=== PATIENT | female | born 1950 | race Caucasian/White ===

== ENCOUNTER 2023-02-17 02:33 | Emergency (ER) | payer OTHER ==
[2023-02-17] MEDS ORDERED: NOREPINEPHRINE BITARTRATE/D5W 4 MG/250 ML BAG IV ONE ×2 (02:48→05:56)
[2023-02-17] MEDS ORDERED: EPINEPHRINE/PF 1 MG/ML AMP ONE (03:10)
[2023-02-17] MEDS ORDERED: D10W 250 ML IV ONE (03:11)
[2023-02-17] MEDS ORDERED: D5W 250 ML IV ONE (03:13)
[2023-02-17 03:18] LABS: Blood O2 Saturation 93.1 % (92-98.5)
[2023-02-17 03:19] LABS: Blood Gas Oxyhemoglobin 91.6 % (94-97)
[2023-02-17 03:47] LABS: Absolute Lymphocytes (CBC) 6.5 K/uL (0.7-4.9); Hematocrit 42.6 % (36.0-45.0); Lymphocytes % 25.8 % (15.3-44.8); MCV 92.8 fL (80-100); Platelets 385 thou/uL (152-406); RBC Red Blood Cell Count 4.59 M/uL (3.86-4.86)
[2023-02-17 04:04] LABS: Protime INR 1.18
[2023-02-17] MEDS ORDERED: MIDAZOLAM HCL IN 0.9 % NACL/PF 100 MG/100 ML BAG IVPB ONE (04:24)
--- NOTE | 2023-02-17 04:24 | EDPHYS ---
Physician Documentation [facility] Name: Sienna Quiles Age: 72 yrs Sex: Female : 1950 Arrival Date: 02/17/2023 Time: 02:33 Bed 3 Private MD: ED Physician Dionisio Damon HPI: 02/17 04:20 This 72 yrs old Female presents to ER via EMS with complaints of cardiac arrest. ms3 04:20 72-year-old female presents via [facility] with unknown past medical history. EMS ms3 states patient's boyfriend told them patient went to take a shower and was taking a long time and he went to check on her and found her unconscious. EMS notes patient's boyfriend started bystander CPR. On EMS arrival patient was in asystole and ACLS was started. 1 push dose epinephrine, and 1 sodium bicarb were given and an epi drip was started. EMS noted patient's blood glucose level to be 229. Patient was intubated in the field with a 7.5 ET tube at 19 cm at the teeth. EMS states they obtained ROSC approximately 5 minutes prior to their arrival in the ED. EMS states they performed ACLS for approximately 30 minutes.. Historical: - Allergies: 04:41 Unable to obtain; lg3 - Home Meds: 04:41 Unable to obtain [Active]; lg3 - PMHx: 04:41 Unable to Obtain; lg3 - PSHx: 04:41 Unable to Obtain; lg3 - Immunization history:: Adult Immunizations unknown. - Social history:: Smoking status: unknown. ROS: 04:24 Unable to obtain ROS due to patient is on ventilator, Patient unresponsive. ms3 Exam: 04:24 Constitutional: The patient appears obviously ill, pale. ms3 04:24 ENT: Nose: Dried blood in bilateral nares. 04:24 Neck: External neck: is normal, ecchymosis, is not appreciated, rash, is not appreciated, swelling, is not appreciated, ROM/movement: 04:24 Chest/axilla: Abrasions from Tariq device. 04:24 Cardiovascular: Rate: tachycardic, Rhythm: irregular, Pulses: no pulse deficits are appreciated, Heart sounds: normal, Bedside ultrasound does not show pericardial effusion. 04:24 ECG was reviewed by the Attending Physician. 04:24 Respiratory: Respirations: Intubated with 7.5 ETT, Clear breath sounds bilaterally with vent. 04:24 Abdomen/GI: Inspection: abdomen appears normal, Palpation: soft. 04:24 Musculoskeletal/extremity: Patient not moving extremities. No edema noted. 04:24 Skin: Pale, non-diaphoretic. 04:24 Neuro: Orientation: unable to test, Mentation: unable to test, Memory: unable to test, Cranial nerves: unable to test, Cerebellar function: unable to test, Motor: unable to test, Sensation: unable to test, GCS 3. Vital Signs: 02:30 BP 87 / 57; Pulse 112; Pulse Ox 90% on ETT vent; ap3 02:59 BP 72 / 45; Pulse 87; ap3 03:02 BP 90 / 50; Pulse 92; ap3 03:06 BP 101 / 56; Pulse 95; Pulse Ox 96% on ETT vent; ap3 03:15 BP 135 / 73; Pulse 100; Pulse Ox 93% on ETT vent; ap3 03:26 Weight 92.5 kg; ap3 03:29 BP 145 / 79; Pulse 103; Pulse Ox 97% on ETT vent; ap3 04:00 BP 174 / 78; Pulse 90; Resp 17 A; Pulse Ox 98% on ETT vent; lg3 04:30 BP 149 / 66; Pulse 69; Resp 18 A; Pulse Ox 98% on ETT vent; lg3 05:00 BP 142 / 68; Pulse 60; Resp 18 A; Pulse Ox 97% on ETT vent; lg3 05:15 BP 119 / 65; Pulse 56; Resp 18 A; Pulse Ox 96% on ETT vent; lg3 06:00 BP 162 / 69; Pulse 70; Resp 19 A; Pulse Ox 98% on ETT vent; lg3 06:15 BP 163 / 72; Pulse 68; Resp 19 A; Temp 93.3(Ca); Pulse Ox 99% on ETT vent; lg3 06:30 BP 168 / 75; Pulse 71; Resp 19 A; Temp 93.7(Ca); Pulse Ox 98% on ETT vent; lg3 07:00 BP 172 / 66; Pulse 64; Resp 20 A; Pulse Ox 98% on ETT vent; ph 07:15 BP 170 / 66; Pulse 59; Resp 20 A; Temp 94.2(Ca); Pulse Ox 97% on ETT vent; ph 07:38 BP 166 / 72; Pulse 59; Resp 18 A; Temp 94.3(Ca); Pulse Ox 96% on ETT vent; ph Procedures: 04:30 Central Line: the site was prepped with Chlorahexadine, a triple lumen catheter was ms3 inserted, in the left internal jugular vein, in 1 attempts. placement was verified, by CXR, by blood return, the site was dressed with Tegaderm, the patient tolerated the procedure, well, Initial line curled on portable cxr. Line repositioned with blood return in all 3 ports. MDM: 02:44 Patient medically screened. ms3 04:31 Differential diagnosis: arrythmia, cardiac arrest, respiratory arrest, overdose. ms3 04:42 Data reviewed: vital signs, nurses notes, lab test result(s), EKG, radiologic studies, ms3 and as a result, I will transfer. Consideration of Admission/Observation Will transfer patient to higher level of care. I considered the following discharge prescriptions or medication management in the emergency department Medications were administered in the Emergency Department. See MAR. Independent interpretation of the following test(s) in the Emergency Department EKG: See my EKG interpretation above X-Ray: My interpretation is 1st CXR image reviewed by me show ETT needing advanced, 2nd CXR image reviewed by me reveal CVL in position. Historians other than the Patient: EMS: [facility]. Daughter/Son: Patient's daughter. Counseling: I had a detailed discussion with the patient and/or guardian regarding lab results, radiology results, the need to transfer to another facility, for higher level of care, discussed with patient's daughter. Response to treatment: the patient's symptoms have mildly improved after treatment, and as a result, I will transfer patient to higher level of care. 05:27 Management of patient was discussed with the following: ICU Physician at [facility]- Dr declan Herron. ED course: Discussed case with Dr Herron. He would like ABG to have pH of 7.3 for transfer. Would also like CT chest for PE and CT aorta for dissection.. 02/17 02:44 Order name: Basic Metabolic Panel; Complete Time: 04:34 ms3 02/17 02:44 Order name: CBC with Diff; Complete Time: 05:19 ms3 02/17 02:44 Order name: Magnesium; Complete Time: 04:34 ms3 02/17 02:44 Order name: PT-INR; Complete Time: 04:19 ms3 02/17 02:44 Order name: Troponin HS; Complete Time: 04:34 ms3 02/17 02:44 Order name: LFT's; Complete Time: 04:34 ms3 02/17 03:17 Order name: Blood Culture Adult (2) ms3 02/17 03:18 Order name: ABG Arterial Blood Gas; Complete Time: 03:21 EDMS 02/17 03:18 Order name: Type And Screen; Complete Time: 05:11 ms3 02/17 04:06 Order name: Lactate w/ 2H reflex if indic.; Complete Time: 05:11 jw7 02/17 05:18 Order name: Manual Differential; Complete Time: 05:19 EDMS 02/17 05:22 Order name: ABG; Complete Time: 06:36 ms3 02/17 06:30 Order name: UDS; Complete Time: 07:07 lg3 02/17 06:30 Order name: Urinalysis W/Microscopic; Complete Time: 07:07 lg3 02/17 06:54 Order name: Urine Culture EDMS 02/17 02:44 Order name: Chest Single View XRAY kl 02/17 03:18 Order name: CT Head Brain wo Cont ms3 02/17 03:21 Order name: CXR XRAY ms3 02/17 04:41 Order name: CT C Spine ms3 02/17 04:41 Order name: Facial Bones W/O Con CT ms3 02/17 05:24 Order name: CT Aorta for Dissection ms3 02/17 02:44 Order name: EKG; Complete Time: 02:45 ms3 02/17 02:44 Order name: Cardiac monitoring; Complete Time: 02:52 ms3 02/17 02:44 Order name: EKG - Nurse/Tech; Complete Time: 02:52 ms3 02/17 02:44 Order name: IV Saline Lock; Complete Time: 02:52 ms3 02/17 02:44 Order name: Labs collected and sent; Complete Time: 02:52 ms3 02/17 02:44 Order name: O2 Per Protocol; Complete Time: 02:52 ms3 02/17 02:44 Order name: O2 Sat Monitoring; Complete Time: 02:52 ms3 02/17 06:20 Order name: Dina Vega; Complete Time: 06:25 ms3 EC:24 Rate is 124 beats/min. Rhythm is regular. NH interval is normal. Clinical impression: ms3 NSR w/ Non-specific ST/T Changes and RBBB. Interpreted by me. Reviewed by me. Administered Medications: 02:42 Drug: Norepinephrine IV 0.1 mcg/min {Note: started at 7mcg/min.} Route: IV; Rate: ap3 calculated rate; Site: right antecubital; 02:53 Follow up: Rate change 15 mcg/min ap3 02:57 Follow up: Rate change 25 mcg/min ap3 02:59 Follow up: Rate change 30 mcg/min ap3 03:23 Follow up: Rate change 20 mcg/min ap3 07:55 Follow up: Response: No adverse reaction; IV Status: Infusion continued upon transfer ph 03:09 Drug: EPINEPHrine (PF) IV 0.01 mcg/min Route: IV; Rate: calculated rate; Site: right ap3 antecubital; 07:55 Follow up: Response: No adverse reaction; IV Status: Infusion continued upon transfer ph 03:49 Drug: Sodium Bicarbonate IVP 1 amp {Note: Given in central line.} Route: IVP; Site: [facility] Other; 04:06 Follow up: Response: No adverse reaction [facility] 04:30 Drug: Midazolam IVP or IV 0.01 mg/kg/h Route: IV; Rate: calculated rate; Site: Other; [facility] 07:54 Follow up: Response: No adverse reaction; RASS: Moderate sedation (-3); IV Status: ph Infusion continued upon transfer 04:51 Drug: Potassium Chloride IV 20 mEq Route: IV; Rate: calculated rate; Site: right lg3 antecubital; 06:41 Follow up: Response: No adverse reaction; IV Status: Completed infusion; IV Intake: lg3 100ml 06:41 Drug: Cefepime IVPB 1 grams Route: IVPB; Rate: 200 ml/hr; Infused Over: 30 mins; Site: 3 right antecubital; 07:15 Follow up: Response: No adverse reaction; IV Status: Completed infusion ph 06:45 Drug: vancoMYCIN IVPB 1 grams Route: IVPB; Infused Over: 2 hrs; Site: right antecubital;[facility] 07:54 Follow up: Response: No adverse reaction; IV Status: Infusion continued upon transfer ph Disposition: 04:44 Critical Care:. ms3 05:29 Chart complete. ms3 Disposition Summary: 02/17/23 04:24 Transfer Ordered Reason: Higher level of care ms3 Condition: Critical ms3 Problem: new ms3 Symptoms: have improved ms3 Transfer Location: [facility](02/17/23 06:32) ms3 Accepting Physician: Dr Herron(02/17/23 08:28) yamil Diagnosis - Cardiac arrest, cause unspecified ms3 - Respiratory arrest ms3 - Hypotension, unspecified ms3 - Acidosis ms3 - C2 fracture ms3 Forms: - Medication Reconciliation Form ms3 - SBAR form ms3 Critical care time excluding procedures: 04:44 Critical care time: Bedside Care: 120 minutes, Family Intervention: 10 minutes. Total ms3 time: 130 minutes Signatures: Dispatcher [employer] EDFifi Aiken, RN RN Tara Cortes RN RN ap3 Yoli Aldana Kandis kj1 Gibson, Lacie RN RN lg3 Dionisio Damon DO DO ms3 Sophy Avalos RN RN jw7 Lay Faye RN ph Corrections: (The following items were deleted from the chart) 04:55 04:24 Dr manriquez kj1 05:29 04:55 Dr august ms3 06:05 05:24 Chest For PE Angio+CT.RAD.BRZ ordered. EDHI EDMS 06:32 04:24 [facility] ms3 ms3 06:32 05:29 Dr Herron ms3 ms3 08:28 06:32 Dr Merchant [email or web address] eb
--- NOTE | 2023-02-17 04:24 | ER ---
Nurse's Notes [facility] Name: Sienna Quiles Age: 72 yrs Sex: Female : 1950 Arrival Date: 02/17/2023 Time: 02:33 Bed 3 Private MD: Diagnosis: Cardiac arrest, cause unspecified;Respiratory arrest;Hypotension, unspecified;Acidosis;C2 fracture Presentation: 02/17 02:30 Chief complaint: EMS states: patient was found down with asystole at approx 0135 by the ap3 boyfriend. boyfriend reportedly started CPR until EMS arrived and took over. EMS states they preformed CPR for approx 45min. EMS gave EPI IV push X's 1, then started an EPI drip. EMS reports that ROSC was achieved at approx 0128 HEALTH TECHNICIAN. EMS initiated an 18g IV in the Right AC. Coronavirus screen: At this time, the client does not indicate any symptoms associated with coronavirus-19. Ebola Screen: No symptoms or risks identified at this time. Initial Sepsis Screen: Does the patient meet any 2 criteria? Mean Arterial Pressure (MAP) < 65. HR > 90 bpm. Yes Does the patient have a suspected source of infection?. Risk Assessment: Do you want to hurt yourself or someone else? Patient reports no desire to harm self or others. Onset of symptoms was February 17, 2023. 02:30 Care prior to arrival: Oral intubation, 7.5 ET tube placed by EMS in route 19 at the ap3 teeth CPR manually via thumper performed by bystander performed by EMS Medication(s) given: EPI push X's 1, EPI drip initiated in route IV initiated. 18 GA, in the left antecubital area, Glucose check: 329. 02:47 Method Of Arrival: EMS: [facility] ap3 02:47 Acuity: JILLIAN 1 ap3 Triage Assessment: 02:54 General:. Neuro: Level of Consciousness is unresponsive. Cardiovascular: Pulses are ap3 absent in left carotid pulse and right carotid pulse. Respiratory: Airway via oral intubation Ventilator assessment: ET Tube: 7.5 22 cm at the teeth. Historical: - Allergies: 04:41 Unable to obtain; lg3 - Home Meds: 04:41 Unable to obtain [Active]; lg3 - PMHx: 04:41 Unable to Obtain; lg3 - PSHx: 04:41 Unable to Obtain; lg3 - Immunization history:: Adult Immunizations unknown. - Social history:: Smoking status: unknown. Screenin:56 Nutritional screening: No deficits noted. Tuberculosis screening: No symptoms or risk ap3 factors identified. 03:29 [facility] ED Fall Risk Assessment (Adult). ap3 07:51 Abuse screen: Denies threats or abuse. Denies injuries from another. ph Assessment: 02:53 General: ET tube was adjusted by ED provider to 22 at the teeth. ap3 03:00 General: Behavior is unresponsive. Pain: Unable to use pain scale. Patient is lg3 unresponsive. Neuro: Reza Agitation-Sedation Scale (RASS): -5 Unarousable Level of Consciousness is unresponsive. Cardiovascular: No deficits noted. Rhythm is sinus tachycardia. Respiratory: Ventilator assessment: ET Tube: 7.5 22 at teeth HOB > 30 degrees. GI: No deficits noted. Abdomen is round non-distended. : No deficits noted. EENT: Eyes pupils fixed and dialated. Sclera/Cornea are cloudy in right eye and left eye. Derm: Skin is intact, Skin is dry, Skin is pale, Skin temperature is cool generalized skin tears to bilateral arms. Musculoskeletal: unresponsive. 03:30 General: pt gaging on ET tube at this time. provider notified. lg3 04:46 Reassessment: No changes from previously documented assessment. Patient and/or family lg3 updated on plan of care and expected duration. Pain level reassessed. 06:29 Reassessment: No changes from previously documented assessment. Patient and/or family lg3 updated on plan of care and expected duration. Pain level reassessed. 07:52 Reassessment: Patient appears in no apparent distress at this time. No changes from ph previously documented assessment. Patient and/or family updated on plan of care and expected duration. Pain level reassessed. Family at bedside. Vital Signs: 02:30 BP 87 / 57; Pulse 112; Pulse Ox 90% on ETT vent; ap3 02:59 BP 72 / 45; Pulse 87; ap3 03:02 BP 90 / 50; Pulse 92; ap3 03:06 BP 101 / 56; Pulse 95; Pulse Ox 96% on ETT vent; ap3 03:15 BP 135 / 73; Pulse 100; Pulse Ox 93% on ETT vent; ap3 03:26 Weight 92.5 kg; ap3 03:29 BP 145 / 79; Pulse 103; Pulse Ox 97% on ETT vent; ap3 04:00 BP 174 / 78; Pulse 90; Resp 17 A; Pulse Ox 98% on ETT vent; lg3 04:30 BP 149 / 66; Pulse 69; Resp 18 A; Pulse Ox 98% on ETT vent; lg3 05:00 BP 142 / 68; Pulse 60; Resp 18 A; Pulse Ox 97% on ETT vent; lg3 05:15 BP 119 / 65; Pulse 56; Resp 18 A; Pulse Ox 96% on ETT vent; lg3 06:00 BP 162 / 69; Pulse 70; Resp 19 A; Pulse Ox 98% on ETT vent; lg3 06:15 BP 163 / 72; Pulse 68; Resp 19 A; Temp 93.3(Ca); Pulse Ox 99% on ETT vent; lg3 06:30 BP 168 / 75; Pulse 71; Resp 19 A; Temp 93.7(Ca); Pulse Ox 98% on ETT vent; lg3 07:00 BP 172 / 66; Pulse 64; Resp 20 A; Pulse Ox 98% on ETT vent; ph 07:15 BP 170 / 66; Pulse 59; Resp 20 A; Temp 94.2(Ca); Pulse Ox 97% on ETT vent; ph 07:38 BP 166 / 72; Pulse 59; Resp 18 A; Temp 94.3(Ca); Pulse Ox 96% on ETT vent; ph ED Course: 02:30 Patient has correct armband on for positive identification. Placed in gown. Bed in low ap3 position. Call light in reach. Side rails up X2. 02:35 Patient arrived in ED. kj1 02:35 youth nutritional monitor on. Pulse ox on. NIBP on. cardiac CPR pads placed on patient. ap3 02:44 Dionisio Damon DO is Attending Physician. ms3 02:50 Triage completed. ap3 02:59 Chest Single View XRAY In Process Unspecified. EDMS 03:18 Assisted provider with central line placement. Set up central line tray. Triple lumen ap3 line placed in left internal jugular. Line placed by Dionisio Damon DO Time-out/Briefing performed prior to start of procedure? Yes. Was handwashing/sanitizing done immediately prior to procedure? Yes. Was patient positioned to in a way to prevent air embolism? Yes. Was procedure site sterilized? Yes, with chlorhexidine. Was the site allowed to dry? Yes. Was local anesthetic and/or sedation utilized? No. During the procedure, did the Practitioner(s) maintain a sterile field? Yes. Were unused ports clamped during insertion? Yes. After the procedure, did the Practitioner(s) clean the site and apply a sterile dressing? Yes. 03:29 Arm band placed on right wrist. ap3 03:30 Maintain EMS IV. Dressing intact. Good blood return noted. Site clean \T\ dry. Gauge \T\ lg 3 site: 18RAC. 03:48 Klaudia Kirk, RN is Primary Nurse. lg3 03:55 CXR XRAY In Process Unspecified. EDMS 04:09 CT Head Brain wo Cont In Process Unspecified. EDMS 04:46 Family accompanied patient. lg3 04:53 transfer initiated with Madeleine Kirk from the [facility] by [facility] eb Tech. 05:[address] [facility]. kj1 06:04 CT C Spine In Process Unspecified. EDMS 06:04 Facial Bones W/O Con CT In Process Unspecified. EDMS 06:04 CT Aorta for Dissection In Process Unspecified. EDMS 06:[address] Herrera from [facility] with Dr. Damon for patient results. eb 06:28 Herring cath inserted, using sterile technique, 16 Fr., by wv, balloon inflated, to lg3 gravity drainage, urine specimen collected. returned clear yellow urine. 06:29 Rigid cervical collar applied and checked by physician. lg3 06:30 oral gastric tube 16 cypriot verified by auscultation. kl 06:35 initiated a transfer with Vicenta from the [facility]. eb 06:46 Urinalysis W/Microscopic Sent. lg3 06:46 UDS Sent. lg3 06:48 connected the Trauma doctor production quality manager for [facility] with Dr. Damon for patient eb transfer consultation. 06:51 administrative approval given by Vicenta Alonzo Rn/ patient has been accepted to [facility] ER/ Dr. Eunice Oneal has accepted the patient transfer. report to be called to [phone]. 07:00 called [facility] for transport. eb 07:52 Patient transferred, IV remains in place. ph Administered Medications: 02:42 Drug: Norepinephrine IV 0.1 mcg/min {Note: started at 7mcg/min.} Route: IV; Rate: ap3 calculated rate; Site: right antecubital; 02:53 Follow up: Rate change 15 mcg/min ap3 02:57 Follow up: Rate change 25 mcg/min ap3 02:59 Follow up: Rate change 30 mcg/min ap3 03:23 Follow up: Rate change 20 mcg/min ap3 07:55 Follow up: Response: No adverse reaction; IV Status: Infusion continued upon transfer ph 03:09 Drug: EPINEPHrine (PF) IV 0.01 mcg/min Route: IV; Rate: calculated rate; Site: right ap3 antecubital; 07:55 Follow up: Response: No adverse reaction; IV Status: Infusion continued upon transfer ph 03:49 Drug: Sodium Bicarbonate IVP 1 amp {Note: Given in central line.} Route: IVP; Site: [address]; 04:06 Follow up: Response: No adverse reaction [facility] 04:30 Drug: Midazolam IVP or IV 0.01 mg/kg/h Route: IV; Rate: calculated rate; Site: Other; lg3 07:54 Follow up: Response: No adverse reaction; RASS: Moderate sedation (-3); IV Status: ph Infusion continued upon transfer 04:51 Drug: Potassium Chloride IV 20 mEq Route: IV; Rate: calculated rate; Site: right lg3 antecubital; 06:41 Follow up: Response: No adverse reaction; IV Status: Completed infusion; IV Intake: lg3 100ml 06:41 Drug: Cefepime IVPB 1 grams Route: IVPB; Rate: 200 ml/hr; Infused Over: 30 mins; Site: lg3 right antecubital; 07:15 Follow up: Response: No adverse reaction; IV Status: Completed infusion ph 06:45 Drug: vancoMYCIN IVPB 1 grams Route: IVPB; Infused Over: 2 hrs; Site: right antecubital;lg3 07:54 Follow up: Response: No adverse reaction; IV Status: Infusion continued upon transfer ph Medication: 07:52 VIS not applicable for this client. ph Intake: 06:41 IV: 100ml; Total: 100ml. lg3 Outcome: 04:24 ER care complete, transfer ordered by . ms3 07:52 Transferred by ground EMS [facility]. to [facility], Transfer form ph completed. X-rays sent w/ patient. 07:52 Condition: stable 08:28 Patient left the ED. eb Signatures: Dispatcher [employer] EDMS Fifi Wan, RN Lay Lemon RN RN ph Prokisch, Amanda RN RN ap3 Yoli Aldana Wilberto, Teresa kj1 Klaudia Kirk RN RN lg3 Dionisio Damon DO DO ms3 Sophy Avalos RN RN jw7 Corrections: (The following items were deleted from the chart) 53 02:47 Chief complaint: EMS states: patient was found down with asystole at approx 0135 ap3 by the boyfriend. boyfriend reportedly started CPR until EMS arrived and took over. EMS states they preformed CPR for approx 45min. EMS gave EPI IV push X's 1, then started an EPI drip. EMS reports that ROSC was achieved at approx 0128 HEALTH TECHNICIAN. EMS initiated an 18g IV in the Right AC ap3 :53 02:47 Coronavirus screen: At this time, the client does not indicate any symptoms ap3 associated with coronavirus-19. ap3 :53 02:47 Ebola Screen: No symptoms or risks identified at this time. ap3 ap3 :53 02:47 Risk Assessment: Do you want to hurt yourself or someone else? Patient reports no ap3 desire to harm self or others. ap3 :53 02:47 Onset of symptoms was February 17, 2023 ap3 ap3 0253 02:47 Initial Sepsis Screen: Does the patient meet any 2 criteria? Mean Arterial ap3 Pressure (MAP) < 65. HR > 90 bpm. Yes Does the patient have a suspected source of infection? ap3 02:53 02:47 BP 87 / 57; Pulse 112bpm; Pulse Ox 90% ET / Ventilator; ap3 ap3 06:27 04:53 transfer initiated with Madeleine Kirk from the [facility] 06:48 06:27 BP 163 / 72; Pulse 68bpm; Resp 19bpm; Assisted; Pulse Ox 99% ET / Ventilator; lg3 Temp 93.3F Catheter; lg3
--- OUTSIDE RECORDS SUMMARY | 2023-02-17 04:28 | XMS REPORT | Continuity of Care Document ---
:1950 Author Organization [facility] t Address [address] [place] [address] [address] [place] [address] Care Team Providers Name Role Phone None, None Primary Care Physician Unavailable Baljeet Rodríguez Attending Clinician Unavailable MILADYS RODARTE Attending Clinician Unavailable DANILE BANKS Attending Clinician Unavailable CARLEE WESTON Attending Clinician Unavailable CARLEE WESTON Attending Clinician Unavailable JESSICA URIAS Attending Clinician Unavailable ABIGAIL BANEGAS Attending Clinician Unavailable LAB90 Attending Clinician Unavailable OFE PADILLA Attending Clinician Unavailable MAIKEL KILGORE Attending Clinician Unavailable LISETTE WELDON Attending Clinician Unavailable MORENITA CASTELLANO Attending Clinician Unavailable DON HARRIS Attending Clinician Unavailable JARON WILLIAM Attending Clinician Unavailable YUSUF REBOLLAR Attending Clinician Unavailable KALPANA BELCHER Attending Clinician Unavailable DONALD OJEDA Attending Clinician Unavailable Lisette Weldon Attending Clinician Unavailable TOBIN SIMMONS Attending Clinician Unavailable EDUCATION, TOTAL JOINT Attending Clinician Unavailable MELVIN STRICKLAND Attending Clinician Unavailable Maikel Kilgore DO Attending Clinician ROZ FRANKEL Attending Clinician Unavailable Sharif Cruz Attending Clinician Sharon Shahid Attending Clinician SHARON SHAHID Attending Clinician Unavailable SEUN WYMAN Attending Clinician Unavailable Doctor Unassigned, Chambers Attending Clinician Unavailable Sharon Shahid MD Attending Clinician Francisco Olvera MD Attending Clinician Carlee Weston Attending Clinician SHARIF CRUZ Attending Clinician Unavailable Luiz Booth Attending Clinician Rob Bhagat Attending Clinician ROB BHAGAT Attending Clinician Unavailable Elicia Gasca NP Attending Clinician VISIT, NURSE BRYANNA Attending Clinician Unavailable MORENITA ALTAMIRANO Attending Clinician Unavailable Morenita Altamirano Jr Attending Clinician Siria Manzo MD Attending Clinician TRE HOLDER Attending Clinician Unavailable Celia Saucedo Attending Clinician [facility] Attending Clinician Unavailable Emma Prado Attending Clinician Baljeet Rodríguez Admitting Clinician Unavailable Lisette Weldon Admitting Clinician Unavailable Christina Corral Admitting Clinician CHRISTINA CORRAL Admitting Clinician Unavailable ADIS RECINOS Admitting Clinician Unavailable Adis Recinos Jr Admitting Clinician Payers Payer Name Policy Type Policy Number Effective Date Expiration Date [place] AETNA MEDICARE [id number] 2019 2019 PPO 00:00:00 00:00:00 AETNA MEDICARE [id number] 2019 OUT OF NETWORK 00:00:00 GENE ROGERS 16 [id number] 2021 F[employer] HMO-POS 00:00:00 MEDICARE-PART B 5 [id number] 2020 00:00:00 AETNA MEDICARE C1 [id number] Common S pirit - [facility] Problems Condition Condition Condition Status Onset Resolution Last Treating Co mments Source Name Details Category Date Date Treatment Clinician Date At risk At risk Disease Active Lalita for falls for falls 01-29 Seyb old 00:00: - 00 Externa l Repeated Repeated Disease Active Kelse y falls falls 01-29 Seybold 00:00: - 00 Externa l Glaucoma Glaucoma Disease Active Overview: Vance lsey 01-16 Formattin Seybold 00:00: g of this - 00 note Externa might be l different from the original. Optometry Dr. 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 Se ybold sis sis 00:00: - 00 Externa l Obesity Obesity Disease Active Lalita 01-16 Seybold 00:00: - 00 Externa l Preop Preop Disease Active Lalita examinatio examinatio 309 Se ybold n n 00:00: - 00 Externa l Primary Primary Disease Active Lalita osteoarthr osteoarthr 01-12 Se ybold itis of itis of 00:00: - left knee left knee 00 Exte rna l Bladder Bladder Disease Active Lalita mass mass 01-12 Seybold 00:00: - 00 Externa l Sensorineu Sensorineu Disease Active Serena butlery ral ral 01-12 Seybold hearing hearing 00:00: - loss loss 00 Externa (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 Gastroesop Gastroesop Disease Active Serena carrieadrián hageal hageal 01-12 Seybold reflux reflux 00:00: - disease disease 00 Externa without without l esophagiti esophagiti s s Urge Urge Disease Active Lalita incontinen incontinen 7-22 Se ybold ce of ce of 00:00: - urine urine 00 Externa l EPIGASTRIC EPIGASTRI Diagnosis Active 2021-08-16 Memoria PAIN C PAIN 07-12 10:04:00 l Active 00:00: [place] 07/12/2021 00 [facility] Gastric Gastric Disease Active 2020-06 [place] band band 2-08 Health erosion erosion 00:00: 00 R10.13 / R10.13 / Diagnosis Active 2020-062021-05-24 Memoria Z98.84 / Z98.84 / 07-12 09:55:00 l K21.9 / K21.9 / 00:00: [place] D50.9 D50.9 00 Active 05/12/2021 [facility] Complicati Complicati Disease Active 2020-06 U T on of on of 06-24 [facility] surgical surgical 00:00: procedure procedure 00 UNK UNK Diagnosis Active 2020-062021-04-28 Mem oria Active 0- 12:03:00 l 04/19/2021 00:00: [facility] 00 [place] CYSTO CYSTO Diagnosis Active 2020-062021-05-03 Mem oria Active 0-27 10:31:00 l 04/19/2021 00:00: [facility] 00 [place] HIP HIP Diagnosis Active 2020-062021-06-09 Mem oria FRACTURE FRACTURE 0-16 11:26:00 l Active 00:00: Ran 04/08/2021 00 [place] EGD /C EGD /C Diagnosis Active 2020-062021-04-12 Me moria DILATION DILATION 0-15 15:48:00 l /STENT /STENT 00:00: [place] PLACEMENT PLACEMENT 00 / APOLL / APOLL Active 04/07/2021 [facility] AC GI AC GI Diagnosis Active 2021-02-20 Mem oria BLEEDING, BLEEDING, 02-09 21:43:00 l SYMPTOMATI SYMPTOMATI 00:00: He rmann C ANEMIA, C ANEMIA, 00 SYNC SYNC Active 02/09/2021 [facility] BLOOD IN BLOOD IN Diagnosis Active 2021-02-09 Memoria STOOL/WEAK STOOL/WEAK 02-09 21:10:00 l NESS NESS 00:00: Ran Active 00 02/09/2021 [facility] EGD / EGD / Diagnosis Active 2021-01-30 Mem oria STENT STENT 12-29 07:04:00 l REMOVAL / REMOVAL / 00:00: Herm miguel MAC MAC 00 Active 12/29/2020 [facility] EGD /C EGD /C Diagnosis Active 2021-01-17 Me moria STENT STENT 12-27 12:34:00 l PLACEMENT PLACEMENT 00:00: Herm miguel /C C-ARM / /C C-ARM / 00 MAC MAC Active 12/27/2020 [facility] Z98.84 - Z98.84 - Diagnosis Active 2020-12-30 Memoria BARIATRIC BARIATRIC 12-19 16:54:00 l SURGERY SURGERY 00:01: Ran STATUS STATUS 00 R10.13 R10.13 Active 2020 [place] EGD EGD Diagnosis Active 2020-12-30 Mem oria Active 11-30 16:54:00 l 11/30/2020 00:00: [facility] 00 [place] K21.9 K21.9 Diagnosis Active 2020-12-13 Mem oria Active 11-30 16:32:00 l 11/30/2020 00:00: [facility] 00 [place] Does use Does use Problem Active 2021-10-18 Memoria hearing hearing 21:49:53 l aid aid Ran (finding) (finding) Active Problem 10/18/2021 BILATERAL EAR Medical [facility] her Neuro,[facility], [place],[facility], VERA [place],[facility] [place] Does use Does use Problem Active 2021-10-18 Memoria spectacles spectacles 21:49:53 l (finding) (finding) Herm miguel Active Problem 10/18/2021 [facility] her Neuro,[facility], Rafa,M [facility], VERA [place],[facility] [place] Female Female Problem Active 2021-10-18 [place] timbo urinary urinary 21:49:53 l stress stress Ran incontinen incontinen ce ce (finding) (finding) Active Problem 10/18/2021 [facility] her Neuro,[facility],M [facility], VERA [place],[facility] [place] Gastroesop Gastroeso Problem Resolve 2021-10-18 Memoria hageal phageal d 21:49:53 l reflux reflux Ran disease disease (disorder) (disorder) Resolved Problem 10/18/2021 Medical Group,[facility] her Neuro,[facility], H [facility], VERA [place],[facility] [place] Hearing Hearing Problem Active 2021-10-18 Me moria loss loss 21:49:53 l (finding) (finding) Herm miguel Active Problem 10/18/2021 Medical [facility] her Neuro,[facility], [facility], VERA [place],[facility] History of History Problem Active 2021-10-18 Memoria bariatric of 21:49:53 l surgical bariatric Hermila nn procedure surgical (situation procedure ) (situation ) Active Problem 10/18/2021 Medical [facility] her Neuro,[facility], [place] Anemia Anemia Problem Active 2021-10-18 [place] timbo (disorder) (disorder) 21:49:53 l Active Ran Problem 10/18/2021 Medical [facility] her Neuro,[facility], [place] Visual Visual Problem Active 2021-10-18 [place] timbo impairment impairment 21:49:53 l (disorder) (disorder) He rmmiguel Active Problem 10/18/2021 Medical Group,[facility] her Neuro,[facility], [facility], [place] Genuine Genuine Problem Active 2021-10-18 Me moria stress stress 21:49:53 l incontinen incontinen He zaida ce ce (finding) (finding) Active Problem 10/18/2021 Medical [facility] her Neuro,[facility], [facility] Hiatal Hiatal Problem Active 2021-10-18 [place] timbo hernia hernia 21:49:53 l (disorder) (disorder) He zaida Active Problem 10/18/2021 Medical [facility] her Neuro,[facility], [facility] Iron Iron Problem Active 2021-10-18 Memor ia deficiency deficiency 21:49:53 l anemia anemia Ran (disorder) (disorder) Active Problem 10/18/2021 Medical Group,[facility] her Neuro,[facility], Giana Craig [facility] GASTROINTE GASTROINT Diagnosis Active 2021-02-20 Memoria STINAL ESTINAL 21:43:00 l HEMORRHAGE HEMORRHAGE He rmann , , UNSPECIFIE UNSPECIFIE D D Active [facility] ANEMIA, ANEMIA, Diagnosis Active 2021-02-20 Memoria UNSPECIFIE UNSPECIFIE 21:43:00 l D D Active Ran [facility] SYNCOPE SYNCOPE Diagnosis Active 2021-02-20 Memoria AND AND 21:43:00 l COLLAPSE COLLAPSE Fuad n Active [facility] No known No known Disease Unive rs active active ity of problems problems [facility] Upper Upper Problem Resolve 2021-10-18 2021-10-18 Memoria gastrointe gastrointe d 8-16 21:49:53 21:49:53 l stinal stinal 00:00: [place] hemorrhage hemorrhage 00 (disorder) (disorder) Resolved 02/06/2021 Problem 10/18/2021 Medical Group,[facility] her Neuro,[facility], Giana Craig [facility] History of Past Illness Condition Condition Condition Status Onset Resolution Last Treating Co mments Source Name Details Category Date Date Treatment Clinician Date Other Other Problem 2020-062021-05-08 2021-05-08 M emoria specified specified 07-03 07:37:21 07:37:21 l disorders disorders 20:21: Herm miguel of bladder of bladder 00 05/03/2021 05/08/2021 Rafa Other Other Problem 2020-062021-05-08 2021-05-08 M emoria specified specified 07-03 07:37:21 07:37:21 l disorders disorders 20:21: Herm miguel of kidney of kidney 00 and ureter and ureter 05/08/2021 Rafa Unspecifie Unspecifi Problem 2020-062021-05-08 2021-05-08 Memoria d ed 07-03 07:37:21 07:37:21 l hydronephr hydronephr 20:21: He rmann osis osis 00 05/03/202105/0805/08/2021 [facility] Allergies, Adverse Reactions, Alerts Allergy Allergy Status Severity Reaction(s) Onset Inactive Treating Comm ents Source Name Type Date Date Clinician No Known DA Active [facility] Allergie 09-17 [facility] 00:00: [facility]ope 00 dic Hospita [facility] NO KNOWN Drug Active Univers ALLERGIE Class ity of S [facility] Social History Social Habit Start Date Stop Date Quantity Comments Source History of Tobacco [facility] - Use [facility] Exposure to Not sure [facility] SARS-CoV-2 (event) Gender identity Lalita go - External Sexual orientation Lalita Chester - External History SDOH Lalita irizarry - Alcohol Frequency Externa l History SDOH Lalita irizarry - Alcohol Std Drinks Adaptive Physical Education Specialist al History SDOH Lalita irizarry - Alcohol Binge External Alcohol intake 2023-01-29 2023-01-29 Current drinker of Vance Chester - 00:00:00 00:00:00 alcohol (finding) Externa l Alcohol Comment 2023-01-16 2023-01-16 occasionally Lalita Chester - 00:00:00 00:00:00 External History of Social 2022-01-12 2022-01-12 Lalita Chester - function 00:00:00 00:00:00 External Tobacco use and 2022-01-12 2022-01-12 Smokeless tobacco Vance Chester - exposure 00:00:00 00:00:00 non-user External Education 2022-01-12 2022-01-12 16 Lalita Chester - 00:00:00 00:00:00 External Social History 2021-08-08 2021-08-08 [facility] 15:17:11 15:17:11 Tobacco use and 2019-10-12 2019-10-12 Never used Universit y of exposure 00:00:00 00:00:00 [facility] Sex Ass[birth year] At [birth year] Lalita go - 00:00:00 00:00:00 External Smoking Status Start Date Stop Date Source Never smoked tobacco Lalita merino - External Medications Ordered Filled Start Stop Current Ordering Indication Dosage Frequency Signature Comments Components Source Medication Medication Date Date Medication? Clinician (SIG) Name Name Brinzolamid Yes Apply to Ke lsey e (AZOPT 8-08 eye Seybold OP) 10:18: - 13 Externa l Topiramate 0 Yes [id number] 25mg Take 1 Lalita (Topamax) 8-08 tablet (25 Seyb old 25 MG oral 00:00: mg total) - Tablet 00 by mouth 2 Externa times l daily [place] Yes [id number] 24ug Take 1 Lalita e 24 MCG 8-08 capsule Seybold oral 00:00: (24 mcg - Capsule 00 total) by Externa mouth in l the morning and 1 capsule (24 mcg total) in the evening. Take with meals. Naproxen 2022-0 2022- No 440mg Take 2 Kelse y Sodium 220 7-26 07-26 tablets Seybo ld MG oral 08:33: 00:00 (440 mg - Tablet 22 :00 total) by Externa mouth l daily Brinzolamid Yes Apply to Vance deleoney e (AZOPT 7-26 eye Seybold OP) 08:28: - 09 Externa l Valacyclovi Yes [id number] 500mg Take 1 Lalita r HCl 7-26 tablet Seybold (Valtrex) 00:00: (500 mg - 500 MG oral 00 total) by Ext nettie Tablet mouth l daily Semaglutide Yes [id number] .25mg Inject Lalita -JOY-Brandon 7-26 0.25 mg Seybo ld ght 00:00: into the - Management 00 skin once Exte rna 0.25 a week l MG/0.5ML Subcutaneou s Solution Auto-inject or Valacyclovi 0 Yes [id number] 500mg Take 1 Lalita r HCl 7-26 tablet Seybold (Valtrex) 00:00: (500 mg - 500 MG oral 00 total) by Ext nettie Tablet mouth l daily Semaglutide 0 Yes [id number] .25mg Inject Lalita -WEGOVY-Brandon 7-26 0.25 mg Seybo ld ght 00:00: into the - Management 00 skin once Exte rna 0.25 a week l MG/0.5ML Subcutaneou s Solution Auto-inject or Brinzolamid Yes Apply to Ke lsey e (AZOPT 5-08 eye Seybold OP) 10:32: - 10 Externa l Naproxen 0 Yes 440mg Take 2 Lalita Sodium 220 5-08 tablets Seybol d MG oral 10:32: (440 mg - Tablet 10 total) by Externa mouth l daily Brinzolamid Yes Apply to Ke lsey e (AZOPT 5-03 eye Seybold OP) 08:27: - 58 Externa l Naproxen 0 Yes 440mg Take 2 Lalita Sodium 220 5-03 tablets Seybol d MG oral 08:27: (440 mg - Tablet 58 total) by Externa mouth l daily Brinzolamid Yes Apply to Ke lsey e (AZOPT 4-26 eye Seybold OP) 13:24: - 08 Externa l Naproxen 0 Yes 440mg Take 2 Lalita Sodium 220 4-26 tablets Seybol d MG oral 13:24: (440 mg - Tablet 08 total) by Externa mouth l daily Valacyclovi Yes [id number] 500mg Take 1 Lalita r HCl 4-26 tablet Seybold (Valtrex) 00:00: (500 mg - 500 MG oral 00 total) by Ext nettie Tablet mouth 2 l times daily Valacyclovi Yes [id number] 500mg Take 1 Lalita r HCl 4-26 tablet Seybold (Valtrex) 00:00: (500 mg - 500 MG oral 00 total) by Ext nettie Tablet mouth 2 l times daily Valacyclovi Yes [id number] 500mg Take 1 Lalita r HCl 4-26 tablet Seybold (Valtrex) 00:00: (500 mg - 500 MG oral 00 total) by Ext nettie Tablet mouth 2 l times daily Valacyclovi 2022- No [id number] 500mg Take 1 Lalita r HCl 4-26 07-26 tablet Seybold (Valtrex) 00:00: 00:00 (500 mg - 500 MG oral 00 :00 total) by Ext nettie Tablet mouth 2 l times daily HYDROcodone 2022- No [id number] 1{tbl} Take 1 Lalita -Acetaminop 4-12 04-26 tablet by Se abbi cardoso (iExplore) 00:00: 00:00 mouth - 10-325 MG 00 :00 every 4 to Exte rna oral Tablet 6 hours l Brinzolamid 2022-0 Yes Apply to Ke lsey e (AZOPT 4-10 eye Seybold OP) 13:23: - 12 Externa l Naproxen 2022-0 Yes 440mg Take 2 Lalita Sodium 220 4-10 tablets Seybol d MG oral 13:23: (440 mg - Tablet 12 total) by Externa mouth l daily HYDROcodone 2022-0 Yes [id number] 1{tbl} Take 1 Lalita -Acetaminop 4-03 tablet by Sola cardoso (iExplore) 00:00: mouth - 10-325 MG 00 every 4 to Exte rna oral Tablet 6 hours l Aspirin 325 2022-0 Yes 325mg Take 1 Aleksey sey MG oral 3-27 tablet Seybold Tablet 00:00: (325 mg - 00 total) by Externa mouth l daily Aspirin 325 2022-0 2023- No 325mg Take 1 Ke lsey MG oral 3-27 04-26 tablet Seybold Tablet 00:00: 00:00 (325 mg - 00 :00 total) by Externa mouth l daily Brinzolamid 2022-0 Yes Apply to Ke lsey e (AZOPT 3-09 eye Seybold OP) 08:45: - 49 Externa l Naproxen 2022-0 Yes 440mg Take 440 Lucita ey Sodium 220 3-09 mg by Seybold MG oral 08:45: mouth - Tablet 49 daily Externa l Valacyclovi 2022-0 Yes [id number] 500mg Take 1 Lalita r HCl 3-09 tablet Seybold (Valtrex) 00:00: (500 mg - 500 MG oral 00 total) by Ext nettie Tablet mouth 2 l times daily Valacyclovi 2022-0 Yes [id number] 500mg Take 1 Lalita r HCl 3-09 tablet Seybold (Valtrex) 00:00: (500 mg - 500 MG oral 00 total) by Ext nettie Tablet mouth 2 l times daily Valacyclovi 2022-0 2023- No [id number] 500mg Take 1 Lalita r HCl 3-09 04-26 tablet Seybold (Valtrex) 00:00: 00:00 (500 mg - 500 MG oral 00 :00 total) by Ext nettie Tablet mouth 2 l times daily Brinzolamid Yes Apply to Vance oneil e (AZOPT -06 eye Seybold OP) 13:22: - 21 Externa l Naproxen 2022-0 Yes 440mg Take 440 Lucita ey Sodium 220 3-06 mg by Seybold MG oral 13:22: mouth - Tablet 21 daily Externa l Mupirocin 0 Yes [id number] Apply a Lalita (BACTROBAN) 08-27 9109 small Seybold 2 % apply 00:00: amount to - externally 00 a Q-tip Adaptive Physical Education Specialist a Ointment then to l each nostril BID 5 days before surgery. Dispense 22 single use tubes. Mupirocin 2022-0 Yes [id number] Apply a Lalita (BACTROBAN) 08-27 91 small Seybold 2 % apply 00:00: amount to - externally 00 a Q-tip Adaptive Physical Education Specialist a Ointment then to l each nostril BID 5 days before surgery. Dispense 22 single use tubes. Mupirocin 2022-0 Yes [id number] Apply a Lalita (BACTROBAN) 08-27 9109 small Seybold 2 % apply 00:00: amount to - externally 00 a Q-tip Adaptive Physical Education Specialist a Ointment then to l each nostril BID 5 days before surgery. Dispense 22 single use tubes. Mupirocin 2022-0 2022- No [id number] Apply a Lalita (BACTROBAN) 08-27 9109 small Seybol d 2 % apply 00:00: 00:00 amount to - externally 00 :00 a Q-tip Adaptive Physical Education Specialist a Ointment then to l each nostril BID 5 days before surgery. Dispense 22 single use tubes. METHYLPREDN 2022-0 2022- No [id number] 40mg Lalita ISOLONE 07-2308 Seybold ACETATE 40 16:30: 16:33 - MG/ML IJ 00 :00 Externa SUSP l METHYLPREDN 2022-0 2022- No [id number] 40mg 40 mg, Lalita ISOLONE 07-23 Physician Seybol d ACETATE 40 16:30: 16:33 Administer - MG/ML IJ 00 :00 ed, ONCE, Adaptive Physical Education Specialist a SUSP 1 dose, On l 07/23/22 at 1030 Brinzolamid 3-0 Yes Apply to Ke lsey e (AZOPT 1-30 eye Seybold OP) 09:35: - 48 Externa l Naproxen 2022-0 Yes 440mg Take 440 Lucita ey Sodium 220 1-30 mg by Seybold MG oral 09:35: mouth - Tablet 48 daily Externa l Brinzolamid 2022-0 Yes Apply to Ke lsey e (AZOPT 1-30 eye Seybold OP) 09:35: - 48 Externa l Naproxen 2022-0 Yes 440mg Take 440 Lucita ey Sodium 220 1-30 mg by Seybold MG oral 09:35: mouth - Tablet 48 daily Externa l Brinzolamid 2022-0 Yes Apply to Ke lsey e (AZOPT 1-26 eye Seybold OP) 08:31: - 51 Externa l Naproxen 3-0 Yes 440mg Take 440 Lucita ey Sodium 220 1-26 mg by Seybold MG oral 08:31: mouth - Tablet 51 daily Externa l Oxybutynin 2-0 Yes 5mg Take 1 Kelse y Chloride 5 5-04 tablet (5 Seyb old MG oral 00:00: mg total) - Tablet 00 by mouth 2 Externa times l daily Oxybutynin 2021-0 Yes 1{tbl} Take 1 Aleksey sey Chloride 5 5-04 tablet by Seyb old MG oral 00:00: mouth 2 - Tablet 00 times Externa daily l Oxybutynin 2021-0 Yes 1{tbl} Take 1 Aleksey sey Chloride 5 5-04 tablet by Seyb old MG oral 00:00: mouth 2 - Tablet 00 times Externa daily l Oxybutynin 2021-0 Yes 1{tbl} Take 1 Aleksey sey Chloride 5 5-04 tablet by Seyb old MG oral 00:00: mouth 2 - Tablet 00 times Externa daily l Oxybutynin 2-0 Yes 1{tbl} Take 1 Aleksey sey Chloride 5 5-04 tablet by Seyb old MG oral 00:00: mouth 2 - Tablet 00 times Externa daily l Oxybutynin 2021-0 Yes 1{tbl} Take 1 Aleksey sey Chloride 5 5-04 tablet by Seyb old MG oral 00:00: mouth 2 - Tablet 00 times Externa daily l Oxybutynin 0 2022- No 5mg Take 1 Lucita ey Chloride 5 5-04 04-26 tablet (5 Sey bold MG oral 00:00: 00:00 mg total) - Tablet 00 :00 by mouth 2 Externa times l daily midazolam No Route: IV, Me moria (ANES) 2 Drug form: l 15:48: SOLN, ONCE, Stop date: 08/15/21 9:48:00 ROLLER HAND lidocaine No Route: IV, Me moria (ANES) 2 Drug form: l 15:48: INJ, ONCE, Stop date: 08/15/21 9:48:00 ROLLER HAND propofol No Route: IV, Mem oria (ANES) 08-15 Drug form: l 15:48: INJ, ONCE Stop date: 08/15/21 9:48:00 ROLLER HAND rocuronium No Route: IV, M emoria (ANES) 08-15 Drug form: l 15:48: INJ, ONCE, Stop date: 08/15/21 9:48:00 ROLLER HAND succinylcho No Route: IV, Memoria line (ANES) 08-15 Drug form: l 15:48: INJ, ONCE, Stop date: 08/15/21 9:48:00 ROLLER HAND fentaNYL No Route: IV, Mem oria (ANES) 08-15 Drug form: l 15:48: INJ, ONCE, Stop date: 08/15/21 9:48:00 ROLLER HAND ondansetron No Route: IV, Memoria (ANES) 2 Drug form: l 15:48: INJ, ONCE, Stop date: 08/15/21 9:48:00 ROLLER HAND dexamethaso No Route: IV, Memoria ne (ANES) 08-15 Drug form: l 15:48: INJ, ONCE, Stop date: 08/15/21 9:48:00 ROLLER HAND cefOXitin No Route: IV, Me moria (ANES) 2- Drug form: l 15:48: INJ, ONCE, Stop date: 08/15/21 9:48:00 ROLLER HAND famotidine No Route: IV, M emoria (ANES) 2- Drug form: l 15:48: INJ, ONCE, Stop date: 08/15/21 9:48:00 ROLLER HAND ePHEDrine No Route: IV, Me moria (ANES) 2- Drug form: l 15:48: INJ, ONCE, Stop date: 08/15/21 9:48:00 ROLLER HAND sugammadex No Route: IV, M emoria (ANES) 2- Drug form: l 15:48: SOLN, ONCE, Stop date: 08/15/21 9:48:00 ROLLER HAND midazolam No Route: IV, Me moria (ANES) 2 Drug form: l 15:48: SOLN, ONCE, Stop date: 08/15/21 9:48:00 ROLLER HAND lidocaine 0 No Route: IV, Me moria (ANES) 08-15 Drug form: l 15:48: INJ, ONCE, Stop date: 08/15/21 9:48:00 ROLLER HAND propofol No Route: IV, Mem oria (ANES) 08-15 Drug form: l 15:48: INJ, ONCE, Stop date: 08/15/21 9:48:00 ROLLER HAND rocuronium No Route: IV, M emoria (ANES) 2- Drug form: l 15:48: INJ, ONCE, Stop date: 08/15/21 9:48:00 ROLLER HAND succinylcho No Route: IV, Memoria line (ANES) 08-15 Drug form: l 15:48: INJ, ONCE, Stop date: 08/15/21 9:48:00 ROLLER HAND fentaNYL No Route: IV, Mem oria (ANES) 2 Drug form: l 15:48: INJ, ONCE, Stop date: 08/15/21 9:48:00 ROLLER HAND ondansetron 0 No Route: IV, Memoria (ANES) 2- Drug form: l 15:48: INJ, ONCE, Stop date: 08/15/21 9:48:00 ROLLER HAND dexamethaso 0 No Route: IV, Memoria ne (ANES) 2- Drug form: l 15:48: INJ, ONCE, Stop date: 08/15/21 9:48:00 ROLLER HAND cefOXitin 0 No Route: IV, Me moria (ANES) 2- Drug form: l 15:48: INJ, ONCE, Stop date: 08/15/21 9:48:00 ROLLER HAND famotidine No Route: IV, M emoria (ANES) 2- Drug form: l 15:48: INJ, ONCE, Stop date: 08/15/21 9:48:00 ROLLER HAND ePHEDrine 0 No Route: IV, Me moria (ANES) 2- Drug form: l 15:48: INJ, ONCE, Stop date: 08/15/21 9:48:00 ROLLER HAND sugammadex 0 No Route: IV, M emoria (ANES) 2- Drug form: l 15:48: SOLN, [place] ONCE, Stop date: 08/15/21 9:48:00 ROLLER HAND midazolam 2021-0 No Route: IV, Me moria (ANES) 2- Drug form: l 15:48: SOLN, [place] ONCE, Stop date: 08/15/21 9:48:00 ROLLER HAND lidocaine 2021-0 No Route: IV, Me moria (ANES) 2- Drug form: l 15:48: INJ, ONCE, Stop date: 08/15/21 9:48:00 ROLLER HAND propofol 2021-0 No Route: IV, Mem oria (ANES) 2- Drug form: l 15:48: INJ, ONCE, Stop date: 08/15/21 9:48:00 ROLLER HAND rocuronium 2021-0 No Route: IV, M emoria (ANES) 2- Drug form: l 15:48: INJ, ONCE, Stop date: 08/15/21 9:48:00 ROLLER HAND succinylcho No Route: IV, Memoria line (ANES) 2- Drug form: l 15:48: INJ, ONCE, Stop date: 08/15/21 9:48:00 ROLLER HAND fentaNYL 2021-0 No Route: IV, Mem oria (ANES) 2 Drug form: l 15:48: INJ, ONCE, Stop date: 08/15/21 9:48:00 ROLLER HAND ondansetron No Route: IV, Memoria (ANES) 2- Drug form: l 15:48: INJ, ONCE, Stop date: 08/15/21 9:48:00 ROLLER HAND dexamethaso No Route: IV, Memoria ne (ANES) 08-15 Drug form: l 15:48: INJ, ONCE, Stop date: 08/15/21 9:48:00 ROLLER HAND cefOXitin No Route: IV, Me moria (ANES) 2- Drug form: l 15:48: INJ, ONCE, Stop date: 08/15/21 9:48:00 ROLLER HAND famotidine No Route: IV, M emoria (ANES) 2- Drug form: l 15:48: INJ, ONCE, Stop date: 08/15/21 9:48:00 ROLLER HAND ePHEDrine 0 No Route: IV, Me moria (ANES) 2- Drug form: l 15:48: INJ, ONCE, Stop date: 08/15/21 9:48:00 ROLLER HAND sugammadex 0 No Route: IV, M emoria (ANES) 2- Drug form: l 15:48: SOLN, [place] ONCE, Stop date: 08/15/21 9:48:00 ROLLER HAND midazolam 2021-0 No Route: IV, Me moria (ANES) 2- Drug form: l 15:48: SOLN, Ran 00 ONCE, Stop date: 08/15/21 9:48:00 ROLLER HAND lidocaine 2021-0 No Route: IV, Me moria (ANES) 2- Drug form: l 15:48: INJ, ONCE, Stop date: 08/15/21 9:48:00 ROLLER HAND propofol 0 No Route: IV, Mem oria (ANES) 2- Drug form: l 15:48: INJ, ONCE, Stop date: 08/15/21 9:48:00 ROLLER HAND rocuronium No Route: IV, M emoria (ANES) 2- Drug form: l 15:48: INJ, ONCE, Stop date: 08/15/21 9:48:00 ROLLER HAND succinylcho No Route: IV, Memoria line (ANES) 08-15 Drug form: l 15:48: INJ, ONCE, Stop date: 08/15/21 9:48:00 ROLLER HAND fentaNYL No Route: IV, Mem oria (ANES) 08-15 Drug form: l 15:48: INJ, ONCE, Stop date: 08/15/21 9:48:00 ROLLER HAND ondansetron No Route: IV, Memoria (ANES) 2 Drug form: l 15:48: INJ, ONCE, Stop date: 08/15/21 9:48:00 ROLLER HAND dexamethaso No Route: IV, Memoria ne (ANES) 08-15 Drug form: l 15:48: INJ, ONCE, Stop date: 08/15/21 9:48:00 ROLLER HAND cefOXitin No Route: IV, Me moria (ANES) 2 Drug form: l 15:48: INJ, ONCE, Stop date: 08/15/21 9:48:00 ROLLER HAND famotidine No Route: IV, M emoria (ANES) 2- Drug form: l 15:48: INJ, ONCE, Stop date: 08/15/21 9:48:00 ROLLER HAND ePHEDrine No Route: IV, Me moria (ANES) 2- Drug form: l 15:48: INJ, ONCE, Stop date: 08/15/21 9:48:00 ROLLER HAND sugammadex No Route: IV, M emoria (ANES) 2- Drug form: l 15:48: SOLN, [place] 00 ONCE, Stop date: 08/15/21 9:48:00 ROLLER HAND midazolam 2021-0 No Route: IV, Me moria (ANES) 08-15 Drug form: l 15:48: SOLN, [place] 00 ONCE, Stop date: 08/15/21 9:48:00 ROLLER HAND lidocaine 2021-0 No Route: IV, Me moria (ANES) 08-15 Drug form: l 15:48: INJ, ONCE, Stop date: 08/15/21 9:48:00 ROLLER HAND propofol 2021-0 No Route: IV, Mem oria (ANES) 08-15 Drug form: l 15:48: INJ, ONCE, Stop date: 08/15/21 9:48:00 ROLLER HAND rocuronium 0 No Route: IV, M emoria (ANES) 08-15 Drug form: l 15:48: INJ, ONCE, Stop date: 08/15/21 9:48:00 ROLLER HAND succinylcho 0 No Route: IV, Memoria line (ANES) 08-15 Drug form: l 15:48: INJ, ONCE, Stop date: 08/15/21 9:48:00 ROLLER HAND fentaNYL 2021-0 No Route: IV, Mem oria (ANES) 08-15 Drug form: l 15:48: INJ, ONCE, Stop date: 08/15/21 9:48:00 ROLLER HAND ondansetron No Route: IV, Memoria (ANES) 08-15 Drug form: l 15:48: INJ, ONCE, Stop date: 08/15/21 9:48:00 ROLLER HAND dexamethaso No Route: IV, Memoria ne (ANES) 08-15 Drug form: l 15:48: INJ, ONCE, Stop date: 08/15/21 9:48:00 ROLLER HAND cefOXitin 0 No Route: IV, Me moria (ANES) 08-15 Drug form: l 15:48: INJ, ONCE, Stop date: 08/15/21 9:48:00 ROLLER HAND famotidine 0 No Route: IV, M emoria (ANES) 2- Drug form: l 15:48: INJ, ONCE, Stop date: 08/15/21 9:48:00 ROLLER HAND ePHEDrine 2021-0 No Route: IV, moria (ANES) 2- Drug form: l 15:48: INJ, ONCE, Stop date: 08/15/21 9:48:00 ROLLER HAND sugammadex 2021-0 No Route: IV, G[place] emoria (ANES) 08-15 Drug form: l 15:48: SOLN, [place] ONCE, Stop date: 08/15/21 9:48:00 ROLLER HAND midazolam 2021-0 No Route: IV, Me moria (ANES) 2- Drug form: l 15:48: SOLN, [place] 00 ONCE, Stop date: 08/15/21 9:48:00 ROLLER HAND lidocaine 2021-0 No Route: IV, moria (ANES) 08-15 Drug form: l 15:48: INJ, ONCE, Stop date: 08/15/21 9:48:00 ROLLER HAND propofol 2021-0 No Route: IV, Mem oria (ANES) 08-15 Drug form: l 15:48: INJ, ONCE, Stop date: 08/15/21 9:48:00 ROLLER HAND rocuronium 0 No Route: IV, Giana emoria (ANES) 08-15 Drug form: l 15:48: INJ, ONCE, Stop date: 08/15/21 9:48:00 ROLLER HAND succinylcho 2021-0 No Route: IV, Memoria line (ANES) 08-15 Drug form: l 15:48: INJ, ONCE, Stop date: 08/15/21 9:48:00 ROLLER HAND fentaNYL 2021-0 No Route: IV, Mem oria (ANES) 2- Drug form: l 15:48: INJ, ONCE, Stop date: 08/15/21 9:48:00 ROLLER HAND ondansetron 0 No Route: IV, Memoria (ANES) 2- Drug form: l 15:48: INJ, ONCE, Stop date: 08/15/21 9:48:00 ROLLER HAND dexamethaso 2022-0 No Route: IV, Memoria ne (ANES) 08-15 Drug form: l 15:48: INJ, ONCE, Stop date: 08/15/21 9:48:00 ROLLER HAND cefOXitin 0 No Route: IV, Me moria (ANES) 2 Drug form: l 15:48: INJ, ONCE, Stop date: 08/15/21 9:48:00 ROLLER HAND famotidine 0 No Route: IV, M emoria (ANES) 08-15 Drug form: l 15:48: INJ, ONCE, Stop date: 08/15/21 9:48:00 ROLLER HAND ePHEDrine 0 No Route: IV, Me moria (ANES) 2 Drug form: l 15:48: INJ, ONCE, Stop date: 08/15/21 9:48:00 ROLLER HAND sugammadex 0 No Route: IV, M emoria (ANES) 08-15 Drug form: l 15:48: SOLN, [place] 00 ONCE, Stop date: 08/15/21 9:48:00 ROLLER HAND midazolam 2021-0 No Route: IV, Me moria (ANES) 08-15 Drug form: l 15:48: SOLN, [place] 00 ONCE, Stop date: 08/15/21 9:48:00 ROLLER HAND lidocaine 2021-0 No Route: IV, Me moria (ANES) 08-15 Drug form: l 15:48: INJ, ONCE, Stop date: 08/15/21 9:48:00 ROLLER HAND propofol 2021-0 No Route: IV, Mem oria (ANES) 08-15 Drug form: l 15:48: INJ, ONCE, Stop date: 08/15/21 9:48:00 ROLLER HAND rocuronium 0 No Route: IV, M emoria (ANES) 2- Drug form: l 15:48: INJ, ONCE, Stop date: 08/15/21 9:48:00 ROLLER HAND succinylcho 2021-0 No Route: IV, Memoria line (ANES) 08-15 Drug form: l 15:48: INJ, ONCE, Stop date: 08/15/21 9:48:00 ROLLER HAND fentaNYL 2021-0 No Route: IV, Mem oria (ANES) 2- Drug form: l 15:48: INJ, ONCE, Stop date: 08/15/21 9:48:00 ROLLER HAND ondansetron 0 No Route: IV, Memoria (ANES) 2- Drug form: l 15:48: INJ, ONCE, Stop date: 08/15/21 9:48:00 ROLLER HAND dexamethaso No Route: IV, Memoria ne (ANES) 2 Drug form: l 15:48: INJ, ONCE, Stop date: 08/15/21 9:48:00 ROLLER HAND cefOXitin 0 No Route: IV, Me moria (ANES) 2- Drug form: l 15:48: INJ, ONCE, Stop date: 08/15/21 9:48:00 ROLLER HAND famotidine No Route: IV, M emoria (ANES) 2- Drug form: l 15:48: INJ, ONCE, Stop date: 08/15/21 9:48:00 ROLLER HAND ePHEDrine 0 No Route: IV, Me moria (ANES) 2- Drug form: l 15:48: INJ, ONCE, Stop date: 08/15/21 9:48:00 ROLLER HAND sugammadex 0 No Route: IV, M emoria (ANES) 2- Drug form: l 15:48: SOLN, [place] 00 ONCE, Stop date: 08/15/21 9:48:00 ROLLER HAND midazolam 2021-0 No Route: IV, Me moria (ANES) 2- Drug form: l 15:48: SOLN, [place] 00 ONCE, Stop date: 08/15/21 9:48:00 ROLLER HAND lidocaine 2021-0 No Route: IV, Me moria (ANES) 2- Drug form: l 15:48: INJ, ONCE, Stop date: 08/15/21 9:48:00 ROLLER HAND propofol 2021-0 No Route: IV, Mem oria (ANES) 2- Drug form: l 15:48: INJ, ONCE, Stop date: 08/15/21 9:48:00 ROLLER HAND rocuronium 2021-0 No Route: IV, M emoria (ANES) 2- Drug form: l 15:48: INJ, ONCE, Stop date: 08/15/21 9:48:00 ROLLER HAND succinylcho 2021-0 No Route: IV, Memoria line (ANES) 08-15 Drug form: l 15:48: INJ, ONCE, Stop date: 08/15/21 9:48:00 ROLLER HAND fentaNYL 2021-0 No Route: IV, Mem oria (ANES) 08-15 Drug form: l 15:48: INJ, ONCE, Stop date: 08/15/21 9:48:00 ROLLER HAND ondansetron 0 No Route: IV, Memoria (ANES) 2- Drug form: l 15:48: INJ, ONCE, Stop date: 08/15/21 9:48:00 ROLLER HAND dexamethaso No Route: IV, Memoria ne (ANES) 08-15 Drug form: l 15:48: INJ, ONCE, Stop date: 08/15/21 9:48:00 ROLLER HAND cefOXitin 0 No Route: IV, Me moria (ANES) 2- Drug form: l 15:48: INJ, ONCE, Stop date: 08/15/21 9:48:00 ROLLER HAND famotidine 0 No Route: IV, M emoria (ANES) 2- Drug form: l 15:48: INJ, ONCE, Stop date: 08/15/21 9:48:00 ROLLER HAND ePHEDrine 2021-0 No Route: IV, Me moria (ANES) 2- Drug form: l 15:48: INJ, ONCE, Stop date: 08/15/21 9:48:00 ROLLER HAND sugammadex 2021-0 No Route: IV, M emoria (ANES) 2- Drug form: l 15:48: SOLN, [place] 00 ONCE, Stop date: 08/15/21 9:48:00 ROLLER HAND midazolam 2021-0 No Route: IV, Me moria (ANES) 2- Drug form: l 15:48: SOLN, [place] 00 ONCE, Stop date: 08/15/21 9:48:00 ROLLER HAND lidocaine 2021-0 No Route: IV, Me moria (ANES) 2- Drug form: l 15:48: INJ, ONCE, Stop date: 08/15/21 9:48:00 ROLLER HAND propofol 2021-0 No Route: IV, Mem oria (ANES) 2- Drug form: l 15:48: INJ, ONCE, Stop date: 08/15/21 9:48:00 ROLLER HAND rocuronium 0 No Route: IV, M emoria (ANES) 2- Drug form: l 15:48: INJ, ONCE, Stop date: 08/15/21 9:48:00 ROLLER HAND succinylcho No Route: IV, Memoria line (ANES) 08-15 Drug form: l 15:48: INJ, ONCE, Stop date: 08/15/21 9:48:00 ROLLER HAND fentaNYL 2021-0 No Route: IV, Mem oria (ANES) 2- Drug form: l 15:48: INJ, ONCE, Stop date: 08/15/21 9:48:00 ROLLER HAND ondansetron No Route: IV, Memoria (ANES) 2- Drug form: l 15:48: INJ, ONCE, Stop date: 08/15/21 9:48:00 ROLLER HAND dexamethaso No Route: IV, Memoria ne (ANES) 08-15 Drug form: l 15:48: INJ, ONCE, Stop date: 08/15/21 9:48:00 ROLLER HAND cefOXitin 0 No Route: IV, Me moria (ANES) 2- Drug form: l 15:48: INJ, ONCE, Stop date: 08/15/21 9:48:00 ROLLER HAND famotidine 0 No Route: IV, M emoria (ANES) 2- Drug form: l 15:48: INJ, ONCE, Stop date: 08/15/21 9:48:00 ROLLER HAND ePHEDrine 0 No Route: IV, Me moria (ANES) 2- Drug form: l 15:48: INJ, ONCE, Stop date: 08/15/21 9:48:00 ROLLER HAND sugammadex 0 No Route: IV, M emoria (ANES) 2 Drug form: l 15:48: SOLN, [place] ONCE, Stop date: 08/15/21 9:48:00 ROLLER HAND midazolam 2021-0 No Route: IV, Me moria (ANES) 2 Drug form: l 15:48: SOLN, [place] 00 ONCE, Stop date: 08/15/21 9:48:00 ROLLER HAND lidocaine 2021-0 No Route: IV, Me moria (ANES) 2 Drug form: l 15:48: INJ, ONCE, Stop date: 08/15/21 9:48:00 ROLLER HAND propofol 0 No Route: IV, Mem oria (ANES) 08-15 Drug form: l 15:48: INJ, ONCE, Stop date: 08/15/21 9:48:00 ROLLER HAND rocuronium No Route: IV, M emoria (ANES) 08-15 Drug form: l 15:48: INJ, ONCE, Stop date: 08/15/21 9:48:00 ROLLER HAND succinylcho No Route: IV, Memoria line (ANES) 08-15 Drug form: l 15:48: INJ, ONCE, Stop date: 08/15/21 9:48:00 ROLLER HAND fentaNYL 0 No Route: IV, Mem oria (ANES) 08-15 Drug form: l 15:48: INJ, ONCE, Stop date: 08/15/21 9:48:00 ROLLER HAND ondansetron No Route: IV, Memoria (ANES) 2 Drug form: l 15:48: INJ, ONCE, Stop date: 08/15/21 9:48:00 ROLLER HAND dexamethaso No Route: IV, Memoria ne (ANES) 08-15 Drug form: l 15:48: INJ, ONCE, Stop date: 08/15/21 9:48:00 ROLLER HAND cefOXitin No Route: IV, Me moria (ANES) 2 Drug form: l 15:48: INJ, ONCE, Stop date: 08/15/21 9:48:00 ROLLER HAND famotidine No Route: IV, M emoria (ANES) 2- Drug form: l 15:48: INJ, ONCE, Stop date: 08/15/21 9:48:00 ROLLER HAND ePHEDrine No Route: IV, Me moria (ANES) 2 Drug form: l 15:48: INJ, ONCE, Stop date: 08/15/21 9:48:00 ROLLER HAND sugammadex No Route: IV, M emoria (ANES) 2 Drug form: l 15:48: SOLN, ONCE, Stop date: 08/15/21 9:48:00 ROLLER HAND midazolam 0 No Route: IV, Me moria (ANES) 08-15 Drug form: l 15:48: SOLN, ONCE, Stop date: 08/15/21 9:48:00 ROLLER HAND lidocaine 2021-0 No Route: IV, Me moria (ANES) 08-15 Drug form: l 15:48: INJ, ONCE, Stop date: 08/15/21 9:48:00 ROLLER HAND propofol 0 No Route: IV, Mem oria (ANES) 08-15 Drug form: l 15:48: INJ, ONCE, Stop date: 08/15/21 9:48:00 ROLLER HAND rocuronium No Route: IV, M emoria (ANES) 08-15 Drug form: l 15:48: INJ, ONCE, Stop date: 08/15/21 9:48:00 ROLLER HAND succinylcho No Route: IV, Memoria line (ANES) 08-15 Drug form: l 15:48: INJ, ONCE, Stop date: 08/15/21 9:48:00 ROLLER HAND fentaNYL 2021-0 No Route: IV, Mem oria (ANES) 2 Drug form: l 15:48: INJ, ONCE, Stop date: 08/15/21 9:48:00 ROLLER HAND ondansetron 2022-0 No Route: IV, Memoria (ANES) 2- Drug form: l 15:48: INJ, ONCE, Stop date: 08/15/21 9:48:00 ROLLER HAND dexamethaso No Route: IV, Memoria ne (ANES) 08-15 Drug form: l 15:48: INJ, ONCE, Stop date: 08/15/21 9:48:00 ROLLER HAND cefOXitin 0 No Route: IV, Me moria (ANES) 2 Drug form: l 15:48: INJ, ONCE, Stop date: 08/15/21 9:48:00 ROLLER HAND famotidine No Route: IV, M emoria (ANES) 2 Drug form: l 15:48: INJ, ONCE, Stop date: 08/15/21 9:48:00 ROLLER HAND ePHEDrine No Route: IV, Me moria (ANES) 2 Drug form: l 15:48: INJ, ONCE, Stop date: 08/15/21 9:48:00 ROLLER HAND sugammadex 0 No Route: IV, M emoria (ANES) 08-15 Drug form: l 15:48: SOLN, [place] 00 ONCE, Stop date: 08/15/21 9:48:00 ROLLER HAND midazolam 0 No Route: IV, Me moria (ANES) 2 Drug form: l 15:48: SOLN, [place] 00 ONCE, Stop date: 08/15/21 9:48:00 ROLLER HAND lidocaine 2021-0 No Route: IV, Me moria (ANES) 2 Drug form: l 15:48: INJ, ONCE, Stop date: 08/15/21 9:48:00 ROLLER HAND propofol 2021-0 No Route: IV, Mem oria (ANES) 2 Drug form: l 15:48: INJ, ONCE, Stop date: 08/15/21 9:48:00 ROLLER HAND rocuronium 0 No Route: IV, M emoria (ANES) 2 Drug form: l 15:48: INJ, ONCE, Stop date: 08/15/21 9:48:00 ROLLER HAND succinylcho 0 No Route: IV, Memoria line (ANES) 2- Drug form: l 15:48: INJ, ONCE, Stop date: 08/15/21 9:48:00 ROLLER HAND fentaNYL 2021-0 No Route: IV, Mem oria (ANES) 2- Drug form: l 15:48: INJ, ONCE, Stop date: 08/15/21 9:48:00 ROLLER HAND ondansetron 0 No Route: IV, Memoria (ANES) 2- Drug form: l 15:48: INJ, ONCE, Stop date: 08/15/21 9:48:00 ROLLER HAND dexamethaso No Route: IV, Memoria ne (ANES) 2- Drug form: l 15:48: INJ, ONCE, Stop date: 08/15/21 9:48:00 ROLLER HAND cefOXitin No Route: IV, Me moria (ANES) 2- Drug form: l 15:48: INJ, ONCE, Stop date: 08/15/21 9:48:00 ROLLER HAND famotidine No Route: IV, M emoria (ANES) 2- Drug form: l 15:48: INJ, ONCE, Stop date: 08/15/21 9:48:00 ROLLER HAND ePHEDrine 0 No Route: IV, Me moria (ANES) 2- Drug form: l 15:48: INJ, ONCE, Stop date: 08/15/21 9:48:00 ROLLER HAND sugammadex 0 No Route: IV, M emoria (ANES) 2- Drug form: l 15:48: SOLN, [place] 00 ONCE, Stop date: 08/15/21 9:48:00 ROLLER HAND midazolam 2021-0 No Route: IV, Me moria (ANES) 2- Drug form: l 15:48: SOLN, [place] 00 ONCE, Stop date: 08/15/21 9:48:00 ROLLER HAND lidocaine 2021-0 No Route: IV, Me moria (ANES) 2- Drug form: l 15:48: INJ, ONCE, Stop date: 08/15/21 9:48:00 ROLLER HAND propofol 2021-0 No Route: IV, Mem oria (ANES) 2- Drug form: l 15:48: INJ, ONCE, Stop date: 08/15/21 9:48:00 ROLLER HAND rocuronium No Route: IV, M emoria (ANES) 2- Drug form: l 15:48: INJ, ONCE, Stop date: 08/15/21 9:48:00 ROLLER HAND succinylcho No Route: IV, Memoria line (ANES) 08-15 Drug form: l 15:48: INJ, ONCE, Stop date: 08/15/21 9:48:00 ROLLER HAND fentaNYL No Route: IV, Mem oria (ANES) - Drug form: l 15:48: INJ, ONCE, Stop date: 08/15/21 9:48:00 ROLLER HAND ondansetron No Route: IV, Memoria (ANES) 2- Drug form: l 15:48: INJ, ONCE, Stop date: 08/15/21 9:48:00 ROLLER HAND dexamethaso No Route: IV, Memoria ne (ANES) 08-15 Drug form: l 15:48: INJ, ONCE, Stop date: 08/15/21 9:48:00 ROLLER HAND cefOXitin No Route: IV, Me moria (ANES) 2 Drug form: l 15:48: INJ, ONCE, Stop date: 08/15/21 9:48:00 ROLLER HAND famotidine No Route: IV, M emoria (ANES) 2- Drug form: l 15:48: INJ, ONCE, Stop date: 08/15/21 9:48:00 ROLLER HAND ePHEDrine No Route: IV, Me moria (ANES) 2- Drug form: l 15:48: INJ, ONCE, Stop date: 08/15/21 9:48:00 ROLLER HAND sugammadex No Route: IV, M emoria (ANES) 2- Drug form: l 15:48: SOLN, ONCE, Stop date: 08/15/21 9:48:00 ROLLER HAND midazolam 2021-0 No Route: IV, Me moria (ANES) 2- Drug form: l 15:48: SOLN, ONCE, Stop date: 08/15/21 9:48:00 ROLLER HAND lidocaine 2021-0 No Route: IV, Me moria (ANES) 2- Drug form: l 15:48: INJ, ONCE, Stop date: 08/15/21 9:48:00 ROLLER HAND propofol 2021-0 No Route: IV, Mem oria (ANES) 2 Drug form: l 15:48: INJ, ONCE, Stop date: 08/15/21 9:48:00 ROLLER HAND rocuronium 0 No Route: IV, M emoria (ANES) 2- Drug form: l 15:48: INJ, ONCE, Stop date: 08/15/21 9:48:00 ROLLER HAND succinylcho No Route: IV, Memoria line (ANES) 08-15 Drug form: l 15:48: INJ, ONCE, Stop date: 08/15/21 9:48:00 ROLLER HAND fentaNYL 2021-0 No Route: IV, Mem oria (ANES) 2- Drug form: l 15:48: INJ, ONCE, Stop date: 08/15/21 9:48:00 ROLLER HAND ondansetron No Route: IV, Memoria (ANES) 2- Drug form: l 15:48: INJ, ONCE, Stop date: 08/15/21 9:48:00 ROLLER HAND dexamethaso No Route: IV, Memoria ne (ANES) 2 Drug form: l 15:48: INJ, ONCE, Stop date: 08/15/21 9:48:00 ROLLER HAND cefOXitin 0 No Route: IV, Me moria (ANES) 2- Drug form: l 15:48: INJ, ONCE, Stop date: 08/15/21 9:48:00 ROLLER HAND famotidine No Route: IV, M emoria (ANES) 2- Drug form: l 15:48: INJ, ONCE, Stop date: 08/15/21 9:48:00 ROLLER HAND ePHEDrine 0 No Route: IV, Me moria (ANES) 2- Drug form: l 15:48: INJ, ONCE, Stop date: 08/15/21 9:48:00 ROLLER HAND sugammadex No Route: IV, M emoria (ANES) 2 Drug form: l 15:48: SOLN, [place] ONCE, Stop date: 08/15/21 9:48:00 ROLLER HAND midazolam 0 No Route: IV, Me moria (ANES) 2 Drug form: l 15:48: SOLN, [place] 00 ONCE, Stop date: 08/15/21 9:48:00 ROLLER HAND lidocaine 0 No Route: IV, Me moria (ANES) 08-15 Drug form: l 15:48: INJ, ONCE, Stop date: 08/15/21 9:48:00 ROLLER HAND propofol 0 No Route: IV, Mem oria (ANES) 08-15 Drug form: l 15:48: INJ, ONCE, Stop date: 08/15/21 9:48:00 ROLLER HAND rocuronium No Route: IV, M emoria (ANES) 08-15 Drug form: l 15:48: INJ, ONCE, Stop date: 08/15/21 9:48:00 ROLLER HAND succinylcho No Route: IV, Memoria line (ANES) 08-15 Drug form: l 15:48: INJ, ONCE, Stop date: 08/15/21 9:48:00 ROLLER HAND fentaNYL 0 No Route: IV, Mem oria (ANES) 2 Drug form: l 15:48: INJ, ONCE, Stop date: 08/15/21 9:48:00 ROLLER HAND ondansetron No Route: IV, Memoria (ANES) 2 Drug form: l 15:48: INJ, ONCE, Stop date: 08/15/21 9:48:00 ROLLER HAND dexamethaso No Route: IV, Memoria ne (ANES) 2 Drug form: l 15:48: INJ, ONCE, Stop date: 08/15/21 9:48:00 ROLLER HAND cefOXitin 2021-0 No Route: IV, Me moria (ANES) 2- Drug form: l 15:48: INJ, ONCE, Stop date: 08/15/21 9:48:00 ROLLER HAND famotidine 0 No Route: IV, M emoria (ANES) 08-15 Drug form: l 15:48: INJ, ONCE, Stop date: 08/15/21 9:48:00 ROLLER HAND ePHEDrine No Route: IV, Me moria (ANES) 2 Drug form: l 15:48: INJ, ONCE, Stop date: 08/15/21 9:48:00 ROLLER HAND sugammadex 0 No Route: IV, M emoria (ANES) 08-15 Drug form: l 15:48: SOLN, [place] 00 ONCE, Stop date: 08/15/21 9:48:00 ROLL[employer] HAND midazolam 2021-0 No Route: IV, Me moria (ANES) 08-15 Drug form: l 15:48: SOLN, [place] 00 ONCE, Stop date: 08/15/21 9:48:00 ROLL[employer] HAND lidocaine 2021-0 No Route: IV, Me moria (ANES) 08-15 Drug form: l 15:48: INJ, ONCE, Stop date: 08/15/21 9:48:00 ROLL[employer] HAND propofol 2021-0 No Route: IV, Mem oria (ANES) 08-15 Drug form: l 15:48: INJ, ONCE, Stop date: 08/15/21 9:48:00 ROLL[employer] HAND rocuronium 2021-0 No Route: IV, M emoria (ANES) 2- Drug form: l 15:48: INJ, ONCE, Stop date: 08/15/21 9:48:00 ROLLER HAND succinylcho 0 No Route: IV, Memoria line (ANES) 08-15 Drug form: l 15:48: INJ, ONCE, Stop date: 08/15/21 9:48:00 ROLLER HAND fentaNYL 2021-0 No Route: IV, Mem oria (ANES) 2- Drug form: l 15:48: INJ, ONCE, Stop date: 08/15/21 9:48:00 ROLL[employer] HAND ondansetron No Route: IV, Memoria (ANES) 2- Drug form: l 15:48: INJ, ONCE, Stop date: 08/15/21 9:48:00 ROLLER HAND dexamethaso No Route: IV, Memoria ne (ANES) 08-15 Drug form: l 15:48: INJ, ONCE, Stop date: 08/15/21 9:48:00 ROLLER HAND cefOXitin No Route: IV, Me moria (ANES) 2- Drug form: l 15:48: INJ, ONCE, Stop date: 08/15/21 9:48:00 ROLLER HAND famotidine No Route: IV, M emoria (ANES) 2- Drug form: l 15:48: INJ, ONCE, Stop date: 08/15/21 9:48:00 ROLLER HAND ePHEDrine No Route: IV, Me moria (ANES) 2- Drug form: l 15:48: INJ, ONCE, Stop date: 08/15/21 9:48:00 ROLLER HAND sugammadex No Route: IV, M emoria (ANES) 2- Drug form: l 15:48: SOLN, [place] 00 ONCE, Stop date: 08/15/21 9:48:00 ROLL[employer] HAND midazolam 2021-0 No Route: IV, Me moria (ANES) 2- Drug form: l 15:48: SOLN, [place] 00 ONCE, Stop date: 08/15/21 9:48:00 ROLL[employer] HAND lidocaine 2021-0 No Route: IV, Me moria (ANES) 2- Drug form: l 15:48: INJ, ONCE, Stop date: 08/15/21 9:48:00 ROLLER HAND propofol 2021-0 No Route: IV, Mem oria (ANES) 2- Drug form: l 15:48: INJ, ONCE, Stop date: 08/15/21 9:48:00 ROLLER HAND rocuronium 0 No Route: IV, M emoria (ANES) 2- Drug form: l 15:48: INJ, ONCE, Stop date: 08/15/21 9:48:00 ROLLER HAND succinylcho 0 No Route: IV, Memoria line (ANES) 08-15 Drug form: l 15:48: INJ, ONCE, Stop date: 08/15/21 9:48:00 ROLLER HAND fentaNYL 2021-0 No Route: IV, Mem oria (ANES) 08-15 Drug form: l 15:48: INJ, ONCE, Stop date: 08/15/21 9:48:00 ROLLER HAND ondansetron No Route: IV, Memoria (ANES) 2- Drug form: l 15:48: INJ, ONCE, Stop date: 08/15/21 9:48:00 ROLLER HAND dexamethaso No Route: IV, Memoria ne (ANES) 08-15 Drug form: l 15:48: INJ, ONCE, Stop date: 08/15/21 9:48:00 ROLL[employer] HAND cefOXitin 0 No Route: IV, Me moria (ANES) 2 Drug form: l 15:48: INJ, ONCE, Stop date: 08/15/21 9:48:00 ROLLER HAND famotidine No Route: IV, M emoria (ANES) 2- Drug form: l 15:48: INJ, ONCE, Stop date: 08/15/21 9:48:00 ROLLER HAND ePHEDrine 0 No Route: IV, Me moria (ANES) 2 Drug form: l 15:48: INJ, ONCE, Stop date: 08/15/21 9:48:00 ROLLER HAND sugammadex 0 No Route: IV, M emoria (ANES) 2- Drug form: l 15:48: SOLN, [place] , Stop date: 08/15/21 9:48:00 ROLL[employer] HAND midazolam 2021-0 No Route: IV, Me moria (ANES) 2- Drug form: l 15:48: SOLN, ONCE, Stop date: 08/15/21 9:48:00 ROLLER HAND lidocaine 2021-0 No Route: IV, Me moria (ANES) 2- Drug form: l 15:48: INJ, ONCE, Stop date: 08/15/21 9:48:00 ROLLER HAND propofol 2021-0 No Route: IV, Mem oria (ANES) 2- Drug form: l 15:48: INJ, ONCE, Stop date: 08/15/21 9:48:00 ROLLER HAND rocuronium 0 No Route: IV, M emoria (ANES) 08-15 Drug form: l 15:48: INJ, ONCE, Stop date: 08/15/21 9:48:00 ROLLER HAND succinylcho No Route: IV, Memoria line (ANES) 08-15 Drug form: l 15:48: INJ, ONCE, Stop date: 08/15/21 9:48:00 ROLLER HAND fentaNYL 2021-0 No Route: IV, Mem oria (ANES) 08-15 Drug form: l 15:48: INJ, ONCE, Stop date: 08/15/21 9:48:00 ROLLER HAND ondansetron No Route: IV, Memoria (ANES) 2 Drug form: l 15:48: INJ, ONCE, Stop date: 08/15/21 9:48:00 ROLLER HAND dexamethaso No Route: IV, Memoria ne (ANES) 08-15 Drug form: l 15:48: INJ, ONCE, Stop date: 08/15/21 9:48:00 ROLLER HAND cefOXitin 0 No Route: IV, Me moria (ANES) 2- Drug form: l 15:48: INJ, ONCE, Stop date: 08/15/21 9:48:00 ROLLER HAND famotidine 0 No Route: IV, M emoria (ANES) 2- Drug form: l 15:48: INJ, ONCE, Stop date: 08/15/21 9:48:00 ROLLER HAND ePHEDrine No Route: IV, Me moria (ANES) 2- Drug form: l 15:48: INJ, ONCE, Stop date: 08/15/21 9:48:00 ROLLER HAND sugammadex 0 No Route: IV, M emoria (ANES) 2- Drug form: l 15:48: SOLN, ONCE, Stop date: 08/15/21 9:48:00 ROLLER HAND midazolam 2021-0 No Route: IV, Me moria (ANES) 2 Drug form: l 15:48: SOLN, ONCE, Stop date: 08/15/21 9:48:00 ROLLER HAND lidocaine 2021-0 No Route: IV, Me moria (ANES) 2 Drug form: l 15:48: INJ, ONCE, Stop date: 08/15/21 9:48:00 ROLLER HAND propofol 2021-0 No Route: IV, Mem oria (ANES) 08-15 Drug form: l 15:48: INJ, ONCE, Stop date: 08/15/21 9:48:00 ROLLER HAND rocuronium 0 No Route: IV, M emoria (ANES) 2 Drug form: l 15:48: INJ, ONCE, Stop date: 08/15/21 9:48:00 ROLLER HAND succinylcho 0 No Route: IV, Memoria line (ANES) 08-15 Drug form: l 15:48: INJ, ONCE, Stop date: 08/15/21 9:48:00 ROLLER HAND fentaNYL 2021-0 No Route: IV, Mem oria (ANES) 2 Drug form: l 15:48: INJ, ONCE, Stop date: 08/15/21 9:48:00 ROLLER HAND ondansetron 0 No Route: IV, Memoria (ANES) 2- Drug form: l 15:48: INJ, ONCE, Stop date: 08/15/21 9:48:00 ROLLER HAND dexamethaso 0 No Route: IV, Memoria ne (ANES) 2- Drug form: l 15:48: INJ, ONCE, Stop date: 08/15/21 9:48:00 ROLLER HAND cefOXitin 0 No Route: IV, Me moria (ANES) 2- Drug form: l 15:48: INJ, ONCE, Stop date: 08/15/21 9:48:00 ROLLER HAND famotidine No Route: IV, M emoria (ANES) - Drug form: l 15:48: INJ, ONCE, Stop date: 08/15/21 9:48:00 ROLLER HAND ePHEDrine No Route: IV, Me moria (ANES) 2 Drug form: l 15:48: INJ, ONCE, Stop date: 08/15/21 9:48:00 ROLLER HAND sugammadex No Route: IV, M emoria (ANES) 08-15 Drug form: l 15:48: SOLN, ONCE, Stop date: 08/15/21 9:48:00 ROLLER HAND midazolam No Route: IV, Me moria (ANES) 08-15 Drug form: l 15:48: SOLN, ONCE, Stop date: 08/15/21 9:48:00 ROLLER HAND lidocaine 0 No Route: IV, Me moria (ANES) 08-15 Drug form: l 15:48: INJ, ONCE, Stop date: 08/15/21 9:48:00 ROLLER HAND propofol 0 No Route: IV, Mem oria (ANES) 08-15 Drug form: l 15:48: INJ, ONCE, Stop date: 08/15/21 9:48:00 ROLLER HAND rocuronium No Route: IV, M emoria (ANES) 2 Drug form: l 15:48: INJ, ONCE, Stop date: 08/15/21 9:48:00 ROLLER HAND succinylcho No Route: IV, Memoria line (ANES) 08-15 Drug form: l 15:48: INJ, ONCE, Stop date: 08/15/21 9:48:00 ROLLER HAND fentaNYL 2021-0 No Route: IV, Mem oria (ANES) 2- Drug form: l 15:48: INJ, ONCE, Stop date: 08/15/21 9:48:00 ROLLER HAND ondansetron No Route: IV, Memoria (ANES) 2- Drug form: l 15:48: INJ, ONCE, Stop date: 08/15/21 9:48:00 ROLLER HAND dexamethaso No Route: IV, Memoria ne (ANES) - Drug form: l 15:48: INJ, ONCE, Stop date: 08/15/21 9:48:00 ROLLER HAND cefOXitin 0 No Route: IV, Me moria (ANES) 2 Drug form: l 15:48: INJ, ONCE, Stop date: 08/15/21 9:48:00 ROLLER HAND famotidine No Route: IV, M emoria (ANES) 2- Drug form: l 15:48: INJ, ONCE, Stop date: 08/15/21 9:48:00 ROLLER HAND ePHEDrine No Route: IV, Me moria (ANES) 08-15 Drug form: l 15:48: INJ, ONCE, Stop date: 08/15/21 9:48:00 ROLLER HAND sugammadex 0 No Route: IV, M emoria (ANES) 08-15 Drug form: l 15:48: SOLN, [place] 00 ONCE, Stop date: 08/15/21 9:48:00 ROLLER HAND midazolam 2021-0 No Route: IV, Me moria (ANES) 2- Drug form: l 15:48: SOLN, [place] 00 ONCE, Stop date: 08/15/21 9:48:00 ROLLER HAND lidocaine 2021-0 No Route: IV, Me moria (ANES) 2- Drug form: l 15:48: INJ, ONCE, Stop date: 08/15/21 9:48:00 ROLLER HAND propofol 2021-0 No Route: IV, Mem oria (ANES) 2 Drug form: l 15:48: INJ, ONCE, Stop date: 08/15/21 9:48:00 ROLLER HAND rocuronium 2021-0 No Route: IV, M emoria (ANES) 2- Drug form: l 15:48: INJ, ONCE, Stop date: 08/15/21 9:48:00 ROLLER HAND succinylcho 2021-0 No Route: IV, Memoria line (ANES) 2- Drug form: l 15:48: INJ, ONCE, Stop date: 08/15/21 9:48:00 ROLLER HAND fentaNYL 2021-0 No Route: IV, Mem oria (ANES) 2- Drug form: l 15:48: INJ, ONCE, Stop date: 08/15/21 9:48:00 ROLLER HAND ondansetron No Route: IV, Memoria (ANES) 2- Drug form: l 15:48: INJ, ONCE, Stop date: 08/15/21 9:48:00 ROLLER HAND dexamethaso No Route: IV, Memoria ne (ANES) 2 Drug form: l 15:48: INJ, ONCE, Stop date: 08/15/21 9:48:00 ROLLER HAND cefOXitin No Route: IV, Me moria (ANES) 2 Drug form: l 15:48: INJ, ONCE, Stop date: 08/15/21 9:48:00 ROLLER HAND famotidine No Route: IV, M emoria (ANES) 2- Drug form: l 15:48: INJ, ONCE, Stop date: 08/15/21 9:48:00 ROLLER HAND ePHEDrine 0 No Route: IV, Me moria (ANES) 2- Drug form: l 15:48: INJ, ONCE, Stop date: 08/15/21 9:48:00 ROLLER HAND sugammadex 0 No Route: IV, M emoria (ANES) 2- Drug form: l 15:48: SOLN, [place] 00 ONCE, Stop date: 08/15/21 9:48:00 ROLLER HAND midazolam 2021-0 No Route: IV, Me moria (ANES) 2- Drug form: l 15:48: SOLN, [place] 00 ONCE, Stop date: 08/15/21 9:48:00 ROLLER HAND lidocaine 2021-0 No Route: IV, Me moria (ANES) 2- Drug form: l 15:48: INJ, ONCE, Stop date: 08/15/21 9:48:00 ROLLER HAND propofol 2021-0 No Route: IV, Mem oria (ANES) 2- Drug form: l 15:48: INJ, ONCE, Stop date: 08/15/21 9:48:00 ROLLER HAND rocuronium 0 No Route: IV, M emoria (ANES) 2- Drug form: l 15:48: INJ, ONCE, Stop date: 08/15/21 9:48:00 ROLLER HAND succinylcho No Route: IV, Memoria line (ANES) 08-15 Drug form: l 15:48: INJ, ONCE, Stop date: 08/15/21 9:48:00 ROLLER HAND fentaNYL No Route: IV, Mem oria (ANES) 2- Drug form: l 15:48: INJ, ONCE, Stop date: 08/15/21 9:48:00 ROLLER HAND ondansetron No Route: IV, Memoria (ANES) 2- Drug form: l 15:48: INJ, ONCE, Stop date: 08/15/21 9:48:00 ROLLER HAND dexamethaso No Route: IV, Memoria ne (ANES) 2 Drug form: l 15:48: INJ, ONCE, Stop date: 08/15/21 9:48:00 ROLLER HAND cefOXitin No Route: IV, Me moria (ANES) 2- Drug form: l 15:48: INJ, ONCE, Stop date: 08/15/21 9:48:00 ROLLER HAND famotidine No Route: IV, M emoria (ANES) 2- Drug form: l 15:48: INJ, ONCE, Stop date: 08/15/21 9:48:00 ROLLER HAND ePHEDrine No Route: IV, Me moria (ANES) 2- Drug form: l 15:48: INJ, ONCE, Stop date: 08/15/21 9:48:00 ROLLER HAND sugammadex No Route: IV, M emoria (ANES) 2- Drug form: l 15:48: SOLN, 00 ONCE, Stop date: 08/15/21 9:48:00 ROLLER HAND midazolam 2021-0 No Route: IV, Me moria (ANES) 2- Drug form: l 15:48: SOLN, ONCE, Stop date: 08/15/21 9:48:00 ROLLER HAND lidocaine 2021-0 No Route: IV, Me moria (ANES) 2- Drug form: l 15:48: INJ, ONCE, Stop date: 08/15/21 9:48:00 ROLLER HAND propofol 2021-0 No Route: IV, Mem oria (ANES) 2 Drug form: l 15:48: INJ, ONCE, Stop date: 08/15/21 9:48:00 ROLLER HAND rocuronium 2021-0 No Route: IV, M emoria (ANES) 2- Drug form: l 15:48: INJ, ONCE, Stop date: 08/15/21 9:48:00 ROLLER HAND succinylcho 2021-0 No Route: IV, Memoria line (ANES) 08-15 Drug form: l 15:48: INJ, ONCE, Stop date: 08/15/21 9:48:00 ROLLER HAND fentaNYL 2021-0 No Route: IV, Mem oria (ANES) 2- Drug form: l 15:48: INJ, ONCE, Stop date: 08/15/21 9:48:00 ROLLER HAND ondansetron 2021-0 No Route: IV, Memoria (ANES) 2- Drug form: l 15:48: INJ, ONCE, Stop date: 08/15/21 9:48:00 ROLLER HAND dexamethaso 0 No Route: IV, Memoria ne (ANES) 2 Drug form: l 15:48: INJ, ONCE, Stop date: 08/15/21 9:48:00 ROLLER HAND cefOXitin 2021-0 No Route: IV, Me moria (ANES) 2- Drug form: l 15:48: INJ, ONCE, Stop date: 08/15/21 9:48:00 ROLLER HAND famotidine 2021-0 No Route: IV, M emoria (ANES) 2- Drug form: l 15:48: INJ, ONCE, Stop date: 08/15/21 9:48:00 ROLLER HAND ePHEDrine 0 No Route: IV, Me moria (ANES) 2- Drug form: l 15:48: INJ, ONCE, Stop date: 08/15/21 9:48:00 ROLLER HAND sugammadex 0 No Route: IV, M emoria (ANES) 2 Drug form: l 15:48: SOLN, ONCE, Stop date: 08/15/21 9:48:00 ROLLER HAND midazolam 2021-0 No Route: IV, Me moria (ANES) 2 Drug form: l 15:48: SOLN, ONCE, Stop date: 08/15/21 9:48:00 ROLLER HAND lidocaine 0 No Route: IV, Me moria (ANES) 08-15 Drug form: l 15:48: INJ, ONCE, Stop date: 08/15/21 9:48:00 ROLLER HAND propofol 2021-0 No Route: IV, Mem oria (ANES) 08-15 Drug form: l 15:48: INJ, ONCE, Stop date: 08/15/21 9:48:00 ROLLER HAND rocuronium 0 No Route: IV, M emoria (ANES) 08-15 Drug form: l 15:48: INJ, ONCE, Stop date: 08/15/21 9:48:00 ROLLER HAND succinylcho No Route: IV, Memoria line (ANES) 08-15 Drug form: l 15:48: INJ, ONCE, Stop date: 08/15/21 9:48:00 ROLLER HAND fentaNYL 2021-0 No Route: IV, Mem oria (ANES) 2- Drug form: l 15:48: INJ, ONCE, Stop date: 08/15/21 9:48:00 ROLLER HAND ondansetron 0 No Route: IV, Memoria (ANES) 2- Drug form: l 15:48: INJ, ONCE, Stop date: 08/15/21 9:48:00 ROLLER HAND dexamethaso No Route: IV, Memoria ne (ANES) 2 Drug form: l 15:48: INJ, ONCE, Stop date: 08/15/21 9:48:00 ROLLER HAND cefOXitin 0 No Route: IV, Me moria (ANES) 2- Drug form: l 15:48: INJ, ONCE, Stop date: 08/15/21 9:48:00 ROLLER HAND famotidine No Route: IV, M emoria (ANES) 2- Drug form: l 15:48: INJ, ONCE, Stop date: 08/15/21 9:48:00 ROLLER HAND ePHEDrine 0 No Route: IV, Me moria (ANES) 2- Drug form: l 15:48: INJ, ONCE, Stop date: 08/15/21 9:48:00 ROLLER HAND sugammadex 0 No Route: IV, M emoria (ANES) 2- Drug form: l 15:48: SOLN, [place] 00 ONCE, Stop date: 08/15/21 9:48:00 ROLLER HAND midazolam 0 No Route: IV, Me moria (ANES) 2- Drug form: l 15:48: SOLN, ONCE, Stop date: 08/15/21 9:48:00 ROLLER HAND lidocaine 2021-0 No Route: IV, Me moria (ANES) 2- Drug form: l 15:48: INJ, ONCE, Stop date: 08/15/21 9:48:00 ROLLER HAND propofol 2021-0 No Route: IV, Mem oria (ANES) 2- Drug form: l 15:48: INJ, ONCE, Stop date: 08/15/21 9:48:00 ROLLER HAND rocuronium 0 No Route: IV, M emoria (ANES) 2- Drug form: l 15:48: INJ, ONCE, Stop date: 08/15/21 9:48:00 ROLLER HAND succinylcho 0 No Route: IV, Memoria line (ANES) 2- Drug form: l 15:48: INJ, ONCE, Stop date: 08/15/21 9:48:00 ROLLER HAND fentaNYL 2021-0 No Route: IV, Mem oria (ANES) 2- Drug form: l 15:48: INJ, ONCE, Stop date: 08/15/21 9:48:00 ROLLER HAND ondansetron No Route: IV, Memoria (ANES) 2- Drug form: l 15:48: INJ, ONCE, Stop date: 08/15/21 9:48:00 ROLLER HAND dexamethaso No Route: IV, Memoria ne (ANES) 08-15 Drug form: l 15:48: INJ, ONCE, Stop date: 08/15/21 9:48:00 ROLLER HAND cefOXitin No Route: IV, Me moria (ANES) 2 Drug form: l 15:48: INJ, ONCE, Stop date: 08/15/21 9:48:00 ROLLER HAND famotidine No Route: IV, M emoria (ANES) 08-15 Drug form: l 15:48: INJ, ONCE, Stop date: 08/15/21 9:48:00 ROLLER HAND ePHEDrine No Route: IV, Me moria (ANES) 08-15 Drug form: l 15:48: INJ, ONCE, Stop date: 08/15/21 9:48:00 ROLLER HAND sugammadex No Route: IV, M emoria (ANES) 2 Drug form: l 15:48: SOLN, [place] 00 ONCE, Stop date: 08/15/21 9:48:00 ROLLER HAND midazolam 2021-0 No Route: IV, Me moria (ANES) 2- Drug form: l 15:48: SOLN, [place] 00 ONCE, Stop date: 08/15/21 9:48:00 ROLLER HAND lidocaine 2021-0 No Route: IV, Me moria (ANES) 2- Drug form: l 15:48: INJ, ONCE, Stop date: 08/15/21 9:48:00 ROLLER HAND propofol 2021-0 No Route: IV, Mem oria (ANES) 08-15 Drug form: l 15:48: INJ, ONCE, Stop date: 08/15/21 9:48:00 ROLLER HAND rocuronium 0 No Route: IV, M emoria (ANES) 2- Drug form: l 15:48: INJ, ONCE, Stop date: 08/15/21 9:48:00 ROLLER HAND succinylcho 0 No Route: IV, Memoria line (ANES) - Drug form: l 15:48: INJ, ONCE, Stop date: 08/15/21 9:48:00 ROLLER HAND fentaNYL 2021-0 No Route: IV, Mem oria (ANES) 2 Drug form: l 15:48: INJ, ONCE, Stop date: 08/15/21 9:48:00 ROLLER HAND ondansetron No Route: IV, Memoria (ANES) 2- Drug form: l 15:48: INJ, ONCE, Stop date: 08/15/21 9:48:00 ROLLER HAND dexamethaso No Route: IV, Memoria ne (ANES) 08-15 Drug form: l 15:48: INJ, ONCE, Stop date: 08/15/21 9:48:00 ROLLER HAND cefOXitin 2021-0 No Route: IV, Me moria (ANES) 2- Drug form: l 15:48: INJ, ONCE, Stop date: 08/15/21 9:48:00 ROLLER HAND famotidine 0 No Route: IV, M emoria (ANES) 2- Drug form: l 15:48: INJ, ONCE, Stop date: 08/15/21 9:48:00 ROLLER HAND ePHEDrine 0 No Route: IV, Me moria (ANES) 2- Drug form: l 15:48: INJ, ONCE, Stop date: 08/15/21 9:48:00 ROLLER HAND sugammadex 0 No Route: IV, M emoria (ANES) 2- Drug form: l 15:48: SOLN, ONCE, Stop date: 08/15/21 9:48:00 ROLLER HAND midazolam 2021-0 No Route: IV, Me moria (ANES) 2- Drug form: l 15:48: SOLN, [place] ONCE, Stop date: 08/15/21 9:48:00 ROLLER HAND lidocaine 2021-0 No Route: IV, Me moria (ANES) 2- Drug form: l 15:48: INJ, ONCE, Stop date: 08/15/21 9:48:00 ROLLER HAND propofol 2021-0 No Route: IV, Mem oria (ANES) 2- Drug form: l 15:48: INJ, ONCE, Stop date: 08/15/21 9:48:00 ROLLER HAND rocuronium 0 No Route: IV, M emoria (ANES) 2 Drug form: l 15:48: INJ, ONCE, Stop date: 08/15/21 9:48:00 ROLLER HAND succinylcho No Route: IV, Memoria line (ANES) 08-15 Drug form: l 15:48: INJ, ONCE, Stop date: 08/15/21 9:48:00 ROLLER HAND fentaNYL No Route: IV, Mem oria (ANES) 08-15 Drug form: l 15:48: INJ, ONCE, Stop date: 08/15/21 9:48:00 ROLLER HAND ondansetron No Route: IV, Memoria (ANES) 08-15 Drug form: l 15:48: INJ, ONCE, Stop date: 08/15/21 9:48:00 ROLLER HAND dexamethaso No Route: IV, Memoria ne (ANES) 08-15 Drug form: l 15:48: INJ, ONCE, Stop date: 08/15/21 9:48:00 ROLLER HAND cefOXitin No Route: IV, Me moria (ANES) 2- Drug form: l 15:48: INJ, ONCE, Stop date: 08/15/21 9:48:00 ROLLER HAND famotidine No Route: IV, M emoria (ANES) 2- Drug form: l 15:48: INJ, ONCE, Stop date: 08/15/21 9:48:00 ROLLER HAND ePHEDrine No Route: IV, Me moria (ANES) 2- Drug form: l 15:48: INJ, ONCE, Stop date: 08/15/21 9:48:00 ROLLER HAND sugammadex 2021-0 No Route: IV, M emoria (ANES) 2- Drug form: l 15:48: SOLN, [place] ONCE, Stop date: 08/15/21 9:48:00 ROLLER HAND midazolam 2021-0 No Route: IV, Me moria (ANES) 2- Drug form: l 15:48: SOLN, [place] ONCE, Stop date: 08/15/21 9:48:00 ROLLER HAND lidocaine 2021-0 No Route: IV, Me moria (ANES) 2- Drug form: l 15:48: INJ, ONCE, Stop date: 08/15/21 9:48:00 ROLLER HAND propofol 2021-0 No Route: IV, Mem oria (ANES) 2- Drug form: l 15:48: INJ, ONCE, Stop date: 08/15/21 9:48:00 ROLLER HAND rocuronium 2021-0 No Route: IV, M emoria (ANES) 2 Drug form: l 15:48: INJ, ONCE, Stop date: 08/15/21 9:48:00 ROLLER HAND succinylcho 2021-0 No Route: IV, Memoria line (ANES) 08-15 Drug form: l 15:48: INJ, ONCE, Stop date: 08/15/21 9:48:00 ROLLER HAND fentaNYL 2021-0 No Route: IV, Mem oria (ANES) 2- Drug form: l 15:48: INJ, ONCE, Stop date: 08/15/21 9:48:00 ROLLER HAND ondansetron 2021-0 No Route: IV, Memoria (ANES) 2- Drug form: l 15:48: INJ, ONCE, Stop date: 08/15/21 9:48:00 ROLLER HAND dexamethaso 2021-0 No Route: IV, Memoria ne (ANES) 2- Drug form: l 15:48: INJ, ONCE, Stop date: 08/15/21 9:48:00 ROLLER HAND cefOXitin 2021-0 No Route: IV, Me moria (ANES) 2- Drug form: l 15:48: INJ, ONCE, Stop date: 08/15/21 9:48:00 ROLLER HAND famotidine No Route: IV, M emoria (ANES) - Drug form: l 15:48: INJ, ONCE, Stop date: 08/15/21 9:48:00 ROLLER HAND ePHEDrine No Route: IV, Me moria (ANES) 2 Drug form: l 15:48: INJ, ONCE, Stop date: 08/15/21 9:48:00 ROLLER HAND sugammadex No Route: IV, M emoria (ANES) 08-15 Drug form: l 15:48: SOLN, ONCE, Stop date: 08/15/21 9:48:00 ROLLER HAND midazolam No Route: IV, Me moria (ANES) 08-15 Drug form: l 15:48: SOLN, ONCE, Stop date: 08/15/21 9:48:00 ROLLER HAND lidocaine 0 No Route: IV, Me moria (ANES) 08-15 Drug form: l 15:48: INJ, ONCE, Stop date: 08/15/21 9:48:00 ROLLER HAND propofol 0 No Route: IV, Mem oria (ANES) 08-15 Drug form: l 15:48: INJ, ONCE, Stop date: 08/15/21 9:48:00 ROLLER HAND rocuronium No Route: IV, M emoria (ANES) 2- Drug form: l 15:48: INJ, ONCE, Stop date: 08/15/21 9:48:00 ROLLER HAND succinylcho No Route: IV, Memoria line (ANES) 08-15 Drug form: l 15:48: INJ, ONCE, Stop date: 08/15/21 9:48:00 ROLLER HAND fentaNYL 0 No Route: IV, Mem oria (ANES) 2- Drug form: l 15:48: INJ, ONCE, Stop date: 08/15/21 9:48:00 ROLLER HAND ondansetron No Route: IV, Memoria (ANES) 2- Drug form: l 15:48: INJ, ONCE, Stop date: 08/15/21 9:48:00 ROLLER HAND dexamethaso 0 No Route: IV, Memoria ne (ANES) 08-15 Drug form: l 15:48: INJ, ONCE, Stop date: 08/15/21 9:48:00 ROLLER HAND cefOXitin 0 No Route: IV, Me moria (ANES) 2 Drug form: l 15:48: INJ, ONCE, Stop date: 08/15/21 9:48:00 ROLLER HAND famotidine 0 No Route: IV, M emoria (ANES) 08-15 Drug form: l 15:48: INJ, ONCE, Stop date: 08/15/21 9:48:00 ROLLER HAND ePHEDrine No Route: IV, Me moria (ANES) 08-15 Drug form: l 15:48: INJ, ONCE, Stop date: 08/15/21 9:48:00 ROLLER HAND sugammadex 0 No Route: IV, M emoria (ANES) 08-15 Drug form: l 15:48: SOLN, [place] ONCE, Stop date: 08/15/21 9:48:00 ROLLER HAND midazolam 2021-0 No Route: IV, Me moria (ANES) 08-15 Drug form: l 15:48: SOLN, [place] 00 ONCE, Stop date: 08/15/21 9:48:00 ROLLER HAND lidocaine 2021-0 No Route: IV, Me moria (ANES) 2 Drug form: l 15:48: INJ, ONCE, Stop date: 08/15/21 9:48:00 ROLLER HAND propofol 2021-0 No Route: IV, Mem oria (ANES) 08-15 Drug form: l 15:48: INJ, ONCE, Stop date: 08/15/21 9:48:00 ROLLER HAND rocuronium 2021-0 No Route: IV, M emoria (ANES) 2- Drug form: l 15:48: INJ, ONCE, Stop date: 08/15/21 9:48:00 ROLLER HAND succinylcho 2021-0 No Route: IV, Memoria line (ANES) 08-15 Drug form: l 15:48: INJ, ONCE, Stop date: 08/15/21 9:48:00 ROLLER HAND fentaNYL 2021-0 No Route: IV, Mem oria (ANES) 2 Drug form: l 15:48: INJ, ONCE, Stop date: 08/15/21 9:48:00 ROLLER HAND ondansetron No Route: IV, Memoria (ANES) 2 Drug form: l 15:48: INJ, ONCE, Stop date: 08/15/21 9:48:00 ROLLER HAND dexamethaso No Route: IV, Memoria ne (ANES) 08-15 Drug form: l 15:48: INJ, ONCE, Stop date: 08/15/21 9:48:00 ROLLER HAND cefOXitin No Route: IV, Me moria (ANES) 08-15 Drug form: l 15:48: INJ, ONCE, Stop date: 08/15/21 9:48:00 ROLLER HAND famotidine No Route: IV, M emoria (ANES) 08-15 Drug form: l 15:48: INJ, ONCE, Stop date: 08/15/21 9:48:00 ROLLER HAND ePHEDrine No Route: IV, Me moria (ANES) 08-15 Drug form: l 15:48: INJ, ONCE, Stop date: 08/15/21 9:48:00 ROLLER HAND sugammadex No Route: IV, M emoria (ANES) 2- Drug form: l 15:48: SOLN, [place] 00 ONCE, Stop date: 08/15/21 9:48:00 ROLLER HAND midazolam 2021-0 No Route: IV, Me moria (ANES) 2- Drug form: l 15:48: SOLN, [place] 00 ONCE, Stop date: 08/15/21 9:48:00 ROLLER HAND lidocaine 2021-0 No Route: IV, Me moria (ANES) 2- Drug form: l 15:48: INJ, ONCE, Stop date: 08/15/21 9:48:00 ROLLER HAND propofol 2021-0 No Route: IV, Mem oria (ANES) 2- Drug form: l 15:48: INJ, ONCE, Stop date: 08/15/21 9:48:00 ROLLER HAND rocuronium 0 No Route: IV, M emoria (ANES) 2- Drug form: l 15:48: INJ, ONCE, Stop date: 08/15/21 9:48:00 ROLLER HAND succinylcho 0 No Route: IV, Memoria line (ANES) 08-15 Drug form: l 15:48: INJ, ONCE, Stop date: 08/15/21 9:48:00 ROLLER HAND fentaNYL 2021-0 No Route: IV, Mem oria (ANES) 2- Drug form: l 15:48: INJ, ONCE, Stop date: 08/15/21 9:48:00 ROLLER HAND ondansetron No Route: IV, Memoria (ANES) 2- Drug form: l 15:48: INJ, ONCE, Stop date: 08/15/21 9:48:00 ROLLER HAND dexamethaso No Route: IV, Memoria ne (ANES) 08-15 Drug form: l 15:48: INJ, ONCE, Stop date: 08/15/21 9:48:00 ROLLER HAND cefOXitin 0 No Route: IV, Me moria (ANES) 2- Drug form: l 15:48: INJ, ONCE, Stop date: 08/15/21 9:48:00 ROLLER HAND famotidine No Route: IV, M emoria (ANES) 2- Drug form: l 15:48: INJ, ONCE, Stop date: 08/15/21 9:48:00 ROLLER HAND ePHEDrine 0 No Route: IV, Me moria (ANES) 2- Drug form: l 15:48: INJ, ONCE, Stop date: 08/15/21 9:48:00 ROLLER HAND sugammadex 2021-0 No Route: IV, M emoria (ANES) 2- Drug form: l 15:48: SOLN, 00 ONCE, Stop date: 08/15/21 9:48:00 ROLLER HAND midazolam 2021-0 No Route: IV, Me moria (ANES) 2- Drug form: l 15:48: SOLN, ONCE, Stop date: 08/15/21 9:48:00 ROLLER HAND lidocaine 2021-0 No Route: IV, Me moria (ANES) 2- Drug form: l 15:48: INJ, ONCE, Stop date: 08/15/21 9:48:00 ROLLER HAND propofol 2021-0 No Route: IV, Mem oria (ANES) 2- Drug form: l 15:48: INJ, ONCE, Stop date: 08/15/21 9:48:00 ROLLER HAND rocuronium 2021-0 No Route: IV, M emoria (ANES) 2- Drug form: l 15:48: INJ, ONCE, Stop date: 08/15/21 9:48:00 ROLLER HAND succinylcho 0 No Route: IV, Memoria line (ANES) 08-15 Drug form: l 15:48: INJ, ONCE, Stop date: 08/15/21 9:48:00 ROLLER HAND fentaNYL 2021-0 No Route: IV, Mem oria (ANES) 2 Drug form: l 15:48: INJ, ONCE, Stop date: 08/15/21 9:48:00 ROLLER HAND ondansetron 2021-0 No Route: IV, Memoria (ANES) 2- Drug form: l 15:48: INJ, ONCE, Stop date: 08/15/21 9:48:00 ROLLER HAND dexamethaso 0 No Route: IV, Memoria ne (ANES) 2- Drug form: l 15:48: INJ, ONCE, Stop date: 08/15/21 9:48:00 ROLL[employer] HAND cefOXitin 2021-0 No Route: IV, Me moria (ANES) 2- Drug form: l 15:48: INJ, ONCE, Stop date: 08/15/21 9:48:00 ROLL[employer] HAND famotidine 2021-0 No Route: IV, M emoria (ANES) 2- Drug form: l 15:48: INJ, ONCE, Stop date: 08/15/21 9:48:00 ROLL[employer] HAND ePHEDrine 2021-0 No Route: IV, Me moria (ANES) 2- Drug form: l 15:48: INJ, ONCE, Stop date: 08/15/21 9:48:00 ROLL[employer] HAND sugammadex 0 No Route: IV, M emoria (ANES) 2- Drug form: l 15:48: SOLN, [place] 00 ONCE, Stop date: 08/15/21 9:48:00 ROLL[employer] HAND midazolam 2021-0 No Route: IV, Me moria (ANES) 2- Drug form: l 15:48: SOLN, [place] ONCE, Stop date: 08/15/21 9:48:00 RO[employer] HAND lidocaine 2021-0 No Route: IV, Me moria (ANES) 2- Drug form: l 15:48: INJ, ONCE, Stop date: 08/15/21 9:48:00 ROLL[employer] HAND propofol 2021-0 No Route: IV, Mem oria (ANES) 08-15 Drug form: l 15:48: INJ, ONCE, Stop date: 08/15/21 9:48:00 ROLL[employer] HAND rocuronium 0 No Route: IV, M emoria (ANES) 08-15 Drug form: l 15:48: INJ, ONCE, Stop date: 08/15/21 9:48:00 ROLLER HAND succinylcho 0 No Route: IV, Memoria line (ANES) 08-15 Drug form: l 15:48: INJ, ONCE, Stop date: 08/15/21 9:48:00 ROLLER HAND fentaNYL 2021-0 No Route: IV, Mem oria (ANES) 2- Drug form: l 15:48: INJ, ONCE, Stop date: 08/15/21 9:48:00 ROLL[employer] HAND ondansetron 2021-0 No Route: IV, Memoria (ANES) 2- Drug form: l 15:48: INJ, ONCE, Stop date: 08/15/21 9:48:00 ROLLER HAND dexamethaso No Route: IV, Memoria ne (ANES) 2 Drug form: l 15:48: INJ, ONCE, Stop date: 08/15/21 9:48:00 ROLL[employer] HAND cefOXitin 2021-0 No Route: IV, Me moria (ANES) 2- Drug form: l 15:48: INJ, ONCE, Stop date: 08/15/21 9:48:00 ROLL[employer] HAND famotidine 2021-0 No Route: IV, M emoria (ANES) 2- Drug form: l 15:48: INJ, ONCE, Stop date: 08/15/21 9:48:00 ROLL[employer] HAND ePHEDrine 2021-0 No Route: IV, Me moria (ANES) 2- Drug form: l 15:48: INJ, ONCE, Stop date: 08/15/21 9:48:00 ROLLER HAND sugammadex 2021-0 No Route: IV, M emoria (ANES) 2- Drug form: l 15:48: SOLN, ONCE, Stop date: 08/15/21 9:48:00 ROLL[employer] HAND midazolam 2021-0 No Route: IV, Me moria (ANES) 2- Drug form: l 15:48: SOLN, ONCE, Stop date: 08/15/21 9:48:00 ROLL[employer] HAND lidocaine 2021-0 No Route: IV, Me moria (ANES) 2- Drug form: l 15:48: INJ, ONCE, Stop date: 08/15/21 9:48:00 ROLLER HAND propofol 2021-0 No Route: IV, Mem oria (ANES) 2- Drug form: l 15:48: INJ, ONCE, Stop date: 08/15/21 9:48:00 ROLLER HAND rocuronium 2021-0 No Route: IV, M emoria (ANES) 2- Drug form: l 15:48: INJ, ONCE, Stop date: 08/15/21 9:48:00 ROLLER HAND succinylcho 2021-0 No Route: IV, Memoria line (ANES) 2- Drug form: l 15:48: INJ, ONCE, Stop date: 08/15/21 9:48:00 ROLLER HAND fentaNYL 2021-0 No Route: IV, Mem oria (ANES) 2- Drug form: l 15:48: INJ, ONCE, Stop date: 08/15/21 9:48:00 ROLLER HAND ondansetron No Route: IV, Memoria (ANES) 2- Drug form: l 15:48: INJ, ONCE, Stop date: 08/15/21 9:48:00 ROLLER HAND dexamethaso No Route: IV, Memoria ne (ANES) 2 Drug form: l 15:48: INJ, ONCE, Stop date: 08/15/21 9:48:00 RO[employer] HAND cefOXitin 0 No Route: IV, Me moria (ANES) 2 Drug form: l 15:48: INJ, ONCE, Stop date: 08/15/21 9:48:00 ROLLER HAND famotidine No Route: IV, M emoria (ANES) 08-15 Drug form: l 15:48: INJ, ONCE, Stop date: 08/15/21 9:48:00 ROLLER HAND ePHEDrine No Route: IV, Me moria (ANES) 2 Drug form: l 15:48: INJ, ONCE, Stop date: 08/15/21 9:48:00 ROLLER HAND sugammadex 0 No Route: IV, M emoria (ANES) 2- Drug form: l 15:48: SOLN, ONCE, Stop date: 08/15/21 9:48:00 ROLLER HAND midazolam 2021-0 No Route: IV, Me moria (ANES) 2- Drug form: l 15:48: SOLN, ONCE, Stop date: 08/15/21 9:48:00 ROLLER HAND lidocaine 2021-0 No Route: IV, Me moria (ANES) 2- Drug form: l 15:48: INJ, ONCE, Stop date: 08/15/21 9:48:00 ROLLER HAND propofol 2021-0 No Route: IV, Mem oria (ANES) 08-15 Drug form: l 15:48: INJ, ONCE, Stop date: 08/15/21 9:48:00 ROLLER HAND rocuronium 2021-0 No Route: IV, M emoria (ANES) 2- Drug form: l 15:48: INJ, ONCE, Stop date: 08/15/21 9:48:00 ROLLER HAND succinylcho 0 No Route: IV, Memoria line (ANES) 08-15 Drug form: l 15:48: INJ, ONCE, Stop date: 08/15/21 9:48:00 ROLLER HAND fentaNYL 2021-0 No Route: IV, Mem oria (ANES) 08-15 Drug form: l 15:48: INJ, ONCE, Stop date: 08/15/21 9:48:00 ROLLER HAND ondansetron No Route: IV, Memoria (ANES) 2 Drug form: l 15:48: INJ, ONCE, Stop date: 08/15/21 9:48:00 ROLLER HAND dexamethaso No Route: IV, Memoria ne (ANES) 08-15 Drug form: l 15:48: INJ, ONCE, Stop date: 08/15/21 9:48:00 ROLLER HAND cefOXitin 0 No Route: IV, Me moria (ANES) 08-15 Drug form: l 15:48: INJ, ONCE, Stop date: 08/15/21 9:48:00 ROLLER HAND famotidine No Route: IV, M emoria (ANES) 08-15 Drug form: l 15:48: INJ, ONCE, Stop date: 08/15/21 9:48:00 ROLLER HAND ePHEDrine 0 No Route: IV, Me moria (ANES) 2 Drug form: l 15:48: INJ, ONCE, Stop date: 08/15/21 9:48:00 ROLLER HAND sugammadex 0 No Route: IV, M emoria (ANES) 2- Drug form: l 15:48: SOLN, ONCE, Stop date: 08/15/21 9:48:00 ROLLER HAND midazolam 2021-0 No Route: IV, Me moria (ANES) 2- Drug form: l 15:48: SOLN, [place] 00 ONCE, Stop date: 08/15/21 9:48:00 ROLLER HAND lidocaine 2021-0 No Route: IV, Me moria (ANES) 2- Drug form: l 15:48: INJ, ONCE, Stop date: 08/15/21 9:48:00 ROLLER HAND propofol 2021-0 No Route: IV, Mem oria (ANES) 2- Drug form: l 15:48: INJ, ONCE, Stop date: 08/15/21 9:48:00 ROLLER HAND rocuronium 0 No Route: IV, M emoria (ANES) 2- Drug form: l 15:48: INJ, ONCE, Stop date: 08/15/21 9:48:00 ROLLER HAND succinylcho No Route: IV, Memoria line (ANES) 08-15 Drug form: l 15:48: INJ, ONCE, Stop date: 08/15/21 9:48:00 ROLLER HAND fentaNYL 2021-0 No Route: IV, Mem oria (ANES) 2- Drug form: l 15:48: INJ, ONCE, Stop date: 08/15/21 9:48:00 ROLLER HAND ondansetron 0 No Route: IV, Memoria (ANES) 08-15 Drug form: l 15:48: INJ, ONCE, Stop date: 08/15/21 9:48:00 ROLLER HAND dexamethaso No Route: IV, Memoria ne (ANES) - Drug form: l 15:48: INJ, ONCE, Stop date: 08/15/21 9:48:00 ROLLER HAND cefOXitin 2021-0 No Route: IV, Me moria (ANES) 2- Drug form: l 15:48: INJ, ONCE, Stop date: 08/15/21 9:48:00 ROLLER HAND famotidine No Route: IV, M emoria (ANES) 2- Drug form: l 15:48: INJ, ONCE, Stop date: 08/15/21 9:48:00 ROLLER HAND ePHEDrine 2021-0 No Route: IV, Me moria (ANES) 2- Drug form: l 15:48: INJ, ONCE, Stop date: 08/15/21 9:48:00 ROLLER HAND sugammadex 0 No Route: IV, M emoria (ANES) 2- Drug form: l 15:48: SOLN, ONCE, Stop date: 08/15/21 9:48:00 ROLLER HAND midazolam 2021-0 No Route: IV, Me moria (ANES) 2- Drug form: l 15:48: SOLN, ONCE, Stop date: 08/15/21 9:48:00 ROLLER HAND lidocaine 2021-0 No Route: IV, Me moria (ANES) 2- Drug form: l 15:48: INJ, ONCE, Stop date: 08/15/21 9:48:00 ROLLER HAND propofol 0 No Route: IV, Mem oria (ANES) 2- Drug form: l 15:48: INJ, ONCE, Stop date: 08/15/21 9:48:00 ROLLER HAND rocuronium No Route: IV, M emoria (ANES) 2 Drug form: l 15:48: INJ, ONCE, Stop date: 08/15/21 9:48:00 ROLLER HAND succinylcho No Route: IV, Memoria line (ANES) 08-15 Drug form: l 15:48: INJ, ONCE, Stop date: 08/15/21 9:48:00 ROLLER HAND fentaNYL 0 No Route: IV, Mem oria (ANES) 2- Drug form: l 15:48: INJ, ONCE, Stop date: 08/15/21 9:48:00 ROLLER HAND ondansetron No Route: IV, Memoria (ANES) 2- Drug form: l 15:48: INJ, ONCE, Stop date: 08/15/21 9:48:00 ROLLER HAND dexamethaso 0 No Route: IV, Memoria ne (ANES) 2- Drug form: l 15:48: INJ, ONCE, Stop date: 08/15/21 9:48:00 ROLLER HAND cefOXitin 0 No Route: IV, Me moria (ANES) 2- Drug form: l 15:48: INJ, ONCE, Stop date: 08/15/21 9:48:00 ROLLER HAND famotidine 0 No Route: IV, M emoria (ANES) 2- Drug form: l 15:48: INJ, ONCE, Stop date: 08/15/21 9:48:00 ROLLER HAND ePHEDrine 0 No Route: IV, Me moria (ANES) 2- Drug form: l 15:48: INJ, ONCE, Stop date: 08/15/21 9:48:00 ROLLER HAND sugammadex 0 No Route: IV, M emoria (ANES) 08-15 Drug form: l 15:48: SOLN, [place] ONCE, Stop date: 08/15/21 9:48:00 ROLLER HAND midazolam 0 No Route: IV, Me moria (ANES) 2- Drug form: l 15:48: SOLN, [place] 00 ONCE, Stop date: 08/15/21 9:48:00 ROLLER HAND lidocaine 2021-0 No Route: IV, Me moria (ANES) 2 Drug form: l 15:48: INJ, ONCE, Stop date: 08/15/21 9:48:00 ROLLER HAND propofol 2021-0 No Route: IV, Mem oria (ANES) 08-15 Drug form: l 15:48: INJ, ONCE, Stop date: 08/15/21 9:48:00 ROLLER HAND rocuronium 2021-0 No Route: IV, M emoria (ANES) - Drug form: l 15:48: INJ, ONCE, Stop date: 08/15/21 9:48:00 ROLLER HAND succinylcho 0 No Route: IV, Memoria line (ANES) 08-15 Drug form: l 15:48: INJ, ONCE, Stop date: 08/15/21 9:48:00 ROLLER HAND fentaNYL 2021-0 No Route: IV, Mem oria (ANES) 2- Drug form: l 15:48: INJ, ONCE, Stop date: 08/15/21 9:48:00 ROLLER HAND ondansetron 0 No Route: IV, Memoria (ANES) 2- Drug form: l 15:48: INJ, ONCE, Stop date: 08/15/21 9:48:00 ROLLER HAND dexamethaso 2021-0 No Route: IV, Memoria ne (ANES) 2- Drug form: l 15:48: INJ, ONCE, Stop date: 08/15/21 9:48:00 ROLLER HAND cefOXitin 2021-0 No Route: IV, Me moria (ANES) 2- Drug form: l 15:48: INJ, ONCE, Stop date: 08/15/21 9:48:00 ROLLER HAND famotidine 2021-0 No Route: IV, M emoria (ANES) 2- Drug form: l 15:48: INJ, ONCE, Stop date: 08/15/21 9:48:00 ROLLER HAND ePHEDrine 0 No Route: IV, Me moria (ANES) 2- Drug form: l 15:48: INJ, ONCE, Stop date: 08/15/21 9:48:00 ROLLER HAND sugammadex 2021-0 No Route: IV, M emoria (ANES) 2- Drug form: l 15:48: SOLN, [place] 00 ONCE, Stop date: 08/15/21 9:48:00 ROLLER HAND midazolam 2021-0 No Route: IV, Me moria (ANES) 2- Drug form: l 15:48: SOLN, [place] 00 ONCE, Stop date: 08/15/21 9:48:00 ROLLER HAND lidocaine 2021-0 No Route: IV, Me moria (ANES) 2- Drug form: l 15:48: INJ, ONCE, Stop date: 08/15/21 9:48:00 ROLLER HAND propofol 2021-0 No Route: IV, Mem oria (ANES) 2- Drug form: l 15:48: INJ, ONCE, Stop date: 08/15/21 9:48:00 ROLLER HAND rocuronium 2021-0 No Route: IV, M emoria (ANES) 2- Drug form: l 15:48: INJ, ONCE, Stop date: 08/15/21 9:48:00 ROLLER HAND succinylcho 2021-0 No Route: IV, Memoria line (ANES) 2- Drug form: l 15:48: INJ, ONCE, Stop date: 08/15/21 9:48:00 ROLLER HAND fentaNYL 2021-0 No Route: IV, Mem oria (ANES) 2- Drug form: l 15:48: INJ, ONCE, Stop date: 08/15/21 9:48:00 ROLLER HAND ondansetron 0 No Route: IV, Memoria (ANES) 2- Drug form: l 15:48: INJ, ONCE, Stop date: 08/15/21 9:48:00 ROLLER HAND dexamethaso 0 No Route: IV, Memoria ne (ANES) 2 Drug form: l 15:48: INJ, ONCE, Stop date: 08/15/21 9:48:00 ROLLER HAND cefOXitin 2021-0 No Route: IV, Me moria (ANES) 2- Drug form: l 15:48: INJ, ONCE, Stop date: 08/15/21 9:48:00 ROLLER HAND famotidine 0 No Route: IV, M emoria (ANES) 2- Drug form: l 15:48: INJ, ONCE, Stop date: 08/15/21 9:48:00 ROLLER HAND ePHEDrine 2021-0 No Route: IV, Me moria (ANES) 2- Drug form: l 15:48: INJ, ONCE, Stop date: 08/15/21 9:48:00 ROLLER HAND sugammadex 2021-0 No Route: IV, M emoria (ANES) 2- Drug form: l 15:48: SOLN, [place] 00 ONCE, Stop date: 08/15/21 9:48:00 ROLLER HAND midazolam 2021-0 No Route: IV, Me moria (ANES) 2- Drug form: l 15:48: SOLN, [place] 00 ONCE, Stop date: 08/15/21 9:48:00 ROLLER HAND lidocaine 2021-0 No Route: IV, Me moria (ANES) 2- Drug form: l 15:48: INJ, ONCE, Stop date: 08/15/21 9:48:00 ROLLER HAND propofol 2021-0 No Route: IV, Mem oria (ANES) 2- Drug form: l 15:48: INJ, ONCE, Stop date: 08/15/21 9:48:00 ROLLER HAND rocuronium 0 No Route: IV, M emoria (ANES) 2- Drug form: l 15:48: INJ, ONCE, Stop date: 08/15/21 9:48:00 ROLLER HAND succinylcho No Route: IV, Memoria line (ANES) 08-15 Drug form: l 15:48: INJ, ONCE, Stop date: 08/15/21 9:48:00 ROLLER HAND fentaNYL 2021-0 No Route: IV, Mem oria (ANES) 08-15 Drug form: l 15:48: INJ, ONCE, Stop date: 08/15/21 9:48:00 ROLLER HAND ondansetron No Route: IV, Memoria (ANES) 08-15 Drug form: l 15:48: INJ, ONCE, Stop date: 08/15/21 9:48:00 ROLLER HAND dexamethaso No Route: IV, Memoria ne (ANES) 08-15 Drug form: l 15:48: INJ, ONCE, Stop date: 08/15/21 9:48:00 ROLLER HAND cefOXitin No Route: IV, Me moria (ANES) 08-15 Drug form: l 15:48: INJ, ONCE, Stop date: 08/15/21 9:48:00 ROLLER HAND famotidine No Route: IV, M emoria (ANES) 2 Drug form: l 15:48: INJ, ONCE, Stop date: 08/15/21 9:48:00 ROLLER HAND ePHEDrine No Route: IV, Me moria (ANES) 2- Drug form: l 15:48: INJ, ONCE, Stop date: 08/15/21 9:48:00 ROLLER HAND sugammadex 0 No Route: IV, M emoria (ANES) 2- Drug form: l 15:48: SOLN, ONCE, Stop date: 08/15/21 9:48:00 ROLLER HAND Hydralazine 0 No Notes: [place] timbo 2-22 (Same as: l 15:29: Apresoline ) Push over 5 minutes Labetalol No 10 mg, 2 [place] timbo 2-22 mL, Route: l 15:29: IVP, Drug form: INJ, Q5Min, Dosing Weight 74.091, kg, PRN Elevated BP, Start date: 08/15/21 9:29:00 ROLLER HAND, Duration: 5 doses or times, Stop date: 08/16/21 0:00:00 ROLLER HAND, 0 Acetaminoph No 1,000 mg, M emoria en 08-15 Route: PO, l 15:29: Drug form: TAB, ONCE, Dosing Weight 74.091, kg, PRN Pain Score 1-3, Start date: 08/15/21 9:29:00 ROLLER HAND Oxycodone No 2.5 mg, Memor ia - Route: PO, l 15:29: Drug form: LIQ, Q4H, Dosing Weight 74.091, kg, PRN Pain Score 4-6, Start date: 08/15/21 9:29:00 ROLLER HAND, Duration: 30 day, Stop date: 09/14/21 9:28:00 CDT Fentanyl No 25 Memoria 2-22 microgram, l 15:29: Route: IVP, Q5Min, Dosing Weight 74.091, kg, PRN Pain Score 4-6, Priority: Routine, Start date: 08/15/21 9:29:00 ROLLER HAND, Duration: 4 doses or times, Stop date: Limited # of times Flumazenil No Notes: Memor ia 2-22 (Same as: l 15:29: Romazicon) Naloxone No Notes: Memoria 2-22 Same as l 15:29: Narcan Ondansetron No Notes: Sherman timbo 2-22 (Same as: l 15:29: Zofran) MEDICATION WASTE Product Size: 4 mg Product Wasted: ___ mg Hydralazine No Notes: [place] timbo 2-22 (Same as: l 15:29: Apresoline ) Push over 5 minutes Labetalol No 10 mg, 2 Sherman timbo 2-22 mL, Route: l 15:29: IVP, Drug form: INJ, Q5Min, Dosing Weight 74.091, kg, PRN Elevated BP, Start date: 08/15/21 9:29:00 ROLLER HAND, Duration: 5 doses or times, Stop date: 08/16/21 0:00:00 ROLLER HAND, 0 Acetaminoph No 1,000 mg, M emoria en 08-15 Route: PO, l 15:29: Drug form: TAB, ONCE, Dosing Weight 74.091, kg, PRN Pain Score 1-3, Start date: 08/15/21 9:29:00 ROLLER HAND Oxycodone No 2.5 mg, Memor ia 08-15 Route: PO, l 15:29: Drug form: LIQ, Q4H, Dosing Weight 74.091, kg, PRN Pain Score 4-6, Start date: 08/15/21 9:29:00 ROLLER HAND, Duration: 30 day, Stop date: 09/14/21 9:28:00 CDT Fentanyl No 25 Memoria 2-22 microgram, l 15:29: Route: IVP, Q5Min, Dosing Weight 74.091, kg, PRN Pain Score 4-6, Priority: Routine, Start date: 08/15/21 9:29:00 ROLLER HAND, Duration: 4 doses or times, Stop date: Limited # of times Flumazenil No Notes: Memor ia 2-22 (Same as: l 15:29: Romazicon) Naloxone No Notes: Memoria 2-22 Same as l 15:29: Narcan Ondansetron No Notes: [place] tim[place] 2-22 (Same as: l 15:29: Zofran) MEDICATION WASTE Product Size: 4 mg Product Wasted: ___ mg Hydralazine No Notes: [place] tim[place] 2-22 (Same as: l 15:29: Apresoline ) Push over 5 minutes Labetalol No 10 mg, 2 Sherman timbo 2-22 mL, Route: l 15:29: IVP, Drug form: INJ, Q5Min, Dosing Weight 74.091, kg, PRN Elevated BP, Start date: 08/15/21 9:29:00 ROLLER HAND, Duration: 5 doses or times, Stop date: 08/16/21 0:00:00 ROLLER HAND, 0 Acetaminoph No 1,000 mg, M emoria en 08-15 Route: PO, l 15:29: Drug form: TAB, ONCE, Dosing Weight 74.091, kg, PRN Pain Score 1-3, Start date: 08/15/21 9:29:00 ROLLER HAND Oxycodone No 2.5 mg, Memor ia 08-15 Route: PO, l 15:29: Drug form: LIQ, Q4H, Dosing Weight 74.091, kg, PRN Pain Score 4-6, Start date: 08/15/21 9:29:00 ROLLER HAND, Duration: 30 day, Stop date: 09/14/21 9:28:00 CDT Fentanyl No 25 Memoria 2-22 microgram, l 15:29: Route: IVP, Q5Min, Dosing Weight 74.091, kg, PRN Pain Score 4-6, Priority: Routine, Start date: 08/15/21 9:29:00 ROLLER HAND, Duration: 4 doses or times, Stop date: Limited # of times Flumazenil No Notes: Memor ia 2-22 (Same as: l 15:29: Romazicon) Naloxone No Notes: Memoria 2-22 Same as l 15:29: Narcan Ondansetron No Notes: [place] tim[place] 2-22 (Same as: l 15:29: Zofran) MEDICATION WASTE Product Size: 4 mg Product Wasted: ___ mg Hydralazine No Notes: [place] timbo 2-22 (Same as: l 15:29: Apresoline ) Push over 5 minutes Labetalol No 10 mg, 2 [place] timbo 2-22 mL, Route: l 15:29: IVP, Drug form: INJ, Q5Min, Dosing Weight 74.091, kg, PRN Elevated BP, Start date: 08/15/21 9:29:00 ROLLER HAND, Duration: 5 doses or times, Stop date: 08/16/21 0:00:00 ROLLER HAND, 0 Acetaminoph No 1,000 mg, M emoria en 08-15 Route: PO, l 15:29: Drug form: TAB, ONCE, Dosing Weight 74.091, kg, PRN Pain Score 1-3, Start date: 08/15/21 9:29:00 ROLLER HAND Oxycodone No 2.5 mg, Memor ia 08-15 Route: PO, l 15:29: Drug form: LIQ, Q4H, Dosing Weight 74.091, kg, PRN Pain Score 4-6, Start date: 08/15/21 9:29:00 ROLLER HAND, Duration: 30 day, Stop date: 09/14/21 9:28:00 CDT Fentanyl 0 No 25 Memoria 2-22 microgram, l 15:29: Route: IVP, Q5Min, Dosing Weight 74.091, kg, PRN Pain Score 4-6, Priority: Routine, Start date: 08/15/21 9:29:00 ROLLER HAND, Duration: 4 doses or times, Stop date: Limited # of times Flumazenil No Notes: Memor ia 2-22 (Same as: l 15:29: Romazicon) Naloxone No Notes: Memoria 2-22 Same as l 15:29: Narcan Ondansetron No Notes: [place] tim[place] 2-22 (Same as: l 15:29: Zofran) MEDICATION WASTE Product Size: 4 mg Product Wasted: ___ mg Hydralazine No Notes: [place] timbo 2-22 (Same as: l 15:29: Apresoline ) Push over 5 minutes Labetalol No 10 mg, 2 [place] timbo 2-22 mL, Route: l 15:29: IVP, Drug form: INJ, Q5Min, Dosing Weight 74.091, kg, PRN Elevated BP, Start date: 08/15/21 9:29:00 ROLLER HAND, Duration: 5 doses or times, Stop date: 08/16/21 0:00:00 ROLLER HAND, 0 Acetaminoph No 1,000 mg, M emoria en 08-15 Route: PO, l 15:29: Drug form: [place] 00 TAB, ONCE, Dosing Weight 74.091, kg, PRN Pain Score 1-3, Start date: 08/15/21 9:29:00 ROLLER HAND Oxycodone No 2.5 mg, Memor ia 08-15 Route: PO, l 15:29: Drug form: [place] 00 LIQ, Q4H, Dosing Weight 74.091, kg, PRN Pain Score 4-6, Start date: 08/15/21 9:29:00 ROLLER HAND, Duration: 30 day, Stop date: 09/14/21 9:28:00 CDT Fentanyl No 25 Memoria 2-22 microgram, l 15:29: Route: IVP, Q5Min, Dosing Weight 74.091, kg, PRN Pain Score 4-6, Priority: Routine, Start date: 08/15/21 9:29:00 ROLLER HAND, Duration: 4 doses or times, Stop date: Limited # of times Flumazenil No Notes: Memor ia 2-22 (Same as: l 15:29: Romazicon) Naloxone No Notes: Memoria 2-22 Same as l 15:29: Narcan Ondansetron No Notes: [place] timbo 2-22 (Same as: l 15:29: Zofran) MEDICATION WASTE Product Size: 4 mg Product Wasted: ___ mg Hydralazine No Notes: [place] timbo 2-22 (Same as: l 15:29: Apresoline ) Push over 5 minutes Labetalol No 10 mg, 2 [place] timbo 2-22 mL, Route: l 15:29: IVP, Drug form: INJ, Q5Min, Dosing Weight 74.091, kg, PRN Elevated BP, Start date: 08/15/21 9:29:00 ROLLER HAND, Duration: 5 doses or times, Stop date: 08/16/21 0:00:00 ROLLER HAND, 0 Acetaminoph No 1,000 mg, M clintria en 08-15 Route: PO, l 15:29: Drug form: TAB, ONCE, Dosing Weight 74.091, kg, PRN Pain Score 1-3, Start date: 08/15/21 9:29:00 ROLLER HAND Oxycodone No 2.5 mg, Memor ia 2-22 Route: PO, l 15:29: Drug form: LIQ, Q4H, Dosing Weight 74.091, kg, PRN Pain Score 4-6, Start date: 08/15/21 9:29:00 ROLLER HAND, Duration: 30 day, Stop date: 09/14/21 9:28:00 CDT Fentanyl No 25 Memoria 2-22 microgram, l 15:29: Route: IVP, Q5Min, Dosing Weight 74.091, kg, PRN Pain Score 4-6, Priority: Routine, Start date: 08/15/21 9:29:00 ROLLER HAND, Duration: 4 doses or times, Stop date: Limited # of times Flumazenil No Notes: Memor ia 2-22 (Same as: l 15:29: Romazicon) Naloxone No Notes: Memoria 2-22 Same as l 15:29: Narcan Ondansetron No Notes: [place] timbo 2-22 (Same as: l 15:29: Zofran) MEDICATION WASTE Product Size: 4 mg Product Wasted: ___ mg Hydralazine No Notes: [place] timbo 2-22 (Same as: l 15:29: Apresoline ) Push over 5 minutes Labetalol No 10 mg, 2 Sherman timbo 2-22 mL, Route: l 15:29: IVP, Drug form: INJ, Q5Min, Dosing Weight 74.091, kg, PRN Elevated BP, Start date: 08/15/21 9:29:00 ROLLER HAND, Duration: 5 doses or times, Stop date: 08/16/21 0:00:00 ROLLER HAND, 0 Acetaminoph No 1,000 mg, M josephine en 08-15 Route: PO, l 15:29: Drug form: [place] 00 TAB, ONCE, Dosing Weight 74.091, kg, PRN Pain Score 1-3, Start date: 08/15/21 9:29:00 ROLLER HAND Oxycodone No 2.5 mg, Memor ia - Route: PO, l 15:29: Drug form: LIQ, Q4H, Dosing Weight 74.091, kg, PRN Pain Score 4-6, Start date: 08/15/21 9:29:00 ROLLER HAND, Duration: 30 day, Stop date: 09/14/21 9:28:00 CDT Fentanyl No 25 Memoria 2-22 microgram, l 15:29: Route: IVP, Q5Min, Dosing Weight 74.091, kg, PRN Pain Score 4-6, Priority: Routine, Start date: 08/15/21 9:29:00 ROLLER HAND, Duration: 4 doses or times, Stop date: Limited # of times Flumazenil No Notes: Memor ia 2-22 (Same as: l 15:29: Romazicon) Naloxone No Notes: Memoria 2-22 Same as l 15:29: Narcan Ondansetron No Notes: [place] timbo 2-22 (Same as: l 15:29: Zofran) MEDICATION WASTE Product Size: 4 mg Product Wasted: ___ mg Hydralazine No Notes: [place] timbo 2-22 (Same as: l 15:29: Apresoline ) Push over 5 minutes Labetalol No 10 mg, 2 Sherman timbo 2-22 mL, Route: l 15:29: IVP, Drug form: INJ, Q5Min, Dosing Weight 74.091, kg, PRN Elevated BP, Start date: 08/15/21 9:29:00 ROLLER HAND, Duration: 5 doses or times, Stop date: 08/16/21 0:00:00 ROLLER HAND, 0 Acetaminoph No 1,000 mg, M josephine en 08-15 Route: PO, l 15:29: Drug form: [place] 00 TAB, ONCE, Dosing Weight 74.091, kg, PRN Pain Score 1-3, Start date: 08/15/21 9:29:00 ROLLER HAND Oxycodone No 2.5 mg, Memor ia - Route: PO, l 15:29: Drug form: LIQ, Q4H, Dosing Weight 74.091, kg, PRN Pain Score 4-6, Start date: 08/15/21 9:29:00 ROLLER HAND, Duration: 30 day, Stop date: 09/14/21 9:28:00 CDT Fentanyl No 25 Memoria 2-22 microgram, l 15:29: Route: IVP, Q5Min, Dosing Weight 74.091, kg, PRN Pain Score 4-6, Priority: Routine, Start date: 08/15/21 9:29:00 ROLLER HAND, Duration: 4 doses or times, Stop date: Limited # of times Flumazenil No Notes: Memor ia 2-22 (Same as: l 15:29: Romazicon) Naloxone No Notes: Memoria 2-22 Same as l 15:29: Narcan Ondansetron No Notes: [place] timbo 2-22 (Same as: l 15:29: Zofran) MEDICATION WASTE Product Size: 4 mg Product Wasted: ___ mg Hydralazine No Notes: Sherman timbo 2-22 (Same as: l 15:29: Apresoline ) Push over 5 minutes Labetalol No 10 mg, 2 Sherman timbo 2-22 mL, Route: l 15:29: IVP, Drug form: INJ, Q5Min, Dosing Weight 74.091, kg, PRN Elevated BP, Start date: 08/15/21 9:29:00 ROLLER HAND, Duration: 5 doses or times, Stop date: 08/16/21 0:00:00 ROLLER HAND, 0 Acetaminoph No 1,000 mg, M josephine en 08-15 Route: PO, l 15:29: Drug form: Ran 00 TAB, ONCE, Dosing Weight 74.091, kg, PRN Pain Score 1-3, Start date: 08/15/21 9:29:00 ROLLER HAND Oxycodone No 2.5 mg, Memor ia - Route: PO, l 15:29: Drug form: LIQ, Q4H, Dosing Weight 74.091, kg, PRN Pain Score 4-6, Start date: 08/15/21 9:29:00 ROLLER HAND, Duration: 30 day, Stop date: 09/14/21 9:28:00 CDT Fentanyl No 25 Memoria 2-22 microgram, l 15:29: Route: IVP, Q5Min, Dosing Weight 74.091, kg, PRN Pain Score 4-6, Priority: Routine, Start date: 08/15/21 9:29:00 ROLLER HAND, Duration: 4 doses or times, Stop date: Limited # of times Flumazenil No Notes: Memor ia 2-22 (Same as: l 15:29: Romazicon) Naloxone No Notes: Memoria 2-22 Same as l 15:29: Narcan Ondansetron No Notes: [place] timbo 2-22 (Same as: l 15:29: Zofran) MEDICATION WASTE Product Size: 4 mg Product Wasted: ___ mg Hydralazine No Notes: Sherman timbo 2-22 (Same as: l 15:29: Apresoline ) Push over 5 minutes Labetalol No 10 mg, 2 Sherman timbo 2-22 mL, Route: l 15:29: IVP, Drug form: INJ, Q5Min, Dosing Weight 74.091, kg, PRN Elevated BP, Start date: 08/15/21 9:29:00 ROLLER HAND, Duration: 5 doses or times, Stop date: 08/16/21 0:00:00 ROLLER HAND, 0 Acetaminoph No 1,000 mg, M josephine en 2- Route: PO, l 15:29: Drug form: [place] 00 TAB, ONCE, Dosing Weight 74.091, kg, PRN Pain Score 1-3, Start date: 08/15/21 9:29:00 ROLLER HAND Oxycodone No 2.5 mg, Memor ia 2-22 Route: PO, l 15:29: Drug form: LIQ, Q4H, Dosing Weight 74.091, kg, PRN Pain Score 4-6, Start date: 08/15/21 9:29:00 ROLLER HAND, Duration: 30 day, Stop date: 09/14/21 9:28:00 CDT Fentanyl No 25 Memoria 2-22 microgram, l 15:29: Route: IVP, Q5Min, Dosing Weight 74.091, kg, PRN Pain Score 4-6, Priority: Routine, Start date: 08/15/21 9:29:00 ROLLER HAND, Duration: 4 doses or times, Stop date: Limited # of times Flumazenil No Notes: Memor ia 2-22 (Same as: l 15:29: Romazicon) Naloxone No Notes: Memoria 2-22 Same as l 15:29: Narcan Ondansetron No Notes: [place] timbo 2-22 (Same as: l 15:29: Zofran) MEDICATION WASTE Product Size: 4 mg Product Wasted: ___ mg Hydralazine No Notes: Sherman timbo 2-22 (Same as: l 15:29: Apresoline ) Push over 5 minutes Labetalol No 10 mg, 2 Sherman timbo 2-22 mL, Route: l 15:29: IVP, Drug form: INJ, Q5Min, Dosing Weight 74.091, kg, PRN Elevated BP, Start date: 08/15/21 9:29:00 ROLLER HAND, Duration: 5 doses or times, Stop date: 08/16/21 0:00:00 ROLLER HAND, 0 Acetaminoph No 1,000 mg, M josephine en 2- Route: PO, l 15:29: Drug form: [place] 00 TAB, ONCE, Dosing Weight 74.091, kg, PRN Pain Score 1-3, Start date: 08/15/21 9:29:00 ROLLER HAND Oxycodone No 2.5 mg, Memor ia 2-22 Route: PO, l 15:29: Drug form: [place] 00 LIQ, Q4H, Dosing Weight 74.091, kg, PRN Pain Score 4-6, Start date: 08/15/21 9:29:00 ROLLER HAND, Duration: 30 day, Stop date: 09/14/21 9:28:00 CDT Fentanyl No 25 Memoria 2-22 microgram, l 15:29: Route: IVP, Q5Min, Dosing Weight 74.091, kg, PRN Pain Score 4-6, Priority: Routine, Start date: 08/15/21 9:29:00 ROLLER HAND, Duration: 4 doses or times, Stop date: Limited # of times Flumazenil No Notes: Memor ia 2-22 (Same as: l 15:29: Romazicon) Naloxone No Notes: Memoria 2-22 Same as l 15:29: Narcan Ondansetron No Notes: [place] timbo 2-22 (Same as: l 15:29: Zofran) MEDICATION WASTE Product Size: 4 mg Product Wasted: ___ mg Hydralazine No Notes: [place] timbo 2-22 (Same as: l 15:29: Apresoline ) Push over 5 minutes Labetalol No 10 mg, 2 Sherman timbo 2-22 mL, Route: l 15:29: IVP, Drug form: INJ, Q5Min, Dosing Weight 74.091, kg, PRN Elevated BP, Start date: 08/15/21 9:29:00 ROLLER HAND, Duration: 5 doses or times, Stop date: 08/16/21 0:00:00 ROLLER HAND, 0 Acetaminoph No 1,000 mg, M emoria en - Route: PO, l 15:29: Drug form: [place] 00 TAB, ONCE, Dosing Weight 74.091, kg, PRN Pain Score 1-3, Start date: 08/15/21 9:29:00 ROLLER HAND Oxycodone No 2.5 mg, Memor ia 2-22 Route: PO, l 15:29: Drug form: LIQ, Q4H, Dosing Weight 74.091, kg, PRN Pain Score 4-6, Start date: 08/15/21 9:29:00 ROLLER HAND, Duration: 30 day, Stop date: 09/14/21 9:28:00 CDT Fentanyl No 25 Memoria 2-22 microgram, l 15:29: Route: IVP, Q5Min, Dosing Weight 74.091, kg, PRN Pain Score 4-6, Priority: Routine, Start date: 08/15/21 9:29:00 ROLLER HAND, Duration: 4 doses or times, Stop date: Limited # of times Flumazenil No Notes: Memor ia 2-22 (Same as: l 15:29: Romazicon) Naloxone No Notes: Memoria 2-22 Same as l 15:29: Narcan Ondansetron No Notes: [place] timbo 2-22 (Same as: l 15:29: Zofran) MEDICATION WASTE Product Size: 4 mg Product Wasted: ___ mg Hydralazine No Notes: [place] timbo 2-22 (Same as: l 15:29: Apresoline ) Push over 5 minutes Labetalol No 10 mg, 2 [place] timbo 2-22 mL, Route: l 15:29: IVP, Drug form: INJ, Q5Min, Dosing Weight 74.091, kg, PRN Elevated BP, Start date: 08/15/21 9:29:00 ROLLER HAND, Duration: 5 doses or times, Stop date: 08/16/21 0:00:00 ROLLER HAND, 0 Acetaminoph No 1,000 mg, M emoria en 08-15 Route: PO, l 15:29: Drug form: [place] 00 TAB, ONCE, Dosing Weight 74.091, kg, PRN Pain Score 1-3, Start date: 08/15/21 9:29:00 ROLLER HAND Oxycodone No 2.5 mg, Memor ia - Route: PO, l 15:29: Drug form: LIQ, Q4H, Dosing Weight 74.091, kg, PRN Pain Score 4-6, Start date: 08/15/21 9:29:00 ROLLER HAND, Duration: 30 day, Stop date: 09/14/21 9:28:00 CDT Fentanyl No 25 Memoria 2- microgram, l 15:29: Route: IVP, Q5Min, Dosing Weight 74.091, kg, PRN Pain Score 4-6, Priority: Routine, Start date: 08/15/21 9:29:00 ROLLER HAND, Duration: 4 doses or times, Stop date: Limited # of times Flumazenil No Notes: Memor ia 2-22 (Same as: l 15:29: Romazicon) Naloxone No Notes: Memoria 2-22 Same as l 15:29: Narcan Ondansetron No Notes: [place] timbo 2-22 (Same as: l 15:29: Zofran) MEDICATION WASTE Product Size: 4 mg Product Wasted: ___ mg Hydralazine No Notes: [place] timbo 2-22 (Same as: l 15:29: Apresoline ) Push over 5 minutes Labetalol No 10 mg, 2 [place] timbo 2-22 mL, Route: l 15:29: IVP, Drug form: INJ, Q5Min, Dosing Weight 74.091, kg, PRN Elevated BP, Start date: 08/15/21 9:29:00 ROLLER HAND, Duration: 5 doses or times, Stop date: 08/16/21 0:00:00 ROLLER HAND, 0 Acetaminoph No 1,000 mg, M emoria en 2-22 Route: PO, l 15:29: Drug form: [place] 00 TAB, ONCE, Dosing Weight 74.091, kg, PRN Pain Score 1-3, Start date: 08/15/21 9:29:00 ROLLER HAND Oxycodone No 2.5 mg, Memor ia 2-22 Route: PO, l 15:29: Drug form: LIQ, Q4H, Dosing Weight 74.091, kg, PRN Pain Score 4-6, Start date: 08/15/21 9:29:00 ROLLER HAND, Duration: 30 day, Stop date: 09/14/21 9:28:00 CDT Fentanyl No 25 Memoria 2- microgram, l 15:29: Route: IVP, Q5Min, Dosing Weight 74.091, kg, PRN Pain Score 4-6, Priority: Routine, Start date: 08/15/21 9:29:00 ROLLER HAND, Duration: 4 doses or times, Stop date: Limited # of times Flumazenil No Notes: [facility] 2-22 (Same as: l 15:29: Romazicon) Naloxone No Notes: [facility] 2-22 Same as l 15:29: Narcan Ondansetron No Notes: [facility] 2-22 (Same as: l 15:29: Zofran) MEDICATION WASTE Product Size: 4 mg Product Wasted: ___ mg Hydralazine No Notes: [facility] tim[facility] 2-22 (Same as: l 15:29: Apresoline ) Push over 5 minutes Labetalol No 10 mg, 2 [facility] tim[facility] 2-22 mL, Route: l 15:29: IVP, Drug form: INJ, Q5Min, Dosing Weight 74.091, kg, PRN Elevated BP, Start date: 08/15/21 9:29:00 ROLLER HAND, Duration: 5 doses or times, Stop date: 08/16/21 0:00:00 ROLLER HAND, 0 Acetaminoph No 1,000 mg, M emoria en 08-15 Route: PO, l 15:29: Drug form: [place] 00 TAB, ONCE, Dosing Weight 74.091, kg, PRN Pain Score 1-3, Start date: 08/15/21 9:29:00 ROLLER HAND Oxycodone No 2.5 mg, [facility] 2-22 Route: PO, l 15:29: Drug form: LIQ, Q4H, Dosing Weight 74.091, kg, PRN Pain Score 4-6, Start date: 08/15/21 9:29:00 ROLLER HAND, Duration: 30 day, Stop date: 09/14/21 9:28:00 CDT Fentanyl No 25 [facility] 2-22 microgram, l 15:29: Route: IVP, Q5Min, Dosing Weight 74.091, kg, PRN Pain Score 4-6, Priority: Routine, Start date: 08/15/21 9:29:00 ROLLER HAND, Duration: 4 doses or times, Stop date: Limited # of times Flumazenil No Notes: [facility] 2-22 (Same as: l 15:29: Romazicon) Naloxone No Notes: [facility] 2-22 Same as l 15:29: Narcan Ondansetron No Notes: [facility] tim[facility] 2-22 (Same as: l 15:29: Zofran) MEDICATION WASTE Product Size: 4 mg Product Wasted: ___ mg Hydralazine No Notes: [facility] tim[facility] 2-22 (Same as: l 15:29: Apresoline ) Push over 5 minutes Labetalol No 10 mg, 2 [facility] tim[facility] 2-22 mL, Route: l 15:29: IVP, Drug form: INJ, Q5Min, Dosing Weight 74.091, kg, PRN Elevated BP, Start date: 08/15/21 9:29:00 ROLLER HAND, Duration: 5 doses or times, Stop date: 08/16/21 0:00:00 ROLLER HAND, 0 Acetaminoph No 1,000 mg, M emoria en 08-15 Route: PO, l 15:29: Drug form: TAB, ONCE, Dosing Weight 74.091, kg, PRN Pain Score 1-3, Start date: 08/15/21 9:29:00 ROLLER HAND Oxycodone No 2.5 mg, [facility] 2-22 Route: PO, l 15:29: Drug form: [place] 00 LIQ, Q4H, Dosing Weight 74.091, kg, PRN Pain Score 4-6, Start date: 08/15/21 9:29:00 ROLLER HAND, Duration: 30 day, Stop date: 09/14/21 9:28:00 CDT Fentanyl No 25 [facility] 2-22 microgram, l 15:29: Route: IVP, Q5Min, Dosing Weight 74.091, kg, PRN Pain Score 4-6, Priority: Routine, Start date: 08/15/21 9:29:00 ROLLER HAND, Duration: 4 doses or times, Stop date: Limited # of times Flumazenil No Notes: [facility] 2-22 (Same as: l 15:29: Romazicon) Naloxone No Notes: [facility] 2-22 Same as l 15:29: Narcan Ondansetron No Notes: [facility] 2-22 (Same as: l 15:29: Zofran) MEDICATION WASTE Product Size: 4 mg Product Wasted: ___ mg Hydralazine No Notes: [facility] 2-22 (Same as: l 15:29: Apresoline ) Push over 5 minutes Labetalol No 10 mg, 2 [facility] tim[facility] 2-22 mL, Route: l 15:29: IVP, Drug form: INJ, Q5Min, Dosing Weight 74.091, kg, PRN Elevated BP, Start date: 08/15/21 9:29:00 ROLLER HAND, Duration: 5 doses or times, Stop date: 08/16/21 0:00:00 ROLLER HAND, 0 Acetaminoph No 1,000 mg, M em[facility] en 2-22 Route: PO, l 15:29: Drug form: [place] 00 TAB, ONCE, Dosing Weight 74.091, kg, PRN Pain Score 1-3, Start date: 08/15/21 9:29:00 ROLLER HAND Oxycodone No 2.5 mg, [facility] 2-22 Route: PO, l 15:29: Drug form: [place] 00 LIQ, Q4H, Dosing Weight 74.091, kg, PRN Pain Score 4-6, Start date: 08/15/21 9:29:00 ROLLER HAND, Duration: 30 day, Stop date: 09/14/21 9:28:00 CDT Fentanyl No 25 [facility] 2-22 microgram, l 15:29: Route: IVP, Q5Min, Dosing Weight 74.091, kg, PRN Pain Score 4-6, Priority: Routine, Start date: 08/15/21 9:29:00 ROLLER HAND, Duration: 4 doses or times, Stop date: Limited # of times Flumazenil No Notes: [facility] 2-22 (Same as: l 15:29: Romazicon) Naloxone No Notes: [facility] 2-22 Same as l 15:29: Narcan Ondansetron No Notes: [place] [facility] 2-22 (Same as: l 15:29: Zofran) MEDICATION WASTE Product Size: 4 mg Product Wasted: ___ mg Hydralazine No Notes: [place] [facility] 2-22 (Same as: l 15:29: Apresoline ) Push over 5 minutes Labetalol No 10 mg, 2 [facility] tim[place] 2-22 mL, Route: l 15:29: IVP, Drug form: INJ, Q5Min, Dosing Weight 74.091, kg, PRN Elevated BP, Start date: 08/15/21 9:29:00 ROLLER HAND, Duration: 5 doses or times, Stop date: 08/16/21 0:00:00 ROLLER HAND, 0 Acetaminoph No 1,000 mg, M emoria en 08-15 Route: PO, l 15:29: Drug form: [place] 00 TAB, ONCE, Dosing Weight 74.091, kg, PRN Pain Score 1-3, Start date: 08/15/21 9:29:00 ROLLER HAND Oxycodone No 2.5 mg, [facility] 2-22 Route: PO, l 15:29: Drug form: [place] 00 LIQ, Q4H, Dosing Weight 74.091, kg, PRN Pain Score 4-6, Start date: 08/15/21 9:29:00 ROLLER HAND, Duration: 30 day, Stop date: 09/14/21 9:28:00 CDT Fentanyl No 25 [facility] 2-22 microgram, l 15:29: Route: [place] 00 IVP, Q5Min, Dosing Weight 74.091, kg, PRN Pain Score 4-6, Priority: Routine, Start date: 08/15/21 9:29:00 ROLLER HAND, Duration: 4 doses or times, Stop date: Limited # of times Flumazenil No Notes: [facility] 2-22 (Same as: l 15:29: Romazicon) Naloxone No Notes: [facility] 2-22 Same as l 15:29: Narcan Ondansetron No Notes: [facility] 2-22 (Same as: l 15:29: Zofran) MEDICATION WASTE Product Size: 4 mg Product Wasted: ___ mg Hydralazine No Notes: [facility] 2-22 (Same as: l 15:29: Apresoline ) Push over 5 minutes Labetalol No 10 mg, 2 [facility] 2-22 mL, Route: l 15:29: IVP, Drug form: INJ, Q5Min, Dosing Weight 74.091, kg, PRN Elevated BP, Start date: 08/15/21 9:29:00 ROLLER HAND, Duration: 5 doses or times, Stop date: 08/16/21 0:00:00 ROLLER HAND, 0 Acetaminoph No 1,000 mg, M emoria en 08-15 Route: PO, l 15:29: Drug form: [place] 00 TAB, ONCE, Dosing Weight 74.091, kg, PRN Pain Score 1-3, Start date: 08/15/21 9:29:00 ROLLER HAND Oxycodone No 2.5 mg, [facility] 2-22 Route: PO, l 15:29: Drug form: LIQ, Q4H, Dosing Weight 74.091, kg, PRN Pain Score 4-6, Start date: 08/15/21 9:29:00 ROLLER HAND, Duration: 30 day, Stop date: 09/14/21 9:28:00 CDT Fentanyl No 25 [facility] 2-22 microgram, l 15:29: Route: IVP, Q5Min, Dosing Weight 74.091, kg, PRN Pain Score 4-6, Priority: Routine, Start date: 08/15/21 9:29:00 ROLLER HAND, Duration: 4 doses or times, Stop date: Limited # of times Flumazenil No Notes: [facility] 2-22 (Same as: l 15:29: Romazicon) Naloxone No Notes: [facility] 2-22 Same as l 15:29: Narcan Ondansetron No Notes: [facility] 2-22 (Same as: l 15:29: Zofran) MEDICATION WASTE Product Size: 4 mg Product Wasted: ___ mg Hydralazine No Notes: [facility] 2-22 (Same as: l 15:29: Apresoline ) Push over 5 minutes Labetalol No 10 mg, 2 [facility] 2-22 mL, Route: l 15:29: IVP, Drug form: INJ, Q5Min, Dosing Weight 74.091, kg, PRN Elevated BP, Start date: 08/15/21 9:29:00 ROLLER HAND, Duration: 5 doses or times, Stop date: 08/16/21 0:00:00 ROLLER HAND, 0 Acetaminoph No 1,000 mg, M emoria en 08-15 Route: PO, l 15:29: Drug form: TAB, ONCE, Dosing Weight 74.091, kg, PRN Pain Score 1-3, Start date: 08/15/21 9:29:00 ROLLER HAND Oxycodone No 2.5 mg, [facility] 2-22 Route: PO, l 15:29: Drug form: LIQ, Q4H, Dosing Weight 74.091, kg, PRN Pain Score 4-6, Start date: 08/15/21 9:29:00 ROLLER HAND, Duration: 30 day, Stop date: 09/14/21 9:28:00 CDT Fentanyl No 25 [facility] 2-22 microgram, l 15:29: Route: IVP, Q5Min, Dosing Weight 74.091, kg, PRN Pain Score 4-6, Priority: Routine, Start date: 08/15/21 9:29:00 ROLLER HAND, Duration: 4 doses or times, Stop date: Limited # of times Flumazenil No Notes: [facility] 2-22 (Same as: l 15:29: Romazicon) Naloxone No Notes: [facility] 2-22 Same as l 15:29: Narcan Ondansetron No Notes: [place] [facility] 2-22 (Same as: l 15:29: Zofran) MEDICATION WASTE Product Size: 4 mg Product Wasted: ___ mg Hydralazine No Notes: [place] [facility] 2-22 (Same as: l 15:29: Apresoline ) Push over 5 minutes Labetalol No 10 mg, 2 [facility] tim[facility] 2-22 mL, Route: l 15:29: IVP, Drug form: INJ, Q5Min, Dosing Weight 74.091, kg, PRN Elevated BP, Start date: 08/15/21 9:29:00 ROLLER HAND, Duration: 5 doses or times, Stop date: 08/16/21 0:00:00 ROLLER HAND, 0 Acetaminoph No 1,000 mg, M emoria en 08-15 Route: PO, l 15:29: Drug form: TAB, ONCE, Dosing Weight 74.091, kg, PRN Pain Score 1-3, Start date: 08/15/21 9:29:00 ROLLER HAND Oxycodone No 2.5 mg, [facility] 2-22 Route: PO, l 15:29: Drug form: [place] 00 LIQ, Q4H, Dosing Weight 74.091, kg, PRN Pain Score 4-6, Start date: 08/15/21 9:29:00 ROLLER HAND, Duration: 30 day, Stop date: 09/14/21 9:28:00 CDT Fentanyl 2021-0 No 25 [facility] 2-22 microgram, l 15:29: Route: IVP, Q5Min, Dosing Weight 74.091, kg, PRN Pain Score 4-6, Priority: Routine, Start date: 08/15/21 9:29:00 ROLLER HAND, Duration: 4 doses or times, Stop date: Limited # of times Flumazenil No Notes: [facility] 2-22 (Same as: l 15:29: Romazicon) Naloxone No Notes: [facility] 2-22 Same as l 15:29: Narcan Ondansetron No Notes: [place] [facility] 2-22 (Same as: l 15:29: Zofran) MEDICATION WASTE Product Size: 4 mg Product Wasted: ___ mg Hydralazine No Notes: [facility] 2-22 (Same as: l 15:29: Apresoline ) Push over 5 minutes Labetalol No 10 mg, 2 [facility] tim[facility] 2-22 mL, Route: l 15:29: IVP, Drug form: INJ, Q5Min, Dosing Weight 74.091, kg, PRN Elevated BP, Start date: 08/15/21 9:29:00 ROLLER HAND, Duration: 5 doses or times, Stop date: 08/16/21 0:00:00 ROLLER HAND, 0 Acetaminoph No 1,000 mg, M emoria en 08-15 Route: PO, l 15:29: Drug form: [place] 00 TAB, ONCE, Dosing Weight 74.091, kg, PRN Pain Score 1-3, Start date: 08/15/21 9:29:00 ROLLER HAND Oxycodone No 2.5 mg, [facility] -22 Route: PO, l 15:29: Drug form: [place] 00 LIQ, Q4H, Dosing Weight 74.091, kg, PRN Pain Score 4-6, Start date: 08/15/21 9:29:00 ROLLER HAND, Duration: 30 day, Stop date: 09/14/21 9:28:00 CDT Fentanyl 2021-0 No 25 [facility] 2-22 microgram, l 15:29: Route: IVP, Q5Min, Dosing Weight 74.091, kg, PRN Pain Score 4-6, Priority: Routine, Start date: 08/15/21 9:29:00 ROLLER HAND, Duration: 4 doses or times, Stop date: Limited # of times Flumazenil No Notes: [facility] 2-22 (Same as: l 15:29: Romazicon) Naloxone No Notes: [facility] 2-22 Same as l 15:29: Narcan Ondansetron No Notes: [facility] 2-22 (Same as: l 15:29: Zofran) MEDICATION WASTE Product Size: 4 mg Product Wasted: ___ mg Hydralazine No Notes: [place] [facility] 2-22 (Same as: l 15:29: Apresoline ) Push over 5 minutes Labetalol No 10 mg, 2 [facility] tim[facility] 2-22 mL, Route: l 15:29: IVP, Drug form: INJ, Q5Min, Dosing Weight 74.091, kg, PRN Elevated BP, Start date: 08/15/21 9:29:00 ROLLER HAND, Duration: 5 doses or times, Stop date: 08/16/21 0:00:00 ROLLER HAND, 0 Acetaminoph No 1,000 mg, M emoria en 08-15 Route: PO, l 15:29: Drug form: TAB, ONCE, Dosing Weight 74.091, kg, PRN Pain Score 1-3, Start date: 08/15/21 9:29:00 ROLLER HAND Oxycodone No 2.5 mg, [facility] 2-22 Route: PO, l 15:29: Drug form: LIQ, Q4H, Dosing Weight 74.091, kg, PRN Pain Score 4-6, Start date: 08/15/21 9:29:00 ROLLER HAND, Duration: 30 day, Stop date: 09/14/21 9:28:00 CDT Fentanyl No 25 [facility] 2-22 microgram, l 15:29: Route: IVP, Q5Min, Dosing Weight 74.091, kg, PRN Pain Score 4-6, Priority: Routine, Start date: 08/15/21 9:29:00 ROLLER HAND, Duration: 4 doses or times, Stop date: Limited # of times Flumazenil No Notes: [facility] 2-22 (Same as: l 15:29: Romazicon) Naloxone No Notes: [facility] 2-22 Same as l 15:29: Narcan Ondansetron No Notes: [facility] 2-22 (Same as: l 15:29: Zofran) MEDICATION WASTE Product Size: 4 mg Product Wasted: ___ mg Hydralazine No Notes: [place] [facility] 2-22 (Same as: l 15:29: Apresoline ) Push over 5 minutes Labetalol No 10 mg, 2 [facility] tim[place] 2-22 mL, Route: l 15:29: IVP, Drug form: INJ, Q5Min, Dosing Weight 74.091, kg, PRN Elevated BP, Start date: 08/15/21 9:29:00 ROLLER HAND, Duration: 5 doses or times, Stop date: 08/16/21 0:00:00 ROLLER HAND, 0 Acetaminoph No 1,000 mg, M emoria en 08-15 Route: PO, l 15:29: Drug form: TAB, ONCE, Dosing Weight 74.091, kg, PRN Pain Score 1-3, Start date: 08/15/21 9:29:00 ROLLER HAND Oxycodone No 2.5 mg, [facility] 2-22 Route: PO, l 15:29: Drug form: LIQ, Q4H, Dosing Weight 74.091, kg, PRN Pain Score 4-6, Start date: 08/15/21 9:29:00 ROLLER HAND, Duration: 30 day, Stop date: 09/14/21 9:28:00 CDT Fentanyl 2021-0 No 25 [facility] 2-22 microgram, l 15:29: Route: [place] 00 IVP, Q5Min, Dosing Weight 74.091, kg, PRN Pain Score 4-6, Priority: Routine, Start date: 08/15/21 9:29:00 ROLLER HAND, Duration: 4 doses or times, Stop date: Limited # of times Flumazenil No Notes: [facility] 2-22 (Same as: l 15:29: Romazicon) Naloxone No Notes: [facility] 2-22 Same as l 15:29: Narcan Ondansetron No Notes: [place] [facility] 2-22 (Same as: l 15:29: Zofran) MEDICATION WASTE Product Size: 4 mg Product Wasted: ___ mg Hydralazine No Notes: [facility] tim[place] 2-22 (Same as: l 15:29: Apresoline ) Push over 5 minutes Labetalol No 10 mg, 2 [facility] tim[place] 2-22 mL, Route: l 15:29: IVP, Drug form: INJ, Q5Min, Dosing Weight 74.091, kg, PRN Elevated BP, Start date: 08/15/21 9:29:00 ROLLER HAND, Duration: 5 doses or times, Stop date: 08/16/21 0:00:00 ROLLER HAND, 0 Acetaminoph No 1,000 mg, M emoria en 08-15 Route: PO, l 15:29: Drug form: TAB, ONCE, Dosing Weight 74.091, kg, PRN Pain Score 1-3, Start date: 08/15/21 9:29:00 ROLLER HAND Oxycodone No 2.5 mg, [facility] - Route: PO, l 15:29: Drug form: LIQ, Q4H, Dosing Weight 74.091, kg, PRN Pain Score 4-6, Start date: 08/15/21 9:29:00 ROLLER HAND, Duration: 30 day, Stop date: 09/14/21 9:28:00 CDT Fentanyl 2021-0 No 25 [facility] 2-22 microgram, l 15:29: Route: [place] 00 IVP, Q5Min, Dosing Weight 74.091, kg, PRN Pain Score 4-6, Priority: Routine, Start date: 08/15/21 9:29:00 ROLLER HAND, Duration: 4 doses or times, Stop date: Limited # of times Flumazenil No Notes: [facility] 2-22 (Same as: l 15:29: Romazicon) Naloxone No Notes: [facility] 2-22 Same as l 15:29: Narcan Ondansetron No Notes: [place] tim[place] 2-22 (Same as: l 15:29: Zofran) MEDICATION WASTE Product Size: 4 mg Product Wasted: ___ mg Hydralazine No Notes: [place] [facility] 2-22 (Same as: l 15:29: Apresoline ) Push over 5 minutes Labetalol No 10 mg, 2 [facility] tim[place] 2-22 mL, Route: l 15:29: IVP, Drug form: INJ, Q5Min, Dosing Weight 74.091, kg, PRN Elevated BP, Start date: 08/15/21 9:29:00 ROLLER HAND, Duration: 5 doses or times, Stop date: 08/16/21 0:00:00 ROLLER HAND, 0 Acetaminoph No 1,000 mg, M emoria en 08-15 Route: PO, l 15:29: Drug form: TAB, ONCE, Dosing Weight 74.091, kg, PRN Pain Score 1-3, Start date: 08/15/21 9:29:00 ROLLER HAND Oxycodone No 2.5 mg, [facility] 2-22 Route: PO, l 15:29: Drug form: LIQ, Q4H, Dosing Weight 74.091, kg, PRN Pain Score 4-6, Start date: 08/15/21 9:29:00 ROLLER HAND, Duration: 30 day, Stop date: 09/14/21 9:28:00 CDT Fentanyl 2021-0 No 25 [facility] 2-22 microgram, l 15:29: Route: IVP, Q5Min, Dosing Weight 74.091, kg, PRN Pain Score 4-6, Priority: Routine, Start date: 08/15/21 9:29:00 ROLLER HAND, Duration: 4 doses or times, Stop date: Limited # of times Flumazenil No Notes: [facility] 2-22 (Same as: l 15:29: Romazicon) Naloxone No Notes: [facility] 2-22 Same as l 15:29: Narcan Ondansetron No Notes: [place] 2-22 (Same as: l 15:29: Zofran) MEDICATION WASTE Product Size: 4 mg Product Wasted: ___ mg Hydralazine No Notes: [facility] 2-22 (Same as: l 15:29: Apresoline ) Push over 5 minutes Labetalol No 10 mg, 2 [facility] tim[facility] 2-22 mL, Route: l 15:29: IVP, Drug form: INJ, Q5Min, Dosing Weight 74.091, kg, PRN Elevated BP, Start date: 08/15/21 9:29:00 ROLLER HAND, Duration: 5 doses or times, Stop date: 08/16/21 0:00:00 ROLLER HAND, 0 Acetaminoph No 1,000 mg, M emoria en 08-15 Route: PO, l 15:29: Drug form: TAB, ONCE, Dosing Weight 74.091, kg, PRN Pain Score 1-3, Start date: 08/15/21 9:29:00 ROLLER HAND Oxycodone No 2.5 mg, [facility] 2-22 Route: PO, l 15:29: Drug form: LIQ, Q4H, Dosing Weight 74.091, kg, PRN Pain Score 4-6, Start date: 08/15/21 9:29:00 ROLLER HAND, Duration: 30 day, Stop date: 09/14/21 9:28:00 CDT Fentanyl 2022-0 No 25 [facility] 2-22 microgram, l 15:29: Route: IVP, Q5Min, Dosing Weight 74.091, kg, PRN Pain Score 4-6, Priority: Routine, Start date: 08/15/21 9:29:00 ROLLER HAND, Duration: 4 doses or times, Stop date: Limited # of times Flumazenil No Notes: [facility] 2-22 (Same as: l 15:29: Romazicon) Naloxone No Notes: [facility] 2-22 Same as l 15:29: Narcan Ondansetron No Notes: [place] [facility] 2-22 (Same as: l 15:29: Zofran) MEDICATION WASTE Product Size: 4 mg Product Wasted: ___ mg Hydralazine No Notes: [facility] 2-22 (Same as: l 15:29: Apresoline ) Push over 5 minutes Labetalol No 10 mg, 2 [facility] tim[facility] 2-22 mL, Route: l 15:29: IVP, Drug form: INJ, Q5Min, Dosing Weight 74.091, kg, PRN Elevated BP, Start date: 08/15/21 9:29:00 ROLLER HAND, Duration: 5 doses or times, Stop date: 08/16/21 0:00:00 ROLLER HAND, 0 Acetaminoph No 1,000 mg, M emoria en 08-15 Route: PO, l 15:29: Drug form: TAB, ONCE, Dosing Weight 74.091, kg, PRN Pain Score 1-3, Start date: 08/15/21 9:29:00 ROLLER HAND Oxycodone No 2.5 mg, [facility] 2-22 Route: PO, l 15:29: Drug form: LIQ, Q4H, Dosing Weight 74.091, kg, PRN Pain Score 4-6, Start date: 08/15/21 9:29:00 ROLLER HAND, Duration: 30 day, Stop date: 09/14/21 9:28:00 CDT Fentanyl 0 No 25 [facility] 2-22 microgram, l 15:29: Route: IVP, Q5Min, Dosing Weight 74.091, kg, PRN Pain Score 4-6, Priority: Routine, Start date: 08/15/21 9:29:00 ROLLER HAND, Duration: 4 doses or times, Stop date: Limited # of times Flumazenil No Notes: [facility] 2-22 (Same as: l 15:29: Romazicon) Naloxone No Notes: [facility] 2-22 Same as l 15:29: Narcan Ondansetron No Notes: [place] [facility] 2-22 (Same as: l 15:29: Zofran) MEDICATION WASTE Product Size: 4 mg Product Wasted: ___ mg Hydralazine No Notes: [facility] 2-22 (Same as: l 15:29: Apresoline ) Push over 5 minutes Labetalol No 10 mg, 2 [facility] tim[facility] 2-22 mL, Route: l 15:29: IVP, Drug form: INJ, Q5Min, Dosing Weight 74.091, kg, PRN Elevated BP, Start date: 08/15/21 9:29:00 ROLLER HAND, Duration: 5 doses or times, Stop date: 08/16/21 0:00:00 ROLLER HAND, 0 Acetaminoph No 1,000 mg, M emoria en 08-15 Route: PO, l 15:29: Drug form: TAB, ONCE, Dosing Weight 74.091, kg, PRN Pain Score 1-3, Start date: 08/15/21 9:29:00 ROLLER HAND Oxycodone No 2.5 mg, [facility] 2-22 Route: PO, l 15:29: Drug form: LIQ, Q4H, Dosing Weight 74.091, kg, PRN Pain Score 4-6, Start date: 08/15/21 9:29:00 ROLLER HAND, Duration: 30 day, Stop date: 09/14/21 9:28:00 CDT Fentanyl No 25 [facility] 2-22 microgram, l 15:29: Route: IVP, Q5Min, Dosing Weight 74.091, kg, PRN Pain Score 4-6, Priority: Routine, Start date: 08/15/21 9:29:00 ROLLER HAND, Duration: 4 doses or times, Stop date: Limited # of times Flumazenil No Notes: [facility] 2-22 (Same as: l 15:29: Romazicon) Naloxone No Notes: [facility] 2-22 Same as l 15:29: Narcan Ondansetron No Notes: [facility] 2-22 (Same as: l 15:29: Zofran) MEDICATION WASTE Product Size: 4 mg Product Wasted: ___ mg Hydralazine No Notes: [facility] 2-22 (Same as: l 15:29: Apresoline ) Push over 5 minutes Labetalol No 10 mg, 2 [facility] tim[facility] 2-22 mL, Route: l 15:29: IVP, Drug form: INJ, Q5Min, Dosing Weight 74.091, kg, PRN Elevated BP, Start date: 08/15/21 9:29:00 ROLLER HAND, Duration: 5 doses or times, Stop date: 08/16/21 0:00:00 ROLLER HAND, 0 Acetaminoph No 1,000 mg, M emoria en 08-15 Route: PO, l 15:29: Drug form: TAB, ONCE, Dosing Weight 74.091, kg, PRN Pain Score 1-3, Start date: 08/15/21 9:29:00 ROLLER HAND Oxycodone No 2.5 mg, [facility] 2-22 Route: PO, l 15:29: Drug form: LIQ, Q4H, Dosing Weight 74.091, kg, PRN Pain Score 4-6, Start date: 08/15/21 9:29:00 ROLLER HAND, Duration: 30 day, Stop date: 09/14/21 9:28:00 CDT Fentanyl No 25 [facility] 2-22 microgram, l 15:29: Route: IVP, Q5Min, Dosing Weight 74.091, kg, PRN Pain Score 4-6, Priority: Routine, Start date: 08/15/21 9:29:00 ROLLER HAND, Duration: 4 doses or times, Stop date: Limited # of times Flumazenil No Notes: [facility] 2-22 (Same as: l 15:29: Romazicon) Naloxone No Notes: [facility] 2-22 Same as l 15:29: Narcan Ondansetron No Notes: [place] [facility] 2-22 (Same as: l 15:29: Zofran) MEDICATION WASTE Product Size: 4 mg Product Wasted: ___ mg Hydralazine No Notes: [facility] 2-22 (Same as: l 15:29: Apresoline ) Push over 5 minutes Labetalol No 10 mg, 2 [facility] tim[facility] 2-22 mL, Route: l 15:29: IVP, Drug form: INJ, Q5Min, Dosing Weight 74.091, kg, PRN Elevated BP, Start date: 08/15/21 9:29:00 ROLLER HAND, Duration: 5 doses or times, Stop date: 08/16/21 0:00:00 ROLLER HAND, 0 Acetaminoph No 1,000 mg, M em[facility] en 08-15 Route: PO, l 15:29: Drug form: TAB, ONCE, Dosing Weight 74.091, kg, PRN Pain Score 1-3, Start date: 08/15/21 9:29:00 ROLLER HAND Oxycodone No 2.5 mg, [facility] 08-15 Route: PO, l 15:29: Drug form: LIQ, Q4H, Dosing Weight 74.091, kg, PRN Pain Score 4-6, Start date: 08/15/21 9:29:00 ROLLER HAND, Duration: 30 day, Stop date: 09/14/21 9:28:00 CDT Fentanyl 2021-0 No 25 [facility] 2-22 microgram, l 15:29: Route: IVP, Q5Min, Dosing Weight 74.091, kg, PRN Pain Score 4-6, Priority: Routine, Start date: 08/15/21 9:29:00 ROLLER HAND, Duration: 4 doses or times, Stop date: Limited # of times Flumazenil No Notes: [facility] - (Same as: l 15:29: Romazicon) Naloxone No Notes: [facility] 2- Same as l 15:29: Narcan Ondansetron No Notes: [facility] tim[facility] 08-15 (Same as: l 15:29: Zofran) MEDICATION WASTE Product Size: 4 mg Product Wasted: ___ mg Hydralazine No Notes: [facility] - (Same as: l 15:29: Apresoline ) Push over 5 minutes Labetalol No 10 mg, 2 [facility] tim[facility] 2-22 mL, Route: l 15:29: IVP, Drug form: INJ, Q5Min, Dosing Weight 74.091, kg, PRN Elevated BP, Start date: 08/15/21 9:29:00 ROLLER HAND, Duration: 5 doses or times, Stop date: 08/16/21 0:00:00 ROLLER HAND, 0 Acetaminoph No 1,000 mg, M emoria en 08-15 Route: PO, l 15:29: Drug form: [place] 00 TAB, ONCE, Dosing Weight 74.091, kg, PRN Pain Score 1-3, Start date: 08/15/21 9:29:00 ROLLER HAND Oxycodone No 2.5 mg, Memor ia 08-15 Route: PO, l 15:29: Drug form: LIQ, Q4H, Dosing Weight 74.091, kg, PRN Pain Score 4-6, Start date: 08/15/21 9:29:00 ROLLER HAND, Duration: 30 day, Stop date: 09/14/21 9:28:00 CDT Fentanyl 2021-0 No 25 Memoria 2- microgram, l 15:29: Route: IVP, Q5Min, Dosing Weight 74.091, kg, PRN Pain Score 4-6, Priority: Routine, Start date: 08/15/21 9:29:00 ROLLER HAND, Duration: 4 doses or times, Stop date: Limited # of times Flumazenil No Notes: Memor ia 2- (Same as: l 15:29: Romazicon) Naloxone No Notes: Memoria 2- Same as l 15:29: Narcan Ondansetron No Notes: Sherman timbo - (Same as: l 15:29: Zofran) MEDICATION WASTE Product Size: 4 mg Product Wasted: ___ mg Hydralazine No Notes: Sherman timbo 2- (Same as: l 15:29: Apresoline ) Push over 5 minutes Labetalol No 10 mg, 2 Sherman timbo 2-22 mL, Route: l 15:29: IVP, Drug form: INJ, Q5Min, Dosing Weight 74.091, kg, PRN Elevated BP, Start date: 08/15/21 9:29:00 ROLLER HAND, Duration: 5 doses or times, Stop date: 08/16/21 0:00:00 ROLLER HAND, 0 Acetaminoph No 1,000 mg, M emoria en 08-15 Route: PO, l 15:29: Drug form: [place] 00 TAB, ONCE, Dosing Weight 74.091, kg, PRN Pain Score 1-3, Start date: 08/15/21 9:29:00 ROLLER HAND Oxycodone No 2.5 mg, Memor ia 08-15 Route: PO, l 15:29: Drug form: Ran 00 LIQ, Q4H, Dosing Weight 74.091, kg, PRN Pain Score 4-6, Start date: 08/15/21 9:29:00 ROLLER HAND, Duration: 30 day, Stop date: 09/14/21 9:28:00 CDT Fentanyl No 25 Memoria 2- microgram, l 15:29: Route: [place] 00 IVP, Q5Min, Dosing Weight 74.091, kg, PRN Pain Score 4-6, Priority: Routine, Start date: 08/15/21 9:29:00 ROLLER HAND, Duration: 4 doses or times, Stop date: Limited # of times Flumazenil No Notes: Memor ia 2-22 (Same as: l 15:29: Romazicon) Naloxone No Notes: Memoria 2-22 Same as l 15:29: Narcan Ondansetron No Notes: Sherman timbo 2-22 (Same as: l 15:29: Zofran) MEDICATION WASTE Product Size: 4 mg Product Wasted: ___ mg Hydralazine No Notes: Sherman timbo 2-22 (Same as: l 15:29: Apresoline ) Push over 5 minutes Labetalol No 10 mg, 2 Sherman timbo 2-22 mL, Route: l 15:29: IVP, Drug form: INJ, Q5Min, Dosing Weight 74.091, kg, PRN Elevated BP, Start date: 08/15/21 9:29:00 ROLLER HAND, Duration: 5 doses or times, Stop date: 08/16/21 0:00:00 ROLLER HAND, 0 Acetaminoph No 1,000 mg, M emoria en 08-15 Route: PO, l 15:29: Drug form: [place] 00 TAB, ONCE, Dosing Weight 74.091, kg, PRN Pain Score 1-3, Start date: 08/15/21 9:29:00 ROLLER HAND Oxycodone No 2.5 mg, Memor ia - Route: PO, l 15:29: Drug form: [place] 00 LIQ, Q4H, Dosing Weight 74.091, kg, PRN Pain Score 4-6, Start date: 08/15/21 9:29:00 ROLLER HAND, Duration: 30 day, Stop date: 09/14/21 9:28:00 CDT Fentanyl 2021-0 No 25 Memoria 2-22 microgram, l 15:29: Route: [place] 00 IVP, Q5Min, Dosing Weight 74.091, kg, PRN Pain Score 4-6, Priority: Routine, Start date: 08/15/21 9:29:00 ROLLER HAND, Duration: 4 doses or times, Stop date: Limited # of times Flumazenil No Notes: Memor ia 2-22 (Same as: l 15:29: Romazicon) Naloxone No Notes: Memoria 2-22 Same as l 15:29: Narcan Ondansetron No Notes: [place] timbo 2-22 (Same as: l 15:29: Zofran) MEDICATION WASTE Product Size: 4 mg Product Wasted: ___ mg Hydralazine No Notes: [place] timbo 2-22 (Same as: l 15:29: Apresoline ) Push over 5 minutes Labetalol No 10 mg, 2 Sherman timbo 2-22 mL, Route: l 15:29: IVP, Drug form: INJ, Q5Min, Dosing Weight 74.091, kg, PRN Elevated BP, Start date: 08/15/21 9:29:00 ROLLER HAND, Duration: 5 doses or times, Stop date: 08/16/21 0:00:00 ROLLER HAND, 0 Acetaminoph No 1,000 mg, M emoria en 08-15 Route: PO, l 15:29: Drug form: TAB, ONCE, Dosing Weight 74.091, kg, PRN Pain Score 1-3, Start date: 08/15/21 9:29:00 ROLLER HAND Oxycodone No 2.5 mg, Memor ia 08-15 Route: PO, l 15:29: Drug form: LIQ, Q4H, Dosing Weight 74.091, kg, PRN Pain Score 4-6, Start date: 08/15/21 9:29:00 ROLLER HAND, Duration: 30 day, Stop date: 09/14/21 9:28:00 CDT Fentanyl No 25 Memoria 2-22 microgram, l 15:29: Route: IVP, Q5Min, Dosing Weight 74.091, kg, PRN Pain Score 4-6, Priority: Routine, Start date: 08/15/21 9:29:00 ROLLER HAND, Duration: 4 doses or times, Stop date: Limited # of times Flumazenil No Notes: Memor ia 2-22 (Same as: l 15:29: Romazicon) Naloxone No Notes: Memoria 2-22 Same as l 15:29: Narcan Ondansetron No Notes: [place] timbo 2-22 (Same as: l 15:29: Zofran) MEDICATION WASTE Product Size: 4 mg Product Wasted: ___ mg Hydralazine No Notes: [place] timbo 2-22 (Same as: l 15:29: Apresoline ) Push over 5 minutes Labetalol No 10 mg, 2 [place] timbo 2-22 mL, Route: l 15:29: IVP, Drug form: INJ, Q5Min, Dosing Weight 74.091, kg, PRN Elevated BP, Start date: 08/15/21 9:29:00 ROLLER HAND, Duration: 5 doses or times, Stop date: 08/16/21 0:00:00 ROLLER HAND, 0 Acetaminoph No 1,000 mg, M emoria en 08-15 Route: PO, l 15:29: Drug form: TAB, ONCE, Dosing Weight 74.091, kg, PRN Pain Score 1-3, Start date: 08/15/21 9:29:00 ROLLER HAND Oxycodone No 2.5 mg, Memor ia 08-15 Route: PO, l 15:29: Drug form: LIQ, Q4H, Dosing Weight 74.091, kg, PRN Pain Score 4-6, Start date: 08/15/21 9:29:00 ROLLER HAND, Duration: 30 day, Stop date: 09/14/21 9:28:00 CDT Fentanyl No 25 Memoria 2- microgram, l 15:29: Route: IVP, Q5Min, Dosing Weight 74.091, kg, PRN Pain Score 4-6, Priority: Routine, Start date: 08/15/21 9:29:00 ROLLER HAND, Duration: 4 doses or times, Stop date: Limited # of times Flumazenil No Notes: Memor ia 2-22 (Same as: l 15:29: Romazicon) Naloxone No Notes: Memoria 2-22 Same as l 15:29: Narcan Ondansetron No Notes: [place] timbo - (Same as: l 15:29: Zofran) MEDICATION WASTE Product Size: 4 mg Product Wasted: ___ mg Hydralazine No Notes: [place] timbo -22 (Same as: l 15:29: Apresoline ) Push over 5 minutes Labetalol No 10 mg, 2 [place] timbo 2-22 mL, Route: l 15:29: IVP, Drug form: INJ, Q5Min, Dosing Weight 74.091, kg, PRN Elevated BP, Start date: 08/15/21 9:29:00 ROLLER HAND, Duration: 5 doses or times, Stop date: 08/16/21 0:00:00 ROLLER HAND, 0 Acetaminoph No 1,000 mg, M emoria en 08-15 Route: PO, l 15:29: Drug form: TAB, ONCE, Dosing Weight 74.091, kg, PRN Pain Score 1-3, Start date: 08/15/21 9:29:00 ROLLER HAND Oxycodone No 2.5 mg, Memor ia 08-15 Route: PO, l 15:29: Drug form: LIQ, Q4H, Dosing Weight 74.091, kg, PRN Pain Score 4-6, Start date: 08/15/21 9:29:00 ROLLER HAND, Duration: 30 day, Stop date: 09/14/21 9:28:00 CDT Fentanyl No 25 Memoria 2- microgram, l 15:29: Route: IVP, Q5Min, Dosing Weight 74.091, kg, PRN Pain Score 4-6, Priority: Routine, Start date: 08/15/21 9:29:00 ROLLER HAND, Duration: 4 doses or times, Stop date: Limited # of times Flumazenil No Notes: Memor ia - (Same as: l 15:29: Romazicon) Naloxone No Notes: Memoria 2- Same as l 15:29: Narcan Ondansetron No Notes: [place] timbo -22 (Same as: l 15:29: Zofran) MEDICATION WASTE Product Size: 4 mg Product Wasted: ___ mg Hydralazine No Notes: [place] timbo -22 (Same as: l 15:29: Apresoline ) Push over 5 minutes Labetalol No 10 mg, 2 [place] timbo 2-22 mL, Route: l 15:29: IVP, Drug form: INJ, Q5Min, Dosing Weight 74.091, kg, PRN Elevated BP, Start date: 08/15/21 9:29:00 ROLLER HAND, Duration: 5 doses or times, Stop date: 08/16/21 0:00:00 ROLLER HAND, 0 Acetaminoph No 1,000 mg, M emoria en 08-15 Route: PO, l 15:29: Drug form: TAB, ONCE, Dosing Weight 74.091, kg, PRN Pain Score 1-3, Start date: 08/15/21 9:29:00 ROLLER HAND Oxycodone No 2.5 mg, Memor ia 08-15 Route: PO, l 15:29: Drug form: LIQ, Q4H, Dosing Weight 74.091, kg, PRN Pain Score 4-6, Start date: 08/15/21 9:29:00 ROLLER HAND, Duration: 30 day, Stop date: 09/14/21 9:28:00 CDT Fentanyl 2021-0 No 25 Memoria 2- microgram, l 15:29: Route: IVP, Q5Min, Dosing Weight 74.091, kg, PRN Pain Score 4-6, Priority: Routine, Start date: 08/15/21 9:29:00 ROLLER HAND, Duration: 4 doses or times, Stop date: Limited # of times Flumazenil No Notes: Memor ia - (Same as: l 15:29: Romazicon) Naloxone 2022-0 No Notes: Memoria 2-22 Same as l 15:29: Narcan Ondansetron No Notes: [place] timbo 2-22 (Same as: l 15:29: Zofran) MEDICATION WASTE Product Size: 4 mg Product Wasted: ___ mg Hydralazine No Notes: [place] timbo 2-22 (Same as: l 15:29: Apresoline ) Push over 5 minutes Labetalol No 10 mg, 2 [place] timbo 2-22 mL, Route: l 15:29: IVP, Drug form: INJ, Q5Min, Dosing Weight 74.091, kg, PRN Elevated BP, Start date: 08/15/21 9:29:00 ROLLER HAND, Duration: 5 doses or times, Stop date: 08/16/21 0:00:00 ROLLER HAND, 0 Acetaminoph No 1,000 mg, M emoria en 08-15 Route: PO, l 15:29: Drug form: [place] 00 TAB, ONCE, Dosing Weight 74.091, kg, PRN Pain Score 1-3, Start date: 08/15/21 9:29:00 ROLLER HAND Oxycodone No 2.5 mg, Memor ia 08-15 Route: PO, l 15:29: Drug form: LIQ, Q4H, Dosing Weight 74.091, kg, PRN Pain Score 4-6, Start date: 08/15/21 9:29:00 ROLLER HAND, Duration: 30 day, Stop date: 09/14/21 9:28:00 CDT Fentanyl No 25 Memoria 2-22 microgram, l 15:29: Route: IVP, Q5Min, Dosing Weight 74.091, kg, PRN Pain Score 4-6, Priority: Routine, Start date: 08/15/21 9:29:00 ROLLER HAND, Duration: 4 doses or times, Stop date: Limited # of times Flumazenil No Notes: Memor ia 2-22 (Same as: l 15:29: Romazicon) Naloxone No Notes: Memoria 2-22 Same as l 15:29: Narcan Ondansetron No Notes: [place] timbo 2-22 (Same as: l 15:29: Zofran) MEDICATION WASTE Product Size: 4 mg Product Wasted: ___ mg Ondansetron No Notes: [place] tim[place] 2-22 (Same as: l 15:29: Zofran) MEDICATION WASTE Product Size: 4 mg Product Wasted: ___ mg Hydralazine No Notes: [place] tim[place] 2-22 (Same as: l 15:29: Apresoline ) Push over 5 minutes Labetalol No 10 mg, 2 [place] timbo 2-22 mL, Route: l 15:29: IVP, Drug form: INJ, Q5Min, Dosing Weight 74.091, kg, PRN Elevated BP, Start date: 08/15/21 9:29:00 ROLLER HAND, Duration: 5 doses or times, Stop date: 08/16/21 0:00:00 ROLLER HAND, 0 Acetaminoph No 1,000 mg, M emoria en 08-15 Route: PO, l 15:29: Drug form: TAB, ONCE, Dosing Weight 74.091, kg, PRN Pain Score 1-3, Start date: 08/15/21 9:29:00 ROLLER HAND Oxycodone No 2.5 mg, Memor ia 08-15 Route: PO, l 15:29: Drug form: LIQ, Q4H, Dosing Weight 74.091, kg, PRN Pain Score 4-6, Start date: 08/15/21 9:29:00 ROLLER HAND, Duration: 30 day, Stop date: 09/14/21 9:28:00 CDT Fentanyl 2021-0 No 25 Memoria 2-22 microgram, l 15:29: Route: IVP, Q5Min, Dosing Weight 74.091, kg, PRN Pain Score 4-6, Priority: Routine, Start date: 08/15/21 9:29:00 ROLLER HAND, Duration: 4 doses or times, Stop date: Limited # of times Flumazenil No Notes: Memor ia 08-15 (Same as: l 15:29: Romazicon) [place] 00 Naloxone No Notes: Memoria 2 Same as l 15:29: Narcan [place] 00 Lactated No Route: IV, Mem oria Ringers 2-22 Total l Injection 14:58: Volume: Hermila nn IV (ANES) 00 1,000, 1000 mL Start date: 08/15/21 8:58:00 ROLLER HAND, Stop date: 08/15/21 9:58:00 ROLLER HAND Lactated No Route: IV, Mem oria Ringers 2-22 Total l Injection 14:58: Volume: Hermila nn IV (ANES) 00 1,000, 1000 mL Start date: 08/15/21 8:58:00 ROLLER HAND, Stop date: 08/15/21 9:58:00 ROLLER HAND Lactated No Route: IV, Mem oria Ringers 2-22 Total l Injection 14:58: Volume: Hermila nn IV (ANES) 00 1,000, 1000 mL Start date: 08/15/21 8:58:00 ROLLER HAND, Stop date: 08/15/21 9:58:00 ROLLER HAND Lactated No Route: IV, Mem oria Ringers 2-22 Total l Injection 14:58: Volume: Hermila nn IV (ANES) 00 1,000, 1000 mL Start date: 08/15/21 8:58:00 ROLLER HAND, Stop date: 08/15/21 9:58:00 ROLLER HAND Lactated No Route: IV, Mem oria Ringers 2-22 Total l Injection 14:58: Volume: Hermila nn IV (ANES) 00 1,000, 1000 mL Start date: 08/15/21 8:58:00 ROLLER HAND, Stop date: 08/15/21 9:58:00 ROLLER HAND Lactated No Route: IV, Mem oria Ringers 2-22 Total l Injection 14:58: Volume: Hermila nn IV (ANES) 00 1,000, 1000 mL Start date: 08/15/21 8:58:00 ROLLER HAND, Stop date: 08/15/21 9:58:00 ROLLER HAND Lactated No Route: IV, Mem oria Ringers 2-22 Total l Injection 14:58: Volume: Hermila nn IV (ANES) 00 1,000, 1000 mL Start date: 08/15/21 8:58:00 ROLLER HAND, Stop date: 08/15/21 9:58:00 ROLLER HAND Lactated 2-0 No Route: IV, Mem oria Ringers 2-22 Total l Injection 14:58: Volume: Hermila nn IV (ANES) 00 1,000, 1000 mL Start date: 08/15/21 8:58:00 ROLLER HAND, Stop date: 08/15/21 9:58:00 ROLLER HAND Lactated 2-0 No Route: IV, Mem oria Ringers 2-22 Total l Injection 14:58: Volume: Hermila nn IV (ANES) 00 1,000, 1000 mL Start date: 08/15/21 8:58:00 ROLLER HAND, Stop date: 08/15/21 9:58:00 ROLLER HAND Lactated 2021-0 No Route: IV, Mem oria Ringers 2-22 Total l Injection 14:58: Volume: Hermila nn IV (ANES) 00 1,000, 1000 mL Start date: 08/15/21 8:58:00 ROLLER HAND, Stop date: 08/15/21 9:58:00 ROLLER HAND Lactated 2021-0 No Route: IV, Mem oria Ringers 2-22 Total l Injection 14:58: Volume: Hermila nn IV (ANES) 00 1,000, 1000 mL Start date: 08/15/21 8:58:00 ROLLER HAND, Stop date: 08/15/21 9:58:00 ROLLER HAND Lactated 2-0 No Route: IV, Mem oria Ringers 2-22 Total l Injection 14:58: Volume: Hermila nn IV (ANES) 00 1,000, 1000 mL Start date: 08/15/21 8:58:00 ROLLER HAND, Stop date: 08/15/21 9:58:00 ROLLER HAND Lactated 2021-0 No Route: IV, Mem oria Ringers 2-22 Total l Injection 14:58: Volume: Hermila nn IV (ANES) 00 1,000, 1000 mL Start date: 08/15/21 8:58:00 ROLLER HAND, Stop date: 08/15/21 9:58:00 ROLLER HAND Lactated 2021-0 No Route: IV, Mem o[facility] Ringers 2-22 Total l Injection 14:58: Volume: Hermila nn IV (ANES) 00 1,000, 1000 mL Start date: 08/15/21 8:58:00 ROLLER HAND, Stop date: 08/15/21 9:58:00 ROLLER HAND Lactated 2021-0 No Route: IV, Mem oria Ringers 2-22 Total l Injection 14:58: Volume: Hermila nn IV (ANES) 00 1,000, 1000 mL Start date: 08/15/21 8:58:00 ROLLER HAND, Stop date: 08/15/21 9:58:00 ROLLER HAND Lactated 2021-0 No Route: IV, Mem oria Ringers 2-22 Total l Injection 14:58: Volume: Hermila nn IV (ANES) 00 1,000, 1000 mL Start date: 08/15/21 8:58:00 ROLLER HAND, Stop date: 08/15/21 9:58:00 ROLLER HAND Lactated 2021-0 No Route: IV, Mem oria Ringers 2-22 Total l Injection 14:58: Volume: Hermila nn IV (ANES) 00 1,000, 1000 mL Start date: 08/15/21 8:58:00 ROLLER HAND, Stop date: 08/15/21 9:58:00 ROLLER HAND Lactated 2021-0 No Route: IV, Mem oria Ringers 2-22 Total l Injection 14:58: Volume: Hermila nn IV (ANES) 00 1,000, 1000 mL Start date: 08/15/21 8:58:00 ROLLER HAND, Stop date: 08/15/21 9:58:00 ROLLER HAND Lactated 2021-0 No Route: IV, Mem oria Ringers 2-22 Total l Injection 14:58: Volume: Hermila nn IV (ANES) 00 1,000, 1000 mL Start date: 08/15/21 8:58:00 ROLLER HAND, Stop date: 08/15/21 9:58:00 ROLLER HAND Lactated 2021-0 No Route: IV, Mem oria Ringers 2-22 Total l Injection 14:58: Volume: Hermila nn IV (ANES) 00 1,000, 1000 mL Start date: 08/15/21 8:58:00 ROLLER HAND, Stop date: 08/15/21 9:58:00 ROLLER HAND Lactated 2021-0 No Route: IV, Mem oria Ringers 2-22 Total l Injection 14:58: Volume: Hermila nn IV (ANES) 00 1,000, 1000 mL Start date: 08/15/21 8:58:00 ROLLER HAND, Stop date: 08/15/21 9:58:00 ROLLER HAND Lactated 2-0 No Route: IV, Mem oria Ringers 2-22 Total l Injection 14:58: Volume: Hermila nn IV (ANES) 00 1,000, 1000 mL Start date: 08/15/21 8:58:00 ROLLER HAND, Stop date: 08/15/21 9:58:00 ROLLER HAND Lactated 2021-0 No Route: IV, Mem oria Ringers 2-22 Total l Injection 14:58: Volume: Hermila nn IV (ANES) 00 1,000, 1000 mL Start date: 08/15/21 8:58:00 ROLLER HAND, Stop date: 08/15/21 9:58:00 ROLLER HAND Lactated 2021-0 No Route: IV, Mem oria Ringers 2-22 Total l Injection 14:58: Volume: Hermila nn IV (ANES) 00 1,000, 1000 mL Start date: 08/15/21 8:58:00 ROLLER HAND, Stop date: 08/15/21 9:58:00 ROLLER HAND Lactated 2021-0 No Route: IV, Mem oria Ringers 2-22 Total l Injection 14:58: Volume: Hermila nn IV (ANES) 00 1,000, 1000 mL Start date: 08/15/21 8:58:00 ROLLER HAND, Stop date: 08/15/21 9:58:00 ROLLER HAND Lactated 2-0 No Route: IV, Mem oria Ringers 2-22 Total l Injection 14:58: Volume: Hermila nn IV (ANES) 00 1,000, 1000 mL Start date: 08/15/21 8:58:00 ROLLER HAND, Stop date: 08/15/21 9:58:00 ROLLER HAND Lactated 2021-0 No Route: IV, Mem oria Ringers 2-22 Total l Injection 14:58: Volume: Hermila nn IV (ANES) 00 1,000, 1000 mL Start date: 08/15/21 8:58:00 ROLLER HAND, Stop date: 08/15/21 9:58:00 ROLLER HAND Lactated 2021-0 No Route: IV, Mem oria Ringers 2-22 Total l Injection 14:58: Volume: Hermila nn IV (ANES) 00 1,000, 1000 mL Start date: 08/15/21 8:58:00 ROLLER HAND, Stop date: 08/15/21 9:58:00 ROLLER HAND Lactated 2021-0 No Route: IV, Mem oria Ringers 2-22 Total l Injection 14:58: Volume: Hermila nn IV (ANES) 00 1,000, 1000 mL Start date: 08/15/21 8:58:00 ROLLER HAND, Stop date: 08/15/21 9:58:00 ROLLER HAND Lactated 2021-0 No Route: IV, Mem oria Ringers 2-22 Total l Injection 14:58: Volume: Hermila nn IV (ANES) 00 1,000, 1000 mL Start date: 08/15/21 8:58:00 ROLLER HAND, Stop date: 08/15/21 9:58:00 ROLLER HAND Lactated 2021-0 No Route: IV, Mem oria Ringers 2-22 Total l Injection 14:58: Volume: Hermila nn IV (ANES) 00 1,000, 1000 mL Start date: 08/15/21 8:58:00 ROLLER HAND, Stop date: 08/15/21 9:58:00 ROLLER HAND Lactated 2021-0 No Route: IV, Mem oria Ringers 2-22 Total l Injection 14:58: Volume: Hermila nn IV (ANES) 00 1,000, 1000 mL Start date: 08/15/21 8:58:00 ROLLER HAND, Stop date: 08/15/21 9:58:00 ROLLER HAND Lactated 2021-0 No Route: IV, Mem oria Ringers 2-22 Total l Injection 14:58: Volume: Hermila nn IV (ANES) 00 1,000, 1000 mL Start date: 08/15/21 8:58:00 ROLLER HAND, Stop date: 08/15/21 9:58:00 ROLLER HAND Lactated 2021-0 No Route: IV, Mem oria Ringers 2-22 Total l Injection 14:58: Volume: Hermila nn IV (ANES) 00 1,000, 1000 mL Start date: 08/15/21 8:58:00 ROLLER HAND, Stop date: 08/15/21 9:58:00 ROLLER HAND Lactated 2022-0 No Route: IV, Mem oria Ringers 2-22 Total l Injection 14:58: Volume: Hermial nn IV (ANES) 00 1,000, 1000 mL Start date: 08/15/21 8:58:00 ROLLER HAND, Stop date: 08/15/21 9:58:00 ROLLER HAND Lactated No Route: IV, Mem oria Ringers 2-22 Total l Injection 14:58: Volume: Hermila nn IV (ANES) 00 1,000, 1000 mL Start date: 08/15/21 8:58:00 ROLLER HAND, Stop date: 08/15/21 9:58:00 ROLLER HAND Lactated No Route: IV, Mem oria Ringers 2-22 Total l Injection 14:58: Volume: Hermila nn IV (ANES) 00 1,000, 1000 mL Start date: 08/15/21 8:58:00 ROLLER HAND, Stop date: 08/15/21 9:58:00 ROLLER HAND Lactated No Route: IV, Mem oria Ringers 2-22 Total l Injection 14:58: Volume: Hermila nn IV (ANES) 00 1,000, 1000 mL Start date: 08/15/21 8:58:00 ROLLER HAND, Stop date: 08/15/21 9:58:00 ROLLER HAND Lactated No Route: IV, Mem oria Ringers 2-22 Total l Injection 14:58: Volume: Hermila nn IV (ANES) 00 1,000, 1000 mL Start date: 08/15/21 8:58:00 ROLLER HAND, Stop date: 08/15/21 9:58:00 ROLLER HAND Lactated 0 No Route: IV, Mem oria Ringers 2-22 Total l Injection 14:58: Volume: Hermila nn IV (ANES) 00 1,000, 1000 mL Start date: 08/15/21 8:58:00 ROLLER HAND, Stop date: 08/15/21 9:58:00 ROLLER HAND Isolyte S No Notes: Memori a PH 7.4 08-15 (Same as: l 1,000 mL 14:12: Isolyte S Herm miguel 00 PH7.4, Normosol-R PH 7.4, Plasma-Lyt e A ) Acetaminoph 2022-0 No 1,000 mg, M emoria en 08-15 Route: PO, l 14:12: Drug form: [place] 00 TAB, PRE OP, Dosing Weight 74.091, kg, Priority: NOW, Start date: 08/15/21 8:12:00 ROLLER HAND, Duration: 1 doses or times Isolyte S No Notes: Memori a PH 7.4 - (Same as: l 1,000 mL 14:12: Isolyte S [place] 00 PH7.4, Normosol-R PH 7.4, Plasma-Lyt e A ) Acetaminoph No 1,000 mg, M emoria en 08-15 Route: PO, l 14:12: Drug form: [place] 00 TAB, PRE OP, Dosing Weight 74.091, kg, Priority: NOW, Start date: 08/15/21 8:12:00 ROLLER HAND, Duration: 1 doses or times Isolyte S No Notes: Memori a PH 7.4 08-15 (Same as: l 1,000 mL 14:12: Isolyte S [place] mig[place] 00 PH7.4, Normosol-R PH 7.4, Plasma-Lyt e A ) Acetaminoph No 1,000 mg, M emoria en 08-15 Route: PO, l 14:12: Drug form: [place] 00 TAB, PRE OP, Dosing Weight 74.091, kg, Priority: NOW, Start date: 08/15/21 8:12:00 ROLLER HAND, Duration: 1 doses or times Isolyte S No Notes: Memori a PH 7.4 - (Same as: l 1,000 mL 14:12: Isolyte S Herm mig[place] 00 PH7.4, Normosol-R PH 7.4, Plasma-Lyt e A ) Acetaminoph No 1,000 mg, M emoria en 08-15 Route: PO, l 14:12: Drug form: [place] 00 TAB, PRE OP, Dosing Weight 74.091, kg, Priority: NOW, Start date: 08/15/21 8:12:00 ROLLER HAND, Duration: 1 doses or times Isolyte S 0 No Notes: Memori a PH 7.4 - (Same as: l 1,000 mL 14:12: Isolyte S Herm mig[place] 00 PH7.4, Normosol-R PH 7.4, Plasma-Lyt e A ) Acetaminoph 2-0 No 1,000 mg, M emoria en 08-15 Route: PO, l 14:12: Drug form: [place] 00 TAB, PRE OP, Dosing Weight 74.091, kg, Priority: NOW, Start date: 08/15/21 8:12:00 ROLLER HAND, Duration: 1 doses or times Isolyte S 2021-0 No Notes: Memori a PH 7.4 08-15 (Same as: l 1,000 mL 14:12: Isolyte S Herm miguel 00 PH7.4, Normosol-R PH 7.4, Plasma-Lyt e A ) Acetaminoph 2021-0 No 1,000 mg, M emoria en 08-15 Route: PO, l 14:12: Drug form: [place] 00 TAB, PRE OP, Dosing Weight 74.091, kg, Priority: NOW, Start date: 08/15/21 8:12:00 ROLLER HAND, Duration: 1 doses or times Isolyte S 2021-0 No Notes: Memori a PH 7.4 08-15 (Same as: l 1,000 mL 14:12: Isolyte S Herm miguel 00 PH7.4, Normosol-R PH 7.4, Plasma-Lyt e A ) Acetaminoph 2021-0 No 1,000 mg, M emoria en 08-15 Route: PO, l 14:12: Drug form: [place] 00 TAB, PRE OP, Dosing Weight 74.091, kg, Priority: NOW, Start date: 08/15/21 8:12:00 ROLLER HAND, Duration: 1 doses or times Isolyte S 2021-0 No Notes: Memori a PH 7.4 08-15 (Same as: l 1,000 mL 14:12: Isolyte S Herm miguel 00 PH7.4, Normosol-R PH 7.4, Plasma-Lyt e A ) Acetaminoph 2021-0 No 1,000 mg, M emoria en 08-15 Route: PO, l 14:12: Drug form: [place] 00 TAB, PRE OP, Dosing Weight 74.091, kg, Priority: NOW, Start date: 08/15/21 8:12:00 ROLLER HAND, Duration: 1 doses or times Isolyte S 2021-0 No Notes: Memori a PH 7.4 2-22 (Same as: l 1,000 mL 14:12: Isolyte S Herm miguel 00 PH7.4, Normosol-R PH 7.4, Plasma-Lyt e A ) Acetaminoph 2021-0 No 1,000 mg, M emoria en 08-15 Route: PO, l 14:12: Drug form: [place] 00 TAB, PRE OP, Dosing Weight 74.091, kg, Priority: NOW, Start date: 08/15/21 8:12:00 ROLLER HAND, Duration: 1 doses or times Isolyte S 2021-0 No Notes: Memori a PH 7.4 - (Same as: l 1,000 mL 14:12: Isolyte S Herm miguel 00 PH7.4, Normosol-R PH 7.4, Plasma-Lyt e A ) Acetaminoph 2021-0 No 1,000 mg, M emoria en 08-15 Route: PO, l 14:12: Drug form: [place] 00 TAB, PRE OP, Dosing Weight 74.091, kg, Priority: NOW, Start date: 08/15/21 8:12:00 ROLLER HAND, Duration: 1 doses or times Isolyte S 2021-0 No Notes: Memori a PH 7.4 2- (Same as: l 1,000 mL 14:12: Isolyte S Herm miguel 00 PH7.4, Normosol-R PH 7.4, Plasma-Lyt e A ) Acetaminoph 2021-0 No 1,000 mg, M emoria en 08-15 Route: PO, l 14:12: Drug form: [place] 00 TAB, PRE OP, Dosing Weight 74.091, kg, Priority: NOW, Start date: 08/15/21 8:12:00 ROLLER HAND, Duration: 1 doses or times Isolyte S 2021-0 No Notes: Memori a PH 7.4 2- (Same as: l 1,000 mL 14:12: Isolyte S Herm mig[place] 00 PH7.4, Normosol-R PH 7.4, Plasma-Lyt e A ) Acetaminoph 2021-0 No 1,000 mg, M emoria en 08-15 Route: PO, l 14:12: Drug form: [place] 00 TAB, PRE OP, Dosing Weight 74.091, kg, Priority: NOW, Start date: 08/15/21 8:12:00 ROLLER HAND, Duration: 1 doses or times Isolyte S 0 No Notes: Memori a PH 7.4 - (Same as: l 1,000 mL 14:12: Isolyte S Herm miguel 00 PH7.4, Normosol-R PH 7.4, Plasma-Lyt e A ) Acetaminoph No 1,000 mg, M emoria en 08-15 Route: PO, l 14:12: Drug form: [place] 00 TAB, PRE OP, Dosing Weight 74.091, kg, Priority: NOW, Start date: 08/15/21 8:12:00 ROLLER HAND, Duration: 1 doses or times Isolyte S 0 No Notes: Memori a PH 7.4 08-15 (Same as: l 1,000 mL 14:12: Isolyte S Herm miguel 00 PH7.4, Normosol-R PH 7.4, Plasma-Lyt e A ) Acetaminoph No 1,000 mg, M emoria en 08-15 Route: PO, l 14:12: Drug form: [place] 00 TAB, PRE OP, Dosing Weight 74.091, kg, Priority: NOW, Start date: 08/15/21 8:12:00 ROLLER HAND, Duration: 1 doses or times Isolyte S 0 No Notes: Memori a PH 7.4 08-15 (Same as: l 1,000 mL 14:12: Isolyte S [facility] miguel 00 PH7.4, Normosol-R PH 7.4, Plasma-Lyt e A ) Acetaminoph No 1,000 mg, M emoria en 08-15 Route: PO, l 14:12: Drug form: [place] 00 TAB, PRE OP, Dosing Weight 74.091, kg, Priority: NOW, Start date: 08/15/21 8:12:00 ROLLER HAND, Duration: 1 doses or times Isolyte S 0 No Notes: Memori a PH 7.4 - (Same as: l 1,000 mL 14:12: Isolyte S [facility] mig[facility] 00 PH7.4, Normosol-R PH 7.4, Plasma-Lyt e A ) Acetaminoph 2021-0 No 1,000 mg, M emoria en 08-15 Route: PO, l 14:12: Drug form: [place] 00 TAB, PRE OP, Dosing Weight 74.091, kg, Priority: NOW, Start date: 08/15/21 8:12:00 ROLLER HAND, Duration: 1 doses or times Isolyte S 2021-0 No Notes: Memori a PH 7.4 08-15 (Same as: l 1,000 mL 14:12: Isolyte S [facility] mig[facility] 00 PH7.4, Normosol-R PH 7.4, Plasma-Lyt e A ) Acetaminoph 2021-0 No 1,000 mg, M emoria en 08-15 Route: PO, l 14:12: Drug form: [place] 00 TAB, PRE OP, Dosing Weight 74.091, kg, Priority: NOW, Start date: 08/15/21 8:12:00 ROLLER HAND, Duration: 1 doses or times Isolyte S 2021-0 No Notes: Memori a PH 7.4 08-15 (Same as: l 1,000 mL 14:12: Isolyte S [facility] miguel 00 PH7.4, Normosol-R PH 7.4, Plasma-Lyt e A ) Acetaminoph 0 No 1,000 mg, M emoria en 08-15 Route: PO, l 14:12: Drug form: [place] 00 TAB, PRE OP, Dosing Weight 74.091, kg, Priority: NOW, Start date: 08/15/21 8:12:00 ROLLER HAND, Duration: 1 doses or times Isolyte S 2021-0 No Notes: Memori a PH 7.4 08-15 (Same as: l 1,000 mL 14:12: Isolyte S [facility] miguel 00 PH7.4, Normosol-R PH 7.4, Plasma-Lyt e A ) Acetaminoph 2021-0 No 1,000 mg, M emoria en 08-15 Route: PO, l 14:12: Drug form: [place] 00 TAB, PRE OP, Dosing Weight 74.091, kg, Priority: NOW, Start date: 08/15/21 8:12:00 ROLLER HAND, Duration: 1 doses or times Isolyte S 2021-0 No Notes: Memori a PH 7.4 2- (Same as: l 1,000 mL 14:12: Isolyte S [facility] mig[facility] 00 PH7.4, Normosol-R PH 7.4, Plasma-Lyt e A ) Acetaminoph 2021-0 No 1,000 mg, M emoria en 08-15 Route: PO, l 14:12: Drug form: [place] 00 TAB, PRE OP, Dosing Weight 74.091, kg, Priority: NOW, Start date: 08/15/21 8:12:00 ROLLER HAND, Duration: 1 doses or times Isolyte S 2021-0 No Notes: Memori a PH 7.4 08-15 (Same as: l 1,000 mL 14:12: Isolyte S [facility] mig[facility] 00 PH7.4, Normosol-R PH 7.4, Plasma-Lyt e A ) Acetaminoph 0 No 1,000 mg, M emoria en 08-15 Route: PO, l 14:12: Drug form: [place] 00 TAB, PRE OP, Dosing Weight 74.091, kg, Priority: NOW, Start date: 08/15/21 8:12:00 ROLLER HAND, Duration: 1 doses or times Isolyte S 2021-0 No Notes: Memori a PH 7.4 - (Same as: l 1,000 mL 14:12: Isolyte S [facility] mig[facility] 00 PH7.4, Normosol-R PH 7.4, Plasma-Lyt e A ) Acetaminoph 0 No 1,000 mg, M emoria en 08-15 Route: PO, l 14:12: Drug form: [place] 00 TAB, PRE OP, Dosing Weight 74.091, kg, Priority: NOW, Start date: 08/15/21 8:12:00 ROLLER HAND, Duration: 1 doses or times Isolyte S 2021-0 No Notes: Memori a PH 7.4 - (Same as: l 1,000 mL 14:12: Isolyte S [facility] mig[facility] 00 PH7.4, Normosol-R PH 7.4, Plasma-Lyt e A ) Acetaminoph 2021-0 No 1,000 mg, M emoria en 08-15 Route: PO, l 14:12: Drug form: Ran 00 TAB, PRE OP, Dosing Weight 74.091, kg, Priority: NOW, Start date: 08/15/21 8:12:00 ROLLER HAND, Duration: 1 doses or times Isolyte S 2021-0 No Notes: Memori a PH 7.4 - (Same as: l 1,000 mL 14:12: Isolyte S [facility] mig[facility] 00 PH7.4, Normosol-R PH 7.4, Plasma-Lyt e A ) Acetaminoph 0 No 1,000 mg, M emoria en 08-15 Route: PO, l 14:12: Drug form: Ran 00 TAB, PRE OP, Dosing Weight 74.091, kg, Priority: NOW, Start date: 08/15/21 8:12:00 ROLLER HAND, Duration: 1 doses or times Isolyte S 0 No Notes: Memori a PH 7.4 08-15 (Same as: l 1,000 mL 14:12: Isolyte S Herm mig[facility] 00 PH7.4, Normosol-R PH 7.4, Plasma-Lyt e A ) Acetaminoph No 1,000 mg, M emoria en 08-15 Route: PO, l 14:12: Drug form: [place] 00 TAB, PRE OP, Dosing Weight 74.091, kg, Priority: NOW, Start date: 08/15/21 8:12:00 ROLLER HAND, Duration: 1 doses or times Isolyte S 0 No Notes: Memori a PH 7.4 - (Same as: l 1,000 mL 14:12: Isolyte S Herm miguel 00 PH7.4, Normosol-R PH 7.4, Plasma-Lyt e A ) Acetaminoph 0 No 1,000 mg, M emoria en 08-15 Route: PO, l 14:12: Drug form: [place] 00 TAB, PRE OP, Dosing Weight 74.091, kg, Priority: NOW, Start date: 08/15/21 8:12:00 ROLLER HAND, Duration: 1 doses or times Isolyte S 0 No Notes: Memori a PH 7.4 - (Same as: l 1,000 mL 14:12: Isolyte S Herm mig[facility] 00 PH7.4, Normosol-R PH 7.4, Plasma-Lyt e A ) Acetaminoph 2021-0 No 1,000 mg, M emoria en 08-15 Route: PO, l 14:12: Drug form: [place] 00 TAB, PRE OP, Dosing Weight 74.091, kg, Priority: NOW, Start date: 08/15/21 8:12:00 ROLLER HAND, Duration: 1 doses or times Isolyte S 2021-0 No Notes: Memori a PH 7.4 08-15 (Same as: l 1,000 mL 14:12: Isolyte S [facility] 00 PH7.4, Normosol-R PH 7.4, Plasma-Lyt e A ) Acetaminoph 2021-0 No 1,000 mg, M emoria en 08-15 Route: PO, l 14:12: Drug form: [place] 00 TAB, PRE OP, Dosing Weight 74.091, kg, Priority: NOW, Start date: 08/15/21 8:12:00 ROLLER HAND, Duration: 1 doses or times Isolyte S 2021-0 No Notes: Memori a PH 7.4 08-15 (Same as: l 1,000 mL 14:12: Isolyte S Herm mig[facility] 00 PH7.4, Normosol-R PH 7.4, Plasma-Lyt e A ) Acetaminoph 2021-0 No 1,000 mg, M emoria en 08-15 Route: PO, l 14:12: Drug form: [place] 00 TAB, PRE OP, Dosing Weight 74.091, kg, Priority: NOW, Start date: 08/15/21 8:12:00 ROLLER HAND, Duration: 1 doses or times Isolyte S 2021-0 No Notes: Memori a PH 7.4 08-15 (Same as: l 1,000 mL 14:12: Isolyte S [facility] 00 PH7.4, Normosol-R PH 7.4, Plasma-Lyt e A ) Acetaminoph 2021-0 No 1,000 mg, M emoria en 08-15 Route: PO, l 14:12: Drug form: [place] 00 TAB, PRE OP, Dosing Weight 74.091, kg, Priority: NOW, Start date: 08/15/21 8:12:00 ROLLER HAND, Duration: 1 doses or times Isolyte S 202-0 No Notes: Memori a PH 7.4 2-22 (Same as: l 1,000 mL 14:12: Isolyte S [facility] 00 PH7.4, Normosol-R PH 7.4, Plasma-Lyt e A ) Acetaminoph 2022-0 No 1,000 mg, M emoria en 08-15 Route: PO, l 14:12: Drug form: [place] 00 TAB, PRE OP, Dosing Weight 74.091, kg, Priority: NOW, Start date: 08/15/21 8:12:00 ROLLER HAND, Duration: 1 doses or times Isolyte S 2021-0 No Notes: Memori a PH 7.4 - (Same as: l 1,000 mL 14:12: Isolyte S [facility] 00 PH7.4, Normosol-R PH 7.4, Plasma-Lyt e A ) Acetaminoph 2022-0 No 1,000 mg, M emoria en 08-15 Route: PO, l 14:12: Drug form: [place] 00 TAB, PRE OP, Dosing Weight 74.091, kg, Priority: NOW, Start date: 08/15/21 8:12:00 ROLLER HAND, Duration: 1 doses or times Isolyte S 2021-0 No Notes: Memori a PH 7.4 - (Same as: l 1,000 mL 14:12: Isolyte S [facility] 00 PH7.4, Normosol-R PH 7.4, Plasma-Lyt e A ) Isolyte S 2021-0 No Notes: Memori a PH 7.4 2- (Same as: l 1,000 mL 14:12: Isolyte S [facility] 00 PH7.4, Normosol-R PH 7.4, Plasma-Lyt e A ) Acetaminoph 2022-0 No 1,000 mg, M emoria en 08-15 Route: PO, l 14:12: Drug form: [place] 00 TAB, PRE OP, Dosing Weight 74.091, kg, Priority: NOW, Start date: 08/15/21 8:12:00 ROLLER HAND, Duration: 1 doses or times Acetaminoph 2022-0 No 1,000 mg, M emoria en 08-15 Route: PO, l 14:12: Drug form: [place] 00 TAB, PRE OP, Dosing Weight 74.091, kg, Priority: NOW, Start date: 08/15/21 8:12:00 ROLLER HAND, Duration: 1 doses or times Isolyte S 0 No Notes: Memori a PH 7.4 08-15 (Same as: l 1,000 mL 14:12: Isolyte S [facility] [place] 00 PH7.4, Normosol-R PH 7.4, Plasma-Lyt e A ) Acetaminoph 0 No 1,000 mg, M emoria en 08-15 Route: PO, l 14:12: Drug form: [place] 00 TAB, PRE OP, Dosing Weight 74.091, kg, Priority: NOW, Start date: 08/15/21 8:12:00 ROLLER HAND, Duration: 1 doses or times Isolyte S 0 No Notes: Memori a PH 7.4 08-15 (Same as: l 1,000 mL 14:12: Isolyte S [facility] 00 PH7.4, Normosol-R PH 7.4, Plasma-Lyt e A ) Acetaminoph 0 No 1,000 mg, M emoria en 08-15 Route: PO, l 14:12: Drug form: [place] 00 TAB, PRE OP, Dosing Weight 74.091, kg, Priority: NOW, Start date: 08/15/21 8:12:00 ROLLER HAND, Duration: 1 doses or times Isolyte S 0 No Notes: Memori a PH 7.4 08-15 (Same as: l 1,000 mL 14:12: Isolyte S [facility] 00 PH7.4, Normosol-R PH 7.4, Plasma-Lyt e A ) Acetaminoph 0 No 1,000 mg, M emoria en 08-15 Route: PO, l 14:12: Drug form: [place] 00 TAB, PRE OP, Dosing Weight 74.091, kg, Priority: NOW, Start date: 08/15/21 8:12:00 ROLLER HAND, Duration: 1 doses or times Isolyte S 0 No Notes: Memori a PH 7.4 - (Same as: l 1,000 mL 14:12: Isolyte S Herm mig[facility] 00 PH7.4, Normosol-R PH 7.4, Plasma-Lyt e A ) Acetaminoph 0 No 1,000 mg, M emoria en 08-15 Route: PO, l 14:12: Drug form: [place] 00 TAB, PRE OP, Dosing Weight 74.091, kg, Priority: NOW, Start date: 08/15/21 8:12:00 ROLLER HAND, Duration: 1 doses or times Isolyte S 0 No Notes: Memori a PH 7.4 08-15 (Same as: l 1,000 mL 14:12: Isolyte S [facility] [place] 00 PH7.4, Normosol-R PH 7.4, Plasma-Lyt e A ) Acetaminoph No 1,000 mg, M emoria en 08-15 Route: PO, l 14:12: Drug form: [place] 00 TAB, PRE OP, Dosing Weight 74.091, kg, Priority: NOW, Start date: 08/15/21 8:12:00 ROLLER HAND, Duration: 1 doses or times Isolyte S No Notes: Memori a PH 7.4 08-15 (Same as: l 1,000 mL 14:12: Isolyte S [facility] 00 PH7.4, Normosol-R PH 7.4, Plasma-Lyt e A ) Acetaminoph No 1,000 mg, M emoria en 08-15 Route: PO, l 14:12: Drug form: [place] 00 TAB, PRE OP, Dosing Weight 74.091, kg, Priority: NOW, Start date: 08/15/21 8:12:00 ROLLER HAND, Duration: 1 doses or times Mefoxin No Notes: Memoria 08-15 (Same As: l 12:00: Mefoxin) [place] 00 MEDICATION WASTE Product Size: 2000 mg Product Wasted: ___ mg Acetaminoph No Notes: Max Memoria en 08-15 acetaminop l 12:00: hen 4000 [place] 00 mg/day (4 gm/day). (Same as: Tylenol Extra Strength) Lovenox No Notes: Memoria 08-15 (Same as: l 12:00: Lovenox) [place] 00 Mefoxin 2022-0 No Notes: Memoria 2-22 (Same As: l 12:00: Mefoxin) [place] 00 MEDICATION WASTE Product Size: 2000 mg Product Wasted: ___ mg Acetaminoph No Notes: Max Memoria en 2-22 acetaminop l 12:00: hen 4000 [place] 00 mg/day (4 gm/day). (Same as: Tylenol Extra Strength) Lovenox No Notes: Memoria 2-22 (Same as: l 12:00: Lovenox) [place] Mefoxin 0 No Notes: Memoria 2-22 (Same As: l 12:00: Mefoxin) Ran MEDICATION WASTE Product Size: 2000 mg Product Wasted: ___ mg Acetaminoph No Notes: Max Memoria en 2-22 acetaminop l 12:00: hen 4000 [place] 00 mg/day (4 gm/day). (Same as: Tylenol Extra Strength) Lovenox No Notes: Memoria 2-22 (Same as: l 12:00: Lovenox) Ran Mefoxin 0 No Notes: Memoria 2-22 (Same As: l 12:00: Mefoxin) [place] 00 MEDICATION WASTE Product Size: 2000 mg Product Wasted: ___ mg Acetaminoph No Notes: Max Memoria en 2-22 acetaminop l 12:00: hen 4000 [place] 00 mg/day (4 gm/day). (Same as: Tylenol Extra Strength) Lovenox 0 No Notes: Memoria 2-22 (Same as: l 12:00: Lovenox) [place] Mefoxin 0 No Notes: Memoria 2-22 (Same As: l 12:00: Mefoxin) [place] MEDICATION WASTE Product Size: 2000 mg Product Wasted: ___ mg Acetaminoph No Notes: Max Memoria en 2-22 acetaminop l 12:00: hen 4000 [place] 00 mg/day (4 gm/day). (Same as: Tylenol Extra Strength) Lovenox 0 No Notes: Memoria 2-22 (Same as: l 12:00: Lovenox) [place] 00 Mefoxin 0 No Notes: Memoria 2-22 (Same As: l 12:00: Mefoxin) [place] 00 MEDICATION WASTE Product Size: 2000 mg Product Wasted: ___ mg Acetaminoph No Notes: Max Memoria en 2-22 acetaminop l 12:00: hen 4000 [place] 00 mg/day (4 gm/day). (Same as: Tylenol Extra Strength) Lovenox 0 No Notes: Memoria 2-22 (Same as: l 12:00: Lovenox) Ran Mefoxin 0 No Notes: Memoria 2-22 (Same As: l 12:00: Mefoxin) Ran MEDICATION WASTE Product Size: 2000 mg Product Wasted: ___ mg Acetaminoph No Notes: Max Memoria en 2-22 acetaminop l 12:00: hen 4000 [place] 00 mg/day (4 gm/day). (Same as: Tylenol Extra Strength) Lovenox No Notes: Memoria 2-22 (Same as: l 12:00: Lovenox) [place] Mefoxin 0 No Notes: Memoria 2-22 (Same As: l 12:00: Mefoxin) [place] 00 MEDICATION WASTE Product Size: 2000 mg Product Wasted: ___ mg Acetaminoph No Notes: Max Memoria en 2-22 acetaminop l 12:00: hen 4000 [place] 00 mg/day (4 gm/day). (Same as: Tylenol Extra Strength) Lovenox 0 No Notes: Memoria 2-22 (Same as: l 12:00: Lovenox) [place] 00 Mefoxin 0 No Notes: Memoria 2-22 (Same As: l 12:00: Mefoxin) [place] 00 MEDICATION WASTE Product Size: 2000 mg Product Wasted: ___ mg Acetaminoph 0 No Notes: Max Memoria en 2-22 acetaminop l 12:00: hen 4000 [place] 00 mg/day (4 gm/day). (Same as: Tylenol Extra Strength) Lovenox 0 No Notes: Memoria 2-22 (Same as: l 12:00: Lovenox) [place] 00 Mefoxin 0 No Notes: Memoria 2-22 (Same As: l 12:00: Mefoxin) [place] 00 MEDICATION WASTE Product Size: 2000 mg Product Wasted: ___ mg Acetaminoph No Notes: Max Memoria en 2-22 acetaminop l 12:00: hen 4000 [place] 00 mg/day (4 gm/day). (Same as: Tylenol Extra Strength) Lovenox 0 No Notes: Memoria 2-22 (Same as: l 12:00: Lovenox) Ran Mefoxin 0 No Notes: Memoria 2-22 (Same As: l 12:00: Mefoxin) [place] 00 MEDICATION WASTE Product Size: 2000 mg Product Wasted: ___ mg Acetaminoph No Notes: Max Memoria en 2-22 acetaminop l 12:00: hen 4000 [place] 00 mg/day (4 gm/day). (Same as: Tylenol Extra Strength) Lovenox 0 No Notes: Memoria 2-22 (Same as: l 12:00: Lovenox) [place] 00 Mefoxin 0 No Notes: Memoria 2-22 (Same As: l 12:00: Mefoxin) [place] 00 MEDICATION WASTE Product Size: 2000 mg Product Wasted: ___ mg Acetaminoph 0 No Notes: Max Memoria en 2-22 acetaminop l 12:00: hen 4000 [place] 00 mg/day (4 gm/day). (Same as: Tylenol Extra Strength) Lovenox 0 No Notes: Memoria 2-22 (Same as: l 12:00: Lovenox) [place] 00 Mefoxin 0 No Notes: Memoria 2-22 (Same As: l 12:00: Mefoxin) [place] 00 MEDICATION WASTE Product Size: 2000 mg Product Wasted: ___ mg Acetaminoph 0 No Notes: Max Memoria en 2-22 acetaminop l 12:00: hen 4000 [place] 00 mg/day (4 gm/day). (Same as: Tylenol Extra Strength) Lovenox 0 No Notes: Memoria 2-22 (Same as: l 12:00: Lovenox) [place] Mefoxin 0 No Notes: Memoria 2-22 (Same As: l 12:00: Mefoxin) [place] MEDICATION WASTE Product Size: 2000 mg Product Wasted: ___ mg Acetaminoph No Notes: Max Memoria en 2-22 acetaminop l 12:00: hen 4000 [place] 00 mg/day (4 gm/day). (Same as: Tylenol Extra Strength) Lovenox 0 No Notes: Memoria 2-22 (Same as: l 12:00: Lovenox) Ran Mefoxin 0 No Notes: Memoria 2-22 (Same As: l 12:00: Mefoxin) Ran MEDICATION WASTE Product Size: 2000 mg Product Wasted: ___ mg Acetaminoph No Notes: Max Memoria en 2-22 acetaminop l 12:00: hen 4000 [place] 00 mg/day (4 gm/day). (Same as: Tylenol Extra Strength) Lovenox No Notes: Memoria 2-22 (Same as: l 12:00: Lovenox) Ran Mefoxin 0 No Notes: Memoria 2-22 (Same As: l 12:00: Mefoxin) Ran MEDICATION WASTE Product Size: 2000 mg Product Wasted: ___ mg Acetaminoph 0 No Notes: Max Memoria en 2-22 acetaminop l 12:00: hen 4000 [place] 00 mg/day (4 gm/day). (Same as: Tylenol Extra Strength) Lovenox 0 No Notes: Memoria 2-22 (Same as: l 12:00: Lovenox) [place] Mefoxin 0 No Notes: Memoria 2-22 (Same As: l 12:00: Mefoxin) [place] 00 MEDICATION WASTE Product Size: 2000 mg Product Wasted: ___ mg Acetaminoph No Notes: Max Memoria en 2-22 acetaminop l 12:00: hen 4000 [place] 00 mg/day (4 gm/day). (Same as: Tylenol Extra Strength) Lovenox No Notes: Memoria 2-22 (Same as: l 12:00: Lovenox) Ran Mefoxin No Notes: Memoria 2-22 (Same As: l 12:00: Mefoxin) [place] MEDICATION WASTE Product Size: 2000 mg Product Wasted: ___ mg Acetaminoph No Notes: Max Memoria en 2-22 acetaminop l 12:00: hen 4000 [place] 00 mg/day (4 gm/day). (Same as: Tylenol Extra Strength) Lovenox No Notes: Memoria 2-22 (Same as: l 12:00: Lovenox) [place] Mefoxin No Notes: Memoria 2-22 (Same As: l 12:00: Mefoxin) [place] 00 MEDICATION WASTE Product Size: 2000 mg Product Wasted: ___ mg Acetaminoph No Notes: Max Memoria en 2-22 acetaminop l 12:00: hen 4000 [place] 00 mg/day (4 gm/day). (Same as: Tylenol Extra Strength) Lovenox No Notes: Memoria 2-22 (Same as: l 12:00: Lovenox) Ran Mefoxin No Notes: Memoria 2-22 (Same As: l 12:00: Mefoxin) Ran MEDICATION WASTE Product Size: 2000 mg Product Wasted: ___ mg Acetaminoph No Notes: Max Memoria en 2-22 acetaminop l 12:00: hen 4000 [place] 00 mg/day (4 gm/day). (Same as: Tylenol Extra Strength) Lovenox No Notes: Memoria 2-22 (Same as: l 12:00: Lovenox) Ran Mefoxin 0 No Notes: Memoria 2-22 (Same As: l 12:00: Mefoxin) [place] 00 MEDICATION WASTE Product Size: 2000 mg Product Wasted: ___ mg Acetaminoph 0 No Notes: Max Memoria en 2-22 acetaminop l 12:00: hen 4000 [place] 00 mg/day (4 gm/day). (Same as: Tylenol Extra Strength) Lovenox 0 No Notes: Memoria 2-22 (Same as: l 12:00: Lovenox) Ran Mefoxin 0 No Notes: Memoria 2-22 (Same As: l 12:00: Mefoxin) [place] MEDICATION WASTE Product Size: 2000 mg Product Wasted: ___ mg Acetaminoph No Notes: Max Memoria en 2-22 acetaminop l 12:00: hen 4000 [place] 00 mg/day (4 gm/day). (Same as: Tylenol Extra Strength) Lovenox No Notes: Memoria 2-22 (Same as: l 12:00: Lovenox) [place] Mefoxin 0 No Notes: Memoria 2-22 (Same As: l 12:00: Mefoxin) [place] MEDICATION WASTE Product Size: 2000 mg Product Wasted: ___ mg Acetaminoph No Notes: Max Memoria en 2-22 acetaminop l 12:00: hen 4000 [place] 00 mg/day (4 gm/day). (Same as: Tylenol Extra Strength) Lovenox No Notes: Memoria 2-22 (Same as: l 12:00: Lovenox) [place] Mefoxin 0 No Notes: Memoria 2-22 (Same As: l 12:00: Mefoxin) [place] 00 MEDICATION WASTE Product Size: 2000 mg Product Wasted: ___ mg Acetaminoph 0 No Notes: Max Memoria en 2-22 acetaminop l 12:00: hen 4000 [place] 00 mg/day (4 gm/day). (Same as: Tylenol Extra Strength) Lovenox 0 No Notes: Memoria 2-22 (Same as: l 12:00: Lovenox) Ran Mefoxin 0 No Notes: Memoria 2-22 (Same As: l 12:00: Mefoxin) [place] 00 MEDICATION WASTE Product Size: 2000 mg Product Wasted: ___ mg Acetaminoph 0 No Notes: Max Memoria en 2-22 acetaminop l 12:00: hen 4000 [place] 00 mg/day (4 gm/day). (Same as: Tylenol Extra Strength) Lovenox 0 No Notes: Memoria 2-22 (Same as: l 12:00: Lovenox) [place] 00 Mefoxin 0 No Notes: Memoria 2-22 (Same As: l 12:00: Mefoxin) [place] 00 MEDICATION WASTE Product Size: 2000 mg Product Wasted: ___ mg Acetaminoph No Notes: Max Memoria en 2-22 acetaminop l 12:00: hen 4000 [place] 00 mg/day (4 gm/day). (Same as: Tylenol Extra Strength) Lovenox No Notes: Memoria 2-22 (Same as: l 12:00: Lovenox) [place] Mefoxin 0 No Notes: Memoria 2-22 (Same As: l 12:00: Mefoxin) [place] 00 MEDICATION WASTE Product Size: 2000 mg Product Wasted: ___ mg Acetaminoph No Notes: Max Memoria en 2-22 acetaminop l 12:00: hen 4000 [place] 00 mg/day (4 gm/day). (Same as: Tylenol Extra Strength) Lovenox 0 No Notes: Memoria 2-22 (Same as: l 12:00: Lovenox) [place] 00 Mefoxin 0 No Notes: Memoria 2-22 (Same As: l 12:00: Mefoxin) [place] 00 MEDICATION WASTE Product Size: 2000 mg Product Wasted: ___ mg Acetaminoph No Notes: Max Memoria en 2-22 acetaminop l 12:00: hen 4000 [place] 00 mg/day (4 gm/day). (Same as: Tylenol Extra Strength) Lovenox 0 No Notes: Memoria 2-22 (Same as: l 12:00: Lovenox) [place] 00 Mefoxin 0 No Notes: Memoria 2-22 (Same As: l 12:00: Mefoxin) [place] 00 MEDICATION WASTE Product Size: 2000 mg Product Wasted: ___ mg Acetaminoph No Notes: Max Memoria en 2-22 acetaminop l 12:00: hen 4000 [place] 00 mg/day (4 gm/day). (Same as: Tylenol Extra Strength) Lovenox No Notes: Memoria 2-22 (Same as: l 12:00: Lovenox) [place] Mefoxin No Notes: Memoria 2-22 (Same As: l 12:00: Mefoxin) [place] MEDICATION WASTE Product Size: 2000 mg Product Wasted: ___ mg Acetaminoph No Notes: Max Memoria en 2-22 acetaminop l 12:00: hen 4000 [place] 00 mg/day (4 gm/day). (Same as: Tylenol Extra Strength) Lovenox No Notes: Memoria 2-22 (Same as: l 12:00: Lovenox) Ran Mefoxin 0 No Notes: Memoria 2-22 (Same As: l 12:00: Mefoxin) [place] 00 MEDICATION WASTE Product Size: 2000 mg Product Wasted: ___ mg Acetaminoph No Notes: Max Memoria en 2-22 acetaminop l 12:00: hen 4000 [place] 00 mg/day (4 gm/day). (Same as: Tylenol Extra Strength) Lovenox No Notes: Memoria 2-22 (Same as: l 12:00: Lovenox) Ran Mefoxin 0 No Notes: Memoria 2-22 (Same As: l 12:00: Mefoxin) [place] 00 MEDICATION WASTE Product Size: 2000 mg Product Wasted: ___ mg Acetaminoph No Notes: Max Memoria en 2-22 acetaminop l 12:00: hen 4000 [place] 00 mg/day (4 gm/day). (Same as: Tylenol Extra Strength) Lovenox 0 No Notes: Memoria 2-22 (Same as: l 12:00: Lovenox) [place] 00 Mefoxin 0 No Notes: Memoria 2-22 (Same As: l 12:00: Mefoxin) [place] 00 MEDICATION WASTE Product Size: 2000 mg Product Wasted: ___ mg Acetaminoph 0 No Notes: Max Memoria en 2-22 acetaminop l 12:00: hen 4000 [place] 00 mg/day (4 gm/day). (Same as: Tylenol Extra Strength) Lovenox 0 No Notes: Memoria 2-22 (Same as: l 12:00: Lovenox) Ran Mefoxin 0 No Notes: Memoria 2-22 (Same As: l 12:00: Mefoxin) [place] MEDICATION WASTE Product Size: 2000 mg Product Wasted: ___ mg Acetaminoph 0 No Notes: Max Memoria en 2-22 acetaminop l 12:00: hen 4000 [place] 00 mg/day (4 gm/day). (Same as: Tylenol Extra Strength) Lovenox 0 No Notes: Memoria 2-22 (Same as: l 12:00: Lovenox) Ran Mefoxin 0 No Notes: Memoria 2-22 (Same As: l 12:00: Mefoxin) [place] 00 MEDICATION WASTE Product Size: 2000 mg Product Wasted: ___ mg Acetaminoph 0 No Notes: Max Memoria en 2-22 acetaminop l 12:00: hen 4000 [place] 00 mg/day (4 gm/day). (Same as: Tylenol Extra Strength) Lovenox 0 No Notes: Memoria 2-22 (Same as: l 12:00: Lovenox) Ran Mefoxin 0 No Notes: Memoria 2-22 (Same As: l 12:00: Mefoxin) [place] 00 MEDICATION WASTE Product Size: 2000 mg Product Wasted: ___ mg Acetaminoph 0 No Notes: Max Memoria en 2-22 acetaminop l 12:00: hen 4000 [place] 00 mg/day (4 gm/day). (Same as: Tylenol Extra Strength) Lovenox 2021-0 No Notes: Memoria 2-22 (Same as: l 12:00: Lovenox) [place] 00 Mefoxin 0 No Notes: Memoria 2-22 (Same As: l 12:00: Mefoxin) [place] 00 MEDICATION WASTE Product Size: 2000 mg Product Wasted: ___ mg Acetaminoph 0 No Notes: Max Memoria en 2-22 acetaminop l 12:00: hen 4000 [place] 00 mg/day (4 gm/day). (Same as: Tylenol Extra Strength) Lovenox 0 No Notes: Memoria 2-22 (Same as: l 12:00: Lovenox) [place] Mefoxin 0 No Notes: Memoria 2-22 (Same As: l 12:00: Mefoxin) [place] 00 MEDICATION WASTE Product Size: 2000 mg Product Wasted: ___ mg Acetaminoph 0 No Notes: Max Memoria en 2-22 acetaminop l 12:00: hen 4000 [place] 00 mg/day (4 gm/day). (Same as: Tylenol Extra Strength) Lovenox 0 No Notes: [facility]oria 2-22 (Same as: l 12:00: Lovenox) [place] 00 Mefoxin 0 No Notes: Memoria 2-22 (Same As: l 12:00: Mefoxin) [place] 00 MEDICATION WASTE Product Size: 2000 mg Product Wasted: ___ mg Acetaminoph 0 No Notes: Max Memoria en 2-22 acetaminop l 12:00: hen 4000 [place] 00 mg/day (4 gm/day). (Same as: Tylenol Extra Strength) Lovenox 0 No Notes: Memoria 2-22 (Same as: l 12:00: Lovenox) [place] 00 Mefoxin 0 No Notes: Memoria 2-22 (Same As: l 12:00: Mefoxin) [place] 00 MEDICATION WASTE Product Size: 2000 mg Product Wasted: ___ mg Acetaminoph 0 No Notes: Max Memoria en 2-22 acetaminop l 12:00: hen 4000 [place] 00 mg/day (4 gm/day). (Same as: Tylenol Extra Strength) Lovenox No Notes: Memoria 2-22 (Same as: l 12:00: Lovenox) [place] 00 Omeprazole 2021-0 Yes PO, Daily, M emoria 2-15 0 l 15:02: Refill(s) [place] 00 Omeprazole 2021-0 Yes PO, Daily, M emoria 2-15 0 l 15:02: Refill(s) [place] Omeprazole 2021-0 Yes PO, Daily, M emoria 2-15 0 l 15:02: Refill(s) [place] Omeprazole 2021-0 Yes PO, Daily, M emoria 2-15 0 l 15:02: Refill(s) [place] 00 Omeprazole 2021-0 Yes PO, Daily, M emoria 2-15 0 l 15:02: Refill(s) [place] Omeprazole 2021-0 Yes PO, Daily, M emoria 2-15 0 l 15:02: Refill(s) [place] Omeprazole 2021-0 Yes PO, Daily, M emoria 2-15 0 l 15:02: Refill(s) [place] 00 Omeprazole 2021-0 Yes PO, Daily, M emoria 2-15 0 l 15:02: Refill(s) [place] 00 Omeprazole 2021-0 Yes PO, Daily, M emoria 2-15 0 l 15:02: Refill(s) [place] 00 Omeprazole 2021-0 Yes PO, Daily, M emoria 2-15 0 l 15:02: Refill(s) [place] Omeprazole 2021-0 Yes PO, Daily, M emoria 2-15 0 l 15:02: Refill(s) [place] 00 Omeprazole 2021-0 Yes PO, Daily, M emoria 2-15 0 l 15:02: Refill(s) [place] 00 Omeprazole 2021-0 Yes PO, Daily, M emoria 2-15 0 l 15:02: Refill(s) [place] 00 Omeprazole 2021-0 Yes PO, Daily, M emoria 2-15 0 l 15:02: Refill(s) [place] 00 Omeprazole 2021-0 Yes PO, Daily, M emoria 2-15 0 l 15:02: Refill(s) [place] 00 Omeprazole 2021-0 Yes PO, Daily, M emoria 2-15 0 l 15:02: Refill(s) [place] Omeprazole 0 Yes PO, Daily, M emoria 2-15 0 l 15:02: Refill(s) [place] Omeprazole 2021-0 Yes PO, Daily, M emoria 2-15 0 l 15:02: Refill(s) [place] Omeprazole 0 Yes PO, Daily, M emoria 2-15 0 l 15:02: Refill(s) [place] 00 Omeprazole 2021-0 Yes PO, Daily, M emoria 2-15 0 l 15:02: Refill(s) [place] Omeprazole 0 Yes PO, Daily, M emoria 2-15 0 l 15:02: Refill(s) [place] Omeprazole 2021-0 Yes PO, Daily, M emoria 2-15 0 l 15:02: Refill(s) [place] Omeprazole 2021-0 Yes PO, Daily, M emoria 2-15 0 l 15:02: Refill(s) [place] Omeprazole 2021-0 Yes PO, Daily, M emoria 2-15 0 l 15:02: Refill(s) [place] 00 Omeprazole 0 Yes PO, Daily, M emoria 2-15 0 l 15:02: Refill(s) [place] Omeprazole 2021-0 Yes PO, Daily, M emoria 2-15 0 l 15:02: Refill(s) [place] Omeprazole 2021-0 Yes PO, Daily, M emoria 2-15 0 l 15:02: Refill(s) [place] 00 Omeprazole 2021-0 Yes PO, Daily, M emoria 2-15 0 l 15:02: Refill(s) [place] Omeprazole 2021-0 Yes PO, Daily, M emoria 2-15 0 l 15:02: Refill(s) [place] Omeprazole 2021-0 Yes PO, Daily, M emoria 2-15 0 l 15:02: Refill(s) [place] 00 Omeprazole 2021-0 Yes PO, Daily, M emoria 2-15 0 l 15:02: Refill(s) [place] 00 Omeprazole 2021-0 Yes PO, Daily, M emoria 2-15 0 l 15:02: Refill(s) [place] Omeprazole 2021-0 Yes PO, Daily, M emoria 2-15 0 l 15:02: Refill(s) Ran 00 Omeprazole 2021-0 Yes PO, Daily, M emoria 2-15 0 l 15:02: Refill(s) [place] 00 Omeprazole 2021-0 Yes PO, Daily, M emoria 2-15 0 l 15:02: Refill(s) [place] 00 Omeprazole 2021-0 Yes PO, Daily, M emoria 2-15 0 l 15:02: Refill(s) [place] 00 Omeprazole 2021-0 Yes PO, Daily, M emoria 2-15 0 l 15:02: Refill(s) [place] 00 Omeprazole 2021-0 Yes PO, Daily, M emoria 2-15 0 l 15:02: Refill(s) Omeprazole 2021-0 Yes PO, Daily, M emoria 2-15 0 l 15:02: Refill(s) [place] 00 Omeprazole 2021-0 Yes PO, Daily, M emoria 2-15 0 l 15:02: Refill(s) Omeprazole 2022- No PO, Daily, Lalita 20 MG oral 2-15 -26 0 Seybold Tablet 00:00: 00:00 Refill(s) - Delayed 00 :00 Externa Response l Sulfamethox 2020-06 Yes 1 tab, PO, Memoria azole 800 2-07 BID, for l MG / 20:40: UTI, X 3 [place] Trimethopri 00 day, # 6 m 160 MG tab, 0 Oral Tablet Refill(s), [Bactrim] Pharmacy: [facility] Shock, 167.64, cm, 05/30/21 13:38:00 ROLLER HAND, Height, 79.545, kg, 05/30/21 13:38:00 ROLLER HAND, Weight Tamsulosin 2020-06 Yes 0.4 mg = 1 M emoria hydrochlori 2-07 cap, PO, l de 0.4 MG 20:40: Daily, # 7 He rmann Oral 00 cap, 0 Capsule Refill(s), [Flomax] Pharmacy: [facility], 167.64, cm, 05/30/21 13:38:00 ROLLER HAND, Height, 79.545, kg, 05/30/21 13:38:00 ROLLER HAND, Weight Sulfamethox 2020-06 Yes 1 tab, PO, Memoria azole 800 2-07 BID, for l MG / 20:40: UTI, X 3 [place] Trimethopri 00 day, # 6 m 160 MG tab, 0 Oral Tablet Refill(s), [Bactrim] Pharmacy: [facility], 167.64, cm, 05/30/21 13:38:00 ROLLER HAND, Height, 79.545, kg, 05/30/21 13:38:00 ROLLER HAND, Weight Tamsulosin 2020-06 Yes 0.4 mg = 1 M emoria hydrochlori 2-07 cap, PO, l de 0.4 MG 20:40: Daily, # 7 He r[place] Oral 00 cap, 0 Capsule Refill(s), [Flomax] Pharmacy: [facility], 167.64, cm, 05/30/21 13:38:00 ROLLER HAND, Height, 79.545, kg, 05/30/21 13:38:00 ROLLER HAND, Weight Sulfamethox 2020-06 Yes 1 tab, PO, Memoria azole 800 2-07 BID, for l MG / 20:40: UTI, X 3 [place] Trimethopri 00 day, # 6 m 160 MG tab, 0 Oral Tablet Refill(s), [Bactrim] Pharmacy: [facility], 167.64, cm, 05/30/21 13:38:00 ROLLER HAND, Height, 79.545, kg, 05/30/21 13:38:00 ROLLER HAND, Weight Tamsulosin 2020-06 Yes 0.4 mg = 1 M emoria hydrochlori 2-07 cap, PO, l de 0.4 MG 20:40: Daily, # 7 He rmann Oral 00 cap, 0 Capsule Refill(s), [Flomax] Pharmacy: [facility], 167.64, cm, 05/30/21 13:38:00 ROLLER HAND, Height, 79.545, kg, 05/30/21 13:38:00 ROLLER HAND, Weight Sulfamethox 2020-06 Yes 1 tab, PO, Memoria azole 800 2-07 BID, for l MG / 20:40: UTI, X 3 [place] Trimethopri 00 day, # 6 m 160 MG tab, 0 Oral Tablet Refill(s), [Bactrim] Pharmacy: [facility], 167.64, cm, 05/30/21 13:38:00 ROLLER HAND, Height, 79.545, kg, 05/30/21 13:38:00 ROLLER HAND, Weight Tamsulosin 2020-06 Yes 0.4 mg = 1 M emoria hydrochlori 2-07 cap, PO, l de 0.4 MG 20:40: Daily, # 7 He rmann Oral 00 cap, 0 Capsule Refill(s), [Flomax] Pharmacy: [facility], 167.64, cm, 05/30/21 13:38:00 ROLLER HAND, Height, 79.545, kg, 05/30/21 13:38:00 ROLLER HAND, Weight Sulfamethox 2020-06 Yes 1 tab, PO, Memoria azole 800 2-07 BID, for l MG / 20:40: UTI, X 3 [place] Trimethopri day, # 6 m 160 MG tab, 0 Oral Tablet Refill(s), [Bactrim] Pharmacy: [facility], 167.64, cm, 05/30/21 13:38:00 ROLLER HAND, Height, 79.545, kg, 05/30/21 13:38:00 ROLLER HAND, Weight Tamsulosin 2020-06 Yes 0.4 mg = 1 M emoria hydrochlori 2-07 cap, PO, l de 0.4 MG 20:40: Daily, # 7 He rmann Oral 00 cap, 0 Capsule Refill(s), [Flomax] Pharmacy: [facility], 167.64, cm, 05/30/21 13:38:00 ROLLER HAND, Height, 79.545, kg, 05/30/21 13:38:00 ROLLER HAND, Weight Sulfamethox 2020-06 Yes 1 tab, PO, Memoria azole 800 2-07 BID, for l MG / 20:40: UTI, X 3 Ran Trimethopri 00 day, # 6 m 160 MG tab, 0 Oral Tablet Refill(s), [Bactrim] Pharmacy: [facility], 167.64, cm, 05/30/21 13:38:00 ROLLER HAND, Height, 79.545, kg, 05/30/21 13:38:00 ROLLER HAND, Weight Tamsulosin 2020-06 Yes 0.4 mg = 1 M emoria hydrochlori 2-07 cap, PO, l de 0.4 MG 20:40: Daily, # 7 He rmann Oral 00 cap, 0 Capsule Refill(s), [Flomax] Pharmacy: [facility], 167.64, cm, 05/30/21 13:38:00 ROLLER HAND, Height, 79.545, kg, 05/30/21 13:38:00 ROLLER HAND, Weight Sulfamethox 2020-06 Yes 1 tab, PO, Memoria azole 800 2-07 BID, for l MG / 20:40: UTI, X 3 Ran Trimethopri 00 day, # 6 m 160 MG tab, 0 Oral Tablet Refill(s), [Bactrim] Pharmacy: [facility], 167.64, cm, 05/30/21 13:38:00 ROLLER HAND, Height, 79.545, kg, 05/30/21 13:38:00 ROLLER HAND, Weight Tamsulosin 2020-06 Yes 0.4 mg = 1 M emoria hydrochlori 2-07 cap, PO, l de 0.4 MG 20:40: Daily, # 7 He rmann Oral 00 cap, 0 Capsule Refill(s), [Flomax] Pharmacy: [facility], 167.64, cm, 05/30/21 13:38:00 ROLLER HAND, Height, 79.545, kg, 05/30/21 13:38:00 ROLLER HAND, Weight Sulfamethox 2020-06 Yes 1 tab, PO, Memoria azole 800 2-07 BID, for l MG / 20:40: UTI, X 3 [place] Trimethopri 00 day, # 6 m 160 MG tab, 0 Oral Tablet Refill(s), [Bactrim] Pharmacy: [facility], 167.64, cm, 05/30/21 13:38:00 ROLLER HAND, Height, 79.545, kg, 05/30/21 13:38:00 ROLLER HAND, Weight Tamsulosin 2020-06 Yes 0.4 mg = 1 M emoria hydrochlori 2-07 cap, PO, l de 0.4 MG 20:40: Daily, # 7 He rmann Oral 00 cap, 0 Capsule Refill(s), [Flomax] Pharmacy: [facility], 167.64, cm, 05/30/21 13:38:00 ROLLER HAND, Height, 79.545, kg, 05/30/21 13:38:00 ROLLER HAND, Weight Sulfamethox 2020-06 Yes 1 tab, PO, Memoria azole 800 2-07 BID, for l MG / 20:40: UTI, X 3 Ran Trimethopri 00 day, # 6 m 160 MG tab, 0 Oral Tablet Refill(s), [Bactrim] Pharmacy: [facility], 167.64, cm, 05/30/21 13:38:00 ROLLER HAND, Height, 79.545, kg, 05/30/21 13:38:00 ROLLER HAND, Weight Tamsulosin 2020-06 Yes 0.4 mg = 1 M emoria hydrochlori 2-07 cap, PO, l de 0.4 MG 20:40: Daily, # 7 He rmann Oral 00 cap, 0 Capsule Refill(s), [Flomax] Pharmacy: [facility], 167.64, cm, 05/30/21 13:38:00 ROLLER HAND, Height, 79.545, kg, 05/30/21 13:38:00 ROLLER HAND, Weight Sulfamethox 2020-06 Yes 1 tab, PO, Memoria azole 800 2-07 BID, for l MG / 20:40: UTI, X 3 Ran Trimethopri 00 day, # 6 m 160 MG tab, 0 Oral Tablet Refill(s), [Bactrim] Pharmacy: [facility], 167.64, cm, 05/30/21 13:38:00 ROLLER HAND, Height, 79.545, kg, 05/30/21 13:38:00 ROLLER HAND, Weight Tamsulosin 2020-06 Yes 0.4 mg = 1 M emoria hydrochlori 2-07 cap, PO, l de 0.4 MG 20:40: Daily, # 7 He rmann Oral 00 cap, 0 Capsule Refill(s), [Flomax] Pharmacy: [facility], 167.64, cm, 05/30/21 13:38:00 ROLLER HAND, Height, 79.545, kg, 05/30/21 13:38:00 ROLLER HAND, Weight Sulfamethox 2020-06 Yes 1 tab, PO, Memoria azole 800 2-07 BID, for l MG / 20:40: UTI, X 3 Ran Trimethopri 00 day, # 6 m 160 MG tab, 0 Oral Tablet Refill(s), [Bactrim] Pharmacy: [facility], 167.64, cm, 05/30/21 13:38:00 ROLLER HAND, Height, 79.545, kg, 05/30/21 13:38:00 ROLLER HAND, Weight Tamsulosin 2020-06 Yes 0.4 mg = 1 M emoria hydrochlori 2-07 cap, PO, l de 0.4 MG 20:40: Daily, # 7 He rmann Oral 00 cap, 0 Capsule Refill(s), [Flomax] Pharmacy: [facility], 167.64, cm, 05/30/21 13:38:00 ROLLER HAND, Height, 79.545, kg, 05/30/21 13:38:00 ROLLER HAND, Weight Sulfamethox 2020-06 Yes 1 tab, PO, Memoria azole 800 2-07 BID, for l MG / 20:40: UTI, X 3 [place] Trimethopri day, # 6 m 160 MG tab, 0 Oral Tablet Refill(s), [Bactrim] Pharmacy: [facility], 167.64, cm, 05/30/21 13:38:00 ROLLER HAND, Height, 79.545, kg, 05/30/21 13:38:00 ROLLER HAND, Weight Tamsulosin 2020-06 Yes 0.4 mg = 1 M emoria hydrochlori 2-07 cap, PO, l de 0.4 MG 20:40: Daily, # 7 He rmann Oral 00 cap, 0 Capsule Refill(s), [Flomax] Pharmacy: [facility], 167.64, cm, 05/30/21 13:38:00 ROLLER HAND, Height, 79.545, kg, 05/30/21 13:38:00 ROLLER HAND, Weight Sulfamethox 2020-06 Yes 1 tab, PO, Memoria azole 800 2-07 BID, for l MG / 20:40: UTI, X 3 [place] Trimethopri 00 day, # 6 m 160 MG tab, 0 Oral Tablet Refill(s), [Bactrim] Pharmacy: [facility], 167.64, cm, 05/30/21 13:38:00 ROLLER HAND, Height, 79.545, kg, 05/30/21 13:38:00 ROLLER HAND, Weight Tamsulosin 2020-06 Yes 0.4 mg = 1 M emoria hydrochlori 2-07 cap, PO, l de 0.4 MG 20:40: Daily, # 7 He rmann Oral 00 cap, 0 Capsule Refill(s), [Flomax] Pharmacy: [facility], 167.64, cm, 05/30/21 13:38:00 ROLLER HAND, Height, 79.545, kg, 05/30/21 13:38:00 ROLLER HAND, Weight Sulfamethox 2020-06 Yes 1 tab, PO, Memoria azole 800 2-07 BID, for l MG / 20:40: UTI, X 3 Ran Trimethopri 00 day, # 6 m 160 MG tab, 0 Oral Tablet Refill(s), [Bactrim] Pharmacy: [facility], 167.64, cm, 05/30/21 13:38:00 ROLLER HAND, Height, 79.545, kg, 05/30/21 13:38:00 ROLLER HAND, Weight Tamsulosin 2020-06 Yes 0.4 mg = 1 M emoria hydrochlori 2-07 cap, PO, l de 0.4 MG 20:40: Daily, # 7 He rmann Oral 00 cap, 0 Capsule Refill(s), [Flomax] Pharmacy: [facility], 167.64, cm, 05/30/21 13:38:00 ROLLER HAND, Height, 79.545, kg, 05/30/21 13:38:00 ROLLER HAND, Weight Sulfamethox 2020-06 Yes 1 tab, PO, Memoria azole 800 2-07 BID, for l MG / 20:40: UTI, X 3 [place] Trimethopri 00 day, # 6 m 160 MG tab, 0 Oral Tablet Refill(s), [Bactrim] Pharmacy: [facility], 167.64, cm, 05/30/21 13:38:00 ROLLER HAND, Height, 79.545, kg, 05/30/21 13:38:00 ROLLER HAND, Weight Tamsulosin 2020-06 Yes 0.4 mg = 1 M emoria hydrochlori 2-07 cap, PO, l de 0.4 MG 20:40: Daily, # 7 He rmann Oral 00 cap, 0 Capsule Refill(s), [Flomax] Pharmacy: [facility], 167.64, cm, 05/30/21 13:38:00 ROLLER HAND, Height, 79.545, kg, 05/30/21 13:38:00 ROLLER HAND, Weight Sulfamethox 2020-06 Yes 1 tab, PO, Memoria azole 800 2-07 BID, for l MG / 20:40: UTI, X 3 [place] Trimethopri 00 day, # 6 m 160 MG tab, 0 Oral Tablet Refill(s), [Bactrim] Pharmacy: [facility], 167.64, cm, 05/30/21 13:38:00 ROLLER HAND, Height, 79.545, kg, 05/30/21 13:38:00 ROLLER HAND, Weight Tamsulosin 2020-06 Yes 0.4 mg = 1 M emoria hydrochlori 2-07 cap, PO, l de 0.4 MG 20:40: Daily, # 7 He rmann Oral 00 cap, 0 Capsule Refill(s), [Flomax] Pharmacy: [facility], 167.64, cm, 05/30/21 13:38:00 ROLLER HAND, Height, 79.545, kg, 05/30/21 13:38:00 ROLLER HAND, Weight Sulfamethox 2020-06 Yes 1 tab, PO, Memoria azole 800 2-07 BID, for l MG / 20:40: UTI, X 3 [place] Trimethopri 00 day, # 6 m 160 MG tab, 0 Oral Tablet Refill(s), [Bactrim] Pharmacy: [facility], 167.64, cm, 05/30/21 13:38:00 ROLLER HAND, Height, 79.545, kg, 05/30/21 13:38:00 ROLLER HAND, Weight Tamsulosin 2020-06 Yes 0.4 mg = 1 M emoria hydrochlori 2-07 cap, PO, l de 0.4 MG 20:40: Daily, # 7 He rmann Oral 00 cap, 0 Capsule Refill(s), [Flomax] Pharmacy: [facility], 167.64, cm, 05/30/21 13:38:00 ROLLER HAND, Height, 79.545, kg, 05/30/21 13:38:00 ROLLER HAND, Weight Sulfamethox 2020-06 Yes 1 tab, PO, Memoria azole 800 2-07 BID, for l MG / 20:40: UTI, X 3 [place] Trimethopri 00 day, # 6 m 160 MG tab, 0 Oral Tablet Refill(s), [Bactrim] Pharmacy: [facility], 167.64, cm, 05/30/21 13:38:00 ROLLER HAND, Height, 79.545, kg, 05/30/21 13:38:00 ROLLER HAND, Weight Tamsulosin 2020-06 Yes 0.4 mg = 1 M emoria hydrochlori 2-07 cap, PO, l de 0.4 MG 20:40: Daily, # 7 He rmann Oral 00 cap, 0 Capsule Refill(s), [Flomax] Pharmacy: [facility], 167.64, cm, 05/30/21 13:38:00 ROLLER HAND, Height, 79.545, kg, 05/30/21 13:38:00 ROLLER HAND, Weight Sulfamethox 2020-06 Yes 1 tab, PO, Memoria azole 800 2-07 BID, for l MG / 20:40: UTI, X 3 [place] Trimethopri 00 day, # 6 m 160 MG tab, 0 Oral Tablet Refill(s), [Bactrim] Pharmacy: [facility], 167.64, cm, 05/30/21 13:38:00 ROLLER HAND, Height, 79.545, kg, 05/30/21 13:38:00 ROLLER HAND, Weight Tamsulosin 2020-06 Yes 0.4 mg = 1 M emoria hydrochlori 2-07 cap, PO, l de 0.4 MG 20:40: Daily, # 7 He rmann Oral 00 cap, 0 Capsule Refill(s), [Flomax] Pharmacy: [facility], 167.64, cm, 05/30/21 13:38:00 ROLLER HAND, Height, 79.545, kg, 05/30/21 13:38:00 ROLLER HAND, Weight Sulfamethox 2020-06 Yes 1 tab, PO, Memoria azole 800 2-07 BID, for l MG / 20:40: UTI, X 3 [place] Trimethopri 00 day, # 6 m 160 MG tab, 0 Oral Tablet Refill(s), [Bactrim] Pharmacy: [facility], 167.64, cm, 05/30/21 13:38:00 ROLLER HAND, Height, 79.545, kg, 05/30/21 13:38:00 ROLLER HAND, Weight Tamsulosin 2020-06 Yes 0.4 mg = 1 M emoria hydrochlori 2-07 cap, PO, l de 0.4 MG 20:40: Daily, # 7 He rmann Oral 00 cap, 0 Capsule Refill(s), [Flomax] Pharmacy: [facility], 167.64, cm, 05/30/21 13:38:00 ROLLER HAND, Height, 79.545, kg, 05/30/21 13:38:00 ROLLER HAND, Weight Sulfamethox 2020-06 Yes 1 tab, PO, Memoria azole 800 2-07 BID, for l MG / 20:40: UTI, X 3 [place] Trimethopri day, # 6 m 160 MG tab, 0 Oral Tablet Refill(s), [Bactrim] Pharmacy: [facility], 167.64, cm, 05/30/21 13:38:00 ROLLER HAND, Height, 79.545, kg, 05/30/21 13:38:00 ROLLER HAND, Weight Tamsulosin 2020-06 Yes 0.4 mg = 1 M emoria hydrochlori 2-07 cap, PO, l de 0.4 MG 20:40: Daily, # 7 He rmann Oral 00 cap, 0 Capsule Refill(s), [Flomax] Pharmacy: [facility], 167.64, cm, 05/30/21 13:38:00 ROLLER HAND, Height, 79.545, kg, 05/30/21 13:38:00 ROLLER HAND, Weight Sulfamethox 2020-06 Yes 1 tab, PO, Memoria azole 800 2-07 BID, for l MG / 20:40: UTI, X 3 [place] Trimethopri 00 day, # 6 m 160 MG tab, 0 Oral Tablet Refill(s), [Bactrim] Pharmacy: [facility], 167.64, cm, 05/30/21 13:38:00 ROLLER HAND, Height, 79.545, kg, 05/30/21 13:38:00 ROLLER HAND, Weight Tamsulosin 2020-06 Yes 0.4 mg = 1 M emoria hydrochlori 2-07 cap, PO, l de 0.4 MG 20:40: Daily, # 7 He rmann Oral 00 cap, 0 Capsule Refill(s), [Flomax] Pharmacy: [facility], 167.64, cm, 05/30/21 13:38:00 ROLLER HAND, Height, 79.545, kg, 05/30/21 13:38:00 ROLLER HAND, Weight Sulfamethox 2020-06 Yes 1 tab, PO, Memoria azole 800 2-07 BID, for l MG / 20:40: UTI, X 3 [place] Trimethopri day, # 6 m 160 MG tab, 0 Oral Tablet Refill(s), [Bactrim] Pharmacy: [facility], 167.64, cm, 05/30/21 13:38:00 ROLLER HAND, Height, 79.545, kg, 05/30/21 13:38:00 ROLLER HAND, Weight Tamsulosin 2020-06 Yes 0.4 mg = 1 M emoria hydrochlori 2-07 cap, PO, l de 0.4 MG 20:40: Daily, # 7 He rmann Oral 00 cap, 0 Capsule Refill(s), [Flomax] Pharmacy: [facility], 167.64, cm, 05/30/21 13:38:00 ROLLER HAND, Height, 79.545, kg, 05/30/21 13:38:00 ROLLER HAND, Weight Sulfamethox 2020-06 Yes 1 tab, PO, Memoria azole 800 2-07 BID, for l MG / 20:40: UTI, X 3 [place] Trimethopri 00 day, # 6 m 160 MG tab, 0 Oral Tablet Refill(s), [Bactrim] Pharmacy: [facility], 167.64, cm, 05/30/21 13:38:00 ROLLER HAND, Height, 79.545, kg, 05/30/21 13:38:00 ROLLER HAND, Weight Tamsulosin 2020-06 Yes 0.4 mg = 1 M emoria hydrochlori 2-07 cap, PO, l de 0.4 MG 20:40: Daily, # 7 He rmann Oral 00 cap, 0 Capsule Refill(s), [Flomax] Pharmacy: [facility], 167.64, cm, 05/30/21 13:38:00 ROLLER HAND, Height, 79.545, kg, 05/30/21 13:38:00 ROLLER HAND, Weight Sulfamethox 2020-06 Yes 1 tab, PO, Memoria azole 800 2-07 BID, for l MG / 20:40: UTI, X 3 [place] Trimethopri day, # 6 m 160 MG tab, 0 Oral Tablet Refill(s), [Bactrim] Pharmacy: [facility], 167.64, cm, 05/30/21 13:38:00 ROLLER HAND, Height, 79.545, kg, 05/30/21 13:38:00 ROLLER HAND, Weight Tamsulosin 2020-06 Yes 0.4 mg = 1 M emoria hydrochlori 2-07 cap, PO, l de 0.4 MG 20:40: Daily, # 7 He rmann Oral 00 cap, 0 Capsule Refill(s), [Flomax] Pharmacy: [facility], 167.64, cm, 05/30/21 13:38:00 ROLLER HAND, Height, 79.545, kg, 05/30/21 13:38:00 ROLLER HAND, Weight Sulfamethox 2020-06 Yes 1 tab, PO, Memoria azole 800 2-07 BID, for l MG / 20:40: UTI, X 3 [place] Trimethopri day, # 6 m 160 MG tab, 0 Oral Tablet Refill(s), [Bactrim] Pharmacy: [facility], 167.64, cm, 05/30/21 13:38:00 ROLLER HAND, Height, 79.545, kg, 05/30/21 13:38:00 ROLLER HAND, Weight Tamsulosin 2020-06 Yes 0.4 mg = 1 M emoria hydrochlori 2-07 cap, PO, l de 0.4 MG 20:40: Daily, # 7 He rmann Oral 00 cap, 0 Capsule Refill(s), [Flomax] Pharmacy: [facility], 167.64, cm, 05/30/21 13:38:00 ROLLER HAND, Height, 79.545, kg, 05/30/21 13:38:00 ROLLER HAND, Weight Sulfamethox 2020-06 Yes 1 tab, PO, Memoria azole 800 2-07 BID, for l MG / 20:40: UTI, X 3 [place] Trimethopri 00 day, # 6 m 160 MG tab, 0 Oral Tablet Refill(s), [Bactrim] Pharmacy: [facility], 167.64, cm, 05/30/21 13:38:00 ROLLER HAND, Height, 79.545, kg, 05/30/21 13:38:00 ROLLER HAND, Weight Tamsulosin 2020-06 Yes 0.4 mg = 1 M emoria hydrochlori 2-07 cap, PO, l de 0.4 MG 20:40: Daily, # 7 He rmann Oral 00 cap, 0 Capsule Refill(s), [Flomax] Pharmacy: [facility], 167.64, cm, 05/30/21 13:38:00 ROLLER HAND, Height, 79.545, kg, 05/30/21 13:38:00 ROLLER HAND, Weight Sulfamethox 2020-06 Yes 1 tab, PO, Memoria azole 800 2-07 BID, for l MG / 20:40: UTI, X 3 [place] Trimethopri 00 day, # 6 m 160 MG tab, 0 Oral Tablet Refill(s), [Bactrim] Pharmacy: [facility], 167.64, cm, 05/30/21 13:38:00 ROLLER HAND, Height, 79.545, kg, 05/30/21 13:38:00 ROLLER HAND, Weight Tamsulosin 2020-06 Yes 0.4 mg = 1 M emoria hydrochlori 2-07 cap, PO, l de 0.4 MG 20:40: Daily, # 7 He rmann Oral 00 cap, 0 Capsule Refill(s), [Flomax] Pharmacy: [facility], 167.64, cm, 05/30/21 13:38:00 ROLLER HAND, Height, 79.545, kg, 05/30/21 13:38:00 ROLLER HAND, Weight Sulfamethox 2020-06 Yes 1 tab, PO, Memoria azole 800 2-07 BID, for l MG / 20:40: UTI, X 3 [place] Trimethopri 00 day, # 6 m 160 MG tab, 0 Oral Tablet Refill(s), [Bactrim] Pharmacy: [facility], 167.64, cm, 05/30/21 13:38:00 ROLLER HAND, Height, 79.545, kg, 05/30/21 13:38:00 ROLLER HAND, Weight Tamsulosin 2020-06 Yes 0.4 mg = 1 M emoria hydrochlori 2-07 cap, PO, l de 0.4 MG 20:40: Daily, # 7 He rmann Oral 00 cap, 0 Capsule Refill(s), [Flomax] Pharmacy: [facility], 167.64, cm, 05/30/21 13:38:00 ROLLER HAND, Height, 79.545, kg, 05/30/21 13:38:00 ROLLER HAND, Weight Sulfamethox 2020-06 Yes 1 tab, PO, Memoria azole 800 2-07 BID, for l MG / 20:40: UTI, X 3 [place] Trimethopri day, # 6 m 160 MG tab, 0 Oral Tablet Refill(s), [Bactrim] Pharmacy: [facility], 167.64, cm, 05/30/21 13:38:00 ROLLER HAND, Height, 79.545, kg, 05/30/21 13:38:00 ROLLER HAND, Weight Tamsulosin 2020-06 Yes 0.4 mg = 1 M emoria hydrochlori 2-07 cap, PO, l de 0.4 MG 20:40: Daily, # 7 He rmann Oral 00 cap, 0 Capsule Refill(s), [Flomax] Pharmacy: [facility], 167.64, cm, 05/30/21 13:38:00 ROLLER HAND, Height, 79.545, kg, 05/30/21 13:38:00 ROLLER HAND, Weight Sulfamethox 2020-06 Yes 1 tab, PO, Memoria azole 800 2-07 BID, for l MG / 20:40: UTI, X 3 [place] Trimethopri 00 day, # 6 m 160 MG tab, 0 Oral Tablet Refill(s), [Bactrim] Pharmacy: [facility], 167.64, cm, 05/30/21 13:38:00 ROLLER HAND, Height, 79.545, kg, 05/30/21 13:38:00 ROLLER HAND, Weight Tamsulosin 2020-06 Yes 0.4 mg = 1 M emoria hydrochlori 2-07 cap, PO, l de 0.4 MG 20:40: Daily, # 7 He rmann Oral 00 cap, 0 Capsule Refill(s), [Flomax] Pharmacy: [facility], 167.64, cm, 05/30/21 13:38:00 ROLLER HAND, Height, 79.545, kg, 05/30/21 13:38:00 ROLLER HAND, Weight Sulfamethox 2020-06 Yes 1 tab, PO, Memoria azole 800 2-07 BID, for l MG / 20:40: UTI, X 3 [place] Trimethopri 00 day, # 6 m 160 MG tab, 0 Oral Tablet Refill(s), [Bactrim] Pharmacy: [facility], 167.64, cm, 05/30/21 13:38:00 ROLLER HAND, Height, 79.545, kg, 05/30/21 13:38:00 ROLLER HAND, Weight Tamsulosin 2020-06 Yes 0.4 mg = 1 M emoria hydrochlori 2-07 cap, PO, l de 0.4 MG 20:40: Daily, # 7 He rmann Oral 00 cap, 0 Capsule Refill(s), [Flomax] Pharmacy: [facility], 167.64, cm, 05/30/21 13:38:00 ROLLER HAND, Height, 79.545, kg, 05/30/21 13:38:00 ROLLER HAND, Weight Sulfamethox 2020-06 Yes 1 tab, PO, Memoria azole 800 2-07 BID, for l MG / 20:40: UTI, X 3 [place] Trimethopri 00 day, # 6 m 160 MG tab, 0 Oral Tablet Refill(s), [Bactrim] Pharmacy: [facility], 167.64, cm, 05/30/21 13:38:00 ROLLER HAND, Height, 79.545, kg, 05/30/21 13:38:00 ROLLER HAND, Weight Tamsulosin 2020-06 Yes 0.4 mg = 1 M emoria hydrochlori 2-07 cap, PO, l de 0.4 MG 20:40: Daily, # 7 He rmann Oral 00 cap, 0 Capsule Refill(s), [Flomax] Pharmacy: [facility], 167.64, cm, 05/30/21 13:38:00 ROLLER HAND, Height, 79.545, kg, 05/30/21 13:38:00 ROLLER HAND, Weight Sulfamethox 2020-06 Yes 1 tab, PO, Memoria azole 800 2-07 BID, for l MG / 20:40: UTI, X 3 [place] Trimethopri 00 day, # 6 m 160 MG tab, 0 Oral Tablet Refill(s), [Bactrim] Pharmacy: [facility], 167.64, cm, 05/30/21 13:38:00 ROLLER HAND, Height, 79.545, kg, 05/30/21 13:38:00 ROLLER HAND, Weight Tamsulosin 2020-06 Yes 0.4 mg = 1 M emoria hydrochlori 2-07 cap, PO, l de 0.4 MG 20:40: Daily, # 7 He rmann Oral 00 cap, 0 Capsule Refill(s), [Flomax] Pharmacy: [facility], 167.64, cm, 05/30/21 13:38:00 ROLLER HAND, Height, 79.545, kg, 05/30/21 13:38:00 ROLLER HAND, Weight Sulfamethox 2020-06 Yes 1 tab, PO, Memoria azole 800 2-07 BID, for l MG / 20:40: UTI, X 3 [place] Trimethopri 00 day, # 6 m 160 MG tab, 0 Oral Tablet Refill(s), [Bactrim] Pharmacy: [facility], 167.64, cm, 05/30/21 13:38:00 ROLLER HAND, Height, 79.545, kg, 05/30/21 13:38:00 ROLLER HAND, Weight Tamsulosin 2020-06 Yes 0.4 mg = 1 M emoria hydrochlori 2-07 cap, PO, l de 0.4 MG 20:40: Daily, # 7 He rmann Oral 00 cap, 0 Capsule Refill(s), [Flomax] Pharmacy: [facility], 167.64, cm, 05/30/21 13:38:00 ROLLER HAND, Height, 79.545, kg, 05/30/21 13:38:00 ROLLER HAND, Weight Sulfamethox 2020-06 Yes 1 tab, PO, Memoria azole 800 2-07 BID, for l MG / 20:40: UTI, X 3 [place] Trimethopri 00 day, # 6 m 160 MG tab, 0 Oral Tablet Refill(s), [Bactrim] Pharmacy: [facility], 167.64, cm, 05/30/21 13:38:00 ROLLER HAND, Height, 79.545, kg, 05/30/21 13:38:00 ROLLER HAND, Weight Tamsulosin 2020-06 Yes 0.4 mg = 1 M emoria hydrochlori 2-07 cap, PO, l de 0.4 MG 20:40: Daily, # 7 He rmann Oral 00 cap, 0 Capsule Refill(s), [Flomax] Pharmacy: [facility], 167.64, cm, 05/30/21 13:38:00 ROLLER HAND, Height, 79.545, kg, 05/30/21 13:38:00 ROLLER HAND, Weight Sulfamethox 2020-06 Yes 1 tab, PO, Memoria azole 800 2-07 BID, for l MG / 20:40: UTI, X 3 [place] Trimethopri day, # 6 m 160 MG tab, 0 Oral Tablet Refill(s), [Bactrim] Pharmacy: [facility], 167.64, cm, 05/30/21 13:38:00 ROLLER HAND, Height, 79.545, kg, 05/30/21 13:38:00 ROLLER HAND, Weight Tamsulosin 2020-06 Yes 0.4 mg = 1 M emoria hydrochlori 2-07 cap, PO, l de 0.4 MG 20:40: Daily, # 7 He rmann Oral 00 cap, 0 Capsule Refill(s), [Flomax] Pharmacy: [facility], 167.64, cm, 05/30/21 13:38:00 ROLLER HAND, Height, 79.545, kg, 05/30/21 13:38:00 ROLLER HAND, Weight Sulfamethox 2020-06 Yes 1 tab, PO, Memoria azole 800 2-07 BID, for l MG / 20:40: UTI, X 3 Ran Trimethopri 00 day, # 6 m 160 MG tab, 0 Oral Tablet Refill(s), [Bactrim] Pharmacy: [facility], 167.64, cm, 05/30/21 13:38:00 ROLLER HAND, Height, 79.545, kg, 05/30/21 13:38:00 ROLLER HAND, Weight Tamsulosin 2020-06 Yes 0.4 mg = 1 M emoria hydrochlori 2-07 cap, PO, l de 0.4 MG 20:40: Daily, # 7 He rmann Oral 00 cap, 0 Capsule Refill(s), [Flomax] Pharmacy: [facility], 167.64, cm, 05/30/21 13:38:00 ROLLER HAND, Height, 79.545, kg, 05/30/21 13:38:00 ROLLER HAND, Weight Sulfamethox 2020-06 Yes 1 tab, PO, Memoria azole 800 2-07 BID, for l MG / 20:40: UTI, X 3 [place] Trimethopri 00 day, # 6 m 160 MG tab, 0 Oral Tablet Refill(s), [Bactrim] Pharmacy: [facility], 167.64, cm, 05/30/21 13:38:00 ROLLER HAND, Height, 79.545, kg, 05/30/21 13:38:00 ROLLER HAND, Weight Tamsulosin 2020-06 Yes 0.4 mg = 1 M emoria hydrochlori 2-07 cap, PO, l de 0.4 MG 20:40: Daily, # 7 He rmann Oral 00 cap, 0 Capsule Refill(s), [Flomax] Pharmacy: [facility], 167.64, cm, 05/30/21 13:38:00 ROLLER HAND, Height, 79.545, kg, 05/30/21 13:38:00 ROLLER HAND, Weight Sulfamethox 2020-06 Yes 1 tab, PO, Memoria azole 800 2-07 BID, for l MG / 20:40: UTI, X 3 [place] Trimethopri 00 day, # 6 m 160 MG tab, 0 Oral Tablet Refill(s), [Bactrim] Pharmacy: [facility], 167.64, cm, 05/30/21 13:38:00 ROLLER HAND, Height, 79.545, kg, 05/30/21 13:38:00 ROLLER HAND, Weight Tamsulosin 2020-06 Yes 0.4 mg = 1 M emoria hydrochlori 2-07 cap, PO, l de 0.4 MG 20:40: Daily, # 7 He rmann Oral 00 cap, 0 Capsule Refill(s), [Flomax] Pharmacy: [facility], 167.64, cm, 05/30/21 13:38:00 ROLLER HAND, Height, 79.545, kg, 05/30/21 13:38:00 ROLLER HAND, Weight amoxicillin 2020-06 Yes [facility] -clavulanat 2-07 Health e 00:00: (Augmentin) 00 500-125 MG tablet sulfamethox 2020-06 Yes [facility] azole-trime 2 Health thoprim 00:00: (Bactrim 00 DS) 800-160 MG tablet tamsulosin 2020-06 Yes [facility] (Flomax) 2-07 Health 0.4 MG 24 00:00: hr capsule 00 amoxicillin 2020-06 Yes [facility] -clavulanat 2- Health e 00:00: (Augmentin) 00 500-125 MG tablet sulfamethox 2020-06 Yes [facility] azole-trime 2- Health thoprim 00:00: (Bactrim 00 DS) 800-160 MG tablet tamsulosin 2020-06 Yes [facility] (Flomax) 2-07 Health 0.4 MG 24 00:00: hr capsule 00 fluticasone 2020-06 Yes INSTILL [facility] (Flonase) 2-04 ONE (1) Health 50 MCG/ACT 00:00: SPRAY(S) nasal spray 00 INTO EACH NOSTRIL DAILY. fluticasone 2020-06 Yes INSTILL [facility] (Flonase) 2-04 ONE (1) Health 50 MCG/ACT 00:00: SPRAY(S) nasal spray 00 INTO EACH NOSTRIL DAILY. acetic 2020-06 Yes INSTILL [facility] acid-hydroc 2-03 THREE (3) Hea lth ortisone 00:00: DROPS INTO (Vosol-HC) 00 AFFECTED otic EAR 4 solution TIMES PER DAY FOR 10 DAYS. acetic 2020-06 Yes INSTILL [facility] acid-hydroc 2-03 THREE (3) Hea lth ortisone 00:00: DROPS INTO (Vosol-HC) 00 AFFECTED otic EAR 4 solution TIMES PER DAY FOR 10 DAYS. Docusate 2020-06 Yes 100 mg = 1 Mem oria Sodium 100 1-10 cap, PO, l MG Oral 20:40: BID, # 60 Hermila nn Capsule 00 cap, 0 [Colace] Refill(s), Pharmacy: [facility], 170.18, cm, 05/01/21 10:14:00 ROLLER HAND, Height, 79.545, kg, 05/01/21 10:14:00 ROLLER HAND, Weight Docusate 2020-06 Yes 100 mg = 1 Mem oria Sodium 100 1-10 cap, PO, l MG Oral 20:40: BID, # 60 Hermila nn Capsule 00 cap, 0 [Colace] Refill(s), Pharmacy: [facility], 170.18, cm, 05/01/21 10:14:00 ROLLER HAND, Height, 79.545, kg, 05/01/21 10:14:00 ROLLER HAND, Weight Docusate 2020-06 Yes 100 mg = 1 Mem oria Sodium 100 1-10 cap, PO, l MG Oral 20:40: BID, # 60 Hermila nn Capsule 00 cap, 0 [Colace] Refill(s), Pharmacy: [facility], 170.18, cm, 05/01/21 10:14:00 ROLLER HAND, Height, 79.545, kg, 05/01/21 10:14:00 ROLLER HAND, Weight Docusate 2020-06 Yes 100 mg = 1 Mem oria Sodium 100 1-10 cap, PO, l MG Oral 20:40: BID, # 60 Hermila nn Capsule 00 cap, 0 [Colace] Refill(s), Pharmacy: [facility], 170.18, cm, 05/01/21 10:14:00 ROLLER HAND, Height, 79.545, kg, 05/01/21 10:14:00 ROLLER HAND, Weight Docusate 2020-06 Yes 100 mg = 1 Mem oria Sodium 100 1-10 cap, PO, l MG Oral 20:40: BID, # 60 Hermila nn Capsule 00 cap, 0 [Colace] Refill(s), Pharmacy: [facility], 170.18, cm, 05/01/21 10:14:00 ROLLER HAND, Height, 79.545, kg, 05/01/21 10:14:00 ROLLER HAND, Weight Docusate 2020-06 Yes 100 mg = 1 Mem oria Sodium 100 1-10 cap, PO, l MG Oral 20:40: BID, # 60 Hermila nn Capsule 00 cap, 0 [Colace] Refill(s), Pharmacy: [facility], 170.18, cm, 05/01/21 10:14:00 ROLLER HAND, Height, 79.545, kg, 05/01/21 10:14:00 ROLLER HAND, Weight Docusate 2020-06 Yes 100 mg = 1 Mem oria Sodium 100 1-10 cap, PO, l MG Oral 20:40: BID, # 60 Hermila nn Capsule 00 cap, 0 [Colace] Refill(s), Pharmacy: [facility], 170.18, cm, 05/01/21 10:14:00 ROLLER HAND, Height, 79.545, kg, 05/01/21 10:14:00 ROLLER HAND, Weight Docusate 2020-06 Yes 100 mg = 1 Mem oria Sodium 100 1-10 cap, PO, l MG Oral 20:40: BID, # 60 Hermila nn Capsule 00 cap, 0 [Colace] Refill(s), Pharmacy: [facility], 170.18, cm, 05/01/21 10:14:00 ROLLER HAND, Height, 79.545, kg, 05/01/21 10:14:00 ROLLER HAND, Weight Docusate 2020-06 Yes 100 mg = 1 Mem oria Sodium 100 1-10 cap, PO, l MG Oral 20:40: BID, # 60 Hermila nn Capsule 00 cap, 0 [Colace] Refill(s), Pharmacy: [facility], 170.18, cm, 05/01/21 10:14:00 ROLLER HAND, Height, 79.545, kg, 05/01/21 10:14:00 ROLLER HAND, Weight Docusate 2020-06 Yes 100 mg = 1 Mem oria Sodium 100 1-10 cap, PO, l MG Oral 20:40: BID, # 60 Hermila nn Capsule 00 cap, 0 [Colace] Refill(s), Pharmacy: [facility], 170.18, cm, 05/01/21 10:14:00 ROLLER HAND, Height, 79.545, kg, 05/01/21 10:14:00 ROLLER HAND, Weight Docusate 2020-06 Yes 100 mg = 1 Mem oria Sodium 100 1-10 cap, PO, l MG Oral 20:40: BID, # 60 Hermila nn Capsule 00 cap, 0 [Colace] Refill(s), Pharmacy: [facility], 170.18, cm, 05/01/21 10:14:00 ROLLER HAND, Height, 79.545, kg, 05/01/21 10:14:00 ROLLER HAND, Weight Docusate 2020-06 Yes 100 mg = 1 Mem oria Sodium 100 1-10 cap, PO, l MG Oral 20:40: BID, # 60 Hermila nn Capsule 00 cap, 0 [Colace] Refill(s), Pharmacy: [facility], 170.18, cm, 05/01/21 10:14:00 ROLLER HAND, Height, 79.545, kg, 05/01/21 10:14:00 ROLLER HAND, Weight Docusate 2020-06 Yes 100 mg = 1 Mem oria Sodium 100 1-10 cap, PO, l MG Oral 20:40: BID, # 60 Hermila nn Capsule 00 cap, 0 [Colace] Refill(s), Pharmacy: [facility], 170.18, cm, 05/01/21 10:14:00 ROLLER HAND, Height, 79.545, kg, 05/01/21 10:14:00 ROLLER HAND, Weight Docusate 2020-06 Yes 100 mg = 1 Mem oria Sodium 100 1-10 cap, PO, l MG Oral 20:40: BID, # 60 Hermila nn Capsule 00 cap, 0 [Colace] Refill(s), Pharmacy: [facility], 170.18, cm, 05/01/21 10:14:00 ROLLER HAND, Height, 79.545, kg, 05/01/21 10:14:00 ROLLER HAND, Weight Docusate 2020-06 Yes 100 mg = 1 Mem oria Sodium 100 1-10 cap, PO, l MG Oral 20:40: BID, # 60 Hermila nn Capsule 00 cap, 0 [Colace] Refill(s), Pharmacy: [facility], 170.18, cm, 05/01/21 10:14:00 ROLLER HAND, Height, 79.545, kg, 05/01/21 10:14:00 ROLLER HAND, Weight Docusate 2020-06 Yes 100 mg = 1 Mem oria Sodium 100 1-10 cap, PO, l MG Oral 20:40: BID, # 60 Hermila nn Capsule 00 cap, 0 [Colace] Refill(s), Pharmacy: [facility], 170.18, cm, 05/01/21 10:14:00 ROLLER HAND, Height, 79.545, kg, 05/01/21 10:14:00 ROLLER HAND, Weight Docusate 2020-06 Yes 100 mg = 1 Mem oria Sodium 100 1-10 cap, PO, l MG Oral 20:40: BID, # 60 Hermila nn Capsule 00 cap, 0 [Colace] Refill(s), Pharmacy: [facility], 170.18, cm, 05/01/21 10:14:00 ROLLER HAND, Height, 79.545, kg, 05/01/21 10:14:00 ROLLER HAND, Weight Docusate 2020-06 Yes 100 mg = 1 Mem oria Sodium 100 1-10 cap, PO, l MG Oral 20:40: BID, # 60 Hermila nn Capsule 00 cap, 0 [Colace] Refill(s), Pharmacy: [facility], 170.18, cm, 05/01/21 10:14:00 ROLLER HAND, Height, 79.545, kg, 05/01/21 10:14:00 ROLLER HAND, Weight Docusate 2020-06 Yes 100 mg = 1 Mem oria Sodium 100 1-10 cap, PO, l MG Oral 20:40: BID, # 60 Hermila nn Capsule 00 cap, 0 [Colace] Refill(s), Pharmacy: [facility], 170.18, cm, 05/01/21 10:14:00 ROLLER HAND, Height, 79.545, kg, 05/01/21 10:14:00 ROLLER HAND, Weight Docusate 2020-06 Yes 100 mg = 1 Mem oria Sodium 100 1-10 cap, PO, l MG Oral 20:40: BID, # 60 Hermila nn Capsule 00 cap, 0 [Colace] Refill(s), Pharmacy: [facility], 170.18, cm, 05/01/21 10:14:00 ROLLER HAND, Height, 79.545, kg, 05/01/21 10:14:00 ROLLER HAND, Weight Docusate 2020-06 Yes 100 mg = 1 Mem oria Sodium 100 1-10 cap, PO, l MG Oral 20:40: BID, # 60 Hermila nn Capsule 00 cap, 0 [Colace] Refill(s), Pharmacy: [facility], 170.18, cm, 05/01/21 10:14:00 ROLLER HAND, Height, 79.545, kg, 05/01/21 10:14:00 ROLLER HAND, Weight Docusate 2020-06 Yes 100 mg = 1 Mem oria Sodium 100 1-10 cap, PO, l MG Oral 20:40: BID, # 60 Hermila nn Capsule 00 cap, 0 [Colace] Refill(s), Pharmacy: [facility], 170.18, cm, 05/01/21 10:14:00 ROLLER HAND, Height, 79.545, kg, 05/01/21 10:14:00 ROLLER HAND, Weight Docusate 2020-06 Yes 100 mg = 1 Mem oria Sodium 100 1-10 cap, PO, l MG Oral 20:40: BID, # 60 Hermila nn Capsule 00 cap, 0 [Colace] Refill(s), Pharmacy: [facility], 170.18, cm, 05/01/21 10:14:00 ROLLER HAND, Height, 79.545, kg, 05/01/21 10:14:00 ROLLER HAND, Weight Docusate 2020-06 Yes 100 mg = 1 Mem oria Sodium 100 1-10 cap, PO, l MG Oral 20:40: BID, # 60 Hermila nn Capsule 00 cap, 0 [Colace] Refill(s), Pharmacy: [facility], 170.18, cm, 05/01/21 10:14:00 ROLLER HAND, Height, 79.545, kg, 05/01/21 10:14:00 ROLLER HAND, Weight Docusate 2020-06 Yes 100 mg = 1 Mem oria Sodium 100 1-10 cap, PO, l MG Oral 20:40: BID, # 60 Hermila nn Capsule 00 cap, 0 [Colace] Refill(s), Pharmacy: [facility], 170.18, cm, 05/01/21 10:14:00 ROLLER HAND, Height, 79.545, kg, 05/01/21 10:14:00 ROLLER HAND, Weight Docusate 2020-06 Yes 100 mg = 1 Mem oria Sodium 100 1-10 cap, PO, l MG Oral 20:40: BID, # 60 Hermila nn Capsule 00 cap, 0 [Colace] Refill(s), Pharmacy: [facility], 170.18, cm, 05/01/21 10:14:00 ROLLER HAND, Height, 79.545, kg, 05/01/21 10:14:00 ROLLER HAND, Weight Docusate 2020-06 Yes 100 mg = 1 Mem oria Sodium 100 1-10 cap, PO, l MG Oral 20:40: BID, # 60 Hermila nn Capsule 00 cap, 0 [Colace] Refill(s), Pharmacy: [facility], 170.18, cm, 05/01/21 10:14:00 ROLLER HAND, Height, 79.545, kg, 05/01/21 10:14:00 ROLLER HAND, Weight Docusate 2020-06 Yes 100 mg = 1 Mem oria Sodium 100 1-10 cap, PO, l MG Oral 20:40: BID, # 60 Hermila nn Capsule 00 cap, 0 [Colace] Refill(s), Pharmacy: [facility], 170.18, cm, 05/01/21 10:14:00 ROLLER HAND, Height, 79.545, kg, 05/01/21 10:14:00 ROLLER HAND, Weight Docusate 2020-06 Yes 100 mg = 1 Mem oria Sodium 100 1-10 cap, PO, l MG Oral 20:40: BID, # 60 Hermila nn Capsule 00 cap, 0 [Colace] Refill(s), Pharmacy: [facility], 170.18, cm, 05/01/21 10:14:00 ROLLER HAND, Height, 79.545, kg, 05/01/21 10:14:00 ROLLER HAND, Weight Docusate 2020-06 Yes 100 mg = 1 Mem oria Sodium 100 1-10 cap, PO, l MG Oral 20:40: BID, # 60 Hermila nn Capsule 00 cap, 0 [Colace] Refill(s), Pharmacy: [facility], 170.18, cm, 05/01/21 10:14:00 ROLLER HAND, Height, 79.545, kg, 05/01/21 10:14:00 ROLLER HAND, Weight Docusate 2020-06 Yes 100 mg = 1 Mem oria Sodium 100 1-10 cap, PO, l MG Oral 20:40: BID, # 60 Hermila nn Capsule 00 cap, 0 [Colace] Refill(s), Pharmacy: [facility], 170.18, cm, 05/01/21 10:14:00 ROLLER HAND, Height, 79.545, kg, 05/01/21 10:14:00 ROLLER HAND, Weight Docusate 2020-06 Yes 100 mg = 1 Mem oria Sodium 100 1-10 cap, PO, l MG Oral 20:40: BID, # 60 Hermila nn Capsule 00 cap, 0 [Colace] Refill(s), Pharmacy: [facility], 170.18, cm, 05/01/21 10:14:00 ROLLER HAND, Height, 79.545, kg, 05/01/21 10:14:00 ROLLER HAND, Weight Docusate 2020-06 Yes 100 mg = 1 Mem oria Sodium 100 1-10 cap, PO, l MG Oral 20:40: BID, # 60 Hermila nn Capsule 00 cap, 0 [Colace] Refill(s), Pharmacy: [facility], 170.18, cm, 05/01/21 10:14:00 ROLLER HAND, Height, 79.545, kg, 05/01/21 10:14:00 ROLLER HAND, Weight Docusate 2020-06 Yes 100 mg = 1 Mem oria Sodium 100 1-10 cap, PO, l MG Oral 20:40: BID, # 60 Hermila nn Capsule 00 cap, 0 [Colace] Refill(s), Pharmacy: [facility], 170.18, cm, 05/01/21 10:14:00 ROLLER HAND, Height, 79.545, kg, 05/01/21 10:14:00 ROLLER HAND, Weight Docusate 2020-06 Yes 100 mg = 1 Mem oria Sodium 100 1-10 cap, PO, l MG Oral 20:40: BID, # 60 Hermila nn Capsule 00 cap, 0 [Colace] Refill(s), Pharmacy: [facility], 170.18, cm, 05/01/21 10:14:00 ROLLER HAND, Height, 79.545, kg, 05/01/21 10:14:00 ROLLER HAND, Weight Docusate 2020-06 Yes 100 mg = 1 Mem oria Sodium 100 1-10 cap, PO, l MG Oral 20:40: BID, # 60 Hermila nn Capsule 00 cap, 0 [Colace] Refill(s), Pharmacy: [facility], 170.18, cm, 05/01/21 10:14:00 ROLLER HAND, Height, 79.545, kg, 05/01/21 10:14:00 ROLLER HAND, Weight Docusate 2020-06 Yes 100 mg = 1 Mem oria Sodium 100 1-10 cap, PO, l MG Oral 20:40: BID, # 60 Hermila nn Capsule 00 cap, 0 [Colace] Refill(s), Pharmacy: [facility], 170.18, cm, 05/01/21 10:14:00 ROLLER HAND, Height, 79.545, kg, 05/01/21 10:14:00 ROLLER HAND, Weight Docusate 2020-06 Yes 100 mg = 1 Mem oria Sodium 100 1-10 cap, PO, l MG Oral 20:40: BID, # 60 Hermila nn Capsule 00 cap, 0 [Colace] Refill(s), Pharmacy: [facility], 170.18, cm, 05/01/21 10:14:00 ROLLER HAND, Height, 79.545, kg, 05/01/21 10:14:00 ROLLER HAND, Weight Docusate 2020-06 Yes 100 mg = 1 Mem oria Sodium 100 1-10 cap, PO, l MG Oral 20:40: BID, # 60 Hermila nn Capsule 00 cap, 0 [Colace] Refill(s), Pharmacy: [facility], 170.18, cm, 05/01/21 10:14:00 ROLLER HAND, Height, 79.545, kg, 05/01/21 10:14:00 ROLLER HAND, Weight Docusate 2020-06 Yes 100 mg = 1 Mem oria Sodium 100 1-10 cap, PO, l MG Oral 20:40: BID, # 60 Hermila nn Capsule 00 cap, 0 [Colace] Refill(s), Pharmacy: [facility], 170.18, cm, 05/01/21 10:14:00 ROLLER HAND, Height, 79.545, kg, 05/01/21 10:14:00 ROLLER HAND, Weight Phenazopyri 2020-06 No 200 mg = 1 Memoria dine 1-10 tab, PO, l hydrochlori 20:34: TID, PRN He rmann de 200 MG 00 Dysuria, X Oral Tablet 4 day, # [Pyridium] 12 tab, 0 Refill(s), Pharmacy: [facility], 170.18, cm, 05/01/21 10:14:00 ROLLER HAND, Height, 79.545, kg, 05/01/21 10:14:00 ROLLER HAND, Weight Hyoscyamine 2020-06 Yes 0.125 mg = Memoria Sulfate 1-10 1 tab, SL, l 0.125 MG 20:34: Q4H, PRN Hermila nn Sublingual 00 Bladder Tablet Spasm, # [Levsin] 30 tab, 1 Refill(s), Pharmacy: [facility], 170.18, cm, 05/01/21 10:14:00 ROLLER HAND, Height, 79.545, kg, 05/01/21 10:14:00 ROLLER HAND, Weight Phenazopyri 2020-06 No 200 mg = 1 Memoria dine 1-10 tab, PO, l hydrochlori 20:34: TID, PRN He rmann de 200 MG 00 Dysuria, X Oral Tablet 4 day, # [Pyridium] 12 tab, 0 Refill(s), Pharmacy: [facility], 170.18, cm, 05/01/21 10:14:00 ROLLER HAND, Height, 79.545, kg, 05/01/21 10:14:00 ROLLER HAND, Weight Hyoscyamine 2020-06 Yes 0.125 mg = Memoria Sulfate 1-10 1 tab, SL, l 0.125 MG 20:34: Q4H, PRN Hermila nn Sublingual 00 Bladder Tablet Spasm, # [Levsin] 30 tab, 1 Refill(s), Pharmacy: [facility], 170.18, cm, 05/01/21 10:14:00 ROLLER HAND, Height, 79.545, kg, 05/01/21 10:14:00 ROLLER HAND, Weight Phenazopyri 2020-06 No 200 mg = 1 Memoria dine 1-10 tab, PO, l hydrochlori 20:34: TID, PRN He rmann de 200 MG 00 Dysuria, X Oral Tablet 4 day, # [Pyridium] 12 tab, 0 Refill(s), Pharmacy: [facility], 170.18, cm, 05/01/21 10:14:00 ROLLER HAND, Height, 79.545, kg, 05/01/21 10:14:00 ROLLER HAND, Weight Hyoscyamine 2020-06 Yes 0.125 mg = Memoria Sulfate 1-10 1 tab, SL, l 0.125 MG 20:34: Q4H, PRN Hermila nn Sublingual 00 Bladder Tablet Spasm, # [Levsin] 30 tab, 1 Refill(s), Pharmacy: [facility], 170.18, cm, 05/01/21 10:14:00 ROLLER HAND, Height, 79.545, kg, 05/01/21 10:14:00 ROLLER HAND, Weight Phenazopyri 2020-06 No 200 mg = 1 Memoria dine 1-10 tab, PO, l hydrochlori 20:34: TID, PRN He rmann de 200 MG 00 Dysuria, X Oral Tablet 4 day, # [Pyridium] 12 tab, 0 Refill(s), Pharmacy: [facility], 170.18, cm, 05/01/21 10:14:00 ROLLER HAND, Height, 79.545, kg, 05/01/21 10:14:00 ROLLER HAND, Weight Hyoscyamine 2020-06 Yes 0.125 mg = Memoria Sulfate 1-10 1 tab, SL, l 0.125 MG 20:34: Q4H, PRN Hermila nn Sublingual 00 Bladder Tablet Spasm, # [Levsin] 30 tab, 1 Refill(s), Pharmacy: [facility], 170.18, cm, 05/01/21 10:14:00 ROLLER HAND, Height, 79.545, kg, 05/01/21 10:14:00 ROLLER HAND, Weight Phenazopyri 2020-06 No 200 mg = 1 Memoria dine 1-10 tab, PO, l hydrochlori 20:34: TID, PRN He rmann de 200 MG 00 Dysuria, X Oral Tablet 4 day, # [Pyridium] 12 tab, 0 Refill(s), Pharmacy: [facility], 170.18, cm, 05/01/21 10:14:00 ROLLER HAND, Height, 79.545, kg, 05/01/21 10:14:00 ROLLER HAND, Weight Phenazopyri 2020-06 No 200 mg = 1 Memoria dine 1-10 tab, PO, l hydrochlori 20:34: TID, PRN He rmann de 200 MG 00 Dysuria, X Oral Tablet 4 day, # [Pyridium] 12 tab, 0 Refill(s), Pharmacy: [facility], 170.18, cm, 05/01/21 10:14:00 ROLLER HAND, Height, 79.545, kg, 05/01/21 10:14:00 ROLLER HAND, Weight Hyoscyamine 2020-06 Yes 0.125 mg = Memoria Sulfate 1-10 1 tab, SL, l 0.125 MG 20:34: Q4H, PRN Hermila nn Sublingual 00 Bladder Tablet Spasm, # [Levsin] 30 tab, 1 Refill(s), Pharmacy: [facility], 170.18, cm, 05/01/21 10:14:00 ROLLER HAND, Height, 79.545, kg, 05/01/21 10:14:00 ROLLER HAND, Weight Hyoscyamine 2020-06 Yes 0.125 mg = Memoria Sulfate 1-10 1 tab, SL, l 0.125 MG 20:34: Q4H, PRN Hermila nn Sublingual 00 Bladder Tablet Spasm, # [Levsin] 30 tab, 1 Refill(s), Pharmacy: [facility], 170.18, cm, 05/01/21 10:14:00 ROLLER HAND, Height, 79.545, kg, 05/01/21 10:14:00 ROLLER HAND, Weight Phenazopyri 2020-06 No 200 mg = 1 Memoria dine 1-10 tab, PO, l hydrochlori 20:34: TID, PRN He rmann de 200 MG 00 Dysuria, X Oral Tablet 4 day, # [Pyridium] 12 tab, 0 Refill(s), Pharmacy: [facility], 170.18, cm, 05/01/21 10:14:00 ROLLER HAND, Height, 79.545, kg, 05/01/21 10:14:00 ROLLER HAND, Weight Hyoscyamine 2020-06 Yes 0.125 mg = Memoria Sulfate 1-10 1 tab, SL, l 0.125 MG 20:34: Q4H, PRN Hermila nn Sublingual 00 Bladder Tablet Spasm, # [Levsin] 30 tab, 1 Refill(s), Pharmacy: [facility], 170.18, cm, 05/01/21 10:14:00 ROLLER HAND, Height, 79.545, kg, 05/01/21 10:14:00 ROLLER HAND, Weight Phenazopyri 2020-06 No 200 mg = 1 Memoria dine 1-10 tab, PO, l hydrochlori 20:34: TID, PRN He rmann de 200 MG 00 Dysuria, X Oral Tablet 4 day, # [Pyridium] 12 tab, 0 Refill(s), Pharmacy: [facility], 170.18, cm, 05/01/21 10:14:00 ROLLER HAND, Height, 79.545, kg, 05/01/21 10:14:00 ROLLER HAND, Weight Hyoscyamine 2020-06 Yes 0.125 mg = Memoria Sulfate 1-10 1 tab, SL, l 0.125 MG 20:34: Q4H, PRN Hermila nn Sublingual 00 Bladder Tablet Spasm, # [Levsin] 30 tab, 1 Refill(s), Pharmacy: [facility], 170.18, cm, 05/01/21 10:14:00 ROLLER HAND, Height, 79.545, kg, 05/01/21 10:14:00 ROLLER HAND, Weight Phenazopyri 2020-06 No 200 mg = 1 Memoria dine 1-10 tab, PO, l hydrochlori 20:34: TID, PRN He rmann de 200 MG 00 Dysuria, X Oral Tablet 4 day, # [Pyridium] 12 tab, 0 Refill(s), Pharmacy: [facility], 170.18, cm, 05/01/21 10:14:00 ROLLER HAND, Height, 79.545, kg, 05/01/21 10:14:00 ROLLER HAND, Weight Hyoscyamine 2020-06 Yes 0.125 mg = Memoria Sulfate 1-10 1 tab, SL, l 0.125 MG 20:34: Q4H, PRN Hermila nn Sublingual 00 Bladder Tablet Spasm, # [Levsin] 30 tab, 1 Refill(s), Pharmacy: [facility], 170.18, cm, 05/01/21 10:14:00 ROLLER HAND, Height, 79.545, kg, 05/01/21 10:14:00 ROLLER HAND, Weight Phenazopyri 2020-06 No 200 mg = 1 Memoria dine 1-10 tab, PO, l hydrochlori 20:34: TID, PRN He rmann de 200 MG 00 Dysuria, X Oral Tablet 4 day, # [Pyridium] 12 tab, 0 Refill(s), Pharmacy: [facility], 170.18, cm, 05/01/21 10:14:00 ROLLER HAND, Height, 79.545, kg, 05/01/21 10:14:00 ROLLER HAND, Weight Hyoscyamine 2020-06 Yes 0.125 mg = Memoria Sulfate 1-10 1 tab, SL, l 0.125 MG 20:34: Q4H, PRN Hermila nn Sublingual 00 Bladder Tablet Spasm, # [Levsin] 30 tab, 1 Refill(s), Pharmacy: [facility], 170.18, cm, 05/01/21 10:14:00 ROLLER HAND, Height, 79.545, kg, 05/01/21 10:14:00 ROLLER HAND, Weight Phenazopyri 2020-06 No 200 mg = 1 Memoria dine 1-10 tab, PO, l hydrochlori 20:34: TID, PRN He rmann de 200 MG 00 Dysuria, X Oral Tablet 4 day, # [Pyridium] 12 tab, 0 Refill(s), Pharmacy: [facility], 170.18, cm, 05/01/21 10:14:00 ROLLER HAND, Height, 79.545, kg, 05/01/21 10:14:00 ROLLER HAND, Weight Hyoscyamine 2020-06 Yes 0.125 mg = Memoria Sulfate 1-10 1 tab, SL, l 0.125 MG 20:34: Q4H, PRN Hermila nn Sublingual 00 Bladder Tablet Spasm, # [Levsin] 30 tab, 1 Refill(s), Pharmacy: [facility], 170.18, cm, 05/01/21 10:14:00 ROLLER HAND, Height, 79.545, kg, 05/01/21 10:14:00 ROLLER HAND, Weight Phenazopyri 2020-06 No 200 mg = 1 Memoria dine 1-10 tab, PO, l hydrochlori 20:34: TID, PRN He rmann de 200 MG 00 Dysuria, X Oral Tablet 4 day, # [Pyridium] 12 tab, 0 Refill(s), Pharmacy: [facility], 170.18, cm, 05/01/21 10:14:00 ROLLER HAND, Height, 79.545, kg, 05/01/21 10:14:00 ROLLER HAND, Weight Hyoscyamine 2020-06 Yes 0.125 mg = Memoria Sulfate 1-10 1 tab, SL, l 0.125 MG 20:34: Q4H, PRN Hermila nn Sublingual 00 Bladder Tablet Spasm, # [Levsin] 30 tab, 1 Refill(s), Pharmacy: [facility], 170.18, cm, 05/01/21 10:14:00 ROLLER HAND, Height, 79.545, kg, 05/01/21 10:14:00 ROLLER HAND, Weight Phenazopyri 2020-06 No 200 mg = 1 Memoria dine 1-10 tab, PO, l hydrochlori 20:34: TID, PRN He rmann de 200 MG 00 Dysuria, X Oral Tablet 4 day, # [Pyridium] 12 tab, 0 Refill(s), Pharmacy: [facility], 170.18, cm, 05/01/21 10:14:00 ROLLER HAND, Height, 79.545, kg, 05/01/21 10:14:00 ROLLER HAND, Weight Hyoscyamine 2020-06 Yes 0.125 mg = Memoria Sulfate 1-10 1 tab, SL, l 0.125 MG 20:34: Q4H, PRN Hermila nn Sublingual 00 Bladder Tablet Spasm, # [Levsin] 30 tab, 1 Refill(s), Pharmacy: [facility], 170.18, cm, 05/01/21 10:14:00 ROLLER HAND, Height, 79.545, kg, 05/01/21 10:14:00 ROLLER HAND, Weight Phenazopyri 2020-06 No 200 mg = 1 Memoria dine 1-10 tab, PO, l hydrochlori 20:34: TID, PRN He rmann de 200 MG 00 Dysuria, X Oral Tablet 4 day, # [Pyridium] 12 tab, 0 Refill(s), Pharmacy: [facility], 170.18, cm, 05/01/21 10:14:00 ROLLER HAND, Height, 79.545, kg, 05/01/21 10:14:00 ROLLER HAND, Weight Hyoscyamine 2020-06 Yes 0.125 mg = Memoria Sulfate 1-10 1 tab, SL, l 0.125 MG 20:34: Q4H, PRN Hermila nn Sublingual 00 Bladder Tablet Spasm, # [Levsin] 30 tab, 1 Refill(s), Pharmacy: [facility], 170.18, cm, 05/01/21 10:14:00 ROLLER HAND, Height, 79.545, kg, 05/01/21 10:14:00 ROLLER HAND, Weight Phenazopyri 2020-06 No 200 mg = 1 Memoria dine 1-10 tab, PO, l hydrochlori 20:34: TID, PRN He rmann de 200 MG 00 Dysuria, X Oral Tablet 4 day, # [Pyridium] 12 tab, 0 Refill(s), Pharmacy: [facility], 170.18, cm, 05/01/21 10:14:00 ROLLER HAND, Height, 79.545, kg, 05/01/21 10:14:00 ROLLER HAND, Weight Hyoscyamine 2020-06 Yes 0.125 mg = Memoria Sulfate 1-10 1 tab, SL, l 0.125 MG 20:34: Q4H, PRN Hermila nn Sublingual 00 Bladder Tablet Spasm, # [Levsin] 30 tab, 1 Refill(s), Pharmacy: [facility], 170.18, cm, 05/01/21 10:14:00 ROLLER HAND, Height, 79.545, kg, 05/01/21 10:14:00 ROLLER HAND, Weight Phenazopyri 2020-06 No 200 mg = 1 Memoria dine 1-10 tab, PO, l hydrochlori 20:34: TID, PRN He rmann de 200 MG 00 Dysuria, X Oral Tablet 4 day, # [Pyridium] 12 tab, 0 Refill(s), Pharmacy: [facility], 170.18, cm, 05/01/21 10:14:00 ROLLER HAND, Height, 79.545, kg, 05/01/21 10:14:00 ROLLER HAND, Weight Hyoscyamine 2020-06 Yes 0.125 mg = Memoria Sulfate 1-10 1 tab, SL, l 0.125 MG 20:34: Q4H, PRN Hermila nn Sublingual 00 Bladder Tablet Spasm, # [Levsin] 30 tab, 1 Refill(s), Pharmacy: [facility], 170.18, cm, 05/01/21 10:14:00 ROLLER HAND, Height, 79.545, kg, 05/01/21 10:14:00 ROLLER HAND, Weight Phenazopyri 2020-06 No 200 mg = 1 Memoria dine 1-10 tab, PO, l hydrochlori 20:34: TID, PRN He rmann de 200 MG 00 Dysuria, X Oral Tablet 4 day, # [Pyridium] 12 tab, 0 Refill(s), Pharmacy: [facility], 170.18, cm, 05/01/21 10:14:00 ROLLER HAND, Height, 79.545, kg, 05/01/21 10:14:00 ROLLER HAND, Weight Hyoscyamine 2020-06 Yes 0.125 mg = Memoria Sulfate 1-10 1 tab, SL, l 0.125 MG 20:34: Q4H, PRN Hermila nn Sublingual 00 Bladder Tablet Spasm, # [Levsin] 30 tab, 1 Refill(s), Pharmacy: [facility], 170.18, cm, 05/01/21 10:14:00 ROLLER HAND, Height, 79.545, kg, 05/01/21 10:14:00 ROLLER HAND, Weight Phenazopyri 2020-06 No 200 mg = 1 Memoria dine 1-10 tab, PO, l hydrochlori 20:34: TID, PRN He rmann de 200 MG 00 Dysuria, X Oral Tablet 4 day, # [Pyridium] 12 tab, 0 Refill(s), Pharmacy: [facility], 170.18, cm, 05/01/21 10:14:00 ROLLER HAND, Height, 79.545, kg, 05/01/21 10:14:00 ROLLER HAND, Weight Hyoscyamine 2020-06 Yes 0.125 mg = Memoria Sulfate 1-10 1 tab, SL, l 0.125 MG 20:34: Q4H, PRN Hermila nn Sublingual 00 Bladder Tablet Spasm, # [Levsin] 30 tab, 1 Refill(s), Pharmacy: [facility], 170.18, cm, 05/01/21 10:14:00 ROLLER HAND, Height, 79.545, kg, 05/01/21 10:14:00 ROLLER HAND, Weight Phenazopyri 2020-06 No 200 mg = 1 Memoria dine 1-10 tab, PO, l hydrochlori 20:34: TID, PRN He rmann de 200 MG 00 Dysuria, X Oral Tablet 4 day, # [Pyridium] 12 tab, 0 Refill(s), Pharmacy: [facility], 170.18, cm, 05/01/21 10:14:00 ROLLER HAND, Height, 79.545, kg, 05/01/21 10:14:00 ROLLER HAND, Weight Hyoscyamine 2020-06 Yes 0.125 mg = Memoria Sulfate 1-10 1 tab, SL, l 0.125 MG 20:34: Q4H, PRN Hermila nn Sublingual 00 Bladder Tablet Spasm, # [Levsin] 30 tab, 1 Refill(s), Pharmacy: [facility], 170.18, cm, 05/01/21 10:14:00 ROLLER HAND, Height, 79.545, kg, 05/01/21 10:14:00 ROLLER HAND, Weight Phenazopyri 2020-06 No 200 mg = 1 Memoria dine 1-10 tab, PO, l hydrochlori 20:34: TID, PRN He rmann de 200 MG 00 Dysuria, X Oral Tablet 4 day, # [Pyridium] 12 tab, 0 Refill(s), Pharmacy: [facility], 170.18, cm, 05/01/21 10:14:00 ROLLER HAND, Height, 79.545, kg, 05/01/21 10:14:00 ROLLER HAND, Weight Hyoscyamine 2020-06 Yes 0.125 mg = Memoria Sulfate 1-10 1 tab, SL, l 0.125 MG 20:34: Q4H, PRN Hermila nn Sublingual 00 Bladder Tablet Spasm, # [Levsin] 30 tab, 1 Refill(s), Pharmacy: [facility], 170.18, cm, 05/01/21 10:14:00 ROLLER HAND, Height, 79.545, kg, 05/01/21 10:14:00 ROLLER HAND, Weight Phenazopyri 2020-06 No 200 mg = 1 Memoria dine 1-10 tab, PO, l hydrochlori 20:34: TID, PRN He rmann de 200 MG 00 Dysuria, X Oral Tablet 4 day, # [Pyridium] 12 tab, 0 Refill(s), Pharmacy: [facility], 170.18, cm, 05/01/21 10:14:00 ROLLER HAND, Height, 79.545, kg, 05/01/21 10:14:00 ROLLER HAND, Weight Hyoscyamine 2020-06 Yes 0.125 mg = Memoria Sulfate 1-10 1 tab, SL, l 0.125 MG 20:34: Q4H, PRN Hermila nn Sublingual 00 Bladder Tablet Spasm, # [Levsin] 30 tab, 1 Refill(s), Pharmacy: [facility], 170.18, cm, 05/01/21 10:14:00 ROLLER HAND, Height, 79.545, kg, 05/01/21 10:14:00 ROLLER HAND, Weight Phenazopyri 2020-06 No 200 mg = 1 Memoria dine 1-10 tab, PO, l hydrochlori 20:34: TID, PRN He rmann de 200 MG 00 Dysuria, X Oral Tablet 4 day, # [Pyridium] 12 tab, 0 Refill(s), Pharmacy: [facility], 170.18, cm, 05/01/21 10:14:00 ROLLER HAND, Height, 79.545, kg, 05/01/21 10:14:00 ROLLER HAND, Weight Hyoscyamine 2020-06 Yes 0.125 mg = Memoria Sulfate 1-10 1 tab, SL, l 0.125 MG 20:34: Q4H, PRN Hermila nn Sublingual 00 Bladder Tablet Spasm, # [Levsin] 30 tab, 1 Refill(s), Pharmacy: [facility], 170.18, cm, 05/01/21 10:14:00 ROLLER HAND, Height, 79.545, kg, 05/01/21 10:14:00 ROLLER HAND, Weight Phenazopyri 2020-06 No 200 mg = 1 Memoria dine 1-10 tab, PO, l hydrochlori 20:34: TID, PRN He rmann de 200 MG 00 Dysuria, X Oral Tablet 4 day, # [Pyridium] 12 tab, 0 Refill(s), Pharmacy: [facility], 170.18, cm, 05/01/21 10:14:00 ROLLER HAND, Height, 79.545, kg, 05/01/21 10:14:00 ROLLER HAND, Weight Hyoscyamine 2020-06 Yes 0.125 mg = Memoria Sulfate 1-10 1 tab, SL, l 0.125 MG 20:34: Q4H, PRN Hermila nn Sublingual 00 Bladder Tablet Spasm, # [Levsin] 30 tab, 1 Refill(s), Pharmacy: [facility], 170.18, cm, 05/01/21 10:14:00 ROLLER HAND, Height, 79.545, kg, 05/01/21 10:14:00 ROLLER HAND, Weight Phenazopyri 2020-06 No 200 mg = 1 Memoria dine 1-10 tab, PO, l hydrochlori 20:34: TID, PRN He rmann de 200 MG 00 Dysuria, X Oral Tablet 4 day, # [Pyridium] 12 tab, 0 Refill(s), Pharmacy: [facility], 170.18, cm, 05/01/21 10:14:00 ROLLER HAND, Height, 79.545, kg, 05/01/21 10:14:00 ROLLER HAND, Weight Hyoscyamine 2020-06 Yes 0.125 mg = Memoria Sulfate 1-10 1 tab, SL, l 0.125 MG 20:34: Q4H, PRN Hermila nn Sublingual 00 Bladder Tablet Spasm, # [Levsin] 30 tab, 1 Refill(s), Pharmacy: [facility], 170.18, cm, 05/01/21 10:14:00 ROLLER HAND, Height, 79.545, kg, 05/01/21 10:14:00 ROLLER HAND, Weight Phenazopyri 2020-06 No 200 mg = 1 Memoria dine 1-10 tab, PO, l hydrochlori 20:34: TID, PRN He rmann de 200 MG 00 Dysuria, X Oral Tablet 4 day, # [Pyridium] 12 tab, 0 Refill(s), Pharmacy: [facility], 170.18, cm, 05/01/21 10:14:00 ROLLER HAND, Height, 79.545, kg, 05/01/21 10:14:00 ROLLER HAND, Weight Hyoscyamine 2020-06 Yes 0.125 mg = Memoria Sulfate 1-10 1 tab, SL, l 0.125 MG 20:34: Q4H, PRN Hermila nn Sublingual 00 Bladder Tablet Spasm, # [Levsin] 30 tab, 1 Refill(s), Pharmacy: [facility], 170.18, cm, 05/01/21 10:14:00 ROLLER HAND, Height, 79.545, kg, 05/01/21 10:14:00 ROLLER HAND, Weight Phenazopyri 2020-06 No 200 mg = 1 Memoria dine 1-10 tab, PO, l hydrochlori 20:34: TID, PRN He rmann de 200 MG 00 Dysuria, X Oral Tablet 4 day, # [Pyridium] 12 tab, 0 Refill(s), Pharmacy: [facility], 170.18, cm, 05/01/21 10:14:00 ROLLER HAND, Height, 79.545, kg, 05/01/21 10:14:00 ROLLER HAND, Weight Hyoscyamine 2020-06 Yes 0.125 mg = Memoria Sulfate 1-10 1 tab, SL, l 0.125 MG 20:34: Q4H, PRN Hermila nn Sublingual 00 Bladder Tablet Spasm, # [Levsin] 30 tab, 1 Refill(s), Pharmacy: [facility], 170.18, cm, 05/01/21 10:14:00 ROLLER HAND, Height, 79.545, kg, 05/01/21 10:14:00 ROLLER HAND, Weight Phenazopyri 2020-06 No 200 mg = 1 Memoria dine 1-10 tab, PO, l hydrochlori 20:34: TID, PRN He rmann de 200 MG 00 Dysuria, X Oral Tablet 4 day, # [Pyridium] 12 tab, 0 Refill(s), Pharmacy: [facility], 170.18, cm, 05/01/21 10:14:00 ROLLER HAND, Height, 79.545, kg, 05/01/21 10:14:00 ROLLER HAND, Weight Hyoscyamine 2020-06 Yes 0.125 mg = Memoria Sulfate 1-10 1 tab, SL, l 0.125 MG 20:34: Q4H, PRN Hermila nn Sublingual 00 Bladder Tablet Spasm, # [Levsin] 30 tab, 1 Refill(s), Pharmacy: [facility], 170.18, cm, 05/01/21 10:14:00 ROLLER HAND, Height, 79.545, kg, 05/01/21 10:14:00 ROLLER HAND, Weight Phenazopyri 2020-06 No 200 mg = 1 Memoria dine 1-10 tab, PO, l hydrochlori 20:34: TID, PRN He rmann de 200 MG 00 Dysuria, X Oral Tablet 4 day, # [Pyridium] 12 tab, 0 Refill(s), Pharmacy: [facility], 170.18, cm, 05/01/21 10:14:00 ROLLER HAND, Height, 79.545, kg, 05/01/21 10:14:00 ROLLER HAND, Weight Hyoscyamine 2020-06 Yes 0.125 mg = Memoria Sulfate 1-10 1 tab, SL, l 0.125 MG 20:34: Q4H, PRN Hermila nn Sublingual 00 Bladder Tablet Spasm, # [Levsin] 30 tab, 1 Refill(s), Pharmacy: [facility], 170.18, cm, 05/01/21 10:14:00 ROLLER HAND, Height, 79.545, kg, 05/01/21 10:14:00 ROLLER HAND, Weight Phenazopyri 2020-06 No 200 mg = 1 Memoria dine 1-10 tab, PO, l hydrochlori 20:34: TID, PRN rmann de 200 MG 00 Dysuria, X Oral Tablet 4 day, # [Pyridium] 12 tab, 0 Refill(s), Pharmacy: [facility], 170.18, cm, 05/01/21 10:14:00 ROLLER HAND, Height, 79.545, kg, 05/01/21 10:14:00 ROLLER HAND, Weight Hyoscyamine 2020-06 Yes 0.125 mg = Memoria Sulfate 1-10 1 tab, SL, l 0.125 MG 20:34: Q4H, PRN Hermila nn Sublingual 00 Bladder Tablet Spasm, # [Levsin] 30 tab, 1 Refill(s), Pharmacy: [facility], 170.18, cm, 05/01/21 10:14:00 ROLLER HAND, Height, 79.545, kg, 05/01/21 10:14:00 ROLLER HAND, Weight Phenazopyri 2020-06 No 200 mg = 1 Memoria dine 1-10 tab, PO, l hydrochlori 20:34: TID, PRN rmann de 200 MG 00 Dysuria, X Oral Tablet 4 day, # [Pyridium] 12 tab, 0 Refill(s), Pharmacy: [facility], 170.18, cm, 05/01/21 10:14:00 ROLLER HAND, Height, 79.545, kg, 05/01/21 10:14:00 ROLLER HAND, Weight Hyoscyamine 2020-06 Yes 0.125 mg = Memoria Sulfate 1-10 1 tab, SL, l 0.125 MG 20:34: Q4H, PRN Hermila nn Sublingual 00 Bladder Tablet Spasm, # [Levsin] 30 tab, 1 Refill(s), Pharmacy: [facility], 170.18, cm, 05/01/21 10:14:00 ROLLER HAND, Height, 79.545, kg, 05/01/21 10:14:00 ROLLER HAND, Weight Phenazopyri 2020-06 No 200 mg = 1 Memoria dine 1-10 tab, PO, l hydrochlori 20:34: TID, PRN He rmann de 200 MG 00 Dysuria, X Oral Tablet 4 day, # [Pyridium] 12 tab, 0 Refill(s), Pharmacy: [facility], 170.18, cm, 05/01/21 10:14:00 ROLLER HAND, Height, 79.545, kg, 05/01/21 10:14:00 ROLLER HAND, Weight Hyoscyamine 2020-06 Yes 0.125 mg = Memoria Sulfate 1-10 1 tab, SL, l 0.125 MG 20:34: Q4H, PRN Hermila nn Sublingual 00 Bladder Tablet Spasm, # [Levsin] 30 tab, 1 Refill(s), Pharmacy: [facility], 170.18, cm, 05/01/21 10:14:00 ROLLER HAND, Height, 79.545, kg, 05/01/21 10:14:00 ROLLER HAND, Weight Phenazopyri 2020-06 No 200 mg = 1 Memoria dine 1-10 tab, PO, l hydrochlori 20:34: TID, PRN rmann de 200 MG 00 Dysuria, X Oral Tablet 4 day, # [Pyridium] 12 tab, 0 Refill(s), Pharmacy: [facility], 170.18, cm, 05/01/21 10:14:00 ROLLER HAND, Height, 79.545, kg, 05/01/21 10:14:00 ROLLER HAND, Weight Hyoscyamine 2020-06 Yes 0.125 mg = Memoria Sulfate 1-10 1 tab, SL, l 0.125 MG 20:34: Q4H, PRN Hermila nn Sublingual 00 Bladder Tablet Spasm, # [Levsin] 30 tab, 1 Refill(s), Pharmacy: [facility], 170.18, cm, 05/01/21 10:14:00 ROLLER HAND, Height, 79.545, kg, 05/01/21 10:14:00 ROLLER HAND, Weight Phenazopyri 2020-06 No 200 mg = 1 Memoria dine 1-10 tab, PO, l hydrochlori 20:34: TID, PRN He rmann de 200 MG 00 Dysuria, X Oral Tablet 4 day, # [Pyridium] 12 tab, 0 Refill(s), Pharmacy: [facility], 170.18, cm, 05/01/21 10:14:00 ROLLER HAND, Height, 79.545, kg, 05/01/21 10:14:00 ROLLER HAND, Weight Hyoscyamine 2020-06 Yes 0.125 mg = Memoria Sulfate 1-10 1 tab, SL, l 0.125 MG 20:34: Q4H, PRN Hermila nn Sublingual 00 Bladder Tablet Spasm, # [Levsin] 30 tab, 1 Refill(s), Pharmacy: [facility], 170.18, cm, 05/01/21 10:14:00 ROLLER HAND, Height, 79.545, kg, 05/01/21 10:14:00 ROLLER HAND, Weight Phenazopyri 2020-06 No 200 mg = 1 Memoria dine 1-10 tab, PO, l hydrochlori 20:34: TID, PRN He rmann de 200 MG 00 Dysuria, X Oral Tablet 4 day, # [Pyridium] 12 tab, 0 Refill(s), Pharmacy: [facility], 170.18, cm, 05/01/21 10:14:00 ROLLER HAND, Height, 79.545, kg, 05/01/21 10:14:00 ROLLER HAND, Weight Hyoscyamine 2020-06 Yes 0.125 mg = Memoria Sulfate 1-10 1 tab, SL, l 0.125 MG 20:34: Q4H, PRN Hermila nn Sublingual 00 Bladder Tablet Spasm, # [Levsin] 30 tab, 1 Refill(s), Pharmacy: [facility], 170.18, cm, 05/01/21 10:14:00 ROLLER HAND, Height, 79.545, kg, 05/01/21 10:14:00 ROLLER HAND, Weight Phenazopyri 2020-06 No 200 mg = 1 Memoria dine 1-10 tab, PO, l hydrochlori 20:34: TID, PRN He rmann de 200 MG 00 Dysuria, X Oral Tablet 4 day, # [Pyridium] 12 tab, 0 Refill(s), Pharmacy: [facility], 170.18, cm, 05/01/21 10:14:00 ROLLER HAND, Height, 79.545, kg, 05/01/21 10:14:00 ROLLER HAND, Weight Hyoscyamine 2020-06 Yes 0.125 mg = Memoria Sulfate 1-10 1 tab, SL, l 0.125 MG 20:34: Q4H, PRN Hermila nn Sublingual 00 Bladder Tablet Spasm, # [Levsin] 30 tab, 1 Refill(s), Pharmacy: [facility], 170.18, cm, 05/01/21 10:14:00 ROLLER HAND, Height, 79.545, kg, 05/01/21 10:14:00 ROLLER HAND, Weight Phenazopyri 2020-06 No 200 mg = 1 Memoria dine 1-10 tab, PO, l hydrochlori 20:34: TID, PRN He rmann de 200 MG 00 Dysuria, X Oral Tablet 4 day, # [Pyridium] 12 tab, 0 Refill(s), Pharmacy: [facility], 170.18, cm, 05/01/21 10:14:00 ROLLER HAND, Height, 79.545, kg, 05/01/21 10:14:00 ROLLER HAND, Weight Hyoscyamine 2020-06 Yes 0.125 mg = Memoria Sulfate 1-10 1 tab, SL, l 0.125 MG 20:34: Q4H, PRN Hermila nn Sublingual 00 Bladder Tablet Spasm, # [Levsin] 30 tab, 1 Refill(s), Pharmacy: [facility], 170.18, cm, 05/01/21 10:14:00 ROLLER HAND, Height, 79.545, kg, 05/01/21 10:14:00 ROLLER HAND, Weight Phenazopyri 2020-06 No 200 mg = 1 Memoria dine 1-10 tab, PO, l hydrochlori 20:34: TID, PRN He rmann de 200 MG 00 Dysuria, X Oral Tablet 4 day, # [Pyridium] 12 tab, 0 Refill(s), Pharmacy: [facility], 170.18, cm, 05/01/21 10:14:00 ROLLER HAND, Height, 79.545, kg, 05/01/21 10:14:00 ROLLER HAND, Weight Hyoscyamine 2020-06 Yes 0.125 mg = Memoria Sulfate 1-10 1 tab, SL, l 0.125 MG 20:34: Q4H, PRN Hermila nn Sublingual 00 Bladder Tablet Spasm, # [Levsin] 30 tab, 1 Refill(s), Pharmacy: [facility], 170.18, cm, 05/01/21 10:14:00 ROLLER HAND, Height, 79.545, kg, 05/01/21 10:14:00 ROLLER HAND, Weight Phenazopyri 2020-06 No 200 mg = 1 Memoria dine 1-10 tab, PO, l hydrochlori 20:34: TID, PRN He rmann de 200 MG 00 Dysuria, X Oral Tablet 4 day, # [Pyridium] 12 tab, 0 Refill(s), Pharmacy: [facility], 170.18, cm, 05/01/21 10:14:00 ROLLER HAND, Height, 79.545, kg, 05/01/21 10:14:00 ROLLER HAND, Weight Hyoscyamine 2020-06 Yes 0.125 mg = Memoria Sulfate 1-10 1 tab, SL, l 0.125 MG 20:34: Q4H, PRN Hermila nn Sublingual 00 Bladder Tablet Spasm, # [Levsin] 30 tab, 1 Refill(s), Pharmacy: [facility], 170.18, cm, 05/01/21 10:14:00 ROLLER HAND, Height, 79.545, kg, 05/01/21 10:14:00 ROLLER HAND, Weight Phenazopyri 2020-06 No 200 mg = 1 Memoria dine 1-10 tab, PO, l hydrochlori 20:34: TID, PRN He rmann de 200 MG 00 Dysuria, X Oral Tablet 4 day, # [Pyridium] 12 tab, 0 Refill(s), Pharmacy: [facility], 170.18, cm, 05/01/21 10:14:00 ROLLER HAND, Height, 79.545, kg, 05/01/21 10:14:00 ROLLER HAND, Weight Hyoscyamine 2020-06 Yes 0.125 mg = Memoria Sulfate 1-10 1 tab, SL, l 0.125 MG 20:34: Q4H, PRN Hermila nn Sublingual 00 Bladder Tablet Spasm, # [Levsin] 30 tab, 1 Refill(s), Pharmacy: [facility], 170.18, cm, 05/01/21 10:14:00 ROLLER HAND, Height, 79.545, kg, 05/01/21 10:14:00 ROLLER HAND, Weight Phenazopyri 2020-06 No 200 mg = 1 Memoria dine 1-10 tab, PO, l hydrochlori 20:34: TID, PRN He rmann de 200 MG 00 Dysuria, X Oral Tablet 4 day, # [Pyridium] 12 tab, 0 Refill(s), Pharmacy: [facility], 170.18, cm, 05/01/21 10:14:00 ROLLER HAND, Height, 79.545, kg, 05/01/21 10:14:00 ROLLER HAND, Weight Hyoscyamine 2020-06 Yes 0.125 mg = Memoria Sulfate 1-10 1 tab, SL, l 0.125 MG 20:34: Q4H, PRN Hermila nn Sublingual 00 Bladder Tablet Spasm, # [Levsin] 30 tab, 1 Refill(s), Pharmacy: [facility], 170.18, cm, 05/01/21 10:14:00 ROLLER HAND, Height, 79.545, kg, 05/01/21 10:14:00 ROLLER HAND, Weight ciprofloxac 2020-06 No Route: IV, Memoria in (ANES) 07-03 Drug form: l 19:44: INJ, ONCE, Stop date: 05/03/21 13:44:00 ROLLER HAND norepinephr 2020-06 No Route: IV, Memoria ine (ANES) 07-03 Drug form: l 19:44: INJ, ONCE, Stop date: 05/03/21 13:44:00 ROLLER HAND ciprofloxac 2020-06 No Route: IV, Memoria in (ANES) 07-03 Drug form: l 19:44: INJ, ONCE, [place] 00 Stop date: 05/03/21 13:44:00 ROLLER HAND norepinephr 2020-06 No Route: IV, Memoria ine (ANES) - Drug form: l 19:44: INJ, ONCE, [place] 00 Stop date: 05/03/21 13:44:00 ROLLER HAND ciprofloxac 2020-06 No Route: IV, Memoria in (ANES) 07-03 Drug form: l 19:44: INJ, ONCE, Stop date: 05/03/21 13:44:00 ROLLER HAND norepinephr 2020-06 No Route: IV, Memoria ine (ANES) 1-10 Drug form: l 19:44: INJ, ONCE, Stop date: 05/03/21 13:44:00 ROLLER HAND ciprofloxac 2020-06 No Route: IV, Memoria in (ANES) 1-10 Drug form: l 19:44: INJ, ONCE, Stop date: 05/03/21 13:44:00 ROLLER HAND norepinephr 2020-06 No Route: IV, Memoria ine (ANES) 1-10 Drug form: l 19:44: INJ, ONCE, Stop date: 05/03/21 13:44:00 ROLLER HAND ciprofloxac 2020-06 No Route: IV, Memoria in (ANES) 1-10 Drug form: l 19:44: INJ, ONCE, Stop date: 05/03/21 13:44:00 ROLLER HAND norepinephr 2020-06 No Route: IV, Memoria ine (ANES) 1-10 Drug form: l 19:44: INJ, ONCE, Stop date: 05/03/21 13:44:00 ROLLER HAND ciprofloxac 2020-06 No Route: IV, Memoria in (ANES) 1-10 Drug form: l 19:44: INJ, ONCE, Stop date: 05/03/21 13:44:00 ROLLER HAND norepinephr 2020-06 No Route: IV, Memoria ine (ANES) 1-10 Drug form: l 19:44: INJ, ONCE, Stop date: 05/03/21 13:44:00 ROLLER HAND ciprofloxac 2020-06 No Route: IV, Memoria in (ANES) 1-10 Drug form: l 19:44: INJ, ONCE, Stop date: 05/03/21 13:44:00 ROLLER HAND norepinephr 2020-06 No Route: IV, Memoria ine (ANES) 1-10 Drug form: l 19:44: INJ, ONCE, Stop date: 05/03/21 13:44:00 ROLLER HAND ciprofloxac 2020-06 No Route: IV, Memoria in (ANES) 1-10 Drug form: l 19:44: INJ, ONCE, Stop date: 05/03/21 13:44:00 ROLLER HAND norepinephr 2020-06 No Route: IV, Memoria ine (ANES) 1-10 Drug form: l 19:44: INJ, ONCE, Stop date: 05/03/21 13:44:00 ROLLER HAND ciprofloxac 2020-06 No Route: IV, Memoria in (ANES) 1-10 Drug form: l 19:44: INJ, ONCE, Stop date: 05/03/21 13:44:00 ROLLER HAND norepinephr 2020-06 No Route: IV, Memoria ine (ANES) 1-10 Drug form: l 19:44: INJ, ONCE, Stop date: 05/03/21 13:44:00 ROLLER HAND ciprofloxac 2020-06 No Route: IV, Memoria in (ANES) 1-10 Drug form: l 19:44: INJ, ONCE, Stop date: 05/03/21 13:44:00 ROLLER HAND norepinephr 2020-06 No Route: IV, Memoria ine (ANES) 1-10 Drug form: l 19:44: INJ, ONCE, Stop date: 05/03/21 13:44:00 ROLLER HAND ciprofloxac 2020-06 No Route: IV, Memoria in (ANES) 1-10 Drug form: l 19:44: INJ, ONCE, Stop date: 05/03/21 13:44:00 ROLLER HAND norepinephr 2020-06 No Route: IV, Memoria ine (ANES) 1-10 Drug form: l 19:44: INJ, ONCE, Stop date: 05/03/21 13:44:00 ROLLER HAND ciprofloxac 2020-06 No Route: IV, Memoria in (ANES) 1-10 Drug form: l 19:44: INJ, ONCE, Stop date: 05/03/21 13:44:00 ROLLER HAND norepinephr 2020-06 No Route: IV, Memoria ine (ANES) 1-10 Drug form: l 19:44: INJ, ONCE, Stop date: 05/03/21 13:44:00 ROLLER HAND ciprofloxac 2020-06 No Route: IV, Memoria in (ANES) 1-10 Drug form: l 19:44: INJ, ONCE, Stop date: 05/03/21 13:44:00 ROLLER HAND norepinephr 2020-06 No Route: IV, Memoria ine (ANES) 1-10 Drug form: l 19:44: INJ, ONCE, Stop date: 05/03/21 13:44:00 ROLLER HAND ciprofloxac 2020-06 No Route: IV, Memoria in (ANES) 1-10 Drug form: l 19:44: INJ, ONCE, Stop date: 05/03/21 13:44:00 ROLLER HAND norepinephr 2020-06 No Route: IV, Memoria ine (ANES) 1-10 Drug form: l 19:44: INJ, ONCE, Stop date: 05/03/21 13:44:00 ROLLER HAND ciprofloxac 2020-06 No Route: IV, Memoria in (ANES) 1-10 Drug form: l 19:44: INJ, ONCE, Stop date: 05/03/21 13:44:00 ROLLER HAND norepinephr 2020-06 No Route: IV, Memoria ine (ANES) 1-10 Drug form: l 19:44: INJ, ONCE, Stop date: 05/03/21 13:44:00 ROLLER HAND ciprofloxac 2020-06 No Route: IV, Memoria in (ANES) 1-10 Drug form: l 19:44: INJ, ONCE, Stop date: 05/03/21 13:44:00 ROLLER HAND norepinephr 2020-06 No Route: IV, Memoria ine (ANES) 1-10 Drug form: l 19:44: INJ, ONCE, Stop date: 05/03/21 13:44:00 ROLLER HAND ciprofloxac 2020-06 No Route: IV, Memoria in (ANES) 1-10 Drug form: l 19:44: INJ, ONCE, Stop date: 05/03/21 13:44:00 ROLLER HAND norepinephr 2020-06 No Route: IV, Memoria ine (ANES) 1-10 Drug form: l 19:44: INJ, ONCE, Stop date: 05/03/21 13:44:00 ROLLER HAND ciprofloxac 2020-06 No Route: IV, Memoria in (ANES) 1-10 Drug form: l 19:44: INJ, ONCE, Stop date: 05/03/21 13:44:00 ROLLER HAND norepinephr 2020-06 No Route: IV, Memoria ine (ANES) 1-10 Drug form: l 19:44: INJ, ONCE, Stop date: 05/03/21 13:44:00 ROLLER HAND ciprofloxac 2020-06 No Route: IV, Memoria in (ANES) 1-10 Drug form: l 19:44: INJ, ONCE, Stop date: 05/03/21 13:44:00 ROLLER HAND norepinephr 2020-06 No Route: IV, Memoria ine (ANES) 1-10 Drug form: l 19:44: INJ, ONCE, Stop date: 05/03/21 13:44:00 ROLLER HAND ciprofloxac 2020-06 No Route: IV, Memoria in (ANES) 1-10 Drug form: l 19:44: INJ, ONCE, Stop date: 05/03/21 13:44:00 ROLLER HAND norepinephr 2020-06 No Route: IV, Memoria ine (ANES) 1-10 Drug form: l 19:44: INJ, ONCE, Stop date: 05/03/21 13:44:00 ROLLER HAND ciprofloxac 2020-06 No Route: IV, Memoria in (ANES) 1-10 Drug form: l 19:44: INJ, ONCE, Stop date: 05/03/21 13:44:00 ROLLER HAND norepinephr 2020-06 No Route: IV, Memoria ine (ANES) 1-10 Drug form: l 19:44: INJ, ONCE, Stop date: 05/03/21 13:44:00 ROLLER HAND ciprofloxac 2020-06 No Route: IV, Memoria in (ANES) 1-10 Drug form: l 19:44: INJ, ONCE, Stop date: 05/03/21 13:44:00 ROLLER HAND norepinephr 2020-06 No Route: IV, Memoria ine (ANES) 1-10 Drug form: l 19:44: INJ, ONCE, Stop date: 05/03/21 13:44:00 ROLLER HAND ciprofloxac 2020-06 No Route: IV, Memoria in (ANES) 1-10 Drug form: l 19:44: INJ, ONCE, Stop date: 05/03/21 13:44:00 ROLLER HAND norepinephr 2020-06 No Route: IV, Memoria ine (ANES) 1-10 Drug form: l 19:44: INJ, ONCE, Stop date: 05/03/21 13:44:00 ROLLER HAND ciprofloxac 2020-06 No Route: IV, Memoria in (ANES) 1-10 Drug form: l 19:44: INJ, ONCE, Stop date: 05/03/21 13:44:00 ROLLER HAND norepinephr 2020-06 No Route: IV, Memoria ine (ANES) 1-10 Drug form: l 19:44: INJ, ONCE, Stop date: 05/03/21 13:44:00 ROLLER HAND ciprofloxac 2020-06 No Route: IV, Memoria in (ANES) 1-10 Drug form: l 19:44: INJ, ONCE, Stop date: 05/03/21 13:44:00 ROLLER HAND norepinephr 2020-06 No Route: IV, Memoria ine (ANES) 1-10 Drug form: l 19:44: INJ, ONCE, Stop date: 05/03/21 13:44:00 ROLLER HAND ciprofloxac 2020-06 No Route: IV, Memoria in (ANES) 1-10 Drug form: l 19:44: INJ, ONCE, Stop date: 05/03/21 13:44:00 ROLLER HAND norepinephr 2020-06 No Route: IV, Memoria ine (ANES) 1-10 Drug form: l 19:44: INJ, ONCE, Stop date: 05/03/21 13:44:00 ROLLER HAND ciprofloxac 2020-06 No Route: IV, Memoria in (ANES) 1-10 Drug form: l 19:44: INJ, ONCE, Stop date: 05/03/21 13:44:00 ROLLER HAND norepinephr 2020-06 No Route: IV, Memoria ine (ANES) 1-10 Drug form: l 19:44: INJ, ONCE, Stop date: 05/03/21 13:44:00 ROLLER HAND ciprofloxac 2020-06 No Route: IV, Memoria in (ANES) 1-10 Drug form: l 19:44: INJ, ONCE, Stop date: 05/03/21 13:44:00 ROLLER HAND norepinephr 2020-06 No Route: IV, Memoria ine (ANES) 1-10 Drug form: l 19:44: INJ, ONCE, Stop date: 05/03/21 13:44:00 ROLLER HAND ciprofloxac 2020-06 No Route: IV, Memoria in (ANES) 1-10 Drug form: l 19:44: INJ, ONCE, Stop date: 05/03/21 13:44:00 ROLLER HAND norepinephr 2020-06 No Route: IV, Memoria ine (ANES) 1-10 Drug form: l 19:44: INJ, ONCE, Stop date: 05/03/21 13:44:00 ROLLER HAND ciprofloxac 2020-06 No Route: IV, Memoria in (ANES) 1-10 Drug form: l 19:44: INJ, ONCE, Stop date: 05/03/21 13:44:00 ROLLER HAND norepinephr 2020-06 No Route: IV, Memoria ine (ANES) 1-10 Drug form: l 19:44: INJ, ONCE, Stop date: 05/03/21 13:44:00 ROLLER HAND ciprofloxac 2020-06 No Route: IV, Memoria in (ANES) 1-10 Drug form: l 19:44: INJ, ONCE, Stop date: 05/03/21 13:44:00 ROLLER HAND norepinephr 2020-06 No Route: IV, Memoria ine (ANES) 1-10 Drug form: l 19:44: INJ, ONCE, Stop date: 05/03/21 13:44:00 ROLLER HAND ciprofloxac 2020-06 No Route: IV, Memoria in (ANES) 1-10 Drug form: l 19:44: INJ, ONCE, Stop date: 05/03/21 13:44:00 ROLLER HAND norepinephr 2020-06 No Route: IV, Memoria ine (ANES) 1-10 Drug form: l 19:44: INJ, ONCE, Stop date: 05/03/21 13:44:00 [facility] ciprofloxac 2020-06 No Route: IV, Memoria in (ANES) 1-10 Drug form: l 19:44: INJ, ONCE, Stop date: 05/03/21 13:44:00 [facility] norepinephr 2020-06 No Route: IV, Memoria ine (ANES) 1-10 Drug form: l 19:44: INJ, ONCE, Stop date: 05/03/21 13:44:00 [facility] ciprofloxac 2020-06 No Route: IV, Memoria in (ANES) 1-10 Drug form: l 19:44: INJ, ONCE, Stop date: 05/03/21 13:44:00 [facility] norepinephr 2020-06 No Route: IV, Memoria ine (ANES) 1-10 Drug form: l 19:44: INJ, ONCE, Stop date: 05/03/21 13:44:00 [facility] ciprofloxac 2020-06 No Route: IV, Memoria in (ANES) 1-10 Drug form: l 19:44: INJ, ONCE, Stop date: 05/03/21 13:44:00 [facility] norepinephr 2020-06 No Route: IV, Memoria ine (ANES) 1-10 Drug form: l 19:44: INJ, ONCE, Stop date: 05/03/21 13:44:00 [facility] ciprofloxac 2020-06 No Route: IV, Memoria in (ANES) 1-10 Drug form: l 19:44: INJ, ONCE, Stop date: 05/03/21 13:44:00 [facility] norepinephr 2020-06 No Route: IV, Memoria ine (ANES) 1-10 Drug form: l 19:44: INJ, ONCE, Stop date: 05/03/21 13:44:00 [facility] ciprofloxac 2020-06 No Route: IV, Memoria in (ANES) 1-10 Drug form: l 19:44: INJ, ONCE, Stop date: 05/03/21 13:44:00 [facility] norepinephr 2020-06 No Route: IV, Memoria ine (ANES) 1-10 Drug form: l 19:44: INJ, ONCE, Stop date: 05/03/21 13:44:00 [facility] ciprofloxac 2020-06 No Route: IV, Memoria in (ANES) 1-10 Drug form: l 19:44: INJ, ONCE, Stop date: 05/03/21 13:44:00 [facility] norepinephr 2020-06 No Route: IV, Memoria ine (ANES) 1-10 Drug form: l 19:44: INJ, ONCE, Stop date: 05/03/21 13:44:00 [facility] ciprofloxac 2020-06 No Route: IV, Memoria in (ANES) 1-10 Drug form: l 19:44: INJ, ONCE, Stop date: 05/03/21 13:44:00 [facility] norepinephr 2020-06 No Route: IV, Memoria ine (ANES) 1-10 Drug form: l 19:44: INJ, ONCE, Stop date: 05/03/21 13:44:00 [facility] ciprofloxac 2020-06 No Route: IV, Memoria in (ANES) 1-10 Drug form: l 19:44: INJ, ONCE, Stop date: 05/03/21 13:44:00 [facility] norepinephr 2020-06 No Route: IV, Memoria ine (ANES) 1-10 Drug form: l 19:44: INJ, ONCE, Stop date: 05/03/21 13:44:00 [facility] dexamethaso 2020-06 No Route: IV, Memoria ne (ANES) 1-10 Drug form: l 19:34: INJ, ONCE, Stop date: 05/03/21 13:34:00 [facility] ondansetron 2020-06 No Route: IV, Memoria (ANES) 1-10 Drug form: l 19:34: INJ, ONCE, Stop date: 05/03/21 13:34:00 [facility] dexamethaso 2020-06 No Route: IV, Memoria ne (ANES) 1-10 Drug form: l 19:34: INJ, ONCE, Stop date: 05/03/21 13:34:00 [facility] ondansetron 2020-06 No Route: IV, Memoria (ANES) 1-10 Drug form: l 19:34: INJ, ONCE, Stop date: 05/03/21 13:34:00 [facility] dexamethaso 2020-06 No Route: IV, Memoria ne (ANES) 1-10 Drug form: l 19:34: INJ, ONCE, Stop date: 05/03/21 13:34:00 [facility] ondansetron 2020-06 No Route: IV, Memoria (ANES) 1-10 Drug form: l 19:34: INJ, ONCE, Stop date: 05/03/21 13:34:00 [facility] dexamethaso 2020-06 No Route: IV, Memoria ne (ANES) 1-10 Drug form: l 19:34: INJ, ONCE, Stop date: 05/03/21 13:34:00 [facility] ondansetron 2020-06 No Route: IV, Memoria (ANES) 1-10 Drug form: l 19:34: INJ, ONCE, Stop date: 05/03/21 13:34:00 [facility] dexamethaso 2020-06 No Route: IV, Memoria ne (ANES) 1-10 Drug form: l 19:34: INJ, ONCE, Stop date: 05/03/21 13:34:00 [facility] ondansetron 2020-06 No Route: IV, Memoria (ANES) 1-10 Drug form: l 19:34: INJ, ONCE, Stop date: 05/03/21 13:34:00 [facility] dexamethaso 2020-06 No Route: IV, Memoria ne (ANES) 1-10 Drug form: l 19:34: INJ, ONCE, Stop date: 05/03/21 13:34:00 [facility] ondansetron 2020-06 No Route: IV, Memoria (ANES) 1-10 Drug form: l 19:34: INJ, ONCE, Stop date: 05/03/21 13:34:00 [facility] dexamethaso 2020-06 No Route: IV, Memoria ne (ANES) 1-10 Drug form: l 19:34: INJ, ONCE, Stop date: 05/03/21 13:34:00 [facility] ondansetron 2020-06 No Route: IV, Memoria (ANES) 1-10 Drug form: l 19:34: INJ, ONCE, Stop date: 05/03/21 13:34:00 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 dexamethaso 2020-06 No Route: IV, Memoria ne (ANES) 1-10 Drug form: l 19:34: INJ, ONCE, Stop date: 05/03/21 13:34:00 ROLLER HAND ondansetron 2020-06 No Route: IV, Memoria (ANES) 1-10 Drug form: l 19:34: INJ, ONCE, Stop date: 05/03/21 13:34:00 ROLLER HAND dexamethaso 2020-06 No Route: IV, Memoria ne (ANES) 1-10 Drug form: l 19:34: INJ, ONCE, Stop date: 05/03/21 13:34:00 ROLLER HAND ondansetron 2020-06 No Route: IV, Memoria (ANES) 1-10 Drug form: l 19:34: INJ, ONCE, Stop date: 05/03/21 13:34:00 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 HAND dexamethaso 2020-06 No Route: IV, Memoria ne (ANES) 1-10 Drug form: l 19:34: INJ, ONCE, Stop date: 05/03/21 13:34:00 ROLLER HAND ondansetron 2020-06 No Route: IV, Memoria (ANES) 1-10 Drug form: l 19:34: INJ, ONCE, Stop date: 05/03/21 13:34:00 ROLLER HAND dexamethaso 2020-06 No Route: IV, Memoria ne (ANES) 1-10 Drug form: l 19:34: INJ, ONCE, Stop date: 05/03/21 13:34:00 ROLLER HAND ondansetron 2020-06 No Route: IV, Memoria (ANES) 1-10 Drug form: l 19:34: INJ, ONCE, Stop date: 05/03/21 13:34:00 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 HAND dexamethaso 2020-06 No Route: IV, Memoria ne (ANES) 1-10 Drug form: l 19:34: INJ, ONCE, Stop date: 05/03/21 13:34:00 ROLLER HAND ondansetron 2020-06 No Route: IV, Memoria (ANES) 1-10 Drug form: l 19:34: INJ, ONCE, Stop date: 05/03/21 13:34:00 ROLLER HAND dexamethaso 2020-06 No Route: IV, Memoria ne (ANES) 1-10 Drug form: l 19:34: INJ, ONCE, Stop date: 05/03/21 13:34:00 ROLLER HAND ondansetron 2020-06 No Route: IV, Memoria (ANES) 1-10 Drug form: l 19:34: INJ, ONCE, Stop date: 05/03/21 13:34:00 ROLLER HAND dexamethaso 2020-06 No Route: IV, Memoria ne (ANES) 1-10 Drug form: l 19:34: INJ, ONCE, Stop date: 05/03/21 13:34:00 ROLLER HAND ondansetron 2020-06 No Route: IV, Memoria (ANES) 1-10 Drug form: l 19:34: INJ, ONCE, Stop date: 05/03/21 13:34:00 ROLLER HAND dexamethaso 2020-06 No Route: IV, Memoria ne (ANES) 1-10 Drug form: l 19:34: INJ, ONCE, Stop date: 05/03/21 13:34:00 ROLLER HAND ondansetron 2020-06 No Route: IV, Memoria (ANES) 1-10 Drug form: l 19:34: INJ, ONCE, Stop date: 05/03/21 13:34:00 ROLLER HAND dexamethaso 2020-06 No Route: IV, Memoria ne (ANES) 1-10 Drug form: l 19:34: INJ, ONCE, Stop date: 05/03/21 13:34:00 ROLLER HAND ondansetron 2020-06 No Route: IV, Memoria (ANES) 1-10 Drug form: l 19:34: INJ, ONCE, Stop date: 05/03/21 13:34:00 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 dexamethaso 2020-06 No Route: IV, Memoria ne (ANES) 1-10 Drug form: l 19:34: INJ, ONCE, Stop date: 05/03/21 13:34:00 ROLLER HAND ondansetron 2020-06 No Route: IV, Memoria (ANES) 1-10 Drug form: l 19:34: INJ, ONCE, Stop date: 05/03/21 13:34:00 ROLLER HAND dexamethaso 2020-06 No Route: IV, Memoria ne (ANES) 1-10 Drug form: l 19:34: INJ, ONCE, Stop date: 05/03/21 13:34:00 ROLLER HAND ondansetron 2020-06 No Route: IV, Memoria (ANES) 1-10 Drug form: l 19:34: INJ, ONCE, Stop date: 05/03/21 13:34:00 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 dexamethaso 2020-06 No Route: IV, Memoria ne (ANES) 1-10 Drug form: l 19:34: INJ, ONCE, Stop date: 05/03/21 13:34:00 ROLLER HAND ondansetron 2020-06 No Route: IV, Memoria (ANES) 1-10 Drug form: l 19:34: INJ, ONCE, Stop date: 05/03/21 13:34:00 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 HAND dexamethaso 2020-06 No Route: IV, Memoria ne (ANES) 1-10 Drug form: l 19:34: INJ, ONCE, Stop date: 05/03/21 13:34:00 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 HAND ondansetron 2020-06 No Route: IV, Memoria (ANES) 1-10 Drug form: l 19:34: INJ, ONCE, Stop date: 05/03/21 13:34:00 ROLLER HAND dexamethaso 2020-06 No Route: IV, Memoria ne (ANES) 1-10 Drug form: l 19:34: INJ, ONCE, Stop date: 05/03/21 13:34:00 ROLLER HAND ondansetron 2020-06 No Route: IV, Memoria (ANES) 1-10 Drug form: l 19:34: INJ, ONCE, Stop date: 05/03/21 13:34:00 ROLLER HAND dexamethaso 2020-06 No Route: IV, Memoria ne (ANES) 1-10 Drug form: l 19:34: INJ, ONCE, Stop date: 05/03/21 13:34:00 ROLLER HAND ondansetron 2020-06 No Route: IV, Memoria (ANES) 1-10 Drug form: l 19:34: INJ, ONCE, Stop date: 05/03/21 13:34:00 ROLLER HAND dexamethaso 2020-06 No Route: IV, Memoria ne (ANES) 1-10 Drug form: l 19:34: INJ, ONCE, Stop date: 05/03/21 13:34:00 ROLLER HAND ondansetron 2020-06 No Route: IV, Memoria (ANES) 1-10 Drug form: l 19:34: INJ, ONCE, Stop date: 05/03/21 13:34:00 ROLLER HAND dexamethaso 2020-06 No Route: IV, Memoria ne (ANES) 1-10 Drug form: l 19:34: INJ, ONCE, Stop date: 05/03/21 13:34:00 ROLLER HAND ondansetron 2020-06 No Route: IV, Memoria (ANES) 1-10 Drug form: l 19:34: INJ, ONCE, Stop date: 05/03/21 13:34:00 ROLLER HAND dexamethaso 2020-06 No Route: IV, Memoria ne (ANES) 1-10 Drug form: l 19:34: INJ, ONCE, Stop date: 05/03/21 13:34:00 ROLLER HAND ondansetron 2020-06 No Route: IV, Memoria (ANES) 1-10 Drug form: l 19:34: INJ, ONCE, Stop date: 05/03/21 13:34:00 ROLLER HAND dexamethaso 2020-06 No Route: IV, Memoria ne (ANES) 1-10 Drug form: l 19:34: INJ, ONCE, Stop date: 05/03/21 13:34:00 ROLLER HAND ondansetron 2020-06 No Route: IV, Memoria (ANES) 1-10 Drug form: l 19:34: INJ, ONCE, Stop date: 05/03/21 13:34:00 ROLLER HAND dexamethaso 2020-06 No Route: IV, Memoria ne (ANES) 1-10 Drug form: l 19:34: INJ, ONCE, Stop date: 05/03/21 13:34:00 ROLLER HAND ondansetron 2020-06 No Route: IV, Memoria (ANES) 1-10 Drug form: l 19:34: INJ, ONCE, Stop date: 05/03/21 13:34:00 ROLLER HAND dexamethaso 2020-06 No Route: IV, Memoria ne (ANES) 1-10 Drug form: l 19:34: INJ, ONCE, Stop date: 05/03/21 13:34:00 ROLLER HAND ondansetron 2020-06 No Route: IV, Memoria (ANES) 1-10 Drug form: l 19:34: INJ, ONCE, Stop date: 05/03/21 13:34:00 ROLLER HAND dexamethaso 2020-06 No Route: IV, Memoria ne (ANES) 1-10 Drug form: l 19:34: INJ, ONCE, Stop date: 05/03/21 13:34:00 ROLLER HAND ondansetron 2020-06 No Route: IV, Memoria (ANES) 1-10 Drug form: l 19:34: INJ, ONCE, Stop date: 05/03/21 13:34:00 ROLLER HAND dexamethaso 2020-06 No Route: IV, Memoria ne (ANES) 1-10 Drug form: l 19:34: INJ, ONCE, Stop date: 05/03/21 13:34:00 ROLLER HAND ondansetron 2020-06 No Route: IV, Memoria (ANES) 1-10 Drug form: l 19:34: INJ, ONCE, Stop date: 05/03/21 13:34:00 ROLLER HAND dexamethaso 2020-06 No Route: IV, Memoria ne (ANES) 1-10 Drug form: l 19:34: INJ, ONCE, Stop date: 05/03/21 13:34:00 ROLLER HAND ondansetron 2020-06 No Route: IV, Memoria (ANES) 1-10 Drug form: l 19:34: INJ, ONCE, Stop date: 05/03/21 13:34:00 ROLLER HAND dexamethaso 2020-06 No Route: IV, Memoria ne (ANES) 1-10 Drug form: l 19:34: INJ, ONCE, Stop date: 05/03/21 13:34:00 ROLLER HAND ondansetron 2020-06 No Route: IV, Memoria (ANES) 1-10 Drug form: l 19:34: INJ, ONCE, Stop date: 05/03/21 13:34:00 ROLLER HAND dexamethaso 2020-06 No Route: IV, Memoria ne (ANES) 1-10 Drug form: l 19:34: INJ, ONCE, Stop date: 05/03/21 13:34:00 ROLLER HAND ondansetron 2020-06 No Route: IV, Memoria (ANES) 1-10 Drug form: l 19:34: INJ, ONCE, Stop date: 05/03/21 13:34:00 ROLLER HAND dexamethaso 2020-06 No Route: IV, Memoria ne (ANES) 1-10 Drug form: l 19:34: INJ, ONCE, Stop date: 05/03/21 13:34:00 ROLLER HAND ondansetron 2020-06 No Route: IV, Memoria (ANES) 1-10 Drug form: l 19:34: INJ, ONCE, Stop date: 05/03/21 13:34:00 ROLLER HAND dexamethaso 2020-06 No Route: IV, Memoria ne (ANES) 1-10 Drug form: l 19:34: INJ, ONCE, Stop date: 05/03/21 13:34:00 ROLLER HAND ondansetron 2020-06 No Route: IV, Memoria (ANES) 1-10 Drug form: l 19:34: INJ, ONCE, Stop date: 05/03/21 13:34:00 ROLLER HAND dexamethaso 2020-06 No Route: IV, Memoria ne (ANES) 1-10 Drug form: l 19:34: INJ, ONCE, Stop date: 05/03/21 13:34:00 ROLLER HAND ondansetron 2020-06 No Route: IV, Memoria (ANES) 1-10 Drug form: l 19:34: INJ, ONCE, Stop date: 05/03/21 13:34:00 ROLLER HAND dexamethaso 2020-06 No Route: IV, Memoria ne (ANES) 1-10 Drug form: l 19:34: INJ, ONCE, Stop date: 05/03/21 13:34:00 ROLLER HAND ondansetron 2020-06 No Route: IV, Memoria (ANES) 1-10 Drug form: l 19:34: INJ, ONCE, Stop date: 05/03/21 13:34:00 ROLLER HAND dexamethaso 2020-06 No Route: IV, Memoria ne (ANES) 1-10 Drug form: l 19:34: INJ, ONCE, Stop date: 05/03/21 13:34:00 ROLLER HAND ondansetron 2020-06 No Route: IV, Memoria (ANES) 1-10 Drug form: l 19:34: INJ, ONCE, Stop date: 05/03/21 13:34:00 ROLLER HAND dexamethaso 2020-06 No Route: IV, Memoria ne (ANES) 1-10 Drug form: l 19:34: INJ, ONCE, Stop date: 05/03/21 13:34:00 ROLLER HAND ondansetron 2020-06 No Route: IV, Memoria (ANES) 1-10 Drug form: l 19:34: INJ, ONCE, Stop date: 05/03/21 13:34:00 ROLLER HAND dexamethaso 2020-06 No Route: IV, Memoria ne (ANES) 1-10 Drug form: l 19:34: INJ, ONCE, Stop date: 05/03/21 13:34:00 ROLLER HAND ondansetron 2020-06 No Route: IV, Memoria (ANES) 1-10 Drug form: l 19:34: INJ, ONCE, [place] 00 Stop date: 05/03/21 13:34:00 ROLLER HAND midazolam 2020-06 No Route: IV, Me moria (ANES) 1-10 Drug form: l 19:33: SOLN, Ran 00 ONCE, Stop date: 05/03/21 13:33:00 ROLLER HAND fentaNYL 2020-06 No Route: IV, Mem oria (ANES) 1-10 Drug form: l 19:33: INJ, ONCE, Stop date: 05/03/21 13:33:00 ROLLER HAND propofol 2020-06 No Route: IV, Mem oria (ANES) 1-10 Drug form: l 19:33: INJ, ONCE, Stop date: 05/03/21 13:33:00 ROLLER HAND lidocaine 2020-06 No Route: IV, Me moria (ANES) 1-10 Drug form: l 19:33: INJ, ONCE, Stop date: 05/03/21 13:33:00 ROLLER HAND glycopyrrol 2020-06 No Route: IV, Memoria ate (ANES) 1-10 Drug form: l 19:33: INJ, ONCE, Stop date: 05/03/21 13:33:00 ROLLER HAND ePHEDrine 2020-06 No Route: IV, Me moria (ANES) 1-10 Drug form: l 19:33: INJ, ONCE, Stop date: 05/03/21 13:33:00 ROLLER HAND midazolam 2020-06 No Route: IV, Me moria (ANES) 1-10 Drug form: l 19:33: SOLN, [place] ONCE, Stop date: 05/03/21 13:33:00 ROLLER HAND fentaNYL 2020-06 No Route: IV, Mem oria (ANES) 1-10 Drug form: l 19:33: INJ, ONCE, Stop date: 05/03/21 13:33:00 ROLLER HAND propofol 2020-06 No Route: IV, Mem oria (ANES) 1-10 Drug form: l 19:33: INJ, ONCE, Stop date: 05/03/21 13:33:00 ROLLER HAND lidocaine 2020-06 No Route: IV, Me moria (ANES) 1-10 Drug form: l 19:33: INJ, ONCE, Stop date: 05/03/21 13:33:00 ROLLER HAND glycopyrrol 2020-06 No Route: IV, Memoria ate (ANES) 1-10 Drug form: l 19:33: INJ, ONCE, Stop date: 05/03/21 13:33:00 ROLLER HAND ePHEDrine 2020-06 No Route: IV, Me moria (ANES) 1-10 Drug form: l 19:33: INJ, ONCE, Stop date: 05/03/21 13:33:00 ROLLER HAND midazolam 2020-06 No Route: IV, Me moria (ANES) 1-10 Drug form: l 19:33: SOLN, [place] ONCE, Stop date: 05/03/21 13:33:00 ROLLER HAND fentaNYL 2020-06 No Route: IV, Mem oria (ANES) 1-10 Drug form: l 19:33: INJ, ONCE, Stop date: 05/03/21 13:33:00 ROLLER HAND propofol 2020-06 No Route: IV, Mem oria (ANES) 1-10 Drug form: l 19:33: INJ, ONCE, Stop date: 05/03/21 13:33:00 ROLLER HAND lidocaine 2020-06 No Route: IV, Me moria (ANES) 1-10 Drug form: l 19:33: INJ, ONCE, Stop date: 05/03/21 13:33:00 ROLLER HAND glycopyrrol 2020-06 No Route: IV, Memoria ate (ANES) 1-10 Drug form: l 19:33: INJ, ONCE, Stop date: 05/03/21 13:33:00 ROLLER HAND ePHEDrine 2020-06 No Route: IV, Me moria (ANES) 1-10 Drug form: l 19:33: INJ, ONCE, Stop date: 05/03/21 13:33:00 ROLLER HAND midazolam 2020-06 No Route: IV, Me moria (ANES) 1-10 Drug form: l 19:33: SOLN, [place] 00 ONCE, Stop date: 05/03/21 13:33:00 ROLLER HAND fentaNYL 2020-06 No Route: IV, Mem oria (ANES) 1-10 Drug form: l 19:33: INJ, ONCE, Stop date: 05/03/21 13:33:00 ROLLER HAND propofol 2020-06 No Route: IV, Mem oria (ANES) 1-10 Drug form: l 19:33: INJ, ONCE, [place] 00 Stop date: 05/03/21 13:33:00 ROLLER HAND lidocaine 2020-06 No Route: IV, Me moria (ANES) 1-10 Drug form: l 19:33: INJ, ONCE, Stop date: 05/03/21 13:33:00 ROLLER HAND glycopyrrol 2020-06 No Route: IV, Memoria ate (ANES) 1-10 Drug form: l 19:33: INJ, ONCE, Stop date: 05/03/21 13:33:00 ROLLER HAND ePHEDrine 2020-06 No Route: IV, Me moria (ANES) 1-10 Drug form: l 19:33: INJ, ONCE, Stop date: 05/03/21 13:33:00 ROLLER HAND midazolam 2020-06 No Route: IV, Me moria (ANES) 1-10 Drug form: l 19:33: SOLN, [place] 00 ONCE, Stop date: 05/03/21 13:33:00 ROLLER HAND fentaNYL 2020-06 No Route: IV, Mem oria (ANES) 1-10 Drug form: l 19:33: INJ, ONCE, Stop date: 05/03/21 13:33:00 ROLLER HAND propofol 2020-06 No Route: IV, Mem oria (ANES) 1-10 Drug form: l 19:33: INJ, ONCE, Stop date: 05/03/21 13:33:00 ROLLER HAND lidocaine 2020-06 No Route: IV, Me moria (ANES) 1-10 Drug form: l 19:33: INJ, ONCE, Stop date: 05/03/21 13:33:00 ROLLER HAND glycopyrrol 2020-06 No Route: IV, Memoria ate (ANES) 1-10 Drug form: l 19:33: INJ, ONCE, [place] 00 Stop date: 05/03/21 13:33:00 ROLLER HAND ePHEDrine 2020-06 No Route: IV, Me moria (ANES) 1-10 Drug form: l 19:33: INJ, ONCE, [place] 00 Stop date: 05/03/21 13:33:00 ROLLER HAND midazolam 2020-06 No Route: IV, Me moria (ANES) 1-10 Drug form: l 19:33: SOLN, [place] 00 ONCE, Stop date: 05/03/21 13:33:00 ROLLER HAND fentaNYL 2020-06 No Route: IV, Mem oria (ANES) 1-10 Drug form: l 19:33: INJ, ONCE, [place] 00 Stop date: 05/03/21 13:33:00 ROLLER HAND propofol 2020-06 No Route: IV, Mem oria (ANES) 1-10 Drug form: l 19:33: INJ, ONCE, Stop date: 05/03/21 13:33:00 ROLLER HAND lidocaine 2020-06 No Route: IV, Me moria (ANES) 1-10 Drug form: l 19:33: INJ, ONCE, Stop date: 05/03/21 13:33:00 ROLLER HAND glycopyrrol 2020-06 No Route: IV, Memoria ate (ANES) 1-10 Drug form: l 19:33: INJ, ONCE, Stop date: 05/03/21 13:33:00 ROLLER HAND ePHEDrine 2020-06 No Route: IV, Me moria (ANES) 1-10 Drug form: l 19:33: INJ, ONCE, Stop date: 05/03/21 13:33:00 ROLLER HAND midazolam 2020-06 No Route: IV, Me moria (ANES) 1-10 Drug form: l 19:33: SOLN, [place] ONCE, Stop date: 05/03/21 13:33:00 ROLLER HAND fentaNYL 2020-06 No Route: IV, Mem oria (ANES) 1-10 Drug form: l 19:33: INJ, ONCE, Stop date: 05/03/21 13:33:00 ROLLER HAND propofol 2020-06 No Route: IV, Mem oria (ANES) 1-10 Drug form: l 19:33: INJ, ONCE, Stop date: 05/03/21 13:33:00 ROLLER HAND lidocaine 2020-06 No Route: IV, Me moria (ANES) 1-10 Drug form: l 19:33: INJ, ONCE, Stop date: 05/03/21 13:33:00 ROLLER HAND glycopyrrol 2020-06 No Route: IV, Memoria ate (ANES) 1-10 Drug form: l 19:33: INJ, ONCE, [place] 00 Stop date: 05/03/21 13:33:00 ROLLER HAND ePHEDrine 2020-06 No Route: IV, Me moria (ANES) 1-10 Drug form: l 19:33: INJ, ONCE, [place] 00 Stop date: 05/03/21 13:33:00 ROLLER HAND midazolam 2020-06 No Route: IV, Me moria (ANES) 1-10 Drug form: l 19:33: SOLN, [place] ONCE, Stop date: 05/03/21 13:33:00 ROLLER HAND fentaNYL 2020-06 No Route: IV, Mem oria (ANES) 1-10 Drug form: l 19:33: INJ, ONCE, [place] 00 Stop date: 05/03/21 13:33:00 ROLLER HAND propofol 2020-06 No Route: IV, Mem oria (ANES) 1-10 Drug form: l 19:33: INJ, ONCE, [place] 00 Stop date: 05/03/21 13:33:00 ROLLER HAND lidocaine 2020-06 No Route: IV, Me moria (ANES) 1-10 Drug form: l 19:33: INJ, ONCE, [place] 00 Stop date: 05/03/21 13:33:00 ROLLER HAND glycopyrrol 2020-06 No Route: IV, Memoria ate (ANES) 1-10 Drug form: l 19:33: INJ, ONCE, [place] 00 Stop date: 05/03/21 13:33:00 ROLLER HAND ePHEDrine 2020-06 No Route: IV, Me moria (ANES) 1-10 Drug form: l 19:33: INJ, ONCE, [place] 00 Stop date: 05/03/21 13:33:00 ROLLER HAND midazolam 2020-06 No Route: IV, Me moria (ANES) 1-10 Drug form: l 19:33: SOLN, [place] 00 ONCE, Stop date: 05/03/21 13:33:00 ROLLER HAND fentaNYL 2020-06 No Route: IV, Mem oria (ANES) 1-10 Drug form: l 19:33: INJ, ONCE, [place] 00 Stop date: 05/03/21 13:33:00 ROLLER HAND propofol 2020-06 No Route: IV, Mem oria (ANES) 1-10 Drug form: l 19:33: INJ, ONCE, [place] 00 Stop date: 05/03/21 13:33:00 ROLLER HAND lidocaine 2020-06 No Route: IV, Me moria (ANES) 1-10 Drug form: l 19:33: INJ, ONCE, Stop date: 05/03/21 13:33:00 ROLLER HAND glycopyrrol 2020-06 No Route: IV, Memoria ate (ANES) 1-10 Drug form: l 19:33: INJ, ONCE, Stop date: 05/03/21 13:33:00 ROLLER HAND ePHEDrine 2020-06 No Route: IV, Me moria (ANES) 1-10 Drug form: l 19:33: INJ, ONCE, Stop date: 05/03/21 13:33:00 ROLLER HAND midazolam 2020-06 No Route: IV, Me moria (ANES) 1-10 Drug form: l 19:33: SOLN, [place] 00 ONCE, Stop date: 05/03/21 13:33:00 ROLLER HAND fentaNYL 2020-06 No Route: IV, Mem oria (ANES) 1-10 Drug form: l 19:33: INJ, ONCE, Stop date: 05/03/21 13:33:00 ROLLER HAND propofol 2020-06 No Route: IV, Mem oria (ANES) 1-10 Drug form: l 19:33: INJ, ONCE, Stop date: 05/03/21 13:33:00 ROLLER HAND lidocaine 2020-06 No Route: IV, Me moria (ANES) 1-10 Drug form: l 19:33: INJ, ONCE, [place] 00 Stop date: 05/03/21 13:33:00 ROLLER HAND glycopyrrol 2020-06 No Route: IV, Memoria ate (ANES) 1-10 Drug form: l 19:33: INJ, ONCE, [place] 00 Stop date: 05/03/21 13:33:00 ROLLER HAND ePHEDrine 2020-06 No Route: IV, Me moria (ANES) 1-10 Drug form: l 19:33: INJ, ONCE, Stop date: 05/03/21 13:33:00 ROLLER HAND midazolam 2020-06 No Route: IV, Me moria (ANES) 1-10 Drug form: l 19:33: SOLN, [place] 00 ONCE, Stop date: 05/03/21 13:33:00 ROLLER HAND fentaNYL 2020-06 No Route: IV, Mem oria (ANES) 1-10 Drug form: l 19:33: INJ, ONCE, Stop date: 05/03/21 13:33:00 ROLLER HAND propofol 2020-06 No Route: IV, Mem oria (ANES) 1-10 Drug form: l 19:33: INJ, ONCE, Stop date: 05/03/21 13:33:00 ROLLER HAND lidocaine 2020-06 No Route: IV, Me moria (ANES) 1-10 Drug form: l 19:33: INJ, ONCE, Stop date: 05/03/21 13:33:00 ROLLER HAND glycopyrrol 2020-06 No Route: IV, Memoria ate (ANES) 1-10 Drug form: l 19:33: INJ, ONCE, Stop date: 05/03/21 13:33:00 ROLLER HAND ePHEDrine 2020-06 No Route: IV, Me moria (ANES) 1-10 Drug form: l 19:33: INJ, ONCE, Stop date: 05/03/21 13:33:00 ROLLER HAND midazolam 2020-06 No Route: IV, Me moria (ANES) 1-10 Drug form: l 19:33: SOLN, [place] ONCE, Stop date: 05/03/21 13:33:00 ROLLER HAND fentaNYL 2020-06 No Route: IV, Mem oria (ANES) 1-10 Drug form: l 19:33: INJ, ONCE, Stop date: 05/03/21 13:33:00 ROLLER HAND propofol 2020-06 No Route: IV, Mem oria (ANES) 1-10 Drug form: l 19:33: INJ, ONCE, Stop date: 05/03/21 13:33:00 ROLLER HAND lidocaine 2020-06 No Route: IV, Me moria (ANES) 1-10 Drug form: l 19:33: INJ, ONCE, Stop date: 05/03/21 13:33:00 ROLLER HAND glycopyrrol 2020-06 No Route: IV, Memoria ate (ANES) 1-10 Drug form: l 19:33: INJ, ONCE, [place] 00 Stop date: 05/03/21 13:33:00 ROLLER HAND ePHEDrine 2020-06 No Route: IV, Me moria (ANES) 1-10 Drug form: l 19:33: INJ, ONCE, [place] 00 Stop date: 05/03/21 13:33:00 ROLLER HAND midazolam 2020-06 No Route: IV, Me moria (ANES) 1-10 Drug form: l 19:33: SOLN, [place] ONCE, Stop date: 05/03/21 13:33:00 ROLLER HAND fentaNYL 2020-06 No Route: IV, Mem oria (ANES) 1-10 Drug form: l 19:33: INJ, ONCE, [place] 00 Stop date: 05/03/21 13:33:00 ROLLER HAND propofol 2020-06 No Route: IV, Mem oria (ANES) 1-10 Drug form: l 19:33: INJ, ONCE, [place] 00 Stop date: 05/03/21 13:33:00 ROLLER HAND lidocaine 2020-06 No Route: IV, Me mor[place] (ANES) 1-10 Drug form: l 19:33: INJ, ONCE, [place] 00 Stop date: 05/03/21 13:33:00 ROLLER HAND glycopyrrol 2020-06 No Route: IV, Memoria ate (ANES) 1-10 Drug form: l 19:33: INJ, ONCE, [place] 00 Stop date: 05/03/21 13:33:00 ROLLER HAND ePHEDrine 2020-06 No Route: IV, Me moria (ANES) 1-10 Drug form: l 19:33: INJ, ONCE, [place] 00 Stop date: 05/03/21 13:33:00 ROLLER HAND midazolam 2020-06 No Route: IV, Me moria (ANES) 1-10 Drug form: l 19:33: SOLN, [place] 00 ONCE, Stop date: 05/03/21 13:33:00 ROLLER HAND fentaNYL 2020-06 No Route: IV, Mem oria (ANES) 1-10 Drug form: l 19:33: INJ, ONCE, [place] 00 Stop date: 05/03/21 13:33:00 ROLLER HAND propofol 2020-06 No Route: IV, Mem oria (ANES) 1-10 Drug form: l 19:33: INJ, ONCE, Stop date: 05/03/21 13:33:00 ROLLER HAND lidocaine 2020-06 No Route: IV, [place] (ANES) 1-10 Drug form: l 19:33: INJ, ONCE, Stop date: 05/03/21 13:33:00 ROLLER HAND glycopyrrol 2020-06 No Route: IV, Memoria ate (ANES) 1-10 Drug form: l 19:33: INJ, ONCE, Stop date: 05/03/21 13:33:00 ROLLER HAND ePHEDrine 2020-06 No Route: IV, [place] (ANES) 1-10 Drug form: l 19:33: INJ, ONCE, Stop date: 05/03/21 13:33:00 ROLLER HAND midazolam 2020-06 No Route: IV, [place] (ANES) 1-10 Drug form: l 19:33: SOLN, ONCE, Stop date: 05/03/21 13:33:00 [employer] fentaNYL 2020-06 No Route: IV, Mem oria (ANES) 1-10 Drug form: l 19:33: INJ, ONCE, Stop date: 05/03/21 13:33:00 [employer] propofol 2020-06 No Route: IV, Mem oria (ANES) 1-10 Drug form: l 19:33: INJ, ONCE, Stop date: 05/03/21 13:33:00 [employer] lidocaine 2020-06 No Route: IV, Me moria (ANES) 1-10 Drug form: l 19:33: INJ, ONCE, Stop date: 05/03/21 13:33:00 [employer] glycopyrrol 2020-06 No Route: IV, Memoria ate (ANES) 1-10 Drug form: l 19:33: INJ, ONCE, Stop date: 05/03/21 13:33:00 [employer] ePHEDrine 2020-06 No Route: IV, Me moria (ANES) 1-10 Drug form: l 19:33: INJ, ONCE, Stop date: 05/03/21 13:33:00 [employer] midazolam 2020-06 No Route: IV, Me moria (ANES) 1-10 Drug form: l 19:33: SOLN, [place] 00 ONCE, Stop date: 05/03/21 13:33:00 RO[employer] fentaNYL 2020-06 No Route: IV, Mem oria (ANES) 1-10 Drug form: l 19:33: INJ, ONCE, Stop date: 05/03/21 13:33:00 [employer] propofol 2020-06 No Route: IV, Mem oria (ANES) 1-10 Drug form: l 19:33: INJ, ONCE, Stop date: 05/03/21 13:33:00 [employer] lidocaine 2020-06 No Route: IV, Me moria (ANES) 1-10 Drug form: l 19:33: INJ, ONCE, Stop date: 05/03/21 13:33:00 [employer] glycopyrrol 2020-06 No Route: IV, Memoria ate (ANES) 1-10 Drug form: l 19:33: INJ, ONCE, Stop date: 05/03/21 13:33:00 [employer] ePHEDrine 2020-06 No Route: IV, Me moria (ANES) 1-10 Drug form: l 19:33: INJ, ONCE, Stop date: 05/03/21 13:33:00 [employer] midazolam 2020-06 No Route: IV, Me moria (ANES) 1-10 Drug form: l 19:33: SOLN, [place] ONCE, Stop date: 05/03/21 13:33:00 [employer] fentaNYL 2020-06 No Route: IV, Mem oria (ANES) 1-10 Drug form: l 19:33: INJ, ONCE, Stop date: 05/03/21 13:33:00 [employer] propofol 2020-06 No Route: IV, Mem oria (ANES) 1-10 Drug form: l 19:33: INJ, ONCE, Stop date: 05/03/21 13:33:00 [employer] lidocaine 2020-06 No Route: IV, Me moria (ANES) 1-10 Drug form: l 19:33: INJ, ONCE, Stop date: 05/03/21 13:33:00 [employer] glycopyrrol 2020-06 No Route: IV, Memoria ate (ANES) 1-10 Drug form: l 19:33: INJ, ONCE, [place] 00 Stop date: 05/03/21 13:33:00 [employer] ePHEDrine 2020-06 No Route: IV, Me moria (ANES) 1-10 Drug form: l 19:33: INJ, ONCE, [place] Stop date: 05/03/21 13:33:00 [employer] midazolam 2020-06 No Route: IV, Me moria (ANES) 1-10 Drug form: l 19:33: SOLN, [place] ONCE, Stop date: 05/03/21 13:33:00 [employer] fentaNYL 2020-06 No Route: IV, Mem oria (ANES) 1-10 Drug form: l 19:33: INJ, ONCE, [place] 00 Stop date: 05/03/21 13:33:00 [employer] propofol 2020-06 No Route: IV, Mem oria (ANES) 1-10 Drug form: l 19:33: INJ, ONCE, [place] 00 Stop date: 05/03/21 13:33:00 [employer] lidocaine 2020-06 No Route: IV, Me moria (ANES) 1-10 Drug form: l 19:33: INJ, ONCE, [place] 00 Stop date: 05/03/21 13:33:00 [employer] glycopyrrol 2020-06 No Route: IV, Memoria ate (ANES) 1-10 Drug form: l 19:33: INJ, ONCE, [place] 00 Stop date: 05/03/21 13:33:00 [employer] ePHEDrine 2020-06 No Route: IV, Me moria (ANES) 1-10 Drug form: l 19:33: INJ, ONCE, [place] 00 Stop date: 05/03/21 13:33:00 [employer] midazolam 2020-06 No Route: IV, Me moria (ANES) 1-10 Drug form: l 19:33: SOLN, [place] 00 ONCE, Stop date: 05/03/21 13:33:00 [employer] fentaNYL 2020-06 No Route: IV, Mem oria (ANES) 1-10 Drug form: l 19:33: INJ, ONCE, [place] 00 Stop date: 05/03/21 13:33:00 [employer] propofol 2020-06 No Route: IV, Mem oria (ANES) 1-10 Drug form: l 19:33: INJ, ONCE, [place] 00 Stop date: 05/03/21 13:33:00 [employer] lidocaine 2020-06 No Route: IV, Me moria (ANES) 1-10 Drug form: l 19:33: INJ, ONCE, [place] 00 Stop date: 05/03/21 13:33:00 [employer] glycopyrrol 2020-06 No Route: IV, Memoria ate (ANES) 1-10 Drug form: l 19:33: INJ, ONCE, [place] 00 Stop date: 05/03/21 13:33:00 [employer] ePHEDrine 2020-06 No Route: IV, Me moria (ANES) 1-10 Drug form: l 19:33: INJ, ONCE, [place] 00 Stop date: 05/03/21 13:33:00 [employer] midazolam 2020-06 No Route: IV, Me moria (ANES) 1-10 Drug form: l 19:33: SOLN, [place] 00 ONCE, Stop date: 05/03/21 13:33:00 RO[employer] fentaNYL 2020-06 No Route: IV, Mem oria (ANES) 1-10 Drug form: l 19:33: INJ, ONCE, Stop date: 05/03/21 13:33:00 [employer] propofol 2020-06 No Route: IV, Mem oria (ANES) 1-10 Drug form: l 19:33: INJ, ONCE, Stop date: 05/03/21 13:33:00 [employer] lidocaine 2020-06 No Route: IV, Me moria (ANES) 1-10 Drug form: l 19:33: INJ, ONCE, [place] 00 Stop date: 05/03/21 13:33:00 [employer] glycopyrrol 2020-06 No Route: IV, Memoria ate (ANES) 1-10 Drug form: l 19:33: INJ, ONCE, [place] 00 Stop date: 05/03/21 13:33:00 RO[employer] HAND ePHEDrine 2020-06 No Route: IV, Me moria (ANES) 1-10 Drug form: l 19:33: INJ, ONCE, [place] 00 Stop date: 05/03/21 13:33:00 ROLLER HAND midazolam 2020-06 No Route: IV, Me moria (ANES) 1-10 Drug form: l 19:33: SOLN, [place] 00 ONCE, Stop date: 05/03/21 13:33:00 ROLLER HAND fentaNYL 2020-06 No Route: IV, Mem oria (ANES) 1-10 Drug form: l 19:33: INJ, ONCE, [place] 00 Stop date: 05/03/21 13:33:00 ROLLER HAND propofol 2020-06 No Route: IV, Mem oria (ANES) 1-10 Drug form: l 19:33: INJ, ONCE, [place] 00 Stop date: 05/03/21 13:33:00 ROLLER HAND lidocaine 2020-06 No Route: IV, Me moria (ANES) 1-10 Drug form: l 19:33: INJ, ONCE, Stop date: 05/03/21 13:33:00 ROLLER HAND midazolam 2020-06 No Route: IV, Me moria (ANES) 1-10 Drug form: l 19:33: SOLN, [place] 00 ONCE, Stop date: 05/03/21 13:33:00 ROLLER HAND fentaNYL 2020-06 No Route: IV, Mem oria (ANES) 1-10 Drug form: l 19:33: INJ, ONCE, Stop date: 05/03/21 13:33:00 ROLLER HAND propofol 2020-06 No Route: IV, Mem oria (ANES) 1-10 Drug form: l 19:33: INJ, ONCE, [place] 00 Stop date: 05/03/21 13:33:00 ROLLER HAND glycopyrrol 2020-06 No Route: IV, Memoria ate (ANES) 1-10 Drug form: l 19:33: INJ, ONCE, [place] 00 Stop date: 05/03/21 13:33:00 ROLLER HAND lidocaine 2020-06 No Route: IV, Me moria (ANES) 1-10 Drug form: l 19:33: INJ, ONCE, [place] 00 Stop date: 05/03/21 13:33:00 ROLLER HAND glycopyrrol 2020-06 No Route: IV, Memoria ate (ANES) 1-10 Drug form: l 19:33: INJ, ONCE, [place] 00 Stop date: 05/03/21 13:33:00 ROLLER HAND ePHEDrine 2020-06 No Route: IV, Me moria (ANES) 1-10 Drug form: l 19:33: INJ, ONCE, [place] 00 Stop date: 05/03/21 13:33:00 ROLLER HAND ePHEDrine 2020-06 No Route: IV, Me moria (ANES) 1-10 Drug form: l 19:33: INJ, ONCE, Ran Stop date: 05/03/21 13:33:00 ROLLER HAND midazolam 2020-06 No Route: IV, Me moria (ANES) 1-10 Drug form: l 19:33: SOLN, [place] ONCE, Stop date: 05/03/21 13:33:00 ROLLER HAND fentaNYL 2020-06 No Route: IV, Mem oria (ANES) 1-10 Drug form: l 19:33: INJ, ONCE, [place] 00 Stop date: 05/03/21 13:33:00 ROLLER HAND propofol 2020-06 No Route: IV, Mem oria (ANES) 1-10 Drug form: l 19:33: INJ, ONCE, Stop date: 05/03/21 13:33:00 ROLLER HAND lidocaine 2020-06 No Route: IV, Me moria (ANES) 1-10 Drug form: l 19:33: INJ, ONCE, Stop date: 05/03/21 13:33:00 ROLLER HAND glycopyrrol 2020-06 No Route: IV, Memoria ate (ANES) 1-10 Drug form: l 19:33: INJ, ONCE, [place] 00 Stop date: 05/03/21 13:33:00 ROLLER HAND ePHEDrine 2020-06 No Route: IV, Me moria (ANES) 1-10 Drug form: l 19:33: INJ, ONCE, [place] 00 Stop date: 05/03/21 13:33:00 ROLLER HAND midazolam 2020-06 No Route: IV, Me moria (ANES) 1-10 Drug form: l 19:33: SOLN, [place] 00 ONCE, Stop date: 05/03/21 13:33:00 ROLLER HAND fentaNYL 2020-06 No Route: IV, Mem oria (ANES) 1-10 Drug form: l 19:33: INJ, ONCE, [place] 00 Stop date: 05/03/21 13:33:00 ROLLER HAND propofol 2020-06 No Route: IV, Mem oria (ANES) 1-10 Drug form: l 19:33: INJ, ONCE, [place] 00 Stop date: 05/03/21 13:33:00 ROLLER HAND lidocaine 2020-06 No Route: IV, Me moria (ANES) 1-10 Drug form: l 19:33: INJ, ONCE, [place] 00 Stop date: 05/03/21 13:33:00 ROLLER HAND glycopyrrol 2020-06 No Route: IV, Memoria ate (ANES) 1-10 Drug form: l 19:33: INJ, ONCE, Stop date: 05/03/21 13:33:00 ROLLER HAND ePHEDrine 2020-06 No Route: IV, Me moria (ANES) 1-10 Drug form: l 19:33: INJ, ONCE, Stop date: 05/03/21 13:33:00 ROLLER HAND midazolam 2020-06 No Route: IV, Me moria (ANES) 1-10 Drug form: l 19:33: SOLN, ONCE, Stop date: 05/03/21 13:33:00 ROLLER HAND fentaNYL 2020-06 No Route: IV, Mem oria (ANES) 1-10 Drug form: l 19:33: INJ, ONCE, Stop date: 05/03/21 13:33:00 ROLLER HAND propofol 2020-06 No Route: IV, Mem oria (ANES) 1-10 Drug form: l 19:33: INJ, ONCE, Stop date: 05/03/21 13:33:00 ROLLER HAND lidocaine 2020-06 No Route: IV, Me moria (ANES) 1-10 Drug form: l 19:33: INJ, ONCE, Stop date: 05/03/21 13:33:00 ROLLER HAND glycopyrrol 2020-06 No Route: IV, Memoria ate (ANES) 1-10 Drug form: l 19:33: INJ, ONCE, Stop date: 05/03/21 13:33:00 ROLLER HAND ePHEDrine 2020-06 No Route: IV, Me moria (ANES) 1-10 Drug form: l 19:33: INJ, ONCE, Stop date: 05/03/21 13:33:00 ROLLER HAND midazolam 2020-06 No Route: IV, Me moria (ANES) 1-10 Drug form: l 19:33: SOLN, [place] 00 ONCE, Stop date: 05/03/21 13:33:00 ROLLER HAND fentaNYL 2020-06 No Route: IV, Mem oria (ANES) 1-10 Drug form: l 19:33: INJ, ONCE, [place] 00 Stop date: 05/03/21 13:33:00 ROLLER HAND propofol 2020-06 No Route: IV, Mem oria (ANES) 1-10 Drug form: l 19:33: INJ, ONCE, [place] 00 Stop date: 05/03/21 13:33:00 ROLLER HAND lidocaine 2020-06 No Route: IV, Me moria (ANES) 1-10 Drug form: l 19:33: INJ, ONCE, [place] 00 Stop date: 05/03/21 13:33:00 ROLLER HAND glycopyrrol 2020-06 No Route: IV, Memoria ate (ANES) 1-10 Drug form: l 19:33: INJ, ONCE, [place] 00 Stop date: 05/03/21 13:33:00 ROLLER HAND ePHEDrine 2020-06 No Route: IV, Me moria (ANES) 1-10 Drug form: l 19:33: INJ, ONCE, [place] 00 Stop date: 05/03/21 13:33:00 ROLLER HAND midazolam 2020-06 No Route: IV, Me moria (ANES) 1-10 Drug form: l 19:33: SOLN, [place] ONCE, Stop date: 05/03/21 13:33:00 ROLLER HAND fentaNYL 2020-06 No Route: IV, Mem oria (ANES) 1-10 Drug form: l 19:33: INJ, ONCE, [place] 00 Stop date: 05/03/21 13:33:00 ROLLER HAND propofol 2020-06 No Route: IV, Mem oria (ANES) 1-10 Drug form: l 19:33: INJ, ONCE, [place] 00 Stop date: 05/03/21 13:33:00 ROLLER HAND lidocaine 2020-06 No Route: IV, Me moria (ANES) 1-10 Drug form: l 19:33: INJ, ONCE, [place] 00 Stop date: 05/03/21 13:33:00 ROLLER HAND glycopyrrol 2020-06 No Route: IV, Memoria ate (ANES) 1-10 Drug form: l 19:33: INJ, ONCE, Ran Stop date: 05/03/21 13:33:00 ROLLER HAND ePHEDrine 2020-06 No Route: IV, Me moria (ANES) 1-10 Drug form: l 19:33: INJ, ONCE, [place] Stop date: 05/03/21 13:33:00 ROLLER HAND midazolam 2020-06 No Route: IV, Me moria (ANES) 1-10 Drug form: l 19:33: SOLN, [place] 00 ONCE, Stop date: 05/03/21 13:33:00 ROLLER HAND fentaNYL 2020-06 No Route: IV, Mem oria (ANES) 1-10 Drug form: l 19:33: INJ, ONCE, [place] 00 Stop date: 05/03/21 13:33:00 ROLLER HAND propofol 2020-06 No Route: IV, Mem oria (ANES) 1-10 Drug form: l 19:33: INJ, ONCE, [place] 00 Stop date: 05/03/21 13:33:00 ROLLER HAND lidocaine 2020-06 No Route: IV, Me moria (ANES) 1-10 Drug form: l 19:33: INJ, ONCE, Stop date: 05/03/21 13:33:00 ROLLER HAND glycopyrrol 2020-06 No Route: IV, Memoria ate (ANES) 1-10 Drug form: l 19:33: INJ, ONCE, [place] 00 Stop date: 05/03/21 13:33:00 ROLLER HAND ePHEDrine 2020-06 No Route: IV, Me moria (ANES) 1-10 Drug form: l 19:33: INJ, ONCE, [place] 00 Stop date: 05/03/21 13:33:00 ROLLER HAND midazolam 2020-06 No Route: IV, Me moria (ANES) 1-10 Drug form: l 19:33: SOLN, [place] 00 ONCE, Stop date: 05/03/21 13:33:00 ROLLER HAND fentaNYL 2020-06 No Route: IV, Mem oria (ANES) 1-10 Drug form: l 19:33: INJ, ONCE, [place] Stop date: 05/03/21 13:33:00 ROLLER HAND propofol 2020-06 No Route: IV, Mem oria (ANES) 1-10 Drug form: l 19:33: INJ, ONCE, [place] 00 Stop date: 05/03/21 13:33:00 ROLLER HAND lidocaine 2020-06 No Route: IV, Me moria (ANES) 1-10 Drug form: l 19:33: INJ, ONCE, Stop date: 05/03/21 13:33:00 ROLLER HAND glycopyrrol 2020-06 No Route: IV, Memoria ate (ANES) 1-10 Drug form: l 19:33: INJ, ONCE, Stop date: 05/03/21 13:33:00 ROLLER HAND ePHEDrine 2020-06 No Route: IV, Me moria (ANES) 1-10 Drug form: l 19:33: INJ, ONCE, Stop date: 05/03/21 13:33:00 ROLLER HAND midazolam 2020-06 No Route: IV, Me moria (ANES) 1-10 Drug form: l 19:33: SOLN, [place] 00 ONCE, Stop date: 05/03/21 13:33:00 ROLLER HAND fentaNYL 2020-06 No Route: IV, Mem oria (ANES) 1-10 Drug form: l 19:33: INJ, ONCE, Stop date: 05/03/21 13:33:00 ROLLER HAND propofol 2020-06 No Route: IV, Mem oria (ANES) 1-10 Drug form: l 19:33: INJ, ONCE, Stop date: 05/03/21 13:33:00 ROLLER HAND lidocaine 2020-06 No Route: IV, Me moria (ANES) 1-10 Drug form: l 19:33: INJ, ONCE, Stop date: 05/03/21 13:33:00 ROLLER HAND glycopyrrol 2020-06 No Route: IV, Memoria ate (ANES) 1-10 Drug form: l 19:33: INJ, ONCE, Stop date: 05/03/21 13:33:00 ROLLER HAND ePHEDrine 2020-06 No Route: IV, Me moria (ANES) 1-10 Drug form: l 19:33: INJ, ONCE, Stop date: 05/03/21 13:33:00 ROLLER HAND midazolam 2020-06 No Route: IV, Me moria (ANES) 1-10 Drug form: l 19:33: SOLN, [place] 00 ONCE, Stop date: 05/03/21 13:33:00 ROLLER HAND fentaNYL 2020-06 No Route: IV, Mem oria (ANES) 1-10 Drug form: l 19:33: INJ, ONCE, [place] 00 Stop date: 05/03/21 13:33:00 ROLLER HAND propofol 2020-06 No Route: IV, Mem oria (ANES) 1-10 Drug form: l 19:33: INJ, ONCE, [place] 00 Stop date: 05/03/21 13:33:00 ROLLER HAND lidocaine 2020-06 No Route: IV, Me moria (ANES) 1-10 Drug form: l 19:33: INJ, ONCE, [place] 00 Stop date: 05/03/21 13:33:00 ROLLER HAND glycopyrrol 2020-06 No Route: IV, Memoria ate (ANES) 1-10 Drug form: l 19:33: INJ, ONCE, [place] 00 Stop date: 05/03/21 13:33:00 ROLLER HAND ePHEDrine 2020-06 No Route: IV, Me moria (ANES) 1-10 Drug form: l 19:33: INJ, ONCE, Stop date: 05/03/21 13:33:00 ROLLER HAND midazolam 2020-06 No Route: IV, Me moria (ANES) 1-10 Drug form: l 19:33: SOLN, [place] 00 ONCE, Stop date: 05/03/21 13:33:00 ROLLER HAND fentaNYL 2020-06 No Route: IV, Mem oria (ANES) 1-10 Drug form: l 19:33: INJ, ONCE, [place] 00 Stop date: 05/03/21 13:33:00 ROLLER HAND propofol 2020-06 No Route: IV, Mem oria (ANES) 1-10 Drug form: l 19:33: INJ, ONCE, [place] 00 Stop date: 05/03/21 13:33:00 ROLLER HAND lidocaine 2020-06 No Route: IV, Me moria (ANES) 1-10 Drug form: l 19:33: INJ, ONCE, [place] 00 Stop date: 05/03/21 13:33:00 ROLLER HAND glycopyrrol 2020-06 No Route: IV, Memoria ate (ANES) 1-10 Drug form: l 19:33: INJ, ONCE, [place] 00 Stop date: 05/03/21 13:33:00 ROLLER HAND ePHEDrine 2020-06 No Route: IV, Me moria (ANES) 1-10 Drug form: l 19:33: INJ, ONCE, [place] 00 Stop date: 05/03/21 13:33:00 ROLLER HAND midazolam 2020-06 No Route: IV, Me moria (ANES) 1-10 Drug form: l 19:33: SOLN, [place] 00 ONCE, Stop date: 05/03/21 13:33:00 ROLLER HAND fentaNYL 2020-06 No Route: IV, Mem oria (ANES) 1-10 Drug form: l 19:33: INJ, ONCE, Stop date: 05/03/21 13:33:00 ROLLER HAND propofol 2020-06 No Route: IV, Mem oria (ANES) 1-10 Drug form: l 19:33: INJ, ONCE, Stop date: 05/03/21 13:33:00 ROLLER HAND lidocaine 2020-06 No Route: IV, Me moria (ANES) 1-10 Drug form: l 19:33: INJ, ONCE, Stop date: 05/03/21 13:33:00 ROLLER HAND glycopyrrol 2020-06 No Route: IV, Memoria ate (ANES) 1-10 Drug form: l 19:33: INJ, ONCE, [place] 00 Stop date: 05/03/21 13:33:00 ROLLER HAND ePHEDrine 2020-06 No Route: IV, Me moria (ANES) 1-10 Drug form: l 19:33: INJ, ONCE, Stop date: 05/03/21 13:33:00 ROLLER HAND midazolam 2020-06 No Route: IV, Me moria (ANES) 1-10 Drug form: l 19:33: SOLN, [place] 00 ONCE, Stop date: 05/03/21 13:33:00 ROLLER HAND fentaNYL 2020-06 No Route: IV, Mem oria (ANES) 1-10 Drug form: l 19:33: INJ, ONCE, [place] 00 Stop date: 05/03/21 13:33:00 ROLLER HAND propofol 2020-06 No Route: IV, Mem oria (ANES) 1-10 Drug form: l 19:33: INJ, ONCE, [place] 00 Stop date: 05/03/21 13:33:00 ROLLER HAND lidocaine 2020-06 No Route: IV, Me moria (ANES) 1-10 Drug form: l 19:33: INJ, ONCE, Stop date: 05/03/21 13:33:00 ROLLER HAND glycopyrrol 2020-06 No Route: IV, Memoria ate (ANES) 1-10 Drug form: l 19:33: INJ, ONCE, Stop date: 05/03/21 13:33:00 ROLLER HAND ePHEDrine 2020-06 No Route: IV, Me moria (ANES) 1-10 Drug form: l 19:33: INJ, ONCE, Stop date: 05/03/21 13:33:00 ROLLER HAND midazolam 2020-06 No Route: IV, Me moria (ANES) 1-10 Drug form: l 19:33: SOLN, ONCE, Stop date: 05/03/21 13:33:00 ROLLER HAND fentaNYL 2020-06 No Route: IV, Mem oria (ANES) 1-10 Drug form: l 19:33: INJ, ONCE, Stop date: 05/03/21 13:33:00 ROLLER HAND propofol 2020-06 No Route: IV, Mem oria (ANES) 1-10 Drug form: l 19:33: INJ, ONCE, Stop date: 05/03/21 13:33:00 ROLLER HAND lidocaine 2020-06 No Route: IV, Me moria (ANES) 1-10 Drug form: l 19:33: INJ, ONCE, Stop date: 05/03/21 13:33:00 ROLLER HAND glycopyrrol 2020-06 No Route: IV, Memoria ate (ANES) 1-10 Drug form: l 19:33: INJ, ONCE, Stop date: 05/03/21 13:33:00 ROLLER HAND ePHEDrine 2020-06 No Route: IV, Me moria (ANES) 1-10 Drug form: l 19:33: INJ, ONCE, Stop date: 05/03/21 13:33:00 ROLLER HAND midazolam 2020-06 No Route: IV, Me moria (ANES) 1-10 Drug form: l 19:33: SOLN, [place] 00 ONCE, Stop date: 05/03/21 13:33:00 ROLLER HAND fentaNYL 2020-06 No Route: IV, Mem oria (ANES) 1-10 Drug form: l 19:33: INJ, ONCE, [place] 00 Stop date: 05/03/21 13:33:00 ROLLER HAND propofol 2020-06 No Route: IV, Mem oria (ANES) 1-10 Drug form: l 19:33: INJ, ONCE, [place] 00 Stop date: 05/03/21 13:33:00 ROLLER HAND lidocaine 2020-06 No Route: IV, Me moria (ANES) 1-10 Drug form: l 19:33: INJ, ONCE, Stop date: 05/03/21 13:33:00 ROLLER HAND glycopyrrol 2020-06 No Route: IV, Memoria ate (ANES) 1-10 Drug form: l 19:33: INJ, ONCE, Stop date: 05/03/21 13:33:00 ROLLER HAND ePHEDrine 2020-06 No Route: IV, Me moria (ANES) 1-10 Drug form: l 19:33: INJ, ONCE, [place] 00 Stop date: 05/03/21 13:33:00 ROLLER HAND midazolam 2020-06 No Route: IV, Me moria (ANES) 1-10 Drug form: l 19:33: SOLN, [place] ONCE, Stop date: 05/03/21 13:33:00 ROLLER HAND fentaNYL 2020-06 No Route: IV, Mem oria (ANES) 1-10 Drug form: l 19:33: INJ, ONCE, [place] 00 Stop date: 05/03/21 13:33:00 ROLLER HAND propofol 2020-06 No Route: IV, Mem oria (ANES) 1-10 Drug form: l 19:33: INJ, ONCE, [place] 00 Stop date: 05/03/21 13:33:00 ROLLER HAND lidocaine 2020-06 No Route: IV, Me moria (ANES) 1-10 Drug form: l 19:33: INJ, ONCE, [place] 00 Stop date: 05/03/21 13:33:00 ROLLER HAND glycopyrrol 2021-1 No Route: IV, Memoria ate (ANES) 1-10 Drug form: l 19:33: INJ, ONCE, [place] 00 Stop date: 05/03/21 13:33:00 ROLLER HAND ePHEDrine 2020-06 No Route: IV, Me moria (ANES) 1-10 Drug form: l 19:33: INJ, ONCE, [place] 00 Stop date: 05/03/21 13:33:00 ROLLER HAND midazolam 2020-06 No Route: IV, Me moria (ANES) 1-10 Drug form: l 19:33: SOLN, [place] ONCE, Stop date: 05/03/21 13:33:00 ROLLER HAND fentaNYL 2020-06 No Route: IV, Mem oria (ANES) 1-10 Drug form: l 19:33: INJ, ONCE, Stop date: 05/03/21 13:33:00 ROLLER HAND propofol 2020-06 No Route: IV, Mem oria (ANES) 1-10 Drug form: l 19:33: INJ, ONCE, Stop date: 05/03/21 13:33:00 ROLLER HAND lidocaine 2020-06 No Route: IV, Me moria (ANES) 1-10 Drug form: l 19:33: INJ, ONCE, Stop date: 05/03/21 13:33:00 ROLLER HAND glycopyrrol 2020-06 No Route: IV, Memoria ate (ANES) 1-10 Drug form: l 19:33: INJ, ONCE, Stop date: 05/03/21 13:33:00 ROLLER HAND ePHEDrine 2020-06 No Route: IV, Me moria (ANES) 1-10 Drug form: l 19:33: INJ, ONCE, Stop date: 05/03/21 13:33:00 ROLLER HAND midazolam 2020-06 No Route: IV, Me moria (ANES) 1-10 Drug form: l 19:33: SOLN, [place] ONCE, Stop date: 05/03/21 13:33:00 ROLLER HAND fentaNYL 2020-06 No Route: IV, Mem oria (ANES) 1-10 Drug form: l 19:33: INJ, ONCE, [place] 00 Stop date: 05/03/21 13:33:00 ROLLER HAND propofol 2020-06 No Route: IV, Mem oria (ANES) 1-10 Drug form: l 19:33: INJ, ONCE, Stop date: 05/03/21 13:33:00 ROLLER HAND lidocaine 2020-06 No Route: IV, Me moria (ANES) 1-10 Drug form: l 19:33: INJ, ONCE, Stop date: 05/03/21 13:33:00 ROLLER HAND glycopyrrol 2020-06 No Route: IV, Memoria ate (ANES) 1-10 Drug form: l 19:33: INJ, ONCE, Stop date: 05/03/21 13:33:00 ROLLER HAND ePHEDrine 2020-06 No Route: IV, Me moria (ANES) 1-10 Drug form: l 19:33: INJ, ONCE, Stop date: 05/03/21 13:33:00 ROLLER HAND midazolam 2020-06 No Route: IV, Me moria (ANES) 1-10 Drug form: l 19:33: SOLN, ONCE, Stop date: 05/03/21 13:33:00 ROLLER HAND fentaNYL 2020-06 No Route: IV, Mem oria (ANES) 1-10 Drug form: l 19:33: INJ, ONCE, Stop date: 05/03/21 13:33:00 ROLLER HAND propofol 2020-06 No Route: IV, Mem oria (ANES) 1-10 Drug form: l 19:33: INJ, ONCE, Stop date: 05/03/21 13:33:00 ROLLER HAND lidocaine 2020-06 No Route: IV, Me moria (ANES) 1-10 Drug form: l 19:33: INJ, ONCE, Stop date: 05/03/21 13:33:00 ROLLER HAND glycopyrrol 2020-06 No Route: IV, Memoria ate (ANES) 1-10 Drug form: l 19:33: INJ, ONCE, Stop date: 05/03/21 13:33:00 ROLLER HAND ePHEDrine 2020-06 No Route: IV, Me moria (ANES) 1-10 Drug form: l 19:33: INJ, ONCE, Stop date: 05/03/21 13:33:00 ROLLER HAND Lactated 2020-06 No Route: IV, Mem oria Ringers 1-10 Total l Injection 18:44: Volume: Hermila nn IV (ANES) 00 1,000, 1000 mL Start date: 05/03/21 12:44:00 ROLLER HAND, Stop date: 05/03/21 13:44:00 ROLLER HAND Lactated 2020-06 No Route: IV, Mem oria Ringers 1-10 Total l Injection 18:44: Volume: Hermila nn IV (ANES) 00 1,000, 1000 mL Start date: 05/03/21 12:44:00 ROLLER HAND, Stop date: 05/03/21 13:44:00 ROLLER HAND Lactated 2020-06 No Route: IV, Mem oria Ringers 1-10 Total l Injection 18:44: Volume: Hermila nn IV (ANES) 00 1,000, 1000 mL Start date: 05/03/21 12:44:00 ROLLER HAND, Stop date: 05/03/21 13:44:00 ROLLER HAND Lactated 2020-06 No Route: IV, Mem oria Ringers 1-10 Total l Injection 18:44: Volume: Hermila nn IV (ANES) 00 1,000, 1000 mL Start date: 05/03/21 12:44:00 ROLLER HAND, Stop date: 05/03/21 13:44:00 ROLLER HAND Lactated 2020-06 No Route: IV, Mem oria Ringers 1-10 Total l Injection 18:44: Volume: Hermila nn IV (ANES) 00 1,000, 1000 mL Start date: 05/03/21 12:44:00 ROLLER HAND, Stop date: 05/03/21 13:44:00 ROLLER HAND Lactated 2020-06 No Route: IV, Mem oria Ringers 1-10 Total l Injection 18:44: Volume: Hermila nn IV (ANES) 00 1,000, 1000 mL Start date: 05/03/21 12:44:00 ROLLER HAND, Stop date: 05/03/21 13:44:00 ROLLER HAND Lactated 2020-06 No Route: IV, Mem oria Ringers 1-10 Total l Injection 18:44: Volume: Hermila nn IV (ANES) 00 1,000, 1000 mL Start date: 05/03/21 12:44:00 ROLLER HAND, Stop date: 05/03/21 13:44:00 ROLLER HAND Lactated 2020-06 No Route: IV, Mem oria Ringers 1-10 Total l Injection 18:44: Volume: Hermila nn IV (ANES) 00 1,000, 1000 mL Start date: 05/03/21 12:44:00 ROLLER HAND, Stop date: 05/03/21 13:44:00 ROLLER HAND Lactated 2020-06 No Route: IV, Mem oria Ringers 1-10 Total l Injection 18:44: Volume: Hermila nn IV (ANES) 00 1,000, 1000 mL Start date: 05/03/21 12:44:00 ROLLER HAND, Stop date: 05/03/21 13:44:00 ROLLER HAND Lactated 2020-06 No Route: IV, Mem oria Ringers 1-10 Total l Injection 18:44: Volume: Hermila nn IV (ANES) 00 1,000, 1000 mL Start date: 05/03/21 12:44:00 ROLLER HAND, Stop date: 05/03/21 13:44:00 ROLLER HAND Lactated 2020-06 No Route: IV, Mem oria Ringers 1-10 Total l Injection 18:44: Volume: Hermila nn IV (ANES) 00 1,000, 1000 mL Start date: 05/03/21 12:44:00 ROLLER HAND, Stop date: 05/03/21 13:44:00 ROLLER HAND Lactated 2020-06 No Route: IV, Mem oria Ringers 1-10 Total l Injection 18:44: Volume: Hermila nn IV (ANES) 00 1,000, 1000 mL Start date: 05/03/21 12:44:00 ROLLER HAND, Stop date: 05/03/21 13:44:00 ROLLER HAND Lactated 2020-06 No Route: IV, Mem oria Ringers 1-10 Total l Injection 18:44: Volume: Hermila nn IV (ANES) 00 1,000, 1000 mL Start date: 05/03/21 12:44:00 ROLLER HAND, Stop date: 05/03/21 13:44:00 ROLLER HAND Lactated 2020-06 No Route: IV, Mem oria Ringers 1-10 Total l Injection 18:44: Volume: Hermila nn IV (ANES) 00 1,000, 1000 mL Start date: 05/03/21 12:44:00 ROLLER HAND, Stop date: 05/03/21 13:44:00 ROLLER HAND Lactated 2020-06 No Route: IV, Mem oria Ringers 1-10 Total l Injection 18:44: Volume: Hermila nn IV (ANES) 00 1,000, 1000 mL Start date: 05/03/21 12:44:00 ROLLER HAND, Stop date: 05/03/21 13:44:00 ROLLER HAND Lactated 2020-06 No Route: IV, Mem oria Ringers 1-10 Total l Injection 18:44: Volume: Hermila nn IV (ANES) 00 1,000, 1000 mL Start date: 05/03/21 12:44:00 ROLLER HAND, Stop date: 05/03/21 13:44:00 ROLLER HAND Lactated 2020-06 No Route: IV, Mem oria Ringers 1-10 Total l Injection 18:44: Volume: Hermila nn IV (ANES) 00 1,000, 1000 mL Start date: 05/03/21 12:44:00 ROLLER HAND, Stop date: 05/03/21 13:44:00 ROLLER HAND Lactated 2020-06 No Route: IV, Mem oria Ringers 1-10 Total l Injection 18:44: Volume: Hermila nn IV (ANES) 00 1,000, 1000 mL Start date: 05/03/21 12:44:00 ROLLER HAND, Stop date: 05/03/21 13:44:00 ROLLER HAND Lactated 2020-06 No Route: IV, Mem oria Ringers 1-10 Total l Injection 18:44: Volume: Hermila nn IV (ANES) 00 1,000, 1000 mL Start date: 05/03/21 12:44:00 ROLLER HAND, Stop date: 05/03/21 13:44:00 ROLLER HAND Lactated 2020-06 No Route: IV, Mem oria Ringers 1-10 Total l Injection 18:44: Volume: Hermila nn IV (ANES) 00 1,000, 1000 mL Start date: 05/03/21 12:44:00 ROLLER HAND, Stop date: 05/03/21 13:44:00 ROLLER HAND Lactated 2020-06 No Route: IV, Mem oria Ringers 1-10 Total l Injection 18:44: Volume: Hermila nn IV (ANES) 00 1,000, 1000 mL Start date: 05/03/21 12:44:00 ROLLER HAND, Stop date: 05/03/21 13:44:00 ROLLER HAND Lactated 2020-06 No Route: IV, Mem oria Ringers 1-10 Total l Injection 18:44: Volume: Hermila nn IV (ANES) 00 1,000, 1000 mL Start date: 05/03/21 12:44:00 ROLLER HAND, Stop date: 05/03/21 13:44:00 ROLLER HAND Lactated 2020-06 No Route: IV, Mem oria Ringers 1-10 Total l Injection 18:44: Volume: Hermila nn IV (ANES) 00 1,000, 1000 mL Start date: 05/03/21 12:44:00 ROLLER HAND, Stop date: 05/03/21 13:44:00 ROLLER HAND Lactated 2020-06 No Route: IV, Mem oria Ringers 1-10 Total l Injection 18:44: Volume: Hermila nn IV (ANES) 00 1,000, 1000 mL Start date: 05/03/21 12:44:00 ROLLER HAND, Stop date: 05/03/21 13:44:00 ROLLER HAND Lactated 2020-06 No Route: IV, Mem oria Ringers 1-10 Total l Injection 18:44: Volume: Hermila nn IV (ANES) 00 1,000, 1000 mL Start date: 05/03/21 12:44:00 ROLLER HAND, Stop date: 05/03/21 13:44:00 ROLLER HAND Lactated 2020-06 No Route: IV, Mem oria Ringers 1-10 Total l Injection 18:44: Volume: Hermila nn IV (ANES) 00 1,000, 1000 mL Start date: 05/03/21 12:44:00 ROLLER HAND, Stop date: 05/03/21 13:44:00 ROLLER HAND Lactated 2020-06 No Route: IV, Mem oria Ringers 1-10 Total l Injection 18:44: Volume: Hermila nn IV (ANES) 00 1,000, 1000 mL Start date: 05/03/21 12:44:00 ROLLER HAND, Stop date: 05/03/21 13:44:00 ROLLER HAND Lactated 2020-06 No Route: IV, Mem oria Ringers 1-10 Total l Injection 18:44: Volume: Hermila nn IV (ANES) 00 1,000, 1000 mL Start date: 05/03/21 12:44:00 ROLLER HAND, Stop date: 05/03/21 13:44:00 ROLLER HAND Lactated 2020-06 No Route: IV, Mem oria Ringers 1-10 Total l Injection 18:44: Volume: Hermila nn IV (ANES) 00 1,000, 1000 mL Start date: 05/03/21 12:44:00 ROLLER HAND, Stop date: 05/03/21 13:44:00 ROLLER HAND Lactated 2020-06 No Route: IV, Mem oria Ringers 1-10 Total l Injection 18:44: Volume: Hermila nn IV (ANES) 00 1,000, 1000 mL Start date: 05/03/21 12:44:00 ROLLER HAND, Stop date: 05/03/21 13:44:00 ROLLER HAND Lactated 2020-06 No Route: IV, Mem oria Ringers 1-10 Total l Injection 18:44: Volume: Hermila nn IV (ANES) 00 1,000, 1000 mL Start date: 05/03/21 12:44:00 ROLLER HAND, Stop date: 05/03/21 13:44:00 ROLLER HAND Lactated 2020-06 No Route: IV, Mem oria Ringers 1-10 Total l Injection 18:44: Volume: Hermila nn IV (ANES) 00 1,000, 1000 mL Start date: 05/03/21 12:44:00 ROLLER HAND, Stop date: 05/03/21 13:44:00 ROLLER HAND Lactated 2020-06 No Route: IV, Mem oria Ringers 1-10 Total l Injection 18:44: Volume: Hermila nn IV (ANES) 00 1,000, 1000 mL Start date: 05/03/21 12:44:00 ROLLER HAND, Stop date: 05/03/21 13:44:00 ROLLER HAND Lactated 2020-06 No Route: IV, Mem oria Ringers 1-10 Total l Injection 18:44: Volume: Hermila nn IV (ANES) 00 1,000, 1000 mL Start date: 05/03/21 12:44:00 ROLLER HAND, Stop date: 05/03/21 13:44:00 ROLLER HAND Lactated 2020-06 No Route: IV, Mem oria Ringers 1-10 Total l Injection 18:44: Volume: Hermila nn IV (ANES) 00 1,000, 1000 mL Start date: 05/03/21 12:44:00 ROLLER HAND, Stop date: 05/03/21 13:44:00 ROLLER HAND Lactated 2020-06 No Route: IV, Mem oria Ringers 1-10 Total l Injection 18:44: Volume: Hermila nn IV (ANES) 00 1,000, 1000 mL Start date: 05/03/21 12:44:00 ROLLER HAND, Stop date: 05/03/21 13:44:00 ROLLER HAND Lactated 2020-06 No Route: IV, Mem oria Ringers 1-10 Total l Injection 18:44: Volume: Hermila nn IV (ANES) 00 1,000, 1000 mL Start date: 05/03/21 12:44:00 ROLLER HAND, Stop date: 05/03/21 13:44:00 ROLLER HAND Lactated 2020-06 No Route: IV, Mem oria Ringers 1-10 Total l Injection 18:44: Volume: Hermila nn IV (ANES) 00 1,000, 1000 mL Start date: 05/03/21 12:44:00 ROLLER HAND, Stop date: 05/03/21 13:44:00 ROLLER HAND Lactated 2020-06 No Route: IV, Mem oria Ringers 1-10 Total l Injection 18:44: Volume: Hermila nn IV (ANES) 00 1,000, 1000 mL Start date: 05/03/21 12:44:00 ROLLER HAND, Stop date: 05/03/21 13:44:00 ROLLER HAND Lactated 2020-06 No Route: IV, Mem oria Ringers 1-10 Total l Injection 18:44: Volume: Hermila nn IV (ANES) 00 1,000, 1000 mL Start date: 05/03/21 12:44:00 ROLLER HAND, Stop date: 05/03/21 13:44:00 ROLLER HAND Calcium 2020-06 No 1,000 mL, Memor ia Chloride 1-10 Rate: 75 l 0.0014 16:45: ml/hr, Ran MEQ/ML / 00 Infuse Potassium over: 13.3 Chloride hr, Route: 0.004 IV, Dosing MEQ/ML / Weight Sodium 79.545 kg, Chloride Total 0.103 Volume: MEQ/ML / 1,000, Sodium Start Lactate date: 0.028 05/03/21 MEQ/ML 10:45:00 Injectable ROLLER HAND, Solution Duration: 1 day, Stop date: 05/04/21 10:44:00 ROLLER HAND, BSA: 1.96 m2, 0 Ascorbic 2020-06 Yes 1 cap, PO, Mem oria Acid 40 MG 1-10 Daily, 0 l / Ferrous 16:45: Refill(s) Her sheikh fumarate 00 191 MG / Folic Acid 1 MG / Niacinamide 3 MG / Polysacchar coco iron complex 136 MG Oral Capsule [Integra F] Calcium 2020-06 No 1,000 mL, Memor ia Chloride 1-10 Rate: 75 l 0.0014 16:45: ml/hr, Ran MEQ/ML / 00 Infuse Potassium over: 13.3 Chloride hr, Route: 0.004 IV, Dosing MEQ/ML / Weight Sodium 79.545 kg, Chloride Total 0.103 Volume: MEQ/ML / 1,000, Sodium Start Lactate date: 0.028 05/03/21 MEQ/ML 10:45:00 Injectable ROLLER HAND, Solution Duration: 1 day, Stop date: 05/04/21 10:44:00 ROLLER HAND, BSA: 1.96 m2, 0 Ascorbic 2020-06 Yes 1 cap, PO, Mem oria Acid 40 MG 1-10 Daily, 0 l / Ferrous 16:45: Refill(s) Her sheikh fumarate 00 191 MG / Folic Acid 1 MG / Niacinamide 3 MG / Polysacchar coco iron complex 136 MG Oral Capsule [Integra F] Calcium 2020-06 No 1,000 mL, Memor ia Chloride 1-10 Rate: 75 l 0.0014 16:45: ml/hr, Ran MEQ/ML / 00 Infuse Potassium over: 13.3 Chloride hr, Route: 0.004 IV, Dosing MEQ/ML / Weight Sodium 79.545 kg, Chloride Total 0.103 Volume: MEQ/ML / 1,000, Sodium Start Lactate date: 0.028 05/03/21 MEQ/ML 10:45:00 Injectable ROLLER HAND, Solution Duration: 1 day, Stop date: 05/04/21 10:44:00 ROLLER HAND, BSA: 1.96 m2, 0 Ascorbic 2020-06 Yes 1 cap, PO, Mem oria Acid 40 MG 1-10 Daily, 0 l / Ferrous 16:45: Refill(s) Her sheikh fumarate 00 191 MG / Folic Acid 1 MG / Niacinamide 3 MG / Polysacchar coco iron complex 136 MG Oral Capsule [Integra F] Calcium 2020-06 No 1,000 mL, Memor ia Chloride 1-10 Rate: 75 l 0.0014 16:45: ml/hr, [place] MEQ/ML / 00 Infuse Potassium over: 13.3 Chloride hr, Route: 0.004 IV, Dosing MEQ/ML / Weight Sodium 79.545 kg, Chloride Total 0.103 Volume: MEQ/ML / 1,000, Sodium Start Lactate date: 0.028 05/03/21 MEQ/ML 10:45:00 Injectable ROLLER HAND, Solution Duration: 1 day, Stop date: 05/04/21 10:44:00 ROLLER HAND, BSA: 1.96 m2, 0 Ascorbic 2020-06 Yes 1 cap, PO, Mem oria Acid 40 MG 1-10 Daily, 0 l / Ferrous 16:45: Refill(s) Her sheikh fumarate 00 191 MG / Folic Acid 1 MG / Niacinamide 3 MG / Polysacchar coco iron complex 136 MG Oral Capsule [Integra F] Calcium 2020-06 No 1,000 mL, Memor ia Chloride 1-10 Rate: 75 l 0.0014 16:45: ml/hr, [place] MEQ/ML / 00 Infuse Potassium over: 13.3 Chloride hr, Route: 0.004 IV, Dosing MEQ/ML / Weight Sodium 79.545 kg, Chloride Total 0.103 Volume: MEQ/ML / 1,000, Sodium Start Lactate date: 0.028 05/03/21 MEQ/ML 10:45:00 Injectable ROLLER HAND, Solution Duration: 1 day, Stop date: 05/04/21 10:44:00 ROLLER HAND, BSA: 1.96 m2, 0 Ascorbic 2020-06 Yes 1 cap, PO, Mem oria Acid 40 MG 1-10 Daily, 0 l / Ferrous 16:45: Refill(s) Her sheikh fumarate 00 191 MG / Folic Acid 1 MG / Niacinamide 3 MG / Polysacchar coco iron complex 136 MG Oral Capsule [Integra F] Calcium 2020-06 No 1,000 mL, Memor ia Chloride 1-10 Rate: 75 l 0.0014 16:45: ml/hr, Ran MEQ/ML / 00 Infuse Potassium over: 13.3 Chloride hr, Route: 0.004 IV, Dosing MEQ/ML / Weight Sodium 79.545 kg, Chloride Total 0.103 Volume: MEQ/ML / 1,000, Sodium Start Lactate date: 0.028 05/03/21 MEQ/ML 10:45:00 Injectable ROLLER HAND, Solution Duration: 1 day, Stop date: 05/04/21 10:44:00 ROLLER HAND, BSA: 1.96 m2, 0 Ascorbic 2020-06 Yes 1 cap, PO, Mem oria Acid 40 MG 1-10 Daily, 0 l / Ferrous 16:45: Refill(s) Her sheikh fumarate 00 191 MG / Folic Acid 1 MG / Niacinamide 3 MG / Polysacchar coco iron complex 136 MG Oral Capsule [Integra F] Calcium 2020-06 No 1,000 mL, Memor ia Chloride 1-10 Rate: 75 l 0.0014 16:45: ml/hr, Ran MEQ/ML / 00 Infuse Potassium over: 13.3 Chloride hr, Route: 0.004 IV, Dosing MEQ/ML / Weight Sodium 79.545 kg, Chloride Total 0.103 Volume: MEQ/ML / 1,000, Sodium Start Lactate date: 0.028 05/03/21 MEQ/ML 10:45:00 Injectable ROLLER HAND, Solution Duration: 1 day, Stop date: 05/04/21 10:44:00 ROLLER HAND, BSA: 1.96 m2, 0 Ascorbic 2020-06 Yes 1 cap, PO, Mem oria Acid 40 MG 1-10 Daily, 0 l / Ferrous 16:45: Refill(s) Her sheikh fumarate 00 191 MG / Folic Acid 1 MG / Niacinamide 3 MG / Polysacchar coco iron complex 136 MG Oral Capsule [Integra F] Calcium 2020-06 No 1,000 mL, Memor ia Chloride 1-10 Rate: 75 l 0.0014 16:45: ml/hr, [place] MEQ/ML / 00 Infuse Potassium over: 13.3 Chloride hr, Route: 0.004 IV, Dosing MEQ/ML / Weight Sodium 79.545 kg, Chloride Total 0.103 Volume: MEQ/ML / 1,000, Sodium Start Lactate date: 0.028 05/03/21 MEQ/ML 10:45:00 Injectable ROLLER HAND, Solution Duration: 1 day, Stop date: 05/04/21 10:44:00 ROLLER HAND, BSA: 1.96 m2, 0 Ascorbic 2020-06 Yes 1 cap, PO, Mem oria Acid 40 MG 1-10 Daily, 0 l / Ferrous 16:45: Refill(s) Her sheikh fumarate 00 191 MG / Folic Acid 1 MG / Niacinamide 3 MG / Polysacchar coco iron complex 136 MG Oral Capsule [Integra F] Calcium 2020-06 No 1,000 mL, Memor ia Chloride 1-10 Rate: 75 l 0.0014 16:45: ml/hr, Ran MEQ/ML / 00 Infuse Potassium over: 13.3 Chloride hr, Route: 0.004 IV, Dosing MEQ/ML / Weight Sodium 79.545 kg, Chloride Total 0.103 Volume: MEQ/ML / 1,000, Sodium Start Lactate date: 0.028 05/03/21 MEQ/ML 10:45:00 Injectable ROLLER HAND, Solution Duration: 1 day, Stop date: 05/04/21 10:44:00 ROLLER HAND, BSA: 1.96 m2, 0 Ascorbic 2020-06 Yes 1 cap, PO, Mem oria Acid 40 MG 1-10 Daily, 0 l / Ferrous 16:45: Refill(s) Her sheikh fumarate 00 191 MG / Folic Acid 1 MG / Niacinamide 3 MG / Polysacchar coco iron complex 136 MG Oral Capsule [Integra F] Calcium 2020-06 No 1,000 mL, Memor ia Chloride 1-10 Rate: 75 l 0.0014 16:45: ml/hr, Ran MEQ/ML / 00 Infuse Potassium over: 13.3 Chloride hr, Route: 0.004 IV, Dosing MEQ/ML / Weight Sodium 79.545 kg, Chloride Total 0.103 Volume: MEQ/ML / 1,000, Sodium Start Lactate date: 0.028 05/03/21 MEQ/ML 10:45:00 Injectable ROLLER HAND, Solution Duration: 1 day, Stop date: 05/04/21 10:44:00 ROLLER HAND, BSA: 1.96 m2, 0 Ascorbic 2020-06 Yes 1 cap, PO, Mem oria Acid 40 MG 1-10 Daily, 0 l / Ferrous 16:45: Refill(s) Her sheikh fumarate 00 191 MG / Folic Acid 1 MG / Niacinamide 3 MG / Polysacchar coco iron complex 136 MG Oral Capsule [Integra F] Calcium 2020-06 No 1,000 mL, Memor ia Chloride 1-10 Rate: 75 l 0.0014 16:45: ml/hr, [place] MEQ/ML / 00 Infuse Potassium over: 13.3 Chloride hr, Route: 0.004 IV, Dosing MEQ/ML / Weight Sodium 79.545 kg, Chloride Total 0.103 Volume: MEQ/ML / 1,000, Sodium Start Lactate date: 0.028 05/03/21 MEQ/ML 10:45:00 Injectable ROLLER HAND, Solution Duration: 1 day, Stop date: 05/04/21 10:44:00 ROLLER HAND, BSA: 1.96 m2, 0 Ascorbic 2020-06 Yes 1 cap, PO, Mem oria Acid 40 MG 1-10 Daily, 0 l / Ferrous 16:45: Refill(s) Her sheikh fumarate 00 191 MG / Folic Acid 1 MG / Niacinamide 3 MG / Polysacchar coco iron complex 136 MG Oral Capsule [Integra F] Calcium 2020-06 No 1,000 mL, Memor ia Chloride 1-10 Rate: 75 l 0.0014 16:45: ml/hr, [place] MEQ/ML / 00 Infuse Potassium over: 13.3 Chloride hr, Route: 0.004 IV, Dosing MEQ/ML / Weight Sodium 79.545 kg, Chloride Total 0.103 Volume: MEQ/ML / 1,000, Sodium Start Lactate date: 0.028 05/03/21 MEQ/ML 10:45:00 Injectable ROLLER HAND, Solution Duration: 1 day, Stop date: 05/04/21 10:44:00 ROLLER HAND, BSA: 1.96 m2, 0 Ascorbic 2020-06 Yes 1 cap, PO, Mem oria Acid 40 MG 1-10 Daily, 0 l / Ferrous 16:45: Refill(s) Her sheikh fumarate 00 191 MG / Folic Acid 1 MG / Niacinamide 3 MG / Polysacchar coco iron complex 136 MG Oral Capsule [Integra F] Calcium 2020-06 No 1,000 mL, Memor ia Chloride 1-10 Rate: 75 l 0.0014 16:45: ml/hr, [place] MEQ/ML / 00 Infuse Potassium over: 13.3 Chloride hr, Route: 0.004 IV, Dosing MEQ/ML / Weight Sodium 79.545 kg, Chloride Total 0.103 Volume: MEQ/ML / 1,000, Sodium Start Lactate date: 0.028 05/03/21 MEQ/ML 10:45:00 Injectable ROLLER HAND, Solution Duration: 1 day, Stop date: 05/04/21 10:44:00 ROLLER HAND, BSA: 1.96 m2, 0 Ascorbic 2020-06 Yes 1 cap, PO, Mem oria Acid 40 MG 1-10 Daily, 0 l / Ferrous 16:45: Refill(s) Her sheikh fumarate 00 191 MG / Folic Acid 1 MG / Niacinamide 3 MG / Polysacchar coco iron complex 136 MG Oral Capsule [Integra F] Calcium 2020-06 No 1,000 mL, Memor ia Chloride 1-10 Rate: 75 l 0.0014 16:45: ml/hr, [place] MEQ/ML / 00 Infuse Potassium over: 13.3 Chloride hr, Route: 0.004 IV, Dosing MEQ/ML / Weight Sodium 79.545 kg, Chloride Total 0.103 Volume: MEQ/ML / 1,000, Sodium Start Lactate date: 0.028 05/03/21 MEQ/ML 10:45:00 Injectable ROLLER HAND, Solution Duration: 1 day, Stop date: 05/04/21 10:44:00 ROLLER HAND, BSA: 1.96 m2, 0 Ascorbic 2020-06 Yes 1 cap, PO, Mem oria Acid 40 MG 1-10 Daily, 0 l / Ferrous 16:45: Refill(s) Her sheikh fumarate 00 191 MG / Folic Acid 1 MG / Niacinamide 3 MG / Polysacchar coco iron complex 136 MG Oral Capsule [Integra F] Calcium 2020-06 No 1,000 mL, Memor ia Chloride 1-10 Rate: 75 l 0.0014 16:45: ml/hr, [place] MEQ/ML / 00 Infuse Potassium over: 13.3 Chloride hr, Route: 0.004 IV, Dosing MEQ/ML / Weight Sodium 79.545 kg, Chloride Total 0.103 Volume: MEQ/ML / 1,000, Sodium Start Lactate date: 0.028 05/03/21 MEQ/ML 10:45:00 Injectable ROLLER HAND, Solution Duration: 1 day, Stop date: 05/04/21 10:44:00 ROLLER HAND, BSA: 1.96 m2, 0 Ascorbic 2020-06 Yes 1 cap, PO, Mem oria Acid 40 MG 1-10 Daily, 0 l / Ferrous 16:45: Refill(s) Her sheikh fumarate 00 191 MG / Folic Acid 1 MG / Niacinamide 3 MG / Polysacchar coco iron complex 136 MG Oral Capsule [Integra F] Calcium 2020-06 No 1,000 mL, Memor ia Chloride 1-10 Rate: 75 l 0.0014 16:45: ml/hr, [place] MEQ/ML / 00 Infuse Potassium over: 13.3 Chloride hr, Route: 0.004 IV, Dosing MEQ/ML / Weight Sodium 79.545 kg, Chloride Total 0.103 Volume: MEQ/ML / 1,000, Sodium Start Lactate date: 0.028 05/03/21 MEQ/ML 10:45:00 Injectable ROLLER HAND, Solution Duration: 1 day, Stop date: 05/04/21 10:44:00 ROLLER HAND, BSA: 1.96 m2, 0 Ascorbic 2020-06 Yes 1 cap, PO, Mem oria Acid 40 MG 1-10 Daily, 0 l / Ferrous 16:45: Refill(s) Her sheikh fumarate 00 191 MG / Folic Acid 1 MG / Niacinamide 3 MG / Polysacchar coco iron complex 136 MG Oral Capsule [Integra F] Calcium 2020-06 No 1,000 mL, Memor ia Chloride 1-10 Rate: 75 l 0.0014 16:45: ml/hr, [place] MEQ/ML / 00 Infuse Potassium over: 13.3 Chloride hr, Route: 0.004 IV, Dosing MEQ/ML / Weight Sodium 79.545 kg, Chloride Total 0.103 Volume: MEQ/ML / 1,000, Sodium Start Lactate date: 0.028 05/03/21 MEQ/ML 10:45:00 Injectable ROLLER HAND, Solution Duration: 1 day, Stop date: 05/04/21 10:44:00 ROLLER HAND, BSA: 1.96 m2, 0 Ascorbic 2020-06 Yes 1 cap, PO, Mem oria Acid 40 MG 1-10 Daily, 0 l / Ferrous 16:45: Refill(s) Her sheikh fumarate 00 191 MG / Folic Acid 1 MG / Niacinamide 3 MG / Polysacchar coco iron complex 136 MG Oral Capsule [Integra F] Calcium 2020-06 No 1,000 mL, Memor ia Chloride 1-10 Rate: 75 l 0.0014 16:45: ml/hr, [place] MEQ/ML / 00 Infuse Potassium over: 13.3 Chloride hr, Route: 0.004 IV, Dosing MEQ/ML / Weight Sodium 79.545 kg, Chloride Total 0.103 Volume: MEQ/ML / 1,000, Sodium Start Lactate date: 0.028 05/03/21 MEQ/ML 10:45:00 Injectable ROLLER HAND, Solution Duration: 1 day, Stop date: 05/04/21 10:44:00 ROLLER HAND, BSA: 1.96 m2, 0 Ascorbic 2020-06 Yes 1 cap, PO, Mem oria Acid 40 MG 1-10 Daily, 0 l / Ferrous 16:45: Refill(s) Her sheikh fumarate 00 191 MG / Folic Acid 1 MG / Niacinamide 3 MG / Polysacchar coco iron complex 136 MG Oral Capsule [Integra F] Calcium 2020-06 No 1,000 mL, Memor ia Chloride 1-10 Rate: 75 l 0.0014 16:45: ml/hr, [place] MEQ/ML / 00 Infuse Potassium over: 13.3 Chloride hr, Route: 0.004 IV, Dosing MEQ/ML / Weight Sodium 79.545 kg, Chloride Total 0.103 Volume: MEQ/ML / 1,000, Sodium Start Lactate date: 0.028 05/03/21 MEQ/ML 10:45:00 Injectable ROLLER HAND, Solution Duration: 1 day, Stop date: 05/04/21 10:44:00 ROLLER HAND, BSA: 1.96 m2, 0 Ascorbic 2020-06 Yes 1 cap, PO, Mem oria Acid 40 MG 1-10 Daily, 0 l / Ferrous 16:45: Refill(s) Her sehikh fumarate 00 191 MG / Folic Acid 1 MG / Niacinamide 3 MG / Polysacchar coco iron complex 136 MG Oral Capsule [Integra F] Calcium 2020-06 No 1,000 mL, Memor ia Chloride 1-10 Rate: 75 l 0.0014 16:45: ml/hr, [place] MEQ/ML / 00 Infuse Potassium over: 13.3 Chloride hr, Route: 0.004 IV, Dosing MEQ/ML / Weight Sodium 79.545 kg, Chloride Total 0.103 Volume: MEQ/ML / 1,000, Sodium Start Lactate date: 0.028 05/03/21 MEQ/ML 10:45:00 Injectable ROLLER HAND, Solution Duration: 1 day, Stop date: 05/04/21 10:44:00 ROLLER HAND, BSA: 1.96 m2, 0 Ascorbic 2020-06 Yes 1 cap, PO, Mem oria Acid 40 MG 1-10 Daily, 0 l / Ferrous 16:45: Refill(s) Her sheikh fumarate 00 191 MG / Folic Acid 1 MG / Niacinamide 3 MG / Polysacchar coco iron complex 136 MG Oral Capsule [Integra F] Calcium 2020-06 No 1,000 mL, Memor ia Chloride 1-10 Rate: 75 l 0.0014 16:45: ml/hr, [place] MEQ/ML / 00 Infuse Potassium over: 13.3 Chloride hr, Route: 0.004 IV, Dosing MEQ/ML / Weight Sodium 79.545 kg, Chloride Total 0.103 Volume: MEQ/ML / 1,000, Sodium Start Lactate date: 0.028 05/03/21 MEQ/ML 10:45:00 Injectable ROLLER HAND, Solution Duration: 1 day, Stop date: 05/04/21 10:44:00 ROLLER HAND, BSA: 1.96 m2, 0 Ascorbic 2020-06 Yes 1 cap, PO, Mem oria Acid 40 MG 1-10 Daily, 0 l / Ferrous 16:45: Refill(s) Her sheikh fumarate 00 191 MG / Folic Acid 1 MG / Niacinamide 3 MG / Polysacchar coco iron complex 136 MG Oral Capsule [Integra F] Calcium 2020-06 No 1,000 mL, Memor ia Chloride 1-10 Rate: 75 l 0.0014 16:45: ml/hr, [place] MEQ/ML / 00 Infuse Potassium over: 13.3 Chloride hr, Route: 0.004 IV, Dosing MEQ/ML / Weight Sodium 79.545 kg, Chloride Total 0.103 Volume: MEQ/ML / 1,000, Sodium Start Lactate date: 0.028 05/03/21 MEQ/ML 10:45:00 Injectable ROLLER HAND, Solution Duration: 1 day, Stop date: 05/04/21 10:44:00 ROLLER HAND, BSA: 1.96 m2, 0 Ascorbic 2020-06 Yes 1 cap, PO, Mem oria Acid 40 MG 1-10 Daily, 0 l / Ferrous 16:45: Refill(s) Her sheikh fumarate 00 191 MG / Folic Acid 1 MG / Niacinamide 3 MG / Polysacchar coco iron complex 136 MG Oral Capsule [Integra F] Calcium 2020-06 No 1,000 mL, Memor ia Chloride 1-10 Rate: 75 l 0.0014 16:45: ml/hr, [place] MEQ/ML / 00 Infuse Potassium over: 13.3 Chloride hr, Route: 0.004 IV, Dosing MEQ/ML / Weight Sodium 79.545 kg, Chloride Total 0.103 Volume: MEQ/ML / 1,000, Sodium Start Lactate date: 0.028 05/03/21 MEQ/ML 10:45:00 Injectable ROLLER HAND, Solution Duration: 1 day, Stop date: 05/04/21 10:44:00 ROLLER HAND, BSA: 1.96 m2, 0 Ascorbic 2020-06 Yes 1 cap, PO, Mem oria Acid 40 MG 1-10 Daily, 0 l / Ferrous 16:45: Refill(s) Her sheikh fumarate 00 191 MG / Folic Acid 1 MG / Niacinamide 3 MG / Polysacchar coco iron complex 136 MG Oral Capsule [Integra F] Calcium 2020-06 No 1,000 mL, Memor ia Chloride 1-10 Rate: 75 l 0.0014 16:45: ml/hr, [place] MEQ/ML / 00 Infuse Potassium over: 13.3 Chloride hr, Route: 0.004 IV, Dosing MEQ/ML / Weight Sodium 79.545 kg, Chloride Total 0.103 Volume: MEQ/ML / 1,000, Sodium Start Lactate date: 0.028 05/03/21 MEQ/ML 10:45:00 Injectable ROLLER HAND, Solution Duration: 1 day, Stop date: 05/04/21 10:44:00 ROLLER HAND, BSA: 1.96 m2, 0 Ascorbic 2020-06 Yes 1 cap, PO, Mem oria Acid 40 MG 1-10 Daily, 0 l / Ferrous 16:45: Refill(s) Her sheikh fumarate 00 191 MG / Folic Acid 1 MG / Niacinamide 3 MG / Polysacchar coco iron complex 136 MG Oral Capsule [Integra F] Calcium 2020-06 No 1,000 mL, Memor ia Chloride 1-10 Rate: 75 l 0.0014 16:45: ml/hr, [place] MEQ/ML / 00 Infuse Potassium over: 13.3 Chloride hr, Route: 0.004 IV, Dosing MEQ/ML / Weight Sodium 79.545 kg, Chloride Total 0.103 Volume: MEQ/ML / 1,000, Sodium Start Lactate date: 0.028 05/03/21 MEQ/ML 10:45:00 Injectable ROLLER HAND, Solution Duration: 1 day, Stop date: 05/04/21 10:44:00 ROLLER HAND, BSA: 1.96 m2, 0 Ascorbic 2020-06 Yes 1 cap, PO, Mem oria Acid 40 MG 1-10 Daily, 0 l / Ferrous 16:45: Refill(s) Her sheikh fumarate 00 191 MG / Folic Acid 1 MG / Niacinamide 3 MG / Polysacchar coco iron complex 136 MG Oral Capsule [Integra F] Calcium 2020-06 No 1,000 mL, Memor ia Chloride 1-10 Rate: 75 l 0.0014 16:45: ml/hr, [place] MEQ/ML / 00 Infuse Potassium over: 13.3 Chloride hr, Route: 0.004 IV, Dosing MEQ/ML / Weight Sodium 79.545 kg, Chloride Total 0.103 Volume: MEQ/ML / 1,000, Sodium Start Lactate date: 0.028 05/03/21 MEQ/ML 10:45:00 Injectable ROLLER HAND, Solution Duration: 1 day, Stop date: 05/04/21 10:44:00 ROLLER HAND, BSA: 1.96 m2, 0 Ascorbic 2020-06 Yes 1 cap, PO, Mem oria Acid 40 MG 1-10 Daily, 0 l / Ferrous 16:45: Refill(s) Her sheikh fumarate 00 191 MG / Folic Acid 1 MG / Niacinamide 3 MG / Polysacchar coco iron complex 136 MG Oral Capsule [Integra F] Calcium 2020-06 No 1,000 mL, Memor ia Chloride 1-10 Rate: 75 l 0.0014 16:45: ml/hr, [place] MEQ/ML / 00 Infuse Potassium over: 13.3 Chloride hr, Route: 0.004 IV, Dosing MEQ/ML / Weight Sodium 79.545 kg, Chloride Total 0.103 Volume: MEQ/ML / 1,000, Sodium Start Lactate date: 0.028 05/03/21 MEQ/ML 10:45:00 Injectable ROLLER HAND, Solution Duration: 1 day, Stop date: 05/04/21 10:44:00 ROLLER HAND, BSA: 1.96 m2, 0 Ascorbic 2020-06 Yes 1 cap, PO, Mem oria Acid 40 MG 1-10 Daily, 0 l / Ferrous 16:45: Refill(s) Her sheikh fumarate 00 191 MG / Folic Acid 1 MG / Niacinamide 3 MG / Polysacchar coco iron complex 136 MG Oral Capsule [Integra F] Calcium 2020-06 No 1,000 mL, Memor ia Chloride 1-10 Rate: 75 l 0.0014 16:45: ml/hr, [place] MEQ/ML / 00 Infuse Potassium over: 13.3 Chloride hr, Route: 0.004 IV, Dosing MEQ/ML / Weight Sodium 79.545 kg, Chloride Total 0.103 Volume: MEQ/ML / 1,000, Sodium Start Lactate date: 0.028 05/03/21 MEQ/ML 10:45:00 Injectable ROLLER HAND, Solution Duration: 1 day, Stop date: 05/04/21 10:44:00 ROLLER HAND, BSA: 1.96 m2, 0 Ascorbic 2020-06 Yes 1 cap, PO, Mem oria Acid 40 MG 1-10 Daily, 0 l / Ferrous 16:45: Refill(s) Her sheikh fumarate 00 191 MG / Folic Acid 1 MG / Niacinamide 3 MG / Polysacchar coco iron complex 136 MG Oral Capsule [Integra F] Calcium 2020-06 No 1,000 mL, Memor ia Chloride 1-10 Rate: 75 l 0.0014 16:45: ml/hr, [place] MEQ/ML / 00 Infuse Potassium over: 13.3 Chloride hr, Route: 0.004 IV, Dosing MEQ/ML / Weight Sodium 79.545 kg, Chloride Total 0.103 Volume: MEQ/ML / 1,000, Sodium Start Lactate date: 0.028 05/03/21 MEQ/ML 10:45:00 Injectable ROLLER HAND, Solution Duration: 1 day, Stop date: 05/04/21 10:44:00 ROLLER HAND, BSA: 1.96 m2, 0 Ascorbic 2020-06 Yes 1 cap, PO, Mem oria Acid 40 MG 1-10 Daily, 0 l / Ferrous 16:45: Refill(s) Her sheikh fumarate 00 191 MG / Folic Acid 1 MG / Niacinamide 3 MG / Polysacchar coco iron complex 136 MG Oral Capsule [Integra F] Calcium 2020-06 No 1,000 mL, Memor ia Chloride 1-10 Rate: 75 l 0.0014 16:45: ml/hr, [place] MEQ/ML / 00 Infuse Potassium over: 13.3 Chloride hr, Route: 0.004 IV, Dosing MEQ/ML / Weight Sodium 79.545 kg, Chloride Total 0.103 Volume: MEQ/ML / 1,000, Sodium Start Lactate date: 0.028 05/03/21 MEQ/ML 10:45:00 Injectable ROLLER HAND, Solution Duration: 1 day, Stop date: 05/04/21 10:44:00 ROLLER HAND, BSA: 1.96 m2, 0 Ascorbic 2020-06 Yes 1 cap, PO, Mem oria Acid 40 MG 1-10 Daily, 0 l / Ferrous 16:45: Refill(s) Her sheikh fumarate 00 191 MG / Folic Acid 1 MG / Niacinamide 3 MG / Polysacchar coco iron complex 136 MG Oral Capsule [Integra F] Calcium 2020-06 No 1,000 mL, Memor ia Chloride 1-10 Rate: 75 l 0.0014 16:45: ml/hr, [place] MEQ/ML / 00 Infuse Potassium over: 13.3 Chloride hr, Route: 0.004 IV, Dosing MEQ/ML / Weight Sodium 79.545 kg, Chloride Total 0.103 Volume: MEQ/ML / 1,000, Sodium Start Lactate date: 0.028 05/03/21 MEQ/ML 10:45:00 Injectable ROLLER HAND, Solution Duration: 1 day, Stop date: 05/04/21 10:44:00 ROLLER HAND, BSA: 1.96 m2, 0 Ascorbic 2020-06 Yes 1 cap, PO, Mem oria Acid 40 MG 1-10 Daily, 0 l / Ferrous 16:45: Refill(s) Her sheikh fumarate 00 191 MG / Folic Acid 1 MG / Niacinamide 3 MG / Polysacchar coco iron complex 136 MG Oral Capsule [Integra F] Calcium 2020-06 No 1,000 mL, Memor ia Chloride 1-10 Rate: 75 l 0.0014 16:45: ml/hr, [place] MEQ/ML / 00 Infuse Potassium over: 13.3 Chloride hr, Route: 0.004 IV, Dosing MEQ/ML / Weight Sodium 79.545 kg, Chloride Total 0.103 Volume: MEQ/ML / 1,000, Sodium Start Lactate date: 0.028 05/03/21 MEQ/ML 10:45:00 Injectable ROLLER HAND, Solution Duration: 1 day, Stop date: 05/04/21 10:44:00 ROLLER HAND, BSA: 1.96 m2, 0 Ascorbic 2020-06 Yes 1 cap, PO, Mem oria Acid 40 MG 1-10 Daily, 0 l / Ferrous 16:45: Refill(s) Her sheikh fumarate 00 191 MG / Folic Acid 1 MG / Niacinamide 3 MG / Polysacchar coco iron complex 136 MG Oral Capsule [Integra F] Calcium 2020-06 No 1,000 mL, Memor ia Chloride 1-10 Rate: 75 l 0.0014 16:45: ml/hr, [place] MEQ/ML / 00 Infuse Potassium over: 13.3 Chloride hr, Route: 0.004 IV, Dosing MEQ/ML / Weight Sodium 79.545 kg, Chloride Total 0.103 Volume: MEQ/ML / 1,000, Sodium Start Lactate date: 0.028 05/03/21 MEQ/ML 10:45:00 Injectable ROLLER HAND, Solution Duration: 1 day, Stop date: 05/04/21 10:44:00 ROLLER HAND, BSA: 1.96 m2, 0 Ascorbic 2020-06 Yes 1 cap, PO, Mem oria Acid 40 MG 1-10 Daily, 0 l / Ferrous 16:45: Refill(s) Her sheikh fumarate 00 191 MG / Folic Acid 1 MG / Niacinamide 3 MG / Polysacchar coco iron complex 136 MG Oral Capsule [Integra F] Calcium 2020-06 No 1,000 mL, Memor ia Chloride 1-10 Rate: 75 l 0.0014 16:45: ml/hr, [place] MEQ/ML / 00 Infuse Potassium over: 13.3 Chloride hr, Route: 0.004 IV, Dosing MEQ/ML / Weight Sodium 79.545 kg, Chloride Total 0.103 Volume: MEQ/ML / 1,000, Sodium Start Lactate date: 0.028 05/03/21 MEQ/ML 10:45:00 Injectable ROLLER HAND, Solution Duration: 1 day, Stop date: 05/04/21 10:44:00 ROLLER HAND, BSA: 1.96 m2, 0 Ascorbic 2020-06 Yes 1 cap, PO, Mem oria Acid 40 MG 1-10 Daily, 0 l / Ferrous 16:45: Refill(s) Her sheikh fumarate 00 191 MG / Folic Acid 1 MG / Niacinamide 3 MG / Polysacchar coco iron complex 136 MG Oral Capsule [Integra F] Calcium 2020-06 No 1,000 mL, Memor ia Chloride 1-10 Rate: 75 l 0.0014 16:45: ml/hr, Ran MEQ/ML / 00 Infuse Potassium over: 13.3 Chloride hr, Route: 0.004 IV, Dosing MEQ/ML / Weight Sodium 79.545 kg, Chloride Total 0.103 Volume: MEQ/ML / 1,000, Sodium Start Lactate date: 0.028 05/03/21 MEQ/ML 10:45:00 Injectable ROLLER HAND, Solution Duration: 1 day, Stop date: 05/04/21 10:44:00 ROLLER HAND, BSA: 1.96 m2, 0 Ascorbic 2020-06 Yes 1 cap, PO, Mem oria Acid 40 MG 1-10 Daily, 0 l / Ferrous 16:45: Refill(s) Her sheikh fumarate 00 191 MG / Folic Acid 1 MG / Niacinamide 3 MG / Polysacchar coco iron complex 136 MG Oral Capsule [Integra F] Calcium 2020-06 No 1,000 mL, Memor ia Chloride 1-10 Rate: 75 l 0.0014 16:45: ml/hr, Ran MEQ/ML / 00 Infuse Potassium over: 13.3 Chloride hr, Route: 0.004 IV, Dosing MEQ/ML / Weight Sodium 79.545 kg, Chloride Total 0.103 Volume: MEQ/ML / 1,000, Sodium Start Lactate date: 0.028 05/03/21 MEQ/ML 10:45:00 Injectable ROLLER HAND, Solution Duration: 1 day, Stop date: 05/04/21 10:44:00 ROLLER HAND, BSA: 1.96 m2, 0 Ascorbic 2020-06 Yes 1 cap, PO, Mem oria Acid 40 MG 1-10 Daily, 0 l / Ferrous 16:45: Refill(s) Her sheikh fumarate 00 191 MG / Folic Acid 1 MG / Niacinamide 3 MG / Polysacchar coco iron complex 136 MG Oral Capsule [Integra F] Calcium 2020-06 No 1,000 mL, Memor ia Chloride 1-10 Rate: 75 l 0.0014 16:45: ml/hr, Ran MEQ/ML / 00 Infuse Potassium over: 13.3 Chloride hr, Route: 0.004 IV, Dosing MEQ/ML / Weight Sodium 79.545 kg, Chloride Total 0.103 Volume: MEQ/ML / 1,000, Sodium Start Lactate date: 0.028 05/03/21 MEQ/ML 10:45:00 Injectable ROLLER HAND, Solution Duration: 1 day, Stop date: 05/04/21 10:44:00 ROLLER HAND, BSA: 1.96 m2, 0 Ascorbic 2020-06 Yes 1 cap, PO, Mem oria Acid 40 MG 1-10 Daily, 0 l / Ferrous 16:45: Refill(s) Her sheikh fumarate 00 191 MG / Folic Acid 1 MG / Niacinamide 3 MG / Polysacchar coco iron complex 136 MG Oral Capsule [Integra F] Calcium 2020-06 No 1,000 mL, Memor ia Chloride 1-10 Rate: 75 l 0.0014 16:45: ml/hr, Ran MEQ/ML / 00 Infuse Potassium over: 13.3 Chloride hr, Route: 0.004 IV, Dosing MEQ/ML / Weight Sodium 79.545 kg, Chloride Total 0.103 Volume: MEQ/ML / 1,000, Sodium Start Lactate date: 0.028 05/03/21 MEQ/ML 10:45:00 Injectable ROLLER HAND, Solution Duration: 1 day, Stop date: 05/04/21 10:44:00 ROLLER HAND, BSA: 1.96 m2, 0 Ascorbic 2020-06 Yes 1 cap, PO, Mem oria Acid 40 MG 1-10 Daily, 0 l / Ferrous 16:45: Refill(s) Her sheikh fumarate 00 191 MG / Folic Acid 1 MG / Niacinamide 3 MG / Polysacchar coco iron complex 136 MG Oral Capsule [Integra F] Calcium 2020-06 No 1,000 mL, Memor ia Chloride 1-10 Rate: 75 l 0.0014 16:45: ml/hr, Ran MEQ/ML / 00 Infuse Potassium over: 13.3 Chloride hr, Route: 0.004 IV, Dosing MEQ/ML / Weight Sodium 79.545 kg, Chloride Total 0.103 Volume: MEQ/ML / 1,000, Sodium Start Lactate date: 0.028 05/03/21 MEQ/ML 10:45:00 Injectable ROLLER HAND, Solution Duration: 1 day, Stop date: 05/04/21 10:44:00 ROLLER HAND, BSA: 1.96 m2, 0 Ascorbic 2020-06 Yes 1 cap, PO, Mem oria Acid 40 MG 1-10 Daily, 0 l / Ferrous 16:45: Refill(s) Her sheikh fumarate 00 191 MG / Folic Acid 1 MG / Niacinamide 3 MG / Polysacchar coco iron complex 136 MG Oral Capsule [Integra F] Calcium 2020-06 No 1,000 mL, Memor ia Chloride 1-10 Rate: 75 l 0.0014 16:45: ml/hr, Ran MEQ/ML / 00 Infuse Potassium over: 13.3 Chloride hr, Route: 0.004 IV, Dosing MEQ/ML / Weight Sodium 79.545 kg, Chloride Total 0.103 Volume: MEQ/ML / 1,000, Sodium Start Lactate date: 0.028 05/03/21 MEQ/ML 10:45:00 Injectable ROLLER HAND, Solution Duration: 1 day, Stop date: 05/04/21 10:44:00 ROLLER HAND, BSA: 1.96 m2, 0 Ascorbic 2020-06 Yes 1 cap, PO, Mem oria Acid 40 MG 1-10 Daily, 0 l / Ferrous 16:45: Refill(s) Her sheikh fumarate 00 191 MG / Folic Acid 1 MG / Niacinamide 3 MG / Polysacchar coco iron complex 136 MG Oral Capsule [Integra F] hyoscyamine 2020-06 Yes TAKE ONE UT (Levsin) 07-03 (1) Health 0.125 MG SL 00:00: TABLET(S) tablet 00 BY MOUTH SUBLIGUALL Y EVERY 4 HOURS NEEDED FOR BLADDER SPASM. hyoscyamine 2020-06 No TAKE ONE U T (Levsin) 07-03 (1) Health 0.125 MG SL 00:00: 00:00 TABLET(S) tablet 00 :00 BY MOUTH SUBLIGUALL Y EVERY 4 HOURS NEEDED FOR BLADDER SPASM. oxybutynin 2020-06 Yes 5mg QD Take 5 mg UT (Ditropan) 1-08 by mouth 1 [facility] 5 MG tablet 00:00: (one) time 00 each day. oxybutynin 2020-06 Yes 5mg QD Take 5 mg UT (Ditropan) 1-08 by mouth 1 [facility] 5 MG tablet 00:00: (one) time 00 each day. Ciprofloxac 2020-06 Yes 500 mg = 1 Memoria in 500 MG 1-05 tab, PO, l Oral Tablet 22:40: Q12H, X 7 H ermann [Cipro] day, # 14 tab, 0 Refill(s), Pharmacy: [facility], 170.18, cm, 04/26/21 10:42:00 CDT, Height, 81.818, kg, 04/26/21 10:42:00 CDT, Weight Ciprofloxac 2020-06 Yes 500 mg = 1 Memoria in 500 MG 1-05 tab, PO, l Oral Tablet 22:40: Q12H, X 7 H ermann [Cipro] 00 day, # 14 tab, 0 Refill(s), Pharmacy: [facility], 170.18, cm, 04/26/21 10:42:00 CDT, Height, 81.818, kg, 04/26/21 10:42:00 CDT, Weight Ciprofloxac 2020-06 Yes 500 mg = 1 Memoria in 500 MG 1-05 tab, PO, l Oral Tablet 22:40: Q12H, X 7 [facility] [place] [Cipro] 00 day, # 14 tab, 0 Refill(s), Pharmacy: [facility], 170.18, cm, 04/26/21 10:42:00 CDT, Height, 81.818, kg, 04/26/21 10:42:00 CDT, Weight Ciprofloxac 2020-06 Yes 500 mg = 1 Memoria in 500 MG 1-05 tab, PO, l Oral Tablet 22:40: Q12H, X 7 [facility] [place] [Cipro] day, # 14 tab, 0 Refill(s), Pharmacy: [facility], 170.18, cm, 04/26/21 10:42:00 CDT, Height, 81.818, kg, 04/26/21 10:42:00 CDT, Weight Ciprofloxac 2020-06 Yes 500 mg = 1 Memoria in 500 MG 1-05 tab, PO, l Oral Tablet 22:40: Q12H, X 7 [facility] [place] [Cipro] day, # 14 tab, 0 Refill(s), Pharmacy: [facility], 170.18, cm, 04/26/21 10:42:00 CDT, Height, 81.818, kg, 04/26/21 10:42:00 CDT, Weight Ciprofloxac 2020-06 Yes 500 mg = 1 Memoria in 500 MG 1-05 tab, PO, l Oral Tablet 22:40: Q12H, X 7 [facility] [place] [Cipro] 00 day, # 14 tab, 0 Refill(s), Pharmacy: [facility], 170.18, cm, 04/26/21 10:42:00 CDT, Height, 81.818, kg, 04/26/21 10:42:00 CDT, Weight Ciprofloxac 2020-06 Yes 500 mg = 1 Memoria in 500 MG 1-05 tab, PO, l Oral Tablet 22:40: Q12H, X 7 [facility] [place] [Cipro] 00 day, # 14 tab, 0 Refill(s), Pharmacy: [facility], 170.18, cm, 04/26/21 10:42:00 CDT, Height, 81.818, kg, 04/26/21 10:42:00 CDT, Weight Ciprofloxac 2020-06 Yes 500 mg = 1 Memoria in 500 MG 1-05 tab, PO, l Oral Tablet 22:40: Q12H, X 7 [facility] [Cipro] 00 day, # 14 tab, 0 Refill(s), Pharmacy: [facility], 170.18, cm, 04/26/21 10:42:00 CDT, Height, 81.818, kg, 04/26/21 10:42:00 CDT, Weight Ciprofloxac 2020-06 Yes 500 mg = 1 Memoria in 500 MG 1-05 tab, PO, l Oral Tablet 22:40: Q12H, X 7 [facility] [place] [Cipro] day, # 14 tab, 0 Refill(s), Pharmacy: [facility], 170.18, cm, 04/26/21 10:42:00 CDT, Height, 81.818, kg, 04/26/21 10:42:00 CDT, Weight Ciprofloxac 2020-06 Yes 500 mg = 1 Memoria in 500 MG 1-05 tab, PO, l Oral Tablet 22:40: Q12H, X 7 H [facility] [Cipro] 00 day, # 14 tab, 0 Refill(s), Pharmacy: [facility], 170.18, cm, 04/26/21 10:42:00 CDT, Height, 81.818, kg, 04/26/21 10:42:00 CDT, Weight Ciprofloxac 2020-06 Yes 500 mg = 1 Memoria in 500 MG 1-05 tab, PO, l Oral Tablet 22:40: Q12H, X 7 H ermann [Cipro] 00 day, # 14 tab, 0 Refill(s), Pharmacy: [facility], 170.18, cm, 04/26/21 10:42:00 CDT, Height, 81.818, kg, 04/26/21 10:42:00 CDT, Weight Ciprofloxac 2020-06 Yes 500 mg = 1 Memoria in 500 MG 1-05 tab, PO, l Oral Tablet 22:40: Q12H, X 7 H ermann [Cipro] day, # 14 tab, 0 Refill(s), Pharmacy: [facility], 170.18, cm, 04/26/21 10:42:00 CDT, Height, 81.818, kg, 04/26/21 10:42:00 CDT, Weight Ciprofloxac 2020-06 Yes 500 mg = 1 Memoria in 500 MG 1-05 tab, PO, l Oral Tablet 22:40: Q12H, X 7 [facility] [Cipro] day, # 14 tab, 0 Refill(s), Pharmacy: [facility], 170.18, cm, 04/26/21 10:42:00 CDT, Height, 81.818, kg, 04/26/21 10:42:00 CDT, Weight Ciprofloxac 2020-06 Yes 500 mg = 1 Memoria in 500 MG 1-05 tab, PO, l Oral Tablet 22:40: Q12H, X 7 [facility] [Cipro] day, # 14 tab, 0 Refill(s), Pharmacy: [facility], 170.18, cm, 04/26/21 10:42:00 CDT, Height, 81.818, kg, 04/26/21 10:42:00 CDT, Weight Ciprofloxac 2020-06 Yes 500 mg = 1 Memoria in 500 MG 1-05 tab, PO, l Oral Tablet 22:40: Q12H, X 7 [facility] [Cipro] 00 day, # 14 tab, 0 Refill(s), Pharmacy: [facility], 170.18, cm, 04/26/21 10:42:00 CDT, Height, 81.818, kg, 04/26/21 10:42:00 CDT, Weight Ciprofloxac 2020-06 Yes 500 mg = 1 Memoria in 500 MG 1-05 tab, PO, l Oral Tablet 22:40: Q12H, X 7 [facility] [place] [Cipro] 00 day, # 14 tab, 0 Refill(s), Pharmacy: [facility], 170.18, cm, 04/26/21 10:42:00 CDT, Height, 81.818, kg, 04/26/21 10:42:00 CDT, Weight Ciprofloxac 2020-06 Yes 500 mg = 1 Memoria in 500 MG 1-05 tab, PO, l Oral Tablet 22:40: Q12H, X 7 [facility] [place] [Cipro] 00 day, # 14 tab, 0 Refill(s), Pharmacy: [facility], 170.18, cm, 04/26/21 10:42:00 CDT, Height, 81.818, kg, 04/26/21 10:42:00 CDT, Weight Ciprofloxac 2020-06 Yes 500 mg = 1 Memoria in 500 MG 1-05 tab, PO, l Oral Tablet 22:40: Q12H, X 7 [facility] [place] [Cipro] 00 day, # 14 tab, 0 Refill(s), Pharmacy: [facility], 170.18, cm, 04/26/21 10:42:00 CDT, Height, 81.818, kg, 04/26/21 10:42:00 CDT, Weight Ciprofloxac 2020-06 Yes 500 mg = 1 Memoria in 500 MG 1-05 tab, PO, l Oral Tablet 22:40: Q12H, X 7 [facility] [Cipro] 00 day, # 14 tab, 0 Refill(s), Pharmacy: [facility], 170.18, cm, 04/26/21 10:42:00 CDT, Height, 81.818, kg, 04/26/21 10:42:00 CDT, Weight Ciprofloxac 2020-06 Yes 500 mg = 1 Memoria in 500 MG 1-05 tab, PO, l Oral Tablet 22:40: Q12H, X 7 [facility] [Cipro] 00 day, # 14 tab, 0 Refill(s), Pharmacy: [facility], 170.18, cm, 04/26/21 10:42:00 CDT, Height, 81.818, kg, 04/26/21 10:42:00 CDT, Weight Ciprofloxac 2020-06 Yes 500 mg = 1 Memoria in 500 MG 1-05 tab, PO, l Oral Tablet 22:40: Q12H, X 7 [facility] [Cipro] 00 day, # 14 tab, 0 Refill(s), Pharmacy: [facility], 170.18, cm, 04/26/21 10:42:00 CDT, Height, 81.818, kg, 04/26/21 10:42:00 CDT, Weight Ciprofloxac 2020-06 Yes 500 mg = 1 Memoria in 500 MG 1-05 tab, PO, l Oral Tablet 22:40: Q12H, X 7 [facility] [Cipro] day, # 14 tab, 0 Refill(s), Pharmacy: [facility], 170.18, cm, 04/26/21 10:42:00 CDT, Height, 81.818, kg, 04/26/21 10:42:00 CDT, Weight Ciprofloxac 2020-06 Yes 500 mg = 1 Memoria in 500 MG 1-05 tab, PO, l Oral Tablet 22:40: Q12H, X 7 [facility] [Cipro] day, # 14 tab, 0 Refill(s), Pharmacy: [facility], 170.18, cm, 04/26/21 10:42:00 CDT, Height, 81.818, kg, 04/26/21 10:42:00 CDT, Weight Ciprofloxac 2020-06 Yes 500 mg = 1 Memoria in 500 MG 1-05 tab, PO, l Oral Tablet 22:40: Q12H, X 7 [facility] [Cipro] day, # 14 tab, 0 Refill(s), Pharmacy: [facility], 170.18, cm, 04/26/21 10:42:00 CDT, Height, 81.818, kg, 04/26/21 10:42:00 CDT, Weight Ciprofloxac 2020-06 Yes 500 mg = 1 Memoria in 500 MG 1-05 tab, PO, l Oral Tablet 22:40: Q12H, X 7 [facility] [Cipro] 00 day, # 14 tab, 0 Refill(s), Pharmacy: [facility], 170.18, cm, 04/26/21 10:42:00 CDT, Height, 81.818, kg, 04/26/21 10:42:00 CDT, Weight Ciprofloxac 2020-06 Yes 500 mg = 1 Memoria in 500 MG 1-05 tab, PO, l Oral Tablet 22:40: Q12H, X 7 [facility] [Cipro] 00 day, # 14 tab, 0 Refill(s), Pharmacy: [facility], 170.18, cm, 04/26/21 10:42:00 CDT, Height, 81.818, kg, 04/26/21 10:42:00 CDT, Weight Ciprofloxac 2020-06 Yes 500 mg = 1 Memoria in 500 MG 1-05 tab, PO, l Oral Tablet 22:40: Q12H, X 7 H ermann [Cipro] 00 day, # 14 tab, 0 Refill(s), Pharmacy: [facility], 170.18, cm, 04/26/21 10:42:00 CDT, Height, 81.818, kg, 04/26/21 10:42:00 CDT, Weight Ciprofloxac 2020-06 Yes 500 mg = 1 Memoria in 500 MG 1-05 tab, PO, l Oral Tablet 22:40: Q12H, X 7 [facility] ermann [Cipro] 00 day, # 14 tab, 0 Refill(s), Pharmacy: [facility], 170.18, cm, 04/26/21 10:42:00 CDT, Height, 81.818, kg, 04/26/21 10:42:00 CDT, Weight Ciprofloxac 2020-06 Yes 500 mg = 1 Memoria in 500 MG 1-05 tab, PO, l Oral Tablet 22:40: Q12H, X 7 H ermann [Cipro] 00 day, # 14 tab, 0 Refill(s), Pharmacy: [facility], 170.18, cm, 04/26/21 10:42:00 CDT, Height, 81.818, kg, 04/26/21 10:42:00 CDT, Weight Ciprofloxac 2020-06 Yes 500 mg = 1 Memoria in 500 MG 1-05 tab, PO, l Oral Tablet 22:40: Q12H, X 7 H ermann [Cipro] 00 day, # 14 tab, 0 Refill(s), Pharmacy: [facility], 170.18, cm, 04/26/21 10:42:00 CDT, Height, 81.818, kg, 04/26/21 10:42:00 CDT, Weight Ciprofloxac 2020-06 Yes 500 mg = 1 Memoria in 500 MG 1-05 tab, PO, l Oral Tablet 22:40: Q12H, X 7 H ermann [Cipro] 00 day, # 14 tab, 0 Refill(s), Pharmacy: [facility], 170.18, cm, 04/26/21 10:42:00 CDT, Height, 81.818, kg, 04/26/21 10:42:00 CDT, Weight Ciprofloxac 2020-06 Yes 500 mg = 1 Memoria in 500 MG 1-05 tab, PO, l Oral Tablet 22:40: Q12H, X 7 H ermann [Cipro] 00 day, # 14 tab, 0 Refill(s), Pharmacy: [facility], 170.18, cm, 04/26/21 10:42:00 CDT, Height, 81.818, kg, 04/26/21 10:42:00 CDT, Weight Ciprofloxac 2020-06 Yes 500 mg = 1 Memoria in 500 MG 1-05 tab, PO, l Oral Tablet 22:40: Q12H, X 7 H ermann [Cipro] 00 day, # 14 tab, 0 Refill(s), Pharmacy: [facility], 170.18, cm, 04/26/21 10:42:00 CDT, Height, 81.818, kg, 04/26/21 10:42:00 CDT, Weight Ciprofloxac 2020-06 Yes 500 mg = 1 Memoria in 500 MG 1-05 tab, PO, l Oral Tablet 22:40: Q12H, X 7 H ermann [Cipro] 00 day, # 14 tab, 0 Refill(s), Pharmacy: [facility], 170.18, cm, 04/26/21 10:42:00 CDT, Height, 81.818, kg, 04/26/21 10:42:00 CDT, Weight Ciprofloxac 2020-06 Yes 500 mg = 1 Memoria in 500 MG 1-05 tab, PO, l Oral Tablet 22:40: Q12H, X 7 H ermann [Cipro] 00 day, # 14 tab, 0 Refill(s), Pharmacy: [facility], 170.18, cm, 04/26/21 10:42:00 CDT, Height, 81.818, kg, 04/26/21 10:42:00 CDT, Weight Ciprofloxac 2020-06 Yes 500 mg = 1 Memoria in 500 MG 1-05 tab, PO, l Oral Tablet 22:40: Q12H, X 7 H ermann [Cipro] 00 day, # 14 tab, 0 Refill(s), Pharmacy: [facility], 170.18, cm, 04/26/21 10:42:00 CDT, Height, 81.818, kg, 04/26/21 10:42:00 CDT, Weight Ciprofloxac 2020-06 Yes 500 mg = 1 Memoria in 500 MG 1-05 tab, PO, l Oral Tablet 22:40: Q12H, X 7 H ermann [Cipro] 00 day, # 14 tab, 0 Refill(s), Pharmacy: [facility], 170.18, cm, 04/26/21 10:42:00 CDT, Height, 81.818, kg, 04/26/21 10:42:00 CDT, Weight Ciprofloxac 2020-06 Yes 500 mg = 1 Memoria in 500 MG 1-05 tab, PO, l Oral Tablet 22:40: Q12H, X 7 H ermann [Cipro] 00 day, # 14 tab, 0 Refill(s), Pharmacy: [facility], 170.18, cm, 04/26/21 10:42:00 CDT, Height, 81.818, kg, 04/26/21 10:42:00 CDT, Weight Ciprofloxac 2020-06 Yes 500 mg = 1 Memoria in 500 MG 1-05 tab, PO, l Oral Tablet 22:40: Q12H, X 7 H ermann [Cipro] day, # 14 tab, 0 Refill(s), Pharmacy: [facility], 170.18, cm, 04/26/21 10:42:00 CDT, Height, 81.818, kg, 04/26/21 10:42:00 CDT, Weight Ciprofloxac 2020-06 Yes 500 mg = 1 Memoria in 500 MG 1-05 tab, PO, l Oral Tablet 22:40: Q12H, X 7 H ermann [Cipro] day, # 14 tab, 0 Refill(s), Pharmacy: [facility], 170.18, cm, 04/26/21 10:42:00 CDT, Height, 81.818, kg, 04/26/21 10:42:00 CDT, Weight Sulfamethox 2020-06 Yes 1 tab, PO, Memoria azole 800 1-05 BID, X 7 l MG / 21:42: day, # 14 Ran Trimethopri 00 tab, 0 m 160 MG Refill(s), Oral Tablet Pharmacy: [Bactrim] [facility], 170.18, cm, 04/26/21 10:42:00 CDT, Height, 81.818, kg, 04/26/21 10:42:00 CDT, Weight Sulfamethox 2020-06 Yes 1 tab, PO, Memoria azole 800 1-05 BID, X 7 l MG / 21:42: day, # 14 [place] Trimethopri 00 tab, 0 m 160 MG Refill(s), Oral Tablet Pharmacy: [Bactrim] [facility], 170.18, cm, 04/26/21 10:42:00 CDT, Height, 81.818, kg, 04/26/21 10:42:00 CDT, Weight Sulfamethox 2020-06 Yes 1 tab, PO, Memoria azole 800 1-05 BID, X 7 l MG / 21:42: day, # 14 [place] Trimethopri 00 tab, 0 m 160 MG Refill(s), Oral Tablet Pharmacy: [[facility], 170.18, cm, 04/26/21 10:42:00 CDT, Height, 81.818, kg, 04/26/21 10:42:00 CDT, Weight Sulfamethox 2020- Yes 1 tab, PO, Memoria azole 800 1-05 BID, X 7 l MG / 21:42: day, # 14 [place] Trimethopri 00 tab, 0 m 160 MG Refill(s), Oral Tablet Pharmacy: [[facility], 170.18, cm, 04/26/21 10:42:00 CDT, Height, 81.818, kg, 04/26/21 10:42:00 CDT, Weight Sulfamethox 2020- Yes 1 tab, PO, Memoria azole 800 1-05 BID, X 7 l MG / 21:42: day, # 14 [place] Trimethopri 00 tab, 0 m 160 MG Refill(s), Oral Tablet Pharmacy: [[facility], 170.18, cm, 04/26/21 10:42:00 CDT, Height, 81.818, kg, 04/26/21 10:42:00 CDT, Weight Sulfamethox 2020- Yes 1 tab, PO, Memoria azole 800 1-05 BID, X 7 l MG / 21:42: day, # 14 [place] Trimethopri 00 tab, 0 m 160 MG Refill(s), Oral Tablet Pharmacy: [[facility], 170.18, cm, 04/26/21 10:42:00 CDT, Height, 81.818, kg, 04/26/21 10:42:00 CDT, Weight Sulfamethox 2020- Yes 1 tab, PO, Memoria azole 800 1-05 BID, X 7 l MG / 21:42: day, # 14 [place] Trimethopri 00 tab, 0 m 160 MG Refill(s), Oral Tablet Pharmacy: [[facility], 170.18, cm, 04/26/21 10:42:00 CDT, Height, 81.818, kg, 04/26/21 10:42:00 CDT, Weight Sulfamethox 2020- Yes 1 tab, PO, Memoria azole 800 1-05 BID, X 7 l MG / 21:42: day, # 14 [place] Trimethopri 00 tab, 0 m 160 MG Refill(s), Oral Tablet Pharmacy: [[facility]] [facility], 170.18, cm, 04/26/21 10:42:00 CDT, Height, 81.818, kg, 04/26/21 10:42:00 CDT, Weight Sulfamethox 2020- Yes 1 tab, PO, Memoria azole 800 1-05 BID, X 7 l MG / 21:42: day, # 14 [place] Trimethopri 00 tab, 0 m 160 MG Refill(s), Oral Tablet Pharmacy: [facility], 170.18, cm, 04/26/21 10:42:00 CDT, Height, 81.818, kg, 04/26/21 10:42:00 CDT, Weight Sulfamethox 2020- Yes 1 tab, PO, Memoria azole 800 1-05 BID, X 7 l MG / 21:42: day, # 14 [place] Trimethopri 00 tab, 0 m 160 MG Refill(s), Oral Tablet Pharmacy: [[facility]] [facility], 170.18, cm, 04/26/21 10:42:00 CDT, Height, 81.818, kg, 04/26/21 10:42:00 CDT, Weight Sulfamethox 2020- Yes 1 tab, PO, Memoria azole 800 1-05 BID, X 7 l MG / 21:42: day, # 14 [place] Trimethopri 00 tab, 0 m 160 MG Refill(s), Oral Tablet Pharmacy: [[facility]] [facility], 170.18, cm, 04/26/21 10:42:00 CDT, Height, 81.818, kg, 04/26/21 10:42:00 CDT, Weight Sulfamethox 2020- Yes 1 tab, PO, Memoria azole 800 1-05 BID, X 7 l MG / 21:42: day, # 14 [place] Trimethopri 00 tab, 0 m 160 MG Refill(s), Oral Tablet Pharmacy: [[facility], 170.18, cm, 04/26/21 10:42:00 CDT, Height, 81.818, kg, 04/26/21 10:42:00 CDT, Weight Sulfamethox 2020- Yes 1 tab, PO, Memoria azole 800 1-05 BID, X 7 l MG / 21:42: day, # 14 [place] Trimethopri 00 tab, 0 m 160 MG Refill(s), Oral Tablet Pharmacy: [[facility], 170.18, cm, 04/26/21 10:42:00 CDT, Height, 81.818, kg, 04/26/21 10:42:00 CDT, Weight Sulfamethox 2020- Yes 1 tab, PO, Memoria azole 800 1-05 BID, X 7 l MG / 21:42: day, # 14 [place] Trimethopri 00 tab, 0 m 160 MG Refill(s), Oral Tablet Pharmacy: [[facility], 170.18, cm, 04/26/21 10:42:00 CDT, Height, 81.818, kg, 04/26/21 10:42:00 CDT, Weight Sulfamethox 2020- Yes 1 tab, PO, Memoria azole 800 1-05 BID, X 7 l MG / 21:42: day, # 14 [place] Trimethopri 00 tab, 0 m 160 MG Refill(s), Oral Tablet Pharmacy: [[facility], 170.18, cm, 04/26/21 10:42:00 CDT, Height, 81.818, kg, 04/26/21 10:42:00 CDT, Weight Sulfamethox 2020- Yes 1 tab, PO, Memoria azole 800 1-05 BID, X 7 l MG / 21:42: day, # 14 [place] Trimethopri 00 tab, 0 m 160 MG Refill(s), Oral Tablet Pharmacy: [[facility], 170.18, cm, 04/26/21 10:42:00 CDT, Height, 81.818, kg, 04/26/21 10:42:00 CDT, Weight Sulfamethox 2020- Yes 1 tab, PO, Memoria azole 800 1-05 BID, X 7 l MG / 21:42: day, # 14 [place] Trimethopri 00 tab, 0 m 160 MG Refill(s), Oral Tablet Pharmacy: [[facility]] [facility], 170.18, cm, 04/26/21 10:42:00 CDT, Height, 81.818, kg, 04/26/21 10:42:00 CDT, Weight Sulfamethox 2020- Yes 1 tab, PO, Memoria azole 800 1-05 BID, X 7 l MG / 21:42: day, # 14 [place] Trimethopri 00 tab, 0 m 160 MG Refill(s), Oral Tablet Pharmacy: [[facility]] [facility], 170.18, cm, 04/26/21 10:42:00 CDT, Height, 81.818, kg, 04/26/21 10:42:00 CDT, Weight Sulfamethox 2020- Yes 1 tab, PO, Memoria azole 800 1-05 BID, X 7 l MG / 21:42: day, # 14 [place] Trimethopri 00 tab, 0 m 160 MG Refill(s), Oral Tablet Pharmacy: [[facility]] [facility], 170.18, cm, 04/26/21 10:42:00 CDT, Height, 81.818, kg, 04/26/21 10:42:00 CDT, Weight Sulfamethox 2020- Yes 1 tab, PO, Memoria azole 800 1-05 BID, X 7 l MG / 21:42: day, # 14 [place] Trimethopri 00 tab, 0 m 160 MG Refill(s), Oral Tablet Pharmacy: [[facility]] [facility], 170.18, cm, 04/26/21 10:42:00 CDT, Height, 81.818, kg, 04/26/21 10:42:00 CDT, Weight Sulfamethox 2020- Yes 1 tab, PO, Memoria azole 800 1-05 BID, X 7 l MG / 21:42: day, # 14 [place] Trimethopri 00 tab, 0 m 160 MG Refill(s), Oral Tablet Pharmacy: [[facility], 170.18, cm, 04/26/21 10:42:00 CDT, Height, 81.818, kg, 04/26/21 10:42:00 CDT, Weight Sulfamethox 2020- Yes 1 tab, PO, Memoria azole 800 1-05 BID, X 7 l MG / 21:42: day, # 14 [place] Trimethopri 00 tab, 0 m 160 MG Refill(s), Oral Tablet Pharmacy: [[facility], 170.18, cm, 04/26/21 10:42:00 CDT, Height, 81.818, kg, 04/26/21 10:42:00 CDT, Weight Sulfamethox 2020- Yes 1 tab, PO, Memoria azole 800 1-05 BID, X 7 l MG / 21:42: day, # 14 [place] Trimethopri 00 tab, 0 m 160 MG Refill(s), Oral Tablet Pharmacy: [[facility], 170.18, cm, 04/26/21 10:42:00 CDT, Height, 81.818, kg, 04/26/21 10:42:00 CDT, Weight Sulfamethox 2020- Yes 1 tab, PO, Memoria azole 800 1-05 BID, X 7 l MG / 21:42: day, # 14 [place] Trimethopri 00 tab, 0 m 160 MG Refill(s), Oral Tablet Pharmacy: [[facility], 170.18, cm, 04/26/21 10:42:00 CDT, Height, 81.818, kg, 04/26/21 10:42:00 CDT, Weight Sulfamethox 2020- Yes 1 tab, PO, Memoria azole 800 1-05 BID, X 7 l MG / 21:42: day, # 14 [place] Trimethopri 00 tab, 0 m 160 MG Refill(s), Oral Tablet Pharmacy: [[facility], 170.18, cm, 04/26/21 10:42:00 CDT, Height, 81.818, kg, 04/26/21 10:42:00 CDT, Weight Sulfamethox 2020- Yes 1 tab, PO, Memoria azole 800 1-05 BID, X 7 l MG / 21:42: day, # 14 [place] Trimethopri 00 tab, 0 m 160 MG Refill(s), Oral Tablet Pharmacy: [[facility]] [facility], 170.18, cm, 04/26/21 10:42:00 CDT, Height, 81.818, kg, 04/26/21 10:42:00 CDT, Weight Sulfamethox 2020- Yes 1 tab, PO, Memoria azole 800 1-05 BID, X 7 l MG / 21:42: day, # 14 [place] Trimethopri 00 tab, 0 m 160 MG Refill(s), Oral Tablet Pharmacy: [[facility]] [facility], 170.18, cm, 04/26/21 10:42:00 CDT, Height, 81.818, kg, 04/26/21 10:42:00 CDT, Weight Sulfamethox 2020- Yes 1 tab, PO, Memoria azole 800 1-05 BID, X 7 l MG / 21:42: day, # 14 [place] Trimethopri 00 tab, 0 m 160 MG Refill(s), Oral Tablet Pharmacy: [[facility]] [facility], 170.18, cm, 04/26/21 10:42:00 CDT, Height, 81.818, kg, 04/26/21 10:42:00 CDT, Weight Sulfamethox 2020- Yes 1 tab, PO, Memoria azole 800 1-05 BID, X 7 l MG / 21:42: day, # 14 [place] Trimethopri 00 tab, 0 m 160 MG Refill(s), Oral Tablet Pharmacy: [[facility]] [facility], 170.18, cm, 04/26/21 10:42:00 CDT, Height, 81.818, kg, 04/26/21 10:42:00 CDT, Weight Sulfamethox 2020- Yes 1 tab, PO, Memoria azole 800 1-05 BID, X 7 l MG / 21:42: day, # 14 [place] Trimethopri 00 tab, 0 m 160 MG Refill(s), Oral Tablet Pharmacy: [[facility], 170.18, cm, 04/26/21 10:42:00 CDT, Height, 81.818, kg, 04/26/21 10:42:00 CDT, Weight Sulfamethox 2020- Yes 1 tab, PO, Memoria azole 800 1-05 BID, X 7 l MG / 21:42: day, # 14 [place] Trimethopri 00 tab, 0 m 160 MG Refill(s), Oral Tablet Pharmacy: [[facility], 170.18, cm, 04/26/21 10:42:00 CDT, Height, 81.818, kg, 04/26/21 10:42:00 CDT, Weight Sulfamethox 2020- Yes 1 tab, PO, Memoria azole 800 1-05 BID, X 7 l MG / 21:42: day, # 14 [place] Trimethopri 00 tab, 0 m 160 MG Refill(s), Oral Tablet Pharmacy: [[facility], 170.18, cm, 04/26/21 10:42:00 CDT, Height, 81.818, kg, 04/26/21 10:42:00 CDT, Weight Sulfamethox 2020- Yes 1 tab, PO, Memoria azole 800 1-05 BID, X 7 l MG / 21:42: day, # 14 [place] Trimethopri 00 tab, 0 m 160 MG Refill(s), Oral Tablet Pharmacy: [[facility], 170.18, cm, 04/26/21 10:42:00 CDT, Height, 81.818, kg, 04/26/21 10:42:00 CDT, Weight Sulfamethox 2020- Yes 1 tab, PO, Memoria azole 800 1-05 BID, X 7 l MG / 21:42: day, # 14 [place] Trimethopri 00 tab, 0 m 160 MG Refill(s), Oral Tablet Pharmacy: [[facility], 170.18, cm, 04/26/21 10:42:00 CDT, Height, 81.818, kg, 04/26/21 10:42:00 CDT, Weight Sulfamethox 2020- Yes 1 tab, PO, Memoria azole 800 1-05 BID, X 7 l MG / 21:42: day, # 14 [place] Trimethopri 00 tab, 0 m 160 MG Refill(s), Oral Tablet Pharmacy: [[facility]] [facility], 170.18, cm, 04/26/21 10:42:00 CDT, Height, 81.818, kg, 04/26/21 10:42:00 CDT, Weight Sulfamethox 2020- Yes 1 tab, PO, Memoria azole 800 1-05 BID, X 7 l MG / 21:42: day, # 14 [place] Trimethopri 00 tab, 0 m 160 MG Refill(s), Oral Tablet Pharmacy: [[facility], 170.18, cm, 04/26/21 10:42:00 CDT, Height, 81.818, kg, 04/26/21 10:42:00 CDT, Weight Sulfamethox 2020- Yes 1 tab, PO, Memoria azole 800 1-05 BID, X 7 l MG / 21:42: day, # 14 [place] Trimethopri 00 tab, 0 m 160 MG Refill(s), Oral Tablet Pharmacy: [[facility], 170.18, cm, 04/26/21 10:42:00 CDT, Height, 81.818, kg, 04/26/21 10:42:00 CDT, Weight Sulfamethox 2020- Yes 1 tab, PO, Memoria azole 800 1-05 BID, X 7 l MG / 21:42: day, # 14 [place] Trimethopri 00 tab, 0 m 160 MG Refill(s), Oral Tablet Pharmacy: [[facility], 170.18, cm, 04/26/21 10:42:00 CDT, Height, 81.818, kg, 04/26/21 10:42:00 CDT, Weight Sulfamethox 2020- Yes 1 tab, PO, Memoria azole 800 1-05 BID, X 7 l MG / 21:42: day, # 14 [place] Trimethopri 00 tab, 0 m 160 MG Refill(s), Oral Tablet Pharmacy: [facility], 170.18, cm, 04/26/21 10:42:00 CDT, Height, 81.818, kg, 04/26/21 10:42:00 CDT, Weight Sulfamethox 2020-06 Yes 1 tab, PO, Memoria azole 800 1-05 BID, X 7 l MG / 21:42: day, # 14 [place] Trimethopri 00 tab, 0 m 160 MG Refill(s), Oral Tablet Pharmacy: [facility], 170.18, cm, 04/26/21 10:42:00 CDT, Height, 81.818, kg, 04/26/21 10:42:00 CDT, Weight ciprofloxac 2020-06 Yes TAKE ONE UT in (Cipro) 06-28 (1) Health 500 MG 00:00: TABLET(S) tablet 00 BY MOUTH EVERY TWELVE HOURS FOR SEVEN DAYS. ciprofloxac 2020-06 Yes TAKE ONE UT in (Cipro) 06-28 (1) Health 500 MG 00:00: TABLET(S) tablet 00 BY MOUTH EVERY TWELVE HOURS FOR SEVEN DAYS. Acetaminoph 2020-06 Yes 1 tab, PO, [facility] 325 MG / 1-03 Q6H, PRN l Hydrocodone 15:51: Pain Score [place] Bitartrate 00 7-10, 0 5 MG Oral Refill(s) Tablet Acetaminoph 2020-06 Yes 1,000 mg = [facility] en 500 MG 1-03 2 tab, PO, l Oral Tablet 15:51: Q6H, PRN [facility] [Tylenol] 00 Pain Score 4-6, 0 Refill(s) Acetaminoph 2020-06 Yes 1 tab, PO, [facility] en 325 MG / 1-03 Q6H, PRN l Hydrocodone 15:51: Pain Score [place] Bitartrate 00 7-10, 0 5 MG Oral Refill(s) Tablet Acetaminoph 2020-06 Yes 1,000 mg = [facility] en 500 MG 1-03 2 tab, PO, l Oral Tablet 15:51: Q6H, PRN [place] [facility] [Tylenol] 00 Pain Score 4-6, 0 Refill(s) Acetaminoph 2020-06 Yes 1 tab, PO, [facility] en 325 MG / 1-03 Q6H, PRN l Hydrocodone 15:51: Pain Score [place] Bitartrate 00 7-10, 0 5 MG Oral Refill(s) Tablet Acetaminoph 2020-06 Yes 1,000 mg = [facility] en 500 MG 1-03 2 tab, PO, l Oral Tablet 15:51: Q6H, PRN [place] [Tylenol] 00 Pain Score 4-6, 0 Refill(s) Acetaminoph 2020-06 Yes 1 tab, PO, [facility] 325 MG / 1-03 Q6H, PRN l Hydrocodone 15:51: Pain Score [place] Bitartrate 00 7-10, 0 5 MG Oral Refill(s) Tablet Acetaminoph 2020-06 Yes 1,000 mg = [facility] en 500 MG 1-03 2 tab, PO, l Oral Tablet 15:51: Q6H, PRN [place] [Tylenol] 00 Pain Score 4-6, 0 Refill(s) Acetaminoph 2020-06 Yes 1 tab, PO, [facility] en 325 MG / 1-03 Q6H, PRN l Hydrocodone 15:51: Pain Score [place] Bitartrate 00 7-10, 0 5 MG Oral Refill(s) Tablet Acetaminoph 2020-06 Yes 1,000 mg = [facility] en 500 MG 1-03 2 tab, PO, l Oral Tablet 15:51: Q6H, PRN [place] [Tylenol] 00 Pain Score 4-6, 0 Refill(s) Acetaminoph 2020-06 Yes 1 tab, PO, [facility] 325 MG / 1-03 Q6H, PRN l Hydrocodone 15:51: Pain Score [place] Bitartrate 00 7-10, 0 5 MG Oral Refill(s) Tablet Acetaminoph 2020-06 Yes 1,000 mg = [facility] en 500 MG 1-03 2 tab, PO, l Oral Tablet 15:51: Q6H, PRN [place] [Tylenol] 00 Pain Score 4-6, 0 Refill(s) Acetaminoph 2020-06 Yes 1 tab, PO, [facility] 325 MG / 1-03 Q6H, PRN l Hydrocodone 15:51: Pain Score [place] Bitartrate 00 7-10, 0 5 MG Oral Refill(s) Tablet Acetaminoph 2020-06 Yes 1,000 mg = [facility] en 500 MG 1-03 2 tab, PO, l Oral Tablet 15:51: Q6H, PRN [place] [Tylenol] 00 Pain Score 4-6, 0 Refill(s) Acetaminoph 2020-06 Yes 1 tab, PO, [facility] en 325 MG / 1-03 Q6H, PRN l Hydrocodone 15:51: Pain Score [place] Bitartrate 00 7-10, 0 5 MG Oral Refill(s) Tablet Acetaminoph 2020-06 Yes 1,000 mg = [facility] en 500 MG 1-03 2 tab, PO, l Oral Tablet 15:51: Q6H, PRN [place] [Tylenol] 00 Pain Score 4-6, 0 Refill(s) Acetaminoph 2020-06 Yes 1 tab, PO, [facility] 325 MG / 1-03 Q6H, PRN l Hydrocodone 15:51: Pain Score [place] Bitartrate 00 7-10, 0 5 MG Oral Refill(s) Tablet Acetaminoph 2020-06 Yes 1,000 mg = [facility] en 500 MG 1-03 2 tab, PO, l Oral Tablet 15:51: Q6H, PRN [place] [Tylenol] 00 Pain Score 4-6, 0 Refill(s) Acetaminoph 2020-06 Yes 1 tab, PO, [facility] 325 MG / 1-03 Q6H, PRN l Hydrocodone 15:51: Pain Score [place] Bitartrate 00 7-10, 0 5 MG Oral Refill(s) Tablet Acetaminoph 2020-06 Yes 1,000 mg = [facility] 500 MG 1-03 2 tab, PO, l Oral Tablet 15:51: Q6H, PRN [place] [Tylenol] 00 Pain Score 4-6, 0 Refill(s) Acetaminoph 2020-06 Yes 1 tab, PO, [facility] 325 MG / 1-03 Q6H, PRN l Hydrocodone 15:51: Pain Score [place] Bitartrate 00 7-10, 0 5 MG Oral Refill(s) Tablet Acetaminoph 2020-06 Yes 1,000 mg = [facility] en 500 MG 1-03 2 tab, PO, l Oral Tablet 15:51: Q6H, PRN [place] [Tylenol] 00 Pain Score 4-6, 0 Refill(s) Acetaminoph 2020-06 Yes 1 tab, PO, [facility] 325 MG / 1-03 Q6H, PRN l Hydrocodone 15:51: Pain Score [place] Bitartrate 00 7-10, 0 5 MG Oral Refill(s) Tablet Acetaminoph 2020-06 Yes 1,000 mg = [facility] 500 MG 1-03 2 tab, PO, l Oral Tablet 15:51: Q6H, PRN [place] [Tylenol] 00 Pain Score 4-6, 0 Refill(s) Acetaminoph 2020-06 Yes 1 tab, PO, [facility] en 325 MG / 1-03 Q6H, PRN l Hydrocodone 15:51: Pain Score [place] Bitartrate 00 7-10, 0 5 MG Oral Refill(s) Tablet Acetaminoph 2020-06 Yes 1,000 mg = [facility] en 500 MG 1-03 2 tab, PO, l Oral Tablet 15:51: Q6H, PRN [place] [Tylenol] 00 Pain Score 4-6, 0 Refill(s) Acetaminoph 2020-06 Yes 1 tab, PO, [facility] en 325 MG / 1-03 Q6H, PRN l Hydrocodone 15:51: Pain Score [place] Bitartrate 00 7-10, 0 5 MG Oral Refill(s) Tablet Acetaminoph 2020-06 Yes 1,000 mg = [facility] en 500 MG 1-03 2 tab, PO, l Oral Tablet 15:51: Q6H, PRN [place] [facility] [Tylenol] 00 Pain Score 4-6, 0 Refill(s) Acetaminoph 2020-06 Yes 1 tab, PO, [facility] en 325 MG / 1-03 Q6H, PRN l Hydrocodone 15:51: Pain Score [place] Bitartrate 00 7-10, 0 5 MG Oral Refill(s) Tablet Acetaminoph 2020-06 Yes 1,000 mg = [facility] en 500 MG 1-03 2 tab, PO, l Oral Tablet 15:51: Q6H, PRN [place] [facility] [Tylenol] 00 Pain Score 4-6, 0 Refill(s) Acetaminoph 2020-06 Yes 1 tab, PO, [facility] en 325 MG / 1-03 Q6H, PRN l Hydrocodone 15:51: Pain Score [place] Bitartrate 00 7-10, 0 5 MG Oral Refill(s) Tablet Acetaminoph 2020-06 Yes 1,000 mg = [facility] en 500 MG 1-03 2 tab, PO, l Oral Tablet 15:51: Q6H, PRN [place] [facility] [Tylenol] 00 Pain Score 4-6, 0 Refill(s) Acetaminoph 2020-06 Yes 1 tab, PO, [facility] en 325 MG / 1-03 Q6H, PRN l Hydrocodone 15:51: Pain Score [place] Bitartrate 00 7-10, 0 5 MG Oral Refill(s) Tablet Acetaminoph 2020-06 Yes 1,000 mg = [facility] en 500 MG 1-03 2 tab, PO, l Oral Tablet 15:51: Q6H, PRN [facility] [Tylenol] 00 Pain Score 4-6, 0 Refill(s) Acetaminoph 2020-06 Yes 1 tab, PO, [facility] en 325 MG / 1-03 Q6H, PRN l Hydrocodone 15:51: Pain Score [place] Bitartrate 00 7-10, 0 5 MG Oral Refill(s) Tablet Acetaminoph 2020-06 Yes 1,000 mg = [facility] en 500 MG 1-03 2 tab, PO, l Oral Tablet 15:51: Q6H, PRN [place] [facility] [Tylenol] 00 Pain Score 4-6, 0 Refill(s) Acetaminoph 2020-06 Yes 1 tab, PO, [facility] en 325 MG / 1-03 Q6H, PRN l Hydrocodone 15:51: Pain Score [place] Bitartrate 00 7-10, 0 5 MG Oral Refill(s) Tablet Acetaminoph 2020-06 Yes 1,000 mg = [facility] en 500 MG 1-03 2 tab, PO, l Oral Tablet 15:51: Q6H, PRN [facility] [Tylenol] 00 Pain Score 4-6, 0 Refill(s) Acetaminoph 2020-06 Yes 1 tab, PO, [facility] en 325 MG / 1-03 Q6H, PRN l Hydrocodone 15:51: Pain Score [place] Bitartrate 00 7-10, 0 5 MG Oral Refill(s) Tablet Acetaminoph 2020-06 Yes 1,000 mg = [facility] en 500 MG 1-03 2 tab, PO, l Oral Tablet 15:51: Q6H, PRN [facility] [Tylenol] 00 Pain Score 4-6, 0 Refill(s) Acetaminoph 2020-06 Yes 1 tab, PO, [facility] en 325 MG / 1-03 Q6H, PRN l Hydrocodone 15:51: Pain Score [place] Bitartrate 00 7-10, 0 5 MG Oral Refill(s) Tablet Acetaminoph 2020-06 Yes 1,000 mg = [facility] en 500 MG 1-03 2 tab, PO, l Oral Tablet 15:51: Q6H, PRN [facility] [Tylenol] 00 Pain Score 4-6, 0 Refill(s) Acetaminoph 2020-06 Yes 1 tab, PO, [facility] en 325 MG / 1-03 Q6H, PRN l Hydrocodone 15:51: Pain Score [place] Bitartrate 00 7-10, 0 5 MG Oral Refill(s) Tablet Acetaminoph 2020-06 Yes 1,000 mg = [facility] en 500 MG 1-03 2 tab, PO, l Oral Tablet 15:51: Q6H, PRN [facility] [Tylenol] 00 Pain Score 4-6, 0 Refill(s) Acetaminoph 2020-06 Yes 1 tab, PO, [facility] en 325 MG / 1-03 Q6H, PRN l Hydrocodone 15:51: Pain Score [place] Bitartrate 00 7-10, 0 5 MG Oral Refill(s) Tablet Acetaminoph 2020-06 Yes 1,000 mg = [facility] en 500 MG 1-03 2 tab, PO, l Oral Tablet 15:51: Q6H, PRN [facility] [Tylenol] 00 Pain Score 4-6, 0 Refill(s) Acetaminoph 2020-06 Yes 1 tab, PO, [facility] en 325 MG / 1-03 Q6H, PRN l Hydrocodone 15:51: Pain Score [place] Bitartrate 00 7-10, 0 5 MG Oral Refill(s) Tablet Acetaminoph 2020-06 Yes 1,000 mg = [facility] en 500 MG 1-03 2 tab, PO, l Oral Tablet 15:51: Q6H, PRN [facility] [Tylenol] 00 Pain Score 4-6, 0 Refill(s) Acetaminoph 2020-06 Yes 1 tab, PO, [facility] en 325 MG / 1-03 Q6H, PRN l Hydrocodone 15:51: Pain Score [place] Bitartrate 00 7-10, 0 5 MG Oral Refill(s) Tablet Acetaminoph 2020-06 Yes 1,000 mg = [facility] en 500 MG 1-03 2 tab, PO, l Oral Tablet 15:51: Q6H, PRN [facility] [Tylenol] 00 Pain Score 4-6, 0 Refill(s) Acetaminoph 2020-06 Yes 1 tab, PO, [facility] en 325 MG / 1-03 Q6H, PRN l Hydrocodone 15:51: Pain Score [place] Bitartrate 00 7-10, 0 5 MG Oral Refill(s) Tablet Acetaminoph 2020-06 Yes 1,000 mg = [facility] en 500 MG 1-03 2 tab, PO, l Oral Tablet 15:51: Q6H, PRN [facility] [Tylenol] 00 Pain Score 4-6, 0 Refill(s) Acetaminoph 2020-06 Yes 1 tab, PO, [facility] en 325 MG / 1-03 Q6H, PRN l Hydrocodone 15:51: Pain Score [place] Bitartrate 00 7-10, 0 5 MG Oral Refill(s) Tablet Acetaminoph 2020-06 Yes 1,000 mg = [facility] en 500 MG 1-03 2 tab, PO, l Oral Tablet 15:51: Q6H, PRN [place] [facility] [Tylenol] 00 Pain Score 4-6, 0 Refill(s) Acetaminoph 2020-06 Yes 1 tab, PO, [facility] en 325 MG / 1-03 Q6H, PRN l Hydrocodone 15:51: Pain Score [place] Bitartrate 00 7-10, 0 5 MG Oral Refill(s) Tablet Acetaminoph 2020-06 Yes 1,000 mg = [facility] en 500 MG 1-03 2 tab, PO, l Oral Tablet 15:51: Q6H, PRN [place] [facility] [Tylenol] 00 Pain Score 4-6, 0 Refill(s) Acetaminoph 2020-06 Yes 1 tab, PO, [facility] en 325 MG / 1-03 Q6H, PRN l Hydrocodone 15:51: Pain Score [place] Bitartrate 00 7-10, 0 5 MG Oral Refill(s) Tablet Acetaminoph 2020-06 Yes 1,000 mg = [facility] en 500 MG 1-03 2 tab, PO, l Oral Tablet 15:51: Q6H, PRN [place] [facility] [Tylenol] 00 Pain Score 4-6, 0 Refill(s) Acetaminoph 2020-06 Yes 1 tab, PO, [facility] en 325 MG / 1-03 Q6H, PRN l Hydrocodone 15:51: Pain Score [place] Bitartrate 00 7-10, 0 5 MG Oral Refill(s) Tablet Acetaminoph 2020-06 Yes 1,000 mg = [facility] en 500 MG 1-03 2 tab, PO, l Oral Tablet 15:51: Q6H, PRN [place] [facility] [Tylenol] 00 Pain Score 4-6, 0 Refill(s) Acetaminoph 2020-06 Yes 1 tab, PO, [facility] en 325 MG / 1-03 Q6H, PRN l Hydrocodone 15:51: Pain Score [place] Bitartrate 00 7-10, 0 5 MG Oral Refill(s) Tablet Acetaminoph 2020-06 Yes 1,000 mg = [facility] en 500 MG 1-03 2 tab, PO, l Oral Tablet 15:51: Q6H, PRN [facility] [Tylenol] 00 Pain Score 4-6, 0 Refill(s) Acetaminoph 2020-06 Yes 1 tab, PO, [facility] en 325 MG / 1-03 Q6H, PRN l Hydrocodone 15:51: Pain Score [place] Bitartrate 00 7-10, 0 5 MG Oral Refill(s) Tablet Acetaminoph 2020-06 Yes 1,000 mg = [facility] en 500 MG 1-03 2 tab, PO, l Oral Tablet 15:51: Q6H, PRN [place] [facility] [Tylenol] 00 Pain Score 4-6, 0 Refill(s) Acetaminoph 2020-06 Yes 1 tab, PO, [facility] en 325 MG / 1-03 Q6H, PRN l Hydrocodone 15:51: Pain Score [place] Bitartrate 00 7-10, 0 5 MG Oral Refill(s) Tablet Acetaminoph 2020-06 Yes 1,000 mg = [facility] en 500 MG 1-03 2 tab, PO, l Oral Tablet 15:51: Q6H, PRN [place] [facility] [Tylenol] 00 Pain Score 4-6, 0 Refill(s) Acetaminoph 2020-06 Yes 1 tab, PO, [facility] en 325 MG / 1-03 Q6H, PRN l Hydrocodone 15:51: Pain Score [place] Bitartrate 00 7-10, 0 5 MG Oral Refill(s) Tablet Acetaminoph 2020-06 Yes 1,000 mg = [facility] en 500 MG -03 2 tab, PO, l Oral Tablet 15:51: Q6H, PRN [place] [facility] [Tylenol] 00 Pain Score 4-6, 0 Refill(s) Acetaminoph 2020-06 Yes 1 tab, PO, [facility] en 325 MG / 1-03 Q6H, PRN l Hydrocodone 15:51: Pain Score [place] Bitartrate 00 7-10, 0 5 MG Oral Refill(s) Tablet Acetaminoph 2020-06 Yes 1,000 mg = [facility] en 500 MG 1-03 2 tab, PO, l Oral Tablet 15:51: Q6H, PRN [place] [facility] [Tylenol] 00 Pain Score 4-6, 0 Refill(s) Acetaminoph 2020-06 Yes 1 tab, PO, [facility] en 325 MG / 1-03 Q6H, PRN l Hydrocodone 15:51: Pain Score [place] Bitartrate 00 7-10, 0 5 MG Oral Refill(s) Tablet Acetaminoph 2020-06 Yes 1,000 mg = [facility] en 500 MG 1-03 2 tab, PO, l Oral Tablet 15:51: Q6H, PRN [place] [facility] [Tylenol] 00 Pain Score 4-6, 0 Refill(s) Acetaminoph 2020-06 Yes 1 tab, PO, Mem[facility] en 325 MG / 1-03 Q6H, PRN l Hydrocodone 15:51: Pain Score [place] Bitartrate 00 7-10, 0 5 MG Oral Refill(s) Tablet Acetaminoph 2020-06 Yes 1,000 mg = [facility] en 500 MG 1-03 2 tab, PO, l Oral Tablet 15:51: Q6H, PRN [place] [facility] [Tylenol] 00 Pain Score 4-6, 0 Refill(s) Acetaminoph 2020-06 Yes 1 tab, PO, [facility] en 325 MG / 1-03 Q6H, PRN l Hydrocodone 15:51: Pain Score [place] Bitartrate 00 7-10, 0 5 MG Oral Refill(s) Tablet Acetaminoph 2020-06 Yes 1,000 mg = Mem[facility] en 500 MG 1-03 2 tab, PO, l Oral Tablet 15:51: Q6H, PRN [place] [Tylenol] 00 Pain Score 4-6, 0 Refill(s) Acetaminoph 2020-06 Yes 1 tab, PO, [facility] en 325 MG / 1-03 Q6H, PRN l Hydrocodone 15:51: Pain Score [place] Bitartrate 00 7-10, 0 5 MG Oral Refill(s) Tablet Acetaminoph 2020-06 Yes 1,000 mg = [facility] en 500 MG 1-03 2 tab, PO, l Oral Tablet 15:51: Q6H, PRN [place] [facility] [Tylenol] 00 Pain Score 4-6, 0 Refill(s) Acetaminoph 2020-06 Yes 1 tab, PO, Mem[facility] en 325 MG / 1-03 Q6H, PRN l Hydrocodone 15:51: Pain Score [place] Bitartrate 00 7-10, 0 5 MG Oral Refill(s) Tablet Acetaminoph 2020-06 Yes 1,000 mg = [facility] en 500 MG 1-03 2 tab, PO, l Oral Tablet 15:51: Q6H, PRN [place] [facility] [Tylenol] 00 Pain Score 4-6, 0 Refill(s) HYDROcodone 2020-06- No [id number] 1{tbl} Take 1 UT -acetaminop 06-25 11-10 tablet by He alth hen (Ruffin) 00:00: 05:59 mouth 5-325 MG 00 :00 every 4 tablet (four) hours if needed for severe pain for up to 7 days. brinzolamid 2020-06 Yes [facility] e (Azopt) 1 06-24 Health % 13:10: ophthalmic 28 suspension brinzolamid 2020-06 Yes [facility] e (Azopt) 1 06-24 Health % 13:10: ophthalmic 28 suspension brinzolamid 2020-06 Yes [facility] e (Azopt) 1 06-24 Health % 13:10: ophthalmic 28 suspension brinzolamid 2020-06 Yes [facility] e (Azopt) 1 06-24 Health % 13:10: ophthalmic 28 suspension valACYclovi 2020-06 Yes TAKE ONE UT r (Valtrex) 0-28 (1) Health 1 g tablet 00:00: TABLET(S) 00 BY MOUTH THREE TIMES A DAY FOR 7 DAYS. valACYclovi 2020-06 Yes TAKE ONE [facility] r (Valtrex) 0-28 (1) Health 1 g tablet 00:00: TABLET(S) 00 BY MOUTH THREE TIMES A DAY FOR 7 DAYS. valACYclovi 2020-06 Yes TAKE ONE [facility] r (Valtrex) 0-28 (1) Health 1 g tablet 00:00: TABLET(S) 00 BY MOUTH THREE TIMES A DAY FOR 7 DAYS. valACYclovi 2020-06 Yes TAKE ONE UT r (Valtrex) 0-28 (1) Health 1 g tablet 00:00: TABLET(S) 00 BY MOUTH THREE TIMES A DAY FOR 7 DAYS. traMADol 2020-06 Yes 50mg Take 50 mg UT (Ultram) 50 0-27 by mouth 1 He alth MG tablet 00:00: (one) time 00 each day if needed. triamcinolo 2020-06 Yes APPLY TO UT ne 0-27 AFFECTED Health (Kenalog) 00:00: AREA 3 0.1 % cream 00 TIMES DAILY NEEDED FOR 7 DAYS. traMADol 2020-06 Yes 50mg Take 50 mg UT (Ultram) 50 0-27 by mouth 1 He alth MG tablet 00:00: (one) time 00 each day if needed. triamcinolo 2020-06 Yes APPLY TO UT ne 0-27 AFFECTED Health (Kenalog) 00:00: AREA 3 0.1 % cream 00 TIMES DAILY NEEDED FOR 7 DAYS. traMADol 2020-06 Yes 50mg Take 50 mg UT (Ultram) 50 0-27 by mouth 1 He alth MG tablet 00:00: (one) time 00 each day if needed. triamcinolo 2020-06 Yes APPLY TO UT ne 0-27 AFFECTED Health (Kenalog) 00:00: AREA 3 0.1 % cream 00 TIMES DAILY NEEDED FOR 7 DAYS. traMADol 2020-06 Yes 50mg Take 50 mg UT (Ultram) 50 0-27 by mouth 1 He alth MG tablet 00:00: (one) time 00 each day if needed. triamcinolo 2020-06 Yes APPLY TO UT ne 0-27 AFFECTED Health (Kenalog) 00:00: AREA 3 0.1 % cream 00 TIMES DAILY NEEDED FOR 7 DAYS. ondansetron 2020-06 No 4 mg = 1 Me moria 4 mg oral 0-19 tab, PO, l tablet 22:21: BID, X 5 [place] 00 day, # 10 tab, 0 Refill(s), Pharmacy: [facility], 170.18, cm, 04/09/21 3:18:00 CDT, Height, 85.4, kg, 04/09/21 3:18:00 CDT, Weight ondansetron 2020-06 No 4 mg = 1 Me moria 4 mg oral 0-19 tab, PO, l tablet 22:21: BID, X 5 Ran 00 day, # 10 tab, 0 Refill(s), Pharmacy: [facility], 170.18, cm, 04/09/21 3:18:00 CDT, Height, 85.4, kg, 04/09/21 3:18:00 CDT, Weight ondansetron 2020-06 No 4 mg = 1 Me moria 4 mg oral 0-19 tab, PO, l tablet 22:21: BID, X 5 [place] 00 day, # 10 tab, 0 Refill(s), Pharmacy: [facility], 170.18, cm, 04/09/21 3:18:00 CDT, Height, 85.4, kg, 04/09/21 3:18:00 CDT, Weight ondansetron 2020-06 No 4 mg = 1 Me moria 4 mg oral 0-19 tab, PO, l tablet 22:21: BID, X 5 Ran 00 day, # 10 tab, 0 Refill(s), Pharmacy: [facility], 170.18, cm, 04/09/21 3:18:00 CDT, Height, 85.4, kg, 04/09/21 3:18:00 CDT, Weight ondansetron 2020-06 No 4 mg = 1 Me moria 4 mg oral 0-19 tab, PO, l tablet 22:21: BID, X 5 [place] 00 day, # 10 tab, 0 Refill(s), Pharmacy: [facility], 170.18, cm, 04/09/21 3:18:00 CDT, Height, 85.4, kg, 04/09/21 3:18:00 CDT, Weight ondansetron 2020-06 No 4 mg = 1 Me moria 4 mg oral 0-19 tab, PO, l tablet 22:21: BID, X 5 Ran 00 day, # 10 tab, 0 Refill(s), Pharmacy: [facility], 170.18, cm, 04/09/21 3:18:00 CDT, Height, 85.4, kg, 04/09/21 3:18:00 CDT, Weight ondansetron 2020-06 No 4 mg = 1 Me moria 4 mg oral 0-19 tab, PO, l tablet 22:21: BID, X 5 Ran 00 day, # 10 tab, 0 Refill(s), Pharmacy: [facility], 170.18, cm, 04/09/21 3:18:00 CDT, Height, 85.4, kg, 04/09/21 3:18:00 CDT, Weight ondansetron 2020-06 No 4 mg = 1 Me moria 4 mg oral 0-19 tab, PO, l tablet 22:21: BID, X 5 [place] 00 day, # 10 tab, 0 Refill(s), Pharmacy: [facility], 170.18, cm, 04/09/21 3:18:00 CDT, Height, 85.4, kg, 04/09/21 3:18:00 CDT, Weight ondansetron 2020-06 No 4 mg = 1 Me moria 4 mg oral 0-19 tab, PO, l tablet 22:21: BID, X 5 Ran 00 day, # 10 tab, 0 Refill(s), Pharmacy: [facility], 170.18, cm, 04/09/21 3:18:00 CDT, Height, 85.4, kg, 04/09/21 3:18:00 CDT, Weight ondansetron 2020-06 No 4 mg = 1 Me moria 4 mg oral 0-19 tab, PO, l tablet 22:21: BID, X 5 Ran 00 day, # 10 tab, 0 Refill(s), Pharmacy: [facility], 170.18, cm, 04/09/21 3:18:00 CDT, Height, 85.4, kg, 04/09/21 3:18:00 CDT, Weight ondansetron 2020-06 No 4 mg = 1 Me moria 4 mg oral 0-19 tab, PO, l tablet 22:21: BID, X 5 [place] 00 day, # 10 tab, 0 Refill(s), Pharmacy: [facility], 170.18, cm, 04/09/21 3:18:00 CDT, Height, 85.4, kg, 04/09/21 3:18:00 CDT, Weight ondansetron 2020-06 No 4 mg = 1 Me moria 4 mg oral 0-19 tab, PO, l tablet 22:21: BID, X 5 Ran 00 day, # 10 tab, 0 Refill(s), Pharmacy: [facility], 170.18, cm, 04/09/21 3:18:00 CDT, Height, 85.4, kg, 04/09/21 3:18:00 CDT, Weight ondansetron 2020-06 No 4 mg = 1 Me moria 4 mg oral 0-19 tab, PO, l tablet 22:21: BID, X 5 Ran 00 day, # 10 tab, 0 Refill(s), Pharmacy: [facility], 170.18, cm, 04/09/21 3:18:00 CDT, Height, 85.4, kg, 04/09/21 3:18:00 CDT, Weight ondansetron 2020-06 No 4 mg = 1 Me moria 4 mg oral 0-19 tab, PO, l tablet 22:21: BID, X 5 [place] 00 day, # 10 tab, 0 Refill(s), Pharmacy: [facility], 170.18, cm, 04/09/21 3:18:00 CDT, Height, 85.4, kg, 04/09/21 3:18:00 CDT, Weight ondansetron 2020-06 No 4 mg = 1 Me moria 4 mg oral 0-19 tab, PO, l tablet 22:21: BID, X 5 Ran 00 day, # 10 tab, 0 Refill(s), Pharmacy: [facility], 170.18, cm, 04/09/21 3:18:00 CDT, Height, 85.4, kg, 04/09/21 3:18:00 CDT, Weight ondansetron 2020-06 No 4 mg = 1 Me moria 4 mg oral 0-19 tab, PO, l tablet 22:21: BID, X 5 [place] 00 day, # 10 tab, 0 Refill(s), Pharmacy: [facility], 170.18, cm, 04/09/21 3:18:00 CDT, Height, 85.4, kg, 04/09/21 3:18:00 CDT, Weight ondansetron 2020-06 No 4 mg = 1 Me moria 4 mg oral 0-19 tab, PO, l tablet 22:21: BID, X 5 Ran 00 day, # 10 tab, 0 Refill(s), Pharmacy: [facility], 170.18, cm, 04/09/21 3:18:00 CDT, Height, 85.4, kg, 04/09/21 3:18:00 CDT, Weight ondansetron 2020-06 No 4 mg = 1 Me moria 4 mg oral 0-19 tab, PO, l tablet 22:21: BID, X 5 [place] 00 day, # 10 tab, 0 Refill(s), Pharmacy: [facility], 170.18, cm, 04/09/21 3:18:00 CDT, Height, 85.4, kg, 04/09/21 3:18:00 CDT, Weight ondansetron 2020-06 No 4 mg = 1 Me moria 4 mg oral 0-19 tab, PO, l tablet 22:21: BID, X 5 [place] 00 day, # 10 tab, 0 Refill(s), Pharmacy: [facility], 170.18, cm, 04/09/21 3:18:00 CDT, Height, 85.4, kg, 04/09/21 3:18:00 CDT, Weight ondansetron 2020-06 No 4 mg = 1 Me moria 4 mg oral 0-19 tab, PO, l tablet 22:21: BID, X 5 [place] 00 day, # 10 tab, 0 Refill(s), Pharmacy: [facility], 170.18, cm, 04/09/21 3:18:00 CDT, Height, 85.4, kg, 04/09/21 3:18:00 CDT, Weight ondansetron 2020-06 No 4 mg = 1 Me moria 4 mg oral 0-19 tab, PO, l tablet 22:21: BID, X 5 Ran 00 day, # 10 tab, 0 Refill(s), Pharmacy: [facility], 170.18, cm, 04/09/21 3:18:00 CDT, Height, 85.4, kg, 04/09/21 3:18:00 CDT, Weight ondansetron 2020-06 No 4 mg = 1 Me moria 4 mg oral 0-19 tab, PO, l tablet 22:21: BID, X 5 Ran 00 day, # 10 tab, 0 Refill(s), Pharmacy: [facility], 170.18, cm, 04/09/21 3:18:00 CDT, Height, 85.4, kg, 04/09/21 3:18:00 CDT, Weight ondansetron 2020-06 No 4 mg = 1 Me moria 4 mg oral 0-19 tab, PO, l tablet 22:21: BID, X 5 [place] 00 day, # 10 tab, 0 Refill(s), Pharmacy: [facility], 170.18, cm, 04/09/21 3:18:00 CDT, Height, 85.4, kg, 04/09/21 3:18:00 CDT, Weight ondansetron 2020-06 No 4 mg = 1 Me moria 4 mg oral 0-19 tab, PO, l tablet 22:21: BID, X 5 [place] 00 day, # 10 tab, 0 Refill(s), Pharmacy: [facility], 170.18, cm, 04/09/21 3:18:00 CDT, Height, 85.4, kg, 04/09/21 3:18:00 CDT, Weight ondansetron 2020-06 No 4 mg = 1 Me moria 4 mg oral 0-19 tab, PO, l tablet 22:21: BID, X 5 [place] 00 day, # 10 tab, 0 Refill(s), Pharmacy: [facility], 170.18, cm, 04/09/21 3:18:00 CDT, Height, 85.4, kg, 04/09/21 3:18:00 CDT, Weight ondansetron 2020-06 No 4 mg = 1 Me [place] 4 mg oral 0-19 tab, PO, l tablet 22:21: BID, X 5 [place] 00 day, # 10 tab, 0 Refill(s), Pharmacy: [facility], 170.18, cm, 04/09/21 3:18:00 CDT, Height, 85.4, kg, 04/09/21 3:18:00 CDT, Weight ondansetron 2020-06 No 4 mg = 1 [place] 4 mg oral 0-19 tab, PO, l tablet 22:21: BID, X 5 [place] 00 day, # 10 tab, 0 Refill(s), Pharmacy: [facility], 170.18, cm, 04/09/21 3:18:00 CDT, Height, 85.4, kg, 04/09/21 3:18:00 CDT, Weight ondansetron 2020-06 No 4 mg = 1 [place] 4 mg oral 0-19 tab, PO, l tablet 22:21: BID, X 5 [place] 00 day, # 10 tab, 0 Refill(s), Pharmacy: [facility], 170.18, cm, 04/09/21 3:18:00 CDT, Height, 85.4, kg, 04/09/21 3:18:00 CDT, Weight ondansetron 2020-06 No 4 mg = 1 [place] 4 mg oral 0-19 tab, PO, l tablet 22:21: BID, X 5 [place] 00 day, # 10 tab, 0 Refill(s), Pharmacy: [facility], 170.18, cm, 04/09/21 3:18:00 CDT, Height, 85.4, kg, 04/09/21 3:18:00 CDT, Weight ondansetron 2020-06 No 4 mg = 1 [place] 4 mg oral 0-19 tab, PO, l tablet 22:21: BID, X 5 [place] 00 day, # 10 tab, 0 Refill(s), Pharmacy: [facility], 170.18, cm, 04/09/21 3:18:00 CDT, Height, 85.4, kg, 04/09/21 3:18:00 CDT, Weight ondansetron 2020-06 No 4 mg = 1 [place] 4 mg oral 0-19 tab, PO, l tablet 22:21: BID, X 5 [place] 00 day, # 10 tab, 0 Refill(s), Pharmacy: [facility], 170.18, cm, 04/09/21 3:18:00 CDT, Height, 85.4, kg, 04/09/21 3:18:00 CDT, Weight ondansetron 2020-06 No 4 mg = 1 [place] 4 mg oral 0-19 tab, PO, l tablet 22:21: BID, X 5 [place] 00 day, # 10 tab, 0 Refill(s), Pharmacy: [facility], 170.18, cm, 04/09/21 3:18:00 CDT, Height, 85.4, kg, 04/09/21 3:18:00 CDT, Weight ondansetron 2020-06 No 4 mg = 1 [place] 4 mg oral 0-19 tab, PO, l tablet 22:21: BID, X 5 [place] 00 day, # 10 tab, 0 Refill(s), Pharmacy: [facility], 170.18, cm, 04/09/21 3:18:00 CDT, Height, 85.4, kg, 04/09/21 3:18:00 CDT, Weight ondansetron 2020-06 No 4 mg = 1 [place] 4 mg oral 0-19 tab, PO, l tablet 22:21: BID, X 5 [place] 00 day, # 10 tab, 0 Refill(s), Pharmacy: [facility], 170.18, cm, 04/09/21 3:18:00 CDT, Height, 85.4, kg, 04/09/21 3:18:00 CDT, Weight ondansetron 2020-06 No 4 mg = 1 [place] 4 mg oral 0-19 tab, PO, l tablet 22:21: BID, X 5 [place] 00 day, # 10 tab, 0 Refill(s), Pharmacy: [facility], 170.18, cm, 04/09/21 3:18:00 CDT, Height, 85.4, kg, 04/09/21 3:18:00 CDT, Weight ondansetron 2020-06 No 4 mg = 1 [place] 4 mg oral 0-19 tab, PO, l tablet 22:21: BID, X 5 [place] 00 day, # 10 tab, 0 Refill(s), Pharmacy: [facility], 170.18, cm, 04/09/21 3:18:00 CDT, Height, 85.4, kg, 04/09/21 3:18:00 CDT, Weight ondansetron 2020-06 No 4 mg = 1 [place] 4 mg oral 0-19 tab, PO, l tablet 22:21: BID, X 5 [place] 00 day, # 10 tab, 0 Refill(s), Pharmacy: [facility], 170.18, cm, 04/09/21 3:18:00 CDT, Height, 85.4, kg, 04/09/21 3:18:00 CDT, Weight ondansetron 2020-06 No 4 mg = 1 [place] 4 mg oral 0-19 tab, PO, l tablet 22:21: BID, X 5 [place] 00 day, # 10 tab, 0 Refill(s), Pharmacy: [facility], 170.18, cm, 04/09/21 3:18:00 CDT, Height, 85.4, kg, 04/09/21 3:18:00 CDT, Weight ondansetron 2020-06 No 4 mg = 1 [place] 4 mg oral 0-19 tab, PO, l tablet 22:21: BID, X 5 [place] 00 day, # 10 tab, 0 Refill(s), Pharmacy: [facility], 170.18, cm, 04/09/21 3:18:00 CDT, Height, 85.4, kg, 04/09/21 3:18:00 CDT, Weight ondansetron 2020-06 No 4 mg = 1 Me moria 4 mg oral 0-19 tab, PO, l tablet 22:21: BID, X 5 [place] 00 day, # 10 tab, 0 Refill(s), Pharmacy: [facility], 170.18, cm, 04/09/21 3:18:00 CDT, Height, 85.4, kg, 04/09/21 3:18:00 CDT, Weight Lidocaine 2020-06 Yes 1 patch, Sherman timbo 0.04 MG/MG 0-19 TOP, Q24H, l Medicated 22:20: X 10 day, Her sheikh Patch 00 # 10 patch, 0 Refill(s), Pharmacy: [facility], 170.18, cm, 04/09/21 3:18:00 CDT, Height, 85.4, kg, 04/09/21 3:18:00 CDT, Weight Acetaminoph 2020-06 No 1-2 tab, Me moria en 325 MG / 0-19 PO, Q4-6H, l Hydrocodone 22:20: PRN Pain, H ermann Bitartrate 00 X 5 day, # 10 MG Oral 30 tab, 0 Tablet Refill(s), [[facility]: ] [facility], 170.18, cm, 04/09/21 3:18:00 CDT, Height, 85.4, kg, 04/09/21 3:18:00 CDT, Weight Lidocaine 2020-06 Yes 1 patch, Sherman timbo 0.04 MG/MG 0-19 TOP, Q24H, l Medicated 22:20: X 10 day, Her sheikh Patch 00 # 10 patch, 0 Refill(s), Pharmacy: [facility], 170.18, cm, 04/09/21 3:18:00 CDT, Height, 85.4, kg, 04/09/21 3:18:00 CDT, Weight Acetaminoph 2020-06 No 1-2 tab, Me moria en 325 MG / 0-19 PO, Q4-6H, l Hydrocodone 22:20: PRN Pain, H ermann Bitartrate 00 X 5 day, # 10 MG Oral 30 tab, 0 Tablet Refill(s), [[facility]: ] [facility], 170.18, cm, 04/09/21 3:18:00 CDT, Height, 85.4, kg, 04/09/21 3:18:00 CDT, Weight Lidocaine 2020-06 Yes 1 patch, Sherman timbo 0.04 MG/MG 0-19 TOP, Q24H, l Medicated 22:20: X 10 day, Her sheikh Patch 00 # 10 patch, 0 Refill(s), Pharmacy: [facility], 170.18, cm, 04/09/21 3:18:00 CDT, Height, 85.4, kg, 04/09/21 3:18:00 CDT, Weight Acetaminoph 2020-06 No 1-2 tab, Me moria en 325 MG / 0-19 PO, Q4-6H, l Hydrocodone 22:20: PRN Pain, H ermann Bitartrate 00 X 5 day, # 10 MG Oral 30 tab, 0 Tablet Refill(s), [[facility]: ] [facility], 170.18, cm, 04/09/21 3:18:00 CDT, Height, 85.4, kg, 04/09/21 3:18:00 CDT, Weight Lidocaine 2020-06 Yes 1 patch, Sherman timbo 0.04 MG/MG 0-19 TOP, Q24H, l Medicated 22:20: X 10 day, Her sheikh Patch 00 # 10 patch, 0 Refill(s), Pharmacy: [facility], 170.18, cm, 04/09/21 3:18:00 CDT, Height, 85.4, kg, 04/09/21 3:18:00 CDT, Weight Acetaminoph 2020-06 No 1-2 tab, Me moria en 325 MG / 0-19 PO, Q4-6H, l Hydrocodone 22:20: PRN Pain, H ermann Bitartrate 00 X 5 day, # 10 MG Oral 30 tab, 0 Tablet Refill(s), [[facility]: ] [facility], 170.18, cm, 04/09/21 3:18:00 CDT, Height, 85.4, kg, 04/09/21 3:18:00 CDT, Weight Lidocaine 2020-06 Yes 1 patch, Sheramn timbo 0.04 MG/MG 0-19 TOP, Q24H, l Medicated 22:20: X 10 day, Her sheikh Patch 00 # 10 patch, 0 Refill(s), Pharmacy: [facility], 170.18, cm, 04/09/21 3:18:00 CDT, Height, 85.4, kg, 04/09/21 3:18:00 CDT, Weight Acetaminoph 2020-06 No 1-2 tab, Me moria en 325 MG / 0-19 PO, Q4-6H, l Hydrocodone 22:20: PRN Pain, H ermann Bitartrate 00 X 5 day, # 10 MG Oral 30 tab, 0 Tablet Refill(s), [[facility]: ] [facility], 170.18, cm, 04/09/21 3:18:00 CDT, Height, 85.4, kg, 04/09/21 3:18:00 CDT, Weight Lidocaine 2020-06 Yes 1 patch, Sherman timbo 0.04 MG/MG 0-19 TOP, Q24H, l Medicated 22:20: X 10 day, Her sheikh Patch 00 # 10 patch, 0 Refill(s), Pharmacy: [facility], 170.18, cm, 04/09/21 3:18:00 CDT, Height, 85.4, kg, 04/09/21 3:18:00 CDT, Weight Acetaminoph 2020-06 No 1-2 tab, Me moria en 325 MG / 0-19 PO, Q4-6H, l Hydrocodone 22:20: PRN Pain, H ermann Bitartrate 00 X 5 day, # 10 MG Oral 30 tab, 0 Tablet Refill(s), [[facility]: ] [facility], 170.18, cm, 04/09/21 3:18:00 CDT, Height, 85.4, kg, 04/09/21 3:18:00 CDT, Weight Lidocaine 2020-06 Yes 1 patch, Sherman timbo 0.04 MG/MG 0-19 TOP, Q24H, l Medicated 22:20: X 10 day, Her sheikh Patch 00 # 10 patch, 0 Refill(s), Pharmacy: [facility], 170.18, cm, 04/09/21 3:18:00 CDT, Height, 85.4, kg, 04/09/21 3:18:00 CDT, Weight Acetaminoph 2020-06 No 1-2 tab, Me moria en 325 MG / 0-19 PO, Q4-6H, l Hydrocodone 22:20: PRN Pain, H ermann Bitartrate 00 X 5 day, # 10 MG Oral 30 tab, 0 Tablet Refill(s), [[facility]: ] [facility], 170.18, cm, 04/09/21 3:18:00 CDT, Height, 85.4, kg, 04/09/21 3:18:00 CDT, Weight Lidocaine 2020-06 Yes 1 patch, Sherman timbo 0.04 MG/MG 0-19 TOP, Q24H, l Medicated 22:20: X 10 day, Her sheikh Patch 00 # 10 patch, 0 Refill(s), Pharmacy: [facility], 170.18, cm, 04/09/21 3:18:00 CDT, Height, 85.4, kg, 04/09/21 3:18:00 CDT, Weight Acetaminoph 2020-06 No 1-2 tab, Me moria en 325 MG / 0-19 PO, Q4-6H, l Hydrocodone 22:20: PRN Pain, H ermann Bitartrate 00 X 5 day, # 10 MG Oral 30 tab, 0 Tablet Refill(s), [[facility]: ] [facility], 170.18, cm, 04/09/21 3:18:00 CDT, Height, 85.4, kg, 04/09/21 3:18:00 CDT, Weight Lidocaine 2020-06 Yes 1 patch, Sherman timbo 0.04 MG/MG 0-19 TOP, Q24H, l Medicated 22:20: X 10 day, Her sheikh Patch 00 # 10 patch, 0 Refill(s), Pharmacy: [facility], 170.18, cm, 04/09/21 3:18:00 CDT, Height, 85.4, kg, 04/09/21 3:18:00 CDT, Weight Acetaminoph 2020-06 No 1-2 tab, Me moria en 325 MG / 0-19 PO, Q4-6H, l Hydrocodone 22:20: PRN Pain, H ermann Bitartrate 00 X 5 day, # 10 MG Oral 30 tab, 0 Tablet Refill(s), [[facility]: ] [facility], 170.18, cm, 04/09/21 3:18:00 CDT, Height, 85.4, kg, 04/09/21 3:18:00 CDT, Weight Lidocaine 2020-06 Yes 1 patch, Sherman timbo 0.04 MG/MG 0-19 TOP, Q24H, l Medicated 22:20: X 10 day, Her sheikh Patch 00 # 10 patch, 0 Refill(s), Pharmacy: [facility], 170.18, cm, 04/09/21 3:18:00 CDT, Height, 85.4, kg, 04/09/21 3:18:00 CDT, Weight Acetaminoph 2020-06 No 1-2 tab, Me moria en 325 MG / 0-19 PO, Q4-6H, l Hydrocodone 22:20: PRN Pain, H ermann Bitartrate 00 X 5 day, # 10 MG Oral 30 tab, 0 Tablet Refill(s), [[facility]: ] [facility], 170.18, cm, 04/09/21 3:18:00 CDT, Height, 85.4, kg, 04/09/21 3:18:00 CDT, Weight Lidocaine 2020-06 Yes 1 patch, Sherman timbo 0.04 MG/MG 0-19 TOP, Q24H, l Medicated 22:20: X 10 day, Her sheikh Patch 00 # 10 patch, 0 Refill(s), Pharmacy: [facility], 170.18, cm, 04/09/21 3:18:00 CDT, Height, 85.4, kg, 04/09/21 3:18:00 CDT, Weight Acetaminoph 2020-06 No 1-2 tab, Me moria en 325 MG / 0-19 PO, Q4-6H, l Hydrocodone 22:20: PRN Pain, H ermann Bitartrate 00 X 5 day, # 10 MG Oral 30 tab, 0 Tablet Refill(s), [[facility]: ] [facility], 170.18, cm, 04/09/21 3:18:00 CDT, Height, 85.4, kg, 04/09/21 3:18:00 CDT, Weight Lidocaine 2020-06 Yes 1 patch, Sherman timbo 0.04 MG/MG 0-19 TOP, Q24H, l Medicated 22:20: X 10 day, Her sheikh Patch 00 # 10 patch, 0 Refill(s), Pharmacy: [facility], 170.18, cm, 04/09/21 3:18:00 CDT, Height, 85.4, kg, 04/09/21 3:18:00 CDT, Weight Acetamino 2020-06 No 1-2 tab, Me moria en 325 MG / 0-19 PO, Q4-6H, l Hydrocodone 22:20: PRN Pain, H ermann Bitartrate 00 X 5 day, # 10 MG Oral 30 tab, 0 Tablet Refill(s), [[facility]: ] [facility], 170.18, cm, 04/09/21 3:18:00 CDT, Height, 85.4, kg, 04/09/21 3:18:00 CDT, Weight Lidocaine 2020-06 Yes 1 patch, Sherman timbo 0.04 MG/MG 0-19 TOP, Q24H, l Medicated 22:20: X 10 day, Her sheikh Patch 00 # 10 patch, 0 Refill(s), Pharmacy: [facility], 170.18, cm, 04/09/21 3:18:00 CDT, Height, 85.4, kg, 04/09/21 3:18:00 CDT, Weight Acetaminoph 2020-06 No 1-2 tab, Me moria en 325 MG / 0-19 PO, Q4-6H, l Hydrocodone 22:20: PRN Pain, H ermann Bitartrate 00 X 5 day, # 10 MG Oral 30 tab, 0 Tablet Refill(s), [[facility]: ] [facility], 170.18, cm, 04/09/21 3:18:00 CDT, Height, 85.4, kg, 04/09/21 3:18:00 CDT, Weight Lidocaine 2020-06 Yes 1 patch, Sherman timbo 0.04 MG/MG 0-19 TOP, Q24H, l Medicated 22:20: X 10 day, Her sheikh Patch 00 # 10 patch, 0 Refill(s), Pharmacy: [facility], 170.18, cm, 04/09/21 3:18:00 CDT, Height, 85.4, kg, 04/09/21 3:18:00 CDT, Weight Acetaminoph 2020-06 No 1-2 tab, Me moria en 325 MG / 0-19 PO, Q4-6H, l Hydrocodone 22:20: PRN Pain, H ermann Bitartrate 00 X 5 day, # 10 MG Oral 30 tab, 0 Tablet Refill(s), [[facility]: ] [facility], 170.18, cm, 04/09/21 3:18:00 CDT, Height, 85.4, kg, 04/09/21 3:18:00 CDT, Weight Lidocaine 2020-06 Yes 1 patch, Sherman timbo 0.04 MG/MG 0-19 TOP, Q24H, l Medicated 22:20: X 10 day, Her sheikh Patch 00 # 10 patch, 0 Refill(s), Pharmacy: [facility], 170.18, cm, 04/09/21 3:18:00 CDT, Height, 85.4, kg, 04/09/21 3:18:00 CDT, Weight Acetaminoph 2020-06 No 1-2 tab, Me moria en 325 MG / 0-19 PO, Q4-6H, l Hydrocodone 22:20: PRN Pain, H ermann Bitartrate 00 X 5 day, # 10 MG Oral 30 tab, 0 Tablet Refill(s), [[facility]: ] [facility], 170.18, cm, 04/09/21 3:18:00 CDT, Height, 85.4, kg, 04/09/21 3:18:00 CDT, Weight Lidocaine 2020-06 Yes 1 patch, Sherman timbo 0.04 MG/MG 0-19 TOP, Q24H, l Medicated 22:20: X 10 day, Her sheikh Patch 00 # 10 patch, 0 Refill(s), Pharmacy: [facility], 170.18, cm, 04/09/21 3:18:00 CDT, Height, 85.4, kg, 04/09/21 3:18:00 CDT, Weight Acetaminoph 2020-06 No 1-2 tab, Me moria en 325 MG / 0-19 PO, Q4-6H, l Hydrocodone 22:20: PRN Pain, H ermann Bitartrate 00 X 5 day, # 10 MG Oral 30 tab, 0 Tablet Refill(s), [[facility]: ] [facility], 170.18, cm, 04/09/21 3:18:00 CDT, Height, 85.4, kg, 04/09/21 3:18:00 CDT, Weight Lidocaine 2020-06 Yes 1 patch, Sherman timbo 0.04 MG/MG 0-19 TOP, Q24H, l Medicated 22:20: X 10 day, Her sheikh Patch 00 # 10 patch, 0 Refill(s), Pharmacy: [facility], 170.18, cm, 04/09/21 3:18:00 CDT, Height, 85.4, kg, 04/09/21 3:18:00 CDT, Weight Acetaminoph 2020-06 No 1-2 tab, Me moria en 325 MG / 0-19 PO, Q4-6H, l Hydrocodone 22:20: PRN Pain, H ermann Bitartrate 00 X 5 day, # 10 MG Oral 30 tab, 0 Tablet Refill(s), [[facility]: ] [facility], 170.18, cm, 04/09/21 3:18:00 CDT, Height, 85.4, kg, 04/09/21 3:18:00 CDT, Weight Lidocaine 2020-06 Yes 1 patch, Sherman timbo 0.04 MG/MG 0-19 TOP, Q24H, l Medicated 22:20: X 10 day, Her sheikh Patch 00 # 10 patch, 0 Refill(s), Pharmacy: [facility], 170.18, cm, 04/09/21 3:18:00 CDT, Height, 85.4, kg, 04/09/21 3:18:00 CDT, Weight Acetaminoph 2020-06 No 1-2 tab, Me moria en 325 MG / 0-19 PO, Q4-6H, l Hydrocodone 22:20: PRN Pain, H ermann Bitartrate 00 X 5 day, # 10 MG Oral 30 tab, 0 Tablet Refill(s), [[facility]: ] [facility], 170.18, cm, 04/09/21 3:18:00 CDT, Height, 85.4, kg, 04/09/21 3:18:00 CDT, Weight Lidocaine 2020-06 Yes 1 patch, Sherman timbo 0.04 MG/MG 0-19 TOP, Q24H, l Medicated 22:20: X 10 day, Her sehikh Patch 00 # 10 patch, 0 Refill(s), Pharmacy: [facility], 170.18, cm, 04/09/21 3:18:00 CDT, Height, 85.4, kg, 04/09/21 3:18:00 CDT, Weight Acetaminoph 2020-06 No 1-2 tab, Me moria en 325 MG / 0-19 PO, Q4-6H, l Hydrocodone 22:20: PRN Pain, H ermann Bitartrate 00 X 5 day, # 10 MG Oral 30 tab, 0 Tablet Refill(s), [[facility]: ] [facility], 170.18, cm, 04/09/21 3:18:00 CDT, Height, 85.4, kg, 04/09/21 3:18:00 CDT, Weight Lidocaine 2020-06 Yes 1 patch, Sherman timbo 0.04 MG/MG 0-19 TOP, Q24H, l Medicated 22:20: X 10 day, Her sheikh Patch 00 # 10 patch, 0 Refill(s), Pharmacy: [facility], 170.18, cm, 04/09/21 3:18:00 CDT, Height, 85.4, kg, 04/09/21 3:18:00 CDT, Weight Acetaminoph 2020-06 No 1-2 tab, Me moria en 325 MG / 0-19 PO, Q4-6H, l Hydrocodone 22:20: PRN Pain, H ermann Bitartrate 00 X 5 day, # 10 MG Oral 30 tab, 0 Tablet Refill(s), [[facility]: ] [facility], 170.18, cm, 04/09/21 3:18:00 CDT, Height, 85.4, kg, 04/09/21 3:18:00 CDT, Weight Lidocaine 2020-06 Yes 1 patch, Sherman timbo 0.04 MG/MG 0-19 TOP, Q24H, l Medicated 22:20: X 10 day, Her sheikh Patch 00 # 10 patch, 0 Refill(s), Pharmacy: [facility], 170.18, cm, 04/09/21 3:18:00 CDT, Height, 85.4, kg, 04/09/21 3:18:00 CDT, Weight Acetaminoph 2020-06 No 1-2 tab, Me moria en 325 MG / 0-19 PO, Q4-6H, l Hydrocodone 22:20: PRN Pain, H ermann Bitartrate 00 X 5 day, # 10 MG Oral 30 tab, 0 Tablet Refill(s), [[facility]: ] [facility], 170.18, cm, 04/09/21 3:18:00 CDT, Height, 85.4, kg, 04/09/21 3:18:00 CDT, Weight Lidocaine 2020-06 Yes 1 patch, Sherman timbo 0.04 MG/MG 0-19 TOP, Q24H, l Medicated 22:20: X 10 day, Her sheikh Patch 00 # 10 patch, 0 Refill(s), Pharmacy: [facility], 170.18, cm, 04/09/21 3:18:00 CDT, Height, 85.4, kg, 04/09/21 3:18:00 CDT, Weight Acetaminoph 2020-06 No 1-2 tab, Me moria en 325 MG / 0-19 PO, Q4-6H, l Hydrocodone 22:20: PRN Pain, H ermann Bitartrate 00 X 5 day, # 10 MG Oral 30 tab, 0 Tablet Refill(s), [[facility]: ] [facility], 170.18, cm, 04/09/21 3:18:00 CDT, Height, 85.4, kg, 04/09/21 3:18:00 CDT, Weight Lidocaine 2020-06 Yes 1 patch, Sherman timbo 0.04 MG/MG 0-19 TOP, Q24H, l Medicated 22:20: X 10 day, Her sheikh Patch 00 # 10 patch, 0 Refill(s), Pharmacy: [facility], 170.18, cm, 04/09/21 3:18:00 CDT, Height, 85.4, kg, 04/09/21 3:18:00 CDT, Weight Acetaminoph 2020-06 No 1-2 tab, Me moria en 325 MG / 0-19 PO, Q4-6H, l Hydrocodone 22:20: PRN Pain, H ermann Bitartrate 00 X 5 day, # 10 MG Oral 30 tab, 0 Tablet Refill(s), [[facility]: ] [facility], 170.18, cm, 04/09/21 3:18:00 CDT, Height, 85.4, kg, 04/09/21 3:18:00 CDT, Weight Lidocaine 2020-06 Yes 1 patch, Sherman timbo 0.04 MG/MG 0-19 TOP, Q24H, l Medicated 22:20: X 10 day, Her sheikh Patch 00 # 10 patch, 0 Refill(s), Pharmacy: [facility], 170.18, cm, 04/09/21 3:18:00 CDT, Height, 85.4, kg, 04/09/21 3:18:00 CDT, Weight Acetaminoph 2020-06 No 1-2 tab, Me moria en 325 MG / 0-19 PO, Q4-6H, l Hydrocodone 22:20: PRN Pain, H ermann Bitartrate 00 X 5 day, # 10 MG Oral 30 tab, 0 Tablet Refill(s), [[facility]: ] [facility], 170.18, cm, 04/09/21 3:18:00 CDT, Height, 85.4, kg, 04/09/21 3:18:00 CDT, Weight Lidocaine 2020-06 Yes 1 patch, Sherman timbo 0.04 MG/MG 0-19 TOP, Q24H, l Medicated 22:20: X 10 day, Her sheikh Patch 00 # 10 patch, 0 Refill(s), Pharmacy: [facility], 170.18, cm, 04/09/21 3:18:00 CDT, Height, 85.4, kg, 04/09/21 3:18:00 CDT, Weight Acetaminoph 2020-06 No 1-2 tab, Me moria en 325 MG / 0-19 PO, Q4-6H, l Hydrocodone 22:20: PRN Pain, H ermann Bitartrate 00 X 5 day, # 10 MG Oral 30 tab, 0 Tablet Refill(s), [[facility]: ] [facility], 170.18, cm, 04/09/21 3:18:00 CDT, Height, 85.4, kg, 04/09/21 3:18:00 CDT, Weight Lidocaine 2020-06 Yes 1 patch, Sherman timbo 0.04 MG/MG 0-19 TOP, Q24H, l Medicated 22:20: X 10 day, Her sheikh Patch 00 # 10 patch, 0 Refill(s), Pharmacy: [facility], 170.18, cm, 04/09/21 3:18:00 CDT, Height, 85.4, kg, 04/09/21 3:18:00 CDT, Weight Acetaminoph 2020-06 No 1-2 tab, Me moria en 325 MG / 0-19 PO, Q4-6H, l Hydrocodone 22:20: PRN Pain, H ermann Bitartrate 00 X 5 day, # 10 MG Oral 30 tab, 0 Tablet Refill(s), [[facility]: ] [facility], 170.18, cm, 04/09/21 3:18:00 CDT, Height, 85.4, kg, 04/09/21 3:18:00 CDT, Weight Lidocaine 2020-06 Yes 1 patch, Sherman timbo 0.04 MG/MG 0-19 TOP, Q24H, l Medicated 22:20: X 10 day, Her sheikh Patch 00 # 10 patch, 0 Refill(s), Pharmacy: [facility], 170.18, cm, 04/09/21 3:18:00 CDT, Height, 85.4, kg, 04/09/21 3:18:00 CDT, Weight Acetaminoph 2020-06 No 1-2 tab, Me moria en 325 MG / 0-19 PO, Q4-6H, l Hydrocodone 22:20: PRN Pain, H ermann Bitartrate 00 X 5 day, # 10 MG Oral 30 tab, 0 Tablet Refill(s), [[facility]: ] [facility], 170.18, cm, 04/09/21 3:18:00 CDT, Height, 85.4, kg, 04/09/21 3:18:00 CDT, Weight Lidocaine 2020-06 Yes 1 patch, Sherman timbo 0.04 MG/MG 0-19 TOP, Q24H, l Medicated 22:20: X 10 day, Her sheikh Patch 00 # 10 patch, 0 Refill(s), Pharmacy: [facility], 170.18, cm, 04/09/21 3:18:00 CDT, Height, 85.4, kg, 04/09/21 3:18:00 CDT, Weight Acetaminoph 2020-06 No 1-2 tab, Me moria en 325 MG / 0-19 PO, Q4-6H, l Hydrocodone 22:20: PRN Pain, H ermann Bitartrate 00 X 5 day, # 10 MG Oral 30 tab, 0 Tablet Refill(s), [[facility]: ] [facility], 170.18, cm, 04/09/21 3:18:00 CDT, Height, 85.4, kg, 04/09/21 3:18:00 CDT, Weight Lidocaine 2020-06 Yes 1 patch, Sherman timbo 0.04 MG/MG 0-19 TOP, Q24H, l Medicated 22:20: X 10 day, Her sheikh Patch 00 # 10 patch, 0 Refill(s), Pharmacy: [facility], 170.18, cm, 04/09/21 3:18:00 CDT, Height, 85.4, kg, 04/09/21 3:18:00 CDT, Weight Acetaminoph 2020-06 No 1-2 tab, Me moria en 325 MG / 0-19 PO, Q4-6H, l Hydrocodone 22:20: PRN Pain, H ermann Bitartrate 00 X 5 day, # 10 MG Oral 30 tab, 0 Tablet Refill(s), [[facility]: ] [facility], 170.18, cm, 04/09/21 3:18:00 CDT, Height, 85.4, kg, 04/09/21 3:18:00 CDT, Weight Lidocaine 2020-06 Yes 1 patch, Sherman timbo 0.04 MG/MG 0-19 TOP, Q24H, l Medicated 22:20: X 10 day, Her sheikh Patch 00 # 10 patch, 0 Refill(s), Pharmacy: [facility], 170.18, cm, 04/09/21 3:18:00 CDT, Height, 85.4, kg, 04/09/21 3:18:00 CDT, Weight Acetaminoph 2020-06 No 1-2 tab, Me moria en 325 MG / 0-19 PO, Q4-6H, l Hydrocodone 22:20: PRN Pain, H ermann Bitartrate 00 X 5 day, # 10 MG Oral 30 tab, 0 Tablet Refill(s), [[facility]: ] [facility], 170.18, cm, 04/09/21 3:18:00 CDT, Height, 85.4, kg, 04/09/21 3:18:00 CDT, Weight Lidocaine 2020-06 Yes 1 patch, Sherman timbo 0.04 MG/MG 0-19 TOP, Q24H, l Medicated 22:20: X 10 day, Her sheikh Patch 00 # 10 patch, 0 Refill(s), Pharmacy: [facility], 170.18, cm, 04/09/21 3:18:00 CDT, Height, 85.4, kg, 04/09/21 3:18:00 CDT, Weight Acetaminoph 2020-06 No 1-2 tab, Me moria en 325 MG / 0-19 PO, Q4-6H, l Hydrocodone 22:20: PRN Pain, H ermann Bitartrate 00 X 5 day, # 10 MG Oral 30 tab, 0 Tablet Refill(s), [[facility]: ] [facility], 170.18, cm, 04/09/21 3:18:00 CDT, Height, 85.4, kg, 04/09/21 3:18:00 CDT, Weight Lidocaine 2020-06 Yes 1 patch, Sherman timbo 0.04 MG/MG 0-19 TOP, Q24H, l Medicated 22:20: X 10 day, Her sheikh Patch 00 # 10 patch, 0 Refill(s), Pharmacy: [facility], 170.18, cm, 04/09/21 3:18:00 CDT, Height, 85.4, kg, 04/09/21 3:18:00 CDT, Weight Acetaminoph 2020-06 No 1-2 tab, Me moria en 325 MG / 0-19 PO, Q4-6H, l Hydrocodone 22:20: PRN Pain, H ermann Bitartrate 00 X 5 day, # 10 MG Oral 30 tab, 0 Tablet Refill(s), [[facility]: ] [facility], 170.18, cm, 04/09/21 3:18:00 CDT, Height, 85.4, kg, 04/09/21 3:18:00 CDT, Weight Lidocaine 2020-06 Yes 1 patch, Sherman timbo 0.04 MG/MG 0-19 TOP, Q24H, l Medicated 22:20: X 10 day, Her sheikh Patch 00 # 10 patch, 0 Refill(s), Pharmacy: [facility], 170.18, cm, 04/09/21 3:18:00 CDT, Height, 85.4, kg, 04/09/21 3:18:00 CDT, Weight Acetaminoph 2020-06 No 1-2 tab, Me moria en 325 MG / 0-19 PO, Q4-6H, l Hydrocodone 22:20: PRN Pain, H ermann Bitartrate 00 X 5 day, # 10 MG Oral 30 tab, 0 Tablet Refill(s), [[facility]: ] [facility], 170.18, cm, 04/09/21 3:18:00 CDT, Height, 85.4, kg, 04/09/21 3:18:00 CDT, Weight Lidocaine 2020-06 Yes 1 patch, Sherman timbo 0.04 MG/MG 0-19 TOP, Q24H, l Medicated 22:20: X 10 day, Her sheikh Patch 00 # 10 patch, 0 Refill(s), Pharmacy: [facility], 170.18, cm, 04/09/21 3:18:00 CDT, Height, 85.4, kg, 04/09/21 3:18:00 CDT, Weight Acetaminoph 2020-06 No 1-2 tab, Me moria en 325 MG / 0-19 PO, Q4-6H, l Hydrocodone 22:20: PRN Pain, H ermann Bitartrate 00 X 5 day, # 10 MG Oral 30 tab, 0 Tablet Refill(s), [[facility]: ] [facility], 170.18, cm, 04/09/21 3:18:00 CDT, Height, 85.4, kg, 04/09/21 3:18:00 CDT, Weight Lidocaine 2020-06 Yes 1 patch, Sherman timbo 0.04 MG/MG 0-19 TOP, Q24H, l Medicated 22:20: X 10 day, Her sheikh Patch 00 # 10 patch, 0 Refill(s), Pharmacy: [facility], 170.18, cm, 04/09/21 3:18:00 CDT, Height, 85.4, kg, 04/09/21 3:18:00 CDT, Weight Acetaminoph 2020-06 No 1-2 tab, Me moria en 325 MG / 0-19 PO, Q4-6H, l Hydrocodone 22:20: PRN Pain, H ermann Bitartrate 00 X 5 day, # 10 MG Oral 30 tab, 0 Tablet Refill(s), [[facility]: ] [facility], 170.18, cm, 04/09/21 3:18:00 CDT, Height, 85.4, kg, 04/09/21 3:18:00 CDT, Weight Lidocaine 2020-06 Yes 1 patch, Sherman timbo 0.04 MG/MG 0-19 TOP, Q24H, l Medicated 22:20: X 10 day, Her sheikh Patch 00 # 10 patch, 0 Refill(s), Pharmacy: [facility], 170.18, cm, 04/09/21 3:18:00 CDT, Height, 85.4, kg, 04/09/21 3:18:00 CDT, Weight Acetaminoph 2020-06 No 1-2 tab, Me moria en 325 MG / 0-19 PO, Q4-6H, l Hydrocodone 22:20: PRN Pain, H ermann Bitartrate 00 X 5 day, # 10 MG Oral 30 tab, 0 Tablet Refill(s), [[facility]: ] [facility], 170.18, cm, 04/09/21 3:18:00 CDT, Height, 85.4, kg, 04/09/21 3:18:00 CDT, Weight Lidocaine 2020-06 Yes 1 patch, Sherman timbo 0.04 MG/MG 0-19 TOP, Q24H, l Medicated 22:20: X 10 day, Her sheikh Patch 00 # 10 patch, 0 Refill(s), Pharmacy: [facility], 170.18, cm, 04/09/21 3:18:00 CDT, Height, 85.4, kg, 04/09/21 3:18:00 CDT, Weight Acetaminoph 2020-06 No 1-2 tab, Me moria en 325 MG / 0-19 PO, Q4-6H, l Hydrocodone 22:20: PRN Pain, H ermann Bitartrate 00 X 5 day, # 10 MG Oral 30 tab, 0 Tablet Refill(s), [[facility]: ] [facility], 170.18, cm, 04/09/21 3:18:00 CDT, Height, 85.4, kg, 04/09/21 3:18:00 CDT, Weight Lidocaine 2020-06 Yes 1 patch, Sherman timbo 0.04 MG/MG 0-19 TOP, Q24H, l Medicated 22:20: X 10 day, Her sheikh Patch 00 # 10 patch, 0 Refill(s), Pharmacy: [facility], 170.18, cm, 04/09/21 3:18:00 CDT, Height, 85.4, kg, 04/09/21 3:18:00 CDT, Weight Acetaminoph 2020-06 No 1-2 tab, Me moria en 325 MG / 0-19 PO, Q4-6H, l Hydrocodone 22:20: PRN Pain, H ermann Bitartrate 00 X 5 day, # 10 MG Oral 30 tab, 0 Tablet Refill(s), [[facility]: ] [facility], 170.18, cm, 04/09/21 3:18:00 CDT, Height, 85.4, kg, 04/09/21 3:18:00 CDT, Weight Lidocaine 2020-06 Yes 1 patch, Sherman timbo 0.04 MG/MG 0-19 TOP, Q24H, l Medicated 22:20: X 10 day, Her sheikh Patch 00 # 10 patch, 0 Refill(s), Pharmacy: [facility], 170.18, cm, 04/09/21 3:18:00 CDT, Height, 85.4, kg, 04/09/21 3:18:00 CDT, Weight Acetaminoph 2020-06 No 1-2 tab, Me moria en 325 MG / 0-19 PO, Q4-6H, l Hydrocodone 22:20: PRN Pain, H ermann Bitartrate 00 X 5 day, # 10 MG Oral 30 tab, 0 Tablet Refill(s), [[facility]: ] [facility], 170.18, cm, 04/09/21 3:18:00 CDT, Height, 85.4, kg, 04/09/21 3:18:00 CDT, Weight Lidocaine 2020-06 Yes 1 patch, Sherman timbo 0.04 MG/MG 0-19 TOP, Q24H, l Medicated 22:20: X 10 day, Her sheikh Patch 00 # 10 patch, 0 Refill(s), Pharmacy: [facility], 170.18, cm, 04/09/21 3:18:00 CDT, Height, 85.4, kg, 04/09/21 3:18:00 CDT, Weight Acetaminoph 2020-06 No 1-2 tab, Me moria en 325 MG / 0-19 PO, Q4-6H, l Hydrocodone 22:20: PRN Pain, H ermann Bitartrate 00 X 5 day, # 10 MG Oral 30 tab, 0 Tablet Refill(s), [[facility]: ] [facility], 170.18, cm, 04/09/21 3:18:00 CDT, Height, 85.4, kg, 04/09/21 3:18:00 CDT, Weight Cholecalcif 2020-06 No Notes: Sherman timbo enssa 0-19 Same as : l 14:00: Vitamin D3 Ran Cholecalcif 2020-06 No Notes: Sherman timbo nessa 0-19 Same as : l 14:00: Vitamin D3 [place] 00 Cholecalcif 2020-06 No Notes: Sherman timbo nsesa 0-19 Same as : l 14:00: Vitamin D3 Ran Cholecalcif 2020-06 No Notes: Sherman timbo nessa 0-19 Same as : l 14:00: Vitamin D3 [place] 00 Cholecalcif 2020-06 No Notes: Sherman timbo nessa 0-19 Same as : l 14:00: Vitamin D3 [place] 00 Cholecalcif 2020-06 No Notes: Sherman timbo nessa 0-19 Same as : l 14:00: Vitamin D3 [place] 00 Cholecalcif 2020-06 No Notes: Sherman timbo nessa 0-19 Same as : l 14:00: Vitamin D3 [place] 00 Cholecalcif 2020-06 No Notes: Sherman timbo nessa 0-19 Same as : l 14:00: Vitamin D3 [place] 00 Cholecalcif 2020-06 No Notes: Sherman timbo nessa 0-19 Same as : l 14:00: Vitamin D3 [place] 00 Cholecalcif 2020-06 No Notes: Sherman timbo nessa 0-19 Same as : l 14:00: Vitamin D3 [place] 00 Cholecalcif 2020-06 No Notes: Sherman timbo nessa 0-19 Same as : l 14:00: Vitamin D3 [place] 00 Cholecalcif 2020-06 No Notes: Sherman timbo nessa 0-19 Same as : l 14:00: Vitamin D3 Cholecalcif 2020-06 No Notes: Sherman timbo nessa 0-19 Same as : l 14:00: Vitamin D3 [place] 00 Cholecalcif 2020-06 No Notes: Sherman timbo nessa 0-19 Same as : l 14:00: Vitamin D3 Cholecalcif 2020-06 No Notes: Sherman timbo nessa 0-19 Same as : l 14:00: Vitamin D3 Cholecalcif 2020-06 No Notes: Sherman timbo nessa 0-19 Same as : l 14:00: Vitamin D3 Cholecalcif 2020-06 No Notes: Sherman timbo nessa 0-19 Same as : l 14:00: Vitamin D3 Cholecalcif 2020-06 No Notes: Sherman timbo nessa 0-19 Same as : l 14:00: Vitamin D3 Cholecalcif 2020-06 No Notes: Sherman timbo nessa 0-19 Same as : l 14:00: Vitamin D3 Cholecalcif 2020-06 No Notes: Sherman timbo nessa 0-19 Same as : l 14:00: Vitamin D3 Ran 00 Cholecalcif 2020-06 No Notes: Sherman timbo nessa 0-19 Same as : l 14:00: Vitamin D3 [place] 00 Cholecalcif 2020-06 No Notes: [place] timbo nessa 0-19 Same as : l 14:00: Vitamin D3 Ran 00 Cholecalcif 2020-06 No Notes: [place] timbo nessa 0-19 Same as : l 14:00: Vitamin D3 [place] 00 Cholecalcif 2020-06 No Notes: Sherman timbo nessa 0-19 Same as : l 14:00: Vitamin D3 Ran 00 Cholecalcif 2020-06 No Notes: Sherman timbo nessa 0-19 Same as : l 14:00: Vitamin D3 Cholecalcif 2020-06 No Notes: Sherman timbo nessa 0-19 Same as : l 14:00: Vitamin D3 Cholecalcif 2020-06 No Notes: Sherman timbo nessa 0-19 Same as : l 14:00: Vitamin D3 Cholecalcif 2020-06 No Notes: Sherman timbo nessa 0-19 Same as : l 14:00: Vitamin D3 Cholecalcif 2020-06 No Notes: Sherman timbo nessa 0-19 Same as : l 14:00: Vitamin D3 Cholecalcif 2020-06 No Notes: Sherman timbo nessa 0-19 Same as : l 14:00: Vitamin D3 Cholecalcif 2020-06 No Notes: Sherman timbo nessa 0-19 Same as : l 14:00: Vitamin D3 Cholecalcif 2020-06 No Notes: Sherman timbo nessa 0-19 Same as : l 14:00: Vitamin D3 Cholecalcif 2020-06 No Notes: Sherman timbo nessa 0-19 Same as : l 14:00: Vitamin D3 Cholecalcif 2020-06 No Notes: Sherman timbo nessa 0-19 Same as : l 14:00: Vitamin D3 Cholecalcif 2020-06 No Notes: Sherman timbo nessa 0-19 Same as : l 14:00: Vitamin D3 Cholecalcif 2020-06 No Notes: Sherman timbo nessa 0-19 Same as : l 14:00: Vitamin D3 Cholecalcif 2020-06 No Notes: Sherman timbo nessa 0-19 Same as : l 14:00: Vitamin D3 Cholecalcif 2020-06 No Notes: Sherman timbo nessa 0-19 Same as : l 14:00: Vitamin D3 Cholecalcif 2020-06 No Notes: Sherman timbo nessa 0-19 Same as : l 14:00: Vitamin D3 Cholecalcif 2020-06 No Notes: Sherman timbo nessa 0-19 Same as : l 14:00: Vitamin D3 [place] 00 Ergocalcife 2020-06 No Notes: Sherman timbo rol [id number] 0-19 (Same as: l UNT Oral 13:59: Vitamin D) Her sheikh Capsule 00 "Do Not Crush" Ergocalcife 2020-06 No Notes: Sherman timbo rol [id number] 0-19 (Same as: l UNT Oral 13:59: Vitamin D) Her sheikh Capsule 00 "Do Not Crush" Ergocalcife 2020-06 No Notes: Sherman timbo rol [id number] 0-19 (Same as: l UNT Oral 13:59: Vitamin D) Her sheikh Capsule 00 "Do Not Crush" Ergocalcife 2020-06 No Notes: Sherman timbo rol [id number] 0-19 (Same as: l UNT Oral 13:59: Vitamin D) Her sheikh Capsule 00 "Do Not Crush" Ergocalcife 2020-06 No Notes: Sherman timbo rol [id number] 0-19 (Same as: l UNT Oral 13:59: Vitamin D) Her sheikh Capsule 00 "Do Not Crush" Ergocalcife 2020-06 No Notes: Sherman timbo rol [id number] 0-19 (Same as: l UNT Oral 13:59: Vitamin D) Her sheikh Capsule 00 "Do Not Crush" Ergocalcife 2020-06 No Notes: Sherman timbo rol [id number] 0-19 (Same as: l UNT Oral 13:59: Vitamin D) Her sheikh Capsule 00 "Do Not Crush" Ergocalcife 2020-06 No Notes: Sherman timbo rol [id number] 0-19 (Same as: l UNT Oral 13:59: Vitamin D) Her sheikh Capsule 00 "Do Not Crush" Ergocalcife 2020-06 No Notes: Sherman timbo rol [id number] 0-19 (Same as: l UNT Oral 13:59: Vitamin D) Her she[facility] Capsule 00 "Do Not Crush" Ergocalcife 2020-06 No Notes: Sherman timbo rol [id number] 0-19 (Same as: l UNT Oral 13:59: Vitamin D) Her sheikh Capsule 00 "Do Not Crush" Ergocalcife 2020-06 No Notes: Sherman timbo rol [id number] 0-19 (Same as: l UNT Oral 13:59: Vitamin D) Her sheikh Capsule 00 "Do Not Crush" Ergocalcife 2020-06 No Notes: Sherman timbo rol [id number] 0-19 (Same as: l UNT Oral 13:59: Vitamin D) Her sheikh Capsule 00 "Do Not Crush" Ergocalcife 2020-06 No Notes: Sherman timbo rol [id number] 0-19 (Same as: l UNT Oral 13:59: Vitamin D) Her sheikh Capsule 00 "Do Not Crush" Ergocalcife 2020-06 No Notes: Sherman timbo rol [id number] 0-19 (Same as: l UNT Oral 13:59: Vitamin D) Her sheikh Capsule 00 "Do Not Crush" Ergocalcife 2020-06 No Notes: Sherman timbo rol [id number] 0-19 (Same as: l UNT Oral 13:59: Vitamin D) Her sheikh Capsule 00 "Do Not Crush" Ergocalcife 2020-06 No Notes: Sherman timbo rol [id number] 0-19 (Same as: l UNT Oral 13:59: Vitamin D) Her sheikh Capsule 00 "Do Not Crush" Ergocalcife 2020-06 No Notes: Sherman timbo rol [id number] 0-19 (Same as: l UNT Oral 13:59: Vitamin D) Her sheikh Capsule 00 "Do Not Crush" Ergocalcife 2020-06 No Notes: Sherman timbo rol [id number] 0-19 (Same as: l UNT Oral 13:59: Vitamin D) Her sheikh Capsule 00 "Do Not Crush" Ergocalcife 2020-06 No Notes: Sherman timbo rol [id number] 0-19 (Same as: l UNT Oral 13:59: Vitamin D) Her sheikh Capsule 00 "Do Not Crush" Ergocalcife 2020-06 No Notes: Sherman timbo rol [id number] 0-19 (Same as: l UNT Oral 13:59: Vitamin D) Her sheikh Capsule 00 "Do Not Crush" Ergocalcife 2020-06 No Notes: Sherman timbo rol [id number] 0-19 (Same as: l UNT Oral 13:59: Vitamin D) Her sheikh Capsule 00 "Do Not Crush" Ergocalcife 2020-06 No Notes: Sherman timbo rol [id number] 0-19 (Same as: l UNT Oral 13:59: Vitamin D) Her sheikh Capsule 00 "Do Not Crush" Ergocalcife 2020-06 No Notes: Sherman timbo rol [id number] 0-19 (Same as: l UNT Oral 13:59: Vitamin D) Her sheikh Capsule 00 "Do Not Crush" Ergocalcife 2020-06 No Notes: Sherman timbo rol [id number] 0-19 (Same as: l UNT Oral 13:59: Vitamin D) Her sheikh Capsule 00 "Do Not Crush" Ergocalcife 2020-06 No Notes: Sherman timbo rol [id number] 0-19 (Same as: l UNT Oral 13:59: Vitamin D) Her sheikh Capsule 00 "Do Not Crush" Ergocalcife 2020-06 No Notes: Sherman timbo rol [id number] 0-19 (Same as: l UNT Oral 13:59: Vitamin D) Her sheikh Capsule 00 "Do Not Crush" Ergocalcife 2020-06 No Notes: Sherman timbo rol [id number] 0-19 (Same as: l UNT Oral 13:59: Vitamin D) Her sheikh Capsule 00 "Do Not Crush" Ergocalcife 2020-06 No Notes: Sherman timbo rol [id number] 0-19 (Same as: l UNT Oral 13:59: Vitamin D) Her sheikh Capsule 00 "Do Not Crush" Ergocalcife 2020-06 No Notes: Sherman timbo rol [id number] 0-19 (Same as: l UNT Oral 13:59: Vitamin D) Her sheikh Capsule 00 "Do Not Crush" Ergocalcife 2020-06 No Notes: Sherman timbo rol [id number] 0-19 (Same as: l UNT Oral 13:59: Vitamin D) Her sheikh Capsule 00 "Do Not Crush" Ergocalcife 2020-06 No Notes: Sherman timbo rol [id number] 0-19 (Same as: l UNT Oral 13:59: Vitamin D) Her sheikh Capsule 00 "Do Not Crush" Ergocalcife 2020-06 No Notes: Sherman timbo rol [id number] 0-19 (Same as: l UNT Oral 13:59: Vitamin D) Her sheikh Capsule 00 "Do Not Crush" Ergocalcife 2020-06 No Notes: Sherman timbo rol [id number] 0-19 (Same as: l UNT Oral 13:59: Vitamin D) Her sheikh Capsule 00 "Do Not Crush" Ergocalcife 2020-06 No Notes: Sherman timbo rol [id number] 0-19 (Same as: l UNT Oral 13:59: Vitamin D) Her sheikh Capsule 00 "Do Not Crush" Ergocalcife 2020-06 No Notes: Sherman timbo rol [id number] 0-19 (Same as: l UNT Oral 13:59: Vitamin D) Her sheikh Capsule 00 "Do Not Crush" Ergocalcife 2020-06 No Notes: Sherman timbo rol [id number] 0-19 (Same as: l UNT Oral 13:59: Vitamin D) Her sheikh Capsule 00 "Do Not Crush" Ergocalcife 2020-06 No Notes: Sherman timbo rol [id number] 0-19 (Same as: l UNT Oral 13:59: Vitamin D) Her sheikh Capsule 00 "Do Not Crush" Ergocalcife 2020-06 No Notes: Sherman timbo rol [id number] 0-19 (Same as: l UNT Oral 13:59: Vitamin D) Her sheikh Capsule 00 "Do Not Crush" Ergocalcife 2020-06 No Notes: Sherman timbo rol [id number] 0-19 (Same as: l UNT Oral 13:59: Vitamin D) Her sheikh Capsule 00 "Do Not Crush" Ergocalcife 2020-06 No Notes: Sherman timbo rol [id number] 0-19 (Same as: l UNT Oral 13:59: Vitamin D) Her sheikh Capsule 00 "Do Not Crush" Cefazolin 2020-06 No Notes: Memori a 0-19 (Same As: l 05:00: Ancef, [place] 00 Kefzol) MEDICATION WASTE Product Size: 1000 mg Product Wasted: ___ mg Cefazolin 2020-06 No Notes: Memori a 0-19 (Same As: l 05:00: Ancef, [place] 00 Kefzol) MEDICATION WASTE Product Size: 1000 mg Product Wasted: ___ mg Cefazolin 2020-06 No Notes: Memori a 0-19 (Same As: l 05:00: Ancef, [place] 00 Kefzol) MEDICATION WASTE Product Size: 1000 mg Product Wasted: ___ mg Cefazolin 2020-06 No Notes: Memori a 0-19 (Same As: l 05:00: Ancef, [place] 00 Kefzol) MEDICATION WASTE Product Size: 1000 mg Product Wasted: ___ mg Cefazolin 2020- No Notes: Memori a 0-19 (Same As: l 05:00: Ancef, [place] 00 Kefzol) MEDICATION WASTE Product Size: 1000 mg Product Wasted: ___ mg Cefazolin 2021-1 No Notes: Memori a 0-19 (Same As: l 05:00: Ancef, [place] 00 Kefzol) MEDICATION WASTE Product Size: 1000 mg Product Wasted: ___ mg Cefazolin 2021-1 No Notes: Memori a 0-19 (Same As: l 05:00: Ancef, [place] 00 Kefzol) MEDICATION WASTE Product Size: 1000 mg Product Wasted: ___ mg Cefazolin 2021-1 No Notes: Memori a 0-19 (Same As: l 05:00: Ancef, [place] 00 Kefzol) MEDICATION WASTE Product Size: 1000 mg Product Wasted: ___ mg Cefazolin 2021-1 No Notes: Memori a 0-19 (Same As: l 05:00: Ancef, [place] 00 Kefzol) MEDICATION WASTE Product Size: 1000 mg Product Wasted: ___ mg Cefazolin 2021-1 No Notes: Memori a 0-19 (Same As: l 05:00: Ancef, [place] 00 Kefzol) MEDICATION WASTE Product Size: 1000 mg Product Wasted: ___ mg Cefazolin 2021-1 No Notes: Memori a 0-19 (Same As: l 05:00: Ancef, [place] 00 Kefzol) MEDICATION WASTE Product Size: 1000 mg Product Wasted: ___ mg Cefazolin 2021-1 No Notes: Memori a 0-19 (Same As: l 05:00: Ancef, [place] 00 Kefzol) MEDICATION WASTE Product Size: 1000 mg Product Wasted: ___ mg Cefazolin 2021-1 No Notes: Memori a 0-19 (Same As: l 05:00: Ancef, [place] 00 Kefzol) MEDICATION WASTE Product Size: 1000 mg Product Wasted: ___ mg Cefazolin 2021-1 No Notes: Memori a 0-19 (Same As: l 05:00: Ancef, [place] 00 Kefzol) MEDICATION WASTE Product Size: 1000 mg Product Wasted: ___ mg Cefazolin 1-1 No Notes: Memori a 0-19 (Same As: l 05:00: Ancef, [place] 00 Kefzol) MEDICATION WASTE Product Size: 1000 mg Product Wasted: ___ mg Cefazolin 1-1 No Notes: Memori a 0-19 (Same As: l 05:00: Ancef, [place] 00 Kefzol) MEDICATION WASTE Product Size: 1000 mg Product Wasted: ___ mg Cefazolin 1- No Notes: Memori a 0-19 (Same As: l 05:00: Ancef, [place] 00 Kefzol) MEDICATION WASTE Product Size: 1000 mg Product Wasted: ___ mg Cefazolin 1- No Notes: Memori a 0-19 (Same As: l 05:00: Ancef, [place] 00 Kefzol) MEDICATION WASTE Product Size: 1000 mg Product Wasted: ___ mg Cefazolin 1-1 No Notes: Memori a 0-19 (Same As: l 05:00: Ancef, [place] 00 Kefzol) MEDICATION WASTE Product Size: 1000 mg Product Wasted: ___ mg Cefazolin 1-1 No Notes: Memori a 0-19 (Same As: l 05:00: Ancef, [place] 00 Kefzol) MEDICATION WASTE Product Size: 1000 mg Product Wasted: ___ mg Cefazolin 1-1 No Notes: Memori a 0-19 (Same As: l 05:00: Ancef, [place] 00 Kefzol) MEDICATION WASTE Product Size: 1000 mg Product Wasted: ___ mg Cefazolin 1-1 No Notes: Memori a 0-19 (Same As: l 05:00: Ancef, [place] 00 Kefzol) MEDICATION WASTE Product Size: 1000 mg Product Wasted: ___ mg Cefazolin 2021-1 No Notes: Memori a 0-19 (Same As: l 05:00: Ancef, [place] 00 Kefzol) MEDICATION WASTE Product Size: 1000 mg Product Wasted: ___ mg Cefazolin 2021-1 No Notes: Memori a 0-19 (Same As: l 05:00: Ancef, [place] 00 Kefzol) MEDICATION WASTE Product Size: 1000 mg Product Wasted: ___ mg Cefazolin 1-1 No Notes: Memori a 0-19 (Same As: l 05:00: Ancef, [place] 00 Kefzol) MEDICATION WASTE Product Size: 1000 mg Product Wasted: ___ mg Cefazolin 2021-1 No Notes: Memori a 0-19 (Same As: l 05:00: Ancef, [place] 00 Kefzol) MEDICATION WASTE Product Size: 1000 mg Product Wasted: ___ mg Cefazolin 1-1 No Notes: Memori a 0-19 (Same As: l 05:00: Ancef, [place] 00 Kefzol) MEDICATION WASTE Product Size: 1000 mg Product Wasted: ___ mg Cefazolin 1-1 No Notes: Memori a 0-19 (Same As: l 05:00: Ancef, [place] 00 Kefzol) MEDICATION WASTE Product Size: 1000 mg Product Wasted: ___ mg Cefazolin 1-1 No Notes: Memori a 0-19 (Same As: l 05:00: Ancef, [place] 00 Kefzol) MEDICATION WASTE Product Size: 1000 mg Product Wasted: ___ mg Cefazolin 1-1 No Notes: Memori a 0-19 (Same As: l 05:00: Ancef, [place] 00 Kefzol) MEDICATION WASTE Product Size: 1000 mg Product Wasted: ___ mg Cefazolin 1-1 No Notes: Memori a 0-19 (Same As: l 05:00: Ancef, [place] 00 Kefzol) MEDICATION WASTE Product Size: 1000 mg Product Wasted: ___ mg Cefazolin 2021-1 No Notes: Memori a 0-19 (Same As: l 05:00: Ancef, [place] 00 Kefzol) MEDICATION WASTE Product Size: 1000 mg Product Wasted: ___ mg Cefazolin 2021-1 No Notes: Memori a 0-19 (Same As: l 05:00: Ancef, [place] 00 Kefzol) MEDICATION WASTE Product Size: 1000 mg Product Wasted: ___ mg Cefazolin 2021-1 No Notes: Memori a 0-19 (Same As: l 05:00: Ancef, [place] 00 Kefzol) MEDICATION WASTE Product Size: 1000 mg Product Wasted: ___ mg Cefazolin 2021-1 No Notes: Memori a 0-19 (Same As: l 05:00: Ancef, [place] 00 Kefzol) MEDICATION WASTE Product Size: 1000 mg Product Wasted: ___ mg Cefazolin 2021-1 No Notes: Memori a 0-19 (Same As: l 05:00: Ancef, [place] 00 Kefzol) MEDICATION WASTE Product Size: 1000 mg Product Wasted: ___ mg Cefazolin 2021-1 No Notes: Memori a 0-19 (Same As: l 05:00: Ancef, [place] 00 Kefzol) MEDICATION WASTE Product Size: 1000 mg Product Wasted: ___ mg Cefazolin 2021-1 No Notes: Memori a 0-19 (Same As: l 05:00: Ancef, [place] 00 Kefzol) MEDICATION WASTE Product Size: 1000 mg Product Wasted: ___ mg Cefazolin 2021-1 No Notes: Memori a 0-19 (Same As: l 05:00: Ancef, [place] 00 Kefzol) MEDICATION WASTE Product Size: 1000 mg Product Wasted: ___ mg Cefazolin 2021-1 No Notes: Memori a 0-19 (Same As: l 05:00: [place] Kefzol) MEDICATION WASTE Product Size: 1000 mg Product Wasted: ___ mg Calcium 2020-06 No Notes: Memoria Carbonate 0- (Same As: l 02:00: Tums) Calcium Carbonate 500 mg = 200 mg elemental calcium Dose = mg calcium carbonate ( mg elemental calcium) Calcium 2020-06 No Notes: Mem[facility] Carbonate 0- (Same As: l 02:00: Tums) Calcium Carbonate 500 mg = 200 mg elemental calcium Dose = mg calcium carbonate ( mg elemental calcium) Calcium 2020-06 No Notes: Memoria Carbonate 0 (Same As: l 02:00: Tums) Calcium Carbonate 500 mg = 200 mg elemental calcium Dose = mg calcium carbonate ( mg elemental calcium) Calcium 2020-06 No Notes: [facility] Carbonate 0- (Same As: l 02:00: Tums) Calcium Carbonate 500 mg = 200 mg elemental calcium Dose = mg calcium carbonate ( mg elemental calcium) Calcium 2020-06 No Notes: Mem[facility] Carbonate 0- (Same As: l 02:00: Tums) Calcium Carbonate 500 mg = 200 mg elemental calcium Dose = mg calcium carbonate ( mg elemental calcium) Calcium 2020-06 No Notes: Mem[facility] Carbonate 0- (Same As: l 02:00: Tums) Calcium Carbonate 500 mg = 200 mg elemental calcium Dose = mg calcium carbonate ( mg elemental calcium) Calcium 2020-06 No Notes: Memoria Carbonate 0- (Same As: l 02:00: Tums) [place] 00 Calcium Carbonate 500 mg = 200 mg elemental calcium Dose = mg calcium carbonate ( mg elemental calcium) Calcium 2020-06 No Notes: Memoria Carbonate 0- (Same As: l 02:00: Tums) [place] 00 Calcium Carbonate 500 mg = 200 mg elemental calcium Dose = mg calcium carbonate ( mg elemental calcium) Calcium 2020-06 No Notes: Memoria Carbonate 0- (Same As: l 02:00: Tums) [place] 00 Calcium Carbonate 500 mg = 200 mg elemental calcium Dose = mg calcium carbonate ( mg elemental calcium) Calcium 2020-06 No Notes: Memoria Carbonate 0- (Same As: l 02:00: Tums) [place] 00 Calcium Carbonate 500 mg = 200 mg elemental calcium Dose = mg calcium carbonate ( mg elemental calcium) Calcium 2020-06 No Notes: Memoria Carbonate 0 (Same As: l 02:00: Tums) [place] 00 Calcium Carbonate 500 mg = 200 mg elemental calcium Dose = mg calcium carbonate ( mg elemental calcium) Calcium 2020-06 No Notes: Memoria Carbonate 0- (Same As: l 02:00: Tums) [place] Calcium Carbonate 500 mg = 200 mg elemental calcium Dose = mg calcium carbonate ( mg elemental calcium) Calcium 2020-06 No Notes: Memoria Carbonate 0 (Same As: l 02:00: Tums) [place] Calcium Carbonate 500 mg = 200 mg elemental calcium Dose = mg calcium carbonate ( mg elemental calcium) Calcium 2020-06 No Notes: Memoria Carbonate 0 (Same As: l 02:00: Tums) [place] 00 Calcium Carbonate 500 mg = 200 mg elemental calcium Dose = mg calcium carbonate ( mg elemental calcium) Calcium 2020-06 No Notes: Memoria Carbonate 0 (Same As: l 02:00: Tums) [place] 00 Calcium Carbonate 500 mg = 200 mg elemental calcium Dose = mg calcium carbonate ( mg elemental calcium) Calcium 2020-06 No Notes: Memoria Carbonate 0- (Same As: l 02:00: Tums) [place] 00 Calcium Carbonate 500 mg = 200 mg elemental calcium Dose = mg calcium carbonate ( mg elemental calcium) Calcium 2020-06 No Notes: Memoria Carbonate 0- (Same As: l 02:00: Tums) [place] Calcium Carbonate 500 mg = 200 mg elemental calcium Dose = mg calcium carbonate ( mg elemental calcium) Calcium 2020-06 No Notes: Memoria Carbonate 0- (Same As: l 02:00: Tums) [place] Calcium Carbonate 500 mg = 200 mg elemental calcium Dose = mg calcium carbonate ( mg elemental calcium) Calcium 2020-06 No Notes: Memoria Carbonate 0- (Same As: l 02:00: Tums) [place] Calcium Carbonate 500 mg = 200 mg elemental calcium Dose = mg calcium carbonate ( mg elemental calcium) Calcium 2020-06 No Notes: Memoria Carbonate 0 (Same As: l 02:00: Tums) Ran Calcium Carbonate 500 mg = 200 mg elemental calcium Dose = mg calcium carbonate ( mg elemental calcium) Calcium 2020-06 No Notes: Memoria Carbonate 0- (Same As: l 02:00: Tums) [place] Calcium Carbonate 500 mg = 200 mg elemental calcium Dose = mg calcium carbonate ( mg elemental calcium) Calcium 2020-06 No Notes: Memoria Carbonate 0 (Same As: l 02:00: Tums) Ran Calcium Carbonate 500 mg = 200 mg elemental calcium Dose = mg calcium carbonate ( mg elemental calcium) Calcium 2020-06 No Notes: Memoria Carbonate 0- (Same As: l 02:00: Tums) [place] Calcium Carbonate 500 mg = 200 mg elemental calcium Dose = mg calcium carbonate ( mg elemental calcium) Calcium 2020-06 No Notes: Memoria Carbonate 0- (Same As: l 02:00: Tums) [place] 00 Calcium Carbonate 500 mg = 200 mg elemental calcium Dose = mg calcium carbonate ( mg elemental calcium) Calcium 2020-06 No Notes: Memoria Carbonate 0- (Same As: l 02:00: Tums) [place] 00 Calcium Carbonate 500 mg = 200 mg elemental calcium Dose = mg calcium carbonate ( mg elemental calcium) Calcium 2020-06 No Notes: Memoria Carbonate 0-19 (Same As: l 02:00: Tums) [place] 00 Calcium Carbonate 500 mg = 200 mg elemental calcium Dose = mg calcium carbonate ( mg elemental calcium) Calcium 2020-06 No Notes: Memoria Carbonate 0- (Same As: l 02:00: Tums) [place] 00 Calcium Carbonate 500 mg = 200 mg elemental calcium Dose = mg calcium carbonate ( mg elemental calcium) Calcium 2020-06 No Notes: Memoria Carbonate 0- (Same As: l :00: Tums) [place] 00 Calcium Carbonate 500 mg = 200 mg elemental calcium Dose = mg calcium carbonate ( mg elemental calcium) Calcium 2020-06 No Notes: Memoria Carbonate 0- (Same As: l :00: Tums) [place] 00 Calcium Carbonate 500 mg = 200 mg elemental calcium Dose = mg calcium carbonate ( mg elemental calcium) Calcium 2020-06 No Notes: Memoria Carbonate 0- (Same As: l :00: Tums) [place] 00 Calcium Carbonate 500 mg = 200 mg elemental calcium Dose = mg calcium carbonate ( mg elemental calcium) Calcium 2020-06 No Notes: Memoria Carbonate 0- (Same As: l :: Tums) [place] 00 Calcium Carbonate 500 mg = 200 mg elemental calcium Dose = mg calcium carbonate ( mg elemental calcium) Calcium 2020-06 No Notes: Memoria Carbonate 0- (Same As: l 02:00: Tums) Ran Calcium Carbonate 500 mg = 200 mg elemental calcium Dose = mg calcium carbonate ( mg elemental calcium) Calcium 2020-06 No Notes: Memoria Carbonate 0- (Same As: l 02:00: Tums) [place] Calcium Carbonate 500 mg = 200 mg elemental calcium Dose = mg calcium carbonate ( mg elemental calcium) Calcium 2020-06 No Notes: Memoria Carbonate 0-19 (Same As: l 02:00: Tums) [place] 00 Calcium Carbonate 500 mg = 200 mg elemental calcium Dose = mg calcium carbonate ( mg elemental calcium) Calcium 2020-06 No Notes: Memoria Carbonate 0- (Same As: l 02:00: Tums) [place] 00 Calcium Carbonate 500 mg = 200 mg elemental calcium Dose = mg calcium carbonate ( mg elemental calcium) Calcium 2020-06 No Notes: Memoria Carbonate 0- (Same As: l 02:00: Tums) Ran Calcium Carbonate 500 mg = 200 mg elemental calcium Dose = mg calcium carbonate ( mg elemental calcium) Calcium 2020-06 No Notes: Memoria Carbonate 0- (Same As: l 02:00: Tums) [place] Calcium Carbonate 500 mg = 200 mg elemental calcium Dose = mg calcium carbonate ( mg elemental calcium) Calcium 2020-06 No Notes: Memoria Carbonate 0- (Same As: l 02:00: Tums) Ran Calcium Carbonate 500 mg = 200 mg elemental calcium Dose = mg calcium carbonate ( mg elemental calcium) Calcium 2020-06 No Notes: Memoria Carbonate 0- (Same As: l 02:00: Tums) [place] Calcium Carbonate 500 mg = 200 mg elemental calcium Dose = mg calcium carbonate ( mg elemental calcium) Calcium 2020-06 No Notes: Memoria Carbonate 0- (Same As: l 02:00: Tums) [place] 00 Calcium Carbonate 500 mg = 200 mg elemental calcium Dose = mg calcium carbonate ( mg elemental calcium) Dilaudid 2020-06 No Notes: Memoria 0-19 Same as: l 00:00: Dilaudid [place] Dilaudid 2020-06 No Notes: Memoria 0-19 Same as: l 00:00: Dilaudid [place] Dilaudid 2020-06 No Notes: Memoria 0-19 Same as: l 00:00: Dilaudid [place] 00 Dilaudid 2020-06 No Notes: [facility]oria 0-19 Same as: l 00:00: Dilaudid [place] 00 Dilaudid 2020-06 No Notes: Memoria 0-19 Same as: l 00:00: Dilaudid [place] 00 Dilaudid 2020-06 No Notes: Memoria 0-19 Same as: l 00:00: Dilaudid [place] 00 Dilaudid 2020-06 No Notes: Memoria 0-19 Same as: l 00:00: Dilaudid [place] 00 Dilaudid 2020-06 No Notes: [facility]oria 0-19 Same as: l 00:00: Dilaudid [place] 00 Dilaudid 2020-06 No Notes: Memoria 0-19 Same as: l 00:00: Dilaudid [place] 00 Dilaudid 2020-06 No Notes: Memoria 0-19 Same as: l 00:00: Dilaudid [place] 00 Dilaudid 2020-06 No Notes: Memoria 0-19 Same as: l 00:00: Dilaudid [place] 00 Dilaudid 2020-06 No Notes: [facility]oria 0-19 Same as: l 00:00: Dilaudid [place] 00 Dilaudid 2020-06 No Notes: [facility]oria 0-19 Same as: l 00:00: Dilaudid [place] 00 Dilaudid 2020-06 No Notes: Memoria 0-19 Same as: l 00:00: Dilaudid [place] 00 Dilaudid 2020-06 No Notes: [facility]oria 0-19 Same as: l 00:00: Dilaudid [place] 00 Dilaudid 2020-06 No Notes: [facility]oria 0-19 Same as: l 00:00: Dilaudid [place] 00 Dilaudid 2020-06 No Notes: [facility] 0-19 Same as: l 00:00: Dilaudid [place] 00 Dilaudid 2020-06 No Notes: [facility]oria 0-19 Same as: l 00:00: Dilaudid [place] 00 Dilaudid 2020-06 No Notes: [facility]oria 0-19 Same as: l 00:00: Dilaudid [place] 00 Dilaudid 2020-06 No Notes: [facility]oria 0-19 Same as: l 00:00: Dilaudid [place] 00 Dilaudid 2020-06 No Notes: [facility]oria 0-19 Same as: l 00:00: Dilaudid [place] 00 Dilaudid 2020-06 No Notes: [facility]oria 0-19 Same as: l 00:00: Dilaudid [place] 00 Dilaudid 2020-06 No Notes: [facility]oria 0-19 Same as: l 00:00: Dilaudid [place] 00 Dilaudid 2020-06 No Notes: [facility]oria 0-19 Same as: l 00:00: Dilaudid [place] 00 Dilaudid 2020-06 No Notes: [facility]oria 0-19 Same as: l 00:00: Dilaudid [place] 00 Dilaudid 2020-06 No Notes: [facility]oria 0-19 Same as: l 00:00: Dilaudid [place] 00 Dilaudid 2020-06 No Notes: [facility]oria 0-19 Same as: l 00:00: Dilaudid [place] 00 Dilaudid 2020-06 No Notes: [facility]oria 0-19 Same as: l 00:00: Dilaudid [place] 00 Dilaudid 2020-06 No Notes: [facility]oria 0-19 Same as: l 00:00: Dilaudid [place] 00 Dilaudid 2020-06 No Notes: [facility] 0-19 Same as: l 00:00: Dilaudid [place] 00 Dilaudid 2020-06 No Notes: [facility]oria 0-19 Same as: l 00:00: Dilaudid [place] 00 Dilaudid 2020-06 No Notes: [facility] 0-19 Same as: l 00:00: Dilaudid [place] 00 Dilaudid 2020-06 No Notes: [facility] 0-19 Same as: l 00:00: Dilaudid [place] 00 Dilaudid 2020-06 No Notes: [facility] 0-19 Same as: l 00:00: Dilaudid [place] 00 Dilaudid 2020-06 No Notes: [facility] 0-19 Same as: l 00:00: Dilaudid [place] 00 Dilaudid 2020-06 No Notes: [facility] 0-19 Same as: l 00:00: Dilaudid [place] 00 Dilaudid 2020-06 No Notes: [facility] 0-19 Same as: l 00:00: Dilaudid [place] 00 Dilaudid 2020-06 No Notes: [facility] 0-19 Same as: l 00:00: Dilaudid [place] 00 Dilaudid 2020-06 No Notes: [facility] 0-19 Same as: l 00:00: Dilaudid [place] 00 Dilaudid 2020-06 No Notes: [facility] 0-19 Same as: l 00:00: Dilaudid [place] 00 HYDROcodone 2020-06 Yes TAKE ONE UT -acetaminop 0-19 (1) OR TWO [facility] ([facility]) 00:00: (2) 10-325 MG 00 TABLET(S) tablet BY MOUTH EVERY FOUR TO SIX HOURS NEEDED FOR PAIN. ondansetron 2020-06 Yes 4mg Q.5D Take 4 mg U T (Zofran) 4 0-19 by mouth 2 [facility] MG tablet 00:00: (two) 00 times a day. HYDROcodone 2020-06 Yes TAKE ONE UT -acetaminop 0-19 (1) OR TWO [facility] ([place]) 00:00: (2) 10-325 MG 00 TABLET(S) tablet BY MOUTH EVERY FOUR TO SIX HOURS NEEDED FOR PAIN. ondansetron 2020-06 Yes 4mg Q.5D Take 4 mg U T (Zofran) 4 0-19 by mouth 2 [facility] MG tablet 00:00: (two) 00 times a day. HYDROcodone 2020-06 Yes TAKE ONE UT -acetaminop 0-19 (1) OR TWO [facility] ([place]) 00:00: (2) 10-325 MG 00 TABLET(S) tablet BY MOUTH EVERY FOUR TO SIX HOURS NEEDED FOR PAIN. ondansetron 2020-06 Yes 4mg Q.5D Take 4 mg U T (Zofran) 4 0-19 by mouth 2 [facility] MG tablet 00:00: (two) 00 times a day. HYDROcodone 2020-06 Yes TAKE ONE UT -acetaminop 0-19 (1) OR TWO [facility] ([place]) 00:00: (2) 10-325 MG 00 TABLET(S) tablet BY MOUTH EVERY FOUR TO SIX HOURS NEEDED FOR PAIN. ondansetron 2020-06 Yes 4mg Q.5D Take 4 mg U T (Zofran) 4 0-19 by mouth 2 [facility] MG tablet 00:00: (two) 00 times a day. morphine 2020-06 No Route: IV, Mem oria Sulfate 0-18 Drug form: l (ANES) 23:47: INJ, ONCE, Hermila Stop date: 04/10/21 18:47:00 CDT ketOROLAC 2020-06 No IV, ONCE [place] (ANES) 0-18 l 23:47: morphine 2020-06 No Route: IV, Mem oria Sulfate 0-18 Drug form: l (ANES) 23:47: INJ, ONCE, Hermila Stop date: 04/10/21 18:47:00 CDT ketOROLAC 2020-06 No IV, ONCE [place] (ANES) 0-18 l 23:47: morphine 2020-06 No Route: IV, Mem oria Sulfate 0-18 Drug form: l (ANES) 23:47: INJ, ONCE, Hermila Stop date: 04/10/21 18:47:00 CDT ketOROLAC 2020-06 No IV, ONCE [place] (ANES) 0-18 l 23:47: morphine 2020-06 No Route: IV, Mem oria Sulfate 0-18 Drug form: l (ANES) 23:47: INJ, ONCE, Hermila Stop date: 04/10/21 18:47:00 CDT ketOROLAC 2020-06 No IV, ONCE [place] (ANES) 0-18 l 23:47: morphine 2020-06 No Route: IV, Mem oria Sulfate 0-18 Drug form: l (ANES) 23:47: INJ, ONCE, Hermila Stop date: 04/10/21 18:47:00 CDT ketOROLAC 2020-06 No IV, ONCE [place] (ANES) 0-18 l 23:47: morphine 2020-06 No Route: IV, Mem oria Sulfate 0-18 Drug form: l (ANES) 23:47: INJ, ONCE, Hermila Stop date: 04/10/21 18:47:00 CDT ketOROLAC 2020-06 No IV, ONCE [place] tim[place] (ANES) 0-18 l 23:47: [place] 00 morphine 2020-06 No Route: IV, Mem oria Sulfate 0-18 Drug form: l (ANES) 23:47: INJ, ONCE, Hermila Stop date: 04/10/21 18:47:00 CDT ketOROLAC 2020-06 No IV, ONCE [place] (ANES) 0-18 l 23:47: [place] 00 morphine 2020-06 No Route: IV, Mem oria Sulfate 0-18 Drug form: l (ANES) 23:47: INJ, ONCE, Hermila Stop date: 04/10/21 18:47:00 CDT ketOROLAC 2020-06 No IV, ONCE [place] (ANES) 0-18 l 23:47: morphine 2020-06 No Route: IV, Mem oria Sulfate 0-18 Drug form: l (ANES) 23:47: INJ, ONCE, Hermila Stop date: 04/10/21 18:47:00 CDT ketOROLAC 2020-06 No IV, ONCE [place] (ANES) 0-18 l 23:47: morphine 2020-06 No Route: IV, Mem oria Sulfate 0-18 Drug form: l (ANES) 23:47: INJ, ONCE, Hermila Stop date: 04/10/21 18:47:00 CDT ketOROLAC 2020-06 No IV, ONCE [place] (ANES) 0-18 l 23:47: morphine 2020-06 No Route: IV, Mem oria Sulfate 0-18 Drug form: l (ANES) 23:47: INJ, ONCE, Hermila Stop date: 04/10/21 18:47:00 CDT ketOROLAC 2020-06 No IV, ONCE [place] (ANES) 0-18 l 23:47: morphine 2020-06 No Route: IV, Mem oria Sulfate 0-18 Drug form: l (ANES) 23:47: INJ, ONCE, Hermila nn Stop date: 04/10/21 18:47:00 CDT ketOROLAC 2020-06 No IV, ONCE [place] (ANES) 0-18 l 23:47: morphine 2020-06 No Route: IV, Mem oria Sulfate 0-18 Drug form: l (ANES) 23:47: INJ, ONCE, Hermila Stop date: 04/10/21 18:47:00 CDT ketOROLAC 2020-06 No IV, ONCE [place] (ANES) 0-18 l 23:47: morphine 2020-06 No Route: IV, Mem oria Sulfate 0-18 Drug form: l (ANES) 23:47: INJ, ONCE, Hermila Stop date: 04/10/21 18:47:00 CDT ketOROLAC 2020-06 No IV, ONCE [place] (ANES) 0-18 l 23:47: morphine 2020-06 No Route: IV, Mem oria Sulfate 0-18 Drug form: l (ANES) 23:47: INJ, ONCE, Hermila Stop date: 04/10/21 18:47:00 CDT ketOROLAC 2020-06 No IV, ONCE [place] (ANES) 0-18 l 23:47: morphine 2020-06 No Route: IV, Mem oria Sulfate 0-18 Drug form: l (ANES) 23:47: INJ, ONCE, Hermila Stop date: 04/10/21 18:47:00 CDT ketOROLAC 2020-06 No IV, ONCE [place] (ANES) 0-18 l 23:47: morphine 2020-06 No Route: IV, Mem oria Sulfate 0-18 Drug form: l (ANES) 23:47: INJ, ONCE, Hermila Stop date: 04/10/21 18:47:00 CDT ketOROLAC 2020-06 No IV, ONCE [place] (ANES) 0-18 l 23:47: morphine 2020-06 No Route: IV, Mem oria Sulfate 0-18 Drug form: l (ANES) 23:47: INJ, ONCE, Hermila Stop date: 04/10/21 18:47:00 CDT ketOROLAC 2020-06 No IV, ONCE [place] (ANES) 0-18 l 23:47: morphine 2020-06 No Route: IV, Mem oria Sulfate 0-18 Drug form: l (ANES) 23:47: INJ, ONCE, Hermila nn Stop date: 04/10/21 18:47:00 CDT ketOROLAC 2020-06 No IV, ONCE [place] (ANES) 0-18 l 23:47: [place] 00 morphine 2020-06 No Route: IV, Mem oria Sulfate 0-18 Drug form: l (ANES) 23:47: INJ, ONCE, Hermila Stop date: 04/10/21 18:47:00 CDT ketOROLAC 2020-06 No IV, ONCE [place] (ANES) 0-18 l 23:47: morphine 2020-06 No Route: IV, Mem oria Sulfate 0-18 Drug form: l (ANES) 23:47: INJ, ONCE, Hermila Stop date: 04/10/21 18:47:00 CDT ketOROLAC 2020-06 No IV, ONCE [place] (ANES) 0-18 l 23:47: morphine 2020-06 No Route: IV, Mem oria Sulfate 0-18 Drug form: l (ANES) 23:47: INJ, ONCE, Hermila Stop date: 04/10/21 18:47:00 CDT ketOROLAC 2020-06 No IV, ONCE [place] (ANES) 0-18 l 23:47: morphine 2020-06 No Route: IV, Mem oria Sulfate 0-18 Drug form: l (ANES) 23:47: INJ, ONCE, Hermila Stop date: 04/10/21 18:47:00 CDT ketOROLAC 2020-06 No IV, ONCE [place] (ANES) 0-18 l 23:47: morphine 2020-06 No Route: IV, Mem oria Sulfate 0-18 Drug form: l (ANES) 23:47: INJ, ONCE, Hermila Stop date: 04/10/21 18:47:00 CDT ketOROLAC 2020-06 No IV, ONCE [place] (ANES) 0-18 l 23:47: morphine 2020-06 No Route: IV, Mem oria Sulfate 0-18 Drug form: l (ANES) 23:47: INJ, ONCE, Hermila Stop date: 04/10/21 18:47:00 CDT ketOROLAC 2020-06 No IV, ONCE [place] (ANES) 0-18 l 23:47: [place] morphine 2020-06 No Route: IV, Mem oria Sulfate 0-18 Drug form: l (ANES) 23:47: INJ, ONCE, Hermila Stop date: 04/10/21 18:47:00 CDT ketOROLAC 2020-06 No IV, ONCE [place] (ANES) 0-18 l 23:47: morphine 2020-06 No Route: IV, Mem oria Sulfate 0-18 Drug form: l (ANES) 23:47: INJ, ONCE, Hermila Stop date: 04/10/21 18:47:00 CDT ketOROLAC 2020-06 No IV, ONCE [place] (ANES) 0-18 l 23:47: morphine 2020-06 No Route: IV, Mem oria Sulfate 0-18 Drug form: l (ANES) 23:47: INJ, ONCE, Hermila Stop date: 04/10/21 18:47:00 CDT ketOROLAC 2020-06 No IV, ONCE [place] (ANES) 0-18 l 23:47: morphine 2020-06 No Route: IV, Mem oria Sulfate 0-18 Drug form: l (ANES) 23:47: INJ, ONCE, Hermila Stop date: 04/10/21 18:47:00 CDT ketOROLAC 2020-06 No IV, ONCE [place] (ANES) 0-18 l 23:47: [place] morphine 2020-06 No Route: IV, Mem oria Sulfate 0-18 Drug form: l (ANES) 23:47: INJ, ONCE, Hermila Stop date: 04/10/21 18:47:00 CDT ketOROLAC 2020-06 No IV, ONCE [place] (ANES) 0-18 l 23:47: morphine 2020-06 No Route: IV, Mem oria Sulfate 0-18 Drug form: l (ANES) 23:47: INJ, ONCE, Hermila Stop date: 04/10/21 18:47:00 CDT ketOROLAC 2020-06 No IV, ONCE [place] (ANES) 0-18 l 23:47: morphine 2020-06 No Route: IV, Mem oria Sulfate 0-18 Drug form: l (ANES) 23:47: INJ, ONCE, Hermila nn Stop date: 04/10/21 18:47:00 CDT ketOROLAC 2020-06 No IV, ONCE [place] (ANES) 0-18 l 23:47: morphine 2020-06 No Route: IV, Mem oria Sulfate 0-18 Drug form: l (ANES) 23:47: INJ, ONCE, Hermila nn Stop date: 04/10/21 18:47:00 CDT ketOROLAC 2020-06 No IV, ONCE [place] (ANES) 0-18 l 23:47: morphine 2020-06 No Route: IV, Mem oria Sulfate 0-18 Drug form: l (ANES) 23:47: INJ, ONCE, Hermila Stop date: 04/10/21 18:47:00 CDT ketOROLAC 2020-06 No IV, ONCE [place] (ANES) 0-18 l 23:47: morphine 2020-06 No Route: IV, Mem oria Sulfate 0-18 Drug form: l (ANES) 23:47: INJ, ONCE, Hermila nn Stop date: 04/10/21 18:47:00 CDT ketOROLAC 2020-06 No IV, ONCE [place] (ANES) 0-18 l 23:47: morphine 2020-06 No Route: IV, Mem oria Sulfate 0-18 Drug form: l (ANES) 23:47: INJ, ONCE, Hermila Stop date: 04/10/21 18:47:00 CDT ketOROLAC 2020-06 No IV, ONCE [place] (ANES) 0-18 l 23:47: morphine 2020-06 No Route: IV, Mem oria Sulfate 0-18 Drug form: l (ANES) 23:47: INJ, ONCE, Hermila Stop date: 04/10/21 18:47:00 CDT ketOROLAC 2020-06 No IV, ONCE [place] (ANES) 0-18 l 23:47: morphine 2020-06 No Route: IV, Mem oria Sulfate 0-18 Drug form: l (ANES) 23:47: INJ, ONCE, Hermila Stop date: 04/10/21 18:47:00 CDT ketOROLAC 2020-06 No IV, ONCE [place] (ANES) 0-18 l 23:47: morphine 2020-06 No Route: IV, Mem oria Sulfate 0-18 Drug form: l (ANES) 23:47: INJ, ONCE, Stop date: 04/10/21 18:47:00 CDT ketOROLAC 2020-06 No IV, ONCE [place] (ANES) 0-18 l 23:47: morphine 2020-06 No Route: IV, Mem oria Sulfate 0-18 Drug form: l (ANES) 23:47: INJ, ONCE, Stop date: 04/10/21 18:47:00 CDT ketOROLAC 2020-06 No IV, ONCE [place] (ANES) 0-18 l 23:47: dexamethaso 2020-06 No Route: IV, Memoria ne (ANES) 0-18 Drug form: l 23:23: INJ, ONCE, Stop date: 04/10/21 18:23:00 CDT dexamethaso 2020-06 No Route: IV, Memoria ne (ANES) 0-18 Drug form: l 23:23: INJ, ONCE, Stop date: 04/10/21 18:23:00 CDT dexamethaso 2020-06 No Route: IV, Memoria ne (ANES) 0-18 Drug form: l 23:23: INJ, ONCE, Stop date: 04/10/21 18:23:00 CDT dexamethaso 2020-06 No Route: IV, Memoria ne (ANES) 0-18 Drug form: l 23:23: INJ, ONCE, Stop date: 04/10/21 18:23:00 CDT dexamethaso 2020-06 No Route: IV, Memoria ne (ANES) 0-18 Drug form: l 23:23: INJ, ONCE, Stop date: 04/10/21 18:23:00 CDT dexamethaso 2020-06 No Route: IV, Memoria ne (ANES) 0-18 Drug form: l 23:23: INJ, ONCE, Stop date: 04/10/21 18:23:00 CDT dexamethaso 2020-06 No Route: IV, Memoria ne (ANES) 0-18 Drug form: l 23:23: INJ, ONCE, Stop date: 04/10/21 18:23:00 CDT dexamethaso 2020-06 No Route: IV, Memoria ne (ANES) 0-18 Drug form: l 23:23: INJ, ONCE, Stop date: 04/10/21 18:23:00 CDT dexamethaso 2020-06 No Route: IV, Memoria ne (ANES) 0-18 Drug form: l 23:23: INJ, ONCE, Stop date: 04/10/21 18:23:00 CDT dexamethaso 2020-06 No Route: IV, Memoria ne (ANES) 0-18 Drug form: l 23:23: INJ, ONCE, Stop date: 04/10/21 18:23:00 CDT dexamethaso 2020-06 No Route: IV, Memoria ne (ANES) 0-18 Drug form: l 23:23: INJ, ONCE, Stop date: 04/10/21 18:23:00 CDT dexamethaso 2020-06 No Route: IV, Memoria ne (ANES) 0-18 Drug form: l 23:23: INJ, ONCE, Stop date: 04/10/21 18:23:00 CDT dexamethaso 2020-06 No Route: IV, Memoria ne (ANES) 0-18 Drug form: l 23:23: INJ, ONCE, Stop date: 04/10/21 18:23:00 CDT dexamethaso 2020-06 No Route: IV, Memoria ne (ANES) 0-18 Drug form: l 23:23: INJ, ONCE, Stop date: 04/10/21 18:23:00 CDT dexamethaso 2020-06 No Route: IV, Memoria ne (ANES) 0-18 Drug form: l 23:23: INJ, ONCE, Stop date: 04/10/21 18:23:00 CDT dexamethaso 2020-06 No Route: IV, Memoria ne (ANES) 0-18 Drug form: l 23:23: INJ, ONCE, Stop date: 04/10/21 18:23:00 CDT dexamethaso 2020-06 No Route: IV, Memoria ne (ANES) 0-18 Drug form: l 23:23: INJ, ONCE, Stop date: 04/10/21 18:23:00 CDT dexamethaso 2020-06 No Route: IV, Memoria ne (ANES) 0-18 Drug form: l 23:23: INJ, ONCE, Stop date: 04/10/21 18:23:00 CDT dexamethaso 2020-06 No Route: IV, Memoria ne (ANES) 0-18 Drug form: l 23:23: INJ, ONCE, Stop date: 04/10/21 18:23:00 CDT dexamethaso 2020-06 No Route: IV, Memoria ne (ANES) 0-18 Drug form: l 23:23: INJ, ONCE, Stop date: 04/10/21 18:23:00 CDT dexamethaso 2020-06 No Route: IV, Memoria ne (ANES) 0-18 Drug form: l 23:23: INJ, ONCE, Stop date: 04/10/21 18:23:00 CDT dexamethaso 2020-06 No Route: IV, Memoria ne (ANES) 0-18 Drug form: l 23:23: INJ, ONCE, Stop date: 04/10/21 18:23:00 CDT dexamethaso 2020-06 No Route: IV, Memoria ne (ANES) 0-18 Drug form: l 23:23: INJ, ONCE, Stop date: 04/10/21 18:23:00 CDT dexamethaso 2020-06 No Route: IV, Memoria ne (ANES) 0-18 Drug form: l 23:23: INJ, ONCE, Stop date: 04/10/21 18:23:00 CDT dexamethaso 2020-06 No Route: IV, Memoria ne (ANES) 0-18 Drug form: l 23:23: INJ, ONCE, Stop date: 04/10/21 18:23:00 CDT dexamethaso 2020-06 No Route: IV, Memoria ne (ANES) 0-18 Drug form: l 23:23: INJ, ONCE, Stop date: 04/10/21 18:23:00 CDT dexamethaso 2020-06 No Route: IV, Memoria ne (ANES) 0-18 Drug form: l 23:23: INJ, ONCE, Stop date: 04/10/21 18:23:00 CDT dexamethaso 2020-06 No Route: IV, Memoria ne (ANES) 0-18 Drug form: l 23:23: INJ, ONCE, Stop date: 04/10/21 18:23:00 CDT dexamethaso 2020-06 No Route: IV, Memoria ne (ANES) 0-18 Drug form: l 23:23: INJ, ONCE, Stop date: 04/10/21 18:23:00 CDT dexamethaso 2020-06 No Route: IV, Memoria ne (ANES) 0-18 Drug form: l 23:23: INJ, ONCE, Stop date: 04/10/21 18:23:00 CDT dexamethaso 2020-06 No Route: IV, Memoria ne (ANES) 0-18 Drug form: l 23:23: INJ, ONCE, Stop date: 04/10/21 18:23:00 CDT dexamethaso 2020-06 No Route: IV, Memoria ne (ANES) 0-18 Drug form: l 23:23: INJ, ONCE, Stop date: 04/10/21 18:23:00 CDT dexamethaso 2020-06 No Route: IV, Memoria ne (ANES) 0-18 Drug form: l 23:23: INJ, ONCE, Stop date: 04/10/21 18:23:00 CDT dexamethaso 2020-06 No Route: IV, Memoria ne (ANES) 0-18 Drug form: l 23:23: INJ, ONCE, Stop date: 04/10/21 18:23:00 CDT dexamethaso 2020-06 No Route: IV, Memoria ne (ANES) 0-18 Drug form: l 23:23: INJ, ONCE, Stop date: 04/10/21 18:23:00 CDT dexamethaso 2020-06 No Route: IV, Memoria ne (ANES) 0-18 Drug form: l 23:23: INJ, ONCE, Stop date: 04/10/21 18:23:00 CDT dexamethaso 2020-06 No Route: IV, Memoria ne (ANES) 0-18 Drug form: l 23:23: INJ, ONCE, Stop date: 04/10/21 18:23:00 CDT dexamethaso 2020-06 No Route: IV, Memoria ne (ANES) 0-18 Drug form: l 23:23: INJ, ONCE, Stop date: 04/10/21 18:23:00 CDT dexamethaso 2020-06 No Route: IV, Memoria ne (ANES) 0-18 Drug form: l 23:23: INJ, ONCE, Stop date: 04/10/21 18:23:00 CDT dexamethaso 2020-06 No Route: IV, Memoria ne (ANES) 0-18 Drug form: l 23:23: INJ, ONCE, Stop date: 04/10/21 18:23:00 CDT ePHEDrine 2020-06 No Route: IV, Me moria (ANES) 0-18 Drug form: l 23:08: INJ, ONCE, Stop date: 04/10/21 18:08:00 CDT ePHEDrine 2020-06 No Route: IV, Me mor[facility] (ANES) 0-18 Drug form: l 23:08: INJ, ONCE, Stop date: 04/10/21 18:08:00 CDT ePHEDrine 2021-1 No Route: IV, Me mor[place] (ANES) 0-18 Drug form: l 23:08: INJ, ONCE, Stop date: 04/10/21 18:08:00 CDT ePHEDrine 2020-06 No Route: IV, Me mor[facility] (ANES) 0-18 Drug form: l 23:08: INJ, ONCE, Stop date: 04/10/21 18:08:00 CDT ePHEDrine 2020-06 No Route: IV, Me mor[facility] (ANES) 0-18 Drug form: l 23:08: INJ, ONCE, Stop date: 04/10/21 18:08:00 CDT ePHEDrine 2020-06 No Route: IV, Me mor[place] (ANES) 0-18 Drug form: l 23:08: INJ, ONCE, Stop date: 04/10/21 18:08:00 CDT ePHEDrine 2020-06 No Route: IV, Me mor[facility] (ANES) 0-18 Drug form: l 23:08: INJ, ONCE, Stop date: 04/10/21 18:08:00 CDT ePHEDrine 2020-06 No Route: IV, Me mor[facility] (ANES) 0-18 Drug form: l 23:08: INJ, ONCE, Stop date: 04/10/21 18:08:00 CDT ePHEDrine 2020-06 No Route: IV, Me mor[place] (ANES) 0-18 Drug form: l 23:08: INJ, ONCE, Stop date: 04/10/21 18:08:00 CDT ePHEDrine 2020-06 No Route: IV, Me mor[place] (ANES) 0-18 Drug form: l 23:08: INJ, ONCE, Stop date: 04/10/21 18:08:00 CDT ePHEDrine 2020-06 No Route: IV, Me mor[place] (ANES) 0-18 Drug form: l 23:08: INJ, ONCE, Stop date: 04/10/21 18:08:00 CDT ePHEDrine 2020-06 No Route: IV, Me mor[place] (ANES) 0-18 Drug form: l 23:08: INJ, ONCE, Stop date: 04/10/21 18:08:00 CDT ePHEDrine 2020-06 No Route: IV, Me mor[place] (ANES) 0-18 Drug form: l 23:08: INJ, ONCE, Stop date: 04/10/21 18:08:00 CDT ePHEDrine 2020-06 No Route: IV, Me [place] (ANES) 0-18 Drug form: l 23:08: INJ, ONCE, Stop date: 04/10/21 18:08:00 CDT ePHEDrine 2020-06 No Route: IV, Me mor[place] (ANES) 0-18 Drug form: l 23:08: INJ, ONCE, Stop date: 04/10/21 18:08:00 CDT ePHEDrine 2020-06 No Route: IV, Me mor[place] (ANES) 0-18 Drug form: l 23:08: INJ, ONCE, Stop date: 04/10/21 18:08:00 CDT ePHEDrine 2020-06 No Route: IV, Me mor[place] (ANES) 0-18 Drug form: l 23:08: INJ, ONCE, Stop date: 04/10/21 18:08:00 CDT ePHEDrine 2020-06 No Route: IV, Me mor[place] (ANES) 0-18 Drug form: l 23:08: INJ, ONCE, Stop date: 04/10/21 18:08:00 CDT ePHEDrine 2020-06 No Route: IV, Me mor[place] (ANES) 0-18 Drug form: l 23:08: INJ, ONCE, Stop date: 04/10/21 18:08:00 CDT ePHEDrine 2020-06 No Route: IV, Me mor[place] (ANES) 0-18 Drug form: l 23:08: INJ, ONCE, Stop date: 04/10/21 18:08:00 CDT ePHEDrine 2020-06 No Route: IV, Me mor[place] (ANES) 0-18 Drug form: l 23:08: INJ, ONCE, Stop date: 04/10/21 18:08:00 CDT ePHEDrine 2020-06 No Route: IV, Me mor[place] (ANES) 0-18 Drug form: l 23:08: INJ, ONCE, Stop date: 04/10/21 18:08:00 CDT ePHEDrine 2020-06 No Route: IV, Me mor[place] (ANES) 0-18 Drug form: l 23:08: INJ, ONCE, Stop date: 04/10/21 18:08:00 CDT ePHEDrine 2020-06 No Route: IV, Me mor[place] (ANES) 0-18 Drug form: l 23:08: INJ, ONCE, Stop date: 04/10/21 18:08:00 CDT ePHEDrine 2020-06 No Route: IV, Me mor[place] (ANES) 0-18 Drug form: l 23:08: INJ, ONCE, Stop date: 04/10/21 18:08:00 CDT ePHEDrine 2020-06 No Route: IV, Me mor[place] (ANES) 0-18 Drug form: l 23:08: INJ, ONCE, Stop date: 04/10/21 18:08:00 CDT ePHEDrine 2020-06 No Route: IV, Me mor[place] (ANES) 0-18 Drug form: l 23:08: INJ, ONCE, Stop date: 04/10/21 18:08:00 CDT ePHEDrine 2020-06 No Route: IV, Me moria (ANES) 0-18 Drug form: l 23:08: INJ, ONCE, Stop date: 04/10/21 18:08:00 CDT ePHEDrine 2020-06 No Route: IV, Me moria (ANES) 0-18 Drug form: l 23:08: INJ, ONCE, Stop date: 04/10/21 18:08:00 CDT ePHEDrine 2020-06 No Route: IV, Me moria (ANES) 0-18 Drug form: l 23:08: INJ, ONCE, Stop date: 04/10/21 18:08:00 CDT ePHEDrine 2020-06 No Route: IV, Me moria (ANES) 0-18 Drug form: l 23:08: INJ, ONCE, Stop date: 04/10/21 18:08:00 CDT ePHEDrine 2020-06 No Route: IV, Me moria (ANES) 0-18 Drug form: l 23:08: INJ, ONCE, Stop date: 04/10/21 18:08:00 CDT ePHEDrine 2020-06 No Route: IV, Me moria (ANES) 0-18 Drug form: l 23:08: INJ, ONCE, Stop date: 04/10/21 18:08:00 CDT ePHEDrine 2020-06 No Route: IV, Me moria (ANES) 0-18 Drug form: l 23:08: INJ, ONCE, Stop date: 04/10/21 18:08:00 CDT ePHEDrine 2020-06 No Route: IV, Me moria (ANES) 0-18 Drug form: l 23:08: INJ, ONCE, Stop date: 04/10/21 18:08:00 CDT ePHEDrine 2020-06 No Route: IV, Me moria (ANES) 0-18 Drug form: l 23:08: INJ, ONCE, Stop date: 04/10/21 18:08:00 CDT ePHEDrine 2020-06 No Route: IV, Me moria (ANES) 0-18 Drug form: l 23:08: INJ, ONCE, Stop date: 04/10/21 18:08:00 CDT ePHEDrine 2020-06 No Route: IV, Me moria (ANES) 0-18 Drug form: l 23:08: INJ, ONCE, Stop date: 04/10/21 18:08:00 CDT ePHEDrine 2020-06 No Route: IV, Me moria (ANES) 0-18 Drug form: l 23:08: INJ, ONCE, Stop date: 04/10/21 18:08:00 CDT ePHEDrine 2020-06 No Route: IV, Me moria (ANES) 0-18 Drug form: l 23:08: INJ, ONCE, Stop date: 04/10/21 18:08:00 CDT lidocaine 2020-06 No Route: IV, Me moria (ANES) 0-18 Drug form: l 23:03: INJ, ONCE, Stop date: 04/10/21 18:03:00 CDT fentaNYL 2020-06 No Route: IV, Mem oria (ANES) 0-18 Drug form: l 23:03: INJ, ONCE, Stop date: 04/10/21 18:03:00 CDT propofol 2020-06 No Route: IV, Mem oria (ANES) 0-18 Drug form: l 23:03: INJ, ONCE, Stop date: 04/10/21 18:03:00 CDT lidocaine 2020-06 No Route: IV, Me moria (ANES) 0-18 Drug form: l 23:03: INJ, ONCE, Stop date: 04/10/21 18:03:00 CDT fentaNYL 2020-06 No Route: IV, Mem oria (ANES) 0-18 Drug form: l 23:03: INJ, ONCE, Stop date: 04/10/21 18:03:00 CDT propofol 2020-06 No Route: IV, Mem oria (ANES) 0-18 Drug form: l 23:03: INJ, ONCE, Stop date: 04/10/21 18:03:00 CDT lidocaine 2020-06 No Route: IV, Me moria (ANES) 0-18 Drug form: l 23:03: INJ, ONCE, Stop date: 04/10/21 18:03:00 CDT fentaNYL 2020-06 No Route: IV, Mem oria (ANES) 0-18 Drug form: l 23:03: INJ, ONCE, Stop date: 04/10/21 18:03:00 CDT propofol 2020-06 No Route: IV, Mem oria (ANES) 0-18 Drug form: l 23:03: INJ, ONCE, Stop date: 04/10/21 18:03:00 CDT lidocaine 2020-06 No Route: IV, Me moria (ANES) 0-18 Drug form: l 23:03: INJ, ONCE, Stop date: 04/10/21 18:03:00 CDT fentaNYL 2020-06 No Route: IV, Mem oria (ANES) 0-18 Drug form: l 23:03: INJ, ONCE, Stop date: 04/10/21 18:03:00 CDT propofol 2020-06 No Route: IV, Mem oria (ANES) 0-18 Drug form: l 23:03: INJ, ONCE, Stop date: 04/10/21 18:03:00 CDT lidocaine 2020-06 No Route: IV, Me moria (ANES) 0-18 Drug form: l 23:03: INJ, ONCE, Stop date: 04/10/21 18:03:00 CDT fentaNYL 2020-06 No Route: IV, Mem oria (ANES) 0-18 Drug form: l 23:03: INJ, ONCE, Stop date: 04/10/21 18:03:00 CDT propofol 2020-06 No Route: IV, Mem oria (ANES) 0-18 Drug form: l 23:03: INJ, ONCE, Stop date: 04/10/21 18:03:00 CDT lidocaine 2020-06 No Route: IV, Me moria (ANES) 0-18 Drug form: l 23:03: INJ, ONCE, Stop date: 04/10/21 18:03:00 CDT fentaNYL 2020-06 No Route: IV, Mem oria (ANES) 0-18 Drug form: l 23:03: INJ, ONCE, Stop date: 04/10/21 18:03:00 CDT propofol 2020-06 No Route: IV, Mem oria (ANES) 0-18 Drug form: l 23:03: INJ, ONCE, Stop date: 04/10/21 18:03:00 CDT lidocaine 2020-06 No Route: IV, Me moria (ANES) 0-18 Drug form: l 23:03: INJ, ONCE, Stop date: 04/10/21 18:03:00 CDT fentaNYL 2020-06 No Route: IV, Mem oria (ANES) 0-18 Drug form: l 23:03: INJ, ONCE, Stop date: 04/10/21 18:03:00 CDT propofol 2020-06 No Route: IV, Mem oria (ANES) 0-18 Drug form: l 23:03: INJ, ONCE, Stop date: 04/10/21 18:03:00 CDT lidocaine 2020-06 No Route: IV, Me moria (ANES) 0-18 Drug form: l 23:03: INJ, ONCE, Stop date: 04/10/21 18:03:00 CDT fentaNYL 2020-06 No Route: IV, Mem oria (ANES) 0-18 Drug form: l 23:03: INJ, ONCE, Stop date: 04/10/21 18:03:00 CDT propofol 2020-06 No Route: IV, Mem oria (ANES) 0-18 Drug form: l 23:03: INJ, ONCE, Stop date: 04/10/21 18:03:00 CDT lidocaine 2020-06 No Route: IV, Me moria (ANES) 0-18 Drug form: l 23:03: INJ, ONCE, Stop date: 04/10/21 18:03:00 CDT fentaNYL 2020-06 No Route: IV, Mem oria (ANES) 0-18 Drug form: l 23:03: INJ, ONCE, Stop date: 04/10/21 18:03:00 CDT propofol 2020-06 No Route: IV, Mem oria (ANES) 0-18 Drug form: l 23:03: INJ, ONCE, Stop date: 04/10/21 18:03:00 CDT lidocaine 2020-06 No Route: IV, Me moria (ANES) 0-18 Drug form: l 23:03: INJ, ONCE, Stop date: 04/10/21 18:03:00 CDT fentaNYL 2020-06 No Route: IV, Mem oria (ANES) 0-18 Drug form: l 23:03: INJ, ONCE, Stop date: 04/10/21 18:03:00 CDT propofol 2020-06 No Route: IV, Mem oria (ANES) 0-18 Drug form: l 23:03: INJ, ONCE, Stop date: 04/10/21 18:03:00 CDT lidocaine 2020-06 No Route: IV, Me moria (ANES) 0-18 Drug form: l 23:03: INJ, ONCE, Stop date: 04/10/21 18:03:00 CDT fentaNYL 2020-06 No Route: IV, Mem oria (ANES) 0-18 Drug form: l 23:03: INJ, ONCE, Stop date: 04/10/21 18:03:00 CDT propofol 2020-06 No Route: IV, Mem oria (ANES) 0-18 Drug form: l 23:03: INJ, ONCE, Stop date: 04/10/21 18:03:00 CDT lidocaine 2020-06 No Route: IV, Me moria (ANES) 0-18 Drug form: l 23:03: INJ, ONCE, Stop date: 04/10/21 18:03:00 CDT fentaNYL 2020-06 No Route: IV, Mem oria (ANES) 0-18 Drug form: l 23:03: INJ, ONCE, Stop date: 04/10/21 18:03:00 CDT propofol 2020-06 No Route: IV, Mem oria (ANES) 0-18 Drug form: l 23:03: INJ, ONCE, Stop date: 04/10/21 18:03:00 CDT lidocaine 2020-06 No Route: IV, Me moria (ANES) 0-18 Drug form: l 23:03: INJ, ONCE, Stop date: 04/10/21 18:03:00 CDT fentaNYL 2020-06 No Route: IV, Mem oria (ANES) 0-18 Drug form: l 23:03: INJ, ONCE, Stop date: 04/10/21 18:03:00 CDT propofol 2020-06 No Route: IV, Mem oria (ANES) 0-18 Drug form: l 23:03: INJ, ONCE, Stop date: 04/10/21 18:03:00 CDT lidocaine 2020-06 No Route: IV, Me moria (ANES) 0-18 Drug form: l 23:03: INJ, ONCE, Stop date: 04/10/21 18:03:00 CDT fentaNYL 2020-06 No Route: IV, Mem oria (ANES) 0-18 Drug form: l 23:03: INJ, ONCE, Stop date: 04/10/21 18:03:00 CDT propofol 2020-06 No Route: IV, Mem oria (ANES) 0-18 Drug form: l 23:03: INJ, ONCE, Stop date: 04/10/21 18:03:00 CDT lidocaine 2020-06 No Route: IV, Me moria (ANES) 0-18 Drug form: l 23:03: INJ, ONCE, Stop date: 04/10/21 18:03:00 CDT fentaNYL 2020-06 No Route: IV, Mem oria (ANES) 0-18 Drug form: l 23:03: INJ, ONCE, Stop date: 04/10/21 18:03:00 CDT propofol 2020-06 No Route: IV, Mem oria (ANES) 0-18 Drug form: l 23:03: INJ, ONCE, Stop date: 04/10/21 18:03:00 CDT lidocaine 2020-06 No Route: IV, Me moria (ANES) 0-18 Drug form: l 23:03: INJ, ONCE, Stop date: 04/10/21 18:03:00 CDT fentaNYL 2020-06 No Route: IV, Mem oria (ANES) 0-18 Drug form: l 23:03: INJ, ONCE, Stop date: 04/10/21 18:03:00 CDT propofol 2020-06 No Route: IV, Mem oria (ANES) 0-18 Drug form: l 23:03: INJ, ONCE, Stop date: 04/10/21 18:03:00 CDT lidocaine 2020-06 No Route: IV, Me moria (ANES) 0-18 Drug form: l 23:03: INJ, ONCE, Stop date: 04/10/21 18:03:00 CDT fentaNYL 2020-06 No Route: IV, Mem oria (ANES) 0-18 Drug form: l 23:03: INJ, ONCE, Stop date: 04/10/21 18:03:00 CDT propofol 2020-06 No Route: IV, Mem oria (ANES) 0-18 Drug form: l 23:03: INJ, ONCE, Stop date: 04/10/21 18:03:00 CDT lidocaine 2020-06 No Route: IV, Me moria (ANES) 0-18 Drug form: l 23:03: INJ, ONCE, Stop date: 04/10/21 18:03:00 CDT fentaNYL 2020-06 No Route: IV, Mem oria (ANES) 0-18 Drug form: l 23:03: INJ, ONCE, Stop date: 04/10/21 18:03:00 CDT propofol 2020-06 No Route: IV, Mem oria (ANES) 0-18 Drug form: l 23:03: INJ, ONCE, Stop date: 04/10/21 18:03:00 CDT lidocaine 2020-06 No Route: IV, Me moria (ANES) 0-18 Drug form: l 23:03: INJ, ONCE, Stop date: 04/10/21 18:03:00 CDT fentaNYL 2020-06 No Route: IV, Mem oria (ANES) 0-18 Drug form: l 23:03: INJ, ONCE, Stop date: 04/10/21 18:03:00 CDT propofol 2020-06 No Route: IV, Mem oria (ANES) 0-18 Drug form: l 23:03: INJ, ONCE, Stop date: 04/10/21 18:03:00 CDT lidocaine 2020-06 No Route: IV, Me moria (ANES) 0-18 Drug form: l 23:03: INJ, ONCE, Stop date: 04/10/21 18:03:00 CDT fentaNYL 2020-06 No Route: IV, Mem oria (ANES) 0-18 Drug form: l 23:03: INJ, ONCE, Stop date: 04/10/21 18:03:00 CDT propofol 2020-06 No Route: IV, Mem oria (ANES) 0-18 Drug form: l 23:03: INJ, ONCE, Stop date: 04/10/21 18:03:00 CDT lidocaine 2020-06 No Route: IV, Me moria (ANES) 0-18 Drug form: l 23:03: INJ, ONCE, Stop date: 04/10/21 18:03:00 CDT fentaNYL 2020-06 No Route: IV, Mem oria (ANES) 0-18 Drug form: l 23:03: INJ, ONCE, Stop date: 04/10/21 18:03:00 CDT propofol 2020-06 No Route: IV, Mem oria (ANES) 0-18 Drug form: l 23:03: INJ, ONCE, Stop date: 04/10/21 18:03:00 CDT lidocaine 2020-06 No Route: IV, Me moria (ANES) 0-18 Drug form: l 23:03: INJ, ONCE, Stop date: 04/10/21 18:03:00 CDT fentaNYL 2020-06 No Route: IV, Mem oria (ANES) 0-18 Drug form: l 23:03: INJ, ONCE, Stop date: 04/10/21 18:03:00 CDT propofol 2020-06 No Route: IV, Mem oria (ANES) 0-18 Drug form: l 23:03: INJ, ONCE, Stop date: 04/10/21 18:03:00 CDT lidocaine 2020-06 No Route: IV, Me moria (ANES) 0-18 Drug form: l 23:03: INJ, ONCE, Stop date: 04/10/21 18:03:00 CDT fentaNYL 2020-06 No Route: IV, Mem oria (ANES) 0-18 Drug form: l 23:03: INJ, ONCE, Stop date: 04/10/21 18:03:00 CDT propofol 2020-06 No Route: IV, Mem oria (ANES) 0-18 Drug form: l 23:03: INJ, ONCE, Stop date: 04/10/21 18:03:00 CDT lidocaine 2020-06 No Route: IV, Me moria (ANES) 0-18 Drug form: l 23:03: INJ, ONCE, Stop date: 04/10/21 18:03:00 CDT fentaNYL 2020-06 No Route: IV, Mem oria (ANES) 0-18 Drug form: l 23:03: INJ, ONCE, Stop date: 04/10/21 18:03:00 CDT propofol 2020-06 No Route: IV, Mem oria (ANES) 0-18 Drug form: l 23:03: INJ, ONCE, Stop date: 04/10/21 18:03:00 CDT lidocaine 2020-06 No Route: IV, Me moria (ANES) 0-18 Drug form: l 23:03: INJ, ONCE, Stop date: 04/10/21 18:03:00 CDT fentaNYL 2020-06 No Route: IV, Mem oria (ANES) 0-18 Drug form: l 23:03: INJ, ONCE, Stop date: 04/10/21 18:03:00 CDT propofol 2020-06 No Route: IV, Mem oria (ANES) 0-18 Drug form: l 23:03: INJ, ONCE, Stop date: 04/10/21 18:03:00 CDT lidocaine 2020-06 No Route: IV, Me moria (ANES) 0-18 Drug form: l 23:03: INJ, ONCE, Stop date: 04/10/21 18:03:00 CDT fentaNYL 2020-06 No Route: IV, Mem oria (ANES) 0-18 Drug form: l 23:03: INJ, ONCE, Stop date: 04/10/21 18:03:00 CDT propofol 2020-06 No Route: IV, Mem oria (ANES) 0-18 Drug form: l 23:03: INJ, ONCE, Stop date: 04/10/21 18:03:00 CDT lidocaine 2020-06 No Route: IV, Me moria (ANES) 0-18 Drug form: l 23:03: INJ, ONCE, Stop date: 04/10/21 18:03:00 CDT fentaNYL 2020-06 No Route: IV, Mem oria (ANES) 0-18 Drug form: l 23:03: INJ, ONCE, Stop date: 04/10/21 18:03:00 CDT propofol 2020-06 No Route: IV, Mem oria (ANES) 0-18 Drug form: l 23:03: INJ, ONCE, Stop date: 04/10/21 18:03:00 CDT lidocaine 2020-06 No Route: IV, Me moria (ANES) 0-18 Drug form: l 23:03: INJ, ONCE, Stop date: 04/10/21 18:03:00 CDT fentaNYL 2020-06 No Route: IV, Mem oria (ANES) 0-18 Drug form: l 23:03: INJ, ONCE, Stop date: 04/10/21 18:03:00 CDT propofol 2020-06 No Route: IV, Mem oria (ANES) 0-18 Drug form: l 23:03: INJ, ONCE, Stop date: 04/10/21 18:03:00 CDT lidocaine 2020-06 No Route: IV, Me moria (ANES) 0-18 Drug form: l 23:03: INJ, ONCE, Stop date: 04/10/21 18:03:00 CDT fentaNYL 2020-06 No Route: IV, Mem oria (ANES) 0-18 Drug form: l 23:03: INJ, ONCE, Stop date: 04/10/21 18:03:00 CDT propofol 2020-06 No Route: IV, Mem oria (ANES) 0-18 Drug form: l 23:03: INJ, ONCE, Stop date: 04/10/21 18:03:00 CDT lidocaine 2020-06 No Route: IV, Me moria (ANES) 0-18 Drug form: l 23:03: INJ, ONCE, Stop date: 04/10/21 18:03:00 CDT fentaNYL 2020-06 No Route: IV, Mem oria (ANES) 0-18 Drug form: l 23:03: INJ, ONCE, Stop date: 04/10/21 18:03:00 CDT propofol 2020-06 No Route: IV, Mem oria (ANES) 0-18 Drug form: l 23:03: INJ, ONCE, Stop date: 04/10/21 18:03:00 CDT lidocaine 2020-06 No Route: IV, Me moria (ANES) 0-18 Drug form: l 23:03: INJ, ONCE, Stop date: 04/10/21 18:03:00 CDT fentaNYL 2020-06 No Route: IV, Mem oria (ANES) 0-18 Drug form: l 23:03: INJ, ONCE, Stop date: 04/10/21 18:03:00 CDT propofol 2020-06 No Route: IV, Mem oria (ANES) 0-18 Drug form: l 23:03: INJ, ONCE, Stop date: 04/10/21 18:03:00 CDT lidocaine 2020-06 No Route: IV, Me moria (ANES) 0-18 Drug form: l 23:03: INJ, ONCE, Stop date: 04/10/21 18:03:00 CDT fentaNYL 2020-06 No Route: IV, Mem oria (ANES) 0-18 Drug form: l 23:03: INJ, ONCE, Stop date: 04/10/21 18:03:00 CDT propofol 2020-06 No Route: IV, Mem oria (ANES) 0-18 Drug form: l 23:03: INJ, ONCE, Stop date: 04/10/21 18:03:00 CDT lidocaine 2020-06 No Route: IV, Me moria (ANES) 0-18 Drug form: l 23:03: INJ, ONCE, Stop date: 04/10/21 18:03:00 CDT fentaNYL 2020-06 No Route: IV, Mem oria (ANES) 0-18 Drug form: l 23:03: INJ, ONCE, Stop date: 04/10/21 18:03:00 CDT propofol 2020-06 No Route: IV, Mem oria (ANES) 0-18 Drug form: l 23:03: INJ, ONCE, Stop date: 04/10/21 18:03:00 CDT lidocaine 2020-06 No Route: IV, Me moria (ANES) 0-18 Drug form: l 23:03: INJ, ONCE, Stop date: 04/10/21 18:03:00 CDT fentaNYL 2020-06 No Route: IV, Mem oria (ANES) 0-18 Drug form: l 23:03: INJ, ONCE, Stop date: 04/10/21 18:03:00 CDT propofol 2020-06 No Route: IV, Mem oria (ANES) 0-18 Drug form: l 23:03: INJ, ONCE, Stop date: 04/10/21 18:03:00 CDT lidocaine 2020-06 No Route: IV, Me moria (ANES) 0-18 Drug form: l 23:03: INJ, ONCE, Stop date: 04/10/21 18:03:00 CDT fentaNYL 2020-06 No Route: IV, Mem oria (ANES) 0-18 Drug form: l 23:03: INJ, ONCE, Stop date: 04/10/21 18:03:00 CDT propofol 2020-06 No Route: IV, Mem oria (ANES) 0-18 Drug form: l 23:03: INJ, ONCE, Stop date: 04/10/21 18:03:00 CDT lidocaine 2020-06 No Route: IV, Me moria (ANES) 0-18 Drug form: l 23:03: INJ, ONCE, Stop date: 04/10/21 18:03:00 CDT fentaNYL 2020-06 No Route: IV, Mem oria (ANES) 0-18 Drug form: l 23:03: INJ, ONCE, Stop date: 04/10/21 18:03:00 CDT propofol 2020-06 No Route: IV, Mem oria (ANES) 0-18 Drug form: l 23:03: INJ, ONCE, Stop date: 04/10/21 18:03:00 CDT lidocaine 2020-06 No Route: IV, Me moria (ANES) 0-18 Drug form: l 23:03: INJ, ONCE, Stop date: 04/10/21 18:03:00 CDT fentaNYL 2020-06 No Route: IV, Mem oria (ANES) 0-18 Drug form: l 23:03: INJ, ONCE, Stop date: 04/10/21 18:03:00 CDT propofol 2020-06 No Route: IV, Mem oria (ANES) 0-18 Drug form: l 23:03: INJ, ONCE, Stop date: 04/10/21 18:03:00 CDT lidocaine 2020-06 No Route: IV, Me moria (ANES) 0-18 Drug form: l 23:03: INJ, ONCE, Stop date: 04/10/21 18:03:00 CDT fentaNYL 2020-06 No Route: IV, Mem oria (ANES) 0-18 Drug form: l 23:03: INJ, ONCE, Stop date: 04/10/21 18:03:00 CDT propofol 2020-06 No Route: IV, Mem oria (ANES) 0-18 Drug form: l 23:03: INJ, ONCE, Stop date: 04/10/21 18:03:00 CDT lidocaine 2020-06 No Route: IV, Me moria (ANES) 0-18 Drug form: l 23:03: INJ, ONCE, Stop date: 04/10/21 18:03:00 CDT fentaNYL 2020-06 No Route: IV, Mem oria (ANES) 0-18 Drug form: l 23:03: INJ, ONCE, Stop date: 04/10/21 18:03:00 CDT propofol 2020-06 No Route: IV, Mem oria (ANES) 0-18 Drug form: l 23:03: INJ, ONCE, Stop date: 04/10/21 18:03:00 CDT lidocaine 2020-06 No Route: IV, Me moria (ANES) 0-18 Drug form: l 23:03: INJ, ONCE, Stop date: 04/10/21 18:03:00 CDT fentaNYL 2020-06 No Route: IV, Mem oria (ANES) 0-18 Drug form: l 23:03: INJ, ONCE, Stop date: 04/10/21 18:03:00 CDT propofol 2020-06 No Route: IV, Mem oria (ANES) 0-18 Drug form: l 23:03: INJ, ONCE, Stop date: 04/10/21 18:03:00 CDT ceFAZolin 2020-06 No Route: IV, Me moria (ANES) 0-18 Drug form: l 22:48: INJ, ONCE, Stop date: 04/10/21 17:48:00 CDT ceFAZolin 2020-06 No Route: IV, Me moria (ANES) 0-18 Drug form: l 22:48: INJ, ONCE, Stop date: 04/10/21 17:48:00 CDT ceFAZolin 2020-06 No Route: IV, Me moria (ANES) 0-18 Drug form: l 22:48: INJ, ONCE, Stop date: 04/10/21 17:48:00 CDT ceFAZolin 2020-06 No Route: IV, Me moria (ANES) 0-18 Drug form: l 22:48: INJ, ONCE, Stop date: 04/10/21 17:48:00 CDT ceFAZolin 2020-06 No Route: IV, Me moria (ANES) 0-18 Drug form: l 22:48: INJ, ONCE, Stop date: 04/10/21 17:48:00 CDT ceFAZolin 2020-06 No Route: IV, Me moria (ANES) 0-18 Drug form: l 22:48: INJ, ONCE, Stop date: 04/10/21 17:48:00 CDT ceFAZolin 2020-06 No Route: IV, Me moria (ANES) 0-18 Drug form: l 22:48: INJ, ONCE, Stop date: 04/10/21 17:48:00 CDT ceFAZolin 2020-06 No Route: IV, Me moria (ANES) 0-18 Drug form: l 22:48: INJ, ONCE, Stop date: 04/10/21 17:48:00 CDT ceFAZolin 2020-06 No Route: IV, Me moria (ANES) 0-18 Drug form: l 22:48: INJ, ONCE, Stop date: 04/10/21 17:48:00 CDT ceFAZolin 2020-06 No Route: IV, Me moria (ANES) 0-18 Drug form: l 22:48: INJ, ONCE, Stop date: 04/10/21 17:48:00 CDT ceFAZolin 2020-06 No Route: IV, Me moria (ANES) 0-18 Drug form: l 22:48: INJ, ONCE, Stop date: 04/10/21 17:48:00 CDT ceFAZolin 2020-06 No Route: IV, Me moria (ANES) 0-18 Drug form: l 22:48: INJ, ONCE, Stop date: 04/10/21 17:48:00 CDT ceFAZolin 2020-06 No Route: IV, Me moria (ANES) 0-18 Drug form: l 22:48: INJ, ONCE, Stop date: 04/10/21 17:48:00 CDT ceFAZolin 2020-06 No Route: IV, Me moria (ANES) 0-18 Drug form: l 22:48: INJ, ONCE, Stop date: 04/10/21 17:48:00 CDT ceFAZolin 2020-06 No Route: IV, Me moria (ANES) 0-18 Drug form: l 22:48: INJ, ONCE, Stop date: 04/10/21 17:48:00 CDT ceFAZolin 2020-06 No Route: IV, Me moria (ANES) 0-18 Drug form: l 22:48: INJ, ONCE, Stop date: 04/10/21 17:48:00 CDT ceFAZolin 2020-06 No Route: IV, Me moria (ANES) 0-18 Drug form: l 22:48: INJ, ONCE, Stop date: 04/10/21 17:48:00 CDT ceFAZolin 2020-06 No Route: IV, Me moria (ANES) 0-18 Drug form: l 22:48: INJ, ONCE, Stop date: 04/10/21 17:48:00 CDT ceFAZolin 2020-06 No Route: IV, Me moria (ANES) 0-18 Drug form: l 22:48: INJ, ONCE, Stop date: 04/10/21 17:48:00 CDT ceFAZolin 2020-06 No Route: IV, Me moria (ANES) 0-18 Drug form: l 22:48: INJ, ONCE, Stop date: 04/10/21 17:48:00 CDT ceFAZolin 2020-06 No Route: IV, Me moria (ANES) 0-18 Drug form: l 22:48: INJ, ONCE, Stop date: 04/10/21 17:48:00 CDT ceFAZolin 2020-06 No Route: IV, Me moria (ANES) 0-18 Drug form: l 22:48: INJ, ONCE, Stop date: 04/10/21 17:48:00 CDT ceFAZolin 2020-06 No Route: IV, Me moria (ANES) 0-18 Drug form: l 22:48: INJ, ONCE, Stop date: 04/10/21 17:48:00 CDT ceFAZolin 2020-06 No Route: IV, Me moria (ANES) 0-18 Drug form: l 22:48: INJ, ONCE, Stop date: 04/10/21 17:48:00 CDT ceFAZolin 2020-06 No Route: IV, Me moria (ANES) 0-18 Drug form: l 22:48: INJ, ONCE, Stop date: 04/10/21 17:48:00 CDT ceFAZolin 2020-06 No Route: IV, Me moria (ANES) 0-18 Drug form: l 22:48: INJ, ONCE, Stop date: 04/10/21 17:48:00 CDT ceFAZolin 2020-06 No Route: IV, Me moria (ANES) 0-18 Drug form: l 22:48: INJ, ONCE, Stop date: 04/10/21 17:48:00 CDT ceFAZolin 2020-06 No Route: IV, Me moria (ANES) 0-18 Drug form: l 22:48: INJ, ONCE, Stop date: 04/10/21 17:48:00 CDT ceFAZolin 2020-06 No Route: IV, Me moria (ANES) 0-18 Drug form: l 22:48: INJ, ONCE, Stop date: 04/10/21 17:48:00 CDT ceFAZolin 2020-06 No Route: IV, Me moria (ANES) 0-18 Drug form: l 22:48: INJ, ONCE, Stop date: 04/10/21 17:48:00 CDT ceFAZolin 2020-06 No Route: IV, Me moria (ANES) 0-18 Drug form: l 22:48: INJ, ONCE, Stop date: 04/10/21 17:48:00 CDT ceFAZolin 2020-06 No Route: IV, Me moria (ANES) 0-18 Drug form: l 22:48: INJ, ONCE, Stop date: 04/10/21 17:48:00 CDT ceFAZolin 2020-06 No Route: IV, Me moria (ANES) 0-18 Drug form: l 22:48: INJ, ONCE, Stop date: 04/10/21 17:48:00 CDT ceFAZolin 2020-06 No Route: IV, Me moria (ANES) 0-18 Drug form: l 22:48: INJ, ONCE, Stop date: 04/10/21 17:48:00 CDT ceFAZolin 2020-06 No Route: IV, Me moria (ANES) 0-18 Drug form: l 22:48: INJ, ONCE, Stop date: 04/10/21 17:48:00 CDT ceFAZolin 2020-06 No Route: IV, Me moria (ANES) 0-18 Drug form: l 22:48: INJ, ONCE, Stop date: 04/10/21 17:48:00 CDT ceFAZolin 2020-06 No Route: IV, Me moria (ANES) 0-18 Drug form: l 22:48: INJ, ONCE, Stop date: 04/10/21 17:48:00 CDT ceFAZolin 2020-06 No Route: IV, Me moria (ANES) 0-18 Drug form: l 22:48: INJ, ONCE, Stop date: 04/10/21 17:48:00 CDT ceFAZolin 2020-06 No Route: IV, Me moria (ANES) 0-18 Drug form: l 22:48: INJ, ONCE, Stop date: 04/10/21 17:48:00 CDT ceFAZolin 2020-06 No Route: IV, Me moria (ANES) 0-18 Drug form: l 22:48: INJ, ONCE, Stop date: 04/10/21 17:48:00 CDT Flumazenil 2020-06 No Notes: Memor ia 0-18 (Same as: l 22:37: Romazicon) Naloxone 2020-06 No Notes: Memoria 0-18 Same as l 22:37: Narcan Ondansetron 2020-06 No Notes: [place] timbo 0-18 (Same as: l 22:37: Zofran) MEDICATION WASTE Product Size: 4 mg Product Wasted: ___ mg Calcium 2020-06 No 1,000 mL, Memor ia Chloride 0-18 Rate: 125 l 0.0014 22:37: ml/hr, Ran MEQ/ML / 00 Infuse Potassium over: 8 Chloride hr, Route: 0.004 IV, Dosing MEQ/ML / Weight Sodium 85.4 kg, Chloride Total 0.103 Volume: MEQ/ML / 1,000, Sodium Start Lactate date: 0.028 04/10/21 MEQ/ML 17:37:00 Injectable CDT, Solution Duration: 30 day, Stop date: 05/10/21 17:36:00 ROLLER HAND, BSA: 2.03 m2, 0 Labetalol 2020-06 No 10 mg, 2 [place] timbo 0-18 mL, Route: l 22:37: IVP, Drug form: INJ, Q5Min, Dosing Weight 85.4, kg, PRN Elevated BP, Start date: 04/10/21 17:37:00 CDT, Duration: 5 doses or times, Stop date: Limited # of times, 0 Ketorolac 2020-06 No 4 days Memor ia 0-18 l 22:37: MEDICATION WASTE Product Size: 30 mg Product Wasted: ___ mg Morphine 2020-06 No Notes: Memoria 0-18 (Same l 22:37: as:MORPhin e Sulfate) Hydromorpho 2020-06 No Notes: Sherman timbo ne 0-18 Same as l 22:37: Dilaudid Flumazenil 2021-1 No Notes: Memor ia 0-18 (Same as: l 22:37: Romazicon) [place] 00 Naloxone 2020-06 No Notes: Memoria 0-18 Same as l 22:37: Narcan Ondansetron 2020-06 No Notes: [place] timbo 0-18 (Same as: l 22:37: Zofran) [place] 00 MEDICATION WASTE Product Size: 4 mg Product Wasted: ___ mg Calcium 2020-06 No 1,000 mL, Memor ia Chloride 0-18 Rate: 125 l 0.0014 22:37: ml/hr, [place] MEQ/ML / 00 Infuse Potassium over: 8 Chloride hr, Route: 0.004 IV, Dosing MEQ/ML / Weight Sodium 85.4 kg, Chloride Total 0.103 Volume: MEQ/ML / 1,000, Sodium Start Lactate date: 0.028 04/10/21 MEQ/ML 17:37:00 Injectable CDT, Solution Duration: 30 day, Stop date: 05/10/21 17:36:00 ROLLER HAND, BSA: 2.03 m2, 0 Labetalol 2020-06 No 10 mg, 2 Sherman itmbo 0-18 mL, Route: l 22:37: IVP, Drug form: INJ, Q5Min, Dosing Weight 85.4, kg, PRN Elevated BP, Start date: 04/10/21 17:37:00 CDT, Duration: 5 doses or times, Stop date: Limited # of times, 0 Ketorolac 2020-06 No 4 days Memor ia 0-18 l 22:37: MEDICATION WASTE Product Size: 30 mg Product Wasted: ___ mg Morphine 2020-06 No Notes: Memoria 0-18 (Same l 22:37: as:MORPhin e Sulfate) Hydromorpho 2020-06 No Notes: [place] timbo ne 0-18 Same as l 22:37: Dilaudid Flumazenil 2020-06 No Notes: Memor ia 0-18 (Same as: l 22:37: Romazicon) [place] 00 Naloxone 2020-06 No Notes: Memoria 0-18 Same as l 22:37: Narcan Ondansetron 2020-06 No Notes: [place] timbo 0-18 (Same as: l 22:37: Zofran) [place] 00 MEDICATION WASTE Product Size: 4 mg Product Wasted: ___ mg Calcium 2020-06 No 1,000 mL, Memor ia Chloride 0-18 Rate: 125 l 0.0014 22:37: ml/hr, Ran MEQ/ML / 00 Infuse Potassium over: 8 Chloride hr, Route: 0.004 IV, Dosing MEQ/ML / Weight Sodium 85.4 kg, Chloride Total 0.103 Volume: MEQ/ML / 1,000, Sodium Start Lactate date: 0.028 04/10/21 MEQ/ML 17:37:00 Injectable CDT, Solution Duration: 30 day, Stop date: 05/10/21 17:36:00 ROLLER HAND, BSA: 2.03 m2, 0 Labetalol 2020-06 No 10 mg, 2 [place] timbo 0-18 mL, Route: l 22:37: IVP, Drug form: INJ, Q5Min, Dosing Weight 85.4, kg, PRN Elevated BP, Start date: 04/10/21 17:37:00 CDT, Duration: 5 doses or times, Stop date: Limited # of times, 0 Ketorolac 2020-06 No 4 days Memor ia 0-18 l 22:37: MEDICATION WASTE Product Size: 30 mg Product Wasted: ___ mg Morphine 2020-06 No Notes: Memoria 0-18 (Same l 22:37: as:MORPhin e Sulfate) Hydromorpho 2020-06 No Notes: [place] timbo ne 0-18 Same as l 22:37: Dilaudid Flumazenil 2020-06 No Notes: Memor ia 0-18 (Same as: l 22:37: Romazicon) Naloxone 2020-06 No Notes: Memoria 0-18 Same as l 22:37: Narcan Ondansetron 2020-06 No Notes: [place] timbo 0-18 (Same as: l 22:37: Zofran) MEDICATION WASTE Product Size: 4 mg Product Wasted: ___ mg Calcium 2020-06 No 1,000 mL, Memor ia Chloride 0-18 Rate: 125 l 0.0014 22:37: ml/hr, Ran MEQ/ML / 00 Infuse Potassium over: 8 Chloride hr, Route: 0.004 IV, Dosing MEQ/ML / Weight Sodium 85.4 kg, Chloride Total 0.103 Volume: MEQ/ML / 1,000, Sodium Start Lactate date: 0.028 04/10/21 MEQ/ML 17:37:00 Injectable CDT, Solution Duration: 30 day, Stop date: 05/10/21 17:36:00 ROLLER HAND, BSA: 2.03 m2, 0 Labetalol 2020-06 No 10 mg, 2 [place] timbo 0-18 mL, Route: l 22:37: IVP, Drug form: INJ, Q5Min, Dosing Weight 85.4, kg, PRN Elevated BP, Start date: 04/10/21 17:37:00 CDT, Duration: 5 doses or times, Stop date: Limited # of times, 0 Ketorolac 2020-06 No 4 days Memor ia 0-18 l 22:37: MEDICATION [place] 00 WASTE Product Size: 30 mg Product Wasted: ___ mg Morphine 2020-06 No Notes: Memoria 0-18 (Same l 22:37: as:MORPhin Ran 00 e Sulfate) Hydromorpho 2020-06 No Notes: [place] timbo ne 0-18 Same as l 22:37: Dilaudid Flumazenil 2020-06 No Notes: Memor ia 0-18 (Same as: l 22:37: Romazicon) [place] 00 Naloxone 2020-06 No Notes: Memoria 0-18 Same as l 22:37: Narcan [place] 00 Ondansetron 2020-06 No Notes: [place] timbo 0-18 (Same as: l 22:37: Zofran) [place] 00 MEDICATION WASTE Product Size: 4 mg Product Wasted: ___ mg Calcium 2020-06 No 1,000 mL, Memor ia Chloride 0-18 Rate: 125 l 0.0014 22:37: ml/hr, Ran MEQ/ML / 00 Infuse Potassium over: 8 Chloride hr, Route: 0.004 IV, Dosing MEQ/ML / Weight Sodium 85.4 kg, Chloride Total 0.103 Volume: MEQ/ML / 1,000, Sodium Start Lactate date: 0.028 04/10/21 MEQ/ML 17:37:00 Injectable CDT, Solution Duration: 30 day, Stop date: 05/10/21 17:36:00 ROLLER HAND, BSA: 2.03 m2, 0 Labetalol 2020-06 No 10 mg, 2 [place] timbo 0-18 mL, Route: l 22:37: IVP, Drug form: INJ, Q5Min, Dosing Weight 85.4, kg, PRN Elevated BP, Start date: 04/10/21 17:37:00 CDT, Duration: 5 doses or times, Stop date: Limited # of times, 0 Ketorolac 2020-06 No 4 days Memor ia 0-18 l 22:37: MEDICATION WASTE Product Size: 30 mg Product Wasted: ___ mg Morphine 2020-06 No Notes: Memoria 0-18 (Same l 22:37: as:MORPhin e Sulfate) Hydromorpho 2020-06 No Notes: [place] timbo ne 0-18 Same as l 22:37: Dilaudid Flumazenil 2020-06 No Notes: Memor ia 0-18 (Same as: l 22:37: Romazicon) Naloxone 2020-06 No Notes: Memoria 0-18 Same as l 22:37: Narcan Ondansetron 2020-06 No Notes: Sherman timbo 0-18 (Same as: l 22:37: Zofran) MEDICATION WASTE Product Size: 4 mg Product Wasted: ___ mg Calcium 2020-06 No 1,000 mL, Memor ia Chloride 0-18 Rate: 125 l 0.0014 22:37: ml/hr, [place] MEQ/ML / 00 Infuse Potassium over: 8 Chloride hr, Route: 0.004 IV, Dosing MEQ/ML / Weight Sodium 85.4 kg, Chloride Total 0.103 Volume: MEQ/ML / 1,000, Sodium Start Lactate date: 0.028 04/10/21 MEQ/ML 17:37:00 Injectable CDT, Solution Duration: 30 day, Stop date: 05/10/21 17:36:00 ROLLER HAND, BSA: 2.03 m2, 0 Labetalol 2020-06 No 10 mg, 2 Sherman timbo 0-18 mL, Route: l 22:37: IVP, Drug form: INJ, Q5Min, Dosing Weight 85.4, kg, PRN Elevated BP, Start date: 04/10/21 17:37:00 CDT, Duration: 5 doses or times, Stop date: Limited # of times, 0 Ketorolac 2020-06 No 4 days Memor ia 0-18 l 22:37: MEDICATION Ran 00 WASTE Product Size: 30 mg Product Wasted: ___ mg Morphine 2020-06 No Notes: Memoria 0-18 (Same l 22:37: as:MORPhin e Sulfate) Hydromorpho 2020-06 No Notes: Sherman timbo ne 0-18 Same as l 22:37: Dilaudid Flumazenil 2020-06 No Notes: Memor ia 0-18 (Same as: l 22:37: Romazicon) Naloxone 2020-06 No Notes: Memoria 0-18 Same as l 22:37: Narcan Ondansetron 2020-06 No Notes: Sherman timbo 0-18 (Same as: l 22:37: Zofran) MEDICATION WASTE Product Size: 4 mg Product Wasted: ___ mg Calcium 2020-06 No 1,000 mL, Memor ia Chloride 0-18 Rate: 125 l 0.0014 22:37: ml/hr, Ran MEQ/ML / 00 Infuse Potassium over: 8 Chloride hr, Route: 0.004 IV, Dosing MEQ/ML / Weight Sodium 85.4 kg, Chloride Total 0.103 Volume: MEQ/ML / 1,000, Sodium Start Lactate date: 0.028 04/10/21 MEQ/ML 17:37:00 Injectable CDT, Solution Duration: 30 day, Stop date: 05/10/21 17:36:00 ROLLER HAND, BSA: 2.03 m2, 0 Labetalol 2020-06 No 10 mg, 2 Sherman timbo 0-18 mL, Route: l 22:37: IVP, Drug form: INJ, Q5Min, Dosing Weight 85.4, kg, PRN Elevated BP, Start date: 04/10/21 17:37:00 CDT, Duration: 5 doses or times, Stop date: Limited # of times, 0 Ketorolac 2020-06 No 4 days Memor ia 0-18 l 22:37: MEDICATION WASTE Product Size: 30 mg Product Wasted: ___ mg Morphine 2020-06 No Notes: Memoria 0-18 (Same l 22:37: as:MORPhin e Sulfate) Hydromorpho 2020-06 No Notes: Sherman timbo ne 0-18 Same as l 22:37: Dilaudid Flumazenil 2020-06 No Notes: Memor ia 0-18 (Same as: l 22:37: Romazicon) Naloxone 2020-06 No Notes: Memoria 0-18 Same as l 22:37: Narcan Ondansetron 2020-06 No Notes: Sherman timbo 0-18 (Same as: l 22:37: Zofran) MEDICATION WASTE Product Size: 4 mg Product Wasted: ___ mg Calcium 2020-06 No 1,000 mL, Memor ia Chloride 0-18 Rate: 125 l 0.0014 22:37: ml/hr, MEQ/ML / Infuse Potassium over: 8 Chloride hr, Route: 0.004 IV, Dosing MEQ/ML / Weight Sodium 85.4 kg, Chloride Total 0.103 Volume: MEQ/ML / 1,000, Sodium Start Lactate date: 0.028 04/10/21 MEQ/ML 17:37:00 Injectable CDT, Solution Duration: 30 day, Stop date: 05/10/21 17:36:00 ROLLER HAND, BSA: 2.03 m2, 0 Labetalol 2020-06 No 10 mg, 2 Sherman timbo 0-18 mL, Route: l 22:37: IVP, Drug form: INJ, Q5Min, Dosing Weight 85.4, kg, PRN Elevated BP, Start date: 04/10/21 17:37:00 CDT, Duration: 5 doses or times, Stop date: Limited # of times, 0 Ketorolac 2020-06 No 4 days Memor ia 0-18 l 22:37: MEDICATION Ran 00 WASTE Product Size: 30 mg Product Wasted: ___ mg Morphine 2020-06 No Notes: Memoria 0-18 (Same l 22:37: as:MORPhin [place] 00 e Sulfate) Hydromorpho 2020-06 No Notes: Sherman timbo ne 0-18 Same as l 22:37: Dilaudid Flumazenil 2020-06 No Notes: Memor ia 0-18 (Same as: l 22:37: Romazicon) Ran 00 Naloxone 2020-06 No Notes: Memoria 0-18 Same as l 22:37: Narcan Ondansetron 2020-06 No Notes: Sherman timbo 0-18 (Same as: l 22:37: Zofran) MEDICATION WASTE Product Size: 4 mg Product Wasted: ___ mg Calcium 2020-06 No 1,000 mL, Mem[facility] ia Chloride 0-18 Rate: 125 l 0.0014 22:37: ml/hr, [place] MEQ/ML / 00 Infuse Potassium over: 8 Chloride hr, Route: 0.004 IV, Dosing MEQ/ML / Weight Sodium 85.4 kg, Chloride Total 0.103 Volume: MEQ/ML / 1,000, Sodium Start Lactate date: 0.028 04/10/21 MEQ/ML 17:37:00 Injectable CDT, Solution Duration: 30 day, Stop date: 05/10/21 17:36:00 ROLLER HAND, BSA: 2.03 m2, 0 Labetalol 2020-06 No 10 mg, 2 Sherman timbo 0-18 mL, Route: l 22:37: IVP, Drug form: INJ, Q5Min, Dosing Weight 85.4, kg, PRN Elevated BP, Start date: 04/10/21 17:37:00 CDT, Duration: 5 doses or times, Stop date: Limited # of times, 0 Ketorolac 2020-06 No 4 days Memor ia 0-18 l 22:37: MEDICATION [place] 00 WASTE Product Size: 30 mg Product Wasted: ___ mg Morphine 2020-06 No Notes: Memoria 0-18 (Same l 22:37: as:MORPhin [place] 00 e Sulfate) Hydromorpho 2020-06 No Notes: Sherman timbo ne 0-18 Same as l 22:37: Dilaudid Flumazenil 2020-06 No Notes: Memor ia 0-18 (Same as: l 22:37: Romazicon) Naloxone 2020-06 No Notes: [facility] 0-18 Same as l 22:37: Narcan Ondansetron 2020-06 No Notes: Sherman timbo 0-18 (Same as: l 22:37: Zofran) MEDICATION WASTE Product Size: 4 mg Product Wasted: ___ mg Calcium 2020-06 No 1,000 mL, [facility] Chloride 0-18 Rate: 125 l 0.0014 22:37: ml/hr, [place] MEQ/ML / 00 Infuse Potassium over: 8 Chloride hr, Route: 0.004 IV, Dosing MEQ/ML / Weight Sodium 85.4 kg, Chloride Total 0.103 Volume: MEQ/ML / 1,000, Sodium Start Lactate date: 0.028 04/10/21 MEQ/ML 17:37:00 Injectable CDT, Solution Duration: 30 day, Stop date: 05/10/21 17:36:00 ROLLER HAND, BSA: 2.03 m2, 0 Labetalol 2020-06 No 10 mg, 2 Sherman timbo 0-18 mL, Route: l 22:37: IVP, Drug form: INJ, Q5Min, Dosing Weight 85.4, kg, PRN Elevated BP, Start date: 04/10/21 17:37:00 CDT, Duration: 5 doses or times, Stop date: Limited # of times, 0 Ketorolac 2020-06 No 4 days [facility] 0-18 l 22:37: MEDICATION WASTE Product Size: 30 mg Product Wasted: ___ mg Morphine 2020-06 No Notes: [facility]oria 0-18 (Same l 22:37: as:MORPhin e Sulfate) Hydromorpho 2020-06 No Notes: Sherman timbo ne 0-18 Same as l 22:37: Dilaudid Flumazenil 2020-06 No Notes: [facility] 0-18 (Same as: l 22:37: Romazicon) Ran 00 Naloxone 2020-06 No Notes: [facility] 0-18 Same as l 22:37: Narcan Ondansetron 2020-06 No Notes: Sherman timbo 0-18 (Same as: l 22:37: Zofran) Ran 00 MEDICATION WASTE Product Size: 4 mg Product Wasted: ___ mg Calcium 2020-06 No 1,000 mL, [facility] Chloride 0-18 Rate: 125 l 0.0014 22:37: ml/hr, [place] MEQ/ML / 00 Infuse Potassium over: 8 Chloride hr, Route: 0.004 IV, Dosing MEQ/ML / Weight Sodium 85.4 kg, Chloride Total 0.103 Volume: MEQ/ML / 1,000, Sodium Start Lactate date: 0.028 04/10/21 MEQ/ML 17:37:00 Injectable CDT, Solution Duration: 30 day, Stop date: 05/10/21 17:36:00 ROLLER HAND, BSA: 2.03 m2, 0 Labetalol 2020-06 No 10 mg, 2 Sherman timbo 0-18 mL, Route: l 22:37: IVP, Drug form: INJ, Q5Min, Dosing Weight 85.4, kg, PRN Elevated BP, Start date: 04/10/21 17:37:00 CDT, Duration: 5 doses or times, Stop date: Limited # of times, 0 Ketorolac 2020-06 No 4 days [facility] 0-18 l 22:37: MEDICATION WASTE Product Size: 30 mg Product Wasted: ___ mg Morphine 2020-06 No Notes: [facility]oria 0-18 (Same l 22:37: as:MORPhin e Sulfate) Hydromorpho 2020-06 No Notes: Sherman timbo ne 0-18 Same as l 22:37: Dilaudid Flumazenil 2020-06 No Notes: [facility] 0-18 (Same as: l 22:37: Romazicon) Ran 00 Naloxone 2020-06 No Notes: [facility] 0-18 Same as l 22:37: Narcan Ondansetron 2020-06 No Notes: Sherman timbo 0-18 (Same as: l 22:37: Zofran) MEDICATION WASTE Product Size: 4 mg Product Wasted: ___ mg Calcium 2020-06 No 1,000 mL, [facility] Chloride 0-18 Rate: 125 l 0.0014 22:37: ml/hr, [place] MEQ/ML / 00 Infuse Potassium over: 8 Chloride hr, Route: 0.004 IV, Dosing MEQ/ML / Weight Sodium 85.4 kg, Chloride Total 0.103 Volume: MEQ/ML / 1,000, Sodium Start Lactate date: 0.028 04/10/21 MEQ/ML 17:37:00 Injectable CDT, Solution Duration: 30 day, Stop date: 05/10/21 17:36:00 ROLLER HAND, BSA: 2.03 m2, 0 Labetalol 2020-06 No 10 mg, 2 Sherman timbo 0-18 mL, Route: l 22:37: IVP, Drug form: INJ, Q5Min, Dosing Weight 85.4, kg, PRN Elevated BP, Start date: 04/10/21 17:37:00 CDT, Duration: 5 doses or times, Stop date: Limited # of times, 0 Ketorolac 2020-06 No 4 days [facility] 0-18 l 22:37: MEDICATION WASTE Product Size: 30 mg Product Wasted: ___ mg Morphine 2020-06 No Notes: [facility]oria 0-18 (Same l 22:37: as:MORPhin e Sulfate) Hydromorpho 2020-06 No Notes: Sherman timbo ne 0-18 Same as l 22:37: Dilaudid Flumazenil 2020-06 No Notes: [facility] 0-18 (Same as: l 22:37: Romazicon) Naloxone 2020-06 No Notes: [facility] 0-18 Same as l 22:37: Narcan Ondansetron 2020-06 No Notes: Sherman timbo 0-18 (Same as: l 22:37: Zofran) MEDICATION WASTE Product Size: 4 mg Product Wasted: ___ mg Calcium 2020-06 No 1,000 mL, [facility] Chloride 0-18 Rate: 125 l 0.0014 22:37: ml/hr, [place] MEQ/ML / 00 Infuse Potassium over: 8 Chloride hr, Route: 0.004 IV, Dosing MEQ/ML / Weight Sodium 85.4 kg, Chloride Total 0.103 Volume: MEQ/ML / 1,000, Sodium Start Lactate date: 0.028 04/10/21 MEQ/ML 17:37:00 Injectable CDT, Solution Duration: 30 day, Stop date: 05/10/21 17:36:00 ROLLER HAND, BSA: 2.03 m2, 0 Labetalol 2020-06 No 10 mg, 2 [place] timbo 0-18 mL, Route: l 22:37: IVP, Drug form: INJ, Q5Min, Dosing Weight 85.4, kg, PRN Elevated BP, Start date: 04/10/21 17:37:00 CDT, Duration: 5 doses or times, Stop date: Limited # of times, 0 Ketorolac 2020-06 No 4 days [facility] 0-18 l 22:37: MEDICATION [place] 00 WASTE Product Size: 30 mg Product Wasted: ___ mg Morphine 2020-06 No Notes: Memoria 0-18 (Same l 22:37: as:MORPhin [place] 00 e Sulfate) Hydromorpho 2020-06 No Notes: Sherman timbo ne 0-18 Same as l 22:37: Dilaudid Flumazenil 2020-06 No Notes: [facility] 0-18 (Same as: l 22:37: Romazicon) [place] 00 Naloxone 2020-06 No Notes: [facility] 0-18 Same as l 22:37: Narcan Ondansetron 2020-06 No Notes: Sherman timbo 0-18 (Same as: l 22:37: Zofran) [place] 00 MEDICATION WASTE Product Size: 4 mg Product Wasted: ___ mg Calcium 2020-06 No 1,000 mL, [facility] Chloride 0-18 Rate: 125 l 0.0014 22:37: ml/hr, [place] MEQ/ML / 00 Infuse Potassium over: 8 Chloride hr, Route: 0.004 IV, Dosing MEQ/ML / Weight Sodium 85.4 kg, Chloride Total 0.103 Volume: MEQ/ML / 1,000, Sodium Start Lactate date: 0.028 04/10/21 MEQ/ML 17:37:00 Injectable CDT, Solution Duration: 30 day, Stop date: 05/10/21 17:36:00 ROLLER HAND, BSA: 2.03 m2, 0 Labetalol 2020-06 No 10 mg, 2 [place] timbo 0-18 mL, Route: l 22:37: IVP, Drug form: INJ, Q5Min, Dosing Weight 85.4, kg, PRN Elevated BP, Start date: 04/10/21 17:37:00 CDT, Duration: 5 doses or times, Stop date: Limited # of times, 0 Ketorolac 2020-06 No 4 days [facility] 0-18 l 22:37: MEDICATION WASTE Product Size: 30 mg Product Wasted: ___ mg Morphine 2020-06 No Notes: [facility]oria 0-18 (Same l 22:37: as:MORPhin e Sulfate) Hydromorpho 2020-06 No Notes: Sherman timbo ne 0-18 Same as l 22:37: Dilaudid Flumazenil 2020-06 No Notes: [facility] 0-18 (Same as: l 22:37: Romazicon) Naloxone 2020-06 No Notes: [facility] 0-18 Same as l 22:37: Narcan Ondansetron 2020-06 No Notes: Sherman timbo 0-18 (Same as: l 22:37: Zofran) MEDICATION WASTE Product Size: 4 mg Product Wasted: ___ mg Calcium 2020-06 No 1,000 mL, [facility] Chloride 0-18 Rate: 125 l 0.0014 22:37: ml/hr, Ran MEQ/ML / 00 Infuse Potassium over: 8 Chloride hr, Route: 0.004 IV, Dosing MEQ/ML / Weight Sodium 85.4 kg, Chloride Total 0.103 Volume: MEQ/ML / 1,000, Sodium Start Lactate date: 0.028 04/10/21 MEQ/ML 17:37:00 Injectable CDT, Solution Duration: 30 day, Stop date: 05/10/21 17:36:00 ROLLER HAND, BSA: 2.03 m2, 0 Labetalol 2020-06 No 10 mg, 2 Sherman timbo 0-18 mL, Route: l 22:37: IVP, Drug form: INJ, Q5Min, Dosing Weight 85.4, kg, PRN Elevated BP, Start date: 04/10/21 17:37:00 CDT, Duration: 5 doses or times, Stop date: Limited # of times, 0 Ketorolac 2020-06 No 4 days [facility] 0-18 l 22:37: MEDICATION [place] 00 WASTE Product Size: 30 mg Product Wasted: ___ mg Morphine 2020-06 No Notes: Memoria 0-18 (Same l 22:37: as:MORPhin e Sulfate) Hydromorpho 2020-06 No Notes: Sherman timbo ne 0-18 Same as l 22:37: Dilaudid Flumazenil 2020-06 No Notes: [facility] 0-18 (Same as: l 22:37: Romazicon) Naloxone 2020-06 No Notes: [facility] 0-18 Same as l 22:37: Narcan Ondansetron 2020-06 No Notes: Sherman timbo 0-18 (Same as: l 22:37: Zofran) MEDICATION WASTE Product Size: 4 mg Product Wasted: ___ mg Calcium 2020-06 No 1,000 mL, [facility] Chloride 0-18 Rate: 125 l 0.0014 22:37: ml/hr, [place] MEQ/ML / 00 Infuse Potassium over: 8 Chloride hr, Route: 0.004 IV, Dosing MEQ/ML / Weight Sodium 85.4 kg, Chloride Total 0.103 Volume: MEQ/ML / 1,000, Sodium Start Lactate date: 0.028 04/10/21 MEQ/ML 17:37:00 Injectable CDT, Solution Duration: 30 day, Stop date: 05/10/21 17:36:00 ROLLER HAND, BSA: 2.03 m2, 0 Labetalol 2020-06 No 10 mg, 2 Sherman timbo 0-18 mL, Route: l 22:37: IVP, Drug form: INJ, Q5Min, Dosing Weight 85.4, kg, PRN Elevated BP, Start date: 04/10/21 17:37:00 CDT, Duration: 5 doses or times, Stop date: Limited # of times, 0 Ketorolac 2020-06 No 4 days [facility] 0-18 l 22:37: MEDICATION [place] 00 WASTE Product Size: 30 mg Product Wasted: ___ mg Morphine 2020-06 No Notes: [facility]oria 0-18 (Same l 22:37: as:MORPhin e Sulfate) Hydromorpho 2020-06 No Notes: Sherman timbo ne 0-18 Same as l 22:37: Dilaudid Flumazenil 2020-06 No Notes: [facility] 0-18 (Same as: l 22:37: Romazicon) Naloxone 2020-06 No Notes: [facility] 0-18 Same as l 22:37: Narcan Ondansetron 2020-06 No Notes: Sherman timbo 0-18 (Same as: l 22:37: Zofran) MEDICATION WASTE Product Size: 4 mg Product Wasted: ___ mg Calcium 2020-06 No 1,000 mL, [facility] Chloride 0-18 Rate: 125 l 0.0014 22:37: ml/hr, MEQ/ML / Infuse Potassium over: 8 Chloride hr, Route: 0.004 IV, Dosing MEQ/ML / Weight Sodium 85.4 kg, Chloride Total 0.103 Volume: MEQ/ML / 1,000, Sodium Start Lactate date: 0.028 04/10/21 MEQ/ML 17:37:00 Injectable CDT, Solution Duration: 30 day, Stop date: 05/10/21 17:36:00 ROLLER HAND, BSA: 2.03 m2, 0 Labetalol 2020-06 No 10 mg, 2 Sherman timbo 0-18 mL, Route: l 22:37: IVP, Drug form: INJ, Q5Min, Dosing Weight 85.4, kg, PRN Elevated BP, Start date: 04/10/21 17:37:00 CDT, Duration: 5 doses or times, Stop date: Limited # of times, 0 Ketorolac 2020-06 No 4 days [facility] 0-18 l 22:37: MEDICATION [place] 00 WASTE Product Size: 30 mg Product Wasted: ___ mg Morphine 2020-06 No Notes: [facility]oria 0-18 (Same l 22:37: as:MORPhin e Sulfate) Hydromorpho 2020-06 No Notes: Sherman timbo ne 0-18 Same as l 22:37: Dilaudid Flumazenil 2020-06 No Notes: [facility] 0-18 (Same as: l 22:37: Romazicon) Naloxone 2020-06 No Notes: [facility] 0-18 Same as l 22:37: Narcan Ondansetron 2020-06 No Notes: Sherman timbo 0-18 (Same as: l 22:37: Zofran) MEDICATION WASTE Product Size: 4 mg Product Wasted: ___ mg Calcium 2020-06 No 1,000 mL, [facility] Chloride 0-18 Rate: 125 l 0.0014 22:37: ml/hr, [place] MEQ/ML / 00 Infuse Potassium over: 8 Chloride hr, Route: 0.004 IV, Dosing MEQ/ML / Weight Sodium 85.4 kg, Chloride Total 0.103 Volume: MEQ/ML / 1,000, Sodium Start Lactate date: 0.028 04/10/21 MEQ/ML 17:37:00 Injectable CDT, Solution Duration: 30 day, Stop date: 05/10/21 17:36:00 ROLLER HAND, BSA: 2.03 m2, 0 Labetalol 2020-06 No 10 mg, 2 Sherman timbo 0-18 mL, Route: l 22:37: IVP, Drug form: INJ, Q5Min, Dosing Weight 85.4, kg, PRN Elevated BP, Start date: 04/10/21 17:37:00 CDT, Duration: 5 doses or times, Stop date: Limited # of times, 0 Ketorolac 2020-06 No 4 days [facility] 0-18 l 22:37: MEDICATION WASTE Product Size: 30 mg Product Wasted: ___ mg Morphine 2020-06 No Notes: [facility]oria 0-18 (Same l 22:37: as:MORPhin e Sulfate) Hydromorpho 2021-1 No Notes: Sherman timbo ne 0-18 Same as l 22:37: Dilaudid Flumazenil 2020-06 No Notes: [facility] 0-18 (Same as: l 22:37: Romazicon) [place] 00 Naloxone 2020-06 No Notes: [facility]oria 0-18 Same as l 22:37: Narcan Ondansetron 2020-06 No Notes: Sherman timbo 0-18 (Same as: l 22:37: Zofran) [place] 00 MEDICATION WASTE Product Size: 4 mg Product Wasted: ___ mg Calcium 2020-06 No 1,000 mL, [facility] Chloride 0-18 Rate: 125 l 0.0014 22:37: ml/hr, [place] MEQ/ML / 00 Infuse Potassium over: 8 Chloride hr, Route: 0.004 IV, Dosing MEQ/ML / Weight Sodium 85.4 kg, Chloride Total 0.103 Volume: MEQ/ML / 1,000, Sodium Start Lactate date: 0.028 04/10/21 MEQ/ML 17:37:00 Injectable CDT, Solution Duration: 30 day, Stop date: 05/10/21 17:36:00 ROLLER HAND, BSA: 2.03 m2, 0 Labetalol 2020-06 No 10 mg, 2 Sherman timbo 0-18 mL, Route: l 22:37: IVP, Drug form: INJ, Q5Min, Dosing Weight 85.4, kg, PRN Elevated BP, Start date: 04/10/21 17:37:00 CDT, Duration: 5 doses or times, Stop date: Limited # of times, 0 Ketorolac 2020-06 No 4 days [facility] 0-18 l 22:37: MEDICATION WASTE Product Size: 30 mg Product Wasted: ___ mg Morphine 2020-06 No Notes: [facility]oria 0-18 (Same l 22:37: as:MORPhin e Sulfate) Hydromorpho 2020-06 No Notes: Sherman timbo ne 0-18 Same as l 22:37: Dilaudid Flumazenil 2020-06 No Notes: [facility] 0-18 (Same as: l 22:37: Romazicon) Ran 00 Naloxone 2020-06 No Notes: [facility] 0-18 Same as l 22:37: Narcan Ondansetron 2020-06 No Notes: Sherman timbo 0-18 (Same as: l 22:37: Zofran) MEDICATION WASTE Product Size: 4 mg Product Wasted: ___ mg Calcium 2020-06 No 1,000 mL, [facility] Chloride 0-18 Rate: 125 l 0.0014 22:37: ml/hr, [place] MEQ/ML / 00 Infuse Potassium over: 8 Chloride hr, Route: 0.004 IV, Dosing MEQ/ML / Weight Sodium 85.4 kg, Chloride Total 0.103 Volume: MEQ/ML / 1,000, Sodium Start Lactate date: 0.028 04/10/21 MEQ/ML 17:37:00 Injectable CDT, Solution Duration: 30 day, Stop date: 05/10/21 17:36:00 ROLLER HAND, BSA: 2.03 m2, 0 Labetalol 2020-06 No 10 mg, 2 Sherman timbo 0-18 mL, Route: l 22:37: IVP, Drug form: INJ, Q5Min, Dosing Weight 85.4, kg, PRN Elevated BP, Start date: 04/10/21 17:37:00 CDT, Duration: 5 doses or times, Stop date: Limited # of times, 0 Ketorolac 2020-06 No 4 days [facility] 0-18 l 22:37: MEDICATION WASTE Product Size: 30 mg Product Wasted: ___ mg Morphine 2020-06 No Notes: [facility] 0-18 (Same l 22:37: as:MORPhin e Sulfate) Hydromorpho 2020-06 No Notes: Sherman timbo ne 0-18 Same as l 22:37: Dilaudid Flumazenil 2020-06 No Notes: [facility] 0-18 (Same as: l 22:37: Romazicon) Naloxone 2020-06 No Notes: [facility] 0-18 Same as l 22:37: Narcan Ondansetron 2020-06 No Notes: Sherman timbo 0-18 (Same as: l 22:37: Zofran) [place] 00 MEDICATION WASTE Product Size: 4 mg Product Wasted: ___ mg Calcium 2020-06 No 1,000 mL, [facility] Chloride 0-18 Rate: 125 l 0.0014 22:37: ml/hr, Ran MEQ/ML / 00 Infuse Potassium over: 8 Chloride hr, Route: 0.004 IV, Dosing MEQ/ML / Weight Sodium 85.4 kg, Chloride Total 0.103 Volume: MEQ/ML / 1,000, Sodium Start Lactate date: 0.028 04/10/21 MEQ/ML 17:37:00 Injectable CDT, Solution Duration: 30 day, Stop date: 05/10/21 17:36:00 ROLLER HAND, BSA: 2.03 m2, 0 Labetalol 2020-06 No 10 mg, 2 Sherman timbo 0-18 mL, Route: l 22:37: IVP, Drug Ran 00 form: INJ, Q5Min, Dosing Weight 85.4, kg, PRN Elevated BP, Start date: 04/10/21 17:37:00 CDT, Duration: 5 doses or times, Stop date: Limited # of times, 0 Ketorolac 2020-06 No 4 days [facility] 0-18 l 22:37: MEDICATION [place] 00 WASTE Product Size: 30 mg Product Wasted: ___ mg Morphine 2020-06 No Notes: [facility] 0-18 (Same l 22:37: as:MORPhin e Sulfate) Hydromorpho 2020-06 No Notes: [place] timbo ne 0-18 Same as l 22:37: Dilaudid Flumazenil 2020-06 No Notes: [facility] 0-18 (Same as: l 22:37: Romazicon) Naloxone 2020-06 No Notes: [facility] 0-18 Same as l 22:37: Narcan Ondansetron 2020-06 No Notes: Sherman timbo 0-18 (Same as: l 22:37: Zofran) 00 MEDICATION WASTE Product Size: 4 mg Product Wasted: ___ mg Calcium 2020-06 No 1,000 mL, [facility] Chloride 0-18 Rate: 125 l 0.0014 22:37: ml/hr, [place] MEQ/ML / 00 Infuse Potassium over: 8 Chloride hr, Route: 0.004 IV, Dosing MEQ/ML / Weight Sodium 85.4 kg, Chloride Total 0.103 Volume: MEQ/ML / 1,000, Sodium Start Lactate date: 0.028 04/10/21 MEQ/ML 17:37:00 Injectable CDT, Solution Duration: 30 day, Stop date: 05/10/21 17:36:00 ROLLER HAND, BSA: 2.03 m2, 0 Labetalol 2020-06 No 10 mg, 2 [place] timbo 0-18 mL, Route: l 22:37: IVP, Drug form: INJ, Q5Min, Dosing Weight 85.4, kg, PRN Elevated BP, Start date: 04/10/21 17:37:00 CDT, Duration: 5 doses or times, Stop date: Limited # of times, 0 Ketorolac 2020-06 No 4 days [facility] 0-18 l 22:37: MEDICATION [place] 00 WASTE Product Size: 30 mg Product Wasted: ___ mg Morphine 2020-06 No Notes: [facility] 0-18 (Same l 22:37: as:MORPhin e Sulfate) Hydromorpho 2020-06 No Notes: [place] timbo ne 0-18 Same as l 22:37: Dilaudid Flumazenil 2020-06 No Notes: [facility] 0-18 (Same as: l 22:37: Romazicon) Naloxone 2020-06 No Notes: [facility] 0-18 Same as l 22:37: Narcan Ondansetron 2020-06 No Notes: [place] timbo 0-18 (Same as: l 22:37: Zofran) MEDICATION WASTE Product Size: 4 mg Product Wasted: ___ mg Calcium 2020-06 No 1,000 mL, [facility] Chloride 0-18 Rate: 125 l 0.0014 22:37: ml/hr, Ran MEQ/ML / 00 Infuse Potassium over: 8 Chloride hr, Route: 0.004 IV, Dosing MEQ/ML / Weight Sodium 85.4 kg, Chloride Total 0.103 Volume: MEQ/ML / 1,000, Sodium Start Lactate date: 0.028 04/10/21 MEQ/ML 17:37:00 Injectable CDT, Solution Duration: 30 day, Stop date: 05/10/21 17:36:00 ROLLER HAND, BSA: 2.03 m2, 0 Labetalol 2020-06 No 10 mg, 2 [place] timbo 0-18 mL, Route: l 22:37: IVP, Drug form: INJ, Q5Min, Dosing Weight 85.4, kg, PRN Elevated BP, Start date: 04/10/21 17:37:00 CDT, Duration: 5 doses or times, Stop date: Limited # of times, 0 Ketorolac 2020-06 No 4 days [facility] 0-18 l 22:37: MEDICATION [place] 00 WASTE Product Size: 30 mg Product Wasted: ___ mg Morphine 2020-06 No Notes: [facility] 0-18 (Same l 22:37: as:MORPhin e Sulfate) Hydromorpho 2020-06 No Notes: Sherman timbo ne 0-18 Same as l 22:37: Dilaudid Flumazenil 2020-06 No Notes: [facility] 0-18 (Same as: l 22:37: Romazicon) Naloxone 2020-06 No Notes: [facility] 0-18 Same as l 22:37: Narcan Ondansetron 2020-06 No Notes: [place] timbo 0-18 (Same as: l 22:37: Zofran) MEDICATION WASTE Product Size: 4 mg Product Wasted: ___ mg Calcium 2020-06 No 1,000 mL, [facility] Chloride 0-18 Rate: 125 l 0.0014 22:37: ml/hr, MEQ/ML / 00 Infuse Potassium over: 8 Chloride hr, Route: 0.004 IV, Dosing MEQ/ML / Weight Sodium 85.4 kg, Chloride Total 0.103 Volume: MEQ/ML / 1,000, Sodium Start Lactate date: 0.028 04/10/21 MEQ/ML 17:37:00 Injectable CDT, Solution Duration: 30 day, Stop date: 05/10/21 17:36:00 ROLLER HAND, BSA: 2.03 m2, 0 Labetalol 2020-06 No 10 mg, 2 [place] timbo 0-18 mL, Route: l 22:37: IVP, Drug form: INJ, Q5Min, Dosing Weight 85.4, kg, PRN Elevated BP, Start date: 04/10/21 17:37:00 CDT, Duration: 5 doses or times, Stop date: Limited # of times, 0 Ketorolac 2020-06 No 4 days [facility] 0-18 l 22:37: MEDICATION [place] 00 WASTE Product Size: 30 mg Product Wasted: ___ mg Morphine 2020-06 No Notes: [facility] 0-18 (Same l 22:37: as:MORPhin e Sulfate) Hydromorpho 2020-06 No Notes: Sherman timbo ne 0-18 Same as l 22:37: Dilaudid Flumazenil 2020-06 No Notes: [facility] 0-18 (Same as: l 22:37: Romazicon) Naloxone 2020-06 No Notes: [facility] 0-18 Same as l 22:37: Narcan Ondansetron 2020-06 No Notes: [place] timbo 0-18 (Same as: l 22:37: Zofran) MEDICATION WASTE Product Size: 4 mg Product Wasted: ___ mg Calcium 2020-06 No 1,000 mL, [facility] Chloride 0-18 Rate: 125 l 0.0014 22:37: ml/hr, MEQ/ML / 00 Infuse Potassium over: 8 Chloride hr, Route: 0.004 IV, Dosing MEQ/ML / Weight Sodium 85.4 kg, Chloride Total 0.103 Volume: MEQ/ML / 1,000, Sodium Start Lactate date: 0.028 04/10/21 MEQ/ML 17:37:00 Injectable CDT, Solution Duration: 30 day, Stop date: 05/10/21 17:36:00 ROLLER HAND, BSA: 2.03 m2, 0 Labetalol 2020-06 No 10 mg, 2 [place] timbo 0-18 mL, Route: l 22:37: IVP, Drug form: INJ, Q5Min, Dosing Weight 85.4, kg, PRN Elevated BP, Start date: 04/10/21 17:37:00 CDT, Duration: 5 doses or times, Stop date: Limited # of times, 0 Ketorolac 2020-06 No 4 days [facility] 0-18 l 22:37: MEDICATION [place] 00 WASTE Product Size: 30 mg Product Wasted: ___ mg Morphine 2020-06 No Notes: [facility] 0-18 (Same l 22:37: as:MORPhin e Sulfate) Hydromorpho 2020-06 No Notes: [place] timbo ne 0-18 Same as l 22:37: Dilaudid Flumazenil 2020-06 No Notes: [facility] 0-18 (Same as: l 22:37: Romazicon) Naloxone 2020-06 No Notes: [facility] 0-18 Same as l 22:37: Narcan Ondansetron 2020-06 No Notes: [place] timbo 0-18 (Same as: l 22:37: Zofran) MEDICATION WASTE Product Size: 4 mg Product Wasted: ___ mg Calcium 2020-06 No 1,000 mL, [facility] Chloride 0-18 Rate: 125 l 0.0014 22:37: ml/hr, MEQ/ML / 00 Infuse Potassium over: 8 Chloride hr, Route: 0.004 IV, Dosing MEQ/ML / Weight Sodium 85.4 kg, Chloride Total 0.103 Volume: MEQ/ML / 1,000, Sodium Start Lactate date: 0.028 04/10/21 MEQ/ML 17:37:00 Injectable CDT, Solution Duration: 30 day, Stop date: 05/10/21 17:36:00 ROLLER HAND, BSA: 2.03 m2, 0 Labetalol 2020-06 No 10 mg, 2 [place] timbo 0-18 mL, Route: l 22:37: IVP, Drug form: INJ, Q5Min, Dosing Weight 85.4, kg, PRN Elevated BP, Start date: 04/10/21 17:37:00 CDT, Duration: 5 doses or times, Stop date: Limited # of times, 0 Ketorolac 2020-06 No 4 days [facility] 0-18 l 22:37: MEDICATION [place] 00 WASTE Product Size: 30 mg Product Wasted: ___ mg Morphine 2020-06 No Notes: [facility] 0-18 (Same l 22:37: as:MORPhin [place] 00 e Sulfate) Hydromorpho 2020-06 No Notes: [place] timbo ne 0-18 Same as l 22:37: Dilaudid Flumazenil 2020-06 No Notes: [facility] 0-18 (Same as: l 22:37: Romazicon) [place] 00 Naloxone 2020-06 No Notes: [facility] 0-18 Same as l 22:37: Narcan [place] 00 Ondansetron 2020-06 No Notes: Sherman timbo 0-18 (Same as: l 22:37: Zofran) Ran 00 MEDICATION WASTE Product Size: 4 mg Product Wasted: ___ mg Calcium 2020-06 No 1,000 mL, [facility] Chloride 0-18 Rate: 125 l 0.0014 22:37: ml/hr, Ran MEQ/ML / 00 Infuse Potassium over: 8 Chloride hr, Route: 0.004 IV, Dosing MEQ/ML / Weight Sodium 85.4 kg, Chloride Total 0.103 Volume: MEQ/ML / 1,000, Sodium Start Lactate date: 0.028 04/10/21 MEQ/ML 17:37:00 Injectable CDT, Solution Duration: 30 day, Stop date: 05/10/21 17:36:00 ROLLER HAND, BSA: 2.03 m2, 0 Labetalol 2020-06 No 10 mg, 2 [place] timbo 0-18 mL, Route: l 22:37: IVP, Drug form: INJ, Q5Min, Dosing Weight 85.4, kg, PRN Elevated BP, Start date: 04/10/21 17:37:00 CDT, Duration: 5 doses or times, Stop date: Limited # of times, 0 Ketorolac 2020-06 No 4 days [facility] 0-18 l 22:37: MEDICATION [place] 00 WASTE Product Size: 30 mg Product Wasted: ___ mg Morphine 2020-06 No Notes: [facility] 0-18 (Same l 22:37: as:MORPhin [place] 00 e Sulfate) Hydromorpho 2020-06 No Notes: Sherman timbo ne 0-18 Same as l 22:37: Dilaudid Flumazenil 2020-06 No Notes: [facility] 0-18 (Same as: l 22:37: Romazicon) Naloxone 2020-06 No Notes: [facility]oria 0-18 Same as l 22:37: Narcan Ondansetron 2020-06 No Notes: Sherman timbo 0-18 (Same as: l 22:37: Zofran) [place] 00 MEDICATION WASTE Product Size: 4 mg Product Wasted: ___ mg Calcium 2020-06 No 1,000 mL, [facility] Chloride 0-18 Rate: 125 l 0.0014 22:37: ml/hr, Ran MEQ/ML / 00 Infuse Potassium over: 8 Chloride hr, Route: 0.004 IV, Dosing MEQ/ML / Weight Sodium 85.4 kg, Chloride Total 0.103 Volume: MEQ/ML / 1,000, Sodium Start Lactate date: 0.028 04/10/21 MEQ/ML 17:37:00 Injectable CDT, Solution Duration: 30 day, Stop date: 05/10/21 17:36:00 ROLLER HAND, BSA: 2.03 m2, 0 Labetalol 2020-06 No 10 mg, 2 Sherman timbo 0-18 mL, Route: l 22:37: IVP, Drug form: INJ, Q5Min, Dosing Weight 85.4, kg, PRN Elevated BP, Start date: 04/10/21 17:37:00 CDT, Duration: 5 doses or times, Stop date: Limited # of times, 0 Ketorolac 2020-06 No 4 days [facility] 0-18 l 22:37: MEDICATION WASTE Product Size: 30 mg Product Wasted: ___ mg Morphine 2020-06 No Notes: Memoria 0-18 (Same l 22:37: as:MORPhin e Sulfate) Hydromorpho 2020-06 No Notes: Sherman timbo ne 0-18 Same as l 22:37: Dilaudid Flumazenil 2020-06 No Notes: [facility] 0-18 (Same as: l 22:37: Romazicon) Ran 00 Naloxone 2020-06 No Notes: [facility]oria 0-18 Same as l 22:37: Narcan Ondansetron 2020-06 No Notes: Sherman timbo 0-18 (Same as: l 22:37: Zofran) MEDICATION WASTE Product Size: 4 mg Product Wasted: ___ mg Calcium 2020-06 No 1,000 mL, [facility] Chloride 0-18 Rate: 125 l 0.0014 22:37: ml/hr, [place] MEQ/ML / 00 Infuse Potassium over: 8 Chloride hr, Route: 0.004 IV, Dosing MEQ/ML / Weight Sodium 85.4 kg, Chloride Total 0.103 Volume: MEQ/ML / 1,000, Sodium Start Lactate date: 0.028 04/10/21 MEQ/ML 17:37:00 Injectable CDT, Solution Duration: 30 day, Stop date: 05/10/21 17:36:00 ROLLER HAND, BSA: 2.03 m2, 0 Labetalol 2020-06 No 10 mg, 2 Sherman timbo 0-18 mL, Route: l 22:37: IVP, Drug form: INJ, Q5Min, Dosing Weight 85.4, kg, PRN Elevated BP, Start date: 04/10/21 17:37:00 CDT, Duration: 5 doses or times, Stop date: Limited # of times, 0 Ketorolac 2020-06 No 4 days [facility] 0-18 l 22:37: MEDICATION WASTE Product Size: 30 mg Product Wasted: ___ mg Morphine 2020-06 No Notes: [facility]oria 0-18 (Same l 22:37: as:MORPhin e Sulfate) Hydromorpho 2020-06 No Notes: [place] timbo ne 0-18 Same as l 22:37: Dilaudid Flumazenil 2020-06 No Notes: [facility] 0-18 (Same as: l 22:37: Romazicon) Naloxone 2020-06 No Notes: [facility] 0-18 Same as l 22:37: Narcan Ondansetron 2020-06 No Notes: Sherman timbo 0-18 (Same as: l 22:37: Zofran) MEDICATION WASTE Product Size: 4 mg Product Wasted: ___ mg Calcium 2020-06 No 1,000 mL, [facility] Chloride 0-18 Rate: 125 l 0.0014 22:37: ml/hr, Ran MEQ/ML / 00 Infuse Potassium over: 8 Chloride hr, Route: 0.004 IV, Dosing MEQ/ML / Weight Sodium 85.4 kg, Chloride Total 0.103 Volume: MEQ/ML / 1,000, Sodium Start Lactate date: 0.028 04/10/21 MEQ/ML 17:37:00 Injectable CDT, Solution Duration: 30 day, Stop date: 05/10/21 17:36:00 ROLLER HAND, BSA: 2.03 m2, 0 Labetalol 2020-06 No 10 mg, 2 Sherman timbo 0-18 mL, Route: l 22:37: IVP, Drug form: INJ, Q5Min, Dosing Weight 85.4, kg, PRN Elevated BP, Start date: 04/10/21 17:37:00 CDT, Duration: 5 doses or times, Stop date: Limited # of times, 0 Ketorolac 2020-06 No 4 days Memor ia 0-18 l 22:37: MEDICATION [place] 00 WASTE Product Size: 30 mg Product Wasted: ___ mg Morphine 2020-06 No Notes: Memoria 0-18 (Same l 22:37: as:MORPhin e Sulfate) Hydromorpho 2020-06 No Notes: Sherman timbo ne 0-18 Same as l 22:37: Dilaudid Flumazenil 2020-06 No Notes: Memor ia 0-18 (Same as: l 22:37: Romazicon) [place] 00 Naloxone 2020-06 No Notes: Memoria 0-18 Same as l 22:37: Narcan Ondansetron 2020-06 No Notes: Sherman timbo 0-18 (Same as: l 22:37: Zofran) [place] 00 MEDICATION WASTE Product Size: 4 mg Product Wasted: ___ mg Calcium 2020-06 No 1,000 mL, Memor ia Chloride 0-18 Rate: 125 l 0.0014 22:37: ml/hr, [place] MEQ/ML / 00 Infuse Potassium over: 8 Chloride hr, Route: 0.004 IV, Dosing MEQ/ML / Weight Sodium 85.4 kg, Chloride Total 0.103 Volume: MEQ/ML / 1,000, Sodium Start Lactate date: 0.028 04/10/21 MEQ/ML 17:37:00 Injectable CDT, Solution Duration: 30 day, Stop date: 05/10/21 17:36:00 ROLLER HAND, BSA: 2.03 m2, 0 Labetalol 2020-06 No 10 mg, 2 Sherman timbo 0-18 mL, Route: l 22:37: IVP, Drug form: INJ, Q5Min, Dosing Weight 85.4, kg, PRN Elevated BP, Start date: 04/10/21 17:37:00 CDT, Duration: 5 doses or times, Stop date: Limited # of times, 0 Ketorolac 2020-06 No 4 days Memor ia 0-18 l 22:37: MEDICATION WASTE Product Size: 30 mg Product Wasted: ___ mg Morphine 2020-06 No Notes: Memoria 0-18 (Same l 22:37: as:MORPhin e Sulfate) Hydromorpho 2020-06 No Notes: Sherman timbo ne 0-18 Same as l 22:37: Dilaudid Flumazenil 2020-06 No Notes: Memor ia 0-18 (Same as: l 22:37: Romazicon) Naloxone 2020-06 No Notes: Memoria 0-18 Same as l 22:37: Narcan Ondansetron 2020-06 No Notes: Sherman timbo 0-18 (Same as: l 22:37: Zofran) MEDICATION WASTE Product Size: 4 mg Product Wasted: ___ mg Calcium 2020-06 No 1,000 mL, [facility] Chloride 0-18 Rate: 125 l 0.0014 22:37: ml/hr, [place] MEQ/ML / 00 Infuse Potassium over: 8 Chloride hr, Route: 0.004 IV, Dosing MEQ/ML / Weight Sodium 85.4 kg, Chloride Total 0.103 Volume: MEQ/ML / 1,000, Sodium Start Lactate date: 0.028 04/10/21 MEQ/ML 17:37:00 Injectable CDT, Solution Duration: 30 day, Stop date: 05/10/21 17:36:00 ROLLER HAND, BSA: 2.03 m2, 0 Labetalol 2020-06 No 10 mg, 2 Sherman timbo 0-18 mL, Route: l 22:37: IVP, Drug form: INJ, Q5Min, Dosing Weight 85.4, kg, PRN Elevated BP, Start date: 04/10/21 17:37:00 CDT, Duration: 5 doses or times, Stop date: Limited # of times, 0 Ketorolac 2020-06 No 4 days Mem[facility] 0-18 l 22:37: MEDICATION [place] 00 WASTE Product Size: 30 mg Product Wasted: ___ mg Morphine 2020-06 No Notes: Memoria 0-18 (Same l 22:37: as:MORPhin e Sulfate) Hydromorpho 2020-06 No Notes: Sherman timbo ne 0-18 Same as l 22:37: Dilaudid Flumazenil 2020-06 No Notes: Memor ia 0-18 (Same as: l 22:37: Romazicon) Naloxone 2020-06 No Notes: Memoria 0-18 Same as l 22:37: Narcan Ondansetron 2020-06 No Notes: Sherman timbo 0-18 (Same as: l 22:37: Zofran) MEDICATION WASTE Product Size: 4 mg Product Wasted: ___ mg Calcium 2020-06 No 1,000 mL, [facility] Chloride 0-18 Rate: 125 l 0.0014 22:37: ml/hr, [place] MEQ/ML / 00 Infuse Potassium over: 8 Chloride hr, Route: 0.004 IV, Dosing MEQ/ML / Weight Sodium 85.4 kg, Chloride Total 0.103 Volume: MEQ/ML / 1,000, Sodium Start Lactate date: 0.028 04/10/21 MEQ/ML 17:37:00 Injectable CDT, Solution Duration: 30 day, Stop date: 05/10/21 17:36:00 ROLLER HAND, BSA: 2.03 m2, 0 Labetalol 2020-06 No 10 mg, 2 Sherman timbo 0-18 mL, Route: l 22:37: IVP, Drug [place] 00 form: INJ, Q5Min, Dosing Weight 85.4, kg, PRN Elevated BP, Start date: 04/10/21 17:37:00 CDT, Duration: 5 doses or times, Stop date: Limited # of times, 0 Ketorolac 2020-06 No 4 days [facility] 0-18 l 22:37: MEDICATION WASTE Product Size: 30 mg Product Wasted: ___ mg Morphine 2020-06 No Notes: Memoria 0-18 (Same l 22:37: as:MORPhin e Sulfate) Hydromorpho 2020-06 No Notes: Sherman timbo ne 0-18 Same as l 22:37: Dilaudid Flumazenil 2020-06 No Notes: Memor ia 0-18 (Same as: l 22:37: Romazicon) Naloxone 2020-06 No Notes: Memoria 0-18 Same as l 22:37: Narcan Ondansetron 2020-06 No Notes: Sherman timbo 0-18 (Same as: l 22:37: Zofran) MEDICATION WASTE Product Size: 4 mg Product Wasted: ___ mg Calcium 2020-06 No 1,000 mL, [facility] Chloride 0-18 Rate: 125 l 0.0014 22:37: ml/hr, MEQ/ML / 00 Infuse Potassium over: 8 Chloride hr, Route: 0.004 IV, Dosing MEQ/ML / Weight Sodium 85.4 kg, Chloride Total 0.103 Volume: MEQ/ML / 1,000, Sodium Start Lactate date: 0.028 04/10/21 MEQ/ML 17:37:00 Injectable CDT, Solution Duration: 30 day, Stop date: 05/10/21 17:36:00 ROLLER HAND, BSA: 2.03 m2, 0 Labetalol 2020-06 No 10 mg, 2 Sherman timbo 0-18 mL, Route: l 22:37: IVP, Drug form: INJ, Q5Min, Dosing Weight 85.4, kg, PRN Elevated BP, Start date: 04/10/21 17:37:00 CDT, Duration: 5 doses or times, Stop date: Limited # of times, 0 Calcium 2020-06 No 1,000 mL, [facility] Chloride 0-18 Rate: 125 l 0.0014 22:37: ml/hr, [place] MEQ/ML / 00 Infuse Potassium over: 8 Chloride hr, Route: 0.004 IV, Dosing MEQ/ML / Weight Sodium 85.4 kg, Chloride Total 0.103 Volume: MEQ/ML / 1,000, Sodium Start Lactate date: 0.028 04/10/21 MEQ/ML 17:37:00 Injectable CDT, Solution Duration: 30 day, Stop date: 05/10/21 17:36:00 ROLLER HAND, BSA: 2.03 m2, 0 Labetalol 2020-06 No 10 mg, 2 [place] timbo 0-18 mL, Route: l 22:37: IVP, Drug form: INJ, Q5Min, Dosing Weight 85.4, kg, PRN Elevated BP, Start date: 04/10/21 17:37:00 CDT, Duration: 5 doses or times, Stop date: Limited # of times, 0 Ketorolac 2020-06 No 4 days [facility] 0-18 l 22:37: MEDICATION [place] 00 WASTE Product Size: 30 mg Product Wasted: ___ mg Morphine 2020-06 No Notes: Memoria 0-18 (Same l 22:37: as:MORPhin e Sulfate) Hydromorpho 2020-06 No Notes: [place] timbo ne 0-18 Same as l 22:37: Dilaudid Flumazenil 2020-06 No Notes: Memor ia 0-18 (Same as: l 22:37: Romazicon) [place] 00 Naloxone 2020-06 No Notes: Memoria 0-18 Same as l 22:37: Narcan Ondansetron 2020-06 No Notes: Sherman timbo 0-18 (Same as: l 22:37: Zofran) [place] MEDICATION WASTE Product Size: 4 mg Product Wasted: ___ mg Ketorolac 2020-06 No 4 days Memor ia 0-18 l 22:37: MEDICATION [place] 00 WASTE Product Size: 30 mg Product Wasted: ___ mg Morphine 2020-06 No Notes: Memoria 0-18 (Same l 22:37: as:MORPhin [place] 00 e Sulfate) Hydromorpho 2020-06 No Notes: Sherman timbo ne 0-18 Same as l 22:37: Dilaudid Flumazenil 2020-06 No Notes: Memor ia 0-18 (Same as: l 22:37: Romazicon) [place] 00 Naloxone 2020-06 No Notes: Memoria 0-18 Same as l 22:37: Narcan [place] 00 Ondansetron 2020-06 No Notes: Sherman timbo 0-18 (Same as: l 22:37: Zofran) [place] 00 MEDICATION WASTE Product Size: 4 mg Product Wasted: ___ mg Calcium 2020-06 No 1,000 mL, [facility] Chloride 0-18 Rate: 125 l 0.0014 22:37: ml/hr, [place] MEQ/ML / 00 Infuse Potassium over: 8 Chloride hr, Route: 0.004 IV, Dosing MEQ/ML / Weight Sodium 85.4 kg, Chloride Total 0.103 Volume: MEQ/ML / 1,000, Sodium Start Lactate date: 0.028 04/10/21 MEQ/ML 17:37:00 Injectable CDT, Solution Duration: 30 day, Stop date: 05/10/21 17:36:00 ROLLER HAND, BSA: 2.03 m2, 0 Labetalol 2020-06 No 10 mg, 2 Sherman timbo 0-18 mL, Route: l 22:37: IVP, Drug form: INJ, Q5Min, Dosing Weight 85.4, kg, PRN Elevated BP, Start date: 04/10/21 17:37:00 CDT, Duration: 5 doses or times, Stop date: Limited # of times, 0 Ketorolac 2020-06 No 4 days Memor ia 0-18 l 22:37: MEDICATION WASTE Product Size: 30 mg Product Wasted: ___ mg Morphine 2020-06 No Notes: Memoria 0-18 (Same l 22:37: as:MORPhin [place] 00 e Sulfate) Hydromorpho 2020-06 No Notes: Sherman timbo ne 0-18 Same as l 22:37: Dilaudid Flumazenil 2020-06 No Notes: Memor ia 0-18 (Same as: l 22:37: Romazicon) [place] 00 Naloxone 2020-06 No Notes: Memoria 0-18 Same as l 22:37: Narcan Ondansetron 2020-06 No Notes: Sherman timbo 0-18 (Same as: l 22:37: Zofran) [place] 00 MEDICATION WASTE Product Size: 4 mg Product Wasted: ___ mg Calcium 2020-06 No 1,000 mL, [facility] ia Chloride 0-18 Rate: 125 l 0.0014 22:37: ml/hr, [place] MEQ/ML / 00 Infuse Potassium over: 8 Chloride hr, Route: 0.004 IV, Dosing MEQ/ML / Weight Sodium 85.4 kg, Chloride Total 0.103 Volume: MEQ/ML / 1,000, Sodium Start Lactate date: 0.028 04/10/21 MEQ/ML 17:37:00 Injectable CDT, Solution Duration: 30 day, Stop date: 05/10/21 17:36:00 ROLLER HAND, BSA: 2.03 m2, 0 Labetalol 2020-06 No 10 mg, 2 [place] timbo 0-18 mL, Route: l 22:37: IVP, Drug form: INJ, Q5Min, Dosing Weight 85.4, kg, PRN Elevated BP, Start date: 04/10/21 17:37:00 CDT, Duration: 5 doses or times, Stop date: Limited # of times, 0 Ketorolac 2020-06 No 4 days Mem[facility] ia 0-18 l 22:37: MEDICATION WASTE Product Size: 30 mg Product Wasted: ___ mg Morphine 2020-06 No Notes: Memoria 0-18 (Same l 22:37: as:MORPhin [place] 00 e Sulfate) Hydromorpho 2020-06 No Notes: Sherman timbo ne 0-18 Same as l 22:37: Dilaudid Flumazenil 2020-06 No Notes: Memor ia 0-18 (Same as: l 22:37: Romazicon) [place] 00 Naloxone 2020-06 No Notes: Memoria 0-18 Same as l 22:37: Narcan Ondansetron 2020-06 No Notes: Sherman timbo 0-18 (Same as: l 22:37: Zofran) MEDICATION WASTE Product Size: 4 mg Product Wasted: ___ mg Calcium 2020-06 No 1,000 mL, [facility] Chloride 0-18 Rate: 125 l 0.0014 22:37: ml/hr, [place] MEQ/ML / 00 Infuse Potassium over: 8 Chloride hr, Route: 0.004 IV, Dosing MEQ/ML / Weight Sodium 85.4 kg, Chloride Total 0.103 Volume: MEQ/ML / 1,000, Sodium Start Lactate date: 0.028 04/10/21 MEQ/ML 17:37:00 Injectable CDT, Solution Duration: 30 day, Stop date: 05/10/21 17:36:00 ROLLER HAND, BSA: 2.03 m2, 0 Labetalol 2020-06 No 10 mg, 2 [place] timbo 0-18 mL, Route: l 22:37: IVP, Drug form: INJ, Q5Min, Dosing Weight 85.4, kg, PRN Elevated BP, Start date: 04/10/21 17:37:00 CDT, Duration: 5 doses or times, Stop date: Limited # of times, 0 Ketorolac 2020-06 No 4 days Mem[facility] ia 0-18 l 22:37: MEDICATION WASTE Product Size: 30 mg Product Wasted: ___ mg Morphine 2020-06 No Notes: Memoria 0-18 (Same l 22:37: as:MORPhin e Sulfate) Hydromorpho 2020-06 No Notes: Sherman timbo ne 0-18 Same as l 22:37: Dilaudid Flumazenil 2020-06 No Notes: Memor ia 0-18 (Same as: l 22:37: Romazicon) Naloxone 2020-06 No Notes: Memoria 0-18 Same as l 22:37: Narcan Ondansetron 2020-06 No Notes: Sherman timbo 0-18 (Same as: l 22:37: Zofran) MEDICATION WASTE Product Size: 4 mg Product Wasted: ___ mg Calcium 2021-1 No 1,000 mL, [facility] Chloride 0-18 Rate: 125 l 0.0014 22:37: ml/hr, [place] MEQ/ML / 00 Infuse Potassium over: 8 Chloride hr, Route: 0.004 IV, Dosing MEQ/ML / Weight Sodium 85.4 kg, Chloride Total 0.103 Volume: MEQ/ML / 1,000, Sodium Start Lactate date: 0.028 04/10/21 MEQ/ML 17:37:00 Injectable CDT, Solution Duration: 30 day, Stop date: 05/10/21 17:36:00 ROLLER HAND, BSA: 2.03 m2, 0 Labetalol 2020-06 No 10 mg, 2 [place] timbo 0-18 mL, Route: l 22:37: IVP, Drug [place] 00 form: INJ, Q5Min, Dosing Weight 85.4, kg, PRN Elevated BP, Start date: 04/10/21 17:37:00 CDT, Duration: 5 doses or times, Stop date: Limited # of times, 0 Ketorolac 2020-06 No 4 days Mem[facility] ia 0-18 l 22:37: MEDICATION [place] 00 WASTE Product Size: 30 mg Product Wasted: ___ mg Morphine 2020-06 No Notes: Memoria 0-18 (Same l 22:37: as:MORPhin [place] 00 e Sulfate) Hydromorpho 2020-06 No Notes: Sherman timbo ne 0-18 Same as l 22:37: Dilaudid [place] 00 Calcium 2020-06 No 1,000 mL, [facility] ia Chloride 0-18 Rate: 125 l 0.0014 22:37: ml/hr, [place] MEQ/ML / 00 Infuse Potassium over: 8 Chloride hr, Route: 0.004 IV, Dosing MEQ/ML / Weight Sodium 85.4 kg, Chloride Total 0.103 Volume: MEQ/ML / 1,000, Sodium Start Lactate date: 0.028 04/10/21 MEQ/ML 17:37:00 Injectable CDT, Solution Duration: 30 day, Stop date: 05/10/21 17:36:00 ROLLER HAND, BSA: 2.03 m2, 0 Labetalol 2020-06 No 10 mg, 2 [place] timbo 0-18 mL, Route: l 22:37: IVP, Drug [place] 00 form: INJ, Q5Min, Dosing Weight 85.4, kg, PRN Elevated BP, Start date: 04/10/21 17:37:00 CDT, Duration: 5 doses or times, Stop date: Limited # of times, 0 Ketorolac 2020-06 No 4 days [facility] 0-18 l 22:37: MEDICATION [place] 00 WASTE Product Size: 30 mg Product Wasted: ___ mg Morphine 2020-06 No Notes: Memoria 0-18 (Same l 22:37: as:MORPhin e Sulfate) Hydromorpho 2020-06 No Notes: [place] timbo ne 0-18 Same as l 22:37: Dilaudid Flumazenil 2020-06 No Notes: Memor ia 0-18 (Same as: l 22:37: Romazicon) Naloxone 2020-06 No Notes: Memoria 0-18 Same as l 22:37: Narcan Ondansetron 2020-06 No Notes: Sherman timbo 0-18 (Same as: l 22:37: Zofran) MEDICATION WASTE Product Size: 4 mg Product Wasted: ___ mg Lactated 2020-06 No Route: IV, Mem oria Ringers 0-18 Total l Injection 21:56: Volume: Hermila nn IV (ANES) 00 1,000, 1000 mL Start date: 04/10/21 16:56:00 CDT, Stop date: 04/10/21 17:56:00 CDT Lactated 2020-06 No Route: IV, Mem o[facility] Ringers 0-18 Total l Injection 21:56: Volume: Hermila nn IV (ANES) 00 1,000, 1000 mL Start date: 04/10/21 16:56:00 CDT, Stop date: 04/10/21 17:56:00 CDT Lactated 2020-06 No Route: IV, Mem o[facility] Ringers 0-18 Total l Injection 21:56: Volume: Hermila nn IV (ANES) 00 1,000, 1000 mL Start date: 04/10/21 16:56:00 CDT, Stop date: 04/10/21 17:56:00 CDT Lactated 2020-06 No Route: IV, Mem o[facility] Ringers 0-18 Total l Injection 21:56: Volume: Hermila nn IV (ANES) 00 1,000, 1000 mL Start date: 04/10/21 16:56:00 CDT, Stop date: 04/10/21 17:56:00 CDT Lactated 2020-06 No Route: IV, Mem o[facility] Ringers 0-18 Total l Injection 21:56: Volume: Hermila nn IV (ANES) 00 1,000, 1000 mL Start date: 04/10/21 16:56:00 CDT, Stop date: 04/10/21 17:56:00 CDT Lactated 2020-06 No Route: IV, Mem o[facility] Ringers 0-18 Total l Injection 21:56: Volume: Hermila nn IV (ANES) 00 1,000, 1000 mL Start date: 04/10/21 16:56:00 CDT, Stop date: 04/10/21 17:56:00 CDT Lactated 2020-06 No Route: IV, Mem o[facility] Ringers 0-18 Total l Injection 21:56: Volume: Hermila nn IV (ANES) 00 1,000, 1000 mL Start date: 04/10/21 16:56:00 CDT, Stop date: 04/10/21 17:56:00 CDT Lactated 2020-06 No Route: IV, [facility] o[facility] Ringers 0-18 Total l Injection 21:56: Volume: Hermila nn IV (ANES) 00 1,000, 1000 mL Start date: 04/10/21 16:56:00 CDT, Stop date: 04/10/21 17:56:00 CDT Lactated 2020-06 No Route: IV, Mem o[facility] Ringers 0-18 Total l Injection 21:56: Volume: Hermila nn IV (ANES) 00 1,000, 1000 mL Start date: 04/10/21 16:56:00 CDT, Stop date: 04/10/21 17:56:00 CDT Lactated 2020-06 No Route: IV, [facility] o[facility] Ringers 0-18 Total l Injection 21:56: Volume: Hermila nn IV (ANES) 00 1,000, 1000 mL Start date: 04/10/21 16:56:00 CDT, Stop date: 04/10/21 17:56:00 CDT Lactated 2020-06 No Route: IV, Mem o[facility] Ringers 0-18 Total l Injection 21:56: Volume: Hermila nn IV (ANES) 00 1,000, 1000 mL Start date: 04/10/21 16:56:00 CDT, Stop date: 04/10/21 17:56:00 CDT Lactated 2020-06 No Route: IV, Mem o[facility] Ringers 0-18 Total l Injection 21:56: Volume: Hermila nn IV (ANES) 00 1,000, 1000 mL Start date: 04/10/21 16:56:00 CDT, Stop date: 04/10/21 17:56:00 CDT Lactated 2020-06 No Route: IV, Mem o[facility] Ringers 0-18 Total l Injection 21:56: Volume: Hermila nn IV (ANES) 00 1,000, 1000 mL Start date: 04/10/21 16:56:00 CDT, Stop date: 04/10/21 17:56:00 CDT Lactated 2020-06 No Route: IV, Mem o[facility] Ringers 0-18 Total l Injection 21:56: Volume: Hermila nn IV (ANES) 00 1,000, 1000 mL Start date: 04/10/21 16:56:00 CDT, Stop date: 04/10/21 17:56:00 CDT Lactated 2020-06 No Route: IV, Mem o[facility] Ringers 0-18 Total l Injection 21:56: Volume: Hermila nn IV (ANES) 00 1,000, 1000 mL Start date: 04/10/21 16:56:00 CDT, Stop date: 04/10/21 17:56:00 CDT Lactated 2020-06 No Route: IV, Mem o[facility] Ringers 0-18 Total l Injection 21:56: Volume: Hermila nn IV (ANES) 00 1,000, 1000 mL Start date: 04/10/21 16:56:00 CDT, Stop date: 04/10/21 17:56:00 CDT Lactated 2020-06 No Route: IV, Mem o[facility] Ringers 0-18 Total l Injection 21:56: Volume: Hermila nn IV (ANES) 00 1,000, 1000 mL Start date: 04/10/21 16:56:00 CDT, Stop date: 04/10/21 17:56:00 CDT Lactated 2020-06 No Route: IV, Mem o[facility] Ringers 0-18 Total l Injection 21:56: Volume: Hermila nn IV (ANES) 00 1,000, 1000 mL Start date: 04/10/21 16:56:00 CDT, Stop date: 04/10/21 17:56:00 CDT Lactated 2020-06 No Route: IV, Mem o[facility] Ringers 0-18 Total l Injection 21:56: Volume: Hermila nn IV (ANES) 00 1,000, 1000 mL Start date: 04/10/21 16:56:00 CDT, Stop date: 04/10/21 17:56:00 CDT Lactated 2020-06 No Route: IV, Mem o[facility] Ringers 0-18 Total l Injection 21:56: Volume: Hermila nn IV (ANES) 00 1,000, 1000 mL Start date: 04/10/21 16:56:00 CDT, Stop date: 04/10/21 17:56:00 CDT Lactated 2020-06 No Route: IV, Mem o[facility] Ringers 0-18 Total l Injection 21:56: Volume: Hermila nn IV (ANES) 00 1,000, 1000 mL Start date: 04/10/21 16:56:00 CDT, Stop date: 04/10/21 17:56:00 CDT Lactated 2020-06 No Route: IV, Mem o[facility] Ringers 0-18 Total l Injection 21:56: Volume: Hermila nn IV (ANES) 00 1,000, 1000 mL Start date: 04/10/21 16:56:00 CDT, Stop date: 04/10/21 17:56:00 CDT Lactated 2020-06 No Route: IV, Mem oria Ringers 0-18 Total l Injection 21:56: Volume: Hermila nn IV (ANES) 00 1,000, 1000 mL Start date: 04/10/21 16:56:00 CDT, Stop date: 04/10/21 17:56:00 CDT Lactated 2020-06 No Route: IV, Mem oria Ringers 0-18 Total l Injection 21:56: Volume: Hermila nn IV (ANES) 00 1,000, 1000 mL Start date: 04/10/21 16:56:00 CDT, Stop date: 04/10/21 17:56:00 CDT Lactated 2020-06 No Route: IV, Mem o[facility] Ringers 0-18 Total l Injection 21:56: Volume: Hermila nn IV (ANES) 00 1,000, 1000 mL Start date: 04/10/21 16:56:00 CDT, Stop date: 04/10/21 17:56:00 CDT Lactated 2020-06 No Route: IV, Mem o[facility] Ringers 0-18 Total l Injection 21:56: Volume: Hermila nn IV (ANES) 00 1,000, 1000 mL Start date: 04/10/21 16:56:00 CDT, Stop date: 04/10/21 17:56:00 CDT Lactated 2020-06 No Route: IV, Mem oria Ringers 0-18 Total l Injection 21:56: Volume: Hermila nn IV (ANES) 00 1,000, 1000 mL Start date: 04/10/21 16:56:00 CDT, Stop date: 04/10/21 17:56:00 CDT Lactated 2020-06 No Route: IV, Mem oria Ringers 0-18 Total l Injection 21:56: Volume: Hermila nn IV (ANES) 00 1,000, 1000 mL Start date: 04/10/21 16:56:00 CDT, Stop date: 04/10/21 17:56:00 CDT Lactated 2020-06 No Route: IV, Mem o[facility] Ringers 0-18 Total l Injection 21:56: Volume: Hermila nn IV (ANES) 00 1,000, 1000 mL Start date: 04/10/21 16:56:00 CDT, Stop date: 04/10/21 17:56:00 CDT Lactated 2020-06 No Route: IV, Mem oria Ringers 0-18 Total l Injection 21:56: Volume: Hermila nn IV (ANES) 00 1,000, 1000 mL Start date: 04/10/21 16:56:00 CDT, Stop date: 04/10/21 17:56:00 CDT Lactated 2020-06 No Route: IV, Mem oria Ringers 0-18 Total l Injection 21:56: Volume: Hermila nn IV (ANES) 00 1,000, 1000 mL Start date: 04/10/21 16:56:00 CDT, Stop date: 04/10/21 17:56:00 CDT Lactated 2020-06 No Route: IV, Mem oria Ringers 0-18 Total l Injection 21:56: Volume: Hermila nn IV (ANES) 00 1,000, 1000 mL Start date: 04/10/21 16:56:00 CDT, Stop date: 04/10/21 17:56:00 CDT Lactated 2020-06 No Route: IV, Mem oria Ringers 0-18 Total l Injection 21:56: Volume: Hermila nn IV (ANES) 00 1,000, 1000 mL Start date: 04/10/21 16:56:00 CDT, Stop date: 04/10/21 17:56:00 CDT Lactated 2020-06 No Route: IV, Mem oria Ringers 0-18 Total l Injection 21:56: Volume: Hermila nn IV (ANES) 00 1,000, 1000 mL Start date: 04/10/21 16:56:00 CDT, Stop date: 04/10/21 17:56:00 CDT Lactated 2020-06 No Route: IV, Mem oria Ringers 0-18 Total l Injection 21:56: Volume: Hermila nn IV (ANES) 00 1,000, 1000 mL Start date: 04/10/21 16:56:00 CDT, Stop date: 04/10/21 17:56:00 CDT Lactated 2020-06 No Route: IV, Mem oria Ringers 0-18 Total l Injection 21:56: Volume: Hermila nn IV (ANES) 00 1,000, 1000 mL Start date: 04/10/21 16:56:00 CDT, Stop date: 04/10/21 17:56:00 CDT Lactated 2020-06 No Route: IV, Mem oria Ringers 0-18 Total l Injection 21:56: Volume: Hermila nn IV (ANES) 00 1,000, 1000 mL Start date: 04/10/21 16:56:00 CDT, Stop date: 04/10/21 17:56:00 CDT Lactated 2020-06 No Route: IV, Mem oria Ringers 0-18 Total l Injection 21:56: Volume: Hermila nn IV (ANES) 00 1,000, 1000 mL Start date: 04/10/21 16:56:00 CDT, Stop date: 04/10/21 17:56:00 CDT Lactated 2020-06 No Route: IV, Mem oria Ringers 0-18 Total l Injection 21:56: Volume: Hermila nn IV (ANES) 00 1,000, 1000 mL Start date: 04/10/21 16:56:00 CDT, Stop date: 04/10/21 17:56:00 CDT Lactated 2020-06 No Route: IV, Mem oria Ringers 0-18 Total l Injection 21:56: Volume: Hermila nn IV (ANES) 00 1,000, 1000 mL Start date: 04/10/21 16:56:00 CDT, Stop date: 04/10/21 17:56:00 CDT Docusate 2020-06 No Notes: Memoria 0-18 (Same as: l 14:00: Colace) [place] 00 (Do Not Crush) Docusate 2020-06 No Notes: Memoria 0-18 (Same as: l 14:00: Colace) [place] 00 (Do Not Crush) Docusate 2020-06 No Notes: Memoria 0-18 (Same as: l 14:00: Colace) [place] 00 (Do Not Crush) Docusate 2020-06 No Notes: Memoria 0-18 (Same as: l 14:00: Colace) [place] 00 (Do Not Crush) Docusate 2020-06 No Notes: Memoria 0-18 (Same as: l 14:00: Colace) [place] 00 (Do Not Crush) Docusate 2020-06 No Notes: Memoria 0-18 (Same as: l 14:00: Colace) [place] 00 (Do Not Crush) Docusate 2020-06 No Notes: Memoria 0-18 (Same as: l 14:00: [facility]) [place] 00 (Do Not Crush) [place] 2020-06 No Notes: [facility] 0-18 (Same as: l 14:00: [facility]) [place] 00 (Do Not Crush) [place] 2020-06 No Notes: [facility] 0-18 (Same as: l 14:00: [facility]ace) [place] 00 (Do Not Crush) [place] 2020-06 No Notes: [facility]oria 0-18 (Same as: l 14:00: [facility]) [place] 00 (Do Not Crush) [place] 2020-06 No Notes: [facility] 0-18 (Same as: l 14:00: [facility]) [place] 00 (Do Not Crush) [place] 2020-06 No Notes: [facility] 0-18 (Same as: l 14:00: [facility]) [place] 00 (Do Not Crush) [place] 2020-06 No Notes: [facility] 0-18 (Same as: l 14:00: Colace) [place] 00 (Do Not Crush) [place] 2020-06 No Notes: [facility]oria 0-18 (Same as: l 14:00: Colace) [place] 00 (Do Not Crush) [place] 2020-06 No Notes: [facility] 0-18 (Same as: l 14:00: Colace) [place] 00 (Do Not Crush) [place] 2020-06 No Notes: [facility] 0-18 (Same as: l 14:00: [facility]) [place] 00 (Do Not Crush) [place] 2020-06 No Notes: [facility] 0-18 (Same as: l 14:00: [facility]) [place] 00 (Do Not Crush) [place] 2020-06 No Notes: [facility] 0-18 (Same as: l 14:00: Colace) [place] 00 (Do Not Crush) [place] 2020-06 No Notes: [facility] 0-18 (Same as: l 14:00: [facility]) [place] 00 (Do Not Crush) [place] 2020-06 No Notes: [facility] 0-18 (Same as: l 14:00: [facility]) [place] 00 (Do Not Crush) [place] 2020-06 No Notes: [facility] 0-18 (Same as: l 14:00: [facility]) [place] 00 (Do Not Crush) [place] 2020-06 No Notes: [facility] 0-18 (Same as: l 14:00: [facility]) [place] 00 (Do Not Crush) [place] 2020-06 No Notes: [facility] 0-18 (Same as: l 14:00: [facility]) [place] 00 (Do Not Crush) [place] 2020-06 No Notes: [facility] 0-18 (Same as: l 14:00: [facility]ace) [place] 00 (Do Not Crush) [place] 2020-06 No Notes: [facility] 0-18 (Same as: l 14:00: Colace) [place] 00 (Do Not Crush) [place] 2020-06 No Notes: [facility] 0-18 (Same as: l 14:00: [facility]ace) [place] 00 (Do Not Crush) [place] 2020-06 No Notes: [facility] 0-18 (Same as: l 14:00: Colace) [place] 00 (Do Not Crush) [place] 2020-06 No Notes: [facility]oria 0-18 (Same as: l 14:00: Colace) [place] 00 (Do Not Crush) [place] 2020-06 No Notes: [facility]oria 0-18 (Same as: l 14:00: [facility]) [place] 00 (Do Not Crush) [place] 2020-06 No Notes: [facility] 0-18 (Same as: l 14:00: Colace) [place] 00 (Do Not Crush) [place] 2020-06 No Notes: [facility] 0-18 (Same as: l 14:00: [facility]) [place] 00 (Do Not Crush) [place] 2020-06 No Notes: [facility]oria 0-18 (Same as: l 14:00: Colace) [place] 00 (Do Not Crush) [place] 2020-06 No Notes: [facility]oria 0-18 (Same as: l 14:00: [facility]) [place] 00 (Do Not Crush) [place] 2020-06 No Notes: [facility]oria 0-18 (Same as: l 14:00: [facility]) [place] 00 (Do Not Crush) [place] 2020-06 No Notes: [facility] 0-18 (Same as: l 14:00: [facility]) [place] 00 (Do Not Crush) [place] 2020-06 No Notes: [facility] 0-18 (Same as: l 14:00: [facility]) [place] 00 (Do Not Crush) [place] 2020-06 No Notes: [facility]oria 0-18 (Same as: l 14:00: [facility]) [place] 00 (Do Not Crush) [place] 2020-06 No Notes: [facility]oria 0-18 (Same as: l 14:00: [facility]) [place] 00 (Do Not Crush) Docusate 2020-06 No Notes: Memoria 0-18 (Same as: l 14:00: Colace) Ran 00 (Do Not Crush) Docusate 2020-06 No Notes: Memoria 0-18 (Same as: l 14:00: Colace) Ran 00 (Do Not Crush) Cefazolin 2020-06 No Notes: Memori a 0-17 (Same As: l 23:00: Ancef, [place] 00 Kefzol) MEDICATION WASTE Product Size: 1000 mg Product Wasted: ___ mg Lidocaine 2020-06 No Notes: Memori a 0.04 MG/MG 0-17 Apply only l Medicated 23:00: once for Herm miguel Patch 00 up to 12 hours in a 24-hour period (12 hours on and 12 hours off). (Same as: Aspercreme Lidocaine Patch) "Remove old patch before applicatio n of new patch" [facility] 2020-06 No Notes: Max Memoria en 0-17 acetaminop l 23:00: hen 4000 [place] 00 mg/day (4 gm/day). (Same as: Tylenol Extra Strength) Cefazolin 2020-06 No Notes: Memori a 0-17 (Same As: l 23:00: Ancef, [place] 00 Kefzol) MEDICATION WASTE Product Size: 1000 mg Product Wasted: ___ mg Lidocaine 2020-06 No Notes: Memori a 0.04 MG/MG 0-17 Apply only l Medicated 23:00: once for Herm miguel Patch 00 up to 12 hours in a 24-hour period (12 hours on and 12 hours off). (Same as: Aspercreme Lidocaine Patch) "Remove old patch before applicatio n of new patch" [facility] 2020-06 No Notes: Max Memoria en 0-17 acetaminop l 23:00: hen 4000 [place] 00 mg/day (4 gm/day). (Same as: Tylenol Extra Strength) Cefazolin 2020-06 No Notes: Memori a 0-17 (Same As: l 23:00: Ancef, [place] 00 Kefzol) MEDICATION WASTE Product Size: 1000 mg Product Wasted: ___ mg Lidocaine 2020-06 No Notes: Memori a 0.04 MG/MG 0-17 Apply only l Medicated 23:00: once for Herm miguel Patch 00 up to 12 hours in a 24-hour period (12 hours on and 12 hours off). (Same as: Aspercreme Lidocaine Patch) "Remove old patch before applicatio n of new patch" Acetaminoph 2020-06 No Notes: Max Memoria en 0-17 acetaminop l 23:00: hen 4000 [place] 00 mg/day (4 gm/day). (Same as: Tylenol Extra Strength) Cefazolin 2020-06 No Notes: Memori a 0-17 (Same As: l 23:00: Ancef, [place] 00 Kefzol) MEDICATION WASTE Product Size: 1000 mg Product Wasted: ___ mg Lidocaine 2020-06 No Notes: Memori a 0.04 MG/MG 0-17 Apply only l Medicated 23:00: once for Herm miguel Patch 00 up to 12 hours in a 24-hour period (12 hours on and 12 hours off). (Same as: Aspercreme Lidocaine Patch) "Remove old patch before applicatio n of new patch" Acetaminoph 2020-06 No Notes: Max Memoria en 0-17 acetaminop l 23:00: hen 4000 Ran 00 mg/day (4 gm/day). (Same as: Tylenol Extra Strength) Cefazolin 2020-06 No Notes: Memori a 0-17 (Same As: l 23:00: Ancef, [place] 00 Kefzol) MEDICATION WASTE Product Size: 1000 mg Product Wasted: ___ mg Lidocaine 2020-06 No Notes: Memori a 0.04 MG/MG 0-17 Apply only l Medicated 23:00: once for Herm miguel Patch 00 up to 12 hours in a 24-hour period (12 hours on and 12 hours off). (Same as: Aspercreme Lidocaine Patch) "Remove old patch before applicatio n of new patch" Acetaminoph 2020-06 No Notes: Max Memoria en 0-17 acetaminop l 23:00: hen 4000 [place] 00 mg/day (4 gm/day). (Same as: Tylenol Extra Strength) Cefazolin 2020-06 No Notes: Memori a 0-17 (Same As: l 23:00: Ancef, [place] 00 Kefzol) MEDICATION WASTE Product Size: 1000 mg Product Wasted: ___ mg Lidocaine 2020-06 No Notes: Memori a 0.04 MG/MG 0-17 Apply only l Medicated 23:00: once for Herm miguel Patch 00 up to 12 hours in a 24-hour period (12 hours on and 12 hours off). (Same as: Aspercreme Lidocaine Patch) "Remove old patch before applicatio n of new patch" Acetaminoph 2020-06 No Notes: Max Memoria en 0-17 acetaminop l 23:00: hen 4000 [place] 00 mg/day (4 gm/day). (Same as: Tylenol Extra Strength) Cefazolin 2020-06 No Notes: Memori a 0-17 (Same As: l 23:00: Ancef, [place] 00 Kefzol) MEDICATION WASTE Product Size: 1000 mg Product Wasted: ___ mg Cefazolin 2020-06 No Notes: Memori a 0-17 (Same As: l 23:00: Ancef, [place] 00 Kefzol) MEDICATION WASTE Product Size: 1000 mg Product Wasted: ___ mg Lidocaine 2020-06 No Notes: Memori a 0.04 MG/MG 0-17 Apply only l Medicated 23:00: once for Herm miguel Patch 00 up to 12 hours in a 24-hour period (12 hours on and 12 hours off). (Same as: Aspercreme Lidocaine Patch) "Remove old patch before applicatio n of new patch" Acetaminoph 2020-06 No Notes: Max Memoria en 0-17 acetaminop l 23:00: hen 4000 [place] 00 mg/day (4 gm/day). (Same as: Tylenol Extra Strength) Lidocaine 2020-06 No Notes: Memori a 0.04 MG/MG 0-17 Apply only l Medicated 23:00: once for Herm miguel Patch 00 up to 12 hours in a 24-hour period (12 hours on and 12 hours off). (Same as: Aspercreme Lidocaine Patch) "Remove old patch before applicatio n of new patch" Acetaminoph 2020-06 No Notes: Max Memoria en 0-17 acetaminop l 23:00: hen 4000 [place] 00 mg/day (4 gm/day). (Same as: Tylenol Extra Strength) Cefazolin 2020-06 No Notes: Memori a 0-17 (Same As: l 23:00: Ancef, [place] 00 Kefzol) MEDICATION WASTE Product Size: 1000 mg Product Wasted: ___ mg Lidocaine 2020-06 No Notes: Memori a 0.04 MG/MG 0-17 Apply only l Medicated 23:00: once for Herm miguel Patch 00 up to 12 hours in a 24-hour period (12 hours on and 12 hours off). (Same as: Aspercreme Lidocaine Patch) "Remove old patch before applicatio n of new patch" Acetaminoph 2020-06 No Notes: Max Memoria en 0-17 acetaminop l 23:00: hen 4000 [place] 00 mg/day (4 gm/day). (Same as: Tylenol Extra Strength) Cefazolin 2020-06 No Notes: Memori a 0-17 (Same As: l 23:00: Ancef, [place] 00 Kefzol) MEDICATION WASTE Product Size: 1000 mg Product Wasted: ___ mg Lidocaine 2020-06 No Notes: Memori a 0.04 MG/MG 0-17 Apply only l Medicated 23:00: once for Herm mgiuel Patch 00 up to 12 hours in a 24-hour period (12 hours on and 12 hours off). (Same as: Aspercreme Lidocaine Patch) "Remove old patch before applicatio n of new patch" Acetaminoph 2020-06 No Notes: Max Memoria en 0-17 acetaminop l 23:00: hen 4000 [place] 00 mg/day (4 gm/day). (Same as: Tylenol Extra Strength) Cefazolin 2020-06 No Notes: Memori a 0-17 (Same As: l 23:00: Ancef, [place] 00 Kefzol) MEDICATION WASTE Product Size: 1000 mg Product Wasted: ___ mg Lidocaine 2020-06 No Notes: Memori a 0.04 MG/MG 0-17 Apply only l Medicated 23:00: once for Herm miguel Patch 00 up to 12 hours in a 24-hour period (12 hours on and 12 hours off). (Same as: Aspercreme Lidocaine Patch) "Remove old patch before applicatio n of new patch" Acetaminoph 2020-06 No Notes: Max Memoria en 0-17 acetaminop l 23:00: hen 4000 [place] 00 mg/day (4 gm/day). (Same as: Tylenol Extra Strength) Cefazolin 2020-06 No Notes: Memori a 0-17 (Same As: l 23:00: Ancef, [place] 00 Kefzol) MEDICATION WASTE Product Size: 1000 mg Product Wasted: ___ mg Lidocaine 2020-06 No Notes: Memori a 0.04 MG/MG 0-17 Apply only l Medicated 23:00: once for Herm miguel Patch 00 up to 12 hours in a 24-hour period (12 hours on and 12 hours off). (Same as: Aspercreme Lidocaine Patch) "Remove old patch before applicatio n of new patch" Acetaminoph 2020-06 No Notes: Max Memoria en 0-17 acetaminop l 23:00: hen 4000 [place] 00 mg/day (4 gm/day). (Same as: Tylenol Extra Strength) Cefazolin 2020-06 No Notes: Memori a 0-17 (Same As: l 23:00: Ancef, [place] 00 Kefzol) MEDICATION WASTE Product Size: 1000 mg Product Wasted: ___ mg Lidocaine 2020-06 No Notes: Memori a 0.04 MG/MG 0-17 Apply only l Medicated 23:00: once for Herm miguel Patch 00 up to 12 hours in a 24-hour period (12 hours on and 12 hours off). (Same as: Aspercreme Lidocaine Patch) "Remove old patch before applicatio n of new patch" Acetaminoph 2020-06 No Notes: Max Memoria en 0-17 acetaminop l 23:00: hen 4000 [place] 00 mg/day (4 gm/day). (Same as: Tylenol Extra Strength) Cefazolin 2020-06 No Notes: Memori a 0-17 (Same As: l 23:00: Ancef, [place] 00 Kefzol) MEDICATION WASTE Product Size: 1000 mg Product Wasted: ___ mg Lidocaine 2020-06 No Notes: Memori a 0.04 MG/MG 0-17 Apply only l Medicated 23:00: once for Herm miguel Patch 00 up to 12 hours in a 24-hour period (12 hours on and 12 hours off). (Same as: Aspercreme Lidocaine Patch) "Remove old patch before applicatio n of new patch" Acetaminoph 2020-06 No Notes: Max Memoria en 0-17 acetaminop l 23:00: hen 4000 [place] 00 mg/day (4 gm/day). (Same as: Tylenol Extra Strength) Cefazolin 2020-06 No Notes: Memori a 0-17 (Same As: l 23:00: Ancef, [place] 00 Kefzol) MEDICATION WASTE Product Size: 1000 mg Product Wasted: ___ mg Lidocaine 2020-06 No Notes: Memori a 0.04 MG/MG 0-17 Apply only l Medicated 23:00: once for Herm miguel Patch 00 up to 12 hours in a 24-hour period (12 hours on and 12 hours off). (Same as: Aspercreme Lidocaine Patch) "Remove old patch before applicatio n of new patch" Acetaminoph 2020-06 No Notes: Max Memoria en 0-17 acetaminop l 23:00: hen 4000 [place] 00 mg/day (4 gm/day). (Same as: Tylenol Extra Strength) Cefazolin 2020-06 No Notes: Memori a 0-17 (Same As: l 23:00: Ancef, [place] 00 Kefzol) MEDICATION WASTE Product Size: 1000 mg Product Wasted: ___ mg Lidocaine 2020-06 No Notes: Memori a 0.04 MG/MG 0-17 Apply only l Medicated 23:00: once for Herm miguel Patch 00 up to 12 hours in a 24-hour period (12 hours on and 12 hours off). (Same as: Aspercreme Lidocaine Patch) "Remove old patch before applicatio n of new patch" [facility] 2020-06 No Notes: Max Memoria en 0-17 acetaminop l 23:00: hen 4000 [place] 00 mg/day (4 gm/day). (Same as: Tylenol Extra Strength) Cefazolin 2020-06 No Notes: Memori a 0-17 (Same As: l 23:00: Ancef, [place] 00 Kefzol) MEDICATION WASTE Product Size: 1000 mg Product Wasted: ___ mg Lidocaine 2020-06 No Notes: Memori a 0.04 MG/MG 0-17 Apply only l Medicated 23:00: once for Herm miguel Patch 00 up to 12 hours in a 24-hour period (12 hours on and 12 hours off). (Same as: Aspercreme Lidocaine Patch) "[facility]" [facility]: Max Memoria en 0-17 acetaminop l 23:00: hen 4000 [place] 00 mg/day (4 gm/day). (Same as: Tylenol Extra Strength) Cefazolin 2020-06 No Notes: Memori a 0-17 (Same As: l 23:00: Ancef, [place] 00 Kefzol) MEDICATION WASTE Product Size: 1000 mg Product Wasted: ___ mg Lidocaine 2020-06 No Notes: Memori a 0.04 MG/MG 0-17 Apply only l Medicated 23:00: once for Herm miguel Patch 00 up to 12 hours in a 24-hour period (12 hours on and 12 hours off). (Same as: Aspercreme Lidocaine Patch) "Remove old patch before applicatio n of new patch" [facility] 2020-06 No Notes: Max Memoria en 0-17 acetaminop l 23:00: hen 4000 [place] 00 mg/day (4 gm/day). (Same as: Tylenol Extra Strength) Cefazolin 2020-06 No Notes: Memori a 0-17 (Same As: l 23:00: Ancef, [place] 00 Kefzol) MEDICATION WASTE Product Size: 1000 mg Product Wasted: ___ mg Lidocaine 2020-06 No Notes: Memori a 0.04 MG/MG 0-17 Apply only l Medicated 23:00: once for Herm miguel Patch 00 up to 12 hours in a 24-hour period (12 hours on and 12 hours off). (Same as: Aspercreme Lidocaine Patch) "Remove old patch before applicatio n of new patch" Acetaminoph 2020-06 No Notes: Max Memoria en 0-17 acetaminop l 23:00: hen 4000 [place] 00 mg/day (4 gm/day). (Same as: Tylenol Extra Strength) Cefazolin 2020-06 No Notes: Memori a 0-17 (Same As: l 23:00: Ancef, [place] 00 Kefzol) MEDICATION WASTE Product Size: 1000 mg Product Wasted: ___ mg Lidocaine 2020-06 No Notes: Memori a 0.04 MG/MG 0-17 Apply only l Medicated 23:00: once for Herm miguel Patch 00 up to 12 hours in a 24-hour period (12 hours on and 12 hours off). (Same as: Aspercreme Lidocaine Patch) "Remove old patch before applicatio n of new patch" Acetaminoph 2020-06 No Notes: Max Memoria en 0-17 acetaminop l 23:00: hen 4000 [place] 00 mg/day (4 gm/day). (Same as: Tylenol Extra Strength) Cefazolin 2020-06 No Notes: Memori a 0-17 (Same As: l 23:00: Ancef, [place] 00 Kefzol) MEDICATION WASTE Product Size: 1000 mg Product Wasted: ___ mg Lidocaine 2020-06 No Notes: Memori a 0.04 MG/MG 0-17 Apply only l Medicated 23:00: once for Herm miguel Patch 00 up to 12 hours in a 24-hour period (12 hours on and 12 hours off). (Same as: Aspercreme Lidocaine Patch) "Remove old patch before applicatio n of new patch" Acetaminoph 2020-06 No Notes: Max Memoria en 0-17 acetaminop l 23:00: hen 4000 [place] 00 mg/day (4 gm/day). (Same as: Tylenol Extra Strength) Cefazolin 2020-06 No Notes: Memori a 0-17 (Same As: l 23:00: Ancef, [place] 00 Kefzol) MEDICATION WASTE Product Size: 1000 mg Product Wasted: ___ mg Lidocaine 2020-06 No Notes: Memori a 0.04 MG/MG 0-17 Apply only l Medicated 23:00: once for Herm miguel Patch 00 up to 12 hours in a 24-hour period (12 hours on and 12 hours off). (Same as: Aspercreme Lidocaine Patch) "Remove old patch before applicatio n of new patch" Acetaminoph 2020-06 No Notes: Max Memoria en 0-17 acetaminop l 23:00: hen 4000 [place] 00 mg/day (4 gm/day). (Same as: Tylenol Extra Strength) Cefazolin 2020-06 No Notes: Memori a 0-17 (Same As: l 23:00: Ancef, [place] 00 Kefzol) MEDICATION WASTE Product Size: 1000 mg Product Wasted: ___ mg Lidocaine 2020-06 No Notes: Memori a 0.04 MG/MG 0-17 Apply only l Medicated 23:00: once for Herm miguel Patch 00 up to 12 hours in a 24-hour period (12 hours on and 12 hours off). (Same as: Aspercreme Lidocaine Patch) "Remove old patch before applicatio n of new patch" Acetaminoph 2020-06 No Notes: Max Memoria en 0-17 acetaminop l 23:00: hen 4000 [place] 00 mg/day (4 gm/day). (Same as: Tylenol Extra Strength) Cefazolin 2020-06 No Notes: Memori a 0-17 (Same As: l 23:00: Ancef, [place] 00 Kefzol) MEDICATION WASTE Product Size: 1000 mg Product Wasted: ___ mg Lidocaine 2020-06 No Notes: Memori a 0.04 MG/MG 0-17 Apply only l Medicated 23:00: once for Herm miguel Patch 00 up to 12 hours in a 24-hour period (12 hours on and 12 hours off). (Same as: Aspercreme Lidocaine Patch) "Remove old patch before applicatio n of new patch" Acetaminoph 2020-06 No Notes: Max Memoria en 0-17 acetaminop l 23:00: hen 4000 [place] 00 mg/day (4 gm/day). (Same as: Tylenol Extra Strength) Cefazolin 2020-06 No Notes: Memori a 0-17 (Same As: l 23:00: Ancef, [place] 00 Kefzol) MEDICATION WASTE Product Size: 1000 mg Product Wasted: ___ mg Lidocaine 2020-06 No Notes: Memori a 0.04 MG/MG 0-17 Apply only l Medicated 23:00: once for Herm migeul Patch 00 up to 12 hours in a 24-hour period (12 hours on and 12 hours off). (Same as: Aspercreme Lidocaine Patch) "Remove old patch before applicatio n of new patch" Acetaminoph 2020-06 No Notes: Max Memoria en 0-17 acetaminop l 23:00: hen 4000 [place] 00 mg/day (4 gm/day). (Same as: Tylenol Extra Strength) Cefazolin 2020-06 No Notes: Memori a 0-17 (Same As: l 23:00: Ancef, [place] 00 Kefzol) MEDICATION WASTE Product Size: 1000 mg Product Wasted: ___ mg Lidocaine 2020-06 No Notes: Memori a 0.04 MG/MG 0-17 Apply only l Medicated 23:00: once for Herm miguel Patch 00 up to 12 hours in a 24-hour period (12 hours on and 12 hours off). (Same as: Aspercreme Lidocaine Patch) "Remove old patch before applicatio n of new patch" Acetaminoph 2020-06 No Notes: Max Memoria en 0-17 acetaminop l 23:00: hen 4000 [place] 00 mg/day (4 gm/day). (Same as: Tylenol Extra Strength) Cefazolin 2020-06 No Notes: Memori a 0-17 (Same As: l 23:00: Ancef, [place] 00 Kefzol) MEDICATION WASTE Product Size: 1000 mg Product Wasted: ___ mg Lidocaine 2020-06 No Notes: Memori a 0.04 MG/MG 0-17 Apply only l Medicated 23:00: once for Herm miguel Patch 00 up to 12 hours in a 24-hour period (12 hours on and 12 hours off). (Same as: Aspercreme Lidocaine Patch) "Remove old patch before applicatio n of new patch" Acetaminoph 2020-06 No Notes: Max Memoria en 0-17 acetaminop l 23:00: hen 4000 [place] 00 mg/day (4 gm/day). (Same as: Tylenol Extra Strength) Cefazolin 2020-06 No Notes: Memori a 0-17 (Same As: l 23:00: Ancef, [place] 00 Kefzol) MEDICATION WASTE Product Size: 1000 mg Product Wasted: ___ mg Lidocaine 2020-06 No Notes: Memori a 0.04 MG/MG 0-17 Apply only l Medicated 23:00: once for Herm miguel Patch 00 up to 12 hours in a 24-hour period (12 hours on and 12 hours off). (Same as: Aspercreme Lidocaine Patch) "Remove old patch before applicatio n of new patch" Acetaminoph 2020-06 No Notes: Max Memoria en 0-17 acetaminop l 23:00: hen 4000 [place] 00 mg/day (4 gm/day). (Same as: Tylenol Extra Strength) Cefazolin 2020-06 No Notes: Memori a 0-17 (Same As: l 23:00: Ancef, [place] 00 Kefzol) MEDICATION WASTE Product Size: 1000 mg Product Wasted: ___ mg Lidocaine 2020-06 No Notes: Memori a 0.04 MG/MG 0-17 Apply only l Medicated 23:00: once for Herm miguel Patch 00 up to 12 hours in a 24-hour period (12 hours on and 12 hours off). (Same as: Aspercreme Lidocaine Patch) "Remove old patch before applicatio n of new patch" Acetaminoph 2020-06 No Notes: Max Memoria en 0-17 acetaminop l 23:00: hen 4000 [place] 00 mg/day (4 gm/day). (Same as: Tylenol Extra Strength) Cefazolin 2020-06 No Notes: Memori a 0-17 (Same As: l 23:00: Ancef, [place] 00 Kefzol) MEDICATION WASTE Product Size: 1000 mg Product Wasted: ___ mg Lidocaine 2020-06 No Notes: Memori a 0.04 MG/MG 0-17 Apply only l Medicated 23:00: once for Herm miguel Patch 00 up to 12 hours in a 24-hour period (12 hours on and 12 hours off). (Same as: Aspercreme Lidocaine Patch) "Remove old patch before applicatio n of new patch" Acetaminoph 2020-06 No Notes: Max Memoria en 0-17 acetaminop l 23:00: hen 4000 [place] 00 mg/day (4 gm/day). (Same as: Tylenol Extra Strength) Cefazolin 2020-06 No Notes: Memori a 0-17 (Same As: l 23:00: Ancef, [place] 00 Kefzol) MEDICATION WASTE Product Size: 1000 mg Product Wasted: ___ mg Lidocaine 2020-06 No Notes: Memori a 0.04 MG/MG 0-17 Apply only l Medicated 23:00: once for Herm miguel Patch 00 up to 12 hours in a 24-hour period (12 hours on and 12 hours off). (Same as: Aspercreme Lidocaine Patch) "Remove old patch before applicatio n of new patch" Acetaminoph 2020-06 No Notes: Max Memoria en 0-17 acetaminop l 23:00: hen 4000 [place] 00 mg/day (4 gm/day). (Same as: Tylenol Extra Strength) Cefazolin 2020-06 No Notes: Memori a 0-17 (Same As: l 23:00: Ancef, [place] 00 Kefzol) MEDICATION WASTE Product Size: 1000 mg Product Wasted: ___ mg Lidocaine 2020-06 No Notes: Memori a 0.04 MG/MG 0-17 Apply only l Medicated 23:00: once for Herm miguel Patch 00 up to 12 hours in a 24-hour period (12 hours on and 12 hours off). (Same as: Aspercreme Lidocaine Patch) "Remove old patch before applicatio n of new patch" Acetaminoph 2020-06 No Notes: Max Memoria en 0-17 acetaminop l 23:00: hen 4000 [place] 00 mg/day (4 gm/day). (Same as: Tylenol Extra Strength) Cefazolin 2020-06 No Notes: Memori a 0-17 (Same As: l 23:00: Ancef, [place] 00 Kefzol) MEDICATION WASTE Product Size: 1000 mg Product Wasted: ___ mg Lidocaine 2020-06 No Notes: Memori a 0.04 MG/MG 0-17 Apply only l Medicated 23:00: once for Herm miguel Patch 00 up to 12 hours in a 24-hour period (12 hours on and 12 hours off). (Same as: Aspercreme Lidocaine Patch) "Remove old patch before applicatio n of new patch" Acetaminoph 2020-06 No Notes: Max Memoria en 0-17 acetaminop l 23:00: hen 4000 [place] 00 mg/day (4 gm/day). (Same as: Tylenol Extra Strength) Cefazolin 2020-06 No Notes: Memori a 0-17 (Same As: l 23:00: Ancef, [place] 00 Kefzol) MEDICATION WASTE Product Size: 1000 mg Product Wasted: ___ mg Lidocaine 2020-06 No Notes: Memori a 0.04 MG/MG 0-17 Apply only l Medicated 23:00: once for Herm miguel Patch 00 up to 12 hours in a 24-hour period (12 hours on and 12 hours off). (Same as: Aspercreme Lidocaine Patch) "Remove old patch before applicatio n of new patch" Acetaminoph 2020-06 No Notes: Max Memoria en 0-17 acetaminop l 23:00: hen 4000 [place] 00 mg/day (4 gm/day). (Same as: Tylenol Extra Strength) Cefazolin 2020-06 No Notes: Memori a 0-17 (Same As: l 23:00: Ancef, [place] 00 Kefzol) MEDICATION WASTE Product Size: 1000 mg Product Wasted: ___ mg Lidocaine 2020-06 No Notes: Memori a 0.04 MG/MG 0-17 Apply only l Medicated 23:00: once for Herm miguel Patch 00 up to 12 hours in a 24-hour period (12 hours on and 12 hours off). (Same as: Aspercreme Lidocaine Patch) "Remove old patch before applicatio n of new patch" Acetaminoph 2020-06 No Notes: Max Memoria en 0-17 acetaminop l 23:00: hen 4000 [place] 00 mg/day (4 gm/day). (Same as: Tylenol Extra Strength) Cefazolin 2020-06 No Notes: Memori a 0-17 (Same As: l 23:00: Ancef, [place] 00 Kefzol) MEDICATION WASTE Product Size: 1000 mg Product Wasted: ___ mg Lidocaine 2020-06 No Notes: Memori a 0.04 MG/MG 0-17 Apply only l Medicated 23:00: once for Herm miguel Patch 00 up to 12 hours in a 24-hour period (12 hours on and 12 hours off). (Same as: Aspercreme Lidocaine Patch) "Remove old patch before applicatio n of new patch" [facility]etamino 2020-06 No Notes: Max Memoria en 0-17 acetaminop l 23:00: hen 4000 [place] 00 mg/day (4 gm/day). (Same as: Tylenol Extra Strength) Cefazolin 2020-06 No Notes: Memori a 0-17 (Same As: l 23:00: Ancef, [place] 00 Kefzol) MEDICATION WASTE Product Size: 1000 mg Product Wasted: ___ mg Lidocaine 2020-06 No Notes: Memori a 0.04 MG/MG 0-17 Apply only l Medicated 23:00: once for Herm miguel Patch 00 up to 12 hours in a 24-hour period (12 hours on and 12 hours off). (Same as: Aspercreme Lidocaine Patch) "Remove old patch before applicatio n of new patch" Acetaminoph 2020-06 No Notes: Max Memoria en 0-17 acetaminop l 23:00: hen 4000 [place] 00 mg/day (4 gm/day). (Same as: Tylenol Extra Strength) Cefazolin 2020-06 No Notes: Memori a 0-17 (Same As: l 23:00: Ancef, [place] 00 Kefzol) MEDICATION WASTE Product Size: 1000 mg Product Wasted: ___ mg Lidocaine 2020-06 No Notes: Memori a 0.04 MG/MG 0-17 Apply only l Medicated 23:00: once for Herm miguel Patch 00 up to 12 hours in a 24-hour period (12 hours on and 12 hours off). (Same as: Aspercreme Lidocaine Patch) "Remove old patch before applicatio n of new patch" Acetaminoph 2020-06 No Notes: Max Memoria en 0-17 acetaminop l 23:00: hen 4000 [place] 00 mg/day (4 gm/day). (Same as: Tylenol Extra Strength) Cefazolin 2020-06 No Notes: Memori a 0-17 (Same As: l 23:00: Ancef, [place] 00 Kefzol) MEDICATION WASTE Product Size: 1000 mg Product Wasted: ___ mg Lidocaine 2020-06 No Notes: Memori a 0.04 MG/MG 0-17 Apply only l Medicated 23:00: once for Herm miguel Patch 00 up to 12 hours in a 24-hour period (12 hours on and 12 hours off). (Same as: Aspercreme Lidocaine Patch) "Remove old patch before applicatio n of new patch" Acetaminoph 2020-06 No Notes: Max Memoria en 0-17 acetaminop l 23:00: hen 4000 [place] 00 mg/day (4 gm/day). (Same as: Tylenol Extra Strength) Cefazolin 2020-06 No Notes: Memori a 0-17 (Same As: l 23:00: Ancef, [place] 00 Kefzol) MEDICATION WASTE Product Size: 1000 mg Product Wasted: ___ mg Lidocaine 2020-06 No Notes: Memori a 0.04 MG/MG 0-17 Apply only l Medicated 23:00: once for Herm miguel Patch 00 up to 12 hours in a 24-hour period (12 hours on and 12 hours off). (Same as: Aspercreme Lidocaine Patch) "Remove old patch before applicatio n of new patch" Acetaminoph 2020-06 No Notes: Max Memoria en 0-17 acetaminop l 23:00: hen 4000 [place] 00 mg/day (4 gm/day). (Same as: Tylenol Extra Strength) Oxycodone 2020-06 No Notes: Memori a Hydrochlori 0-17 (Same as: l de 5 MG 22:46: Roxicodone Herm miguel Oral Tablet 00 ) Morphine 2020-06 No Notes: Memoria 0-17 (Same l 22:46: as:MORPhin [place] 00 e Sulfate) Naloxone 2020-06 No Notes: Memoria 0-17 Same as l 22:46: Narcan [place] Bisacodyl 2020-06 No Notes: Memori a 0-17 (Same As: l 22:46: Dulcolax, [place] 00 Bisco-Lax) tizanidine 2020-06 No Notes: Memor ia 0-17 (Same As: l 22:46: Zanaflex) [place] 00 Ondansetron 2020-06 No Notes: Sherman timbo 0-17 (Same as: l 22:46: Zofran) [place] 00 MEDICATION WASTE Product Size: 4 mg Product Wasted: ___ mg Trazodone 2020-06 No Notes: Memori a 0-17 (Same As: l 22:46: Desyrel) [place] Oxycodone 2020-06 No Notes: Memori a Hydrochlori 0-17 (Same as: l de 5 MG 22:46: Roxicodone Herm mgiuel Oral Tablet 00 ) Morphine 2020-06 No Notes: Memoria 0-17 (Same l 22:46: as:MORPhin [place] 00 e Sulfate) Naloxone 2020-06 No Notes: Memoria 0-17 Same as l 22:46: Narcan [place] Bisacodyl 2020-06 No Notes: Memori a 0-17 (Same As: l 22:46: Dulcolax, [place] 00 Bisco-Lax) tizanidine 2020-06 No Notes: Memor ia 0-17 (Same As: l 22:46: Zanaflex) [place] Ondansetron 2020-06 No Notes: Sherman timbo 0-17 (Same as: l 22:46: Zofran) [place] 00 MEDICATION WASTE Product Size: 4 mg Product Wasted: ___ mg Trazodone 2020-06 No Notes: Memori a 0-17 (Same As: l 22:46: Desyrel) [place] Oxycodone 2020-06 No Notes: Memori a Hydrochlori 0-17 (Same as: l de 5 MG 22:46: Roxicodone Herm miguel Oral Tablet 00 ) Morphine 2020-06 No Notes: Memoria 0-17 (Same l 22:46: as:MORPhin [place] 00 e Sulfate) Naloxone 2020-06 No Notes: Memoria 0-17 Same as l 22:46: Narcan Ran Bisacodyl 2020-06 No Notes: Memori a 0-17 (Same As: l 22:46: Dulcolax, Arn [place]-Lax) tizanidine 2020-06 No Notes: Memor ia 0-17 (Same As: l 22:46: Zanaflex) [place] 00 Ondansetron 2020-06 No Notes: Sherman timbo 0-17 (Same as: l 22:46: Zofran) Ran 00 MEDICATION WASTE Product Size: 4 mg Product Wasted: ___ mg Trazodone 2020-06 No Notes: Memori a 0-17 (Same As: l 22:46: Desyrel) Ran 00 Oxycodone 2020-06 No Notes: Memori a Hydrochlori 0-17 (Same as: l de 5 MG 22:46: Roxicodone Herm miguel Oral Tablet 00 ) Morphine 2020-06 No Notes: Memoria 0-17 (Same l 22:46: as:MORPhin Ran 00 e Sulfate) Naloxone 2020-06 No Notes: Memoria 0-17 Same as l 22:46: Narcan [place] Bisacodyl 2020-06 No Notes: Memori a 0-17 (Same As: l 22:46: Dulcolax, [place] 00 Bisco-Lax) tizanidine 2020-06 No Notes: Memor ia 0-17 (Same As: l 22:46: Zanaflex) [place] 00 Ondansetron 2020-06 No Notes: Sherman timbo 0-17 (Same as: l 22:46: Zofran) Ran MEDICATION WASTE Product Size: 4 mg Product Wasted: ___ mg Trazodone 2020-06 No Notes: Memori a 0-17 (Same As: l 22:46: Desyrel) [place] 00 Oxycodone 2020-06 No Notes: Memori a Hydrochlori 0-17 (Same as: l de 5 MG 22:46: Roxicodone Herm miguel Oral Tablet 00 ) Morphine 2020-06 No Notes: Memoria 0-17 (Same l 22:46: as:MORPhin Ran 00 e Sulfate) Naloxone 2020-06 No Notes: Memoria 0-17 Same as l 22:46: Narcan Ran 00 Bisacodyl 2020-06 No Notes: Memori a 0-17 (Same As: l 22:46: Dulcolax, Ran 00 B[place]-Lax) tizanidine 2020-06 No Notes: Memor ia 0-17 (Same As: l 22:46: Zanaflex) [place] 00 Ondansetron 2020-06 No Notes: Sherman timbo 0-17 (Same as: l 22:46: Zofran) Ran 00 MEDICATION WASTE Product Size: 4 mg Product Wasted: ___ mg Trazodone 2020-06 No Notes: Memori a 0-17 (Same As: l 22:46: Desyrel) Ran Oxycodone 2020-06 No Notes: Memori a Hydrochlori 0-17 (Same as: l de 5 MG 22:46: Roxicodone Herm miguel Oral Tablet 00 ) Morphine 2020-06 No Notes: Memoria 0-17 (Same l 22:46: as:MORPhin Ran 00 e Sulfate) Naloxone 2020-06 No Notes: Memoria 0-17 Same as l 22:46: Narcan [place] 00 Bisacodyl 2020-06 No Notes: Memori a 0-17 (Same As: l 22:46: Dulcolax, [place] 00 Bisco-Lax) tizanidine 2020-06 No Notes: Memor ia 0-17 (Same As: l 22:46: Zanaflex) Ran Ondansetron 2020-06 No Notes: Sherman timbo 0-17 (Same as: l 22:46: Zofran) Ran 00 MEDICATION WASTE Product Size: 4 mg Product Wasted: ___ mg Trazodone 2020-06 No Notes: Memori a 0-17 (Same As: l 22:46: Desyrel) [place] 00 Oxycodone 2020-06 No Notes: Memori a Hydrochlori 0-17 (Same as: l de 5 MG 22:46: Roxicodone Herm miguel Oral Tablet 00 ) Morphine 2020-06 No Notes: Memoria 0-17 (Same l 22:46: as:MORPhin Ran 00 e Sulfate) Naloxone 2020-06 No Notes: Memoria 0-17 Same as l 22:46: Narcan [place] 00 Bisacodyl 2020-06 No Notes: Memori a 0-17 (Same As: l 22:46: Dulcolax, [place] 00 Bisco-Lax) tizanidine 2020-06 No Notes: Memor ia 0-17 (Same As: l 22:46: Zanaflex) [place] 00 Ondansetron 2020-06 No Notes: Sherman timbo 0-17 (Same as: l 22:46: Zofran) [place] 00 MEDICATION WASTE Product Size: 4 mg Product Wasted: ___ mg Trazodone 2020-06 No Notes: Memori a 0-17 (Same As: l 22:46: Desyrel) Ran 00 Oxycodone 2020-06 No Notes: Memori a Hydrochlori 0-17 (Same as: l de 5 MG 22:46: Roxicodone Herm miguel Oral Tablet 00 ) Morphine 2020-06 No Notes: Memoria 0-17 (Same l 22:46: as:MORPhin Ran 00 e Sulfate) Naloxone 2020-06 No Notes: Memoria 0-17 Same as l 22:46: Narcan [place] Bisacodyl 2020-06 No Notes: Memori a 0-17 (Same As: l 22:46: Dulcolax, [place] 00 Bisco-Lax) tizanidine 2020-06 No Notes: Memor ia 0-17 (Same As: l 22:46: Zanaflex) Ran 00 Ondansetron 2020-06 No Notes: Sherman timbo 0-17 (Same as: l 22:46: Zofran) Ran 00 MEDICATION WASTE Product Size: 4 mg Product Wasted: ___ mg Trazodone 2020-06 No Notes: Memori a 0-17 (Same As: l 22:46: Desyrel) Ran Oxycodone 2020-06 No Notes: Memori a Hydrochlori 0-17 (Same as: l de 5 MG 22:46: Roxicodone Herm miguel Oral Tablet 00 ) Morphine 2020-06 No Notes: Memoria 0-17 (Same l 22:46: as:MORPhin Ran 00 e Sulfate) Naloxone 2020-06 No Notes: Memoria 0-17 Same as l 22:46: Narcan Ran Bisacodyl 2020-06 No Notes: Memori a 0-17 (Same As: l 22:46: Dulcolax, [place] 00 Bisco-Lax) tizanidine 2020-06 No Notes: Memor ia 0-17 (Same As: l 22:46: Zanaflex) Ran 00 Ondansetron 2020-06 No Notes: Sherman timbo 0-17 (Same as: l 22:46: Zofran) [place] 00 MEDICATION WASTE Product Size: 4 mg Product Wasted: ___ mg Trazodone 2020-06 No Notes: Memori a 0-17 (Same As: l 22:46: Desyrel) [place] 00 Oxycodone 2020-06 No Notes: Memori a Hydrochlori 0-17 (Same as: l de 5 MG 22:46: Roxicodone Herm miguel Oral Tablet ) Morphine 2020-06 No Notes: Memoria 0-17 (Same l 22:46: as:MORPhin Ran 00 e Sulfate) Naloxone 2020-06 No Notes: Memoria 0-17 Same as l 22:46: Narcan [place] Bisacodyl 2020-06 No Notes: Memori a 0-17 (Same As: l 22:46: Dulcolax, [place] 00 Bisco-Lax) tizanidine 2020-06 No Notes: Memor ia 0-17 (Same As: l 22:46: Zanaflex) [place] 00 Ondansetron 2020-06 No Notes: Sherman timbo 0-17 (Same as: l 22:46: Zofran) [place] 00 MEDICATION WASTE Product Size: 4 mg Product Wasted: ___ mg Trazodone 2020-06 No Notes: Memori a 0-17 (Same As: l 22:46: Desyrel) Ran Oxycodone 2020-06 No Notes: Memori a Hydrochlori 0-17 (Same as: l de 5 MG 22:46: Roxicodone Herm miguel Oral Tablet 00 ) Morphine 2020-06 No Notes: Memoria 0-17 (Same l 22:46: as:MORPhin Ran 00 e Sulfate) Naloxone 2020-06 No Notes: Memoria 0-17 Same as l 22:46: Narcan Ran Bisacodyl 2020-06 No Notes: Memori a 0-17 (Same As: l 22:46: Dulcolax, [place] 00 Bisco-Lax) tizanidine 2020-06 No Notes: Memor ia 0-17 (Same As: l 22:46: Zanaflex) [place] 00 Ondansetron 2020-06 No Notes: Sherman timbo 0-17 (Same as: l 22:46: Zofran) [place] 00 MEDICATION WASTE Product Size: 4 mg Product Wasted: ___ mg Trazodone 2020-06 No Notes: Memori a 0-17 (Same As: l 22:46: Desyrel) [place] Oxycodone 2020-06 No Notes: Memori a Hydrochlori 0-17 (Same as: l de 5 MG 22:46: Roxicodone Herm miguel Oral Tablet 00 ) Morphine 2020-06 No Notes: Memoria 0-17 (Same l 22:46: as:MORPhin Ran 00 e Sulfate) Naloxone 2020-06 No Notes: Memoria 0-17 Same as l 22:46: Narcan Ran Bisacodyl 2020-06 No Notes: Memori a 0-17 (Same As: l 22:46: Dulcolax, Ran 00 B[place]-Lax) tizanidine 2020-06 No Notes: Memor ia 0-17 (Same As: l 22:46: Zanaflex) [place] Ondansetron 2020-06 No Notes: Sherman timbo 0-17 (Same as: l 22:46: Zofran) Ran 00 MEDICATION WASTE Product Size: 4 mg Product Wasted: ___ mg Trazodone 2020-06 No Notes: Memori a 0-17 (Same As: l 22:46: Desyrel) [place] Oxycodone 2020-06 No Notes: Memori a Hydrochlori 0-17 (Same as: l de 5 MG 22:46: Roxicodone Herm miguel Oral Tablet 00 ) Morphine 2020-06 No Notes: Memoria 0-17 (Same l 22:46: as:MORPhin Ran 00 e Sulfate) Naloxone 2020-06 No Notes: Memoria 0-17 Same as l 22:46: Narcan [place] 00 Bisacodyl 2020-06 No Notes: Memori a 0-17 (Same As: l 22:46: Dulcolax, [place] 00 Bisco-Lax) tizanidine 2020-06 No Notes: Memor ia 0-17 (Same As: l 22:46: Zanaflex) [place] 00 Ondansetron 2020-06 No Notes: Sherman timbo 0-17 (Same as: l 22:46: Zofran) Ran 00 MEDICATION WASTE Product Size: 4 mg Product Wasted: ___ mg Trazodone 2020-06 No Notes: Memori a 0-17 (Same As: l 22:46: Desyrel) Ran 00 Oxycodone 2020-06 No Notes: Memori a Hydrochlori 0-17 (Same as: l de 5 MG 22:46: Roxicodone Herm miguel Oral Tablet 00 ) Morphine 2020-06 No Notes: Memoria 0-17 (Same l 22:46: as:MORPhin Ran 00 e Sulfate) Naloxone 2020-06 No Notes: Memoria 0-17 Same as l 22:46: Narcan [place] 00 Bisacodyl 2020-06 No Notes: Memori a 0-17 (Same As: l 22:46: Dulcolax, [place] 00 Bisco-Lax) tizanidine 2020-06 No Notes: Memor ia 0-17 (Same As: l 22:46: Zanaflex) [place] Ondansetron 2020-06 No Notes: Sherman timbo 0-17 (Same as: l 22:46: Zofran) Ran 00 MEDICATION WASTE Product Size: 4 mg Product Wasted: ___ mg Trazodone 2020-06 No Notes: Memori a 0-17 (Same As: l 22:46: Desyrel) Ran Oxycodone 2020-06 No Notes: Memori a Hydrochlori 0-17 (Same as: l de 5 MG 22:46: Roxicodone Herm miguel Oral Tablet 00 ) Morphine 2020-06 No Notes: Memoria 0-17 (Same l 22:46: as:MORPhin [place] 00 e Sulfate) Naloxone 2020-06 No Notes: Memoria 0-17 Same as l 22:46: Narcan [place] Bisacodyl 2020-06 No Notes: Memori a 0-17 (Same As: l 22:46: Dulcolax, Ran 00 [place]-Lax) tizanidine 2020-06 No Notes: Memor ia 0-17 (Same As: l 22:46: Zanaflex) [place] 00 Ondansetron 2020-06 No Notes: Sherman timbo 0-17 (Same as: l 22:46: Zofran) Ran 00 MEDICATION WASTE Product Size: 4 mg Product Wasted: ___ mg Trazodone 2020-06 No Notes: Memori a 0-17 (Same As: l 22:46: Desyrel) [place] Oxycodone 2020-06 No Notes: Memori a Hydrochlori 0-17 (Same as: l de 5 MG 22:46: Roxicodone Herm miguel Oral Tablet 00 ) Morphine 2020-06 No Notes: Memoria 0-17 (Same l 22:46: as:MORPhin Ran 00 e Sulfate) Naloxone 2020-06 No Notes: Memoria 0-17 Same as l 22:46: Narcan [place] 00 Bisacodyl 2020-06 No Notes: Memori a 0-17 (Same As: l 22:46: Dulcolax, [place] 00 B[place]-Lax) tizanidine 2020-06 No Notes: Memor ia 0-17 (Same As: l 22:46: Zanaflex) Ran 00 Ondansetron 2020-06 No Notes: Sherman timbo 0-17 (Same as: l 22:46: Zofran) Ran 00 MEDICATION WASTE Product Size: 4 mg Product Wasted: ___ mg Trazodone 2020-06 No Notes: Memori a 0-17 (Same As: l 22:46: Desyrel) [place] 00 Oxycodone 2020-06 No Notes: Memori a Hydrochlori 0-17 (Same as: l de 5 MG 22:46: Roxicodone Herm miguel Oral Tablet 00 ) Morphine 2020-06 No Notes: Memoria 0-17 (Same l 22:46: as:MORPhin [place] 00 e Sulfate) Naloxone 2020-06 No Notes: Memoria 0-17 Same as l 22:46: Narcan [place] 00 Bisacodyl 2020-06 No Notes: Memori a 0-17 (Same As: l 22:46: Dulcolax, [place] 00 [place]-Lax) tizanidine 2020-06 No Notes: Memor ia 0-17 (Same As: l 22:46: Zanaflex) [place] Ondansetron 2020-06 No Notes: Sherman timbo 0-17 (Same as: l 22:46: Zofran) [place] 00 MEDICATION WASTE Product Size: 4 mg Product Wasted: ___ mg Trazodone 2020-06 No Notes: Memori a 0-17 (Same As: l 22:46: Desyrel) Ran 00 Oxycodone 2020-06 No Notes: Memori a Hydrochlori 0-17 (Same as: l de 5 MG 22:46: Roxicodone Herm miguel Oral Tablet 00 ) Morphine 2020-06 No Notes: Memoria 0-17 (Same l 22:46: as:MORPhin [place] 00 e Sulfate) Naloxone 2020-06 No Notes: Memoria 0-17 Same as l 22:46: Narcan [place] 00 Bisacodyl 2020-06 No Notes: Memori a 0-17 (Same As: l 22:46: Dulcolax, Ran 00 [place]-Lax) tizanidine 2020-06 No Notes: Memor ia 0-17 (Same As: l 22:46: Zanaflex) [place] 00 Ondansetron 2020-06 No Notes: Sherman timbo 0-17 (Same as: l 22:46: Zofran) [place] 00 MEDICATION WASTE Product Size: 4 mg Product Wasted: ___ mg Trazodone 2020-06 No Notes: Memori a 0-17 (Same As: l 22:46: Desyrel) Ran 00 Oxycodone 2020-06 No Notes: Memori a Hydrochlori 0-17 (Same as: l de 5 MG 22:46: Roxicodone Herm miguel Oral Tablet 00 ) Morphine 2020-06 No Notes: Memoria 0-17 (Same l 22:46: as:MORPhin [place] 00 e Sulfate) Naloxone 2020-06 No Notes: Memoria 0-17 Same as l 22:46: Narcan Ran 00 Bisacodyl 2020-06 No Notes: Memori a 0-17 (Same As: l 22:46: Dulcolax, [place] 00 B[place]-Lax) tizanidine 2020-06 No Notes: Memor ia 0-17 (Same As: l 22:46: Zanaflex) Ran Ondansetron 2020-06 No Notes: Sherman timbo 0-17 (Same as: l 22:46: Zofran) Ran 00 MEDICATION WASTE Product Size: 4 mg Product Wasted: ___ mg Trazodone 2020-06 No Notes: Memori a 0-17 (Same As: l 22:46: Desyrel) Ran 00 Oxycodone 2020-06 No Notes: Memori a Hydrochlori 0-17 (Same as: l de 5 MG 22:46: Roxicodone Herm miguel Oral Tablet 00 ) Morphine 2020-06 No Notes: Memoria 0-17 (Same l 22:46: as:MORPhin [place] 00 e Sulfate) Naloxone 2020-06 No Notes: Memoria 0-17 Same as l 22:46: Narcan [place] 00 Bisacodyl 2020-06 No Notes: Memori a 0-17 (Same As: l 22:46: Dulcolax, [place] 00 B[place]-Lax) tizanidine 2020-06 No Notes: Memor ia 0-17 (Same As: l 22:46: Zanaflex) Ran Ondansetron 2020-06 No Notes: Sherman timbo 0-17 (Same as: l 22:46: Zofran) Ran 00 MEDICATION WASTE Product Size: 4 mg Product Wasted: ___ mg Trazodone 2020-06 No Notes: Memori a 0-17 (Same As: l 22:46: Desyrel) Ran Oxycodone 2020-06 No Notes: Memori a Hydrochlori 0-17 (Same as: l de 5 MG 22:46: Roxicodone Herm miguel Oral Tablet ) Morphine 2020-06 No Notes: Memoria 0-17 (Same l 22:46: as:MORPhin Ran 00 e Sulfate) Naloxone 2020-06 No Notes: Memoria 0-17 Same as l 22:46: Narcan Ran Bisacodyl 2020-06 No Notes: Memori a 0-17 (Same As: l 22:46: Dulcolax, [place] 00 B[place]-Lax) tizanidine 2020-06 No Notes: Memor ia 0-17 (Same As: l 22:46: Zanaflex) Ran 00 Ondansetron 2020-06 No Notes: Sherman timbo 0-17 (Same as: l 22:46: Zofran) [place] 00 MEDICATION WASTE Product Size: 4 mg Product Wasted: ___ mg Trazodone 2020-06 No Notes: Memori a 0-17 (Same As: l 22:46: Desyrel) [place] Oxycodone 2020-06 No Notes: Memori a Hydrochlori 0-17 (Same as: l de 5 MG 22:46: Roxicodone Herm miguel Oral Tablet ) Morphine 2020-06 No Notes: Memoria 0-17 (Same l 22:46: as:MORPhin Ran 00 e Sulfate) Naloxone 2020-06 No Notes: Memoria 0-17 Same as l 22:46: Narcan [place] Bisacodyl 2020-06 No Notes: Memori a 0-17 (Same As: l 22:46: Dulcolax, Ran 00 [place]-Lax) tizanidine 2020-06 No Notes: Memor ia 0-17 (Same As: l 22:46: Zanaflex) Ran Ondansetron 2020-06 No Notes: Sherman timbo 0-17 (Same as: l 22:46: Zofran) [place] 00 MEDICATION WASTE Product Size: 4 mg Product Wasted: ___ mg Trazodone 2020-06 No Notes: Memori a 0-17 (Same As: l 22:46: Desyrel) Ran Oxycodone 2020-06 No Notes: Memori a Hydrochlori 0-17 (Same as: l de 5 MG 22:46: Roxicodone Herm miguel Oral Tablet 00 ) Morphine 2020-06 No Notes: Memoria 0-17 (Same l 22:46: as:MORPhin [place] 00 e Sulfate) Naloxone 2020-06 No Notes: Memoria 0-17 Same as l 22:46: Narcan [place] Bisacodyl 2020-06 No Notes: Memori a 0-17 (Same As: l 22:46: Dulcolax, Ran 00 [place]-Lax) tizanidine 2020-06 No Notes: Memor ia 0-17 (Same As: l 22:46: Zanaflex) [place] 00 Ondansetron 2020-06 No Notes: Sherman timbo 0-17 (Same as: l 22:46: Zofran) [place] 00 MEDICATION WASTE Product Size: 4 mg Product Wasted: ___ mg Oxycodone 2020-06 No Notes: Memori a Hydrochlori 0-17 (Same as: l de 5 MG 22:46: Roxicodone Herm miguel Oral Tablet 00 ) Morphine 2020-06 No Notes: Memoria 0-17 (Same l 22:46: as:MORPhin [place] 00 e Sulfate) Naloxone 2020-06 No Notes: Memoria 0-17 Same as l 22:46: Narcan [place] Bisacodyl 2020-06 No Notes: Memori a 0-17 (Same As: l 22:46: Dulcolax, Ran 00 [place]-Lax) Trazodone 2020-06 No Notes: Memori a 0-17 (Same As: l 22:46: Desyrel) [place] tizanidine 2020-06 No Notes: Memor ia 0-17 (Same As: l 22:46: Zanaflex) Ran 00 Ondansetron 2020-06 No Notes: Sherman timbo 0-17 (Same as: l 22:46: Zofran) [place] 00 MEDICATION WASTE Product Size: 4 mg Product Wasted: ___ mg Trazodone 2020-06 No Notes: Memori a 0-17 (Same As: l 22:46: Desyrel) [place] Oxycodone 2020-06 No Notes: Memori a Hydrochlori 0-17 (Same as: l de 5 MG 22:46: Roxicodone Herm miguel Oral Tablet ) Morphine 2020-06 No Notes: Memoria 0-17 (Same l 22:46: as:MORPhin [place] 00 e Sulfate) Naloxone 2020-06 No Notes: Memoria 0-17 Same as l 22:46: Narcan [place] 00 Bisacodyl 2020-06 No Notes: Memori a 0-17 (Same As: l 22:46: Dulcolax, Ran 00 [place]-Lax) tizanidine 2020-06 No Notes: Memor ia 0-17 (Same As: l 22:46: Zanaflex) [place] 00 Ondansetron 2020-06 No Notes: Sherman timbo 0-17 (Same as: l 22:46: Zofran) Ran 00 MEDICATION WASTE Product Size: 4 mg Product Wasted: ___ mg Trazodone 2020-06 No Notes: Memori a 0-17 (Same As: l 22:46: Desyrel) Ran Oxycodone 2020-06 No Notes: Memori a Hydrochlori 0-17 (Same as: l de 5 MG 22:46: Roxicodone Herm miguel Oral Tablet ) Morphine 2020-06 No Notes: Memoria 0-17 (Same l 22:46: as:MORPhin [place] 00 e Sulfate) Naloxone 2020-06 No Notes: Memoria 0-17 Same as l 22:46: Narcan [place] 00 Bisacodyl 2020-06 No Notes: Memori a 0-17 (Same As: l 22:46: Dulcolax, Ran 00 [place]-Lax) tizanidine 2020-06 No Notes: Memor ia 0-17 (Same As: l 22:46: Zanaflex) Ran 00 Ondansetron 2020-06 No Notes: Sherman timbo 0-17 (Same as: l 22:46: Zofran) Ran 00 MEDICATION WASTE Product Size: 4 mg Product Wasted: ___ mg Trazodone 2020-06 No Notes: Memori a 0-17 (Same As: l 22:46: Desyrel) [place] Oxycodone 2020-06 No Notes: Memori a Hydrochlori 0-17 (Same as: l de 5 MG 22:46: Roxicodone Herm miguel Oral Tablet ) Morphine 2020-06 No Notes: Memoria 0-17 (Same l 22:46: as:MORPhin [place] 00 e Sulfate) Naloxone 2020-06 No Notes: Memoria 0-17 Same as l 22:46: Narcan [place] 00 Bisacodyl 2020-06 No Notes: Memori a 0-17 (Same As: l 22:46: Dulcolax, Ran 00 [place]-Lax) tizanidine 2020-06 No Notes: Memor ia 0-17 (Same As: l 22:46: Zanaflex) Ondansetron 2020-06 No Notes: Sherman timbo 0-17 (Same as: l 22:46: Zofran) MEDICATION WASTE Product Size: 4 mg Product Wasted: ___ mg Trazodone 2020-06 No Notes: Memori a 0-17 (Same As: l 22:46: Desyrel) Ran Oxycodone 2020-06 No Notes: Memori a Hydrochlori 0-17 (Same as: l de 5 MG 22:46: Roxicodone Herm miguel Oral Tablet ) Morphine 2020-06 No Notes: Memoria 0-17 (Same l 22:46: as:MORPhin Ran 00 e Sulfate) Naloxone 2020-06 No Notes: Memoria 0-17 Same as l 22:46: Narcan [place] 00 Bisacodyl 2020-06 No Notes: Memori a 0-17 (Same As: l 22:46: Dulcolax, [place] 00 B[place]-Lax) tizanidine 2020-06 No Notes: Memor ia 0-17 (Same As: l 22:46: Zanaflex) Ran Ondansetron 2020-06 No Notes: Sherman timbo 0-17 (Same as: l 22:46: Zofran) [place] 00 MEDICATION WASTE Product Size: 4 mg Product Wasted: ___ mg Trazodone 2020-06 No Notes: Memori a 0-17 (Same As: l 22:46: Desyrel) Ran Oxycodone 2020-06 No Notes: Memori a Hydrochlori 0-17 (Same as: l de 5 MG 22:46: Roxicodone Herm miguel Oral Tablet 00 ) Morphine 2020-06 No Notes: Memoria 0-17 (Same l 22:46: as:MORPhin Ran 00 e Sulfate) Naloxone 2020-06 No Notes: Memoria 0-17 Same as l 22:46: Narcan Ran Bisacodyl 2020-06 No Notes: Memori a 0-17 (Same As: l 22:46: Dulcolax, Ran 00 [place]-Lax) tizanidine 2020-06 No Notes: Memor ia 0-17 (Same As: l 22:46: Zanaflex) [place] 00 Ondansetron 2020-06 No Notes: Sherman timbo 0-17 (Same as: l 22:46: Zofran) [place] 00 MEDICATION WASTE Product Size: 4 mg Product Wasted: ___ mg Trazodone 2020-06 No Notes: Memori a 0-17 (Same As: l 22:46: Desyrel) Ran Oxycodone 2020-06 No Notes: Memori a Hydrochlori 0-17 (Same as: l de 5 MG 22:46: Roxicodone Herm miguel Oral Tablet 00 ) Morphine 2020-06 No Notes: Memoria 0-17 (Same l 22:46: as:MORPhin [place] 00 e Sulfate) Naloxone 2020-06 No Notes: Memoria 0-17 Same as l 22:46: Narcan [place] 00 Bisacodyl 2020-06 No Notes: Memori a 0-17 (Same As: l 22:46: Dulcolax, [place] 00 [place]-Lax) tizanidine 2020-06 No Notes: Memor ia 0-17 (Same As: l 22:46: Zanaflex) Ran 00 Ondansetron 2020-06 No Notes: Sherman timbo 0-17 (Same as: l 22:46: Zofran) Ran 00 MEDICATION WASTE Product Size: 4 mg Product Wasted: ___ mg Trazodone 2020-06 No Notes: Memori a 0-17 (Same As: l 22:46: Desyrel) [place] 00 Oxycodone 2020-06 No Notes: Memori a Hydrochlori 0-17 (Same as: l de 5 MG 22:46: Roxicodone Herm miguel Oral Tablet 00 ) Morphine 2020-06 No Notes: Memoria 0-17 (Same l 22:46: as:MORPhin [place] 00 e Sulfate) Naloxone 2020-06 No Notes: Memoria 0-17 Same as l 22:46: Narcan Ran Bisacodyl 2020-06 No Notes: Memori a 0-17 (Same As: l 22:46: Dulcolax, Ran 00 [place]-Lax) tizanidine 2020-06 No Notes: Memor ia 0-17 (Same As: l 22:46: Zanaflex) [place] 00 Ondansetron 2020-06 No Notes: Sherman timbo 0-17 (Same as: l 22:46: Zofran) [place] 00 MEDICATION WASTE Product Size: 4 mg Product Wasted: ___ mg Trazodone 2020-06 No Notes: Memori a 0-17 (Same As: l 22:46: Desyrel) Ran Oxycodone 2020-06 No Notes: Memori a Hydrochlori 0-17 (Same as: l de 5 MG 22:46: Roxicodone Herm miguel Oral Tablet 00 ) Morphine 2020-06 No Notes: Memoria 0-17 (Same l 22:46: as:MORPhin Ran 00 e Sulfate) Naloxone 2020-06 No Notes: Memoria 0-17 Same as l 22:46: Narcan [place] 00 Bisacodyl 2020-06 No Notes: Memori a 0-17 (Same As: l 22:46: Dulcolax, [place] 00 B[place]-Lax) tizanidine 2020-06 No Notes: Memor ia 0-17 (Same As: l 22:46: Zanaflex) [place] Ondansetron 2020-06 No Notes: Sherman timbo 0-17 (Same as: l 22:46: Zofran) [place] 00 MEDICATION WASTE Product Size: 4 mg Product Wasted: ___ mg Trazodone 2020-06 No Notes: Memori a 0-17 (Same As: l 22:46: Desyrel) [place] Oxycodone 2020-06 No Notes: Memori a Hydrochlori 0-17 (Same as: l de 5 MG 22:46: Roxicodone Herm miguel Oral Tablet 00 ) Morphine 2020-06 No Notes: Memoria 0-17 (Same l 22:46: as:MORPhin Ran 00 e Sulfate) Naloxone 2020-06 No Notes: Memoria 0-17 Same as l 22:46: Narcan [place] Bisacodyl 2020-06 No Notes: Memori a 0-17 (Same As: l 22:46: Dulcolax, [place] 00 B[place]-Lax) tizanidine 2020-06 No Notes: Memor ia 0-17 (Same As: l 22:46: Zanaflex) [place] 00 Ondansetron 2020-06 No Notes: Sherman timbo 0-17 (Same as: l 22:46: Zofran) Ran 00 MEDICATION WASTE Product Size: 4 mg Product Wasted: ___ mg Trazodone 2020-06 No Notes: Memori a 0-17 (Same As: l 22:46: Desyrel) [place] Oxycodone 2020-06 No Notes: Memori a Hydrochlori 0-17 (Same as: l de 5 MG 22:46: Roxicodone Herm miguel Oral Tablet 00 ) Morphine 2020-06 No Notes: Memoria 0-17 (Same l 22:46: as:MORPhin Ran 00 e Sulfate) Naloxone 2020-06 No Notes: Memoria 0-17 Same as l 22:46: Narcan [place] 00 Bisacodyl 2020-06 No Notes: Memori a 0-17 (Same As: l 22:46: Dulcolax, [place] 00 Bisco-Lax) tizanidine 2020-06 No Notes: Memor ia 0-17 (Same As: l 22:46: Zanaflex) [place] Ondansetron 2020-06 No Notes: Sherman timbo 0-17 (Same as: l 22:46: Zofran) [place] 00 MEDICATION WASTE Product Size: 4 mg Product Wasted: ___ mg Trazodone 2020-06 No Notes: Memori a 0-17 (Same As: l 22:46: Desyrel) Ran Oxycodone 2020-06 No Notes: Memori a Hydrochlori 0-17 (Same as: l de 5 MG 22:46: Roxicodone Herm miguel Oral Tablet 00 ) Morphine 2020-06 No Notes: Memoria 0-17 (Same l 22:46: as:MORPhin Ran 00 e Sulfate) Naloxone 2020-06 No Notes: Memoria 0-17 Same as l 22:46: Narcan [place] 00 Bisacodyl 2020-06 No Notes: Memori a 0-17 (Same As: l 22:46: Dulcolax, Ran 00 Bisco-Lax) tizanidine 2020-06 No Notes: Memor ia 0-17 (Same As: l 22:46: Zanaflex) [place] Ondansetron 2020-06 No Notes: Sherman timbo 0-17 (Same as: l 22:46: Zofran) [place] 00 MEDICATION WASTE Product Size: 4 mg Product Wasted: ___ mg Trazodone 2020-06 No Notes: Memori a 0-17 (Same As: l 22:46: Desyrel) [place] Oxycodone 2020-06 No Notes: Memori a Hydrochlori 0-17 (Same as: l de 5 MG 22:46: Roxicodone Herm miguel Oral Tablet 00 ) Morphine 2021-1 No Notes: Memoria 0-17 (Same l 22:46: as:MORPhin [place] 00 e Sulfate) Naloxone 2020-06 No Notes: Memoria 0-17 Same as l 22:46: Narcan Ran 00 Bisacodyl 2020-06 No Notes: Memori a 0-17 (Same As: l 22:46: Dulcolax, Ran 00 Bisco-Lax) tizanidine 2020-06 No Notes: Memor ia 0-17 (Same As: l 22:46: Zanaflex) [place] Ondansetron 2020-06 No Notes: Sherman timbo 0-17 (Same as: l 22:46: Zofran) Ran 00 MEDICATION WASTE Product Size: 4 mg Product Wasted: ___ mg Trazodone 2020-06 No Notes: Memori a 0-17 (Same As: l 22:46: Desyrel) Ran Oxycodone 2020-06 No Notes: Memori a Hydrochlori 0-17 (Same as: l de 5 MG 22:46: Roxicodone Herm miguel Oral Tablet 00 ) Morphine 2020-06 No Notes: Memoria 0-17 (Same l 22:46: as:MORPhin Ran 00 e Sulfate) Naloxone 2020-06 No Notes: Memoria 0-17 Same as l 22:46: Narcan [place] 00 Bisacodyl 2020-06 No Notes: Memori a 0-17 (Same As: l 22:46: Dulcolax, [place] 00 Bisco-Lax) tizanidine 2020-06 No Notes: Memor ia 0-17 (Same As: l 22:46: Zanaflex) [place] Ondansetron 2020-06 No Notes: Sherman timbo 0-17 (Same as: l 22:46: Zofran) [place] 00 MEDICATION WASTE Product Size: 4 mg Product Wasted: ___ mg Trazodone 2020-06 No Notes: Memori a 0-17 (Same As: l 22:46: Desyrel) [place] 00 Oxycodone 2020-06 No Notes: Memori a Hydrochlori 0-17 (Same as: l de 5 MG 22:46: Roxicodone Herm miguel Oral Tablet 00 ) Morphine 2020-06 No Notes: Memoria 0-17 (Same l 22:46: as:MORPhin [place] 00 e Sulfate) Naloxone 2020-06 No Notes: Memoria 0-17 Same as l 22:46: Narcan [place] Bisacodyl 2020-06 No Notes: Memori a 0-17 (Same As: l 22:46: Dulcolax, [place] 00 Bisco-Lax) tizanidine 2020-06 No Notes: Memor ia 0-17 (Same As: l 22:46: Zanaflex) [place] 00 Ondansetron 2020-06 No Notes: Sherman timbo 0-17 (Same as: l 22:46: Zofran) [place] MEDICATION WASTE Product Size: 4 mg Product Wasted: ___ mg Trazodone 2020-06 No Notes: Memori a 0-17 (Same As: l 22:46: Desyrel) [place] Oxycodone 2020-06 No Notes: Memori a Hydrochlori 0-17 (Same as: l de 5 MG 22:46: Roxicodone Herm miguel Oral Tablet ) Morphine 2020-06 No Notes: Memoria 0-17 (Same l 22:46: as:MORPhin [place] 00 e Sulfate) Naloxone 2020-06 No Notes: Memoria 0-17 Same as l 22:46: Narcan Ran Bisacodyl 2020-06 No Notes: Memori a 0-17 (Same As: l 22:46: Dulcolax, [place] 00 Bisco-Lax) tizanidine 2020-06 No Notes: Memor ia 0-17 (Same As: l 22:46: Zanaflex) [place] 00 Ondansetron 2020-06 No Notes: Sherman timbo 0-17 (Same as: l 22:46: Zofran) [place] MEDICATION WASTE Product Size: 4 mg Product Wasted: ___ mg Trazodone 2020-06 No Notes: Memori a 0-17 (Same As: l 22:46: Desyrel) [place] Oxycodone 2020-06 No Notes: Memori a Hydrochlori 0-17 (Same as: l de 5 MG 22:46: Roxicodone Herm miguel Oral Tablet ) Morphine 2020-06 No Notes: Memoria 0-17 (Same l 22:46: as:MORPhin e Sulfate) Naloxone 2020-06 No Notes: Memoria 0-17 Same as l 22:46: Narcan Bisacodyl 2020-06 No Notes: Memori a 0-17 (Same As: l 22:46: Dulcolax, Ran 00 Bisco-Lax) tizanidine 2020-06 No Notes: Memor ia 0-17 (Same As: l 22:46: Zanaflex) Ondansetron 2020-06 No Notes: Sherman timbo 0-17 (Same as: l 22:46: Zofran) MEDICATION WASTE Product Size: 4 mg Product Wasted: ___ mg Trazodone 2020-06 No Notes: Memori a 0-17 (Same As: l 22:46: Desyrel) Potassium 2020-06 No Notes: Memori a Chloride 0-17 (Same as: l 18:00: K-Dur 20) [place] "Do Not Crush" Give with food and full glass of water For patients unable to swallow tablet, dissolve in one half glass of water. Allow about 2 minutes for the tablets to disintegra te. Stir before giving to prepare slurry and administer . Please exclude Patient s with feeding tube less than 14 Chinese (Dobhoff, J-tube etc) and pediatric and patients. Potassium 2020-06 No Notes: Memori a Chloride 0-17 (Same as: l 18:00: K-Dur 20) [place] "Do Not Crush" Give with food and full glass of water For patients unable to swallow tablet, dissolve in one half glass of water. Allow about 2 minutes for the tablets to disintegra te. Stir before giving to prepare slurry and administer . Please exclude Patient s with feeding tube less than 14 Chinese (Dobhoff, J-tube etc) and pediatric and patients. Potassium 2020-06 No Notes: Memori a Chloride 0-17 (Same as: l 18:00: K-Dur 20) [place] "Do Not Crush" Give with food and full glass of water For patients unable to swallow tablet, dissolve in one half glass of water. Allow about 2 minutes for the tablets to disintegra te. Stir before giving to prepare slurry and administer . Please exclude Patient s with feeding tube less than 14 Chinese (Dobhoff, J-tube etc) and pediatric and patients. Potassium 2020-06 No Notes: Memori a Chloride 0-17 (Same as: l 18:00: K-Dur 20) [place] 00 "Do Not Crush" Give with food and full glass of water For patients unable to swallow tablet, dissolve in one half glass of water. Allow about 2 minutes for the tablets to disintegra te. Stir before giving to prepare slurry and administer . Please exclude Patient s with feeding tube less than 14 Chinese (Dobhoff, J-tube etc) and pediatric and patients. Potassium 2020-06 No Notes: Memori a Chloride 0-17 (Same as: l 18:00: K-Dur 20) [place] 00 "Do Not Crush" Give with food and full glass of water For patients unable to swallow tablet, dissolve in one half glass of water. Allow about 2 minutes for the tablets to disintegra te. Stir before giving to prepare slurry and administer . Please exclude Patient s with feeding tube less than 14 Chinese (Dobhoff, J-tube etc) and pediatric and patients. Potassium 2020-06 No Notes: Memori a Chloride 0-17 (Same as: l 18:00: K-Dur 20) [place] 00 "Do Not Crush" Give with food and full glass of water For patients unable to swallow tablet, dissolve in one half glass of water. Allow about 2 minutes for the tablets to disintegra te. Stir before giving to prepare slurry and administer . Please exclude Patient s with feeding tube less than 14 Chinese (Dobhoff, J-tube etc) and pediatric and patients. Potassium 2020-06 No Notes: Memori a Chloride 0-17 (Same as: l 18:00: K-Dur 20) [place] 00 "Do Not Crush" Give with food and full glass of water For patients unable to swallow tablet, dissolve in one half glass of water. Allow about 2 minutes for the tablets to disintegra te. Stir before giving to prepare slurry and administer . Please exclude Patient s with feeding tube less than 14 Chinese (Dobhoff, J-tube etc) and pediatric and patients. Potassium 2020-06 No Notes: Memori a Chloride 0-17 (Same as: l 18:00: K-Dur 20) [place] 00 "Do Not Crush" Give with food and full glass of water For patients unable to swallow tablet, dissolve in one half glass of water. Allow about 2 minutes for the tablets to disintegra te. Stir before giving to prepare slurry and administer . Please exclude Patient s with feeding tube less than 14 Chinese (Dobhoff, J-tube etc) and pediatric and patients. Potassium 2020-06 No Notes: Memori a Chloride 0-17 (Same as: l 18:00: K-Dur 20) [place] 00 "Do Not Crush" Give with food and full glass of water For patients unable to swallow tablet, dissolve in one half glass of water. Allow about 2 minutes for the tablets to disintegra te. Stir before giving to prepare slurry and administer . Please exclude Patient s with feeding tube less than 14 Chinese (Dobhoff, J-tube etc) and pediatric and patients. Potassium 2020-06 No Notes: Memori a Chloride 0-17 (Same as: l 18:00: K-Dur 20) [place] 00 "Do Not Crush" Give with food and full glass of water For patients unable to swallow tablet, dissolve in one half glass of water. Allow about 2 minutes for the tablets to disintegra te. Stir before giving to prepare slurry and administer . Please exclude Patient s with feeding tube less than 14 Chinese (Dobhoff, J-tube etc) and pediatric and patients. Potassium 2020-06 No Notes: Memori a Chloride 0-17 (Same as: l 18:00: K-Dur 20) [place] 00 "Do Not Crush" Give with food and full glass of water For patients unable to swallow tablet, dissolve in one half glass of water. Allow about 2 minutes for the tablets to disintegra te. Stir before giving to prepare slurry and administer . Please exclude Patient s with feeding tube less than 14 Chinese (Dobhoff, J-tube etc) and pediatric and patients. Potassium 2020-06 No Notes: Memori a Chloride 0-17 (Same as: l 18:00: K-Dur 20) [place] 00 "Do Not Crush" Give with food and full glass of water For patients unable to swallow tablet, dissolve in one half glass of water. Allow about 2 minutes for the tablets to disintegra te. Stir before giving to prepare slurry and administer . Please exclude Patient s with feeding tube less than 14 Chinese (Dobhoff, J-tube etc) and pediatric and patients. Potassium 2020-06 No Notes: Memori a Chloride 0-17 (Same as: l 18:00: K-Dur 20) [place] 00 "Do Not Crush" Give with food and full glass of water For patients unable to swallow tablet, dissolve in one half glass of water. Allow about 2 minutes for the tablets to disintegra te. Stir before giving to prepare slurry and administer . Please exclude Patient s with feeding tube less than 14 Chinese (Dobhoff, J-tube etc) and pediatric and patients. Potassium 2020-06 No Notes: Memori a Chloride 0-17 (Same as: l 18:00: K-Dur 20) [place] 00 "Do Not Crush" Give with food and full glass of water For patients unable to swallow tablet, dissolve in one half glass of water. Allow about 2 minutes for the tablets to disintegra te. Stir before giving to prepare slurry and administer . Please exclude Patient s with feeding tube less than 14 Chinese (Dobhoff, J-tube etc) and pediatric and patients. Potassium 2020-06 No Notes: Memori a Chloride 0-17 (Same as: l 18:00: K-Dur 20) [place] 00 "Do Not Crush" Give with food and full glass of water For patients unable to swallow tablet, dissolve in one half glass of water. Allow about 2 minutes for the tablets to disintegra te. Stir before giving to prepare slurry and administer . Please exclude Patient s with feeding tube less than 14 Chinese (Dobhoff, J-tube etc) and pediatric and patients. Potassium 2020-06 No Notes: Memori a Chloride 0-17 (Same as: l 18:00: K-Dur 20) [place] 00 "Do Not Crush" Give with food and full glass of water For patients unable to swallow tablet, dissolve in one half glass of water. Allow about 2 minutes for the tablets to disintegra te. Stir before giving to prepare slurry and administer . Please exclude Patient s with feeding tube less than 14 Chinese (Dobhoff, J-tube etc) and pediatric and patients. Potassium 2020-06 No Notes: Memori a Chloride 0-17 (Same as: l 18:00: K-Dur 20) [place] 00 "Do Not Crush" Give with food and full glass of water For patients unable to swallow tablet, dissolve in one half glass of water. Allow about 2 minutes for the tablets to disintegra te. Stir before giving to prepare slurry and administer . Please exclude Patient s with feeding tube less than 14 Chinese (Dobhoff, J-tube etc) and pediatric and patients. Potassium 2020-06 No Notes: Memori a Chloride 0-17 (Same as: l 18:00: K-Dur 20) [place] 00 "Do Not Crush" Give with food and full glass of water For patients unable to swallow tablet, dissolve in one half glass of water. Allow about 2 minutes for the tablets to disintegra te. Stir before giving to prepare slurry and administer . Please exclude Patient s with feeding tube less than 14 Chinese (Dobhoff, J-tube etc) and pediatric and patients. Potassium 2020-06 No Notes: Memori a Chloride 0-17 (Same as: l 18:00: K-Dur 20) [place] 00 "Do Not Crush" Give with food and full glass of water For patients unable to swallow tablet, dissolve in one half glass of water. Allow about 2 minutes for the tablets to disintegra te. Stir before giving to prepare slurry and administer . Please exclude Patient s with feeding tube less than 14 Chinese (Dobhoff, J-tube etc) and pediatric and patients. Potassium 2020-06 No Notes: Memori a Chloride 0-17 (Same as: l 18:00: K-Dur 20) [place] 00 "Do Not Crush" Give with food and full glass of water For patients unable to swallow tablet, dissolve in one half glass of water. Allow about 2 minutes for the tablets to disintegra te. Stir before giving to prepare slurry and administer . Please exclude Patient s with feeding tube less than 14 Chinese (Dobhoff, J-tube etc) and pediatric and patients. Potassium 2020-06 No Notes: Memori a Chloride 0-17 (Same as: l 18:00: K-Dur 20) [place] 00 "Do Not Crush" Give with food and full glass of water For patients unable to swallow tablet, dissolve in one half glass of water. Allow about 2 minutes for the tablets to disintegra te. Stir before giving to prepare slurry and administer . Please exclude Patient s with feeding tube less than 14 Chinese (Dobhoff, J-tube etc) and pediatric and patients. Potassium 2020-06 No Notes: Memori a Chloride 0-17 (Same as: l 18:00: K-Dur 20) [place] 00 "Do Not Crush" Give with food and full glass of water For patients unable to swallow tablet, dissolve in one half glass of water. Allow about 2 minutes for the tablets to disintegra te. Stir before giving to prepare slurry and administer . Please exclude Patient s with feeding tube less than 14 Chinese (Dobhoff, J-tube etc) and pediatric and patients. Potassium 2020-06 No Notes: Memori a Chloride 0-17 (Same as: l 18:00: K-Dur 20) [place] 00 "Do Not Crush" Give with food and full glass of water For patients unable to swallow tablet, dissolve in one half glass of water. Allow about 2 minutes for the tablets to disintegra te. Stir before giving to prepare slurry and administer . Please exclude Patient s with feeding tube less than 14 Chinese (Dobhoff, J-tube etc) and pediatric and patients. Potassium 2020-06 No Notes: Memori a Chloride 0-17 (Same as: l 18:00: K-Dur 20) [place] 00 "Do Not Crush" Give with food and full glass of water For patients unable to swallow tablet, dissolve in one half glass of water. Allow about 2 minutes for the tablets to disintegra te. Stir before giving to prepare slurry and administer . Please exclude Patient s with feeding tube less than 14 Chinese (Dobhoff, J-tube etc) and pediatric and patients. Potassium 2020-06 No Notes: Memori a Chloride 0-17 (Same as: l 18:00: K-Dur 20) [place] 00 "Do Not Crush" Give with food and full glass of water For patients unable to swallow tablet, dissolve in one half glass of water. Allow about 2 minutes for the tablets to disintegra te. Stir before giving to prepare slurry and administer . Please exclude Patient s with feeding tube less than 14 Chinese (Dobhoff, J-tube etc) and pediatric and patients. Potassium 2020-06 No Notes: Memori a Chloride 0-17 (Same as: l 18:00: K-Dur 20) [place] 00 "Do Not Crush" Give with food and full glass of water For patients unable to swallow tablet, dissolve in one half glass of water. Allow about 2 minutes for the tablets to disintegra te. Stir before giving to prepare slurry and administer . Please exclude Patient s with feeding tube less than 14 Chinese (Dobhoff, J-tube etc) and pediatric and patients. Potassium 2020-06 No Notes: Memori a Chloride 0-17 (Same as: l 18:00: K-Dur 20) [place] 00 "Do Not Crush" Give with food and full glass of water For patients unable to swallow tablet, dissolve in one half glass of water. Allow about 2 minutes for the tablets to disintegra te. Stir before giving to prepare slurry and administer . Please exclude Patient s with feeding tube less than 14 Chinese (Dobhoff, J-tube etc) and pediatric and patients. Potassium 2020-06 No Notes: Memori a Chloride 0-17 (Same as: l 18:00: K-Dur 20) [place] 00 "Do Not Crush" Give with food and full glass of water For patients unable to swallow tablet, dissolve in one half glass of water. Allow about 2 minutes for the tablets to disintegra te. Stir before giving to prepare slurry and administer . Please exclude Patient s with feeding tube less than 14 Chinese (Dobhoff, J-tube etc) and pediatric and patients. Potassium 2020-06 No Notes: Memori a Chloride 0-17 (Same as: l 18:00: K-Dur 20) [place] 00 "Do Not Crush" Give with food and full glass of water For patients unable to swallow tablet, dissolve in one half glass of water. Allow about 2 minutes for the tablets to disintegra te. Stir before giving to prepare slurry and administer . Please exclude Patient s with feeding tube less than 14 Chinese (Dobhoff, J-tube etc) and pediatric and patients. Potassium 2020-06 No Notes: Memori a Chloride 0-17 (Same as: l 18:00: K-Dur 20) [place] 00 "Do Not Crush" Give with food and full glass of water For patients unable to swallow tablet, dissolve in one half glass of water. Allow about 2 minutes for the tablets to disintegra te. Stir before giving to prepare slurry and administer . Please exclude Patient s with feeding tube less than 14 Chinese (Dobhoff, J-tube etc) and pediatric and patients. Potassium 2020-06 No Notes: Memori a Chloride 0-17 (Same as: l 18:00: K-Dur 20) [place] 00 "Do Not Crush" Give with food and full glass of water For patients unable to swallow tablet, dissolve in one half glass of water. Allow about 2 minutes for the tablets to disintegra te. Stir before giving to prepare slurry and administer . Please exclude Patient s with feeding tube less than 14 Chinese (Dobhoff, J-tube etc) and pediatric and patients. Potassium 2020-06 No Notes: Memori a Chloride 0-17 (Same as: l 18:00: K-Dur 20) [place] 00 "Do Not Crush" Give with food and full glass of water For patients unable to swallow tablet, dissolve in one half glass of water. Allow about 2 minutes for the tablets to disintegra te. Stir before giving to prepare slurry and administer . Please exclude Patient s with feeding tube less than 14 Chinese (Dobhoff, J-tube etc) and pediatric and patients. Potassium 2020-06 No Notes: Memori a Chloride 0-17 (Same as: l 18:00: K-Dur 20) [place] 00 "Do Not Crush" Give with food and full glass of water For patients unable to swallow tablet, dissolve in one half glass of water. Allow about 2 minutes for the tablets to disintegra te. Stir before giving to prepare slurry and administer . Please exclude Patient s with feeding tube less than 14 Chinese (Dobhoff, J-tube etc) and pediatric and patients. Potassium 2020-06 No Notes: Memori a Chloride 0-17 (Same as: l 18:00: K-Dur 20) [place] 00 "Do Not Crush" Give with food and full glass of water For patients unable to swallow tablet, dissolve in one half glass of water. Allow about 2 minutes for the tablets to disintegra te. Stir before giving to prepare slurry and administer . Please exclude Patient s with feeding tube less than 14 Chinese (Dobhoff, J-tube etc) and pediatric and patients. Potassium 2020-06 No Notes: Memori a Chloride 0-17 (Same as: l 18:00: K-Dur 20) [place] 00 "Do Not Crush" Give with food and full glass of water For patients unable to swallow tablet, dissolve in one half glass of water. Allow about 2 minutes for the tablets to disintegra te. Stir before giving to prepare slurry and administer . Please exclude Patient s with feeding tube less than 14 Chinese (Dobhoff, J-tube etc) and pediatric and patients. Potassium 2020-06 No Notes: Memori a Chloride 0-17 (Same as: l 18:00: K-Dur 20) [place] 00 "Do Not Crush" Give with food and full glass of water For patients unable to swallow tablet, dissolve in one half glass of water. Allow about 2 minutes for the tablets to disintegra te. Stir before giving to prepare slurry and administer . Please exclude Patient s with feeding tube less than 14 Chinese (Dobhoff, J-tube etc) and pediatric and patients. Potassium 2020-06 No Notes: Memori a Chloride 0-17 (Same as: l 18:00: K-Dur 20) [place] 00 "Do Not Crush" Give with food and full glass of water For patients unable to swallow tablet, dissolve in one half glass of water. Allow about 2 minutes for the tablets to disintegra te. Stir before giving to prepare slurry and administer . Please exclude Patient s with feeding tube less than 14 Chinese (Dobhoff, J-tube etc) and pediatric and patients. Potassium 2020-06 No Notes: Memori a Chloride 0-17 (Same as: l 18:00: K-Dur 20) [place] 00 "Do Not Crush" Give with food and full glass of water For patients unable to swallow tablet, dissolve in one half glass of water. Allow about 2 minutes for the tablets to disintegra te. Stir before giving to prepare slurry and administer . Please exclude Patient s with feeding tube less than 14 Chinese (Dobhoff, J-tube etc) and pediatric and patients. Potassium 2020-06 No Notes: Memori a Chloride 0-17 (Same as: l 18:00: K-Dur 20) [place] 00 "Do Not Crush" Give with food and full glass of water For patients unable to swallow tablet, dissolve in one half glass of water. Allow about 2 minutes for the tablets to disintegra te. Stir before giving to prepare slurry and administer . Please exclude Patient s with feeding tube less than 14 Chinese (Dobhoff, J-tube etc) and pediatric and patients. Potassium 2020-06 No Notes: Memori a Chloride 0-17 (Same as: l 18:00: K-Dur 20) [place] 00 "Do Not Crush" Give with food and full glass of water For patients unable to swallow tablet, dissolve in one half glass of water. Allow about 2 minutes for the tablets to disintegra te. Stir before giving to prepare slurry and administer . Please exclude Patient s with feeding tube less than 14 Chinese (Dobhoff, J-tube etc) and pediatric and patients. Potassium 2020-06 No Notes: Memori a Chloride 0-17 (Same as: l 14:19: K-Dur 20) [place] 00 "Do Not Crush" Give with food and full glass of water For patients unable to swallow tablet, dissolve in one half glass of water. Allow about 2 minutes for the tablets to disintegra te. Stir before giving to prepare slurry and administer . Please exclude Patient s with feeding tube less than 14 Chinese (Dobhoff, J-tube etc) and pediatric and patients. Potassium 2020-06 No Notes: Memori a Chloride 0-17 (Same as: l 14:: K-Dur 20) [place] 00 "Do Not Crush" Give with food and full glass of water For patients unable to swallow tablet, dissolve in one half glass of water. Allow about 2 minutes for the tablets to disintegra te. Stir before giving to prepare slurry and administer . Please exclude Patient s with feeding tube less than 14 Chinese (Dobhoff, J-tube etc) and pediatric and patients. Potassium 2020-06 No Notes: Memori a Chloride 0-17 (Same as: l 14:: K-Dur 20) [place] 00 "Do Not Crush" Give with food and full glass of water For patients unable to swallow tablet, dissolve in one half glass of water. Allow about 2 minutes for the tablets to disintegra te. Stir before giving to prepare slurry and administer . Please exclude Patient s with feeding tube less than 14 Chinese (Dobhoff, J-tube etc) and pediatric and patients. Potassium 2020-06 No Notes: Memori a Chloride 0-17 (Same as: l 14:19: K-Dur 20) [place] 00 "Do Not Crush" Give with food and full glass of water For patients unable to swallow tablet, dissolve in one half glass of water. Allow about 2 minutes for the tablets to disintegra te. Stir before giving to prepare slurry and administer . Please exclude Patient s with feeding tube less than 14 Chinese (Dobhoff, J-tube etc) and pediatric and patients. Potassium 2020-06 No Notes: Memori a Chloride 0-17 (Same as: l 14:19: K-Dur 20) [place] 00 "Do Not Crush" Give with food and full glass of water For patients unable to swallow tablet, dissolve in one half glass of water. Allow about 2 minutes for the tablets to disintegra te. Stir before giving to prepare slurry and administer . Please exclude Patient s with feeding tube less than 14 Chinese (Dobhoff, J-tube etc) and pediatric and patients. Potassium 2020-06 No Notes: Memori a Chloride 0-17 (Same as: l 14:19: K-Dur 20) [place] "Do Not Crush" Give with food and full glass of water For patients unable to swallow tablet, dissolve in one half glass of water. Allow about 2 minutes for the tablets to disintegra te. Stir before giving to prepare slurry and administer . Please exclude Patient s with feeding tube less than 14 Chinese (Dobhoff, J-tube etc) and pediatric and patients. Potassium 2020-06 No Notes: Memori a Chloride 0-17 (Same as: l 14:19: K-Dur 20) [place] 00 "Do Not Crush" Give with food and full glass of water For patients unable to swallow tablet, dissolve in one half glass of water. Allow about 2 minutes for the tablets to disintegra te. Stir before giving to prepare slurry and administer . Please exclude Patient s with feeding tube less than 14 Chinese (Dobhoff, J-tube etc) and pediatric and patients. Potassium 2020-06 No Notes: Memori a Chloride 0-17 (Same as: l 14:19: K-Dur 20) [place] 00 "Do Not Crush" Give with food and full glass of water For patients unable to swallow tablet, dissolve in one half glass of water. Allow about 2 minutes for the tablets to disintegra te. Stir before giving to prepare slurry and administer . Please exclude Patient s with feeding tube less than 14 Chinese (Dobhoff, J-tube etc) and pediatric and patients. Potassium 2020-06 No Notes: Memori a Chloride 0-17 (Same as: l 14:19: K-Dur 20) [place] "Do Not Crush" Give with food and full glass of water For patients unable to swallow tablet, dissolve in one half glass of water. Allow about 2 minutes for the tablets to disintegra te. Stir before giving to prepare slurry and administer . Please exclude Patient s with feeding tube less than 14 Chinese (Dobhoff, J-tube etc) and pediatric and patients. Potassium 2020-06 No Notes: Memori a Chloride 0-17 (Same as: l 14:19: K-Dur 20) [place] "Do Not Crush" Give with food and full glass of water For patients unable to swallow tablet, dissolve in one half glass of water. Allow about 2 minutes for the tablets to disintegra te. Stir before giving to prepare slurry and administer . Please exclude Patient s with feeding tube less than 14 Chinese (Dobhoff, J-tube etc) and pediatric and patients. Potassium 2020-06 No Notes: Memori a Chloride 0-17 (Same as: l 14:19: K-Dur 20) [place] 00 "Do Not Crush" Give with food and full glass of water For patients unable to swallow tablet, dissolve in one half glass of water. Allow about 2 minutes for the tablets to disintegra te. Stir before giving to prepare slurry and administer . Please exclude Patient s with feeding tube less than 14 Chinese (Dobhoff, J-tube etc) and pediatric and patients. Potassium 2020-06 No Notes: Memori a Chloride 0-17 (Same as: l 14:19: K-Dur 20) [place] 00 "Do Not Crush" Give with food and full glass of water For patients unable to swallow tablet, dissolve in one half glass of water. Allow about 2 minutes for the tablets to disintegra te. Stir before giving to prepare slurry and administer . Please exclude Patient s with feeding tube less than 14 Chinese (Dobhoff, J-tube etc) and pediatric and patients. Potassium 2020-06 No Notes: Mem[facility] a Chloride 0-17 (Same as: l 14:19: K-Dur 20) [place] 00 "Do Not Crush" Give with food and full glass of water For patients unable to swallow tablet, dissolve in one half glass of water. Allow about 2 minutes for the tablets to disintegra te. Stir before giving to prepare slurry and administer . Please exclude Patient s with feeding tube less than 14 Chinese (Dobhoff, J-tube etc) and pediatric and patients. Potassium 2020-06 No Notes: [facility] a Chloride 0-17 (Same as: l 14:19: K-Dur 20) [place] 00 "Do Not Crush" Give with food and full glass of water For patients unable to swallow tablet, dissolve in one half glass of water. Allow about 2 minutes for the tablets to disintegra te. Stir before giving to prepare slurry and administer . Please exclude Patient s with feeding tube less than 14 Chinese (Dobhoff, J-tube etc) and pediatric and patients. Potassium 2020-06 No Notes: Mem[facility] a Chloride 0-17 (Same as: l 14:19: K-Dur 20) [place] 00 "Do Not Crush" Give with food and full glass of water For patients unable to swallow tablet, dissolve in one half glass of water. Allow about 2 minutes for the tablets to disintegra te. Stir before giving to prepare slurry and administer . Please exclude Patient s with feeding tube less than 14 Chinese (Dobhoff, J-tube etc) and pediatric and patients. Potassium 2020-06 No Notes: [facility] a Chloride 0-17 (Same as: l 14:: K-Dur 20) [place] 00 "Do Not Crush" Give with food and full glass of water For patients unable to swallow tablet, dissolve in one half glass of water. Allow about 2 minutes for the tablets to disintegra te. Stir before giving to prepare slurry and administer . Please exclude Patient s with feeding tube less than 14 Chinese (Dobhoff, J-tube etc) and pediatric and patients. Potassium 2020-06 No Notes: [facility] a Chloride 0-17 (Same as: l 14:19: K-Dur 20) [place] 00 "Do Not Crush" Give with food and full glass of water For patients unable to swallow tablet, dissolve in one half glass of water. Allow about 2 minutes for the tablets to disintegra te. Stir before giving to prepare slurry and administer . Please exclude Patient s with feeding tube less than 14 Chinese (Dobhoff, J-tube etc) and pediatric and patients. Potassium 2020-06 No Notes: [facility] a Chloride 0-17 (Same as: l 14:19: K-Dur 20) [place] 00 "Do Not Crush" Give with food and full glass of water For patients unable to swallow tablet, dissolve in one half glass of water. Allow about 2 minutes for the tablets to disintegra te. Stir before giving to prepare slurry and administer . Please exclude Patient s with feeding tube less than 14 Chinese (Dobhoff, J-tube etc) and pediatric and patients. Potassium 2020-06 No Notes: [facility] a Chloride 0-17 (Same as: l 14:19: K-Dur 20) [place] 00 "Do Not Crush" Give with food and full glass of water For patients unable to swallow tablet, dissolve in one half glass of water. Allow about 2 minutes for the tablets to disintegra te. Stir before giving to prepare slurry and administer . Please exclude Patient s with feeding tube less than 14 Chinese (Dobhoff, J-tube etc) and pediatric and patients. Potassium 2020-06 No Notes: [facility] a Chloride 0-17 (Same as: l 14:19: K-Dur 20) [place] 00 "Do Not Crush" Give with food and full glass of water For patients unable to swallow tablet, dissolve in one half glass of water. Allow about 2 minutes for the tablets to disintegra te. Stir before giving to prepare slurry and administer . Please exclude Patient s with feeding tube less than 14 Chinese (Dobhoff, J-tube etc) and pediatric and patients. Potassium 2020-06 No Notes: [facility] a Chloride 0-17 (Same as: l 14:: K-Dur 20) [place] 00 "Do Not Crush" Give with food and full glass of water For patients unable to swallow tablet, dissolve in one half glass of water. Allow about 2 minutes for the tablets to disintegra te. Stir before giving to prepare slurry and administer . Please exclude Patient s with feeding tube less than 14 Chinese (Dobhoff, J-tube etc) and pediatric and patients. Potassium 2020-06 No Notes: [facility] a Chloride 0-17 (Same as: l 14:19: K-Dur 20) [place] 00 "Do Not Crush" Give with food and full glass of water For patients unable to swallow tablet, dissolve in one half glass of water. Allow about 2 minutes for the tablets to disintegra te. Stir before giving to prepare slurry and administer . Please exclude Patient s with feeding tube less than 14 Chinese (Dobhoff, J-tube etc) and pediatric and patients. Potassium 2020-06 No Notes: [facility] a Chloride 0-17 (Same as: l 14:19: K-Dur 20) [place] 00 "Do Not Crush" Give with food and full glass of water For patients unable to swallow tablet, dissolve in one half glass of water. Allow about 2 minutes for the tablets to disintegra te. Stir before giving to prepare slurry and administer . Please exclude Patient s with feeding tube less than 14 Chinese (Dobhoff, J-tube etc) and pediatric and patients. Potassium 2020-06 No Notes: [facility] a Chloride 0-17 (Same as: l 14:19: K-Dur 20) [place] 00 "Do Not Crush" Give with food and full glass of water For patients unable to swallow tablet, dissolve in one half glass of water. Allow about 2 minutes for the tablets to disintegra te. Stir before giving to prepare slurry and administer . Please exclude Patient s with feeding tube less than 14 Chinese (Dobhoff, J-tube etc) and pediatric and patients. Potassium 2020-06 No Notes: [facility] a Chloride 0-17 (Same as: l :: K-Dur 20) [place] 00 "Do Not Crush" Give with food and full glass of water For patients unable to swallow tablet, dissolve in one half glass of water. Allow about 2 minutes for the tablets to disintegra te. Stir before giving to prepare slurry and administer . Please exclude Patient s with feeding tube less than 14 Chinese (Dobhoff, J-tube etc) and pediatric and patients. Potassium 2020-06 No Notes: [facility] a Chloride 0-17 (Same as: l :: K-Dur 20) [place] 00 "Do Not Crush" Give with food and full glass of water For patients unable to swallow tablet, dissolve in one half glass of water. Allow about 2 minutes for the tablets to disintegra te. Stir before giving to prepare slurry and administer . Please exclude Patient s with feeding tube less than 14 Chinese (Dobhoff, J-tube etc) and pediatric and patients. Potassium 2020-06 No Notes: [facility] a Chloride 0-17 (Same as: l 14:19: K-Dur 20) [place] 00 "Do Not Crush" Give with food and full glass of water For patients unable to swallow tablet, dissolve in one half glass of water. Allow about 2 minutes for the tablets to disintegra te. Stir before giving to prepare slurry and administer . Please exclude Patient s with feeding tube less than 14 Chinese (Dobhoff, J-tube etc) and pediatric and patients. Potassium 2020-06 No Notes: [facility] a Chloride 0-17 (Same as: l 14:19: K-Dur 20) [place] 00 "Do Not Crush" Give with food and full glass of water For patients unable to swallow tablet, dissolve in one half glass of water. Allow about 2 minutes for the tablets to disintegra te. Stir before giving to prepare slurry and administer . Please exclude Patient s with feeding tube less than 14 Chinese (Dobhoff, J-tube etc) and pediatric and patients. Potassium 2020-06 No Notes: [facility] a Chloride 0-17 (Same as: l 14:19: K-Dur 20) [place] 00 "Do Not Crush" Give with food and full glass of water For patients unable to swallow tablet, dissolve in one half glass of water. Allow about 2 minutes for the tablets to disintegra te. Stir before giving to prepare slurry and administer . Please exclude Patient s with feeding tube less than 14 Chinese (Dobhoff, J-tube etc) and pediatric and patients. Potassium 2020-06 No Notes: [facility] a Chloride 0-17 (Same as: l 14:19: K-Dur 20) [place] 00 "Do Not Crush" Give with food and full glass of water For patients unable to swallow tablet, dissolve in one half glass of water. Allow about 2 minutes for the tablets to disintegra te. Stir before giving to prepare slurry and administer . Please exclude Patient s with feeding tube less than 14 Chinese (Dobhoff, J-tube etc) and pediatric and patients. Potassium 2020-06 No Notes: [facility] a Chloride 0-17 (Same as: l 14:19: K-Dur 20) [place] 00 "Do Not Crush" Give with food and full glass of water For patients unable to swallow tablet, dissolve in one half glass of water. Allow about 2 minutes for the tablets to disintegra te. Stir before giving to prepare slurry and administer . Please exclude Patient s with feeding tube less than 14 Chinese (Dobhoff, J-tube etc) and pediatric and patients. Potassium 2020-06 No Notes: [facility] a Chloride 0-17 (Same as: l 14:19: K-Dur 20) [place] 00 "Do Not Crush" Give with food and full glass of water For patients unable to swallow tablet, dissolve in one half glass of water. Allow about 2 minutes for the tablets to disintegra te. Stir before giving to prepare slurry and administer . Please exclude Patient s with feeding tube less than 14 Chinese (Dobhoff, J-tube etc) and pediatric and patients. Potassium 2020-06 No Notes: [facility] a Chloride 0-17 (Same as: l 14:19: K-Dur 20) [place] 00 "Do Not Crush" Give with food and full glass of water For patients unable to swallow tablet, dissolve in one half glass of water. Allow about 2 minutes for the tablets to disintegra te. Stir before giving to prepare slurry and administer . Please exclude Patient s with feeding tube less than 14 Chinese (Dobhoff, J-tube etc) and pediatric and patients. Potassium 2020-06 No Notes: [facility] a Chloride 0-17 (Same as: l 14:19: K-Dur 20) [place] 00 "Do Not Crush" Give with food and full glass of water For patients unable to swallow tablet, dissolve in one half glass of water. Allow about 2 minutes for the tablets to disintegra te. Stir before giving to prepare slurry and administer . Please exclude Patient s with feeding tube less than 14 Chinese (Dobhoff, J-tube etc) and pediatric and patients. Potassium 2020-06 No Notes: [facility] a Chloride 0-17 (Same as: l 14:19: K-Dur 20) [place] 00 "Do Not Crush" Give with food and full glass of water For patients unable to swallow tablet, dissolve in one half glass of water. Allow about 2 minutes for the tablets to disintegra te. Stir before giving to prepare slurry and administer . Please exclude Patient s with feeding tube less than 14 Chinese (Dobhoff, J-tube etc) and pediatric and patients. Potassium 2020-06 No Notes: [facility] a Chloride 0-17 (Same as: l 14:19: K-Dur 20) [place] 00 "Do Not Crush" Give with food and full glass of water For patients unable to swallow tablet, dissolve in one half glass of water. Allow about 2 minutes for the tablets to disintegra te. Stir before giving to prepare slurry and administer . Please exclude Patient s with feeding tube less than 14 Chinese (Dobhoff, J-tube etc) and pediatric and patients. Potassium 2020-06 No Notes: [facility] a Chloride 0-17 (Same as: l 14:19: K-Dur 20) [place] 00 "Do Not Crush" Give with food and full glass of water For patients unable to swallow tablet, dissolve in one half glass of water. Allow about 2 minutes for the tablets to disintegra te. Stir before giving to prepare slurry and administer . Please exclude Patient s with feeding tube less than 14 Chinese (Dobhoff, J-tube etc) and pediatric and patients. Potassium 2020-06 No Notes: [facility] a Chloride 0-17 (Same as: l 14:19: K-Dur 20) [place] 00 "Do Not Crush" Give with food and full glass of water For patients unable to swallow tablet, dissolve in one half glass of water. Allow about 2 minutes for the tablets to disintegra te. Stir before giving to prepare slurry and administer . Please exclude Patient s with feeding tube less than 14 Chinese (Dobhoff, J-tube etc) and pediatric and patients. Potassium 2020-06 No Notes: [facility] a Chloride 0-17 (Same as: l 14:19: K-Dur 20) [place] 00 "Do Not Crush" Give with food and full glass of water For patients unable to swallow tablet, dissolve in one half glass of water. Allow about 2 minutes for the tablets to disintegra te. Stir before giving to prepare slurry and administer . Please exclude Patient s with feeding tube less than 14 Chinese (Dobhoff, J-tube etc) and pediatric and patients. Potassium 2020-06 No Notes: [facility] a Chloride 0-17 (Same as: l 14:19: K-Dur 20) [place] 00 "Do Not Crush" Give with food and full glass of water For patients unable to swallow tablet, dissolve in one half glass of water. Allow about 2 minutes for the tablets to disintegra te. Stir before giving to prepare slurry and administer . Please exclude Patient s with feeding tube less than 14 Chinese (Dobhoff, J-tube etc) and pediatric and patients. Protonix 2020-06 No Notes: [facility] 0-17 Tablet l 14:00: should not [place] 00 be chewed or crushed. (Same as: Protonix) Protonix 2020-06 No Notes: [facility] 0-17 Tablet l 14:00: should not [place] 00 be chewed or crushed. (Same as: Protonix) Protonix 2020-06 No Notes: [facility] 0-17 Tablet l 14:00: should not [place] 00 be chewed or crushed. (Same as: Protonix) Protonix 2020-06 No Notes: [facility] 0-17 Tablet l 14:00: should not [place] 00 be chewed or crushed. (Same as: Protonix) Protonix 2020-06 No Notes: [facility] 0-17 Tablet l 14:00: should not [place] 00 be chewed or crushed. (Same as: Protonix) Protonix 2020-06 No Notes: [facility] 0-17 Tablet l 14:00: should not [place] 00 be chewed or crushed. (Same as: Protonix) Protonix 2020-06 No Notes: [facility] 0-17 Tablet l 14:00: should not [place] 00 be chewed or crushed. (Same as: Protonix) Protonix 2020-06 No Notes: [facility] 0-17 Tablet l 14:00: should not [place] 00 be chewed or crushed. (Same as: Protonix) Protonix 2020-06 No Notes: [facility] 0-17 Tablet l 14:00: should not [place] 00 be chewed or crushed. (Same as: Protonix) Protonix 2020-06 No Notes: [facility] 0-17 Tablet l 14:00: should not [place] 00 be chewed or crushed. (Same as: Protonix) Protonix 2020-06 No Notes: [facility] 0-17 Tablet l 14:00: should not [place] 00 be chewed or crushed. (Same as: Protonix) Protonix 2020-06 No Notes: [facility] 0-17 Tablet l 14:00: should not [place] 00 be chewed or crushed. (Same as: Protonix) Protonix 2020-06 No Notes: [facility] 0-17 Tablet l 14:00: should not [place] 00 be chewed or crushed. (Same as: Protonix) Protonix 2020-06 No Notes: [facility] 0-17 Tablet l 14:00: should not [place] 00 be chewed or crushed. (Same as: Protonix) Protonix 2020-06 No Notes: [facility] 0-17 Tablet l 14:00: should not [place] 00 be chewed or crushed. (Same as: Protonix) Protonix 2020-06 No Notes: [facility] 0-17 Tablet l 14:00: should not [place] 00 be chewed or crushed. (Same as: Protonix) Protonix 2020-06 No Notes: [facility] 0-17 Tablet l 14:00: should not [place] 00 be chewed or crushed. (Same as: Protonix) Protonix 2020-06 No Notes: [facility] 0-17 Tablet l 14:00: should not [place] 00 be chewed or crushed. (Same as: Protonix) Protonix 2020-06 No Notes: [facility] 0-17 Tablet l 14:00: should not [place] 00 be chewed or crushed. (Same as: Protonix) Protonix 2020-06 No Notes: [facility] 0-17 Tablet l 14:00: should not [place] 00 be chewed or crushed. (Same as: Protonix) Protonix 2020-06 No Notes: [facility] 0-17 Tablet l 14:00: should not [place] 00 be chewed or crushed. (Same as: Protonix) Protonix 2020-06 No Notes: [facility] 0-17 Tablet l 14:00: should not [place] 00 be chewed or crushed. (Same as: Protonix) Protonix 2020-06 No Notes: [facility] 0-17 Tablet l 14:00: should not [place] 00 be chewed or crushed. (Same as: Protonix) Protonix 2020-06 No Notes: [facility] 0-17 Tablet l 14:00: should not [place] 00 be chewed or crushed. (Same as: Protonix) Protonix 2020-06 No Notes: [facility] 0-17 Tablet l 14:00: should not [place] 00 be chewed or crushed. (Same as: Protonix) Protonix 2020-06 No Notes: [facility] 0-17 Tablet l 14:00: should not [place] 00 be chewed or crushed. (Same as: Protonix) Protonix 2020-06 No Notes: [facility] 0-17 Tablet l 14:00: should not [place] 00 be chewed or crushed. (Same as: Protonix) Protonix 2020-06 No Notes: [facility] 0-17 Tablet l 14:00: should not [place] 00 be chewed or crushed. (Same as: Protonix) Protonix 2020-06 No Notes: [facility] 0-17 Tablet l 14:00: should not [place] 00 be chewed or crushed. (Same as: Protonix) Protonix 2020-06 No Notes: [facility] 0-17 Tablet l 14:00: should not [place] 00 be chewed or crushed. (Same as: Protonix) Protonix 2020-06 No Notes: [facility] 0-17 Tablet l 14:00: should not [place] 00 be chewed or crushed. (Same as: Protonix) Protonix 2020-06 No Notes: [facility] 0-17 Tablet l 14:00: should not [place] 00 be chewed or crushed. (Same as: Protonix) Protonix 2020-06 No Notes: [facility] 0-17 Tablet l 14:00: should not [place] 00 be chewed or crushed. (Same as: Protonix) Protonix 2020-06 No Notes: [facility] 0-17 Tablet l 14:00: should not [place] 00 be chewed or crushed. (Same as: Protonix) Protonix 2020-06 No Notes: [facility] 0-17 Tablet l 14:00: should not [place] 00 be chewed or crushed. (Same as: Protonix) Protonix 2020-06 No Notes: [facility] 0-17 Tablet l 14:00: should not [place] 00 be chewed or crushed. (Same as: Protonix) Protonix 2020-06 No Notes: [facility] 0-17 Tablet l 14:00: should not [place] 00 be chewed or crushed. (Same as: Protonix) Protonix 2020-06 No Notes: [facility] 0-17 Tablet l 14:00: should not [place] 00 be chewed or crushed. (Same as: Protonix) Protonix 2020-06 No Notes: [facility] 0-17 Tablet l 14:00: should not [place] 00 be chewed or crushed. (Same as: Protonix) Protonix 2020-06 No Notes: [facility] 0-17 Tablet l 14:00: should not [place] 00 be chewed or crushed. (Same as: Protonix) Vitamin B 2020-06 Yes See [facility] 12 0-17 Instructio l 11:11: ns, [place] 00 1000mcg/mL injection; inject one mL under skin once daily, 0 Refill(s) Vitamin B 2020-06 Yes See [facility] 12 0-17 Instructio l 11:11: ns, [place] 00 1000mcg/mL injection; inject one mL under skin once daily, 0 Refill(s) Vitamin B 2020-06 Yes See [facility] 12 0-17 Instructio l 11:11: ns, [place] 00 1000mcg/mL injection; inject one mL under skin once daily, 0 Refill(s) Vitamin B 2020-06 Yes See [facility] 12 0-17 Instructio l 11:11: ns, [place] 00 1000mcg/mL injection; inject one mL under skin once daily, 0 Refill(s) Vitamin B 2020-06 Yes See [facility] 12 0-17 Instructio l 11:11: ns, [place] 00 1000mcg/mL injection; inject one mL under skin once daily, 0 Refill(s) Vitamin B 2020-06 Yes See [facility] 12 0-17 Instructio l 11:11: ns, [place] 00 1000mcg/mL injection; inject one mL under skin once daily, 0 Refill(s) Vitamin B 2020-06 Yes See [facility] 12 0-17 Instructio l 11:11: ns, [place] 00 1000mcg/mL injection; inject one mL under skin once daily, 0 Refill(s) Vitamin B 2020-06 Yes See [facility] 12 0-17 Instructio l 11:11: ns, [place] 00 1000mcg/mL injection; inject one mL under skin once daily, 0 Refill(s) Vitamin B 2020-06 Yes See [facility] 12 0-17 Instructio l 11:11: ns, [place] 00 1000mcg/mL injection; inject one mL under skin once daily, 0 Refill(s) Vitamin B 2020-06 Yes See [facility] 12 0-17 Instructio l 11:11: ns, [place] 1000mcg/mL injection; inject one mL under skin once daily, 0 Refill(s) Vitamin B 2020-06 Yes See [facility] 12 0-17 Instructio l 11:11: ns, [place] 00 1000mcg/mL injection; inject one mL under skin once daily, 0 Refill(s) Vitamin B 2020-06 Yes See [facility] 12 0-17 Instructio l 11:11: ns, [place] 1000mcg/mL injection; inject one mL under skin once daily, 0 Refill(s) Vitamin B 2020-06 Yes See [facility] 12 0-17 Instructio l 11:11: ns, [place] 00 1000mcg/mL injection; inject one mL under skin once daily, 0 Refill(s) Vitamin B 2020-06 Yes See [facility] 12 0-17 Instructio l 11:11: ns, [place] 1000mcg/mL injection; inject one mL under skin once daily, 0 Refill(s) Vitamin B 2020-06 Yes See [facility] 12 0-17 Instructio l 11:11: ns, [place] 00 1000mcg/mL injection; inject one mL under skin once daily, 0 Refill(s) Vitamin B 2020-06 Yes See [facility] 12 0-17 Instructio l 11:11: ns, [place] 00 1000mcg/mL injection; inject one mL under skin once daily, 0 Refill(s) Vitamin B 2020-06 Yes See [facility] 12 0-17 Instructio l 11:11: ns, [place] 1000mcg/mL injection; inject one mL under skin once daily, 0 Refill(s) Vitamin B 2020-06 Yes See [facility] 12 0-17 Instructio l 11:11: ns, [place] 00 1000mcg/mL injection; inject one mL under skin once daily, 0 Refill(s) Vitamin B 2020-06 Yes See [facility] 12 0-17 Instructio l 11:11: ns, [place] 00 1000mcg/mL injection; inject one mL under skin once daily, 0 Refill(s) Vitamin B 2020-06 Yes See [facility] 12 0-17 Instructio l 11:11: ns, [place] 00 1000mcg/mL injection; inject one mL under skin once daily, 0 Refill(s) Vitamin B 2020-06 Yes See [facility] 12 0-17 Instructio l 11:11: ns, [place] 00 1000mcg/mL injection; inject one mL under skin once daily, 0 Refill(s) Vitamin B 2020-06 Yes See [facility] 12 0-17 Instructio l 11:11: ns, [place] 00 1000mcg/mL injection; inject one mL under skin once daily, 0 Refill(s) Vitamin B 2020-06 Yes See [facility] 12 0-17 Instructio l 11:11: ns, [place] 00 1000mcg/mL injection; inject one mL under skin once daily, 0 Refill(s) Vitamin B 2020-06 Yes See [facility] 12 0-17 Instructio l 11:11: ns, [place] 00 1000mcg/mL injection; inject one mL under skin once daily, 0 Refill(s) Vitamin B 2020-06 Yes See [facility] 12 0-17 Instructio l 11:11: ns, [place] 00 1000mcg/mL injection; inject one mL under skin once daily, 0 Refill(s) Vitamin B 2020-06 Yes See [facility] 12 0-17 Instructio l 11:11: ns, [place] 00 1000mcg/mL injection; inject one mL under skin once daily, 0 Refill(s) Vitamin B 2020-06 Yes See [facility] 12 0-17 Instructio l 11:11: ns, [place] 00 1000mcg/mL injection; inject one mL under skin once daily, 0 Refill(s) Vitamin B 2020-06 Yes See [facility] 12 0-17 Instructio l 11:11: ns, [place] 00 1000mcg/mL injection; inject one mL under skin once daily, 0 Refill(s) Vitamin B 2020-06 Yes See [facility] 12 0-17 Instructio l 11:11: ns, [place] 00 1000mcg/mL injection; inject one mL under skin once daily, 0 Refill(s) Vitamin B 2020-06 Yes See [facility] 12 0-17 Instructio l 11:11: ns, [place] 00 1000mcg/mL injection; inject one mL under skin once daily, 0 Refill(s) Vitamin B 2020-06 Yes See [facility] 12 0-17 Instructio l 11:11: ns, [place] 1000mcg/mL injection; inject one mL under skin once daily, 0 Refill(s) Vitamin B 2020-06 Yes See [facility] 12 0-17 Instructio l 11:11: ns, [place] 00 1000mcg/mL injection; inject one mL under skin once daily, 0 Refill(s) Vitamin B 2020-06 Yes See [facility] 12 0-17 Instructio l 11:11: ns, [place] 00 1000mcg/mL injection; inject one mL under skin once daily, 0 Refill(s) Vitamin B 2020-06 Yes See [facility] 12 0-17 Instructio l 11:11: ns, [place] 00 1000mcg/mL injection; inject one mL under skin once daily, 0 Refill(s) Vitamin B 2020-06 Yes See [facility] 12 0-17 Instructio l 11:11: ns, [place] 00 1000mcg/mL injection; inject one mL under skin once daily, 0 Refill(s) Vitamin B 2020-06 Yes See [facility] 12 0-17 Instructio l 11:11: ns, [place] 00 1000mcg/mL injection; inject one mL under skin once daily, 0 Refill(s) Vitamin B 2020-06 Yes See [facility] 12 0-17 Instructio l 11:11: ns, [place] 00 1000mcg/mL injection; inject one mL under skin once daily, 0 Refill(s) Vitamin B 2020-06 Yes See [facility] 12 0-17 Instructio l 11:11: ns, [place] 00 1000mcg/mL injection; inject one mL under skin once daily, 0 Refill(s) Vitamin B 2020-06 Yes See [facility] 12 0-17 Instructio l 11:11: ns, [place] 00 1000mcg/mL injection; inject one mL under skin once daily, 0 Refill(s) Vitamin B 2020-06 Yes See [facility] 12 0-17 Instructio l 11:11: ns, [place] 00 1000mcg/mL injection; inject one mL under skin once daily, 0 Refill(s) NS 1,000 mL 2020-06 No 1,000 mL, M emoria 0-17 Rate: 125 l 07:59: ml/hr, [place] 00 Infuse over: 8 hr, Route: IV, Dosing Weight 86.364 kg, Total Volume: 1,000, Start date: 04/09/21 2:59:00 CDT, Duration: 30 day, Stop date: 05/09/21 2:58:00 ROLLER HAND, BSA: 2.03 m2, 0 Morphine 2021-1 No Notes: [facility] 0-17 (Same l 07:59: as:MORPhin [place] 00 e Sulfate) Acetaminoph 2020-06 No Notes: [place] timbo en 325 MG / 0-17 (Same as: l Hydrocodone 07:59: Ruffin Hermila nn Bitartrate 00 325/5) Do 5 MG Oral not exceed Tablet 4gm/day of [Ruffin acetaminop 5/325] hen. NS 1,000 mL 2020-06 No 1,000 mL, M emoria 0-17 Rate: 125 l 07:59: ml/hr, Ran 00 Infuse over: 8 hr, Route: IV, Dosing Weight 86.364 kg, Total Volume: 1,000, Start date: 04/09/21 2:59:00 CDT, Duration: 30 day, Stop date: 05/09/21 2:58:00 ROLLER HAND, BSA: 2.03 m2, 0 Morphine 2020-06 No Notes: Memoria 0-17 (Same l 07:59: as:MORPhin Ran 00 e Sulfate) Acetaminoph 2020-06 No Notes: [place] tim[place] en 325 MG / 0-17 (Same as: l Hydrocodone 07:59: Ruffin Hermila nn Bitartrate 00 325/5) Do 5 MG Oral not exceed Tablet 4gm/day of [Ruffin acetaminop 5/325] hen. NS 1,000 mL 2020-06 No 1,000 mL, M emoria 0-17 Rate: 125 l 07:59: ml/hr, Ran 00 Infuse over: 8 hr, Route: IV, Dosing Weight 86.364 kg, Total Volume: 1,000, Start date: 04/09/21 2:59:00 CDT, Duration: 30 day, Stop date: 05/09/21 2:58:00 ROLLER HAND, BSA: 2.03 m2, 0 Morphine 2020-06 No Notes: Memoria 0-17 (Same l 07:59: as:[facility]ORPhin [place] 00 e Sulfate) Acetaminoph 2020-06 No Notes: [place] timbo en 325 MG / 0-17 (Same as: l Hydrocodone 07:59: Ruffin Hermila nn Bitartrate 00 325/5) Do 5 MG Oral not exceed Tablet 4gm/day of [Ruffin acetaminop 5/325] hen. NS 1,000 mL 2020-06 No 1,000 mL, M emoria 0-17 Rate: 125 l 07:59: ml/hr, [place] 00 Infuse over: 8 hr, Route: IV, Dosing Weight 86.364 kg, Total Volume: 1,000, Start date: 04/09/21 2:59:00 CDT, Duration: 30 day, Stop date: 05/09/21 2:58:00 ROLLER HAND, BSA: 2.03 m2, 0 Morphine 2020-06 No Notes: Memoria 0-17 (Same l 07:59: as:MORPhin Ran 00 e Sulfate) Acetaminoph 2020-06 No Notes: [place] tim[place] en 325 MG / 0-17 (Same as: l Hydrocodone 07:59: Ruffin Hermila nn Bitartrate 00 325/5) Do 5 MG Oral not exceed Tablet 4gm/day of [Ruffin acetaminop 5/325] hen. NS 1,000 mL 2020-06 No 1,000 mL, M emoria 0-17 Rate: 125 l 07:59: ml/hr, Ran 00 Infuse over: 8 hr, Route: IV, Dosing Weight 86.364 kg, Total Volume: 1,000, Start date: 04/09/21 2:59:00 CDT, Duration: 30 day, Stop date: 05/09/21 2:58:00 ROLLER HAND, BSA: 2.03 m2, 0 Morphine 2020-06 No Notes: Memoria 0-17 (Same l 07:59: as:[facility]Phin [place] 00 e Sulfate) Acetaminoph 2020-06 No Notes: [place] tim[place] en 325 MG / 0-17 (Same as: l Hydrocodone 07:59: Ruffin Hermila nn Bitartrate 00 325/5) Do 5 MG Oral not exceed Tablet 4gm/day of [Ruffin acetaminop 5/325] hen. NS 1,000 mL 2020-06 No 1,000 mL, M emoria 0-17 Rate: 125 l 07:59: ml/hr, [place] 00 Infuse over: 8 hr, Route: IV, Dosing Weight 86.364 kg, Total Volume: 1,000, Start date: 04/09/21 2:59:00 CDT, Duration: 30 day, Stop date: 05/09/21 2:58:00 ROLLER HAND, BSA: 2.03 m2, 0 Morphine 2020-06 No Notes: Memoria 0-17 (Same l 07:59: as:MORPhin Ran 00 e Sulfate) Acetaminoph 2020-06 No Notes: [place] tim[place] en 325 MG / 0-17 (Same as: l Hydrocodone 07:59: Ruffin Hermila nn Bitartrate 00 325/5) Do 5 MG Oral not exceed Tablet 4gm/day of [Ruffin acetaminop 5/325] hen. NS 1,000 mL 2020-06 No 1,000 mL, M emoria 0-17 Rate: 125 l 07:59: ml/hr, Ran 00 Infuse over: 8 hr, Route: IV, Dosing Weight 86.364 kg, Total Volume: 1,000, Start date: 04/09/21 2:59:00 CDT, Duration: 30 day, Stop date: 05/09/21 2:58:00 ROLLER HAND, BSA: 2.03 m2, 0 Morphine 2020-06 No Notes: Memoria 0-17 (Same l 07:59: as:MORPhin Ran 00 e Sulfate) Acetaminoph 2020-06 No Notes: [place] tim[place] en 325 MG / 0-17 (Same as: l Hydrocodone 07:59: Ruffin Hermila nn Bitartrate 00 325/5) Do 5 MG Oral not exceed Tablet 4gm/day of [Ruffin acetaminop 5/325] hen. NS 1,000 mL 2020-06 No 1,000 mL, M emoria 0-17 Rate: 125 l 07:59: ml/hr, Ran 00 Infuse over: 8 hr, Route: IV, Dosing Weight 86.364 kg, Total Volume: 1,000, Start date: 04/09/21 2:59:00 CDT, Duration: 30 day, Stop date: 05/09/21 2:58:00 ROLLER HAND, BSA: 2.03 m2, 0 Morphine 2020-06 No Notes: Memoria 0-17 (Same l 07:59: as:MORPhin Ran 00 e Sulfate) Acetaminoph 2020-06 No Notes: [place] tim[place] en 325 MG / 0-17 (Same as: l Hydrocodone 07:59: Ruffin Hermila nn Bitartrate 00 325/5) Do 5 MG Oral not exceed Tablet 4gm/day of [Ruffin acetaminop 5/325] hen. NS 1,000 mL 2020-06 No 1,000 mL, M emoria 0-17 Rate: 125 l 07:59: ml/hr, Ran 00 Infuse over: 8 hr, Route: IV, Dosing Weight 86.364 kg, Total Volume: 1,000, Start date: 04/09/21 2:59:00 CDT, Duration: 30 day, Stop date: 05/09/21 2:58:00 ROLLER HAND, BSA: 2.03 m2, 0 Morphine 2020-06 No Notes: Memoria 0-17 (Same l 07:59: as:MORPhin Ran 00 e Sulfate) Acetaminoph 2020-06 No Notes: [place] tim[place] en 325 MG / 0-17 (Same as: l Hydrocodone 07:59: Ruffin Hermila nn Bitartrate 00 325/5) Do 5 MG Oral not exceed Tablet 4gm/day of [Ruffin acetaminop 5/325] hen. NS 1,000 mL 2020-06 No 1,000 mL, M emoria 0-17 Rate: 125 l 07:59: ml/hr, [place] 00 Infuse over: 8 hr, Route: IV, Dosing Weight 86.364 kg, Total Volume: 1,000, Start date: 04/09/21 2:59:00 CDT, Duration: 30 day, Stop date: 05/09/21 2:58:00 ROLLER HAND, BSA: 2.03 m2, 0 Morphine 2020-06 No Notes: Memoria 0-17 (Same l 07:59: as:MORPhin Ran 00 e Sulfate) Acetaminoph 2020-06 No Notes: [place] tim[place] en 325 MG / 0-17 (Same as: l Hydrocodone 07:59: Ruffin Hermila nn Bitartrate 00 325/5) Do 5 MG Oral not exceed Tablet 4gm/day of [Ruffin acetaminop 5/325] hen. NS 1,000 mL 2020-06 No 1,000 mL, M emoria 0-17 Rate: 125 l 07:59: ml/hr, [place] 00 Infuse over: 8 hr, Route: IV, Dosing Weight 86.364 kg, Total Volume: 1,000, Start date: 04/09/21 2:59:00 CDT, Duration: 30 day, Stop date: 05/09/21 2:58:00 ROLLER HAND, BSA: 2.03 m2, 0 Morphine 2020-06 No Notes: Memoria 0-17 (Same l 07:59: as:MORPhin Ran 00 e Sulfate) Acetaminoph 2020-06 No Notes: [place] en 325 MG / 0-17 (Same as: l Hydrocodone 07:59: Ruffin Hermila nn Bitartrate 00 325/5) Do 5 MG Oral not exceed Tablet 4gm/day of [Ruffin acetaminop 5/325] hen. NS 1,000 mL 2020-06 No 1,000 mL, M emoria 0-17 Rate: 125 l 07:59: ml/hr, Ran 00 Infuse over: 8 hr, Route: IV, Dosing Weight 86.364 kg, Total Volume: 1,000, Start date: 04/09/21 2:59:00 CDT, Duration: 30 day, Stop date: 05/09/21 2:58:00 ROLLER HAND, BSA: 2.03 m2, 0 Morphine 2020-06 No Notes: Memoria 0-17 (Same l 07:59: as:MORPhin [place] 00 e Sulfate) Acetaminoph 2020-06 No Notes: [place] tim[place] en 325 MG / 0-17 (Same as: l Hydrocodone 07:59: Ruffin Hermila nn Bitartrate 00 325/5) Do 5 MG Oral not exceed Tablet 4gm/day of [Ruffin acetaminop 5/325] hen. NS 1,000 mL 2020-06 No 1,000 mL, M emoria 0-17 Rate: 125 l 07:59: ml/hr, [place] 00 Infuse over: 8 hr, Route: IV, Dosing Weight 86.364 kg, Total Volume: 1,000, Start date: 04/09/21 2:59:00 CDT, Duration: 30 day, Stop date: 05/09/21 2:58:00 ROLLER HAND, BSA: 2.03 m2, 0 Morphine 2020-06 No Notes: Memoria 0-17 (Same l 07:59: as:[facility]ORPhin [place] 00 e Sulfate) Acetaminoph 2020-06 No Notes: [place] tim[place] en 325 MG / 0-17 (Same as: l Hydrocodone 07:59: Ruffin Hermila nn Bitartrate 00 325/5) Do 5 MG Oral not exceed Tablet 4gm/day of [Ruffin acetaminop 5/325] hen. NS 1,000 mL 2020-06 No 1,000 mL, M emoria 0-17 Rate: 125 l 07:59: ml/hr, [place] 00 Infuse over: 8 hr, Route: IV, Dosing Weight 86.364 kg, Total Volume: 1,000, Start date: 04/09/21 2:59:00 CDT, Duration: 30 day, Stop date: 05/09/21 2:58:00 ROLLER HAND, BSA: 2.03 m2, 0 Morphine 2020-06 No Notes: Memoria 0-17 (Same l 07:59: as:MORPhin Ran 00 e Sulfate) Acetaminoph 2020-06 No Notes: [place] tim[place] en 325 MG / 0-17 (Same as: l Hydrocodone 07:59: Ruffin Hermila nn Bitartrate 00 325/5) Do 5 MG Oral not exceed Tablet 4gm/day of [Ruffin acetaminop 5/325] hen. NS 1,000 mL 2020-06 No 1,000 mL, M emoria 0-17 Rate: 125 l 07:59: ml/hr, [place] 00 Infuse over: 8 hr, Route: IV, Dosing Weight 86.364 kg, Total Volume: 1,000, Start date: 04/09/21 2:59:00 CDT, Duration: 30 day, Stop date: 05/09/21 2:58:00 ROLLER HAND, BSA: 2.03 m2, 0 Morphine 2020-06 No Notes: Memoria 0-17 (Same l 07:59: as:MORPhin [place] 00 e Sulfate) Acetaminoph 2020-06 No Notes: [place] tim[place] en 325 MG / 0-17 (Same as: l Hydrocodone 07:59: Ruffin Hermila nn Bitartrate 00 325/5) Do 5 MG Oral not exceed Tablet 4gm/day of [Ruffin acetaminop 5/325] hen. NS 1,000 mL 2020-06 No 1,000 mL, M emoria 0-17 Rate: 125 l 07:59: ml/hr, [place] 00 Infuse over: 8 hr, Route: IV, Dosing Weight 86.364 kg, Total Volume: 1,000, Start date: 04/09/21 2:59:00 CDT, Duration: 30 day, Stop date: 05/09/21 2:58:00 ROLLER HAND, BSA: 2.03 m2, 0 Morphine 2020-06 No Notes: Memoria 0-17 (Same l 07:59: as:MORPhin Ran 00 e Sulfate) Acetaminoph 2020-06 No Notes: [place] tim[place] en 325 MG / 0-17 (Same as: l Hydrocodone 07:59: Ruffin Hermila nn Bitartrate 00 325/5) Do 5 MG Oral not exceed Tablet 4gm/day of [Ruffin acetaminop 5/325] hen. NS 1,000 mL 2020-06 No 1,000 mL, M emoria 0-17 Rate: 125 l 07:59: ml/hr, [place] 00 Infuse over: 8 hr, Route: IV, Dosing Weight 86.364 kg, Total Volume: 1,000, Start date: 04/09/21 2:59:00 CDT, Duration: 30 day, Stop date: 05/09/21 2:58:00 ROLLER HAND, BSA: 2.03 m2, 0 Morphine 2020-06 No Notes: Memoria 0-17 (Same l 07:59: as:MORPhin Ran 00 e Sulfate) Acetaminoph 2020-06 No Notes: [place] tim[place] en 325 MG / 0-17 (Same as: l Hydrocodone 07:59: Ruffin Hermila nn Bitartrate 00 325/5) Do 5 MG Oral not exceed Tablet 4gm/day of [Ruffin acetaminop 5/325] hen. NS 1,000 mL 2020-06 No 1,000 mL, M emoria 0-17 Rate: 125 l 07:59: ml/hr, [place] 00 Infuse over: 8 hr, Route: IV, Dosing Weight 86.364 kg, Total Volume: 1,000, Start date: 04/09/21 2:59:00 CDT, Duration: 30 day, Stop date: 05/09/21 2:58:00 ROLLER HAND, BSA: 2.03 m2, 0 Morphine 2020-06 No Notes: Memoria 0-17 (Same l 07:59: as:MORPhin Ran 00 e Sulfate) Acetaminoph 2020-06 No Notes: [place] tim[place] en 325 MG / 0-17 (Same as: l Hydrocodone 07:59: Ruffin Hermila nn Bitartrate 00 325/5) Do 5 MG Oral not exceed Tablet 4gm/day of [Ruffin acetaminop 5/325] hen. NS 1,000 mL 2020-06 No 1,000 mL, M emoria 0-17 Rate: 125 l 07:59: ml/hr, [place] 00 Infuse over: 8 hr, Route: IV, Dosing Weight 86.364 kg, Total Volume: 1,000, Start date: 04/09/21 2:59:00 CDT, Duration: 30 day, Stop date: 05/09/21 2:58:00 ROLLER HAND, BSA: 2.03 m2, 0 Morphine 2020-06 No Notes: Memoria 0-17 (Same l 07:59: as:MORPhin [place] 00 e Sulfate) Acetaminoph 2020-06 No Notes: [place] tim[place] en 325 MG / 0-17 (Same as: l Hydrocodone 07:59: Ruffin Hermila nn Bitartrate 00 325/5) Do 5 MG Oral not exceed Tablet 4gm/day of [Ruffin acetaminop 5/325] hen. NS 1,000 mL 2020-06 No 1,000 mL, M emoria 0-17 Rate: 125 l 07:59: ml/hr, [place] 00 Infuse over: 8 hr, Route: IV, Dosing Weight 86.364 kg, Total Volume: 1,000, Start date: 04/09/21 2:59:00 CDT, Duration: 30 day, Stop date: 05/09/21 2:58:00 ROLLER HAND, BSA: 2.03 m2, 0 Morphine 2020-06 No Notes: Memoria 0-17 (Same l 07:59: as:MORPhin Ran 00 e Sulfate) Acetaminoph 2020-06 No Notes: [place] tim[place] en 325 MG / 0-17 (Same as: l Hydrocodone 07:59: Ruffin Hermila nn Bitartrate 00 325/5) Do 5 MG Oral not exceed Tablet 4gm/day of [Ruffin acetaminop 5/325] hen. NS 1,000 mL 2020-06 No 1,000 mL, M emoria 0-17 Rate: 125 l 07:59: ml/hr, [place] 00 Infuse over: 8 hr, Route: IV, Dosing Weight 86.364 kg, Total Volume: 1,000, Start date: 04/09/21 2:59:00 CDT, Duration: 30 day, Stop date: 05/09/21 2:58:00 ROLLER HAND, BSA: 2.03 m2, 0 Morphine 2020-06 No Notes: Memoria 0-17 (Same l 07:59: as:MORPhin [place] 00 e Sulfate) Acetaminoph 2020-06 No Notes: [place] tim[place] en 325 MG / 0-17 (Same as: l Hydrocodone 07:59: Ruffin Hermila nn Bitartrate 00 325/5) Do 5 MG Oral not exceed Tablet 4gm/day of [Ruffin acetaminop 5/325] hen. NS 1,000 mL 2020-06 No 1,000 mL, M emoria 0-17 Rate: 125 l 07:59: ml/hr, [place] 00 Infuse over: 8 hr, Route: IV, Dosing Weight 86.364 kg, Total Volume: 1,000, Start date: 04/09/21 2:59:00 CDT, Duration: 30 day, Stop date: 05/09/21 2:58:00 ROLLER HAND, BSA: 2.03 m2, 0 Morphine 2020-06 No Notes: Memoria 0-17 (Same l 07:59: as:MORPhin [place] 00 e Sulfate) Acetaminoph 2020-06 No Notes: [place] tim[place] en 325 MG / 0-17 (Same as: l Hydrocodone 07:59: Ruffin Hermila nn Bitartrate 00 325/5) Do 5 MG Oral not exceed Tablet 4gm/day of [Ruffin acetaminop 5/325] hen. NS 1,000 mL 2020-06 No 1,000 mL, M emoria 0-17 Rate: 125 l 07:59: ml/hr, [place] 00 Infuse over: 8 hr, Route: IV, Dosing Weight 86.364 kg, Total Volume: 1,000, Start date: 04/09/21 2:59:00 CDT, Duration: 30 day, Stop date: 05/09/21 2:58:00 ROLLER HAND, BSA: 2.03 m2, 0 Morphine 2020-06 No Notes: Memoria 0-17 (Same l 07:59: as:MORPhin [place] 00 e Sulfate) Acetaminoph 2020-06 No Notes: [place] tim[place] en 325 MG / 0-17 (Same as: l Hydrocodone 07:59: Ruffin Hermila nn Bitartrate 00 325/5) Do 5 MG Oral not exceed Tablet 4gm/day of [Ruffin acetaminop 5/325] hen. NS 1,000 mL 2020-06 No 1,000 mL, [place] em[place] 0-17 Rate: 125 l 07:59: ml/hr, [place] 00 Infuse over: 8 hr, Route: IV, Dosing Weight 86.364 kg, Total Volume: 1,000, Start date: 04/09/21 2:59:00 CDT, Duration: 30 day, Stop date: 05/09/21 2:58:00 ROLLER HAND, BSA: 2.03 m2, 0 Morphine 2020-06 No Notes: [facility]oria 0-17 (Same l 07:59: as:MORPhin [place] 00 e Sulfate) Acetaminoph 2020-06 No Notes: [place] tim[place] en 325 MG / 0-17 (Same as: l Hydrocodone 07:59: Ruffin Hermila nn Bitartrate 00 325/5) Do 5 MG Oral not exceed Tablet 4gm/day of [Ruffin acetaminop 5/325] hen. NS 1,000 mL 2020-06 No 1,000 mL, M emoria 0-17 Rate: 125 l 07:59: ml/hr, [place] 00 Infuse over: 8 hr, Route: IV, Dosing Weight 86.364 kg, Total Volume: 1,000, Start date: 04/09/21 2:59:00 CDT, Duration: 30 day, Stop date: 05/09/21 2:58:00 ROLLER HAND, BSA: 2.03 m2, 0 Morphine 2020-06 No Notes: Memoria 0-17 (Same l 07:59: as:MORPhin [place] 00 e Sulfate) Acetaminoph 2020-06 No Notes: [place] tim[place] en 325 MG / 0-17 (Same as: l Hydrocodone 07:59: Ruffin Hermila nn Bitartrate 00 325/5) Do 5 MG Oral not exceed Tablet 4gm/day of [Ruffin acetaminop 5/325] hen. NS 1,000 mL 2020-06 No 1,000 mL, M emoria 0-17 Rate: 125 l 07:59: ml/hr, [place] 00 Infuse over: 8 hr, Route: IV, Dosing Weight 86.364 kg, Total Volume: 1,000, Start date: 04/09/21 2:59:00 CDT, Duration: 30 day, Stop date: 05/09/21 2:58:00 ROLLER HAND, BSA: 2.03 m2, 0 Morphine 2020-06 No Notes: Memoria 0-17 (Same l 07:59: as:MORPhin [place] 00 e Sulfate) Acetaminoph 2020-06 No Notes: [place] tim[place] en 325 MG / 0-17 (Same as: l Hydrocodone 07:59: Ruffin Hermila nn Bitartrate 00 325/5) Do 5 MG Oral not exceed Tablet 4gm/day of [Ruffin acetaminop 5/325] hen. NS 1,000 mL 2020-06 No 1,000 mL, M emoria 0-17 Rate: 125 l 07:59: ml/hr, [place] 00 Infuse over: 8 hr, Route: IV, Dosing Weight 86.364 kg, Total Volume: 1,000, Start date: 04/09/21 2:59:00 CDT, Duration: 30 day, Stop date: 05/09/21 2:58:00 ROLLER HAND, BSA: 2.03 m2, 0 Morphine 2020-06 No Notes: [facility]oria 0-17 (Same l 07:59: as:MORPhin Ran 00 e Sulfate) Acetaminoph 2020-06 No Notes: [place] en 325 MG / 0-17 (Same as: l Hydrocodone 07:59: Ruffin Hermila nn Bitartrate 00 325/5) Do 5 MG Oral not exceed Tablet 4gm/day of [Ruffin acetaminop 5/325] hen. NS 1,000 mL 2020-06 No 1,000 mL, M emoria 0-17 Rate: 125 l 07:59: ml/hr, [place] 00 Infuse over: 8 hr, Route: IV, Dosing Weight 86.364 kg, Total Volume: 1,000, Start date: 04/09/21 2:59:00 CDT, Duration: 30 day, Stop date: 05/09/21 2:58:00 ROLLER HAND, BSA: 2.03 m2, 0 Morphine 2020-06 No Notes: Memoria 0-17 (Same l 07:59: as:MORPhin [place] 00 e Sulfate) Acetaminoph 2020-06 No Notes: [place] tim[place] en 325 MG / 0-17 (Same as: l Hydrocodone 07:59: Ruffin Hermila nn Bitartrate 00 325/5) Do 5 MG Oral not exceed Tablet 4gm/day of [Ruffin acetaminop 5/325] hen. NS 1,000 mL 2020-06 No 1,000 mL, M emoria 0-17 Rate: 125 l 07:59: ml/hr, [place] 00 Infuse over: 8 hr, Route: IV, Dosing Weight 86.364 kg, Total Volume: 1,000, Start date: 04/09/21 2:59:00 CDT, Duration: 30 day, Stop date: 05/09/21 2:58:00 ROLLER HAND, BSA: 2.03 m2, 0 Morphine 2020-06 No Notes: [facility] 0-17 (Same l 07:59: as:MORPhin Ran 00 e Sulfate) Acetaminoph 2020-06 No Notes: [place] tim[place] en 325 MG / 0-17 (Same as: l Hydrocodone 07:59: Ruffin Hermila nn Bitartrate 00 325/5) Do 5 MG Oral not exceed Tablet 4gm/day of [Ruffin acetaminop 5/325] hen. NS 1,000 mL 2020-06 No 1,000 mL, M emoria 0-17 Rate: 125 l 07:59: ml/hr, [place] 00 Infuse over: 8 hr, Route: IV, Dosing Weight 86.364 kg, Total Volume: 1,000, Start date: 04/09/21 2:59:00 CDT, Duration: 30 day, Stop date: 05/09/21 2:58:00 ROLLER HAND, BSA: 2.03 m2, 0 Morphine 2020-06 No Notes: [facility] 0-17 (Same l 07:59: as:MORPhin Ran 00 e Sulfate) Acetaminoph 2020-06 No Notes: [place] en 325 MG / 0-17 (Same as: l Hydrocodone 07:59: Ruffin Hermila nn Bitartrate 00 325/5) Do 5 MG Oral not exceed Tablet 4gm/day of [Ruffin acetaminop 5/325] hen. NS 1,000 mL 2020-06 No 1,000 mL, M emoria 0-17 Rate: 125 l 07:59: ml/hr, [place] 00 Infuse over: 8 hr, Route: IV, Dosing Weight 86.364 kg, Total Volume: 1,000, Start date: 04/09/21 2:59:00 CDT, Duration: 30 day, Stop date: 05/09/21 2:58:00 ROLLER HAND, BSA: 2.03 m2, 0 Morphine 2020-06 No Notes: [facility] 0-17 (Same l 07:59: as:MORPhin Ran 00 e Sulfate) Acetaminoph 2020-06 No Notes: [place] en 325 MG / 0-17 (Same as: l Hydrocodone 07:59: Ruffin Hermila nn Bitartrate 00 325/5) Do 5 MG Oral not exceed Tablet 4gm/day of [Ruffin acetaminop 5/325] hen. NS 1,000 mL 2020-06 No 1,000 mL, M emoria 0-17 Rate: 125 l 07:59: ml/hr, [place] 00 Infuse over: 8 hr, Route: IV, Dosing Weight 86.364 kg, Total Volume: 1,000, Start date: 04/09/21 2:59:00 CDT, Duration: 30 day, Stop date: 05/09/21 2:58:00 ROLLER HAND, BSA: 2.03 m2, 0 Morphine 2020-06 No Notes: [facility]oria 0-17 (Same l 07:59: as:MORPhin [place] 00 e Sulfate) Acetaminoph 2020-06 No Notes: [place] en 325 MG / 0-17 (Same as: l Hydrocodone 07:59: Ruffin Hermila nn Bitartrate 00 325/5) Do 5 MG Oral not exceed Tablet 4gm/day of [Ruffin acetaminop 5/325] hen. NS 1,000 mL 2020-06 No 1,000 mL, M emoria 0-17 Rate: 125 l 07:59: ml/hr, [place] 00 Infuse over: 8 hr, Route: IV, Dosing Weight 86.364 kg, Total Volume: 1,000, Start date: 04/09/21 2:59:00 CDT, Duration: 30 day, Stop date: 05/09/21 2:58:00 ROLLER HAND, BSA: 2.03 m2, 0 Morphine 2020-06 No Notes: [facility] 0-17 (Same l 07:59: as:MORPhin Ran 00 e Sulfate) Acetaminoph 2020-06 No Notes: [place] 325 MG / 0-17 (Same as: l Hydrocodone 07:59: Ruffin Hermila nn Bitartrate 00 325/5) Do 5 MG Oral not exceed Tablet 4gm/day of [Ruffin acetaminop 5/325] hen. NS 1,000 mL 2020-06 No 1,000 mL, M [place] 0-17 Rate: 125 l 07:59: ml/hr, [place] 00 Infuse over: 8 hr, Route: IV, Dosing Weight 86.364 kg, Total Volume: 1,000, Start date: 04/09/21 2:59:00 CDT, Duration: 30 day, Stop date: 05/09/21 2:58:00 ROLLER HAND, BSA: 2.03 m2, 0 Morphine 2020-06 No Notes: Memoria 0-17 (Same l 07:59: as:MORPhin [place] 00 e Sulfate) Acetaminoph 2020-06 No Notes: [place] en 325 MG / 0-17 (Same as: l Hydrocodone 07:59: Ruffin Hermila nn Bitartrate 00 325/5) Do 5 MG Oral not exceed Tablet 4gm/day of [Ruffin acetaminop 5/325] hen. NS 1,000 mL 2020-06 No 1,000 mL, M emoria 0-17 Rate: 125 l 07:59: ml/hr, [place] 00 Infuse over: 8 hr, Route: IV, Dosing Weight 86.364 kg, Total Volume: 1,000, Start date: 04/09/21 2:59:00 CDT, Duration: 30 day, Stop date: 05/09/21 2:58:00 ROLLER HAND, BSA: 2.03 m2, 0 Morphine 2020-06 No Notes: Memoria 0-17 (Same l 07:59: as:MORPhin [place] 00 e Sulfate) Acetaminoph 2020-06 No Notes: [place] en 325 MG / 0-17 (Same as: l Hydrocodone 07:59: Ruffin Hermila nn Bitartrate 00 325/5) Do 5 MG Oral not exceed Tablet 4gm/day of [Ruffin acetaminop 5/325] hen. NS 1,000 mL 2020-06 No 1,000 mL, M emoria 0-17 Rate: 125 l 07:59: ml/hr, [place] 00 Infuse over: 8 hr, Route: IV, Dosing Weight 86.364 kg, Total Volume: 1,000, Start date: 04/09/21 2:59:00 CDT, Duration: 30 day, Stop date: 05/09/21 2:58:00 ROLLER HAND, BSA: 2.03 m2, 0 Morphine 2020-06 No Notes: Memoria 0-17 (Same l 07:59: as:MORPhin [place] 00 e Sulfate) Acetaminoph 2020-06 No Notes: [place] en 325 MG / 0-17 (Same as: l Hydrocodone 07:59: Ruffin Hermila nn Bitartrate 00 325/5) Do 5 MG Oral not exceed Tablet 4gm/day of [Ruffin acetaminop 5/325] hen. NS 1,000 mL 2020-06 No 1,000 mL, M emoria 0-17 Rate: 125 l 07:59: ml/hr, [place] 00 Infuse over: 8 hr, Route: IV, Dosing Weight 86.364 kg, Total Volume: 1,000, Start date: 04/09/21 2:59:00 CDT, Duration: 30 day, Stop date: 05/09/21 2:58:00 ROLLER HAND, BSA: 2.03 m2, 0 Morphine 2020-06 No Notes: Memoria 0-17 (Same l 07:59: as:MORPhin [place] 00 e Sulfate) Acetaminoph 2020-06 No Notes: [place] tim[place] en 325 MG / 0-17 (Same as: l Hydrocodone 07:59: Ruffin Hermila nn Bitartrate 00 325/5) Do 5 MG Oral not exceed Tablet 4gm/day of [Ruffin acetaminop 5/325] hen. NS 1,000 mL 2020-06 No 1,000 mL, M emoria 0-17 Rate: 125 l 07:59: ml/hr, [place] 00 Infuse over: 8 hr, Route: IV, Dosing Weight 86.364 kg, Total Volume: 1,000, Start date: 04/09/21 2:59:00 CDT, Duration: 30 day, Stop date: 05/09/21 2:58:00 ROLLER HAND, BSA: 2.03 m2, 0 Morphine 2020-06 No Notes: [facility]oria 0-17 (Same l 07:59: as:MORPhin [place] 00 e Sulfate) Acetaminoph 2020-06 No Notes: [place] en 325 MG / 0-17 (Same as: l Hydrocodone 07:59: Ruffin Hermila nn Bitartrate 00 325/5) Do 5 MG Oral not exceed Tablet 4gm/day of [Ruffin acetaminop 5/325] hen. NS 1,000 mL 2020-06 No 1,000 mL, M emoria 0-17 Rate: 125 l 07:59: ml/hr, [place] 00 Infuse over: 8 hr, Route: IV, Dosing Weight 86.364 kg, Total Volume: 1,000, Start date: 04/09/21 2:59:00 CDT, Duration: 30 day, Stop date: 05/09/21 2:58:00 ROLLER HAND, BSA: 2.03 m2, 0 Morphine 2020-06 No Notes: Memoria 0-17 (Same l 07:59: as:MORPhin Ran 00 e Sulfate) Acetaminoph 2020-06 No Notes: Sherman timbo en 325 MG / 0-17 (Same as: l Hydrocodone 07:59: Ruffin Hermila nn Bitartrate 00 325/5) Do 5 MG Oral not exceed Tablet 4gm/day of [Ruffin acetaminop 5/325] hen. NS 1,000 mL 2020-06 No 1,000 mL, M emoria 0-17 Rate: 125 l 07:59: ml/hr, Ran 00 Infuse over: 8 hr, Route: IV, Dosing Weight 86.364 kg, Total Volume: 1,000, Start date: 04/09/21 2:59:00 CDT, Duration: 30 day, Stop date: 05/09/21 2:58:00 ROLLER HAND, BSA: 2.03 m2, 0 Morphine 2020-06 No Notes: Memoria 0-17 (Same l 07:59: as:MORPhin e Sulfate) Acetaminoph 2020-06 No Notes: Sherman timbo en 325 MG / 0-17 (Same as: l Hydrocodone 07:59: Ruffin Hermila nn Bitartrate 00 325/5) Do 5 MG Oral not exceed Tablet 4gm/day of [Ruffin acetaminop 5/325] hen. Dextrose 2020-06 No 12.5 gm, Memor ia 50% Syringe 0-17 25 mL, l (D50W) 07:57: Route: Ran 00 IVP, Drug Form: INJ, Dosing Weight 86.364, kg, PRN, PRN Blood Glucose Results, Start date: 04/09/21 2:57:00 CDT, Duration: 30 day, Stop date: 05/09/21 1:56:00 ROLLER HAND, 0 Glucagon 2020-06 No 1 mg, Memoria 0-17 Route: IM, l 07:57: Drug form: [place] 00 PDR/INJ, PRN, Dosing Weight 86.364, kg, PRN Blood Glucose Results, Start date: 04/09/21 2:57:00 CDT, Duration: 30 day, Stop date: 05/09/21 1:56:00 ROLLER HAND, 0 Bisacodyl 2020-06 No Notes: Memori a 0-17 (Same As: l 07:57: Dulcolax, Ran 00 Bisco-Lax) Ondansetron 2020-06 No Notes: Sherman timbo 0-17 (Same as: l 07:57: Zofran) MEDICATION WASTE Product Size: 4 mg Product Wasted: ___ mg Melatonin 2020-06 No Notes: Memori a 0-17 (Same as: l 07:57: Melatonin) Acetaminoph 2020-06 No Notes: Do M emoria en 0-17 not exceed l 07:57: 4 gm/day. [place] 00 (Same as: Tylenol) Dextrose 2020-06 No 12.5 gm, Memor ia 50% Syringe 0-17 25 mL, l (D50W) 07:57: Route: [place] 00 IVP, Drug Form: INJ, Dosing Weight 86.364, kg, PRN, PRN Blood Glucose Results, Start date: 04/09/21 2:57:00 CDT, Duration: 30 day, Stop date: 05/09/21 1:56:00 ROLLER HAND, 0 Glucagon 2020-06 No 1 mg, Memoria 0-17 Route: IM, l 07:57: Drug form: [place] 00 PDR/INJ, PRN, Dosing Weight 86.364, kg, PRN Blood Glucose Results, Start date: 04/09/21 2:57:00 CDT, Duration: 30 day, Stop date: 05/09/21 1:56:00 ROLLER HAND, 0 Bisacodyl 2020-06 No Notes: Memori a 0-17 (Same As: l 07:57: Dulcolax, Ran 00 Bisco-Lax) Ondansetron 2020-06 No Notes: [place] timbo 0-17 (Same as: l 07:57: Zofran) MEDICATION WASTE Product Size: 4 mg Product Wasted: ___ mg Melatonin 2020-06 No Notes: Memori a 0-17 (Same as: l 07:57: Melatonin) Acetaminoph 2020-06 No Notes: Do M emoria en 0-17 not exceed l 07:57: 4 gm/day. (Same as: Tylenol) Dextrose 2020-06 No 12.5 gm, Memor ia 50% Syringe 0-17 25 mL, l (D50W) 07:57: Route: IVP, Drug Form: INJ, Dosing Weight 86.364, kg, PRN, PRN Blood Glucose Results, Start date: 04/09/21 2:57:00 CDT, Duration: 30 day, Stop date: 05/09/21 1:56:00 ROLLER HAND, 0 Glucagon 2020-06 No 1 mg, Memoria 0-17 Route: IM, l 07:57: Drug form: PDR/INJ, PRN, Dosing Weight 86.364, kg, PRN Blood Glucose Results, Start date: 04/09/21 2:57:00 CDT, Duration: 30 day, Stop date: 05/09/21 1:56:00 ROLLER HAND, 0 Bisacodyl 2020-06 No Notes: Memori a 0-17 (Same As: l 07:57: Dulcolax, Ran Bisco-Lax) Ondansetron 2020-06 No Notes: Sherman timbo 0-17 (Same as: l 07:57: Zofran) MEDICATION WASTE Product Size: 4 mg Product Wasted: ___ mg Melatonin 2020-06 No Notes: Memori a 0-17 (Same as: l 07:57: Melatonin) Acetaminoph 2020-06 No Notes: Do M emoria en 0-17 not exceed l 07:57: 4 gm/day. (Same as: Tylenol) Dextrose 2020-06 No 12.5 gm, Memor ia 50% Syringe 0-17 25 mL, l (D50W) 07:57: Route: Ran 00 IVP, Drug Form: INJ, Dosing Weight 86.364, kg, PRN, PRN Blood Glucose Results, Start date: 04/09/21 2:57:00 CDT, Duration: 30 day, Stop date: 05/09/21 1:56:00 ROLLER HAND, 0 Glucagon 2020-06 No 1 mg, Memoria 0-17 Route: IM, l 07:57: Drug form: [place] 00 PDR/INJ, PRN, Dosing Weight 86.364, kg, PRN Blood Glucose Results, Start date: 04/09/21 2:57:00 CDT, Duration: 30 day, Stop date: 05/09/21 1:56:00 ROLLER HAND, 0 Bisacodyl 2020-06 No Notes: Memori a 0-17 (Same As: l 07:57: Dulcolax, [place]-Lax) Ondansetron 2020-06 No Notes: Sherman timbo 0-17 (Same as: l 07:57: Zofran) MEDICATION WASTE Product Size: 4 mg Product Wasted: ___ mg Melatonin 2020-06 No Notes: Memori a 0-17 (Same as: l 07:57: Melatonin) Acetaminoph 2020-06 No Notes: Do M emoria en 0-17 not exceed l 07:57: 4 gm/day. [place] 00 (Same as: Tylenol) Dextrose 2020-06 No 12.5 gm, Memor ia 50% Syringe 0-17 25 mL, l (D50W) 07:57: Route: IVP, Drug Form: INJ, Dosing Weight 86.364, kg, PRN, PRN Blood Glucose Results, Start date: 04/09/21 2:57:00 CDT, Duration: 30 day, Stop date: 05/09/21 1:56:00 ROLLER HAND, 0 Glucagon 2020-06 No 1 mg, Memoria 0-17 Route: IM, l 07:57: Drug form: PDR/INJ, PRN, Dosing Weight 86.364, kg, PRN Blood Glucose Results, Start date: 04/09/21 2:57:00 CDT, Duration: 30 day, Stop date: 05/09/21 1:56:00 ROLLER HAND, 0 Bisacodyl 2020-06 No Notes: Memori a 0-17 (Same As: l 07:57: Dulcolax, [place]-Lax) Ondansetron 2020-06 No Notes: Sherman timbo 0-17 (Same as: l 07:57: Zofran) MEDICATION WASTE Product Size: 4 mg Product Wasted: ___ mg Melatonin 2020-06 No Notes: Memori a 0-17 (Same as: l 07:57: Melatonin) Acetaminoph 2020-06 No Notes: Do M emoria en 0-17 not exceed l 07:57: 4 gm/day. (Same as: Tylenol) Dextrose 2020-06 No 12.5 gm, Memor ia 50% Syringe 0-17 25 mL, l (D50W) 07:57: Route: IVP, Drug Form: INJ, Dosing Weight 86.364, kg, PRN, PRN Blood Glucose Results, Start date: 04/09/21 2:57:00 CDT, Duration: 30 day, Stop date: 05/09/21 1:56:00 ROLLER HAND, 0 Glucagon 2020-06 No 1 mg, Memoria 0-17 Route: IM, l 07:57: Drug form: [place] 00 PDR/INJ, PRN, Dosing Weight 86.364, kg, PRN Blood Glucose Results, Start date: 04/09/21 2:57:00 CDT, Duration: 30 day, Stop date: 05/09/21 1:56:00 ROLLER HAND, 0 Bisacodyl 2020-06 No Notes: Memori a 0-17 (Same As: l 07:57: Dulcolax, Ran Bisco-Lax) Ondansetron 2020-06 No Notes: Sherman timbo 0-17 (Same as: l 07:57: Zofran) MEDICATION WASTE Product Size: 4 mg Product Wasted: ___ mg Melatonin 2020-06 No Notes: Memori a 0-17 (Same as: l 07:57: Melatonin) Acetaminoph 2020-06 No Notes: Do M emoria en 0-17 not exceed l 07:57: 4 gm/day. [place] 00 (Same as: Tylenol) Dextrose 2020-06 No 12.5 gm, Memor ia 50% Syringe 0-17 25 mL, l (D50W) 07:57: Route: [place] 00 IVP, Drug Form: INJ, Dosing Weight 86.364, kg, PRN, PRN Blood Glucose Results, Start date: 04/09/21 2:57:00 CDT, Duration: 30 day, Stop date: 05/09/21 1:56:00 ROLLER HAND, 0 Glucagon 2020-06 No 1 mg, Memoria 0-17 Route: IM, l 07:57: Drug form: [place] 00 PDR/INJ, PRN, Dosing Weight 86.364, kg, PRN Blood Glucose Results, Start date: 04/09/21 2:57:00 CDT, Duration: 30 day, Stop date: 05/09/21 1:56:00 ROLLER HAND, 0 Bisacodyl 2020-06 No Notes: Memori a 0-17 (Same As: l 07:57: Dulcolax, [place] Bisco-Lax) Ondansetron 2020-06 No Notes: Sherman timbo 0-17 (Same as: l 07:57: Zofran) MEDICATION WASTE Product Size: 4 mg Product Wasted: ___ mg Melatonin 2020-06 No Notes: Memori a 0-17 (Same as: l 07:57: Melatonin) Acetaminoph 2020-06 No Notes: Do M emoria en 0-17 not exceed l 07:57: 4 gm/day. (Same as: Tylenol) Dextrose 2020-06 No 12.5 gm, Mem[facility] ia 50% Syringe 0-17 25 mL, l (D50W) 07:57: Route: [place] 00 IVP, Drug Form: INJ, Dosing Weight 86.364, kg, PRN, PRN Blood Glucose Results, Start date: 04/09/21 2:57:00 CDT, Duration: 30 day, Stop date: 05/09/21 1:56:00 ROLLER HAND, 0 Glucagon 2020-06 No 1 mg, Memoria 0-17 Route: IM, l 07:57: Drug form: [place] 00 PDR/INJ, PRN, Dosing Weight 86.364, kg, PRN Blood Glucose Results, Start date: 04/09/21 2:57:00 CDT, Duration: 30 day, Stop date: 05/09/21 1:56:00 ROLLER HAND, 0 Bisacodyl 2020-06 No Notes: Memori a 0-17 (Same As: l 07:57: Dulcolax, [place]-Lax) Ondansetron 2020-06 No Notes: [place] timbo 0-17 (Same as: l 07:57: Zofran) MEDICATION WASTE Product Size: 4 mg Product Wasted: ___ mg Melatonin 2020-06 No Notes: Memori a 0-17 (Same as: l 07:57: Melatonin) Acetaminoph 2020-06 No Notes: Do M emoria en 0-17 not exceed l 07:57: 4 gm/day. (Same as: Tylenol) Dextrose 2020-06 No 12.5 gm, Mem[facility] ia 50% Syringe 0-17 25 mL, l (D50W) 07:57: Route: Ran 00 IVP, Drug Form: INJ, Dosing Weight 86.364, kg, PRN, PRN Blood Glucose Results, Start date: 04/09/21 2:57:00 CDT, Duration: 30 day, Stop date: 05/09/21 1:56:00 ROLLER HAND, 0 Glucagon 2020-06 No 1 mg, Memoria 0-17 Route: IM, l 07:57: Drug form: [place] 00 PDR/INJ, PRN, Dosing Weight 86.364, kg, PRN Blood Glucose Results, Start date: 04/09/21 2:57:00 CDT, Duration: 30 day, Stop date: 05/09/21 1:56:00 ROLLER HAND, 0 Bisacodyl 2020-06 No Notes: Memori a 0-17 (Same As: l 07:57: Dulcolax, [place]-Lax) Ondansetron 2020-06 No Notes: [place] timbo 0-17 (Same as: l 07:57: Zofran) MEDICATION WASTE Product Size: 4 mg Product Wasted: ___ mg Melatonin 2020-06 No Notes: Memori a 0-17 (Same as: l 07:57: Melatonin) Acetaminoph 2020-06 No Notes: Do M emoria en 0-17 not exceed l 07:57: 4 gm/day. (Same as: Tylenol) Dextrose 2020-06 No 12.5 gm, Mem[facility] ia 50% Syringe 0-17 25 mL, l (D50W) 07:57: Route: IVP, Drug Form: INJ, Dosing Weight 86.364, kg, PRN, PRN Blood Glucose Results, Start date: 04/09/21 2:57:00 CDT, Duration: 30 day, Stop date: 05/09/21 1:56:00 ROLLER HAND, 0 Glucagon 2020-06 No 1 mg, Memoria 0-17 Route: IM, l 07:57: Drug form: PDR/INJ, PRN, Dosing Weight 86.364, kg, PRN Blood Glucose Results, Start date: 04/09/21 2:57:00 CDT, Duration: 30 day, Stop date: 05/09/21 1:56:00 ROLLER HAND, 0 Bisacodyl 2020-06 No Notes: Memori a 0-17 (Same As: l 07:57: Dulcolax, [place]-Lax) Ondansetron 2020-06 No Notes: [place] timbo 0-17 (Same as: l 07:57: Zofran) MEDICATION WASTE Product Size: 4 mg Product Wasted: ___ mg Melatonin 2020-06 No Notes: Memori a 0-17 (Same as: l 07:57: Melatonin) Acetaminoph 2020-06 No Notes: Do M emoria en 0-17 not exceed l 07:57: 4 gm/day. (Same as: Tylenol) Dextrose 2020-06 No 12.5 gm, Memor ia 50% Syringe 0-17 25 mL, l (D50W) 07:57: Route: [place] 00 IVP, Drug Form: INJ, Dosing Weight 86.364, kg, PRN, PRN Blood Glucose Results, Start date: 04/09/21 2:57:00 CDT, Duration: 30 day, Stop date: 05/09/21 1:56:00 ROLLER HAND, 0 Glucagon 2020-06 No 1 mg, Memoria 0-17 Route: IM, l 07:57: Drug form: [place] 00 PDR/INJ, PRN, Dosing Weight 86.364, kg, PRN Blood Glucose Results, Start date: 04/09/21 2:57:00 CDT, Duration: 30 day, Stop date: 05/09/21 1:56:00 ROLLER HAND, 0 Bisacodyl 2020-06 No Notes: Memori a 0-17 (Same As: l 07:57: Dulcolax, [place]-Lax) Ondansetron 2020-06 No Notes: [place] timbo 0-17 (Same as: l 07:57: Zofran) MEDICATION WASTE Product Size: 4 mg Product Wasted: ___ mg Melatonin 2020-06 No Notes: Memori a 0-17 (Same as: l 07:57: Melatonin) Acetaminoph 2020-06 No Notes: Do M emoria en 0-17 not exceed l 07:57: 4 gm/day. (Same as: Tylenol) Dextrose 2020-06 No 12.5 gm, Memor ia 50% Syringe 0-17 25 mL, l (D50W) 07:57: Route: Ran 00 IVP, Drug Form: INJ, Dosing Weight 86.364, kg, PRN, PRN Blood Glucose Results, Start date: 04/09/21 2:57:00 CDT, Duration: 30 day, Stop date: 05/09/21 1:56:00 ROLLER HAND, 0 Glucagon 2020-06 No 1 mg, Memoria 0-17 Route: IM, l 07:57: Drug form: [place] 00 PDR/INJ, PRN, Dosing Weight 86.364, kg, PRN Blood Glucose Results, Start date: 04/09/21 2:57:00 CDT, Duration: 30 day, Stop date: 05/09/21 1:56:00 ROLLER HAND, 0 Bisacodyl 2020-06 No Notes: Memori a 0-17 (Same As: l 07:57: Dulcolax, [place] Bisco-Lax) Ondansetron 2020-06 No Notes: Sherman timbo 0-17 (Same as: l 07:57: Zofran) MEDICATION WASTE Product Size: 4 mg Product Wasted: ___ mg Melatonin 2020-06 No Notes: Memori a 0-17 (Same as: l 07:57: Melatonin) Acetaminoph 2020-06 No Notes: Do M emoria en 0-17 not exceed l 07:57: 4 gm/day. (Same as: Tylenol) Dextrose 2020-06 No 12.5 gm, Memor ia 50% Syringe 0-17 25 mL, l (D50W) 07:57: Route: [place] 00 IVP, Drug Form: INJ, Dosing Weight 86.364, kg, PRN, PRN Blood Glucose Results, Start date: 04/09/21 2:57:00 CDT, Duration: 30 day, Stop date: 05/09/21 1:56:00 ROLLER HAND, 0 Glucagon 2020-06 No 1 mg, Memoria 0-17 Route: IM, l 07:57: Drug form: [place] 00 PDR/INJ, PRN, Dosing Weight 86.364, kg, PRN Blood Glucose Results, Start date: 04/09/21 2:57:00 CDT, Duration: 30 day, Stop date: 05/09/21 1:56:00 ROLLER HAND, 0 Bisacodyl 2020-06 No Notes: Memori a 0-17 (Same As: l 07:57: Dulcolax, Ran [place]-Lax) Ondansetron 2020-06 No Notes: Sherman timbo 0-17 (Same as: l 07:57: Zofran) MEDICATION WASTE Product Size: 4 mg Product Wasted: ___ mg Melatonin 2020-06 No Notes: Memori a 0-17 (Same as: l 07:57: Melatonin) Acetaminoph 2020-06 No Notes: Do M emoria en 0-17 not exceed l 07:57: 4 gm/day. (Same as: Tylenol) Dextrose 2020-06 No 12.5 gm, Memor ia 50% Syringe 0-17 25 mL, l (D50W) 07:57: Route: [place] 00 IVP, Drug Form: INJ, Dosing Weight 86.364, kg, PRN, PRN Blood Glucose Results, Start date: 04/09/21 2:57:00 CDT, Duration: 30 day, Stop date: 05/09/21 1:56:00 ROLLER HAND, 0 Glucagon 2020-06 No 1 mg, Memoria 0-17 Route: IM, l 07:57: Drug form: [place] 00 PDR/INJ, PRN, Dosing Weight 86.364, kg, PRN Blood Glucose Results, Start date: 04/09/21 2:57:00 CDT, Duration: 30 day, Stop date: 05/09/21 1:56:00 ROLLER HAND, 0 Bisacodyl 2020-06 No Notes: Memori a 0-17 (Same As: l 07:57: Dulcolax, [place]-Lax) Ondansetron 2020-06 No Notes: Sherman timbo 0-17 (Same as: l 07:57: Zofran) MEDICATION WASTE Product Size: 4 mg Product Wasted: ___ mg Melatonin 2020-06 No Notes: Memori a 0-17 (Same as: l 07:57: Melatonin) Acetaminoph 2020-06 No Notes: Do M emoria en 0-17 not exceed l 07:57: 4 gm/day. (Same as: Tylenol) Dextrose 2020-06 No 12.5 gm, Memor ia 50% Syringe 0-17 25 mL, l (D50W) 07:57: Route: IVP, Drug Form: INJ, Dosing Weight 86.364, kg, PRN, PRN Blood Glucose Results, Start date: 04/09/21 2:57:00 CDT, Duration: 30 day, Stop date: 05/09/21 1:56:00 ROLLER HAND, 0 Glucagon 2020-06 No 1 mg, Memoria 0-17 Route: IM, l 07:57: Drug form: [place] 00 PDR/INJ, PRN, Dosing Weight 86.364, kg, PRN Blood Glucose Results, Start date: 04/09/21 2:57:00 CDT, Duration: 30 day, Stop date: 05/09/21 1:56:00 ROLLER HAND, 0 Bisacodyl 2020-06 No Notes: Memori a 0-17 (Same As: l 07:57: Dulcolax, [place]-Lax) Ondansetron 2020-06 No Notes: [place] timbo 0-17 (Same as: l 07:57: Zofran) MEDICATION WASTE Product Size: 4 mg Product Wasted: ___ mg Melatonin 2020-06 No Notes: Memori a 0-17 (Same as: l 07:57: Melatonin) Acetaminoph 2020-06 No Notes: Do M emoria en 0-17 not exceed l 07:57: 4 gm/day. (Same as: Tylenol) Dextrose 2020-06 No 12.5 gm, Mem[facility] ia 50% Syringe 0-17 25 mL, l (D50W) 07:57: Route: IVP, Drug Form: INJ, Dosing Weight 86.364, kg, PRN, PRN Blood Glucose Results, Start date: 04/09/21 2:57:00 CDT, Duration: 30 day, Stop date: 05/09/21 1:56:00 ROLLER HAND, 0 Glucagon 2020-06 No 1 mg, Memoria 0-17 Route: IM, l 07:57: Drug form: [place] 00 PDR/INJ, PRN, Dosing Weight 86.364, kg, PRN Blood Glucose Results, Start date: 04/09/21 2:57:00 CDT, Duration: 30 day, Stop date: 05/09/21 1:56:00 ROLLER HAND, 0 Bisacodyl 2020-06 No Notes: Memori a 0-17 (Same As: l 07:57: Dulcolax, [place] Bisco-Lax) Ondansetron 2020-06 No Notes: [place] timbo 0-17 (Same as: l 07:57: Zofran) MEDICATION WASTE Product Size: 4 mg Product Wasted: ___ mg Melatonin 2020-06 No Notes: Memori a 0-17 (Same as: l 07:57: Melatonin) Acetaminoph 2020-06 No Notes: Do M emoria en 0-17 not exceed l 07:57: 4 gm/day. (Same as: Tylenol) Dextrose 2020-06 No 12.5 gm, Mem[facility] ia 50% Syringe 0-17 25 mL, l (D50W) 07:57: Route: IVP, Drug Form: INJ, Dosing Weight 86.364, kg, PRN, PRN Blood Glucose Results, Start date: 04/09/21 2:57:00 CDT, Duration: 30 day, Stop date: 05/09/21 1:56:00 ROLLER HAND, 0 Glucagon 2020-06 No 1 mg, Memoria 0-17 Route: IM, l 07:57: Drug form: PDR/INJ, PRN, Dosing Weight 86.364, kg, PRN Blood Glucose Results, Start date: 04/09/21 2:57:00 CDT, Duration: 30 day, Stop date: 05/09/21 1:56:00 ROLLER HAND, 0 Bisacodyl 2020-06 No Notes: Memori a 0-17 (Same As: l 07:57: Dulcolax, [place] 00 Bisco-Lax) Ondansetron 2020-06 No Notes: [place] timbo 0-17 (Same as: l 07:57: Zofran) MEDICATION WASTE Product Size: 4 mg Product Wasted: ___ mg Melatonin 2020-06 No Notes: Memori a 0-17 (Same as: l 07:57: Melatonin) Acetaminoph 2020-06 No Notes: Do M emoria en 0-17 not exceed l 07:57: 4 gm/day. (Same as: Tylenol) Dextrose 2020-06 No 12.5 gm, Mem[facility] ia 50% Syringe 0-17 25 mL, l (D50W) 07:57: Route: [place] 00 IVP, Drug Form: INJ, Dosing Weight 86.364, kg, PRN, PRN Blood Glucose Results, Start date: 04/09/21 2:57:00 CDT, Duration: 30 day, Stop date: 05/09/21 1:56:00 ROLLER HAND, 0 Glucagon 2020-06 No 1 mg, Memoria 0-17 Route: IM, l 07:57: Drug form: [place] 00 PDR/INJ, PRN, Dosing Weight 86.364, kg, PRN Blood Glucose Results, Start date: 04/09/21 2:57:00 CDT, Duration: 30 day, Stop date: 05/09/21 1:56:00 ROLLER HAND, 0 Bisacodyl 2020-06 No Notes: Memori a 0-17 (Same As: l 07:57: Dulcolax, [place]-Lax) Ondansetron 2020-06 No Notes: [place] timbo 0-17 (Same as: l 07:57: Zofran) MEDICATION WASTE Product Size: 4 mg Product Wasted: ___ mg Melatonin 2020-06 No Notes: Memori a 0-17 (Same as: l 07:57: Melatonin) Acetaminoph 2020-06 No Notes: Do M emoria en 0-17 not exceed l 07:57: 4 gm/day. (Same as: Tylenol) Dextrose 2020-06 No 12.5 gm, Mem[facility] ia 50% Syringe 0-17 25 mL, l (D50W) 07:57: Route: [place] 00 IVP, Drug Form: INJ, Dosing Weight 86.364, kg, PRN, PRN Blood Glucose Results, Start date: 04/09/21 2:57:00 CDT, Duration: 30 day, Stop date: 05/09/21 1:56:00 ROLLER HAND, 0 Glucagon 2020-06 No 1 mg, Memoria 0-17 Route: IM, l 07:57: Drug form: [place] 00 PDR/INJ, PRN, Dosing Weight 86.364, kg, PRN Blood Glucose Results, Start date: 04/09/21 2:57:00 CDT, Duration: 30 day, Stop date: 05/09/21 1:56:00 ROLLER HAND, 0 Bisacodyl 2020-06 No Notes: Memori a 0-17 (Same As: l 07:57: Dulcolax, [place] 00 B[place]-Lax) Ondansetron 2020-06 No Notes: [place] timbo 0-17 (Same as: l 07:57: Zofran) MEDICATION WASTE Product Size: 4 mg Product Wasted: ___ mg Melatonin 2020-06 No Notes: Memori a 0-17 (Same as: l 07:57: Melatonin) Acetaminoph 2020-06 No Notes: Do M emoria en 0-17 not exceed l 07:57: 4 gm/day. (Same as: Tylenol) Dextrose 2020-06 No 12.5 gm, Mem[facility] ia 50% Syringe 0-17 25 mL, l (D50W) 07:57: Route: IVP, Drug Form: INJ, Dosing Weight 86.364, kg, PRN, PRN Blood Glucose Results, Start date: 04/09/21 2:57:00 CDT, Duration: 30 day, Stop date: 05/09/21 1:56:00 ROLLER HAND, 0 Glucagon 2020-06 No 1 mg, Memoria 0-17 Route: IM, l 07:57: Drug form: [place] 00 PDR/INJ, PRN, Dosing Weight 86.364, kg, PRN Blood Glucose Results, Start date: 04/09/21 2:57:00 CDT, Duration: 30 day, Stop date: 05/09/21 1:56:00 ROLLER HAND, 0 Bisacodyl 2020-06 No Notes: Memori a 0-17 (Same As: l 07:57: Dulcolax, [place] 00 B[place]-Lax) Ondansetron 2020-06 No Notes: [place] timbo 0-17 (Same as: l 07:57: Zofran) MEDICATION WASTE Product Size: 4 mg Product Wasted: ___ mg Melatonin 2020-06 No Notes: Memori a 0-17 (Same as: l 07:57: Melatonin) Acetaminoph 2020-06 No Notes: Do M emoria en 0-17 not exceed l 07:57: 4 gm/day. (Same as: Tylenol) Dextrose 2020-06 No 12.5 gm, Memor ia 50% Syringe 0-17 25 mL, l (D50W) 07:57: Route: [place] 00 IVP, Drug Form: INJ, Dosing Weight 86.364, kg, PRN, PRN Blood Glucose Results, Start date: 04/09/21 2:57:00 CDT, Duration: 30 day, Stop date: 05/09/21 1:56:00 ROLLER HAND, 0 Glucagon 2020-06 No 1 mg, Memoria 0-17 Route: IM, l 07:57: Drug form: [place] 00 PDR/INJ, PRN, Dosing Weight 86.364, kg, PRN Blood Glucose Results, Start date: 04/09/21 2:57:00 CDT, Duration: 30 day, Stop date: 05/09/21 1:56:00 ROLLER HAND, 0 Bisacodyl 2020-06 No Notes: Memori a 0-17 (Same As: l 07:57: Dulcolax, [place]-Lax) Ondansetron 2020-06 No Notes: [place] timbo 0-17 (Same as: l 07:57: Zofran) MEDICATION WASTE Product Size: 4 mg Product Wasted: ___ mg Melatonin 2020-06 No Notes: Memori a 0-17 (Same as: l 07:57: Melatonin) Acetaminoph 2020-06 No Notes: Do M emoria en 0-17 not exceed l 07:57: 4 gm/day. [place] 00 (Same as: Tylenol) Dextrose 2020-06 No 12.5 gm, Memor ia 50% Syringe 0-17 25 mL, l (D50W) 07:57: Route: [place] 00 IVP, Drug Form: INJ, Dosing Weight 86.364, kg, PRN, PRN Blood Glucose Results, Start date: 04/09/21 2:57:00 CDT, Duration: 30 day, Stop date: 05/09/21 1:56:00 ROLLER HAND, 0 Glucagon 2020-06 No 1 mg, Memoria 0-17 Route: IM, l 07:57: Drug form: [place] 00 PDR/INJ, PRN, Dosing Weight 86.364, kg, PRN Blood Glucose Results, Start date: 04/09/21 2:57:00 CDT, Duration: 30 day, Stop date: 05/09/21 1:56:00 ROLLER HAND, 0 Bisacodyl 2020-06 No Notes: Memori a 0-17 (Same As: l 07:57: Dulcolax, [place] 00 [place]-Lax) Ondansetron 2020-06 No Notes: [place] timbo 0-17 (Same as: l 07:57: Zofran) MEDICATION WASTE Product Size: 4 mg Product Wasted: ___ mg Melatonin 2020-06 No Notes: Memori a 0-17 (Same as: l 07:57: Melatonin) Acetaminoph 2020-06 No Notes: Do M emoria en 0-17 not exceed l 07:57: 4 gm/day. [place] 00 (Same as: Tylenol) Dextrose 2020-06 No 12.5 gm, Memor ia 50% Syringe 0-17 25 mL, l (D50W) 07:57: Route: [place] 00 IVP, Drug Form: INJ, Dosing Weight 86.364, kg, PRN, PRN Blood Glucose Results, Start date: 04/09/21 2:57:00 CDT, Duration: 30 day, Stop date: 05/09/21 1:56:00 ROLLER HAND, 0 Glucagon 2020-06 No 1 mg, Memoria 0-17 Route: IM, l 07:57: Drug form: [place] 00 PDR/INJ, PRN, Dosing Weight 86.364, kg, PRN Blood Glucose Results, Start date: 04/09/21 2:57:00 CDT, Duration: 30 day, Stop date: 05/09/21 1:56:00 ROLLER HAND, 0 Bisacodyl 2020-06 No Notes: Memori a 0-17 (Same As: l 07:57: Dulcolax, [place] 00 [place]-Lax) Ondansetron 2020-06 No Notes: [place] timbo 0-17 (Same as: l 07:57: Zofran) MEDICATION WASTE Product Size: 4 mg Product Wasted: ___ mg Melatonin 2020-06 No Notes: Memori a 0-17 (Same as: l 07:57: Melatonin) Acetaminoph 2020-06 No Notes: Do M emoria en 0-17 not exceed l 07:57: 4 gm/day. (Same as: Tylenol) Dextrose 2020-06 No 12.5 gm, [facility] ia 50% Syringe 0-17 25 mL, l (D50W) 07:57: Route: [place] 00 IVP, Drug Form: INJ, Dosing Weight 86.364, kg, PRN, PRN Blood Glucose Results, Start date: 04/09/21 2:57:00 CDT, Duration: 30 day, Stop date: 05/09/21 1:56:00 ROLLER HAND, 0 Glucagon 2020-06 No 1 mg, Memoria 0-17 Route: IM, l 07:57: Drug form: [place] 00 PDR/INJ, PRN, Dosing Weight 86.364, kg, PRN Blood Glucose Results, Start date: 04/09/21 2:57:00 CDT, Duration: 30 day, Stop date: 05/09/21 1:56:00 ROLLER HAND, 0 Bisacodyl 2020-06 No Notes: Memori a 0-17 (Same As: l 07:57: Dulcolax, [place]-Lax) Ondansetron 2020-06 No Notes: [place] timbo 0-17 (Same as: l 07:57: Zofran) MEDICATION WASTE Product Size: 4 mg Product Wasted: ___ mg Melatonin 2020-06 No Notes: Memori a 0-17 (Same as: l 07:57: Melatonin) Acetaminoph 2020-06 No Notes: Do M emoria en 0-17 not exceed l 07:57: 4 gm/day. (Same as: Tylenol) Dextrose 2020-06 No 12.5 gm, [facility] ia 50% Syringe 0-17 25 mL, l (D50W) 07:57: Route: [place] 00 IVP, Drug Form: INJ, Dosing Weight 86.364, kg, PRN, PRN Blood Glucose Results, Start date: 04/09/21 2:57:00 CDT, Duration: 30 day, Stop date: 05/09/21 1:56:00 ROLLER HAND, 0 Glucagon 2020-06 No 1 mg, Memoria 0-17 Route: IM, l 07:57: Drug form: PDR/INJ, PRN, Dosing Weight 86.364, kg, PRN Blood Glucose Results, Start date: 04/09/21 2:57:00 CDT, Duration: 30 day, Stop date: 05/09/21 1:56:00 ROLLER HAND, 0 Bisacodyl 2020-06 No Notes: Memori a 0-17 (Same As: l 07:57: Dulcolax, [place]-Lax) Ondansetron 2020-06 No Notes: [place] timbo 0-17 (Same as: l 07:57: Zofran) MEDICATION WASTE Product Size: 4 mg Product Wasted: ___ mg Melatonin 2020-06 No Notes: Memori a 0-17 (Same as: l 07:57: Melatonin) Acetaminoph 2020-06 No Notes: Do M emoria en 0-17 not exceed l 07:57: 4 gm/day. (Same as: Tylenol) Dextrose 2020-06 No 12.5 gm, [facility] ia 50% Syringe 0-17 25 mL, l (D50W) 07:57: Route: IVP, Drug Form: INJ, Dosing Weight 86.364, kg, PRN, PRN Blood Glucose Results, Start date: 04/09/21 2:57:00 CDT, Duration: 30 day, Stop date: 05/09/21 1:56:00 ROLLER HAND, 0 Glucagon 2020-06 No 1 mg, Memoria 0-17 Route: IM, l 07:57: Drug form: PDR/INJ, PRN, Dosing Weight 86.364, kg, PRN Blood Glucose Results, Start date: 04/09/21 2:57:00 CDT, Duration: 30 day, Stop date: 05/09/21 1:56:00 ROLLER HAND, 0 Bisacodyl 2020-06 No Notes: Memori a 0-17 (Same As: l 07:57: Dulcolax, Ran 00 [place]-Lax) Ondansetron 2020-06 No Notes: [place] timbo 0-17 (Same as: l 07:57: Zofran) MEDICATION WASTE Product Size: 4 mg Product Wasted: ___ mg Melatonin 2020-06 No Notes: Memori a 0-17 (Same as: l 07:57: Melatonin) Acetaminoph 2020-06 No Notes: Do M emoria en 0-17 not exceed l 07:57: 4 gm/day. (Same as: Tylenol) Dextrose 2020-06 No 12.5 gm, Memor ia 50% Syringe 0-17 25 mL, l (D50W) 07:57: Route: [place] 00 IVP, Drug Form: INJ, Dosing Weight 86.364, kg, PRN, PRN Blood Glucose Results, Start date: 04/09/21 2:57:00 CDT, Duration: 30 day, Stop date: 05/09/21 1:56:00 ROLLER HAND, 0 Glucagon 2020-06 No 1 mg, Memoria 0-17 Route: IM, l 07:57: Drug form: PDR/INJ, PRN, Dosing Weight 86.364, kg, PRN Blood Glucose Results, Start date: 04/09/21 2:57:00 CDT, Duration: 30 day, Stop date: 05/09/21 1:56:00 ROLLER HAND, 0 Bisacodyl 2020-06 No Notes: Memori a 0-17 (Same As: l 07:57: Dulcolax, [place] 00 Bisco-Lax) Ondansetron 2020-06 No Notes: Sherman timbo 0-17 (Same as: l 07:57: Zofran) MEDICATION WASTE Product Size: 4 mg Product Wasted: ___ mg Melatonin 2020-06 No Notes: Memori a 0-17 (Same as: l 07:57: Melatonin) Acetaminoph 2020-06 No Notes: Do M emoria en 0-17 not exceed l 07:57: 4 gm/day. Ran 00 (Same as: Tylenol) Dextrose 2020-06 No 12.5 gm, Memor ia 50% Syringe 0-17 25 mL, l (D50W) 07:57: Route: [place] 00 IVP, Drug Form: INJ, Dosing Weight 86.364, kg, PRN, PRN Blood Glucose Results, Start date: 04/09/21 2:57:00 CDT, Duration: 30 day, Stop date: 05/09/21 1:56:00 ROLLER HAND, 0 Glucagon 2020-06 No 1 mg, Memoria 0-17 Route: IM, l 07:57: Drug form: [place] 00 PDR/INJ, PRN, Dosing Weight 86.364, kg, PRN Blood Glucose Results, Start date: 04/09/21 2:57:00 CDT, Duration: 30 day, Stop date: 05/09/21 1:56:00 ROLLER HAND, 0 Bisacodyl 2020-06 No Notes: Memori a 0-17 (Same As: l 07:57: Dulcolax, [place]-Lax) Ondansetron 2020-06 No Notes: [place] timbo 0-17 (Same as: l 07:57: Zofran) MEDICATION WASTE Product Size: 4 mg Product Wasted: ___ mg Melatonin 2020-06 No Notes: Memori a 0-17 (Same as: l 07:57: Melatonin) Acetaminoph 2020-06 No Notes: Do M emoria en 0-17 not exceed l 07:57: 4 gm/day. (Same as: Tylenol) Dextrose 2020-06 No 12.5 gm, Memor ia 50% Syringe 0-17 25 mL, l (D50W) 07:57: Route: [place] 00 IVP, Drug Form: INJ, Dosing Weight 86.364, kg, PRN, PRN Blood Glucose Results, Start date: 04/09/21 2:57:00 CDT, Duration: 30 day, Stop date: 05/09/21 1:56:00 ROLLER HAND, 0 Glucagon 2020-06 No 1 mg, Memoria 0-17 Route: IM, l 07:57: Drug form: Ran 00 PDR/INJ, PRN, Dosing Weight 86.364, kg, PRN Blood Glucose Results, Start date: 04/09/21 2:57:00 CDT, Duration: 30 day, Stop date: 05/09/21 1:56:00 ROLLER HAND, 0 Bisacodyl 2020-06 No Notes: Memori a 0-17 (Same As: l 07:57: Dulcolax, [place] Bisco-Lax) Ondansetron 2020-06 No Notes: [place] timbo 0-17 (Same as: l 07:57: Zofran) MEDICATION WASTE Product Size: 4 mg Product Wasted: ___ mg Melatonin 2020-06 No Notes: Memori a 0-17 (Same as: l 07:57: Melatonin) Acetaminoph 2020-06 No Notes: Do M emoria en 0-17 not exceed l 07:57: 4 gm/day. (Same as: Tylenol) Dextrose 2020-06 No 12.5 gm, Memor ia 50% Syringe 0-17 25 mL, l (D50W) 07:57: Route: IVP, Drug Form: INJ, Dosing Weight 86.364, kg, PRN, PRN Blood Glucose Results, Start date: 04/09/21 2:57:00 CDT, Duration: 30 day, Stop date: 05/09/21 1:56:00 ROLLER HAND, 0 Glucagon 2020-06 No 1 mg, Memoria 0-17 Route: IM, l 07:57: Drug form: Ran 00 PDR/INJ, PRN, Dosing Weight 86.364, kg, PRN Blood Glucose Results, Start date: 04/09/21 2:57:00 CDT, Duration: 30 day, Stop date: 05/09/21 1:56:00 ROLLER HAND, 0 Bisacodyl 2020-06 No Notes: Memori a 0-17 (Same As: l 07:57: Dulcolax, Ran Bisco-Lax) Ondansetron 2020-06 No Notes: [place] timbo 0-17 (Same as: l 07:57: Zofran) MEDICATION WASTE Product Size: 4 mg Product Wasted: ___ mg Melatonin 2020-06 No Notes: Memori a 0-17 (Same as: l 07:57: Melatonin) Acetaminoph 2020-06 No Notes: Do M emoria en 0-17 not exceed l 07:57: 4 gm/day. (Same as: Tylenol) Dextrose 2020-06 No 12.5 gm, Memor ia 50% Syringe 0-17 25 mL, l (D50W) 07:57: Route: [place] 00 IVP, Drug Form: INJ, Dosing Weight 86.364, kg, PRN, PRN Blood Glucose Results, Start date: 04/09/21 2:57:00 CDT, Duration: 30 day, Stop date: 05/09/21 1:56:00 ROLLER HAND, 0 Glucagon 2020-06 No 1 mg, Memoria 0-17 Route: IM, l 07:57: Drug form: [place] 00 PDR/INJ, PRN, Dosing Weight 86.364, kg, PRN Blood Glucose Results, Start date: 04/09/21 2:57:00 CDT, Duration: 30 day, Stop date: 05/09/21 1:56:00 ROLLER HAND, 0 Bisacodyl 2020-06 No Notes: Memori a 0-17 (Same As: l 07:57: Dulcolax, [place]-Lax) Ondansetron 2020-06 No Notes: [place] timbo 0-17 (Same as: l 07:57: Zofran) MEDICATION WASTE Product Size: 4 mg Product Wasted: ___ mg Melatonin 2020-06 No Notes: Memori a 0-17 (Same as: l 07:57: Melatonin) Acetaminoph 2020-06 No Notes: Do M emoria en 0-17 not exceed l 07:57: 4 gm/day. (Same as: Tylenol) Dextrose 2020-06 No 12.5 gm, Memor ia 50% Syringe 0-17 25 mL, l (D50W) 07:57: Route: Ran 00 IVP, Drug Form: INJ, Dosing Weight 86.364, kg, PRN, PRN Blood Glucose Results, Start date: 04/09/21 2:57:00 CDT, Duration: 30 day, Stop date: 05/09/21 1:56:00 ROLLER HAND, 0 Glucagon 2020-06 No 1 mg, Memoria 0-17 Route: IM, l 07:57: Drug form: [place] 00 PDR/INJ, PRN, Dosing Weight 86.364, kg, PRN Blood Glucose Results, Start date: 04/09/21 2:57:00 CDT, Duration: 30 day, Stop date: 05/09/21 1:56:00 ROLLER HAND, 0 Bisacodyl 2020-06 No Notes: Memori a 0-17 (Same As: l 07:57: Dulcolax, Ran 00 Bisco-Lax) Ondansetron 2020-06 No Notes: [place] timbo 0-17 (Same as: l 07:57: Zofran) MEDICATION WASTE Product Size: 4 mg Product Wasted: ___ mg Melatonin 2020-06 No Notes: Memori a 0-17 (Same as: l 07:57: Melatonin) Acetaminoph 2020-06 No Notes: Do M emoria en 0-17 not exceed l 07:57: 4 gm/day. (Same as: Tylenol) Dextrose 2020-06 No 12.5 gm, Memor ia 50% Syringe 0-17 25 mL, l (D50W) 07:57: Route: Ran 00 IVP, Drug Form: INJ, Dosing Weight 86.364, kg, PRN, PRN Blood Glucose Results, Start date: 04/09/21 2:57:00 CDT, Duration: 30 day, Stop date: 05/09/21 1:56:00 ROLLER HAND, 0 Glucagon 2020-06 No 1 mg, Memoria 0-17 Route: IM, l 07:57: Drug form: [place] 00 PDR/INJ, PRN, Dosing Weight 86.364, kg, PRN Blood Glucose Results, Start date: 04/09/21 2:57:00 CDT, Duration: 30 day, Stop date: 05/09/21 1:56:00 ROLLER HAND, 0 Bisacodyl 2020-06 No Notes: Memori a 0-17 (Same As: l 07:57: Dulcolax, Ran 00 Bisco-Lax) Ondansetron 2020-06 No Notes: [place] timbo 0-17 (Same as: l 07:57: Zofran) MEDICATION WASTE Product Size: 4 mg Product Wasted: ___ mg Melatonin 2020-06 No Notes: Memori a 0-17 (Same as: l 07:57: Melatonin) Acetaminoph 2020-06 No Notes: Do M emoria en 0-17 not exceed l 07:57: 4 gm/day. (Same as: Tylenol) Dextrose 2020-06 No 12.5 gm, Memor ia 50% Syringe 0-17 25 mL, l (D50W) 07:57: Route: IVP, Drug Form: INJ, Dosing Weight 86.364, kg, PRN, PRN Blood Glucose Results, Start date: 04/09/21 2:57:00 CDT, Duration: 30 day, Stop date: 05/09/21 1:56:00 ROLLER HAND, 0 Glucagon 2020-06 No 1 mg, Memoria 0-17 Route: IM, l 07:57: Drug form: PDR/INJ, PRN, Dosing Weight 86.364, kg, PRN Blood Glucose Results, Start date: 04/09/21 2:57:00 CDT, Duration: 30 day, Stop date: 05/09/21 1:56:00 ROLLER HAND, 0 Bisacodyl 2020-06 No Notes: Memori a 0-17 (Same As: l 07:57: Dulcolax, [place]isco-Lax) Ondansetron 2020-06 No Notes: [place] timbo 0-17 (Same as: l 07:57: Zofran) MEDICATION WASTE Product Size: 4 mg Product Wasted: ___ mg Melatonin 2020-06 No Notes: Memori a 0-17 (Same as: l 07:57: Melatonin) Acetaminoph 2020-06 No Notes: Do M emoria en 0-17 not exceed l 07:57: 4 gm/day. (Same as: Tylenol) Dextrose 2020-06 No 12.5 gm, Memor ia 50% Syringe 0-17 25 mL, l (D50W) 07:57: Route: [place] 00 IVP, Drug Form: INJ, Dosing Weight 86.364, kg, PRN, PRN Blood Glucose Results, Start date: 04/09/21 2:57:00 CDT, Duration: 30 day, Stop date: 05/09/21 1:56:00 ROLLER HAND, 0 Glucagon 2020-06 No 1 mg, Memoria 0-17 Route: IM, l 07:57: Drug form: PDR/INJ, PRN, Dosing Weight 86.364, kg, PRN Blood Glucose Results, Start date: 04/09/21 2:57:00 CDT, Duration: 30 day, Stop date: 05/09/21 1:56:00 ROLLER HAND, 0 Bisacodyl 2020-06 No Notes: Memori a 0-17 (Same As: l 07:57: Dulcolax, Bisco-Lax) Ondansetron 2020-06 No Notes: [place] timbo 0-17 (Same as: l 07:57: Zofran) MEDICATION WASTE Product Size: 4 mg Product Wasted: ___ mg Melatonin 2020-06 No Notes: Memori a 0-17 (Same as: l 07:57: Melatonin) Acetaminoph 2020-06 No Notes: Do M emoria en 0-17 not exceed l 07:57: 4 gm/day. (Same as: Tylenol) Dextrose 2020-06 No 12.5 gm, Memor ia 50% Syringe 0-17 25 mL, l (D50W) 07:57: Route: IVP, Drug Form: INJ, Dosing Weight 86.364, kg, PRN, PRN Blood Glucose Results, Start date: 04/09/21 2:57:00 CDT, Duration: 30 day, Stop date: 05/09/21 1:56:00 ROLLER HAND, 0 Glucagon 2020-06 No 1 mg, Memoria 0-17 Route: IM, l 07:57: Drug form: PDR/INJ, PRN, Dosing Weight 86.364, kg, PRN Blood Glucose Results, Start date: 04/09/21 2:57:00 CDT, Duration: 30 day, Stop date: 05/09/21 1:56:00 ROLLER HAND, 0 Bisacodyl 2020-06 No Notes: Memori a 0-17 (Same As: l 07:57: Dulcolax, [place] 00 Bisco-Lax) Ondansetron 2020-06 No Notes: [place] timbo 0-17 (Same as: l 07:57: Zofran) MEDICATION WASTE Product Size: 4 mg Product Wasted: ___ mg Melatonin 2020-06 No Notes: Memori a 0-17 (Same as: l 07:57: Melatonin) Acetaminoph 2020-06 No Notes: Do M emoria en 0-17 not exceed l 07:57: 4 gm/day. (Same as: Tylenol) Dextrose 2020-06 No 12.5 gm, Memor ia 50% Syringe 0-17 25 mL, l (D50W) 07:57: Route: [place] 00 IVP, Drug Form: INJ, Dosing Weight 86.364, kg, PRN, PRN Blood Glucose Results, Start date: 04/09/21 2:57:00 CDT, Duration: 30 day, Stop date: 05/09/21 1:56:00 ROLLER HAND, 0 Glucagon 2020-06 No 1 mg, Memoria 0-17 Route: IM, l 07:57: Drug form: PDR/INJ, PRN, Dosing Weight 86.364, kg, PRN Blood Glucose Results, Start date: 04/09/21 2:57:00 CDT, Duration: 30 day, Stop date: 05/09/21 1:56:00 ROLLER HAND, 0 Bisacodyl 2020-06 No Notes: Memori a 0-17 (Same As: l 07:57: Dulcolax, [place] 00 Bisco-Lax) Ondansetron 2020-06 No Notes: [place] timbo 0-17 (Same as: l 07:57: Zofran) MEDICATION WASTE Product Size: 4 mg Product Wasted: ___ mg Melatonin 2020-06 No Notes: Memori a 0-17 (Same as: l 07:57: Melatonin) Acetaminoph 2020-06 No Notes: Do M emoria en 0-17 not exceed l 07:57: 4 gm/day. Ran 00 (Same as: Tylenol) Dextrose 2020-06 No 12.5 gm, Memor ia 50% Syringe 0-17 25 mL, l (D50W) 07:57: Route: [place] 00 IVP, Drug Form: INJ, Dosing Weight 86.364, kg, PRN, PRN Blood Glucose Results, Start date: 04/09/21 2:57:00 CDT, Duration: 30 day, Stop date: 05/09/21 1:56:00 ROLLER HAND, 0 Glucagon 2020-06 No 1 mg, Memoria 0-17 Route: IM, l 07:57: Drug form: [place] 00 PDR/INJ, PRN, Dosing Weight 86.364, kg, PRN Blood Glucose Results, Start date: 04/09/21 2:57:00 CDT, Duration: 30 day, Stop date: 05/09/21 1:56:00 ROLLER HAND, 0 Bisacodyl 2020-06 No Notes: Memori a 0-17 (Same As: l 07:57: Dulcolax, [place]isco-Lax) Ondansetron 2020-06 No Notes: [place] timbo 0-17 (Same as: l 07:57: Zofran) MEDICATION WASTE Product Size: 4 mg Product Wasted: ___ mg Melatonin 2020-06 No Notes: Memori a 0-17 (Same as: l 07:57: Melatonin) Acetaminoph 2020-06 No Notes: Do M emoria en 0-17 not exceed l 07:57: 4 gm/day. (Same as: Tylenol) Dextrose 2020-06 No 12.5 gm, Memor ia 50% Syringe 0-17 25 mL, l (D50W) 07:57: Route: [place] 00 IVP, Drug Form: INJ, Dosing Weight 86.364, kg, PRN, PRN Blood Glucose Results, Start date: 04/09/21 2:57:00 CDT, Duration: 30 day, Stop date: 05/09/21 1:56:00 ROLLER HAND, 0 Glucagon 2020-06 No 1 mg, Memoria 0-17 Route: IM, l 07:57: Drug form: [place] 00 PDR/INJ, PRN, Dosing Weight 86.364, kg, PRN Blood Glucose Results, Start date: 04/09/21 2:57:00 CDT, Duration: 30 day, Stop date: 05/09/21 1:56:00 ROLLER HAND, 0 Bisacodyl 2020-06 No Notes: Memori a 0-17 (Same As: l 07:57: Dulcolax, [place] 00 Bisco-Lax) Ondansetron 2020-06 No Notes: [place] timbo 0-17 (Same as: l 07:57: Zofran) MEDICATION WASTE Product Size: 4 mg Product Wasted: ___ mg Melatonin 2020-06 No Notes: Memori a 0-17 (Same as: l 07:57: Melatonin) Acetaminoph 2020-06 No Notes: Do M emoria en 0-17 not exceed l 07:57: 4 gm/day. (Same as: Tylenol) Dextrose 2020-06 No 12.5 gm, Memor ia 50% Syringe 0-17 25 mL, l (D50W) 07:57: Route: [place] 00 IVP, Drug Form: INJ, Dosing Weight 86.364, kg, PRN, PRN Blood Glucose Results, Start date: 04/09/21 2:57:00 CDT, Duration: 30 day, Stop date: 05/09/21 1:56:00 ROLLER HAND, 0 Glucagon 2020-06 No 1 mg, Memoria 0-17 Route: IM, l 07:57: Drug form: [place] 00 PDR/INJ, PRN, Dosing Weight 86.364, kg, PRN Blood Glucose Results, Start date: 04/09/21 2:57:00 CDT, Duration: 30 day, Stop date: 05/09/21 1:56:00 ROLLER HAND, 0 Bisacodyl 2020-06 No Notes: Memori a 0-17 (Same As: l 07:57: Dulcolax, Ran 00 Bisco-Lax) Ondansetron 2020-06 No Notes: [place] timbo 0-17 (Same as: l 07:57: Zofran) MEDICATION WASTE Product Size: 4 mg Product Wasted: ___ mg Melatonin 2020-06 No Notes: Memori a 0-17 (Same as: l 07:57: Melatonin) Acetaminoph 2020-06 No Notes: Do M emoria en 0-17 not exceed l 07:57: 4 gm/day. (Same as: Tylenol) FENTanyl PF 2020-06- No 50ug 50 mcg, Un urmila (SUBLIMAZE 0-17 10-17 Slow IV ity o f (PF)) 05:15: 04:14 [place], [place] injection 00 :00 ONCE, 1 Medical 50 mcg dose, [place] 04/09/21 at 0015, Routine ketorolac 2020-06- No 15mg 15 mg, Unive rs (TORADOL) 0-17 - Slow IV ity of injection 00:15: 23:09 [place], [place] 15 mg 00 :00 ONCE, 1 Medical dose, [place] 04/08/21 at 1915, Routine
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 BD Integra 2020-06 Yes USE ONE UT Syringe 25G 0-13 (1) Health X 1" 3 ML 00:00: SYRING[place] misc 00 DIRECTED. Ascorbic 2020-06 Yes 0 Memoria Acid 40 MG 0-05 Refill(s) l / Ferrous 18:49: [place] fumarate 00 191 MG / Folic Acid 1 MG / Niacinamide 3 MG / Polysacchar coco iron complex 136 MG Oral Capsule [Integra F] Ascorbic 2020-06 Yes 0 Memoria Acid 40 MG 0-05 Refill(s) l / Ferrous 18:49: Ran fumarate 00 191 MG / Folic Acid 1 MG / Niacinamide 3 MG / Polysacchar coco iron complex 136 MG Oral Capsule [Integra F] Ascorbic 2020-06 Yes 0 Memoria Acid 40 MG 0-05 Refill(s) l / Ferrous 18:49: [place] fumarate 00 191 MG / Folic Acid 1 MG / Niacinamide 3 MG / Polysacchar coco iron complex 136 MG Oral Capsule [Integra F] Ascorbic 2020-06 Yes 0 Memoria Acid 40 MG 0-05 Refill(s) l / Ferrous 18:49: Ran fumarate 00 191 MG / Folic Acid 1 MG / Niacinamide 3 MG / Polysacchar coco iron complex 136 MG Oral Capsule [Integra F] Ascorbic 2020-06 Yes 0 Memoria Acid 40 MG 0-05 Refill(s) l / Ferrous 18:49: [place] fumarate 00 191 MG / Folic Acid 1 MG / Niacinamide 3 MG / Polysacchar coco iron complex 136 MG Oral Capsule [Integra F] Ascorbic 2020-06 Yes 0 Memoria Acid 40 MG 0-05 Refill(s) l / Ferrous 18:49: [place] fumarate 00 191 MG / Folic Acid 1 MG / Niacinamide 3 MG / Polysacchar coco iron complex 136 MG Oral Capsule [Integra F] Ascorbic 2020-06 Yes 0 Memoria Acid 40 MG 0-05 Refill(s) l / Ferrous 18:49: Ran fumarate 00 191 MG / Folic Acid 1 MG / Niacinamide 3 MG / Polysacchar coco iron complex 136 MG Oral Capsule [Integra F] Ascorbic 2020-06 Yes 0 Memoria Acid 40 MG 0-05 Refill(s) l / Ferrous 18:49: Ran fumarate 00 191 MG / Folic Acid 1 MG / Niacinamide 3 MG / Polysacchar coco iron complex 136 MG Oral Capsule [Integra F] Ascorbic 2020-06 Yes 0 Memoria Acid 40 MG 0-05 Refill(s) l / Ferrous 18:49: [place] fumarate 00 191 MG / Folic Acid 1 MG / Niacinamide 3 MG / Polysacchar coco iron complex 136 MG Oral Capsule [Integra F] Ascorbic 2020-06 Yes 0 Memoria Acid 40 MG 0-05 Refill(s) l / Ferrous 18:49: Ran fumarate 00 191 MG / Folic Acid 1 MG / Niacinamide 3 MG / Polysacchar coco iron complex 136 MG Oral Capsule [Integra F] Ascorbic 2020-06 Yes 0 Memoria Acid 40 MG 0-05 Refill(s) l / Ferrous 18:49: [place] fumarate 00 191 MG / Folic Acid 1 MG / Niacinamide 3 MG / Polysacchar coco iron complex 136 MG Oral Capsule [Integra F] Ascorbic 2020-06 Yes 0 Memoria Acid 40 MG 0-05 Refill(s) l / Ferrous 18:49: Ran fumarate 00 191 MG / Folic Acid 1 MG / Niacinamide 3 MG / Polysacchar coco iron complex 136 MG Oral Capsule [Integra F] Ascorbic 2020-06 Yes 0 Memoria Acid 40 MG 0-05 Refill(s) l / Ferrous 18:49: Ran fumarate 00 191 MG / Folic Acid 1 MG / Niacinamide 3 MG / Polysacchar coco iron complex 136 MG Oral Capsule [Integra F] Ascorbic 2020-06 Yes 0 Memoria Acid 40 MG 0-05 Refill(s) l / Ferrous 18:49: Ran fumarate 00 191 MG / Folic Acid 1 MG / Niacinamide 3 MG / Polysacchar coco iron complex 136 MG Oral Capsule [Integra F] Ascorbic 2020-06 Yes 0 Memoria Acid 40 MG 0-05 Refill(s) l / Ferrous 18:49: [place] fumarate 00 191 MG / Folic Acid 1 MG / Niacinamide 3 MG / Polysacchar coco iron complex 136 MG Oral Capsule [Integra F] Ascorbic 2020-06 Yes 0 Memoria Acid 40 MG 0-05 Refill(s) l / Ferrous 18:49: Ran fumarate 00 191 MG / Folic Acid 1 MG / Niacinamide 3 MG / Polysacchar coco iron complex 136 MG Oral Capsule [Integra F] Ascorbic 2020-06 Yes 0 Memoria Acid 40 MG 0-05 Refill(s) l / Ferrous 18:49: [place] fumarate 00 191 MG / Folic Acid 1 MG / Niacinamide 3 MG / Polysacchar coco iron complex 136 MG Oral Capsule [Integra F] Ascorbic 2020-06 Yes 0 Memoria Acid 40 MG 0-05 Refill(s) l / Ferrous 18:49: [place] fumarate 00 191 MG / Folic Acid 1 MG / Niacinamide 3 MG / Polysacchar coco iron complex 136 MG Oral Capsule [Integra F] Ascorbic 2020-06 Yes 0 Memoria Acid 40 MG 0-05 Refill(s) l / Ferrous 18:49: Ran fumarate 00 191 MG / Folic Acid 1 MG / Niacinamide 3 MG / Polysacchar coco iron complex 136 MG Oral Capsule [Integra F] Ascorbic 2020-06 Yes 0 Memoria Acid 40 MG 0-05 Refill(s) l / Ferrous 18:49: Ran fumarate 00 191 MG / Folic Acid 1 MG / Niacinamide 3 MG / Polysacchar coco iron complex 136 MG Oral Capsule [Integra F] Ascorbic 2020-06 Yes 0 Memoria Acid 40 MG 0-05 Refill(s) l / Ferrous 18:49: Ran fumarate 00 191 MG / Folic Acid 1 MG / Niacinamide 3 MG / Polysacchar coco iron complex 136 MG Oral Capsule [Integra F] Ascorbic 2020-06 Yes 0 Memoria Acid 40 MG 0-05 Refill(s) l / Ferrous 18:49: [place] fumarate 00 191 MG / Folic Acid 1 MG / Niacinamide 3 MG / Polysacchar coco iron complex 136 MG Oral Capsule [Integra F] Ascorbic 2020-06 Yes 0 Memoria Acid 40 MG 0-05 Refill(s) l / Ferrous 18:49: Ran fumarate 00 191 MG / Folic Acid 1 MG / Niacinamide 3 MG / Polysacchar coco iron complex 136 MG Oral Capsule [Integra F] Ascorbic 2020-06 Yes 0 Memoria Acid 40 MG 0-05 Refill(s) l / Ferrous 18:49: Ran fumarate 00 191 MG / Folic Acid 1 MG / Niacinamide 3 MG / Polysacchar coco iron complex 136 MG Oral Capsule [Integra F] Ascorbic 2020-06 Yes 0 Memoria Acid 40 MG 0-05 Refill(s) l / Ferrous 18:49: Ran fumarate 00 191 MG / Folic Acid 1 MG / Niacinamide 3 MG / Polysacchar coco iron complex 136 MG Oral Capsule [Integra F] Ascorbic 2020-06 Yes 0 Memoria Acid 40 MG 0-05 Refill(s) l / Ferrous 18:49: [place] fumarate 00 191 MG / Folic Acid 1 MG / Niacinamide 3 MG / Polysacchar coco iron complex 136 MG Oral Capsule [Integra F] Ascorbic 2020-06 Yes 0 Memoria Acid 40 MG 0-05 Refill(s) l / Ferrous 18:49: [place] fumarate 00 191 MG / Folic Acid 1 MG / Niacinamide 3 MG / Polysacchar coco iron complex 136 MG Oral Capsule [Integra F] Ascorbic 2020-06 Yes 0 Memoria Acid 40 MG 0-05 Refill(s) l / Ferrous 18:49: [place] fumarate 00 191 MG / Folic Acid 1 MG / Niacinamide 3 MG / Polysacchar coco iron complex 136 MG Oral Capsule [Integra F] Ascorbic 2020-06 Yes 0 Memoria Acid 40 MG 0-05 Refill(s) l / Ferrous 18:49: [place] fumarate 00 191 MG / Folic Acid 1 MG / Niacinamide 3 MG / Polysacchar coco iron complex 136 MG Oral Capsule [Integra F] Ascorbic 2020-06 Yes 0 Memoria Acid 40 MG 0-05 Refill(s) l / Ferrous 18:49: Ran fumarate 00 191 MG / Folic Acid 1 MG / Niacinamide 3 MG / Polysacchar coco iron complex 136 MG Oral Capsule [Integra F] Ascorbic 2020-06 Yes 0 Memoria Acid 40 MG 0-05 Refill(s) l / Ferrous 18:49: [place] fumarate 00 191 MG / Folic Acid 1 MG / Niacinamide 3 MG / Polysacchar coco iron complex 136 MG Oral Capsule [Integra F] Ascorbic 2020-06 Yes 0 Memoria Acid 40 MG 0-05 Refill(s) l / Ferrous 18:49: [place] fumarate 00 191 MG / Folic Acid 1 MG / Niacinamide 3 MG / Polysacchar coco iron complex 136 MG Oral Capsule [Integra F] Ascorbic 2020-06 Yes 0 Memoria Acid 40 MG 0-05 Refill(s) l / Ferrous 18:49: Ran fumarate 00 191 MG / Folic Acid 1 MG / Niacinamide 3 MG / Polysacchar coco iron complex 136 MG Oral Capsule [Integra F] Ascorbic 2020-06 Yes 0 Memoria Acid 40 MG 0-05 Refill(s) l / Ferrous 18:49: [place] fumarate 00 191 MG / Folic Acid 1 MG / Niacinamide 3 MG / Polysacchar coco iron complex 136 MG Oral Capsule [Integra F] Ascorbic 2020-06 Yes 0 Memoria Acid 40 MG 0-05 Refill(s) l / Ferrous 18:49: [place] fumarate 00 191 MG / Folic Acid 1 MG / Niacinamide 3 MG / Polysacchar coco iron complex 136 MG Oral Capsule [Integra F] Ascorbic 2020-06 Yes 0 Memoria Acid 40 MG 0-05 Refill(s) l / Ferrous 18:49: [place] fumarate 00 191 MG / Folic Acid 1 MG / Niacinamide 3 MG / Polysacchar coco iron complex 136 MG Oral Capsule [Integra F] Ascorbic 2020-06 Yes 0 Memoria Acid 40 MG 0-05 Refill(s) l / Ferrous 18:49: [place] fumarate 00 191 MG / Folic Acid 1 MG / Niacinamide 3 MG / Polysacchar coco iron complex 136 MG Oral Capsule [Integra F] Ascorbic 2020-06 Yes 0 Memoria Acid 40 MG 0-05 Refill(s) l / Ferrous 18:49: [place] fumarate 00 191 MG / Folic Acid 1 MG / Niacinamide 3 MG / Polysacchar coco iron complex 136 MG Oral Capsule [Integra F] Ascorbic 2020-06 Yes 0 Memoria Acid 40 MG 0-05 Refill(s) l / Ferrous 18:49: [place] fumarate 00 191 MG / Folic Acid 1 MG / Niacinamide 3 MG / Polysacchar coco iron complex 136 MG Oral Capsule [Integra F] Ascorbic 2020-06 Yes 0 Memoria Acid 40 MG 0-05 Refill(s) l / Ferrous 18:49: [place] fumarate 00 191 MG / Folic Acid 1 MG / Niacinamide 3 MG / Polysacchar coco iron complex 136 MG Oral Capsule [Integra F] Ascorbic 2020-06 Yes 0 Memoria Acid 40 MG 0-05 Refill(s) l / Ferrous 18:49: [place] fumarate 00 191 MG / Folic Acid 1 MG / Niacinamide 3 MG / Polysacchar coco iron complex 136 MG Oral Capsule [Integra F] omeprazole 2020-0 Yes 40 mg = 1 Me moria 40 mg oral 8-23 cap, PO, l delayed 11:51: Daily, # [place] release 00 30 cap, 0 capsule Refill(s), Pharmacy: [facility], 170.18, cm, 02/10/21 7:54:00 CDT, Height, 84.091, kg, 02/10/21 7:54:00 CDT, Weight omeprazole 2020-0 Yes 40 mg = 1 Me moria 40 mg oral 8-23 cap, PO, l delayed 11:51: Daily, # [place] release 00 30 cap, 0 capsule Refill(s), Pharmacy: [facility], 170.18, cm, 02/10/21 7:54:00 CDT, Height, 84.091, kg, 02/10/21 7:54:00 CDT, Weight omeprazole 2020-0 Yes 40 mg = 1 Me moria 40 mg oral 8-23 cap, PO, l delayed 11:51: Daily, # [place] release 00 30 cap, 0 capsule Refill(s), Pharmacy: [facility], 170.18, cm, 02/10/21 7:54:00 CDT, Height, 84.091, kg, 02/10/21 7:54:00 CDT, Weight omeprazole 2021-0 Yes 40 mg = 1 Me moria 40 mg oral 8-23 cap, PO, l delayed 11:51: Daily, # [place] release 00 30 cap, 0 capsule Refill(s), Pharmacy: [facility], 170.18, cm, 02/10/21 7:54:00 CDT, Height, 84.091, kg, 02/10/21 7:54:00 CDT, Weight omeprazole 2021-0 Yes 40 mg = 1 Me moria 40 mg oral 8-23 cap, PO, l delayed 11:51: Daily, # [place] release 00 30 cap, 0 capsule Refill(s), Pharmacy: [facility], 170.18, cm, 02/10/21 7:54:00 CDT, Height, 84.091, kg, 02/10/21 7:54:00 CDT, Weight omeprazole 1-0 Yes 40 mg = 1 Me moria 40 mg oral 8-23 cap, PO, l delayed 11:51: Daily, # [place] release 00 30 cap, 0 capsule Refill(s), Pharmacy: [facility], 170.18, cm, 02/10/21 7:54:00 CDT, Height, 84.091, kg, 02/10/21 7:54:00 CDT, Weight omeprazole 1-0 Yes 40 mg = 1 Me moria 40 mg oral 8-23 cap, PO, l delayed 11:51: Daily, # [place] release 00 30 cap, 0 capsule Refill(s), Pharmacy: [facility], 170.18, cm, 02/10/21 7:54:00 CDT, Height, 84.091, kg, 02/10/21 7:54:00 CDT, Weight omeprazole 1-0 Yes 40 mg = 1 Me moria 40 mg oral 8-23 cap, PO, l delayed 11:51: Daily, # [place] release 00 30 cap, 0 capsule Refill(s), Pharmacy: [facility], 170.18, cm, 02/10/21 7:54:00 CDT, Height, 84.091, kg, 02/10/21 7:54:00 CDT, Weight omeprazole 2021-0 Yes 40 mg = 1 Me moria 40 mg oral 8-23 cap, PO, l delayed 11:51: Daily, # [place] release 00 30 cap, 0 capsule Refill(s), Pharmacy: [facility], 170.18, cm, 02/10/21 7:54:00 CDT, Height, 84.091, kg, 02/10/21 7:54:00 CDT, Weight omeprazole 2021-0 Yes 40 mg = 1 Me moria 40 mg oral 8-23 cap, PO, l delayed 11:51: Daily, # [place] release 00 30 cap, 0 capsule Refill(s), Pharmacy: [facility], 170.18, cm, 02/10/21 7:54:00 CDT, Height, 84.091, kg, 02/10/21 7:54:00 CDT, Weight omeprazole 2021-0 Yes 40 mg = 1 Me moria 40 mg oral 8-23 cap, PO, l delayed 11:51: Daily, # [place] release 00 30 cap, 0 capsule Refill(s), Pharmacy: [facility], 170.18, cm, 02/10/21 7:54:00 CDT, Height, 84.091, kg, 02/10/21 7:54:00 CDT, Weight omeprazole 2021-0 Yes 40 mg = 1 Me moria 40 mg oral 8-23 cap, PO, l delayed 11:51: Daily, # Fuad n release 00 30 cap, 0 capsule Refill(s), Pharmacy: [facility], 170.18, cm, 02/10/21 7:54:00 CDT, Height, 84.091, kg, 02/10/21 7:54:00 CDT, Weight omeprazole 2021-0 Yes 40 mg = 1 Me moria 40 mg oral 8-23 cap, PO, l delayed 11:51: Daily, # Fuad n release 00 30 cap, 0 capsule Refill(s), Pharmacy: [facility], 170.18, cm, 02/10/21 7:54:00 CDT, Height, 84.091, kg, 02/10/21 7:54:00 CDT, Weight omeprazole 2021-0 Yes 40 mg = 1 Me moria 40 mg oral 8-23 cap, PO, l delayed 11:51: Daily, # Fuad n release 00 30 cap, 0 capsule Refill(s), Pharmacy: [facility], 170.18, cm, 02/10/21 7:54:00 CDT, Height, 84.091, kg, 02/10/21 7:54:00 CDT, Weight omeprazole 2021-0 Yes 40 mg = 1 Me moria 40 mg oral 8-23 cap, PO, l delayed 11:51: Daily, # Fuad n release 00 30 cap, 0 capsule Refill(s), Pharmacy: [facility], 170.18, cm, 02/10/21 7:54:00 CDT, Height, 84.091, kg, 02/10/21 7:54:00 CDT, Weight omeprazole 2021-0 Yes 40 mg = 1 Me moria 40 mg oral 8-23 cap, PO, l delayed 11:51: Daily, # Fuad n release 00 30 cap, 0 capsule Refill(s), Pharmacy: [facility], 170.18, cm, 02/10/21 7:54:00 CDT, Height, 84.091, kg, 02/10/21 7:54:00 CDT, Weight omeprazole 2021-0 Yes 40 mg = 1 Me moria 40 mg oral 8-23 cap, PO, l delayed 11:51: Daily, # Fuad n release 00 30 cap, 0 capsule Refill(s), Pharmacy: [facility], 170.18, cm, 02/10/21 7:54:00 CDT, Height, 84.091, kg, 02/10/21 7:54:00 CDT, Weight omeprazole 2021-0 Yes 40 mg = 1 Me moria 40 mg oral 8-23 cap, PO, l delayed 11:51: Daily, # Fuad n release 00 30 cap, 0 capsule Refill(s), Pharmacy: [facility], 170.18, cm, 02/10/21 7:54:00 CDT, Height, 84.091, kg, 02/10/21 7:54:00 CDT, Weight omeprazole 2021-0 Yes 40 mg = 1 Me moria 40 mg oral 8-23 cap, PO, l delayed 11:51: Daily, # Fuad n release 00 30 cap, 0 capsule Refill(s), Pharmacy: [facility], 170.18, cm, 02/10/21 7:54:00 CDT, Height, 84.091, kg, 02/10/21 7:54:00 CDT, Weight omeprazole 2021-0 Yes 40 mg = 1 Me moria 40 mg oral 8-23 cap, PO, l delayed 11:51: Daily, # Fuad n release 00 30 cap, 0 capsule Refill(s), [facility] [facility], 170.18, cm, 02/10/21 7:54:00 CDT, Height, 84.091, kg, 02/10/21 7:54:00 CDT, Weight omeprazole 2021-0 Yes 40 mg = 1 Me moria 40 mg oral 8-23 cap, PO, l delayed 11:51: Daily, # Fuad n release 00 30 cap, 0 capsule Refill(s), Pharmacy: [facility], 170.18, cm, 02/10/21 7:54:00 CDT, Height, 84.091, kg, 02/10/21 7:54:00 CDT, Weight omeprazole 2021-0 Yes 40 mg = 1 Me moria 40 mg oral 8-23 cap, PO, l delayed 11:51: Daily, # Fuad n release 00 30 cap, 0 capsule Refill(s), Pharmacy: [facility], 170.18, cm, 02/10/21 7:54:00 CDT, Height, 84.091, kg, 02/10/21 7:54:00 CDT, Weight omeprazole 2021-0 Yes 40 mg = 1 Me moria 40 mg oral 8-23 cap, PO, l delayed 11:51: Daily, # Fuad n release 00 30 cap, 0 capsule Refill(s), Pharmacy: [facility], 170.18, cm, 02/10/21 7:54:00 CDT, Height, 84.091, kg, 02/10/21 7:54:00 CDT, Weight omeprazole 2021-0 Yes 40 mg = 1 Me moria 40 mg oral 8-23 cap, PO, l delayed 11:51: Daily, # Fuad n release 00 30 cap, 0 capsule Refill(s), Pharmacy: [facility], 170.18, cm, 02/10/21 7:54:00 CDT, Height, 84.091, kg, 02/10/21 7:54:00 CDT, Weight omeprazole 2021-0 Yes 40 mg = 1 Me moria 40 mg oral 8-23 cap, PO, l delayed 11:51: Daily, # Fuad n release 00 30 cap, 0 capsule Refill(s), Pharmacy: [facility], 170.18, cm, 02/10/21 7:54:00 CDT, Height, 84.091, kg, 02/10/21 7:54:00 CDT, Weight omeprazole 2021-0 Yes 40 mg = 1 Me moria 40 mg oral 8-23 cap, PO, l delayed 11:51: Daily, # Fuad n release 00 30 cap, 0 capsule Refill(s), Pharmacy: [facility], 170.18, cm, 02/10/21 7:54:00 CDT, Height, 84.091, kg, 02/10/21 7:54:00 CDT, Weight omeprazole 2021-0 Yes 40 mg = 1 Me moria 40 mg oral 8-23 cap, PO, l delayed 11:51: Daily, # Fuad n release 00 30 cap, 0 capsule Refill(s), Pharmacy: [facility], 170.18, cm, 02/10/21 7:54:00 CDT, Height, 84.091, kg, 02/10/21 7:54:00 CDT, Weight omeprazole 2021-0 Yes 40 mg = 1 Me moria 40 mg oral 8-23 cap, PO, l delayed 11:51: Daily, # Fuad n release 00 30 cap, 0 capsule Refill(s), Pharmacy: [facility], 170.18, cm, 02/10/21 7:54:00 CDT, Height, 84.091, kg, 02/10/21 7:54:00 CDT, Weight omeprazole 2021-0 Yes 40 mg = 1 Me moria 40 mg oral 8-23 cap, PO, l delayed 11:51: Daily, # Fuad n release 00 30 cap, 0 capsule Refill(s), Pharmacy: [facility], 170.18, cm, 02/10/21 7:54:00 CDT, Height, 84.091, kg, 02/10/21 7:54:00 CDT, Weight omeprazole 2021-0 Yes 40 mg = 1 Me moria 40 mg oral 8-23 cap, PO, l delayed 11:51: Daily, # Fuad n release 00 30 cap, 0 capsule Refill(s), Pharmacy: [facility], 170.18, cm, 02/10/21 7:54:00 CDT, Height, 84.091, kg, 02/10/21 7:54:00 CDT, Weight omeprazole 2021-0 Yes 40 mg = 1 Me moria 40 mg oral 8-23 cap, PO, l delayed 11:51: Daily, # Fuad n release 00 30 cap, 0 capsule Refill(s), Pharmacy: [facility], 170.18, cm, 02/10/21 7:54:00 CDT, Height, 84.091, kg, 02/10/21 7:54:00 CDT, Weight omeprazole 2021-0 Yes 40 mg = 1 Me moria 40 mg oral 8-23 cap, PO, l delayed 11:51: Daily, # Fuad n release 00 30 cap, 0 capsule Refill(s), Pharmacy: [facility], 170.18, cm, 02/10/21 7:54:00 CDT, Height, 84.091, kg, 02/10/21 7:54:00 CDT, Weight omeprazole 2021-0 Yes 40 mg = 1 Me moria 40 mg oral 8-23 cap, PO, l delayed 11:51: Daily, # Fuad n release 00 30 cap, 0 capsule Refill(s), Pharmacy: [facility], 170.18, cm, 02/10/21 7:54:00 CDT, Height, 84.091, kg, 02/10/21 7:54:00 CDT, Weight omeprazole 2021-0 Yes 40 mg = 1 Me moria 40 mg oral 8-23 cap, PO, l delayed 11:51: Daily, # Fuad n release 00 30 cap, 0 capsule Refill(s), Pharmacy: [facility], 170.18, cm, 02/10/21 7:54:00 CDT, Height, 84.091, kg, 02/10/21 7:54:00 CDT, Weight omeprazole 2021-0 Yes 40 mg = 1 Me moria 40 mg oral 8-23 cap, PO, l delayed 11:51: Daily, # Fuad n release 00 30 cap, 0 capsule Refill(s), Pharmacy: [facility], 170.18, cm, 02/10/21 7:54:00 CDT, Height, 84.091, kg, 02/10/21 7:54:00 CDT, Weight omeprazole 2021-0 Yes 40 mg = 1 Me moria 40 mg oral 8-23 cap, PO, l delayed 11:51: Daily, # Fuad n release 00 30 cap, 0 capsule Refill(s), Pharmacy: [facility], 170.18, cm, 02/10/21 7:54:00 CDT, Height, 84.091, kg, 02/10/21 7:54:00 CDT, Weight omeprazole 2021-0 Yes 40 mg = 1 Me moria 40 mg oral 8-23 cap, PO, l delayed 11:51: Daily, # Fuad n release 00 30 cap, 0 capsule Refill(s), Pharmacy: [facility], 170.18, cm, 02/10/21 7:54:00 CDT, Height, 84.091, kg, 02/10/21 7:54:00 CDT, Weight omeprazole 2021-0 Yes 40 mg = 1 Me moria 40 mg oral 8-23 cap, PO, l delayed 11:51: Daily, # Fuad n release 00 30 cap, 0 capsule Refill(s), Pharmacy: [facility], 170.18, cm, 02/10/21 7:54:00 CDT, Height, 84.091, kg, 02/10/21 7:54:00 CDT, Weight omeprazole 2021-0 Yes 40 mg = 1 Me moria 40 mg oral 8-23 cap, PO, l delayed 11:51: Daily, # Fuad n release 00 30 cap, 0 capsule Refill(s), Pharmacy: [facility], 170.18, cm, 02/10/21 7:54:00 CDT, Height, 84.091, kg, 02/10/21 7:54:00 CDT, Weight omeprazole Yes 40 mg = 1 Me moria 40 mg oral 8-23 cap, PO, l delayed 11:51: Daily, # Fuad n release 00 30 cap, 0 capsule Refill(s), Pharmacy: [facility], 170.18, cm, 02/10/21 7:54:00 CDT, Height, 84.091, kg, 02/10/21 7:54:00 CDT, Weight omeprazole Yes 40 mg = 1 Me moria 40 mg oral 8-23 cap, PO, l delayed 11:51: Daily, # Fuad n release 00 30 cap, 0 capsule Refill(s), Pharmacy: [facility], 170.18, cm, 02/10/21 7:54:00 CDT, Height, 84.091, kg, 02/10/21 7:54:00 CDT, Weight brinzolamid No 1 drp, [place] 10 MG/ML 8-20 Route: l Ophthalmic 22:00: BOTH EYES, H ermann Suspension 00 TID, Drug [Azopt] form: SUSP, Start date: 02/10/21 17:00:00 CDT, Duration: 30 day, Stop date: 03/12/21 13:00:00 CDT oxybutynin No Notes: [facility] extended 8-20 (Same as: l release 22:00: Ditropan Fuad n 00 XL) "Do Not Crush" brinzolamid No 1 drp, [place] 10 MG/ML 8-20 Route: l Ophthalmic 22:00: BOTH EYES, H ermann Suspension 00 TID, Drug [Azopt] form: SUSP, Start date: 02/10/21 17:00:00 CDT, Duration: 30 day, Stop date: 03/12/21 13:00:00 CDT oxybutynin No Notes: [facility] extended 8-20 (Same as: l release 22:00: Ditropan Fuad n 00 XL) "Do Not Crush" brinzolamid No 1 drp, [place] 10 MG/ML 8-20 Route: l Ophthalmic 22:00: BOTH EYES, H ermann Suspension 00 TID, Drug [Azopt] form: SUSP, Start date: 02/10/21 17:00:00 CDT, Duration: 30 day, Stop date: 03/12/21 13:00:00 CDT oxybutynin No Notes: [facility] extended 8-20 (Same as: l release 22:00: Ditropan Fuad n 00 XL) "Do Not Crush" brinzolamid No 1 drp, [place] 10 MG/ML 8-20 Route: l Ophthalmic 22:00: BOTH EYES, H ermann Suspension 00 TID, Drug [Azopt] form: SUSP, Start date: 02/10/21 17:00:00 CDT, Duration: 30 day, Stop date: 03/12/21 13:00:00 CDT oxybutynin No Notes: [facility] extended 8-20 (Same as: l release 22:00: Ditropan Fuad n 00 XL) "Do Not Crush" brinzolamid No 1 drp, [place] 10 MG/ML 8-20 Route: l Ophthalmic 22:00: BOTH EYES, H ermann Suspension 00 TID, Drug [Azopt] form: SUSP, Start date: 02/10/21 17:00:00 CDT, Duration: 30 day, Stop date: 03/12/21 13:00:00 CDT oxybutynin 0 No Notes: [facility] extended 8-20 (Same as: l release 22:00: Ditropan Fuad n 00 XL) "Do Not Crush" brinzolamid No 1 drp, [place] 10 MG/ML 8-20 Route: l Ophthalmic 22:00: BOTH EYES, H ermann Suspension 00 TID, Drug [Azopt] form: SUSP, Start date: 02/10/21 17:00:00 CDT, Duration: 30 day, Stop date: 03/12/21 13:00:00 CDT oxybutynin No Notes: [facility] extended 8-20 (Same as: l release 22:00: Ditropan Fuad n 00 XL) "Do Not Crush" brinzolamid No 1 drp, [place] 10 MG/ML 8-20 Route: l Ophthalmic 22:00: BOTH EYES, H ermann Suspension 00 TID, Drug [Azopt] form: SUSP, Start date: 02/10/21 17:00:00 CDT, Duration: 30 day, Stop date: 03/12/21 13:00:00 CDT oxybutynin No Notes: [facility] extended 8-20 (Same as: l release 22:00: Ditropan Fuad n 00 XL) "Do Not Crush" brinzolamid No 1 drp, [place] 10 MG/ML 8-20 Route: l Ophthalmic 22:00: BOTH EYES, H ermann Suspension 00 TID, Drug [Azopt] form: SUSP, Start date: 02/10/21 17:00:00 CDT, Duration: 30 day, Stop date: 03/12/21 13:00:00 CDT oxybutynin No Notes: [facility] extended 8-20 (Same as: l release 22:00: Ditropan Fuad n 00 XL) "Do Not Crush" brinzolamid No 1 drp, [place] 10 MG/ML 8-20 Route: l Ophthalmic 22:00: BOTH EYES, H ermann Suspension 00 TID, Drug [Azopt] form: SUSP, Start date: 02/10/21 17:00:00 CDT, Duration: 30 day, Stop date: 03/12/21 13:00:00 CDT oxybutynin No Notes: [facility] extended 8-20 (Same as: l release 22:00: Ditropan Fuad n 00 XL) "Do Not Crush" brinzolamid No 1 drp, [place] 10 MG/ML 8-20 Route: l Ophthalmic 22:00: BOTH EYES, H ermann Suspension 00 TID, Drug [Azopt] form: SUSP, Start date: 02/10/21 17:00:00 CDT, Duration: 30 day, Stop date: 03/12/21 13:00:00 CDT oxybutynin No Notes: [facility] extended 8-20 (Same as: l release 22:00: Ditropan Fuad n 00 XL) "Do Not Crush" brinzolamid No 1 drp, [place] 10 MG/ML 8-20 Route: l Ophthalmic 22:00: BOTH EYES, H ermann Suspension 00 TID, Drug [Azopt] form: SUSP, Start date: 02/10/21 17:00:00 CDT, Duration: 30 day, Stop date: 03/12/21 13:00:00 CDT oxybutynin No Notes: [facility] extended 8-20 (Same as: l release 22:00: Ditropan Fuad n 00 XL) "Do Not Crush" brinzolamid No 1 drp, [place] 10 MG/ML 8-20 Route: l Ophthalmic 22:00: BOTH EYES, H ermann Suspension 00 TID, Drug [Azopt] form: SUSP, Start date: 02/10/21 17:00:00 CDT, Duration: 30 day, Stop date: 03/12/21 13:00:00 CDT oxybutynin No Notes: [facility] extended 8-20 (Same as: l release 22:00: Ditropan Fuad n 00 XL) "Do Not Crush" brinzolamid No 1 drp, [place] 10 MG/ML 8-20 Route: l Ophthalmic 22:00: BOTH EYES, H ermann Suspension 00 TID, Drug [Azopt] form: SUSP, Start date: 02/10/21 17:00:00 CDT, Duration: 30 day, Stop date: 03/12/21 13:00:00 CDT oxybutynin No Notes: [facility] extended 8-20 (Same as: l release 22:00: Ditropan Fuad n 00 XL) "Do Not Crush" brinzolamid No 1 drp, [place] 10 MG/ML 8-20 Route: l Ophthalmic 22:00: BOTH EYES, H ermann Suspension 00 TID, Drug [Azopt] form: SUSP, Start date: 02/10/21 17:00:00 CDT, Duration: 30 day, Stop date: 03/12/21 13:00:00 CDT oxybutynin No Notes: [facility] extended 8-20 (Same as: l release 22:00: Ditropan Fuad n 00 XL) "Do Not Crush" brinzolamid No 1 drp, [place] 10 MG/ML 8-20 Route: l Ophthalmic 22:00: BOTH EYES, H ermann Suspension 00 TID, Drug [Azopt] form: SUSP, Start date: 02/10/21 17:00:00 CDT, Duration: 30 day, Stop date: 03/12/21 13:00:00 CDT oxybutynin No Notes: [facility] extended 8-20 (Same as: l release 22:00: Ditropan Fuad n 00 XL) "Do Not Crush" brinzolamid No 1 drp, [place] 10 MG/ML 8-20 Route: l Ophthalmic 22:00: BOTH EYES, H ermann Suspension 00 TID, Drug [Azopt] form: SUSP, Start date: 02/10/21 17:00:00 CDT, Duration: 30 day, Stop date: 03/12/21 13:00:00 CDT oxybutynin No Notes: [facility] extended 8-20 (Same as: l release 22:00: Ditropan Fuad n 00 XL) "Do Not Crush" brinzolamid No 1 drp, [place] 10 MG/ML 8-20 Route: l Ophthalmic 22:00: BOTH EYES, H ermann Suspension 00 TID, Drug [Azopt] form: SUSP, Start date: 02/10/21 17:00:00 CDT, Duration: 30 day, Stop date: 03/12/21 13:00:00 CDT oxybutynin No Notes: [facility] extended 8-20 (Same as: l release 22:00: Ditropan Fuad n 00 XL) "Do Not Crush" brinzolamid No 1 drp, [place] 10 MG/ML 8-20 Route: l Ophthalmic 22:00: BOTH EYES, H ermann Suspension 00 TID, Drug [Azopt] form: SUSP, Start date: 02/10/21 17:00:00 CDT, Duration: 30 day, Stop date: 03/12/21 13:00:00 CDT oxybutynin No Notes: [facility] extended 8-20 (Same as: l release 22:00: Ditropan Fuad n 00 XL) "Do Not Crush" brinzolamid No 1 drp, [place] 10 MG/ML 8-20 Route: l Ophthalmic 22:00: BOTH EYES, H ermann Suspension 00 TID, Drug [Azopt] form: SUSP, Start date: 02/10/21 17:00:00 CDT, Duration: 30 day, Stop date: 03/12/21 13:00:00 CDT oxybutynin No Notes: [facility] extended 8-20 (Same as: l release 22:00: Ditropan Fuad n 00 XL) "Do Not Crush" brinzolamid No 1 drp, [place] 10 MG/ML 8-20 Route: l Ophthalmic 22:00: BOTH EYES, H ermann Suspension 00 TID, Drug [Azopt] form: SUSP, Start date: 02/10/21 17:00:00 CDT, Duration: 30 day, Stop date: 03/12/21 13:00:00 CDT oxybutynin 0 No Notes: [facility] extended 8-20 (Same as: l release 22:00: Ditropan Fuad n 00 XL) "Do Not Crush" brinzolamid No 1 drp, [place] 10 MG/ML 8-20 Route: l Ophthalmic 22:00: BOTH EYES, H ermann Suspension 00 TID, Drug [Azopt] form: SUSP, Start date: 02/10/21 17:00:00 CDT, Duration: 30 day, Stop date: 03/12/21 13:00:00 CDT oxybutynin No Notes: [facility] extended 8-20 (Same as: l release 22:00: Ditropan Fuad n 00 XL) "Do Not Crush" brinzolamid No 1 drp, [place] 10 MG/ML 8-20 Route: l Ophthalmic 22:00: BOTH EYES, H ermann Suspension 00 TID, Drug [Azopt] form: SUSP, Start date: 02/10/21 17:00:00 CDT, Duration: 30 day, Stop date: 03/12/21 13:00:00 CDT oxybutynin No Notes: [facility] extended 8-20 (Same as: l release 22:00: Ditropan Fuad n 00 XL) "Do Not Crush" brinzolamid No 1 drp, [place] 10 MG/ML 8-20 Route: l Ophthalmic 22:00: BOTH EYES, H ermann Suspension 00 TID, Drug [Azopt] form: SUSP, Start date: 02/10/21 17:00:00 CDT, Duration: 30 day, Stop date: 03/12/21 13:00:00 CDT oxybutynin No Notes: [facility] extended 8-20 (Same as: l release 22:00: Ditropan Fuad n 00 XL) "Do Not Crush" brinzolamid No 1 drp, [place] 10 MG/ML 8-20 Route: l Ophthalmic 22:00: BOTH EYES, H ermann Suspension 00 TID, Drug [Azopt] form: SUSP, Start date: 02/10/21 17:00:00 CDT, Duration: 30 day, Stop date: 03/12/21 13:00:00 CDT oxybutynin No Notes: [facility] extended 8-20 (Same as: l release 22:00: Ditropan Fuad n 00 XL) "Do Not Crush" brinzolamid No 1 drp, [place] 10 MG/ML 8-20 Route: l Ophthalmic 22:00: BOTH EYES, H ermann Suspension 00 TID, Drug [Azopt] form: SUSP, Start date: 02/10/21 17:00:00 CDT, Duration: 30 day, Stop date: 03/12/21 13:00:00 CDT oxybutynin No Notes: [facility] extended 8-20 (Same as: l release 22:00: Ditropan Fuad n 00 XL) "Do Not Crush" brinzolamid No 1 drp, [place] 10 MG/ML 8-20 Route: l Ophthalmic 22:00: BOTH EYES, H ermann Suspension 00 TID, Drug [Azopt] form: SUSP, Start date: 02/10/21 17:00:00 CDT, Duration: 30 day, Stop date: 03/12/21 13:00:00 CDT oxybutynin No Notes: [facility] extended 8-20 (Same as: l release 22:00: Ditropan Fuad n 00 XL) "Do Not Crush" brinzolamid No 1 drp, [place] 10 MG/ML 8-20 Route: l Ophthalmic 22:00: BOTH EYES, H ermann Suspension 00 TID, Drug [Azopt] form: SUSP, Start date: 02/10/21 17:00:00 CDT, Duration: 30 day, Stop date: 03/12/21 13:00:00 CDT oxybutynin No Notes: [facility] extended 8-20 (Same as: l release 22:00: Ditropan Fuad n 00 XL) "Do Not Crush" brinzolamid No 1 drp, [place] 10 MG/ML 8-20 Route: l Ophthalmic 22:00: BOTH EYES, H ermann Suspension 00 TID, Drug [Azopt] form: SUSP, Start date: 02/10/21 17:00:00 CDT, Duration: 30 day, Stop date: 03/12/21 13:00:00 CDT oxybutynin No Notes: [facility] extended 8-20 (Same as: l release 22:00: Ditropan Fuad n 00 XL) "Do Not Crush" brinzolamid No 1 drp, [place] 10 MG/ML 8-20 Route: l Ophthalmic 22:00: BOTH EYES, H ermann Suspension 00 TID, Drug [Azopt] form: SUSP, Start date: 02/10/21 17:00:00 CDT, Duration: 30 day, Stop date: 03/12/21 13:00:00 CDT oxybutynin No Notes: [facility] extended 8-20 (Same as: l release 22:00: Ditropan Fuad n 00 XL) "Do Not Crush" brinzolamid No 1 drp, [place] 10 MG/ML 8-20 Route: l Ophthalmic 22:00: BOTH EYES, H ermann Suspension 00 TID, Drug [Azopt] form: SUSP, Start date: 02/10/21 17:00:00 CDT, Duration: 30 day, Stop date: 03/12/21 13:00:00 CDT oxybutynin No Notes: [facility] extended 8-20 (Same as: l release 22:00: Ditropan Fuad n 00 XL) "Do Not Crush" brinzolamid No 1 drp, [place] 10 MG/ML 8-20 Route: l Ophthalmic 22:00: BOTH EYES, H ermann Suspension 00 TID, Drug [Azopt] form: SUSP, Start date: 02/10/21 17:00:00 CDT, Duration: 30 day, Stop date: 03/12/21 13:00:00 CDT oxybutynin No Notes: [facility] extended 8-20 (Same as: l release 22:00: Ditropan Fuad n 00 XL) "Do Not Crush" brinzolamid No 1 drp, [place] 10 MG/ML 8-20 Route: l Ophthalmic 22:00: BOTH EYES, H ermann Suspension 00 TID, Drug [Azopt] form: SUSP, Start date: 02/10/21 17:00:00 CDT, Duration: 30 day, Stop date: 03/12/21 13:00:00 CDT oxybutynin No Notes: [facility] extended 8-20 (Same as: l release 22:00: Ditropan Fuad n 00 XL) "Do Not Crush" brinzolamid No 1 drp, [place] 10 MG/ML 8-20 Route: l Ophthalmic 22:00: BOTH EYES, H ermann Suspension 00 TID, Drug [Azopt] form: SUSP, Start date: 02/10/21 17:00:00 CDT, Duration: 30 day, Stop date: 03/12/21 13:00:00 CDT oxybutynin No Notes: [facility] extended 8-20 (Same as: l release 22:00: Ditropan Fuad n 00 XL) "Do Not Crush" brinzolamid No 1 drp, [place] 10 MG/ML 8-20 Route: l Ophthalmic 22:00: BOTH EYES, H ermann Suspension 00 TID, Drug [Azopt] form: SUSP, Start date: 02/10/21 17:00:00 CDT, Duration: 30 day, Stop date: 03/12/21 13:00:00 CDT oxybutynin No Notes: [facility] extended 8-20 (Same as: l release 22:00: Ditropan Fuad n 00 XL) "Do Not Crush" brinzolamid No 1 drp, [place] 10 MG/ML 8-20 Route: l Ophthalmic 22:00: BOTH EYES, H ermann Suspension 00 TID, Drug [Azopt] form: SUSP, Start date: 02/10/21 17:00:00 CDT, Duration: 30 day, Stop date: 03/12/21 13:00:00 CDT oxybutynin No Notes: [facility] extended 8-20 (Same as: l release 22:00: Ditropan Fuad n 00 XL) "Do Not Crush" brinzolamid No 1 drp, [place] 10 MG/ML 8-20 Route: l Ophthalmic 22:00: BOTH EYES, H ermann Suspension 00 TID, Drug [Azopt] form: SUSP, Start date: 02/10/21 17:00:00 CDT, Duration: 30 day, Stop date: 03/12/21 13:00:00 CDT oxybutynin No Notes: [facility] extended 8-20 (Same as: l release 22:00: Ditropan Fuad n 00 XL) "Do Not Crush" brinzolamid No 1 drp, [place] 10 MG/ML 8-20 Route: l Ophthalmic 22:00: BOTH EYES, H ermann Suspension 00 TID, Drug [Azopt] form: SUSP, Start date: 02/10/21 17:00:00 CDT, Duration: 30 day, Stop date: 03/12/21 13:00:00 CDT oxybutynin No Notes: [facility] extended 8-20 (Same as: l release 22:00: Ditropan Fuad n 00 XL) "Do Not Crush" brinzolamid No 1 drp, [place] 10 MG/ML 8-20 Route: l Ophthalmic 22:00: BOTH EYES, H ermann Suspension 00 TID, Drug [Azopt] form: SUSP, Start date: 02/10/21 17:00:00 CDT, Duration: 30 day, Stop date: 03/12/21 13:00:00 CDT oxybutynin No Notes: [facility] extended 8-20 (Same as: l release 22:00: Ditropan Fuad n 00 XL) "Do Not Crush" brinzolamid No 1 drp, [place] 10 MG/ML 8-20 Route: l Ophthalmic 22:00: BOTH EYES, H ermann Suspension 00 TID, Drug [Azopt] form: SUSP, Start date: 02/10/21 17:00:00 CDT, Duration: 30 day, Stop date: 03/12/21 13:00:00 CDT oxybutynin No Notes: [facility] extended 8-20 (Same as: l release 22:00: Ditropan Fuad n 00 XL) "Do Not Crush" brinzolamid No 1 drp, [place] 10 MG/ML 8-20 Route: l Ophthalmic 22:00: BOTH EYES, H ermann Suspension 00 TID, Drug [Azopt] form: SUSP, Start date: 02/10/21 17:00:00 CDT, Duration: 30 day, Stop date: 03/12/21 13:00:00 CDT oxybutynin No Notes: [facility] extended 8-20 (Same as: l release 22:00: Ditropan Fuad n 00 XL) "Do Not Crush" brinzolamid No 1 drp, [place] 10 MG/ML 8-20 Route: l Ophthalmic 22:00: BOTH EYES, H ermann Suspension 00 TID, Drug [Azopt] form: SUSP, Start date: 02/10/21 17:00:00 CDT, Duration: 30 day, Stop date: 03/12/21 13:00:00 CDT oxybutynin No Notes: [facility] extended 8-20 (Same as: l release 22:00: Ditropan Fuad n 00 XL) "Do Not Crush" Trusopt No Notes: [facility] 8-20 Same as: l 20:00: Trusopt [place] 00 Trusopt No Notes: [facility] 8-20 Same as: l 20:00: Trusopt Ran 00 Trusopt No Notes: [facility] 8-20 Same as: l 20:00: Trusopt [place] 00 Trusopt No Notes: [facility] 8-20 Same as: l 20:00: Trusopt [place] 00 Trusopt No Notes: [facility] 8-20 Same as: l 20:00: Trusopt [place] 00 Trusopt No Notes: [facility] 8-20 Same as: l 20:00: Trusopt [place] 00 Trusopt No Notes: [facility] 8-20 Same as: l 20:00: Trusopt [place] 00 Trusopt No Notes: [facility] 8-20 Same as: l 20:00: Trusopt [place] 00 Trusopt No Notes: [facility] 8-20 Same as: l 20:00: Trusopt [place] 00 Trusopt No Notes: [facility] 8-20 Same as: l 20:00: Trusopt [place] 00 Trusopt No Notes: [facility] 8-20 Same as: l 20:00: Trusopt [place] 00 Trusopt 0 No Notes: [facility] 8-20 Same as: l 20:00: Trusopt [place] 00 Trusopt 0 No Notes: [facility] 8-20 Same as: l 20:00: Trusopt [place] 00 Trusopt 0 No Notes: [facility] 8-20 Same as: l 20:00: Trusopt [place] 00 Trusopt 0 No Notes: [facility] 8-20 Same as: l 20:00: Trusopt [place] 00 Trusopt 0 No Notes: [facility] 8-20 Same as: l 20:00: Trusopt [place] 00 Trusopt No Notes: [facility] 8-20 Same as: l 20:00: Trusopt [place] 00 Trusopt No Notes: [facility] 8-20 Same as: l 20:00: Trusopt [place] 00 Trusopt No Notes: [facility] 8-20 Same as: l 20:00: Trusopt [place] 00 Trusopt No Notes: [facility] 8-20 Same as: l 20:00: Trusopt [place] 00 Trusopt No Notes: [facility] 8-20 Same as: l 20:00: Trusopt [place] 00 Trusopt No Notes: [facility]oria 8-20 Same as: l 20:00: Tr[facility] [place] 00 Trusopt 0 No Notes: [facility]oria 8-20 Same as: l 20:00: Trus[facility] [place] 00 Trusopt 0 No Notes: Memoria 8-20 Same as: l 20:00: Trus[facility] [place] 00 Trusopt 0 No Notes: [facility]oria 8-20 Same as: l 20:00: Trus[facility] [place] 00 Trusopt 0 No Notes: [facility]oria 8-20 Same as: l 20:00: Trus[facility] [place] 00 Trusopt 0 No Notes: [facility]oria 8-20 Same as: l 20:00: Trusopt [place] 00 Trusopt 2020-0 No Notes: [facility]oria 8-20 Same as: l 20:00: Trus[facility] [place] 00 Trusopt 2020-0 No Notes: [facility]oria 8-20 Same as: l 20:00: Trus[facility] [place] 00 Trusopt 0 No Notes: [facility]oria 8-20 Same as: l 20:00: Trus[facility] [place] Trusopt No Notes: Memoria 8-20 Same as: l 20:00: Trusopt [place] 00 Trusopt No Notes: [facility]oria 8-20 Same as: l 20:00: Trus[facility] [place] 00 Trusopt No Notes: [facility]oria 8-20 Same as: l 20:00: Trus[facility] [place] Trusopt No Notes: Memoria 8-20 Same as: l 20:00: Trusopt [place] 00 Trusopt No Notes: [facility]oria 8-20 Same as: l 20:00: Trus[facility] [place] Trusopt No Notes: Memoria 8-20 Same as: l 20:00: Trus[facility] [place] Trusopt No Notes: [facility]oria 8-20 Same as: l 20:00: Trusopt [place] Trusopt No Notes: [facility]oria 8-20 Same as: l 20:00: Trus[facility] [place] Trusopt No Notes: Memoria 8-20 Same as: l 20:00: Trus[facility] [place] Trusopt No Notes: [facility]oria 8-20 Same as: l 20:00: Trus[facility] [place] Trusopt No Notes: [facility]oria 8-20 Same as: l 20:00: Tr[facility] [place] 00 Sodium No 1,000 mL, Memori a Chloride 8-20 Rate: 75 l 0.9% IV 14:37: ml/hr, [place] 1,000 mL 00 Infuse over: 13.3 hr, Route: IV, Dosing Weight 84.091 kg, Total Volume: 1,000, Start date: 02/10/21 9:37:00 CDT, Duration: 30 day, Stop date: 03/12/21 9:36:00 CDT, BSA: 2.01 m2, 0 Sodium No 1,000 mL, Memori a Chloride 8-20 Rate: 75 l 0.9% IV 14:37: ml/hr, Ran 1,000 mL 00 Infuse over: 13.3 hr, Route: IV, Dosing Weight 84.091 kg, Total Volume: 1,000, Start date: 02/10/21 9:37:00 CDT, Duration: 30 day, Stop date: 03/12/21 9:36:00 CDT, BSA: 2.01 m2, 0 Sodium 2021-0 No 1,000 mL, Memori a Chloride 8-20 Rate: 75 l 0.9% IV 14:37: ml/hr, Ran 1,000 mL 00 Infuse over: 13.3 hr, Route: IV, Dosing Weight 84.091 kg, Total Volume: 1,000, Start date: 02/10/21 9:37:00 CDT, Duration: 30 day, Stop date: 03/12/21 9:36:00 CDT, BSA: 2.01 m2, 0 Sodium 2021-0 No 1,000 mL, Memori a Chloride 8-20 Rate: 75 l 0.9% IV 14:37: ml/hr, [place] 1,000 mL 00 Infuse over: 13.3 hr, Route: IV, Dosing Weight 84.091 kg, Total Volume: 1,000, Start date: 02/10/21 9:37:00 CDT, Duration: 30 day, Stop date: 03/12/21 9:36:00 CDT, BSA: 2.01 m2, 0 Sodium 2021-0 No 1,000 mL, Memori a Chloride 8-20 Rate: 75 l 0.9% IV 14:37: ml/hr, Ran 1,000 mL 00 Infuse over: 13.3 hr, Route: IV, Dosing Weight 84.091 kg, Total Volume: 1,000, Start date: 02/10/21 9:37:00 CDT, Duration: 30 day, Stop date: 03/12/21 9:36:00 CDT, BSA: 2.01 m2, 0 Sodium 2021-0 No 1,000 mL, Memori a Chloride 8-20 Rate: 75 l 0.9% IV 14:37: ml/hr, Ran 1,000 mL 00 Infuse over: 13.3 hr, Route: IV, Dosing Weight 84.091 kg, Total Volume: 1,000, Start date: 02/10/21 9:37:00 CDT, Duration: 30 day, Stop date: 03/12/21 9:36:00 CDT, BSA: 2.01 m2, 0 Sodium 2021-0 No 1,000 mL, Memori a Chloride 8-20 Rate: 75 l 0.9% IV 14:37: ml/hr, Ran 1,000 mL 00 Infuse over: 13.3 hr, Route: IV, Dosing Weight 84.091 kg, Total Volume: 1,000, Start date: 02/10/21 9:37:00 CDT, Duration: 30 day, Stop date: 03/12/21 9:36:00 CDT, BSA: 2.01 m2, 0 Sodium 2021-0 No 1,000 mL, [facility] Chloride 8-20 Rate: 75 l 0.9% IV 14:37: ml/hr, [place] 1,000 mL 00 Infuse over: 13.3 hr, Route: IV, Dosing Weight 84.091 kg, Total Volume: 1,000, Start date: 02/10/21 9:37:00 CDT, Duration: 30 day, Stop date: 03/12/21 9:36:00 CDT, BSA: 2.01 m2, 0 Sodium 2021-0 No 1,000 mL, [facility] Chloride 8-20 Rate: 75 l 0.9% IV 14:37: ml/hr, Ran 1,000 mL 00 Infuse over: 13.3 hr, Route: IV, Dosing Weight 84.091 kg, Total Volume: 1,000, Start date: 02/10/21 9:37:00 CDT, Duration: 30 day, Stop date: 03/12/21 9:36:00 CDT, BSA: 2.01 m2, 0 Sodium 2021-0 No 1,000 mL, [facility] Chloride 8-20 Rate: 75 l 0.9% IV 14:37: ml/hr, Ran 1,000 mL 00 Infuse over: 13.3 hr, Route: IV, Dosing Weight 84.091 kg, Total Volume: 1,000, Start date: 02/10/21 9:37:00 CDT, Duration: 30 day, Stop date: 03/12/21 9:36:00 CDT, BSA: 2.01 m2, 0 Sodium 2021-0 No 1,000 mL, [facility] Chloride 8-20 Rate: 75 l 0.9% IV 14:37: ml/hr, [place] 1,000 mL 00 Infuse over: 13.3 hr, Route: IV, Dosing Weight 84.091 kg, Total Volume: 1,000, Start date: 02/10/21 9:37:00 CDT, Duration: 30 day, Stop date: 03/12/21 9:36:00 CDT, BSA: 2.01 m2, 0 Sodium 2021-0 No 1,000 mL, [facility] Chloride 8-20 Rate: 75 l 0.9% IV 14:37: ml/hr, [place] 1,000 mL 00 Infuse over: 13.3 hr, Route: IV, Dosing Weight 84.091 kg, Total Volume: 1,000, Start date: 02/10/21 9:37:00 CDT, Duration: 30 day, Stop date: 03/12/21 9:36:00 CDT, BSA: 2.01 m2, 0 Sodium 2021-0 No 1,000 mL, [facility] Chloride 8-20 Rate: 75 l 0.9% IV 14:37: ml/hr, [place] 1,000 mL 00 Infuse over: 13.3 hr, Route: IV, Dosing Weight 84.091 kg, Total Volume: 1,000, Start date: 02/10/21 9:37:00 CDT, Duration: 30 day, Stop date: 03/12/21 9:36:00 CDT, BSA: 2.01 m2, 0 Sodium 2021-0 No 1,000 mL, [facility] Chloride 8-20 Rate: 75 l 0.9% IV 14:37: ml/hr, [place] 1,000 mL 00 Infuse over: 13.3 hr, Route: IV, Dosing Weight 84.091 kg, Total Volume: 1,000, Start date: 02/10/21 9:37:00 CDT, Duration: 30 day, Stop date: 03/12/21 9:36:00 CDT, BSA: 2.01 m2, 0 Sodium 2021-0 No 1,000 mL, [facility] Chloride 8-20 Rate: 75 l 0.9% IV 14:37: ml/hr, [place] 1,000 mL 00 Infuse over: 13.3 hr, Route: IV, Dosing Weight 84.091 kg, Total Volume: 1,000, Start date: 02/10/21 9:37:00 CDT, Duration: 30 day, Stop date: 03/12/21 9:36:00 CDT, BSA: 2.01 m2, 0 Sodium 2021-0 No 1,000 mL, [facility] Chloride 8-20 Rate: 75 l 0.9% IV 14:37: ml/hr, [place] 1,000 mL 00 Infuse over: 13.3 hr, Route: IV, Dosing Weight 84.091 kg, Total Volume: 1,000, Start date: 02/10/21 9:37:00 CDT, Duration: 30 day, Stop date: 03/12/21 9:36:00 CDT, BSA: 2.01 m2, 0 Sodium 2021-0 No 1,000 mL, [facility] Chloride 8-20 Rate: 75 l 0.9% IV 14:37: ml/hr, [place] 1,000 mL 00 Infuse over: 13.3 hr, Route: IV, Dosing Weight 84.091 kg, Total Volume: 1,000, Start date: 02/10/21 9:37:00 CDT, Duration: 30 day, Stop date: 03/12/21 9:36:00 CDT, BSA: 2.01 m2, 0 Sodium 2021-0 No 1,000 mL, [facility] Chloride 8-20 Rate: 75 l 0.9% IV 14:37: ml/hr, [place] 1,000 mL 00 Infuse over: 13.3 hr, Route: IV, Dosing Weight 84.091 kg, Total Volume: 1,000, Start date: 02/10/21 9:37:00 CDT, Duration: 30 day, Stop date: 03/12/21 9:36:00 CDT, BSA: 2.01 m2, 0 Sodium 2021-0 No 1,000 mL, [facility] Chloride 8-20 Rate: 75 l 0.9% IV 14:37: ml/hr, [place] 1,000 mL 00 Infuse over: 13.3 hr, Route: IV, Dosing Weight 84.091 kg, Total Volume: 1,000, Start date: 02/10/21 9:37:00 CDT, Duration: 30 day, Stop date: 03/12/21 9:36:00 CDT, BSA: 2.01 m2, 0 Sodium 2021-0 No 1,000 mL, [facility] Chloride 8-20 Rate: 75 l 0.9% IV 14:37: ml/hr, [place] 1,000 mL 00 Infuse over: 13.3 hr, Route: IV, Dosing Weight 84.091 kg, Total Volume: 1,000, Start date: 02/10/21 9:37:00 CDT, Duration: 30 day, Stop date: 03/12/21 9:36:00 CDT, BSA: 2.01 m2, 0 Sodium 2021-0 No 1,000 mL, [facility] Chloride 8-20 Rate: 75 l 0.9% IV 14:37: ml/hr, [place] 1,000 mL 00 Infuse over: 13.3 hr, Route: IV, Dosing Weight 84.091 kg, Total Volume: 1,000, Start date: 02/10/21 9:37:00 CDT, Duration: 30 day, Stop date: 03/12/21 9:36:00 CDT, BSA: 2.01 m2, 0 Sodium 2021-0 No 1,000 mL, [facility] Chloride 8-20 Rate: 75 l 0.9% IV 14:37: ml/hr, [place] 1,000 mL 00 Infuse over: 13.3 hr, Route: IV, Dosing Weight 84.091 kg, Total Volume: 1,000, Start date: 02/10/21 9:37:00 CDT, Duration: 30 day, Stop date: 03/12/21 9:36:00 CDT, BSA: 2.01 m2, 0 Sodium 2021-0 No 1,000 mL, [facility] Chloride 8-20 Rate: 75 l 0.9% IV 14:37: ml/hr, [place] 1,000 mL 00 Infuse over: 13.3 hr, Route: IV, Dosing Weight 84.091 kg, Total Volume: 1,000, Start date: 02/10/21 9:37:00 CDT, Duration: 30 day, Stop date: 03/12/21 9:36:00 CDT, BSA: 2.01 m2, 0 Sodium 2021-0 No 1,000 mL, [facility] Chloride 8-20 Rate: 75 l 0.9% IV 14:37: ml/hr, [place] 1,000 mL 00 Infuse over: 13.3 hr, Route: IV, Dosing Weight 84.091 kg, Total Volume: 1,000, Start date: 02/10/21 9:37:00 CDT, Duration: 30 day, Stop date: 03/12/21 9:36:00 CDT, BSA: 2.01 m2, 0 Sodium 2021-0 No 1,000 mL, [facility] Chloride 8-20 Rate: 75 l 0.9% IV 14:37: ml/hr, [place] 1,000 mL 00 Infuse over: 13.3 hr, Route: IV, Dosing Weight 84.091 kg, Total Volume: 1,000, Start date: 02/10/21 9:37:00 CDT, Duration: 30 day, Stop date: 03/12/21 9:36:00 CDT, BSA: 2.01 m2, 0 Sodium 2021-0 No 1,000 mL, [facility] Chlor[facility] 8-20 Rate: 75 l 0.9% IV 14:37: ml/hr, [place] 1,000 mL 00 Infuse over: 13.3 hr, Route: IV, Dosing Weight 84.091 kg, Total Volume: 1,000, Start date: 02/10/21 9:37:00 CDT, Duration: 30 day, Stop date: 03/12/21 9:36:00 CDT, BSA: 2.01 m2, 0 Sodium 2021-0 No 1,000 mL, [facility] Chloride 8-20 Rate: 75 l 0.9% IV 14:37: ml/hr, [place] 1,000 mL 00 Infuse over: 13.3 hr, Route: IV, Dosing Weight 84.091 kg, Total Volume: 1,000, Start date: 02/10/21 9:37:00 CDT, Duration: 30 day, Stop date: 03/12/21 9:36:00 CDT, BSA: 2.01 m2, 0 Sodium 2021-0 No 1,000 mL, [facility] Chloride 8-20 Rate: 75 l 0.9% IV 14:37: ml/hr, [place] 1,000 mL 00 Infuse over: 13.3 hr, Route: IV, Dosing Weight 84.091 kg, Total Volume: 1,000, Start date: 02/10/21 9:37:00 CDT, Duration: 30 day, Stop date: 03/12/21 9:36:00 CDT, BSA: 2.01 m2, 0 Sodium 2021-0 No 1,000 mL, [facility] 8-20 Rate: 75 l 0.9% IV 14:37: ml/hr, [place] 1,000 mL 00 Infuse over: 13.3 hr, Route: IV, Dosing Weight 84.091 kg, Total Volume: 1,000, Start date: 02/10/21 9:37:00 CDT, Duration: 30 day, Stop date: 03/12/21 9:36:00 CDT, BSA: 2.01 m2, 0 Sodium 2021-0 No 1,000 mL, [facility] Chlor[facility] 8-20 Rate: 75 l 0.9% IV 14:37: ml/hr, [place] 1,000 mL 00 Infuse over: 13.3 hr, Route: IV, Dosing Weight 84.091 kg, Total Volume: 1,000, Start date: 02/10/21 9:37:00 CDT, Duration: 30 day, Stop date: 03/12/21 9:36:00 CDT, BSA: 2.01 m2, 0 Sodium 2021-0 No 1,000 mL, [facility]lor[facility] 8-20 Rate: 75 l 0.9% IV 14:37: ml/hr, [place] 1,000 mL 00 Infuse over: 13.3 hr, Route: IV, Dosing Weight 84.091 kg, Total Volume: 1,000, Start date: 02/10/21 9:37:00 CDT, Duration: 30 day, Stop date: 03/12/21 9:36:00 CDT, BSA: 2.01 m2, 0 Sodium 2021-0 No 1,000 mL, [facility] Chlor[facility] 8-20 Rate: 75 l 0.9% IV 14:37: ml/hr, [place] 1,000 mL 00 Infuse over: 13.3 hr, Route: IV, Dosing Weight 84.091 kg, Total Volume: 1,000, Start date: 02/10/21 9:37:00 CDT, Duration: 30 day, Stop date: 03/12/21 9:36:00 CDT, BSA: 2.01 m2, 0 Sodium 2021-0 No 1,000 mL, [facility] Chloride 8-20 Rate: 75 l 0.9% IV 14:37: ml/hr, [place] 1,000 mL 00 Infuse over: 13.3 hr, Route: IV, Dosing Weight 84.091 kg, Total Volume: 1,000, Start date: 02/10/21 9:37:00 CDT, Duration: 30 day, Stop date: 03/12/21 9:36:00 CDT, BSA: 2.01 m2, 0 Sodium 2021-0 No 1,000 mL, [facility] Chloride 8-20 Rate: 75 l 0.9% IV 14:37: ml/hr, [place] 1,000 mL 00 Infuse over: 13.3 hr, Route: IV, Dosing Weight 84.091 kg, Total Volume: 1,000, Start date: 02/10/21 9:37:00 CDT, Duration: 30 day, Stop date: 03/12/21 9:36:00 CDT, BSA: 2.01 m2, 0 Sodium 2021-0 No 1,000 mL, [facility] Chloride 8-20 Rate: 75 l 0.9% IV 14:37: ml/hr, [place] 1,000 mL 00 Infuse over: 13.3 hr, Route: IV, Dosing Weight 84.091 kg, Total Volume: 1,000, Start date: 02/10/21 9:37:00 CDT, Duration: 30 day, Stop date: 03/12/21 9:36:00 CDT, BSA: 2.01 m2, 0 Sodium 2021-0 No 1,000 mL, [facility] Chloride 8-20 Rate: 75 l 0.9% IV 14:37: ml/hr, [place] 1,000 mL 00 Infuse over: 13.3 hr, Route: IV, Dosing Weight 84.091 kg, Total Volume: 1,000, Start date: 02/10/21 9:37:00 CDT, Duration: 30 day, Stop date: 03/12/21 9:36:00 CDT, BSA: 2.01 m2, 0 Sodium 2021-0 No 1,000 mL, [facility] Chloride 8-20 Rate: 75 l 0.9% IV 14:37: ml/hr, [place] 1,000 mL 00 Infuse over: 13.3 hr, Route: IV, Dosing Weight 84.091 kg, Total Volume: 1,000, Start date: 02/10/21 9:37:00 CDT, Duration: 30 day, Stop date: 03/12/21 9:36:00 CDT, BSA: 2.01 m2, 0 Sodium 2021-0 No 1,000 mL, [facility] Chloride 8-20 Rate: 75 l 0.9% IV 14:37: ml/hr, [place] 1,000 mL 00 Infuse over: 13.3 hr, Route: IV, Dosing Weight 84.091 kg, Total Volume: 1,000, Start date: 02/10/21 9:37:00 CDT, Duration: 30 day, Stop date: 03/12/21 9:36:00 CDT, BSA: 2.01 m2, 0 Sodium 2021-0 No 1,000 mL, [facility] Chloride 8-20 Rate: 75 l 0.9% IV 14:37: ml/hr, [place] 1,000 mL 00 Infuse over: 13.3 hr, Route: IV, Dosing Weight 84.091 kg, Total Volume: 1,000, Start date: 02/10/21 9:37:00 CDT, Duration: 30 day, Stop date: 03/12/21 9:36:00 CDT, BSA: 2.01 m2, 0 Sodium 2021-0 No 1,000 mL, [facility] Chloride 8-20 Rate: 75 l 0.9% IV 14:37: ml/hr, [place] 1,000 mL 00 Infuse over: 13.3 hr, Route: IV, Dosing Weight 84.091 kg, Total Volume: 1,000, Start date: 02/10/21 9:37:00 CDT, Duration: 30 day, Stop date: 03/12/21 9:36:00 CDT, BSA: 2.01 m2, 0 Sodium 2021-0 No 1,000 mL, [facility] Chloride 8-20 Rate: 75 l 0.9% IV 14:37: ml/hr, [place] 1,000 mL 00 Infuse over: 13.3 hr, Route: IV, Dosing Weight 84.091 kg, Total Volume: 1,000, Start date: 02/10/21 9:37:00 CDT, Duration: 30 day, Stop date: 03/12/21 9:36:00 CDT, BSA: 2.01 m2, 0 pantoprazol No Notes: For [facility] 8-20 IV push l 14:00: reconstitu [place] 00 te with 10 ml 0.9% sodium chloride and push over 2 minutes. (Same as: Protonix) pantoprazol No Notes: For [facility] 8-20 IV push l 14:00: reconstitu [place] 00 te with 10 ml 0.9% sodium chloride and push over 2 minutes. (Same as: Protonix) pantoprazol No Notes: For [facility] 8-20 IV push l 14:00: reconstitu [place] 00 te with 10 ml 0.9% sodium chloride and push over 2 minutes. (Same as: Protonix) pantoprazol No Notes: For [facility] 8-20 IV push l 14:00: reconstitu [place] 00 te with 10 ml 0.9% sodium chloride and push over 2 minutes. (Same as: Protonix) pantoprazol No Notes: For [facility] 8-20 IV push l 14:00: reconstitu [place] 00 te with 10 ml 0.9% sodium chloride and push over 2 minutes. (Same as: Protonix) pantoprazol No Notes: For [facility] 8-20 IV push l 14:00: reconstitu [place] 00 te with 10 ml 0.9% sodium chloride and push over 2 minutes. (Same as: Protonix) pantoprazol No Notes: For [facility] 8-20 IV push l 14:00: reconstitu [place] 00 te with 10 ml 0.9% sodium chloride and push over 2 minutes. (Same as: Protonix) pantoprazol No Notes: For [facility] 8-20 IV push l 14:00: reconstitu [place] 00 te with 10 ml 0.9% sodium chloride and push over 2 minutes. (Same as: Protonix) pantoprazol No Notes: For [facility] 8-20 IV push l 14:00: reconstitu [place] 00 te with 10 ml 0.9% sodium chloride and push over 2 minutes. (Same as: Protonix) pantoprazol No Notes: For [facility] 8-20 IV push l 14:00: reconstitu [place] 00 te with 10 ml 0.9% sodium chloride and push over 2 minutes. (Same as: Protonix) pantoprazol No Notes: For [facility] 8-20 IV push l 14:00: reconstitu [place] 00 te with 10 ml 0.9% sodium chloride and push over 2 minutes. (Same as: Protonix) pantoprazol No Notes: For [facility] 8-20 IV push l 14:00: reconstitu [place] 00 te with 10 ml 0.9% sodium chloride and push over 2 minutes. (Same as: Protonix) pantoprazol No Notes: For [facility] 8-20 IV push l 14:00: reconstitu [place] 00 te with 10 ml 0.9% sodium chloride and push over 2 minutes. (Same as: Protonix) pantoprazol No Notes: For [facility] 8-20 IV push l 14:00: reconstitu [place] 00 te with 10 ml 0.9% sodium chloride and push over 2 minutes. (Same as: Protonix) pantoprazol No Notes: For [facility] 8-20 IV push l 14:00: reconstitu [place] 00 te with 10 ml 0.9% sodium chloride and push over 2 minutes. (Same as: Protonix) pantoprazol No Notes: For [facility] 8-20 IV push l 14:00: reconstitu [place] 00 te with 10 ml 0.9% sodium chloride and push over 2 minutes. (Same as: Protonix) pantoprazol No Notes: For [facility] 8-20 IV push l 14:00: reconstitu [place] 00 te with 10 ml 0.9% sodium chloride and push over 2 minutes. (Same as: Protonix) pantoprazol 0 No Notes: For [facility] 8-20 IV push l 14:00: reconstitu [place] 00 te with 10 ml 0.9% sodium chloride and push over 2 minutes. (Same as: Protonix) pantoprazol No Notes: For [facility] 8-20 IV push l 14:00: reconstitu [place] 00 te with 10 ml 0.9% sodium chloride and push over 2 minutes. (Same as: Protonix) pantoprazol No Notes: For [facility] 8-20 IV push l 14:00: reconstitu [place] 00 te with 10 ml 0.9% sodium chloride and push over 2 minutes. (Same as: Protonix) pantoprazol No Notes: For [facility] 8-20 IV push l 14:00: reconstitu [place] 00 te with 10 ml 0.9% sodium chloride and push over 2 minutes. (Same as: Protonix) pantoprazol No Notes: For [facility] 8-20 IV push l 14:00: reconstitu [place] 00 te with 10 ml 0.9% sodium chloride and push over 2 minutes. (Same as: Protonix) pantoprazol No Notes: For [facility] 8-20 IV push l 14:00: reconstitu [place] 00 te with 10 ml 0.9% sodium chloride and push over 2 minutes. (Same as: Protonix) pantoprazol No Notes: For [facility] 8-20 IV push l 14:00: reconstitu [place] 00 te with 10 ml 0.9% sodium chloride and push over 2 minutes. (Same as: Protonix) pantoprazol No Notes: For [facility] 8-20 IV push l 14:00: reconstitu [place] 00 te with 10 ml 0.9% sodium chloride and push over 2 minutes. (Same as: Protonix) pantoprazol No Notes: For [facility] 8-20 IV push l 14:00: reconstitu [place] 00 te with 10 ml 0.9% sodium chloride and push over 2 minutes. (Same as: Protonix) pantoprazol No Notes: For [facility] 8-20 IV push l 14:00: reconstitu [place] 00 te with 10 ml 0.9% sodium chloride and push over 2 minutes. (Same as: Protonix) pantoprazol No Notes: For [facility] 8-20 IV push l 14:00: reconstitu [place] 00 te with 10 ml 0.9% sodium chloride and push over 2 minutes. (Same as: Protonix) pantoprazol 0 No Notes: For [facility] 8-20 IV push l 14:00: reconstitu [place] 00 te with 10 ml 0.9% sodium chloride and push over 2 minutes. (Same as: Protonix) pantoprazol No Notes: For [facility] 8-20 IV push l 14:00: reconstitu [place] 00 te with 10 ml 0.9% sodium chloride and push over 2 minutes. (Same as: Protonix) pantoprazol No Notes: For [facility] 8-20 IV push l 14:00: reconstitu [place] 00 te with 10 ml 0.9% sodium chloride and push over 2 minutes. (Same as: Protonix) pantoprazol No Notes: For [facility] 8-20 IV push l 14:00: reconstitu [place] 00 te with 10 ml 0.9% sodium chloride and push over 2 minutes. (Same as: Protonix) pantoprazol No Notes: For [facility] 8-20 IV push l 14:00: reconstitu [place] 00 te with 10 ml 0.9% sodium chloride and push over 2 minutes. (Same as: Protonix) pantoprazol No Notes: For [facility] 8-20 IV push l 14:00: reconstitu [place] 00 te with 10 ml 0.9% sodium chloride and push over 2 minutes. (Same as: Protonix) pantoprazol No Notes: For [facility] 8-20 IV push l 14:00: reconstitu [place] 00 te with 10 ml 0.9% sodium chloride and push over 2 minutes. (Same as: Protonix) pantoprazol No Notes: For [facility] 8-20 IV push l 14:00: reconstitu [place] 00 te with 10 ml 0.9% sodium chloride and push over 2 minutes. (Same as: Protonix) pantoprazol No Notes: For [facility] 8-20 IV push l 14:00: reconstitu [place] 00 te with 10 ml 0.9% sodium chloride and push over 2 minutes. (Same as: Protonix) pantoprazol No Notes: For [facility] 8-20 IV push l 14:00: reconstitu [place] 00 te with 10 ml 0.9% sodium chloride and push over 2 minutes. (Same as: Protonix) pantoprazol No Notes: For [facility] 8-20 IV push l 14:00: reconstitu [place] 00 te with 10 ml 0.9% sodium chloride and push over 2 minutes. (Same as: Protonix) pantoprazol No Notes: For [facility] 8-20 IV push l 14:00: reconstitu [place] 00 te with 10 ml 0.9% sodium chloride and push over 2 minutes. (Same as: Protonix) pantoprazol No Notes: For [facility] 8-20 IV push l 14:00: reconstitu [place] 00 te with 10 ml 0.9% sodium chloride and push over 2 minutes. (Same as: Protonix) Adult Yes 81 mg = 1 [facility] Aspirin 81 8-20 tab, CHEW, l mg oral 12:57: Daily, 0 [place] tablet, 00 Refill(s) chewable Adult Yes 81 mg = 1 [facility] Aspirin 81 8-20 tab, CHEW, l mg oral 12:57: Daily, 0 [place] tablet, 00 Refill(s) chewable Adult Yes 81 mg = 1 [facility] Aspirin 81 8-20 tab, CHEW, l mg oral 12:57: Daily, 0 [place] tablet, 00 Refill(s) chewable Adult Yes 81 mg = 1 [facility] Aspirin 81 8-20 tab, CHEW, l mg oral 12:57: Daily, 0 [place] tablet, 00 Refill(s) chewable Adult Yes 81 mg = 1 [facility] Aspirin 81 8-20 tab, CHEW, l mg oral 12:57: Daily, 0 [place] tablet, 00 Refill(s) chewable Adult Yes 81 mg = 1 [facility] Aspirin 81 8-20 tab, CHEW, l mg oral 12:57: Daily, 0 [place] tablet, 00 Refill(s) chewable Adult Yes 81 mg = 1 [facility] Aspirin 81 8-20 tab, CHEW, l mg oral 12:57: Daily, 0 [place] tablet, 00 Refill(s) chewable Adult Yes 81 mg = 1 [facility] Aspirin 81 8-20 tab, CHEW, l mg oral 12:57: Daily, 0 [place] tablet, 00 Refill(s) chewable Adult Yes 81 mg = 1 [facility] Aspirin 81 8-20 tab, CHEW, l mg oral 12:57: Daily, 0 [place] tablet, 00 Refill(s) chewable Adult Yes 81 mg = 1 [facility] Aspirin 81 8-20 tab, CHEW, l mg oral 12:57: Daily, 0 [place] tablet, 00 Refill(s) chewable Adult Yes 81 mg = 1 [facility] Aspirin 81 8-20 tab, CHEW, l mg oral 12:57: Daily, 0 [place] tablet, 00 Refill(s) chewable Adult Yes 81 mg = 1 [facility] Aspirin 81 8-20 tab, CHEW, l mg oral 12:57: Daily, 0 [place] tablet, 00 Refill(s) chewable Adult Yes 81 mg = 1 [facility] Aspirin 81 8-20 tab, CHEW, l mg oral 12:57: Daily, 0 [place] tablet, 00 Refill(s) chewable Adult Yes 81 mg = 1 [facility] Aspirin 81 8-20 tab, CHEW, l mg oral 12:57: Daily, 0 [place] tablet, 00 Refill(s) chewable Adult Yes 81 mg = 1 [facility] Aspirin 81 8-20 tab, CHEW, l mg oral 12:57: Daily, 0 [place] tablet, 00 Refill(s) chewable Adult Yes 81 mg = 1 [facility] Aspirin 81 8-20 tab, CHEW, l mg oral 12:57: Daily, 0 [place] tablet, 00 Refill(s) chewable Adult Yes 81 mg = 1 [facility] Aspirin 81 8-20 tab, CHEW, l mg oral 12:57: Daily, 0 [place] tablet, 00 Refill(s) chewable Adult Yes 81 mg = 1 [facility] Aspirin 81 8-20 tab, CHEW, l mg oral 12:57: Daily, 0 [place] tablet, 00 Refill(s) chewable Adult Yes 81 mg = 1 [facility] Aspirin 81 8-20 tab, CHEW, l mg oral 12:57: Daily, 0 [place] tablet, 00 Refill(s) chewable Adult Yes 81 mg = 1 [facility] Aspirin 81 8-20 tab, CHEW, l mg oral 12:57: Daily, 0 [place] tablet, 00 Refill(s) chewable Adult Yes 81 mg = 1 [facility] Aspirin 81 8-20 tab, CHEW, l mg oral 12:57: Daily, 0 [place] tablet, 00 Refill(s) chewable Adult Yes 81 mg = 1 [facility] Aspirin 81 8-20 tab, CHEW, l mg oral 12:57: Daily, 0 [place] tablet, 00 Refill(s) chewable Adult Yes 81 mg = 1 [facility] Aspirin 81 8-20 tab, CHEW, l mg oral 12:57: Daily, 0 [place] tablet, 00 Refill(s) chewable Adult Yes 81 mg = 1 [facility] Aspirin 81 8-20 tab, CHEW, l mg oral 12:57: Daily, 0 [place] tablet, 00 Refill(s) chewable Adult Yes 81 mg = 1 [facility] Aspirin 81 8-20 tab, CHEW, l mg oral 12:57: Daily, 0 [place] tablet, 00 Refill(s) chewable Adult Yes 81 mg = 1 [facility] Aspirin 81 8-20 tab, CHEW, l mg oral 12:57: Daily, 0 [place] tablet, 00 Refill(s) chewable Adult Yes 81 mg = 1 [facility] Aspirin 81 8-20 tab, CHEW, l mg oral 12:57: Daily, 0 [place] tablet, 00 Refill(s) chewable Adult Yes 81 mg = 1 [facility] Aspirin 81 8-20 tab, CHEW, l mg oral 12:57: Daily, 0 [place] tablet, 00 Refill(s) chewable Adult Yes 81 mg = 1 [facility] Aspirin 81 8-20 tab, CHEW, l mg oral 12:57: Daily, 0 [place] tablet, 00 Refill(s) chewable Adult Yes 81 mg = 1 [facility] Aspirin 81 8-20 tab, CHEW, l mg oral 12:57: Daily, 0 [place] tablet, 00 Refill(s) chewable Adult Yes 81 mg = 1 [facility] Aspirin 81 8-20 tab, CHEW, l mg oral 12:57: Daily, 0 [place] tablet, 00 Refill(s) chewable Adult Yes 81 mg = 1 [facility] Aspirin 81 8-20 tab, CHEW, l mg oral 12:57: Daily, 0 [place] tablet, 00 Refill(s) chewable Adult Yes 81 mg = 1 [facility] Aspirin 81 8-20 tab, CHEW, l mg oral 12:57: Daily, 0 [place] tablet, 00 Refill(s) chewable Adult Yes 81 mg = 1 [facility] Aspirin 81 8-20 tab, CHEW, l mg oral 12:57: Daily, 0 [place] tablet, 00 Refill(s) chewable Adult Yes 81 mg = 1 [facility] Aspirin 81 8-20 tab, CHEW, l mg oral 12:57: Daily, 0 [place] tablet, 00 Refill(s) chewable Adult Yes 81 mg = 1 [facility] Aspirin 81 8-20 tab, CHEW, l mg oral 12:57: Daily, 0 [place] tablet, 00 Refill(s) chewable Adult Yes 81 mg = 1 [facility] Aspirin 81 8-20 tab, CHEW, l mg oral 12:57: Daily, 0 [place] tablet, 00 Refill(s) chewable Adult Yes 81 mg = 1 [facility] Aspirin 81 8-20 tab, CHEW, l mg oral 12:57: Daily, 0 [place] tablet, 00 Refill(s) chewable Adult Yes 81 mg = 1 [facility] Aspirin 81 8-20 tab, CHEW, l mg oral 12:57: Daily, 0 [place] tablet, 00 Refill(s) chewable Adult Yes 81 mg = 1 [facility] Aspirin 81 8-20 tab, CHEW, l mg oral 12:57: Daily, 0 [place] tablet, 00 Refill(s) chewable Adult Yes 81 mg = 1 [facility] Aspirin 81 8-20 tab, CHEW, l mg oral 12:57: Daily, 0 [place] tablet, 00 Refill(s) chewable plecanatide Yes 3 mg = 1 Me moria 3 MG Oral 8-20 tab, PO, l Tablet 12:56: Daily, 0 Ran [Trulance] 00 Refill(s) plecanatide 2021-0 Yes 3 mg = 1 Me moria 3 MG Oral 8-20 tab, PO, l Tablet 12:56: Daily, 0 Ran [Trulance] 00 Refill(s) plecanatide 1-0 Yes 3 mg = 1 Me moria 3 MG Oral 8-20 tab, PO, l Tablet 12:56: Daily, 0 Ran [Trulance] 00 Refill(s) plecanatide 1-0 Yes 3 mg = 1 Me moria 3 MG Oral 8-20 tab, PO, l Tablet 12:56: Daily, 0 [facility] [[facility]] 00 Refill(s) plecanatide 1-0 Yes 3 mg = 1 [facility] 3 MG Oral 8-20 tab, PO, l Tablet 12:56: Daily, 0 [place] [[facility]] 00 Refill(s) plecanatide 2021-0 Yes 3 mg = 1 [facility] 3 MG Oral 8-20 tab, PO, l Tablet 12:56: Daily, 0 [facility] [[facility]] 00 Refill(s) plecanatide 2021-0 Yes 3 mg = 1 [facility] 3 MG Oral 8-20 tab, PO, l Tablet 12:56: Daily, 0 [facility] [[facility]] 00 Refill(s) plecanatide 1-0 Yes 3 mg = 1 [facility] 3 MG Oral 8-20 tab, PO, l Tablet 12:56: Daily, 0 [facility] [[facility]] 00 Refill(s) plecanatide 2021-0 Yes 3 mg = 1 [facility] 3 MG Oral 8-20 tab, PO, l Tablet 12:56: Daily, 0 [facility] [[facility]] 00 Refill(s) plecanatide 2021-0 Yes 3 mg = 1 [facility] 3 MG Oral 8-20 tab, PO, l Tablet 12:56: Daily, 0 [facility] [[facility]] 00 Refill(s) plecanatide 2021-0 Yes 3 mg = 1 [facility] 3 MG Oral 8-20 tab, PO, l Tablet 12:56: Daily, 0 [place] [[facility]] 00 Refill(s) plecanatide 2021-0 Yes 3 mg = 1 [facility] 3 MG Oral 8-20 tab, PO, l Tablet 12:56: Daily, 0 [place] [[facility]] 00 Refill(s) plecanatide 1-0 Yes 3 mg = 1 [facility] 3 MG Oral 8-20 tab, PO, l Tablet 12:56: Daily, 0 [facility] [[facility]] 00 Refill(s) plecanatide 1-0 Yes 3 mg = 1 [facility] 3 MG Oral 8-20 tab, PO, l Tablet 12:56: Daily, 0 [facility] [[facility]] 00 Refill(s) plecanatide 1-0 Yes 3 mg = 1 [facility] 3 MG Oral 8-20 tab, PO, l Tablet 12:56: Daily, 0 [place] [[facility]] 00 Refill(s) plecanatide 1-0 Yes 3 mg = 1 [facility] 3 MG Oral 8-20 tab, PO, l Tablet 12:56: Daily, 0 [facility] [[facility]] 00 Refill(s) plecanatide 1-0 Yes 3 mg = 1 [facility] 3 MG Oral 8-20 tab, PO, l Tablet 12:56: Daily, 0 [place] [[facility]] 00 Refill(s) plecanatide 1-0 Yes 3 mg = 1 [facility] 3 MG Oral 8-20 tab, PO, l Tablet 12:56: Daily, 0 [facility] [[facility]] 00 Refill(s) plecanatide 2021-0 Yes 3 mg = 1 [facility] 3 MG Oral 8-20 tab, PO, l Tablet 12:56: Daily, 0 [place] [[facility]] 00 Refill(s) plecanatide 1-0 Yes 3 mg = 1 [facility] 3 MG Oral 8-20 tab, PO, l Tablet 12:56: Daily, 0 [place] [[facility]] 00 Refill(s) plecanatide 2021-0 Yes 3 mg = 1 [facility] 3 MG Oral 8-20 tab, PO, l Tablet 12:56: Daily, 0 [place] [[facility]] 00 Refill(s) plecanatide 2021-0 Yes 3 mg = 1 [facility] 3 MG Oral 8-20 tab, PO, l Tablet 12:56: Daily, 0 [place] [[facility]] 00 Refill(s) plecanatide 2021-0 Yes 3 mg = 1 [facility] 3 MG Oral 8-20 tab, PO, l Tablet 12:56: Daily, 0 [place] [[facility]] 00 Refill(s) plecanatide 2021-0 Yes 3 mg = 1 [facility] 3 MG Oral 8-20 tab, PO, l Tablet 12:56: Daily, 0 [facility] [[facility]] 00 Refill(s) plecanatide 1-0 Yes 3 mg = 1 [facility] 3 MG Oral 8-20 tab, PO, l Tablet 12:56: Daily, 0 [place] [[facility]] 00 Refill(s) plecanatide 1-0 Yes 3 mg = 1 [facility] 3 MG Oral 8-20 tab, PO, l Tablet 12:56: Daily, 0 [place] [Trulance] 00 Refill(s) plecanatide 2021-0 Yes 3 mg = 1 Me moria 3 MG Oral 8-20 tab, PO, l Tablet 12:56: Daily, 0 [place] [Trulance] 00 Refill(s) plecanatide 2021-0 Yes 3 mg = 1 Me moria 3 MG Oral 8-20 tab, PO, l Tablet 12:56: Daily, 0 [place] [Tr[facility]] 00 Refill(s) plecanatide 1-0 Yes 3 mg = 1 Me moria 3 MG Oral 8-20 tab, PO, l Tablet 12:56: Daily, 0 [place] [Trulance] 00 Refill(s) plecanatide 1-0 Yes 3 mg = 1 Me mor[place] 3 MG Oral 8-20 tab, PO, l Tablet 12:56: Daily, 0 [place] [Trulance] 00 Refill(s) plecanatide 2021-0 Yes 3 mg = 1 Me mor[place] 3 MG Oral 8-20 tab, PO, l Tablet 12:56: Daily, 0 [place] [Trulance] 00 Refill(s) plecanatide 2021-0 Yes 3 mg = 1 Me mor[place] 3 MG Oral 8-20 tab, PO, l Tablet 12:56: Daily, 0 [place] [[facility]] 00 Refill(s) plecanatide 2021-0 Yes 3 mg = 1 Me mor[place] 3 MG Oral 8-20 tab, PO, l Tablet 12:56: Daily, 0 [place] [[facility]] 00 Refill(s) plecanatide 2021-0 Yes 3 mg = 1 Me mor[place] 3 MG Oral 8-20 tab, PO, l Tablet 12:56: Daily, 0 [place] [Tr[facility]] 00 Refill(s) plecanatide 1-0 Yes 3 mg = 1 Me moria 3 MG Oral 8-20 tab, PO, l Tablet 12:56: Daily, 0 [place] [[facility]] 00 Refill(s) plecanatide 2020-0 Yes 3 mg = 1 Me moria 3 MG Oral 8-20 tab, PO, l Tablet 12:56: Daily, 0 [place] [[facility]] 00 Refill(s) plecanatide 1-0 Yes 3 mg = 1 Me moria 3 MG Oral 8-20 tab, PO, l Tablet 12:56: Daily, 0 [place] [Tr[facility]] 00 Refill(s) plecanatide 2020-0 Yes 3 mg = 1 Me mor[place] 3 MG Oral 8-20 tab, PO, l Tablet 12:56: Daily, 0 [place] [Trulance] 00 Refill(s) plecanatide 1-0 Yes 3 mg = 1 Me mor[place] 3 MG Oral 8-20 tab, PO, l Tablet 12:56: Daily, 0 [place] [[facility]] 00 Refill(s) plecanatide 1-0 Yes 3 mg = 1 Me mor[place] 3 MG Oral 8-20 tab, PO, l Tablet 12:56: Daily, 0 [place] [[facility]] 00 Refill(s) plecanatide 1-0 Yes 3 mg = 1 Me mor[place] 3 MG Oral 8-20 tab, PO, l Tablet 12:56: Daily, 0 [place] [[facility]] 00 Refill(s) Ondansetron No Notes: Shemran timbo 8-20 (Same as: l 06:42: Zofran) Ran 00 MEDICATION WASTE Product Size: 4 mg Product Wasted: ___ mg Sodium No 984.8 mL, [facility] 8-20 Rate: 75 l 0.9% IV 06:42: ml/hr, [place] 984.8 mL + 00 Infuse M.V.I.-12 over: 13.3 10 mL Daily hr, Route: + folic IV, Dosing acid IV 1 Weight mg Daily + 84.091 kg, thiamine IV Total 5 Volume: 1,000, Start date: 02/10/21 1:42:00 CDT, Duration: 1 doses or times, Stop date: 02/10/21 14:59:00 CDT, BSA: 2.01 m2, 0 Ondansetron 2020-0 No Notes: Sherman timbo 8-20 (Same as: l 06:42: [place]) Ran 00 MEDICATION WASTE Product Size: 4 mg Product Wasted: ___ mg Sodium No 984.8 mL, [facility] Chloride 8-20 Rate: 75 l 0.9% IV 06:42: ml/hr, [place] 984.8 mL + 00 Infuse M.V.I.-12 over: 13.3 10 mL Daily hr, Route: + folic IV, Dosing acid IV 1 Weight mg Daily + 84.091 kg, thiamine IV Total 5 Volume: 1,000, Start date: 02/10/21 1:42:00 CDT, Duration: 1 doses or times, Stop date: 02/10/21 14:59:00 CDT, BSA: 2.01 m2, 0 Ondansetron 2020-0 No Notes: Sherman timbo 8-20 (Same as: l 06:42: [place]) Ran 00 MEDICATION WASTE Product Size: 4 mg Product Wasted: ___ mg Sodium No 984.8 mL, [facility] a Chloride 8-20 Rate: 75 l 0.9% IV 06:42: ml/hr, [place] 984.8 mL + 00 Infuse M.V.I.-12 over: 13.3 10 mL Daily hr, Route: + folic IV, Dosing acid IV 1 Weight mg Daily + 84.091 kg, thiamine IV Total 5 Volume: 1,000, Start date: 02/10/21 1:42:00 CDT, Duration: 1 doses or times, Stop date: 02/10/21 14:59:00 CDT, BSA: 2.01 m2, 0 Ondansetron 2020-0 No Notes: Sherman timbo 8-20 (Same as: l 06:42: [place]) Ran MEDICATION WASTE Product Size: 4 mg Product Wasted: ___ mg Sodium 0 No 984.8 mL, [facility] [place]loride 8-20 Rate: 75 l 0.9% IV 06:42: ml/hr, [place] 984.8 mL + 00 Infuse M.V.I.-12 over: 13.3 10 mL Daily hr, Route: + folic IV, Dosing acid IV 1 Weight mg Daily + 84.091 kg, thiamine IV Total 5 Volume: 1,000, Start date: 02/10/21 1:42:00 CDT, Duration: 1 doses or times, Stop date: 02/10/21 14:59:00 CDT, BSA: 2.01 m2, 0 Ondansetron 2020-0 No Notes: Sherman timbo 8-20 (Same as: apoorva 06:42: [place]) Ran MEDICATION WASTE Product Size: 4 mg Product Wasted: ___ mg Sodium 0 No 984.8 mL, [facility] [place]loride 8-20 Rate: 75 l 0.9% IV 06:42: ml/hr, [place] 984.8 mL + 00 Infuse M.V.I.-12 over: 13.3 10 mL Daily hr, Route: + folic IV, Dosing acid IV 1 Weight mg Daily + 84.091 kg, thiamine IV Total 5 Volume: 1,000, Start date: 02/10/21 1:42:00 CDT, Duration: 1 doses or times, Stop date: 02/10/21 14:59:00 CDT, BSA: 2.01 m2, 0 Ondansetron 2020-0 No Notes: Sherman timbo 8-20 (Same as: apoorva 06:42: [place]) Ran MEDICATION WASTE Product Size: 4 mg Product Wasted: ___ mg Sodium 0 No 984.8 mL, [facility] [place]loride 8-20 Rate: 75 l 0.9% IV 06:42: ml/hr, [place] 984.8 mL + 00 Infuse M.V.I.-12 over: 13.3 10 mL Daily hr, Route: + folic IV, Dosing acid IV 1 Weight mg Daily + 84.091 kg, thiamine IV Total 5 Volume: 1,000, Start date: 02/10/21 1:42:00 CDT, Duration: 1 doses or times, Stop date: 02/10/21 14:59:00 CDT, BSA: 2.01 m2, 0 Ondansetron 2020-0 No Notes: Sherman timbo 8-20 (Same as: l 06:42: Zofran) Ran 00 MEDICATION WASTE Product Size: 4 mg Product Wasted: ___ mg Sodium 0 No 984.8 mL, [facility] [place]loride 8-20 Rate: 75 l 0.9% IV 06:42: ml/hr, [place] 984.8 mL + 00 Infuse M.V.I.-12 over: 13.3 10 mL Daily hr, Route: + folic IV, Dosing acid IV 1 Weight mg Daily + 84.091 kg, thiamine IV Total 5 Volume: 1,000, Start date: 02/10/21 1:42:00 CDT, Duration: 1 doses or times, Stop date: 02/10/21 14:59:00 CDT, BSA: 2.01 m2, 0 Ondansetron 2020-0 No Notes: Sherman timbo 8-20 (Same as: l 06:42: Zofran) Ran MEDICATION WASTE Product Size: 4 mg Product Wasted: ___ mg Sodium 0 No 984.8 mL, [facility] Chloride 8-20 Rate: 75 l 0.9% IV 06:42: ml/hr, [place] 984.8 mL + 00 Infuse M.V.I.-12 over: 13.3 10 mL Daily hr, Route: + folic IV, Dosing acid IV 1 Weight mg Daily + 84.091 kg, thiamine IV Total 5 Volume: 1,000, Start date: 02/10/21 1:42:00 CDT, Duration: 1 doses or times, Stop date: 02/10/21 14:59:00 CDT, BSA: 2.01 m2, 0 Ondansetron 2020-0 No Notes: Sherman timbo 8-20 (Same as: l 06:42: [place]) aRn 00 MEDICATION WASTE Product Size: 4 mg Product Wasted: ___ mg Sodium 2020-0 No 984.8 mL, [facility] a Chloride 8-20 Rate: 75 l 0.9% IV 06:42: ml/hr, [place] 984.8 mL + 00 Infuse M.V.I.-12 over: 13.3 10 mL Daily hr, Route: + folic IV, Dosing acid IV 1 Weight mg Daily + 84.091 kg, thiamine IV Total 5 Volume: 1,000, Start date: 02/10/21 1:42:00 CDT, Duration: 1 doses or times, Stop date: 02/10/21 14:59:00 CDT, BSA: 2.01 m2, 0 Ondansetron 2020-0 No Notes: Sherman timbo 8-20 (Same as: l 06:42: [place]) Ran 00 MEDICATION WASTE Product Size: 4 mg Product Wasted: ___ mg Sodium 0 No 984.8 mL, [facility] [place]loride 8-20 Rate: 75 l 0.9% IV 06:42: ml/hr, [place] 984.8 mL + 00 Infuse M.V.I.-12 over: 13.3 10 mL Daily hr, Route: + folic IV, Dosing acid IV 1 Weight mg Daily + 84.091 kg, thiamine IV Total 5 Volume: 1,000, Start date: 02/10/21 1:42:00 CDT, Duration: 1 doses or times, Stop date: 02/10/21 14:59:00 CDT, BSA: 2.01 m2, 0 Ondansetron 2020-0 No Notes: Sherman timbo 8-20 (Same as: l 06:42: [place]) Ran 00 MEDICATION WASTE Product Size: 4 mg Product Wasted: ___ mg Sodium 2020-0 No 984.8 mL, [facility] Chloride 8-20 Rate: 75 l 0.9% IV 06:42: ml/hr, [place] 984.8 mL + 00 Infuse M.V.I.-12 over: 13.3 10 mL Daily hr, Route: + folic IV, Dosing acid IV 1 Weight mg Daily + 84.091 kg, thiamine IV Total 5 Volume: 1,000, Start date: 02/10/21 1:42:00 CDT, Duration: 1 doses or times, Stop date: 02/10/21 14:59:00 CDT, BSA: 2.01 m2, 0 Ondansetron 2020-0 No Notes: Sherman timbo 8-20 (Same as: l 06:42: [place]) Ran 00 MEDICATION WASTE Product Size: 4 mg Product Wasted: ___ mg Sodium 0 No 984.8 mL, [facility] [place]loride 8-20 Rate: 75 l 0.9% IV 06:42: ml/hr, [place] 984.8 mL + 00 Infuse M.V.I.-12 over: 13.3 10 mL Daily hr, Route: + folic IV, Dosing acid IV 1 Weight mg Daily + 84.091 kg, thiamine IV Total 5 Volume: 1,000, Start date: 02/10/21 1:42:00 CDT, Duration: 1 doses or times, Stop date: 02/10/21 14:59:00 CDT, BSA: 2.01 m2, 0 Ondansetron 2020-0 No Notes: Sherman timbo 8-20 (Same as: l 06:42: [place]) Ran 00 MEDICATION WASTE Product Size: 4 mg Product Wasted: ___ mg Sodium 0 No 984.8 mL, [facility] Chloride 8-20 Rate: 75 l 0.9% IV 06:42: ml/hr, [place] 984.8 mL + 00 Infuse M.V.I.-12 over: 13.3 10 mL Daily hr, Route: + folic IV, Dosing acid IV 1 Weight mg Daily + 84.091 kg, thiamine IV Total 5 Volume: 1,000, Start date: 02/10/21 1:42:00 CDT, Duration: 1 doses or times, Stop date: 02/10/21 14:59:00 CDT, BSA: 2.01 m2, 0 Ondansetron 2020-0 No Notes: Sherman timbo 8-20 (Same as: l 06:42: Zofran) Ran 00 MEDICATION WASTE Product Size: 4 mg Product Wasted: ___ mg Sodium 0 No 984.8 mL, [facility] [place]loride 8-20 Rate: 75 l 0.9% IV 06:42: ml/hr, [place] 984.8 mL + 00 Infuse M.V.I.-12 over: 13.3 10 mL Daily hr, Route: + folic IV, Dosing acid IV 1 Weight mg Daily + 84.091 kg, thiamine IV Total 5 Volume: 1,000, Start date: 02/10/21 1:42:00 CDT, Duration: 1 doses or times, Stop date: 02/10/21 14:59:00 CDT, BSA: 2.01 m2, 0 Ondansetron 0 No Notes: Sherman timbo 8-20 (Same as: l 06:42: Zofran) Ran 00 MEDICATION WASTE Product Size: 4 mg Product Wasted: ___ mg Sodium No 984.8 mL, [facility] Chloride 8-20 Rate: 75 l 0.9% IV 06:42: ml/hr, [place] 984.8 mL + 00 Infuse M.V.I.-12 over: 13.3 10 mL Daily hr, Route: + folic IV, Dosing acid IV 1 Weight mg Daily + 84.091 kg, thiamine IV Total 5 Volume: 1,000, Start date: 02/10/21 1:42:00 CDT, Duration: 1 doses or times, Stop date: 02/10/21 14:59:00 CDT, BSA: 2.01 m2, 0 Ondansetron 2020-0 No Notes: Sherman timbo 8-20 (Same as: l 06:42: Zofran) Ran 00 MEDICATION WASTE Product Size: 4 mg Product Wasted: ___ mg Sodium 0 No 984.8 mL, [facility] [place]lor[place] 8-20 Rate: 75 l 0.9% IV 06:42: ml/hr, [place] 984.8 mL + 00 Infuse M.V.I.-12 over: 13.3 10 mL Daily hr, Route: + folic IV, Dosing acid IV 1 Weight mg Daily + 84.091 kg, thiamine IV Total 5 Volume: 1,000, Start date: 02/10/21 1:42:00 CDT, Duration: 1 doses or times, Stop date: 02/10/21 14:59:00 CDT, BSA: 2.01 m2, 0 Ondansetron 2020-0 No Notes: Sherman timbo 8-20 (Same as: l 06:42: [place]) Ran 00 MEDICATION WASTE Product Size: 4 mg Product Wasted: ___ mg Sodium 2020-0 No 984.8 mL, [facility] Chloride 8-20 Rate: 75 l 0.9% IV 06:42: ml/hr, [place] 984.8 mL + 00 Infuse M.V.I.-12 over: 13.3 10 mL Daily hr, Route: + folic IV, Dosing acid IV 1 Weight mg Daily + 84.091 kg, thiamine IV Total 5 Volume: 1,000, Start date: 02/10/21 1:42:00 CDT, Duration: 1 doses or times, Stop date: 02/10/21 14:59:00 CDT, BSA: 2.01 m2, 0 Ondansetron 2020-0 No Notes: Sherman timbo 8-20 (Same as: l :42: [place]) Ran 00 MEDICATION WASTE Product Size: 4 mg Product Wasted: ___ mg Sodium 2020-0 No 984.8 mL, [facility] [place]loride 8-20 Rate: 75 l 0.9% IV 06:42: ml/hr, [place] 984.8 mL + 00 Infuse M.V.I.-12 over: 13.3 10 mL Daily hr, Route: + folic IV, Dosing acid IV 1 Weight mg Daily + 84.091 kg, thiamine IV Total 5 Volume: 1,000, Start date: 02/10/21 1:42:00 CDT, Duration: 1 doses or times, Stop date: 02/10/21 14:59:00 CDT, BSA: 2.01 m2, 0 Ondansetron 2020-0 No Notes: Sherman timbo 8-20 (Same as: l 06:42: [place]) Ran 00 MEDICATION WASTE Product Size: 4 mg Product Wasted: ___ mg Sodium 0 No 984.8 mL, [facility] Chloride 8-20 Rate: 75 l 0.9% IV 06:42: ml/hr, [place] 984.8 mL + 00 Infuse M.V.I.-12 over: 13.3 10 mL Daily hr, Route: + folic IV, Dosing acid IV 1 Weight mg Daily + 84.091 kg, thiamine IV Total 5 Volume: 1,000, Start date: 02/10/21 1:42:00 CDT, Duration: 1 doses or times, Stop date: 02/10/21 14:59:00 CDT, BSA: 2.01 m2, 0 Ondansetron No Notes: Sherman timbo 8-20 (Same as: l 06:42: [place]) Ran MEDICATION WASTE Product Size: 4 mg Product Wasted: ___ mg Sodium No 984.8 mL, [facility] Chloride 8-20 Rate: 75 l 0.9% IV 06:42: ml/hr, [place] 984.8 mL + 00 Infuse M.V.I.-12 over: 13.3 10 mL Daily hr, Route: + folic IV, Dosing acid IV 1 Weight mg Daily + 84.091 kg, thiamine IV Total 5 Volume: 1,000, Start date: 02/10/21 1:42:00 CDT, Duration: 1 doses or times, Stop date: 02/10/21 14:59:00 CDT, BSA: 2.01 m2, 0 Ondansetron 0 No Notes: Sherman timbo 8-20 (Same as: l 06:42: [place]) Ran MEDICATION WASTE Product Size: 4 mg Product Wasted: ___ mg Sodium 0 No 984.8 mL, [facility] Chloride 8-20 Rate: 75 l 0.9% IV 06:42: ml/hr, [place] 984.8 mL + 00 Infuse M.V.I.-12 over: 13.3 10 mL Daily hr, Route: + folic IV, Dosing acid IV 1 Weight mg Daily + 84.091 kg, thiamine IV Total 5 Volume: 1,000, Start date: 02/10/21 1:42:00 CDT, Duration: 1 doses or times, Stop date: 02/10/21 14:59:00 CDT, BSA: 2.01 m2, 0 Ondansetron 2020-0 No Notes: Sherman timbo 8-20 (Same as: l 06:42: Zofran) Ran 00 MEDICATION WASTE Product Size: 4 mg Product Wasted: ___ mg Sodium No 984.8 mL, [facility] Chloride 8-20 Rate: 75 l 0.9% IV 06:42: ml/hr, [place] 984.8 mL + 00 Infuse M.V.I.-12 over: 13.3 10 mL Daily hr, Route: + folic IV, Dosing acid IV 1 Weight mg Daily + 84.091 kg, thiamine IV Total 5 Volume: 1,000, Start date: 02/10/21 1:42:00 CDT, Duration: 1 doses or times, Stop date: 02/10/21 14:59:00 CDT, BSA: 2.01 m2, 0 Ondansetron 2020-0 No Notes: Sherman timbo 8-20 (Same as: l 06:42: Zofran) Ran 00 MEDICATION WASTE Product Size: 4 mg Product Wasted: ___ mg Sodium No 984.8 mL, [facility] Chloride 8-20 Rate: 75 l 0.9% IV 06:42: ml/hr, [place] 984.8 mL + 00 Infuse M.V.I.-12 over: 13.3 10 mL Daily hr, Route: + folic IV, Dosing acid IV 1 Weight mg Daily + 84.091 kg, thiamine IV Total 5 Volume: 1,000, Start date: 02/10/21 1:42:00 CDT, Duration: 1 doses or times, Stop date: 02/10/21 14:59:00 CDT, BSA: 2.01 m2, 0 Ondansetron 2020-0 No Notes: Sherman timbo 8-20 (Same as: l 06:42: Zofran) Ran 00 MEDICATION WASTE Product Size: 4 mg Product Wasted: ___ mg Sodium 2021-0 No 984.8 mL, [facility] Chloride 8-20 Rate: 75 l 0.9% IV 06:42: ml/hr, [place] 984.8 mL + 00 Infuse M.V.I.-12 over: 13.3 10 mL Daily hr, Route: + folic IV, Dosing acid IV 1 Weight mg Daily + 84.091 kg, thiamine IV Total 5 Volume: 1,000, Start date: 02/10/21 1:42:00 CDT, Duration: 1 doses or times, Stop date: 02/10/21 14:59:00 CDT, BSA: 2.01 m2, 0 Ondansetron 2020-0 No Notes: Sherman timbo 8-20 (Same as: l 06:42: Zofran) Ran 00 MEDICATION WASTE Product Size: 4 mg Product Wasted: ___ mg Ondansetron 2020-0 No Notes: Sherman timbo 8-20 (Same as: l 06:42: Zofran) Ran 00 MEDICATION WASTE Product Size: 4 mg Product Wasted: ___ mg Sodium 2020-0 No 984.8 mL, [facility] Chloride 8-20 Rate: 75 l 0.9% IV 06:42: ml/hr, [place] 984.8 mL + 00 Infuse M.V.I.-12 over: 13.3 10 mL Daily hr, Route: + folic IV, Dosing acid IV 1 Weight mg Daily + 84.091 kg, thiamine IV Total 5 Volume: 1,000, Start date: 02/10/21 1:42:00 CDT, Duration: 1 doses or times, Stop date: 02/10/21 14:59:00 CDT, BSA: 2.01 m2, 0 Sodium 2021-0 No 984.8 mL, [facility] Chloride 8-20 Rate: 75 l 0.9% IV 06:42: ml/hr, [place] 984.8 mL + 00 Infuse M.V.I.-12 over: 13.3 10 mL Daily hr, Route: + folic IV, Dosing acid IV 1 Weight mg Daily + 84.091 kg, thiamine IV Total 5 Volume: 1,000, Start date: 02/10/21 1:42:00 CDT, Duration: 1 doses or times, Stop date: 02/10/21 14:59:00 CDT, BSA: 2.01 m2, 0 Ondansetron 2020-0 No Notes: Sherman timbo 8-20 (Same as: l 06:42: [place]) Ran MEDICATION WASTE Product Size: 4 mg Product Wasted: ___ mg Sodium 2020-0 No 984.8 mL, [facility] Chloride 8-20 Rate: 75 l 0.9% IV 06:42: ml/hr, [place] 984.8 mL + 00 Infuse M.V.I.-12 over: 13.3 10 mL Daily hr, Route: + folic IV, Dosing acid IV 1 Weight mg Daily + 84.091 kg, thiamine IV Total 5 Volume: 1,000, Start date: 02/10/21 1:42:00 CDT, Duration: 1 doses or times, Stop date: 02/10/21 14:59:00 CDT, BSA: 2.01 m2, 0 Ondansetron 2020-0 No Notes: Sherman timbo 8-20 (Same as: l 06:42: [place]) Ran 00 MEDICATION WASTE Product Size: 4 mg Product Wasted: ___ mg Sodium 2020-0 No 984.8 mL, [facility] a Chloride 8-20 Rate: 75 l 0.9% IV 06:42: ml/hr, [place] 984.8 mL + 00 Infuse M.V.I.-12 over: 13.3 10 mL Daily hr, Route: + folic IV, Dosing acid IV 1 Weight mg Daily + 84.091 kg, thiamine IV Total 5 Volume: 1,000, Start date: 02/10/21 1:42:00 CDT, Duration: 1 doses or times, Stop date: 02/10/21 14:59:00 CDT, BSA: 2.01 m2, 0 Ondansetron 2020-0 No Notes: Sherman timbo 8-20 (Same as: l 06:42: [place]) Ran MEDICATION WASTE Product Size: 4 mg Product Wasted: ___ mg Sodium 2020-0 No 984.8 mL, [facility] Chloride 8-20 Rate: 75 l 0.9% IV 06:42: ml/hr, [place] 984.8 mL + 00 Infuse M.V.I.-12 over: 13.3 10 mL Daily hr, Route: + folic IV, Dosing acid IV 1 Weight mg Daily + 84.091 kg, thiamine IV Total 5 Volume: 1,000, Start date: 02/10/21 1:42:00 CDT, Duration: 1 doses or times, Stop date: 02/10/21 14:59:00 CDT, BSA: 2.01 m2, 0 Ondansetron 2020-0 No Notes: Sherman timbo 8-20 (Same as: l 06:42: Zofran) Ran 00 MEDICATION WASTE Product Size: 4 mg Product Wasted: ___ mg Sodium No 984.8 mL, [facility] [place]lor[place] 8-20 Rate: 75 l 0.9% IV 06:42: ml/hr, [place] 984.8 mL + 00 Infuse M.V.I.-12 over: 13.3 10 mL Daily hr, Route: + folic IV, Dosing acid IV 1 Weight mg Daily + 84.091 kg, thiamine IV Total 5 Volume: 1,000, Start date: 02/10/21 1:42:00 CDT, Duration: 1 doses or times, Stop date: 02/10/21 14:59:00 CDT, BSA: 2.01 m2, 0 Ondansetron 2020-0 No Notes: Sherman timbo 8-20 (Same as: l 06:42: Zofran) Ran 00 MEDICATION WASTE Product Size: 4 mg Product Wasted: ___ mg Sodium 0 No 984.8 mL, [facility] Chloride 8-20 Rate: 75 l 0.9% IV 06:42: ml/hr, [place] 984.8 mL + 00 Infuse M.V.I.-12 over: 13.3 10 mL Daily hr, Route: + folic IV, Dosing acid IV 1 Weight mg Daily + 84.091 kg, thiamine IV Total 5 Volume: 1,000, Start date: 02/10/21 1:42:00 CDT, Duration: 1 doses or times, Stop date: 02/10/21 14:59:00 CDT, BSA: 2.01 m2, 0 Ondansetron 2020-0 No Notes: Sherman timbo 8-20 (Same as: l 06:42: [place]) Ran 00 MEDICATION WASTE Product Size: 4 mg Product Wasted: ___ mg Sodium 2020-0 No 984.8 mL, [facility] a Chloride 8-20 Rate: 75 l 0.9% IV 06:42: ml/hr, [place] 984.8 mL + 00 Infuse M.V.I.-12 over: 13.3 10 mL Daily hr, Route: + folic IV, Dosing acid IV 1 Weight mg Daily + 84.091 kg, thiamine IV Total 5 Volume: 1,000, Start date: 02/10/21 1:42:00 CDT, Duration: 1 doses or times, Stop date: 02/10/21 14:59:00 CDT, BSA: 2.01 m2, 0 Ondansetron 2020-0 No Notes: Sherman timbo 8-20 (Same as: l 06:42: [place]) Ran 00 MEDICATION WASTE Product Size: 4 mg Product Wasted: ___ mg Sodium 2020-0 No 984.8 mL, [facility] [place]loride 8-20 Rate: 75 l 0.9% IV 06:42: ml/hr, [place] 984.8 mL + 00 Infuse M.V.I.-12 over: 13.3 10 mL Daily hr, Route: + folic IV, Dosing acid IV 1 Weight mg Daily + 84.091 kg, thiamine IV Total 5 Volume: 1,000, Start date: 02/10/21 1:42:00 CDT, Duration: 1 doses or times, Stop date: 02/10/21 14:59:00 CDT, BSA: 2.01 m2, 0 Ondansetron 2020-0 No Notes: Sherman timbo 8-20 (Same as: apoorva 06:42: [place]) Ran 00 MEDICATION WASTE Product Size: 4 mg Product Wasted: ___ mg Sodium 2020-0 No 984.8 mL, [facility] a Chloride 8-20 Rate: 75 l 0.9% IV 06:42: ml/hr, [place] 984.8 mL + 00 Infuse M.V.I.-12 over: 13.3 10 mL Daily hr, Route: + folic IV, Dosing acid IV 1 Weight mg Daily + 84.091 kg, thiamine IV Total 5 Volume: 1,000, Start date: 02/10/21 1:42:00 CDT, Duration: 1 doses or times, Stop date: 02/10/21 14:59:00 CDT, BSA: 2.01 m2, 0 Ondansetron 2020-0 No Notes: Sherman timbo 8-20 (Same as: l 06:42: Zofran) Ran MEDICATION WASTE Product Size: 4 mg Product Wasted: ___ mg Sodium No 984.8 mL, [facility] a Chloride 8-20 Rate: 75 l 0.9% IV 06:42: ml/hr, [place] 984.8 mL + 00 Infuse M.V.I.-12 over: 13.3 10 mL Daily hr, Route: + folic IV, Dosing acid IV 1 Weight mg Daily + 84.091 kg, thiamine IV Total 5 Volume: 1,000, Start date: 02/10/21 1:42:00 CDT, Duration: 1 doses or times, Stop date: 02/10/21 14:59:00 CDT, BSA: 2.01 m2, 0 Ondansetron 2020-0 No Notes: Sherman timbo 8-20 (Same as: l 06:42: [place]) Ran MEDICATION WASTE Product Size: 4 mg Product Wasted: ___ mg Sodium 0 No 984.8 mL, [facility] Chloride 8-20 Rate: 75 l 0.9% IV 06:42: ml/hr, [place] 984.8 mL + 00 Infuse M.V.I.-12 over: 13.3 10 mL Daily hr, Route: + folic IV, Dosing acid IV 1 Weight mg Daily + 84.091 kg, thiamine IV Total 5 Volume: 1,000, Start date: 02/10/21 1:42:00 CDT, Duration: 1 doses or times, Stop date: 02/10/21 14:59:00 CDT, BSA: 2.01 m2, 0 Ondansetron 2020-0 No Notes: [place] timbo 8-20 (Same as: l 06:42: Zofran) Ran 00 MEDICATION WASTE Product Size: 4 mg Product Wasted: ___ mg Sodium No 984.8 mL, [facility] Chloride 8-20 Rate: 75 l 0.9% IV 06:42: ml/hr, [place] 984.8 mL + 00 Infuse M.V.I.-12 over: 13.3 10 mL Daily hr, Route: + folic IV, Dosing acid IV 1 Weight mg Daily + 84.091 kg, thiamine IV Total 5 Volume: 1,000, Start date: 02/10/21 1:42:00 CDT, Duration: 1 doses or times, Stop date: 02/10/21 14:59:00 CDT, BSA: 2.01 m2, 0 Ondansetron 2020-0 No Notes: [place] timbo 8-20 (Same as: l 06:42: Zofran) Ran 00 MEDICATION WASTE Product Size: 4 mg Product Wasted: ___ mg Sodium No 984.8 mL, [facility] a Chloride 8-20 Rate: 75 l 0.9% IV 06:42: ml/hr, [place] 984.8 mL + 00 Infuse M.V.I.-12 over: 13.3 10 mL Daily hr, Route: + folic IV, Dosing acid IV 1 Weight mg Daily + 84.091 kg, thiamine IV Total 5 Volume: 1,000, Start date: 02/10/21 1:42:00 CDT, Duration: 1 doses or times, Stop date: 02/10/21 14:59:00 CDT, BSA: 2.01 m2, 0 Ondansetron 2020-0 No Notes: Sherman timbo 8-20 (Same as: l 06:42: Zofran) Ran 00 MEDICATION WASTE Product Size: 4 mg Product Wasted: ___ mg Sodium No 984.8 mL, [facility] a Chloride 8-20 Rate: 75 l 0.9% IV 06:42: ml/hr, [place] 984.8 mL + 00 Infuse M.V.I.-12 over: 13.3 10 mL Daily hr, Route: + folic IV, Dosing acid IV 1 Weight mg Daily + 84.091 kg, thiamine IV Total 5 Volume: 1,000, Start date: 02/10/21 1:42:00 CDT, Duration: 1 doses or times, Stop date: 02/10/21 14:59:00 CDT, BSA: 2.01 m2, 0 Ondansetron 2020-0 No Notes: Sherman timbo 8-20 (Same as: l 06:42: Chilo) Ran 00 MEDICATION WASTE Product Size: 4 mg Product Wasted: ___ mg Sodium 2020-0 No 984.8 mL, Memori a Chloride 8-20 Rate: 75 l 0.9% IV 06:42: ml/hr, Ran 984.8 mL + 00 Infuse M.V.I.-12 over: 13.3 10 mL Daily hr, Route: + folic IV, Dosing acid IV 1 Weight mg Daily + 84.091 kg, thiamine IV Total 5 Volume: 1,000, Start date: 02/10/21 1:42:00 CDT, Duration: 1 doses or times, Stop date: 02/10/21 14:59:00 CDT, BSA: 2.01 m2, 0 Ondansetron 2020-0 No Notes: Sherman timbo 8-20 (Same as: apoorva 06:42: Chilo) Ran 00 MEDICATION WASTE Product Size: 4 mg Product Wasted: ___ mg Sodium 2021-0 No 984.8 mL, Memori a Chloride 8-20 Rate: 75 l 0.9% IV 06:42: ml/hr, Ran 984.8 mL + 00 Infuse M.V.I.-12 over: 13.3 10 mL Daily hr, Route: + folic IV, Dosing acid IV 1 Weight mg Daily + 84.091 kg, thiamine IV Total 5 Volume: 1,000, Start date: 02/10/21 1:42:00 CDT, Duration: 1 doses or times, Stop date: 02/10/21 14:59:00 CDT, BSA: 2.01 m2, 0 Sodium 1-0 No 250 mL, Memoria Chloride 8-20 Rate: To l 0.9% 06:30: prime line Ran (titrate) 00 and flush 250 mL remaining blood products., Dosing Weight 84.091, kg, Route: IV, Total Volume: 250, Start Date: 02/10/21 1:30:00 CDT, Duration: 1 day, Stop date: 02/11/21 1:29:00 CDT, Replace Every: 24 hr, 0 Sodium 2021-0 No 250 mL, Memoria Chloride 8-20 Rate: To l 0.9% 06:30: prime line [place] (titrate) 00 and flush 250 mL remaining blood products., Dosing Weight 84.091, kg, Route: IV, Total Volume: 250, Start Date: 02/10/21 1:30:00 CDT, Duration: 1 day, Stop date: 02/11/21 1:29:00 CDT, Replace Every: 24 hr, 0 Sodium 2021-0 No 250 mL, Memoria Chloride 8-20 Rate: To l 0.9% 06:30: prime line [place] (titrate) 00 and flush 250 mL remaining blood products., Dosing Weight 84.091, kg, Route: IV, Total Volume: 250, Start Date: 02/10/21 1:30:00 CDT, Duration: 1 day, Stop date: 02/11/21 1:29:00 CDT, Replace Every: 24 hr, 0 Sodium 2021-0 No 250 mL, Memoria Chloride 8-20 Rate: To l 0.9% 06:30: prime line Ran (titrate) 00 and flush 250 mL remaining blood products., Dosing Weight 84.091, kg, Route: IV, Total Volume: 250, Start Date: 02/10/21 1:30:00 CDT, Duration: 1 day, Stop date: 02/11/21 1:29:00 CDT, Replace Every: 24 hr, 0 Sodium 2021-0 No 250 mL, Memoria Chloride 8-20 Rate: To l 0.9% 06:30: prime line Ran (titrate) 00 and flush 250 mL remaining blood products., Dosing Weight 84.091, kg, Route: IV, Total Volume: 250, Start Date: 02/10/21 1:30:00 CDT, Duration: 1 day, Stop date: 02/11/21 1:29:00 CDT, Replace Every: 24 hr, 0 Sodium 2021-0 No 250 mL, Memoria Chloride 8-20 Rate: To l 0.9% 06:30: prime line [place] (titrate) 00 and flush 250 mL remaining blood products., Dosing Weight 84.091, kg, Route: IV, Total Volume: 250, Start Date: 02/10/21 1:30:00 CDT, Duration: 1 day, Stop date: 02/11/21 1:29:00 CDT, Replace Every: 24 hr, 0 Sodium 2021-0 No 250 mL, Memoria Chloride 8-20 Rate: To l 0.9% 06:30: prime line Ran (titrate) 00 and flush 250 mL remaining blood products., Dosing Weight 84.091, kg, Route: IV, Total Volume: 250, Start Date: 02/10/21 1:30:00 CDT, Duration: 1 day, Stop date: 02/11/21 1:29:00 CDT, Replace Every: 24 hr, 0 Sodium 2021-0 No 250 mL, [facility] Chloride 8-20 Rate: To l 0.9% 06:30: prime line [place] (titrate) 00 and flush 250 mL remaining blood products., Dosing Weight 84.091, kg, Route: IV, Total Volume: 250, Start Date: 02/10/21 1:30:00 CDT, Duration: 1 day, Stop date: 02/11/21 1:29:00 CDT, Replace Every: 24 hr, 0 Sodium 2021-0 No 250 mL, [facility] Chloride 8-20 Rate: To l 0.9% 06:30: prime line [place] (titrate) 00 and flush 250 mL remaining blood products., Dosing Weight 84.091, kg, Route: IV, Total Volume: 250, Start Date: 02/10/21 1:30:00 CDT, Duration: 1 day, Stop date: 02/11/21 1:29:00 CDT, Replace Every: 24 hr, 0 Sodium 2021-0 No 250 mL, [facility] Chloride 8-20 Rate: To l 0.9% 06:30: prime line Ran (titrate) 00 and flush 250 mL remaining blood products., Dosing Weight 84.091, kg, Route: IV, Total Volume: 250, Start Date: 02/10/21 1:30:00 CDT, Duration: 1 day, Stop date: 02/11/21 1:29:00 CDT, Replace Every: 24 hr, 0 Sodium 2021-0 No 250 mL, [facility] Chloride 8-20 Rate: To l 0.9% 06:30: prime line [place] (titrate) 00 and flush 250 mL remaining blood products., Dosing Weight 84.091, kg, Route: IV, Total Volume: 250, Start Date: 02/10/21 1:30:00 CDT, Duration: 1 day, Stop date: 02/11/21 1:29:00 CDT, Replace Every: 24 hr, 0 Sodium 2021-0 No 250 mL, [facility] Chloride 8-20 Rate: To l 0.9% 06:30: prime line [place] (titrate) 00 and flush 250 mL remaining blood products., Dosing Weight 84.091, kg, Route: IV, Total Volume: 250, Start Date: 02/10/21 1:30:00 CDT, Duration: 1 day, Stop date: 02/11/21 1:29:00 CDT, Replace Every: 24 hr, 0 Sodium 2021-0 No 250 mL, [facility] Chloride 8-20 Rate: To l 0.9% 06:30: prime line [place] (titrate) 00 and flush 250 mL remaining blood products., Dosing Weight 84.091, kg, Route: IV, Total Volume: 250, Start Date: 02/10/21 1:30:00 CDT, Duration: 1 day, Stop date: 02/11/21 1:29:00 CDT, Replace Every: 24 hr, 0 Sodium 2021-0 No 250 mL, [facility] Chloride 8-20 Rate: To l 0.9% 06:30: prime line [place] (titrate) 00 and flush 250 mL remaining blood products., Dosing Weight 84.091, kg, Route: IV, Total Volume: 250, Start Date: 02/10/21 1:30:00 CDT, Duration: 1 day, Stop date: 02/11/21 1:29:00 CDT, Replace Every: 24 hr, 0 Sodium 2021-0 No 250 mL, [facility] Chloride 8-20 Rate: To l 0.9% 06:30: prime line Ran (titrate) 00 and flush 250 mL remaining blood products., Dosing Weight 84.091, kg, Route: IV, Total Volume: 250, Start Date: 02/10/21 1:30:00 CDT, Duration: 1 day, Stop date: 02/11/21 1:29:00 CDT, Replace Every: 24 hr, 0 Sodium 2021-0 No 250 mL, [facility] Chloride 8-20 Rate: To l 0.9% 06:30: prime line [place] (titrate) 00 and flush 250 mL remaining blood products., Dosing Weight 84.091, kg, Route: IV, Total Volume: 250, Start Date: 02/10/21 1:30:00 CDT, Duration: 1 day, Stop date: 02/11/21 1:29:00 CDT, Replace Every: 24 hr, 0 Sodium 2021-0 No 250 mL, [facility] Chloride 8-20 Rate: To l 0.9% 06:30: prime line [place] (titrate) 00 and flush 250 mL remaining blood products., Dosing Weight 84.091, kg, Route: IV, Total Volume: 250, Start Date: 02/10/21 1:30:00 CDT, Duration: 1 day, Stop date: 02/11/21 1:29:00 CDT, Replace Every: 24 hr, 0 Sodium 2021-0 No 250 mL, [facility] Chloride 8-20 Rate: To l 0.9% 06:30: prime line [place] (titrate) 00 and flush 250 mL remaining blood products., Dosing Weight 84.091, kg, Route: IV, Total Volume: 250, Start Date: 02/10/21 1:30:00 CDT, Duration: 1 day, Stop date: 02/11/21 1:29:00 CDT, Replace Every: 24 hr, 0 Sodium 2021-0 No 250 mL, [facility] Chloride 8-20 Rate: To l 0.9% 06:30: prime line [place] (titrate) 00 and flush 250 mL remaining blood products., Dosing Weight 84.091, kg, Route: IV, Total Volume: 250, Start Date: 02/10/21 1:30:00 CDT, Duration: 1 day, Stop date: 02/11/21 1:29:00 CDT, Replace Every: 24 hr, 0 Sodium 2021-0 No 250 mL, [facility] Chloride 8-20 Rate: To l 0.9% 06:30: prime line [place] (titrate) 00 and flush 250 mL remaining blood products., Dosing Weight 84.091, kg, Route: IV, Total Volume: 250, Start Date: 02/10/21 1:30:00 CDT, Duration: 1 day, Stop date: 02/11/21 1:29:00 CDT, Replace Every: 24 hr, 0 Sodium 2021-0 No 250 mL, [facility] Chloride 8-20 Rate: To l 0.9% 06:30: prime line [place] (titrate) 00 and flush 250 mL remaining blood products., Dosing Weight 84.091, kg, Route: IV, Total Volume: 250, Start Date: 02/10/21 1:30:00 CDT, Duration: 1 day, Stop date: 02/11/21 1:29:00 CDT, Replace Every: 24 hr, 0 Sodium 2021-0 No 250 mL, [facility] Chloride 8-20 Rate: To l 0.9% 06:30: prime line [place] (titrate) 00 and flush 250 mL remaining blood products., Dosing Weight 84.091, kg, Route: IV, Total Volume: 250, Start Date: 02/10/21 1:30:00 CDT, Duration: 1 day, Stop date: 02/11/21 1:29:00 CDT, Replace Every: 24 hr, 0 Sodium 2021-0 No 250 mL, [facility] Chloride 8-20 Rate: To l 0.9% 06:30: prime line Ran (titrate) 00 and flush 250 mL remaining blood products., Dosing Weight 84.091, kg, Route: IV, Total Volume: 250, Start Date: 02/10/21 1:30:00 CDT, Duration: 1 day, Stop date: 02/11/21 1:29:00 CDT, Replace Every: 24 hr, 0 Sodium 2021-0 No 250 mL, [facility] Chloride 8-20 Rate: To l 0.9% 06:30: prime line [place] (titrate) 00 and flush 250 mL remaining blood products., Dosing Weight 84.091, kg, Route: IV, Total Volume: 250, Start Date: 02/10/21 1:30:00 CDT, Duration: 1 day, Stop date: 02/11/21 1:29:00 CDT, Replace Every: 24 hr, 0 Sodium 2021-0 No 250 mL, [facility] Chloride 8-20 Rate: To l 0.9% 06:30: prime line [place] (titrate) 00 and flush 250 mL remaining blood products., Dosing Weight 84.091, kg, Route: IV, Total Volume: 250, Start Date: 02/10/21 1:30:00 CDT, Duration: 1 day, Stop date: 02/11/21 1:29:00 CDT, Replace Every: 24 hr, 0 Sodium 2021-0 No 250 mL, [facility] Chloride 8-20 Rate: To l 0.9% 06:30: prime line [place] (titrate) 00 and flush 250 mL remaining blood products., Dosing Weight 84.091, kg, Route: IV, Total Volume: 250, Start Date: 02/10/21 1:30:00 CDT, Duration: 1 day, Stop date: 02/11/21 1:29:00 CDT, Replace Every: 24 hr, 0 Sodium 2021-0 No 250 mL, [facility] Chloride 8-20 Rate: To l 0.9% 06:30: prime line [place] (titrate) 00 and flush 250 mL remaining blood products., Dosing Weight 84.091, kg, Route: IV, Total Volume: 250, Start Date: 02/10/21 1:30:00 CDT, Duration: 1 day, Stop date: 02/11/21 1:29:00 CDT, Replace Every: 24 hr, 0 Sodium 2021-0 No 250 mL, [facility] Chloride 8-20 Rate: To l 0.9% 06:30: prime line [place] (titrate) 00 and flush 250 mL remaining blood products., Dosing Weight 84.091, kg, Route: IV, Total Volume: 250, Start Date: 02/10/21 1:30:00 CDT, Duration: 1 day, Stop date: 02/11/21 1:29:00 CDT, Replace Every: 24 hr, 0 Sodium 2021-0 No 250 mL, [facility] Chloride 8-20 Rate: To l 0.9% 06:30: prime line [place] (titrate) 00 and flush 250 mL remaining blood products., Dosing Weight 84.091, kg, Route: IV, Total Volume: 250, Start Date: 02/10/21 1:30:00 CDT, Duration: 1 day, Stop date: 02/11/21 1:29:00 CDT, Replace Every: 24 hr, 0 Sodium 2021-0 No 250 mL, [facility] Chloride 8-20 Rate: To l 0.9% 06:30: prime line [place] (titrate) 00 and flush 250 mL remaining blood products., Dosing Weight 84.091, kg, Route: IV, Total Volume: 250, Start Date: 02/10/21 1:30:00 CDT, Duration: 1 day, Stop date: 02/11/21 1:29:00 CDT, Replace Every: 24 hr, 0 Sodium 2021-0 No 250 mL, [facility] Chloride 8-20 Rate: To l 0.9% 06:30: prime line [place] (titrate) 00 and flush 250 mL remaining blood products., Dosing Weight 84.091, kg, Route: IV, Total Volume: 250, Start Date: 02/10/21 1:30:00 CDT, Duration: 1 day, Stop date: 02/11/21 1:29:00 CDT, Replace Every: 24 hr, 0 Sodium 2021-0 No 250 mL, [facility] Chloride 8-20 Rate: To l 0.9% 06:30: prime line [place] (titrate) 00 and flush 250 mL remaining blood products., Dosing Weight 84.091, kg, Route: IV, Total Volume: 250, Start Date: 02/10/21 1:30:00 CDT, Duration: 1 day, Stop date: 02/11/21 1:29:00 CDT, Replace Every: 24 hr, 0 Sodium 2021-0 No 250 mL, [facility] Chloride 8-20 Rate: To l 0.9% 06:30: prime line [place] (titrate) 00 and flush 250 mL remaining blood products., Dosing Weight 84.091, kg, Route: IV, Total Volume: 250, Start Date: 02/10/21 1:30:00 CDT, Duration: 1 day, Stop date: 02/11/21 1:29:00 CDT, Replace Every: 24 hr, 0 Sodium 2021-0 No 250 mL, [facility] Chloride 8-20 Rate: To l 0.9% 06:30: prime line [place] (titrate) 00 and flush 250 mL remaining blood products., Dosing Weight 84.091, kg, Route: IV, Total Volume: 250, Start Date: 02/10/21 1:30:00 CDT, Duration: 1 day, Stop date: 02/11/21 1:29:00 CDT, Replace Every: 24 hr, 0 Sodium 2021-0 No 250 mL, [facility] Chloride 8-20 Rate: To l 0.9% 06:30: prime line [place] (titrate) 00 and flush 250 mL remaining blood products., Dosing Weight 84.091, kg, Route: IV, Total Volume: 250, Start Date: 02/10/21 1:30:00 CDT, Duration: 1 day, Stop date: 02/11/21 1:29:00 CDT, Replace Every: 24 hr, 0 Sodium 2021-0 No 250 mL, [facility] Chloride 8-20 Rate: To l 0.9% 06:30: prime line [place] (titrate) 00 and flush 250 mL remaining blood products., Dosing Weight 84.091, kg, Route: IV, Total Volume: 250, Start Date: 02/10/21 1:30:00 CDT, Duration: 1 day, Stop date: 02/11/21 1:29:00 CDT, Replace Every: 24 hr, 0 Sodium 2021-0 No 250 mL, [facility] Chloride 8-20 Rate: To l 0.9% 06:30: prime line [place] (titrate) 00 and flush 250 mL remaining blood products., Dosing Weight 84.091, kg, Route: IV, Total Volume: 250, Start Date: 02/10/21 1:30:00 CDT, Duration: 1 day, Stop date: 02/11/21 1:29:00 CDT, Replace Every: 24 hr, 0 Sodium 2021-0 No 250 mL, [facility] Chloride 8-20 Rate: To l 0.9% 06:30: prime line [place] (titrate) 00 and flush 250 mL remaining blood products., Dosing Weight 84.091, kg, Route: IV, Total Volume: 250, Start Date: 02/10/21 1:30:00 CDT, Duration: 1 day, Stop date: 02/11/21 1:29:00 CDT, Replace Every: 24 hr, 0 Sodium 2021-0 No 250 mL, [facility] Chloride 8-20 Rate: To l 0.9% 06:30: prime line [place] (titrate) 00 and flush 250 mL remaining blood products., Dosing Weight 84.091, kg, Route: IV, Total Volume: 250, Start Date: 02/10/21 1:30:00 CDT, Duration: 1 day, Stop date: 02/11/21 1:29:00 CDT, Replace Every: 24 hr, 0 Sodium 2021-0 No 250 mL, [facility] Chloride 8-20 Rate: To l 0.9% 06:30: prime line [place] (titrate) 00 and flush 250 mL remaining blood products., Dosing Weight 84.091, kg, Route: IV, Total Volume: 250, Start Date: 02/10/21 1:30:00 CDT, Duration: 1 day, Stop date: 02/11/21 1:29:00 CDT, Replace Every: 24 hr, 0 Sodium 2021-0 No 250 mL, [facility] Chloride 8-20 Rate: To l 0.9% 06:30: prime line [place] (titrate) 00 and flush 250 mL remaining blood products., Dosing Weight 84.091, kg, Route: IV, Total Volume: 250, Start Date: 02/10/21 1:30:00 CDT, Duration: 1 day, Stop date: 02/11/21 1:29:00 CDT, Replace Every: 24 hr, 0 Protonix 2020-0 No Notes: For [facility] 8-20 IV push l 05:27: reconstitu Ran 00 te with 10 ml 0.9% sodium chloride and push over 2 minutes. (Same as: Protonix) Protonix 2020-0 No Notes: For [facility] 8-20 IV push l 05:27: reconstitu [place] 00 te with 10 ml 0.9% sodium chloride and push over 2 minutes. (Same as: Protonix) Protonix No Notes: For [facility] 8-20 IV push l 05:27: reconstitu [place] 00 te with 10 ml 0.9% sodium chloride and push over 2 minutes. (Same as: Protonix) Protonix No Notes: For [facility] 8-20 IV push l 05:27: reconstitu [place] 00 te with 10 ml 0.9% sodium chloride and push over 2 minutes. (Same as: Protonix) Protonix No Notes: For [facility] 8-20 IV push l 05:27: reconstitu Ran 00 te with 10 ml 0.9% sodium chloride and push over 2 minutes. (Same as: Protonix) Protonix No Notes: For [facility] 8-20 IV push l 05:27: reconstitu Ran 00 te with 10 ml 0.9% sodium chloride and push over 2 minutes. (Same as: Protonix) Protonix No Notes: For [facility] 8-20 IV push l 05:27: reconstitu [place] 00 te with 10 ml 0.9% sodium chloride and push over 2 minutes. (Same as: Protonix) Protonix No Notes: For [facility] 8-20 IV push l 05:27: reconstitu Ran 00 te with 10 ml 0.9% sodium chloride and push over 2 minutes. (Same as: Protonix) Protonix No Notes: For [facility] 8-20 IV push l 05:27: reconstitu [place] 00 te with 10 ml 0.9% sodium chloride and push over 2 minutes. (Same as: Protonix) Protonix No Notes: For [facility] 8-20 IV push l 05:27: reconstitu [place] 00 te with 10 ml 0.9% sodium chloride and push over 2 minutes. (Same as: Protonix) Protonix No Notes: For [facility] 8-20 IV push l 05:27: reconstitu [place] 00 te with 10 ml 0.9% sodium chloride and push over 2 minutes. (Same as: Protonix) Protonix No Notes: For [facility] 8-20 IV push l 05:27: reconstitu [place] 00 te with 10 ml 0.9% sodium chloride and push over 2 minutes. (Same as: Protonix) Protonix No Notes: For [facility] 8-20 IV push l 05:27: reconstitu [place] 00 te with 10 ml 0.9% sodium chloride and push over 2 minutes. (Same as: Protonix) Protonix No Notes: For [facility] 8-20 IV push l 05:27: reconstitu [place] 00 te with 10 ml 0.9% sodium chloride and push over 2 minutes. (Same as: Protonix) Protonix No Notes: For [facility] 8-20 IV push l 05:27: reconstitu [place] 00 te with 10 ml 0.9% sodium chloride and push over 2 minutes. (Same as: Protonix) Protonix No Notes: For [facility] 8-20 IV push l 05:27: reconstitu [place] 00 te with 10 ml 0.9% sodium chloride and push over 2 minutes. (Same as: Protonix) Protonix No Notes: For [facility] 8-20 IV push l 05:27: reconstitu [place] 00 te with 10 ml 0.9% sodium chloride and push over 2 minutes. (Same as: Protonix) Protonix No Notes: For [facility] 8-20 IV push l 05:27: reconstitu [place] 00 te with 10 ml 0.9% sodium chloride and push over 2 minutes. (Same as: Protonix) Protonix No Notes: For [facility] 8-20 IV push l 05:27: reconstitu Ran 00 te with 10 ml 0.9% sodium chloride and push over 2 minutes. (Same as: Protonix) Protonix No Notes: For [facility] 8-20 IV push l 05:27: reconstitu [place] 00 te with 10 ml 0.9% sodium chloride and push over 2 minutes. (Same as: Protonix) Protonix No Notes: For [facility] 8-20 IV push l 05:27: reconstitu [place] 00 te with 10 ml 0.9% sodium chloride and push over 2 minutes. (Same as: Protonix) Protonix No Notes: For [facility] 8-20 IV push l 05:27: reconstitu [place] 00 te with 10 ml 0.9% sodium chloride and push over 2 minutes. (Same as: Protonix) Protonix No Notes: For [facility] 8-20 IV push l 05:27: reconstitu Ran 00 te with 10 ml 0.9% sodium chloride and push over 2 minutes. (Same as: Protonix) Protonix No Notes: For [facility] 8-20 IV push l 05:27: reconstitu Ran 00 te with 10 ml 0.9% sodium chloride and push over 2 minutes. (Same as: Protonix) Protonix No Notes: For [facility] 8-20 IV push l 05:27: reconstitu [place] 00 te with 10 ml 0.9% sodium chloride and push over 2 minutes. (Same as: Protonix) Protonix No Notes: For [facility] 8-20 IV push l 05:27: reconstitu Ran 00 te with 10 ml 0.9% sodium chloride and push over 2 minutes. (Same as: Protonix) Protonix No Notes: For [facility] 8-20 IV push l 05:27: reconstitu [place] 00 te with 10 ml 0.9% sodium chloride and push over 2 minutes. (Same as: Protonix) Protonix No Notes: For [facility] 8-20 IV push l 05:27: reconstitu [place] 00 te with 10 ml 0.9% sodium chloride and push over 2 minutes. (Same as: Protonix) Protonix No Notes: For [facility] 8-20 IV push l 05:27: reconstitu Ran 00 te with 10 ml 0.9% sodium chloride and push over 2 minutes. (Same as: Protonix) Protonix No Notes: For [facility] 8-20 IV push l 05:27: reconstitu [place] 00 te with 10 ml 0.9% sodium chloride and push over 2 minutes. (Same as: Protonix) Protonix No Notes: For [facility] 8-20 IV push l 05:27: reconstitu [place] 00 te with 10 ml 0.9% sodium chloride and push over 2 minutes. (Same as: Protonix) Protonix 0 No Notes: For [facility] 8-20 IV push l 05:27: reconstitu Ran 00 te with 10 ml 0.9% sodium chloride and push over 2 minutes. (Same as: Protonix) Protonix No Notes: For [facility] 8-20 IV push l 05:27: reconstitu [place] 00 te with 10 ml 0.9% sodium chloride and push over 2 minutes. (Same as: Protonix) Protonix No Notes: For [facility] 8-20 IV push l 05:27: reconstitu [place] 00 te with 10 ml 0.9% sodium chloride and push over 2 minutes. (Same as: Protonix) Protonix No Notes: For [facility] 8-20 IV push l 05:27: reconstitu Ran 00 te with 10 ml 0.9% sodium chloride and push over 2 minutes. (Same as: Protonix) Protonix No Notes: For [facility] 8-20 IV push l 05:27: reconstitu Ran 00 te with 10 ml 0.9% sodium chloride and push over 2 minutes. (Same as: Protonix) Protonix No Notes: For [facility] 8-20 IV push l 05:27: reconstitu [place] 00 te with 10 ml 0.9% sodium chloride and push over 2 minutes. (Same as: Protonix) Protonix No Notes: For [facility] 8-20 IV push l 05:27: reconstitu [place] 00 te with 10 ml 0.9% sodium chloride and push over 2 minutes. (Same as: Protonix) Protonix No Notes: For [facility] 8-20 IV push l 05:27: reconstitu Ran 00 te with 10 ml 0.9% sodium chloride and push over 2 minutes. (Same as: Protonix) Protonix No Notes: For [facility] 8-20 IV push l 05:27: reconstitu [place] 00 te with 10 ml 0.9% sodium chloride and push over 2 minutes. (Same as: Protonix) Protonix No Notes: For [facility] 8-20 IV push l 05:27: reconstitu [place] 00 te with 10 ml 0.9% sodium chloride and push over 2 minutes. (Same as: Protonix) iopamidol 2020- No [id number] 100mL 100 mL, [facility] (ISOVUE 02-06 Intravenou ity o f 370-500 mL) 06:00: 04:45 s, ONCE, 1 [place] injection 00 :00 dose, Mon Medic al 100 mL 02/06/21 at [place] 0100, Routine pantoprazol 2020- No 40mg 40 mg, Uni vers e 02-06 Slow IV ity of (PROTONIX) 04:45: 03:51 Push, [place] injection 00 :00 ONCE, 1 Medical 40 mg dose, [facility] 02/05/21 at 2345 ondansetron 2020- No 4mg 4 mg, Slow [facility] (ZOFRAN 02-06 IV Push, ity of (PF)) 04:45: 03:50 ONCE, 1 [place] injection 4 00 :00 dose, [facility] mg 02/05/21 at [facility] 2345, ARIADNE FENTanyl PF 2020- No 50ug 50 mcg, Un urmila (SUBLIMAZE 02-06 Slow IV ity o f (PF)) 04:45: 03:52 Push, [place] injection 00 :00 ONCE, 1 Medical 50 mcg dose, [facility] 02/05/21 at 2345, Routine sodium Yes 5mL 5 mL, [facility] chloride 02-06 Intravenou ity o f (NS) 03:15: s, PRN, [place] injection 5 32 Starting Medi elder mL [facility] 02/05/21 at 2215, Until Discontinu ed, Routine, IV line flushing Aspirin 81 No 81 mg = 1 [facility] - tab, PO, l Coated 12:08: Daily, # Ran Tablet 00 90 tab, 3 Refill(s) Aspirin 81 2020- No 81 mg = 1 [facility] 8- tab, PO, l Coated 12:08: Daily, # [place] Tablet 00 90 tab, 3 Refill(s) Aspirin 81 2020-0 No 81 mg = 1 [facility] 8-09 tab, PO, l Coated 12:08: Daily, # Ran Tablet 00 90 tab, 3 Refill(s) Aspirin 81 2020- No 81 mg = 1 [facility] - tab, PO, l Coated 12:08: Daily, # Ran Tablet 00 90 tab, 3 Refill(s) Aspirin 81 No 81 mg = 1 [facility] 01-30 tab, PO, l Coated 12:08: Daily, # [place] Tablet 00 90 tab, 3 Refill(s) Aspirin 81 0 No 81 mg = 1 [facility] 01-30 tab, PO, l Coated 12:08: Daily, # [place] Tablet 00 90 tab, 3 Refill(s) Aspirin 81 No 81 mg = 1 [facility] 01-30 tab, PO, l Coated 12:08: Daily, # [place] Tablet 00 90 tab, 3 Refill(s) Aspirin 81 No 81 mg = 1 [facility] 01-30 tab, PO, l Coated 12:08: Daily, # Ran Tablet 00 90 tab, 3 Refill(s) Aspirin 81 No 81 mg = 1 [facility] 01-30 tab, PO, l Coated 12:08: Daily, # Ran Tablet 00 90 tab, 3 Refill(s) Aspirin 81 No 81 mg = 1 [facility] 01-30 tab, PO, l Coated 12:08: Daily, # [place] Tablet 00 90 tab, 3 Refill(s) Aspirin 81 No 81 mg = 1 [facility] 01-30 tab, PO, l Coated 12:08: Daily, # [place] Tablet 00 90 tab, 3 Refill(s) Aspirin 81 No 81 mg = 1 [facility] 01-30 tab, PO, l Coated 12:08: Daily, # [place] Tablet 00 90 tab, 3 Refill(s) Aspirin 81 No 81 mg = 1 [facility] 01-30 tab, PO, l Coated 12:08: Daily, # [place] Tablet 00 90 tab, 3 Refill(s) Aspirin 81 2020-0 No 81 mg = 1 [facility] 01-30 tab, PO, l Coated 12:08: Daily, # Ran Tablet 00 90 tab, 3 Refill(s) Aspirin 81 No 81 mg = 1 [facility] 01-30 tab, PO, l Coated 12:08: Daily, # Ran Tablet 00 90 tab, 3 Refill(s) Aspirin 81 No 81 mg = 1 [facility] 01-30 tab, PO, l Coated 12:08: Daily, # Ran Tablet 00 90 tab, 3 Refill(s) Aspirin 81 No 81 mg = 1 [facility] 01-30 tab, PO, l Coated 12:08: Daily, # [place] Tablet 00 90 tab, 3 Refill(s) Aspirin 81 No 81 mg = 1 [facility] 01-30 tab, PO, l Coated 12:08: Daily, # [place] Tablet 00 90 tab, 3 Refill(s) Aspirin 81 No 81 mg = 1 [facility] 01-30 tab, PO, l Coated 12:08: Daily, # [place] Tablet 00 90 tab, 3 Refill(s) Aspirin 81 No 81 mg = 1 [facility] 01-30 tab, PO, l Coated 12:08: Daily, # [place] Tablet 00 90 tab, 3 Refill(s) Aspirin 81 No 81 mg = 1 [facility] 01-30 tab, PO, l Coated 12:08: Daily, # Ran Tablet 00 90 tab, 3 Refill(s) Aspirin 81 No 81 mg = 1 [facility] 01-30 tab, PO, l Coated 12:08: Daily, # [place] Tablet 00 90 tab, 3 Refill(s) Aspirin 81 No 81 mg = 1 [facility] 01-30 tab, PO, l Coated 12:08: Daily, # [place] Tablet 00 90 tab, 3 Refill(s) Aspirin 81 No 81 mg = 1 [facility] 01-30 tab, PO, l Coated 12:08: Daily, # [place] Tablet 00 90 tab, 3 Refill(s) Aspirin 81 No 81 mg = 1 [facility] 01-30 tab, PO, l Coated 12:08: Daily, # Ran Tablet 00 90 tab, 3 Refill(s) Aspirin 81 No 81 mg = 1 [facility] 01-30 tab, PO, l Coated 12:08: Daily, # [place] Tablet 00 90 tab, 3 Refill(s) Aspirin 81 2020-0 No 81 mg = 1 [facility] 01-30 tab, PO, l Coated 12:08: Daily, # Ran Tablet 00 90 tab, 3 Refill(s) Aspirin 81 2020-0 No 81 mg = 1 [facility] 01-30 tab, PO, l Coated 12:08: Daily, # [place] Tablet 00 90 tab, 3 Refill(s) Aspirin 81 2020-0 No 81 mg = 1 [facility] 01-30 tab, PO, l Coated 12:08: Daily, # Ran Tablet 00 90 tab, 3 Refill(s) Aspirin 81 2020-0 No 81 mg = 1 [facility] 01-30 tab, PO, l Coated 12:08: Daily, # Ran Tablet 00 90 tab, 3 Refill(s) Aspirin 81 2020-0 No 81 mg = 1 [facility] 01-30 tab, PO, l Coated 12:08: Daily, # [place] Tablet 00 90 tab, 3 Refill(s) Aspirin 81 2020-0 No 81 mg = 1 [facility] 01-30 tab, PO, l Coated 12:08: Daily, # [place] Tablet 00 90 tab, 3 Refill(s) Aspirin 81 2020-0 No 81 mg = 1 [facility] 01-30 tab, PO, l Coated 12:08: Daily, # Ran Tablet 00 90 tab, 3 Refill(s) Aspirin 81 2020-0 No 81 mg = 1 [facility] 01-30 tab, PO, l Coated 12:08: Daily, # Ran Tablet 00 90 tab, 3 Refill(s) Aspirin 81 2020-0 No 81 mg = 1 [facility] 01-30 tab, PO, l Coated 12:08: Daily, # Ran Tablet 00 90 tab, 3 Refill(s) Aspirin 81 2020-0 No 81 mg = 1 [facility] 01-30 tab, PO, l Coated 12:08: Daily, # Ran Tablet 00 90 tab, 3 Refill(s) Aspirin 81 2020-0 No 81 mg = 1 [facility] 01-30 tab, PO, l Coated 12:08: Daily, # Ran Tablet 00 90 tab, 3 Refill(s) Aspirin 81 2021-0 No 81 mg = 1 [facility] 8-09 tab, PO, l Coated 12:08: Daily, # Ran Tablet 00 90 tab, 3 Refill(s) Aspirin 81 2021-0 No 81 mg = 1 [facility] 8-09 tab, PO, l Coated 12:08: Daily, # [place] Tablet 00 90 tab, 3 Refill(s) Aspirin 81 2021-0 No 81 mg = 1 [facility] 8-09 tab, PO, l Coated 12:08: Daily, # Ran Tablet 00 90 tab, 3 Refill(s) Aspirin 81 1-0 No 81 mg = 1 [facility] 8-09 tab, PO, l Coated 12:08: Daily, # Ran Tablet 00 90 tab, 3 Refill(s) Sodium 2021-0 No 1,000 mL, Memori a Chloride 8-09 Rate: 75 l 0.9% IV 12:02: ml/hr, [place] 1000 mL 00 Infuse over: 13.3 hr, Route: IV, Dosing Weight 83.182 kg, Total Volume: 1,000, Start date: 01/30/21 7:02:00 CDT, Duration: 30 day, Stop date: 03/01/21 7:01:00 CDT, BSA: 2 m2 Sodium 2021-0 No 1,000 mL, Memori a Chloride 8-09 Rate: 75 l 0.9% IV 12:02: ml/hr, [place] 1000 mL 00 Infuse over: 13.3 hr, Route: IV, Dosing Weight 83.182 kg, Total Volume: 1,000, Start date: 01/30/21 7:02:00 CDT, Duration: 30 day, Stop date: 03/01/21 7:01:00 CDT, BSA: 2 m2 Sodium 2021-0 No 1,000 mL, Memori a Chloride 8-09 Rate: 75 l 0.9% IV 12:02: ml/hr, [place] 1000 mL 00 Infuse over: 13.3 hr, Route: IV, Dosing Weight 83.182 kg, Total Volume: 1,000, Start date: 01/30/21 7:02:00 CDT, Duration: 30 day, Stop date: 03/01/21 7:01:00 CDT, BSA: 2 m2 Sodium 2021-0 No 1,000 mL, [facility] Chloride 8-09 Rate: 75 l 0.9% IV 12:02: ml/hr, Ran 1000 mL 00 Infuse over: 13.3 hr, Route: IV, Dosing Weight 83.182 kg, Total Volume: 1,000, Start date: 01/30/21 7:02:00 CDT, Duration: 30 day, Stop date: 03/01/21 7:01:00 CDT, BSA: 2 m2 Sodium 2021-0 No 1,000 mL, [facility] Chloride 8-09 Rate: 75 l 0.9% IV 12:02: ml/hr, [place] 1000 mL 00 Infuse over: 13.3 hr, Route: IV, Dosing Weight 83.182 kg, Total Volume: 1,000, Start date: 01/30/21 7:02:00 CDT, Duration: 30 day, Stop date: 03/01/21 7:01:00 CDT, BSA: 2 m2 Sodium 2021-0 No 1,000 mL, [facility] Chloride 8-09 Rate: 75 l 0.9% IV 12:02: ml/hr, [place] 1000 mL 00 Infuse over: 13.3 hr, Route: IV, Dosing Weight 83.182 kg, Total Volume: 1,000, Start date: 01/30/21 7:02:00 CDT, Duration: 30 day, Stop date: 03/01/21 7:01:00 CDT, BSA: 2 m2 Sodium 2021-0 No 1,000 mL, [facility] Chloride 8-09 Rate: 75 l 0.9% IV 12:02: ml/hr, [place] 1000 mL 00 Infuse over: 13.3 hr, Route: IV, Dosing Weight 83.182 kg, Total Volume: 1,000, Start date: 01/30/21 7:02:00 CDT, Duration: 30 day, Stop date: 03/01/21 7:01:00 CDT, BSA: 2 m2 Sodium 2021-0 No 1,000 mL, [facility] Chloride 8-09 Rate: 75 l 0.9% IV 12:02: ml/hr, [place] 1000 mL 00 Infuse over: 13.3 hr, Route: IV, Dosing Weight 83.182 kg, Total Volume: 1,000, Start date: 01/30/21 7:02:00 CDT, Duration: 30 day, Stop date: 03/01/21 7:01:00 CDT, BSA: 2 m2 Sodium 2021-0 No 1,000 mL, [facility] Chloride 8-09 Rate: 75 l 0.9% IV 12:02: ml/hr, Ran 1000 mL 00 Infuse over: 13.3 hr, Route: IV, Dosing Weight 83.182 kg, Total Volume: 1,000, Start date: 01/30/21 7:02:00 CDT, Duration: 30 day, Stop date: 03/01/21 7:01:00 CDT, BSA: 2 m2 Sodium 2021-0 No 1,000 mL, [facility] Chloride 8-09 Rate: 75 l 0.9% IV 12:02: ml/hr, Ran 1000 mL 00 Infuse over: 13.3 hr, Route: IV, Dosing Weight 83.182 kg, Total Volume: 1,000, Start date: 01/30/21 7:02:00 CDT, Duration: 30 day, Stop date: 03/01/21 7:01:00 CDT, BSA: 2 m2 Sodium 2021-0 No 1,000 mL, [facility] Chloride 8-09 Rate: 75 l 0.9% IV 12:02: ml/hr, [place] 1000 mL 00 Infuse over: 13.3 hr, Route: IV, Dosing Weight 83.182 kg, Total Volume: 1,000, Start date: 01/30/21 7:02:00 CDT, Duration: 30 day, Stop date: 03/01/21 7:01:00 CDT, BSA: 2 m2 Sodium 2021-0 No 1,000 mL, [facility] Chloride 8-09 Rate: 75 l 0.9% IV 12:02: ml/hr, [place] 1000 mL 00 Infuse over: 13.3 hr, Route: IV, Dosing Weight 83.182 kg, Total Volume: 1,000, Start date: 01/30/21 7:02:00 CDT, Duration: 30 day, Stop date: 03/01/21 7:01:00 CDT, BSA: 2 m2 Sodium 2021-0 No 1,000 mL, [facility] Chloride 8-09 Rate: 75 l 0.9% IV 12:02: ml/hr, [place] 1000 mL 00 Infuse over: 13.3 hr, Route: IV, Dosing Weight 83.182 kg, Total Volume: 1,000, Start date: 01/30/21 7:02:00 CDT, Duration: 30 day, Stop date: 03/01/21 7:01:00 CDT, BSA: 2 m2 Sodium 2021-0 No 1,000 mL, [facility] Chloride 8-09 Rate: 75 l 0.9% IV 12:02: ml/hr, [place] 1000 mL 00 Infuse over: 13.3 hr, Route: IV, Dosing Weight 83.182 kg, Total Volume: 1,000, Start date: 01/30/21 7:02:00 CDT, Duration: 30 day, Stop date: 03/01/21 7:01:00 CDT, BSA: 2 m2 Sodium 2021-0 No 1,000 mL, [facility] Chloride 8-09 Rate: 75 l 0.9% IV 12:02: ml/hr, [place] 1000 mL 00 Infuse over: 13.3 hr, Route: IV, Dosing Weight 83.182 kg, Total Volume: 1,000, Start date: 01/30/21 7:02:00 CDT, Duration: 30 day, Stop date: 03/01/21 7:01:00 CDT, BSA: 2 m2 Sodium 2021-0 No 1,000 mL, [facility] Chloride 8-09 Rate: 75 l 0.9% IV 12:02: ml/hr, [place] 1000 mL 00 Infuse over: 13.3 hr, Route: IV, Dosing Weight 83.182 kg, Total Volume: 1,000, Start date: 01/30/21 7:02:00 CDT, Duration: 30 day, Stop date: 03/01/21 7:01:00 CDT, BSA: 2 m2 Sodium 2021-0 No 1,000 mL, [facility] Chloride 8-09 Rate: 75 l 0.9% IV 12:02: ml/hr, [place] 1000 mL 00 Infuse over: 13.3 hr, Route: IV, Dosing Weight 83.182 kg, Total Volume: 1,000, Start date: 01/30/21 7:02:00 CDT, Duration: 30 day, Stop date: 03/01/21 7:01:00 CDT, BSA: 2 m2 Sodium 2021-0 No 1,000 mL, [facility] Chloride 8-09 Rate: 75 l 0.9% IV 12:02: ml/hr, [place] 1000 mL 00 Infuse over: 13.3 hr, Route: IV, Dosing Weight 83.182 kg, Total Volume: 1,000, Start date: 01/30/21 7:02:00 CDT, Duration: 30 day, Stop date: 03/01/21 7:01:00 CDT, BSA: 2 m2 Sodium 2021-0 No 1,000 mL, [facility] Chloride 8-09 Rate: 75 l 0.9% IV 12:02: ml/hr, [place] 1000 mL 00 Infuse over: 13.3 hr, Route: IV, Dosing Weight 83.182 kg, Total Volume: 1,000, Start date: 01/30/21 7:02:00 CDT, Duration: 30 day, Stop date: 03/01/21 7:01:00 CDT, BSA: 2 m2 Sodium 2021-0 No 1,000 mL, [facility] Chloride 8-09 Rate: 75 l 0.9% IV 12:02: ml/hr, [place] 1000 mL 00 Infuse over: 13.3 hr, Route: IV, Dosing Weight 83.182 kg, Total Volume: 1,000, Start date: 01/30/21 7:02:00 CDT, Duration: 30 day, Stop date: 03/01/21 7:01:00 CDT, BSA: 2 m2 Sodium 2021-0 No 1,000 mL, [facility] Chloride 8-09 Rate: 75 l 0.9% IV 12:02: ml/hr, [place] 1000 mL 00 Infuse over: 13.3 hr, Route: IV, Dosing Weight 83.182 kg, Total Volume: 1,000, Start date: 01/30/21 7:02:00 CDT, Duration: 30 day, Stop date: 03/01/21 7:01:00 CDT, BSA: 2 m2 Sodium 2021-0 No 1,000 mL, [facility] Chloride 8-09 Rate: 75 l 0.9% IV 12:02: ml/hr, [place] 1000 mL 00 Infuse over: 13.3 hr, Route: IV, Dosing Weight 83.182 kg, Total Volume: 1,000, Start date: 01/30/21 7:02:00 CDT, Duration: 30 day, Stop date: 03/01/21 7:01:00 CDT, BSA: 2 m2 Sodium 2021-0 No 1,000 mL, [facility]ide 8-09 Rate: 75 l 0.9% IV 12:02: ml/hr, [place] 1000 mL 00 Infuse over: 13.3 hr, Route: IV, Dosing Weight 83.182 kg, Total Volume: 1,000, Start date: 01/30/21 7:02:00 CDT, Duration: 30 day, Stop date: 03/01/21 7:01:00 CDT, BSA: 2 m2 Sodium 2021-0 No 1,000 mL, [facility] Chloride 8-09 Rate: 75 l 0.9% IV 12:02: ml/hr, [place] 1000 mL 00 Infuse over: 13.3 hr, Route: IV, Dosing Weight 83.182 kg, Total Volume: 1,000, Start date: 01/30/21 7:02:00 CDT, Duration: 30 day, Stop date: 03/01/21 7:01:00 CDT, BSA: 2 m2 Sodium 2021-0 No 1,000 mL, [facility] Chlor[place] 8-09 Rate: 75 l 0.9% IV 12:02: ml/hr, [place] 1000 mL 00 Infuse over: 13.3 hr, Route: IV, Dosing Weight 83.182 kg, Total Volume: 1,000, Start date: 01/30/21 7:02:00 CDT, Duration: 30 day, Stop date: 03/01/21 7:01:00 CDT, BSA: 2 m2 Sodium 2021-0 No 1,000 mL, [facility] [place]lor[place] 8-09 Rate: 75 l 0.9% IV 12:02: ml/hr, [place] 1000 mL 00 Infuse over: 13.3 hr, Route: IV, Dosing Weight 83.182 kg, Total Volume: 1,000, Start date: 01/30/21 7:02:00 CDT, Duration: 30 day, Stop date: 03/01/21 7:01:00 CDT, BSA: 2 m2 Sodium 2021-0 No 1,000 mL, [facility] [place] 8-09 Rate: 75 l 0.9% IV 12:02: ml/hr, [place] 1000 mL 00 Infuse over: 13.3 hr, Route: IV, Dosing Weight 83.182 kg, Total Volume: 1,000, Start date: 01/30/21 7:02:00 CDT, Duration: 30 day, Stop date: 03/01/21 7:01:00 CDT, BSA: 2 m2 Sodium 2021-0 No 1,000 mL, [facility] [place] 8-09 Rate: 75 l 0.9% IV 12:02: ml/hr, [place] 1000 mL 00 Infuse over: 13.3 hr, Route: IV, Dosing Weight 83.182 kg, Total Volume: 1,000, Start date: 01/30/21 7:02:00 CDT, Duration: 30 day, Stop date: 03/01/21 7:01:00 CDT, BSA: 2 m2 Sodium 2021-0 No 1,000 mL, [facility] [place] 8-09 Rate: 75 l 0.9% IV 12:02: ml/hr, [place] 1000 mL 00 Infuse over: 13.3 hr, Route: IV, Dosing Weight 83.182 kg, Total Volume: 1,000, Start date: 01/30/21 7:02:00 CDT, Duration: 30 day, Stop date: 03/01/21 7:01:00 CDT, BSA: 2 m2 Sodium 2021-0 No 1,000 mL, [facility] [place] 8-09 Rate: 75 l 0.9% IV 12:02: ml/hr, [place] 1000 mL 00 Infuse over: 13.3 hr, Route: IV, Dosing Weight 83.182 kg, Total Volume: 1,000, Start date: 01/30/21 7:02:00 CDT, Duration: 30 day, Stop date: 03/01/21 7:01:00 CDT, BSA: 2 m2 Sodium 2021-0 No 1,000 mL, [facility] Chloride 8-09 Rate: 75 l 0.9% IV 12:02: ml/hr, [place] 1000 mL 00 Infuse over: 13.3 hr, Route: IV, Dosing Weight 83.182 kg, Total Volume: 1,000, Start date: 01/30/21 7:02:00 CDT, Duration: 30 day, Stop date: 03/01/21 7:01:00 CDT, BSA: 2 m2 Sodium 2021-0 No 1,000 mL, [facility] Chloride 8-09 Rate: 75 l 0.9% IV 12:02: ml/hr, [place] 1000 mL 00 Infuse over: 13.3 hr, Route: IV, Dosing Weight 83.182 kg, Total Volume: 1,000, Start date: 01/30/21 7:02:00 CDT, Duration: 30 day, Stop date: 03/01/21 7:01:00 CDT, BSA: 2 m2 Sodium 2021-0 No 1,000 mL, [facility] [place] 8-09 Rate: 75 l 0.9% IV 12:02: ml/hr, [place] 1000 mL 00 Infuse over: 13.3 hr, Route: IV, Dosing Weight 83.182 kg, Total Volume: 1,000, Start date: 01/30/21 7:02:00 CDT, Duration: 30 day, Stop date: 03/01/21 7:01:00 CDT, BSA: 2 m2 Sodium 2021-0 No 1,000 mL, [facility] [place] 8-09 Rate: 75 l 0.9% IV 12:02: ml/hr, [place] 1000 mL 00 Infuse over: 13.3 hr, Route: IV, Dosing Weight 83.182 kg, Total Volume: 1,000, Start date: 01/30/21 7:02:00 CDT, Duration: 30 day, Stop date: 03/01/21 7:01:00 CDT, BSA: 2 m2 Sodium 2021-0 No 1,000 mL, [facility] [place]lor[place] 8-09 Rate: 75 l 0.9% IV 12:02: ml/hr, [place] 1000 mL 00 Infuse over: 13.3 hr, Route: IV, Dosing Weight 83.182 kg, Total Volume: 1,000, Start date: 01/30/21 7:02:00 CDT, Duration: 30 day, Stop date: 03/01/21 7:01:00 CDT, BSA: 2 m2 Sodium 2021-0 No 1,000 mL, [facility] Chloride 8-09 Rate: 75 l 0.9% IV 12:02: ml/hr, [place] 1000 mL 00 Infuse over: 13.3 hr, Route: IV, Dosing Weight 83.182 kg, Total Volume: 1,000, Start date: 01/30/21 7:02:00 CDT, Duration: 30 day, Stop date: 03/01/21 7:01:00 CDT, BSA: 2 m2 Sodium 2021-0 No 1,000 mL, [facility] [place] 8-09 Rate: 75 l 0.9% IV 12:02: ml/hr, [place] 1000 mL 00 Infuse over: 13.3 hr, Route: IV, Dosing Weight 83.182 kg, Total Volume: 1,000, Start date: 01/30/21 7:02:00 CDT, Duration: 30 day, Stop date: 03/01/21 7:01:00 CDT, BSA: 2 m2 Sodium 2021-0 No 1,000 mL, [facility] [place]loride 8-09 Rate: 75 l 0.9% IV 12:02: ml/hr, [place] 1000 mL 00 Infuse over: 13.3 hr, Route: IV, Dosing Weight 83.182 kg, Total Volume: 1,000, Start date: 01/30/21 7:02:00 CDT, Duration: 30 day, Stop date: 03/01/21 7:01:00 CDT, BSA: 2 m2 Sodium 2021-0 No 1,000 mL, [facility] [place] 8-09 Rate: 75 l 0.9% IV 12:02: ml/hr, [place] 1000 mL 00 Infuse over: 13.3 hr, Route: IV, Dosing Weight 83.182 kg, Total Volume: 1,000, Start date: 01/30/21 7:02:00 CDT, Duration: 30 day, Stop date: 03/01/21 7:01:00 CDT, BSA: 2 m2 Sodium 2021-0 No 1,000 mL, [facility] Chloride 8-09 Rate: 75 l 0.9% IV 12:02: ml/hr, [place] 1000 mL 00 Infuse over: 13.3 hr, Route: IV, Dosing Weight 83.182 kg, Total Volume: 1,000, Start date: 01/30/21 7:02:00 CDT, Duration: 30 day, Stop date: 03/01/21 7:01:00 CDT, BSA: 2 m2 Sodium 1-0 No 1,000 mL, [facility] [place] 01-30 Rate: 75 l 0.9% IV 12:02: ml/hr, [place] 1000 mL 00 Infuse over: 13.3 hr, Route: IV, Dosing Weight 83.182 kg, Total Volume: 1,000, Start date: 01/30/21 7:02:00 CDT, Duration: 30 day, Stop date: 03/01/21 7:01:00 CDT, BSA: 2 m2 Acetaminoph 1-0 Yes 15 ml, PO, [facility] 21.7 7-27 Q6H, PRN l MG/ML / 17:13: Pain, X 7 [place] nn Hydrocodone 00 day, # 120 Bitartrate mL, 0 0.5 MG/ML Refill(s), Oral Pharmacy: [facility], 170.18, cm, 01/16/21 8:57:00 CDT, Height, 86.364, kg, 01/16/21 8:57:00 CDT, Weight Acetaminoph 1-0 Yes 15 ml, PO, [facility] [place] 21.7 7-27 Q6H, PRN l MG/ML / 17:13: Pain, X 7 [place] nn Hydrocodone 00 day, # 120 Bitartrate mL, 0 0.5 MG/ML Refill(s), Oral Pharmacy: [facility], 170.18, cm, 01/16/21 8:57:00 CDT, Height, 86.364, kg, 01/16/21 8:57:00 CDT, Weight Acetaminoph 1-0 Yes 15 ml, PO, [place] 21.7 7-27 Q6H, PRN l MG/ML / 17:13: Pain, X 7 [place] nn Hydrocodone 00 day, # 120 Bitartrate mL, 0 0.5 MG/ML Refill(s), Oral Pharmacy: [facility], 170.18, cm, 01/16/21 8:57:00 CDT, Height, 86.364, kg, 01/16/21 8:57:00 CDT, Weight Acetaminoph 1-0 Yes 15 ml, PO, [place] 21.7 7-27 Q6H, PRN l MG/ML / 17:13: Pain, X 7 [place] nn Hydrocodone 00 day, # 120 Bitartrate mL, 0 0.5 MG/ML Refill(s), Oral Pharmacy: [facility], 170.18, cm, 01/16/21 8:57:00 CDT, Height, 86.364, kg, 01/16/21 8:57:00 CDT, Weight Acetaminoph 2020-0 Yes 15 ml, PO, [place] 21.7 7- Q6H, PRN l MG/ML / 17:13: Pain, X 7 [place] nn Hydrocodone 00 day, # 120 Bitartrate mL, 0 0.5 MG/ML Refill(s), Oral Pharmacy: [facility], 170.18, cm, 01/16/21 8:57:00 CDT, Height, 86.364, kg, 01/16/21 8:57:00 CDT, Weight Acetaminoph 2020-0 Yes 15 ml, PO, [place] 21.7 7- Q6H, PRN l MG/ML / 17:13: Pain, X 7 [place] nn Hydrocodone 00 day, # 120 Bitartrate mL, 0 0.5 MG/ML Refill(s), Oral Pharmacy: [facility], 170.18, cm, 01/16/21 8:57:00 CDT, Height, 86.364, kg, 01/16/21 8:57:00 CDT, Weight Acetaminoph 2020-0 Yes 15 ml, PO, [place] 21.7 7- Q6H, PRN l MG/ML / 17:13: Pain, X 7 [place] nn Hydrocodone 00 day, # 120 Bitartrate mL, 0 0.5 MG/ML Refill(s), Oral Pharmacy: [facility], 170.18, cm, 01/16/21 8:57:00 CDT, Height, 86.364, kg, 01/16/21 8:57:00 CDT, Weight Acetaminoph 1-0 Yes 15 ml, PO, [place] 21.7 7- Q6H, PRN l MG/ML / 17:13: Pain, X 7 [place] nn Hydrocodone 00 day, # 120 Bitartrate mL, 0 0.5 MG/ML Refill(s), Oral Pharmacy: [facility], 170.18, cm, 01/16/21 8:57:00 CDT, Height, 86.364, kg, 01/16/21 8:57:00 CDT, Weight Acetaminoph 1-0 Yes 15 ml, PO, [place] 21.7 7-27 Q6H, PRN l MG/ML / 17:13: Pain, X 7 [place] nn Hydrocodone 00 day, # 120 Bitartrate mL, 0 0.5 MG/ML Refill(s), Oral Pharmacy: [facility], 170.18, cm, 01/16/21 8:57:00 CDT, Height, 86.364, kg, 01/16/21 8:57:00 CDT, Weight Acetaminoph 1-0 Yes 15 ml, PO, [place] 21.7 7-27 Q6H, PRN l MG/ML / 17:13: Pain, X 7 [place] nn Hydrocodone 00 day, # 120 Bitartrate mL, 0 0.5 MG/ML Refill(s), Oral Pharmacy: [facility], 170.18, cm, 01/16/21 8:57:00 CDT, Height, 86.364, kg, 01/16/21 8:57:00 CDT, Weight Acetaminoph 1-0 Yes 15 ml, PO, [place] 21.7 7-27 Q6H, PRN l MG/ML / 17:13: Pain, X 7 [place] nn Hydrocodone 00 day, # 120 Bitartrate mL, 0 0.5 MG/ML Refill(s), Oral Pharmacy: [facility], 170.18, cm, 01/16/21 8:57:00 CDT, Height, 86.364, kg, 01/16/21 8:57:00 CDT, Weight Acetaminoph 2021-0 Yes 15 ml, PO, [place] 21.7 7-27 Q6H, PRN l MG/ML / 17:13: Pain, X 7 [place] nn Hydrocodone 00 day, # 120 Bitartrate mL, 0 0.5 MG/ML Refill(s), Oral Pharmacy: [facility], 170.18, cm, 01/16/21 8:57:00 CDT, Height, 86.364, kg, 01/16/21 8:57:00 CDT, Weight Acetaminoph 1-0 Yes 15 ml, PO, [place] 21.7 7-27 Q6H, PRN l MG/ML / 17:13: Pain, X 7 [place] nn Hydrocodone 00 day, # 120 Bitartrate mL, 0 0.5 MG/ML Refill(s), Oral Pharmacy: [facility], 170.18, cm, 01/16/21 8:57:00 CDT, Height, 86.364, kg, 01/16/21 8:57:00 CDT, Weight Acetaminoph 1-0 Yes 15 ml, PO, [place] 21.7 7-27 Q6H, PRN l MG/ML / 17:13: Pain, X 7 [place] nn Hydrocodone 00 day, # 120 Bitartrate mL, 0 0.5 MG/ML Refill(s), Oral Pharmacy: [facility], 170.18, cm, 01/16/21 8:57:00 CDT, Height, 86.364, kg, 01/16/21 8:57:00 CDT, Weight Acetaminoph 1-0 Yes 15 ml, PO, [place] 21.7 7-27 Q6H, PRN l MG/ML / 17:13: Pain, X 7 [place] nn Hydrocodone 00 day, # 120 Bitartrate mL, 0 0.5 MG/ML Refill(s), Oral Pharmacy: [facility], 170.18, cm, 01/16/21 8:57:00 CDT, Height, 86.364, kg, 01/16/21 8:57:00 CDT, Weight Acetaminoph 1-0 Yes 15 ml, PO, [place] 21.7 7-27 Q6H, PRN l MG/ML / 17:13: Pain, X 7 [place] nn Hydrocodone 00 day, # 120 Bitartrate mL, 0 0.5 MG/ML Refill(s), Oral Pharmacy: [facility], 170.18, cm, 01/16/21 8:57:00 CDT, Height, 86.364, kg, 01/16/21 8:57:00 CDT, Weight Acetaminoph 1-0 Yes 15 ml, PO, [place] 21.7 7-27 Q6H, PRN l MG/ML / 17:13: Pain, X 7 [place] nn Hydrocodone 00 day, # 120 Bitartrate mL, 0 0.5 MG/ML Refill(s), Oral Pharmacy: [facility], 170.18, cm, 01/16/21 8:57:00 CDT, Height, 86.364, kg, 01/16/21 8:57:00 CDT, Weight Acetaminoph 1-0 Yes 15 ml, PO, [place] 21.7 7-27 Q6H, PRN l MG/ML / 17:13: Pain, X 7 [place] nn Hydrocodone 00 day, # 120 Bitartrate mL, 0 0.5 MG/ML Refill(s), Oral Pharmacy: [facility], 170.18, cm, 01/16/21 8:57:00 CDT, Height, 86.364, kg, 01/16/21 8:57:00 CDT, Weight Acetaminoph 1-0 Yes 15 ml, PO, [place] [place] 21.7 7-27 Q6H, PRN l MG/ML / 17:13: Pain, X 7 [place] nn Hydrocodone 00 day, # 120 Bitartrate mL, 0 0.5 MG/ML Refill(s), Oral Pharmacy: [facility], 170.18, cm, 01/16/21 8:57:00 CDT, Height, 86.364, kg, 01/16/21 8:57:00 CDT, Weight Acetaminoph 1-0 Yes 15 ml, PO, [place] [place] 21.7 7-27 Q6H, PRN l MG/ML / 17:13: Pain, X 7 [place] nn Hydrocodone 00 day, # 120 Bitartrate mL, 0 0.5 MG/ML Refill(s), Oral Pharmacy: [facility], 170.18, cm, 01/16/21 8:57:00 CDT, Height, 86.364, kg, 01/16/21 8:57:00 CDT, Weight Acetaminoph 2020-0 Yes 15 ml, PO, [place] [place] 21.7 7-27 Q6H, PRN l MG/ML / 17:13: Pain, X 7 [place] nn Hydrocodone 00 day, # 120 Bitartrate mL, 0 0.5 MG/ML Refill(s), Oral Pharmacy: [facility], 170.18, cm, 01/16/21 8:57:00 CDT, Height, 86.364, kg, 01/16/21 8:57:00 CDT, Weight Acetaminoph 2020-0 Yes 15 ml, PO, [place] [place] 21.7 7-27 Q6H, PRN l MG/ML / 17:13: Pain, X 7 [place] nn Hydrocodone 00 day, # 120 Bitartrate mL, 0 0.5 MG/ML Refill(s), Oral Pharmacy: [facility], 170.18, cm, 01/16/21 8:57:00 CDT, Height, 86.364, kg, 01/16/21 8:57:00 CDT, Weight Acetaminoph 2020-0 Yes 15 ml, PO, [facility] en 21.7 7-27 Q6H, PRN l MG/ML / 17:13: Pain, X 7 [place] nn Hydrocodone 00 day, # 120 Bitartrate mL, 0 0.5 MG/ML Refill(s), Oral Pharmacy: [facility], 170.18, cm, 01/16/21 8:57:00 CDT, Height, 86.364, kg, 01/16/21 8:57:00 CDT, Weight Acetaminoph 2020-0 Yes 15 ml, PO, [facility] en 21.7 7- Q6H, PRN l MG/ML / 17:13: Pain, X 7 [place] nn Hydrocodone 00 day, # 120 Bitartrate mL, 0 0.5 MG/ML Refill(s), Oral Pharmacy: [facility], 170.18, cm, 01/16/21 8:57:00 CDT, Height, 86.364, kg, 01/16/21 8:57:00 CDT, Weight Acetaminoph 1-0 Yes 15 ml, PO, [facility] en 21.7 7-27 Q6H, PRN l MG/ML / 17:13: Pain, X 7 [place] nn Hydrocodone 00 day, # 120 Bitartrate mL, 0 0.5 MG/ML Refill(s), Oral Pharmacy: [facility], 170.18, cm, 01/16/21 8:57:00 CDT, Height, 86.364, kg, 01/16/21 8:57:00 CDT, Weight Acetaminoph 1-0 Yes 15 ml, PO, [facility] en 21.7 7-27 Q6H, PRN l MG/ML / 17:13: Pain, X 7 [place] nn Hydrocodone 00 day, # 120 Bitartrate mL, 0 0.5 MG/ML Refill(s), Oral Pharmacy: [facility], 170.18, cm, 01/16/21 8:57:00 CDT, Height, 86.364, kg, 01/16/21 8:57:00 CDT, Weight Acetaminoph 1-0 Yes 15 ml, PO, [facility] en 21.7 7-27 Q6H, PRN l MG/ML / 17:13: Pain, X 7 [place] nn Hydrocodone 00 day, # 120 Bitartrate mL, 0 0.5 MG/ML Refill(s), Oral Pharmacy: [facility], 170.18, cm, 01/16/21 8:57:00 CDT, Height, 86.364, kg, 01/16/21 8:57:00 CDT, Weight Acetaminoph 1-0 Yes 15 ml, PO, [facility] en 21.7 7-27 Q6H, PRN l MG/ML / 17:13: Pain, X 7 [place]ila nn Hydrocodone 00 day, # 120 Bitartrate mL, 0 0.5 MG/ML Refill(s), Oral Pharmacy: [facility], 170.18, cm, 01/16/21 8:57:00 CDT, Height, 86.364, kg, 01/16/21 8:57:00 CDT, Weight Acetaminoph 1-0 Yes 15 ml, PO, [facility] en 21.7 7-27 Q6H, PRN l MG/ML / 17:13: Pain, X 7 Hermila nn Hydrocodone 00 day, # 120 Bitartrate mL, 0 0.5 MG/ML Refill(s), Oral Pharmacy: [facility], 170.18, cm, 01/16/21 8:57:00 CDT, Height, 86.364, kg, 01/16/21 8:57:00 CDT, Weight Acetaminoph 2020-0 Yes 15 ml, PO, [facility] en 21.7 7-27 Q6H, PRN l MG/ML / 17:13: Pain, X 7 Hermila nn Hydrocodone 00 day, # 120 Bitartrate mL, 0 0.5 MG/ML Refill(s), Oral Pharmacy: [facility], 170.18, cm, 01/16/21 8:57:00 CDT, Height, 86.364, kg, 01/16/21 8:57:00 CDT, Weight Acetaminoph 1-0 Yes 15 ml, PO, [facility] en 21.7 7-27 Q6H, PRN l MG/ML / 17:13: Pain, X 7 Hermila nn Hydrocodone 00 day, # 120 Bitartrate mL, 0 0.5 MG/ML Refill(s), Oral Pharmacy: [facility], 170.18, cm, 01/16/21 8:57:00 CDT, Height, 86.364, kg, 01/16/21 8:57:00 CDT, Weight Acetaminoph 1-0 Yes 15 ml, PO, [facility] en 21.7 7-27 Q6H, PRN l MG/ML / 17:13: Pain, X 7 Hermila nn Hydrocodone 00 day, # 120 Bitartrate mL, 0 0.5 MG/ML Refill(s), Oral Pharmacy: [facility], 170.18, cm, 01/16/21 8:57:00 CDT, Height, 86.364, kg, 01/16/21 8:57:00 CDT, Weight Acetaminoph 2021-0 Yes 15 ml, PO, Memoria en 21.7 7-27 Q6H, PRN l MG/ML / 17:13: Pain, X 7 Hermila nn Hydrocodone 00 day, # 120 Bitartrate mL, 0 0.5 MG/ML Refill(s), Oral Pharmacy: [facility], 170.18, cm, 01/16/21 8:57:00 CDT, Height, 86.364, kg, 01/16/21 8:57:00 CDT, Weight Acetaminoph 2020-0 Yes 15 ml, PO, Memoria en 21.7 7-27 Q6H, PRN l MG/ML / 17:13: Pain, X 7 Hermila nn Hydrocodone 00 day, # 120 Bitartrate mL, 0 0.5 MG/ML Refill(s), Oral Pharmacy: [facility], 170.18, cm, 01/16/21 8:57:00 CDT, Height, 86.364, kg, 01/16/21 8:57:00 CDT, Weight Acetaminoph 2020-0 Yes 15 ml, PO, Memoria en 21.7 7-27 Q6H, PRN l MG/ML / 17:13: Pain, X 7 Hermila nn Hydrocodone 00 day, # 120 Bitartrate mL, 0 0.5 MG/ML Refill(s), Oral Pharmacy: [facility], 170.18, cm, 01/16/21 8:57:00 CDT, Height, 86.364, kg, 01/16/21 8:57:00 CDT, Weight Acetaminoph 2020-0 Yes 15 ml, PO, Memoria en 21.7 7-27 Q6H, PRN l MG/ML / 17:13: Pain, X 7 Hermila nn Hydrocodone day, # 120 Bitartrate mL, 0 0.5 MG/ML Refill(s), Oral Pharmacy: [facility], 170.18, cm, 01/16/21 8:57:00 CDT, Height, 86.364, kg, 01/16/21 8:57:00 CDT, Weight Acetaminoph 2020-0 Yes 15 ml, PO, Memoria en 21.7 7-27 Q6H, PRN l MG/ML / 17:13: Pain, X 7 Hermila nn Hydrocodone 00 day, # 120 Bitartrate mL, 0 0.5 MG/ML Refill(s), Oral Pharmacy: [facility], 170.18, cm, 01/16/21 8:57:00 CDT, Height, 86.364, kg, 01/16/21 8:57:00 CDT, Weight Acetaminoph 1-0 Yes 15 ml, PO, Memoria en 21.7 7-27 Q6H, PRN l MG/ML / 17:13: Pain, X 7 Hermila nn Hydrocodone 00 day, # 120 Bitartrate mL, 0 0.5 MG/ML Refill(s), Oral Pharmacy: [facility], 170.18, cm, 01/16/21 8:57:00 CDT, Height, 86.364, kg, 01/16/21 8:57:00 CDT, Weight Acetaminoph 2020-0 Yes 15 ml, PO, Memoria en 21.7 7-27 Q6H, PRN l MG/ML / 17:13: Pain, X 7 Hermila nn Hydrocodone 00 day, # 120 Bitartrate mL, 0 0.5 MG/ML Refill(s), Oral Pharmacy: [facility], 170.18, cm, 01/16/21 8:57:00 CDT, Height, 86.364, kg, 01/16/21 8:57:00 CDT, Weight Acetaminoph 2020-0 Yes 15 ml, PO, Memoria en 21.7 7-27 Q6H, PRN l MG/ML / 17:13: Pain, X 7 Hermila nn Hydrocodone 00 day, # 120 Bitartrate mL, 0 0.5 MG/ML Refill(s), Oral Pharmacy: [facility], 170.18, cm, 01/16/21 8:57:00 CDT, Height, 86.364, kg, 01/16/21 8:57:00 CDT, Weight Acetaminoph 1-0 Yes 15 ml, PO, Memoria en 21.7 7-27 Q6H, PRN l MG/ML / 17:13: Pain, X 7 Hermila nn Hydrocodone 00 day, # 120 Bitartrate mL, 0 0.5 MG/ML Refill(s), Oral Pharmacy: [facility], 170.18, cm, 01/16/21 8:57:00 CDT, Height, 86.364, kg, 01/16/21 8:57:00 CDT, Weight omeprazole 2021-0 Yes 40 mg = 1 Me moria 40 mg oral 7-27 cap, PO, l delayed 17:12: BID, # 60 Hermila nn release 00 cap, 2 capsule Refill(s), Pharmacy: [facility], 170.18, cm, 01/16/21 8:57:00 CDT, Height, 86.364, kg, 01/16/21 8:57:00 CDT, Weight omeprazole 2021-0 Yes 40 mg = 1 Me moria 40 mg oral 7-27 cap, PO, l delayed 17:12: BID, # 60 Hermila nn release 00 cap, 2 capsule Refill(s), Pharmacy: [facility], 170.18, cm, 01/16/21 8:57:00 CDT, Height, 86.364, kg, 01/16/21 8:57:00 CDT, Weight omeprazole 2021-0 Yes 40 mg = 1 Me moria 40 mg oral 7-27 cap, PO, l delayed 17:12: BID, # 60 Hermila nn release 00 cap, 2 capsule Refill(s), Pharmacy: [facility], 170.18, cm, 01/16/21 8:57:00 CDT, Height, 86.364, kg, 01/16/21 8:57:00 CDT, Weight omeprazole 2021-0 Yes 40 mg = 1 Me moria 40 mg oral 7-27 cap, PO, l delayed 17:12: BID, # 60 Hermila nn release 00 cap, 2 capsule Refill(s), Pharmacy: [facility], 170.18, cm, 01/16/21 8:57:00 CDT, Height, 86.364, kg, 01/16/21 8:57:00 CDT, Weight omeprazole 2021-0 Yes 40 mg = 1 Me moria 40 mg oral 7-27 cap, PO, l delayed 17:12: BID, # 60 Hermila nn release 00 cap, 2 capsule Refill(s), Pharmacy: [facility], 170.18, cm, 01/16/21 8:57:00 CDT, Height, 86.364, kg, 01/16/21 8:57:00 CDT, Weight omeprazole 2021-0 Yes 40 mg = 1 Me moria 40 mg oral 7-27 cap, PO, l delayed 17:12: BID, # 60 Hermila nn release 00 cap, 2 capsule Refill(s), Pharmacy: [facility], 170.18, cm, 01/16/21 8:57:00 CDT, Height, 86.364, kg, 01/16/21 8:57:00 CDT, Weight omeprazole 2021-0 Yes 40 mg = 1 Me moria 40 mg oral 7-27 cap, PO, l delayed 17:12: BID, # 60 Hermila nn release 00 cap, 2 capsule Refill(s), Pharmacy: [facility], 170.18, cm, 01/16/21 8:57:00 CDT, Height, 86.364, kg, 01/16/21 8:57:00 CDT, Weight omeprazole 2021-0 Yes 40 mg = 1 Me moria 40 mg oral 7-27 cap, PO, l delayed 17:12: BID, # 60 Hermila nn release 00 cap, 2 capsule Refill(s), Pharmacy: [facility], 170.18, cm, 01/16/21 8:57:00 CDT, Height, 86.364, kg, 01/16/21 8:57:00 CDT, Weight omeprazole 2021-0 Yes 40 mg = 1 Me moria 40 mg oral 7-27 cap, PO, l delayed 17:12: BID, # 60 Hermila nn release 00 cap, 2 capsule Refill(s), Pharmacy: [facility], 170.18, cm, 01/16/21 8:57:00 CDT, Height, 86.364, kg, 01/16/21 8:57:00 CDT, Weight omeprazole 2021-0 Yes 40 mg = 1 Me moria 40 mg oral 7-27 cap, PO, l delayed 17:12: BID, # 60 Hermila nn release 00 cap, 2 capsule Refill(s), Pharmacy: [facility], 170.18, cm, 01/16/21 8:57:00 CDT, Height, 86.364, kg, 01/16/21 8:57:00 CDT, Weight omeprazole 2021-0 Yes 40 mg = 1 Me moria 40 mg oral 7-27 cap, PO, l delayed 17:12: BID, # 60 Hermila nn release 00 cap, 2 capsule Refill(s), Pharmacy: [facility], 170.18, cm, 01/16/21 8:57:00 CDT, Height, 86.364, kg, 01/16/21 8:57:00 CDT, Weight omeprazole 2021-0 Yes 40 mg = 1 Me moria 40 mg oral 7-27 cap, PO, l delayed 17:12: BID, # 60 Hermila nn release 00 cap, 2 capsule Refill(s), Pharmacy: [facility], 170.18, cm, 01/16/21 8:57:00 CDT, Height, 86.364, kg, 01/16/21 8:57:00 CDT, Weight omeprazole 2021-0 Yes 40 mg = 1 Me moria 40 mg oral 7-27 cap, PO, l delayed 17:12: BID, # 60 Hermila nn release 00 cap, 2 capsule Refill(s), Pharmacy: [facility], 170.18, cm, 01/16/21 8:57:00 CDT, Height, 86.364, kg, 01/16/21 8:57:00 CDT, Weight omeprazole 2021-0 Yes 40 mg = 1 Me moria 40 mg oral 7-27 cap, PO, l delayed 17:12: BID, # 60 Hermila nn release 00 cap, 2 capsule Refill(s), Pharmacy: [facility], 170.18, cm, 01/16/21 8:57:00 CDT, Height, 86.364, kg, 01/16/21 8:57:00 CDT, Weight omeprazole 2021-0 Yes 40 mg = 1 Me moria 40 mg oral 7-27 cap, PO, l delayed 17:12: BID, # 60 Hermila nn release 00 cap, 2 capsule Refill(s), Pharmacy: [facility], 170.18, cm, 01/16/21 8:57:00 CDT, Height, 86.364, kg, 01/16/21 8:57:00 CDT, Weight omeprazole 2021-0 Yes 40 mg = 1 Me moria 40 mg oral 7-27 cap, PO, l delayed 17:12: BID, # 60 Hermila nn release 00 cap, 2 capsule Refill(s), Pharmacy: [facility], 170.18, cm, 01/16/21 8:57:00 CDT, Height, 86.364, kg, 01/16/21 8:57:00 CDT, Weight omeprazole 2021-0 Yes 40 mg = 1 Me moria 40 mg oral 7-27 cap, PO, l delayed 17:12: BID, # 60 Hermila nn release 00 cap, 2 capsule Refill(s), Pharmacy: [facility], 170.18, cm, 01/16/21 8:57:00 CDT, Height, 86.364, kg, 01/16/21 8:57:00 CDT, Weight omeprazole 2021-0 Yes 40 mg = 1 Me moria 40 mg oral 7-27 cap, PO, l delayed 17:12: BID, # 60 Hermila nn release 00 cap, 2 capsule Refill(s), Pharmacy: [facility], 170.18, cm, 01/16/21 8:57:00 CDT, Height, 86.364, kg, 01/16/21 8:57:00 CDT, Weight omeprazole 2021-0 Yes 40 mg = 1 Me moria 40 mg oral 7-27 cap, PO, l delayed 17:12: BID, # 60 Hermila nn release 00 cap, 2 capsule Refill(s), Pharmacy: [facility], 170.18, cm, 01/16/21 8:57:00 CDT, Height, 86.364, kg, 01/16/21 8:57:00 CDT, Weight omeprazole 2021-0 Yes 40 mg = 1 Me moria 40 mg oral 7-27 cap, PO, l delayed 17:12: BID, # 60 Hermila nn release 00 cap, 2 capsule Refill(s), Pharmacy: [facility], 170.18, cm, 01/16/21 8:57:00 CDT, Height, 86.364, kg, 01/16/21 8:57:00 CDT, Weight omeprazole 2021-0 Yes 40 mg = 1 Me moria 40 mg oral 7-27 cap, PO, l delayed 17:12: BID, # 60 Hermila nn release 00 cap, 2 capsule Refill(s), Pharmacy: [facility], 170.18, cm, 01/16/21 8:57:00 CDT, Height, 86.364, kg, 01/16/21 8:57:00 CDT, Weight omeprazole 2021-0 Yes 40 mg = 1 Me moria 40 mg oral 7-27 cap, PO, l delayed 17:12: BID, # 60 Hermila nn release 00 cap, 2 capsule Refill(s), Pharmacy: [facility], 170.18, cm, 01/16/21 8:57:00 CDT, Height, 86.364, kg, 01/16/21 8:57:00 CDT, Weight omeprazole 2021-0 Yes 40 mg = 1 Me moria 40 mg oral 7-27 cap, PO, l delayed 17:12: BID, # 60 Hermila nn release 00 cap, 2 capsule Refill(s), Pharmacy: [facility], 170.18, cm, 01/16/21 8:57:00 CDT, Height, 86.364, kg, 01/16/21 8:57:00 CDT, Weight omeprazole 2021-0 Yes 40 mg = 1 Me moria 40 mg oral 7-27 cap, PO, l delayed 17:12: BID, # 60 Hermila nn release 00 cap, 2 capsule Refill(s), Pharmacy: [facility], 170.18, cm, 01/16/21 8:57:00 CDT, Height, 86.364, kg, 01/16/21 8:57:00 CDT, Weight omeprazole 2021-0 Yes 40 mg = 1 Me moria 40 mg oral 7-27 cap, PO, l delayed 17:12: BID, # 60 Hermila nn release 00 cap, 2 capsule Refill(s), Pharmacy: [facility], 170.18, cm, 01/16/21 8:57:00 CDT, Height, 86.364, kg, 01/16/21 8:57:00 CDT, Weight omeprazole 2021-0 Yes 40 mg = 1 Me moria 40 mg oral 7-27 cap, PO, l delayed 17:12: BID, # 60 Hermila nn release 00 cap, 2 capsule Refill(s), Pharmacy: [facility], 170.18, cm, 01/16/21 8:57:00 CDT, Height, 86.364, kg, 01/16/21 8:57:00 CDT, Weight omeprazole 2021-0 Yes 40 mg = 1 Me moria 40 mg oral 7-27 cap, PO, l delayed 17:12: BID, # 60 Hermila nn release 00 cap, 2 capsule Refill(s), Pharmacy: [facility], 170.18, cm, 01/16/21 8:57:00 CDT, Height, 86.364, kg, 01/16/21 8:57:00 CDT, Weight omeprazole 2021-0 Yes 40 mg = 1 Me moria 40 mg oral 7-27 cap, PO, l delayed 17:12: BID, # 60 Hermila nn release 00 cap, 2 capsule Refill(s), Pharmacy: [facility], 170.18, cm, 01/16/21 8:57:00 CDT, Height, 86.364, kg, 01/16/21 8:57:00 CDT, Weight omeprazole 2021-0 Yes 40 mg = 1 Me moria 40 mg oral 7-27 cap, PO, l delayed 17:12: BID, # 60 Hermila nn release 00 cap, 2 capsule Refill(s), Pharmacy: [facility], 170.18, cm, 01/16/21 8:57:00 CDT, Height, 86.364, kg, 01/16/21 8:57:00 CDT, Weight omeprazole 2021-0 Yes 40 mg = 1 Me moria 40 mg oral 7-27 cap, PO, l delayed 17:12: BID, # 60 Hermila nn release 00 cap, 2 capsule Refill(s), Pharmacy: [facility], 170.18, cm, 01/16/21 8:57:00 CDT, Height, 86.364, kg, 01/16/21 8:57:00 CDT, Weight omeprazole 2021-0 Yes 40 mg = 1 Me moria 40 mg oral 7-27 cap, PO, l delayed 17:12: BID, # 60 Hermila nn release 00 cap, 2 capsule Refill(s), Pharmacy: [facility], 170.18, cm, 01/16/21 8:57:00 CDT, Height, 86.364, kg, 01/16/21 8:57:00 CDT, Weight omeprazole 2021-0 Yes 40 mg = 1 Me moria 40 mg oral 7-27 cap, PO, l delayed 17:12: BID, # 60 Hermila nn release 00 cap, 2 capsule Refill(s), Pharmacy: [facility], 170.18, cm, 01/16/21 8:57:00 CDT, Height, 86.364, kg, 01/16/21 8:57:00 CDT, Weight omeprazole 2021-0 Yes 40 mg = 1 Me moria 40 mg oral 7-27 cap, PO, l delayed 17:12: BID, # 60 Hermila nn release 00 cap, 2 capsule Refill(s), Pharmacy: [facility], 170.18, cm, 01/16/21 8:57:00 CDT, Height, 86.364, kg, 01/16/21 8:57:00 CDT, Weight omeprazole 2021-0 Yes 40 mg = 1 Me moria 40 mg oral 7-27 cap, PO, l delayed 17:12: BID, # 60 Hermila nn release 00 cap, 2 capsule Refill(s), Pharmacy: [facility], 170.18, cm, 01/16/21 8:57:00 CDT, Height, 86.364, kg, 01/16/21 8:57:00 CDT, Weight omeprazole 2021-0 Yes 40 mg = 1 Me moria 40 mg oral 7-27 cap, PO, l delayed 17:12: BID, # 60 Hermila nn release 00 cap, 2 capsule Refill(s), Pharmacy: [facility], 170.18, cm, 01/16/21 8:57:00 CDT, Height, 86.364, kg, 01/16/21 8:57:00 CDT, Weight omeprazole 2021-0 Yes 40 mg = 1 Me moria 40 mg oral 7-27 cap, PO, l delayed 17:12: BID, # 60 Hermila nn release 00 cap, 2 capsule Refill(s), Pharmacy: [facility], 170.18, cm, 01/16/21 8:57:00 CDT, Height, 86.364, kg, 01/16/21 8:57:00 CDT, Weight omeprazole 2021-0 Yes 40 mg = 1 Me moria 40 mg oral 7-27 cap, PO, l delayed 17:12: BID, # 60 Hermila nn release 00 cap, 2 capsule Refill(s), Pharmacy: [facility], 170.18, cm, 01/16/21 8:57:00 CDT, Height, 86.364, kg, 01/16/21 8:57:00 CDT, Weight omeprazole 2021-0 Yes 40 mg = 1 Me moria 40 mg oral 7-27 cap, PO, l delayed 17:12: BID, # 60 Hermila nn release 00 cap, 2 capsule Refill(s), Pharmacy: [facility], 170.18, cm, 01/16/21 8:57:00 CDT, Height, 86.364, kg, 01/16/21 8:57:00 CDT, Weight omeprazole 2021-0 Yes 40 mg = 1 Me moria 40 mg oral 7-27 cap, PO, l delayed 17:12: BID, # 60 Hermila nn release 00 cap, 2 capsule Refill(s), Pharmacy: [facility], 170.18, cm, 01/16/21 8:57:00 CDT, Height, 86.364, kg, 01/16/21 8:57:00 CDT, Weight omeprazole 2021-0 Yes 40 mg = 1 Me moria 40 mg oral 7-27 cap, PO, l delayed 17:12: BID, # 60 Hermila nn release 00 cap, 2 capsule Refill(s), Pharmacy: [facility], 170.18, cm, 01/16/21 8:57:00 CDT, Height, 86.364, kg, 01/16/21 8:57:00 CDT, Weight omeprazole 2021-0 Yes 40 mg = 1 Me moria 40 mg oral 7-27 cap, PO, l delayed 17:12: BID, # 60 Hermila nn release 00 cap, 2 capsule Refill(s), Pharmacy: [facility], 170.18, cm, 01/16/21 8:57:00 CDT, Height, 86.364, kg, 01/16/21 8:57:00 CDT, Weight Sodium 2020-0 No 1,000 mL, Memori a [place]loride 7-27 Rate: 75 l 0.9% IV 14:42: ml/hr, Ran 1,000 mL 00 Infuse over: 13.3 hr, Route: IV, Dosing Weight 86.364 kg, Total Volume: 1,000, Start date: 01/17/21 9:42:00 CDT, Duration: 1 day, Stop date: 01/18/21 9:41:00 CDT, BSA: 2.04 m2, 0 Sodium 1-0 No 1,000 mL, [facility] a [place] 7-27 Rate: 75 l 0.9% IV 14:42: ml/hr, Ran 1,000 mL 00 Infuse over: 13.3 hr, Route: IV, Dosing Weight 86.364 kg, Total Volume: 1,000, Start date: 01/17/21 9:42:00 CDT, Duration: 1 day, Stop date: 01/18/21 9:41:00 CDT, BSA: 2.04 m2, 0 Sodium 1-0 No 1,000 mL, [facility] a [place] 7-27 Rate: 75 l 0.9% IV 14:42: ml/hr, Ran 1,000 mL 00 Infuse over: 13.3 hr, Route: IV, Dosing Weight 86.364 kg, Total Volume: 1,000, Start date: 01/17/21 9:42:00 CDT, Duration: 1 day, Stop date: 01/18/21 9:41:00 CDT, BSA: 2.04 m2, 0 Sodium 2021-0 No 1,000 mL, [facility] a [place] 7-27 Rate: 75 l 0.9% IV 14:42: ml/hr, Ran 1,000 mL 00 Infuse over: 13.3 hr, Route: IV, Dosing Weight 86.364 kg, Total Volume: 1,000, Start date: 01/17/21 9:42:00 CDT, Duration: 1 day, Stop date: 01/18/21 9:41:00 CDT, BSA: 2.04 m2, 0 Sodium 2021-0 No 1,000 mL, [facility] a [place] 7-27 Rate: 75 l 0.9% IV 14:42: ml/hr, Ran 1,000 mL 00 Infuse over: 13.3 hr, Route: IV, Dosing Weight 86.364 kg, Total Volume: 1,000, Start date: 01/17/21 9:42:00 CDT, Duration: 1 day, Stop date: 01/18/21 9:41:00 CDT, BSA: 2.04 m2, 0 Sodium 2021-0 No 1,000 mL, [facility] a [place] 7-27 Rate: 75 l 0.9% IV 14:42: ml/hr, Ran 1,000 mL 00 Infuse over: 13.3 hr, Route: IV, Dosing Weight 86.364 kg, Total Volume: 1,000, Start date: 01/17/21 9:42:00 CDT, Duration: 1 day, Stop date: 01/18/21 9:41:00 CDT, BSA: 2.04 m2, 0 Sodium 2021-0 No 1,000 mL, [facility] a [place] 7-27 Rate: 75 l 0.9% IV 14:42: ml/hr, Ran 1,000 mL 00 Infuse over: 13.3 hr, Route: IV, Dosing Weight 86.364 kg, Total Volume: 1,000, Start date: 01/17/21 9:42:00 CDT, Duration: 1 day, Stop date: 01/18/21 9:41:00 CDT, BSA: 2.04 m2, 0 Sodium 2021-0 No 1,000 mL, [facility] a [place] 7-27 Rate: 75 l 0.9% IV 14:42: ml/hr, Ran 1,000 mL 00 Infuse over: 13.3 hr, Route: IV, Dosing Weight 86.364 kg, Total Volume: 1,000, Start date: 01/17/21 9:42:00 CDT, Duration: 1 day, Stop date: 01/18/21 9:41:00 CDT, BSA: 2.04 m2, 0 Sodium 2021-0 No 1,000 mL, [facility] a [place] 7-27 Rate: 75 l 0.9% IV 14:42: ml/hr, Ran 1,000 mL 00 Infuse over: 13.3 hr, Route: IV, Dosing Weight 86.364 kg, Total Volume: 1,000, Start date: 01/17/21 9:42:00 CDT, Duration: 1 day, Stop date: 01/18/21 9:41:00 CDT, BSA: 2.04 m2, 0 Sodium 2021-0 No 1,000 mL, [facility] a [place] 7-27 Rate: 75 l 0.9% IV 14:42: ml/hr, Ran 1,000 mL 00 Infuse over: 13.3 hr, Route: IV, Dosing Weight 86.364 kg, Total Volume: 1,000, Start date: 01/17/21 9:42:00 CDT, Duration: 1 day, Stop date: 01/18/21 9:41:00 CDT, BSA: 2.04 m2, 0 Sodium 2021-0 No 1,000 mL, Mem[facility] a [place] 7-27 Rate: 75 l 0.9% IV 14:42: ml/hr, [place] 1,000 mL 00 Infuse over: 13.3 hr, Route: IV, Dosing Weight 86.364 kg, Total Volume: 1,000, Start date: 01/17/21 9:42:00 CDT, Duration: 1 day, Stop date: 01/18/21 9:41:00 CDT, BSA: 2.04 m2, 0 Sodium 2021-0 No 1,000 mL, [facility] a [place] 7-27 Rate: 75 l 0.9% IV 14:42: ml/hr, Ran 1,000 mL 00 Infuse over: 13.3 hr, Route: IV, Dosing Weight 86.364 kg, Total Volume: 1,000, Start date: 01/17/21 9:42:00 CDT, Duration: 1 day, Stop date: 01/18/21 9:41:00 CDT, BSA: 2.04 m2, 0 Sodium 2021-0 No 1,000 mL, [facility] a [place] 7-27 Rate: 75 l 0.9% IV 14:42: ml/hr, Ran 1,000 mL 00 Infuse over: 13.3 hr, Route: IV, Dosing Weight 86.364 kg, Total Volume: 1,000, Start date: 01/17/21 9:42:00 CDT, Duration: 1 day, Stop date: 01/18/21 9:41:00 CDT, BSA: 2.04 m2, 0 Sodium 2021-0 No 1,000 mL, Mem[facility] a [place] 7-27 Rate: 75 l 0.9% IV 14:42: ml/hr, [place] 1,000 mL 00 Infuse over: 13.3 hr, Route: IV, Dosing Weight 86.364 kg, Total Volume: 1,000, Start date: 01/17/21 9:42:00 CDT, Duration: 1 day, Stop date: 01/18/21 9:41:00 CDT, BSA: 2.04 m2, 0 Sodium 2021-0 No 1,000 mL, Mem[facility] a [place] 7-27 Rate: 75 l 0.9% IV 14:42: ml/hr, [place] 1,000 mL 00 Infuse over: 13.3 hr, Route: IV, Dosing Weight 86.364 kg, Total Volume: 1,000, Start date: 01/17/21 9:42:00 CDT, Duration: 1 day, Stop date: 01/18/21 9:41:00 CDT, BSA: 2.04 m2, 0 Sodium 2021-0 No 1,000 mL, [facility] a [place] 7-27 Rate: 75 l 0.9% IV 14:42: ml/hr, [place] 1,000 mL 00 Infuse over: 13.3 hr, Route: IV, Dosing Weight 86.364 kg, Total Volume: 1,000, Start date: 01/17/21 9:42:00 CDT, Duration: 1 day, Stop date: 01/18/21 9:41:00 CDT, BSA: 2.04 m2, 0 Sodium 2021-0 No 1,000 mL, [facility] a [place] 7-27 Rate: 75 l 0.9% IV 14:42: ml/hr, [place] 1,000 mL 00 Infuse over: 13.3 hr, Route: IV, Dosing Weight 86.364 kg, Total Volume: 1,000, Start date: 01/17/21 9:42:00 CDT, Duration: 1 day, Stop date: 01/18/21 9:41:00 CDT, BSA: 2.04 m2, 0 Sodium 2021-0 No 1,000 mL, [facility] a [place] 7-27 Rate: 75 l 0.9% IV 14:42: ml/hr, Ran 1,000 mL 00 Infuse over: 13.3 hr, Route: IV, Dosing Weight 86.364 kg, Total Volume: 1,000, Start date: 01/17/21 9:42:00 CDT, Duration: 1 day, Stop date: 01/18/21 9:41:00 CDT, BSA: 2.04 m2, 0 Sodium 2021-0 No 1,000 mL, [facility] [place] 7-27 Rate: 75 l 0.9% IV 14:42: ml/hr, [place] 1,000 mL 00 Infuse over: 13.3 hr, Route: IV, Dosing Weight 86.364 kg, Total Volume: 1,000, Start date: 01/17/21 9:42:00 CDT, Duration: 1 day, Stop date: 01/18/21 9:41:00 CDT, BSA: 2.04 m2, 0 Sodium 2021-0 No 1,000 mL, [facility] [place] 7-27 Rate: 75 l 0.9% IV 14:42: ml/hr, [place] 1,000 mL 00 Infuse over: 13.3 hr, Route: IV, Dosing Weight 86.364 kg, Total Volume: 1,000, Start date: 01/17/21 9:42:00 CDT, Duration: 1 day, Stop date: 01/18/21 9:41:00 CDT, BSA: 2.04 m2, 0 Sodium 2021-0 No 1,000 mL, [facility] [place] 7-27 Rate: 75 l 0.9% IV 14:42: ml/hr, [place] 1,000 mL 00 Infuse over: 13.3 hr, Route: IV, Dosing Weight 86.364 kg, Total Volume: 1,000, Start date: 01/17/21 9:42:00 CDT, Duration: 1 day, Stop date: 01/18/21 9:41:00 CDT, BSA: 2.04 m2, 0 Sodium 2021-0 No 1,000 mL, [facility] [place] 7-27 Rate: 75 l 0.9% IV 14:42: ml/hr, Ran 1,000 mL 00 Infuse over: 13.3 hr, Route: IV, Dosing Weight 86.364 kg, Total Volume: 1,000, Start date: 01/17/21 9:42:00 CDT, Duration: 1 day, Stop date: 01/18/21 9:41:00 CDT, BSA: 2.04 m2, 0 Sodium 2021-0 No 1,000 mL, [facility] [place] 7-27 Rate: 75 l 0.9% IV 14:42: ml/hr, Ran 1,000 mL 00 Infuse over: 13.3 hr, Route: IV, Dosing Weight 86.364 kg, Total Volume: 1,000, Start date: 01/17/21 9:42:00 CDT, Duration: 1 day, Stop date: 01/18/21 9:41:00 CDT, BSA: 2.04 m2, 0 Sodium 2021-0 No 1,000 mL, [facility] [place] 7-27 Rate: 75 l 0.9% IV 14:42: ml/hr, Ran 1,000 mL 00 Infuse over: 13.3 hr, Route: IV, Dosing Weight 86.364 kg, Total Volume: 1,000, Start date: 01/17/21 9:42:00 CDT, Duration: 1 day, Stop date: 01/18/21 9:41:00 CDT, BSA: 2.04 m2, 0 Sodium 2021-0 No 1,000 mL, [facility] [place] 7-27 Rate: 75 l 0.9% IV 14:42: ml/hr, [place] 1,000 mL 00 Infuse over: 13.3 hr, Route: IV, Dosing Weight 86.364 kg, Total Volume: 1,000, Start date: 01/17/21 9:42:00 CDT, Duration: 1 day, Stop date: 01/18/21 9:41:00 CDT, BSA: 2.04 m2, 0 Sodium 2021-0 No 1,000 mL, [facility] [place] 7-27 Rate: 75 l 0.9% IV 14:42: ml/hr, [place] 1,000 mL 00 Infuse over: 13.3 hr, Route: IV, Dosing Weight 86.364 kg, Total Volume: 1,000, Start date: 01/17/21 9:42:00 CDT, Duration: 1 day, Stop date: 01/18/21 9:41:00 CDT, BSA: 2.04 m2, 0 Sodium 2021-0 No 1,000 mL, [facility] [place] 7-27 Rate: 75 l 0.9% IV 14:42: ml/hr, [place] 1,000 mL 00 Infuse over: 13.3 hr, Route: IV, Dosing Weight 86.364 kg, Total Volume: 1,000, Start date: 01/17/21 9:42:00 CDT, Duration: 1 day, Stop date: 01/18/21 9:41:00 CDT, BSA: 2.04 m2, 0 Sodium 2021-0 No 1,000 mL, [facility] [place] 7-27 Rate: 75 l 0.9% IV 14:42: ml/hr, [place] 1,000 mL 00 Infuse over: 13.3 hr, Route: IV, Dosing Weight 86.364 kg, Total Volume: 1,000, Start date: 01/17/21 9:42:00 CDT, Duration: 1 day, Stop date: 01/18/21 9:41:00 CDT, BSA: 2.04 m2, 0 Sodium 2021-0 No 1,000 mL, [facility] [place] 7-27 Rate: 75 l 0.9% IV 14:42: ml/hr, [place] 1,000 mL 00 Infuse over: 13.3 hr, Route: IV, Dosing Weight 86.364 kg, Total Volume: 1,000, Start date: 01/17/21 9:42:00 CDT, Duration: 1 day, Stop date: 01/18/21 9:41:00 CDT, BSA: 2.04 m2, 0 Sodium 2021-0 No 1,000 mL, [facility] [place] 7-27 Rate: 75 l 0.9% IV 14:42: ml/hr, [place] 1,000 mL 00 Infuse over: 13.3 hr, Route: IV, Dosing Weight 86.364 kg, Total Volume: 1,000, Start date: 01/17/21 9:42:00 CDT, Duration: 1 day, Stop date: 01/18/21 9:41:00 CDT, BSA: 2.04 m2, 0 Sodium 2021-0 No 1,000 mL, [facility] [place] 7-27 Rate: 75 l 0.9% IV 14:42: ml/hr, [place] 1,000 mL 00 Infuse over: 13.3 hr, Route: IV, Dosing Weight 86.364 kg, Total Volume: 1,000, Start date: 01/17/21 9:42:00 CDT, Duration: 1 day, Stop date: 01/18/21 9:41:00 CDT, BSA: 2.04 m2, 0 Sodium 2021-0 No 1,000 mL, [facility] [place] 7-27 Rate: 75 l 0.9% IV 14:42: ml/hr, [place] 1,000 mL 00 Infuse over: 13.3 hr, Route: IV, Dosing Weight 86.364 kg, Total Volume: 1,000, Start date: 01/17/21 9:42:00 CDT, Duration: 1 day, Stop date: 01/18/21 9:41:00 CDT, BSA: 2.04 m2, 0 Sodium 2021-0 No 1,000 mL, [facility] [place] 7-27 Rate: 75 l 0.9% IV 14:42: ml/hr, [place] 1,000 mL 00 Infuse over: 13.3 hr, Route: IV, Dosing Weight 86.364 kg, Total Volume: 1,000, Start date: 01/17/21 9:42:00 CDT, Duration: 1 day, Stop date: 01/18/21 9:41:00 CDT, BSA: 2.04 m2, 0 Sodium 2021-0 No 1,000 mL, [facility] [place] 7-27 Rate: 75 l 0.9% IV 14:42: ml/hr, [place] 1,000 mL 00 Infuse over: 13.3 hr, Route: IV, Dosing Weight 86.364 kg, Total Volume: 1,000, Start date: 01/17/21 9:42:00 CDT, Duration: 1 day, Stop date: 01/18/21 9:41:00 CDT, BSA: 2.04 m2, 0 Sodium 2021-0 No 1,000 mL, [facility] [place] 7-27 Rate: 75 l 0.9% IV 14:42: ml/hr, [place] 1,000 mL 00 Infuse over: 13.3 hr, Route: IV, Dosing Weight 86.364 kg, Total Volume: 1,000, Start date: 01/17/21 9:42:00 CDT, Duration: 1 day, Stop date: 01/18/21 9:41:00 CDT, BSA: 2.04 m2, 0 Sodium 2021-0 No 1,000 mL, [facility] [place] 7-27 Rate: 75 l 0.9% IV 14:42: ml/hr, [place] 1,000 mL 00 Infuse over: 13.3 hr, Route: IV, Dosing Weight 86.364 kg, Total Volume: 1,000, Start date: 01/17/21 9:42:00 CDT, Duration: 1 day, Stop date: 01/18/21 9:41:00 CDT, BSA: 2.04 m2, 0 Sodium 2021-0 No 1,000 mL, [facility] [place] 7-27 Rate: 75 l 0.9% IV 14:42: ml/hr, [place] 1,000 mL 00 Infuse over: 13.3 hr, Route: IV, Dosing Weight 86.364 kg, Total Volume: 1,000, Start date: 01/17/21 9:42:00 CDT, Duration: 1 day, Stop date: 01/18/21 9:41:00 CDT, BSA: 2.04 m2, 0 Sodium 2021-0 No 1,000 mL, [facility] [place] 7-27 Rate: 75 l 0.9% IV 14:42: ml/hr, [place] 1,000 mL 00 Infuse over: 13.3 hr, Route: IV, Dosing Weight 86.364 kg, Total Volume: 1,000, Start date: 01/17/21 9:42:00 CDT, Duration: 1 day, Stop date: 01/18/21 9:41:00 CDT, BSA: 2.04 m2, 0 Sodium 2021-0 No 1,000 mL, [facility] [place] 7-27 Rate: 75 l 0.9% IV 14:42: ml/hr, [place] 1,000 mL 00 Infuse over: 13.3 hr, Route: IV, Dosing Weight 86.364 kg, Total Volume: 1,000, Start date: 01/17/21 9:42:00 CDT, Duration: 1 day, Stop date: 01/18/21 9:41:00 CDT, BSA: 2.04 m2, 0 Sodium 2020-0 No 1,000 mL, Memori a Chloride 7-27 Rate: 75 l 0.9% IV 14:42: ml/hr, [place] 1,000 mL 00 Infuse over: 13.3 hr, Route: IV, Dosing Weight 86.364 kg, Total Volume: 1,000, Start date: 01/17/21 9:42:00 CDT, Duration: 1 day, Stop date: 01/18/21 9:41:00 CDT, BSA: 2.04 m2, 0 Sodium 2020-0 No 1,000 mL, Memori a Chloride 7-27 Rate: 75 l 0.9% IV 14:42: ml/hr, [place] 1,000 mL 00 Infuse over: 13.3 hr, Route: IV, Dosing Weight 86.364 kg, Total Volume: 1,000, Start date: 01/17/21 9:42:00 CDT, Duration: 1 day, Stop date: 01/18/21 9:41:00 CDT, BSA: 2.04 m2, 0 brinzolamid 0 Yes [facility] ([facility]) 1 7-12 Health % 15:00: ophthalmic 27 suspension brinzolamid 2020-0 Yes [facility] ([facility]) 1 7-12 Health % 15:00: ophthalmic 27 suspension brinzolamid 0 Yes [facility] ([facility]) 1 7-12 Health % 10:00: ophthalmic 27 suspension brinzolamid 2020-0 Yes [facility] ([facility]) 1 7-12 Health % 10:00: ophthalmic 27 suspension brinzolamid 2020-0 Yes [facility] ([facility]) 1 7-12 Health % 10:00: ophthalmic 27 suspension brinzolamid 2020-0 Yes [facility] ([facility]) 1 7-12 Health % 10:00: ophthalmic 27 suspension omeprazole 0 Yes 40 mg = 1 Me moria 40 mg oral 6-25 cap, PO, l delayed 15:58: Daily, # Fuad n release 00 90 cap, 1 capsule Refill(s), Pharmacy: [facility], 170.18, cm, 12/08/20 16:04:00 CDT, Height, 87.756, kg, 12/08/20 16:04:00 CDT, Weight omeprazole 2021-0 Yes 40 mg = 1 Me moria 40 mg oral 6-25 cap, PO, l delayed 15:58: Daily, # Fuad n release 00 90 cap, 1 capsule Refill(s), Pharmacy: [facility], 170.18, cm, 12/08/20 16:04:00 CDT, Height, 87.756, kg, 12/08/20 16:04:00 CDT, Weight omeprazole 2021-0 Yes 40 mg = 1 Me moria 40 mg oral 6-25 cap, PO, l delayed 15:58: Daily, # Fuad n release 00 90 cap, 1 capsule Refill(s), Pharmacy: [facility], 170.18, cm, 12/08/20 16:04:00 CDT, Height, 87.756, kg, 12/08/20 16:04:00 CDT, Weight omeprazole 2021-0 Yes 40 mg = 1 Me moria 40 mg oral 6-25 cap, PO, l delayed 15:58: Daily, # Fuad n release 00 90 cap, 1 capsule Refill(s), Pharmacy: [facility], 170.18, cm, 12/08/20 16:04:00 CDT, Height, 87.756, kg, 12/08/20 16:04:00 CDT, Weight omeprazole 2021-0 Yes 40 mg = 1 Me moria 40 mg oral 6-25 cap, PO, l delayed 15:58: Daily, # Fu[place] n release 00 90 cap, 1 capsule Refill(s), Pharmacy: [facility], 170.18, cm, 12/08/20 16:04:00 CDT, Height, 87.756, kg, 12/08/20 16:04:00 CDT, Weight omeprazole 2021-0 Yes 40 mg = 1 Me moria 40 mg oral 6-25 cap, PO, l delayed 15:58: Daily, # Fuad n release 00 90 cap, 1 capsule Refill(s), Pharmacy: [facility], 170.18, cm, 12/08/20 16:04:00 CDT, Height, 87.756, kg, 12/08/20 16:04:00 CDT, Weight omeprazole 2021-0 Yes 40 mg = 1 Me moria 40 mg oral 6-25 cap, PO, l delayed 15:58: Daily, # Fu[place] n release 00 90 cap, 1 capsule Refill(s), Pharmacy: [facility], 170.18, cm, 12/08/20 16:04:00 CDT, Height, 87.756, kg, 12/08/20 16:04:00 CDT, Weight omeprazole 2021-0 Yes 40 mg = 1 Me moria 40 mg oral 6-25 cap, PO, l delayed 15:58: Daily, # Fu[place] n release 00 90 cap, 1 capsule Refill(s), Pharmacy: [facility], 170.18, cm, 12/08/20 16:04:00 CDT, Height, 87.756, kg, 12/08/20 16:04:00 CDT, Weight omeprazole 2021-0 Yes 40 mg = 1 Me moria 40 mg oral 6-25 cap, PO, l delayed 15:58: Daily, # Fuad n release 00 90 cap, 1 capsule Refill(s), Pharmacy: [facility], 170.18, cm, 12/08/20 16:04:00 CDT, Height, 87.756, kg, 12/08/20 16:04:00 CDT, Weight omeprazole 2021-0 Yes 40 mg = 1 Me moria 40 mg oral 6-25 cap, PO, l delayed 15:58: Daily, # Fu[place] n release 00 90 cap, 1 capsule Refill(s), Pharmacy: [facility], 170.18, cm, 12/08/20 16:04:00 CDT, Height, 87.756, kg, 12/08/20 16:04:00 CDT, Weight omeprazole 2021-0 Yes 40 mg = 1 Me mor[place] 40 mg oral 6-25 cap, PO, l delayed 15:58: Daily, # Fu[place] n release 00 90 cap, 1 capsule Refill(s), [facility] [facility], 170.18, cm, 12/08/20 16:04:00 CDT, Height, 87.756, kg, 12/08/20 16:04:00 CDT, Weight omeprazole 2021-0 Yes 40 mg = 1 Me moria 40 mg oral 6-25 cap, PO, l delayed 15:58: Daily, # Fuad n release 00 90 cap, 1 capsule Refill(s), Pharmacy: [facility], 170.18, cm, 12/08/20 16:04:00 CDT, Height, 87.756, kg, 12/08/20 16:04:00 CDT, Weight omeprazole 2021-0 Yes 40 mg = 1 [place] 40 mg oral 6-25 cap, PO, l delayed 15:58: Daily, # Fuad n release 00 90 cap, 1 capsule Refill(s), Pharmacy: [facility], 170.18, cm, 12/08/20 16:04:00 CDT, Height, 87.756, kg, 12/08/20 16:04:00 CDT, Weight omeprazole 2021-0 Yes 40 mg = 1 [place] 40 mg oral 6-25 cap, PO, l delayed 15:58: Daily, # Fuad n release 00 90 cap, 1 capsule Refill(s), Pharmacy: [facility], 170.18, cm, 12/08/20 16:04:00 CDT, Height, 87.756, kg, 12/08/20 16:04:00 CDT, Weight omeprazole 2021-0 Yes 40 mg = 1 [place] 40 mg oral 6-25 cap, PO, l delayed 15:58: Daily, # Fuad n release 00 90 cap, 1 capsule Refill(s), Pharmacy: [facility], 170.18, cm, 12/08/20 16:04:00 CDT, Height, 87.756, kg, 12/08/20 16:04:00 CDT, Weight omeprazole 2021-0 Yes 40 mg = 1 [place] 40 mg oral 6-25 cap, PO, l delayed 15:58: Daily, # Fuad n release 00 90 cap, 1 capsule Refill(s), Pharmacy: [facility], 170.18, cm, 12/08/20 16:04:00 CDT, Height, 87.756, kg, 12/08/20 16:04:00 CDT, Weight omeprazole 2021-0 Yes 40 mg = 1 Me [place] 40 mg oral 6-25 cap, PO, l delayed 15:58: Daily, # Fuad n release 00 90 cap, 1 capsule Refill(s), Pharmacy: [facility], 170.18, cm, 12/08/20 16:04:00 CDT, Height, 87.756, kg, 12/08/20 16:04:00 CDT, Weight omeprazole 2021-0 Yes 40 mg = 1 Me mor[place] 40 mg oral 6-25 cap, PO, l delayed 15:58: Daily, # Fuad n release 00 90 cap, 1 capsule Refill(s), Pharmacy: [facility], 170.18, cm, 12/08/20 16:04:00 CDT, Height, 87.756, kg, 12/08/20 16:04:00 CDT, Weight omeprazole 2021-0 Yes 40 mg = 1 Me [place] 40 mg oral 6-25 cap, PO, l delayed 15:58: Daily, # Fuad n release 00 90 cap, 1 capsule Refill(s), Pharmacy: [facility], 170.18, cm, 12/08/20 16:04:00 CDT, Height, 87.756, kg, 12/08/20 16:04:00 CDT, Weight omeprazole 2021-0 Yes 40 mg = 1 Me [place] 40 mg oral 6-25 cap, PO, l delayed 15:58: Daily, # Fuad n release 00 90 cap, 1 capsule Refill(s), Pharmacy: [facility], 170.18, cm, 12/08/20 16:04:00 CDT, Height, 87.756, kg, 12/08/20 16:04:00 CDT, Weight omeprazole 2021-0 Yes 40 mg = 1 [place] 40 mg oral 6-25 cap, PO, l delayed 15:58: Daily, # Fuad n release 00 90 cap, 1 capsule Refill(s), Pharmacy: [facility], 170.18, cm, 12/08/20 16:04:00 CDT, Height, 87.756, kg, 12/08/20 16:04:00 CDT, Weight omeprazole 2021-0 Yes 40 mg = 1 [place] 40 mg oral 6-25 cap, PO, l delayed 15:58: Daily, # Fuad n release 00 90 cap, 1 capsule Refill(s), Pharmacy: [facility], 170.18, cm, 12/08/20 16:04:00 CDT, Height, 87.756, kg, 12/08/20 16:04:00 CDT, Weight omeprazole 2021-0 Yes 40 mg = 1 Me mor[place] 40 mg oral 6-25 cap, PO, l delayed 15:58: Daily, # Fuad n release 00 90 cap, 1 capsule Refill(s), Pharmacy: [facility], 170.18, cm, 12/08/20 16:04:00 CDT, Height, 87.756, kg, 12/08/20 16:04:00 CDT, Weight omeprazole 2021-0 Yes 40 mg = 1 Me [place] 40 mg oral 6-25 cap, PO, l delayed 15:58: Daily, # Fuad n release 00 90 cap, 1 capsule Refill(s), Pharmacy: [facility], 170.18, cm, 12/08/20 16:04:00 CDT, Height, 87.756, kg, 12/08/20 16:04:00 CDT, Weight omeprazole 2021-0 Yes 40 mg = 1 Me mor[place] 40 mg oral 6-25 cap, PO, l delayed 15:58: Daily, # Fuad n release 00 90 cap, 1 capsule Refill(s), Pharmacy: [facility], 170.18, cm, 12/08/20 16:04:00 CDT, Height, 87.756, kg, 12/08/20 16:04:00 CDT, Weight omeprazole 2021-0 Yes 40 mg = 1 Me mor[place] 40 mg oral 6-25 cap, PO, l delayed 15:58: Daily, # Fuad n release 00 90 cap, 1 capsule Refill(s), Pharmacy: [facility], 170.18, cm, 12/08/20 16:04:00 CDT, Height, 87.756, kg, 12/08/20 16:04:00 CDT, Weight omeprazole 2021-0 Yes 40 mg = 1 Me mor[place] 40 mg oral 6-25 cap, PO, l delayed 15:58: Daily, # Fuad n release 00 90 cap, 1 capsule Refill(s), Pharmacy: [facility], 170.18, cm, 12/08/20 16:04:00 CDT, Height, 87.756, kg, 12/08/20 16:04:00 CDT, Weight omeprazole 2021-0 Yes 40 mg = 1 Me mor[place] 40 mg oral 6-25 cap, PO, l delayed 15:58: Daily, # Fuad n release 00 90 cap, 1 capsule Refill(s), Pharmacy: [facility], 170.18, cm, 12/08/20 16:04:00 CDT, Height, 87.756, kg, 12/08/20 16:04:00 CDT, Weight omeprazole 2021-0 Yes 40 mg = 1 Me [place] 40 mg oral 6-25 cap, PO, l delayed 15:58: Daily, # Fuad n release 00 90 cap, 1 capsule Refill(s), Pharmacy: [facility], 170.18, cm, 12/08/20 16:04:00 CDT, Height, 87.756, kg, 12/08/20 16:04:00 CDT, Weight omeprazole 2021-0 Yes 40 mg = 1 Me mor[place] 40 mg oral 6-25 cap, PO, l delayed 15:58: Daily, # Fuad n release 00 90 cap, 1 capsule Refill(s), Pharmacy: [facility], 170.18, cm, 12/08/20 16:04:00 CDT, Height, 87.756, kg, 12/08/20 16:04:00 CDT, Weight omeprazole 2021-0 Yes 40 mg = 1 Me moria 40 mg oral 6-25 cap, PO, l delayed 15:58: Daily, # Fuad n release 00 90 cap, 1 capsule Refill(s), Pharmacy: [facility], 170.18, cm, 12/08/20 16:04:00 CDT, Height, 87.756, kg, 12/08/20 16:04:00 CDT, Weight omeprazole 2021-0 Yes 40 mg = 1 Me moria 40 mg oral 6-25 cap, PO, l delayed 15:58: Daily, # Fuad n release 00 90 cap, 1 capsule Refill(s), Pharmacy: [facility], 170.18, cm, 12/08/20 16:04:00 CDT, Height, 87.756, kg, 12/08/20 16:04:00 CDT, Weight omeprazole 2021-0 Yes 40 mg = 1 Me moria 40 mg oral 6-25 cap, PO, l delayed 15:58: Daily, # Fuad n release 00 90 cap, 1 capsule Refill(s), Pharmacy: [facility], 170.18, cm, 12/08/20 16:04:00 CDT, Height, 87.756, kg, 12/08/20 16:04:00 CDT, Weight omeprazole 2021-0 Yes 40 mg = 1 Me moria 40 mg oral 6-25 cap, PO, l delayed 15:58: Daily, # Fuad n release 00 90 cap, 1 capsule Refill(s), Pharmacy: [facility], 170.18, cm, 12/08/20 16:04:00 CDT, Height, 87.756, kg, 12/08/20 16:04:00 CDT, Weight omeprazole 2021-0 Yes 40 mg = 1 Me moria 40 mg oral 6-25 cap, PO, l delayed 15:58: Daily, # Fuad n release 00 90 cap, 1 capsule Refill(s), Pharmacy: [facility], 170.18, cm, 12/08/20 16:04:00 CDT, Height, 87.756, kg, 12/08/20 16:04:00 CDT, Weight omeprazole 2021-0 Yes 40 mg = 1 Me moria 40 mg oral 6-25 cap, PO, l delayed 15:58: Daily, # Fuad n release 00 90 cap, 1 capsule Refill(s), Pharmacy: [facility], 170.18, cm, 12/08/20 16:04:00 CDT, Height, 87.756, kg, 12/08/20 16:04:00 CDT, Weight omeprazole 2021-0 Yes 40 mg = 1 Me moria 40 mg oral 6-25 cap, PO, l delayed 15:58: Daily, # Fuad n release 00 90 cap, 1 capsule Refill(s), Pharmacy: [facility], 170.18, cm, 12/08/20 16:04:00 CDT, Height, 87.756, kg, 12/08/20 16:04:00 CDT, Weight omeprazole 2021-0 Yes 40 mg = 1 Me moria 40 mg oral 6-25 cap, PO, l delayed 15:58: Daily, # Fuad n release 00 90 cap, 1 capsule Refill(s), Pharmacy: [facility], 170.18, cm, 12/08/20 16:04:00 CDT, Height, 87.756, kg, 12/08/20 16:04:00 CDT, Weight omeprazole 2021-0 Yes 40 mg = 1 Me moria 40 mg oral 6-25 cap, PO, l delayed 15:58: Daily, # Fuad n release 00 90 cap, 1 capsule Refill(s), Pharmacy: [facility], 170.18, cm, 12/08/20 16:04:00 CDT, Height, 87.756, kg, 12/08/20 16:04:00 CDT, Weight omeprazole 2021-0 Yes 40 mg = 1 Me moria 40 mg oral 6-25 cap, PO, l delayed 15:58: Daily, # Fuad n release 00 90 cap, 1 capsule Refill(s), Pharmacy: [facility], 170.18, cm, 12/08/20 16:04:00 CDT, Height, 87.756, kg, 12/08/20 16:04:00 CDT, Weight omeprazole 2021-0 Yes 40 mg = 1 Me moria 40 mg oral 6-25 cap, PO, l delayed 15:58: Daily, # Fuad n release 00 90 cap, 1 capsule Refill(s), Pharmacy: [facility], 170.18, cm, 12/08/20 16:04:00 CDT, Height, 87.756, kg, 12/08/20 16:04:00 CDT, Weight Sodium 2021-0 No 1,000 mL, [facility] 6-25 Rate: 21 l 0.9% IV 14:22: ml/hr, [place] 1,000 mL 00 Infuse over: 47.6 hr, Route: IV, Dosing Weight 87.727 kg, Total Volume: 1,000, Start date: 12/16/20 9:22:00 CDT, Duration: 30 day, Stop date: 01/15/21 9:21:00 CDT, BSA: 2.06 m2, 0 Sodium 2021-0 No 1,000 mL, [facility] [place] 6-25 Rate: 21 l 0.9% IV 14:22: ml/hr, [place] 1,000 mL 00 Infuse over: 47.6 hr, Route: IV, Dosing Weight 87.727 kg, Total Volume: 1,000, Start date: 12/16/20 9:22:00 CDT, Duration: 30 day, Stop date: 01/15/21 9:21:00 CDT, BSA: 2.06 m2, 0 Sodium 2021-0 No 1,000 mL, [facility] [place] 6-25 Rate: 21 l 0.9% IV 14:22: ml/hr, [place] 1,000 mL 00 Infuse over: 47.6 hr, Route: IV, Dosing Weight 87.727 kg, Total Volume: 1,000, Start date: 12/16/20 9:22:00 CDT, Duration: 30 day, Stop date: 01/15/21 9:21:00 CDT, BSA: 2.06 m2, 0 Sodium 2021-0 No 1,000 mL, [facility] [place] 6-25 Rate: 21 l 0.9% IV 14:22: ml/hr, [place] 1,000 mL 00 Infuse over: 47.6 hr, Route: IV, Dosing Weight 87.727 kg, Total Volume: 1,000, Start date: 12/16/20 9:22:00 CDT, Duration: 30 day, Stop date: 01/15/21 9:21:00 CDT, BSA: 2.06 m2, 0 Sodium 2021-0 No 1,000 mL, [place] [facility] [place] 6-25 Rate: 21 l 0.9% IV 14:22: ml/hr, [place] 1,000 mL 00 Infuse over: 47.6 hr, Route: IV, Dosing Weight 87.727 kg, Total Volume: 1,000, Start date: 12/16/20 9:22:00 CDT, Duration: 30 day, Stop date: 01/15/21 9:21:00 CDT, BSA: 2.06 m2, 0 Sodium 2021-0 No 1,000 mL, [place] [facility] [place] 6-25 Rate: 21 l 0.9% IV 14:22: ml/hr, [place] 1,000 mL 00 Infuse over: 47.6 hr, Route: IV, Dosing Weight 87.727 kg, Total Volume: 1,000, Start date: 12/16/20 9:22:00 CDT, Duration: 30 day, Stop date: 01/15/21 9:21:00 CDT, BSA: 2.06 m2, 0 Sodium 2021-0 No 1,000 mL, [place] [facility] [place] 6-25 Rate: 21 l 0.9% IV 14:22: ml/hr, [place] 1,000 mL 00 Infuse over: 47.6 hr, Route: IV, Dosing Weight 87.727 kg, Total Volume: 1,000, Start date: 12/16/20 9:22:00 CDT, Duration: 30 day, Stop date: 01/15/21 9:21:00 CDT, BSA: 2.06 m2, 0 Sodium 2021-0 No 1,000 mL, [place] [facility] [place] 6-25 Rate: 21 l 0.9% IV 14:22: ml/hr, [place] 1,000 mL 00 Infuse over: 47.6 hr, Route: IV, Dosing Weight 87.727 kg, Total Volume: 1,000, Start date: 12/16/20 9:22:00 CDT, Duration: 30 day, Stop date: 01/15/21 9:21:00 CDT, BSA: 2.06 m2, 0 Sodium 2021-0 No 1,000 mL, [place] [facility] [place] 6-25 Rate: 21 l 0.9% IV 14:22: ml/hr, [place] 1,000 mL 00 Infuse over: 47.6 hr, Route: IV, Dosing Weight 87.727 kg, Total Volume: 1,000, Start date: 12/16/20 9:22:00 CDT, Duration: 30 day, Stop date: 01/15/21 9:21:00 CDT, BSA: 2.06 m2, 0 Sodium 2021-0 No 1,000 mL, [place] 6-25 Rate: 21 l 0.9% IV 14:22: ml/hr, [place] 1,000 mL 00 Infuse over: 47.6 hr, Route: IV, Dosing Weight 87.727 kg, Total Volume: 1,000, Start date: 12/16/20 9:22:00 CDT, Duration: 30 day, Stop date: 01/15/21 9:21:00 CDT, BSA: 2.06 m2, 0 Sodium 2021-0 No 1,000 mL, [place] 6-25 Rate: 21 l 0.9% IV 14:22: ml/hr, [place] 1,000 mL 00 Infuse over: 47.6 hr, Route: IV, Dosing Weight 87.727 kg, Total Volume: 1,000, Start date: 12/16/20 9:22:00 CDT, Duration: 30 day, Stop date: 01/15/21 9:21:00 CDT, BSA: 2.06 m2, 0 Sodium 2021-0 No 1,000 mL, [place] [facility] [place] 6-25 Rate: 21 l 0.9% IV 14:22: ml/hr, [place] 1,000 mL 00 Infuse over: 47.6 hr, Route: IV, Dosing Weight 87.727 kg, Total Volume: 1,000, Start date: 12/16/20 9:22:00 CDT, Duration: 30 day, Stop date: 01/15/21 9:21:00 CDT, BSA: 2.06 m2, 0 Sodium 2021-0 No 1,000 mL, [place] [facility] [place] 6-25 Rate: 21 l 0.9% IV 14:22: ml/hr, [place] 1,000 mL 00 Infuse over: 47.6 hr, Route: IV, Dosing Weight 87.727 kg, Total Volume: 1,000, Start date: 12/16/20 9:22:00 CDT, Duration: 30 day, Stop date: 01/15/21 9:21:00 CDT, BSA: 2.06 m2, 0 Sodium 2021-0 No 1,000 mL, [place] [facility] [place] 6-25 Rate: 21 l 0.9% IV 14:22: ml/hr, [place] 1,000 mL 00 Infuse over: 47.6 hr, Route: IV, Dosing Weight 87.727 kg, Total Volume: 1,000, Start date: 12/16/20 9:22:00 CDT, Duration: 30 day, Stop date: 01/15/21 9:21:00 CDT, BSA: 2.06 m2, 0 Sodium 2021-0 No 1,000 mL, [facility] [facility] [place] 6-25 Rate: 21 l 0.9% IV 14:22: ml/hr, [place] 1,000 mL 00 Infuse over: 47.6 hr, Route: IV, Dosing Weight 87.727 kg, Total Volume: 1,000, Start date: 12/16/20 9:22:00 CDT, Duration: 30 day, Stop date: 01/15/21 9:21:00 CDT, BSA: 2.06 m2, 0 Sodium 2021-0 No 1,000 mL, [place] [facility] [place] 6-25 Rate: 21 l 0.9% IV 14:22: ml/hr, [place] 1,000 mL 00 Infuse over: 47.6 hr, Route: IV, Dosing Weight 87.727 kg, Total Volume: 1,000, Start date: 12/16/20 9:22:00 CDT, Duration: 30 day, Stop date: 01/15/21 9:21:00 CDT, BSA: 2.06 m2, 0 Sodium 2021-0 No 1,000 mL, [place] 6-25 Rate: 21 l 0.9% IV 14:22: ml/hr, [place] 1,000 mL 00 Infuse over: 47.6 hr, Route: IV, Dosing Weight 87.727 kg, Total Volume: 1,000, Start date: 12/16/20 9:22:00 CDT, Duration: 30 day, Stop date: 01/15/21 9:21:00 CDT, BSA: 2.06 m2, 0 Sodium 2021-0 No 1,000 mL, [place] 6-25 Rate: 21 l 0.9% IV 14:22: ml/hr, [place] 1,000 mL 00 Infuse over: 47.6 hr, Route: IV, Dosing Weight 87.727 kg, Total Volume: 1,000, Start date: 12/16/20 9:22:00 CDT, Duration: 30 day, Stop date: 01/15/21 9:21:00 CDT, BSA: 2.06 m2, 0 Sodium 2021-0 No 1,000 mL, [place] [facility] [place] 6-25 Rate: 21 l 0.9% IV 14:22: ml/hr, [place] 1,000 mL 00 Infuse over: 47.6 hr, Route: IV, Dosing Weight 87.727 kg, Total Volume: 1,000, Start date: 12/16/20 9:22:00 CDT, Duration: 30 day, Stop date: 01/15/21 9:21:00 CDT, BSA: 2.06 m2, 0 Sodium 2021-0 No 1,000 mL, [place] [facility] [place] 6-25 Rate: 21 l 0.9% IV 14:22: ml/hr, [place] 1,000 mL 00 Infuse over: 47.6 hr, Route: IV, Dosing Weight 87.727 kg, Total Volume: 1,000, Start date: 12/16/20 9:22:00 CDT, Duration: 30 day, Stop date: 01/15/21 9:21:00 CDT, BSA: 2.06 m2, 0 Sodium 2021-0 No 1,000 mL, [place] [facility] [place] 6-25 Rate: 21 l 0.9% IV 14:22: ml/hr, [place] 1,000 mL 00 Infuse over: 47.6 hr, Route: IV, Dosing Weight 87.727 kg, Total Volume: 1,000, Start date: 12/16/20 9:22:00 CDT, Duration: 30 day, Stop date: 01/15/21 9:21:00 CDT, BSA: 2.06 m2, 0 Sodium 2021-0 No 1,000 mL, [place] 6-25 Rate: 21 l 0.9% IV 14:22: ml/hr, [place] 1,000 mL 00 Infuse over: 47.6 hr, Route: IV, Dosing Weight 87.727 kg, Total Volume: 1,000, Start date: 12/16/20 9:22:00 CDT, Duration: 30 day, Stop date: 01/15/21 9:21:00 CDT, BSA: 2.06 m2, 0 Sodium 2021-0 No 1,000 mL, [place] 6-25 Rate: 21 l 0.9% IV 14:22: ml/hr, [place] 1,000 mL 00 Infuse over: 47.6 hr, Route: IV, Dosing Weight 87.727 kg, Total Volume: 1,000, Start date: 12/16/20 9:22:00 CDT, Duration: 30 day, Stop date: 01/15/21 9:21:00 CDT, BSA: 2.06 m2, 0 Sodium 2021-0 No 1,000 mL, [place] 6-25 Rate: 21 l 0.9% IV 14:22: ml/hr, [place] 1,000 mL 00 Infuse over: 47.6 hr, Route: IV, Dosing Weight 87.727 kg, Total Volume: 1,000, Start date: 12/16/20 9:22:00 CDT, Duration: 30 day, Stop date: 01/15/21 9:21:00 CDT, BSA: 2.06 m2, 0 Sodium 2021-0 No 1,000 mL, [place] [facility] [place] 6-25 Rate: 21 l 0.9% IV 14:22: ml/hr, [place] 1,000 mL 00 Infuse over: 47.6 hr, Route: IV, Dosing Weight 87.727 kg, Total Volume: 1,000, Start date: 12/16/20 9:22:00 CDT, Duration: 30 day, Stop date: 01/15/21 9:21:00 CDT, BSA: 2.06 m2, 0 Sodium 2021-0 No 1,000 mL, [facility] [place] 6-25 Rate: 21 l 0.9% IV 14:22: ml/hr, [place] 1,000 mL 00 Infuse over: 47.6 hr, Route: IV, Dosing Weight 87.727 kg, Total Volume: 1,000, Start date: 12/16/20 9:22:00 CDT, Duration: 30 day, Stop date: 01/15/21 9:21:00 CDT, BSA: 2.06 m2, 0 Sodium 2021-0 No 1,000 mL, [place] [facility] [place] 6-25 Rate: 21 l 0.9% IV 14:22: ml/hr, [place] 1,000 mL 00 Infuse over: 47.6 hr, Route: IV, Dosing Weight 87.727 kg, Total Volume: 1,000, Start date: 12/16/20 9:22:00 CDT, Duration: 30 day, Stop date: 01/15/21 9:21:00 CDT, BSA: 2.06 m2, 0 Sodium 2021-0 No 1,000 mL, [place] [facility] [place] 6-25 Rate: 21 l 0.9% IV 14:22: ml/hr, [place] 1,000 mL 00 Infuse over: 47.6 hr, Route: IV, Dosing Weight 87.727 kg, Total Volume: 1,000, Start date: 12/16/20 9:22:00 CDT, Duration: 30 day, Stop date: 01/15/21 9:21:00 CDT, BSA: 2.06 m2, 0 Sodium 2021-0 No 1,000 mL, [facility] [place] 6-25 Rate: 21 l 0.9% IV 14:22: ml/hr, [place] 1,000 mL 00 Infuse over: 47.6 hr, Route: IV, Dosing Weight 87.727 kg, Total Volume: 1,000, Start date: 12/16/20 9:22:00 CDT, Duration: 30 day, Stop date: 01/15/21 9:21:00 CDT, BSA: 2.06 m2, 0 Sodium 2021-0 No 1,000 mL, [place] [facility] [place] 6-25 Rate: 21 l 0.9% IV 14:22: ml/hr, [place] 1,000 mL 00 Infuse over: 47.6 hr, Route: IV, Dosing Weight 87.727 kg, Total Volume: 1,000, Start date: 12/16/20 9:22:00 CDT, Duration: 30 day, Stop date: 01/15/21 9:21:00 CDT, BSA: 2.06 m2, 0 Sodium 2021-0 No 1,000 mL, [place] [facility] [place] 6-25 Rate: 21 l 0.9% IV 14:22: ml/hr, [place] 1,000 mL 00 Infuse over: 47.6 hr, Route: IV, Dosing Weight 87.727 kg, Total Volume: 1,000, Start date: 12/16/20 9:22:00 CDT, Duration: 30 day, Stop date: 01/15/21 9:21:00 CDT, BSA: 2.06 m2, 0 Sodium 2021-0 No 1,000 mL, [facility] [place] 6-25 Rate: 21 l 0.9% IV 14:22: ml/hr, [place] 1,000 mL 00 Infuse over: 47.6 hr, Route: IV, Dosing Weight 87.727 kg, Total Volume: 1,000, Start date: 12/16/20 9:22:00 CDT, Duration: 30 day, Stop date: 01/15/21 9:21:00 CDT, BSA: 2.06 m2, 0 Sodium 2021-0 No 1,000 mL, [place] 6-25 Rate: 21 l 0.9% IV 14:22: ml/hr, [place] 1,000 mL 00 Infuse over: 47.6 hr, Route: IV, Dosing Weight 87.727 kg, Total Volume: 1,000, Start date: 12/16/20 9:22:00 CDT, Duration: 30 day, Stop date: 01/15/21 9:21:00 CDT, BSA: 2.06 m2, 0 Sodium 2021-0 No 1,000 mL, [place] 6-25 Rate: 21 l 0.9% IV 14:22: ml/hr, [place] 1,000 mL 00 Infuse over: 47.6 hr, Route: IV, Dosing Weight 87.727 kg, Total Volume: 1,000, Start date: 12/16/20 9:22:00 CDT, Duration: 30 day, Stop date: 01/15/21 9:21:00 CDT, BSA: 2.06 m2, 0 Sodium 2021-0 No 1,000 mL, [facility] [place] 6-25 Rate: 21 l 0.9% IV 14:22: ml/hr, [place] 1,000 mL 00 Infuse over: 47.6 hr, Route: IV, Dosing Weight 87.727 kg, Total Volume: 1,000, Start date: 12/16/20 9:22:00 CDT, Duration: 30 day, Stop date: 01/15/21 9:21:00 CDT, BSA: 2.06 m2, 0 Sodium 2021-0 No 1,000 mL, [facility] [place] 6-25 Rate: 21 l 0.9% IV 14:22: ml/hr, [place] 1,000 mL 00 Infuse over: 47.6 hr, Route: IV, Dosing Weight 87.727 kg, Total Volume: 1,000, Start date: 12/16/20 9:22:00 CDT, Duration: 30 day, Stop date: 01/15/21 9:21:00 CDT, BSA: 2.06 m2, 0 Sodium 2021-0 No 1,000 mL, [facility] [place] 6-25 Rate: 21 l 0.9% IV 14:22: ml/hr, [place] 1,000 mL 00 Infuse over: 47.6 hr, Route: IV, Dosing Weight 87.727 kg, Total Volume: 1,000, Start date: 12/16/20 9:22:00 CDT, Duration: 30 day, Stop date: 01/15/21 9:21:00 CDT, BSA: 2.06 m2, 0 Sodium 2021-0 No 1,000 mL, [place] [facility] [place] 6-25 Rate: 21 l 0.9% IV 14:22: ml/hr, [place] 1,000 mL 00 Infuse over: 47.6 hr, Route: IV, Dosing Weight 87.727 kg, Total Volume: 1,000, Start date: 12/16/20 9:22:00 CDT, Duration: 30 day, Stop date: 01/15/21 9:21:00 CDT, BSA: 2.06 m2, 0 Sodium 2021-0 No 1,000 mL, [facility] [place] 6-25 Rate: 21 l 0.9% IV 14:22: ml/hr, [place] 1,000 mL 00 Infuse over: 47.6 hr, Route: IV, Dosing Weight 87.727 kg, Total Volume: 1,000, Start date: 12/16/20 9:22:00 CDT, Duration: 30 day, Stop date: 01/15/21 9:21:00 CDT, BSA: 2.06 m2, 0 Sodium 2021-0 No 1,000 mL, [facility] [place] 6-25 Rate: 21 l 0.9% IV 14:22: ml/hr, [place] 1,000 mL 00 Infuse over: 47.6 hr, Route: IV, Dosing Weight 87.727 kg, Total Volume: 1,000, Start date: 12/16/20 9:22:00 CDT, Duration: 30 day, Stop date: 01/15/21 9:21:00 CDT, BSA: 2.06 m2, 0 Sodium 2020- No 1,000 mL, [facility] [place] 6-25 Rate: 21 l 0.9% IV 14:22: ml/hr, [place] 1,000 mL 00 Infuse over: 47.6 hr, Route: IV, Dosing Weight 87.727 kg, Total Volume: 1,000, Start date: 12/16/20 9:22:00 CDT, Duration: 30 day, Stop date: 01/15/21 9:21:00 CDT, BSA: 2.06 m2, 0 brinzolamid Yes 1 drp, [place] 10 MG/ML 6-17 BOTH EYES, l Ophthalmic 21:11: TID [place] Suspension 00 [Azopt] brinzolamid Yes 1 drp, [place] 10 MG/ML 6-17 BOTH EYES, l Ophthalmic 21:11: TID [place] Suspension 00 [Azopt] brinzolamid 0 Yes 1 drp, [place] 10 MG/ML 6-17 BOTH EYES, l Ophthalmic 21:11: TID [place] Suspension 00 [Azopt] brinzolamid 0 Yes 1 drp, [place] 10 MG/ML 6-17 BOTH EYES, l Ophthalmic 21:11: TID [place] Suspension 00 [Azopt] brinzolamid 0 Yes 1 drp, [place] 10 MG/ML 6-17 BOTH EYES, l Ophthalmic 21:11: TID [place] Suspension 00 [Azopt] brinzolamid 0 Yes 1 drp, [place] 10 MG/ML 6-17 BOTH EYES, l Ophthalmic 21:11: TID [place] Suspension 00 [Azopt] brinzolamid 0 Yes 1 drp, [place] 10 MG/ML 6-17 BOTH EYES, l Ophthalmic 21:11: TID [place] [facility] 00 [Azopt] brinzolamid 0 Yes 1 drp, [place] 10 MG/ML 6-17 BOTH EYES, l Ophthalmic 21:11: TID [place] [facility] [Azopt] brinzolamid 0 Yes 1 drp, [place] 10 MG/ML 6-17 BOTH EYES, l Ophthalmic 21:11: TID [place] [facility] 00 [Azopt] brinzolamid 0 Yes 1 drp, [place] 10 MG/ML 6-17 BOTH EYES, l Ophthalmic 21:11: TID [place] [facility] [Azopt] brinzolamid 0 Yes 1 drp, [place] 10 MG/ML 6-17 BOTH EYES, l Ophthalmic 21:11: TID [place] [facility] 00 [Azopt] brinzolamid 0 Yes 1 drp, [place] 10 MG/ML 6-17 BOTH EYES, l Ophthalmic 21:11: TID [place] [facility] [Azopt] brinzolamid 0 Yes 1 drp, [place] 10 MG/ML 6-17 BOTH EYES, l Ophthalmic 21:11: T[facility] [place] [facility] [Azopt] brinzolamid 0 Yes 1 drp, [place] 10 MG/ML 6-17 BOTH EYES, l Ophthalmic 21:11: TID [place] [facility] [Azopt] brinzolamid 0 Yes 1 drp, [place] 10 MG/ML 6-17 BOTH EYES, l Ophthalmic 21:11: TID [place] [facility] 00 [Azopt] brinzolamid 0 Yes 1 drp, [place] 10 MG/ML 6-17 BOTH EYES, l Ophthalmic 21:11: TID [place] [facility] 00 [Azopt] brinzolamid 0 Yes 1 drp, [place] 10 MG/ML 6-17 BOTH EYES, l Ophthalmic 21:11: TID [place] [facility] 00 [Azopt] brinzolamid 0 Yes 1 drp, [place] 10 MG/ML 6-17 BOTH EYES, l Ophthalmic 21:11: TID [place] [facility] 00 [Azopt] brinzolamid Yes 1 drp, [place] 10 MG/ML 6-17 BOTH EYES, l Ophthalmic 21:11: TID [place] [facility] 00 [Azopt] brinzolamid Yes 1 drp, [place] 10 MG/ML 6-17 BOTH EYES, l Ophthalmic 21:11: TID [place] [facility] 00 [Azopt] brinzolamid Yes 1 drp, [place] 10 MG/ML 6-17 BOTH EYES, l Ophthalmic 21:11: TID [place] [facility] 00 [Azopt] brinzolamid Yes 1 drp, [place] 10 MG/ML 6-17 BOTH EYES, l Ophthalmic 21:11: TID [place] [facility] [Azopt] brinzolamid Yes 1 drp, [place] 10 MG/ML 6-17 BOTH EYES, l Ophthalmic 21:11: TID [place] [facility] [Azopt] brinzolamid Yes 1 drp, [place] 10 MG/ML 6-17 BOTH EYES, l Ophthalmic 21:11: TID [place] [facility] [Azopt] brinzolamid Yes 1 drp, [place] 10 MG/ML 6-17 BOTH EYES, l Ophthalmic 21:11: TID [place] [facility] [Azopt] brinzolamid Yes 1 drp, [place] 10 MG/ML 6-17 BOTH EYES, l Ophthalmic 21:11: TID [place] [facility] 00 [Azopt] brinzolamid 0 Yes 1 drp, [place] 10 MG/ML 6-17 BOTH EYES, l Ophthalmic 21:11: TID [place] [facility] [Azopt] brinzolamid 0 Yes 1 drp, [place] 10 MG/ML 6-17 BOTH EYES, l Ophthalmic 21:11: TID [place] [facility] 00 [Azopt] brinzolamid Yes 1 drp, [place] 10 MG/ML 6-17 BOTH EYES, l Ophthalmic 21:11: TID [place] [facility] 00 [Azopt] brinzolamid Yes 1 drp, [place] 10 MG/ML 6-17 BOTH EYES, l Ophthalmic 21:11: TID [place] [facility] 00 [Azopt] brinzolamid 0 Yes 1 drp, [place] 10 MG/ML 6-17 BOTH EYES, l Ophthalmic 21:11: TID [place] [facility] 00 [Azopt] brinzolamid 0 Yes 1 drp, [place] 10 MG/ML 6-17 BOTH EYES, l Ophthalmic 21:11: TID [place] [facility] 00 [Azopt] brinzolamid 0 Yes 1 drp, [place] 10 MG/ML 6-17 BOTH EYES, l Ophthalmic 21:11: TID [place] [facility] [Azopt] brinzolamid 0 Yes 1 drp, [place] 10 MG/ML 6-17 BOTH EYES, l Ophthalmic 21:11: TID [place] [facility] [Azopt] brinzolamid Yes 1 drp, [place] 10 MG/ML 6-17 BOTH EYES, l Ophthalmic 21:11: TID [place] [facility] [Azopt] brinzolamid 0 Yes 1 drp, [place] 10 MG/ML 6-17 BOTH EYES, l Ophthalmic 21:11: TID [place] [facility] [Azopt] brinzolamid 0 Yes 1 drp, [place] 10 MG/ML 6-17 BOTH EYES, l Ophthalmic 21:11: TID [place] [facility] 00 [Azopt] brinzolamid 0 Yes 1 drp, [place] 10 MG/ML 6-17 BOTH EYES, l Ophthalmic 21:11: TID [place] [facility] 00 [Azopt] brinzolamid 0 Yes 1 drp, [place] 10 MG/ML 6-17 BOTH EYES, l Ophthalmic 21:11: TID [place] [facility] 00 [Azopt] brinzolamid 0 Yes 1 drp, Sherman timbo e 10 MG/ML 6-17 BOTH EYES, l Ophthalmic 21:11: TID [place] Suspension 00 [Azopt] brinzolamid 0 Yes 1 drp, Sherman timbo e 10 MG/ML 6-17 BOTH EYES, l Ophthalmic 21:11: TID [place] Suspension 00 [Azopt] oxybutynin 2020-0 Yes 5 mg = 1 Mem oria 5 mg oral 6-17 tab, PO, l tablet, 21:10: QPM [place] extended 00 release Aspirin 81 2020-0 Yes 81 mg = 1 Me moria MG Enteric 6-17 tab, PO, l Coated 21:10: Daily [place] Tablet 00 oxybutynin 2020-0 Yes 5 mg = 1 Mem oria 5 mg oral 6-17 tab, PO, l tablet, 21:10: QPM [place] extended 00 release Aspirin 81 2020-0 Yes 81 mg = 1 Me moria MG Enteric 6-17 tab, PO, l Coated 21:10: Daily [place] Tablet 00 oxybutynin 2020-0 Yes 5 mg = 1 Mem oria 5 mg oral 6-17 tab, PO, l tablet, 21:10: QPM [place] extended 00 release Aspirin 81 2020-0 Yes 81 mg = 1 Me moria MG Enteric 6-17 tab, PO, l Coated 21:10: Daily [place] Tablet 00 oxybutynin 2020-0 Yes 5 mg = 1 Mem oria 5 mg oral 6-17 tab, PO, l tablet, 21:10: QPM [place] extended 00 release Aspirin 81 2020-0 Yes 81 mg = 1 Me moria MG Enteric 6-17 tab, PO, l Coated 21:10: Daily [place] Tablet 00 oxybutynin 1-0 Yes 5 mg = 1 Mem oria 5 mg oral 6-17 tab, PO, l tablet, 21:10: QPM [place] extended 00 release Aspirin 81 2020-0 Yes 81 mg = 1 Me moria MG Enteric 6-17 tab, PO, l Coated 21:10: Daily [place] Tablet 00 oxybutynin 2020-0 Yes 5 mg = 1 Mem oria 5 mg oral 6-17 tab, PO, l tablet, 21:10: QPM [place] extended 00 release Aspirin 81 2020-0 Yes 81 mg = 1 Me moria MG Enteric 6-17 tab, PO, l Coated 21:10: Daily [place] Tablet 00 oxybutynin 1-0 Yes 5 mg = 1 Mem oria 5 mg oral 6-17 tab, PO, l tablet, 21:10: QPM [place] extended 00 release Aspirin 81 2020-0 Yes 81 mg = 1 Me moria MG Enteric 6-17 tab, PO, l Coated 21:10: Daily [place] Tablet 00 oxybutynin 2020-0 Yes 5 mg = 1 Mem oria 5 mg oral 6-17 tab, PO, l tablet, 21:10: QPM [place] extended 00 release Aspirin 81 2020-0 Yes 81 mg = 1 Me moria MG Enteric 6-17 tab, PO, l Coated 21:10: Daily [place] Tablet 00 oxybutynin 2020-0 Yes 5 mg = 1 Mem oria 5 mg oral 6-17 tab, PO, l tablet, 21:10: QPM [place] extended 00 release Aspirin 81 2020-0 Yes 81 mg = 1 Me moria MG Enteric 6-17 tab, PO, l Coated 21:10: Daily [place] Tablet 00 oxybutynin 2020-0 Yes 5 mg = 1 Mem oria 5 mg oral 6-17 tab, PO, l tablet, 21:10: QPM [place] extended 00 release Aspirin 81 2020-0 Yes 81 mg = 1 Me moria MG Enteric 6-17 tab, PO, l Coated 21:10: Daily [place] Tablet 00 oxybutynin 2020-0 Yes 5 mg = 1 Mem oria 5 mg oral 6-17 tab, PO, l tablet, 21:10: QPM [place] extended 00 release Aspirin 81 2020-0 Yes 81 mg = 1 Me moria MG Enteric 6-17 tab, PO, l Coated 21:10: Daily [place] Tablet 00 oxybutynin 2020-0 Yes 5 mg = 1 Mem oria 5 mg oral 6-17 tab, PO, l tablet, 21:10: QPM [place] extended 00 release Aspirin 81 2020-0 Yes 81 mg = 1 Me moria MG Enteric 6-17 tab, PO, l Coated 21:10: Daily [place] Tablet 00 oxybutynin 2020-0 Yes 5 mg = 1 Mem oria 5 mg oral 6-17 tab, PO, l tablet, 21:10: QPM [place] extended 00 release Aspirin 81 2020-0 Yes 81 mg = 1 Me moria MG Enteric 6-17 tab, PO, l Coated 21:10: Daily [place] Tablet 00 oxybutynin 2020-0 Yes 5 mg = 1 Mem oria 5 mg oral 6-17 tab, PO, l tablet, 21:10: QPM [place] extended 00 release Aspirin 81 2020-0 Yes 81 mg = 1 Me moria MG Enteric 6-17 tab, PO, l Coated 21:10: Daily [place] Tablet 00 oxybutynin 2020-0 Yes 5 mg = 1 Mem oria 5 mg oral 6-17 tab, PO, l tablet, 21:10: QPM [place] extended 00 release Aspirin 81 2020-0 Yes 81 mg = 1 Me moria MG Enteric 6-17 tab, PO, l Coated 21:10: Daily [place] Tablet 00 oxybutynin 2020-0 Yes 5 mg = 1 Mem oria 5 mg oral 6-17 tab, PO, l tablet, 21:10: QPM [place] extended 00 release Aspirin 81 2020-0 Yes 81 mg = 1 Me moria MG Enteric 6-17 tab, PO, l Coated 21:10: Daily [place] Tablet 00 oxybutynin 2020-0 Yes 5 mg = 1 Mem oria 5 mg oral 6-17 tab, PO, l tablet, 21:10: QPM [place] extended 00 release Aspirin 81 2020-0 Yes 81 mg = 1 Me moria MG Enteric 6-17 tab, PO, l Coated 21:10: Daily [place] Tablet oxybutynin 2020-0 Yes 5 mg = 1 Mem oria 5 mg oral 6-17 tab, PO, l tablet, 21:10: QPM [place] extended 00 release Aspirin 81 2020-0 Yes 81 mg = 1 Me moria MG Enteric 6-17 tab, PO, l Coated 21:10: Daily [place] Tablet 00 oxybutynin 2020-0 Yes 5 mg = 1 Mem oria 5 mg oral 6-17 tab, PO, l tablet, 21:10: QPM [place] extended 00 release Aspirin 81 2020-0 Yes 81 mg = 1 Me moria MG Enteric 6-17 tab, PO, l Coated 21:10: Daily [place] Tablet 00 oxybutynin 2020-0 Yes 5 mg = 1 Mem oria 5 mg oral 6-17 tab, PO, l tablet, 21:10: QPM [place] extended 00 release Aspirin 81 2020-0 Yes 81 mg = 1 Me moria MG Enteric 6-17 tab, PO, l Coated 21:10: Daily [place] Tablet 00 oxybutynin 2020-0 Yes 5 mg = 1 Mem oria 5 mg oral 6-17 tab, PO, l tablet, 21:10: QPM [place] extended 00 release Aspirin 81 2020-0 Yes 81 mg = 1 Me moria MG Enteric 6-17 tab, PO, l Coated 21:10: Daily [place] Tablet 00 oxybutynin 2020-0 Yes 5 mg = 1 Mem oria 5 mg oral 6-17 tab, PO, l tablet, 21:10: QPM [place] extended 00 release Aspirin 81 2020-0 Yes 81 mg = 1 Me moria MG Enteric 6-17 tab, PO, l Coated 21:10: Daily [place] Tablet 00 oxybutynin 2020-0 Yes 5 mg = 1 Mem oria 5 mg oral 6-17 tab, PO, l tablet, 21:10: QPM [place] extended 00 release Aspirin 81 2020-0 Yes 81 mg = 1 Me moria MG Enteric 6-17 tab, PO, l Coated 21:10: Daily [place] Tablet 00 oxybutynin 2020-0 Yes 5 mg = 1 Mem oria 5 mg oral 6-17 tab, PO, l tablet, 21:10: QPM [place] extended 00 release Aspirin 81 2020-0 Yes 81 mg = 1 Me moria MG Enteric 6-17 tab, PO, l Coated 21:10: Daily [place] Tablet 00 oxybutynin 2020-0 Yes 5 mg = 1 Mem oria 5 mg oral 6-17 tab, PO, l tablet, 21:10: QPM [place] extended 00 release Aspirin 81 2020-0 Yes 81 mg = 1 Me moria MG Enteric 6-17 tab, PO, l Coated 21:10: Daily [place] Tablet 00 oxybutynin 2020-0 Yes 5 mg = 1 Mem oria 5 mg oral 6-17 tab, PO, l tablet, 21:10: QPM [place] extended 00 release Aspirin 81 2020-0 Yes 81 mg = 1 Me moria MG Enteric 6-17 tab, PO, l Coated 21:10: Daily [place] Tablet 00 oxybutynin 2020-0 Yes 5 mg = 1 Mem oria 5 mg oral 6-17 tab, PO, l tablet, 21:10: QPM [place] extended 00 release Aspirin 81 2020-0 Yes 81 mg = 1 Me moria MG Enteric 6-17 tab, PO, l Coated 21:10: Daily [place] Tablet 00 oxybutynin 2020-0 Yes 5 mg = 1 Mem oria 5 mg oral 6-17 tab, PO, l tablet, 21:10: QPM [place] extended 00 release oxybutynin 2020-0 Yes 5 mg = 1 Mem oria 5 mg oral 6-17 tab, PO, l tablet, 21:10: QPM [place] extended 00 release Aspirin 81 2020-0 Yes 81 mg = 1 Me moria MG Enteric 6-17 tab, PO, l Coated 21:10: Daily [place] Tablet 00 Aspirin 81 2020-0 Yes 81 mg = 1 Me moria MG Enteric 6-17 tab, PO, l Coated 21:10: Daily [place] Tablet 00 oxybutynin 2020-0 Yes 5 mg = 1 Mem oria 5 mg oral 6-17 tab, PO, l tablet, 21:10: QPM [place] extended 00 release Aspirin 81 2020-0 Yes 81 mg = 1 Me moria MG Enteric 6-17 tab, PO, l Coated 21:10: Daily [place] Tablet 00 oxybutynin 2020-0 Yes 5 mg = 1 Mem oria 5 mg oral 6-17 tab, PO, l tablet, 21:10: QPM [place] extended 00 release Aspirin 81 2020-0 Yes 81 mg = 1 Me moria MG Enteric 6-17 tab, PO, l Coated 21:10: Daily [place] Tablet 00 oxybutynin 2020-0 Yes 5 mg = 1 Mem oria 5 mg oral 6-17 tab, PO, l tablet, 21:10: QPM [place] extended 00 release Aspirin 81 2020-0 Yes 81 mg = 1 Me moria MG Enteric 6-17 tab, PO, l Coated 21:10: Daily [place] Tablet 00 oxybutynin 2020-0 Yes 5 mg = 1 Mem oria 5 mg oral 6-17 tab, PO, l tablet, 21:10: QPM [place] extended 00 release Aspirin 81 2020-0 Yes 81 mg = 1 Me moria MG Enteric 6-17 tab, PO, l Coated 21:10: Daily [place] Tablet 00 oxybutynin 2020-0 Yes 5 mg = 1 Mem oria 5 mg oral 6-17 tab, PO, l tablet, 21:10: QPM [place] extended 00 release Aspirin 81 2020-0 Yes 81 mg = 1 Me moria MG Enteric 6-17 tab, PO, l Coated 21:10: Daily [place] Tablet 00 oxybutynin 2020-0 Yes 5 mg = 1 Mem oria 5 mg oral 6-17 tab, PO, l tablet, 21:10: QPM [place] extended 00 release Aspirin 81 2020-0 Yes 81 mg = 1 Me moria MG Enteric 6-17 tab, PO, l Coated 21:10: Daily [place] Tablet 00 oxybutynin 2020-0 Yes 5 mg = 1 Mem oria 5 mg oral 6-17 tab, PO, l tablet, 21:10: QPM [place] extended 00 release Aspirin 81 2020-0 Yes 81 mg = 1 Me moria MG Enteric 6-17 tab, PO, l Coated 21:10: Daily [place] Tablet 00 oxybutynin 2020-0 Yes 5 mg = 1 Mem oria 5 mg oral 6-17 tab, PO, l tablet, 21:10: QPM [place] extended 00 release Aspirin 81 2020-0 Yes 81 mg = 1 Me moria MG Enteric 6-17 tab, PO, l Coated 21:10: Daily [place] Tablet 00 oxybutynin 2020-0 Yes 5 mg = 1 Mem oria 5 mg oral 6-17 tab, PO, l tablet, 21:10: QPM [place] extended 00 release Aspirin 81 2020-0 Yes 81 mg = 1 Me moria MG Enteric 6-17 tab, PO, l Coated 21:10: Daily [place] Tablet 00 oxybutynin 2020-0 Yes 5 mg = 1 Mem oria 5 mg oral 6-17 tab, PO, l tablet, 21:10: QPM [place] extended 00 release Aspirin 81 2020-0 Yes 81 mg = 1 Me moria MG Enteric 6-17 tab, PO, l Coated 21:10: Daily [place] Tablet 00 oxybutynin 2020-0 Yes 5 mg = 1 Mem oria 5 mg oral 6-17 tab, PO, l tablet, 21:10: QPM [place] extended 00 release Aspirin 81 2020-0 Yes 81 mg = 1 Me moria MG Enteric 6-17 tab, PO, l Coated 21:10: Daily [place] Tablet 00 oxybutynin 2020-0 Yes 5 mg = 1 Mem oria 5 mg oral 6-17 tab, PO, l tablet, 21:10: QPM [place] extended 00 release Aspirin 81 1-0 Yes 81 mg = 1 Me moria MG Enteric 6-17 tab, PO, l Coated 21:10: Daily [place] Tablet 00 omeprazole 1-0 Yes 40mg QD Take 40 mg U T (PriLOSEC) 5-28 by mouth [facility] [address] 00:00: (one) time capsule 00 each day. omeprazole 2021-0 Yes 40mg QD Take 40 mg U T (PriLOSEC) 5-28 by mouth [facility] [address] 00:00: (one) time capsule 00 each day. omeprazole 2021-0 Yes 40mg QD Take 40 mg U T (PriLOSEC) 5-28 by mouth [facility] [address] 00:00: (one) time capsule 00 each day. omeprazole 2021-0 Yes 40mg QD Take 40 mg U T (PriLOSEC) 5-28 by mouth [facility] [address] 00:00: (one) time capsule 00 each day. omeprazole 1-0 Yes 40mg QD Take 40 mg U T (PriLOSEC) 5-28 by mouth [facility] [address] 00:00: (one) time capsule 00 each day. omeprazole 2021-0 Yes 40mg QD Take 40 mg U T (PriLOSEC) 5-28 by mouth [facility] [address] 00:00: (one) time capsule 00 each day. omeprazole 2021-0 Yes 40mg QD Take 40 mg U T (PriLOSEC) 5-28 by mouth [facility] [address] 00:00: (one) time capsule 00 each day. omeprazole 2021-0 Yes 40mg QD Take 40 mg U T (PriLOSEC) 5-28 by mouth [facility] [address] 00:00: (one) time capsule 00 each day. omeprazole 2021-0 Yes 40mg QD Take 40 mg U T (PriLOSEC) 5-28 by mouth [facility] [address] 00:00: (one) time capsule 00 each day. omeprazole 2021-0 Yes 40mg QD Take 40 mg U T (PriLOSEC) 5-28 by mouth [facility] [address] 00:00: (one) time capsule 00 each day. oxybutynin 2021-0 Yes 5mg QD Take 5 mg [facility] XL 3-04 by mouth 1 [facility] (Ditropan-X 00:00: (one) time L) 5 MG 24 00 each day. hr tablet oxybutynin 2021-0 Yes 5mg QD Take 5 mg [facility] XL 3-04 by mouth 1 [facility] (Ditropan-X 00:00: (one) time L) 5 MG 24 00 each day. hr tablet oxybutynin 2021-0 Yes 5mg QD Take 5 mg [facility] XL 3-04 by mouth 1 [facility] (Ditropan-X 00:00: (one) time L) 5 MG 24 00 each day. hr tablet oxybutynin 2021-0 Yes 5mg QD Take 5 mg [facility] XL 3-04 by mouth 1 [facility] (Ditropan-X 00:00: (one) time L) 5 MG 24 00 each day. hr tablet oxybutynin 2021-0 Yes 5mg QD Take 5 mg [facility] XL 3-04 by mouth 1 [facility] (Ditropan-X 00:00: (one) time L) 5 MG 24 00 each day. hr tablet oxybutynin 2021-0 Yes 5mg QD Take 5 mg [facility] XL 3-04 by mouth 1 [facility] (Ditropan-X 00:00: (one) time L) 5 MG 24 00 each day. hr tablet oxybutynin 2021-0 Yes 5mg QD Take 5 mg [facility] XL 3-04 by mouth 1 [facility] (Ditropan-X 00:00: (one) time L) 5 MG 24 00 each day. hr tablet oxybutynin 2021-0 Yes 5mg QD Take 5 mg [facility] XL 3-04 by mouth 1 [facility] (Ditropan-X 00:00: (one) time L) 5 MG 24 00 each day. hr tablet oxybutynin 2021-0 Yes 5mg QD Take 5 mg [facility] XL 3-04 by mouth 1 [facility] (Ditropan-X 00:00: (one) time L) 5 MG 24 00 each day. hr tablet oxybutynin 2021-0 Yes 5mg QD Take 5 mg [facility] XL 3-04 by mouth 1 Health (Ditropan-X 00:00: (one) time L) 5 MG 24 00 each day. hr tablet brinzolamid 2020-[address] in [facility] (AZOPT 4-20 each eye. ity of OPHTHALMIC) 19:14: [address] brinzolamid 2020-[address] in [facility] (AZOPT 4-20 each eye. ity of OPHTHALMIC) 19:14: [address] brinzolamid 2020-[address] in [facility] (AZOPT 4-20 each eye. ity of OPHTHALMIC) 19:14: [address] brinzolamid 2020-[address] in [facility] (AZOPT 4-20 each eye. ity of OPHTHALMIC) 14:14: [address] brinzolamid 2020-[address] in [facility] e (AZOPT 4-20 each eye. ity of OPHTHALMIC) 14:14: [address] Ibuprofen Ibuprofen Yes Joel not Co mmon Zepeda defined [facility] Azopt Azopt Yes Joel not Common Zepeda defined [facility] Azopt 1 % Azopt 1 % No Azopt 1 % Ibuprofen Ibuprofen No Ibuprofen 600 MG 600 MG 600 MG Immunizations Ordered Filled Immunization Date Status Comments Sour e Immunization Name Name SARS-COV-2 COVID-19 2020-08-20 Completed [facility] of PFIZER VACCINE 00:00:00 [facility] SARS-COV-2 COVID-19 2020-08-20 Completed Unive rsity of PFIZER VACCINE 00:00:00 [facility] SARS-COV-2 COVID-19 2020-08-20 Completed Unive rsity of PFIZER VACCINE 00:00:00 [facility] SARS-COV-2 COVID-19 2020-07-30 Completed Unive rsity of PFIZER VACCINE 00:00:00 [facility] SARS-COV-2 COVID-19 2020-07-30 Completed Unive rsity of PFIZER VACCINE 00:00:00 [facility] SARS-COV-2 COVID-19 2020-07-30 Completed Unive rsity of PFIZER VACCINE 00:00:00 [facility] Kenalog Kenalog 2020-06-27 Completed [facility] - (Triamcinolone) (Triamcinolone) 09:05:00 [facility] Bupivicaine Lockhart Bupivicaine Lockhart 2020-06-27 Completed [facility] - 09:04:00 [facility] Visco-3 Visco-3 2020-01-14 Completed [facility] - 14:50:00 [facility] Visco-3 Visco-3 2020-01-07 Completed [facility] - 11:18:00 [facility] Bupivicaine Lockhart Bupivicaine Lockhart 2019-12-31 Completed [facility] - 14:56:00 [facility] Kenalog Kenalog 2019-12-31 Completed [facility] - (Triamcinolone) (Triamcinolone) 14:55:00 [facility] Visco-3 Visco-3 2019-12-31 Completed [facility] - 13:25:00 [facility] Bupivicaine Lockhart Bupivicaine Lockhart 2019-09-30 Completed [facility] - 10:29:00 [facility] Kenalog Kenalog 2019-09-30 Completed [facility] - (Triamcinolone) (Triamcinolone) 10:28:00 [facility] Bupivicaine Lockhart Bupivicaine Lockhart 2019-07-29 Completed [facility] - 09:14:00 [facility] Kenalog Kenalog 2019-07-29 Completed [facility] - (Triamcinolone) (Triamcinolone) 09:13:00 [facility] Vital Signs Vital Name Observation Time Observation Value Comments Source Systolic blood 2023-01-29 15:14:00 132 mm[Hg] Lalita Chester - pressure External Diastolic blood 2023-01-29 15:14:00 74 mm[Hg] Destiney Chester - pressure External Heart rate 2023-01-29 15:14:00 60 /min Lalita glover - External Body temperature 2023-01-29 15:14:00 36.22 Edna Lucita Chester - External Respiratory rate 2023-01-29 15:14:00 16 /min Lucita Chester - External Body height 2023-01-29 15:14:00 170.2 cm Lalita glover - External Body weight 2023-01-29 15:14:00 92.08 kg Lalita S eybold - External BMI 2023-01-29 15:14:00 31.79 kg/m2 Lalita Rios eybold - External Oxygen saturation in 2023-01-29 15:14:00 98 /min Lalita Chester - Arterial blood by External Pulse oximetry Systolic blood 2023-01-16 13:26:00 146 mm[Hg] Lalita Seybold - pressure External Diastolic blood 2023-01-16 13:26:00 89 mm[Hg] Alekseyse y Seybold - pressure External Heart rate 2023-01-16 13:26:00 89 /min Lalita Rios eybold - External Body temperature 2023-01-16 13:26:00 36.78 Edna Lucita ey Seybold - External Respiratory rate 2023-01-16 13:26:00 19 /min Lucita mcgrath Seybold - External Body height 2023-01-16 13:26:00 170.2 cm Lalita Rios eybold - External Body weight 2023-01-16 13:26:00 87.544 kg Lalita Rios eybold - External BMI 2023-01-16 13:26:00 30.23 kg/m2 Lalita S eybold - External Body height 2022-10-29 15:31:00 170.2 cm Lalita Rios eybold - External Body weight 2022-10-29 15:31:00 83.462 kg Lalita Rios eybold - External BMI 2022-10-29 15:31:00 28.82 kg/m2 Lalita Rios eybold - External Systolic blood 2022-10-24 13:27:00 130 mm[Hg] Lalita Seybold - pressure External Diastolic blood 2022-10-24 13:27:00 78 mm[Hg] Destiney y Seybold - pressure External Heart rate 2022-10-24 13:27:00 88 /min Lalita Rios eybold - External Respiratory rate 2022-10-24 13:27:00 14 /min Lucita mcgrath Seybold - External Body height 2022-10-24 13:27:00 170.2 cm Lalita S eybold - External Body weight 2022-10-24 13:27:00 85.548 kg Lalita S eybold - External BMI 2022-10-24 13:27:00 29.54 kg/m2 Lalita S eybold - External Systolic blood 2022-10-17 18:21:00 133 mm[Hg] Lalita Seybold - pressure External Diastolic blood 2022-10-17 18:21:00 76 mm[Hg] Alekseyse y Seybold - pressure External Heart rate 2022-10-17 18:21:00 97 /min Lalita Rios eybold - External Body temperature 2022-10-17 18:21:00 36.83 Edna Lucita ey Seybold - External Respiratory rate 2022-10-17 18:21:00 14 /min Lucita ey Seybold - External Body height 2022-10-17 18:21:00 170.2 cm Lalita Rios eybold - External Body weight 2022-10-17 18:21:00 86.183 kg Lalita Rios eybold - External BMI 2022-10-17 18:21:00 29.76 kg/m2 Lalita Rios eybold - External Oxygen saturation in 2022-10-17 18:21:00 99 /min Lalita Chester - Arterial blood by External Pulse oximetry Body height 2022-10-01 18:21:00 170.2 cm Lalita Rios eybold - External Body weight 2022-10-01 18:21:00 87.544 kg Lalita Rios eybold - External BMI 2022-10-01 18:21:00 30.23 kg/m2 Lalita Rios eybold - External Systolic blood 2022-08-30 14:46:00 132 mm[Hg] Lalita Seybold - pressure External Diastolic blood 2022-08-30 14:46:00 74 mm[Hg] Destiney y Seybold - pressure External Heart rate 2022-08-30 14:46:00 71 /min Lalita S eybold - External Body temperature 2022-08-30 14:46:00 36.56 Edna Lucita ey Seybold - External Respiratory rate 2022-08-30 14:46:00 14 /min Lucita mcgrath Seybold - External Body height 2022-08-30 14:46:00 170.2 cm Lalita Rios eybold - External Body weight 2022-08-30 14:46:00 87.544 kg Lalita Rios eybold - External BMI 2022-08-30 14:46:00 30.23 kg/m2 Lalita Rios eybold - External Oxygen saturation in 2022-08-30 14:46:00 99 /min Lalita Chester - Arterial blood by External Pulse oximetry Systolic blood 2022-08-27 19:21:00 130 mm[Hg] Lalita Seybold - pressure External Diastolic blood 2022-08-27 19:21:00 68 mm[Hg] Destiney sampson Sealaynaold - pressure External Heart rate 2022-08-27 19:21:00 68 /min Lalita Rios eybold - External Body height 2022-08-27 19:21:00 170.2 cm Lalita Rios eybold - External Body weight 2022-08-27 19:21:00 86.637 kg Lalita Rios eybold - External BMI 2022-08-27 19:21:00 29.91 kg/m2 Lalita Rios eybold - External Body height 2022-07-23 15:33:00 170.2 cm Lalita S eybold - External Body weight 2022-07-23 15:33:00 85.73 kg Lalita Rios eybold - External BMI 2022-07-23 15:33:00 29.60 kg/m2 Lalita S eybold - External Body height 2022-07-19 14:30:00 170.2 cm Lalita S eybold - External Body weight 2022-07-19 14:30:00 82.555 kg Lalita Rios eybold - External BMI 2022-07-19 14:30:00 28.51 kg/m2 Lalita S eybold - External Systolic blood 2021-06-15 16:12:00 150 mm[Hg] [facility] Diastolic blood 2021-06-15 16:12:00 80 mm[Hg] [facility] Heart rate 2021-06-15 16:12:00 61 /min [facility] Body temperature 2021-06-15 16:12:00 36.22 Ed[facility] Body height 2021-06-15 16:12:00 170.2 cm [facility] Body weight 2021-06-15 16:12:00 75.388 kg [facility] BMI 2021-06-15 16:12:00 26.03 kg/m2 [facility] Systolic blood 2021-05-31 23:00:00 142 mm[Hg] [facility] Diastolic blood 2021-05-31 23:00:00 75 mm[Hg] [facility] Heart rate 2021-05-31 23:00:00 94 /[facility] 2021-05-31 23:00:00 170.2 cm [facility] Body weight 2021-05-31 23:00:00 75.932 kg [facility] BMI 2021-05-31 23:00:00 26.22 kg/m2 [facility] h Systolic blood 2021-04-09 06:10:00 124 mm[Hg] Univer sity of pressure [facility] Diastolic blood 2021-04-09 06:10:00 99 mm[Hg] Unive rsity of pressure [facility] Heart rate 2021-04-09 06:10:00 57 /min [facility] Oxygen saturation in 2021-04-09 06:10:00 96 /min [facility] Arterial blood by [facility] Pulse oximetry Branch Respiratory rate 2021-04-09 05:08:00 18 /min [facility] Body temperature 2021-04-08 22:42:00 36.28 Edna [facility] Systolic blood 2021-02-06 05:00:00 149 mm[Hg] [facility]iver [facility]ity [facility] pressure [facility] Diastolic blood 2021-02-06 05:00:00 65 mm[Hg] Unive [facility]ity of pressure [facility] Heart rate 2021-02-06 05:00:00 82 /min [facility] Respiratory rate 2021-02-06 05:00:00 16 /min Univ ers[facility] of [facility] Oxygen saturation in 2021-02-06 05:00:00 97 /min [facility] Arterial blood by [facility] Pulse oximetry Branch Body temperature 2021-02-06 03:01:00 37 Edna [facility] Body weight 2021-02-06 03:01:00 86.183 kg [facility] BMI 2021-02-06 03:01:00 28.89 kg/m2 [facility] Systolic blood 2021-02-06 05:00:00 149 mm[Hg] Univer sity of pressure [facility] Diastolic blood 2021-02-06 05:00:00 65 mm[Hg] Unive rsity of [facility] Heart rate 2021-02-06 05:00:00 82 /min [facility] Respiratory rate 2021-02-06 05:00:00 16 /min [facility] Oxygen saturation in 2021-02-06 05:00:00 97 /min [facility] Arterial blood by [facility] Pulse oximetry [place] Body temperature 2021-02-06 03:01:00 37 Edna [facility] Body weight 2021-02-06 03:01:00 86.183 kg [facility] BMI 2021-02-06 03:01:00 28.89 kg/m2 [facility] Body height 2021-01-27 14:25:22 [facility].2 cm [facility] Body weight 2021-01-27 14:25:22 83.182 kg [facility] BMI 2021-01-27 14:25:22 28.72 kg/m2 [facility] Body height 2021-01-27 14:25:22 170.2 cm [facility] Body weight 2021-01-27 14:25:22 83.182 kg [facility] BMI 2021-01-27 14:25:22 28.72 kg/m2 [facility] Body height 2021-01-27 14:25:22 170.2 cm [facility] Body weight 2021-01-27 14:25:22 83.182 kg [facility] BMI 2021-01-27 14:25:22 28.72 kg/m2 [facility] Body height 2021-01-27 14:25:22 170.2 cm [facility] Body weight 2021-01-27 14:25:22 83.182 kg [facility] BMI 2021-01-27 14:25:22 28.72 kg/m2 [facility] Systolic blood 2021-01-02 14:57:00 143 mm[Hg] [facility] pressure Diastolic blood 2021-01-02 14:57:00 85 mm[Hg] [facility] Heart rate 2021-01-02 14:57:00 58 /min [facility] Body temperature 2021-01-02 14:57:00 35.78 Edna [facility] Body height 2021-01-02 14:57:00 170.2 cm [facility] Body weight 2021-01-02 14:57:00 86.773 kg [facility] BMI 2021-01-02 14:57:00 29.96 kg/m2 [facility] Systolic blood 2021-01-02 14:57:00 143 mm[Hg] [facility] Diastolic blood 2021-01-02 14:57:00 85 mm[Hg] [facility] Heart rate 2021-01-02 14:57:00 58 /min [facility] temperature 2021-01-02 14:57:00 35.78 [facility] height 2021-01-02 14:57:00 170.2 [facility] weight 2021-01-02 14:57:00 86[facility]773 [facility] BMI 2021-01-02 14:57:00 29.96 kg[facility]m2 [facility] height 2020-06-27 08:30:00 67 [in_i] [facility] weight 2020-06-27 08:30:00 192 [lb_av] [facility] temperature 2020-06-27 08:30:00 97.3 [degF] [facility] bmi 2020-06-27 08:30:00 30.07 kg/m2 [facility] blood pressure 2020-06-27 08:30:00 122 mm[Hg] [facility] blood pressure 2020-06-27 08:30:00 80 mm[Hg] [facility] Systolic blood 2019-10-12 19:12:00 119 mm[Hg] Univer sity of pressure [facility] Diastolic blood 2019-10-12 19:12:00 77 mm[Hg] Unive rsity of pressure [facility] Heart rate 2019-10-12 19:12:00 71 /min [facility] Body temperature 2019-10-12 19:12:00 36.5 Edna [facility] Respiratory rate 2019-10-12 19:12:00 20 /min [facility] Body height 2019-10-12 19:12:00 172.7 cm [facility] Body weight 2019-10-12 19:12:00 86.183 kg [facility] BMI 2019-10-12 19:12:00 28.89 kg/m2 [facility] Oxygen saturation in 2019-10-12 19:12:00 97 /min [facility] Arterial blood by [facility] Pulse oximetry Branch Systolic blood 2019-10-12 19:12:00 119 mm[Hg] [facility] Diastolic blood 2019-10-12 19:12:00 77 mm[Hg] [facility] Heart rate 2019-10-12 19:12:00 71 /min [facility] Body temperature 2019-10-12 19:12:00 36.5 [place] [facility] Respiratory rate 2019-10-12 19:12:00 20 /min [facility] Body height 2019-10-12 19:12:00 172.7 cm [facility] Body weight 2019-10-12 19:12:00 86.183 kg [facility] BMI 2019-10-12 19:12:00 28.89 kg/m2 [facility] Oxygen saturation in 2019-10-12 19:12:00 97 /min [facility] Arterial blood by [facility] Pulse oximetry Branch Respitory Rate 2021-08-15 16:42:00 [facility] [place] Systolic (mm Hg) 2021-08-15 16:42:00 [facility] [place] Diastolic (mm Hg) 2021-08-15 16:42:00 [facility] [place] Respitory Rate 2021-08-15 16:30:00 [facility] Systolic (mm Hg) 2021-08-15 16:30:00 [facility] Diastolic (mm Hg) 2021-08-15 16:30:00 [facility] [place] Respitory Rate 2021-08-15 16:15:00 [facility] [place] Systolic (mm Hg) 2021-08-15 16:15:00 [facility] Diastolic (mm Hg) 2021-08-15 16:15:00 [facility] Height 2021-08-15 14:30:00 170.18 cm [facility] [place] Weight 2021-08-15 14:30:00 [facility] BMI Calculated 2021-08-15 14:30:00 [facility] Heart Rate 2021-08-15 14:30:00 [facility] [place] Height 2021-08-08 15:00:00 170.18 cm [facility] [place] Weight 2021-08-08 15:00:00 [facility] [place] BMI Calculated 2021-08-08 15:00:00 [facility] Height 2021-05-30 19:38:00 167.64 cm [facility] Weight 2021-05-30 19:38:00 [facility] BMI Calculated 2021-05-30 19:38:00 [facility] [place] Respitory Rate 2021-05-03 21:22:00 [facility] Systolic (mm Hg) 2021-05-03 21:22:00 [facility] Diastolic (mm Hg) 2021-05-03 21:22:00 [facility] [place] Respitory Rate 2021-05-03 21:07:00 [facility] Systolic (mm Hg) 2021-05-03 21:07:00 [facility] Diastolic (mm Hg) 2021-05-03 21:07:00 [facility] [place] Respitory Rate 2021-05-03 20:52:00 [facility] [place] Systolic (mm Hg) 2021-05-03 20:52:00 [facility] [place] Diastolic (mm Hg) 2021-05-03 20:52:00 [facility] Height 2021-05-01 16:14:00 170.18 cm [facility] Weight 2021-05-01 16:14:00 [facility] [place] BMI Calculated 2021-05-01 16:14:00 [facility] [place] Height 2021-04-26 15:42:00 170.18 cm [facility] [place] Weight 2021-04-26 15:42:00 [facility] BMI Calculated 2021-04-26 15:42:00 [facility] [place] Temperature Oral (F) 2021-04-11 21:14:00 98.0 F [facility] [place] Heart Rate 2021-04-11 21:14:00 [facility] [place] Respitory Rate 2021-04-11 21:14:00 [facility] Systolic (mm Hg) 2021-04-11 21:14:00 [facility] Diastolic (mm Hg) 2021-04-11 21:14:00 [facility] [place] Temperature Oral (F) 2021-04-11 17:16:00 97.5 F [facility] [place] Heart Rate 2021-04-11 17:16:00 [facility] Respitory Rate 2021-04-11 17:16:00 [facility] [place] Systolic (mm Hg) 2021-04-11 17:16:00 [facility] [place] Diastolic (mm Hg) 2021-04-11 17:16:00 [facility] [place] Temperature Oral (F) 2021-04-11 13:21:00 97.6 F [facility] [place] Heart Rate 2021-04-11 13:21:00 [facility] [place] Respitory Rate 2021-04-11 13:21:00 [facility] Systolic (mm Hg) 2021-04-11 13:21:00 [facility] Diastolic (mm Hg) 2021-04-11 13:21:00 [facility] Height 2021-04-09 08:18:00 170.18 cm [facility] Weight 2021-04-09 08:18:00 [facility] [place] BMI Calculated 2021-04-09 08:18:00 [facility] Height 2021-03-28 18:46:00 167.64 cm [facility] [place] Weight 2021-03-28 18:46:00 [facility] [place] BMI Calculated 2021-03-28 18:46:00 [facility] Systolic (mm Hg) 2021-03-17 19:53:00 [facility] Diastolic (mm Hg) 2021-03-17 19:53:00 [facility] Heart Rate 2021-03-17 19:53:00 [facility] [place] Respitory Rate 2021-03-17 19:53:00 [facility] Height 2021-03-17 19:53:00 167.64 cm [facility] [place] Weight 2021-03-17 19:53:00 [facility] BMI Calculated 2021-03-17 19:53:00 [facility] Systolic (mm Hg) 2021-02-13 15:43:00 [facility] Diastolic (mm Hg) 2021-02-13 15:43:00 [facility] Heart Rate 2021-02-13 15:43:00 [facility] [place] Height 2021-02-13 15:43:00 170.18 cm [facility] [place] Weight 2021-02-13 15:43:00 [facility] BMI Calculated 2021-02-13 15:43:00 [facility] [place] Heart Rate 2021-02-12 12:26:47 [facility] Systolic (mm Hg) 2021-02-12 12:26:42 [facility] Diastolic (mm Hg) 2021-02-12 12:26:42 [facility] Heart Rate 2021-02-12 12:26:42 [facility] Temperature Oral (F) 2021-02-12 12:26:15 97.6 F [facility] Heart Rate 2021-02-12 04:51:44 [facility] [place] Systolic (mm Hg) 2021-02-12 04:51:37 [facility] Diastolic (mm Hg) 2021-02-12 04:51:37 [facility] Temperature Oral (F) 2021-02-11 20:19:04 98.3 F [facility] Systolic (mm Hg) 2021-02-11 20:18:56 [facility] Diastolic (mm Hg) 2021-02-11 20:18:56 [facility] Temperature Oral (F) 2021-02-11 20:18:00 98.0 F [facility] Respitory Rate 2021-02-10 20:27:54 [facility] Respitory Rate 2021-02-10 16:05:00 [facility] [place] Respitory Rate 2021-02-10 15:55:00 [facility] Height 2021-02-10 12:54:00 170.18 cm [facility] Weight 2021-02-10 12:54:00 [facility] [place] BMI Calculated 2021-02-10 12:54:00 [facility] [place] Height 2021-02-10 01:12:00 170.18 cm [facility] [place] BMI Calculated 2021-02-10 01:12:00 [facility] [place] Weight 2021-02-10 01:12:00 [facility] Respitory Rate 2021-01-30 13:15:00 [facility] Systolic (mm Hg) 2021-01-30 13:15:00 [facility] Diastolic (mm Hg) 2021-01-30 13:15:00 [facility] Respitory Rate 2021-01-30 13:00:00 [facility] [place] Systolic (mm Hg) 2021-01-30 13:00:00 [facility] Diastolic (mm Hg) 2021-01-30 13:00:00 [facility] Respitory Rate 2021-01-30 12:45:00 [facility] [place] Systolic (mm Hg) 2021-01-30 12:45:00 [facility] Diastolic (mm Hg) 2021-01-30 12:45:00 [facility] [place] Heart Rate 2021-01-30 12:04:00 [facility] Height 2021-01-27 14:25:00 170.18 cm [facility] [place] Weight 2021-01-27 14:25:00 [facility] BMI Calculated 2021-01-27 14:25:00 [facility] Respitory Rate 2021-01-17 17:35:00 [facility] Systolic (mm Hg) 2021-01-17 17:35:00 [facility] Diastolic (mm Hg) 2021-01-17 17:35:00 [facility] [place] Respitory Rate 2021-01-17 17:18:00 [facility] Systolic (mm Hg) 2021-01-17 17:18:00 [facility] [place] Diastolic (mm Hg) 2021-01-17 17:18:00 [facility] Respitory Rate 2021-01-17 17:13:00 [facility] Systolic (mm Hg) 2021-01-17 17:13:00 [facility] [place] Diastolic (mm Hg) 2021-01-17 17:13:00 [facility] [place] Height 2021-01-16 13:57:00 170.18 cm [facility] Weight 2021-01-16 13:57:00 [facility] BMI Calculated 2021-01-16 13:57:00 [facility] Respitory Rate 2020-12-16 16:03:00 [facility] Systolic (mm Hg) 2020-12-16 16:03:00 [facility] [place] Diastolic (mm Hg) 2020-12-16 16:03:00 [facility] Respitory Rate 2020-12-16 15:49:00 [facility] [place] Systolic (mm Hg) 2020-12-16 15:49:00 [facility] [place] Diastolic (mm Hg) 2020-12-16 15:49:00 [facility] Weight 2020-12-16 14:48:00 [facility] BMI Calculated 2020-12-16 14:48:00 [facility] Respitory Rate 2020-12-16 14:42:00 [facility] Systolic (mm Hg) 2020-12-16 14:42:00 [facility] Diastolic (mm Hg) 2020-12-16 14:42:00 [facility] [place] Height 2020-12-08 21:04:00 170.18 cm [facility] [place] Procedures Procedure Date / Time Performing Source Performed Clinician KENNEDYAF 2023-01-29 Abigail Banegas - 15:08:17 External FEMUR LEFT 2022-07-19 Melvin Strickland - 14:57:27 External HIP LEFT 2022-07-19 Melvin Strickland - 14:56:57 External Esophagogastroduodenoscopy, 2021-08-15 [facility] [place] flexible, transoral; with biopsy, 16:38:00 single or multiple PHYSICIAN ORDERS 2021-07-18 [facility] 06:01:00 Unassigned, No [facility] Cystourethroscopy, with removal of 2021-05-30 [facility] [place] foreign body, calculus, or 20:40:00 ureteral stent from urethra or bladder (separate procedure); simple XR FEMUR 2+ VW LEFT 2021-04-24 [facility] 18:22:40 ORIF - Open reduction and internal 2021-04-10 [facility] fixation of fracture 05:00:00 COMP. METABOLIC PANEL (97807) 2021-04-09 Elicia Gasca [facility] 00:42:00 [facility] CBC WITH DIFF 2021-04-09 Elicia Gasca [place] [facility] 00:42:00 [facility] PROTHROMBIN TIME / INR 2021-04-09 [facility] 00:[facility]00 [facility] ACTIVATED PARTIAL THRMPLAS MICHAEL 2021-04-09 Elicia Gasca [place] [facility] 00:42:00 [facility] COVID-19 (ID NOW RAPID TESTING) 2021-04-09 Elicia Gasca [facility] 00:42:00 [facility] XR HIPS 2 VW LEFT 2021-04-08 Elicia Gasca [facility] 23:39:08 [facility] XR PELVIS <3 VW 2021-04-08 Elicia Gasca [facility] 23:39:08 [facility] Cystourethroscopy (separate 2021-03-28 [facility] [place] procedure) 20:04:00 URINALYSIS 2021-02-06 Siria Manzo [facility] [facility] 05:06:[address] [facility] [address] ABDOMEN PELVIS W CONTRAST 2021-02-06 Siria Manzo [facility] of 04:54:44 [facility] XR CHEST 1 VW 2021-02-06 Siria Manzo [facility] [facility] 03:57:46 [facility] LIPASE 2021-02-06 Siria Manzo [facility] [facility] 03:22:00 [facility] TROPONIN I 2021-02-06 Siria Manzo [place] [facility] 03:22:00 [facility] COMP. METABOLIC PANEL (96962) 2021-02-06 Siria Manzo [facility] 03:22:00 [facility] CBC WITH DIFF 2021-02-06 Siria Manzo [place] [facility] 03:22:00 [facility] PROTHROMBIN TIME / INR 2021-02-06 Siria Manzo [facility] of 03:22:00 [facility] ACTIVATED PARTIAL THRMPLAS MICHAEL 2021-02-06 Siria Manzo [facility] 03:22:00 [facility] Tonsillectomy [facility] Bilateral tubal ligation Johnie Tong Bariatric operative procedure Me morial Ran EGD - Esophagogastroduodenoscopy [facility] Encounters Start End Encounter Admission Attending Care Care Encounter Source Date/Time Date/Time Type Type Clinicians Facility Department ID 2022-06-12 Outpatient [facility] [id number] [place] 12:52:40 [id number] [facility] 2021-07-19 Outpatient Feaver, ST[facility]ML[facility] [id number] Common 11:29:35 Baljeet [id number] [facility] 2021-07-19 [facility] [id number] Common 11:28:06 Baljeet [id number] [facility] 2021-07-19 [facility] [id number] Common 11:16:43 Baljeet [id number] [facility] 2021-07-19 [facility] [id number] Common 11:06:01 Baljeet [id number] [facility] 2021-07-19 [facility] [id number] Common 11:05:40 Baljeet [id number] [facility] 2021-07-10 Outpatient CAYDEN, [facility] [id number] [place] 01:04:30 [facility] 2021-05-12 Outpatient [facility] [id number] [place] 01:03:22 [facility] 2021-04-25 Emergency [facility] [id number] Univers 07:19:49 ity of [facility] 2021-04-24 Emergency [facility] [id number] [facility] JOCELYN, [facility] [id number] [place] 13:46:02 [facility] 2021-04-24 Outpatient [facility] [id number] [place] 13:05:18 [facility] 2021-04-12 Outpatient DAYSI WESTON MHSE [id number] 15:46:50 [facility] 2021-03-02 Outpatient ENRICO, [facility] [id number] [place] 01:04:34 [facility] 2021-01-04 Outpatient BRIDGETT, [facility] [id number] [place] 15:22:28 [facility] 2023-02-11 2023-02-11 Outpatient SAROJApoorva, LALITA SHELDON [id number] [place] 00:00:00 00:00:00 ABIGAIL Seybol d 2023-02-05 2023-02-05 Outpatient LAB90 LALITA SHELDON [id number] [place] 08:40:00 08:40:00 Seybol d 2023-02-05 2023-02-05 Outpatient HUNDL, LALITA SHELDON [id number] [place] 00:00:00 00:00:00 ABIGAIL Seybol d 2023-01-30 2023-01-30 Outpatient HUNDL, LALITA SHELDON [id number] [place] 00:00:00 00:00:00 ABIGAIL Seybol d 2023-01-29 2023-01-29 Outpatient LALITA SHELDON [id number] [place] 13:20:00 13:20:00 Seybol d 2023-01-29 2023-01-29 Outpatient HUNDL, LALITA SHELDON [id number] [place] 10:00:00 10:00:00 ABIGAIL Seybol d 2023-01-24 2023-01-24 Outpatient ABSALVATORE, LALITA SHELDON [id number] [place] 00:00:00 00:00:00 RAJA Seybol d 2023-01-23 2023-01-23 Outpatient LALITA SHELDON [id number] [place] 00:00:00 00:00:00 Seybol d 2023-01-16 2023-01-16 Outpatient PREZAS, LALITA SHELDON [id number] [place] 08:30:00 08:30:00 MAIKEL Seybol d 2023-01-16 2023-01-16 Outpatient LALITA SHELDON [id number] [place] 00:00:00 00:00:00 Seybol d 2022-12-31 2022-12-31 Outpatient LALITA WELDON [id number] [place] 10:00:00 10:00:00 LISETTE Seyb old 2022-12-27 2022-12-27 Outpatient LALITA WELDON [id number] [place] 00:00:00 00:00:00 LISETTE Seyb old 2022-10-31 2022-10-31 Outpatient LALITA KILGORE [id number] [place] 00:00:00 00:00:00 MAIKEL Seybol d 2022-10-29 2022-10-29 Outpatient LALITA SHELDON [id number] [place] 10:20:00 10:20:00 Seybol d 2022-10-29 2022-10-29 Outpatient LALITA WELDON [id number] [place] 10:10:00 10:10:00 LISETTE Seyb old 2022-10-24 2022-10-24 Outpatient MORENITA CASTELLANO [id number] [place] 08:30:00 08:30:00 Seybol d 2022-10-23 2022-10-23 Outpatient LALITA WELDON [id number] [place] 00:00:00 00:00:00 LISETTE Seyb old 2022-10-19 2022-10-19 Outpatient PRELALITA MATHIAS [id number] [place] 14:30:00 14:30:00 MAIKEL Seybol d 2022-10-17 2022-10-17 Outpatient LALITA KILGORE [id number] [place] 13:30:00 13:30:00 MAIKEL Seybol d 2022-10-11 2022-10-11 Outpatient LALITA HARRIS [id number] [place] 09:00:00 09:00:00 DON Seybol d 2022-10-02 2022-10-02 Outpatient LALITA WELDON [id number] [place] 00:00:00 00:00:00 LISETTE Seyb old 2022-10-01 2022-10-01 Outpatient LALITA WILLIAM [id number] [place] 13:00:00 13:00:00 JARON Seybol d 2022-10-01 2022-10-01 Outpatient LALITA KILGORE [id number] [place] 00:00:00 00:00:00 MAIKEL Seybol d 2022-09-24 2022-09-24 Outpatient LALITA WELDON [id number] [place] 00:00:00 00:00:00 LISETTE Seyb old 2022-09-24 2022-09-24 Outpatient LALITA REBOLLAR [id number] [place] 00:00:00 00:00:00 YUSUF Seybol d 2022-09-22 2022-09-22 Outpatient LALITA BELCHER [id number] [place] 10:00:00 10:00:00 NAMPHUONG Seyb old 2022-09-20 2022-09-20 Outpatient LALITA OJEDA [id number] [place] 09:40:00 09:40:00 DONALD Seybo ld 2022-09-19 2022-09-19 Outpatient LALITA SHELDON [id number] [place] 00:00:00 00:00:00 Seybol d 2022-09-18 2022-09-18 [id number] [facility] 07:30:00 15:00:00 Lisette [facility] 2022-09-18 2022-09-18 Outpatient LALITA WELDON [id number] [place] 09:40:00 09:40:00 LISETTE Seyb old 2022-09-17 2022-09-17 Outpatient LALITA WELDON [id number] [place] 00:00:00 00:00:00 LISETTE Seyb old 2022-09-14 2022-09-14 Outpatient TOBIN SIMMONS [id number] [place] 08:15:00 08:15:00 Seybol d 2022-09-14 2022-09-14 Outpatient LALITA KILGORE [id number] [place] 00:00:00 00:00:00 MAIKEL Seybol d 2022-09-14 2022-09-14 Outpatient LALITA KILGORE [id number] [place] 00:00:00 00:00:00 MAIKEL Seybol d 2022-09-13 2022-09-13 Outpatient LALITA SHELDON [id number] [place] 10:30:00 10:30:00 Seybol d 2022-08-31 2022-08-31 Outpatient TOBIN SIMMONS LALITA SHELDON [id number] [place] 08:15:00 08:15:00 Seybol d 2022-08-30 2022-08-30 Outpatient LAB90 LALITA SHELDON [id number] [place] 09:30:00 09:30:00 Seybol d 2022-08-30 2022-08-30 Outpatient PREZASLALITA [id number] [place] 08:45:00 08:45:00 MAIKEL Seybol d 2022-08-29 2022-08-29 Outpatient SHIRAZLALITA [id number] [place] 00:00:00 00:00:00 LISETTE Seyb old 2022-08-29 2022-08-29 Outpatient PREZASLALITA [id number] [place] 00:00:00 00:00:00 MAIKEL Seybol d 2022-08-28 2022-08-28 Outpatient LALITA SHELDON [id number] [place] 11:15:00 11:15:00 Seybol d 2022-08-28 2022-08-28 Outpatient LALITA SHELDON [id number] [place] 09:30:00 09:30:00 Seybol d 2022-08-28 2022-08-28 Outpatient PREZALALITA Rios [id number] [place] 08:30:00 08:30:00 MAIKEL Seybol d 2022-08-27 2022-08-27 Outpatient NATALIIALALITA HODGE [id number] [place] 13:30:00 13:30:00 JARON Seybol d 2022-08-23 2022-08-23 Outpatient PREZASLALITA [id number] [place] 00:00:00 00:00:00 MAIKEL Seybol d 2022-08-21 2022-08-21 Outpatient PREZALALITA Rios [id number] [place] 00:00:00 00:00:00 MAIKEL Seybol d 2022-08-21 2022-08-21 Outpatient LALITA SHELDON [id number] [place] 00:00:00 00:00:00 Seybol d 2022-07-26 2022-07-26 Outpatient EDUCATION LALITA SHELDON [id number] [place] 09:00:00 09:00:00 TOTAL Seybol d 2022-07-25 2022-07-25 Outpatient LALITA SHELDON [id number] [place] 00:00:00 00:00:00 Seybol d 2022-07-23 2022-07-23 Outpatient LALITA SHELDON [id number] [place] 10:25:00 10:25:00 Seybol d 2022-07-23 2022-07-23 Outpatient SHIRAZ LALITA SHELDON [id number] [place] 09:30:00 09:30:00 LISETTE Seyb old 2022-07-23 2022-07-23 Outpatient LALITA STRICKLAND [id number] [place] 08:40:00 08:40:00 MELVIN Seybol d 2022-07-19 2022-07-19 Outpatient LALITA SHELDON [id number] [place] 08:50:00 08:50:00 Seybol d 2022-07-19 2022-07-19 Outpatient LALITA SHELDON [id number] [place] 08:45:00 08:45:00 Seybol d 2022-07-19 2022-07-19 Outpatient LALITA STRICKLAND [id number] [place] 08:40:00 08:40:00 MELVIN Seybol d 2022-03-15 2022-03-15 Outpatient DINH LALITA SHELDON [id number] [place] 00:00:00 00:00:00 MAIKEL Seybol d 2022-02-09 2022-02-09 Office TRICIA STRICKLAND [id number] [place] 14:30:00 14:30:00 Visit MELVIN THOMSON [id number] Se ybold [id number] 2022-02-09 2022-02-09 Outpatient LALITA SHELDON [id number] [place] 14:10:00 14:10:00 Seybol d 2022-02-06 2022-02-06 Outpatient LALITA KILGORE [id number] [place] 00:00:00 00:00:00 MAIKEL Seybol d 2022-02-06 2022-02-06 Outpatient EZEKIEL LALITA SHELDON [id number] [place] 00:00:00 00:00:00 MELVIN Seybol d 2022-01-25 2022-01-25 Outpatient LALITA KILGORE LALITA [id number] [place] 00:00:00 00:00:00 MAIKEL Seybol d 2022-01-12 2022-01-12 Office AugustoTobin mathias [id number] [place] 08:30:00 09:00:00 Visit Maikel Ladd [id number] Se abbi [id number] 2022-01-10 2022-01-10 Outpatient MAKENZIE LALITA SHELDON [id number] [place] 08:00:00 08:00:00 ABIGAIL Seybol d 2022-01-08 2022-01-08 Outpatient MARLYSROZ [place] LALITA SHELDON [id number] [place] 00:00:00 00:00:00 Seybol d 2021-10-16 2021-10-16 Ambulatory nullFlavo [facility] [id number] Memoria 15:40:00 15:40:00 Pre-Reg r Specialty 14 l Clinic [facility] 2021-10-16 2021-10-16 Ambulatory nullFlavo [facility] 49 [id number] Memoria 15:40:00 15:40:00 Pre-Reg r Specialty 14 l [facility] 2021-10-16 2021-10-16 Outpatient MHIE [facility] [id number] Memoria 10:40:00 10:40:00 14 l [place] 2021-10-16 2021-10-16 Outpatient Nancy, [facility] [id number] 10:40:00 10:40:00 Sharif L 14 2021-08-15 2021-08-16 Day nullFlavo [facility] [id number] Memoria 12:28:00 05:59:00 Surgery r [address] 2021-08-15 2021-08-16 Day nullFlavo [facility] [id number] Memoria 12:28:00 05:59:00 Surgery [place] [address] [place] [address] 2021-08-15 2021-08-15 Outpatient Kleber, [facility] [id number] 06:28:00 23:59:00 Sharon Nicholas 2021-08-15 2021-08-15 Outpatient Kleber, [facility] [id number] 06:28:00 23:59:00 Sharon Nicholas 2021-08-15 2021-08-15 Outpatient KLEBER, [facility] BELKIS [id number] [facility] 06:28:00 23:59:00 SHARON 2021-08-01 2021-08-01 Outpatient R ZAMZAM, [facility] [id number] [facility] 08:00:00 08:00:00 SEUN lug[facility] 2021-07-18 2021-07-18 [place] [id number] Memoria 20:15:00 20:15:00 Pre-Reg r Urology 13 [facility] Time Share 2021-07-18 2021-07-18 [place] [id number] Memoria 20:15:00 20:15:00 Pre-Reg r Urology 13 [facility] Time Share 2021-07-18 2021-07-18 Outpatient MHIE IE [id number] Memoria 14:15:00 14:15:[address] [place] [address] 2021-07-18 2021-07-18 [facility] [id number] 14:15:00 14:15:00 Sharif Garcia 13 2021-07-18 2021-07-18 Orders Doctor SHARON [id number] Univers 00:00:00 00:00:00 Only Unassigned, CHANTELL [id number] ity of [place] [facility] [id number] Jesus as [id number] [address] 2021-06-15 2021-06-15 Office EPIFANIO Shahid [facility] [id number] [place] 10:15:00 10:37:58 Visit Sharon FABRICIO [id number] [address] [id number] 2021-05-31 2021-05-31 Office EPIFANIO Olvera [id number] [place] 16:30:00 17:49:19 Visit Francisco BRYAN [id number] [facility] [id number] BUILDING [id number] 2021-05-30 2021-05-31 Outpatient nullFlavo [facility] [id number] Memoria 20:15:00 05:59:59 [facility] 2021-05-30 2021-05-31 Outpatient nullFlavo [facility] [id number] Memoria 20:15:00 05:59:59 r [facility] Time [facility] 2021-05-30 2021-05-31 Outpatient nullFlavo [facility] [id number] Memoria 20:15:00 05:59:59 r [facility] nn Time Share 2021-05-30 2021-05-31 Outpatient nullFlavo [facility] [id number] Memoria 20:15:00 05:59:59 r [facility] Hermila nn Time Share 2021-05-30 2021-05-30 Outpatient Staller, [facility] [id number] 14:15:00 23:59:59 Sharif L 11 2021-05-30 2021-05-30 Outpatient Staller, [facility] [id number] 14:15:00 23:59:59 Sharif L 12 2021-05-30 2021-05-30 Outpatient MHIE MHIE [id number] Memoria 14:15:00 14:15:00 12 [facility] 2021-05-30 2021-05-30 Outpatient MHIE MHIE [id number] Memoria 14:15:00 14:15:00 11 [facility] 2021-05-24 2021-05-25 Outpatient [facility]Fl[facility] [id number] [facility] 15:43:00 05:59:00 r Ran [address] [place] [address] 2021-05-24 2021-05-25 Outpatient [facility]Flavo [facility] [id number] [facility] 15:43:00 05:59:[address] 2021-05-24 2021-05-24 Outpatient WIL WESTONSE [facility] [id number] 09:43:00 23:59:00 [facility] art [facility] 2021-05-24 2021-05-24 Outpatient Enrico MHSE MHSE [id number] 09:43:00 23:59:00 Carlee Walden 08 2021-05-16 2021-05-17 Outpatient nullFlavo [facility] [id number] Memoria 17:15:00 05:59:59 r Urology 10 l Alonzo Ramona [facility] 2021-05-16 2021-05-17 [place] [id number] Memoria 17:15:00 05:59:59 r Urology 10 l Dameron [facility] 2021-05-16 2021-05-16 Outpatient Nancy, [place] [id number] 11:15:00 23:59:59 Sharif L 10 2021-05-16 2021-05-16 Outpatient MHIE WILIE [id number] Memoria 11:15:00 11:15:00 10 [facility] 2021-05-10 2021-05-11 [place] [id number] Memoria 14:30:00 05:59:59 r Urology 09 l Alonzo Hermila Time Share 2021-05-10 2021-05-11 [place] [id number] Memoria 14:30:00 05:59:59 r Urology 09 l Alonzo Hermila Time Share 2021-05-10 2021-05-10 Outpatient Staller, MG [place] [id number] 08:30:00 23:59:59 Sharif L 09 2021-05-10 2021-05-10 Outpatient MHIE MHIE [id number] Memoria 08:30:00 08:30:00 09 [facility] 2021-05-03 2021-05-03 Day nullFlavo [facility] [id number] Memoria 16:25:00 22:06:00 Surgery r [place] 06 [facility] 2021-05-03 2021-05-03 Day nullFlavo [facility] [id number] Memoria 16:25:00 22:06:00 Surgery [facility] 06 [facility] 2021-05-03 2021-05-03 Outpatient Nancy, MHPL MHPL [id number] 10:25:00 16:06:00 Sharif L 06 2021-05-03 2021-05-03 Outpatient Nancy, MHPL MHPL [id number] 10:25:00 16:06:00 Sharif L 06 2021-05-03 2021-05-03 Outpatient NANCY, MHBL BELKIS [id number] MHBL 10:25:00 16:06:00 SHARIF 2021-04-28 2021-04-29 Between nullFlavo MHMG [id number] Memoria 15:53:08 15:53:08 Visit r Urology 07 l Alonzo felton Leo 2021-04-28 2021-04-29 Between nullFlavo MHMG [id number] Memoria 15:53:08 15:53:08 Visit r Urology 07 Alonzo felton Leo 2021-04-28 2021-04-29 Outpatient MHMG MHMG [id number] 10:53:08 10:53:08 2021-04-28 2021-04-28 Ambulatory nullFlavo MNA [id number] Memoria 19:00:00 19:00:00 Pre-Reg r Neurology 04 l Roderick [place] 2021-04-28 2021-04-28 Ambulatory nullFlavo MNA [id number] Memoria 19:00:00 19:00:00 Pre-Reg r Neurology 04 l Roderick Tong 2021-04-28 2021-04-28 Outpatient MHIE MHIE [id number] Memoria 14:00:00 14:00:00 Carolynn Tong 2021-04-28 2021-04-28 Outpatient NAOMI Booth [id number] 14:00:00 14:00:00 Luiz Mccauley 2021-04-26 2021-04-27 Outpatient nullFlavo MHMG [id number] Memoria 14:15:00 04:59:59 r Urology 08 apoorva felton Time Share 2021-04-26 2021-04-27 Outpatient nullFlavo MHMG [id number] Memoria 14:15:00 04:59:59 r Urology 08 apoorva felton Time Share 2021-04-26 2021-04-26 Outpatient Nancy, [facility] [id number] 09:15:00 23:59:59 Sharif L 08 2021-04-26 2021-04-26 Outpatient MHIE MHCATHI [id number] Memoria 09:15:00 09:15:00 08 apoorva Tong 2021-04-24 2021-04-24 Office EPIFANIO Banks [facility] [id number] [place] 12:46:39 13:46:25 Visit Daniel SUGAR [id number] He alth [place] [facility] [id number] [address] [id number] 2021-04-24 2021-04-24 Refill EPIFANIO Banks [facility] [id number] [place] 00:00:00 00:00:00 Daniel SUGAR [id number] He alth [place] [id number] [id number] 2021-04-17 2021-04-17 Ambulatory nullFlavo [facility] Multi 49 [id number] Memoria 15:00:00 15:00:00 Pre-Reg r Specialty 07 l Clinic [facility] 2021-04-17 2021-04-17 Ambulatory nullFlavo [facility] Multi 49 [id number] Memoria 15:00:00 15:00:00 Pre-Reg r Specialty 07 l [facility] 2021-04-17 2021-04-17 Outpatient MHIE KIRTI [id number] Memoria 10:00:00 10:00:00 07 apoorva Tong 2021-04-17 2021-04-17 Outpatient Nancy [facility] [id number] 10:00:00 10:00:00 Sharif L 07 2021-04-09 2021-04-12 Inpatient nullFlavo [facility] [id number] Memoria 07:53:00 00:20:00 r [place] [facility]ila 2021-04-09 2021-04-12 Inpatient nullFlavo [facility] [id number] Memoria 07:53:00 00:20:00 r [place] [address] l [place] Hermila 2021-04-09 2021-04-11 Outpatient LAUREN Bhagat [facility] [id number] 02:53:00 19:20:00 Rob Winters 2021-04-09 2021-04-11 Outpatient Olayinka, MHSL SL [id number] 02:53:00 19:20:00 Rob Hunter 89 2021-04-09 2021-04-11 Inpatient OLAYINKA, MHFB MED [id number] FB 02:53:00 19:20:00 ROB 2021-04-08 2021-04-09 Emergency Drever, [facility] [id number] Univers 17:37:00 01:14:00 Elicia Lewis [id number] [facility] [id number] [facility] [id number] [facility] 2021-03-28 2021-03-29 Outpatient nullFlavo MHMG [id number] Memoria 18:45:00 04:59:59 r Urology 06 l Associates Hermila nn Time Share 2021-03-28 2021-03-29 Outpatient nullFlavo MHMG [id number] Memoria 18:45:00 04:59:59 r Urology 05 l Associates Hermila nn Time Share 2021-03-28 2021-03-29 Outpatient nullFlavo MHMG [id number] Memoria 18:45:00 04:59:59 r Urology 05 l Associates Herm[facility] nn Time Share 2021-03-28 2021-03-29 Outpatient nullFlavo MHMG [id number] Memoria 18:45:00 04:59:59 r Urology 06 l Associates [facility] nn Time Share 2021-03-28 2021-03-28 Outpatient Staller, MG MHMG [id number] 13:45:00 23:59:59 Sharif Apoorva 05 2021-03-28 2021-03-28 Outpatient VISIT, MHMG MHMG [id number] 13:45:00 23:59:59 NURSE BRYANNA 06 2021-03-28 2021-03-28 Outpatient MHIE MHIE [id number] Memoria 13:45:00 13:45:00 05 apoorva Tong 2021-03-28 2021-03-28 Outpatient MHIE MHIE [id number] Memoria 13:45:00 13:45:00 06 apoorva Tong 2021-03-21 2021-03-22 [place] [id number] Memoria 20:00:00 04:59:59 r Urology 02 l Associates [facility] nn Time Share 2021-03-21 2021-03-22 [place] [id number] Memoria 20:00:00 04:59:59 r Urology 03 l Associates [facility] nn Time Share 2021-03-21 2021-03-22 [place] [id number] Memoria 20:00:00 04:59:59 r Urology 03 l Associates [facility] nn Time Share 2021-03-21 2021-03-22 [place] [id number] Memoria 20:00:00 04:59:59 r Urology 02 l Associates Hermila nn Time Share 2021-03-21 2021-03-21 Outpatient Nancy, [facility] [id number] 15:00:00 23:59:59 Sharif L 03 2021-03-21 2021-03-21 Outpatient Nancy, [facility] [id number] 15:00:00 23:59:59 Sharif L 02 2021-03-21 2021-03-21 Outpatient MHIE MHIE [id number] Memoria 15:00:00 15:00:00 02 apoorva Tong 2021-03-21 2021-03-21 Outpatient MHIE MHIE [id number] Memoria 15:00:00 15:00:00 03 apoorva Tong 2021-03-17 2021-03-18 Outpatient nullFlavo MNA [id number] Memoria 19:30:00 04:59:59 r Neurology 01 apoorva Tong 2021-03-17 2021-03-18 Outpatient nullFlavo MNA [id number] Memoria 19:30:00 04:59:59 r Neurology 01 apoorva Tong 2021-03-17 2021-03-17 Outpatient NAOMI BoothSCHSILVERIO [id number] 14:30:00 23:59:59 Luiz Mccauley 2021-03-17 2021-03-17 Outpatient MHIE MHIE [id number] Memoria 14:30:00 14:30:00 01 apoorva Tong 2021-02-13 2021-02-14 Outpatient nullFlavo MG Multi [id number] Memoria 19:15:00 04:59:59 r Specialty 00 l [facility] 2021-02-13 2021-02-14 Outpatient nullFlavo MHMG Multi 49 [id number] Memoria 19:15:00 04:59:59 r Specialty 00 l [facility] 2021-02-13 2021-02-13 Outpatient Nancy, MG MG [id number] 14:15:00 23:59:59 Sharif L 00 2021-02-13 2021-02-13 Outpatient MHIE MHIE [id number] Memoria 14:15:00 14:15:00 00 l [place] 2021-02-10 2021-02-12 Inpatient nullFlavo [facility] [id number] Memoria 01:03:51 15:22:00 r [place] 04 [facility] 2021-02-10 2021-02-12 Inpatient nullFlavo [facility] [id number] Memoria 01:03:51 15:22:00 r [place] [address] [place] [address] 2021-02-10 2021-02-12 Inpatient E SAVAGE MHSE MED [id number] MH 01:31:00 10:22:00 LEVAR MORENITA [facility] 2021-02-09 2021-02-12 Outpatient Savage MHSE MHSE [id number] 20:03:51 10:22:00 Levar Morenita 04 [facility] 2021-02-09 2021-02-12 Outpatient Savage MHSE MHSE [id number] 20:03:51 10:22:00 Morenita Cristobal 04 [facility] 2021-02-05 2021-02-06 Emergency [facility] [id number] 21:52:00 01:06:00 Siria Lewis [id number] [place] [id number] [place] [id number] 2021-02-05 2021-02-06 Emergency [facility] [id number] [facility] 21:52:00 01:06:00 Siria Lewis [id number] [facility] [id number] [facility] [id number] [facility] [address] 2021-01-30 2021-01-30 Bedded nullFlavo [facility] [id number] Memoria 11:22:00 13:44:00 Outpatient r [place] 03 l [facility] 2021-01-30 2021-01-30 [facility] [id number] Memoria 11:22:00 13:44:00 Outpatient r Ran 03 [facility] 2021-01-30 2021-01-30 Outpatient ENRICO, MHSE MHSE [id number] MH 06:22:00 08:44:00 [facility] 2021-01-30 2021-01-30 Outpatient Enrico, MHSE MHSE [id number] 06:22:00 08:44:00 Sri Win 03 2021-01-27 2021-01-27 EXT MHH OP Enrico, EXT MSRDP 1.2.840.1 [id number] [place] 00:00:00 00:00:00 [facility] LOCATION [id number] Health [id number] [id number] 2021-01-27 2021-01-27 EXT MHH OP Enrico, EXT MSRDP 1.2.840.1 [id number] [place] 00:00:00 00:00:00 [facility] LOCATION [id number] Health 9.2.7.2.686 [id number] 2021-01-17 2021-01-17 [facility] [id number] Memoria 14:19:00 18:08:00 Outpatient r [place] 02 l [facility] 2021-01-17 2021-01-17 Bedded nullFlavo [facility] [id number] Memoria 14:19:00 18:08:00 Outpatient r Ran 02 [facility] 2021-01-17 2021-01-17 Outpatient ENRICO, MHSE MHSE [id number] MH 09:19:00 13:08:00 [facility] 2021-01-17 2021-01-17 Outpatient Enrico, MHSE MHSE [id number] 09:19:00 13:08:00 Sri Win 2021-01-17 2021-01-17 EXT MHH OP Enrico, EXT MSRDP 1.2.840.1 [id number] [place] 00:00:00 00:00:00 Sri Win LOCATION [id number] Health 9.2.7.2.686 [id number] 2021-01-17 2021-01-17 EXT MHH OP Enrico, EXT MSRDP 1.2.840.1 14 [id number] [place] 00:00:00 00:00:00 Sri Win LOCATION [id number] Health 9.2.7.2.686 [id number] 2021-01-02 2021-01-02 Office [place], UTP MHH [id number] [place] 09:07:41 10:22:48 Visit [facility] [id number] [place] 9.2.7.2.686 [id number] 2021-01-02 2021-01-02 Office [place], UTP MHH [id number] 09:07:41 10:22:48 Visit [facility] [id number] [address] 2 9.2.7.2.686 [id number] 2020-12-22 2020-12-23 Outpt Diag nullFlavo [facility] [id number] Memoria 13:03:00 04:59:00 Services r Outpatient [facility] 2020-12-22 2020-12-23 Outpt Diag nullFlavo [facility] [id number] Memoria 13:03:00 04:59:00 Services r Outpatient [facility] 2020-12-22 2020-12-22 Outpatient Enrico MHOIP MHOIP [id number] 08:03:00 23:59:00 Sri Win 2020-12-16 2020-12-16 Bedded nullFlavo [facility] [id number] Memoria 13:23:00 16:27:00 Outpatient r [place] l [facility] 2020-12-16 2020-12-16 Bedded [facility] [id number] Memoria 13:23:00 16:27:00 Outpatient cathie Tong Brandan l [facility] 2020-12-16 2020-12-16 Outpatient EnricoWILPL MHPL [id number] 08:23:00 11:27:00 Sri Win 2020-12-16 2020-12-16 Outpatient WIL WESTONBL MHBL [id number] MHBL 08:23:00 11:27:00 SRI 2020-06-27 2020-06-27 OFFICE STLMLC STLMLC [id number] mmon 00:00:00 00:00:00 VISIT Spirit ESTAB PT - CHI LEVEL 4 [facility] 2020-01-14 2020-01-14 Outpatient Gary [place] [id number] Common 15:00:00 15:00:00 t Bone Bone [facility] Spiri t and Joint [facility] 2020-01-07 2020-01-07 Out[facility] [id number] Common 11:00:00 11:00:00 t Bone Bone and Spiri t and Joint Joint - [facility] 2019-12-31 2019-12-31 Outpatient [facility] [id number] Common 13:45:00 13:45:00 t Bone Bone and Spiri t and Joint Joint - [facility] 2019-12-16 2019-12-16 Outpatient [facility] [id number] Common 08:49:00 08:49:00 t Bone Bone and Spiri t and Joint Joint - [facility] 2019-11-27 2019-11-27 Outpatient Cathie HOLDER [facility] [id number] Univers 20:00:00 20:00:00 TRE [facility] 2019-10-13 2019-10-13 Telephone Don [facility] [id number] 00:00:00 00:00:00 [facility] [id number] [place] [id number] Professio [phone] nal [facility] Office Building One 2019-10-13 2019-10-13 Telephone [place], [facility] [id number] Univers 00:00:00 00:00:00 [facility] [id number] it y of [place] [id number] Jesus as Professio [phone] Nm [address] Office Building One 2019-10-12 2019-10-12 Urgent Pob1, Acute [facility] [id number] 13:59:30 14:19:30 Care [facility] [id number] [place] [id number] Professio [phone] [place] [address] [address] 2019-10-12 2019-10-12 Urgent Pob1, Acute Care Clinic [place] 1. [id number] Univers 13:59:30 14:19:[address] [facility] [id number] ity of [place] [id number] Jesus as Professio [phone] Nm dic[address] Office Building One 2019-10-12 2019-10-12 Outpatient R [facility] [id number] Univers 14:00:00 14:00:00 ity of [facility] 2019-09-30 2019-09-30 Outpatient [facility] [id number] Common 10:00:00 10:00:00 t Bone Bone and Spiri t and Joint Joint - [facility] 2019-07-29 2019-07-29 Outpatient [facility] [id number] Common 08:00:00 08:00:00 t Bone Bone and Spiri t and Joint Joint - [facility] Results Test Description Test Time Test Comments Results Result Comments Source [facility] 2023-01-29 15:08:31 Test Item Value Reference Range Interpretation Comme nts [facility] left side (test code See_Comment [Automated message] The system which = 99107-7B) generated this result transmitted reference range : 1.40 - 0.90 NA. The reference range was not used to interpret this result as normal/abnormal . [facility] right side (test code See_Comment Exercise Modality: At RestNormal - = 64803-0G) 1.40 - 1.00Bord bri - 0.99 - 0.90Mild - 0.89 - 0.60Moderate - 0.59 - 0.30Severe - 0.29 - 0.00 [Automated message] The sy stem which generated this result tra nsmitted reference range: 1.40 - 0 .90 NA. The reference range was not u sed to interpret this result as felicitas l/abnormal. Lalita [facility]P1179-24-94 12:52:00 Test Item Value Reference Range Interpretation Comments Coronavirus (COVID-19) Not Detected (08/15/21 JAVED (test code = 6:52 AM) Coronavirus (COVID-19) JAVED) [facility]5725-35-70 12:52:00 Test Item Value Reference Range Interpretation Comments Coronavirus (COVID-19) Not Detected (08/15/21 JAVED (test code = 6:52 AM) Coronavirus (COVID-19) JAVED) [facility]wzdqihTHIWXXNLGD9762-04-55 12:52:00 Test Item Value Reference Range Interpretation Comments Coronavirus (COVID-19) Not Detected (08/15/21 JAVED (test code = 6:52 AM) Coronavirus (COVID-19) JAVED) [facility]lakeSspklbrOKBQOJABSE5978-25-43 12:52:00 Test Item Value Reference Range Interpretation Comments Coronavirus (COVID-19) Not Detected (08/15/21 JAVED (test code = 6:52 AM) Coronavirus (COVID-19) JAVED) [facility]lakeKxxepohCTUVEBWYWQ2194-28-71 12:52:00 Test Item Value Reference Range Interpretation Comments Coronavirus (COVID-19) Not Detected (08/15/21 JAVED (test code = 6:52 AM) Coronavirus (COVID-19) JAVED) [place] 196622-02-22 12:52:00 Test Item Value Reference Range Interpretation Comments Coronavirus (COVID-19) Not Detected (08/15/21 JAVED (test code = 6:52 AM) Coronavirus (COVID-19) JAVED) [facility]LE[facility]NRMV5636-00-91 12:52:00 Test Item Value Reference Range Interpretation Comments Coronavirus (COVID-19) Not Detected (08/15/21 JAVED (test code = 6:52 AM) Coronavirus (COVID-19) JAVED) [facility]lakeHzmwfbgFYJZYREJTC8216-46-40 12:52:00 Test Item Value Reference Range Interpretation Comments Coronavirus (COVID-19) Not Detected (08/15/21 JAVED (test code = 6:52 AM) Coronavirus (COVID-19) JAVED) [place] 196622-02-22 12:52:00 Test Item Value Reference Range Interpretation Comments Coronavirus (COVID-19) Not Detected (08/15/21 JAVED (test code = 6:52 AM) Coronavirus (COVID-19) JAVED) [place] 196622-02-22 12:52:00 Test Item Value Reference Range Interpretation Comments Coronavirus (COVID-19) Not Detected (08/15/21 JAVED (test code = 6:52 AM) Coronavirus (COVID-19) JAVED) [place] [address]-02-22 12:52:00 Test Item Value Reference Range Interpretation Comments Coronavirus (COVID-19) Not Detected (08/15/21 JAVED (test code = 6:52 AM) Coronavirus (COVID-19) JAVED) [place] 196622-02-22 12:52:00 Test Item Value Reference Range Interpretation Comments Coronavirus (COVID-19) Not Detected (08/15/21 JAVED (test code = 6:52 AM) Coronavirus (COVID-19) JAVED) [facility]lakeBndsnzvBSSCCSEODU2577-49-40 12:52:00 Test Item Value Reference Range Interpretation Comments Coronavirus (COVID-19) Not Detected (08/15/21 JAVED (test code = 6:52 AM) Coronavirus (COVID-19) JAVED) [place] [address]-02-22 12:52:00 Test Item Value Reference Range Interpretation Comments Coronavirus (COVID-19) Not Detected (08/15/21 JAVED (test code = 6:52 AM) Coronavirus (COVID-19) JAVED) [place] [address]-02-22 12:52:00 Test Item Value Reference Range Interpretation Comments Coronavirus (COVID-19) Not Detected (08/15/21 JAVED (test code = 6:52 AM) Coronavirus (COVID-19) JAVED) [facility]lakeHtsmgedTXKLYEWNHE3006-92-07 12:52:00 Test Item Value Reference Range Interpretation Comments Coronavirus (COVID-19) Not Detected (08/15/21 JAVED (test code = 6:52 AM) Coronavirus (COVID-19) JAVED) [place] 196622-02-22 12:52:00 Test Item Value Reference Range Interpretation Comments Coronavirus (COVID-19) Not Detected (08/15/21 JAVED (test code = 6:52 AM) Coronavirus (COVID-19) JAVED) [facility]lakeFalyirgAJXQIRXMGK3508-64-94 12:52:00 Test Item Value Reference Range Interpretation Comments Coronavirus (COVID-19) Not Detected (08/15/21 JAVED (test code = 6:52 AM) Coronavirus (COVID-19) JAVED) [place] 196622-02-22 12:52:00 Test Item Value Reference Range Interpretation Comments Coronavirus (COVID-19) Not Detected (08/15/21 JAVED (test code = 6:52 AM) Coronavirus (COVID-19) JAVED) [facility]lakeVjckzcoVYTHODBREP3237-23-35 12:52:00 Test Item Value Reference Range Interpretation Comments Coronavirus (COVID-19) Not Detected (08/15/21 JAVED (test code = 6:52 AM) Coronavirus (COVID-19) JAVED) [facility]lakeMsxsidyASDYRATVXT8307-41-25 12:52:00 Test Item Value Reference Range Interpretation Comments Coronavirus (COVID-19) Not Detected (08/15/21 JAVED (test code = 6:52 AM) Coronavirus (COVID-19) JAVED) [facility]lakeCmtmhugMKVDIMFBWW5261-75-96 12:52:00 Test Item Value Reference Range Interpretation Comments Coronavirus (COVID-19) Not Detected (08/15/21 JAVED (test code = 6:52 AM) Coronavirus (COVID-19) JAVED) [place] 196622-02-22 12:52:00 Test Item Value Reference Range Interpretation Comments Coronavirus (COVID-19) Not Detected (08/15/21 JAVED (test code = 6:52 AM) Coronavirus (COVID-19) JAVED) [place] 196622-02-22 12:52:00 Test Item Value Reference Range Interpretation Comments Coronavirus (COVID-19) Not Detected (08/15/21 JAVED (test code = 6:52 AM) Coronavirus (COVID-19) JAVED) [facility]lakeNrqisekTVCKUOBOCZ2920-78-52 12:52:00 Test Item Value Reference Range Interpretation Comments Coronavirus (COVID-19) Not Detected (08/15/21 JAVED (test code = 6:52 AM) Coronavirus (COVID-19) JAVED) [facility]lakeQovsheaCMPRNOCBPG6348-02-08 12:52:00 Test Item Value Reference Range Interpretation Comments Coronavirus (COVID-19) Not Detected (08/15/21 JAVED (test code = 6:52 AM) Coronavirus (COVID-19) JAVED) [facility]lakeEcvqmvmAZJJGMBCVV5764-32-49 12:52:00 Test Item Value Reference Range Interpretation Comments Coronavirus (COVID-19) Not Detected (08/15/21 JAVED (test code = 6:52 AM) Coronavirus (COVID-19) JAVED) [facility]lakeZzteqkqTDBQAHVJZK2578-55-84 12:52:00 Test Item Value Reference Range Interpretation Comments Coronavirus (COVID-19) Not Detected (08/15/21 JAVED (test code = 6:52 AM) Coronavirus (COVID-19) JAVED) [facility]lakeOtevuivNAGIOFWXUY2489-86-60 12:52:00 Test Item Value Reference Range Interpretation Comments Coronavirus (COVID-19) Not Detected (08/15/21 JAVED (test code = 6:52 AM) Coronavirus (COVID-19) JAVED) [facility]lakeDgqrwagFEDWLJYTOK8117-42-45 12:52:00 Test Item Value Reference Range Interpretation Comments Coronavirus (COVID-19) Not Detected (08/15/21 JAVED (test code = 6:52 AM) Coronavirus (COVID-19) JAVED) [facility] SouthlakeCahmngeNSNENURMDW1000-82-51 12:52:00 Test Item Value Reference Range Interpretation Comments Coronavirus (COVID-19) Not Detected (08/15/21 JAVED (test code = 6:52 AM) Coronavirus (COVID-19) JAVED) [facility]lakeEphunuyXALTPQXMXC0268-26-48 12:52:00 Test Item Value Reference Range Interpretation Comments Coronavirus (COVID-19) Not Detected (08/15/21 JAVED (test code = 6:52 AM) Coronavirus (COVID-19) JAVED) [facility]lakeBeqhwwcQFMJIGFZYO6371-29-95 12:52:00 Test Item Value Reference Range Interpretation Comments Coronavirus (COVID-19) Not Detected (08/15/21 JAVED (test code = 6:52 AM) Coronavirus (COVID-19) JAVED) [place] 196622-02-22 12:52:00 Test Item Value Reference Range Interpretation Comments Coronavirus (COVID-19) Not Detected (08/15/21 JAVED (test code = 6:52 AM) Coronavirus (COVID-19) JAVED) [place] 196622-02-22 12:52:00 Test Item Value Reference Range Interpretation Comments Coronavirus (COVID-19) Not Detected (08/15/21 JAVED (test code = 6:52 AM) Coronavirus (COVID-19) JAVED) [place] 196622-02-22 12:52:00 Test Item Value Reference Range Interpretation Comments Coronavirus (COVID-19) Not Detected (08/15/21 JAVED (test code = 6:52 AM) Coronavirus (COVID-19) JAVED) [facility]lakeBnkiggcJFKYXQBHVK4293-51-89 12:52:00 Test Item Value Reference Range Interpretation Comments Coronavirus (COVID-19) Not Detected (08/15/21 JAVED (test code = 6:52 AM) Coronavirus (COVID-19) JAVED) [facility]lakeLkvniscVRHIYMPVRZ0985-06-27 12:52:00 Test Item Value Reference Range Interpretation Comments Coronavirus (COVID-19) Not Detected (08/15/21 JAVED (test code = 6:52 AM) Coronavirus (COVID-19) JAVED) [facility]lakeRafymsiXIKSQMANMU6742-69-50 12:52:00 Test Item Value Reference Range Interpretation Comments Coronavirus (COVID-19) Not Detected (08/15/21 JAVED (test code = 6:52 AM) Coronavirus (COVID-19) JAVED) [place] 196622-02-22 12:52:00 Test Item Value Reference Range Interpretation Comments Coronavirus (COVID-19) Not Detected (08/15/21 JAVED (test code = 6:52 AM) Coronavirus (COVID-19) JAVED) [facility]2021-12-01 17:33:00 Test Item Value Reference Range Interpretation Comments POC Creatinine (test code = POC 0.6 0.5-1.4 Creatinine) [place] 853501-12-01 17:33:00 Test Item Value Reference Range Interpretation Comments eGFR (test code = eGFR) 94 [place] [address]-12-01 17:33:00 Test Item Value Reference Range Interpretation Comments POC Creatinine (test code = POC 0.6 0.5-1.4 Creatinine) [address]12-01 17:33:00 Test Item Value Reference Range Interpretation Comments eGFR (test code = eGFR) [address]12[address]01 17:33:00 Test Item Value Reference Range Interpretation Comments POC Creatinine (test code = POC 0.6 0.5-1.4 Creatinine) [address]12-01 17:33:00 Test Item Value Reference Range Interpretation Comments eGFR (test code = eGFR) [address]-01 17:33:00 Test Item Value Reference Range Interpretation Comments POC Creatinine (test code = POC 0.6 0.5-1.4 Creatinine) [place] 853501-12-01 17:33:00 Test Item Value Reference Range Interpretation Comments eGFR (test code = eGFR) 94 [place] [address]-12-01 17:33:00 Test Item Value Reference Range Interpretation Comments POC Creatinine (test code = POC 0.6 0.5-1.4 Creatinine) [place] 853501-12-01 17:33:00 Test Item Value Reference Range Interpretation Comments eGFR (test code = eGFR) 94 [place] [address]-12-01 17:33:00 Test Item Value Reference Range Interpretation Comments POC Creatinine (test code = POC 0.6 0.5-1.4 Creatinine) [place] 853501-12-01 17:33:00 Test Item Value Reference Range Interpretation Comments eGFR (test code = eGFR) 94 [place] [address]-12-01 17:33:00 Test Item Value Reference Range Interpretation Comments POC Creatinine (test code = POC 0.6 0.5-1.4 Creatinine) [place] 853501-12-01 17:33:00 Test Item Value Reference Range Interpretation Comments eGFR (test code = eGFR) 94 [place] [address]-12-01 17:33:00 Test Item Value Reference Range Interpretation Comments POC Creatinine (test code = POC 0.6 0.5-1.4 Creatinine) [address]12-01 17:33:00 Test Item Value Reference Range Interpretation Comments eGFR (test code = eGFR) [address]01 17:33:00 Test Item Value Reference Range Interpretation Comments POC Creatinine (test code = POC 0.6 0.5-1.4 Creatinine) [address]12[address]01 17:33:00 Test Item Value Reference Range Interpretation Comments eGFR (test code = eGFR) [address]01 17:33:00 Test Item Value Reference Range Interpretation Comments POC Creatinine (test code = POC 0.6 0.5-1.4 Creatinine) [place] 853501-12-01 17:33:00 Test Item Value Reference Range Interpretation Comments eGFR (test code = eGFR) [address]01 17:33:00 Test Item Value Reference Range Interpretation Comments POC Creatinine (test code = POC 0.6 0.5-1.4 Creatinine) [address]12-01 17:33:00 Test Item Value Reference Range Interpretation Comments eGFR (test code = eGFR) [address]01 17:33:00 Test Item Value Reference Range Interpretation Comments POC Creatinine (test code = POC 0.6 0.5-1.4 Creatinine) [place] [address]3501-12-01 17:33:00 Test Item Value Reference Range Interpretation Comments eGFR (test code = eGFR) [address]01 17:33:00 Test Item Value Reference Range Interpretation Comments POC Creatinine (test code = POC 0.6 0.5-1.4 Creatinine) [address]12[address]01 17:33:00 Test Item Value Reference Range Interpretation Comments eGFR (test code = eGFR) 94 [place] [address]-12-01 17:33:00 Test Item Value Reference Range Interpretation Comments POC Creatinine (test code = POC 0.6 0.5-1.4 Creatinine) [place] 853501-12-01 17:33:00 Test Item Value Reference Range Interpretation Comments eGFR (test code = eGFR) 94 [place] 853501-12-01 17:33:00 Test Item Value Reference Range Interpretation Comments POC Creatinine (test code = POC 0.6 0.5-1.4 Creatinine) [place] [address]35[address]-12-01 17:33:00 Test Item Value Reference Range Interpretation Comments eGFR (test code = eGFR) 94 [place] [address]-12-01 17:33:00 Test Item Value Reference Range Interpretation Comments POC Creatinine (test code = POC 0.6 0.5-1.4 Creatinine) [place] [address]35[address]-12-01 17:33:00 Test Item Value Reference Range Interpretation Comments eGFR (test code = eGFR) 94 [place] [address]-12-01 17:33:00 Test Item Value Reference Range Interpretation Comments POC Creatinine (test code = POC 0.6 0.5-1.4 Creatinine) [place] [address]35[address]-12-01 17:33:00 Test Item Value Reference Range Interpretation Comments eGFR (test code = eGFR) 94 [place] [address]-12-01 17:33:00 Test Item Value Reference Range Interpretation Comments POC Creatinine (test code = POC 0.6 0.5-1.4 Creatinine) [place] [address]35[address]-12-01 17:33:00 Test Item Value Reference Range Interpretation Comments eGFR (test code = eGFR) 94 [place] 853501-12-01 17:33:00 Test Item Value Reference Range Interpretation Comments POC Creatinine (test code = POC 0.6 0.5-1.4 Creatinine) [place] [address]35[address]-12-01 17:33:00 Test Item Value Reference Range Interpretation Comments eGFR (test code = eGFR) 94 [place] [address]-12-01 17:33:00 Test Item Value Reference Range Interpretation Comments POC Creatinine (test code = POC 0.6 0.5-1.4 Creatinine) [place] 853501-12-01 17:33:00 Test Item Value Reference Range Interpretation Comments eGFR (test code = eGFR) 94 [place] [address]-12-01 17:33:00 Test Item Value Reference Range Interpretation Comments POC Creatinine (test code = POC 0.6 0.5-1.4 Creatinine) [place] [address]35[address]-12-01 17:33:00 Test Item Value Reference Range Interpretation Comments eGFR (test code = eGFR) 94 [place] 853501-12-01 17:33:00 Test Item Value Reference Range Interpretation Comments POC Creatinine (test code = POC 0.6 0.5-1.4 Creatinine) [place] [address]-12-01 17:33:00 Test Item Value Reference Range Interpretation Comments eGFR (test code = eGFR) 94 [place] [address]3501-12-01 17:33:00 Test Item Value Reference Range Interpretation Comments POC Creatinine (test code = POC 0.6 0.5-1.4 Creatinine) [place] [address]-12-01 17:33:00 Test Item Value Reference Range Interpretation Comments eGFR (test code = eGFR) [address]01 17:33:00 Test Item Value Reference Range Interpretation Comments POC Creatinine (test code = POC 0.6 0.5-1.4 Creatinine) [place] [address]35[address]-12-01 17:33:00 Test Item Value Reference Range Interpretation Comments eGFR (test code = eGFR) 94 [place] [address]35[address]-12-01 17:33:00 Test Item Value Reference Range Interpretation Comments POC Creatinine (test code = POC 0.6 0.5-1.4 Creatinine) [place] [address]-12-01 17:33:00 Test Item Value Reference Range Interpretation Comments eGFR (test code = eGFR) 94 [place] [address]-12-01 17:33:00 Test Item Value Reference Range Interpretation Comments POC Creatinine (test code = POC 0.6 0.5-1.4 Creatinine) [place] [address]35[address]-12-01 17:33:00 Test Item Value Reference Range Interpretation Comments eGFR (test code = eGFR) [address]01 17:33:00 Test Item Value Reference Range Interpretation Comments POC Creatinine (test code = POC 0.6 0.5-1.4 Creatinine) [place] [address]-12-01 17:33:00 Test Item Value Reference Range Interpretation Comments eGFR (test code = eGFR) 94 [place] [address]-12-01 17:33:00 Test Item Value Reference Range Interpretation Comments POC Creatinine (test code = POC 0.6 0.5-1.4 Creatinine) [address]12[address]01 17:33:00 Test Item Value Reference Range Interpretation Comments eGFR (test code = eGFR) [address]01 17:33:00 Test Item Value Reference Range Interpretation Comments POC Creatinine (test code = POC 0.6 0.5-1.4 Creatinine) [place] [address]-12-01 17:33:00 Test Item Value Reference Range Interpretation Comments eGFR (test code = eGFR) [address]01 17:33:00 Test Item Value Reference Range Interpretation Comments POC Creatinine (test code = POC 0.6 0.5-1.4 Creatinine) [place] [address]-12-01 17:33:00 Test Item Value Reference Range Interpretation Comments eGFR (test code = eGFR) [address]01 17:33:00 Test Item Value Reference Range Interpretation Comments POC Creatinine (test code = POC 0.6 0.5-1.4 Creatinine) [address]12-01 17:33:00 Test Item Value Reference Range Interpretation Comments eGFR (test code = eGFR) 94 [place] [address]-12-01 17:33:00 Test Item Value Reference Range Interpretation Comments POC Creatinine (test code = POC 0.6 0.5-1.4 Creatinine) [address]12[address]01 17:33:00 Test Item Value Reference Range Interpretation Comments eGFR (test code = eGFR) [address]01 17:33:00 Test Item Value Reference Range Interpretation Comments POC Creatinine (test code = POC 0.6 0.5-1.4 Creatinine) [place] [address]-12-01 17:33:00 Test Item Value Reference Range Interpretation Comments eGFR (test code = eGFR) [address]01 17:33:00 Test Item Value Reference Range Interpretation Comments POC Creatinine (test code = POC 0.6 0.5-1.4 Creatinine) [place] [address]-12-01 17:33:00 Test Item Value Reference Range Interpretation Comments eGFR (test code = eGFR) 94 [place] [address]-12-01 17:33:00 Test Item Value Reference Range Interpretation Comments POC Creatinine (test code = POC 0.6 0.5-1.4 Creatinine) [place] [address]-12-01 17:33:00 Test Item Value Reference Range Interpretation Comments eGFR (test code = eGFR) 94 [place] [address]-12-01 17:33:00 Test Item Value Reference Range Interpretation Comments POC Creatinine (test code = POC 0.6 0.5-1.4 Creatinine) [place] [address]-12-01 17:33:00 Test Item Value Reference Range Interpretation Comments eGFR (test code = eGFR) 94 [place] [address]3501-12-01 17:33:00 Test Item Value Reference Range Interpretation Comments POC Creatinine (test code = POC 0.6 0.5-1.4 Creatinine) [place] [address]-12-01 17:33:00 Test Item Value Reference Range Interpretation Comments eGFR (test code = eGFR) 94 [place] [address]-12-01 17:33:00 Test Item Value Reference Range Interpretation Comments POC Creatinine (test code = POC 0.6 0.5-1.4 Creatinine) [place] [address]-12-01 17:33:00 Test Item Value Reference Range Interpretation Comments eGFR (test code = eGFR) [address]01 17:33:00 Test Item Value Reference Range Interpretation Comments POC Creatinine (test code = POC 0.6 0.5-1.4 Creatinine) [place] [address]35[address]-12-01 17:33:00 Test Item Value Reference Range Interpretation Comments eGFR (test code = eGFR) 94 [place] [address]-12-01 17:33:00 Test Item Value Reference Range Interpretation Comments POC Creatinine (test code = POC 0.6 0.5-1.4 Creatinine) [place] [address]35[address]-12-01 17:33:00 Test Item Value Reference Range Interpretation Comments eGFR (test code = eGFR) 94 [place] 196621-11-08 16:13:00 Test Item Value Reference Range Interpretation Comments Coronavirus (COVID-19) Not Detected JAVED (test code = *NA*(05/01/21 10:13 Coronavirus (COVID-19) AM) JAVED) [facility] 16:13:00 Test Item Value Reference Range Interpretation Comments Coronavirus (COVID-19) Not Detected JAVED (test code = *NA*(05/01/21 10:13 Coronavirus (COVID-19) AM) JAVED) [facility]lakeCwlhwevGWLJNBAVTD0907-87-65 16:13:00 Test Item Value Reference Range Interpretation Comments Coronavirus (COVID-19) Not Detected JAVED (test code = *NA*(05/01/21 10:13 Coronavirus (COVID-19) AM) JAVED) [place] [address]-11-08 16:13:00 Test Item Value Reference Range Interpretation Comments Coronavirus (COVID-19) Not Detected JAVED (test code = *NA*(05/01/21 10:13 Coronavirus (COVID-19) AM) JAVED) [place] [address]-11-08 16:13:00 Test Item Value Reference Range Interpretation Comments Coronavirus (COVID-19) Not Detected JAVED (test code = *NA*(05/01/21 10:13 Coronavirus (COVID-19) AM) JAVED) [place] [address]-11-08 16:13:00 Test Item Value Reference Range Interpretation Comments Coronavirus (COVID-19) Not Detected JAVED (test code = *NA*(05/01/21 10:13 Coronavirus (COVID-19) AM) JAVED) [facility]lakeOquokyyIMOKOSSGOH0113-79-27 16:13:00 Test Item Value Reference Range Interpretation Comments Coronavirus (COVID-19) Not Detected JAVED (test code = *NA*(05/01/21 10:13 Coronavirus (COVID-19) AM) JAVED) [facility]lakeWbinaseBFTTNRWHRD7911-79-75 16:13:00 Test Item Value Reference Range Interpretation Comments Coronavirus (COVID-19) Not Detected JAVED (test code = *NA*(05/01/21 10:13 Coronavirus (COVID-19) AM) JAVED) [facility]lakeDivulbqTKVXXNEYVI8943-82-94 16:13:00 Test Item Value Reference Range Interpretation Comments Coronavirus (COVID-19) Not Detected JAVED (test code = *NA*(05/01/21 10:13 Coronavirus (COVID-19) AM) JAVED) [facility]lakeEikiukeLARUSGTPXI3143-26-72 16:13:00 Test Item Value Reference Range Interpretation Comments Coronavirus (COVID-19) Not Detected JAVED (test code = *NA*(05/01/21 10:13 Coronavirus (COVID-19) AM) JAVED) [facility]lakeDlidotlOHZSZUDIKQ9982-39-39 16:13:00 Test Item Value Reference Range Interpretation Comments Coronavirus (COVID-19) Not Detected JAVED (test code = *NA*(05/01/21 10:13 Coronavirus (COVID-19) AM) JAVED) [facility]lakeYllocyxERJSVCFIIA2590-29-30 16:13:00 Test Item Value Reference Range Interpretation Comments Coronavirus (COVID-19) Not Detected JAVED (test code = *NA*(05/01/21 10:13 Coronavirus (COVID-19) AM) JAVED) [facility]lakeOxqchbsODAYENNEAB3543-45-51 16:13:00 Test Item Value Reference Range Interpretation Comments Coronavirus (COVID-19) Not Detected JAVED (test code = *NA*(05/01/21 10:13 Coronavirus (COVID-19) AM) JAVED) [place] 196621-11-08 16:13:00 Test Item Value Reference Range Interpretation Comments Coronavirus (COVID-19) Not Detected JAVED (test code = *NA*(05/01/21 10:13 Coronavirus (COVID-19) AM) JAVED) [facility]lakeBznuccaZCYQHSNVDH7681-22-38 16:13:00 Test Item Value Reference Range Interpretation Comments Coronavirus (COVID-19) Not Detected JAVED (test code = *NA*(05/01/21 10:13 Coronavirus (COVID-19) AM) JAVED) [facility]lakeXgbrbbnNEHDNSFZBH9414-51-39 16:13:00 Test Item Value Reference Range Interpretation Comments Coronavirus (COVID-19) Not Detected JAVED (test code = *NA*(05/01/21 10:13 Coronavirus (COVID-19) AM) JAVED) [facility]lakeNgsbuhgGJENIDOUFJ8559-42-31 16:13:00 Test Item Value Reference Range Interpretation Comments Coronavirus (COVID-19) Not Detected JAVED (test code = *NA*(05/01/21 10:13 Coronavirus (COVID-19) AM) JAVED) [facility]lakeTnhihxoDXJMPVWKLG9919-90-76 16:13:00 Test Item Value Reference Range Interpretation Comments Coronavirus (COVID-19) Not Detected JAVED (test code = *NA*(05/01/21 10:13 Coronavirus (COVID-19) AM) JAVED) [facility]lakeIdvxqkxNMZTYLOEJC0413-86-32 16:13:00 Test Item Value Reference Range Interpretation Comments Coronavirus (COVID-19) Not Detected JAVED (test code = *NA*(05/01/21 10:13 Coronavirus (COVID-19) AM) JAVED) [facility]lakeQsyzczqAIXWGOEDJZ7675-89-96 16:13:00 Test Item Value Reference Range Interpretation Comments Coronavirus (COVID-19) Not Detected JAVED (test code = *NA*(05/01/21 10:13 Coronavirus (COVID-19) AM) JAVED) [place] [address]-11-08 16:13:00 Test Item Value Reference Range Interpretation Comments Coronavirus (COVID-19) Not Detected JAVED (test code = *NA*(05/01/21 10:13 Coronavirus (COVID-19) AM) JAVED) [place] [address]-11-08 16:13:00 Test Item Value Reference Range Interpretation Comments Coronavirus (COVID-19) Not Detected JAVED (test code = *NA*(05/01/21 10:13 Coronavirus (COVID-19) AM) JAVED) [facility]lakeVifvzqkCDSEUXGTWD3020-83-87 16:13:00 Test Item Value Reference Range Interpretation Comments Coronavirus (COVID-19) Not Detected JAVED (test code = *NA*(05/01/21 10:13 Coronavirus (COVID-19) AM) JAVED) [facility]lakeBlpbpgkWYKAZHEMWI4640-21-50 16:13:00 Test Item Value Reference Range Interpretation Comments Coronavirus (COVID-19) Not Detected JAVED (test code = *NA*(05/01/21 10:13 Coronavirus (COVID-19) AM) JAVED) [facility]lakeSylelgbQBFSYSYBWV7340-67-97 16:13:00 Test Item Value Reference Range Interpretation Comments Coronavirus (COVID-19) Not Detected JAVED (test code = *NA*(05/01/21 10:13 Coronavirus (COVID-19) AM) JAVED) [facility]lakeTujfnlwPWYVCVHYIS8106-21-20 16:13:00 Test Item Value Reference Range Interpretation Comments Coronavirus (COVID-19) Not Detected JAVED (test code = *NA*(05/01/21 10:13 Coronavirus (COVID-19) AM) JAVED) [facility]lakeBlglfqjCGAQFUQNRP8080-33-93 16:13:00 Test Item Value Reference Range Interpretation Comments Coronavirus (COVID-19) Not Detected JAVED (test code = *NA*(05/01/21 10:13 Coronavirus (COVID-19) AM) JAVED) [facility]lakeZddeemxOBWLGCIZWW2741-76-94 16:13:00 Test Item Value Reference Range Interpretation Comments Coronavirus (COVID-19) Not Detected JAVED (test code = *NA*(05/01/21 10:13 Coronavirus (COVID-19) AM) JAVED) [place] [address]-11-08 16:13:00 Test Item Value Reference Range Interpretation Comments Coronavirus (COVID-19) Not Detected JAVED (test code = *NA*(05/01/21 10:13 Coronavirus (COVID-19) AM) JAVED) [facility]lakeXjqwblhJWVWHEPYMI4431-62-46 16:13:00 Test Item Value Reference Range Interpretation Comments Coronavirus (COVID-19) Not Detected JAVED (test code = *NA*(05/01/21 10:13 Coronavirus (COVID-19) AM) JAVED) [facility]lakeEuegualXIYAYREOCR4424-76-42 16:13:00 Test Item Value Reference Range Interpretation Comments Coronavirus (COVID-19) Not Detected JAVED (test code = *NA*(05/01/21 10:13 Coronavirus (COVID-19) AM) JAVED) [facility]lakeVejmhoxFMMVSVKXBF2621-67-99 16:13:00 Test Item Value Reference Range Interpretation Comments Coronavirus (COVID-19) Not Detected JAVED (test code = *NA*(05/01/21 10:13 Coronavirus (COVID-19) AM) JAVED) [facility]lakeZrpzzxeYSWBTTIOOY5998-97-17 16:13:00 Test Item Value Reference Range Interpretation Comments Coronavirus (COVID-19) Not Detected JAVED (test code = *NA*(05/01/21 10:13 Coronavirus (COVID-19) AM) JAVED) [facility]lakePhcqglqGGTMTMHPBR1801-32-60 16:13:00 Test Item Value Reference Range Interpretation Comments Coronavirus (COVID-19) Not Detected JAVED (test code = *NA*(05/01/21 10:13 Coronavirus (COVID-19) AM) JAVED) [facility]lakeSpwwfyvOSOJYKEQSY3908-13-43 16:13:00 Test Item Value Reference Range Interpretation Comments Coronavirus (COVID-19) Not Detected JAVED (test code = *NA*(05/01/21 10:13 Coronavirus (COVID-19) AM) JAVED) [facility]lakeEdnigwtHTTBLZNNOH0864-25-85 16:13:00 Test Item Value Reference Range Interpretation Comments Coronavirus (COVID-19) Not Detected JAVED (test code = *NA*(05/01/21 10:13 Coronavirus (COVID-19) AM) JAVED) [place] [address]-11-08 16:13:00 Test Item Value Reference Range Interpretation Comments Coronavirus (COVID-19) Not Detected JAVED (test code = *NA*(05/01/21 10:13 Coronavirus (COVID-19) AM) JAVED) [facility]lakeRzeyjogWFSDHPCZSH0114-34-85 16:13:00 Test Item Value Reference Range Interpretation Comments Coronavirus (COVID-19) Not Detected JAVED (test code = *NA*(05/01/21 10:13 Coronavirus (COVID-19) AM) JAVED) [facility]lakeXxpigqdIXGWNXVJIH6561-44-46 16:13:00 Test Item Value Reference Range Interpretation Comments Coronavirus (COVID-19) Not Detected JAVED (test code = *NA*(05/01/21 10:13 Coronavirus (COVID-19) AM) JAVED) [facility]lakeWshnfjaHIZPNLBYVG9675-53-78 16:13:00 Test Item Value Reference Range Interpretation Comments Coronavirus (COVID-19) Not Detected JAVED (test code = *NA*(05/01/21 10:13 Coronavirus (COVID-19) AM) JAVED) [facility]2021-11-03 14:59:00 Test Item Value Reference Range Interpretation Comments Glucose Lvl (test code = Glucose Lvl) 101 65-99 [facility]2021-11-03 14:59:00 Test Item Value Reference Range Interpretation Comments BUN (test code = BUN) 9 7-25 [facility]2021-11-03 14:59:00 Test Item Value Reference Range Interpretation Comments Creatinine Lvl (test code = Creatinine 0.72 0.50-0.99 Lvl) [place] [address]3501-11-03 14:59:00 Test Item Value Reference Range Interpretation Comments eGFR NON-AFR. ARMENIAN (test code = 86 eGFR NON-AFR. ARMENIAN) [place] [address]3501-11-03 14:59:00 Test Item Value Reference Range Interpretation Comments eGFR (test code = eGFR 100 ) [place]3501-11-03 14:59:00 Test Item Value Reference Range Interpretation Comments B/C Ratio (test code = B/C NOT APPLICABLE 6-22 Ratio) [place] 853501-11-03 14:59:00 Test Item Value Reference Range Interpretation Comments Sodium Lvl (test code = Sodium Lvl) 139 135-146 [place] 853501-11-03 14:59:00 Test Item Value Reference Range Interpretation Comments Potassium Lvl (test code = Potassium 4.2 3.5-5.3 Lvl) [place] [address]3501-11-03 14:59:00 Test Item Value Reference Range Interpretation Comments Chloride Lvl (test code = Chloride Lvl) 108 98-110 [place]3501-11-03 14:59:00 Test Item Value Reference Range Interpretation Comments CO2 (test code = CO2) 23 20-32 [place]3501-11-03 14:59:00 Test Item Value Reference Range Interpretation Comments Calcium Lvl (test code = Calcium Lvl) 9.6 8.6-10.4 [place] 139731-11-03 14:59:00 Test Item Value Reference Range Interpretation Comments WBC X 10x3 (test code = WBC X 10x3) 9.1 3.8-10.8 [place] 139731-11-03 14:59:00 Test Item Value Reference Range Interpretation Comments RBC X 10x6 (test code = RBC X 10x6) 3.70 3.80-5.10 [place] [address]-11-03 14:59:00 Test Item Value Reference Range Interpretation Comments Hgb (test code = Hgb) 10.2 11.7-15.5 [place] [address]-11-03 14:59:00 Test Item Value Reference Range Interpretation Comments Hct (test code = Hct) 33.2 35.0-45.0 [place] [address]-11-03 14:59:00 Test Item Value Reference Range Interpretation Comments MCV (test code = MCV) 89.7 80.0-100.0 [place] 139731-11-03 14:59:00 Test Item Value Reference Range Interpretation Comments MCH (test code = MCH) 27.6 pg 27.0-33.0 [place] 139731-11-03 14:59:00 Test Item Value Reference Range Interpretation Comments MCHC (test code = MCHC) 30.7 32.0-36.0 [place] 139731-11-03 14:59:00 Test Item Value Reference Range Interpretation Comments RDW (test code = RDW) 15.0 11.0-15.0 [place] 139731-11-03 14:59:00 Test Item Value Reference Range Interpretation Comments Platelet (test code = Platelet) 727 140-400 [facility]NohylqeMIOGTPJAWG8830-27-91 14:59:00 Test Item Value Reference Range Interpretation Comments MPV (test code = MPV) 11.0 7.5-12.5 [place] 139731-11-03 14:59:00 Test Item Value Reference Range Interpretation Comments Neutrophils # (test code = Neutrophils 6743 3989-2877 #) [facility] CentralEqcbsszPRGMBAUOSK1324-91-53 14:59:00 Test Item Value Reference Range Interpretation Comments Lymphocytes # (test code = Lymphocytes 3083 802-3368 #) [facility] CentralZyyjyscJCGWNNHJRU2523-27-27 14:59:00 Test Item Value Reference Range Interpretation Comments Monocytes # (test code = Monocytes #) 619 200-950 [facility] CentralZlanzuuAUAQPAWWXN9325-47-14 14:59:00 Test Item Value Reference Range Interpretation Comments Eosinophils # (test code = Eosinophils 164 15-500 #) [place] 139731-11-03 14:59:00 Test Item Value Reference Range Interpretation Comments Basophils # (test code 82 See_Comment [Aut omated message] The = Basophils #) system which generated this result tra nsmitted reference range : <=200. The reference r arelis was not used to int erpret this result as normal/abnormal . [facility] CentralGbvzziqYFMNMRPELR6575-32-59 14:59:00 Test Item Value Reference Range Interpretation Comments Segs (test code = Segs) 74.1 [place] 139731-11-03 14:59:00 Test Item Value Reference Range Interpretation Comments Lymphocytes (test code = Lymphocytes) 16.4 [place] 139731-11-03 14:59:00 Test Item Value Reference Range Interpretation Comments Monocytes (test code = Monocytes) 6.8 [facility] CentralOcgujqeVXSQGKMDEL1865-33-00 14:59:00 Test Item Value Reference Range Interpretation Comments Eosinophils (test code = Eosinophils) 1.8 [place] 139731-11-03 14:59:00 Test Item Value Reference Range Interpretation Comments Basophils (test code = Basophils) 0.9 [facility] LAB [id number] 14:59:00 Test Item Value Reference Range Interpretation Comments Result 2 (Urine Culture) See Result Comment (test code = Result 2 (Urine Culture)) [facility]2021-11-03 14:59:00 Test Item Value Reference Range Interpretation Comments Glucose Lvl (test code = Glucose Lvl) 101 65-99 [facility]2021-11-03 14:59:00 Test Item Value Reference Range Interpretation Comments BUN (test code = BUN) 9 7-25 [facility]2021-11-03 14:59:00 Test Item Value Reference Range Interpretation Comments Creatinine Lvl (test code = Creatinine 0.72 0.50-0.99 Lvl) [facility]2021-11-03 14:59:00 Test Item Value Reference Range Interpretation Comments eGFR NON-AFR. ARMENIAN (test code = 86 eGFR NON-AFR. ARMENIAN) [facility]2021-11-03 14:59:00 Test Item Value Reference Range Interpretation Comments eGFR (test code = eGFR 100 ) [facility]2021-11-03 14:59:00 Test Item Value Reference Range Interpretation Comments B/C Ratio (test code = B/C NOT APPLICABLE 6-22 Ratio) [facility]2021-11-03 14:59:00 Test Item Value Reference Range Interpretation Comments Sodium Lvl (test code = Sodium Lvl) 139 135-146 [place] 853501-11-03 14:59:00 Test Item Value Reference Range Interpretation Comments Potassium Lvl (test code = Potassium 4.2 3.5-5.3 Lvl) [facility]2021-11-03 14:59:00 Test Item Value Reference Range Interpretation Comments Chloride Lvl (test code = Chloride Lvl) 108 98-110 [facility]2021-11-03 14:59:00 Test Item Value Reference Range Interpretation Comments CO2 (test code = CO2) 23 20-32 [place] 853501-11-03 14:59:00 Test Item Value Reference Range Interpretation Comments Calcium Lvl (test code = Calcium Lvl) 9.6 8.6-10.4 [place] 139731-11-03 14:59:00 Test Item Value Reference Range Interpretation Comments WBC X 10x3 (test code = WBC X 10x3) 9.1 3.8-10.8 [place] 139731-11-03 14:59:00 Test Item Value Reference Range Interpretation Comments RBC X 10x6 (test code = RBC X 10x6) 3.70 3.80-5.10 [place] 139731-11-03 14:59:00 Test Item Value Reference Range Interpretation Comments Hgb (test code = Hgb) 10.2 11.7-15.5 [place] 139731-11-03 14:59:00 Test Item Value Reference Range Interpretation Comments Hct (test code = Hct) 33.2 35.0-45.0 [place] 139731-11-03 14:59:00 Test Item Value Reference Range Interpretation Comments MCV (test code = MCV) 89.7 80.0-100.0 [place] 139731-11-03 14:59:00 Test Item Value Reference Range Interpretation Comments MCH (test code = MCH) 27.6 pg 27.0-33.0 [place] 139731-11-03 14:59:00 Test Item Value Reference Range Interpretation Comments MCHC (test code = MCHC) 30.7 32.0-36.0 [place] [address]-11-03 14:59:00 Test Item Value Reference Range Interpretation Comments RDW (test code = RDW) 15.0 11.0-15.0 [place] [address]-11-03 14:59:00 Test Item Value Reference Range Interpretation Comments Platelet (test code = Platelet) 727 140-400 [place] 139731-11-03 14:59:00 Test Item Value Reference Range Interpretation Comments MPV (test code = MPV) 11.0 7.5-12.5 [facility]zgecnFHPDEZZOAL2335-09-35 14:59:00 Test Item Value Reference Range Interpretation Comments Neutrophils # (test code = Neutrophils 6743 9008-9773 #) [facility]borExixvbqDRUZHMJXPT6343-56-90 14:59:00 Test Item Value Reference Range Interpretation Comments Lymphocytes # (test code = Lymphocytes 5826 912-3383 #) [facility]borDyvmennUCOHFSTZOU5555-65-79 14:59:00 Test Item Value Reference Range Interpretation Comments Monocytes # (test code = Monocytes #) 619 200-950 [facility]borKqxvuqmLRZZPLNQHV5155-59-92 14:59:00 Test Item Value Reference Range Interpretation Comments Eosinophils # (test code = Eosinophils 164 15-500 #) [facility]borHciioqvQNJXUCVDRU2641-23-59 14:59:00 Test Item Value Reference Range Interpretation Comments Basophils # (test code 82 See_Comment [Aut omated message] The = Basophils #) system which generated this result tra nsmitted reference range : <=200. The reference r arelis was not used to int erpret this result as normal/abnormal . [facility] CentralShcvbciHJBHWATDUZ9446-08-84 14:59:00 Test Item Value Reference Range Interpretation Comments Segs (test code = Segs) 74.1 [facility] CentralRkngupbMXHREMOQQN2089-45-10 14:59:00 Test Item Value Reference Range Interpretation Comments Lymphocytes (test code = Lymphocytes) 16.4 [facility] CentralKcjxikoUPWGTHOOLE5235-40-73 14:59:00 Test Item Value Reference Range Interpretation Comments Monocytes (test code = Monocytes) 6.8 [facility]borBamkrcnXGXFRSYIBG4301-97-27 14:59:00 Test Item Value Reference Range Interpretation Comments Eosinophils (test code = Eosinophils) 1.8 [facility]borHmzppoeGQGEDEENBK3370-08-17 14:59:00 Test Item Value Reference Range Interpretation Comments Basophils (test code = Basophils) 0.9 [facility] [id number] 14:59:00 Test Item Value Reference Range Interpretation Comments Result 2 (Urine Culture) See Result Comment (test code = Result 2 (Urine Culture)) [facility] [id number] 14:59:00 Test Item Value Reference Range Interpretation Comments Glucose Lvl (test code = Glucose Lvl) 101 65-99 [place] 853501-11-03 14:59:00 Test Item Value Reference Range Interpretation Comments BUN (test code = BUN) 9 7-25 [place] 853501-11-03 14:59:00 Test Item Value Reference Range Interpretation Comments Creatinine Lvl (test code = Creatinine 0.72 0.50-0.99 Lvl) [place] 853501-11-03 14:59:00 Test Item Value Reference Range Interpretation Comments eGFR NON-AFR. ARMENIAN (test code = 86 eGFR NON-AFR. ARMENIAN) [place] 853501-11-03 14:59:00 Test Item Value Reference Range Interpretation Comments eGFR (test code = eGFR 100 ) [place] 853501-11-03 14:59:00 Test Item Value Reference Range Interpretation Comments B/C Ratio (test code = B/C NOT APPLICABLE 6-22 Ratio) [place] 853501-11-03 14:59:00 Test Item Value Reference Range Interpretation Comments Sodium Lvl (test code = Sodium Lvl) 139 135-146 [place] 853501-11-03 14:59:00 Test Item Value Reference Range Interpretation Comments Potassium Lvl (test code = Potassium 4.2 3.5-5.3 Lvl) [place] 853501-11-03 14:59:00 Test Item Value Reference Range Interpretation Comments Chloride Lvl (test code = Chloride Lvl) 108 98-110 [place] 853501-11-03 14:59:00 Test Item Value Reference Range Interpretation Comments CO2 (test code = CO2) 23 20-32 [place] 853501-11-03 14:59:00 Test Item Value Reference Range Interpretation Comments Calcium Lvl (test code = Calcium Lvl) 9.6 8.6-10.4 [place] 139731-11-03 14:59:00 Test Item Value Reference Range Interpretation Comments WBC X 10x3 (test code = WBC X 10x3) 9.1 3.8-10.8 [place] 139731-11-03 14:59:00 Test Item Value Reference Range Interpretation Comments RBC X 10x6 (test code = RBC X 10x6) 3.70 3.80-5.10 [place] 139731-11-03 14:59:00 Test Item Value Reference Range Interpretation Comments Hgb (test code = Hgb) 10.2 11.7-15.5 [facility] CentralPvvdcseJBPYYQZLNA9179-94-74 14:59:00 Test Item Value Reference Range Interpretation Comments Hct (test code = Hct) 33.2 35.0-45.0 [place] 139731-11-03 14:59:00 Test Item Value Reference Range Interpretation Comments MCV (test code = MCV) 89.7 80.0-100.0 [place] 139731-11-03 14:59:00 Test Item Value Reference Range Interpretation Comments MCH (test code = MCH) 27.6 pg 27.0-33.0 [place] 139731-11-03 14:59:00 Test Item Value Reference Range Interpretation Comments MCHC (test code = MCHC) 30.7 32.0-36.0 [facility] CentralWmbxdqtAQTLRQPHFL0778-20-14 14:59:00 Test Item Value Reference Range Interpretation Comments RDW (test code = RDW) 15.0 11.0-15.0 [place] 139731-11-03 14:59:00 Test Item Value Reference Range Interpretation Comments Platelet (test code = Platelet) 727 140-400 [facility] CentralFmnaoprHVKXYRXHVO0390-58-74 14:59:00 Test Item Value Reference Range Interpretation Comments MPV (test code = MPV) 11.0 7.5-12.5 [place] 139731-11-03 14:59:00 Test Item Value Reference Range Interpretation Comments Neutrophils # (test code = Neutrophils 6743 6523-8168 #) [facility] CentralGdqjwrbLTLOAWLZEA8444-57-49 14:59:00 Test Item Value Reference Range Interpretation Comments Lymphocytes # (test code = Lymphocytes 4414 461-0975 #) [facility] CentralTueqqzqRHQZKYRWJT3989-61-56 14:59:00 Test Item Value Reference Range Interpretation Comments Monocytes # (test code = Monocytes #) 619 200-950 [facility] CentralKidfpeaQAVPYVVKWR0519-48-79 14:59:00 Test Item Value Reference Range Interpretation Comments Eosinophils # (test code = Eosinophils 164 15-500 #) [facility] CentralKulnzzpPVMQNXKNFJ9178-61-59 14:59:00 Test Item Value Reference Range Interpretation Comments Basophils # (test code 82 See_Comment [Aut omated message] The = Basophils #) system which generated this result tra nsmitted reference range : <=200. The reference r arelis was not used to int erpret this result as normal/abnormal . [facility] CentralMwahcreWIHXOLPLUQ5224-10-84 14:59:00 Test Item Value Reference Range Interpretation Comments Segs (test code = Segs) 74.1 [place] 139731-11-03 14:59:00 Test Item Value Reference Range Interpretation Comments Lymphocytes (test code = Lymphocytes) 16.4 [place] 139731-11-03 14:59:00 Test Item Value Reference Range Interpretation Comments Monocytes (test code = Monocytes) 6.8 [place] 139731-11-03 14:59:00 Test Item Value Reference Range Interpretation Comments Eosinophils (test code = Eosinophils) 1.8 [facility] CentralYrfahieSEYMHOPISK7342-32-81 14:59:00 Test Item Value Reference Range Interpretation Comments Basophils (test code = Basophils) 0.9 [facility] [id number] 14:59:00 Test Item Value Reference Range Interpretation Comments Result 2 (Urine Culture) See Result Comment (test code = Result 2 (Urine Culture)) [facility]2021-11-03 14:59:00 Test Item Value Reference Range Interpretation Comments Glucose Lvl (test code = Glucose Lvl) 101 65-99 [facility]2021-11-03 14:59:00 Test Item Value Reference Range Interpretation Comments BUN (test code = BUN) 9 7-25 [place] 853501-11-03 14:59:00 Test Item Value Reference Range Interpretation Comments Creatinine Lvl (test code = Creatinine 0.72 0.50-0.99 Lvl) [facility]2021-11-03 14:59:00 Test Item Value Reference Range Interpretation Comments eGFR NON-AFR. ARMENIAN (test code = 86 eGFR NON-AFR. ARMENIAN) [facility]2021-11-03 14:59:00 Test Item Value Reference Range Interpretation Comments eGFR (test code = eGFR 100 ) [place] 853501-11-03 14:59:00 Test Item Value Reference Range Interpretation Comments B/C Ratio (test code = B/C NOT APPLICABLE 6-22 Ratio) [place] 853501-11-03 14:59:00 Test Item Value Reference Range Interpretation Comments Sodium Lvl (test code = Sodium Lvl) 139 135-146 [place] 853501-11-03 14:59:00 Test Item Value Reference Range Interpretation Comments Potassium Lvl (test code = Potassium 4.2 3.5-5.3 Lvl) [place] 853501-11-03 14:59:00 Test Item Value Reference Range Interpretation Comments Chloride Lvl (test code = Chloride Lvl) 108 98-110 [place] 853501-11-03 14:59:00 Test Item Value Reference Range Interpretation Comments CO2 (test code = CO2) 23 20-32 [place] 853501-11-03 14:59:00 Test Item Value Reference Range Interpretation Comments Calcium Lvl (test code = Calcium Lvl) 9.6 8.6-10.4 [place] 139731-11-03 14:59:00 Test Item Value Reference Range Interpretation Comments WBC X 10x3 (test code = WBC X 10x3) 9.1 3.8-10.8 [place] [address]-11-03 14:59:00 Test Item Value Reference Range Interpretation Comments RBC X 10x6 (test code = RBC X 10x6) 3.70 3.80-5.10 [place] 139731-11-03 14:59:00 Test Item Value Reference Range Interpretation Comments Hgb (test code = Hgb) 10.2 11.7-15.5 [place] 139731-11-03 14:59:00 Test Item Value Reference Range Interpretation Comments Hct (test code = Hct) 33.2 35.0-45.0 [place] [address]-11-03 14:59:00 Test Item Value Reference Range Interpretation Comments MCV (test code = MCV) 89.7 80.0-100.0 [place] [address]-11-03 14:59:00 Test Item Value Reference Range Interpretation Comments MCH (test code = MCH) 27.6 pg 27.0-33.0 [place] 139731-11-03 14:59:00 Test Item Value Reference Range Interpretation Comments MCHC (test code = MCHC) 30.7 32.0-36.0 [place] [address]-11-03 14:59:00 Test Item Value Reference Range Interpretation Comments RDW (test code = RDW) 15.0 11.0-15.0 [facility]borXllwibtXGFGTDCHJX4779-97-43 14:59:00 Test Item Value Reference Range Interpretation Comments Platelet (test code = Platelet) 727 140-400 [facility]borMkfgwqrYTCPWXRBAQ2084-86-34 14:59:00 Test Item Value Reference Range Interpretation Comments MPV (test code = MPV) 11.0 7.5-12.5 [facility] CentralRdgyrtiHTJIYEMAOQ8759-08-55 14:59:00 Test Item Value Reference Range Interpretation Comments Neutrophils # (test code = Neutrophils 6743 0079-4097 #) [facility] ArborUthuimkJKDBVYIMNL3741-04-95 14:59:00 Test Item Value Reference Range Interpretation Comments Lymphocytes # (test code = Lymphocytes 8710 577-0659 #) [facility]borWzzorlbZROSUOGGBO1172-86-04 14:59:00 Test Item Value Reference Range Interpretation Comments Monocytes # (test code = Monocytes #) 619 200-950 [facility] ArborDhjeojnZYIHOGIERN8697-57-34 14:59:00 Test Item Value Reference Range Interpretation Comments Eosinophils # (test code = Eosinophils 164 15-500 #) [facility]borMulxtlmXZAEJNHWFW3606-89-94 14:59:00 Test Item Value Reference Range Interpretation Comments Basophils # (test code 82 See_Comment [Aut omated message] The = Basophils #) system which generated this result tra nsmitted reference range : <=200. The reference r aerlis was not used to int erpret this result as normal/abnormal . [facility] CentralCvifdjoQOJEPXSJYF8750-26-76 14:59:00 Test Item Value Reference Range Interpretation Comments Segs (test code = Segs) 74.1 [facility] CentralWojbfbhHJZCJGTUTK8462-20-25 14:59:00 Test Item Value Reference Range Interpretation Comments Lymphocytes (test code = Lymphocytes) 16.4 [facility] CentralBqtwucyLIYFYAXSEG7105-96-13 14:59:00 Test Item Value Reference Range Interpretation Comments Monocytes (test code = Monocytes) 6.8 [facility] CentralFtcginnQQNUYVVMHI2174-11-38 14:59:00 Test Item Value Reference Range Interpretation Comments Eosinophils (test code = Eosinophils) 1.8 [facility]borCkpnqjjSDGOIDFLAM0999-45-65 14:59:00 Test Item Value Reference Range Interpretation Comments Basophils (test code = Basophils) 0.9 [facility] ATDEKMT6295-77-50 14:59:00 Test Item Value Reference Range Interpretation Comments Result 2 (Urine Culture) See Result Comment (test code = Result 2 (Urine Culture)) [place] 853501-11-03 14:59:00 Test Item Value Reference Range Interpretation Comments Glucose Lvl (test code = Glucose Lvl) 101 65-99 [place] 853501-11-03 14:59:00 Test Item Value Reference Range Interpretation Comments BUN (test code = BUN) 9 7-25 [place] 853501-11-03 14:59:00 Test Item Value Reference Range Interpretation Comments Creatinine Lvl (test code = Creatinine 0.72 0.50-0.99 Lvl) [place] 853501-11-03 14:59:00 Test Item Value Reference Range Interpretation Comments eGFR NON-AFR. ARMENIAN (test code = 86 eGFR NON-AFR. ARMENIAN) [facility]2021-11-03 14:59:00 Test Item Value Reference Range Interpretation Comments eGFR (test code = eGFR 100 ) [place] 853501-11-03 14:59:00 Test Item Value Reference Range Interpretation Comments B/C Ratio (test code = B/C NOT APPLICABLE 6-22 Ratio) [place] 853501-11-03 14:59:00 Test Item Value Reference Range Interpretation Comments Sodium Lvl (test code = Sodium Lvl) 139 135-146 [facility]2021-11-03 14:59:00 Test Item Value Reference Range Interpretation Comments Potassium Lvl (test code = Potassium 4.2 3.5-5.3 Lvl) [place] 853501-11-03 14:59:00 Test Item Value Reference Range Interpretation Comments Chloride Lvl (test code = Chloride Lvl) 108 98-110 [place] 853501-11-03 14:59:00 Test Item Value Reference Range Interpretation Comments CO2 (test code = CO2) 23 20-32 [place] 853501-11-03 14:59:00 Test Item Value Reference Range Interpretation Comments Calcium Lvl (test code = Calcium Lvl) 9.6 8.6-10.4 [facility] CentralLukntjqYXURQCGGRZ6373-46-94 14:59:00 Test Item Value Reference Range Interpretation Comments WBC X 10x3 (test code = WBC X 10x3) 9.1 3.8-10.8 [facility] CentralIursalvOLTNIMUFGR1584-02-89 14:59:00 Test Item Value Reference Range Interpretation Comments RBC X 10x6 (test code = RBC X 10x6) 3.70 3.80-5.10 [facility] CentralZknaorlUSINIKYYVP8602-53-99 14:59:00 Test Item Value Reference Range Interpretation Comments Hgb (test code = Hgb) 10.2 11.7-15.5 [facility] CentralEntsacpKALQDNIJDH0015-94-94 14:59:00 Test Item Value Reference Range Interpretation Comments Hct (test code = Hct) 33.2 35.0-45.0 [facility] CentralAeilfudYKGFRKFYBL6604-82-29 14:59:00 Test Item Value Reference Range Interpretation Comments MCV (test code = MCV) 89.7 80.0-100.0 [facility] CentralUbihlwuPFUHXTZUUW1731-25-67 14:59:00 Test Item Value Reference Range Interpretation Comments MCH (test code = MCH) 27.6 pg 27.0-33.0 [facility] CentralGkrpjkbAXDQZRWGBB6901-89-16 14:59:00 Test Item Value Reference Range Interpretation Comments MCHC (test code = MCHC) 30.7 32.0-36.0 [facility] CentralMtmorljUVDSWAGGYF4370-23-76 14:59:00 Test Item Value Reference Range Interpretation Comments RDW (test code = RDW) 15.0 11.0-15.0 [facility] CentralEiqflkiRMATRDORRY3256-08-50 14:59:00 Test Item Value Reference Range Interpretation Comments Platelet (test code = Platelet) 727 140-400 [facility] CentralSinuysxFAKWITPOXF2202-01-90 14:59:00 Test Item Value Reference Range Interpretation Comments MPV (test code = MPV) 11.0 7.5-12.5 [facility] CentralFjpiupqQVEYFDBGGY4445-54-22 14:59:00 Test Item Value Reference Range Interpretation Comments Neutrophils # (test code = Neutrophils 6743 7395-8725 #) [facility] CentralFxdaxhbKULYBELAOZ9803-99-55 14:59:00 Test Item Value Reference Range Interpretation Comments Lymphocytes # (test code = Lymphocytes 1216 533-1287 #) [facility] CentralXaopsqfQCRCGIPGEK4180-93-10 14:59:00 Test Item Value Reference Range Interpretation Comments Monocytes # (test code = Monocytes #) 619 200-950 [facility] CentralJbllnymBRMNUKLPHL0764-09-63 14:59:00 Test Item Value Reference Range Interpretation Comments Eosinophils # (test code = Eosinophils 164 15-500 #) [facility] CentralQtogucnQCSUHADFQL7390-49-76 14:59:00 Test Item Value Reference Range Interpretation Comments Basophils # (test code 82 See_Comment [Aut omated message] The = Basophils #) system which generated this result tra nsmitted reference range : <=200. The reference r raelis was not used to int erpret this result as normal/abnormal . [facility] CentralYfxzndePBREYHDSYD0273-97-34 14:59:00 Test Item Value Reference Range Interpretation Comments Segs (test code = Segs) 74.1 [place] 139731-11-03 14:59:00 Test Item Value Reference Range Interpretation Comments Lymphocytes (test code = Lymphocytes) 16.4 [place] 139731-11-03 14:59:00 Test Item Value Reference Range Interpretation Comments Monocytes (test code = Monocytes) 6.8 [facility] CentralVeyedltUNRISFAQWG4812-87-93 14:59:00 Test Item Value Reference Range Interpretation Comments Eosinophils (test code = Eosinophils) 1.8 [place] 139731-11-03 14:59:00 Test Item Value Reference Range Interpretation Comments Basophils (test code = Basophils) 0.9 [facility] [id number] 14:59:00 Test Item Value Reference Range Interpretation Comments Result 2 (Urine Culture) See Result Comment (test code = Result 2 (Urine Culture)) [facility]2021-11-03 14:59:00 Test Item Value Reference Range Interpretation Comments Glucose Lvl (test code = Glucose Lvl) 101 65-99 [facility]2021-11-03 14:59:00 Test Item Value Reference Range Interpretation Comments BUN (test code = BUN) 9 7-25 [facility]2021-11-03 14:59:00 Test Item Value Reference Range Interpretation Comments Creatinine Lvl (test code = Creatinine 0.72 0.50-0.99 Lvl) [place] 853501-11-03 14:59:00 Test Item Value Reference Range Interpretation Comments eGFR NON-AFR. ARMENIAN (test code = 86 eGFR NON-AFR. ARMENIAN) [facility]2021-11-03 14:59:00 Test Item Value Reference Range Interpretation Comments eGFR (test code = eGFR 100 ) [place] 853501-11-03 14:59:00 Test Item Value Reference Range Interpretation Comments B/C Ratio (test code = B/C NOT APPLICABLE 6-22 Ratio) [place] [address]-11-03 14:59:00 Test Item Value Reference Range Interpretation Comments Sodium Lvl (test code = Sodium Lvl) 139 135-146 [place] 853501-11-03 14:59:00 Test Item Value Reference Range Interpretation Comments Potassium Lvl (test code = Potassium 4.2 3.5-5.3 Lvl) [place] 853501-11-03 14:59:00 Test Item Value Reference Range Interpretation Comments Chloride Lvl (test code = Chloride Lvl) 108 98-110 [place] 853501-11-03 14:59:00 Test Item Value Reference Range Interpretation Comments CO2 (test code = CO2) 23 20-32 [place] 853501-11-03 14:59:00 Test Item Value Reference Range Interpretation Comments Calcium Lvl (test code = Calcium Lvl) 9.6 8.6-10.4 [place] 139731-11-03 14:59:00 Test Item Value Reference Range Interpretation Comments WBC X 10x3 (test code = WBC X 10x3) 9.1 3.8-10.8 [place] [address]-11-03 14:59:00 Test Item Value Reference Range Interpretation Comments RBC X 10x6 (test code = RBC X 10x6) 3.70 3.80-5.10 [place] 139731-11-03 14:59:00 Test Item Value Reference Range Interpretation Comments Hgb (test code = Hgb) 10.2 11.7-15.5 [place] [address]-11-03 14:59:00 Test Item Value Reference Range Interpretation Comments Hct (test code = Hct) 33.2 35.0-45.0 [place] [address]-11-03 14:59:00 Test Item Value Reference Range Interpretation Comments MCV (test code = MCV) 89.7 80.0-100.0 [place] [address]-11-03 14:59:00 Test Item Value Reference Range Interpretation Comments MCH (test code = MCH) 27.6 pg 27.0-33.0 [facility] CentralOiszcfyKYOYPIFXED7526-80-09 14:59:00 Test Item Value Reference Range Interpretation Comments MCHC (test code = MCHC) 30.7 32.0-36.0 [facility] CentralAxifagoTRYGQSSILY5923-76-72 14:59:00 Test Item Value Reference Range Interpretation Comments RDW (test code = RDW) 15.0 11.0-15.0 [place] 139731-11-03 14:59:00 Test Item Value Reference Range Interpretation Comments Platelet (test code = Platelet) 727 140-400 [facility] CentralEteifpqZYXNOPVRAR8716-47-40 14:59:00 Test Item Value Reference Range Interpretation Comments MPV (test code = MPV) 11.0 7.5-12.5 [place] 139731-11-03 14:59:00 Test Item Value Reference Range Interpretation Comments Neutrophils # (test code = Neutrophils 6743 9211-2065 #) [facility] CentralRzytwzcDGMZBFJVKG3942-37-12 14:59:00 Test Item Value Reference Range Interpretation Comments Lymphocytes # (test code = Lymphocytes 6374 192-4253 #) [facility] CentralIyabstcKXIDRZJUMK3651-42-82 14:59:00 Test Item Value Reference Range Interpretation Comments Monocytes # (test code = Monocytes #) 619 200-950 [facility] CentralIlamtjeREIQCYULJB6373-21-30 14:59:00 Test Item Value Reference Range Interpretation Comments Eosinophils # (test code = Eosinophils 164 15-500 #) [facility] CentralSkdhxlsXEEJEJBSAK5007-69-20 14:59:00 Test Item Value Reference Range Interpretation Comments Basophils # (test code 82 See_Comment [Aut omated message] The = Basophils #) system which generated this result tra nsmitted reference range : <=200. The reference r arelis was not used to int erpret this result as normal/abnormal . [place] 139731-11-03 14:59:00 Test Item Value Reference Range Interpretation Comments Segs (test code = Segs) 74.1 [place] 139731-11-03 14:59:00 Test Item Value Reference Range Interpretation Comments Lymphocytes (test code = Lymphocytes) 16.4 [place] 139731-11-03 14:59:00 Test Item Value Reference Range Interpretation Comments Monocytes (test code = Monocytes) 6.8 [facility]xfoojvCJSXQARIRD1981-53-95 14:59:00 Test Item Value Reference Range Interpretation Comments Eosinophils (test code = Eosinophils) 1.8 [place] 139731-11-03 14:59:00 Test Item Value Reference Range Interpretation Comments Basophils (test code = Basophils) 0.9 [facility] [id number] 14:59:00 Test Item Value Reference Range Interpretation Comments Result 2 (Urine Culture) See Result Comment (test code = Result 2 (Urine Culture)) [facility]2021-11-03 14:59:00 Test Item Value Reference Range Interpretation Comments Glucose Lvl (test code = Glucose Lvl) 101 65-99 [place] 853501-11-03 14:59:00 Test Item Value Reference Range Interpretation Comments BUN (test code = BUN) 9 7-25 [place] 853501-11-03 14:59:00 Test Item Value Reference Range Interpretation Comments Creatinine Lvl (test code = Creatinine 0.72 0.50-0.99 Lvl) [place] 853501-11-03 14:59:00 Test Item Value Reference Range Interpretation Comments eGFR NON-AFR. ARMENIAN (test code = 86 eGFR NON-AFR. ARMENIAN) [facility]2021-11-03 14:59:00 Test Item Value Reference Range Interpretation Comments eGFR (test code = eGFR 100 ) [place] 853501-11-03 14:59:00 Test Item Value Reference Range Interpretation Comments B/C Ratio (test code = B/C NOT APPLICABLE 622 Ratio) [place] 853501-11-03 14:59:00 Test Item Value Reference Range Interpretation Comments Sodium Lvl (test code = Sodium Lvl) 139 135-146 [place] 853501-11-03 14:59:00 Test Item Value Reference Range Interpretation Comments Potassium Lvl (test code = Potassium 4.2 3.5-5.3 Lvl) [facility]2021-11-03 14:59:00 Test Item Value Reference Range Interpretation Comments Chloride Lvl (test code = Chloride Lvl) 108 98-110 [place] 853501-11-03 14:59:00 Test Item Value Reference Range Interpretation Comments CO2 (test code = CO2) 23 20-32 [facility]2021-11-03 14:59:00 Test Item Value Reference Range Interpretation Comments Calcium Lvl (test code = Calcium Lvl) 9.6 8.6-10.4 [place] 139731-11-03 14:59:00 Test Item Value Reference Range Interpretation Comments WBC X 10x3 (test code = WBC X 10x3) 9.1 3.8-10.8 [place] 139731-11-03 14:59:00 Test Item Value Reference Range Interpretation Comments RBC X 10x6 (test code = RBC X 10x6) 3.70 3.80-5.10 [place] 139731-11-03 14:59:00 Test Item Value Reference Range Interpretation Comments Hgb (test code = Hgb) 10.2 11.7-15.5 [place] 139731-11-03 14:59:00 Test Item Value Reference Range Interpretation Comments Hct (test code = Hct) 33.2 35.0-45.0 [place] 139731-11-03 14:59:00 Test Item Value Reference Range Interpretation Comments MCV (test code = MCV) 89.7 80.0-100.0 [place] [address]-11-03 14:59:00 Test Item Value Reference Range Interpretation Comments MCH (test code = MCH) 27.6 pg 27.0-33.0 [facility] CentralZiufnngLQGOQTNLWJ1632-00-97 14:59:00 Test Item Value Reference Range Interpretation Comments MCHC (test code = MCHC) 30.7 32.0-36.0 [place] 139731-11-03 14:59:00 Test Item Value Reference Range Interpretation Comments RDW (test code = RDW) 15.0 11.0-15.0 [place] [address]-11-03 14:59:00 Test Item Value Reference Range Interpretation Comments Platelet (test code = Platelet) 727 140-400 [facility] CentralXudzktcRDCDGFLXOY6081-97-29 14:59:00 Test Item Value Reference Range Interpretation Comments MPV (test code = MPV) 11.0 7.5-12.5 [place] [address]-11-03 14:59:00 Test Item Value Reference Range Interpretation Comments Neutrophils # (test code = Neutrophils 6743 3286-2809 #) [facility]EgjsyslMNDUJPBGJR9058-52-90 14:59:00 Test Item Value Reference Range Interpretation Comments Lymphocytes # (test code = Lymphocytes 2348 596-3670 #) [facility]borFjekhhvAJKNGVFJZR6192-13-01 14:59:00 Test Item Value Reference Range Interpretation Comments Monocytes # (test code = Monocytes #) 619 200-950 [facility] ArborTzmrgynRJDNRDOJUF1646-80-40 14:59:00 Test Item Value Reference Range Interpretation Comments Eosinophils # (test code = Eosinophils 164 15-500 #) [facility] CentralPpzhwieZXMMFLBTHY8012-69-62 14:59:00 Test Item Value Reference Range Interpretation Comments Basophils # (test code 82 See_Comment [Aut omated message] The = Basophils #) system which generated this result tra nsmitted reference range : <=200. The reference r arelis was not used to int erpret this result as normal/abnormal . [facility] CentralGrngfcdIFMXKBZYTD6533-52-02 14:59:00 Test Item Value Reference Range Interpretation Comments Segs (test code = Segs) 74.1 [facility] CentralKeuqdgcMHFWZLCXEF6178-90-82 14:59:00 Test Item Value Reference Range Interpretation Comments Lymphocytes (test code = Lymphocytes) 16.4 [facility] CentralImkohdsFILWWXFAHN2078-97-53 14:59:00 Test Item Value Reference Range Interpretation Comments Monocytes (test code = Monocytes) 6.8 [facility] CentralBcqkasmWYBNWXUNIQ8485-09-43 14:59:00 Test Item Value Reference Range Interpretation Comments Eosinophils (test code = Eosinophils) 1.8 [facility] CentralNcvbjniIVEJRKKOYT1847-26-10 14:59:00 Test Item Value Reference Range Interpretation Comments Basophils (test code = Basophils) 0.9 [facility]REFERE[facility] [id number] 14:59:00 Test Item Value Reference Range Interpretation Comments Result 2 (Urine Culture) See Result Comment (test code = Result 2 (Urine Culture)) [facility] [id number] 14:59:00 Test Item Value Reference Range Interpretation Comments Glucose Lvl (test code = Glucose Lvl) 101 65-99 [facility]2021-11-03 14:59:00 Test Item Value Reference Range Interpretation Comments BUN (test code = BUN) 9 7-25 [facility]2021-11-03 14:59:00 Test Item Value Reference Range Interpretation Comments Creatinine Lvl (test code = Creatinine 0.72 0.50-0.99 Lvl) [place] [address]-11-03 14:59:00 Test Item Value Reference Range Interpretation Comments eGFR NON-AFR. ARMENIAN (test code = 86 eGFR NON-AFR. ARMENIAN) [place] [address]-11-03 14:59:00 Test Item Value Reference Range Interpretation Comments eGFR (test code = eGFR 100 ) [place] [address]-11-03 14:59:00 Test Item Value Reference Range Interpretation Comments B/C Ratio (test code = B/C NOT APPLICABLE 6-22 Ratio) [place] [address]-11-03 14:59:00 Test Item Value Reference Range Interpretation Comments Sodium Lvl (test code = Sodium Lvl) 139 135-146 [place] 853501-11-03 14:59:00 Test Item Value Reference Range Interpretation Comments Potassium Lvl (test code = Potassium 4.2 3.5-5.3 Lvl) [place] [address]-11-03 14:59:00 Test Item Value Reference Range Interpretation Comments Chloride Lvl (test code = Chloride Lvl) 108 98-110 [place] 853501-11-03 14:59:00 Test Item Value Reference Range Interpretation Comments CO2 (test code = CO2) 23 20-32 [place] 853501-11-03 14:59:00 Test Item Value Reference Range Interpretation Comments Calcium Lvl (test code = Calcium Lvl) 9.6 8.6-10.4 [place] [address]-11-03 14:59:00 Test Item Value Reference Range Interpretation Comments WBC X 10x3 (test code = WBC X 10x3) 9.1 3.8-10.8 [place] [address]-11-03 14:59:00 Test Item Value Reference Range Interpretation Comments RBC X 10x6 (test code = RBC X 10x6) 3.70 3.80-5.10 [place] 139731-11-03 14:59:00 Test Item Value Reference Range Interpretation Comments Hgb (test code = Hgb) 10.2 11.7-15.5 [place] [address]-11-03 14:59:00 Test Item Value Reference Range Interpretation Comments Hct (test code = Hct) 33.2 35.0-45.0 [place] 139731-11-03 14:59:00 Test Item Value Reference Range Interpretation Comments MCV (test code = MCV) 89.7 80.0-100.0 [place] 139731-11-03 14:59:00 Test Item Value Reference Range Interpretation Comments MCH (test code = MCH) 27.6 pg 27.0-33.0 [place] 139731-11-03 14:59:00 Test Item Value Reference Range Interpretation Comments MCHC (test code = MCHC) 30.7 32.0-36.0 [place] [address]-11-03 14:59:00 Test Item Value Reference Range Interpretation Comments RDW (test code = RDW) 15.0 11.0-15.0 [place] [address]-11-03 14:59:00 Test Item Value Reference Range Interpretation Comments Platelet (test code = Platelet) 727 140-400 [place] 139731-11-03 14:59:00 Test Item Value Reference Range Interpretation Comments MPV (test code = MPV) 11.0 7.5-12.5 [place] [address]-11-03 14:59:00 Test Item Value Reference Range Interpretation Comments Neutrophils # (test code = Neutrophils 6743 6870-6124 #) [place] 139731-11-03 14:59:00 Test Item Value Reference Range Interpretation Comments Lymphocytes # (test code = Lymphocytes 1974 306-8448 #) [place] 139731-11-03 14:59:00 Test Item Value Reference Range Interpretation Comments Monocytes # (test code = Monocytes #) 619 200-950 [place] 139731-11-03 14:59:00 Test Item Value Reference Range Interpretation Comments Eosinophils # (test code = Eosinophils 164 15-500 #) [place] 139731-11-03 14:59:00 Test Item Value Reference Range Interpretation Comments Basophils # (test code 82 See_Comment [Aut omated message] The = Basophils #) system which generated this result tra nsmitted reference range : <=200. The reference r arelis was not used to int erpret this result as normal/abnormal . [facility] CentralAkrxziuNGEHSWMKYY6963-26-18 14:59:00 Test Item Value Reference Range Interpretation Comments Segs (test code = Segs) 74.1 [facility]borDnnvtaiFVWTKPZJSV5515-05-82 14:59:00 Test Item Value Reference Range Interpretation Comments Lymphocytes (test code = Lymphocytes) 16.4 [facility] CentralCqsyennCHQAZBIMWT0871-74-01 14:59:00 Test Item Value Reference Range Interpretation Comments Monocytes (test code = Monocytes) 6.8 [facility]borGgmchcsSTYRAFEWHF4985-71-61 14:59:00 Test Item Value Reference Range Interpretation Comments Eosinophils (test code = Eosinophils) 1.8 [place] 139731-11-03 14:59:00 Test Item Value Reference Range Interpretation Comments Basophils (test code = Basophils) 0.9 [facility] [id number] 14:59:00 Test Item Value Reference Range Interpretation Comments Result 2 (Urine Culture) See Result Comment (test code = Result 2 (Urine Culture)) [facility] [id number] 14:59:00 Test Item Value Reference Range Interpretation Comments Glucose Lvl (test code = Glucose Lvl) 101 65-99 [facility] OKJDS4970-03-92 14:59:00 Test Item Value Reference Range Interpretation Comments BUN (test code = BUN) 9 7-25 [facility]2021-11-03 14:59:00 Test Item Value Reference Range Interpretation Comments Creatinine Lvl (test code = Creatinine 0.72 0.50-0.99 Lvl) [facility]2021-11-03 14:59:00 Test Item Value Reference Range Interpretation Comments eGFR NON-AFR. ARMENIAN (test code = 86 eGFR NON-AFR. ARMENIAN) [facility]2021-11-03 14:59:00 Test Item Value Reference Range Interpretation Comments eGFR (test code = eGFR 100 ) [facility]2021-11-03 14:59:00 Test Item Value Reference Range Interpretation Comments B/C Ratio (test code = B/C NOT APPLICABLE 622 Ratio) [facility]2021-11-03 14:59:00 Test Item Value Reference Range Interpretation Comments Sodium Lvl (test code = Sodium Lvl) 139 135-146 [facility] SSGTZ1604-47-45 14:59:00 Test Item Value Reference Range Interpretation Comments Potassium Lvl (test code = Potassium 4.2 3.5-5.3 Lvl) [facility]2021-11-03 14:59:00 Test Item Value Reference Range Interpretation Comments Chloride Lvl (test code = Chloride Lvl) 108 98-110 [place] 853501-11-03 14:59:00 Test Item Value Reference Range Interpretation Comments CO2 (test code = CO2) 23 20-32 [place] 853501-11-03 14:59:00 Test Item Value Reference Range Interpretation Comments Calcium Lvl (test code = Calcium Lvl) 9.6 8.6-10.4 [place] 139731-11-03 14:59:00 Test Item Value Reference Range Interpretation Comments WBC X 10x3 (test code = WBC X 10x3) 9.1 3.8-10.8 [place] [address]-11-03 14:59:00 Test Item Value Reference Range Interpretation Comments RBC X 10x6 (test code = RBC X 10x6) 3.70 3.80-5.10 [place] 139731-11-03 14:59:00 Test Item Value Reference Range Interpretation Comments Hgb (test code = Hgb) 10.2 11.7-15.5 [place] 139731-11-03 14:59:00 Test Item Value Reference Range Interpretation Comments Hct (test code = Hct) 33.2 35.0-45.0 [place] 139731-11-03 14:59:00 Test Item Value Reference Range Interpretation Comments MCV (test code = MCV) 89.7 80.0-100.0 [place] 139731-11-03 14:59:00 Test Item Value Reference Range Interpretation Comments MCH (test code = MCH) 27.6 pg 27.0-33.0 [place] [address]-11-03 14:59:00 Test Item Value Reference Range Interpretation Comments MCHC (test code = MCHC) 30.7 32.0-36.0 [place] [address]-11-03 14:59:00 Test Item Value Reference Range Interpretation Comments RDW (test code = RDW) 15.0 11.0-15.0 [place] [address]-11-03 14:59:00 Test Item Value Reference Range Interpretation Comments Platelet (test code = Platelet) 487 140-400 [facility]borEwdrzroJPUKEPSRGH3558-53-26 14:59:00 Test Item Value Reference Range Interpretation Comments MPV (test code = MPV) 11.0 7.5-12.5 [facility] CentralUxitbypICRIRMOCBF3671-45-67 14:59:00 Test Item Value Reference Range Interpretation Comments Neutrophils # (test code = Neutrophils 6743 7371-7596 #) [facility]borNlqwkajPDJKITACQP4445-06-73 14:59:00 Test Item Value Reference Range Interpretation Comments Lymphocytes # (test code = Lymphocytes 5158 086-5481 #) [facility] CampusYnbphzaNSBJWORCYR0021-19-21 14:59:00 Test Item Value Reference Range Interpretation Comments Monocytes # (test code = Monocytes #) 619 200-950 [facility] ArborYlpisorHZTWGQEOLL3720-92-45 14:59:00 Test Item Value Reference Range Interpretation Comments Eosinophils # (test code = Eosinophils 164 15-500 #) [facility] CentralIukluwjHXMUMZTFEA2654-20-52 14:59:00 Test Item Value Reference Range Interpretation Comments Basophils # (test code 82 See_Comment [Aut omated message] The = Basophils #) system which generated this result tra nsmitted reference range : <=200. The reference r arelis was not used to int erpret this result as normal/abnormal . [facility] CentralSfelfjxXYCSLPBBQF6341-54-46 14:59:00 Test Item Value Reference Range Interpretation Comments Segs (test code = Segs) 74.1 [facility] CentralJifmfoxKAGEWYIZVE5515-59-31 14:59:00 Test Item Value Reference Range Interpretation Comments Lymphocytes (test code = Lymphocytes) 16.4 [facility]borNrunvtpBUYQRWVWJR2453-98-69 14:59:00 Test Item Value Reference Range Interpretation Comments Monocytes (test code = Monocytes) 6.8 [facility]borIkvzqjdNYOYGFGGTH9339-30-39 14:59:00 Test Item Value Reference Range Interpretation Comments Eosinophils (test code = Eosinophils) 1.8 [facility] CentralQtautfhRHLGUMAFZT7878-41-40 14:59:00 Test Item Value Reference Range Interpretation Comments Basophils (test code = Basophils) 0.9 [facility] [id number] 14:59:00 Test Item Value Reference Range Interpretation Comments Result 2 (Urine Culture) See Result Comment (test code = Result 2 (Urine Culture)) [facility] [id number] 14:59:00 Test Item Value Reference Range Interpretation Comments Glucose Lvl (test code = Glucose Lvl) 101 65-99 [place] 853501-11-03 14:59:00 Test Item Value Reference Range Interpretation Comments BUN (test code = BUN) 9 7-25 [place] 853501-11-03 14:59:00 Test Item Value Reference Range Interpretation Comments Creatinine Lvl (test code = Creatinine 0.72 0.50-0.99 Lvl) [place] 853501-11-03 14:59:00 Test Item Value Reference Range Interpretation Comments eGFR NON-AFR. ARMENIAN (test code = 86 eGFR NON-AFR. ARMENIAN) [place] 853501-11-03 14:59:00 Test Item Value Reference Range Interpretation Comments eGFR (test code = eGFR 100 ) [place] [address]-11-03 14:59:00 Test Item Value Reference Range Interpretation Comments B/C Ratio (test code = B/C NOT APPLICABLE 6-22 Ratio) [place] 853501-11-03 14:59:00 Test Item Value Reference Range Interpretation Comments Sodium Lvl (test code = Sodium Lvl) 139 135-146 [place] 853501-11-03 14:59:00 Test Item Value Reference Range Interpretation Comments Potassium Lvl (test code = Potassium 4.2 3.5-5.3 Lvl) [place] 853501-11-03 14:59:00 Test Item Value Reference Range Interpretation Comments Chloride Lvl (test code = Chloride Lvl) 108 98-110 [place] 853501-11-03 14:59:00 Test Item Value Reference Range Interpretation Comments CO2 (test code = CO2) 23 20-32 [place] [address]-11-03 14:59:00 Test Item Value Reference Range Interpretation Comments Calcium Lvl (test code = Calcium Lvl) 9.6 8.6-10.4 [place] [address]-11-03 14:59:00 Test Item Value Reference Range Interpretation Comments WBC X 10x3 (test code = WBC X 10x3) 9.1 3.8-10.8 [place] [address]-11-03 14:59:00 Test Item Value Reference Range Interpretation Comments RBC X 10x6 (test code = RBC X 10x6) 3.70 3.80-5.10 [facility] CentralJzfjnqbEMVIYHNISC5855-27-03 14:59:00 Test Item Value Reference Range Interpretation Comments Hgb (test code = Hgb) 10.2 11.7-15.5 [facility] CentralXywjyegHVRPMRLXYR8286-26-56 14:59:00 Test Item Value Reference Range Interpretation Comments Hct (test code = Hct) 33.2 35.0-45.0 [place] 139731-11-03 14:59:00 Test Item Value Reference Range Interpretation Comments MCV (test code = MCV) 89.7 80.0-100.0 [place] [address]-11-03 14:59:00 Test Item Value Reference Range Interpretation Comments MCH (test code = MCH) 27.6 pg 27.0-33.0 [place] 139731-11-03 14:59:00 Test Item Value Reference Range Interpretation Comments MCHC (test code = MCHC) 30.7 32.0-36.0 [facility] CentralQiezkxbLYHHOAQSMK9335-94-71 14:59:00 Test Item Value Reference Range Interpretation Comments RDW (test code = RDW) 15.0 11.0-15.0 [place] 139731-11-03 14:59:00 Test Item Value Reference Range Interpretation Comments Platelet (test code = Platelet) 727 140-400 [facility] CentralSgvlnulNZNUFWWVVQ1893-26-10 14:59:00 Test Item Value Reference Range Interpretation Comments MPV (test code = MPV) 11.0 7.5-12.5 [place] 139731-11-03 14:59:00 Test Item Value Reference Range Interpretation Comments Neutrophils # (test code = Neutrophils 6743 9653-8236 #) [facility] CentralXvajsryETYLGFNLQE5837-39-81 14:59:00 Test Item Value Reference Range Interpretation Comments Lymphocytes # (test code = Lymphocytes [phone] #) [facility] CentralXqbndayXXDBJMHRJT5491-46-93 14:59:00 Test Item Value Reference Range Interpretation Comments Monocytes # (test code = Monocytes #) 619 200-950 [place] 139731-11-03 14:59:00 Test Item Value Reference Range Interpretation Comments Eosinophils # (test code = Eosinophils 164 15-500 #) [facility] CentralPqujkmcJBRUKPPFKQ3528-91-29 14:59:00 Test Item Value Reference Range Interpretation Comments Basophils # (test code 82 See_Comment [Aut omated message] The = Basophils #) system which generated this result tra nsmitted reference range : <=200. The reference r arelis was not used to int erpret this result as normal/abnormal . [facility] CampusCpwmexaVSERQFHYJV4379-28-76 14:59:00 Test Item Value Reference Range Interpretation Comments Segs (test code = Segs) 74.1 [facility] CentralSxpbvjyPUYDYVGLEH1376-18-96 14:59:00 Test Item Value Reference Range Interpretation Comments Lymphocytes (test code = Lymphocytes) 16.4 [place] 139731-11-03 14:59:00 Test Item Value Reference Range Interpretation Comments Monocytes (test code = Monocytes) 6.8 [facility] CentralEydexfzNWMFVHKVNY0511-90-16 14:59:00 Test Item Value Reference Range Interpretation Comments Eosinophils (test code = Eosinophils) 1.8 [facility] CentralDkdrxevMDFOQQLZTX6829-10-15 14:59:00 Test Item Value Reference Range Interpretation Comments Basophils (test code = Basophils) 0.9 [facility] [id number] 14:59:00 Test Item Value Reference Range Interpretation Comments Result 2 (Urine Culture) See Result Comment (test code = Result 2 (Urine Culture)) [facility] [id number] 14:59:00 Test Item Value Reference Range Interpretation Comments Glucose Lvl (test code = Glucose Lvl) 101 65-99 [facility] [id number] 14:59:00 Test Item Value Reference Range Interpretation Comments BUN (test code = BUN) 9 7-25 [facility] [id number] 14:59:00 Test Item Value Reference Range Interpretation Comments Creatinine Lvl (test code = Creatinine 0.72 0.50-0.99 Lvl) [facility] [id number] 14:59:00 Test Item Value Reference Range Interpretation Comments eGFR NON-AFR. ARMENIAN (test code = 86 eGFR NON-AFR. ARMENIAN) [facility] [id number] 14:59:00 Test Item Value Reference Range Interpretation Comments eGFR (test code = eGFR 100 ) [facility] [id number] 14:59:00 Test Item Value Reference Range Interpretation Comments B/C Ratio (test code = B/C NOT APPLICABLE 12-13 Ratio) [place] 853501-11-03 14:59:00 Test Item Value Reference Range Interpretation Comments Sodium Lvl (test code = Sodium Lvl) 139 135-146 [place] 853501-11-03 14:59:00 Test Item Value Reference Range Interpretation Comments Potassium Lvl (test code = Potassium 4.2 3.5-5.3 Lvl) [place] 853501-11-03 14:59:00 Test Item Value Reference Range Interpretation Comments Chloride Lvl (test code = Chloride Lvl) 108 98-110 [place] 853501-11-03 14:59:00 Test Item Value Reference Range Interpretation Comments CO2 (test code = CO2) 23 20-32 [place] 853501-11-03 14:59:00 Test Item Value Reference Range Interpretation Comments Calcium Lvl (test code = Calcium Lvl) 9.6 8.6-10.4 [place] 139731-11-03 14:59:00 Test Item Value Reference Range Interpretation Comments WBC X 10x3 (test code = WBC X 10x3) 9.1 3.8-10.8 [place] 139731-11-03 14:59:00 Test Item Value Reference Range Interpretation Comments RBC X 10x6 (test code = RBC X 10x6) 3.70 3.80-5.10 [place] 139731-11-03 14:59:00 Test Item Value Reference Range Interpretation Comments Hgb (test code = Hgb) 10.2 11.7-15.5 [place] [address]-11-03 14:59:00 Test Item Value Reference Range Interpretation Comments Hct (test code = Hct) 33.2 35.0-45.0 [place] [address]-11-03 14:59:00 Test Item Value Reference Range Interpretation Comments MCV (test code = MCV) 89.7 80.0-100.0 [place] [address]-11-03 14:59:00 Test Item Value Reference Range Interpretation Comments MCH (test code = MCH) 27.6 pg 27.0-33.0 [place] 139731-11-03 14:59:00 Test Item Value Reference Range Interpretation Comments MCHC (test code = MCHC) 30.7 32.0-36.0 [place] 139731-11-03 14:59:00 Test Item Value Reference Range Interpretation Comments RDW (test code = RDW) 15.0 11.0-15.0 [place] [address]-11-03 14:59:00 Test Item Value Reference Range Interpretation Comments Platelet (test code = Platelet) 727 140-400 [place] 139731-11-03 14:59:00 Test Item Value Reference Range Interpretation Comments MPV (test code = MPV) 11.0 7.5-12.5 [place] 139731-11-03 14:59:00 Test Item Value Reference Range Interpretation Comments Neutrophils # (test code = Neutrophils 6743 6711-6176 #) [facility]xqvguSXDRVVCQKO7533-35-45 14:59:00 Test Item Value Reference Range Interpretation Comments Lymphocytes # (test code = Lymphocytes 9937 261-7651 #) [facility] CentralMooorgwZWYVUMMGHN7742-71-41 14:59:00 Test Item Value Reference Range Interpretation Comments Monocytes # (test code = Monocytes #) 619 200-950 [place] 139731-11-03 14:59:00 Test Item Value Reference Range Interpretation Comments Eosinophils # (test code = Eosinophils 164 15-500 #) [facility] CentralStxuawnNNEBBYKRNP1507-32-64 14:59:00 Test Item Value Reference Range Interpretation Comments Basophils # (test code 82 See_Comment [Aut omated message] The = Basophils #) system which generated this result tra nsmitted reference range : <=200. The reference r arelis was not used to int erpret this result as normal/abnormal . [facility] CentralOajegrhCJQNXHEGBX9643-03-29 14:59:00 Test Item Value Reference Range Interpretation Comments Segs (test code = Segs) 74.1 [place] 139731-11-03 14:59:00 Test Item Value Reference Range Interpretation Comments Lymphocytes (test code = Lymphocytes) 16.4 [place] [address]-11-03 14:59:00 Test Item Value Reference Range Interpretation Comments Monocytes (test code = Monocytes) 6.8 [place] [address]-11-03 14:59:00 Test Item Value Reference Range Interpretation Comments Eosinophils (test code = Eosinophils) 1.8 [place] 139731-11-03 14:59:00 Test Item Value Reference Range Interpretation Comments Basophils (test code = Basophils) 0.9 [facility] [id number] 14:59:00 Test Item Value Reference Range Interpretation Comments Result 2 (Urine Culture) See Result Comment (test code = Result 2 (Urine Culture)) [place] 853501-11-03 14:59:00 Test Item Value Reference Range Interpretation Comments Glucose Lvl (test code = Glucose Lvl) 101 65-99 [place] 853501-11-03 14:59:00 Test Item Value Reference Range Interpretation Comments BUN (test code = BUN) 9 7-25 [place] 853501-11-03 14:59:00 Test Item Value Reference Range Interpretation Comments Creatinine Lvl (test code = Creatinine 0.72 0.50-0.99 Lvl) [place] 853501-11-03 14:59:00 Test Item Value Reference Range Interpretation Comments eGFR NON-AFR. ARMENIAN (test code = 86 eGFR NON-AFR. ARMENIAN) [facility]2021-11-03 14:59:00 Test Item Value Reference Range Interpretation Comments eGFR (test code = eGFR 100 ) [facility]2021-11-03 14:59:00 Test Item Value Reference Range Interpretation Comments B/C Ratio (test code = B/C NOT APPLICABLE 6-22 Ratio) [facility]2021-11-03 14:59:00 Test Item Value Reference Range Interpretation Comments Sodium Lvl (test code = Sodium Lvl) 139 135-146 [facility]2021-11-03 14:59:00 Test Item Value Reference Range Interpretation Comments Potassium Lvl (test code = Potassium 4.2 3.5-5.3 Lvl) [place] 853501-11-03 14:59:00 Test Item Value Reference Range Interpretation Comments Chloride Lvl (test code = Chloride Lvl) 108 98-110 [facility]2021-11-03 14:59:00 Test Item Value Reference Range Interpretation Comments CO2 (test code = CO2) 23 20-32 [place] 853501-11-03 14:59:00 Test Item Value Reference Range Interpretation Comments Calcium Lvl (test code = Calcium Lvl) 9.6 8.6-10.4 [facility]lj[facility]fsrWRDGLAESLZ2765-15-81 14:59:00 Test Item Value Reference Range Interpretation Comments WBC X 10x3 (test code = WBC X 10x3) 9.1 3.8-10.8 [place] 139731-11-03 14:59:00 Test Item Value Reference Range Interpretation Comments RBC X 10x6 (test code = RBC X 10x6) 3.70 3.80-5.10 [place] 139731-11-03 14:59:00 Test Item Value Reference Range Interpretation Comments Hgb (test code = Hgb) 10.2 11.7-15.5 [place] [address]-11-03 14:59:00 Test Item Value Reference Range Interpretation Comments Hct (test code = Hct) 33.2 35.0-45.0 [place] 139731-11-03 14:59:00 Test Item Value Reference Range Interpretation Comments MCV (test code = MCV) 89.7 80.0-100.0 [place] 139731-11-03 14:59:00 Test Item Value Reference Range Interpretation Comments MCH (test code = MCH) 27.6 pg 27.0-33.0 [place] 139731-11-03 14:59:00 Test Item Value Reference Range Interpretation Comments MCHC (test code = MCHC) 30.7 32.0-36.0 [facility] CentralXtrdzfgIAZEVJSXVM8421-57-04 14:59:00 Test Item Value Reference Range Interpretation Comments RDW (test code = RDW) 15.0 11.0-15.0 [facility] CentralDgywxpwNJPKDQBJUO4456-66-50 14:59:00 Test Item Value Reference Range Interpretation Comments Platelet (test code = Platelet) 727 140-400 [facility] CentralGiiwfmvWDXIHLLUYG6901-78-80 14:59:00 Test Item Value Reference Range Interpretation Comments MPV (test code = MPV) 11.0 7.5-12.5 [place] 139731-11-03 14:59:00 Test Item Value Reference Range Interpretation Comments Neutrophils # (test code = Neutrophils 3043 1749-6123 #) [facility] CentralGphsqroLTQYAEEDGQ0388-39-43 14:59:00 Test Item Value Reference Range Interpretation Comments Lymphocytes # (test code = Lymphocytes 4713 334-4831 #) [facility] CentralPdlelonATYKSVKDIF2775-68-01 14:59:00 Test Item Value Reference Range Interpretation Comments Monocytes # (test code = Monocytes #) 619 200-950 [facility]borTeehnboWKOVABXFPG3403-66-63 14:59:00 Test Item Value Reference Range Interpretation Comments Eosinophils # (test code = Eosinophils 164 15-500 #) [facility] CentralWlrtpwnSDCFNJRGDQ8741-72-33 14:59:00 Test Item Value Reference Range Interpretation Comments Basophils # (test code 82 See_Comment [Aut omated message] The = Basophils #) system which generated this result tra nsmitted reference range : <=200. The reference r arelis was not used to int erpret this result as normal/abnormal . [facility] CentralKjcvrupSEFIVBRSPH4772-06-69 14:59:00 Test Item Value Reference Range Interpretation Comments Segs (test code = Segs) 74.1 [facility] CentralWlyvdjzHPPXAPSIRW0400-13-71 14:59:00 Test Item Value Reference Range Interpretation Comments Lymphocytes (test code = Lymphocytes) 16.4 [facility] CentralKpnlfbhDQNOUVTQTM5223-12-84 14:59:00 Test Item Value Reference Range Interpretation Comments Monocytes (test code = Monocytes) 6.8 [facility] CentralNsdnnhdMRTLPJHCCA0226-78-15 14:59:00 Test Item Value Reference Range Interpretation Comments Eosinophils (test code = Eosinophils) 1.8 [facility] CentralReegtxrBXNDDBXLER4488-06-83 14:59:00 Test Item Value Reference Range Interpretation Comments Basophils (test code = Basophils) 0.9 [facility] [id number] 14:59:00 Test Item Value Reference Range Interpretation Comments Result 2 (Urine Culture) See Result Comment (test code = Result 2 (Urine Culture)) [facility] UIQUO6431-68-12 14:59:00 Test Item Value Reference Range Interpretation Comments Glucose Lvl (test code = Glucose Lvl) 101 65-99 [facility] [id number] 14:59:00 Test Item Value Reference Range Interpretation Comments BUN (test code = BUN) 9 7-25 [facility]2021-11-03 14:59:00 Test Item Value Reference Range Interpretation Comments Creatinine Lvl (test code = Creatinine 0.72 0.50-0.99 Lvl) [facility]2021-11-03 14:59:00 Test Item Value Reference Range Interpretation Comments eGFR NON-AFR. ARMENIAN (test code = 86 eGFR NON-AFR. ARMENIAN) [place] 853501-11-03 14:59:00 Test Item Value Reference Range Interpretation Comments eGFR (test code = eGFR 100 ) [place] 853501-11-03 14:59:00 Test Item Value Reference Range Interpretation Comments B/C Ratio (test code = B/C NOT APPLICABLE 6-22 Ratio) [place] 853501-11-03 14:59:00 Test Item Value Reference Range Interpretation Comments Sodium Lvl (test code = Sodium Lvl) 139 135-146 [place] 853501-11-03 14:59:00 Test Item Value Reference Range Interpretation Comments Potassium Lvl (test code = Potassium 4.2 3.5-5.3 Lvl) [place] 853501-11-03 14:59:00 Test Item Value Reference Range Interpretation Comments Chloride Lvl (test code = Chloride Lvl) 108 98-110 [place] 853501-11-03 14:59:00 Test Item Value Reference Range Interpretation Comments CO2 (test code = CO2) 23 20-32 [place] 853501-11-03 14:59:00 Test Item Value Reference Range Interpretation Comments Calcium Lvl (test code = Calcium Lvl) 9.6 8.6-10.4 [place] 139731-11-03 14:59:00 Test Item Value Reference Range Interpretation Comments WBC X 10x3 (test code = WBC X 10x3) 9.1 3.8-10.8 [place] 139731-11-03 14:59:00 Test Item Value Reference Range Interpretation Comments RBC X 10x6 (test code = RBC X 10x6) 3.70 3.80-5.10 [place] 139731-11-03 14:59:00 Test Item Value Reference Range Interpretation Comments Hgb (test code = Hgb) 10.2 11.7-15.5 [place] [address]-11-03 14:59:00 Test Item Value Reference Range Interpretation Comments Hct (test code = Hct) 33.2 35.0-45.0 [place] 139731-11-03 14:59:00 Test Item Value Reference Range Interpretation Comments MCV (test code = MCV) 89.7 80.0-100.0 [place] [address]-11-03 14:59:00 Test Item Value Reference Range Interpretation Comments MCH (test code = MCH) 27.6 pg 27.0-33.0 [facility] CentralMrrkjnwUDUZDNUQKW3419-78-74 14:59:00 Test Item Value Reference Range Interpretation Comments MCHC (test code = MCHC) 30.7 32.0-36.0 [facility] CentralHpsvwglWUNUNDMAVM0425-67-71 14:59:00 Test Item Value Reference Range Interpretation Comments RDW (test code = RDW) 15.0 11.0-15.0 [place] 139731-11-03 14:59:00 Test Item Value Reference Range Interpretation Comments Platelet (test code = Platelet) 727 140-400 [facility] CentralOkzptnzKEOPKOMVII3946-34-26 14:59:00 Test Item Value Reference Range Interpretation Comments MPV (test code = MPV) 11.0 7.5-12.5 [facility] CentralFzqbfepEYIZLISXGP7628-86-73 14:59:00 Test Item Value Reference Range Interpretation Comments Neutrophils # (test code = Neutrophils 6743 7245-2921 #) [facility] CentralRjfvgiyNQJHGMEAGW9388-56-52 14:59:00 Test Item Value Reference Range Interpretation Comments Lymphocytes # (test code = Lymphocytes 0974 224-1260 #) [facility] CentralNohijlvWWIPMMBQKS3527-53-52 14:59:00 Test Item Value Reference Range Interpretation Comments Monocytes # (test code = Monocytes #) 619 200-950 [facility] CentralDtauprzXYMYQUIKWR7038-24-61 14:59:00 Test Item Value Reference Range Interpretation Comments Eosinophils # (test code = Eosinophils 164 15-500 #) [facility] CentralZygzpmyULHKKNNKUN2589-48-75 14:59:00 Test Item Value Reference Range Interpretation Comments Basophils # (test code 82 See_Comment [Aut omated message] The = Basophils #) system which generated this result tra nsmitted reference range : <=200. The reference r arelis was not used to int erpret this result as normal/abnormal . [facility] CentralVjbblggODBWFUWMRE2293-95-21 14:59:00 Test Item Value Reference Range Interpretation Comments Segs (test code = Segs) 74.1 [place] 139731-11-03 14:59:00 Test Item Value Reference Range Interpretation Comments Lymphocytes (test code = Lymphocytes) 16.4 [place] 139731-11-03 14:59:00 Test Item Value Reference Range Interpretation Comments Monocytes (test code = Monocytes) 6.8 [place] 139731-11-03 14:59:00 Test Item Value Reference Range Interpretation Comments Eosinophils (test code = Eosinophils) 1.8 [place] 139731-11-03 14:59:00 Test Item Value Reference Range Interpretation Comments Basophils (test code = Basophils) 0.9 [facility] [id number] 14:59:00 Test Item Value Reference Range Interpretation Comments Result 2 (Urine Culture) See Result Comment (test code = Result 2 (Urine Culture)) [place] 853501-11-03 14:59:00 Test Item Value Reference Range Interpretation Comments Glucose Lvl (test code = Glucose Lvl) 101 65-99 [place] 853501-11-03 14:59:00 Test Item Value Reference Range Interpretation Comments BUN (test code = BUN) 9 7-25 [place] 853501-11-03 14:59:00 Test Item Value Reference Range Interpretation Comments Creatinine Lvl (test code = Creatinine 0.72 0.50-0.99 Lvl) [place] 853501-11-03 14:59:00 Test Item Value Reference Range Interpretation Comments eGFR NON-AFR. ARMENIAN (test code = 86 eGFR NON-AFR. ARMENIAN) [facility]2021-11-03 14:59:00 Test Item Value Reference Range Interpretation Comments eGFR (test code = eGFR 100 ) [place]3501-11-03 14:59:00 Test Item Value Reference Range Interpretation Comments B/C Ratio (test code = B/C NOT APPLICABLE 622 Ratio) [place]3501-11-03 14:59:00 Test Item Value Reference Range Interpretation Comments Sodium Lvl (test code = Sodium Lvl) 139 135-146 [facility]2021-11-03 14:59:00 Test Item Value Reference Range Interpretation Comments Potassium Lvl (test code = Potassium 4.2 3.5-5.3 Lvl) [place] [address]3501-11-03 14:59:00 Test Item Value Reference Range Interpretation Comments Chloride Lvl (test code = Chloride Lvl) 108 98-110 [place] 853501-11-03 14:59:00 Test Item Value Reference Range Interpretation Comments CO2 (test code = CO2) 23 20-32 [place] 853501-11-03 14:59:00 Test Item Value Reference Range Interpretation Comments Calcium Lvl (test code = Calcium Lvl) 9.6 8.6-10.4 [place] [address]-11-03 14:59:00 Test Item Value Reference Range Interpretation Comments WBC X 10x3 (test code = WBC X 10x3) 9.1 3.8-10.8 [place] [address]-11-03 14:59:00 Test Item Value Reference Range Interpretation Comments RBC X 10x6 (test code = RBC X 10x6) 3.70 3.80-5.10 [place] 853501-11-03 14:59:00 Test Item Value Reference Range Interpretation Comments Glucose Lvl (test code = Glucose Lvl) 101 65-99 [place] 853501-11-03 14:59:00 Test Item Value Reference Range Interpretation Comments BUN (test code = BUN) 9 7-25 [place] 853501-11-03 14:59:00 Test Item Value Reference Range Interpretation Comments Creatinine Lvl (test code = Creatinine 0.72 0.50-0.99 Lvl) [place] 853501-11-03 14:59:00 Test Item Value Reference Range Interpretation Comments eGFR NON-AFR. ARMENIAN (test code = 86 eGFR NON-AFR. ARMENIAN) [place] 853501-11-03 14:59:00 Test Item Value Reference Range Interpretation Comments eGFR (test code = eGFR 100 ) [place] 853501-11-03 14:59:00 Test Item Value Reference Range Interpretation Comments B/C Ratio (test code = B/C NOT APPLICABLE 6-22 Ratio) [place] [address]-11-03 14:59:00 Test Item Value Reference Range Interpretation Comments Hgb (test code = Hgb) 10.2 11.7-15.5 [place] 853501-11-03 14:59:00 Test Item Value Reference Range Interpretation Comments Sodium Lvl (test code = Sodium Lvl) 139 135-146 [place] 853501-11-03 14:59:00 Test Item Value Reference Range Interpretation Comments Potassium Lvl (test code = Potassium 4.2 3.5-5.3 Lvl) [place] 853501-11-03 14:59:00 Test Item Value Reference Range Interpretation Comments Chloride Lvl (test code = Chloride Lvl) 108 98-110 [place] 853501-11-03 14:59:00 Test Item Value Reference Range Interpretation Comments CO2 (test code = CO2) 23 20-32 [place] 853501-11-03 14:59:00 Test Item Value Reference Range Interpretation Comments Calcium Lvl (test code = Calcium Lvl) 9.6 8.6-10.4 [place] [address]-11-03 14:59:00 Test Item Value Reference Range Interpretation Comments WBC X 10x3 (test code = WBC X 10x3) 9.1 3.8-10.8 [place] [address]-11-03 14:59:00 Test Item Value Reference Range Interpretation Comments RBC X 10x6 (test code = RBC X 10x6) 3.70 3.80-5.10 [place] [address]-11-03 14:59:00 Test Item Value Reference Range Interpretation Comments Hgb (test code = Hgb) 10.2 11.7-15.5 [place] [address]-11-03 14:59:00 Test Item Value Reference Range Interpretation Comments Hct (test code = Hct) 33.2 35.0-45.0 [place] [address]-11-03 14:59:00 Test Item Value Reference Range Interpretation Comments MCV (test code = MCV) 89.7 80.0-100.0 [place] [address]-11-03 14:59:00 Test Item Value Reference Range Interpretation Comments Hct (test code = Hct) 33.2 35.0-45.0 [place] [address]-11-03 14:59:00 Test Item Value Reference Range Interpretation Comments MCH (test code = MCH) 27.6 pg 27.0-33.0 [place] [address]-11-03 14:59:00 Test Item Value Reference Range Interpretation Comments MCHC (test code = MCHC) 30.7 32.0-36.0 [place] [address]-11-03 14:59:00 Test Item Value Reference Range Interpretation Comments RDW (test code = RDW) 15.0 11.0-15.0 [facility] CentralYrdvkdcUKVPSONHLT0846-95-49 14:59:00 Test Item Value Reference Range Interpretation Comments Platelet (test code = Platelet) 727 140-400 [facility] CentralAdnbbzaYWNVBGQOKE3431-97-05 14:59:00 Test Item Value Reference Range Interpretation Comments MPV (test code = MPV) 11.0 7.5-12.5 [place] 139731-11-03 14:59:00 Test Item Value Reference Range Interpretation Comments Neutrophils # (test code = Neutrophils 6743 0607-9117 #) [facility] CentralJsusvcpELFDVCZCJV0305-85-49 14:59:00 Test Item Value Reference Range Interpretation Comments Lymphocytes # (test code = Lymphocytes [phone] #) [place] 139731-11-03 14:59:00 Test Item Value Reference Range Interpretation Comments Monocytes # (test code = Monocytes #) 619 200-950 [place] 139731-11-03 14:59:00 Test Item Value Reference Range Interpretation Comments Eosinophils # (test code = Eosinophils 164 15-500 #) [facility] CentralIwcejtiGCLAUHFNZY1314-43-00 14:59:00 Test Item Value Reference Range Interpretation Comments Basophils # (test code 82 See_Comment [Aut omated message] The = Basophils #) system which generated this result tra nsmitted reference range : <=200. The reference r arelis was not used to int erpret this result as normal/abnormal . [facility] CentralSxoapzjLQUTETJXHZ6017-17-41 14:59:00 Test Item Value Reference Range Interpretation Comments MCV (test code = MCV) 89.7 80.0-100.0 [place] 139731-11-03 14:59:00 Test Item Value Reference Range Interpretation Comments Segs (test code = Segs) 74.1 [place] 139731-11-03 14:59:00 Test Item Value Reference Range Interpretation Comments Lymphocytes (test code = Lymphocytes) 16.4 [place] 139731-11-03 14:59:00 Test Item Value Reference Range Interpretation Comments Monocytes (test code = Monocytes) 6.8 [place] 139731-11-03 14:59:00 Test Item Value Reference Range Interpretation Comments Eosinophils (test code = Eosinophils) 1.8 [place] [address]-11-03 14:59:00 Test Item Value Reference Range Interpretation Comments Basophils (test code = Basophils) 0.9 [facility] [id number] 14:59:00 Test Item Value Reference Range Interpretation Comments Result 2 (Urine Culture) See Result Comment (test code = Result 2 (Urine Culture)) [facility] CentralLrauvukGIQPLZFPNG4144-49-24 14:59:00 Test Item Value Reference Range Interpretation Comments MCH (test code = MCH) 27.6 pg 27.0-33.0 [facility]RuurmwgIKMYOWCBLF1140-05-75 14:59:00 Test Item Value Reference Range Interpretation Comments MCHC (test code = MCHC) 30.7 32.0-36.0 [facility] CentralCqkyzuwDTTVYBYPKW4774-06-09 14:59:00 Test Item Value Reference Range Interpretation Comments RDW (test code = RDW) 15.0 11.0-15.0 [facility] CentralWdztdlySAGRAMVRXM8789-64-70 14:59:00 Test Item Value Reference Range Interpretation Comments Platelet (test code = Platelet) 727 140-400 [facility] CentralWwqinydEOGIZQTAQI6583-70-41 14:59:00 Test Item Value Reference Range Interpretation Comments MPV (test code = MPV) 11.0 7.5-12.5 [facility] CentralAxeuhvkJBNKLBGKWW2365-94-53 14:59:00 Test Item Value Reference Range Interpretation Comments Neutrophils # (test code = Neutrophils 6743 1595-7934 #) [facility] CentralTnhzaltQFSBMMQGUF4825-26-65 14:59:00 Test Item Value Reference Range Interpretation Comments Lymphocytes # (test code = Lymphocytes [phone] #) [facility] CentralLtejluyIFOHKLXBGG1914-04-88 14:59:00 Test Item Value Reference Range Interpretation Comments Monocytes # (test code = Monocytes #) 619 200-950 [facility] CentralQtfvvnlNRMTXHEYFL7371-58-55 14:59:00 Test Item Value Reference Range Interpretation Comments Eosinophils # (test code = Eosinophils 164 15-500 #) [facility] CentralLrazqttKHHMLZVZFI2789-91-27 14:59:00 Test Item Value Reference Range Interpretation Comments Basophils # (test code 82 See_Comment [Aut omated message] The = Basophils #) system which generated this result tra nsmitted reference range : <=200. The reference r arelis was not used to int erpret this result as normal/abnormal . [facility] CentralMziqohmTFSDWZYMEL0771-79-40 14:59:00 Test Item Value Reference Range Interpretation Comments Segs (test code = Segs) 74.1 [place] 139731-11-03 14:59:00 Test Item Value Reference Range Interpretation Comments Lymphocytes (test code = Lymphocytes) 16.4 [place] 139731-11-03 14:59:00 Test Item Value Reference Range Interpretation Comments Monocytes (test code = Monocytes) 6.8 [place] 139731-11-03 14:59:00 Test Item Value Reference Range Interpretation Comments Eosinophils (test code = Eosinophils) 1.8 [facility] CentralIgehoggRSBFWKOAWR3432-54-65 14:59:00 Test Item Value Reference Range Interpretation Comments Basophils (test code = Basophils) 0.9 [facility] [id number] 14:59:00 Test Item Value Reference Range Interpretation Comments Result 2 (Urine Culture) See Result Comment (test code = Result 2 (Urine Culture)) [facility] [facility] 14:59:00 Test Item Value Reference Range Interpretation Comments Glucose Lvl (test code = Glucose Lvl) 101 65-99 [facility]2021-11-03 14:59:00 Test Item Value Reference Range Interpretation Comments BUN (test code = BUN) 9 7-25 [facility]2021-11-03 14:59:00 Test Item Value Reference Range Interpretation Comments Creatinine Lvl (test code = Creatinine 0.72 0.50-0.99 Lvl) [facility]2021-11-03 14:59:00 Test Item Value Reference Range Interpretation Comments eGFR NON-AFR. ARMENIAN (test code = 86 eGFR NON-AFR. ARMENIAN) [facility]2021-11-03 14:59:00 Test Item Value Reference Range Interpretation Comments eGFR (test code = eGFR 100 ) [facility]2021-11-03 14:59:00 Test Item Value Reference Range Interpretation Comments B/C Ratio (test code = B/C NOT APPLICABLE 622 Ratio) [facility]2021-11-03 14:59:00 Test Item Value Reference Range Interpretation Comments Sodium Lvl (test code = Sodium Lvl) 139 135-146 [facility]2021-11-03 14:59:00 Test Item Value Reference Range Interpretation Comments Potassium Lvl (test code = Potassium 4.2 3.5-5.3 Lvl) [place]3501-11-03 14:59:00 Test Item Value Reference Range Interpretation Comments Chloride Lvl (test code = Chloride Lvl) 108 98-110 [place] 853501-11-03 14:59:00 Test Item Value Reference Range Interpretation Comments CO2 (test code = CO2) 23 20-32 [place] [address]-11-03 14:59:00 Test Item Value Reference Range Interpretation Comments Calcium Lvl (test code = Calcium Lvl) 9.6 8.6-10.4 [place] [address]-11-03 14:59:00 Test Item Value Reference Range Interpretation Comments WBC X 10x3 (test code = WBC X 10x3) 9.1 3.8-10.8 [place] 139731-11-03 14:59:00 Test Item Value Reference Range Interpretation Comments RBC X 10x6 (test code = RBC X 10x6) 3.70 3.80-5.10 [place] [address]-11-03 14:59:00 Test Item Value Reference Range Interpretation Comments Hgb (test code = Hgb) 10.2 11.7-15.5 [place] 139731-11-03 14:59:00 Test Item Value Reference Range Interpretation Comments Hct (test code = Hct) 33.2 35.0-45.0 [place] 139731-11-03 14:59:00 Test Item Value Reference Range Interpretation Comments MCV (test code = MCV) 89.7 80.0-100.0 [place] [address]-11-03 14:59:00 Test Item Value Reference Range Interpretation Comments MCH (test code = MCH) 27.6 pg 27.0-33.0 [place] [address]-11-03 14:59:00 Test Item Value Reference Range Interpretation Comments MCHC (test code = MCHC) 30.7 32.0-36.0 [place] [address]-11-03 14:59:00 Test Item Value Reference Range Interpretation Comments RDW (test code = RDW) 15.0 11.0-15.0 [place] [address]-11-03 14:59:00 Test Item Value Reference Range Interpretation Comments Platelet (test code = Platelet) 727 140-400 [facility]liszarXBNUKBGSFD1359-59-41 14:59:00 Test Item Value Reference Range Interpretation Comments MPV (test code = MPV) 11.0 7.5-12.5 [facility]SthondbWBACKLXWWO5510-05-84 14:59:00 Test Item Value Reference Range Interpretation Comments Neutrophils # (test code = Neutrophils 6743 1078-1090 #) [facility]borTvapderQARUZLGMMO6656-03-83 14:59:00 Test Item Value Reference Range Interpretation Comments Lymphocytes # (test code = Lymphocytes 0384 755-1488 #) [facility]SjvpxqgYRHYSDWIOG8004-48-82 14:59:00 Test Item Value Reference Range Interpretation Comments Monocytes # (test code = Monocytes #) 619 200-950 [facility] CentralIanyzqhKBWTISFZRS9568-63-57 14:59:00 Test Item Value Reference Range Interpretation Comments Eosinophils # (test code = Eosinophils 164 15-500 #) [facility] CentralPhdqvjrMVHRFYSINF8182-55-87 14:59:00 Test Item Value Reference Range Interpretation Comments Basophils # (test code 82 See_Comment [Aut omated message] The = Basophils #) system which generated this result tra nsmitted reference range : <=200. The reference r arelis was not used to int erpret this result as normal/abnormal . [facility] CentralVsumkdbNJUNPTUHHV9129-30-49 14:59:00 Test Item Value Reference Range Interpretation Comments Segs (test code = Segs) 74.1 [facility] CentralJhettovRYQVAXMMTK8765-20-34 14:59:00 Test Item Value Reference Range Interpretation Comments Lymphocytes (test code = Lymphocytes) 16.4 [facility] CentralGnhgvwmKTZHLHMEBG9863-91-28 14:59:00 Test Item Value Reference Range Interpretation Comments Monocytes (test code = Monocytes) 6.8 [facility] CentralHknmixyEWTCONYNQE3804-53-73 14:59:00 Test Item Value Reference Range Interpretation Comments Eosinophils (test code = Eosinophils) 1.8 [facility] CentralQzzchviLPOFNJLQSW8575-92-57 14:59:00 Test Item Value Reference Range Interpretation Comments Basophils (test code = Basophils) 0.9 [facility] WYRFZKM1097-18-22 14:59:00 Test Item Value Reference Range Interpretation Comments Result 2 (Urine Culture) See Result Comment (test code = Result 2 (Urine Culture)) [place] 853501-11-03 14:59:00 Test Item Value Reference Range Interpretation Comments Glucose Lvl (test code = Glucose Lvl) 101 65-99 [place] [address]-11-03 14:59:00 Test Item Value Reference Range Interpretation Comments BUN (test code = BUN) 9 7-25 [place] [address]-11-03 14:59:00 Test Item Value Reference Range Interpretation Comments Creatinine Lvl (test code = Creatinine 0.72 0.50-0.99 Lvl) [place] [address]-11-03 14:59:00 Test Item Value Reference Range Interpretation Comments eGFR NON-AFR. ARMENIAN (test code = 86 eGFR NON-AFR. ARMENIAN) [place] 853501-11-03 14:59:00 Test Item Value Reference Range Interpretation Comments eGFR (test code = eGFR 100 ) [address]11-03 14:59:00 Test Item Value Reference Range Interpretation Comments B/C Ratio (test code = B/C NOT APPLICABLE 6-22 Ratio) [place] 853501-11-03 14:59:00 Test Item Value Reference Range Interpretation Comments Sodium Lvl (test code = Sodium Lvl) 139 135-146 [place] 853501-11-03 14:59:00 Test Item Value Reference Range Interpretation Comments Potassium Lvl (test code = Potassium 4.2 3.5-5.3 Lvl) [place] 853501-11-03 14:59:00 Test Item Value Reference Range Interpretation Comments Chloride Lvl (test code = Chloride Lvl) 108 98-110 [place] 853501-11-03 14:59:00 Test Item Value Reference Range Interpretation Comments CO2 (test code = CO2) 23 20-32 [place] 853501-11-03 14:59:00 Test Item Value Reference Range Interpretation Comments Calcium Lvl (test code = Calcium Lvl) 9.6 8.6-10.4 [place] 139731-11-03 14:59:00 Test Item Value Reference Range Interpretation Comments WBC X 10x3 (test code = WBC X 10x3) 9.1 3.8-10.8 [place] 139731-11-03 14:59:00 Test Item Value Reference Range Interpretation Comments RBC X 10x6 (test code = RBC X 10x6) 3.70 3.80-5.10 [facility] CentralEsvufvdVUCKXHVUES2011-17-68 14:59:00 Test Item Value Reference Range Interpretation Comments Hgb (test code = Hgb) 10.2 11.7-15.5 [facility] CentralSgfdcyzLFIXGFTWOR2789-42-34 14:59:00 Test Item Value Reference Range Interpretation Comments Hct (test code = Hct) 33.2 35.0-45.0 [facility] CentralJgtnnddBDTDGDOTNW4538-82-33 14:59:00 Test Item Value Reference Range Interpretation Comments MCV (test code = MCV) 89.7 80.0-100.0 [place] 139731-11-03 14:59:00 Test Item Value Reference Range Interpretation Comments MCH (test code = MCH) 27.6 pg 27.0-33.0 [facility] CentralTripjknJLEXEKUOBA3479-44-68 14:59:00 Test Item Value Reference Range Interpretation Comments MCHC (test code = MCHC) 30.7 32.0-36.0 [facility] CentralOvrzivxSTYGTBMUBD0102-72-95 14:59:00 Test Item Value Reference Range Interpretation Comments RDW (test code = RDW) 15.0 11.0-15.0 [facility] CentralEamvrpaIYXUFLVQNV4765-85-29 14:59:00 Test Item Value Reference Range Interpretation Comments Platelet (test code = Platelet) 727 140-400 [facility] CentralPmhsugdNKGRDNPHKE0830-31-31 14:59:00 Test Item Value Reference Range Interpretation Comments MPV (test code = MPV) 11.0 7.5-12.5 [facility] CentralGedoqzhDVFSGLQAPP2401-36-56 14:59:00 Test Item Value Reference Range Interpretation Comments Neutrophils # (test code = Neutrophils 6743 7413-7765 #) [facility] CentralEzmanxcRXXZTUVBDW9268-40-48 14:59:00 Test Item Value Reference Range Interpretation Comments Lymphocytes # (test code = Lymphocytes [phone] #) [facility] CentralBwjcbyvAXAFNNBCHP2498-49-19 14:59:00 Test Item Value Reference Range Interpretation Comments Monocytes # (test code = Monocytes #) 619 200-950 [facility] CentralRfxijvqGXWFEWVSBQ7571-55-34 14:59:00 Test Item Value Reference Range Interpretation Comments Eosinophils # (test code = Eosinophils 164 15-500 #) [facility] CentralAhbjsmjKJTQHCDEEM7240-48-52 14:59:00 Test Item Value Reference Range Interpretation Comments Basophils # (test code 82 See_Comment [Aut omated message] The = Basophils #) system which generated this result tra nsmitted reference range : <=200. The reference r arelis was not used to int erpret this result as normal/abnormal . [facility]NwqblztDTSFQGRDRP4210-73-41 14:59:00 Test Item Value Reference Range Interpretation Comments Segs (test code = Segs) 74.1 [facility] CentralEmidxanKQXTVZVAYV3114-41-66 14:59:00 Test Item Value Reference Range Interpretation Comments Lymphocytes (test code = Lymphocytes) 16.4 [place] 139731-11-03 14:59:00 Test Item Value Reference Range Interpretation Comments Monocytes (test code = Monocytes) 6.8 [facility] CentralYonvmytFFFMBKSHPA8966-46-30 14:59:00 Test Item Value Reference Range Interpretation Comments Eosinophils (test code = Eosinophils) 1.8 [facility] CampusLurofnbRPJOOFEOPC5467-04-55 14:59:00 Test Item Value Reference Range Interpretation Comments Basophils (test code = Basophils) 0.9 [facility] EAIMIPV9243-56-95 14:59:00 Test Item Value Reference Range Interpretation Comments Result 2 (Urine Culture) See Result Comment (test code = Result 2 (Urine Culture)) [facility] [id number] 14:59:00 Test Item Value Reference Range Interpretation Comments Glucose Lvl (test code = Glucose Lvl) 101 65-99 [facility] [id number] 14:59:00 Test Item Value Reference Range Interpretation Comments BUN (test code = BUN) 9 7-25 [facility] POOFF4704-17-12 14:59:00 Test Item Value Reference Range Interpretation Comments Creatinine Lvl (test code = Creatinine 0.72 0.50-0.99 Lvl) [facility] PJSHE5171-28-83 14:59:00 Test Item Value Reference Range Interpretation Comments eGFR NON-AFR. ARMENIAN (test code = 86 eGFR NON-AFR. ARMENIAN) [facility] [id number] 14:59:00 Test Item Value Reference Range Interpretation Comments eGFR (test code = eGFR 100 ) [facility] [id number] 14:59:00 Test Item Value Reference Range Interpretation Comments B/C Ratio (test code = B/C NOT APPLICABLE 6-22 Ratio) [place] 853501-11-03 14:59:00 Test Item Value Reference Range Interpretation Comments Sodium Lvl (test code = Sodium Lvl) 139 135-146 [place] 853501-11-03 14:59:00 Test Item Value Reference Range Interpretation Comments Potassium Lvl (test code = Potassium 4.2 3.5-5.3 Lvl) [place] 853501-11-03 14:59:00 Test Item Value Reference Range Interpretation Comments Chloride Lvl (test code = Chloride Lvl) 108 98-110 [place] 853501-11-03 14:59:00 Test Item Value Reference Range Interpretation Comments CO2 (test code = CO2) 23 20-32 [place] [address]-11-03 14:59:00 Test Item Value Reference Range Interpretation Comments Calcium Lvl (test code = Calcium Lvl) 9.6 8.6-10.4 [place] [address]-11-03 14:59:00 Test Item Value Reference Range Interpretation Comments WBC X 10x3 (test code = WBC X 10x3) 9.1 3.8-10.8 [place] [address]-11-03 14:59:00 Test Item Value Reference Range Interpretation Comments RBC X 10x6 (test code = RBC X 10x6) 3.70 3.80-5.10 [place] 139731-11-03 14:59:00 Test Item Value Reference Range Interpretation Comments Hgb (test code = Hgb) 10.2 11.7-15.5 [place] [address]-11-03 14:59:00 Test Item Value Reference Range Interpretation Comments Hct (test code = Hct) 33.2 35.0-45.0 [place] [address]-11-03 14:59:00 Test Item Value Reference Range Interpretation Comments MCV (test code = MCV) 89.7 80.0-100.0 [place] [address]-11-03 14:59:00 Test Item Value Reference Range Interpretation Comments MCH (test code = MCH) 27.6 pg 27.0-33.0 [place] [address]-11-03 14:59:00 Test Item Value Reference Range Interpretation Comments MCHC (test code = MCHC) 30.7 32.0-36.0 [place] 139731-11-03 14:59:00 Test Item Value Reference Range Interpretation Comments RDW (test code = RDW) 15.0 11.0-15.0 [place] [address]-11-03 14:59:00 Test Item Value Reference Range Interpretation Comments Platelet (test code = Platelet) 727 140-400 [place] 139731-11-03 14:59:00 Test Item Value Reference Range Interpretation Comments MPV (test code = MPV) 11.0 7.5-12.5 [place] 139731-11-03 14:59:00 Test Item Value Reference Range Interpretation Comments Neutrophils # (test code = Neutrophils 6743 3768-3424 #) [facility] CentralQpbgbjfXBYRVEKJGE5242-09-36 14:59:00 Test Item Value Reference Range Interpretation Comments Lymphocytes # (test code = Lymphocytes 0185 600-2844 #) [facility] CentralDxqyxfkVLXKJGTNHN7177-07-55 14:59:00 Test Item Value Reference Range Interpretation Comments Monocytes # (test code = Monocytes #) 619 200-950 [place] 139731-11-03 14:59:00 Test Item Value Reference Range Interpretation Comments Eosinophils # (test code = Eosinophils 164 15-500 #) [facility] CentralRuznlwwXWGAXPNPNB3852-96-05 14:59:00 Test Item Value Reference Range Interpretation Comments Basophils # (test code 82 See_Comment [Aut omated message] The = Basophils #) system which generated this result tra nsmitted reference range : <=200. The reference r arelis was not used to int erpret this result as normal/abnormal . [facility] CentralXixyvukSXPNFQCINB8687-96-70 14:59:00 Test Item Value Reference Range Interpretation Comments Segs (test code = Segs) 74.1 [place] 139731-11-03 14:59:00 Test Item Value Reference Range Interpretation Comments Lymphocytes (test code = Lymphocytes) 16.4 [place] 139731-11-03 14:59:00 Test Item Value Reference Range Interpretation Comments Monocytes (test code = Monocytes) 6.8 [place] 139731-11-03 14:59:00 Test Item Value Reference Range Interpretation Comments Eosinophils (test code = Eosinophils) 1.8 [facility] CampusXcqstnePMMJERCYJH8153-47-91 14:59:00 Test Item Value Reference Range Interpretation Comments Basophils (test code = Basophils) 0.9 [facility] CampusREFEREFORMERLY [facility] [id number] 14:59:00 Test Item Value Reference Range Interpretation Comments Result 2 (Urine Culture) See Result Comment (test code = Result 2 (Urine Culture)) [place] 853501-11-03 14:59:00 Test Item Value Reference Range Interpretation Comments Glucose Lvl (test code = Glucose Lvl) 101 65-99 [place] 853501-11-03 14:59:00 Test Item Value Reference Range Interpretation Comments BUN (test code = BUN) 9 7-25 [place] 853501-11-03 14:59:00 Test Item Value Reference Range Interpretation Comments Creatinine Lvl (test code = Creatinine 0.72 0.50-0.99 Lvl) [place] 853501-11-03 14:59:00 Test Item Value Reference Range Interpretation Comments eGFR NON-AFR. ARMENIAN (test code = 86 eGFR NON-AFR. ARMENIAN) [facility]2021-11-03 14:59:00 Test Item Value Reference Range Interpretation Comments eGFR (test code = eGFR 100 ) [place] 853501-11-03 14:59:00 Test Item Value Reference Range Interpretation Comments B/C Ratio (test code = B/C NOT APPLICABLE 6-22 Ratio) [place] 853501-11-03 14:59:00 Test Item Value Reference Range Interpretation Comments Sodium Lvl (test code = Sodium Lvl) 139 135-146 [place] 853501-11-03 14:59:00 Test Item Value Reference Range Interpretation Comments Potassium Lvl (test code = Potassium 4.2 3.5-5.3 Lvl) [place] 853501-11-03 14:59:00 Test Item Value Reference Range Interpretation Comments Chloride Lvl (test code = Chloride Lvl) 108 98-110 [place] 853501-11-03 14:59:00 Test Item Value Reference Range Interpretation Comments CO2 (test code = CO2) 23 20-32 [place] 853501-11-03 14:59:00 Test Item Value Reference Range Interpretation Comments Calcium Lvl (test code = Calcium Lvl) 9.6 8.6-10.4 [facility] CentralUiktfiaYZMRISPJOV8143-14-86 14:59:00 Test Item Value Reference Range Interpretation Comments WBC X 10x3 (test code = WBC X 10x3) 9.1 3.8-10.8 [place] 139731-11-03 14:59:00 Test Item Value Reference Range Interpretation Comments RBC X 10x6 (test code = RBC X 10x6) 3.70 3.80-5.10 [facility] CentralSqgcrnvWUSDIVCHLJ0153-51-98 14:59:00 Test Item Value Reference Range Interpretation Comments Hgb (test code = Hgb) 10.2 11.7-15.5 [place] 139731-11-03 14:59:00 Test Item Value Reference Range Interpretation Comments Hct (test code = Hct) 33.2 35.0-45.0 [place] 139731-11-03 14:59:00 Test Item Value Reference Range Interpretation Comments MCV (test code = MCV) 89.7 80.0-100.0 [place] 139731-11-03 14:59:00 Test Item Value Reference Range Interpretation Comments MCH (test code = MCH) 27.6 pg 27.0-33.0 [facility] CentralRlyucmeLQVYYYFDSW9095-25-26 14:59:00 Test Item Value Reference Range Interpretation Comments MCHC (test code = MCHC) 30.7 32.0-36.0 [facility] CentralLwxuwjnOHWIJRXSSX8769-01-85 14:59:00 Test Item Value Reference Range Interpretation Comments RDW (test code = RDW) 15.0 11.0-15.0 [place] 139731-11-03 14:59:00 Test Item Value Reference Range Interpretation Comments Platelet (test code = Platelet) 727 140-400 [facility] CentralJuvvpzbMNPFVHOOQI2951-63-62 14:59:00 Test Item Value Reference Range Interpretation Comments MPV (test code = MPV) 11.0 7.5-12.5 [facility] CentralMgpqlnmQYQQZYAXIB5138-92-65 14:59:00 Test Item Value Reference Range Interpretation Comments Neutrophils # (test code = Neutrophils 6743 4021-4057 #) [facility] CentralKtbpcruAEEVFGXXNB9901-65-59 14:59:00 Test Item Value Reference Range Interpretation Comments Lymphocytes # (test code = Lymphocytes [phone] #) [facility]FbprnleYXYYSBZEDD8991-97-82 14:59:00 Test Item Value Reference Range Interpretation Comments Monocytes # (test code = Monocytes #) 619 200-950 [facility] CentralPphpcddZGDLFLCWSN4699-37-83 14:59:00 Test Item Value Reference Range Interpretation Comments Eosinophils # (test code = Eosinophils 164 15-500 #) [facility] CentralQtzqzakEQBLLJUTLR7164-13-52 14:59:00 Test Item Value Reference Range Interpretation Comments Basophils # (test code 82 See_Comment [Aut omated message] The = Basophils #) system which generated this result tra nsmitted reference range : <=200. The reference r arelis was not used to int erpret this result as normal/abnormal . [facility] CentralAnanvttXJSDXZXEAO1429-92-84 14:59:00 Test Item Value Reference Range Interpretation Comments Segs (test code = Segs) 74.1 [facility] CentralLqrewzxATGMBGMXXA1284-39-31 14:59:00 Test Item Value Reference Range Interpretation Comments Lymphocytes (test code = Lymphocytes) 16.4 [facility] CentralDhilwniYWGJCPQNJV9165-26-38 14:59:00 Test Item Value Reference Range Interpretation Comments Monocytes (test code = Monocytes) 6.8 [facility] CentralUkaeirlKQAOVMUUDQ8251-78-89 14:59:00 Test Item Value Reference Range Interpretation Comments Eosinophils (test code = Eosinophils) 1.8 [facility] CentralJqpjulhBPFUPAGHRB5331-83-07 14:59:00 Test Item Value Reference Range Interpretation Comments Basophils (test code = Basophils) 0.9 [facility] ISBEGRU2291-26-31 14:59:00 Test Item Value Reference Range Interpretation Comments Result 2 (Urine Culture) See Result Comment (test code = Result 2 (Urine Culture)) [facility]2021-11-03 14:59:00 Test Item Value Reference Range Interpretation Comments Glucose Lvl (test code = Glucose Lvl) 101 65-99 [facility]2021-11-03 14:59:00 Test Item Value Reference Range Interpretation Comments BUN (test code = BUN) 9 7-25 [place] 853501-11-03 14:59:00 Test Item Value Reference Range Interpretation Comments Creatinine Lvl (test code = Creatinine 0.72 0.50-0.99 Lvl) [facility]2021-11-03 14:59:00 Test Item Value Reference Range Interpretation Comments eGFR NON-AFR. ARMENIAN (test code = 86 eGFR NON-AFR. ARMENIAN) [place] 853501-11-03 14:59:00 Test Item Value Reference Range Interpretation Comments eGFR (test code = eGFR 100 ) [address]11-03 14:59:00 Test Item Value Reference Range Interpretation Comments B/C Ratio (test code = B/C NOT APPLICABLE 6-22 Ratio) [place] [address]-11-03 14:59:00 Test Item Value Reference Range Interpretation Comments Sodium Lvl (test code = Sodium Lvl) 139 135-146 [place] [address]-11-03 14:59:00 Test Item Value Reference Range Interpretation Comments Potassium Lvl (test code = Potassium 4.2 3.5-5.3 Lvl) [place] [address]-11-03 14:59:00 Test Item Value Reference Range Interpretation Comments Chloride Lvl (test code = Chloride Lvl) 108 98-110 [place] 853501-11-03 14:59:00 Test Item Value Reference Range Interpretation Comments CO2 (test code = CO2) 23 20-32 [place] [address]-11-03 14:59:00 Test Item Value Reference Range Interpretation Comments Calcium Lvl (test code = Calcium Lvl) 9.6 8.6-10.4 [place] [address]-11-03 14:59:00 Test Item Value Reference Range Interpretation Comments WBC X 10x3 (test code = WBC X 10x3) 9.1 3.8-10.8 [place] [address]-11-03 14:59:00 Test Item Value Reference Range Interpretation Comments RBC X 10x6 (test code = RBC X 10x6) 3.70 3.80-5.10 [place] [address]-11-03 14:59:00 Test Item Value Reference Range Interpretation Comments Hgb (test code = Hgb) 10.2 11.7-15.5 [place] [address]-11-03 14:59:00 Test Item Value Reference Range Interpretation Comments Hct (test code = Hct) 33.2 35.0-45.0 [place] [address]-11-03 14:59:00 Test Item Value Reference Range Interpretation Comments MCV (test code = MCV) 89.7 80.0-100.0 [place] [address]-11-03 14:59:00 Test Item Value Reference Range Interpretation Comments MCH (test code = MCH) 27.6 pg 27.0-33.0 [place] 139731-11-03 14:59:00 Test Item Value Reference Range Interpretation Comments MCHC (test code = MCHC) 30.7 32.0-36.0 [place] [address]-11-03 14:59:00 Test Item Value Reference Range Interpretation Comments RDW (test code = RDW) 15.0 11.0-15.[address]11-03 14:59:00 Test Item Value Reference Range Interpretation Comments Platelet (test code = Platelet) 727 140-400 [place] 139731-11-03 14:59:00 Test Item Value Reference Range Interpretation Comments MPV (test code = MPV) 11.0 7.5-12.5 [place] [address]-11-03 14:59:00 Test Item Value Reference Range Interpretation Comments Neutrophils # (test code = Neutrophils 6743 8059-9904 #) [place] 139731-11-03 14:59:00 Test Item Value Reference Range Interpretation Comments Lymphocytes # (test code = Lymphocytes [phone] #) [facility] CentralWfqwdfuNIYUCGYPMW0981-15-45 14:59:00 Test Item Value Reference Range Interpretation Comments Monocytes # (test code = Monocytes #) 619 200-950 [place] 139731-11-03 14:59:00 Test Item Value Reference Range Interpretation Comments Eosinophils # (test code = Eosinophils 164 15-500 #) [place] [address]-11-03 14:59:00 Test Item Value Reference Range Interpretation Comments Basophils # (test code 82 See_Comment [Aut omated message] The = Basophils #) system which generated this result tra nsmitted reference range : <=200. The reference r arelis was not used to int erpret this result as normal/abnormal . [place] 139731-11-03 14:59:00 Test Item Value Reference Range Interpretation Comments Segs (test code = Segs) 74.1 [place] 139731-11-03 14:59:00 Test Item Value Reference Range Interpretation Comments Lymphocytes (test code = Lymphocytes) 16.4 [facility]nsWJVRAEJKUJ5013-99-33 14:59:00 Test Item Value Reference Range Interpretation Comments Monocytes (test code = Monocytes) 6.8 [facility]asyjoqGUUBQJNYGM1541-70-78 14:59:00 Test Item Value Reference Range Interpretation Comments Eosinophils (test code = Eosinophils) 1.8 [place] 139731-11-03 14:59:00 Test Item Value Reference Range Interpretation Comments Basophils (test code = Basophils) 0.9 [id number] 14:59:00 Test Item Value Reference Range Interpretation Comments Result 2 (Urine Culture) See Result Comment (test code = Result 2 (Urine Culture)) [place] 853501-11-03 14:59:00 Test Item Value Reference Range Interpretation Comments Glucose Lvl (test code = Glucose Lvl) 101 65-99 [place] 853501-11-03 14:59:00 Test Item Value Reference Range Interpretation Comments BUN (test code = BUN) 9 7-25 [place] 853501-11-03 14:59:00 Test Item Value Reference Range Interpretation Comments Creatinine Lvl (test code = Creatinine 0.72 0.50-0.99 Lvl) [facility]2021-11-03 14:59:00 Test Item Value Reference Range Interpretation Comments eGFR NON-AFR. ARMENIAN (test code = 86 eGFR NON-AFR. ARMENIAN) [facility]2021-11-03 14:59:00 Test Item Value Reference Range Interpretation Comments eGFR (test code = eGFR 100 ) [place] 853501-11-03 14:59:00 Test Item Value Reference Range Interpretation Comments B/C Ratio (test code = B/C NOT APPLICABLE 6-22 Ratio) [place] 853501-11-03 14:59:00 Test Item Value Reference Range Interpretation Comments Sodium Lvl (test code = Sodium Lvl) 139 135-146 [facility]2021-11-03 14:59:00 Test Item Value Reference Range Interpretation Comments Potassium Lvl (test code = Potassium 4.2 3.5-5.3 Lvl) [facility]2021-11-03 14:59:00 Test Item Value Reference Range Interpretation Comments Chloride Lvl (test code = Chloride Lvl) 108 98-110 [facility]2021-11-03 14:59:00 Test Item Value Reference Range Interpretation Comments CO2 (test code = CO2) 23 20-32 [facility]2021-11-03 14:59:00 Test Item Value Reference Range Interpretation Comments Calcium Lvl (test code = Calcium Lvl) 9.6 8.6-10.4 [place] 139731-11-03 14:59:00 Test Item Value Reference Range Interpretation Comments WBC X 10x3 (test code = WBC X 10x3) 9.1 3.8-10.8 [place] 139731-11-03 14:59:00 Test Item Value Reference Range Interpretation Comments RBC X 10x6 (test code = RBC X 10x6) 3.70 3.80-5.10 [place] 139731-11-03 14:59:00 Test Item Value Reference Range Interpretation Comments Hgb (test code = Hgb) 10.2 11.7-15.5 [place] [address]-11-03 14:59:00 Test Item Value Reference Range Interpretation Comments Hct (test code = Hct) 33.2 35.0-45.0 [place] 139731-11-03 14:59:00 Test Item Value Reference Range Interpretation Comments MCV (test code = MCV) 89.7 80.0-100.0 [place] 139731-11-03 14:59:00 Test Item Value Reference Range Interpretation Comments MCH (test code = MCH) 27.6 pg 27.0-33.0 [place] 139731-11-03 14:59:00 Test Item Value Reference Range Interpretation Comments MCHC (test code = MCHC) 30.7 32.0-36.0 [place] [address]-11-03 14:59:00 Test Item Value Reference Range Interpretation Comments RDW (test code = RDW) 15.0 11.0-15.0 [place] [address]-11-03 14:59:00 Test Item Value Reference Range Interpretation Comments Platelet (test code = Platelet) 727 140-400 [place] 139731-11-03 14:59:00 Test Item Value Reference Range Interpretation Comments MPV (test code = MPV) 11.0 7.5-12.5 [facility]oymaiiODVWQMHALH2404-58-03 14:59:00 Test Item Value Reference Range Interpretation Comments Neutrophils # (test code = Neutrophils 6743 2328-2648 #) [facility]borOmmtuwnRXRAGWKDXV4737-66-79 14:59:00 Test Item Value Reference Range Interpretation Comments Lymphocytes # (test code = Lymphocytes 0001 427-2461 #) [facility]borLpeucbxUZUOYBJWON7717-78-04 14:59:00 Test Item Value Reference Range Interpretation Comments Monocytes # (test code = Monocytes #) 619 200-950 [facility]borUmesgyaTYTCKVJAEW6060-76-61 14:59:00 Test Item Value Reference Range Interpretation Comments Eosinophils # (test code = Eosinophils 164 15-500 #) [facility] CentralUamiiexCYSIIGBEZV3754-85-17 14:59:00 Test Item Value Reference Range Interpretation Comments Basophils # (test code 82 See_Comment [Aut omated message] The = Basophils #) system which generated this result tra nsmitted reference range : <=200. The reference r arelis was not used to int erpret this result as normal/abnormal . [facility] CentralMyfmzoyZPJQICBXZY8640-85-24 14:59:00 Test Item Value Reference Range Interpretation Comments Segs (test code = Segs) 74.1 [facility] CentralKczypkqREXSVZDXVS7223-45-35 14:59:00 Test Item Value Reference Range Interpretation Comments Lymphocytes (test code = Lymphocytes) 16.4 [facility] CentralFxdgtmrUCAAUSCGHR8302-93-04 14:59:00 Test Item Value Reference Range Interpretation Comments Monocytes (test code = Monocytes) 6.8 [facility] CentralMxoxgxcSHCXBOUNYO9309-08-90 14:59:00 Test Item Value Reference Range Interpretation Comments Eosinophils (test code = Eosinophils) 1.8 [facility] CentralAkqtqylZKJDCSWEDB5981-38-05 14:59:00 Test Item Value Reference Range Interpretation Comments Basophils (test code = Basophils) 0.9 [facility] FGUCNHL5560-54-01 14:59:00 Test Item Value Reference Range Interpretation Comments Result 2 (Urine Culture) See Result Comment (test code = Result 2 (Urine Culture)) [facility] [id number] 14:59:00 Test Item Value Reference Range Interpretation Comments Glucose Lvl (test code = Glucose Lvl) 101 65-99 [facility]2021-11-03 14:59:00 Test Item Value Reference Range Interpretation Comments BUN (test code = BUN) 9 7-25 [place] 853501-11-03 14:59:00 Test Item Value Reference Range Interpretation Comments Creatinine Lvl (test code = Creatinine 0.72 0.50-0.99 Lvl) [place] 853501-11-03 14:59:00 Test Item Value Reference Range Interpretation Comments eGFR NON-AFR. ARMENIAN (test code = 86 eGFR NON-AFR. ARMENIAN) [place] 853501-11-03 14:59:00 Test Item Value Reference Range Interpretation Comments eGFR (test code = eGFR 100 ) [place] [address]-11-03 14:59:00 Test Item Value Reference Range Interpretation Comments B/C Ratio (test code = B/C NOT APPLICABLE 6-22 Ratio) [place] 853501-11-03 14:59:00 Test Item Value Reference Range Interpretation Comments Sodium Lvl (test code = Sodium Lvl) 139 135-146 [place] 853501-11-03 14:59:00 Test Item Value Reference Range Interpretation Comments Potassium Lvl (test code = Potassium 4.2 3.5-5.3 Lvl) [place] 853501-11-03 14:59:00 Test Item Value Reference Range Interpretation Comments Chloride Lvl (test code = Chloride Lvl) 108 98-110 [place] 853501-11-03 14:59:00 Test Item Value Reference Range Interpretation Comments CO2 (test code = CO2) 23 20-32 [place] 853501-11-03 14:59:00 Test Item Value Reference Range Interpretation Comments Calcium Lvl (test code = Calcium Lvl) 9.6 8.6-10.4 [place] 139731-11-03 14:59:00 Test Item Value Reference Range Interpretation Comments WBC X 10x3 (test code = WBC X 10x3) 9.1 3.8-10.8 [place] 139731-11-03 14:59:00 Test Item Value Reference Range Interpretation Comments RBC X 10x6 (test code = RBC X 10x6) 3.70 3.80-5.10 [place] 139731-11-03 14:59:00 Test Item Value Reference Range Interpretation Comments Hgb (test code = Hgb) 10.2 11.7-15.5 [facility] CentralEfzknnkACBAVOOBWA4719-56-40 14:59:00 Test Item Value Reference Range Interpretation Comments Hct (test code = Hct) 33.2 35.0-45.0 [place] 139731-11-03 14:59:00 Test Item Value Reference Range Interpretation Comments MCV (test code = MCV) 89.7 80.0-100.0 [place] 139731-11-03 14:59:00 Test Item Value Reference Range Interpretation Comments MCH (test code = MCH) 27.6 pg 27.0-33.0 [place] [address]-11-03 14:59:00 Test Item Value Reference Range Interpretation Comments MCHC (test code = MCHC) 30.7 32.0-36.0 [place] 139731-11-03 14:59:00 Test Item Value Reference Range Interpretation Comments RDW (test code = RDW) 15.0 11.0-15.0 [place] 139731-11-03 14:59:00 Test Item Value Reference Range Interpretation Comments Platelet (test code = Platelet) 727 140-400 [facility] CentralLmoxgqfBPFTOQNXJS1777-91-66 14:59:00 Test Item Value Reference Range Interpretation Comments MPV (test code = MPV) 11.0 7.5-12.5 [facility] CentralTsddphiQBTQPBMWFQ2023-76-49 14:59:00 Test Item Value Reference Range Interpretation Comments Neutrophils # (test code = Neutrophils 6743 2423-7257 #) [facility] CentralAjgicstZFJCGUSODH3282-24-60 14:59:00 Test Item Value Reference Range Interpretation Comments Lymphocytes # (test code = Lymphocytes 9449 057-2123 #) [facility] CentralPuwamhvTCKGNVCLGZ5609-90-36 14:59:00 Test Item Value Reference Range Interpretation Comments Monocytes # (test code = Monocytes #) 619 200-950 [place] 139731-11-03 14:59:00 Test Item Value Reference Range Interpretation Comments Eosinophils # (test code = Eosinophils 164 15-500 #) [facility] CentralAnivaxsIKBFFSAIQB2220-71-27 14:59:00 Test Item Value Reference Range Interpretation Comments Basophils # (test code 82 See_Comment [Aut omated message] The = Basophils #) system which generated this result tra nsmitted reference range : <=200. The reference r arelis was not used to int erpret this result as normal/abnormal . [place] 139731-11-03 14:59:00 Test Item Value Reference Range Interpretation Comments Segs (test code = Segs) 74.1 [place] 139731-11-03 14:59:00 Test Item Value Reference Range Interpretation Comments Lymphocytes (test code = Lymphocytes) 16.4 [place] 139731-11-03 14:59:00 Test Item Value Reference Range Interpretation Comments Monocytes (test code = Monocytes) 6.8 [place] 139731-11-03 14:59:00 Test Item Value Reference Range Interpretation Comments Eosinophils (test code = Eosinophils) 1.8 [place] 139731-11-03 14:59:00 Test Item Value Reference Range Interpretation Comments Basophils (test code = Basophils) 0.9 [facility] [id number] 14:59:00 Test Item Value Reference Range Interpretation Comments Result 2 (Urine Culture) See Result Comment (test code = Result 2 (Urine Culture)) [facility]2021-11-03 14:59:00 Test Item Value Reference Range Interpretation Comments Glucose Lvl (test code = Glucose Lvl) 101 65-99 [facility]2021-11-03 14:59:00 Test Item Value Reference Range Interpretation Comments BUN (test code = BUN) 9 7-25 [place] 853501-11-03 14:59:00 Test Item Value Reference Range Interpretation Comments Creatinine Lvl (test code = Creatinine 0.72 0.50-0.99 Lvl) [place] 853501-11-03 14:59:00 Test Item Value Reference Range Interpretation Comments eGFR NON-AFR. ARMENIAN (test code = 86 eGFR NON-AFR. ARMENIAN) [place] 853501-11-03 14:59:00 Test Item Value Reference Range Interpretation Comments eGFR (test code = eGFR 100 ) [place] 853501-11-03 14:59:00 Test Item Value Reference Range Interpretation Comments B/C Ratio (test code = B/C NOT APPLICABLE 6-22 Ratio) [place] 853501-11-03 14:59:00 Test Item Value Reference Range Interpretation Comments Sodium Lvl (test code = Sodium Lvl) 139 135-146 [place] 853501-11-03 14:59:00 Test Item Value Reference Range Interpretation Comments Potassium Lvl (test code = Potassium 4.2 3.5-5.3 Lvl) [place] 853501-11-03 14:59:00 Test Item Value Reference Range Interpretation Comments Chloride Lvl (test code = Chloride Lvl) 108 98-110 [place] 853501-11-03 14:59:00 Test Item Value Reference Range Interpretation Comments CO2 (test code = CO2) 23 20-32 [place] [address]-11-03 14:59:00 Test Item Value Reference Range Interpretation Comments Calcium Lvl (test code = Calcium Lvl) 9.6 8.6-10.4 [place] [address]-11-03 14:59:00 Test Item Value Reference Range Interpretation Comments WBC X 10x3 (test code = WBC X 10x3) 9.1 3.8-10.8 [place] [address]-11-03 14:59:00 Test Item Value Reference Range Interpretation Comments RBC X 10x6 (test code = RBC X 10x6) 3.70 3.80-5.10 [place] [address]-11-03 14:59:00 Test Item Value Reference Range Interpretation Comments Hgb (test code = Hgb) 10.2 11.7-15.5 [place] [address]-11-03 14:59:00 Test Item Value Reference Range Interpretation Comments Hct (test code = Hct) 33.2 35.0-45.0 [place] [address]-11-03 14:59:00 Test Item Value Reference Range Interpretation Comments MCV (test code = MCV) 89.7 80.0-100.0 [place] [address]-11-03 14:59:00 Test Item Value Reference Range Interpretation Comments MCH (test code = MCH) 27.6 pg 27.0-33.0 [place] [address]-11-03 14:59:00 Test Item Value Reference Range Interpretation Comments MCHC (test code = MCHC) 30.7 32.0-36.0 [place] [address]-11-03 14:59:00 Test Item Value Reference Range Interpretation Comments RDW (test code = RDW) 15.0 11.0-15.0 [facility]KtgmhhkFQNQEHTTBV3390-51-70 14:59:00 Test Item Value Reference Range Interpretation Comments Platelet (test code = Platelet) 727 140-400 [facility]borMejwbcwSKNQETMZKK5512-80-06 14:59:00 Test Item Value Reference Range Interpretation Comments MPV (test code = MPV) 11.0 7.5-12.5 [facility] CentralGdqdvfvEDUGZYBFTN7625-46-26 14:59:00 Test Item Value Reference Range Interpretation Comments Neutrophils # (test code = Neutrophils 6743 5598-1081 #) [facility]borIdfpjvxYCBNYHYCQP3796-51-77 14:59:00 Test Item Value Reference Range Interpretation Comments Lymphocytes # (test code = Lymphocytes 5094 434-3299 #) [facility]borIbgwfnwJMKIXUPRHW8269-53-90 14:59:00 Test Item Value Reference Range Interpretation Comments Monocytes # (test code = Monocytes #) 619 200-950 [facility] CentralPvjdhjnOQWRLLRTIQ7881-03-11 14:59:00 Test Item Value Reference Range Interpretation Comments Eosinophils # (test code = Eosinophils 164 15-500 #) [facility]borYdkewqjTFNIDBTJAO4354-30-90 14:59:00 Test Item Value Reference Range Interpretation Comments Basophils # (test code 82 See_Comment [Aut omated message] The = Basophils #) system which generated this result tra nsmitted reference range : <=200. The reference r arelis was not used to int erpret this result as normal/abnormal . [facility] CentralNyqntwiDCJWZGBDVB8387-11-91 14:59:00 Test Item Value Reference Range Interpretation Comments Segs (test code = Segs) 74.1 [facility] CentralRbzlzffYTHQOIYUOZ5057-36-20 14:59:00 Test Item Value Reference Range Interpretation Comments Lymphocytes (test code = Lymphocytes) 16.4 [facility] CentralWkbdwapWKRPTTDETR1442-90-13 14:59:00 Test Item Value Reference Range Interpretation Comments Monocytes (test code = Monocytes) 6.8 [facility] CentralAjaupfyPMMDGHUWIW6967-45-33 14:59:00 Test Item Value Reference Range Interpretation Comments Eosinophils (test code = Eosinophils) 1.8 [facility] CentralUykvitmDAXRHFJXJM5978-68-71 14:59:00 Test Item Value Reference Range Interpretation Comments Basophils (test code = Basophils) 0.9 [facility] [id number] 14:59:00 Test Item Value Reference Range Interpretation Comments Result 2 (Urine Culture) See Result Comment (test code = Result 2 (Urine Culture)) [place] 853501-11-03 14:59:00 Test Item Value Reference Range Interpretation Comments Glucose Lvl (test code = Glucose Lvl) 101 65-99 [place] 853501-11-03 14:59:00 Test Item Value Reference Range Interpretation Comments BUN (test code = BUN) 9 7-25 [place] 853501-11-03 14:59:00 Test Item Value Reference Range Interpretation Comments Creatinine Lvl (test code = Creatinine 0.72 0.50-0.99 Lvl) [place] 853501-11-03 14:59:00 Test Item Value Reference Range Interpretation Comments eGFR NON-AFR. ARMENIAN (test code = 86 eGFR NON-AFR. ARMENIAN) [place] 853501-11-03 14:59:00 Test Item Value Reference Range Interpretation Comments eGFR (test code = eGFR 100 ) [place] 853501-11-03 14:59:00 Test Item Value Reference Range Interpretation Comments B/C Ratio (test code = B/C NOT APPLICABLE 6-22 Ratio) [place] 853501-11-03 14:59:00 Test Item Value Reference Range Interpretation Comments Sodium Lvl (test code = Sodium Lvl) 139 135-146 [facility]2021-11-03 14:59:00 Test Item Value Reference Range Interpretation Comments Potassium Lvl (test code = Potassium 4.2 3.5-5.3 Lvl) [place] 853501-11-03 14:59:00 Test Item Value Reference Range Interpretation Comments Chloride Lvl (test code = Chloride Lvl) 108 98-110 [place] 853501-11-03 14:59:00 Test Item Value Reference Range Interpretation Comments CO2 (test code = CO2) 23 20-32 [place] 853501-11-03 14:59:00 Test Item Value Reference Range Interpretation Comments Calcium Lvl (test code = Calcium Lvl) 9.6 8.6-10.4 [facility] CentralPdnzvdeFXIHZYOTUY9626-18-23 14:59:00 Test Item Value Reference Range Interpretation Comments WBC X 10x3 (test code = WBC X 10x3) 9.1 3.8-10.8 [facility] CentralJltrieuMDWSNGKPIK1581-40-03 14:59:00 Test Item Value Reference Range Interpretation Comments RBC X 10x6 (test code = RBC X 10x6) 3.70 3.80-5.10 [facility] CentralXquusdqTGKTNGSLOK4674-60-86 14:59:00 Test Item Value Reference Range Interpretation Comments Hgb (test code = Hgb) 10.2 11.7-15.5 [facility] CentralFvjxexiQXIDYPMWSW6285-02-85 14:59:00 Test Item Value Reference Range Interpretation Comments Hct (test code = Hct) 33.2 35.0-45.0 [facility] CentralAyvatduGWLEMKAXSG6981-96-22 14:59:00 Test Item Value Reference Range Interpretation Comments MCV (test code = MCV) 89.7 80.0-100.0 [facility] CentralAmeydtbIEJMBOCEBE0026-13-24 14:59:00 Test Item Value Reference Range Interpretation Comments MCH (test code = MCH) 27.6 pg 27.0-33.0 [facility] CentralRxudwcyIPMDIBYLJQ3315-17-23 14:59:00 Test Item Value Reference Range Interpretation Comments MCHC (test code = MCHC) 30.7 32.0-36.0 [facility] CentralEytlsuzFBSRERJDFD6370-29-25 14:59:00 Test Item Value Reference Range Interpretation Comments RDW (test code = RDW) 15.0 11.0-15.0 [facility] CentralJkrpiqvMSDEHREMJP3665-74-47 14:59:00 Test Item Value Reference Range Interpretation Comments Platelet (test code = Platelet) 727 140-400 [facility] CentralRgietryDEKNJTVAYB0340-74-33 14:59:00 Test Item Value Reference Range Interpretation Comments MPV (test code = MPV) 11.0 7.5-12.5 [facility] CentralXhytwssBMBXNHGHPB8499-22-74 14:59:00 Test Item Value Reference Range Interpretation Comments Neutrophils # (test code = Neutrophils 6743 7788-7498 #) [facility] CentralWwfixkhRBJYYNJYCO1182-15-73 14:59:00 Test Item Value Reference Range Interpretation Comments Lymphocytes # (test code = Lymphocytes 3849 882-9227 #) [facility] CentralYtretdjVUVGSCBBPW9782-36-03 14:59:00 Test Item Value Reference Range Interpretation Comments Monocytes # (test code = Monocytes #) 619 200-950 [facility] CentralZbwqfpfBHQHRVZKRH4130-48-67 14:59:00 Test Item Value Reference Range Interpretation Comments Eosinophils # (test code = Eosinophils 164 15-500 #) [facility] CentralJdkklsdGKVVGYLSSE3053-03-86 14:59:00 Test Item Value Reference Range Interpretation Comments Basophils # (test code 82 See_Comment [Aut omated message] The = Basophils #) system which generated this result tra nsmitted reference range : <=200. The reference r arelis was not used to int erpret this result as normal/abnormal . [facility] CentralPdvzijyKCDQPQUPUC9343-88-30 14:59:00 Test Item Value Reference Range Interpretation Comments Segs (test code = Segs) 74.1 [place] 139731-11-03 14:59:00 Test Item Value Reference Range Interpretation Comments Lymphocytes (test code = Lymphocytes) 16.4 [place] 139731-11-03 14:59:00 Test Item Value Reference Range Interpretation Comments Monocytes (test code = Monocytes) 6.8 [facility] CentralSdegakxYEAHZBYFAG2729-28-89 14:59:00 Test Item Value Reference Range Interpretation Comments Eosinophils (test code = Eosinophils) 1.8 [place] 139731-11-03 14:59:00 Test Item Value Reference Range Interpretation Comments Basophils (test code = Basophils) 0.9 [facility] OVYRBGA8541-86-45 14:59:00 Test Item Value Reference Range Interpretation Comments Result 2 (Urine Culture) See Result Comment (test code = Result 2 (Urine Culture)) [facility]2021-11-03 14:59:00 Test Item Value Reference Range Interpretation Comments Glucose Lvl (test code = Glucose Lvl) 101 65-99 [place] 853501-11-03 14:59:00 Test Item Value Reference Range Interpretation Comments BUN (test code = BUN) 9 7-25 [place] 853501-11-03 14:59:00 Test Item Value Reference Range Interpretation Comments Creatinine Lvl (test code = Creatinine 0.72 0.50-0.99 Lvl) [facility]2021-11-03 14:59:00 Test Item Value Reference Range Interpretation Comments eGFR NON-AFR. ARMENIAN (test code = 86 eGFR NON-AFR. ARMENIAN) [facility]2021-11-03 14:59:00 Test Item Value Reference Range Interpretation Comments Glucose Lvl (test code = Glucose Lvl) 101 65-99 [place] 853501-11-03 14:59:00 Test Item Value Reference Range Interpretation Comments BUN (test code = BUN) 9 7-25 [place] 853501-11-03 14:59:00 Test Item Value Reference Range Interpretation Comments Creatinine Lvl (test code = Creatinine 0.72 0.50-0.99 Lvl) [place] 853501-11-03 14:59:00 Test Item Value Reference Range Interpretation Comments eGFR NON-AFR. ARMENIAN (test code = 86 eGFR NON-AFR. ARMENIAN) [place] 853501-11-03 14:59:00 Test Item Value Reference Range Interpretation Comments eGFR (test code = eGFR 100 ) [place] 853501-11-03 14:59:00 Test Item Value Reference Range Interpretation Comments B/C Ratio (test code = B/C NOT APPLICABLE 6-22 Ratio) [place] 853501-11-03 14:59:00 Test Item Value Reference Range Interpretation Comments Sodium Lvl (test code = Sodium Lvl) 139 135-146 [place] 853501-11-03 14:59:00 Test Item Value Reference Range Interpretation Comments Potassium Lvl (test code = Potassium 4.2 3.5-5.3 Lvl) [facility]2021-11-03 14:59:00 Test Item Value Reference Range Interpretation Comments Chloride Lvl (test code = Chloride Lvl) 108 98-110 [place] 853501-11-03 14:59:00 Test Item Value Reference Range Interpretation Comments CO2 (test code = CO2) 23 20-32 [place] 853501-11-03 14:59:00 Test Item Value Reference Range Interpretation Comments eGFR (test code = eGFR 100 ) [place] 853501-11-03 14:59:00 Test Item Value Reference Range Interpretation Comments Calcium Lvl (test code = Calcium Lvl) 9.6 8.6-10.4 [place] 139731-11-03 14:59:00 Test Item Value Reference Range Interpretation Comments WBC X 10x3 (test code = WBC X 10x3) 9.1 3.8-10.8 [place] 139731-11-03 14:59:00 Test Item Value Reference Range Interpretation Comments RBC X 10x6 (test code = RBC X 10x6) 3.70 3.80-5.10 [facility]YpqtanpDLHGGYYBGK8564-40-74 14:59:00 Test Item Value Reference Range Interpretation Comments Hgb (test code = Hgb) 10.2 11.7-15.5 [place] 139731-11-03 14:59:00 Test Item Value Reference Range Interpretation Comments Hct (test code = Hct) 33.2 35.0-45.0 [facility] CentralPqevpzhZGLVEYMCQY4863-64-95 14:59:00 Test Item Value Reference Range Interpretation Comments MCV (test code = MCV) 89.7 80.0-100.0 [facility] CentralMuzswrdCYONKSYQDP8564-78-27 14:59:00 Test Item Value Reference Range Interpretation Comments MCH (test code = MCH) 27.6 pg 27.0-33.0 [place] 139731-11-03 14:59:00 Test Item Value Reference Range Interpretation Comments MCHC (test code = MCHC) 30.7 32.0-36.0 [facility] CentralTclhbumTPARLSGCAA5249-51-83 14:59:00 Test Item Value Reference Range Interpretation Comments RDW (test code = RDW) 15.0 11.0-15.0 [facility] CentralZddzoaiPBULIPBMRE2058-30-76 14:59:00 Test Item Value Reference Range Interpretation Comments Platelet (test code = Platelet) 727 140-400 [facility]2021-11-03 14:59:00 Test Item Value Reference Range Interpretation Comments B/C Ratio (test code = B/C NOT APPLICABLE 6-22 Ratio) [facility] CentralFbvxoyeWMGUVHCEGG2620-59-18 14:59:00 Test Item Value Reference Range Interpretation Comments MPV (test code = MPV) 11.0 7.5-12.5 [place] 139731-11-03 14:59:00 Test Item Value Reference Range Interpretation Comments Neutrophils # (test code = Neutrophils 6743 7850-6255 #) [facility] CentralVszimzaENMCLVXMXU5027-36-13 14:59:00 Test Item Value Reference Range Interpretation Comments Lymphocytes # (test code = Lymphocytes [phone] #) [facility] CentralCkfzynfZEAVUKNFFF9866-54-30 14:59:00 Test Item Value Reference Range Interpretation Comments Monocytes # (test code = Monocytes #) 619 200-950 [facility]FdyeugmBSLGUPJAQE3503-98-41 14:59:00 Test Item Value Reference Range Interpretation Comments Eosinophils # (test code = Eosinophils 164 15-500 #) [facility] CentralFymjjtfITZPAQBIHF5426-60-52 14:59:00 Test Item Value Reference Range Interpretation Comments Basophils # (test code 82 See_Comment [Aut omated message] The = Basophils #) system which generated this result tra nsmitted reference range : <=200. The reference r arelis was not used to int erpret this result as normal/abnormal . [facility] CentralDphmsnjUGGCRLALKU5808-45-83 14:59:00 Test Item Value Reference Range Interpretation Comments Segs (test code = Segs) 74.1 [facility] CentralFmbyigmEXCYRTCQVS8180-88-42 14:59:00 Test Item Value Reference Range Interpretation Comments Lymphocytes (test code = Lymphocytes) 16.4 [facility] CentralDaragaoDCXIQEKDXQ3019-40-28 14:59:00 Test Item Value Reference Range Interpretation Comments Monocytes (test code = Monocytes) 6.8 [facility] CentralWktuofgJVNSZROXZK4406-91-37 14:59:00 Test Item Value Reference Range Interpretation Comments Eosinophils (test code = Eosinophils) 1.8 [facility] UTCJC6497-77-58 14:59:00 Test Item Value Reference Range Interpretation Comments Sodium Lvl (test code = Sodium Lvl) 139 135-146 [facility] CentralHieagbwTMPJZMIUVB5781-36-67 14:59:00 Test Item Value Reference Range Interpretation Comments Basophils (test code = Basophils) 0.9 [facility] DEPJTYM9065-49-19 14:59:00 Test Item Value Reference Range Interpretation Comments Result 2 (Urine Culture) See Result Comment (test code = Result 2 (Urine Culture)) [facility]Style[facility] KRGYZ9798-27-62 14:59:00 Test Item Value Reference Range Interpretation Comments Potassium Lvl (test code = Potassium 4.2 3.5-5.3 Lvl) [facility] AIXJW5727-95-36 14:59:00 Test Item Value Reference Range Interpretation Comments Chloride Lvl (test code = Chloride Lvl) 108 98-110 [facility] OIKGJ7605-24-41 14:59:00 Test Item Value Reference Range Interpretation Comments CO2 (test code = CO2) 23 20-32 [facility]2021-11-03 14:59:00 Test Item Value Reference Range Interpretation Comments Calcium Lvl (test code = Calcium Lvl) 9.6 8.6-10.4 [facility] CentralSrwtyhnOZNHCXDRUR5604-71-04 14:59:00 Test Item Value Reference Range Interpretation Comments WBC X 10x3 (test code = WBC X 10x3) 9.1 3.8-10.8 [place] 139731-11-03 14:59:00 Test Item Value Reference Range Interpretation Comments RBC X 10x6 (test code = RBC X 10x6) 3.70 3.80-5.10 [place] 139731-11-03 14:59:00 Test Item Value Reference Range Interpretation Comments Hgb (test code = Hgb) 10.2 11.7-15.5 [facility] CentralGsjsaqbUXTGGXLRQF5309-05-81 14:59:00 Test Item Value Reference Range Interpretation Comments Hct (test code = Hct) 33.2 35.0-45.0 [facility] CentralZjgucgeYQIZZTGHVX8777-38-44 14:59:00 Test Item Value Reference Range Interpretation Comments MCV (test code = MCV) 89.7 80.0-100.0 [facility] CentralPudjliwWUSYBJSOZX6315-33-66 14:59:00 Test Item Value Reference Range Interpretation Comments MCH (test code = MCH) 27.6 pg 27.0-33.0 [facility] CentralMxrulmoDEUTIATFEA7063-46-95 14:59:00 Test Item Value Reference Range Interpretation Comments MCHC (test code = MCHC) 30.7 32.0-36.0 [facility] CentralQkapphsIPZOZFVLZT1350-02-57 14:59:00 Test Item Value Reference Range Interpretation Comments RDW (test code = RDW) 15.0 11.0-15.0 [place] 139731-11-03 14:59:00 Test Item Value Reference Range Interpretation Comments Platelet (test code = Platelet) 727 140-400 [facility] CentralTeyzwqnQHMDTNASFC6041-36-16 14:59:00 Test Item Value Reference Range Interpretation Comments MPV (test code = MPV) 11.0 7.5-12.5 [facility] CentralPjgsidsIGZVMLBJIB1747-33-98 14:59:00 Test Item Value Reference Range Interpretation Comments Neutrophils # (test code = Neutrophils 6743 4738-7950 #) [facility] CentralJcveoqwGDQBVREALV2329-06-26 14:59:00 Test Item Value Reference Range Interpretation Comments Lymphocytes # (test code = Lymphocytes 0127 988-6708 #) [facility]borEdbwxlqPIFVHTFDSF1999-00-48 14:59:00 Test Item Value Reference Range Interpretation Comments Monocytes # (test code = Monocytes #) 619 200-950 [facility] ArborLpgnnkbLVDTHLMNKI2110-39-38 14:59:00 Test Item Value Reference Range Interpretation Comments Eosinophils # (test code = Eosinophils 164 15-500 #) [facility] CentralWzzfsbfJTGJPVKUNL9792-56-05 14:59:00 Test Item Value Reference Range Interpretation Comments Basophils # (test code 82 See_Comment [Aut omated message] The = Basophils #) system which generated this result tra nsmitted reference range : <=200. The reference r arelis was not used to int erpret this result as normal/abnormal . [facility] CentralTnhasvjXKWYIHFZZV9373-75-58 14:59:00 Test Item Value Reference Range Interpretation Comments Segs (test code = Segs) 74.1 [facility] CentralBlptdyrKLPPLXJXAU8266-21-71 14:59:00 Test Item Value Reference Range Interpretation Comments Lymphocytes (test code = Lymphocytes) 16.4 [facility] CentralAahryhkAZWIXXKGDQ6584-74-76 14:59:00 Test Item Value Reference Range Interpretation Comments Monocytes (test code = Monocytes) 6.8 [facility] CentralKwpxkvsIKVZNGHDAY0006-03-62 14:59:00 Test Item Value Reference Range Interpretation Comments Eosinophils (test code = Eosinophils) 1.8 [facility] CentralZpupbgrOYRHSTNURK7631-25-92 14:59:00 Test Item Value Reference Range Interpretation Comments Basophils (test code = Basophils) 0.9 [facility] [id number] 14:59:00 Test Item Value Reference Range Interpretation Comments Result 2 (Urine Culture) See Result Comment (test code = Result 2 (Urine Culture)) [facility] [id number] 14:59:00 Test Item Value Reference Range Interpretation Comments Glucose Lvl (test code = Glucose Lvl) 101 65-99 [facility]2021-11-03 14:59:00 Test Item Value Reference Range Interpretation Comments BUN (test code = BUN) 9 7-25 [facility]2021-11-03 14:59:00 Test Item Value Reference Range Interpretation Comments Creatinine Lvl (test code = Creatinine 0.72 0.50-0.99 Lvl) [place] 853501-11-03 14:59:00 Test Item Value Reference Range Interpretation Comments eGFR NON-AFR. ARMENIAN (test code = 86 eGFR NON-AFR. ARMENIAN) [place] 853501-11-03 14:59:00 Test Item Value Reference Range Interpretation Comments eGFR (test code = eGFR 100 ) [place] [address]-11-03 14:59:00 Test Item Value Reference Range Interpretation Comments B/C Ratio (test code = B/C NOT APPLICABLE 622 Ratio) [place] [address]-11-03 14:59:00 Test Item Value Reference Range Interpretation Comments Sodium Lvl (test code = Sodium Lvl) 139 135-146 [place] [address]-11-03 14:59:00 Test Item Value Reference Range Interpretation Comments Potassium Lvl (test code = Potassium 4.2 3.5-5.3 Lvl) [place] 853501-11-03 14:59:00 Test Item Value Reference Range Interpretation Comments Chloride Lvl (test code = Chloride Lvl) 108 98-110 [place] 853501-11-03 14:59:00 Test Item Value Reference Range Interpretation Comments CO2 (test code = CO2) 23 20-32 [place] 853501-11-03 14:59:00 Test Item Value Reference Range Interpretation Comments Calcium Lvl (test code = Calcium Lvl) 9.6 8.6-10.4 [place] [address]-11-03 14:59:00 Test Item Value Reference Range Interpretation Comments WBC X 10x3 (test code = WBC X 10x3) 9.1 3.8-10.8 [place] [address]-11-03 14:59:00 Test Item Value Reference Range Interpretation Comments RBC X 10x6 (test code = RBC X 10x6) 3.70 3.80-5.10 [place] [address]-11-03 14:59:00 Test Item Value Reference Range Interpretation Comments Hgb (test code = Hgb) 10.2 11.7-15.5 [place] [address]-11-03 14:59:00 Test Item Value Reference Range Interpretation Comments Hct (test code = Hct) 33.2 35.0-45.0 [place] [address]-11-03 14:59:00 Test Item Value Reference Range Interpretation Comments MCV (test code = MCV) 89.7 80.0-100.0 [place] [address]-11-03 14:59:00 Test Item Value Reference Range Interpretation Comments MCH (test code = MCH) 27.6 pg 27.0-33.0 [place] [address]-11-03 14:59:00 Test Item Value Reference Range Interpretation Comments MCHC (test code = MCHC) 30.7 32.0-36.0 [place] [address]-11-03 14:59:00 Test Item Value Reference Range Interpretation Comments RDW (test code = RDW) 15.0 11.0-15.0 [address]11-03 14:59:00 Test Item Value Reference Range Interpretation Comments Platelet (test code = Platelet) 727 140-400 [place] 139731-11-03 14:59:00 Test Item Value Reference Range Interpretation Comments MPV (test code = MPV) 11.0 7.5-12.5 [place] [address]-11-03 14:59:00 Test Item Value Reference Range Interpretation Comments Neutrophils # (test code = Neutrophils 6743 2024-8096 #) [place] 139731-11-03 14:59:00 Test Item Value Reference Range Interpretation Comments Lymphocytes # (test code = Lymphocytes 3815 878-3042 #) [facility] CentralOoqduzoVTINAMQAUC8533-93-40 14:59:00 Test Item Value Reference Range Interpretation Comments Monocytes # (test code = Monocytes #) 619 200-950 [place] 139731-11-03 14:59:00 Test Item Value Reference Range Interpretation Comments Eosinophils # (test code = Eosinophils 164 15-500 #) [place] 139731-11-03 14:59:00 Test Item Value Reference Range Interpretation Comments Basophils # (test code 82 See_Comment [Aut omated message] The = Basophils #) system which generated this result tra nsmitted reference range : <=200. The reference r arelis was not used to int erpret this result as normal/abnormal . [place] 139731-11-03 14:59:00 Test Item Value Reference Range Interpretation Comments Segs (test code = Segs) 74.1 [facility] CentralMpyfcwpXYRCRELPMK2398-13-16 14:59:00 Test Item Value Reference Range Interpretation Comments Lymphocytes (test code = Lymphocytes) 16.4 [place] 139731-11-03 14:59:00 Test Item Value Reference Range Interpretation Comments Monocytes (test code = Monocytes) 6.8 [facility] CentralCetttsxDUGRHPYLBU1465-41-02 14:59:00 Test Item Value Reference Range Interpretation Comments Eosinophils (test code = Eosinophils) 1.8 [facility] CentralBghikhwPKDLXJXDSY5371-64-60 14:59:00 Test Item Value Reference Range Interpretation Comments Basophils (test code = Basophils) 0.9 [facility] [id number] 14:59:00 Test Item Value Reference Range Interpretation Comments Result 2 (Urine Culture) See Result Comment (test code = Result 2 (Urine Culture)) [place] 853501-11-03 14:59:00 Test Item Value Reference Range Interpretation Comments Glucose Lvl (test code = Glucose Lvl) 101 65-99 [facility]2021-11-03 14:59:00 Test Item Value Reference Range Interpretation Comments BUN (test code = BUN) 9 7-25 [facility]2021-11-03 14:59:00 Test Item Value Reference Range Interpretation Comments Creatinine Lvl (test code = Creatinine 0.72 0.50-0.99 Lvl) [facility]2021-11-03 14:59:00 Test Item Value Reference Range Interpretation Comments eGFR NON-AFR. ARMENIAN (test code = 86 eGFR NON-AFR. ARMENIAN) [facility]2021-11-03 14:59:00 Test Item Value Reference Range Interpretation Comments eGFR (test code = eGFR 100 ) [facility]2021-11-03 14:59:00 Test Item Value Reference Range Interpretation Comments B/C Ratio (test code = B/C NOT APPLICABLE 6-22 Ratio) [place] 853501-11-03 14:59:00 Test Item Value Reference Range Interpretation Comments Sodium Lvl (test code = Sodium Lvl) 139 135-146 [facility]2021-11-03 14:59:00 Test Item Value Reference Range Interpretation Comments Potassium Lvl (test code = Potassium 4.2 3.5-5.3 Lvl) [facility]2021-11-03 14:59:00 Test Item Value Reference Range Interpretation Comments Chloride Lvl (test code = Chloride Lvl) 108 98-110 [place] 853501-11-03 14:59:00 Test Item Value Reference Range Interpretation Comments CO2 (test code = CO2) 23 20-32 [place] 853501-11-03 14:59:00 Test Item Value Reference Range Interpretation Comments Calcium Lvl (test code = Calcium Lvl) 9.6 8.6-10.4 [place] 139731-11-03 14:59:00 Test Item Value Reference Range Interpretation Comments WBC X 10x3 (test code = WBC X 10x3) 9.1 3.8-10.8 [place] [address]-11-03 14:59:00 Test Item Value Reference Range Interpretation Comments RBC X 10x6 (test code = RBC X 10x6) 3.70 3.80-5.10 [place] 139731-11-03 14:59:00 Test Item Value Reference Range Interpretation Comments Hgb (test code = Hgb) 10.2 11.7-15.5 [place] 139731-11-03 14:59:00 Test Item Value Reference Range Interpretation Comments Hct (test code = Hct) 33.2 35.0-45.0 [place] 139731-11-03 14:59:00 Test Item Value Reference Range Interpretation Comments MCV (test code = MCV) 89.7 80.0-100.0 [place] 139731-11-03 14:59:00 Test Item Value Reference Range Interpretation Comments MCH (test code = MCH) 27.6 pg 27.0-33.0 [place] [address]-11-03 14:59:00 Test Item Value Reference Range Interpretation Comments MCHC (test code = MCHC) 30.7 32.0-36.0 [place] [address]-11-03 14:59:00 Test Item Value Reference Range Interpretation Comments RDW (test code = RDW) 15.0 11.0-15.0 [place] [address]-11-03 14:59:00 Test Item Value Reference Range Interpretation Comments Platelet (test code = Platelet) 727 140-400 [place] 139731-11-03 14:59:00 Test Item Value Reference Range Interpretation Comments MPV (test code = MPV) 11.0 7.5-12.5 [facility]borVnqnmbrPMDSRSIKKT9014-40-31 14:59:00 Test Item Value Reference Range Interpretation Comments Neutrophils # (test code = Neutrophils 6743 7027-3950 #) [facility]borYycwsjiTKJHHRNIZW2779-42-59 14:59:00 Test Item Value Reference Range Interpretation Comments Lymphocytes # (test code = Lymphocytes 3539 585-3321 #) [facility]borLrckuefBYMMTWXQLQ0902-78-89 14:59:00 Test Item Value Reference Range Interpretation Comments Monocytes # (test code = Monocytes #) 619 200-950 [facility] CampusHqquoroHXJVSEMZHE9409-48-84 14:59:00 Test Item Value Reference Range Interpretation Comments Eosinophils # (test code = Eosinophils 164 15-500 #) [facility]borDcojejgLOUYVNILWL3514-37-29 14:59:00 Test Item Value Reference Range Interpretation Comments Basophils # (test code 82 See_Comment [Aut omated message] The = Basophils #) system which generated this result tra nsmitted reference range : <=200. The reference r arelis was not used to int erpret this result as normal/abnormal . [facility]borBxxjhufIHKUHOVGEX3957-59-27 14:59:00 Test Item Value Reference Range Interpretation Comments Segs (test code = Segs) 74.1 [facility] CentralOaewmozYTQSXNEGBM2025-69-62 14:59:00 Test Item Value Reference Range Interpretation Comments Lymphocytes (test code = Lymphocytes) 16.4 [facility]borZakkdtsNOFOYVWKFJ4775-28-91 14:59:00 Test Item Value Reference Range Interpretation Comments Monocytes (test code = Monocytes) 6.8 [facility] ArborZwvdmkiRAYREWHWUS2970-59-10 14:59:00 Test Item Value Reference Range Interpretation Comments Eosinophils (test code = Eosinophils) 1.8 [facility]borSxnjxcjOAVYBCLKXD1373-68-32 14:59:00 Test Item Value Reference Range Interpretation Comments Basophils (test code = Basophils) 0.9 [facility] [id number] 14:59:00 Test Item Value Reference Range Interpretation Comments Result 2 (Urine Culture) See Result Comment (test code = Result 2 (Urine Culture)) [facility] CampusCHEM NERLY2580-49-18 14:59:00 Test Item Value Reference Range Interpretation Comments Glucose Lvl (test code = Glucose Lvl) 101 65-99 [place] 853501-11-03 14:59:00 Test Item Value Reference Range Interpretation Comments BUN (test code = BUN) 9 7-25 [place] 853501-11-03 14:59:00 Test Item Value Reference Range Interpretation Comments Creatinine Lvl (test code = Creatinine 0.72 0.50-0.99 Lvl) [place] 853501-11-03 14:59:00 Test Item Value Reference Range Interpretation Comments eGFR NON-AFR. ARMENIAN (test code = 86 eGFR NON-AFR. ARMENIAN) [place] 853501-11-03 14:59:00 Test Item Value Reference Range Interpretation Comments eGFR (test code = eGFR 100 ) [place] 853501-11-03 14:59:00 Test Item Value Reference Range Interpretation Comments B/C Ratio (test code = B/C NOT APPLICABLE 6-22 Ratio) [place] 853501-11-03 14:59:00 Test Item Value Reference Range Interpretation Comments Sodium Lvl (test code = Sodium Lvl) 139 135-146 [place] 853501-11-03 14:59:00 Test Item Value Reference Range Interpretation Comments Potassium Lvl (test code = Potassium 4.2 3.5-5.3 Lvl) [facility]2021-11-03 14:59:00 Test Item Value Reference Range Interpretation Comments Chloride Lvl (test code = Chloride Lvl) 108 98-110 [place] 853501-11-03 14:59:00 Test Item Value Reference Range Interpretation Comments CO2 (test code = CO2) 23 20-32 [place] 853501-11-03 14:59:00 Test Item Value Reference Range Interpretation Comments Calcium Lvl (test code = Calcium Lvl) 9.6 8.6-10.4 [facility] CentralZvnpcrsDZQNHYDDLJ6372-18-12 14:59:00 Test Item Value Reference Range Interpretation Comments WBC X 10x3 (test code = WBC X 10x3) 9.1 3.8-10.8 [place] 139731-11-03 14:59:00 Test Item Value Reference Range Interpretation Comments RBC X 10x6 (test code = RBC X 10x6) 3.70 3.80-5.10 [place] 139731-11-03 14:59:00 Test Item Value Reference Range Interpretation Comments Hgb (test code = Hgb) 10.2 11.7-15.5 [place] 139731-11-03 14:59:00 Test Item Value Reference Range Interpretation Comments Hct (test code = Hct) 33.2 35.0-45.0 [place] 139731-11-03 14:59:00 Test Item Value Reference Range Interpretation Comments MCV (test code = MCV) 89.7 80.0-100.0 [place] [address]-11-03 14:59:00 Test Item Value Reference Range Interpretation Comments MCH (test code = MCH) 27.6 pg 27.0-33.0 [place] [address]-11-03 14:59:00 Test Item Value Reference Range Interpretation Comments MCHC (test code = MCHC) 30.7 32.0-36.0 [place] [address]-11-03 14:59:00 Test Item Value Reference Range Interpretation Comments RDW (test code = RDW) 15.0 11.0-15.0 [place] [address]-11-03 14:59:00 Test Item Value Reference Range Interpretation Comments Platelet (test code = Platelet) 727 140-400 [facility] CentralOuonzrgCICKYWJOOF3355-22-92 14:59:00 Test Item Value Reference Range Interpretation Comments MPV (test code = MPV) 11.0 7.5-12.5 [place] [address]-11-03 14:59:00 Test Item Value Reference Range Interpretation Comments Neutrophils # (test code = Neutrophils 6743 1382-5950 #) [facility] CentralDulyovhBHSTUKRGLF1996-65-20 14:59:00 Test Item Value Reference Range Interpretation Comments Lymphocytes # (test code = Lymphocytes 7744 376-5593 #) [place] [address]-11-03 14:59:00 Test Item Value Reference Range Interpretation Comments Monocytes # (test code = Monocytes #) 619 200-950 [place] 139731-11-03 14:59:00 Test Item Value Reference Range Interpretation Comments Eosinophils # (test code = Eosinophils 164 15-500 #) [facility] CentralMyfbvlyUUFTMJNOIY8516-70-40 14:59:00 Test Item Value Reference Range Interpretation Comments Basophils # (test code 82 See_Comment [Aut omated message] The = Basophils #) system which generated this result tra nsmitted reference range : <=200. The reference r arelis was not used to int erpret this result as normal/abnormal . [facility] CentralCiovytsYVOQONQJWV8933-44-66 14:59:00 Test Item Value Reference Range Interpretation Comments Segs (test code = Segs) 74.1 [place] 139731-11-03 14:59:00 Test Item Value Reference Range Interpretation Comments Lymphocytes (test code = Lymphocytes) 16.4 [place] 139731-11-03 14:59:00 Test Item Value Reference Range Interpretation Comments Monocytes (test code = Monocytes) 6.8 [place] 139731-11-03 14:59:00 Test Item Value Reference Range Interpretation Comments Eosinophils (test code = Eosinophils) 1.8 [facility] CentralLesezwaLWWZSDPZCM7806-19-58 14:59:00 Test Item Value Reference Range Interpretation Comments Basophils (test code = Basophils) 0.9 [facility] [id number] 14:59:00 Test Item Value Reference Range Interpretation Comments Result 2 (Urine Culture) See Result Comment (test code = Result 2 (Urine Culture)) [facility] [id number] 14:59:00 Test Item Value Reference Range Interpretation Comments Glucose Lvl (test code = Glucose Lvl) 101 65-99 [facility] [facility] [id number] 14:59:00 Test Item Value Reference Range Interpretation Comments BUN (test code = BUN) 9 7-25 [facility] [id number] 14:59:00 Test Item Value Reference Range Interpretation Comments Creatinine Lvl (test code = Creatinine 0.72 0.50-0.99 Lvl) [facility] [id number] 14:59:00 Test Item Value Reference Range Interpretation Comments eGFR NON-AFR. ARMENIAN (test code = 86 eGFR NON-AFR. ARMENIAN) [facility] [id number] 14:59:00 Test Item Value Reference Range Interpretation Comments eGFR (test code = eGFR 100 ) [facility] [id number] 14:59:00 Test Item Value Reference Range Interpretation Comments B/C Ratio (test code = B/C NOT APPLICABLE 6-22 Ratio) [place] 853501-11-03 14:59:00 Test Item Value Reference Range Interpretation Comments Sodium Lvl (test code = Sodium Lvl) 139 135-146 [place] 853501-11-03 14:59:00 Test Item Value Reference Range Interpretation Comments Potassium Lvl (test code = Potassium 4.2 3.5-5.3 Lvl) [place] 853501-11-03 14:59:00 Test Item Value Reference Range Interpretation Comments Chloride Lvl (test code = Chloride Lvl) 108 98-110 [place] 853501-11-03 14:59:00 Test Item Value Reference Range Interpretation Comments CO2 (test code = CO2) 23 20-32 [place] [address]-11-03 14:59:00 Test Item Value Reference Range Interpretation Comments Calcium Lvl (test code = Calcium Lvl) 9.6 8.6-10.4 [place] 139731-11-03 14:59:00 Test Item Value Reference Range Interpretation Comments WBC X 10x3 (test code = WBC X 10x3) 9.1 3.8-10.8 [place] [address]-11-03 14:59:00 Test Item Value Reference Range Interpretation Comments RBC X 10x6 (test code = RBC X 10x6) 3.70 3.80-5.10 [place] 139731-11-03 14:59:00 Test Item Value Reference Range Interpretation Comments Hgb (test code = Hgb) 10.2 11.7-15.5 [place] [address]-11-03 14:59:00 Test Item Value Reference Range Interpretation Comments Hct (test code = Hct) 33.2 35.0-45.0 [place] [address]-11-03 14:59:00 Test Item Value Reference Range Interpretation Comments MCV (test code = MCV) 89.7 80.0-100.0 [place] [address]-11-03 14:59:00 Test Item Value Reference Range Interpretation Comments MCH (test code = MCH) 27.6 pg 27.0-33.0 [place] [address]-11-03 14:59:00 Test Item Value Reference Range Interpretation Comments MCHC (test code = MCHC) 30.7 32.0-36.0 [place] [address]-11-03 14:59:00 Test Item Value Reference Range Interpretation Comments RDW (test code = RDW) 15.0 11.0-15.0 [place] 139731-11-03 14:59:00 Test Item Value Reference Range Interpretation Comments Platelet (test code = Platelet) 727 140-400 [place] 139731-11-03 14:59:00 Test Item Value Reference Range Interpretation Comments MPV (test code = MPV) 11.0 7.5-12.5 [place] 139731-11-03 14:59:00 Test Item Value Reference Range Interpretation Comments Neutrophils # (test code = Neutrophils 6743 7897-5905 #) [place] 139731-11-03 14:59:00 Test Item Value Reference Range Interpretation Comments Lymphocytes # (test code = Lymphocytes 3811 192-3439 #) [place] 139731-11-03 14:59:00 Test Item Value Reference Range Interpretation Comments Monocytes # (test code = Monocytes #) 619 200-950 [place] 139731-11-03 14:59:00 Test Item Value Reference Range Interpretation Comments Eosinophils # (test code = Eosinophils 164 15-500 #) [facility]NqmgkifMXFQKQBWMS3364-92-20 14:59:00 Test Item Value Reference Range Interpretation Comments Basophils # (test code 82 See_Comment [Aut omated message] The = Basophils #) system which generated this result tra nsmitted reference range : <=200. The reference r arelis was not used to int erpret this result as normal/abnormal . [facility] CentralIcsorieQCLESCNEAP8810-06-91 14:59:00 Test Item Value Reference Range Interpretation Comments Segs (test code = Segs) 74.1 [place] 139731-11-03 14:59:00 Test Item Value Reference Range Interpretation Comments Lymphocytes (test code = Lymphocytes) 16.4 [place] [address]-11-03 14:59:00 Test Item Value Reference Range Interpretation Comments Monocytes (test code = Monocytes) 6.8 [place] 139731-11-03 14:59:00 Test Item Value Reference Range Interpretation Comments Eosinophils (test code = Eosinophils) 1.8 [place] 139731-11-03 14:59:00 Test Item Value Reference Range Interpretation Comments Basophils (test code = Basophils) 0.9 [facility] [id number] 14:59:00 Test Item Value Reference Range Interpretation Comments Result 2 (Urine Culture) See Result Comment (test code = Result 2 (Urine Culture)) [place] 853501-11-03 14:59:00 Test Item Value Reference Range Interpretation Comments Glucose Lvl (test code = Glucose Lvl) 101 65-99 [place] 853501-11-03 14:59:00 Test Item Value Reference Range Interpretation Comments BUN (test code = BUN) 9 7-25 [place] 853501-11-03 14:59:00 Test Item Value Reference Range Interpretation Comments Creatinine Lvl (test code = Creatinine 0.72 0.50-0.99 Lvl) [place] 853501-11-03 14:59:00 Test Item Value Reference Range Interpretation Comments eGFR NON-AFR. ARMENIAN (test code = 86 eGFR NON-AFR. ARMENIAN) [place] 853501-11-03 14:59:00 Test Item Value Reference Range Interpretation Comments eGFR (test code = eGFR 100 ) [place] 853501-11-03 14:59:00 Test Item Value Reference Range Interpretation Comments B/C Ratio (test code = B/C NOT APPLICABLE 6-22 Ratio) [facility]2021-11-03 14:59:00 Test Item Value Reference Range Interpretation Comments Sodium Lvl (test code = Sodium Lvl) 139 135-146 [facility]2021-11-03 14:59:00 Test Item Value Reference Range Interpretation Comments Potassium Lvl (test code = Potassium 4.2 3.5-5.3 Lvl) [facility]2021-11-03 14:59:00 Test Item Value Reference Range Interpretation Comments Chloride Lvl (test code = Chloride Lvl) 108 98-110 [place] 853501-11-03 14:59:00 Test Item Value Reference Range Interpretation Comments CO2 (test code = CO2) 23 20-32 [place] 853501-11-03 14:59:00 Test Item Value Reference Range Interpretation Comments Calcium Lvl (test code = Calcium Lvl) 9.6 8.6-10.4 [facility]vwavlHYRJJIOFFP4915-61-25 14:59:00 Test Item Value Reference Range Interpretation Comments WBC X 10x3 (test code = WBC X 10x3) 9.1 3.8-10.8 [facility] CentralWgdlnpqAKBTYDLIHV7251-80-22 14:59:00 Test Item Value Reference Range Interpretation Comments RBC X 10x6 (test code = RBC X 10x6) 3.70 3.80-5.10 [facility] CentralVwglzxpLYDJVAQSDN4201-53-74 14:59:00 Test Item Value Reference Range Interpretation Comments Hgb (test code = Hgb) 10.2 11.7-15.5 [facility] CentralDcmnwnxOHUJKVUVQT4816-39-98 14:59:00 Test Item Value Reference Range Interpretation Comments Hct (test code = Hct) 33.2 35.0-45.0 [facility] CentralYjjlguuLDLMALKCPM3647-24-12 14:59:00 Test Item Value Reference Range Interpretation Comments MCV (test code = MCV) 89.7 80.0-100.0 [place] 139731-11-03 14:59:00 Test Item Value Reference Range Interpretation Comments MCH (test code = MCH) 27.6 pg 27.0-33.0 [facility] CentralKrppvcdGGGLZOFVFI2868-91-67 14:59:00 Test Item Value Reference Range Interpretation Comments MCHC (test code = MCHC) 30.7 32.0-36.0 [facility] CentralWlettebQPLLCBUAYA8474-38-83 14:59:00 Test Item Value Reference Range Interpretation Comments RDW (test code = RDW) 15.0 11.0-15.0 [facility] CentralZgepdctYMVQXEMHNY1385-61-16 14:59:00 Test Item Value Reference Range Interpretation Comments Platelet (test code = Platelet) 727 140-400 [facility] CentralQcnxggwCJZLUCGCQL4144-98-33 14:59:00 Test Item Value Reference Range Interpretation Comments MPV (test code = MPV) 11.0 7.5-12.5 [place] 139731-11-03 14:59:00 Test Item Value Reference Range Interpretation Comments Neutrophils # (test code = Neutrophils 4043 6345-6083 #) [facility] CentralWcpcqivAZLRZGURQY5528-91-70 14:59:00 Test Item Value Reference Range Interpretation Comments Lymphocytes # (test code = Lymphocytes 6289 071-6971 #) [facility] CentralCqzmytpYZKWZQXXIW3750-78-62 14:59:00 Test Item Value Reference Range Interpretation Comments Monocytes # (test code = Monocytes #) 619 200-950 [facility] CampusIochzjlGZAWAKCTDJ3785-19-57 14:59:00 Test Item Value Reference Range Interpretation Comments Eosinophils # (test code = Eosinophils 164 15-500 #) [facility]borFmvdihwRDHFLMTSZK3103-12-30 14:59:00 Test Item Value Reference Range Interpretation Comments Basophils # (test code 82 See_Comment [Aut omated message] The = Basophils #) system which generated this result tra nsmitted reference range : <=200. The reference r arelis was not used to int erpret this result as normal/abnormal . [facility] CampusOcdtsrfODZBUAFADS5437-65-58 14:59:00 Test Item Value Reference Range Interpretation Comments Segs (test code = Segs) 74.1 [facility] CentralMxxeohzNZOSJNMIRO0637-32-51 14:59:00 Test Item Value Reference Range Interpretation Comments Lymphocytes (test code = Lymphocytes) 16.4 [facility]borQvehywfZGESMQGHDI7383-16-44 14:59:00 Test Item Value Reference Range Interpretation Comments Monocytes (test code = Monocytes) 6.8 [facility] CampusItpraxhQCVUUWKQVC1881-44-24 14:59:00 Test Item Value Reference Range Interpretation Comments Eosinophils (test code = Eosinophils) 1.8 [facility] CampusYbcyajmUIDDSKNJIG3028-64-69 14:59:00 Test Item Value Reference Range Interpretation Comments Basophils (test code = Basophils) 0.9 [facility] IOOGVLF1374-20-37 14:59:00 Test Item Value Reference Range Interpretation Comments Result 2 (Urine Culture) See Result Comment (test code = Result 2 (Urine Culture)) [facility] [id number] 14:59:00 Test Item Value Reference Range Interpretation Comments Glucose Lvl (test code = Glucose Lvl) 101 65-99 [facility] UNHTO0572-83-23 14:59:00 Test Item Value Reference Range Interpretation Comments BUN (test code = BUN) 9 7-25 [facility] [id number] 14:59:00 Test Item Value Reference Range Interpretation Comments Creatinine Lvl (test code = Creatinine 0.72 0.50-0.99 Lvl) [facility] SJCUK2034-99-51 14:59:00 Test Item Value Reference Range Interpretation Comments eGFR NON-AFR. ARMENIAN (test code = 86 eGFR NON-AFR. ARMENIAN) [place] 853501-11-03 14:59:00 Test Item Value Reference Range Interpretation Comments eGFR (test code = eGFR 100 ) [place] 853501-11-03 14:59:00 Test Item Value Reference Range Interpretation Comments B/C Ratio (test code = B/C NOT APPLICABLE 6-22 Ratio) [place] 853501-11-03 14:59:00 Test Item Value Reference Range Interpretation Comments Sodium Lvl (test code = Sodium Lvl) 139 135-146 [place] 853501-11-03 14:59:00 Test Item Value Reference Range Interpretation Comments Potassium Lvl (test code = Potassium 4.2 3.5-5.3 Lvl) [place] 853501-11-03 14:59:00 Test Item Value Reference Range Interpretation Comments Chloride Lvl (test code = Chloride Lvl) 108 98-110 [place] 853501-11-03 14:59:00 Test Item Value Reference Range Interpretation Comments CO2 (test code = CO2) 23 20-32 [place] [address]-11-03 14:59:00 Test Item Value Reference Range Interpretation Comments Calcium Lvl (test code = Calcium Lvl) 9.6 8.6-10.4 [place] 139731-11-03 14:59:00 Test Item Value Reference Range Interpretation Comments WBC X 10x3 (test code = WBC X 10x3) 9.1 3.8-10.8 [place] [address]-11-03 14:59:00 Test Item Value Reference Range Interpretation Comments RBC X 10x6 (test code = RBC X 10x6) 3.70 3.80-5.10 [place] 139731-11-03 14:59:00 Test Item Value Reference Range Interpretation Comments Hgb (test code = Hgb) 10.2 11.7-15.5 [place] [address]-11-03 14:59:00 Test Item Value Reference Range Interpretation Comments Hct (test code = Hct) 33.2 35.0-45.0 [place] [address]-11-03 14:59:00 Test Item Value Reference Range Interpretation Comments MCV (test code = MCV) 89.7 80.0-100.0 [place] [address]-11-03 14:59:00 Test Item Value Reference Range Interpretation Comments MCH (test code = MCH) 27.6 pg 27.0-33.0 [place] 139731-11-03 14:59:00 Test Item Value Reference Range Interpretation Comments MCHC (test code = MCHC) 30.7 32.0-36.0 [facility] CentralTrhucddTYQBWQCJHQ5585-07-25 14:59:00 Test Item Value Reference Range Interpretation Comments RDW (test code = RDW) 15.0 11.0-15.0 [place] 139731-11-03 14:59:00 Test Item Value Reference Range Interpretation Comments Platelet (test code = Platelet) 727 140-400 [place] 139731-11-03 14:59:00 Test Item Value Reference Range Interpretation Comments MPV (test code = MPV) 11.0 7.5-12.5 [facility] CentralXnjcekyOQVOWTSWWE1369-88-02 14:59:00 Test Item Value Reference Range Interpretation Comments Neutrophils # (test code = Neutrophils 6743 5564-7802 #) [facility] CentralAtcecuhXKCKESDKGT0503-65-06 14:59:00 Test Item Value Reference Range Interpretation Comments Lymphocytes # (test code = Lymphocytes 8623 839-2584 #) [facility] CentralQxmtfttNPQDCPSGWF6455-50-66 14:59:00 Test Item Value Reference Range Interpretation Comments Monocytes # (test code = Monocytes #) 619 200-950 [facility] CentralKgzulniCWCLMFNCAF6758-75-46 14:59:00 Test Item Value Reference Range Interpretation Comments Eosinophils # (test code = Eosinophils 164 15-500 #) [facility] CentralAiulmlyVRUQZNSWFX2750-27-00 14:59:00 Test Item Value Reference Range Interpretation Comments Basophils # (test code 82 See_Comment [Aut omated message] The = Basophils #) system which generated this result tra nsmitted reference range : <=200. The reference r arelis was not used to int erpret this result as normal/abnormal . [facility] CentralFktxhfsVEUJAJUMXQ4230-56-27 14:59:00 Test Item Value Reference Range Interpretation Comments Segs (test code = Segs) 74.1 [place] 139731-11-03 14:59:00 Test Item Value Reference Range Interpretation Comments Lymphocytes (test code = Lymphocytes) 16.4 [place] 139731-11-03 14:59:00 Test Item Value Reference Range Interpretation Comments Monocytes (test code = Monocytes) 6.8 [facility]borBugwewoOCTZKQDHYV8897-41-25 14:59:00 Test Item Value Reference Range Interpretation Comments Eosinophils (test code = Eosinophils) 1.8 [facility] CentralThraleqDSWIBGYBAW7199-05-98 14:59:00 Test Item Value Reference Range Interpretation Comments Basophils (test code = Basophils) 0.9 [facility] [id number] 14:59:00 Test Item Value Reference Range Interpretation Comments Result 2 (Urine Culture) See Result Comment (test code = Result 2 (Urine Culture)) [place] 853501-11-03 14:59:00 Test Item Value Reference Range Interpretation Comments Glucose Lvl (test code = Glucose Lvl) 101 65-99 [place] 853501-11-03 14:59:00 Test Item Value Reference Range Interpretation Comments BUN (test code = BUN) 9 7-25 [place] 853501-11-03 14:59:00 Test Item Value Reference Range Interpretation Comments Creatinine Lvl (test code = Creatinine 0.72 0.50-0.99 Lvl) [place] 853501-11-03 14:59:00 Test Item Value Reference Range Interpretation Comments eGFR NON-AFR. ARMENIAN (test code = 86 eGFR NON-AFR. ARMENIAN) [facility]2021-11-03 14:59:00 Test Item Value Reference Range Interpretation Comments eGFR (test code = eGFR 100 ) [place] 853501-11-03 14:59:00 Test Item Value Reference Range Interpretation Comments B/C Ratio (test code = B/C NOT APPLICABLE 6-22 Ratio) [place] 853501-11-03 14:59:00 Test Item Value Reference Range Interpretation Comments Sodium Lvl (test code = Sodium Lvl) 139 135-146 [place] 853501-11-03 14:59:00 Test Item Value Reference Range Interpretation Comments Potassium Lvl (test code = Potassium 4.2 3.5-5.3 Lvl) [place] 853501-11-03 14:59:00 Test Item Value Reference Range Interpretation Comments Chloride Lvl (test code = Chloride Lvl) 108 98-110 [place] 853501-11-03 14:59:00 Test Item Value Reference Range Interpretation Comments CO2 (test code = CO2) 23 20-32 [facility]2021-11-03 14:59:00 Test Item Value Reference Range Interpretation Comments Calcium Lvl (test code = Calcium Lvl) 9.6 8.6-10.4 [facility] CentralQcdondbCDHLAKNQBM7311-41-82 14:59:00 Test Item Value Reference Range Interpretation Comments WBC X 10x3 (test code = WBC X 10x3) 9.1 3.8-10.8 [facility] CentralOvlihuzMSTPIEDHCP0185-33-17 14:59:00 Test Item Value Reference Range Interpretation Comments RBC X 10x6 (test code = RBC X 10x6) 3.70 3.80-5.10 [place] 139731-11-03 14:59:00 Test Item Value Reference Range Interpretation Comments Hgb (test code = Hgb) 10.2 11.7-15.5 [facility] CentralKysebtaHEAKJFBOYB5917-82-73 14:59:00 Test Item Value Reference Range Interpretation Comments Hct (test code = Hct) 33.2 35.0-45.0 [facility] CentralUtwxignCOSUFEACYR8758-35-53 14:59:00 Test Item Value Reference Range Interpretation Comments MCV (test code = MCV) 89.7 80.0-100.0 [facility] CentralYmfshitJROUJZQPYY0040-54-87 14:59:00 Test Item Value Reference Range Interpretation Comments MCH (test code = MCH) 27.6 pg 27.0-33.0 [facility] CentralXocnyhpMXCOCEWOGA7515-10-92 14:59:00 Test Item Value Reference Range Interpretation Comments MCHC (test code = MCHC) 30.7 32.0-36.0 [facility] CentralQgpuzabUEMESBGZQH6440-15-20 14:59:00 Test Item Value Reference Range Interpretation Comments RDW (test code = RDW) 15.0 11.0-15.0 [place] 139731-11-03 14:59:00 Test Item Value Reference Range Interpretation Comments Platelet (test code = Platelet) 727 140-400 [facility] CentralTspvqfnQSKOPNYXDQ6207-81-61 14:59:00 Test Item Value Reference Range Interpretation Comments MPV (test code = MPV) 11.0 7.5-12.5 [facility] CentralBpeeivwHXKWKWGULY4361-60-20 14:59:00 Test Item Value Reference Range Interpretation Comments Neutrophils # (test code = Neutrophils 6743 7304-1065 #) [facility]borJfccyioDAIEADEYXU8268-03-43 14:59:00 Test Item Value Reference Range Interpretation Comments Lymphocytes # (test code = Lymphocytes 5916 441-9312 #) [facility] ArborLmxibaeKTFVPJUMTX4039-13-02 14:59:00 Test Item Value Reference Range Interpretation Comments Monocytes # (test code = Monocytes #) 619 200-950 [facility] ArborUzljpncJGTPPLXBHM4106-88-96 14:59:00 Test Item Value Reference Range Interpretation Comments Eosinophils # (test code = Eosinophils 164 15-500 #) [facility] CentralNmoyrlpNZRQBFQETP3651-33-54 14:59:00 Test Item Value Reference Range Interpretation Comments Basophils # (test code 82 See_Comment [Aut omated message] The = Basophils #) system which generated this result tra nsmitted reference range : <=200. The reference r arelis was not used to int erpret this result as normal/abnormal . [facility] CentralGhfctkuRASAETLQVY5306-14-19 14:59:00 Test Item Value Reference Range Interpretation Comments Segs (test code = Segs) 74.1 [facility] CentralNxvmzanNJVGAYMHUP0117-17-56 14:59:00 Test Item Value Reference Range Interpretation Comments Lymphocytes (test code = Lymphocytes) 16.4 [facility] CentralPsxdbghGERPTBCLBN3531-05-78 14:59:00 Test Item Value Reference Range Interpretation Comments Monocytes (test code = Monocytes) 6.8 [facility] CentralNggnnpoBULALLGBRX5648-39-59 14:59:00 Test Item Value Reference Range Interpretation Comments Eosinophils (test code = Eosinophils) 1.8 [facility] CentralEfegipfEYHMANACAY1824-69-02 14:59:00 Test Item Value Reference Range Interpretation Comments Basophils (test code = Basophils) 0.9 [facility] SZLVRRC8467-35-12 14:59:00 Test Item Value Reference Range Interpretation Comments Result 2 (Urine Culture) See Result Comment (test code = Result 2 (Urine Culture)) [facility] NIQEW3271-58-17 14:59:00 Test Item Value Reference Range Interpretation Comments Glucose Lvl (test code = Glucose Lvl) 101 65-99 [facility]2021-11-03 14:59:00 Test Item Value Reference Range Interpretation Comments BUN (test code = BUN) 9 7-25 [facility]2021-11-03 14:59:00 Test Item Value Reference Range Interpretation Comments Creatinine Lvl (test code = Creatinine 0.72 0.50-0.99 Lvl) [place] [address]-11-03 14:59:00 Test Item Value Reference Range Interpretation Comments eGFR NON-AFR. ARMENIAN (test code = 86 eGFR NON-AFR. ARMENIAN) [place] 853501-11-03 14:59:00 Test Item Value Reference Range Interpretation Comments eGFR (test code = eGFR 100 ) [place] [address]-11-03 14:59:00 Test Item Value Reference Range Interpretation Comments B/C Ratio (test code = B/C NOT APPLICABLE 6-22 Ratio) [place] 853501-11-03 14:59:00 Test Item Value Reference Range Interpretation Comments Sodium Lvl (test code = Sodium Lvl) 139 135-146 [place] 853501-11-03 14:59:00 Test Item Value Reference Range Interpretation Comments Potassium Lvl (test code = Potassium 4.2 3.5-5.3 Lvl) [place] 853501-11-03 14:59:00 Test Item Value Reference Range Interpretation Comments Chloride Lvl (test code = Chloride Lvl) 108 98-110 [place] 853501-11-03 14:59:00 Test Item Value Reference Range Interpretation Comments CO2 (test code = CO2) 23 20-32 [place] 853501-11-03 14:59:00 Test Item Value Reference Range Interpretation Comments Calcium Lvl (test code = Calcium Lvl) 9.6 8.6-10.4 [place] 139731-11-03 14:59:00 Test Item Value Reference Range Interpretation Comments WBC X 10x3 (test code = WBC X 10x3) 9.1 3.8-10.8 [place] [address]-11-03 14:59:00 Test Item Value Reference Range Interpretation Comments RBC X 10x6 (test code = RBC X 10x6) 3.70 3.80-5.10 [place] [address]-11-03 14:59:00 Test Item Value Reference Range Interpretation Comments Hgb (test code = Hgb) 10.2 11.7-15.5 [place] 139731-11-03 14:59:00 Test Item Value Reference Range Interpretation Comments Hct (test code = Hct) 33.2 35.0-45.0 [place] 139731-11-03 14:59:00 Test Item Value Reference Range Interpretation Comments MCV (test code = MCV) 89.7 80.0-100.0 [place] 139731-11-03 14:59:00 Test Item Value Reference Range Interpretation Comments MCH (test code = MCH) 27.6 pg 27.0-33.0 [place] 139731-11-03 14:59:00 Test Item Value Reference Range Interpretation Comments MCHC (test code = MCHC) 30.7 32.0-36.0 [place] 139731-11-03 14:59:00 Test Item Value Reference Range Interpretation Comments RDW (test code = RDW) 15.0 11.0-15.0 [place] [address]-11-03 14:59:00 Test Item Value Reference Range Interpretation Comments Platelet (test code = Platelet) 727 140-400 [facility] CentralUnyzscwSHJESPLQWU6743-08-59 14:59:00 Test Item Value Reference Range Interpretation Comments MPV (test code = MPV) 11.0 7.5-12.5 [place] 139731-11-03 14:59:00 Test Item Value Reference Range Interpretation Comments Neutrophils # (test code = Neutrophils 6743 7168-6509 #) [facility] CentralNlpsokgGXFKPBACCQ2707-88-53 14:59:00 Test Item Value Reference Range Interpretation Comments Lymphocytes # (test code = Lymphocytes 7221 117-1573 #) [facility] CentralXpavrdeDZXHPYWBVR1279-85-45 14:59:00 Test Item Value Reference Range Interpretation Comments Monocytes # (test code = Monocytes #) 619 200-950 [place] 139731-11-03 14:59:00 Test Item Value Reference Range Interpretation Comments Eosinophils # (test code = Eosinophils 164 15-500 #) [facility] CentralEiciklqFPJEEATZYI7465-29-63 14:59:00 Test Item Value Reference Range Interpretation Comments Basophils # (test code 82 See_Comment [Aut omated message] The = Basophils #) system which generated this result tra nsmitted reference range : <=200. The reference r arelis was not used to int erpret this result as normal/abnormal . [facility] CentralMgykoqlMMGUJGMKCN3531-65-13 14:59:00 Test Item Value Reference Range Interpretation Comments Segs (test code = Segs) 74.1 [place] 139731-11-03 14:59:00 Test Item Value Reference Range Interpretation Comments Lymphocytes (test code = Lymphocytes) 16.4 [place] 139731-11-03 14:59:00 Test Item Value Reference Range Interpretation Comments Monocytes (test code = Monocytes) 6.8 [place] 139731-11-03 14:59:00 Test Item Value Reference Range Interpretation Comments Eosinophils (test code = Eosinophils) 1.8 [place] 139731-11-03 14:59:00 Test Item Value Reference Range Interpretation Comments Basophils (test code = Basophils) 0.9 [facility] [id number] 14:59:00 Test Item Value Reference Range Interpretation Comments Result 2 (Urine Culture) See Result Comment (test code = Result 2 (Urine Culture)) [facility]2021-11-03 14:59:00 Test Item Value Reference Range Interpretation Comments Glucose Lvl (test code = Glucose Lvl) 101 65-99 [facility]2021-11-03 14:59:00 Test Item Value Reference Range Interpretation Comments BUN (test code = BUN) 9 7-25 [facility]2021-11-03 14:59:00 Test Item Value Reference Range Interpretation Comments Creatinine Lvl (test code = Creatinine 0.72 0.50-0.99 Lvl) [facility]2021-11-03 14:59:00 Test Item Value Reference Range Interpretation Comments eGFR NON-AFR. ARMENIAN (test code = 86 eGFR NON-AFR. ARMENIAN) [facility]2021-11-03 14:59:00 Test Item Value Reference Range Interpretation Comments eGFR (test code = eGFR 100 ) [facility]2021-11-03 14:59:00 Test Item Value Reference Range Interpretation Comments B/C Ratio (test code = B/C NOT APPLICABLE 622 Ratio) [place] 853501-11-03 14:59:00 Test Item Value Reference Range Interpretation Comments Sodium Lvl (test code = Sodium Lvl) 139 135-146 [facility]2021-11-03 14:59:00 Test Item Value Reference Range Interpretation Comments Potassium Lvl (test code = Potassium 4.2 3.5-5.3 Lvl) [place] 853501-11-03 14:59:00 Test Item Value Reference Range Interpretation Comments Chloride Lvl (test code = Chloride Lvl) 108 98-110 [place] 853501-11-03 14:59:00 Test Item Value Reference Range Interpretation Comments CO2 (test code = CO2) 23 20-32 [place] 853501-11-03 14:59:00 Test Item Value Reference Range Interpretation Comments Calcium Lvl (test code = Calcium Lvl) 9.6 8.6-10.4 [place] [address]-11-03 14:59:00 Test Item Value Reference Range Interpretation Comments WBC X 10x3 (test code = WBC X 10x3) 9.1 3.8-10.8 [place] [address]-11-03 14:59:00 Test Item Value Reference Range Interpretation Comments RBC X 10x6 (test code = RBC X 10x6) 3.70 3.80-5.10 [place] 139731-11-03 14:59:00 Test Item Value Reference Range Interpretation Comments Hgb (test code = Hgb) 10.2 11.7-15.5 [place] 139731-11-03 14:59:00 Test Item Value Reference Range Interpretation Comments Hct (test code = Hct) 33.2 35.0-45.0 [place] [address]-11-03 14:59:00 Test Item Value Reference Range Interpretation Comments MCV (test code = MCV) 89.7 80.0-100.0 [place] [address]-11-03 14:59:00 Test Item Value Reference Range Interpretation Comments MCH (test code = MCH) 27.6 pg 27.0-33.0 [place] [address]-11-03 14:59:00 Test Item Value Reference Range Interpretation Comments MCHC (test code = MCHC) 30.7 32.0-36.0 [place] [address]-11-03 14:59:00 Test Item Value Reference Range Interpretation Comments RDW (test code = RDW) 15.0 11.0-15.0 [place] [address]-11-03 14:59:00 Test Item Value Reference Range Interpretation Comments Platelet (test code = Platelet) 727 140-400 [facility]KmlktpuKCUYEGSMYU2289-66-80 14:59:00 Test Item Value Reference Range Interpretation Comments MPV (test code = MPV) 11.0 7.5-12.5 [facility]borHdgqfaoOYHSQMLVKV9090-05-72 14:59:00 Test Item Value Reference Range Interpretation Comments Neutrophils # (test code = Neutrophils 6743 3959-6908 #) [facility]WzcnmtoRSSRVLMJAL1323-93-48 14:59:00 Test Item Value Reference Range Interpretation Comments Lymphocytes # (test code = Lymphocytes 1796 532-8107 #) [facility] CampusFmcbixtGOWFJJUOWO9001-75-19 14:59:00 Test Item Value Reference Range Interpretation Comments Monocytes # (test code = Monocytes #) 619 200-950 [facility]borVgsnotgWDFBTPFYJU9792-79-65 14:59:00 Test Item Value Reference Range Interpretation Comments Eosinophils # (test code = Eosinophils 164 15-500 #) [facility]borSibulugWQUNMPZAVS7779-66-51 14:59:00 Test Item Value Reference Range Interpretation Comments Basophils # (test code 82 See_Comment [Aut omated message] The = Basophils #) system which generated this result tra nsmitted reference range : <=200. The reference r arelis was not used to int erpret this result as normal/abnormal . [facility]borCziswroXXXSARKYLY7359-82-62 14:59:00 Test Item Value Reference Range Interpretation Comments Segs (test code = Segs) 74.1 [facility] CentralFunylzzWREIVTECHC7562-45-66 14:59:00 Test Item Value Reference Range Interpretation Comments Lymphocytes (test code = Lymphocytes) 16.4 [facility]borSmnjbnyWKTGAFZAEC4215-03-54 14:59:00 Test Item Value Reference Range Interpretation Comments Monocytes (test code = Monocytes) 6.8 [facility]borGelnmunRXEOMJVQSX3189-59-35 14:59:00 Test Item Value Reference Range Interpretation Comments Eosinophils (test code = Eosinophils) 1.8 [facility]borGkwuzqlUMOKVMJURV0753-72-45 14:59:00 Test Item Value Reference Range Interpretation Comments Basophils (test code = Basophils) 0.9 [facility] [id number] 14:59:00 Test Item Value Reference Range Interpretation Comments Result 2 (Urine Culture) See Result Comment (test code = Result 2 (Urine Culture)) [place] 853501-11-03 14:59:00 Test Item Value Reference Range Interpretation Comments Glucose Lvl (test code = Glucose Lvl) 101 65-99 [place] 853501-11-03 14:59:00 Test Item Value Reference Range Interpretation Comments BUN (test code = BUN) 9 7-25 [place] 853501-11-03 14:59:00 Test Item Value Reference Range Interpretation Comments Creatinine Lvl (test code = Creatinine 0.72 0.50-0.99 Lvl) [place] 853501-11-03 14:59:00 Test Item Value Reference Range Interpretation Comments eGFR NON-AFR. ARMENIAN (test code = 86 eGFR NON-AFR. ARMENIAN) [place] 853501-11-03 14:59:00 Test Item Value Reference Range Interpretation Comments eGFR (test code = eGFR 100 ) [place] [address]-11-03 14:59:00 Test Item Value Reference Range Interpretation Comments B/C Ratio (test code = B/C NOT APPLICABLE 6-22 Ratio) [place] 853501-11-03 14:59:00 Test Item Value Reference Range Interpretation Comments Sodium Lvl (test code = Sodium Lvl) 139 135-146 [place] 853501-11-03 14:59:00 Test Item Value Reference Range Interpretation Comments Potassium Lvl (test code = Potassium 4.2 3.5-5.3 Lvl) [place] 853501-11-03 14:59:00 Test Item Value Reference Range Interpretation Comments Chloride Lvl (test code = Chloride Lvl) 108 98-110 [place] 853501-11-03 14:59:00 Test Item Value Reference Range Interpretation Comments CO2 (test code = CO2) 23 20-32 [place] 853501-11-03 14:59:00 Test Item Value Reference Range Interpretation Comments Calcium Lvl (test code = Calcium Lvl) 9.6 8.6-10.4 [place] 139731-11-03 14:59:00 Test Item Value Reference Range Interpretation Comments WBC X 10x3 (test code = WBC X 10x3) 9.1 3.8-10.8 [place] 139731-11-03 14:59:00 Test Item Value Reference Range Interpretation Comments RBC X 10x6 (test code = RBC X 10x6) 3.70 3.80-5.10 [facility] CentralSgrdwsnVRWDYOMKUJ3560-73-26 14:59:00 Test Item Value Reference Range Interpretation Comments Hgb (test code = Hgb) 10.2 11.7-15.5 [place] 139731-11-03 14:59:00 Test Item Value Reference Range Interpretation Comments Hct (test code = Hct) 33.2 35.0-45.0 [facility] CentralSoziikyCJQYTUYXBR2319-29-34 14:59:00 Test Item Value Reference Range Interpretation Comments MCV (test code = MCV) 89.7 80.0-100.0 [place] 139731-11-03 14:59:00 Test Item Value Reference Range Interpretation Comments MCH (test code = MCH) 27.6 pg 27.0-33.0 [place] 139731-11-03 14:59:00 Test Item Value Reference Range Interpretation Comments MCHC (test code = MCHC) 30.7 32.0-36.0 [facility] CentralOeulogeUFMIYUAFKT1656-10-35 14:59:00 Test Item Value Reference Range Interpretation Comments RDW (test code = RDW) 15.0 11.0-15.0 [facility] CentralBbiojtuUVPMSGMUXF1436-94-10 14:59:00 Test Item Value Reference Range Interpretation Comments Platelet (test code = Platelet) 727 140-400 [facility] CentralYhevxyyIZUPHUWISR9857-65-46 14:59:00 Test Item Value Reference Range Interpretation Comments MPV (test code = MPV) 11.0 7.5-12.5 [facility] CentralZtdctykVGBPOAMFJM1527-38-01 14:59:00 Test Item Value Reference Range Interpretation Comments Neutrophils # (test code = Neutrophils 6743 0866-3088 #) [facility] CentralKqomlrmRRWWBLJNDU9832-97-97 14:59:00 Test Item Value Reference Range Interpretation Comments Lymphocytes # (test code = Lymphocytes 3732 081-9888 #) [facility] CentralKaahpvfBJYYSLOZIG2679-15-91 14:59:00 Test Item Value Reference Range Interpretation Comments Monocytes # (test code = Monocytes #) 619 200-950 [place] 139731-11-03 14:59:00 Test Item Value Reference Range Interpretation Comments Eosinophils # (test code = Eosinophils 164 15-500 #) [place] 139731-11-03 14:59:00 Test Item Value Reference Range Interpretation Comments Basophils # (test code 82 See_Comment [Aut omated message] The = Basophils #) system which generated this result tra nsmitted reference range : <=200. The reference r arelis was not used to int erpret this result as normal/abnormal . [facility] CentralKptmdshWDSOETBXMT2281-26-59 14:59:00 Test Item Value Reference Range Interpretation Comments Segs (test code = Segs) 74.1 [facility] CentralPqzcxwtBOTJDPVLCH8156-12-07 14:59:00 Test Item Value Reference Range Interpretation Comments Lymphocytes (test code = Lymphocytes) 16.4 [place] 139731-11-03 14:59:00 Test Item Value Reference Range Interpretation Comments Monocytes (test code = Monocytes) 6.8 [facility] CentralYcdropyCVIFFCBVTV6330-32-70 14:59:00 Test Item Value Reference Range Interpretation Comments Eosinophils (test code = Eosinophils) 1.8 [facility] CentralVvcxixwUKXVURJSSX7809-75-94 14:59:00 Test Item Value Reference Range Interpretation Comments Basophils (test code = Basophils) 0.9 [facility] [id number] 14:59:00 Test Item Value Reference Range Interpretation Comments Result 2 (Urine Culture) See Result Comment (test code = Result 2 (Urine Culture)) [facility] CampusStyleFeeder OBGJW7518-09-87 14:59:00 Test Item Value Reference Range Interpretation Comments Glucose Lvl (test code = Glucose Lvl) 101 65-99 [facility] [id number] 14:59:00 Test Item Value Reference Range Interpretation Comments BUN (test code = BUN) 9 7-25 [facility] RBQJT7791-98-43 14:59:00 Test Item Value Reference Range Interpretation Comments Creatinine Lvl (test code = Creatinine 0.72 0.50-0.99 Lvl) [facility] YQUTC4546-02-47 14:59:00 Test Item Value Reference Range Interpretation Comments eGFR NON-AFR. ARMENIAN (test code = 86 eGFR NON-AFR. ARMENIAN) [facility] XDWCT0195-11-02 14:59:00 Test Item Value Reference Range Interpretation Comments eGFR (test code = eGFR 100 ) [facility] [id number] 14:59:00 Test Item Value Reference Range Interpretation Comments B/C Ratio (test code = B/C NOT APPLICABLE 6-22 Ratio) [place] 853501-11-03 14:59:00 Test Item Value Reference Range Interpretation Comments Sodium Lvl (test code = Sodium Lvl) 139 135-146 [place] 853501-11-03 14:59:00 Test Item Value Reference Range Interpretation Comments Potassium Lvl (test code = Potassium 4.2 3.5-5.3 Lvl) [place] 853501-11-03 14:59:00 Test Item Value Reference Range Interpretation Comments Chloride Lvl (test code = Chloride Lvl) 108 98-110 [place] 853501-11-03 14:59:00 Test Item Value Reference Range Interpretation Comments CO2 (test code = CO2) 23 20-32 [place] 853501-11-03 14:59:00 Test Item Value Reference Range Interpretation Comments Calcium Lvl (test code = Calcium Lvl) 9.6 8.6-10.4 [place] [address]-11-03 14:59:00 Test Item Value Reference Range Interpretation Comments WBC X 10x3 (test code = WBC X 10x3) 9.1 3.8-10.8 [place] [address]-11-03 14:59:00 Test Item Value Reference Range Interpretation Comments RBC X 10x6 (test code = RBC X 10x6) 3.70 3.80-5.10 [place] [address]-11-03 14:59:00 Test Item Value Reference Range Interpretation Comments Hgb (test code = Hgb) 10.2 11.7-15.5 [place] [address]-11-03 14:59:00 Test Item Value Reference Range Interpretation Comments Hct (test code = Hct) 33.2 35.0-45.0 [place] [address]-11-03 14:59:00 Test Item Value Reference Range Interpretation Comments MCV (test code = MCV) 89.7 80.0-100.0 [place] [address]-11-03 14:59:00 Test Item Value Reference Range Interpretation Comments MCH (test code = MCH) 27.6 pg 27.0-33.0 [place] [address]-11-03 14:59:00 Test Item Value Reference Range Interpretation Comments MCHC (test code = MCHC) 30.7 32.0-36.0 [facility] CentralWqntwraCLHCBYGOSM2189-03-24 14:59:00 Test Item Value Reference Range Interpretation Comments RDW (test code = RDW) 15.0 11.0-15.0 [place] 139731-11-03 14:59:00 Test Item Value Reference Range Interpretation Comments Platelet (test code = Platelet) 727 140-400 [facility] CentralIugvdlkUTKJNLYEBC3795-69-20 14:59:00 Test Item Value Reference Range Interpretation Comments MPV (test code = MPV) 11.0 7.5-12.5 [facility] CentralOwtfwldLVUJTWDXPH1032-86-14 14:59:00 Test Item Value Reference Range Interpretation Comments Neutrophils # (test code = Neutrophils 6743 2982-8020 #) [facility] CentralIvljwrcMKRPPBWLYF4262-90-88 14:59:00 Test Item Value Reference Range Interpretation Comments Lymphocytes # (test code = Lymphocytes 7703 325-3466 #) [facility] CentralNfitqxzZQYSODKNRU7534-90-25 14:59:00 Test Item Value Reference Range Interpretation Comments Monocytes # (test code = Monocytes #) 619 200-950 [place] 139731-11-03 14:59:00 Test Item Value Reference Range Interpretation Comments Eosinophils # (test code = Eosinophils 164 15-500 #) [facility] CentralUuqjcwhLSJYCVQHES6804-03-83 14:59:00 Test Item Value Reference Range Interpretation Comments Basophils # (test code 82 See_Comment [Aut omated message] The = Basophils #) system which generated this result tra nsmitted reference range : <=200. The reference r arelis was not used to int erpret this result as normal/abnormal . [facility] CentralVnljsgfKPDJRGSQDI7242-45-35 14:59:00 Test Item Value Reference Range Interpretation Comments Segs (test code = Segs) 74.1 [place] 139731-11-03 14:59:00 Test Item Value Reference Range Interpretation Comments Lymphocytes (test code = Lymphocytes) 16.4 [place] 139731-11-03 14:59:00 Test Item Value Reference Range Interpretation Comments Monocytes (test code = Monocytes) 6.8 [place] 139731-11-03 14:59:00 Test Item Value Reference Range Interpretation Comments Eosinophils (test code = Eosinophils) 1.8 [place] 139731-11-03 14:59:00 Test Item Value Reference Range Interpretation Comments Basophils (test code = Basophils) 0.9 [facility] [id number] 14:59:00 Test Item Value Reference Range Interpretation Comments Result 2 (Urine Culture) See Result Comment (test code = Result 2 (Urine Culture)) [place] 853501-11-03 14:59:00 Test Item Value Reference Range Interpretation Comments Glucose Lvl (test code = Glucose Lvl) 101 65-99 [place] 853501-11-03 14:59:00 Test Item Value Reference Range Interpretation Comments BUN (test code = BUN) 9 7-25 [place] 853501-11-03 14:59:00 Test Item Value Reference Range Interpretation Comments Creatinine Lvl (test code = Creatinine 0.72 0.50-0.99 Lvl) [place] 853501-11-03 14:59:00 Test Item Value Reference Range Interpretation Comments eGFR NON-AFR. ARMENIAN (test code = 86 eGFR NON-AFR. ARMENIAN) [place] 853501-11-03 14:59:00 Test Item Value Reference Range Interpretation Comments eGFR (test code = eGFR 100 ) [place] 853501-11-03 14:59:00 Test Item Value Reference Range Interpretation Comments B/C Ratio (test code = B/C NOT APPLICABLE 6-22 Ratio) [place] 853501-11-03 14:59:00 Test Item Value Reference Range Interpretation Comments Sodium Lvl (test code = Sodium Lvl) 139 135-146 [place] 853501-11-03 14:59:00 Test Item Value Reference Range Interpretation Comments Potassium Lvl (test code = Potassium 4.2 3.5-5.3 Lvl) [place] 853501-11-03 14:59:00 Test Item Value Reference Range Interpretation Comments Chloride Lvl (test code = Chloride Lvl) 108 98-110 [place] 853501-11-03 14:59:00 Test Item Value Reference Range Interpretation Comments CO2 (test code = CO2) 23 20-32 [place] 853501-11-03 14:59:00 Test Item Value Reference Range Interpretation Comments Calcium Lvl (test code = Calcium Lvl) 9.6 8.6-10.4 [facility] CentralWkhthfrIZDSHIIDTJ5387-09-66 14:59:00 Test Item Value Reference Range Interpretation Comments WBC X 10x3 (test code = WBC X 10x3) 9.1 3.8-10.8 [facility] CentralWjpqeltJUDGHHTDGW3204-03-88 14:59:00 Test Item Value Reference Range Interpretation Comments RBC X 10x6 (test code = RBC X 10x6) 3.70 3.80-5.10 [facility] CentralPizfaelFEKANZIDJU9479-02-01 14:59:00 Test Item Value Reference Range Interpretation Comments Hgb (test code = Hgb) 10.2 11.7-15.5 [facility] CentralCdclldmRGXURBSLOT2704-25-20 14:59:00 Test Item Value Reference Range Interpretation Comments Hct (test code = Hct) 33.2 35.0-45.0 [facility] CentralDnjjhmtUSNRTGLCHW3243-98-61 14:59:00 Test Item Value Reference Range Interpretation Comments MCV (test code = MCV) 89.7 80.0-100.0 [facility] CentralCqezvohIPVZKCSGYV4987-88-98 14:59:00 Test Item Value Reference Range Interpretation Comments MCH (test code = MCH) 27.6 pg 27.0-33.0 [facility] CentralCyuvmipPZSAYLGVGB9011-48-41 14:59:00 Test Item Value Reference Range Interpretation Comments MCHC (test code = MCHC) 30.7 32.0-36.0 [facility] CentralEtrvminXRKTWGFWTR9301-57-70 14:59:00 Test Item Value Reference Range Interpretation Comments RDW (test code = RDW) 15.0 11.0-15.0 [facility] CentralXxlebtlGTRYSVDBXX7708-23-14 14:59:00 Test Item Value Reference Range Interpretation Comments Platelet (test code = Platelet) 727 140-400 [facility] CentralAjtmycdPAHVYZAQXV7845-06-37 14:59:00 Test Item Value Reference Range Interpretation Comments MPV (test code = MPV) 11.0 7.5-12.5 [facility] CentralFsjlejyXEVDDNZQEF1357-73-70 14:59:00 Test Item Value Reference Range Interpretation Comments Neutrophils # (test code = Neutrophils 6743 9297-3146 #) [facility] CentralGndpgyhXWNRIVZZGM1969-27-07 14:59:00 Test Item Value Reference Range Interpretation Comments Lymphocytes # (test code = Lymphocytes 9139 126-1223 #) [place] 139731-11-03 14:59:00 Test Item Value Reference Range Interpretation Comments Monocytes # (test code = Monocytes #) 619 200-950 [place] 139731-11-03 14:59:00 Test Item Value Reference Range Interpretation Comments Eosinophils # (test code = Eosinophils 164 15-500 #) [place] 139731-11-03 14:59:00 Test Item Value Reference Range Interpretation Comments Basophils # (test code 82 See_Comment [Aut omated message] The = Basophils #) system which generated this result tra nsmitted reference range : <=200. The reference r arelis was not used to int erpret this result as normal/abnormal . [place] 139731-11-03 14:59:00 Test Item Value Reference Range Interpretation Comments Segs (test code = Segs) 74.1 [place] [address]-11-03 14:59:00 Test Item Value Reference Range Interpretation Comments Lymphocytes (test code = Lymphocytes) 16.4 [place] 853501-11-03 14:59:00 Test Item Value Reference Range Interpretation Comments Glucose Lvl (test code = Glucose Lvl) 101 65-99 [place] 853501-11-03 14:59:00 Test Item Value Reference Range Interpretation Comments BUN (test code = BUN) 9 7-25 [place] 853501-11-03 14:59:00 Test Item Value Reference Range Interpretation Comments Creatinine Lvl (test code = Creatinine 0.72 0.50-0.99 Lvl) [place] 853501-11-03 14:59:00 Test Item Value Reference Range Interpretation Comments eGFR NON-AFR. ARMENIAN (test code = 86 eGFR NON-AFR. ARMENIAN) [place] 853501-11-03 14:59:00 Test Item Value Reference Range Interpretation Comments eGFR (test code = eGFR 100 ) [place] 853501-11-03 14:59:00 Test Item Value Reference Range Interpretation Comments B/C Ratio (test code = B/C NOT APPLICABLE 6-22 Ratio) [place] 853501-11-03 14:59:00 Test Item Value Reference Range Interpretation Comments Sodium Lvl (test code = Sodium Lvl) 139 135-146 [place] 139731-11-03 14:59:00 Test Item Value Reference Range Interpretation Comments Monocytes (test code = Monocytes) 6.8 [place] 853501-11-03 14:59:00 Test Item Value Reference Range Interpretation Comments Potassium Lvl (test code = Potassium 4.2 3.5-5.3 Lvl) [place] 853501-11-03 14:59:00 Test Item Value Reference Range Interpretation Comments Chloride Lvl (test code = Chloride Lvl) 108 98-110 [place] 853501-11-03 14:59:00 Test Item Value Reference Range Interpretation Comments CO2 (test code = CO2) 23 20-32 [place] 853501-11-03 14:59:00 Test Item Value Reference Range Interpretation Comments Calcium Lvl (test code = Calcium Lvl) 9.6 8.6-10.4 [place] [address]-11-03 14:59:00 Test Item Value Reference Range Interpretation Comments WBC X 10x3 (test code = WBC X 10x3) 9.1 3.8-10.8 [place] [address]-11-03 14:59:00 Test Item Value Reference Range Interpretation Comments RBC X 10x6 (test code = RBC X 10x6) 3.70 3.80-5.10 [place] 139731-11-03 14:59:00 Test Item Value Reference Range Interpretation Comments Hgb (test code = Hgb) 10.2 11.7-15.5 [place] 139731-11-03 14:59:00 Test Item Value Reference Range Interpretation Comments Hct (test code = Hct) 33.2 35.0-45.0 [place] 139731-11-03 14:59:00 Test Item Value Reference Range Interpretation Comments MCV (test code = MCV) 89.7 80.0-100.0 [place] [address]-11-03 14:59:00 Test Item Value Reference Range Interpretation Comments MCH (test code = MCH) 27.6 pg 27.0-33.0 [place] 139731-11-03 14:59:00 Test Item Value Reference Range Interpretation Comments Eosinophils (test code = Eosinophils) 1.8 [place] [address]-11-03 14:59:00 Test Item Value Reference Range Interpretation Comments MCHC (test code = MCHC) 30.7 32.0-36.0 [facility] CentralWivtliqHUGBLBNBSP9989-65-63 14:59:00 Test Item Value Reference Range Interpretation Comments RDW (test code = RDW) 15.0 11.0-15.0 [facility] CentralHhbnxukZGBZVKFXUV5394-11-57 14:59:00 Test Item Value Reference Range Interpretation Comments Platelet (test code = Platelet) 727 140-400 [facility] CentralUpaemojDYNYWBEKVR8530-80-14 14:59:00 Test Item Value Reference Range Interpretation Comments MPV (test code = MPV) 11.0 7.5-12.5 [facility] CentralEsxneltWSHITGPAWX2705-14-55 14:59:00 Test Item Value Reference Range Interpretation Comments Neutrophils # (test code = Neutrophils 6743 5517-2841 #) [facility] CentralLmazibmTEYHTDZHMP1274-87-00 14:59:00 Test Item Value Reference Range Interpretation Comments Lymphocytes # (test code = Lymphocytes 6865 263-3259 #) [facility] CentralIbprapjZVGODRLSPA0130-71-75 14:59:00 Test Item Value Reference Range Interpretation Comments Monocytes # (test code = Monocytes #) 619 200-950 [facility] CentralNoojtsvLSCZSBNNZB0229-48-74 14:59:00 Test Item Value Reference Range Interpretation Comments Eosinophils # (test code = Eosinophils 164 15-500 #) [facility] CentralNvuzdvrWOFJXNPQOY1688-30-21 14:59:00 Test Item Value Reference Range Interpretation Comments Basophils # (test code 82 See_Comment [Aut omated message] The = Basophils #) system which generated this result tra nsmitted reference range : <=200. The reference r arelis was not used to int erpret this result as normal/abnormal . [facility] CentralCdlxgjrRIJHOZVGKE4114-17-89 14:59:00 Test Item Value Reference Range Interpretation Comments Segs (test code = Segs) 74.1 [facility] CentralMomhrmtKSCBWEYCCR5406-05-68 14:59:00 Test Item Value Reference Range Interpretation Comments Basophils (test code = Basophils) 0.9 [place] 139731-11-03 14:59:00 Test Item Value Reference Range Interpretation Comments Lymphocytes (test code = Lymphocytes) 16.4 [facility] CentralYeqyosjFSINLUBTBJ2666-97-25 14:59:00 Test Item Value Reference Range Interpretation Comments Monocytes (test code = Monocytes) 6.8 [place] 139731-11-03 14:59:00 Test Item Value Reference Range Interpretation Comments Eosinophils (test code = Eosinophils) 1.8 [facility] CentralWpdabklZFYMDQASVA8721-81-83 14:59:00 Test Item Value Reference Range Interpretation Comments Basophils (test code = Basophils) 0.9 [facility] AYDSRYR1722-27-40 14:59:00 Test Item Value Reference Range Interpretation Comments Result 2 (Urine Culture) See Result Comment (test code = Result 2 (Urine Culture)) [facility] [id number] 14:59:00 Test Item Value Reference Range Interpretation Comments Result 2 (Urine Culture) See Result Comment (test code = Result 2 (Urine Culture)) [facility]2021-11-03 14:59:00 Test Item Value Reference Range Interpretation Comments Glucose Lvl (test code = Glucose Lvl) 101 65-99 [facility]2021-11-03 14:59:00 Test Item Value Reference Range Interpretation Comments BUN (test code = BUN) 9 7-25 [place] 853501-11-03 14:59:00 Test Item Value Reference Range Interpretation Comments Creatinine Lvl (test code = Creatinine 0.72 0.50-0.99 Lvl) [facility]2021-11-03 14:59:00 Test Item Value Reference Range Interpretation Comments eGFR NON-AFR. ARMENIAN (test code = 86 eGFR NON-AFR. ARMENIAN) [facility]2021-11-03 14:59:00 Test Item Value Reference Range Interpretation Comments eGFR (test code = eGFR 100 ) [place] 853501-11-03 14:59:00 Test Item Value Reference Range Interpretation Comments B/C Ratio (test code = B/C NOT APPLICABLE 6-22 Ratio) [place] 853501-11-03 14:59:00 Test Item Value Reference Range Interpretation Comments Sodium Lvl (test code = Sodium Lvl) 139 135-146 [facility]2021-11-03 14:59:00 Test Item Value Reference Range Interpretation Comments Potassium Lvl (test code = Potassium 4.2 3.5-5.3 Lvl) [place] 853501-11-03 14:59:00 Test Item Value Reference Range Interpretation Comments Chloride Lvl (test code = Chloride Lvl) 108 98-110 [facility]2021-11-03 14:59:00 Test Item Value Reference Range Interpretation Comments CO2 (test code = CO2) 23 20-32 [facility]2021-11-03 14:59:00 Test Item Value Reference Range Interpretation Comments Calcium Lvl (test code = Calcium Lvl) 9.6 8.6-10.4 [place] 139731-11-03 14:59:00 Test Item Value Reference Range Interpretation Comments WBC X 10x3 (test code = WBC X 10x3) 9.1 3.8-10.8 [place] 139731-11-03 14:59:00 Test Item Value Reference Range Interpretation Comments RBC X 10x6 (test code = RBC X 10x6) 3.70 3.80-5.10 [place] 139731-11-03 14:59:00 Test Item Value Reference Range Interpretation Comments Hgb (test code = Hgb) 10.2 11.7-15.5 [facility] CentralKavsditIOMJAWDZGI8326-78-68 14:59:00 Test Item Value Reference Range Interpretation Comments Hct (test code = Hct) 33.2 35.0-45.0 [place] 139731-11-03 14:59:00 Test Item Value Reference Range Interpretation Comments MCV (test code = MCV) 89.7 80.0-100.0 [facility] CentralGjifqceCRHGJQMKXR4185-99-23 14:59:00 Test Item Value Reference Range Interpretation Comments MCH (test code = MCH) 27.6 pg 27.0-33.0 [place] 139731-11-03 14:59:00 Test Item Value Reference Range Interpretation Comments MCHC (test code = MCHC) 30.7 32.0-36.0 [place] [address]-11-03 14:59:00 Test Item Value Reference Range Interpretation Comments RDW (test code = RDW) 15.0 11.0-15.0 [place] [address]-11-03 14:59:00 Test Item Value Reference Range Interpretation Comments Platelet (test code = Platelet) 727 140-400 [facility] CentralCqoovckDEXEMFTASV6480-97-13 14:59:00 Test Item Value Reference Range Interpretation Comments MPV (test code = MPV) 11.0 7.5-12.5 [facility] CentralWomofieYUDIHYACPL0881-88-07 14:59:00 Test Item Value Reference Range Interpretation Comments Neutrophils # (test code = Neutrophils 6743 4521-0738 #) [facility]kuxoqqUODVGOUEYO0460-06-41 14:59:00 Test Item Value Reference Range Interpretation Comments Lymphocytes # (test code = Lymphocytes 1250 477-9217 #) [facility]borDwpaqmsEOFDTIVVHR5502-53-82 14:59:00 Test Item Value Reference Range Interpretation Comments Monocytes # (test code = Monocytes #) 619 200-950 [facility]borOlvqctkYOGMTAAOZP0330-40-27 14:59:00 Test Item Value Reference Range Interpretation Comments Eosinophils # (test code = Eosinophils 164 15-500 #) [facility]borNlzdftnCEAXZFWOUO4331-05-70 14:59:00 Test Item Value Reference Range Interpretation Comments Basophils # (test code 82 See_Comment [Aut omated message] The = Basophils #) system which generated this result tra nsmitted reference range : <=200. The reference r arelis was not used to int erpret this result as normal/abnormal . [facility] CentralGzqagtpHMMDTEHEAF2641-73-56 14:59:00 Test Item Value Reference Range Interpretation Comments Segs (test code = Segs) 74.1 [facility] CentralVbrehplQUFXURYPDW4155-69-56 14:59:00 Test Item Value Reference Range Interpretation Comments Lymphocytes (test code = Lymphocytes) 16.4 [facility] CentralArhqrqkSOPJIIUCQP8036-14-07 14:59:00 Test Item Value Reference Range Interpretation Comments Monocytes (test code = Monocytes) 6.8 [facility] CentralHogiwmrYBNRFLTUMF8878-41-54 14:59:00 Test Item Value Reference Range Interpretation Comments Eosinophils (test code = Eosinophils) 1.8 [facility] CentralBzqwzkoETORIMZABV2113-61-62 14:59:00 Test Item Value Reference Range Interpretation Comments Basophils (test code = Basophils) 0.9 [facility] ZHXBWSC8773-13-06 14:59:00 Test Item Value Reference Range Interpretation Comments Result 2 (Urine Culture) See Result Comment (test code = Result 2 (Urine Culture)) [facility] [id number] 09:00:00 Test Item Value Reference Range Interpretation Comments Glucose Lvl (test code = Glucose Lvl) 173 70-99 [facility] [id number] 09:00:00 Test Item Value Reference Range Interpretation Comments BUN (test code = BUN) 8 7-22 [place] 853501-10-19 09:00:00 Test Item Value Reference Range Interpretation Comments Creatinine Lvl (test code = Creatinine 0.55 0.50-1.40 Lvl) [place] 853501-10-19 09:00:00 Test Item Value Reference Range Interpretation Comments Sodium Lvl (test code = Sodium Lvl) 139 135-145 [place] 853501-10-19 09:00:00 Test Item Value Reference Range Interpretation Comments Potassium Lvl (test code = Potassium 4.1 3.5-5.1 Lvl) [place] 853501-10-19 09:00:00 Test Item Value Reference Range Interpretation Comments Chloride Lvl (test code = Chloride Lvl) 109 95-109 [place] 853501-10-19 09:00:00 Test Item Value Reference Range Interpretation Comments CO2 (test code = CO2) 24 24-32 [place] 853501-10-19 09:00:00 Test Item Value Reference Range Interpretation Comments AGAP (test code = AGAP) 10.1 10.0-20.0 [place] 853501-10-19 09:00:00 Test Item Value Reference Range Interpretation Comments Calcium Lvl (test code = Calcium Lvl) 8.6 8.5-10.5 [facility]2021-10-19 09:00:00 Test Item Value Reference Range Interpretation Comments eGFR (test code = eGFR) 97 [place] 139731-10-19 09:00:00 Test Item Value Reference Range Interpretation Comments Segs (test code = Segs) 90.2 45.0-75.0 [place] 139731-10-19 09:00:00 Test Item Value Reference Range Interpretation Comments Lymphocytes (test code = Lymphocytes) 4.7 20.0-40.0 [place] 139731-10-19 09:00:00 Test Item Value Reference Range Interpretation Comments Monocytes (test code = Monocytes) 5.0 2.0-12.0 [place] 139731-10-19 09:00:00 Test Item Value Reference Range Interpretation Comments Basophils (test code = 0.1 See_Comment [Aut omated message] The Basophils) system which ge nerated this result tra nsmitted reference range : <=1.0. The reference r arelis was not used to int erpret this result as normal/abnormal . [facility] CentralWtcnfepMXAMRFILUT7329-46-12 09:00:00 Test Item Value Reference Range Interpretation Comments Neutrophils # (test code = Neutrophils 8.4 1.5-8.1 #) [facility] CentralAxmxmsuNQKXCXIVWW5315-23-49 09:00:00 Test Item Value Reference Range Interpretation Comments Lymphocytes # (test code = Lymphocytes 0.4 1.0-5.5 #) [facility] CentralYvzbomnWVFAUEYCKQ5922-34-69 09:00:00 Test Item Value Reference Range Interpretation Comments Monocytes # (test code 0.5 See_Comment [Aut omated message] The = Monocytes #) system which generated this result tra nsmitted reference range : <=0.8. The reference r arelis was not used to int erpret this result as normal/abnormal . [facility] CentralRqrlmrzKBGCMNGALW9998-13-37 09:00:00 Test Item Value Reference Range Interpretation Comments WBC (test code = WBC) 9.3 3.7-10.4 [facility] CentralWwlptipNTNQLABCBQ3431-39-23 09:00:00 Test Item Value Reference Range Interpretation Comments RBC (test code = RBC) 3.41 4.20-5.40 [facility] CentralLffecoaEAWIMGZSLS6061-93-22 09:00:00 Test Item Value Reference Range Interpretation Comments Hgb (test code = Hgb) 9.7 12.0-16.0 [facility] CentralRhxbfdhDQCSOLZDAP9483-90-46 09:00:00 Test Item Value Reference Range Interpretation Comments Hct (test code = Hct) 29.5 36.0-48.0 [place] 139731-10-19 09:00:00 Test Item Value Reference Range Interpretation Comments MCV (test code = MCV) 86.4 80.0-98.0 [facility] CentralMuwkwksNKWRAARIIA1405-15-83 09:00:00 Test Item Value Reference Range Interpretation Comments MCH (test code = MCH) 28.3 pg 27.0-31.0 [facility] CentralIdwaqurIVZYERJVQJ6015-47-19 09:00:00 Test Item Value Reference Range Interpretation Comments MCHC (test code = MCHC) 32.8 32.0-36.0 [place] 139731-10-19 09:00:00 Test Item Value Reference Range Interpretation Comments RDW (test code = RDW) 14.9 11.5-14.5 [place] 139731-10-19 09:00:00 Test Item Value Reference Range Interpretation Comments Platelet (test code = Platelet) 353 133-450 [place] 139731-10-19 09:00:00 Test Item Value Reference Range Interpretation Comments MPV (test code = MPV) 8.3 7.4-10.4 [place] 853501-10-19 09:00:00 Test Item Value Reference Range Interpretation Comments Glucose Lvl (test code = Glucose Lvl) 173 70-99 [place] 853501-10-19 09:00:00 Test Item Value Reference Range Interpretation Comments BUN (test code = BUN) 8 7-22 [place] 853501-10-19 09:00:00 Test Item Value Reference Range Interpretation Comments Creatinine Lvl (test code = Creatinine 0.55 0.50-1.40 Lvl) [place] 853501-10-19 09:00:00 Test Item Value Reference Range Interpretation Comments Sodium Lvl (test code = Sodium Lvl) 139 135-145 [place] 853501-10-19 09:00:00 Test Item Value Reference Range Interpretation Comments Potassium Lvl (test code = Potassium 4.1 3.5-5.1 Lvl) [facility]2021-10-19 09:00:00 Test Item Value Reference Range Interpretation Comments Chloride Lvl (test code = Chloride Lvl) 109 95-109 [place] 853501-10-19 09:00:00 Test Item Value Reference Range Interpretation Comments CO2 (test code = CO2) 24 24-32 [place] 853501-10-19 09:00:00 Test Item Value Reference Range Interpretation Comments AGAP (test code = AGAP) 10.1 10.0-20.0 [place] 853501-10-19 09:00:00 Test Item Value Reference Range Interpretation Comments Calcium Lvl (test code = Calcium Lvl) 8.6 8.5-10.5 [facility]2021-10-19 09:00:00 Test Item Value Reference Range Interpretation Comments eGFR (test code = eGFR) 97 [place] 139731-10-19 09:00:00 Test Item Value Reference Range Interpretation Comments Segs (test code = Segs) 90.2 45.0-75.0 [facility] CentralVpqgzalCNARWHXUSM4201-00-41 09:00:00 Test Item Value Reference Range Interpretation Comments Lymphocytes (test code = Lymphocytes) 4.7 20.0-40.0 [facility] CentralFdgxjysZZRPWXDODB5216-26-61 09:00:00 Test Item Value Reference Range Interpretation Comments Monocytes (test code = Monocytes) 5.0 2.0-12.0 [facility] CentralHdxcbuyXLFTJOEGHZ6059-32-74 09:00:00 Test Item Value Reference Range Interpretation Comments Basophils (test code = 0.1 See_Comment [Aut omated message] The Basophils) system which ge nerated this result tra nsmitted reference range : <=1.0. The reference r arelis was not used to int erpret this result as normal/abnormal . [facility] CentralBtsrueoJELDZAYOTM3881-20-43 09:00:00 Test Item Value Reference Range Interpretation Comments Neutrophils # (test code = Neutrophils 8.4 1.5-8.1 #) [facility] CentralLgauuqhNJIRPRHBSX4813-99-71 09:00:00 Test Item Value Reference Range Interpretation Comments Lymphocytes # (test code = Lymphocytes 0.4 1.0-5.5 #) [facility] CentralSdvnxiyVPLWZYMHHA1727-83-94 09:00:00 Test Item Value Reference Range Interpretation Comments Monocytes # (test code 0.5 See_Comment [Aut omated message] The = Monocytes #) system which generated this result tra nsmitted reference range : <=0.8. The reference r arelis was not used to int erpret this result as normal/abnormal . [facility] CentralNwohevyVPEXMAXKIP9691-92-50 09:00:00 Test Item Value Reference Range Interpretation Comments WBC (test code = WBC) 9.3 3.7-10.4 [facility] CentralLsnahvhZMNZATBIVL7385-25-94 09:00:00 Test Item Value Reference Range Interpretation Comments RBC (test code = RBC) 3.41 4.20-5.40 [facility] CentralPcxmsheHNZNITRYAL7881-12-63 09:00:00 Test Item Value Reference Range Interpretation Comments Hgb (test code = Hgb) 9.7 12.0-16.0 [facility] CentralFfkcawaWUWXHYTCMZ3407-58-87 09:00:00 Test Item Value Reference Range Interpretation Comments Hct (test code = Hct) 29.5 36.0-48.0 [place] 139731-10-19 09:00:00 Test Item Value Reference Range Interpretation Comments MCV (test code = MCV) 86.4 80.0-98.0 [place] 139731-10-19 09:00:00 Test Item Value Reference Range Interpretation Comments MCH (test code = MCH) 28.3 pg 27.0-31.0 [place] 139731-10-19 09:00:00 Test Item Value Reference Range Interpretation Comments MCHC (test code = MCHC) 32.8 32.0-36.0 [place] 139731-10-19 09:00:00 Test Item Value Reference Range Interpretation Comments RDW (test code = RDW) 14.9 11.5-14.5 [place] 139731-10-19 09:00:00 Test Item Value Reference Range Interpretation Comments Platelet (test code = Platelet) 353 133-450 [place] 139731-10-19 09:00:00 Test Item Value Reference Range Interpretation Comments MPV (test code = MPV) 8.3 7.4-10.4 [facility]2021-10-19 09:00:00 Test Item Value Reference Range Interpretation Comments Glucose Lvl (test code = Glucose Lvl) 173 70-99 [facility]2021-10-19 09:00:00 Test Item Value Reference Range Interpretation Comments BUN (test code = BUN) 8 7-22 [place] 853501-10-19 09:00:00 Test Item Value Reference Range Interpretation Comments Creatinine Lvl (test code = Creatinine 0.55 0.50-1.40 Lvl) [place] 853501-10-19 09:00:00 Test Item Value Reference Range Interpretation Comments Sodium Lvl (test code = Sodium Lvl) 139 135-145 [facility]2021-10-19 09:00:00 Test Item Value Reference Range Interpretation Comments Potassium Lvl (test code = Potassium 4.1 3.5-5.1 Lvl) [facility]2021-10-19 09:00:00 Test Item Value Reference Range Interpretation Comments Chloride Lvl (test code = Chloride Lvl) 109 95-109 [place] 853501-10-19 09:00:00 Test Item Value Reference Range Interpretation Comments CO2 (test code = CO2) 24 24-32 [place] 853501-10-19 09:00:00 Test Item Value Reference Range Interpretation Comments AGAP (test code = AGAP) 10.1 10.0-20.0 [place] 853501-10-19 09:00:00 Test Item Value Reference Range Interpretation Comments Calcium Lvl (test code = Calcium Lvl) 8.6 8.5-10.5 [place] 853501-10-19 09:00:00 Test Item Value Reference Range Interpretation Comments eGFR (test code = eGFR) 97 [facility] CentralFqbzfnvERMKXYSKFG4344-52-29 09:00:00 Test Item Value Reference Range Interpretation Comments Segs (test code = Segs) 90.2 45.0-75.0 [place] 139731-10-19 09:00:00 Test Item Value Reference Range Interpretation Comments Lymphocytes (test code = Lymphocytes) 4.7 20.0-40.0 [place] 139731-10-19 09:00:00 Test Item Value Reference Range Interpretation Comments Monocytes (test code = Monocytes) 5.0 2.0-12.0 [place] 139731-10-19 09:00:00 Test Item Value Reference Range Interpretation Comments Basophils (test code = 0.1 See_Comment [Aut omated message] The Basophils) system which ge nerated this result tra nsmitted reference range : <=1.0. The reference r arelis was not used to int erpret this result as normal/abnormal . [place] 139731-10-19 09:00:00 Test Item Value Reference Range Interpretation Comments Neutrophils # (test code = Neutrophils 8.4 1.5-8.1 #) [place] 139731-10-19 09:00:00 Test Item Value Reference Range Interpretation Comments Lymphocytes # (test code = Lymphocytes 0.4 1.0-5.5 #) [place] 139731-10-19 09:00:00 Test Item Value Reference Range Interpretation Comments Monocytes # (test code 0.5 See_Comment [Aut omated message] The = Monocytes #) system which generated this result tra nsmitted reference range : <=0.8. The reference r arelis was not used to int erpret this result as normal/abnormal . [facility] CentralYwmhucrZRTTPMFSGR9104-00-92 09:00:00 Test Item Value Reference Range Interpretation Comments WBC (test code = WBC) 9.3 3.7-10.4 [facility] CentralKxovduaUZELZOXVVS8205-02-85 09:00:00 Test Item Value Reference Range Interpretation Comments RBC (test code = RBC) 3.41 4.20-5.40 [facility] CentralKwwxtruBFDNLGYTZE7291-24-97 09:00:00 Test Item Value Reference Range Interpretation Comments Hgb (test code = Hgb) 9.7 12.0-16.0 [facility] CentralJhjcoahZLCCMRHFLI9830-91-74 09:00:00 Test Item Value Reference Range Interpretation Comments Hct (test code = Hct) 29.5 36.0-48.0 [facility] CentralSaleyrmFBHBSZHVCC1032-41-33 09:00:00 Test Item Value Reference Range Interpretation Comments MCV (test code = MCV) 86.4 80.0-98.0 [facility] CentralTrahhgpFNCZIJALPW2093-56-96 09:00:00 Test Item Value Reference Range Interpretation Comments MCH (test code = MCH) 28.3 pg 27.0-31.0 [facility] CentralUuiwsgyJEAGZRRCTG1991-80-06 09:00:00 Test Item Value Reference Range Interpretation Comments MCHC (test code = MCHC) 32.8 32.0-36.0 [facility] CentralVyhosyuLXOPFEYEBD7149-96-40 09:00:00 Test Item Value Reference Range Interpretation Comments RDW (test code = RDW) 14.9 11.5-14.5 [facility] CentralLdvlgiuHTVWYAYLTV9104-91-76 09:00:00 Test Item Value Reference Range Interpretation Comments Platelet (test code = Platelet) 353 133-450 [facility] CentralXkzgrvzIPPJBSRFID0024-96-44 09:00:00 Test Item Value Reference Range Interpretation Comments MPV (test code = MPV) 8.3 7.4-10.4 [facility]2021-10-19 09:00:00 Test Item Value Reference Range Interpretation Comments Glucose Lvl (test code = Glucose Lvl) 173 70-99 [facility]2021-10-19 09:00:00 Test Item Value Reference Range Interpretation Comments BUN (test code = BUN) 8 7-22 [facility]2021-10-19 09:00:00 Test Item Value Reference Range Interpretation Comments Creatinine Lvl (test code = Creatinine 0.55 0.50-1.40 Lvl) [place] 853501-10-19 09:00:00 Test Item Value Reference Range Interpretation Comments Sodium Lvl (test code = Sodium Lvl) 139 135-145 [place] 853501-10-19 09:00:00 Test Item Value Reference Range Interpretation Comments Potassium Lvl (test code = Potassium 4.1 3.5-5.1 Lvl) [place] 853501-10-19 09:00:00 Test Item Value Reference Range Interpretation Comments Chloride Lvl (test code = Chloride Lvl) 109 95-109 [place] 853501-10-19 09:00:00 Test Item Value Reference Range Interpretation Comments CO2 (test code = CO2) 24 24-32 [place] 853501-10-19 09:00:00 Test Item Value Reference Range Interpretation Comments AGAP (test code = AGAP) 10.1 10.0-20.0 [place] 853501-10-19 09:00:00 Test Item Value Reference Range Interpretation Comments Calcium Lvl (test code = Calcium Lvl) 8.6 8.5-10.5 [place] 853501-10-19 09:00:00 Test Item Value Reference Range Interpretation Comments eGFR (test code = eGFR) 97 [place] 139731-10-19 09:00:00 Test Item Value Reference Range Interpretation Comments Segs (test code = Segs) 90.2 45.0-75.0 [place] 139731-10-19 09:00:00 Test Item Value Reference Range Interpretation Comments Lymphocytes (test code = Lymphocytes) 4.7 20.0-40.0 [place] 139731-10-19 09:00:00 Test Item Value Reference Range Interpretation Comments Monocytes (test code = Monocytes) 5.0 2.0-12.0 [place] [address]-10-19 09:00:00 Test Item Value Reference Range Interpretation Comments Basophils (test code = 0.1 See_Comment [Aut omated message] The Basophils) system which ge nerated this result tra nsmitted reference range : <=1.0. The reference r arelis was not used to int erpret this result as normal/abnormal . [facility] CentralYegoxinQYGJAGHXAS7937-58-90 09:00:00 Test Item Value Reference Range Interpretation Comments Neutrophils # (test code = Neutrophils 8.4 1.5-8.1 #) [facility] CentralLpjlcoeWORQCUSWHB0393-20-26 09:00:00 Test Item Value Reference Range Interpretation Comments Lymphocytes # (test code = Lymphocytes 0.4 1.0-5.5 #) [facility] CentralBdpvmvcJEETNEVPSG8813-30-58 09:00:00 Test Item Value Reference Range Interpretation Comments Monocytes # (test code 0.5 See_Comment [Aut omated message] The = Monocytes #) system which generated this result tra nsmitted reference range : <=0.8. The reference r arelis was not used to int erpret this result as normal/abnormal . [facility] CentralDfcynfrEOCNMRKWNG3884-57-43 09:00:00 Test Item Value Reference Range Interpretation Comments WBC (test code = WBC) 9.3 3.7-10.4 [facility] CentralBenttgkBZUOVCDLBC2639-29-63 09:00:00 Test Item Value Reference Range Interpretation Comments RBC (test code = RBC) 3.41 4.20-5.40 [facility] CentralVddobtjVQUOCTQMSS2019-01-51 09:00:00 Test Item Value Reference Range Interpretation Comments Hgb (test code = Hgb) 9.7 12.0-16.0 [facility] CentralLsbbeetDYNXMGSVFC0124-14-00 09:00:00 Test Item Value Reference Range Interpretation Comments Hct (test code = Hct) 29.5 36.0-48.0 [facility] CentralWvzoahiJMORFWSMTS0976-40-00 09:00:00 Test Item Value Reference Range Interpretation Comments MCV (test code = MCV) 86.4 80.0-98.0 [facility] CentralLwvnkloTGKNOAQFLE2487-82-85 09:00:00 Test Item Value Reference Range Interpretation Comments MCH (test code = MCH) 28.3 pg 27.0-31.0 [facility] CentralWbepswfCTIXFZCVQD4728-94-25 09:00:00 Test Item Value Reference Range Interpretation Comments MCHC (test code = MCHC) 32.8 32.0-36.0 [facility] CentralVownaacNNKNJQDUYI1889-67-39 09:00:00 Test Item Value Reference Range Interpretation Comments RDW (test code = RDW) 14.9 11.5-14.5 [place] 139731-10-19 09:00:00 Test Item Value Reference Range Interpretation Comments Platelet (test code = Platelet) 353 133-450 [place] 139731-10-19 09:00:00 Test Item Value Reference Range Interpretation Comments MPV (test code = MPV) 8.3 7.4-10.4 [facility]2021-10-19 09:00:00 Test Item Value Reference Range Interpretation Comments Glucose Lvl (test code = Glucose Lvl) 173 70-99 [facility]2021-10-19 09:00:00 Test Item Value Reference Range Interpretation Comments BUN (test code = BUN) 8 7-22 [place] 853501-10-19 09:00:00 Test Item Value Reference Range Interpretation Comments Creatinine Lvl (test code = Creatinine 0.55 0.50-1.40 Lvl) [facility]2021-10-19 09:00:00 Test Item Value Reference Range Interpretation Comments Sodium Lvl (test code = Sodium Lvl) 139 135-145 [facility]2021-10-19 09:00:00 Test Item Value Reference Range Interpretation Comments Potassium Lvl (test code = Potassium 4.1 3.5-5.1 Lvl) [facility]2021-10-19 09:00:00 Test Item Value Reference Range Interpretation Comments Chloride Lvl (test code = Chloride Lvl) 109 95-109 [place] 853501-10-19 09:00:00 Test Item Value Reference Range Interpretation Comments CO2 (test code = CO2) 24 24-32 [facility]2021-10-19 09:00:00 Test Item Value Reference Range Interpretation Comments AGAP (test code = AGAP) 10.1 10.0-20.0 [place] 853501-10-19 09:00:00 Test Item Value Reference Range Interpretation Comments Calcium Lvl (test code = Calcium Lvl) 8.6 8.5-10.5 [facility]2021-10-19 09:00:00 Test Item Value Reference Range Interpretation Comments eGFR (test code = eGFR) 97 [place] 139731-10-19 09:00:00 Test Item Value Reference Range Interpretation Comments Segs (test code = Segs) 90.2 45.0-75.0 [facility] CentralVuzuglcDXVOLMLNGE4986-31-43 09:00:00 Test Item Value Reference Range Interpretation Comments Lymphocytes (test code = Lymphocytes) 4.7 20.0-40.0 [facility] CentralYbbuivaQGMWNBCWWD5936-91-56 09:00:00 Test Item Value Reference Range Interpretation Comments Monocytes (test code = Monocytes) 5.0 2.0-12.0 [facility] CentralUcyvqhbRCHFZQOVWN4065-44-00 09:00:00 Test Item Value Reference Range Interpretation Comments Basophils (test code = 0.1 See_Comment [Aut omated message] The Basophils) system which ge nerated this result tra nsmitted reference range : <=1.0. The reference r arelis was not used to int erpret this result as normal/abnormal . [facility] CentralYkhatzyUVWPPKCGGU5638-53-10 09:00:00 Test Item Value Reference Range Interpretation Comments Neutrophils # (test code = Neutrophils 8.4 1.5-8.1 #) [facility] CentralDhhsohzUHXXVQKWJB1203-40-94 09:00:00 Test Item Value Reference Range Interpretation Comments Lymphocytes # (test code = Lymphocytes 0.4 1.0-5.5 #) [facility] CentralOjnkbeyEHHZYNQSAS5531-16-13 09:00:00 Test Item Value Reference Range Interpretation Comments Monocytes # (test code 0.5 See_Comment [Aut omated message] The = Monocytes #) system which generated this result tra nsmitted reference range : <=0.8. The reference r arelis was not used to int erpret this result as normal/abnormal . [facility] CentralRddupyjAINOEIBEER6629-90-63 09:00:00 Test Item Value Reference Range Interpretation Comments WBC (test code = WBC) 9.3 3.7-10.4 [facility] CentralKzhdbuwXUFWSQINVL8746-70-89 09:00:00 Test Item Value Reference Range Interpretation Comments RBC (test code = RBC) 3.41 4.20-5.40 [facility] CentralWpfyzwpVGCIIRMYUI0673-86-60 09:00:00 Test Item Value Reference Range Interpretation Comments Hgb (test code = Hgb) 9.7 12.0-16.0 [facility] CentralAlfyavwLHUFOXKBRE1978-05-72 09:00:00 Test Item Value Reference Range Interpretation Comments Hct (test code = Hct) 29.5 36.0-48.0 [facility] CentralVafjdcbEQDYLQQSKQ0785-99-26 09:00:00 Test Item Value Reference Range Interpretation Comments MCV (test code = MCV) 86.4 80.0-98.0 [facility] CentralMqnhkmgDRUHBBUJZP5822-37-68 09:00:00 Test Item Value Reference Range Interpretation Comments MCH (test code = MCH) 28.3 pg 27.0-31.0 [facility] CentralXovykkhTRQSOOBVQW5290-94-57 09:00:00 Test Item Value Reference Range Interpretation Comments MCHC (test code = MCHC) 32.8 32.0-36.0 [facility] CentralWbdajbjVYSEEQVRCK8268-51-57 09:00:00 Test Item Value Reference Range Interpretation Comments RDW (test code = RDW) 14.9 11.5-14.5 [facility] CentralZcfoozeZBXELGKDNS7078-21-03 09:00:00 Test Item Value Reference Range Interpretation Comments Platelet (test code = Platelet) 353 133-450 [facility] CentralWpuslinDCIZUMXKHV6569-65-46 09:00:00 Test Item Value Reference Range Interpretation Comments MPV (test code = MPV) 8.3 7.4-10.4 [facility]2021-10-19 09:00:00 Test Item Value Reference Range Interpretation Comments Glucose Lvl (test code = Glucose Lvl) 173 70-99 [facility]2021-10-19 09:00:00 Test Item Value Reference Range Interpretation Comments BUN (test code = BUN) 8 7-22 [facility]2021-10-19 09:00:00 Test Item Value Reference Range Interpretation Comments Creatinine Lvl (test code = Creatinine 0.55 0.50-1.40 Lvl) [facility]2021-10-19 09:00:00 Test Item Value Reference Range Interpretation Comments Sodium Lvl (test code = Sodium Lvl) 139 135-145 [facility]2021-10-19 09:00:00 Test Item Value Reference Range Interpretation Comments Potassium Lvl (test code = Potassium 4.1 3.5-5.1 Lvl) [facility]2021-10-19 09:00:00 Test Item Value Reference Range Interpretation Comments Chloride Lvl (test code = Chloride Lvl) 109 95-109 [place] 853501-10-19 09:00:00 Test Item Value Reference Range Interpretation Comments CO2 (test code = CO2) 24 24-32 [place] 853501-10-19 09:00:00 Test Item Value Reference Range Interpretation Comments AGAP (test code = AGAP) 10.1 10.0-20.0 [place] 853501-10-19 09:00:00 Test Item Value Reference Range Interpretation Comments Calcium Lvl (test code = Calcium Lvl) 8.6 8.5-10.5 [place] 853501-10-19 09:00:00 Test Item Value Reference Range Interpretation Comments eGFR (test code = eGFR) 97 [place] 139731-10-19 09:00:00 Test Item Value Reference Range Interpretation Comments Segs (test code = Segs) 90.2 45.0-75.0 [place] 139731-10-19 09:00:00 Test Item Value Reference Range Interpretation Comments Lymphocytes (test code = Lymphocytes) 4.7 20.0-40.0 [place] 139731-10-19 09:00:00 Test Item Value Reference Range Interpretation Comments Monocytes (test code = Monocytes) 5.0 2.0-12.0 [place] 139731-10-19 09:00:00 Test Item Value Reference Range Interpretation Comments Basophils (test code = 0.1 See_Comment [Aut omated message] The Basophils) system which ge nerated this result tra nsmitted reference range : <=1.0. The reference r arelis was not used to int erpret this result as normal/abnormal . [place] 139731-10-19 09:00:00 Test Item Value Reference Range Interpretation Comments Neutrophils # (test code = Neutrophils 8.4 1.5-8.1 #) [place] 139731-10-19 09:00:00 Test Item Value Reference Range Interpretation Comments Lymphocytes # (test code = Lymphocytes 0.4 1.0-5.5 #) [place] 139731-10-19 09:00:00 Test Item Value Reference Range Interpretation Comments Monocytes # (test code 0.5 See_Comment [Aut omated message] The = Monocytes #) system which generated this result tra nsmitted reference range : <=0.8. The reference r arelis was not used to int erpret this result as normal/abnormal . [place] 139731-10-19 09:00:00 Test Item Value Reference Range Interpretation Comments WBC (test code = WBC) 9.3 3.7-10.4 [facility] CentralIyypxcoNSMYAWABCR5830-15-78 09:00:00 Test Item Value Reference Range Interpretation Comments RBC (test code = RBC) 3.41 4.20-5.40 [facility] CentralAftzcvpUWXUJYZMIM9437-14-50 09:00:00 Test Item Value Reference Range Interpretation Comments Hgb (test code = Hgb) 9.7 12.0-16.0 [facility] CentralLrpsinbTSHLCJWALH4884-81-41 09:00:00 Test Item Value Reference Range Interpretation Comments Hct (test code = Hct) 29.5 36.0-48.0 [facility] CentralZlpjhthFPYFHYUISW8157-32-62 09:00:00 Test Item Value Reference Range Interpretation Comments MCV (test code = MCV) 86.4 80.0-98.0 [facility] CentralQkwhnbmXVAPXTXSDY2409-47-14 09:00:00 Test Item Value Reference Range Interpretation Comments MCH (test code = MCH) 28.3 pg 27.0-31.0 [facility] CentralWdhxiaxIVCOPKLITM3658-31-90 09:00:00 Test Item Value Reference Range Interpretation Comments MCHC (test code = MCHC) 32.8 32.0-36.0 [facility] CentralOgflpgjSGMHUYLLFE8968-94-49 09:00:00 Test Item Value Reference Range Interpretation Comments RDW (test code = RDW) 14.9 11.5-14.5 [facility] CentralUcjeferMGPFEHLZSE1021-96-07 09:00:00 Test Item Value Reference Range Interpretation Comments Platelet (test code = Platelet) 353 133-450 [facility] CentralZesrbahRKVQXOAWHJ5343-80-10 09:00:00 Test Item Value Reference Range Interpretation Comments MPV (test code = MPV) 8.3 7.4-10.4 [facility]2021-10-19 09:00:00 Test Item Value Reference Range Interpretation Comments Glucose Lvl (test code = Glucose Lvl) 173 70-99 [facility]2021-10-19 09:00:00 Test Item Value Reference Range Interpretation Comments BUN (test code = BUN) 8 7-22 [facility]2021-10-19 09:00:00 Test Item Value Reference Range Interpretation Comments Creatinine Lvl (test code = Creatinine 0.55 0.50-1.40 Lvl) [place] 853501-10-19 09:00:00 Test Item Value Reference Range Interpretation Comments Sodium Lvl (test code = Sodium Lvl) 139 135-145 [place] 853501-10-19 09:00:00 Test Item Value Reference Range Interpretation Comments Potassium Lvl (test code = Potassium 4.1 3.5-5.1 Lvl) [place] 853501-10-19 09:00:00 Test Item Value Reference Range Interpretation Comments Chloride Lvl (test code = Chloride Lvl) 109 95-109 [place] 853501-10-19 09:00:00 Test Item Value Reference Range Interpretation Comments CO2 (test code = CO2) 24 24-32 [place] 853501-10-19 09:00:00 Test Item Value Reference Range Interpretation Comments AGAP (test code = AGAP) 10.1 10.0-20.0 [place] 853501-10-19 09:00:00 Test Item Value Reference Range Interpretation Comments Calcium Lvl (test code = Calcium Lvl) 8.6 8.5-10.5 [place] 853501-10-19 09:00:00 Test Item Value Reference Range Interpretation Comments eGFR (test code = eGFR) 97 [facility] CentralRnmvxwyNTIQQYSTCQ0371-14-54 09:00:00 Test Item Value Reference Range Interpretation Comments Segs (test code = Segs) 90.2 45.0-75.0 [place] 139731-10-19 09:00:00 Test Item Value Reference Range Interpretation Comments Lymphocytes (test code = Lymphocytes) 4.7 20.0-40.0 [place] 139731-10-19 09:00:00 Test Item Value Reference Range Interpretation Comments Monocytes (test code = Monocytes) 5.0 2.0-12.0 [place] [address]-10-19 09:00:00 Test Item Value Reference Range Interpretation Comments Basophils (test code = 0.1 See_Comment [Aut omated message] The Basophils) system which ge nerated this result tra nsmitted reference range : <=1.0. The reference r arelis was not used to int erpret this result as normal/abnormal . [place] 139731-10-19 09:00:00 Test Item Value Reference Range Interpretation Comments Neutrophils # (test code = Neutrophils 8.4 1.5-8.1 #) [facility] CentralGzqlgumLKOERACELC8886-48-82 09:00:00 Test Item Value Reference Range Interpretation Comments Lymphocytes # (test code = Lymphocytes 0.4 1.0-5.5 #) [facility] CentralGkadkpoXUCAAUNGLT1015-35-84 09:00:00 Test Item Value Reference Range Interpretation Comments Monocytes # (test code 0.5 See_Comment [Aut omated message] The = Monocytes #) system which generated this result tra nsmitted reference range : <=0.8. The reference r arelis was not used to int erpret this result as normal/abnormal . [facility] CentralQttpkygPFEXJDRRQQ9883-76-31 09:00:00 Test Item Value Reference Range Interpretation Comments WBC (test code = WBC) 9.3 3.7-10.4 [place] 139731-10-19 09:00:00 Test Item Value Reference Range Interpretation Comments RBC (test code = RBC) 3.41 4.20-5.40 [facility] CentralUfeodqfUYMDEUZTZJ2944-64-60 09:00:00 Test Item Value Reference Range Interpretation Comments Hgb (test code = Hgb) 9.7 12.0-16.0 [facility] CentralOtdpbcpEMQUEYCHRL1142-19-00 09:00:00 Test Item Value Reference Range Interpretation Comments Hct (test code = Hct) 29.5 36.0-48.0 [place] 139731-10-19 09:00:00 Test Item Value Reference Range Interpretation Comments MCV (test code = MCV) 86.4 80.0-98.0 [facility] CentralCklgpkaIYOAFLYFFD8380-21-56 09:00:00 Test Item Value Reference Range Interpretation Comments MCH (test code = MCH) 28.3 pg 27.0-31.0 [facility] CentralSbqosvwXPJHFNGQID0176-69-49 09:00:00 Test Item Value Reference Range Interpretation Comments MCHC (test code = MCHC) 32.8 32.0-36.0 [facility] CentralRswxjzpDJTGMAAALA0533-57-56 09:00:00 Test Item Value Reference Range Interpretation Comments RDW (test code = RDW) 14.9 11.5-14.5 [facility] CentralQzeazciDQTEIZJUBO9577-94-34 09:00:00 Test Item Value Reference Range Interpretation Comments Platelet (test code = Platelet) 353 133-450 [place] 139731-10-19 09:00:00 Test Item Value Reference Range Interpretation Comments MPV (test code = MPV) 8.3 7.4-10.4 [place] 853501-10-19 09:00:00 Test Item Value Reference Range Interpretation Comments Glucose Lvl (test code = Glucose Lvl) 173 70-99 [place] 853501-10-19 09:00:00 Test Item Value Reference Range Interpretation Comments BUN (test code = BUN) 8 7-22 [place] 853501-10-19 09:00:00 Test Item Value Reference Range Interpretation Comments Creatinine Lvl (test code = Creatinine 0.55 0.50-1.40 Lvl) [facility]2021-10-19 09:00:00 Test Item Value Reference Range Interpretation Comments Sodium Lvl (test code = Sodium Lvl) 139 135-145 [place] 853501-10-19 09:00:00 Test Item Value Reference Range Interpretation Comments Potassium Lvl (test code = Potassium 4.1 3.5-5.1 Lvl) [place] 853501-10-19 09:00:00 Test Item Value Reference Range Interpretation Comments Chloride Lvl (test code = Chloride Lvl) 109 95-109 [place] 853501-10-19 09:00:00 Test Item Value Reference Range Interpretation Comments CO2 (test code = CO2) 24 24-32 [place] 853501-10-19 09:00:00 Test Item Value Reference Range Interpretation Comments AGAP (test code = AGAP) 10.1 10.0-20.0 [place] 853501-10-19 09:00:00 Test Item Value Reference Range Interpretation Comments Calcium Lvl (test code = Calcium Lvl) 8.6 8.5-10.5 [facility]2021-10-19 09:00:00 Test Item Value Reference Range Interpretation Comments eGFR (test code = eGFR) 97 [place] 139731-10-19 09:00:00 Test Item Value Reference Range Interpretation Comments Segs (test code = Segs) 90.2 45.0-75.0 [place] 139731-10-19 09:00:00 Test Item Value Reference Range Interpretation Comments Lymphocytes (test code = Lymphocytes) 4.7 20.0-40.0 [place] 139731-10-19 09:00:00 Test Item Value Reference Range Interpretation Comments Monocytes (test code = Monocytes) 5.0 2.0-12.0 [facility] CentralLzxylwzIKJFAJGXBP2887-61-81 09:00:00 Test Item Value Reference Range Interpretation Comments Basophils (test code = 0.1 See_Comment [Aut omated message] The Basophils) system which ge nerated this result tra nsmitted reference range : <=1.0. The reference r arelis was not used to int erpret this result as normal/abnormal . [facility] CentralGqollwfIZDFBGPWXF8964-34-74 09:00:00 Test Item Value Reference Range Interpretation Comments Neutrophils # (test code = Neutrophils 8.4 1.5-8.1 #) [place] 139731-10-19 09:00:00 Test Item Value Reference Range Interpretation Comments Lymphocytes # (test code = Lymphocytes 0.4 1.0-5.5 #) [facility] CentralDpfnmjgUSRBMSJJGF1701-29-71 09:00:00 Test Item Value Reference Range Interpretation Comments Monocytes # (test code 0.5 See_Comment [Aut omated message] The = Monocytes #) system which generated this result tra nsmitted reference range : <=0.8. The reference r arelis was not used to int erpret this result as normal/abnormal . [facility] CentralUeaanseSMBBNBJRLR4002-54-66 09:00:00 Test Item Value Reference Range Interpretation Comments WBC (test code = WBC) 9.3 3.7-10.4 [place] 139731-10-19 09:00:00 Test Item Value Reference Range Interpretation Comments RBC (test code = RBC) 3.41 4.20-5.40 [place] 139731-10-19 09:00:00 Test Item Value Reference Range Interpretation Comments Hgb (test code = Hgb) 9.7 12.0-16.0 [place] 139731-10-19 09:00:00 Test Item Value Reference Range Interpretation Comments Hct (test code = Hct) 29.5 36.0-48.0 [place] 139731-10-19 09:00:00 Test Item Value Reference Range Interpretation Comments MCV (test code = MCV) 86.4 80.0-98.0 [place] 139731-10-19 09:00:00 Test Item Value Reference Range Interpretation Comments MCH (test code = MCH) 28.3 pg 27.0-31.0 [place] 139731-10-19 09:00:00 Test Item Value Reference Range Interpretation Comments MCHC (test code = MCHC) 32.8 32.0-36.0 [place] 139731-10-19 09:00:00 Test Item Value Reference Range Interpretation Comments RDW (test code = RDW) 14.9 11.5-14.5 [place] 139731-10-19 09:00:00 Test Item Value Reference Range Interpretation Comments Platelet (test code = Platelet) 353 133-450 [facility] CentralErdltuqVSEBPYIPTM9741-52-24 09:00:00 Test Item Value Reference Range Interpretation Comments MPV (test code = MPV) 8.3 7.4-10.4 [facility]2021-10-19 09:00:00 Test Item Value Reference Range Interpretation Comments Glucose Lvl (test code = Glucose Lvl) 173 70-99 [facility]2021-10-19 09:00:00 Test Item Value Reference Range Interpretation Comments BUN (test code = BUN) 8 7-22 [facility]2021-10-19 09:00:00 Test Item Value Reference Range Interpretation Comments Creatinine Lvl (test code = Creatinine 0.55 0.50-1.40 Lvl) [facility]2021-10-19 09:00:00 Test Item Value Reference Range Interpretation Comments Sodium Lvl (test code = Sodium Lvl) 139 135-145 [facility]2021-10-19 09:00:00 Test Item Value Reference Range Interpretation Comments Potassium Lvl (test code = Potassium 4.1 3.5-5.1 Lvl) [facility]2021-10-19 09:00:00 Test Item Value Reference Range Interpretation Comments Chloride Lvl (test code = Chloride Lvl) 109 95-109 [place] 853501-10-19 09:00:00 Test Item Value Reference Range Interpretation Comments CO2 (test code = CO2) 24 24-32 [facility]2021-10-19 09:00:00 Test Item Value Reference Range Interpretation Comments AGAP (test code = AGAP) 10.1 10.0-20.0 [facility]2021-10-19 09:00:00 Test Item Value Reference Range Interpretation Comments Calcium Lvl (test code = Calcium Lvl) 8.6 8.5-10.5 [place] 853501-10-19 09:00:00 Test Item Value Reference Range Interpretation Comments eGFR (test code = eGFR) 97 [facility] CentralYpwcbqtCRIHAJYIAM3404-67-02 09:00:00 Test Item Value Reference Range Interpretation Comments Segs (test code = Segs) 90.2 45.0-75.0 [place] 139731-10-19 09:00:00 Test Item Value Reference Range Interpretation Comments Lymphocytes (test code = Lymphocytes) 4.7 20.0-40.0 [facility] CentralBynsahvDZGOKHJWRE1695-67-07 09:00:00 Test Item Value Reference Range Interpretation Comments Monocytes (test code = Monocytes) 5.0 2.0-12.0 [facility] CentralQkjjiirHHJDTGRPWK5377-11-80 09:00:00 Test Item Value Reference Range Interpretation Comments Basophils (test code = 0.1 See_Comment [Aut omated message] The Basophils) system which ge nerated this result tra nsmitted reference range : <=1.0. The reference r arelis was not used to int erpret this result as normal/abnormal . [facility] CentralVykojkrRTVZVZXTZG4126-82-50 09:00:00 Test Item Value Reference Range Interpretation Comments Neutrophils # (test code = Neutrophils 8.4 1.5-8.1 #) [facility] CentralMfrtsacNGZTFETQNR0453-77-83 09:00:00 Test Item Value Reference Range Interpretation Comments Lymphocytes # (test code = Lymphocytes 0.4 1.0-5.5 #) [place] 139731-10-19 09:00:00 Test Item Value Reference Range Interpretation Comments Monocytes # (test code 0.5 See_Comment [Aut omated message] The = Monocytes #) system which generated this result tra nsmitted reference range : <=0.8. The reference r arelis was not used to int erpret this result as normal/abnormal . [place] 139731-10-19 09:00:00 Test Item Value Reference Range Interpretation Comments WBC (test code = WBC) 9.3 3.7-10.4 [place] 139731-10-19 09:00:00 Test Item Value Reference Range Interpretation Comments RBC (test code = RBC) 3.41 4.20-5.40 [place] 139731-10-19 09:00:00 Test Item Value Reference Range Interpretation Comments Hgb (test code = Hgb) 9.7 12.0-16.0 [place] [place] 139[place]31-10-19 09:00:00 Test Item Value Reference Range Interpretation Comments Hct (test code = Hct) 29.5 36.0-48.0 [place] 139731-10-19 09:00:00 Test Item Value Reference Range Interpretation Comments MCV (test code = MCV) 86.4 80.0-98.0 [place] 139731-10-19 09:00:00 Test Item Value Reference Range Interpretation Comments MCH (test code = MCH) 28.3 pg 27.0-31.0 [place] 139731-10-19 09:00:00 Test Item Value Reference Range Interpretation Comments MCHC (test code = MCHC) 32.8 32.0-36.0 [place] 139731-10-19 09:00:00 Test Item Value Reference Range Interpretation Comments RDW (test code = RDW) 14.9 11.5-14.5 [facility]xmzjlPXHNQLUCNZ9722-05-22 09:00:00 Test Item Value Reference Range Interpretation Comments Platelet (test code = Platelet) 353 133-450 [facility] CentralBxatlxhYCDZMUMNXT2605-24-29 09:00:00 Test Item Value Reference Range Interpretation Comments MPV (test code = MPV) 8.3 7.4-10.4 [facility]2021-10-19 09:00:00 Test Item Value Reference Range Interpretation Comments Glucose Lvl (test code = Glucose Lvl) 173 70-99 [facility]2021-10-19 09:00:00 Test Item Value Reference Range Interpretation Comments BUN (test code = BUN) 8 7-22 [facility]2021-10-19 09:00:00 Test Item Value Reference Range Interpretation Comments Creatinine Lvl (test code = Creatinine 0.55 0.50-1.40 Lvl) [facility]2021-10-19 09:00:00 Test Item Value Reference Range Interpretation Comments Sodium Lvl (test code = Sodium Lvl) 139 135-145 [facility]2021-10-19 09:00:00 Test Item Value Reference Range Interpretation Comments Potassium Lvl (test code = Potassium 4.1 3.5-5.1 Lvl) [facility]2021-10-19 09:00:00 Test Item Value Reference Range Interpretation Comments Chloride Lvl (test code = Chloride Lvl) 109 95-109 [facility]2021-10-19 09:00:00 Test Item Value Reference Range Interpretation Comments CO2 (test code = CO2) 24 - [facility]2021-10-19 09:00:00 Test Item Value Reference Range Interpretation Comments AGAP (test code = AGAP) 10.1 10.0-20.0 [facility]2021-10-19 09:00:00 Test Item Value Reference Range Interpretation Comments Glucose Lvl (test code = Glucose Lvl) 173 70-99 [facility]2021-10-19 09:00:00 Test Item Value Reference Range Interpretation Comments BUN (test code = BUN) 8 7-22 [facility]2021-10-19 09:00:00 Test Item Value Reference Range Interpretation Comments Creatinine Lvl (test code = Creatinine 0.55 0.50-1.40 Lvl) [facility]2021-10-19 09:00:00 Test Item Value Reference Range Interpretation Comments Sodium Lvl (test code = Sodium Lvl) 139 135-145 [facility]2021-10-19 09:00:00 Test Item Value Reference Range Interpretation Comments Potassium Lvl (test code = Potassium 4.1 3.5-5.1 Lvl) [facility]2021-10-19 09:00:00 Test Item Value Reference Range Interpretation Comments Calcium Lvl (test code = Calcium Lvl) 8.6 8.5-10.5 [facility]2021-10-19 09:00:00 Test Item Value Reference Range Interpretation Comments Chloride Lvl (test code = Chloride Lvl) 109 95-109 [facility]2021-10-19 09:00:00 Test Item Value Reference Range Interpretation Comments CO2 (test code = CO2) 24 24-32 [facility]2021-10-19 09:00:00 Test Item Value Reference Range Interpretation Comments AGAP (test code = AGAP) 10.1 10.0-20.0 [facility]2021-10-19 09:00:00 Test Item Value Reference Range Interpretation Comments Calcium Lvl (test code = Calcium Lvl) 8.6 8.5-10.5 [facility]2021-10-19 09:00:00 Test Item Value Reference Range Interpretation Comments eGFR (test code = eGFR) 97 [facility]ZqxcovgREYERBXYFY7455-41-11 09:00:00 Test Item Value Reference Range Interpretation Comments Segs (test code = Segs) 90.2 45.0-75.0 [facility] CentralSpgnejjWWMSJQDPNP6633-63-12 09:00:00 Test Item Value Reference Range Interpretation Comments Lymphocytes (test code = Lymphocytes) 4.7 20.0-40.0 [facility] CentralKtraixcKGXOXZSTZQ5322-81-03 09:00:00 Test Item Value Reference Range Interpretation Comments Monocytes (test code = Monocytes) 5.0 2.0-12.0 [facility] CentralUyxsdriGOMIGUGCXC5037-87-54 09:00:00 Test Item Value Reference Range Interpretation Comments Basophils (test code = 0.1 See_Comment [Aut omated message] The Basophils) system which ge nerated this result tra nsmitted reference range : <=1.0. The reference r arelis was not used to int erpret this result as normal/abnormal . [place] 139[place]31-10-19 09:00:00 Test Item Value Reference Range Interpretation Comments Neutrophils # (test code = Neutrophils 8.4 1.5-8.1 #) [facility]2021-10-19 09:00:00 Test Item Value Reference Range Interpretation Comments eGFR (test code = eGFR) 97 [place] 139731-10-19 09:00:00 Test Item Value Reference Range Interpretation Comments Lymphocytes # (test code = Lymphocytes 0.4 1.0-5.5 #) [facility] CentralLmczywpRNXRPIEKFP7467-55-80 09:00:00 Test Item Value Reference Range Interpretation Comments Monocytes # (test code 0.5 See_Comment [Aut omated message] The = Monocytes #) system which generated this result tra nsmitted reference range : <=0.8. The reference r arelis was not used to int erpret this result as normal/abnormal . [facility] CentralCxktqutZGWVVBPHCW4370-98-21 09:00:00 Test Item Value Reference Range Interpretation Comments WBC (test code = WBC) 9.3 3.7-10.4 [facility] CentralHndvoqvKHNJOWEKOT1456-40-67 09:00:00 Test Item Value Reference Range Interpretation Comments RBC (test code = RBC) 3.41 4.20-5.40 [facility] CentralUgabbyyZDYHHQBEBH1895-55-03 09:00:00 Test Item Value Reference Range Interpretation Comments Hgb (test code = Hgb) 9.7 12.0-16.0 [facility] CentralZuqrqgsWQKWTEOOVQ4944-14-27 09:00:00 Test Item Value Reference Range Interpretation Comments Hct (test code = Hct) 29.5 36.0-48.0 [facility] CentralNdxwvkaVHRBGRNXRT5586-84-19 09:00:00 Test Item Value Reference Range Interpretation Comments MCV (test code = MCV) 86.4 80.0-98.0 [facility] CentralVuebvorIFKRCMRIFL2346-06-41 09:00:00 Test Item Value Reference Range Interpretation Comments MCH (test code = MCH) 28.3 pg 27.0-31.0 [facility] CentralYeycboaDOXANXVOGP0110-88-27 09:00:00 Test Item Value Reference Range Interpretation Comments MCHC (test code = MCHC) 32.8 32.0-36.0 [facility] CentralTcslkquVWCQIYOUGZ3028-39-60 09:00:00 Test Item Value Reference Range Interpretation Comments RDW (test code = RDW) 14.9 11.5-14.5 [facility] CentralKuecpleNBVIQOCTYF2327-20-47 09:00:00 Test Item Value Reference Range Interpretation Comments Segs (test code = Segs) 90.2 45.0-75.0 [facility] CentralJojfgcoJXZVNPTKRT4248-46-74 09:00:00 Test Item Value Reference Range Interpretation Comments Platelet (test code = Platelet) 353 133-450 [facility] CentralDgtauyiGBBJOBJWAK4089-44-13 09:00:00 Test Item Value Reference Range Interpretation Comments MPV (test code = MPV) 8.3 7.4-10.4 [facility] CentralNhegwbfRNGILNANPO8889-93-64 09:00:00 Test Item Value Reference Range Interpretation Comments Lymphocytes (test code = Lymphocytes) 4.7 20.0-40.0 [facility] CentralFfutvukPGGJSLANGO8147-81-02 09:00:00 Test Item Value Reference Range Interpretation Comments Monocytes (test code = Monocytes) 5.0 2.0-12.0 [facility] CentralSbyjfrzWZPMXXVSXK1703-15-82 09:00:00 Test Item Value Reference Range Interpretation Comments Basophils (test code = 0.1 See_Comment [Aut omated message] The Basophils) system which ge nerated this result tra nsmitted reference range : <=1.0. The reference r arelis was not used to int erpret this result as normal/abnormal . [facility] CentralRtzcksiKFANUDQKZJ3051-17-90 09:00:00 Test Item Value Reference Range Interpretation Comments Neutrophils # (test code = Neutrophils 8.4 1.5-8.1 #) [facility] CentralCryucppEQWLWNTIUO5828-27-70 09:00:00 Test Item Value Reference Range Interpretation Comments Lymphocytes # (test code = Lymphocytes 0.4 1.0-5.5 #) [facility] CentralVfuihyrHAEWBYLYOB2347-30-48 09:00:00 Test Item Value Reference Range Interpretation Comments Monocytes # (test code 0.5 See_Comment [Aut omated message] The = Monocytes #) system which generated this result tra nsmitted reference range : <=0.8. The reference r arelis was not used to int erpret this result as normal/abnormal . [facility] CentralLpixvjwONMEQOFCPF6839-22-60 09:00:00 Test Item Value Reference Range Interpretation Comments WBC (test code = WBC) 9.3 3.7-10.4 [facility] CentralFkyhoqfHHPCKLXBSM9763-71-54 09:00:00 Test Item Value Reference Range Interpretation Comments RBC (test code = RBC) 3.41 4.20-5.40 [facility] CentralBwcdplqXODHUNUDMS2398-09-99 09:00:00 Test Item Value Reference Range Interpretation Comments Hgb (test code = Hgb) 9.7 12.0-16.0 [facility] CentralTspesmmSJOOYZJHAW0997-26-75 09:00:00 Test Item Value Reference Range Interpretation Comments Hct (test code = Hct) 29.5 36.0-48.0 [facility] CentralLsdpwqeIMLPQZZGKD2948-35-59 09:00:00 Test Item Value Reference Range Interpretation Comments MCV (test code = MCV) 86.4 80.0-98.0 [facility] CentralVyquuiiOEBCIPFDDO0901-47-95 09:00:00 Test Item Value Reference Range Interpretation Comments MCH (test code = MCH) 28.3 pg 27.0-31.0 [facility] CentralZuqxjrxGGSROOYORK6130-38-35 09:00:00 Test Item Value Reference Range Interpretation Comments MCHC (test code = MCHC) 32.8 32.0-36.0 [place] 139731-10-19 09:00:00 Test Item Value Reference Range Interpretation Comments RDW (test code = RDW) 14.9 11.5-14.5 [place] 139731-10-19 09:00:00 Test Item Value Reference Range Interpretation Comments Platelet (test code = Platelet) 353 133-450 [facility] CentralAspwnpmAUEHPQCLTK8497-00-24 09:00:00 Test Item Value Reference Range Interpretation Comments MPV (test code = MPV) 8.3 7.4-10.4 [facility]2021-10-19 09:00:00 Test Item Value Reference Range Interpretation Comments Glucose Lvl (test code = Glucose Lvl) 173 70-99 [facility]2021-10-19 09:00:00 Test Item Value Reference Range Interpretation Comments BUN (test code = BUN) 8 7-22 [facility]2021-10-19 09:00:00 Test Item Value Reference Range Interpretation Comments Creatinine Lvl (test code = Creatinine 0.55 0.50-1.40 Lvl) [facility]2021-10-19 09:00:00 Test Item Value Reference Range Interpretation Comments Sodium Lvl (test code = Sodium Lvl) 139 135-145 [facility]2021-10-19 09:00:00 Test Item Value Reference Range Interpretation Comments Potassium Lvl (test code = Potassium 4.1 3.5-5.1 Lvl) [facility]2021-10-19 09:00:00 Test Item Value Reference Range Interpretation Comments Chloride Lvl (test code = Chloride Lvl) 109 95-109 [facility]2021-10-19 09:00:00 Test Item Value Reference Range Interpretation Comments CO2 (test code = CO2) 24 24-32 [facility]2021-10-19 09:00:00 Test Item Value Reference Range Interpretation Comments AGAP (test code = AGAP) 10.1 10.0-20.0 [place]35[place]-10-19 09:00:00 Test Item Value Reference Range Interpretation Comments Calcium Lvl (test code = Calcium Lvl) 8.6 8.5-10.5 [place]3501-10-19 09:00:00 Test Item Value Reference Range Interpretation Comments eGFR (test code = eGFR) 97 [facility] CentralVnytrbtEAOIETVPEN2615-34-16 09:00:00 Test Item Value Reference Range Interpretation Comments Segs (test code = Segs) 90.2 45.0-75.0 [place] 139[place]31-10-19 09:00:00 Test Item Value Reference Range Interpretation Comments Lymphocytes (test code = Lymphocytes) 4.7 20.0-40.0 [place] 139[place]31-10-19 09:00:00 Test Item Value Reference Range Interpretation Comments Monocytes (test code = Monocytes) 5.0 2.0-12.0 [place] 139731-10-19 09:00:00 Test Item Value Reference Range Interpretation Comments Basophils (test code = 0.1 See_Comment [Aut omated message] The Basophils) system which ge nerated this result tra nsmitted reference range : <=1.0. The reference r arelis was not used to int erpret this result as normal/abnormal . [facility] CentralWulhrdoYBDYZKNGDD1819-75-01 09:00:00 Test Item Value Reference Range Interpretation Comments Neutrophils # (test code = Neutrophils 8.4 1.5-8.1 #) [facility] CentralXupsawvAEXLFTSHDS4619-59-14 09:00:00 Test Item Value Reference Range Interpretation Comments Lymphocytes # (test code = Lymphocytes 0.4 1.0-5.5 #) [place] 139731-10-19 09:00:00 Test Item Value Reference Range Interpretation Comments Monocytes # (test code 0.5 See_Comment [Aut omated message] The = Monocytes #) system which generated this result tra nsmitted reference range : <=0.8. The reference r arelis was not used to int erpret this result as normal/abnormal . [place] 139731-10-19 09:00:00 Test Item Value Reference Range Interpretation Comments WBC (test code = WBC) 9.3 3.7-10.4 [place] 139731-10-19 09:00:00 Test Item Value Reference Range Interpretation Comments RBC (test code = RBC) 3.41 4.20-5.40 [place] 139731-10-19 09:00:00 Test Item Value Reference Range Interpretation Comments Hgb (test code = Hgb) 9.7 12.0-16.0 [place] 139731-10-19 09:00:00 Test Item Value Reference Range Interpretation Comments Hct (test code = Hct) 29.5 36.0-48.0 [place] 139731-10-19 09:00:00 Test Item Value Reference Range Interpretation Comments MCV (test code = MCV) 86.4 80.0-98.0 [place] 139731-10-19 09:00:00 Test Item Value Reference Range Interpretation Comments MCH (test code = MCH) 28.3 pg 27.0-31.0 [place] 139731-10-19 09:00:00 Test Item Value Reference Range Interpretation Comments MCHC (test code = MCHC) 32.8 32.0-36.0 [place] 139731-10-19 09:00:00 Test Item Value Reference Range Interpretation Comments RDW (test code = RDW) 14.9 11.5-14.5 [place] 139731-10-19 09:00:00 Test Item Value Reference Range Interpretation Comments Platelet (test code = Platelet) 353 133-450 [facility] CentralXrsyfbjYKMDNOMGKW6281-85-85 09:00:00 Test Item Value Reference Range Interpretation Comments MPV (test code = MPV) 8.3 7.4-10.4 [facility]2021-10-19 09:00:00 Test Item Value Reference Range Interpretation Comments Glucose Lvl (test code = Glucose Lvl) 173 70-99 [facility]2021-10-19 09:00:00 Test Item Value Reference Range Interpretation Comments BUN (test code = BUN) 8 7-22 [facility]2021-10-19 09:00:00 Test Item Value Reference Range Interpretation Comments Creatinine Lvl (test code = Creatinine 0.55 0.50-1.40 Lvl) [facility]2021-10-19 09:00:00 Test Item Value Reference Range Interpretation Comments Sodium Lvl (test code = Sodium Lvl) 139 135-145 [facility]2021-10-19 09:00:00 Test Item Value Reference Range Interpretation Comments Potassium Lvl (test code = Potassium 4.1 3.5-5.1 Lvl) [place] 8535[place]-10-19 09:00:00 Test Item Value Reference Range Interpretation Comments Chloride Lvl (test code = Chloride Lvl) 109 95-109 [place] 8535[place]-10-19 09:00:00 Test Item Value Reference Range Interpretation Comments CO2 (test code = CO2) 24 24-32 [place]35[place]-10-19 09:00:00 Test Item Value Reference Range Interpretation Comments AGAP (test code = AGAP) 10.1 10.0-20.0 [place] 853501-10-19 09:00:00 Test Item Value Reference Range Interpretation Comments Calcium Lvl (test code = Calcium Lvl) 8.6 8.5-10.5 [place] 853501-10-19 09:00:00 Test Item Value Reference Range Interpretation Comments eGFR (test code = eGFR) 97 [place] 139731-10-19 09:00:00 Test Item Value Reference Range Interpretation Comments Segs (test code = Segs) 90.2 45.0-75.0 [place] 139731-10-19 09:00:00 Test Item Value Reference Range Interpretation Comments Lymphocytes (test code = Lymphocytes) 4.7 20.0-40.0 [place] 139731-10-19 09:00:00 Test Item Value Reference Range Interpretation Comments Monocytes (test code = Monocytes) 5.0 2.0-12.0 [place] 139731-10-19 09:00:00 Test Item Value Reference Range Interpretation Comments Basophils (test code = 0.1 See_Comment [Aut omated message] The Basophils) system which ge nerated this result tra nsmitted reference range : <=1.0. The reference r arelis was not used to int erpret this result as normal/abnormal . [place] 139731-10-19 09:00:00 Test Item Value Reference Range Interpretation Comments Neutrophils # (test code = Neutrophils 8.4 1.5-8.1 #) [place] 139731-10-19 09:00:00 Test Item Value Reference Range Interpretation Comments Lymphocytes # (test code = Lymphocytes 0.4 1.0-5.5 #) [facility]IMAT9861[facility]-74 09:00:00 Test Item Value Reference Range Interpretation Comments Monocytes # (test code 0.5 See_Comment [Aut omated message] The = Monocytes #) system which generated this result tra nsmitted reference range : <=0.8. The reference r arelis was not used to int erpret this result as normal/abnormal . [facility]OmzuxisQEDWUXSXAU0188-93-38 09:00:00 Test Item Value Reference Range Interpretation Comments WBC (test code = WBC) 9.3 3.7-10.4 [facility]ZfdjiztOYFHBGALNG4427-11-33 09:00:00 Test Item Value Reference Range Interpretation Comments RBC (test code = RBC) 3.41 4.20-5.40 [facility]QkrcbpxVYMXVHMURS8032-22-21 09:00:00 Test Item Value Reference Range Interpretation Comments Hgb (test code = Hgb) 9.7 12.0-16.0 [facility]VktmrvuUFQBFEKVOS5359-51-68 09:00:00 Test Item Value Reference Range Interpretation Comments Hct (test code = Hct) 29.5 36.0-48.0 [facility]OgxkpamYFWWHAEDUY9638-46-16 09:00:00 Test Item Value Reference Range Interpretation Comments MCV (test code = MCV) 86.4 80.0-98.0 [facility]ngliCDJLQKLQNP4901-95-40 09:00:00 Test Item Value Reference Range Interpretation Comments MCH (test code = MCH) 28.3 pg 27.0-31.0 [facility] CampusQszxfbuEWQDKGHNFA8834-53-87 09:00:00 Test Item Value Reference Range Interpretation Comments MCHC (test code = MCHC) 32.8 32.0-36.0 [facility]ZtudijlUJKLJLQWMW6388-03-41 09:00:00 Test Item Value Reference Range Interpretation Comments RDW (test code = RDW) 14.9 11.5-14.5 [facility] CampusDnrlpboMGJBYXVALN4805-15-72 09:00:00 Test Item Value Reference Range Interpretation Comments Platelet (test code = Platelet) 353 133-450 [facility] CampusGhsrdnqKPJCPUAQUK3295-97-70 09:00:00 Test Item Value Reference Range Interpretation Comments MPV (test code = MPV) 8.3 7.4-10.4 [place] 853501-10-19 09:00:00 Test Item Value Reference Range Interpretation Comments Glucose Lvl (test code = Glucose Lvl) 173 70-99 [place] 853501-10-19 09:00:00 Test Item Value Reference Range Interpretation Comments BUN (test code = BUN) 8 7-22 [place] 853501-10-19 09:00:00 Test Item Value Reference Range Interpretation Comments Creatinine Lvl (test code = Creatinine 0.55 0.50-1.40 Lvl) [facility]2021-10-19 09:00:00 Test Item Value Reference Range Interpretation Comments Sodium Lvl (test code = Sodium Lvl) 139 135-145 [place] 853501-10-19 09:00:00 Test Item Value Reference Range Interpretation Comments Potassium Lvl (test code = Potassium 4.1 3.5-5.1 Lvl) [place] 853501-10-19 09:00:00 Test Item Value Reference Range Interpretation Comments Chloride Lvl (test code = Chloride Lvl) 109 95-109 [place] 853501-10-19 09:00:00 Test Item Value Reference Range Interpretation Comments CO2 (test code = CO2) 24 24-32 [place] 853501-10-19 09:00:00 Test Item Value Reference Range Interpretation Comments AGAP (test code = AGAP) 10.1 10.0-20.0 [place] 853501-10-19 09:00:00 Test Item Value Reference Range Interpretation Comments Calcium Lvl (test code = Calcium Lvl) 8.6 8.5-10.5 [place] 853501-10-19 09:00:00 Test Item Value Reference Range Interpretation Comments eGFR (test code = eGFR) 97 [place] 139731-10-19 09:00:00 Test Item Value Reference Range Interpretation Comments Segs (test code = Segs) 90.2 45.0-75.0 [place] 139731-10-19 09:00:00 Test Item Value Reference Range Interpretation Comments Lymphocytes (test code = Lymphocytes) 4.7 20.0-40.0 [place] 139731-10-19 09:00:00 Test Item Value Reference Range Interpretation Comments Monocytes (test code = Monocytes) 5.0 2.0-12.0 [facility] CentralSlznuipWPBXYLOAOQ1932-80-50 09:00:00 Test Item Value Reference Range Interpretation Comments Basophils (test code = 0.1 See_Comment [Aut omated message] The Basophils) system which ge nerated this result tra nsmitted reference range : <=1.0. The reference r arelis was not used to int erpret this result as normal/abnormal . [facility] CentralHyfnzcfUHHRRYXZHZ6843-99-04 09:00:00 Test Item Value Reference Range Interpretation Comments Neutrophils # (test code = Neutrophils 8.4 1.5-8.1 #) [facility] CentralPhivjlcWCHREVDYAY3526-87-72 09:00:00 Test Item Value Reference Range Interpretation Comments Lymphocytes # (test code = Lymphocytes 0.4 1.0-5.5 #) [facility] CentralNvmneesHPIYNFAZXL5180-59-49 09:00:00 Test Item Value Reference Range Interpretation Comments Monocytes # (test code 0.5 See_Comment [Aut omated message] The = Monocytes #) system which generated this result tra nsmitted reference range : <=0.8. The reference r arelis was not used to int erpret this result as normal/abnormal . [facility] CentralGfxcvvzSYCOMKDDUE9806-81-36 09:00:00 Test Item Value Reference Range Interpretation Comments WBC (test code = WBC) 9.3 3.7-10.4 [facility] CentralYlcqvwrTBUUZQPCKW6972-39-19 09:00:00 Test Item Value Reference Range Interpretation Comments RBC (test code = RBC) 3.41 4.20-5.40 [facility] CentralSyxxduvZAHYBYOIJC8382-31-22 09:00:00 Test Item Value Reference Range Interpretation Comments Hgb (test code = Hgb) 9.7 12.0-16.0 [facility] CentralTfdsxalZZFDMRSZVB9101-31-47 09:00:00 Test Item Value Reference Range Interpretation Comments Hct (test code = Hct) 29.5 36.0-48.0 [facility] CentralUnmzvxlFNAJPMIYNS5855-93-81 09:00:00 Test Item Value Reference Range Interpretation Comments MCV (test code = MCV) 86.4 80.0-98.0 [facility] CentralKjbmsqrYFFCLTRZAK0144-05-31 09:00:00 Test Item Value Reference Range Interpretation Comments MCH (test code = MCH) 28.3 pg 27.0-31.0 [facility] CentralMlllwaaSZJEOQCOYH9889-08-26 09:00:00 Test Item Value Reference Range Interpretation Comments MCHC (test code = MCHC) 32.8 32.0-36.0 [place] 139731-10-19 09:00:00 Test Item Value Reference Range Interpretation Comments RDW (test code = RDW) 14.9 11.5-14.5 [place] 139731-10-19 09:00:00 Test Item Value Reference Range Interpretation Comments Platelet (test code = Platelet) 353 133-450 [facility]AvnwxfyTWJSTGJCCW7621-23-40 09:00:00 Test Item Value Reference Range Interpretation Comments MPV (test code = MPV) 8.3 7.4-10.4 [facility]2021-10-19 09:00:00 Test Item Value Reference Range Interpretation Comments Glucose Lvl (test code = Glucose Lvl) 173 70-99 [place] 853501-10-19 09:00:00 Test Item Value Reference Range Interpretation Comments BUN (test code = BUN) 8 7-22 [place] 853501-10-19 09:00:00 Test Item Value Reference Range Interpretation Comments Creatinine Lvl (test code = Creatinine 0.55 0.50-1.40 Lvl) [facility]2021-10-19 09:00:00 Test Item Value Reference Range Interpretation Comments Sodium Lvl (test code = Sodium Lvl) 139 135-145 [place] 853501-10-19 09:00:00 Test Item Value Reference Range Interpretation Comments Potassium Lvl (test code = Potassium 4.1 3.5-5.1 Lvl) [place] 853501-10-19 09:00:00 Test Item Value Reference Range Interpretation Comments Chloride Lvl (test code = Chloride Lvl) 109 95-109 [place] 853501-10-19 09:00:00 Test Item Value Reference Range Interpretation Comments CO2 (test code = CO2) 24 24-32 [facility]2021-10-19 09:00:00 Test Item Value Reference Range Interpretation Comments AGAP (test code = AGAP) 10.1 10.0-20.0 [place] 853501-10-19 09:00:00 Test Item Value Reference Range Interpretation Comments Calcium Lvl (test code = Calcium Lvl) 8.6 8.5-10.5 [facility]2021-10-19 09:00:00 Test Item Value Reference Range Interpretation Comments eGFR (test code = eGFR) 97 [facility] CentralXcudkmmTXLEIQKVXL9007-35-13 09:00:00 Test Item Value Reference Range Interpretation Comments Segs (test code = Segs) 90.2 45.0-75.0 [place] 139731-10-19 09:00:00 Test Item Value Reference Range Interpretation Comments Lymphocytes (test code = Lymphocytes) 4.7 20.0-40.0 [place] 139731-10-19 09:00:00 Test Item Value Reference Range Interpretation Comments Monocytes (test code = Monocytes) 5.0 2.0-12.0 [place] 139731-10-19 09:00:00 Test Item Value Reference Range Interpretation Comments Basophils (test code = 0.1 See_Comment [Aut omated message] The Basophils) system which ge nerated this result tra nsmitted reference range : <=1.0. The reference r arelis was not used to int erpret this result as normal/abnormal . [place] 139731-10-19 09:00:00 Test Item Value Reference Range Interpretation Comments Neutrophils # (test code = Neutrophils 8.4 1.5-8.1 #) [place] 139731-10-19 09:00:00 Test Item Value Reference Range Interpretation Comments Lymphocytes # (test code = Lymphocytes 0.4 1.0-5.5 #) [place] 139731-10-19 09:00:00 Test Item Value Reference Range Interpretation Comments Monocytes # (test code 0.5 See_Comment [Aut omated message] The = Monocytes #) system which generated this result tra nsmitted reference range : <=0.8. The reference r arelis was not used to int erpret this result as normal/abnormal . [place] 139731-10-19 09:00:00 Test Item Value Reference Range Interpretation Comments WBC (test code = WBC) 9.3 3.7-10.4 [place] 139731-10-19 09:00:00 Test Item Value Reference Range Interpretation Comments RBC (test code = RBC) 3.41 4.20-5.40 [place] 139731-10-19 09:00:00 Test Item Value Reference Range Interpretation Comments Hgb (test code = Hgb) 9.7 12.0-16.0 [facility] CentralEufqiixFKALKTGPYU3496-29-71 09:00:00 Test Item Value Reference Range Interpretation Comments Hct (test code = Hct) 29.5 36.0-48.0 [facility] CentralWcmfxjwCVMHNWMQYL6557-21-44 09:00:00 Test Item Value Reference Range Interpretation Comments MCV (test code = MCV) 86.4 80.0-98.0 [facility] CentralWoeasxgDRATMWXYND2341-77-91 09:00:00 Test Item Value Reference Range Interpretation Comments MCH (test code = MCH) 28.3 pg 27.0-31.0 [facility] CentralGogqiasTGLRYDOPFJ1344-16-00 09:00:00 Test Item Value Reference Range Interpretation Comments MCHC (test code = MCHC) 32.8 32.0-36.0 [facility] CentralXtfercePPOXYGMTMU8673-54-14 09:00:00 Test Item Value Reference Range Interpretation Comments RDW (test code = RDW) 14.9 11.5-14.5 [facility] CentralRymcqqvNIYXWWOWUD6870-15-06 09:00:00 Test Item Value Reference Range Interpretation Comments Platelet (test code = Platelet) 353 133-450 [facility] CentralFwrxxqpDYEDYVUNAH7937-96-04 09:00:00 Test Item Value Reference Range Interpretation Comments MPV (test code = MPV) 8.3 7.4-10.4 [facility]2021-10-19 09:00:00 Test Item Value Reference Range Interpretation Comments Glucose Lvl (test code = Glucose Lvl) 173 70-99 [facility]2021-10-19 09:00:00 Test Item Value Reference Range Interpretation Comments BUN (test code = BUN) 8 7-22 [facility]2021-10-19 09:00:00 Test Item Value Reference Range Interpretation Comments Creatinine Lvl (test code = Creatinine 0.55 0.50-1.40 Lvl) [facility]2021-10-19 09:00:00 Test Item Value Reference Range Interpretation Comments Sodium Lvl (test code = Sodium Lvl) 139 135-145 [facility]2021-10-19 09:00:00 Test Item Value Reference Range Interpretation Comments Potassium Lvl (test code = Potassium 4.1 3.5-5.1 Lvl) [place] 853501-10-19 09:00:00 Test Item Value Reference Range Interpretation Comments Chloride Lvl (test code = Chloride Lvl) 109 95-109 [place] 853501-10-19 09:00:00 Test Item Value Reference Range Interpretation Comments CO2 (test code = CO2) 24 24-32 [place] 853501-10-19 09:00:00 Test Item Value Reference Range Interpretation Comments AGAP (test code = AGAP) 10.1 10.0-20.0 [place] [address]-10-19 09:00:00 Test Item Value Reference Range Interpretation Comments Calcium Lvl (test code = Calcium Lvl) 8.6 8.5-10.5 [place] 853501-10-19 09:00:00 Test Item Value Reference Range Interpretation Comments eGFR (test code = eGFR) 97 [place] 139731-10-19 09:00:00 Test Item Value Reference Range Interpretation Comments Segs (test code = Segs) 90.2 45.0-75.0 [place] 139731-10-19 09:00:00 Test Item Value Reference Range Interpretation Comments Lymphocytes (test code = Lymphocytes) 4.7 20.0-40.0 [place] 139731-10-19 09:00:00 Test Item Value Reference Range Interpretation Comments Monocytes (test code = Monocytes) 5.0 2.0-12.0 [place] 139731-10-19 09:00:00 Test Item Value Reference Range Interpretation Comments Basophils (test code = 0.1 See_Comment [Aut omated message] The Basophils) system which ge nerated this result tra nsmitted reference range : <=1.0. The reference r arelis was not used to int erpret this result as normal/abnormal . [place] 139731-10-19 09:00:00 Test Item Value Reference Range Interpretation Comments Neutrophils # (test code = Neutrophils 8.4 1.5-8.1 #) [place] 139731-10-19 09:00:00 Test Item Value Reference Range Interpretation Comments Lymphocytes # (test code = Lymphocytes 0.4 1.0-5.5 #) [place] 139731-10-19 09:00:00 Test Item Value Reference Range Interpretation Comments Monocytes # (test code 0.5 See_Comment [Aut omated message] The = Monocytes #) system which generated this result tra nsmitted reference range : <=0.8. The reference r arelis was not used to int erpret this result as normal/abnormal . [facility] CentralXgwiicuNYGBHMGJPK7001-12-66 09:00:00 Test Item Value Reference Range Interpretation Comments WBC (test code = WBC) 9.3 3.7-10.4 [facility] CentralWjkmrhhGKNWCXJQXG7271-83-46 09:00:00 Test Item Value Reference Range Interpretation Comments RBC (test code = RBC) 3.41 4.20-5.40 [facility] CentralXkkumbzHUMNQMGFMS4370-81-07 09:00:00 Test Item Value Reference Range Interpretation Comments Hgb (test code = Hgb) 9.7 12.0-16.0 [facility] CentralQvbxamcEVZWSSDFOQ7505-44-79 09:00:00 Test Item Value Reference Range Interpretation Comments Hct (test code = Hct) 29.5 36.0-48.0 [facility] CentralAtzwufaANMKNGRCIS1963-80-33 09:00:00 Test Item Value Reference Range Interpretation Comments MCV (test code = MCV) 86.4 80.0-98.0 [facility] CentralKdphqpdJPTLKTMAAH5418-68-38 09:00:00 Test Item Value Reference Range Interpretation Comments MCH (test code = MCH) 28.3 pg 27.0-31.0 [facility] CentralKlwmvsgCWKVAIQJDG8067-74-55 09:00:00 Test Item Value Reference Range Interpretation Comments MCHC (test code = MCHC) 32.8 32.0-36.0 [facility] CentralNcvnlohHTKGORWIKT8805-93-73 09:00:00 Test Item Value Reference Range Interpretation Comments RDW (test code = RDW) 14.9 11.5-14.5 [facility] CentralIydceojWTDJSKCLTG8324-33-56 09:00:00 Test Item Value Reference Range Interpretation Comments Platelet (test code = Platelet) 353 133-450 [facility] CentralYfziemyRWLWCWJCNB9250-27-37 09:00:00 Test Item Value Reference Range Interpretation Comments MPV (test code = MPV) 8.3 7.4-10.4 [facility]2021-10-19 09:00:00 Test Item Value Reference Range Interpretation Comments Glucose Lvl (test code = Glucose Lvl) 173 70-99 [facility]2021-10-19 09:00:00 Test Item Value Reference Range Interpretation Comments BUN (test code = BUN) 8 7-22 [place] 853501-10-19 09:00:00 Test Item Value Reference Range Interpretation Comments Creatinine Lvl (test code = Creatinine 0.55 0.50-1.40 Lvl) [facility]2021-10-19 09:00:00 Test Item Value Reference Range Interpretation Comments Sodium Lvl (test code = Sodium Lvl) 139 135-145 [place] 853501-10-19 09:00:00 Test Item Value Reference Range Interpretation Comments Potassium Lvl (test code = Potassium 4.1 3.5-5.1 Lvl) [place] 853501-10-19 09:00:00 Test Item Value Reference Range Interpretation Comments Chloride Lvl (test code = Chloride Lvl) 109 95-109 [place] 853501-10-19 09:00:00 Test Item Value Reference Range Interpretation Comments CO2 (test code = CO2) 24 24-32 [place] 853501-10-19 09:00:00 Test Item Value Reference Range Interpretation Comments AGAP (test code = AGAP) 10.1 10.0-20.0 [place] 853501-10-19 09:00:00 Test Item Value Reference Range Interpretation Comments Calcium Lvl (test code = Calcium Lvl) 8.6 8.5-10.5 [place] 853501-10-19 09:00:00 Test Item Value Reference Range Interpretation Comments eGFR (test code = eGFR) 97 [place] 139731-10-19 09:00:00 Test Item Value Reference Range Interpretation Comments Segs (test code = Segs) 90.2 45.0-75.0 [place] [address]-10-19 09:00:00 Test Item Value Reference Range Interpretation Comments Lymphocytes (test code = Lymphocytes) 4.7 20.0-40.0 [place] 139731-10-19 09:00:00 Test Item Value Reference Range Interpretation Comments Monocytes (test code = Monocytes) 5.0 2.0-12.0 [place] 139731-10-19 09:00:00 Test Item Value Reference Range Interpretation Comments Basophils (test code = 0.1 See_Comment [Aut omated message] The Basophils) system which ge nerated this result tra nsmitted reference range : <=1.0. The reference r arelis was not used to int erpret this result as normal/abnormal . [facility] CentralLsntqpjTZTCKNBWZJ7281-57-06 09:00:00 Test Item Value Reference Range Interpretation Comments Neutrophils # (test code = Neutrophils 8.4 1.5-8.1 #) [facility] CentralZrjfmmcWUJVBOHLDW1104-16-80 09:00:00 Test Item Value Reference Range Interpretation Comments Lymphocytes # (test code = Lymphocytes 0.4 1.0-5.5 #) [facility] CentralXplcastPIDNKVGWTM0750-55-89 09:00:00 Test Item Value Reference Range Interpretation Comments Monocytes # (test code 0.5 See_Comment [Aut omated message] The = Monocytes #) system which generated this result tra nsmitted reference range : <=0.8. The reference r arelis was not used to int erpret this result as normal/abnormal . [facility] CentralOibkoodNBTAABQLHQ4381-14-41 09:00:00 Test Item Value Reference Range Interpretation Comments WBC (test code = WBC) 9.3 3.7-10.4 [facility] CentralFjcyxfbKYZGCMZXSD6658-59-49 09:00:00 Test Item Value Reference Range Interpretation Comments RBC (test code = RBC) 3.41 4.20-5.40 [facility] CentralEfywudhVEGDOPFNQK1282-10-43 09:00:00 Test Item Value Reference Range Interpretation Comments Hgb (test code = Hgb) 9.7 12.0-16.0 [facility] CentralWoxeuwyMXYNNKQLNM4424-85-44 09:00:00 Test Item Value Reference Range Interpretation Comments Hct (test code = Hct) 29.5 36.0-48.0 [facility] CentralNphxwjoLTNSVSPBUM9469-54-41 09:00:00 Test Item Value Reference Range Interpretation Comments MCV (test code = MCV) 86.4 80.0-98.0 [facility] CentralFsafacaDEPEIJYSDS4536-90-60 09:00:00 Test Item Value Reference Range Interpretation Comments MCH (test code = MCH) 28.3 pg 27.0-31.0 [facility] CentralGcuapipFKDBRRQLAF1358-78-60 09:00:00 Test Item Value Reference Range Interpretation Comments MCHC (test code = MCHC) 32.8 32.0-36.0 [place] 139731-10-19 09:00:00 Test Item Value Reference Range Interpretation Comments RDW (test code = RDW) 14.9 11.5-14.5 [place] 139731-10-19 09:00:00 Test Item Value Reference Range Interpretation Comments Platelet (test code = Platelet) 353 133-450 [facility] CentralMahetwtVTHGAIAMKE3037-61-67 09:00:00 Test Item Value Reference Range Interpretation Comments MPV (test code = MPV) 8.3 7.4-10.4 [place] 853501-10-19 09:00:00 Test Item Value Reference Range Interpretation Comments Glucose Lvl (test code = Glucose Lvl) 173 70-99 [place] 853501-10-19 09:00:00 Test Item Value Reference Range Interpretation Comments BUN (test code = BUN) 8 7-22 [place] 853501-10-19 09:00:00 Test Item Value Reference Range Interpretation Comments Creatinine Lvl (test code = Creatinine 0.55 0.50-1.40 Lvl) [place] 853501-10-19 09:00:00 Test Item Value Reference Range Interpretation Comments Sodium Lvl (test code = Sodium Lvl) 139 135-145 [place] 853501-10-19 09:00:00 Test Item Value Reference Range Interpretation Comments Potassium Lvl (test code = Potassium 4.1 3.5-5.1 Lvl) [place] 853501-10-19 09:00:00 Test Item Value Reference Range Interpretation Comments Chloride Lvl (test code = Chloride Lvl) 109 95-109 [facility]2021-10-19 09:00:00 Test Item Value Reference Range Interpretation Comments CO2 (test code = CO2) 24 24-32 [facility]2021-10-19 09:00:00 Test Item Value Reference Range Interpretation Comments AGAP (test code = AGAP) 10.1 10.0-20.0 [place] 853501-10-19 09:00:00 Test Item Value Reference Range Interpretation Comments Calcium Lvl (test code = Calcium Lvl) 8.6 8.5-10.5 [place] 853501-10-19 09:00:00 Test Item Value Reference Range Interpretation Comments eGFR (test code = eGFR) 97 [facility] CentralJwaidktPXUGAZSLJM1337-10-31 09:00:00 Test Item Value Reference Range Interpretation Comments Segs (test code = Segs) 90.2 45.0-75.0 [facility] CentralQwwcpejDIPHVGVVGO0553-90-77 09:00:00 Test Item Value Reference Range Interpretation Comments Lymphocytes (test code = Lymphocytes) 4.7 20.0-40.0 [facility] CentralOkngqqaYBUUJDGKVN1500-18-32 09:00:00 Test Item Value Reference Range Interpretation Comments Monocytes (test code = Monocytes) 5.0 2.0-12.0 [facility] CentralPrfjyzfAAXRFMFESN0273-99-65 09:00:00 Test Item Value Reference Range Interpretation Comments Basophils (test code = 0.1 See_Comment [Aut omated message] The Basophils) system which ge nerated this result tra nsmitted reference range : <=1.0. The reference r arelis was not used to int erpret this result as normal/abnormal . [facility] CentralYbtvgpgDIXKJYZJWG8386-34-10 09:00:00 Test Item Value Reference Range Interpretation Comments Neutrophils # (test code = Neutrophils 8.4 1.5-8.1 #) [facility] CentralVvqflkpEGHXHJGODO6809-21-85 09:00:00 Test Item Value Reference Range Interpretation Comments Lymphocytes # (test code = Lymphocytes 0.4 1.0-5.5 #) [facility] CentralSrdoqicWDLXKSWVJK3924-90-49 09:00:00 Test Item Value Reference Range Interpretation Comments Monocytes # (test code 0.5 See_Comment [Aut omated message] The = Monocytes #) system which generated this result tra nsmitted reference range : <=0.8. The reference r arelis was not used to int erpret this result as normal/abnormal . [facility] CentralQwabondHRFCNFDQFS4004-02-62 09:00:00 Test Item Value Reference Range Interpretation Comments WBC (test code = WBC) 9.3 3.7-10.4 [facility] CentralSgonjxfQMWIDSPORJ9051-86-11 09:00:00 Test Item Value Reference Range Interpretation Comments RBC (test code = RBC) 3.41 4.20-5.40 [place] 139731-10-19 09:00:00 Test Item Value Reference Range Interpretation Comments Hgb (test code = Hgb) 9.7 12.0-16.0 [place] [address]-10-19 09:00:00 Test Item Value Reference Range Interpretation Comments Hct (test code = Hct) 29.5 36.0-48.0 [place] 139731-10-19 09:00:00 Test Item Value Reference Range Interpretation Comments MCV (test code = MCV) 86.4 80.0-98.0 [place] 139731-10-19 09:00:00 Test Item Value Reference Range Interpretation Comments MCH (test code = MCH) 28.3 pg 27.0-31.0 [place] 139731-10-19 09:00:00 Test Item Value Reference Range Interpretation Comments MCHC (test code = MCHC) 32.8 32.0-36.0 [place] 139731-10-19 09:00:00 Test Item Value Reference Range Interpretation Comments RDW (test code = RDW) 14.9 11.5-14.5 [place] 139731-10-19 09:00:00 Test Item Value Reference Range Interpretation Comments Platelet (test code = Platelet) 353 133-450 [facility] CentralKapzmybSVECCYNTTG1730-28-68 09:00:00 Test Item Value Reference Range Interpretation Comments MPV (test code = MPV) 8.3 7.4-10.4 [facility]2021-10-19 09:00:00 Test Item Value Reference Range Interpretation Comments Glucose Lvl (test code = Glucose Lvl) 173 70-99 [place] 853501-10-19 09:00:00 Test Item Value Reference Range Interpretation Comments BUN (test code = BUN) 8 7-22 [place] 853501-10-19 09:00:00 Test Item Value Reference Range Interpretation Comments Creatinine Lvl (test code = Creatinine 0.55 0.50-1.40 Lvl) [facility]2021-10-19 09:00:00 Test Item Value Reference Range Interpretation Comments Sodium Lvl (test code = Sodium Lvl) 139 135-145 [facility]2021-10-19 09:00:00 Test Item Value Reference Range Interpretation Comments Potassium Lvl (test code = Potassium 4.1 3.5-5.1 Lvl) [facility]2021-10-19 09:00:00 Test Item Value Reference Range Interpretation Comments Chloride Lvl (test code = Chloride Lvl) 109 95-109 [place] 853501-10-19 09:00:00 Test Item Value Reference Range Interpretation Comments CO2 (test code = CO2) 24 24-32 [place] 853501-10-19 09:00:00 Test Item Value Reference Range Interpretation Comments AGAP (test code = AGAP) 10.1 10.0-20.0 [place] 853501-10-19 09:00:00 Test Item Value Reference Range Interpretation Comments Calcium Lvl (test code = Calcium Lvl) 8.6 8.5-10.5 [place] 853501-10-19 09:00:00 Test Item Value Reference Range Interpretation Comments eGFR (test code = eGFR) 97 [facility] CentralKjbexucRHPIOIYWXD9838-22-41 09:00:00 Test Item Value Reference Range Interpretation Comments Segs (test code = Segs) 90.2 45.0-75.0 [place] 139731-10-19 09:00:00 Test Item Value Reference Range Interpretation Comments Lymphocytes (test code = Lymphocytes) 4.7 20.0-40.0 [place] 139731-10-19 09:00:00 Test Item Value Reference Range Interpretation Comments Monocytes (test code = Monocytes) 5.0 2.0-12.0 [facility] CentralWaczcqmJDWHQTHKHW2051-13-51 09:00:00 Test Item Value Reference Range Interpretation Comments Basophils (test code = 0.1 See_Comment [Aut omated message] The Basophils) system which ge nerated this result tra nsmitted reference range : <=1.0. The reference r arelis was not used to int erpret this result as normal/abnormal . [place] 139731-10-19 09:00:00 Test Item Value Reference Range Interpretation Comments Neutrophils # (test code = Neutrophils 8.4 1.5-8.1 #) [place] 139731-10-19 09:00:00 Test Item Value Reference Range Interpretation Comments Lymphocytes # (test code = Lymphocytes 0.4 1.0-5.5 #) [place] 139731-10-19 09:00:00 Test Item Value Reference Range Interpretation Comments Monocytes # (test code 0.5 See_Comment [Aut omated message] The = Monocytes #) system which generated this result tra nsmitted reference range : <=0.8. The reference r arelis was not used to int erpret this result as normal/abnormal . [facility] CentralXwgqeieMWGSIXTORH6549-93-37 09:00:00 Test Item Value Reference Range Interpretation Comments WBC (test code = WBC) 9.3 3.7-10.4 [facility] CentralNevcvvpUSISMVMAJU0594-06-26 09:00:00 Test Item Value Reference Range Interpretation Comments RBC (test code = RBC) 3.41 4.20-5.40 [facility] CentralGjalvmoBIPUABQWFO3162-91-31 09:00:00 Test Item Value Reference Range Interpretation Comments Hgb (test code = Hgb) 9.7 12.0-16.0 [facility] CentralUvfzewhDSKHWTQVKP3136-86-05 09:00:00 Test Item Value Reference Range Interpretation Comments Hct (test code = Hct) 29.5 36.0-48.0 [facility] CentralXyagdlqTXZXKADACC3343-18-31 09:00:00 Test Item Value Reference Range Interpretation Comments MCV (test code = MCV) 86.4 80.0-98.0 [facility] CentralTqcniyiPPRNFMDDZE9321-83-86 09:00:00 Test Item Value Reference Range Interpretation Comments MCH (test code = MCH) 28.3 pg 27.0-31.0 [facility] CentralJrsobdeAXUWVLDRIS9035-84-27 09:00:00 Test Item Value Reference Range Interpretation Comments MCHC (test code = MCHC) 32.8 32.0-36.0 [facility] CentralCotxyogXYJLAIYHUD7787-57-08 09:00:00 Test Item Value Reference Range Interpretation Comments RDW (test code = RDW) 14.9 11.5-14.5 [facility] CentralJahypbyCBGCPLXZQZ5475-44-39 09:00:00 Test Item Value Reference Range Interpretation Comments Platelet (test code = Platelet) 353 133-450 [facility] CentralFbzqghsFLNBZGHVOX8361-06-39 09:00:00 Test Item Value Reference Range Interpretation Comments MPV (test code = MPV) 8.3 7.4-10.4 [facility]2021-10-19 09:00:00 Test Item Value Reference Range Interpretation Comments Glucose Lvl (test code = Glucose Lvl) 173 70-99 [facility]2021-10-19 09:00:00 Test Item Value Reference Range Interpretation Comments BUN (test code = BUN) 8 7-22 [place] 853501-10-19 09:00:00 Test Item Value Reference Range Interpretation Comments Creatinine Lvl (test code = Creatinine 0.55 0.50-1.40 Lvl) [place] 853501-10-19 09:00:00 Test Item Value Reference Range Interpretation Comments Sodium Lvl (test code = Sodium Lvl) 139 135-145 [place] 853501-10-19 09:00:00 Test Item Value Reference Range Interpretation Comments Potassium Lvl (test code = Potassium 4.1 3.5-5.1 Lvl) [place] 853501-10-19 09:00:00 Test Item Value Reference Range Interpretation Comments Chloride Lvl (test code = Chloride Lvl) 109 95-109 [place] 853501-10-19 09:00:00 Test Item Value Reference Range Interpretation Comments CO2 (test code = CO2) 24 24-32 [place] 853501-10-19 09:00:00 Test Item Value Reference Range Interpretation Comments AGAP (test code = AGAP) 10.1 10.0-20.0 [place] 853501-10-19 09:00:00 Test Item Value Reference Range Interpretation Comments Calcium Lvl (test code = Calcium Lvl) 8.6 8.5-10.5 [place] 853501-10-19 09:00:00 Test Item Value Reference Range Interpretation Comments eGFR (test code = eGFR) 97 [place] 139731-10-19 09:00:00 Test Item Value Reference Range Interpretation Comments Segs (test code = Segs) 90.2 45.0-75.0 [place] 139731-10-19 09:00:00 Test Item Value Reference Range Interpretation Comments Lymphocytes (test code = Lymphocytes) 4.7 20.0-40.0 [place] 139731-10-19 09:00:00 Test Item Value Reference Range Interpretation Comments Monocytes (test code = Monocytes) 5.0 2.0-12.0 [place] 139731-10-19 09:00:00 Test Item Value Reference Range Interpretation Comments Basophils (test code = 0.1 See_Comment [Aut omated message] The Basophils) system which ge nerated this result tra nsmitted reference range : <=1.0. The reference r arelis was not used to int erpret this result as normal/abnormal . [facility]SusurttCNQSMFDDVY8890-68-15 09:00:00 Test Item Value Reference Range Interpretation Comments Neutrophils # (test code = Neutrophils 8.4 1.5-8.1 #) [facility] CentralUhgfelwQRTWSIUZMM1252-52-26 09:00:00 Test Item Value Reference Range Interpretation Comments Lymphocytes # (test code = Lymphocytes 0.4 1.0-5.5 #) [facility] CentralVqjhhmuDVIPOKNBSO9063-50-36 09:00:00 Test Item Value Reference Range Interpretation Comments Monocytes # (test code 0.5 See_Comment [Aut omated message] The = Monocytes #) system which generated this result tra nsmitted reference range : <=0.8. The reference r arelis was not used to int erpret this result as normal/abnormal . [facility] CentralJlkaojrMMEWNYYINQ3860-10-06 09:00:00 Test Item Value Reference Range Interpretation Comments WBC (test code = WBC) 9.3 3.7-10.4 [place] 139731-10-19 09:00:00 Test Item Value Reference Range Interpretation Comments RBC (test code = RBC) 3.41 4.20-5.40 [facility] CentralFaakukpLYFODYLYNC8106-99-83 09:00:00 Test Item Value Reference Range Interpretation Comments Hgb (test code = Hgb) 9.7 12.0-16.0 [facility] CentralVkzmqpmQPPPOVDOFK0331-94-20 09:00:00 Test Item Value Reference Range Interpretation Comments Hct (test code = Hct) 29.5 36.0-48.0 [place] 139731-10-19 09:00:00 Test Item Value Reference Range Interpretation Comments MCV (test code = MCV) 86.4 80.0-98.0 [place] 139731-10-19 09:00:00 Test Item Value Reference Range Interpretation Comments MCH (test code = MCH) 28.3 pg 27.0-31.0 [place] 139731-10-19 09:00:00 Test Item Value Reference Range Interpretation Comments MCHC (test code = MCHC) 32.8 32.0-36.0 [place] 139731-10-19 09:00:00 Test Item Value Reference Range Interpretation Comments RDW (test code = RDW) 14.9 11.5-14.5 [place] 139731-10-19 09:00:00 Test Item Value Reference Range Interpretation Comments Platelet (test code = Platelet) 353 133-450 [place] 139731-10-19 09:00:00 Test Item Value Reference Range Interpretation Comments MPV (test code = MPV) 8.3 7.4-10.4 [place] 853501-10-19 09:00:00 Test Item Value Reference Range Interpretation Comments Glucose Lvl (test code = Glucose Lvl) 173 70-99 [place] 853501-10-19 09:00:00 Test Item Value Reference Range Interpretation Comments BUN (test code = BUN) 8 7-22 [facility]2021-10-19 09:00:00 Test Item Value Reference Range Interpretation Comments Creatinine Lvl (test code = Creatinine 0.55 0.50-1.40 Lvl) [place] 853501-10-19 09:00:00 Test Item Value Reference Range Interpretation Comments Sodium Lvl (test code = Sodium Lvl) 139 135-145 [place] 853501-10-19 09:00:00 Test Item Value Reference Range Interpretation Comments Potassium Lvl (test code = Potassium 4.1 3.5-5.1 Lvl) [facility]2021-10-19 09:00:00 Test Item Value Reference Range Interpretation Comments Chloride Lvl (test code = Chloride Lvl) 109 95-109 [place] 853501-10-19 09:00:00 Test Item Value Reference Range Interpretation Comments CO2 (test code = CO2) 24 24-32 [place] 853501-10-19 09:00:00 Test Item Value Reference Range Interpretation Comments AGAP (test code = AGAP) 10.1 10.0-20.0 [place] 853501-10-19 09:00:00 Test Item Value Reference Range Interpretation Comments Calcium Lvl (test code = Calcium Lvl) 8.6 8.5-10.5 [place] 853501-10-19 09:00:00 Test Item Value Reference Range Interpretation Comments eGFR (test code = eGFR) 97 [place] 139731-10-19 09:00:00 Test Item Value Reference Range Interpretation Comments Segs (test code = Segs) 90.2 45.0-75.0 [facility] CentralNzgquqtPRWWGEDKEJ5720-78-53 09:00:00 Test Item Value Reference Range Interpretation Comments Lymphocytes (test code = Lymphocytes) 4.7 20.0-40.0 [facility] CentralJfneaboENVQQCONYR2331-61-02 09:00:00 Test Item Value Reference Range Interpretation Comments Monocytes (test code = Monocytes) 5.0 2.0-12.0 [facility] CentralXykmlkrJBHOTOWNRF1228-27-30 09:00:00 Test Item Value Reference Range Interpretation Comments Basophils (test code = 0.1 See_Comment [Aut omated message] The Basophils) system which ge nerated this result tra nsmitted reference range : <=1.0. The reference r arelis was not used to int erpret this result as normal/abnormal . [facility] CentralOphvcehNUEISYKKUE7299-65-27 09:00:00 Test Item Value Reference Range Interpretation Comments Neutrophils # (test code = Neutrophils 8.4 1.5-8.1 #) [facility] CentralAscpgrxIFIIPFVYCP2371-99-67 09:00:00 Test Item Value Reference Range Interpretation Comments Lymphocytes # (test code = Lymphocytes 0.4 1.0-5.5 #) [facility] CentralPxjjmgtDSNKRCQNUT7904-68-96 09:00:00 Test Item Value Reference Range Interpretation Comments Monocytes # (test code 0.5 See_Comment [Aut omated message] The = Monocytes #) system which generated this result tra nsmitted reference range : <=0.8. The reference r arelis was not used to int erpret this result as normal/abnormal . [facility] CentralIeatcwvBIRGTTFDKW8448-94-53 09:00:00 Test Item Value Reference Range Interpretation Comments WBC (test code = WBC) 9.3 3.7-10.4 [facility] CentralWgpzjtcVBONPCZYEV4462-02-95 09:00:00 Test Item Value Reference Range Interpretation Comments RBC (test code = RBC) 3.41 4.20-5.40 [facility] CentralOjrbvswZUGHVQRLCP3387-03-55 09:00:00 Test Item Value Reference Range Interpretation Comments Hgb (test code = Hgb) 9.7 12.0-16.0 [facility] CentralVjzofymRCDGKOMBOY5315-38-26 09:00:00 Test Item Value Reference Range Interpretation Comments Hct (test code = Hct) 29.5 36.0-48.0 [place] 139731-10-19 09:00:00 Test Item Value Reference Range Interpretation Comments MCV (test code = MCV) 86.4 80.0-98.0 [place] 139731-10-19 09:00:00 Test Item Value Reference Range Interpretation Comments MCH (test code = MCH) 28.3 pg 27.0-31.0 [place] 139731-10-19 09:00:00 Test Item Value Reference Range Interpretation Comments MCHC (test code = MCHC) 32.8 32.0-36.0 [place] 139731-10-19 09:00:00 Test Item Value Reference Range Interpretation Comments RDW (test code = RDW) 14.9 11.5-14.5 [place] [address]-10-19 09:00:00 Test Item Value Reference Range Interpretation Comments Platelet (test code = Platelet) 353 133-450 [place] 139731-10-19 09:00:00 Test Item Value Reference Range Interpretation Comments MPV (test code = MPV) 8.3 7.4-10.4 [facility]2021-10-19 09:00:00 Test Item Value Reference Range Interpretation Comments Glucose Lvl (test code = Glucose Lvl) 173 70-99 [facility]2021-10-19 09:00:00 Test Item Value Reference Range Interpretation Comments BUN (test code = BUN) 8 7-22 [facility]2021-10-19 09:00:00 Test Item Value Reference Range Interpretation Comments Creatinine Lvl (test code = Creatinine 0.55 0.50-1.40 Lvl) [facility]2021-10-19 09:00:00 Test Item Value Reference Range Interpretation Comments Sodium Lvl (test code = Sodium Lvl) 139 135-145 [facility]2021-10-19 09:00:00 Test Item Value Reference Range Interpretation Comments Potassium Lvl (test code = Potassium 4.1 3.5-5.1 Lvl) [facility]2021-10-19 09:00:00 Test Item Value Reference Range Interpretation Comments Chloride Lvl (test code = Chloride Lvl) 109 95-109 [place] 853501-10-19 09:00:00 Test Item Value Reference Range Interpretation Comments CO2 (test code = CO2) 24 24-32 [place] 853501-10-19 09:00:00 Test Item Value Reference Range Interpretation Comments AGAP (test code = AGAP) 10.1 10.0-20.0 [place] 853501-10-19 09:00:00 Test Item Value Reference Range Interpretation Comments Calcium Lvl (test code = Calcium Lvl) 8.6 8.5-10.5 [place] 853501-10-19 09:00:00 Test Item Value Reference Range Interpretation Comments eGFR (test code = eGFR) 97 [place] 139731-10-19 09:00:00 Test Item Value Reference Range Interpretation Comments Segs (test code = Segs) 90.2 45.0-75.0 [place] 139731-10-19 09:00:00 Test Item Value Reference Range Interpretation Comments Lymphocytes (test code = Lymphocytes) 4.7 20.0-40.0 [place] 139731-10-19 09:00:00 Test Item Value Reference Range Interpretation Comments Monocytes (test code = Monocytes) 5.0 2.0-12.0 [place] 139731-10-19 09:00:00 Test Item Value Reference Range Interpretation Comments Basophils (test code = 0.1 See_Comment [Aut omated message] The Basophils) system which ge nerated this result tra nsmitted reference range : <=1.0. The reference r arelis was not used to int erpret this result as normal/abnormal . [place] 139731-10-19 09:00:00 Test Item Value Reference Range Interpretation Comments Neutrophils # (test code = Neutrophils 8.4 1.5-8.1 #) [place] 139731-10-19 09:00:00 Test Item Value Reference Range Interpretation Comments Lymphocytes # (test code = Lymphocytes 0.4 1.0-5.5 #) [place] 139731-10-19 09:00:00 Test Item Value Reference Range Interpretation Comments Monocytes # (test code 0.5 See_Comment [Aut omated message] The = Monocytes #) system which generated this result tra nsmitted reference range : <=0.8. The reference r arelis was not used to int erpret this result as normal/abnormal . [facility] CentralIpvzqeqCMZGNISHWC3624-51-75 09:00:00 Test Item Value Reference Range Interpretation Comments WBC (test code = WBC) 9.3 3.7-10.4 [facility] CentralSipctvvEYAUISZMKV6085-08-34 09:00:00 Test Item Value Reference Range Interpretation Comments RBC (test code = RBC) 3.41 4.20-5.40 [facility] CentralNearsahRKXNCAQCTK0875-16-20 09:00:00 Test Item Value Reference Range Interpretation Comments Hgb (test code = Hgb) 9.7 12.0-16.0 [facility] CentralCjbonhkTQHOEHSGHW9914-14-11 09:00:00 Test Item Value Reference Range Interpretation Comments Hct (test code = Hct) 29.5 36.0-48.0 [facility] CentralWvgxllxEBOABKSNYF0221-45-27 09:00:00 Test Item Value Reference Range Interpretation Comments MCV (test code = MCV) 86.4 80.0-98.0 [facility] CentralQllggpnUYJWSALXBV1999-74-34 09:00:00 Test Item Value Reference Range Interpretation Comments MCH (test code = MCH) 28.3 pg 27.0-31.0 [facility] CentralKxsidvmVTBWJBSNJC1788-57-17 09:00:00 Test Item Value Reference Range Interpretation Comments MCHC (test code = MCHC) 32.8 32.0-36.0 [facility] CentralAbjexlpIORJBCYZXG1634-92-17 09:00:00 Test Item Value Reference Range Interpretation Comments RDW (test code = RDW) 14.9 11.5-14.5 [facility] CentralUwqevwiWXYLGCURFU5596-51-64 09:00:00 Test Item Value Reference Range Interpretation Comments Platelet (test code = Platelet) 353 133-450 [facility] CentralYdyuxjxAKDXALHBMH9056-29-77 09:00:00 Test Item Value Reference Range Interpretation Comments MPV (test code = MPV) 8.3 7.4-10.4 [facility]2021-10-19 09:00:00 Test Item Value Reference Range Interpretation Comments Glucose Lvl (test code = Glucose Lvl) 173 70-99 [facility]2021-10-19 09:00:00 Test Item Value Reference Range Interpretation Comments BUN (test code = BUN) 8 7-22 [facility]2021-10-19 09:00:00 Test Item Value Reference Range Interpretation Comments Creatinine Lvl (test code = Creatinine 0.55 0.50-1.40 Lvl) [place] [address]3501-10-19 09:00:00 Test Item Value Reference Range Interpretation Comments Sodium Lvl (test code = Sodium Lvl) 139 135-145 [place] 853501-10-19 09:00:00 Test Item Value Reference Range Interpretation Comments Potassium Lvl (test code = Potassium 4.1 3.5-5.1 Lvl) [place] 853501-10-19 09:00:00 Test Item Value Reference Range Interpretation Comments Chloride Lvl (test code = Chloride Lvl) 109 95-109 [place] 853501-10-19 09:00:00 Test Item Value Reference Range Interpretation Comments CO2 (test code = CO2) 24 24-32 [place] [address]3501-10-19 09:00:00 Test Item Value Reference Range Interpretation Comments AGAP (test code = AGAP) 10.1 10.0-20.0 [place] [address]3501-10-19 09:00:00 Test Item Value Reference Range Interpretation Comments Calcium Lvl (test code = Calcium Lvl) 8.6 8.5-10.5 [place] 853501-10-19 09:00:00 Test Item Value Reference Range Interpretation Comments eGFR (test code = eGFR) 97 [place] 139731-10-19 09:00:00 Test Item Value Reference Range Interpretation Comments Segs (test code = Segs) 90.2 45.0-75.0 [place] 139731-10-19 09:00:00 Test Item Value Reference Range Interpretation Comments Lymphocytes (test code = Lymphocytes) 4.7 20.0-40.0 [place] 139731-10-19 09:00:00 Test Item Value Reference Range Interpretation Comments Monocytes (test code = Monocytes) 5.0 2.0-12.0 [place] 139731-10-19 09:00:00 Test Item Value Reference Range Interpretation Comments Basophils (test code = 0.1 See_Comment [Aut omated message] The Basophils) system which ge nerated this result tra nsmitted reference range : <=1.0. The reference r arelis was not used to int erpret this result as normal/abnormal . [facility] CentralJjskmwvQFOZSXAKYL6194-60-44 09:00:00 Test Item Value Reference Range Interpretation Comments Neutrophils # (test code = Neutrophils 8.4 1.5-8.1 #) [facility] CentralBxxnzqqIWAQCYWSEI3081-81-79 09:00:00 Test Item Value Reference Range Interpretation Comments Lymphocytes # (test code = Lymphocytes 0.4 1.0-5.5 #) [facility] CentralWdyhpoxTOMYWGLVZC7709-91-82 09:00:00 Test Item Value Reference Range Interpretation Comments Monocytes # (test code 0.5 See_Comment [Aut omated message] The = Monocytes #) system which generated this result tra nsmitted reference range : <=0.8. The reference r arelis was not used to int erpret this result as normal/abnormal . [facility] CentralRntdhwiQZIWTPMDLK9490-44-72 09:00:00 Test Item Value Reference Range Interpretation Comments WBC (test code = WBC) 9.3 3.7-10.4 [facility] CentralUrfqaxrIAOSNMSRDV2001-18-96 09:00:00 Test Item Value Reference Range Interpretation Comments RBC (test code = RBC) 3.41 4.20-5.40 [facility] CentralRmjrrspDNMGIEGPTR1169-46-49 09:00:00 Test Item Value Reference Range Interpretation Comments Hgb (test code = Hgb) 9.7 12.0-16.0 [facility] CentralOssppbrJALFNAAIMU9146-04-22 09:00:00 Test Item Value Reference Range Interpretation Comments Hct (test code = Hct) 29.5 36.0-48.0 [facility] CentralUzhvxmzXMSQJGHWQB9714-56-87 09:00:00 Test Item Value Reference Range Interpretation Comments MCV (test code = MCV) 86.4 80.0-98.0 [facility] CentralHtutjhmVXGGTZVEVH4753-36-98 09:00:00 Test Item Value Reference Range Interpretation Comments MCH (test code = MCH) 28.3 pg 27.0-31.0 [facility] CentralJgtwgkpKMQRWYBDUD9984-45-64 09:00:00 Test Item Value Reference Range Interpretation Comments MCHC (test code = MCHC) 32.8 32.0-36.0 [facility] CentralQwoamvuRESLUOHVCG3867-11-98 09:00:00 Test Item Value Reference Range Interpretation Comments RDW (test code = RDW) 14.9 11.5-14.5 [place] 139731-10-19 09:00:00 Test Item Value Reference Range Interpretation Comments Platelet (test code = Platelet) 353 133-450 [place] 139731-10-19 09:00:00 Test Item Value Reference Range Interpretation Comments MPV (test code = MPV) 8.3 7.4-10.4 [facility]2021-10-19 09:00:00 Test Item Value Reference Range Interpretation Comments Glucose Lvl (test code = Glucose Lvl) 173 70-99 [place] 853501-10-19 09:00:00 Test Item Value Reference Range Interpretation Comments BUN (test code = BUN) 8 7-22 [place] 853501-10-19 09:00:00 Test Item Value Reference Range Interpretation Comments Creatinine Lvl (test code = Creatinine 0.55 0.50-1.40 Lvl) [facility]2021-10-19 09:00:00 Test Item Value Reference Range Interpretation Comments Sodium Lvl (test code = Sodium Lvl) 139 135-145 [place] 853501-10-19 09:00:00 Test Item Value Reference Range Interpretation Comments Potassium Lvl (test code = Potassium 4.1 3.5-5.1 Lvl) [facility]2021-10-19 09:00:00 Test Item Value Reference Range Interpretation Comments Chloride Lvl (test code = Chloride Lvl) 109 95-109 [place] 853501-10-19 09:00:00 Test Item Value Reference Range Interpretation Comments CO2 (test code = CO2) 24 24-32 [place] [address]3501-10-19 09:00:00 Test Item Value Reference Range Interpretation Comments AGAP (test code = AGAP) 10.1 10.0-20.0 [place] 853501-10-19 09:00:00 Test Item Value Reference Range Interpretation Comments Calcium Lvl (test code = Calcium Lvl) 8.6 8.5-10.5 [facility]2021-10-19 09:00:00 Test Item Value Reference Range Interpretation Comments eGFR (test code = eGFR) 97 [place] 139731-10-19 09:00:00 Test Item Value Reference Range Interpretation Comments Segs (test code = Segs) 90.2 45.0-75.0 [place] 139731-10-19 09:00:00 Test Item Value Reference Range Interpretation Comments Lymphocytes (test code = Lymphocytes) 4.7 20.0-40.0 [facility] CentralTothjlkLENKRBWGOU8480-67-13 09:00:00 Test Item Value Reference Range Interpretation Comments Monocytes (test code = Monocytes) 5.0 2.0-12.0 [facility] CentralVprrshgGDOLHDCROJ2247-29-25 09:00:00 Test Item Value Reference Range Interpretation Comments Basophils (test code = 0.1 See_Comment [Aut omated message] The Basophils) system which ge nerated this result tra nsmitted reference range : <=1.0. The reference r arelis was not used to int erpret this result as normal/abnormal . [facility] CentralZrjlsybXDOFBZUXIE5813-61-24 09:00:00 Test Item Value Reference Range Interpretation Comments Neutrophils # (test code = Neutrophils 8.4 1.5-8.1 #) [facility] CentralUdsehwhRZYVXWJTUJ8658-53-32 09:00:00 Test Item Value Reference Range Interpretation Comments Lymphocytes # (test code = Lymphocytes 0.4 1.0-5.5 #) [facility] CentralYwotrwxUNJYGQTCWF8863-97-67 09:00:00 Test Item Value Reference Range Interpretation Comments Monocytes # (test code 0.5 See_Comment [Aut omated message] The = Monocytes #) system which generated this result tra nsmitted reference range : <=0.8. The reference r arelis was not used to int erpret this result as normal/abnormal . [facility] CentralCvfwmbnGTOECUSRZQ3511-77-57 09:00:00 Test Item Value Reference Range Interpretation Comments WBC (test code = WBC) 9.3 3.7-10.4 [facility] CentralTmfaiiyOBLPVYJZUI0625-32-28 09:00:00 Test Item Value Reference Range Interpretation Comments RBC (test code = RBC) 3.41 4.20-5.40 [facility] CentralUxtwnkgXZFBVBHXVK6673-01-28 09:00:00 Test Item Value Reference Range Interpretation Comments Hgb (test code = Hgb) 9.7 12.0-16.0 [facility] CentralGxhhktjTAXPFOVBAV6918-50-50 09:00:00 Test Item Value Reference Range Interpretation Comments Hct (test code = Hct) 29.5 36.0-48.0 [facility] CentralQdwtqvnOXPEEMHKOD8640-46-51 09:00:00 Test Item Value Reference Range Interpretation Comments MCV (test code = MCV) 86.4 80.0-98.0 [place] 139731-10-19 09:00:00 Test Item Value Reference Range Interpretation Comments MCH (test code = MCH) 28.3 pg 27.0-31.0 [place] 139731-10-19 09:00:00 Test Item Value Reference Range Interpretation Comments MCHC (test code = MCHC) 32.8 32.0-36.0 [place] 139731-10-19 09:00:00 Test Item Value Reference Range Interpretation Comments RDW (test code = RDW) 14.9 11.5-14.5 [place] 139731-10-19 09:00:00 Test Item Value Reference Range Interpretation Comments Platelet (test code = Platelet) 353 406-450 [facility] CentralCwjzbwmPDPNTMCEOS0375-91-19 09:00:00 Test Item Value Reference Range Interpretation Comments MPV (test code = MPV) 8.3 7.4-10.4 [facility]2021-10-19 09:00:00 Test Item Value Reference Range Interpretation Comments Glucose Lvl (test code = Glucose Lvl) 173 70-99 [facility]2021-10-19 09:00:00 Test Item Value Reference Range Interpretation Comments BUN (test code = BUN) 8 7-22 [place] 853501-10-19 09:00:00 Test Item Value Reference Range Interpretation Comments Creatinine Lvl (test code = Creatinine 0.55 0.50-1.40 Lvl) [place] 853501-10-19 09:00:00 Test Item Value Reference Range Interpretation Comments Sodium Lvl (test code = Sodium Lvl) 139 135-145 [facility]2021-10-19 09:00:00 Test Item Value Reference Range Interpretation Comments Potassium Lvl (test code = Potassium 4.1 3.5-5.1 Lvl) [facility]2021-10-19 09:00:00 Test Item Value Reference Range Interpretation Comments Chloride Lvl (test code = Chloride Lvl) 109 95-109 [place]3501-10-19 09:00:00 Test Item Value Reference Range Interpretation Comments CO2 (test code = CO2) 24 24-32 [place] [address]3501-10-19 09:00:00 Test Item Value Reference Range Interpretation Comments AGAP (test code = AGAP) 10.1 10.0-20.0 [place] 853501-10-19 09:00:00 Test Item Value Reference Range Interpretation Comments Calcium Lvl (test code = Calcium Lvl) 8.6 8.5-10.5 [place] 853501-10-19 09:00:00 Test Item Value Reference Range Interpretation Comments eGFR (test code = eGFR) 97 [place] 139731-10-19 09:00:00 Test Item Value Reference Range Interpretation Comments Segs (test code = Segs) 90.2 45.0-75.0 [place] 139731-10-19 09:00:00 Test Item Value Reference Range Interpretation Comments Lymphocytes (test code = Lymphocytes) 4.7 20.0-40.0 [place] 139731-10-19 09:00:00 Test Item Value Reference Range Interpretation Comments Monocytes (test code = Monocytes) 5.0 2.0-12.0 [place] 139731-10-19 09:00:00 Test Item Value Reference Range Interpretation Comments Basophils (test code = 0.1 See_Comment [Aut omated message] The Basophils) system which ge nerated this result tra nsmitted reference range : <=1.0. The reference r arelis was not used to int erpret this result as normal/abnormal . [place] 139731-10-19 09:00:00 Test Item Value Reference Range Interpretation Comments Neutrophils # (test code = Neutrophils 8.4 1.5-8.1 #) [place] 139731-10-19 09:00:00 Test Item Value Reference Range Interpretation Comments Lymphocytes # (test code = Lymphocytes 0.4 1.0-5.5 #) [place] 139731-10-19 09:00:00 Test Item Value Reference Range Interpretation Comments Monocytes # (test code 0.5 See_Comment [Aut omated message] The = Monocytes #) system which generated this result tra nsmitted reference range : <=0.8. The reference r arelis was not used to int erpret this result as normal/abnormal . [place] 139731-10-19 09:00:00 Test Item Value Reference Range Interpretation Comments WBC (test code = WBC) 9.3 3.7-10.4 [facility]ywugpWBUXBQRBZW0163-48-18 09:00:00 Test Item Value Reference Range Interpretation Comments RBC (test code = RBC) 3.41 4.20-5.40 [facility] CentralMwunxfrEGCTXWORVQ3788-93-81 09:00:00 Test Item Value Reference Range Interpretation Comments Hgb (test code = Hgb) 9.7 12.0-16.0 [facility] CentralQtmldvfYQQSZSMVXF1453-56-20 09:00:00 Test Item Value Reference Range Interpretation Comments Hct (test code = Hct) 29.5 36.0-48.0 [facility] CentralPasmcalEJFANKKMPH6274-17-13 09:00:00 Test Item Value Reference Range Interpretation Comments MCV (test code = MCV) 86.4 80.0-98.0 [facility] CentralWpeioajGJZIOKVSVR0235-84-42 09:00:00 Test Item Value Reference Range Interpretation Comments MCH (test code = MCH) 28.3 pg 27.0-31.0 [facility] CentralBpqnhchCXZVSIKFEC6183-46-33 09:00:00 Test Item Value Reference Range Interpretation Comments MCHC (test code = MCHC) 32.8 32.0-36.0 [facility] CentralVvyrciqLGENODRNHY5487-13-92 09:00:00 Test Item Value Reference Range Interpretation Comments RDW (test code = RDW) 14.9 11.5-14.5 [facility] CentralXjeeswgEMCDBHFMTJ3752-94-96 09:00:00 Test Item Value Reference Range Interpretation Comments Platelet (test code = Platelet) 353 133-450 [facility] CentralSxzsomrWYWCXWYVOY0370-00-89 09:00:00 Test Item Value Reference Range Interpretation Comments MPV (test code = MPV) 8.3 7.4-10.4 [facility]2021-10-19 09:00:00 Test Item Value Reference Range Interpretation Comments Glucose Lvl (test code = Glucose Lvl) 173 70-99 [facility]2021-10-19 09:00:00 Test Item Value Reference Range Interpretation Comments BUN (test code = BUN) 8 7-22 [facility]2021-10-19 09:00:00 Test Item Value Reference Range Interpretation Comments Creatinine Lvl (test code = Creatinine 0.55 0.50-1.40 Lvl) [facility]2021-10-19 09:00:00 Test Item Value Reference Range Interpretation Comments Sodium Lvl (test code = Sodium Lvl) 139 135-145 [place] 853501-10-19 09:00:00 Test Item Value Reference Range Interpretation Comments Potassium Lvl (test code = Potassium 4.1 3.5-5.1 Lvl) [place] 853501-10-19 09:00:00 Test Item Value Reference Range Interpretation Comments Chloride Lvl (test code = Chloride Lvl) 109 95-109 [place] 853501-10-19 09:00:00 Test Item Value Reference Range Interpretation Comments CO2 (test code = CO2) 24 24-32 [place] 853501-10-19 09:00:00 Test Item Value Reference Range Interpretation Comments AGAP (test code = AGAP) 10.1 10.0-20.0 [place] 853501-10-19 09:00:00 Test Item Value Reference Range Interpretation Comments Calcium Lvl (test code = Calcium Lvl) 8.6 8.5-10.5 [place] 853501-10-19 09:00:00 Test Item Value Reference Range Interpretation Comments eGFR (test code = eGFR) 97 [facility] CentralDnyuzdnRRGTSZLPLY0229-97-32 09:00:00 Test Item Value Reference Range Interpretation Comments Segs (test code = Segs) 90.2 45.0-75.0 [place] 139731-10-19 09:00:00 Test Item Value Reference Range Interpretation Comments Lymphocytes (test code = Lymphocytes) 4.7 20.0-40.0 [place] 139731-10-19 09:00:00 Test Item Value Reference Range Interpretation Comments Monocytes (test code = Monocytes) 5.0 2.0-12.0 [place] 38818-10-19 09:00:00 Test Item Value Reference Range Interpretation Comments Basophils (test code = 0.1 See_Comment [Aut omated message] The Basophils) system which ge nerated this result tra nsmitted reference range : <=1.0. The reference r arelis was not used to int erpret this result as normal/abnormal . [place] 853501-10-19 09:00:00 Test Item Value Reference Range Interpretation Comments Glucose Lvl (test code = Glucose Lvl) 173 70-99 [place] 139731-10-19 09:00:00 Test Item Value Reference Range Interpretation Comments Neutrophils # (test code = Neutrophils 8.4 1.5-8.1 #) [place] 853501-10-19 09:00:00 Test Item Value Reference Range Interpretation Comments BUN (test code = BUN) 8 7-22 [place] 853501-10-19 09:00:00 Test Item Value Reference Range Interpretation Comments Creatinine Lvl (test code = Creatinine 0.55 0.50-1.40 Lvl) [place] 853501-10-19 09:00:00 Test Item Value Reference Range Interpretation Comments Sodium Lvl (test code = Sodium Lvl) 139 135-145 [place] 853501-10-19 09:00:00 Test Item Value Reference Range Interpretation Comments Potassium Lvl (test code = Potassium 4.1 3.5-5.1 Lvl) [place] 853501-10-19 09:00:00 Test Item Value Reference Range Interpretation Comments Chloride Lvl (test code = Chloride Lvl) 109 95-109 [place] 853501-10-19 09:00:00 Test Item Value Reference Range Interpretation Comments CO2 (test code = CO2) 24 24-32 [facility]2021-10-19 09:00:00 Test Item Value Reference Range Interpretation Comments AGAP (test code = AGAP) 10.1 10.0-20.0 [facility]2021-10-19 09:00:00 Test Item Value Reference Range Interpretation Comments Calcium Lvl (test code = Calcium Lvl) 8.6 8.5-10.5 [facility]2021-10-19 09:00:00 Test Item Value Reference Range Interpretation Comments eGFR (test code = eGFR) 97 [place] 139731-10-19 09:00:00 Test Item Value Reference Range Interpretation Comments Segs (test code = Segs) 90.2 45.0-75.0 [place] 139731-10-19 09:00:00 Test Item Value Reference Range Interpretation Comments Lymphocytes # (test code = Lymphocytes 0.4 1.0-5.5 #) [place] 139731-10-19 09:00:00 Test Item Value Reference Range Interpretation Comments Lymphocytes (test code = Lymphocytes) 4.7 20.0-40.0 [facility] CentralCwlnztqYSJIQEBFLX9913-84-93 09:00:00 Test Item Value Reference Range Interpretation Comments Monocytes (test code = Monocytes) 5.0 2.0-12.0 [facility] CentralIllyvxtTTHBVCVOVA3218-67-24 09:00:00 Test Item Value Reference Range Interpretation Comments Basophils (test code = 0.1 See_Comment [Aut omated message] The Basophils) system which ge nerated this result tra nsmitted reference range : <=1.0. The reference r arelis was not used to int erpret this result as normal/abnormal . [facility] CentralTyzyoolOSPLKQBWMJ4558-67-81 09:00:00 Test Item Value Reference Range Interpretation Comments Neutrophils # (test code = Neutrophils 8.4 1.5-8.1 #) [facility] CentralMamkcrbMOAWFABHYP8304-63-84 09:00:00 Test Item Value Reference Range Interpretation Comments Lymphocytes # (test code = Lymphocytes 0.4 1.0-5.5 #) [facility] CentralMbweynkSYZHJCZXVB3601-16-18 09:00:00 Test Item Value Reference Range Interpretation Comments Monocytes # (test code 0.5 See_Comment [Aut omated message] The = Monocytes #) system which generated this result tra nsmitted reference range : <=0.8. The reference r arelis was not used to int erpret this result as normal/abnormal . [facility] CentralTfkurdxCPUEKPPZZT7208-62-82 09:00:00 Test Item Value Reference Range Interpretation Comments WBC (test code = WBC) 9.3 3.7-10.4 [facility] CentralFrtosrzBPOXKPFXFU6367-41-76 09:00:00 Test Item Value Reference Range Interpretation Comments RBC (test code = RBC) 3.41 4.20-5.40 [facility] CentralFuuwirgHEEQFNKUVS4748-81-58 09:00:00 Test Item Value Reference Range Interpretation Comments Hgb (test code = Hgb) 9.7 12.0-16.0 [place] 139731-10-19 09:00:00 Test Item Value Reference Range Interpretation Comments Hct (test code = Hct) 29.5 36.0-48.0 [facility] CentralDnpouzePDZEJPKSFL9467-69-90 09:00:00 Test Item Value Reference Range Interpretation Comments Monocytes # (test code 0.5 See_Comment [Aut omated message] The = Monocytes #) system which generated this result tra nsmitted reference range : <=0.8. The reference r arelis was not used to int erpret this result as normal/abnormal . [facility] CentralBgpkvrrIZGTNWZSCJ1163-21-91 09:00:00 Test Item Value Reference Range Interpretation Comments MCV (test code = MCV) 86.4 80.0-98.0 [facility] CentralQltidavMHQJQCBBML1055-47-19 09:00:00 Test Item Value Reference Range Interpretation Comments MCH (test code = MCH) 28.3 pg 27.0-31.0 [facility] CentralQeblmirXLEVTKJOEF8236-31-54 09:00:00 Test Item Value Reference Range Interpretation Comments MCHC (test code = MCHC) 32.8 32.0-36.0 [facility] CentralCfpqcreAJZKJQZSJY3384-16-61 09:00:00 Test Item Value Reference Range Interpretation Comments RDW (test code = RDW) 14.9 11.5-14.5 [facility] CentralEqpfewcUGXIPOHQPE8624-24-49 09:00:00 Test Item Value Reference Range Interpretation Comments Platelet (test code = Platelet) 353 133-450 [facility] CentralZpmwdxrHXLRKBVYKI2105-95-67 09:00:00 Test Item Value Reference Range Interpretation Comments MPV (test code = MPV) 8.3 7.4-10.4 [facility] CentralHsvcfpjEAAPMPAZGH8582-52-96 09:00:00 Test Item Value Reference Range Interpretation Comments WBC (test code = WBC) 9.3 3.7-10.4 [facility] CentralShxekyuWMEUUSQEVT1377-64-18 09:00:00 Test Item Value Reference Range Interpretation Comments RBC (test code = RBC) 3.41 4.20-5.40 [facility] CentralIqbqsbmNJQOYBEBPQ0811-34-82 09:00:00 Test Item Value Reference Range Interpretation Comments Hgb (test code = Hgb) 9.7 12.0-16.0 [facility] CentralBiwhdvbFSMEWHMTKW6222-43-05 09:00:00 Test Item Value Reference Range Interpretation Comments Hct (test code = Hct) 29.5 36.0-48.0 [facility] CentralLaxpasmLXDHLTVJOM9383-31-00 09:00:00 Test Item Value Reference Range Interpretation Comments MCV (test code = MCV) 86.4 80.0-98.0 [place] 139731-10-19 09:00:00 Test Item Value Reference Range Interpretation Comments MCH (test code = MCH) 28.3 pg 27.0-31.0 [facility] CentralSigiaglQJNZNTDNQN0347-29-42 09:00:00 Test Item Value Reference Range Interpretation Comments MCHC (test code = MCHC) 32.8 32.0-36.0 [place] 139731-10-19 09:00:00 Test Item Value Reference Range Interpretation Comments RDW (test code = RDW) 14.9 11.5-14.5 [place] 139731-10-19 09:00:00 Test Item Value Reference Range Interpretation Comments Platelet (test code = Platelet) 353 133-450 [facility] CentralDeiuivwWIKAYHEFNT0744-37-18 09:00:00 Test Item Value Reference Range Interpretation Comments MPV (test code = MPV) 8.3 7.4-10.4 [facility]2021-10-19 09:00:00 Test Item Value Reference Range Interpretation Comments Glucose Lvl (test code = Glucose Lvl) 173 70-99 [facility]2021-10-19 09:00:00 Test Item Value Reference Range Interpretation Comments BUN (test code = BUN) 8 7-22 [facility]2021-10-19 09:00:00 Test Item Value Reference Range Interpretation Comments Creatinine Lvl (test code = Creatinine 0.55 0.50-1.40 Lvl) [facility]2021-10-19 09:00:00 Test Item Value Reference Range Interpretation Comments Sodium Lvl (test code = Sodium Lvl) 139 135-145 [facility]2021-10-19 09:00:00 Test Item Value Reference Range Interpretation Comments Potassium Lvl (test code = Potassium 4.1 3.5-5.1 Lvl) [facility]2021-10-19 09:00:00 Test Item Value Reference Range Interpretation Comments Chloride Lvl (test code = Chloride Lvl) 109 95-109 [place] 853501-10-19 09:00:00 Test Item Value Reference Range Interpretation Comments CO2 (test code = CO2) 24 24-32 [facility]2021-10-19 09:00:00 Test Item Value Reference Range Interpretation Comments AGAP (test code = AGAP) 10.1 10.0-20.0 [facility]2021-10-19 09:00:00 Test Item Value Reference Range Interpretation Comments Calcium Lvl (test code = Calcium Lvl) 8.6 8.5-10.5 [place] 853501-10-19 09:00:00 Test Item Value Reference Range Interpretation Comments eGFR (test code = eGFR) 97 [facility] CentralUeazshrAFLGORTPQV4195-86-97 09:00:00 Test Item Value Reference Range Interpretation Comments Segs (test code = Segs) 90.2 45.0-75.0 [place] 139731-10-19 09:00:00 Test Item Value Reference Range Interpretation Comments Lymphocytes (test code = Lymphocytes) 4.7 20.0-40.0 [place] 139731-10-19 09:00:00 Test Item Value Reference Range Interpretation Comments Monocytes (test code = Monocytes) 5.0 2.0-12.0 [place] 139731-10-19 09:00:00 Test Item Value Reference Range Interpretation Comments Basophils (test code = 0.1 See_Comment [Aut omated message] The Basophils) system which ge nerated this result tra nsmitted reference range : <=1.0. The reference r arelis was not used to int erpret this result as normal/abnormal . [facility] CentralEsixzrpHSIGWVRISU3788-08-21 09:00:00 Test Item Value Reference Range Interpretation Comments Neutrophils # (test code = Neutrophils 8.4 1.5-8.1 #) [place] 139731-10-19 09:00:00 Test Item Value Reference Range Interpretation Comments Lymphocytes # (test code = Lymphocytes 0.4 1.0-5.5 #) [place] 139731-10-19 09:00:00 Test Item Value Reference Range Interpretation Comments Monocytes # (test code 0.5 See_Comment [Aut omated message] The = Monocytes #) system which generated this result tra nsmitted reference range : <=0.8. The reference r arelis was not used to int erpret this result as normal/abnormal . [place] 139731-10-19 09:00:00 Test Item Value Reference Range Interpretation Comments WBC (test code = WBC) 9.3 3.7-10.4 [place] 139731-10-19 09:00:00 Test Item Value Reference Range Interpretation Comments RBC (test code = RBC) 3.41 4.20-5.40 [facility] CentralGycnlttCCKRJNCLZJ5684-00-70 09:00:00 Test Item Value Reference Range Interpretation Comments Hgb (test code = Hgb) 9.7 12.0-16.0 [place] 139731-10-19 09:00:00 Test Item Value Reference Range Interpretation Comments Hct (test code = Hct) 29.5 36.0-48.0 [place] 139731-10-19 09:00:00 Test Item Value Reference Range Interpretation Comments MCV (test code = MCV) 86.4 80.0-98.0 [place] 139731-10-19 09:00:00 Test Item Value Reference Range Interpretation Comments MCH (test code = MCH) 28.3 pg 27.0-31.0 [place] 139731-10-19 09:00:00 Test Item Value Reference Range Interpretation Comments MCHC (test code = MCHC) 32.8 32.0-36.0 [place] 139731-10-19 09:00:00 Test Item Value Reference Range Interpretation Comments RDW (test code = RDW) 14.9 11.5-14.5 [facility] CentralZrqndfiQFHQRXUMYM7549-52-35 09:00:00 Test Item Value Reference Range Interpretation Comments Platelet (test code = Platelet) 353 133-450 [facility] CentralMrkhpvhHKJREBVDIB7743-65-80 09:00:00 Test Item Value Reference Range Interpretation Comments MPV (test code = MPV) 8.3 7.4-10.4 [facility]2021-10-19 09:00:00 Test Item Value Reference Range Interpretation Comments Glucose Lvl (test code = Glucose Lvl) 173 70-99 [facility]2021-10-19 09:00:00 Test Item Value Reference Range Interpretation Comments BUN (test code = BUN) 8 7-22 [facility]2021-10-19 09:00:00 Test Item Value Reference Range Interpretation Comments Creatinine Lvl (test code = Creatinine 0.55 0.50-1.40 Lvl) [facility]2021-10-19 09:00:00 Test Item Value Reference Range Interpretation Comments Sodium Lvl (test code = Sodium Lvl) 139 135-145 [place] 853501-10-19 09:00:00 Test Item Value Reference Range Interpretation Comments Potassium Lvl (test code = Potassium 4.1 3.5-5.1 Lvl) [place] 853501-10-19 09:00:00 Test Item Value Reference Range Interpretation Comments Chloride Lvl (test code = Chloride Lvl) 109 95-109 [place] 853501-10-19 09:00:00 Test Item Value Reference Range Interpretation Comments CO2 (test code = CO2) 24 24-32 [place] 853501-10-19 09:00:00 Test Item Value Reference Range Interpretation Comments AGAP (test code = AGAP) 10.1 10.0-20.0 [place] 853501-10-19 09:00:00 Test Item Value Reference Range Interpretation Comments Calcium Lvl (test code = Calcium Lvl) 8.6 8.5-10.5 [facility]2021-10-19 09:00:00 Test Item Value Reference Range Interpretation Comments eGFR (test code = eGFR) 97 [facility] CentralWlsqjhwARQZLERVBI7427-94-55 09:00:00 Test Item Value Reference Range Interpretation Comments Segs (test code = Segs) 90.2 45.0-75.0 [facility] CentralIibxsxhSFAWNQDGTS8787-13-17 09:00:00 Test Item Value Reference Range Interpretation Comments Lymphocytes (test code = Lymphocytes) 4.7 20.0-40.0 [facility] CentralOtmnyzwELUZHZSIKD1917-45-60 09:00:00 Test Item Value Reference Range Interpretation Comments Monocytes (test code = Monocytes) 5.0 2.0-12.0 [place] 139731-10-19 09:00:00 Test Item Value Reference Range Interpretation Comments Basophils (test code = 0.1 See_Comment [Aut omated message] The Basophils) system which ge nerated this result tra nsmitted reference range : <=1.0. The reference r arelis was not used to int erpret this result as normal/abnormal . [facility] CentralJiquyweLYYIRPXMNL1358-50-42 09:00:00 Test Item Value Reference Range Interpretation Comments Neutrophils # (test code = Neutrophils 8.4 1.5-8.1 #) [place] 139731-10-19 09:00:00 Test Item Value Reference Range Interpretation Comments Lymphocytes # (test code = Lymphocytes 0.4 1.0-5.5 #) [facility] CentralZgegudeUFTBTPSAGL5336-57-63 09:00:00 Test Item Value Reference Range Interpretation Comments Monocytes # (test code 0.5 See_Comment [Aut omated message] The = Monocytes #) system which generated this result tra nsmitted reference range : <=0.8. The reference r arelis was not used to int erpret this result as normal/abnormal . [facility] CentralVwcymxfCTVYYOIKZA5329-92-89 09:00:00 Test Item Value Reference Range Interpretation Comments WBC (test code = WBC) 9.3 3.7-10.4 [facility] CentralZowhjqxMAWPEXMINB3166-05-17 09:00:00 Test Item Value Reference Range Interpretation Comments RBC (test code = RBC) 3.41 4.20-5.40 [facility] CentralEyeprpyEXWAVOIHNF8108-12-74 09:00:00 Test Item Value Reference Range Interpretation Comments Hgb (test code = Hgb) 9.7 12.0-16.0 [facility] CentralRxmggpdRSZLYLNVCN3712-70-13 09:00:00 Test Item Value Reference Range Interpretation Comments Hct (test code = Hct) 29.5 36.0-48.0 [facility] CentralEsjnuymSKWWGHSJSW2882-33-19 09:00:00 Test Item Value Reference Range Interpretation Comments MCV (test code = MCV) 86.4 80.0-98.0 [facility] CentralZlftudsOHMAOBVKKX8699-73-38 09:00:00 Test Item Value Reference Range Interpretation Comments MCH (test code = MCH) 28.3 pg 27.0-31.0 [facility] CentralYsdmggqZSFFDUEBAA3844-51-79 09:00:00 Test Item Value Reference Range Interpretation Comments MCHC (test code = MCHC) 32.8 32.0-36.0 [facility] CentralNjckgvkYDGFNIJSHB6628-40-82 09:00:00 Test Item Value Reference Range Interpretation Comments RDW (test code = RDW) 14.9 11.5-14.5 [facility] CentralGkbugqmGORWZCZYZY3357-14-29 09:00:00 Test Item Value Reference Range Interpretation Comments Platelet (test code = Platelet) 353 133-450 [facility] CentralPcoaizuDTCVJRUDVB5825-25-46 09:00:00 Test Item Value Reference Range Interpretation Comments MPV (test code = MPV) 8.3 7.4-10.4 [place] 853501-10-19 09:00:00 Test Item Value Reference Range Interpretation Comments Glucose Lvl (test code = Glucose Lvl) 173 70-99 [place] 853501-10-19 09:00:00 Test Item Value Reference Range Interpretation Comments BUN (test code = BUN) 8 7-22 [place] 853501-10-19 09:00:00 Test Item Value Reference Range Interpretation Comments Creatinine Lvl (test code = Creatinine 0.55 0.50-1.40 Lvl) [place] 853501-10-19 09:00:00 Test Item Value Reference Range Interpretation Comments Sodium Lvl (test code = Sodium Lvl) 139 135-145 [facility]2021-10-19 09:00:00 Test Item Value Reference Range Interpretation Comments Potassium Lvl (test code = Potassium 4.1 3.5-5.1 Lvl) [place] 853501-10-19 09:00:00 Test Item Value Reference Range Interpretation Comments Chloride Lvl (test code = Chloride Lvl) 109 95-109 [place] 853501-10-19 09:00:00 Test Item Value Reference Range Interpretation Comments CO2 (test code = CO2) 24 24-32 [facility]2021-10-19 09:00:00 Test Item Value Reference Range Interpretation Comments AGAP (test code = AGAP) 10.1 10.0-20.0 [facility]2021-10-19 09:00:00 Test Item Value Reference Range Interpretation Comments Calcium Lvl (test code = Calcium Lvl) 8.6 8.5-10.5 [facility]2021-10-19 09:00:00 Test Item Value Reference Range Interpretation Comments eGFR (test code = eGFR) 97 [place] 139731-10-19 09:00:00 Test Item Value Reference Range Interpretation Comments Segs (test code = Segs) 90.2 45.0-75.0 [place] 139731-10-19 09:00:00 Test Item Value Reference Range Interpretation Comments Lymphocytes (test code = Lymphocytes) 4.7 20.0-40.0 [place] 139731-10-19 09:00:00 Test Item Value Reference Range Interpretation Comments Monocytes (test code = Monocytes) 5.0 2.0-12.0 [facility] CentralDtszerxFYMNIZEHNS0711-45-38 09:00:00 Test Item Value Reference Range Interpretation Comments Basophils (test code = 0.1 See_Comment [Aut omated message] The Basophils) system which ge nerated this result tra nsmitted reference range : <=1.0. The reference r arelis was not used to int erpret this result as normal/abnormal . [facility] CentralNlqluzvFJNOEXEDFT4183-17-89 09:00:00 Test Item Value Reference Range Interpretation Comments Neutrophils # (test code = Neutrophils 8.4 1.5-8.1 #) [facility] CentralCcihmwqLCHFDIFCQL2401-81-65 09:00:00 Test Item Value Reference Range Interpretation Comments Lymphocytes # (test code = Lymphocytes 0.4 1.0-5.5 #) [facility] CentralNbqsvquPIULJDYBBA3374-57-49 09:00:00 Test Item Value Reference Range Interpretation Comments Monocytes # (test code 0.5 See_Comment [Aut omated message] The = Monocytes #) system which generated this result tra nsmitted reference range : <=0.8. The reference r arelis was not used to int erpret this result as normal/abnormal . [facility] CentralDpfvljzMGWLQOCLFS5650-21-86 09:00:00 Test Item Value Reference Range Interpretation Comments WBC (test code = WBC) 9.3 3.7-10.4 [facility] CentralRzynhgjURRUQPNLQZ8497-19-72 09:00:00 Test Item Value Reference Range Interpretation Comments RBC (test code = RBC) 3.41 4.20-5.40 [facility] CentralBksqjcvHEBQTWNAGW5742-28-99 09:00:00 Test Item Value Reference Range Interpretation Comments Hgb (test code = Hgb) 9.7 12.0-16.0 [place] 139731-10-19 09:00:00 Test Item Value Reference Range Interpretation Comments Hct (test code = Hct) 29.5 36.0-48.0 [place] 139731-10-19 09:00:00 Test Item Value Reference Range Interpretation Comments MCV (test code = MCV) 86.4 80.0-98.0 [facility]KmyujyjRXNZATLEGW4038-98-18 09:00:00 Test Item Value Reference Range Interpretation Comments MCH (test code = MCH) 28.3 pg 27.0-31.0 [place] 139731-10-19 09:00:00 Test Item Value Reference Range Interpretation Comments MCHC (test code = MCHC) 32.8 32.0-36.0 [place] 139731-10-19 09:00:00 Test Item Value Reference Range Interpretation Comments RDW (test code = RDW) 14.9 11.5-14.5 [place] 139731-10-19 09:00:00 Test Item Value Reference Range Interpretation Comments Platelet (test code = Platelet) 353 133-450 [facility] CentralPbxqckuJYQHFLRQDK4992-67-14 09:00:00 Test Item Value Reference Range Interpretation Comments MPV (test code = MPV) 8.3 7.4-10.4 [facility]2021-10-19 09:00:00 Test Item Value Reference Range Interpretation Comments Glucose Lvl (test code = Glucose Lvl) 173 70-99 [facility]2021-10-19 09:00:00 Test Item Value Reference Range Interpretation Comments BUN (test code = BUN) 8 7-22 [facility]2021-10-19 09:00:00 Test Item Value Reference Range Interpretation Comments Creatinine Lvl (test code = Creatinine 0.55 0.50-1.40 Lvl) [facility]2021-10-19 09:00:00 Test Item Value Reference Range Interpretation Comments Sodium Lvl (test code = Sodium Lvl) 139 135-145 [facility]2021-10-19 09:00:00 Test Item Value Reference Range Interpretation Comments Potassium Lvl (test code = Potassium 4.1 3.5-5.1 Lvl) [facility]2021-10-19 09:00:00 Test Item Value Reference Range Interpretation Comments Chloride Lvl (test code = Chloride Lvl) 109 95-109 [facility]2021-10-19 09:00:00 Test Item Value Reference Range Interpretation Comments CO2 (test code = CO2) 24 24-32 [facility]2021-10-19 09:00:00 Test Item Value Reference Range Interpretation Comments AGAP (test code = AGAP) 10.1 10.0-20.0 [place] 853501-10-19 09:00:00 Test Item Value Reference Range Interpretation Comments Calcium Lvl (test code = Calcium Lvl) 8.6 8.5-10.5 [place] 853501-10-19 09:00:00 Test Item Value Reference Range Interpretation Comments eGFR (test code = eGFR) 97 [place] 139731-10-19 09:00:00 Test Item Value Reference Range Interpretation Comments Segs (test code = Segs) 90.2 45.0-75.0 [place] 139731-10-19 09:00:00 Test Item Value Reference Range Interpretation Comments Lymphocytes (test code = Lymphocytes) 4.7 20.0-40.0 [place] 139731-10-19 09:00:00 Test Item Value Reference Range Interpretation Comments Monocytes (test code = Monocytes) 5.0 2.0-12.0 [place] 139731-10-19 09:00:00 Test Item Value Reference Range Interpretation Comments Basophils (test code = 0.1 See_Comment [Aut omated message] The Basophils) system which ge nerated this result tra nsmitted reference range : <=1.0. The reference r arelis was not used to int erpret this result as normal/abnormal . [facility] CentralRjasmhkOJUJNFXGAS0850-56-71 09:00:00 Test Item Value Reference Range Interpretation Comments Neutrophils # (test code = Neutrophils 8.4 1.5-8.1 #) [facility] CentralKxzoqngWAUQVSLGDF9333-31-07 09:00:00 Test Item Value Reference Range Interpretation Comments Lymphocytes # (test code = Lymphocytes 0.4 1.0-5.5 #) [place] 139731-10-19 09:00:00 Test Item Value Reference Range Interpretation Comments Monocytes # (test code 0.5 See_Comment [Aut omated message] The = Monocytes #) system which generated this result tra nsmitted reference range : <=0.8. The reference r arelis was not used to int erpret this result as normal/abnormal . [facility] CentralOygcxwcKXJDFUMSGW7838-51-35 09:00:00 Test Item Value Reference Range Interpretation Comments WBC (test code = WBC) 9.3 3.7-10.4 [place] 139731-10-19 09:00:00 Test Item Value Reference Range Interpretation Comments RBC (test code = RBC) 3.41 4.20-5.40 [place] 139731-10-19 09:00:00 Test Item Value Reference Range Interpretation Comments Hgb (test code = Hgb) 9.7 12.0-16.0 [place] [address]-10-19 09:00:00 Test Item Value Reference Range Interpretation Comments Hct (test code = Hct) 29.5 36.0-48.0 [place] 139731-10-19 09:00:00 Test Item Value Reference Range Interpretation Comments MCV (test code = MCV) 86.4 80.0-98.0 [place] 139731-10-19 09:00:00 Test Item Value Reference Range Interpretation Comments MCH (test code = MCH) 28.3 pg 27.0-31.0 [place] 139731-10-19 09:00:00 Test Item Value Reference Range Interpretation Comments MCHC (test code = MCHC) 32.8 32.0-36.0 [place] 139731-10-19 09:00:00 Test Item Value Reference Range Interpretation Comments RDW (test code = RDW) 14.9 11.5-14.5 [place] [address]-10-19 09:00:00 Test Item Value Reference Range Interpretation Comments Platelet (test code = Platelet) 353 133-450 [facility] CentralNrzxrviZPFMWKUWIY3743-36-76 09:00:00 Test Item Value Reference Range Interpretation Comments MPV (test code = MPV) 8.3 7.4-10.4 [facility]2021-10-19 09:00:00 Test Item Value Reference Range Interpretation Comments Glucose Lvl (test code = Glucose Lvl) 173 70-99 [facility]2021-10-19 09:00:00 Test Item Value Reference Range Interpretation Comments BUN (test code = BUN) 8 7-22 [facility]2021-10-19 09:00:00 Test Item Value Reference Range Interpretation Comments Creatinine Lvl (test code = Creatinine 0.55 0.50-1.40 Lvl) [facility]2021-10-19 09:00:00 Test Item Value Reference Range Interpretation Comments Sodium Lvl (test code = Sodium Lvl) 139 135-145 [place] 853501-10-19 09:00:00 Test Item Value Reference Range Interpretation Comments Potassium Lvl (test code = Potassium 4.1 3.5-5.1 Lvl) [place] 853501-10-19 09:00:00 Test Item Value Reference Range Interpretation Comments Chloride Lvl (test code = Chloride Lvl) 109 95-109 [place] 853501-10-19 09:00:00 Test Item Value Reference Range Interpretation Comments CO2 (test code = CO2) 24 24-32 [place] 853501-10-19 09:00:00 Test Item Value Reference Range Interpretation Comments AGAP (test code = AGAP) 10.1 10.0-20.0 [place] 853501-10-19 09:00:00 Test Item Value Reference Range Interpretation Comments Calcium Lvl (test code = Calcium Lvl) 8.6 8.5-10.5 [place] 853501-10-19 09:00:00 Test Item Value Reference Range Interpretation Comments eGFR (test code = eGFR) 97 [place] 139731-10-19 09:00:00 Test Item Value Reference Range Interpretation Comments Segs (test code = Segs) 90.2 45.0-75.0 [place] 139731-10-19 09:00:00 Test Item Value Reference Range Interpretation Comments Lymphocytes (test code = Lymphocytes) 4.7 20.0-40.0 [place] 139731-10-19 09:00:00 Test Item Value Reference Range Interpretation Comments Monocytes (test code = Monocytes) 5.0 2.0-12.0 [place] 139731-10-19 09:00:00 Test Item Value Reference Range Interpretation Comments Basophils (test code = 0.1 See_Comment [Aut omated message] The Basophils) system which ge nerated this result tra nsmitted reference range : <=1.0. The reference r arelis was not used to int erpret this result as normal/abnormal . [facility] CentralTmskwcgNVRBLLDCVX3621-67-21 09:00:00 Test Item Value Reference Range Interpretation Comments Neutrophils # (test code = Neutrophils 8.4 1.5-8.1 #) [place] 139731-10-19 09:00:00 Test Item Value Reference Range Interpretation Comments Lymphocytes # (test code = Lymphocytes 0.4 1.0-5.5 #) [facility] CentralXbiodrgDXJUYSWYMU6013-23-23 09:00:00 Test Item Value Reference Range Interpretation Comments Monocytes # (test code 0.5 See_Comment [Aut omated message] The = Monocytes #) system which generated this result tra nsmitted reference range : <=0.8. The reference r arelis was not used to int erpret this result as normal/abnormal . [facility] CentralUpbzfhyPQOEZCVLWS0388-97-57 09:00:00 Test Item Value Reference Range Interpretation Comments WBC (test code = WBC) 9.3 3.7-10.4 [facility] CentralAzocukrPYRXMAEQXB8572-86-55 09:00:00 Test Item Value Reference Range Interpretation Comments RBC (test code = RBC) 3.41 4.20-5.40 [facility] CentralKdekkaqUJKJGFVSWK2550-08-62 09:00:00 Test Item Value Reference Range Interpretation Comments Hgb (test code = Hgb) 9.7 12.0-16.0 [facility] CentralSvuwhpqPPYLJGTDMW9218-85-37 09:00:00 Test Item Value Reference Range Interpretation Comments Hct (test code = Hct) 29.5 36.0-48.0 [facility] CentralKphdjenPPMJPAOCMO6813-61-56 09:00:00 Test Item Value Reference Range Interpretation Comments MCV (test code = MCV) 86.4 80.0-98.0 [facility] CentralRjxmrjlMTACISCGJB3194-47-82 09:00:00 Test Item Value Reference Range Interpretation Comments MCH (test code = MCH) 28.3 pg 27.0-31.0 [facility] CentralBhrrcqwFUKCXUHMJX6833-97-90 09:00:00 Test Item Value Reference Range Interpretation Comments MCHC (test code = MCHC) 32.8 32.0-36.0 [facility] CentralNhyoehjMHWOVTYRNQ8370-69-26 09:00:00 Test Item Value Reference Range Interpretation Comments RDW (test code = RDW) 14.9 11.5-14.5 [facility] CentralHwhoqjrERCCBQSWCI8188-22-11 09:00:00 Test Item Value Reference Range Interpretation Comments Platelet (test code = Platelet) 353 133-450 [facility] CentralSfkeofzZTMNGGYTGM9325-28-10 09:00:00 Test Item Value Reference Range Interpretation Comments MPV (test code = MPV) 8.3 7.4-10.4 [place] 853501-10-19 09:00:00 Test Item Value Reference Range Interpretation Comments Glucose Lvl (test code = Glucose Lvl) 173 70-99 [place] 853501-10-19 09:00:00 Test Item Value Reference Range Interpretation Comments BUN (test code = BUN) 8 7-22 [place] 853501-10-19 09:00:00 Test Item Value Reference Range Interpretation Comments Creatinine Lvl (test code = Creatinine 0.55 0.50-1.40 Lvl) [facility]2021-10-19 09:00:00 Test Item Value Reference Range Interpretation Comments Sodium Lvl (test code = Sodium Lvl) 139 135-145 [place] 853501-10-19 09:00:00 Test Item Value Reference Range Interpretation Comments Potassium Lvl (test code = Potassium 4.1 3.5-5.1 Lvl) [facility]2021-10-19 09:00:00 Test Item Value Reference Range Interpretation Comments Chloride Lvl (test code = Chloride Lvl) 109 95-109 [facility]2021-10-19 09:00:00 Test Item Value Reference Range Interpretation Comments CO2 (test code = CO2) 24 24-32 [place] 853501-10-19 09:00:00 Test Item Value Reference Range Interpretation Comments AGAP (test code = AGAP) 10.1 10.0-20.0 [place] 853501-10-19 09:00:00 Test Item Value Reference Range Interpretation Comments Calcium Lvl (test code = Calcium Lvl) 8.6 8.5-10.5 [facility]2021-10-19 09:00:00 Test Item Value Reference Range Interpretation Comments eGFR (test code = eGFR) 97 [place] 139731-10-19 09:00:00 Test Item Value Reference Range Interpretation Comments Segs (test code = Segs) 90.2 45.0-75.0 [place] 139731-10-19 09:00:00 Test Item Value Reference Range Interpretation Comments Lymphocytes (test code = Lymphocytes) 4.7 20.0-40.0 [place] 139731-10-19 09:00:00 Test Item Value Reference Range Interpretation Comments Monocytes (test code = Monocytes) 5.0 2.0-12.0 [facility] CentralNyzffqyZLWULGRPWN4005-26-24 09:00:00 Test Item Value Reference Range Interpretation Comments Basophils (test code = 0.1 See_Comment [Aut omated message] The Basophils) system which ge nerated this result tra nsmitted reference range : <=1.0. The reference r arelis was not used to int erpret this result as normal/abnormal . [facility] CentralLzgsnvkXHNIRQNXJN6308-67-76 09:00:00 Test Item Value Reference Range Interpretation Comments Neutrophils # (test code = Neutrophils 8.4 1.5-8.1 #) [facility] CentralJcbfxdnRNIJQOUOBY5783-15-41 09:00:00 Test Item Value Reference Range Interpretation Comments Lymphocytes # (test code = Lymphocytes 0.4 1.0-5.5 #) [facility] CentralFgjvutkSZWHRCQUGA5803-57-08 09:00:00 Test Item Value Reference Range Interpretation Comments Monocytes # (test code 0.5 See_Comment [Aut omated message] The = Monocytes #) system which generated this result tra nsmitted reference range : <=0.8. The reference r arelis was not used to int erpret this result as normal/abnormal . [facility] CentralIpvjvpjJAASFUVWIQ6139-09-01 09:00:00 Test Item Value Reference Range Interpretation Comments WBC (test code = WBC) 9.3 3.7-10.4 [facility] CentralFfioclmYAXKQYQLNK9848-56-91 09:00:00 Test Item Value Reference Range Interpretation Comments RBC (test code = RBC) 3.41 4.20-5.40 [facility] CentralZorupjjVKCSXOKMBP9212-15-94 09:00:00 Test Item Value Reference Range Interpretation Comments Hgb (test code = Hgb) 9.7 12.0-16.0 [facility] CentralObtiyiuJWWOEAPBOB3928-49-90 09:00:00 Test Item Value Reference Range Interpretation Comments Hct (test code = Hct) 29.5 36.0-48.0 [facility] CentralYldmfhlXGITLSJCZK4354-58-75 09:00:00 Test Item Value Reference Range Interpretation Comments MCV (test code = MCV) 86.4 80.0-98.0 [facility] CentralTbyvjszRZYEVROHCK3660-10-75 09:00:00 Test Item Value Reference Range Interpretation Comments MCH (test code = MCH) 28.3 pg 27.0-31.0 [place] [address]-10-19 09:00:00 Test Item Value Reference Range Interpretation Comments MCHC (test code = MCHC) 32.8 32.0-36.0 [place] 139731-10-19 09:00:00 Test Item Value Reference Range Interpretation Comments RDW (test code = RDW) 14.9 11.5-14.5 [place] 139731-10-19 09:00:00 Test Item Value Reference Range Interpretation Comments Platelet (test code = Platelet) 353 133-450 [facility] CentralVnfkwogEGOGIMIPOZ3706-33-62 09:00:00 Test Item Value Reference Range Interpretation Comments MPV (test code = MPV) 8.3 7.4-10.4 [facility]2021-10-19 09:00:00 Test Item Value Reference Range Interpretation Comments Glucose Lvl (test code = Glucose Lvl) 173 70-99 [facility]2021-10-19 09:00:00 Test Item Value Reference Range Interpretation Comments BUN (test code = BUN) 8 7-22 [facility]2021-10-19 09:00:00 Test Item Value Reference Range Interpretation Comments Creatinine Lvl (test code = Creatinine 0.55 0.50-1.40 Lvl) [facility]2021-10-19 09:00:00 Test Item Value Reference Range Interpretation Comments Sodium Lvl (test code = Sodium Lvl) 139 135-145 [place] 853501-10-19 09:00:00 Test Item Value Reference Range Interpretation Comments Potassium Lvl (test code = Potassium 4.1 3.5-5.1 Lvl) [facility]2021-10-19 09:00:00 Test Item Value Reference Range Interpretation Comments Chloride Lvl (test code = Chloride Lvl) 109 95-109 [place] 853501-10-19 09:00:00 Test Item Value Reference Range Interpretation Comments CO2 (test code = CO2) 24 24-32 [facility]2021-10-19 09:00:00 Test Item Value Reference Range Interpretation Comments AGAP (test code = AGAP) 10.1 10.0-20.0 [place] 853501-10-19 09:00:00 Test Item Value Reference Range Interpretation Comments Calcium Lvl (test code = Calcium Lvl) 8.6 8.5-10.5 [facility]2021-10-19 09:00:00 Test Item Value Reference Range Interpretation Comments eGFR (test code = eGFR) 97 [facility] CentralRzdhqfcELVAFJULLQ5083-64-37 09:00:00 Test Item Value Reference Range Interpretation Comments Segs (test code = Segs) 90.2 45.0-75.0 [facility] CentralSrgcgtlYXBCHXLOUZ0729-49-16 09:00:00 Test Item Value Reference Range Interpretation Comments Lymphocytes (test code = Lymphocytes) 4.7 20.0-40.0 [place] 139731-10-19 09:00:00 Test Item Value Reference Range Interpretation Comments Monocytes (test code = Monocytes) 5.0 2.0-12.0 [place] 139731-10-19 09:00:00 Test Item Value Reference Range Interpretation Comments Basophils (test code = 0.1 See_Comment [Aut omated message] The Basophils) system which ge nerated this result tra nsmitted reference range : <=1.0. The reference r arelis was not used to int erpret this result as normal/abnormal . [facility] CentralGbfmeqrENKEHQXZUI1405-55-80 09:00:00 Test Item Value Reference Range Interpretation Comments Neutrophils # (test code = Neutrophils 8.4 1.5-8.1 #) [facility] CentralUyfyzqqVASGEOWJOB2457-59-38 09:00:00 Test Item Value Reference Range Interpretation Comments Lymphocytes # (test code = Lymphocytes 0.4 1.0-5.5 #) [place] 139731-10-19 09:00:00 Test Item Value Reference Range Interpretation Comments Monocytes # (test code 0.5 See_Comment [Aut omated message] The = Monocytes #) system which generated this result tra nsmitted reference range : <=0.8. The reference r arelis was not used to int erpret this result as normal/abnormal . [facility] CentralJqjeyjyKCGXAWSAIT3982-30-98 09:00:00 Test Item Value Reference Range Interpretation Comments WBC (test code = WBC) 9.3 3.7-10.4 [place] 139731-10-19 09:00:00 Test Item Value Reference Range Interpretation Comments RBC (test code = RBC) 3.41 4.20-5.40 [place] 139731-10-19 09:00:00 Test Item Value Reference Range Interpretation Comments Hgb (test code = Hgb) 9.7 12.0-16.0 [facility] CentralAypmydsBYVNCHTISG0396-04-90 09:00:00 Test Item Value Reference Range Interpretation Comments Hct (test code = Hct) 29.5 36.0-48.0 [facility] CentralDwlmvvpRKTJZJMHRT3091-89-37 09:00:00 Test Item Value Reference Range Interpretation Comments MCV (test code = MCV) 86.4 80.0-98.0 [facility] CentralHajvoglENAUCXXMIC8747-58-23 09:00:00 Test Item Value Reference Range Interpretation Comments MCH (test code = MCH) 28.3 pg 27.0-31.0 [facility] CentralDriblpyFFEQUAZLBM0584-40-15 09:00:00 Test Item Value Reference Range Interpretation Comments MCHC (test code = MCHC) 32.8 32.0-36.0 [facility] CentralYlnfmkrIQYAVESFAQ0321-58-42 09:00:00 Test Item Value Reference Range Interpretation Comments RDW (test code = RDW) 14.9 11.5-14.5 [facility] CentralFqfgzltUXDGZTKHUC4396-54-38 09:00:00 Test Item Value Reference Range Interpretation Comments Platelet (test code = Platelet) 353 133-450 [facility] CentralIynemzcQUMIDVJFGY2709-64-79 09:00:00 Test Item Value Reference Range Interpretation Comments MPV (test code = MPV) 8.3 7.4-10.4 [facility]2021-10-19 09:00:00 Test Item Value Reference Range Interpretation Comments Glucose Lvl (test code = Glucose Lvl) 173 70-99 [facility]2021-10-19 09:00:00 Test Item Value Reference Range Interpretation Comments BUN (test code = BUN) 8 7-22 [facility]2021-10-19 09:00:00 Test Item Value Reference Range Interpretation Comments Creatinine Lvl (test code = Creatinine 0.55 0.50-1.40 Lvl) [facility]2021-10-19 09:00:00 Test Item Value Reference Range Interpretation Comments Sodium Lvl (test code = Sodium Lvl) 139 135-145 [facility]2021-10-19 09:00:00 Test Item Value Reference Range Interpretation Comments Potassium Lvl (test code = Potassium 4.1 3.5-5.1 Lvl) [place] 853501-10-19 09:00:00 Test Item Value Reference Range Interpretation Comments Chloride Lvl (test code = Chloride Lvl) 109 95-109 [place] 853501-10-19 09:00:00 Test Item Value Reference Range Interpretation Comments CO2 (test code = CO2) 24 24-32 [place] 853501-10-19 09:00:00 Test Item Value Reference Range Interpretation Comments AGAP (test code = AGAP) 10.1 10.0-20.0 [place] 853501-10-19 09:00:00 Test Item Value Reference Range Interpretation Comments Calcium Lvl (test code = Calcium Lvl) 8.6 8.5-10.5 [place] 853501-10-19 09:00:00 Test Item Value Reference Range Interpretation Comments eGFR (test code = eGFR) 97 [place] 139731-10-19 09:00:00 Test Item Value Reference Range Interpretation Comments Segs (test code = Segs) 90.2 45.0-75.0 [place] 139731-10-19 09:00:00 Test Item Value Reference Range Interpretation Comments Lymphocytes (test code = Lymphocytes) 4.7 20.0-40.0 [place] 139731-10-19 09:00:00 Test Item Value Reference Range Interpretation Comments Monocytes (test code = Monocytes) 5.0 2.0-12.0 [place] 139731-10-19 09:00:00 Test Item Value Reference Range Interpretation Comments Basophils (test code = 0.1 See_Comment [Aut omated message] The Basophils) system which ge nerated this result tra nsmitted reference range : <=1.0. The reference r arelis was not used to int erpret this result as normal/abnormal . [facility] CentralJhmmbcqBTXQQRFPHV8651-22-58 09:00:00 Test Item Value Reference Range Interpretation Comments Neutrophils # (test code = Neutrophils 8.4 1.5-8.1 #) [place] 139731-10-19 09:00:00 Test Item Value Reference Range Interpretation Comments Lymphocytes # (test code = Lymphocytes 0.4 1.0-5.5 #) [facility] CentralEpnauomGHJELVJULC6918-54-95 09:00:00 Test Item Value Reference Range Interpretation Comments Monocytes # (test code 0.5 See_Comment [Aut omated message] The = Monocytes #) system which generated this result tra nsmitted reference range : <=0.8. The reference r arelis was not used to int erpret this result as normal/abnormal . [facility] CentralVxnimmaCPKHNFHZQO8569-36-70 09:00:00 Test Item Value Reference Range Interpretation Comments WBC (test code = WBC) 9.3 3.7-10.4 [facility] CentralRpwyfmvBNKRHELTTX9473-24-49 09:00:00 Test Item Value Reference Range Interpretation Comments RBC (test code = RBC) 3.41 4.20-5.40 [facility] CentralCyfnghqLKDMYVVRBL9801-85-78 09:00:00 Test Item Value Reference Range Interpretation Comments Hgb (test code = Hgb) 9.7 12.0-16.0 [facility] CentralBgquormXYMYUWUDDZ0076-55-11 09:00:00 Test Item Value Reference Range Interpretation Comments Hct (test code = Hct) 29.5 36.0-48.0 [facility] CentralOramebiIEWRZQWOYT4315-96-81 09:00:00 Test Item Value Reference Range Interpretation Comments MCV (test code = MCV) 86.4 80.0-98.0 [facility] CentralNyfbfmyHAVIMLROYA2448-90-59 09:00:00 Test Item Value Reference Range Interpretation Comments MCH (test code = MCH) 28.3 pg 27.0-31.0 [facility] CentralOnkienkLXNOQTFPDR3182-61-94 09:00:00 Test Item Value Reference Range Interpretation Comments MCHC (test code = MCHC) 32.8 32.0-36.0 [facility] CentralHjdxnuzDJAOGGHJBW9961-48-65 09:00:00 Test Item Value Reference Range Interpretation Comments RDW (test code = RDW) 14.9 11.5-14.5 [facility] CentralEuzcxohQSAFSBNGYO6041-40-40 09:00:00 Test Item Value Reference Range Interpretation Comments Platelet (test code = Platelet) 353 133-450 [facility] CentralOxzdiksSFGLWIYNKN0821-14-69 09:00:00 Test Item Value Reference Range Interpretation Comments MPV (test code = MPV) 8.3 7.4-10.4 [facility]2021-10-19 09:00:00 Test Item Value Reference Range Interpretation Comments Glucose Lvl (test code = Glucose Lvl) 173 70-99 [facility]2021-10-19 09:00:00 Test Item Value Reference Range Interpretation Comments BUN (test code = BUN) 8 7-22 [place] 853501-10-19 09:00:00 Test Item Value Reference Range Interpretation Comments Creatinine Lvl (test code = Creatinine 0.55 0.50-1.40 Lvl) [facility]2021-10-19 09:00:00 Test Item Value Reference Range Interpretation Comments Sodium Lvl (test code = Sodium Lvl) 139 135-145 [place] 853501-10-19 09:00:00 Test Item Value Reference Range Interpretation Comments Potassium Lvl (test code = Potassium 4.1 3.5-5.1 Lvl) [place] 853501-10-19 09:00:00 Test Item Value Reference Range Interpretation Comments Chloride Lvl (test code = Chloride Lvl) 109 95-109 [place] 853501-10-19 09:00:00 Test Item Value Reference Range Interpretation Comments CO2 (test code = CO2) 24 24-32 [place] 853501-10-19 09:00:00 Test Item Value Reference Range Interpretation Comments AGAP (test code = AGAP) 10.1 10.0-20.0 [place] 853501-10-19 09:00:00 Test Item Value Reference Range Interpretation Comments Calcium Lvl (test code = Calcium Lvl) 8.6 8.5-10.5 [facility]2021-10-19 09:00:00 Test Item Value Reference Range Interpretation Comments eGFR (test code = eGFR) 97 [place] 139731-10-19 09:00:00 Test Item Value Reference Range Interpretation Comments Segs (test code = Segs) 90.2 45.0-75.0 [place] 139731-10-19 09:00:00 Test Item Value Reference Range Interpretation Comments Lymphocytes (test code = Lymphocytes) 4.7 20.0-40.0 [place] 139731-10-19 09:00:00 Test Item Value Reference Range Interpretation Comments Monocytes (test code = Monocytes) 5.0 2.0-12.0 [place] 139731-10-19 09:00:00 Test Item Value Reference Range Interpretation Comments Basophils (test code = 0.1 See_Comment [Aut omated message] The Basophils) system which ge nerated this result tra nsmitted reference range : <=1.0. The reference r arelis was not used to int erpret this result as normal/abnormal . [facility]SkxahcjFAXOSGTNLB0911-92-82 09:00:00 Test Item Value Reference Range Interpretation Comments Neutrophils # (test code = Neutrophils 8.4 1.5-8.1 #) [facility] CentralKgwtyfoSOOIKOTBKI6883-05-52 09:00:00 Test Item Value Reference Range Interpretation Comments Lymphocytes # (test code = Lymphocytes 0.4 1.0-5.5 #) [facility] CentralYmtsuimXDBMWBDRNZ1890-19-15 09:00:00 Test Item Value Reference Range Interpretation Comments Monocytes # (test code 0.5 See_Comment [Aut omated message] The = Monocytes #) system which generated this result tra nsmitted reference range : <=0.8. The reference r arelis was not used to int erpret this result as normal/abnormal . [facility] CentralPwphmxwLUTILVVMAM8827-80-95 09:00:00 Test Item Value Reference Range Interpretation Comments WBC (test code = WBC) 9.3 3.7-10.4 [facility] CentralFleqyupPEFCSBKLNA4482-51-35 09:00:00 Test Item Value Reference Range Interpretation Comments RBC (test code = RBC) 3.41 4.20-5.40 [facility] CentralEnzldsjGBNWHXGXWN3269-95-67 09:00:00 Test Item Value Reference Range Interpretation Comments Hgb (test code = Hgb) 9.7 12.0-16.0 [facility] CentralBbwbsljOIAESQYNIG4828-26-44 09:00:00 Test Item Value Reference Range Interpretation Comments Hct (test code = Hct) 29.5 36.0-48.0 [facility] CentralQkkfblcBXIHSFYAVL6528-14-64 09:00:00 Test Item Value Reference Range Interpretation Comments MCV (test code = MCV) 86.4 80.0-98.0 [facility] CentralHqwszfwQKSRVFOJES5946-62-10 09:00:00 Test Item Value Reference Range Interpretation Comments MCH (test code = MCH) 28.3 pg 27.0-31.0 [facility] CentralHyadgokMPCLMITQAS6667-68-94 09:00:00 Test Item Value Reference Range Interpretation Comments MCHC (test code = MCHC) 32.8 32.0-36.0 [facility] CentralCotpmruHNYAPPYRVC2745-83-93 09:00:00 Test Item Value Reference Range Interpretation Comments RDW (test code = RDW) 14.9 11.5-14.5 [place] 139731-10-19 09:00:00 Test Item Value Reference Range Interpretation Comments Platelet (test code = Platelet) 353 133-450 [facility] CentralEkotrczWTKGTHYECF5476-02-31 09:00:00 Test Item Value Reference Range Interpretation Comments MPV (test code = MPV) 8.3 7.4-10.4 [facility]2021-10-19 09:00:00 Test Item Value Reference Range Interpretation Comments Glucose Lvl (test code = Glucose Lvl) 173 70-99 [facility]2021-10-19 09:00:00 Test Item Value Reference Range Interpretation Comments BUN (test code = BUN) 8 7-22 [facility]2021-10-19 09:00:00 Test Item Value Reference Range Interpretation Comments Creatinine Lvl (test code = Creatinine 0.55 0.50-1.40 Lvl) [facility]2021-10-19 09:00:00 Test Item Value Reference Range Interpretation Comments Sodium Lvl (test code = Sodium Lvl) 139 135-145 [facility]2021-10-19 09:00:00 Test Item Value Reference Range Interpretation Comments Potassium Lvl (test code = Potassium 4.1 3.5-5.1 Lvl) [facility]2021-10-19 09:00:00 Test Item Value Reference Range Interpretation Comments Chloride Lvl (test code = Chloride Lvl) 109 95-109 [facility]2021-10-19 09:00:00 Test Item Value Reference Range Interpretation Comments CO2 (test code = CO2) 24 24-32 [facility]2021-10-19 09:00:00 Test Item Value Reference Range Interpretation Comments AGAP (test code = AGAP) 10.1 10.0-20.0 [place] [address]3501-10-19 09:00:00 Test Item Value Reference Range Interpretation Comments Calcium Lvl (test code = Calcium Lvl) 8.6 8.5-10.5 [facility]2021-10-19 09:00:00 Test Item Value Reference Range Interpretation Comments eGFR (test code = eGFR) 97 [facility] CentralTfgyqbwEEXQVZMVYG0752-46-16 09:00:00 Test Item Value Reference Range Interpretation Comments Segs (test code = Segs) 90.2 45.0-75.0 [place] 139731-10-19 09:00:00 Test Item Value Reference Range Interpretation Comments Lymphocytes (test code = Lymphocytes) 4.7 20.0-40.0 [facility] CentralPrhnfgtCXXMGNWNBL6796-96-16 09:00:00 Test Item Value Reference Range Interpretation Comments Monocytes (test code = Monocytes) 5.0 2.0-12.0 [facility] CentralOrwmrsyAQHYMVSBAX9910-93-67 09:00:00 Test Item Value Reference Range Interpretation Comments Basophils (test code = 0.1 See_Comment [Aut omated message] The Basophils) system which ge nerated this result tra nsmitted reference range : <=1.0. The reference r arelis was not used to int erpret this result as normal/abnormal . [facility] CentralLogbxteCLUESMEAQH1238-76-78 09:00:00 Test Item Value Reference Range Interpretation Comments Neutrophils # (test code = Neutrophils 8.4 1.5-8.1 #) [facility] CentralHxpllrfZEHOTBESXA3733-21-84 09:00:00 Test Item Value Reference Range Interpretation Comments Lymphocytes # (test code = Lymphocytes 0.4 1.0-5.5 #) [facility] CentralDdirgjgQBQBNWFKVO1107-40-32 09:00:00 Test Item Value Reference Range Interpretation Comments Monocytes # (test code 0.5 See_Comment [Aut omated message] The = Monocytes #) system which generated this result tra nsmitted reference range : <=0.8. The reference r arelis was not used to int erpret this result as normal/abnormal . [facility] CentralGnhsdswHZFCIMLIMS8190-31-64 09:00:00 Test Item Value Reference Range Interpretation Comments WBC (test code = WBC) 9.3 3.7-10.4 [facility] CentralFpahwlbDCWEMCRMNY5820-31-61 09:00:00 Test Item Value Reference Range Interpretation Comments RBC (test code = RBC) 3.41 4.20-5.40 [facility] CentralYebwzlaMPTCCCZHGE4549-75-40 09:00:00 Test Item Value Reference Range Interpretation Comments Hgb (test code = Hgb) 9.7 12.0-16.0 [place] 139731-10-19 09:00:00 Test Item Value Reference Range Interpretation Comments Hct (test code = Hct) 29.5 36.0-48.0 [place] 139731-10-19 09:00:00 Test Item Value Reference Range Interpretation Comments MCV (test code = MCV) 86.4 80.0-98.0 [place] 139731-10-19 09:00:00 Test Item Value Reference Range Interpretation Comments MCH (test code = MCH) 28.3 pg 27.0-31.0 [place] 139731-10-19 09:00:00 Test Item Value Reference Range Interpretation Comments MCHC (test code = MCHC) 32.8 32.0-36.0 [place] 139731-10-19 09:00:00 Test Item Value Reference Range Interpretation Comments RDW (test code = RDW) 14.9 11.5-14.5 [place] 139731-10-19 09:00:00 Test Item Value Reference Range Interpretation Comments Platelet (test code = Platelet) 353 133-450 [facility] CentralStreqhgWECCTBNBNI6461-29-25 09:00:00 Test Item Value Reference Range Interpretation Comments MPV (test code = MPV) 8.3 7.4-10.4 [facility]2021-10-19 09:00:00 Test Item Value Reference Range Interpretation Comments Glucose Lvl (test code = Glucose Lvl) 173 70-99 [facility]2021-10-19 09:00:00 Test Item Value Reference Range Interpretation Comments BUN (test code = BUN) 8 7-22 [facility]2021-10-19 09:00:00 Test Item Value Reference Range Interpretation Comments Creatinine Lvl (test code = Creatinine 0.55 0.50-1.40 Lvl) [facility]2021-10-19 09:00:00 Test Item Value Reference Range Interpretation Comments Sodium Lvl (test code = Sodium Lvl) 139 135-145 [place] [address]3501-10-19 09:00:00 Test Item Value Reference Range Interpretation Comments Potassium Lvl (test code = Potassium 4.1 3.5-5.1 Lvl) [facility]2021-10-19 09:00:00 Test Item Value Reference Range Interpretation Comments Chloride Lvl (test code = Chloride Lvl) 109 95-109 [facility]2021-10-19 09:00:00 Test Item Value Reference Range Interpretation Comments CO2 (test code = CO2) 24 24-32 [place] [address]3501-10-19 09:00:00 Test Item Value Reference Range Interpretation Comments AGAP (test code = AGAP) 10.1 10.0-20.0 [place] [address]3501-10-19 09:00:00 Test Item Value Reference Range Interpretation Comments Calcium Lvl (test code = Calcium Lvl) 8.6 8.5-10.5 [facility]2021-10-19 09:00:00 Test Item Value Reference Range Interpretation Comments eGFR (test code = eGFR) 97 [facility] CentralEjobfsnFKXSJDYNVU9904-29-53 09:00:00 Test Item Value Reference Range Interpretation Comments Segs (test code = Segs) 90.2 45.0-75.0 [facility] CentralVyykwzsULCMLLNQED7196-32-25 09:00:00 Test Item Value Reference Range Interpretation Comments Lymphocytes (test code = Lymphocytes) 4.7 20.0-40.0 [facility] CentralFftwiwtMKWCTABHRI6310-44-50 09:00:00 Test Item Value Reference Range Interpretation Comments Monocytes (test code = Monocytes) 5.0 2.0-12.0 [facility] CentralMxhhbtlRBSCGTSWPI6300-13-21 09:00:00 Test Item Value Reference Range Interpretation Comments Basophils (test code = 0.1 See_Comment [Aut omated message] The Basophils) system which ge nerated this result tra nsmitted reference range : <=1.0. The reference r arelis was not used to int erpret this result as normal/abnormal . [facility] CentralLtaipskODJFBNZBFE0592-09-04 09:00:00 Test Item Value Reference Range Interpretation Comments Neutrophils # (test code = Neutrophils 8.4 1.5-8.1 #) [place] [address]3501-10-19 09:00:00 Test Item Value Reference Range Interpretation Comments Glucose Lvl (test code = Glucose Lvl) 173 70-99 [facility] CentralJdjgjraBEBEXZLWNB2987-22-54 09:00:00 Test Item Value Reference Range Interpretation Comments Lymphocytes # (test code = Lymphocytes 0.4 1.0-5.5 #) [facility] CentralXnzhocgJGTXQWREDA5923-30-28 09:00:00 Test Item Value Reference Range Interpretation Comments Monocytes # (test code 0.5 See_Comment [Aut omated message] The = Monocytes #) system which generated this result tra nsmitted reference range : <=0.8. The reference r arelis was not used to int erpret this result as normal/abnormal . [facility] CentralHvbciyoVWBXGOZMCM6794-18-03 09:00:00 Test Item Value Reference Range Interpretation Comments WBC (test code = WBC) 9.3 3.7-10.4 [facility] CentralLpnfkwdZGKBIUCSKA9171-46-97 09:00:00 Test Item Value Reference Range Interpretation Comments RBC (test code = RBC) 3.41 4.20-5.40 [facility] CentralTwuvbwrCKBHOBVTJS1732-58-03 09:00:00 Test Item Value Reference Range Interpretation Comments Hgb (test code = Hgb) 9.7 12.0-16.0 [facility] CentralGainyqbQIPFEHQJSQ3148-01-69 09:00:00 Test Item Value Reference Range Interpretation Comments Hct (test code = Hct) 29.5 36.0-48.0 [facility] CentralXrbyzwoYCJBNHZOYS3686-20-24 09:00:00 Test Item Value Reference Range Interpretation Comments MCV (test code = MCV) 86.4 80.0-98.0 [facility] CentralRqxuqsgOGQUPADMRK8599-73-58 09:00:00 Test Item Value Reference Range Interpretation Comments MCH (test code = MCH) 28.3 pg 27.0-31.0 [facility] CentralWkydwhyTXYFRJUAUL9871-89-05 09:00:00 Test Item Value Reference Range Interpretation Comments MCHC (test code = MCHC) 32.8 32.0-36.0 [facility] CentralOpcvihsVBOHNUPQTS3948-77-48 09:00:00 Test Item Value Reference Range Interpretation Comments RDW (test code = RDW) 14.9 11.5-14.5 [facility]2021-10-19 09:00:00 Test Item Value Reference Range Interpretation Comments BUN (test code = BUN) 8 7-22 [facility] CentralZecjypuGFWKDFPFKI9677-44-07 09:00:00 Test Item Value Reference Range Interpretation Comments Platelet (test code = Platelet) 353 133-450 [facility] CentralXvmsecsFJCLEBZYRU5475-02-25 09:00:00 Test Item Value Reference Range Interpretation Comments MPV (test code = MPV) 8.3 7.4-10.4 [place] [address]3501-10-19 09:00:00 Test Item Value Reference Range Interpretation Comments Creatinine Lvl (test code = Creatinine 0.55 0.50-1.40 Lvl) [place] [address]3501-10-19 09:00:00 Test Item Value Reference Range Interpretation Comments Sodium Lvl (test code = Sodium Lvl) 139 135-145 [place] [address]3501-10-19 09:00:00 Test Item Value Reference Range Interpretation Comments Potassium Lvl (test code = Potassium 4.1 3.5-5.1 Lvl) [place] [address]3501-10-19 09:00:00 Test Item Value Reference Range Interpretation Comments Chloride Lvl (test code = Chloride Lvl) 109 95-109 [place] [address]3501-10-19 09:00:00 Test Item Value Reference Range Interpretation Comments CO2 (test code = CO2) 24 24-32 [place] [address]3501-10-19 09:00:00 Test Item Value Reference Range Interpretation Comments AGAP (test code = AGAP) 10.1 10.0-20.0 [place] [address]3501-10-19 09:00:00 Test Item Value Reference Range Interpretation Comments Calcium Lvl (test code = Calcium Lvl) 8.6 8.5-10.5 [place] [address]3501-10-19 09:00:00 Test Item Value Reference Range Interpretation Comments eGFR (test code = eGFR) 97 [place] 139731-10-19 09:00:00 Test Item Value Reference Range Interpretation Comments Segs (test code = Segs) 90.2 45.0-75.0 [place] 139731-10-19 09:00:00 Test Item Value Reference Range Interpretation Comments Lymphocytes (test code = Lymphocytes) 4.7 20.0-40.0 [place] 139731-10-19 09:00:00 Test Item Value Reference Range Interpretation Comments Monocytes (test code = Monocytes) 5.0 2.0-12.0 [place] 139731-10-19 09:00:00 Test Item Value Reference Range Interpretation Comments Basophils (test code = 0.1 See_Comment [Aut omated message] The Basophils) system which ge nerated this result tra nsmitted reference range : <=1.0. The reference r arelis was not used to int erpret this result as normal/abnormal . [facility] CentralEoqpwweUXOZOYHEOV9453-71-43 09:00:00 Test Item Value Reference Range Interpretation Comments Neutrophils # (test code = Neutrophils 8.4 1.5-8.1 #) [facility] CentralBuuojcoRIUVZUTNAE0971-69-00 09:00:00 Test Item Value Reference Range Interpretation Comments Lymphocytes # (test code = Lymphocytes 0.4 1.0-5.5 #) [facility] CentralNwwfwyxUFNYRUZVQO8919-13-92 09:00:00 Test Item Value Reference Range Interpretation Comments Monocytes # (test code 0.5 See_Comment [Aut omated message] The = Monocytes #) system which generated this result tra nsmitted reference range : <=0.8. The reference r arelis was not used to int erpret this result as normal/abnormal . [facility] CentralIfpgefmKOANRGUSSF6867-68-71 09:00:00 Test Item Value Reference Range Interpretation Comments WBC (test code = WBC) 9.3 3.7-10.4 [place] 139731-10-19 09:00:00 Test Item Value Reference Range Interpretation Comments RBC (test code = RBC) 3.41 4.20-5.40 [facility] CentralCabqhrtOQCJUDSLJQ4079-90-65 09:00:00 Test Item Value Reference Range Interpretation Comments Hgb (test code = Hgb) 9.7 12.0-16.0 [facility] CentralQhcydyqYHVCGFCULN8816-81-38 09:00:00 Test Item Value Reference Range Interpretation Comments Hct (test code = Hct) 29.5 36.0-48.0 [place] 139731-10-19 09:00:00 Test Item Value Reference Range Interpretation Comments MCV (test code = MCV) 86.4 80.0-98.0 [facility] CentralDcpksioEODWRSXBOH2875-01-57 09:00:00 Test Item Value Reference Range Interpretation Comments MCH (test code = MCH) 28.3 pg 27.0-31.0 [place] 139731-10-19 09:00:00 Test Item Value Reference Range Interpretation Comments MCHC (test code = MCHC) 32.8 32.0-36.0 [facility] CentralJzvztnzHCVXHAWUPR7642-50-01 09:00:00 Test Item Value Reference Range Interpretation Comments RDW (test code = RDW) 14.9 11.5-14.5 [place] 139731-10-19 09:00:00 Test Item Value Reference Range Interpretation Comments Platelet (test code = Platelet) 353 133-450 [place] 139731-10-19 09:00:00 Test Item Value Reference Range Interpretation Comments MPV (test code = MPV) 8.3 7.4-10.4 [place] [address]3501-10-19 09:00:00 Test Item Value Reference Range Interpretation Comments Glucose Lvl (test code = Glucose Lvl) 173 70-99 [place] 853501-10-19 09:00:00 Test Item Value Reference Range Interpretation Comments BUN (test code = BUN) 8 7-22 [facility]2021-10-19 09:00:00 Test Item Value Reference Range Interpretation Comments Creatinine Lvl (test code = Creatinine 0.55 0.50-1.40 Lvl) [facility]2021-10-19 09:00:00 Test Item Value Reference Range Interpretation Comments Sodium Lvl (test code = Sodium Lvl) 139 135-145 [facility]2021-10-19 09:00:00 Test Item Value Reference Range Interpretation Comments Potassium Lvl (test code = Potassium 4.1 3.5-5.1 Lvl) [facility]2021-10-19 09:00:00 Test Item Value Reference Range Interpretation Comments Chloride Lvl (test code = Chloride Lvl) 109 95-109 [facility]2021-10-19 09:00:00 Test Item Value Reference Range Interpretation Comments CO2 (test code = CO2) 24 24-32 [place] [address]3501-10-19 09:00:00 Test Item Value Reference Range Interpretation Comments AGAP (test code = AGAP) 10.1 10.0-20.0 [place] [address]3501-10-19 09:00:00 Test Item Value Reference Range Interpretation Comments Calcium Lvl (test code = Calcium Lvl) 8.6 8.5-10.5 [place] [address]3501-10-19 09:00:00 Test Item Value Reference Range Interpretation Comments eGFR (test code = eGFR) 97 [place] 139731-10-19 09:00:00 Test Item Value Reference Range Interpretation Comments Segs (test code = Segs) 90.2 45.0-75.0 [facility] CentralLrvtwswUPMNGZJUXW3652-06-04 09:00:00 Test Item Value Reference Range Interpretation Comments Lymphocytes (test code = Lymphocytes) 4.7 20.0-40.0 [facility] CentralKzmhmkaALFXNFCNNL0156-22-74 09:00:00 Test Item Value Reference Range Interpretation Comments Monocytes (test code = Monocytes) 5.0 2.0-12.0 [facility] CentralUmofdfaRVRTQMDKWO7117-57-12 09:00:00 Test Item Value Reference Range Interpretation Comments Basophils (test code = 0.1 See_Comment [Aut omated message] The Basophils) system which ge nerated this result tra nsmitted reference range : <=1.0. The reference r arelis was not used to int erpret this result as normal/abnormal . [facility] CentralXdcpxmdWYSCPVUMBP3387-85-13 09:00:00 Test Item Value Reference Range Interpretation Comments Neutrophils # (test code = Neutrophils 8.4 1.5-8.1 #) [facility] CentralSffubjyEIDRKYPNCI3349-74-60 09:00:00 Test Item Value Reference Range Interpretation Comments Lymphocytes # (test code = Lymphocytes 0.4 1.0-5.5 #) [facility] CentralNxzxlvtYVWODVZYBA6795-25-24 09:00:00 Test Item Value Reference Range Interpretation Comments Monocytes # (test code 0.5 See_Comment [Aut omated message] The = Monocytes #) system which generated this result tra nsmitted reference range : <=0.8. The reference r arelis was not used to int erpret this result as normal/abnormal . [facility] CentralVrnpbiyCYOHHUJPVE1310-43-91 09:00:00 Test Item Value Reference Range Interpretation Comments WBC (test code = WBC) 9.3 3.7-10.4 [facility] CentralUtazwmuOXHTYZQJQS6218-45-94 09:00:00 Test Item Value Reference Range Interpretation Comments RBC (test code = RBC) 3.41 4.20-5.40 [facility] CentralSslnccvOZQNPVPHGS8300-37-25 09:00:00 Test Item Value Reference Range Interpretation Comments Hgb (test code = Hgb) 9.7 12.0-16.0 [facility] CentralNvtaxhoYQKJWIJOUP8113-26-64 09:00:00 Test Item Value Reference Range Interpretation Comments Hct (test code = Hct) 29.5 36.0-48.0 [facility] CentralRlomorqNVFFRBZZRO4751-49-63 09:00:00 Test Item Value Reference Range Interpretation Comments MCV (test code = MCV) 86.4 80.0-98.0 [facility] CentralQzgoeczBMPKPTLXSU6778-27-58 09:00:00 Test Item Value Reference Range Interpretation Comments MCH (test code = MCH) 28.3 pg 27.0-31.0 [facility] CentralJituenqMGNHUEKNSH3638-49-06 09:00:00 Test Item Value Reference Range Interpretation Comments MCHC (test code = MCHC) 32.8 32.0-36.0 [facility] CentralZccebztWWQXQCJTDP4759-15-63 09:00:00 Test Item Value Reference Range Interpretation Comments RDW (test code = RDW) 14.9 11.5-14.5 [place]731-10-19 09:00:00 Test Item Value Reference Range Interpretation Comments Platelet (test code = Platelet) 353 133-450 [facility] CentralNyxvchaNVEMUYLBSI3479-14-48 09:00:00 Test Item Value Reference Range Interpretation Comments MPV (test code = MPV) 8.3 7.4-10.4 [facility]zkwxrxCUSQQVELWS5617-95-93 17:47:00 Test Item Value Reference Range Interpretation Comments Coronavirus (COVID-19) Not Detected JAVED (test code = (04/10/21 12:47 PM) Coronavirus (COVID-19) JAVED) [facility]lakeKislniaAXNQAOETYH1525-78-99 17:47:00 Test Item Value Reference Range Interpretation Comments Coronavirus (COVID-19) Not Detected JAVED (test code = (04/10/21 12:47 PM) Coronavirus (COVID-19) JAVED) [facility]lakeQrfnvvhLWIPQICCPF9756-60-22 17:47:00 Test Item Value Reference Range Interpretation Comments Coronavirus (COVID-19) Not Detected JAVED (test code = (04/10/21 12:47 PM) Coronavirus (COVID-19) JAVED) [facility]lakeOambqdcGHJCFFWPQA9974-78-88 17:47:00 Test Item Value Reference Range Interpretation Comments Coronavirus (COVID-19) Not Detected JAVED (test code = (04/10/21 12:47 PM) Coronavirus (COVID-19) JAVED) [place] [address]-10-18 17:47:00 Test Item Value Reference Range Interpretation Comments Coronavirus (COVID-19) Not Detected JAVED (test code = (04/10/21 12:47 PM) Coronavirus (COVID-19) JAVED) [place] [address]-10-18 17:47:00 Test Item Value Reference Range Interpretation Comments Coronavirus (COVID-19) Not Detected JAVED (test code = (04/10/21 12:47 PM) Coronavirus (COVID-19) JAVED) [place] [address]-10-18 17:47:00 Test Item Value Reference Range Interpretation Comments Coronavirus (COVID-19) Not Detected JAVED (test code = (04/10/21 12:47 PM) Coronavirus (COVID-19) JAVED) [place] [address]-10-18 17:47:00 Test Item Value Reference Range Interpretation Comments Coronavirus (COVID-19) Not Detected JAVED (test code = (04/10/21 12:47 PM) Coronavirus (COVID-19) JAVED) [place] [address]-10-18 17:47:00 Test Item Value Reference Range Interpretation Comments Coronavirus (COVID-19) Not Detected JAVED (test code = (04/10/21 12:47 PM) Coronavirus (COVID-19) JAVED) [place] [address]-10-18 17:47:00 Test Item Value Reference Range Interpretation Comments Coronavirus (COVID-19) Not Detected JAVED (test code = (04/10/21 12:47 PM) Coronavirus (COVID-19) JAVED) [place] [address]-10-18 17:47:00 Test Item Value Reference Range Interpretation Comments Coronavirus (COVID-19) Not Detected JAVED (test code = (04/10/21 12:47 PM) Coronavirus (COVID-19) JAVED) [place] [address]-10-18 17:47:00 Test Item Value Reference Range Interpretation Comments Coronavirus (COVID-19) Not Detected JAVED (test code = (04/10/21 12:47 PM) Coronavirus (COVID-19) JAVED) [place] [address]-10-18 17:47:00 Test Item Value Reference Range Interpretation Comments Coronavirus (COVID-19) Not Detected JAVED (test code = (04/10/21 12:47 PM) Coronavirus (COVID-19) JAVED) [place] [address]-10-18 17:47:00 Test Item Value Reference Range Interpretation Comments Coronavirus (COVID-19) Not Detected JAVED (test code = (04/10/21 12:47 PM) Coronavirus (COVID-19) JAVED) [place] [address]-10-18 17:47:00 Test Item Value Reference Range Interpretation Comments Coronavirus (COVID-19) Not Detected JAVED (test code = (04/10/21 12:47 PM) Coronavirus (COVID-19) JAVED) [place] [address]-10-18 17:47:00 Test Item Value Reference Range Interpretation Comments Coronavirus (COVID-19) Not Detected JAVED (test code = (04/10/21 12:47 PM) Coronavirus (COVID-19) JAVED) [place] [address]-10-18 17:47:00 Test Item Value Reference Range Interpretation Comments Coronavirus (COVID-19) Not Detected JAVED (test code = (04/10/21 12:47 PM) Coronavirus (COVID-19) JAVED) [place] [address]-10-18 17:47:00 Test Item Value Reference Range Interpretation Comments Coronavirus (COVID-19) Not Detected JAVED (test code = (04/10/21 12:47 PM) Coronavirus (COVID-19) JAVED) [place] [address]-10-18 17:47:00 Test Item Value Reference Range Interpretation Comments Coronavirus (COVID-19) Not Detected JAVED (test code = (04/10/21 12:47 PM) Coronavirus (COVID-19) JAVED) [place] [address]-10-18 17:47:00 Test Item Value Reference Range Interpretation Comments Coronavirus (COVID-19) Not Detected JAVED (test code = (04/10/21 12:47 PM) Coronavirus (COVID-19) JAVED) [place] [address]-10-18 17:47:00 Test Item Value Reference Range Interpretation Comments Coronavirus (COVID-19) Not Detected JAVED (test code = (04/10/21 12:47 PM) Coronavirus (COVID-19) JAVED) [place] [address]-10-18 17:47:00 Test Item Value Reference Range Interpretation Comments Coronavirus (COVID-19) Not Detected JAVED (test code = (04/10/21 12:47 PM) Coronavirus (COVID-19) JAVED) [place] [address]-10-18 17:47:00 Test Item Value Reference Range Interpretation Comments Coronavirus (COVID-19) Not Detected JAVED (test code = (04/10/21 12:47 PM) Coronavirus (COVID-19) JAVED) [place] [address]-10-18 17:47:00 Test Item Value Reference Range Interpretation Comments Coronavirus (COVID-19) Not Detected JAVED (test code = (04/10/21 12:47 PM) Coronavirus (COVID-19) JAVED) [place] [address]-10-18 17:47:00 Test Item Value Reference Range Interpretation Comments Coronavirus (COVID-19) Not Detected JAVED (test code = (04/10/21 12:47 PM) Coronavirus (COVID-19) JAVED) [place] [address]-10-18 17:47:00 Test Item Value Reference Range Interpretation Comments Coronavirus (COVID-19) Not Detected JAVED (test code = (04/10/21 12:47 PM) Coronavirus (COVID-19) JAVED) [place] [address]-10-18 17:47:00 Test Item Value Reference Range Interpretation Comments Coronavirus (COVID-19) Not Detected JAVED (test code = (04/10/21 12:47 PM) Coronavirus (COVID-19) JAVED) [place] [address]-10-18 17:47:00 Test Item Value Reference Range Interpretation Comments Coronavirus (COVID-19) Not Detected JAVED (test code = (04/10/21 12:47 PM) Coronavirus (COVID-19) JAVED) [place] [address]-10-18 17:47:00 Test Item Value Reference Range Interpretation Comments Coronavirus (COVID-19) Not Detected JAVED (test code = (04/10/21 12:47 PM) Coronavirus (COVID-19) JAVED) [place] [address]-10-18 17:47:00 Test Item Value Reference Range Interpretation Comments Coronavirus (COVID-19) Not Detected JAVED (test code = (04/10/21 12:47 PM) Coronavirus (COVID-19) JAVED) [place] [address]-10-18 17:47:00 Test Item Value Reference Range Interpretation Comments Coronavirus (COVID-19) Not Detected JAVED (test code = (04/10/21 12:47 PM) Coronavirus (COVID-19) JAVED) [place] [address]-10-18 17:47:00 Test Item Value Reference Range Interpretation Comments Coronavirus (COVID-19) Not Detected JAVED (test code = (04/10/21 12:47 PM) Coronavirus (COVID-19) JAVED) [place] [address]-10-18 17:47:00 Test Item Value Reference Range Interpretation Comments Coronavirus (COVID-19) Not Detected JAVED (test code = (04/10/21 12:47 PM) Coronavirus (COVID-19) JAVED) [place] [address]-10-18 17:47:00 Test Item Value Reference Range Interpretation Comments Coronavirus (COVID-19) Not Detected JAVED (test code = (04/10/21 12:47 PM) Coronavirus (COVID-19) JAVED) [place] [address]-10-18 17:47:00 Test Item Value Reference Range Interpretation Comments Coronavirus (COVID-19) Not Detected JAVED (test code = (04/10/21 12:47 PM) Coronavirus (COVID-19) JAVED) [place] [address]-10-18 17:47:00 Test Item Value Reference Range Interpretation Comments Coronavirus (COVID-19) Not Detected JAVED (test code = (04/10/21 12:47 PM) Coronavirus (COVID-19) JAVED) [place] [address]-10-18 17:47:00 Test Item Value Reference Range Interpretation Comments Coronavirus (COVID-19) Not Detected JAVED (test code = (04/10/21 12:47 PM) Coronavirus (COVID-19) JAVED) [place] [address]-10-18 17:47:00 Test Item Value Reference Range Interpretation Comments Coronavirus (COVID-19) Not Detected JAVED (test code = (04/10/21 12:47 PM) Coronavirus (COVID-19) JAVED) [place] [address]-10-18 17:47:00 Test Item Value Reference Range Interpretation Comments Coronavirus (COVID-19) Not Detected JAVED (test code = (04/10/21 12:47 PM) Coronavirus (COVID-19) JAVED) [place] [address]-10-18 17:47:00 Test Item Value Reference Range Interpretation Comments Coronavirus (COVID-19) Not Detected JAVED (test code = (04/10/21 12:47 PM) Coronavirus (COVID-19) JAVED) [place] 853501-10-18 09:42:00 Test Item Value Reference Range Interpretation Comments Glucose Lvl (test code = Glucose Lvl) 89 70-99 [facility]2021-10-18 09:42:00 Test Item Value Reference Range Interpretation Comments BUN (test code = BUN) 9 7-22 [place] 853501-10-18 09:42:00 Test Item Value Reference Range Interpretation Comments Creatinine Lvl (test code = Creatinine 0.54 0.50-1.40 Lvl) [facility]2021-10-18 09:42:00 Test Item Value Reference Range Interpretation Comments Sodium Lvl (test code = Sodium Lvl) 143 135-145 [facility]2021-10-18 09:42:00 Test Item Value Reference Range Interpretation Comments Potassium Lvl (test code = Potassium 4.4 3.5-5.1 Lvl) [facility]2021-10-18 09:42:00 Test Item Value Reference Range Interpretation Comments Chloride Lvl (test code = Chloride Lvl) 115 95-109 [place] 853501-10-18 09:42:00 Test Item Value Reference Range Interpretation Comments CO2 (test code = CO2) 26 24-32 [place] 853501-10-18 09:42:00 Test Item Value Reference Range Interpretation Comments AGAP (test code = AGAP) 6.4 10.0-20.0 [place] 853501-10-18 09:42:00 Test Item Value Reference Range Interpretation Comments Calcium Lvl (test code = Calcium Lvl) 8.7 8.5-10.5 [place] 853501-10-18 09:42:00 Test Item Value Reference Range Interpretation Comments eGFR (test code = eGFR) 97 [facility]2021-10-18 09:42:00 Test Item Value Reference Range Interpretation Comments Vitamin D, 25-OH, Total (test code = 20 Vitamin D, 25-OH, Total) [facility] [id number] 09:42:00 Test Item Value Reference Range Interpretation Comments PTH Intact (test code = PTH Intact) 70.6 18.4-80.1 [facility]2021-10-18 09:42:00 Test Item Value Reference Range Interpretation Comments Glucose Lvl (test code = Glucose Lvl) 89 70-99 [facility]2021-10-18 09:42:00 Test Item Value Reference Range Interpretation Comments BUN (test code = BUN) 9 7-22 [place] 853501-10-18 09:42:00 Test Item Value Reference Range Interpretation Comments Creatinine Lvl (test code = Creatinine 0.54 0.50-1.40 Lvl) [facility]2021-10-18 09:42:00 Test Item Value Reference Range Interpretation Comments Sodium Lvl (test code = Sodium Lvl) 143 135-145 [facility]2021-10-18 09:42:00 Test Item Value Reference Range Interpretation Comments Potassium Lvl (test code = Potassium 4.4 3.5-5.1 Lvl) [facility]2021-10-18 09:42:00 Test Item Value Reference Range Interpretation Comments Chloride Lvl (test code = Chloride Lvl) 115 95-109 [facility]2021-10-18 09:42:00 Test Item Value Reference Range Interpretation Comments CO2 (test code = CO2) 26 24-32 [facility]2021-10-18 09:42:00 Test Item Value Reference Range Interpretation Comments AGAP (test code = AGAP) 6.4 10.0-20.0 [place] 853501-10-18 09:42:00 Test Item Value Reference Range Interpretation Comments Calcium Lvl (test code = Calcium Lvl) 8.7 8.5-10.5 [facility]2021-10-18 09:42:00 Test Item Value Reference Range Interpretation Comments eGFR (test code = eGFR) 97 [facility]2021-10-18 09:42:00 Test Item Value Reference Range Interpretation Comments Vitamin D, 25-OH, Total (test code = 20 Vitamin D, 25-OH, Total) [facility] [id number] 09:42:00 Test Item Value Reference Range Interpretation Comments PTH Intact (test code = PTH Intact) 70.6 18.4-80.1 [place] 853501-10-18 09:42:00 Test Item Value Reference Range Interpretation Comments Glucose Lvl (test code = Glucose Lvl) 89 70-99 [facility]2021-10-18 09:42:00 Test Item Value Reference Range Interpretation Comments BUN (test code = BUN) 9 7-22 [place] 853501-10-18 09:42:00 Test Item Value Reference Range Interpretation Comments Creatinine Lvl (test code = Creatinine 0.54 0.50-1.40 Lvl) [place]3501-10-18 09:42:00 Test Item Value Reference Range Interpretation Comments Sodium Lvl (test code = Sodium Lvl) 143 135-145 [facility]2021-10-18 09:42:00 Test Item Value Reference Range Interpretation Comments Potassium Lvl (test code = Potassium 4.4 3.5-5.1 Lvl) [place]3501-10-18 09:42:00 Test Item Value Reference Range Interpretation Comments Chloride Lvl (test code = Chloride Lvl) 115 95-109 [place] 853501-10-18 09:42:00 Test Item Value Reference Range Interpretation Comments CO2 (test code = CO2) 26 24-32 [place] 853501-10-18 09:42:00 Test Item Value Reference Range Interpretation Comments AGAP (test code = AGAP) 6.4 10.0-20.0 [place] 853501-10-18 09:42:00 Test Item Value Reference Range Interpretation Comments Calcium Lvl (test code = Calcium Lvl) 8.7 8.5-10.5 [place] 853501-10-18 09:42:00 Test Item Value Reference Range Interpretation Comments eGFR (test code = eGFR) 97 [place] 853501-10-18 09:42:00 Test Item Value Reference Range Interpretation Comments Vitamin D, 25-OH, Total (test code = 20 Vitamin D, 25-OH, Total) [id number] 09:42:00 Test Item Value Reference Range Interpretation Comments PTH Intact (test code = PTH Intact) 70.6 18.4-80.1 [place] [address]3501-10-18 09:42:00 Test Item Value Reference Range Interpretation Comments Glucose Lvl (test code = Glucose Lvl) 89 70-99 [place] 853501-10-18 09:42:00 Test Item Value Reference Range Interpretation Comments BUN (test code = BUN) 9 7-22 [place] [address]-10-18 09:42:00 Test Item Value Reference Range Interpretation Comments Creatinine Lvl (test code = Creatinine 0.54 0.50-1.40 Lvl) [place] 853501-10-18 09:42:00 Test Item Value Reference Range Interpretation Comments Sodium Lvl (test code = Sodium Lvl) 143 135-145 [place] 853501-10-18 09:42:00 Test Item Value Reference Range Interpretation Comments Potassium Lvl (test code = Potassium 4.4 3.5-5.1 Lvl) [place] 853501-10-18 09:42:00 Test Item Value Reference Range Interpretation Comments Chloride Lvl (test code = Chloride Lvl) 115 95-109 [place] 853501-10-18 09:42:00 Test Item Value Reference Range Interpretation Comments CO2 (test code = CO2) 26 24-32 [place] 853501-10-18 09:42:00 Test Item Value Reference Range Interpretation Comments AGAP (test code = AGAP) 6.4 10.0-20.0 [place] 853501-10-18 09:42:00 Test Item Value Reference Range Interpretation Comments Calcium Lvl (test code = Calcium Lvl) 8.7 8.5-10.5 [place] 853501-10-18 09:42:00 Test Item Value Reference Range Interpretation Comments eGFR (test code = eGFR) 97 [place] 853501-10-18 09:42:00 Test Item Value Reference Range Interpretation Comments Vitamin D, 25-OH, Total (test code = 20 Vitamin D, 25-OH, Total) [facility] [id number] 09:42:00 Test Item Value Reference Range Interpretation Comments PTH Intact (test code = PTH Intact) 70.6 18.4-80.1 [facility]2021-10-18 09:42:00 Test Item Value Reference Range Interpretation Comments Glucose Lvl (test code = Glucose Lvl) 89 70-99 [place] 853501-10-18 09:42:00 Test Item Value Reference Range Interpretation Comments BUN (test code = BUN) 9 7-22 [facility]2021-10-18 09:42:00 Test Item Value Reference Range Interpretation Comments Creatinine Lvl (test code = Creatinine 0.54 0.50-1.40 Lvl) [facility]2021-10-18 09:42:00 Test Item Value Reference Range Interpretation Comments Sodium Lvl (test code = Sodium Lvl) 143 135-145 [facility]2021-10-18 09:42:00 Test Item Value Reference Range Interpretation Comments Potassium Lvl (test code = Potassium 4.4 3.5-5.1 Lvl) [facility]2021-10-18 09:42:00 Test Item Value Reference Range Interpretation Comments Chloride Lvl (test code = Chloride Lvl) 115 95-109 [facility]2021-10-18 09:42:00 Test Item Value Reference Range Interpretation Comments CO2 (test code = CO2) 26 24-32 [facility]2021-10-18 09:42:00 Test Item Value Reference Range Interpretation Comments AGAP (test code = AGAP) 6.4 10.0-20.0 [facility]2021-10-18 09:42:00 Test Item Value Reference Range Interpretation Comments Calcium Lvl (test code = Calcium Lvl) 8.7 8.5-10.5 [facility]2021-10-18 09:42:00 Test Item Value Reference Range Interpretation Comments eGFR (test code = eGFR) 97 [facility]2021-10-18 09:42:00 Test Item Value Reference Range Interpretation Comments Vitamin D, 25-OH, Total (test code = 20 Vitamin D, 25-OH, Total) [facility] [id number] 09:42:00 Test Item Value Reference Range Interpretation Comments PTH Intact (test code = PTH Intact) 70.6 18.4-80.1 [facility]2021-10-18 09:42:00 Test Item Value Reference Range Interpretation Comments Glucose Lvl (test code = Glucose Lvl) 89 70-99 [place] 853501-10-18 09:42:00 Test Item Value Reference Range Interpretation Comments BUN (test code = BUN) 9 7-22 [facility]2021-10-18 09:42:00 Test Item Value Reference Range Interpretation Comments Creatinine Lvl (test code = Creatinine 0.54 0.50-1.40 Lvl) [facility]2021-10-18 09:42:00 Test Item Value Reference Range Interpretation Comments Sodium Lvl (test code = Sodium Lvl) 143 135-145 [facility]2021-10-18 09:42:00 Test Item Value Reference Range Interpretation Comments Potassium Lvl (test code = Potassium 4.4 3.5-5.1 Lvl) [facility]2021-10-18 09:42:00 Test Item Value Reference Range Interpretation Comments Chloride Lvl (test code = Chloride Lvl) 115 95-109 [facility]2021-10-18 09:42:00 Test Item Value Reference Range Interpretation Comments CO2 (test code = CO2) 26 24-32 [facility]2021-10-18 09:42:00 Test Item Value Reference Range Interpretation Comments AGAP (test code = AGAP) 6.4 10.0-20.0 [facility]2021-10-18 09:42:00 Test Item Value Reference Range Interpretation Comments Calcium Lvl (test code = Calcium Lvl) 8.7 8.5-10.5 [facility]2021-10-18 09:42:00 Test Item Value Reference Range Interpretation Comments eGFR (test code = eGFR) 97 [facility]2021-10-18 09:42:00 Test Item Value Reference Range Interpretation Comments Vitamin D, 25-OH, Total (test code = 20 Vitamin D, 25-OH, Total) [facility] [id number] 09:42:00 Test Item Value Reference Range Interpretation Comments PTH Intact (test code = PTH Intact) 70.6 18.4-80.1 [facility]2021-10-18 09:42:00 Test Item Value Reference Range Interpretation Comments Glucose Lvl (test code = Glucose Lvl) 89 70-99 [facility]2021-10-18 09:42:00 Test Item Value Reference Range Interpretation Comments BUN (test code = BUN) 9 7-22 [facility]2021-10-18 09:42:00 Test Item Value Reference Range Interpretation Comments Creatinine Lvl (test code = Creatinine 0.54 0.50-1.40 Lvl) [facility]2021-10-18 09:42:00 Test Item Value Reference Range Interpretation Comments Sodium Lvl (test code = Sodium Lvl) 143 135-145 [facility]2021-10-18 09:42:00 Test Item Value Reference Range Interpretation Comments Potassium Lvl (test code = Potassium 4.4 3.5-5.1 Lvl) [facility]2021-10-18 09:42:00 Test Item Value Reference Range Interpretation Comments Chloride Lvl (test code = Chloride Lvl) 115 95-109 [facility]2021-10-18 09:42:00 Test Item Value Reference Range Interpretation Comments CO2 (test code = CO2) 26 24-32 [facility]2021-10-18 09:42:00 Test Item Value Reference Range Interpretation Comments AGAP (test code = AGAP) 6.4 10.0-20.0 [facility]2021-10-18 09:42:00 Test Item Value Reference Range Interpretation Comments Calcium Lvl (test code = Calcium Lvl) 8.7 8.5-10.5 [facility]2021-10-18 09:42:00 Test Item Value Reference Range Interpretation Comments eGFR (test code = eGFR) 97 [facility]2021-10-18 09:42:00 Test Item Value Reference Range Interpretation Comments Vitamin D, 25-OH, Total (test code = 20 Vitamin D, 25-OH, Total) [facility] [id number] 09:42:00 Test Item Value Reference Range Interpretation Comments PTH Intact (test code = PTH Intact) 70.6 18.4-80.1 [facility]2021-10-18 09:42:00 Test Item Value Reference Range Interpretation Comments Glucose Lvl (test code = Glucose Lvl) 89 70-99 [facility]2021-10-18 09:42:00 Test Item Value Reference Range Interpretation Comments BUN (test code = BUN) 9 - [facility]2021-10-18 09:42:00 Test Item Value Reference Range Interpretation Comments Creatinine Lvl (test code = Creatinine 0.54 0.50-1.40 Lvl) [facility]2021-10-18 09:42:00 Test Item Value Reference Range Interpretation Comments Sodium Lvl (test code = Sodium Lvl) 143 135-145 [facility]Style[facility] [id number] 09:42:00 Test Item Value Reference Range Interpretation Comments Potassium Lvl (test code = Potassium 4.4 3.5-5.1 Lvl) [facility]2021-10-18 09:42:00 Test Item Value Reference Range Interpretation Comments Chloride Lvl (test code = Chloride Lvl) 115 95-109 [facility]2021-10-18 09:42:00 Test Item Value Reference Range Interpretation Comments CO2 (test code = CO2) 26 24-32 [facility]2021-10-18 09:42:00 Test Item Value Reference Range Interpretation Comments AGAP (test code = AGAP) 6.4 10.0-20.0 [facility] [id number] 09:42:00 Test Item Value Reference Range Interpretation Comments Calcium Lvl (test code = Calcium Lvl) 8.7 8.5-10.5 [facility]2021-10-18 09:42:00 Test Item Value Reference Range Interpretation Comments eGFR (test code = eGFR) 97 [facility]2021-10-18 09:42:00 Test Item Value Reference Range Interpretation Comments Vitamin D, 25-OH, Total (test code = 20 Vitamin D, 25-OH, Total) [facility] [id number] 09:42:00 Test Item Value Reference Range Interpretation Comments PTH Intact (test code = PTH Intact) 70.6 18.4-80.1 [facility]2021-10-18 09:42:00 Test Item Value Reference Range Interpretation Comments Glucose Lvl (test code = Glucose Lvl) 89 70-99 [facility] [id number] 09:42:00 Test Item Value Reference Range Interpretation Comments BUN (test code = BUN) 9 - [facility]2021-10-18 09:42:00 Test Item Value Reference Range Interpretation Comments Creatinine Lvl (test code = Creatinine 0.54 0.50-1.40 Lvl) [facility]2021-10-18 09:42:00 Test Item Value Reference Range Interpretation Comments Sodium Lvl (test code = Sodium Lvl) 143 135-145 [facility]2021-10-18 09:42:00 Test Item Value Reference Range Interpretation Comments Potassium Lvl (test code = Potassium 4.4 3.5-5.1 Lvl) [facility]2021-10-18 09:42:00 Test Item Value Reference Range Interpretation Comments Chloride Lvl (test code = Chloride Lvl) 115 95-109 [facility]2021-10-18 09:42:00 Test Item Value Reference Range Interpretation Comments CO2 (test code = CO2) 26 24-32 [facility]2021-10-18 09:42:00 Test Item Value Reference Range Interpretation Comments AGAP (test code = AGAP) 6.4 10.0-20.0 [facility]2021-10-18 09:42:00 Test Item Value Reference Range Interpretation Comments Calcium Lvl (test code = Calcium Lvl) 8.7 8.5-10.5 [facility]2021-10-18 09:42:00 Test Item Value Reference Range Interpretation Comments eGFR (test code = eGFR) 97 [facility]2021-10-18 09:42:00 Test Item Value Reference Range Interpretation Comments Vitamin D, 25-OH, Total (test code = 20 Vitamin D, 25-OH, Total) [facility] [id number] 09:42:00 Test Item Value Reference Range Interpretation Comments PTH Intact (test code = PTH Intact) 70.6 18.4-80.1 [facility]2021-10-18 09:42:00 Test Item Value Reference Range Interpretation Comments Glucose Lvl (test code = Glucose Lvl) 89 70-99 [facility]2021-10-18 09:42:00 Test Item Value Reference Range Interpretation Comments BUN (test code = BUN) 9 - [facility]2021-10-18 09:42:00 Test Item Value Reference Range Interpretation Comments Creatinine Lvl (test code = Creatinine 0.54 0.50-1.40 Lvl) [facility]2021-10-18 09:42:00 Test Item Value Reference Range Interpretation Comments Sodium Lvl (test code = Sodium Lvl) 143 135-145 [facility]2021-10-18 09:42:00 Test Item Value Reference Range Interpretation Comments Potassium Lvl (test code = Potassium 4.4 3.5-5.1 Lvl) [facility]2021-10-18 09:42:00 Test Item Value Reference Range Interpretation Comments Chloride Lvl (test code = Chloride Lvl) 115 95-109 [facility]2021-10-18 09:42:00 Test Item Value Reference Range Interpretation Comments CO2 (test code = CO2) 26 24-32 [facility]2021-10-18 09:42:00 Test Item Value Reference Range Interpretation Comments AGAP (test code = AGAP) 6.4 10.0-20.0 [facility]2021-10-18 09:42:00 Test Item Value Reference Range Interpretation Comments Calcium Lvl (test code = Calcium Lvl) 8.7 8.5-10.5 [facility]2021-10-18 09:42:00 Test Item Value Reference Range Interpretation Comments eGFR (test code = eGFR) 97 [facility]2021-10-18 09:42:00 Test Item Value Reference Range Interpretation Comments Vitamin D, 25-OH, Total (test code = 20 Vitamin D, 25-OH, Total) [facility] [id number] 09:42:00 Test Item Value Reference Range Interpretation Comments PTH Intact (test code = PTH Intact) 70.6 18.4-80.1 [facility]2021-10-18 09:42:00 Test Item Value Reference Range Interpretation Comments Glucose Lvl (test code = Glucose Lvl) 89 70-99 [facility]2021-10-18 09:42:00 Test Item Value Reference Range Interpretation Comments BUN (test code = BUN) 9 7-22 [facility]2021-10-18 09:42:00 Test Item Value Reference Range Interpretation Comments Creatinine Lvl (test code = Creatinine 0.54 0.50-1.40 Lvl) [place] 853501-10-18 09:42:00 Test Item Value Reference Range Interpretation Comments Sodium Lvl (test code = Sodium Lvl) 143 135-145 [facility]2021-10-18 09:42:00 Test Item Value Reference Range Interpretation Comments Potassium Lvl (test code = Potassium 4.4 3.5-5.1 Lvl) [facility]2021-10-18 09:42:00 Test Item Value Reference Range Interpretation Comments Chloride Lvl (test code = Chloride Lvl) 115 95-109 [facility]2021-10-18 09:42:00 Test Item Value Reference Range Interpretation Comments CO2 (test code = CO2) 26 24-32 [facility]2021-10-18 09:42:00 Test Item Value Reference Range Interpretation Comments AGAP (test code = AGAP) 6.4 10.0-20.0 [facility]2021-10-18 09:42:00 Test Item Value Reference Range Interpretation Comments Calcium Lvl (test code = Calcium Lvl) 8.7 8.5-10.5 [facility]2021-10-18 09:42:00 Test Item Value Reference Range Interpretation Comments eGFR (test code = eGFR) 97 [facility]2021-10-18 09:42:00 Test Item Value Reference Range Interpretation Comments Vitamin D, 25-OH, Total (test code = 20 Vitamin D, 25-OH, Total) [facility] [id number] 09:42:00 Test Item Value Reference Range Interpretation Comments PTH Intact (test code = PTH Intact) 70.6 18.4-80.1 [facility]2021-10-18 09:42:00 Test Item Value Reference Range Interpretation Comments Glucose Lvl (test code = Glucose Lvl) 89 70-99 [facility]2021-10-18 09:42:00 Test Item Value Reference Range Interpretation Comments BUN (test code = BUN) 9 7-22 [facility]2021-10-18 09:42:00 Test Item Value Reference Range Interpretation Comments Creatinine Lvl (test code = Creatinine 0.54 0.50-1.40 Lvl) [facility]2021-10-18 09:42:00 Test Item Value Reference Range Interpretation Comments Sodium Lvl (test code = Sodium Lvl) 143 135-145 [facility]2021-10-18 09:42:00 Test Item Value Reference Range Interpretation Comments Potassium Lvl (test code = Potassium 4.4 3.5-5.1 Lvl) [facility]2021-10-18 09:42:00 Test Item Value Reference Range Interpretation Comments Chloride Lvl (test code = Chloride Lvl) 115 95-109 [facility]2021-10-18 09:42:00 Test Item Value Reference Range Interpretation Comments CO2 (test code = CO2) 26 24-32 [facility]2021-10-18 09:42:00 Test Item Value Reference Range Interpretation Comments AGAP (test code = AGAP) 6.4 10.0-20.0 [place] 853501-10-18 09:42:00 Test Item Value Reference Range Interpretation Comments Calcium Lvl (test code = Calcium Lvl) 8.7 8.5-10.5 [facility]2021-10-18 09:42:00 Test Item Value Reference Range Interpretation Comments eGFR (test code = eGFR) 97 [facility]2021-10-18 09:42:00 Test Item Value Reference Range Interpretation Comments Vitamin D, 25-OH, Total (test code = 20 Vitamin D, 25-OH, Total) [facility] [id number] 09:42:00 Test Item Value Reference Range Interpretation Comments PTH Intact (test code = PTH Intact) 70.6 18.4-80.1 [facility]2021-10-18 09:42:00 Test Item Value Reference Range Interpretation Comments Glucose Lvl (test code = Glucose Lvl) 89 70-99 [facility]2021-10-18 09:42:00 Test Item Value Reference Range Interpretation Comments BUN (test code = BUN) 9 7-22 [facility]2021-10-18 09:42:00 Test Item Value Reference Range Interpretation Comments Creatinine Lvl (test code = Creatinine 0.54 0.50-1.40 Lvl) [facility]2021-10-18 09:42:00 Test Item Value Reference Range Interpretation Comments Sodium Lvl (test code = Sodium Lvl) 143 135-145 [facility]2021-10-18 09:42:00 Test Item Value Reference Range Interpretation Comments Potassium Lvl (test code = Potassium 4.4 3.5-5.1 Lvl) [facility]2021-10-18 09:42:00 Test Item Value Reference Range Interpretation Comments Chloride Lvl (test code = Chloride Lvl) 115 95-109 [facility]2021-10-18 09:42:00 Test Item Value Reference Range Interpretation Comments CO2 (test code = CO2) 26 24-32 [facility]2021-10-18 09:42:00 Test Item Value Reference Range Interpretation Comments AGAP (test code = AGAP) 6.4 10.0-20.0 [place] 853501-10-18 09:42:00 Test Item Value Reference Range Interpretation Comments Calcium Lvl (test code = Calcium Lvl) 8.7 8.5-10.5 [facility]2021-10-18 09:42:00 Test Item Value Reference Range Interpretation Comments eGFR (test code = eGFR) 97 [facility]2021-10-18 09:42:00 Test Item Value Reference Range Interpretation Comments Vitamin D, 25-OH, Total (test code = 20 Vitamin D, 25-OH, Total) [facility] [id number] 09:42:00 Test Item Value Reference Range Interpretation Comments PTH Intact (test code = PTH Intact) 70.6 18.4-80.1 [facility]2021-10-18 09:42:00 Test Item Value Reference Range Interpretation Comments Glucose Lvl (test code = Glucose Lvl) 89 70-99 [facility]2021-10-18 09:42:00 Test Item Value Reference Range Interpretation Comments BUN (test code = BUN) 9 7-22 [place] 853501-10-18 09:42:00 Test Item Value Reference Range Interpretation Comments Creatinine Lvl (test code = Creatinine 0.54 0.50-1.40 Lvl) [facility]2021-10-18 09:42:00 Test Item Value Reference Range Interpretation Comments Sodium Lvl (test code = Sodium Lvl) 143 135-145 [facility]2021-10-18 09:42:00 Test Item Value Reference Range Interpretation Comments Potassium Lvl (test code = Potassium 4.4 3.5-5.1 Lvl) [facility]2021-10-18 09:42:00 Test Item Value Reference Range Interpretation Comments Chloride Lvl (test code = Chloride Lvl) 115 95-109 [place] 853501-10-18 09:42:00 Test Item Value Reference Range Interpretation Comments CO2 (test code = CO2) 26 24-32 [place] 853501-10-18 09:42:00 Test Item Value Reference Range Interpretation Comments AGAP (test code = AGAP) 6.4 10.0-20.0 [place] 853501-10-18 09:42:00 Test Item Value Reference Range Interpretation Comments Calcium Lvl (test code = Calcium Lvl) 8.7 8.5-10.5 [place] 853501-10-18 09:42:00 Test Item Value Reference Range Interpretation Comments eGFR (test code = eGFR) 97 [facility]2021-10-18 09:42:00 Test Item Value Reference Range Interpretation Comments Vitamin D, 25-OH, Total (test code = 20 Vitamin D, 25-OH, Total) [facility] [id number] 09:42:00 Test Item Value Reference Range Interpretation Comments PTH Intact (test code = PTH Intact) 70.6 18.4-80.1 [facility]2021-10-18 09:42:00 Test Item Value Reference Range Interpretation Comments Glucose Lvl (test code = Glucose Lvl) 89 70-99 [place] 853501-10-18 09:42:00 Test Item Value Reference Range Interpretation Comments BUN (test code = BUN) 9 7-22 [place] 853501-10-18 09:42:00 Test Item Value Reference Range Interpretation Comments Creatinine Lvl (test code = Creatinine 0.54 0.50-1.40 Lvl) [place] 853501-10-18 09:42:00 Test Item Value Reference Range Interpretation Comments Sodium Lvl (test code = Sodium Lvl) 143 135-145 [facility]2021-10-18 09:42:00 Test Item Value Reference Range Interpretation Comments Potassium Lvl (test code = Potassium 4.4 3.5-5.1 Lvl) [facility]2021-10-18 09:42:00 Test Item Value Reference Range Interpretation Comments Chloride Lvl (test code = Chloride Lvl) 115 95-109 [place] 853501-10-18 09:42:00 Test Item Value Reference Range Interpretation Comments CO2 (test code = CO2) 26 24-32 [place] 853501-10-18 09:42:00 Test Item Value Reference Range Interpretation Comments AGAP (test code = AGAP) 6.4 10.0-20.0 [facility]2021-10-18 09:42:00 Test Item Value Reference Range Interpretation Comments Calcium Lvl (test code = Calcium Lvl) 8.7 8.5-10.5 [facility]2021-10-18 09:42:00 Test Item Value Reference Range Interpretation Comments eGFR (test code = eGFR) 97 [facility]2021-10-18 09:42:00 Test Item Value Reference Range Interpretation Comments Vitamin D, 25-OH, Total (test code = 20 Vitamin D, 25-OH, Total) [facility] [id number] 09:42:00 Test Item Value Reference Range Interpretation Comments PTH Intact (test code = PTH Intact) 70.6 18.4-80.1 [facility]2021-10-18 09:42:00 Test Item Value Reference Range Interpretation Comments Glucose Lvl (test code = Glucose Lvl) 89 70-99 [facility]2021-10-18 09:42:00 Test Item Value Reference Range Interpretation Comments BUN (test code = BUN) 9 7-22 [place] 853501-10-18 09:42:00 Test Item Value Reference Range Interpretation Comments Creatinine Lvl (test code = Creatinine 0.54 0.50-1.40 Lvl) [facility]2021-10-18 09:42:00 Test Item Value Reference Range Interpretation Comments Sodium Lvl (test code = Sodium Lvl) 143 135-145 [facility]2021-10-18 09:42:00 Test Item Value Reference Range Interpretation Comments Potassium Lvl (test code = Potassium 4.4 3.5-5.1 Lvl) [facility]2021-10-18 09:42:00 Test Item Value Reference Range Interpretation Comments Chloride Lvl (test code = Chloride Lvl) 115 95-109 [place] 853501-10-18 09:42:00 Test Item Value Reference Range Interpretation Comments CO2 (test code = CO2) 26 24-32 [place] 853501-10-18 09:42:00 Test Item Value Reference Range Interpretation Comments AGAP (test code = AGAP) 6.4 10.0-20.0 [facility]2021-10-18 09:42:00 Test Item Value Reference Range Interpretation Comments Calcium Lvl (test code = Calcium Lvl) 8.7 8.5-10.5 [facility]2021-10-18 09:42:00 Test Item Value Reference Range Interpretation Comments eGFR (test code = eGFR) 97 [place] 853501-10-18 09:42:00 Test Item Value Reference Range Interpretation Comments Vitamin D, 25-OH, Total (test code = 20 Vitamin D, 25-OH, Total) [facility] [id number] 09:42:00 Test Item Value Reference Range Interpretation Comments PTH Intact (test code = PTH Intact) 70.6 18.4-80.1 [facility]2021-10-18 09:42:00 Test Item Value Reference Range Interpretation Comments Glucose Lvl (test code = Glucose Lvl) 89 70-99 [place] 853501-10-18 09:42:00 Test Item Value Reference Range Interpretation Comments BUN (test code = BUN) 9 7-22 [place] 853501-10-18 09:42:00 Test Item Value Reference Range Interpretation Comments Creatinine Lvl (test code = Creatinine 0.54 0.50-1.40 Lvl) [facility]2021-10-18 09:42:00 Test Item Value Reference Range Interpretation Comments Sodium Lvl (test code = Sodium Lvl) 143 135-145 [facility]2021-10-18 09:42:00 Test Item Value Reference Range Interpretation Comments Potassium Lvl (test code = Potassium 4.4 3.5-5.1 Lvl) [facility]2021-10-18 09:42:00 Test Item Value Reference Range Interpretation Comments Chloride Lvl (test code = Chloride Lvl) 115 95-109 [place] 853501-10-18 09:42:00 Test Item Value Reference Range Interpretation Comments CO2 (test code = CO2) 26 24-32 [facility]2021-10-18 09:42:00 Test Item Value Reference Range Interpretation Comments AGAP (test code = AGAP) 6.4 10.0-20.0 [facility]2021-10-18 09:42:00 Test Item Value Reference Range Interpretation Comments Calcium Lvl (test code = Calcium Lvl) 8.7 8.5-10.5 [facility]2021-10-18 09:42:00 Test Item Value Reference Range Interpretation Comments eGFR (test code = eGFR) 97 [facility]2021-10-18 09:42:00 Test Item Value Reference Range Interpretation Comments Vitamin D, 25-OH, Total (test code = 20 Vitamin D, 25-OH, Total) [facility] [id number] 09:42:00 Test Item Value Reference Range Interpretation Comments PTH Intact (test code = PTH Intact) 70.6 18.4-80.1 [facility]2021-10-18 09:42:00 Test Item Value Reference Range Interpretation Comments Glucose Lvl (test code = Glucose Lvl) 89 70-99 [facility]2021-10-18 09:42:00 Test Item Value Reference Range Interpretation Comments BUN (test code = BUN) 9 7-22 [facility]2021-10-18 09:42:00 Test Item Value Reference Range Interpretation Comments Creatinine Lvl (test code = Creatinine 0.54 0.50-1.40 Lvl) [facility]2021-10-18 09:42:00 Test Item Value Reference Range Interpretation Comments Sodium Lvl (test code = Sodium Lvl) 143 135-145 [facility]2021-10-18 09:42:00 Test Item Value Reference Range Interpretation Comments Potassium Lvl (test code = Potassium 4.4 3.5-5.1 Lvl) [facility]2021-10-18 09:42:00 Test Item Value Reference Range Interpretation Comments Chloride Lvl (test code = Chloride Lvl) 115 95-109 [facility]2021-10-18 09:42:00 Test Item Value Reference Range Interpretation Comments CO2 (test code = CO2) 26 -32 [facility]2021-10-18 09:42:00 Test Item Value Reference Range Interpretation Comments AGAP (test code = AGAP) 6.4 10.0-20.0 [facility]2021-10-18 09:42:00 Test Item Value Reference Range Interpretation Comments Calcium Lvl (test code = Calcium Lvl) 8.7 8.5-10.5 [facility]2021-10-18 09:42:00 Test Item Value Reference Range Interpretation Comments eGFR (test code = eGFR) 97 [facility]2021-10-18 09:42:00 Test Item Value Reference Range Interpretation Comments Vitamin D, 25-OH, Total (test code = 20 Vitamin D, 25-OH, Total) [facility] [id number] 09:42:00 Test Item Value Reference Range Interpretation Comments PTH Intact (test code = PTH Intact) 70.6 18.4-80.1 [facility]2021-10-18 09:42:00 Test Item Value Reference Range Interpretation Comments Glucose Lvl (test code = Glucose Lvl) 89 70-99 [facility]2021-10-18 09:42:00 Test Item Value Reference Range Interpretation Comments BUN (test code = BUN) 9 7-22 [facility]2021-10-18 09:42:00 Test Item Value Reference Range Interpretation Comments Creatinine Lvl (test code = Creatinine 0.54 0.50-1.40 Lvl) [facility]2021-10-18 09:42:00 Test Item Value Reference Range Interpretation Comments Sodium Lvl (test code = Sodium Lvl) 143 135-145 [facility]2021-10-18 09:42:00 Test Item Value Reference Range Interpretation Comments Potassium Lvl (test code = Potassium 4.4 3.5-5.1 Lvl) [facility]2021-10-18 09:42:00 Test Item Value Reference Range Interpretation Comments Chloride Lvl (test code = Chloride Lvl) 115 95-109 [facility]2021-10-18 09:42:00 Test Item Value Reference Range Interpretation Comments CO2 (test code = CO2) 26 24-32 [place] 853501-10-18 09:42:00 Test Item Value Reference Range Interpretation Comments AGAP (test code = AGAP) 6.4 10.0-20.0 [place] 853501-10-18 09:42:00 Test Item Value Reference Range Interpretation Comments Calcium Lvl (test code = Calcium Lvl) 8.7 8.5-10.5 [place] 853501-10-18 09:42:00 Test Item Value Reference Range Interpretation Comments eGFR (test code = eGFR) 97 [facility]2021-10-18 09:42:00 Test Item Value Reference Range Interpretation Comments Vitamin D, 25-OH, Total (test code = 20 Vitamin D, 25-OH, Total) [facility] [id number] 09:42:00 Test Item Value Reference Range Interpretation Comments PTH Intact (test code = PTH Intact) 70.6 18.4-80.1 [facility]2021-10-18 09:42:00 Test Item Value Reference Range Interpretation Comments Glucose Lvl (test code = Glucose Lvl) 89 70-99 [place] 853501-10-18 09:42:00 Test Item Value Reference Range Interpretation Comments BUN (test code = BUN) 9 7-22 [facility]2021-10-18 09:42:00 Test Item Value Reference Range Interpretation Comments Creatinine Lvl (test code = Creatinine 0.54 0.50-1.40 Lvl) [facility]2021-10-18 09:42:00 Test Item Value Reference Range Interpretation Comments Sodium Lvl (test code = Sodium Lvl) 143 135-145 [facility]2021-10-18 09:42:00 Test Item Value Reference Range Interpretation Comments Potassium Lvl (test code = Potassium 4.4 3.5-5.1 Lvl) [facility]2021-10-18 09:42:00 Test Item Value Reference Range Interpretation Comments Chloride Lvl (test code = Chloride Lvl) 115 95-109 [place] 853501-10-18 09:42:00 Test Item Value Reference Range Interpretation Comments CO2 (test code = CO2) 26 24-32 [place] 853501-10-18 09:42:00 Test Item Value Reference Range Interpretation Comments AGAP (test code = AGAP) 6.4 10.0-20.0 [facility]2021-10-18 09:42:00 Test Item Value Reference Range Interpretation Comments Calcium Lvl (test code = Calcium Lvl) 8.7 8.5-10.5 [place] 853501-10-18 09:42:00 Test Item Value Reference Range Interpretation Comments eGFR (test code = eGFR) 97 [facility]2021-10-18 09:42:00 Test Item Value Reference Range Interpretation Comments Vitamin D, 25-OH, Total (test code = 20 Vitamin D, 25-OH, Total) [facility] [id number] 09:42:00 Test Item Value Reference Range Interpretation Comments PTH Intact (test code = PTH Intact) 70.6 18.4-80.1 [facility]2021-10-18 09:42:00 Test Item Value Reference Range Interpretation Comments Glucose Lvl (test code = Glucose Lvl) 89 70-99 [facility]2021-10-18 09:42:00 Test Item Value Reference Range Interpretation Comments BUN (test code = BUN) 9 7-22 [facility]2021-10-18 09:42:00 Test Item Value Reference Range Interpretation Comments Creatinine Lvl (test code = Creatinine 0.54 0.50-1.40 Lvl) [facility]2021-10-18 09:42:00 Test Item Value Reference Range Interpretation Comments Sodium Lvl (test code = Sodium Lvl) 143 135-145 [facility]2021-10-18 09:42:00 Test Item Value Reference Range Interpretation Comments Potassium Lvl (test code = Potassium 4.4 3.5-5.1 Lvl) [facility]2021-10-18 09:42:00 Test Item Value Reference Range Interpretation Comments Chloride Lvl (test code = Chloride Lvl) 115 95-109 [facility]2021-10-18 09:42:00 Test Item Value Reference Range Interpretation Comments CO2 (test code = CO2) 26 24-32 [facility]2021-10-18 09:42:00 Test Item Value Reference Range Interpretation Comments AGAP (test code = AGAP) 6.4 10.0-20.0 [facility]2021-10-18 09:42:00 Test Item Value Reference Range Interpretation Comments Calcium Lvl (test code = Calcium Lvl) 8.7 8.5-10.5 [place] 853501-10-18 09:42:00 Test Item Value Reference Range Interpretation Comments eGFR (test code = eGFR) 97 [place] 853501-10-18 09:42:00 Test Item Value Reference Range Interpretation Comments Vitamin D, 25-OH, Total (test code = 20 Vitamin D, 25-OH, Total) [facility] [id number] 09:42:00 Test Item Value Reference Range Interpretation Comments PTH Intact (test code = PTH Intact) 70.6 18.4-80.1 [facility]2021-10-18 09:42:00 Test Item Value Reference Range Interpretation Comments Glucose Lvl (test code = Glucose Lvl) 89 70-99 [place] 853501-10-18 09:42:00 Test Item Value Reference Range Interpretation Comments BUN (test code = BUN) 9 7-22 [place] 853501-10-18 09:42:00 Test Item Value Reference Range Interpretation Comments Creatinine Lvl (test code = Creatinine 0.54 0.50-1.40 Lvl) [facility]2021-10-18 09:42:00 Test Item Value Reference Range Interpretation Comments Sodium Lvl (test code = Sodium Lvl) 143 135-145 [facility]2021-10-18 09:42:00 Test Item Value Reference Range Interpretation Comments Potassium Lvl (test code = Potassium 4.4 3.5-5.1 Lvl) [place] 853501-10-18 09:42:00 Test Item Value Reference Range Interpretation Comments Chloride Lvl (test code = Chloride Lvl) 115 95-109 [facility]2021-10-18 09:42:00 Test Item Value Reference Range Interpretation Comments CO2 (test code = CO2) 26 24-32 [facility]2021-10-18 09:42:00 Test Item Value Reference Range Interpretation Comments AGAP (test code = AGAP) 6.4 10.0-20.0 [place] 853501-10-18 09:42:00 Test Item Value Reference Range Interpretation Comments Calcium Lvl (test code = Calcium Lvl) 8.7 8.5-10.5 [place] 853501-10-18 09:42:00 Test Item Value Reference Range Interpretation Comments eGFR (test code = eGFR) 97 [facility]2021-10-18 09:42:00 Test Item Value Reference Range Interpretation Comments Vitamin D, 25-OH, Total (test code = 20 Vitamin D, 25-OH, Total) [facility] [id number] 09:42:00 Test Item Value Reference Range Interpretation Comments PTH Intact (test code = PTH Intact) 70.6 18.4-80.1 [facility]2021-10-18 09:42:00 Test Item Value Reference Range Interpretation Comments Glucose Lvl (test code = Glucose Lvl) 89 70-99 [facility]2021-10-18 09:42:00 Test Item Value Reference Range Interpretation Comments BUN (test code = BUN) 9 7-22 [facility]2021-10-18 09:42:00 Test Item Value Reference Range Interpretation Comments Creatinine Lvl (test code = Creatinine 0.54 0.50-1.40 Lvl) [facility]2021-10-18 09:42:00 Test Item Value Reference Range Interpretation Comments Sodium Lvl (test code = Sodium Lvl) 143 135-145 [facility]2021-10-18 09:42:00 Test Item Value Reference Range Interpretation Comments Potassium Lvl (test code = Potassium 4.4 3.5-5.1 Lvl) [facility]2021-10-18 09:42:00 Test Item Value Reference Range Interpretation Comments Chloride Lvl (test code = Chloride Lvl) 115 95-109 [facility]2021-10-18 09:42:00 Test Item Value Reference Range Interpretation Comments CO2 (test code = CO2) 26 24-32 [facility]2021-10-18 09:42:00 Test Item Value Reference Range Interpretation Comments AGAP (test code = AGAP) 6.4 10.0-20.0 [facility]2021-10-18 09:42:00 Test Item Value Reference Range Interpretation Comments Calcium Lvl (test code = Calcium Lvl) 8.7 8.5-10.5 [facility]2021-10-18 09:42:00 Test Item Value Reference Range Interpretation Comments eGFR (test code = eGFR) 97 [facility]2021-10-18 09:42:00 Test Item Value Reference Range Interpretation Comments Vitamin D, 25-OH, Total (test code = 20 Vitamin D, 25-OH, Total) [facility] [id number] 09:42:00 Test Item Value Reference Range Interpretation Comments PTH Intact (test code = PTH Intact) 70.6 18.4-80.1 [place] 853501-10-18 09:42:00 Test Item Value Reference Range Interpretation Comments Glucose Lvl (test code = Glucose Lvl) 89 70-99 [facility]2021-10-18 09:42:00 Test Item Value Reference Range Interpretation Comments BUN (test code = BUN) 9 7-22 [place] 853501-10-18 09:42:00 Test Item Value Reference Range Interpretation Comments Creatinine Lvl (test code = Creatinine 0.54 0.50-1.40 Lvl) [facility]2021-10-18 09:42:00 Test Item Value Reference Range Interpretation Comments Sodium Lvl (test code = Sodium Lvl) 143 135-145 [place] 853501-10-18 09:42:00 Test Item Value Reference Range Interpretation Comments Potassium Lvl (test code = Potassium 4.4 3.5-5.1 Lvl) [place] 853501-10-18 09:42:00 Test Item Value Reference Range Interpretation Comments Chloride Lvl (test code = Chloride Lvl) 115 95-109 [place] 853501-10-18 09:42:00 Test Item Value Reference Range Interpretation Comments CO2 (test code = CO2) 26 24-32 [place] 853501-10-18 09:42:00 Test Item Value Reference Range Interpretation Comments AGAP (test code = AGAP) 6.4 10.0-20.0 [place] 853501-10-18 09:42:00 Test Item Value Reference Range Interpretation Comments Calcium Lvl (test code = Calcium Lvl) 8.7 8.5-10.5 [place] [address]3501-10-18 09:42:00 Test Item Value Reference Range Interpretation Comments eGFR (test code = eGFR) 97 [facility]2021-10-18 09:42:00 Test Item Value Reference Range Interpretation Comments Vitamin D, 25-OH, Total (test code = 20 Vitamin D, 25-OH, Total) [facility] [id number] 09:42:00 Test Item Value Reference Range Interpretation Comments PTH Intact (test code = PTH Intact) 70.6 18.4-80.1 [place] [address]3501-10-18 09:42:00 Test Item Value Reference Range Interpretation Comments Glucose Lvl (test code = Glucose Lvl) 89 70-99 [place] 853501-10-18 09:42:00 Test Item Value Reference Range Interpretation Comments BUN (test code = BUN) 9 7-22 [place] [address]3501-10-18 09:42:00 Test Item Value Reference Range Interpretation Comments Creatinine Lvl (test code = Creatinine 0.54 0.50-1.40 Lvl) [place] [address]3501-10-18 09:42:00 Test Item Value Reference Range Interpretation Comments Sodium Lvl (test code = Sodium Lvl) 143 135-145 [place] [address]3501-10-18 09:42:00 Test Item Value Reference Range Interpretation Comments Potassium Lvl (test code = Potassium 4.4 3.5-5.1 Lvl) [place] [address]3501-10-18 09:42:00 Test Item Value Reference Range Interpretation Comments Chloride Lvl (test code = Chloride Lvl) 115 95-109 [place] 853501-10-18 09:42:00 Test Item Value Reference Range Interpretation Comments CO2 (test code = CO2) 26 24-32 [place] 853501-10-18 09:42:00 Test Item Value Reference Range Interpretation Comments AGAP (test code = AGAP) 6.4 10.0-20.0 [place] [address]3501-10-18 09:42:00 Test Item Value Reference Range Interpretation Comments Calcium Lvl (test code = Calcium Lvl) 8.7 8.5-10.5 [place] [address]3501-10-18 09:42:00 Test Item Value Reference Range Interpretation Comments eGFR (test code = eGFR) 97 [place] [address]3501-10-18 09:42:00 Test Item Value Reference Range Interpretation Comments Vitamin D, 25-OH, Total (test code = 20 Vitamin D, 25-OH, Total) [facility] [id number] 09:42:00 Test Item Value Reference Range Interpretation Comments PTH Intact (test code = PTH Intact) 70.6 18.4-80.1 [facility]2021-10-18 09:42:00 Test Item Value Reference Range Interpretation Comments Glucose Lvl (test code = Glucose Lvl) 89 70-99 [place] 853501-10-18 09:42:00 Test Item Value Reference Range Interpretation Comments BUN (test code = BUN) 9 7-22 [facility]2021-10-18 09:42:00 Test Item Value Reference Range Interpretation Comments Creatinine Lvl (test code = Creatinine 0.54 0.50-1.40 Lvl) [facility]2021-10-18 09:42:00 Test Item Value Reference Range Interpretation Comments Sodium Lvl (test code = Sodium Lvl) 143 135-145 [facility]2021-10-18 09:42:00 Test Item Value Reference Range Interpretation Comments Potassium Lvl (test code = Potassium 4.4 3.5-5.1 Lvl) [facility]2021-10-18 09:42:00 Test Item Value Reference Range Interpretation Comments Chloride Lvl (test code = Chloride Lvl) 115 95-109 [facility]2021-10-18 09:42:00 Test Item Value Reference Range Interpretation Comments CO2 (test code = CO2) 26 24-32 [facility]2021-10-18 09:42:00 Test Item Value Reference Range Interpretation Comments AGAP (test code = AGAP) 6.4 10.0-20.0 [facility]2021-10-18 09:42:00 Test Item Value Reference Range Interpretation Comments Calcium Lvl (test code = Calcium Lvl) 8.7 8.5-10.5 [facility]2021-10-18 09:42:00 Test Item Value Reference Range Interpretation Comments eGFR (test code = eGFR) 97 [facility]2021-10-18 09:42:00 Test Item Value Reference Range Interpretation Comments Vitamin D, 25-OH, Total (test code = 20 Vitamin D, 25-OH, Total) [facility] [id number] 09:42:00 Test Item Value Reference Range Interpretation Comments PTH Intact (test code = PTH Intact) 70.6 18.4-80.1 [facility]2021-10-18 09:42:00 Test Item Value Reference Range Interpretation Comments Glucose Lvl (test code = Glucose Lvl) 89 70-99 [facility]2021-10-18 09:42:00 Test Item Value Reference Range Interpretation Comments BUN (test code = BUN) 9 7-22 [facility]2021-10-18 09:42:00 Test Item Value Reference Range Interpretation Comments Creatinine Lvl (test code = Creatinine 0.54 0.50-1.40 Lvl) [facility]2021-10-18 09:42:00 Test Item Value Reference Range Interpretation Comments Sodium Lvl (test code = Sodium Lvl) 143 135-145 [facility]2021-10-18 09:42:00 Test Item Value Reference Range Interpretation Comments Potassium Lvl (test code = Potassium 4.4 3.5-5.1 Lvl) [facility]2021-10-18 09:42:00 Test Item Value Reference Range Interpretation Comments Chloride Lvl (test code = Chloride Lvl) 115 95-109 [facility]2021-10-18 09:42:00 Test Item Value Reference Range Interpretation Comments CO2 (test code = CO2) 26 24-32 [facility]2021-10-18 09:42:00 Test Item Value Reference Range Interpretation Comments AGAP (test code = AGAP) 6.4 10.0-20.0 [facility]2021-10-18 09:42:00 Test Item Value Reference Range Interpretation Comments Calcium Lvl (test code = Calcium Lvl) 8.7 8.5-10.5 [facility]2021-10-18 09:42:00 Test Item Value Reference Range Interpretation Comments eGFR (test code = eGFR) 97 [facility]2021-10-18 09:42:00 Test Item Value Reference Range Interpretation Comments Vitamin D, 25-OH, Total (test code = 20 Vitamin D, 25-OH, Total) [facility] [id number] 09:42:00 Test Item Value Reference Range Interpretation Comments PTH Intact (test code = PTH Intact) 70.6 18.4-80.1 [facility] CampusStyleFeeder [id number] 09:42:00 Test Item Value Reference Range Interpretation Comments Glucose Lvl (test code = Glucose Lvl) 89 70-99 [facility]2021-10-18 09:42:00 Test Item Value Reference Range Interpretation Comments BUN (test code = BUN) 9 7-22 [facility]2021-10-18 09:42:00 Test Item Value Reference Range Interpretation Comments Creatinine Lvl (test code = Creatinine 0.54 0.50-1.40 Lvl) [facility]2021-10-18 09:42:00 Test Item Value Reference Range Interpretation Comments Sodium Lvl (test code = Sodium Lvl) 143 135-145 [facility]2021-10-18 09:42:00 Test Item Value Reference Range Interpretation Comments Potassium Lvl (test code = Potassium 4.4 3.5-5.1 Lvl) [facility]2021-10-18 09:42:00 Test Item Value Reference Range Interpretation Comments Chloride Lvl (test code = Chloride Lvl) 115 95-109 [facility]2021-10-18 09:42:00 Test Item Value Reference Range Interpretation Comments CO2 (test code = CO2) 26 24-32 [facility]2021-10-18 09:42:00 Test Item Value Reference Range Interpretation Comments AGAP (test code = AGAP) 6.4 10.0-20.0 [facility]2021-10-18 09:42:00 Test Item Value Reference Range Interpretation Comments Calcium Lvl (test code = Calcium Lvl) 8.7 8.5-10.5 [facility]2021-10-18 09:42:00 Test Item Value Reference Range Interpretation Comments eGFR (test code = eGFR) 97 [facility]2021-10-18 09:42:00 Test Item Value Reference Range Interpretation Comments Vitamin D, 25-OH, Total (test code = 20 Vitamin D, 25-OH, Total) [facility] [id number] 09:42:00 Test Item Value Reference Range Interpretation Comments PTH Intact (test code = PTH Intact) 70.6 18.4-80.1 [facility]2021-10-18 09:42:00 Test Item Value Reference Range Interpretation Comments Glucose Lvl (test code = Glucose Lvl) 89 70-99 [facility]2021-10-18 09:42:00 Test Item Value Reference Range Interpretation Comments BUN (test code = BUN) 9 - [facility]2021-10-18 09:42:00 Test Item Value Reference Range Interpretation Comments Creatinine Lvl (test code = Creatinine 0.54 0.50-1.40 Lvl) [facility]2021-10-18 09:42:00 Test Item Value Reference Range Interpretation Comments Sodium Lvl (test code = Sodium Lvl) 143 135-145 [facility]2021-10-18 09:42:00 Test Item Value Reference Range Interpretation Comments Potassium Lvl (test code = Potassium 4.4 3.5-5.1 Lvl) [facility]2021-10-18 09:42:00 Test Item Value Reference Range Interpretation Comments Chloride Lvl (test code = Chloride Lvl) 115 95-109 [facility]2021-10-18 09:42:00 Test Item Value Reference Range Interpretation Comments CO2 (test code = CO2) 26 24-32 [facility]2021-10-18 09:42:00 Test Item Value Reference Range Interpretation Comments AGAP (test code = AGAP) 6.4 10.0-20.0 [facility]2021-10-18 09:42:00 Test Item Value Reference Range Interpretation Comments Calcium Lvl (test code = Calcium Lvl) 8.7 8.5-10.5 [facility]2021-10-18 09:42:00 Test Item Value Reference Range Interpretation Comments eGFR (test code = eGFR) 97 [facility]2021-10-18 09:42:00 Test Item Value Reference Range Interpretation Comments Vitamin D, 25-OH, Total (test code = 20 Vitamin D, 25-OH, Total) [facility] [id number] 09:42:00 Test Item Value Reference Range Interpretation Comments PTH Intact (test code = PTH Intact) 70.6 18.4-80.1 [facility]2021-10-18 09:42:00 Test Item Value Reference Range Interpretation Comments Glucose Lvl (test code = Glucose Lvl) 89 70-99 [facility]2021-10-18 09:42:00 Test Item Value Reference Range Interpretation Comments BUN (test code = BUN) 9 7- [place] 853501-10-18 09:42:00 Test Item Value Reference Range Interpretation Comments Creatinine Lvl (test code = Creatinine 0.54 0.50-1.40 Lvl) [facility]2021-10-18 09:42:00 Test Item Value Reference Range Interpretation Comments Sodium Lvl (test code = Sodium Lvl) 143 135-145 [facility]2021-10-18 09:42:00 Test Item Value Reference Range Interpretation Comments Potassium Lvl (test code = Potassium 4.4 3.5-5.1 Lvl) [facility]2021-10-18 09:42:00 Test Item Value Reference Range Interpretation Comments Chloride Lvl (test code = Chloride Lvl) 115 95-109 [facility]2021-10-18 09:42:00 Test Item Value Reference Range Interpretation Comments CO2 (test code = CO2) 26 24-32 [facility]2021-10-18 09:42:00 Test Item Value Reference Range Interpretation Comments AGAP (test code = AGAP) 6.4 10.0-20.0 [facility]2021-10-18 09:42:00 Test Item Value Reference Range Interpretation Comments Calcium Lvl (test code = Calcium Lvl) 8.7 8.5-10.5 [facility]2021-10-18 09:42:00 Test Item Value Reference Range Interpretation Comments eGFR (test code = eGFR) 97 [facility]2021-10-18 09:42:00 Test Item Value Reference Range Interpretation Comments Vitamin D, 25-OH, Total (test code = 20 Vitamin D, 25-OH, Total) [facility] [id number] 09:42:00 Test Item Value Reference Range Interpretation Comments PTH Intact (test code = PTH Intact) 70.6 18.4-80.1 [place] 853501-10-18 09:42:00 Test Item Value Reference Range Interpretation Comments Glucose Lvl (test code = Glucose Lvl) 89 70-99 [facility]2021-10-18 09:42:00 Test Item Value Reference Range Interpretation Comments BUN (test code = BUN) 9 7-22 [place] 853501-10-18 09:42:00 Test Item Value Reference Range Interpretation Comments Creatinine Lvl (test code = Creatinine 0.54 0.50-1.40 Lvl) [facility]2021-10-18 09:42:00 Test Item Value Reference Range Interpretation Comments Sodium Lvl (test code = Sodium Lvl) 143 135-145 [facility]2021-10-18 09:42:00 Test Item Value Reference Range Interpretation Comments Potassium Lvl (test code = Potassium 4.4 3.5-5.1 Lvl) [facility]2021-10-18 09:42:00 Test Item Value Reference Range Interpretation Comments Chloride Lvl (test code = Chloride Lvl) 115 95-109 [facility]2021-10-18 09:42:00 Test Item Value Reference Range Interpretation Comments CO2 (test code = CO2) 26 24-32 [facility]2021-10-18 09:42:00 Test Item Value Reference Range Interpretation Comments AGAP (test code = AGAP) 6.4 10.0-20.0 [facility]2021-10-18 09:42:00 Test Item Value Reference Range Interpretation Comments Calcium Lvl (test code = Calcium Lvl) 8.7 8.5-10.5 [facility]2021-10-18 09:42:00 Test Item Value Reference Range Interpretation Comments eGFR (test code = eGFR) 97 [facility]2021-10-18 09:42:00 Test Item Value Reference Range Interpretation Comments Vitamin D, 25-OH, Total (test code = 20 Vitamin D, 25-OH, Total) [facility] [id number] 09:42:00 Test Item Value Reference Range Interpretation Comments PTH Intact (test code = PTH Intact) 70.6 18.4-80.1 [facility]2021-10-18 09:42:00 Test Item Value Reference Range Interpretation Comments Glucose Lvl (test code = Glucose Lvl) 89 70-99 [facility]2021-10-18 09:42:00 Test Item Value Reference Range Interpretation Comments BUN (test code = BUN) 9 7-22 [facility]2021-10-18 09:42:00 Test Item Value Reference Range Interpretation Comments Creatinine Lvl (test code = Creatinine 0.54 0.50-1.40 Lvl) [place] 853501-10-18 09:42:00 Test Item Value Reference Range Interpretation Comments Sodium Lvl (test code = Sodium Lvl) 143 135-145 [facility]2021-10-18 09:42:00 Test Item Value Reference Range Interpretation Comments Potassium Lvl (test code = Potassium 4.4 3.5-5.1 Lvl) [facility]2021-10-18 09:42:00 Test Item Value Reference Range Interpretation Comments Chloride Lvl (test code = Chloride Lvl) 115 95-109 [facility]2021-10-18 09:42:00 Test Item Value Reference Range Interpretation Comments CO2 (test code = CO2) 26 24-32 [facility]2021-10-18 09:42:00 Test Item Value Reference Range Interpretation Comments AGAP (test code = AGAP) 6.4 10.0-20.0 [facility]2021-10-18 09:42:00 Test Item Value Reference Range Interpretation Comments Calcium Lvl (test code = Calcium Lvl) 8.7 8.5-10.5 [facility]2021-10-18 09:42:00 Test Item Value Reference Range Interpretation Comments eGFR (test code = eGFR) 97 [facility]2021-10-18 09:42:00 Test Item Value Reference Range Interpretation Comments Vitamin D, 25-OH, Total (test code = 20 Vitamin D, 25-OH, Total) [facility] [id number] 09:42:00 Test Item Value Reference Range Interpretation Comments PTH Intact (test code = PTH Intact) 70.6 18.4-80.1 [facility]2021-10-18 09:42:00 Test Item Value Reference Range Interpretation Comments Glucose Lvl (test code = Glucose Lvl) 89 70-99 [facility]2021-10-18 09:42:00 Test Item Value Reference Range Interpretation Comments BUN (test code = BUN) 9 7-22 [facility]2021-10-18 09:42:00 Test Item Value Reference Range Interpretation Comments Creatinine Lvl (test code = Creatinine 0.54 0.50-1.40 Lvl) [facility]2021-10-18 09:42:00 Test Item Value Reference Range Interpretation Comments Sodium Lvl (test code = Sodium Lvl) 143 135-145 [facility]2021-10-18 09:42:00 Test Item Value Reference Range Interpretation Comments Potassium Lvl (test code = Potassium 4.4 3.5-5.1 Lvl) [facility]2021-10-18 09:42:00 Test Item Value Reference Range Interpretation Comments Chloride Lvl (test code = Chloride Lvl) 115 95-109 [facility]2021-10-18 09:42:00 Test Item Value Reference Range Interpretation Comments CO2 (test code = CO2) 26 24-32 [facility]2021-10-18 09:42:00 Test Item Value Reference Range Interpretation Comments AGAP (test code = AGAP) 6.4 10.0-20.0 [facility]2021-10-18 09:42:00 Test Item Value Reference Range Interpretation Comments Calcium Lvl (test code = Calcium Lvl) 8.7 8.5-10.5 [facility]2021-10-18 09:42:00 Test Item Value Reference Range Interpretation Comments eGFR (test code = eGFR) 97 [facility]2021-10-18 09:42:00 Test Item Value Reference Range Interpretation Comments Vitamin D, 25-OH, Total (test code = 20 Vitamin D, 25-OH, Total) [facility] [id number] 09:42:00 Test Item Value Reference Range Interpretation Comments PTH Intact (test code = PTH Intact) 70.6 18.4-80.1 [facility]2021-10-18 09:42:00 Test Item Value Reference Range Interpretation Comments Glucose Lvl (test code = Glucose Lvl) 89 70-99 [facility]2021-10-18 09:42:00 Test Item Value Reference Range Interpretation Comments BUN (test code = BUN) 9 7-22 [place] 853501-10-18 09:42:00 Test Item Value Reference Range Interpretation Comments Creatinine Lvl (test code = Creatinine 0.54 0.50-1.40 Lvl) [facility]2021-10-18 09:42:00 Test Item Value Reference Range Interpretation Comments Sodium Lvl (test code = Sodium Lvl) 143 135-145 [facility]2021-10-18 09:42:00 Test Item Value Reference Range Interpretation Comments Potassium Lvl (test code = Potassium 4.4 3.5-5.1 Lvl) [place] 853501-10-18 09:42:00 Test Item Value Reference Range Interpretation Comments Chloride Lvl (test code = Chloride Lvl) 115 95-109 [place] 853501-10-18 09:42:00 Test Item Value Reference Range Interpretation Comments CO2 (test code = CO2) 26 24-32 [place] 853501-10-18 09:42:00 Test Item Value Reference Range Interpretation Comments AGAP (test code = AGAP) 6.4 10.0-20.0 [place] 853501-10-18 09:42:00 Test Item Value Reference Range Interpretation Comments Calcium Lvl (test code = Calcium Lvl) 8.7 8.5-10.5 [place] 853501-10-18 09:42:00 Test Item Value Reference Range Interpretation Comments eGFR (test code = eGFR) 97 [place] 853501-10-18 09:42:00 Test Item Value Reference Range Interpretation Comments Vitamin D, 25-OH, Total (test code = 20 Vitamin D, 25-OH, Total) [facility] [id number] 09:42:00 Test Item Value Reference Range Interpretation Comments PTH Intact (test code = PTH Intact) 70.6 18.4-80.1 [place] 853501-10-18 09:42:00 Test Item Value Reference Range Interpretation Comments Glucose Lvl (test code = Glucose Lvl) 89 70-99 [facility]2021-10-18 09:42:00 Test Item Value Reference Range Interpretation Comments BUN (test code = BUN) 9 7-22 [place] 853501-10-18 09:42:00 Test Item Value Reference Range Interpretation Comments Creatinine Lvl (test code = Creatinine 0.54 0.50-1.40 Lvl) [facility]2021-10-18 09:42:00 Test Item Value Reference Range Interpretation Comments Sodium Lvl (test code = Sodium Lvl) 143 135-145 [facility]2021-10-18 09:42:00 Test Item Value Reference Range Interpretation Comments Potassium Lvl (test code = Potassium 4.4 3.5-5.1 Lvl) [place] 853501-10-18 09:42:00 Test Item Value Reference Range Interpretation Comments Chloride Lvl (test code = Chloride Lvl) 115 95-109 [place] 853501-10-18 09:42:00 Test Item Value Reference Range Interpretation Comments CO2 (test code = CO2) 26 24-32 [place] 853501-10-18 09:42:00 Test Item Value Reference Range Interpretation Comments AGAP (test code = AGAP) 6.4 10.0-20.0 [facility]2021-10-18 09:42:00 Test Item Value Reference Range Interpretation Comments Calcium Lvl (test code = Calcium Lvl) 8.7 8.5-10.5 [place] 853501-10-18 09:42:00 Test Item Value Reference Range Interpretation Comments eGFR (test code = eGFR) 97 [place] 853501-10-18 09:42:00 Test Item Value Reference Range Interpretation Comments Vitamin D, 25-OH, Total (test code = 20 Vitamin D, 25-OH, Total) [facility] [id number] 09:42:00 Test Item Value Reference Range Interpretation Comments PTH Intact (test code = PTH Intact) 70.6 18.4-80.1 [facility]2021-10-18 09:42:00 Test Item Value Reference Range Interpretation Comments Glucose Lvl (test code = Glucose Lvl) 89 70-99 [place] 853501-10-18 09:42:00 Test Item Value Reference Range Interpretation Comments BUN (test code = BUN) 9 7-22 [place] 853501-10-18 09:42:00 Test Item Value Reference Range Interpretation Comments Creatinine Lvl (test code = Creatinine 0.54 0.50-1.40 Lvl) [place] 853501-10-18 09:42:00 Test Item Value Reference Range Interpretation Comments Sodium Lvl (test code = Sodium Lvl) 143 135-145 [facility]2021-10-18 09:42:00 Test Item Value Reference Range Interpretation Comments Potassium Lvl (test code = Potassium 4.4 3.5-5.1 Lvl) [facility]2021-10-18 09:42:00 Test Item Value Reference Range Interpretation Comments Chloride Lvl (test code = Chloride Lvl) 115 95-109 [place] 853501-10-18 09:42:00 Test Item Value Reference Range Interpretation Comments CO2 (test code = CO2) 26 24-32 [facility]2021-10-18 09:42:00 Test Item Value Reference Range Interpretation Comments AGAP (test code = AGAP) 6.4 10.0-20.0 [facility]2021-10-18 09:42:00 Test Item Value Reference Range Interpretation Comments Calcium Lvl (test code = Calcium Lvl) 8.7 8.5-10.5 [facility]2021-10-18 09:42:00 Test Item Value Reference Range Interpretation Comments eGFR (test code = eGFR) 97 [facility]2021-10-18 09:42:00 Test Item Value Reference Range Interpretation Comments Vitamin D, 25-OH, Total (test code = 20 Vitamin D, 25-OH, Total) [facility] [id number] 09:42:00 Test Item Value Reference Range Interpretation Comments PTH Intact (test code = PTH Intact) 70.6 18.4-80.1 [facility]2021-10-18 09:42:00 Test Item Value Reference Range Interpretation Comments Glucose Lvl (test code = Glucose Lvl) 89 70-99 [facility]2021-10-18 09:42:00 Test Item Value Reference Range Interpretation Comments BUN (test code = BUN) 9 7-22 [facility]2021-10-18 09:42:00 Test Item Value Reference Range Interpretation Comments Creatinine Lvl (test code = Creatinine 0.54 0.50-1.40 Lvl) [facility]2021-10-18 09:42:00 Test Item Value Reference Range Interpretation Comments Sodium Lvl (test code = Sodium Lvl) 143 135-145 [facility]2021-10-18 09:42:00 Test Item Value Reference Range Interpretation Comments Potassium Lvl (test code = Potassium 4.4 3.5-5.1 Lvl) [facility]2021-10-18 09:42:00 Test Item Value Reference Range Interpretation Comments Chloride Lvl (test code = Chloride Lvl) 115 95-109 [place] 853501-10-18 09:42:00 Test Item Value Reference Range Interpretation Comments CO2 (test code = CO2) - [facility]2021-10-18 09:42:00 Test Item Value Reference Range Interpretation Comments AGAP (test code = AGAP) 6.4 10.0-20.0 [place] 853501-10-18 09:42:00 Test Item Value Reference Range Interpretation Comments Calcium Lvl (test code = Calcium Lvl) 8.7 8.5-10.5 [facility]2021-10-18 09:42:00 Test Item Value Reference Range Interpretation Comments eGFR (test code = eGFR) 97 [facility]2021-10-18 09:42:00 Test Item Value Reference Range Interpretation Comments Vitamin D, 25-OH, Total (test code = 20 Vitamin D, 25-OH, Total) [facility] [id number] 09:42:00 Test Item Value Reference Range Interpretation Comments PTH Intact (test code = PTH Intact) 70.6 18.4-80.1 [facility]2021-10-18 09:42:00 Test Item Value Reference Range Interpretation Comments Glucose Lvl (test code = Glucose Lvl) 89 70-99 [facility]2021-10-18 09:42:00 Test Item Value Reference Range Interpretation Comments BUN (test code = BUN) 9 7-22 [facility]2021-10-18 09:42:00 Test Item Value Reference Range Interpretation Comments Creatinine Lvl (test code = Creatinine 0.54 0.50-1.40 Lvl) [facility]2021-10-18 09:42:00 Test Item Value Reference Range Interpretation Comments Sodium Lvl (test code = Sodium Lvl) 143 135-145 [facility]2021-10-18 09:42:00 Test Item Value Reference Range Interpretation Comments Potassium Lvl (test code = Potassium 4.4 3.5-5.1 Lvl) [facility]2021-10-18 09:42:00 Test Item Value Reference Range Interpretation Comments Chloride Lvl (test code = Chloride Lvl) 115 95-109 [place] 853501-10-18 09:42:00 Test Item Value Reference Range Interpretation Comments CO2 (test code = CO2) 26 24-32 [facility]2021-10-18 09:42:00 Test Item Value Reference Range Interpretation Comments AGAP (test code = AGAP) 6.4 10.0-20.0 [place] 853501-10-18 09:42:00 Test Item Value Reference Range Interpretation Comments Calcium Lvl (test code = Calcium Lvl) 8.7 8.5-10.5 [facility]2021-10-18 09:42:00 Test Item Value Reference Range Interpretation Comments eGFR (test code = eGFR) 97 [facility]2021-10-18 09:42:00 Test Item Value Reference Range Interpretation Comments Vitamin D, 25-OH, Total (test code = 20 Vitamin D, 25-OH, Total) [facility] [id number] 09:42:00 Test Item Value Reference Range Interpretation Comments PTH Intact (test code = PTH Intact) 70.6 18.4-80.1 [facility]2021-10-18 09:42:00 Test Item Value Reference Range Interpretation Comments Glucose Lvl (test code = Glucose Lvl) 89 70-99 [facility]2021-10-18 09:42:00 Test Item Value Reference Range Interpretation Comments BUN (test code = BUN) 9 7-22 [facility]2021-10-18 09:42:00 Test Item Value Reference Range Interpretation Comments Creatinine Lvl (test code = Creatinine 0.54 0.50-1.40 Lvl) [facility]2021-10-18 09:42:00 Test Item Value Reference Range Interpretation Comments Sodium Lvl (test code = Sodium Lvl) 143 135-145 [facility]2021-10-18 09:42:00 Test Item Value Reference Range Interpretation Comments Potassium Lvl (test code = Potassium 4.4 3.5-5.1 Lvl) [facility]2021-10-18 09:42:00 Test Item Value Reference Range Interpretation Comments Chloride Lvl (test code = Chloride Lvl) 115 95-109 [place] 853501-10-18 09:42:00 Test Item Value Reference Range Interpretation Comments CO2 (test code = CO2) 24-32 [facility]2021-10-18 09:42:00 Test Item Value Reference Range Interpretation Comments AGAP (test code = AGAP) 6.4 10.0-20.0 [facility]2021-10-18 09:42:00 Test Item Value Reference Range Interpretation Comments Calcium Lvl (test code = Calcium Lvl) 8.7 8.5-10.5 [facility]2021-10-18 09:42:00 Test Item Value Reference Range Interpretation Comments eGFR (test code = eGFR) 97 [facility]2021-10-18 09:42:00 Test Item Value Reference Range Interpretation Comments Vitamin D, 25-OH, Total (test code = 20 Vitamin D, 25-OH, Total) [facility] [id number] 09:42:00 Test Item Value Reference Range Interpretation Comments PTH Intact (test code = PTH Intact) 70.6 18.4-80.1 [facility]2021-10-18 09:42:00 Test Item Value Reference Range Interpretation Comments Glucose Lvl (test code = Glucose Lvl) 89 70-99 [facility]2021-10-18 09:42:00 Test Item Value Reference Range Interpretation Comments BUN (test code = BUN) 9 7-22 [facility]2021-10-18 09:42:00 Test Item Value Reference Range Interpretation Comments Creatinine Lvl (test code = Creatinine 0.54 0.50-1.40 Lvl) [facility]2021-10-18 09:42:00 Test Item Value Reference Range Interpretation Comments Sodium Lvl (test code = Sodium Lvl) 143 135-145 [facility]2021-10-18 09:42:00 Test Item Value Reference Range Interpretation Comments Potassium Lvl (test code = Potassium 4.4 3.5-5.1 Lvl) [facility]2021-10-18 09:42:00 Test Item Value Reference Range Interpretation Comments Chloride Lvl (test code = Chloride Lvl) 115 95-109 [facility]2021-10-18 09:42:00 Test Item Value Reference Range Interpretation Comments CO2 (test code = CO2) 26 24-32 [facility]2021-10-18 09:42:00 Test Item Value Reference Range Interpretation Comments AGAP (test code = AGAP) 6.4 10.0-20.0 [place] 853501-10-18 09:42:00 Test Item Value Reference Range Interpretation Comments Calcium Lvl (test code = Calcium Lvl) 8.7 8.5-10.5 [place] 853501-10-18 09:42:00 Test Item Value Reference Range Interpretation Comments eGFR (test code = eGFR) 97 [place] 853501-10-18 09:42:00 Test Item Value Reference Range Interpretation Comments Vitamin D, 25-OH, Total (test code = 20 Vitamin D, 25-OH, Total) [facility] [id number] 09:42:00 Test Item Value Reference Range Interpretation Comments PTH Intact (test code = PTH Intact) 70.6 18.4-80.1 [place] 853501-10-17 10:14:00 Test Item Value Reference Range Interpretation Comments Glucose Lvl (test code = Glucose Lvl) 107 70-99 [place] 853501-10-17 10:14:00 Test Item Value Reference Range Interpretation Comments BUN (test code = BUN) 13 7-22 [place] 853501-10-17 10:14:00 Test Item Value Reference Range Interpretation Comments Creatinine Lvl (test code = Creatinine 0.67 0.50-1.40 Lvl) [facility]2021-10-17 10:14:00 Test Item Value Reference Range Interpretation Comments Sodium Lvl (test code = Sodium Lvl) 143 135-145 [facility]2021-10-17 10:14:00 Test Item Value Reference Range Interpretation Comments Potassium Lvl (test code = Potassium 3.3 3.5-5.1 Lvl) [facility]2021-10-17 10:14:00 Test Item Value Reference Range Interpretation Comments Chloride Lvl (test code = Chloride Lvl) 111 95-109 [place] 853501-10-17 10:14:00 Test Item Value Reference Range Interpretation Comments CO2 (test code = CO2) 23 24-32 [facility]2021-10-17 10:14:00 Test Item Value Reference Range Interpretation Comments Calcium Lvl (test code = Calcium Lvl) 9.2 8.5-10.5 [place] 853501-10-17 10:14:00 Test Item Value Reference Range Interpretation Comments Total Protein (test code = Total 6.5 6.4-8.4 Protein) [facility]2021-10-17 10:14:00 Test Item Value Reference Range Interpretation Comments Albumin Lvl (test code = Albumin Lvl) 2.9 3.5-5.0 [place] 853501-10-17 10:14:00 Test Item Value Reference Range Interpretation Comments ALT (test code = ALT) 19 See_Comment [Auto mated message] The system which ge nerated this result transmit sarah reference range : <=65. The reference range was not used to interpr et this result as felicitas l/abnormal. [facility]2021-10-17 10:14:00 Test Item Value Reference Range Interpretation Comments AST (test code = AST) 13 See_Comment [Auto mated message] The system which ge nerated this result transmit sarah reference range : <=37. The reference range was not used to interpr et this result as felicitas l/abnormal. [facility]2021-10-17 10:14:00 Test Item Value Reference Range Interpretation Comments Alk Phos (test code = Alk Phos) 102 39-136 [facility] [id number] 10:14:00 Test Item Value Reference Range Interpretation Comments Bili Total (test code = Bili Total) 0.3 0.2-1.3 [facility]2021-10-17 10:14:00 Test Item Value Reference Range Interpretation Comments AGAP (test code = AGAP) 12.3 10.0-20.0 [facility]2021-10-17 10:14:00 Test Item Value Reference Range Interpretation Comments B/C Ratio (test code = B/C Ratio) 19 1 6-25 [place] 853501-10-17 10:14:00 Test Item Value Reference Range Interpretation Comments Globulin (test code = Globulin) 3.6 2.7-4.2 [facility]2021-10-17 10:14:00 Test Item Value Reference Range Interpretation Comments A/G Ratio (test code = A/G Ratio) 0.8 1 0.7-1.6 [place] 853501-10-17 10:14:00 Test Item Value Reference Range Interpretation Comments eGFR (test code = eGFR) 91 [id number] 10:14:00 Test Item Value Reference Range Interpretation Comments WBC (test code = WBC) 9.8 3.7-10.4 [facility] [id number] 10:14:00 Test Item Value Reference Range Interpretation Comments RBC (test code = RBC) 3.87 4.20-5.40 [place] 139731-10-17 10:14:00 Test Item Value Reference Range Interpretation Comments Hgb (test code = Hgb) 11.0 12.0-16.0 [place] 139731-10-17 10:14:00 Test Item Value Reference Range Interpretation Comments Hct (test code = Hct) 33.3 36.0-48.0 [place] 139731-10-17 10:14:00 Test Item Value Reference Range Interpretation Comments MCV (test code = MCV) 86.1 80.0-98.0 [place] 139731-10-17 10:14:00 Test Item Value Reference Range Interpretation Comments MCH (test code = MCH) 28.4 pg 27.0-31.0 [facility] [id number] 10:14:00 Test Item Value Reference Range Interpretation Comments MCHC (test code = MCHC) 33.0 32.0-36.0 [facility] [id number] 10:14:00 Test Item Value Reference Range Interpretation Comments RDW (test code = RDW) 15.4 11.5-14.5 [facility] [id number] 10:14:00 Test Item Value Reference Range Interpretation Comments Platelet (test code = Platelet) 418 133-450 [facility] [id number] 10:14:00 Test Item Value Reference Range Interpretation Comments MPV (test code = MPV) 8.1 7.4-10.4 [place] 139731-10-17 10:14:00 Test Item Value Reference Range Interpretation Comments PTT (test code = PTT) 31.9 s 22.9-35.8 [place] 139731-10-17 10:14:00 Test Item Value Reference Range Interpretation Comments Segs (test code = Segs) 78.7 45.0-75.0 [place] 139731-10-17 10:14:00 Test Item Value Reference Range Interpretation Comments Lymphocytes (test code = Lymphocytes) 13.1 20.0-40.0 [place] 139731-10-17 10:14:00 Test Item Value Reference Range Interpretation Comments Monocytes (test code = Monocytes) 6.8 2.0-12.0 [place] 139731-10-17 10:14:00 Test Item Value Reference Range Interpretation Comments Eosinophils (test code = 0.7 See_Comment [A utomated message] The Eosinophils) system which ge nerated this result tra nsmitted reference range : <=4.0. The reference r arelis was not used to int erpret this result as normal/abnormal . [facility] [id number] 10:14:00 Test Item Value Reference Range Interpretation Comments Basophils (test code = 0.7 See_Comment [Aut omated message] The Basophils) system which ge nerated this result tra nsmitted reference range : <=1.0. The reference r arelis was not used to int erpret this result as normal/abnormal . [facility] [id number] 10:14:00 Test Item Value Reference Range Interpretation Comments Neutrophils # (test code = Neutrophils 7.7 1.5-8.1 #) [facility] [id number] 10:14:00 Test Item Value Reference Range Interpretation Comments Lymphocytes # (test code = Lymphocytes 1.3 1.0-5.5 #) [facility] [id number] 10:14:00 Test Item Value Reference Range Interpretation Comments Monocytes # (test code 0.7 See_Comment [Aut omated message] The = Monocytes #) system which generated this result tra nsmitted reference range : <=0.8. The reference r arelis was not used to int erpret this result as normal/abnormal . [facility] [id number] 10:14:00 Test Item Value Reference Range Interpretation Comments Eosinophils # (test code 0.1 See_Comment [A utomated message] The = Eosinophils #) system whic h generated this result tra nsmitted reference range : <=0.5. The reference r arelis was not used to int erpret this result as normal/abnormal . [facility]StnvcmdHAHSNZWGXO0120-01-06 10:14:00 Test Item Value Reference Range Interpretation Comments Basophils # (test code 0.1 See_Comment [Aut omated message] The = Basophils #) system which generated this result tra nsmitted reference range : <=0.2. The reference r arelis was not used to int erpret this result as normal/abnormal . [facility] CentralRfdvttiJDVLHUPRLA1262-23-69 10:14:00 Test Item Value Reference Range Interpretation Comments PT (test code = PT) 16.8 s 12.0-14.7 [facility] CentralOuduqzbIERAILJQHJ2402-15-71 10:14:00 Test Item Value Reference Range Interpretation Comments INR (test code = INR) 1.39 1 0.85-1.17 [facility] CentralSaiebfnNZUUIEJFPF6679-80-12 10:14:00 Test Item Value Reference Range Interpretation Comments Lymphocytes (test code = Lymphocytes) 13.1 20.0-40.0 [facility] CentralLmzfqzxLSMOCFPQPQ4017-05-58 10:14:00 Test Item Value Reference Range Interpretation Comments Monocytes (test code = Monocytes) 6.8 2.0-12.0 [facility] CentralPgihiibKCTUMXCGQS9971-65-83 10:14:00 Test Item Value Reference Range Interpretation Comments Eosinophils (test code = 0.7 See_Comment [A utomated message] The Eosinophils) system which ge nerated this result tra nsmitted reference range : <=4.0. The reference r arelis was not used to int erpret this result as normal/abnormal . [facility] CentralPfmlilpCXLSMTGRIA3809-78-73 10:14:00 Test Item Value Reference Range Interpretation Comments Basophils (test code = 0.7 See_Comment [Aut omated message] The Basophils) system which ge nerated this result tra nsmitted reference range : <=1.0. The reference r arelis was not used to int erpret this result as normal/abnormal . [facility] CentralOdzlumvSBGXVHBHMZ0167-54-18 10:14:00 Test Item Value Reference Range Interpretation Comments Neutrophils # (test code = Neutrophils 7.7 1.5-8.1 #) [facility] CentralIyxenczZVHSFOAIWH1100-82-14 10:14:00 Test Item Value Reference Range Interpretation Comments Lymphocytes # (test code = Lymphocytes 1.3 1.0-5.5 #) [facility] CentralHypurigXQPTKFPCUL7848-85-34 10:14:00 Test Item Value Reference Range Interpretation Comments Monocytes # (test code 0.7 See_Comment [Aut omated message] The = Monocytes #) system which generated this result tra nsmitted reference range : <=0.8. The reference r arelis was not used to int erpret this result as normal/abnormal . [place] 139731-10-17 10:14:00 Test Item Value Reference Range Interpretation Comments Eosinophils # (test code 0.1 See_Comment [A utomated message] The = Eosinophils #) system whic h generated this result tra nsmitted reference range : <=0.5. The reference r arelis was not used to int erpret this result as normal/abnormal . [place] [address]-10-17 10:14:00 Test Item Value Reference Range Interpretation Comments Basophils # (test code 0.1 See_Comment [Aut omated message] The = Basophils #) system which generated this result tra nsmitted reference range : <=0.2. The reference r arelis was not used to int erpret this result as normal/abnormal . [place] 139731-10-17 10:14:00 Test Item Value Reference Range Interpretation Comments PT (test code = PT) 16.8 s 12.0-14.7 [place] [address]-10-17 10:14:00 Test Item Value Reference Range Interpretation Comments INR (test code = INR) 1.39 1 0.85-1.17 [place] 853501-10-17 10:14:00 Test Item Value Reference Range Interpretation Comments Glucose Lvl (test code = Glucose Lvl) 107 70-99 [place] 853501-10-17 10:14:00 Test Item Value Reference Range Interpretation Comments BUN (test code = BUN) 13 7-22 [place] 853501-10-17 10:14:00 Test Item Value Reference Range Interpretation Comments Creatinine Lvl (test code = Creatinine 0.67 0.50-1.40 Lvl) [place] 853501-10-17 10:14:00 Test Item Value Reference Range Interpretation Comments Sodium Lvl (test code = Sodium Lvl) 143 135-145 [place] 853501-10-17 10:14:00 Test Item Value Reference Range Interpretation Comments Potassium Lvl (test code = Potassium 3.3 3.5-5.1 Lvl) [place] 853501-10-17 10:14:00 Test Item Value Reference Range Interpretation Comments Chloride Lvl (test code = Chloride Lvl) 111 95-109 [facility] [id number] 10:14:00 Test Item Value Reference Range Interpretation Comments CO2 (test code = CO2) 23 24-32 [facility]WhoisB[facility] [id number] 10:14:00 Test Item Value Reference Range Interpretation Comments Calcium Lvl (test code = Calcium Lvl) 9.2 8.5-10.5 [facility] [id number] 10:14:00 Test Item Value Reference Range Interpretation Comments Total Protein (test code = Total 6.5 6.4-8.4 Protein) [facility] [id number] 10:14:00 Test Item Value Reference Range Interpretation Comments Albumin Lvl (test code = Albumin Lvl) 2.9 3.5-5.0 [facility] [id number] 10:14:00 Test Item Value Reference Range Interpretation Comments ALT (test code = ALT) 19 See_Comment [Auto mated message] The system which ge nerated this result transmit sarah reference range : <=65. The reference range was not used to interpr et this result as felicitas l/abnormal. [facility] [id number] 10:14:00 Test Item Value Reference Range Interpretation Comments AST (test code = AST) 13 See_Comment [Auto mated message] The system which ge nerated this result transmit sarah reference range : <=37. The reference range was not used to interpr et this result as felicitas l/abnormal. [facility] [id number] 10:14:00 Test Item Value Reference Range Interpretation Comments Alk Phos (test code = Alk Phos) 102 39-136 [facility] [id number] 10:14:00 Test Item Value Reference Range Interpretation Comments Bili Total (test code = Bili Total) 0.3 0.2-1.3 [facility] [id number] 10:14:00 Test Item Value Reference Range Interpretation Comments AGAP (test code = AGAP) 12.3 10.0-20.0 [facility] [id number] 10:14:00 Test Item Value Reference Range Interpretation Comments B/C Ratio (test code = B/C Ratio) 19 1 6-25 [facility]2021-10-17 10:14:00 Test Item Value Reference Range Interpretation Comments Globulin (test code = Globulin) 3.6 2.7-4.2 [place] 853501-10-17 10:14:00 Test Item Value Reference Range Interpretation Comments A/G Ratio (test code = A/G Ratio) 0.8 1 0.7-1.6 [facility]2021-10-17 10:14:00 Test Item Value Reference Range Interpretation Comments eGFR (test code = eGFR) 91 [facility] CentralRaileaxZGZKDVTNXN5818-09-32 10:14:00 Test Item Value Reference Range Interpretation Comments WBC (test code = WBC) 9.8 3.7-10.4 [facility] CentralWnebrzpFALMWAVAPP1020-07-73 10:14:00 Test Item Value Reference Range Interpretation Comments RBC (test code = RBC) 3.87 4.20-5.40 [facility] CentralSebvlzqJSTJXVVVMG6258-01-56 10:14:00 Test Item Value Reference Range Interpretation Comments Hgb (test code = Hgb) 11.0 12.0-16.0 [place] 139731-10-17 10:14:00 Test Item Value Reference Range Interpretation Comments Hct (test code = Hct) 33.3 36.0-48.0 [facility] CentralPuwqyfmFCJDKTHOEA4516-97-59 10:14:00 Test Item Value Reference Range Interpretation Comments MCV (test code = MCV) 86.1 80.0-98.0 [place] 139731-10-17 10:14:00 Test Item Value Reference Range Interpretation Comments MCH (test code = MCH) 28.4 pg 27.0-31.0 [place] 139731-10-17 10:14:00 Test Item Value Reference Range Interpretation Comments MCHC (test code = MCHC) 33.0 32.0-36.0 [place] 139731-10-17 10:14:00 Test Item Value Reference Range Interpretation Comments RDW (test code = RDW) 15.4 11.5-14.5 [place] 139731-10-17 10:14:00 Test Item Value Reference Range Interpretation Comments Platelet (test code = Platelet) 418 133-450 [facility] CentralZmtbacyGOEUNKZCXC9095-88-95 10:14:00 Test Item Value Reference Range Interpretation Comments MPV (test code = MPV) 8.1 7.4-10.4 [place] 139731-10-17 10:14:00 Test Item Value Reference Range Interpretation Comments PTT (test code = PTT) 31.9 s 22.9-35.8 [place] 139731-10-17 10:14:00 Test Item Value Reference Range Interpretation Comments Segs (test code = Segs) 78.7 45.0-75.0 [place] 139731-10-17 10:14:00 Test Item Value Reference Range Interpretation Comments Lymphocytes (test code = Lymphocytes) 13.1 20.0-40.0 [place] 139731-10-17 10:14:00 Test Item Value Reference Range Interpretation Comments Monocytes (test code = Monocytes) 6.8 2.0-12.0 [place] 139731-10-17 10:14:00 Test Item Value Reference Range Interpretation Comments Eosinophils (test code = 0.7 See_Comment [A utomated message] The Eosinophils) system which ge nerated this result tra nsmitted reference range : <=4.0. The reference r arelis was not used to int erpret this result as normal/abnormal . [facility] CentralVuawyygFYZXYXVGLG1205-16-73 10:14:00 Test Item Value Reference Range Interpretation Comments Basophils (test code = 0.7 See_Comment [Aut omated message] The Basophils) system which ge nerated this result tra nsmitted reference range : <=1.0. The reference r arelis was not used to int erpret this result as normal/abnormal . [facility] CentralYbhuoylKGYXOTHQKT3280-84-79 10:14:00 Test Item Value Reference Range Interpretation Comments Neutrophils # (test code = Neutrophils 7.7 1.5-8.1 #) [place] 139731-10-17 10:14:00 Test Item Value Reference Range Interpretation Comments Lymphocytes # (test code = Lymphocytes 1.3 1.0-5.5 #) [place] 139731-10-17 10:14:00 Test Item Value Reference Range Interpretation Comments Monocytes # (test code 0.7 See_Comment [Aut omated message] The = Monocytes #) system which generated this result tra nsmitted reference range : <=0.8. The reference r arelis was not used to int erpret this result as normal/abnormal . [place] [address]-10-17 10:14:00 Test Item Value Reference Range Interpretation Comments Eosinophils # (test code 0.1 See_Comment [A utomated message] The = Eosinophils #) system whic h generated this result tra nsmitted reference range : <=0.5. The reference r arelis was not used to int erpret this result as normal/abnormal . [place] 139731-10-17 10:14:00 Test Item Value Reference Range Interpretation Comments Basophils # (test code 0.1 See_Comment [Aut omated message] The = Basophils #) system which generated this result tra nsmitted reference range : <=0.2. The reference r arelis was not used to int erpret this result as normal/abnormal . [place] [address]-10-17 10:14:00 Test Item Value Reference Range Interpretation Comments PT (test code = PT) 16.8 s 12.0-14.7 [place] [address]-10-17 10:14:00 Test Item Value Reference Range Interpretation Comments INR (test code = INR) 1.39 1 0.85-1.17 [place] 853501-10-17 10:14:00 Test Item Value Reference Range Interpretation Comments Glucose Lvl (test code = Glucose Lvl) 107 70-99 [place] 853501-10-17 10:14:00 Test Item Value Reference Range Interpretation Comments BUN (test code = BUN) 13 7-22 [place] 853501-10-17 10:14:00 Test Item Value Reference Range Interpretation Comments Creatinine Lvl (test code = Creatinine 0.67 0.50-1.40 Lvl) [place] 853501-10-17 10:14:00 Test Item Value Reference Range Interpretation Comments Sodium Lvl (test code = Sodium Lvl) 143 135-145 [place] 853501-10-17 10:14:00 Test Item Value Reference Range Interpretation Comments Potassium Lvl (test code = Potassium 3.3 3.5-5.1 Lvl) [place] 853501-10-17 10:14:00 Test Item Value Reference Range Interpretation Comments Chloride Lvl (test code = Chloride Lvl) 111 95-109 [place] 853501-10-17 10:14:00 Test Item Value Reference Range Interpretation Comments CO2 (test code = CO2) 23 24-32 [place] 853501-10-17 10:14:00 Test Item Value Reference Range Interpretation Comments Calcium Lvl (test code = Calcium Lvl) 9.2 8.5-10.5 [place] 853501-10-17 10:14:00 Test Item Value Reference Range Interpretation Comments Total Protein (test code = Total 6.5 6.4-8.4 Protein) [place] 853501-10-17 10:14:00 Test Item Value Reference Range Interpretation Comments Albumin Lvl (test code = Albumin Lvl) 2.9 3.5-5.0 [facility] [id number] 10:14:00 Test Item Value Reference Range Interpretation Comments ALT (test code = ALT) 19 See_Comment [Auto mated message] The system which ge nerated this result transmit sarah reference range : <=65. The reference range was not used to interpr et this result as felicitas l/abnormal. [facility] [id number] 10:14:00 Test Item Value Reference Range Interpretation Comments AST (test code = AST) 13 See_Comment [Auto mated message] The system which ge nerated this result transmit sarah reference range : <=37. The reference range was not used to interpr et this result as felicitas l/abnormal. [facility] [id number] 10:14:00 Test Item Value Reference Range Interpretation Comments Alk Phos (test code = Alk Phos) 102 39-136 [facility] [id number] 10:14:00 Test Item Value Reference Range Interpretation Comments Bili Total (test code = Bili Total) 0.3 0.2-1.3 [facility] [id number] 10:14:00 Test Item Value Reference Range Interpretation Comments AGAP (test code = AGAP) 12.3 10.0-20.0 [facility] [id number] 10:14:00 Test Item Value Reference Range Interpretation Comments B/C Ratio (test code = B/C Ratio) 19 1 6-25 [facility] [id number] 10:14:00 Test Item Value Reference Range Interpretation Comments Globulin (test code = Globulin) 3.6 2.7-4.2 [facility]2021-10-17 10:14:00 Test Item Value Reference Range Interpretation Comments A/G Ratio (test code = A/G Ratio) 0.8 1 0.7-1.6 [place] 853501-10-17 10:14:00 Test Item Value Reference Range Interpretation Comments eGFR (test code = eGFR) 91 [facility] CentralHhyqxakNZGTVEPOBD3147-22-86 10:14:00 Test Item Value Reference Range Interpretation Comments WBC (test code = WBC) 9.8 3.7-10.4 [facility] CentralYknhoarRQLRJFUXST8413-84-81 10:14:00 Test Item Value Reference Range Interpretation Comments RBC (test code = RBC) 3.87 4.20-5.40 [facility] CentralBsiqekpCUKBGKXBRY1566-91-31 10:14:00 Test Item Value Reference Range Interpretation Comments Hgb (test code = Hgb) 11.0 12.0-16.0 [facility] CentralQwbomaiLEQIRJMVCK8128-11-60 10:14:00 Test Item Value Reference Range Interpretation Comments Hct (test code = Hct) 33.3 36.0-48.0 [facility] CentralLfekiedIOUQDBABCP0746-72-70 10:14:00 Test Item Value Reference Range Interpretation Comments MCV (test code = MCV) 86.1 80.0-98.0 [facility] CentralSzvyyqcJMLUNTDYXL3528-68-79 10:14:00 Test Item Value Reference Range Interpretation Comments MCH (test code = MCH) 28.4 pg 27.0-31.0 [facility] CentralGfwymbdIZSQCELFCQ7231-81-45 10:14:00 Test Item Value Reference Range Interpretation Comments MCHC (test code = MCHC) 33.0 32.0-36.0 [place] 139731-10-17 10:14:00 Test Item Value Reference Range Interpretation Comments RDW (test code = RDW) 15.4 11.5-14.5 [facility] CentralAguxevxZPNBJOJGZC0883-00-62 10:14:00 Test Item Value Reference Range Interpretation Comments Platelet (test code = Platelet) 418 133-450 [facility] CentralYumiqucRJBCKOIKLH8494-08-95 10:14:00 Test Item Value Reference Range Interpretation Comments MPV (test code = MPV) 8.1 7.4-10.4 [place] 139731-10-17 10:14:00 Test Item Value Reference Range Interpretation Comments PTT (test code = PTT) 31.9 s 22.9-35.8 [place] 139731-10-17 10:14:00 Test Item Value Reference Range Interpretation Comments Segs (test code = Segs) 78.7 45.0-75.0 [place] 139731-10-17 10:14:00 Test Item Value Reference Range Interpretation Comments Lymphocytes (test code = Lymphocytes) 13.1 20.0-40.0 [place] 139731-10-17 10:14:00 Test Item Value Reference Range Interpretation Comments Monocytes (test code = Monocytes) 6.8 2.0-12.0 [place] 139731-10-17 10:14:00 Test Item Value Reference Range Interpretation Comments Eosinophils (test code = 0.7 See_Comment [A utomated message] The Eosinophils) system which ge nerated this result tra nsmitted reference range : <=4.0. The reference r arelis was not used to int erpret this result as normal/abnormal . [facility] CentralAtkgqkmWUNVBCUEEX5061-06-53 10:14:00 Test Item Value Reference Range Interpretation Comments Basophils (test code = 0.7 See_Comment [Aut omated message] The Basophils) system which ge nerated this result tra nsmitted reference range : <=1.0. The reference r arelis was not used to int erpret this result as normal/abnormal . [facility] CentralBryrdimUOESQOUOAK9192-43-94 10:14:00 Test Item Value Reference Range Interpretation Comments Neutrophils # (test code = Neutrophils 7.7 1.5-8.1 #) [place] 139731-10-17 10:14:00 Test Item Value Reference Range Interpretation Comments Lymphocytes # (test code = Lymphocytes 1.3 1.0-5.5 #) [place] 139731-10-17 10:14:00 Test Item Value Reference Range Interpretation Comments Monocytes # (test code 0.7 See_Comment [Aut omated message] The = Monocytes #) system which generated this result tra nsmitted reference range : <=0.8. The reference r arelis was not used to int erpret this result as normal/abnormal . [place] 139731-10-17 10:14:00 Test Item Value Reference Range Interpretation Comments Eosinophils # (test code 0.1 See_Comment [A utomated message] The = Eosinophils #) system whic h generated this result tra nsmitted reference range : <=0.5. The reference r arelis was not used to int erpret this result as normal/abnormal . [place] 139731-10-17 10:14:00 Test Item Value Reference Range Interpretation Comments Basophils # (test code 0.1 See_Comment [Aut omated message] The = Basophils #) system which generated this result tra nsmitted reference range : <=0.2. The reference r arelis was not used to int erpret this result as normal/abnormal . [place] 139731-10-17 10:14:00 Test Item Value Reference Range Interpretation Comments PT (test code = PT) 16.8 s 12.0-14.7 [address]10-17 10:14:00 Test Item Value Reference Range Interpretation Comments INR (test code = INR) 1.39 1 0.85-1.17 [place] 853501-10-17 10:14:00 Test Item Value Reference Range Interpretation Comments Glucose Lvl (test code = Glucose Lvl) 107 70-99 [place] 853501-10-17 10:14:00 Test Item Value Reference Range Interpretation Comments BUN (test code = BUN) 13 7-22 [place] [address]-10-17 10:14:00 Test Item Value Reference Range Interpretation Comments Creatinine Lvl (test code = Creatinine 0.67 0.50-1.40 Lvl) [place] 853501-10-17 10:14:00 Test Item Value Reference Range Interpretation Comments Sodium Lvl (test code = Sodium Lvl) 143 135-145 [place] 853501-10-17 10:14:00 Test Item Value Reference Range Interpretation Comments Potassium Lvl (test code = Potassium 3.3 3.5-5.1 Lvl) [place] 853501-10-17 10:14:00 Test Item Value Reference Range Interpretation Comments Chloride Lvl (test code = Chloride Lvl) 111 95-109 [place] 853501-10-17 10:14:00 Test Item Value Reference Range Interpretation Comments CO2 (test code = CO2) 23 24-32 [facility] [id number] 10:14:00 Test Item Value Reference Range Interpretation Comments Calcium Lvl (test code = Calcium Lvl) 9.2 8.5-10.5 [facility] [id number] 10:14:00 Test Item Value Reference Range Interpretation Comments Total Protein (test code = Total 6.5 6.4-8.4 Protein) [facility] [id number] 10:14:00 Test Item Value Reference Range Interpretation Comments Albumin Lvl (test code = Albumin Lvl) 2.9 3.5-5.0 [facility] [id number] 10:14:00 Test Item Value Reference Range Interpretation Comments ALT (test code = ALT) 19 See_Comment [Auto mated message] The system which ge nerated this result transmit sarah reference range : <=65. The reference range was not used to interpr et this result as felicitas l/abnormal. [facility] [id number] 10:14:00 Test Item Value Reference Range Interpretation Comments AST (test code = AST) 13 See_Comment [Auto mated message] The system which ge nerated this result transmit sarah reference range : <=37. The reference range was not used to interpr et this result as felicitas l/abnormal. [facility] [employer] [id number] 10:14:00 Test Item Value Reference Range Interpretation Comments Alk Phos (test code = Alk Phos) 102 39-136 [facility] [employer] [id number] 10:14:00 Test Item Value Reference Range Interpretation Comments Bili Total (test code = Bili Total) 0.3 0.2-1.3 [facility] [employer] [id number] 10:14:00 Test Item Value Reference Range Interpretation Comments AGAP (test code = AGAP) 12.3 10.0-20.0 [facility] [employer] [id number] 10:14:00 Test Item Value Reference Range Interpretation Comments B/C Ratio (test code = B/C Ratio) 19 1 6-25 [facility] [id number] 10:14:00 Test Item Value Reference Range Interpretation Comments Globulin (test code = Globulin) 3.6 2.7-4.2 [facility]2021-10-17 10:14:00 Test Item Value Reference Range Interpretation Comments A/G Ratio (test code = A/G Ratio) 0.8 1 0.7-1.6 [facility]2021-10-17 10:14:00 Test Item Value Reference Range Interpretation Comments eGFR (test code = eGFR) 91 [facility] CentralBrvuoeaHHFHMSEITT5373-16-25 10:14:00 Test Item Value Reference Range Interpretation Comments WBC (test code = WBC) 9.8 3.7-10.4 [facility] CentralFlfulmoQLGBNXYKKN5470-86-76 10:14:00 Test Item Value Reference Range Interpretation Comments RBC (test code = RBC) 3.87 4.20-5.40 [place] 139731-10-17 10:14:00 Test Item Value Reference Range Interpretation Comments Hgb (test code = Hgb) 11.0 12.0-16.0 [place] 139731-10-17 10:14:00 Test Item Value Reference Range Interpretation Comments Hct (test code = Hct) 33.3 36.0-48.0 [facility] CentralHuvdpocLDMCRSJNNE4572-05-77 10:14:00 Test Item Value Reference Range Interpretation Comments MCV (test code = MCV) 86.1 80.0-98.0 [place] 139731-10-17 10:14:00 Test Item Value Reference Range Interpretation Comments MCH (test code = MCH) 28.4 pg 27.0-31.0 [place] 139731-10-17 10:14:00 Test Item Value Reference Range Interpretation Comments MCHC (test code = MCHC) 33.0 32.0-36.0 [place] 139731-10-17 10:14:00 Test Item Value Reference Range Interpretation Comments RDW (test code = RDW) 15.4 11.5-14.5 [place] [address]-10-17 10:14:00 Test Item Value Reference Range Interpretation Comments Platelet (test code = Platelet) 418 133-450 [facility] CentralVekmvkjNAXCFEEOPW6684-17-68 10:14:00 Test Item Value Reference Range Interpretation Comments MPV (test code = MPV) 8.1 7.4-10.4 [place] 139731-10-17 10:14:00 Test Item Value Reference Range Interpretation Comments PTT (test code = PTT) 31.9 s 22.9-35.8 [place] 139731-10-17 10:14:00 Test Item Value Reference Range Interpretation Comments Segs (test code = Segs) 78.7 45.0-75.0 [place] 139731-10-17 10:14:00 Test Item Value Reference Range Interpretation Comments Lymphocytes (test code = Lymphocytes) 13.1 20.0-40.0 [place] 139731-10-17 10:14:00 Test Item Value Reference Range Interpretation Comments Monocytes (test code = Monocytes) 6.8 2.0-12.0 [place] 139731-10-17 10:14:00 Test Item Value Reference Range Interpretation Comments Eosinophils (test code = 0.7 See_Comment [A utomated message] The Eosinophils) system which ge nerated this result tra nsmitted reference range : <=4.0. The reference r arelis was not used to int erpret this result as normal/abnormal . [place] 139731-10-17 10:14:00 Test Item Value Reference Range Interpretation Comments Basophils (test code = 0.7 See_Comment [Aut omated message] The Basophils) system which ge nerated this result tra nsmitted reference range : <=1.0. The reference r arelis was not used to int erpret this result as normal/abnormal . [facility]guywrxSQPSSPAMKL3707-68-21 10:14:00 Test Item Value Reference Range Interpretation Comments Neutrophils # (test code = Neutrophils 7.7 1.5-8.1 #) [place] 139731-10-17 10:14:00 Test Item Value Reference Range Interpretation Comments Lymphocytes # (test code = Lymphocytes 1.3 1.0-5.5 #) [place] 139731-10-17 10:14:00 Test Item Value Reference Range Interpretation Comments Monocytes # (test code 0.7 See_Comment [Aut omated message] The = Monocytes #) system which generated this result tra nsmitted reference range : <=0.8. The reference r arelis was not used to int erpret this result as normal/abnormal . [place] 139731-10-17 10:14:00 Test Item Value Reference Range Interpretation Comments Eosinophils # (test code 0.1 See_Comment [A utomated message] The = Eosinophils #) system whic h generated this result tra nsmitted reference range : <=0.5. The reference r arelis was not used to int erpret this result as normal/abnormal . [place] 139731-10-17 10:14:00 Test Item Value Reference Range Interpretation Comments Basophils # (test code 0.1 See_Comment [Aut omated message] The = Basophils #) system which generated this result tra nsmitted reference range : <=0.2. The reference r arelis was not used to int erpret this result as normal/abnormal . [place] 139731-10-17 10:14:00 Test Item Value Reference Range Interpretation Comments PT (test code = PT) 16.8 s 12.0-14.7 [place] [address]-10-17 10:14:00 Test Item Value Reference Range Interpretation Comments INR (test code = INR) 1.39 1 0.85-1.17 [place] 853501-10-17 10:14:00 Test Item Value Reference Range Interpretation Comments Glucose Lvl (test code = Glucose Lvl) 107 70-99 [place] 853501-10-17 10:14:00 Test Item Value Reference Range Interpretation Comments BUN (test code = BUN) 13 7-22 [place] 853501-10-17 10:14:00 Test Item Value Reference Range Interpretation Comments Creatinine Lvl (test code = Creatinine 0.67 0.50-1.40 Lvl) [place] 853501-10-17 10:14:00 Test Item Value Reference Range Interpretation Comments Sodium Lvl (test code = Sodium Lvl) 143 135-145 [place] 853501-10-17 10:14:00 Test Item Value Reference Range Interpretation Comments Potassium Lvl (test code = Potassium 3.3 3.5-5.1 Lvl) [place] 853501-10-17 10:14:00 Test Item Value Reference Range Interpretation Comments Chloride Lvl (test code = Chloride Lvl) 111 95-109 [place] 853501-10-17 10:14:00 Test Item Value Reference Range Interpretation Comments CO2 (test code = CO2) 23 24-32 [place] 853501-10-17 10:14:00 Test Item Value Reference Range Interpretation Comments Calcium Lvl (test code = Calcium Lvl) 9.2 8.5-10.5 [place] 853501-10-17 10:14:00 Test Item Value Reference Range Interpretation Comments Total Protein (test code = Total 6.5 6.4-8.4 Protein) [place] 853501-10-17 10:14:00 Test Item Value Reference Range Interpretation Comments Albumin Lvl (test code = Albumin Lvl) 2.9 3.5-5.0 [facility] [id number] 10:14:00 Test Item Value Reference Range Interpretation Comments ALT (test code = ALT) 19 See_Comment [Auto mated message] The system which ge nerated this result transmit sarah reference range : <=65. The reference range was not used to interpr et this result as felicitas l/abnormal. [facility] [id number] 10:14:00 Test Item Value Reference Range Interpretation Comments AST (test code = AST) 13 See_Comment [Auto mated message] The system which ge nerated this result transmit sarah reference range : <=37. The reference range was not used to interpr et this result as felicitas l/abnormal. [facility] [id number] 10:14:00 Test Item Value Reference Range Interpretation Comments Alk Phos (test code = Alk Phos) 102 39-136 [facility] [id number] 10:14:00 Test Item Value Reference Range Interpretation Comments Bili Total (test code = Bili Total) 0.3 0.2-1.3 [facility] [id number] 10:14:00 Test Item Value Reference Range Interpretation Comments AGAP (test code = AGAP) 12.3 10.0-20.0 [facility] [id number] 10:14:00 Test Item Value Reference Range Interpretation Comments B/C Ratio (test code = B/C Ratio) 19 1 6-25 [facility] [id number] 10:14:00 Test Item Value Reference Range Interpretation Comments Globulin (test code = Globulin) 3.6 2.7-4.2 [facility] [id number] 10:14:00 Test Item Value Reference Range Interpretation Comments A/G Ratio (test code = A/G Ratio) 0.8 1 0.7-1.6 [facility]2021-10-17 10:14:00 Test Item Value Reference Range Interpretation Comments eGFR (test code = eGFR) 91 [facility] CentralOtdwctzUAJBNWVEMG7392-90-91 10:14:00 Test Item Value Reference Range Interpretation Comments WBC (test code = WBC) 9.8 3.7-10.4 [place] 139731-10-17 10:14:00 Test Item Value Reference Range Interpretation Comments RBC (test code = RBC) 3.87 4.20-5.40 [place] 139731-10-17 10:14:00 Test Item Value Reference Range Interpretation Comments Hgb (test code = Hgb) 11.0 12.0-16.0 [place] 139731-10-17 10:14:00 Test Item Value Reference Range Interpretation Comments Hct (test code = Hct) 33.3 36.0-48.0 [place] 139731-10-17 10:14:00 Test Item Value Reference Range Interpretation Comments MCV (test code = MCV) 86.1 80.0-98.0 [place] 139731-10-17 10:14:00 Test Item Value Reference Range Interpretation Comments MCH (test code = MCH) 28.4 pg 27.0-31.0 [facility] CentralKbvoqfyVSLNARNCSW9412-20-77 10:14:00 Test Item Value Reference Range Interpretation Comments MCHC (test code = MCHC) 33.0 32.0-36.0 [facility] CentralJrfunmzIAAQYRQONF8973-72-62 10:14:00 Test Item Value Reference Range Interpretation Comments RDW (test code = RDW) 15.4 11.5-14.5 [place] [address]-10-17 10:14:00 Test Item Value Reference Range Interpretation Comments Platelet (test code = Platelet) 418 133-450 [facility] CentralUbsiibpVQAXBYUGOS8981-68-23 10:14:00 Test Item Value Reference Range Interpretation Comments MPV (test code = MPV) 8.1 7.4-10.4 [place] 139731-10-17 10:14:00 Test Item Value Reference Range Interpretation Comments PTT (test code = PTT) 31.9 s 22.9-35.8 [place] 139731-10-17 10:14:00 Test Item Value Reference Range Interpretation Comments Segs (test code = Segs) 78.7 45.0-75.0 [place] 139731-10-17 10:14:00 Test Item Value Reference Range Interpretation Comments Lymphocytes (test code = Lymphocytes) 13.1 20.0-40.0 [place] 139731-10-17 10:14:00 Test Item Value Reference Range Interpretation Comments Monocytes (test code = Monocytes) 6.8 2.0-12.0 [place] 139731-10-17 10:14:00 Test Item Value Reference Range Interpretation Comments Eosinophils (test code = 0.7 See_Comment [A utomated message] The Eosinophils) system which ge nerated this result tra nsmitted reference range : <=4.0. The reference r arelis was not used to int erpret this result as normal/abnormal . [place] 139731-10-17 10:14:00 Test Item Value Reference Range Interpretation Comments Basophils (test code = 0.7 See_Comment [Aut omated message] The Basophils) system which ge nerated this result tra nsmitted reference range : <=1.0. The reference r arelis was not used to int erpret this result as normal/abnormal . [facility] CentralSatjwigJNYQYDNMCB1249-27-51 10:14:00 Test Item Value Reference Range Interpretation Comments Neutrophils # (test code = Neutrophils 7.7 1.5-8.1 #) [facility] CentralVubowalUSZVNJQNKL4881-79-17 10:14:00 Test Item Value Reference Range Interpretation Comments Lymphocytes # (test code = Lymphocytes 1.3 1.0-5.5 #) [facility] CentralQvujaivWCGEUQCBVT1719-37-32 10:14:00 Test Item Value Reference Range Interpretation Comments Monocytes # (test code 0.7 See_Comment [Aut omated message] The = Monocytes #) system which generated this result tra nsmitted reference range : <=0.8. The reference r arelis was not used to int erpret this result as normal/abnormal . [facility] CentralSknpfkhOASEQIYWTN4444-07-14 10:14:00 Test Item Value Reference Range Interpretation Comments Eosinophils # (test code 0.1 See_Comment [A utomated message] The = Eosinophils #) system whic h generated this result tra nsmitted reference range : <=0.5. The reference r arelis was not used to int erpret this result as normal/abnormal . [place] 139731-10-17 10:14:00 Test Item Value Reference Range Interpretation Comments Basophils # (test code 0.1 See_Comment [Aut omated message] The = Basophils #) system which generated this result tra nsmitted reference range : <=0.2. The reference r arelis was not used to int erpret this result as normal/abnormal . [place] 139731-10-17 10:14:00 Test Item Value Reference Range Interpretation Comments PT (test code = PT) 16.8 s 12.0-14.7 [address]10-17 10:14:00 Test Item Value Reference Range Interpretation Comments INR (test code = INR) 1.39 1 0.85-1.17 [place] 853501-10-17 10:14:00 Test Item Value Reference Range Interpretation Comments Glucose Lvl (test code = Glucose Lvl) 107 70-99 [place] 853501-10-17 10:14:00 Test Item Value Reference Range Interpretation Comments BUN (test code = BUN) 13 7-22 [place] 853501-10-17 10:14:00 Test Item Value Reference Range Interpretation Comments Creatinine Lvl (test code = Creatinine 0.67 0.50-1.40 Lvl) [place] 853501-10-17 10:14:00 Test Item Value Reference Range Interpretation Comments Sodium Lvl (test code = Sodium Lvl) 143 135-145 [place] 853501-10-17 10:14:00 Test Item Value Reference Range Interpretation Comments Potassium Lvl (test code = Potassium 3.3 3.5-5.1 Lvl) [place] 853501-10-17 10:14:00 Test Item Value Reference Range Interpretation Comments Chloride Lvl (test code = Chloride Lvl) 111 95-109 [place] 853501-10-17 10:14:00 Test Item Value Reference Range Interpretation Comments CO2 (test code = CO2) 23 24-32 [place]3501-10-17 10:14:00 Test Item Value Reference Range Interpretation Comments Calcium Lvl (test code = Calcium Lvl) 9.2 8.5-10.5 [facility] [id number] 10:14:00 Test Item Value Reference Range Interpretation Comments Total Protein (test code = Total 6.5 6.4-8.4 Protein) [place] 853501-10-17 10:14:00 Test Item Value Reference Range Interpretation Comments Albumin Lvl (test code = Albumin Lvl) 2.9 3.5-5.0 [facility] [id number] 10:14:00 Test Item Value Reference Range Interpretation Comments ALT (test code = ALT) 19 See_Comment [Auto mated message] The system which ge nerated this result transmit sarah reference range : <=65. The reference range was not used to interpr et this result as felicitas l/abnormal. [facility] [id number] 10:14:00 Test Item Value Reference Range Interpretation Comments AST (test code = AST) 13 See_Comment [Auto mated message] The system which ge nerated this result transmit sarah reference range : <=37. The reference range was not used to interpr et this result as felicitas l/abnormal. [facility] [id number] 10:14:00 Test Item Value Reference Range Interpretation Comments Alk Phos (test code = Alk Phos) 102 39-136 [facility] [employer] [id number] 10:14:00 Test Item Value Reference Range Interpretation Comments Bili Total (test code = Bili Total) 0.3 0.2-1.3 [facility] [id number] 10:14:00 Test Item Value Reference Range Interpretation Comments AGAP (test code = AGAP) 12.3 10.0-20.0 [facility] [employer] [id number] 10:14:00 Test Item Value Reference Range Interpretation Comments B/C Ratio (test code = B/C Ratio) 19 1 6-25 [facility] [id number] 10:14:00 Test Item Value Reference Range Interpretation Comments Globulin (test code = Globulin) 3.6 2.7-4.2 [facility] [id number] 10:14:00 Test Item Value Reference Range Interpretation Comments A/G Ratio (test code = A/G Ratio) 0.8 1 0.7-1.6 [facility] [id number] 10:14:00 Test Item Value Reference Range Interpretation Comments eGFR (test code = eGFR) 91 [facility] CentralShrnktzOPHXOJQRYO5643-57-98 10:14:00 Test Item Value Reference Range Interpretation Comments WBC (test code = WBC) 9.8 3.7-10.4 [place] 139731-10-17 10:14:00 Test Item Value Reference Range Interpretation Comments RBC (test code = RBC) 3.87 4.20-5.40 [place] 139731-10-17 10:14:00 Test Item Value Reference Range Interpretation Comments Hgb (test code = Hgb) 11.0 12.0-16.0 [place] 139731-10-17 10:14:00 Test Item Value Reference Range Interpretation Comments Hct (test code = Hct) 33.3 36.0-48.0 [place] 139731-10-17 10:14:00 Test Item Value Reference Range Interpretation Comments MCV (test code = MCV) 86.1 80.0-98.0 [place] 139731-10-17 10:14:00 Test Item Value Reference Range Interpretation Comments MCH (test code = MCH) 28.4 pg 27.0-31.0 [facility] CentralPfjapmePMGSSEFAMD5240-01-89 10:14:00 Test Item Value Reference Range Interpretation Comments MCHC (test code = MCHC) 33.0 32.0-36.0 [facility] CentralSsmqmenAYKJGOAWSO3945-37-00 10:14:00 Test Item Value Reference Range Interpretation Comments RDW (test code = RDW) 15.4 11.5-14.5 [place] 139731-10-17 10:14:00 Test Item Value Reference Range Interpretation Comments Platelet (test code = Platelet) 418 133-450 [facility] CentralNjhvwlxOHRFCKXPUY6483-19-47 10:14:00 Test Item Value Reference Range Interpretation Comments MPV (test code = MPV) 8.1 7.4-10.4 [place] 139731-10-17 10:14:00 Test Item Value Reference Range Interpretation Comments PTT (test code = PTT) 31.9 s 22.9-35.8 [place] 139731-10-17 10:14:00 Test Item Value Reference Range Interpretation Comments Segs (test code = Segs) 78.7 45.0-75.0 [place] 139731-10-17 10:14:00 Test Item Value Reference Range Interpretation Comments Lymphocytes (test code = Lymphocytes) 13.1 20.0-40.0 [facility] CentralDnortwiONOVSCMQPD6621-62-21 10:14:00 Test Item Value Reference Range Interpretation Comments Monocytes (test code = Monocytes) 6.8 2.0-12.0 [facility] CentralRyfgcvbPLDPZQLUFY1930-01-13 10:14:00 Test Item Value Reference Range Interpretation Comments Eosinophils (test code = 0.7 See_Comment [A utomated message] The Eosinophils) system which ge nerated this result tra nsmitted reference range : <=4.0. The reference r arelis was not used to int erpret this result as normal/abnormal . [facility] CentralPpuzjwgNATQWANXJE6188-08-43 10:14:00 Test Item Value Reference Range Interpretation Comments Basophils (test code = 0.7 See_Comment [Aut omated message] The Basophils) system which ge nerated this result tra nsmitted reference range : <=1.0. The reference r arelis was not used to int erpret this result as normal/abnormal . [facility] CentralWpspbjsIJSIYNZYFA4819-37-76 10:14:00 Test Item Value Reference Range Interpretation Comments Neutrophils # (test code = Neutrophils 7.7 1.5-8.1 #) [facility] CentralDllpwahFSTVDDIAXG2185-71-85 10:14:00 Test Item Value Reference Range Interpretation Comments Lymphocytes # (test code = Lymphocytes 1.3 1.0-5.5 #) [facility] CentralXhttdlyIPCELBQYYI6674-06-31 10:14:00 Test Item Value Reference Range Interpretation Comments Monocytes # (test code 0.7 See_Comment [Aut omated message] The = Monocytes #) system which generated this result tra nsmitted reference range : <=0.8. The reference r arelis was not used to int erpret this result as normal/abnormal . [facility] CentralJxxnqsvZBWAGJSRHO1846-49-21 10:14:00 Test Item Value Reference Range Interpretation Comments Eosinophils # (test code 0.1 See_Comment [A utomated message] The = Eosinophils #) system whic h generated this result tra nsmitted reference range : <=0.5. The reference r arelis was not used to int erpret this result as normal/abnormal . [place] [address]-10-17 10:14:00 Test Item Value Reference Range Interpretation Comments Basophils # (test code 0.1 See_Comment [Aut omated message] The = Basophils #) system which generated this result tra nsmitted reference range : <=0.2. The reference r arelis was not used to int erpret this result as normal/abnormal . [place] 139731-10-17 10:14:00 Test Item Value Reference Range Interpretation Comments PT (test code = PT) 16.8 s 12.0-14.7 [place] [address]-10-17 10:14:00 Test Item Value Reference Range Interpretation Comments INR (test code = INR) 1.39 1 0.85-1.17 [place] 853501-10-17 10:14:00 Test Item Value Reference Range Interpretation Comments Glucose Lvl (test code = Glucose Lvl) 107 70-99 [place] 853501-10-17 10:14:00 Test Item Value Reference Range Interpretation Comments BUN (test code = BUN) 13 7-22 [place] 853501-10-17 10:14:00 Test Item Value Reference Range Interpretation Comments Creatinine Lvl (test code = Creatinine 0.67 0.50-1.40 Lvl) [place]3501-10-17 10:14:00 Test Item Value Reference Range Interpretation Comments Sodium Lvl (test code = Sodium Lvl) 143 135-145 [place] 853501-10-17 10:14:00 Test Item Value Reference Range Interpretation Comments Potassium Lvl (test code = Potassium 3.3 3.5-5.1 Lvl) [place] [address]3501-10-17 10:14:00 Test Item Value Reference Range Interpretation Comments Chloride Lvl (test code = Chloride Lvl) 111 95-109 [place] 853501-10-17 10:14:00 Test Item Value Reference Range Interpretation Comments CO2 (test code = CO2) 23 24-32 [place]3501-10-17 10:14:00 Test Item Value Reference Range Interpretation Comments Calcium Lvl (test code = Calcium Lvl) 9.2 8.5-10.5 [place] [address]3501-10-17 10:14:00 Test Item Value Reference Range Interpretation Comments Total Protein (test code = Total 6.5 6.4-8.4 Protein) [facility]2021-10-17 10:14:00 Test Item Value Reference Range Interpretation Comments Albumin Lvl (test code = Albumin Lvl) 2.9 3.5-5.0 [place] [address]3501-10-17 10:14:00 Test Item Value Reference Range Interpretation Comments ALT (test code = ALT) 19 See_Comment [Auto mated message] The system which ge nerated this result transmit sarah reference range : <=65. The reference range was not used to interpr et this result as felicitas l/abnormal. [facility] [id number] 10:14:00 Test Item Value Reference Range Interpretation Comments AST (test code = AST) 13 See_Comment [Auto mated message] The system which ge nerated this result transmit sarah reference range : <=37. The reference range was not used to interpr et this result as felicitas l/abnormal. [facility] [id number] 10:14:00 Test Item Value Reference Range Interpretation Comments Alk Phos (test code = Alk Phos) 102 39-136 [facility] [id number] 10:14:00 Test Item Value Reference Range Interpretation Comments Bili Total (test code = Bili Total) 0.3 0.2-1.3 [place] [address]3501-10-17 10:14:00 Test Item Value Reference Range Interpretation Comments AGAP (test code = AGAP) 12.3 10.0-20.0 [facility] [id number] 10:14:00 Test Item Value Reference Range Interpretation Comments B/C Ratio (test code = B/C Ratio) 19 1 6-25 [facility] [id number] 10:14:00 Test Item Value Reference Range Interpretation Comments Globulin (test code = Globulin) 3.6 2.7-4.2 [facility] [id number] 10:14:00 Test Item Value Reference Range Interpretation Comments A/G Ratio (test code = A/G Ratio) 0.8 1 0.7-1.6 [facility] [id number] 10:14:00 Test Item Value Reference Range Interpretation Comments eGFR (test code = eGFR) 91 [facility]weoxaTURQXUYVZK6835-29-12 10:14:00 Test Item Value Reference Range Interpretation Comments WBC (test code = WBC) 9.8 3.7-10.4 [facility] CentralKroohigMLWJQSGAPK7900-65-64 10:14:00 Test Item Value Reference Range Interpretation Comments RBC (test code = RBC) 3.87 4.20-5.40 [facility] CentralUlqahrmDFGTNIWVAU3797-99-50 10:14:00 Test Item Value Reference Range Interpretation Comments Hgb (test code = Hgb) 11.0 12.0-16.0 [place] 139731-10-17 10:14:00 Test Item Value Reference Range Interpretation Comments Hct (test code = Hct) 33.3 36.0-48.0 [place] 139731-10-17 10:14:00 Test Item Value Reference Range Interpretation Comments MCV (test code = MCV) 86.1 80.0-98.0 [place] 139731-10-17 10:14:00 Test Item Value Reference Range Interpretation Comments MCH (test code = MCH) 28.4 pg 27.0-31.0 [facility] CentralTikjlxsSUPAGAMRPG4606-00-98 10:14:00 Test Item Value Reference Range Interpretation Comments MCHC (test code = MCHC) 33.0 32.0-36.0 [facility] CentralEmltuhkPSSFXNTKVL2668-49-23 10:14:00 Test Item Value Reference Range Interpretation Comments RDW (test code = RDW) 15.4 11.5-14.5 [facility] CentralKtbrhfuIAVKKTHLGW0196-47-26 10:14:00 Test Item Value Reference Range Interpretation Comments Platelet (test code = Platelet) 418 133-450 [facility] CentralFctoqspKTRKVCUULM9960-99-96 10:14:00 Test Item Value Reference Range Interpretation Comments MPV (test code = MPV) 8.1 7.4-10.4 [place] 139731-10-17 10:14:00 Test Item Value Reference Range Interpretation Comments PTT (test code = PTT) 31.9 s 22.9-35.8 [place] 139731-10-17 10:14:00 Test Item Value Reference Range Interpretation Comments Segs (test code = Segs) 78.7 45.0-75.0 [place] 139731-10-17 10:14:00 Test Item Value Reference Range Interpretation Comments Lymphocytes (test code = Lymphocytes) 13.1 20.0-40.0 [place] 139731-10-17 10:14:00 Test Item Value Reference Range Interpretation Comments Monocytes (test code = Monocytes) 6.8 2.0-12.0 [place] 139731-10-17 10:14:00 Test Item Value Reference Range Interpretation Comments Eosinophils (test code = 0.7 See_Comment [A utomated message] The Eosinophils) system which ge nerated this result tra nsmitted reference range : <=4.0. The reference r arelis was not used to int erpret this result as normal/abnormal . [place] 139731-10-17 10:14:00 Test Item Value Reference Range Interpretation Comments Basophils (test code = 0.7 See_Comment [Aut omated message] The Basophils) system which ge nerated this result tra nsmitted reference range : <=1.0. The reference r arelis was not used to int erpret this result as normal/abnormal . [place]731-10-17 10:14:00 Test Item Value Reference Range Interpretation Comments Neutrophils # (test code = Neutrophils 7.7 1.5-8.1 #) [facility] CentralUlrjecyGTTAZPEVQF0923-00-51 10:14:00 Test Item Value Reference Range Interpretation Comments Lymphocytes # (test code = Lymphocytes 1.3 1.0-5.5 #) [place] 139731-10-17 10:14:00 Test Item Value Reference Range Interpretation Comments Monocytes # (test code 0.7 See_Comment [Aut omated message] The = Monocytes #) system which generated this result tra nsmitted reference range : <=0.8. The reference r arelis was not used to int erpret this result as normal/abnormal . [facility]my[facility]myLVRBNTSSNV8078-39-83 10:14:00 Test Item Value Reference Range Interpretation Comments Eosinophils # (test code 0.1 See_Comment [A utomated message] The = Eosinophils #) system whic h generated this result tra nsmitted reference range : <=0.5. The reference r arelis was not used to int erpret this result as normal/abnormal . [facility] CentralUodvqxtKHUMHLJLSR8261-24-96 10:14:00 Test Item Value Reference Range Interpretation Comments Basophils # (test code 0.1 See_Comment [Aut omated message] The = Basophils #) system which generated this result tra nsmitted reference range : <=0.2. The reference r arelis was not used to int erpret this result as normal/abnormal . [facility] CentralGhglmfyLNZYXYFVSO1341-29-65 10:14:00 Test Item Value Reference Range Interpretation Comments PT (test code = PT) 16.8 s 12.0-14.7 [facility] CentralZgncwxrKOIWZKGZER2843-40-27 10:14:00 Test Item Value Reference Range Interpretation Comments INR (test code = INR) 1.39 1 0.85-1.17 [facility]2021-10-17 10:14:00 Test Item Value Reference Range Interpretation Comments Glucose Lvl (test code = Glucose Lvl) 107 70-99 [facility]2021-10-17 10:14:00 Test Item Value Reference Range Interpretation Comments BUN (test code = BUN) 13 7-22 [place] 853501-10-17 10:14:00 Test Item Value Reference Range Interpretation Comments Creatinine Lvl (test code = Creatinine 0.67 0.50-1.40 Lvl) [facility]2021-10-17 10:14:00 Test Item Value Reference Range Interpretation Comments Sodium Lvl (test code = Sodium Lvl) 143 135-145 [facility]2021-10-17 10:14:00 Test Item Value Reference Range Interpretation Comments Potassium Lvl (test code = Potassium 3.3 3.5-5.1 Lvl) [place] 853501-10-17 10:14:00 Test Item Value Reference Range Interpretation Comments Chloride Lvl (test code = Chloride Lvl) 111 95-109 [place] 853501-10-17 10:14:00 Test Item Value Reference Range Interpretation Comments CO2 (test code = CO2) 23 24-32 [facility]2021-10-17 10:14:00 Test Item Value Reference Range Interpretation Comments Calcium Lvl (test code = Calcium Lvl) 9.2 8.5-10.5 [place] 853501-10-17 10:14:00 Test Item Value Reference Range Interpretation Comments Total Protein (test code = Total 6.5 6.4-8.4 Protein) [place] 853501-10-17 10:14:00 Test Item Value Reference Range Interpretation Comments Albumin Lvl (test code = Albumin Lvl) 2.9 3.5-5.0 [place] 853501-10-17 10:14:00 Test Item Value Reference Range Interpretation Comments ALT (test code = ALT) 19 See_Comment [Auto mated message] The system which ge nerated this result transmit sarah reference range : <=65. The reference range was not used to interpr et this result as felicitas l/abnormal. [place] 853501-10-17 10:14:00 Test Item Value Reference Range Interpretation Comments AST (test code = AST) 13 See_Comment [Auto mated message] The system which ge nerated this result transmit sarah reference range : <=37. The reference range was not used to interpr et this result as felicitas l/abnormal. [place] 853501-10-17 10:14:00 Test Item Value Reference Range Interpretation Comments Alk Phos (test code = Alk Phos) 102 39-136 [place] 853501-10-17 10:14:00 Test Item Value Reference Range Interpretation Comments Bili Total (test code = Bili Total) 0.3 0.2-1.3 [place] 853501-10-17 10:14:00 Test Item Value Reference Range Interpretation Comments AGAP (test code = AGAP) 12.3 10.0-20.0 [place] 853501-10-17 10:14:00 Test Item Value Reference Range Interpretation Comments B/C Ratio (test code = B/C Ratio) 19 1 6-25 [place] 853501-10-17 10:14:00 Test Item Value Reference Range Interpretation Comments Globulin (test code = Globulin) 3.6 2.7-4.2 [place] [address]-10-17 10:14:00 Test Item Value Reference Range Interpretation Comments A/G Ratio (test code = A/G Ratio) 0.8 1 0.7-1.6 [place] [address]-10-17 10:14:00 Test Item Value Reference Range Interpretation Comments eGFR (test code = eGFR) 91 [facility] CentralQynatzsADLQKNUWGW5126-07-77 10:14:00 Test Item Value Reference Range Interpretation Comments WBC (test code = WBC) 9.8 3.7-10.4 [facility] CentralTupibjeJOPLGLECPM5806-67-59 10:14:00 Test Item Value Reference Range Interpretation Comments RBC (test code = RBC) 3.87 4.20-5.40 [facility] CentralAwutyitXPCQPJVMPR8962-19-41 10:14:00 Test Item Value Reference Range Interpretation Comments Hgb (test code = Hgb) 11.0 12.0-16.0 [facility] CentralGqpcaipAHRKOVDHRX8428-44-95 10:14:00 Test Item Value Reference Range Interpretation Comments Hct (test code = Hct) 33.3 36.0-48.0 [facility] CentralTqpfpwuWNYHILDFVT0614-12-27 10:14:00 Test Item Value Reference Range Interpretation Comments MCV (test code = MCV) 86.1 80.0-98.0 [facility] CentralPqphrwnPVALMXTIVK2230-34-42 10:14:00 Test Item Value Reference Range Interpretation Comments MCH (test code = MCH) 28.4 pg 27.0-31.0 [facility] CentralDhpezudGCJDLSQJWK4111-23-98 10:14:00 Test Item Value Reference Range Interpretation Comments MCHC (test code = MCHC) 33.0 32.0-36.0 [facility] CentralSdiwwhxOGLUQPTYSI0793-85-57 10:14:00 Test Item Value Reference Range Interpretation Comments RDW (test code = RDW) 15.4 11.5-14.5 [facility] CentralGvtkdijSHXFMWXMCT2709-43-61 10:14:00 Test Item Value Reference Range Interpretation Comments Platelet (test code = Platelet) 418 133-450 [facility] CentralGervstcFAYDWNRJTR2003-75-64 10:14:00 Test Item Value Reference Range Interpretation Comments MPV (test code = MPV) 8.1 7.4-10.4 [facility] CentralYxyiudhLUQYGQONIX1570-89-71 10:14:00 Test Item Value Reference Range Interpretation Comments PTT (test code = PTT) 31.9 s 22.9-35.8 [facility] CentralSiqkivzDPFRQDFEEX8507-43-98 10:14:00 Test Item Value Reference Range Interpretation Comments Segs (test code = Segs) 78.7 45.0-75.0 [facility] CentralWycvwcuNAXAAEASZL3685-18-39 10:14:00 Test Item Value Reference Range Interpretation Comments Lymphocytes (test code = Lymphocytes) 13.1 20.0-40.0 [place] 139731-10-17 10:14:00 Test Item Value Reference Range Interpretation Comments Monocytes (test code = Monocytes) 6.8 2.0-12.0 [place] 139731-10-17 10:14:00 Test Item Value Reference Range Interpretation Comments Eosinophils (test code = 0.7 See_Comment [A utomated message] The Eosinophils) system which ge nerated this result tra nsmitted reference range : <=4.0. The reference r arelis was not used to int erpret this result as normal/abnormal . [place] 139731-10-17 10:14:00 Test Item Value Reference Range Interpretation Comments Basophils (test code = 0.7 See_Comment [Aut omated message] The Basophils) system which ge nerated this result tra nsmitted reference range : <=1.0. The reference r arelis was not used to int erpret this result as normal/abnormal . [place] [address]-10-17 10:14:00 Test Item Value Reference Range Interpretation Comments Neutrophils # (test code = Neutrophils 7.7 1.5-8.1 #) [place] [address]-10-17 10:14:00 Test Item Value Reference Range Interpretation Comments Lymphocytes # (test code = Lymphocytes 1.3 1.0-5.5 #) [place] [address]-10-17 10:14:00 Test Item Value Reference Range Interpretation Comments Monocytes # (test code 0.7 See_Comment [Aut omated message] The = Monocytes #) system which generated this result tra nsmitted reference range : <=0.8. The reference r arelis was not used to int erpret this result as normal/abnormal . [place] [address]-10-17 10:14:00 Test Item Value Reference Range Interpretation Comments Eosinophils # (test code 0.1 See_Comment [A utomated message] The = Eosinophils #) system whic h generated this result tra nsmitted reference range : <=0.5. The reference r arelis was not used to int erpret this result as normal/abnormal . [place] [address]-10-17 10:14:00 Test Item Value Reference Range Interpretation Comments Basophils # (test code 0.1 See_Comment [Aut omated message] The = Basophils #) system which generated this result tra nsmitted reference range : <=0.2. The reference r arelis was not used to int erpret this result as normal/abnormal . [place] 139731-10-17 10:14:00 Test Item Value Reference Range Interpretation Comments PT (test code = PT) 16.8 s 12.0-14.7 [place] [address]-10-17 10:14:00 Test Item Value Reference Range Interpretation Comments INR (test code = INR) 1.39 1 0.85-1.17 [place] 853501-10-17 10:14:00 Test Item Value Reference Range Interpretation Comments Glucose Lvl (test code = Glucose Lvl) 107 70-99 [place] 853501-10-17 10:14:00 Test Item Value Reference Range Interpretation Comments BUN (test code = BUN) 13 7-22 [place] 853501-10-17 10:14:00 Test Item Value Reference Range Interpretation Comments Creatinine Lvl (test code = Creatinine 0.67 0.50-1.40 Lvl) [place] 853501-10-17 10:14:00 Test Item Value Reference Range Interpretation Comments Sodium Lvl (test code = Sodium Lvl) 143 135-145 [place] 853501-10-17 10:14:00 Test Item Value Reference Range Interpretation Comments Potassium Lvl (test code = Potassium 3.3 3.5-5.1 Lvl) [place] 853501-10-17 10:14:00 Test Item Value Reference Range Interpretation Comments Chloride Lvl (test code = Chloride Lvl) 111 95-109 [place] 853501-10-17 10:14:00 Test Item Value Reference Range Interpretation Comments CO2 (test code = CO2) 23 24-32 [place] 853501-10-17 10:14:00 Test Item Value Reference Range Interpretation Comments Calcium Lvl (test code = Calcium Lvl) 9.2 8.5-10.5 [place] 853501-10-17 10:14:00 Test Item Value Reference Range Interpretation Comments Total Protein (test code = Total 6.5 6.4-8.4 Protein) [place] 853501-10-17 10:14:00 Test Item Value Reference Range Interpretation Comments Albumin Lvl (test code = Albumin Lvl) 2.9 3.5-5.0 [id number]:14:00 Test Item Value Reference Range Interpretation Comments ALT (test code = ALT) 19 See_Comment [Auto mated message] The system which ge nerated this result transmit sarah reference range : <=65. The reference range was not used to interpr et this result as felicitas l/abnormal. [facility] [id number] 10:14:00 Test Item Value Reference Range Interpretation Comments AST (test code = AST) 13 See_Comment [Auto mated message] The system which ge nerated this result transmit sarah reference range : <=37. The reference range was not used to interpr et this result as felicitas l/abnormal. [facility] [id number] 10:14:00 Test Item Value Reference Range Interpretation Comments Alk Phos (test code = Alk Phos) 102 39-136 [facility] [id number] 10:14:00 Test Item Value Reference Range Interpretation Comments Bili Total (test code = Bili Total) 0.3 0.2-1.3 [facility] [id number] 10:14:00 Test Item Value Reference Range Interpretation Comments AGAP (test code = AGAP) 12.3 10.0-20.0 [facility] [id number] 10:14:00 Test Item Value Reference Range Interpretation Comments B/C Ratio (test code = B/C Ratio) 19 1 6-25 [facility] [id number] 10:14:00 Test Item Value Reference Range Interpretation Comments Globulin (test code = Globulin) 3.6 2.7-4.2 [facility] [id number] 10:14:00 Test Item Value Reference Range Interpretation Comments A/G Ratio (test code = A/G Ratio) 0.8 1 0.7-1.6 [facility] [id number] 10:14:00 Test Item Value Reference Range Interpretation Comments eGFR (test code = eGFR) 91 [place] 139731-10-17 10:14:00 Test Item Value Reference Range Interpretation Comments WBC (test code = WBC) 9.8 3.7-10.4 [place] 139731-10-17 10:14:00 Test Item Value Reference Range Interpretation Comments RBC (test code = RBC) 3.87 4.20-5.40 [place] 139731-10-17 10:14:00 Test Item Value Reference Range Interpretation Comments Hgb (test code = Hgb) 11.0 12.0-16.0 [place] 139731-10-17 10:14:00 Test Item Value Reference Range Interpretation Comments Hct (test code = Hct) 33.3 36.0-48.0 [place] 139731-10-17 10:14:00 Test Item Value Reference Range Interpretation Comments MCV (test code = MCV) 86.1 80.0-98.0 [place] 139731-10-17 10:14:00 Test Item Value Reference Range Interpretation Comments MCH (test code = MCH) 28.4 pg 27.0-31.0 [place] 139731-10-17 10:14:00 Test Item Value Reference Range Interpretation Comments MCHC (test code = MCHC) 33.0 32.0-36.0 [facility] CentralXumgdgeJZEIJZKDUV9275-17-42 10:14:00 Test Item Value Reference Range Interpretation Comments RDW (test code = RDW) 15.4 11.5-14.5 [facility] CentralTxzaqmqRIPBAXPUBQ1661-06-81 10:14:00 Test Item Value Reference Range Interpretation Comments Platelet (test code = Platelet) 418 133-450 [facility] CentralXmhbceqYWCAGNTQAZ4367-12-48 10:14:00 Test Item Value Reference Range Interpretation Comments MPV (test code = MPV) 8.1 7.4-10.4 [place] [address]-10-17 10:14:00 Test Item Value Reference Range Interpretation Comments PTT (test code = PTT) 31.9 s 22.9-35.8 [place] 139731-10-17 10:14:00 Test Item Value Reference Range Interpretation Comments Segs (test code = Segs) 78.7 45.0-75.0 [place] 139731-10-17 10:14:00 Test Item Value Reference Range Interpretation Comments Lymphocytes (test code = Lymphocytes) 13.1 20.0-40.0 [place] 139731-10-17 10:14:00 Test Item Value Reference Range Interpretation Comments Monocytes (test code = Monocytes) 6.8 2.0-12.0 [place] 139731-10-17 10:14:00 Test Item Value Reference Range Interpretation Comments Eosinophils (test code = 0.7 See_Comment [A utomated message] The Eosinophils) system which ge nerated this result tra nsmitted reference range : <=4.0. The reference r arelis was not used to int erpret this result as normal/abnormal . [place] 139731-10-17 10:14:00 Test Item Value Reference Range Interpretation Comments Basophils (test code = 0.7 See_Comment [Aut omated message] The Basophils) system which ge nerated this result tra nsmitted reference range : <=1.0. The reference r arelis was not used to int erpret this result as normal/abnormal . [place] 139731-10-17 10:14:00 Test Item Value Reference Range Interpretation Comments Neutrophils # (test code = Neutrophils 7.7 1.5-8.1 #) [place] 139731-10-17 10:14:00 Test Item Value Reference Range Interpretation Comments Lymphocytes # (test code = Lymphocytes 1.3 1.0-5.5 #) [place] 139731-10-17 10:14:00 Test Item Value Reference Range Interpretation Comments Monocytes # (test code 0.7 See_Comment [Aut omated message] The = Monocytes #) system which generated this result tra nsmitted reference range : <=0.8. The reference r arelis was not used to int erpret this result as normal/abnormal . [facility] CentralQbintqbNPYGCTQZSU1777-21-38 10:14:00 Test Item Value Reference Range Interpretation Comments Eosinophils # (test code 0.1 See_Comment [A utomated message] The = Eosinophils #) system whic h generated this result tra nsmitted reference range : <=0.5. The reference r arelis was not used to int erpret this result as normal/abnormal . [facility] CentralFlqhgjcUCYVIBMQSH3724-67-03 10:14:00 Test Item Value Reference Range Interpretation Comments Basophils # (test code 0.1 See_Comment [Aut omated message] The = Basophils #) system which generated this result tra nsmitted reference range : <=0.2. The reference r arelis was not used to int erpret this result as normal/abnormal . [place] 139731-10-17 10:14:00 Test Item Value Reference Range Interpretation Comments PT (test code = PT) 16.8 s 12.0-14.7 [place] [address]-10-17 10:14:00 Test Item Value Reference Range Interpretation Comments INR (test code = INR) 1.39 1 0.85-1.17 [place] 853501-10-17 10:14:00 Test Item Value Reference Range Interpretation Comments Glucose Lvl (test code = Glucose Lvl) 107 70-99 [place] 853501-10-17 10:14:00 Test Item Value Reference Range Interpretation Comments BUN (test code = BUN) 13 7-22 [place] 853501-10-17 10:14:00 Test Item Value Reference Range Interpretation Comments Creatinine Lvl (test code = Creatinine 0.67 0.50-1.40 Lvl) [place] 853501-10-17 10:14:00 Test Item Value Reference Range Interpretation Comments Sodium Lvl (test code = Sodium Lvl) 143 135-145 [place] 853501-10-17 10:14:00 Test Item Value Reference Range Interpretation Comments Potassium Lvl (test code = Potassium 3.3 3.5-5.1 Lvl) [place] 853501-10-17 10:14:00 Test Item Value Reference Range Interpretation Comments Chloride Lvl (test code = Chloride Lvl) 111 95-109 [place] 853501-10-17 10:14:00 Test Item Value Reference Range Interpretation Comments CO2 (test code = CO2) 23 24-32 [place] 853501-10-17 10:14:00 Test Item Value Reference Range Interpretation Comments Calcium Lvl (test code = Calcium Lvl) 9.2 8.5-10.5 [place] 853501-10-17 10:14:00 Test Item Value Reference Range Interpretation Comments Total Protein (test code = Total 6.5 6.4-8.4 Protein) [place] 853501-10-17 10:14:00 Test Item Value Reference Range Interpretation Comments Albumin Lvl (test code = Albumin Lvl) 2.9 3.5-5.0 [place] 853501-10-17 10:14:00 Test Item Value Reference Range Interpretation Comments ALT (test code = ALT) 19 See_Comment [Auto mated message] The system which ge nerated this result transmit sarah reference range : <=65. The reference range was not used to interpr et this result as felicitas l/abnormal. [facility]2021-10-17 10:14:00 Test Item Value Reference Range Interpretation Comments AST (test code = AST) 13 See_Comment [Auto mated message] The system which ge nerated this result transmit sarah reference range : <=37. The reference range was not used to interpr et this result as felicitas l/abnormal. [facility] [id number] 10:14:00 Test Item Value Reference Range Interpretation Comments Alk Phos (test code = Alk Phos) 102 39-136 [facility] [id number] 10:14:00 Test Item Value Reference Range Interpretation Comments Bili Total (test code = Bili Total) 0.3 0.2-1.3 [place] 853501-10-17 10:14:00 Test Item Value Reference Range Interpretation Comments AGAP (test code = AGAP) 12.3 10.0-20.0 [facility] [id number] 10:14:00 Test Item Value Reference Range Interpretation Comments B/C Ratio (test code = B/C Ratio) 19 1 6-25 [facility] [id number] 10:14:00 Test Item Value Reference Range Interpretation Comments Globulin (test code = Globulin) 3.6 2.7-4.2 [facility] [id number] 10:14:00 Test Item Value Reference Range Interpretation Comments A/G Ratio (test code = A/G Ratio) 0.8 1 0.7-1.6 [facility] [id number] 10:14:00 Test Item Value Reference Range Interpretation Comments eGFR (test code = eGFR) 91 [facility] CentralDbjugtmEOSKVOIAOI1063-94-74 10:14:00 Test Item Value Reference Range Interpretation Comments WBC (test code = WBC) 9.8 3.7-10.4 [place] 139731-10-17 10:14:00 Test Item Value Reference Range Interpretation Comments RBC (test code = RBC) 3.87 4.20-5.40 [place] 139731-10-17 10:14:00 Test Item Value Reference Range Interpretation Comments Hgb (test code = Hgb) 11.0 12.0-16.0 [place] 139731-10-17 10:14:00 Test Item Value Reference Range Interpretation Comments Hct (test code = Hct) 33.3 36.0-48.0 [place] 139731-10-17 10:14:00 Test Item Value Reference Range Interpretation Comments MCV (test code = MCV) 86.1 80.0-98.0 [facility] CentralEzpvlcpZHPGRRDLKK6850-83-25 10:14:00 Test Item Value Reference Range Interpretation Comments MCH (test code = MCH) 28.4 pg 27.0-31.0 [facility] CentralHiguhqaUGBXSJLQEL8349-69-76 10:14:00 Test Item Value Reference Range Interpretation Comments MCHC (test code = MCHC) 33.0 32.0-36.0 [place] 139731-10-17 10:14:00 Test Item Value Reference Range Interpretation Comments RDW (test code = RDW) 15.4 11.5-14.5 [place] 139731-10-17 10:14:00 Test Item Value Reference Range Interpretation Comments Platelet (test code = Platelet) 418 133-450 [facility] CentralJojlpsjDNHXBDKOGG8178-23-54 10:14:00 Test Item Value Reference Range Interpretation Comments MPV (test code = MPV) 8.1 7.4-10.4 [place] 139731-10-17 10:14:00 Test Item Value Reference Range Interpretation Comments PTT (test code = PTT) 31.9 s 22.9-35.8 [place] 139731-10-17 10:14:00 Test Item Value Reference Range Interpretation Comments Segs (test code = Segs) 78.7 45.0-75.0 [place] [address]-10-17 10:14:00 Test Item Value Reference Range Interpretation Comments Lymphocytes (test code = Lymphocytes) 13.1 20.0-40.0 [place] [address]-10-17 10:14:00 Test Item Value Reference Range Interpretation Comments Monocytes (test code = Monocytes) 6.8 2.0-12.0 [place] 139731-10-17 10:14:00 Test Item Value Reference Range Interpretation Comments Eosinophils (test code = 0.7 See_Comment [A utomated message] The Eosinophils) system which ge nerated this result tra nsmitted reference range : <=4.0. The reference r arelis was not used to int erpret this result as normal/abnormal . [place] 139731-10-17 10:14:00 Test Item Value Reference Range Interpretation Comments Basophils (test code = 0.7 See_Comment [Aut omated message] The Basophils) system which ge nerated this result tra nsmitted reference range : <=1.0. The reference r arelis was not used to int erpret this result as normal/abnormal . [place] 139731-10-17 10:14:00 Test Item Value Reference Range Interpretation Comments Neutrophils # (test code = Neutrophils 7.7 1.5-8.1 #) [place] 139731-10-17 10:14:00 Test Item Value Reference Range Interpretation Comments Lymphocytes # (test code = Lymphocytes 1.3 1.0-5.5 #) [facility] CentralLlvxnbaCHUMPFADYC6942-02-97 10:14:00 Test Item Value Reference Range Interpretation Comments Monocytes # (test code 0.7 See_Comment [Aut omated message] The = Monocytes #) system which generated this result tra nsmitted reference range : <=0.8. The reference r arelis was not used to int erpret this result as normal/abnormal . [facility] CentralDhgtdceLVFPYWYUNS5154-36-50 10:14:00 Test Item Value Reference Range Interpretation Comments Eosinophils # (test code 0.1 See_Comment [A utomated message] The = Eosinophils #) system whic h generated this result tra nsmitted reference range : <=0.5. The reference r arelis was not used to int erpret this result as normal/abnormal . [facility] CentralOmgtilhSVQZYBMQFG8898-29-64 10:14:00 Test Item Value Reference Range Interpretation Comments Basophils # (test code 0.1 See_Comment [Aut omated message] The = Basophils #) system which generated this result tra nsmitted reference range : <=0.2. The reference r arelis was not used to int erpret this result as normal/abnormal . [place] 139731-10-17 10:14:00 Test Item Value Reference Range Interpretation Comments PT (test code = PT) 16.8 s 12.0-14.7 [facility]errereJNRCXBWHMA2228-45-24 10:14:00 Test Item Value Reference Range Interpretation Comments INR (test code = INR) 1.39 1 0.85-1.17 [place] 853501-10-17 10:14:00 Test Item Value Reference Range Interpretation Comments Glucose Lvl (test code = Glucose Lvl) 107 70-99 [place] 853501-10-17 10:14:00 Test Item Value Reference Range Interpretation Comments BUN (test code = BUN) 13 7-22 [place] 853501-10-17 10:14:00 Test Item Value Reference Range Interpretation Comments Creatinine Lvl (test code = Creatinine 0.67 0.50-1.40 Lvl) [place] 853501-10-17 10:14:00 Test Item Value Reference Range Interpretation Comments Sodium Lvl (test code = Sodium Lvl) 143 135-145 [place] 853501-10-17 10:14:00 Test Item Value Reference Range Interpretation Comments Potassium Lvl (test code = Potassium 3.3 3.5-5.1 Lvl) [place] 853501-10-17 10:14:00 Test Item Value Reference Range Interpretation Comments Chloride Lvl (test code = Chloride Lvl) 111 95-109 [place] 853501-10-17 10:14:00 Test Item Value Reference Range Interpretation Comments CO2 (test code = CO2) 23 24-32 [place] 853501-10-17 10:14:00 Test Item Value Reference Range Interpretation Comments Calcium Lvl (test code = Calcium Lvl) 9.2 8.5-10.5 [place] 853501-10-17 10:14:00 Test Item Value Reference Range Interpretation Comments Total Protein (test code = Total 6.5 6.4-8.4 Protein) [place] 853501-10-17 10:14:00 Test Item Value Reference Range Interpretation Comments Albumin Lvl (test code = Albumin Lvl) 2.9 3.5-5.0 [place] 853501-10-17 10:14:00 Test Item Value Reference Range Interpretation Comments ALT (test code = ALT) 19 See_Comment [Auto mated message] The system which ge nerated this result transmit sarah reference range : <=65. The reference range was not used to interpr et this result as felicitas l/abnormal. [facility] [id number] 10:14:00 Test Item Value Reference Range Interpretation Comments AST (test code = AST) 13 See_Comment [Auto mated message] The system which ge nerated this result transmit sarah reference range : <=37. The reference range was not used to interpr et this result as felicitas l/abnormal. [facility] [id number] 10:14:00 Test Item Value Reference Range Interpretation Comments Alk Phos (test code = Alk Phos) 102 39-136 [facility] [id number] 10:14:00 Test Item Value Reference Range Interpretation Comments Glucose Lvl (test code = Glucose Lvl) 107 70-99 [facility] [id number] 10:14:00 Test Item Value Reference Range Interpretation Comments BUN (test code = BUN) 13 7-22 [facility] [id number] 10:14:00 Test Item Value Reference Range Interpretation Comments Creatinine Lvl (test code = Creatinine 0.67 0.50-1.40 Lvl) [facility] [id number] 10:14:00 Test Item Value Reference Range Interpretation Comments Sodium Lvl (test code = Sodium Lvl) 143 135-145 [facility] [id number] 10:14:00 Test Item Value Reference Range Interpretation Comments Potassium Lvl (test code = Potassium 3.3 3.5-5.1 Lvl) [facility] [id number] 10:14:00 Test Item Value Reference Range Interpretation Comments Chloride Lvl (test code = Chloride Lvl) 111 95-109 [facility] [id number] 10:14:00 Test Item Value Reference Range Interpretation Comments CO2 (test code = CO2) 23 24-32 [facility] [id number] 10:14:00 Test Item Value Reference Range Interpretation Comments Calcium Lvl (test code = Calcium Lvl) 9.2 8.5-10.5 [facility] [id number] 10:14:00 Test Item Value Reference Range Interpretation Comments Total Protein (test code = Total 6.5 6.4-8.4 Protein) [facility] [id number] 10:14:00 Test Item Value Reference Range Interpretation Comments Bili Total (test code = Bili Total) 0.3 0.2-1.3 [place] 853501-10-17 10:14:00 Test Item Value Reference Range Interpretation Comments Albumin Lvl (test code = Albumin Lvl) 2.9 3.5-5.0 [facility] [id number] 10:14:00 Test Item Value Reference Range Interpretation Comments ALT (test code = ALT) 19 See_Comment [Auto mated message] The system which ge nerated this result transmit sarah reference range : <=65. The reference range was not used to interpr et this result as felicitas l/abnormal. [facility] [id number] 10:14:00 Test Item Value Reference Range Interpretation Comments AST (test code = AST) 13 See_Comment [Auto mated message] The system which ge nerated this result transmit sarah reference range : <=37. The reference range was not used to interpr et this result as felicitas l/abnormal. [facility] [id number] 10:14:00 Test Item Value Reference Range Interpretation Comments Alk Phos (test code = Alk Phos) 102 39-136 [facility] [id number] 10:14:00 Test Item Value Reference Range Interpretation Comments Bili Total (test code = Bili Total) 0.3 0.2-1.3 [facility] [id number] 10:14:00 Test Item Value Reference Range Interpretation Comments AGAP (test code = AGAP) 12.3 10.0-20.0 [facility] [id number] 10:14:00 Test Item Value Reference Range Interpretation Comments B/C Ratio (test code = B/C Ratio) 19 1 6-25 [facility] [id number] 10:14:00 Test Item Value Reference Range Interpretation Comments Globulin (test code = Globulin) 3.6 2.7-4.2 [facility] [id number] 10:14:00 Test Item Value Reference Range Interpretation Comments A/G Ratio (test code = A/G Ratio) 0.8 1 0.7-1.6 [facility] [id number] 10:14:00 Test Item Value Reference Range Interpretation Comments eGFR (test code = eGFR) 91 [facility] [id number] 10:14:00 Test Item Value Reference Range Interpretation Comments AGAP (test code = AGAP) 12.3 10.0-20.0 [id number] 10:14:00 Test Item Value Reference Range Interpretation Comments WBC (test code = WBC) 9.8 3.7-10.4 [facility] CentralFiunjoxVTNMSNYTVV9019-35-19 10:14:00 Test Item Value Reference Range Interpretation Comments RBC (test code = RBC) 3.87 4.20-5.40 [facility] CentralKyuiohhXPKFQSOGMM8824-48-28 10:14:00 Test Item Value Reference Range Interpretation Comments Hgb (test code = Hgb) 11.0 12.0-16.0 [facility] CentralHabnnxjVLVPZUGWDL6554-32-41 10:14:00 Test Item Value Reference Range Interpretation Comments Hct (test code = Hct) 33.3 36.0-48.0 [facility] CentralIplskxeAQQCMQNQTW8194-78-37 10:14:00 Test Item Value Reference Range Interpretation Comments MCV (test code = MCV) 86.1 80.0-98.0 [facility] CentralUwgtgtbQMLTCXWNZN7663-37-88 10:14:00 Test Item Value Reference Range Interpretation Comments MCH (test code = MCH) 28.4 pg 27.0-31.0 [facility] CentralSsrufncMCUESNMPOH9709-25-45 10:14:00 Test Item Value Reference Range Interpretation Comments MCHC (test code = MCHC) 33.0 32.0-36.0 [facility] CentralYzufojpXNTESFICDW1651-61-08 10:14:00 Test Item Value Reference Range Interpretation Comments RDW (test code = RDW) 15.4 11.5-14.5 [facility] CentralYceekjoDIZSHZSQTK6074-63-06 10:14:00 Test Item Value Reference Range Interpretation Comments Platelet (test code = Platelet) 418 133-450 [facility] CentralFekofguLZFMODTLKX4431-84-60 10:14:00 Test Item Value Reference Range Interpretation Comments MPV (test code = MPV) 8.1 7.4-10.4 [facility]2021-10-17 10:14:00 Test Item Value Reference Range Interpretation Comments B/C Ratio (test code = B/C Ratio) 19 1 6-25 [facility] CentralDjrxmxqKHAXUMPNWF7576-09-19 10:14:00 Test Item Value Reference Range Interpretation Comments PTT (test code = PTT) 31.9 s 22.9-35.8 [facility] CentralRbutnskFAISHOHECF6511-25-05 10:14:00 Test Item Value Reference Range Interpretation Comments Segs (test code = Segs) 78.7 45.0-75.0 [facility] CentralPpbhiphFJWIHGXFMS9523-24-92 10:14:00 Test Item Value Reference Range Interpretation Comments Lymphocytes (test code = Lymphocytes) 13.1 20.0-40.0 [place] 139731-10-17 10:14:00 Test Item Value Reference Range Interpretation Comments Monocytes (test code = Monocytes) 6.8 2.0-12.0 [facility] CentralWobtytjSSGCCNVBGK0585-17-05 10:14:00 Test Item Value Reference Range Interpretation Comments Eosinophils (test code = 0.7 See_Comment [A utomated message] The Eosinophils) system which ge nerated this result tra nsmitted reference range : <=4.0. The reference r arelis was not used to int erpret this result as normal/abnormal . [facility] [id number] 10:14:00 Test Item Value Reference Range Interpretation Comments Basophils (test code = 0.7 See_Comment [Aut omated message] The Basophils) system which ge nerated this result tra nsmitted reference range : <=1.0. The reference r arelis was not used to int erpret this result as normal/abnormal . [facility] CentralGvvhogoATRORRNPQN2947-79-62 10:14:00 Test Item Value Reference Range Interpretation Comments Neutrophils # (test code = Neutrophils 7.7 1.5-8.1 #) [facility] CentralXqdigbhKQNIWWIRBR0912-47-12 10:14:00 Test Item Value Reference Range Interpretation Comments Lymphocytes # (test code = Lymphocytes 1.3 1.0-5.5 #) [facility] CentralXqaudptRNEPHFKWHF2883-56-32 10:14:00 Test Item Value Reference Range Interpretation Comments Monocytes # (test code 0.7 See_Comment [Aut omated message] The = Monocytes #) system which generated this result tra nsmitted reference range : <=0.8. The reference r arelis was not used to int erpret this result as normal/abnormal . [place] 139731-10-17 10:14:00 Test Item Value Reference Range Interpretation Comments Eosinophils # (test code 0.1 See_Comment [A utomated message] The = Eosinophils #) system whic h generated this result tra nsmitted reference range : <=0.5. The reference r arelis was not used to int erpret this result as normal/abnormal . [facility] [id number] 10:14:00 Test Item Value Reference Range Interpretation Comments Globulin (test code = Globulin) 3.6 2.7-4.2 [place] [address]-10-17 10:14:00 Test Item Value Reference Range Interpretation Comments Basophils # (test code 0.1 See_Comment [Aut omated message] The = Basophils #) system which generated this result tra nsmitted reference range : <=0.2. The reference r arelis was not used to int erpret this result as normal/abnormal . [place] 139731-10-17 10:14:00 Test Item Value Reference Range Interpretation Comments PT (test code = PT) 16.8 s 12.0-14.7 [place] [address]-10-17 10:14:00 Test Item Value Reference Range Interpretation Comments INR (test code = INR) 1.39 1 0.85-1.17 [place] 853501-10-17 10:14:00 Test Item Value Reference Range Interpretation Comments A/G Ratio (test code = A/G Ratio) 0.8 1 0.7-1.6 [place] 853501-10-17 10:14:00 Test Item Value Reference Range Interpretation Comments eGFR (test code = eGFR) 91 [place] 139731-10-17 10:14:00 Test Item Value Reference Range Interpretation Comments WBC (test code = WBC) 9.8 3.7-10.4 [place] 139731-10-17 10:14:00 Test Item Value Reference Range Interpretation Comments RBC (test code = RBC) 3.87 4.20-5.40 [place] [address]-10-17 10:14:00 Test Item Value Reference Range Interpretation Comments Hgb (test code = Hgb) 11.0 12.0-16.0 [place] 139731-10-17 10:14:00 Test Item Value Reference Range Interpretation Comments Hct (test code = Hct) 33.3 36.0-48.0 [place] 139731-10-17 10:14:00 Test Item Value Reference Range Interpretation Comments MCV (test code = MCV) 86.1 80.0-98.0 [place] 139731-10-17 10:14:00 Test Item Value Reference Range Interpretation Comments MCH (test code = MCH) 28.4 pg 27.0-31.0 [place] 139731-10-17 10:14:00 Test Item Value Reference Range Interpretation Comments MCHC (test code = MCHC) 33.0 32.0-36.0 [place] 139731-10-17 10:14:00 Test Item Value Reference Range Interpretation Comments RDW (test code = RDW) 15.4 11.5-14.5 [place] 139731-10-17 10:14:00 Test Item Value Reference Range Interpretation Comments Platelet (test code = Platelet) 418 133-450 [facility] CentralPezefvqGUWGRGULWV4856-39-30 10:14:00 Test Item Value Reference Range Interpretation Comments MPV (test code = MPV) 8.1 7.4-10.4 [place] 139731-10-17 10:14:00 Test Item Value Reference Range Interpretation Comments PTT (test code = PTT) 31.9 s 22.9-35.8 [place] 139731-10-17 10:14:00 Test Item Value Reference Range Interpretation Comments Segs (test code = Segs) 78.7 45.0-75.0 [place] 139731-10-17 10:14:00 Test Item Value Reference Range Interpretation Comments Lymphocytes (test code = Lymphocytes) 13.1 20.0-40.0 [place] 139731-10-17 10:14:00 Test Item Value Reference Range Interpretation Comments Monocytes (test code = Monocytes) 6.8 2.0-12.0 [place] 139731-10-17 10:14:00 Test Item Value Reference Range Interpretation Comments Eosinophils (test code = 0.7 See_Comment [A utomated message] The Eosinophils) system which ge nerated this result tra nsmitted reference range : <=4.0. The reference r arelis was not used to int erpret this result as normal/abnormal . [facility] CentralBdufcjiKSYZCWIZHB0395-43-21 10:14:00 Test Item Value Reference Range Interpretation Comments Basophils (test code = 0.7 See_Comment [Aut omated message] The Basophils) system which ge nerated this result tra nsmitted reference range : <=1.0. The reference r arelis was not used to int erpret this result as normal/abnormal . [facility] CentralXmddbgeOCKFPHXLKD7184-69-54 10:14:00 Test Item Value Reference Range Interpretation Comments Neutrophils # (test code = Neutrophils 7.7 1.5-8.1 #) [facility] CentralZzodatjYLRFXJMPYS2511-15-10 10:14:00 Test Item Value Reference Range Interpretation Comments Lymphocytes # (test code = Lymphocytes 1.3 1.0-5.5 #) [facility] CentralXqlnpriHQIAZTWNSJ3838-82-49 10:14:00 Test Item Value Reference Range Interpretation Comments Monocytes # (test code 0.7 See_Comment [Aut omated message] The = Monocytes #) system which generated this result tra nsmitted reference range : <=0.8. The reference r arelis was not used to int erpret this result as normal/abnormal . [facility] CentralXlxbtcwLGNSDWDEZJ7595-51-56 10:14:00 Test Item Value Reference Range Interpretation Comments Eosinophils # (test code 0.1 See_Comment [A utomated message] The = Eosinophils #) system whic h generated this result tra nsmitted reference range : <=0.5. The reference r arelis was not used to int erpret this result as normal/abnormal . [facility] CentralWhfuenqIKUNPYUVAF4007-18-70 10:14:00 Test Item Value Reference Range Interpretation Comments Basophils # (test code 0.1 See_Comment [Aut omated message] The = Basophils #) system which generated this result tra nsmitted reference range : <=0.2. The reference r arelis was not used to int erpret this result as normal/abnormal . [facility] CentralNeoxrbpTYEHEQPTJQ5780-43-59 10:14:00 Test Item Value Reference Range Interpretation Comments PT (test code = PT) 16.8 s 12.0-14.7 [place] 139731-10-17 10:14:00 Test Item Value Reference Range Interpretation Comments INR (test code = INR) 1.39 1 0.85-1.17 [place] 853501-10-17 10:14:00 Test Item Value Reference Range Interpretation Comments Glucose Lvl (test code = Glucose Lvl) 107 70-99 [place] 853501-10-17 10:14:00 Test Item Value Reference Range Interpretation Comments BUN (test code = BUN) 13 7-22 [place] 853501-10-17 10:14:00 Test Item Value Reference Range Interpretation Comments Creatinine Lvl (test code = Creatinine 0.67 0.50-1.40 Lvl) [place] 853501-10-17 10:14:00 Test Item Value Reference Range Interpretation Comments Sodium Lvl (test code = Sodium Lvl) 143 135-145 [place] 853501-10-17 10:14:00 Test Item Value Reference Range Interpretation Comments Potassium Lvl (test code = Potassium 3.3 3.5-5.1 Lvl) [place] 853501-10-17 10:14:00 Test Item Value Reference Range Interpretation Comments Chloride Lvl (test code = Chloride Lvl) 111 95-109 [place] 853501-10-17 10:14:00 Test Item Value Reference Range Interpretation Comments CO2 (test code = CO2) 23 24-32 [place] 853501-10-17 10:14:00 Test Item Value Reference Range Interpretation Comments Calcium Lvl (test code = Calcium Lvl) 9.2 8.5-10.5 [place] 853501-10-17 10:14:00 Test Item Value Reference Range Interpretation Comments Total Protein (test code = Total 6.5 6.4-8.4 Protein) [place] 853501-10-17 10:14:00 Test Item Value Reference Range Interpretation Comments Albumin Lvl (test code = Albumin Lvl) 2.9 3.5-5.0 [place] 853501-10-17 10:14:00 Test Item Value Reference Range Interpretation Comments ALT (test code = ALT) 19 See_Comment [Auto mated message] The system which ge nerated this result transmit sarah reference range : <=65. The reference range was not used to interpr et this result as felicitas l/abnormal. [place] 853501-10-17 10:14:00 Test Item Value Reference Range Interpretation Comments AST (test code = AST) 13 See_Comment [Auto mated message] The system which ge nerated this result transmit sarah reference range : <=37. The reference range was not used to interpr et this result as felicitas l/abnormal. [facility]2021-10-17 10:14:00 Test Item Value Reference Range Interpretation Comments Alk Phos (test code = Alk Phos) 102 39-136 [facility]2021-10-17 10:14:00 Test Item Value Reference Range Interpretation Comments Bili Total (test code = Bili Total) 0.3 0.2-1.3 [facility]2021-10-17 10:14:00 Test Item Value Reference Range Interpretation Comments AGAP (test code = AGAP) 12.3 10.0-20.0 [place] 853501-10-17 10:14:00 Test Item Value Reference Range Interpretation Comments B/C Ratio (test code = B/C Ratio) 19 1 6-25 [place] 853501-10-17 10:14:00 Test Item Value Reference Range Interpretation Comments Globulin (test code = Globulin) 3.6 2.7-4.2 [facility]2021-10-17 10:14:00 Test Item Value Reference Range Interpretation Comments A/G Ratio (test code = A/G Ratio) 0.8 1 0.7-1.6 [place] 853501-10-17 10:14:00 Test Item Value Reference Range Interpretation Comments eGFR (test code = eGFR) 91 [facility] CentralSxfvnfhGJXOROUCRA3495-95-70 10:14:00 Test Item Value Reference Range Interpretation Comments WBC (test code = WBC) 9.8 3.7-10.4 [place] 139731-10-17 10:14:00 Test Item Value Reference Range Interpretation Comments RBC (test code = RBC) 3.87 4.20-5.40 [place] 139731-10-17 10:14:00 Test Item Value Reference Range Interpretation Comments Hgb (test code = Hgb) 11.0 12.0-16.0 [place] 139731-10-17 10:14:00 Test Item Value Reference Range Interpretation Comments Hct (test code = Hct) 33.3 36.0-48.0 [place] 139731-10-17 10:14:00 Test Item Value Reference Range Interpretation Comments MCV (test code = MCV) 86.1 80.0-98.0 [place] 139731-10-17 10:14:00 Test Item Value Reference Range Interpretation Comments MCH (test code = MCH) 28.4 pg 27.0-31.0 [place] 139731-10-17 10:14:00 Test Item Value Reference Range Interpretation Comments MCHC (test code = MCHC) 33.0 32.0-36.0 [place] 139731-10-17 10:14:00 Test Item Value Reference Range Interpretation Comments RDW (test code = RDW) 15.4 11.5-14.5 [place] 139731-10-17 10:14:00 Test Item Value Reference Range Interpretation Comments Platelet (test code = Platelet) 418 133-450 [facility] CentralFsvcbueXTXENPVULM0659-35-10 10:14:00 Test Item Value Reference Range Interpretation Comments MPV (test code = MPV) 8.1 7.4-10.4 [place] 139731-10-17 10:14:00 Test Item Value Reference Range Interpretation Comments PTT (test code = PTT) 31.9 s 22.9-35.8 [place] 139731-10-17 10:14:00 Test Item Value Reference Range Interpretation Comments Segs (test code = Segs) 78.7 45.0-75.0 [place] 139731-10-17 10:14:00 Test Item Value Reference Range Interpretation Comments Lymphocytes (test code = Lymphocytes) 13.1 20.0-40.0 [place] 139731-10-17 10:14:00 Test Item Value Reference Range Interpretation Comments Monocytes (test code = Monocytes) 6.8 2.0-12.0 [place] [address]-10-17 10:14:00 Test Item Value Reference Range Interpretation Comments Eosinophils (test code = 0.7 See_Comment [A utomated message] The Eosinophils) system which ge nerated this result tra nsmitted reference range : <=4.0. The reference r arelis was not used to int erpret this result as normal/abnormal . [facility] CentralTzztlcoYXSKFAQKZA0540-54-05 10:14:00 Test Item Value Reference Range Interpretation Comments Basophils (test code = 0.7 See_Comment [Aut omated message] The Basophils) system which ge nerated this result tra nsmitted reference range : <=1.0. The reference r arelis was not used to int erpret this result as normal/abnormal . [place] 139731-10-17 10:14:00 Test Item Value Reference Range Interpretation Comments Neutrophils # (test code = Neutrophils 7.7 1.5-8.1 #) [facility] CentralKnbbmzfRWNDNLLVYQ4659-30-13 10:14:00 Test Item Value Reference Range Interpretation Comments Lymphocytes # (test code = Lymphocytes 1.3 1.0-5.5 #) [facility] CentralLogocwgETUNQOSZTU7537-92-71 10:14:00 Test Item Value Reference Range Interpretation Comments Monocytes # (test code 0.7 See_Comment [Aut omated message] The = Monocytes #) system which generated this result tra nsmitted reference range : <=0.8. The reference r arelis was not used to int erpret this result as normal/abnormal . [facility] CentralFcrapwxQKCTWFUBLT3357-53-39 10:14:00 Test Item Value Reference Range Interpretation Comments Eosinophils # (test code 0.1 See_Comment [A utomated message] The = Eosinophils #) system whic h generated this result tra nsmitted reference range : <=0.5. The reference r arelis was not used to int erpret this result as normal/abnormal . [facility] CentralSrznhmzJMHTCIAQJY6140-36-43 10:14:00 Test Item Value Reference Range Interpretation Comments Basophils # (test code 0.1 See_Comment [Aut omated message] The = Basophils #) system which generated this result tra nsmitted reference range : <=0.2. The reference r arelis was not used to int erpret this result as normal/abnormal . [facility] CentralGqyjlrvBXXTZAKEJK6887-19-42 10:14:00 Test Item Value Reference Range Interpretation Comments PT (test code = PT) 16.8 s 12.0-14.7 [place] 139731-10-17 10:14:00 Test Item Value Reference Range Interpretation Comments INR (test code = INR) 1.39 1 0.85-1.17 [facility]2021-10-17 10:14:00 Test Item Value Reference Range Interpretation Comments Glucose Lvl (test code = Glucose Lvl) 107 70-99 [place] 853501-10-17 10:14:00 Test Item Value Reference Range Interpretation Comments BUN (test code = BUN) 13 7-22 [place] 853501-10-17 10:14:00 Test Item Value Reference Range Interpretation Comments Creatinine Lvl (test code = Creatinine 0.67 0.50-1.40 Lvl) [place] 853501-10-17 10:14:00 Test Item Value Reference Range Interpretation Comments Sodium Lvl (test code = Sodium Lvl) 143 135-145 [place] 853501-10-17 10:14:00 Test Item Value Reference Range Interpretation Comments Potassium Lvl (test code = Potassium 3.3 3.5-5.1 Lvl) [place] 853501-10-17 10:14:00 Test Item Value Reference Range Interpretation Comments Chloride Lvl (test code = Chloride Lvl) 111 95-109 [place] 853501-10-17 10:14:00 Test Item Value Reference Range Interpretation Comments CO2 (test code = CO2) 23 24-32 [place] 853501-10-17 10:14:00 Test Item Value Reference Range Interpretation Comments Calcium Lvl (test code = Calcium Lvl) 9.2 8.5-10.5 [place] 853501-10-17 10:14:00 Test Item Value Reference Range Interpretation Comments Total Protein (test code = Total 6.5 6.4-8.4 Protein) [place] 853501-10-17 10:14:00 Test Item Value Reference Range Interpretation Comments Albumin Lvl (test code = Albumin Lvl) 2.9 3.5-5.0 [place] 853501-10-17 10:14:00 Test Item Value Reference Range Interpretation Comments ALT (test code = ALT) 19 See_Comment [Auto mated message] The system which ge nerated this result transmit sarah reference range : <=65. The reference range was not used to interpr et this result as felicitas l/abnormal. [place] 853501-10-17 10:14:00 Test Item Value Reference Range Interpretation Comments AST (test code = AST) 13 See_Comment [Auto mated message] The system which ge nerated this result transmit sarah reference range : <=37. The reference range was not used to interpr et this result as felicitas l/abnormal. [place] 853501-10-17 10:14:00 Test Item Value Reference Range Interpretation Comments Alk Phos (test code = Alk Phos) 102 39-136 [place] 853501-10-17 10:14:00 Test Item Value Reference Range Interpretation Comments Bili Total (test code = Bili Total) 0.3 0.2-1.3 [place] 853501-10-17 10:14:00 Test Item Value Reference Range Interpretation Comments AGAP (test code = AGAP) 12.3 10.0-20.0 [place] 853501-10-17 10:14:00 Test Item Value Reference Range Interpretation Comments B/C Ratio (test code = B/C Ratio) 19 1 6-25 [place] [address]-10-17 10:14:00 Test Item Value Reference Range Interpretation Comments Globulin (test code = Globulin) 3.6 2.7-4.2 [place] 853501-10-17 10:14:00 Test Item Value Reference Range Interpretation Comments A/G Ratio (test code = A/G Ratio) 0.8 1 0.7-1.6 [place] [address]-10-17 10:14:00 Test Item Value Reference Range Interpretation Comments eGFR (test code = eGFR) 91 [place] 139731-10-17 10:14:00 Test Item Value Reference Range Interpretation Comments WBC (test code = WBC) 9.8 3.7-10.4 [place] 139731-10-17 10:14:00 Test Item Value Reference Range Interpretation Comments RBC (test code = RBC) 3.87 4.20-5.40 [place] [address]-10-17 10:14:00 Test Item Value Reference Range Interpretation Comments Hgb (test code = Hgb) 11.0 12.0-16.0 [place] [address]-10-17 10:14:00 Test Item Value Reference Range Interpretation Comments Hct (test code = Hct) 33.3 36.0-48.0 [place] 139731-10-17 10:14:00 Test Item Value Reference Range Interpretation Comments MCV (test code = MCV) 86.1 80.0-98.0 [place] 139731-10-17 10:14:00 Test Item Value Reference Range Interpretation Comments MCH (test code = MCH) 28.4 pg 27.0-31.0 [facility] Ce[id number] 10:14:00 Test Item Value Reference Range Interpretation Comments MCHC (test code = MCHC) 33.0 32.0-36.0 [facility] CentralTqasaruRLFAWQUMWH0830-52-94 10:14:00 Test Item Value Reference Range Interpretation Comments RDW (test code = RDW) 15.4 11.5-14.5 [place] 139731-10-17 10:14:00 Test Item Value Reference Range Interpretation Comments Platelet (test code = Platelet) 418 133-450 [facility] CentralYbunnzhFRRMEGAYUB2327-81-04 10:14:00 Test Item Value Reference Range Interpretation Comments MPV (test code = MPV) 8.1 7.4-10.4 [facility] CentralRbxvfcwCSTKNWTCAH0673-26-57 10:14:00 Test Item Value Reference Range Interpretation Comments PTT (test code = PTT) 31.9 s 22.9-35.8 [facility] CentralBnhquuwBFSZDZMCEU7250-07-64 10:14:00 Test Item Value Reference Range Interpretation Comments Segs (test code = Segs) 78.7 45.0-75.0 [facility] CentralKejcsvePAUMCHSNGT9382-50-51 10:14:00 Test Item Value Reference Range Interpretation Comments Lymphocytes (test code = Lymphocytes) 13.1 20.0-40.0 [place] 139731-10-17 10:14:00 Test Item Value Reference Range Interpretation Comments Monocytes (test code = Monocytes) 6.8 2.0-12.0 [place] 139731-10-17 10:14:00 Test Item Value Reference Range Interpretation Comments Eosinophils (test code = 0.7 See_Comment [A utomated message] The Eosinophils) system which ge nerated this result tra nsmitted reference range : <=4.0. The reference r arelis was not used to int erpret this result as normal/abnormal . [place] 139731-10-17 10:14:00 Test Item Value Reference Range Interpretation Comments Basophils (test code = 0.7 See_Comment [Aut omated message] The Basophils) system which ge nerated this result tra nsmitted reference range : <=1.0. The reference r arelis was not used to int erpret this result as normal/abnormal . [place] 139731-10-17 10:14:00 Test Item Value Reference Range Interpretation Comments Neutrophils # (test code = Neutrophils 7.7 1.5-8.1 #) [place] 139731-10-17 10:14:00 Test Item Value Reference Range Interpretation Comments Lymphocytes # (test code = Lymphocytes 1.3 1.0-5.5 #) [place] 139731-10-17 10:14:00 Test Item Value Reference Range Interpretation Comments Monocytes # (test code 0.7 See_Comment [Aut omated message] The = Monocytes #) system which generated this result tra nsmitted reference range : <=0.8. The reference r arelis was not used to int erpret this result as normal/abnormal . [place] 139731-10-17 10:14:00 Test Item Value Reference Range Interpretation Comments Eosinophils # (test code 0.1 See_Comment [A utomated message] The = Eosinophils #) system whic h generated this result tra nsmitted reference range : <=0.5. The reference r arelis was not used to int erpret this result as normal/abnormal . [place] 139731-10-17 10:14:00 Test Item Value Reference Range Interpretation Comments Basophils # (test code 0.1 See_Comment [Aut omated message] The = Basophils #) system which generated this result tra nsmitted reference range : <=0.2. The reference r arelis was not used to int erpret this result as normal/abnormal . [place] 139731-10-17 10:14:00 Test Item Value Reference Range Interpretation Comments PT (test code = PT) 16.8 s 12.0-14.7 [place] 139731-10-17 10:14:00 Test Item Value Reference Range Interpretation Comments INR (test code = INR) 1.39 1 0.85-1.17 [place] 853501-10-17 10:14:00 Test Item Value Reference Range Interpretation Comments Glucose Lvl (test code = Glucose Lvl) 107 70-99 [place] 853501-10-17 10:14:00 Test Item Value Reference Range Interpretation Comments BUN (test code = BUN) 13 7-22 [facility] [id number] 10:14:00 Test Item Value Reference Range Interpretation Comments Creatinine Lvl (test code = Creatinine 0.67 0.50-1.40 Lvl) [place] 853501-10-17 10:14:00 Test Item Value Reference Range Interpretation Comments Sodium Lvl (test code = Sodium Lvl) 143 135-145 [facility] [id number] 10:14:00 Test Item Value Reference Range Interpretation Comments Potassium Lvl (test code = Potassium 3.3 3.5-5.1 Lvl) [facility] [id number] 10:14:00 Test Item Value Reference Range Interpretation Comments Chloride Lvl (test code = Chloride Lvl) 111 95-109 [facility] [id number] 10:14:00 Test Item Value Reference Range Interpretation Comments CO2 (test code = CO2) 23 24-32 [facility] [id number] 10:14:00 Test Item Value Reference Range Interpretation Comments Calcium Lvl (test code = Calcium Lvl) 9.2 8.5-10.5 [facility] [id number] 10:14:00 Test Item Value Reference Range Interpretation Comments Total Protein (test code = Total 6.5 6.4-8.4 Protein) [facility] [id number] 10:14:00 Test Item Value Reference Range Interpretation Comments Albumin Lvl (test code = Albumin Lvl) 2.9 3.5-5.0 [facility] [id number] 10:14:00 Test Item Value Reference Range Interpretation Comments ALT (test code = ALT) 19 See_Comment [Auto mated message] The system which ge nerated this result transmit sarah reference range : <=65. The reference range was not used to interpr et this result as felicitas l/abnormal. [facility] [id number] 10:14:00 Test Item Value Reference Range Interpretation Comments AST (test code = AST) 13 See_Comment [Auto mated message] The system which ge nerated this result transmit sarah reference range : <=37. The reference range was not used to interpr et this result as felicitas l/abnormal. [facility]2021-10-17 10:14:00 Test Item Value Reference Range Interpretation Comments Alk Phos (test code = Alk Phos) 102 39-136 [place] 853501-10-17 10:14:00 Test Item Value Reference Range Interpretation Comments Bili Total (test code = Bili Total) 0.3 0.2-1.3 [place] 853501-10-17 10:14:00 Test Item Value Reference Range Interpretation Comments AGAP (test code = AGAP) 12.3 10.0-20.0 [place] 853501-10-17 10:14:00 Test Item Value Reference Range Interpretation Comments B/C Ratio (test code = B/C Ratio) 19 1 6-25 [place] 853501-10-17 10:14:00 Test Item Value Reference Range Interpretation Comments Globulin (test code = Globulin) 3.6 2.7-4.2 [place] 853501-10-17 10:14:00 Test Item Value Reference Range Interpretation Comments A/G Ratio (test code = A/G Ratio) 0.8 1 0.7-1.6 [place] 853501-10-17 10:14:00 Test Item Value Reference Range Interpretation Comments eGFR (test code = eGFR) 91 [facility] CentralLfdurptVAPDEIGYRE5295-27-32 10:14:00 Test Item Value Reference Range Interpretation Comments WBC (test code = WBC) 9.8 3.7-10.4 [place] 139731-10-17 10:14:00 Test Item Value Reference Range Interpretation Comments RBC (test code = RBC) 3.87 4.20-5.40 [place] 139731-10-17 10:14:00 Test Item Value Reference Range Interpretation Comments Hgb (test code = Hgb) 11.0 12.0-16.0 [place] [address]-10-17 10:14:00 Test Item Value Reference Range Interpretation Comments Hct (test code = Hct) 33.3 36.0-48.0 [place] [address]-10-17 10:14:00 Test Item Value Reference Range Interpretation Comments MCV (test code = MCV) 86.1 80.0-98.0 [place] [address]-10-17 10:14:00 Test Item Value Reference Range Interpretation Comments MCH (test code = MCH) 28.4 pg 27.0-31.0 [place] 139731-10-17 10:14:00 Test Item Value Reference Range Interpretation Comments MCHC (test code = MCHC) 33.0 32.0-36.0 [place] 139731-10-17 10:14:00 Test Item Value Reference Range Interpretation Comments RDW (test code = RDW) 15.4 11.5-14.5 [place] 139731-10-17 10:14:00 Test Item Value Reference Range Interpretation Comments Platelet (test code = Platelet) 418 133-450 [place] 139731-10-17 10:14:00 Test Item Value Reference Range Interpretation Comments MPV (test code = MPV) 8.1 7.4-10.4 [place] 139731-10-17 10:14:00 Test Item Value Reference Range Interpretation Comments PTT (test code = PTT) 31.9 s 22.9-35.8 [place] [address]-10-17 10:14:00 Test Item Value Reference Range Interpretation Comments Segs (test code = Segs) 78.7 45.0-75.0 [place] [address]-10-17 10:14:00 Test Item Value Reference Range Interpretation Comments Lymphocytes (test code = Lymphocytes) 13.1 20.0-40.0 [place] [address]-10-17 10:14:00 Test Item Value Reference Range Interpretation Comments Monocytes (test code = Monocytes) 6.8 2.0-12.0 [place] [address]-10-17 10:14:00 Test Item Value Reference Range Interpretation Comments Eosinophils (test code = 0.7 See_Comment [A utomated message] The Eosinophils) system which ge nerated this result tra nsmitted reference range : <=4.0. The reference r arelis was not used to int erpret this result as normal/abnormal . [place] 139731-10-17 10:14:00 Test Item Value Reference Range Interpretation Comments Basophils (test code = 0.7 See_Comment [Aut omated message] The Basophils) system which ge nerated this result tra nsmitted reference range : <=1.0. The reference r arelis was not used to int erpret this result as normal/abnormal . [place] 139731-10-17 10:14:00 Test Item Value Reference Range Interpretation Comments Neutrophils # (test code = Neutrophils 7.7 1.5-8.1 #) [place] 139731-10-17 10:14:00 Test Item Value Reference Range Interpretation Comments Lymphocytes # (test code = Lymphocytes 1.3 1.0-5.5 #) [place] 139731-10-17 10:14:00 Test Item Value Reference Range Interpretation Comments Monocytes # (test code 0.7 See_Comment [Aut omated message] The = Monocytes #) system which generated this result tra nsmitted reference range : <=0.8. The reference r arelis was not used to int erpret this result as normal/abnormal . [place] 139731-10-17 10:14:00 Test Item Value Reference Range Interpretation Comments Eosinophils # (test code 0.1 See_Comment [A utomated message] The = Eosinophils #) system whic h generated this result tra nsmitted reference range : <=0.5. The reference r arelis was not used to int erpret this result as normal/abnormal . [place] 139731-10-17 10:14:00 Test Item Value Reference Range Interpretation Comments Basophils # (test code 0.1 See_Comment [Aut omated message] The = Basophils #) system which generated this result tra nsmitted reference range : <=0.2. The reference r arelis was not used to int erpret this result as normal/abnormal . [facility] [id number] 10:14:00 Test Item Value Reference Range Interpretation Comments PT (test code = PT) 16.8 s 12.0-14.7 [place] 139731-10-17 10:14:00 Test Item Value Reference Range Interpretation Comments INR (test code = INR) 1.39 1 0.85-1.17 [place] 853501-10-17 10:14:00 Test Item Value Reference Range Interpretation Comments Glucose Lvl (test code = Glucose Lvl) 107 70-99 [place] 853501-10-17 10:14:00 Test Item Value Reference Range Interpretation Comments BUN (test code = BUN) 13 7-22 [place] 853501-10-17 10:14:00 Test Item Value Reference Range Interpretation Comments Creatinine Lvl (test code = Creatinine 0.67 0.50-1.40 Lvl) [place] 853501-10-17 10:14:00 Test Item Value Reference Range Interpretation Comments Sodium Lvl (test code = Sodium Lvl) 143 135-145 [place] 853501-10-17 10:14:00 Test Item Value Reference Range Interpretation Comments Potassium Lvl (test code = Potassium 3.3 3.5-5.1 Lvl) [place] 853501-10-17 10:14:00 Test Item Value Reference Range Interpretation Comments Chloride Lvl (test code = Chloride Lvl) 111 95-109 [place] 853501-10-17 10:14:00 Test Item Value Reference Range Interpretation Comments CO2 (test code = CO2) 23 24-32 [place] 853501-10-17 10:14:00 Test Item Value Reference Range Interpretation Comments Calcium Lvl (test code = Calcium Lvl) 9.2 8.5-10.5 [place] 853501-10-17 10:14:00 Test Item Value Reference Range Interpretation Comments Total Protein (test code = Total 6.5 6.4-8.4 Protein) [place] 853501-10-17 10:14:00 Test Item Value Reference Range Interpretation Comments Albumin Lvl (test code = Albumin Lvl) 2.9 3.5-5.0 [place] 853501-10-17 10:14:00 Test Item Value Reference Range Interpretation Comments ALT (test code = ALT) 19 See_Comment [Auto mated message] The system which [employer] nerated this result transmit sarah reference range : <=65. The reference range was not used to interpr et this result as felicitas l/abnormal. [id number] 10:14:00 Test Item Value Reference Range Interpretation Comments AST (test code = AST) 13 See_Comment [Auto mated message] The system which ge nerated this result transmit sarah reference range : <=37. The reference range was not used to interpr et this result as felicitas l/abnormal. [facility] [id number] 10:14:00 Test Item Value Reference Range Interpretation Comments Alk Phos (test code = Alk Phos) 102 39-136 [place] [address]3501-10-17 10:14:00 Test Item Value Reference Range Interpretation Comments Bili Total (test code = Bili Total) 0.3 0.2-1.3 [place] [address]3501-10-17 10:14:00 Test Item Value Reference Range Interpretation Comments AGAP (test code = AGAP) 12.3 10.0-20.0 [place] 853501-10-17 10:14:00 Test Item Value Reference Range Interpretation Comments B/C Ratio (test code = B/C Ratio) 19 1 6-25 [place] 853501-10-17 10:14:00 Test Item Value Reference Range Interpretation Comments Globulin (test code = Globulin) 3.6 2.7-4.2 [place] 853501-10-17 10:14:00 Test Item Value Reference Range Interpretation Comments A/G Ratio (test code = A/G Ratio) 0.8 1 0.7-1.6 [place] 853501-10-17 10:14:00 Test Item Value Reference Range Interpretation Comments eGFR (test code = eGFR) 91 [place] 139731-10-17 10:14:00 Test Item Value Reference Range Interpretation Comments WBC (test code = WBC) 9.8 3.7-10.4 [place] 139731-10-17 10:14:00 Test Item Value Reference Range Interpretation Comments RBC (test code = RBC) 3.87 4.20-5.40 [place] 139731-10-17 10:14:00 Test Item Value Reference Range Interpretation Comments Hgb (test code = Hgb) 11.0 12.0-16.0 [place] [address]-10-17 10:14:00 Test Item Value Reference Range Interpretation Comments Hct (test code = Hct) 33.3 36.0-48.0 [place] [address]-10-17 10:14:00 Test Item Value Reference Range Interpretation Comments MCV (test code = MCV) 86.1 80.0-98.0 [place] [address]-10-17 10:14:00 Test Item Value Reference Range Interpretation Comments MCH (test code = MCH) 28.4 pg 27.0-31.0 [place] 139731-10-17 10:14:00 Test Item Value Reference Range Interpretation Comments MCHC (test code = MCHC) 33.0 32.0-36.0 [place] 139731-10-17 10:14:00 Test Item Value Reference Range Interpretation Comments RDW (test code = RDW) 15.4 11.5-14.5 [place] 139731-10-17 10:14:00 Test Item Value Reference Range Interpretation Comments Platelet (test code = Platelet) 418 133-450 [place] 139731-10-17 10:14:00 Test Item Value Reference Range Interpretation Comments MPV (test code = MPV) 8.1 7.4-10.4 [place] 139731-10-17 10:14:00 Test Item Value Reference Range Interpretation Comments PTT (test code = PTT) 31.9 s 22.9-35.8 [place] 139731-10-17 10:14:00 Test Item Value Reference Range Interpretation Comments Segs (test code = Segs) 78.7 45.0-75.0 [place] [address]-10-17 10:14:00 Test Item Value Reference Range Interpretation Comments Lymphocytes (test code = Lymphocytes) 13.1 20.0-40.0 [place] 139731-10-17 10:14:00 Test Item Value Reference Range Interpretation Comments Monocytes (test code = Monocytes) 6.8 2.0-12.0 [place] 139731-10-17 10:14:00 Test Item Value Reference Range Interpretation Comments Eosinophils (test code = 0.7 See_Comment [A utomated message] The Eosinophils) system which ge nerated this result tra nsmitted reference range : <=4.0. The reference r arelis was not used to int erpret this result as normal/abnormal . [place] 139731-10-17 10:14:00 Test Item Value Reference Range Interpretation Comments Basophils (test code = 0.7 See_Comment [Aut omated message] The Basophils) system which ge nerated this result tra nsmitted reference range : <=1.0. The reference r arelis was not used to int erpret this result as normal/abnormal . [place] 139731-10-17 10:14:00 Test Item Value Reference Range Interpretation Comments Neutrophils # (test code = Neutrophils 7.7 1.5-8.1 #) [place] 139731-10-17 10:14:00 Test Item Value Reference Range Interpretation Comments Lymphocytes # (test code = Lymphocytes 1.3 1.0-5.5 #) [place] 139731-10-17 10:14:00 Test Item Value Reference Range Interpretation Comments Monocytes # (test code 0.7 See_Comment [Aut omated message] The = Monocytes #) system which generated this result tra nsmitted reference range : <=0.8. The reference r arelis was not used to int erpret this result as normal/abnormal . [place] 139731-10-17 10:14:00 Test Item Value Reference Range Interpretation Comments Eosinophils # (test code 0.1 See_Comment [A utomated message] The = Eosinophils #) system whic h generated this result tra nsmitted reference range : <=0.5. The reference r arelis was not used to int erpret this result as normal/abnormal . [facility] [id number] 10:14:00 Test Item Value Reference Range Interpretation Comments Basophils # (test code 0.1 See_Comment [Aut omated message] The = Basophils #) system which generated this result tra nsmitted reference range : <=0.2. The reference r arelis was not used to int erpret this result as normal/abnormal . [place] 139731-10-17 10:14:00 Test Item Value Reference Range Interpretation Comments PT (test code = PT) 16.8 s 12.0-14.7 [place] 139731-10-17 10:14:00 Test Item Value Reference Range Interpretation Comments INR (test code = INR) 1.39 1 0.85-1.17 [place] 853501-10-17 10:14:00 Test Item Value Reference Range Interpretation Comments Glucose Lvl (test code = Glucose Lvl) 107 70-99 [place] 853501-10-17 10:14:00 Test Item Value Reference Range Interpretation Comments BUN (test code = BUN) 13 7-22 [place] 853501-10-17 10:14:00 Test Item Value Reference Range Interpretation Comments Creatinine Lvl (test code = Creatinine 0.67 0.50-1.40 Lvl) [place] 853501-10-17 10:14:00 Test Item Value Reference Range Interpretation Comments Sodium Lvl (test code = Sodium Lvl) 143 135-145 [place] 853501-10-17 10:14:00 Test Item Value Reference Range Interpretation Comments Potassium Lvl (test code = Potassium 3.3 3.5-5.1 Lvl) [place] 853501-10-17 10:14:00 Test Item Value Reference Range Interpretation Comments Chloride Lvl (test code = Chloride Lvl) 111 95-109 [facility] [id number] 10:14:00 Test Item Value Reference Range Interpretation Comments CO2 (test code = CO2) 23 24-32 [facility] [id number] 10:14:00 Test Item Value Reference Range Interpretation Comments Calcium Lvl (test code = Calcium Lvl) 9.2 8.5-10.5 [facility] [id number] 10:14:00 Test Item Value Reference Range Interpretation Comments Total Protein (test code = Total 6.5 6.4-8.4 Protein) [facility] [id number] 10:14:00 Test Item Value Reference Range Interpretation Comments Albumin Lvl (test code = Albumin Lvl) 2.9 3.5-5.0 [facility] [id number] 10:14:00 Test Item Value Reference Range Interpretation Comments ALT (test code = ALT) 19 See_Comment [Auto mated message] The system which [employer] nerated this result transmit sarah reference range : <=65. The reference range was not used to interpr et this result as felicitas l/abnormal. [facility] [id number] 10:14:00 Test Item Value Reference Range Interpretation Comments AST (test code = AST) 13 See_Comment [Auto mated message] The system which [employer] nerated this result transmit sarah reference range : <=37. The reference range was not used to interpr et this result as felicitas l/abnormal. [facility] [id number] 10:14:00 Test Item Value Reference Range Interpretation Comments Alk Phos (test code = Alk Phos) 102 39-136 [facility] [id number] 10:14:00 Test Item Value Reference Range Interpretation Comments Bili Total (test code = Bili Total) 0.3 0.2-1.3 [place] 853501-10-17 10:14:00 Test Item Value Reference Range Interpretation Comments AGAP (test code = AGAP) 12.3 10.0-20.0 [place] 853501-10-17 10:14:00 Test Item Value Reference Range Interpretation Comments B/C Ratio (test code = B/C Ratio) 19 1 6-25 [place] 853501-10-17 10:14:00 Test Item Value Reference Range Interpretation Comments Globulin (test code = Globulin) 3.6 2.7-4.2 [place] 853501-10-17 10:14:00 Test Item Value Reference Range Interpretation Comments A/G Ratio (test code = A/G Ratio) 0.8 1 0.7-1.6 [place] 853501-10-17 10:14:00 Test Item Value Reference Range Interpretation Comments eGFR (test code = eGFR) 91 [facility] [id number] 10:14:00 Test Item Value Reference Range Interpretation Comments WBC (test code = WBC) 9.8 3.7-10.4 [place] 139731-10-17 10:14:00 Test Item Value Reference Range Interpretation Comments RBC (test code = RBC) 3.87 4.20-5.40 [place] 139731-10-17 10:14:00 Test Item Value Reference Range Interpretation Comments Hgb (test code = Hgb) 11.0 12.0-16.0 [place] [address]-10-17 10:14:00 Test Item Value Reference Range Interpretation Comments Hct (test code = Hct) 33.3 36.0-48.0 [place] [address]-10-17 10:14:00 Test Item Value Reference Range Interpretation Comments MCV (test code = MCV) 86.1 80.0-98.0 [place] 139731-10-17 10:14:00 Test Item Value Reference Range Interpretation Comments MCH (test code = MCH) 28.4 pg 27.0-31.0 [place] 139731-10-17 10:14:00 Test Item Value Reference Range Interpretation Comments MCHC (test code = MCHC) 33.0 32.0-36.0 [id number] 10:14:00 Test Item Value Reference Range Interpretation Comments RDW (test code = RDW) 15.4 11.5-14.5 [place] 139731-10-17 10:14:00 Test Item Value Reference Range Interpretation Comments Platelet (test code = Platelet) 418 133-450 [facility] Ce[id number] 10:14:00 Test Item Value Reference Range Interpretation Comments MPV (test code = MPV) 8.1 7.4-10.4 [place] 139731-10-17 10:14:00 Test Item Value Reference Range Interpretation Comments PTT (test code = PTT) 31.9 s 22.9-35.8 [place] 139731-10-17 10:14:00 Test Item Value Reference Range Interpretation Comments Segs (test code = Segs) 78.7 45.0-75.0 [place] 139731-10-17 10:14:00 Test Item Value Reference Range Interpretation Comments Lymphocytes (test code = Lymphocytes) 13.1 20.0-40.0 [place] 139731-10-17 10:14:00 Test Item Value Reference Range Interpretation Comments Monocytes (test code = Monocytes) 6.8 2.0-12.0 [facility] [id number] 10:14:00 Test Item Value Reference Range Interpretation Comments Eosinophils (test code = 0.7 See_Comment [A utomated message] The Eosinophils) system which ge nerated this result tra nsmitted reference range : <=4.0. The reference r arelis was not used to int erpret this result as normal/abnormal . [place] 139731-10-17 10:14:00 Test Item Value Reference Range Interpretation Comments Basophils (test code = 0.7 See_Comment [Aut omated message] The Basophils) system which ge nerated this result tra nsmitted reference range : <=1.0. The reference r arelis was not used to int erpret this result as normal/abnormal . [place] 139731-10-17 10:14:00 Test Item Value Reference Range Interpretation Comments Neutrophils # (test code = Neutrophils 7.7 1.5-8.1 #) [place] 139731-10-17 10:14:00 Test Item Value Reference Range Interpretation Comments Lymphocytes # (test code = Lymphocytes 1.3 1.0-5.5 #) [place] 139731-10-17 10:14:00 Test Item Value Reference Range Interpretation Comments Monocytes # (test code 0.7 See_Comment [Aut omated message] The = Monocytes #) system which generated this result tra nsmitted reference range : <=0.8. The reference r arelis was not used to int erpret this result as normal/abnormal . [place] 139731-10-17 10:14:00 Test Item Value Reference Range Interpretation Comments Eosinophils # (test code 0.1 See_Comment [A utomated message] The = Eosinophils #) system whic h generated this result tra nsmitted reference range : <=0.5. The reference r arelis was not used to int erpret this result as normal/abnormal . [place] 139731-10-17 10:14:00 Test Item Value Reference Range Interpretation Comments Basophils # (test code 0.1 See_Comment [Aut omated message] The = Basophils #) system which generated this result tra nsmitted reference range : <=0.2. The reference r arelis was not used to int erpret this result as normal/abnormal . [place] 139731-10-17 10:14:00 Test Item Value Reference Range Interpretation Comments PT (test code = PT) 16.8 s 12.0-14.7 [place] 139731-10-17 10:14:00 Test Item Value Reference Range Interpretation Comments INR (test code = INR) 1.39 1 0.85-1.17 [place] 853501-10-17 10:14:00 Test Item Value Reference Range Interpretation Comments Glucose Lvl (test code = Glucose Lvl) 107 70-99 [place] 853501-10-17 10:14:00 Test Item Value Reference Range Interpretation Comments BUN (test code = BUN) 13 7-22 [place] 853501-10-17 10:14:00 Test Item Value Reference Range Interpretation Comments Creatinine Lvl (test code = Creatinine 0.67 0.50-1.40 Lvl) [place] 853501-10-17 10:14:00 Test Item Value Reference Range Interpretation Comments Sodium Lvl (test code = Sodium Lvl) 143 135-145 [facility] [id number] 10:14:00 Test Item Value Reference Range Interpretation Comments Potassium Lvl (test code = Potassium 3.3 3.5-5.1 Lvl) [place] 853501-10-17 10:14:00 Test Item Value Reference Range Interpretation Comments Chloride Lvl (test code = Chloride Lvl) 111 95-109 [facility] [id number] 10:14:00 Test Item Value Reference Range Interpretation Comments CO2 (test code = CO2) 23 24-32 [facility] [id number] 10:14:00 Test Item Value Reference Range Interpretation Comments Calcium Lvl (test code = Calcium Lvl) 9.2 8.5-10.5 [facility] [id number] 10:14:00 Test Item Value Reference Range Interpretation Comments Total Protein (test code = Total 6.5 6.4-8.4 Protein) [place] 853501-10-17 10:14:00 Test Item Value Reference Range Interpretation Comments Albumin Lvl (test code = Albumin Lvl) 2.9 3.5-5.0 [facility] [id number] 10:14:00 Test Item Value Reference Range Interpretation Comments ALT (test code = ALT) 19 See_Comment [Auto mated message] The system which ge nerated this result transmit sarah reference range : <=65. The reference range was not used to interpr et this result as felicitas l/abnormal. [facility] [id number] 10:14:00 Test Item Value Reference Range Interpretation Comments AST (test code = AST) 13 See_Comment [Auto mated message] The system which ge nerated this result transmit sarah reference range : <=37. The reference range was not used to interpr et this result as felicitas l/abnormal. [facility] [id number] 10:14:00 Test Item Value Reference Range Interpretation Comments Alk Phos (test code = Alk Phos) 102 39-136 [facility] [id number] 10:14:00 Test Item Value Reference Range Interpretation Comments Bili Total (test code = Bili Total) 0.3 0.2-1.3 [place] 853501-10-17 10:14:00 Test Item Value Reference Range Interpretation Comments AGAP (test code = AGAP) 12.3 10.0-20.0 [place] 853501-10-17 10:14:00 Test Item Value Reference Range Interpretation Comments B/C Ratio (test code = B/C Ratio) 19 1 6-25 [place] [address]-10-17 10:14:00 Test Item Value Reference Range Interpretation Comments Globulin (test code = Globulin) 3.6 2.7-4.2 [place] 853501-10-17 10:14:00 Test Item Value Reference Range Interpretation Comments A/G Ratio (test code = A/G Ratio) 0.8 1 0.7-1.6 [place] 853501-10-17 10:14:00 Test Item Value Reference Range Interpretation Comments eGFR (test code = eGFR) 91 [place] 139731-10-17 10:14:00 Test Item Value Reference Range Interpretation Comments WBC (test code = WBC) 9.8 3.7-10.4 [place] 139731-10-17 10:14:00 Test Item Value Reference Range Interpretation Comments RBC (test code = RBC) 3.87 4.20-5.40 [place] 139731-10-17 10:14:00 Test Item Value Reference Range Interpretation Comments Hgb (test code = Hgb) 11.0 12.0-16.0 [place] 139731-10-17 10:14:00 Test Item Value Reference Range Interpretation Comments Hct (test code = Hct) 33.3 36.0-48.0 [place] [address]-10-17 10:14:00 Test Item Value Reference Range Interpretation Comments MCV (test code = MCV) 86.1 80.0-98.0 [place] [address]-10-17 10:14:00 Test Item Value Reference Range Interpretation Comments MCH (test code = MCH) 28.4 pg 27.0-31.0 [place] [address]-10-17 10:14:00 Test Item Value Reference Range Interpretation Comments MCHC (test code = MCHC) 33.0 32.0-36.0 [place] [address]-10-17 10:14:00 Test Item Value Reference Range Interpretation Comments RDW (test code = RDW) 15.4 11.5-14.5 [place] 139731-10-17 10:14:00 Test Item Value Reference Range Interpretation Comments Platelet (test code = Platelet) 418 133-450 [place] 139731-10-17 10:14:00 Test Item Value Reference Range Interpretation Comments MPV (test code = MPV) 8.1 7.4-10.4 [place] 139731-10-17 10:14:00 Test Item Value Reference Range Interpretation Comments PTT (test code = PTT) 31.9 s 22.9-35.8 [place] 139731-10-17 10:14:00 Test Item Value Reference Range Interpretation Comments Segs (test code = Segs) 78.7 45.0-75.0 [place] 139731-10-17 10:14:00 Test Item Value Reference Range Interpretation Comments Lymphocytes (test code = Lymphocytes) 13.1 20.0-40.0 [place] 139731-10-17 10:14:00 Test Item Value Reference Range Interpretation Comments Monocytes (test code = Monocytes) 6.8 2.0-12.0 [place] 139731-10-17 10:14:00 Test Item Value Reference Range Interpretation Comments Eosinophils (test code = 0.7 See_Comment [A utomated message] The Eosinophils) system which ge nerated this result tra nsmitted reference range : <=4.0. The reference r arelis was not used to int erpret this result as normal/abnormal . [place] 139731-10-17 10:14:00 Test Item Value Reference Range Interpretation Comments Basophils (test code = 0.7 See_Comment [Aut omated message] The Basophils) system which ge nerated this result tra nsmitted reference range : <=1.0. The reference r aerlis was not used to int erpret this result as normal/abnormal . [place] 139731-10-17 10:14:00 Test Item Value Reference Range Interpretation Comments Neutrophils # (test code = Neutrophils 7.7 1.5-8.1 #) [place] 139731-10-17 10:14:00 Test Item Value Reference Range Interpretation Comments Lymphocytes # (test code = Lymphocytes 1.3 1.0-5.5 #) [place] 139731-10-17 10:14:00 Test Item Value Reference Range Interpretation Comments Monocytes # (test code 0.7 See_Comment [Aut omated message] The = Monocytes #) system which generated this result tra nsmitted reference range : <=0.8. The reference r arelis was not used to int erpret this result as normal/abnormal . [place] 139731-10-17 10:14:00 Test Item Value Reference Range Interpretation Comments Eosinophils # (test code 0.1 See_Comment [A utomated message] The = Eosinophils #) system whic h generated this result tra nsmitted reference range : <=0.5. The reference r arleis was not used to int erpret this result as normal/abnormal . [place] [address]-10-17 10:14:00 Test Item Value Reference Range Interpretation Comments Basophils # (test code 0.1 See_Comment [Aut omated message] The = Basophils #) system which generated this result tra nsmitted reference range : <=0.2. The reference r arelis was not used to int erpret this result as normal/abnormal . [place] 139731-10-17 10:14:00 Test Item Value Reference Range Interpretation Comments PT (test code = PT) 16.8 s 12.0-14.7 [place] [address]-10-17 10:14:00 Test Item Value Reference Range Interpretation Comments INR (test code = INR) 1.39 1 0.85-1.17 [place] 853501-10-17 10:14:00 Test Item Value Reference Range Interpretation Comments Glucose Lvl (test code = Glucose Lvl) 107 70-99 [place] 853501-10-17 10:14:00 Test Item Value Reference Range Interpretation Comments BUN (test code = BUN) 13 7-22 [place] 853501-10-17 10:14:00 Test Item Value Reference Range Interpretation Comments Creatinine Lvl (test code = Creatinine 0.67 0.50-1.40 Lvl) [place] 853501-10-17 10:14:00 Test Item Value Reference Range Interpretation Comments Sodium Lvl (test code = Sodium Lvl) 143 135-145 [facility] [id number] 10:14:00 Test Item Value Reference Range Interpretation Comments Potassium Lvl (test code = Potassium 3.3 3.5-5.1 Lvl) [place] 853501-10-17 10:14:00 Test Item Value Reference Range Interpretation Comments Chloride Lvl (test code = Chloride Lvl) 111 95-109 [facility] [id number] 10:14:00 Test Item Value Reference Range Interpretation Comments CO2 (test code = CO2) 23 24-32 [facility] [id number] 10:14:00 Test Item Value Reference Range Interpretation Comments Calcium Lvl (test code = Calcium Lvl) 9.2 8.5-10.5 [facility] [id number] 10:14:00 Test Item Value Reference Range Interpretation Comments Total Protein (test code = Total 6.5 6.4-8.4 Protein) [place] 853501-10-17 10:14:00 Test Item Value Reference Range Interpretation Comments Albumin Lvl (test code = Albumin Lvl) 2.9 3.5-5.0 [facility] [id number] 10:14:00 Test Item Value Reference Range Interpretation Comments ALT (test code = ALT) 19 See_Comment [Auto mated message] The system which ge nerated this result transmit sarah reference range : <=65. The reference range was not used to interpr et this result as felicitas l/abnormal. [facility] [id number] 10:14:00 Test Item Value Reference Range Interpretation Comments AST (test code = AST) 13 See_Comment [Auto mated message] The system which ge nerated this result transmit sarah reference range : <=37. The reference range was not used to interpr et this result as felicitas l/abnormal. [facility] [employer] [id number] 10:14:00 Test Item Value Reference Range Interpretation Comments Alk Phos (test code = Alk Phos) 102 39-136 [facility] [id number] 10:14:00 Test Item Value Reference Range Interpretation Comments Bili Total (test code = Bili Total) 0.3 0.2-1.3 [facility] [id number] 10:14:00 Test Item Value Reference Range Interpretation Comments AGAP (test code = AGAP) 12.3 10.0-20.0 [place] 853501-10-17 10:14:00 Test Item Value Reference Range Interpretation Comments B/C Ratio (test code = B/C Ratio) 19 1 6-25 [place] [address]-10-17 10:14:00 Test Item Value Reference Range Interpretation Comments Globulin (test code = Globulin) 3.6 2.7-4.2 [place] 853501-10-17 10:14:00 Test Item Value Reference Range Interpretation Comments A/G Ratio (test code = A/G Ratio) 0.8 1 0.7-1.6 [place] 853501-10-17 10:14:00 Test Item Value Reference Range Interpretation Comments eGFR (test code = eGFR) 91 [place] 139731-10-17 10:14:00 Test Item Value Reference Range Interpretation Comments WBC (test code = WBC) 9.8 3.7-10.4 [place] 139731-10-17 10:14:00 Test Item Value Reference Range Interpretation Comments RBC (test code = RBC) 3.87 4.20-5.40 [place] 139731-10-17 10:14:00 Test Item Value Reference Range Interpretation Comments Hgb (test code = Hgb) 11.0 12.0-16.0 [place] [address]-10-17 10:14:00 Test Item Value Reference Range Interpretation Comments Hct (test code = Hct) 33.3 36.0-48.0 [place] [address]-10-17 10:14:00 Test Item Value Reference Range Interpretation Comments MCV (test code = MCV) 86.1 80.0-98.0 [place] [address]-10-17 10:14:00 Test Item Value Reference Range Interpretation Comments MCH (test code = MCH) 28.4 pg 27.0-31.0 [place] [address]-10-17 10:14:00 Test Item Value Reference Range Interpretation Comments MCHC (test code = MCHC) 33.0 32.0-36.0 [place] [address]-10-17 10:14:00 Test Item Value Reference Range Interpretation Comments RDW (test code = RDW) 15.4 11.5-14.5 [place] 139731-10-17 10:14:00 Test Item Value Reference Range Interpretation Comments Platelet (test code = Platelet) 418 133-450 [facility] [id number] 10:14:00 Test Item Value Reference Range Interpretation Comments MPV (test code = MPV) 8.1 7.4-10.4 [place] 139731-10-17 10:14:00 Test Item Value Reference Range Interpretation Comments PTT (test code = PTT) 31.9 s 22.9-35.8 [place] 139731-10-17 10:14:00 Test Item Value Reference Range Interpretation Comments Segs (test code = Segs) 78.7 45.0-75.0 [place] 139731-10-17 10:14:00 Test Item Value Reference Range Interpretation Comments Lymphocytes (test code = Lymphocytes) 13.1 20.0-40.0 [place] 139731-10-17 10:14:00 Test Item Value Reference Range Interpretation Comments Monocytes (test code = Monocytes) 6.8 2.0-12.0 [place] 139731-10-17 10:14:00 Test Item Value Reference Range Interpretation Comments Eosinophils (test code = 0.7 See_Comment [A utomated message] The Eosinophils) system which ge nerated this result tra nsmitted reference range : <=4.0. The reference r arelis was not used to int erpret this result as normal/abnormal . [facility] [id number] 10:14:00 Test Item Value Reference Range Interpretation Comments Basophils (test code = 0.7 See_Comment [Aut omated message] The Basophils) system which ge nerated this result tra nsmitted reference range : <=1.0. The reference r arelis was not used to int erpret this result as normal/abnormal . [facility] CentralLidbtrxNFNFOYVSCN1820-10-07 10:14:00 Test Item Value Reference Range Interpretation Comments Neutrophils # (test code = Neutrophils 7.7 1.5-8.1 #) [facility] [id number] 10:14:00 Test Item Value Reference Range Interpretation Comments Lymphocytes # (test code = Lymphocytes 1.3 1.0-5.5 #) [place] [address]-10-17 10:14:00 Test Item Value Reference Range Interpretation Comments Monocytes # (test code 0.7 See_Comment [Aut omated message] The = Monocytes #) system which generated this result tra nsmitted reference range : <=0.8. The reference r arelis was not used to int erpret this result as normal/abnormal . [place] 139731-10-17 10:14:00 Test Item Value Reference Range Interpretation Comments Eosinophils # (test code 0.1 See_Comment [A utomated message] The = Eosinophils #) system whic h generated this result tra nsmitted reference range : <=0.5. The reference r arelis was not used to int erpret this result as normal/abnormal . [place] 139731-10-17 10:14:00 Test Item Value Reference Range Interpretation Comments Basophils # (test code 0.1 See_Comment [Aut omated message] The = Basophils #) system which generated this result tra nsmitted reference range : <=0.2. The reference r arelis was not used to int erpret this result as normal/abnormal . [place] 139731-10-17 10:14:00 Test Item Value Reference Range Interpretation Comments PT (test code = PT) 16.8 s 12.0-14.7 [place] [address]-10-17 10:14:00 Test Item Value Reference Range Interpretation Comments INR (test code = INR) 1.39 1 0.85-1.17 [place] 853501-10-17 10:14:00 Test Item Value Reference Range Interpretation Comments Glucose Lvl (test code = Glucose Lvl) 107 70-99 [place] 853501-10-17 10:14:00 Test Item Value Reference Range Interpretation Comments BUN (test code = BUN) 13 7-22 [place] 853501-10-17 10:14:00 Test Item Value Reference Range Interpretation Comments Creatinine Lvl (test code = Creatinine 0.67 0.50-1.40 Lvl) [place] 853501-10-17 10:14:00 Test Item Value Reference Range Interpretation Comments Sodium Lvl (test code = Sodium Lvl) 143 135-145 [place] 853501-10-17 10:14:00 Test Item Value Reference Range Interpretation Comments Potassium Lvl (test code = Potassium 3.3 3.5-5.1 Lvl) [facility]isB[facility] [id number] 10:14:00 Test Item Value Reference Range Interpretation Comments Chloride Lvl (test code = Chloride Lvl) 111 95-109 [place] 853501-10-17 10:14:00 Test Item Value Reference Range Interpretation Comments CO2 (test code = CO2) 23 24-32 [facility] [id number] 10:14:00 Test Item Value Reference Range Interpretation Comments Calcium Lvl (test code = Calcium Lvl) 9.2 8.5-10.5 [facility] [id number] 10:14:00 Test Item Value Reference Range Interpretation Comments Total Protein (test code = Total 6.5 6.4-8.4 Protein) [facility] HospitalWhoisCOMMUNITY [id number] 10:14:00 Test Item Value Reference Range Interpretation Comments Albumin Lvl (test code = Albumin Lvl) 2.9 3.5-5.0 [facility] [id number] 10:14:00 Test Item Value Reference Range Interpretation Comments ALT (test code = ALT) 19 See_Comment [Auto mated message] The system which ge nerated this result transmit sarah reference range : <=65. The reference range was not used to interpr et this result as felicitas l/abnormal. [facility] [id number] 10:14:00 Test Item Value Reference Range Interpretation Comments AST (test code = AST) 13 See_Comment [Auto mated message] The system which ge nerated this result transmit sarah reference range : <=37. The reference range was not used to interpr et this result as felicitas l/abnormal. [facility] [id number] 10:14:00 Test Item Value Reference Range Interpretation Comments Alk Phos (test code = Alk Phos) 102 39-136 [facility] [id number] 10:14:00 Test Item Value Reference Range Interpretation Comments Bili Total (test code = Bili Total) 0.3 0.2-1.3 [facility] [id number] 10:14:00 Test Item Value Reference Range Interpretation Comments AGAP (test code = AGAP) 12.3 10.0-20.0 [place] 853501-10-17 10:14:00 Test Item Value Reference Range Interpretation Comments B/C Ratio (test code = B/C Ratio) 19 1 6-25 [place] 853501-10-17 10:14:00 Test Item Value Reference Range Interpretation Comments Globulin (test code = Globulin) 3.6 2.7-4.2 [place] 853501-10-17 10:14:00 Test Item Value Reference Range Interpretation Comments A/G Ratio (test code = A/G Ratio) 0.8 1 0.7-1.6 [place] 853501-10-17 10:14:00 Test Item Value Reference Range Interpretation Comments eGFR (test code = eGFR) 91 [place] 139731-10-17 10:14:00 Test Item Value Reference Range Interpretation Comments WBC (test code = WBC) 9.8 3.7-10.4 [place] 139731-10-17 10:14:00 Test Item Value Reference Range Interpretation Comments RBC (test code = RBC) 3.87 4.20-5.40 [place] 139731-10-17 10:14:00 Test Item Value Reference Range Interpretation Comments Hgb (test code = Hgb) 11.0 12.0-16.0 [place] 139731-10-17 10:14:00 Test Item Value Reference Range Interpretation Comments Hct (test code = Hct) 33.3 36.0-48.0 [place] 139731-10-17 10:14:00 Test Item Value Reference Range Interpretation Comments MCV (test code = MCV) 86.1 80.0-98.0 [place] 139731-10-17 10:14:00 Test Item Value Reference Range Interpretation Comments MCH (test code = MCH) 28.4 pg 27.0-31.0 [place] 139731-10-17 10:14:00 Test Item Value Reference Range Interpretation Comments MCHC (test code = MCHC) 33.0 32.0-36.0 [place] 139731-10-17 10:14:00 Test Item Value Reference Range Interpretation Comments RDW (test code = RDW) 15.4 11.5-14.5 [place] 139731-10-17 10:14:00 Test Item Value Reference Range Interpretation Comments Platelet (test code = Platelet) 418 133-450 [facility] C[id number] 10:14:00 Test Item Value Reference Range Interpretation Comments MPV (test code = MPV) 8.1 7.4-10.4 [place] 139731-10-17 10:14:00 Test Item Value Reference Range Interpretation Comments PTT (test code = PTT) 31.9 s 22.9-35.8 [place] 139731-10-17 10:14:00 Test Item Value Reference Range Interpretation Comments Segs (test code = Segs) 78.7 45.0-75.0 [place] 139731-10-17 10:14:00 Test Item Value Reference Range Interpretation Comments Lymphocytes (test code = Lymphocytes) 13.1 20.0-40.0 [place] 139731-10-17 10:14:00 Test Item Value Reference Range Interpretation Comments Monocytes (test code = Monocytes) 6.8 2.0-12.0 [place] 139731-10-17 10:14:00 Test Item Value Reference Range Interpretation Comments Eosinophils (test code = 0.7 See_Comment [A utomated message] The Eosinophils) system which ge nerated this result tra nsmitted reference range : <=4.0. The reference r arelis was not used to int erpret this result as normal/abnormal . [facility]jmysbxXPRQZYXNZW8706-09-62 10:14:00 Test Item Value Reference Range Interpretation Comments Basophils (test code = 0.7 See_Comment [Aut omated message] The Basophils) system which ge nerated this result tra nsmitted reference range : <=1.0. The reference r arelis was not used to int erpret this result as normal/abnormal . [facility] CentralZuvmrznFZSVZFYDXM5883-58-29 10:14:00 Test Item Value Reference Range Interpretation Comments Neutrophils # (test code = Neutrophils 7.7 1.5-8.1 #) [place] 139731-10-17 10:14:00 Test Item Value Reference Range Interpretation Comments Lymphocytes # (test code = Lymphocytes 1.3 1.0-5.5 #) [place] 139731-10-17 10:14:00 Test Item Value Reference Range Interpretation Comments Monocytes # (test code 0.7 See_Comment [Aut omated message] The = Monocytes #) system which generated this result tra nsmitted reference range : <=0.8. The reference r arelis was not used to int erpret this result as normal/abnormal . [place] 139731-10-17 10:14:00 Test Item Value Reference Range Interpretation Comments Eosinophils # (test code 0.1 See_Comment [A utomated message] The = Eosinophils #) system whic h generated this result tra nsmitted reference range : <=0.5. The reference r arelis was not used to int erpret this result as normal/abnormal . [place] 139731-10-17 10:14:00 Test Item Value Reference Range Interpretation Comments Basophils # (test code 0.1 See_Comment [Aut omated message] The = Basophils #) system which generated this result tra nsmitted reference range : <=0.2. The reference r arelis was not used to int erpret this result as normal/abnormal . [place] 139731-10-17 10:14:00 Test Item Value Reference Range Interpretation Comments PT (test code = PT) 16.8 s 12.0-14.7 [place] [address]-10-17 10:14:00 Test Item Value Reference Range Interpretation Comments INR (test code = INR) 1.39 1 0.85-1.17 [place] 853501-10-17 10:14:00 Test Item Value Reference Range Interpretation Comments Glucose Lvl (test code = Glucose Lvl) 107 70-99 [place] 853501-10-17 10:14:00 Test Item Value Reference Range Interpretation Comments BUN (test code = BUN) 13 7-22 [place] 853501-10-17 10:14:00 Test Item Value Reference Range Interpretation Comments Creatinine Lvl (test code = Creatinine 0.67 0.50-1.40 Lvl) [place] 853501-10-17 10:14:00 Test Item Value Reference Range Interpretation Comments Sodium Lvl (test code = Sodium Lvl) 143 135-145 [place] 853501-10-17 10:14:00 Test Item Value Reference Range Interpretation Comments Potassium Lvl (test code = Potassium 3.3 3.5-5.1 Lvl) [place] 853501-10-17 10:14:00 Test Item Value Reference Range Interpretation Comments Chloride Lvl (test code = Chloride Lvl) 111 95-109 [facility] [employer] [id number] 10:14:00 Test Item Value Reference Range Interpretation Comments CO2 (test code = CO2) 23 24-32 [facility] [id number] 10:14:00 Test Item Value Reference Range Interpretation Comments Calcium Lvl (test code = Calcium Lvl) 9.2 8.5-10.5 [facility] [employer] [id number] 10:14:00 Test Item Value Reference Range Interpretation Comments Total Protein (test code = Total 6.5 6.4-8.4 Protein) [facility] [employer] [id number] 10:14:00 Test Item Value Reference Range Interpretation Comments Albumin Lvl (test code = Albumin Lvl) 2.9 3.5-5.0 [facility] [employer] [id number] 10:14:00 Test Item Value Reference Range Interpretation Comments ALT (test code = ALT) 19 See_Comment [Auto mated message] The system which ge nerated this result transmit sarah reference range : <=65. The reference range was not used to interpr et this result as felicitas l/abnormal. [facility] [employer] [id number] 10:14:00 Test Item Value Reference Range Interpretation Comments AST (test code = AST) 13 See_Comment [Auto mated message] The system which ge nerated this result transmit sarah reference range : <=37. The reference range was not used to interpr et this result as felicitas l/abnormal. [facility] [employer] [id number] 10:14:00 Test Item Value Reference Range Interpretation Comments Alk Phos (test code = Alk Phos) 102 39-136 [facility] [employer] [id number] 10:14:00 Test Item Value Reference Range Interpretation Comments Bili Total (test code = Bili Total) 0.3 0.2-1.3 [facility] [employer] [id number] 10:14:00 Test Item Value Reference Range Interpretation Comments AGAP (test code = AGAP) 12.3 10.0-20.0 [facility] [employer] [id number] 10:14:00 Test Item Value Reference Range Interpretation Comments B/C Ratio (test code = B/C Ratio) 19 1 6-25 [facility]2021-10-17 10:14:00 Test Item Value Reference Range Interpretation Comments Globulin (test code = Globulin) 3.6 2.7-4.2 [facility]2021-10-17 10:14:00 Test Item Value Reference Range Interpretation Comments A/G Ratio (test code = A/G Ratio) 0.8 1 0.7-1.6 [facility]2021-10-17 10:14:00 Test Item Value Reference Range Interpretation Comments eGFR (test code = eGFR) 91 [facility] CentralHbzbhqyVIJOLNPOOU2737-54-75 10:14:00 Test Item Value Reference Range Interpretation Comments WBC (test code = WBC) 9.8 3.7-10.4 [facility] CentralWqqlgwaAKMGBKQGBQ0236-43-55 10:14:00 Test Item Value Reference Range Interpretation Comments RBC (test code = RBC) 3.87 4.20-5.40 [facility] CentralQabkorgAIBNVFGFPE4215-74-05 10:14:00 Test Item Value Reference Range Interpretation Comments Hgb (test code = Hgb) 11.0 12.0-16.0 [facility] CentralEfjfzkhLERJCJUTDX1388-77-38 10:14:00 Test Item Value Reference Range Interpretation Comments Hct (test code = Hct) 33.3 36.0-48.0 [facility] CentralZtyrovuQXYJWFLLYL2348-74-57 10:14:00 Test Item Value Reference Range Interpretation Comments MCV (test code = MCV) 86.1 80.0-98.0 [facility] CentralDzdwpjpZJALVZIFVZ8585-09-46 10:14:00 Test Item Value Reference Range Interpretation Comments MCH (test code = MCH) 28.4 pg 27.0-31.0 [place] 139731-10-17 10:14:00 Test Item Value Reference Range Interpretation Comments MCHC (test code = MCHC) 33.0 32.0-36.0 [facility] CentralXahsnfnLIDZKCXYQS3002-93-08 10:14:00 Test Item Value Reference Range Interpretation Comments RDW (test code = RDW) 15.4 11.5-14.5 [facility] CentralEctsvbpJVBKTNRBFL2600-34-80 10:14:00 Test Item Value Reference Range Interpretation Comments Platelet (test code = Platelet) 418 133-450 [facility] CentralSsspkbgMWKBBNITQQ2215-99-41 10:14:00 Test Item Value Reference Range Interpretation Comments MPV (test code = MPV) 8.1 7.4-10.4 [facility] CentralXbnnvcuQFADSKFUQO0424-59-51 10:14:00 Test Item Value Reference Range Interpretation Comments PTT (test code = PTT) 31.9 s 22.9-35.8 [facility] CentralLsrriobPMAZSDCTVP3731-42-77 10:14:00 Test Item Value Reference Range Interpretation Comments Segs (test code = Segs) 78.7 45.0-75.0 [facility] CentralKpfpdidZNNSRXNGIT1735-02-13 10:14:00 Test Item Value Reference Range Interpretation Comments Lymphocytes (test code = Lymphocytes) 13.1 20.0-40.0 [facility] CentralGalyqftPGMPVRQKCR2611-59-51 10:14:00 Test Item Value Reference Range Interpretation Comments Monocytes (test code = Monocytes) 6.8 2.0-12.0 [facility] CentralMaewkhyJLFGYGDQWG1182-12-92 10:14:00 Test Item Value Reference Range Interpretation Comments Eosinophils (test code = 0.7 See_Comment [A utomated message] The Eosinophils) system which ge nerated this result tra nsmitted reference range : <=4.0. The reference r arelis was not used to int erpret this result as normal/abnormal . [facility] CentralZmhuklfLVIUKSNIVI6295-89-38 10:14:00 Test Item Value Reference Range Interpretation Comments Basophils (test code = 0.7 See_Comment [Aut omated message] The Basophils) system which ge nerated this result tra nsmitted reference range : <=1.0. The reference r arelis was not used to int erpret this result as normal/abnormal . [facility] CentralOpgnuugLPUGRCORCS9960-48-70 10:14:00 Test Item Value Reference Range Interpretation Comments Neutrophils # (test code = Neutrophils 7.7 1.5-8.1 #) [facility] CentralMhjqgxgQXBRHUZCIZ2177-23-29 10:14:00 Test Item Value Reference Range Interpretation Comments Lymphocytes # (test code = Lymphocytes 1.3 1.0-5.5 #) [place] 139731-10-17 10:14:00 Test Item Value Reference Range Interpretation Comments Monocytes # (test code 0.7 See_Comment [Aut omated message] The = Monocytes #) system which generated this result tra nsmitted reference range : <=0.8. The reference r arelis was not used to int erpret this result as normal/abnormal . [place] 139731-10-17 10:14:00 Test Item Value Reference Range Interpretation Comments Eosinophils # (test code 0.1 See_Comment [A utomated message] The = Eosinophils #) system whic h generated this result tra nsmitted reference range : <=0.5. The reference r arelis was not used to int erpret this result as normal/abnormal . [place] 139731-10-17 10:14:00 Test Item Value Reference Range Interpretation Comments Basophils # (test code 0.1 See_Comment [Aut omated message] The = Basophils #) system which generated this result tra nsmitted reference range : <=0.2. The reference r arelis was not used to int erpret this result as normal/abnormal . [place] [address]-10-17 10:14:00 Test Item Value Reference Range Interpretation Comments PT (test code = PT) 16.8 s 12.0-14.7 [address]10-17 10:14:00 Test Item Value Reference Range Interpretation Comments INR (test code = INR) 1.39 1 0.85-1.17 [place] 853501-10-17 10:14:00 Test Item Value Reference Range Interpretation Comments Glucose Lvl (test code = Glucose Lvl) 107 70-99 [place] 853501-10-17 10:14:00 Test Item Value Reference Range Interpretation Comments BUN (test code = BUN) 13 7-22 [place] 853501-10-17 10:14:00 Test Item Value Reference Range Interpretation Comments Creatinine Lvl (test code = Creatinine 0.67 0.50-1.40 Lvl) [place] 853501-10-17 10:14:00 Test Item Value Reference Range Interpretation Comments Sodium Lvl (test code = Sodium Lvl) 143 135-145 [place] 853501-10-17 10:14:00 Test Item Value Reference Range Interpretation Comments Potassium Lvl (test code = Potassium 3.3 3.5-5.1 Lvl) [place] 853501-10-17 10:14:00 Test Item Value Reference Range Interpretation Comments Chloride Lvl (test code = Chloride Lvl) 111 95-109 [facility] [employer] [id number] 10:14:00 Test Item Value Reference Range Interpretation Comments CO2 (test code = CO2) 23 24-32 [facility] [employer] [id number] 10:14:00 Test Item Value Reference Range Interpretation Comments Calcium Lvl (test code = Calcium Lvl) 9.2 8.5-10.5 [facility] [employer] [id number] 10:14:00 Test Item Value Reference Range Interpretation Comments Total Protein (test code = Total 6.5 6.4-8.4 Protein) [facility] [employer] [id number] 10:14:00 Test Item Value Reference Range Interpretation Comments Albumin Lvl (test code = Albumin Lvl) 2.9 3.5-5.0 [facility] [employer] [id number] 10:14:00 Test Item Value Reference Range Interpretation Comments ALT (test code = ALT) 19 See_Comment [Auto mated message] The system which ge nerated this result transmit sarah reference range : <=65. The reference range was not used to interpr et this result as felicitas l/abnormal. [facility] [employer] [id number] 10:14:00 Test Item Value Reference Range Interpretation Comments AST (test code = AST) 13 See_Comment [Auto mated message] The system which ge nerated this result transmit sarah reference range : <=37. The reference range was not used to interpr et this result as felicitas l/abnormal. [facility] [employer] [id number] 10:14:00 Test Item Value Reference Range Interpretation Comments Alk Phos (test code = Alk Phos) 102 39-136 [facility] [employer] [id number] 10:14:00 Test Item Value Reference Range Interpretation Comments Bili Total (test code = Bili Total) 0.3 0.2-1.3 [facility] [employer] [id number] 10:14:00 Test Item Value Reference Range Interpretation Comments AGAP (test code = AGAP) 12.3 10.0-20.0 [facility] [employer] [id number] 10:14:00 Test Item Value Reference Range Interpretation Comments B/C Ratio (test code = B/C Ratio) 19 1 6-25 [facility] [employer] [id number] 10:14:00 Test Item Value Reference Range Interpretation Comments Globulin (test code = Globulin) 3.6 2.7-4.2 [facility] [id number] 10:14:00 Test Item Value Reference Range Interpretation Comments A/G Ratio (test code = A/G Ratio) 0.8 1 0.7-1.6 [facility] [id number] 10:14:00 Test Item Value Reference Range Interpretation Comments eGFR (test code = eGFR) 91 [facility] CentralVeuddftCFTXHKYDFR2779-35-42 10:14:00 Test Item Value Reference Range Interpretation Comments WBC (test code = WBC) 9.8 3.7-10.4 [facility] CentralTtxzrqmKAILISNCXI8923-29-37 10:14:00 Test Item Value Reference Range Interpretation Comments RBC (test code = RBC) 3.87 4.20-5.40 [facility] CentralDyqhvyxTECNTMDJPT5941-99-32 10:14:00 Test Item Value Reference Range Interpretation Comments Hgb (test code = Hgb) 11.0 12.0-16.0 [place] 139731-10-17 10:14:00 Test Item Value Reference Range Interpretation Comments Hct (test code = Hct) 33.3 36.0-48.0 [place] 139731-10-17 10:14:00 Test Item Value Reference Range Interpretation Comments MCV (test code = MCV) 86.1 80.0-98.0 [place] 139731-10-17 10:14:00 Test Item Value Reference Range Interpretation Comments MCH (test code = MCH) 28.4 pg 27.0-31.0 [facility] CentralDhndetgLNCJZYQRRL1437-97-65 10:14:00 Test Item Value Reference Range Interpretation Comments MCHC (test code = MCHC) 33.0 32.0-36.0 [place] 139731-10-17 10:14:00 Test Item Value Reference Range Interpretation Comments RDW (test code = RDW) 15.4 11.5-14.5 [facility] CentralZdnsxisMANEAHQYKV3229-86-10 10:14:00 Test Item Value Reference Range Interpretation Comments Platelet (test code = Platelet) 418 133-450 [facility] CentralUimqqcySVUVUICEEM3279-70-44 10:14:00 Test Item Value Reference Range Interpretation Comments MPV (test code = MPV) 8.1 7.4-10.4 [facility] CentralSgihhfuQXSAVPUABV5626-09-66 10:14:00 Test Item Value Reference Range Interpretation Comments PTT (test code = PTT) 31.9 s 22.9-35.8 [facility] CentralBycgwuvHGFVZJXNDG5806-01-11 10:14:00 Test Item Value Reference Range Interpretation Comments Segs (test code = Segs) 78.7 45.0-75.0 [facility] CentralMaycoazZRAWDYXCKZ6466-63-17 10:14:00 Test Item Value Reference Range Interpretation Comments Lymphocytes (test code = Lymphocytes) 13.1 20.0-40.0 [place] 139731-10-17 10:14:00 Test Item Value Reference Range Interpretation Comments Monocytes (test code = Monocytes) 6.8 2.0-12.0 [facility] CentralKtbhdqpZTEZVOQPWA8898-64-50 10:14:00 Test Item Value Reference Range Interpretation Comments Eosinophils (test code = 0.7 See_Comment [A utomated message] The Eosinophils) system which ge nerated this result tra nsmitted reference range : <=4.0. The reference r arelis was not used to int erpret this result as normal/abnormal . [facility] CentralMgazwkqNLTJLDNPPR3415-26-84 10:14:00 Test Item Value Reference Range Interpretation Comments Basophils (test code = 0.7 See_Comment [Aut omated message] The Basophils) system which ge nerated this result tra nsmitted reference range : <=1.0. The reference r arelis was not used to int erpret this result as normal/abnormal . [facility] CentralDrptjhbZKOSSIWCFA5648-64-86 10:14:00 Test Item Value Reference Range Interpretation Comments Neutrophils # (test code = Neutrophils 7.7 1.5-8.1 #) [facility] CentralYsuuwaoDNKTNWDGVX7932-51-56 10:14:00 Test Item Value Reference Range Interpretation Comments Lymphocytes # (test code = Lymphocytes 1.3 1.0-5.5 #) [facility] CentralFxmxshlILFWCPXLTN2986-67-08 10:14:00 Test Item Value Reference Range Interpretation Comments Monocytes # (test code 0.7 See_Comment [Aut omated message] The = Monocytes #) system which generated this result tra nsmitted reference range : <=0.8. The reference r arelis was not used to int erpret this result as normal/abnormal . [place] [address]-10-17 10:14:00 Test Item Value Reference Range Interpretation Comments Eosinophils # (test code 0.1 See_Comment [A utomated message] The = Eosinophils #) system whic h generated this result tra nsmitted reference range : <=0.5. The reference r arelis was not used to int erpret this result as normal/abnormal . [place] 139731-10-17 10:14:00 Test Item Value Reference Range Interpretation Comments Basophils # (test code 0.1 See_Comment [Aut omated message] The = Basophils #) system which generated this result tra nsmitted reference range : <=0.2. The reference r arelis was not used to int erpret this result as normal/abnormal . [place] 139731-10-17 10:14:00 Test Item Value Reference Range Interpretation Comments PT (test code = PT) 16.8 s 12.0-14.7 [address]10-17 10:14:00 Test Item Value Reference Range Interpretation Comments INR (test code = INR) 1.39 1 0.85-1.17 [place] 853501-10-17 10:14:00 Test Item Value Reference Range Interpretation Comments Glucose Lvl (test code = Glucose Lvl) 107 70-99 [place] 853501-10-17 10:14:00 Test Item Value Reference Range Interpretation Comments BUN (test code = BUN) 13 7-22 [place] 853501-10-17 10:14:00 Test Item Value Reference Range Interpretation Comments Creatinine Lvl (test code = Creatinine 0.67 0.50-1.40 Lvl) [place] 853501-10-17 10:14:00 Test Item Value Reference Range Interpretation Comments Sodium Lvl (test code = Sodium Lvl) 143 135-145 [place] 853501-10-17 10:14:00 Test Item Value Reference Range Interpretation Comments Potassium Lvl (test code = Potassium 3.3 3.5-5.1 Lvl) [place] 853501-10-17 10:14:00 Test Item Value Reference Range Interpretation Comments Chloride Lvl (test code = Chloride Lvl) 111 95-109 [place] 853501-10-17 10:14:00 Test Item Value Reference Range Interpretation Comments CO2 (test code = CO2) 23 24-32 [facility] [id number] 10:14:00 Test Item Value Reference Range Interpretation Comments Calcium Lvl (test code = Calcium Lvl) 9.2 8.5-10.5 [facility] [id number] 10:14:00 Test Item Value Reference Range Interpretation Comments Total Protein (test code = Total 6.5 6.4-8.4 Protein) [facility] [id number] 10:14:00 Test Item Value Reference Range Interpretation Comments Albumin Lvl (test code = Albumin Lvl) 2.9 3.5-5.0 [facility] [employer] [id number] 10:14:00 Test Item Value Reference Range Interpretation Comments ALT (test code = ALT) 19 See_Comment [Auto mated message] The system which ge nerated this result transmit sarah reference range : <=65. The reference range was not used to interpr et this result as felicitas l/abnormal. [facility] [employer] [id number] 10:14:00 Test Item Value Reference Range Interpretation Comments AST (test code = AST) 13 See_Comment [Auto mated message] The system which ge nerated this result transmit sarah reference range : <=37. The reference range was not used to interpr et this result as felicitas l/abnormal. [facility] [employer] [id number] 10:14:00 Test Item Value Reference Range Interpretation Comments Alk Phos (test code = Alk Phos) 102 39-136 [facility] [employer] [id number] 10:14:00 Test Item Value Reference Range Interpretation Comments Bili Total (test code = Bili Total) 0.3 0.2-1.3 [facility] [employer] [id number] 10:14:00 Test Item Value Reference Range Interpretation Comments AGAP (test code = AGAP) 12.3 10.0-20.0 [facility] [employer] [id number] 10:14:00 Test Item Value Reference Range Interpretation Comments B/C Ratio (test code = B/C Ratio) 19 1 6-25 [facility] [employer] [id number] 10:14:00 Test Item Value Reference Range Interpretation Comments Globulin (test code = Globulin) 3.6 2.7-4.2 [place] 853501-10-17 10:14:00 Test Item Value Reference Range Interpretation Comments A/G Ratio (test code = A/G Ratio) 0.8 1 0.7-1.6 [place] 853501-10-17 10:14:00 Test Item Value Reference Range Interpretation Comments eGFR (test code = eGFR) 91 [place] 139731-10-17 10:14:00 Test Item Value Reference Range Interpretation Comments WBC (test code = WBC) 9.8 3.7-10.4 [place] 139731-10-17 10:14:00 Test Item Value Reference Range Interpretation Comments RBC (test code = RBC) 3.87 4.20-5.40 [place] 139731-10-17 10:14:00 Test Item Value Reference Range Interpretation Comments Hgb (test code = Hgb) 11.0 12.0-16.0 [place] 139731-10-17 10:14:00 Test Item Value Reference Range Interpretation Comments Hct (test code = Hct) 33.3 36.0-48.0 [place] 139731-10-17 10:14:00 Test Item Value Reference Range Interpretation Comments MCV (test code = MCV) 86.1 80.0-98.0 [place] 139731-10-17 10:14:00 Test Item Value Reference Range Interpretation Comments MCH (test code = MCH) 28.4 pg 27.0-31.0 [place] 139731-10-17 10:14:00 Test Item Value Reference Range Interpretation Comments MCHC (test code = MCHC) 33.0 32.0-36.0 [place] 139731-10-17 10:14:00 Test Item Value Reference Range Interpretation Comments RDW (test code = RDW) 15.4 11.5-14.5 [place] 139731-10-17 10:14:00 Test Item Value Reference Range Interpretation Comments Platelet (test code = Platelet) 418 133-450 [place] 139731-10-17 10:14:00 Test Item Value Reference Range Interpretation Comments MPV (test code = MPV) 8.1 7.4-10.4 [place] 139731-10-17 10:14:00 Test Item Value Reference Range Interpretation Comments PTT (test code = PTT) 31.9 s 22.9-35.8 [place] 139731-10-17 10:14:00 Test Item Value Reference Range Interpretation Comments Segs (test code = Segs) 78.7 45.0-75.0 [place] 139731-10-17 10:14:00 Test Item Value Reference Range Interpretation Comments Lymphocytes (test code = Lymphocytes) 13.1 20.0-40.0 [place] 139731-10-17 10:14:00 Test Item Value Reference Range Interpretation Comments Monocytes (test code = Monocytes) 6.8 2.0-12.0 [place] 139731-10-17 10:14:00 Test Item Value Reference Range Interpretation Comments Eosinophils (test code = 0.7 See_Comment [A utomated message] The Eosinophils) system which ge nerated this result tra nsmitted reference range : <=4.0. The reference r arelis was not used to int erpret this result as normal/abnormal . [place] 139731-10-17 10:14:00 Test Item Value Reference Range Interpretation Comments Basophils (test code = 0.7 See_Comment [Aut omated message] The Basophils) system which ge nerated this result tra nsmitted reference range : <=1.0. The reference r arelis was not used to int erpret this result as normal/abnormal . [place] 139731-10-17 10:14:00 Test Item Value Reference Range Interpretation Comments Neutrophils # (test code = Neutrophils 7.7 1.5-8.1 #) [place] 139731-10-17 10:14:00 Test Item Value Reference Range Interpretation Comments Lymphocytes # (test code = Lymphocytes 1.3 1.0-5.5 #) [place] 139731-10-17 10:14:00 Test Item Value Reference Range Interpretation Comments Monocytes # (test code 0.7 See_Comment [Aut omated message] The = Monocytes #) system which generated this result tra nsmitted reference range : <=0.8. The reference r arelis was not used to int erpret this result as normal/abnormal . [place] 139731-10-17 10:14:00 Test Item Value Reference Range Interpretation Comments Eosinophils # (test code 0.1 See_Comment [A utomated message] The = Eosinophils #) system whic h generated this result tra nsmitted reference range : <=0.5. The reference r arelis was not used to int erpret this result as normal/abnormal . [place] 139731-10-17 10:14:00 Test Item Value Reference Range Interpretation Comments Basophils # (test code 0.1 See_Comment [Aut omated message] The = Basophils #) system which generated this result tra nsmitted reference range : <=0.2. The reference r arelis was not used to int erpret this result as normal/abnormal . [place] 139731-10-17 10:14:00 Test Item Value Reference Range Interpretation Comments PT (test code = PT) 16.8 s 12.0-14.7 [place] [address]-10-17 10:14:00 Test Item Value Reference Range Interpretation Comments INR (test code = INR) 1.39 1 0.85-1.17 [place] 853501-10-17 10:14:00 Test Item Value Reference Range Interpretation Comments Glucose Lvl (test code = Glucose Lvl) 107 70-99 [place] 853501-10-17 10:14:00 Test Item Value Reference Range Interpretation Comments BUN (test code = BUN) 13 7-22 [place] 853501-10-17 10:14:00 Test Item Value Reference Range Interpretation Comments Creatinine Lvl (test code = Creatinine 0.67 0.50-1.40 Lvl) [place] 853501-10-17 10:14:00 Test Item Value Reference Range Interpretation Comments Sodium Lvl (test code = Sodium Lvl) 143 135-145 [place] 853501-10-17 10:14:00 Test Item Value Reference Range Interpretation Comments Potassium Lvl (test code = Potassium 3.3 3.5-5.1 Lvl) [place] 853501-10-17 10:14:00 Test Item Value Reference Range Interpretation Comments Chloride Lvl (test code = Chloride Lvl) 111 95-109 [place] 853501-10-17 10:14:00 Test Item Value Reference Range Interpretation Comments CO2 (test code = CO2) 23 24-32 [place] 853501-10-17 10:14:00 Test Item Value Reference Range Interpretation Comments Calcium Lvl (test code = Calcium Lvl) 9.2 8.5-10.5 [facility] [id number] 10:14:00 Test Item Value Reference Range Interpretation Comments Total Protein (test code = Total 6.5 6.4-8.4 Protein) [place] 853501-10-17 10:14:00 Test Item Value Reference Range Interpretation Comments Albumin Lvl (test code = Albumin Lvl) 2.9 3.5-5.0 [facility] [id number] 10:14:00 Test Item Value Reference Range Interpretation Comments ALT (test code = ALT) 19 See_Comment [Auto mated message] The system which ge nerated this result transmit sarah reference range : <=65. The reference range was not used to interpr et this result as felicitas l/abnormal. [facility] [id number] 10:14:00 Test Item Value Reference Range Interpretation Comments AST (test code = AST) 13 See_Comment [Auto mated message] The system which ge nerated this result transmit sarah reference range : <=37. The reference range was not used to interpr et this result as felicitas l/abnormal. [facility] [id number] 10:14:00 Test Item Value Reference Range Interpretation Comments Alk Phos (test code = Alk Phos) 102 39-136 [facility] [id number] 10:14:00 Test Item Value Reference Range Interpretation Comments Bili Total (test code = Bili Total) 0.3 0.2-1.3 [facility] [id number] 10:14:00 Test Item Value Reference Range Interpretation Comments AGAP (test code = AGAP) 12.3 10.0-20.0 [facility] [employer] [id number] 10:14:00 Test Item Value Reference Range Interpretation Comments B/C Ratio (test code = B/C Ratio) 19 1 6-25 [facility] [id number] 10:14:00 Test Item Value Reference Range Interpretation Comments Globulin (test code = Globulin) 3.6 2.7-4.2 [facility] [employer] [id number] 10:14:00 Test Item Value Reference Range Interpretation Comments A/G Ratio (test code = A/G Ratio) 0.8 1 0.7-1.6 [facility]2021-10-17 10:14:00 Test Item Value Reference Range Interpretation Comments eGFR (test code = eGFR) 91 [facility]CmzqcaoYFQLQCOGTB1248-46-34 10:14:00 Test Item Value Reference Range Interpretation Comments WBC (test code = WBC) 9.8 3.7-10.4 [facility] CentralFxbfqisUZPTNNORPJ6750-33-67 10:14:00 Test Item Value Reference Range Interpretation Comments RBC (test code = RBC) 3.87 4.20-5.40 [facility] CentralKcxtvsfAHYJKJFWUS4842-56-36 10:14:00 Test Item Value Reference Range Interpretation Comments Hgb (test code = Hgb) 11.0 12.0-16.0 [facility] CentralMvlvkpgLWHTXTTDOU2009-12-46 10:14:00 Test Item Value Reference Range Interpretation Comments Hct (test code = Hct) 33.3 36.0-48.0 [facility] CentralVlkdberCRWKXHWTVB8341-58-29 10:14:00 Test Item Value Reference Range Interpretation Comments MCV (test code = MCV) 86.1 80.0-98.0 [facility] CentralXihdktoRVKCHUIFCJ3398-88-07 10:14:00 Test Item Value Reference Range Interpretation Comments MCH (test code = MCH) 28.4 pg 27.0-31.0 [facility] CentralGxzzsxnTZQWKZAJTN0896-34-51 10:14:00 Test Item Value Reference Range Interpretation Comments MCHC (test code = MCHC) 33.0 32.0-36.0 [facility] CentralQfdhcebHYBEXQSLBC0413-53-35 10:14:00 Test Item Value Reference Range Interpretation Comments RDW (test code = RDW) 15.4 11.5-14.5 [place] 139731-10-17 10:14:00 Test Item Value Reference Range Interpretation Comments Platelet (test code = Platelet) 418 133-450 [facility] CentralUeooupsTFYPEUZDCP3504-75-00 10:14:00 Test Item Value Reference Range Interpretation Comments MPV (test code = MPV) 8.1 7.4-10.4 [facility] CentralHwmotluQWRLHWPRKN8399-75-40 10:14:00 Test Item Value Reference Range Interpretation Comments PTT (test code = PTT) 31.9 s 22.9-35.8 [place] 139731-10-17 10:14:00 Test Item Value Reference Range Interpretation Comments Segs (test code = Segs) 78.7 45.0-75.0 [place] 139731-10-17 10:14:00 Test Item Value Reference Range Interpretation Comments Lymphocytes (test code = Lymphocytes) 13.1 20.0-40.0 [place] 139731-10-17 10:14:00 Test Item Value Reference Range Interpretation Comments Monocytes (test code = Monocytes) 6.8 2.0-12.0 [place] 139731-10-17 10:14:00 Test Item Value Reference Range Interpretation Comments Eosinophils (test code = 0.7 See_Comment [A utomated message] The Eosinophils) system which ge nerated this result tra nsmitted reference range : <=4.0. The reference r arelis was not used to int erpret this result as normal/abnormal . [place] [address]-10-17 10:14:00 Test Item Value Reference Range Interpretation Comments Basophils (test code = 0.7 See_Comment [Aut omated message] The Basophils) system which ge nerated this result tra nsmitted reference range : <=1.0. The reference r arelis was not used to int erpret this result as normal/abnormal . [place] 139731-10-17 10:14:00 Test Item Value Reference Range Interpretation Comments Neutrophils # (test code = Neutrophils 7.7 1.5-8.1 #) [place] 139731-10-17 10:14:00 Test Item Value Reference Range Interpretation Comments Lymphocytes # (test code = Lymphocytes 1.3 1.0-5.5 #) [place] 139731-10-17 10:14:00 Test Item Value Reference Range Interpretation Comments Monocytes # (test code 0.7 See_Comment [Aut omated message] The = Monocytes #) system which generated this result tra nsmitted reference range : <=0.8. The reference r arelis was not used to int erpret this result as normal/abnormal . [place] 139731-10-17 10:14:00 Test Item Value Reference Range Interpretation Comments Eosinophils # (test code 0.1 See_Comment [A utomated message] The = Eosinophils #) system whic h generated this result tra nsmitted reference range : <=0.5. The reference r arelis was not used to int erpret this result as normal/abnormal . [place] 139731-10-17 10:14:00 Test Item Value Reference Range Interpretation Comments Basophils # (test code 0.1 See_Comment [Aut omated message] The = Basophils #) system which generated this result tra nsmitted reference range : <=0.2. The reference r arelis was not used to int erpret this result as normal/abnormal . [place] 139731-10-17 10:14:00 Test Item Value Reference Range Interpretation Comments PT (test code = PT) 16.8 s 12.0-14.7 [place] [address]-10-17 10:14:00 Test Item Value Reference Range Interpretation Comments INR (test code = INR) 1.39 1 0.85-1.17 [place] 853501-10-17 10:14:00 Test Item Value Reference Range Interpretation Comments Glucose Lvl (test code = Glucose Lvl) 107 70-99 [place] 853501-10-17 10:14:00 Test Item Value Reference Range Interpretation Comments BUN (test code = BUN) 13 7-22 [place] 853501-10-17 10:14:00 Test Item Value Reference Range Interpretation Comments Creatinine Lvl (test code = Creatinine 0.67 0.50-1.40 Lvl) [place] 853501-10-17 10:14:00 Test Item Value Reference Range Interpretation Comments Sodium Lvl (test code = Sodium Lvl) 143 135-145 [place] 853501-10-17 10:14:00 Test Item Value Reference Range Interpretation Comments Potassium Lvl (test code = Potassium 3.3 3.5-5.1 Lvl) [place] 853501-10-17 10:14:00 Test Item Value Reference Range Interpretation Comments Chloride Lvl (test code = Chloride Lvl) 111 95-109 [place] 853501-10-17 10:14:00 Test Item Value Reference Range Interpretation Comments CO2 (test code = CO2) 23 24-32 [place] 853501-10-17 10:14:00 Test Item Value Reference Range Interpretation Comments Calcium Lvl (test code = Calcium Lvl) 9.2 8.5-10.5 [facility] [id number] 10:14:00 Test Item Value Reference Range Interpretation Comments Total Protein (test code = Total 6.5 6.4-8.4 Protein) [place] 853501-10-17 10:14:00 Test Item Value Reference Range Interpretation Comments Albumin Lvl (test code = Albumin Lvl) 2.9 3.5-5.0 [facility] [id number] 10:14:00 Test Item Value Reference Range Interpretation Comments ALT (test code = ALT) 19 See_Comment [Auto mated message] The system which ge nerated this result transmit sarah reference range : <=65. The reference range was not used to interpr et this result as felicitas l/abnormal. [facility] [id number] 10:14:00 Test Item Value Reference Range Interpretation Comments AST (test code = AST) 13 See_Comment [Auto mated message] The system which ge nerated this result transmit sarah reference range : <=37. The reference range was not used to interpr et this result as felicitas l/abnormal. [facility] [id number] 10:14:00 Test Item Value Reference Range Interpretation Comments Alk Phos (test code = Alk Phos) 102 39-136 [facility] [id number] 10:14:00 Test Item Value Reference Range Interpretation Comments Bili Total (test code = Bili Total) 0.3 0.2-1.3 [facility] [id number] 10:14:00 Test Item Value Reference Range Interpretation Comments AGAP (test code = AGAP) 12.3 10.0-20.0 [facility] [id number] 10:14:00 Test Item Value Reference Range Interpretation Comments B/C Ratio (test code = B/C Ratio) 19 1 6-25 [facility] [id number] 10:14:00 Test Item Value Reference Range Interpretation Comments Globulin (test code = Globulin) 3.6 2.7-4.2 [facility] [id number] 10:14:00 Test Item Value Reference Range Interpretation Comments A/G Ratio (test code = A/G Ratio) 0.8 1 0.7-1.6 [facility]2021-10-17 10:14:00 Test Item Value Reference Range Interpretation Comments eGFR (test code = eGFR) 91 [facility] CentralMbpjowdMXYMVLJEOC5615-79-39 10:14:00 Test Item Value Reference Range Interpretation Comments WBC (test code = WBC) 9.8 3.7-10.4 [place] 139731-10-17 10:14:00 Test Item Value Reference Range Interpretation Comments RBC (test code = RBC) 3.87 4.20-5.40 [place] 139731-10-17 10:14:00 Test Item Value Reference Range Interpretation Comments Hgb (test code = Hgb) 11.0 12.0-16.0 [place] 139731-10-17 10:14:00 Test Item Value Reference Range Interpretation Comments Hct (test code = Hct) 33.3 36.0-48.0 [place] 139731-10-17 10:14:00 Test Item Value Reference Range Interpretation Comments MCV (test code = MCV) 86.1 80.0-98.0 [place] 139731-10-17 10:14:00 Test Item Value Reference Range Interpretation Comments MCH (test code = MCH) 28.4 pg 27.0-31.0 [facility] CentralCtugnegOQAOYOOBDO5044-60-92 10:14:00 Test Item Value Reference Range Interpretation Comments MCHC (test code = MCHC) 33.0 32.0-36.0 [facility] CentralTwrenckTFGTVRNCDH5269-12-28 10:14:00 Test Item Value Reference Range Interpretation Comments RDW (test code = RDW) 15.4 11.5-14.5 [facility] CentralLybtdcdWMCYMNRVRE2472-69-15 10:14:00 Test Item Value Reference Range Interpretation Comments Platelet (test code = Platelet) 418 133-450 [facility] CentralXcixlqsYWDGVBGCKS9026-10-20 10:14:00 Test Item Value Reference Range Interpretation Comments MPV (test code = MPV) 8.1 7.4-10.4 [place] 139731-10-17 10:14:00 Test Item Value Reference Range Interpretation Comments PTT (test code = PTT) 31.9 s 22.9-35.8 [place] 139731-10-17 10:14:00 Test Item Value Reference Range Interpretation Comments Segs (test code = Segs) 78.7 45.0-75.0 [facility] CentralHvvuascKWYYIQGFSY8541-81-55 10:14:00 Test Item Value Reference Range Interpretation Comments Lymphocytes (test code = Lymphocytes) 13.1 20.0-40.0 [facility] CentralFosgjehFMDRHRWBOY9030-57-47 10:14:00 Test Item Value Reference Range Interpretation Comments Monocytes (test code = Monocytes) 6.8 2.0-12.0 [facility] CentralRmkmvgjEQILQSUCPL8430-24-06 10:14:00 Test Item Value Reference Range Interpretation Comments Eosinophils (test code = 0.7 See_Comment [A utomated message] The Eosinophils) system which ge nerated this result tra nsmitted reference range : <=4.0. The reference r arelis was not used to int erpret this result as normal/abnormal . [facility] CentralBfjuadxTBAAJRMWTU3279-62-37 10:14:00 Test Item Value Reference Range Interpretation Comments Basophils (test code = 0.7 See_Comment [Aut omated message] The Basophils) system which ge nerated this result tra nsmitted reference range : <=1.0. The reference r arelis was not used to int erpret this result as normal/abnormal . [facility] CentralXjvbyksCCSLIBKETD4322-07-73 10:14:00 Test Item Value Reference Range Interpretation Comments Neutrophils # (test code = Neutrophils 7.7 1.5-8.1 #) [facility] CentralDxzmcxwTABTTIGCMY4861-58-64 10:14:00 Test Item Value Reference Range Interpretation Comments Lymphocytes # (test code = Lymphocytes 1.3 1.0-5.5 #) [place] 139731-10-17 10:14:00 Test Item Value Reference Range Interpretation Comments Monocytes # (test code 0.7 See_Comment [Aut omated message] The = Monocytes #) system which generated this result tra nsmitted reference range : <=0.8. The reference r arelis was not used to int erpret this result as normal/abnormal . [facility] CentralWehalcvSVVZZYKQGW3096-26-15 10:14:00 Test Item Value Reference Range Interpretation Comments Eosinophils # (test code 0.1 See_Comment [A utomated message] The = Eosinophils #) system ic h generated this result tra nsmitted reference range : <=0.5. The reference r arelis was not used to int erpret this result as normal/abnormal . [place] 139731-10-17 10:14:00 Test Item Value Reference Range Interpretation Comments Basophils # (test code 0.1 See_Comment [Aut omated message] The = Basophils #) system which generated this result tra nsmitted reference range : <=0.2. The reference r arelis was not used to int erpret this result as normal/abnormal . [place] 139731-10-17 10:14:00 Test Item Value Reference Range Interpretation Comments PT (test code = PT) 16.8 s 12.0-14.7 [place] [address]-10-17 10:14:00 Test Item Value Reference Range Interpretation Comments INR (test code = INR) 1.39 1 0.85-1.17 [place] 853501-10-17 10:14:00 Test Item Value Reference Range Interpretation Comments Glucose Lvl (test code = Glucose Lvl) 107 70-99 [place] 853501-10-17 10:14:00 Test Item Value Reference Range Interpretation Comments BUN (test code = BUN) 13 7-22 [place] 853501-10-17 10:14:00 Test Item Value Reference Range Interpretation Comments Creatinine Lvl (test code = Creatinine 0.67 0.50-1.40 Lvl) [place] 853501-10-17 10:14:00 Test Item Value Reference Range Interpretation Comments Sodium Lvl (test code = Sodium Lvl) 143 135-145 [place] 853501-10-17 10:14:00 Test Item Value Reference Range Interpretation Comments Potassium Lvl (test code = Potassium 3.3 3.5-5.1 Lvl) [place] 853501-10-17 10:14:00 Test Item Value Reference Range Interpretation Comments Chloride Lvl (test code = Chloride Lvl) 111 95-109 [place] 853501-10-17 10:14:00 Test Item Value Reference Range Interpretation Comments CO2 (test code = CO2) 23 24-32 [place] 853501-10-17 10:14:00 Test Item Value Reference Range Interpretation Comments Calcium Lvl (test code = Calcium Lvl) 9.2 8.5-10.5 [place] 853501-10-17 10:14:00 Test Item Value Reference Range Interpretation Comments Total Protein (test code = Total 6.5 6.4-8.4 Protein) [place] 853501-10-17 10:14:00 Test Item Value Reference Range Interpretation Comments Albumin Lvl (test code = Albumin Lvl) 2.9 3.5-5.0 [place] 853501-10-17 10:14:00 Test Item Value Reference Range Interpretation Comments ALT (test code = ALT) 19 See_Comment [Auto mated message] The system which ge nerated this result transmit sarah reference range : <=65. The reference range was not used to interpr et this result as felicitas l/abnormal. [place] 853501-10-17 10:14:00 Test Item Value Reference Range Interpretation Comments AST (test code = AST) 13 See_Comment [Auto mated message] The system which ge nerated this result transmit sarah reference range : <=37. The reference range was not used to interpr et this result as felicitas l/abnormal. [place] 853501-10-17 10:14:00 Test Item Value Reference Range Interpretation Comments Alk Phos (test code = Alk Phos) 102 39-136 [place] 853501-10-17 10:14:00 Test Item Value Reference Range Interpretation Comments Bili Total (test code = Bili Total) 0.3 0.2-1.3 [place] 853501-10-17 10:14:00 Test Item Value Reference Range Interpretation Comments AGAP (test code = AGAP) 12.3 10.0-20.0 [place] 853501-10-17 10:14:00 Test Item Value Reference Range Interpretation Comments B/C Ratio (test code = B/C Ratio) 19 1 6-25 [place] 853501-10-17 10:14:00 Test Item Value Reference Range Interpretation Comments Globulin (test code = Globulin) 3.6 2.7-4.2 [place] 853501-10-17 10:14:00 Test Item Value Reference Range Interpretation Comments A/G Ratio (test code = A/G Ratio) 0.8 1 0.7-1.6 [place] 853501-10-17 10:14:00 Test Item Value Reference Range Interpretation Comments eGFR (test code = eGFR) 91 [facility] CentralAsdlnjcQRGHOAGQKS3975-20-66 10:14:00 Test Item Value Reference Range Interpretation Comments WBC (test code = WBC) 9.8 3.7-10.4 [place] 139731-10-17 10:14:00 Test Item Value Reference Range Interpretation Comments RBC (test code = RBC) 3.87 4.20-5.40 [place] 139731-10-17 10:14:00 Test Item Value Reference Range Interpretation Comments Hgb (test code = Hgb) 11.0 12.0-16.0 [place] [address]-10-17 10:14:00 Test Item Value Reference Range Interpretation Comments Hct (test code = Hct) 33.3 36.0-48.0 [place] 139731-10-17 10:14:00 Test Item Value Reference Range Interpretation Comments MCV (test code = MCV) 86.1 80.0-98.0 [place] 139731-10-17 10:14:00 Test Item Value Reference Range Interpretation Comments MCH (test code = MCH) 28.4 pg 27.0-31.0 [place] 139731-10-17 10:14:00 Test Item Value Reference Range Interpretation Comments MCHC (test code = MCHC) 33.0 32.0-36.0 [place] 139731-10-17 10:14:00 Test Item Value Reference Range Interpretation Comments RDW (test code = RDW) 15.4 11.5-14.5 [place] 139731-10-17 10:14:00 Test Item Value Reference Range Interpretation Comments Platelet (test code = Platelet) 418 133-450 [facility] CentralJvocpxwKWPYQHTDRU4353-05-43 10:14:00 Test Item Value Reference Range Interpretation Comments MPV (test code = MPV) 8.1 7.4-10.4 [place] 139731-10-17 10:14:00 Test Item Value Reference Range Interpretation Comments PTT (test code = PTT) 31.9 s 22.9-35.8 [place] 139731-10-17 10:14:00 Test Item Value Reference Range Interpretation Comments Segs (test code = Segs) 78.7 45.0-75.0 [place] 139731-10-17 10:14:00 Test Item Value Reference Range Interpretation Comments Lymphocytes (test code = Lymphocytes) 13.1 20.0-40.0 [facility] CentralGpjorcfUINYXLNKSP9059-26-61 10:14:00 Test Item Value Reference Range Interpretation Comments Monocytes (test code = Monocytes) 6.8 2.0-12.0 [facility] CentralCtsyauqOISMJLLOSY8239-47-59 10:14:00 Test Item Value Reference Range Interpretation Comments Eosinophils (test code = 0.7 See_Comment [A utomated message] The Eosinophils) system which ge nerated this result tra nsmitted reference range : <=4.0. The reference r arelis was not used to int erpret this result as normal/abnormal . [facility] CentralXqlrtifAXOEWNPONE7160-89-26 10:14:00 Test Item Value Reference Range Interpretation Comments Basophils (test code = 0.7 See_Comment [Aut omated message] The Basophils) system which ge nerated this result tra nsmitted reference range : <=1.0. The reference r arelis was not used to int erpret this result as normal/abnormal . [facility] CentralKdcrdmzTDULAAUADN9312-64-78 10:14:00 Test Item Value Reference Range Interpretation Comments Neutrophils # (test code = Neutrophils 7.7 1.5-8.1 #) [facility] CentralDcetoikWPVOPYRDDD7379-68-09 10:14:00 Test Item Value Reference Range Interpretation Comments Lymphocytes # (test code = Lymphocytes 1.3 1.0-5.5 #) [facility] CentralBdhwhtjQLVLRWVLVJ2576-19-98 10:14:00 Test Item Value Reference Range Interpretation Comments Monocytes # (test code 0.7 See_Comment [Aut omated message] The = Monocytes #) system which generated this result tra nsmitted reference range : <=0.8. The reference r arelis was not used to int erpret this result as normal/abnormal . [facility] CentralPvijunlCWMQOXJTMT2361-92-50 10:14:00 Test Item Value Reference Range Interpretation Comments Eosinophils # (test code 0.1 See_Comment [A utomated message] The = Eosinophils #) system whic h generated this result tra nsmitted reference range : <=0.5. The reference r arelis was not used to int erpret this result as normal/abnormal . [id number] 10:14:00 Test Item Value Reference Range Interpretation Comments Basophils # (test code 0.1 See_Comment [Aut omated message] The = Basophils #) system which generated this result tra nsmitted reference range : <=0.2. The reference r arelis was not used to int erpret this result as normal/abnormal . [facility] [id number] 10:14:00 Test Item Value Reference Range Interpretation Comments PT (test code = PT) 16.8 s 12.0-14.7 [facility] CentralEjzvqueSDTMTVGYXZ7642-73-78 10:14:00 Test Item Value Reference Range Interpretation Comments INR (test code = INR) 1.39 1 0.85-1.17 [facility]2021-10-17 10:14:00 Test Item Value Reference Range Interpretation Comments Glucose Lvl (test code = Glucose Lvl) 107 70-99 [facility]2021-10-17 10:14:00 Test Item Value Reference Range Interpretation Comments BUN (test code = BUN) 13 7-22 [facility]2021-10-17 10:14:00 Test Item Value Reference Range Interpretation Comments Creatinine Lvl (test code = Creatinine 0.67 0.50-1.40 Lvl) [facility]2021-10-17 10:14:00 Test Item Value Reference Range Interpretation Comments Sodium Lvl (test code = Sodium Lvl) 143 135-145 [facility]2021-10-17 10:14:00 Test Item Value Reference Range Interpretation Comments Potassium Lvl (test code = Potassium 3.3 3.5-5.1 Lvl) [facility]2021-10-17 10:14:00 Test Item Value Reference Range Interpretation Comments Chloride Lvl (test code = Chloride Lvl) 111 95-109 [place] 853501-10-17 10:14:00 Test Item Value Reference Range Interpretation Comments CO2 (test code = CO2) 23 24-32 [facility]2021-10-17 10:14:00 Test Item Value Reference Range Interpretation Comments Calcium Lvl (test code = Calcium Lvl) 9.2 8.5-10.5 [facility]2021-10-17 10:14:00 Test Item Value Reference Range Interpretation Comments Total Protein (test code = Total 6.5 6.4-8.4 Protein) [place] 853501-10-17 10:14:00 Test Item Value Reference Range Interpretation Comments Albumin Lvl (test code = Albumin Lvl) 2.9 3.5-5.0 [facility] [id number] 10:14:00 Test Item Value Reference Range Interpretation Comments ALT (test code = ALT) 19 See_Comment [Auto mated message] The system which ge nerated this result transmit sarah reference range : <=65. The reference range was not used to interpr et this result as felicitas l/abnormal. [facility] [id number] 10:14:00 Test Item Value Reference Range Interpretation Comments AST (test code = AST) 13 See_Comment [Auto mated message] The system which ge nerated this result transmit sarah reference range : <=37. The reference range was not used to interpr et this result as felicitas l/abnormal. [facility] [id number] 10:14:00 Test Item Value Reference Range Interpretation Comments Alk Phos (test code = Alk Phos) 102 39-136 [facility] [id number] 10:14:00 Test Item Value Reference Range Interpretation Comments Bili Total (test code = Bili Total) 0.3 0.2-1.3 [facility] [id number] 10:14:00 Test Item Value Reference Range Interpretation Comments AGAP (test code = AGAP) 12.3 10.0-20.0 [facility] [id number] 10:14:00 Test Item Value Reference Range Interpretation Comments B/C Ratio (test code = B/C Ratio) 19 1 6-25 [facility] [id number] 10:14:00 Test Item Value Reference Range Interpretation Comments Globulin (test code = Globulin) 3.6 2.7-4.2 [facility] [id number] 10:14:00 Test Item Value Reference Range Interpretation Comments A/G Ratio (test code = A/G Ratio) 0.8 1 0.7-1.6 [facility] [id number] 10:14:00 Test Item Value Reference Range Interpretation Comments Glucose Lvl (test code = Glucose Lvl) 107 70-99 [facility] [id number] 10:14:00 Test Item Value Reference Range Interpretation Comments BUN (test code = BUN) 13 7-22 [place] 853501-10-17 10:14:00 Test Item Value Reference Range Interpretation Comments Creatinine Lvl (test code = Creatinine 0.67 0.50-1.40 Lvl) [place] 853501-10-17 10:14:00 Test Item Value Reference Range Interpretation Comments Sodium Lvl (test code = Sodium Lvl) 143 135-145 [place] 853501-10-17 10:14:00 Test Item Value Reference Range Interpretation Comments eGFR (test code = eGFR) 91 [place] [address]-10-17 10:14:00 Test Item Value Reference Range Interpretation Comments Potassium Lvl (test code = Potassium 3.3 3.5-5.1 Lvl) [place] 853501-10-17 10:14:00 Test Item Value Reference Range Interpretation Comments Chloride Lvl (test code = Chloride Lvl) 111 95-109 [place] 853501-10-17 10:14:00 Test Item Value Reference Range Interpretation Comments CO2 (test code = CO2) 23 24-32 [place] [address]-10-17 10:14:00 Test Item Value Reference Range Interpretation Comments Calcium Lvl (test code = Calcium Lvl) 9.2 8.5-10.5 [place] 853501-10-17 10:14:00 Test Item Value Reference Range Interpretation Comments Total Protein (test code = Total 6.5 6.4-8.4 Protein) [place] 853501-10-17 10:14:00 Test Item Value Reference Range Interpretation Comments Albumin Lvl (test code = Albumin Lvl) 2.9 3.5-5.0 [place] [address]-10-17 10:14:00 Test Item Value Reference Range Interpretation Comments ALT (test code = ALT) 19 See_Comment [Auto mated message] The system which ge nerated this result transmit sarah reference range : <=65. The reference range was not used to interpr et this result as felicitas l/abnormal. [place] 853501-10-17 10:14:00 Test Item Value Reference Range Interpretation Comments AST (test code = AST) 13 See_Comment [Auto mated message] The system which ge nerated this result transmit sarah reference range : <=37. The reference range was not used to interpr et this result as felicitas l/abnormal. [facility] [id number] 10:14:00 Test Item Value Reference Range Interpretation Comments Alk Phos (test code = Alk Phos) 102 39-136 [place] 853501-10-17 10:14:00 Test Item Value Reference Range Interpretation Comments Bili Total (test code = Bili Total) 0.3 0.2-1.3 [place] 139731-10-17 10:14:00 Test Item Value Reference Range Interpretation Comments WBC (test code = WBC) 9.8 3.7-10.4 [place] 853501-10-17 10:14:00 Test Item Value Reference Range Interpretation Comments AGAP (test code = AGAP) 12.3 10.0-20.0 [place] 853501-10-17 10:14:00 Test Item Value Reference Range Interpretation Comments B/C Ratio (test code = B/C Ratio) 19 1 6-25 [place] 853501-10-17 10:14:00 Test Item Value Reference Range Interpretation Comments Globulin (test code = Globulin) 3.6 2.7-4.2 [place] 853501-10-17 10:14:00 Test Item Value Reference Range Interpretation Comments A/G Ratio (test code = A/G Ratio) 0.8 1 0.7-1.6 [place] 853501-10-17 10:14:00 Test Item Value Reference Range Interpretation Comments eGFR (test code = eGFR) 91 [place] 139731-10-17 10:14:00 Test Item Value Reference Range Interpretation Comments WBC (test code = WBC) 9.8 3.7-10.4 [place] 139731-10-17 10:14:00 Test Item Value Reference Range Interpretation Comments RBC (test code = RBC) 3.87 4.20-5.40 [place] 139731-10-17 10:14:00 Test Item Value Reference Range Interpretation Comments Hgb (test code = Hgb) 11.0 12.0-16.0 [place] 139731-10-17 10:14:00 Test Item Value Reference Range Interpretation Comments Hct (test code = Hct) 33.3 36.0-48.0 [place] 139731-10-17 10:14:00 Test Item Value Reference Range Interpretation Comments MCV (test code = MCV) 86.1 80.0-98.0 [place] 139731-10-17 10:14:00 Test Item Value Reference Range Interpretation Comments RBC (test code = RBC) 3.87 4.20-5.40 [facility] [id number] 10:14:00 Test Item Value Reference Range Interpretation Comments MCH (test code = MCH) 28.4 pg 27.0-31.0 [place] 139731-10-17 10:14:00 Test Item Value Reference Range Interpretation Comments MCHC (test code = MCHC) 33.0 32.0-36.0 [place] 139731-10-17 10:14:00 Test Item Value Reference Range Interpretation Comments RDW (test code = RDW) 15.4 11.5-14.5 [facility] CentralHqilotsUIEREGUMEX7702-06-01 10:14:00 Test Item Value Reference Range Interpretation Comments Platelet (test code = Platelet) 418 133-450 [facility] CentralHkfntanBZLQPMHSPI6775-51-08 10:14:00 Test Item Value Reference Range Interpretation Comments MPV (test code = MPV) 8.1 7.4-10.4 [place] [address]-10-17 10:14:00 Test Item Value Reference Range Interpretation Comments PTT (test code = PTT) 31.9 s 22.9-35.8 [place] 139731-10-17 10:14:00 Test Item Value Reference Range Interpretation Comments Segs (test code = Segs) 78.7 45.0-75.0 [place] 139731-10-17 10:14:00 Test Item Value Reference Range Interpretation Comments Lymphocytes (test code = Lymphocytes) 13.1 20.0-40.0 [place] 139731-10-17 10:14:00 Test Item Value Reference Range Interpretation Comments Monocytes (test code = Monocytes) 6.8 2.0-12.0 [place] 139731-10-17 10:14:00 Test Item Value Reference Range Interpretation Comments Eosinophils (test code = 0.7 See_Comment [A utomated message] The Eosinophils) system which ge nerated this result tra nsmitted reference range : <=4.0. The reference r arelis was not used to int erpret this result as normal/abnormal . [place] 139731-10-17 10:14:00 Test Item Value Reference Range Interpretation Comments Hgb (test code = Hgb) 11.0 12.0-16.0 [place] 139731-10-17 10:14:00 Test Item Value Reference Range Interpretation Comments Basophils (test code = 0.7 See_Comment [Aut omated message] The Basophils) system which ge nerated this result tra nsmitted reference range : <=1.0. The reference r arelis was not used to int erpret this result as normal/abnormal . [place] 139731-10-17 10:14:00 Test Item Value Reference Range Interpretation Comments Neutrophils # (test code = Neutrophils 7.7 1.5-8.1 #) [place] 139731-10-17 10:14:00 Test Item Value Reference Range Interpretation Comments Lymphocytes # (test code = Lymphocytes 1.3 1.0-5.5 #) [place] 139731-10-17 10:14:00 Test Item Value Reference Range Interpretation Comments Monocytes # (test code 0.7 See_Comment [Aut omated message] The = Monocytes #) system which generated this result tra nsmitted reference range : <=0.8. The reference r arelis was not used to int erpret this result as normal/abnormal . [place] 139731-10-17 10:14:00 Test Item Value Reference Range Interpretation Comments Eosinophils # (test code 0.1 See_Comment [A utomated message] The = Eosinophils #) system whic h generated this result tra nsmitted reference range : <=0.5. The reference r arelis was not used to int erpret this result as normal/abnormal . [place] 139731-10-17 10:14:00 Test Item Value Reference Range Interpretation Comments Basophils # (test code 0.1 See_Comment [Aut omated message] The = Basophils #) system which generated this result tra nsmitted reference range : <=0.2. The reference r arelis was not used to int erpret this result as normal/abnormal . [place] 139731-10-17 10:14:00 Test Item Value Reference Range Interpretation Comments PT (test code = PT) 16.8 s 12.0-14.7 [facility] CentralFjchrqkENHPZGDOBC1494-93-15 10:14:00 Test Item Value Reference Range Interpretation Comments INR (test code = INR) 1.39 1 0.85-1.17 [place] 139731-10-17 10:14:00 Test Item Value Reference Range Interpretation Comments Hct (test code = Hct) 33.3 36.0-48.0 [facility] CentralNirahwsVVUTJCQNGZ5352-35-70 10:14:00 Test Item Value Reference Range Interpretation Comments MCV (test code = MCV) 86.1 80.0-98.0 [facility] CentralMcpxinhTXKQHXGSNV4210-00-54 10:14:00 Test Item Value Reference Range Interpretation Comments MCH (test code = MCH) 28.4 pg 27.0-31.0 [facility] CentralLixsdhqCQXOUREBPJ2884-39-54 10:14:00 Test Item Value Reference Range Interpretation Comments MCHC (test code = MCHC) 33.0 32.0-36.0 [facility] Ce[id number] 10:14:00 Test Item Value Reference Range Interpretation Comments RDW (test code = RDW) 15.4 11.5-14.5 [facility] CentralNuxoeqpRXRNJQZQWZ9166-25-79 10:14:00 Test Item Value Reference Range Interpretation Comments Platelet (test code = Platelet) 418 133-450 [facility] CentralRgawjnhIRUDBAVYJF1758-93-36 10:14:00 Test Item Value Reference Range Interpretation Comments MPV (test code = MPV) 8.1 7.4-10.4 [place] 139731-10-17 10:14:00 Test Item Value Reference Range Interpretation Comments PTT (test code = PTT) 31.9 s 22.9-35.8 [place] 139731-10-17 10:14:00 Test Item Value Reference Range Interpretation Comments Segs (test code = Segs) 78.7 45.0-75.0 [facility] CentralKvcexpsUQJKGBZUIF4158-36-08 10:14:00 Test Item Value Reference Range Interpretation Comments Lymphocytes (test code = Lymphocytes) 13.1 20.0-40.0 [place] 139731-10-17 10:14:00 Test Item Value Reference Range Interpretation Comments Monocytes (test code = Monocytes) 6.8 2.0-12.0 [place] 139731-10-17 10:14:00 Test Item Value Reference Range Interpretation Comments Eosinophils (test code = 0.7 See_Comment [A utomated message] The Eosinophils) system which ge nerated this result tra nsmitted reference range : <=4.0. The reference r arelis was not used to int erpret this result as normal/abnormal . [place] 139731-10-17 10:14:00 Test Item Value Reference Range Interpretation Comments Basophils (test code = 0.7 See_Comment [Aut omated message] The Basophils) system which ge nerated this result tra nsmitted reference range : <=1.0. The reference r arelis was not used to int erpret this result as normal/abnormal . [place] 139731-10-17 10:14:00 Test Item Value Reference Range Interpretation Comments Neutrophils # (test code = Neutrophils 7.7 1.5-8.1 #) [place] 139731-10-17 10:14:00 Test Item Value Reference Range Interpretation Comments Lymphocytes # (test code = Lymphocytes 1.3 1.0-5.5 #) [place] 139731-10-17 10:14:00 Test Item Value Reference Range Interpretation Comments Monocytes # (test code 0.7 See_Comment [Aut omated message] The = Monocytes #) system which generated this result tra nsmitted reference range : <=0.8. The reference r arelis was not used to int erpret this result as normal/abnormal . [place] 139731-10-17 10:14:00 Test Item Value Reference Range Interpretation Comments Eosinophils # (test code 0.1 See_Comment [A utomated message] The = Eosinophils #) system whic h generated this result tra nsmitted reference range : <=0.5. The reference r arelis was not used to int erpret this result as normal/abnormal . [place] 139731-10-17 10:14:00 Test Item Value Reference Range Interpretation Comments Basophils # (test code 0.1 See_Comment [Aut omated message] The = Basophils #) system which generated this result tra nsmitted reference range : <=0.2. The reference r arelis was not used to int erpret this result as normal/abnormal . [place] 139731-10-17 10:14:00 Test Item Value Reference Range Interpretation Comments PT (test code = PT) 16.8 s 12.0-14.7 [place] 139731-10-17 10:14:00 Test Item Value Reference Range Interpretation Comments INR (test code = INR) 1.39 1 0.85-1.17 [place] 853501-10-17 10:14:00 Test Item Value Reference Range Interpretation Comments Glucose Lvl (test code = Glucose Lvl) 107 70-99 [place] 853501-10-17 10:14:00 Test Item Value Reference Range Interpretation Comments BUN (test code = BUN) 13 7-22 [place] 853501-10-17 10:14:00 Test Item Value Reference Range Interpretation Comments Creatinine Lvl (test code = Creatinine 0.67 0.50-1.40 Lvl) [place] 853501-10-17 10:14:00 Test Item Value Reference Range Interpretation Comments Sodium Lvl (test code = Sodium Lvl) 143 135-145 [place] 853501-10-17 10:14:00 Test Item Value Reference Range Interpretation Comments Potassium Lvl (test code = Potassium 3.3 3.5-5.1 Lvl) [place] 853501-10-17 10:14:00 Test Item Value Reference Range Interpretation Comments Chloride Lvl (test code = Chloride Lvl) 111 95-109 [place] 853501-10-17 10:14:00 Test Item Value Reference Range Interpretation Comments CO2 (test code = CO2) 23 24-32 [place] 853501-10-17 10:14:00 Test Item Value Reference Range Interpretation Comments Calcium Lvl (test code = Calcium Lvl) 9.2 8.5-10.5 [place] 853501-10-17 10:14:00 Test Item Value Reference Range Interpretation Comments Total Protein (test code = Total 6.5 6.4-8.4 Protein) [place] 853501-10-17 10:14:00 Test Item Value Reference Range Interpretation Comments Albumin Lvl (test code = Albumin Lvl) 2.9 3.5-5.0 [place] 853501-10-17 10:14:00 Test Item Value Reference Range Interpretation Comments ALT (test code = ALT) 19 See_Comment [Auto mated message] The system which ge nerated this result transmit sarah reference range : <=65. The reference range was not used to interpr et this result as felicitas l/abnormal. [place] 853501-10-17 10:14:00 Test Item Value Reference Range Interpretation Comments AST (test code = AST) 13 See_Comment [Auto mated message] The system which ge nerated this result transmit sarah reference range : <=37. The reference range was not used to interpr et this result as felicitas l/abnormal. [facility] [id number] 10:14:00 Test Item Value Reference Range Interpretation Comments Alk Phos (test code = Alk Phos) 102 39-136 [place] 853501-10-17 10:14:00 Test Item Value Reference Range Interpretation Comments Bili Total (test code = Bili Total) 0.3 0.2-1.3 [place] [address]-10-17 10:14:00 Test Item Value Reference Range Interpretation Comments AGAP (test code = AGAP) 12.3 10.0-20.0 [place] [address]-10-17 10:14:00 Test Item Value Reference Range Interpretation Comments B/C Ratio (test code = B/C Ratio) 19 1 6-25 [place] [address]-10-17 10:14:00 Test Item Value Reference Range Interpretation Comments Globulin (test code = Globulin) 3.6 2.7-4.2 [facility] [id number] 10:14:00 Test Item Value Reference Range Interpretation Comments A/G Ratio (test code = A/G Ratio) 0.8 1 0.7-1.6 [place] [address]-10-17 10:14:00 Test Item Value Reference Range Interpretation Comments eGFR (test code = eGFR) 91 [place] 139731-10-17 10:14:00 Test Item Value Reference Range Interpretation Comments WBC (test code = WBC) 9.8 3.7-10.4 [place] 139731-10-17 10:14:00 Test Item Value Reference Range Interpretation Comments RBC (test code = RBC) 3.87 4.20-5.40 [place] 139731-10-17 10:14:00 Test Item Value Reference Range Interpretation Comments Hgb (test code = Hgb) 11.0 12.0-16.0 [place] 139731-10-17 10:14:00 Test Item Value Reference Range Interpretation Comments Hct (test code = Hct) 33.3 36.0-48.0 [place] 139731-10-17 10:14:00 Test Item Value Reference Range Interpretation Comments MCV (test code = MCV) 86.1 80.0-98.0 [place] 139731-10-17 10:14:00 Test Item Value Reference Range Interpretation Comments MCH (test code = MCH) 28.4 pg 27.0-31.0 [facility] [id number] 10:14:00 Test Item Value Reference Range Interpretation Comments MCHC (test code = MCHC) 33.0 32.0-36.0 [facility] CentralMeyptnoYONHKNSOBG6220-38-73 10:14:00 Test Item Value Reference Range Interpretation Comments RDW (test code = RDW) 15.4 11.5-14.5 [place] 139731-10-17 10:14:00 Test Item Value Reference Range Interpretation Comments Platelet (test code = Platelet) 418 133-450 [facility] CentralStfjotnENFTBCVJSQ7091-37-45 10:14:00 Test Item Value Reference Range Interpretation Comments MPV (test code = MPV) 8.1 7.4-10.4 [place] 139731-10-17 10:14:00 Test Item Value Reference Range Interpretation Comments PTT (test code = PTT) 31.9 s 22.9-35.8 [place] 139731-10-17 10:14:00 Test Item Value Reference Range Interpretation Comments Segs (test code = Segs) 78.7 45.0-75.0 [place] [address]-10-17 10:14:00 Test Item Value Reference Range Interpretation Comments Lymphocytes (test code = Lymphocytes) 13.1 20.0-40.0 [place] 139731-10-17 10:14:00 Test Item Value Reference Range Interpretation Comments Monocytes (test code = Monocytes) 6.8 2.0-12.0 [place] 139731-10-17 10:14:00 Test Item Value Reference Range Interpretation Comments Eosinophils (test code = 0.7 See_Comment [A utomated message] The Eosinophils) system which ge nerated this result tra nsmitted reference range : <=4.0. The reference r arelis was not used to int erpret this result as normal/abnormal . [place] 139731-10-17 10:14:00 Test Item Value Reference Range Interpretation Comments Basophils (test code = 0.7 See_Comment [Aut omated message] The Basophils) system which ge nerated this result tra nsmitted reference range : <=1.0. The reference r arelis was not used to int erpret this result as normal/abnormal . [place] 139731-10-17 10:14:00 Test Item Value Reference Range Interpretation Comments Neutrophils # (test code = Neutrophils 7.7 1.5-8.1 #) [place] 139731-10-17 10:14:00 Test Item Value Reference Range Interpretation Comments Lymphocytes # (test code = Lymphocytes 1.3 1.0-5.5 #) [place] 139731-10-17 10:14:00 Test Item Value Reference Range Interpretation Comments Monocytes # (test code 0.7 See_Comment [Aut omated message] The = Monocytes #) system which generated this result tra nsmitted reference range : <=0.8. The reference r arelis was not used to int erpret this result as normal/abnormal . [place] 139731-10-17 10:14:00 Test Item Value Reference Range Interpretation Comments Eosinophils # (test code 0.1 See_Comment [A utomated message] The = Eosinophils #) system whic h generated this result tra nsmitted reference range : <=0.5. The reference r arelis was not used to int erpret this result as normal/abnormal . [place] 139731-10-17 10:14:00 Test Item Value Reference Range Interpretation Comments Basophils # (test code 0.1 See_Comment [Aut omated message] The = Basophils #) system which generated this result tra nsmitted reference range : <=0.2. The reference r arelis was not used to int erpret this result as normal/abnormal . [place] 139731-10-17 10:14:00 Test Item Value Reference Range Interpretation Comments PT (test code = PT) 16.8 s 12.0-14.7 [place] 139731-10-17 10:14:00 Test Item Value Reference Range Interpretation Comments INR (test code = INR) 1.39 1 0.85-1.17 [place] 853501-10-17 10:14:00 Test Item Value Reference Range Interpretation Comments Glucose Lvl (test code = Glucose Lvl) 107 70-99 [place] 853501-10-17 10:14:00 Test Item Value Reference Range Interpretation Comments BUN (test code = BUN) 13 7-22 [place] 853501-10-17 10:14:00 Test Item Value Reference Range Interpretation Comments Creatinine Lvl (test code = Creatinine 0.67 0.50-1.40 Lvl) [place] 853501-10-17 10:14:00 Test Item Value Reference Range Interpretation Comments Sodium Lvl (test code = Sodium Lvl) 143 135-145 [place] 853501-10-17 10:14:00 Test Item Value Reference Range Interpretation Comments Potassium Lvl (test code = Potassium 3.3 3.5-5.1 Lvl) [place] 853501-10-17 10:14:00 Test Item Value Reference Range Interpretation Comments Chloride Lvl (test code = Chloride Lvl) 111 95-109 [place] 853501-10-17 10:14:00 Test Item Value Reference Range Interpretation Comments CO2 (test code = CO2) 23 24-32 [place] 853501-10-17 10:14:00 Test Item Value Reference Range Interpretation Comments Calcium Lvl (test code = Calcium Lvl) 9.2 8.5-10.5 [place] 853501-10-17 10:14:00 Test Item Value Reference Range Interpretation Comments Total Protein (test code = Total 6.5 6.4-8.4 Protein) [place] 853501-10-17 10:14:00 Test Item Value Reference Range Interpretation Comments Albumin Lvl (test code = Albumin Lvl) 2.9 3.5-5.0 [place] 853501-10-17 10:14:00 Test Item Value Reference Range Interpretation Comments ALT (test code = ALT) 19 See_Comment [Auto mated message] The system which ge nerated this result transmit sarah reference range : <=65. The reference range was not used to interpr et this result as felicitas l/abnormal. [facility] [id number] 10:14:00 Test Item Value Reference Range Interpretation Comments AST (test code = AST) 13 See_Comment [Auto mated message] The system which ge nerated this result transmit sarah reference range : <=37. The reference range was not used to interpr et this result as felicitas l/abnormal. [place] 853501-10-17 10:14:00 Test Item Value Reference Range Interpretation Comments Alk Phos (test code = Alk Phos) 102 39-136 [facility] [id number] 10:14:00 Test Item Value Reference Range Interpretation Comments Bili Total (test code = Bili Total) 0.3 0.2-1.3 [place] 853501-10-17 10:14:00 Test Item Value Reference Range Interpretation Comments AGAP (test code = AGAP) 12.3 10.0-20.0 [facility] [id number] 10:14:00 Test Item Value Reference Range Interpretation Comments B/C Ratio (test code = B/C Ratio) 19 1 6-25 [facility] [id number] 10:14:00 Test Item Value Reference Range Interpretation Comments Globulin (test code = Globulin) 3.6 2.7-4.2 [facility] [id number] 10:14:00 Test Item Value Reference Range Interpretation Comments A/G Ratio (test code = A/G Ratio) 0.8 1 0.7-1.6 [facility] [id number] 10:14:00 Test Item Value Reference Range Interpretation Comments eGFR (test code = eGFR) 91 [place] 139731-10-17 10:14:00 Test Item Value Reference Range Interpretation Comments WBC (test code = WBC) 9.8 3.7-10.4 [place] 139731-10-17 10:14:00 Test Item Value Reference Range Interpretation Comments RBC (test code = RBC) 3.87 4.20-5.40 [place] 139731-10-17 10:14:00 Test Item Value Reference Range Interpretation Comments Hgb (test code = Hgb) 11.0 12.0-16.0 [id number] 10:14:00 Test Item Value Reference Range Interpretation Comments Hct (test code = Hct) 33.3 36.0-48.0 [facility] CentralJwafwowZJPLZHQFSA4014-61-00 10:14:00 Test Item Value Reference Range Interpretation Comments MCV (test code = MCV) 86.1 80.0-98.0 [place] 139731-10-17 10:14:00 Test Item Value Reference Range Interpretation Comments MCH (test code = MCH) 28.4 pg 27.0-31.0 [facility] CentralFvljsllMPBLWTMDYA3523-65-30 10:14:00 Test Item Value Reference Range Interpretation Comments MCHC (test code = MCHC) 33.0 32.0-36.0 [facility] CentralAczyvkxGSBIVYRZIT0410-60-87 10:14:00 Test Item Value Reference Range Interpretation Comments RDW (test code = RDW) 15.4 11.5-14.5 [place] 139731-10-17 10:14:00 Test Item Value Reference Range Interpretation Comments Platelet (test code = Platelet) 418 133-450 [facility] CentralBqptoueIRMPAUSKHN9227-51-00 10:14:00 Test Item Value Reference Range Interpretation Comments MPV (test code = MPV) 8.1 7.4-10.4 [place] 139731-10-17 10:14:00 Test Item Value Reference Range Interpretation Comments PTT (test code = PTT) 31.9 s 22.9-35.8 [place] 139731-10-17 10:14:00 Test Item Value Reference Range Interpretation Comments Segs (test code = Segs) 78.7 45.0-75.0 [place] 139731-10-17 10:14:00 Test Item Value Reference Range Interpretation Comments Lymphocytes (test code = Lymphocytes) 13.1 20.0-40.0 [place] 139731-10-17 10:14:00 Test Item Value Reference Range Interpretation Comments Monocytes (test code = Monocytes) 6.8 2.0-12.0 [place] 139731-10-17 10:14:00 Test Item Value Reference Range Interpretation Comments Eosinophils (test code = 0.7 See_Comment [A utomated message] The Eosinophils) system which ge nerated this result tra nsmitted reference range : <=4.0. The reference r arelis was not used to int erpret this result as normal/abnormal . [facility] [id number] 10:14:00 Test Item Value Reference Range Interpretation Comments Basophils (test code = 0.7 See_Comment [Aut omated message] The Basophils) system which ge nerated this result tra nsmitted reference range : <=1.0. The reference r arelis was not used to int erpret this result as normal/abnormal . [facility] CentralNibrtioDHGUIWVDLC0869-90-26 10:14:00 Test Item Value Reference Range Interpretation Comments Neutrophils # (test code = Neutrophils 7.7 1.5-8.1 #) [facility] CentralEwgiqsgRDXDADCVOK9699-10-57 10:14:00 Test Item Value Reference Range Interpretation Comments Lymphocytes # (test code = Lymphocytes 1.3 1.0-5.5 #) [facility] CentralQkyshumUJDHXOHXZA0513-04-39 10:14:00 Test Item Value Reference Range Interpretation Comments Monocytes # (test code 0.7 See_Comment [Aut omated message] The = Monocytes #) system which generated this result tra nsmitted reference range : <=0.8. The reference r arelis was not used to int erpret this result as normal/abnormal . [facility] CentralXoulwxkISTLFHNBSY7162-63-22 10:14:00 Test Item Value Reference Range Interpretation Comments Eosinophils # (test code 0.1 See_Comment [A utomated message] The = Eosinophils #) system wh h generated this result tra nsmitted reference range : <=0.5. The reference r arelis was not used to int erpret this result as normal/abnormal . [facility] CentralMjsedfaRWPEXRTBLD1610-25-75 10:14:00 Test Item Value Reference Range Interpretation Comments Basophils # (test code 0.1 See_Comment [Aut omated message] The = Basophils #) system which generated this result tra nsmitted reference range : <=0.2. The reference r arelis was not used to int erpret this result as normal/abnormal . [facility] CentralBizwnvlDINRGASUMD4153-11-63 10:14:00 Test Item Value Reference Range Interpretation Comments PT (test code = PT) 16.8 s 12.0-14.7 [place] 139731-10-17 10:14:00 Test Item Value Reference Range Interpretation Comments INR (test code = INR) 1.39 1 0.85-1.17 [place] 853501-10-17 10:14:00 Test Item Value Reference Range Interpretation Comments Glucose Lvl (test code = Glucose Lvl) 107 70-99 [place] 853501-10-17 10:14:00 Test Item Value Reference Range Interpretation Comments BUN (test code = BUN) 13 7-22 [place] 853501-10-17 10:14:00 Test Item Value Reference Range Interpretation Comments Creatinine Lvl (test code = Creatinine 0.67 0.50-1.40 Lvl) [place] [address]-10-17 10:14:00 Test Item Value Reference Range Interpretation Comments Sodium Lvl (test code = Sodium Lvl) 143 135-145 [place] 853501-10-17 10:14:00 Test Item Value Reference Range Interpretation Comments Potassium Lvl (test code = Potassium 3.3 3.5-5.1 Lvl) [place] 853501-10-17 10:14:00 Test Item Value Reference Range Interpretation Comments Chloride Lvl (test code = Chloride Lvl) 111 95-109 [place] 853501-10-17 10:14:00 Test Item Value Reference Range Interpretation Comments CO2 (test code = CO2) 23 24-32 [place] [address]-10-17 10:14:00 Test Item Value Reference Range Interpretation Comments Calcium Lvl (test code = Calcium Lvl) 9.2 8.5-10.5 [place] 853501-10-17 10:14:00 Test Item Value Reference Range Interpretation Comments Total Protein (test code = Total 6.5 6.4-8.4 Protein) [place] 853501-10-17 10:14:00 Test Item Value Reference Range Interpretation Comments Albumin Lvl (test code = Albumin Lvl) 2.9 3.5-5.0 [place] 853501-10-17 10:14:00 Test Item Value Reference Range Interpretation Comments ALT (test code = ALT) 19 See_Comment [Auto mated message] The system which ge nerated this result transmit sarah reference range : <=65. The reference range was not used to interpr et this result as felicitas l/abnormal. [place] 853501-10-17 10:14:00 Test Item Value Reference Range Interpretation Comments AST (test code = AST) 13 See_Comment [Auto mated message] The system which ge nerated this result transmit sarah reference range : <=37. The reference range was not used to interpr et this result as felicitas l/abnormal. [facility]2021-10-17 10:14:00 Test Item Value Reference Range Interpretation Comments Alk Phos (test code = Alk Phos) 102 39-136 [place] 853501-10-17 10:14:00 Test Item Value Reference Range Interpretation Comments Bili Total (test code = Bili Total) 0.3 0.2-1.3 [place] 853501-10-17 10:14:00 Test Item Value Reference Range Interpretation Comments AGAP (test code = AGAP) 12.3 10.0-20.0 [place] 853501-10-17 10:14:00 Test Item Value Reference Range Interpretation Comments B/C Ratio (test code = B/C Ratio) 19 1 6-25 [place] 853501-10-17 10:14:00 Test Item Value Reference Range Interpretation Comments Globulin (test code = Globulin) 3.6 2.7-4.2 [place] 853501-10-17 10:14:00 Test Item Value Reference Range Interpretation Comments A/G Ratio (test code = A/G Ratio) 0.8 1 0.7-1.6 [place] 853501-10-17 10:14:00 Test Item Value Reference Range Interpretation Comments eGFR (test code = eGFR) 91 [place] 139731-10-17 10:14:00 Test Item Value Reference Range Interpretation Comments WBC (test code = WBC) 9.8 3.7-10.4 [place] 139731-10-17 10:14:00 Test Item Value Reference Range Interpretation Comments RBC (test code = RBC) 3.87 4.20-5.40 [place] 139731-10-17 10:14:00 Test Item Value Reference Range Interpretation Comments Hgb (test code = Hgb) 11.0 12.0-16.0 [place] [address]-10-17 10:14:00 Test Item Value Reference Range Interpretation Comments Hct (test code = Hct) 33.3 36.0-48.0 [place] 139731-10-17 10:14:00 Test Item Value Reference Range Interpretation Comments MCV (test code = MCV) 86.1 80.0-98.0 [place] 139731-10-17 10:14:00 Test Item Value Reference Range Interpretation Comments MCH (test code = MCH) 28.4 pg 27.0-31.0 [place] 139731-10-17 10:14:00 Test Item Value Reference Range Interpretation Comments MCHC (test code = MCHC) 33.0 32.0-36.0 [place] 139731-10-17 10:14:00 Test Item Value Reference Range Interpretation Comments RDW (test code = RDW) 15.4 11.5-14.5 [place] 139731-10-17 10:14:00 Test Item Value Reference Range Interpretation Comments Platelet (test code = Platelet) 418 133-450 [facility] CentralCnujtdiBQPMYKFHNG5635-73-10 10:14:00 Test Item Value Reference Range Interpretation Comments MPV (test code = MPV) 8.1 7.4-10.4 [place] 139731-10-17 10:14:00 Test Item Value Reference Range Interpretation Comments PTT (test code = PTT) 31.9 s 22.9-35.8 [place] [address]-10-17 10:14:00 Test Item Value Reference Range Interpretation Comments Segs (test code = Segs) 78.7 45.0-75.0 [place] 139731-10-17 10:14:00 Test Item Value Reference Range Interpretation Comments Lymphocytes (test code = Lymphocytes) 13.1 20.0-40.0 [place] [address]-10-17 10:14:00 Test Item Value Reference Range Interpretation Comments Monocytes (test code = Monocytes) 6.8 2.0-12.0 [place] 139731-10-17 10:14:00 Test Item Value Reference Range Interpretation Comments Eosinophils (test code = 0.7 See_Comment [A utomated message] The Eosinophils) system which ge nerated this result tra nsmitted reference range : <=4.0. The reference r arelis was not used to int erpret this result as normal/abnormal . [facility] CentralZdrqrzsTCBTGTKZRI3177-11-85 10:14:00 Test Item Value Reference Range Interpretation Comments Basophils (test code = 0.7 See_Comment [Aut omated message] The Basophils) system which ge nerated this result tra nsmitted reference range : <=1.0. The reference r arelis was not used to int erpret this result as normal/abnormal . [place] 139731-10-17 10:14:00 Test Item Value Reference Range Interpretation Comments Neutrophils # (test code = Neutrophils 7.7 1.5-8.1 #) [facility] CentralBnefzbiSATYMTZMLF5878-37-64 10:14:00 Test Item Value Reference Range Interpretation Comments Lymphocytes # (test code = Lymphocytes 1.3 1.0-5.5 #) [place] 139731-10-17 10:14:00 Test Item Value Reference Range Interpretation Comments Monocytes # (test code 0.7 See_Comment [Aut omated message] The = Monocytes #) system which generated this result tra nsmitted reference range : <=0.8. The reference r arelis was not used to int erpret this result as normal/abnormal . [facility] CentralEakjajzCICVHXJKVN7532-61-15 10:14:00 Test Item Value Reference Range Interpretation Comments Eosinophils # (test code 0.1 See_Comment [A utomated message] The = Eosinophils #) system whic h generated this result tra nsmitted reference range : <=0.5. The reference r arelis was not used to int erpret this result as normal/abnormal . [facility] CentralUccvimiDPCMSTCUGE2669-14-27 10:14:00 Test Item Value Reference Range Interpretation Comments Basophils # (test code 0.1 See_Comment [Aut omated message] The = Basophils #) system which generated this result tra nsmitted reference range : <=0.2. The reference r arelis was not used to int erpret this result as normal/abnormal . [facility] CentralHlfozzzTAXISNKLKT9616-71-37 10:14:00 Test Item Value Reference Range Interpretation Comments PT (test code = PT) 16.8 s 12.0-14.7 [place] 139731-10-17 10:14:00 Test Item Value Reference Range Interpretation Comments INR (test code = INR) 1.39 1 0.85-1.17 [place] 853501-10-17 10:14:00 Test Item Value Reference Range Interpretation Comments Glucose Lvl (test code = Glucose Lvl) 107 70-99 [place] 853501-10-17 10:14:00 Test Item Value Reference Range Interpretation Comments BUN (test code = BUN) 13 7-22 [place] 853501-10-17 10:14:00 Test Item Value Reference Range Interpretation Comments Creatinine Lvl (test code = Creatinine 0.67 0.50-1.40 Lvl) [place] 853501-10-17 10:14:00 Test Item Value Reference Range Interpretation Comments Sodium Lvl (test code = Sodium Lvl) 143 135-145 [place] 853501-10-17 10:14:00 Test Item Value Reference Range Interpretation Comments Potassium Lvl (test code = Potassium 3.3 3.5-5.1 Lvl) [place] 853501-10-17 10:14:00 Test Item Value Reference Range Interpretation Comments Chloride Lvl (test code = Chloride Lvl) 111 95-109 [place] 853501-10-17 10:14:00 Test Item Value Reference Range Interpretation Comments CO2 (test code = CO2) 23 24-32 [place] [address]3501-10-17 10:14:00 Test Item Value Reference Range Interpretation Comments Calcium Lvl (test code = Calcium Lvl) 9.2 8.5-10.5 [place] 853501-10-17 10:14:00 Test Item Value Reference Range Interpretation Comments Total Protein (test code = Total 6.5 6.4-8.4 Protein) [place] 853501-10-17 10:14:00 Test Item Value Reference Range Interpretation Comments Albumin Lvl (test code = Albumin Lvl) 2.9 3.5-5.0 [place] 853501-10-17 10:14:00 Test Item Value Reference Range Interpretation Comments ALT (test code = ALT) 19 See_Comment [Auto mated message] The system which ge nerated this result transmit sarah reference range : <=65. The reference range was not used to interpr et this result as felicitas l/abnormal. [place] 853501-10-17 10:14:00 Test Item Value Reference Range Interpretation Comments AST (test code = AST) 13 See_Comment [Auto mated message] The system which ge nerated this result transmit sarah reference range : <=37. The reference range was not used to interpr et this result as felicitas l/abnormal. [facility] [id number] 10:14:00 Test Item Value Reference Range Interpretation Comments Alk Phos (test code = Alk Phos) 102 39-136 [facility] [id number] 10:14:00 Test Item Value Reference Range Interpretation Comments Bili Total (test code = Bili Total) 0.3 0.2-1.3 [facility]2021-10-17 10:14:00 Test Item Value Reference Range Interpretation Comments AGAP (test code = AGAP) 12.3 10.0-20.0 [place] 853501-10-17 10:14:00 Test Item Value Reference Range Interpretation Comments B/C Ratio (test code = B/C Ratio) 19 1 6-25 [facility] [id number] 10:14:00 Test Item Value Reference Range Interpretation Comments Globulin (test code = Globulin) 3.6 2.7-4.2 [facility] [id number] 10:14:00 Test Item Value Reference Range Interpretation Comments A/G Ratio (test code = A/G Ratio) 0.8 1 0.7-1.6 [place] [address]3501-10-17 10:14:00 Test Item Value Reference Range Interpretation Comments eGFR (test code = eGFR) 91 [facility] CentralBcievqzDWJSXIZAYB1306-82-36 10:14:00 Test Item Value Reference Range Interpretation Comments WBC (test code = WBC) 9.8 3.7-10.4 [place] 139731-10-17 10:14:00 Test Item Value Reference Range Interpretation Comments RBC (test code = RBC) 3.87 4.20-5.40 [place] 139731-10-17 10:14:00 Test Item Value Reference Range Interpretation Comments Hgb (test code = Hgb) 11.0 12.0-16.0 [place] [address]-10-17 10:14:00 Test Item Value Reference Range Interpretation Comments Hct (test code = Hct) 33.3 36.0-48.0 [place] 139731-10-17 10:14:00 Test Item Value Reference Range Interpretation Comments MCV (test code = MCV) 86.1 80.0-98.0 [place] 139731-10-17 10:14:00 Test Item Value Reference Range Interpretation Comments MCH (test code = MCH) 28.4 pg 27.0-31.0 [place] 139731-10-17 10:14:00 Test Item Value Reference Range Interpretation Comments MCHC (test code = MCHC) 33.0 32.0-36.0 [place] 139731-10-17 10:14:00 Test Item Value Reference Range Interpretation Comments RDW (test code = RDW) 15.4 11.5-14.5 [place] 139731-10-17 10:14:00 Test Item Value Reference Range Interpretation Comments Platelet (test code = Platelet) 418 133-450 [facility] CentralYrviccyUBWPJMXIFY3584-13-30 10:14:00 Test Item Value Reference Range Interpretation Comments MPV (test code = MPV) 8.1 7.4-10.4 [place] 139731-10-17 10:14:00 Test Item Value Reference Range Interpretation Comments PTT (test code = PTT) 31.9 s 22.9-35.8 [facility] CentralRrniavpZUCVKBLODF9036-44-48 10:14:00 Test Item Value Reference Range Interpretation Comments Segs (test code = Segs) 78.7 45.0-75.0 [facility] CentralDakxxphEOUFXYTQZI4206-21-85 10:14:00 Test Item Value Reference Range Interpretation Comments Lymphocytes (test code = Lymphocytes) 13.1 20.0-40.0 [place] 139731-10-17 10:14:00 Test Item Value Reference Range Interpretation Comments Monocytes (test code = Monocytes) 6.8 2.0-12.0 [place] 139731-10-17 10:14:00 Test Item Value Reference Range Interpretation Comments Eosinophils (test code = 0.7 See_Comment [A utomated message] The Eosinophils) system which ge nerated this result tra nsmitted reference range : <=4.0. The reference r arelis was not used to int erpret this result as normal/abnormal . [facility] CentralIaklyrsZBRLFLUZXR2283-74-90 10:14:00 Test Item Value Reference Range Interpretation Comments Basophils (test code = 0.7 See_Comment [Aut omated message] The Basophils) system which ge nerated this result tra nsmitted reference range : <=1.0. The reference r arelis was not used to int erpret this result as normal/abnormal . [facility] CentralMwwfcwtSFDEGSSFYI7619-38-16 10:14:00 Test Item Value Reference Range Interpretation Comments Neutrophils # (test code = Neutrophils 7.7 1.5-8.1 #) [place] 139731-10-17 10:14:00 Test Item Value Reference Range Interpretation Comments Lymphocytes # (test code = Lymphocytes 1.3 1.0-5.5 #) [facility] CentralGmfflaeZMTCUABGLE6967-92-58 10:14:00 Test Item Value Reference Range Interpretation Comments Monocytes # (test code 0.7 See_Comment [Aut omated message] The = Monocytes #) system which generated this result tra nsmitted reference range : <=0.8. The reference r arelis was not used to int erpret this result as normal/abnormal . [facility] CentralSieyjfsNPDVJUBSVX2723-95-58 10:14:00 Test Item Value Reference Range Interpretation Comments Eosinophils # (test code 0.1 See_Comment [A utomated message] The = Eosinophils #) system whic h generated this result tra nsmitted reference range : <=0.5. The reference r arelis was not used to int erpret this result as normal/abnormal . [facility] CentralAtnlvdjBZLMHTXETW4047-68-98 10:14:00 Test Item Value Reference Range Interpretation Comments Basophils # (test code 0.1 See_Comment [Aut omated message] The = Basophils #) system which generated this result tra nsmitted reference range : <=0.2. The reference r arelis was not used to int erpret this result as normal/abnormal . [facility] CentralUtiihbvBFKAVFRCWB1521-05-43 10:14:00 Test Item Value Reference Range Interpretation Comments PT (test code = PT) 16.8 s 12.0-14.7 [place] 139731-10-17 10:14:00 Test Item Value Reference Range Interpretation Comments INR (test code = INR) 1.39 1 0.85-1.17 [facility]2021-10-17 10:14:00 Test Item Value Reference Range Interpretation Comments Glucose Lvl (test code = Glucose Lvl) 107 70-99 [place] 853501-10-17 10:14:00 Test Item Value Reference Range Interpretation Comments BUN (test code = BUN) 13 7-22 [place] 853501-10-17 10:14:00 Test Item Value Reference Range Interpretation Comments Creatinine Lvl (test code = Creatinine 0.67 0.50-1.40 Lvl) [place] 853501-10-17 10:14:00 Test Item Value Reference Range Interpretation Comments Sodium Lvl (test code = Sodium Lvl) 143 135-145 [place] 853501-10-17 10:14:00 Test Item Value Reference Range Interpretation Comments Potassium Lvl (test code = Potassium 3.3 3.5-5.1 Lvl) [place] 853501-10-17 10:14:00 Test Item Value Reference Range Interpretation Comments Chloride Lvl (test code = Chloride Lvl) 111 95-109 [place] 853501-10-17 10:14:00 Test Item Value Reference Range Interpretation Comments CO2 (test code = CO2) 23 24-32 [place] 853501-10-17 10:14:00 Test Item Value Reference Range Interpretation Comments Calcium Lvl (test code = Calcium Lvl) 9.2 8.5-10.5 [place] 853501-10-17 10:14:00 Test Item Value Reference Range Interpretation Comments Total Protein (test code = Total 6.5 6.4-8.4 Protein) [place] 853501-10-17 10:14:00 Test Item Value Reference Range Interpretation Comments Albumin Lvl (test code = Albumin Lvl) 2.9 3.5-5.0 [place] 853501-10-17 10:14:00 Test Item Value Reference Range Interpretation Comments ALT (test code = ALT) 19 See_Comment [Auto mated message] The system which ge nerated this result transmit sarah reference range : <=65. The reference range was not used to interpr et this result as felicitas l/abnormal. [place] 853501-10-17 10:14:00 Test Item Value Reference Range Interpretation Comments AST (test code = AST) 13 See_Comment [Auto mated message] The system which ge nerated this result transmit sarah reference range : <=37. The reference range was not used to interpr et this result as felicitas l/abnormal. [place] 853501-10-17 10:14:00 Test Item Value Reference Range Interpretation Comments Alk Phos (test code = Alk Phos) 102 39-136 [place] 853501-10-17 10:14:00 Test Item Value Reference Range Interpretation Comments Bili Total (test code = Bili Total) 0.3 0.2-1.3 [place] 853501-10-17 10:14:00 Test Item Value Reference Range Interpretation Comments AGAP (test code = AGAP) 12.3 10.0-20.0 [place] 853501-10-17 10:14:00 Test Item Value Reference Range Interpretation Comments B/C Ratio (test code = B/C Ratio) 19 1 6-25 [place] [address]-10-17 10:14:00 Test Item Value Reference Range Interpretation Comments Globulin (test code = Globulin) 3.6 2.7-4.2 [place] 853501-10-17 10:14:00 Test Item Value Reference Range Interpretation Comments A/G Ratio (test code = A/G Ratio) 0.8 1 0.7-1.6 [place] 853501-10-17 10:14:00 Test Item Value Reference Range Interpretation Comments eGFR (test code = eGFR) 91 [place] 139731-10-17 10:14:00 Test Item Value Reference Range Interpretation Comments WBC (test code = WBC) 9.8 3.7-10.4 [place] 139731-10-17 10:14:00 Test Item Value Reference Range Interpretation Comments RBC (test code = RBC) 3.87 4.20-5.40 [place] [address]-10-17 10:14:00 Test Item Value Reference Range Interpretation Comments Hgb (test code = Hgb) 11.0 12.0-16.0 [place] [address]-10-17 10:14:00 Test Item Value Reference Range Interpretation Comments Hct (test code = Hct) 33.3 36.0-48.0 [place] [address]-10-17 10:14:00 Test Item Value Reference Range Interpretation Comments MCV (test code = MCV) 86.1 80.0-98.0 [place] 139731-10-17 10:14:00 Test Item Value Reference Range Interpretation Comments MCH (test code = MCH) 28.4 pg 27.0-31.0 [place] 139731-10-17 10:14:00 Test Item Value Reference Range Interpretation Comments MCHC (test code = MCHC) 33.0 32.0-36.0 [place] 139731-10-17 10:14:00 Test Item Value Reference Range Interpretation Comments RDW (test code = RDW) 15.4 11.5-14.5 [place] 139731-10-17 10:14:00 Test Item Value Reference Range Interpretation Comments Platelet (test code = Platelet) 418 133-450 [facility]ygt[facility]CM[facility]ZQTQD0277-12-00 10:14:00 Test Item Value Reference Range Interpretation Comments MPV (test code = MPV) 8.1 7.4-10.4 [place] 139731-10-17 10:14:00 Test Item Value Reference Range Interpretation Comments PTT (test code = PTT) 31.9 s 22.9-35.8 [place] 139731-10-17 10:14:00 Test Item Value Reference Range Interpretation Comments Segs (test code = Segs) 78.7 45.0-75.0 [place] 139731-10-17 10:14:00 Test Item Value Reference Range Interpretation Comments Lymphocytes (test code = Lymphocytes) 13.1 20.0-40.0 [place] 139731-10-17 10:14:00 Test Item Value Reference Range Interpretation Comments Monocytes (test code = Monocytes) 6.8 2.0-12.0 [place] 139731-10-17 10:14:00 Test Item Value Reference Range Interpretation Comments Eosinophils (test code = 0.7 See_Comment [A utomated message] The Eosinophils) system which ge nerated this result tra nsmitted reference range : <=4.0. The reference r arelis was not used to int erpret this result as normal/abnormal . [place] 139731-10-17 10:14:00 Test Item Value Reference Range Interpretation Comments Basophils (test code = 0.7 See_Comment [Aut omated message] The Basophils) system which ge nerated this result tra nsmitted reference range : <=1.0. The reference r arelis was not used to int erpret this result as normal/abnormal . [place] 139731-10-17 10:14:00 Test Item Value Reference Range Interpretation Comments Neutrophils # (test code = Neutrophils 7.7 1.5-8.1 #) [facility]AcmvnnnHBYIQLDLKX8697-99-94 10:14:00 Test Item Value Reference Range Interpretation Comments Lymphocytes # (test code = Lymphocytes 1.3 1.0-5.5 #) [place] 139731-10-17 10:14:00 Test Item Value Reference Range Interpretation Comments Monocytes # (test code 0.7 See_Comment [Aut omated message] The = Monocytes #) system which generated this result tra nsmitted reference range : <=0.8. The reference r arelis was not used to int erpret this result as normal/abnormal . [facility] CentralXvnytekMXWEOHHJKE0694-19-69 10:14:00 Test Item Value Reference Range Interpretation Comments Eosinophils # (test code 0.1 See_Comment [A utomated message] The = Eosinophils #) system whic h generated this result tra nsmitted reference range : <=0.5. The reference r arelis was not used to int erpret this result as normal/abnormal . [facility] CentralFfwgxguCTWOUMKADS2175-87-82 10:14:00 Test Item Value Reference Range Interpretation Comments Basophils # (test code 0.1 See_Comment [Aut omated message] The = Basophils #) system which generated this result tra nsmitted reference range : <=0.2. The reference r arelis was not used to int erpret this result as normal/abnormal . [facility] CentralNoucifpMQZOURXYOP2366-33-24 10:14:00 Test Item Value Reference Range Interpretation Comments PT (test code = PT) 16.8 s 12.0-14.7 [place] 139731-10-17 10:14:00 Test Item Value Reference Range Interpretation Comments INR (test code = INR) 1.39 1 0.85-1.17 [place] 853501-10-17 10:14:00 Test Item Value Reference Range Interpretation Comments Glucose Lvl (test code = Glucose Lvl) 107 70-99 [place] 853501-10-17 10:14:00 Test Item Value Reference Range Interpretation Comments BUN (test code = BUN) 13 7-22 [place] 853501-10-17 10:14:00 Test Item Value Reference Range Interpretation Comments Creatinine Lvl (test code = Creatinine 0.67 0.50-1.40 Lvl) [place] 853501-10-17 10:14:00 Test Item Value Reference Range Interpretation Comments Sodium Lvl (test code = Sodium Lvl) 143 135-145 [place] 853501-10-17 10:14:00 Test Item Value Reference Range Interpretation Comments Potassium Lvl (test code = Potassium 3.3 3.5-5.1 Lvl) [place] 853501-10-17 10:14:00 Test Item Value Reference Range Interpretation Comments Chloride Lvl (test code = Chloride Lvl) 111 95-109 [place] 853501-10-17 10:14:00 Test Item Value Reference Range Interpretation Comments CO2 (test code = CO2) 23 24-32 [place] 853501-10-17 10:14:00 Test Item Value Reference Range Interpretation Comments Calcium Lvl (test code = Calcium Lvl) 9.2 8.5-10.5 [place] 853501-10-17 10:14:00 Test Item Value Reference Range Interpretation Comments Total Protein (test code = Total 6.5 6.4-8.4 Protein) [place] 853501-10-17 10:14:00 Test Item Value Reference Range Interpretation Comments Albumin Lvl (test code = Albumin Lvl) 2.9 3.5-5.0 [place] 853501-10-17 10:14:00 Test Item Value Reference Range Interpretation Comments ALT (test code = ALT) 19 See_Comment [Auto mated message] The system which ge nerated this result transmit sarah reference range : <=65. The reference range was not used to interpr et this result as felicitas l/abnormal. [place] 853501-10-17 10:14:00 Test Item Value Reference Range Interpretation Comments AST (test code = AST) 13 See_Comment [Auto mated message] The system which ge nerated this result transmit sarah reference range : <=37. The reference range was not used to interpr et this result as felicitas l/abnormal. [facility]2021-10-17 10:14:00 Test Item Value Reference Range Interpretation Comments Alk Phos (test code = Alk Phos) 102 39-136 [place] 853501-10-17 10:14:00 Test Item Value Reference Range Interpretation Comments Bili Total (test code = Bili Total) 0.3 0.2-1.3 [place] 853501-10-17 10:14:00 Test Item Value Reference Range Interpretation Comments AGAP (test code = AGAP) 12.3 10.0-20.0 [place] 853501-10-17 10:14:00 Test Item Value Reference Range Interpretation Comments B/C Ratio (test code = B/C Ratio) 19 1 6-25 [place] 853501-10-17 10:14:00 Test Item Value Reference Range Interpretation Comments Globulin (test code = Globulin) 3.6 2.7-4.2 [place] 853501-10-17 10:14:00 Test Item Value Reference Range Interpretation Comments A/G Ratio (test code = A/G Ratio) 0.8 1 0.7-1.6 [place] 853501-10-17 10:14:00 Test Item Value Reference Range Interpretation Comments eGFR (test code = eGFR) 91 [facility] CentralKtfimjtDVMSVYPBPK6332-03-23 10:14:00 Test Item Value Reference Range Interpretation Comments WBC (test code = WBC) 9.8 3.7-10.4 [place] 139731-10-17 10:14:00 Test Item Value Reference Range Interpretation Comments RBC (test code = RBC) 3.87 4.20-5.40 [place] 139731-10-17 10:14:00 Test Item Value Reference Range Interpretation Comments Hgb (test code = Hgb) 11.0 12.0-16.0 [place] 139731-10-17 10:14:00 Test Item Value Reference Range Interpretation Comments Hct (test code = Hct) 33.3 36.0-48.0 [place] 139731-10-17 10:14:00 Test Item Value Reference Range Interpretation Comments MCV (test code = MCV) 86.1 80.0-98.0 [place] 139731-10-17 10:14:00 Test Item Value Reference Range Interpretation Comments MCH (test code = MCH) 28.4 pg 27.0-31.0 [place] 139731-10-17 10:14:00 Test Item Value Reference Range Interpretation Comments MCHC (test code = MCHC) 33.0 32.0-36.0 [place] 139731-10-17 10:14:00 Test Item Value Reference Range Interpretation Comments RDW (test code = RDW) 15.4 11.5-14.5 [place] 139731-10-17 10:14:00 Test Item Value Reference Range Interpretation Comments Platelet (test code = Platelet) 418 133-450 [facility] CentralUtgqdxhVOTEKLUQSM2123-41-00 10:14:00 Test Item Value Reference Range Interpretation Comments MPV (test code = MPV) 8.1 7.4-10.4 [place] 139731-10-17 10:14:00 Test Item Value Reference Range Interpretation Comments PTT (test code = PTT) 31.9 s 22.9-35.8 [place] 139731-10-17 10:14:00 Test Item Value Reference Range Interpretation Comments Segs (test code = Segs) 78.7 45.0-75.0 [place] [address]-10-17 10:14:00 Test Item Value Reference Range Interpretation Comments Lymphocytes (test code = Lymphocytes) 13.1 20.0-40.0 [place] 139731-10-17 10:14:00 Test Item Value Reference Range Interpretation Comments Monocytes (test code = Monocytes) 6.8 2.0-12.0 [place] 139731-10-17 10:14:00 Test Item Value Reference Range Interpretation Comments Eosinophils (test code = 0.7 See_Comment [A utomated message] The Eosinophils) system which ge nerated this result tra nsmitted reference range : <=4.0. The reference r arelis was not used to int erpret this result as normal/abnormal . [place] [address]-10-17 10:14:00 Test Item Value Reference Range Interpretation Comments Basophils (test code = 0.7 See_Comment [Aut omated message] The Basophils) system which ge nerated this result tra nsmitted reference range : <=1.0. The reference r arelis was not used to int erpret this result as normal/abnormal . [place] 139731-10-17 10:14:00 Test Item Value Reference Range Interpretation Comments Neutrophils # (test code = Neutrophils 7.7 1.5-8.1 #) [place] 139731-10-17 10:14:00 Test Item Value Reference Range Interpretation Comments Lymphocytes # (test code = Lymphocytes 1.3 1.0-5.5 #) [place] 139731-10-17 10:14:00 Test Item Value Reference Range Interpretation Comments Monocytes # (test code 0.7 See_Comment [Aut omated message] The = Monocytes #) system which generated this result tra nsmitted reference range : <=0.8. The reference r arelis was not used to int erpret this result as normal/abnormal . [place] 139731-10-17 10:14:00 Test Item Value Reference Range Interpretation Comments Eosinophils # (test code 0.1 See_Comment [A utomated message] The = Eosinophils #) system whic h generated this result tra nsmitted reference range : <=0.5. The reference r arelis was not used to int erpret this result as normal/abnormal . [place] 139731-10-17 10:14:00 Test Item Value Reference Range Interpretation Comments Basophils # (test code 0.1 See_Comment [Aut omated message] The = Basophils #) system which generated this result tra nsmitted reference range : <=0.2. The reference r arelis was not used to int erpret this result as normal/abnormal . [place] 139731-10-17 10:14:00 Test Item Value Reference Range Interpretation Comments PT (test code = PT) 16.8 s 12.0-14.7 [place] 139731-10-17 10:14:00 Test Item Value Reference Range Interpretation Comments INR (test code = INR) 1.39 1 0.85-1.17 [place] 853501-10-17 10:14:00 Test Item Value Reference Range Interpretation Comments Glucose Lvl (test code = Glucose Lvl) 107 70-99 [place] 853501-10-17 10:14:00 Test Item Value Reference Range Interpretation Comments BUN (test code = BUN) 13 7-22 [place] 853501-10-17 10:14:00 Test Item Value Reference Range Interpretation Comments Creatinine Lvl (test code = Creatinine 0.67 0.50-1.40 Lvl) [place] 853501-10-17 10:14:00 Test Item Value Reference Range Interpretation Comments Sodium Lvl (test code = Sodium Lvl) 143 135-145 [place] 853501-10-17 10:14:00 Test Item Value Reference Range Interpretation Comments Potassium Lvl (test code = Potassium 3.3 3.5-5.1 Lvl) [place] 853501-10-17 10:14:00 Test Item Value Reference Range Interpretation Comments Chloride Lvl (test code = Chloride Lvl) 111 95-109 [place] 853501-10-17 10:14:00 Test Item Value Reference Range Interpretation Comments CO2 (test code = CO2) 23 24-32 [place] 853501-10-17 10:14:00 Test Item Value Reference Range Interpretation Comments Calcium Lvl (test code = Calcium Lvl) 9.2 8.5-10.5 [place] [address]-10-17 10:14:00 Test Item Value Reference Range Interpretation Comments Total Protein (test code = Total 6.5 6.4-8.4 Protein) [place] 853501-10-17 10:14:00 Test Item Value Reference Range Interpretation Comments Albumin Lvl (test code = Albumin Lvl) 2.9 3.5-5.0 [place] 853501-10-17 10:14:00 Test Item Value Reference Range Interpretation Comments ALT (test code = ALT) 19 See_Comment [Auto mated message] The system which ge nerated this result transmit sarah reference range : <=65. The reference range was not used to interpr et this result as felicitas l/abnormal. [place] 853501-10-17 10:14:00 Test Item Value Reference Range Interpretation Comments AST (test code = AST) 13 See_Comment [Auto mated message] The system which ge nerated this result transmit sarah reference range : <=37. The reference range was not used to interpr et this result as felicitas l/abnormal. [facility] JGQNG2639-21-46 10:14:00 Test Item Value Reference Range Interpretation Comments Alk Phos (test code = Alk Phos) 102 39-136 [place] 853501-10-17 10:14:00 Test Item Value Reference Range Interpretation Comments Bili Total (test code = Bili Total) 0.3 0.2-1.3 [place] 853501-10-17 10:14:00 Test Item Value Reference Range Interpretation Comments AGAP (test code = AGAP) 12.3 10.0-20.0 [place] [address]3501-10-17 10:14:00 Test Item Value Reference Range Interpretation Comments B/C Ratio (test code = B/C Ratio) 19 1 6-25 [place] 853501-10-17 10:14:00 Test Item Value Reference Range Interpretation Comments Globulin (test code = Globulin) 3.6 2.7-4.2 [place] 853501-10-17 10:14:00 Test Item Value Reference Range Interpretation Comments A/G Ratio (test code = A/G Ratio) 0.8 1 0.7-1.6 [place] [address]3501-10-17 10:14:00 Test Item Value Reference Range Interpretation Comments eGFR (test code = eGFR) 91 [place] 139731-10-17 10:14:00 Test Item Value Reference Range Interpretation Comments WBC (test code = WBC) 9.8 3.7-10.4 [place] [address]-10-17 10:14:00 Test Item Value Reference Range Interpretation Comments RBC (test code = RBC) 3.87 4.20-5.40 [place] [address]-10-17 10:14:00 Test Item Value Reference Range Interpretation Comments Hgb (test code = Hgb) 11.0 12.0-16.0 [place] [address]-10-17 10:14:00 Test Item Value Reference Range Interpretation Comments Hct (test code = Hct) 33.3 36.0-48.0 [place] 139731-10-17 10:14:00 Test Item Value Reference Range Interpretation Comments MCV (test code = MCV) 86.1 80.0-98.0 [place] [address]-10-17 10:14:00 Test Item Value Reference Range Interpretation Comments MCH (test code = MCH) 28.4 pg 27.0-31.0 [facility] CentralFjtbbbdJIRDFZKYJE1045-74-02 10:14:00 Test Item Value Reference Range Interpretation Comments MCHC (test code = MCHC) 33.0 32.0-36.0 [facility] CentralMeueptsSIXWXDECJM5698-30-43 10:14:00 Test Item Value Reference Range Interpretation Comments RDW (test code = RDW) 15.4 11.5-14.5 [facility] CentralDfebqpeCAWGIYGQCW3085-76-25 10:14:00 Test Item Value Reference Range Interpretation Comments Platelet (test code = Platelet) 418 133-450 [facility] CentralHznhntoOCDEISYLKN7552-95-11 10:14:00 Test Item Value Reference Range Interpretation Comments MPV (test code = MPV) 8.1 7.4-10.4 [place] 139731-10-17 10:14:00 Test Item Value Reference Range Interpretation Comments PTT (test code = PTT) 31.9 s 22.9-35.8 [facility] CentralKrpfznaSZHFINJIFG3510-05-40 10:14:00 Test Item Value Reference Range Interpretation Comments Segs (test code = Segs) 78.7 45.0-75.0 [facility] CentralSdzreznQIQDMVXZUM4930-40-82 10:14:00 Test Item Value Reference Range Interpretation Comments Lymphocytes (test code = Lymphocytes) 13.1 20.0-40.0 [facility] CentralEjlqdfaQILXPQRSFW8376-21-47 10:14:00 Test Item Value Reference Range Interpretation Comments Monocytes (test code = Monocytes) 6.8 2.0-12.0 [place] 139731-10-17 10:14:00 Test Item Value Reference Range Interpretation Comments Eosinophils (test code = 0.7 See_Comment [A utomated message] The Eosinophils) system which ge nerated this result tra nsmitted reference range : <=4.0. The reference r arelis was not used to int erpret this result as normal/abnormal . [place] 139731-10-17 10:14:00 Test Item Value Reference Range Interpretation Comments Basophils (test code = 0.7 See_Comment [Aut omated message] The Basophils) system which ge nerated this result tra nsmitted reference range : <=1.0. The reference r arelis was not used to int erpret this result as normal/abnormal . [place] 139731-10-17 10:14:00 Test Item Value Reference Range Interpretation Comments Neutrophils # (test code = Neutrophils 7.7 1.5-8.1 #) [place] 139731-10-17 10:14:00 Test Item Value Reference Range Interpretation Comments Lymphocytes # (test code = Lymphocytes 1.3 1.0-5.5 #) [place] 139731-10-17 10:14:00 Test Item Value Reference Range Interpretation Comments Monocytes # (test code 0.7 See_Comment [Aut omated message] The = Monocytes #) system which generated this result tra nsmitted reference range : <=0.8. The reference r arelis was not used to int erpret this result as normal/abnormal . [place] 139731-10-17 10:14:00 Test Item Value Reference Range Interpretation Comments Eosinophils # (test code 0.1 See_Comment [A utomated message] The = Eosinophils #) system whic h generated this result tra nsmitted reference range : <=0.5. The reference r arelis was not used to int erpret this result as normal/abnormal . [facility] CentralVvjbhddITQABZBPNA6122-17-78 10:14:00 Test Item Value Reference Range Interpretation Comments Basophils # (test code 0.1 See_Comment [Aut omated message] The = Basophils #) system which generated this result tra nsmitted reference range : <=0.2. The reference r arelis was not used to int erpret this result as normal/abnormal . [place] 139731-10-17 10:14:00 Test Item Value Reference Range Interpretation Comments PT (test code = PT) 16.8 s 12.0-14.7 [place] 139731-10-17 10:14:00 Test Item Value Reference Range Interpretation Comments INR (test code = INR) 1.39 1 0.85-1.17 [place] [address]3501-10-17 10:14:00 Test Item Value Reference Range Interpretation Comments Glucose Lvl (test code = Glucose Lvl) 107 70-99 [place] 853501-10-17 10:14:00 Test Item Value Reference Range Interpretation Comments BUN (test code = BUN) 13 7-22 [place] 853501-10-17 10:14:00 Test Item Value Reference Range Interpretation Comments Creatinine Lvl (test code = Creatinine 0.67 0.50-1.40 Lvl) [place] [address]3501-10-17 10:14:00 Test Item Value Reference Range Interpretation Comments Sodium Lvl (test code = Sodium Lvl) 143 135-145 [place] 853501-10-17 10:14:00 Test Item Value Reference Range Interpretation Comments Potassium Lvl (test code = Potassium 3.3 3.5-5.1 Lvl) [place] 853501-10-17 10:14:00 Test Item Value Reference Range Interpretation Comments Chloride Lvl (test code = Chloride Lvl) 111 95-109 [place] 853501-10-17 10:14:00 Test Item Value Reference Range Interpretation Comments CO2 (test code = CO2) 23 24-32 [place] [address]3501-10-17 10:14:00 Test Item Value Reference Range Interpretation Comments Calcium Lvl (test code = Calcium Lvl) 9.2 8.5-10.5 [place] [address]3501-10-17 10:14:00 Test Item Value Reference Range Interpretation Comments Total Protein (test code = Total 6.5 6.4-8.4 Protein) [place] 853501-10-17 10:14:00 Test Item Value Reference Range Interpretation Comments Albumin Lvl (test code = Albumin Lvl) 2.9 3.5-5.0 [place] [address]3501-10-17 10:14:00 Test Item Value Reference Range Interpretation Comments ALT (test code = ALT) 19 See_Comment [Auto mated message] The system which [employer] nerated this result transmit sarah reference range : <=65. The reference range was not used to interpr et this result as felicitas l/abnormal. [place] [address]3501-10-17 10:14:00 Test Item Value Reference Range Interpretation Comments AST (test code = AST) 13 See_Comment [Auto mated message] The system which [employer] nerated this result transmit sarah reference range : <=37. The reference range was not used to interpr et this result as felicitas l/abnormal. [place] 853501-10-17 10:14:00 Test Item Value Reference Range Interpretation Comments Alk Phos (test code = Alk Phos) 102 39-136 [place] 853501-10-17 10:14:00 Test Item Value Reference Range Interpretation Comments Bili Total (test code = Bili Total) 0.3 0.2-1.3 [place] [address]3501-10-17 10:14:00 Test Item Value Reference Range Interpretation Comments AGAP (test code = AGAP) 12.3 10.0-20.0 [place] [address]3501-10-17 10:14:00 Test Item Value Reference Range Interpretation Comments B/C Ratio (test code = B/C Ratio) 19 1 6-25 [place] [address]-10-17 10:14:00 Test Item Value Reference Range Interpretation Comments Globulin (test code = Globulin) 3.6 2.7-4.2 [place] 853501-10-17 10:14:00 Test Item Value Reference Range Interpretation Comments A/G Ratio (test code = A/G Ratio) 0.8 1 0.7-1.6 [place] 853501-10-17 10:14:00 Test Item Value Reference Range Interpretation Comments eGFR (test code = eGFR) 91 [place] 139731-10-17 10:14:00 Test Item Value Reference Range Interpretation Comments WBC (test code = WBC) 9.8 3.7-10.4 [place] [address]-10-17 10:14:00 Test Item Value Reference Range Interpretation Comments RBC (test code = RBC) 3.87 4.20-5.40 [place] 139731-10-17 10:14:00 Test Item Value Reference Range Interpretation Comments Hgb (test code = Hgb) 11.0 12.0-16.0 [place] [address]-10-17 10:14:00 Test Item Value Reference Range Interpretation Comments Hct (test code = Hct) 33.3 36.0-48.0 [place] [address]-10-17 10:14:00 Test Item Value Reference Range Interpretation Comments MCV (test code = MCV) 86.1 80.0-98.0 [place] [address]-10-17 10:14:00 Test Item Value Reference Range Interpretation Comments MCH (test code = MCH) 28.4 pg 27.0-31.0 [place] [address]-10-17 10:14:00 Test Item Value Reference Range Interpretation Comments MCHC (test code = MCHC) 33.0 32.0-36.0 [place] 139731-10-17 10:14:00 Test Item Value Reference Range Interpretation Comments RDW (test code = RDW) 15.4 11.5-14.5 [place] 139731-10-17 10:14:00 Test Item Value Reference Range Interpretation Comments Platelet (test code = Platelet) 418 133-450 [facility] CentralUkvsorzAHJHEFCXCQ7480-24-29 10:14:00 Test Item Value Reference Range Interpretation Comments MPV (test code = MPV) 8.1 7.4-10.4 [place] 139731-10-17 10:14:00 Test Item Value Reference Range Interpretation Comments PTT (test code = PTT) 31.9 s 22.9-35.8 [place] 139731-10-17 10:14:00 Test Item Value Reference Range Interpretation Comments Segs (test code = Segs) 78.7 45.0-75.0 [place] 139731-10-17 10:14:00 Test Item Value Reference Range Interpretation Comments Lymphocytes (test code = Lymphocytes) 13.1 20.0-40.0 [place] 139731-10-17 10:14:00 Test Item Value Reference Range Interpretation Comments Monocytes (test code = Monocytes) 6.8 2.0-12.0 [place] 139731-10-17 10:14:00 Test Item Value Reference Range Interpretation Comments Eosinophils (test code = 0.7 See_Comment [A utomated message] The Eosinophils) system which ge nerated this result tra nsmitted reference range : <=4.0. The reference r arelis was not used to int erpret this result as normal/abnormal . [facility]VfxclluVYUZOIDGJY5226-30-32 10:14:00 Test Item Value Reference Range Interpretation Comments Basophils (test code = 0.7 See_Comment [Aut omated message] The Basophils) system which ge nerated this result tra nsmitted reference range : <=1.0. The reference r arelis was not used to int erpret this result as normal/abnormal . [place] 139731-10-17 10:14:00 Test Item Value Reference Range Interpretation Comments Neutrophils # (test code = Neutrophils 7.7 1.5-8.1 #) [facility] CentralPxwfjgnQAIZVFCHYZ7817-89-05 10:14:00 Test Item Value Reference Range Interpretation Comments Lymphocytes # (test code = Lymphocytes 1.3 1.0-5.5 #) [facility] CentralFcxygubPOHAYBVJNI6386-19-41 10:14:00 Test Item Value Reference Range Interpretation Comments Monocytes # (test code 0.7 See_Comment [Aut omated message] The = Monocytes #) system which generated this result tra nsmitted reference range : <=0.8. The reference r arelis was not used to int erpret this result as normal/abnormal . [facility] CentralKjllbbiACIKKRVJWL5507-51-61 10:14:00 Test Item Value Reference Range Interpretation Comments Eosinophils # (test code 0.1 See_Comment [A utomated message] The = Eosinophils #) system whic h generated this result tra nsmitted reference range : <=0.5. The reference r arelis was not used to int erpret this result as normal/abnormal . [facility] CentralCkegxrqTKOILRZOBI2541-91-97 10:14:00 Test Item Value Reference Range Interpretation Comments Basophils # (test code 0.1 See_Comment [Aut omated message] The = Basophils #) system which generated this result tra nsmitted reference range : <=0.2. The reference r arelis was not used to int erpret this result as normal/abnormal . [facility] CentralVujmycbIEEZCCDUJC4042-53-89 10:14:00 Test Item Value Reference Range Interpretation Comments PT (test code = PT) 16.8 s 12.0-14.7 [place] 139731-10-17 10:14:00 Test Item Value Reference Range Interpretation Comments INR (test code = INR) 1.39 1 0.85-1.17 [place] 853501-10-17 10:14:00 Test Item Value Reference Range Interpretation Comments Glucose Lvl (test code = Glucose Lvl) 107 70-99 [facility]2021-10-17 10:14:00 Test Item Value Reference Range Interpretation Comments BUN (test code = BUN) 13 7-22 [place] 853501-10-17 10:14:00 Test Item Value Reference Range Interpretation Comments Creatinine Lvl (test code = Creatinine 0.67 0.50-1.40 Lvl) [place] 853501-10-17 10:14:00 Test Item Value Reference Range Interpretation Comments Sodium Lvl (test code = Sodium Lvl) 143 135-145 [place] 853501-10-17 10:14:00 Test Item Value Reference Range Interpretation Comments Potassium Lvl (test code = Potassium 3.3 3.5-5.1 Lvl) [place] 853501-10-17 10:14:00 Test Item Value Reference Range Interpretation Comments Chloride Lvl (test code = Chloride Lvl) 111 95-109 [facility] [id number] 10:14:00 Test Item Value Reference Range Interpretation Comments CO2 (test code = CO2) 23 24-32 [facility] [id number] 10:14:00 Test Item Value Reference Range Interpretation Comments Calcium Lvl (test code = Calcium Lvl) 9.2 8.5-10.5 [facility] [id number] 10:14:00 Test Item Value Reference Range Interpretation Comments Total Protein (test code = Total 6.5 6.4-8.4 Protein) [place] 853501-10-17 10:14:00 Test Item Value Reference Range Interpretation Comments Albumin Lvl (test code = Albumin Lvl) 2.9 3.5-5.0 [facility] [id number] 10:14:00 Test Item Value Reference Range Interpretation Comments ALT (test code = ALT) 19 See_Comment [Auto mated message] The system which ge nerated this result transmit sarah reference range : <=65. The reference range was not used to interpr et this result as felicitas l/abnormal. [facility] [id number] 10:14:00 Test Item Value Reference Range Interpretation Comments AST (test code = AST) 13 See_Comment [Auto mated message] The system which ge nerated this result transmit sarah reference range : <=37. The reference range was not used to interpr et this result as felicitas l/abnormal. [facility] [id number] 10:14:00 Test Item Value Reference Range Interpretation Comments Alk Phos (test code = Alk Phos) 102 39-136 [facility] [id number] 10:14:00 Test Item Value Reference Range Interpretation Comments Bili Total (test code = Bili Total) 0.3 0.2-1.3 [place] 853501-10-17 10:14:00 Test Item Value Reference Range Interpretation Comments AGAP (test code = AGAP) 12.3 10.0-20.0 [facility]2021-10-17 10:14:00 Test Item Value Reference Range Interpretation Comments B/C Ratio (test code = B/C Ratio) 19 1 6-25 [place] 853501-10-17 10:14:00 Test Item Value Reference Range Interpretation Comments Globulin (test code = Globulin) 3.6 2.7-4.2 [place] 853501-10-17 10:14:00 Test Item Value Reference Range Interpretation Comments A/G Ratio (test code = A/G Ratio) 0.8 1 0.7-1.6 [place] 853501-10-17 10:14:00 Test Item Value Reference Range Interpretation Comments eGFR (test code = eGFR) 91 [facility] CentralZgawcmmVBKZDZULGS3411-95-13 10:14:00 Test Item Value Reference Range Interpretation Comments WBC (test code = WBC) 9.8 3.7-10.4 [facility] CentralJmleirlPAPNDYMGGC8631-59-51 10:14:00 Test Item Value Reference Range Interpretation Comments RBC (test code = RBC) 3.87 4.20-5.40 [facility] CentralPgudbjrWHWOQVFMIS7440-65-53 10:14:00 Test Item Value Reference Range Interpretation Comments Hgb (test code = Hgb) 11.0 12.0-16.0 [facility] CentralOyteyclCLCZXDZQJG5017-05-86 10:14:00 Test Item Value Reference Range Interpretation Comments Hct (test code = Hct) 33.3 36.0-48.0 [place] 139731-10-17 10:14:00 Test Item Value Reference Range Interpretation Comments MCV (test code = MCV) 86.1 80.0-98.0 [place] 139731-10-17 10:14:00 Test Item Value Reference Range Interpretation Comments MCH (test code = MCH) 28.4 pg 27.0-31.0 [place] 139731-10-17 10:14:00 Test Item Value Reference Range Interpretation Comments MCHC (test code = MCHC) 33.0 32.0-36.0 [place] 139731-10-17 10:14:00 Test Item Value Reference Range Interpretation Comments RDW (test code = RDW) 15.4 11.5-14.5 [place] 139731-10-17 10:14:00 Test Item Value Reference Range Interpretation Comments Platelet (test code = Platelet) 418 133-450 [place] 139731-10-17 10:14:00 Test Item Value Reference Range Interpretation Comments MPV (test code = MPV) 8.1 7.4-10.4 [place] 139731-10-17 10:14:00 Test Item Value Reference Range Interpretation Comments PTT (test code = PTT) 31.9 s 22.9-35.8 [place] 139731-10-17 10:14:00 Test Item Value Reference Range Interpretation Comments Segs (test code = Segs) 78.7 45.0-75.0 [place] 139731-10-17 10:14:00 Test Item Value Reference Range Interpretation Comments Lymphocytes (test code = Lymphocytes) 13.1 20.0-40.0 [place] 139731-10-17 10:14:00 Test Item Value Reference Range Interpretation Comments Monocytes (test code = Monocytes) 6.8 2.0-12.0 [place] 139731-10-17 10:14:00 Test Item Value Reference Range Interpretation Comments Eosinophils (test code = 0.7 See_Comment [A utomated message] The Eosinophils) system which ge nerated this result tra nsmitted reference range : <=4.0. The reference r arelis was not used to int erpret this result as normal/abnormal . [place] 139731-10-17 10:14:00 Test Item Value Reference Range Interpretation Comments Basophils (test code = 0.7 See_Comment [Aut omated message] The Basophils) system which ge nerated this result tra nsmitted reference range : <=1.0. The reference r arelis was not used to int erpret this result as normal/abnormal . [place] 139731-10-17 10:14:00 Test Item Value Reference Range Interpretation Comments Neutrophils # (test code = Neutrophils 7.7 1.5-8.1 #) [place] 139731-10-17 10:14:00 Test Item Value Reference Range Interpretation Comments Lymphocytes # (test code = Lymphocytes 1.3 1.0-5.5 #) [place] 139731-10-17 10:14:00 Test Item Value Reference Range Interpretation Comments Monocytes # (test code 0.7 See_Comment [Aut omated message] The = Monocytes #) system which generated this result tra nsmitted reference range : <=0.8. The reference r arelis was not used to int erpret this result as normal/abnormal . [place] 139731-10-17 10:14:00 Test Item Value Reference Range Interpretation Comments Eosinophils # (test code 0.1 See_Comment [A utomated message] The = Eosinophils #) system whic h generated this result tra nsmitted reference range : <=0.5. The reference r arelis was not used to int erpret this result as normal/abnormal . [place] 139731-10-17 10:14:00 Test Item Value Reference Range Interpretation Comments Basophils # (test code 0.1 See_Comment [Aut omated message] The = Basophils #) system which generated this result tra nsmitted reference range : <=0.2. The reference r arelis was not used to int erpret this result as normal/abnormal . [place] 139731-10-17 10:14:00 Test Item Value Reference Range Interpretation Comments PT (test code = PT) 16.8 s 12.0-14.7 [place] 139731-10-17 10:14:00 Test Item Value Reference Range Interpretation Comments INR (test code = INR) 1.39 1 0.85-1.17 [place] 853501-10-17 10:14:00 Test Item Value Reference Range Interpretation Comments Glucose Lvl (test code = Glucose Lvl) 107 70-99 [place] 853501-10-17 10:14:00 Test Item Value Reference Range Interpretation Comments BUN (test code = BUN) 13 7-22 [place] 853501-10-17 10:14:00 Test Item Value Reference Range Interpretation Comments Creatinine Lvl (test code = Creatinine 0.67 0.50-1.40 Lvl) [place] 853501-10-17 10:14:00 Test Item Value Reference Range Interpretation Comments Sodium Lvl (test code = Sodium Lvl) 143 135-145 [facility] [id number] 10:14:00 Test Item Value Reference Range Interpretation Comments Potassium Lvl (test code = Potassium 3.3 3.5-5.1 Lvl) [facility]WhoisB[facility] [id number] 10:14:00 Test Item Value Reference Range Interpretation Comments Chloride Lvl (test code = Chloride Lvl) 111 95-109 [facility] [employer] [id number] 10:14:00 Test Item Value Reference Range Interpretation Comments CO2 (test code = CO2) 23 24-32 [facility] [id number] 10:14:00 Test Item Value Reference Range Interpretation Comments Calcium Lvl (test code = Calcium Lvl) 9.2 8.5-10.5 [facility] [employer] [id number] 10:14:00 Test Item Value Reference Range Interpretation Comments Total Protein (test code = Total 6.5 6.4-8.4 Protein) [facility] [id number] 10:14:00 Test Item Value Reference Range Interpretation Comments Albumin Lvl (test code = Albumin Lvl) 2.9 3.5-5.0 [facility] [id number] 10:14:00 Test Item Value Reference Range Interpretation Comments ALT (test code = ALT) 19 See_Comment [Auto mated message] The system which ge nerated this result transmit sarah reference range : <=65. The reference range was not used to interpr et this result as felicitas l/abnormal. [facility] [employer] [id number] 10:14:00 Test Item Value Reference Range Interpretation Comments AST (test code = AST) 13 See_Comment [Auto mated message] The system which ge nerated this result transmit sarah reference range : <=37. The reference range was not used to interpr et this result as felicitas l/abnormal. [facility] [employer] [id number] 10:14:00 Test Item Value Reference Range Interpretation Comments Alk Phos (test code = Alk Phos) 102 39-136 [facility] [id number] 10:14:00 Test Item Value Reference Range Interpretation Comments Bili Total (test code = Bili Total) 0.3 0.2-1.3 [facility] [id number] 10:14:00 Test Item Value Reference Range Interpretation Comments AGAP (test code = AGAP) 12.3 10.0-20.0 [place] 853501-10-17 10:14:00 Test Item Value Reference Range Interpretation Comments B/C Ratio (test code = B/C Ratio) 19 1 6-25 [place] 853501-10-17 10:14:00 Test Item Value Reference Range Interpretation Comments Globulin (test code = Globulin) 3.6 2.7-4.2 [place] 853501-10-17 10:14:00 Test Item Value Reference Range Interpretation Comments A/G Ratio (test code = A/G Ratio) 0.8 1 0.7-1.6 [place] 853501-10-17 10:14:00 Test Item Value Reference Range Interpretation Comments eGFR (test code = eGFR) 91 [place] 139731-10-17 10:14:00 Test Item Value Reference Range Interpretation Comments WBC (test code = WBC) 9.8 3.7-10.4 [place] 139731-10-17 10:14:00 Test Item Value Reference Range Interpretation Comments RBC (test code = RBC) 3.87 4.20-5.40 [place] 139731-10-17 10:14:00 Test Item Value Reference Range Interpretation Comments Hgb (test code = Hgb) 11.0 12.0-16.0 [place] [address]-10-17 10:14:00 Test Item Value Reference Range Interpretation Comments Hct (test code = Hct) 33.3 36.0-48.0 [place] [address]-10-17 10:14:00 Test Item Value Reference Range Interpretation Comments MCV (test code = MCV) 86.1 80.0-98.0 [place] [address]-10-17 10:14:00 Test Item Value Reference Range Interpretation Comments MCH (test code = MCH) 28.4 pg 27.0-31.0 [place] 139731-10-17 10:14:00 Test Item Value Reference Range Interpretation Comments MCHC (test code = MCHC) 33.0 32.0-36.0 [place] 139731-10-17 10:14:00 Test Item Value Reference Range Interpretation Comments RDW (test code = RDW) 15.4 11.5-14.5 [facility] CentralCkalgqoTJHNRBAVEO0852-57-57 10:14:00 Test Item Value Reference Range Interpretation Comments Platelet (test code = Platelet) 418 133-450 [facility] CentralHlqnxqlIBUWAFTQIL2323-24-37 10:14:00 Test Item Value Reference Range Interpretation Comments MPV (test code = MPV) 8.1 7.4-10.4 [place] 139731-10-17 10:14:00 Test Item Value Reference Range Interpretation Comments PTT (test code = PTT) 31.9 s 22.9-35.8 [place] 139731-10-17 10:14:00 Test Item Value Reference Range Interpretation Comments Segs (test code = Segs) 78.7 45.0-75.0 [facility] CentralGhdelysZMGDUDFRKS8321-69-70 10:14:00 Test Item Value Reference Range Interpretation Comments Lymphocytes (test code = Lymphocytes) 13.1 20.0-40.0 [facility] CentralUgoibduDSJUZNEUUJ8960-99-74 10:14:00 Test Item Value Reference Range Interpretation Comments Monocytes (test code = Monocytes) 6.8 2.0-12.0 [facility] CentralGiptnggBPUWCOUIST6510-92-14 10:14:00 Test Item Value Reference Range Interpretation Comments Eosinophils (test code = 0.7 See_Comment [A utomated message] The Eosinophils) system which ge nerated this result tra nsmitted reference range : <=4.0. The reference r arelis was not used to int erpret this result as normal/abnormal . [facility] CentralRhgmzsrMDSCNDSCAA2114-56-89 10:14:00 Test Item Value Reference Range Interpretation Comments Basophils (test code = 0.7 See_Comment [Aut omated message] The Basophils) system which ge nerated this result tra nsmitted reference range : <=1.0. The reference r arelis was not used to int erpret this result as normal/abnormal . [facility] CentralBbtxaxqLHKKKUHUUK1441-18-74 10:14:00 Test Item Value Reference Range Interpretation Comments Neutrophils # (test code = Neutrophils 7.7 1.5-8.1 #) [facility] CentralGnqhynzEYFZRNVFGD7264-93-82 10:14:00 Test Item Value Reference Range Interpretation Comments Lymphocytes # (test code = Lymphocytes 1.3 1.0-5.5 #) [place] 139731-10-17 10:14:00 Test Item Value Reference Range Interpretation Comments Monocytes # (test code 0.7 See_Comment [Aut omated message] The = Monocytes #) system which generated this result tra nsmitted reference range : <=0.8. The reference r arelis was not used to int erpret this result as normal/abnormal . [place] 139731-10-17 10:14:00 Test Item Value Reference Range Interpretation Comments Eosinophils # (test code 0.1 See_Comment [A utomated message] The = Eosinophils #) system whic h generated this result tra nsmitted reference range : <=0.5. The reference r arelis was not used to int erpret this result as normal/abnormal . [place] 139731-10-17 10:14:00 Test Item Value Reference Range Interpretation Comments Basophils # (test code 0.1 See_Comment [Aut omated message] The = Basophils #) system which generated this result tra nsmitted reference range : <=0.2. The reference r arelis was not used to int erpret this result as normal/abnormal . [place] [address]-10-17 10:14:00 Test Item Value Reference Range Interpretation Comments PT (test code = PT) 16.8 s 12.0-14.7 [place] [address]-10-17 10:14:00 Test Item Value Reference Range Interpretation Comments INR (test code = INR) 1.39 1 0.85-1.17 [place] 853501-10-17 10:14:00 Test Item Value Reference Range Interpretation Comments Glucose Lvl (test code = Glucose Lvl) 107 70-99 [place] 853501-10-17 10:14:00 Test Item Value Reference Range Interpretation Comments BUN (test code = BUN) 13 7-22 [place] 853501-10-17 10:14:00 Test Item Value Reference Range Interpretation Comments Creatinine Lvl (test code = Creatinine 0.67 0.50-1.40 Lvl) [place] 853501-10-17 10:14:00 Test Item Value Reference Range Interpretation Comments Sodium Lvl (test code = Sodium Lvl) 143 135-145 [place] 853501-10-17 10:14:00 Test Item Value Reference Range Interpretation Comments Glucose Lvl (test code = Glucose Lvl) 107 70-99 [place] 853501-10-17 10:14:00 Test Item Value Reference Range Interpretation Comments BUN (test code = BUN) 13 7-22 [place] 853501-10-17 10:14:00 Test Item Value Reference Range Interpretation Comments Creatinine Lvl (test code = Creatinine 0.67 0.50-1.40 Lvl) [place] 853501-10-17 10:14:00 Test Item Value Reference Range Interpretation Comments Sodium Lvl (test code = Sodium Lvl) 143 135-145 [place] 853501-10-17 10:14:00 Test Item Value Reference Range Interpretation Comments Potassium Lvl (test code = Potassium 3.3 3.5-5.1 Lvl) [place] 853501-10-17 10:14:00 Test Item Value Reference Range Interpretation Comments Chloride Lvl (test code = Chloride Lvl) 111 95-109 [place] 853501-10-17 10:14:00 Test Item Value Reference Range Interpretation Comments CO2 (test code = CO2) 23 24-32 [place] 853501-10-17 10:14:00 Test Item Value Reference Range Interpretation Comments Calcium Lvl (test code = Calcium Lvl) 9.2 8.5-10.5 [facility]2021-10-17 10:14:00 Test Item Value Reference Range Interpretation Comments Total Protein (test code = Total 6.5 6.4-8.4 Protein) [place] 853501-10-17 10:14:00 Test Item Value Reference Range Interpretation Comments Potassium Lvl (test code = Potassium 3.3 3.5-5.1 Lvl) [place] 853501-10-17 10:14:00 Test Item Value Reference Range Interpretation Comments Albumin Lvl (test code = Albumin Lvl) 2.9 3.5-5.0 [place] 853501-10-17 10:14:00 Test Item Value Reference Range Interpretation Comments ALT (test code = ALT) 19 See_Comment [Auto mated message] The system which ge nerated this result transmit sarah reference range : <=65. The reference range was not used to interpr et this result as felicitas l/abnormal. [place] 853501-10-17 10:14:00 Test Item Value Reference Range Interpretation Comments AST (test code = AST) 13 See_Comment [Auto mated message] The system which ge nerated this result transmit sarah reference range : <=37. The reference range was not used to interpr et this result as felicitas l/abnormal. [place] 853501-10-17 10:14:00 Test Item Value Reference Range Interpretation Comments Alk Phos (test code = Alk Phos) 102 39-136 [place] 853501-10-17 10:14:00 Test Item Value Reference Range Interpretation Comments Bili Total (test code = Bili Total) 0.3 0.2-1.3 [place] 853501-10-17 10:14:00 Test Item Value Reference Range Interpretation Comments AGAP (test code = AGAP) 12.3 10.0-20.0 [place] 853501-10-17 10:14:00 Test Item Value Reference Range Interpretation Comments B/C Ratio (test code = B/C Ratio) 19 1 6-25 [place] [address]-10-17 10:14:00 Test Item Value Reference Range Interpretation Comments Globulin (test code = Globulin) 3.6 2.7-4.2 [place] 853501-10-17 10:14:00 Test Item Value Reference Range Interpretation Comments A/G Ratio (test code = A/G Ratio) 0.8 1 0.7-1.6 [place] 853501-10-17 10:14:00 Test Item Value Reference Range Interpretation Comments eGFR (test code = eGFR) 91 [place] 853501-10-17 10:14:00 Test Item Value Reference Range Interpretation Comments Chloride Lvl (test code = Chloride Lvl) 111 95-109 [place] 139731-10-17 10:14:00 Test Item Value Reference Range Interpretation Comments WBC (test code = WBC) 9.8 3.7-10.4 [place] 139731-10-17 10:14:00 Test Item Value Reference Range Interpretation Comments RBC (test code = RBC) 3.87 4.20-5.40 [place] 139731-10-17 10:14:00 Test Item Value Reference Range Interpretation Comments Hgb (test code = Hgb) 11.0 12.0-16.0 [facility] CampusOudfkbdOKVGSIHNPF3100-38-80 10:14:00 Test Item Value Reference Range Interpretation Comments Hct (test code = Hct) 33.3 36.0-48.0 [facility] CampusCvuypxlHBRRNMOVIG6151-11-81 10:14:00 Test Item Value Reference Range Interpretation Comments MCV (test code = MCV) 86.1 80.0-98.0 [facility] CampusWkteajoUYWNZGQCSE0795-40-63 10:14:00 Test Item Value Reference Range Interpretation Comments MCH (test code = MCH) 28.4 pg 27.0-31.0 [facility] CampusHoaymbeAIDNDJXYVI4942-20-51 10:14:00 Test Item Value Reference Range Interpretation Comments MCHC (test code = MCHC) 33.0 32.0-36.0 [facility]GrumghgTDPWOJJTST8512-40-33 10:14:00 Test Item Value Reference Range Interpretation Comments RDW (test code = RDW) 15.4 11.5-14.5 [facility] CampusYjnamerIPQPNEAZTS8434-86-64 10:14:00 Test Item Value Reference Range Interpretation Comments Platelet (test code = Platelet) 418 133-450 [facility] CampusDeupqhlZMRUUJLLYZ7654-31-11 10:14:00 Test Item Value Reference Range Interpretation Comments MPV (test code = MPV) 8.1 7.4-10.4 [facility]2021-10-17 10:14:00 Test Item Value Reference Range Interpretation Comments CO2 (test code = CO2) 23 24-32 [facility] CampusLsrxqfjNMEHCRIMPG7463-38-27 10:14:00 Test Item Value Reference Range Interpretation Comments PTT (test code = PTT) 31.9 s 22.9-35.8 [facility] CampusVratidzEQYSJHOQYU7616-50-51 10:14:00 Test Item Value Reference Range Interpretation Comments Segs (test code = Segs) 78.7 45.0-75.0 [facility] CampusRyogsnqCDDYTALAWC1316-07-75 10:14:00 Test Item Value Reference Range Interpretation Comments Lymphocytes (test code = Lymphocytes) 13.1 20.0-40.0 [facility] CampusFttinpeBBPHKSRITD5742-08-64 10:14:00 Test Item Value Reference Range Interpretation Comments Monocytes (test code = Monocytes) 6.8 2.0-12.0 [place] 139731-10-17 10:14:00 Test Item Value Reference Range Interpretation Comments Eosinophils (test code = 0.7 See_Comment [A utomated message] The Eosinophils) system which ge nerated this result tra nsmitted reference range : <=4.0. The reference r arelis was not used to int erpret this result as normal/abnormal . [place] 139731-10-17 10:14:00 Test Item Value Reference Range Interpretation Comments Basophils (test code = 0.7 See_Comment [Aut omated message] The Basophils) system which ge nerated this result tra nsmitted reference range : <=1.0. The reference r arelis was not used to int erpret this result as normal/abnormal . [place] 139731-10-17 10:14:00 Test Item Value Reference Range Interpretation Comments Neutrophils # (test code = Neutrophils 7.7 1.5-8.1 #) [id number] 10:14:00 Test Item Value Reference Range Interpretation Comments Lymphocytes # (test code = Lymphocytes 1.3 1.0-5.5 #) [place] 139731-10-17 10:14:00 Test Item Value Reference Range Interpretation Comments Monocytes # (test code 0.7 See_Comment [Aut omated message] The = Monocytes #) system which generated this result tra nsmitted reference range : <=0.8. The reference r aerlis was not used to int erpret this result as normal/abnormal . [facility] CentralJgvuytrLIUTBJDHPB4244-40-77 10:14:00 Test Item Value Reference Range Interpretation Comments Eosinophils # (test code 0.1 See_Comment [A utomated message] The = Eosinophils #) system whic h generated this result tra nsmitted reference range : <=0.5. The reference r arelis was not used to int erpret this result as normal/abnormal . [facility]2021-10-17 10:14:00 Test Item Value Reference Range Interpretation Comments Calcium Lvl (test code = Calcium Lvl) 9.2 8.5-10.5 [facility] Ce[id number] 10:14:00 Test Item Value Reference Range Interpretation Comments Basophils # (test code 0.1 See_Comment [Aut omated message] The = Basophils #) system which generated this result tra nsmitted reference range : <=0.2. The reference r arelis was not used to int erpret this result as normal/abnormal . [facility] CentralXmvndziYSLSBIJKDE0830-63-72 10:14:00 Test Item Value Reference Range Interpretation Comments PT (test code = PT) 16.8 s 12.0-14.7 [place] 139731-10-17 10:14:00 Test Item Value Reference Range Interpretation Comments INR (test code = INR) 1.39 1 0.85-1.17 [facility] [id number] 10:14:00 Test Item Value Reference Range Interpretation Comments Total Protein (test code = Total 6.5 6.4-8.4 Protein) [place] 853501-10-17 10:14:00 Test Item Value Reference Range Interpretation Comments Albumin Lvl (test code = Albumin Lvl) 2.9 3.5-5.0 [place] 853501-10-17 10:14:00 Test Item Value Reference Range Interpretation Comments ALT (test code = ALT) 19 See_Comment [Auto mated message] The system which ge nerated this result transmit sarah reference range : <=65. The reference range was not used to interpr et this result as felicitas l/abnormal. [facility] [id number] 10:14:00 Test Item Value Reference Range Interpretation Comments AST (test code = AST) 13 See_Comment [Auto mated message] The system which ge nerated this result transmit sarah reference range : <=37. The reference range was not used to interpr et this result as felicitas l/abnormal. [facility] [id number] 10:14:00 Test Item Value Reference Range Interpretation Comments Alk Phos (test code = Alk Phos) 102 39-136 [facility] [id number] 10:14:00 Test Item Value Reference Range Interpretation Comments Bili Total (test code = Bili Total) 0.3 0.2-1.3 [place] 853501-10-17 10:14:00 Test Item Value Reference Range Interpretation Comments AGAP (test code = AGAP) 12.3 10.0-20.0 [facility] [id number] 10:14:00 Test Item Value Reference Range Interpretation Comments B/C Ratio (test code = B/C Ratio) 19 1 6-25 [facility]2021-10-17 10:14:00 Test Item Value Reference Range Interpretation Comments Globulin (test code = Globulin) 3.6 2.7-4.2 [facility]2021-10-17 10:14:00 Test Item Value Reference Range Interpretation Comments A/G Ratio (test code = A/G Ratio) 0.8 1 0.7-1.6 [facility]2021-10-17 10:14:00 Test Item Value Reference Range Interpretation Comments eGFR (test code = eGFR) 91 [facility] CentralVrjnsysELVVNCJHEJ9103-54-14 10:14:00 Test Item Value Reference Range Interpretation Comments WBC (test code = WBC) 9.8 3.7-10.4 [facility] CentralEzjrldhNDPPJQJAPT3776-12-41 10:14:00 Test Item Value Reference Range Interpretation Comments RBC (test code = RBC) 3.87 4.20-5.40 [facility] CentralOhillryHFICONANRA8360-83-55 10:14:00 Test Item Value Reference Range Interpretation Comments Hgb (test code = Hgb) 11.0 12.0-16.0 [facility] CentralCivcqtmLHUHGPWNXX6085-62-52 10:14:00 Test Item Value Reference Range Interpretation Comments Hct (test code = Hct) 33.3 36.0-48.0 [facility] CentralRjzxsnhCBUENDVLIY9867-67-56 10:14:00 Test Item Value Reference Range Interpretation Comments MCV (test code = MCV) 86.1 80.0-98.0 [facility] CentralKtaxuezHRHCYDTEDF6214-08-43 10:14:00 Test Item Value Reference Range Interpretation Comments MCH (test code = MCH) 28.4 pg 27.0-31.0 [facility] CentralUqcfzsmOKIKXPDIFE0178-91-87 10:14:00 Test Item Value Reference Range Interpretation Comments MCHC (test code = MCHC) 33.0 32.0-36.0 [facility] CentralXrldzfeWDJAPEBNRT0982-72-91 10:14:00 Test Item Value Reference Range Interpretation Comments RDW (test code = RDW) 15.4 11.5-14.5 [facility] CentralXgzqqwsJLNXKNNQEA4099-56-45 10:14:00 Test Item Value Reference Range Interpretation Comments Platelet (test code = Platelet) 418 133-450 [place] 139731-10-17 10:14:00 Test Item Value Reference Range Interpretation Comments MPV (test code = MPV) 8.1 7.4-10.4 [facility] CentralVtetatrVCFZLDKVFX9102-57-28 10:14:00 Test Item Value Reference Range Interpretation Comments PTT (test code = PTT) 31.9 s 22.9-35.8 [facility] CentralAjclccvJKNSSNPXQL1530-54-36 10:14:00 Test Item Value Reference Range Interpretation Comments Segs (test code = Segs) 78.7 45.0-75.0 [facility] METABOLIC PANEL (22843)2021-04-09 01:09:40 Test Item Value Reference Range Interpretation Comments NA (test code = 139 mmol/L 135-145 3465018618) K (test code = 4.0 mmol/L 3.5-5.0 2825812672) CL (test code = 108 mmol/L 98-108 9251629302) CO2 TOTAL (test code = 23 mmol/L 23-31 9585293820) AGAP (test code = 2-16 5516790792) BUN (test code = 13 mg/dL 7-23 8202364800) GLUCOSE (test code = 124 mg/dL 70-110 H 8158291759) CREATININE (test code = 0.75 mg/dL 0.50-1.04 8581821013) TOTAL BILI (test code = 0.3 mg/dL 0.1-1.8 1881044046) CALCIUM (test code = 10.0 mg/dL 8.6-10.6 8333417432) T PROTEIN (test code = 6.2 g/dL 6.3-8.2 L 7652240831) ALBUMIN (test code = 3.6 g/dL 3.5-5.0 4008854498) ALK PHOS (test code = 104 U/L 34-122 7231018873) ALTv (test code = 13 U/L 5-35 1742-6) AST(SGOT) (test code = 22 U/L 13-40 5126668459) eGFR (test code = mL/min/1.73m2 0128198092) BRIDGET (test code = BRIDGET) Association of Glomerular Filtration Rate (GFR) and Staging of Kidney Disease* + --+ --+ ------+| GFR (mL/min/1.73 m2) ?| With Kidney Damage ?| ?Without Kidney Damage+ --------+ --------+ +| ?>90 ?| ?Stage one ?| ? Normal ?+ ---+ ---+ -------+| ?60-89 ?| ?Stage two ?| ? Decreased GFR ? + --+ --+ ------+| ?30-59 ?| ?Stage three ?| ? Stage three ? + --+ --+ ------+| ?15-29 ?| ?Stage four ? | ? Stage four ?+ ---+ ---+ -------+| ?<15 (or dialysis) ? ?| ?Stage five ? | ? Stage five ?+ ---+ ---+ -------+ *Each stage assumes the associated GFR level has been in effect for at least three months. ?Stages 1 to 5, with or without kidney disease, indicate chronic kidney disease. Notes: Determination of stages one and two (with eGFR >59mL/min/1.73 m2) requires estimation of kidney damage for at least three months as defined by structural or functional abnormalities of the kidney, manifested by either:Pathological abnormalities or Markers of kidney damage (including abnormalities in the composition of the blood or urine or abnormalities in imaging tests). Lab Interpretation Abnormal (test code = 64907-5) [facility] [id number] 01:04:22 Test Item Value Reference Range Interpretation Comments APTT Patient (test See_Comment H [Automat ed code = 3173-2) message] The system which generated this result transmitted reference range : 23 - 38 Seconds . The reference range was not used to interpr et this result as normal/abnormal . BRIDGET (test code = BRIDGET) The [facility] patient population mean normal value for aPTT is 30 seconds. Lab Interpretation Abnormal (test code = 78071-3) [facility] / [id number] 01:02:20 Test Item Value Reference Range Interpretation Comments PROTIME PATIENT (test See_Comment H [Auto mated message] code = 5964-2) The system wh ich generated this result transmitted ref erence range: 12.0 - 1 4.7 Seconds. The reference range was not used to int erpret this result as normal/abnormal . INR (test code = 6301-6) Nor mal INR <1.1; Warfarin Therap eutic range 2.0 to 3. 0 or 2.5 to 3.5, dep ending upon the indica tions. Lab Interpretation (test Abnormal code = 61529-1) [facility] WITH [id number] 00:59:36 Test Item Value Reference Range Interpretation Comments WBC (test code = See_Comment [Automated 5090-2) message] The sy stem which generated this result transmitted reference range : 4.30 - 11.10 10*3/?L. The reference range was not used to interpret this result as normal/abnormal . RBC (test code = See_Comment [Automated 219-8) message] The sy stem which generated this result transmitted reference range : 3.93 - 5.25 10*6/?L. The reference range was not used to interpret this result as normal/abnormal . HGB (test code = 11.7 g/dL 11.6-15.0 718-7) HCT (test code = 36.9 % 35.7-45.2 4544-3) MCV (test code = 88.9 fL 80.6-95.5 787-2) MCH (test code = 28.2 pg 25.9-32.8 785-6) MCHC (test code = 31.7 g/dL 31.6-35.1 786-4) RDW-SD (test code = 46.4 fL 39.0-49.9 79666-0) RDW-CV (test code = 14.4 % 12.0-15.5 788-0) PLT (test code = See_Comment H [Automated 777-3) message] The sy stem which generated this result transmitted reference range : 166 - 358 10*3/ ?L. The reference r arelis was not used to interpret this result as normal/abnormal . MPV (test code = 10.6 fL 9.5-12.9 00863-9) NRBC/100 WBC (test See_Comment [Automat ed code = 0755708593) message] The system which generated this result transmitted reference range : 0.0 - 10.0 /100 WBCs. The refer ence range was not u sed to interpret th is result as normal/abnormal . NRBC x10^3 (test code <0.01 See_Comment [Auto mated = 6687632582) message] The s ystem which generated this result transmitted reference range : 10*3/?L. The reference range was not used to interpret this result as normal/abnormal . GRAN MAT (NEUT) % 72.3 % (test code = 770-8) IMM GRAN % (test code 0.40 % = 9841174434) LYMPH % (test code = 17.4 % 736-9) MONO % (test code = 7.9 % 5905-5) EOS % (test code = 1.3 % 713-8) BASO % (test code = 0.7 % 706-2) GRAN MAT x10^3(ANC) 7.18 10*3/uL 1.88-7.09 H (test code = 6445623106) IMM GRAN x10^3 (test 0.04 10*3/uL 0.00-0.06 code = 0048313876) LYMPH x10^3 (test code 1.73 10*3/uL 1.32-3.29 = 731-0) MONO x10^3 (test code 0.78 10*3/uL 0.33-0.92 = 742-7) EOS x10^3 (test code = 0.13 10*3/uL 0.03-0.39 711-2) BASO x10^3 (test code 0.07 10*3/uL 0.01-0.07 = 704-7) Lab Interpretation Abnormal (test code = 22319-2) [facility] [id number] 18:53:00 Test Item Value Reference Range Interpretation Comments POC UA Color (test Yellow *NA*(03/28/21 code = POC UA Color) 1:53 PM) [facility]2021-10-05 18:53:00 Test Item Value Reference Range Interpretation Comments POC UA Turbidity (test Clear *NA*(03/28/21 code = POC UA Turbidity) 1:53 PM) [facility] AND [id number] 18:53:00 Test Item Value Reference Range Interpretation Comments POC UA SG (test code = >=1.030 *ABN*(03/28/21 POC UA SG) 1:53 PM) [facility] [id number] 18:53:00 Test Item Value Reference Range Interpretation Comments POC UA pH (test code = POC UA pH) 5.0 1 5.0-8.0 [facility] [id number] 18:53:00 Test Item Value Reference Range Interpretation Comments POC UA Prot (test code = POC UA 100 mg/dL Prot) [facility] [id number] 18:53:00 Test Item Value Reference Range Interpretation Comments POC UA Glu (test code = POC UA Negative mg/dL Glu) [facility] [id number] 18:53:00 Test Item Value Reference Range Interpretation Comments POC UA Ket (test code = POC UA Negative mg/dL Ket) [facility] [id number] 18:53:00 Test Item Value Reference Range Interpretation Comments POC UA Bili (test code Small *ABN*(03/28/21 = POC UA Bili) 1:53 PM) [facility] [id number] 18:53:00 Test Item Value Reference Range Interpretation Comments POC UA Bld (test code Trace *ABN*(03/28/21 = POC UA Bld) 1:53 PM) [facility] [id number] 18:53:00 Test Item Value Reference Range Interpretation Comments POC UA Uro (test code = POC UA Uro) 0.2 0.1-1.0 [facility] [id number] 18:53:00 Test Item Value Reference Range Interpretation Comments POC UA Nit (test code Negative *NA*(03/28/21 = POC UA Nit) 1:53 PM) [facility] [id number] 18:53:00 Test Item Value Reference Range Interpretation Comments POC UA LeukEst (test Negative *NA*(03/28/21 code = POC UA LeukEst) 1:53 PM) [facility] [id number] 18:53:00 Test Item Value Reference Range Interpretation Comments POC UA Color (test Yellow *NA*(03/28/21 code = POC UA Color) 1:53 PM) [facility] [id number] 18:53:00 Test Item Value Reference Range Interpretation Comments POC UA Turbidity (test Clear *NA*(03/28/21 code = POC UA Turbidity) 1:53 PM) [facility] [id number] 18:53:00 Test Item Value Reference Range Interpretation Comments POC UA SG (test code = >=1.030 *ABN*(03/28/21 POC UA SG) 1:53 PM) [facility] [id number] 18:53:00 Test Item Value Reference Range Interpretation Comments POC UA pH (test code = POC UA pH) 5.0 1 5.0-8.0 [facility] [id number] 18:53:00 Test Item Value Reference Range Interpretation Comments POC UA Prot (test code = POC UA 100 mg/dL Prot) [facility] [id number] 18:53:00 Test Item Value Reference Range Interpretation Comments POC UA Glu (test code = POC UA Negative mg/dL Glu) [facility] [id number] 18:53:00 Test Item Value Reference Range Interpretation Comments POC UA Color (test Yellow *NA*(03/28/21 code = POC UA Color) 1:53 PM) [facility] [id number] 18:53:00 Test Item Value Reference Range Interpretation Comments POC UA Ket (test code = POC UA Negative mg/dL Ket) [facility] [id number] 18:53:00 Test Item Value Reference Range Interpretation Comments POC UA Turbidity (test Clear *NA*(03/28/21 code = POC UA Turbidity) 1:53 PM) [facility] [id number] 18:53:00 Test Item Value Reference Range Interpretation Comments POC UA SG (test code = >=1.030 *ABN*(03/28/21 POC UA SG) 1:53 PM) [facility] [id number] 18:53:00 Test Item Value Reference Range Interpretation Comments POC UA pH (test code = POC UA pH) 5.0 1 5.0-8.0 [facility] [id number] 18:53:00 Test Item Value Reference Range Interpretation Comments POC UA Prot (test code = POC UA 100 mg/dL Prot) [facility] [id number] 18:53:00 Test Item Value Reference Range Interpretation Comments POC UA Glu (test code = POC UA Negative mg/dL Glu) [facility] [id number] 18:53:00 Test Item Value Reference Range Interpretation Comments POC UA Ket (test code = POC UA Negative mg/dL Ket) [facility] [id number] 18:53:00 Test Item Value Reference Range Interpretation Comments POC UA Bili (test code Small *ABN*(03/28/21 = POC UA Bili) 1:53 PM) [facility] [id number] 18:53:00 Test Item Value Reference Range Interpretation Comments POC UA Bld (test code Trace *ABN*(03/28/21 = POC UA Bld) 1:53 PM) [facility] [id number] 18:53:00 Test Item Value Reference Range Interpretation Comments POC UA Uro (test code = POC UA Uro) 0.2 0.1-1.0 [facility] [id number] 18:53:00 Test Item Value Reference Range Interpretation Comments POC UA Nit (test code Negative *NA*(03/28/21 = POC UA Nit) 1:53 PM) [facility] [id number] 18:53:00 Test Item Value Reference Range Interpretation Comments POC UA Bili (test code Small *ABN*(03/28/21 = POC UA Bili) 1:53 PM) [facility] [place] [facility] [id number] 18:53:00 Test Item Value Reference Range Interpretation Comments POC UA LeukEst (test Negative *NA*(03/28/21 code = POC UA LeukEst) 1:53 PM) [facility] [id number] 18:53:00 Test Item Value Reference Range Interpretation Comments POC UA Bld (test code Trace *ABN*(03/28/21 = POC UA Bld) 1:53 PM) [facility] [id number] 18:53:00 Test Item Value Reference Range Interpretation Comments POC UA Uro (test code = POC UA Uro) 0.2 0.1-1.0 [facility] [id number] 18:53:00 Test Item Value Reference Range Interpretation Comments POC UA Nit (test code Negative *NA*(03/28/21 = POC UA Nit) 1:53 PM) [facility] [id number] 18:53:00 Test Item Value Reference Range Interpretation Comments POC UA LeukEst (test Negative *NA*(03/28/21 code = POC UA LeukEst) 1:53 PM) [facility] [id number] 18:53:00 Test Item Value Reference Range Interpretation Comments POC UA Color (test Yellow *NA*(03/28/21 code = POC UA Color) 1:53 PM) [facility] [id number] 18:53:00 Test Item Value Reference Range Interpretation Comments POC UA Turbidity (test Clear *NA*(03/28/21 code = POC UA Turbidity) 1:53 PM) [facility] [id number] 18:53:00 Test Item Value Reference Range Interpretation Comments POC UA SG (test code = >=1.030 *ABN*(03/28/21 POC UA SG) 1:53 PM) [facility] [id number] 18:53:00 Test Item Value Reference Range Interpretation Comments POC UA pH (test code = POC UA pH) 5.0 1 5.0-8.0 [facility] [id number] 18:53:00 Test Item Value Reference Range Interpretation Comments POC UA Prot (test code = POC UA 100 mg/dL Prot) [facility] [id number] 18:53:00 Test Item Value Reference Range Interpretation Comments POC UA Glu (test code = POC UA Negative mg/dL Glu) [facility] [id number] 18:53:00 Test Item Value Reference Range Interpretation Comments POC UA Ket (test code = POC UA Negative mg/dL Ket) [facility] [id number] 18:53:00 Test Item Value Reference Range Interpretation Comments POC UA Bili (test code Small *ABN*(03/28/21 = POC UA Bili) 1:53 PM) [facility] [id number] 18:53:00 Test Item Value Reference Range Interpretation Comments POC UA Bld (test code Trace *ABN*(03/28/21 = POC UA Bld) 1:53 PM) [facility] [id number] 18:53:00 Test Item Value Reference Range Interpretation Comments POC UA Uro (test code = POC UA Uro) 0.2 0.1-1.0 [facility] [id number] 18:53:00 Test Item Value Reference Range Interpretation Comments POC UA Nit (test code Negative *NA*(03/28/21 = POC UA Nit) 1:53 PM) [facility] [id number] 18:53:00 Test Item Value Reference Range Interpretation Comments POC UA LeukEst (test Negative *NA*(03/28/21 code = POC UA LeukEst) 1:53 PM) [facility] [id number] 18:53:00 Test Item Value Reference Range Interpretation Comments POC UA Color (test Yellow *NA*(03/28/21 code = POC UA Color) 1:53 PM) [facility] [id number] 18:53:00 Test Item Value Reference Range Interpretation Comments POC UA Turbidity (test Clear *NA*(03/28/21 code = POC UA Turbidity) 1:53 PM) [facility] [id number] 18:53:00 Test Item Value Reference Range Interpretation Comments POC UA SG (test code = >=1.030 *ABN*(03/28/21 POC UA SG) 1:53 PM) [facility] [id number] 18:53:00 Test Item Value Reference Range Interpretation Comments POC UA pH (test code = POC UA pH) 5.0 1 5.0-8.0 [facility] [id number] 18:53:00 Test Item Value Reference Range Interpretation Comments POC UA Prot (test code = POC UA 100 mg/dL Prot) [facility] [id number] 18:53:00 Test Item Value Reference Range Interpretation Comments POC UA Glu (test code = POC UA Negative mg/dL Glu) [facility] [id number] 18:53:00 Test Item Value Reference Range Interpretation Comments POC UA Ket (test code = POC UA Negative mg/dL Ket) [facility] [id number] 18:53:00 Test Item Value Reference Range Interpretation Comments POC UA Bili (test code Small *ABN*(03/28/21 = POC UA Bili) 1:53 PM) [facility] [id number] 18:53:00 Test Item Value Reference Range Interpretation Comments POC UA Bld (test code Trace *ABN*(03/28/21 = POC UA Bld) 1:53 PM) [facility] [id number] 18:53:00 Test Item Value Reference Range Interpretation Comments POC UA Uro (test code = POC UA Uro) 0.2 0.1-1.0 [facility] [id number] 18:53:00 Test Item Value Reference Range Interpretation Comments POC UA Nit (test code Negative *NA*(03/28/21 = POC UA Nit) 1:53 PM) [facility] [id number] 18:53:00 Test Item Value Reference Range Interpretation Comments POC UA LeukEst (test Negative *NA*(03/28/21 code = POC UA LeukEst) 1:53 PM) [facility] [id number] 18:53:00 Test Item Value Reference Range Interpretation Comments POC UA Color (test Yellow *NA*(03/28/21 code = POC UA Color) 1:53 PM) [facility] [id number] 18:53:00 Test Item Value Reference Range Interpretation Comments POC UA Turbidity (test Clear *NA*(03/28/21 code = POC UA Turbidity) 1:53 PM) [facility] [id number] 18:53:00 Test Item Value Reference Range Interpretation Comments POC UA SG (test code = >=1.030 *ABN*(03/28/21 POC UA SG) 1:53 PM) [facility] [id number] 18:53:00 Test Item Value Reference Range Interpretation Comments POC UA pH (test code = POC UA pH) 5.0 1 5.0-8.0 [facility] [id number] 18:53:00 Test Item Value Reference Range Interpretation Comments POC UA Prot (test code = POC UA 100 mg/dL Prot) [facility] [id number] 18:53:00 Test Item Value Reference Range Interpretation Comments POC UA Glu (test code = POC UA Negative mg/dL Glu) [facility] [id number] 18:53:00 Test Item Value Reference Range Interpretation Comments POC UA Ket (test code = POC UA Negative mg/dL Ket) [facility] [id number] 18:53:00 Test Item Value Reference Range Interpretation Comments POC UA Bili (test code Small *ABN*(03/28/21 = POC UA Bili) 1:53 PM) [facility] [id number] 18:53:00 Test Item Value Reference Range Interpretation Comments POC UA Bld (test code Trace *ABN*(03/28/21 = POC UA Bld) 1:53 PM) [facility] [id number] 18:53:00 Test Item Value Reference Range Interpretation Comments POC UA Uro (test code = POC UA Uro) 0.2 0.1-1.0 [facility] [id number] 18:53:00 Test Item Value Reference Range Interpretation Comments POC UA Nit (test code Negative *NA*(03/28/21 = POC UA Nit) 1:53 PM) [facility] [id number] 18:53:00 Test Item Value Reference Range Interpretation Comments POC UA LeukEst (test Negative *NA*(03/28/21 code = POC UA LeukEst) 1:53 PM) [facility] [id number] 18:53:00 Test Item Value Reference Range Interpretation Comments POC UA Color (test Yellow *NA*(03/28/21 code = POC UA Color) 1:53 PM) [facility] [id number] 18:53:00 Test Item Value Reference Range Interpretation Comments POC UA Turbidity (test Clear *NA*(03/28/21 code = POC UA Turbidity) 1:53 PM) [facility] [id number] 18:53:00 Test Item Value Reference Range Interpretation Comments POC UA SG (test code = >=1.030 *ABN*(03/28/21 POC UA SG) 1:53 PM) [facility] [id number] 18:53:00 Test Item Value Reference Range Interpretation Comments POC UA pH (test code = POC UA pH) 5.0 1 5.0-8.0 [facility] [id number] 18:53:00 Test Item Value Reference Range Interpretation Comments POC UA Prot (test code = POC UA 100 mg/dL Prot) [facility] [id number] 18:53:00 Test Item Value Reference Range Interpretation Comments POC UA Glu (test code = POC UA Negative mg/dL Glu) [facility] [id number] 18:53:00 Test Item Value Reference Range Interpretation Comments POC UA Ket (test code = POC UA Negative mg/dL Ket) [facility] [id number] 18:53:00 Test Item Value Reference Range Interpretation Comments POC UA Bili (test code Small *ABN*(03/28/21 = POC UA Bili) 1:53 PM) [facility] [id number] 18:53:00 Test Item Value Reference Range Interpretation Comments POC UA Bld (test code Trace *ABN*(03/28/21 = POC UA Bld) 1:53 PM) [facility] [id number] 18:53:00 Test Item Value Reference Range Interpretation Comments POC UA Uro (test code = POC UA Uro) 0.2 0.1-1.0 [facility] [id number] 18:53:00 Test Item Value Reference Range Interpretation Comments POC UA Nit (test code Negative *NA*(03/28/21 = POC UA Nit) 1:53 PM) [facility] [id number] 18:53:00 Test Item Value Reference Range Interpretation Comments POC UA LeukEst (test Negative *NA*(03/28/21 code = POC UA LeukEst) 1:53 PM) [facility] [id number] 18:53:00 Test Item Value Reference Range Interpretation Comments POC UA Color (test Yellow *NA*(03/28/21 code = POC UA Color) 1:53 PM) [facility] [id number] 18:53:00 Test Item Value Reference Range Interpretation Comments POC UA Turbidity (test Clear *NA*(03/28/21 code = POC UA Turbidity) 1:53 PM) [facility] [id number] 18:53:00 Test Item Value Reference Range Interpretation Comments POC UA SG (test code = >=1.030 *ABN*(03/28/21 POC UA SG) 1:53 PM) [facility] [id number] 18:53:00 Test Item Value Reference Range Interpretation Comments POC UA pH (test code = POC UA pH) 5.0 1 5.0-8.0 [facility] [id number] 18:53:00 Test Item Value Reference Range Interpretation Comments POC UA Prot (test code = POC UA 100 mg/dL Prot) [facility] [id number] 18:53:00 Test Item Value Reference Range Interpretation Comments POC UA Glu (test code = POC UA Negative mg/dL Glu) [facility] [id number] 18:53:00 Test Item Value Reference Range Interpretation Comments POC UA Ket (test code = POC UA Negative mg/dL Ket) [facility] [id number] 18:53:00 Test Item Value Reference Range Interpretation Comments POC UA Bili (test code Small *ABN*(03/28/21 = POC UA Bili) 1:53 PM) [facility] [id number] 18:53:00 Test Item Value Reference Range Interpretation Comments POC UA Bld (test code Trace *ABN*(03/28/21 = POC UA Bld) 1:53 PM) [facility] [id number] 18:53:00 Test Item Value Reference Range Interpretation Comments POC UA Uro (test code = POC UA Uro) 0.2 0.1-1.0 [facility] [id number] 18:53:00 Test Item Value Reference Range Interpretation Comments POC UA Nit (test code Negative *NA*(03/28/21 = POC UA Nit) 1:53 PM) [facility] [id number] 18:53:00 Test Item Value Reference Range Interpretation Comments POC UA LeukEst (test Negative *NA*(03/28/21 code = POC UA LeukEst) 1:53 PM) [facility] [id number] 18:53:00 Test Item Value Reference Range Interpretation Comments POC UA Color (test Yellow *NA*(03/28/21 code = POC UA Color) 1:53 PM) [facility] [id number] 18:53:00 Test Item Value Reference Range Interpretation Comments POC UA Turbidity (test Clear *NA*(03/28/21 code = POC UA Turbidity) 1:53 PM) [facility] [id number] 18:53:00 Test Item Value Reference Range Interpretation Comments POC UA SG (test code = >=1.030 *ABN*(03/28/21 POC UA SG) 1:53 PM) [facility] [id number] 18:53:00 Test Item Value Reference Range Interpretation Comments POC UA pH (test code = POC UA pH) 5.0 1 5.0-8.0 [facility] [id number] 18:53:00 Test Item Value Reference Range Interpretation Comments POC UA Prot (test code = POC UA 100 mg/dL Prot) [facility] [id number] 18:53:00 Test Item Value Reference Range Interpretation Comments POC UA Glu (test code = POC UA Negative mg/dL Glu) [facility] [id number] 18:53:00 Test Item Value Reference Range Interpretation Comments POC UA Ket (test code = POC UA Negative mg/dL Ket) [facility] [id number] 18:53:00 Test Item Value Reference Range Interpretation Comments POC UA Bili (test code Small *ABN*(03/28/21 = POC UA Bili) 1:53 PM) [facility] [id number] 18:53:00 Test Item Value Reference Range Interpretation Comments POC UA Bld (test code Trace *ABN*(03/28/21 = POC UA Bld) 1:53 PM) [facility] [id number] 18:53:00 Test Item Value Reference Range Interpretation Comments POC UA Uro (test code = POC UA Uro) 0.2 0.1-1.0 [facility] [id number] 18:53:00 Test Item Value Reference Range Interpretation Comments POC UA Nit (test code Negative *NA*(03/28/21 = POC UA Nit) 1:53 PM) [facility] [id number] 18:53:00 Test Item Value Reference Range Interpretation Comments POC UA LeukEst (test Negative *NA*(03/28/21 code = POC UA LeukEst) 1:53 PM) [facility] [id number] 18:53:00 Test Item Value Reference Range Interpretation Comments POC UA Color (test Yellow *NA*(03/28/21 code = POC UA Color) 1:53 PM) [facility] [id number] 18:53:00 Test Item Value Reference Range Interpretation Comments POC UA Turbidity (test Clear *NA*(03/28/21 code = POC UA Turbidity) 1:53 PM) [facility] [id number] 18:53:00 Test Item Value Reference Range Interpretation Comments POC UA SG (test code = >=1.030 *ABN*(03/28/21 POC UA SG) 1:53 PM) [facility] [id number] 18:53:00 Test Item Value Reference Range Interpretation Comments POC UA pH (test code = POC UA pH) 5.0 1 5.0-8.0 [facility] [id number] 18:53:00 Test Item Value Reference Range Interpretation Comments POC UA Prot (test code = POC UA 100 mg/dL Prot) [facility] [id number] 18:53:00 Test Item Value Reference Range Interpretation Comments POC UA Glu (test code = POC UA Negative mg/dL Glu) [facility] [id number] 18:53:00 Test Item Value Reference Range Interpretation Comments POC UA Ket (test code = POC UA Negative mg/dL Ket) [facility] [id number] 18:53:00 Test Item Value Reference Range Interpretation Comments POC UA Bili (test code Small *ABN*(03/28/21 = POC UA Bili) 1:53 PM) [facility] [id number] 18:53:00 Test Item Value Reference Range Interpretation Comments POC UA Bld (test code Trace *ABN*(03/28/21 = POC UA Bld) 1:53 PM) [facility] [id number] 18:53:00 Test Item Value Reference Range Interpretation Comments POC UA Uro (test code = POC UA Uro) 0.2 0.1-1.0 [facility] [id number] 18:53:00 Test Item Value Reference Range Interpretation Comments POC UA Nit (test code Negative *NA*(03/28/21 = POC UA Nit) 1:53 PM) [facility] [id number] 18:53:00 Test Item Value Reference Range Interpretation Comments POC UA LeukEst (test Negative *NA*(03/28/21 code = POC UA LeukEst) 1:53 PM) [facility] [id number] 18:53:00 Test Item Value Reference Range Interpretation Comments POC UA Color (test Yellow *NA*(03/28/21 code = POC UA Color) 1:53 PM) [facility] [id number] 18:53:00 Test Item Value Reference Range Interpretation Comments POC UA Turbidity (test Clear *NA*(03/28/21 code = POC UA Turbidity) 1:53 PM) [facility] [id number] 18:53:00 Test Item Value Reference Range Interpretation Comments POC UA SG (test code = >=1.030 *ABN*(03/28/21 POC UA SG) 1:53 PM) [facility] [id number] 18:53:00 Test Item Value Reference Range Interpretation Comments POC UA pH (test code = POC UA pH) 5.0 1 5.0-8.0 [facility] [id number] 18:53:00 Test Item Value Reference Range Interpretation Comments POC UA Prot (test code = POC UA 100 mg/dL Prot) [facility] [id number] 18:53:00 Test Item Value Reference Range Interpretation Comments POC UA Glu (test code = POC UA Negative mg/dL Glu) [facility] [id number] 18:53:00 Test Item Value Reference Range Interpretation Comments POC UA Ket (test code = POC UA Negative mg/dL Ket) [facility] [id number] 18:53:00 Test Item Value Reference Range Interpretation Comments POC UA Bili (test code Small *ABN*(03/28/21 = POC UA Bili) 1:53 PM) [facility] [id number] 18:53:00 Test Item Value Reference Range Interpretation Comments POC UA Bld (test code Trace *ABN*(03/28/21 = POC UA Bld) 1:53 PM) [facility] [id number] 18:53:00 Test Item Value Reference Range Interpretation Comments POC UA Uro (test code = POC UA Uro) 0.2 0.1-1.0 [facility] [id number] 18:53:00 Test Item Value Reference Range Interpretation Comments POC UA Nit (test code Negative *NA*(03/28/21 = POC UA Nit) 1:53 PM) [facility] [id number] 18:53:00 Test Item Value Reference Range Interpretation Comments POC UA LeukEst (test Negative *NA*(03/28/21 code = POC UA LeukEst) 1:53 PM) [facility] [id number] 18:53:00 Test Item Value Reference Range Interpretation Comments POC UA Color (test Yellow *NA*(03/28/21 code = POC UA Color) 1:53 PM) [facility] [id number] 18:53:00 Test Item Value Reference Range Interpretation Comments POC UA Turbidity (test Clear *NA*(03/28/21 code = POC UA Turbidity) 1:53 PM) [facility] [id number] 18:53:00 Test Item Value Reference Range Interpretation Comments POC UA SG (test code = >=1.030 *ABN*(03/28/21 POC UA SG) 1:53 PM) [facility] [id number] 18:53:00 Test Item Value Reference Range Interpretation Comments POC UA pH (test code = POC UA pH) 5.0 1 5.0-8.0 [facility] [id number] 18:53:00 Test Item Value Reference Range Interpretation Comments POC UA Prot (test code = POC UA 100 mg/dL Prot) [facility] [id number] 18:53:00 Test Item Value Reference Range Interpretation Comments POC UA Glu (test code = POC UA Negative mg/dL Glu) [facility] [id number] 18:53:00 Test Item Value Reference Range Interpretation Comments POC UA Ket (test code = POC UA Negative mg/dL Ket) [facility] [id number] 18:53:00 Test Item Value Reference Range Interpretation Comments POC UA Bili (test code Small *ABN*(03/28/21 = POC UA Bili) 1:53 PM) [facility] [id number] 18:53:00 Test Item Value Reference Range Interpretation Comments POC UA Bld (test code Trace *ABN*(03/28/21 = POC UA Bld) 1:53 PM) [facility] [id number] 18:53:00 Test Item Value Reference Range Interpretation Comments POC UA Uro (test code = POC UA Uro) 0.2 0.1-1.0 [facility] [id number] 18:53:00 Test Item Value Reference Range Interpretation Comments POC UA Nit (test code Negative *NA*(03/28/21 = POC UA Nit) 1:53 PM) [facility] [id number] 18:53:00 Test Item Value Reference Range Interpretation Comments POC UA LeukEst (test Negative *NA*(03/28/21 code = POC UA LeukEst) 1:53 PM) [facility] [id number] 18:53:00 Test Item Value Reference Range Interpretation Comments POC UA Color (test Yellow *NA*(03/28/21 code = POC UA Color) 1:53 PM) [facility] [id number] 18:53:00 Test Item Value Reference Range Interpretation Comments POC UA Turbidity (test Clear *NA*(03/28/21 code = POC UA Turbidity) 1:53 PM) [facility] [id number] 18:53:00 Test Item Value Reference Range Interpretation Comments POC UA SG (test code = >=1.030 *ABN*(03/28/21 POC UA SG) 1:53 PM) [facility] [id number] 18:53:00 Test Item Value Reference Range Interpretation Comments POC UA pH (test code = POC UA pH) 5.0 1 5.0-8.0 [facility] [id number] 18:53:00 Test Item Value Reference Range Interpretation Comments POC UA Prot (test code = POC UA 100 mg/dL Prot) [facility] [id number] 18:53:00 Test Item Value Reference Range Interpretation Comments POC UA Glu (test code = POC UA Negative mg/dL Glu) [facility] [id number] 18:53:00 Test Item Value Reference Range Interpretation Comments POC UA Ket (test code = POC UA Negative mg/dL Ket) [facility] [id number] 18:53:00 Test Item Value Reference Range Interpretation Comments POC UA Bili (test code Small *ABN*(03/28/21 = POC UA Bili) 1:53 PM) [facility] [id number] 18:53:00 Test Item Value Reference Range Interpretation Comments POC UA Bld (test code Trace *ABN*(03/28/21 = POC UA Bld) 1:53 PM) [facility] [id number] 18:53:00 Test Item Value Reference Range Interpretation Comments POC UA Uro (test code = POC UA Uro) 0.2 0.1-1.0 [facility] [id number] 18:53:00 Test Item Value Reference Range Interpretation Comments POC UA Nit (test code Negative *NA*(03/28/21 = POC UA Nit) 1:53 PM) [facility] [id number] 18:53:00 Test Item Value Reference Range Interpretation Comments POC UA LeukEst (test Negative *NA*(03/28/21 code = POC UA LeukEst) 1:53 PM) [facility] [id number] 18:53:00 Test Item Value Reference Range Interpretation Comments POC UA Color (test Yellow *NA*(03/28/21 code = POC UA Color) 1:53 PM) [facility] [id number] 18:53:00 Test Item Value Reference Range Interpretation Comments POC UA Turbidity (test Clear *NA*(03/28/21 code = POC UA Turbidity) 1:53 PM) [facility] [id number] 18:53:00 Test Item Value Reference Range Interpretation Comments POC UA SG (test code = >=1.030 *ABN*(03/28/21 POC UA SG) 1:53 PM) [facility] [id number] 18:53:00 Test Item Value Reference Range Interpretation Comments POC UA pH (test code = POC UA pH) 5.0 1 5.0-8.0 [facility] [id number] 18:53:00 Test Item Value Reference Range Interpretation Comments POC UA Prot (test code = POC UA 100 mg/dL Prot) [facility] [id number] 18:53:00 Test Item Value Reference Range Interpretation Comments POC UA Glu (test code = POC UA Negative mg/dL Glu) [facility] [id number] 18:53:00 Test Item Value Reference Range Interpretation Comments POC UA Ket (test code = POC UA Negative mg/dL Ket) [facility] [id number] 18:53:00 Test Item Value Reference Range Interpretation Comments POC UA Bili (test code Small *ABN*(03/28/21 = POC UA Bili) 1:53 PM) [facility] [id number] 18:53:00 Test Item Value Reference Range Interpretation Comments POC UA Bld (test code Trace *ABN*(03/28/21 = POC UA Bld) 1:53 PM) [facility] [place] [facility] [id number] 18:53:00 Test Item Value Reference Range Interpretation Comments POC UA Uro (test code = POC UA Uro) 0.2 0.1-1.0 [facility] AND [id number] 18:53:00 Test Item Value Reference Range Interpretation Comments POC UA Nit (test code Negative *NA*(03/28/21 = POC UA Nit) 1:53 PM) [facility] AND [id number] 18:53:00 Test Item Value Reference Range Interpretation Comments POC UA LeukEst (test Negative *NA*(03/28/21 code = POC UA LeukEst) 1:53 PM) [facility] AND [id number] 18:53:00 Test Item Value Reference Range Interpretation Comments POC UA Color (test Yellow *NA*(03/28/21 code = POC UA Color) 1:53 PM) [facility] [place] [facility] [id number] 18:53:00 Test Item Value Reference Range Interpretation Comments POC UA Turbidity (test Clear *NA*(03/28/21 code = POC UA Turbidity) 1:53 PM) [facility] [id number] 18:53:00 Test Item Value Reference Range Interpretation Comments POC UA SG (test code = >=1.030 *ABN*(03/28/21 POC UA SG) 1:53 PM) [facility] [place] [facility] [id number] 18:53:00 Test Item Value Reference Range Interpretation Comments POC UA pH (test code = POC UA pH) 5.0 1 5.0-8.0 [facility] [id number] 18:53:00 Test Item Value Reference Range Interpretation Comments POC UA Prot (test code = POC UA 100 mg/dL Prot) [facility] [id number] 18:53:00 Test Item Value Reference Range Interpretation Comments POC UA Glu (test code = POC UA Negative mg/dL Glu) [facility] [id number] 18:53:00 Test Item Value Reference Range Interpretation Comments POC UA Ket (test code = POC UA Negative mg/dL Ket) [facility] [id number] 18:53:00 Test Item Value Reference Range Interpretation Comments POC UA Bili (test code Small *ABN*(03/28/21 = POC UA Bili) 1:53 PM) [facility] [id number] 18:53:00 Test Item Value Reference Range Interpretation Comments POC UA Bld (test code Trace *ABN*(03/28/21 = POC UA Bld) 1:53 PM) [facility] [id number] 18:53:00 Test Item Value Reference Range Interpretation Comments POC UA Uro (test code = POC UA Uro) 0.2 0.1-1.0 [facility] [id number] 18:53:00 Test Item Value Reference Range Interpretation Comments POC UA Nit (test code Negative *NA*(03/28/21 = POC UA Nit) 1:53 PM) [facility] [id number] 18:53:00 Test Item Value Reference Range Interpretation Comments POC UA LeukEst (test Negative *NA*(03/28/21 code = POC UA LeukEst) 1:53 PM) [facility] [id number] 18:53:00 Test Item Value Reference Range Interpretation Comments POC UA Color (test Yellow *NA*(03/28/21 code = POC UA Color) 1:53 PM) [facility] [id number] 18:53:00 Test Item Value Reference Range Interpretation Comments POC UA Turbidity (test Clear *NA*(03/28/21 code = POC UA Turbidity) 1:53 PM) [facility] [id number] 18:53:00 Test Item Value Reference Range Interpretation Comments POC UA SG (test code = >=1.030 *ABN*(03/28/21 POC UA SG) 1:53 PM) [facility] [id number] 18:53:00 Test Item Value Reference Range Interpretation Comments POC UA pH (test code = POC UA pH) 5.0 1 5.0-8.0 [facility] [id number] 18:53:00 Test Item Value Reference Range Interpretation Comments POC UA Prot (test code = POC UA 100 mg/dL Prot) [facility] [id number] 18:53:00 Test Item Value Reference Range Interpretation Comments POC UA Glu (test code = POC UA Negative mg/dL Glu) [facility] [id number] 18:53:00 Test Item Value Reference Range Interpretation Comments POC UA Ket (test code = POC UA Negative mg/dL Ket) [facility] [id number] 18:53:00 Test Item Value Reference Range Interpretation Comments POC UA Bili (test code Small *ABN*(03/28/21 = POC UA Bili) 1:53 PM) [facility] [id number] 18:53:00 Test Item Value Reference Range Interpretation Comments POC UA Bld (test code Trace *ABN*(03/28/21 = POC UA Bld) 1:53 PM) [facility] [id number] 18:53:00 Test Item Value Reference Range Interpretation Comments POC UA Uro (test code = POC UA Uro) 0.2 0.1-1.0 [facility] [id number] 18:53:00 Test Item Value Reference Range Interpretation Comments POC UA Nit (test code Negative *NA*(03/28/21 = POC UA Nit) 1:53 PM) [facility] [id number] 18:53:00 Test Item Value Reference Range Interpretation Comments POC UA LeukEst (test Negative *NA*(03/28/21 code = POC UA LeukEst) 1:53 PM) [facility] [id number] 18:53:00 Test Item Value Reference Range Interpretation Comments POC UA Color (test Yellow *NA*(03/28/21 code = POC UA Color) 1:53 PM) [facility] [id number] 18:53:00 Test Item Value Reference Range Interpretation Comments POC UA Turbidity (test Clear *NA*(03/28/21 code = POC UA Turbidity) 1:53 PM) [facility] [id number] 18:53:00 Test Item Value Reference Range Interpretation Comments POC UA SG (test code = >=1.030 *ABN*(03/28/21 POC UA SG) 1:53 PM) [facility] [id number] 18:53:00 Test Item Value Reference Range Interpretation Comments POC UA pH (test code = POC UA pH) 5.0 1 5.0-8.0 [facility] [id number] 18:53:00 Test Item Value Reference Range Interpretation Comments POC UA Prot (test code = POC UA 100 mg/dL Prot) [facility] [id number] 18:53:00 Test Item Value Reference Range Interpretation Comments POC UA Glu (test code = POC UA Negative mg/dL Glu) [facility] [id number] 18:53:00 Test Item Value Reference Range Interpretation Comments POC UA Ket (test code = POC UA Negative mg/dL Ket) [facility] [id number] 18:53:00 Test Item Value Reference Range Interpretation Comments POC UA Bili (test code Small *ABN*(03/28/21 = POC UA Bili) 1:53 PM) [facility] [id number] 18:53:00 Test Item Value Reference Range Interpretation Comments POC UA Bld (test code Trace *ABN*(03/28/21 = POC UA Bld) 1:53 PM) [facility] [id number] 18:53:00 Test Item Value Reference Range Interpretation Comments POC UA Uro (test code = POC UA Uro) 0.2 0.1-1.0 [facility] [id number] 18:53:00 Test Item Value Reference Range Interpretation Comments POC UA Nit (test code Negative *NA*(03/28/21 = POC UA Nit) 1:53 PM) [facility] [id number] 18:53:00 Test Item Value Reference Range Interpretation Comments POC UA LeukEst (test Negative *NA*(03/28/21 code = POC UA LeukEst) 1:53 PM) [facility] [id number] 18:53:00 Test Item Value Reference Range Interpretation Comments POC UA Color (test Yellow *NA*(03/28/21 code = POC UA Color) 1:53 PM) [facility] [id number] 18:53:00 Test Item Value Reference Range Interpretation Comments POC UA Turbidity (test Clear *NA*(03/28/21 code = POC UA Turbidity) 1:53 PM) [facility] [id number] 18:53:00 Test Item Value Reference Range Interpretation Comments POC UA SG (test code = >=1.030 *ABN*(03/28/21 POC UA SG) 1:53 PM) [facility] [id number] 18:53:00 Test Item Value Reference Range Interpretation Comments POC UA pH (test code = POC UA pH) 5.0 1 5.0-8.0 [facility] [id number] 18:53:00 Test Item Value Reference Range Interpretation Comments POC UA Prot (test code = POC UA 100 mg/dL Prot) [facility] [id number] 18:53:00 Test Item Value Reference Range Interpretation Comments POC UA Glu (test code = POC UA Negative mg/dL Glu) [facility] [id number] 18:53:00 Test Item Value Reference Range Interpretation Comments POC UA Ket (test code = POC UA Negative mg/dL Ket) [facility] [id number] 18:53:00 Test Item Value Reference Range Interpretation Comments POC UA Bili (test code Small *ABN*(03/28/21 = POC UA Bili) 1:53 PM) [facility] [id number] 18:53:00 Test Item Value Reference Range Interpretation Comments POC UA Bld (test code Trace *ABN*(03/28/21 = POC UA Bld) 1:53 PM) [facility] [id number] 18:53:00 Test Item Value Reference Range Interpretation Comments POC UA Uro (test code = POC UA Uro) 0.2 0.1-1.0 [facility] [id number] [facility] Test Item Value Reference Range Interpretation Comments POC UA Nit (test code Negative *NA*(03/28/21 = POC UA Nit) 1:53 PM) [facility] [id number] 18:53:00 Test Item Value Reference Range Interpretation Comments POC UA LeukEst (test Negative *NA*(03/28/21 code = POC UA LeukEst) 1:53 PM) [facility] [id number] 18:53:00 Test Item Value Reference Range Interpretation Comments POC UA Color (test Yellow *NA*(03/28/21 code = POC UA Color) 1:53 PM) [facility] [id number] 18:53:00 Test Item Value Reference Range Interpretation Comments POC UA Turbidity (test Clear *NA*(03/28/21 code = POC UA Turbidity) 1:53 PM) [facility] [id number] 18:53:00 Test Item Value Reference Range Interpretation Comments POC UA SG (test code = >=1.030 *ABN*(03/28/21 POC UA SG) 1:53 PM) [facility] [id number] 18:53:00 Test Item Value Reference Range Interpretation Comments POC UA pH (test code = POC UA pH) 5.0 1 5.0-8.0 [facility] [id number] 18:53:00 Test Item Value Reference Range Interpretation Comments POC UA Prot (test code = POC UA 100 mg/dL Prot) [facility] [id number] 18:53:00 Test Item Value Reference Range Interpretation Comments POC UA Glu (test code = POC UA Negative mg/dL Glu) [facility] [id number] 18:53:00 Test Item Value Reference Range Interpretation Comments POC UA Ket (test code = POC UA Negative mg/dL Ket) [facility] [id number] 18:53:00 Test Item Value Reference Range Interpretation Comments POC UA Bili (test code Small *ABN*(03/28/21 = POC UA Bili) 1:53 PM) [facility] [id number] 18:53:00 Test Item Value Reference Range Interpretation Comments POC UA Bld (test code Trace *ABN*(03/28/21 = POC UA Bld) 1:53 PM) [facility] [id number] 18:53:00 Test Item Value Reference Range Interpretation Comments POC UA Uro (test code = POC UA Uro) 0.2 0.1-1.0 [facility] [id number] 18:53:00 Test Item Value Reference Range Interpretation Comments POC UA Nit (test code Negative *NA*(03/28/21 = POC UA Nit) 1:53 PM) [facility] [id number] 18:53:00 Test Item Value Reference Range Interpretation Comments POC UA LeukEst (test Negative *NA*(03/28/21 code = POC UA LeukEst) 1:53 PM) [facility] [id number] 18:53:00 Test Item Value Reference Range Interpretation Comments POC UA Color (test Yellow *NA*(03/28/21 code = POC UA Color) 1:53 PM) [facility] [id number] 18:53:00 Test Item Value Reference Range Interpretation Comments POC UA Turbidity (test Clear *NA*(03/28/21 code = POC UA Turbidity) 1:53 PM) [facility] [id number] 18:53:00 Test Item Value Reference Range Interpretation Comments POC UA SG (test code = >=1.030 *ABN*(03/28/21 POC UA SG) 1:53 PM) [facility] [id number] 18:53:00 Test Item Value Reference Range Interpretation Comments POC UA pH (test code = POC UA pH) 5.0 1 5.0-8.0 [facility] [id number] 18:53:00 Test Item Value Reference Range Interpretation Comments POC UA Prot (test code = POC UA 100 mg/dL Prot) [facility] [id number] 18:53:00 Test Item Value Reference Range Interpretation Comments POC UA Glu (test code = POC UA Negative mg/dL Glu) [facility] [id number] 18:53:00 Test Item Value Reference Range Interpretation Comments POC UA Ket (test code = POC UA Negative mg/dL Ket) [facility] [id number] 18:53:00 Test Item Value Reference Range Interpretation Comments POC UA Bili (test code Small *ABN*(03/28/21 = POC UA Bili) 1:53 PM) [facility] [id number] 18:53:00 Test Item Value Reference Range Interpretation Comments POC UA Bld (test code Trace *ABN*(03/28/21 = POC UA Bld) 1:53 PM) [facility] [id number] 18:53:00 Test Item Value Reference Range Interpretation Comments POC UA Uro (test code = POC UA Uro) 0.2 0.1-1.0 [facility] [id number] 18:53:00 Test Item Value Reference Range Interpretation Comments POC UA Nit (test code Negative *NA*(03/28/21 = POC UA Nit) 1:53 PM) [facility] [id number] 18:53:00 Test Item Value Reference Range Interpretation Comments POC UA LeukEst (test Negative *NA*(03/28/21 code = POC UA LeukEst) 1:53 PM) [facility] [id number] 18:53:00 Test Item Value Reference Range Interpretation Comments POC UA Color (test Yellow *NA*(03/28/21 code = POC UA Color) 1:53 PM) [facility] [id number] 18:53:00 Test Item Value Reference Range Interpretation Comments POC UA Turbidity (test Clear *NA*(03/28/21 code = POC UA Turbidity) 1:53 PM) [facility] [id number] 18:53:00 Test Item Value Reference Range Interpretation Comments POC UA SG (test code = >=1.030 *ABN*(03/28/21 POC UA SG) 1:53 PM) [facility] [id number] 18:53:00 Test Item Value Reference Range Interpretation Comments POC UA pH (test code = POC UA pH) 5.0 1 5.0-8.0 [facility] [id number] 18:53:00 Test Item Value Reference Range Interpretation Comments POC UA Prot (test code = POC UA 100 mg/dL Prot) [facility] [id number] 18:53:00 Test Item Value Reference Range Interpretation Comments POC UA Glu (test code = POC UA Negative mg/dL Glu) [facility] [id number] 18:53:00 Test Item Value Reference Range Interpretation Comments POC UA Ket (test code = POC UA Negative mg/dL Ket) [facility] [id number] 18:53:00 Test Item Value Reference Range Interpretation Comments POC UA Bili (test code Small *ABN*(03/28/21 = POC UA Bili) 1:53 PM) [facility] [id number] 18:53:00 Test Item Value Reference Range Interpretation Comments POC UA Bld (test code Trace *ABN*(03/28/21 = POC UA Bld) 1:53 PM) [facility] [id number] 18:53:00 Test Item Value Reference Range Interpretation Comments POC UA Uro (test code = POC UA Uro) 0.2 0.1-1.0 [facility] [id number] 18:53:00 Test Item Value Reference Range Interpretation Comments POC UA Nit (test code Negative *NA*(03/28/21 = POC UA Nit) 1:53 PM) [facility] [id number] 18:53:00 Test Item Value Reference Range Interpretation Comments POC UA LeukEst (test Negative *NA*(03/28/21 code = POC UA LeukEst) 1:53 PM) [facility] [id number] 18:53:00 Test Item Value Reference Range Interpretation Comments POC UA Color (test Yellow *NA*(03/28/21 code = POC UA Color) 1:53 PM) [facility] [id number] 18:53:00 Test Item Value Reference Range Interpretation Comments POC UA Turbidity (test Clear *NA*(03/28/21 code = POC UA Turbidity) 1:53 PM) [facility] [id number] 18:53:00 Test Item Value Reference Range Interpretation Comments POC UA SG (test code = >=1.030 *ABN*(03/28/21 POC UA SG) 1:53 PM) [facility] [id number] 18:53:00 Test Item Value Reference Range Interpretation Comments POC UA pH (test code = POC UA pH) 5.0 1 5.0-8.0 [facility] [id number] 18:53:00 Test Item Value Reference Range Interpretation Comments POC UA Prot (test code = POC UA 100 mg/dL Prot) [facility] [id number] 18:53:00 Test Item Value Reference Range Interpretation Comments POC UA Glu (test code = POC UA Negative mg/dL Glu) [facility] [id number] 18:53:00 Test Item Value Reference Range Interpretation Comments POC UA Ket (test code = POC UA Negative mg/dL Ket) [facility] [id number] 18:53:00 Test Item Value Reference Range Interpretation Comments POC UA Bili (test code Small *ABN*(03/28/21 = POC UA Bili) 1:53 PM) [facility] [id number] 18:53:00 Test Item Value Reference Range Interpretation Comments POC UA Bld (test code Trace *ABN*(03/28/21 = POC UA Bld) 1:53 PM) [facility] [id number] 18:53:00 Test Item Value Reference Range Interpretation Comments POC UA Uro (test code = POC UA Uro) 0.2 0.1-1.0 [facility] [place] [facility] [id number] 18:53:00 Test Item Value Reference Range Interpretation Comments POC UA Nit (test code Negative *NA*(03/28/21 = POC UA Nit) 1:53 PM) [facility] [id number] 18:53:00 Test Item Value Reference Range Interpretation Comments POC UA LeukEst (test Negative *NA*(03/28/21 code = POC UA LeukEst) 1:53 PM) [facility] [id number] 18:53:00 Test Item Value Reference Range Interpretation Comments POC UA Color (test Yellow *NA*(03/28/21 code = POC UA Color) 1:53 PM) [facility] [id number] 18:53:00 Test Item Value Reference Range Interpretation Comments POC UA Turbidity (test Clear *NA*(03/28/21 code = POC UA Turbidity) 1:53 PM) [facility] [id number] 18:53:00 Test Item Value Reference Range Interpretation Comments POC UA SG (test code = >=1.030 *ABN*(03/28/21 POC UA SG) 1:53 PM) [facility] [id number] 18:53:00 Test Item Value Reference Range Interpretation Comments POC UA pH (test code = POC UA pH) 5.0 1 5.0-8.0 [facility] [id number] 18:53:00 Test Item Value Reference Range Interpretation Comments POC UA Prot (test code = POC UA 100 mg/dL Prot) [facility] [id number] 18:53:00 Test Item Value Reference Range Interpretation Comments POC UA Glu (test code = POC UA Negative mg/dL Glu) [facility] [id number] 18:53:00 Test Item Value Reference Range Interpretation Comments POC UA Ket (test code = POC UA Negative mg/dL Ket) [facility] [id number] 18:53:00 Test Item Value Reference Range Interpretation Comments POC UA Bili (test code Small *ABN*(03/28/21 = POC UA Bili) 1:53 PM) [facility] [id number] 18:53:00 Test Item Value Reference Range Interpretation Comments POC UA Bld (test code Trace *ABN*(03/28/21 = POC UA Bld) 1:53 PM) [facility] [id number] 18:53:00 Test Item Value Reference Range Interpretation Comments POC UA Uro (test code = POC UA Uro) 0.2 0.1-1.0 [facility] [id number] 18:53:00 Test Item Value Reference Range Interpretation Comments POC UA Nit (test code Negative *NA*(03/28/21 = POC UA Nit) 1:53 PM) [facility] [id number] 18:53:00 Test Item Value Reference Range Interpretation Comments POC UA LeukEst (test Negative *NA*(03/28/21 code = POC UA LeukEst) 1:53 PM) [facility] [id number] 18:53:00 Test Item Value Reference Range Interpretation Comments POC UA Color (test Yellow *NA*(03/28/21 code = POC UA Color) 1:53 PM) [facility] [id number] 18:53:00 Test Item Value Reference Range Interpretation Comments POC UA Turbidity (test Clear *NA*(03/28/21 code = POC UA Turbidity) 1:53 PM) [facility] [id number] 18:53:00 Test Item Value Reference Range Interpretation Comments POC UA SG (test code = >=1.030 *ABN*(03/28/21 POC UA SG) 1:53 PM) [facility] [id number] 18:53:00 Test Item Value Reference Range Interpretation Comments POC UA pH (test code = POC UA pH) 5.0 1 5.0-8.0 [facility] [id number] 18:53:00 Test Item Value Reference Range Interpretation Comments POC UA Prot (test code = POC UA 100 mg/dL Prot) [facility] [id number] 18:53:00 Test Item Value Reference Range Interpretation Comments POC UA Glu (test code = POC UA Negative mg/dL Glu) [facility] [id number] 18:53:00 Test Item Value Reference Range Interpretation Comments POC UA Ket (test code = POC UA Negative mg/dL Ket) [facility] [id number] 18:53:00 Test Item Value Reference Range Interpretation Comments POC UA Bili (test code Small *ABN*(03/28/21 = POC UA Bili) 1:53 PM) [facility] [id number] 18:53:00 Test Item Value Reference Range Interpretation Comments POC UA Bld (test code Trace *ABN*(03/28/21 = POC UA Bld) 1:53 PM) [facility] [id number] 18:53:00 Test Item Value Reference Range Interpretation Comments POC UA Uro (test code = POC UA Uro) 0.2 0.1-1.0 [facility] [id number] 18:53:00 Test Item Value Reference Range Interpretation Comments POC UA Nit (test code Negative *NA*(03/28/21 = POC UA Nit) 1:53 PM) [facility] [id number] 18:53:00 Test Item Value Reference Range Interpretation Comments POC UA LeukEst (test Negative *NA*(03/28/21 code = POC UA LeukEst) 1:53 PM) [facility] [id number] 18:53:00 Test Item Value Reference Range Interpretation Comments POC UA Color (test Yellow *NA*(03/28/21 code = POC UA Color) 1:53 PM) [facility] [id number] 18:53:00 Test Item Value Reference Range Interpretation Comments POC UA Turbidity (test Clear *NA*(03/28/21 code = POC UA Turbidity) 1:53 PM) [facility] [id number] 18:53:00 Test Item Value Reference Range Interpretation Comments POC UA SG (test code = >=1.030 *ABN*(03/28/21 POC UA SG) 1:53 PM) [facility] [id number] 18:53:00 Test Item Value Reference Range Interpretation Comments POC UA pH (test code = POC UA pH) 5.0 1 5.0-8.0 [facility] [id number] 18:53:00 Test Item Value Reference Range Interpretation Comments POC UA Prot (test code = POC UA 100 mg/dL Prot) [facility] [id number] 18:53:00 Test Item Value Reference Range Interpretation Comments POC UA Glu (test code = POC UA Negative mg/dL Glu) [facility] [id number] 18:53:00 Test Item Value Reference Range Interpretation Comments POC UA Ket (test code = POC UA Negative mg/dL Ket) [facility] [id number] 18:53:00 Test Item Value Reference Range Interpretation Comments POC UA Bili (test code Small *ABN*(03/28/21 = POC UA Bili) 1:53 PM) [facility] [id number] 18:53:00 Test Item Value Reference Range Interpretation Comments POC UA Bld (test code Trace *ABN*(03/28/21 = POC UA Bld) 1:53 PM) [facility] [id number] 18:53:00 Test Item Value Reference Range Interpretation Comments POC UA Uro (test code = POC UA Uro) 0.2 0.1-1.0 [facility] [id number] 18:53:00 Test Item Value Reference Range Interpretation Comments POC UA Nit (test code Negative *NA*(03/28/21 = POC UA Nit) 1:53 PM) [facility] [id number] 18:53:00 Test Item Value Reference Range Interpretation Comments POC UA LeukEst (test Negative *NA*(03/28/21 code = POC UA LeukEst) 1:53 PM) [facility] [id number] 18:53:00 Test Item Value Reference Range Interpretation Comments POC UA Color (test Yellow *NA*(03/28/21 code = POC UA Color) 1:53 PM) [facility] [id number] 18:53:00 Test Item Value Reference Range Interpretation Comments POC UA Turbidity (test Clear *NA*(03/28/21 code = POC UA Turbidity) 1:53 PM) [facility] [id number] 18:53:00 Test Item Value Reference Range Interpretation Comments POC UA SG (test code = >=1.030 *ABN*(03/28/21 POC UA SG) 1:53 PM) [facility] [id number] 18:53:00 Test Item Value Reference Range Interpretation Comments POC UA pH (test code = POC UA pH) 5.0 1 5.0-8.0 [facility] [id number] 18:53:00 Test Item Value Reference Range Interpretation Comments POC UA Prot (test code = POC UA 100 mg/dL Prot) [facility] [id number] 18:53:00 Test Item Value Reference Range Interpretation Comments POC UA Glu (test code = POC UA Negative mg/dL Glu) [facility] [id number] 18:53:00 Test Item Value Reference Range Interpretation Comments POC UA Ket (test code = POC UA Negative mg/dL Ket) [facility] [id number] 18:53:00 Test Item Value Reference Range Interpretation Comments POC UA Bili (test code Small *ABN*(03/28/21 = POC UA Bili) 1:53 PM) [facility] [id number] 18:53:00 Test Item Value Reference Range Interpretation Comments POC UA Bld (test code Trace *ABN*(03/28/21 = POC UA Bld) 1:53 PM) [facility] [id number] 18:53:00 Test Item Value Reference Range Interpretation Comments POC UA Uro (test code = POC UA Uro) 0.2 0.1-1.0 [facility] [id number] 18:53:00 Test Item Value Reference Range Interpretation Comments POC UA Nit (test code Negative *NA*(03/28/21 = POC UA Nit) 1:53 PM) [facility] [id number] 18:53:00 Test Item Value Reference Range Interpretation Comments POC UA LeukEst (test Negative *NA*(03/28/21 code = POC UA LeukEst) 1:53 PM) [facility] [id number] 18:53:00 Test Item Value Reference Range Interpretation Comments POC UA Color (test Yellow *NA*(03/28/21 code = POC UA Color) 1:53 PM) [facility] [id number] 18:53:00 Test Item Value Reference Range Interpretation Comments POC UA Turbidity (test Clear *NA*(03/28/21 code = POC UA Turbidity) 1:53 PM) [facility] [id number] 18:53:00 Test Item Value Reference Range Interpretation Comments POC UA SG (test code = >=1.030 *ABN*(03/28/21 POC UA SG) 1:53 PM) [facility] [id number] 18:53:00 Test Item Value Reference Range Interpretation Comments POC UA pH (test code = POC UA pH) 5.0 1 5.0-8.0 [facility] [id number] 18:53:00 Test Item Value Reference Range Interpretation Comments POC UA Prot (test code = POC UA 100 mg/dL Prot) [facility] [id number] 18:53:00 Test Item Value Reference Range Interpretation Comments POC UA Glu (test code = POC UA Negative mg/dL Glu) [facility] [id number] 18:53:00 Test Item Value Reference Range Interpretation Comments POC UA Ket (test code = POC UA Negative mg/dL Ket) [facility] [id number] 18:53:00 Test Item Value Reference Range Interpretation Comments POC UA Bili (test code Small *ABN*(03/28/21 = POC UA Bili) 1:53 PM) [facility] [id number] 18:53:00 Test Item Value Reference Range Interpretation Comments POC UA Bld (test code Trace *ABN*(03/28/21 = POC UA Bld) 1:53 PM) [facility] [id number] 18:53:00 Test Item Value Reference Range Interpretation Comments POC UA Uro (test code = POC UA Uro) 0.2 0.1-1.0 [facility] [id number] 18:53:00 Test Item Value Reference Range Interpretation Comments POC UA Nit (test code Negative *NA*(03/28/21 = POC UA Nit) 1:53 PM) [facility] [id number] 18:53:00 Test Item Value Reference Range Interpretation Comments POC UA LeukEst (test Negative *NA*(03/28/21 code = POC UA LeukEst) 1:53 PM) [facility] [id number] 18:53:00 Test Item Value Reference Range Interpretation Comments POC UA Color (test Yellow *NA*(03/28/21 code = POC UA Color) 1:53 PM) [facility] [id number] 18:53:00 Test Item Value Reference Range Interpretation Comments POC UA Turbidity (test Clear *NA*(03/28/21 code = POC UA Turbidity) 1:53 PM) [facility] [id number] 18:53:00 Test Item Value Reference Range Interpretation Comments POC UA SG (test code = >=1.030 *ABN*(03/28/21 POC UA SG) 1:53 PM) [facility] [id number] 18:53:00 Test Item Value Reference Range Interpretation Comments POC UA pH (test code = POC UA pH) 5.0 1 5.0-8.0 [facility] [id number] 18:53:00 Test Item Value Reference Range Interpretation Comments POC UA Prot (test code = POC UA 100 mg/dL Prot) [facility] [id number] 18:53:00 Test Item Value Reference Range Interpretation Comments POC UA Glu (test code = POC UA Negative mg/dL Glu) [facility] [id number] 18:53:00 Test Item Value Reference Range Interpretation Comments POC UA Ket (test code = POC UA Negative mg/dL Ket) [facility] [id number] 18:53:00 Test Item Value Reference Range Interpretation Comments POC UA Bili (test code Small *ABN*(03/28/21 = POC UA Bili) 1:53 PM) [facility] [id number] 18:53:00 Test Item Value Reference Range Interpretation Comments POC UA Bld (test code Trace *ABN*(03/28/21 = POC UA Bld) 1:53 PM) [facility] [id number] 18:53:00 Test Item Value Reference Range Interpretation Comments POC UA Uro (test code = POC UA Uro) 0.2 0.1-1.0 [facility] [id number] 18:53:00 Test Item Value Reference Range Interpretation Comments POC UA Nit (test code Negative *NA*(03/28/21 = POC UA Nit) 1:53 PM) [facility] [id number] 18:53:00 Test Item Value Reference Range Interpretation Comments POC UA LeukEst (test Negative *NA*(03/28/21 code = POC UA LeukEst) 1:53 PM) [facility] [id number] 18:53:00 Test Item Value Reference Range Interpretation Comments POC UA Color (test Yellow *NA*(03/28/21 code = POC UA Color) 1:53 PM) [facility] [id number] 18:53:00 Test Item Value Reference Range Interpretation Comments POC UA Turbidity (test Clear *NA*(03/28/21 code = POC UA Turbidity) 1:53 PM) [facility] [id number] 18:53:00 Test Item Value Reference Range Interpretation Comments POC UA SG (test code = >=1.030 *ABN*(03/28/21 POC UA SG) 1:53 PM) [facility] [id number] 18:53:00 Test Item Value Reference Range Interpretation Comments POC UA pH (test code = POC UA pH) 5.0 1 5.0-8.0 [facility] [id number] 18:53:00 Test Item Value Reference Range Interpretation Comments POC UA Prot (test code = POC UA 100 mg/dL Prot) [facility] [id number] 18:53:00 Test Item Value Reference Range Interpretation Comments POC UA Glu (test code = POC UA Negative mg/dL Glu) [facility] [id number] 18:53:00 Test Item Value Reference Range Interpretation Comments POC UA Ket (test code = POC UA Negative mg/dL Ket) [facility] [id number] 18:53:00 Test Item Value Reference Range Interpretation Comments POC UA Bili (test code Small *ABN*(03/28/21 = POC UA Bili) 1:53 PM) [facility] [id number] 18:53:00 Test Item Value Reference Range Interpretation Comments POC UA Bld (test code Trace *ABN*(03/28/21 = POC UA Bld) 1:53 PM) [facility] [id number] 18:53:00 Test Item Value Reference Range Interpretation Comments POC UA Uro (test code = POC UA Uro) 0.2 0.1-1.0 [facility] [id number] 18:53:00 Test Item Value Reference Range Interpretation Comments POC UA Nit (test code Negative *NA*(03/28/21 = POC UA Nit) 1:53 PM) [facility] [id number] 18:53:00 Test Item Value Reference Range Interpretation Comments POC UA LeukEst (test Negative *NA*(03/28/21 code = POC UA LeukEst) 1:53 PM) [facility] [id number] 18:53:00 Test Item Value Reference Range Interpretation Comments POC UA Color (test Yellow *NA*(03/28/21 code = POC UA Color) 1:53 PM) [facility] [id number] 18:53:00 Test Item Value Reference Range Interpretation Comments POC UA Turbidity (test Clear *NA*(03/28/21 code = POC UA Turbidity) 1:53 PM) [facility] [id number] 18:53:00 Test Item Value Reference Range Interpretation Comments POC UA SG (test code = >=1.030 *ABN*(03/28/21 POC UA SG) 1:53 PM) [facility] [id number] 18:53:00 Test Item Value Reference Range Interpretation Comments POC UA pH (test code = POC UA pH) 5.0 1 5.0-8.0 [facility] [id number] 18:53:00 Test Item Value Reference Range Interpretation Comments POC UA Prot (test code = POC UA 100 mg/dL Prot) [facility] [id number] 18:53:00 Test Item Value Reference Range Interpretation Comments POC UA Glu (test code = POC UA Negative mg/dL Glu) [facility] [id number] 18:53:00 Test Item Value Reference Range Interpretation Comments POC UA Ket (test code = POC UA Negative mg/dL Ket) [facility] [id number] 18:53:00 Test Item Value Reference Range Interpretation Comments POC UA Bili (test code Small *ABN*(03/28/21 = POC UA Bili) 1:53 PM) [facility] [id number] [facility] Test Item Value Reference Range Interpretation Comments POC UA Bld (test code Trace *ABN*(03/28/21 = POC UA Bld) 1:53 PM) [facility] [id number] 18:53:00 Test Item Value Reference Range Interpretation Comments POC UA Uro (test code = POC UA Uro) 0.2 0.1-1.0 [facility] [id number] 18:53:00 Test Item Value Reference Range Interpretation Comments POC UA Nit (test code Negative *NA*(03/28/21 = POC UA Nit) 1:53 PM) [facility] [id number] 18:53:00 Test Item Value Reference Range Interpretation Comments POC UA LeukEst (test Negative *NA*(03/28/21 code = POC UA LeukEst) 1:53 PM) [facility] [id number] 18:53:00Yellow *NA*(03/28/21 1:53 PM) [facility] [id number] 18:53:00Clear *NA*(03/28/21 1:53 PM) [facility] [id number] 18:53:00>=1.030 *ABN*(03/28/21 1:53 PM)[facility] [id number] 18:53:00 Test Item Value Reference Range Interpretation Comments POC UA pH (test code = POC UA pH) 5.0 1 5.0-8.0 [facility] [id number] 18:53:00 Test Item Value Reference Range Interpretation Comments POC UA Color (test Yellow *NA*(03/28/21 code = POC UA Color) 1:53 PM) [facility] [id number] 18:53:00 Test Item Value Reference Range Interpretation Comments POC UA Turbidity (test Clear *NA*(03/28/21 code = POC UA Turbidity) 1:53 PM) [facility] [id number] 18:53:00 Test Item Value Reference Range Interpretation Comments POC UA SG (test code = >=1.030 *ABN*(03/28/21 POC UA SG) 1:53 PM) [facility] [id number] 18:53:00 Test Item Value Reference Range Interpretation Comments POC UA pH (test code = POC UA pH) 5.0 1 5.0-8.0 [facility] [id number] 18:53:00 Test Item Value Reference Range Interpretation Comments POC UA Prot (test code = POC UA 100 mg/dL Prot) [facility] [id number] 18:53:00 Test Item Value Reference Range Interpretation Comments POC UA Glu (test code = POC UA Negative mg/dL Glu) [facility] [id number] 18:53:00 Test Item Value Reference Range Interpretation Comments POC UA Ket (test code = POC UA Negative mg/dL Ket) [facility] [id number] 18:53:00 Test Item Value Reference Range Interpretation Comments POC UA Bili (test code Small *ABN*(03/28/21 = POC UA Bili) 1:53 PM) [facility] [id number] 18:53:00 Test Item Value Reference Range Interpretation Comments POC UA Bld (test code Trace *ABN*(03/28/21 = POC UA Bld) 1:53 PM) [facility] [id number] 18:53:00 Test Item Value Reference Range Interpretation Comments POC UA Uro (test code = POC UA Uro) 0.2 0.1-1.0 [facility] [id number] 18:53:00 Test Item Value Reference Range Interpretation Comments POC UA Nit (test code Negative *NA*(03/28/21 = POC UA Nit) 1:53 PM) [facility] [id number] 18:53:00 Test Item Value Reference Range Interpretation Comments POC UA LeukEst (test Negative *NA*(03/28/21 code = POC UA LeukEst) 1:53 PM) [facility] [id number] 18:53:00Small *ABN*(03/28/21 1:53 PM) [facility] [id number] 18:53:00 Test Item Value Reference Range Interpretation Comments POC UA Color (test Yellow *NA*(03/28/21 code = POC UA Color) 1:53 PM) [facility] [id number] 18:53:00 Test Item Value Reference Range Interpretation Comments POC UA Turbidity (test Clear *NA*(03/28/21 code = POC UA Turbidity) 1:53 PM) [facility] [id number] 18:53:00 Test Item Value Reference Range Interpretation Comments POC UA SG (test code = >=1.030 *ABN*(03/28/21 POC UA SG) 1:53 PM) [facility] [id number] 18:53:00 Test Item Value Reference Range Interpretation Comments POC UA pH (test code = POC UA pH) 5.0 1 5.0-8.0 [facility] [id number] 18:53:00 Test Item Value Reference Range Interpretation Comments POC UA Prot (test code = POC UA 100 mg/dL Prot) [facility] [id number] 18:53:00 Test Item Value Reference Range Interpretation Comments POC UA Glu (test code = POC UA Negative mg/dL Glu) [facility] [id number] 18:53:00 Test Item Value Reference Range Interpretation Comments POC UA Ket (test code = POC UA Negative mg/dL Ket) [facility] [id number] 18:53:00 Test Item Value Reference Range Interpretation Comments POC UA Bili (test code Small *ABN*(03/28/21 = POC UA Bili) 1:53 PM) [facility] [id number] 18:53:00 Test Item Value Reference Range Interpretation Comments POC UA Bld (test code Trace *ABN*(03/28/21 = POC UA Bld) 1:53 PM) [facility] [id number] 18:53:00 Test Item Value Reference Range Interpretation Comments POC UA Uro (test code = POC UA Uro) 0.2 0.1-1.0 [facility] [id number] 18:53:00 Test Item Value Reference Range Interpretation Comments POC UA Nit (test code Negative *NA*(03/28/21 = POC UA Nit) 1:53 PM) [facility] [id number] 18:53:00 Test Item Value Reference Range Interpretation Comments POC UA LeukEst (test Negative *NA*(03/28/21 code = POC UA LeukEst) 1:53 PM) [facility] [id number] 18:53:00Trace *ABN*(03/28/21 1:53 PM) [facility] [id number] 18:53:000.2[facility] [id number] 18:53:00Negative *NA*(03/28/21 1:53 PM)[facility] [id number] 18:53:00Negative *NA*(03/28/21 1:53 PM)[facility] [id number] 18:53:00 Test Item Value Reference Range Interpretation Comments POC UA Color (test Yellow *NA*(03/28/21 code = POC UA Color) 1:53 PM) [facility] [id number] 18:53:00 Test Item Value Reference Range Interpretation Comments POC UA Turbidity (test Clear *NA*(03/28/21 code = POC UA Turbidity) 1:53 PM) [facility] [id number] 18:53:00 Test Item Value Reference Range Interpretation Comments POC UA SG (test code = >=1.030 *ABN*(03/28/21 POC UA SG) 1:53 PM) [facility] [id number] 18:53:00 Test Item Value Reference Range Interpretation Comments POC UA pH (test code = POC UA pH) 5.0 1 5.0-8.0 [facility] [id number] 18:53:00 Test Item Value Reference Range Interpretation Comments POC UA Prot (test code = POC UA 100 mg/dL Prot) [facility] [id number] 18:53:00 Test Item Value Reference Range Interpretation Comments POC UA Glu (test code = POC UA Negative mg/dL Glu) [facility] [id number] 18:53:00 Test Item Value Reference Range Interpretation Comments POC UA Ket (test code = POC UA Negative mg/dL Ket) [facility] [id number] 18:53:00 Test Item Value Reference Range Interpretation Comments POC UA Bili (test code Small *ABN*(03/28/21 = POC UA Bili) 1:53 PM) [facility] [id number] 18:53:00 Test Item Value Reference Range Interpretation Comments POC UA Bld (test code Trace *ABN*(03/28/21 = POC UA Bld) 1:53 PM) [facility] [id number] 18:53:00 Test Item Value Reference Range Interpretation Comments POC UA Uro (test code = POC UA Uro) 0.2 0.1-1.0 [facility] [id number] 18:53:00 Test Item Value Reference Range Interpretation Comments POC UA Nit (test code Negative *NA*(03/28/21 = POC UA Nit) 1:53 PM) [facility] [id number] 18:53:00 Test Item Value Reference Range Interpretation Comments POC UA LeukEst (test Negative *NA*(03/28/21 code = POC UA LeukEst) 1:53 PM) [facility] [id number] 18:53:00 Test Item Value Reference Range Interpretation Comments POC UA Color (test Yellow *NA*(03/28/21 code = POC UA Color) 1:53 PM) [facility] [id number] 18:53:00 Test Item Value Reference Range Interpretation Comments POC UA Turbidity (test Clear *NA*(03/28/21 code = POC UA Turbidity) 1:53 PM) [facility] [id number] 18:53:00 Test Item Value Reference Range Interpretation Comments POC UA SG (test code = >=1.030 *ABN*(03/28/21 POC UA SG) 1:53 PM) [facility] [id number] 18:53:00 Test Item Value Reference Range Interpretation Comments POC UA pH (test code = POC UA pH) 5.0 1 5.0-8.0 [facility] [id number] 18:53:00 Test Item Value Reference Range Interpretation Comments POC UA Prot (test code = POC UA 100 mg/dL Prot) [facility] [id number] 18:53:00 Test Item Value Reference Range Interpretation Comments POC UA Glu (test code = POC UA Negative mg/dL Glu) [facility] [id number] 18:53:00 Test Item Value Reference Range Interpretation Comments POC UA Ket (test code = POC UA Negative mg/dL Ket) [facility] [id number] 18:53:00 Test Item Value Reference Range Interpretation Comments POC UA Bili (test code Small *ABN*(03/28/21 = POC UA Bili) 1:53 PM) [facility] [id number] 18:53:00 Test Item Value Reference Range Interpretation Comments POC UA Bld (test code Trace *ABN*(03/28/21 = POC UA Bld) 1:53 PM) [facility] [id number] 18:53:00 Test Item Value Reference Range Interpretation Comments POC UA Uro (test code = POC UA Uro) 0.2 0.1-1.0 [facility] [id number] 18:53:00 Test Item Value Reference Range Interpretation Comments POC UA Nit (test code Negative *NA*(03/28/21 = POC UA Nit) 1:53 PM) [facility] [id number] 18:53:00 Test Item Value Reference Range Interpretation Comments POC UA LeukEst (test Negative *NA*(03/28/21 code = POC UA LeukEst) 1:53 PM) [facility] [id number] 18:53:00 Test Item Value Reference Range Interpretation Comments POC UA Color (test Yellow *NA*(03/28/21 code = POC UA Color) 1:53 PM) [facility] [id number] 18:53:00 Test Item Value Reference Range Interpretation Comments POC UA Turbidity (test Clear *NA*(03/28/21 code = POC UA Turbidity) 1:53 PM) [facility] [id number] 18:53:00 Test Item Value Reference Range Interpretation Comments POC UA SG (test code = >=1.030 *ABN*(03/28/21 POC UA SG) 1:53 PM) [facility] [id number] 18:53:00 Test Item Value Reference Range Interpretation Comments POC UA pH (test code = POC UA pH) 5.0 1 5.0-8.0 [facility] [id number] 18:53:00 Test Item Value Reference Range Interpretation Comments POC UA Prot (test code = POC UA 100 mg/dL Prot) [facility] [id number] 18:53:00 Test Item Value Reference Range Interpretation Comments POC UA Glu (test code = POC UA Negative mg/dL Glu) [facility] [id number] 18:53:00 Test Item Value Reference Range Interpretation Comments POC UA Ket (test code = POC UA Negative mg/dL Ket) [facility] [id number] 18:53:00 Test Item Value Reference Range Interpretation Comments POC UA Bili (test code Small *ABN*(03/28/21 = POC UA Bili) 1:53 PM) [facility] [id number] 18:53:00 Test Item Value Reference Range Interpretation Comments POC UA Bld (test code Trace *ABN*(03/28/21 = POC UA Bld) 1:53 PM) [facility] [id number] 18:53:00 Test Item Value Reference Range Interpretation Comments POC UA Uro (test code = POC UA Uro) 0.2 0.1-1.0 [facility] [id number] 18:53:00 Test Item Value Reference Range Interpretation Comments POC UA Nit (test code Negative *NA*(03/28/21 = POC UA Nit) 1:53 PM) [facility] [id number] 18:53:00 Test Item Value Reference Range Interpretation Comments POC UA LeukEst (test Negative *NA*(03/28/21 code = POC UA LeukEst) 1:53 PM) [facility] [id number] 18:53:00 Test Item Value Reference Range Interpretation Comments POC UA Color (test Yellow *NA*(03/28/21 code = POC UA Color) 1:53 PM) [facility] [id number] 18:53:00 Test Item Value Reference Range Interpretation Comments POC UA Turbidity (test Clear *NA*(03/28/21 code = POC UA Turbidity) 1:53 PM) [facility] [id number] 18:53:00 Test Item Value Reference Range Interpretation Comments POC UA SG (test code = >=1.030 *ABN*(03/28/21 POC UA SG) 1:53 PM) [facility] [id number] 18:53:00 Test Item Value Reference Range Interpretation Comments POC UA pH (test code = POC UA pH) 5.0 1 5.0-8.0 [facility] [id number] 18:53:00 Test Item Value Reference Range Interpretation Comments POC UA Prot (test code = POC UA 100 mg/dL Prot) [facility] [id number] 18:53:00 Test Item Value Reference Range Interpretation Comments POC UA Glu (test code = POC UA Negative mg/dL Glu) [facility] [id number] 18:53:00 Test Item Value Reference Range Interpretation Comments POC UA Ket (test code = POC UA Negative mg/dL Ket) [facility] [id number] 18:53:00 Test Item Value Reference Range Interpretation Comments POC UA Bili (test code Small *ABN*(03/28/21 = POC UA Bili) 1:53 PM) [facility] [id number] 18:53:00 Test Item Value Reference Range Interpretation Comments POC UA Bld (test code Trace *ABN*(03/28/21 = POC UA Bld) 1:53 PM) [facility] [id number] 18:53:00 Test Item Value Reference Range Interpretation Comments POC UA Uro (test code = POC UA Uro) 0.2 0.1-1.0 [facility] [id number] 18:53:00 Test Item Value Reference Range Interpretation Comments POC UA Nit (test code Negative *NA*(03/28/21 = POC UA Nit) 1:53 PM) [facility] [id number] 18:53:00 Test Item Value Reference Range Interpretation Comments POC UA LeukEst (test Negative *NA*(03/28/21 code = POC UA LeukEst) 1:53 PM) [facility] [id number] 18:53:00 Test Item Value Reference Range Interpretation Comments POC UA Color (test Yellow *NA*(03/28/21 code = POC UA Color) 1:53 PM) [facility] [id number] 18:53:00 Test Item Value Reference Range Interpretation Comments POC UA Turbidity (test Clear *NA*(03/28/21 code = POC UA Turbidity) 1:53 PM) [facility] [id number] 18:53:00 Test Item Value Reference Range Interpretation Comments POC UA SG (test code = >=1.030 *ABN*(03/28/21 POC UA SG) 1:53 PM) [facility] [id number] 18:53:00 Test Item Value Reference Range Interpretation Comments POC UA pH (test code = POC UA pH) 5.0 1 5.0-8.0 [facility] [id number] 18:53:00 Test Item Value Reference Range Interpretation Comments POC UA Prot (test code = POC UA 100 mg/dL Prot) [facility] [id number] 18:53:00 Test Item Value Reference Range Interpretation Comments POC UA Glu (test code = POC UA Negative mg/dL Glu) [facility] [id number] 18:53:00 Test Item Value Reference Range Interpretation Comments POC UA Ket (test code = POC UA Negative mg/dL Ket) [facility] [id number] 18:53:00 Test Item Value Reference Range Interpretation Comments POC UA Bili (test code Small *ABN*(03/28/21 = POC UA Bili) 1:53 PM) [facility] [id number] 18:53:00 Test Item Value Reference Range Interpretation Comments POC UA Bld (test code Trace *ABN*(03/28/21 = POC UA Bld) 1:53 PM) [facility] [id number] 18:53:00 Test Item Value Reference Range Interpretation Comments POC UA Uro (test code = POC UA Uro) 0.2 0.1-1.0 [facility] [id number] 18:53:00 Test Item Value Reference Range Interpretation Comments POC UA Nit (test code Negative *NA*(03/28/21 = POC UA Nit) 1:53 PM) [facility] [id number] 18:53:00 Test Item Value Reference Range Interpretation Comments POC UA LeukEst (test Negative *NA*(03/28/21 code = POC UA LeukEst) 1:53 PM) [facility] [id number] 18:53:00 Test Item Value Reference Range Interpretation Comments POC UA Color (test Yellow *NA*(03/28/21 code = POC UA Color) 1:53 PM) [facility] [id number] 18:53:00 Test Item Value Reference Range Interpretation Comments POC UA Turbidity (test Clear *NA*(03/28/21 code = POC UA Turbidity) 1:53 PM) [facility] [id number] 18:53:00 Test Item Value Reference Range Interpretation Comments POC UA SG (test code = >=1.030 *ABN*(03/28/21 POC UA SG) 1:53 PM) [facility] [id number] 18:53:00 Test Item Value Reference Range Interpretation Comments POC UA pH (test code = POC UA pH) 5.0 1 5.0-8.0 [facility] [id number] 18:53:00 Test Item Value Reference Range Interpretation Comments POC UA Prot (test code = POC UA 100 mg/dL Prot) [facility] [id number] 18:53:00 Test Item Value Reference Range Interpretation Comments POC UA Glu (test code = POC UA Negative mg/dL Glu) [facility] [id number] 18:53:00 Test Item Value Reference Range Interpretation Comments POC UA Ket (test code = POC UA Negative mg/dL Ket) [facility] [id number] 18:53:00 Test Item Value Reference Range Interpretation Comments POC UA Bili (test code Small *ABN*(03/28/21 = POC UA Bili) 1:53 PM) [facility] [id number] 18:53:00 Test Item Value Reference Range Interpretation Comments POC UA Bld (test code Trace *ABN*(03/28/21 = POC UA Bld) 1:53 PM) [facility] [id number] 18:53:00 Test Item Value Reference Range Interpretation Comments POC UA Uro (test code = POC UA Uro) 0.2 0.1-1.0 [facility] [id number] 18:53:00 Test Item Value Reference Range Interpretation Comments POC UA Nit (test code Negative *NA*(03/28/21 = POC UA Nit) 1:53 PM) [facility] [id number] 18:53:00 Test Item Value Reference Range Interpretation Comments POC UA LeukEst (test Negative *NA*(03/28/21 code = POC UA LeukEst) 1:53 PM) [facility] [id number] 18:53:00 Test Item Value Reference Range Interpretation Comments POC UA Color (test Yellow *NA*(03/28/21 code = POC UA Color) 1:53 PM) [facility] [id number] 18:53:00 Test Item Value Reference Range Interpretation Comments POC UA Turbidity (test Clear *NA*(03/28/21 code = POC UA Turbidity) 1:53 PM) [facility] [id number] 18:53:00 Test Item Value Reference Range Interpretation Comments POC UA SG (test code = >=1.030 *ABN*(03/28/21 POC UA SG) 1:53 PM) [facility] [id number] 18:53:00 Test Item Value Reference Range Interpretation Comments POC UA pH (test code = POC UA pH) 5.0 1 5.0-8.0 [facility] [id number] 18:53:00 Test Item Value Reference Range Interpretation Comments POC UA Prot (test code = POC UA 100 mg/dL Prot) [facility] [id number] 18:53:00 Test Item Value Reference Range Interpretation Comments POC UA Glu (test code = POC UA Negative mg/dL Glu) [facility] [id number] 18:53:00 Test Item Value Reference Range Interpretation Comments POC UA Ket (test code = POC UA Negative mg/dL Ket) [facility] [id number] 18:53:00 Test Item Value Reference Range Interpretation Comments POC UA Bili (test code Small *ABN*(03/28/21 = POC UA Bili) 1:53 PM) [facility] [id number] 18:53:00 Test Item Value Reference Range Interpretation Comments POC UA Bld (test code Trace *ABN*(03/28/21 = POC UA Bld) 1:53 PM) [facility] [id number] 18:53:00 Test Item Value Reference Range Interpretation Comments POC UA Uro (test code = POC UA Uro) 0.2 0.1-1.0 [facility] [id number] 18:53:00 Test Item Value Reference Range Interpretation Comments POC UA Nit (test code Negative *NA*(03/28/21 = POC UA Nit) 1:53 PM) [facility] [id number] 18:53:00 Test Item Value Reference Range Interpretation Comments POC UA LeukEst (test Negative *NA*(03/28/21 code = POC UA LeukEst) 1:53 PM) [facility] [id number] 18:53:00 Test Item Value Reference Range Interpretation Comments POC UA Color (test Yellow *NA*(03/28/21 code = POC UA Color) 1:53 PM) [facility] [id number] 18:53:00 Test Item Value Reference Range Interpretation Comments POC UA Turbidity (test Clear *NA*(03/28/21 code = POC UA Turbidity) 1:53 PM) [facility] [id number] 18:53:00 Test Item Value Reference Range Interpretation Comments POC UA SG (test code = >=1.030 *ABN*(03/28/21 POC UA SG) 1:53 PM) [facility] [id number] 18:53:00 Test Item Value Reference Range Interpretation Comments POC UA pH (test code = POC UA pH) 5.0 1 5.0-8.0 [facility] [id number] 18:53:00 Test Item Value Reference Range Interpretation Comments POC UA Prot (test code = POC UA 100 mg/dL Prot) [facility] [id number] 18:53:00 Test Item Value Reference Range Interpretation Comments POC UA Glu (test code = POC UA Negative mg/dL Glu) [facility] [id number] 18:53:00 Test Item Value Reference Range Interpretation Comments POC UA Ket (test code = POC UA Negative mg/dL Ket) [facility] [id number] 18:53:00 Test Item Value Reference Range Interpretation Comments POC UA Bili (test code Small *ABN*(03/28/21 = POC UA Bili) 1:53 PM) [facility] [id number] 18:53:00 Test Item Value Reference Range Interpretation Comments POC UA Bld (test code Trace *ABN*(03/28/21 = POC UA Bld) 1:53 PM) [facility] [place] [facility] [id number] 18:53:00 Test Item Value Reference Range Interpretation Comments POC UA Uro (test code = POC UA Uro) 0.2 0.1-1.0 [facility] [place] [facility] [id number] 18:53:00 Test Item Value Reference Range Interpretation Comments POC UA Nit (test code Negative *NA*(03/28/21 = POC UA Nit) 1:53 PM) [facility] [place] [facility] [id number] 18:53:00 Test Item Value Reference Range Interpretation Comments POC UA LeukEst (test Negative *NA*(03/28/21 code = POC UA LeukEst) 1:53 PM) [facility] [id number] 16:25:00 Test Item Value Reference Range Interpretation Comments Result 2 (Urine Culture) See Result Comment (test code = Result 2 (Urine Culture)) [facility] [id number] 16:25:00 Test Item Value Reference Range Interpretation Comments Result 2 (Urine Culture) See Result Comment (test code = Result 2 (Urine Culture)) [facility] [id number] 16:25:00 Test Item Value Reference Range Interpretation Comments Result 2 (Urine Culture) See Result Comment (test code = Result 2 (Urine Culture)) [facility] [id number] 16:25:00 Test Item Value Reference Range Interpretation Comments Result 2 (Urine Culture) See Result Comment (test code = Result 2 (Urine Culture)) [facility]annREFBasicGov SystemsNCE LAB [id number] 16:25:00 Test Item Value Reference Range Interpretation Comments Result 2 (Urine Culture) See Result Comment (test code = Result 2 (Urine Culture)) [facility]akE [facility] [id number] 16:25:00 Test Item Value Reference Range Interpretation Comments Result 2 (Urine Culture) See Result Comment (test code = Result 2 (Urine Culture)) [facility] [id number] 16:25:00 Test Item Value Reference Range Interpretation Comments Result 2 (Urine Culture) See Result Comment (test code = Result 2 (Urine Culture)) [facility] [id number] 16:25:00 Test Item Value Reference Range Interpretation Comments Result 2 (Urine Culture) See Result Comment (test code = Result 2 (Urine Culture)) [facility] [id number] 16:25:00 Test Item Value Reference Range Interpretation Comments Result 2 (Urine Culture) See Result Comment (test code = Result 2 (Urine Culture)) [facility] [id number] 16:25:00 Test Item Value Reference Range Interpretation Comments Result 2 (Urine Culture) See Result Comment (test code = Result 2 (Urine Culture)) [facility] [id number] 16:25:00 Test Item Value Reference Range Interpretation Comments Result 2 (Urine Culture) See Result Comment (test code = Result 2 (Urine Culture)) [facility] [id number] 16:25:00 Test Item Value Reference Range Interpretation Comments Result 2 (Urine Culture) See Result Comment (test code = Result 2 (Urine Culture)) [facility] [id number] 16:25:00 Test Item Value Reference Range Interpretation Comments Result 2 (Urine Culture) See Result Comment (test code = Result 2 (Urine Culture)) [facility] [id number] 16:25:00 Test Item Value Reference Range Interpretation Comments Result 2 (Urine Culture) See Result Comment (test code = Result 2 (Urine Culture)) [facility] LTDannREFBasicGov SystemsILE LAB [id number] 16:25:00 Test Item Value Reference Range Interpretation Comments Result 2 (Urine Culture) See Result Comment (test code = Result 2 (Urine Culture)) [facility] LTDannREFEREILE LAB [id number] 16:25:00 Test Item Value Reference Range Interpretation Comments Result 2 (Urine Culture) See Result Comment (test code = Result 2 (Urine Culture)) [facility]REFBasicGov SystemsILE LAB [id number] 16:25:00 Test Item Value Reference Range Interpretation Comments Result 2 (Urine Culture) See Result Comment (test code = Result 2 (Urine Culture)) [facility] [employer] LAB [id number] 16:25:00 Test Item Value Reference Range Interpretation Comments Result 2 (Urine Culture) See Result Comment (test code = Result 2 (Urine Culture)) [facility] [employer] LAB [id number] 16:25:00 Test Item Value Reference Range Interpretation Comments Result 2 (Urine Culture) See Result Comment (test code = Result 2 (Urine Culture)) [facility]REFBasicGov SystemsILE LAB [id number] 16:25:00 Test Item Value Reference Range Interpretation Comments Result 2 (Urine Culture) See Result Comment (test code = Result 2 (Urine Culture)) [facility] [employer] Network[employer] LAB [id number] 16:25:00 Test Item Value Reference Range Interpretation Comments Result 2 (Urine Culture) See Result Comment (test code = Result 2 (Urine Culture)) [facility] [employer] NetworkILE LAB [id number] 16:25:00 Test Item Value Reference Range Interpretation Comments Result 2 (Urine Culture) See Result Comment (test code = Result 2 (Urine Culture)) [facility] [employer] LAB [id number] 16:25:00 Test Item Value Reference Range Interpretation Comments Result 2 (Urine Culture) See Result Comment (test code = Result 2 (Urine Culture)) [facility] [employer] NetworkNCE LAB [id number] 16:25:00 Test Item Value Reference Range Interpretation Comments Result 2 (Urine Culture) See Result Comment (test code = Result 2 (Urine Culture)) [facility] TongalREFBasicGov SystemsNCE LAB [id number] 16:25:00 Test Item Value Reference Range Interpretation Comments Result 2 (Urine Culture) See Result Comment (test code = Result 2 (Urine Culture)) [facility] LTDannREFBasicGov SystemsNCE LAB [id number] 16:25:00 Test Item Value Reference Range Interpretation Comments Result 2 (Urine Culture) See Result Comment (test code = Result 2 (Urine Culture)) [facility]E [facility] [id number] 16:25:00 Test Item Value Reference Range Interpretation Comments Result 2 (Urine Culture) See Result Comment (test code = Result 2 (Urine Culture)) [facility]E [facility] [id number] 16:25:00 Test Item Value Reference Range Interpretation Comments Result 2 (Urine Culture) See Result Comment (test code = Result 2 (Urine Culture)) [facility] [id number] 16:25:00 Test Item Value Reference Range Interpretation Comments Result 2 (Urine Culture) See Result Comment (test code = Result 2 (Urine Culture)) [facility] [id number] 16:25:00 Test Item Value Reference Range Interpretation Comments Result 2 (Urine Culture) See Result Comment (test code = Result 2 (Urine Culture)) [facility] [id number] 16:25:00 Test Item Value Reference Range Interpretation Comments Result 2 (Urine Culture) See Result Comment (test code = Result 2 (Urine Culture)) [facility] [id number] 16:25:00 Test Item Value Reference Range Interpretation Comments Result 2 (Urine Culture) See Result Comment (test code = Result 2 (Urine Culture)) [facility] [id number] 16:25:00 Test Item Value Reference Range Interpretation Comments Result 2 (Urine Culture) See Result Comment (test code = Result 2 (Urine Culture)) [facility] [id number] 16:25:00 Test Item Value Reference Range Interpretation Comments Result 2 (Urine Culture) See Result Comment (test code = Result 2 (Urine Culture)) [facility] [id number] 16:25:00 Test Item Value Reference Range Interpretation Comments Result 2 (Urine Culture) See Result Comment (test code = Result 2 (Urine Culture)) [facility] [id number] 16:25:00 Test Item Value Reference Range Interpretation Comments Result 2 (Urine Culture) See Result Comment (test code = Result 2 (Urine Culture)) [facility] LAB [id number] 16:25:00 Test Item Value Reference Range Interpretation Comments Result 2 (Urine Culture) See Result Comment (test code = Result 2 (Urine Culture)) [facility] LAB [id number] 16:25:00 Test Item Value Reference Range Interpretation Comments Result 2 (Urine Culture) See Result Comment (test code = Result 2 (Urine Culture)) [facility] LAB [id number] 16:25:00 Test Item Value Reference Range Interpretation Comments Result 2 (Urine Culture) See Result Comment (test code = Result 2 (Urine Culture)) [facility] LAB [id number] 16:25:00 Test Item Value Reference Range Interpretation Comments Result 2 (Urine Culture) See Result Comment (test code = Result 2 (Urine Culture)) [facility]AlpvbmsMFTYGSJYTW9612-27-83 11:38:00 Test Item Value Reference Range Interpretation Comments WBC (test code = WBC) 7.0 3.7-10.4 [facility] CentralQxmmjkwYCQHYWDJVP9428-58-13 11:38:00 Test Item Value Reference Range Interpretation Comments RBC (test code = RBC) 3.14 4.20-5.40 [facility] CentralW[id number] 11:38:00 Test Item Value Reference Range Interpretation Comments Hgb (test code = Hgb) 9.3 12.0-16.0 [id number] 11:38:00 Test Item Value Reference Range Interpretation Comments Hct (test code = Hct) 27.9 36.0-48.0 [facility]borXunseqwPHSRZVLIDN1914-75-15 11:38:00 Test Item Value Reference Range Interpretation Comments MCV (test code = MCV) 88.7 80.0-98.0 [facility] CentralOeosommLIELFPFIXA0403-02-58 11:38:00 Test Item Value Reference Range Interpretation Comments MCH (test code = MCH) 29.7 pg 27.0-31.0 [place] 139731-08-22 11:38:00 Test Item Value Reference Range Interpretation Comments MCHC (test code = MCHC) 33.5 32.0-36.0 [place] 139731-08-22 11:38:00 Test Item Value Reference Range Interpretation Comments RDW (test code = RDW) 15.7 11.5-14.5 [place] 139731-08-22 11:38:00 Test Item Value Reference Range Interpretation Comments Platelet (test code = Platelet) 418 133-450 [place] 139731-08-22 11:38:00 Test Item Value Reference Range Interpretation Comments MPV (test code = MPV) 9.2 7.4-10.4 [place] 139731-08-22 11:38:00 Test Item Value Reference Range Interpretation Comments Segs (test code = Segs) 57.9 45.0-75.0 [place] 139731-08-22 11:38:00 Test Item Value Reference Range Interpretation Comments Lymphocytes (test code = Lymphocytes) 30.0 20.0-40.0 [place] 139731-08-22 11:38:00 Test Item Value Reference Range Interpretation Comments Monocytes (test code = Monocytes) 8.2 2.0-12.0 [place] 139731-08-22 11:38:00 Test Item Value Reference Range Interpretation Comments Eosinophils (test code = 2.9 See_Comment [A utomated message] The Eosinophils) system which ge nerated this result tra nsmitted reference range : <=4.0. The reference r arelis was not used to int erpret this result as normal/abnormal . [facility] CentralGnaxceyYJXVGYCFAE4886-39-14 11:38:00 Test Item Value Reference Range Interpretation Comments Basophils (test code = 1.0 See_Comment [Aut omated message] The Basophils) system which ge nerated this result tra nsmitted reference range : <=1.0. The reference r arelis was not used to int erpret this result as normal/abnormal . [place] 139731-08-22 11:38:00 Test Item Value Reference Range Interpretation Comments Neutrophils # (test code = Neutrophils 4.0 1.5-8.1 #) [facility] CentralWmxmfojXBPMVVHQCI9853-64-12 11:38:00 Test Item Value Reference Range Interpretation Comments Lymphocytes # (test code = Lymphocytes 2.1 1.0-5.5 #) [facility] CentralCeapzgxBPVREXYWON1097-10-91 11:38:00 Test Item Value Reference Range Interpretation Comments Monocytes # (test code 0.6 See_Comment [Aut omated message] The = Monocytes #) system which generated this result tra nsmitted reference range : <=0.8. The reference r arelis was not used to int erpret this result as normal/abnormal . [facility] CentralZeighlsGCVZVQBASL8178-63-89 11:38:00 Test Item Value Reference Range Interpretation Comments Eosinophils # (test code 0.2 See_Comment [A utomated message] The = Eosinophils #) system whic h generated this result tra nsmitted reference range : <=0.5. The reference r arelis was not used to int erpret this result as normal/abnormal . [facility] CentralMcsmtlzROSDRQFYTY4835-02-12 11:38:00 Test Item Value Reference Range Interpretation Comments Basophils # (test code 0.1 See_Comment [Aut omated message] The = Basophils #) system which generated this result tra nsmitted reference range : <=0.2. The reference r arelis was not used to int erpret this result as normal/abnormal . [facility] CentralOnnnjamOEIOATJEOU1852-72-06 11:38:00 Test Item Value Reference Range Interpretation Comments WBC (test code = WBC) 7.0 3.7-10.4 [place] 139731-08-22 11:38:00 Test Item Value Reference Range Interpretation Comments RBC (test code = RBC) 3.14 4.20-5.40 [place] 139731-08-22 11:38:00 Test Item Value Reference Range Interpretation Comments Hgb (test code = Hgb) 9.3 12.0-16.0 [place] 139731-08-22 11:38:00 Test Item Value Reference Range Interpretation Comments Hct (test code = Hct) 27.9 36.0-48.0 [place] 1397[address]-08-22 11:38:00 Test Item Value Reference Range Interpretation Comments MCV (test code = MCV) 88.7 80.0-98.0 [place] 139731-08-22 11:38:00 Test Item Value Reference Range Interpretation Comments MCH (test code = MCH) 29.7 pg 27.0-31.0 [facility] CentralRsqsdtiFHOLJGEPSB8054-49-73 11:38:00 Test Item Value Reference Range Interpretation Comments MCHC (test code = MCHC) 33.5 32.0-36.0 [facility] CentralUfklfndLNUTCKPSXN5852-31-11 11:38:00 Test Item Value Reference Range Interpretation Comments RDW (test code = RDW) 15.7 11.5-14.5 [facility] CentralZhtyljxKZCCGZAHKH0762-20-91 11:38:00 Test Item Value Reference Range Interpretation Comments Platelet (test code = Platelet) 418 133-450 [facility] CentralNyryiteBCRQUXWHLP4253-25-33 11:38:00 Test Item Value Reference Range Interpretation Comments MPV (test code = MPV) 9.2 7.4-10.4 [facility] CentralBfmpfqfZTGFKCROBD2803-57-20 11:38:00 Test Item Value Reference Range Interpretation Comments Segs (test code = Segs) 57.9 45.0-75.0 [facility] CentralVlylrxdRPKTCELIZN0967-90-68 11:38:00 Test Item Value Reference Range Interpretation Comments Lymphocytes (test code = Lymphocytes) 30.0 20.0-40.0 [facility] CentralYaxohldABZVINZHLU4643-42-64 11:38:00 Test Item Value Reference Range Interpretation Comments Monocytes (test code = Monocytes) 8.2 2.0-12.0 [facility] CentralDoytmhsYPKQSTVKNM6495-87-20 11:38:00 Test Item Value Reference Range Interpretation Comments Eosinophils (test code = 2.9 See_Comment [A utomated message] The Eosinophils) system which ge nerated this result tra nsmitted reference range : <=4.0. The reference r arelis was not used to int erpret this result as normal/abnormal . [facility] CentralNprlmztLPCBDOTALN3956-46-14 11:38:00 Test Item Value Reference Range Interpretation Comments Basophils (test code = 1.0 See_Comment [Aut omated message] The Basophils) system which ge nerated this result tra nsmitted reference range : <=1.0. The reference r arelis was not used to int erpret this result as normal/abnormal . [facility] CentralAxqfbhgRGJNMGUPGC0945-50-55 11:38:00 Test Item Value Reference Range Interpretation Comments Neutrophils # (test code = Neutrophils 4.0 1.5-8.1 #) [facility] CentralRddvfqmFLXNITGAKD4388-13-72 11:38:00 Test Item Value Reference Range Interpretation Comments Lymphocytes # (test code = Lymphocytes 2.1 1.0-5.5 #) [place] 139731-08-22 11:38:00 Test Item Value Reference Range Interpretation Comments Monocytes # (test code 0.6 See_Comment [Aut omated message] The = Monocytes #) system which generated this result tra nsmitted reference range : <=0.8. The reference r arelis was not used to int erpret this result as normal/abnormal . [facility] CentralIdlfhfyCKAMPGAFZW5193-98-42 11:38:00 Test Item Value Reference Range Interpretation Comments Eosinophils # (test code 0.2 See_Comment [A utomated message] The = Eosinophils #) system whic h generated this result tra nsmitted reference range : <=0.5. The reference r arelis was not used to int erpret this result as normal/abnormal . [facility] CentralVofryjyBDYQMHAYKL8805-81-42 11:38:00 Test Item Value Reference Range Interpretation Comments Basophils # (test code 0.1 See_Comment [Aut omated message] The = Basophils #) system which generated this result tra nsmitted reference range : <=0.2. The reference r arelis was not used to int erpret this result as normal/abnormal . [facility] CentralIkexifzVWPCAIUPRM9470-23-44 11:38:00 Test Item Value Reference Range Interpretation Comments WBC (test code = WBC) 7.0 3.7-10.4 [place] 139731-08-22 11:38:00 Test Item Value Reference Range Interpretation Comments RBC (test code = RBC) 3.14 4.20-5.40 [place] 139731-08-22 11:38:00 Test Item Value Reference Range Interpretation Comments Hgb (test code = Hgb) 9.3 12.0-16.0 [place] 139731-08-22 11:38:00 Test Item Value Reference Range Interpretation Comments Hct (test code = Hct) 27.9 36.0-48.0 [place] 139731-08-22 11:38:00 Test Item Value Reference Range Interpretation Comments MCV (test code = MCV) 88.7 80.0-98.0 [place] 139731-08-22 11:38:00 Test Item Value Reference Range Interpretation Comments MCH (test code = MCH) 29.7 pg 27.0-31.0 [facility] CentralJiblxopBBDMCGIGHG6500-95-36 11:38:00 Test Item Value Reference Range Interpretation Comments MCHC (test code = MCHC) 33.5 32.0-36.0 [facility] CentralSphkbriWZOOVFFLWH2762-57-08 11:38:00 Test Item Value Reference Range Interpretation Comments RDW (test code = RDW) 15.7 11.5-14.5 [facility] CentralAjamtzvEEHHJTBPGK1022-39-22 11:38:00 Test Item Value Reference Range Interpretation Comments Platelet (test code = Platelet) 418 133-450 [facility] CentralFjfwnehXNUSHHKWCL4578-46-37 11:38:00 Test Item Value Reference Range Interpretation Comments MPV (test code = MPV) 9.2 7.4-10.4 [facility] CentralTcdstwiNGHNNQQZHR2158-82-05 11:38:00 Test Item Value Reference Range Interpretation Comments Segs (test code = Segs) 57.9 45.0-75.0 [facility] CentralZdvyrqmOPBWFYBESO6548-64-64 11:38:00 Test Item Value Reference Range Interpretation Comments Lymphocytes (test code = Lymphocytes) 30.0 20.0-40.0 [facility] CentralDgwducmYFQJHFLUUF2470-02-19 11:38:00 Test Item Value Reference Range Interpretation Comments Monocytes (test code = Monocytes) 8.2 2.0-12.0 [facility] CentralEiujtkqUCKRNNYDEK0461-18-67 11:38:00 Test Item Value Reference Range Interpretation Comments Eosinophils (test code = 2.9 See_Comment [A utomated message] The Eosinophils) system which ge nerated this result tra nsmitted reference range : <=4.0. The reference r arelis was not used to int erpret this result as normal/abnormal . [facility] CentralVohngmbLEDZILDBOB0379-42-88 11:38:00 Test Item Value Reference Range Interpretation Comments Basophils (test code = 1.0 See_Comment [Aut omated message] The Basophils) system which ge nerated this result tra nsmitted reference range : <=1.0. The reference r arelis was not used to int erpret this result as normal/abnormal . [facility] CentralBmxkgqkYIRKQPZIJQ0822-08-09 11:38:00 Test Item Value Reference Range Interpretation Comments Neutrophils # (test code = Neutrophils 4.0 1.5-8.1 #) [facility] CentralVkfyfxyIBOLVDKWEH4071-99-33 11:38:00 Test Item Value Reference Range Interpretation Comments Lymphocytes # (test code = Lymphocytes 2.1 1.0-5.5 #) [place] 139731-08-22 11:38:00 Test Item Value Reference Range Interpretation Comments Monocytes # (test code 0.6 See_Comment [Aut omated message] The = Monocytes #) system which generated this result tra nsmitted reference range : <=0.8. The reference r arelis was not used to int erpret this result as normal/abnormal . [place] 139731-08-22 11:38:00 Test Item Value Reference Range Interpretation Comments Eosinophils # (test code 0.2 See_Comment [A utomated message] The = Eosinophils #) system whic h generated this result tra nsmitted reference range : <=0.5. The reference r arelis was not used to int erpret this result as normal/abnormal . [facility] CentralDmrcxvcHPBYUZEZHE9580-31-79 11:38:00 Test Item Value Reference Range Interpretation Comments Basophils # (test code 0.1 See_Comment [Aut omated message] The = Basophils #) system which generated this result tra nsmitted reference range : <=0.2. The reference r arelis was not used to int erpret this result as normal/abnormal . [place] 139731-08-22 11:38:00 Test Item Value Reference Range Interpretation Comments WBC (test code = WBC) 7.0 3.7-10.4 [place] 139731-08-22 11:38:00 Test Item Value Reference Range Interpretation Comments RBC (test code = RBC) 3.14 4.20-5.40 [place] 1397[address]-08-22 11:38:00 Test Item Value Reference Range Interpretation Comments Hgb (test code = Hgb) 9.3 12.0-16.0 [place] 1397[address]-08-22 11:38:00 Test Item Value Reference Range Interpretation Comments Hct (test code = Hct) 27.9 36.0-48.0 [place] 1397[address]-08-22 11:38:00 Test Item Value Reference Range Interpretation Comments MCV (test code = MCV) 88.7 80.0-98.0 [facility] CentralXkikbfmGSDRQTWXNS2789-60-91 11:38:00 Test Item Value Reference Range Interpretation Comments MCH (test code = MCH) 29.7 pg 27.0-31.0 [facility] CentralGwdzodlSWHLPDFFNI1334-31-13 11:38:00 Test Item Value Reference Range Interpretation Comments MCHC (test code = MCHC) 33.5 32.0-36.0 [facility] CentralPtxlkqkWJBSERYPPJ7816-33-12 11:38:00 Test Item Value Reference Range Interpretation Comments RDW (test code = RDW) 15.7 11.5-14.5 [facility] CentralFkmmdhiHMMIPIBWUE3123-10-60 11:38:00 Test Item Value Reference Range Interpretation Comments Platelet (test code = Platelet) 418 133-450 [facility] CentralKuitznsARLWUVJBJA1511-18-39 11:38:00 Test Item Value Reference Range Interpretation Comments MPV (test code = MPV) 9.2 7.4-10.4 [facility] CentralQfqqbzgKWROSGPDMT7634-07-41 11:38:00 Test Item Value Reference Range Interpretation Comments Segs (test code = Segs) 57.9 45.0-75.0 [facility] CentralQbajotePHVUDXGQSJ3273-25-15 11:38:00 Test Item Value Reference Range Interpretation Comments Lymphocytes (test code = Lymphocytes) 30.0 20.0-40.0 [facility] CentralQdiizwqYSKHLNQIFS6883-56-39 11:38:00 Test Item Value Reference Range Interpretation Comments Monocytes (test code = Monocytes) 8.2 2.0-12.0 [facility] CentralFzrfrppLWDERHGBPQ8090-32-15 11:38:00 Test Item Value Reference Range Interpretation Comments Eosinophils (test code = 2.9 See_Comment [A utomated message] The Eosinophils) system which ge nerated this result tra nsmitted reference range : <=4.0. The reference r arelis was not used to int erpret this result as normal/abnormal . [facility] CentralQmuhfegLYTRFMIIWD6071-75-56 11:38:00 Test Item Value Reference Range Interpretation Comments Basophils (test code = 1.0 See_Comment [Aut omated message] The Basophils) system which ge nerated this result tra nsmitted reference range : <=1.0. The reference r arelis was not used to int erpret this result as normal/abnormal . [place] 139731-08-22 11:38:00 Test Item Value Reference Range Interpretation Comments Neutrophils # (test code = Neutrophils 4.0 1.5-8.1 #) [facility] CentralWkexlruAKUANPDYFX7230-36-91 11:38:00 Test Item Value Reference Range Interpretation Comments Lymphocytes # (test code = Lymphocytes 2.1 1.0-5.5 #) [facility] CentralFhuadqmAWTWOEYCKG8579-27-42 11:38:00 Test Item Value Reference Range Interpretation Comments Monocytes # (test code 0.6 See_Comment [Aut omated message] The = Monocytes #) system which generated this result tra nsmitted reference range : <=0.8. The reference r arelis was not used to int erpret this result as normal/abnormal . [facility] CentralHbihaudTUHXRVQKQB9729-51-43 11:38:00 Test Item Value Reference Range Interpretation Comments Eosinophils # (test code 0.2 See_Comment [A utomated message] The = Eosinophils #) system whic h generated this result tra nsmitted reference range : <=0.5. The reference r arelis was not used to int erpret this result as normal/abnormal . [facility] CentralNzrwwouQOGPRYNRDV5014-55-57 11:38:00 Test Item Value Reference Range Interpretation Comments Basophils # (test code 0.1 See_Comment [Aut omated message] The = Basophils #) system which generated this result tra nsmitted reference range : <=0.2. The reference r arelis was not used to int erpret this result as normal/abnormal . [facility] CentralNdwceymTOMFOKTJTB1197-01-38 11:38:00 Test Item Value Reference Range Interpretation Comments WBC (test code = WBC) 7.0 3.7-10.4 [place] 139731-08-22 11:38:00 Test Item Value Reference Range Interpretation Comments RBC (test code = RBC) 3.14 4.20-5.40 [place] 139731-08-22 11:38:00 Test Item Value Reference Range Interpretation Comments Hgb (test code = Hgb) 9.3 12.0-16.0 [place] 139731-08-22 11:38:00 Test Item Value Reference Range Interpretation Comments Hct (test code = Hct) 27.9 36.0-48.0 [place] 139731-08-22 11:38:00 Test Item Value Reference Range Interpretation Comments MCV (test code = MCV) 88.7 80.0-98.0 [place] 139731-08-22 11:38:00 Test Item Value Reference Range Interpretation Comments MCH (test code = MCH) 29.7 pg 27.0-31.0 [place] 139731-08-22 11:38:00 Test Item Value Reference Range Interpretation Comments MCHC (test code = MCHC) 33.5 32.0-36.0 [place] 139731-08-22 11:38:00 Test Item Value Reference Range Interpretation Comments RDW (test code = RDW) 15.7 11.5-14.5 [place] 1397[address]-08-22 11:38:00 Test Item Value Reference Range Interpretation Comments Platelet (test code = Platelet) 418 133-450 [place] 139731-08-22 11:38:00 Test Item Value Reference Range Interpretation Comments MPV (test code = MPV) 9.2 7.4-10.4 [place] 139731-08-22 11:38:00 Test Item Value Reference Range Interpretation Comments Segs (test code = Segs) 57.9 45.0-75.0 [place] [address]731-08-22 11:38:00 Test Item Value Reference Range Interpretation Comments Lymphocytes (test code = Lymphocytes) 30.0 20.0-40.0 [place] [address]-08-22 11:38:00 Test Item Value Reference Range Interpretation Comments Monocytes (test code = Monocytes) 8.2 2.0-12.0 [place] [address]-08-22 11:38:00 Test Item Value Reference Range Interpretation Comments Eosinophils (test code = 2.9 See_Comment [A utomated message] The Eosinophils) system which ge nerated this result tra nsmitted reference range : <=4.0. The reference r arelis was not used to int erpret this result as normal/abnormal . [place] [address]-08-22 11:38:00 Test Item Value Reference Range Interpretation Comments Basophils (test code = 1.0 See_Comment [Aut omated message] The Basophils) system which ge nerated this result tra nsmitted reference range : <=1.0. The reference r arelis was not used to int erpret this result as normal/abnormal . [place] [address]-08-22 11:38:00 Test Item Value Reference Range Interpretation Comments Neutrophils # (test code = Neutrophils 4.0 1.5-8.1 #) [facility]uonvdpZFORZHIBBT6296-14-27 11:38:00 Test Item Value Reference Range Interpretation Comments Lymphocytes # (test code = Lymphocytes 2.1 1.0-5.5 #) [place] [address]-08-22 11:38:00 Test Item Value Reference Range Interpretation Comments Monocytes # (test code 0.6 See_Comment [Aut omated message] The = Monocytes #) system which generated this result tra nsmitted reference range : <=0.8. The reference r arelis was not used to int erpret this result as normal/abnormal . [place] [address]-08-22 11:38:00 Test Item Value Reference Range Interpretation Comments Eosinophils # (test code 0.2 See_Comment [A utomated message] The = Eosinophils #) system whic h generated this result tra nsmitted reference range : <=0.5. The reference r arelis was not used to int erpret this result as normal/abnormal . [facility] CentralByoejgqBZYMXMAFIB3092-43-00 11:38:00 Test Item Value Reference Range Interpretation Comments Basophils # (test code 0.1 See_Comment [Aut omated message] The = Basophils #) system which generated this result tra nsmitted reference range : <=0.2. The reference r arelis was not used to int erpret this result as normal/abnormal . [facility] CentralLvcbjtsABTWYVKUEW5756-74-21 11:38:00 Test Item Value Reference Range Interpretation Comments WBC (test code = WBC) 7.0 3.7-10.4 [place] [address]-08-22 11:38:00 Test Item Value Reference Range Interpretation Comments RBC (test code = RBC) 3.14 4.20-5.40 [place] [address]-08-22 11:38:00 Test Item Value Reference Range Interpretation Comments Hgb (test code = Hgb) 9.3 12.0-16.0 [place] [address]-08-22 11:38:00 Test Item Value Reference Range Interpretation Comments Hct (test code = Hct) 27.9 36.0-48.0 [place] [address]-08-22 11:38:00 Test Item Value Reference Range Interpretation Comments MCV (test code = MCV) 88.7 80.0-98.0 [place] [address]-08-22 11:38:00 Test Item Value Reference Range Interpretation Comments MCH (test code = MCH) 29.7 pg 27.0-31.0 [place] [address]-08-22 11:38:00 Test Item Value Reference Range Interpretation Comments MCHC (test code = MCHC) 33.5 32.0-36.0 [facility] CentralOfojrobODRHJLQOSC5732-05-35 11:38:00 Test Item Value Reference Range Interpretation Comments RDW (test code = RDW) 15.7 11.5-14.5 [place] [address]-08-22 11:38:00 Test Item Value Reference Range Interpretation Comments Platelet (test code = Platelet) 418 133-450 [facility] CentralXevkbnlEFGAHMHTOA0868-43-35 11:38:00 Test Item Value Reference Range Interpretation Comments MPV (test code = MPV) 9.2 7.4-10.4 [place] [address]-08-22 11:38:00 Test Item Value Reference Range Interpretation Comments Segs (test code = Segs) 57.9 45.0-75.0 [facility] CentralIiympcnUJETOYANNB8789-37-22 11:38:00 Test Item Value Reference Range Interpretation Comments Lymphocytes (test code = Lymphocytes) 30.0 20.0-40.0 [facility] CentralPbwoujpOKCBZVZKKW6617-62-11 11:38:00 Test Item Value Reference Range Interpretation Comments Monocytes (test code = Monocytes) 8.2 2.0-12.0 [place] [address]-08-22 11:38:00 Test Item Value Reference Range Interpretation Comments Eosinophils (test code = 2.9 See_Comment [A utomated message] The Eosinophils) system which ge nerated this result tra nsmitted reference range : <=4.0. The reference r arelis was not used to int erpret this result as normal/abnormal . [facility] CentralIqqzuprDDUSWWQIUE9099-20-55 11:38:00 Test Item Value Reference Range Interpretation Comments Basophils (test code = 1.0 See_Comment [Aut omated message] The Basophils) system which ge nerated this result tra nsmitted reference range : <=1.0. The reference r arelis was not used to int erpret this result as normal/abnormal . [facility] CentralQvxgkqfJCTDPXNAUC5087-39-71 11:38:00 Test Item Value Reference Range Interpretation Comments Neutrophils # (test code = Neutrophils 4.0 1.5-8.1 #) [facility] CentralKsnphjlSIZCJWQMME8614-42-93 11:38:00 Test Item Value Reference Range Interpretation Comments Lymphocytes # (test code = Lymphocytes 2.1 1.0-5.5 #) [facility] CentralUebfyelTMOWHAJBVY6074-46-22 11:38:00 Test Item Value Reference Range Interpretation Comments Monocytes # (test code 0.6 See_Comment [Aut omated message] The = Monocytes #) system which generated this result tra nsmitted reference range : <=0.8. The reference r arelis was not used to int erpret this result as normal/abnormal . [facility] CentralVwjoykwYQTGOSUNSE7941-75-05 11:38:00 Test Item Value Reference Range Interpretation Comments Eosinophils # (test code 0.2 See_Comment [A utomated message] The = Eosinophils #) system whic h generated this result tra nsmitted reference range : <=0.5. The reference r arelis was not used to int erpret this result as normal/abnormal . [facility] CentralJcxkyxfRUGDOUAFFJ4002-97-70 11:38:00 Test Item Value Reference Range Interpretation Comments Basophils # (test code 0.1 See_Comment [Aut omated message] The = Basophils #) system which generated this result tra nsmitted reference range : <=0.2. The reference r arelis was not used to int erpret this result as normal/abnormal . [facility] CentralEqsijplWDHBQYQUQO9687-30-28 11:38:00 Test Item Value Reference Range Interpretation Comments WBC (test code = WBC) 7.0 3.7-10.4 [place] [address]-08-22 11:38:00 Test Item Value Reference Range Interpretation Comments RBC (test code = RBC) 3.14 4.20-5.40 [place] [address]-08-22 11:38:00 Test Item Value Reference Range Interpretation Comments Hgb (test code = Hgb) 9.3 12.0-16.0 [place] [address]-08-22 11:38:00 Test Item Value Reference Range Interpretation Comments Hct (test code = Hct) 27.9 36.0-48.0 [place] [address]-08-22 11:38:00 Test Item Value Reference Range Interpretation Comments MCV (test code = MCV) 88.7 80.0-98.0 [place] [address]-08-22 11:38:00 Test Item Value Reference Range Interpretation Comments MCH (test code = MCH) 29.7 pg 27.0-31.0 [place] [address]-08-22 11:38:00 Test Item Value Reference Range Interpretation Comments MCHC (test code = MCHC) 33.5 32.0-36.0 [place] [address]-08-22 11:38:00 Test Item Value Reference Range Interpretation Comments RDW (test code = RDW) 15.7 11.5-14.5 [place] [address]-08-22 11:38:00 Test Item Value Reference Range Interpretation Comments Platelet (test code = Platelet) 418 133-450 [facility] CentralRnszajxZRNXEFNSRO6483-86-67 11:38:00 Test Item Value Reference Range Interpretation Comments MPV (test code = MPV) 9.2 7.4-10.4 [facility] CentralWzjdzlkVRPWZHWVIU5935-97-36 11:38:00 Test Item Value Reference Range Interpretation Comments Segs (test code = Segs) 57.9 45.0-75.0 [place] [address]-08-22 11:38:00 Test Item Value Reference Range Interpretation Comments Lymphocytes (test code = Lymphocytes) 30.0 20.0-40.0 [place] [address]-08-22 11:38:00 Test Item Value Reference Range Interpretation Comments Monocytes (test code = Monocytes) 8.2 2.0-12.0 [place] [address]-08-22 11:38:00 Test Item Value Reference Range Interpretation Comments Eosinophils (test code = 2.9 See_Comment [A utomated message] The Eosinophils) system which ge nerated this result tra nsmitted reference range : <=4.0. The reference r arelis was not used to int erpret this result as normal/abnormal . [facility] CentralEpwulslXIGTSSNYIW0752-37-03 11:38:00 Test Item Value Reference Range Interpretation Comments Basophils (test code = 1.0 See_Comment [Aut omated message] The Basophils) system which ge nerated this result tra nsmitted reference range : <=1.0. The reference r arelis was not used to int erpret this result as normal/abnormal . [facility] CentralYotpqusUQUEFKCQVN5661-02-97 11:38:00 Test Item Value Reference Range Interpretation Comments Neutrophils # (test code = Neutrophils 4.0 1.5-8.1 #) [facility] CentralIxvghlfOVJNNRKTLM1050-54-20 11:38:00 Test Item Value Reference Range Interpretation Comments Lymphocytes # (test code = Lymphocytes 2.1 1.0-5.5 #) [facility] CentralNqfogmaNNVVBEZDGL1078-65-73 11:38:00 Test Item Value Reference Range Interpretation Comments Monocytes # (test code 0.6 See_Comment [Aut omated message] The = Monocytes #) system which generated this result tra nsmitted reference range : <=0.8. The reference r arelis was not used to int erpret this result as normal/abnormal . [facility] CentralVefldmkRQCOACNDCM9880-20-36 11:38:00 Test Item Value Reference Range Interpretation Comments Eosinophils # (test code 0.2 See_Comment [A utomated message] The = Eosinophils #) system whic h generated this result tra nsmitted reference range : <=0.5. The reference r arelis was not used to int erpret this result as normal/abnormal . [facility] CentralCdhrhegQEMFGSXVTK5871-64-14 11:38:00 Test Item Value Reference Range Interpretation Comments Basophils # (test code 0.1 See_Comment [Aut omated message] The = Basophils #) system which generated this result tra nsmitted reference range : <=0.2. The reference r arelis was not used to int erpret this result as normal/abnormal . [facility] CentralDnsuvfnVSZNEGOLOC3947-22-99 11:38:00 Test Item Value Reference Range Interpretation Comments WBC (test code = WBC) 7.0 3.7-10.4 [place] [address]-08-22 11:38:00 Test Item Value Reference Range Interpretation Comments RBC (test code = RBC) 3.14 4.20-5.40 [place] [address]-08-22 11:38:00 Test Item Value Reference Range Interpretation Comments Hgb (test code = Hgb) 9.3 12.0-16.0 [place] [address]-08-22 11:38:00 Test Item Value Reference Range Interpretation Comments Hct (test code = Hct) 27.9 36.0-48.0 [place] [address]-08-22 11:38:00 Test Item Value Reference Range Interpretation Comments MCV (test code = MCV) 88.7 80.0-98.0 [place] [address]-08-22 11:38:00 Test Item Value Reference Range Interpretation Comments MCH (test code = MCH) 29.7 pg 27.0-31.0 [place] [address]-08-22 11:38:00 Test Item Value Reference Range Interpretation Comments MCHC (test code = MCHC) 33.5 32.0-36.0 [place] [address]-08-22 11:38:00 Test Item Value Reference Range Interpretation Comments RDW (test code = RDW) 15.7 11.5-14.5 [place] [address]-08-22 11:38:00 Test Item Value Reference Range Interpretation Comments Platelet (test code = Platelet) 418 133-450 [facility] CentralRhhhaboILNSZQYPNF8923-93-46 11:38:00 Test Item Value Reference Range Interpretation Comments MPV (test code = MPV) 9.2 7.4-10.4 [place] [address]-08-22 11:38:00 Test Item Value Reference Range Interpretation Comments Segs (test code = Segs) 57.9 45.0-75.0 [facility] CentralWkiwtfkJDWFWUYPOX6460-73-26 11:38:00 Test Item Value Reference Range Interpretation Comments Lymphocytes (test code = Lymphocytes) 30.0 20.0-40.0 [place] [address]-08-22 11:38:00 Test Item Value Reference Range Interpretation Comments Monocytes (test code = Monocytes) 8.2 2.0-12.0 [place] [address]-08-22 11:38:00 Test Item Value Reference Range Interpretation Comments Eosinophils (test code = 2.9 See_Comment [A utomated message] The Eosinophils) system which ge nerated this result tra nsmitted reference range : <=4.0. The reference r arelis was not used to int erpret this result as normal/abnormal . [facility] CentralYurfusyBFFHEHOKWC3677-74-20 11:38:00 Test Item Value Reference Range Interpretation Comments Basophils (test code = 1.0 See_Comment [Aut omated message] The Basophils) system which ge nerated this result tra nsmitted reference range : <=1.0. The reference r arelis was not used to int erpret this result as normal/abnormal . [place] [address]-08-22 11:38:00 Test Item Value Reference Range Interpretation Comments Neutrophils # (test code = Neutrophils 4.0 1.5-8.1 #) [facility] CentralEzfmgrqNCEVUZNCIY5356-77-07 11:38:00 Test Item Value Reference Range Interpretation Comments Lymphocytes # (test code = Lymphocytes 2.1 1.0-5.5 #) [facility] CentralMwgvyikLTUWFVXCUE4599-41-69 11:38:00 Test Item Value Reference Range Interpretation Comments Monocytes # (test code 0.6 See_Comment [Aut omated message] The = Monocytes #) system which generated this result tra nsmitted reference range : <=0.8. The reference r arelis was not used to int erpret this result as normal/abnormal . [facility] CentralAjwojruVDXOIMAKJJ6610-33-04 11:38:00 Test Item Value Reference Range Interpretation Comments Eosinophils # (test code 0.2 See_Comment [A utomated message] The = Eosinophils #) system whic h generated this result tra nsmitted reference range : <=0.5. The reference r arelis was not used to int erpret this result as normal/abnormal . [facility] CentralFsppykaMTUPOJEQDV7059-07-97 11:38:00 Test Item Value Reference Range Interpretation Comments Basophils # (test code 0.1 See_Comment [Aut omated message] The = Basophils #) system which generated this result tra nsmitted reference range : <=0.2. The reference r arelis was not used to int erpret this result as normal/abnormal . [facility] CentralTiouxjjNKBRZJGSXX7155-68-96 11:38:00 Test Item Value Reference Range Interpretation Comments WBC (test code = WBC) 7.0 3.7-10.4 [place] [address]-08-22 11:38:00 Test Item Value Reference Range Interpretation Comments RBC (test code = RBC) 3.14 4.20-5.40 [place] [address]-08-22 11:38:00 Test Item Value Reference Range Interpretation Comments Hgb (test code = Hgb) 9.3 12.0-16.0 [place] [address]-08-22 11:38:00 Test Item Value Reference Range Interpretation Comments Hct (test code = Hct) 27.9 36.0-48.0 [place] [address]-08-22 11:38:00 Test Item Value Reference Range Interpretation Comments MCV (test code = MCV) 88.7 80.0-98.0 [place] [address]-08-22 11:38:00 Test Item Value Reference Range Interpretation Comments MCH (test code = MCH) 29.7 pg 27.0-31.0 [place] [address]-08-22 11:38:00 Test Item Value Reference Range Interpretation Comments MCHC (test code = MCHC) 33.5 32.0-36.0 [place] [address]-08-22 11:38:00 Test Item Value Reference Range Interpretation Comments RDW (test code = RDW) 15.7 11.5-14.5 [place] [address]-08-22 11:38:00 Test Item Value Reference Range Interpretation Comments Platelet (test code = Platelet) 418 133-450 [facility] CentralOnvhoaqJYXLYJZRTB7703-29-50 11:38:00 Test Item Value Reference Range Interpretation Comments MPV (test code = MPV) 9.2 7.4-10.4 [place] [address]-08-22 11:38:00 Test Item Value Reference Range Interpretation Comments Segs (test code = Segs) 57.9 45.0-75.0 [place] [address]-08-22 11:38:00 Test Item Value Reference Range Interpretation Comments Lymphocytes (test code = Lymphocytes) 30.0 20.0-40.0 [place] [address]-08-22 11:38:00 Test Item Value Reference Range Interpretation Comments Monocytes (test code = Monocytes) 8.2 2.0-12.0 [place] [address]-08-22 11:38:00 Test Item Value Reference Range Interpretation Comments Eosinophils (test code = 2.9 See_Comment [A utomated message] The Eosinophils) system which ge nerated this result tra nsmitted reference range : <=4.0. The reference r arelis was not used to int erpret this result as normal/abnormal . [facility] CentralXeyqmuqXFTWCKMNTJ2956-94-55 11:38:00 Test Item Value Reference Range Interpretation Comments Basophils (test code = 1.0 See_Comment [Aut omated message] The Basophils) system which ge nerated this result tra nsmitted reference range : <=1.0. The reference r arelis was not used to int erpret this result as normal/abnormal . [facility] CentralSapzqgcEHLBFHMXSL3899-30-42 11:38:00 Test Item Value Reference Range Interpretation Comments Neutrophils # (test code = Neutrophils 4.0 1.5-8.1 #) [facility] CentralGupvebiEHWKJIBGYM0334-10-51 11:38:00 Test Item Value Reference Range Interpretation Comments Lymphocytes # (test code = Lymphocytes 2.1 1.0-5.5 #) [facility] CentralDetqbnjFNWRADMWTB2223-25-09 11:38:00 Test Item Value Reference Range Interpretation Comments Monocytes # (test code 0.6 See_Comment [Aut omated message] The = Monocytes #) system which generated this result tra nsmitted reference range : <=0.8. The reference r arelis was not used to int erpret this result as normal/abnormal . [facility] CentralXrjhsweMOUXOWRKSG8130-79-32 11:38:00 Test Item Value Reference Range Interpretation Comments Eosinophils # (test code 0.2 See_Comment [A utomated message] The = Eosinophils #) system whic h generated this result tra nsmitted reference range : <=0.5. The reference r arelis was not used to int erpret this result as normal/abnormal . [facility] CentralVrbxrycUNUSTTINPR3868-33-10 11:38:00 Test Item Value Reference Range Interpretation Comments Basophils # (test code 0.1 See_Comment [Aut omated message] The = Basophils #) system which generated this result tra nsmitted reference range : <=0.2. The reference r arelis was not used to int erpret this result as normal/abnormal . [facility] CentralHwdwbmrNOFZNSVHME8060-24-44 11:38:00 Test Item Value Reference Range Interpretation Comments WBC (test code = WBC) 7.0 3.7-10.4 [facility] CentralHcosaxuGCJRHYONGK6163-07-16 11:38:00 Test Item Value Reference Range Interpretation Comments RBC (test code = RBC) 3.14 4.20-5.40 [place] [address]-08-22 11:38:00 Test Item Value Reference Range Interpretation Comments Hgb (test code = Hgb) 9.3 12.0-16.0 [place] [address]-08-22 11:38:00 Test Item Value Reference Range Interpretation Comments Hct (test code = Hct) 27.9 36.0-48.0 [place] [address]-08-22 11:38:00 Test Item Value Reference Range Interpretation Comments MCV (test code = MCV) 88.7 80.0-98.0 [place] [address]-08-22 11:38:00 Test Item Value Reference Range Interpretation Comments MCH (test code = MCH) 29.7 pg 27.0-31.0 [place] [address]-08-22 11:38:00 Test Item Value Reference Range Interpretation Comments MCHC (test code = MCHC) 33.5 32.0-36.0 [place] [address]-08-22 11:38:00 Test Item Value Reference Range Interpretation Comments RDW (test code = RDW) 15.7 11.5-14.5 [place] [address]-08-22 11:38:00 Test Item Value Reference Range Interpretation Comments Platelet (test code = Platelet) 418 133-450 [facility] CentralDtlnpccYEJKLVLVBH4479-16-38 11:38:00 Test Item Value Reference Range Interpretation Comments MPV (test code = MPV) 9.2 7.4-10.4 [place] [address]-08-22 11:38:00 Test Item Value Reference Range Interpretation Comments Segs (test code = Segs) 57.9 45.0-75.0 [place] [address]-08-22 11:38:00 Test Item Value Reference Range Interpretation Comments Lymphocytes (test code = Lymphocytes) 30.0 20.0-40.0 [place] [address]-08-22 11:38:00 Test Item Value Reference Range Interpretation Comments Monocytes (test code = Monocytes) 8.2 2.0-12.0 [place] [address]-08-22 11:38:00 Test Item Value Reference Range Interpretation Comments Eosinophils (test code = 2.9 See_Comment [A utomated message] The Eosinophils) system which ge nerated this result tra nsmitted reference range : <=4.0. The reference r arelis was not used to int erpret this result as normal/abnormal . [facility] CentralWayqqbxUTTMYEIABH1665-58-39 11:38:00 Test Item Value Reference Range Interpretation Comments Basophils (test code = 1.0 See_Comment [Aut omated message] The Basophils) system which ge nerated this result tra nsmitted reference range : <=1.0. The reference r arelis was not used to int erpret this result as normal/abnormal . [place] [address]-08-22 11:38:00 Test Item Value Reference Range Interpretation Comments Neutrophils # (test code = Neutrophils 4.0 1.5-8.1 #) [facility] CentralYukylttIQPYFBODYR2364-68-95 11:38:00 Test Item Value Reference Range Interpretation Comments Lymphocytes # (test code = Lymphocytes 2.1 1.0-5.5 #) [place] [address]-08-22 11:38:00 Test Item Value Reference Range Interpretation Comments Monocytes # (test code 0.6 See_Comment [Aut omated message] The = Monocytes #) system which generated this result tra nsmitted reference range : <=0.8. The reference r arelis was not used to int erpret this result as normal/abnormal . [facility] CentralNncdaiwBGZVEUXZDX5546-84-76 11:38:00 Test Item Value Reference Range Interpretation Comments Eosinophils # (test code 0.2 See_Comment [A utomated message] The = Eosinophils #) system whic h generated this result tra nsmitted reference range : <=0.5. The reference r arelis was not used to int erpret this result as normal/abnormal . [facility] CentralHgpodckKPBVANBVGB6767-67-20 11:38:00 Test Item Value Reference Range Interpretation Comments Basophils # (test code 0.1 See_Comment [Aut omated message] The = Basophils #) system which generated this result tra nsmitted reference range : <=0.2. The reference r arelis was not used to int erpret this result as normal/abnormal . [facility] CentralVebglsxSYNEDPCTYK7293-33-99 11:38:00 Test Item Value Reference Range Interpretation Comments WBC (test code = WBC) 7.0 3.7-10.4 [place] [address]-08-22 11:38:00 Test Item Value Reference Range Interpretation Comments RBC (test code = RBC) 3.14 4.20-5.40 [facility] CentralPcdpqypEMRAQAJBXK7642-53-38 11:38:00 Test Item Value Reference Range Interpretation Comments Hgb (test code = Hgb) 9.3 12.0-16.0 [facility] CentralUvezoylGIAPOFYFBB9872-18-37 11:38:00 Test Item Value Reference Range Interpretation Comments Hct (test code = Hct) 27.9 36.0-48.0 [facility] CentralOnpuxwlZZMTANYDTD7063-97-52 11:38:00 Test Item Value Reference Range Interpretation Comments MCV (test code = MCV) 88.7 80.0-98.0 [facility] CentralWxmphkmAZRHWQZVRS1333-15-29 11:38:00 Test Item Value Reference Range Interpretation Comments MCH (test code = MCH) 29.7 pg 27.0-31.0 [facility] CentralHkvretpMCZOQDYOCG1699-46-79 11:38:00 Test Item Value Reference Range Interpretation Comments MCHC (test code = MCHC) 33.5 32.0-36.0 [facility] CentralYbrghsbGZGAAYPCHQ4983-37-77 11:38:00 Test Item Value Reference Range Interpretation Comments RDW (test code = RDW) 15.7 11.5-14.5 [facility] CentralUcoytwvQESFKZCLPE8727-16-98 11:38:00 Test Item Value Reference Range Interpretation Comments Platelet (test code = Platelet) 418 133-450 [facility] CentralEoadkpzJQPKYPXQWZ6395-13-33 11:38:00 Test Item Value Reference Range Interpretation Comments MPV (test code = MPV) 9.2 7.4-10.4 [facility] CentralIpupcghOZSCAFXGLD2423-38-00 11:38:00 Test Item Value Reference Range Interpretation Comments Segs (test code = Segs) 57.9 45.0-75.0 [facility]BgndztlRQIAJHUPVA3073-00-14 11:38:00 Test Item Value Reference Range Interpretation Comments Lymphocytes (test code = Lymphocytes) 30.0 20.0-40.0 [place] 139731-08-22 11:38:00 Test Item Value Reference Range Interpretation Comments Monocytes (test code = Monocytes) 8.2 2.0-12.0 [place] 139731-08-22 11:38:00 Test Item Value Reference Range Interpretation Comments Eosinophils (test code = 2.9 See_Comment [A utomated message] The Eosinophils) system which ge nerated this result tra nsmitted reference range : <=4.0. The reference r arelis was not used to int erpret this result as normal/abnormal . [facility] CentralTpwxkzaJCUYLUHZVC8107-70-34 11:38:00 Test Item Value Reference Range Interpretation Comments Basophils (test code = 1.0 See_Comment [Aut omated message] The Basophils) system which ge nerated this result tra nsmitted reference range : <=1.0. The reference r arelis was not used to int erpret this result as normal/abnormal . [facility] CentralEvhwlsuOODQLJVHSQ4307-22-84 11:38:00 Test Item Value Reference Range Interpretation Comments Neutrophils # (test code = Neutrophils 4.0 1.5-8.1 #) [facility] CentralMfzpmfbIDYVIUISSD3933-61-98 11:38:00 Test Item Value Reference Range Interpretation Comments Lymphocytes # (test code = Lymphocytes 2.1 1.0-5.5 #) [facility] CentralRmlnmebBRMZDWYEJO5637-79-88 11:38:00 Test Item Value Reference Range Interpretation Comments Monocytes # (test code 0.6 See_Comment [Aut omated message] The = Monocytes #) system which generated this result tra nsmitted reference range : <=0.8. The reference r arelis was not used to int erpret this result as normal/abnormal . [facility] CentralYsqkplnYIVOFSEYQS3683-06-05 11:38:00 Test Item Value Reference Range Interpretation Comments Eosinophils # (test code 0.2 See_Comment [A utomated message] The = Eosinophils #) system whic h generated this result tra nsmitted reference range : <=0.5. The reference r arelis was not used to int erpret this result as normal/abnormal . [facility] CentralFsrjzenFMBMJYAZKC5236-16-49 11:38:00 Test Item Value Reference Range Interpretation Comments Basophils # (test code 0.1 See_Comment [Aut omated message] The = Basophils #) system which generated this result tra nsmitted reference range : <=0.2. The reference r arelis was not used to int erpret this result as normal/abnormal . [facility] CentralKtigqwnGCDMUKUAPA8844-13-97 11:38:00 Test Item Value Reference Range Interpretation Comments WBC (test code = WBC) 7.0 3.7-10.4 [facility] CentralKavtwkbUFEMXMIIPQ7119-97-09 11:38:00 Test Item Value Reference Range Interpretation Comments RBC (test code = RBC) 3.14 4.20-5.40 [facility] CentralTnmnujnZUGBRKPQQA1401-43-28 11:38:00 Test Item Value Reference Range Interpretation Comments Hgb (test code = Hgb) 9.3 12.0-16.0 [facility] CentralYvbcmbwHBAJAJMBXW5421-12-91 11:38:00 Test Item Value Reference Range Interpretation Comments Hct (test code = Hct) 27.9 36.0-48.0 [facility] CentralWdjcqhtMRDOLCPGFD3854-27-87 11:38:00 Test Item Value Reference Range Interpretation Comments MCV (test code = MCV) 88.7 80.0-98.0 [facility] CentralAdqaychOCVVWSWVFA8658-49-22 11:38:00 Test Item Value Reference Range Interpretation Comments MCH (test code = MCH) 29.7 pg 27.0-31.0 [facility] CentralJwayucgSCNBPQHLBU2103-43-46 11:38:00 Test Item Value Reference Range Interpretation Comments MCHC (test code = MCHC) 33.5 32.0-36.0 [facility] CentralSuojjzwJPEPJAFZGU2428-71-58 11:38:00 Test Item Value Reference Range Interpretation Comments RDW (test code = RDW) 15.7 11.5-14.5 [facility] CentralWdisvlsVFHCUYRNOV4039-48-43 11:38:00 Test Item Value Reference Range Interpretation Comments Platelet (test code = Platelet) 418 133-450 [facility] CentralYzlaeicNLIXBZZWRD5789-16-66 11:38:00 Test Item Value Reference Range Interpretation Comments MPV (test code = MPV) 9.2 7.4-10.4 [facility] CentralXeyqqshVMBPVRIVUL7311-70-73 11:38:00 Test Item Value Reference Range Interpretation Comments Segs (test code = Segs) 57.9 45.0-75.0 [facility] CentralCoyxnaeSWVYPJDSLT9729-90-81 11:38:00 Test Item Value Reference Range Interpretation Comments Lymphocytes (test code = Lymphocytes) 30.0 20.0-40.0 [facility] CentralRcauqybHVITAQDHQA6851-81-05 11:38:00 Test Item Value Reference Range Interpretation Comments Monocytes (test code = Monocytes) 8.2 2.0-12.0 [place] 139731-08-22 11:38:00 Test Item Value Reference Range Interpretation Comments Eosinophils (test code = 2.9 See_Comment [A utomated message] The Eosinophils) system which ge nerated this result tra nsmitted reference range : <=4.0. The reference r arelis was not used to int erpret this result as normal/abnormal . [place] 139731-08-22 11:38:00 Test Item Value Reference Range Interpretation Comments Basophils (test code = 1.0 See_Comment [Aut omated message] The Basophils) system which ge nerated this result tra nsmitted reference range : <=1.0. The reference r arelis was not used to int erpret this result as normal/abnormal . [place] 139731-08-22 11:38:00 Test Item Value Reference Range Interpretation Comments Neutrophils # (test code = Neutrophils 4.0 1.5-8.1 #) [place] 139731-08-22 11:38:00 Test Item Value Reference Range Interpretation Comments Lymphocytes # (test code = Lymphocytes 2.1 1.0-5.5 #) [place] 139731-08-22 11:38:00 Test Item Value Reference Range Interpretation Comments Monocytes # (test code 0.6 See_Comment [Aut omated message] The = Monocytes #) system which generated this result tra nsmitted reference range : <=0.8. The reference r arelis was not used to int erpret this result as normal/abnormal . [place] 139731-08-22 11:38:00 Test Item Value Reference Range Interpretation Comments Eosinophils # (test code 0.2 See_Comment [A utomated message] The = Eosinophils #) system wh h generated this result tra nsmitted reference range : <=0.5. The reference r arelis was not used to int erpret this result as normal/abnormal . [place] 1397[address]-08-22 11:38:00 Test Item Value Reference Range Interpretation Comments Basophils # (test code 0.1 See_Comment [Aut omated message] The = Basophils #) system which generated this result tra nsmitted reference range : <=0.2. The reference r arelis was not used to int erpret this result as normal/abnormal . [place] 1397[address]-08-22 11:38:00 Test Item Value Reference Range Interpretation Comments WBC (test code = WBC) 7.0 3.7-10.4 [facility] CentralLlzuwppNRLVRFYFJA8480-75-14 11:38:00 Test Item Value Reference Range Interpretation Comments RBC (test code = RBC) 3.14 4.20-5.40 [facility] CentralOqkmxptYRXZDJXTPA9085-20-43 11:38:00 Test Item Value Reference Range Interpretation Comments Hgb (test code = Hgb) 9.3 12.0-16.0 [facility] CentralFblfypkCWIYUHBYWF2087-32-92 11:38:00 Test Item Value Reference Range Interpretation Comments Hct (test code = Hct) 27.9 36.0-48.0 [facility] CentralUjjfjkrEEODHDLLDA6880-08-28 11:38:00 Test Item Value Reference Range Interpretation Comments WBC (test code = WBC) 7.0 3.7-10.4 [facility] CentralIqbbsvwNJRDPTHJCY4162-30-66 11:38:00 Test Item Value Reference Range Interpretation Comments RBC (test code = RBC) 3.14 4.20-5.40 [facility] CentralMkejampOWICZVGWZA6973-67-00 11:38:00 Test Item Value Reference Range Interpretation Comments Hgb (test code = Hgb) 9.3 12.0-16.0 [facility] CentralJktjxcvCPCSNVTFOJ1142-65-01 11:38:00 Test Item Value Reference Range Interpretation Comments Hct (test code = Hct) 27.9 36.0-48.0 [facility] CentralAaakbytTXIIVCDEWC5251-40-81 11:38:00 Test Item Value Reference Range Interpretation Comments MCV (test code = MCV) 88.7 80.0-98.0 [facility] CentralKcftaywGNYZIUJWLR7434-12-50 11:38:00 Test Item Value Reference Range Interpretation Comments MCH (test code = MCH) 29.7 pg 27.0-31.0 [facility] CentralTzwvsfyRIRBUUDIUI5911-75-91 11:38:00 Test Item Value Reference Range Interpretation Comments MCHC (test code = MCHC) 33.5 32.0-36.0 [facility] CentralNywaecdAOWTDMASFL1159-02-13 11:38:00 Test Item Value Reference Range Interpretation Comments RDW (test code = RDW) 15.7 11.5-14.5 [facility] CentralKpjfrpvUYDIWVBMVA9796-05-52 11:38:00 Test Item Value Reference Range Interpretation Comments MCV (test code = MCV) 88.7 80.0-98.0 [place] 139731-08-22 11:38:00 Test Item Value Reference Range Interpretation Comments Platelet (test code = Platelet) 418 133-450 [place] 139731-08-22 11:38:00 Test Item Value Reference Range Interpretation Comments MPV (test code = MPV) 9.2 7.4-10.4 [place] 139731-08-22 11:38:00 Test Item Value Reference Range Interpretation Comments Segs (test code = Segs) 57.9 45.0-75.0 [facility] CentralMlcvucqWARCJAOVQV7571-96-11 11:38:00 Test Item Value Reference Range Interpretation Comments Lymphocytes (test code = Lymphocytes) 30.0 20.0-40.0 [place] [address]-08-22 11:38:00 Test Item Value Reference Range Interpretation Comments Monocytes (test code = Monocytes) 8.2 2.0-12.0 [facility] CentralJqjbdohUXKDAGMFAY6480-67-55 11:38:00 Test Item Value Reference Range Interpretation Comments Eosinophils (test code = 2.9 See_Comment [A utomated message] The Eosinophils) system which ge nerated this result tra nsmitted reference range : <=4.0. The reference r arelis was not used to int erpret this result as normal/abnormal . [facility] CentralNzoftyiYZMSKGXBIS2851-00-90 11:38:00 Test Item Value Reference Range Interpretation Comments Basophils (test code = 1.0 See_Comment [Aut omated message] The Basophils) system which ge nerated this result tra nsmitted reference range : <=1.0. The reference r arelis was not used to int erpret this result as normal/abnormal . [facility] CentralNvwmzktHCCQKZLFCY8416-24-91 11:38:00 Test Item Value Reference Range Interpretation Comments Neutrophils # (test code = Neutrophils 4.0 1.5-8.1 #) [facility] CentralOjuzaslTSOPLIEJYR8720-75-11 11:38:00 Test Item Value Reference Range Interpretation Comments Lymphocytes # (test code = Lymphocytes 2.1 1.0-5.5 #) [place] [address]-08-22 11:38:00 Test Item Value Reference Range Interpretation Comments Monocytes # (test code 0.6 See_Comment [Aut omated message] The = Monocytes #) system which generated this result tra nsmitted reference range : <=0.8. The reference r arelis was not used to int erpret this result as normal/abnormal . [facility] CentralCbatzfoFJTKCYUSNN2243-28-78 11:38:00 Test Item Value Reference Range Interpretation Comments MCH (test code = MCH) 29.7 pg 27.0-31.0 [facility] CentralWuuajwdOUJVXOHUAM0819-44-86 11:38:00 Test Item Value Reference Range Interpretation Comments Eosinophils # (test code 0.2 See_Comment [A utomated message] The = Eosinophils #) system whic h generated this result tra nsmitted reference range : <=0.5. The reference r arelis was not used to int erpret this result as normal/abnormal . [facility] CentralVvqqyezROPAZHDNNP0232-11-83 11:38:00 Test Item Value Reference Range Interpretation Comments Basophils # (test code 0.1 See_Comment [Aut omated message] The = Basophils #) system which generated this result tra nsmitted reference range : <=0.2. The reference r arelis was not used to int erpret this result as normal/abnormal . [facility] CentralMalqlidGIPKEONXDN7025-24-07 11:38:00 Test Item Value Reference Range Interpretation Comments MCHC (test code = MCHC) 33.5 32.0-36.0 [facility] CentralVwacdgqLGFAYZLADC3899-75-00 11:38:00 Test Item Value Reference Range Interpretation Comments RDW (test code = RDW) 15.7 11.5-14.5 [facility] CentralAbforqyCLGFGFNTHI6447-69-72 11:38:00 Test Item Value Reference Range Interpretation Comments Platelet (test code = Platelet) 418 133-450 [facility] CentralSqrbwyaVUINOMWSBD3477-74-21 11:38:00 Test Item Value Reference Range Interpretation Comments MPV (test code = MPV) 9.2 7.4-10.4 [facility] CentralCluabvxKOCYWOBNMT7652-66-70 11:38:00 Test Item Value Reference Range Interpretation Comments Segs (test code = Segs) 57.9 45.0-75.0 [facility] CentralZcswxjaRJHRGHBVXV3019-22-38 11:38:00 Test Item Value Reference Range Interpretation Comments Lymphocytes (test code = Lymphocytes) 30.0 20.0-40.0 [facility] CentralRhkuaroELTPFHSWYL6616-49-56 11:38:00 Test Item Value Reference Range Interpretation Comments Monocytes (test code = Monocytes) 8.2 2.0-12.0 [place] [address]731-08-22 11:38:00 Test Item Value Reference Range Interpretation Comments Eosinophils (test code = 2.9 See_Comment [A utomated message] The Eosinophils) system which ge nerated this result tra nsmitted reference range : <=4.0. The reference r arelis was not used to int erpret this result as normal/abnormal . [place] 139731-08-22 11:38:00 Test Item Value Reference Range Interpretation Comments Basophils (test code = 1.0 See_Comment [Aut omated message] The Basophils) system which ge nerated this result tra nsmitted reference range : <=1.0. The reference r arelis was not used to int erpret this result as normal/abnormal . [place] 139731-08-22 11:38:00 Test Item Value Reference Range Interpretation Comments Neutrophils # (test code = Neutrophils 4.0 1.5-8.1 #) [place] 139731-08-22 11:38:00 Test Item Value Reference Range Interpretation Comments Lymphocytes # (test code = Lymphocytes 2.1 1.0-5.5 #) [place] 1397[address]-08-22 11:38:00 Test Item Value Reference Range Interpretation Comments Monocytes # (test code 0.6 See_Comment [Aut omated message] The = Monocytes #) system which generated this result tra nsmitted reference range : <=0.8. The reference r arelis was not used to int erpret this result as normal/abnormal . [place] [address]731-08-22 11:38:00 Test Item Value Reference Range Interpretation Comments Eosinophils # (test code 0.2 See_Comment [A utomated message] The = Eosinophils #) system whic h generated this result tra nsmitted reference range : <=0.5. The reference r arelis was not used to int erpret this result as normal/abnormal . [place] [address]-08-22 11:38:00 Test Item Value Reference Range Interpretation Comments Basophils # (test code 0.1 See_Comment [Aut omated message] The = Basophils #) system which generated this result tra nsmitted reference range : <=0.2. The reference r arelis was not used to int erpret this result as normal/abnormal . [facility] CentralUpwsuusIDCMCYVPOL6410-67-54 11:38:00 Test Item Value Reference Range Interpretation Comments WBC (test code = WBC) 7.0 3.7-10.4 [facility] CentralLhtbrcsXIIZIYPUAP6717-19-92 11:38:00 Test Item Value Reference Range Interpretation Comments RBC (test code = RBC) 3.14 4.20-5.40 [facility] CentralAznnqnnSYWKBNZBEW6746-56-59 11:38:00 Test Item Value Reference Range Interpretation Comments Hgb (test code = Hgb) 9.3 12.0-16.0 [facility] CentralQygydasKYXCRXVZPT5215-82-55 11:38:00 Test Item Value Reference Range Interpretation Comments Hct (test code = Hct) 27.9 36.0-48.0 [facility] CentralFueulhbFBGQURHAWM7041-97-08 11:38:00 Test Item Value Reference Range Interpretation Comments MCV (test code = MCV) 88.7 80.0-98.0 [facility] CentralFdsizgaPJABUSJDFC3598-69-56 11:38:00 Test Item Value Reference Range Interpretation Comments MCH (test code = MCH) 29.7 pg 27.0-31.0 [facility] CentralHaydaivQIVBKCSWWA2182-83-21 11:38:00 Test Item Value Reference Range Interpretation Comments MCHC (test code = MCHC) 33.5 32.0-36.0 [facility] CentralPhkspghNMNHEAMRNM7424-35-60 11:38:00 Test Item Value Reference Range Interpretation Comments RDW (test code = RDW) 15.7 11.5-14.5 [facility] CentralJdnhyfjCRPWECLBOF3125-76-08 11:38:00 Test Item Value Reference Range Interpretation Comments Platelet (test code = Platelet) 418 133-450 [facility] CentralQuauvvkFDYVIQPJAT9957-73-27 11:38:00 Test Item Value Reference Range Interpretation Comments MPV (test code = MPV) 9.2 7.4-10.4 [facility] CentralVfvqubwHDAGKGIEHP2742-47-44 11:38:00 Test Item Value Reference Range Interpretation Comments Segs (test code = Segs) 57.9 45.0-75.0 [facility] CentralXdgryxrRZUHZQUJFW2886-21-53 11:38:00 Test Item Value Reference Range Interpretation Comments Lymphocytes (test code = Lymphocytes) 30.0 20.0-40.0 [facility] CentralDsqjrmqWTEDVRSUMH6300-56-69 11:38:00 Test Item Value Reference Range Interpretation Comments Monocytes (test code = Monocytes) 8.2 2.0-12.0 [place] [address]-08-22 11:38:00 Test Item Value Reference Range Interpretation Comments Eosinophils (test code = 2.9 See_Comment [A utomated message] The Eosinophils) system which ge nerated this result tra nsmitted reference range : <=4.0. The reference r arelis was not used to int erpret this result as normal/abnormal . [place] [address]-08-22 11:38:00 Test Item Value Reference Range Interpretation Comments Basophils (test code = 1.0 See_Comment [Aut omated message] The Basophils) system which ge nerated this result tra nsmitted reference range : <=1.0. The reference r arelis was not used to int erpret this result as normal/abnormal . [place] [address]-08-22 11:38:00 Test Item Value Reference Range Interpretation Comments Neutrophils # (test code = Neutrophils 4.0 1.5-8.1 #) [place] [address]-08-22 11:38:00 Test Item Value Reference Range Interpretation Comments Lymphocytes # (test code = Lymphocytes 2.1 1.0-5.5 #) [place] [address]-08-22 11:38:00 Test Item Value Reference Range Interpretation Comments Monocytes # (test code 0.6 See_Comment [Aut omated message] The = Monocytes #) system which generated this result tra nsmitted reference range : <=0.8. The reference r arelis was not used to int erpret this result as normal/abnormal . [place] [address]-08-22 11:38:00 Test Item Value Reference Range Interpretation Comments Eosinophils # (test code 0.2 See_Comment [A utomated message] The = Eosinophils #) system whic h generated this result tra nsmitted reference range : <=0.5. The reference r arelis was not used to int erpret this result as normal/abnormal . [place] [address]-08-22 11:38:00 Test Item Value Reference Range Interpretation Comments Basophils # (test code 0.1 See_Comment [Aut omated message] The = Basophils #) system which generated this result tra nsmitted reference range : <=0.2. The reference r arelis was not used to int erpret this result as normal/abnormal . [facility] CentralPqkioeaOZEBMZWEQQ5568-41-48 11:38:00 Test Item Value Reference Range Interpretation Comments WBC (test code = WBC) 7.0 3.7-10.4 [place] [address]-08-22 11:38:00 Test Item Value Reference Range Interpretation Comments RBC (test code = RBC) 3.14 4.20-5.40 [place] [address]-08-22 11:38:00 Test Item Value Reference Range Interpretation Comments Hgb (test code = Hgb) 9.3 12.0-16.0 [place] [address]-08-22 11:38:00 Test Item Value Reference Range Interpretation Comments Hct (test code = Hct) 27.9 36.0-48.0 [place] [address]-08-22 11:38:00 Test Item Value Reference Range Interpretation Comments MCV (test code = MCV) 88.7 80.0-98.0 [facility] CentralJguuvhxALRZOJBQLQ3678-10-14 11:38:00 Test Item Value Reference Range Interpretation Comments MCH (test code = MCH) 29.7 pg 27.0-31.0 [facility] CentralNkcqpzsWVBHACAHTF6422-32-88 11:38:00 Test Item Value Reference Range Interpretation Comments MCHC (test code = MCHC) 33.5 32.0-36.0 [facility] CentralOgbuwlwOJQLRSHOIM4565-07-92 11:38:00 Test Item Value Reference Range Interpretation Comments RDW (test code = RDW) 15.7 11.5-14.5 [facility] CentralPrmvankPNFXGYBAVN3070-91-46 11:38:00 Test Item Value Reference Range Interpretation Comments Platelet (test code = Platelet) 418 133-450 [facility] CentralZfppvimGWSCJGURLW2405-44-74 11:38:00 Test Item Value Reference Range Interpretation Comments MPV (test code = MPV) 9.2 7.4-10.4 [facility] CentralAqnaygcXTMMHMOSON6235-57-21 11:38:00 Test Item Value Reference Range Interpretation Comments Segs (test code = Segs) 57.9 45.0-75.0 [place] [address]-08-22 11:38:00 Test Item Value Reference Range Interpretation Comments Lymphocytes (test code = Lymphocytes) 30.0 20.0-40.0 [place] [address]-08-22 11:38:00 Test Item Value Reference Range Interpretation Comments Monocytes (test code = Monocytes) 8.2 2.0-12.0 [place] [address]-08-22 11:38:00 Test Item Value Reference Range Interpretation Comments Eosinophils (test code = 2.9 See_Comment [A utomated message] The Eosinophils) system which ge nerated this result tra nsmitted reference range : <=4.0. The reference r arelis was not used to int erpret this result as normal/abnormal . [place] [address]-08-22 11:38:00 Test Item Value Reference Range Interpretation Comments Basophils (test code = 1.0 See_Comment [Aut omated message] The Basophils) system which ge nerated this result tra nsmitted reference range : <=1.0. The reference r arelis was not used to int erpret this result as normal/abnormal . [facility] CentralWqucmkhWPMLPRUWEI5405-46-64 11:38:00 Test Item Value Reference Range Interpretation Comments Neutrophils # (test code = Neutrophils 4.0 1.5-8.1 #) [facility] CentralGwrxlqpFGFFDZOTHM3556-23-84 11:38:00 Test Item Value Reference Range Interpretation Comments Lymphocytes # (test code = Lymphocytes 2.1 1.0-5.5 #) [facility] CentralMwbvarfSTLHAYELZW2979-89-10 11:38:00 Test Item Value Reference Range Interpretation Comments Monocytes # (test code 0.6 See_Comment [Aut omated message] The = Monocytes #) system which generated this result tra nsmitted reference range : <=0.8. The reference r arelis was not used to int erpret this result as normal/abnormal . [place] [address]-08-22 11:38:00 Test Item Value Reference Range Interpretation Comments Eosinophils # (test code 0.2 See_Comment [A utomated message] The = Eosinophils #) system whic h generated this result tra nsmitted reference range : <=0.5. The reference r arelis was not used to int erpret this result as normal/abnormal . [facility] CentralBeantnnPWAAWBPJAA9103-69-83 11:38:00 Test Item Value Reference Range Interpretation Comments Basophils # (test code 0.1 See_Comment [Aut omated message] The = Basophils #) system which generated this result tra nsmitted reference range : <=0.2. The reference r arelis was not used to int erpret this result as normal/abnormal . [facility] CentralGhxzgpoFSLJRIPBEY4143-79-17 11:38:00 Test Item Value Reference Range Interpretation Comments WBC (test code = WBC) 7.0 3.7-10.4 [facility] CentralAdzxckgUFJSTPHWAM6559-79-67 11:38:00 Test Item Value Reference Range Interpretation Comments RBC (test code = RBC) 3.14 4.20-5.40 [facility] CentralQamiuzlHWEUNCSMXL6323-86-99 11:38:00 Test Item Value Reference Range Interpretation Comments Hgb (test code = Hgb) 9.3 12.0-16.0 [place] [address]-08-22 11:38:00 Test Item Value Reference Range Interpretation Comments Hct (test code = Hct) 27.9 36.0-48.0 [place] [address]-08-22 11:38:00 Test Item Value Reference Range Interpretation Comments MCV (test code = MCV) 88.7 80.0-98.0 [facility] CentralBjzbpbhNORPCSGBAI5829-22-72 11:38:00 Test Item Value Reference Range Interpretation Comments MCH (test code = MCH) 29.7 pg 27.0-31.0 [facility] CentralNqfmynyLKQQRAHOYB7679-85-50 11:38:00 Test Item Value Reference Range Interpretation Comments MCHC (test code = MCHC) 33.5 32.0-36.0 [facility] CentralLkxvtjrBPUFWZFVWD1453-61-92 11:38:00 Test Item Value Reference Range Interpretation Comments RDW (test code = RDW) 15.7 11.5-14.5 [facility] CentralZolgcjzTYACYCJEES8394-08-07 11:38:00 Test Item Value Reference Range Interpretation Comments Platelet (test code = Platelet) 418 133-450 [facility] CentralAnpywtgJQPHRRZRLE4258-94-75 11:38:00 Test Item Value Reference Range Interpretation Comments MPV (test code = MPV) 9.2 7.4-10.4 [place] 139731-08-22 11:38:00 Test Item Value Reference Range Interpretation Comments Segs (test code = Segs) 57.9 45.0-75.0 [facility] CentralRioflocTFFZVOXSMQ6230-82-08 11:38:00 Test Item Value Reference Range Interpretation Comments Lymphocytes (test code = Lymphocytes) 30.0 20.0-40.0 [place] 139731-08-22 11:38:00 Test Item Value Reference Range Interpretation Comments Monocytes (test code = Monocytes) 8.2 2.0-12.0 [place] 139731-08-22 11:38:00 Test Item Value Reference Range Interpretation Comments Eosinophils (test code = 2.9 See_Comment [A utomated message] The Eosinophils) system which ge nerated this result tra nsmitted reference range : <=4.0. The reference r arelis was not used to int erpret this result as normal/abnormal . [facility] CentralZvbgnfqZSZQTNPHPE7367-66-54 11:38:00 Test Item Value Reference Range Interpretation Comments Basophils (test code = 1.0 See_Comment [Aut omated message] The Basophils) system which ge nerated this result tra nsmitted reference range : <=1.0. The reference r arelis was not used to int erpret this result as normal/abnormal . [facility] CentralXjlednwPPLTEHZKEQ5763-06-12 11:38:00 Test Item Value Reference Range Interpretation Comments Neutrophils # (test code = Neutrophils 4.0 1.5-8.1 #) [facility] CentralUmvsubdKFBFPNEHBV7680-68-00 11:38:00 Test Item Value Reference Range Interpretation Comments Lymphocytes # (test code = Lymphocytes 2.1 1.0-5.5 #) [facility] CentralKqywutmOFAIUKLOKO2662-31-84 11:38:00 Test Item Value Reference Range Interpretation Comments Monocytes # (test code 0.6 See_Comment [Aut omated message] The = Monocytes #) system which generated this result tra nsmitted reference range : <=0.8. The reference r arelis was not used to int erpret this result as normal/abnormal . [facility] CentralYdhqzgiTXLPWJOHFM7318-15-58 11:38:00 Test Item Value Reference Range Interpretation Comments Eosinophils # (test code 0.2 See_Comment [A utomated message] The = Eosinophils #) system ic h generated this result tra nsmitted reference range : <=0.5. The reference r arelis was not used to int erpret this result as normal/abnormal . [facility] CentralJtawrsbCTYBMGBHLP6840-17-93 11:38:00 Test Item Value Reference Range Interpretation Comments Basophils # (test code 0.1 See_Comment [Aut omated message] The = Basophils #) system which generated this result tra nsmitted reference range : <=0.2. The reference r arelis was not used to int erpret this result as normal/abnormal . [facility] CentralAesqysrDHMPUZXLKH8161-41-16 11:38:00 Test Item Value Reference Range Interpretation Comments WBC (test code = WBC) 7.0 3.7-10.4 [facility] CentralJicsoddIVZCKLCWPW1606-00-28 11:38:00 Test Item Value Reference Range Interpretation Comments RBC (test code = RBC) 3.14 4.20-5.40 [facility] CentralRmamcagXLNKLGWVUC2302-84-16 11:38:00 Test Item Value Reference Range Interpretation Comments Hgb (test code = Hgb) 9.3 12.0-16.0 [facility] CentralYtcxtrmJVDYGKPFMV9888-10-14 11:38:00 Test Item Value Reference Range Interpretation Comments Hct (test code = Hct) 27.9 36.0-48.0 [facility] CentralEjrmvrmTIAORQXRID4320-35-16 11:38:00 Test Item Value Reference Range Interpretation Comments MCV (test code = MCV) 88.7 80.0-98.0 [facility] CentralSnlmfpzHYMKGNIBKO5711-24-56 11:38:00 Test Item Value Reference Range Interpretation Comments MCH (test code = MCH) 29.7 pg 27.0-31.0 [facility] CentralYtpkcyeSDXAXURSGU3347-20-93 11:38:00 Test Item Value Reference Range Interpretation Comments MCHC (test code = MCHC) 33.5 32.0-36.0 [facility] CentralKwcyehdTCRDXLJMDW2176-83-02 11:38:00 Test Item Value Reference Range Interpretation Comments RDW (test code = RDW) 15.7 11.5-14.5 [facility] CentralRexbucgBRCECOUJPU6192-89-68 11:38:00 Test Item Value Reference Range Interpretation Comments Platelet (test code = Platelet) 418 133-450 [facility] CentralHnohiskSBYTIMYGXG5120-83-71 11:38:00 Test Item Value Reference Range Interpretation Comments MPV (test code = MPV) 9.2 7.4-10.4 [facility] CentralQztoduwNIMPPQDVOY5098-10-38 11:38:00 Test Item Value Reference Range Interpretation Comments Segs (test code = Segs) 57.9 45.0-75.0 [place] 139731-08-22 11:38:00 Test Item Value Reference Range Interpretation Comments Lymphocytes (test code = Lymphocytes) 30.0 20.0-40.0 [place] 139731-08-22 11:38:00 Test Item Value Reference Range Interpretation Comments Monocytes (test code = Monocytes) 8.2 2.0-12.0 [facility] CentralByzyiccSKFDYSGJFZ1939-14-56 11:38:00 Test Item Value Reference Range Interpretation Comments Eosinophils (test code = 2.9 See_Comment [A utomated message] The Eosinophils) system which ge nerated this result tra nsmitted reference range : <=4.0. The reference r arelis was not used to int erpret this result as normal/abnormal . [facility] CentralZtokwxoYBXLNVLMQM2324-16-10 11:38:00 Test Item Value Reference Range Interpretation Comments Basophils (test code = 1.0 See_Comment [Aut omated message] The Basophils) system which ge nerated this result tra nsmitted reference range : <=1.0. The reference r arelis was not used to int erpret this result as normal/abnormal . [facility] CentralIwwlfbbMBSAFNMMFQ3678-47-95 11:38:00 Test Item Value Reference Range Interpretation Comments Neutrophils # (test code = Neutrophils 4.0 1.5-8.1 #) [facility] CentralNvnumgcTXJAMGLTBL1734-62-80 11:38:00 Test Item Value Reference Range Interpretation Comments Lymphocytes # (test code = Lymphocytes 2.1 1.0-5.5 #) [facility] CentralHeiycmbIMHMUFITOQ1341-33-38 11:38:00 Test Item Value Reference Range Interpretation Comments Monocytes # (test code 0.6 See_Comment [Aut omated message] The = Monocytes #) system which generated this result tra nsmitted reference range : <=0.8. The reference r arelis was not used to int erpret this result as normal/abnormal . [facility] CentralIveqefaUKLCZYBNIG6829-92-23 11:38:00 Test Item Value Reference Range Interpretation Comments Eosinophils # (test code 0.2 See_Comment [A utomated message] The = Eosinophils #) system whic h generated this result tra nsmitted reference range : <=0.5. The reference r arelis was not used to int erpret this result as normal/abnormal . [place] 139731-08-22 11:38:00 Test Item Value Reference Range Interpretation Comments Basophils # (test code 0.1 See_Comment [Aut omated message] The = Basophils #) system which generated this result tra nsmitted reference range : <=0.2. The reference r arelis was not used to int erpret this result as normal/abnormal . [facility] CentralGjgsnyqTPZVWSCEIW2867-75-51 11:38:00 Test Item Value Reference Range Interpretation Comments WBC (test code = WBC) 7.0 3.7-10.4 [facility] CentralPsjgihvYWLBIGVDAM7607-93-56 11:38:00 Test Item Value Reference Range Interpretation Comments RBC (test code = RBC) 3.14 4.20-5.40 [place] 139731-08-22 11:38:00 Test Item Value Reference Range Interpretation Comments Hgb (test code = Hgb) 9.3 12.0-16.0 [place] 139731-08-22 11:38:00 Test Item Value Reference Range Interpretation Comments Hct (test code = Hct) 27.9 36.0-48.0 [facility] CentralXnylgqjNZDSEZSGII4695-71-43 11:38:00 Test Item Value Reference Range Interpretation Comments MCV (test code = MCV) 88.7 80.0-98.0 [facility] CentralBpfpzugJYYVQITTAP6217-39-15 11:38:00 Test Item Value Reference Range Interpretation Comments MCH (test code = MCH) 29.7 pg 27.0-31.0 [facility] CentralHllfuaeNABJXBDXVC0601-20-69 11:38:00 Test Item Value Reference Range Interpretation Comments MCHC (test code = MCHC) 33.5 32.0-36.0 [facility] CentralBsgpxilAPRBBZSIDF5822-09-77 11:38:00 Test Item Value Reference Range Interpretation Comments RDW (test code = RDW) 15.7 11.5-14.5 [place] 139731-08-22 11:38:00 Test Item Value Reference Range Interpretation Comments Platelet (test code = Platelet) 418 133-450 [facility] CentralXbrrmcjEBEUTGWUMD5932-98-68 11:38:00 Test Item Value Reference Range Interpretation Comments MPV (test code = MPV) 9.2 7.4-10.4 [place] 139731-08-22 11:38:00 Test Item Value Reference Range Interpretation Comments Segs (test code = Segs) 57.9 45.0-75.0 [place] 139731-08-22 11:38:00 Test Item Value Reference Range Interpretation Comments Lymphocytes (test code = Lymphocytes) 30.0 20.0-40.0 [place] 1397[address]-08-22 11:38:00 Test Item Value Reference Range Interpretation Comments Monocytes (test code = Monocytes) 8.2 2.0-12.0 [place] [address]-08-22 11:38:00 Test Item Value Reference Range Interpretation Comments Eosinophils (test code = 2.9 See_Comment [A utomated message] The Eosinophils) system which ge nerated this result tra nsmitted reference range : <=4.0. The reference r arelis was not used to int erpret this result as normal/abnormal . [place] 1397[address]-08-22 11:38:00 Test Item Value Reference Range Interpretation Comments Basophils (test code = 1.0 See_Comment [Aut omated message] The Basophils) system which ge nerated this result tra nsmitted reference range : <=1.0. The reference r arelis was not used to int erpret this result as normal/abnormal . [place] 1397[address]-08-22 11:38:00 Test Item Value Reference Range Interpretation Comments Neutrophils # (test code = Neutrophils 4.0 1.5-8.1 #) [place] [address]-08-22 11:38:00 Test Item Value Reference Range Interpretation Comments Lymphocytes # (test code = Lymphocytes 2.1 1.0-5.5 #) [place] [address]-08-22 11:38:00 Test Item Value Reference Range Interpretation Comments Monocytes # (test code 0.6 See_Comment [Aut omated message] The = Monocytes #) system which generated this result tra nsmitted reference range : <=0.8. The reference r arelis was not used to int erpret this result as normal/abnormal . [facility] CentralXqwmchlBAUDXUNSZP4194-40-48 11:38:00 Test Item Value Reference Range Interpretation Comments Eosinophils # (test code 0.2 See_Comment [A utomated message] The = Eosinophils #) system whic h generated this result tra nsmitted reference range : <=0.5. The reference r arelis was not used to int erpret this result as normal/abnormal . [facility] CentralMmfuwwdGLTHGPADBU7326-90-06 11:38:00 Test Item Value Reference Range Interpretation Comments Basophils # (test code 0.1 See_Comment [Aut omated message] The = Basophils #) system which generated this result tra nsmitted reference range : <=0.2. The reference r arelis was not used to int erpret this result as normal/abnormal . [facility] CentralQnfvozfPODKMFBFMO6368-25-44 11:38:00 Test Item Value Reference Range Interpretation Comments WBC (test code = WBC) 7.0 3.7-10.4 [facility] CentralHbjtnodHZTXALXLLN2060-78-29 11:38:00 Test Item Value Reference Range Interpretation Comments RBC (test code = RBC) 3.14 4.20-5.40 [facility] CentralGkqywadLCOFAAXJZF4488-54-20 11:38:00 Test Item Value Reference Range Interpretation Comments Hgb (test code = Hgb) 9.3 12.0-16.0 [facility] CentralYbmvdnhNWXVCWKNZN0081-33-89 11:38:00 Test Item Value Reference Range Interpretation Comments Hct (test code = Hct) 27.9 36.0-48.0 [facility] CentralKsyqctbNQATTZHNIQ1171-23-89 11:38:00 Test Item Value Reference Range Interpretation Comments MCV (test code = MCV) 88.7 80.0-98.0 [facility] CentralUawogvvIPOUAQBXPK8894-98-35 11:38:00 Test Item Value Reference Range Interpretation Comments MCH (test code = MCH) 29.7 pg 27.0-31.0 [facility] CentralJhqijsjEMKWLQSPCH6412-93-89 11:38:00 Test Item Value Reference Range Interpretation Comments MCHC (test code = MCHC) 33.5 32.0-36.0 [facility] CentralIhtwscpHUHISSIUDE1296-25-26 11:38:00 Test Item Value Reference Range Interpretation Comments RDW (test code = RDW) 15.7 11.5-14.5 [facility] CentralWjgijgoYOBIKHWKRS4190-57-47 11:38:00 Test Item Value Reference Range Interpretation Comments Platelet (test code = Platelet) 418 133-450 [facility] CentralYptztydVWNHZFQZWM9744-11-64 11:38:00 Test Item Value Reference Range Interpretation Comments MPV (test code = MPV) 9.2 7.4-10.4 [place] [address]-08-22 11:38:00 Test Item Value Reference Range Interpretation Comments Segs (test code = Segs) 57.9 45.0-75.0 [place] 139731-08-22 11:38:00 Test Item Value Reference Range Interpretation Comments Lymphocytes (test code = Lymphocytes) 30.0 20.0-40.0 [place] 1397[address]-08-22 11:38:00 Test Item Value Reference Range Interpretation Comments Monocytes (test code = Monocytes) 8.2 2.0-12.0 [place] 1397[address]-08-22 11:38:00 Test Item Value Reference Range Interpretation Comments Eosinophils (test code = 2.9 See_Comment [A utomated message] The Eosinophils) system which ge nerated this result tra nsmitted reference range : <=4.0. The reference r arelis was not used to int erpret this result as normal/abnormal . [place] [address]-08-22 11:38:00 Test Item Value Reference Range Interpretation Comments Basophils (test code = 1.0 See_Comment [Aut omated message] The Basophils) system which ge nerated this result tra nsmitted reference range : <=1.0. The reference r arelis was not used to int erpret this result as normal/abnormal . [facility] CentralVqjowtkORFSCZTBYR2860-73-75 11:38:00 Test Item Value Reference Range Interpretation Comments Neutrophils # (test code = Neutrophils 4.0 1.5-8.1 #) [facility] CentralXjrqswtDQRYIZFTUJ9024-08-83 11:38:00 Test Item Value Reference Range Interpretation Comments Lymphocytes # (test code = Lymphocytes 2.1 1.0-5.5 #) [place] [address]-08-22 11:38:00 Test Item Value Reference Range Interpretation Comments Monocytes # (test code 0.6 See_Comment [Aut omated message] The = Monocytes #) system which generated this result tra nsmitted reference range : <=0.8. The reference r arelis was not used to int erpret this result as normal/abnormal . [place] [address]-08-22 11:38:00 Test Item Value Reference Range Interpretation Comments Eosinophils # (test code 0.2 See_Comment [A utomated message] The = Eosinophils #) system whic h generated this result tra nsmitted reference range : <=0.5. The reference r arelis was not used to int erpret this result as normal/abnormal . [facility] CentralSokgqbmTHEZZPWMGY4690-26-25 11:38:00 Test Item Value Reference Range Interpretation Comments Basophils # (test code 0.1 See_Comment [Aut omated message] The = Basophils #) system which generated this result tra nsmitted reference range : <=0.2. The reference r arelis was not used to int erpret this result as normal/abnormal . [facility] CentralWrhrvquWITIWRZHBW6423-38-27 11:38:00 Test Item Value Reference Range Interpretation Comments WBC (test code = WBC) 7.0 3.7-10.4 [facility] CentralXmgovisESRBXTFENB1379-99-24 11:38:00 Test Item Value Reference Range Interpretation Comments RBC (test code = RBC) 3.14 4.20-5.40 [facility] CentralDzlpsmfZUXHNPGOUF6661-38-09 11:38:00 Test Item Value Reference Range Interpretation Comments Hgb (test code = Hgb) 9.3 12.0-16.0 [facility] CentralSssanhzKHFHAHSSME7555-81-24 11:38:00 Test Item Value Reference Range Interpretation Comments Hct (test code = Hct) 27.9 36.0-48.0 [facility] CentralAupszpsLIRXEBSKQF8804-62-45 11:38:00 Test Item Value Reference Range Interpretation Comments MCV (test code = MCV) 88.7 80.0-98.0 [facility] CentralCrnkmuiJGKJQPVIED8712-63-45 11:38:00 Test Item Value Reference Range Interpretation Comments MCH (test code = MCH) 29.7 pg 27.0-31.0 [facility] CentralPvlcoduZOUOBMCOWW4099-10-72 11:38:00 Test Item Value Reference Range Interpretation Comments MCHC (test code = MCHC) 33.5 32.0-36.0 [facility] CentralBrcpqsqGDEGZKDWEG4702-34-40 11:38:00 Test Item Value Reference Range Interpretation Comments RDW (test code = RDW) 15.7 11.5-14.5 [facility] CentralShdnuwnUSRCXNWHTK5151-30-55 11:38:00 Test Item Value Reference Range Interpretation Comments Platelet (test code = Platelet) 418 133-450 [facility] CentralYjqjhmfEVFKPAHAAA8323-40-15 11:38:00 Test Item Value Reference Range Interpretation Comments MPV (test code = MPV) 9.2 7.4-10.4 [place] 1397[address]-08-22 11:38:00 Test Item Value Reference Range Interpretation Comments Segs (test code = Segs) 57.9 45.0-75.0 [place] 139731-08-22 11:38:00 Test Item Value Reference Range Interpretation Comments Lymphocytes (test code = Lymphocytes) 30.0 20.0-40.0 [place] 1397[address]-08-22 11:38:00 Test Item Value Reference Range Interpretation Comments Monocytes (test code = Monocytes) 8.2 2.0-12.0 [place] [address]-08-22 11:38:00 Test Item Value Reference Range Interpretation Comments Eosinophils (test code = 2.9 See_Comment [A utomated message] The Eosinophils) system which ge nerated this result tra nsmitted reference range : <=4.0. The reference r arelis was not used to int erpret this result as normal/abnormal . [facility] CentralHvgllyxBGTIRRGVAV1509-11-64 11:38:00 Test Item Value Reference Range Interpretation Comments Basophils (test code = 1.0 See_Comment [Aut omated message] The Basophils) system which ge nerated this result tra nsmitted reference range : <=1.0. The reference r arelis was not used to int erpret this result as normal/abnormal . [facility] CentralRqgjlmmBYBNQPDVFL4031-57-02 11:38:00 Test Item Value Reference Range Interpretation Comments Neutrophils # (test code = Neutrophils 4.0 1.5-8.1 #) [facility] CentralEwwvmkfQOYOVRGLLD8170-71-65 11:38:00 Test Item Value Reference Range Interpretation Comments Lymphocytes # (test code = Lymphocytes 2.1 1.0-5.5 #) [place] [address]-08-22 11:38:00 Test Item Value Reference Range Interpretation Comments Monocytes # (test code 0.6 See_Comment [Aut omated message] The = Monocytes #) system which generated this result tra nsmitted reference range : <=0.8. The reference r arelis was not used to int erpret this result as normal/abnormal . [place] [address]-08-22 11:38:00 Test Item Value Reference Range Interpretation Comments Eosinophils # (test code 0.2 See_Comment [A utomated message] The = Eosinophils #) system whic h generated this result tra nsmitted reference range : <=0.5. The reference r arelis was not used to int erpret this result as normal/abnormal . [facility] CentralSvtpkbtIPNWJVXNUZ4777-02-83 11:38:00 Test Item Value Reference Range Interpretation Comments Basophils # (test code 0.1 See_Comment [Aut omated message] The = Basophils #) system which generated this result tra nsmitted reference range : <=0.2. The reference r arelis was not used to int erpret this result as normal/abnormal . [facility] CentralFfmxjybRRHSUYLULY7859-28-71 11:38:00 Test Item Value Reference Range Interpretation Comments WBC (test code = WBC) 7.0 3.7-10.4 [facility] CentralDjisqafSLVUBIDFFW7409-35-11 11:38:00 Test Item Value Reference Range Interpretation Comments RBC (test code = RBC) 3.14 4.20-5.40 [facility] CentralUiwvqxgTLTYILRZCM3310-41-90 11:38:00 Test Item Value Reference Range Interpretation Comments Hgb (test code = Hgb) 9.3 12.0-16.0 [facility] CentralTrrkclaSGTQQBWPTB1382-55-68 11:38:00 Test Item Value Reference Range Interpretation Comments Hct (test code = Hct) 27.9 36.0-48.0 [facility] CentralTjaysvlCAHGXXNHFN4465-41-57 11:38:00 Test Item Value Reference Range Interpretation Comments MCV (test code = MCV) 88.7 80.0-98.0 [facility] CentralOuuokhoDNGXZXELFH0801-91-16 11:38:00 Test Item Value Reference Range Interpretation Comments MCH (test code = MCH) 29.7 pg 27.0-31.0 [facility] CentralTyjzjyyFWVYUXYREX8464-59-66 11:38:00 Test Item Value Reference Range Interpretation Comments MCHC (test code = MCHC) 33.5 32.0-36.0 [facility] CentralDgiqibvWQUVVGPQCZ7226-49-59 11:38:00 Test Item Value Reference Range Interpretation Comments RDW (test code = RDW) 15.7 11.5-14.5 [facility] CentralYmpmeeeEQTBSPMQNF9619-89-65 11:38:00 Test Item Value Reference Range Interpretation Comments Platelet (test code = Platelet) 418 133-450 [facility] CentralFykxivjLEZPAKOYPE6796-49-01 11:38:00 Test Item Value Reference Range Interpretation Comments MPV (test code = MPV) 9.2 7.4-10.4 [place] [address]-08-22 11:38:00 Test Item Value Reference Range Interpretation Comments Segs (test code = Segs) 57.9 45.0-75.0 [facility] CentralIoteudyGIMAMDDUQV8115-11-04 11:38:00 Test Item Value Reference Range Interpretation Comments Lymphocytes (test code = Lymphocytes) 30.0 20.0-40.0 [place] [address]-08-22 11:38:00 Test Item Value Reference Range Interpretation Comments Monocytes (test code = Monocytes) 8.2 2.0-12.0 [facility] CentralDcwvlelWLSQCIXTZN4981-06-60 11:38:00 Test Item Value Reference Range Interpretation Comments Eosinophils (test code = 2.9 See_Comment [A utomated message] The Eosinophils) system which ge nerated this result tra nsmitted reference range : <=4.0. The reference r arelis was not used to int erpret this result as normal/abnormal . [facility] CentralVaovdepBBBJVMCTOP5760-83-91 11:38:00 Test Item Value Reference Range Interpretation Comments Basophils (test code = 1.0 See_Comment [Aut omated message] The Basophils) system which ge nerated this result tra nsmitted reference range : <=1.0. The reference r arelis was not used to int erpret this result as normal/abnormal . [facility] CentralOsjngeqEZCAZIZCZH5934-00-18 11:38:00 Test Item Value Reference Range Interpretation Comments Neutrophils # (test code = Neutrophils 4.0 1.5-8.1 #) [facility] CentralEwtmzzcLYZHRIQSCJ6757-14-92 11:38:00 Test Item Value Reference Range Interpretation Comments Lymphocytes # (test code = Lymphocytes 2.1 1.0-5.5 #) [place] [address]-08-22 11:38:00 Test Item Value Reference Range Interpretation Comments Monocytes # (test code 0.6 See_Comment [Aut omated message] The = Monocytes #) system which generated this result tra nsmitted reference range : <=0.8. The reference r arelis was not used to int erpret this result as normal/abnormal . [place] [address]-08-22 11:38:00 Test Item Value Reference Range Interpretation Comments Eosinophils # (test code 0.2 See_Comment [A utomated message] The = Eosinophils #) system whic h generated this result tra nsmitted reference range : <=0.5. The reference r arelis was not used to int erpret this result as normal/abnormal . [facility] CentralHanvncwIYIBODKAXB2636-74-84 11:38:00 Test Item Value Reference Range Interpretation Comments Basophils # (test code 0.1 See_Comment [Aut omated message] The = Basophils #) system which generated this result tra nsmitted reference range : <=0.2. The reference r arelis was not used to int erpret this result as normal/abnormal . [facility] CentralNbwflopPPECGGQEWY5838-40-77 11:38:00 Test Item Value Reference Range Interpretation Comments WBC (test code = WBC) 7.0 3.7-10.4 [facility] CentralWncjeiaDXCERWQPDP6700-16-93 11:38:00 Test Item Value Reference Range Interpretation Comments RBC (test code = RBC) 3.14 4.20-5.40 [facility] CentralWoilyjfBGZZALBUVA1950-13-33 11:38:00 Test Item Value Reference Range Interpretation Comments Hgb (test code = Hgb) 9.3 12.0-16.0 [facility] [facility]cokcptMWKKPHPSSF4725-29-97 11:38:00 Test Item Value Reference Range Interpretation Comments Hct (test code = Hct) 27.9 36.0-48.0 [facility] CentralHwybssdZJXJXEHVUL0481-47-80 11:38:00 Test Item Value Reference Range Interpretation Comments MCV (test code = MCV) 88.7 80.0-98.0 [facility] CentralNxglfhlLYAVALFCEV0771-15-75 11:38:00 Test Item Value Reference Range Interpretation Comments MCH (test code = MCH) 29.7 pg 27.0-31.0 [facility] CentralIebzlcwZRFAZQLFRD7359-45-12 11:38:00 Test Item Value Reference Range Interpretation Comments MCHC (test code = MCHC) 33.5 32.0-36.0 [facility] CentralEpzyclqXIBEQBRTFE1047-99-15 11:38:00 Test Item Value Reference Range Interpretation Comments RDW (test code = RDW) 15.7 11.5-14.5 [facility] CentralGcgktxsTUIQAMHZZP9865-82-96 11:38:00 Test Item Value Reference Range Interpretation Comments Platelet (test code = Platelet) 418 133450 [facility] CentralHgdjijmFLPKXSJVUV3636-58-47 11:38:00 Test Item Value Reference Range Interpretation Comments MPV (test code = MPV) 9.2 7.4-10.4 [facility] CentralPsarugqURAYRVEVPZ4641-85-65 11:38:00 Test Item Value Reference Range Interpretation Comments Segs (test code = Segs) 57.9 45.0-75.0 [facility] CentralErixvjpMNQSDKVFIO6363-51-92 11:38:00 Test Item Value Reference Range Interpretation Comments Lymphocytes (test code = Lymphocytes) 30.0 20.0-40.0 [place]731-08-22 11:38:00 Test Item Value Reference Range Interpretation Comments Monocytes (test code = Monocytes) 8.2 2.0-12.0 [facility] CentralFlpugawSHXHUDBCEZ1522-00-41 11:38:00 Test Item Value Reference Range Interpretation Comments Eosinophils (test code = 2.9 See_Comment [A utomated message] The Eosinophils) system which ge nerated this result tra nsmitted reference range : <=4.0. The reference r arelis was not used to int erpret this result as normal/abnormal . [facility] CentralWbvupswNJVETIPKPJ5701-46-91 11:38:00 Test Item Value Reference Range Interpretation Comments Basophils (test code = 1.0 See_Comment [Aut omated message] The Basophils) system which ge nerated this result tra nsmitted reference range : <=1.0. The reference r arelis was not used to int erpret this result as normal/abnormal . [facility] CentralJjtiynqYHWFUIVIHN5135-47-52 11:38:00 Test Item Value Reference Range Interpretation Comments Neutrophils # (test code = Neutrophils 4.0 1.5-8.1 #) [facility] CentralCrahlswXPJLLEKRJG0229-34-81 11:38:00 Test Item Value Reference Range Interpretation Comments Lymphocytes # (test code = Lymphocytes 2.1 1.0-5.5 #) [facility] CentralBlnvbzaMJSXKZDHVB3362-20-01 11:38:00 Test Item Value Reference Range Interpretation Comments Monocytes # (test code 0.6 See_Comment [Aut omated message] The = Monocytes #) system which generated this result tra nsmitted reference range : <=0.8. The reference r arelis was not used to int erpret this result as normal/abnormal . [facility] CentralAadtsqtFNGWIWFGQG1306-85-28 11:38:00 Test Item Value Reference Range Interpretation Comments Eosinophils # (test code 0.2 See_Comment [A utomated message] The = Eosinophils #) system whic h generated this result tra nsmitted reference range : <=0.5. The reference r arelis was not used to int erpret this result as normal/abnormal . [facility] CentralBnwcpcyAYHDKHMPQD3659-05-23 11:38:00 Test Item Value Reference Range Interpretation Comments Basophils # (test code 0.1 See_Comment [Aut omated message] The = Basophils #) system which generated this result tra nsmitted reference range : <=0.2. The reference r arelis was not used to int erpret this result as normal/abnormal . [facility] CentralKbqmmhnNQPFQLTPTQ5508-97-98 11:38:00 Test Item Value Reference Range Interpretation Comments WBC (test code = WBC) 7.0 3.7-10.4 [facility] CentralYwlcwvwDFVAUCKTBU7586-76-65 11:38:00 Test Item Value Reference Range Interpretation Comments RBC (test code = RBC) 3.14 4.20-5.40 [facility] CentralUlggvuwLEOYMDKPUZ6701-42-09 11:38:00 Test Item Value Reference Range Interpretation Comments Hgb (test code = Hgb) 9.3 12.0-16.0 [facility] CentralIxrvscvTOYAKNZDQK2212-78-26 11:38:00 Test Item Value Reference Range Interpretation Comments Hct (test code = Hct) 27.9 36.0-48.0 [facility] CentralUawxsrsVQNFGQMQIX7585-40-35 11:38:00 Test Item Value Reference Range Interpretation Comments MCV (test code = MCV) 88.7 80.0-98.0 [facility] CentralAkzuallQPDLIWQCUY9683-09-38 11:38:00 Test Item Value Reference Range Interpretation Comments MCH (test code = MCH) 29.7 pg 27.0-31.0 [facility] CentralJlkicysJWUBUJEHYC7130-13-33 11:38:00 Test Item Value Reference Range Interpretation Comments MCHC (test code = MCHC) 33.5 32.0-36.0 [facility] CentralQwipzsgSBKONOVMRV5039-18-63 11:38:00 Test Item Value Reference Range Interpretation Comments RDW (test code = RDW) 15.7 11.5-14.5 [facility] CentralOrfneynWHFQSENFQB3629-46-23 11:38:00 Test Item Value Reference Range Interpretation Comments Platelet (test code = Platelet) 418 133-450 [place] 139731-08-22 11:38:00 Test Item Value Reference Range Interpretation Comments MPV (test code = MPV) 9.2 7.4-10.4 [place] 139731-08-22 11:38:00 Test Item Value Reference Range Interpretation Comments Segs (test code = Segs) 57.9 45.0-75.0 [place] 139731-08-22 11:38:00 Test Item Value Reference Range Interpretation Comments Lymphocytes (test code = Lymphocytes) 30.0 20.0-40.0 [place] [address]-08-22 11:38:00 Test Item Value Reference Range Interpretation Comments Monocytes (test code = Monocytes) 8.2 2.0-12.0 [place] 1397[address]-08-22 11:38:00 Test Item Value Reference Range Interpretation Comments Eosinophils (test code = 2.9 See_Comment [A utomated message] The Eosinophils) system which ge nerated this result tra nsmitted reference range : <=4.0. The reference r arelis was not used to int erpret this result as normal/abnormal . [facility] CentralEdtkjsuCQZRSVZFUS7880-69-49 11:38:00 Test Item Value Reference Range Interpretation Comments Basophils (test code = 1.0 See_Comment [Aut omated message] The Basophils) system which ge nerated this result tra nsmitted reference range : <=1.0. The reference r arelis was not used to int erpret this result as normal/abnormal . [facility] CentralMzlufyvYWAPLYNPWW8800-05-31 11:38:00 Test Item Value Reference Range Interpretation Comments Neutrophils # (test code = Neutrophils 4.0 1.5-8.1 #) [facility] CentralHuqbwxhGYMZFUZMQU0189-70-32 11:38:00 Test Item Value Reference Range Interpretation Comments Lymphocytes # (test code = Lymphocytes 2.1 1.0-5.5 #) [facility] CentralOrieycqGTRRRVBUYI5037-00-40 11:38:00 Test Item Value Reference Range Interpretation Comments Monocytes # (test code 0.6 See_Comment [Aut omated message] The = Monocytes #) system which generated this result tra nsmitted reference range : <=0.8. The reference r arelis was not used to int erpret this result as normal/abnormal . [facility] CentralDtanzpbMKSLWLWMVF2390-97-61 11:38:00 Test Item Value Reference Range Interpretation Comments Eosinophils # (test code 0.2 See_Comment [A utomated message] The = Eosinophils #) system whic h generated this result tra nsmitted reference range : <=0.5. The reference r arelis was not used to int erpret this result as normal/abnormal . [facility] CentralGmdlwccAGZVEORABK0079-66-72 11:38:00 Test Item Value Reference Range Interpretation Comments Basophils # (test code 0.1 See_Comment [Aut omated message] The = Basophils #) system which generated this result tra nsmitted reference range : <=0.2. The reference r arelis was not used to int erpret this result as normal/abnormal . [place] 1397[address]-08-22 11:38:00 Test Item Value Reference Range Interpretation Comments WBC (test code = WBC) 7.0 3.7-10.4 [facility] CentralPamfutnTRGDJLUEAA8362-02-35 11:38:00 Test Item Value Reference Range Interpretation Comments RBC (test code = RBC) 3.14 4.20-5.40 [place] [address]-08-22 11:38:00 Test Item Value Reference Range Interpretation Comments Hgb (test code = Hgb) 9.3 12.0-16.0 [place] [address]-08-22 11:38:00 Test Item Value Reference Range Interpretation Comments Hct (test code = Hct) 27.9 36.0-48.0 [place] [address]-08-22 11:38:00 Test Item Value Reference Range Interpretation Comments MCV (test code = MCV) 88.7 80.0-98.0 [place] [address]-08-22 11:38:00 Test Item Value Reference Range Interpretation Comments MCH (test code = MCH) 29.7 pg 27.0-31.0 [facility] CentralGfyinjpAKXXSZSZJA3557-61-86 11:38:00 Test Item Value Reference Range Interpretation Comments MCHC (test code = MCHC) 33.5 32.0-36.0 [place] 1397[address]-08-22 11:38:00 Test Item Value Reference Range Interpretation Comments RDW (test code = RDW) 15.7 11.5-14.5 [place] [address]-08-22 11:38:00 Test Item Value Reference Range Interpretation Comments Platelet (test code = Platelet) 418 133-450 [place] [address]-08-22 11:38:00 Test Item Value Reference Range Interpretation Comments MPV (test code = MPV) 9.2 7.4-10.4 [place] [address]-08-22 11:38:00 Test Item Value Reference Range Interpretation Comments Segs (test code = Segs) 57.9 45.0-75.0 [place] [address]-08-22 11:38:00 Test Item Value Reference Range Interpretation Comments Lymphocytes (test code = Lymphocytes) 30.0 20.0-40.0 [place] [address]-08-22 11:38:00 Test Item Value Reference Range Interpretation Comments Monocytes (test code = Monocytes) 8.2 2.0-12.0 [place] [address]-08-22 11:38:00 Test Item Value Reference Range Interpretation Comments Eosinophils (test code = 2.9 See_Comment [A utomated message] The Eosinophils) system which ge nerated this result tra nsmitted reference range : <=4.0. The reference r arelis was not used to int erpret this result as normal/abnormal . [facility] CentralPwqzhauENBIUWPYSE2698-49-79 11:38:00 Test Item Value Reference Range Interpretation Comments Basophils (test code = 1.0 See_Comment [Aut omated message] The Basophils) system which ge nerated this result tra nsmitted reference range : <=1.0. The reference r arelis was not used to int erpret this result as normal/abnormal . [facility] CentralYgsfxxoXJBLKGTZEV2226-84-13 11:38:00 Test Item Value Reference Range Interpretation Comments Neutrophils # (test code = Neutrophils 4.0 1.5-8.1 #) [place] [address]-08-22 11:38:00 Test Item Value Reference Range Interpretation Comments Lymphocytes # (test code = Lymphocytes 2.1 1.0-5.5 #) [facility] CentralSdytfrdVSDQMVQCQK0368-23-54 11:38:00 Test Item Value Reference Range Interpretation Comments Monocytes # (test code 0.6 See_Comment [Aut omated message] The = Monocytes #) system which generated this result tra nsmitted reference range : <=0.8. The reference r arelis was not used to int erpret this result as normal/abnormal . [facility] CentralYjggnfvOSLOBVDBKM7529-18-50 11:38:00 Test Item Value Reference Range Interpretation Comments Eosinophils # (test code 0.2 See_Comment [A utomated message] The = Eosinophils #) system whic h generated this result tra nsmitted reference range : <=0.5. The reference r arelis was not used to int erpret this result as normal/abnormal . [facility] CentralXpoqoijHUHMZLOGBS6546-99-09 11:38:00 Test Item Value Reference Range Interpretation Comments Basophils # (test code 0.1 See_Comment [Aut omated message] The = Basophils #) system which generated this result tra nsmitted reference range : <=0.2. The reference r arelis was not used to int erpret this result as normal/abnormal . [facility] CentralJditjlmGXTFEWESGM7510-02-38 11:38:00 Test Item Value Reference Range Interpretation Comments WBC (test code = WBC) 7.0 3.7-10.4 [place] [address]-08-22 11:38:00 Test Item Value Reference Range Interpretation Comments RBC (test code = RBC) 3.14 4.20-5.40 [facility] CentralVgjxztfGAKODFOFUX4487-71-13 11:38:00 Test Item Value Reference Range Interpretation Comments Hgb (test code = Hgb) 9.3 12.0-16.0 [place] [address]-08-22 11:38:00 Test Item Value Reference Range Interpretation Comments Hct (test code = Hct) 27.9 36.0-48.0 [place] [address]-08-22 11:38:00 Test Item Value Reference Range Interpretation Comments MCV (test code = MCV) 88.7 80.0-98.0 [place] [address]-08-22 11:38:00 Test Item Value Reference Range Interpretation Comments MCH (test code = MCH) 29.7 pg 27.0-31.0 [place] [address]-08-22 11:38:00 Test Item Value Reference Range Interpretation Comments MCHC (test code = MCHC) 33.5 32.0-36.0 [place] [address]-08-22 11:38:00 Test Item Value Reference Range Interpretation Comments RDW (test code = RDW) 15.7 11.5-14.5 [place] [address]-08-22 11:38:00 Test Item Value Reference Range Interpretation Comments Platelet (test code = Platelet) 418 133-450 [place] [address]-08-22 11:38:00 Test Item Value Reference Range Interpretation Comments MPV (test code = MPV) 9.2 7.4-10.4 [place] [address]-08-22 11:38:00 Test Item Value Reference Range Interpretation Comments Segs (test code = Segs) 57.9 45.0-75.0 [place] [address]-08-22 11:38:00 Test Item Value Reference Range Interpretation Comments Lymphocytes (test code = Lymphocytes) 30.0 20.0-40.0 [place] [address]-08-22 11:38:00 Test Item Value Reference Range Interpretation Comments Monocytes (test code = Monocytes) 8.2 2.0-12.0 [place] [address]-08-22 11:38:00 Test Item Value Reference Range Interpretation Comments Eosinophils (test code = 2.9 See_Comment [A utomated message] The Eosinophils) system which ge nerated this result tra nsmitted reference range : <=4.0. The reference r arelsi was not used to int erpret this result as normal/abnormal . [facility] CentralRuydfyiZUZAJFPDAF6862-44-06 11:38:00 Test Item Value Reference Range Interpretation Comments Basophils (test code = 1.0 See_Comment [Aut omated message] The Basophils) system which ge nerated this result tra nsmitted reference range : <=1.0. The reference r arelis was not used to int erpret this result as normal/abnormal . [place] [address]-08-22 11:38:00 Test Item Value Reference Range Interpretation Comments Neutrophils # (test code = Neutrophils 4.0 1.5-8.1 #) [facility] CentralMapitojSHDHPUAPDW1244-88-00 11:38:00 Test Item Value Reference Range Interpretation Comments Lymphocytes # (test code = Lymphocytes 2.1 1.0-5.5 #) [place] [address]-08-22 11:38:00 Test Item Value Reference Range Interpretation Comments Monocytes # (test code 0.6 See_Comment [Aut omated message] The = Monocytes #) system which generated this result tra nsmitted reference range : <=0.8. The reference r arelis was not used to int erpret this result as normal/abnormal . [facility] CentralCpjxaaiPRRGVNHWOH7727-48-78 11:38:00 Test Item Value Reference Range Interpretation Comments Eosinophils # (test code 0.2 See_Comment [A utomated message] The = Eosinophils #) system whic h generated this result tra nsmitted reference range : <=0.5. The reference r arelis was not used to int erpret this result as normal/abnormal . [facility] CentralYwlwcxkJDIJZNPLRJ5846-78-88 11:38:00 Test Item Value Reference Range Interpretation Comments Basophils # (test code 0.1 See_Comment [Aut omated message] The = Basophils #) system which generated this result tra nsmitted reference range : <=0.2. The reference r arelis was not used to int erpret this result as normal/abnormal . [facility] CentralVqvtralCOKKBDETMS9137-23-46 11:38:00 Test Item Value Reference Range Interpretation Comments WBC (test code = WBC) 7.0 3.7-10.4 [place] [address]-08-22 11:38:00 Test Item Value Reference Range Interpretation Comments RBC (test code = RBC) 3.14 4.20-5.40 [facility] CentralVmfpojwEAGTUEZPPH0282-74-29 11:38:00 Test Item Value Reference Range Interpretation Comments Hgb (test code = Hgb) 9.3 12.0-16.0 [place] [address]-08-22 11:38:00 Test Item Value Reference Range Interpretation Comments Hct (test code = Hct) 27.9 36.0-48.0 [place] [address]-08-22 11:38:00 Test Item Value Reference Range Interpretation Comments MCV (test code = MCV) 88.7 80.0-98.0 [place] [address]-08-22 11:38:00 Test Item Value Reference Range Interpretation Comments MCH (test code = MCH) 29.7 pg 27.0-31.0 [place] [address]-08-22 11:38:00 Test Item Value Reference Range Interpretation Comments MCHC (test code = MCHC) 33.5 32.0-36.0 [place] [address]-08-22 11:38:00 Test Item Value Reference Range Interpretation Comments RDW (test code = RDW) 15.7 11.5-14.5 [place] [address]-08-22 11:38:00 Test Item Value Reference Range Interpretation Comments Platelet (test code = Platelet) 418 133-450 [place] [address]-08-22 11:38:00 Test Item Value Reference Range Interpretation Comments MPV (test code = MPV) 9.2 7.4-10.4 [place] [address]-08-22 11:38:00 Test Item Value Reference Range Interpretation Comments Segs (test code = Segs) 57.9 45.0-75.0 [place] [address]-08-22 11:38:00 Test Item Value Reference Range Interpretation Comments Lymphocytes (test code = Lymphocytes) 30.0 20.0-40.0 [place] [address]-08-22 11:38:00 Test Item Value Reference Range Interpretation Comments Monocytes (test code = Monocytes) 8.2 2.0-12.0 [place] [address]-08-22 11:38:00 Test Item Value Reference Range Interpretation Comments Eosinophils (test code = 2.9 See_Comment [A utomated message] The Eosinophils) system which ge nerated this result tra nsmitted reference range : <=4.0. The reference r arelis was not used to int erpret this result as normal/abnormal . [facility] CentralBbjfqmlFKMEKNUXSZ7308-30-11 11:38:00 Test Item Value Reference Range Interpretation Comments Basophils (test code = 1.0 See_Comment [Aut omated message] The Basophils) system which ge nerated this result tra nsmitted reference range : <=1.0. The reference r arelis was not used to int erpret this result as normal/abnormal . [facility] CentralYfcndhpDMZSXERFFU3754-15-27 11:38:00 Test Item Value Reference Range Interpretation Comments Neutrophils # (test code = Neutrophils 4.0 1.5-8.1 #) [facility] CentralZowrasuQINDMRHPOE2726-47-15 11:38:00 Test Item Value Reference Range Interpretation Comments Lymphocytes # (test code = Lymphocytes 2.1 1.0-5.5 #) [place] [address]-08-22 11:38:00 Test Item Value Reference Range Interpretation Comments Monocytes # (test code 0.6 See_Comment [Aut omated message] The = Monocytes #) system which generated this result tra nsmitted reference range : <=0.8. The reference r arelis was not used to int erpret this result as normal/abnormal . [facility] CentralLgslqifBOCRRSUHDG8210-92-71 11:38:00 Test Item Value Reference Range Interpretation Comments Eosinophils # (test code 0.2 See_Comment [A utomated message] The = Eosinophils #) system whic h generated this result tra nsmitted reference range : <=0.5. The reference r arelis was not used to int erpret this result as normal/abnormal . [facility] CentralSawyhpkJKITAPSRRA5974-89-58 11:38:00 Test Item Value Reference Range Interpretation Comments Basophils # (test code 0.1 See_Comment [Aut omated message] The = Basophils #) system which generated this result tra nsmitted reference range : <=0.2. The reference r arelis was not used to int erpret this result as normal/abnormal . [facility] CentralQckgpshRSNCMMYZNJ9231-86-48 11:38:00 Test Item Value Reference Range Interpretation Comments WBC (test code = WBC) 7.0 3.7-10.4 [facility] CentralFesxbtiCQMTIQPEOA8199-61-54 11:38:00 Test Item Value Reference Range Interpretation Comments RBC (test code = RBC) 3.14 4.20-5.40 [facility] CentralPmtjtkaCOYDSEJAPX6399-32-14 11:38:00 Test Item Value Reference Range Interpretation Comments Hgb (test code = Hgb) 9.3 12.0-16.0 [facility] CentralOlxwypuXDTYDUCPEO5458-92-72 11:38:00 Test Item Value Reference Range Interpretation Comments Hct (test code = Hct) 27.9 36.0-48.0 [place] [address]-08-22 11:38:00 Test Item Value Reference Range Interpretation Comments MCV (test code = MCV) 88.7 80.0-98.0 [place] [address]-08-22 11:38:00 Test Item Value Reference Range Interpretation Comments MCH (test code = MCH) 29.7 pg 27.0-31.0 [place] [address]-08-22 11:38:00 Test Item Value Reference Range Interpretation Comments MCHC (test code = MCHC) 33.5 32.0-36.0 [place] [address]-08-22 11:38:00 Test Item Value Reference Range Interpretation Comments RDW (test code = RDW) 15.7 11.5-14.5 [place] [address]-08-22 11:38:00 Test Item Value Reference Range Interpretation Comments Platelet (test code = Platelet) 418 133-450 [facility] CentralQaihujaWMYUTBPUUN8265-26-30 11:38:00 Test Item Value Reference Range Interpretation Comments MPV (test code = MPV) 9.2 7.4-10.4 [place] [address]-08-22 11:38:00 Test Item Value Reference Range Interpretation Comments Segs (test code = Segs) 57.9 45.0-75.0 [place] [address]-08-22 11:38:00 Test Item Value Reference Range Interpretation Comments Lymphocytes (test code = Lymphocytes) 30.0 20.0-40.0 [place] [address]-08-22 11:38:00 Test Item Value Reference Range Interpretation Comments Monocytes (test code = Monocytes) 8.2 2.0-12.0 [facility] CentralLloinbwTPTEASCZUN4893-14-60 11:38:00 Test Item Value Reference Range Interpretation Comments Eosinophils (test code = 2.9 See_Comment [A utomated message] The Eosinophils) system which ge nerated this result tra nsmitted reference range : <=4.0. The reference r arelis was not used to int erpret this result as normal/abnormal . [facility] CentralVilzlmyIKUEKPDEAR3529-66-16 11:38:00 Test Item Value Reference Range Interpretation Comments Basophils (test code = 1.0 See_Comment [Aut omated message] The Basophils) system which ge nerated this result tra nsmitted reference range : <=1.0. The reference r arelis was not used to int erpret this result as normal/abnormal . [facility] CentralCjfyewuMNQQLVKNYB6587-13-53 11:38:00 Test Item Value Reference Range Interpretation Comments Neutrophils # (test code = Neutrophils 4.0 1.5-8.1 #) [place] [address]-08-22 11:38:00 Test Item Value Reference Range Interpretation Comments Lymphocytes # (test code = Lymphocytes 2.1 1.0-5.5 #) [facility] CentralOcpgdoeDXLPEZKCLG6428-26-75 11:38:00 Test Item Value Reference Range Interpretation Comments Monocytes # (test code 0.6 See_Comment [Aut omated message] The = Monocytes #) system which generated this result tra nsmitted reference range : <=0.8. The reference r arelis was not used to int erpret this result as normal/abnormal . [facility] CentralPngxaekYNVDHDSOUP1060-61-29 11:38:00 Test Item Value Reference Range Interpretation Comments Eosinophils # (test code 0.2 See_Comment [A utomated message] The = Eosinophils #) system whic h generated this result tra nsmitted reference range : <=0.5. The reference r arelis was not used to int erpret this result as normal/abnormal . [facility] CentralFqlltgzRPNRHNFQYI2910-78-98 11:38:00 Test Item Value Reference Range Interpretation Comments Basophils # (test code 0.1 See_Comment [Aut omated message] The = Basophils #) system which generated this result tra nsmitted reference range : <=0.2. The reference r arelis was not used to int erpret this result as normal/abnormal . [facility] CentralYewwvqmDRYMANQVVT5583-31-99 11:38:00 Test Item Value Reference Range Interpretation Comments WBC (test code = WBC) 7.0 3.7-10.4 [facility] CentralPfocfqhVYFTCRRLOW3411-72-57 11:38:00 Test Item Value Reference Range Interpretation Comments RBC (test code = RBC) 3.14 4.20-5.40 [facility] CentralPxxhhhgPRHCMTLYJH6309-35-50 11:38:00 Test Item Value Reference Range Interpretation Comments Hgb (test code = Hgb) 9.3 12.0-16.0 [place] [place]31-[place] 11:38:00 Test Item Value Reference Range Interpretation Comments Hct (test code = Hct) 27.9 36.0-48.0 [place] 139731-08-22 11:38:00 Test Item Value Reference Range Interpretation Comments MCV (test code = MCV) 88.7 80.0-98.0 [place] 139731-08-22 11:38:00 Test Item Value Reference Range Interpretation Comments MCH (test code = MCH) 29.7 pg 27.0-31.0 [facility]BvwbykxKUJKDCZISB6252-25-73 11:38:00 Test Item Value Reference Range Interpretation Comments MCHC (test code = MCHC) 33.5 32.0-36.0 [facility] CentralTtrsfvqYLUUNUVUME8910-62-75 11:38:00 Test Item Value Reference Range Interpretation Comments RDW (test code = RDW) 15.7 11.5-14.5 [facility] CentralIcluqhpDBZFJNGIAN7900-79-94 11:38:00 Test Item Value Reference Range Interpretation Comments WBC (test code = WBC) 7.0 3.7-10.4 [facility] CentralYaftrpqMIQORUTHVW0269-86-63 11:38:00 Test Item Value Reference Range Interpretation Comments RBC (test code = RBC) 3.14 4.20-5.40 [facility] CentralPkbwestZARQDCRFXO7351-04-00 11:38:00 Test Item Value Reference Range Interpretation Comments Platelet (test code = Platelet) 418 133-171 [facility] CentralWaztbnxXMKDNPXCSB3386-74-35 11:38:00 Test Item Value Reference Range Interpretation Comments Hgb (test code = Hgb) 9.3 12.0-16.0 [facility] CentralKzxkllxLYLSQEJUSP0549-84-84 11:38:00 Test Item Value Reference Range Interpretation Comments Hct (test code = Hct) 27.9 36.0-48.0 [facility] CentralKxjyhtaQBNDMVOIIE3158-73-13 11:38:00 Test Item Value Reference Range Interpretation Comments MCV (test code = MCV) 88.7 80.0-98.0 [facility] CentralHpjvxvsXPQXUSQQKR6892-24-95 11:38:00 Test Item Value Reference Range Interpretation Comments MCH (test code = MCH) 29.7 pg 27.0-31.0 [facility] CentralOkehpskKISPUVGDGK9678-67-76 11:38:00 Test Item Value Reference Range Interpretation Comments MCHC (test code = MCHC) 33.5 32.0-36.0 [facility] CentralCfupxffHRKEQJUGLW1771-20-83 11:38:00 Test Item Value Reference Range Interpretation Comments RDW (test code = RDW) 15.7 11.5-14.5 [place] 139731-08-22 11:38:00 Test Item Value Reference Range Interpretation Comments Platelet (test code = Platelet) 418 133450 [facility] CentralDkfldxhULAZYADSLI1782-17-71 11:38:00 Test Item Value Reference Range Interpretation Comments MPV (test code = MPV) 9.2 7.4-10.4 [place] 139731-08-22 11:38:00 Test Item Value Reference Range Interpretation Comments Segs (test code = Segs) 57.9 45.0-75.0 [place] 139731-08-22 11:38:00 Test Item Value Reference Range Interpretation Comments Lymphocytes (test code = Lymphocytes) 30.0 20.0-40.0 [place] 139731-08-22 11:38:00 Test Item Value Reference Range Interpretation Comments MPV (test code = MPV) 9.2 7.4-10.4 [place] 139731-08-22 11:38:00 Test Item Value Reference Range Interpretation Comments Monocytes (test code = Monocytes) 8.2 2.0-12.0 [place] 139731-08-22 11:38:00 Test Item Value Reference Range Interpretation Comments Eosinophils (test code = 2.9 See_Comment [A utomated message] The Eosinophils) system which ge nerated this result tra nsmitted reference range : <=4.0. The reference r arelis was not used to int erpret this result as normal/abnormal . [facility] CentralTmpseerMJFBMCQCDU1373-74-50 11:38:00 Test Item Value Reference Range Interpretation Comments Basophils (test code = 1.0 See_Comment [Aut omated message] The Basophils) system which ge nerated this result tra nsmitted reference range : <=1.0. The reference r arelis was not used to int erpret this result as normal/abnormal . [facility] CentralLzzuhzaVLMFFDASAJ2176-09-77 11:38:00 Test Item Value Reference Range Interpretation Comments Neutrophils # (test code = Neutrophils 4.0 1.5-8.1 #) [place] 139731-08-22 11:38:00 Test Item Value Reference Range Interpretation Comments Lymphocytes # (test code = Lymphocytes 2.1 1.0-5.5 #) [facility] CentralWdhpmfaHRHSZCFLCG7893-94-75 11:38:00 Test Item Value Reference Range Interpretation Comments Monocytes # (test code 0.6 See_Comment [Aut omated message] The = Monocytes #) system which generated this result tra nsmitted reference range : <=0.8. The reference r arelis was not used to int erpret this result as normal/abnormal . [facility] CentralArbvwqkYKDHNOORKQ7972-96-75 11:38:00 Test Item Value Reference Range Interpretation Comments Eosinophils # (test code 0.2 See_Comment [A utomated message] The = Eosinophils #) system [facility] generated this result tra nsmitted reference range : <=0.5. The reference r arelis was not used to int erpret this result as normal/abnormal . [facility] CentralQhvtwjuINGOCSRGNE1536-38-30 11:38:00 Test Item Value Reference Range Interpretation Comments Basophils # (test code 0.1 See_Comment [Aut omated message] The = Basophils #) system which generated this result tra nsmitted reference range : <=0.2. The reference r arelis was not used to int erpret this result as normal/abnormal . [facility] CentralEnhjzvxZLHBENYNAN2918-55-47 11:38:00 Test Item Value Reference Range Interpretation Comments Segs (test code = Segs) 57.9 45.0-75.0 [place] 1397[address]-08-22 11:38:00 Test Item Value Reference Range Interpretation Comments Lymphocytes (test code = Lymphocytes) 30.0 20.0-40.0 [place] 139731-08-22 11:38:00 Test Item Value Reference Range Interpretation Comments Monocytes (test code = Monocytes) 8.2 2.0-12.0 [facility] CentralDmznvsxILNTWPHIMS3135-75-79 11:38:00 Test Item Value Reference Range Interpretation Comments Eosinophils (test code = 2.9 See_Comment [A utomated message] The Eosinophils) system which ge nerated this result tra nsmitted reference range : <=4.0. The reference r arelis was not used to int erpret this result as normal/abnormal . [facility] CentralTrzyslhWMSPZJTMMQ7526-64-58 11:38:00 Test Item Value Reference Range Interpretation Comments Basophils (test code = 1.0 See_Comment [Aut omated message] The Basophils) system which ge nerated this result tra nsmitted reference range : <=1.0. The reference r arelis was not used to int erpret this result as normal/abnormal . [facility] CentralMuuwrhaONYAOMHIVW4975-37-12 11:38:00 Test Item Value Reference Range Interpretation Comments Neutrophils # (test code = Neutrophils 4.0 1.5-8.1 #) [facility] CentralHdpqjfwQQXFJDFTCH2216-16-83 11:38:00 Test Item Value Reference Range Interpretation Comments Lymphocytes # (test code = Lymphocytes 2.1 1.0-5.5 #) [facility] CentralRxlcqaeEWZOKKGJJH0868-37-80 11:38:00 Test Item Value Reference Range Interpretation Comments Monocytes # (test code 0.6 See_Comment [Aut omated message] The = Monocytes #) system which generated this result tra nsmitted reference range : <=0.8. The reference r arelis was not used to int erpret this result as normal/abnormal . [facility] CentralWdonhesXWCMAIHGJJ0192-93-07 11:38:00 Test Item Value Reference Range Interpretation Comments Eosinophils # (test code 0.2 See_Comment [A utomated message] The = Eosinophils #) system whic h generated this result tra nsmitted reference range : <=0.5. The reference r arelis was not used to int erpret this result as normal/abnormal . [facility] CentralTkztbhjYQZYMOTIIJ9490-14-97 11:38:00 Test Item Value Reference Range Interpretation Comments Basophils # (test code 0.1 See_Comment [Aut omated message] The = Basophils #) system which generated this result tra nsmitted reference range : <=0.2. The reference r arelis was not used to int erpret this result as normal/abnormal . [facility] CentralKkxjaitDSUVUIIXXX0469-41-74 11:38:00 Test Item Value Reference Range Interpretation Comments WBC (test code = WBC) 7.0 3.7-10.4 [facility] CentralQwtjfhxHXBIUPJWHD3968-41-75 11:38:00 Test Item Value Reference Range Interpretation Comments RBC (test code = RBC) 3.14 4.20-5.40 [place] [address]31-08-22 11:38:00 Test Item Value Reference Range Interpretation Comments Hgb (test code = Hgb) 9.3 12.0-16.0 [place] 139731-08-22 11:38:00 Test Item Value Reference Range Interpretation Comments Hct (test code = Hct) 27.9 36.0-48.0 [place] 139[place]31-08-22 11:38:00 Test Item Value Reference Range Interpretation Comments MCV (test code = MCV) 88.7 80.0-98.0 [place] 139731-08-22 11:38:00 Test Item Value Reference Range Interpretation Comments MCH (test code = MCH) 29.7 pg 27.0-31.0 [facility] CentralPfngtmpXUCYQUKDOR5750-26-51 11:38:00 Test Item Value Reference Range Interpretation Comments MCHC (test code = MCHC) 33.5 32.0-36.0 [facility] CentralQwwekfwJIQFEFUIAZ2201-08-80 11:38:00 Test Item Value Reference Range Interpretation Comments RDW (test code = RDW) 15.7 11.5-14.5 [place] [address]-08-22 11:38:00 Test Item Value Reference Range Interpretation Comments Platelet (test code = Platelet) 418 133-450 [facility] CentralNhnjoatUOCLEDFERL2824-81-20 11:38:00 Test Item Value Reference Range Interpretation Comments MPV (test code = MPV) 9.2 7.4-10.4 [facility] CentralXxkyzerYRWIKEXOAN4725-39-61 11:38:00 Test Item Value Reference Range Interpretation Comments Segs (test code = Segs) 57.9 45.0-75.0 [facility] CentralIexnqavOIKCOLAHYT5236-41-74 11:38:00 Test Item Value Reference Range Interpretation Comments Lymphocytes (test code = Lymphocytes) 30.0 20.0-40.0 [facility] CentralQcykjhqSPEZRLFLRS8300-91-32 11:38:00 Test Item Value Reference Range Interpretation Comments Monocytes (test code = Monocytes) 8.2 2.0-12.0 [facility] CentralKcmnaziVFNUWTLMYX2585-11-50 11:38:00 Test Item Value Reference Range Interpretation Comments Eosinophils (test code = 2.9 See_Comment [A utomated message] The Eosinophils) system which ge nerated this result tra nsmitted reference range : <=4.0. The reference r arelis was not used to int erpret this result as normal/abnormal . [facility] CentralPyivwnaDRLACLAYYO3389-98-23 11:38:00 Test Item Value Reference Range Interpretation Comments Basophils (test code = 1.0 See_Comment [Aut omated message] The Basophils) system which ge nerated this result tra nsmitted reference range : <=1.0. The reference r arelis was not used to int erpret this result as normal/abnormal . [place]-08-22 11:38:00 Test Item Value Reference Range Interpretation Comments Neutrophils # (test code = Neutrophils 4.0 1.5-8.1 #) [facility] CentralBydvagkURFPGUDLGK8653-70-39 11:38:00 Test Item Value Reference Range Interpretation Comments Lymphocytes # (test code = Lymphocytes 2.1 1.0-5.5 #) [place] [address]-08-22 11:38:00 Test Item Value Reference Range Interpretation Comments Monocytes # (test code 0.6 See_Comment [Aut omated message] The = Monocytes #) system which generated this result tra nsmitted reference range : <=0.8. The reference r arelis was not used to int erpret this result as normal/abnormal . [place]-08-22 11:38:00 Test Item Value Reference Range Interpretation Comments Eosinophils # (test code 0.2 See_Comment [A utomated message] The = Eosinophils #) system whic h generated this result tra nsmitted reference range : <=0.5. The reference r arelis was not used to int erpret this result as normal/abnormal . [facility] CentralWjloolzOLHHPRJQSB0878-16-85 11:38:00 Test Item Value Reference Range Interpretation Comments Basophils # (test code 0.1 See_Comment [Aut omated message] The = Basophils #) system which generated this result tra nsmitted reference range : <=0.2. The reference r arelis was not used to int erpret this result as normal/abnormal . [facility] CentralPlhghisDWHQLRFCLB1095-02-61 11:38:00 Test Item Value Reference Range Interpretation Comments WBC (test code = WBC) 7.0 3.7-10.4 [place] [address]-08-22 11:38:00 Test Item Value Reference Range Interpretation Comments RBC (test code = RBC) 3.14 4.20-5.40 [place]-08-22 11:38:00 Test Item Value Reference Range Interpretation Comments Hgb (test code = Hgb) 9.3 12.0-16.0 [place] [address]731-08-22 11:38:00 Test Item Value Reference Range Interpretation Comments Hct (test code = Hct) 27.9 36.0-48.0 [place]31-08-22 11:38:00 Test Item Value Reference Range Interpretation Comments MCV (test code = MCV) 88.7 80.0-98.0 [facility] CentralRioqntoRPKOMLBAOJ6787-12-85 11:38:00 Test Item Value Reference Range Interpretation Comments MCH (test code = MCH) 29.7 pg 27.0-31.0 [facility] CentralXrfzyrgNEWMOHUTJB6763-45-41 11:38:00 Test Item Value Reference Range Interpretation Comments MCHC (test code = MCHC) 33.5 32.0-36.0 [facility] CentralWdcaufxHHVAWZCRIQ2381-22-97 11:38:00 Test Item Value Reference Range Interpretation Comments RDW (test code = RDW) 15.7 11.5-14.5 [facility] CentralSpofuroGOJPFSWTTX2223-52-26 11:38:00 Test Item Value Reference Range Interpretation Comments Platelet (test code = Platelet) 418 133-450 [facility] CentralTrfjcoaMMCMGEICZB5216-61-45 11:38:00 Test Item Value Reference Range Interpretation Comments MPV (test code = MPV) 9.2 7.4-10.4 [facility] CentralOalxilfZZEZWDICSJ9089-70-95 11:38:00 Test Item Value Reference Range Interpretation Comments Segs (test code = Segs) 57.9 45.0-75.0 [facility] CentralUqgvactBIMJGTAAHA3085-84-71 11:38:00 Test Item Value Reference Range Interpretation Comments Lymphocytes (test code = Lymphocytes) 30.0 20.0-40.0 [facility] CentralXorzbxeTTGVRBKVES4126-29-17 11:38:00 Test Item Value Reference Range Interpretation Comments Monocytes (test code = Monocytes) 8.2 2.0-12.0 [facility] CentralNevjwmjLSOFXMUQYG4321-01-97 11:38:00 Test Item Value Reference Range Interpretation Comments Eosinophils (test code = 2.9 See_Comment [A utomated message] The Eosinophils) system which ge nerated this result tra nsmitted reference range : <=4.0. The reference r arelis was not used to int erpret this result as normal/abnormal . [facility] CentralQfxkljdUOUYLEEZFR9195-63-06 11:38:00 Test Item Value Reference Range Interpretation Comments Basophils (test code = 1.0 See_Comment [Aut omated message] The Basophils) system which ge nerated this result tra nsmitted reference range : <=1.0. The reference r arelis was not used to int erpret this result as normal/abnormal . [facility] CentralNkqrwonJETZHICPYQ5322-20-14 11:38:00 Test Item Value Reference Range Interpretation Comments Neutrophils # (test code = Neutrophils 4.0 1.5-8.1 #) [facility] CentralCejnyndZSXIGGOBKW5086-57-00 11:38:00 Test Item Value Reference Range Interpretation Comments Lymphocytes # (test code = Lymphocytes 2.1 1.0-5.5 #) [facility] CentralWvnixqpNMJPSHJBCW9084-22-96 11:38:00 Test Item Value Reference Range Interpretation Comments Monocytes # (test code 0.6 See_Comment [Aut omated message] The = Monocytes #) system which generated this result tra nsmitted reference range : <=0.8. The reference r arelis was not used to int erpret this result as normal/abnormal . [facility] CentralCleiimdPHRBMJTWYJ7191-03-14 11:38:00 Test Item Value Reference Range Interpretation Comments Eosinophils # (test code 0.2 See_Comment [A utomated message] The = Eosinophils #) system whic h generated this result tra nsmitted reference range : <=0.5. The reference r arelis was not used to int erpret this result as normal/abnormal . [facility] CentralDebcnxhZRCMPWTELH6057-97-39 11:38:00 Test Item Value Reference Range Interpretation Comments Basophils # (test code 0.1 See_Comment [Aut omated message] The = Basophils #) system which generated this result tra nsmitted reference range : <=0.2. The reference r arelis was not used to int erpret this result as normal/abnormal . [facility] CentralNxeitziRKTSGKMQGO5335-25-87 11:38:00 Test Item Value Reference Range Interpretation Comments WBC (test code = WBC) 7.0 3.7-10.4 [place]-08-22 11:38:00 Test Item Value Reference Range Interpretation Comments RBC (test code = RBC) 3.14 4.20-5.40 [place]31-08-22 11:38:00 Test Item Value Reference Range Interpretation Comments Hgb (test code = Hgb) 9.3 12.0-16.0 [place]731-08-22 11:38:00 Test Item Value Reference Range Interpretation Comments Hct (test code = Hct) 27.9 36.0-48.0 [place]731-08-22 11:38:00 Test Item Value Reference Range Interpretation Comments MCV (test code = MCV) 88.7 80.0-98.0 [place] 139731-08-22 11:38:00 Test Item Value Reference Range Interpretation Comments MCH (test code = MCH) 29.7 pg 27.0-31.0 [place] 139731-08-22 11:38:00 Test Item Value Reference Range Interpretation Comments MCHC (test code = MCHC) 33.5 32.0-36.0 [place] 139731-08-22 11:38:00 Test Item Value Reference Range Interpretation Comments RDW (test code = RDW) 15.7 11.5-14.5 [place] 139731-08-22 11:38:00 Test Item Value Reference Range Interpretation Comments Platelet (test code = Platelet) 418 133-450 [facility] CentralHjqqvkfFYKKDQYIIC8840-65-72 11:38:00 Test Item Value Reference Range Interpretation Comments MPV (test code = MPV) 9.2 7.4-10.4 [place] 1397[address]-08-22 11:38:00 Test Item Value Reference Range Interpretation Comments Segs (test code = Segs) 57.9 45.0-75.0 [facility] CentralWqnoizkHILRLHOGEO3017-05-77 11:38:00 Test Item Value Reference Range Interpretation Comments Lymphocytes (test code = Lymphocytes) 30.0 20.0-40.0 [facility] CentralBxxzodlNGPRZLQAJN9156-59-33 11:38:00 Test Item Value Reference Range Interpretation Comments Monocytes (test code = Monocytes) 8.2 2.0-12.0 [place] [address]-08-22 11:38:00 Test Item Value Reference Range Interpretation Comments Eosinophils (test code = 2.9 See_Comment [A utomated message] The Eosinophils) system which ge nerated this result tra nsmitted reference range : <=4.0. The reference r arelis was not used to int erpret this result as normal/abnormal . [place]-08-22 11:38:00 Test Item Value Reference Range Interpretation Comments Basophils (test code = 1.0 See_Comment [Aut omated message] The Basophils) system which ge nerated this result tra nsmitted reference range : <=1.0. The reference r arelis was not used to int erpret this result as normal/abnormal . [facility] CentralReagzxoKMDSKITUQQ8865-74-84 11:38:00 Test Item Value Reference Range Interpretation Comments Neutrophils # (test code = Neutrophils 4.0 1.5-8.1 #) [facility] CentralCyitanxMSQNGXBRZD5090-40-69 11:38:00 Test Item Value Reference Range Interpretation Comments Lymphocytes # (test code = Lymphocytes 2.1 1.0-5.5 #) [facility] CentralBrczmptZYXVXPIPAG2114-65-57 11:38:00 Test Item Value Reference Range Interpretation Comments Monocytes # (test code 0.6 See_Comment [Aut omated message] The = Monocytes #) system which generated this result tra nsmitted reference range : <=0.8. The reference r arelis was not used to int erpret this result as normal/abnormal . [facility] CentralPxvpnymNVHCWPWJHA8273-35-67 11:38:00 Test Item Value Reference Range Interpretation Comments Eosinophils # (test code 0.2 See_Comment [A utomated message] The = Eosinophils #) system whic h generated this result tra nsmitted reference range : <=0.5. The reference r arelis was not used to int erpret this result as normal/abnormal . [facility] CentralZlfmhdsJXWUKZNRWE2798-40-58 11:38:00 Test Item Value Reference Range Interpretation Comments Basophils # (test code 0.1 See_Comment [Aut omated message] The = Basophils #) system which generated this result tra nsmitted reference range : <=0.2. The reference r arelis was not used to int erpret this result as normal/abnormal . [facility] CentralAyrmkxtLXWQGZUMOU6476-98-13 11:38[facility].0[facility]:38:003.14[facility]riSt[facility] HospitalFqgxpbjZAYZGQYXLQ3499-15-00 11:38:009.3[facility]VmdhievYBPTGNPDBZ5433-07-52 11:38:00 Test Item Value Reference Range Interpretation Comments WBC (test code = WBC) 7.0 3.7-10.4 [facility] CentralOgxdcoiSWCTPJYNGL9494-55-07 11:38:00 Test Item Value Reference Range Interpretation Comments RBC (test code = RBC) 3.14 4.20-5.40 [facility] CentralAnbzatxKRPMOIPIMA0572-07-27 11:38:00 Test Item Value Reference Range Interpretation Comments Hgb (test code = Hgb) 9.3 12.0-16.0 [facility] CentralUgoxyrvOVYLXYQDIE6813-33-61 11:38:00 Test Item Value Reference Range Interpretation Comments Hct (test code = Hct) 27.9 36.0-48.0 [facility] CentralJbsjshuFQNEHNVSWL4585-38-32 11:38:00 Test Item Value Reference Range Interpretation Comments MCV (test code = MCV) 88.7 80.0-98.0 [facility] CentralOwnanjuGKSYYNCWVC0280-99-90 11:38:00 Test Item Value Reference Range Interpretation Comments MCH (test code = MCH) 29.7 pg 27.0-31.0 [facility] CentralEozkkfzPIGUCEWWIP5030-60-04 11:38:00 Test Item Value Reference Range Interpretation Comments MCHC (test code = MCHC) 33.5 32.0-36.0 [facility] CentralFttpmfqCSDZCLEOFB4454-69-51 11:38:00 Test Item Value Reference Range Interpretation Comments RDW (test code = RDW) 15.7 11.5-14.5 [facility] CentralBrypqhwONOHWDXWVQ9641-59-60 11:38:00 Test Item Value Reference Range Interpretation Comments Platelet (test code = Platelet) 418 133-450 [facility] CentralBamtboqLIPLGCGSKA6087-14-99 11:38:00 Test Item Value Reference Range Interpretation Comments MPV (test code = MPV) 9.2 7.4-10.4 [facility] CentralHbmwwlaJPWDKXHBGS1134-19-05 11:38:00 Test Item Value Reference Range Interpretation Comments Segs (test code = Segs) 57.9 45.0-75.0 [facility] CentralTmolraqDPGXPOACQP6715-60-64 11:38:00 Test Item Value Reference Range Interpretation Comments Lymphocytes (test code = Lymphocytes) 30.0 20.0-40.0 [place] 139[place]31-08-22 11:38:00 Test Item Value Reference Range Interpretation Comments Monocytes (test code = Monocytes) 8.2 2.0-12.0 [facility] CentralZxpflmuMUMNLYABQM8232-76-78 11:38:00 Test Item Value Reference Range Interpretation Comments Eosinophils (test code = 2.9 See_Comment [A utomated message] The Eosinophils) system which ge nerated this result tra nsmitted reference range : <=4.0. The reference r arelis was not used to int erpret this result as normal/abnormal . [facility] CentralEgizwnaVBGUMILMKG2295-30-07 11:38:00 Test Item Value Reference Range Interpretation Comments Basophils (test code = 1.0 See_Comment [Aut omated message] The Basophils) system which ge nerated this result tra nsmitted reference range : <=1.0. The reference r arelis was not used to int erpret this result as normal/abnormal . [facility] CentralZjhadeoWUSQBOJQGW6057-42-74 11:38:00 Test Item Value Reference Range Interpretation Comments Neutrophils # (test code = Neutrophils 4.0 1.5-8.1 #) [facility] CentralClbevdlWBFVUSROVS2670-13-76 11:38:00 Test Item Value Reference Range Interpretation Comments Lymphocytes # (test code = Lymphocytes 2.1 1.0-5.5 #) [facility] CentralZdibmyuLGVZOUVUZA0325-95-86 11:38:00 Test Item Value Reference Range Interpretation Comments Monocytes # (test code 0.6 See_Comment [Aut omated message] The = Monocytes #) system which generated this result tra nsmitted reference range : <=0.8. The reference r arelis was not used to int erpret this result as normal/abnormal . [facility] CentralPuefcfqDLEPCDBYMT5582-89-58 11:38:00 Test Item Value Reference Range Interpretation Comments Eosinophils # (test code 0.2 See_Comment [A utomated message] The = Eosinophils #) system whic h generated this result tra nsmitted reference range : <=0.5. The reference r arelis was not used to int erpret this result as normal/abnormal . [facility] CentralAhhdphoODEFSZHYCH4268-59-75 11:38:00 Test Item Value Reference Range Interpretation Comments Basophils # (test code 0.1 See_Comment [Aut omated message] The = Basophils #) system which generated this result tra nsmitted reference range : <=0.2. The reference r arelis was not used to int erpret this result as normal/abnormal . [facility] CentralNtwldjdHNBTZEJFCY0279-85-13 11:38:0027.9[facility] 2021-02-12 11:38:0088.7[facility] XkjdsfnFFDZGULFIA5253-88-26 11:38:00 Test Item Value Reference Range Interpretation Comments MCH (test code = MCH) 29.7 pg 27.0-31.0 [facility]OgteiuwXMKABFKVRN2202-98-91 11:38:0033.5[facility] 2021-02-12 11:38:00 Test Item Value Reference Range Interpretation Comments WBC (test code = WBC) 7.0 3.7-10.4 [facility]borNjcnfuhZIUNKUTFHI9601-96-54 11:38:00 Test Item Value Reference Range Interpretation Comments RBC (test code = RBC) 3.14 4.20-5.40 [facility]borSxxhgpeIJOIPKDRAC4450-98-68 11:38:00 Test Item Value Reference Range Interpretation Comments Hgb (test code = Hgb) 9.3 12.0-16.0 [facility] CentralUdtqvojSTDSWLGNAI1143-40-12 11:38:00 Test Item Value Reference Range Interpretation Comments Hct (test code = Hct) 27.9 36.0-48.0 [facility]borYhjfkpcUJGEDDQHMQ2865-78-47 11:38:00 Test Item Value Reference Range Interpretation Comments MCV (test code = MCV) 88.7 80.0-98.0 [facility]borMahkgrrTPDMMPEDBL1410-24-25 11:38:00 Test Item Value Reference Range Interpretation Comments MCH (test code = MCH) 29.7 pg 27.0-31.0 [facility]borQjcbycrBRSZWDRBNK7865-89-19 11:38:00 Test Item Value Reference Range Interpretation Comments MCHC (test code = MCHC) 33.5 32.0-36.0 [facility]borIdzmwfnBZIYRGCJWB8258-28-91 11:38:00 Test Item Value Reference Range Interpretation Comments RDW (test code = RDW) 15.7 11.5-14.5 [facility]borSuujchtDPHGFNVLHA5591-47-55 11:38:00 Test Item Value Reference Range Interpretation Comments Platelet (test code = Platelet) 418 133-450 [facility]borRcemyreXLYEMUUGKB4377-03-63 11:38:00 Test Item Value Reference Range Interpretation Comments MPV (test code = MPV) 9.2 7.4-10.4 [facility] CentralNopfwfaJUIUSOLMNS2532-15-50 11:38:00 Test Item Value Reference Range Interpretation Comments Segs (test code = Segs) 57.9 45.0-75.0 [facility]borQszoxgtYUULSMBJOP6843-74-53 11:38:00 Test Item Value Reference Range Interpretation Comments Lymphocytes (test code = Lymphocytes) 30.0 20.0-40.0 [place] 139731-08-22 11:38:00 Test Item Value Reference Range Interpretation Comments Monocytes (test code = Monocytes) 8.2 2.0-12.0 [place] 139731-08-22 11:38:00 Test Item Value Reference Range Interpretation Comments Eosinophils (test code = 2.9 See_Comment [A utomated message] The Eosinophils) system which ge nerated this result tra nsmitted reference range : <=4.0. The reference r arelis was not used to int erpret this result as normal/abnormal . [facility] CentralGnsyvbaBTHBYXFJAQ8892-22-76 11:38:00 Test Item Value Reference Range Interpretation Comments Basophils (test code = 1.0 See_Comment [Aut omated message] The Basophils) system which ge nerated this result tra nsmitted reference range : <=1.0. The reference r arelis was not used to int erpret this result as normal/abnormal . [facility] CentralRpnypxbQCNBJJGUZQ7108-29-91 11:38:00 Test Item Value Reference Range Interpretation Comments Neutrophils # (test code = Neutrophils 4.0 1.5-8.1 #) [facility] CentralMgbeybxRYVLKFPUEQ1451-21-10 11:38:00 Test Item Value Reference Range Interpretation Comments Lymphocytes # (test code = Lymphocytes 2.1 1.0-5.5 #) [facility] CentralXlruxjmDAVOPYWYRD4783-50-19 11:38:00 Test Item Value Reference Range Interpretation Comments Monocytes # (test code 0.6 See_Comment [Aut omated message] The = Monocytes #) system which generated this result tra nsmitted reference range : <=0.8. The reference r arelis was not used to int erpret this result as normal/abnormal . [facility] CentralMzqgrxbKNKHHFZICE5851-88-40 11:38:00 Test Item Value Reference Range Interpretation Comments Eosinophils # (test code 0.2 See_Comment [A utomated message] The = Eosinophils #) system whic h generated this result tra nsmitted reference range : <=0.5. The reference r arelis was not used to int erpret this result as normal/abnormal . [facility] CentralOpweexwGMXXTAUKTR0301-23-91 11:38:00 Test Item Value Reference Range Interpretation Comments Basophils # (test code 0.1 See_Comment [Aut omated message] The = Basophils #) system which generated this result tra nsmitted reference range : <=0.2. The reference r arelis was not used to int erpret this result as normal/abnormal . [facility] CentralEnmkumwNLHYNNMEQU3096-87-96 11:38[facility].7[facility] 11:38:98480Vzokpooz HkqbaopOAYAOUTPIK0284-77-54 11:38:009.2[facility] BcqubitKRSZIZUJQY7979-23-26 11:38:0057.9[facility] AtmqpojOQTTEFZAPU2029-45-06 11:38:00 Test Item Value Reference Range Interpretation Comments WBC (test code = WBC) 7.0 3.7-10.4 [facility]borRngjjoaLNICEOKADS8532-44-83 11:38:00 Test Item Value Reference Range Interpretation Comments RBC (test code = RBC) 3.14 4.20-5.40 [facility]borCogtetoIYQQIIXBOS7460-00-64 11:38:00 Test Item Value Reference Range Interpretation Comments Hgb (test code = Hgb) 9.3 12.0-16.0 [facility]borKcbwpfkJQNDMNYEQD2691-33-19 11:38:00 Test Item Value Reference Range Interpretation Comments Hct (test code = Hct) 27.9 36.0-48.0 [facility] CampusBkzwytvEIOHCFKRQY9377-70-18 11:38:00 Test Item Value Reference Range Interpretation Comments MCV (test code = MCV) 88.7 80.0-98.0 [facility]borAqxgechVLAWAGOZAN8362-45-48 11:38:00 Test Item Value Reference Range Interpretation Comments MCH (test code = MCH) 29.7 pg 27.0-31.0 [facility] CampusXmibxedZLKAWPAGKN4620-67-58 11:38:00 Test Item Value Reference Range Interpretation Comments MCHC (test code = MCHC) 33.5 32.0-36.0 [facility] CampusItfqyruYNDGRJJPRV3128-79-91 11:38:00 Test Item Value Reference Range Interpretation Comments RDW (test code = RDW) 15.7 11.5-14.5 [facility] CampusEtxmhfdPWJFIHNNFU0844-37-45 11:38:00 Test Item Value Reference Range Interpretation Comments Platelet (test code = Platelet) 418 133-450 [place] 139731-08-22 11:38:00 Test Item Value Reference Range Interpretation Comments MPV (test code = MPV) 9.2 7.4-10.4 [place] 139731-08-22 11:38:00 Test Item Value Reference Range Interpretation Comments Segs (test code = Segs) 57.9 45.0-75.0 [place] 139731-08-22 11:38:00 Test Item Value Reference Range Interpretation Comments Lymphocytes (test code = Lymphocytes) 30.0 20.0-40.0 [place] 1397[address]-08-22 11:38:00 Test Item Value Reference Range Interpretation Comments Monocytes (test code = Monocytes) 8.2 2.0-12.0 [place] [address]-08-22 11:38:00 Test Item Value Reference Range Interpretation Comments Eosinophils (test code = 2.9 See_Comment [A utomated message] The Eosinophils) system which ge nerated this result tra nsmitted reference range : <=4.0. The reference r arelis was not used to int erpret this result as normal/abnormal . [facility] CentralYrsevyjWJLMUHQGJL7251-28-49 11:38:00 Test Item Value Reference Range Interpretation Comments Basophils (test code = 1.0 See_Comment [Aut omated message] The Basophils) system which ge nerated this result tra nsmitted reference range : <=1.0. The reference r arelis was not used to int erpret this result as normal/abnormal . [place] 1397[address]-08-22 11:38:00 Test Item Value Reference Range Interpretation Comments Neutrophils # (test code = Neutrophils 4.0 1.5-8.1 #) [place] 1397[address]-08-22 11:38:00 Test Item Value Reference Range Interpretation Comments Lymphocytes # (test code = Lymphocytes 2.1 1.0-5.5 #) [place] [address]-08-22 11:38:00 Test Item Value Reference Range Interpretation Comments Monocytes # (test code 0.6 See_Comment [Aut omated message] The = Monocytes #) system which generated this result tra nsmitted reference range : <=0.8. The reference r arelis was not used to int erpret this result as normal/abnormal . [place] 1397[address]-08-22 11:38:00 Test Item Value Reference Range Interpretation Comments Eosinophils # (test code 0.2 See_Comment [A utomated message] The = Eosinophils #) system whic h generated this result tra nsmitted reference range : <=0.5. The reference r arelis was not used to int erpret this result as normal/abnormal . [facility] CampusTotszlwOAXFQCMTDD1679-99-36 11:38:00 Test Item Value Reference Range Interpretation Comments Basophils # (test code 0.1 See_Comment [Aut omated message] The = Basophils #) system which generated this result tra nsmitted reference range : <=0.2. The reference r arelis was not used to int erpret this result as normal/abnormal . [facility]EnfbqffYDBADLCASF3979-95-07 11:38:0030.0[facility] 11:38:008.2[facility] LhhefynVDIZPNUUHR5440-08-19 11:38:002.9[facility] TbrdqdnZMPTBBHITB1755-95-91 11:38:001.0[facility] YzksmoaUAYPOLNKEI7599-16-48 11:38:00 Test Item Value Reference Range Interpretation Comments WBC (test code = WBC) 7.0 3.7-10.4 [facility] CampusVigxcwrBJJTAPJWUQ5217-15-19 11:38:00 Test Item Value Reference Range Interpretation Comments RBC (test code = RBC) 3.14 4.20-5.40 [facility] CampusHorsvvxCHIYWZCODK5877-15-07 11:38:00 Test Item Value Reference Range Interpretation Comments Hgb (test code = Hgb) 9.3 12.0-16.0 [facility] CampusBhhrsucRTMGGXUDEX5346-98-07 11:38:00 Test Item Value Reference Range Interpretation Comments Hct (test code = Hct) 27.9 36.0-48.0 [facility] HospitalGnlgqyaUSKUNUEAYK5951-74-13 11:38:00 Test Item Value Reference Range Interpretation Comments MCV (test code = MCV) 88.7 80.0-98.0 [facility] CampusPhbixjtCYYPPECUPR8510-60-50 11:38:00 Test Item Value Reference Range Interpretation Comments MCH (test code = MCH) 29.7 pg 27.0-31.0 [facility] CampusYunjcuuYLNCHQTFXG8956-22-29 11:38:00 Test Item Value Reference Range Interpretation Comments MCHC (test code = MCHC) 33.5 32.0-36.0 [place] 1397[address]-08-22 11:38:00 Test Item Value Reference Range Interpretation Comments RDW (test code = RDW) 15.7 11.5-14.5 [place] 1397[address]-08-22 11:38:00 Test Item Value Reference Range Interpretation Comments Platelet (test code = Platelet) 418 133-450 [facility] CentralGxbdhucRUVVJADAXT4818-75-03 11:38:00 Test Item Value Reference Range Interpretation Comments MPV (test code = MPV) 9.2 7.4-10.4 [place] [address]-08-22 11:38:00 Test Item Value Reference Range Interpretation Comments Segs (test code = Segs) 57.9 45.0-75.0 [place] [address]-08-22 11:38:00 Test Item Value Reference Range Interpretation Comments Lymphocytes (test code = Lymphocytes) 30.0 20.0-40.0 [place] [address]-08-22 11:38:00 Test Item Value Reference Range Interpretation Comments Monocytes (test code = Monocytes) 8.2 2.0-12.0 [facility] CentralZoflrteSBXIICDGCH7257-57-54 11:38:00 Test Item Value Reference Range Interpretation Comments Eosinophils (test code = 2.9 See_Comment [A utomated message] The Eosinophils) system which ge nerated this result tra nsmitted reference range : <=4.0. The reference r arelis was not used to int erpret this result as normal/abnormal . [facility] CentralFqhjbkqFZVHTDALKU7655-52-17 11:38:00 Test Item Value Reference Range Interpretation Comments Basophils (test code = 1.0 See_Comment [Aut omated message] The Basophils) system which ge nerated this result tra nsmitted reference range : <=1.0. The reference r arelis was not used to int erpret this result as normal/abnormal . [place] [address]-08-22 11:38:00 Test Item Value Reference Range Interpretation Comments Neutrophils # (test code = Neutrophils 4.0 1.5-8.1 #) [facility] CentralUsvlxssNSGNCJZHRT6327-17-34 11:38:00 Test Item Value Reference Range Interpretation Comments Lymphocytes # (test code = Lymphocytes 2.1 1.0-5.5 #) [facility]borJsifdkkMAEXVGMCOE5383-74-11 11:38:00 Test Item Value Reference Range Interpretation Comments Monocytes # (test code 0.6 See_Comment [Aut omated message] The = Monocytes #) system which generated this result tra nsmitted reference range : <=0.8. The reference r arelis was not used to int erpret this result as normal/abnormal . [facility]borVfnklqaUYPUEKVJOM0054-15-46 11:38:00 Test Item Value Reference Range Interpretation Comments Eosinophils # (test code 0.2 See_Comment [A utomated message] The = Eosinophils #) system whic h generated this result tra nsmitted reference range : <=0.5. The reference r arelis was not used to int erpret this result as normal/abnormal . [facility] ArborBumcmiiPYHTAPMMNG2053-24-90 11:38:00 Test Item Value Reference Range Interpretation Comments Basophils # (test code 0.1 See_Comment [Aut omated message] The = Basophils #) system which generated this result tra nsmitted reference range : <=0.2. The reference r arelis was not used to int erpret this result as normal/abnormal . [facility] CampusObraskjJAHSEFMTMR7374-48-87 11:38:004.0[facility]HE[facility] 2021-[facility]-12 11:38:002.1[facility] IcpifhlUEGTKNJNTQ5505-97-83 11:38:000.6[facility] UhkhkskLKKKQPLGXR6455-86-86 11:38:000.2[facility] IikdsnbKDQJKAFAGB6451-30-10 11:38:00 Test Item Value Reference Range Interpretation Comments WBC (test code = WBC) 7.0 3.7-10.4 [facility] CampusFpgssdqJGPCVBQVNR4479-43-17 11:38:00 Test Item Value Reference Range Interpretation Comments RBC (test code = RBC) 3.14 4.20-5.40 [facility] CampusIzentumVEYXMWIQXW5153-93-20 11:38:00 Test Item Value Reference Range Interpretation Comments Hgb (test code = Hgb) 9.3 12.0-16.0 [facility] CampusKrzsjgxCDJDPHARLN9403-39-77 11:38:00 Test Item Value Reference Range Interpretation Comments Hct (test code = Hct) 27.9 36.0-48.0 [facility] ZqalagtRUVVSPEBBL7538-64-78 11:38:00 Test Item Value Reference Range Interpretation Comments MCV (test code = MCV) 88.7 80.0-98.0 [place] 139731-08-22 11:38:00 Test Item Value Reference Range Interpretation Comments MCH (test code = MCH) 29.7 pg 27.0-31.0 [place] 139731-08-22 11:38:00 Test Item Value Reference Range Interpretation Comments MCHC (test code = MCHC) 33.5 32.0-36.0 [place] 1397[address]-08-22 11:38:00 Test Item Value Reference Range Interpretation Comments RDW (test code = RDW) 15.7 11.5-14.5 [place] 1397[address]-08-22 11:38:00 Test Item Value Reference Range Interpretation Comments Platelet (test code = Platelet) 418 133-450 [place] 139731-08-22 11:38:00 Test Item Value Reference Range Interpretation Comments MPV (test code = MPV) 9.2 7.4-10.4 [place] [address]-08-22 11:38:00 Test Item Value Reference Range Interpretation Comments Segs (test code = Segs) 57.9 45.0-75.0 [place] 1397[address]-08-22 11:38:00 Test Item Value Reference Range Interpretation Comments Lymphocytes (test code = Lymphocytes) 30.0 20.0-40.0 [place] 1397[address]-08-22 11:38:00 Test Item Value Reference Range Interpretation Comments Monocytes (test code = Monocytes) 8.2 2.0-12.0 [place] 1397[address]-08-22 11:38:00 Test Item Value Reference Range Interpretation Comments Eosinophils (test code = 2.9 See_Comment [A utomated message] The Eosinophils) system which ge nerated this result tra nsmitted reference range : <=4.0. The reference r arelis was not used to int erpret this result as normal/abnormal . [place] 1397[address]-08-22 11:38:00 Test Item Value Reference Range Interpretation Comments Basophils (test code = 1.0 See_Comment [Aut omated message] The Basophils) system which ge nerated this result tra nsmitted reference range : <=1.0. The reference r arelis was not used to int erpret this result as normal/abnormal . [facility] CentralQkeuoxqCUXSSOJVMY4495-72-52 11:38:00 Test Item Value Reference Range Interpretation Comments Neutrophils # (test code = Neutrophils 4.0 1.5-8.1 #) [facility] CentralFgxhhiuYHPUBDCUHA7980-28-42 11:38:00 Test Item Value Reference Range Interpretation Comments Lymphocytes # (test code = Lymphocytes 2.1 1.0-5.5 #) [facility] CentralXvfqycdPTBAGOQFLL8152-86-49 11:38:00 Test Item Value Reference Range Interpretation Comments Monocytes # (test code 0.6 See_Comment [Aut omated message] The = Monocytes #) system which generated this result tra nsmitted reference range : <=0.8. The reference r arelis was not used to int erpret this result as normal/abnormal . [facility] CentralCbaindlYYJZNWDWXU1825-34-06 11:38:00 Test Item Value Reference Range Interpretation Comments Eosinophils # (test code 0.2 See_Comment [A utomated message] The = Eosinophils #) system whic h generated this result tra nsmitted reference range : <=0.5. The reference r arelis was not used to int erpret this result as normal/abnormal . [facility] CentralXtupsodXCKMJSIDNA4221-23-22 11:38:00 Test Item Value Reference Range Interpretation Comments Basophils # (test code 0.1 See_Comment [Aut omated message] The = Basophils #) system which generated this result tra nsmitted reference range : <=0.2. The reference r arelis was not used to int erpret this result as normal/abnormal . [facility] CentralQouzzgmUKAJUCZUNP1453-19-97 11:38[facility] 11:38:00 Test Item Value Reference Range Interpretation Comments WBC (test code = WBC) 7.0 3.7-10.4 [facility] CentralWssepfgBWNFDEQGDD9020-37-12 11:38:00 Test Item Value Reference Range Interpretation Comments RBC (test code = RBC) 3.14 4.20-5.40 [facility] CentralHtangjdLJQIHCFIKU8352-46-62 11:38:00 Test Item Value Reference Range Interpretation Comments Hgb (test code = Hgb) 9.3 12.0-16.0 [place] [address]-08-22 11:38:00 Test Item Value Reference Range Interpretation Comments Hct (test code = Hct) 27.9 36.0-48.0 [facility] CentralZonqfwmSEHIXUUXTJ6163-55-30 11:38:00 Test Item Value Reference Range Interpretation Comments MCV (test code = MCV) 88.7 80.0-98.0 [facility] CentralDbrlbjqYDTAOLRIFW8725-08-36 11:38:00 Test Item Value Reference Range Interpretation Comments MCH (test code = MCH) 29.7 pg 27.0-31.0 [facility] CentralHksnjoxGBSDVHNKYB6678-05-18 11:38:00 Test Item Value Reference Range Interpretation Comments MCHC (test code = MCHC) 33.5 32.0-36.0 [facility] CentralWwvqbvrVALLPQEFNI5925-91-73 11:38:00 Test Item Value Reference Range Interpretation Comments RDW (test code = RDW) 15.7 11.5-14.5 [facility] CentralKeewtvqUZQVDUNJKN2695-27-38 11:38:00 Test Item Value Reference Range Interpretation Comments Platelet (test code = Platelet) 418 133-450 [facility] CentralEdceuzzSFJMBOSJOI6460-51-68 11:38:00 Test Item Value Reference Range Interpretation Comments MPV (test code = MPV) 9.2 7.4-10.4 [facility] CentralLnubbyrPEGJYHIQOV2817-59-59 11:38:00 Test Item Value Reference Range Interpretation Comments Segs (test code = Segs) 57.9 45.0-75.0 [facility] CentralEneladbPOJYQPWBAW7128-69-89 11:38:00 Test Item Value Reference Range Interpretation Comments Lymphocytes (test code = Lymphocytes) 30.0 20.0-40.0 [facility] CentralEmfklmdZWURFAGAFJ2653-46-53 11:38:00 Test Item Value Reference Range Interpretation Comments Monocytes (test code = Monocytes) 8.2 2.0-12.0 [place] [address]-08-22 11:38:00 Test Item Value Reference Range Interpretation Comments Eosinophils (test code = 2.9 See_Comment [A utomated message] The Eosinophils) system which ge nerated this result tra nsmitted reference range : <=4.0. The reference r arelis was not used to int erpret this result as normal/abnormal . [facility] CentralIixpfopJGPIBNARVV3730-60-07 11:38:00 Test Item Value Reference Range Interpretation Comments Basophils (test code = 1.0 See_Comment [Aut omated message] The Basophils) system which ge nerated this result tra nsmitted reference range : <=1.0. The reference r arelis was not used to int erpret this result as normal/abnormal . [facility] CentralDnlpflkPIACLVDUWQ4537-40-12 11:38:00 Test Item Value Reference Range Interpretation Comments Neutrophils # (test code = Neutrophils 4.0 1.5-8.1 #) [facility] CentralDhoieegWWNBDJOEXE7009-54-03 11:38:00 Test Item Value Reference Range Interpretation Comments Lymphocytes # (test code = Lymphocytes 2.1 1.0-5.5 #) [facility] CentralKrsqshqGPLMZQAYDC4240-32-83 11:38:00 Test Item Value Reference Range Interpretation Comments Monocytes # (test code 0.6 See_Comment [Aut omated message] The = Monocytes #) system which generated this result tra nsmitted reference range : <=0.8. The reference r arelis was not used to int erpret this result as normal/abnormal . [facility] CentralUnggipwBVRZKZZRYJ0810-58-66 11:38:00 Test Item Value Reference Range Interpretation Comments Eosinophils # (test code 0.2 See_Comment [A utomated message] The = Eosinophils #) system whic h generated this result tra nsmitted reference range : <=0.5. The reference r arelis was not used to int erpret this result as normal/abnormal . [facility] CentralSlysgxxQHQTFONJVS0742-00-16 11:38:00 Test Item Value Reference Range Interpretation Comments Basophils # (test code 0.1 See_Comment [Aut omated message] The = Basophils #) system which generated this result tra nsmitted reference range : <=0.2. The reference r arelis was not used to int erpret this result as normal/abnormal . [facility] CentralEsrlktdDJXQVBDMCN0355-86-84 11:38:00 Test Item Value Reference Range Interpretation Comments WBC (test code = WBC) 7.0 3.7-10.4 [place] [address]-08-22 11:38:00 Test Item Value Reference Range Interpretation Comments RBC (test code = RBC) 3.14 4.20-5.40 [place] 1397[address]-08-22 11:38:00 Test Item Value Reference Range Interpretation Comments Hgb (test code = Hgb) 9.3 12.0-16.0 [facility] CentralYzednjoIHTQSAJFHO7633-69-85 11:38:00 Test Item Value Reference Range Interpretation Comments Hct (test code = Hct) 27.9 36.0-48.0 [place] [address]-08-22 11:38:00 Test Item Value Reference Range Interpretation Comments MCV (test code = MCV) 88.7 80.0-98.0 [place] [address]-08-22 11:38:00 Test Item Value Reference Range Interpretation Comments MCH (test code = MCH) 29.7 pg 27.0-31.0 [place] 1397[address]-08-22 11:38:00 Test Item Value Reference Range Interpretation Comments MCHC (test code = MCHC) 33.5 32.0-36.0 [facility] CentralZfryzuhPYKLPSHURC4373-21-18 11:38:00 Test Item Value Reference Range Interpretation Comments RDW (test code = RDW) 15.7 11.5-14.5 [place] [address]-08-22 11:38:00 Test Item Value Reference Range Interpretation Comments Platelet (test code = Platelet) 418 133-450 [facility] CentralOsdxtikJNSJSVBSKU7911-96-99 11:38:00 Test Item Value Reference Range Interpretation Comments MPV (test code = MPV) 9.2 7.4-10.4 [place] 1397[address]-08-22 11:38:00 Test Item Value Reference Range Interpretation Comments Segs (test code = Segs) 57.9 45.0-75.0 [place] [address]-08-22 11:38:00 Test Item Value Reference Range Interpretation Comments Lymphocytes (test code = Lymphocytes) 30.0 20.0-40.0 [place] [address]-08-22 11:38:00 Test Item Value Reference Range Interpretation Comments Monocytes (test code = Monocytes) 8.2 2.0-12.0 [place] [address]-08-22 11:38:00 Test Item Value Reference Range Interpretation Comments Eosinophils (test code = 2.9 See_Comment [A utomated message] The Eosinophils) system which ge nerated this result tra nsmitted reference range : <=4.0. The reference r arelis was not used to int erpret this result as normal/abnormal . [facility] CentralEifmlwoVSUEVNNYCK6392-78-90 11:38:00 Test Item Value Reference Range Interpretation Comments Basophils (test code = 1.0 See_Comment [Aut omated message] The Basophils) system which ge nerated this result tra nsmitted reference range : <=1.0. The reference r arelis was not used to int erpret this result as normal/abnormal . [facility] CentralTystccuDARQMAZSOF3972-83-67 11:38:00 Test Item Value Reference Range Interpretation Comments Neutrophils # (test code = Neutrophils 4.0 1.5-8.1 #) [facility] CentralRgypkcoTRCGRHPEYD9243-21-60 11:38:00 Test Item Value Reference Range Interpretation Comments Lymphocytes # (test code = Lymphocytes 2.1 1.0-5.5 #) [facility] CentralHsefffiLNKPGHUBHB2889-54-71 11:38:00 Test Item Value Reference Range Interpretation Comments Monocytes # (test code 0.6 See_Comment [Aut omated message] The = Monocytes #) system which generated this result tra nsmitted reference range : <=0.8. The reference r arelis was not used to int erpret this result as normal/abnormal . [facility] CentralFxnnewdBQCHYHRQXR6538-39-52 11:38:00 Test Item Value Reference Range Interpretation Comments Eosinophils # (test code 0.2 See_Comment [A utomated message] The = Eosinophils #) system whic h generated this result tra nsmitted reference range : <=0.5. The reference r arelis was not used to int erpret this result as normal/abnormal . [facility] CentralQizjfloBBTXOAAIOS1715-74-65 11:38:00 Test Item Value Reference Range Interpretation Comments Basophils # (test code 0.1 See_Comment [Aut omated message] The = Basophils #) system which generated this result tra nsmitted reference range : <=0.2. The reference r arelis was not used to int erpret this result as normal/abnormal . [facility]2021-08-21 12:25:00 Test Item Value Reference Range Interpretation Comments Iron (test code = Iron) 30 [facility]2021-08-21 12:25:00 Test Item Value Reference Range Interpretation Comments TIBC (test code = TIBC) 252 [facility]2021-08-21 12:25:00 Test Item Value Reference Range Interpretation Comments % Satur Fe (test code = % Satur Fe) 12 [place] 853501-08-21 12:25:00 Test Item Value Reference Range Interpretation Comments Glucose Lvl (test code = Glucose Lvl) 99 70-99 [place] 853501-08-21 12:25:00 Test Item Value Reference Range Interpretation Comments BUN (test code = BUN) 7 7-22 [place] 853501-08-21 12:25:00 Test Item Value Reference Range Interpretation Comments Creatinine Lvl (test code = Creatinine 0.60 0.50-1.40 Lvl) [place] 853501-08-21 12:25:00 Test Item Value Reference Range Interpretation Comments Sodium Lvl (test code = Sodium Lvl) 148 135-145 [place] 853501-08-21 12:25:00 Test Item Value Reference Range Interpretation Comments Potassium Lvl (test code = Potassium 3.6 3.5-5.1 Lvl) [place] 853501-08-21 12:25:00 Test Item Value Reference Range Interpretation Comments Chloride Lvl (test code = Chloride Lvl) 116 95-109 [place] 853501-08-21 12:25:00 Test Item Value Reference Range Interpretation Comments CO2 (test code = CO2) 24 24-32 [place] 853501-08-21 12:25:00 Test Item Value Reference Range Interpretation Comments Calcium Lvl (test code = Calcium Lvl) 8.5 8.5-10.5 [place] 853501-08-21 12:25:00 Test Item Value Reference Range Interpretation Comments AGAP (test code = AGAP) 11.6 10.0-20.0 [place] [address]3501-08-21 12:25:00 Test Item Value Reference Range Interpretation Comments eGFR (test code = eGFR) 94 [place] 139731-08-21 12:25:00 Test Item Value Reference Range Interpretation Comments Segs (test code = Segs) 60.4 45.0-75.0 [place] 139731-08-21 12:25:00 Test Item Value Reference Range Interpretation Comments Lymphocytes (test code = Lymphocytes) 28.7 20.0-40.0 [place] 139731-08-21 12:25:00 Test Item Value Reference Range Interpretation Comments Monocytes (test code = Monocytes) 7.2 2.0-12.0 [place] 139731-08-21 12:25:00 Test Item Value Reference Range Interpretation Comments Eosinophils (test code = 2.8 See_Comment [A utomated message] The Eosinophils) system which ge nerated this result tra nsmitted reference range : <=4.0. The reference r arelis was not used to int erpret this result as normal/abnormal . [place] 139731-08-21 12:25:00 Test Item Value Reference Range Interpretation Comments Basophils (test code = 0.9 See_Comment [Aut omated message] The Basophils) system which ge nerated this result tra nsmitted reference range : <=1.0. The reference r arelis was not used to int erpret this result as normal/abnormal . [place] 139731-08-21 12:25:00 Test Item Value Reference Range Interpretation Comments Neutrophils # (test code = Neutrophils 4.0 1.5-8.1 #) [place] 1397[address]-08-21 12:25:00 Test Item Value Reference Range Interpretation Comments Lymphocytes # (test code = Lymphocytes 1.9 1.0-5.5 #) [place] [address]-08-21 12:25:00 Test Item Value Reference Range Interpretation Comments Monocytes # (test code 0.5 See_Comment [Aut omated message] The = Monocytes #) system which generated this result tra nsmitted reference range : <=0.8. The reference r arelis was not used to int erpret this result as normal/abnormal . [place] 139731-08-21 12:25:00 Test Item Value Reference Range Interpretation Comments Eosinophils # (test code 0.2 See_Comment [A utomated message] The = Eosinophils #) system whic h generated this result tra nsmitted reference range : <=0.5. The reference r arelis was not used to int erpret this result as normal/abnormal . [place] 1397[address]-08-21 12:25:00 Test Item Value Reference Range Interpretation Comments Basophils # (test code 0.1 See_Comment [Aut omated message] The = Basophils #) system which generated this result tra nsmitted reference range : <=0.2. The reference r arelis was not used to int erpret this result as normal/abnormal . [facility] CentralJqzfezxVSLDUEYAHA5084-35-12 12:25:00 Test Item Value Reference Range Interpretation Comments PTT (test code = PTT) 32.8 s 22.9-35.8 [facility] CentralSvatzbzJRGLNIEIDK8433-33-74 12:25:00 Test Item Value Reference Range Interpretation Comments PT (test code = PT) 17.0 s 12.0-14.7 [place] [address]-08-21 12:25:00 Test Item Value Reference Range Interpretation Comments INR (test code = INR) 1.41 1 0.85-1.17 [facility] CentralRaukmanYJYQNUCRRA3692-76-64 12:25:00 Test Item Value Reference Range Interpretation Comments WBC (test code = WBC) 6.6 3.7-10.4 [facility] CentralJpcnapoJXMPMMWXHW9978-71-98 12:25:00 Test Item Value Reference Range Interpretation Comments RBC (test code = RBC) 2.58 4.20-5.40 [facility] CentralGpknvacFTIPQJJUBO2328-31-79 12:25:00 Test Item Value Reference Range Interpretation Comments Hgb (test code = Hgb) 7.6 12.0-16.0 [facility] CentralEhqjdbtRRJVJDBGYC8711-76-02 12:25:00 Test Item Value Reference Range Interpretation Comments Hct (test code = Hct) 22.8 36.0-48.0 [facility] CentralCqnxedvBIQZRVBHEI3429-91-63 12:25:00 Test Item Value Reference Range Interpretation Comments MCV (test code = MCV) 88.2 80.0-98.0 [facility] CentralRmbtgqrGATIKGTQGI6109-31-10 12:25:00 Test Item Value Reference Range Interpretation Comments MCH (test code = MCH) 29.6 pg 27.0-31.0 [facility] CentralQwpacpxJJVFFRPOEZ8743-16-65 12:25:00 Test Item Value Reference Range Interpretation Comments MCHC (test code = MCHC) 33.6 32.0-36.0 [facility] CentralYjlrnhvAAFKLTMHGN5427-03-07 12:25:00 Test Item Value Reference Range Interpretation Comments RDW (test code = RDW) 15.2 11.5-14.5 [facility] CentralRyzduaqFDBJONNJRK0455-11-83 12:25:00 Test Item Value Reference Range Interpretation Comments Platelet (test code = Platelet) 421 133-450 [facility] CentralDxtjslqGMTPWHFYIR7715-24-87 12:25:00 Test Item Value Reference Range Interpretation Comments MPV (test code = MPV) 8.9 7.4-10.4 [place] 853501-08-21 12:25:0024[facility] 2021-02-11 12:25:008.5[place] 12:25:0011.6[facility]2021-08-21 12:25:00 Test Item Value Reference Range Interpretation Comments Iron (test code = Iron) 30 [facility]2021-08-21 12:25:00 Test Item Value Reference Range Interpretation Comments TIBC (test code = TIBC) 252 [facility]2021-08-21 12:25:00 Test Item Value Reference Range Interpretation Comments % Satur Fe (test code = % Satur Fe) 12 [facility]2021-08-21 12:25:00 Test Item Value Reference Range Interpretation Comments Glucose Lvl (test code = Glucose Lvl) 99 70-99 [facility]2021-08-21 12:25:00 Test Item Value Reference Range Interpretation Comments BUN (test code = BUN) 7 7-22 [facility]2021-08-21 12:25:00 Test Item Value Reference Range Interpretation Comments Creatinine Lvl (test code = Creatinine 0.60 0.50-1.40 Lvl) [place] [address]3501-08-21 12:25:00 Test Item Value Reference Range Interpretation Comments Sodium Lvl (test code = Sodium Lvl) 148 135-145 [place] 853501-08-21 12:25:00 Test Item Value Reference Range Interpretation Comments Potassium Lvl (test code = Potassium 3.6 3.5-5.1 Lvl) [place] [address]3501-08-21 12:25:00 Test Item Value Reference Range Interpretation Comments Chloride Lvl (test code = Chloride Lvl) 116 95-109 [place] [address]3501-08-21 12:25:00 Test Item Value Reference Range Interpretation Comments CO2 (test code = CO2) 24 24-32 [place] [address]3501-08-21 12:25:00 Test Item Value Reference Range Interpretation Comments Calcium Lvl (test code = Calcium Lvl) 8.5 8.5-10.5 [place] [address]3501-08-21 12:25:00 Test Item Value Reference Range Interpretation Comments AGAP (test code = AGAP) 11.6 10.0-20.0 [place] [address]3501-08-21 12:25:00 Test Item Value Reference Range Interpretation Comments eGFR (test code = eGFR) 94 [place] 139731-08-21 12:25:00 Test Item Value Reference Range Interpretation Comments Segs (test code = Segs) 60.4 45.0-75.0 [place] 139731-08-21 12:25:00 Test Item Value Reference Range Interpretation Comments Lymphocytes (test code = Lymphocytes) 28.7 20.0-40.0 [place] [address]-08-21 12:25:00 Test Item Value Reference Range Interpretation Comments Monocytes (test code = Monocytes) 7.2 2.0-12.0 [place] 139731-08-21 12:25:00 Test Item Value Reference Range Interpretation Comments Eosinophils (test code = 2.8 See_Comment [A utomated message] The Eosinophils) system which ge nerated this result tra nsmitted reference range : <=4.0. The reference r arelis was not used to int erpret this result as normal/abnormal . [place] 139731-08-21 12:25:00 Test Item Value Reference Range Interpretation Comments Basophils (test code = 0.9 See_Comment [Aut omated message] The Basophils) system which ge nerated this result tra nsmitted reference range : <=1.0. The reference r arelis was not used to int erpret this result as normal/abnormal . [place] 139731-08-21 12:25:00 Test Item Value Reference Range Interpretation Comments Neutrophils # (test code = Neutrophils 4.0 1.5-8.1 #) [place] 139731-08-21 12:25:00 Test Item Value Reference Range Interpretation Comments Lymphocytes # (test code = Lymphocytes 1.9 1.0-5.5 #) [place] 139731-08-21 12:25:00 Test Item Value Reference Range Interpretation Comments Monocytes # (test code 0.5 See_Comment [Aut omated message] The = Monocytes #) system which generated this result tra nsmitted reference range : <=0.8. The reference r arelis was not used to int erpret this result as normal/abnormal . [facility] CentralXbnyecxVCQHBREGKF7696-82-45 12:25:00 Test Item Value Reference Range Interpretation Comments Eosinophils # (test code 0.2 See_Comment [A utomated message] The = Eosinophils #) system whic h generated this result tra nsmitted reference range : <=0.5. The reference r arelis was not used to int erpret this result as normal/abnormal . [facility] CentralIlrptdyPPERCKPJDY1810-06-63 12:25:00 Test Item Value Reference Range Interpretation Comments Basophils # (test code 0.1 See_Comment [Aut omated message] The = Basophils #) system which generated this result tra nsmitted reference range : <=0.2. The reference r arelis was not used to int erpret this result as normal/abnormal . [place] 139731-08-21 12:25:00 Test Item Value Reference Range Interpretation Comments PTT (test code = PTT) 32.8 s 22.9-35.8 [place] 139731-08-21 12:25:00 Test Item Value Reference Range Interpretation Comments PT (test code = PT) 17.0 s 12.0-14.7 [place] 139731-08-21 12:25:00 Test Item Value Reference Range Interpretation Comments INR (test code = INR) 1.41 1 0.85-1.17 [place] [address]-08-21 12:25:00 Test Item Value Reference Range Interpretation Comments WBC (test code = WBC) 6.6 3.7-10.4 [place] 1397[address]-08-21 12:25:00 Test Item Value Reference Range Interpretation Comments RBC (test code = RBC) 2.58 4.20-5.40 [place] 1397[address]-08-21 12:25:00 Test Item Value Reference Range Interpretation Comments Hgb (test code = Hgb) 7.6 12.0-16.0 [place] [address]-08-21 12:25:00 Test Item Value Reference Range Interpretation Comments Hct (test code = Hct) 22.8 36.0-48.0 [place] [address]-08-21 12:25:00 Test Item Value Reference Range Interpretation Comments MCV (test code = MCV) 88.2 80.0-98.0 [facility] CentralPqyewxlSDUJYTQTMU7214-78-66 12:25:00 Test Item Value Reference Range Interpretation Comments MCH (test code = MCH) 29.6 pg 27.0-31.0 [facility] CentralFwxtlqaGDZFFAARLB4662-72-05 12:25:00 Test Item Value Reference Range Interpretation Comments MCHC (test code = MCHC) 33.6 32.0-36.0 [place] 1397[address]-08-21 12:25:00 Test Item Value Reference Range Interpretation Comments RDW (test code = RDW) 15.2 11.5-14.5 [place] 1397[address]-08-21 12:25:00 Test Item Value Reference Range Interpretation Comments Platelet (test code = Platelet) 421 925-450 [facility] CentralCpgzzqbXKBXUXZJFS5072-46-46 12:25:00 Test Item Value Reference Range Interpretation Comments MPV (test code = MPV) 8.9 7.4-10.4 [facility]2021-08-21 12:25:0094[facility]-02-[facility] 12:25:0060.4[facility]2021-08-21 12:25:00 Test Item Value Reference Range Interpretation Comments Iron (test code = Iron) 30 [facility]2021-08-21 12:25:00 Test Item Value Reference Range Interpretation Comments TIBC (test code = TIBC) 252 [facility]2021-08-21 12:25:00 Test Item Value Reference Range Interpretation Comments % Satur Fe (test code = % Satur Fe) 12 [facility]2021-08-21 12:25:00 Test Item Value Reference Range Interpretation Comments Glucose Lvl (test code = Glucose Lvl) 99 70-99 [facility]2021-08-21 12:25:00 Test Item Value Reference Range Interpretation Comments BUN (test code = BUN) 7 7-22 [facility]2021-08-21 12:25:00 Test Item Value Reference Range Interpretation Comments Creatinine Lvl (test code = Creatinine 0.60 0.50-1.40 Lvl) [facility] CentralGefcdupKVDLNAVGYY7432-17-32 12:25:0028.7[facility] PANEL 2021-02-11 12:25:00 Test Item Value Reference Range Interpretation Comments Sodium Lvl (test code = Sodium Lvl) 148 135-145 [facility]2021-08-21 12:25:00 Test Item Value Reference Range Interpretation Comments Potassium Lvl (test code = Potassium 3.6 3.5-5.1 Lvl) [facility]2021-08-21 12:25:00 Test Item Value Reference Range Interpretation Comments Chloride Lvl (test code = Chloride Lvl) 116 95-109 [facility]2021-08-21 12:25:00 Test Item Value Reference Range Interpretation Comments CO2 (test code = CO2) 24 24-32 [facility]2021-08-21 12:25:00 Test Item Value Reference Range Interpretation Comments Calcium Lvl (test code = Calcium Lvl) 8.5 8.5-10.5 [facility]2021-08-21 12:25:00 Test Item Value Reference Range Interpretation Comments AGAP (test code = AGAP) 11.6 10.0-20.0 [facility]2021-08-21 12:25:00 Test Item Value Reference Range Interpretation Comments eGFR (test code = eGFR) 94 [facility] CentralFwmesfzDZMNUVRUSZ2411-48-75 12:25:00 Test Item Value Reference Range Interpretation Comments Segs (test code = Segs) 60.4 45.0-75.0 [facility] CentralTigyrztSKMOOWPJRK1152-10-98 12:25:00 Test Item Value Reference Range Interpretation Comments Lymphocytes (test code = Lymphocytes) 28.7 20.0-40.0 [facility] CentralHlffturZPWWJSCUPQ5747-07-94 12:25:00 Test Item Value Reference Range Interpretation Comments Monocytes (test code = Monocytes) 7.2 2.0-12.0 [facility] CentralVrjobfvRAQXBITJFH9744-50-47 12:25:007.2[facility] 2021-02-11 12:25:00 Test Item Value Reference Range Interpretation Comments Eosinophils (test code = 2.8 See_Comment [A utomated message] The Eosinophils) system which ge nerated this result tra nsmitted reference range : <=4.0. The reference r arelis was not used to int erpret this result as normal/abnormal . [facility]2021-08-21 12:25:00 Test Item Value Reference Range Interpretation Comments Iron (test code = Iron) 30 [facility]2021-08-21 12:25:00 Test Item Value Reference Range Interpretation Comments TIBC (test code = TIBC) 252 [facility] CentralUyrrfgzQGOIWGMTIV0675-62-00 12:25:00 Test Item Value Reference Range Interpretation Comments Basophils (test code = 0.9 See_Comment [Aut omated message] The Basophils) system which ge nerated this result tra nsmitted reference range : <=1.0. The reference r arelis was not used to int erpret this result as normal/abnormal . [facility]2021-08-21 12:25:00 Test Item Value Reference Range Interpretation Comments % Satur Fe (test code = % Satur Fe) 12 [facility]2021-08-21 12:25:00 Test Item Value Reference Range Interpretation Comments Glucose Lvl (test code = Glucose Lvl) 99 70-99 [facility]2021-08-21 12:25:00 Test Item Value Reference Range Interpretation Comments BUN (test code = BUN) 7 7-22 [facility]2021-08-21 12:25:00 Test Item Value Reference Range Interpretation Comments Creatinine Lvl (test code = Creatinine 0.60 0.50-1.40 Lvl) [place]3501-08-21 12:25:00 Test Item Value Reference Range Interpretation Comments Sodium Lvl (test code = Sodium Lvl) 148 135-145 [facility]2021-08-21 12:25:00 Test Item Value Reference Range Interpretation Comments Potassium Lvl (test code = Potassium 3.6 3.5-5.1 Lvl) [facility]2021-08-21 12:25:00 Test Item Value Reference Range Interpretation Comments Chloride Lvl (test code = Chloride Lvl) 116 95-109 [place] 853501-08-21 12:25:00 Test Item Value Reference Range Interpretation Comments CO2 (test code = CO2) 24 24-32 [place] [address]3501-08-21 12:25:00 Test Item Value Reference Range Interpretation Comments Calcium Lvl (test code = Calcium Lvl) 8.5 8.5-10.5 [place] [address]3501-08-21 12:25:00 Test Item Value Reference Range Interpretation Comments AGAP (test code = AGAP) 11.6 10.0-20.0 [place] 139731-08-21 12:25:00 Test Item Value Reference Range Interpretation Comments Neutrophils # (test code = Neutrophils 4.0 1.5-8.1 #) [place] [address]3501-08-21 12:25:00 Test Item Value Reference Range Interpretation Comments eGFR (test code = eGFR) 94 [place] 139731-08-21 12:25:00 Test Item Value Reference Range Interpretation Comments Segs (test code = Segs) 60.4 45.0-75.0 [place] 139731-08-21 12:25:00 Test Item Value Reference Range Interpretation Comments Lymphocytes (test code = Lymphocytes) 28.7 20.0-40.0 [place] 139731-08-21 12:25:00 Test Item Value Reference Range Interpretation Comments Monocytes (test code = Monocytes) 7.2 2.0-12.0 [place] 1397[address]-08-21 12:25:00 Test Item Value Reference Range Interpretation Comments Eosinophils (test code = 2.8 See_Comment [A utomated message] The Eosinophils) system which ge nerated this result tra nsmitted reference range : <=4.0. The reference r arelis was not used to int erpret this result as normal/abnormal . [place] 1397[address]-08-21 12:25:00 Test Item Value Reference Range Interpretation Comments Basophils (test code = 0.9 See_Comment [Aut omated message] The Basophils) system which ge nerated this result tra nsmitted reference range : <=1.0. The reference r arelis was not used to int erpret this result as normal/abnormal . [place] 1397[address]-08-21 12:25:00 Test Item Value Reference Range Interpretation Comments Neutrophils # (test code = Neutrophils 4.0 1.5-8.1 #) [place] 1397[address]-08-21 12:25:00 Test Item Value Reference Range Interpretation Comments Lymphocytes # (test code = Lymphocytes 1.9 1.0-5.5 #) [place] 1397[address]-08-21 12:25:00 Test Item Value Reference Range Interpretation Comments Monocytes # (test code 0.5 See_Comment [Aut omated message] The = Monocytes #) system which generated this result tra nsmitted reference range : <=0.8. The reference r arelis was not used to int erpret this result as normal/abnormal . [facility] CentralGyhvtzqAUIRBSHLFU8673-05-09 12:25:00 Test Item Value Reference Range Interpretation Comments Eosinophils # (test code 0.2 See_Comment [A utomated message] The = Eosinophils #) system whic h generated this result tra nsmitted reference range : <=0.5. The reference r arelis was not used to int erpret this result as normal/abnormal . [facility] CentralAwmdjnfDRXDOVDCMQ6093-03-54 12:25:00 Test Item Value Reference Range Interpretation Comments Lymphocytes # (test code = Lymphocytes 1.9 1.0-5.5 #) [facility] CentralKppaiscAMZKYRMIUS7568-28-65 12:25:00 Test Item Value Reference Range Interpretation Comments Basophils # (test code 0.1 See_Comment [Aut omated message] The = Basophils #) system which generated this result tra nsmitted reference range : <=0.2. The reference r arelis was not used to int erpret this result as normal/abnormal . [facility] CentralMgxmbxeMDUWNVSABH1973-09-37 12:25:00 Test Item Value Reference Range Interpretation Comments PTT (test code = PTT) 32.8 s 22.9-35.8 [place] [address]-08-21 12:25:00 Test Item Value Reference Range Interpretation Comments PT (test code = PT) 17.0 s 12.0-14.7 [place] 139731-08-21 12:25:00 Test Item Value Reference Range Interpretation Comments INR (test code = INR) 1.41 1 0.85-1.17 [place] [address]-08-21 12:25:00 Test Item Value Reference Range Interpretation Comments WBC (test code = WBC) 6.6 3.7-10.4 [place] [address]-08-21 12:25:00 Test Item Value Reference Range Interpretation Comments RBC (test code = RBC) 2.58 4.20-5.40 [place] [address]-08-21 12:25:00 Test Item Value Reference Range Interpretation Comments Hgb (test code = Hgb) 7.6 12.0-16.0 [facility]NwzzlcdFXYVNNHEQV0200-84-88 12:25:00 Test Item Value Reference Range Interpretation Comments Hct (test code = Hct) 22.8 36.0-48.0 [facility] CentralDwlyxigEQXJKEDBVS4528-00-61 12:25:00 Test Item Value Reference Range Interpretation Comments MCV (test code = MCV) 88.2 80.0-98.0 [place] 139731-08-21 12:25:00 Test Item Value Reference Range Interpretation Comments MCH (test code = MCH) 29.6 pg 27.0-31.0 [facility] CentralPxqbywmQRSOXEWPSI0675-77-61 12:25:00 Test Item Value Reference Range Interpretation Comments Monocytes # (test code 0.5 See_Comment [Aut omated message] The = Monocytes #) system which generated this result tra nsmitted reference range : <=0.8. The reference r arelis was not used to int erpret this result as normal/abnormal . [facility] CentralXatfjjtLMGNMLTYCO1408-94-97 12:25:00 Test Item Value Reference Range Interpretation Comments MCHC (test code = MCHC) 33.6 32.0-36.0 [place] 139731-08-21 12:25:00 Test Item Value Reference Range Interpretation Comments RDW (test code = RDW) 15.2 11.5-14.5 [facility] CentralIxnkpmoFWLHFQQMQK5931-84-91 12:25:00 Test Item Value Reference Range Interpretation Comments Platelet (test code = Platelet) 421 133-450 [facility] CentralXuizqjgYGVYYZCGRD2307-15-10 12:25:00 Test Item Value Reference Range Interpretation Comments MPV (test code = MPV) 8.9 7.4-10.4 [place] [address]731-08-21 12:25:00 Test Item Value Reference Range Interpretation Comments Eosinophils # (test code 0.2 See_Comment [A utomated message] The = Eosinophils #) system whic h generated this result tra nsmitted reference range : <=0.5. The reference r arelis was not used to int erpret this result as normal/abnormal . [facility] CentralQgmcpdvXQBZWRAXAF0553-41-34 12:25:00 Test Item Value Reference Range Interpretation Comments Basophils # (test code 0.1 See_Comment [Aut omated message] The = Basophils #) system which generated this result tra nsmitted reference range : <=0.2. The reference r arelis was not used to int erpret this result as normal/abnormal . [facility] CentralNbxxosjGXWPXUVNUR8138-45-58 12:25:00 Test Item Value Reference Range Interpretation Comments PTT (test code = PTT) 32.8 s 22.9-35.8 [facility] CentralSmycvgaFDCKFJZABZ3568-86-70 12:25:00 Test Item Value Reference Range Interpretation Comments PT (test code = PT) 17.0 s 12.0-14.7 [facility] CentralDvmxnwrJNNAOAGRRO7808-84-70 12:25:00 Test Item Value Reference Range Interpretation Comments INR (test code = INR) 1.41 1 0.85-1.17 [facility] CentralRjjeygpTYBTXUQYSN8019-31-86 [facility] Test Item Value Reference Range Interpretation Comments WBC (test code = WBC) 6.6 3.7-10.4 [facility] CentralXdcueqdLRGXYWQCIM3868-74-42 12:25:00 Test Item Value Reference Range Interpretation Comments RBC (test code = RBC) 2.58 4.20-5.40 [facility] CentralYqsbfqkAKSBOXYCPB7683-73-59 12:25:00 Test Item Value Reference Range Interpretation Comments Hgb (test code = Hgb) 7.6 12.0-16.0 [facility] CentralLdcxniaHWCDRDQAAK6724-99-07 12:25:00 Test Item Value Reference Range Interpretation Comments Hct (test code = Hct) 22.8 36.0-48.0 [facility] CentralUqhatuxSVIHVCQXMY9370-88-21 12:25:00 Test Item Value Reference Range Interpretation Comments MCV (test code = MCV) 88.2 80.0-98.0 [facility] CentralYyirbsaCIOIVRNWEU5331-28-88 12:25:00 Test Item Value Reference Range Interpretation Comments MCH (test code = MCH) 29.6 pg 27.0-31.0 [facility] CentralIlfdzvsMTWLNTEOJH2908-55-72 12:25:00 Test Item Value Reference Range Interpretation Comments MCHC (test code = MCHC) 33.6 32.0-36.0 [facility] CentralJbzvulhYSLKYZRRXL8707-54-16 12:25:00 Test Item Value Reference Range Interpretation Comments RDW (test code = RDW) 15.2 11.5-14.5 [place] 139731-08-21 12:25:00 Test Item Value Reference Range Interpretation Comments Platelet (test code = Platelet) 421 133-450 [facility] CentralZyftdonJCGTUUJNVU1878-85-41 12:25:00 Test Item Value Reference Range Interpretation Comments MPV (test code = MPV) 8.9 7.4-10.4 [place] 139731-08-21 12:[facility] 12:25:004.0[facility] HospitalUhuptxzQGXGGSZWLN5541-60-17 12:25:001.9[facility]2021-08-21 12:25:00 Test Item Value Reference Range Interpretation Comments Iron (test code = Iron) 30 [facility]2021-08-21 12:25:00 Test Item Value Reference Range Interpretation Comments TIBC (test code = TIBC) 252 [facility]2021-08-21 12:25:00 Test Item Value Reference Range Interpretation Comments % Satur Fe (test code = % Satur Fe) 12 [facility]2021-08-21 12:25:00 Test Item Value Reference Range Interpretation Comments Glucose Lvl (test code = Glucose Lvl) 99 70-99 [facility]2021-08-21 12:25:00 Test Item Value Reference Range Interpretation Comments BUN (test code = BUN) 7 7-22 [facility]2021-08-21 12:25:00 Test Item Value Reference Range Interpretation Comments Creatinine Lvl (test code = Creatinine 0.60 0.50-1.40 Lvl) [place] 853501-08-21 12:25:00 Test Item Value Reference Range Interpretation Comments Sodium Lvl (test code = Sodium Lvl) 148 135-145 [place] 853501-08-21 12:25:00 Test Item Value Reference Range Interpretation Comments Potassium Lvl (test code = Potassium 3.6 3.5-5.1 Lvl) [place] 853501-08-21 12:25:00 Test Item Value Reference Range Interpretation Comments Chloride Lvl (test code = Chloride Lvl) 116 95-109 [place] 853501-08-21 12:25:00 Test Item Value Reference Range Interpretation Comments CO2 (test code = CO2) 24 24-32 [place] 853501-08-21 12:25:00 Test Item Value Reference Range Interpretation Comments Calcium Lvl (test code = Calcium Lvl) 8.5 8.5-10.5 [place] 853501-08-21 12:25:00 Test Item Value Reference Range Interpretation Comments AGAP (test code = AGAP) 11.6 10.0-20.0 [place] 853501-08-21 12:25:00 Test Item Value Reference Range Interpretation Comments eGFR (test code = eGFR) 94 [place] 139731-08-21 12:25:00 Test Item Value Reference Range Interpretation Comments Segs (test code = Segs) 60.4 45.0-75.0 [place] 139731-08-21 12:25:00 Test Item Value Reference Range Interpretation Comments Lymphocytes (test code = Lymphocytes) 28.7 20.0-40.0 [place] 139731-08-21 12:25:00 Test Item Value Reference Range Interpretation Comments Monocytes (test code = Monocytes) 7.2 2.0-12.0 [place] [address]731-08-21 12:25:00 Test Item Value Reference Range Interpretation Comments Eosinophils (test code = 2.8 See_Comment [A utomated message] The Eosinophils) system which ge nerated this result tra nsmitted reference range : <=4.0. The reference r arelis was not used to int erpret this result as normal/abnormal . [place] 1397[address]-08-21 12:25:00 Test Item Value Reference Range Interpretation Comments Basophils (test code = 0.9 See_Comment [Aut omated message] The Basophils) system which ge nerated this result tra nsmitted reference range : <=1.0. The reference r arelis was not used to int erpret this result as normal/abnormal . [place] 139731-08-21 12:25:00 Test Item Value Reference Range Interpretation Comments Neutrophils # (test code = Neutrophils 4.0 1.5-8.1 #) [place] 1397[address]-08-21 12:25:00 Test Item Value Reference Range Interpretation Comments Lymphocytes # (test code = Lymphocytes 1.9 1.0-5.5 #) [facility] CentralEalpwaqEUVTHJOVPC5096-67-68 12:25:00 Test Item Value Reference Range Interpretation Comments Monocytes # (test code 0.5 See_Comment [Aut omated message] The = Monocytes #) system which generated this result tra nsmitted reference range : <=0.8. The reference r arelis was not used to int erpret this result as normal/abnormal . [facility] CentralMyupobtWMDAXFVUQM4199-57-92 12:25:00 Test Item Value Reference Range Interpretation Comments Eosinophils # (test code 0.2 See_Comment [A utomated message] The = Eosinophils #) system whic h generated this result tra nsmitted reference range : <=0.5. The reference r arelis was not used to int erpret this result as normal/abnormal . [facility] CentralNbqsadyOACFKDFVBP9958-56-77 12:25:00 Test Item Value Reference Range Interpretation Comments Basophils # (test code 0.1 See_Comment [Aut omated message] The = Basophils #) system which generated this result tra nsmitted reference range : <=0.2. The reference r arelis was not used to int erpret this result as normal/abnormal . [facility] CentralRbisjcbPITFEUSXBY3314-98-73 12:25:00 Test Item Value Reference Range Interpretation Comments PTT (test code = PTT) 32.8 s 22.9-35.8 [place] 139731-08-21 12:25:00 Test Item Value Reference Range Interpretation Comments PT (test code = PT) 17.0 s 12.0-14.7 [place] 139731-08-21 12:25:00 Test Item Value Reference Range Interpretation Comments INR (test code = INR) 1.41 1 0.85-1.17 [place] 139731-08-21 12:25:00 Test Item Value Reference Range Interpretation Comments WBC (test code = WBC) 6.6 3.7-10.4 [place] 1397[address]-08-21 12:25:00 Test Item Value Reference Range Interpretation Comments RBC (test code = RBC) 2.58 4.20-5.40 [place] 1397[address]-08-21 12:25:00 Test Item Value Reference Range Interpretation Comments Hgb (test code = Hgb) 7.6 12.0-16.0 [facility]plwtyxXGHAENORME0254-37-27 12:25:00 Test Item Value Reference Range Interpretation Comments Hct (test code = Hct) 22.8 36.0-48.0 [facility] CentralTuavrmzQVHFNSYHXM4474-51-24 12:25:00 Test Item Value Reference Range Interpretation Comments MCV (test code = MCV) 88.2 80.0-98.0 [facility] CentralZseonetDKRHNEWBLE2654-72-71 12:25:00 Test Item Value Reference Range Interpretation Comments MCH (test code = MCH) 29.6 pg 27.0-31.0 [facility] CentralAraumjrOFCEPTFGRN1025-54-06 12:25:00 Test Item Value Reference Range Interpretation Comments MCHC (test code = MCHC) 33.6 32.0-36.0 [facility] CentralQwdcivyLYHJSDVIUD2663-81-01 12:25:00 Test Item Value Reference Range Interpretation Comments RDW (test code = RDW) 15.2 11.5-14.5 [facility] CentralAgvdpsfXCCQBCEVVE5925-94-52 12:25:00 Test Item Value Reference Range Interpretation Comments Platelet (test code = Platelet) 421 133-450 [facility] CentralEarerypMTSJOUINJF4705-82-00 12:25:00 Test Item Value Reference Range Interpretation Comments MPV (test code = MPV) 8.9 7.4-10.4 [facility] CentralFjfbkfmQJMSIUYFVH0656-60-74 12:25:000.5[facility] 2021-02-11 12:25:000.2[facility] SnxqxkgLNXHVYRHPA8866-90-22 12:25:000.1[facility] KageoujGIFFXJCEQQ7688-30-48 12:25:00 Test Item Value Reference Range Interpretation Comments PTT (test code = PTT) 32.8 s 22.9-35.8 [facility]2021-08-21 12:25:00 Test Item Value Reference Range Interpretation Comments Iron (test code = Iron) 30 [facility]2021-08-21 12:25:00 Test Item Value Reference Range Interpretation Comments TIBC (test code = TIBC) 252 [facility]2021-08-21 12:25:00 Test Item Value Reference Range Interpretation Comments % Satur Fe (test code = % Satur Fe) 12 [facility]2021-08-21 12:25:00 Test Item Value Reference Range Interpretation Comments Glucose Lvl (test code = Glucose Lvl) 99 70-99 [place] 853501-08-21 12:25:00 Test Item Value Reference Range Interpretation Comments BUN (test code = BUN) 7 7-22 [place] 853501-08-21 12:25:00 Test Item Value Reference Range Interpretation Comments Creatinine Lvl (test code = Creatinine 0.60 0.50-1.40 Lvl) [place] 853501-08-21 12:25:00 Test Item Value Reference Range Interpretation Comments Sodium Lvl (test code = Sodium Lvl) 148 135-145 [place] 853501-08-21 12:25:00 Test Item Value Reference Range Interpretation Comments Potassium Lvl (test code = Potassium 3.6 3.5-5.1 Lvl) [place] 853501-08-21 12:25:00 Test Item Value Reference Range Interpretation Comments Chloride Lvl (test code = Chloride Lvl) 116 95-109 [place] 853501-08-21 12:25:00 Test Item Value Reference Range Interpretation Comments CO2 (test code = CO2) 24 24-32 [place] 853501-08-21 12:25:00 Test Item Value Reference Range Interpretation Comments Calcium Lvl (test code = Calcium Lvl) 8.5 8.5-10.5 [place] 853501-08-21 12:25:00 Test Item Value Reference Range Interpretation Comments AGAP (test code = AGAP) 11.6 10.0-20.0 [place] 853501-08-21 12:25:00 Test Item Value Reference Range Interpretation Comments eGFR (test code = eGFR) 94 [place] 139731-08-21 12:25:00 Test Item Value Reference Range Interpretation Comments Segs (test code = Segs) 60.4 45.0-75.0 [place] 139731-08-21 12:25:00 Test Item Value Reference Range Interpretation Comments Lymphocytes (test code = Lymphocytes) 28.7 20.0-40.0 [place] [address]-08-21 12:25:00 Test Item Value Reference Range Interpretation Comments Monocytes (test code = Monocytes) 7.2 2.0-12.0 [place] [address]-08-21 12:25:00 Test Item Value Reference Range Interpretation Comments Eosinophils (test code = 2.8 See_Comment [A utomated message] The Eosinophils) system which ge nerated this result tra nsmitted reference range : <=4.0. The reference r arelis was not used to int erpret this result as normal/abnormal . [place] 139731-08-21 12:25:00 Test Item Value Reference Range Interpretation Comments Basophils (test code = 0.9 See_Comment [Aut omated message] The Basophils) system which ge nerated this result tra nsmitted reference range : <=1.0. The reference r arelis was not used to int erpret this result as normal/abnormal . [place]731-08-21 12:25:00 Test Item Value Reference Range Interpretation Comments Neutrophils # (test code = Neutrophils 4.0 1.5-8.1 #) [place] [address]-08-21 12:25:00 Test Item Value Reference Range Interpretation Comments Lymphocytes # (test code = Lymphocytes 1.9 1.0-5.5 #) [place] [address]731-08-21 12:25:00 Test Item Value Reference Range Interpretation Comments Monocytes # (test code 0.5 See_Comment [Aut omated message] The = Monocytes #) system which generated this result tra nsmitted reference range : <=0.8. The reference r arelis was not used to int erpret this result as normal/abnormal . [place]7[address]-08-21 12:25:00 Test Item Value Reference Range Interpretation Comments Eosinophils # (test code 0.2 See_Comment [A utomated message] The = Eosinophils #) system whic h generated this result tra nsmitted reference range : <=0.5. The reference r arelis was not used to int erpret this result as normal/abnormal . [place] [address]-08-21 12:25:00 Test Item Value Reference Range Interpretation Comments Basophils # (test code 0.1 See_Comment [Aut omated message] The = Basophils #) system which generated this result tra nsmitted reference range : <=0.2. The reference r arelis was not used to int erpret this result as normal/abnormal . [place] 1397[address]-08-21 12:25:00 Test Item Value Reference Range Interpretation Comments PTT (test code = PTT) 32.8 s 22.9-35.8 [facility] CentralRqpacjuVFCZLKMKHB4829-14-08 12:25:00 Test Item Value Reference Range Interpretation Comments PT (test code = PT) 17.0 s 12.0-14.7 [place] [address]-08-21 12:25:00 Test Item Value Reference Range Interpretation Comments INR (test code = INR) 1.41 1 0.85-1.17 [place] [address]-08-21 12:25:00 Test Item Value Reference Range Interpretation Comments WBC (test code = WBC) 6.6 3.7-10.4 [place] [address]-08-21 12:25:00 Test Item Value Reference Range Interpretation Comments RBC (test code = RBC) 2.58 4.20-5.40 [facility] CentralVihhsbvOESKBUFPPH8049-94-55 12:25:00 Test Item Value Reference Range Interpretation Comments Hgb (test code = Hgb) 7.6 12.0-16.0 [place] [address]-08-21 12:25:00 Test Item Value Reference Range Interpretation Comments Hct (test code = Hct) 22.8 36.0-48.0 [facility] CentralEgddnwbIVSBOPOCKK7975-09-95 12:25:00 Test Item Value Reference Range Interpretation Comments MCV (test code = MCV) 88.2 80.0-98.0 [facility] CentralUojfrxjZFWMOEWSGX3871-50-74 12:25:00 Test Item Value Reference Range Interpretation Comments MCH (test code = MCH) 29.6 pg 27.0-31.0 [facility] CentralMqhwcqkSUPVNXEACZ7459-48-71 12:25:00 Test Item Value Reference Range Interpretation Comments MCHC (test code = MCHC) 33.6 32.0-36.0 [facility] CentralSamrxrjKIBKZIIEBD8840-47-34 12:25:00 Test Item Value Reference Range Interpretation Comments RDW (test code = RDW) 15.2 11.5-14.5 [place] [address]-08-21 12:25:00 Test Item Value Reference Range Interpretation Comments Platelet (test code = Platelet) 421 133-450 [facility] CentralHnpxwlrYFOLIDSMAY5589-14-85 12:25:00 Test Item Value Reference Range Interpretation Comments MPV (test code = MPV) 8.9 7.4-10.4 [facility] CentralHglelkwEOKZBMIICC3423-49-69 12:25:00 Test Item Value Reference Range Interpretation Comments PT (test code = PT) 17.0 s 12.0-14.7 [facility] CentralUhpajahNJNZBQKYFK0972-02-34 12:25:00 Test Item Value Reference Range Interpretation Comments INR (test code = INR) 1.41 1 0.85-1.17 [facility] CentralRurrcieJLDIFUIRSH3987-43-01 12:25:006.6[facility] 2021-02-11 12:25:002.58[facility]2021-08-21 12:25:00 Test Item Value Reference Range Interpretation Comments Iron (test code = Iron) 30 [facility]2021-08-21 12:25:00 Test Item Value Reference Range Interpretation Comments TIBC (test code = TIBC) 252 [facility]2021-08-21 12:25:00 Test Item Value Reference Range Interpretation Comments % Satur Fe (test code = % Satur Fe) 12 [facility]2021-08-21 12:25:00 Test Item Value Reference Range Interpretation Comments Glucose Lvl (test code = Glucose Lvl) 99 70-99 [facility]2021-08-21 12:25:00 Test Item Value Reference Range Interpretation Comments BUN (test code = BUN) 7 7-22 [place] 853501-08-21 12:25:00 Test Item Value Reference Range Interpretation Comments Creatinine Lvl (test code = Creatinine 0.60 0.50-1.40 Lvl) [place] 853501-08-21 12:25:00 Test Item Value Reference Range Interpretation Comments Sodium Lvl (test code = Sodium Lvl) 148 135-145 [place] 853501-08-21 12:25:00 Test Item Value Reference Range Interpretation Comments Potassium Lvl (test code = Potassium 3.6 3.5-5.1 Lvl) [place] 853501-08-21 12:25:00 Test Item Value Reference Range Interpretation Comments Chloride Lvl (test code = Chloride Lvl) 116 95-109 [place] 853501-08-21 12:25:00 Test Item Value Reference Range Interpretation Comments CO2 (test code = CO2) 24 24-32 [place] [address]3501-08-21 12:25:00 Test Item Value Reference Range Interpretation Comments Calcium Lvl (test code = Calcium Lvl) 8.5 8.5-10.5 [place] 853501-08-21 12:25:00 Test Item Value Reference Range Interpretation Comments AGAP (test code = AGAP) 11.6 10.0-20.0 [place] 853501-08-21 12:25:00 Test Item Value Reference Range Interpretation Comments eGFR (test code = eGFR) 94 [place] 139731-08-21 12:25:00 Test Item Value Reference Range Interpretation Comments Segs (test code = Segs) 60.4 45.0-75.0 [place] 139731-08-21 12:25:00 Test Item Value Reference Range Interpretation Comments Lymphocytes (test code = Lymphocytes) 28.7 20.0-40.0 [place] 139731-08-21 12:25:00 Test Item Value Reference Range Interpretation Comments Monocytes (test code = Monocytes) 7.2 2.0-12.0 [place] 1397[address]-08-21 12:25:00 Test Item Value Reference Range Interpretation Comments Eosinophils (test code = 2.8 See_Comment [A utomated message] The Eosinophils) system which ge nerated this result tra nsmitted reference range : <=4.0. The reference r arelis was not used to int erpret this result as normal/abnormal . [place] 1397[address]-08-21 12:25:00 Test Item Value Reference Range Interpretation Comments Basophils (test code = 0.9 See_Comment [Aut omated message] The Basophils) system which ge nerated this result tra nsmitted reference range : <=1.0. The reference r arelis was not used to int erpret this result as normal/abnormal . [place] 1397[address]-08-21 12:25:00 Test Item Value Reference Range Interpretation Comments Neutrophils # (test code = Neutrophils 4.0 1.5-8.1 #) [place] 1397[address]-08-21 12:25:00 Test Item Value Reference Range Interpretation Comments Lymphocytes # (test code = Lymphocytes 1.9 1.0-5.5 #) [place] [address]-08-21 12:25:00 Test Item Value Reference Range Interpretation Comments Monocytes # (test code 0.5 See_Comment [Aut omated message] The = Monocytes #) system which generated this result tra nsmitted reference range : <=0.8. The reference r arelis was not used to int erpret this result as normal/abnormal . [facility] CentralUylpkohRRZTXKJFRK1319-26-50 12:25:00 Test Item Value Reference Range Interpretation Comments Eosinophils # (test code 0.2 See_Comment [A utomated message] The = Eosinophils #) system whic h generated this result tra nsmitted reference range : <=0.5. The reference r arelis was not used to int erpret this result as normal/abnormal . [facility] CentralQsxikrmVZVMKVAXEC7149-17-69 12:25:00 Test Item Value Reference Range Interpretation Comments Basophils # (test code 0.1 See_Comment [Aut omated message] The = Basophils #) system which generated this result tra nsmitted reference range : <=0.2. The reference r arelis was not used to int erpret this result as normal/abnormal . [facility] CentralFdievpnKAFWTPFCPL3324-43-11 12:25:00 Test Item Value Reference Range Interpretation Comments PTT (test code = PTT) 32.8 s 22.9-35.8 [place] [address]-08-21 12:25:00 Test Item Value Reference Range Interpretation Comments PT (test code = PT) 17.0 s 12.0-14.7 [place]731-08-21 12:25:00 Test Item Value Reference Range Interpretation Comments INR (test code = INR) 1.41 1 0.85-1.17 [place] 139731-08-21 12:25:00 Test Item Value Reference Range Interpretation Comments WBC (test code = WBC) 6.6 3.7-10.4 [place] 1397[address]-08-21 12:25:00 Test Item Value Reference Range Interpretation Comments RBC (test code = RBC) 2.58 4.20-5.40 [place] [address]731-08-21 12:25:00 Test Item Value Reference Range Interpretation Comments Hgb (test code = Hgb) 7.6 12.0-16.0 [place] 139731-08-21 12:25:00 Test Item Value Reference Range Interpretation Comments Hct (test code = Hct) 22.8 36.0-48.0 [facility]neyKXXYCADHII9445-18-65 12:25:00 Test Item Value Reference Range Interpretation Comments MCV (test code = MCV) 88.2 80.0-98.0 [facility] CentralUcoagabZJEEYYIJVS0893-44-88 12:25:00 Test Item Value Reference Range Interpretation Comments MCH (test code = MCH) 29.6 pg 27.0-31.0 [facility] CentralRyjsmntNZUSCYRQDJ0140-30-54 12:25:00 Test Item Value Reference Range Interpretation Comments MCHC (test code = MCHC) 33.6 32.0-36.0 [facility] CentralOyneyreEJARSVSLWX0276-23-03 12:25:00 Test Item Value Reference Range Interpretation Comments RDW (test code = RDW) 15.2 11.5-14.5 [facility] CentralZasxefkEMXUEIMQPT0437-02-94 12:25:00 Test Item Value Reference Range Interpretation Comments Platelet (test code = Platelet) 421 133-450 [facility] CentralObwfeznYGENTABEYP7460-51-07 12:25:00 Test Item Value Reference Range Interpretation Comments MPV (test code = MPV) 8.9 7.4-10.4 [facility] CentralBthapydBKXSPVCBAZ0618-08-85 [facility] 12:25:0022.8[facility] SvmdrafAMKDBAIQPQ5126-17-24 12:25:0088.2[facility] RcryfemTLXDQEEZJJ6777-97-03 12:25:00 Test Item Value Reference Range Interpretation Comments MCH (test code = MCH) 29.6 pg 27.0-31.0 [facility] [id number] 12:25:00 Test Item Value Reference Range Interpretation Comments Iron (test code = Iron) 30 [facility]2021-08-21 12:25:00 Test Item Value Reference Range Interpretation Comments TIBC (test code = TIBC) 252 [facility]2021-08-21 12:25:00 Test Item Value Reference Range Interpretation Comments % Satur Fe (test code = % Satur Fe) 12 [facility] [id number] 12:25:00 Test Item Value Reference Range Interpretation Comments Glucose Lvl (test code = Glucose Lvl) 99 70-99 [place] 853501-08-21 12:25:00 Test Item Value Reference Range Interpretation Comments BUN (test code = BUN) 7 7-22 [place] 853501-08-21 12:25:00 Test Item Value Reference Range Interpretation Comments Creatinine Lvl (test code = Creatinine 0.60 0.50-1.40 Lvl) [place] 853501-08-21 12:25:00 Test Item Value Reference Range Interpretation Comments Sodium Lvl (test code = Sodium Lvl) 148 135-145 [place] 853501-08-21 12:25:00 Test Item Value Reference Range Interpretation Comments Potassium Lvl (test code = Potassium 3.6 3.5-5.1 Lvl) [place] 853501-08-21 12:25:00 Test Item Value Reference Range Interpretation Comments Chloride Lvl (test code = Chloride Lvl) 116 95-109 [place] 853501-08-21 12:25:00 Test Item Value Reference Range Interpretation Comments CO2 (test code = CO2) 24 24-32 [place] 853501-08-21 12:25:00 Test Item Value Reference Range Interpretation Comments Calcium Lvl (test code = Calcium Lvl) 8.5 8.5-10.5 [place] 853501-08-21 12:25:00 Test Item Value Reference Range Interpretation Comments AGAP (test code = AGAP) 11.6 10.0-20.0 [place] 853501-08-21 12:25:00 Test Item Value Reference Range Interpretation Comments eGFR (test code = eGFR) 94 [place] 139731-08-21 12:25:00 Test Item Value Reference Range Interpretation Comments Segs (test code = Segs) 60.4 45.0-75.0 [place] [address]-08-21 12:25:00 Test Item Value Reference Range Interpretation Comments Lymphocytes (test code = Lymphocytes) 28.7 20.0-40.0 [place] [address]-08-21 12:25:00 Test Item Value Reference Range Interpretation Comments Monocytes (test code = Monocytes) 7.2 2.0-12.0 [place] 139731-08-21 12:25:00 Test Item Value Reference Range Interpretation Comments Eosinophils (test code = 2.8 See_Comment [A utomated message] The Eosinophils) system which ge nerated this result tra nsmitted reference range : <=4.0. The reference r arelis was not used to int erpret this result as normal/abnormal . [place] 139731-08-21 12:25:00 Test Item Value Reference Range Interpretation Comments Basophils (test code = 0.9 See_Comment [Aut omated message] The Basophils) system which ge nerated this result tra nsmitted reference range : <=1.0. The reference r arelis was not used to int erpret this result as normal/abnormal . [place] 139731-08-21 12:25:00 Test Item Value Reference Range Interpretation Comments Neutrophils # (test code = Neutrophils 4.0 1.5-8.1 #) [place] 139731-08-21 12:25:00 Test Item Value Reference Range Interpretation Comments Lymphocytes # (test code = Lymphocytes 1.9 1.0-5.5 #) [place] 139731-08-21 12:25:00 Test Item Value Reference Range Interpretation Comments Monocytes # (test code 0.5 See_Comment [Aut omated message] The = Monocytes #) system which generated this result tra nsmitted reference range : <=0.8. The reference r arelis was not used to int erpret this result as normal/abnormal . [place] 139731-08-21 12:25:00 Test Item Value Reference Range Interpretation Comments Eosinophils # (test code 0.2 See_Comment [A utomated message] The = Eosinophils #) system whic h generated this result tra nsmitted reference range : <=0.5. The reference r arelis was not used to int erpret this result as normal/abnormal . [place] 139731-08-21 12:25:00 Test Item Value Reference Range Interpretation Comments Basophils # (test code 0.1 See_Comment [Aut omated message] The = Basophils #) system which generated this result tra nsmitted reference range : <=0.2. The reference r arelis was not used to int erpret this result as normal/abnormal . [place] 139731-08-21 12:25:00 Test Item Value Reference Range Interpretation Comments PTT (test code = PTT) 32.8 s 22.9-35.8 [facility] CentralVhayignRAVISLOGIG1088-26-77 12:25:00 Test Item Value Reference Range Interpretation Comments PT (test code = PT) 17.0 s 12.0-14.7 [facility] CentralPivsvxxIECGBNZSPS9763-98-87 12:25:00 Test Item Value Reference Range Interpretation Comments INR (test code = INR) 1.41 1 0.85-1.17 [facility] CentralLpbhhknNPOMCMINBQ8855-77-25 12:25:00 Test Item Value Reference Range Interpretation Comments WBC (test code = WBC) 6.6 3.7-10.4 [facility] CentralVgrabyyBEAHGFHHFB2848-24-25 12:25:00 Test Item Value Reference Range Interpretation Comments RBC (test code = RBC) 2.58 4.20-5.40 [facility] CentralKluufpgUTRANYJJDM8945-06-80 12:25:00 Test Item Value Reference Range Interpretation Comments Hgb (test code = Hgb) 7.6 12.0-16.0 [facility] CentralUewrgzfGVOEDSOFVR3727-86-15 12:25:00 Test Item Value Reference Range Interpretation Comments Hct (test code = Hct) 22.8 36.0-48.0 [facility] CentralPsexgvzLBVMMRJYVX2796-65-60 12:25:00 Test Item Value Reference Range Interpretation Comments MCV (test code = MCV) 88.2 80.0-98.0 [facility] CentralMssljyoJFKRCYJPAR0348-73-01 12:25:00 Test Item Value Reference Range Interpretation Comments MCH (test code = MCH) 29.6 pg 27.0-31.0 [facility] CentralEjilqcbVXBXJXLLTZ2061-20-69 12:25:00 Test Item Value Reference Range Interpretation Comments MCHC (test code = MCHC) 33.6 32.0-36.0 [facility] CentralEgdrkonSQFJMBOLVW0358-54-92 12:25:00 Test Item Value Reference Range Interpretation Comments RDW (test code = RDW) 15.2 11.5-14.5 [facility] CentralKpxhkxrRKZWWXLADY9471-35-44 12:25:00 Test Item Value Reference Range Interpretation Comments Platelet (test code = Platelet) 421 133-450 [facility] CentralTatljdcYGSBKGIRSO5857-91-11 12:25:00 Test Item Value Reference Range Interpretation Comments MPV (test code = MPV) 8.9 7.4-10.4 [place] 139731-08-21 12:25:0033.6[facility] 12:25:0015.2[facility] KfxtixpSFXWESJVDN2355-43-44 12:25:24540Bggdplxh DvkipznJTCWQDJXRT8705-99-00 12:25:008.9[facility] 12:25:00 Test Item Value Reference Range Interpretation Comments Iron (test code = Iron) 30 [facility]2021-08-21 12:25:00 Test Item Value Reference Range Interpretation Comments TIBC (test code = TIBC) 252 [facility]2021-08-21 12:25:00 Test Item Value Reference Range Interpretation Comments % Satur Fe (test code = % Satur Fe) 12 [facility]2021-08-21 12:25:00 Test Item Value Reference Range Interpretation Comments Glucose Lvl (test code = Glucose Lvl) 99 70-99 [facility]2021-08-21 12:25:00 Test Item Value Reference Range Interpretation Comments BUN (test code = BUN) 7 7-22 [place] 853501-08-21 12:25:00 Test Item Value Reference Range Interpretation Comments Creatinine Lvl (test code = Creatinine 0.60 0.50-1.40 Lvl) [place] 853501-08-21 12:25:00 Test Item Value Reference Range Interpretation Comments Sodium Lvl (test code = Sodium Lvl) 148 135-145 [place] 853501-08-21 12:25:00 Test Item Value Reference Range Interpretation Comments Potassium Lvl (test code = Potassium 3.6 3.5-5.1 Lvl) [place] 853501-08-21 12:25:00 Test Item Value Reference Range Interpretation Comments Chloride Lvl (test code = Chloride Lvl) 116 95-109 [place] 853501-08-21 12:25:00 Test Item Value Reference Range Interpretation Comments CO2 (test code = CO2) 24 24-32 [place] 853501-08-21 12:25:00 Test Item Value Reference Range Interpretation Comments Calcium Lvl (test code = Calcium Lvl) 8.5 8.5-10.5 [place] 853501-08-21 12:25:00 Test Item Value Reference Range Interpretation Comments AGAP (test code = AGAP) 11.6 10.0-20.0 [place] 853501-08-21 12:25:00 Test Item Value Reference Range Interpretation Comments eGFR (test code = eGFR) 94 [place] 139731-08-21 12:25:00 Test Item Value Reference Range Interpretation Comments Segs (test code = Segs) 60.4 45.0-75.0 [place] 139731-08-21 12:25:00 Test Item Value Reference Range Interpretation Comments Lymphocytes (test code = Lymphocytes) 28.7 20.0-40.0 [place] 139731-08-21 12:25:00 Test Item Value Reference Range Interpretation Comments Monocytes (test code = Monocytes) 7.2 2.0-12.0 [place] 139731-08-21 12:25:00 Test Item Value Reference Range Interpretation Comments Eosinophils (test code = 2.8 See_Comment [A utomated message] The Eosinophils) system which ge nerated this result tra nsmitted reference range : <=4.0. The reference r arelis was not used to int erpret this result as normal/abnormal . [place] 139731-08-21 12:25:00 Test Item Value Reference Range Interpretation Comments Basophils (test code = 0.9 See_Comment [Aut omated message] The Basophils) system which ge nerated this result tra nsmitted reference range : <=1.0. The reference r arelis was not used to int erpret this result as normal/abnormal . [place] 139731-08-21 12:25:00 Test Item Value Reference Range Interpretation Comments Neutrophils # (test code = Neutrophils 4.0 1.5-8.1 #) [place] 139731-08-21 12:25:00 Test Item Value Reference Range Interpretation Comments Lymphocytes # (test code = Lymphocytes 1.9 1.0-5.5 #) [place] 139731-08-21 12:25:00 Test Item Value Reference Range Interpretation Comments Monocytes # (test code 0.5 See_Comment [Aut omated message] The = Monocytes #) system which generated this result tra nsmitted reference range : <=0.8. The reference r arelis was not used to int erpret this result as normal/abnormal . [facility] CentralZodxqnfXYXRSEGRNX4963-49-29 12:25:00 Test Item Value Reference Range Interpretation Comments Eosinophils # (test code 0.2 See_Comment [A utomated message] The = Eosinophils #) system whic h generated this result tra nsmitted reference range : <=0.5. The reference r arelis was not used to int erpret this result as normal/abnormal . [facility] CentralGnisdnwMWXVCPALAS7988-25-15 12:25:00 Test Item Value Reference Range Interpretation Comments Basophils # (test code 0.1 See_Comment [Aut omated message] The = Basophils #) system which generated this result tra nsmitted reference range : <=0.2. The reference r arelis was not used to int erpret this result as normal/abnormal . [place] 139731-08-21 12:25:00 Test Item Value Reference Range Interpretation Comments PTT (test code = PTT) 32.8 s 22.9-35.8 [place] 139731-08-21 12:25:00 Test Item Value Reference Range Interpretation Comments PT (test code = PT) 17.0 s 12.0-14.7 [place] 139731-08-21 12:25:00 Test Item Value Reference Range Interpretation Comments INR (test code = INR) 1.41 1 0.85-1.17 [place] 139731-08-21 12:25:00 Test Item Value Reference Range Interpretation Comments WBC (test code = WBC) 6.6 3.7-10.4 [place] 139731-08-21 12:25:00 Test Item Value Reference Range Interpretation Comments RBC (test code = RBC) 2.58 4.20-5.40 [place] 139731-08-21 12:25:00 Test Item Value Reference Range Interpretation Comments Hgb (test code = Hgb) 7.6 12.0-16.0 [place] 139731-08-21 12:25:00 Test Item Value Reference Range Interpretation Comments Hct (test code = Hct) 22.8 36.0-48.0 [place] 139731-08-21 12:25:00 Test Item Value Reference Range Interpretation Comments MCV (test code = MCV) 88.2 80.0-98.0 [place] 139731-08-21 12:25:00 Test Item Value Reference Range Interpretation Comments MCH (test code = MCH) 29.6 pg 27.0-31.0 [place] 139731-08-21 12:25:00 Test Item Value Reference Range Interpretation Comments MCHC (test code = MCHC) 33.6 32.0-36.0 [place] 139731-08-21 12:25:00 Test Item Value Reference Range Interpretation Comments RDW (test code = RDW) 15.2 11.5-14.5 [place] 1397[address]-08-21 12:25:00 Test Item Value Reference Range Interpretation Comments Platelet (test code = Platelet) 421 133-450 [facility] CentralFhiazehREVLZSJWJL5474-77-03 12:25:00 Test Item Value Reference Range Interpretation Comments MPV (test code = MPV) 8.9 7.4-10.4 [facility]2021-08-21 12:25:00 Test Item Value Reference Range Interpretation Comments Iron (test code = Iron) 30 [facility]2021-08-21 12:25:00 Test Item Value Reference Range Interpretation Comments TIBC (test code = TIBC) 252 [facility]2021-08-21 12:25:00 Test Item Value Reference Range Interpretation Comments % Satur Fe (test code = % Satur Fe) 12 [facility]2021-08-21 12:25:00 Test Item Value Reference Range Interpretation Comments Glucose Lvl (test code = Glucose Lvl) 99 70-99 [facility]2021-08-21 12:25:00 Test Item Value Reference Range Interpretation Comments BUN (test code = BUN) 7 7-22 [place] 853501-08-21 12:25:00 Test Item Value Reference Range Interpretation Comments Creatinine Lvl (test code = Creatinine 0.60 0.50-1.40 Lvl) [facility]2021-08-21 12:25:00 Test Item Value Reference Range Interpretation Comments Sodium Lvl (test code = Sodium Lvl) 148 135-145 [place] 853501-08-21 12:25:00 Test Item Value Reference Range Interpretation Comments Potassium Lvl (test code = Potassium 3.6 3.5-5.1 Lvl) [place] 853501-08-21 12:25:00 Test Item Value Reference Range Interpretation Comments Chloride Lvl (test code = Chloride Lvl) 116 95-109 [place] 853501-08-21 12:25:00 Test Item Value Reference Range Interpretation Comments CO2 (test code = CO2) 24 24-32 [place] 853501-08-21 12:25:00 Test Item Value Reference Range Interpretation Comments Calcium Lvl (test code = Calcium Lvl) 8.5 8.5-10.5 [place] 853501-08-21 12:25:00 Test Item Value Reference Range Interpretation Comments AGAP (test code = AGAP) 11.6 10.0-20.0 [place] 853501-08-21 12:25:00 Test Item Value Reference Range Interpretation Comments eGFR (test code = eGFR) 94 [place] 139731-08-21 12:25:00 Test Item Value Reference Range Interpretation Comments Segs (test code = Segs) 60.4 45.0-75.0 [place] 139731-08-21 12:25:00 Test Item Value Reference Range Interpretation Comments Lymphocytes (test code = Lymphocytes) 28.7 20.0-40.0 [place] [address]-08-21 12:25:00 Test Item Value Reference Range Interpretation Comments Monocytes (test code = Monocytes) 7.2 2.0-12.0 [place] 139731-08-21 12:25:00 Test Item Value Reference Range Interpretation Comments Eosinophils (test code = 2.8 See_Comment [A utomated message] The Eosinophils) system which ge nerated this result tra nsmitted reference range : <=4.0. The reference r arelis was not used to int erpret this result as normal/abnormal . [place] 139731-08-21 12:25:00 Test Item Value Reference Range Interpretation Comments Basophils (test code = 0.9 See_Comment [Aut omated message] The Basophils) system which ge nerated this result tra nsmitted reference range : <=1.0. The reference r arelis was not used to int erpret this result as normal/abnormal . [place] 139731-08-21 12:25:00 Test Item Value Reference Range Interpretation Comments Neutrophils # (test code = Neutrophils 4.0 1.5-8.1 #) [facility] CentralPuwlrneDFGUZILCGC9512-23-77 12:25:00 Test Item Value Reference Range Interpretation Comments Lymphocytes # (test code = Lymphocytes 1.9 1.0-5.5 #) [place] 1397[address]-08-21 12:25:00 Test Item Value Reference Range Interpretation Comments Monocytes # (test code 0.5 See_Comment [Aut omated message] The = Monocytes #) system which generated this result tra nsmitted reference range : <=0.8. The reference r arelis was not used to int erpret this result as normal/abnormal . [place] 139731-08-21 12:25:00 Test Item Value Reference Range Interpretation Comments Eosinophils # (test code 0.2 See_Comment [A utomated message] The = Eosinophils #) system whic h generated this result tra nsmitted reference range : <=0.5. The reference r arelis was not used to int erpret this result as normal/abnormal . [facility] CentralPiszdozXZMAUDGUUP7363-05-48 12:25:00 Test Item Value Reference Range Interpretation Comments Basophils # (test code 0.1 See_Comment [Aut omated message] The = Basophils #) system which generated this result tra nsmitted reference range : <=0.2. The reference r arelis was not used to int erpret this result as normal/abnormal . [place] 139731-08-21 12:25:00 Test Item Value Reference Range Interpretation Comments PTT (test code = PTT) 32.8 s 22.9-35.8 [place] 139731-08-21 12:25:00 Test Item Value Reference Range Interpretation Comments PT (test code = PT) 17.0 s 12.0-14.7 [place] 139731-08-21 12:25:00 Test Item Value Reference Range Interpretation Comments INR (test code = INR) 1.41 1 0.85-1.17 [place] 139731-08-21 12:25:00 Test Item Value Reference Range Interpretation Comments WBC (test code = WBC) 6.6 3.7-10.4 [place] 139731-08-21 12:25:00 Test Item Value Reference Range Interpretation Comments RBC (test code = RBC) 2.58 4.20-5.40 [place] 139731-08-21 12:25:00 Test Item Value Reference Range Interpretation Comments Hgb (test code = Hgb) 7.6 12.0-16.0 [place] 139731-08-21 12:25:00 Test Item Value Reference Range Interpretation Comments Hct (test code = Hct) 22.8 36.0-48.0 [place] 139731-08-21 12:25:00 Test Item Value Reference Range Interpretation Comments MCV (test code = MCV) 88.2 80.0-98.0 [place] 139731-08-21 12:25:00 Test Item Value Reference Range Interpretation Comments MCH (test code = MCH) 29.6 pg 27.0-31.0 [place] 139731-08-21 12:25:00 Test Item Value Reference Range Interpretation Comments MCHC (test code = MCHC) 33.6 32.0-36.0 [place] 139731-08-21 12:25:00 Test Item Value Reference Range Interpretation Comments RDW (test code = RDW) 15.2 11.5-14.5 [facility] CentralYldgrjnXTNVAYZRHS9330-00-21 12:25:00 Test Item Value Reference Range Interpretation Comments Platelet (test code = Platelet) 421 133-450 [facility] CentralTtbwepkVHZIRPQWDQ0423-31-73 12:25:00 Test Item Value Reference Range Interpretation Comments MPV (test code = MPV) 8.9 7.4-10.4 [facility]2021-08-21 12:25:00 Test Item Value Reference Range Interpretation Comments Iron (test code = Iron) 30 [facility]2021-08-21 12:25:00 Test Item Value Reference Range Interpretation Comments TIBC (test code = TIBC) 252 [facility]2021-08-21 12:25:00 Test Item Value Reference Range Interpretation Comments % Satur Fe (test code = % Satur Fe) 12 [facility]2021-08-21 12:25:00 Test Item Value Reference Range Interpretation Comments Glucose Lvl (test code = Glucose Lvl) 99 70-99 [facility]2021-08-21 12:25:00 Test Item Value Reference Range Interpretation Comments BUN (test code = BUN) 7 7-22 [place] 853501-08-21 12:25:00 Test Item Value Reference Range Interpretation Comments Creatinine Lvl (test code = Creatinine 0.60 0.50-1.40 Lvl) [place] 853501-08-21 12:25:00 Test Item Value Reference Range Interpretation Comments Sodium Lvl (test code = Sodium Lvl) 148 135-145 [place] 853501-08-21 12:25:00 Test Item Value Reference Range Interpretation Comments Potassium Lvl (test code = Potassium 3.6 3.5-5.1 Lvl) [place] 853501-08-21 12:25:00 Test Item Value Reference Range Interpretation Comments Chloride Lvl (test code = Chloride Lvl) 116 95-109 [place] 853501-08-21 12:25:00 Test Item Value Reference Range Interpretation Comments CO2 (test code = CO2) 24 24-32 [place] 853501-08-21 12:25:00 Test Item Value Reference Range Interpretation Comments Calcium Lvl (test code = Calcium Lvl) 8.5 8.5-10.5 [place] 853501-08-21 12:25:00 Test Item Value Reference Range Interpretation Comments AGAP (test code = AGAP) 11.6 10.0-20.0 [place] 853501-08-21 12:25:00 Test Item Value Reference Range Interpretation Comments eGFR (test code = eGFR) 94 [place] 139731-08-21 12:25:00 Test Item Value Reference Range Interpretation Comments Segs (test code = Segs) 60.4 45.0-75.0 [place] 139731-08-21 12:25:00 Test Item Value Reference Range Interpretation Comments Lymphocytes (test code = Lymphocytes) 28.7 20.0-40.0 [place] [address]-08-21 12:25:00 Test Item Value Reference Range Interpretation Comments Monocytes (test code = Monocytes) 7.2 2.0-12.0 [place] [address]-08-21 12:25:00 Test Item Value Reference Range Interpretation Comments Eosinophils (test code = 2.8 See_Comment [A utomated message] The Eosinophils) system which ge nerated this result tra nsmitted reference range : <=4.0. The reference r arelis was not used to int erpret this result as normal/abnormal . [facility] CentralWiqjrxhZUCRFZYRWQ8121-54-03 12:25:00 Test Item Value Reference Range Interpretation Comments Basophils (test code = 0.9 See_Comment [Aut omated message] The Basophils) system which ge nerated this result tra nsmitted reference range : <=1.0. The reference r arelis was not used to int erpret this result as normal/abnormal . [place] 139731-08-21 12:25:00 Test Item Value Reference Range Interpretation Comments Neutrophils # (test code = Neutrophils 4.0 1.5-8.1 #) [place] 139731-08-21 12:25:00 Test Item Value Reference Range Interpretation Comments Lymphocytes # (test code = Lymphocytes 1.9 1.0-5.5 #) [facility] CentralMkigjghKCNBUZWHCY1442-66-72 12:25:00 Test Item Value Reference Range Interpretation Comments Monocytes # (test code 0.5 See_Comment [Aut omated message] The = Monocytes #) system which generated this result tra nsmitted reference range : <=0.8. The reference r arelis was not used to int erpret this result as normal/abnormal . [facility] CentralDkdyryyUZIBZAWYHO0920-83-91 12:25:00 Test Item Value Reference Range Interpretation Comments Eosinophils # (test code 0.2 See_Comment [A utomated message] The = Eosinophils #) system whic h generated this result tra nsmitted reference range : <=0.5. The reference r arelis was not used to int erpret this result as normal/abnormal . [facility] CentralCayiekzDYFMHHPXRN9457-63-81 12:25:00 Test Item Value Reference Range Interpretation Comments Basophils # (test code 0.1 See_Comment [Aut omated message] The = Basophils #) system which generated this result tra nsmitted reference range : <=0.2. The reference r arelis was not used to int erpret this result as normal/abnormal . [place] 139731-08-21 12:25:00 Test Item Value Reference Range Interpretation Comments PTT (test code = PTT) 32.8 s 22.9-35.8 [place] 139731-08-21 12:25:00 Test Item Value Reference Range Interpretation Comments PT (test code = PT) 17.0 s 12.0-14.7 [facility] CentralHldblixIRRHQCXTHD7086-61-13 12:25:00 Test Item Value Reference Range Interpretation Comments INR (test code = INR) 1.41 1 0.85-1.17 [facility] CentralWkznzvrOACTMWKNLB2847-65-42 12:25:00 Test Item Value Reference Range Interpretation Comments WBC (test code = WBC) 6.6 3.7-10.4 [facility] CentralVouhwipQCHOYRCOEA3066-48-65 12:25:00 Test Item Value Reference Range Interpretation Comments RBC (test code = RBC) 2.58 4.20-5.40 [facility] CentralMaicimmPXWRBZGJNK5680-06-60 12:25:00 Test Item Value Reference Range Interpretation Comments Hgb (test code = Hgb) 7.6 12.0-16.0 [facility] CentralUqapxozXQWZYXCGCJ3530-27-90 12:25:00 Test Item Value Reference Range Interpretation Comments Hct (test code = Hct) 22.8 36.0-48.0 [facility] CentralCgouyzbVAFJWHNWSO0626-91-38 12:25:00 Test Item Value Reference Range Interpretation Comments MCV (test code = MCV) 88.2 80.0-98.0 [facility] CentralLrkitzuRSCNKQCEBS7837-70-09 12:25:00 Test Item Value Reference Range Interpretation Comments MCH (test code = MCH) 29.6 pg 27.0-31.0 [facility] CentralWpifubfXULVEQQHSN2408-69-73 12:25:00 Test Item Value Reference Range Interpretation Comments MCHC (test code = MCHC) 33.6 32.0-36.0 [facility] CentralHaogtjeTYUTBWNFVM1335-45-31 12:25:00 Test Item Value Reference Range Interpretation Comments RDW (test code = RDW) 15.2 11.5-14.5 [facility] CentralFyjnrhxSPKXQNRWIP2614-24-33 12:25:00 Test Item Value Reference Range Interpretation Comments Platelet (test code = Platelet) 421 133-450 [facility] CentralOqouqgmUNIYWSPQYN2577-06-83 12:25:00 Test Item Value Reference Range Interpretation Comments MPV (test code = MPV) 8.9 7.4-10.4 [facility]2021-08-21 12:25:00 Test Item Value Reference Range Interpretation Comments Iron (test code = Iron) 30 [facility]2021-08-21 12:25:00 Test Item Value Reference Range Interpretation Comments TIBC (test code = TIBC) 252 [facility]2021-08-21 12:25:00 Test Item Value Reference Range Interpretation Comments % Satur Fe (test code = % Satur Fe) 12 [place] 853501-08-21 12:25:00 Test Item Value Reference Range Interpretation Comments Glucose Lvl (test code = Glucose Lvl) 99 70-99 [place] 853501-08-21 12:25:00 Test Item Value Reference Range Interpretation Comments BUN (test code = BUN) 7 7-22 [place] 853501-08-21 12:25:00 Test Item Value Reference Range Interpretation Comments Creatinine Lvl (test code = Creatinine 0.60 0.50-1.40 Lvl) [place] 853501-08-21 12:25:00 Test Item Value Reference Range Interpretation Comments Sodium Lvl (test code = Sodium Lvl) 148 135-145 [place] 853501-08-21 12:25:00 Test Item Value Reference Range Interpretation Comments Potassium Lvl (test code = Potassium 3.6 3.5-5.1 Lvl) [place] 853501-08-21 12:25:00 Test Item Value Reference Range Interpretation Comments Chloride Lvl (test code = Chloride Lvl) 116 95-109 [place] 853501-08-21 12:25:00 Test Item Value Reference Range Interpretation Comments CO2 (test code = CO2) 24 24-32 [place] 853501-08-21 12:25:00 Test Item Value Reference Range Interpretation Comments Calcium Lvl (test code = Calcium Lvl) 8.5 8.5-10.5 [place] 853501-08-21 12:25:00 Test Item Value Reference Range Interpretation Comments AGAP (test code = AGAP) 11.6 10.0-20.0 [place] 853501-08-21 12:25:00 Test Item Value Reference Range Interpretation Comments eGFR (test code = eGFR) 94 [place] 139731-08-21 12:25:00 Test Item Value Reference Range Interpretation Comments Segs (test code = Segs) 60.4 45.0-75.0 [place] 139731-08-21 12:25:00 Test Item Value Reference Range Interpretation Comments Lymphocytes (test code = Lymphocytes) 28.7 20.0-40.0 [place] 139731-08-21 12:25:00 Test Item Value Reference Range Interpretation Comments Monocytes (test code = Monocytes) 7.2 2.0-12.0 [place] 139731-08-21 12:25:00 Test Item Value Reference Range Interpretation Comments Eosinophils (test code = 2.8 See_Comment [A utomated message] The Eosinophils) system which ge nerated this result tra nsmitted reference range : <=4.0. The reference r arelis was not used to int erpret this result as normal/abnormal . [place] 139731-08-21 12:25:00 Test Item Value Reference Range Interpretation Comments Basophils (test code = 0.9 See_Comment [Aut omated message] The Basophils) system which ge nerated this result tra nsmitted reference range : <=1.0. The reference r arelis was not used to int erpret this result as normal/abnormal . [facility] CentralGeggemmVDKTFECALJ5791-73-39 12:25:00 Test Item Value Reference Range Interpretation Comments Neutrophils # (test code = Neutrophils 4.0 1.5-8.1 #) [facility] CentralPrmqdytSWLUVDPING5011-91-35 12:25:00 Test Item Value Reference Range Interpretation Comments Lymphocytes # (test code = Lymphocytes 1.9 1.0-5.5 #) [place] 139731-08-21 12:25:00 Test Item Value Reference Range Interpretation Comments Monocytes # (test code 0.5 See_Comment [Aut omated message] The = Monocytes #) system which generated this result tra nsmitted reference range : <=0.8. The reference r arelis was not used to int erpret this result as normal/abnormal . [place] 139731-08-21 12:25:00 Test Item Value Reference Range Interpretation Comments Eosinophils # (test code 0.2 See_Comment [A utomated message] The = Eosinophils #) system whic h generated this result tra nsmitted reference range : <=0.5. The reference r arelis was not used to int erpret this result as normal/abnormal . [place] 1397[address]-08-21 12:25:00 Test Item Value Reference Range Interpretation Comments Basophils # (test code 0.1 See_Comment [Aut omated message] The = Basophils #) system which generated this result tra nsmitted reference range : <=0.2. The reference r arelis was not used to int erpret this result as normal/abnormal . [facility] CentralHndibwzTMEURGXMNC5575-60-89 12:25:00 Test Item Value Reference Range Interpretation Comments PTT (test code = PTT) 32.8 s 22.9-35.8 [place] 1397[address]-08-21 12:25:00 Test Item Value Reference Range Interpretation Comments PT (test code = PT) 17.0 s 12.0-14.7 [place] 139731-08-21 12:25:00 Test Item Value Reference Range Interpretation Comments INR (test code = INR) 1.41 1 0.85-1.17 [facility] CentralFymqavwHBYQEEDNYM6910-90-06 12:25:00 Test Item Value Reference Range Interpretation Comments WBC (test code = WBC) 6.6 3.7-10.4 [facility] CentralAuyfavnMIQUAJIGCD4994-65-88 12:25:00 Test Item Value Reference Range Interpretation Comments RBC (test code = RBC) 2.58 4.20-5.40 [facility] CentralWjyexjsGCQMHGMCDZ6729-69-17 12:25:00 Test Item Value Reference Range Interpretation Comments Hgb (test code = Hgb) 7.6 12.0-16.0 [facility] CentralRmlgnlmEYDZGZCAUJ6407-94-94 12:25:00 Test Item Value Reference Range Interpretation Comments Hct (test code = Hct) 22.8 36.0-48.0 [place] 1397[address]-08-21 12:25:00 Test Item Value Reference Range Interpretation Comments MCV (test code = MCV) 88.2 80.0-98.0 [facility] CentralDaxjyfhKBVNXMULSZ3607-44-04 12:25:00 Test Item Value Reference Range Interpretation Comments MCH (test code = MCH) 29.6 pg 27.0-31.0 [facility] CentralSiwgthfEFVPRJQGLP5079-39-33 12:25:00 Test Item Value Reference Range Interpretation Comments MCHC (test code = MCHC) 33.6 32.0-36.0 [facility] CentralAvwgoggVYAVIZELZK6323-01-01 12:25:00 Test Item Value Reference Range Interpretation Comments RDW (test code = RDW) 15.2 11.5-14.5 [place] 1397[address]-08-21 12:25:00 Test Item Value Reference Range Interpretation Comments Platelet (test code = Platelet) 421 133-450 [place] 139731-08-21 12:25:00 Test Item Value Reference Range Interpretation Comments MPV (test code = MPV) 8.9 7.4-10.4 [place] 693571-08-21 12:25:00 Test Item Value Reference Range Interpretation Comments Iron (test code = Iron) 30 [place] 693571-08-21 12:25:00 Test Item Value Reference Range Interpretation Comments TIBC (test code = TIBC) 252 [place] 693571-08-21 12:25:00 Test Item Value Reference Range Interpretation Comments % Satur Fe (test code = % Satur Fe) 12 [place] [address]3501-08-21 12:25:00 Test Item Value Reference Range Interpretation Comments Glucose Lvl (test code = Glucose Lvl) 99 70-99 [place] 853501-08-21 12:25:00 Test Item Value Reference Range Interpretation Comments BUN (test code = BUN) 7 7-22 [place] [address]3501-08-21 12:25:00 Test Item Value Reference Range Interpretation Comments Creatinine Lvl (test code = Creatinine 0.60 0.50-1.40 Lvl) [place] [address]3501-08-21 12:25:00 Test Item Value Reference Range Interpretation Comments Sodium Lvl (test code = Sodium Lvl) 148 135-145 [place] [address]3501-08-21 12:25:00 Test Item Value Reference Range Interpretation Comments Potassium Lvl (test code = Potassium 3.6 3.5-5.1 Lvl) [place] [address]3501-08-21 12:25:00 Test Item Value Reference Range Interpretation Comments Chloride Lvl (test code = Chloride Lvl) 116 95-109 [place] 853501-08-21 12:25:00 Test Item Value Reference Range Interpretation Comments CO2 (test code = CO2) 24 24-32 [place] [address]3501-08-21 12:25:00 Test Item Value Reference Range Interpretation Comments Calcium Lvl (test code = Calcium Lvl) 8.5 8.5-10.5 [place] [address]3501-08-21 12:25:00 Test Item Value Reference Range Interpretation Comments AGAP (test code = AGAP) 11.6 10.0-20.0 [place] [address]3501-08-21 12:25:00 Test Item Value Reference Range Interpretation Comments eGFR (test code = eGFR) 94 [place] 139731-08-21 12:25:00 Test Item Value Reference Range Interpretation Comments Segs (test code = Segs) 60.4 45.0-75.0 [place] 139731-08-21 12:25:00 Test Item Value Reference Range Interpretation Comments Lymphocytes (test code = Lymphocytes) 28.7 20.0-40.0 [place] [address]-08-21 12:25:00 Test Item Value Reference Range Interpretation Comments Monocytes (test code = Monocytes) 7.2 2.0-12.0 [place] 139731-08-21 12:25:00 Test Item Value Reference Range Interpretation Comments Eosinophils (test code = 2.8 See_Comment [A utomated message] The Eosinophils) system which ge nerated this result tra nsmitted reference range : <=4.0. The reference r arelis was not used to int erpret this result as normal/abnormal . [place] 139731-08-21 12:25:00 Test Item Value Reference Range Interpretation Comments Basophils (test code = 0.9 See_Comment [Aut omated message] The Basophils) system which ge nerated this result tra nsmitted reference range : <=1.0. The reference r arelis was not used to int erpret this result as normal/abnormal . [place] 1397[address]-08-21 12:25:00 Test Item Value Reference Range Interpretation Comments Neutrophils # (test code = Neutrophils 4.0 1.5-8.1 #) [place] 1397[address]-08-21 12:25:00 Test Item Value Reference Range Interpretation Comments Lymphocytes # (test code = Lymphocytes 1.9 1.0-5.5 #) [place] 1397[address]-08-21 12:25:00 Test Item Value Reference Range Interpretation Comments Monocytes # (test code 0.5 See_Comment [Aut omated message] The = Monocytes #) system which generated this result tra nsmitted reference range : <=0.8. The reference r arelis was not used to int erpret this result as normal/abnormal . [place] 1397[address]-08-21 12:25:00 Test Item Value Reference Range Interpretation Comments Eosinophils # (test code 0.2 See_Comment [A utomated message] The = Eosinophils #) system whic h generated this result tra nsmitted reference range : <=0.5. The reference r arelis was not used to int erpret this result as normal/abnormal . [place] 139731-08-21 12:25:00 Test Item Value Reference Range Interpretation Comments Basophils # (test code 0.1 See_Comment [Aut omated message] The = Basophils #) system which generated this result tra nsmitted reference range : <=0.2. The reference r arelis was not used to int erpret this result as normal/abnormal . [place] 139731-08-21 12:25:00 Test Item Value Reference Range Interpretation Comments PTT (test code = PTT) 32.8 s 22.9-35.8 [place] 139731-08-21 12:25:00 Test Item Value Reference Range Interpretation Comments PT (test code = PT) 17.0 s 12.0-14.7 [place] 139731-08-21 12:25:00 Test Item Value Reference Range Interpretation Comments INR (test code = INR) 1.41 1 0.85-1.17 [place] 1397[address]-08-21 12:25:00 Test Item Value Reference Range Interpretation Comments WBC (test code = WBC) 6.6 3.7-10.4 [place] 1397[address]-08-21 12:25:00 Test Item Value Reference Range Interpretation Comments RBC (test code = RBC) 2.58 4.20-5.40 [place] 1397[address]-08-21 12:25:00 Test Item Value Reference Range Interpretation Comments Hgb (test code = Hgb) 7.6 12.0-16.0 [place] [address]-08-21 12:25:00 Test Item Value Reference Range Interpretation Comments Hct (test code = Hct) 22.8 36.0-48.0 [place] 1397[address]-08-21 12:25:00 Test Item Value Reference Range Interpretation Comments MCV (test code = MCV) 88.2 80.0-98.0 [place] 139731-08-21 12:25:00 Test Item Value Reference Range Interpretation Comments MCH (test code = MCH) 29.6 pg 27.0-31.0 [place] 139731-08-21 12:25:00 Test Item Value Reference Range Interpretation Comments MCHC (test code = MCHC) 33.6 32.0-36.0 [place] 1397[address]-08-21 12:25:00 Test Item Value Reference Range Interpretation Comments RDW (test code = RDW) 15.2 11.5-14.5 [place] 1397[address]-08-21 12:25:00 Test Item Value Reference Range Interpretation Comments Platelet (test code = Platelet) 421 133-450 [place] 139731-08-21 12:25:00 Test Item Value Reference Range Interpretation Comments MPV (test code = MPV) 8.9 7.4-10.4 [facility]2021-08-21 12:25:00 Test Item Value Reference Range Interpretation Comments Iron (test code = Iron) 30 [facility]2021-08-21 12:25:00 Test Item Value Reference Range Interpretation Comments TIBC (test code = TIBC) 252 [facility]2021-08-21 12:25:00 Test Item Value Reference Range Interpretation Comments % Satur Fe (test code = % Satur Fe) 12 [facility]2021-08-21 12:25:00 Test Item Value Reference Range Interpretation Comments Glucose Lvl (test code = Glucose Lvl) 99 70-99 [facility]2021-08-21 12:25:00 Test Item Value Reference Range Interpretation Comments BUN (test code = BUN) 7 7-22 [place] 853501-08-21 12:25:00 Test Item Value Reference Range Interpretation Comments Creatinine Lvl (test code = Creatinine 0.60 0.50-1.40 Lvl) [place] [address]3501-08-21 12:25:00 Test Item Value Reference Range Interpretation Comments Sodium Lvl (test code = Sodium Lvl) 148 135-145 [place] 853501-08-21 12:25:00 Test Item Value Reference Range Interpretation Comments Potassium Lvl (test code = Potassium 3.6 3.5-5.1 Lvl) [place] [address]3501-08-21 12:25:00 Test Item Value Reference Range Interpretation Comments Chloride Lvl (test code = Chloride Lvl) 116 95-109 [place] 853501-08-21 12:25:00 Test Item Value Reference Range Interpretation Comments CO2 (test code = CO2) 24 24-32 [place] [address]3501-08-21 12:25:00 Test Item Value Reference Range Interpretation Comments Calcium Lvl (test code = Calcium Lvl) 8.5 8.5-10.5 [place] [address]3501-08-21 12:25:00 Test Item Value Reference Range Interpretation Comments AGAP (test code = AGAP) 11.6 10.0-20.0 [place] 853501-08-21 12:25:00 Test Item Value Reference Range Interpretation Comments eGFR (test code = eGFR) 94 [place] 139731-08-21 12:25:00 Test Item Value Reference Range Interpretation Comments Segs (test code = Segs) 60.4 45.0-75.0 [place] 139731-08-21 12:25:00 Test Item Value Reference Range Interpretation Comments Lymphocytes (test code = Lymphocytes) 28.7 20.0-40.0 [place] [address]-08-21 12:25:00 Test Item Value Reference Range Interpretation Comments Monocytes (test code = Monocytes) 7.2 2.0-12.0 [place] [address]-08-21 12:25:00 Test Item Value Reference Range Interpretation Comments Eosinophils (test code = 2.8 See_Comment [A utomated message] The Eosinophils) system which ge nerated this result tra nsmitted reference range : <=4.0. The reference r arelis was not used to int erpret this result as normal/abnormal . [place] [address]-08-21 12:25:00 Test Item Value Reference Range Interpretation Comments Basophils (test code = 0.9 See_Comment [Aut omated message] The Basophils) system which ge nerated this result tra nsmitted reference range : <=1.0. The reference r arelis was not used to int erpret this result as normal/abnormal . [facility] CentralFzvszupSOCWVFVOLV0866-26-15 12:25:00 Test Item Value Reference Range Interpretation Comments Neutrophils # (test code = Neutrophils 4.0 1.5-8.1 #) [facility] CentralFcyyorhTADHKIXAOO1741-76-77 12:25:00 Test Item Value Reference Range Interpretation Comments Lymphocytes # (test code = Lymphocytes 1.9 1.0-5.5 #) [place] 139731-08-21 12:25:00 Test Item Value Reference Range Interpretation Comments Monocytes # (test code 0.5 See_Comment [Aut omated message] The = Monocytes #) system which generated this result tra nsmitted reference range : <=0.8. The reference r arelis was not used to int erpret this result as normal/abnormal . [facility] CentralRihvrnrEKTMPRXLED8402-04-93 12:25:00 Test Item Value Reference Range Interpretation Comments Eosinophils # (test code 0.2 See_Comment [A utomated message] The = Eosinophils #) system whic h generated this result tra nsmitted reference range : <=0.5. The reference r arelis was not used to int erpret this result as normal/abnormal . [facility] CentralVslktamINOKKBOCLS9454-29-10 12:25:00 Test Item Value Reference Range Interpretation Comments Basophils # (test code 0.1 See_Comment [Aut omated message] The = Basophils #) system which generated this result tra nsmitted reference range : <=0.2. The reference r arelis was not used to int erpret this result as normal/abnormal . [facility] CentralBaqbkneFCOFBKFWWS2301-24-68 12:25:00 Test Item Value Reference Range Interpretation Comments PTT (test code = PTT) 32.8 s 22.9-35.8 [place] 139731-08-21 12:25:00 Test Item Value Reference Range Interpretation Comments PT (test code = PT) 17.0 s 12.0-14.7 [place] 139731-08-21 12:25:00 Test Item Value Reference Range Interpretation Comments INR (test code = INR) 1.41 1 0.85-1.17 [facility]2021-08-21 12:25:00 Test Item Value Reference Range Interpretation Comments Iron (test code = Iron) 30 [facility]2021-08-21 12:25:00 Test Item Value Reference Range Interpretation Comments TIBC (test code = TIBC) 252 [facility] CentralNmjsddxUYAPFKCAZO0545-62-42 12:25:00 Test Item Value Reference Range Interpretation Comments WBC (test code = WBC) 6.6 3.7-10.4 [facility]2021-08-21 12:25:00 Test Item Value Reference Range Interpretation Comments % Satur Fe (test code = % Satur Fe) 12 [facility]2021-08-21 12:25:00 Test Item Value Reference Range Interpretation Comments Glucose Lvl (test code = Glucose Lvl) 99 70-99 [facility]2021-08-21 12:25:00 Test Item Value Reference Range Interpretation Comments BUN (test code = BUN) 7 7-22 [facility]2021-08-21 12:25:00 Test Item Value Reference Range Interpretation Comments Creatinine Lvl (test code = Creatinine 0.60 0.50-1.40 Lvl) [facility]2021-08-21 12:25:00 Test Item Value Reference Range Interpretation Comments Sodium Lvl (test code = Sodium Lvl) 148 135-145 [place] 853501-08-21 12:25:00 Test Item Value Reference Range Interpretation Comments Potassium Lvl (test code = Potassium 3.6 3.5-5.1 Lvl) [facility]2021-08-21 12:25:00 Test Item Value Reference Range Interpretation Comments Chloride Lvl (test code = Chloride Lvl) 116 95-109 [place] 853501-08-21 12:25:00 Test Item Value Reference Range Interpretation Comments CO2 (test code = CO2) 24 24-32 [place] [address]3501-08-21 12:25:00 Test Item Value Reference Range Interpretation Comments Calcium Lvl (test code = Calcium Lvl) 8.5 8.5-10.5 [place] 853501-08-21 12:25:00 Test Item Value Reference Range Interpretation Comments AGAP (test code = AGAP) 11.6 10.0-20.0 [place] 139731-08-21 12:25:00 Test Item Value Reference Range Interpretation Comments RBC (test code = RBC) 2.58 4.20-5.40 [place] 853501-08-21 12:25:00 Test Item Value Reference Range Interpretation Comments eGFR (test code = eGFR) 94 [place] 139731-08-21 12:25:00 Test Item Value Reference Range Interpretation Comments Segs (test code = Segs) 60.4 45.0-75.0 [place] 139731-08-21 12:25:00 Test Item Value Reference Range Interpretation Comments Lymphocytes (test code = Lymphocytes) 28.7 20.0-40.0 [place] [address]-08-21 12:25:00 Test Item Value Reference Range Interpretation Comments Monocytes (test code = Monocytes) 7.2 2.0-12.0 [place] 139731-08-21 12:25:00 Test Item Value Reference Range Interpretation Comments Eosinophils (test code = 2.8 See_Comment [A utomated message] The Eosinophils) system which ge nerated this result tra nsmitted reference range : <=4.0. The reference r arelis was not used to int erpret this result as normal/abnormal . [place] 1397[address]-08-21 12:25:00 Test Item Value Reference Range Interpretation Comments Basophils (test code = 0.9 See_Comment [Aut omated message] The Basophils) system which ge nerated this result tra nsmitted reference range : <=1.0. The reference r arelis was not used to int erpret this result as normal/abnormal . [place] 139731-08-21 12:25:00 Test Item Value Reference Range Interpretation Comments Neutrophils # (test code = Neutrophils 4.0 1.5-8.1 #) [place] 1397[address]-08-21 12:25:00 Test Item Value Reference Range Interpretation Comments Lymphocytes # (test code = Lymphocytes 1.9 1.0-5.5 #) [place] [address]-08-21 12:25:00 Test Item Value Reference Range Interpretation Comments Monocytes # (test code 0.5 See_Comment [Aut omated message] The = Monocytes #) system which generated this result tra nsmitted reference range : <=0.8. The reference r arelis was not used to int erpret this result as normal/abnormal . [place] 1397[address]-08-21 12:25:00 Test Item Value Reference Range Interpretation Comments Eosinophils # (test code 0.2 See_Comment [A utomated message] The = Eosinophils #) system whic h generated this result tra nsmitted reference range : <=0.5. The reference r arelis was not used to int erpret this result as normal/abnormal . [facility] CentralYdsprtiTEBIFLIIBF1444-31-65 12:25:00 Test Item Value Reference Range Interpretation Comments Hgb (test code = Hgb) 7.6 12.0-16.0 [place] [address]-08-21 12:25:00 Test Item Value Reference Range Interpretation Comments Basophils # (test code 0.1 See_Comment [Aut omated message] The = Basophils #) system which generated this result tra nsmitted reference range : <=0.2. The reference r arelis was not used to int erpret this result as normal/abnormal . [facility] CentralBhowtrqFLPHMYGMZX6136-20-11 12:25:00 Test Item Value Reference Range Interpretation Comments PTT (test code = PTT) 32.8 s 22.9-35.8 [place] 1397[address]-08-21 12:25:00 Test Item Value Reference Range Interpretation Comments PT (test code = PT) 17.0 s 12.0-14.7 [place] 1397[address]-08-21 12:25:00 Test Item Value Reference Range Interpretation Comments INR (test code = INR) 1.41 1 0.85-1.17 [place] 1397[address]-08-21 12:25:00 Test Item Value Reference Range Interpretation Comments WBC (test code = WBC) 6.6 3.7-10.4 [place] 1397[address]-08-21 12:25:00 Test Item Value Reference Range Interpretation Comments RBC (test code = RBC) 2.58 4.20-5.40 [place] 1397[address]-08-21 12:25:00 Test Item Value Reference Range Interpretation Comments Hgb (test code = Hgb) 7.6 12.0-16.0 [place] [address]-08-21 12:25:00 Test Item Value Reference Range Interpretation Comments Hct (test code = Hct) 22.8 36.0-48.0 [place] 139731-08-21 12:25:00 Test Item Value Reference Range Interpretation Comments MCV (test code = MCV) 88.2 80.0-98.0 [facility]pqajcqQCPERYGUYP3388-60-60 12:25:00 Test Item Value Reference Range Interpretation Comments MCH (test code = MCH) 29.6 pg 27.0-31.0 [facility] CentralZebpfigQHSRSXOVUW4364-77-77 12:25:00 Test Item Value Reference Range Interpretation Comments Hct (test code = Hct) 22.8 36.0-48.0 [facility] CentralYjcrqiwBIYSEOJMZG3487-61-52 12:25:00 Test Item Value Reference Range Interpretation Comments MCHC (test code = MCHC) 33.6 32.0-36.0 [facility] CentralEluzaleXHRIYPDCVN9827-16-94 12:25:00 Test Item Value Reference Range Interpretation Comments RDW (test code = RDW) 15.2 11.5-14.5 [facility] CentralMvygxkmNDYWMIJAXP5838-39-69 12:25:00 Test Item Value Reference Range Interpretation Comments Platelet (test code = Platelet) 421 401-223 [facility] CentralZpvvonoWUACOHUJFE9468-36-51 12:25:00 Test Item Value Reference Range Interpretation Comments MPV (test code = MPV) 8.9 7.4-10.4 [facility] CentralOufrgsrYPMUOEHNPE6966-31-19 12:25:00 Test Item Value Reference Range Interpretation Comments MCV (test code = MCV) 88.2 80.0-98.0 [facility] CentralZdobojoCQLNGEPKEF9776-63-45 12:25:00 Test Item Value Reference Range Interpretation Comments MCH (test code = MCH) 29.6 pg 27.0-31.0 [facility] CentralHrkgruxZJISNLCIKG6504-00-16 12:25:00 Test Item Value Reference Range Interpretation Comments MCHC (test code = MCHC) 33.6 32.0-36.0 [facility] CentralRzmtxmdZMNDVMYXHX5194-64-28 12:25:00 Test Item Value Reference Range Interpretation Comments RDW (test code = RDW) 15.2 11.5-14.5 [facility] CentralCitvwbcOSUFKLGRSP1205-48-64 12:25:00 Test Item Value Reference Range Interpretation Comments Platelet (test code = Platelet) 421 981-278 [facility] CentralRdgcbbnIEWZVNEUKC5882-56-58 12:25:00 Test Item Value Reference Range Interpretation Comments MPV (test code = MPV) 8.9 7.4-10.4 [facility]2021-08-21 12:25:00 Test Item Value Reference Range Interpretation Comments Iron (test code = Iron) 30 [facility]2021-08-21 12:25:00 Test Item Value Reference Range Interpretation Comments TIBC (test code = TIBC) 252 [facility]2021-08-21 12:25:00 Test Item Value Reference Range Interpretation Comments % Satur Fe (test code = % Satur Fe) 12 [facility]2021-08-21 12:25:00 Test Item Value Reference Range Interpretation Comments Glucose Lvl (test code = Glucose Lvl) 99 70-99 [facility]2021-08-21 12:25:00 Test Item Value Reference Range Interpretation Comments BUN (test code = BUN) 7 7-22 [place] 853501-08-21 12:25:00 Test Item Value Reference Range Interpretation Comments Creatinine Lvl (test code = Creatinine 0.60 0.50-1.40 Lvl) [facility]2021-08-21 12:25:00 Test Item Value Reference Range Interpretation Comments Sodium Lvl (test code = Sodium Lvl) 148 135-145 [facility]2021-08-21 12:25:00 Test Item Value Reference Range Interpretation Comments Potassium Lvl (test code = Potassium 3.6 3.5-5.1 Lvl) [facility]2021-08-21 12:25:00 Test Item Value Reference Range Interpretation Comments Chloride Lvl (test code = Chloride Lvl) 116 95-109 [place] 853501-08-21 12:25:00 Test Item Value Reference Range Interpretation Comments CO2 (test code = CO2) 24 24-32 [place] 853501-08-21 12:25:00 Test Item Value Reference Range Interpretation Comments Calcium Lvl (test code = Calcium Lvl) 8.5 8.5-10.5 [place] 853501-08-21 12:25:00 Test Item Value Reference Range Interpretation Comments AGAP (test code = AGAP) 11.6 10.0-20.0 [place] 853501-08-21 12:25:00 Test Item Value Reference Range Interpretation Comments eGFR (test code = eGFR) 94 [facility] CentralOdgmzfaVVSAEIBXRL5585-99-33 12:25:00 Test Item Value Reference Range Interpretation Comments Segs (test code = Segs) 60.4 45.0-75.0 [place] 139731-08-21 12:25:00 Test Item Value Reference Range Interpretation Comments Lymphocytes (test code = Lymphocytes) 28.7 20.0-40.0 [place] [address]-08-21 12:25:00 Test Item Value Reference Range Interpretation Comments Monocytes (test code = Monocytes) 7.2 2.0-12.0 [place] 139731-08-21 12:25:00 Test Item Value Reference Range Interpretation Comments Eosinophils (test code = 2.8 See_Comment [A utomated message] The Eosinophils) system which ge nerated this result tra nsmitted reference range : <=4.0. The reference r arelis was not used to int erpret this result as normal/abnormal . [place] [address]-08-21 12:25:00 Test Item Value Reference Range Interpretation Comments Basophils (test code = 0.9 See_Comment [Aut omated message] The Basophils) system which ge nerated this result tra nsmitted reference range : <=1.0. The reference r arelis was not used to int erpret this result as normal/abnormal . [place] 139731-08-21 12:25:00 Test Item Value Reference Range Interpretation Comments Neutrophils # (test code = Neutrophils 4.0 1.5-8.1 #) [place] [address]-08-21 12:25:00 Test Item Value Reference Range Interpretation Comments Lymphocytes # (test code = Lymphocytes 1.9 1.0-5.5 #) [place] 139731-08-21 12:25:00 Test Item Value Reference Range Interpretation Comments Monocytes # (test code 0.5 See_Comment [Aut omated message] The = Monocytes #) system which generated this result tra nsmitted reference range : <=0.8. The reference r arelis was not used to int erpret this result as normal/abnormal . [place] 139731-08-21 12:25:00 Test Item Value Reference Range Interpretation Comments Eosinophils # (test code 0.2 See_Comment [A utomated message] The = Eosinophils #) system [facility] generated this result tra nsmitted reference range : <=0.5. The reference r arelis was not used to int erpret this result as normal/abnormal . [facility] CentralMixptuaUBJJRAQFBI1202-18-85 12:25:00 Test Item Value Reference Range Interpretation Comments Basophils # (test code 0.1 See_Comment [Aut omated message] The = Basophils #) system which generated this result tra nsmitted reference range : <=0.2. The reference r arelis was not used to int erpret this result as normal/abnormal . [facility] CentralDphkosqVRUEAKKUWJ8547-13-27 12:25:00 Test Item Value Reference Range Interpretation Comments PTT (test code = PTT) 32.8 s 22.9-35.8 [facility] CentralXdgcpteVXLXKONWKH5440-14-45 12:25:00 Test Item Value Reference Range Interpretation Comments PT (test code = PT) 17.0 s 12.0-14.7 [facility] CentralNvlxxpfWVKCYTTHMZ6106-09-74 12:25:00 Test Item Value Reference Range Interpretation Comments INR (test code = INR) 1.41 1 0.85-1.17 [facility] CentralHrnchndAATEDTCCGV9964-31-52 12:25:00 Test Item Value Reference Range Interpretation Comments WBC (test code = WBC) 6.6 3.7-10.4 [facility] CentralOmylrndNOMEBGMNMB9936-33-86 12:25:00 Test Item Value Reference Range Interpretation Comments RBC (test code = RBC) 2.58 4.20-5.40 [facility] CentralZaorszlRWNCENLKFP1215-42-49 12:25:00 Test Item Value Reference Range Interpretation Comments Hgb (test code = Hgb) 7.6 12.0-16.0 [facility] CentralOddbuisIBHZSALDRM6047-37-14 12:25:00 Test Item Value Reference Range Interpretation Comments Hct (test code = Hct) 22.8 36.0-48.0 [facility] CentralSbdpxquXTCPVZBWLN6168-21-70 12:25:00 Test Item Value Reference Range Interpretation Comments MCV (test code = MCV) 88.2 80.0-98.0 [place] 139731-08-21 12:25:00 Test Item Value Reference Range Interpretation Comments MCH (test code = MCH) 29.6 pg 27.0-31.0 [facility] CentralEbxhtozVUEOJZZSXM3190-64-02 12:25:00 Test Item Value Reference Range Interpretation Comments MCHC (test code = MCHC) 33.6 32.0-36.0 [place] 139731-08-21 12:25:00 Test Item Value Reference Range Interpretation Comments RDW (test code = RDW) 15.2 11.5-14.5 [place] [address]-08-21 12:25:00 Test Item Value Reference Range Interpretation Comments Platelet (test code = Platelet) 421 133-450 [place] 139731-08-21 12:25:00 Test Item Value Reference Range Interpretation Comments MPV (test code = MPV) 8.9 7.4-10.4 [facility]2021-08-21 12:25:00 Test Item Value Reference Range Interpretation Comments Iron (test code = Iron) 30 [place] 693571-08-21 12:25:00 Test Item Value Reference Range Interpretation Comments TIBC (test code = TIBC) 252 [place] 693571-08-21 12:25:00 Test Item Value Reference Range Interpretation Comments % Satur Fe (test code = % Satur Fe) 12 [place] 853501-08-21 12:25:00 Test Item Value Reference Range Interpretation Comments Glucose Lvl (test code = Glucose Lvl) 99 70-99 [place] 853501-08-21 12:25:00 Test Item Value Reference Range Interpretation Comments BUN (test code = BUN) 7 7-22 [place] 853501-08-21 12:25:00 Test Item Value Reference Range Interpretation Comments Creatinine Lvl (test code = Creatinine 0.60 0.50-1.40 Lvl) [place] 853501-08-21 12:25:00 Test Item Value Reference Range Interpretation Comments Sodium Lvl (test code = Sodium Lvl) 148 135-145 [place] 853501-08-21 12:25:00 Test Item Value Reference Range Interpretation Comments Potassium Lvl (test code = Potassium 3.6 3.5-5.1 Lvl) [place] 853501-08-21 12:25:00 Test Item Value Reference Range Interpretation Comments Chloride Lvl (test code = Chloride Lvl) 116 95-109 [place] 853501-08-21 12:25:00 Test Item Value Reference Range Interpretation Comments CO2 (test code = CO2) 24 24-32 [place] 853501-08-21 12:25:00 Test Item Value Reference Range Interpretation Comments Calcium Lvl (test code = Calcium Lvl) 8.5 8.5-10.5 [facility]2021-08-21 12:25:00 Test Item Value Reference Range Interpretation Comments AGAP (test code = AGAP) 11.6 10.0-20.0 [facility]2021-08-21 12:25:00 Test Item Value Reference Range Interpretation Comments eGFR (test code = eGFR) 94 [place] 139731-08-21 12:25:00 Test Item Value Reference Range Interpretation Comments Segs (test code = Segs) 60.4 45.0-75.0 [place] 139731-08-21 12:25:00 Test Item Value Reference Range Interpretation Comments Lymphocytes (test code = Lymphocytes) 28.7 20.0-40.0 [place] 139731-08-21 12:25:00 Test Item Value Reference Range Interpretation Comments Monocytes (test code = Monocytes) 7.2 2.0-12.0 [place] 139731-08-21 12:25:00 Test Item Value Reference Range Interpretation Comments Eosinophils (test code = 2.8 See_Comment [A utomated message] The Eosinophils) system which ge nerated this result tra nsmitted reference range : <=4.0. The reference r arelis was not used to int erpret this result as normal/abnormal . [place] 139731-08-21 12:25:00 Test Item Value Reference Range Interpretation Comments Basophils (test code = 0.9 See_Comment [Aut omated message] The Basophils) system which ge nerated this result tra nsmitted reference range : <=1.0. The reference r arelis was not used to int erpret this result as normal/abnormal . [place] 139731-08-21 12:25:00 Test Item Value Reference Range Interpretation Comments Neutrophils # (test code = Neutrophils 4.0 1.5-8.1 #) [place] 139731-08-21 12:25:00 Test Item Value Reference Range Interpretation Comments Lymphocytes # (test code = Lymphocytes 1.9 1.0-5.5 #) [place] 139731-08-21 12:25:00 Test Item Value Reference Range Interpretation Comments Monocytes # (test code 0.5 See_Comment [Aut omated message] The = Monocytes #) system which generated this result tra nsmitted reference range : <=0.8. The reference r arelis was not used to int erpret this result as normal/abnormal . [facility] CentralNuksbbmPDFEHOKRHS5483-56-16 12:25:00 Test Item Value Reference Range Interpretation Comments Eosinophils # (test code 0.2 See_Comment [A utomated message] The = Eosinophils #) system whic h generated this result tra nsmitted reference range : <=0.5. The reference r arelis was not used to int erpret this result as normal/abnormal . [facility] CentralDxtxzzuDMGMYZJVRY0291-46-72 12:25:00 Test Item Value Reference Range Interpretation Comments Basophils # (test code 0.1 See_Comment [Aut omated message] The = Basophils #) system which generated this result tra nsmitted reference range : <=0.2. The reference r arelis was not used to int erpret this result as normal/abnormal . [facility] CentralWzudifdIMSECNMMDY8097-25-68 12:25:00 Test Item Value Reference Range Interpretation Comments PTT (test code = PTT) 32.8 s 22.9-35.8 [place] 139731-08-21 12:25:00 Test Item Value Reference Range Interpretation Comments PT (test code = PT) 17.0 s 12.0-14.7 [place] 139731-08-21 12:25:00 Test Item Value Reference Range Interpretation Comments INR (test code = INR) 1.41 1 0.85-1.17 [place] 139731-08-21 12:25:00 Test Item Value Reference Range Interpretation Comments WBC (test code = WBC) 6.6 3.7-10.4 [place] 139731-08-21 12:25:00 Test Item Value Reference Range Interpretation Comments RBC (test code = RBC) 2.58 4.20-5.40 [place] 139731-08-21 12:25:00 Test Item Value Reference Range Interpretation Comments Hgb (test code = Hgb) 7.6 12.0-16.0 [place] 139731-08-21 12:25:00 Test Item Value Reference Range Interpretation Comments Hct (test code = Hct) 22.8 36.0-48.0 [place] 139731-08-21 12:25:00 Test Item Value Reference Range Interpretation Comments MCV (test code = MCV) 88.2 80.0-98.0 [place] 139731-08-21 12:25:00 Test Item Value Reference Range Interpretation Comments MCH (test code = MCH) 29.6 pg 27.0-31.0 [place] 139731-08-21 12:25:00 Test Item Value Reference Range Interpretation Comments MCHC (test code = MCHC) 33.6 32.0-36.0 [place] 139731-08-21 12:25:00 Test Item Value Reference Range Interpretation Comments RDW (test code = RDW) 15.2 11.5-14.5 [place] 139731-08-21 12:25:00 Test Item Value Reference Range Interpretation Comments Platelet (test code = Platelet) 421 133-450 [facility] CentralHrtsmktLQNJICMXAY0261-14-07 12:25:00 Test Item Value Reference Range Interpretation Comments MPV (test code = MPV) 8.9 7.4-10.4 [facility]2021-08-21 12:25:00 Test Item Value Reference Range Interpretation Comments Iron (test code = Iron) 30 [facility]2021-08-21 12:25:00 Test Item Value Reference Range Interpretation Comments TIBC (test code = TIBC) 252 [facility]2021-08-21 12:25:00 Test Item Value Reference Range Interpretation Comments % Satur Fe (test code = % Satur Fe) 12 [facility]2021-08-21 12:25:00 Test Item Value Reference Range Interpretation Comments Glucose Lvl (test code = Glucose Lvl) 99 70-99 [facility]2021-08-21 12:25:00 Test Item Value Reference Range Interpretation Comments BUN (test code = BUN) 7 7-22 [facility]2021-08-21 12:25:00 Test Item Value Reference Range Interpretation Comments Creatinine Lvl (test code = Creatinine 0.60 0.50-1.40 Lvl) [facility]2021-08-21 12:25:00 Test Item Value Reference Range Interpretation Comments Sodium Lvl (test code = Sodium Lvl) 148 135-145 [place] [address]-08-21 12:25:00 Test Item Value Reference Range Interpretation Comments Potassium Lvl (test code = Potassium 3.6 3.5-5.1 Lvl) [place] 853501-08-21 12:25:00 Test Item Value Reference Range Interpretation Comments Chloride Lvl (test code = Chloride Lvl) 116 95-109 [place] 853501-08-21 12:25:00 Test Item Value Reference Range Interpretation Comments CO2 (test code = CO2) 24 24-32 [place] [address]-08-21 12:25:00 Test Item Value Reference Range Interpretation Comments Calcium Lvl (test code = Calcium Lvl) 8.5 8.5-10.5 [place] [address]-08-21 12:25:00 Test Item Value Reference Range Interpretation Comments AGAP (test code = AGAP) 11.6 10.0-20.0 [place] [address]-08-21 12:25:00 Test Item Value Reference Range Interpretation Comments eGFR (test code = eGFR) 94 [place] [address]-08-21 12:25:00 Test Item Value Reference Range Interpretation Comments Segs (test code = Segs) 60.4 45.0-75.0 [place] [address]-08-21 12:25:00 Test Item Value Reference Range Interpretation Comments Lymphocytes (test code = Lymphocytes) 28.7 20.0-40.0 [place] [address]-08-21 12:25:00 Test Item Value Reference Range Interpretation Comments Monocytes (test code = Monocytes) 7.2 2.0-12.0 [place] [address]-08-21 12:25:00 Test Item Value Reference Range Interpretation Comments Eosinophils (test code = 2.8 See_Comment [A utomated message] The Eosinophils) system which ge nerated this result tra nsmitted reference range : <=4.0. The reference r arelis was not used to int erpret this result as normal/abnormal . [place] [address]-08-21 12:25:00 Test Item Value Reference Range Interpretation Comments Basophils (test code = 0.9 See_Comment [Aut omated message] The Basophils) system which ge nerated this result tra nsmitted reference range : <=1.0. The reference r arelis was not used to int erpret this result as normal/abnormal . [place] 139731-08-21 12:25:00 Test Item Value Reference Range Interpretation Comments Neutrophils # (test code = Neutrophils 4.0 1.5-8.1 #) [place] 139731-08-21 12:25:00 Test Item Value Reference Range Interpretation Comments Lymphocytes # (test code = Lymphocytes 1.9 1.0-5.5 #) [place] 139731-08-21 12:25:00 Test Item Value Reference Range Interpretation Comments Monocytes # (test code 0.5 See_Comment [Aut omated message] The = Monocytes #) system which generated this result tra nsmitted reference range : <=0.8. The reference r arelis was not used to int erpret this result as normal/abnormal . [place] 139731-08-21 12:25:00 Test Item Value Reference Range Interpretation Comments Eosinophils # (test code 0.2 See_Comment [A utomated message] The = Eosinophils #) system whic h generated this result tra nsmitted reference range : <=0.5. The reference r arelis was not used to int erpret this result as normal/abnormal . [place] 139731-08-21 12:25:00 Test Item Value Reference Range Interpretation Comments Basophils # (test code 0.1 See_Comment [Aut omated message] The = Basophils #) system which generated this result tra nsmitted reference range : <=0.2. The reference r arelis was not used to int erpret this result as normal/abnormal . [place] 139731-08-21 12:25:00 Test Item Value Reference Range Interpretation Comments PTT (test code = PTT) 32.8 s 22.9-35.8 [place] 139731-08-21 12:25:00 Test Item Value Reference Range Interpretation Comments PT (test code = PT) 17.0 s 12.0-14.7 [place] 139731-08-21 12:25:00 Test Item Value Reference Range Interpretation Comments INR (test code = INR) 1.41 1 0.85-1.17 [place] 139731-08-21 12:25:00 Test Item Value Reference Range Interpretation Comments WBC (test code = WBC) 6.6 3.7-10.4 [facility] CentralErkxeskELWWVVOQAE5208-03-01 12:25:00 Test Item Value Reference Range Interpretation Comments RBC (test code = RBC) 2.58 4.20-5.40 [facility] CentralLpvogfpFLDHHURWAI4432-30-00 12:25:00 Test Item Value Reference Range Interpretation Comments Hgb (test code = Hgb) 7.6 12.0-16.0 [facility] CentralTcscwmgOYIRDDXVWL6579-10-80 12:25:00 Test Item Value Reference Range Interpretation Comments Hct (test code = Hct) 22.8 36.0-48.0 [facility] CentralGashujqLCXWQWPAKY1077-59-76 12:25:00 Test Item Value Reference Range Interpretation Comments MCV (test code = MCV) 88.2 80.0-98.0 [facility] CentralQferovfCYZVOTRDFW5276-47-64 12:25:00 Test Item Value Reference Range Interpretation Comments MCH (test code = MCH) 29.6 pg 27.0-31.0 [facility] CentralHpckqifUWQJKFDBHI6931-80-84 12:25:00 Test Item Value Reference Range Interpretation Comments MCHC (test code = MCHC) 33.6 32.0-36.0 [facility] CentralZkwklbiCZCWASDIYO2430-02-93 12:25:00 Test Item Value Reference Range Interpretation Comments RDW (test code = RDW) 15.2 11.5-14.5 [facility] CentralVkmvqzsKJTGOOWXQS9094-85-04 12:25:00 Test Item Value Reference Range Interpretation Comments Platelet (test code = Platelet) 421 133-450 [facility] CentralVgrthwdMELGMYQVGP5940-60-92 12:25:00 Test Item Value Reference Range Interpretation Comments MPV (test code = MPV) 8.9 7.4-10.4 [facility]2021-08-21 12:25:00 Test Item Value Reference Range Interpretation Comments Iron (test code = Iron) 30 [facility]2021-08-21 12:25:00 Test Item Value Reference Range Interpretation Comments TIBC (test code = TIBC) 252 [facility]2021-08-21 12:25:00 Test Item Value Reference Range Interpretation Comments % Satur Fe (test code = % Satur Fe) 12 [facility]2021-08-21 12:25:00 Test Item Value Reference Range Interpretation Comments Glucose Lvl (test code = Glucose Lvl) 99 70-99 [place] 853501-08-21 12:25:00 Test Item Value Reference Range Interpretation Comments BUN (test code = BUN) 7 7-22 [place] 853501-08-21 12:25:00 Test Item Value Reference Range Interpretation Comments Creatinine Lvl (test code = Creatinine 0.60 0.50-1.40 Lvl) [place] 853501-08-21 12:25:00 Test Item Value Reference Range Interpretation Comments Sodium Lvl (test code = Sodium Lvl) 148 135-145 [place] 853501-08-21 12:25:00 Test Item Value Reference Range Interpretation Comments Potassium Lvl (test code = Potassium 3.6 3.5-5.1 Lvl) [place] 853501-08-21 12:25:00 Test Item Value Reference Range Interpretation Comments Chloride Lvl (test code = Chloride Lvl) 116 95-109 [place] 853501-08-21 12:25:00 Test Item Value Reference Range Interpretation Comments CO2 (test code = CO2) 24 24-32 [place] 853501-08-21 12:25:00 Test Item Value Reference Range Interpretation Comments Calcium Lvl (test code = Calcium Lvl) 8.5 8.5-10.5 [place] 853501-08-21 12:25:00 Test Item Value Reference Range Interpretation Comments AGAP (test code = AGAP) 11.6 10.0-20.0 [place] 853501-08-21 12:25:00 Test Item Value Reference Range Interpretation Comments eGFR (test code = eGFR) 94 [place] 139731-08-21 12:25:00 Test Item Value Reference Range Interpretation Comments Segs (test code = Segs) 60.4 45.0-75.0 [place] [address]-08-21 12:25:00 Test Item Value Reference Range Interpretation Comments Lymphocytes (test code = Lymphocytes) 28.7 20.0-40.0 [place] [address]-08-21 12:25:00 Test Item Value Reference Range Interpretation Comments Monocytes (test code = Monocytes) 7.2 2.0-12.0 [place] [address]-08-21 12:25:00 Test Item Value Reference Range Interpretation Comments Eosinophils (test code = 2.8 See_Comment [A utomated message] The Eosinophils) system which ge nerated this result tra nsmitted reference range : <=4.0. The reference r arelis was not used to int erpret this result as normal/abnormal . [place] 139731-08-21 12:25:00 Test Item Value Reference Range Interpretation Comments Basophils (test code = 0.9 See_Comment [Aut omated message] The Basophils) system which ge nerated this result tra nsmitted reference range : <=1.0. The reference r arelis was not used to int erpret this result as normal/abnormal . [place] 139731-08-21 12:25:00 Test Item Value Reference Range Interpretation Comments Neutrophils # (test code = Neutrophils 4.0 1.5-8.1 #) [place] 139731-08-21 12:25:00 Test Item Value Reference Range Interpretation Comments Lymphocytes # (test code = Lymphocytes 1.9 1.0-5.5 #) [place] 139731-08-21 12:25:00 Test Item Value Reference Range Interpretation Comments Monocytes # (test code 0.5 See_Comment [Aut omated message] The = Monocytes #) system which generated this result tra nsmitted reference range : <=0.8. The reference r arelis was not used to int erpret this result as normal/abnormal . [id number] 12:25:00 Test Item Value Reference Range Interpretation Comments Eosinophils # (test code 0.2 See_Comment [A utomated message] The = Eosinophils #) system whic h generated this result tra nsmitted reference range : <=0.5. The reference r arelis was not used to int erpret this result as normal/abnormal . [place] 139731-08-21 12:25:00 Test Item Value Reference Range Interpretation Comments Basophils # (test code 0.1 See_Comment [Aut omated message] The = Basophils #) system which generated this result tra nsmitted reference range : <=0.2. The reference r arelis was not used to int erpret this result as normal/abnormal . [place] 139731-08-21 12:25:00 Test Item Value Reference Range Interpretation Comments PTT (test code = PTT) 32.8 s 22.9-35.8 [id number] 12:25:00 Test Item Value Reference Range Interpretation Comments PT (test code = PT) 17.0 s 12.0-14.7 [place] 139731-08-21 12:25:00 Test Item Value Reference Range Interpretation Comments INR (test code = INR) 1.41 1 0.85-1.17 [place] 139731-08-21 12:25:00 Test Item Value Reference Range Interpretation Comments WBC (test code = WBC) 6.6 3.7-10.4 [facility] [id number] 12:25:00 Test Item Value Reference Range Interpretation Comments RBC (test code = RBC) 2.58 4.20-5.40 [place] 139731-08-21 12:25:00 Test Item Value Reference Range Interpretation Comments Hgb (test code = Hgb) 7.6 12.0-16.0 [place] 139731-08-21 12:25:00 Test Item Value Reference Range Interpretation Comments Hct (test code = Hct) 22.8 36.0-48.0 [facility] [id number] 12:25:00 Test Item Value Reference Range Interpretation Comments MCV (test code = MCV) 88.2 80.0-98.0 [place] 139731-08-21 12:25:00 Test Item Value Reference Range Interpretation Comments MCH (test code = MCH) 29.6 pg 27.0-31.0 [place] 139731-08-21 12:25:00 Test Item Value Reference Range Interpretation Comments MCHC (test code = MCHC) 33.6 32.0-36.0 [place] 139731-08-21 12:25:00 Test Item Value Reference Range Interpretation Comments RDW (test code = RDW) 15.2 11.5-14.5 [facility] [id number] 12:25:00 Test Item Value Reference Range Interpretation Comments Platelet (test code = Platelet) 421 133-450 [facility] [id number] 12:25:00 Test Item Value Reference Range Interpretation Comments MPV (test code = MPV) 8.9 7.4-10.4 [facility]2021-08-21 12:25:00 Test Item Value Reference Range Interpretation Comments Iron (test code = Iron) 30 [facility]2021-08-21 12:25:00 Test Item Value Reference Range Interpretation Comments TIBC (test code = TIBC) 252 [facility]2021-08-21 12:25:00 Test Item Value Reference Range Interpretation Comments % Satur Fe (test code = % Satur Fe) 12 [facility]2021-08-21 12:25:00 Test Item Value Reference Range Interpretation Comments Glucose Lvl (test code = Glucose Lvl) 99 70-99 [place] 853501-08-21 12:25:00 Test Item Value Reference Range Interpretation Comments BUN (test code = BUN) 7 7-22 [facility]2021-08-21 12:25:00 Test Item Value Reference Range Interpretation Comments Creatinine Lvl (test code = Creatinine 0.60 0.50-1.40 Lvl) [place] 853501-08-21 12:25:00 Test Item Value Reference Range Interpretation Comments Sodium Lvl (test code = Sodium Lvl) 148 135-145 [place] 853501-08-21 12:25:00 Test Item Value Reference Range Interpretation Comments Potassium Lvl (test code = Potassium 3.6 3.5-5.1 Lvl) [facility]2021-08-21 12:25:00 Test Item Value Reference Range Interpretation Comments Chloride Lvl (test code = Chloride Lvl) 116 95-109 [place] 853501-08-21 12:25:00 Test Item Value Reference Range Interpretation Comments CO2 (test code = CO2) 24 24-32 [place] 853501-08-21 12:25:00 Test Item Value Reference Range Interpretation Comments Calcium Lvl (test code = Calcium Lvl) 8.5 8.5-10.5 [place] 853501-08-21 12:25:00 Test Item Value Reference Range Interpretation Comments AGAP (test code = AGAP) 11.6 10.0-20.0 [place] 853501-08-21 12:25:00 Test Item Value Reference Range Interpretation Comments eGFR (test code = eGFR) 94 [place] 139731-08-21 12:25:00 Test Item Value Reference Range Interpretation Comments Segs (test code = Segs) 60.4 45.0-75.0 [place] 139731-08-21 12:25:00 Test Item Value Reference Range Interpretation Comments Lymphocytes (test code = Lymphocytes) 28.7 20.0-40.0 [place] 139731-08-21 12:25:00 Test Item Value Reference Range Interpretation Comments Monocytes (test code = Monocytes) 7.2 2.0-12.0 [place] 139731-08-21 12:25:00 Test Item Value Reference Range Interpretation Comments Eosinophils (test code = 2.8 See_Comment [A utomated message] The Eosinophils) system which ge nerated this result tra nsmitted reference range : <=4.0. The reference r arelis was not used to int erpret this result as normal/abnormal . [place] 139731-08-21 12:25:00 Test Item Value Reference Range Interpretation Comments Basophils (test code = 0.9 See_Comment [Aut omated message] The Basophils) system which ge nerated this result tra nsmitted reference range : <=1.0. The reference r arelis was not used to int erpret this result as normal/abnormal . [place] 139731-08-21 12:25:00 Test Item Value Reference Range Interpretation Comments Neutrophils # (test code = Neutrophils 4.0 1.5-8.1 #) [place] 139731-08-21 12:25:00 Test Item Value Reference Range Interpretation Comments Lymphocytes # (test code = Lymphocytes 1.9 1.0-5.5 #) [place] 1397[address]-08-21 12:25:00 Test Item Value Reference Range Interpretation Comments Monocytes # (test code 0.5 See_Comment [Aut omated message] The = Monocytes #) system which generated this result tra nsmitted reference range : <=0.8. The reference r arelis was not used to int erpret this result as normal/abnormal . [place] 1397[address]-08-21 12:25:00 Test Item Value Reference Range Interpretation Comments Eosinophils # (test code 0.2 See_Comment [A utomated message] The = Eosinophils #) system whic h generated this result tra nsmitted reference range : <=0.5. The reference r arelis was not used to int erpret this result as normal/abnormal . [facility] [id number] 12:25:00 Test Item Value Reference Range Interpretation Comments Basophils # (test code 0.1 See_Comment [Aut omated message] The = Basophils #) system which generated this result tra nsmitted reference range : <=0.2. The reference r arelis was not used to int erpret this result as normal/abnormal . [facility] [id number] 12:25:00 Test Item Value Reference Range Interpretation Comments PTT (test code = PTT) 32.8 s 22.9-35.8 [place] 1397[address]-08-21 12:25:00 Test Item Value Reference Range Interpretation Comments PT (test code = PT) 17.0 s 12.0-14.7 [place] 139731-08-21 12:25:00 Test Item Value Reference Range Interpretation Comments INR (test code = INR) 1.41 1 0.85-1.17 [place] 1397[address]-08-21 12:25:00 Test Item Value Reference Range Interpretation Comments WBC (test code = WBC) 6.6 3.7-10.4 [place] 1397[address]-08-21 12:25:00 Test Item Value Reference Range Interpretation Comments RBC (test code = RBC) 2.58 4.20-5.40 [place] 1397[address]-08-21 12:25:00 Test Item Value Reference Range Interpretation Comments Hgb (test code = Hgb) 7.6 12.0-16.0 [place] 139731-08-21 12:25:00 Test Item Value Reference Range Interpretation Comments Hct (test code = Hct) 22.8 36.0-48.0 [place] 1397[address]-08-21 12:25:00 Test Item Value Reference Range Interpretation Comments MCV (test code = MCV) 88.2 80.0-98.0 [place] 139731-08-21 12:25:00 Test Item Value Reference Range Interpretation Comments MCH (test code = MCH) 29.6 pg 27.0-31.0 [place] 139731-08-21 12:25:00 Test Item Value Reference Range Interpretation Comments MCHC (test code = MCHC) 33.6 32.0-36.0 [place] 1397[address]-08-21 12:25:00 Test Item Value Reference Range Interpretation Comments RDW (test code = RDW) 15.2 11.5-14.5 [place] 1397[address]-08-21 12:25:00 Test Item Value Reference Range Interpretation Comments Platelet (test code = Platelet) 421 133-450 [place] 139731-08-21 12:25:00 Test Item Value Reference Range Interpretation Comments MPV (test code = MPV) 8.9 7.4-10.4 [facility]2021-08-21 12:25:00 Test Item Value Reference Range Interpretation Comments Iron (test code = Iron) 30 [place] 693571-08-21 12:25:00 Test Item Value Reference Range Interpretation Comments TIBC (test code = TIBC) 252 [facility]2021-08-21 12:25:00 Test Item Value Reference Range Interpretation Comments % Satur Fe (test code = % Satur Fe) 12 [facility]2021-08-21 12:25:00 Test Item Value Reference Range Interpretation Comments Glucose Lvl (test code = Glucose Lvl) 99 70-99 [facility]2021-08-21 12:25:00 Test Item Value Reference Range Interpretation Comments BUN (test code = BUN) 7 7-22 [place] 853501-08-21 12:25:00 Test Item Value Reference Range Interpretation Comments Creatinine Lvl (test code = Creatinine 0.60 0.50-1.40 Lvl) [place] 853501-08-21 12:25:00 Test Item Value Reference Range Interpretation Comments Sodium Lvl (test code = Sodium Lvl) 148 135-145 [place] 853501-08-21 12:25:00 Test Item Value Reference Range Interpretation Comments Potassium Lvl (test code = Potassium 3.6 3.5-5.1 Lvl) [place] 853501-08-21 12:25:00 Test Item Value Reference Range Interpretation Comments Chloride Lvl (test code = Chloride Lvl) 116 95-109 [place] 853501-08-21 12:25:00 Test Item Value Reference Range Interpretation Comments CO2 (test code = CO2) 24 24-32 [facility]2021-08-21 12:25:00 Test Item Value Reference Range Interpretation Comments Calcium Lvl (test code = Calcium Lvl) 8.5 8.5-10.5 [place] 853501-08-21 12:25:00 Test Item Value Reference Range Interpretation Comments AGAP (test code = AGAP) 11.6 10.0-20.0 [place] 853501-08-21 12:25:00 Test Item Value Reference Range Interpretation Comments eGFR (test code = eGFR) 94 [place] 139731-08-21 12:25:00 Test Item Value Reference Range Interpretation Comments Segs (test code = Segs) 60.4 45.0-75.0 [place] 139731-08-21 12:25:00 Test Item Value Reference Range Interpretation Comments Lymphocytes (test code = Lymphocytes) 28.7 20.0-40.0 [place] 139731-08-21 12:25:00 Test Item Value Reference Range Interpretation Comments Monocytes (test code = Monocytes) 7.2 2.0-12.0 [place]7[address]-08-21 12:25:00 Test Item Value Reference Range Interpretation Comments Eosinophils (test code = 2.8 See_Comment [A utomated message] The Eosinophils) system which ge nerated this result tra nsmitted reference range : <=4.0. The reference r arelis was not used to int erpret this result as normal/abnormal . [place] 139731-08-21 12:25:00 Test Item Value Reference Range Interpretation Comments Basophils (test code = 0.9 See_Comment [Aut omated message] The Basophils) system which ge nerated this result tra nsmitted reference range : <=1.0. The reference r arelis was not used to int erpret this result as normal/abnormal . [place] 139731-08-21 12:25:00 Test Item Value Reference Range Interpretation Comments Neutrophils # (test code = Neutrophils 4.0 1.5-8.1 #) [place] 139731-08-21 12:25:00 Test Item Value Reference Range Interpretation Comments Lymphocytes # (test code = Lymphocytes 1.9 1.0-5.5 #) [place] 139731-08-21 12:25:00 Test Item Value Reference Range Interpretation Comments Monocytes # (test code 0.5 See_Comment [Aut omated message] The = Monocytes #) system which generated this result tra nsmitted reference range : <=0.8. The reference r arelis was not used to int erpret this result as normal/abnormal . [facility] [id number] 12:25:00 Test Item Value Reference Range Interpretation Comments Eosinophils # (test code 0.2 See_Comment [A utomated message] The = Eosinophils #) system whic h generated this result tra nsmitted reference range : <=0.5. The reference r arelis was not used to int erpret this result as normal/abnormal . [facility] [id number] 12:25:00 Test Item Value Reference Range Interpretation Comments Basophils # (test code 0.1 See_Comment [Aut omated message] The = Basophils #) system which generated this result tra nsmitted reference range : <=0.2. The reference r arelis was not used to int erpret this result as normal/abnormal . [facility] [id number] 12:25:00 Test Item Value Reference Range Interpretation Comments PTT (test code = PTT) 32.8 s 22.9-35.8 [place] [address]-08-21 12:25:00 Test Item Value Reference Range Interpretation Comments PT (test code = PT) 17.0 s 12.0-14.7 [place] 139731-08-21 12:25:00 Test Item Value Reference Range Interpretation Comments INR (test code = INR) 1.41 1 0.85-1.17 [place] 139731-08-21 12:25:00 Test Item Value Reference Range Interpretation Comments WBC (test code = WBC) 6.6 3.7-10.4 [place] 139731-08-21 12:25:00 Test Item Value Reference Range Interpretation Comments RBC (test code = RBC) 2.58 4.20-5.40 [place] 139731-08-21 12:25:00 Test Item Value Reference Range Interpretation Comments Hgb (test code = Hgb) 7.6 12.0-16.0 [place] 139731-08-21 12:25:00 Test Item Value Reference Range Interpretation Comments Hct (test code = Hct) 22.8 36.0-48.0 [place] 139731-08-21 12:25:00 Test Item Value Reference Range Interpretation Comments MCV (test code = MCV) 88.2 80.0-98.0 [place] 139731-08-21 12:25:00 Test Item Value Reference Range Interpretation Comments MCH (test code = MCH) 29.6 pg 27.0-31.0 [place] 139731-08-21 12:25:00 Test Item Value Reference Range Interpretation Comments MCHC (test code = MCHC) 33.6 32.0-36.0 [place] 1397[address]-08-21 12:25:00 Test Item Value Reference Range Interpretation Comments RDW (test code = RDW) 15.2 11.5-14.5 [place] 1397[address]-08-21 12:25:00 Test Item Value Reference Range Interpretation Comments Platelet (test code = Platelet) 421 133-450 [facility] [id number] 12:25:00 Test Item Value Reference Range Interpretation Comments MPV (test code = MPV) 8.9 7.4-10.4 [facility]2021-08-21 12:25:00 Test Item Value Reference Range Interpretation Comments Iron (test code = Iron) 30 [facility]2021-08-21 12:25:00 Test Item Value Reference Range Interpretation Comments TIBC (test code = TIBC) 252 [facility]2021-08-21 12:25:00 Test Item Value Reference Range Interpretation Comments % Satur Fe (test code = % Satur Fe) 12 [facility]2021-08-21 12:25:00 Test Item Value Reference Range Interpretation Comments Glucose Lvl (test code = Glucose Lvl) 99 70-99 [facility]2021-08-21 12:25:00 Test Item Value Reference Range Interpretation Comments BUN (test code = BUN) 7 7-22 [place] 853501-08-21 12:25:00 Test Item Value Reference Range Interpretation Comments Creatinine Lvl (test code = Creatinine 0.60 0.50-1.40 Lvl) [facility]2021-08-21 12:25:00 Test Item Value Reference Range Interpretation Comments Sodium Lvl (test code = Sodium Lvl) 148 135-145 [place] 853501-08-21 12:25:00 Test Item Value Reference Range Interpretation Comments Potassium Lvl (test code = Potassium 3.6 3.5-5.1 Lvl) [place] 853501-08-21 12:25:00 Test Item Value Reference Range Interpretation Comments Chloride Lvl (test code = Chloride Lvl) 116 95-109 [place] 853501-08-21 12:25:00 Test Item Value Reference Range Interpretation Comments CO2 (test code = CO2) 24 24-32 [place] 853501-08-21 12:25:00 Test Item Value Reference Range Interpretation Comments Calcium Lvl (test code = Calcium Lvl) 8.5 8.5-10.5 [place] 853501-08-21 12:25:00 Test Item Value Reference Range Interpretation Comments AGAP (test code = AGAP) 11.6 10.0-20.0 [place] 853501-08-21 12:25:00 Test Item Value Reference Range Interpretation Comments eGFR (test code = eGFR) 94 [place] 139731-08-21 12:25:00 Test Item Value Reference Range Interpretation Comments Segs (test code = Segs) 60.4 45.0-75.0 [place] 139731-08-21 12:25:00 Test Item Value Reference Range Interpretation Comments Lymphocytes (test code = Lymphocytes) 28.7 20.0-40.0 [place] 139731-08-21 12:25:00 Test Item Value Reference Range Interpretation Comments Monocytes (test code = Monocytes) 7.2 2.0-12.0 [place] [address]-08-21 12:25:00 Test Item Value Reference Range Interpretation Comments Eosinophils (test code = 2.8 See_Comment [A utomated message] The Eosinophils) system which ge nerated this result tra nsmitted reference range : <=4.0. The reference r arelis was not used to int erpret this result as normal/abnormal . [place] 1397[address]-08-21 12:25:00 Test Item Value Reference Range Interpretation Comments Basophils (test code = 0.9 See_Comment [Aut omated message] The Basophils) system which ge nerated this result tra nsmitted reference range : <=1.0. The reference r arelis was not used to int erpret this result as normal/abnormal . [facility] [id number] 12:25:00 Test Item Value Reference Range Interpretation Comments Neutrophils # (test code = Neutrophils 4.0 1.5-8.1 #) [facility] [id number] 12:25:00 Test Item Value Reference Range Interpretation Comments Lymphocytes # (test code = Lymphocytes 1.9 1.0-5.5 #) [place] [address]-08-21 12:25:00 Test Item Value Reference Range Interpretation Comments Monocytes # (test code 0.5 See_Comment [Aut omated message] The = Monocytes #) system which generated this result tra nsmitted reference range : <=0.8. The reference r arelis was not used to int erpret this result as normal/abnormal . [facility] [id number] 12:25:00 Test Item Value Reference Range Interpretation Comments Eosinophils # (test code 0.2 See_Comment [A utomated message] The = Eosinophils #) system whic h generated this result tra nsmitted reference range : <=0.5. The reference r arelis was not used to int erpret this result as normal/abnormal . [facility] [id number] 12:25:00 Test Item Value Reference Range Interpretation Comments Basophils # (test code 0.1 See_Comment [Aut omated message] The = Basophils #) system which generated this result tra nsmitted reference range : <=0.2. The reference r arelis was not used to int erpret this result as normal/abnormal . [place] 139731-08-21 12:25:00 Test Item Value Reference Range Interpretation Comments PTT (test code = PTT) 32.8 s 22.9-35.8 [place] 139731-08-21 12:25:00 Test Item Value Reference Range Interpretation Comments PT (test code = PT) 17.0 s 12.0-14.7 [place] 139731-08-21 12:25:00 Test Item Value Reference Range Interpretation Comments INR (test code = INR) 1.41 1 0.85-1.17 [place] 1397[address]-08-21 12:25:00 Test Item Value Reference Range Interpretation Comments WBC (test code = WBC) 6.6 3.7-10.4 [place] 139731-08-21 12:25:00 Test Item Value Reference Range Interpretation Comments RBC (test code = RBC) 2.58 4.20-5.40 [place] 139731-08-21 12:25:00 Test Item Value Reference Range Interpretation Comments Hgb (test code = Hgb) 7.6 12.0-16.0 [place] 139731-08-21 12:25:00 Test Item Value Reference Range Interpretation Comments Hct (test code = Hct) 22.8 36.0-48.0 [place] 1397[address]-08-21 12:25:00 Test Item Value Reference Range Interpretation Comments MCV (test code = MCV) 88.2 80.0-98.0 [place] 1397[address]-08-21 12:25:00 Test Item Value Reference Range Interpretation Comments MCH (test code = MCH) 29.6 pg 27.0-31.0 [facility] [id number] 12:25:00 Test Item Value Reference Range Interpretation Comments MCHC (test code = MCHC) 33.6 32.0-36.0 [place] 1397[address]-08-21 12:25:00 Test Item Value Reference Range Interpretation Comments RDW (test code = RDW) 15.2 11.5-14.5 [place] 139731-08-21 12:25:00 Test Item Value Reference Range Interpretation Comments Platelet (test code = Platelet) 421 133-450 [facility] [id number] 12:25:00 Test Item Value Reference Range Interpretation Comments MPV (test code = MPV) 8.9 7.4-10.4 [facility]2021-08-21 12:25:00 Test Item Value Reference Range Interpretation Comments Iron (test code = Iron) 30 [facility]2021-08-21 12:25:00 Test Item Value Reference Range Interpretation Comments TIBC (test code = TIBC) 252 [facility]2021-08-21 12:25:00 Test Item Value Reference Range Interpretation Comments % Satur Fe (test code = % Satur Fe) 12 [place] 853501-08-21 12:25:00 Test Item Value Reference Range Interpretation Comments Glucose Lvl (test code = Glucose Lvl) 99 70-99 [place] 853501-08-21 12:25:00 Test Item Value Reference Range Interpretation Comments BUN (test code = BUN) 7 7-22 [place] 853501-08-21 12:25:00 Test Item Value Reference Range Interpretation Comments Creatinine Lvl (test code = Creatinine 0.60 0.50-1.40 Lvl) [place] 853501-08-21 12:25:00 Test Item Value Reference Range Interpretation Comments Sodium Lvl (test code = Sodium Lvl) 148 135-145 [place] 853501-08-21 12:25:00 Test Item Value Reference Range Interpretation Comments Potassium Lvl (test code = Potassium 3.6 3.5-5.1 Lvl) [place] 853501-08-21 12:25:00 Test Item Value Reference Range Interpretation Comments Chloride Lvl (test code = Chloride Lvl) 116 95-109 [place] 853501-08-21 12:25:00 Test Item Value Reference Range Interpretation Comments CO2 (test code = CO2) 24 24-32 [place] 853501-08-21 12:25:00 Test Item Value Reference Range Interpretation Comments Calcium Lvl (test code = Calcium Lvl) 8.5 8.5-10.5 [place] 853501-08-21 12:25:00 Test Item Value Reference Range Interpretation Comments AGAP (test code = AGAP) 11.6 10.0-20.0 [place] 853501-08-21 12:25:00 Test Item Value Reference Range Interpretation Comments eGFR (test code = eGFR) 94 [place] 139731-08-21 12:25:00 Test Item Value Reference Range Interpretation Comments Segs (test code = Segs) 60.4 45.0-75.0 [place] 139731-08-21 12:25:00 Test Item Value Reference Range Interpretation Comments Lymphocytes (test code = Lymphocytes) 28.7 20.0-40.0 [place] 139731-08-21 12:25:00 Test Item Value Reference Range Interpretation Comments Monocytes (test code = Monocytes) 7.2 2.0-12.0 [place] 139731-08-21 12:25:00 Test Item Value Reference Range Interpretation Comments Eosinophils (test code = 2.8 See_Comment [A utomated message] The Eosinophils) system which ge nerated this result tra nsmitted reference range : <=4.0. The reference r arelis was not used to int erpret this result as normal/abnormal . [place] 139731-08-21 12:25:00 Test Item Value Reference Range Interpretation Comments Basophils (test code = 0.9 See_Comment [Aut omated message] The Basophils) system which ge nerated this result tra nsmitted reference range : <=1.0. The reference r arelis was not used to int erpret this result as normal/abnormal . [place] 139731-08-21 12:25:00 Test Item Value Reference Range Interpretation Comments Neutrophils # (test code = Neutrophils 4.0 1.5-8.1 #) [place] 139731-08-21 12:25:00 Test Item Value Reference Range Interpretation Comments Lymphocytes # (test code = Lymphocytes 1.9 1.0-5.5 #) [place] 139731-08-21 12:25:00 Test Item Value Reference Range Interpretation Comments Monocytes # (test code 0.5 See_Comment [Aut omated message] The = Monocytes #) system which generated this result tra nsmitted reference range : <=0.8. The reference r arelis was not used to int erpret this result as normal/abnormal . [place] 139731-08-21 12:25:00 Test Item Value Reference Range Interpretation Comments Eosinophils # (test code 0.2 See_Comment [A utomated message] The = Eosinophils #) system whic h generated this result tra nsmitted reference range : <=0.5. The reference r arelis was not used to int erpret this result as normal/abnormal . [place] 139731-08-21 12:25:00 Test Item Value Reference Range Interpretation Comments Basophils # (test code 0.1 See_Comment [Aut omated message] The = Basophils #) system which generated this result tra nsmitted reference range : <=0.2. The reference r arelis was not used to int erpret this result as normal/abnormal . [id number] 12:25:00 Test Item Value Reference Range Interpretation Comments PTT (test code = PTT) 32.8 s 22.9-35.8 [place] 139731-08-21 12:25:00 Test Item Value Reference Range Interpretation Comments PT (test code = PT) 17.0 s 12.0-14.7 [place] 139731-08-21 12:25:00 Test Item Value Reference Range Interpretation Comments INR (test code = INR) 1.41 1 0.85-1.17 [place] 139731-08-21 12:25:00 Test Item Value Reference Range Interpretation Comments WBC (test code = WBC) 6.6 3.7-10.4 [place] 139731-08-21 12:25:00 Test Item Value Reference Range Interpretation Comments RBC (test code = RBC) 2.58 4.20-5.40 [facility] [id number] 12:25:00 Test Item Value Reference Range Interpretation Comments Hgb (test code = Hgb) 7.6 12.0-16.0 [place] 139731-08-21 12:25:00 Test Item Value Reference Range Interpretation Comments Hct (test code = Hct) 22.8 36.0-48.0 [facility] CentralVaghjktMMJPZADZJR1048-83-54 12:25:00 Test Item Value Reference Range Interpretation Comments MCV (test code = MCV) 88.2 80.0-98.0 [place] 139731-08-21 12:25:00 Test Item Value Reference Range Interpretation Comments MCH (test code = MCH) 29.6 pg 27.0-31.0 [place] 139731-08-21 12:25:00 Test Item Value Reference Range Interpretation Comments MCHC (test code = MCHC) 33.6 32.0-36.0 [place] 139731-08-21 12:25:00 Test Item Value Reference Range Interpretation Comments RDW (test code = RDW) 15.2 11.5-14.5 [place] 139731-08-21 12:25:00 Test Item Value Reference Range Interpretation Comments Platelet (test code = Platelet) 421 133-450 [facility] CentralYqmwplaDIKLPTNYUI8677-62-67 12:25:00 Test Item Value Reference Range Interpretation Comments MPV (test code = MPV) 8.9 7.4-10.4 [place] 693571-08-21 12:25:00 Test Item Value Reference Range Interpretation Comments Iron (test code = Iron) 30 [place] 693571-08-21 12:25:00 Test Item Value Reference Range Interpretation Comments TIBC (test code = TIBC) 252 [facility]2021-08-21 12:25:00 Test Item Value Reference Range Interpretation Comments % Satur Fe (test code = % Satur Fe) 12 [facility]2021-08-21 12:25:00 Test Item Value Reference Range Interpretation Comments Glucose Lvl (test code = Glucose Lvl) 99 70-99 [facility]2021-08-21 12:25:00 Test Item Value Reference Range Interpretation Comments BUN (test code = BUN) 7 7-22 [place] 853501-08-21 12:25:00 Test Item Value Reference Range Interpretation Comments Creatinine Lvl (test code = Creatinine 0.60 0.50-1.40 Lvl) [place] 853501-08-21 12:25:00 Test Item Value Reference Range Interpretation Comments Sodium Lvl (test code = Sodium Lvl) 148 135-145 [place] 853501-08-21 12:25:00 Test Item Value Reference Range Interpretation Comments Potassium Lvl (test code = Potassium 3.6 3.5-5.1 Lvl) [facility]2021-08-21 12:25:00 Test Item Value Reference Range Interpretation Comments Chloride Lvl (test code = Chloride Lvl) 116 95-109 [place] 853501-08-21 12:25:00 Test Item Value Reference Range Interpretation Comments CO2 (test code = CO2) 24 24-32 [place] 853501-08-21 12:25:00 Test Item Value Reference Range Interpretation Comments Calcium Lvl (test code = Calcium Lvl) 8.5 8.5-10.5 [place] 853501-08-21 12:25:00 Test Item Value Reference Range Interpretation Comments AGAP (test code = AGAP) 11.6 10.0-20.0 [place] 853501-08-21 12:25:00 Test Item Value Reference Range Interpretation Comments eGFR (test code = eGFR) 94 [place] 139731-08-21 12:25:00 Test Item Value Reference Range Interpretation Comments Segs (test code = Segs) 60.4 45.0-75.0 [place] 139731-08-21 12:25:00 Test Item Value Reference Range Interpretation Comments Lymphocytes (test code = Lymphocytes) 28.7 20.0-40.0 [place] 139731-08-21 12:25:00 Test Item Value Reference Range Interpretation Comments Monocytes (test code = Monocytes) 7.2 2.0-12.0 [place] 139731-08-21 12:25:00 Test Item Value Reference Range Interpretation Comments Eosinophils (test code = 2.8 See_Comment [A utomated message] The Eosinophils) system which ge nerated this result tra nsmitted reference range : <=4.0. The reference r arelis was not used to int erpret this result as normal/abnormal . [place] 139731-08-21 12:25:00 Test Item Value Reference Range Interpretation Comments Basophils (test code = 0.9 See_Comment [Aut omated message] The Basophils) system which ge nerated this result tra nsmitted reference range : <=1.0. The reference r arelis was not used to int erpret this result as normal/abnormal . [place] 139731-08-21 12:25:00 Test Item Value Reference Range Interpretation Comments Neutrophils # (test code = Neutrophils 4.0 1.5-8.1 #) [place] 139731-08-21 12:25:00 Test Item Value Reference Range Interpretation Comments Lymphocytes # (test code = Lymphocytes 1.9 1.0-5.5 #) [place] 139731-08-21 12:25:00 Test Item Value Reference Range Interpretation Comments Monocytes # (test code 0.5 See_Comment [Aut omated message] The = Monocytes #) system which generated this result tra nsmitted reference range : <=0.8. The reference r arelis was not used to int erpret this result as normal/abnormal . [place] 139731-08-21 12:25:00 Test Item Value Reference Range Interpretation Comments Eosinophils # (test code 0.2 See_Comment [A utomated message] The = Eosinophils #) system whic h generated this result tra nsmitted reference range : <=0.5. The reference r arelis was not used to int erpret this result as normal/abnormal . [facility] CentralCqbtjamOCBQODWHNV6901-05-41 12:25:00 Test Item Value Reference Range Interpretation Comments Basophils # (test code 0.1 See_Comment [Aut omated message] The = Basophils #) system which generated this result tra nsmitted reference range : <=0.2. The reference r arelis was not used to int erpret this result as normal/abnormal . [facility] CentralKgsbrlzIFGLODXYAM0922-43-87 12:25:00 Test Item Value Reference Range Interpretation Comments PTT (test code = PTT) 32.8 s 22.9-35.8 [facility] CentralKojbogfVEOTSQWMWU2187-18-45 12:25:00 Test Item Value Reference Range Interpretation Comments PT (test code = PT) 17.0 s 12.0-14.7 [facility] CentralQgfvcdrQATOMUTEKJ0167-17-43 12:25:00 Test Item Value Reference Range Interpretation Comments INR (test code = INR) 1.41 1 0.85-1.17 [facility] CentralWsefgjjIXOAOTCXWU4784-47-57 12:25:00 Test Item Value Reference Range Interpretation Comments WBC (test code = WBC) 6.6 3.7-10.4 [facility] CentralBgwrrdaHSYBTISYQR9180-83-91 12:25:00 Test Item Value Reference Range Interpretation Comments RBC (test code = RBC) 2.58 4.20-5.40 [facility] CentralBnnjoixIXAWWYKKTC5680-58-84 12:25:00 Test Item Value Reference Range Interpretation Comments Hgb (test code = Hgb) 7.6 12.0-16.0 [place] 139731-08-21 12:25:00 Test Item Value Reference Range Interpretation Comments Hct (test code = Hct) 22.8 36.0-48.0 [facility] CentralLpmpplzHRUACSVSJB7149-49-95 12:25:00 Test Item Value Reference Range Interpretation Comments MCV (test code = MCV) 88.2 80.0-98.0 [facility] CentralOweeqgsKGUGQJSGQX1635-73-98 12:25:00 Test Item Value Reference Range Interpretation Comments MCH (test code = MCH) 29.6 pg 27.0-31.0 [place] 139731-08-21 12:25:00 Test Item Value Reference Range Interpretation Comments MCHC (test code = MCHC) 33.6 32.0-36.0 [place] 139731-08-21 12:25:00 Test Item Value Reference Range Interpretation Comments RDW (test code = RDW) 15.2 11.5-14.5 [place] 139731-08-21 12:25:00 Test Item Value Reference Range Interpretation Comments Platelet (test code = Platelet) 421 133-450 [place] 139731-08-21 12:25:00 Test Item Value Reference Range Interpretation Comments MPV (test code = MPV) 8.9 7.4-10.4 [facility]2021-08-21 12:25:00 Test Item Value Reference Range Interpretation Comments Iron (test code = Iron) 30 [facility]2021-08-21 12:25:00 Test Item Value Reference Range Interpretation Comments TIBC (test code = TIBC) 252 [facility]2021-08-21 12:25:00 Test Item Value Reference Range Interpretation Comments % Satur Fe (test code = % Satur Fe) 12 [facility]2021-08-21 12:25:00 Test Item Value Reference Range Interpretation Comments Glucose Lvl (test code = Glucose Lvl) 99 70-99 [facility]2021-08-21 12:25:00 Test Item Value Reference Range Interpretation Comments BUN (test code = BUN) 7 7-22 [place] 853501-08-21 12:25:00 Test Item Value Reference Range Interpretation Comments Creatinine Lvl (test code = Creatinine 0.60 0.50-1.40 Lvl) [place] 853501-08-21 12:25:00 Test Item Value Reference Range Interpretation Comments Sodium Lvl (test code = Sodium Lvl) 148 135-145 [place] 853501-08-21 12:25:00 Test Item Value Reference Range Interpretation Comments Potassium Lvl (test code = Potassium 3.6 3.5-5.1 Lvl) [place] 853501-08-21 12:25:00 Test Item Value Reference Range Interpretation Comments Chloride Lvl (test code = Chloride Lvl) 116 95-109 [place] 853501-08-21 12:25:00 Test Item Value Reference Range Interpretation Comments CO2 (test code = CO2) 24 24-32 [place] 853501-08-21 12:25:00 Test Item Value Reference Range Interpretation Comments Calcium Lvl (test code = Calcium Lvl) 8.5 8.5-10.5 [place] 853501-08-21 12:25:00 Test Item Value Reference Range Interpretation Comments AGAP (test code = AGAP) 11.6 10.0-20.0 [place] 853501-08-21 12:25:00 Test Item Value Reference Range Interpretation Comments eGFR (test code = eGFR) 94 [place] 139731-08-21 12:25:00 Test Item Value Reference Range Interpretation Comments Segs (test code = Segs) 60.4 45.0-75.0 [place] [address]-08-21 12:25:00 Test Item Value Reference Range Interpretation Comments Lymphocytes (test code = Lymphocytes) 28.7 20.0-40.0 [place] 139731-08-21 12:25:00 Test Item Value Reference Range Interpretation Comments Monocytes (test code = Monocytes) 7.2 2.0-12.0 [place] [address]-08-21 12:25:00 Test Item Value Reference Range Interpretation Comments Eosinophils (test code = 2.8 See_Comment [A utomated message] The Eosinophils) system which ge nerated this result tra nsmitted reference range : <=4.0. The reference r arelis was not used to int erpret this result as normal/abnormal . [place] 139731-08-21 12:25:00 Test Item Value Reference Range Interpretation Comments Basophils (test code = 0.9 See_Comment [Aut omated message] The Basophils) system which ge nerated this result tra nsmitted reference range : <=1.0. The reference r arelis was not used to int erpret this result as normal/abnormal . [place] 139731-08-21 12:25:00 Test Item Value Reference Range Interpretation Comments Neutrophils # (test code = Neutrophils 4.0 1.5-8.1 #) [place] 139731-08-21 12:25:00 Test Item Value Reference Range Interpretation Comments Lymphocytes # (test code = Lymphocytes 1.9 1.0-5.5 #) [place] 139731-08-21 12:25:00 Test Item Value Reference Range Interpretation Comments Monocytes # (test code 0.5 See_Comment [Aut omated message] The = Monocytes #) system which generated this result tra nsmitted reference range : <=0.8. The reference r arelis was not used to int erpret this result as normal/abnormal . [place] 139731-08-21 12:25:00 Test Item Value Reference Range Interpretation Comments Eosinophils # (test code 0.2 See_Comment [A utomated message] The = Eosinophils #) system whic h generated this result tra nsmitted reference range : <=0.5. The reference r arelis was not used to int erpret this result as normal/abnormal . [place] 139731-08-21 12:25:00 Test Item Value Reference Range Interpretation Comments Basophils # (test code 0.1 See_Comment [Aut omated message] The = Basophils #) system which generated this result tra nsmitted reference range : <=0.2. The reference r arelis was not used to int erpret this result as normal/abnormal . [place] 139731-08-21 12:25:00 Test Item Value Reference Range Interpretation Comments PTT (test code = PTT) 32.8 s 22.9-35.8 [place] 139731-08-21 12:25:00 Test Item Value Reference Range Interpretation Comments PT (test code = PT) 17.0 s 12.0-14.7 [place] [address]-08-21 12:25:00 Test Item Value Reference Range Interpretation Comments INR (test code = INR) 1.41 1 0.85-1.17 [place] 139731-08-21 12:25:00 Test Item Value Reference Range Interpretation Comments WBC (test code = WBC) 6.6 3.7-10.4 [place] [address]-08-21 12:25:00 Test Item Value Reference Range Interpretation Comments RBC (test code = RBC) 2.58 4.20-5.40 [place] 139731-08-21 12:25:00 Test Item Value Reference Range Interpretation Comments Hgb (test code = Hgb) 7.6 12.0-16.0 [place] 139731-08-21 12:25:00 Test Item Value Reference Range Interpretation Comments Hct (test code = Hct) 22.8 36.0-48.0 [place] 139731-08-21 12:25:00 Test Item Value Reference Range Interpretation Comments MCV (test code = MCV) 88.2 80.0-98.0 [place] 139731-08-21 12:25:00 Test Item Value Reference Range Interpretation Comments MCH (test code = MCH) 29.6 pg 27.0-31.0 [place] 139731-08-21 12:25:00 Test Item Value Reference Range Interpretation Comments MCHC (test code = MCHC) 33.6 32.0-36.0 [place] 139731-08-21 12:25:00 Test Item Value Reference Range Interpretation Comments RDW (test code = RDW) 15.2 11.5-14.5 [place] 139731-08-21 12:25:00 Test Item Value Reference Range Interpretation Comments Platelet (test code = Platelet) 421 133-450 [facility] CentralM[id number] 12:25:00 Test Item Value Reference Range Interpretation Comments MPV (test code = MPV) 8.9 7.4-10.4 [facility]2021-08-21 12:25:00 Test Item Value Reference Range Interpretation Comments Iron (test code = Iron) 30 [facility]2021-08-21 12:25:00 Test Item Value Reference Range Interpretation Comments TIBC (test code = TIBC) 252 [facility]2021-08-21 12:25:00 Test Item Value Reference Range Interpretation Comments % Satur Fe (test code = % Satur Fe) 12 [facility]2021-08-21 12:25:00 Test Item Value Reference Range Interpretation Comments Glucose Lvl (test code = Glucose Lvl) 99 70-99 [facility]2021-08-21 12:25:00 Test Item Value Reference Range Interpretation Comments BUN (test code = BUN) 7 7-22 [place] 853501-08-21 12:25:00 Test Item Value Reference Range Interpretation Comments Creatinine Lvl (test code = Creatinine 0.60 0.50-1.40 Lvl) [place] 853501-08-21 12:25:00 Test Item Value Reference Range Interpretation Comments Sodium Lvl (test code = Sodium Lvl) 148 135-145 [place] 853501-08-21 12:25:00 Test Item Value Reference Range Interpretation Comments Potassium Lvl (test code = Potassium 3.6 3.5-5.1 Lvl) [place] 853501-08-21 12:25:00 Test Item Value Reference Range Interpretation Comments Chloride Lvl (test code = Chloride Lvl) 116 95-109 [place] 853501-08-21 12:25:00 Test Item Value Reference Range Interpretation Comments CO2 (test code = CO2) 24 24-32 [place] 853501-08-21 12:25:00 Test Item Value Reference Range Interpretation Comments Calcium Lvl (test code = Calcium Lvl) 8.5 8.5-10.5 [place] 853501-08-21 12:25:00 Test Item Value Reference Range Interpretation Comments AGAP (test code = AGAP) 11.6 10.0-20.0 [place] [address]-08-21 12:25:00 Test Item Value Reference Range Interpretation Comments eGFR (test code = eGFR) 94 [place] 139731-08-21 12:25:00 Test Item Value Reference Range Interpretation Comments Segs (test code = Segs) 60.4 45.0-75.0 [place] 139731-08-21 12:25:00 Test Item Value Reference Range Interpretation Comments Lymphocytes (test code = Lymphocytes) 28.7 20.0-40.0 [place] [address]-08-21 12:25:00 Test Item Value Reference Range Interpretation Comments Monocytes (test code = Monocytes) 7.2 2.0-12.0 [place] [address]-08-21 12:25:00 Test Item Value Reference Range Interpretation Comments Eosinophils (test code = 2.8 See_Comment [A utomated message] The Eosinophils) system which ge nerated this result tra nsmitted reference range : <=4.0. The reference r arelis was not used to int erpret this result as normal/abnormal . [place] 139731-08-21 12:25:00 Test Item Value Reference Range Interpretation Comments Basophils (test code = 0.9 See_Comment [Aut omated message] The Basophils) system which ge nerated this result tra nsmitted reference range : <=1.0. The reference r arelis was not used to int erpret this result as normal/abnormal . [place] 139731-08-21 12:25:00 Test Item Value Reference Range Interpretation Comments Neutrophils # (test code = Neutrophils 4.0 1.5-8.1 #) [facility] [id number] 12:25:00 Test Item Value Reference Range Interpretation Comments Lymphocytes # (test code = Lymphocytes 1.9 1.0-5.5 #) [place] 1397[address]-08-21 12:25:00 Test Item Value Reference Range Interpretation Comments Monocytes # (test code 0.5 See_Comment [Aut omated message] The = Monocytes #) system which generated this result tra nsmitted reference range : <=0.8. The reference r arelis was not used to int erpret this result as normal/abnormal . [facility] CentralFierpkuGIMGGTQKZU8397-53-55 12:25:00 Test Item Value Reference Range Interpretation Comments Eosinophils # (test code 0.2 See_Comment [A utomated message] The = Eosinophils #) system whic h generated this result tra nsmitted reference range : <=0.5. The reference r arelis was not used to int erpret this result as normal/abnormal . [facility] CentralDlnijfsOEBIKAFMLM2769-54-72 12:25:00 Test Item Value Reference Range Interpretation Comments Basophils # (test code 0.1 See_Comment [Aut omated message] The = Basophils #) system which generated this result tra nsmitted reference range : <=0.2. The reference r arelis was not used to int erpret this result as normal/abnormal . [place] 139731-08-21 12:25:00 Test Item Value Reference Range Interpretation Comments PTT (test code = PTT) 32.8 s 22.9-35.8 [place] 139731-08-21 12:25:00 Test Item Value Reference Range Interpretation Comments PT (test code = PT) 17.0 s 12.0-14.7 [place] 139731-08-21 12:25:00 Test Item Value Reference Range Interpretation Comments INR (test code = INR) 1.41 1 0.85-1.17 [facility] CentralO[id number] 12:25:00 Test Item Value Reference Range Interpretation Comments WBC (test code = WBC) 6.6 3.7-10.4 [facility] CentralYcelairOXTRNXCDHP7382-02-71 12:25:00 Test Item Value Reference Range Interpretation Comments RBC (test code = RBC) 2.58 4.20-5.40 [facility] CentralGcazgrpCHQEDAAFNI4005-35-35 12:25:00 Test Item Value Reference Range Interpretation Comments Hgb (test code = Hgb) 7.6 12.0-16.0 [facility] CentralFgjtxolNUIIUYWITQ5254-23-58 12:25:00 Test Item Value Reference Range Interpretation Comments Hct (test code = Hct) 22.8 36.0-48.0 [facility] CentralEvomqdvZSEYMPFBHY8033-32-53 12:25:00 Test Item Value Reference Range Interpretation Comments MCV (test code = MCV) 88.2 80.0-98.0 [facility] CentralHtvwjzmNQKPQNLWOZ6342-69-49 12:25:00 Test Item Value Reference Range Interpretation Comments MCH (test code = MCH) 29.6 pg 27.0-31.0 [facility] CentralBkdjcfcDUZQOUGNNM6841-28-36 12:25:00 Test Item Value Reference Range Interpretation Comments MCHC (test code = MCHC) 33.6 32.0-36.0 [facility] CentralCqytyktDPRCFUNRGF3730-28-22 12:25:00 Test Item Value Reference Range Interpretation Comments RDW (test code = RDW) 15.2 11.5-14.5 [facility] CentralWqehsouHLBZWUBIOF4458-59-67 12:25:00 Test Item Value Reference Range Interpretation Comments Platelet (test code = Platelet) 421 133-450 [facility] CentralRgryixeUBBMVRTCGE1842-08-64 12:25:00 Test Item Value Reference Range Interpretation Comments MPV (test code = MPV) 8.9 7.4-10.4 [facility]2021-08-21 12:25:00 Test Item Value Reference Range Interpretation Comments Iron (test code = Iron) 30 [facility]2021-08-21 12:25:00 Test Item Value Reference Range Interpretation Comments TIBC (test code = TIBC) 252 [facility]2021-08-21 12:25:00 Test Item Value Reference Range Interpretation Comments % Satur Fe (test code = % Satur Fe) 12 [place] 853501-08-21 12:25:00 Test Item Value Reference Range Interpretation Comments Glucose Lvl (test code = Glucose Lvl) 99 70-99 [place] 853501-08-21 12:25:00 Test Item Value Reference Range Interpretation Comments BUN (test code = BUN) 7 7-22 [place] 853501-08-21 12:25:00 Test Item Value Reference Range Interpretation Comments Creatinine Lvl (test code = Creatinine 0.60 0.50-1.40 Lvl) [place] 853501-08-21 12:25:00 Test Item Value Reference Range Interpretation Comments Sodium Lvl (test code = Sodium Lvl) 148 135-145 [place] 853501-08-21 12:25:00 Test Item Value Reference Range Interpretation Comments Potassium Lvl (test code = Potassium 3.6 3.5-5.1 Lvl) [place] 853501-08-21 12:25:00 Test Item Value Reference Range Interpretation Comments Chloride Lvl (test code = Chloride Lvl) 116 95-109 [place] 853501-08-21 12:25:00 Test Item Value Reference Range Interpretation Comments CO2 (test code = CO2) 24 24-32 [place] 853501-08-21 12:25:00 Test Item Value Reference Range Interpretation Comments Calcium Lvl (test code = Calcium Lvl) 8.5 8.5-10.5 [place] 853501-08-21 12:25:00 Test Item Value Reference Range Interpretation Comments AGAP (test code = AGAP) 11.6 10.0-20.0 [place] 853501-08-21 12:25:00 Test Item Value Reference Range Interpretation Comments eGFR (test code = eGFR) 94 [place] 139731-08-21 12:25:00 Test Item Value Reference Range Interpretation Comments Segs (test code = Segs) 60.4 45.0-75.0 [place] 139731-08-21 12:25:00 Test Item Value Reference Range Interpretation Comments Lymphocytes (test code = Lymphocytes) 28.7 20.0-40.0 [place] [address]-08-21 12:25:00 Test Item Value Reference Range Interpretation Comments Monocytes (test code = Monocytes) 7.2 2.0-12.0 [place] 139731-08-21 12:25:00 Test Item Value Reference Range Interpretation Comments Eosinophils (test code = 2.8 See_Comment [A utomated message] The Eosinophils) system which ge nerated this result tra nsmitted reference range : <=4.0. The reference r arelis was not used to int erpret this result as normal/abnormal . [place] 139731-08-21 12:25:00 Test Item Value Reference Range Interpretation Comments Basophils (test code = 0.9 See_Comment [Aut omated message] The Basophils) system which ge nerated this result tra nsmitted reference range : <=1.0. The reference r arelis was not used to int erpret this result as normal/abnormal . [place] 139731-08-21 12:25:00 Test Item Value Reference Range Interpretation Comments Neutrophils # (test code = Neutrophils 4.0 1.5-8.1 #) [place] 139731-08-21 12:25:00 Test Item Value Reference Range Interpretation Comments Lymphocytes # (test code = Lymphocytes 1.9 1.0-5.5 #) [place] 1397[address]-08-21 12:25:00 Test Item Value Reference Range Interpretation Comments Monocytes # (test code 0.5 See_Comment [Aut omated message] The = Monocytes #) system which generated this result tra nsmitted reference range : <=0.8. The reference r arelis was not used to int erpret this result as normal/abnormal . [place] 139731-08-21 12:25:00 Test Item Value Reference Range Interpretation Comments Eosinophils # (test code 0.2 See_Comment [A utomated message] The = Eosinophils #) system whic h generated this result tra nsmitted reference range : <=0.5. The reference r arelis was not used to int erpret this result as normal/abnormal . [place] 139731-08-21 12:25:00 Test Item Value Reference Range Interpretation Comments Basophils # (test code 0.1 See_Comment [Aut omated message] The = Basophils #) system which generated this result tra nsmitted reference range : <=0.2. The reference r arelis was not used to int erpret this result as normal/abnormal . [place] 139731-08-21 12:25:00 Test Item Value Reference Range Interpretation Comments PTT (test code = PTT) 32.8 s 22.9-35.8 [place] 139731-08-21 12:25:00 Test Item Value Reference Range Interpretation Comments PT (test code = PT) 17.0 s 12.0-14.7 [place] 139731-08-21 12:25:00 Test Item Value Reference Range Interpretation Comments INR (test code = INR) 1.41 1 0.85-1.17 [place] 1397[address]-08-21 12:25:00 Test Item Value Reference Range Interpretation Comments WBC (test code = WBC) 6.6 3.7-10.4 [place] 139731-08-21 12:25:00 Test Item Value Reference Range Interpretation Comments RBC (test code = RBC) 2.58 4.20-5.40 [place] 1397[address]-08-21 12:25:00 Test Item Value Reference Range Interpretation Comments Hgb (test code = Hgb) 7.6 12.0-16.0 [place] 139731-08-21 12:25:00 Test Item Value Reference Range Interpretation Comments Hct (test code = Hct) 22.8 36.0-48.0 [place] 1397[address]-08-21 12:25:00 Test Item Value Reference Range Interpretation Comments MCV (test code = MCV) 88.2 80.0-98.0 [place] [address]-08-21 12:25:00 Test Item Value Reference Range Interpretation Comments MCH (test code = MCH) 29.6 pg 27.0-31.0 [place] 139731-08-21 12:25:00 Test Item Value Reference Range Interpretation Comments MCHC (test code = MCHC) 33.6 32.0-36.0 [place] 1397[address]-08-21 12:25:00 Test Item Value Reference Range Interpretation Comments RDW (test code = RDW) 15.2 11.5-14.5 [place] 1397[address]-08-21 12:25:00 Test Item Value Reference Range Interpretation Comments Platelet (test code = Platelet) 421 133-450 [id number] 12:25:00 Test Item Value Reference Range Interpretation Comments MPV (test code = MPV) 8.9 7.4-10.4 [facility]2021-08-21 12:25:00 Test Item Value Reference Range Interpretation Comments Iron (test code = Iron) 30 [facility]2021-08-21 12:25:00 Test Item Value Reference Range Interpretation Comments TIBC (test code = TIBC) 252 [facility]2021-08-21 12:25:00 Test Item Value Reference Range Interpretation Comments % Satur Fe (test code = % Satur Fe) 12 [facility]2021-08-21 12:25:00 Test Item Value Reference Range Interpretation Comments Glucose Lvl (test code = Glucose Lvl) 99 70-99 [facility]2021-08-21 12:25:00 Test Item Value Reference Range Interpretation Comments BUN (test code = BUN) 7 7-22 [place] 853501-08-21 12:25:00 Test Item Value Reference Range Interpretation Comments Creatinine Lvl (test code = Creatinine 0.60 0.50-1.40 Lvl) [facility]2021-08-21 12:25:00 Test Item Value Reference Range Interpretation Comments Sodium Lvl (test code = Sodium Lvl) 148 135-145 [place] 853501-08-21 12:25:00 Test Item Value Reference Range Interpretation Comments Potassium Lvl (test code = Potassium 3.6 3.5-5.1 Lvl) [facility]2021-08-21 12:25:00 Test Item Value Reference Range Interpretation Comments Chloride Lvl (test code = Chloride Lvl) 116 95-109 [place] 853501-08-21 12:25:00 Test Item Value Reference Range Interpretation Comments CO2 (test code = CO2) 24 24-32 [place] 853501-08-21 12:25:00 Test Item Value Reference Range Interpretation Comments Calcium Lvl (test code = Calcium Lvl) 8.5 8.5-10.5 [facility]2021-08-21 12:25:00 Test Item Value Reference Range Interpretation Comments AGAP (test code = AGAP) 11.6 10.0-20.0 [facility]2021-08-21 12:25:00 Test Item Value Reference Range Interpretation Comments eGFR (test code = eGFR) 94 [place] 139731-08-21 12:25:00 Test Item Value Reference Range Interpretation Comments Segs (test code = Segs) 60.4 45.0-75.0 [place] 139731-08-21 12:25:00 Test Item Value Reference Range Interpretation Comments Lymphocytes (test code = Lymphocytes) 28.7 20.0-40.0 [place] 139731-08-21 12:25:00 Test Item Value Reference Range Interpretation Comments Monocytes (test code = Monocytes) 7.2 2.0-12.0 [place] 139731-08-21 12:25:00 Test Item Value Reference Range Interpretation Comments Eosinophils (test code = 2.8 See_Comment [A utomated message] The Eosinophils) system which ge nerated this result tra nsmitted reference range : <=4.0. The reference r arelis was not used to int erpret this result as normal/abnormal . [place] 1397[address]-08-21 12:25:00 Test Item Value Reference Range Interpretation Comments Basophils (test code = 0.9 See_Comment [Aut omated message] The Basophils) system which ge nerated this result tra nsmitted reference range : <=1.0. The reference r arelis was not used to int erpret this result as normal/abnormal . [place] 139731-08-21 12:25:00 Test Item Value Reference Range Interpretation Comments Neutrophils # (test code = Neutrophils 4.0 1.5-8.1 #) [place] 1397[address]-08-21 12:25:00 Test Item Value Reference Range Interpretation Comments Lymphocytes # (test code = Lymphocytes 1.9 1.0-5.5 #) [place] [address]-08-21 12:25:00 Test Item Value Reference Range Interpretation Comments Monocytes # (test code 0.5 See_Comment [Aut omated message] The = Monocytes #) system which generated this result tra nsmitted reference range : <=0.8. The reference r arelis was not used to int erpret this result as normal/abnormal . [place] 1397[address]-08-21 12:25:00 Test Item Value Reference Range Interpretation Comments Eosinophils # (test code 0.2 See_Comment [A utomated message] The = Eosinophils #) system whic h generated this result tra nsmitted reference range : <=0.5. The reference r arelis was not used to int erpret this result as normal/abnormal . [id number] 12:25:00 Test Item Value Reference Range Interpretation Comments Basophils # (test code 0.1 See_Comment [Aut omated message] The = Basophils #) system which generated this result tra nsmitted reference range : <=0.2. The reference r arelis was not used to int erpret this result as normal/abnormal . [facility] [id number] 12:25:00 Test Item Value Reference Range Interpretation Comments PTT (test code = PTT) 32.8 s 22.9-35.8 [place] 1397[address]-08-21 12:25:00 Test Item Value Reference Range Interpretation Comments PT (test code = PT) 17.0 s 12.0-14.7 [place] 139731-08-21 12:25:00 Test Item Value Reference Range Interpretation Comments INR (test code = INR) 1.41 1 0.85-1.17 [place] 139731-08-21 12:25:00 Test Item Value Reference Range Interpretation Comments WBC (test code = WBC) 6.6 3.7-10.4 [place] 1397[address]-08-21 12:25:00 Test Item Value Reference Range Interpretation Comments RBC (test code = RBC) 2.58 4.20-5.40 [place] 1397[address]-08-21 12:25:00 Test Item Value Reference Range Interpretation Comments Hgb (test code = Hgb) 7.6 12.0-16.0 [place] 139731-08-21 12:25:00 Test Item Value Reference Range Interpretation Comments Hct (test code = Hct) 22.8 36.0-48.0 [place] 139731-08-21 12:25:00 Test Item Value Reference Range Interpretation Comments MCV (test code = MCV) 88.2 80.0-98.0 [place] 139731-08-21 12:25:00 Test Item Value Reference Range Interpretation Comments MCH (test code = MCH) 29.6 pg 27.0-31.0 [place] 139731-08-21 12:25:00 Test Item Value Reference Range Interpretation Comments MCHC (test code = MCHC) 33.6 32.0-36.0 [place] 139731-08-21 12:25:00 Test Item Value Reference Range Interpretation Comments RDW (test code = RDW) 15.2 11.5-14.5 [place] 1397[address]-08-21 12:25:00 Test Item Value Reference Range Interpretation Comments Platelet (test code = Platelet) 421 133-450 [place] 139731-08-21 12:25:00 Test Item Value Reference Range Interpretation Comments MPV (test code = MPV) 8.9 7.4-10.4 [facility]2021-08-21 12:25:00 Test Item Value Reference Range Interpretation Comments Iron (test code = Iron) 30 [place] 693571-08-21 12:25:00 Test Item Value Reference Range Interpretation Comments TIBC (test code = TIBC) 252 [place] 693571-08-21 12:25:00 Test Item Value Reference Range Interpretation Comments % Satur Fe (test code = % Satur Fe) 12 [place] 853501-08-21 12:25:00 Test Item Value Reference Range Interpretation Comments Glucose Lvl (test code = Glucose Lvl) 99 70-99 [place] 853501-08-21 12:25:00 Test Item Value Reference Range Interpretation Comments BUN (test code = BUN) 7 7-22 [place] 853501-08-21 12:25:00 Test Item Value Reference Range Interpretation Comments Creatinine Lvl (test code = Creatinine 0.60 0.50-1.40 Lvl) [place]3501-08-21 12:25:00 Test Item Value Reference Range Interpretation Comments Sodium Lvl (test code = Sodium Lvl) 148 135-145 [place] 853501-08-21 12:25:00 Test Item Value Reference Range Interpretation Comments Potassium Lvl (test code = Potassium 3.6 3.5-5.1 Lvl) [place] 853501-08-21 12:25:00 Test Item Value Reference Range Interpretation Comments Chloride Lvl (test code = Chloride Lvl) 116 95-109 [place] 853501-08-21 12:25:00 Test Item Value Reference Range Interpretation Comments CO2 (test code = CO2) 24 24-32 [place] 853501-08-21 12:25:00 Test Item Value Reference Range Interpretation Comments Calcium Lvl (test code = Calcium Lvl) 8.5 8.5-10.5 [place] 853501-08-21 12:25:00 Test Item Value Reference Range Interpretation Comments AGAP (test code = AGAP) 11.6 10.0-20.0 [place] 853501-08-21 12:25:00 Test Item Value Reference Range Interpretation Comments eGFR (test code = eGFR) 94 [place] 139731-08-21 12:25:00 Test Item Value Reference Range Interpretation Comments Segs (test code = Segs) 60.4 45.0-75.0 [place] 139731-08-21 12:25:00 Test Item Value Reference Range Interpretation Comments Lymphocytes (test code = Lymphocytes) 28.7 20.0-40.0 [place] 139731-08-21 12:25:00 Test Item Value Reference Range Interpretation Comments Monocytes (test code = Monocytes) 7.2 2.0-12.0 [place] 139731-08-21 12:25:00 Test Item Value Reference Range Interpretation Comments Eosinophils (test code = 2.8 See_Comment [A utomated message] The Eosinophils) system which ge nerated this result tra nsmitted reference range : <=4.0. The reference r arelis was not used to int erpret this result as normal/abnormal . [place] 139731-08-21 12:25:00 Test Item Value Reference Range Interpretation Comments Basophils (test code = 0.9 See_Comment [Aut omated message] The Basophils) system which ge nerated this result tra nsmitted reference range : <=1.0. The reference r arelis was not used to int erpret this result as normal/abnormal . [place] 139731-08-21 12:25:00 Test Item Value Reference Range Interpretation Comments Neutrophils # (test code = Neutrophils 4.0 1.5-8.1 #) [place] 1397[address]-08-21 12:25:00 Test Item Value Reference Range Interpretation Comments Lymphocytes # (test code = Lymphocytes 1.9 1.0-5.5 #) [place] [address]-08-21 12:25:00 Test Item Value Reference Range Interpretation Comments Monocytes # (test code 0.5 See_Comment [Aut omated message] The = Monocytes #) system which generated this result tra nsmitted reference range : <=0.8. The reference r arelis was not used to int erpret this result as normal/abnormal . [place] 1397[address]-08-21 12:25:00 Test Item Value Reference Range Interpretation Comments Eosinophils # (test code 0.2 See_Comment [A utomated message] The = Eosinophils #) system whic h generated this result tra nsmitted reference range : <=0.5. The reference r arelis was not used to int erpret this result as normal/abnormal . [place] 1397[address]-08-21 12:25:00 Test Item Value Reference Range Interpretation Comments Basophils # (test code 0.1 See_Comment [Aut omated message] The = Basophils #) system which generated this result tra nsmitted reference range : <=0.2. The reference r arelis was not used to int erpret this result as normal/abnormal . [place] 1397[address]-08-21 12:25:00 Test Item Value Reference Range Interpretation Comments PTT (test code = PTT) 32.8 s 22.9-35.8 [place] [address]-08-21 12:25:00 Test Item Value Reference Range Interpretation Comments PT (test code = PT) 17.0 s 12.0-14.7 [place] 139731-08-21 12:25:00 Test Item Value Reference Range Interpretation Comments INR (test code = INR) 1.41 1 0.85-1.17 [place] [address]-08-21 12:25:00 Test Item Value Reference Range Interpretation Comments WBC (test code = WBC) 6.6 3.7-10.4 [place] 139731-08-21 12:25:00 Test Item Value Reference Range Interpretation Comments RBC (test code = RBC) 2.58 4.20-5.40 [place] 139731-08-21 12:25:00 Test Item Value Reference Range Interpretation Comments Hgb (test code = Hgb) 7.6 12.0-16.0 [place] 139731-08-21 12:25:00 Test Item Value Reference Range Interpretation Comments Hct (test code = Hct) 22.8 36.0-48.0 [id number] 12:25:00 Test Item Value Reference Range Interpretation Comments MCV (test code = MCV) 88.2 80.0-98.0 [place] 1397[address]-08-21 12:25:00 Test Item Value Reference Range Interpretation Comments MCH (test code = MCH) 29.6 pg 27.0-31.0 [place] 139731-08-21 12:25:00 Test Item Value Reference Range Interpretation Comments MCHC (test code = MCHC) 33.6 32.0-36.0 [facility] [id number] 12:25:00 Test Item Value Reference Range Interpretation Comments RDW (test code = RDW) 15.2 11.5-14.5 [place] 1397[address]-08-21 12:25:00 Test Item Value Reference Range Interpretation Comments Platelet (test code = Platelet) 421 133-450 [facility] [id number] 12:25:00 Test Item Value Reference Range Interpretation Comments MPV (test code = MPV) 8.9 7.4-10.4 [facility]2021-08-21 12:25:00 Test Item Value Reference Range Interpretation Comments Iron (test code = Iron) 30 [facility]2021-08-21 12:25:00 Test Item Value Reference Range Interpretation Comments TIBC (test code = TIBC) 252 [facility]2021-08-21 12:25:00 Test Item Value Reference Range Interpretation Comments % Satur Fe (test code = % Satur Fe) 12 [facility]2021-08-21 12:25:00 Test Item Value Reference Range Interpretation Comments Glucose Lvl (test code = Glucose Lvl) 99 70-99 [facility]2021-08-21 12:25:00 Test Item Value Reference Range Interpretation Comments BUN (test code = BUN) 7 7-22 [place] 853501-08-21 12:25:00 Test Item Value Reference Range Interpretation Comments Creatinine Lvl (test code = Creatinine 0.60 0.50-1.40 Lvl) [place] 853501-08-21 12:25:00 Test Item Value Reference Range Interpretation Comments Sodium Lvl (test code = Sodium Lvl) 148 135-145 [place] 853501-08-21 12:25:00 Test Item Value Reference Range Interpretation Comments Potassium Lvl (test code = Potassium 3.6 3.5-5.1 Lvl) [place] 853501-08-21 12:25:00 Test Item Value Reference Range Interpretation Comments Chloride Lvl (test code = Chloride Lvl) 116 95-109 [place] 853501-08-21 12:25:00 Test Item Value Reference Range Interpretation Comments CO2 (test code = CO2) 24 24-32 [place] 853501-08-21 12:25:00 Test Item Value Reference Range Interpretation Comments Calcium Lvl (test code = Calcium Lvl) 8.5 8.5-10.5 [place] 853501-08-21 12:25:00 Test Item Value Reference Range Interpretation Comments AGAP (test code = AGAP) 11.6 10.0-20.0 [place] 853501-08-21 12:25:00 Test Item Value Reference Range Interpretation Comments eGFR (test code = eGFR) 94 [place] 139731-08-21 12:25:00 Test Item Value Reference Range Interpretation Comments Segs (test code = Segs) 60.4 45.0-75.0 [place] 139731-08-21 12:25:00 Test Item Value Reference Range Interpretation Comments Lymphocytes (test code = Lymphocytes) 28.7 20.0-40.0 [place] [address]-08-21 12:25:00 Test Item Value Reference Range Interpretation Comments Monocytes (test code = Monocytes) 7.2 2.0-12.0 [place] [address]-08-21 12:25:00 Test Item Value Reference Range Interpretation Comments Eosinophils (test code = 2.8 See_Comment [A utomated message] The Eosinophils) system which ge nerated this result tra nsmitted reference range : <=4.0. The reference r arelis was not used to int erpret this result as normal/abnormal . [facility] [id number] 12:25:00 Test Item Value Reference Range Interpretation Comments Basophils (test code = 0.9 See_Comment [Aut omated message] The Basophils) system which ge nerated this result tra nsmitted reference range : <=1.0. The reference r arelis was not used to int erpret this result as normal/abnormal . [facility] [id number] 12:25:00 Test Item Value Reference Range Interpretation Comments Neutrophils # (test code = Neutrophils 4.0 1.5-8.1 #) [facility] [id number] 12:25:00 Test Item Value Reference Range Interpretation Comments Lymphocytes # (test code = Lymphocytes 1.9 1.0-5.5 #) [facility] [id number] 12:25:00 Test Item Value Reference Range Interpretation Comments Monocytes # (test code 0.5 See_Comment [Aut omated message] The = Monocytes #) system which generated this result tra nsmitted reference range : <=0.8. The reference r arelis was not used to int erpret this result as normal/abnormal . [facility] [id number] 12:25:00 Test Item Value Reference Range Interpretation Comments Eosinophils # (test code 0.2 See_Comment [A utomated message] The = Eosinophils #) system whic h generated this result tra nsmitted reference range : <=0.5. The reference r arelis was not used to int erpret this result as normal/abnormal . [facility] [id number] 12:25:00 Test Item Value Reference Range Interpretation Comments Basophils # (test code 0.1 See_Comment [Aut omated message] The = Basophils #) system which generated this result tra nsmitted reference range : <=0.2. The reference r arelis was not used to int erpret this result as normal/abnormal . [facility] [id number] 12:25:00 Test Item Value Reference Range Interpretation Comments PTT (test code = PTT) 32.8 s 22.9-35.8 [place] [address]731-08-21 12:25:00 Test Item Value Reference Range Interpretation Comments PT (test code = PT) 17.0 s 12.0-14.7 [place] 139731-08-21 12:25:00 Test Item Value Reference Range Interpretation Comments INR (test code = INR) 1.41 1 0.85-1.17 [place] 139731-08-21 12:25:00 Test Item Value Reference Range Interpretation Comments WBC (test code = WBC) 6.6 3.7-10.4 [place] 139731-08-21 12:25:00 Test Item Value Reference Range Interpretation Comments RBC (test code = RBC) 2.58 4.20-5.40 [place] 1397[address]-08-21 12:25:00 Test Item Value Reference Range Interpretation Comments Hgb (test code = Hgb) 7.6 12.0-16.0 [place] [address]-08-21 12:25:00 Test Item Value Reference Range Interpretation Comments Hct (test code = Hct) 22.8 36.0-48.0 [facility]2021-08-21 12:25:00 Test Item Value Reference Range Interpretation Comments Iron (test code = Iron) 30 [facility]2021-08-21 12:25:00 Test Item Value Reference Range Interpretation Comments TIBC (test code = TIBC) 252 [facility]2021-08-21 12:25:00 Test Item Value Reference Range Interpretation Comments % Satur Fe (test code = % Satur Fe) 12 [facility]2021-08-21 12:25:00 Test Item Value Reference Range Interpretation Comments Glucose Lvl (test code = Glucose Lvl) 99 70-99 [facility]2021-08-21 12:25:00 Test Item Value Reference Range Interpretation Comments BUN (test code = BUN) 7 7-22 [place] 139731-08-21 12:25:00 Test Item Value Reference Range Interpretation Comments MCV (test code = MCV) 88.2 80.0-98.0 [place] 853501-08-21 12:25:00 Test Item Value Reference Range Interpretation Comments Creatinine Lvl (test code = Creatinine 0.60 0.50-1.40 Lvl) [facility]2021-08-21 12:25:00 Test Item Value Reference Range Interpretation Comments Sodium Lvl (test code = Sodium Lvl) 148 135-145 [place] 853501-08-21 12:25:00 Test Item Value Reference Range Interpretation Comments Potassium Lvl (test code = Potassium 3.6 3.5-5.1 Lvl) [place] 853501-08-21 12:25:00 Test Item Value Reference Range Interpretation Comments Chloride Lvl (test code = Chloride Lvl) 116 95-109 [place] 853501-08-21 12:25:00 Test Item Value Reference Range Interpretation Comments CO2 (test code = CO2) 24 24-32 [place] 853501-08-21 12:25:00 Test Item Value Reference Range Interpretation Comments Calcium Lvl (test code = Calcium Lvl) 8.5 8.5-10.5 [place] 853501-08-21 12:25:00 Test Item Value Reference Range Interpretation Comments AGAP (test code = AGAP) 11.6 10.0-20.0 [place] 853501-08-21 12:25:00 Test Item Value Reference Range Interpretation Comments eGFR (test code = eGFR) 94 [place] 139731-08-21 12:25:00 Test Item Value Reference Range Interpretation Comments Segs (test code = Segs) 60.4 45.0-75.0 [place] [address]-08-21 12:25:00 Test Item Value Reference Range Interpretation Comments Lymphocytes (test code = Lymphocytes) 28.7 20.0-40.0 [place] [address]-08-21 12:25:00 Test Item Value Reference Range Interpretation Comments MCH (test code = MCH) 29.6 pg 27.0-31.0 [place] [address]-08-21 12:25:00 Test Item Value Reference Range Interpretation Comments Monocytes (test code = Monocytes) 7.2 2.0-12.0 [place] [address]-08-21 12:25:00 Test Item Value Reference Range Interpretation Comments Eosinophils (test code = 2.8 See_Comment [A utomated message] The Eosinophils) system which ge nerated this result tra nsmitted reference range : <=4.0. The reference r arelis was not used to int erpret this result as normal/abnormal . [place] 139731-08-21 12:25:00 Test Item Value Reference Range Interpretation Comments Basophils (test code = 0.9 See_Comment [Aut omated message] The Basophils) system which ge nerated this result tra nsmitted reference range : <=1.0. The reference r arelis was not used to int erpret this result as normal/abnormal . [facility]EuiprrkVESKWXDUYB2883-25-80 12:25:00 Test Item Value Reference Range Interpretation Comments Neutrophils # (test code = Neutrophils 4.0 1.5-8.1 #) [facility] CentralAofcqdeJYCCGMADWU8477-87-39 12:25:00 Test Item Value Reference Range Interpretation Comments Lymphocytes # (test code = Lymphocytes 1.9 1.0-5.5 #) [facility] CentralThujqjgAIATUXIQDD7988-36-81 12:25:00 Test Item Value Reference Range Interpretation Comments Monocytes # (test code 0.5 See_Comment [Aut omated message] The = Monocytes #) system which generated this result tra nsmitted reference range : <=0.8. The reference r arelis was not used to int erpret this result as normal/abnormal . [facility] CentralSxaqddtFMUKNEECNX6830-76-93 12:25:00 Test Item Value Reference Range Interpretation Comments Eosinophils # (test code 0.2 See_Comment [A utomated message] The = Eosinophils #) system whic h generated this result tra nsmitted reference range : <=0.5. The reference r arelis was not used to int erpret this result as normal/abnormal . [facility] CentralBcuqppmJEQXDJTGSX1214-12-02 12:25:00 Test Item Value Reference Range Interpretation Comments Basophils # (test code 0.1 See_Comment [Aut omated message] The = Basophils #) system which generated this result tra nsmitted reference range : <=0.2. The reference r arelis was not used to int erpret this result as normal/abnormal . [facility] CentralEkyhltkKSCBGANOBI6103-28-71 12:25:00 Test Item Value Reference Range Interpretation Comments PTT (test code = PTT) 32.8 s 22.9-35.8 [place] 139731-08-21 12:25:00 Test Item Value Reference Range Interpretation Comments PT (test code = PT) 17.0 s 12.0-14.7 [place] 139731-08-21 12:25:00 Test Item Value Reference Range Interpretation Comments MCHC (test code = MCHC) 33.6 32.0-36.0 [facility] CentralFwyeujoUCJDSQKMTU5967-50-19 12:25:00 Test Item Value Reference Range Interpretation Comments INR (test code = INR) 1.41 1 0.85-1.17 [facility] CentralLhlevqhSNHIOQWGDF6939-66-07 12:25:00 Test Item Value Reference Range Interpretation Comments WBC (test code = WBC) 6.6 3.7-10.4 [facility] CentralXwytmfjHHGZTQDCCZ2839-07-61 12:25:00 Test Item Value Reference Range Interpretation Comments RBC (test code = RBC) 2.58 4.20-5.40 [facility] CentralSotraluBVMVHRTIEI7671-86-25 12:25:00 Test Item Value Reference Range Interpretation Comments Hgb (test code = Hgb) 7.6 12.0-16.0 [place] 139731-08-21 12:25:00 Test Item Value Reference Range Interpretation Comments Hct (test code = Hct) 22.8 36.0-48.0 [facility] CentralSajwsyhZRAIWQANZI4790-40-01 12:25:00 Test Item Value Reference Range Interpretation Comments MCV (test code = MCV) 88.2 80.0-98.0 [facility] CentralVrrcvewDLPAHYABVD6942-74-69 12:25:00 Test Item Value Reference Range Interpretation Comments MCH (test code = MCH) 29.6 pg 27.0-31.0 [facility] CentralOcmixgjVZTWUGGNJO3020-00-54 12:25:00 Test Item Value Reference Range Interpretation Comments MCHC (test code = MCHC) 33.6 32.0-36.0 [facility] CentralNtrbybpSOQRVKQBPC0500-35-37 12:25:00 Test Item Value Reference Range Interpretation Comments RDW (test code = RDW) 15.2 11.5-14.5 [place] 139731-08-21 12:25:00 Test Item Value Reference Range Interpretation Comments Platelet (test code = Platelet) 421 133-450 [facility] CentralUbrjvqeSJVCFBHOOJ6710-14-63 12:25:00 Test Item Value Reference Range Interpretation Comments RDW (test code = RDW) 15.2 11.5-14.5 [facility] CentralInxdxewDLQJJPQZXH9733-19-62 12:25:00 Test Item Value Reference Range Interpretation Comments MPV (test code = MPV) 8.9 7.4-10.4 [place] 139731-08-21 12:25:00 Test Item Value Reference Range Interpretation Comments Platelet (test code = Platelet) 421 133-450 [facility] CentralCzwogpgJNIJKGUNDK5390-62-54 12:25:00 Test Item Value Reference Range Interpretation Comments MPV (test code = MPV) 8.9 7.4-10.4 [place] 693571-08-21 12:25:00 Test Item Value Reference Range Interpretation Comments Iron (test code = Iron) 30 [place] 693571-08-21 12:25:00 Test Item Value Reference Range Interpretation Comments TIBC (test code = TIBC) 252 [facility]2021-08-21 12:25:00 Test Item Value Reference Range Interpretation Comments % Satur Fe (test code = % Satur Fe) 12 [facility]2021-08-21 12:25:00 Test Item Value Reference Range Interpretation Comments Glucose Lvl (test code = Glucose Lvl) 99 70-99 [place] 853501-08-21 12:25:00 Test Item Value Reference Range Interpretation Comments BUN (test code = BUN) 7 7-22 [place] 853501-08-21 12:25:00 Test Item Value Reference Range Interpretation Comments Creatinine Lvl (test code = Creatinine 0.60 0.50-1.40 Lvl) [place] 853501-08-21 12:25:00 Test Item Value Reference Range Interpretation Comments Sodium Lvl (test code = Sodium Lvl) 148 135-145 [place] 853501-08-21 12:25:00 Test Item Value Reference Range Interpretation Comments Potassium Lvl (test code = Potassium 3.6 3.5-5.1 Lvl) [place] 853501-08-21 12:25:00 Test Item Value Reference Range Interpretation Comments Chloride Lvl (test code = Chloride Lvl) 116 95-109 [place] 853501-08-21 12:25:00 Test Item Value Reference Range Interpretation Comments CO2 (test code = CO2) 24 24-32 [place] 853501-08-21 12:25:00 Test Item Value Reference Range Interpretation Comments Calcium Lvl (test code = Calcium Lvl) 8.5 8.5-10.5 [place] 853501-08-21 12:25:00 Test Item Value Reference Range Interpretation Comments AGAP (test code = AGAP) 11.6 10.0-20.0 [facility]2021-08-21 12:25:00 Test Item Value Reference Range Interpretation Comments eGFR (test code = eGFR) 94 [facility] CentralLitviizFRWOYKJDNC2373-47-44 12:25:00 Test Item Value Reference Range Interpretation Comments Segs (test code = Segs) 60.4 45.0-75.0 [facility] CentralUjolhicSDWCDVNUKH9219-48-84 12:25:00 Test Item Value Reference Range Interpretation Comments Lymphocytes (test code = Lymphocytes) 28.7 20.0-40.0 [place] 139731-08-21 12:25:00 Test Item Value Reference Range Interpretation Comments Monocytes (test code = Monocytes) 7.2 2.0-12.0 [facility] CentralLgceckxBGNBOQOMHD8716-36-96 12:25:00 Test Item Value Reference Range Interpretation Comments Eosinophils (test code = 2.8 See_Comment [A utomated message] The Eosinophils) system which ge nerated this result tra nsmitted reference range : <=4.0. The reference r arelis was not used to int erpret this result as normal/abnormal . [facility] CentralXtvpwrlYMCPMXUONL3146-70-29 12:25:00 Test Item Value Reference Range Interpretation Comments Basophils (test code = 0.9 See_Comment [Aut omated message] The Basophils) system which ge nerated this result tra nsmitted reference range : <=1.0. The reference r arelis was not used to int erpret this result as normal/abnormal . [facility] CentralZmujjexAIVDBSNKEN7096-00-74 12:25:00 Test Item Value Reference Range Interpretation Comments Neutrophils # (test code = Neutrophils 4.0 1.5-8.1 #) [place] 139731-08-21 12:25:00 Test Item Value Reference Range Interpretation Comments Lymphocytes # (test code = Lymphocytes 1.9 1.0-5.5 #) [place] 139731-08-21 12:25:00 Test Item Value Reference Range Interpretation Comments Monocytes # (test code 0.5 See_Comment [Aut omated message] The = Monocytes #) system which generated this result tra nsmitted reference range : <=0.8. The reference r arelis was not used to int erpret this result as normal/abnormal . [facility] CentralZjglctxGISHVHRDIO2943-44-99 12:25:00 Test Item Value Reference Range Interpretation Comments Eosinophils # (test code 0.2 See_Comment [A utomated message] The = Eosinophils #) system whic h generated this result tra nsmitted reference range : <=0.5. The reference r arelis was not used to int erpret this result as normal/abnormal . [facility] CentralQdrxeasIISNCBQKYP8827-25-74 12:25:00 Test Item Value Reference Range Interpretation Comments Basophils # (test code 0.1 See_Comment [Aut omated message] The = Basophils #) system which generated this result tra nsmitted reference range : <=0.2. The reference r arelis was not used to int erpret this result as normal/abnormal . [facility] CentralJbtbohpVZWQQLNNWD9963-09-71 12:25:00 Test Item Value Reference Range Interpretation Comments PTT (test code = PTT) 32.8 s 22.9-35.8 [facility] CentralKjjimlrDFAVHOAMNA6890-58-60 12:25:00 Test Item Value Reference Range Interpretation Comments PT (test code = PT) 17.0 s 12.0-14.7 [facility] CentralVvrehzkRMEOGNPFVD3600-21-49 12:25:00 Test Item Value Reference Range Interpretation Comments INR (test code = INR) 1.41 1 0.85-1.17 [facility] CentralAqhfsplIKJMZPHZHK3037-78-71 12:25:00 Test Item Value Reference Range Interpretation Comments WBC (test code = WBC) 6.6 3.7-10.4 [place] 139731-08-21 12:25:00 Test Item Value Reference Range Interpretation Comments RBC (test code = RBC) 2.58 4.20-5.40 [place] 139731-08-21 12:25:00 Test Item Value Reference Range Interpretation Comments Hgb (test code = Hgb) 7.6 12.0-16.0 [place] 139731-08-21 12:25:00 Test Item Value Reference Range Interpretation Comments Hct (test code = Hct) 22.8 36.0-48.0 [place] 139731-08-21 12:25:00 Test Item Value Reference Range Interpretation Comments MCV (test code = MCV) 88.2 80.0-98.0 [place] [address]-08-21 12:25:00 Test Item Value Reference Range Interpretation Comments MCH (test code = MCH) 29.6 pg 27.0-31.0 [place] 139731-08-21 12:25:00 Test Item Value Reference Range Interpretation Comments MCHC (test code = MCHC) 33.6 32.0-36.0 [place] 139731-08-21 12:25:00 Test Item Value Reference Range Interpretation Comments RDW (test code = RDW) 15.2 11.5-14.5 [place] 139731-08-21 12:25:00 Test Item Value Reference Range Interpretation Comments Platelet (test code = Platelet) 421 133-450 [place] 139731-08-21 12:25:00 Test Item Value Reference Range Interpretation Comments MPV (test code = MPV) 8.9 7.4-10.4 [facility]2021-08-21 12:25:00 Test Item Value Reference Range Interpretation Comments Iron (test code = Iron) 30 [facility]2021-08-21 12:25:00 Test Item Value Reference Range Interpretation Comments TIBC (test code = TIBC) 252 [facility]2021-08-21 12:25:00 Test Item Value Reference Range Interpretation Comments % Satur Fe (test code = % Satur Fe) 12 [facility]2021-08-21 12:25:00 Test Item Value Reference Range Interpretation Comments Glucose Lvl (test code = Glucose Lvl) 99 70-99 [facility]2021-08-21 12:25:00 Test Item Value Reference Range Interpretation Comments BUN (test code = BUN) 7 7-22 [place] 853501-08-21 12:25:00 Test Item Value Reference Range Interpretation Comments Creatinine Lvl (test code = Creatinine 0.60 0.50-1.40 Lvl) [place] 853501-08-21 12:25:00 Test Item Value Reference Range Interpretation Comments Sodium Lvl (test code = Sodium Lvl) 148 135-145 [place] 853501-08-21 12:25:00 Test Item Value Reference Range Interpretation Comments Potassium Lvl (test code = Potassium 3.6 3.5-5.1 Lvl) [place] 853501-08-21 12:25:00 Test Item Value Reference Range Interpretation Comments Chloride Lvl (test code = Chloride Lvl) 116 95-109 [place] 853501-08-21 12:25:00 Test Item Value Reference Range Interpretation Comments CO2 (test code = CO2) 24 24-32 [place] 853501-08-21 12:25:00 Test Item Value Reference Range Interpretation Comments Calcium Lvl (test code = Calcium Lvl) 8.5 8.5-10.5 [place] 853501-08-21 12:25:00 Test Item Value Reference Range Interpretation Comments AGAP (test code = AGAP) 11.6 10.0-20.0 [place] 853501-08-21 12:25:00 Test Item Value Reference Range Interpretation Comments eGFR (test code = eGFR) 94 [place] 139731-08-21 12:25:00 Test Item Value Reference Range Interpretation Comments Segs (test code = Segs) 60.4 45.0-75.0 [place] 139731-08-21 12:25:00 Test Item Value Reference Range Interpretation Comments Lymphocytes (test code = Lymphocytes) 28.7 20.0-40.0 [place] 139731-08-21 12:25:00 Test Item Value Reference Range Interpretation Comments Monocytes (test code = Monocytes) 7.2 2.0-12.0 [place] 139731-08-21 12:25:00 Test Item Value Reference Range Interpretation Comments Eosinophils (test code = 2.8 See_Comment [A utomated message] The Eosinophils) system which ge nerated this result tra nsmitted reference range : <=4.0. The reference r arelis was not used to int erpret this result as normal/abnormal . [place] 139731-08-21 12:25:00 Test Item Value Reference Range Interpretation Comments Basophils (test code = 0.9 See_Comment [Aut omated message] The Basophils) system which ge nerated this result tra nsmitted reference range : <=1.0. The reference r arelis was not used to int erpret this result as normal/abnormal . [place] 139731-08-21 12:25:00 Test Item Value Reference Range Interpretation Comments Neutrophils # (test code = Neutrophils 4.0 1.5-8.1 #) [place] 139731-08-21 12:25:00 Test Item Value Reference Range Interpretation Comments Lymphocytes # (test code = Lymphocytes 1.9 1.0-5.5 #) [place] 139731-08-21 12:25:00 Test Item Value Reference Range Interpretation Comments Monocytes # (test code 0.5 See_Comment [Aut omated message] The = Monocytes #) system which generated this result tra nsmitted reference range : <=0.8. The reference r arelis was not used to int erpret this result as normal/abnormal . [place] 139731-08-21 12:25:00 Test Item Value Reference Range Interpretation Comments Eosinophils # (test code 0.2 See_Comment [A utomated message] The = Eosinophils #) system whic h generated this result tra nsmitted reference range : <=0.5. The reference r arelis was not used to int erpret this result as normal/abnormal . [place] 139731-08-21 12:25:00 Test Item Value Reference Range Interpretation Comments Basophils # (test code 0.1 See_Comment [Aut omated message] The = Basophils #) system which generated this result tra nsmitted reference range : <=0.2. The reference r arelis was not used to int erpret this result as normal/abnormal . [place] 139731-08-21 12:25:00 Test Item Value Reference Range Interpretation Comments PTT (test code = PTT) 32.8 s 22.9-35.8 [place] 139731-08-21 12:25:00 Test Item Value Reference Range Interpretation Comments PT (test code = PT) 17.0 s 12.0-14.7 [place] 139731-08-21 12:25:00 Test Item Value Reference Range Interpretation Comments INR (test code = INR) 1.41 1 0.85-1.17 [place] [address]-08-21 12:25:00 Test Item Value Reference Range Interpretation Comments WBC (test code = WBC) 6.6 3.7-10.4 [place] 139731-08-21 12:25:00 Test Item Value Reference Range Interpretation Comments RBC (test code = RBC) 2.58 4.20-5.40 [place] 139731-08-21 12:25:00 Test Item Value Reference Range Interpretation Comments Hgb (test code = Hgb) 7.6 12.0-16.0 [place] 139731-08-21 12:25:00 Test Item Value Reference Range Interpretation Comments Hct (test code = Hct) 22.8 36.0-48.0 [place] 139731-08-21 12:25:00 Test Item Value Reference Range Interpretation Comments MCV (test code = MCV) 88.2 80.0-98.0 [facility] CentralOulqmyrIRWGJWCKJV4152-24-65 12:25:00 Test Item Value Reference Range Interpretation Comments MCH (test code = MCH) 29.6 pg 27.0-31.0 [facility] CentralPuzkkywDHIVLZRRCD0806-63-78 12:25:00 Test Item Value Reference Range Interpretation Comments MCHC (test code = MCHC) 33.6 32.0-36.0 [place] 139731-08-21 12:25:00 Test Item Value Reference Range Interpretation Comments RDW (test code = RDW) 15.2 11.5-14.5 [facility] CentralSagqzqtGABQWHFXWN9597-62-82 12:25:00 Test Item Value Reference Range Interpretation Comments Platelet (test code = Platelet) 421 133-450 [facility] CentralRiagllcCZCUWZSRDW5929-75-85 12:25:00 Test Item Value Reference Range Interpretation Comments MPV (test code = MPV) 8.9 7.4-10.4 [facility]2021-08-21 12:25:00 Test Item Value Reference Range Interpretation Comments Iron (test code = Iron) 30 [facility]2021-08-21 12:25:00 Test Item Value Reference Range Interpretation Comments TIBC (test code = TIBC) 252 [facility]2021-08-21 12:25:00 Test Item Value Reference Range Interpretation Comments % Satur Fe (test code = % Satur Fe) 12 [facility]2021-08-21 12:25:00 Test Item Value Reference Range Interpretation Comments Glucose Lvl (test code = Glucose Lvl) 99 70-99 [facility]2021-08-21 12:25:00 Test Item Value Reference Range Interpretation Comments BUN (test code = BUN) 7 7-22 [place] 853501-08-21 12:25:00 Test Item Value Reference Range Interpretation Comments Creatinine Lvl (test code = Creatinine 0.60 0.50-1.40 Lvl) [place] 853501-08-21 12:25:00 Test Item Value Reference Range Interpretation Comments Sodium Lvl (test code = Sodium Lvl) 148 135-145 [place] 853501-08-21 12:25:00 Test Item Value Reference Range Interpretation Comments Potassium Lvl (test code = Potassium 3.6 3.5-5.1 Lvl) [place] 853501-08-21 12:25:00 Test Item Value Reference Range Interpretation Comments Chloride Lvl (test code = Chloride Lvl) 116 95-109 [place] 853501-08-21 12:25:00 Test Item Value Reference Range Interpretation Comments CO2 (test code = CO2) 24 24-32 [place] 853501-08-21 12:25:00 Test Item Value Reference Range Interpretation Comments Calcium Lvl (test code = Calcium Lvl) 8.5 8.5-10.5 [place] 853501-08-21 12:25:00 Test Item Value Reference Range Interpretation Comments AGAP (test code = AGAP) 11.6 10.0-20.0 [place] 853501-08-21 12:25:00 Test Item Value Reference Range Interpretation Comments eGFR (test code = eGFR) 94 [place] 139731-08-21 12:25:00 Test Item Value Reference Range Interpretation Comments Segs (test code = Segs) 60.4 45.0-75.0 [place] 139731-08-21 12:25:00 Test Item Value Reference Range Interpretation Comments Lymphocytes (test code = Lymphocytes) 28.7 20.0-40.0 [place] [address]-08-21 12:25:00 Test Item Value Reference Range Interpretation Comments Monocytes (test code = Monocytes) 7.2 2.0-12.0 [place] [address]-08-21 12:25:00 Test Item Value Reference Range Interpretation Comments Eosinophils (test code = 2.8 See_Comment [A utomated message] The Eosinophils) system which ge nerated this result tra nsmitted reference range : <=4.0. The reference r arelis was not used to int erpret this result as normal/abnormal . [place] 139731-08-21 12:25:00 Test Item Value Reference Range Interpretation Comments Basophils (test code = 0.9 See_Comment [Aut omated message] The Basophils) system which ge nerated this result tra nsmitted reference range : <=1.0. The reference r arelis was not used to int erpret this result as normal/abnormal . [place] 139731-08-21 12:25:00 Test Item Value Reference Range Interpretation Comments Neutrophils # (test code = Neutrophils 4.0 1.5-8.1 #) [facility] CentralSsypcatAJVKFEBQDU2422-58-43 12:25:00 Test Item Value Reference Range Interpretation Comments Lymphocytes # (test code = Lymphocytes 1.9 1.0-5.5 #) [place] 139731-08-21 12:25:00 Test Item Value Reference Range Interpretation Comments Monocytes # (test code 0.5 See_Comment [Aut omated message] The = Monocytes #) system which generated this result tra nsmitted reference range : <=0.8. The reference r arelis was not used to int erpret this result as normal/abnormal . [facility] CentralMoashioPZZYVWWGDB6604-34-51 12:25:00 Test Item Value Reference Range Interpretation Comments Eosinophils # (test code 0.2 See_Comment [A utomated message] The = Eosinophils #) system whic h generated this result tra nsmitted reference range : <=0.5. The reference r arelis was not used to int erpret this result as normal/abnormal . [facility] CentralXwemioxUGBECHSPNJ3648-08-87 12:25:00 Test Item Value Reference Range Interpretation Comments Basophils # (test code 0.1 See_Comment [Aut omated message] The = Basophils #) system which generated this result tra nsmitted reference range : <=0.2. The reference r arelis was not used to int erpret this result as normal/abnormal . [facility] CentralBrgvuwtFQUSRIFFTY7441-53-50 12:25:00 Test Item Value Reference Range Interpretation Comments PTT (test code = PTT) 32.8 s 22.9-35.8 [place] 139731-08-21 12:25:00 Test Item Value Reference Range Interpretation Comments PT (test code = PT) 17.0 s 12.0-14.7 [facility] CentralNalgnfrGCRYZKNQGW9177-00-08 12:25:00 Test Item Value Reference Range Interpretation Comments INR (test code = INR) 1.41 1 0.85-1.17 [facility] CentralNpdbyakJFLOEQRGWD1458-76-50 12:25:00 Test Item Value Reference Range Interpretation Comments WBC (test code = WBC) 6.6 3.7-10.4 [facility] CentralNrdgeaeOSFPODJFTA8859-00-09 12:25:00 Test Item Value Reference Range Interpretation Comments RBC (test code = RBC) 2.58 4.20-5.40 [facility] CentralXrrlmtuADBGMBYBWY6525-90-42 12:25:00 Test Item Value Reference Range Interpretation Comments Hgb (test code = Hgb) 7.6 12.0-16.0 [facility] CentralLbanocnKPPWGARUOS6508-02-58 12:25:00 Test Item Value Reference Range Interpretation Comments Hct (test code = Hct) 22.8 36.0-48.0 [facility] CentralJcpykvzKONNVSHMHT5145-43-28 12:25:00 Test Item Value Reference Range Interpretation Comments MCV (test code = MCV) 88.2 80.0-98.0 [facility] CentralHlnumfgHBJBNBRTBR3334-89-28 12:25:00 Test Item Value Reference Range Interpretation Comments MCH (test code = MCH) 29.6 pg 27.0-31.0 [facility] CentralQnfblheWLYRKTTZKH1341-66-67 12:25:00 Test Item Value Reference Range Interpretation Comments MCHC (test code = MCHC) 33.6 32.0-36.0 [facility] CentralTqbqmuwIMDTZFWRJC5715-51-16 12:25:00 Test Item Value Reference Range Interpretation Comments RDW (test code = RDW) 15.2 11.5-14.5 [facility] CentralTrhzwzfASXIQDNUHA9135-00-70 12:25:00 Test Item Value Reference Range Interpretation Comments Platelet (test code = Platelet) 421 020-450 [facility] CentralTufokxyYIAKGBBKDI8581-78-84 12:25:00 Test Item Value Reference Range Interpretation Comments MPV (test code = MPV) 8.9 7.4-10.4 [facility]2021-08-21 12:25:00 Test Item Value Reference Range Interpretation Comments Iron (test code = Iron) 30 [facility]2021-08-21 12:25:00 Test Item Value Reference Range Interpretation Comments TIBC (test code = TIBC) 252 [facility]2021-08-21 12:25:00 Test Item Value Reference Range Interpretation Comments % Satur Fe (test code = % Satur Fe) 12 [place] 853501-08-21 12:25:00 Test Item Value Reference Range Interpretation Comments Glucose Lvl (test code = Glucose Lvl) 99 70-99 [place] 853501-08-21 12:25:00 Test Item Value Reference Range Interpretation Comments BUN (test code = BUN) 7 7-22 [place] 853501-08-21 12:25:00 Test Item Value Reference Range Interpretation Comments Creatinine Lvl (test code = Creatinine 0.60 0.50-1.40 Lvl) [place] 853501-08-21 12:25:00 Test Item Value Reference Range Interpretation Comments Sodium Lvl (test code = Sodium Lvl) 148 135-145 [place] 853501-08-21 12:25:00 Test Item Value Reference Range Interpretation Comments Potassium Lvl (test code = Potassium 3.6 3.5-5.1 Lvl) [place] 853501-08-21 12:25:00 Test Item Value Reference Range Interpretation Comments Chloride Lvl (test code = Chloride Lvl) 116 95-109 [place] 853501-08-21 12:25:00 Test Item Value Reference Range Interpretation Comments CO2 (test code = CO2) 24 24-32 [place] [address]3501-08-21 12:25:00 Test Item Value Reference Range Interpretation Comments Calcium Lvl (test code = Calcium Lvl) 8.5 8.5-10.5 [place] [address]3501-08-21 12:25:00 Test Item Value Reference Range Interpretation Comments AGAP (test code = AGAP) 11.6 10.0-20.0 [place] [address]3501-08-21 12:25:00 Test Item Value Reference Range Interpretation Comments eGFR (test code = eGFR) 94 [place] 139731-08-21 12:25:00 Test Item Value Reference Range Interpretation Comments Segs (test code = Segs) 60.4 45.0-75.0 [place] 139731-08-21 12:25:00 Test Item Value Reference Range Interpretation Comments Lymphocytes (test code = Lymphocytes) 28.7 20.0-40.0 [place] 139731-08-21 12:25:00 Test Item Value Reference Range Interpretation Comments Monocytes (test code = Monocytes) 7.2 2.0-12.0 [place] 139731-08-21 12:25:00 Test Item Value Reference Range Interpretation Comments Eosinophils (test code = 2.8 See_Comment [A utomated message] The Eosinophils) system which ge nerated this result tra nsmitted reference range : <=4.0. The reference r arelis was not used to int erpret this result as normal/abnormal . [facility]kdvxoxTRILOIONJG9024-36-31 12:25:00 Test Item Value Reference Range Interpretation Comments Basophils (test code = 0.9 See_Comment [Aut omated message] The Basophils) system which ge nerated this result tra nsmitted reference range : <=1.0. The reference r arelis was not used to int erpret this result as normal/abnormal . [facility] CentralQpblefiTDWSXGZHVI1610-96-14 12:25:00 Test Item Value Reference Range Interpretation Comments Neutrophils # (test code = Neutrophils 4.0 1.5-8.1 #) [facility] CentralAjlxvznWMMTYHQMLE6952-82-27 12:25:00 Test Item Value Reference Range Interpretation Comments Lymphocytes # (test code = Lymphocytes 1.9 1.0-5.5 #) [facility] CentralDsylcxiGLPQXOKTFL3211-96-78 12:25:00 Test Item Value Reference Range Interpretation Comments Monocytes # (test code 0.5 See_Comment [Aut omated message] The = Monocytes #) system which generated this result tra nsmitted reference range : <=0.8. The reference r arelis was not used to int erpret this result as normal/abnormal . [facility] CentralHqtvfsdVIFSYOOTQZ0126-59-82 12:25:00 Test Item Value Reference Range Interpretation Comments Eosinophils # (test code 0.2 See_Comment [A utomated message] The = Eosinophils #) system whic h generated this result tra nsmitted reference range : <=0.5. The reference r arelis was not used to int erpret this result as normal/abnormal . [facility] CentralDimrfomEUGWYPRRJE0941-80-08 12:25:00 Test Item Value Reference Range Interpretation Comments Basophils # (test code 0.1 See_Comment [Aut omated message] The = Basophils #) system which generated this result tra nsmitted reference range : <=0.2. The reference r arelis was not used to int erpret this result as normal/abnormal . [facility] CentralYhpsqisXITOPTPDYV9984-60-00 12:25:00 Test Item Value Reference Range Interpretation Comments PTT (test code = PTT) 32.8 s 22.9-35.8 [place] 139731-08-21 12:25:00 Test Item Value Reference Range Interpretation Comments PT (test code = PT) 17.0 s 12.0-14.7 [place] 139731-08-21 12:25:00 Test Item Value Reference Range Interpretation Comments INR (test code = INR) 1.41 1 0.85-1.17 [place] 139731-08-21 12:25:00 Test Item Value Reference Range Interpretation Comments WBC (test code = WBC) 6.6 3.7-10.4 [place] 139731-08-21 12:25:00 Test Item Value Reference Range Interpretation Comments RBC (test code = RBC) 2.58 4.20-5.40 [place] 1397[address]-08-21 12:25:00 Test Item Value Reference Range Interpretation Comments Hgb (test code = Hgb) 7.6 12.0-16.0 [place] 139731-08-21 12:25:00 Test Item Value Reference Range Interpretation Comments Hct (test code = Hct) 22.8 36.0-48.0 [place] 139731-08-21 12:25:00 Test Item Value Reference Range Interpretation Comments MCV (test code = MCV) 88.2 80.0-98.0 [place] 139731-08-21 12:25:00 Test Item Value Reference Range Interpretation Comments MCH (test code = MCH) 29.6 pg 27.0-31.0 [place] 139731-08-21 12:25:00 Test Item Value Reference Range Interpretation Comments MCHC (test code = MCHC) 33.6 32.0-36.0 [place] 1397[address]-08-21 12:25:00 Test Item Value Reference Range Interpretation Comments RDW (test code = RDW) 15.2 11.5-14.5 [place] 1397[address]-08-21 12:25:00 Test Item Value Reference Range Interpretation Comments Platelet (test code = Platelet) 421 133-450 [place] 139731-08-21 12:25:00 Test Item Value Reference Range Interpretation Comments MPV (test code = MPV) 8.9 7.4-10.4 [place] 693571-08-21 12:25:00 Test Item Value Reference Range Interpretation Comments Iron (test code = Iron) 30 [place] 693571-08-21 12:25:00 Test Item Value Reference Range Interpretation Comments TIBC (test code = TIBC) 252 [place] 693571-08-21 12:25:00 Test Item Value Reference Range Interpretation Comments % Satur Fe (test code = % Satur Fe) 12 [facility]2021-08-21 12:25:00 Test Item Value Reference Range Interpretation Comments Glucose Lvl (test code = Glucose Lvl) 99 70-99 [place] [address]3501-08-21 12:25:00 Test Item Value Reference Range Interpretation Comments BUN (test code = BUN) 7 7-22 [place] [address]3501-08-21 12:25:00 Test Item Value Reference Range Interpretation Comments Creatinine Lvl (test code = Creatinine 0.60 0.50-1.40 Lvl) [place] [address]3501-08-21 12:25:00 Test Item Value Reference Range Interpretation Comments Sodium Lvl (test code = Sodium Lvl) 148 135-145 [place] [address]3501-08-21 12:25:00 Test Item Value Reference Range Interpretation Comments Potassium Lvl (test code = Potassium 3.6 3.5-5.1 Lvl) [place] [address]3501-08-21 12:25:00 Test Item Value Reference Range Interpretation Comments Chloride Lvl (test code = Chloride Lvl) 116 95-109 [place] [address]3501-08-21 12:25:00 Test Item Value Reference Range Interpretation Comments CO2 (test code = CO2) 24 24-32 [place] [address]3501-08-21 12:25:00 Test Item Value Reference Range Interpretation Comments Calcium Lvl (test code = Calcium Lvl) 8.5 8.5-10.5 [place] [address]3501-08-21 12:25:00 Test Item Value Reference Range Interpretation Comments AGAP (test code = AGAP) 11.6 10.0-20.0 [place] [address]3501-08-21 12:25:00 Test Item Value Reference Range Interpretation Comments eGFR (test code = eGFR) 94 [place] 139731-08-21 12:25:00 Test Item Value Reference Range Interpretation Comments Segs (test code = Segs) 60.4 45.0-75.0 [place] 1397[address]-08-21 12:25:00 Test Item Value Reference Range Interpretation Comments Lymphocytes (test code = Lymphocytes) 28.7 20.0-40.0 [place] [address]-08-21 12:25:00 Test Item Value Reference Range Interpretation Comments Monocytes (test code = Monocytes) 7.2 2.0-12.0 [place] 1397[address]-08-21 12:25:00 Test Item Value Reference Range Interpretation Comments Eosinophils (test code = 2.8 See_Comment [A utomated message] The Eosinophils) system which ge nerated this result tra nsmitted reference range : <=4.0. The reference r arelis was not used to int erpret this result as normal/abnormal . [place] 1397[address]-08-21 12:25:00 Test Item Value Reference Range Interpretation Comments Basophils (test code = 0.9 See_Comment [Aut omated message] The Basophils) system which ge nerated this result tra nsmitted reference range : <=1.0. The reference r arelis was not used to int erpret this result as normal/abnormal . [place] 1397[address]-08-21 12:25:00 Test Item Value Reference Range Interpretation Comments Neutrophils # (test code = Neutrophils 4.0 1.5-8.1 #) [place] 1397[address]-08-21 12:25:00 Test Item Value Reference Range Interpretation Comments Lymphocytes # (test code = Lymphocytes 1.9 1.0-5.5 #) [place] [address]-08-21 12:25:00 Test Item Value Reference Range Interpretation Comments Monocytes # (test code 0.5 See_Comment [Aut omated message] The = Monocytes #) system which generated this result tra nsmitted reference range : <=0.8. The reference r arelis was not used to int erpret this result as normal/abnormal . [facility] CentralYeeflsePGGLULAFXK9476-17-13 12:25:00 Test Item Value Reference Range Interpretation Comments Eosinophils # (test code 0.2 See_Comment [A utomated message] The = Eosinophils #) system whic h generated this result tra nsmitted reference range : <=0.5. The reference r arelis was not used to int erpret this result as normal/abnormal . [facility] CentralCwfvasxWKUFVTEVWP5695-89-12 12:25:00 Test Item Value Reference Range Interpretation Comments Basophils # (test code 0.1 See_Comment [Aut omated message] The = Basophils #) system which generated this result tra nsmitted reference range : <=0.2. The reference r arelis was not used to int erpret this result as normal/abnormal . [place] 139731-08-21 12:25:00 Test Item Value Reference Range Interpretation Comments PTT (test code = PTT) 32.8 s 22.9-35.8 [place] 139731-08-21 12:25:00 Test Item Value Reference Range Interpretation Comments PT (test code = PT) 17.0 s 12.0-14.7 [place] 139731-08-21 12:25:00 Test Item Value Reference Range Interpretation Comments INR (test code = INR) 1.41 1 0.85-1.17 [place] 1397[address]-08-21 12:25:00 Test Item Value Reference Range Interpretation Comments WBC (test code = WBC) 6.6 3.7-10.4 [place] 1397[address]-08-21 12:25:00 Test Item Value Reference Range Interpretation Comments RBC (test code = RBC) 2.58 4.20-5.40 [place] 1397[address]-08-21 12:25:00 Test Item Value Reference Range Interpretation Comments Hgb (test code = Hgb) 7.6 12.0-16.0 [place] 1397[address]-08-21 12:25:00 Test Item Value Reference Range Interpretation Comments Hct (test code = Hct) 22.8 36.0-48.0 [place] 1397[address]-08-21 12:25:00 Test Item Value Reference Range Interpretation Comments MCV (test code = MCV) 88.2 80.0-98.0 [place] 1397[address]-08-21 12:25:00 Test Item Value Reference Range Interpretation Comments MCH (test code = MCH) 29.6 pg 27.0-31.0 [place] 1397[address]-08-21 12:25:00 Test Item Value Reference Range Interpretation Comments MCHC (test code = MCHC) 33.6 32.0-36.0 [place] 1397[address]-08-21 12:25:00 Test Item Value Reference Range Interpretation Comments RDW (test code = RDW) 15.2 11.5-14.5 [place] 1397[address]-08-21 12:25:00 Test Item Value Reference Range Interpretation Comments Platelet (test code = Platelet) 421 133-450 [place] 1397[address]-08-21 12:25:00 Test Item Value Reference Range Interpretation Comments MPV (test code = MPV) 8.9 7.4-10.4 [facility]2021-08-21 12:25:00 Test Item Value Reference Range Interpretation Comments Iron (test code = Iron) 30 [facility]2021-08-21 12:25:00 Test Item Value Reference Range Interpretation Comments TIBC (test code = TIBC) 252 [facility]2021-08-21 12:25:00 Test Item Value Reference Range Interpretation Comments % Satur Fe (test code = % Satur Fe) 12 [facility]2021-08-21 12:25:00 Test Item Value Reference Range Interpretation Comments Glucose Lvl (test code = Glucose Lvl) 99 70-99 [facility]2021-08-21 12:25:00 Test Item Value Reference Range Interpretation Comments BUN (test code = BUN) 7 7-22 [place] [address]3501-08-21 12:25:00 Test Item Value Reference Range Interpretation Comments Creatinine Lvl (test code = Creatinine 0.60 0.50-1.40 Lvl) [facility]2021-08-21 12:25:00 Test Item Value Reference Range Interpretation Comments Sodium Lvl (test code = Sodium Lvl) 148 135-145 [place] [address]3501-08-21 12:25:00 Test Item Value Reference Range Interpretation Comments Potassium Lvl (test code = Potassium 3.6 3.5-5.1 Lvl) [place] [address]3501-08-21 12:25:00 Test Item Value Reference Range Interpretation Comments Chloride Lvl (test code = Chloride Lvl) 116 95-109 [place] 853501-08-21 12:25:00 Test Item Value Reference Range Interpretation Comments CO2 (test code = CO2) 24 24-32 [place] [address]3501-08-21 12:25:00 Test Item Value Reference Range Interpretation Comments Calcium Lvl (test code = Calcium Lvl) 8.5 8.5-10.5 [place] [address]3501-08-21 12:25:00 Test Item Value Reference Range Interpretation Comments AGAP (test code = AGAP) 11.6 10.0-20.0 [place] [address]3501-08-21 12:25:00 Test Item Value Reference Range Interpretation Comments eGFR (test code = eGFR) 94 [place] 139731-08-21 12:25:00 Test Item Value Reference Range Interpretation Comments Segs (test code = Segs) 60.4 45.0-75.0 [place] [address]-08-21 12:25:00 Test Item Value Reference Range Interpretation Comments Lymphocytes (test code = Lymphocytes) 28.7 20.0-40.0 [place] 1397[address]-08-21 12:25:00 Test Item Value Reference Range Interpretation Comments Monocytes (test code = Monocytes) 7.2 2.0-12.0 [place] 139731-08-21 12:25:00 Test Item Value Reference Range Interpretation Comments Eosinophils (test code = 2.8 See_Comment [A utomated message] The Eosinophils) system which nerated this result tra nsmitted reference range : <=4.0. The reference r arelis was not used to int erpret this result as normal/abnormal . [place] 1397[address]-08-21 12:25:00 Test Item Value Reference Range Interpretation Comments Basophils (test code = 0.9 See_Comment [Aut omated message] The Basophils) system which ge nerated this result tra nsmitted reference range : <=1.0. The reference r arelis was not used to int erpret this result as normal/abnormal . [place] 1397[address]-08-21 12:25:00 Test Item Value Reference Range Interpretation Comments Neutrophils # (test code = Neutrophils 4.0 1.5-8.1 #) [facility] CentralSllmlmhDVVIMMDOSC0953-69-87 12:25:00 Test Item Value Reference Range Interpretation Comments Lymphocytes # (test code = Lymphocytes 1.9 1.0-5.5 #) [facility] CentralBhwokvbAZVQTFTHCT7482-56-96 12:25:00 Test Item Value Reference Range Interpretation Comments Monocytes # (test code 0.5 See_Comment [Aut omated message] The = Monocytes #) system which generated this result tra nsmitted reference range : <=0.8. The reference r arelis was not used to int erpret this result as normal/abnormal . [facility] CentralLmkyijiXOEUDVIKTP0152-92-68 12:25:00 Test Item Value Reference Range Interpretation Comments Eosinophils # (test code 0.2 See_Comment [A utomated message] The = Eosinophils #) system whic h generated this result tra nsmitted reference range : <=0.5. The reference r arelis was not used to int erpret this result as normal/abnormal . [facility] CentralViwhphxXUTTBJJHOD4217-20-34 12:25:00 Test Item Value Reference Range Interpretation Comments Basophils # (test code 0.1 See_Comment [Aut omated message] The = Basophils #) system which generated this result tra nsmitted reference range : <=0.2. The reference r arelis was not used to int erpret this result as normal/abnormal . [facility] CentralYczziorWCAOCCEHXK0480-40-84 12:25:00 Test Item Value Reference Range Interpretation Comments PTT (test code = PTT) 32.8 s 22.9-35.8 [place] 139731-08-21 12:25:00 Test Item Value Reference Range Interpretation Comments PT (test code = PT) 17.0 s 12.0-14.7 [place] 139731-08-21 12:25:00 Test Item Value Reference Range Interpretation Comments INR (test code = INR) 1.41 1 0.85-1.17 [place] 1397[address]-08-21 12:25:00 Test Item Value Reference Range Interpretation Comments WBC (test code = WBC) 6.6 3.7-10.4 [place] 1397[address]-08-21 12:25:00 Test Item Value Reference Range Interpretation Comments RBC (test code = RBC) 2.58 4.20-5.40 [place] 1397[address]-08-21 12:25:00 Test Item Value Reference Range Interpretation Comments Hgb (test code = Hgb) 7.6 12.0-16.0 [place] 1397[address]-08-21 12:25:00 Test Item Value Reference Range Interpretation Comments Hct (test code = Hct) 22.8 36.0-48.0 [place] 1397[address]-08-21 12:25:00 Test Item Value Reference Range Interpretation Comments MCV (test code = MCV) 88.2 80.0-98.0 [place] 1397[address]-08-21 12:25:00 Test Item Value Reference Range Interpretation Comments MCH (test code = MCH) 29.6 pg 27.0-31.0 [place] 1397[address]-08-21 12:25:00 Test Item Value Reference Range Interpretation Comments MCHC (test code = MCHC) 33.6 32.0-36.0 [place] 1397[address]-08-21 12:25:00 Test Item Value Reference Range Interpretation Comments RDW (test code = RDW) 15.2 11.5-14.5 [facility] CentralOtcjugjCMSPGLCACA2343-43-57 12:25:00 Test Item Value Reference Range Interpretation Comments Platelet (test code = Platelet) 421 133-450 [facility] CentralNeaoxmeLAVGHYCICQ4867-32-33 12:25:00 Test Item Value Reference Range Interpretation Comments MPV (test code = MPV) 8.9 7.4-10.4 [facility]2021-08-21 12:25:00 Test Item Value Reference Range Interpretation Comments Iron (test code = Iron) 30 [facility]2021-08-21 12:25:00 Test Item Value Reference Range Interpretation Comments TIBC (test code = TIBC) 252 [facility]2021-08-21 12:25:00 Test Item Value Reference Range Interpretation Comments % Satur Fe (test code = % Satur Fe) 12 [facility]2021-08-21 12:25:00 Test Item Value Reference Range Interpretation Comments Glucose Lvl (test code = Glucose Lvl) 99 70-99 [facility]2021-08-21 12:25:00 Test Item Value Reference Range Interpretation Comments BUN (test code = BUN) 7 7-22 [place] [address]3501-08-21 12:25:00 Test Item Value Reference Range Interpretation Comments Creatinine Lvl (test code = Creatinine 0.60 0.50-1.40 Lvl) [place] [address]3501-08-21 12:25:00 Test Item Value Reference Range Interpretation Comments Sodium Lvl (test code = Sodium Lvl) 148 135-145 [place] 853501-08-21 12:25:00 Test Item Value Reference Range Interpretation Comments Potassium Lvl (test code = Potassium 3.6 3.5-5.1 Lvl) [place] [address]3501-08-21 12:25:00 Test Item Value Reference Range Interpretation Comments Chloride Lvl (test code = Chloride Lvl) 116 95-109 [place] 853501-08-21 12:25:00 Test Item Value Reference Range Interpretation Comments CO2 (test code = CO2) 24 24-32 [place] [address]3501-08-21 12:25:00 Test Item Value Reference Range Interpretation Comments Calcium Lvl (test code = Calcium Lvl) 8.5 8.5-10.5 [place] [address]3501-08-21 12:25:00 Test Item Value Reference Range Interpretation Comments AGAP (test code = AGAP) 11.6 10.0-20.0 [place] 853501-08-21 12:25:00 Test Item Value Reference Range Interpretation Comments eGFR (test code = eGFR) 94 [place] 139731-08-21 12:25:00 Test Item Value Reference Range Interpretation Comments Segs (test code = Segs) 60.4 45.0-75.0 [place] 1397[address]-08-21 12:25:00 Test Item Value Reference Range Interpretation Comments Lymphocytes (test code = Lymphocytes) 28.7 20.0-40.0 [place] 1397[address]-08-21 12:25:00 Test Item Value Reference Range Interpretation Comments Monocytes (test code = Monocytes) 7.2 2.0-12.0 [place] 1397[address]-08-21 12:25:00 Test Item Value Reference Range Interpretation Comments Eosinophils (test code = 2.8 See_Comment [A utomated message] The Eosinophils) system which ge nerated this result tra nsmitted reference range : <=4.0. The reference r arelis was not used to int erpret this result as normal/abnormal . [facility] CentralDkeqwziABDMNZZPLJ2062-85-20 12:25:00 Test Item Value Reference Range Interpretation Comments Basophils (test code = 0.9 See_Comment [Aut omated message] The Basophils) system which ge nerated this result tra nsmitted reference range : <=1.0. The reference r arelis was not used to int erpret this result as normal/abnormal . [place] 1397[address]-08-21 12:25:00 Test Item Value Reference Range Interpretation Comments Neutrophils # (test code = Neutrophils 4.0 1.5-8.1 #) [place] 1397[address]-08-21 12:25:00 Test Item Value Reference Range Interpretation Comments Lymphocytes # (test code = Lymphocytes 1.9 1.0-5.5 #) [facility] CentralO[id number] 12:25:00 Test Item Value Reference Range Interpretation Comments Monocytes # (test code 0.5 See_Comment [Aut omated message] The = Monocytes #) system which generated this result tra nsmitted reference range : <=0.8. The reference r arelis was not used to int erpret this result as normal/abnormal . [facility] CentralYcrvbzlVANNPOGOZQ6388-22-17 12:25:00 Test Item Value Reference Range Interpretation Comments Eosinophils # (test code 0.2 See_Comment [A utomated message] The = Eosinophils #) system whic h generated this result tra nsmitted reference range : <=0.5. The reference r arelis was not used to int erpret this result as normal/abnormal . [facility] CentralUeamlwyKHBADNKCCQ7958-95-39 12:25:00 Test Item Value Reference Range Interpretation Comments Basophils # (test code 0.1 See_Comment [Aut omated message] The = Basophils #) system which generated this result tra nsmitted reference range : <=0.2. The reference r arelis was not used to int erpret this result as normal/abnormal . [place] 1397[address]-08-21 12:25:00 Test Item Value Reference Range Interpretation Comments PTT (test code = PTT) 32.8 s 22.9-35.8 [place] 139731-08-21 12:25:00 Test Item Value Reference Range Interpretation Comments PT (test code = PT) 17.0 s 12.0-14.7 [facility] CentralVslcwbzZDQZBFAPFQ8692-36-43 12:25:00 Test Item Value Reference Range Interpretation Comments INR (test code = INR) 1.41 1 0.85-1.17 [facility] CentralZdfzwzkIWKLWACFQN5350-39-87 12:25:00 Test Item Value Reference Range Interpretation Comments WBC (test code = WBC) 6.6 3.7-10.4 [facility] CentralUrjlpjjFBOXQOKAML7770-79-16 12:25:00 Test Item Value Reference Range Interpretation Comments RBC (test code = RBC) 2.58 4.20-5.40 [facility] CentralIwgwefhBODOCMSQPX2647-33-17 12:25:00 Test Item Value Reference Range Interpretation Comments Hgb (test code = Hgb) 7.6 12.0-16.0 [facility] CentralQbbyvpzGISQDIFHLY7643-00-93 12:25:00 Test Item Value Reference Range Interpretation Comments Hct (test code = Hct) 22.8 36.0-48.0 [facility] CentralAvyttpyTDWHHRRPBT7513-24-84 12:25:00 Test Item Value Reference Range Interpretation Comments MCV (test code = MCV) 88.2 80.0-98.0 [facility] CentralZsuqqnmBYESEJIUYI3031-03-02 12:25:00 Test Item Value Reference Range Interpretation Comments MCH (test code = MCH) 29.6 pg 27.0-31.0 [facility] CentralDfljplkLWDMYTNKBG3986-21-82 12:25:00 Test Item Value Reference Range Interpretation Comments MCHC (test code = MCHC) 33.6 32.0-36.0 [facility] [id number] 12:25:00 Test Item Value Reference Range Interpretation Comments RDW (test code = RDW) 15.2 11.5-14.5 [facility] CentralCmgsprsYPJTYWUBBA7006-87-07 12:25:00 Test Item Value Reference Range Interpretation Comments Platelet (test code = Platelet) 421 513-450 [facility] CentralJvtefdrYCHAPXIUOY8310-53-82 12:25:00 Test Item Value Reference Range Interpretation Comments MPV (test code = MPV) 8.9 7.4-10.4 [facility]2021-08-21 12:25:0030[facility] STUDY 2021-02-11 12:25:70889[facility] 12:25:0012[facility]2021-08-21 12:25:00 Test Item Value Reference Range Interpretation Comments Iron (test code = Iron) 30 [facility]2021-08-21 12:25:00 Test Item Value Reference Range Interpretation Comments TIBC (test code = TIBC) 252 [facility]2021-08-21 12:25:00 Test Item Value Reference Range Interpretation Comments % Satur Fe (test code = % Satur Fe) 12 [facility]2021-08-21 12:25:00 Test Item Value Reference Range Interpretation Comments Glucose Lvl (test code = Glucose Lvl) 99 70-99 [facility]2021-08-21 12:25:00 Test Item Value Reference Range Interpretation Comments BUN (test code = BUN) 7 7-22 [place] 853501-08-21 12:25:00 Test Item Value Reference Range Interpretation Comments Creatinine Lvl (test code = Creatinine 0.60 0.50-1.40 Lvl) [facility]2021-08-21 12:25:00 Test Item Value Reference Range Interpretation Comments Sodium Lvl (test code = Sodium Lvl) 148 135-145 [facility]2021-08-21 12:25:00 Test Item Value Reference Range Interpretation Comments Potassium Lvl (test code = Potassium 3.6 3.5-5.1 Lvl) [place] 853501-08-21 12:25:00 Test Item Value Reference Range Interpretation Comments Chloride Lvl (test code = Chloride Lvl) 116 95-109 [place] 853501-08-21 12:25:00 Test Item Value Reference Range Interpretation Comments CO2 (test code = CO2) 24 24-32 [facility]2021-08-21 12:25:0099[facility] 2021-02-11 12:25:00 Test Item Value Reference Range Interpretation Comments Calcium Lvl (test code = Calcium Lvl) 8.5 8.5-10.5 [place] 853501-08-21 12:25:00 Test Item Value Reference Range Interpretation Comments AGAP (test code = AGAP) 11.6 10.0-20.0 [facility]2021-08-21 12:25:00 Test Item Value Reference Range Interpretation Comments eGFR (test code = eGFR) 94 [facility] CentralFbfaytwWBEBAMVBLD3382-56-13 12:25:00 Test Item Value Reference Range Interpretation Comments Segs (test code = Segs) 60.4 45.0-75.0 [facility] CentralWjdeffgLUDHURFPDU2878-53-54 12:25:00 Test Item Value Reference Range Interpretation Comments Lymphocytes (test code = Lymphocytes) 28.7 20.0-40.0 [facility] CentralLkymgnnRQNLMBKZKP0339-86-08 12:25:00 Test Item Value Reference Range Interpretation Comments Monocytes (test code = Monocytes) 7.2 2.0-12.0 [facility] CentralCcwercvSMXCQPMLCT7353-38-26 12:25:00 Test Item Value Reference Range Interpretation Comments Eosinophils (test code = 2.8 See_Comment [A utomated message] The Eosinophils) system which ge nerated this result tra nsmitted reference range : <=4.0. The reference r arelis was not used to int erpret this result as normal/abnormal . [facility] CentralReqmrqcYTVVWYSKDA8733-29-66 12:25:00 Test Item Value Reference Range Interpretation Comments Basophils (test code = 0.9 See_Comment [Aut omated message] The Basophils) system which ge nerated this result tra nsmitted reference range : <=1.0. The reference r arelis was not used to int erpret this result as normal/abnormal . [facility] CentralZfjszqdWNQGFXFAHE1630-00-22 12:25:00 Test Item Value Reference Range Interpretation Comments Neutrophils # (test code = Neutrophils 4.0 1.5-8.1 #) [facility] CentralTqenlfeRYEFLATKQD3125-08-80 12:25:00 Test Item Value Reference Range Interpretation Comments Lymphocytes # (test code = Lymphocytes 1.9 1.0-5.5 #) [place] 139731-08-21 12:25:00 Test Item Value Reference Range Interpretation Comments Monocytes # (test code 0.5 See_Comment [Aut omated message] The = Monocytes #) system which generated this result tra nsmitted reference range : <=0.8. The reference r arelis was not used to int erpret this result as normal/abnormal . [facility] CentralJfnnlpxCCORCAABUH8791-44-94 12:25:00 Test Item Value Reference Range Interpretation Comments Eosinophils # (test code 0.2 See_Comment [A utomated message] The = Eosinophils #) system whic h generated this result tra nsmitted reference range : <=0.5. The reference r arelis was not used to int erpret this result as normal/abnormal . [facility] CentralQxhahnbHCHZVTSVMW1125-69-14 12:25:00 Test Item Value Reference Range Interpretation Comments Basophils # (test code 0.1 See_Comment [Aut omated message] The = Basophils #) system which generated this result tra nsmitted reference range : <=0.2. The reference r arelis was not used to int erpret this result as normal/abnormal . [facility] CentralEizeyncPPSQUTJEHM6746-31-39 12:25:00 Test Item Value Reference Range Interpretation Comments PTT (test code = PTT) 32.8 s 22.9-35.8 [place] 139731-08-21 12:25:00 Test Item Value Reference Range Interpretation Comments PT (test code = PT) 17.0 s 12.0-14.7 [place] 139731-08-21 12:25:00 Test Item Value Reference Range Interpretation Comments INR (test code = INR) 1.41 1 0.85-1.17 [place] 139731-08-21 12:25:00 Test Item Value Reference Range Interpretation Comments WBC (test code = WBC) 6.6 3.7-10.4 [facility] CentralHjafnsjQSLLDCBFBO8698-38-35 12:25:00 Test Item Value Reference Range Interpretation Comments RBC (test code = RBC) 2.58 4.20-5.40 [place] 139731-08-21 12:25:00 Test Item Value Reference Range Interpretation Comments Hgb (test code = Hgb) 7.6 12.0-16.0 [place] 139731-08-21 12:25:00 Test Item Value Reference Range Interpretation Comments Hct (test code = Hct) 22.8 36.0-48.0 [place] 139731-08-21 12:25:00 Test Item Value Reference Range Interpretation Comments MCV (test code = MCV) 88.2 80.0-98.0 [place] 139731-08-21 12:25:00 Test Item Value Reference Range Interpretation Comments MCH (test code = MCH) 29.6 pg 27.0-31.0 [facility] CentralLvxwmleMXVENWMUXK5692-19-85 12:25:00 Test Item Value Reference Range Interpretation Comments MCHC (test code = MCHC) 33.6 32.0-36.0 [facility] CentralJahdthmYYTTLHXNGK9406-48-07 12:25:00 Test Item Value Reference Range Interpretation Comments RDW (test code = RDW) 15.2 11.5-14.5 [facility] CentralUqjrlzkZDMYFSYFID2051-15-47 12:25:00 Test Item Value Reference Range Interpretation Comments Platelet (test code = Platelet) 421 133-450 [facility] CentralLnggewbNPACWUQRZR2834-16-31 12:25:00 Test Item Value Reference Range Interpretation Comments MPV (test code = MPV) 8.9 7.4-10.4 [facility]2021-08-21 12:25:007[facility] 2021-02-11 12:[facility].60[facility] 12:25:00 Test Item Value Reference Range Interpretation Comments Iron (test code = Iron) 30 [facility]2021-08-21 12:25:00 Test Item Value Reference Range Interpretation Comments TIBC (test code = TIBC) 252 [facility]2021-08-21 12:25:00 Test Item Value Reference Range Interpretation Comments % Satur Fe (test code = % Satur Fe) 12 [facility]2021-08-21 12:25:00 Test Item Value Reference Range Interpretation Comments Glucose Lvl (test code = Glucose Lvl) 99 70-99 [facility]2021-08-21 12:25:003.6[facility] 2021-02-11 12:25:00 Test Item Value Reference Range Interpretation Comments BUN (test code = BUN) 7 7-22 [facility]2021-08-21 12:25:00 Test Item Value Reference Range Interpretation Comments Creatinine Lvl (test code = Creatinine 0.60 0.50-1.40 Lvl) [facility]2021-08-21 12:25:00 Test Item Value Reference Range Interpretation Comments Sodium Lvl (test code = Sodium Lvl) 148 135-145 [place] 853501-08-21 12:25:00 Test Item Value Reference Range Interpretation Comments Potassium Lvl (test code = Potassium 3.6 3.5-5.1 Lvl) [place] 853501-08-21 12:25:00 Test Item Value Reference Range Interpretation Comments Chloride Lvl (test code = Chloride Lvl) 116 95-109 [place] 853501-08-21 12:25:00 Test Item Value Reference Range Interpretation Comments CO2 (test code = CO2) 24 24-32 [place] 853501-08-21 12:25:00 Test Item Value Reference Range Interpretation Comments Calcium Lvl (test code = Calcium Lvl) 8.5 8.5-10.5 [place] 853501-08-21 12:25:00 Test Item Value Reference Range Interpretation Comments AGAP (test code = AGAP) 11.6 10.0-20.0 [place] 853501-08-21 12:25:00 Test Item Value Reference Range Interpretation Comments eGFR (test code = eGFR) 94 [place] 139731-08-21 12:25:00 Test Item Value Reference Range Interpretation Comments Segs (test code = Segs) 60.4 45.0-75.0 [place] 139731-08-21 12:25:00 Test Item Value Reference Range Interpretation Comments Lymphocytes (test code = Lymphocytes) 28.7 20.0-40.0 [place] [address]-08-21 12:25:00 Test Item Value Reference Range Interpretation Comments Monocytes (test code = Monocytes) 7.2 2.0-12.0 [place] [address]-08-21 12:25:00 Test Item Value Reference Range Interpretation Comments Eosinophils (test code = 2.8 See_Comment [A utomated message] The Eosinophils) system which ge nerated this result tra nsmitted reference range : <=4.0. The reference r arelis was not used to int erpret this result as normal/abnormal . [place] 139731-08-21 12:25:00 Test Item Value Reference Range Interpretation Comments Basophils (test code = 0.9 See_Comment [Aut omated message] The Basophils) system which ge nerated this result tra nsmitted reference range : <=1.0. The reference r arelis was not used to int erpret this result as normal/abnormal . [place] 139731-08-21 12:25:00 Test Item Value Reference Range Interpretation Comments Neutrophils # (test code = Neutrophils 4.0 1.5-8.1 #) [facility] CentralRzhrqxrMKCHFEXMCX6275-99-01 12:25:00 Test Item Value Reference Range Interpretation Comments Lymphocytes # (test code = Lymphocytes 1.9 1.0-5.5 #) [place] 139731-08-21 12:25:00 Test Item Value Reference Range Interpretation Comments Monocytes # (test code 0.5 See_Comment [Aut omated message] The = Monocytes #) system which generated this result tra nsmitted reference range : <=0.8. The reference r arelis was not used to int erpret this result as normal/abnormal . [place] 139731-08-21 12:25:00 Test Item Value Reference Range Interpretation Comments Eosinophils # (test code 0.2 See_Comment [A utomated message] The = Eosinophils #) system whic h generated this result tra nsmitted reference range : <=0.5. The reference r arelis was not used to int erpret this result as normal/abnormal . [facility] CentralDldzgffJBIIKGJVNU2362-57-02 12:25:00 Test Item Value Reference Range Interpretation Comments Basophils # (test code 0.1 See_Comment [Aut omated message] The = Basophils #) system which generated this result tra nsmitted reference range : <=0.2. The reference r arelis was not used to int erpret this result as normal/abnormal . [place] 139731-08-21 12:25:00 Test Item Value Reference Range Interpretation Comments PTT (test code = PTT) 32.8 s 22.9-35.8 [place] 139731-08-21 12:25:00 Test Item Value Reference Range Interpretation Comments PT (test code = PT) 17.0 s 12.0-14.7 [place] 139731-08-21 12:25:00 Test Item Value Reference Range Interpretation Comments INR (test code = INR) 1.41 1 0.85-1.17 [place] [address]-08-21 12:25:00 Test Item Value Reference Range Interpretation Comments WBC (test code = WBC) 6.6 3.7-10.4 [facility] CentralMlaffadFHBICLSPQH0648-80-84 12:25:00 Test Item Value Reference Range Interpretation Comments RBC (test code = RBC) 2.58 4.20-5.40 [facility] CentralAixpmntDSXXOOCHSG6423-08-16 12:25:00 Test Item Value Reference Range Interpretation Comments Hgb (test code = Hgb) 7.6 12.0-16.0 [facility] CentralKavtrjoXKNZLGWUBW7701-50-98 12:25:00 Test Item Value Reference Range Interpretation Comments Hct (test code = Hct) 22.8 36.0-48.0 [facility] CentralGhdehezIJCOXFROJM8405-63-49 12:25:00 Test Item Value Reference Range Interpretation Comments MCV (test code = MCV) 88.2 80.0-98.0 [facility] CentralFvfadgxEQJJQLVLVD7990-83-29 12:25:00 Test Item Value Reference Range Interpretation Comments MCH (test code = MCH) 29.6 pg 27.0-31.0 [facility] CentralAoajzmvPGWYPCYHUY6931-71-33 12:25:00 Test Item Value Reference Range Interpretation Comments MCHC (test code = MCHC) 33.6 32.0-36.0 [facility] CentralLbnzexfEYPFJGLCKW7353-29-15 12:25:00 Test Item Value Reference Range Interpretation Comments RDW (test code = RDW) 15.2 11.5-14.5 [facility] CentralLruzaavKFVMRIGNUY5992-59-39 12:25:00 Test Item Value Reference Range Interpretation Comments Platelet (test code = Platelet) 421 133-450 [facility] CentralOyuwzzvMIOEUMKTDJ8708-17-69 12:25:00 Test Item Value Reference Range Interpretation Comments MPV (test code = MPV) 8.9 7.4-10.4 [facility]2021-08-21 12:25:31145[facility] STUDY 2021-02-11 12:21:00 Test Item Value Reference Range Interpretation Comments Ferritin Lvl (test code = Ferritin Lvl) 25 5-204 [facility] [id number] 12:21:00 Test Item Value Reference Range Interpretation Comments Folate Lvl (test code = Folate Lvl) 9.8 [facility]2021-08-21 12:21:00 Test Item Value Reference Range Interpretation Comments Vitamin B12 Lvl (test code = Vitamin 235 B12 Lvl) [facility] CentralLycmeedYIYKAWTCSJ5119-33-16 12:21:00 Test Item Value Reference Range Interpretation Comments Retic Auto (test code = Retic Auto) 4.7 0.5-1.5 [facility]2021-08-21 12:21:00 Test Item Value Reference Range Interpretation Comments Ferritin Lvl (test code = Ferritin Lvl) 25 [facility]2021-08-21 12:21:00 Test Item Value Reference Range Interpretation Comments Folate Lvl (test code = Folate Lvl) 9.8 [facility]2021-08-21 12:21:00 Test Item Value Reference Range Interpretation Comments Vitamin B12 Lvl (test code = Vitamin 235 B12 Lvl) [facility] CentralAfxybttZKSGINPJXX7728-73-91 12:21:00 Test Item Value Reference Range Interpretation Comments Retic Auto (test code = Retic Auto) 4.7 0.5-1.5 [facility]2021-08-21 12:21:00 Test Item Value Reference Range Interpretation Comments Ferritin Lvl (test code = Ferritin Lvl) 25 [facility]2021-08-21 12:21:00 Test Item Value Reference Range Interpretation Comments Folate Lvl (test code = Folate Lvl) 9.8 [facility]2021-08-21 12:21:00 Test Item Value Reference Range Interpretation Comments Vitamin B12 Lvl (test code = Vitamin 235 B12 Lvl) [facility] CentralSwkcuikHJPKAFWFDQ0159-74-44 12:21:00 Test Item Value Reference Range Interpretation Comments Retic Auto (test code = Retic Auto) 4.7 0.5-1.5 [facility]2021-08-21 12:21:00 Test Item Value Reference Range Interpretation Comments Ferritin Lvl (test code = Ferritin Lvl) 25 [facility]2021-08-21 12:21:00 Test Item Value Reference Range Interpretation Comments Folate Lvl (test code = Folate Lvl) 9.8 [facility]2021-08-21 12:21:00 Test Item Value Reference Range Interpretation Comments Vitamin B12 Lvl (test code = Vitamin 235 B12 Lvl) [facility] CentralPqpisynMWQASFGTUB6969-94-28 12:21:00 Test Item Value Reference Range Interpretation Comments Retic Auto (test code = Retic Auto) 4.7 0.5-1.5 [facility]2021-08-21 12:21:00 Test Item Value Reference Range Interpretation Comments Ferritin Lvl (test code = Ferritin Lvl) [facility]2021-08-21 12:21:00 Test Item Value Reference Range Interpretation Comments Folate Lvl (test code = Folate Lvl) 9.8 [facility]2021-08-21 12:21:00 Test Item Value Reference Range Interpretation Comments Vitamin B12 Lvl (test code = Vitamin 235 B12 Lvl) [facility] CentralVeihvbzMTJEVSTJPH4840-28-62 12:21:00 Test Item Value Reference Range Interpretation Comments Retic Auto (test code = Retic Auto) 4.7 0.5-1.5 [facility]2021-08-21 12:21:00 Test Item Value Reference Range Interpretation Comments Ferritin Lvl (test code = Ferritin Lvl) [facility]2021-08-21 12:21:00 Test Item Value Reference Range Interpretation Comments Folate Lvl (test code = Folate Lvl) 9.8 [facility]2021-08-21 12:21:00 Test Item Value Reference Range Interpretation Comments Vitamin B12 Lvl (test code = Vitamin 235 B12 Lvl) [facility] CentralXjovehqLAXCQIBZYI7952-43-54 12:21:00 Test Item Value Reference Range Interpretation Comments Retic Auto (test code = Retic Auto) 4.7 0.5-1.5 [facility]2021-08-21 12:21:00 Test Item Value Reference Range Interpretation Comments Ferritin Lvl (test code = Ferritin Lvl) [facility]2021-08-21 12:21:00 Test Item Value Reference Range Interpretation Comments Folate Lvl (test code = Folate Lvl) 9.8 [facility]2021-08-21 12:21:00 Test Item Value Reference Range Interpretation Comments Vitamin B12 Lvl (test code = Vitamin 235 B12 Lvl) [facility] CentralFladdywDJAMKDNTPF0803-79-22 12:21:00 Test Item Value Reference Range Interpretation Comments Retic Auto (test code = Retic Auto) 4.7 0.5-1.5 [facility]2021-08-21 12:21:00 Test Item Value Reference Range Interpretation Comments Ferritin Lvl (test code = Ferritin Lvl) [facility]2021-08-21 12:21:00 Test Item Value Reference Range Interpretation Comments Folate Lvl (test code = Folate Lvl) 9.8 [facility]2021-08-21 12:21:00 Test Item Value Reference Range Interpretation Comments Vitamin B12 Lvl (test code = Vitamin 235 B12 Lvl) [facility] CentralJmahftbDMGQPVOAFA6166-08-95 12:21:00 Test Item Value Reference Range Interpretation Comments Retic Auto (test code = Retic Auto) 4.7 0.5-1.5 [facility]2021-08-21 12:21:00 Test Item Value Reference Range Interpretation Comments Ferritin Lvl (test code = Ferritin Lvl) [facility]2021-08-21 12:21:00 Test Item Value Reference Range Interpretation Comments Folate Lvl (test code = Folate Lvl) 9.8 [facility]2021-08-21 12:21:00 Test Item Value Reference Range Interpretation Comments Vitamin B12 Lvl (test code = Vitamin 235 B12 Lvl) [facility] Centr[id number] 12:21:00 Test Item Value Reference Range Interpretation Comments Retic Auto (test code = Retic Auto) 4.7 0.5-1.5 [facility]2021-08-21 12:21:0025[facility] STUDY 2021-02-11 12:21:009.8[facility] [id number] 12:21:76204DutpnowbMidCoast [facility] Center – CentralBtwnsxsSEXDKIWADE4592-47-10 12:21:004.7[facility] JPSCS3267-63-21 12:21:00 Test Item Value Reference Range Interpretation Comments Ferritin Lvl (test code = Ferritin Lvl) [facility]2021-08-21 12:21:00 Test Item Value Reference Range Interpretation Comments Folate Lvl (test code = Folate Lvl) 9.8 [facility]2021-08-21 12:21:00 Test Item Value Reference Range Interpretation Comments Vitamin B12 Lvl (test code = Vitamin 235 B12 Lvl) [facility] CentralVondgotVLGNZEPCRN2498-21-13 12:21:00 Test Item Value Reference Range Interpretation Comments Retic Auto (test code = Retic Auto) 4.7 0.5-1.5 [facility]2021-08-21 12:21:00 Test Item Value Reference Range Interpretation Comments Ferritin Lvl (test code = Ferritin Lvl) 25 [facility]2021-08-21 12:21:00 Test Item Value Reference Range Interpretation Comments Folate Lvl (test code = Folate Lvl) 9.8 [facility]2021-08-21 12:21:00 Test Item Value Reference Range Interpretation Comments Vitamin B12 Lvl (test code = Vitamin 235 B12 Lvl) [facility] CentralHvidwzqTQHKYHRWEA7394-45-53 12:21:00 Test Item Value Reference Range Interpretation Comments Retic Auto (test code = Retic Auto) 4.7 0.5-1.5 [facility]2021-08-21 12:21:00 Test Item Value Reference Range Interpretation Comments Ferritin Lvl (test code = Ferritin Lvl) 25 [facility]2021-08-21 12:21:00 Test Item Value Reference Range Interpretation Comments Folate Lvl (test code = Folate Lvl) 9.8 [facility]2021-08-21 12:21:00 Test Item Value Reference Range Interpretation Comments Vitamin B12 Lvl (test code = Vitamin 235 B12 Lvl) [facility] CentralDoyffflYAACGHLDOZ6379-62-39 12:21:00 Test Item Value Reference Range Interpretation Comments Retic Auto (test code = Retic Auto) 4.7 0.5-1.5 [facility]2021-08-21 12:21:00 Test Item Value Reference Range Interpretation Comments Ferritin Lvl (test code = Ferritin Lvl) 25 [facility]2021-08-21 12:21:00 Test Item Value Reference Range Interpretation Comments Folate Lvl (test code = Folate Lvl) 9.8 [facility]2021-08-21 12:21:00 Test Item Value Reference Range Interpretation Comments Vitamin B12 Lvl (test code = Vitamin 235 B12 Lvl) [facility] CentralNgghdkxWPSTQHGDHW9126-48-06 12:21:00 Test Item Value Reference Range Interpretation Comments Retic Auto (test code = Retic Auto) 4.7 0.5-1.5 [facility]2021-08-21 12:21:00 Test Item Value Reference Range Interpretation Comments Ferritin Lvl (test code = Ferritin Lvl) [facility]2021-08-21 12:21:00 Test Item Value Reference Range Interpretation Comments Folate Lvl (test code = Folate Lvl) 9.8 [facility]2021-08-21 12:21:00 Test Item Value Reference Range Interpretation Comments Vitamin B12 Lvl (test code = Vitamin 235 B12 Lvl) [id number] 12:21:00 Test Item Value Reference Range Interpretation Comments Retic Auto (test code = Retic Auto) 4.7 0.5-1.5 [facility] [place]2021-08-21 12:21:00 Test Item Value Reference Range Interpretation Comments Ferritin Lvl (test code = Ferritin Lvl) 25 [facility] [place]2021-08-21 12:21:00 Test Item Value Reference Range Interpretation Comments Folate Lvl (test code = Folate Lvl) 9.8 [facility] [place]2021-08-21 12:21:00 Test Item Value Reference Range Interpretation Comments Vitamin B12 Lvl (test code = Vitamin 235 B12 Lvl) [facility] [id number] 12:21:00 Test Item Value Reference Range Interpretation Comments Retic Auto (test code = Retic Auto) 4.7 0.5-1.5 [facility] [place]2021-08-21 12:21:00 Test Item Value Reference Range Interpretation Comments Ferritin Lvl (test code = Ferritin Lvl) [facility] [place]2021-08-21 12:21:00 Test Item Value Reference Range Interpretation Comments Folate Lvl (test code = Folate Lvl) 9.8 [facility] [place]2021-08-21 12:21:00 Test Item Value Reference Range Interpretation Comments Vitamin B12 Lvl (test code = Vitamin 235 B12 Lvl) [facility] [id number] 12:21:00 Test Item Value Reference Range Interpretation Comments Retic Auto (test code = Retic Auto) 4.7 0.5-1.5 [facility] [place]2021-08-21 12:21:00 Test Item Value Reference Range Interpretation Comments Ferritin Lvl (test code = Ferritin Lvl) 25 [facility] [place]2021-08-21 12:21:00 Test Item Value Reference Range Interpretation Comments Folate Lvl (test code = Folate Lvl) 9.8 [facility] [place]2021-08-21 12:21:00 Test Item Value Reference Range Interpretation Comments Vitamin B12 Lvl (test code = Vitamin 235 B12 Lvl) [facility] [id number] 12:21:00 Test Item Value Reference Range Interpretation Comments Retic Auto (test code = Retic Auto) 4.7 0.5-1.5 [facility] [place]2021-08-21 12:21:00 Test Item Value Reference Range Interpretation Comments Ferritin Lvl (test code = Ferritin Lvl) [facility] [place]2021-08-21 12:21:00 Test Item Value Reference Range Interpretation Comments Folate Lvl (test code = Folate Lvl) 9. [facility] [place]2021-08-21 12:21:00 Test Item Value Reference Range Interpretation Comments Vitamin B12 Lvl (test code = Vitamin 235 B12 Lvl) [facility] [id number] 12:21:00 Test Item Value Reference Range Interpretation Comments Retic Auto (test code = Retic Auto) 4.7 0.5-1.5 [facility] [place]2021-08-21 12:21:00 Test Item Value Reference Range Interpretation Comments Ferritin Lvl (test code = Ferritin Lvl) 25 [facility] [place]2021-08-21 12:21:00 Test Item Value Reference Range Interpretation Comments Folate Lvl (test code = Folate Lvl) 9.8 [facility] [place]2021-08-21 12:21:00 Test Item Value Reference Range Interpretation Comments Vitamin B12 Lvl (test code = Vitamin 235 B12 Lvl) [facility] [id number] 12:21:00 Test Item Value Reference Range Interpretation Comments Retic Auto (test code = Retic Auto) 4.7 0.5-1.5 [facility] [place]2021-08-21 12:21:00 Test Item Value Reference Range Interpretation Comments Ferritin Lvl (test code = Ferritin Lvl) 25 [facility] [place]2021-08-21 12:21:00 Test Item Value Reference Range Interpretation Comments Folate Lvl (test code = Folate Lvl) 9.8 [facility] [place]2021-08-21 12:21:00 Test Item Value Reference Range Interpretation Comments Vitamin B12 Lvl (test code = Vitamin 235 B12 Lvl) [facility] [id number] 12:21:00 Test Item Value Reference Range Interpretation Comments Retic Auto (test code = Retic Auto) 4.7 0.5-1.5 [facility] [place]2021-08-21 12:21:00 Test Item Value Reference Range Interpretation Comments Ferritin Lvl (test code = Ferritin Lvl) [facility] [place]2021-08-21 12:21:00 Test Item Value Reference Range Interpretation Comments Folate Lvl (test code = Folate Lvl) 9.8 [facility] [place]2021-08-21 12:21:00 Test Item Value Reference Range Interpretation Comments Vitamin B12 Lvl (test code = Vitamin 235 B12 Lvl) [facility] [id number] 12:21:00 Test Item Value Reference Range Interpretation Comments Retic Auto (test code = Retic Auto) 4.7 0.5-1.5 [facility] [place]2021-08-21 12:21:00 Test Item Value Reference Range Interpretation Comments Ferritin Lvl (test code = Ferritin Lvl) [facility] [place]2021-08-21 12:21:00 Test Item Value Reference Range Interpretation Comments Folate Lvl (test code = Folate Lvl) 9.8 [facility] [place]2021-08-21 12:21:00 Test Item Value Reference Range Interpretation Comments Vitamin B12 Lvl (test code = Vitamin 235 B12 Lvl) [facility] [id number] 12:21:00 Test Item Value Reference Range Interpretation Comments Retic Auto (test code = Retic Auto) 4.7 0.5-1.5 [facility] [place]2021-08-21 12:21:00 Test Item Value Reference Range Interpretation Comments Ferritin Lvl (test code = Ferritin Lvl) [facility] [place]2021-08-21 12:21:00 Test Item Value Reference Range Interpretation Comments Folate Lvl (test code = Folate Lvl) 9.8 [facility] [place]2021-08-21 12:21:00 Test Item Value Reference Range Interpretation Comments Vitamin B12 Lvl (test code = Vitamin 235 B12 Lvl) [facility] [id number] 12:21:00 Test Item Value Reference Range Interpretation Comments Retic Auto (test code = Retic Auto) 4.7 0.5-1.5 [facility] [place]2021-08-21 12:21:00 Test Item Value Reference Range Interpretation Comments Ferritin Lvl (test code = Ferritin Lvl) [facility] [place]2021-08-21 12:21:00 Test Item Value Reference Range Interpretation Comments Folate Lvl (test code = Folate Lvl) 9.8 [facility] [place]2021-08-21 12:21:00 Test Item Value Reference Range Interpretation Comments Vitamin B12 Lvl (test code = Vitamin 235 B12 Lvl) [facility] [id number] 12:21:00 Test Item Value Reference Range Interpretation Comments Retic Auto (test code = Retic Auto) 4.7 0.5-1.5 [facility] [place]2021-08-21 12:21:00 Test Item Value Reference Range Interpretation Comments Ferritin Lvl (test code = Ferritin Lvl) [facility] [place]2021-08-21 12:21:00 Test Item Value Reference Range Interpretation Comments Folate Lvl (test code = Folate Lvl) 9.8 [facility] [place]2021-08-21 12:21:00 Test Item Value Reference Range Interpretation Comments Vitamin B12 Lvl (test code = Vitamin 235 B12 Lvl) [facility] [id number] 12:21:00 Test Item Value Reference Range Interpretation Comments Retic Auto (test code = Retic Auto) 4.7 0.5-1.5 [facility] [place]2021-08-21 12:21:00 Test Item Value Reference Range Interpretation Comments Ferritin Lvl (test code = Ferritin Lvl) 25 [facility] [place]2021-08-21 12:21:00 Test Item Value Reference Range Interpretation Comments Folate Lvl (test code = Folate Lvl) 9.8 [facility] [place]2021-08-21 12:21:00 Test Item Value Reference Range Interpretation Comments Vitamin B12 Lvl (test code = Vitamin 235 B12 Lvl) [facility] [id number] 12:21:00 Test Item Value Reference Range Interpretation Comments Retic Auto (test code = Retic Auto) 4.7 0.5-1.5 [facility] [place]2021-08-21 12:21:00 Test Item Value Reference Range Interpretation Comments Ferritin Lvl (test code = Ferritin Lvl) [facility] [place]2021-08-21 12:21:00 Test Item Value Reference Range Interpretation Comments Folate Lvl (test code = Folate Lvl) 9.8 [facility] [place]2021-08-21 12:21:00 Test Item Value Reference Range Interpretation Comments Vitamin B12 Lvl (test code = Vitamin 235 B12 Lvl) [facility] [id number] 12:21:00 Test Item Value Reference Range Interpretation Comments Retic Auto (test code = Retic Auto) 4.7 0.5-1.5 [facility] [place]2021-08-21 12:21:00 Test Item Value Reference Range Interpretation Comments Ferritin Lvl (test code = Ferritin Lvl) [facility] [place]2021-08-21 12:21:00 Test Item Value Reference Range Interpretation Comments Folate Lvl (test code = Folate Lvl) 9. [facility] [place]2021-08-21 12:21:00 Test Item Value Reference Range Interpretation Comments Vitamin B12 Lvl (test code = Vitamin 235 B12 Lvl) [facility] [id number] 12:21:00 Test Item Value Reference Range Interpretation Comments Retic Auto (test code = Retic Auto) 4.7 0.5-1.5 [facility] [place]2021-08-21 12:21:00 Test Item Value Reference Range Interpretation Comments Ferritin Lvl (test code = Ferritin Lvl) [facility] [place]2021-08-21 12:21:00 Test Item Value Reference Range Interpretation Comments Folate Lvl (test code = Folate Lvl) 9.8 [facility] [place]2021-08-21 12:21:00 Test Item Value Reference Range Interpretation Comments Vitamin B12 Lvl (test code = Vitamin 235 B12 Lvl) [facility] [id number] 12:21:00 Test Item Value Reference Range Interpretation Comments Retic Auto (test code = Retic Auto) 4.7 0.5-1.5 [facility] [place]2021-08-21 12:21:00 Test Item Value Reference Range Interpretation Comments Ferritin Lvl (test code = Ferritin Lvl) [facility] [place]2021-08-21 12:21:00 Test Item Value Reference Range Interpretation Comments Folate Lvl (test code = Folate Lvl) 9.8 [facility] [place]2021-08-21 12:21:00 Test Item Value Reference Range Interpretation Comments Vitamin B12 Lvl (test code = Vitamin 235 B12 Lvl) [facility] [id number] 12:21:00 Test Item Value Reference Range Interpretation Comments Retic Auto (test code = Retic Auto) 4.7 0.5-1.5 [facility] [place]2021-08-21 12:21:00 Test Item Value Reference Range Interpretation Comments Ferritin Lvl (test code = Ferritin Lvl) [facility] [place]2021-08-21 12:21:00 Test Item Value Reference Range Interpretation Comments Folate Lvl (test code = Folate Lvl) 9.8 [facility] [place]2021-08-21 12:21:00 Test Item Value Reference Range Interpretation Comments Vitamin B12 Lvl (test code = Vitamin 235 B12 Lvl) [facility] [id number] 12:21:00 Test Item Value Reference Range Interpretation Comments Retic Auto (test code = Retic Auto) 4.7 0.5-1.5 [facility] [place]2021-08-21 12:21:00 Test Item Value Reference Range Interpretation Comments Ferritin Lvl (test code = Ferritin Lvl) 25 [facility] [place]2021-08-21 12:21:00 Test Item Value Reference Range Interpretation Comments Folate Lvl (test code = Folate Lvl) 9.8 [facility] [place]2021-08-21 12:21:00 Test Item Value Reference Range Interpretation Comments Vitamin B12 Lvl (test code = Vitamin 235 B12 Lvl) [facility] [id number] 12:21:00 Test Item Value Reference Range Interpretation Comments Retic Auto (test code = Retic Auto) 4.7 0.5-1.5 [facility] [place]2021-08-21 12:21:00 Test Item Value Reference Range Interpretation Comments Ferritin Lvl (test code = Ferritin Lvl) 25 [facility] [place]2021-08-21 12:21:00 Test Item Value Reference Range Interpretation Comments Folate Lvl (test code = Folate Lvl) 9.8 [facility] [place]2021-08-21 12:21:00 Test Item Value Reference Range Interpretation Comments Vitamin B12 Lvl (test code = Vitamin 235 B12 Lvl) [facility] [id number] 12:21:00 Test Item Value Reference Range Interpretation Comments Retic Auto (test code = Retic Auto) 4.7 0.5-1.5 [facility] [place]2021-08-21 12:21:00 Test Item Value Reference Range Interpretation Comments Ferritin Lvl (test code = Ferritin Lvl) 25 [facility] [place]2021-08-21 12:21:00 Test Item Value Reference Range Interpretation Comments Folate Lvl (test code = Folate Lvl) 9.8 [facility] [place]2021-08-21 12:21:00 Test Item Value Reference Range Interpretation Comments Vitamin B12 Lvl (test code = Vitamin 235 B12 Lvl) [facility] [id number] 12:21:00 Test Item Value Reference Range Interpretation Comments Retic Auto (test code = Retic Auto) 4.7 0.5-1.5 [facility] [place]2021-08-21 12:21:00 Test Item Value Reference Range Interpretation Comments Ferritin Lvl (test code = Ferritin Lvl) [facility] [place]2021-08-21 12:21:00 Test Item Value Reference Range Interpretation Comments Folate Lvl (test code = Folate Lvl) 9.8 [facility] [place]2021-08-21 12:21:00 Test Item Value Reference Range Interpretation Comments Vitamin B12 Lvl (test code = Vitamin 235 B12 Lvl) [facility] [id number] 12:21:00 Test Item Value Reference Range Interpretation Comments Retic Auto (test code = Retic Auto) 4.7 0.5-1.5 [facility] [place]2021-08-21 12:21:00 Test Item Value Reference Range Interpretation Comments Ferritin Lvl (test code = Ferritin Lvl) 25 [facility] [place]2021-08-21 12:21:00 Test Item Value Reference Range Interpretation Comments Folate Lvl (test code = Folate Lvl) 9.8 [facility] [place]2021-08-21 12:21:00 Test Item Value Reference Range Interpretation Comments Vitamin B12 Lvl (test code = Vitamin 235 B12 Lvl) [facility] [id number] 12:21:00 Test Item Value Reference Range Interpretation Comments Retic Auto (test code = Retic Auto) 4.7 0.5-1.5 [facility] [place]2021-08-21 12:21:00 Test Item Value Reference Range Interpretation Comments Ferritin Lvl (test code = Ferritin Lvl) 25 [facility] [place]2021-08-21 12:21:00 Test Item Value Reference Range Interpretation Comments Folate Lvl (test code = Folate Lvl) 9.8 [facility] [place]2021-08-21 12:21:00 Test Item Value Reference Range Interpretation Comments Vitamin B12 Lvl (test code = Vitamin 235 B12 Lvl) [facility] [id number] 12:21:00 Test Item Value Reference Range Interpretation Comments Retic Auto (test code = Retic Auto) 4.7 0.5-1.5 [facility] [place]2021-08-21 12:21:00 Test Item Value Reference Range Interpretation Comments Ferritin Lvl (test code = Ferritin Lvl) 25 [facility] [place]2021-08-21 12:21:00 Test Item Value Reference Range Interpretation Comments Folate Lvl (test code = Folate Lvl) 9.8 [facility] [place]2021-08-21 12:21:00 Test Item Value Reference Range Interpretation Comments Vitamin B12 Lvl (test code = Vitamin 235 B12 Lvl) [facility] [id number] 12:21:00 Test Item Value Reference Range Interpretation Comments Retic Auto (test code = Retic Auto) 4.7 0.5-1.5 [facility] [place]2021-08-21 12:21:00 Test Item Value Reference Range Interpretation Comments Ferritin Lvl (test code = Ferritin Lvl) 25 [facility] [id number] 12:21:00 Test Item Value Reference Range Interpretation Comments Folate Lvl (test code = Folate Lvl) 9.8 [facility] [place]2021-08-21 12:21:00 Test Item Value Reference Range Interpretation Comments Vitamin B12 Lvl (test code = Vitamin 235 B12 Lvl) [facility] [id number] 12:21:00 Test Item Value Reference Range Interpretation Comments Retic Auto (test code = Retic Auto) 4.7 0.5-1.5 [facility] [id number] 12:21:00 Test Item Value Reference Range Interpretation Comments Ferritin Lvl (test code = Ferritin Lvl) [facility] [id number] 12:21:00 Test Item Value Reference Range Interpretation Comments Folate Lvl (test code = Folate Lvl) 9.8 [facility] [place]2021-08-21 12:21:00 Test Item Value Reference Range Interpretation Comments Vitamin B12 Lvl (test code = Vitamin 235 B12 Lvl) [facility] [id number] 12:21:00 Test Item Value Reference Range Interpretation Comments Retic Auto (test code = Retic Auto) 4.7 0.5-1.5 [facility] [id number] 11:59:00 Test Item Value Reference Range Interpretation Comments RBC product (test code Product available = RBC product) 4(02/11/21 6:59 AM) [facility] [id number] 11:59:00 Test Item Value Reference Range Interpretation Comments RBC product (test code Product available = RBC product) 4(02/11/21 6:59 AM) [facility] [id number] 11:59:00 Test Item Value Reference Range Interpretation Comments RBC product (test code Product available = RBC product) 4(02/11/21 6:59 AM) [facility] [id number] 11:59:00 Test Item Value Reference Range Interpretation Comments RBC product (test code Product available = RBC product) 4(02/11/21 6:59 AM) [facility] [id number] 11:59:00 Test Item Value Reference Range Interpretation Comments RBC product (test code Product available = RBC product) 4(02/11/21 6:59 AM) [facility] [id number] 11:59:00 Test Item Value Reference Range Interpretation Comments RBC product (test code Product available = RBC product) 4(02/11/21 6:59 AM) [facility] [id number] 11:59:00 Test Item Value Reference Range Interpretation Comments RBC product (test code Product available = RBC product) 4(02/11/21 6:59 AM) [facility] [id number] 11:59:00 Test Item Value Reference Range Interpretation Comments RBC product (test code Product available = RBC product) 4(02/11/21 6:59 AM) [facility] [id number] 11:59:00 Test Item Value Reference Range Interpretation Comments RBC product (test code Product available = RBC product) 4(02/11/21 6:59 AM) [facility] [id number] 11:59:00 Test Item Value Reference Range Interpretation Comments RBC product (test code Product available = RBC product) 4(02/11/21 6:59 AM) [facility] [id number] 11:59:00Product available 4(02/11/21 6:59 AM)[facility] [id number] 11:59:00 Test Item Value Reference Range Interpretation Comments RBC product (test code Product available = RBC product) 4(02/11/21 6:59 AM) [facility] [id number] 11:59:00 Test Item Value Reference Range Interpretation Comments RBC product (test code Product available = RBC product) 4(02/11/21 6:59 AM) [facility] [id number] 11:59:00 Test Item Value Reference Range Interpretation Comments RBC product (test code Product available = RBC product) 4(02/11/21 6:59 AM) [facility] [id number] 11:59:00 Test Item Value Reference Range Interpretation Comments RBC product (test code Product available = RBC product) 4(02/11/21 6:59 AM) [facility] [id number] 11:59:00 Test Item Value Reference Range Interpretation Comments RBC product (test code Product available = RBC product) 4(02/11/21 6:59 AM) [facility] [id number] 11:59:00 Test Item Value Reference Range Interpretation Comments RBC product (test code Product available = RBC product) 4(02/11/21 6:59 AM) [facility] [id number] 11:59:00 Test Item Value Reference Range Interpretation Comments RBC product (test code Product available = RBC product) 4(02/11/21 6:59 AM) [facility] [id number] 11:59:00 Test Item Value Reference Range Interpretation Comments RBC product (test code Product available = RBC product) 4(02/11/21 6:59 AM) [facility] [id number] 11:59:00 Test Item Value Reference Range Interpretation Comments RBC product (test code Product available = RBC product) 4(02/11/21 6:59 AM) [facility] [id number] 11:59:00 Test Item Value Reference Range Interpretation Comments RBC product (test code Product available = RBC product) 4(02/11/21 6:59 AM) [facility] [id number] 11:59:00 Test Item Value Reference Range Interpretation Comments RBC product (test code Product available = RBC product) 4(02/11/21 6:59 AM) [facility] [id number] 11:59:00 Test Item Value Reference Range Interpretation Comments RBC product (test code Product available = RBC product) 4(02/11/21 6:59 AM) [facility] [id number] 11:59:00 Test Item Value Reference Range Interpretation Comments RBC product (test code Product available = RBC product) 4(02/11/21 6:59 AM) [facility] [id number] 11:59:00 Test Item Value Reference Range Interpretation Comments RBC product (test code Product available = RBC product) 4(02/11/21 6:59 AM) [facility] [id number] 11:59:00 Test Item Value Reference Range Interpretation Comments RBC product (test code Product available = RBC product) 4(02/11/21 6:59 AM) [facility] [id number] 11:59:00 Test Item Value Reference Range Interpretation Comments RBC product (test code Product available = RBC product) 4(02/11/21 6:59 AM) [facility] [id number] 11:59:00 Test Item Value Reference Range Interpretation Comments RBC product (test code Product available = RBC product) 4(02/11/21 6:59 AM) [facility] [id number] 11:59:00 Test Item Value Reference Range Interpretation Comments RBC product (test code Product available = RBC product) 4(02/11/21 6:59 AM) [facility] [id number] 11:59:00 Test Item Value Reference Range Interpretation Comments RBC product (test code Product available = RBC product) 4(02/11/21 6:59 AM) [facility] [id number] 11:59:00 Test Item Value Reference Range Interpretation Comments RBC product (test code Product available = RBC product) 4(02/11/21 6:59 AM) [facility] [id number] 11:59:00 Test Item Value Reference Range Interpretation Comments RBC product (test code Product available = RBC product) 4(02/11/21 6:59 AM) [facility] [id number] 11:59:00 Test Item Value Reference Range Interpretation Comments RBC product (test code Product available = RBC product) 4(02/11/21 6:59 AM) [facility] [id number] 11:59:00 Test Item Value Reference Range Interpretation Comments RBC product (test code Product available = RBC product) 4(02/11/21 6:59 AM) [facility] [id number] 11:59:00 Test Item Value Reference Range Interpretation Comments RBC product (test code Product available = RBC product) 4(02/11/21 6:59 AM) [facility] [id number] 11:59:00 Test Item Value Reference Range Interpretation Comments RBC product (test code Product available = RBC product) 4(02/11/21 6:59 AM) [facility] [id number] 11:59:00 Test Item Value Reference Range Interpretation Comments RBC product (test code Product available = RBC product) 4(02/11/21 6:59 AM) [facility] [id number] 11:59:00 Test Item Value Reference Range Interpretation Comments RBC product (test code Product available = RBC product) 4(02/11/21 6:59 AM) [facility] [id number] 11:59:00 Test Item Value Reference Range Interpretation Comments RBC product (test code Product available = RBC product) 4(02/11/21 6:59 AM) [facility] [id number] 11:59:00 Test Item Value Reference Range Interpretation Comments RBC product (test code Product available = RBC product) 4(02/11/21 6:59 AM) [facility] [id number] 11:59:00 Test Item Value Reference Range Interpretation Comments RBC product (test code Product available = RBC product) 4(02/11/21 6:59 AM) [facility]WbyswskRVJZDANONP0435-22-77 05:57:00 Test Item Value Reference Range Interpretation Comments Hgb (test code = Hgb) 7.2 12.0-16.0 [facility] CentralPkpgxjlGHSGHIEYLQ8653-53-76 05:57:00 Test Item Value Reference Range Interpretation Comments Hct (test code = Hct) 22.3 36.0-48.0 [facility] CentralBqmzljnZBLHWKKALT8871-95-06 05:57:00 Test Item Value Reference Range Interpretation Comments Hgb (test code = Hgb) 7.2 12.0-16.0 [facility] CentralYsoznaqSNOKLVFLLC5677-20-82 05:57:00 Test Item Value Reference Range Interpretation Comments Hct (test code = Hct) 22.3 36.0-48.0 [facility] CentralYukekfeDEYJGIEPET6107-86-62 05:57:00 Test Item Value Reference Range Interpretation Comments Hgb (test code = Hgb) 7.2 12.0-16.0 [facility] CentralOwfjwrmPSEUTTNMBB3729-44-75 05:57:00 Test Item Value Reference Range Interpretation Comments Hct (test code = Hct) 22.3 36.0-48.0 [facility] CentralRjhechvXQXFCAARHS5408-30-96 05:57:00 Test Item Value Reference Range Interpretation Comments Hgb (test code = Hgb) 7.2 12.0-16.0 [facility] CentralQigrzvjVAARZIAZCL5178-20-16 05:57:00 Test Item Value Reference Range Interpretation Comments Hct (test code = Hct) 22.3 36.0-48.0 [facility] CentralElhknurYNUZSEHNQY6661-97-33 05:57:00 Test Item Value Reference Range Interpretation Comments Hgb (test code = Hgb) 7.2 12.0-16.0 [facility] CentralSsyumpvJGULEIMHHA9952-80-89 05:57:00 Test Item Value Reference Range Interpretation Comments Hct (test code = Hct) 22.3 36.0-48.0 [facility] CentralGfzblxhQZSHHXTTMZ2052-19-90 05:57:00 Test Item Value Reference Range Interpretation Comments Hgb (test code = Hgb) 7.2 12.0-16.0 [facility] CentralPselajgZEZCJNPBHF3489-13-67 05:57:00 Test Item Value Reference Range Interpretation Comments Hct (test code = Hct) 22.3 36.0-48.0 [facility] CentralJxjtlxdYSQFLBTXER4080-01-92 05:57:00 Test Item Value Reference Range Interpretation Comments Hgb (test code = Hgb) 7.2 12.0-16.0 [facility] CentralRgehnkxHOIVIFGRHB8583-40-02 05:57:00 Test Item Value Reference Range Interpretation Comments Hct (test code = Hct) 22.3 36.0-48.0 [facility] CentralKotuedlLCUVOSKRAV2692-77-92 05:57:00 Test Item Value Reference Range Interpretation Comments Hgb (test code = Hgb) 7.2 12.0-16.0 [facility] CentralUjncvlfMQWNFGPRDN9914-71-78 05:57:00 Test Item Value Reference Range Interpretation Comments Hct (test code = Hct) 22.3 36.0-48.0 [facility] CentralJxkpwyhHFBZLCXQHP1173-41-17 05:57:00 Test Item Value Reference Range Interpretation Comments Hgb (test code = Hgb) 7.2 12.0-16.0 [facility] CentralBifolspPESQAOPQVX6359-24-34 05:57:00 Test Item Value Reference Range Interpretation Comments Hct (test code = Hct) 22.3 36.0-48.0 [facility] CentralWjffshjFHNGYDADDB0691-21-52 05:57:00 Test Item Value Reference Range Interpretation Comments Hgb (test code = Hgb) 7.2 12.0-16.0 [facility]ebmAOJDSQPVLK5380-63-92 05:57:00 Test Item Value Reference Range Interpretation Comments Hct (test code = Hct) 22.3 36.0-48.0 [facility]PigwsqpUHZODMWAOM9876-07-75 [facility]:57[facility].3[facility] YnwnazjSJJUXWMAGW7631-13-08 05:57:00 Test Item Value Reference Range Interpretation Comments Hgb (test code = Hgb) 7.2 12.0-16.0 [facility] HospitalEshkhqxFKGAFTGTQF6847-08-63 05:57:00 Test Item Value Reference Range Interpretation Comments Hct (test code = Hct) 22.3 36.0-48.0 [facility]MnbbohcJZUBJUEBOL9003-80-53 05:57:00 Test Item Value Reference Range Interpretation Comments Hgb (test code = Hgb) 7.2 12.0-16.0 [facility]borEiktmiwZAXQRVNEIH5783-37-94 05:57:00 Test Item Value Reference Range Interpretation Comments Hct (test code = Hct) 22.3 36.0-48.0 [facility] HospitalQjtpaqyDKIFVMMHLF7072-81-99 05:57:00 Test Item Value Reference Range Interpretation Comments Hgb (test code = Hgb) 7.2 12.0-16.0 [facility] CampusYddmfqiBMTYKUSMFV6265-74-87 05:57:00 Test Item Value Reference Range Interpretation Comments Hct (test code = Hct) 22.3 36.0-48.0 [facility] CampusIvrisjrOKYJPIROFF0995-33-68 05:57:00 Test Item Value Reference Range Interpretation Comments Hgb (test code = Hgb) 7.2 12.0-16.0 [facility] HospitalPrcfamwWUTFJIGRJB8832-53-84 05:57:00 Test Item Value Reference Range Interpretation Comments Hct (test code = Hct) 22.3 36.0-48.0 [facility] HospitalBbjqrqeUCATKVUSII9460-66-66 05:57:00 Test Item Value Reference Range Interpretation Comments Hgb (test code = Hgb) 7.2 12.0-16.0 [facility]borZkljheaBXOJNNHOXH0413-70-76 05:57:00 Test Item Value Reference Range Interpretation Comments Hct (test code = Hct) 22.3 36.0-48.0 [facility]borZeckwdiSGABWLVHUF5902-03-89 05:57:00 Test Item Value Reference Range Interpretation Comments Hgb (test code = Hgb) 7.2 12.0-16.0 [facility]borEgtreaxABVLMNQQJN8953-50-01 05:57:00 Test Item Value Reference Range Interpretation Comments Hct (test code = Hct) 22.3 36.0-48.0 [facility]borPlxlbjaAUCJXEAPRW9362-50-47 05:57:00 Test Item Value Reference Range Interpretation Comments Hgb (test code = Hgb) 7.2 12.0-16.0 [facility]borIuueybpZKOBYDVQCH0419-62-11 05:57:00 Test Item Value Reference Range Interpretation Comments Hct (test code = Hct) 22.3 36.0-48.0 [facility] CentralVmumzgnMXOYIFKMFZ0339-93-79 05:57:00 Test Item Value Reference Range Interpretation Comments Hgb (test code = Hgb) 7.2 12.0-16.0 [facility] CentralKzfndsxCKCBHBXIHT7278-56-13 05:57:00 Test Item Value Reference Range Interpretation Comments Hct (test code = Hct) 22.3 36.0-48.0 [facility] CentralPkcnfxoAYWIHKNPHY6058-14-91 05:57:00 Test Item Value Reference Range Interpretation Comments Hgb (test code = Hgb) 7.2 12.0-16.0 [facility] CentralRgshqsfGHAKWOEFOG9836-71-93 05:57:00 Test Item Value Reference Range Interpretation Comments Hct (test code = Hct) 22.3 36.0-48.0 [facility] CentralHhlboifTEHTJYZPYM4945-50-25 05:57:00 Test Item Value Reference Range Interpretation Comments Hgb (test code = Hgb) 7.2 12.0-16.0 [facility]borJgyurnrBTRTLHQUGQ1766-92-78 05:57:00 Test Item Value Reference Range Interpretation Comments Hct (test code = Hct) 22.3 36.0-48.0 [facility]borHscghwkLVSXOTBOMI0467-50-02 05:57:00 Test Item Value Reference Range Interpretation Comments Hgb (test code = Hgb) 7.2 12.0-16.0 [facility] CentralArmtjbuUIAZPVXSYI0943-04-27 05:57:00 Test Item Value Reference Range Interpretation Comments Hct (test code = Hct) 22.3 36.0-48.0 [place] 139731-08-21 05:57:00 Test Item Value Reference Range Interpretation Comments Hgb (test code = Hgb) 7.2 12.0-16.0 [facility] CentralZkyuaiaQGDVRTDRZF3781-33-49 05:57:00 Test Item Value Reference Range Interpretation Comments Hct (test code = Hct) 22.3 36.0-48.0 [facility] CentralXisorcaKSYBPQFXMR7993-67-63 05:57:00 Test Item Value Reference Range Interpretation Comments Hgb (test code = Hgb) 7.2 12.0-16.0 [facility] CentralCufojqgXCOBUPKDTR9586-24-04 05:57:00 Test Item Value Reference Range Interpretation Comments Hct (test code = Hct) 22.3 36.0-48.0 [facility] CentralWmtlxzwEUVFVFJMTG2236-52-68 05:57:00 Test Item Value Reference Range Interpretation Comments Hgb (test code = Hgb) 7.2 12.0-16.0 [facility] CentralDwmredlSVRCVQNFQI5030-16-88 05:57:00 Test Item Value Reference Range Interpretation Comments Hct (test code = Hct) 22.3 36.0-48.0 [facility] CentralCalazikISFBALYLFS8323-17-91 05:57:00 Test Item Value Reference Range Interpretation Comments Hgb (test code = Hgb) 7.2 12.0-16.0 [facility] CentralIssndjgGLTBTWSXHQ1898-21-23 05:57:00 Test Item Value Reference Range Interpretation Comments Hct (test code = Hct) 22.3 36.0-48.0 [facility] CentralGkbaemzKRQHCPXXCS4240-15-30 05:57:00 Test Item Value Reference Range Interpretation Comments Hgb (test code = Hgb) 7.2 12.0-16.0 [facility] CentralYruusgmHBPTQBSMWG5774-92-69 05:57:00 Test Item Value Reference Range Interpretation Comments Hct (test code = Hct) 22.3 36.0-48.0 [facility] CentralRwchrfaTNTMCCUECM7344-43-39 05:57:00 Test Item Value Reference Range Interpretation Comments Hgb (test code = Hgb) 7.2 12.0-16.0 [facility] CentralZfsglcfJWWYMSWDXB5077-52-25 05:57:00 Test Item Value Reference Range Interpretation Comments Hct (test code = Hct) 22.3 36.0-48.0 [facility] CentralTypdgnsDPRBIJSQOC0032-21-39 05:57:00 Test Item Value Reference Range Interpretation Comments Hgb (test code = Hgb) 7.2 12.0-16.0 [facility] CentralSopgswsJFFKHUPQHM2919-87-41 05:57:00 Test Item Value Reference Range Interpretation Comments Hct (test code = Hct) 22.3 36.0-48.0 [facility] CentralSmsjvbwIKPEJLSPBL8392-20-36 05:57:00 Test Item Value Reference Range Interpretation Comments Hgb (test code = Hgb) 7.2 12.0-16.0 [facility] CentralFypnpdaZWFICLGQSD5631-98-03 05:57:00 Test Item Value Reference Range Interpretation Comments Hct (test code = Hct) 22.3 36.0-48.0 [facility] CentralHsynywyMSUJBTJMAE9562-49-16 05:57:00 Test Item Value Reference Range Interpretation Comments Hgb (test code = Hgb) 7.2 12.0-16.0 [facility] CentralTcevollMCTERFRRHB7837-40-82 05:57:00 Test Item Value Reference Range Interpretation Comments Hct (test code = Hct) 22.3 36.0-48.0 [facility] CentralHpvzmagAZSLBHQVOG5475-42-94 05:57:00 Test Item Value Reference Range Interpretation Comments Hgb (test code = Hgb) 7.2 12.0-16.0 [facility] CentralJlqznulOTGSEMOLUG2842-57-10 05:57:00 Test Item Value Reference Range Interpretation Comments Hct (test code = Hct) 22.3 36.0-48.0 [facility] CentralHvcihuxIVKLEWRTBF4089-10-04 05:57:00 Test Item Value Reference Range Interpretation Comments Hgb (test code = Hgb) 7.2 12.0-16.0 [facility] CentralUrqixnnEKQHYFEURK5542-96-28 05:57:00 Test Item Value Reference Range Interpretation Comments Hct (test code = Hct) 22.3 36.0-48.0 [facility] CentralNnkylbvSWHOKKBLIU8810-47-96 05:57:00 Test Item Value Reference Range Interpretation Comments Hgb (test code = Hgb) 7.2 12.0-16.0 [facility] CentralKvmpafnTQJRVUDQTD9717-55-92 05:57:00 Test Item Value Reference Range Interpretation Comments Hct (test code = Hct) 22.3 36.0-48.0 [facility] CentralEnwdxraLNDYWIAVEA0711-84-67 05:57:00 Test Item Value Reference Range Interpretation Comments Hgb (test code = Hgb) 7.2 12.0-16.0 [facility] CentralRapmshoHYEUDAQPDG7881-09-18 05:57:00 Test Item Value Reference Range Interpretation Comments Hct (test code = Hct) 22.3 36.0-48.0 [facility] CentralNulcistJVCOWMXRDI6752-42-13 05:57:00 Test Item Value Reference Range Interpretation Comments Hgb (test code = Hgb) 7.2 12.0-16.0 [facility] CentralWvbhbzdLFIXZAFZOM0676-71-79 05:57:00 Test Item Value Reference Range Interpretation Comments Hct (test code = Hct) 22.3 36.0-48.0 [facility] CentralJeqrnarGUXNNNPRZM9367-47-14 05:57:00 Test Item Value Reference Range Interpretation Comments Hgb (test code = Hgb) 7.2 12.0-16.0 [facility] CentralXosyrjcPVWQGXPJPI9697-54-34 05:57:00 Test Item Value Reference Range Interpretation Comments Hct (test code = Hct) 22.3 36.0-48.0 [facility] CentralTivhfscYARUBARQUC7899-87-81 05:57:00 Test Item Value Reference Range Interpretation Comments Hgb (test code = Hgb) 7.2 12.0-16.0 [facility] CentralGujmtmlCQTGXTZDDA7335-55-99 05:57:00 Test Item Value Reference Range Interpretation Comments Hct (test code = Hct) 22.3 36.0-48.0 [facility] CentralEtawfucONZAUPSGPJ7328-72-32 05:57:00 Test Item Value Reference Range Interpretation Comments Hgb (test code = Hgb) 7.2 12.0-16.0 [facility] CentralHrotkroUVETATOJNU5646-50-15 05:57:00 Test Item Value Reference Range Interpretation Comments Hct (test code = Hct) 22.3 36.0-48.0 [facility] CentralHuepmsnETWQIYPOGU6300-06-02 05:57:00 Test Item Value Reference Range Interpretation Comments Hgb (test code = Hgb) 7.2 12.0-16.0 [facility] CentralZhdrryfCNBQDXCYWO5580-94-86 05:57:00 Test Item Value Reference Range Interpretation Comments Hct (test code = Hct) 22.3 36.0-48.0 [facility] CentralLoypeukIXOFRXDFBT6604-06-97 05:57:00 Test Item Value Reference Range Interpretation Comments Hgb (test code = Hgb) 7.2 12.0-16.0 [facility] CentralCxcjmmeBUAHRDPBRM7590-81-15 05:57:00 Test Item Value Reference Range Interpretation Comments Hct (test code = Hct) 22.3 36.0-48.0 [facility] CentralGjpriwdWSPEHURRFY6313-82-24 18:05:00 Test Item Value Reference Range Interpretation Comments WBC (test code = WBC) 8.2 3.7-10.4 [facility] CentralGlmpktoMAZXWZSNPE6326-84-42 18:05:00 Test Item Value Reference Range Interpretation Comments RBC (test code = RBC) 2.71 4.20-5.40 [facility] CentralBjknywkXTOESHOYUV1189-53-49 18:05:00 Test Item Value Reference Range Interpretation Comments MCV (test code = MCV) 88.3 80.0-98.0 [facility] CentralCeghdxcMOTRLMWTTN8976-61-20 18:05:00 Test Item Value Reference Range Interpretation Comments MCH (test code = MCH) 28.5 pg 27.0-31.0 [facility] CentralBlvwcqpVKQYQVTRGG6413-61-01 18:05:00 Test Item Value Reference Range Interpretation Comments MCHC (test code = MCHC) 32.3 32.0-36.0 [facility] CentralApedjnwLJDPNMXXQU1779-42-01 18:05:00 Test Item Value Reference Range Interpretation Comments RDW (test code = RDW) 14.9 11.5-14.5 [facility] CentralJneceyeNYTXKTCLNG1995-01-91 18:05:00 Test Item Value Reference Range Interpretation Comments Platelet (test code = Platelet) 408 133-450 [facility] CentralYbjkliiSJNETJPUMD9878-21-92 18:05:00 Test Item Value Reference Range Interpretation Comments MPV (test code = MPV) 8.8 7.4-10.4 [facility] CentralJgbqyvkKVRCFVYNHB3044-35-66 18:05:00 Test Item Value Reference Range Interpretation Comments Segs (test code = Segs) 63.7 45.0-75.0 [facility] CentralHgqfnaxILCYVFANGH2353-20-95 18:05:00 Test Item Value Reference Range Interpretation Comments Lymphocytes (test code = Lymphocytes) 26.6 20.0-40.0 [facility] CentralKbtjfycAOQSFAVNYC5424-70-62 18:05:00 Test Item Value Reference Range Interpretation Comments Monocytes (test code = Monocytes) 6.2 2.0-12.0 [facility] CentralItckukuQNIMTAUXRY7807-46-04 18:05:00 Test Item Value Reference Range Interpretation Comments Eosinophils (test code = 2.6 See_Comment [A utomated message] The Eosinophils) system which ge nerated this result tra nsmitted reference range : <=4.0. The reference r arelis was not used to int erpret this result as normal/abnormal . [facility] CentralRzjlqvzYPGJLYTFYG1615-67-02 18:05:00 Test Item Value Reference Range Interpretation Comments Basophils (test code = 0.9 See_Comment [Aut omated message] The Basophils) system which ge nerated this result tra nsmitted reference range : <=1.0. The reference r arelis was not used to int erpret this result as normal/abnormal . [facility] CentralYwdvssmIZORXCHXYH2099-35-18 18:05:00 Test Item Value Reference Range Interpretation Comments Neutrophils # (test code = Neutrophils 5.2 1.5-8.1 #) [facility] CentralQrqapcnJXFIMNVOQX6066-79-94 18:05:00 Test Item Value Reference Range Interpretation Comments Lymphocytes # (test code = Lymphocytes 2.2 1.0-5.5 #) [facility] CentralZeihfanXWGVNWVVPX2186-67-09 18:05:00 Test Item Value Reference Range Interpretation Comments Monocytes # (test code 0.5 See_Comment [Aut omated message] The = Monocytes #) system which generated this result tra nsmitted reference range : <=0.8. The reference r arelis was not used to int erpret this result as normal/abnormal . [facility] CentralNdgtmbvGKOCVWFMKY6811-33-08 18:05:00 Test Item Value Reference Range Interpretation Comments Eosinophils # (test code 0.2 See_Comment [A utomated message] The = Eosinophils #) system whic h generated this result tra nsmitted reference range : <=0.5. The reference r arelis was not used to int erpret this result as normal/abnormal . [facility] CentralUaiixziLVUYDVWFJE7660-47-89 18:05:00 Test Item Value Reference Range Interpretation Comments Basophils # (test code 0.1 See_Comment [Aut omated message] The = Basophils #) system which generated this result tra nsmitted reference range : <=0.2. The reference r arelis was not used to int erpret this result as normal/abnormal . [facility] CentralXctcobkIXZDDBICVI2981-71-58 18:05:00 Test Item Value Reference Range Interpretation Comments WBC (test code = WBC) 8.2 3.7-10.4 [facility] CentralSuuguriLJUFCJZYEA4479-00-59 18:05:00 Test Item Value Reference Range Interpretation Comments RBC (test code = RBC) 2.71 4.20-5.40 [facility] CentralAsauzfoCMZZFVDWZJ4737-04-20 18:05:00 Test Item Value Reference Range Interpretation Comments MCV (test code = MCV) 88.3 80.0-98.0 [facility] CentralAamcxssWUYSHHVCXR0362-02-81 18:05:00 Test Item Value Reference Range Interpretation Comments MCH (test code = MCH) 28.5 pg 27.0-31.0 [facility] CentralLpscmjyBIVJZSTGHQ6929-01-64 18:05:00 Test Item Value Reference Range Interpretation Comments MCHC (test code = MCHC) 32.3 32.0-36.0 [facility] CentralFasuvssPMJFJGXYTZ8906-79-65 18:05:00 Test Item Value Reference Range Interpretation Comments RDW (test code = RDW) 14.9 11.5-14.5 [facility] CentralVogwuqcLFRPUTQTNG3515-23-67 18:05:00 Test Item Value Reference Range Interpretation Comments Platelet (test code = Platelet) 408 133-450 [facility] CentralDozbrxkJTUTESBAXX4472-04-74 18:05:00 Test Item Value Reference Range Interpretation Comments MPV (test code = MPV) 8.8 7.4-10.4 [facility] CentralUxrisiwAXRFLFVXOG9155-24-97 18:05:00 Test Item Value Reference Range Interpretation Comments Segs (test code = Segs) 63.7 45.0-75.0 [facility] CentralJmkqhpiDEYIDTPRJK7701-19-28 18:05:00 Test Item Value Reference Range Interpretation Comments Lymphocytes (test code = Lymphocytes) 26.6 20.0-40.0 [facility] CentralPrbvjqvDTDQYHZBUN4633-40-42 18:05:00 Test Item Value Reference Range Interpretation Comments Monocytes (test code = Monocytes) 6.2 2.0-12.0 [facility] CentralSeukywaZRIVKXXTVR3903-69-89 18:05:00 Test Item Value Reference Range Interpretation Comments Eosinophils (test code = 2.6 See_Comment [A utomated message] The Eosinophils) system which ge nerated this result tra nsmitted reference range : <=4.0. The reference r arelis was not used to int erpret this result as normal/abnormal . [facility] CentralUghpfuqYXWLPETOJX9746-99-19 18:05:00 Test Item Value Reference Range Interpretation Comments Basophils (test code = 0.9 See_Comment [Aut omated message] The Basophils) system which ge nerated this result tra nsmitted reference range : <=1.0. The reference r arelis was not used to int erpret this result as normal/abnormal . [facility] CentralZrqkwctPFRSGPAAQD5631-90-74 18:05:00 Test Item Value Reference Range Interpretation Comments Neutrophils # (test code = Neutrophils 5.2 1.5-8.1 #) [facility] CentralYajysvxJBGBYNNKFG6748-17-02 18:05:00 Test Item Value Reference Range Interpretation Comments Lymphocytes # (test code = Lymphocytes 2.2 1.0-5.5 #) [facility] CentralYzqpevmGVXWJASRLG4799-30-63 18:05:00 Test Item Value Reference Range Interpretation Comments Monocytes # (test code 0.5 See_Comment [Aut omated message] The = Monocytes #) system which generated this result tra nsmitted reference range : <=0.8. The reference r arelis was not used to int erpret this result as normal/abnormal . [facility] CentralRyrezyuYJEKUMDSIG6983-00-58 18:05:00 Test Item Value Reference Range Interpretation Comments Eosinophils # (test code 0.2 See_Comment [A utomated message] The = Eosinophils #) system whic h generated this result tra nsmitted reference range : <=0.5. The reference r arelis was not used to int erpret this result as normal/abnormal . [facility] CentralLkvombaLOVZNNPQBD4869-17-72 18:05:00 Test Item Value Reference Range Interpretation Comments Basophils # (test code 0.1 See_Comment [Aut omated message] The = Basophils #) system which generated this result tra nsmitted reference range : <=0.2. The reference r arelis was not used to int erpret this result as normal/abnormal . [facility] CentralLbcqqwoXQUFDCTENR5102-35-33 18:05:00 Test Item Value Reference Range Interpretation Comments WBC (test code = WBC) 8.2 3.7-10.4 [facility] CentralQjjasfuOLCDXWJUBX1245-37-01 18:05:00 Test Item Value Reference Range Interpretation Comments RBC (test code = RBC) 2.71 4.20-5.40 [facility] CentralVtnlwfoAARXCWOAQO3668-55-65 18:05:00 Test Item Value Reference Range Interpretation Comments MCV (test code = MCV) 88.3 80.0-98.0 [facility] CentralTxwdmutHCKSPCBHZN8396-48-80 18:05:00 Test Item Value Reference Range Interpretation Comments MCH (test code = MCH) 28.5 pg 27.0-31.0 [facility] CentralNhxgudjFVESJIBRUX9520-05-37 18:05:00 Test Item Value Reference Range Interpretation Comments MCHC (test code = MCHC) 32.3 32.0-36.0 [facility] CentralClluifyORBDMXNDCI7633-04-27 18:05:00 Test Item Value Reference Range Interpretation Comments RDW (test code = RDW) 14.9 11.5-14.5 [facility] CentralYwxzqihMDWPYMEYFA1624-05-86 18:05:00 Test Item Value Reference Range Interpretation Comments Platelet (test code = Platelet) 408 133-450 [facility] CentralMepaluqZZROFCOKFE3516-23-62 18:05:00 Test Item Value Reference Range Interpretation Comments MPV (test code = MPV) 8.8 7.4-10.4 [facility] CentralSjpnkeyWMQYWHJDQJ6199-15-88 18:05:00 Test Item Value Reference Range Interpretation Comments Segs (test code = Segs) 63.7 45.0-75.0 [facility] CentralNdapskaGENLMLUKZA1014-25-29 18:05:00 Test Item Value Reference Range Interpretation Comments Lymphocytes (test code = Lymphocytes) 26.6 20.0-40.0 [facility] CentralHgwbjhsOYKPEMEYZK2971-11-23 18:05:00 Test Item Value Reference Range Interpretation Comments Monocytes (test code = Monocytes) 6.2 2.0-12.0 [facility] CentralDczbrxcCDTQXHXUWH6009-33-99 18:05:00 Test Item Value Reference Range Interpretation Comments Eosinophils (test code = 2.6 See_Comment [A utomated message] The Eosinophils) system which ge nerated this result tra nsmitted reference range : <=4.0. The reference r arelis was not used to int erpret this result as normal/abnormal . [facility] CentralHmoluvlMKCJKWDWPY9426-28-68 18:05:00 Test Item Value Reference Range Interpretation Comments Basophils (test code = 0.9 See_Comment [Aut omated message] The Basophils) system which ge nerated this result tra nsmitted reference range : <=1.0. The reference r arelis was not used to int erpret this result as normal/abnormal . [facility] CentralIeouutnYAKWCNVRXJ7818-16-48 18:05:00 Test Item Value Reference Range Interpretation Comments Neutrophils # (test code = Neutrophils 5.2 1.5-8.1 #) [facility] CentralFugoaemXBSUVPBPYZ7772-99-15 18:05:00 Test Item Value Reference Range Interpretation Comments Lymphocytes # (test code = Lymphocytes 2.2 1.0-5.5 #) [facility] CentralIxkxwsnZVWSMUCCUD5445-31-18 18:05:00 Test Item Value Reference Range Interpretation Comments Monocytes # (test code 0.5 See_Comment [Aut omated message] The = Monocytes #) system which generated this result tra nsmitted reference range : <=0.8. The reference r arelis was not used to int erpret this result as normal/abnormal . [facility] CentralAtpqauwXKKJWCLBHS6959-06-90 18:05:00 Test Item Value Reference Range Interpretation Comments Eosinophils # (test code 0.2 See_Comment [A utomated message] The = Eosinophils #) system whic h generated this result tra nsmitted reference range : <=0.5. The reference r arelis was not used to int erpret this result as normal/abnormal . [facility] CentralHzzjgdqKXCNDQXVPA5078-24-30 18:05:00 Test Item Value Reference Range Interpretation Comments Basophils # (test code 0.1 See_Comment [Aut omated message] The = Basophils #) system which generated this result tra nsmitted reference range : <=0.2. The reference r arelis was not used to int erpret this result as normal/abnormal . [facility] CentralDtfzxkyOCRNQIEUAH6555-79-36 18:05:00 Test Item Value Reference Range Interpretation Comments WBC (test code = WBC) 8.2 3.7-10.4 [facility] CentralUjynjncXLZHLLBSHT3645-31-76 18:05:00 Test Item Value Reference Range Interpretation Comments RBC (test code = RBC) 2.71 4.20-5.40 [place] 139731-08-20 18:05:00 Test Item Value Reference Range Interpretation Comments MCV (test code = MCV) 88.3 80.0-98.0 [place] 139731-08-20 18:05:00 Test Item Value Reference Range Interpretation Comments MCH (test code = MCH) 28.5 pg 27.0-31.0 [facility] CentralLigmncyMOEPUZPQBO0327-43-95 18:05:00 Test Item Value Reference Range Interpretation Comments MCHC (test code = MCHC) 32.3 32.0-36.0 [facility] CentralQuxkneqWFKENACNLX5017-99-11 18:05:00 Test Item Value Reference Range Interpretation Comments RDW (test code = RDW) 14.9 11.5-14.5 [facility] CentralGjzavmxGRCWKAULMW3825-61-26 18:05:00 Test Item Value Reference Range Interpretation Comments Platelet (test code = Platelet) 408 133-450 [facility] CentralTullobfTMORARKTHU7989-41-72 18:05:00 Test Item Value Reference Range Interpretation Comments MPV (test code = MPV) 8.8 7.4-10.4 [facility] CentralIbwiwdcVBHKSIUEKX2703-05-08 18:05:00 Test Item Value Reference Range Interpretation Comments Segs (test code = Segs) 63.7 45.0-75.0 [facility] CentralNdlrxxiGTDOWIGZIM9714-68-09 18:05:00 Test Item Value Reference Range Interpretation Comments Lymphocytes (test code = Lymphocytes) 26.6 20.0-40.0 [facility] CentralVnhomawFFPHVQCCTY4741-43-49 18:05:00 Test Item Value Reference Range Interpretation Comments Monocytes (test code = Monocytes) 6.2 2.0-12.0 [facility] CentralDlhhhqgTIOOZSCYIC2389-48-48 18:05:00 Test Item Value Reference Range Interpretation Comments Eosinophils (test code = 2.6 See_Comment [A utomated message] The Eosinophils) system which ge nerated this result tra nsmitted reference range : <=4.0. The reference r arelis was not used to int erpret this result as normal/abnormal . [facility] CentralRjxlnyaHBVUHAHXXN9226-54-59 18:05:00 Test Item Value Reference Range Interpretation Comments Basophils (test code = 0.9 See_Comment [Aut omated message] The Basophils) system which ge nerated this result tra nsmitted reference range : <=1.0. The reference r arelis was not used to int erpret this result as normal/abnormal . [facility] CentralLqwvweeXGTAXZJLKU3680-50-21 18:05:00 Test Item Value Reference Range Interpretation Comments Neutrophils # (test code = Neutrophils 5.2 1.5-8.1 #) [facility] CentralFjvvaoePYOBCHZUFC6294-43-24 18:05:00 Test Item Value Reference Range Interpretation Comments Lymphocytes # (test code = Lymphocytes 2.2 1.0-5.5 #) [facility] CentralCsasviwEQRSCROHZK9914-81-52 18:05:00 Test Item Value Reference Range Interpretation Comments Monocytes # (test code 0.5 See_Comment [Aut omated message] The = Monocytes #) system which generated this result tra nsmitted reference range : <=0.8. The reference r arelis was not used to int erpret this result as normal/abnormal . [facility] CentralRoumeubFOBLMIMNID5869-96-63 18:05:00 Test Item Value Reference Range Interpretation Comments Eosinophils # (test code 0.2 See_Comment [A utomated message] The = Eosinophils #) system whic h generated this result tra nsmitted reference range : <=0.5. The reference r arelis was not used to int erpret this result as normal/abnormal . [facility] CentralJmaptohUPRMRLQTQA0993-40-11 18:05:00 Test Item Value Reference Range Interpretation Comments Basophils # (test code 0.1 See_Comment [Aut omated message] The = Basophils #) system which generated this result tra nsmitted reference range : <=0.2. The reference r arelis was not used to int erpret this result as normal/abnormal . [facility] CentralDuzmwarKTFVCTWOFX8869-42-90 18:05:00 Test Item Value Reference Range Interpretation Comments WBC (test code = WBC) 8.2 3.7-10.4 [facility] CentralPzyftvxFIREFGDVAU9903-90-67 18:05:00 Test Item Value Reference Range Interpretation Comments RBC (test code = RBC) 2.71 4.20-5.40 [place] 139731-08-20 18:05:00 Test Item Value Reference Range Interpretation Comments MCV (test code = MCV) 88.3 80.0-98.0 [place] 139731-08-20 18:05:00 Test Item Value Reference Range Interpretation Comments MCH (test code = MCH) 28.5 pg 27.0-31.0 [place] 139731-08-20 18:05:00 Test Item Value Reference Range Interpretation Comments MCHC (test code = MCHC) 32.3 32.0-36.0 [facility] CentralWwqypclCSLYNKLTET0525-85-77 18:05:00 Test Item Value Reference Range Interpretation Comments RDW (test code = RDW) 14.9 11.5-14.5 [place] 139731-08-20 18:05:00 Test Item Value Reference Range Interpretation Comments Platelet (test code = Platelet) 408 133-450 [facility] CentralDknbnxrXJRCBOSHLE8744-90-55 18:05:00 Test Item Value Reference Range Interpretation Comments MPV (test code = MPV) 8.8 7.4-10.4 [place] 139731-08-20 18:05:00 Test Item Value Reference Range Interpretation Comments Segs (test code = Segs) 63.7 45.0-75.0 [facility] CentralVquwuluEDRXCSEMAA8258-79-48 18:05:00 Test Item Value Reference Range Interpretation Comments Lymphocytes (test code = Lymphocytes) 26.6 20.0-40.0 [facility] CentralNxiloqaIMNDMILEBP4295-48-69 18:05:00 Test Item Value Reference Range Interpretation Comments Monocytes (test code = Monocytes) 6.2 2.0-12.0 [facility] CentralFjbqizpFQNFURQVVE9143-39-29 18:05:00 Test Item Value Reference Range Interpretation Comments Eosinophils (test code = 2.6 See_Comment [A utomated message] The Eosinophils) system which ge nerated this result tra nsmitted reference range : <=4.0. The reference r arelis was not used to int erpret this result as normal/abnormal . [facility] CentralZctywuuHPJDZKMZBG2272-90-95 18:05:00 Test Item Value Reference Range Interpretation Comments Basophils (test code = 0.9 See_Comment [Aut omated message] The Basophils) system which ge nerated this result tra nsmitted reference range : <=1.0. The reference r arelis was not used to int erpret this result as normal/abnormal . [facility] CentralMiggbldIWTHKMAWPL1495-40-66 18:05:00 Test Item Value Reference Range Interpretation Comments Neutrophils # (test code = Neutrophils 5.2 1.5-8.1 #) [facility] CentralSmoluyuGVDVWCPIPW6227-21-45 18:05:00 Test Item Value Reference Range Interpretation Comments Lymphocytes # (test code = Lymphocytes 2.2 1.0-5.5 #) [facility] CentralApybuwyEEGTISMTDQ7443-12-71 18:05:00 Test Item Value Reference Range Interpretation Comments Monocytes # (test code 0.5 See_Comment [Aut omated message] The = Monocytes #) system which generated this result tra nsmitted reference range : <=0.8. The reference r arelis was not used to int erpret this result as normal/abnormal . [facility] CentralKixogbgDPIOXXCBBQ2835-38-43 18:05:00 Test Item Value Reference Range Interpretation Comments Eosinophils # (test code 0.2 See_Comment [A utomated message] The = Eosinophils #) system whic h generated this result tra nsmitted reference range : <=0.5. The reference r arelis was not used to int erpret this result as normal/abnormal . [facility] CentralHanuksgNCSXMSUWMQ6122-80-42 18:05:00 Test Item Value Reference Range Interpretation Comments Basophils # (test code 0.1 See_Comment [Aut omated message] The = Basophils #) system which generated this result tra nsmitted reference range : <=0.2. The reference r arelis was not used to int erpret this result as normal/abnormal . [facility] CentralOqrtrmeAKOVRHOFIS8381-00-63 18:05:00 Test Item Value Reference Range Interpretation Comments WBC (test code = WBC) 8.2 3.7-10.4 [facility] CentralGruwpgzSOROYPOIII3147-94-02 18:05:00 Test Item Value Reference Range Interpretation Comments RBC (test code = RBC) 2.71 4.20-5.40 [facility] CentralDbakazoJOLSTLPREU9009-65-81 18:05:00 Test Item Value Reference Range Interpretation Comments MCV (test code = MCV) 88.3 80.0-98.0 [facility] CentralGtzeybcANCRPCWSVM5145-51-06 18:05:00 Test Item Value Reference Range Interpretation Comments MCH (test code = MCH) 28.5 pg 27.0-31.0 [facility] CentralGdftaaeNSSMWIPOWR4560-46-28 18:05:00 Test Item Value Reference Range Interpretation Comments MCHC (test code = MCHC) 32.3 32.0-36.0 [facility] CentralKzbcgiuOFTUWRRJZV5083-23-46 18:05:00 Test Item Value Reference Range Interpretation Comments RDW (test code = RDW) 14.9 11.5-14.5 [facility] CentralJzwqmdrCMEJUUEKDR2867-88-54 18:05:00 Test Item Value Reference Range Interpretation Comments Platelet (test code = Platelet) 408 133-450 [facility] CentralJywpxqxCPBWBRQWOC5285-80-84 18:05:00 Test Item Value Reference Range Interpretation Comments MPV (test code = MPV) 8.8 7.4-10.4 [facility] CentralQigzntcOGRNTKWXCO8888-15-38 18:05:00 Test Item Value Reference Range Interpretation Comments Segs (test code = Segs) 63.7 45.0-75.0 [facility] CentralDyyveeeYYBZDEFGWX5079-07-07 18:05:00 Test Item Value Reference Range Interpretation Comments Lymphocytes (test code = Lymphocytes) 26.6 20.0-40.0 [facility] CentralQaizkygCCSDEEYNHG3214-46-47 18:05:00 Test Item Value Reference Range Interpretation Comments Monocytes (test code = Monocytes) 6.2 2.0-12.0 [facility] CentralIqarbsbEDPGRGWOTP3205-26-87 18:05:00 Test Item Value Reference Range Interpretation Comments Eosinophils (test code = 2.6 See_Comment [A utomated message] The Eosinophils) system which ge nerated this result tra nsmitted reference range : <=4.0. The reference r arelis was not used to int erpret this result as normal/abnormal . [facility] CentralDtqjcbmWZEFNOQWIC4879-13-62 18:05:00 Test Item Value Reference Range Interpretation Comments Basophils (test code = 0.9 See_Comment [Aut omated message] The Basophils) system which ge nerated this result tra nsmitted reference range : <=1.0. The reference r arelis was not used to int erpret this result as normal/abnormal . [facility] CentralAwmzavqDRWANDOZKC0692-56-90 18:05:00 Test Item Value Reference Range Interpretation Comments Neutrophils # (test code = Neutrophils 5.2 1.5-8.1 #) [facility] CentralZpveqxvCPLHMIUWWW2022-33-72 18:05:00 Test Item Value Reference Range Interpretation Comments Lymphocytes # (test code = Lymphocytes 2.2 1.0-5.5 #) [facility] CentralUvxdmxaEQJEWXLSUO4104-50-37 18:05:00 Test Item Value Reference Range Interpretation Comments Monocytes # (test code 0.5 See_Comment [Aut omated message] The = Monocytes #) system which generated this result tra nsmitted reference range : <=0.8. The reference r arelis was not used to int erpret this result as normal/abnormal . [facility] CentralOksxthqPTZQKCCJYD6796-12-32 18:05:00 Test Item Value Reference Range Interpretation Comments Eosinophils # (test code 0.2 See_Comment [A utomated message] The = Eosinophils #) system whic h generated this result tra nsmitted reference range : <=0.5. The reference r arelis was not used to int erpret this result as normal/abnormal . [facility] CentralHmfypogTOSZAJNTPX3009-29-95 18:05:00 Test Item Value Reference Range Interpretation Comments Basophils # (test code 0.1 See_Comment [Aut omated message] The = Basophils #) system which generated this result tra nsmitted reference range : <=0.2. The reference r arelis was not used to int erpret this result as normal/abnormal . [facility] CentralXuaoxycFSDIIYMRVX0490-73-48 18:05:00 Test Item Value Reference Range Interpretation Comments WBC (test code = WBC) 8.2 3.7-10.4 [facility] CentralXhdxbnxHPBBRKKSBE9205-21-50 18:05:00 Test Item Value Reference Range Interpretation Comments RBC (test code = RBC) 2.71 4.20-5.40 [facility] CentralOhnyibkBEXFWKONPB2514-29-09 18:05:00 Test Item Value Reference Range Interpretation Comments MCV (test code = MCV) 88.3 80.0-98.0 [facility] CentralNlzvosrUWTQKACXUF4023-64-21 18:05:00 Test Item Value Reference Range Interpretation Comments MCH (test code = MCH) 28.5 pg 27.0-31.0 [facility] CentralJnptdusELZOZDGAQQ2087-48-07 18:05:00 Test Item Value Reference Range Interpretation Comments MCHC (test code = MCHC) 32.3 32.0-36.0 [facility] CentralJvlhfxcBZHJCPQEPZ5655-07-33 18:05:00 Test Item Value Reference Range Interpretation Comments RDW (test code = RDW) 14.9 11.5-14.5 [facility] CentralIrmeienJZJBFQYNPR0235-68-53 18:05:00 Test Item Value Reference Range Interpretation Comments Platelet (test code = Platelet) 408 133-450 [facility] CentralVlfewmwWXMNEOXDYZ6928-37-78 18:05:00 Test Item Value Reference Range Interpretation Comments MPV (test code = MPV) 8.8 7.4-10.4 [facility] CentralKeyzkwtSFDQAYIKTR2185-96-38 18:05:00 Test Item Value Reference Range Interpretation Comments Segs (test code = Segs) 63.7 45.0-75.0 [facility] CentralQefztlwEKUIAETXWM2624-59-05 18:05:00 Test Item Value Reference Range Interpretation Comments Lymphocytes (test code = Lymphocytes) 26.6 20.0-40.0 [facility] CentralQqkrxltGNZYKPGJDI4163-82-73 18:05:00 Test Item Value Reference Range Interpretation Comments Monocytes (test code = Monocytes) 6.2 2.0-12.0 [facility] CentralOsvcyqaQESHFDUUEX1383-56-40 18:05:00 Test Item Value Reference Range Interpretation Comments Eosinophils (test code = 2.6 See_Comment [A utomated message] The Eosinophils) system which ge nerated this result tra nsmitted reference range : <=4.0. The reference r arelis was not used to int erpret this result as normal/abnormal . [facility] CentralLhkqjjuJFZUCHGCUE1210-82-41 18:05:00 Test Item Value Reference Range Interpretation Comments Basophils (test code = 0.9 See_Comment [Aut omated message] The Basophils) system which ge nerated this result tra nsmitted reference range : <=1.0. The reference r arelis was not used to int erpret this result as normal/abnormal . [facility] CentralTykwjaqHNWKXDUVZV5056-05-54 18:05:00 Test Item Value Reference Range Interpretation Comments Neutrophils # (test code = Neutrophils 5.2 1.5-8.1 #) [facility] CentralZtwgishRSLLWBYPYS1799-80-50 18:05:00 Test Item Value Reference Range Interpretation Comments Lymphocytes # (test code = Lymphocytes 2.2 1.0-5.5 #) [facility] CentralGwgysukQHWIWGCVJB9619-41-32 18:05:00 Test Item Value Reference Range Interpretation Comments Monocytes # (test code 0.5 See_Comment [Aut omated message] The = Monocytes #) system which generated this result tra nsmitted reference range : <=0.8. The reference r arelis was not used to int erpret this result as normal/abnormal . [facility] CentralFywbaadDJNQXCHXGM6691-76-77 18:05:00 Test Item Value Reference Range Interpretation Comments Eosinophils # (test code 0.2 See_Comment [A utomated message] The = Eosinophils #) system whic h generated this result tra nsmitted reference range : <=0.5. The reference r arelis was not used to int erpret this result as normal/abnormal . [facility] CentralUdirnbzPYXBHRWLZK3075-72-70 18:05:00 Test Item Value Reference Range Interpretation Comments Basophils # (test code 0.1 See_Comment [Aut omated message] The = Basophils #) system which generated this result tra nsmitted reference range : <=0.2. The reference r arelis was not used to int erpret this result as normal/abnormal . [facility] CentralNrynuluPHISQEUMDV5854-09-03 18:05:00 Test Item Value Reference Range Interpretation Comments WBC (test code = WBC) 8.2 3.7-10.4 [facility] CentralFlwkqlaQWUCSFNLAL3313-31-33 18:05:00 Test Item Value Reference Range Interpretation Comments RBC (test code = RBC) 2.71 4.20-5.40 [facility] CentralAqrvyaaJWZLNAZKBD8500-88-85 18:05:00 Test Item Value Reference Range Interpretation Comments MCV (test code = MCV) 88.3 80.0-98.0 [facility] CentralGyqdbkjLICKODIPVM1498-47-66 18:05:00 Test Item Value Reference Range Interpretation Comments MCH (test code = MCH) 28.5 pg 27.0-31.0 [facility] CentralZmmzdkkNQYCMKZYJR9900-07-01 18:05:00 Test Item Value Reference Range Interpretation Comments MCHC (test code = MCHC) 32.3 32.0-36.0 [facility] CentralRpgaywjLEVAMRDMJD3171-73-57 18:05:00 Test Item Value Reference Range Interpretation Comments RDW (test code = RDW) 14.9 11.5-14.5 [facility] CentralNidapnsVNBACCMJUZ0045-16-44 18:05:00 Test Item Value Reference Range Interpretation Comments Platelet (test code = Platelet) 408 133-450 [facility] CentralMnkhvtdZWXJYRCURN7209-60-93 18:05:00 Test Item Value Reference Range Interpretation Comments MPV (test code = MPV) 8.8 7.4-10.4 [facility] CentralJjmteyaSKVLOPCYEM7443-10-25 18:05:00 Test Item Value Reference Range Interpretation Comments Segs (test code = Segs) 63.7 45.0-75.0 [facility] CentralZqwhancUEXCHUKAZW3803-17-19 18:05:00 Test Item Value Reference Range Interpretation Comments Lymphocytes (test code = Lymphocytes) 26.6 20.0-40.0 [facility] CentralNzvlpxkSLGLMSXWGA4882-08-07 18:05:00 Test Item Value Reference Range Interpretation Comments Monocytes (test code = Monocytes) 6.2 2.0-12.0 [facility] CentralWwotuyrURLHKJKLKE2677-55-32 18:05:00 Test Item Value Reference Range Interpretation Comments Eosinophils (test code = 2.6 See_Comment [A utomated message] The Eosinophils) system which ge nerated this result tra nsmitted reference range : <=4.0. The reference r arelis was not used to int erpret this result as normal/abnormal . [facility] CentralQvqapwkRIDJBPHNZU4182-96-20 18:05:00 Test Item Value Reference Range Interpretation Comments Basophils (test code = 0.9 See_Comment [Aut omated message] The Basophils) system which ge nerated this result tra nsmitted reference range : <=1.0. The reference r arelis was not used to int erpret this result as normal/abnormal . [facility] CentralHccplxoQDGCCRPOQV5833-85-07 18:05:00 Test Item Value Reference Range Interpretation Comments Neutrophils # (test code = Neutrophils 5.2 1.5-8.1 #) [facility] CentralKejhczbKVXTADIQDI0206-80-17 18:05:00 Test Item Value Reference Range Interpretation Comments Lymphocytes # (test code = Lymphocytes 2.2 1.0-5.5 #) [facility] CentralPkikabnUOWAHTNOVT7690-01-54 18:05:00 Test Item Value Reference Range Interpretation Comments Monocytes # (test code 0.5 See_Comment [Aut omated message] The = Monocytes #) system which generated this result tra nsmitted reference range : <=0.8. The reference r arelis was not used to int erpret this result as normal/abnormal . [facility] CentralSuivbfgELCOFJGDBT9163-33-51 18:05:00 Test Item Value Reference Range Interpretation Comments Eosinophils # (test code 0.2 See_Comment [A utomated message] The = Eosinophils #) system whic h generated this result tra nsmitted reference range : <=0.5. The reference r arelis was not used to int erpret this result as normal/abnormal . [facility] CentralUmnoejoJMKOZVUYJV2490-89-92 18:05:00 Test Item Value Reference Range Interpretation Comments Basophils # (test code 0.1 See_Comment [Aut omated message] The = Basophils #) system which generated this result tra nsmitted reference range : <=0.2. The reference r arelis was not used to int erpret this result as normal/abnormal . [facility] CentralBspwrojDMLHTDSPGM3248-86-83 18:05:00 Test Item Value Reference Range Interpretation Comments WBC (test code = WBC) 8.2 3.7-10.4 [facility] CentralUpbnfyyLSJDYIZFIW4477-10-24 18:05:00 Test Item Value Reference Range Interpretation Comments RBC (test code = RBC) 2.71 4.20-5.40 [facility] CentralMkwmficBIVZLJUIPY9508-87-89 18:05:00 Test Item Value Reference Range Interpretation Comments MCV (test code = MCV) 88.3 80.0-98.0 [facility] CentralGuhuneyRHWUKOJHEW1027-22-95 18:05:00 Test Item Value Reference Range Interpretation Comments MCH (test code = MCH) 28.5 pg 27.0-31.0 [facility] CentralXdpytnfJDWQJHTHAM8734-13-77 18:05:00 Test Item Value Reference Range Interpretation Comments MCHC (test code = MCHC) 32.3 32.0-36.0 [facility] CentralUvvnfnrDJHAVQDJHW6754-69-77 18:05:00 Test Item Value Reference Range Interpretation Comments RDW (test code = RDW) 14.9 11.5-14.5 [facility] CentralYbgekzhQJFHUWUFNX7818-23-65 18:05:00 Test Item Value Reference Range Interpretation Comments Platelet (test code = Platelet) 408 133-450 [facility] CentralUulhuofUNZTNLTSLI1919-51-62 18:05:00 Test Item Value Reference Range Interpretation Comments MPV (test code = MPV) 8.8 7.4-10.4 [facility] CentralEgkyoerEDTAHPSMHL3896-40-21 18:05:00 Test Item Value Reference Range Interpretation Comments Segs (test code = Segs) 63.7 45.0-75.0 [facility] CentralKvvdkxrOBIAWTABHH3480-96-79 18:05:00 Test Item Value Reference Range Interpretation Comments Lymphocytes (test code = Lymphocytes) 26.6 20.0-40.0 [facility] CentralVazfsbpFXSVKZTKWL7375-17-53 18:05:00 Test Item Value Reference Range Interpretation Comments Monocytes (test code = Monocytes) 6.2 2.0-12.0 [facility] CentralBbrxnrbLCCHQMPJTI0973-37-22 18:05:00 Test Item Value Reference Range Interpretation Comments Eosinophils (test code = 2.6 See_Comment [A utomated message] The Eosinophils) system which ge nerated this result tra nsmitted reference range : <=4.0. The reference r arelis was not used to int erpret this result as normal/abnormal . [facility] CentralHnnreebXGRDXTIFQF6461-67-46 18:05:00 Test Item Value Reference Range Interpretation Comments Basophils (test code = 0.9 See_Comment [Aut omated message] The Basophils) system which ge nerated this result tra nsmitted reference range : <=1.0. The reference r arelis was not used to int erpret this result as normal/abnormal . [facility] CentralTzonmdqEYLBBZCUDK4201-40-00 18:05:00 Test Item Value Reference Range Interpretation Comments Neutrophils # (test code = Neutrophils 5.2 1.5-8.1 #) [facility] CentralZdqbxemNBIKTSIEDZ2735-69-41 18:05:00 Test Item Value Reference Range Interpretation Comments Lymphocytes # (test code = Lymphocytes 2.2 1.0-5.5 #) [facility] CentralWkptizcJAICKDSNBR0665-03-85 18:05:00 Test Item Value Reference Range Interpretation Comments Monocytes # (test code 0.5 See_Comment [Aut omated message] The = Monocytes #) system which generated this result tra nsmitted reference range : <=0.8. The reference r arelis was not used to int erpret this result as normal/abnormal . [facility] CentralQfbqfmySMJUEQEEPY7274-41-01 18:05:00 Test Item Value Reference Range Interpretation Comments Eosinophils # (test code 0.2 See_Comment [A utomated message] The = Eosinophils #) system whic h generated this result tra nsmitted reference range : <=0.5. The reference r arelis was not used to int erpret this result as normal/abnormal . [facility] CentralMcrsbjxASAPRIEUYU1743-94-56 18:05:00 Test Item Value Reference Range Interpretation Comments Basophils # (test code 0.1 See_Comment [Aut omated message] The = Basophils #) system which generated this result tra nsmitted reference range : <=0.2. The reference r arelis was not used to int erpret this result as normal/abnormal . [facility] CentralKjllemrTSAFVCRUKA0657-75-97 18:05:00 Test Item Value Reference Range Interpretation Comments WBC (test code = WBC) 8.2 3.7-10.4 [facility] CentralJrfzbacQREFGKQUWO2326-04-80 18:05:00 Test Item Value Reference Range Interpretation Comments RBC (test code = RBC) 2.71 4.20-5.40 [place] 139731-08-20 18:05:00 Test Item Value Reference Range Interpretation Comments MCV (test code = MCV) 88.3 80.0-98.0 [place] 139731-08-20 18:05:00 Test Item Value Reference Range Interpretation Comments MCH (test code = MCH) 28.5 pg 27.0-31.0 [facility] CentralZlantllNGCRIAOGOV5778-55-90 18:05:00 Test Item Value Reference Range Interpretation Comments MCHC (test code = MCHC) 32.3 32.0-36.0 [facility] CentralGvkaeoaNHKLDUBDMC8695-02-71 18:05:00 Test Item Value Reference Range Interpretation Comments RDW (test code = RDW) 14.9 11.5-14.5 [facility] CentralYyhbvxmQPFBHKIUPI5351-31-10 18:05:00 Test Item Value Reference Range Interpretation Comments Platelet (test code = Platelet) 408 133-450 [facility] CentralNydldwrVDIXEJFFLF4605-71-02 18:05:00 Test Item Value Reference Range Interpretation Comments MPV (test code = MPV) 8.8 7.4-10.4 [facility] CentralKxszbefISAGCZXQJA9517-61-95 18:05:00 Test Item Value Reference Range Interpretation Comments Segs (test code = Segs) 63.7 45.0-75.0 [facility] CentralPhfhxigXZWBWQUZKM2274-54-76 18:05:00 Test Item Value Reference Range Interpretation Comments Lymphocytes (test code = Lymphocytes) 26.6 20.0-40.0 [place] 139731-08-20 18:05:00 Test Item Value Reference Range Interpretation Comments Monocytes (test code = Monocytes) 6.2 2.0-12.0 [place] 139731-08-20 18:05:00 Test Item Value Reference Range Interpretation Comments Eosinophils (test code = 2.6 See_Comment [A utomated message] The Eosinophils) system which ge nerated this result tra nsmitted reference range : <=4.0. The reference r arelis was not used to int erpret this result as normal/abnormal . [facility] CentralAdcecsjRSDIWAQIQR9231-52-51 18:05:00 Test Item Value Reference Range Interpretation Comments Basophils (test code = 0.9 See_Comment [Aut omated message] The Basophils) system which ge nerated this result tra nsmitted reference range : <=1.0. The reference r arelis was not used to int erpret this result as normal/abnormal . [facility] CentralMpjtgptEULEVLJGJY6340-91-99 18:05:00 Test Item Value Reference Range Interpretation Comments Neutrophils # (test code = Neutrophils 5.2 1.5-8.1 #) [facility] CentralIsbkbomVFZIBEIVHQ9268-47-79 18:05:00 Test Item Value Reference Range Interpretation Comments Lymphocytes # (test code = Lymphocytes 2.2 1.0-5.5 #) [facility] CentralXkptgkdTECUGKAFSC8408-91-49 18:05:00 Test Item Value Reference Range Interpretation Comments Monocytes # (test code 0.5 See_Comment [Aut omated message] The = Monocytes #) system which generated this result tra nsmitted reference range : <=0.8. The reference r arelis was not used to int erpret this result as normal/abnormal . [facility] CentralFvikyrgFRVWYWLMDN3421-26-69 18:05:00 Test Item Value Reference Range Interpretation Comments Eosinophils # (test code 0.2 See_Comment [A utomated message] The = Eosinophils #) system whic h generated this result tra nsmitted reference range : <=0.5. The reference r arelis was not used to int erpret this result as normal/abnormal . [facility] CentralWruyslcYOIEGNVLCQ4928-70-49 18:05:00 Test Item Value Reference Range Interpretation Comments Basophils # (test code 0.1 See_Comment [Aut omated message] The = Basophils #) system which generated this result tra nsmitted reference range : <=0.2. The reference r arelis was not used to int erpret this result as normal/abnormal . [facility] CentralJjfqtqbQWIZYSOLGW2152-78-73 18:05:00 Test Item Value Reference Range Interpretation Comments WBC (test code = WBC) 8.2 3.7-10.4 [facility] CentralWjceakfFZLEAEHIJN0641-16-63 18:05:00 Test Item Value Reference Range Interpretation Comments RBC (test code = RBC) 2.71 4.20-5.40 [place] 139731-08-20 18:05:00 Test Item Value Reference Range Interpretation Comments MCV (test code = MCV) 88.3 80.0-98.0 [place] 139731-08-20 18:05:00 Test Item Value Reference Range Interpretation Comments MCH (test code = MCH) 28.5 pg 27.0-31.0 [place] 139731-08-20 18:05:00 Test Item Value Reference Range Interpretation Comments MCHC (test code = MCHC) 32.3 32.0-36.0 [facility] CentralIjbpibjMAGAPRYTMS2826-86-45 18:05:00 Test Item Value Reference Range Interpretation Comments RDW (test code = RDW) 14.9 11.5-14.5 [facility] CentralQfgqwprLJIXROQVQG2920-83-00 18:05:00 Test Item Value Reference Range Interpretation Comments Platelet (test code = Platelet) 408 133-450 [facility] CentralQihukkuITNFUJLWXY4662-26-18 18:05:00 Test Item Value Reference Range Interpretation Comments MPV (test code = MPV) 8.8 7.4-10.4 [facility] CentralNlesvwwXVUJPCNRAT4896-69-63 18:05:00 Test Item Value Reference Range Interpretation Comments Segs (test code = Segs) 63.7 45.0-75.0 [facility] CentralIvdnexlNLEKSLMDFH5872-05-31 18:05:00 Test Item Value Reference Range Interpretation Comments Lymphocytes (test code = Lymphocytes) 26.6 20.0-40.0 [facility] CentralIrfpfpuCQEYVIJWFS2917-79-07 18:05:00 Test Item Value Reference Range Interpretation Comments Monocytes (test code = Monocytes) 6.2 2.0-12.0 [facility] CentralWbslzjmSVEYSAWOPW3065-22-60 18:05:00 Test Item Value Reference Range Interpretation Comments Eosinophils (test code = 2.6 See_Comment [A utomated message] The Eosinophils) system which ge nerated this result tra nsmitted reference range : <=4.0. The reference r arelis was not used to int erpret this result as normal/abnormal . [place] 139731-08-20 18:05:00 Test Item Value Reference Range Interpretation Comments Basophils (test code = 0.9 See_Comment [Aut omated message] The Basophils) system which ge nerated this result tra nsmitted reference range : <=1.0. The reference r arelis was not used to int erpret this result as normal/abnormal . [facility] CentralZzrexuaDWUKGCRSTQ8489-09-08 18:05:00 Test Item Value Reference Range Interpretation Comments Neutrophils # (test code = Neutrophils 5.2 1.5-8.1 #) [facility] CentralJjqqteyBBZBEOYAUD8893-77-47 18:05:00 Test Item Value Reference Range Interpretation Comments Lymphocytes # (test code = Lymphocytes 2.2 1.0-5.5 #) [facility] CentralMwwourhTKHKWSJKTB9992-26-26 18:05:00 Test Item Value Reference Range Interpretation Comments Monocytes # (test code 0.5 See_Comment [Aut omated message] The = Monocytes #) system which generated this result tra nsmitted reference range : <=0.8. The reference r arelis was not used to int erpret this result as normal/abnormal . [facility] CentralEltkgksULEKUCDSVZ7642-88-50 18:05:00 Test Item Value Reference Range Interpretation Comments Eosinophils # (test code 0.2 See_Comment [A utomated message] The = Eosinophils #) system whic h generated this result tra nsmitted reference range : <=0.5. The reference r arelis was not used to int erpret this result as normal/abnormal . [facility] CentralOrsqtksPSVRPPVAHJ5560-10-60 18:05:00 Test Item Value Reference Range Interpretation Comments Basophils # (test code 0.1 See_Comment [Aut omated message] The = Basophils #) system which generated this result tra nsmitted reference range : <=0.2. The reference r arelis was not used to int erpret this result as normal/abnormal . [facility] CentralFoalapkKRUXKROULO3887-90-31 18:05:00 Test Item Value Reference Range Interpretation Comments WBC (test code = WBC) 8.2 3.7-10.4 [place] 139731-08-20 18:05:00 Test Item Value Reference Range Interpretation Comments RBC (test code = RBC) 2.71 4.20-5.40 [facility] CentralTgktgwdXHQMRSGDDX8853-10-84 18:05:00 Test Item Value Reference Range Interpretation Comments MCV (test code = MCV) 88.3 80.0-98.0 [facility] CentralOmugkjlJUPVOOMMKZ6944-94-74 18:05:00 Test Item Value Reference Range Interpretation Comments MCH (test code = MCH) 28.5 pg 27.0-31.0 [facility] CentralBzgpoifWAZVNLPWRP8815-23-22 18:05:00 Test Item Value Reference Range Interpretation Comments MCHC (test code = MCHC) 32.3 32.0-36.0 [facility] CentralUmrznuqAADIGZNOGW6059-68-42 18:05:00 Test Item Value Reference Range Interpretation Comments RDW (test code = RDW) 14.9 11.5-14.5 [facility] CentralJzulljzPVAJTMNDMG6359-97-53 18:05:00 Test Item Value Reference Range Interpretation Comments Platelet (test code = Platelet) 408 133-450 [facility] CentralVcxmdoqRZQHOISNUD9349-95-25 18:05:00 Test Item Value Reference Range Interpretation Comments MPV (test code = MPV) 8.8 7.4-10.4 [facility] CentralVlycnerKQBEQXRDGE7137-40-76 18:05:00 Test Item Value Reference Range Interpretation Comments Segs (test code = Segs) 63.7 45.0-75.0 [facility] CentralLzqjzzsMNLNVLFBCE3510-78-39 18:05:00 Test Item Value Reference Range Interpretation Comments Lymphocytes (test code = Lymphocytes) 26.6 20.0-40.0 [facility] CentralObiqrtbMHFPIDUCHA5261-62-08 18:05:00 Test Item Value Reference Range Interpretation Comments Monocytes (test code = Monocytes) 6.2 2.0-12.0 [facility] CentralTzqxgntDJMNPQFEOF8325-72-37 18:05:00 Test Item Value Reference Range Interpretation Comments Eosinophils (test code = 2.6 See_Comment [A utomated message] The Eosinophils) system which ge nerated this result tra nsmitted reference range : <=4.0. The reference r arelis was not used to int erpret this result as normal/abnormal . [facility] CentralSmmtfldJCCBSDQDGK6174-37-49 18:05:00 Test Item Value Reference Range Interpretation Comments Basophils (test code = 0.9 See_Comment [Aut omated message] The Basophils) system which ge nerated this result tra nsmitted reference range : <=1.0. The reference r arelis was not used to int erpret this result as normal/abnormal . [facility] CentralXhcbypePRVMVMAZFN6755-15-51 18:05:00 Test Item Value Reference Range Interpretation Comments Neutrophils # (test code = Neutrophils 5.2 1.5-8.1 #) [facility] CentralGvmvfedASIZBFGKEN8535-25-31 18:05:00 Test Item Value Reference Range Interpretation Comments Lymphocytes # (test code = Lymphocytes 2.2 1.0-5.5 #) [facility] CentralEgolwguBGOMKVLQKP8853-18-31 18:05:00 Test Item Value Reference Range Interpretation Comments Monocytes # (test code 0.5 See_Comment [Aut omated message] The = Monocytes #) system which generated this result tra nsmitted reference range : <=0.8. The reference r arelis was not used to int erpret this result as normal/abnormal . [facility] CentralEenfrhiENBDWMPAAF1853-29-65 18:05:00 Test Item Value Reference Range Interpretation Comments Eosinophils # (test code 0.2 See_Comment [A utomated message] The = Eosinophils #) system whic h generated this result tra nsmitted reference range : <=0.5. The reference r arelis was not used to int erpret this result as normal/abnormal . [facility] CentralGcpvrohKMLYDTNGOY0186-80-34 18:05:00 Test Item Value Reference Range Interpretation Comments Basophils # (test code 0.1 See_Comment [Aut omated message] The = Basophils #) system which generated this result tra nsmitted reference range : <=0.2. The reference r arelis was not used to int erpret this result as normal/abnormal . [facility] CentralHqwdzlwQTKKEZYNBH6047-95-45 18:05:00 Test Item Value Reference Range Interpretation Comments WBC (test code = WBC) 8.2 3.7-10.4 [facility] CentralMjcnrfsFBJUYPXURN2368-21-10 18:05:00 Test Item Value Reference Range Interpretation Comments RBC (test code = RBC) 2.71 4.20-5.40 [place] 139731-08-20 18:05:00 Test Item Value Reference Range Interpretation Comments MCV (test code = MCV) 88.3 80.0-98.0 [place] 139731-08-20 18:05:00 Test Item Value Reference Range Interpretation Comments MCH (test code = MCH) 28.5 pg 27.0-31.0 [facility] CentralBflbkolIRDWUFXRVX2723-93-25 18:05:00 Test Item Value Reference Range Interpretation Comments MCHC (test code = MCHC) 32.3 32.0-36.0 [facility] CentralMwpgxlgABNJPHZUVB5592-65-28 18:05:00 Test Item Value Reference Range Interpretation Comments RDW (test code = RDW) 14.9 11.5-14.5 [facility] CentralJxmhtvlHTLAFYDTCT8437-35-10 18:05:00 Test Item Value Reference Range Interpretation Comments Platelet (test code = Platelet) 408 133-450 [place] 139731-08-20 18:05:00 Test Item Value Reference Range Interpretation Comments MPV (test code = MPV) 8.8 7.4-10.4 [facility] CentralTkxkbrmEWYIWABVGC7360-10-61 18:05:00 Test Item Value Reference Range Interpretation Comments Segs (test code = Segs) 63.7 45.0-75.0 [place] 139731-08-20 18:05:00 Test Item Value Reference Range Interpretation Comments Lymphocytes (test code = Lymphocytes) 26.6 20.0-40.0 [facility] CentralTfetjxzXVCIDYPGNP7555-51-42 18:05:00 Test Item Value Reference Range Interpretation Comments Monocytes (test code = Monocytes) 6.2 2.0-12.0 [facility] CentralPshzueeNLBCBBQTKL9063-56-18 18:05:00 Test Item Value Reference Range Interpretation Comments Eosinophils (test code = 2.6 See_Comment [A utomated message] The Eosinophils) system which ge nerated this result tra nsmitted reference range : <=4.0. The reference r arelis was not used to int erpret this result as normal/abnormal . [facility] CentralCtmvrttNPKPOFEKIN7740-30-40 18:05:00 Test Item Value Reference Range Interpretation Comments Basophils (test code = 0.9 See_Comment [Aut omated message] The Basophils) system which ge nerated this result tra nsmitted reference range : <=1.0. The reference r arelsi was not used to int erpret this result as normal/abnormal . [facility] CentralOqmkajiFHDSZEIKKX5519-23-45 18:05:00 Test Item Value Reference Range Interpretation Comments Neutrophils # (test code = Neutrophils 5.2 1.5-8.1 #) [facility] CentralZhdfzkwYTMTRLWQLS5289-78-31 18:05:00 Test Item Value Reference Range Interpretation Comments Lymphocytes # (test code = Lymphocytes 2.2 1.0-5.5 #) [facility] CentralVptkgllNFLMBIESQE6449-61-47 18:05:00 Test Item Value Reference Range Interpretation Comments Monocytes # (test code 0.5 See_Comment [Aut omated message] The = Monocytes #) system which generated this result tra nsmitted reference range : <=0.8. The reference r arelis was not used to int erpret this result as normal/abnormal . [facility] CentralArmufhiHBKGELYKZB6698-11-45 18:05:00 Test Item Value Reference Range Interpretation Comments Eosinophils # (test code 0.2 See_Comment [A utomated message] The = Eosinophils #) system whic h generated this result tra nsmitted reference range : <=0.5. The reference r arelis was not used to int erpret this result as normal/abnormal . [facility] CentralNrqfjwoLONIIDYRYZ8389-85-25 18:05:00 Test Item Value Reference Range Interpretation Comments Basophils # (test code 0.1 See_Comment [Aut omated message] The = Basophils #) system which generated this result tra nsmitted reference range : <=0.2. The reference r arelis was not used to int erpret this result as normal/abnormal . [facility] CentralXdnodxkIAZSLQHDTE7064-73-43 18:05:00 Test Item Value Reference Range Interpretation Comments WBC (test code = WBC) 8.2 3.7-10.4 [facility] CentralJfbizhvMMDPZFCXZP2015-21-10 18:05:00 Test Item Value Reference Range Interpretation Comments RBC (test code = RBC) 2.71 4.20-5.40 [facility] CentralHlfcciiGGJFBWVBGF8218-88-15 18:05:00 Test Item Value Reference Range Interpretation Comments MCV (test code = MCV) 88.3 80.0-98.0 [facility] CentralGovopvgRYEQBUIQSF2111-04-12 18:05:00 Test Item Value Reference Range Interpretation Comments MCH (test code = MCH) 28.5 pg 27.0-31.0 [facility] CentralKpbyvzsQZTFJVRWFY6045-23-46 18:05:00 Test Item Value Reference Range Interpretation Comments MCHC (test code = MCHC) 32.3 32.0-36.0 [facility] CentralPnjlynuDFOEJZWWOI3894-05-56 18:05:00 Test Item Value Reference Range Interpretation Comments RDW (test code = RDW) 14.9 11.5-14.5 [facility] CentralEozxihoRLCVUTITYR9721-04-52 18:05:00 Test Item Value Reference Range Interpretation Comments Platelet (test code = Platelet) 408 133-450 [facility] CentralWyjmtfbSJDBVMYWCY0293-45-44 18:05:00 Test Item Value Reference Range Interpretation Comments MPV (test code = MPV) 8.8 7.4-10.4 [facility] CentralTvlralkFHGVXLDYKF1119-71-57 18:05:00 Test Item Value Reference Range Interpretation Comments Segs (test code = Segs) 63.7 45.0-75.0 [facility] CentralIetmveyETYXAKMZCH3635-53-55 18:05:00 Test Item Value Reference Range Interpretation Comments Lymphocytes (test code = Lymphocytes) 26.6 20.0-40.0 [facility] CentralZueyjrcIZCTJWHXLR7604-09-52 18:05:00 Test Item Value Reference Range Interpretation Comments Monocytes (test code = Monocytes) 6.2 2.0-12.0 [facility] CentralDoudmlnSMNLCQKRZA7820-40-80 18:05:00 Test Item Value Reference Range Interpretation Comments Eosinophils (test code = 2.6 See_Comment [A utomated message] The Eosinophils) system which ge nerated this result tra nsmitted reference range : <=4.0. The reference r arelis was not used to int erpret this result as normal/abnormal . [facility] CentralXtoltcmHONPQRXTAM9662-63-80 18:05:00 Test Item Value Reference Range Interpretation Comments Basophils (test code = 0.9 See_Comment [Aut omated message] The Basophils) system which ge nerated this result tra nsmitted reference range : <=1.0. The reference r arelis was not used to int erpret this result as normal/abnormal . [facility] CentralFfdhftgUDMNCUPQAE2129-62-02 18:05:00 Test Item Value Reference Range Interpretation Comments Neutrophils # (test code = Neutrophils 5.2 1.5-8.1 #) [facility] CentralIrlpwlsKFETHZBOQM8524-35-34 18:05:00 Test Item Value Reference Range Interpretation Comments Lymphocytes # (test code = Lymphocytes 2.2 1.0-5.5 #) [facility] CentralQqsgeqhOLDSBCGIZS1998-65-44 18:05:00 Test Item Value Reference Range Interpretation Comments Monocytes # (test code 0.5 See_Comment [Aut omated message] The = Monocytes #) system which generated this result tra nsmitted reference range : <=0.8. The reference r arelis was not used to int erpret this result as normal/abnormal . [facility] CentralTdqjoyvAKORGTWBLM0466-99-62 18:05:00 Test Item Value Reference Range Interpretation Comments Eosinophils # (test code 0.2 See_Comment [A utomated message] The = Eosinophils #) system whic h generated this result tra nsmitted reference range : <=0.5. The reference r arelis was not used to int erpret this result as normal/abnormal . [facility] CentralEojtbwvZHFQEMQGQE6275-32-47 18:05:00 Test Item Value Reference Range Interpretation Comments Basophils # (test code 0.1 See_Comment [Aut omated message] The = Basophils #) system which generated this result tra nsmitted reference range : <=0.2. The reference r arelis was not used to int erpret this result as normal/abnormal . [facility] CentralPvmjxngMXXZCZRYLN8826-02-46 18:05:00 Test Item Value Reference Range Interpretation Comments WBC (test code = WBC) 8.2 3.7-10.4 [facility] CentralOtemiifKAQSSDXJDM0725-69-76 18:05:00 Test Item Value Reference Range Interpretation Comments RBC (test code = RBC) 2.71 4.20-5.40 [facility] CentralUzqatkiNMMGCDTWZI2740-74-03 18:05:00 Test Item Value Reference Range Interpretation Comments MCV (test code = MCV) 88.3 80.0-98.0 [facility] CentralTpopiqjNOXKKUBWRU6328-93-14 18:05:00 Test Item Value Reference Range Interpretation Comments MCH (test code = MCH) 28.5 pg 27.0-31.0 [facility] CentralHklxsayYXOIZKNMYZ1202-96-27 18:05:00 Test Item Value Reference Range Interpretation Comments MCHC (test code = MCHC) 32.3 32.0-36.0 [facility] CentralPuznamsEQQBDPVXMZ9478-67-02 18:05:00 Test Item Value Reference Range Interpretation Comments RDW (test code = RDW) 14.9 11.5-14.5 [facility] CentralMtujfmuQVBSFUMHCK5056-87-12 18:05:00 Test Item Value Reference Range Interpretation Comments Platelet (test code = Platelet) 408 133-450 [facility] CentralUcbohuyCZBDRYRYLT1533-17-41 18:05:00 Test Item Value Reference Range Interpretation Comments MPV (test code = MPV) 8.8 7.4-10.4 [facility] CentralYlorjkmCHDAXYHGRP1505-84-99 18:05:00 Test Item Value Reference Range Interpretation Comments Segs (test code = Segs) 63.7 45.0-75.0 [facility] CentralEcvbiapMFIDZISJGY3641-00-45 18:05:00 Test Item Value Reference Range Interpretation Comments Lymphocytes (test code = Lymphocytes) 26.6 20.0-40.0 [place] 139731-08-20 18:05:00 Test Item Value Reference Range Interpretation Comments Monocytes (test code = Monocytes) 6.2 2.0-12.0 [facility] CentralDwodnceKVWMCUEBON2369-14-54 18:05:00 Test Item Value Reference Range Interpretation Comments Eosinophils (test code = 2.6 See_Comment [A utomated message] The Eosinophils) system which ge nerated this result tra nsmitted reference range : <=4.0. The reference r arelis was not used to int erpret this result as normal/abnormal . [place] 139731-08-20 18:05:00 Test Item Value Reference Range Interpretation Comments Basophils (test code = 0.9 See_Comment [Aut omated message] The Basophils) system which ge nerated this result tra nsmitted reference range : <=1.0. The reference r arelis was not used to int erpret this result as normal/abnormal . [facility] CentralQbcstoeRVLBXDRPYZ4804-65-15 18:05:00 Test Item Value Reference Range Interpretation Comments Neutrophils # (test code = Neutrophils 5.2 1.5-8.1 #) [facility] CentralHelexmeKZTDDAWFLT5138-00-09 18:05:00 Test Item Value Reference Range Interpretation Comments Lymphocytes # (test code = Lymphocytes 2.2 1.0-5.5 #) [facility] CentralWchunhvTMXBBRVUHL2982-47-74 18:05:00 Test Item Value Reference Range Interpretation Comments Monocytes # (test code 0.5 See_Comment [Aut omated message] The = Monocytes #) system which generated this result tra nsmitted reference range : <=0.8. The reference r arelis was not used to int erpret this result as normal/abnormal . [facility] CentralNtcnmcoGXYEJJRVGF5244-12-46 18:05:00 Test Item Value Reference Range Interpretation Comments Eosinophils # (test code 0.2 See_Comment [A utomated message] The = Eosinophils #) system whic h generated this result tra nsmitted reference range : <=0.5. The reference r arelis was not used to int erpret this result as normal/abnormal . [facility] CentralArbkmggLPQSFJVYAK8056-01-29 18:05:00 Test Item Value Reference Range Interpretation Comments Basophils # (test code 0.1 See_Comment [Aut omated message] The = Basophils #) system which generated this result tra nsmitted reference range : <=0.2. The reference r arelis was not used to int erpret this result as normal/abnormal . [facility] CentralDwaxjhsXKJCCXOXBU7753-46-15 18:05:00 Test Item Value Reference Range Interpretation Comments WBC (test code = WBC) 8.2 3.7-10.4 [facility] CentralUbtvxvmXEBTMYKTTU0109-79-00 18:05:00 Test Item Value Reference Range Interpretation Comments RBC (test code = RBC) 2.71 4.20-5.40 [facility] CentralFpmdukkHSIFHLEOAE0107-34-06 18:05:00 Test Item Value Reference Range Interpretation Comments MCV (test code = MCV) 88.3 80.0-98.0 [facility] CentralPbdzwhzAAAXTLWKWC5020-21-38 18:05:00 Test Item Value Reference Range Interpretation Comments MCH (test code = MCH) 28.5 pg 27.0-31.0 [facility] CentralZphqonaHSWEBGPXQE6631-85-91 18:05:00 Test Item Value Reference Range Interpretation Comments MCHC (test code = MCHC) 32.3 32.0-36.0 [facility] CentralZldwtncEOFNWOTBFK8405-04-31 18:05:00 Test Item Value Reference Range Interpretation Comments RDW (test code = RDW) 14.9 11.5-14.5 [facility] CentralExxmfcjAQYYSFUXLG5352-26-39 18:05:00 Test Item Value Reference Range Interpretation Comments Platelet (test code = Platelet) 408 133-450 [facility] CentralFbfkdweTJILTPVRPX3751-10-20 18:05:00 Test Item Value Reference Range Interpretation Comments MPV (test code = MPV) 8.8 7.4-10.4 [facility] CentralHibyyizFBRCDBYBYW1637-68-86 18:05:00 Test Item Value Reference Range Interpretation Comments Segs (test code = Segs) 63.7 45.0-75.0 [facility] CentralBxtjpumKLTLDXDNIO5549-32-58 18:05:00 Test Item Value Reference Range Interpretation Comments Lymphocytes (test code = Lymphocytes) 26.6 20.0-40.0 [place] 139731-08-20 18:05:00 Test Item Value Reference Range Interpretation Comments Monocytes (test code = Monocytes) 6.2 2.0-12.0 [place] 139731-08-20 18:05:00 Test Item Value Reference Range Interpretation Comments Eosinophils (test code = 2.6 See_Comment [A utomated message] The Eosinophils) system which ge nerated this result tra nsmitted reference range : <=4.0. The reference r arelis was not used to int erpret this result as normal/abnormal . [place] 139731-08-20 18:05:00 Test Item Value Reference Range Interpretation Comments Basophils (test code = 0.9 See_Comment [Aut omated message] The Basophils) system which ge nerated this result tra nsmitted reference range : <=1.0. The reference r arelis was not used to int erpret this result as normal/abnormal . [facility] CentralUdgabykBDOMUVMZZF0441-95-48 18:05:00 Test Item Value Reference Range Interpretation Comments Neutrophils # (test code = Neutrophils 5.2 1.5-8.1 #) [facility] CentralUnrjevvFUSYRLTPLY8900-97-15 18:05:00 Test Item Value Reference Range Interpretation Comments Lymphocytes # (test code = Lymphocytes 2.2 1.0-5.5 #) [facility] CentralAfumxpbATTRFHAGCX9211-85-20 18:05:00 Test Item Value Reference Range Interpretation Comments Monocytes # (test code 0.5 See_Comment [Aut omated message] The = Monocytes #) system which generated this result tra nsmitted reference range : <=0.8. The reference r arelis was not used to int erpret this result as normal/abnormal . [facility] CentralJwplxknFBIFAOMNZX4113-66-71 18:05:00 Test Item Value Reference Range Interpretation Comments Eosinophils # (test code 0.2 See_Comment [A utomated message] The = Eosinophils #) system whic h generated this result tra nsmitted reference range : <=0.5. The reference r arelis was not used to int erpret this result as normal/abnormal . [facility] CentralYpyaovsSMUANEBGGD1538-43-98 18:05:00 Test Item Value Reference Range Interpretation Comments Basophils # (test code 0.1 See_Comment [Aut omated message] The = Basophils #) system which generated this result tra nsmitted reference range : <=0.2. The reference r arelis was not used to int erpret this result as normal/abnormal . [facility] CentralPsptythIZZTMKFONP5776-97-05 18:05:00 Test Item Value Reference Range Interpretation Comments WBC (test code = WBC) 8.2 3.7-10.4 [facility] CentralUchjssyIBLAZZDSRT9355-30-12 18:05:00 Test Item Value Reference Range Interpretation Comments RBC (test code = RBC) 2.71 4.20-5.40 [facility] CentralPdabajjNNJMEARDTA2390-84-54 18:05:00 Test Item Value Reference Range Interpretation Comments MCV (test code = MCV) 88.3 80.0-98.0 [facility] CentralXrphpipBLZIECVCZM2488-67-83 18:05:00 Test Item Value Reference Range Interpretation Comments MCH (test code = MCH) 28.5 pg 27.0-31.0 [facility] CentralJooqjipSKHPSUJEJB1536-74-23 18:05:00 Test Item Value Reference Range Interpretation Comments MCHC (test code = MCHC) 32.3 32.0-36.0 [facility] CentralCghjretCGACUFPPDH4605-69-29 18:05:00 Test Item Value Reference Range Interpretation Comments RDW (test code = RDW) 14.9 11.5-14.5 [facility] CentralCdtgiitPRFZLKVHGJ1829-00-36 18:05:00 Test Item Value Reference Range Interpretation Comments Platelet (test code = Platelet) 408 133-450 [facility] CentralWpjkajtMCIHSDYGBM2731-23-39 18:05:00 Test Item Value Reference Range Interpretation Comments MPV (test code = MPV) 8.8 7.4-10.4 [facility] CentralChshprzPWAADFEFRI0059-32-32 18:05:00 Test Item Value Reference Range Interpretation Comments Segs (test code = Segs) 63.7 45.0-75.0 [facility] CentralIkxhkmvQHNXYPTULX5726-02-27 18:05:00 Test Item Value Reference Range Interpretation Comments Lymphocytes (test code = Lymphocytes) 26.6 20.0-40.0 [facility] CentralUvtebwzIRLTWRMVTX9069-55-34 18:05:00 Test Item Value Reference Range Interpretation Comments Monocytes (test code = Monocytes) 6.2 2.0-12.0 [facility] CentralExnseycRXJFTQSMRT1364-91-89 18:05:00 Test Item Value Reference Range Interpretation Comments Eosinophils (test code = 2.6 See_Comment [A utomated message] The Eosinophils) system which ge nerated this result tra nsmitted reference range : <=4.0. The reference r arelis was not used to int erpret this result as normal/abnormal . [facility] CentralNfiknnqAYUXFERPTJ7974-98-18 18:05:00 Test Item Value Reference Range Interpretation Comments Basophils (test code = 0.9 See_Comment [Aut omated message] The Basophils) system which ge nerated this result tra nsmitted reference range : <=1.0. The reference r arelis was not used to int erpret this result as normal/abnormal . [place] 139731-08-20 18:05:00 Test Item Value Reference Range Interpretation Comments Neutrophils # (test code = Neutrophils 5.2 1.5-8.1 #) [place] 139731-08-20 18:05:00 Test Item Value Reference Range Interpretation Comments Lymphocytes # (test code = Lymphocytes 2.2 1.0-5.5 #) [place] 139731-08-20 18:05:00 Test Item Value Reference Range Interpretation Comments Monocytes # (test code 0.5 See_Comment [Aut omated message] The = Monocytes #) system which generated this result tra nsmitted reference range : <=0.8. The reference r arelis was not used to int erpret this result as normal/abnormal . [facility] CentralEimxfciJRXAHNTQBS2122-82-98 18:05:00 Test Item Value Reference Range Interpretation Comments Eosinophils # (test code 0.2 See_Comment [A utomated message] The = Eosinophils #) system [facility] generated this result tra nsmitted reference range : <=0.5. The reference r arelis was not used to int erpret this result as normal/abnormal . [facility] CentralKsodllvWEZESCMINS9901-07-93 18:05:00 Test Item Value Reference Range Interpretation Comments Basophils # (test code 0.1 See_Comment [Aut omated message] The = Basophils #) system which generated this result tra nsmitted reference range : <=0.2. The reference r arelis was not used to int erpret this result as normal/abnormal . [place] 139731-08-20 18:05:00 Test Item Value Reference Range Interpretation Comments WBC (test code = WBC) 8.2 3.7-10.4 [facility] CentralHtdzdcgKEMEANQIYD5638-96-84 18:05:00 Test Item Value Reference Range Interpretation Comments RBC (test code = RBC) 2.71 4.20-5.40 [facility] CentralOnxtspeBXAGJJMWPH0792-06-04 18:05:00 Test Item Value Reference Range Interpretation Comments MCV (test code = MCV) 88.3 80.0-98.0 [facility] CentralWuadmviXVNPXYIIZJ2094-15-81 18:05:00 Test Item Value Reference Range Interpretation Comments MCH (test code = MCH) 28.5 pg 27.0-31.0 [facility] CentralCxgyjngVFYGFZZBLM7770-17-19 18:05:00 Test Item Value Reference Range Interpretation Comments MCHC (test code = MCHC) 32.3 32.0-36.0 [facility] CentralQqwjijmYQFUHGWDQT4045-21-87 18:05:00 Test Item Value Reference Range Interpretation Comments RDW (test code = RDW) 14.9 11.5-14.5 [facility] CentralLgpdqafGCNFVAMXHG7538-72-70 18:05:00 Test Item Value Reference Range Interpretation Comments Platelet (test code = Platelet) 408 133-450 [facility] CentralQojmauoRLIZOYMTVJ5661-54-56 18:05:00 Test Item Value Reference Range Interpretation Comments MPV (test code = MPV) 8.8 7.4-10.4 [facility] CentralYuenkjqMHVPILYUWY0979-72-95 18:05:00 Test Item Value Reference Range Interpretation Comments Segs (test code = Segs) 63.7 45.0-75.0 [facility] CentralHmfpbjdJDBEBFSBVS4808-67-77 18:05:00 Test Item Value Reference Range Interpretation Comments Lymphocytes (test code = Lymphocytes) 26.6 20.0-40.0 [place] 139731-08-20 18:05:00 Test Item Value Reference Range Interpretation Comments Monocytes (test code = Monocytes) 6.2 2.0-12.0 [place] 139731-08-20 18:05:00 Test Item Value Reference Range Interpretation Comments Eosinophils (test code = 2.6 See_Comment [A utomated message] The Eosinophils) system which ge nerated this result tra nsmitted reference range : <=4.0. The reference r arelis was not used to int erpret this result as normal/abnormal . [facility] CentralRjeubzzLDSVLSPWDK7692-43-56 18:05:00 Test Item Value Reference Range Interpretation Comments Basophils (test code = 0.9 See_Comment [Aut omated message] The Basophils) system which ge nerated this result tra nsmitted reference range : <=1.0. The reference r arelis was not used to int erpret this result as normal/abnormal . [facility] CentralNecklhqOFYBLGGLYZ6187-11-06 18:05:00 Test Item Value Reference Range Interpretation Comments Neutrophils # (test code = Neutrophils 5.2 1.5-8.1 #) [facility] CentralAowuokfAJMAEKFLST6483-07-43 18:05:00 Test Item Value Reference Range Interpretation Comments Lymphocytes # (test code = Lymphocytes 2.2 1.0-5.5 #) [facility] CentralNpbbsjhBYNDTRQMUG8481-36-09 18:05:00 Test Item Value Reference Range Interpretation Comments Monocytes # (test code 0.5 See_Comment [Aut omated message] The = Monocytes #) system which generated this result tra nsmitted reference range : <=0.8. The reference r arelis was not used to int erpret this result as normal/abnormal . [facility] CentralCyoddfhODZHUOSJUI0581-34-91 18:05:00 Test Item Value Reference Range Interpretation Comments Eosinophils # (test code 0.2 See_Comment [A utomated message] The = Eosinophils #) system whic h generated this result tra nsmitted reference range : <=0.5. The reference r arelis was not used to int erpret this result as normal/abnormal . [facility] CentralFdmsyppIDJVZZKUFH6470-96-10 18:05:00 Test Item Value Reference Range Interpretation Comments Basophils # (test code 0.1 See_Comment [Aut omated message] The = Basophils #) system which generated this result tra nsmitted reference range : <=0.2. The reference r arelis was not used to int erpret this result as normal/abnormal . [facility] CentralWgpxpqlMDRHEUZNXJ1462-81-25 18:05:00 Test Item Value Reference Range Interpretation Comments WBC (test code = WBC) 8.2 3.7-10.4 [facility] CentralKyelbqqKWVNVEZZPS2056-49-18 18:05:00 Test Item Value Reference Range Interpretation Comments RBC (test code = RBC) 2.71 4.20-5.40 [place] [address]731-08-20 18:05:00 Test Item Value Reference Range Interpretation Comments MCV (test code = MCV) 88.3 80.0-98.0 [facility] CentralBjnbfdfEPTTQICSBD5748-16-57 18:05:00 Test Item Value Reference Range Interpretation Comments MCH (test code = MCH) 28.5 pg 27.0-31.0 [facility] CentralXaduqmjWULRPEBRHT9799-25-85 18:05:00 Test Item Value Reference Range Interpretation Comments MCHC (test code = MCHC) 32.3 32.0-36.0 [facility] CentralRtgsdacOAKIYFJEKX9631-06-38 18:05:00 Test Item Value Reference Range Interpretation Comments RDW (test code = RDW) 14.9 11.5-14.5 [facility] CentralAleukvrPSVUIGWXVB6070-91-40 18:05:00 Test Item Value Reference Range Interpretation Comments Platelet (test code = Platelet) 408 133-450 [facility] CentralNuyvgzmOUBJAFGVFB8831-41-62 18:05:00 Test Item Value Reference Range Interpretation Comments MPV (test code = MPV) 8.8 7.4-10.4 [facility] CentralMdvgifaZZGDTTGOPX5086-55-74 18:05:00 Test Item Value Reference Range Interpretation Comments Segs (test code = Segs) 63.7 45.0-75.0 [facility] CentralZizdaaxFAPIPYMNEC3079-03-83 18:05:00 Test Item Value Reference Range Interpretation Comments Lymphocytes (test code = Lymphocytes) 26.6 20.0-40.0 [facility] CentralYovqinlNDAJIHKIQW8170-69-79 18:05:00 Test Item Value Reference Range Interpretation Comments Monocytes (test code = Monocytes) 6.2 2.0-12.0 [place] 139731-08-20 18:05:00 Test Item Value Reference Range Interpretation Comments Eosinophils (test code = 2.6 See_Comment [A utomated message] The Eosinophils) system which ge nerated this result tra nsmitted reference range : <=4.0. The reference r arelis was not used to int erpret this result as normal/abnormal . [facility] CentralHnvoupzDBHCTXMPDJ9773-43-68 18:05:00 Test Item Value Reference Range Interpretation Comments Basophils (test code = 0.9 See_Comment [Aut omated message] The Basophils) system which ge nerated this result tra nsmitted reference range : <=1.0. The reference r arelis was not used to int erpret this result as normal/abnormal . [facility] CentralBkovnyeNUCFPPDZQG8961-98-98 18:05:00 Test Item Value Reference Range Interpretation Comments Neutrophils # (test code = Neutrophils 5.2 1.5-8.1 #) [facility] CentralHvgvtfmJDEDDTSLME7676-53-78 18:05:00 Test Item Value Reference Range Interpretation Comments Lymphocytes # (test code = Lymphocytes 2.2 1.0-5.5 #) [facility] CentralEtrvmtvRNPLWDOZUZ8572-73-43 18:05:00 Test Item Value Reference Range Interpretation Comments Monocytes # (test code 0.5 See_Comment [Aut omated message] The = Monocytes #) system which generated this result tra nsmitted reference range : <=0.8. The reference r arelis was not used to int erpret this result as normal/abnormal . [facility] CentralYpqlnbyFSWAYTJNGP8285-26-96 18:05:00 Test Item Value Reference Range Interpretation Comments Eosinophils # (test code 0.2 See_Comment [A utomated message] The = Eosinophils #) system whic h generated this result tra nsmitted reference range : <=0.5. The reference r arelis was not used to int erpret this result as normal/abnormal . [facility] CentralYgvfkzuIYEWETGINM8650-07-62 18:05:00 Test Item Value Reference Range Interpretation Comments Basophils # (test code 0.1 See_Comment [Aut omated message] The = Basophils #) system which generated this result tra nsmitted reference range : <=0.2. The reference r arelis was not used to int erpret this result as normal/abnormal . [facility] CentralVsouuvcKJNDKKLDLQ3455-99-19 18:05:00 Test Item Value Reference Range Interpretation Comments WBC (test code = WBC) 8.2 3.7-10.4 [facility] CentralZmynpihGRMIURZMUL5199-89-32 18:05:00 Test Item Value Reference Range Interpretation Comments RBC (test code = RBC) 2.71 4.20-5.40 [place] 139731-08-20 18:05:00 Test Item Value Reference Range Interpretation Comments MCV (test code = MCV) 88.3 80.0-98.0 [place] 139731-08-20 18:05:00 Test Item Value Reference Range Interpretation Comments MCH (test code = MCH) 28.5 pg 27.0-31.0 [facility] CentralAqdefbrLRVWJTNECQ0593-27-77 18:05:00 Test Item Value Reference Range Interpretation Comments MCHC (test code = MCHC) 32.3 32.0-36.0 [facility] CentralIhotxrlQXEMAAGOGL4468-24-40 18:05:00 Test Item Value Reference Range Interpretation Comments RDW (test code = RDW) 14.9 11.5-14.5 [facility] CentralNgcmfehEKHUINNFCU4016-32-97 18:05:00 Test Item Value Reference Range Interpretation Comments Platelet (test code = Platelet) 408 133-450 [facility] CentralGyauwipTKAWHLOQZO4197-92-65 18:05:00 Test Item Value Reference Range Interpretation Comments MPV (test code = MPV) 8.8 7.4-10.4 [place] 139731-08-20 18:05:00 Test Item Value Reference Range Interpretation Comments Segs (test code = Segs) 63.7 45.0-75.0 [facility] CentralEkmufebUJCQNLGLBE8887-24-84 18:05:00 Test Item Value Reference Range Interpretation Comments Lymphocytes (test code = Lymphocytes) 26.6 20.0-40.0 [facility] CentralIpjneumRPZXYBMXOK3703-81-74 18:05:00 Test Item Value Reference Range Interpretation Comments Monocytes (test code = Monocytes) 6.2 2.0-12.0 [facility] CentralWymsdsyMKIBCHYVED4868-48-91 18:05:00 Test Item Value Reference Range Interpretation Comments Eosinophils (test code = 2.6 See_Comment [A utomated message] The Eosinophils) system which ge nerated this result tra nsmitted reference range : <=4.0. The reference r arelis was not used to int erpret this result as normal/abnormal . [facility] CentralRektnikZIKRGVWYKC6259-65-42 18:05:00 Test Item Value Reference Range Interpretation Comments Basophils (test code = 0.9 See_Comment [Aut omated message] The Basophils) system which ge nerated this result tra nsmitted reference range : <=1.0. The reference r arelis was not used to int erpret this result as normal/abnormal . [facility] CentralDrmfxcvFYEFEIUAAF8476-89-90 18:05:00 Test Item Value Reference Range Interpretation Comments Neutrophils # (test code = Neutrophils 5.2 1.5-8.1 #) [facility] CentralCzsesxeSEXJXVGJDN2685-87-39 18:05:00 Test Item Value Reference Range Interpretation Comments Lymphocytes # (test code = Lymphocytes 2.2 1.0-5.5 #) [facility] CentralQncrnzhKBPNWOZARA3938-70-53 18:05:00 Test Item Value Reference Range Interpretation Comments Monocytes # (test code 0.5 See_Comment [Aut omated message] The = Monocytes #) system which generated this result tra nsmitted reference range : <=0.8. The reference r arelis was not used to int erpret this result as normal/abnormal . [facility] CentralUkhxacjVLBZHOQKTI5632-29-11 18:05:00 Test Item Value Reference Range Interpretation Comments Eosinophils # (test code 0.2 See_Comment [A utomated message] The = Eosinophils #) system whic h generated this result tra nsmitted reference range : <=0.5. The reference r arelis was not used to int erpret this result as normal/abnormal . [facility] CentralVuyaymoJABXBJWWLO5955-52-80 18:05:00 Test Item Value Reference Range Interpretation Comments Basophils # (test code 0.1 See_Comment [Aut omated message] The = Basophils #) system which generated this result tra nsmitted reference range : <=0.2. The reference r arelis was not used to int erpret this result as normal/abnormal . [facility] CentralMdbugezQFWLVZAEEL0766-40-55 18:05:00 Test Item Value Reference Range Interpretation Comments WBC (test code = WBC) 8.2 3.7-10.4 [facility] CentralJmejczyRCWVBHRTLL2366-54-66 18:05:00 Test Item Value Reference Range Interpretation Comments RBC (test code = RBC) 2.71 4.20-5.40 [place] [address]731-08-20 18:05:00 Test Item Value Reference Range Interpretation Comments MCV (test code = MCV) 88.3 80.0-98.0 [place] 139731-08-20 18:05:00 Test Item Value Reference Range Interpretation Comments MCH (test code = MCH) 28.5 pg 27.0-31.0 [place] 139731-08-20 18:05:00 Test Item Value Reference Range Interpretation Comments MCHC (test code = MCHC) 32.3 32.0-36.0 [facility] CentralNcprdqdNTJDOIEQEP9181-60-53 18:05:00 Test Item Value Reference Range Interpretation Comments RDW (test code = RDW) 14.9 11.5-14.5 [facility] CentralOqgfhxiVOBYVOGVZE6281-32-97 18:05:00 Test Item Value Reference Range Interpretation Comments Platelet (test code = Platelet) 408 133-450 [facility] CentralRsrvjhzXLCJLQFPSN9868-49-58 18:05:00 Test Item Value Reference Range Interpretation Comments MPV (test code = MPV) 8.8 7.4-10.4 [facility] CentralSlfpbgrIYZWUFBKIK2101-25-01 18:05:00 Test Item Value Reference Range Interpretation Comments Segs (test code = Segs) 63.7 45.0-75.0 [facility] CentralYzlbmdbVOCWNKRWVS0109-67-10 18:05:00 Test Item Value Reference Range Interpretation Comments Lymphocytes (test code = Lymphocytes) 26.6 20.0-40.0 [facility] CentralBlfqbdeMTALYCZUMU7683-53-93 18:05:00 Test Item Value Reference Range Interpretation Comments Monocytes (test code = Monocytes) 6.2 2.0-12.0 [facility] CentralKfweuweHNOJSQNTNI2833-58-84 18:05:00 Test Item Value Reference Range Interpretation Comments Eosinophils (test code = 2.6 See_Comment [A utomated message] The Eosinophils) system which ge nerated this result tra nsmitted reference range : <=4.0. The reference r arelis was not used to int erpret this result as normal/abnormal . [facility] CentralZrcgjwkROFOLALCUB4983-85-97 18:05:00 Test Item Value Reference Range Interpretation Comments Basophils (test code = 0.9 See_Comment [Aut omated message] The Basophils) system which ge nerated this result tra nsmitted reference range : <=1.0. The reference r arelis was not used to int erpret this result as normal/abnormal . [facility] CentralHbozpxgEFGKPPWJND2266-91-01 18:05:00 Test Item Value Reference Range Interpretation Comments Neutrophils # (test code = Neutrophils 5.2 1.5-8.1 #) [facility] CentralEbtxiksJTQSKUEQZI2861-98-17 18:05:00 Test Item Value Reference Range Interpretation Comments Lymphocytes # (test code = Lymphocytes 2.2 1.0-5.5 #) [facility] CentralQfakeqdFOICZWAVOD5533-78-85 18:05:00 Test Item Value Reference Range Interpretation Comments Monocytes # (test code 0.5 See_Comment [Aut omated message] The = Monocytes #) system which generated this result tra nsmitted reference range : <=0.8. The reference r arelis was not used to int erpret this result as normal/abnormal . [facility] CentralMfarjmmNGNRDHHRJR9356-04-80 18:05:00 Test Item Value Reference Range Interpretation Comments Eosinophils # (test code 0.2 See_Comment [A utomated message] The = Eosinophils #) system whic h generated this result tra nsmitted reference range : <=0.5. The reference r arelis was not used to int erpret this result as normal/abnormal . [facility] CentralUhotcejEAPZAUBLOV8135-37-74 18:05:00 Test Item Value Reference Range Interpretation Comments Basophils # (test code 0.1 See_Comment [Aut omated message] The = Basophils #) system which generated this result tra nsmitted reference range : <=0.2. The reference r arelis was not used to int erpret this result as normal/abnormal . [facility] CentralGgmwzmvALNTLQPQFD4733-51-80 18:05:00 Test Item Value Reference Range Interpretation Comments WBC (test code = WBC) 8.2 3.7-10.4 [facility] CentralAdjjrjfOFNMQMRNRR4630-10-37 18:05:00 Test Item Value Reference Range Interpretation Comments RBC (test code = RBC) 2.71 4.20-5.40 [facility] CentralLyrpxgpLIKYNJKDNM1757-35-14 18:05:00 Test Item Value Reference Range Interpretation Comments MCV (test code = MCV) 88.3 80.0-98.0 [facility] CentralVgfzcbcKDVSGGLJRH3102-65-77 18:05:00 Test Item Value Reference Range Interpretation Comments MCH (test code = MCH) 28.5 pg 27.0-31.0 [facility] CentralIrqkbstFLRETIMGWF0223-31-67 18:05:00 Test Item Value Reference Range Interpretation Comments MCHC (test code = MCHC) 32.3 32.0-36.0 [facility] CentralRbhzyrrOXWYJLHWTS9524-71-67 18:05:00 Test Item Value Reference Range Interpretation Comments RDW (test code = RDW) 14.9 11.5-14.5 [facility] CentralBmeosaoPPWRJNNYIN3467-66-65 18:05:00 Test Item Value Reference Range Interpretation Comments Platelet (test code = Platelet) 408 133-450 [facility] CentralRjrerszVWNGVPTCLZ0212-41-96 18:05:00 Test Item Value Reference Range Interpretation Comments MPV (test code = MPV) 8.8 7.4-10.4 [facility] CentralWmvtquiKIGVNFKYAS0140-37-95 18:05:00 Test Item Value Reference Range Interpretation Comments Segs (test code = Segs) 63.7 45.0-75.0 [facility] CentralBpxwaqxIIJKTWPDNN8779-58-19 18:05:00 Test Item Value Reference Range Interpretation Comments Lymphocytes (test code = Lymphocytes) 26.6 20.0-40.0 [facility] CentralGniqjpqKFFLAOXART8384-40-55 18:05:00 Test Item Value Reference Range Interpretation Comments Monocytes (test code = Monocytes) 6.2 2.0-12.0 [facility] CentralDozrvtuHRTKHIPOZZ1860-88-27 18:05:00 Test Item Value Reference Range Interpretation Comments Eosinophils (test code = 2.6 See_Comment [A utomated message] The Eosinophils) system which ge nerated this result tra nsmitted reference range : <=4.0. The reference r arelis was not used to int erpret this result as normal/abnormal . [facility] CentralWlejievYVGNNNXERF0463-20-56 18:05:00 Test Item Value Reference Range Interpretation Comments Basophils (test code = 0.9 See_Comment [Aut omated message] The Basophils) system which ge nerated this result tra nsmitted reference range : <=1.0. The reference r arelis was not used to int erpret this result as normal/abnormal . [facility] CentralJwvzutqUZJQYBVAAA0640-29-34 18:05:00 Test Item Value Reference Range Interpretation Comments Neutrophils # (test code = Neutrophils 5.2 1.5-8.1 #) [facility] CentralPinaiefOBGFAHGZIR8964-19-39 18:05:00 Test Item Value Reference Range Interpretation Comments Lymphocytes # (test code = Lymphocytes 2.2 1.0-5.5 #) [facility] CentralNhhrwxgWIOKXSVEPM4793-99-51 18:05:00 Test Item Value Reference Range Interpretation Comments Monocytes # (test code 0.5 See_Comment [Aut omated message] The = Monocytes #) system which generated this result tra nsmitted reference range : <=0.8. The reference r arelis was not used to int erpret this result as normal/abnormal . [facility] CentralNfzupzqCRVDCMBJMU4218-85-04 18:05:00 Test Item Value Reference Range Interpretation Comments Eosinophils # (test code 0.2 See_Comment [A utomated message] The = Eosinophils #) system whic h generated this result tra nsmitted reference range : <=0.5. The reference r arelis was not used to int erpret this result as normal/abnormal . [facility] CentralFwmwxptUSFNQEQQEV0272-67-73 18:05:00 Test Item Value Reference Range Interpretation Comments Basophils # (test code 0.1 See_Comment [Aut omated message] The = Basophils #) system which generated this result tra nsmitted reference range : <=0.2. The reference r arelis was not used to int erpret this result as normal/abnormal . [facility] CentralPzgdtadCKGNVOPBWU8850-58-83 18:05:00 Test Item Value Reference Range Interpretation Comments WBC (test code = WBC) 8.2 3.7-10.4 [facility] CentralUcxpdktQITTZXKMHX6163-02-84 18:05:00 Test Item Value Reference Range Interpretation Comments RBC (test code = RBC) 2.71 4.20-5.40 [facility] CentralEqhbzhmERWUNCHCLQ0718-93-36 18:05:00 Test Item Value Reference Range Interpretation Comments MCV (test code = MCV) 88.3 80.0-98.0 [facility] CentralZquqcmkOMVMGGJOVM6149-39-52 18:05:00 Test Item Value Reference Range Interpretation Comments MCH (test code = MCH) 28.5 pg 27.0-31.0 [facility] CentralZdlhtdaYBSOEHPYTJ4246-72-70 18:05:00 Test Item Value Reference Range Interpretation Comments MCHC (test code = MCHC) 32.3 32.0-36.0 [facility] CentralRuxdxrvLLUKLHZBMG6867-11-99 18:05:00 Test Item Value Reference Range Interpretation Comments RDW (test code = RDW) 14.9 11.5-14.5 [facility] CentralZryxmhhEPKCKCWQBF9684-62-38 18:05:00 Test Item Value Reference Range Interpretation Comments Platelet (test code = Platelet) 408 133-450 [facility] CentralPikdjfdSWYMWUQMNI6953-81-55 18:05:00 Test Item Value Reference Range Interpretation Comments MPV (test code = MPV) 8.8 7.4-10.4 [facility] CentralKhggpqeCEWVVODUJC8328-35-53 18:05:00 Test Item Value Reference Range Interpretation Comments Segs (test code = Segs) 63.7 45.0-75.0 [facility] CentralRhtaszjVAVXITDNLS1527-49-09 18:05:00 Test Item Value Reference Range Interpretation Comments Lymphocytes (test code = Lymphocytes) 26.6 20.0-40.0 [facility] CentralLfqsaaxEOSTPGDBUW8817-83-50 18:05:00 Test Item Value Reference Range Interpretation Comments Monocytes (test code = Monocytes) 6.2 2.0-12.0 [facility] CentralLfrekdgGZISLPNWSJ9237-42-47 18:05:00 Test Item Value Reference Range Interpretation Comments Eosinophils (test code = 2.6 See_Comment [A utomated message] The Eosinophils) system which ge nerated this result tra nsmitted reference range : <=4.0. The reference r arelis was not used to int erpret this result as normal/abnormal . [facility] CentralOqpsxzeCYHGPQETWQ1253-71-63 18:05:00 Test Item Value Reference Range Interpretation Comments Basophils (test code = 0.9 See_Comment [Aut omated message] The Basophils) system which ge nerated this result tra nsmitted reference range : <=1.0. The reference r arleis was not used to int erpret this result as normal/abnormal . [facility] CentralIplfktzSTZCGKUJPB3140-84-18 18:05:00 Test Item Value Reference Range Interpretation Comments Neutrophils # (test code = Neutrophils 5.2 1.5-8.1 #) [facility] CentralLbindxbNBRVRYCACU0669-65-39 18:05:00 Test Item Value Reference Range Interpretation Comments Lymphocytes # (test code = Lymphocytes 2.2 1.0-5.5 #) [facility] CentralSznnksaDVLWDHCNCD8714-18-91 18:05:00 Test Item Value Reference Range Interpretation Comments Monocytes # (test code 0.5 See_Comment [Aut omated message] The = Monocytes #) system which generated this result tra nsmitted reference range : <=0.8. The reference r arelis was not used to int erpret this result as normal/abnormal . [facility] CentralRwxpietPNWQXNURIL3058-40-27 18:05:00 Test Item Value Reference Range Interpretation Comments Eosinophils # (test code 0.2 See_Comment [A utomated message] The = Eosinophils #) system ic h generated this result tra nsmitted reference range : <=0.5. The reference r arelis was not used to int erpret this result as normal/abnormal . [facility] CentralFpqutrxCGAFUEOZGX6492-53-56 18:05:00 Test Item Value Reference Range Interpretation Comments Basophils # (test code 0.1 See_Comment [Aut omated message] The = Basophils #) system which generated this result tra nsmitted reference range : <=0.2. The reference r arelis was not used to int erpret this result as normal/abnormal . [facility] CentralIprdpyjRQVRNFPVCV0717-81-10 18:05:00 Test Item Value Reference Range Interpretation Comments WBC (test code = WBC) 8.2 3.7-10.4 [facility] CentralYbdmqrbXAERWKWCEP8180-29-07 18:05:00 Test Item Value Reference Range Interpretation Comments RBC (test code = RBC) 2.71 4.20-5.40 [facility] CentralJatwtinKJUGOAOQPH7124-51-58 18:05:00 Test Item Value Reference Range Interpretation Comments MCV (test code = MCV) 88.3 80.0-98.0 [facility] CentralIlsmbeqRSXZCJTLUA9313-87-13 18:05:00 Test Item Value Reference Range Interpretation Comments MCH (test code = MCH) 28.5 pg 27.0-31.0 [facility] CentralXkqzwjuHAIPSHWEWW0123-57-03 18:05:00 Test Item Value Reference Range Interpretation Comments MCHC (test code = MCHC) 32.3 32.0-36.0 [facility] CentralBdmbpjoGRXTYLVTFK0440-84-06 18:05:00 Test Item Value Reference Range Interpretation Comments RDW (test code = RDW) 14.9 11.5-14.5 [facility] CentralCspgnouVWZZAZDMLR2716-61-16 18:05:00 Test Item Value Reference Range Interpretation Comments Platelet (test code = Platelet) 408 133-450 [facility] CentralIuufjvbZNYKGEOOBU8335-40-57 18:05:00 Test Item Value Reference Range Interpretation Comments MPV (test code = MPV) 8.8 7.4-10.4 [facility] CentralZabdealTSDAOHZHST6690-22-44 18:05:00 Test Item Value Reference Range Interpretation Comments Segs (test code = Segs) 63.7 45.0-75.0 [facility] CentralZvzqbxnHWKGFCOAPK1455-96-30 18:05:00 Test Item Value Reference Range Interpretation Comments Lymphocytes (test code = Lymphocytes) 26.6 20.0-40.0 [facility] CentralYjqaryhYPBXPZURNQ4600-86-50 18:05:00 Test Item Value Reference Range Interpretation Comments Monocytes (test code = Monocytes) 6.2 2.0-12.0 [place] 139731-08-20 18:05:00 Test Item Value Reference Range Interpretation Comments Eosinophils (test code = 2.6 See_Comment [A utomated message] The Eosinophils) system which ge nerated this result tra nsmitted reference range : <=4.0. The reference r arelis was not used to int erpret this result as normal/abnormal . [place] 139731-08-20 18:05:00 Test Item Value Reference Range Interpretation Comments Basophils (test code = 0.9 See_Comment [Aut omated message] The Basophils) system which ge nerated this result tra nsmitted reference range : <=1.0. The reference r arelis was not used to int erpret this result as normal/abnormal . [facility] CentralEsvhyiwFNTZWMLYMH8745-44-48 18:05:00 Test Item Value Reference Range Interpretation Comments Neutrophils # (test code = Neutrophils 5.2 1.5-8.1 #) [place] 139731-08-20 18:05:00 Test Item Value Reference Range Interpretation Comments Lymphocytes # (test code = Lymphocytes 2.2 1.0-5.5 #) [facility] CentralDkpqsoyZQJAUSNERO8664-14-00 18:05:00 Test Item Value Reference Range Interpretation Comments Monocytes # (test code 0.5 See_Comment [Aut omated message] The = Monocytes #) system which generated this result tra nsmitted reference range : <=0.8. The reference r arelis was not used to int erpret this result as normal/abnormal . [place] 139731-08-20 18:05:00 Test Item Value Reference Range Interpretation Comments Eosinophils # (test code 0.2 See_Comment [A utomated message] The = Eosinophils #) system whic h generated this result tra nsmitted reference range : <=0.5. The reference r arelis was not used to int erpret this result as normal/abnormal . [facility] CentralCruhhxbQEKPTARPNH0721-84-13 18:05:00 Test Item Value Reference Range Interpretation Comments Basophils # (test code 0.1 See_Comment [Aut omated message] The = Basophils #) system which generated this result tra nsmitted reference range : <=0.2. The reference r arelis was not used to int erpret this result as normal/abnormal . [facility] CentralFzdcxdqIVZDNYJJQJ3961-12-32 18:05:00 Test Item Value Reference Range Interpretation Comments WBC (test code = WBC) 8.2 3.7-10.4 [place] 139731-08-20 18:05:00 Test Item Value Reference Range Interpretation Comments RBC (test code = RBC) 2.71 4.20-5.40 [facility] CentralSnazvznWQDTABMEGZ6359-88-32 18:05:00 Test Item Value Reference Range Interpretation Comments MCV (test code = MCV) 88.3 80.0-98.0 [facility] CentralGucvicwEYRWZMHGXU8256-65-68 18:05:00 Test Item Value Reference Range Interpretation Comments MCH (test code = MCH) 28.5 pg 27.0-31.0 [facility] CentralSklxcazMSYADNPPIH7689-18-20 18:05:00 Test Item Value Reference Range Interpretation Comments MCHC (test code = MCHC) 32.3 32.0-36.0 [facility] CentralYjmfitrJDMWTGTBQA5467-99-82 18:05:00 Test Item Value Reference Range Interpretation Comments RDW (test code = RDW) 14.9 11.5-14.5 [facility] CentralSqulqrtHIQSVBPYRS9475-04-11 18:05:00 Test Item Value Reference Range Interpretation Comments Platelet (test code = Platelet) 408 133-450 [facility] CentralNhmujgwAROPZORYNH3108-20-02 18:05:00 Test Item Value Reference Range Interpretation Comments MPV (test code = MPV) 8.8 7.4-10.4 [facility] CentralKrxgswrDQLSNCRUMQ3774-13-06 18:05:00 Test Item Value Reference Range Interpretation Comments Segs (test code = Segs) 63.7 45.0-75.0 [facility] CentralDzzgkxcDEDRNWEBXH7570-59-62 18:05:00 Test Item Value Reference Range Interpretation Comments Lymphocytes (test code = Lymphocytes) 26.6 20.0-40.0 [facility] CentralPaajmkgWTUWECBIYT4617-90-70 18:05:00 Test Item Value Reference Range Interpretation Comments Monocytes (test code = Monocytes) 6.2 2.0-12.0 [facility] CentralFutsvhoTHDJMWIYDT7425-06-00 18:05:00 Test Item Value Reference Range Interpretation Comments Eosinophils (test code = 2.6 See_Comment [A utomated message] The Eosinophils) system which ge nerated this result tra nsmitted reference range : <=4.0. The reference r arelis was not used to int erpret this result as normal/abnormal . [facility] CentralVzewozlNADUCOIGIU7593-85-35 18:05:00 Test Item Value Reference Range Interpretation Comments Basophils (test code = 0.9 See_Comment [Aut omated message] The Basophils) system which ge nerated this result tra nsmitted reference range : <=1.0. The reference r arelis was not used to int erpret this result as normal/abnormal . [facility] CentralKegyswdPROKTGXNSW6417-84-13 18:05:00 Test Item Value Reference Range Interpretation Comments Neutrophils # (test code = Neutrophils 5.2 1.5-8.1 #) [facility] CentralCdukbyqLJUPYUJNAG4764-27-92 18:05:00 Test Item Value Reference Range Interpretation Comments Lymphocytes # (test code = Lymphocytes 2.2 1.0-5.5 #) [facility] CentralQikcbbxHUIDBFLFCF3271-76-32 18:05:00 Test Item Value Reference Range Interpretation Comments Monocytes # (test code 0.5 See_Comment [Aut omated message] The = Monocytes #) system which generated this result tra nsmitted reference range : <=0.8. The reference r arelis was not used to int erpret this result as normal/abnormal . [facility] CentralOjycuzrJTPYHCKJEP1255-44-90 18:05:00 Test Item Value Reference Range Interpretation Comments Eosinophils # (test code 0.2 See_Comment [A utomated message] The = Eosinophils #) system whic h generated this result tra nsmitted reference range : <=0.5. The reference r arelis was not used to int erpret this result as normal/abnormal . [facility] CentralGifprgvYHOLPFCJAD6360-54-97 18:05:00 Test Item Value Reference Range Interpretation Comments Basophils # (test code 0.1 See_Comment [Aut omated message] The = Basophils #) system which generated this result tra nsmitted reference range : <=0.2. The reference r arelis was not used to int erpret this result as normal/abnormal . [facility] CentralUbvzgfmYLVIPRTQTC1448-91-95 18:05:00 Test Item Value Reference Range Interpretation Comments WBC (test code = WBC) 8.2 3.7-10.4 [place] 139731-08-20 18:05:00 Test Item Value Reference Range Interpretation Comments RBC (test code = RBC) 2.71 4.20-5.40 [facility] CentralKgqqsntCHHYRTYIVW1986-79-48 18:05:00 Test Item Value Reference Range Interpretation Comments MCV (test code = MCV) 88.3 80.0-98.0 [facility] CentralDfbzvohUBKCALWUFA7709-74-30 18:05:00 Test Item Value Reference Range Interpretation Comments MCH (test code = MCH) 28.5 pg 27.0-31.0 [facility] CentralMbfwqhzBYGYBNDQAN2324-93-09 18:05:00 Test Item Value Reference Range Interpretation Comments MCHC (test code = MCHC) 32.3 32.0-36.0 [facility] CentralLhbcodhHMFOHSJTYA0392-93-74 18:05:00 Test Item Value Reference Range Interpretation Comments RDW (test code = RDW) 14.9 11.5-14.5 [facility] CentralHosxfrbSQMAEQCIRH0757-40-80 18:05:00 Test Item Value Reference Range Interpretation Comments Platelet (test code = Platelet) 408 133-450 [facility] CentralEgviheoERCUZVSUGA3985-45-48 18:05:00 Test Item Value Reference Range Interpretation Comments MPV (test code = MPV) 8.8 7.4-10.4 [facility] CentralJszjdhhZSMHKLVPEY1651-15-31 18:05:00 Test Item Value Reference Range Interpretation Comments Segs (test code = Segs) 63.7 45.0-75.0 [facility] CentralWhngfzxYICGHANTWM3860-34-37 18:05:00 Test Item Value Reference Range Interpretation Comments Lymphocytes (test code = Lymphocytes) 26.6 20.0-40.0 [facility] CentralZzxgmprWGBDVZCUPY5004-32-73 18:05:00 Test Item Value Reference Range Interpretation Comments Monocytes (test code = Monocytes) 6.2 2.0-12.0 [place] 139731-08-20 18:05:00 Test Item Value Reference Range Interpretation Comments Eosinophils (test code = 2.6 See_Comment [A utomated message] The Eosinophils) system which ge nerated this result tra nsmitted reference range : <=4.0. The reference r arelis was not used to int erpret this result as normal/abnormal . [facility] CentralArljimeHSUXLCNPLR1020-78-19 18:05:00 Test Item Value Reference Range Interpretation Comments Basophils (test code = 0.9 See_Comment [Aut omated message] The Basophils) system which ge nerated this result tra nsmitted reference range : <=1.0. The reference r arelis was not used to int erpret this result as normal/abnormal . [place] 139731-08-20 18:05:00 Test Item Value Reference Range Interpretation Comments Neutrophils # (test code = Neutrophils 5.2 1.5-8.1 #) [facility] CentralWliuahyCTSGRBEKBC8073-02-37 18:05:00 Test Item Value Reference Range Interpretation Comments Lymphocytes # (test code = Lymphocytes 2.2 1.0-5.5 #) [facility] CentralRphfveuWSEDUWIEAP9467-80-50 18:05:00 Test Item Value Reference Range Interpretation Comments Monocytes # (test code 0.5 See_Comment [Aut omated message] The = Monocytes #) system which generated this result tra nsmitted reference range : <=0.8. The reference r arelis was not used to int erpret this result as normal/abnormal . [facility] CentralJfxlgedXUNLFYZIXT5995-98-04 18:05:00 Test Item Value Reference Range Interpretation Comments Eosinophils # (test code 0.2 See_Comment [A utomated message] The = Eosinophils #) system whic h generated this result tra nsmitted reference range : <=0.5. The reference r arelis was not used to int erpret this result as normal/abnormal . [facility] CentralQsnvyxcQJSBOLCCAI4315-59-89 18:05:00 Test Item Value Reference Range Interpretation Comments Basophils # (test code 0.1 See_Comment [Aut omated message] The = Basophils #) system which generated this result tra nsmitted reference range : <=0.2. The reference r arelis was not used to int erpret this result as normal/abnormal . [facility] CentralCasyrryXKKZEVKABY1104-16-97 18:05:00 Test Item Value Reference Range Interpretation Comments WBC (test code = WBC) 8.2 3.7-10.4 [facility] CentralSqidtfcSDTQLMMQHT3287-98-09 18:05:00 Test Item Value Reference Range Interpretation Comments RBC (test code = RBC) 2.71 4.20-5.40 [place] 139731-08-20 18:05:00 Test Item Value Reference Range Interpretation Comments MCV (test code = MCV) 88.3 80.0-98.0 [facility] CentralQppyeeiWJOACHBWLW6814-50-47 18:05:00 Test Item Value Reference Range Interpretation Comments MCH (test code = MCH) 28.5 pg 27.0-31.0 [facility] CentralFmlckieOOICJZQBGH6124-56-29 18:05:00 Test Item Value Reference Range Interpretation Comments MCHC (test code = MCHC) 32.3 32.0-36.0 [facility] CentralCboiizqAFZBSKGFBZ3275-28-95 18:05:00 Test Item Value Reference Range Interpretation Comments RDW (test code = RDW) 14.9 11.5-14.5 [facility] CentralRkryommKSFOLAHQKO9400-73-86 18:05:00 Test Item Value Reference Range Interpretation Comments Platelet (test code = Platelet) 408 133-450 [facility] CentralYfhwybwFOXDCVPONL1767-48-55 18:05:00 Test Item Value Reference Range Interpretation Comments MPV (test code = MPV) 8.8 7.4-10.4 [facility] CentralXexkhxdZPLEFAYKHK1734-98-75 18:05:00 Test Item Value Reference Range Interpretation Comments Segs (test code = Segs) 63.7 45.0-75.0 [facility] CentralRipyonlZYTUAOQRVB9857-74-68 18:05:00 Test Item Value Reference Range Interpretation Comments Lymphocytes (test code = Lymphocytes) 26.6 20.0-40.0 [facility] CentralZtpyrzoVCSAWECYEE7190-26-61 18:05:00 Test Item Value Reference Range Interpretation Comments Monocytes (test code = Monocytes) 6.2 2.0-12.0 [facility] CentralNaijgdiAKCCMXYMIT4665-43-17 18:05:00 Test Item Value Reference Range Interpretation Comments Eosinophils (test code = 2.6 See_Comment [A utomated message] The Eosinophils) system which ge nerated this result tra nsmitted reference range : <=4.0. The reference r arelis was not used to int erpret this result as normal/abnormal . [facility] CentralOognjhhECKJBCLWBT3592-61-61 18:05:00 Test Item Value Reference Range Interpretation Comments Basophils (test code = 0.9 See_Comment [Aut omated message] The Basophils) system which ge nerated this result tra nsmitted reference range : <=1.0. The reference r arelis was not used to int erpret this result as normal/abnormal . [place] 139731-08-20 18:05:00 Test Item Value Reference Range Interpretation Comments Neutrophils # (test code = Neutrophils 5.2 1.5-8.1 #) [facility] CentralZotgtauROPVGPARTD0032-69-66 18:05:00 Test Item Value Reference Range Interpretation Comments Lymphocytes # (test code = Lymphocytes 2.2 1.0-5.5 #) [facility] CentralUfjybfdDFTPSGFCBQ3698-88-35 18:05:00 Test Item Value Reference Range Interpretation Comments Monocytes # (test code 0.5 See_Comment [Aut omated message] The = Monocytes #) system which generated this result tra nsmitted reference range : <=0.8. The reference r arelis was not used to int erpret this result as normal/abnormal . [facility] CentralGwuviiwJUYHSPPLOX8697-13-35 18:05:00 Test Item Value Reference Range Interpretation Comments Eosinophils # (test code 0.2 See_Comment [A utomated message] The = Eosinophils #) system whic h generated this result tra nsmitted reference range : <=0.5. The reference r arelis was not used to int erpret this result as normal/abnormal . [facility] CentralTzzvpnwNBMQHBZVJQ7253-21-02 18:05:00 Test Item Value Reference Range Interpretation Comments Basophils # (test code 0.1 See_Comment [Aut omated message] The = Basophils #) system which generated this result tra nsmitted reference range : <=0.2. The reference r arelis was not used to int erpret this result as normal/abnormal . [facility] CentralNvkkxkpJJSVPYUXYN0080-11-24 18:05:00 Test Item Value Reference Range Interpretation Comments WBC (test code = WBC) 8.2 3.7-10.4 [place] 139731-08-20 18:05:00 Test Item Value Reference Range Interpretation Comments RBC (test code = RBC) 2.71 4.20-5.40 [place] 139731-08-20 18:05:00 Test Item Value Reference Range Interpretation Comments MCV (test code = MCV) 88.3 80.0-98.0 [place] 139731-08-20 18:05:00 Test Item Value Reference Range Interpretation Comments MCH (test code = MCH) 28.5 pg 27.0-31.0 [place] 139731-08-20 18:05:00 Test Item Value Reference Range Interpretation Comments MCHC (test code = MCHC) 32.3 32.0-36.0 [facility] CentralDlndeskZWJOIAPTTV0400-67-79 18:05:00 Test Item Value Reference Range Interpretation Comments RDW (test code = RDW) 14.9 11.5-14.5 [facility] CentralFjchspvNTKLDBJTTT3839-93-23 18:05:00 Test Item Value Reference Range Interpretation Comments Platelet (test code = Platelet) 408 133-450 [facility] CentralNakzxlfKPHBRVLWCH8402-83-95 18:05:00 Test Item Value Reference Range Interpretation Comments MPV (test code = MPV) 8.8 7.4-10.4 [facility] CentralKmqkktiCZDGFYTWSH1583-18-46 18:05:00 Test Item Value Reference Range Interpretation Comments Segs (test code = Segs) 63.7 45.0-75.0 [facility] CentralQajmmgaYLMWIRCIDU8572-26-33 18:05:00 Test Item Value Reference Range Interpretation Comments Lymphocytes (test code = Lymphocytes) 26.6 20.0-40.0 [facility] CentralLidehlvAAIZJWDTIK1656-42-92 18:05:00 Test Item Value Reference Range Interpretation Comments Monocytes (test code = Monocytes) 6.2 2.0-12.0 [facility] CentralAhfhfbjXNJSNLDSES2747-58-79 18:05:00 Test Item Value Reference Range Interpretation Comments Eosinophils (test code = 2.6 See_Comment [A utomated message] The Eosinophils) system which ge nerated this result tra nsmitted reference range : <=4.0. The reference r arelis was not used to int erpret this result as normal/abnormal . [facility] CentralVgmcelzBUQWGLFQKW7922-38-48 18:05:00 Test Item Value Reference Range Interpretation Comments Basophils (test code = 0.9 See_Comment [Aut omated message] The Basophils) system which ge nerated this result tra nsmitted reference range : <=1.0. The reference r arelis was not used to int erpret this result as normal/abnormal . [facility] CentralYnmbitrFANGYCPTPW4185-62-55 18:05:00 Test Item Value Reference Range Interpretation Comments Neutrophils # (test code = Neutrophils 5.2 1.5-8.1 #) [facility] CentralGcwottyOUFDLZKZQS0700-78-19 18:05:00 Test Item Value Reference Range Interpretation Comments Lymphocytes # (test code = Lymphocytes 2.2 1.0-5.5 #) [facility] CentralWbaysruIQFMAXHYSN0452-84-96 18:05:00 Test Item Value Reference Range Interpretation Comments Monocytes # (test code 0.5 See_Comment [Aut omated message] The = Monocytes #) system which generated this result tra nsmitted reference range : <=0.8. The reference r arelis was not used to int erpret this result as normal/abnormal . [facility] CentralUryabtrYAOASBVQAE8902-06-53 18:05:00 Test Item Value Reference Range Interpretation Comments Eosinophils # (test code 0.2 See_Comment [A utomated message] The = Eosinophils #) system whic h generated this result tra nsmitted reference range : <=0.5. The reference r arelis was not used to int erpret this result as normal/abnormal . [facility] CentralQbimxyiCJFKAKBLNT6088-65-64 18:05:00 Test Item Value Reference Range Interpretation Comments Basophils # (test code 0.1 See_Comment [Aut omated message] The = Basophils #) system which generated this result tra nsmitted reference range : <=0.2. The reference r arelis was not used to int erpret this result as normal/abnormal . [facility] CentralXlxfegzMOYYKEEDAL3773-32-03 18:05:00 Test Item Value Reference Range Interpretation Comments WBC (test code = WBC) 8.2 3.7-10.4 [facility] CentralUaktcokZNBBDGKTEH7124-93-31 18:05:00 Test Item Value Reference Range Interpretation Comments RBC (test code = RBC) 2.71 4.20-5.40 [place] 139731-08-20 18:05:00 Test Item Value Reference Range Interpretation Comments MCV (test code = MCV) 88.3 80.0-98.0 [facility] CentralUvhvctiRENCWFFKXW4828-35-30 18:05:00 Test Item Value Reference Range Interpretation Comments MCH (test code = MCH) 28.5 pg 27.0-31.0 [facility] CentralNocxbkzOQRJQOLKMM5810-17-07 18:05:00 Test Item Value Reference Range Interpretation Comments MCHC (test code = MCHC) 32.3 32.0-36.0 [facility] CentralJapryffBQRYFTPALB6677-66-42 18:05:00 Test Item Value Reference Range Interpretation Comments RDW (test code = RDW) 14.9 11.5-14.5 [facility] CentralUasaoviDFCFOHNWYX5073-35-40 18:05:00 Test Item Value Reference Range Interpretation Comments Platelet (test code = Platelet) 408 133-450 [facility] CentralHvlpvrmWCZLZZKBYV7819-65-28 18:05:00 Test Item Value Reference Range Interpretation Comments MPV (test code = MPV) 8.8 7.4-10.4 [facility] CentralOmngbxzGWWAYDNAUA7761-74-26 18:05:00 Test Item Value Reference Range Interpretation Comments Segs (test code = Segs) 63.7 45.0-75.0 [facility] CentralYqqxpjeJQQJXNXSWX1850-82-27 18:05:00 Test Item Value Reference Range Interpretation Comments Lymphocytes (test code = Lymphocytes) 26.6 20.0-40.0 [facility] CentralIuboufhIEIQSBGJSC0194-18-24 18:05:00 Test Item Value Reference Range Interpretation Comments Monocytes (test code = Monocytes) 6.2 2.0-12.0 [facility] CentralOgfnwvyOATHXXBTBX5102-42-53 18:05:00 Test Item Value Reference Range Interpretation Comments Eosinophils (test code = 2.6 See_Comment [A utomated message] The Eosinophils) system which ge nerated this result tra nsmitted reference range : <=4.0. The reference r arelis was not used to int erpret this result as normal/abnormal . [facility] CentralGspkueoISNZBZCXKS2280-75-60 18:05:00 Test Item Value Reference Range Interpretation Comments Basophils (test code = 0.9 See_Comment [Aut omated message] The Basophils) system which ge nerated this result tra nsmitted reference range : <=1.0. The reference r arelis was not used to int erpret this result as normal/abnormal . [facility] CentralSktvoktQARFZDUMVF0679-25-32 18:05:00 Test Item Value Reference Range Interpretation Comments Neutrophils # (test code = Neutrophils 5.2 1.5-8.1 #) [place] 139731-08-20 18:05:00 Test Item Value Reference Range Interpretation Comments Lymphocytes # (test code = Lymphocytes 2.2 1.0-5.5 #) [facility] CentralJgmdjaeDWVCUYONYS3965-90-98 18:05:00 Test Item Value Reference Range Interpretation Comments Monocytes # (test code 0.5 See_Comment [Aut omated message] The = Monocytes #) system which generated this result tra nsmitted reference range : <=0.8. The reference r arelis was not used to int erpret this result as normal/abnormal . [facility] CentralIebctujALCWHSEEDC5852-08-57 18:05:00 Test Item Value Reference Range Interpretation Comments Eosinophils # (test code 0.2 See_Comment [A utomated message] The = Eosinophils #) system whic h generated this result tra nsmitted reference range : <=0.5. The reference r arelis was not used to int erpret this result as normal/abnormal . [facility] CentralXhskbitQQLCTDBNHC7400-22-79 18:05:00 Test Item Value Reference Range Interpretation Comments Basophils # (test code 0.1 See_Comment [Aut omated message] The = Basophils #) system which generated this result tra nsmitted reference range : <=0.2. The reference r arelis was not used to int erpret this result as normal/abnormal . [facility] CentralJmcdfiuAFUJMAERLH7305-57-19 18:05:00 Test Item Value Reference Range Interpretation Comments WBC (test code = WBC) 8.2 3.7-10.4 [facility] CentralSfbvaziBAVAWTDABV7786-33-05 18:05:00 Test Item Value Reference Range Interpretation Comments RBC (test code = RBC) 2.71 4.20-5.40 [facility] CentralMafzeqwBQDEBWYYMT2730-84-76 18:05:00 Test Item Value Reference Range Interpretation Comments MCV (test code = MCV) 88.3 80.0-98.0 [facility] CentralRlfppjfGBATWAOMPS4010-99-52 18:05:00 Test Item Value Reference Range Interpretation Comments MCH (test code = MCH) 28.5 pg 27.0-31.0 [facility] CentralYgspxmvRBNEJDEJLT8418-75-97 18:05:00 Test Item Value Reference Range Interpretation Comments MCHC (test code = MCHC) 32.3 32.0-36.0 [facility] CentralTpuirirQZQKPURHOE3229-63-98 18:05:00 Test Item Value Reference Range Interpretation Comments RDW (test code = RDW) 14.9 11.5-14.5 [facility] CentralNnarxjoGUAASZCVAI6949-51-66 18:05:00 Test Item Value Reference Range Interpretation Comments Platelet (test code = Platelet) 408 133-450 [facility] CentralEcxnpwkSWNHRIBOPM9173-21-00 18:05:00 Test Item Value Reference Range Interpretation Comments MPV (test code = MPV) 8.8 7.4-10.4 [facility] CentralUxxqosqHQHWIJLTLW5522-96-80 18:05:00 Test Item Value Reference Range Interpretation Comments Segs (test code = Segs) 63.7 45.0-75.0 [facility] CentralFeosbzrMPNWWZVTWF1647-65-01 18:05:00 Test Item Value Reference Range Interpretation Comments Lymphocytes (test code = Lymphocytes) 26.6 20.0-40.0 [facility] CentralJdzolryGWOVAAFRLU0426-92-59 18:05:00 Test Item Value Reference Range Interpretation Comments Monocytes (test code = Monocytes) 6.2 2.0-12.0 [facility] CentralHlsullcIQXIQLIEEG1776-93-48 18:05:00 Test Item Value Reference Range Interpretation Comments Eosinophils (test code = 2.6 See_Comment [A utomated message] The Eosinophils) system which ge nerated this result tra nsmitted reference range : <=4.0. The reference r arelis was not used to int erpret this result as normal/abnormal . [facility] CentralQniyqvvDHAPXFJRER8147-89-83 18:05:00 Test Item Value Reference Range Interpretation Comments Basophils (test code = 0.9 See_Comment [Aut omated message] The Basophils) system which ge nerated this result tra nsmitted reference range : <=1.0. The reference r arelis was not used to int erpret this result as normal/abnormal . [facility] CentralKarffueBVXWPESHDA6817-71-67 18:05:00 Test Item Value Reference Range Interpretation Comments Neutrophils # (test code = Neutrophils 5.2 1.5-8.1 #) [facility] CentralZohqinjOHJTHFTDSN7564-43-56 18:05:00 Test Item Value Reference Range Interpretation Comments Lymphocytes # (test code = Lymphocytes 2.2 1.0-5.5 #) [facility] CentralYkzklewIRHROSFSUW2230-01-51 18:05:00 Test Item Value Reference Range Interpretation Comments Monocytes # (test code 0.5 See_Comment [Aut omated message] The = Monocytes #) system which generated this result tra nsmitted reference range : <=0.8. The reference r arelis was not used to int erpret this result as normal/abnormal . [facility] CentralGmgbkseJQJELZNDYP6818-79-90 18:05:00 Test Item Value Reference Range Interpretation Comments Eosinophils # (test code 0.2 See_Comment [A utomated message] The = Eosinophils #) system whic h generated this result tra nsmitted reference range : <=0.5. The reference r areils was not used to int erpret this result as normal/abnormal . [facility] CentralMoahelrCVGPMWMODS4652-67-62 18:05:00 Test Item Value Reference Range Interpretation Comments Basophils # (test code 0.1 See_Comment [Aut omated message] The = Basophils #) system which generated this result tra nsmitted reference range : <=0.2. The reference r arelis was not used to int erpret this result as normal/abnormal . [facility] CentralJsqbvdnCSLDVQJKJE9550-28-01 18:05:00 Test Item Value Reference Range Interpretation Comments WBC (test code = WBC) 8.2 3.7-10.4 [facility] CentralVhxzfqwHCPIKPYPTJ2493-00-87 18:05:00 Test Item Value Reference Range Interpretation Comments RBC (test code = RBC) 2.71 4.20-5.40 [facility] CentralXbxldawFYMDKXTYPI0012-07-07 18:05:00 Test Item Value Reference Range Interpretation Comments MCV (test code = MCV) 88.3 80.0-98.0 [facility] CentralHrkehmnBHHBKAXCGD2611-26-52 18:05:00 Test Item Value Reference Range Interpretation Comments MCH (test code = MCH) 28.5 pg 27.0-31.0 [facility] CentralNasodeoLXSOJNIRCC2683-42-13 18:05:00 Test Item Value Reference Range Interpretation Comments MCHC (test code = MCHC) 32.3 32.0-36.0 [facility] CentralUqkxwqdIIPNAMSYFU2695-09-04 18:05:00 Test Item Value Reference Range Interpretation Comments RDW (test code = RDW) 14.9 11.5-14.5 [facility] CentralRwytxkpYUSQJMQAXG4139-90-02 18:05:00 Test Item Value Reference Range Interpretation Comments Platelet (test code = Platelet) 408 133-450 [facility] CentralQsajxwxQWDLKCUBMF8615-63-56 18:05:00 Test Item Value Reference Range Interpretation Comments MPV (test code = MPV) 8.8 7.4-10.4 [facility] CentralPglnvagQMEVDPSFAQ6352-95-80 18:05:00 Test Item Value Reference Range Interpretation Comments Segs (test code = Segs) 63.7 45.0-75.0 [facility] CentralFftstmwEISUZKXHCY4712-66-44 18:05:00 Test Item Value Reference Range Interpretation Comments Lymphocytes (test code = Lymphocytes) 26.6 20.0-40.0 [facility] CentralRwpkfetJKBIHECJAW9882-64-40 18:05:00 Test Item Value Reference Range Interpretation Comments Monocytes (test code = Monocytes) 6.2 2.0-12.0 [facility] CentralSaauvbuOFOYCBHGIX7746-44-61 18:05:00 Test Item Value Reference Range Interpretation Comments Eosinophils (test code = 2.6 See_Comment [A utomated message] The Eosinophils) system which ge nerated this result tra nsmitted reference range : <=4.0. The reference r arelis was not used to int erpret this result as normal/abnormal . [facility] CentralEhnvegxBOMTOPRXTS7431-61-80 18:05:00 Test Item Value Reference Range Interpretation Comments Basophils (test code = 0.9 See_Comment [Aut omated message] The Basophils) system which ge nerated this result tra nsmitted reference range : <=1.0. The reference r arelis was not used to int erpret this result as normal/abnormal . [facility] CentralMgcvvidFBJHTNTEXZ8515-18-03 18:05:00 Test Item Value Reference Range Interpretation Comments Neutrophils # (test code = Neutrophils 5.2 1.5-8.1 #) [facility] CentralZmhavqkCHABVMMPKU3954-19-13 18:05:00 Test Item Value Reference Range Interpretation Comments Lymphocytes # (test code = Lymphocytes 2.2 1.0-5.5 #) [facility] CentralLihsnkyUOEDBZFGFK8011-65-35 18:05:00 Test Item Value Reference Range Interpretation Comments Monocytes # (test code 0.5 See_Comment [Aut omated message] The = Monocytes #) system which generated this result tra nsmitted reference range : <=0.8. The reference r arelis was not used to int erpret this result as normal/abnormal . [facility] CentralGzylfthXSQDFBFQFB5575-16-45 18:05:00 Test Item Value Reference Range Interpretation Comments Eosinophils # (test code 0.2 See_Comment [A utomated message] The = Eosinophils #) system whic h generated this result tra nsmitted reference range : <=0.5. The reference r arelis was not used to int erpret this result as normal/abnormal . [facility] CentralPnjjuoaWBQDQXWMGR0231-24-86 18:05:00 Test Item Value Reference Range Interpretation Comments Basophils # (test code 0.1 See_Comment [Aut omated message] The = Basophils #) system which generated this result tra nsmitted reference range : <=0.2. The reference r arelis was not used to int erpret this result as normal/abnormal . [facility] CentralBwvlebkLPFYQGKQBC0779-08-72 18:05:00 Test Item Value Reference Range Interpretation Comments WBC (test code = WBC) 8.2 3.7-10.4 [facility] CentralBfwldtyKDCWFXVSIZ5956-28-45 18:05:00 Test Item Value Reference Range Interpretation Comments RBC (test code = RBC) 2.71 4.20-5.40 [facility] CentralEkmgdpvWRNOCDCYFI9216-95-11 18:05:00 Test Item Value Reference Range Interpretation Comments MCV (test code = MCV) 88.3 80.0-98.0 [facility] CentralVsmoalrCCJZGNJEOO0603-51-10 18:05:00 Test Item Value Reference Range Interpretation Comments MCH (test code = MCH) 28.5 pg 27.0-31.0 [facility] CentralBnctrowPSBNNKIRXL6618-47-22 18:05:00 Test Item Value Reference Range Interpretation Comments MCHC (test code = MCHC) 32.3 32.0-36.0 [facility] CentralHlgweitJFOSQGBDBH7383-65-49 18:05:00 Test Item Value Reference Range Interpretation Comments RDW (test code = RDW) 14.9 11.5-14.5 [facility] CentralGbsunaeYQSLVQGWSP8487-04-82 18:05:00 Test Item Value Reference Range Interpretation Comments Platelet (test code = Platelet) 408 133-450 [facility] CentralRxktssmXBMXNGJBUA2376-74-20 18:05:00 Test Item Value Reference Range Interpretation Comments MPV (test code = MPV) 8.8 7.4-10.4 [facility] CentralIwlqittDWTXNRTMPZ3900-11-73 18:05:00 Test Item Value Reference Range Interpretation Comments Segs (test code = Segs) 63.7 45.0-75.0 [facility] CentralYzfayohBRCJAILVXN3763-58-17 18:05:00 Test Item Value Reference Range Interpretation Comments Lymphocytes (test code = Lymphocytes) 26.6 20.0-40.0 [facility] CentralCykhvkaTIWAPSXKCI0743-08-31 18:05:00 Test Item Value Reference Range Interpretation Comments Monocytes (test code = Monocytes) 6.2 2.0-12.0 [place] 139731-08-20 18:05:00 Test Item Value Reference Range Interpretation Comments Eosinophils (test code = 2.6 See_Comment [A utomated message] The Eosinophils) system which ge nerated this result tra nsmitted reference range : <=4.0. The reference r arelis was not used to int erpret this result as normal/abnormal . [place] 139731-08-20 18:05:00 Test Item Value Reference Range Interpretation Comments Basophils (test code = 0.9 See_Comment [Aut omated message] The Basophils) system which ge nerated this result tra nsmitted reference range : <=1.0. The reference r arelis was not used to int erpret this result as normal/abnormal . [place] 139731-08-20 18:05:00 Test Item Value Reference Range Interpretation Comments Neutrophils # (test code = Neutrophils 5.2 1.5-8.1 #) [place] 139731-08-20 18:05:00 Test Item Value Reference Range Interpretation Comments Lymphocytes # (test code = Lymphocytes 2.2 1.0-5.5 #) [place] 139731-08-20 18:05:00 Test Item Value Reference Range Interpretation Comments Monocytes # (test code 0.5 See_Comment [Aut omated message] The = Monocytes #) system which generated this result tra nsmitted reference range : <=0.8. The reference r arelis was not used to int erpret this result as normal/abnormal . [facility] CentralHjzzzunQBKITMMHFX7150-97-71 18:05:00 Test Item Value Reference Range Interpretation Comments Eosinophils # (test code 0.2 See_Comment [A utomated message] The = Eosinophils #) system whic h generated this result tra nsmitted reference range : <=0.5. The reference r arelis was not used to int erpret this result as normal/abnormal . [place] 139731-08-20 18:05:00 Test Item Value Reference Range Interpretation Comments Basophils # (test code 0.1 See_Comment [Aut omated message] The = Basophils #) system which generated this result tra nsmitted reference range : <=0.2. The reference r arelis was not used to int erpret this result as normal/abnormal . [facility] CentralPhasuytDEIPQJTKFF9043-28-62 18:05:00 Test Item Value Reference Range Interpretation Comments WBC (test code = WBC) 8.2 3.7-10.4 [facility] CentralFlmvgleERGHHUHQQF1359-73-11 18:05:00 Test Item Value Reference Range Interpretation Comments RBC (test code = RBC) 2.71 4.20-5.40 [facility] CentralIpmycwbADMXZGYLLS6295-10-76 18:05:00 Test Item Value Reference Range Interpretation Comments MCV (test code = MCV) 88.3 80.0-98.0 [facility] CentralYxpfbdtIFPIADFSOJ8906-63-20 18:05:00 Test Item Value Reference Range Interpretation Comments MCH (test code = MCH) 28.5 pg 27.0-31.0 [facility] CentralWzblvzgKOWNMJRPWZ9429-90-04 18:05:00 Test Item Value Reference Range Interpretation Comments MCHC (test code = MCHC) 32.3 32.0-36.0 [facility] CentralPumalndDYWWESYFYX4890-12-68 18:05:00 Test Item Value Reference Range Interpretation Comments RDW (test code = RDW) 14.9 11.5-14.5 [facility] CentralXxahwyfUKQMEKHGZY7851-05-22 18:05:00 Test Item Value Reference Range Interpretation Comments Platelet (test code = Platelet) 408 133-450 [facility] CentralHoctmrsDLTZXMEQMI8028-49-69 18:05:00 Test Item Value Reference Range Interpretation Comments MPV (test code = MPV) 8.8 7.4-10.4 [facility] CentralHubemhvLYYVFHOUKP2223-90-21 18:05:00 Test Item Value Reference Range Interpretation Comments Segs (test code = Segs) 63.7 45.0-75.0 [facility] CentralBgmjczqZVARTSNPAM3412-77-19 18:05:00 Test Item Value Reference Range Interpretation Comments Lymphocytes (test code = Lymphocytes) 26.6 20.0-40.0 [facility] CentralSnzancoCSXMMYNHBB3538-62-42 18:05:00 Test Item Value Reference Range Interpretation Comments Monocytes (test code = Monocytes) 6.2 2.0-12.0 [facility] CentralOidizjfEMPRYMCPBA9367-08-50 18:05:00 Test Item Value Reference Range Interpretation Comments Eosinophils (test code = 2.6 See_Comment [A utomated message] The Eosinophils) system which ge nerated this result tra nsmitted reference range : <=4.0. The reference r arelis was not used to int erpret this result as normal/abnormal . [facility] CentralLsqtbvkUVNSXJYDGF8355-88-01 18:05:00 Test Item Value Reference Range Interpretation Comments Basophils (test code = 0.9 See_Comment [Aut omated message] The Basophils) system which ge nerated this result tra nsmitted reference range : <=1.0. The reference r arelis was not used to int erpret this result as normal/abnormal . [facility] CentralTfhwqysANWIKMOJEE1754-69-86 18:05:00 Test Item Value Reference Range Interpretation Comments Neutrophils # (test code = Neutrophils 5.2 1.5-8.1 #) [facility] CentralJfpdwcoECUGPSLTXF2981-47-55 18:05:00 Test Item Value Reference Range Interpretation Comments Lymphocytes # (test code = Lymphocytes 2.2 1.0-5.5 #) [facility] CentralMmegsyaABIVICHODZ3544-56-09 18:05:00 Test Item Value Reference Range Interpretation Comments Monocytes # (test code 0.5 See_Comment [Aut omated message] The = Monocytes #) system which generated this result tra nsmitted reference range : <=0.8. The reference r arelis was not used to int erpret this result as normal/abnormal . [facility] CentralEmfwsuuOIWXHPARQU0991-49-53 18:05:00 Test Item Value Reference Range Interpretation Comments Eosinophils # (test code 0.2 See_Comment [A utomated message] The = Eosinophils #) system whic h generated this result tra nsmitted reference range : <=0.5. The reference r arelis was not used to int erpret this result as normal/abnormal . [facility] CentralClpffjtZFJSKTWZBC5853-69-61 18:05:00 Test Item Value Reference Range Interpretation Comments Basophils # (test code 0.1 See_Comment [Aut omated message] The = Basophils #) system which generated this result tra nsmitted reference range : <=0.2. The reference r arelis was not used to int erpret this result as normal/abnormal . [facility] CentralJkmthweCVYVNQDZFH3935-66-67 18:05:00 Test Item Value Reference Range Interpretation Comments WBC (test code = WBC) 8.2 3.7-10.4 [facility] CentralUahfgkzCGCRROFPMI9996-01-19 18:05:00 Test Item Value Reference Range Interpretation Comments RBC (test code = RBC) 2.71 4.20-5.40 [facility] CentralPmolsumMVDZQXXTXV7421-87-12 18:05:00 Test Item Value Reference Range Interpretation Comments MCV (test code = MCV) 88.3 80.0-98.0 [facility] CentralSyphbatVSDOSSRUMZ1308-67-42 18:05:00 Test Item Value Reference Range Interpretation Comments MCH (test code = MCH) 28.5 pg 27.0-31.0 [facility] CentralLxzlvojVAPSQOQKMQ0296-74-69 18:05:00 Test Item Value Reference Range Interpretation Comments MCHC (test code = MCHC) 32.3 32.0-36.0 [facility] CentralZdjmfigQRSDCTEOSD8641-65-01 18:05:00 Test Item Value Reference Range Interpretation Comments RDW (test code = RDW) 14.9 11.5-14.5 [facility] CentralVjrasyfYUMQSEFXDR6704-46-15 18:05:00 Test Item Value Reference Range Interpretation Comments Platelet (test code = Platelet) 408 133-450 [facility] CentralGghkuqjDDSXZIQXMT4043-44-63 18:05:00 Test Item Value Reference Range Interpretation Comments MPV (test code = MPV) 8.8 7.4-10.4 [facility] CentralKwembcbMANRCWYKIZ0548-62-78 18:05:00 Test Item Value Reference Range Interpretation Comments Segs (test code = Segs) 63.7 45.0-75.0 [facility] CentralPnzwmvlMWKPFFLGVH5129-69-68 18:05:00 Test Item Value Reference Range Interpretation Comments Lymphocytes (test code = Lymphocytes) 26.6 20.0-40.0 [facility] CentralDfiirchQOMJVXYRIO0783-34-29 18:05:00 Test Item Value Reference Range Interpretation Comments Monocytes (test code = Monocytes) 6.2 2.0-12.0 [facility] CentralLyoxwdmSUCHCEXLRE2891-81-41 18:05:00 Test Item Value Reference Range Interpretation Comments Eosinophils (test code = 2.6 See_Comment [A utomated message] The Eosinophils) system which ge nerated this result tra nsmitted reference range : <=4.0. The reference r arelis was not used to int erpret this result as normal/abnormal . [facility] CentralGhiixptXYGATEPGTO6946-59-71 18:05:00 Test Item Value Reference Range Interpretation Comments Basophils (test code = 0.9 See_Comment [Aut omated message] The Basophils) system which ge nerated this result tra nsmitted reference range : <=1.0. The reference r arelis was not used to int erpret this result as normal/abnormal . [facility] CentralUkhmsivRNVMCVMHZO8998-83-43 18:05:00 Test Item Value Reference Range Interpretation Comments Neutrophils # (test code = Neutrophils 5.2 1.5-8.1 #) [facility] CentralUobbhboZXTWORVYQM1369-71-46 18:05:00 Test Item Value Reference Range Interpretation Comments Lymphocytes # (test code = Lymphocytes 2.2 1.0-5.5 #) [facility] CentralSeixojdFQVVIBNIVL4105-86-44 18:05:00 Test Item Value Reference Range Interpretation Comments Monocytes # (test code 0.5 See_Comment [Aut omated message] The = Monocytes #) system which generated this result tra nsmitted reference range : <=0.8. The reference r arelis was not used to int erpret this result as normal/abnormal . [facility] CentralPapgbmdFGNAUURZCV2907-54-24 18:05:00 Test Item Value Reference Range Interpretation Comments Eosinophils # (test code 0.2 See_Comment [A utomated message] The = Eosinophils #) system whic h generated this result tra nsmitted reference range : <=0.5. The reference r arelis was not used to int erpret this result as normal/abnormal . [facility] CentralPirtkmlGRAJTMBPZY4145-71-90 18:05:00 Test Item Value Reference Range Interpretation Comments Basophils # (test code 0.1 See_Comment [Aut omated message] The = Basophils #) system which generated this result tra nsmitted reference range : <=0.2. The reference r arelis was not used to int erpret this result as normal/abnormal . [facility] CentralKylorabUVRKJWJZOH5523-36-00 18:05:008.2[facility] 2021-02-10 18:05:00 Test Item Value Reference Range Interpretation Comments WBC (test code = WBC) 8.2 3.7-10.4 [facility] CentralYghigpdBBMTBOCRHL8810-22-50 18:05:00 Test Item Value Reference Range Interpretation Comments RBC (test code = RBC) 2.71 4.20-5.40 [facility] CentralDshogkqWUNUGGPIXF5838-45-74 18:05:00 Test Item Value Reference Range Interpretation Comments MCV (test code = MCV) 88.3 80.0-98.0 [facility] CentralGjndfqzFLVUTFJWKL7892-99-95 18:05:00 Test Item Value Reference Range Interpretation Comments MCH (test code = MCH) 28.5 pg 27.0-31.0 [facility] CentralRzjbmmkBQLYQPPOGT2351-87-13 18:05:00 Test Item Value Reference Range Interpretation Comments MCHC (test code = MCHC) 32.3 32.0-36.0 [facility] CentralBsfveyvISFMOPPVAN8969-00-43 18:05:00 Test Item Value Reference Range Interpretation Comments RDW (test code = RDW) 14.9 11.5-14.5 [facility] CentralBrnrpqjXVDDVUMRVK0346-01-51 18:05:00 Test Item Value Reference Range Interpretation Comments Platelet (test code = Platelet) 408 133-450 [facility] CentralRtbxxrsSLTVHAXITP5154-12-01 18[facility] 18:05:00 Test Item Value Reference Range Interpretation Comments MPV (test code = MPV) 8.8 7.4-10.4 [facility] CentralXnfmnweJMSYHCOXHS2615-85-24 18:05:00 Test Item Value Reference Range Interpretation Comments Segs (test code = Segs) 63.7 45.0-75.0 [facility] CentralTjfttywCMOACHWRSK5953-00-93 18:05:00 Test Item Value Reference Range Interpretation Comments Lymphocytes (test code = Lymphocytes) 26.6 20.0-40.0 [facility] CentralLzjgvqeATGATYTLAI0642-26-57 18:05:00 Test Item Value Reference Range Interpretation Comments Monocytes (test code = Monocytes) 6.2 2.0-12.0 [facility] CentralStolepkVERAOFXXYS3195-92-06 18:05:00 Test Item Value Reference Range Interpretation Comments Eosinophils (test code = 2.6 See_Comment [A utomated message] The Eosinophils) system which ge nerated this result tra nsmitted reference range : <=4.0. The reference r arelis was not used to int erpret this result as normal/abnormal . [facility] CentralVfqxmvwTNLPLQDZDT2598-55-36 18:05:00 Test Item Value Reference Range Interpretation Comments Basophils (test code = 0.9 See_Comment [Aut omated message] The Basophils) system which ge nerated this result tra nsmitted reference range : <=1.0. The reference r arelis was not used to int erpret this result as normal/abnormal . [facility] CampusTelvbooKDWYMCHJZN2064-75-03 18:05:00 Test Item Value Reference Range Interpretation Comments Neutrophils # (test code = Neutrophils 5.2 1.5-8.1 #) [facility]XskytldMGOOJTOMTD6732-64-49 18:05:00 Test Item Value Reference Range Interpretation Comments Lymphocytes # (test code = Lymphocytes 2.2 1.0-5.5 #) [facility]borWvqwdgmBPKGLYZKUJ4033-26-69 18:05:00 Test Item Value Reference Range Interpretation Comments Monocytes # (test code 0.5 See_Comment [Aut omated message] The = Monocytes #) system which generated this result tra nsmitted reference range : <=0.8. The reference r arelis was not used to int erpret this result as normal/abnormal . [facility]borVtdokliGHKBJGQCEC3206-47-23 18:05:00 Test Item Value Reference Range Interpretation Comments Eosinophils # (test code 0.2 See_Comment [A utomated message] The = Eosinophils #) system whic h generated this result tra nsmitted reference range : <=0.5. The reference r arelis was not used to int erpret this result as normal/abnormal . [facility]borIyuovnfGPMJSQUQBW4570-80-44 18:05:00 Test Item Value Reference Range Interpretation Comments Basophils # (test code 0.1 See_Comment [Aut omated message] The = Basophils #) system which generated this result tra nsmitted reference range : <=0.2. The reference r arelis was not used to int erpret this result as normal/abnormal . [facility] CampusMhdfccjNIGCFBGJQA4268-47-17 18:[facility].3[facility] 18:05:00 Test Item Value Reference Range Interpretation Comments MCH (test code = MCH) 28.5 pg 27.0-31.0 [facility]JuacatwOODQVUEDBX0345-70-24 18:05:0032.3[facility] 18:05:00 Test Item Value Reference Range Interpretation Comments WBC (test code = WBC) 8.2 3.7-10.4 [facility] HospitalZedteqsQKYWBYWVSW6651-51-83 18:05:0014.9[facility] 18:05:00 Test Item Value Reference Range Interpretation Comments RBC (test code = RBC) 2.71 4.20-5.40 [facility] CentralOvfazmmAUYVIOPREK9935-58-21 18:05:00 Test Item Value Reference Range Interpretation Comments MCV (test code = MCV) 88.3 80.0-98.0 [facility] CentralYznjzjfHJRYSKAEXT1316-36-74 18:05:00 Test Item Value Reference Range Interpretation Comments MCH (test code = MCH) 28.5 pg 27.0-31.0 [facility] CentralWbzwxjhPMQTOBOMXT4707-36-66 18:05:00 Test Item Value Reference Range Interpretation Comments MCHC (test code = MCHC) 32.3 32.0-36.0 [facility] CentralGznydnvJPUBWJBFUS5653-02-60 18:05:00 Test Item Value Reference Range Interpretation Comments RDW (test code = RDW) 14.9 11.5-14.5 [facility] CentralXbwgvlnDVKUNQHHNV4597-86-02 18:05:00 Test Item Value Reference Range Interpretation Comments Platelet (test code = Platelet) 408 133-450 [facility] CentralAfgdhacDPQROAPOLR9240-70-39 18:05:00 Test Item Value Reference Range Interpretation Comments MPV (test code = MPV) 8.8 7.4-10.4 [facility] CentralZbshnbgRTLMEJRRXQ0497-32-18 18:05:00 Test Item Value Reference Range Interpretation Comments Segs (test code = Segs) 63.7 45.0-75.0 [facility] CentralXbaihrsBKXEUALUER8249-48-99 18:05:00 Test Item Value Reference Range Interpretation Comments Lymphocytes (test code = Lymphocytes) 26.6 20.0-40.0 [facility] CentralOzuucouKIYDUGXETX2666-81-26 18:05:00 Test Item Value Reference Range Interpretation Comments Monocytes (test code = Monocytes) 6.2 2.0-12.0 [facility] CentralFpsftndYBIOAHORGE4289-73-86 18:05:00 Test Item Value Reference Range Interpretation Comments Eosinophils (test code = 2.6 See_Comment [A utomated message] The Eosinophils) system which ge nerated this result tra nsmitted reference range : <=4.0. The reference r arelis was not used to int erpret this result as normal/abnormal . [facility] CentralAxzsiqnDMREQQNCGP7969-28-82 18:05:00 Test Item Value Reference Range Interpretation Comments Basophils (test code = 0.9 See_Comment [Aut omated message] The Basophils) system which ge nerated this result tra nsmitted reference range : <=1.0. The reference r arelis was not used to int erpret this result as normal/abnormal . [facility] CentralCofgsiiECTIEQTTMT8615-21-62 18:05:00 Test Item Value Reference Range Interpretation Comments Neutrophils # (test code = Neutrophils 5.2 1.5-8.1 #) [facility] CentralPobjljgYJNGVDHEBS5996-66-83 18:05:00 Test Item Value Reference Range Interpretation Comments Lymphocytes # (test code = Lymphocytes 2.2 1.0-5.5 #) [facility] CentralAkhqjvxQFYHHYOEQC8169-77-01 18:05:00 Test Item Value Reference Range Interpretation Comments Monocytes # (test code 0.5 See_Comment [Aut omated message] The = Monocytes #) system which generated this result tra nsmitted reference range : <=0.8. The reference r arelis was not used to int erpret this result as normal/abnormal . [facility] CentralQahprbqYFWHXEWUUJ8820-49-36 18:05:00 Test Item Value Reference Range Interpretation Comments Eosinophils # (test code 0.2 See_Comment [A utomated message] The = Eosinophils #) system whic h generated this result tra nsmitted reference range : <=0.5. The reference r arelis was not used to int erpret this result as normal/abnormal . [facility] CentralHxmoapwDWXNPTHHMD8666-12-82 18:05:00 Test Item Value Reference Range Interpretation Comments Basophils # (test code 0.1 See_Comment [Aut omated message] The = Basophils #) system which generated this result tra nsmitted reference range : <=0.2. The reference r arelis was not used to int erpret this result as normal/abnormal . [facility]borIgtfwxeCQCBWWEIMD4671-99-69 18:05:92129[facility]HE[facility] 2021-[facility]-10 18:05:008.8[facility] KsdbntuAKSUXMHHRR9366-11-11 18:05:0063.7[facility] FiphucmAGJESHUASY7901-90-21 18:05:0026.6[facility] GswpnhyBOGNVDTEMF0022-06-60 18:05:00 Test Item Value Reference Range Interpretation Comments WBC (test code = WBC) 8.2 3.7-10.4 [facility] CentralYarrpxwXWOWUQFQQR8365-71-81 18:05:00 Test Item Value Reference Range Interpretation Comments RBC (test code = RBC) 2.71 4.20-5.40 [facility] CentralUbxmiixKPIPWTTLCR4711-26-48 18:05:00 Test Item Value Reference Range Interpretation Comments MCV (test code = MCV) 88.3 80.0-98.0 [facility] CentralHjfpcswLBAFSRDALQ4988-78-69 18:05:00 Test Item Value Reference Range Interpretation Comments MCH (test code = MCH) 28.5 pg 27.0-31.0 [facility] CentralJmejbpuBOTZPVYVJK4226-18-67 18:05:00 Test Item Value Reference Range Interpretation Comments MCHC (test code = MCHC) 32.3 32.0-36.0 [facility] CentralUxnmbaiPATRLGXZKO5075-78-70 18:05:00 Test Item Value Reference Range Interpretation Comments RDW (test code = RDW) 14.9 11.5-14.5 [facility] CentralQpzlralJQVAQUTCTW5115-39-62 18:05:00 Test Item Value Reference Range Interpretation Comments Platelet (test code = Platelet) 408 133-450 [facility] CentralGufjeekKZKGJPYIXZ9412-37-79 18:05:00 Test Item Value Reference Range Interpretation Comments MPV (test code = MPV) 8.8 7.4-10.4 [facility] CentralEcthbvwPDCWSCXTBS6559-25-13 18:05:00 Test Item Value Reference Range Interpretation Comments Segs (test code = Segs) 63.7 45.0-75.0 [facility] CentralMcftsyqSASBTVFBUS1545-43-85 18:05:00 Test Item Value Reference Range Interpretation Comments Lymphocytes (test code = Lymphocytes) 26.6 20.0-40.0 [facility] CentralVhrcnmhRAPCZPQCYK6687-38-21 18:05:00 Test Item Value Reference Range Interpretation Comments Monocytes (test code = Monocytes) 6.2 2.0-12.0 [place] 139731-08-20 18:05:00 Test Item Value Reference Range Interpretation Comments Eosinophils (test code = 2.6 See_Comment [A utomated message] The Eosinophils) system which ge nerated this result tra nsmitted reference range : <=4.0. The reference r arelis was not used to int erpret this result as normal/abnormal . [facility] CentralHizqtakLCXVSWCYSR6031-03-36 18:05:00 Test Item Value Reference Range Interpretation Comments Basophils (test code = 0.9 See_Comment [Aut omated message] The Basophils) system which ge nerated this result tra nsmitted reference range : <=1.0. The reference r arelis was not used to int erpret this result as normal/abnormal . [facility] CentralCzyszzfHQIOOMLHOU1587-27-65 18:05:00 Test Item Value Reference Range Interpretation Comments Neutrophils # (test code = Neutrophils 5.2 1.5-8.1 #) [facility] CentralBfceuxmZJJHZMGOKN2472-58-85 18:05:00 Test Item Value Reference Range Interpretation Comments Lymphocytes # (test code = Lymphocytes 2.2 1.0-5.5 #) [facility] CentralMrmbonoSBGFNREHQZ4937-13-07 18:05:00 Test Item Value Reference Range Interpretation Comments Monocytes # (test code 0.5 See_Comment [Aut omated message] The = Monocytes #) system which generated this result tra nsmitted reference range : <=0.8. The reference r arelis was not used to int erpret this result as normal/abnormal . [facility] CentralPsunxlrIITYTBQIKV9730-48-67 18:05:00 Test Item Value Reference Range Interpretation Comments Eosinophils # (test code 0.2 See_Comment [A utomated message] The = Eosinophils #) system whic h generated this result tra nsmitted reference range : <=0.5. The reference r arelis was not used to int erpret this result as normal/abnormal . [facility] CentralBfeqceiDCFFAZRTUK8130-53-88 18:05:00 Test Item Value Reference Range Interpretation Comments Basophils # (test code 0.1 See_Comment [Aut omated message] The = Basophils #) system which generated this result tra nsmitted reference range : <=0.2. The reference r arelis was not used to int erpret this result as normal/abnormal . [facility]borMqksibxPNGQAKBUXH0562-14-74 18:05:006.2[facility] 2021-[facility] 18:05:002.6[facility] ZkafxrgHINMOHVHLB7392-76-35 18:05:000.9[facility] BdxiympQWWUXYTIEK9868-04-59 18:05:005.2[facility] TjluidmMRZKVJURPI8237-29-91 18:05:00 Test Item Value Reference Range Interpretation Comments WBC (test code = WBC) 8.2 3.7-10.4 [facility] CentralQujcelrIXORQFHWUL8065-01-43 18:05:00 Test Item Value Reference Range Interpretation Comments RBC (test code = RBC) 2.71 4.20-5.40 [facility] CentralDehgnrlWYRWCZAAEY0458-89-06 18:05:00 Test Item Value Reference Range Interpretation Comments MCV (test code = MCV) 88.3 80.0-98.0 [facility] CentralSlfjukcBNMSDOZNRU7021-58-17 18:05:00 Test Item Value Reference Range Interpretation Comments MCH (test code = MCH) 28.5 pg 27.0-31.0 [facility] CentralDjbzyhkOBLHULFVUD5995-50-84 18:05:00 Test Item Value Reference Range Interpretation Comments MCHC (test code = MCHC) 32.3 32.0-36.0 [facility] CentralDfkbrfmWFDMYJJTTI7704-26-67 18:05:00 Test Item Value Reference Range Interpretation Comments RDW (test code = RDW) 14.9 11.5-14.5 [facility] CentralVkmdrjtRDBQMSFGAP1854-47-04 18:05:00 Test Item Value Reference Range Interpretation Comments Platelet (test code = Platelet) 408 133-450 [facility] CentralWbziaovFRCPXDYLRK2097-16-47 18:05:00 Test Item Value Reference Range Interpretation Comments MPV (test code = MPV) 8.8 7.4-10.4 [facility] CentralFdhhnhtXRZYFHBNMY1336-59-10 18:05:00 Test Item Value Reference Range Interpretation Comments Segs (test code = Segs) 63.7 45.0-75.0 [facility] CentralAzqbineUWDLXQLCWT9412-29-80 18:05:00 Test Item Value Reference Range Interpretation Comments Lymphocytes (test code = Lymphocytes) 26.6 20.0-40.0 [facility] CentralGiixlbnZAVVTMPHLC7464-68-99 18:05:00 Test Item Value Reference Range Interpretation Comments Monocytes (test code = Monocytes) 6.2 2.0-12.0 [facility] CentralHrusxstRNSEBYECRI4331-26-53 18:05:00 Test Item Value Reference Range Interpretation Comments Eosinophils (test code = 2.6 See_Comment [A utomated message] The Eosinophils) system which ge nerated this result tra nsmitted reference range : <=4.0. The reference r arelis was not used to int erpret this result as normal/abnormal . [facility] CentralWuqlhlySPGXJSETKW2872-55-60 18:05:00 Test Item Value Reference Range Interpretation Comments Basophils (test code = 0.9 See_Comment [Aut omated message] The Basophils) system which ge nerated this result tra nsmitted reference range : <=1.0. The reference r arelis was not used to int erpret this result as normal/abnormal . [facility] CentralDpisptwTSUDYTACEE2060-45-61 18:05:00 Test Item Value Reference Range Interpretation Comments Neutrophils # (test code = Neutrophils 5.2 1.5-8.1 #) [facility] CentralUblvnspMWBJWVTXXJ4696-28-67 18:05:00 Test Item Value Reference Range Interpretation Comments Lymphocytes # (test code = Lymphocytes 2.2 1.0-5.5 #) [facility] CentralLhhblciDTCIVNDMFD5770-29-20 18:05:00 Test Item Value Reference Range Interpretation Comments Monocytes # (test code 0.5 See_Comment [Aut omated message] The = Monocytes #) system which generated this result tra nsmitted reference range : <=0.8. The reference r arelis was not used to int erpret this result as normal/abnormal . [facility] CentralQmeftjiDHNZCWGFAZ2660-75-65 18:05:00 Test Item Value Reference Range Interpretation Comments Eosinophils # (test code 0.2 See_Comment [A utomated message] The = Eosinophils #) system whic h generated this result tra nsmitted reference range : <=0.5. The reference r arelis was not used to int erpret this result as normal/abnormal . [facility] CentralVvojafpXXCBOIWWOC7182-05-60 18:05:00 Test Item Value Reference Range Interpretation Comments Basophils # (test code 0.1 See_Comment [Aut omated message] The = Basophils #) system which generated this result tra nsmitted reference range : <=0.2. The reference r arelis was not used to int erpret this result as normal/abnormal . [facility] CentralLmrjxmuMUXEKUMAKO5419-26-75 18:05:[facility].2[facility] 18:05:00 Test Item Value Reference Range Interpretation Comments WBC (test code = WBC) 8.2 3.7-10.4 [facility] CentralRlprppvKDNWDPJNVQ0475-08-01 18:05:00 Test Item Value Reference Range Interpretation Comments RBC (test code = RBC) 2.71 4.20-5.40 [facility] CentralRxdsfarDUSFNJYGKL0171-93-38 18:05:00 Test Item Value Reference Range Interpretation Comments MCV (test code = MCV) 88.3 80.0-98.0 [facility] CentralWspniolSGJQEUALFG4336-96-56 18:05:00 Test Item Value Reference Range Interpretation Comments MCH (test code = MCH) 28.5 pg 27.0-31.0 [facility] CentralJnndhwcIBVJRFHYGN5468-78-98 18:05:00 Test Item Value Reference Range Interpretation Comments MCHC (test code = MCHC) 32.3 32.0-36.0 [facility] CentralRumkdrfWZZBVAMIBY1518-12-35 18:05:00 Test Item Value Reference Range Interpretation Comments RDW (test code = RDW) 14.9 11.5-14.5 [facility] CentralXbjygoyCYAWRPXPML8031-59-95 18:05:000.5[facility] 2021-02-10 18:05:00 Test Item Value Reference Range Interpretation Comments Platelet (test code = Platelet) 408 133-450 [facility] CentralDjtvcriVYGNUPWNZJ7682-58-95 18:05:00 Test Item Value Reference Range Interpretation Comments MPV (test code = MPV) 8.8 7.4-10.4 [facility] CentralLxooejoQLBAYLQGKN9106-22-58 18:05:00 Test Item Value Reference Range Interpretation Comments Segs (test code = Segs) 63.7 45.0-75.0 [facility] CentralMashiymBRTAVDOQTJ6211-39-23 18:05:00 Test Item Value Reference Range Interpretation Comments Lymphocytes (test code = Lymphocytes) 26.6 20.0-40.0 [facility] CentralHmmeyqpNQROCHJRNR7115-30-56 18:05:00 Test Item Value Reference Range Interpretation Comments Monocytes (test code = Monocytes) 6.2 2.0-12.0 [facility] CentralKscdelkDIGMNTQNHM0912-38-36 18:05:00 Test Item Value Reference Range Interpretation Comments Eosinophils (test code = 2.6 See_Comment [A utomated message] The Eosinophils) system which ge nerated this result tra nsmitted reference range : <=4.0. The reference r arelis was not used to int erpret this result as normal/abnormal . [facility] CentralWghhasxXLYTMGQBAB0541-30-48 18:05:00 Test Item Value Reference Range Interpretation Comments Basophils (test code = 0.9 See_Comment [Aut omated message] The Basophils) system which ge nerated this result tra nsmitted reference range : <=1.0. The reference r arelis was not used to int erpret this result as normal/abnormal . [facility] CentralIhiqjgaJAXKWIDCKR6388-81-80 18:05:00 Test Item Value Reference Range Interpretation Comments Neutrophils # (test code = Neutrophils 5.2 1.5-8.1 #) [facility] CentralPgbvujzZKCEKZRCID3448-74-54 18:05:00 Test Item Value Reference Range Interpretation Comments Lymphocytes # (test code = Lymphocytes 2.2 1.0-5.5 #) [facility] CentralUajdzrpCJTOPHNBVO6864-90-58 18:05:00 Test Item Value Reference Range Interpretation Comments Monocytes # (test code 0.5 See_Comment [Aut omated message] The = Monocytes #) system which generated this result tra nsmitted reference range : <=0.8. The reference r arelis was not used to int erpret this result as normal/abnormal . [facility] CentralScgogupBGWNXMRNVB8303-38-58 [facility] 18:05:00 Test Item Value Reference Range Interpretation Comments Eosinophils # (test code 0.2 See_Comment [A utomated message] The = Eosinophils #) system whic h generated this result tra nsmitted reference range : <=0.5. The reference r arelis was not used to int erpret this result as normal/abnormal . [facility] CentralTzueeohDDVNEAPFXU9257-85-12 18:05:00 Test Item Value Reference Range Interpretation Comments Basophils # (test code 0.1 See_Comment [Aut omated message] The = Basophils #) system which generated this result tra nsmitted reference range : <=0.2. The reference r arelis was not used to int erpret this result as normal/abnormal . [facility] CentralCgesmmrOCZDUVJKQY2236-20-37 18:05:[facility] 2021-02-10 18:05:00 Test Item Value Reference Range Interpretation Comments WBC (test code = WBC) 8.2 3.7-10.4 [facility] CentralJpfhlsjQAOQMOLFCD2099-97-52 18:05:00 Test Item Value Reference Range Interpretation Comments RBC (test code = RBC) 2.71 4.20-5.40 [facility] CentralKrgvdooSSHTNMLTXM5958-41-14 18:05:00 Test Item Value Reference Range Interpretation Comments MCV (test code = MCV) 88.3 80.0-98.0 [place] 139731-08-20 18:05:00 Test Item Value Reference Range Interpretation Comments MCH (test code = MCH) 28.5 pg 27.0-31.0 [facility] CentralLaoyazhKXWDQQOZVW8263-76-77 18:05:00 Test Item Value Reference Range Interpretation Comments MCHC (test code = MCHC) 32.3 32.0-36.0 [facility] CentralAgyajudAGWTSQOOWK6416-41-02 18:05:00 Test Item Value Reference Range Interpretation Comments RDW (test code = RDW) 14.9 11.5-14.5 [facility] CentralWmhkplqFPXKGQRLRC9028-79-99 18:05:00 Test Item Value Reference Range Interpretation Comments Platelet (test code = Platelet) 408 133-450 [facility] CentralPxdyawuOJOLHZDCHH1587-07-59 18:05:00 Test Item Value Reference Range Interpretation Comments MPV (test code = MPV) 8.8 7.4-10.4 [facility] CentralJhokxsgSNFRNBGLUT9269-44-27 18:05:00 Test Item Value Reference Range Interpretation Comments Segs (test code = Segs) 63.7 45.0-75.0 [facility] CentralZjpijfiCWGFNGDQMY2734-32-05 18:05:00 Test Item Value Reference Range Interpretation Comments Lymphocytes (test code = Lymphocytes) 26.6 20.0-40.0 [facility] CentralLmewcbpCYBPGUBWYB2813-69-33 18:05:00 Test Item Value Reference Range Interpretation Comments Monocytes (test code = Monocytes) 6.2 2.0-12.0 [facility] CentralSzecdrqQYTDJLUWEM3569-23-72 18:05:00 Test Item Value Reference Range Interpretation Comments Eosinophils (test code = 2.6 See_Comment [A utomated message] The Eosinophils) system which ge nerated this result tra nsmitted reference range : <=4.0. The reference r arelis was not used to int erpret this result as normal/abnormal . [facility] CentralZuxpwetPIBYMBRHAQ2553-72-45 18:05:00 Test Item Value Reference Range Interpretation Comments Basophils (test code = 0.9 See_Comment [Aut omated message] The Basophils) system which ge nerated this result tra nsmitted reference range : <=1.0. The reference r arelis was not used to int erpret this result as normal/abnormal . [facility] CentralRfenrydFKNEBBZPWD5808-51-95 18:05:00 Test Item Value Reference Range Interpretation Comments Neutrophils # (test code = Neutrophils 5.2 1.5-8.1 #) [facility] CentralJlkigijSRGGTDAYIV9331-56-13 18:05:00 Test Item Value Reference Range Interpretation Comments Lymphocytes # (test code = Lymphocytes 2.2 1.0-5.5 #) [facility] CentralLjtjxevUYWILTAKTO7458-33-29 18:05:00 Test Item Value Reference Range Interpretation Comments Monocytes # (test code 0.5 See_Comment [Aut omated message] The = Monocytes #) system which generated this result tra nsmitted reference range : <=0.8. The reference r arelis was not used to int erpret this result as normal/abnormal . [facility] CentralKuvwqzqDUMETSTSHQ5242-18-75 18:05:00 Test Item Value Reference Range Interpretation Comments Eosinophils # (test code 0.2 See_Comment [A utomated message] The = Eosinophils #) system whic h generated this result tra nsmitted reference range : <=0.5. The reference r arelis was not used to int erpret this result as normal/abnormal . [facility] CentralImqhjubNLXAISIAVC0736-41-69 18:05:00 Test Item Value Reference Range Interpretation Comments Basophils # (test code 0.1 See_Comment [Aut omated message] The = Basophils #) system which generated this result tra nsmitted reference range : <=0.2. The reference r arelis was not used to int erpret this result as normal/abnormal . [facility] [id number] 09:15:00 Test Item Value Reference Range Interpretation Comments ABO/Rh (test code = ABO/Rh) A POS [facility] [id number] 09:15:00 Test Item Value Reference Range Interpretation Comments Antibody Scrn (test Negative (02/10/21 4:15 code = Antibody Scrn) AM) [facility] CampusStyleFeeder [id number] 09:15:00 Test Item Value Reference Range Interpretation Comments Glucose Lvl (test code = Glucose Lvl) 105 70-99 [place] [address]-08-20 09:15:00 Test Item Value Reference Range Interpretation Comments BUN (test code = BUN) 10 7-22 [place] [address]-08-20 09:15:00 Test Item Value Reference Range Interpretation Comments Creatinine Lvl (test code = Creatinine 0.61 0.50-1.40 Lvl) [place] [address]-08-20 09:15:00 Test Item Value Reference Range Interpretation Comments Sodium Lvl (test code = Sodium Lvl) 143 135-145 [place] [address]-08-20 09:15:00 Test Item Value Reference Range Interpretation Comments Potassium Lvl (test code = Potassium 3.5 3.5-5.1 Lvl) [address]08-20 09:15:00 Test Item Value Reference Range Interpretation Comments Chloride Lvl (test code = Chloride Lvl) 116 95-109 [place] 853501-08-20 09:15:00 Test Item Value Reference Range Interpretation Comments CO2 (test code = CO2) 25 24-32 [place] 853501-08-20 09:15:00 Test Item Value Reference Range Interpretation Comments Calcium Lvl (test code = Calcium Lvl) 8.6 8.5-10.5 [place] [address]-08-20 09:15:00 Test Item Value Reference Range Interpretation Comments Total Protein (test code = Total 5.5 6.4-8.4 Protein) [place] 853501-08-20 09:15:00 Test Item Value Reference Range Interpretation Comments Albumin Lvl (test code = Albumin Lvl) 2.6 3.5-5.0 [place] [address]-08-20 09:15:00 Test Item Value Reference Range Interpretation Comments ALT (test code = ALT) 10 See_Comment [Auto mated message] The system which ge nerated this result transmit sarah reference range : <=65. The reference range was not used to interpr et this result as felicitas l/abnormal. [address]08-20 09:15:00 Test Item Value Reference Range Interpretation Comments AST (test code = AST) 5 See_Comment [Auto mated message] The system which ge nerated this result transmit sarah reference range : <=37. The reference range was not used to interpr et this result as felicitas l/abnormal. [facility] [employer]2021-08-20 09:15:00 Test Item Value Reference Range Interpretation Comments Alk Phos (test code = Alk Phos) 68 39-136 [facility] [employer] [id number] 09:15:00 Test Item Value Reference Range Interpretation Comments Bili Total (test code = Bili Total) 0.2 0.2-1.3 [facility] [employer] [id number] 09:15:00 Test Item Value Reference Range Interpretation Comments AGAP (test code = AGAP) 5.5 10.0-20.0 [facility] [employer] [id number] 09:15:00 Test Item Value Reference Range Interpretation Comments B/C Ratio (test code = B/C Ratio) 16 1 6-25 [facility] [employer] [id number] 09:15:00 Test Item Value Reference Range Interpretation Comments Globulin (test code = Globulin) 2.9 2.7-4.2 [facility] [employer] [id number] 09:15:00 Test Item Value Reference Range Interpretation Comments A/G Ratio (test code = A/G Ratio) 0.9 1 0.7-1.6 [facility]2021-08-20 09:15:00 Test Item Value Reference Range Interpretation Comments eGFR (test code = eGFR) 94 [facility] [employer] [id number] 09:15:000.61[address] [email or web address] PANEL 2021-02-10 09:15:[email or web address] [id number] 09:15:003.5MeBusy StreetriExpoPromoter2021-08-20 09:15:40218[employer]jxkcuzp[employer] RESULTS 2021-02-10 09:15:00 Test Item Value Reference Range Interpretation Comments ABO/Rh (test code = ABO/Rh) A POS [facility] [employer] [id number] 09:15:00 Test Item Value Reference Range Interpretation Comments Antibody Scrn (test Negative (02/10/21 4:15 code = Antibody Scrn) AM) [facility] [employer] [id number] 09:15:00 Test Item Value Reference Range Interpretation Comments Glucose Lvl (test code = Glucose Lvl) 105 70-99 [place] [address]-08-20 09:15:00 Test Item Value Reference Range Interpretation Comments BUN (test code = BUN) 10 7-22 [place] [address]-08-20 09:15:00 Test Item Value Reference Range Interpretation Comments Creatinine Lvl (test code = Creatinine 0.61 0.50-1.40 Lvl) [place] [address]-08-20 09:15:00 Test Item Value Reference Range Interpretation Comments Sodium Lvl (test code = Sodium Lvl) 143 135-145 [place] [address]-08-20 09:15:00 Test Item Value Reference Range Interpretation Comments Potassium Lvl (test code = Potassium 3.5 3.5-5.1 Lvl) [address]08-20 09:15:00 Test Item Value Reference Range Interpretation Comments Chloride Lvl (test code = Chloride Lvl) 116 95-109 [place] 853501-08-20 09:15:00 Test Item Value Reference Range Interpretation Comments CO2 (test code = CO2) 25 24-32 [place] [address]-08-20 09:15:00 Test Item Value Reference Range Interpretation Comments Calcium Lvl (test code = Calcium Lvl) 8.6 8.5-10.5 [place] [address]-08-20 09:15:00 Test Item Value Reference Range Interpretation Comments Total Protein (test code = Total 5.5 6.4-8.4 Protein) [place] 853501-08-20 09:15:00 Test Item Value Reference Range Interpretation Comments Albumin Lvl (test code = Albumin Lvl) 2.6 3.5-5.0 [place] 853501-08-20 09:15:00 Test Item Value Reference Range Interpretation Comments ALT (test code = ALT) 10 See_Comment [Auto mated message] The system which ge nerated this result transmit sarah reference range : <=65. The reference range was not used to interpr et this result as felicitas l/abnormal. [place] [address]-08-20 09:15:00 Test Item Value Reference Range Interpretation Comments AST (test code = AST) 5 See_Comment [Auto mated message] The system which ge nerated this result transmit sarah reference range : <=37. The reference range was not used to interpr et this result as felicitas l/abnormal. [facility] [employer]CHEM [id number] 09:15:00 Test Item Value Reference Range Interpretation Comments Alk Phos (test code = Alk Phos) 68 39-136 [facility] [id number] 09:15:00 Test Item Value Reference Range Interpretation Comments Bili Total (test code = Bili Total) 0.2 0.2-1.3 [facility] [id number] 09:15:00 Test Item Value Reference Range Interpretation Comments AGAP (test code = AGAP) 5.5 10.0-20.0 [facility] [id number] 09:15:00 Test Item Value Reference Range Interpretation Comments B/C Ratio (test code = B/C Ratio) 16 1 6-25 [facility] [id number] 09:15:00 Test Item Value Reference Range Interpretation Comments Globulin (test code = Globulin) 2.9 2.7-4.2 [facility] [id number] 09:15:00 Test Item Value Reference Range Interpretation Comments A/G Ratio (test code = A/G Ratio) 0.9 1 0.7-1.6 [facility] [id number] 09:15:00 Test Item Value Reference Range Interpretation Comments eGFR (test code = eGFR) 94 [facility] [id number] [facility]0025[facility] 2021-[facility]-10 09:15:008.6[facility]annCHE[facility] [id number] 09:15:005.5[facility]ann[facility] [id number] 09:15:002.6[facility]ann[facility] [id number] 09:15:0010[facility]ann[facility] [id number] 09:15:005[facility] [id number] 09:15:0068[facility] [id number] 09:15:000.2 [facility] [employer] [id number] 09:15:005.5[facility] PANEL 2021-02-10 09:15:00 Test Item Value Reference Range Interpretation Comments B/C Ratio (test code = B/C Ratio) 16 1 6-25 [facility] [employer] [id number] 09:15:002.9[facility] [employer] PANEL 2021-02-10 09:15:00 Test Item Value Reference Range Interpretation Comments A/G Ratio (test code = A/G Ratio) 0.9 1 0.7-1.6 [facility] [employer] [id number] 09:15:0094[facility] BANK [id number] 09:15:00 Test Item Value Reference Range Interpretation Comments ABO/Rh (test code = ABO/Rh) A POS [facility] [employer] [id number] 09:15:00 Test Item Value Reference Range Interpretation Comments Antibody Scrn (test Negative (02/10/21 4:15 code = Antibody Scrn) AM) [facility] [employer] [id number] 09:15:00 Test Item Value Reference Range Interpretation Comments Glucose Lvl (test code = Glucose Lvl) 105 70-99 [facility] [employer] [id number] 09:15:00 Test Item Value Reference Range Interpretation Comments BUN (test code = BUN) 10 7-22 [facility] [employer] [id number] 09:15:00 Test Item Value Reference Range Interpretation Comments Creatinine Lvl (test code = Creatinine 0.61 0.50-1.40 Lvl) [facility] [employer] [id number] 09:15:00 Test Item Value Reference Range Interpretation Comments Sodium Lvl (test code = Sodium Lvl) 143 135-145 [facility] [employer] [id number] 09:15:00 Test Item Value Reference Range Interpretation Comments Potassium Lvl (test code = Potassium 3.5 3.5-5.1 Lvl) [facility] [place]2021-08-20 09:15:00 Test Item Value Reference Range Interpretation Comments Chloride Lvl (test code = Chloride Lvl) 116 95-109 [facility] [employer] [id number] 09:15:00 Test Item Value Reference Range Interpretation Comments CO2 (test code = CO2) 25 24-32 [employer] [id number] 09:15:00 Test Item Value Reference Range Interpretation Comments Calcium Lvl (test code = Calcium Lvl) 8.6 8.5-10.5 [facility] [id number] 09:15:00 Test Item Value Reference Range Interpretation Comments Total Protein (test code = Total 5.5 6.4-8.4 Protein) [place] 853501-08-20 09:15:00 Test Item Value Reference Range Interpretation Comments Albumin Lvl (test code = Albumin Lvl) 2.6 3.5-5.0 [facility] [id number] 09:15:00 Test Item Value Reference Range Interpretation Comments ALT (test code = ALT) 10 See_Comment [Auto mated message] The system which ge nerated this result transmit sarah reference range : <=65. The reference range was not used to interpr et this result as felicitas l/abnormal. [facility] [id number] 09:15:00 Test Item Value Reference Range Interpretation Comments AST (test code = AST) 5 See_Comment [Auto mated message] The system which ge nerated this result transmit sarah reference range : <=37. The reference range was not used to interpr et this result as felicitas l/abnormal. [facility] [id number] 09:15:00 Test Item Value Reference Range Interpretation Comments Alk Phos (test code = Alk Phos) 68 39-136 [facility] [id number] 09:15:00 Test Item Value Reference Range Interpretation Comments Bili Total (test code = Bili Total) 0.2 0.2-1.3 [facility] [id number] 09:15:00 Test Item Value Reference Range Interpretation Comments AGAP (test code = AGAP) 5.5 10.0-20.0 [facility] [id number] 09:15:00 Test Item Value Reference Range Interpretation Comments B/C Ratio (test code = B/C Ratio) 16 1 6-25 [facility] [id number] 09:15:00 Test Item Value Reference Range Interpretation Comments Globulin (test code = Globulin) 2.9 2.7-4.2 [facility] [id number] 09:15:00 Test Item Value Reference Range Interpretation Comments A/G Ratio (test code = A/G Ratio) 0.9 1 0.7-1.6 [facility] [id number] 09:15:00 Test Item Value Reference Range Interpretation Comments eGFR (test code = eGFR) 94 [facility] [employer] [id number] 09:15:00 Test Item Value Reference Range Interpretation Comments ABO/Rh (test code = ABO/Rh) A POS [facility] [employer] [id number] 09:15:00 Test Item Value Reference Range Interpretation Comments Antibody Scrn (test Negative (02/10/21 4:15 code = Antibody Scrn) AM) [facility] [employer] [id number] 09:15:00 Test Item Value Reference Range Interpretation Comments Glucose Lvl (test code = Glucose Lvl) 105 70-99 [facility] [employer]2021-08-20 09:15:00 Test Item Value Reference Range Interpretation Comments BUN (test code = BUN) 10 7-22 [facility] [employer] [id number] 09:15:00 Test Item Value Reference Range Interpretation Comments Creatinine Lvl (test code = Creatinine 0.61 0.50-1.40 Lvl) [facility] [employer]2021-08-20 09:15:00 Test Item Value Reference Range Interpretation Comments Sodium Lvl (test code = Sodium Lvl) 143 135-145 [facility] [employer]2021-08-20 09:15:00 Test Item Value Reference Range Interpretation Comments Potassium Lvl (test code = Potassium 3.5 3.5-5.1 Lvl) [facility]2021-08-20 09:15:00 Test Item Value Reference Range Interpretation Comments Chloride Lvl (test code = Chloride Lvl) 116 95-109 [facility] [employer] [id number] 09:15:00 Test Item Value Reference Range Interpretation Comments CO2 (test code = CO2) 25 24-32 [facility] [employer] [id number] 09:15:00 Test Item Value Reference Range Interpretation Comments Calcium Lvl (test code = Calcium Lvl) 8.6 8.5-10.5 [facility] [employer] [id number] 09:15:00 Test Item Value Reference Range Interpretation Comments Total Protein (test code = Total 5.5 6.4-8.4 Protein) [facility] [employer] [id number] 09:15:00 Test Item Value Reference Range Interpretation Comments Albumin Lvl (test code = Albumin Lvl) 2.6 3.5-5.0 [employer]2021-08-20 09:15:00 Test Item Value Reference Range Interpretation Comments ALT (test code = ALT) 10 See_Comment [Auto mated message] The system which ge nerated this result transmit sarah reference range : <=65. The reference range was not used to interpr et this result as felicitas l/abnormal. [employer]2021-08-20 09:15:00 Test Item Value Reference Range Interpretation Comments AST (test code = AST) 5 See_Comment [Auto mated message] The system which ge nerated this result transmit sarah reference range : <=37. The reference range was not used to interpr et this result as felicitas l/abnormal. [facility]2021-08-20 09:15:00 Test Item Value Reference Range Interpretation Comments Alk Phos (test code = Alk Phos) 68 39-136 [facility] [employer]2021-08-20 09:15:00 Test Item Value Reference Range Interpretation Comments Bili Total (test code = Bili Total) 0.2 0.2-1.3 [facility]2021-08-20 09:15:00 Test Item Value Reference Range Interpretation Comments AGAP (test code = AGAP) 5.5 10.0-20.0 [facility]2021-08-20 09:15:00 Test Item Value Reference Range Interpretation Comments B/C Ratio (test code = B/C Ratio) 16 1 6-25 [place]-08-20 09:15:00 Test Item Value Reference Range Interpretation Comments Globulin (test code = Globulin) 2.9 2.7-4.2 [facility]2021-08-20 09:15:00 Test Item Value Reference Range Interpretation Comments A/G Ratio (test code = A/G Ratio) 0.9 1 0.7-1.6 [facility]2021-08-20 09:15:00 Test Item Value Reference Range Interpretation Comments eGFR (test code = eGFR) 94 [facility] [place] [id number] 09:15:00 Test Item Value Reference Range Interpretation Comments ABO/Rh (test code = ABO/Rh) A POS [facility] [id number] 09:15:00 Test Item Value Reference Range Interpretation Comments Antibody Scrn (test Negative (02/10/21 4:15 code = Antibody Scrn) AM) [place] 853501-08-20 09:15:00 Test Item Value Reference Range Interpretation Comments Glucose Lvl (test code = Glucose Lvl) 105 70-99 [place] 853501-08-20 09:15:00 Test Item Value Reference Range Interpretation Comments BUN (test code = BUN) 10 7-22 [place] 853501-08-20 09:15:00 Test Item Value Reference Range Interpretation Comments Creatinine Lvl (test code = Creatinine 0.61 0.50-1.40 Lvl) [place] 853501-08-20 09:15:00 Test Item Value Reference Range Interpretation Comments Sodium Lvl (test code = Sodium Lvl) 143 135-145 [place] 853501-08-20 09:15:00 Test Item Value Reference Range Interpretation Comments Potassium Lvl (test code = Potassium 3.5 3.5-5.1 Lvl) [place] 853501-08-20 09:15:00 Test Item Value Reference Range Interpretation Comments Chloride Lvl (test code = Chloride Lvl) 116 95-109 [place] 853501-08-20 09:15:00 Test Item Value Reference Range Interpretation Comments CO2 (test code = CO2) 25 24-32 [place] 853501-08-20 09:15:00 Test Item Value Reference Range Interpretation Comments Calcium Lvl (test code = Calcium Lvl) 8.6 8.5-10.5 [place] 853501-08-20 09:15:00 Test Item Value Reference Range Interpretation Comments Total Protein (test code = Total 5.5 6.4-8.4 Protein) [place] 853501-08-20 09:15:00 Test Item Value Reference Range Interpretation Comments Albumin Lvl (test code = Albumin Lvl) 2.6 3.5-5.0 [place] 853501-08-20 09:15:00 Test Item Value Reference Range Interpretation Comments ALT (test code = ALT) 10 See_Comment [Auto mated message] The system which ge nerated this result transmit sarah reference range : <=65. The reference range was not used to interpr et this result as felicitas l/abnormal. [facility]2021-08-20 09:15:00 Test Item Value Reference Range Interpretation Comments AST (test code = AST) 5 See_Comment [Auto mated message] The system which ge nerated this result transmit sarah reference range : <=37. The reference range was not used to interpr et this result as felicitas l/abnormal. [employer] [id number] 09:15:00 Test Item Value Reference Range Interpretation Comments Alk Phos (test code = Alk Phos) 68 39-136 [facility] [employer] [id number] 09:15:00 Test Item Value Reference Range Interpretation Comments Bili Total (test code = Bili Total) 0.2 0.2-1.3 [facility] [employer] [id number] 09:15:00 Test Item Value Reference Range Interpretation Comments AGAP (test code = AGAP) 5.5 10.0-20.0 [employer] [id number] 09:15:00 Test Item Value Reference Range Interpretation Comments B/C Ratio (test code = B/C Ratio) 16 1 6-25 [facility] [employer]2021-08-20 09:15:00 Test Item Value Reference Range Interpretation Comments Globulin (test code = Globulin) 2.9 2.7-4.2 [facility]2021-08-20 09:15:00 Test Item Value Reference Range Interpretation Comments A/G Ratio (test code = A/G Ratio) 0.9 1 0.7-1.6 [facility]2021-08-20 09:15:00 Test Item Value Reference Range Interpretation Comments eGFR (test code = eGFR) 94 [facility] [employer] [id number] 09:15:00 Test Item Value Reference Range Interpretation Comments ABO/Rh (test code = ABO/Rh) A POS [facility] [employer] [id number] 09:15:00 Test Item Value Reference Range Interpretation Comments Antibody Scrn (test Negative (02/10/21 4:15 code = Antibody Scrn) AM) [facility] [employer] [id number] 09:15:00 Test Item Value Reference Range Interpretation Comments Glucose Lvl (test code = Glucose Lvl) 105 70-99 [facility]2021-08-20 09:15:00 Test Item Value Reference Range Interpretation Comments BUN (test code = BUN) 10 7-22 [place] 853501-08-20 09:15:00 Test Item Value Reference Range Interpretation Comments Creatinine Lvl (test code = Creatinine 0.61 0.50-1.40 Lvl) [place] 853501-08-20 09:15:00 Test Item Value Reference Range Interpretation Comments Sodium Lvl (test code = Sodium Lvl) 143 135-145 [place] 853501-08-20 09:15:00 Test Item Value Reference Range Interpretation Comments Potassium Lvl (test code = Potassium 3.5 3.5-5.1 Lvl) [place] 853501-08-20 09:15:00 Test Item Value Reference Range Interpretation Comments Chloride Lvl (test code = Chloride Lvl) 116 95-109 [place] 853501-08-20 09:15:00 Test Item Value Reference Range Interpretation Comments CO2 (test code = CO2) 25 24-32 [place] 853501-08-20 09:15:00 Test Item Value Reference Range Interpretation Comments Calcium Lvl (test code = Calcium Lvl) 8.6 8.5-10.5 [place] 853501-08-20 09:15:00 Test Item Value Reference Range Interpretation Comments Total Protein (test code = Total 5.5 6.4-8.4 Protein) [place] 853501-08-20 09:15:00 Test Item Value Reference Range Interpretation Comments Albumin Lvl (test code = Albumin Lvl) 2.6 3.5-5.0 [place] 853501-08-20 09:15:00 Test Item Value Reference Range Interpretation Comments ALT (test code = ALT) 10 See_Comment [Auto mated message] The system which ge nerated this result transmit sarah reference range : <=65. The reference range was not used to interpr et this result as felicitas l/abnormal. [place] 853501-08-20 09:15:00 Test Item Value Reference Range Interpretation Comments AST (test code = AST) 5 See_Comment [Auto mated message] The system which ge nerated this result transmit sarah reference range : <=37. The reference range was not used to interpr et this result as felicitas l/abnormal. [place] [address]-08-20 09:15:00 Test Item Value Reference Range Interpretation Comments Alk Phos (test code = Alk Phos) 68 39-136 [facility] [employer] [id number] 09:15:00 Test Item Value Reference Range Interpretation Comments Bili Total (test code = Bili Total) 0.2 0.2-1.3 [employer] [id number] 09:15:00 Test Item Value Reference Range Interpretation Comments AGAP (test code = AGAP) 5.5 10.0-20.0 [facility] [employer] [id number] 09:15:00 Test Item Value Reference Range Interpretation Comments B/C Ratio (test code = B/C Ratio) 16 1 6-25 [facility] [employer] [id number] 09:15:00 Test Item Value Reference Range Interpretation Comments Globulin (test code = Globulin) 2.9 2.7-4.2 [facility] [employer] [id number] 09:15:00 Test Item Value Reference Range Interpretation Comments A/G Ratio (test code = A/G Ratio) 0.9 1 0.7-1.6 [facility] [employer] [id number] 09:15:00 Test Item Value Reference Range Interpretation Comments eGFR (test code = eGFR) 94 [facility] [employer] [id number] 09:15:00 Test Item Value Reference Range Interpretation Comments ABO/Rh (test code = ABO/Rh) A POS [facility] [employer] [id number] 09:15:00 Test Item Value Reference Range Interpretation Comments Antibody Scrn (test Negative (02/10/21 4:15 code = Antibody Scrn) AM) [facility] [employer] [id number] 09:15:00 Test Item Value Reference Range Interpretation Comments Glucose Lvl (test code = Glucose Lvl) 105 70-99 [facility] [employer] [id number] 09:15:00 Test Item Value Reference Range Interpretation Comments BUN (test code = BUN) 10 7-22 [facility] [employer] [id number] 09:15:00 Test Item Value Reference Range Interpretation Comments Creatinine Lvl (test code = Creatinine 0.61 0.50-1.40 Lvl) [facility] [employer] [id number] 09:15:00 Test Item Value Reference Range Interpretation Comments Sodium Lvl (test code = Sodium Lvl) 143 135-145 [facility] [id number] 09:15:00 Test Item Value Reference Range Interpretation Comments Potassium Lvl (test code = Potassium 3.5 3.5-5.1 Lvl) [place] 853501-08-20 09:15:00 Test Item Value Reference Range Interpretation Comments Chloride Lvl (test code = Chloride Lvl) 116 95-109 [facility] [id number] 09:15:00 Test Item Value Reference Range Interpretation Comments CO2 (test code = CO2) 25 24-32 [facility] [id number] 09:15:00 Test Item Value Reference Range Interpretation Comments Calcium Lvl (test code = Calcium Lvl) 8.6 8.5-10.5 [id number] 09:15:00 Test Item Value Reference Range Interpretation Comments Total Protein (test code = Total 5.5 6.4-8.4 Protein) [place] 853501-08-20 09:15:00 Test Item Value Reference Range Interpretation Comments Albumin Lvl (test code = Albumin Lvl) 2.6 3.5-5.0 [facility] [id number] 09:15:00 Test Item Value Reference Range Interpretation Comments ALT (test code = ALT) 10 See_Comment [Auto mated message] The system which ge nerated this result transmit sarah reference range : <=65. The reference range was not used to interpr et this result as felicitas l/abnormal. [facility] [id number] 09:15:00 Test Item Value Reference Range Interpretation Comments AST (test code = AST) 5 See_Comment [Auto mated message] The system which ge nerated this result transmit sarah reference range : <=37. The reference range was not used to interpr et this result as felicitas l/abnormal. [facility] [id number] 09:15:00 Test Item Value Reference Range Interpretation Comments Alk Phos (test code = Alk Phos) 68 39-136 [facility] [id number] 09:15:00 Test Item Value Reference Range Interpretation Comments Bili Total (test code = Bili Total) 0.2 0.2-1.3 [employer] [id number] 09:15:00 Test Item Value Reference Range Interpretation Comments AGAP (test code = AGAP) 5.5 10.0-20.0 [facility] [employer] [id number] 09:15:00 Test Item Value Reference Range Interpretation Comments B/C Ratio (test code = B/C Ratio) 16 1 6-25 [facility] [employer] [id number] 09:15:00 Test Item Value Reference Range Interpretation Comments Globulin (test code = Globulin) 2.9 2.7-4.2 [facility] [employer] [id number] 09:15:00 Test Item Value Reference Range Interpretation Comments A/G Ratio (test code = A/G Ratio) 0.9 1 0.7-1.6 [facility] [employer] [id number] 09:15:00 Test Item Value Reference Range Interpretation Comments eGFR (test code = eGFR) 94 [facility] [employer] [id number] 09:15:00 Test Item Value Reference Range Interpretation Comments ABO/Rh (test code = ABO/Rh) A POS [facility] [employer] [id number] 09:15:00 Test Item Value Reference Range Interpretation Comments Antibody Scrn (test Negative (02/10/21 4:15 code = Antibody Scrn) AM) [facility] [employer] [id number] 09:15:00 Test Item Value Reference Range Interpretation Comments Glucose Lvl (test code = Glucose Lvl) 105 70-99 [facility] [employer] [id number] 09:15:00 Test Item Value Reference Range Interpretation Comments BUN (test code = BUN) 10 7-22 [facility] [employer] [id number] 09:15:00 Test Item Value Reference Range Interpretation Comments Creatinine Lvl (test code = Creatinine 0.61 0.50-1.40 Lvl) [employer] [id number] 09:15:00 Test Item Value Reference Range Interpretation Comments Sodium Lvl (test code = Sodium Lvl) 143 135-145 [facility] [employer] [id number] 09:15:00 Test Item Value Reference Range Interpretation Comments Potassium Lvl (test code = Potassium 3.5 3.5-5.1 Lvl) [employer] [id number] 09:15:00 Test Item Value Reference Range Interpretation Comments Chloride Lvl (test code = Chloride Lvl) 116 95-109 [facility] [id number] 09:15:00 Test Item Value Reference Range Interpretation Comments CO2 (test code = CO2) 25 24-32 [facility] [id number] 09:15:00 Test Item Value Reference Range Interpretation Comments Calcium Lvl (test code = Calcium Lvl) 8.6 8.5-10.5 [facility] [id number] 09:15:00 Test Item Value Reference Range Interpretation Comments Total Protein (test code = Total 5.5 6.4-8.4 Protein) [facility] [id number] 09:15:00 Test Item Value Reference Range Interpretation Comments Albumin Lvl (test code = Albumin Lvl) 2.6 3.5-5.0 [facility] [id number] 09:15:00 Test Item Value Reference Range Interpretation Comments ALT (test code = ALT) 10 See_Comment [Auto mated message] The system which ge nerated this result transmit sarah reference range : <=65. The reference range was not used to interpr et this result as felicitas l/abnormal. [facility] [id number] 09:15:00 Test Item Value Reference Range Interpretation Comments AST (test code = AST) 5 See_Comment [Auto mated message] The system which ge nerated this result transmit sarah reference range : <=37. The reference range was not used to interpr et this result as felicitas l/abnormal. [facility] [id number] 09:15:00 Test Item Value Reference Range Interpretation Comments Alk Phos (test code = Alk Phos) 68 39-136 [facility] [id number] 09:15:00 Test Item Value Reference Range Interpretation Comments Bili Total (test code = Bili Total) 0.2 0.2-1.3 [facility] [id number] 09:15:00 Test Item Value Reference Range Interpretation Comments AGAP (test code = AGAP) 5.5 10.0-20.0 [facility] [id number] 09:15:00 Test Item Value Reference Range Interpretation Comments B/C Ratio (test code = B/C Ratio) 16 1 6-25 [facility] [id number] 09:15:00 Test Item Value Reference Range Interpretation Comments Globulin (test code = Globulin) 2.9 2.7-4.2 [facility] [employer] [id number] 09:15:00 Test Item Value Reference Range Interpretation Comments A/G Ratio (test code = A/G Ratio) 0.9 1 0.7-1.6 [facility] [employer] [id number] 09:15:00 Test Item Value Reference Range Interpretation Comments eGFR (test code = eGFR) 94 [facility] [employer] [id number] 09:15:00 Test Item Value Reference Range Interpretation Comments ABO/Rh (test code = ABO/Rh) A POS [facility] [employer] [id number] 09:15:00 Test Item Value Reference Range Interpretation Comments Antibody Scrn (test Negative (02/10/21 4:15 code = Antibody Scrn) AM) [facility] [employer] [id number] 09:15:00 Test Item Value Reference Range Interpretation Comments Glucose Lvl (test code = Glucose Lvl) 105 70-99 [facility] [employer] [id number] 09:15:00 Test Item Value Reference Range Interpretation Comments BUN (test code = BUN) 10 7-22 [facility] [employer] [id number] 09:15:00 Test Item Value Reference Range Interpretation Comments Creatinine Lvl (test code = Creatinine 0.61 0.50-1.40 Lvl) [facility] [employer] [id number] 09:15:00 Test Item Value Reference Range Interpretation Comments Sodium Lvl (test code = Sodium Lvl) 143 135-145 [facility] [employer] [id number] 09:15:00 Test Item Value Reference Range Interpretation Comments Potassium Lvl (test code = Potassium 3.5 3.5-5.1 Lvl) [facility] [employer] [id number] 09:15:00 Test Item Value Reference Range Interpretation Comments Chloride Lvl (test code = Chloride Lvl) 116 95-109 [facility] [employer] [id number] 09:15:00 Test Item Value Reference Range Interpretation Comments CO2 (test code = CO2) 25 24-32 [facility] [employer] [id number] 09:15:00 Test Item Value Reference Range Interpretation Comments Calcium Lvl (test code = Calcium Lvl) 8.6 8.5-10.5 [facility] [id number] 09:15:00 Test Item Value Reference Range Interpretation Comments Total Protein (test code = Total 5.5 6.4-8.4 Protein) [place] 853501-08-20 09:15:00 Test Item Value Reference Range Interpretation Comments Albumin Lvl (test code = Albumin Lvl) 2.6 3.5-5.0 [facility] [id number] 09:15:00 Test Item Value Reference Range Interpretation Comments ALT (test code = ALT) 10 See_Comment [Auto mated message] The system which ge nerated this result transmit sarah reference range : <=65. The reference range was not used to interpr et this result as felicitas l/abnormal. [facility] [id number] 09:15:00 Test Item Value Reference Range Interpretation Comments AST (test code = AST) 5 See_Comment [Auto mated message] The system which ge nerated this result transmit sarah reference range : <=37. The reference range was not used to interpr et this result as felicitas l/abnormal. [facility] [id number] 09:15:00 Test Item Value Reference Range Interpretation Comments Alk Phos (test code = Alk Phos) 68 39-136 [facility] [id number] 09:15:00 Test Item Value Reference Range Interpretation Comments Bili Total (test code = Bili Total) 0.2 0.2-1.3 [facility] [id number] 09:15:00 Test Item Value Reference Range Interpretation Comments AGAP (test code = AGAP) 5.5 10.0-20.0 [facility] [id number] 09:15:00 Test Item Value Reference Range Interpretation Comments B/C Ratio (test code = B/C Ratio) 16 1 6-25 [facility] [id number] 09:15:00 Test Item Value Reference Range Interpretation Comments Globulin (test code = Globulin) 2.9 2.7-4.2 [facility] [id number] 09:15:00 Test Item Value Reference Range Interpretation Comments A/G Ratio (test code = A/G Ratio) 0.9 1 0.7-1.6 [facility] [employer] [id number] 09:15:00 Test Item Value Reference Range Interpretation Comments eGFR (test code = eGFR) 94 [facility] [employer] [id number] 09:15:00 Test Item Value Reference Range Interpretation Comments ABO/Rh (test code = ABO/Rh) A POS [facility] [employer] [id number] 09:15:00 Test Item Value Reference Range Interpretation Comments Antibody Scrn (test Negative (02/10/21 4:15 code = Antibody Scrn) AM) [facility] [employer] [id number] 09:15:00 Test Item Value Reference Range Interpretation Comments Glucose Lvl (test code = Glucose Lvl) 105 70-99 [facility] [employer] [id number] 09:15:00 Test Item Value Reference Range Interpretation Comments BUN (test code = BUN) 10 7-22 [facility] [employer] [id number] 09:15:00 Test Item Value Reference Range Interpretation Comments Creatinine Lvl (test code = Creatinine 0.61 0.50-1.40 Lvl) [facility] [employer] [id number] 09:15:00 Test Item Value Reference Range Interpretation Comments Sodium Lvl (test code = Sodium Lvl) 143 135-145 [facility] [employer] [id number] 09:15:00 Test Item Value Reference Range Interpretation Comments Potassium Lvl (test code = Potassium 3.5 3.5-5.1 Lvl) [facility] [employer] [id number] 09:15:00 Test Item Value Reference Range Interpretation Comments Chloride Lvl (test code = Chloride Lvl) 116 95-109 [facility] [employer] [id number] 09:15:00 Test Item Value Reference Range Interpretation Comments CO2 (test code = CO2) 25 24-32 [facility] [employer] [id number] 09:15:00 Test Item Value Reference Range Interpretation Comments Calcium Lvl (test code = Calcium Lvl) 8.6 8.5-10.5 [facility] [employer] [id number] 09:15:00 Test Item Value Reference Range Interpretation Comments Total Protein (test code = Total 5.5 6.4-8.4 Protein) [facility] [employer] [id number] 09:15:00 Test Item Value Reference Range Interpretation Comments Albumin Lvl (test code = Albumin Lvl) 2.6 3.5-5.0 [facility]2021-08-20 09:15:00 Test Item Value Reference Range Interpretation Comments ALT (test code = ALT) 10 See_Comment [Auto mated message] The system which ge nerated this result transmit sarah reference range : <=65. The reference range was not used to interpr et this result as felicitas l/abnormal. [facility]2021-08-20 09:15:00 Test Item Value Reference Range Interpretation Comments AST (test code = AST) 5 See_Comment [Auto mated message] The system which ge nerated this result transmit sarah reference range : <=37. The reference range was not used to interpr et this result as felicitas l/abnormal. [employer] [id number] 09:15:00 Test Item Value Reference Range Interpretation Comments Alk Phos (test code = Alk Phos) 68 39-136 [facility] [employer]2021-08-20 09:15:00 Test Item Value Reference Range Interpretation Comments Bili Total (test code = Bili Total) 0.2 0.2-1.3 [facility]2021-08-20 09:15:00 Test Item Value Reference Range Interpretation Comments AGAP (test code = AGAP) 5.5 10.0-20.0 [employer] [id number] 09:15:00 Test Item Value Reference Range Interpretation Comments B/C Ratio (test code = B/C Ratio) 16 1 6-25 [facility] [employer] [id number] 09:15:00 Test Item Value Reference Range Interpretation Comments Globulin (test code = Globulin) 2.9 2.7-4.2 [facility]2021-08-20 09:15:00 Test Item Value Reference Range Interpretation Comments A/G Ratio (test code = A/G Ratio) 0.9 1 0.7-1.6 [facility]2021-08-20 09:15:00 Test Item Value Reference Range Interpretation Comments eGFR (test code = eGFR) 94 [facility] [employer] [id number] 09:15:00 Test Item Value Reference Range Interpretation Comments ABO/Rh (test code = ABO/Rh) A POS [facility] [id number] 09:15:00 Test Item Value Reference Range Interpretation Comments Antibody Scrn (test Negative (02/10/21 4:15 code = Antibody Scrn) AM) [facility]2021-08-20 09:15:00 Test Item Value Reference Range Interpretation Comments Glucose Lvl (test code = Glucose Lvl) 105 70-99 [facility]2021-08-20 09:15:00 Test Item Value Reference Range Interpretation Comments BUN (test code = BUN) 10 7-22 [facility]2021-08-20 09:15:00 Test Item Value Reference Range Interpretation Comments Creatinine Lvl (test code = Creatinine 0.61 0.50-1.40 Lvl) [facility]2021-08-20 09:15:00 Test Item Value Reference Range Interpretation Comments Sodium Lvl (test code = Sodium Lvl) 143 135-145 [facility]2021-08-20 09:15:00 Test Item Value Reference Range Interpretation Comments Potassium Lvl (test code = Potassium 3.5 3.5-5.1 Lvl) [facility]2021-08-20 09:15:00 Test Item Value Reference Range Interpretation Comments Chloride Lvl (test code = Chloride Lvl) 116 95-109 [facility]2021-08-20 09:15:00 Test Item Value Reference Range Interpretation Comments CO2 (test code = CO2) 25 24-32 [facility]2021-08-20 09:15:00 Test Item Value Reference Range Interpretation Comments Calcium Lvl (test code = Calcium Lvl) 8.6 8.5-10.5 [facility]2021-08-20 09:15:00 Test Item Value Reference Range Interpretation Comments Total Protein (test code = Total 5.5 6.4-8.4 Protein) [place] [id number] 09:15:00 Test Item Value Reference Range Interpretation Comments Albumin Lvl (test code = Albumin Lvl) 2.6 3.5-5.0 [facility]2021-08-20 09:15:00 Test Item Value Reference Range Interpretation Comments ALT (test code = ALT) 10 See_Comment [Auto mated message] The system which ge nerated this result transmit sarah reference range : <=65. The reference range was not used to interpr et this result as felicitas l/abnormal. [employer] [id number] 09:15:00 Test Item Value Reference Range Interpretation Comments AST (test code = AST) 5 See_Comment [Auto mated message] The system which ge nerated this result transmit sarah reference range : <=37. The reference range was not used to interpr et this result as felicitas l/abnormal. [employer] [id number] 09:15:00 Test Item Value Reference Range Interpretation Comments Alk Phos (test code = Alk Phos) 68 39-136 [facility] [employer] [id number] 09:15:00 Test Item Value Reference Range Interpretation Comments Bili Total (test code = Bili Total) 0.2 0.2-1.3 [employer] [id number] 09:15:00 Test Item Value Reference Range Interpretation Comments AGAP (test code = AGAP) 5.5 10.0-20.0 [facility]2021-08-20 09:15:00 Test Item Value Reference Range Interpretation Comments B/C Ratio (test code = B/C Ratio) 16 1 6-25 [facility] [employer]2021-08-20 09:15:00 Test Item Value Reference Range Interpretation Comments Globulin (test code = Globulin) 2.9 2.7-4.2 [facility] [employer] [id number] 09:15:00 Test Item Value Reference Range Interpretation Comments A/G Ratio (test code = A/G Ratio) 0.9 1 0.7-1.6 [facility] [employer] [id number] 09:15:00 Test Item Value Reference Range Interpretation Comments eGFR (test code = eGFR) 94 [facility] [employer] [id number] 09:15:00 Test Item Value Reference Range Interpretation Comments ABO/Rh (test code = ABO/Rh) A POS [facility] [employer] [id number] 09:15:00 Test Item Value Reference Range Interpretation Comments Antibody Scrn (test Negative (02/10/21 4:15 code = Antibody Scrn) AM) [facility] [employer] [id number] 09:15:00 Test Item Value Reference Range Interpretation Comments Glucose Lvl (test code = Glucose Lvl) 105 70-99 [place] 853501-08-20 09:15:00 Test Item Value Reference Range Interpretation Comments BUN (test code = BUN) 10 7-22 [place] [address]-08-20 09:15:00 Test Item Value Reference Range Interpretation Comments Creatinine Lvl (test code = Creatinine 0.61 0.50-1.40 Lvl) [place] 853501-08-20 09:15:00 Test Item Value Reference Range Interpretation Comments Sodium Lvl (test code = Sodium Lvl) 143 135-145 [place] 853501-08-20 09:15:00 Test Item Value Reference Range Interpretation Comments Potassium Lvl (test code = Potassium 3.5 3.5-5.1 Lvl) [address]08-20 09:15:00 Test Item Value Reference Range Interpretation Comments Chloride Lvl (test code = Chloride Lvl) 116 95-109 [place] [address]-08-20 09:15:00 Test Item Value Reference Range Interpretation Comments CO2 (test code = CO2) 25 24-32 [place] [address]-08-20 09:15:00 Test Item Value Reference Range Interpretation Comments Calcium Lvl (test code = Calcium Lvl) 8.6 8.5-10.5 [place] [address]-08-20 09:15:00 Test Item Value Reference Range Interpretation Comments Total Protein (test code = Total 5.5 6.4-8.4 Protein) [place] 853501-08-20 09:15:00 Test Item Value Reference Range Interpretation Comments Albumin Lvl (test code = Albumin Lvl) 2.6 3.5-5.0 [place] [address]-08-20 09:15:00 Test Item Value Reference Range Interpretation Comments ALT (test code = ALT) 10 See_Comment [Auto mated message] The system which ge nerated this result transmit sarah reference range : <=65. The reference range was not used to interpr et this result as felicitas l/abnormal. [place] [address]-08-20 09:15:00 Test Item Value Reference Range Interpretation Comments AST (test code = AST) 5 See_Comment [Auto mated message] The system which ge nerated this result transmit sarah reference range : <=37. The reference range was not used to interpr et this result as felicitas l/abnormal. [employer] [id number] 09:15:00 Test Item Value Reference Range Interpretation Comments Alk Phos (test code = Alk Phos) 68 39-136 [facility] [employer] [id number] 09:15:00 Test Item Value Reference Range Interpretation Comments Bili Total (test code = Bili Total) 0.2 0.2-1.3 [facility] [employer] [id number] 09:15:00 Test Item Value Reference Range Interpretation Comments AGAP (test code = AGAP) 5.5 10.0-20.0 [facility] [employer] [id number] 09:15:00 Test Item Value Reference Range Interpretation Comments B/C Ratio (test code = B/C Ratio) 16 1 6-25 [facility] [employer] [id number] 09:15:00 Test Item Value Reference Range Interpretation Comments Globulin (test code = Globulin) 2.9 2.7-4.2 [facility] [employer] [id number] 09:15:00 Test Item Value Reference Range Interpretation Comments A/G Ratio (test code = A/G Ratio) 0.9 1 0.7-1.6 [facility] [employer] [id number] 09:15:00 Test Item Value Reference Range Interpretation Comments eGFR (test code = eGFR) 94 [facility] [employer] [id number] 09:15:00 Test Item Value Reference Range Interpretation Comments ABO/Rh (test code = ABO/Rh) A POS [facility] [employer] [id number] 09:15:00 Test Item Value Reference Range Interpretation Comments Antibody Scrn (test Negative (02/10/21 4:15 code = Antibody Scrn) AM) [facility] [employer] [id number] 09:15:00 Test Item Value Reference Range Interpretation Comments Glucose Lvl (test code = Glucose Lvl) 105 70-99 [facility] [employer] [id number] 09:15:00 Test Item Value Reference Range Interpretation Comments BUN (test code = BUN) 10 7-22 [facility] [employer] [id number] 09:15:00 Test Item Value Reference Range Interpretation Comments Creatinine Lvl (test code = Creatinine 0.61 0.50-1.40 Lvl) [place] 853501-08-20 09:15:00 Test Item Value Reference Range Interpretation Comments Sodium Lvl (test code = Sodium Lvl) 143 135-145 [place] 853501-08-20 09:15:00 Test Item Value Reference Range Interpretation Comments Potassium Lvl (test code = Potassium 3.5 3.5-5.1 Lvl) [place] 853501-08-20 09:15:00 Test Item Value Reference Range Interpretation Comments Chloride Lvl (test code = Chloride Lvl) 116 95-109 [place] 853501-08-20 09:15:00 Test Item Value Reference Range Interpretation Comments CO2 (test code = CO2) 25 24-32 [place] 853501-08-20 09:15:00 Test Item Value Reference Range Interpretation Comments Calcium Lvl (test code = Calcium Lvl) 8.6 8.5-10.5 [place] 853501-08-20 09:15:00 Test Item Value Reference Range Interpretation Comments Total Protein (test code = Total 5.5 6.4-8.4 Protein) [place] 853501-08-20 09:15:00 Test Item Value Reference Range Interpretation Comments Albumin Lvl (test code = Albumin Lvl) 2.6 3.5-5.0 [place] 853501-08-20 09:15:00 Test Item Value Reference Range Interpretation Comments ALT (test code = ALT) 10 See_Comment [Auto mated message] The system which ge nerated this result transmit sarah reference range : <=65. The reference range was not used to interpr et this result as felicitas l/abnormal. [place] 853501-08-20 09:15:00 Test Item Value Reference Range Interpretation Comments AST (test code = AST) 5 See_Comment [Auto mated message] The system which ge nerated this result transmit sarah reference range : <=37. The reference range was not used to interpr et this result as felicitas l/abnormal. [place] 853501-08-20 09:15:00 Test Item Value Reference Range Interpretation Comments Alk Phos (test code = Alk Phos) 68 39-136 [facility] [id number] 09:15:00 Test Item Value Reference Range Interpretation Comments Bili Total (test code = Bili Total) 0.2 0.2-1.3 [facility]2021-08-20 09:15:00 Test Item Value Reference Range Interpretation Comments AGAP (test code = AGAP) 5.5 10.0-20.0 [employer] [id number] 09:15:00 Test Item Value Reference Range Interpretation Comments B/C Ratio (test code = B/C Ratio) 16 1 6-25 [employer] [id number] 09:15:00 Test Item Value Reference Range Interpretation Comments Globulin (test code = Globulin) 2.9 2.7-4.2 [facility]2021-08-20 09:15:00 Test Item Value Reference Range Interpretation Comments A/G Ratio (test code = A/G Ratio) 0.9 1 0.7-1.6 [facility]2021-08-20 09:15:00 Test Item Value Reference Range Interpretation Comments eGFR (test code = eGFR) 94 [facility] [employer] [id number] 09:15:00 Test Item Value Reference Range Interpretation Comments ABO/Rh (test code = ABO/Rh) A POS [facility] [id number] 09:15:00 Test Item Value Reference Range Interpretation Comments Antibody Scrn (test Negative (02/10/21 4:15 code = Antibody Scrn) AM) [facility]2021-08-20 09:15:00 Test Item Value Reference Range Interpretation Comments Glucose Lvl (test code = Glucose Lvl) 105 70-99 [facility]2021-08-20 09:15:00 Test Item Value Reference Range Interpretation Comments BUN (test code = BUN) 10 7-22 [facility]2021-08-20 09:15:00 Test Item Value Reference Range Interpretation Comments Creatinine Lvl (test code = Creatinine 0.61 0.50-1.40 Lvl) [facility]2021-08-20 09:15:00 Test Item Value Reference Range Interpretation Comments Sodium Lvl (test code = Sodium Lvl) 143 135-145 [facility]2021-08-20 09:15:00 Test Item Value Reference Range Interpretation Comments Potassium Lvl (test code = Potassium 3.5 3.5-5.1 Lvl) [facility]2021-08-20 09:15:00 Test Item Value Reference Range Interpretation Comments Chloride Lvl (test code = Chloride Lvl) 116 95-109 [facility] [id number] 09:15:00 Test Item Value Reference Range Interpretation Comments CO2 (test code = CO2) 25 24-32 [facility] [id number] 09:15:00 Test Item Value Reference Range Interpretation Comments Calcium Lvl (test code = Calcium Lvl) 8.6 8.5-10.5 [facility] [id number] 09:15:00 Test Item Value Reference Range Interpretation Comments Total Protein (test code = Total 5.5 6.4-8.4 Protein) [facility] [id number] 09:15:00 Test Item Value Reference Range Interpretation Comments Albumin Lvl (test code = Albumin Lvl) 2.6 3.5-5.0 [facility] [id number] 09:15:00 Test Item Value Reference Range Interpretation Comments ALT (test code = ALT) 10 See_Comment [Auto mated message] The system which ge nerated this result transmit sarah reference range : <=65. The reference range was not used to interpr et this result as felicitas l/abnormal. [facility] [employer] [id number] 09:15:00 Test Item Value Reference Range Interpretation Comments AST (test code = AST) 5 See_Comment [Auto mated message] The system which ge nerated this result transmit sarah reference range : <=37. The reference range was not used to interpr et this result as felicitas l/abnormal. [facility] [employer] [id number] 09:15:00 Test Item Value Reference Range Interpretation Comments Alk Phos (test code = Alk Phos) 68 39-136 [facility] [id number] 09:15:00 Test Item Value Reference Range Interpretation Comments Bili Total (test code = Bili Total) 0.2 0.2-1.3 [facility] [id number] 09:15:00 Test Item Value Reference Range Interpretation Comments AGAP (test code = AGAP) 5.5 10.0-20.0 [facility] [employer] [id number] 09:15:00 Test Item Value Reference Range Interpretation Comments B/C Ratio (test code = B/C Ratio) 16 1 6-25 [facility] [employer] [id number] 09:15:00 Test Item Value Reference Range Interpretation Comments Globulin (test code = Globulin) 2.9 2.7-4.2 [facility] [employer] [id number] 09:15:00 Test Item Value Reference Range Interpretation Comments A/G Ratio (test code = A/G Ratio) 0.9 1 0.7-1.6 [facility] [employer] [id number] 09:15:00 Test Item Value Reference Range Interpretation Comments eGFR (test code = eGFR) 94 [facility] [employer] [id number] 09:15:00 Test Item Value Reference Range Interpretation Comments ABO/Rh (test code = ABO/Rh) A POS [facility] [employer] [id number] 09:15:00 Test Item Value Reference Range Interpretation Comments Antibody Scrn (test Negative (02/10/21 4:15 code = Antibody Scrn) AM) [facility] [employer] [id number] 09:15:00 Test Item Value Reference Range Interpretation Comments Glucose Lvl (test code = Glucose Lvl) 105 70-99 [facility] [employer] [id number] 09:15:00 Test Item Value Reference Range Interpretation Comments BUN (test code = BUN) 10 7-22 [facility] [employer] [id number] 09:15:00 Test Item Value Reference Range Interpretation Comments Creatinine Lvl (test code = Creatinine 0.61 0.50-1.40 Lvl) [facility] [employer] [id number] 09:15:00 Test Item Value Reference Range Interpretation Comments Sodium Lvl (test code = Sodium Lvl) 143 135-145 [facility] [employer] [id number] 09:15:00 Test Item Value Reference Range Interpretation Comments Potassium Lvl (test code = Potassium 3.5 3.5-5.1 Lvl) [facility] [employer] [id number] 09:15:00 Test Item Value Reference Range Interpretation Comments Chloride Lvl (test code = Chloride Lvl) 116 95-109 [facility] [employer] [id number] 09:15:00 Test Item Value Reference Range Interpretation Comments CO2 (test code = CO2) 25 24-32 [facility] [employer] [id number] 09:15:00 Test Item Value Reference Range Interpretation Comments Calcium Lvl (test code = Calcium Lvl) 8.6 8.5-10.5 [facility] [employer] [id number] 09:15:00 Test Item Value Reference Range Interpretation Comments Total Protein (test code = Total 5.5 6.4-8.4 Protein) [facility] [id number] 09:15:00 Test Item Value Reference Range Interpretation Comments Albumin Lvl (test code = Albumin Lvl) 2.6 3.5-5.0 [facility] [employer] [id number] 09:15:00 Test Item Value Reference Range Interpretation Comments ALT (test code = ALT) 10 See_Comment [Auto mated message] The system which ge nerated this result transmit sarah reference range : <=65. The reference range was not used to interpr et this result as felicitas l/abnormal. [facility] [employer] [id number] 09:15:00 Test Item Value Reference Range Interpretation Comments AST (test code = AST) 5 See_Comment [Auto mated message] The system which ge nerated this result transmit sarah reference range : <=37. The reference range was not used to interpr et this result as felicitas l/abnormal. [facility] [employer] [id number] 09:15:00 Test Item Value Reference Range Interpretation Comments Alk Phos (test code = Alk Phos) 68 39-136 [facility] [employer] [id number] 09:15:00 Test Item Value Reference Range Interpretation Comments ABO/Rh (test code = ABO/Rh) A POS [facility] [employer] [id number] 09:15:00 Test Item Value Reference Range Interpretation Comments Antibody Scrn (test Negative (02/10/21 4:15 code = Antibody Scrn) AM) [facility] [employer] [id number] 09:15:00 Test Item Value Reference Range Interpretation Comments Glucose Lvl (test code = Glucose Lvl) 105 70-99 [facility] [employer] [id number] 09:15:00 Test Item Value Reference Range Interpretation Comments BUN (test code = BUN) 10 7-22 [facility] [employer] [id number] 09:15:00 Test Item Value Reference Range Interpretation Comments Creatinine Lvl (test code = Creatinine 0.61 0.50-1.40 Lvl) [place] 853501-08-20 09:15:00 Test Item Value Reference Range Interpretation Comments Sodium Lvl (test code = Sodium Lvl) 143 135-145 [place] 853501-08-20 09:15:00 Test Item Value Reference Range Interpretation Comments Potassium Lvl (test code = Potassium 3.5 3.5-5.1 Lvl) [place] 853501-08-20 09:15:00 Test Item Value Reference Range Interpretation Comments Bili Total (test code = Bili Total) 0.2 0.2-1.3 [place] 853501-08-20 09:15:00 Test Item Value Reference Range Interpretation Comments Chloride Lvl (test code = Chloride Lvl) 116 95-109 [place] 853501-08-20 09:15:00 Test Item Value Reference Range Interpretation Comments CO2 (test code = CO2) 25 24-32 [place] 853501-08-20 09:15:00 Test Item Value Reference Range Interpretation Comments Calcium Lvl (test code = Calcium Lvl) 8.6 8.5-10.5 [place] 853501-08-20 09:15:00 Test Item Value Reference Range Interpretation Comments Total Protein (test code = Total 5.5 6.4-8.4 Protein) [place] 853501-08-20 09:15:00 Test Item Value Reference Range Interpretation Comments Albumin Lvl (test code = Albumin Lvl) 2.6 3.5-5.0 [place] 853501-08-20 09:15:00 Test Item Value Reference Range Interpretation Comments ALT (test code = ALT) 10 See_Comment [Auto mated message] The system which ge nerated this result transmit sarah reference range : <=65. The reference range was not used to interpr et this result as felicitas l/abnormal. [place] 853501-08-20 09:15:00 Test Item Value Reference Range Interpretation Comments AST (test code = AST) 5 See_Comment [Auto mated message] The system which ge nerated this result transmit sarah reference range : <=37. The reference range was not used to interpr et this result as felicitas l/abnormal. [facility] [id number] 09:15:00 Test Item Value Reference Range Interpretation Comments Alk Phos (test code = Alk Phos) 68 39-136 [facility] [id number] 09:15:00 Test Item Value Reference Range Interpretation Comments Bili Total (test code = Bili Total) 0.2 0.2-1.3 [facility] [id number] 09:15:00 Test Item Value Reference Range Interpretation Comments AGAP (test code = AGAP) 5.5 10.0-20.0 [facility] [id number] 09:15:00 Test Item Value Reference Range Interpretation Comments AGAP (test code = AGAP) 5.5 10.0-20.0 [facility] [employer] [id number] 09:15:00 Test Item Value Reference Range Interpretation Comments B/C Ratio (test code = B/C Ratio) 16 12-16 [facility] [id number] 09:15:00 Test Item Value Reference Range Interpretation Comments Globulin (test code = Globulin) 2.9 2.7-4.2 [facility] [id number] 09:15:00 Test Item Value Reference Range Interpretation Comments A/G Ratio (test code = A/G Ratio) 0.9 1 0.7-1.6 [facility] [id number] 09:15:00 Test Item Value Reference Range Interpretation Comments eGFR (test code = eGFR) 94 [facility] [id number] 09:15:00 Test Item Value Reference Range Interpretation Comments B/C Ratio (test code = B/C Ratio) 16 12-16 [facility] [employer] [id number] 09:15:00 Test Item Value Reference Range Interpretation Comments Globulin (test code = Globulin) 2.9 2.7-4.2 [facility] [id number] 09:15:00 Test Item Value Reference Range Interpretation Comments A/G Ratio (test code = A/G Ratio) 0.9 1 0.7-1.6 [facility] [id number] 09:15:00 Test Item Value Reference Range Interpretation Comments eGFR (test code = eGFR) 94 [facility] [id number] 09:15:00 Test Item Value Reference Range Interpretation Comments ABO/Rh (test code = ABO/Rh) A POS [facility] [id number] 09:15:00 Test Item Value Reference Range Interpretation Comments Antibody Scrn (test Negative (02/10/21 4:15 code = Antibody Scrn) AM) [facility]2021-08-20 09:15:00 Test Item Value Reference Range Interpretation Comments Glucose Lvl (test code = Glucose Lvl) 105 70-99 [facility]2021-08-20 09:15:00 Test Item Value Reference Range Interpretation Comments BUN (test code = BUN) 10 7-22 [facility]2021-08-20 09:15:00 Test Item Value Reference Range Interpretation Comments Creatinine Lvl (test code = Creatinine 0.61 0.50-1.40 Lvl) [facility]2021-08-20 09:15:00 Test Item Value Reference Range Interpretation Comments Sodium Lvl (test code = Sodium Lvl) 143 135-145 [facility]2021-08-20 09:15:00 Test Item Value Reference Range Interpretation Comments Potassium Lvl (test code = Potassium 3.5 3.5-5.1 Lvl) [facility]2021-08-20 09:15:00 Test Item Value Reference Range Interpretation Comments Chloride Lvl (test code = Chloride Lvl) 116 95-109 [facility]2021-08-20 09:15:00 Test Item Value Reference Range Interpretation Comments CO2 (test code = CO2) 25 24-32 [facility]2021-08-20 09:15:00 Test Item Value Reference Range Interpretation Comments Calcium Lvl (test code = Calcium Lvl) 8.6 8.5-10.5 [facility]2021-08-20 09:15:00 Test Item Value Reference Range Interpretation Comments Total Protein (test code = Total 5.5 6.4-8.4 Protein) [facility]2021-08-20 09:15:00 Test Item Value Reference Range Interpretation Comments Albumin Lvl (test code = Albumin Lvl) 2.6 3.5-5.0 [facility]2021-08-20 09:15:00 Test Item Value Reference Range Interpretation Comments ALT (test code = ALT) 10 See_Comment [Auto mated message] The system which ge nerated this result transmit sarah reference range : <=65. The reference range was not used to interpr et this result as felicitas l/abnormal. [facility]2021-08-20 09:15:00 Test Item Value Reference Range Interpretation Comments AST (test code = AST) 5 See_Comment [Auto mated message] The system which ge nerated this result transmit sarah reference range : <=37. The reference range was not used to interpr et this result as felicitas l/abnormal. [facility]2021-08-20 09:15:00 Test Item Value Reference Range Interpretation Comments Alk Phos (test code = Alk Phos) 68 39-136 [facility] [employer]2021-08-20 09:15:00 Test Item Value Reference Range Interpretation Comments Bili Total (test code = Bili Total) 0.2 0.2-1.3 [facility]2021-08-20 09:15:00 Test Item Value Reference Range Interpretation Comments AGAP (test code = AGAP) 5.5 10.0-20.0 [facility]2021-08-20 09:15:00 Test Item Value Reference Range Interpretation Comments B/C Ratio (test code = B/C Ratio) 16 1 6-25 [facility]2021-08-20 09:15:00 Test Item Value Reference Range Interpretation Comments Globulin (test code = Globulin) 2.9 2.7-4.2 [facility]2021-08-20 09:15:00 Test Item Value Reference Range Interpretation Comments A/G Ratio (test code = A/G Ratio) 0.9 1 0.7-1.6 [facility]2021-08-20 09:15:00 Test Item Value Reference Range Interpretation Comments eGFR (test code = eGFR) 94 [facility] [employer] [id number] 09:15:00 Test Item Value Reference Range Interpretation Comments ABO/Rh (test code = ABO/Rh) A POS [facility] [employer] [id number] 09:15:00 Test Item Value Reference Range Interpretation Comments Antibody Scrn (test Negative (02/10/21 4:15 code = Antibody Scrn) AM) [facility]2021-08-20 09:15:00 Test Item Value Reference Range Interpretation Comments Glucose Lvl (test code = Glucose Lvl) 105 70-99 [place] 853501-08-20 09:15:00 Test Item Value Reference Range Interpretation Comments BUN (test code = BUN) 10 7-22 [place] 853501-08-20 09:15:00 Test Item Value Reference Range Interpretation Comments Creatinine Lvl (test code = Creatinine 0.61 0.50-1.40 Lvl) [place] 853501-08-20 09:15:00 Test Item Value Reference Range Interpretation Comments Sodium Lvl (test code = Sodium Lvl) 143 135-145 [place] 853501-08-20 09:15:00 Test Item Value Reference Range Interpretation Comments Potassium Lvl (test code = Potassium 3.5 3.5-5.1 Lvl) [place] 853501-08-20 09:15:00 Test Item Value Reference Range Interpretation Comments Chloride Lvl (test code = Chloride Lvl) 116 95-109 [place] 853501-08-20 09:15:00 Test Item Value Reference Range Interpretation Comments CO2 (test code = CO2) 25 24-32 [place] 853501-08-20 09:15:00 Test Item Value Reference Range Interpretation Comments Calcium Lvl (test code = Calcium Lvl) 8.6 8.5-10.5 [place] 853501-08-20 09:15:00 Test Item Value Reference Range Interpretation Comments Total Protein (test code = Total 5.5 6.4-8.4 Protein) [place] 853501-08-20 09:15:00 Test Item Value Reference Range Interpretation Comments Albumin Lvl (test code = Albumin Lvl) 2.6 3.5-5.0 [place] 853501-08-20 09:15:00 Test Item Value Reference Range Interpretation Comments ALT (test code = ALT) 10 See_Comment [Auto mated message] The system which ge nerated this result transmit sarah reference range : <=65. The reference range was not used to interpr et this result as felicitas l/abnormal. [place] 853501-08-20 09:15:00 Test Item Value Reference Range Interpretation Comments AST (test code = AST) 5 See_Comment [Auto mated message] The system which ge nerated this result transmit sarah reference range : <=37. The reference range was not used to interpr et this result as felicitas l/abnormal. [employer] [id number] 09:15:00 Test Item Value Reference Range Interpretation Comments Alk Phos (test code = Alk Phos) 68 39-136 [facility] [employer] [id number] 09:15:00 Test Item Value Reference Range Interpretation Comments Bili Total (test code = Bili Total) 0.2 0.2-1.3 [facility] [employer] [id number] 09:15:00 Test Item Value Reference Range Interpretation Comments AGAP (test code = AGAP) 5.5 10.0-20.0 [facility] [employer] [id number] 09:15:00 Test Item Value Reference Range Interpretation Comments B/C Ratio (test code = B/C Ratio) 16 1 6-25 [facility] [employer] [id number] 09:15:00 Test Item Value Reference Range Interpretation Comments Globulin (test code = Globulin) 2.9 2.7-4.2 [facility] [employer] [id number] 09:15:00 Test Item Value Reference Range Interpretation Comments A/G Ratio (test code = A/G Ratio) 0.9 1 0.7-1.6 [facility] [employer] [id number] 09:15:00 Test Item Value Reference Range Interpretation Comments eGFR (test code = eGFR) 94 [facility] [employer] [id number] 09:15:00 Test Item Value Reference Range Interpretation Comments ABO/Rh (test code = ABO/Rh) A POS [facility] [employer] [id number] 09:15:00 Test Item Value Reference Range Interpretation Comments Antibody Scrn (test Negative (02/10/21 4:15 code = Antibody Scrn) AM) [facility] [employer] [id number] 09:15:00 Test Item Value Reference Range Interpretation Comments Glucose Lvl (test code = Glucose Lvl) 105 70-99 [facility] [employer] [id number] 09:15:00 Test Item Value Reference Range Interpretation Comments BUN (test code = BUN) 10 7-22 [facility]2021-08-20 09:15:00 Test Item Value Reference Range Interpretation Comments Creatinine Lvl (test code = Creatinine 0.61 0.50-1.40 Lvl) [place] 853501-08-20 09:15:00 Test Item Value Reference Range Interpretation Comments Sodium Lvl (test code = Sodium Lvl) 143 135-145 [place] 853501-08-20 09:15:00 Test Item Value Reference Range Interpretation Comments Potassium Lvl (test code = Potassium 3.5 3.5-5.1 Lvl) [place] 853501-08-20 09:15:00 Test Item Value Reference Range Interpretation Comments Chloride Lvl (test code = Chloride Lvl) 116 95-109 [place] 853501-08-20 09:15:00 Test Item Value Reference Range Interpretation Comments CO2 (test code = CO2) 25 24-32 [place] 853501-08-20 09:15:00 Test Item Value Reference Range Interpretation Comments Calcium Lvl (test code = Calcium Lvl) 8.6 8.5-10.5 [place] 853501-08-20 09:15:00 Test Item Value Reference Range Interpretation Comments Total Protein (test code = Total 5.5 6.4-8.4 Protein) [place] 853501-08-20 09:15:00 Test Item Value Reference Range Interpretation Comments Albumin Lvl (test code = Albumin Lvl) 2.6 3.5-5.0 [place] 853501-08-20 09:15:00 Test Item Value Reference Range Interpretation Comments ALT (test code = ALT) 10 See_Comment [Auto mated message] The system which ge nerated this result transmit sarah reference range : <=65. The reference range was not used to interpr et this result as felicitas l/abnormal. [place] 853501-08-20 09:15:00 Test Item Value Reference Range Interpretation Comments AST (test code = AST) 5 See_Comment [Auto mated message] The system which ge nerated this result transmit sarah reference range : <=37. The reference range was not used to interpr et this result as felicitas l/abnormal. [place] [address]-08-20 09:15:00 Test Item Value Reference Range Interpretation Comments Alk Phos (test code = Alk Phos) 68 39-136 [facility] [id number] 09:15:00 Test Item Value Reference Range Interpretation Comments Bili Total (test code = Bili Total) 0.2 0.2-1.3 [employer] [id number] 09:15:00 Test Item Value Reference Range Interpretation Comments AGAP (test code = AGAP) 5.5 10.0-20.0 [facility] [employer] [id number] 09:15:00 Test Item Value Reference Range Interpretation Comments B/C Ratio (test code = B/C Ratio) 16 1 6-25 [facility] [employer] [id number] 09:15:00 Test Item Value Reference Range Interpretation Comments Globulin (test code = Globulin) 2.9 2.7-4.2 [facility]2021-08-20 09:15:00 Test Item Value Reference Range Interpretation Comments A/G Ratio (test code = A/G Ratio) 0.9 1 0.7-1.6 [facility] [employer] [id number] 09:15:00 Test Item Value Reference Range Interpretation Comments eGFR (test code = eGFR) 94 [facility] [employer] [id number] 09:15:00 Test Item Value Reference Range Interpretation Comments ABO/Rh (test code = ABO/Rh) A POS [facility] [place] [id number] 09:15:00 Test Item Value Reference Range Interpretation Comments Antibody Scrn (test Negative (02/10/21 4:15 code = Antibody Scrn) AM) [facility] [employer] [id number] 09:15:00 Test Item Value Reference Range Interpretation Comments Glucose Lvl (test code = Glucose Lvl) 105 70-99 [facility] [employer] [id number] 09:15:00 Test Item Value Reference Range Interpretation Comments BUN (test code = BUN) 10 7-22 [employer] [id number] 09:15:00 Test Item Value Reference Range Interpretation Comments Creatinine Lvl (test code = Creatinine 0.61 0.50-1.40 Lvl) [facility] [employer] [id number] 09:15:00 Test Item Value Reference Range Interpretation Comments Sodium Lvl (test code = Sodium Lvl) 143 135-145 [facility]2021-08-20 09:15:00 Test Item Value Reference Range Interpretation Comments Potassium Lvl (test code = Potassium 3.5 3.5-5.1 Lvl) [facility] [id number] 09:15:00 Test Item Value Reference Range Interpretation Comments Chloride Lvl (test code = Chloride Lvl) 116 95-109 [place] 853501-08-20 09:15:00 Test Item Value Reference Range Interpretation Comments CO2 (test code = CO2) 25 24-32 [place] 853501-08-20 09:15:00 Test Item Value Reference Range Interpretation Comments Calcium Lvl (test code = Calcium Lvl) 8.6 8.5-10.5 [facility] [id number] 09:15:00 Test Item Value Reference Range Interpretation Comments Total Protein (test code = Total 5.5 6.4-8.4 Protein) [place] 853501-08-20 09:15:00 Test Item Value Reference Range Interpretation Comments Albumin Lvl (test code = Albumin Lvl) 2.6 3.5-5.0 [facility] [id number] 09:15:00 Test Item Value Reference Range Interpretation Comments ALT (test code = ALT) 10 See_Comment [Auto mated message] The system which ge nerated this result transmit sarah reference range : <=65. The reference range was not used to interpr et this result as felicitas l/abnormal. [facility] [id number] 09:15:00 Test Item Value Reference Range Interpretation Comments AST (test code = AST) 5 See_Comment [Auto mated message] The system which ge nerated this result transmit sarah reference range : <=37. The reference range was not used to interpr et this result as felicitas l/abnormal. [facility] [id number] 09:15:00 Test Item Value Reference Range Interpretation Comments Alk Phos (test code = Alk Phos) 68 39-136 [facility] [id number] 09:15:00 Test Item Value Reference Range Interpretation Comments Bili Total (test code = Bili Total) 0.2 0.2-1.3 [place] 853501-08-20 09:15:00 Test Item Value Reference Range Interpretation Comments AGAP (test code = AGAP) 5.5 10.0-20.0 [facility] [id number] 09:15:00 Test Item Value Reference Range Interpretation Comments B/C Ratio (test code = B/C Ratio) 16 1 6-25 [facility]2021-08-20 09:15:00 Test Item Value Reference Range Interpretation Comments Globulin (test code = Globulin) 2.9 2.7-4.2 [facility]2021-08-20 09:15:00 Test Item Value Reference Range Interpretation Comments A/G Ratio (test code = A/G Ratio) 0.9 1 0.7-1.6 [facility]2021-08-20 09:15:00 Test Item Value Reference Range Interpretation Comments eGFR (test code = eGFR) 94 [facility] [employer] [id number] 09:15:00 Test Item Value Reference Range Interpretation Comments ABO/Rh (test code = ABO/Rh) A POS [facility] [place] [id number] 09:15:00 Test Item Value Reference Range Interpretation Comments Antibody Scrn (test Negative (02/10/21 4:15 code = Antibody Scrn) AM) [employer] [id number] 09:15:00 Test Item Value Reference Range Interpretation Comments Glucose Lvl (test code = Glucose Lvl) 105 70-99 [facility]2021-08-20 09:15:00 Test Item Value Reference Range Interpretation Comments BUN (test code = BUN) 10 7-22 [employer] [id number] 09:15:00 Test Item Value Reference Range Interpretation Comments Creatinine Lvl (test code = Creatinine 0.61 0.50-1.40 Lvl) [facility]2021-08-20 09:15:00 Test Item Value Reference Range Interpretation Comments Sodium Lvl (test code = Sodium Lvl) 143 135-145 [facility]2021-08-20 09:15:00 Test Item Value Reference Range Interpretation Comments Potassium Lvl (test code = Potassium 3.5 3.5-5.1 Lvl) [facility]2021-08-20 09:15:00 Test Item Value Reference Range Interpretation Comments Chloride Lvl (test code = Chloride Lvl) 116 95-109 [facility]2021-08-20 09:15:00 Test Item Value Reference Range Interpretation Comments CO2 (test code = CO2) 25 24-32 [facility] [id number] 09:15:00 Test Item Value Reference Range Interpretation Comments Calcium Lvl (test code = Calcium Lvl) 8.6 8.5-10.5 [facility] [id number] 09:15:00 Test Item Value Reference Range Interpretation Comments Total Protein (test code = Total 5.5 6.4-8.4 Protein) [facility] [id number] 09:15:00 Test Item Value Reference Range Interpretation Comments Albumin Lvl (test code = Albumin Lvl) 2.6 3.5-5.0 [facility] [id number] 09:15:00 Test Item Value Reference Range Interpretation Comments ALT (test code = ALT) 10 See_Comment [Auto mated message] The system which ge nerated this result transmit sarah reference range : <=65. The reference range was not used to interpr et this result as felicitas l/abnormal. [facility] [id number] 09:15:00 Test Item Value Reference Range Interpretation Comments AST (test code = AST) 5 See_Comment [Auto mated message] The system which ge nerated this result transmit sarah reference range : <=37. The reference range was not used to interpr et this result as felicitas l/abnormal. [facility] [employer] [id number] 09:15:00 Test Item Value Reference Range Interpretation Comments Alk Phos (test code = Alk Phos) 68 39-136 [facility] [id number] 09:15:00 Test Item Value Reference Range Interpretation Comments Bili Total (test code = Bili Total) 0.2 0.2-1.3 [facility] [id number] 09:15:00 Test Item Value Reference Range Interpretation Comments AGAP (test code = AGAP) 5.5 10.0-20.0 [facility] [employer] [id number] 09:15:00 Test Item Value Reference Range Interpretation Comments B/C Ratio (test code = B/C Ratio) 16 1 6-25 [facility] [id number] 09:15:00 Test Item Value Reference Range Interpretation Comments Globulin (test code = Globulin) 2.9 2.7-4.2 [facility] [employer] [id number] 09:15:00 Test Item Value Reference Range Interpretation Comments A/G Ratio (test code = A/G Ratio) 0.9 1 0.7-1.6 [facility] [employer] [id number] 09:15:00 Test Item Value Reference Range Interpretation Comments eGFR (test code = eGFR) 94 [facility] [employer] [id number] 09:15:00 Test Item Value Reference Range Interpretation Comments ABO/Rh (test code = ABO/Rh) A POS [facility] [employer] [id number] 09:15:00 Test Item Value Reference Range Interpretation Comments Antibody Scrn (test Negative (02/10/21 4:15 code = Antibody Scrn) AM) [facility] [employer] [id number] 09:15:00 Test Item Value Reference Range Interpretation Comments Glucose Lvl (test code = Glucose Lvl) 105 70-99 [facility] [employer] [id number] 09:15:00 Test Item Value Reference Range Interpretation Comments BUN (test code = BUN) 10 7-22 [facility] [employer] [id number] 09:15:00 Test Item Value Reference Range Interpretation Comments Creatinine Lvl (test code = Creatinine 0.61 0.50-1.40 Lvl) [facility] [employer] [id number] 09:15:00 Test Item Value Reference Range Interpretation Comments Sodium Lvl (test code = Sodium Lvl) 143 135-145 [facility] [employer] [id number] 09:15:00 Test Item Value Reference Range Interpretation Comments Potassium Lvl (test code = Potassium 3.5 3.5-5.1 Lvl) [facility] [employer] [id number] 09:15:00 Test Item Value Reference Range Interpretation Comments Chloride Lvl (test code = Chloride Lvl) 116 95-109 [facility] [employer] [id number] 09:15:00 Test Item Value Reference Range Interpretation Comments CO2 (test code = CO2) 25 24-32 [facility] [employer] [id number] 09:15:00 Test Item Value Reference Range Interpretation Comments Calcium Lvl (test code = Calcium Lvl) 8.6 8.5-10.5 [facility] [employer] [id number] 09:15:00 Test Item Value Reference Range Interpretation Comments Total Protein (test code = Total 5.5 6.4-8.4 Protein) [facility] [id number] 09:15:00 Test Item Value Reference Range Interpretation Comments Albumin Lvl (test code = Albumin Lvl) 2.6 3.5-5.0 [facility] [id number] 09:15:00 Test Item Value Reference Range Interpretation Comments ALT (test code = ALT) 10 See_Comment [Auto mated message] The system which ge nerated this result transmit sarah reference range : <=65. The reference range was not used to interpr et this result as felicitas l/abnormal. [facility] [id number] 09:15:00 Test Item Value Reference Range Interpretation Comments AST (test code = AST) 5 See_Comment [Auto mated message] The system which ge nerated this result transmit sarah reference range : <=37. The reference range was not used to interpr et this result as felicitas l/abnormal. [facility] [id number] 09:15:00 Test Item Value Reference Range Interpretation Comments Alk Phos (test code = Alk Phos) 68 39-136 [facility] [id number] 09:15:00 Test Item Value Reference Range Interpretation Comments Bili Total (test code = Bili Total) 0.2 0.2-1.3 [facility] [id number] 09:15:00 Test Item Value Reference Range Interpretation Comments AGAP (test code = AGAP) 5.5 10.0-20.0 [facility] [id number] 09:15:00 Test Item Value Reference Range Interpretation Comments B/C Ratio (test code = B/C Ratio) 16 1 6-25 [facility] [id number] 09:15:00 Test Item Value Reference Range Interpretation Comments Globulin (test code = Globulin) 2.9 2.7-4.2 [facility] [id number] 09:15:00 Test Item Value Reference Range Interpretation Comments A/G Ratio (test code = A/G Ratio) 0.9 1 0.7-1.6 [facility] [id number] 09:15:00 Test Item Value Reference Range Interpretation Comments eGFR (test code = eGFR) 94 [facility] [id number] 09:15:00 Test Item Value Reference Range Interpretation Comments ABO/Rh (test code = ABO/Rh) A POS [facility] [id number] 09:15:00 Test Item Value Reference Range Interpretation Comments Antibody Scrn (test Negative (02/10/21 4:15 code = Antibody Scrn) AM) [facility]2021-08-20 09:15:00 Test Item Value Reference Range Interpretation Comments Glucose Lvl (test code = Glucose Lvl) 105 70-99 [facility]2021-08-20 09:15:00 Test Item Value Reference Range Interpretation Comments BUN (test code = BUN) 10 7-22 [facility]2021-08-20 09:15:00 Test Item Value Reference Range Interpretation Comments Creatinine Lvl (test code = Creatinine 0.61 0.50-1.40 Lvl) [facility]2021-08-20 09:15:00 Test Item Value Reference Range Interpretation Comments Sodium Lvl (test code = Sodium Lvl) 143 135-145 [facility] [id number] 09:15:00 Test Item Value Reference Range Interpretation Comments Potassium Lvl (test code = Potassium 3.5 3.5-5.1 Lvl) [facility] [id number] 09:15:00 Test Item Value Reference Range Interpretation Comments Chloride Lvl (test code = Chloride Lvl) 116 95-109 [facility] [id number] 09:15:00 Test Item Value Reference Range Interpretation Comments CO2 (test code = CO2) 25 24-32 [facility] [id number] 09:15:00 Test Item Value Reference Range Interpretation Comments Calcium Lvl (test code = Calcium Lvl) 8.6 8.5-10.5 [facility] [id number] 09:15:00 Test Item Value Reference Range Interpretation Comments Total Protein (test code = Total 5.5 6.4-8.4 Protein) [facility]2021-08-20 09:15:00 Test Item Value Reference Range Interpretation Comments Albumin Lvl (test code = Albumin Lvl) 2.6 3.5-5.0 [facility] [id number] 09:15:00 Test Item Value Reference Range Interpretation Comments ALT (test code = ALT) 10 See_Comment [Auto mated message] The system which ge nerated this result transmit sarah reference range : <=65. The reference range was not used to interpr et this result as felicitas l/abnormal. [facility]2021-08-20 09:15:00 Test Item Value Reference Range Interpretation Comments AST (test code = AST) 5 See_Comment [Auto mated message] The system which ge nerated this result transmit sarah reference range : <=37. The reference range was not used to interpr et this result as felicitas l/abnormal. [facility]2021-08-20 09:15:00 Test Item Value Reference Range Interpretation Comments Alk Phos (test code = Alk Phos) 68 39-136 [facility] [employer]2021-08-20 09:15:00 Test Item Value Reference Range Interpretation Comments Bili Total (test code = Bili Total) 0.2 0.2-1.3 [facility]2021-08-20 09:15:00 Test Item Value Reference Range Interpretation Comments AGAP (test code = AGAP) 5.5 10.0-20.0 [facility]2021-08-20 09:15:00 Test Item Value Reference Range Interpretation Comments B/C Ratio (test code = B/C Ratio) 16 1 6-25 [facility]2021-08-20 09:15:00 Test Item Value Reference Range Interpretation Comments Globulin (test code = Globulin) 2.9 2.7-4.2 [facility]2021-08-20 09:15:00 Test Item Value Reference Range Interpretation Comments A/G Ratio (test code = A/G Ratio) 0.9 1 0.7-1.6 [facility]2021-08-20 09:15:00 Test Item Value Reference Range Interpretation Comments eGFR (test code = eGFR) 94 [facility] [employer] [id number] 09:15:00 Test Item Value Reference Range Interpretation Comments ABO/Rh (test code = ABO/Rh) A POS [facility] [employer] [id number] 09:15:00 Test Item Value Reference Range Interpretation Comments Antibody Scrn (test Negative (02/10/21 4:15 code = Antibody Scrn) AM) [facility]2021-08-20 09:15:00 Test Item Value Reference Range Interpretation Comments Glucose Lvl (test code = Glucose Lvl) 105 70-99 [place] 853501-08-20 09:15:00 Test Item Value Reference Range Interpretation Comments BUN (test code = BUN) 10 7-22 [place] [id number] 09:15:00 Test Item Value Reference Range Interpretation Comments Creatinine Lvl (test code = Creatinine 0.61 0.50-1.40 Lvl) [place] [id number] 09:15:00 Test Item Value Reference Range Interpretation Comments Sodium Lvl (test code = Sodium Lvl) 143 135-145 [place] 853501-08-20 09:15:00 Test Item Value Reference Range Interpretation Comments Potassium Lvl (test code = Potassium 3.5 3.5-5.1 Lvl) [place] 853501-08-20 09:15:00 Test Item Value Reference Range Interpretation Comments Chloride Lvl (test code = Chloride Lvl) 116 95-109 [place] 853501-08-20 09:15:00 Test Item Value Reference Range Interpretation Comments CO2 (test code = CO2) 25 24-32 [place] 853501-08-20 09:15:00 Test Item Value Reference Range Interpretation Comments Calcium Lvl (test code = Calcium Lvl) 8.6 8.5-10.5 [place] 853501-08-20 09:15:00 Test Item Value Reference Range Interpretation Comments Total Protein (test code = Total 5.5 6.4-8.4 Protein) [place] 853501-08-20 09:15:00 Test Item Value Reference Range Interpretation Comments Albumin Lvl (test code = Albumin Lvl) 2.6 3.5-5.0 [place] 853501-08-20 09:15:00 Test Item Value Reference Range Interpretation Comments ALT (test code = ALT) 10 See_Comment [Auto mated message] The system which ge nerated this result transmit sarah reference range : <=65. The reference range was not used to interpr et this result as felicitas l/abnormal. [place] 853501-08-20 09:15:00 Test Item Value Reference Range Interpretation Comments AST (test code = AST) 5 See_Comment [Auto mated message] The system which ge nerated this result transmit sarah reference range : <=37. The reference range was not used to interpr et this result as felicitas l/abnormal. [facility] [employer] [id number] 09:15:00 Test Item Value Reference Range Interpretation Comments Alk Phos (test code = Alk Phos) 68 39-136 [facility] [employer] [id number] 09:15:00 Test Item Value Reference Range Interpretation Comments Bili Total (test code = Bili Total) 0.2 0.2-1.3 [facility] [employer] [id number] 09:15:00 Test Item Value Reference Range Interpretation Comments AGAP (test code = AGAP) 5.5 10.0-20.0 [facility] [employer] [id number] 09:15:00 Test Item Value Reference Range Interpretation Comments B/C Ratio (test code = B/C Ratio) 16 1 6-25 [facility] [employer] [id number] 09:15:00 Test Item Value Reference Range Interpretation Comments Globulin (test code = Globulin) 2.9 2.7-4.2 [facility] [employer] [id number] 09:15:00 Test Item Value Reference Range Interpretation Comments A/G Ratio (test code = A/G Ratio) 0.9 1 0.7-1.6 [facility] [employer] [id number] 09:15:00 Test Item Value Reference Range Interpretation Comments eGFR (test code = eGFR) 94 [facility] [employer] [id number] 09:15:00 Test Item Value Reference Range Interpretation Comments ABO/Rh (test code = ABO/Rh) A POS [facility] [employer] [id number] 09:15:00 Test Item Value Reference Range Interpretation Comments Antibody Scrn (test Negative (02/10/21 4:15 code = Antibody Scrn) AM) [facility] [employer] [id number] 09:15:00 Test Item Value Reference Range Interpretation Comments Glucose Lvl (test code = Glucose Lvl) 105 70-99 [facility] [employer] [id number] 09:15:00 Test Item Value Reference Range Interpretation Comments BUN (test code = BUN) 10 7-22 [facility] [employer] [id number] 09:15:00 Test Item Value Reference Range Interpretation Comments Creatinine Lvl (test code = Creatinine 0.61 0.50-1.40 Lvl) [place] 853501-08-20 09:15:00 Test Item Value Reference Range Interpretation Comments Sodium Lvl (test code = Sodium Lvl) 143 135-145 [place] 853501-08-20 09:15:00 Test Item Value Reference Range Interpretation Comments Potassium Lvl (test code = Potassium 3.5 3.5-5.1 Lvl) [place] 853501-08-20 09:15:00 Test Item Value Reference Range Interpretation Comments Chloride Lvl (test code = Chloride Lvl) 116 95-109 [place] 853501-08-20 09:15:00 Test Item Value Reference Range Interpretation Comments CO2 (test code = CO2) 25 24-32 [place] 853501-08-20 09:15:00 Test Item Value Reference Range Interpretation Comments Calcium Lvl (test code = Calcium Lvl) 8.6 8.5-10.5 [place] 853501-08-20 09:15:00 Test Item Value Reference Range Interpretation Comments Total Protein (test code = Total 5.5 6.4-8.4 Protein) [place] 853501-08-20 09:15:00 Test Item Value Reference Range Interpretation Comments Albumin Lvl (test code = Albumin Lvl) 2.6 3.5-5.0 [place] 853501-08-20 09:15:00 Test Item Value Reference Range Interpretation Comments ALT (test code = ALT) 10 See_Comment [Auto mated message] The system which nerated this result transmit sarah reference range : <=65. The reference range was not used to interpr et this result as felicitas l/abnormal. [place] 853501-08-20 09:15:00 Test Item Value Reference Range Interpretation Comments AST (test code = AST) 5 See_Comment [Auto mated message] The system which [employer] nerated this result transmit sarah reference range : <=37. The reference range was not used to interpr et this result as felicitas l/abnormal. [place] 853501-08-20 09:15:00 Test Item Value Reference Range Interpretation Comments Alk Phos (test code = Alk Phos) 68 39-136 [place] 61190-08-20 09:15:00 Test Item Value Reference Range Interpretation Comments Bili Total (test code = Bili Total) 0.2 0.2-1.3 [employer] [id number] 09:15:00 Test Item Value Reference Range Interpretation Comments AGAP (test code = AGAP) 5.5 10.0-20.0 [employer] [id number] 09:15:00 Test Item Value Reference Range Interpretation Comments B/C Ratio (test code = B/C Ratio) 16 1 6-25 [employer] [id number] 09:15:00 Test Item Value Reference Range Interpretation Comments Globulin (test code = Globulin) 2.9 2.7-4.2 [facility]2021-08-20 09:15:00 Test Item Value Reference Range Interpretation Comments A/G Ratio (test code = A/G Ratio) 0.9 1 0.7-1.6 [facility] [employer] [id number] 09:15:00 Test Item Value Reference Range Interpretation Comments eGFR (test code = eGFR) 94 [facility] [employer] [id number] 09:15:00 Test Item Value Reference Range Interpretation Comments ABO/Rh (test code = ABO/Rh) A POS [facility] [place] [id number] 09:15:00 Test Item Value Reference Range Interpretation Comments Antibody Scrn (test Negative (02/10/21 4:15 code = Antibody Scrn) AM) [facility] [employer] [id number] 09:15:00 Test Item Value Reference Range Interpretation Comments Glucose Lvl (test code = Glucose Lvl) 105 70-99 [facility] [employer] [id number] 09:15:00 Test Item Value Reference Range Interpretation Comments BUN (test code = BUN) 10 7-22 [employer] [id number] 09:15:00 Test Item Value Reference Range Interpretation Comments Creatinine Lvl (test code = Creatinine 0.61 0.50-1.40 Lvl) [employer] [id number] 09:15:00 Test Item Value Reference Range Interpretation Comments Sodium Lvl (test code = Sodium Lvl) 143 135-145 [employer] [id number] 09:15:00 Test Item Value Reference Range Interpretation Comments Potassium Lvl (test code = Potassium 3.5 3.5-5.1 Lvl) [facility] [id number] 09:15:00 Test Item Value Reference Range Interpretation Comments Chloride Lvl (test code = Chloride Lvl) 116 95-109 [facility] [id number] 09:15:00 Test Item Value Reference Range Interpretation Comments CO2 (test code = CO2) 25 24-32 [facility] [id number] 09:15:00 Test Item Value Reference Range Interpretation Comments Calcium Lvl (test code = Calcium Lvl) 8.6 8.5-10.5 [facility] [id number] 09:15:00 Test Item Value Reference Range Interpretation Comments Total Protein (test code = Total 5.5 6.4-8.4 Protein) [facility] [id number] 09:15:00 Test Item Value Reference Range Interpretation Comments Albumin Lvl (test code = Albumin Lvl) 2.6 3.5-5.0 [facility] [id number] 09:15:00 Test Item Value Reference Range Interpretation Comments ALT (test code = ALT) 10 See_Comment [Auto mated message] The system which ge nerated this result transmit sarah reference range : <=65. The reference range was not used to interpr et this result as felicitas l/abnormal. [facility] [id number] 09:15:00 Test Item Value Reference Range Interpretation Comments AST (test code = AST) 5 See_Comment [Auto mated message] The system which ge nerated this result transmit sarah reference range : <=37. The reference range was not used to interpr et this result as felicitas l/abnormal. [facility] [id number] 09:15:00 Test Item Value Reference Range Interpretation Comments Alk Phos (test code = Alk Phos) 68 39-136 [facility] [id number] 09:15:00 Test Item Value Reference Range Interpretation Comments Bili Total (test code = Bili Total) 0.2 0.2-1.3 [facility] [id number] 09:15:00 Test Item Value Reference Range Interpretation Comments AGAP (test code = AGAP) 5.5 10.0-20.0 [facility] [id number] 09:15:00 Test Item Value Reference Range Interpretation Comments B/C Ratio (test code = B/C Ratio) 16 1 6-25 [facility] [id number] 09:15:00 Test Item Value Reference Range Interpretation Comments Globulin (test code = Globulin) 2.9 2.7-4.2 [facility] [id number] 09:15:00 Test Item Value Reference Range Interpretation Comments A/G Ratio (test code = A/G Ratio) 0.9 1 0.7-1.6 [facility] [employer] [id number] 09:15:00 Test Item Value Reference Range Interpretation Comments eGFR (test code = eGFR) 94 [facility] [employer] [id number] 09:15:00 Test Item Value Reference Range Interpretation Comments ABO/Rh (test code = ABO/Rh) A POS [facility] [employer] [id number] 09:15:00 Test Item Value Reference Range Interpretation Comments Antibody Scrn (test Negative (02/10/21 4:15 code = Antibody Scrn) AM) [facility] [employer] [id number] 09:15:00 Test Item Value Reference Range Interpretation Comments Glucose Lvl (test code = Glucose Lvl) 105 70-99 [facility] [id number] 09:15:00 Test Item Value Reference Range Interpretation Comments BUN (test code = BUN) 10 7-22 [employer] [id number] 09:15:00 Test Item Value Reference Range Interpretation Comments Creatinine Lvl (test code = Creatinine 0.61 0.50-1.40 Lvl) [employer] [id number] 09:15:00 Test Item Value Reference Range Interpretation Comments Sodium Lvl (test code = Sodium Lvl) 143 135-145 [facility]2021-08-20 09:15:00 Test Item Value Reference Range Interpretation Comments Potassium Lvl (test code = Potassium 3.5 3.5-5.1 Lvl) [facility]2021-08-20 09:15:00 Test Item Value Reference Range Interpretation Comments Chloride Lvl (test code = Chloride Lvl) 116 95-109 [facility]2021-08-20 09:15:00 Test Item Value Reference Range Interpretation Comments CO2 (test code = CO2) 25 24-32 [facility] [id number] 09:15:00 Test Item Value Reference Range Interpretation Comments Calcium Lvl (test code = Calcium Lvl) 8.6 8.5-10.5 [facility] [id number] 09:15:00 Test Item Value Reference Range Interpretation Comments Total Protein (test code = Total 5.5 6.4-8.4 Protein) [facility] [id number] 09:15:00 Test Item Value Reference Range Interpretation Comments Albumin Lvl (test code = Albumin Lvl) 2.6 3.5-5.0 [facility] [employer] [id number] 09:15:00 Test Item Value Reference Range Interpretation Comments ALT (test code = ALT) 10 See_Comment [Auto mated message] The system which ge nerated this result transmit sarah reference range : <=65. The reference range was not used to interpr et this result as felicitas l/abnormal. [facility] [id number] 09:15:00 Test Item Value Reference Range Interpretation Comments AST (test code = AST) 5 See_Comment [Auto mated message] The system which ge nerated this result transmit sarah reference range : <=37. The reference range was not used to interpr et this result as felicitas l/abnormal. [facility] [employer] [id number] 09:15:00 Test Item Value Reference Range Interpretation Comments Alk Phos (test code = Alk Phos) 68 39-136 [facility] [employer] [id number] 09:15:00 Test Item Value Reference Range Interpretation Comments Bili Total (test code = Bili Total) 0.2 0.2-1.3 [facility] [employer] [id number] 09:15:00 Test Item Value Reference Range Interpretation Comments AGAP (test code = AGAP) 5.5 10.0-20.0 [facility] [employer] [id number] 09:15:00 Test Item Value Reference Range Interpretation Comments B/C Ratio (test code = B/C Ratio) 16 1 6-25 [facility] [employer] [id number] 09:15:00 Test Item Value Reference Range Interpretation Comments Globulin (test code = Globulin) 2.9 2.7-4.2 [facility] [employer] [id number] 09:15:00 Test Item Value Reference Range Interpretation Comments A/G Ratio (test code = A/G Ratio) 0.9 1 0.7-1.6 [facility] [employer] [id number] 09:15:00 Test Item Value Reference Range Interpretation Comments eGFR (test code = eGFR) 94 [facility] [employer] [id number] 09:15:00 Test Item Value Reference Range Interpretation Comments ABO/Rh (test code = ABO/Rh) A POS [facility] [employer] [id number] 09:15:00 Test Item Value Reference Range Interpretation Comments Antibody Scrn (test Negative (02/10/21 4:15 code = Antibody Scrn) AM) [facility] [employer] [id number] 09:15:00 Test Item Value Reference Range Interpretation Comments Glucose Lvl (test code = Glucose Lvl) 105 70-99 [facility] [employer] [id number] 09:15:00 Test Item Value Reference Range Interpretation Comments ABO/Rh (test code = ABO/Rh) A POS [facility] [employer] [id number] 09:15:00 Test Item Value Reference Range Interpretation Comments Antibody Scrn (test Negative (02/10/21 4:15 code = Antibody Scrn) AM) [facility] [employer] [id number] 09:15:00 Test Item Value Reference Range Interpretation Comments Glucose Lvl (test code = Glucose Lvl) 105 70-99 [facility] [id number] 09:15:00 Test Item Value Reference Range Interpretation Comments BUN (test code = BUN) 01-12 [employer] [id number] 09:15:00 Test Item Value Reference Range Interpretation Comments Creatinine Lvl (test code = Creatinine 0.61 0.50-1.40 Lvl) [facility] [employer] [id number] 09:15:00 Test Item Value Reference Range Interpretation Comments BUN (test code = BUN) 10 01-12 [employer] [id number] 09:15:00 Test Item Value Reference Range Interpretation Comments Sodium Lvl (test code = Sodium Lvl) 143 135-145 [facility] [employer] [id number] 09:15:00 Test Item Value Reference Range Interpretation Comments Potassium Lvl (test code = Potassium 3.5 3.5-5.1 Lvl) [facility] [id number] 09:15:00 Test Item Value Reference Range Interpretation Comments Chloride Lvl (test code = Chloride Lvl) 116 95-109 [facility] [id number] 09:15:00 Test Item Value Reference Range Interpretation Comments CO2 (test code = CO2) 25 24-32 [facility] [id number] 09:15:00 Test Item Value Reference Range Interpretation Comments Calcium Lvl (test code = Calcium Lvl) 8.6 8.5-10.5 [facility] [id number] 09:15:00 Test Item Value Reference Range Interpretation Comments Total Protein (test code = Total 5.5 6.4-8.4 Protein) [facility] [id number] 09:15:00 Test Item Value Reference Range Interpretation Comments Albumin Lvl (test code = Albumin Lvl) 2.6 3.5-5.0 [facility] [id number] 09:15:00 Test Item Value Reference Range Interpretation Comments ALT (test code = ALT) 10 See_Comment [Auto mated message] The system which ge nerated this result transmit sarah reference range : <=65. The reference range was not used to interpr et this result as felicitas l/abnormal. [facility] [id number] 09:15:00 Test Item Value Reference Range Interpretation Comments AST (test code = AST) 5 See_Comment [Auto mated message] The system which ge nerated this result transmit sarah reference range : <=37. The reference range was not used to interpr et this result as felicitas l/abnormal. [facility] [id number] 09:15:00 Test Item Value Reference Range Interpretation Comments Alk Phos (test code = Alk Phos) 68 39-136 [facility] [id number] 09:15:00 Test Item Value Reference Range Interpretation Comments Creatinine Lvl (test code = Creatinine 0.61 0.50-1.40 Lvl) [facility] [id number] 09:15:00 Test Item Value Reference Range Interpretation Comments Bili Total (test code = Bili Total) 0.2 0.2-1.3 [place] 853501-08-20 09:15:00 Test Item Value Reference Range Interpretation Comments AGAP (test code = AGAP) 5.5 10.0-20.0 [place] 853501-08-20 09:15:00 Test Item Value Reference Range Interpretation Comments B/C Ratio (test code = B/C Ratio) 16 1 6-25 [place] 853501-08-20 09:15:00 Test Item Value Reference Range Interpretation Comments Globulin (test code = Globulin) 2.9 2.7-4.2 [place] 853501-08-20 09:15:00 Test Item Value Reference Range Interpretation Comments A/G Ratio (test code = A/G Ratio) 0.9 1 0.7-1.6 [place] 853501-08-20 09:15:00 Test Item Value Reference Range Interpretation Comments eGFR (test code = eGFR) 94 [place] 853501-08-20 09:15:00 Test Item Value Reference Range Interpretation Comments Sodium Lvl (test code = Sodium Lvl) 143 135-145 [place] 853501-08-20 09:15:00 Test Item Value Reference Range Interpretation Comments Potassium Lvl (test code = Potassium 3.5 3.5-5.1 Lvl) [place] 853501-08-20 09:15:00 Test Item Value Reference Range Interpretation Comments Chloride Lvl (test code = Chloride Lvl) 116 95-109 [place] 853501-08-20 09:15:00 Test Item Value Reference Range Interpretation Comments CO2 (test code = CO2) 25 24-32 [place] 853501-08-20 09:15:00 Test Item Value Reference Range Interpretation Comments Calcium Lvl (test code = Calcium Lvl) 8.6 8.5-10.5 [place] 853501-08-20 09:15:00 Test Item Value Reference Range Interpretation Comments Total Protein (test code = Total 5.5 6.4-8.4 Protein) [place] 853501-08-20 09:15:00 Test Item Value Reference Range Interpretation Comments Albumin Lvl (test code = Albumin Lvl) 2.6 3.5-5.0 [place] 853501-08-20 09:15:00 Test Item Value Reference Range Interpretation Comments ALT (test code = ALT) 10 See_Comment [Auto mated message] The system which ge nerated this result transmit sarah reference range : <=65. The reference range was not used to interpr et this result as felicitas l/abnormal. [facility] [employer] [id number] 09:15:00 Test Item Value Reference Range Interpretation Comments AST (test code = AST) 5 See_Comment [Auto mated message] The system which ge nerated this result transmit sarah reference range : <=37. The reference range was not used to interpr et this result as felicitas l/abnormal. [facility] [employer] [id number] 09:15:00 Test Item Value Reference Range Interpretation Comments Alk Phos (test code = Alk Phos) 68 39-136 [facility] [employer] [id number] 09:15:00 Test Item Value Reference Range Interpretation Comments Bili Total (test code = Bili Total) 0.2 0.2-1.3 [facility] [id number] 09:15:00 Test Item Value Reference Range Interpretation Comments AGAP (test code = AGAP) 5.5 10.0-20.0 [facility] [employer] [id number] 09:15:00 Test Item Value Reference Range Interpretation Comments B/C Ratio (test code = B/C Ratio) 16 1 6-25 [facility] [id number] 09:15:00 Test Item Value Reference Range Interpretation Comments Globulin (test code = Globulin) 2.9 2.7-4.2 [facility] [employer] [id number] 09:15:00 Test Item Value Reference Range Interpretation Comments A/G Ratio (test code = A/G Ratio) 0.9 1 0.7-1.6 [facility] [employer] [id number] 09:15:00 Test Item Value Reference Range Interpretation Comments eGFR (test code = eGFR) 94 [facility] [employer] [id number] 09:15:00 Test Item Value Reference Range Interpretation Comments ABO/Rh (test code = ABO/Rh) A POS [facility] [employer] [id number] 09:15:00 Test Item Value Reference Range Interpretation Comments Antibody Scrn (test Negative (02/10/21 4:15 code = Antibody Scrn) AM) [place] 853501-08-20 09:15:00 Test Item Value Reference Range Interpretation Comments Glucose Lvl (test code = Glucose Lvl) 105 70-99 [place] 853501-08-20 09:15:00 Test Item Value Reference Range Interpretation Comments BUN (test code = BUN) 10 7-22 [place] 853501-08-20 09:15:00 Test Item Value Reference Range Interpretation Comments Creatinine Lvl (test code = Creatinine 0.61 0.50-1.40 Lvl) [place] 853501-08-20 09:15:00 Test Item Value Reference Range Interpretation Comments Sodium Lvl (test code = Sodium Lvl) 143 135-145 [place] 853501-08-20 09:15:00 Test Item Value Reference Range Interpretation Comments Potassium Lvl (test code = Potassium 3.5 3.5-5.1 Lvl) [place] 853501-08-20 09:15:00 Test Item Value Reference Range Interpretation Comments Chloride Lvl (test code = Chloride Lvl) 116 95-109 [place] 853501-08-20 09:15:00 Test Item Value Reference Range Interpretation Comments CO2 (test code = CO2) 25 24-32 [place] 853501-08-20 09:15:00 Test Item Value Reference Range Interpretation Comments Calcium Lvl (test code = Calcium Lvl) 8.6 8.5-10.5 [place] 853501-08-20 09:15:00 Test Item Value Reference Range Interpretation Comments Total Protein (test code = Total 5.5 6.4-8.4 Protein) [place] 853501-08-20 09:15:00 Test Item Value Reference Range Interpretation Comments Albumin Lvl (test code = Albumin Lvl) 2.6 3.5-5.0 [place] 853501-08-20 09:15:00 Test Item Value Reference Range Interpretation Comments ALT (test code = ALT) 10 See_Comment [Auto mated message] The system which ge nerated this result transmit sarah reference range : <=65. The reference range was not used to interpr et this result as felicitas l/abnormal. [place] 853501-08-20 09:15:00 Test Item Value Reference Range Interpretation Comments AST (test code = AST) 5 See_Comment [Auto mated message] The system which ge nerated this result transmit sarah reference range : <=37. The reference range was not used to interpr et this result as felicitas l/abnormal. [facility] [employer] [id number] 09:15:00 Test Item Value Reference Range Interpretation Comments Alk Phos (test code = Alk Phos) 68 39-136 [facility] [employer] [id number] 09:15:00 Test Item Value Reference Range Interpretation Comments Bili Total (test code = Bili Total) 0.2 0.2-1.3 [facility] [employer] [id number] 09:15:00 Test Item Value Reference Range Interpretation Comments AGAP (test code = AGAP) 5.5 10.0-20.0 [facility] [employer] [id number] 09:15:00 Test Item Value Reference Range Interpretation Comments B/C Ratio (test code = B/C Ratio) 16 1 6-25 [facility] [employer] [id number] 09:15:00 Test Item Value Reference Range Interpretation Comments Globulin (test code = Globulin) 2.9 2.7-4.2 [facility] [employer] [id number] 09:15:00 Test Item Value Reference Range Interpretation Comments A/G Ratio (test code = A/G Ratio) 0.9 1 0.7-1.6 [facility] [employer] [id number] 09:15:00 Test Item Value Reference Range Interpretation Comments eGFR (test code = eGFR) 94 [facility] [employer] [id number] 09:15:00 Test Item Value Reference Range Interpretation Comments ABO/Rh (test code = ABO/Rh) A POS [facility] [employer] [id number] 09:15:00 Test Item Value Reference Range Interpretation Comments Antibody Scrn (test Negative (02/10/21 4:15 code = Antibody Scrn) AM) [facility] [employer] [id number] 09:15:00 Test Item Value Reference Range Interpretation Comments Glucose Lvl (test code = Glucose Lvl) 105 70-99 [facility] [employer] [id number] 09:15:00 Test Item Value Reference Range Interpretation Comments BUN (test code = BUN) 10 7-22 [place] 853501-08-20 09:15:00 Test Item Value Reference Range Interpretation Comments Creatinine Lvl (test code = Creatinine 0.61 0.50-1.40 Lvl) [place] [address]-08-20 09:15:00 Test Item Value Reference Range Interpretation Comments Sodium Lvl (test code = Sodium Lvl) 143 135-145 [place] 853501-08-20 09:15:00 Test Item Value Reference Range Interpretation Comments Potassium Lvl (test code = Potassium 3.5 3.5-5.1 Lvl) [place] [address]-08-20 09:15:00 Test Item Value Reference Range Interpretation Comments Chloride Lvl (test code = Chloride Lvl) 116 95-109 [place] 853501-08-20 09:15:00 Test Item Value Reference Range Interpretation Comments CO2 (test code = CO2) 25 24-32 [place] 853501-08-20 09:15:00 Test Item Value Reference Range Interpretation Comments Calcium Lvl (test code = Calcium Lvl) 8.6 8.5-10.5 [place] 853501-08-20 09:15:00 Test Item Value Reference Range Interpretation Comments Total Protein (test code = Total 5.5 6.4-8.4 Protein) [place] [address]-08-20 09:15:00 Test Item Value Reference Range Interpretation Comments Albumin Lvl (test code = Albumin Lvl) 2.6 3.5-5.0 [place] 853501-08-20 09:15:00 Test Item Value Reference Range Interpretation Comments ALT (test code = ALT) 10 See_Comment [Auto mated message] The system which ge nerated this result transmit sarah reference range : <=65. The reference range was not used to interpr et this result as felicitas l/abnormal. [place] [address]-08-20 09:15:00 Test Item Value Reference Range Interpretation Comments AST (test code = AST) 5 See_Comment [Auto mated message] The system which ge nerated this result transmit sarah reference range : <=37. The reference range was not used to interpr et this result as felicitas l/abnormal. [place] 853501-08-20 09:15:00 Test Item Value Reference Range Interpretation Comments Alk Phos (test code = Alk Phos) 68 39-136 [facility] [employer] [id number] 09:15:00 Test Item Value Reference Range Interpretation Comments Bili Total (test code = Bili Total) 0.2 0.2-1.3 [facility] [employer] [id number] 09:15:00 Test Item Value Reference Range Interpretation Comments AGAP (test code = AGAP) 5.5 10.0-20.0 [facility] [employer] [id number] 09:15:00 Test Item Value Reference Range Interpretation Comments B/C Ratio (test code = B/C Ratio) 16 1 6-25 [facility] [employer] [id number] 09:15:00 Test Item Value Reference Range Interpretation Comments Globulin (test code = Globulin) 2.9 2.7-4.2 [facility] [employer] [id number] 09:15:00 Test Item Value Reference Range Interpretation Comments A/G Ratio (test code = A/G Ratio) 0.9 1 0.7-1.6 [facility] [employer] [id number] 09:15:00 Test Item Value Reference Range Interpretation Comments eGFR (test code = eGFR) 94 [facility] [employer] [id number] 09:15:00 Test Item Value Reference Range Interpretation Comments ABO/Rh (test code = ABO/Rh) A POS [facility] [employer] [id number] 09:15:00 Test Item Value Reference Range Interpretation Comments Antibody Scrn (test Negative (02/10/21 4:15 code = Antibody Scrn) AM) [facility] [employer] [id number] 09:15:00 Test Item Value Reference Range Interpretation Comments Glucose Lvl (test code = Glucose Lvl) 105 70-99 [facility] [employer] [id number] 09:15:00 Test Item Value Reference Range Interpretation Comments BUN (test code = BUN) 10 7-22 [facility] [employer] [id number] 09:15:00 Test Item Value Reference Range Interpretation Comments Creatinine Lvl (test code = Creatinine 0.61 0.50-1.40 Lvl) [facility] [employer] [id number] 09:15:00 Test Item Value Reference Range Interpretation Comments Sodium Lvl (test code = Sodium Lvl) 143 135-145 [place] [address]-08-20 09:15:00 Test Item Value Reference Range Interpretation Comments Potassium Lvl (test code = Potassium 3.5 3.5-5.1 Lvl) [address]08-20 09:15:00 Test Item Value Reference Range Interpretation Comments Chloride Lvl (test code = Chloride Lvl) 116 95-109 [place] [address]-08-20 09:15:00 Test Item Value Reference Range Interpretation Comments CO2 (test code = CO2) 25 24-32 [place] [address]-08-20 09:15:00 Test Item Value Reference Range Interpretation Comments Calcium Lvl (test code = Calcium Lvl) 8.6 8.5-10.5 [place] [address]-08-20 09:15:00 Test Item Value Reference Range Interpretation Comments Total Protein (test code = Total 5.5 6.4-8.4 Protein) [address]08-20 09:15:00 Test Item Value Reference Range Interpretation Comments Albumin Lvl (test code = Albumin Lvl) 2.6 3.5-5.0 [place] [address]-08-20 09:15:00 Test Item Value Reference Range Interpretation Comments ALT (test code = ALT) 10 See_Comment [Auto mated message] The system which ge nerated this result transmit sarah reference range : <=65. The reference range was not used to interpr et this result as felicitas l/abnormal. [place] [address]-08-20 09:15:00 Test Item Value Reference Range Interpretation Comments AST (test code = AST) 5 See_Comment [Auto mated message] The system which ge nerated this result transmit sarah reference range : <=37. The reference range was not used to interpr et this result as felicitas l/abnormal. [place] [address]-08-20 09:15:00 Test Item Value Reference Range Interpretation Comments Alk Phos (test code = Alk Phos) 68 39-136 [place] 853501-08-20 09:15:00 Test Item Value Reference Range Interpretation Comments Bili Total (test code = Bili Total) 0.2 0.2-1.3 [place] [address]-08-20 09:15:00 Test Item Value Reference Range Interpretation Comments AGAP (test code = AGAP) 5.5 10.0-20.0 [facility] [employer] [id number] 09:15:00 Test Item Value Reference Range Interpretation Comments B/C Ratio (test code = B/C Ratio) 16 1 6-25 [facility] [employer] [id number] 09:15:00 Test Item Value Reference Range Interpretation Comments Globulin (test code = Globulin) 2.9 2.7-4.2 [facility] [employer] [id number] 09:15:00 Test Item Value Reference Range Interpretation Comments A/G Ratio (test code = A/G Ratio) 0.9 1 0.7-1.6 [facility] [employer] [id number] 09:15:00 Test Item Value Reference Range Interpretation Comments eGFR (test code = eGFR) 94 [facility] [employer] [id number] 09:15:00 Test Item Value Reference Range Interpretation Comments ABO/Rh (test code = ABO/Rh) A POS [facility] [employer] [id number] 09:15:00 Test Item Value Reference Range Interpretation Comments Antibody Scrn (test Negative (02/10/21 4:15 code = Antibody Scrn) AM) [facility] [employer] [id number] 09:15:00 Test Item Value Reference Range Interpretation Comments Glucose Lvl (test code = Glucose Lvl) 105 70-99 [facility] [employer] [id number] 09:15:00 Test Item Value Reference Range Interpretation Comments BUN (test code = BUN) 10 7-22 [facility] [employer] [id number] 09:15:00 Test Item Value Reference Range Interpretation Comments Creatinine Lvl (test code = Creatinine 0.61 0.50-1.40 Lvl) [facility] [employer] [id number] 09:15:00 Test Item Value Reference Range Interpretation Comments Sodium Lvl (test code = Sodium Lvl) 143 135-145 [facility] [employer] [id number] 09:15:00 Test Item Value Reference Range Interpretation Comments Potassium Lvl (test code = Potassium 3.5 3.5-5.1 Lvl) [facility] [employer] [id number] 09:15:00 Test Item Value Reference Range Interpretation Comments Chloride Lvl (test code = Chloride Lvl) 116 95-109 [facility] [id number] 09:15:00 Test Item Value Reference Range Interpretation Comments CO2 (test code = CO2) 25 24-32 [place] 853501-08-20 09:15:00 Test Item Value Reference Range Interpretation Comments Calcium Lvl (test code = Calcium Lvl) 8.6 8.5-10.5 [place] 853501-08-20 09:15:00 Test Item Value Reference Range Interpretation Comments Total Protein (test code = Total 5.5 6.4-8.4 Protein) [place] 853501-08-20 09:15:00 Test Item Value Reference Range Interpretation Comments Albumin Lvl (test code = Albumin Lvl) 2.6 3.5-5.0 [facility] [id number] 09:15:00 Test Item Value Reference Range Interpretation Comments ALT (test code = ALT) 10 See_Comment [Auto mated message] The system which ge nerated this result transmit sarah reference range : <=65. The reference range was not used to interpr et this result as felicitas l/abnormal. [facility] [id number] 09:15:00 Test Item Value Reference Range Interpretation Comments AST (test code = AST) 5 See_Comment [Auto mated message] The system which ge nerated this result transmit sarah reference range : <=37. The reference range was not used to interpr et this result as felicitas l/abnormal. [facility] [id number] 09:15:00 Test Item Value Reference Range Interpretation Comments Alk Phos (test code = Alk Phos) 68 39-136 [facility] [id number] 09:15:00 Test Item Value Reference Range Interpretation Comments Bili Total (test code = Bili Total) 0.2 0.2-1.3 [facility] [id number] 09:15:00 Test Item Value Reference Range Interpretation Comments AGAP (test code = AGAP) 5.5 10.0-20.0 [facility] [id number] 09:15:00 Test Item Value Reference Range Interpretation Comments B/C Ratio (test code = B/C Ratio) 16 1 6-25 [facility] [id number] 09:15:00 Test Item Value Reference Range Interpretation Comments Globulin (test code = Globulin) 2.9 2.7-4.2 [facility] [employer] [id number] 09:15:00 Test Item Value Reference Range Interpretation Comments A/G Ratio (test code = A/G Ratio) 0.9 1 0.7-1.6 [facility] [employer] [id number] 09:15:00 Test Item Value Reference Range Interpretation Comments eGFR (test code = eGFR) 94 [facility] [employer] [id number] 09:15:00 Test Item Value Reference Range Interpretation Comments ABO/Rh (test code = ABO/Rh) A POS [facility] [employer] [id number] 09:15:00 Test Item Value Reference Range Interpretation Comments Antibody Scrn (test Negative (02/10/21 4:15 code = Antibody Scrn) AM) [facility] [employer] [id number] 09:15:00 Test Item Value Reference Range Interpretation Comments Glucose Lvl (test code = Glucose Lvl) 105 70-99 [facility] [employer] [id number] 09:15:00 Test Item Value Reference Range Interpretation Comments BUN (test code = BUN) 10 7-22 [facility] [employer] [id number] 09:15:00 Test Item Value Reference Range Interpretation Comments Creatinine Lvl (test code = Creatinine 0.61 0.50-1.40 Lvl) [facility] [employer] [id number] 09:15:00 Test Item Value Reference Range Interpretation Comments Sodium Lvl (test code = Sodium Lvl) 143 135-145 [facility] [employer] [id number] 09:15:00 Test Item Value Reference Range Interpretation Comments Potassium Lvl (test code = Potassium 3.5 3.5-5.1 Lvl) [facility] [employer]2021-08-20 09:15:00 Test Item Value Reference Range Interpretation Comments Chloride Lvl (test code = Chloride Lvl) 116 95-109 [facility] [employer] [id number] 09:15:00 Test Item Value Reference Range Interpretation Comments CO2 (test code = CO2) 25 24-32 [facility] [employer] [id number] 09:15:00 Test Item Value Reference Range Interpretation Comments Calcium Lvl (test code = Calcium Lvl) 8.6 8.5-10.5 [facility] [employer] [id number] 09:15:00 Test Item Value Reference Range Interpretation Comments Total Protein (test code = Total 5.5 6.4-8.4 Protein) [facility] [id number] 09:15:00 Test Item Value Reference Range Interpretation Comments Albumin Lvl (test code = Albumin Lvl) 2.6 3.5-5.0 [facility] [id number] 09:15:00 Test Item Value Reference Range Interpretation Comments ALT (test code = ALT) 10 See_Comment [Auto mated message] The system which ge nerated this result transmit sarah reference range : <=65. The reference range was not used to interpr et this result as felicitas l/abnormal. [facility] [employer] [id number] 09:15:00 Test Item Value Reference Range Interpretation Comments AST (test code = AST) 5 See_Comment [Auto mated message] The system which ge nerated this result transmit sarah reference range : <=37. The reference range was not used to interpr et this result as felicitas l/abnormal. [facility] [employer] [id number] 09:15:00 Test Item Value Reference Range Interpretation Comments Alk Phos (test code = Alk Phos) 68 39-136 [facility] [employer] [id number] 09:15:00 Test Item Value Reference Range Interpretation Comments Bili Total (test code = Bili Total) 0.2 0.2-1.3 [facility] [employer] [id number] 09:15:00 Test Item Value Reference Range Interpretation Comments AGAP (test code = AGAP) 5.5 10.0-20.0 [facility] [employer] [id number] 09:15:00 Test Item Value Reference Range Interpretation Comments B/C Ratio (test code = B/C Ratio) 16 1 6-25 [facility] [employer] [id number] 09:15:00 Test Item Value Reference Range Interpretation Comments Globulin (test code = Globulin) 2.9 2.7-4.2 [facility] [employer] [id number] 09:15:00 Test Item Value Reference Range Interpretation Comments A/G Ratio (test code = A/G Ratio) 0.9 1 0.7-1.6 [facility] [employer] [id number] 09:15:00 Test Item Value Reference Range Interpretation Comments eGFR (test code = eGFR) 94 [facility] [place] [id number] 09:15:00 Test Item Value Reference Range Interpretation Comments ABO/Rh (test code = ABO/Rh) A POS [facility] [employer] [place] [id number] 09:15:00 Test Item Value Reference Range Interpretation Comments Antibody Scrn (test Negative (02/10/21 4:15 code = Antibody Scrn) AM) [facility] [employer] [id number] 09:15:00 Test Item Value Reference Range Interpretation Comments Glucose Lvl (test code = Glucose Lvl) 105 70-99 [facility] [employer] [id number] 09:15:00 Test Item Value Reference Range Interpretation Comments BUN (test code = BUN) 10 7-22 [facility] [employer] [id number] 09:15:00 Test Item Value Reference Range Interpretation Comments Creatinine Lvl (test code = Creatinine 0.61 0.50-1.40 Lvl) [facility] [employer] [id number] 09:15:00 Test Item Value Reference Range Interpretation Comments Sodium Lvl (test code = Sodium Lvl) 143 135-145 [facility] [employer] [id number] 09:15:00 Test Item Value Reference Range Interpretation Comments Potassium Lvl (test code = Potassium 3.5 3.5-5.1 Lvl) [facility] [employer] [id number] 09:15:00 Test Item Value Reference Range Interpretation Comments Chloride Lvl (test code = Chloride Lvl) 116 95-109 [facility] [employer] [id number] 09:15:00 Test Item Value Reference Range Interpretation Comments CO2 (test code = CO2) 25 24-32 [facility] [employer] [id number] 09:15:00 Test Item Value Reference Range Interpretation Comments Calcium Lvl (test code = Calcium Lvl) 8.6 8.5-10.5 [facility] [employer] [id number] 09:15:00 Test Item Value Reference Range Interpretation Comments Total Protein (test code = Total 5.5 6.4-8.4 Protein) [facility] [employer] [id number] 09:15:00 Test Item Value Reference Range Interpretation Comments Albumin Lvl (test code = Albumin Lvl) 2.6 3.5-5.0 [employer]2021-08-20 09:15:00 Test Item Value Reference Range Interpretation Comments ALT (test code = ALT) 10 See_Comment [Auto mated message] The system which ge nerated this result transmit sarah reference range : <=65. The reference range was not used to interpr et this result as felicitas l/abnormal. [employer]2021-08-20 09:15:00 Test Item Value Reference Range Interpretation Comments AST (test code = AST) 5 See_Comment [Auto mated message] The system which ge nerated this result transmit sarah reference range : <=37. The reference range was not used to interpr et this result as felicitas l/abnormal. [facility] [employer]2021-08-20 09:15:00 Test Item Value Reference Range Interpretation Comments Alk Phos (test code = Alk Phos) 68 39-136 [facility] [employer]2021-08-20 09:15:00 Test Item Value Reference Range Interpretation Comments Bili Total (test code = Bili Total) 0.2 0.2-1.3 [facility] [employer]2021-08-20 09:15:00 Test Item Value Reference Range Interpretation Comments AGAP (test code = AGAP) 5.5 10.0-20.0 [facility] [employer]2021-08-20 09:15:00 Test Item Value Reference Range Interpretation Comments B/C Ratio (test code = B/C Ratio) 16 1 6-25 [facility] [employer]2021-08-20 09:15:00 Test Item Value Reference Range Interpretation Comments Globulin (test code = Globulin) 2.9 2.7-4.2 [facility] [employer]2021-08-20 09:15:00 Test Item Value Reference Range Interpretation Comments A/G Ratio (test code = A/G Ratio) 0.9 1 0.7-1.6 [facility] [employer]2021-08-20 09:15:00 Test Item Value Reference Range Interpretation Comments eGFR (test code = eGFR) 94 [facility] [employer] [id number] 09:15:00 Test Item Value Reference Range Interpretation Comments ABO/Rh (test code = ABO/Rh) A POS [facility] [employer] [id number] 09:15:00 Test Item Value Reference Range Interpretation Comments Antibody Scrn (test Negative (02/10/21 4:15 code = Antibody Scrn) AM) [place] 853501-08-20 09:15:00 Test Item Value Reference Range Interpretation Comments Glucose Lvl (test code = Glucose Lvl) 105 70-99 [place] 853501-08-20 09:15:00 Test Item Value Reference Range Interpretation Comments BUN (test code = BUN) 10 7-22 [place] 853501-08-20 09:15:00 Test Item Value Reference Range Interpretation Comments Creatinine Lvl (test code = Creatinine 0.61 0.50-1.40 Lvl) [place] 853501-08-20 09:15:00 Test Item Value Reference Range Interpretation Comments Sodium Lvl (test code = Sodium Lvl) 143 135-145 [place] 853501-08-20 09:15:00 Test Item Value Reference Range Interpretation Comments Potassium Lvl (test code = Potassium 3.5 3.5-5.1 Lvl) [place] 853501-08-20 09:15:00 Test Item Value Reference Range Interpretation Comments Chloride Lvl (test code = Chloride Lvl) 116 95-109 [place] 853501-08-20 09:15:00 Test Item Value Reference Range Interpretation Comments CO2 (test code = CO2) 25 24-32 [place] 853501-08-20 09:15:00 Test Item Value Reference Range Interpretation Comments Calcium Lvl (test code = Calcium Lvl) 8.6 8.5-10.5 [place] 853501-08-20 09:15:00 Test Item Value Reference Range Interpretation Comments Total Protein (test code = Total 5.5 6.4-8.4 Protein) [place] 853501-08-20 09:15:00 Test Item Value Reference Range Interpretation Comments Albumin Lvl (test code = Albumin Lvl) 2.6 3.5-5.0 [place] 853501-08-20 09:15:00 Test Item Value Reference Range Interpretation Comments ALT (test code = ALT) 10 See_Comment [Auto mated message] The system which ge nerated this result transmit sarah reference range : <=65. The reference range was not used to interpr et this result as felicitas l/abnormal. [place] 853501-08-20 09:15:00 Test Item Value Reference Range Interpretation Comments AST (test code = AST) 5 See_Comment [Auto mated message] The system which ge nerated this result transmit sarah reference range : <=37. The reference range was not used to interpr et this result as felicitas l/abnormal. [facility] [employer] [id number] 09:15:00 Test Item Value Reference Range Interpretation Comments Alk Phos (test code = Alk Phos) 68 39-136 [facility] [employer] [id number] 09:15:00 Test Item Value Reference Range Interpretation Comments Bili Total (test code = Bili Total) 0.2 0.2-1.3 [facility] [employer] [id number] 09:15:00 Test Item Value Reference Range Interpretation Comments AGAP (test code = AGAP) 5.5 10.0-20.0 [facility] [employer] [id number] 09:15:00 Test Item Value Reference Range Interpretation Comments B/C Ratio (test code = B/C Ratio) 16 1 6-25 [facility] [employer] [id number] 09:15:00 Test Item Value Reference Range Interpretation Comments Globulin (test code = Globulin) 2.9 2.7-4.2 [facility] [employer] [id number] 09:15:00 Test Item Value Reference Range Interpretation Comments A/G Ratio (test code = A/G Ratio) 0.9 1 0.7-1.6 [facility] [employer] [id number] 09:15:00 Test Item Value Reference Range Interpretation Comments eGFR (test code = eGFR) 94 [facility] [employer] [id number] 09:15:00 Test Item Value Reference Range Interpretation Comments ABO/Rh (test code = ABO/Rh) A POS [facility] [employer] [id number] 09:15:00 Test Item Value Reference Range Interpretation Comments Antibody Scrn (test Negative (02/10/21 4:15 code = Antibody Scrn) AM) [facility] [employer] [id number] 09:15:00 Test Item Value Reference Range Interpretation Comments Glucose Lvl (test code = Glucose Lvl) 105 70-99 [facility] [employer] [id number] 09:15:00 Test Item Value Reference Range Interpretation Comments BUN (test code = BUN) 10 7-22 [place] 853501-08-20 09:15:00 Test Item Value Reference Range Interpretation Comments Creatinine Lvl (test code = Creatinine 0.61 0.50-1.40 Lvl) [place] 853501-08-20 09:15:00 Test Item Value Reference Range Interpretation Comments Sodium Lvl (test code = Sodium Lvl) 143 135-145 [place] 853501-08-20 09:15:00 Test Item Value Reference Range Interpretation Comments Potassium Lvl (test code = Potassium 3.5 3.5-5.1 Lvl) [place] 853501-08-20 09:15:00 Test Item Value Reference Range Interpretation Comments Chloride Lvl (test code = Chloride Lvl) 116 95-109 [place] 853501-08-20 09:15:00 Test Item Value Reference Range Interpretation Comments CO2 (test code = CO2) 25 24-32 [place] 853501-08-20 09:15:00 Test Item Value Reference Range Interpretation Comments Calcium Lvl (test code = Calcium Lvl) 8.6 8.5-10.5 [place] 853501-08-20 09:15:00 Test Item Value Reference Range Interpretation Comments Total Protein (test code = Total 5.5 6.4-8.4 Protein) [place] 853501-08-20 09:15:00 Test Item Value Reference Range Interpretation Comments Albumin Lvl (test code = Albumin Lvl) 2.6 3.5-5.0 [place] 853501-08-20 09:15:00 Test Item Value Reference Range Interpretation Comments ALT (test code = ALT) 10 See_Comment [Auto mated message] The system which ge nerated this result transmit sarah reference range : <=65. The reference range was not used to interpr et this result as felicitas l/abnormal. [place] 853501-08-20 09:15:00 Test Item Value Reference Range Interpretation Comments AST (test code = AST) 5 See_Comment [Auto mated message] The system which ge nerated this result transmit sarah reference range : <=37. The reference range was not used to interpr et this result as felicitas l/abnormal. [place] 853501-08-20 09:15:00 Test Item Value Reference Range Interpretation Comments Alk Phos (test code = Alk Phos) 68 39-136 [facility] [employer] [id number] 09:15:00 Test Item Value Reference Range Interpretation Comments Bili Total (test code = Bili Total) 0.2 0.2-1.3 [facility] [employer] [id number] 09:15:00 Test Item Value Reference Range Interpretation Comments AGAP (test code = AGAP) 5.5 10.0-20.0 [facility] [employer] [id number] 09:15:00 Test Item Value Reference Range Interpretation Comments B/C Ratio (test code = B/C Ratio) 16 1 6-25 [facility] [employer] [id number] 09:15:00 Test Item Value Reference Range Interpretation Comments Globulin (test code = Globulin) 2.9 2.7-4.2 [facility] [employer] [id number] 09:15:00 Test Item Value Reference Range Interpretation Comments A/G Ratio (test code = A/G Ratio) 0.9 1 0.7-1.6 [facility] [employer] [id number] 09:15:00 Test Item Value Reference Range Interpretation Comments eGFR (test code = eGFR) 94 [facility] [employer] [id number] 09:15:00 Test Item Value Reference Range Interpretation Comments ABO/Rh (test code = ABO/Rh) A POS [facility] [employer] [id number] 09:15:00 Test Item Value Reference Range Interpretation Comments Antibody Scrn (test Negative (02/10/21 4:15 code = Antibody Scrn) AM) [facility] [employer] [id number] 09:15:00 Test Item Value Reference Range Interpretation Comments Glucose Lvl (test code = Glucose Lvl) 105 70-99 [facility] [employer] [id number] 09:15:00 Test Item Value Reference Range Interpretation Comments BUN (test code = BUN) 10 7-22 [facility] [employer] [id number] 09:15:00 Test Item Value Reference Range Interpretation Comments Creatinine Lvl (test code = Creatinine 0.61 0.50-1.40 Lvl) [facility] [employer] [id number] 09:15:00 Test Item Value Reference Range Interpretation Comments Sodium Lvl (test code = Sodium Lvl) 143 135-145 [place] 853501-08-20 09:15:00 Test Item Value Reference Range Interpretation Comments Potassium Lvl (test code = Potassium 3.5 3.5-5.1 Lvl) [place] 853501-08-20 09:15:00 Test Item Value Reference Range Interpretation Comments Chloride Lvl (test code = Chloride Lvl) 116 95-109 [id number] 09:15:00 Test Item Value Reference Range Interpretation Comments CO2 (test code = CO2) 25 24-32 [place] 853501-08-20 09:15:00 Test Item Value Reference Range Interpretation Comments Calcium Lvl (test code = Calcium Lvl) 8.6 8.5-10.5 [facility] [id number] 09:15:00 Test Item Value Reference Range Interpretation Comments Total Protein (test code = Total 5.5 6.4-8.4 Protein) [place] 853501-08-20 09:15:00 Test Item Value Reference Range Interpretation Comments Albumin Lvl (test code = Albumin Lvl) 2.6 3.5-5.0 [facility] [id number] 09:15:00 Test Item Value Reference Range Interpretation Comments ALT (test code = ALT) 10 See_Comment [Auto mated message] The system which ge nerated this result transmit sarah reference range : <=65. The reference range was not used to interpr et this result as felicitas l/abnormal. [facility] [id number] 09:15:00 Test Item Value Reference Range Interpretation Comments AST (test code = AST) 5 See_Comment [Auto mated message] The system which ge nerated this result transmit sarah reference range : <=37. The reference range was not used to interpr et this result as felicitas l/abnormal. [facility] [id number] 09:15:00 Test Item Value Reference Range Interpretation Comments Alk Phos (test code = Alk Phos) 68 39-136 [facility] [id number] 09:15:00 Test Item Value Reference Range Interpretation Comments Bili Total (test code = Bili Total) 0.2 0.2-1.3 [facility] [id number] 09:15:00 Test Item Value Reference Range Interpretation Comments AGAP (test code = AGAP) 5.5 10.0-20.0 [facility] [employer] [id number] 09:15:00 Test Item Value Reference Range Interpretation Comments B/C Ratio (test code = B/C Ratio) 16 1 6-25 [facility] [employer] [id number] 09:15:00 Test Item Value Reference Range Interpretation Comments Globulin (test code = Globulin) 2.9 2.7-4.2 [facility] [employer] [id number] 09:15:00 Test Item Value Reference Range Interpretation Comments A/G Ratio (test code = A/G Ratio) 0.9 1 0.7-1.6 [facility] [employer] [id number] 09:15:00 Test Item Value Reference Range Interpretation Comments eGFR (test code = eGFR) 94 [facility] [employer] [id number] 09:15:00 Test Item Value Reference Range Interpretation Comments ABO/Rh (test code = ABO/Rh) A POS [facility] [employer] [id number] 09:15:00 Test Item Value Reference Range Interpretation Comments Antibody Scrn (test Negative (02/10/21 4:15 code = Antibody Scrn) AM) [facility] [employer] [id number] 09:15:00 Test Item Value Reference Range Interpretation Comments Glucose Lvl (test code = Glucose Lvl) 105 70-99 [facility] [employer] [id number] 09:15:00 Test Item Value Reference Range Interpretation Comments BUN (test code = BUN) 10 7-22 [facility] [employer] [id number] 09:15:00 Test Item Value Reference Range Interpretation Comments Creatinine Lvl (test code = Creatinine 0.61 0.50-1.40 Lvl) [facility] [employer] [id number] 09:15:00 Test Item Value Reference Range Interpretation Comments Sodium Lvl (test code = Sodium Lvl) 143 135-145 [facility] [employer] [id number] 09:15:00 Test Item Value Reference Range Interpretation Comments Potassium Lvl (test code = Potassium 3.5 3.5-5.1 Lvl) [facility] [employer] [id number] 09:15:00 Test Item Value Reference Range Interpretation Comments Chloride Lvl (test code = Chloride Lvl) 116 95-109 [facility] [employer] [id number] 09:15:00 Test Item Value Reference Range Interpretation Comments CO2 (test code = CO2) 25 24-32 [facility] [employer] [id number] 09:15:00 Test Item Value Reference Range Interpretation Comments Calcium Lvl (test code = Calcium Lvl) 8.6 8.5-10.5 [facility] [employer] [id number] 09:15:00 Test Item Value Reference Range Interpretation Comments Total Protein (test code = Total 5.5 6.4-8.4 Protein) [facility] [employer] [id number] 09:15:00 Test Item Value Reference Range Interpretation Comments Albumin Lvl (test code = Albumin Lvl) 2.6 3.5-5.0 [facility] [employer] [id number] 09:15:00 Test Item Value Reference Range Interpretation Comments ABO/Rh (test code = ABO/Rh) A POS [facility] [employer] [id number] 09:15:00 Test Item Value Reference Range Interpretation Comments Antibody Scrn (test Negative (02/10/21 4:15 code = Antibody Scrn) AM) [facility] [employer] [id number] 09:15:00 Test Item Value Reference Range Interpretation Comments Glucose Lvl (test code = Glucose Lvl) 105 70-99 [facility] [employer] [id number] 09:15:00 Test Item Value Reference Range Interpretation Comments BUN (test code = BUN) 10 7-22 [facility] [employer] [id number] 09:15:00 Test Item Value Reference Range Interpretation Comments Creatinine Lvl (test code = Creatinine 0.61 0.50-1.40 Lvl) [facility] [employer] [id number] 09:15:00 Test Item Value Reference Range Interpretation Comments ALT (test code = ALT) 10 See_Comment [Auto mated message] The system which ge nerated this result transmit sarah reference range : <=65. The reference range was not used to interpr et this result as felicitas l/abnormal. [facility] [employer] [id number] 09:15:00 Test Item Value Reference Range Interpretation Comments Sodium Lvl (test code = Sodium Lvl) 143 135-145 [facility] [employer] [id number] 09:15:00 Test Item Value Reference Range Interpretation Comments Potassium Lvl (test code = Potassium 3.5 3.5-5.1 Lvl) [place] 853501-08-20 09:15:00 Test Item Value Reference Range Interpretation Comments Chloride Lvl (test code = Chloride Lvl) 116 95-109 [place] 853501-08-20 09:15:00 Test Item Value Reference Range Interpretation Comments CO2 (test code = CO2) 25 24-32 [place] 853501-08-20 09:15:00 Test Item Value Reference Range Interpretation Comments Calcium Lvl (test code = Calcium Lvl) 8.6 8.5-10.5 [facility] [id number] 09:15:00 Test Item Value Reference Range Interpretation Comments Total Protein (test code = Total 5.5 6.4-8.4 Protein) [place] 853501-08-20 09:15:00 Test Item Value Reference Range Interpretation Comments Albumin Lvl (test code = Albumin Lvl) 2.6 3.5-5.0 [place] 853501-08-20 09:15:00 Test Item Value Reference Range Interpretation Comments ALT (test code = ALT) 10 See_Comment [Auto mated message] The system which ge nerated this result transmit sarah reference range : <=65. The reference range was not used to interpr et this result as felicitas l/abnormal. [facility] [id number] 09:15:00 Test Item Value Reference Range Interpretation Comments AST (test code = AST) 5 See_Comment [Auto mated message] The system which ge nerated this result transmit sarah reference range : <=37. The reference range was not used to interpr et this result as felicitas l/abnormal. [facility] [id number] 09:15:00 Test Item Value Reference Range Interpretation Comments Alk Phos (test code = Alk Phos) 68 39-136 [facility] [id number] 09:15:00 Test Item Value Reference Range Interpretation Comments AST (test code = AST) 5 See_Comment [Auto mated message] The system which ge nerated this result transmit sarah reference range : <=37. The reference range was not used to interpr et this result as felicitas l/abnormal. [facility] [id number] 09:15:00 Test Item Value Reference Range Interpretation Comments Bili Total (test code = Bili Total) 0.2 0.2-1.3 [place] 853501-08-20 09:15:00 Test Item Value Reference Range Interpretation Comments AGAP (test code = AGAP) 5.5 10.0-20.0 [facility] [id number] 09:15:00 Test Item Value Reference Range Interpretation Comments B/C Ratio (test code = B/C Ratio) 16 1 12-16 [facility] [id number] 09:15:00 Test Item Value Reference Range Interpretation Comments Globulin (test code = Globulin) 2.9 2.7-4.2 [facility] [id number] 09:15:00 Test Item Value Reference Range Interpretation Comments A/G Ratio (test code = A/G Ratio) 0.9 1 0.7-1.6 [facility] [id number] 09:15:00 Test Item Value Reference Range Interpretation Comments eGFR (test code = eGFR) 94 [facility]COMM[facility] [id number] 09:15:00 Test Item Value Reference Range Interpretation Comments Alk Phos (test code = Alk Phos) 68 39-136 [facility]COMM[facility] [id number] 09:15:00 Test Item Value Reference Range Interpretation Comments Bili Total (test code = Bili Total) 0.2 0.2-1.3 [facility] [id number] 09:15:00 Test Item Value Reference Range Interpretation Comments AGAP (test code = AGAP) 5.5 10.0-20.0 [facility] [id number] 09:15:00 Test Item Value Reference Range Interpretation Comments B/C Ratio (test code = B/C Ratio) 16 1 12-16 [facility] [id number] 09:15:00 Test Item Value Reference Range Interpretation Comments Globulin (test code = Globulin) 2.9 2.7-4.2 [facility] [id number] 09:15:00 Test Item Value Reference Range Interpretation Comments A/G Ratio (test code = A/G Ratio) 0.9 1 0.7-1.6 [facility] [id number] 09:15:00 Test Item Value Reference Range Interpretation Comments eGFR (test code = eGFR) 94 [facility] [id number] 09:15:00Negative (02/10/21 4:15 AM) [facility] [id number] 09:15:[address] [facility] PANEL 2021-02-10 09:15:0010[facility] [id number] 06:30:00 Test Item Value Reference Range Interpretation Comments RBC product (test code Product available = RBC product) 5(02/10/21 1:30 AM) [facility] [id number] 06:30:00 Test Item Value Reference Range Interpretation Comments RBC product (test code Product available = RBC product) 5(02/10/21 1:30 AM) [facility] [id number] 06:30:00Product available 5(02/10/21 1:30 AM)[facility] [id number] 06:30:00 Test Item Value Reference Range Interpretation Comments RBC product (test code Product available = RBC product) 5(02/10/21 1:30 AM) [facility] [id number] 06:30:00 Test Item Value Reference Range Interpretation Comments RBC product (test code Product available = RBC product) 5(02/10/21 1:30 AM) [facility] [id number] 06:30:00 Test Item Value Reference Range Interpretation Comments RBC product (test code Product available = RBC product) 5(02/10/21 1:30 AM) [facility] [id number] 06:30:00 Test Item Value Reference Range Interpretation Comments RBC product (test code Product available = RBC product) 5(02/10/21 1:30 AM) [facility] [id number] 06:30:00 Test Item Value Reference Range Interpretation Comments RBC product (test code Product available = RBC product) 5(02/10/21 1:30 AM) [facility] [id number] 06:30:00 Test Item Value Reference Range Interpretation Comments RBC product (test code Product available = RBC product) 5(02/10/21 1:30 AM) [facility] [id number] 06:30:00 Test Item Value Reference Range Interpretation Comments RBC product (test code Product available = RBC product) 5(02/10/21 1:30 AM) [facility] [id number] 06:30:00 Test Item Value Reference Range Interpretation Comments RBC product (test code Product available = RBC product) 5(02/10/21 1:30 AM) [facility] [id number] 06:30:00 Test Item Value Reference Range Interpretation Comments RBC product (test code Product available = RBC product) 5(02/10/21 1:30 AM) [facility] [id number] 06:30:00 Test Item Value Reference Range Interpretation Comments RBC product (test code Product available = RBC product) 5(02/10/21 1:30 AM) [facility] [id number] 06:30:00 Test Item Value Reference Range Interpretation Comments RBC product (test code Product available = RBC product) 5(02/10/21 1:30 AM) [facility] [id number] 06:30:00 Test Item Value Reference Range Interpretation Comments RBC product (test code Product available = RBC product) 5(02/10/21 1:30 AM) [facility] [id number] 06:30:00 Test Item Value Reference Range Interpretation Comments RBC product (test code Product available = RBC product) 5(02/10/21 1:30 AM) [facility] [id number] 06:30:00 Test Item Value Reference Range Interpretation Comments RBC product (test code Product available = RBC product) 5(02/10/21 1:30 AM) [facility] [id number] 06:30:00 Test Item Value Reference Range Interpretation Comments RBC product (test code Product available = RBC product) 5(02/10/21 1:30 AM) [facility] [id number] 06:30:00 Test Item Value Reference Range Interpretation Comments RBC product (test code Product available = RBC product) 5(02/10/21 1:30 AM) [facility] [id number] 06:30:00 Test Item Value Reference Range Interpretation Comments RBC product (test code Product available = RBC product) 5(02/10/21 1:30 AM) [facility] [id number] 06:30:00 Test Item Value Reference Range Interpretation Comments RBC product (test code Product available = RBC product) 5(02/10/21 1:30 AM) [facility] [id number] 06:30:00 Test Item Value Reference Range Interpretation Comments RBC product (test code Product available = RBC product) 5(02/10/21 1:30 AM) [facility] [id number] 06:30:00 Test Item Value Reference Range Interpretation Comments RBC product (test code Product available = RBC product) 5(02/10/21 1:30 AM) [facility] [id number] 06:30:00 Test Item Value Reference Range Interpretation Comments RBC product (test code Product available = RBC product) 5(02/10/21 1:30 AM) [facility] [id number] 06:30:00 Test Item Value Reference Range Interpretation Comments RBC product (test code Product available = RBC product) 5(02/10/21 1:30 AM) [facility] [id number] 06:30:00 Test Item Value Reference Range Interpretation Comments RBC product (test code Product available = RBC product) 5(02/10/21 1:30 AM) [facility] [id number] 06:30:00 Test Item Value Reference Range Interpretation Comments RBC product (test code Product available = RBC product) 5(02/10/21 1:30 AM) [facility] [id number] 06:30:00 Test Item Value Reference Range Interpretation Comments RBC product (test code Product available = RBC product) 5(02/10/21 1:30 AM) [facility] [id number] 06:30:00 Test Item Value Reference Range Interpretation Comments RBC product (test code Product available = RBC product) 5(02/10/21 1:30 AM) [facility] [id number] 06:30:00 Test Item Value Reference Range Interpretation Comments RBC product (test code Product available = RBC product) 5(02/10/21 1:30 AM) [facility] [id number] 06:30:00 Test Item Value Reference Range Interpretation Comments RBC product (test code Product available = RBC product) 5(02/10/21 1:30 AM) [facility] [id number] 06:30:00 Test Item Value Reference Range Interpretation Comments RBC product (test code Product available = RBC product) 5(02/10/21 1:30 AM) [facility] [id number] 06:30:00 Test Item Value Reference Range Interpretation Comments RBC product (test code Product available = RBC product) 5(02/10/21 1:30 AM) [facility] [id number] 06:30:00 Test Item Value Reference Range Interpretation Comments RBC product (test code Product available = RBC product) 5(02/10/21 1:30 AM) [facility] [id number] 06:30:00 Test Item Value Reference Range Interpretation Comments RBC product (test code Product available = RBC product) 5(02/10/21 1:30 AM) [facility] [facility] [id number] 06:30:00 Test Item Value Reference Range Interpretation Comments RBC product (test code Product available = RBC product) 5(02/10/21 1:30 AM) [facility] [id number] 06:30:00 Test Item Value Reference Range Interpretation Comments RBC product (test code Product available = RBC product) 5(02/10/21 1:30 AM) [facility] [id number] 06:30:00 Test Item Value Reference Range Interpretation Comments RBC product (test code Product available = RBC product) 5(02/10/21 1:30 AM) [facility] [id number] 06:30:00 Test Item Value Reference Range Interpretation Comments RBC product (test code Product available = RBC product) 5(02/10/21 1:30 AM) [facility] [id number] 06:30:00 Test Item Value Reference Range Interpretation Comments RBC product (test code Product available = RBC product) 5(02/10/21 1:30 AM) [facility] BANK [id number] 06:30:00 Test Item Value Reference Range Interpretation Comments RBC product (test code Product available = RBC product) 5(02/10/21 1:30 AM) [facility] [id number] 02:42:00 Test Item Value Reference Range Interpretation Comments Occult Bld Stl (test Positive *ABN*(02/09/21 code = Occult Bld Stl) 9:42 PM) [facility] [id number] 02:42:00 Test Item Value Reference Range Interpretation Comments Occult Bld Stl (test Positive *ABN*(02/09/21 code = Occult Bld Stl) 9:42 PM) [facility] [id number] 02:42:00Positive *ABN*(02/09/21 9:42 PM)[facility] [id number] 02:42:00 Test Item Value Reference Range Interpretation Comments Occult Bld Stl (test Positive *ABN*(02/09/21 code = Occult Bld Stl) 9:42 PM) [facility] [id number] 02:42:00 Test Item Value Reference Range Interpretation Comments Occult Bld Stl (test Positive *ABN*(02/09/21 code = Occult Bld Stl) 9:42 PM) [facility] [id number] 02:42:00 Test Item Value Reference Range Interpretation Comments Occult Bld Stl (test Positive *ABN*(02/09/21 code = Occult Bld Stl) 9:42 PM) [facility] [id number] 02:42:00 Test Item Value Reference Range Interpretation Comments Occult Bld Stl (test Positive *ABN*(02/09/21 code = Occult Bld Stl) 9:42 PM) [facility] [id number] 02:42:00 Test Item Value Reference Range Interpretation Comments Occult Bld Stl (test Positive *ABN*(02/09/21 code = Occult Bld Stl) 9:42 PM) [facility] [id number] 02:42:00 Test Item Value Reference Range Interpretation Comments Occult Bld Stl (test Positive *ABN*(02/09/21 code = Occult Bld Stl) 9:42 PM) [facility] [id number] 02:42:00 Test Item Value Reference Range Interpretation Comments Occult Bld Stl (test Positive *ABN*(02/09/21 code = Occult Bld Stl) 9:42 PM) [facility] [id number] 02:42:00 Test Item Value Reference Range Interpretation Comments Occult Bld Stl (test Positive *ABN*(02/09/21 code = Occult Bld Stl) 9:42 PM) [facility] [id number] 02:42:00 Test Item Value Reference Range Interpretation Comments Occult Bld Stl (test Positive *ABN*(02/09/21 code = Occult Bld Stl) 9:42 PM) [facility] [id number] 02:42:00 Test Item Value Reference Range Interpretation Comments Occult Bld Stl (test Positive *ABN*(02/09/21 code = Occult Bld Stl) 9:42 PM) [facility] [id number] 02:42:00 Test Item Value Reference Range Interpretation Comments Occult Bld Stl (test Positive *ABN*(02/09/21 code = Occult Bld Stl) 9:42 PM) [facility] [id number] 02:42:00 Test Item Value Reference Range Interpretation Comments Occult Bld Stl (test Positive *ABN*(02/09/21 code = Occult Bld Stl) 9:42 PM) [facility] [id number] 02:42:00 Test Item Value Reference Range Interpretation Comments Occult Bld Stl (test Positive *ABN*(02/09/21 code = Occult Bld Stl) 9:42 PM) [facility] [id number] 02:42:00 Test Item Value Reference Range Interpretation Comments Occult Bld Stl (test Positive *ABN*(02/09/21 code = Occult Bld Stl) 9:42 PM) [facility] [id number] 02:42:00 Test Item Value Reference Range Interpretation Comments Occult Bld Stl (test Positive *ABN*(02/09/21 code = Occult Bld Stl) 9:42 PM) [facility] [id number] 02:42:00 Test Item Value Reference Range Interpretation Comments Occult Bld Stl (test Positive *ABN*(02/09/21 code = Occult Bld Stl) 9:42 PM) [facility] [id number] 02:42:00 Test Item Value Reference Range Interpretation Comments Occult Bld Stl (test Positive *ABN*(02/09/21 code = Occult Bld Stl) 9:42 PM) [facility] [id number] 02:42:00 Test Item Value Reference Range Interpretation Comments Occult Bld Stl (test Positive *ABN*(02/09/21 code = Occult Bld Stl) 9:42 PM) [facility] [id number] 02:42:00 Test Item Value Reference Range Interpretation Comments Occult Bld Stl (test Positive *ABN*(02/09/21 code = Occult Bld Stl) 9:42 PM) [facility] [id number] 02:42:00 Test Item Value Reference Range Interpretation Comments Occult Bld Stl (test Positive *ABN*(02/09/21 code = Occult Bld Stl) 9:42 PM) [facility] [id number] 02:42:00 Test Item Value Reference Range Interpretation Comments Occult Bld Stl (test Positive *ABN*(02/09/21 code = Occult Bld Stl) 9:42 PM) [facility] [id number] 02:42:00 Test Item Value Reference Range Interpretation Comments Occult Bld Stl (test Positive *ABN*(02/09/21 code = Occult Bld Stl) 9:42 PM) [facility] [id number] 02:42:00 Test Item Value Reference Range Interpretation Comments Occult Bld Stl (test Positive *ABN*(02/09/21 code = Occult Bld Stl) 9:42 PM) [facility] [id number] 02:42:00 Test Item Value Reference Range Interpretation Comments Occult Bld Stl (test Positive *ABN*(02/09/21 code = Occult Bld Stl) 9:42 PM) [facility] [id number] 02:42:00 Test Item Value Reference Range Interpretation Comments Occult Bld Stl (test Positive *ABN*(02/09/21 code = Occult Bld Stl) 9:42 PM) [facility] [id number] 02:42:00 Test Item Value Reference Range Interpretation Comments Occult Bld Stl (test Positive *ABN*(02/09/21 code = Occult Bld Stl) 9:42 PM) [facility] [id number] 02:42:00 Test Item Value Reference Range Interpretation Comments Occult Bld Stl (test Positive *ABN*(02/09/21 code = Occult Bld Stl) 9:42 PM) [facility] [id number] 02:42:00 Test Item Value Reference Range Interpretation Comments Occult Bld Stl (test Positive *ABN*(02/09/21 code = Occult Bld Stl) 9:42 PM) [facility] [id number] 02:42:00 Test Item Value Reference Range Interpretation Comments Occult Bld Stl (test Positive *ABN*(02/09/21 code = Occult Bld Stl) 9:42 PM) [facility] [id number] 02:42:00 Test Item Value Reference Range Interpretation Comments Occult Bld Stl (test Positive *ABN*(02/09/21 code = Occult Bld Stl) 9:42 PM) [facility] [id number] 02:42:00 Test Item Value Reference Range Interpretation Comments Occult Bld Stl (test Positive *ABN*(02/09/21 code = Occult Bld Stl) 9:42 PM) [facility] [id number] 02:42:00 Test Item Value Reference Range Interpretation Comments Occult Bld Stl (test Positive *ABN*(02/09/21 code = Occult Bld Stl) 9:42 PM) [facility] [id number] 02:42:00 Test Item Value Reference Range Interpretation Comments Occult Bld Stl (test Positive *ABN*(02/09/21 code = Occult Bld Stl) 9:42 PM) [facility] [id number] 02:42:00 Test Item Value Reference Range Interpretation Comments Occult Bld Stl (test Positive *ABN*(02/09/21 code = Occult Bld Stl) 9:42 PM) [facility] [id number] 02:42:00 Test Item Value Reference Range Interpretation Comments Occult Bld Stl (test Positive *ABN*(02/09/21 code = Occult Bld Stl) 9:42 PM) [facility] [id number] 02:42:00 Test Item Value Reference Range Interpretation Comments Occult Bld Stl (test Positive *ABN*(02/09/21 code = Occult Bld Stl) 9:42 PM) [facility] [id number] 02:42:00 Test Item Value Reference Range Interpretation Comments Occult Bld Stl (test Positive *ABN*(02/09/21 code = Occult Bld Stl) 9:42 PM) [facility] [id number] 02:42:00 Test Item Value Reference Range Interpretation Comments Occult Bld Stl (test Positive *ABN*(02/09/21 code = Occult Bld Stl) 9:42 PM) [facility] [id number] 02:33:00 Test Item Value Reference Range Interpretation Comments UA Color (test code = Yellow *NA*(02/09/21 UA Color) 9:33 PM) [facility] [id number] 02:33:00 Test Item Value Reference Range Interpretation Comments UA Turbidity (test code = Clear (02/09/21 9:33 UA Turbidity) PM) [facility] [id number] 02:33:00 Test Item Value Reference Range Interpretation Comments UA Spec Grav (test code = UA Spec 1.017 1 Grav) [facility] [id number] 02:33:00 Test Item Value Reference Range Interpretation Comments UA pH (test code = UA pH) 5.0 1 5.0-8.0 [facility] [id number] 02:33:00 Test Item Value Reference Range Interpretation Comments UA Protein (test code = UA Negative mg/dL Protein) [facility] [id number] 02:33:00 Test Item Value Reference Range Interpretation Comments UA Glucose (test code = UA Negative mg/dL Glucose) [facility] [id number] 02:33:00 Test Item Value Reference Range Interpretation Comments UA Ketones (test code = UA Negative mg/dL Ketones) [facility] [id number] 02:33:00 Test Item Value Reference Range Interpretation Comments UA Bili (test code = Negative *NA*(02/09/21 UA Bili) 9:33 PM) [facility] [id number] 02:33:00 Test Item Value Reference Range Interpretation Comments UA Blood (test code = Negative (02/09/21 9:33 UA Blood) PM) [facility] [id number] 02:33:00 Test Item Value Reference Range Interpretation Comments UA Urobilinogen (test code = UA 2.0 0.1-1.0 Urobilinogen) [facility] [id number] 02:33:00 Test Item Value Reference Range Interpretation Comments UA Nitrite (test code Negative (02/09/21 9:33 = UA Nitrite) PM) [facility] [id number] 02:33:00 Test Item Value Reference Range Interpretation Comments UA Leuk Est (test code Small *ABN*(02/09/21 = UA Leuk Est) 9:33 PM) [facility] [id number] 02:33:00 Test Item Value Reference Range Interpretation Comments UA Sq Epi (test code = UA Sq Occasional /LPF Epi) [facility] [id number] 02:33:00 Test Item Value Reference Range Interpretation Comments UA WBC (test code = 1 See_Comment [Automa sarah message] The UA WBC) system which ge nerated this result transmit sarah reference range : <=5. The reference range was not used to interpr et this result as felicitas l/abnormal. [facility] [id number] 02:33:00 Test Item Value Reference Range Interpretation Comments UA RBC (test code = 1 See_Comment [Automa sarah message] The UA RBC) system which ge nerated this result transmit sarah reference range : <=2. The reference range was not used to interpr et this result as felicitas l/abnormal. [facility] [id number] 02:33:00 Test Item Value Reference Range Interpretation Comments UA Mucus (test code = UA Mucus) Few /LPF [facility] AND [id number] 02:33:00 Test Item Value Reference Range Interpretation Comments UA Color (test code = Yellow *NA*(02/09/21 UA Color) 9:33 PM) [facility] AND [id number] 02:33:00 Test Item Value Reference Range Interpretation Comments UA Turbidity (test code = Clear (02/09/21 9:33 UA Turbidity) PM) [facility] AND [id number] 02:33:00 Test Item Value Reference Range Interpretation Comments UA Spec Grav (test code = UA Spec 1.017 1 Grav) [facility] AND [id number] 02:33:00 Test Item Value Reference Range Interpretation Comments UA pH (test code = UA pH) 5.0 1 5.0-8.0 [facility] AND [id number] 02:33:00 Test Item Value Reference Range Interpretation Comments UA Protein (test code = UA Negative mg/dL Protein) [facility] AND [id number] 02:33:00 Test Item Value Reference Range Interpretation Comments UA Glucose (test code = UA Negative mg/dL Glucose) [facility] AND [id number] 02:33:00 Test Item Value Reference Range Interpretation Comments UA Ketones (test code = UA Negative mg/dL Ketones) [facility] AND [id number] 02:33:00 Test Item Value Reference Range Interpretation Comments UA Bili (test code = Negative *NA*(02/09/21 UA Bili) 9:33 PM) [facility] AND [id number] 02:33:00 Test Item Value Reference Range Interpretation Comments UA Blood (test code = Negative (02/09/21 9:33 UA Blood) PM) [facility] AND [id number] 02:33:00 Test Item Value Reference Range Interpretation Comments UA Urobilinogen (test code = UA 2.0 0.1-1.0 Urobilinogen) [facility] AND [id number] 02:33:00 Test Item Value Reference Range Interpretation Comments UA Nitrite (test code Negative (02/09/21 9:33 = UA Nitrite) PM) [facility] AND [id number] 02:33:00 Test Item Value Reference Range Interpretation Comments UA Leuk Est (test code Small *ABN*(02/09/21 = UA Leuk Est) 9:33 PM) [facility] [id number] 02:33:00 Test Item Value Reference Range Interpretation Comments UA Sq Epi (test code = UA Sq Occasional /LPF Epi) [facility] [id number] 02:33:00 Test Item Value Reference Range Interpretation Comments UA WBC (test code = 1 See_Comment [Automa sarah message] The UA WBC) system which ge nerated this result transmit sarah reference range : <=5. The reference range was not used to interpr et this result as felicitas l/abnormal. [facility] [id number] 02:33:00 Test Item Value Reference Range Interpretation Comments UA RBC (test code = 1 See_Comment [Automa sarah message] The UA RBC) system which ge nerated this result transmit sarah reference range : <=2. The reference range was not used to interpr et this result as felicitas l/abnormal. [facility] [id number] 02:33:00 Test Item Value Reference Range Interpretation Comments UA Mucus (test code = UA Mucus) Few /LPF [facility] [id number] 02:33:00Yellow *NA*(02/09/21 9:33 PM) [facility] [id number] 02:33:00Clear (02/09/21 9:33 PM) [facility] [id number] 02:33:00 Test Item Value Reference Range Interpretation Comments UA Spec Grav (test code = UA Spec 1.017 1 Grav) [facility] [id number] 02:33:00 Test Item Value Reference Range Interpretation Comments UA pH (test code = UA pH) 5.0 1 5.0-8.0 [facility] [id number] 02:33:00Negative *NA*(02/09/21 9:33 PM) [facility] [id number] 02:33:00Negative (02/09/21 9:33 PM) [facility] [id number] 02:33:002.0[facility] [id number] 02:33:00Negative (02/09/21 9:33 PM)[facility] [id number] 02:33:00Small *ABN*(02/09/21 9:33 PM)[facility] [id number] 02:33:001[facility] [id number] 02:33:001 [facility] [id number] 02:33:00 Test Item Value Reference Range Interpretation Comments UA Color (test code = Yellow *NA*(02/09/21 UA Color) 9:33 PM) [facility] [id number] 02:33:00 Test Item Value Reference Range Interpretation Comments UA Turbidity (test code = Clear (02/09/21 9:33 UA Turbidity) PM) [facility] [id number] 02:33:00 Test Item Value Reference Range Interpretation Comments UA Spec Grav (test code = UA Spec 1.017 1 Grav) [facility] [id number] 02:33:00 Test Item Value Reference Range Interpretation Comments UA pH (test code = UA pH) 5.0 1 5.0-8.0 [facility] [id number] 02:33:00 Test Item Value Reference Range Interpretation Comments UA Protein (test code = UA Negative mg/dL Protein) [facility] [id number] 02:33:00 Test Item Value Reference Range Interpretation Comments UA Glucose (test code = UA Negative mg/dL Glucose) [facility] [id number] 02:33:00 Test Item Value Reference Range Interpretation Comments UA Ketones (test code = UA Negative mg/dL Ketones) [facility] [id number] 02:33:00 Test Item Value Reference Range Interpretation Comments UA Bili (test code = Negative *NA*(02/09/21 UA Bili) 9:33 PM) [facility] [id number] 02:33:00 Test Item Value Reference Range Interpretation Comments UA Blood (test code = Negative (02/09/21 9:33 UA Blood) PM) [facility] [id number] 02:33:00 Test Item Value Reference Range Interpretation Comments UA Urobilinogen (test code = UA 2.0 0.1-1.0 Urobilinogen) [facility] [id number] 02:33:00 Test Item Value Reference Range Interpretation Comments UA Nitrite (test code Negative (02/09/21 9:33 = UA Nitrite) PM) [facility] [id number] 02:33:00 Test Item Value Reference Range Interpretation Comments UA Leuk Est (test code Small *ABN*(02/09/21 = UA Leuk Est) 9:33 PM) [facility] [id number] 02:33:00 Test Item Value Reference Range Interpretation Comments UA Sq Epi (test code = UA Sq Occasional /LPF Epi) [facility] [id number] 02:33:00 Test Item Value Reference Range Interpretation Comments UA WBC (test code = 1 See_Comment [Automa sarah message] The UA WBC) system which ge nerated this result transmit sarah reference range : <=5. The reference range was not used to interpr et this result as felicitas l/abnormal. [facility] [id number] 02:33:00 Test Item Value Reference Range Interpretation Comments UA RBC (test code = 1 See_Comment [Automa sarah message] The UA RBC) system which ge nerated this result transmit sarah reference range : <=2. The reference range was not used to interpr et this result as felicitas l/abnormal. [facility] [id number] 02:33:00 Test Item Value Reference Range Interpretation Comments UA Mucus (test code = UA Mucus) Few /LPF [facility] [id number] 02:33:00 Test Item Value Reference Range Interpretation Comments UA Color (test code = Yellow *NA*(02/09/21 UA Color) 9:33 PM) [facility] [id number] 02:33:00 Test Item Value Reference Range Interpretation Comments UA Turbidity (test code = Clear (02/09/21 9:33 UA Turbidity) PM) [facility] [id number] 02:33:00 Test Item Value Reference Range Interpretation Comments UA Spec Grav (test code = UA Spec 1.017 1 Grav) [facility] [id number] 02:33:00 Test Item Value Reference Range Interpretation Comments UA pH (test code = UA pH) 5.0 1 5.0-8.0 [facility] AND [id number] 02:33:00 Test Item Value Reference Range Interpretation Comments UA Protein (test code = UA Negative mg/dL Protein) [facility] AND [id number] 02:33:00 Test Item Value Reference Range Interpretation Comments UA Glucose (test code = UA Negative mg/dL Glucose) [facility] AND [id number] 02:33:00 Test Item Value Reference Range Interpretation Comments UA Ketones (test code = UA Negative mg/dL Ketones) [facility] AND [id number] 02:33:00 Test Item Value Reference Range Interpretation Comments UA Bili (test code = Negative *NA*(02/09/21 UA Bili) 9:33 PM) [facility] AND [id number] 02:33:00 Test Item Value Reference Range Interpretation Comments UA Blood (test code = Negative (02/09/21 9:33 UA Blood) PM) [facility] AND [id number] 02:33:00 Test Item Value Reference Range Interpretation Comments UA Urobilinogen (test code = UA 2.0 0.1-1.0 Urobilinogen) [facility] AND [id number] 02:33:00 Test Item Value Reference Range Interpretation Comments UA Nitrite (test code Negative (02/09/21 9:33 = UA Nitrite) PM) [facility] AND [id number] 02:33:00 Test Item Value Reference Range Interpretation Comments UA Leuk Est (test code Small *ABN*(02/09/21 = UA Leuk Est) 9:33 PM) [facility] AND [id number] 02:33:00 Test Item Value Reference Range Interpretation Comments UA Sq Epi (test code = UA Sq Occasional /LPF Epi) [facility] AND [id number] 02:33:00 Test Item Value Reference Range Interpretation Comments UA WBC (test code = 1 See_Comment [Automa sarah message] The UA WBC) system which ge nerated this result transmit sarah reference range : <=5. The reference range was not used to interpr et this result as felicitas l/abnormal. [facility] AND [id number] 02:33:00 Test Item Value Reference Range Interpretation Comments UA RBC (test code = 1 See_Comment [Automa sarah message] The UA RBC) system which ge nerated this result transmit sarah reference range : <=2. The reference range was not used to interpr et this result as felicitas l/abnormal. [facility] AND [id number] 02:33:00 Test Item Value Reference Range Interpretation Comments UA Mucus (test code = UA Mucus) Few /LPF [facility] AND [id number] 02:33:00 Test Item Value Reference Range Interpretation Comments UA Color (test code = Yellow *NA*(02/09/21 UA Color) 9:33 PM) [facility] AND [id number] 02:33:00 Test Item Value Reference Range Interpretation Comments UA Turbidity (test code = Clear (02/09/21 9:33 UA Turbidity) PM) [facility] AND [id number] 02:33:00 Test Item Value Reference Range Interpretation Comments UA Spec Grav (test code = UA Spec 1.017 1 Grav) [facility] AND [id number] 02:33:00 Test Item Value Reference Range Interpretation Comments UA pH (test code = UA pH) 5.0 1 5.0-8.0 [facility] AND [id number] 02:33:00 Test Item Value Reference Range Interpretation Comments UA Protein (test code = UA Negative mg/dL Protein) [facility] AND [id number] 02:33:00 Test Item Value Reference Range Interpretation Comments UA Glucose (test code = UA Negative mg/dL Glucose) [facility] AND [id number] 02:33:00 Test Item Value Reference Range Interpretation Comments UA Ketones (test code = UA Negative mg/dL Ketones) [facility] AND [id number] 02:33:00 Test Item Value Reference Range Interpretation Comments UA Bili (test code = Negative *NA*(02/09/21 UA Bili) 9:33 PM) [facility] AND [id number] 02:33:00 Test Item Value Reference Range Interpretation Comments UA Blood (test code = Negative (02/09/21 9:33 UA Blood) PM) [facility] [id number] 02:33:00 Test Item Value Reference Range Interpretation Comments UA Urobilinogen (test code = UA 2.0 0.1-1.0 Urobilinogen) [facility] [id number] 02:33:00 Test Item Value Reference Range Interpretation Comments UA Nitrite (test code Negative (02/09/21 9:33 = UA Nitrite) PM) [facility] [id number] 02:33:00 Test Item Value Reference Range Interpretation Comments UA Leuk Est (test code Small *ABN*(02/09/21 = UA Leuk Est) 9:33 PM) [facility] [id number] 02:33:00 Test Item Value Reference Range Interpretation Comments UA Sq Epi (test code = UA Sq Occasional /LPF Epi) [facility] [id number] 02:33:00 Test Item Value Reference Range Interpretation Comments UA WBC (test code = 1 See_Comment [Automa sarah message] The UA WBC) system which ge nerated this result transmit sarah reference range : <=5. The reference range was not used to interpr et this result as felicitas l/abnormal. [facility] [id number] 02:33:00 Test Item Value Reference Range Interpretation Comments UA RBC (test code = 1 See_Comment [Automa sarah message] The UA RBC) system which ge nerated this result transmit sarah reference range : <=2. The reference range was not used to interpr et this result as felicitas l/abnormal. [facility] [id number] 02:33:00 Test Item Value Reference Range Interpretation Comments UA Mucus (test code = UA Mucus) Few /LPF [facility] [id number] 02:33:00 Test Item Value Reference Range Interpretation Comments UA Color (test code = Yellow *NA*(02/09/21 UA Color) 9:33 PM) [facility] [id number] 02:33:00 Test Item Value Reference Range Interpretation Comments UA Turbidity (test code = Clear (02/09/21 9:33 UA Turbidity) PM) [facility] [id number] 02:33:00 Test Item Value Reference Range Interpretation Comments UA Spec Grav (test code = UA Spec 1.017 1 Grav) [facility] AND [id number] 02:33:00 Test Item Value Reference Range Interpretation Comments UA pH (test code = UA pH) 5.0 1 5.0-8.0 [facility] AND [id number] 02:33:00 Test Item Value Reference Range Interpretation Comments UA Protein (test code = UA Negative mg/dL Protein) [facility] AND [id number] 02:33:00 Test Item Value Reference Range Interpretation Comments UA Glucose (test code = UA Negative mg/dL Glucose) [facility] AND [id number] 02:33:00 Test Item Value Reference Range Interpretation Comments UA Ketones (test code = UA Negative mg/dL Ketones) [facility] AND [id number] 02:33:00 Test Item Value Reference Range Interpretation Comments UA Bili (test code = Negative *NA*(02/09/21 UA Bili) 9:33 PM) [facility] AND [id number] 02:33:00 Test Item Value Reference Range Interpretation Comments UA Blood (test code = Negative (02/09/21 9:33 UA Blood) PM) [facility] AND [id number] 02:33:00 Test Item Value Reference Range Interpretation Comments UA Urobilinogen (test code = UA 2.0 0.1-1.0 Urobilinogen) [facility] AND [id number] 02:33:00 Test Item Value Reference Range Interpretation Comments UA Nitrite (test code Negative (02/09/21 9:33 = UA Nitrite) PM) [facility] AND [id number] 02:33:00 Test Item Value Reference Range Interpretation Comments UA Leuk Est (test code Small *ABN*(02/09/21 = UA Leuk Est) 9:33 PM) [facility] AND [id number] 02:33:00 Test Item Value Reference Range Interpretation Comments UA Sq Epi (test code = UA Sq Occasional /LPF Epi) [facility] AND [id number] 02:33:00 Test Item Value Reference Range Interpretation Comments UA WBC (test code = 1 See_Comment [Automa sarah message] The UA WBC) system which ge nerated this result transmit sarah reference range : <=5. The reference range was not used to interpr et this result as felicitas l/abnormal. [facility] [place] [facility] [id number] 02:33:00 Test Item Value Reference Range Interpretation Comments UA RBC (test code = 1 See_Comment [Automa sarah message] The UA RBC) system which ge nerated this result transmit sarah reference range : <=2. The reference range was not used to interpr et this result as felicitas l/abnormal. [facility] [place] [facility] [id number] 02:33:00 Test Item Value Reference Range Interpretation Comments UA Mucus (test code = UA Mucus) Few /LPF [facility] [facility] [id number] 02:33:00 Test Item Value Reference Range Interpretation Comments UA Color (test code = Yellow *NA*(02/09/21 UA Color) 9:33 PM) [facility] [id number] 02:33:00 Test Item Value Reference Range Interpretation Comments UA Turbidity (test code = Clear (02/09/21 9:33 UA Turbidity) PM) [facility] [place] [facility] [id number] 02:33:00 Test Item Value Reference Range Interpretation Comments UA Spec Grav (test code = UA Spec 1.017 1 Grav) [facility] [place] [facility] [id number] 02:33:00 Test Item Value Reference Range Interpretation Comments UA pH (test code = UA pH) 5.0 1 5.0-8.0 [facility] [place] [facility] [id number] 02:33:00 Test Item Value Reference Range Interpretation Comments UA Protein (test code = UA Negative mg/dL Protein) [facility] [place] [facility] [id number] 02:33:00 Test Item Value Reference Range Interpretation Comments UA Glucose (test code = UA Negative mg/dL Glucose) [facility] [id number] 02:33:00 Test Item Value Reference Range Interpretation Comments UA Ketones (test code = UA Negative mg/dL Ketones) [facility] [place] [facility] [id number] 02:33:00 Test Item Value Reference Range Interpretation Comments UA Bili (test code = Negative *NA*(02/09/21 UA Bili) 9:33 PM) [facility] [place] [facility] [id number] 02:33:00 Test Item Value Reference Range Interpretation Comments UA Blood (test code = Negative (02/09/21 9:33 UA Blood) PM) [facility] [id number] 02:33:00 Test Item Value Reference Range Interpretation Comments UA Urobilinogen (test code = UA 2.0 0.1-1.0 Urobilinogen) [facility] [id number] 02:33:00 Test Item Value Reference Range Interpretation Comments UA Nitrite (test code Negative (02/09/21 9:33 = UA Nitrite) PM) [facility] [id number] 02:33:00 Test Item Value Reference Range Interpretation Comments UA Leuk Est (test code Small *ABN*(02/09/21 = UA Leuk Est) 9:33 PM) [facility] [id number] 02:33:00 Test Item Value Reference Range Interpretation Comments UA Sq Epi (test code = UA Sq Occasional /LPF Epi) [facility] [facility] [id number] 02:33:00 Test Item Value Reference Range Interpretation Comments UA WBC (test code = 1 See_Comment [Automa sarah message] The UA WBC) system which ge nerated this result transmit sarah reference range : <=5. The reference range was not used to interpr et this result as felicitas l/abnormal. [facility] [id number] 02:33:00 Test Item Value Reference Range Interpretation Comments UA RBC (test code = 1 See_Comment [Automa sarah message] The UA RBC) system which ge nerated this result transmit sarah reference range : <=2. The reference range was not used to interpr et this result as felicitas l/abnormal. [facility] [id number] 02:33:00 Test Item Value Reference Range Interpretation Comments UA Mucus (test code = UA Mucus) Few /LPF [facility] [id number] 02:33:00 Test Item Value Reference Range Interpretation Comments UA Color (test code = Yellow *NA*(02/09/21 UA Color) 9:33 PM) [facility] [id number] 02:33:00 Test Item Value Reference Range Interpretation Comments UA Turbidity (test code = Clear (02/09/21 9:33 UA Turbidity) PM) [facility] AND [id number] 02:33:00 Test Item Value Reference Range Interpretation Comments UA Spec Grav (test code = UA Spec 1.017 1 Grav) [facility] AND [id number] 02:33:00 Test Item Value Reference Range Interpretation Comments UA pH (test code = UA pH) 5.0 1 5.0-8.0 [facility] AND [id number] 02:33:00 Test Item Value Reference Range Interpretation Comments UA Protein (test code = UA Negative mg/dL Protein) [facility] AND [id number] 02:33:00 Test Item Value Reference Range Interpretation Comments UA Glucose (test code = UA Negative mg/dL Glucose) [facility] AND [id number] 02:33:00 Test Item Value Reference Range Interpretation Comments UA Ketones (test code = UA Negative mg/dL Ketones) [facility] AND [id number] 02:33:00 Test Item Value Reference Range Interpretation Comments UA Bili (test code = Negative *NA*(02/09/21 UA Bili) 9:33 PM) [facility] AND [id number] 02:33:00 Test Item Value Reference Range Interpretation Comments UA Blood (test code = Negative (02/09/21 9:33 UA Blood) PM) [facility] AND [id number] 02:33:00 Test Item Value Reference Range Interpretation Comments UA Urobilinogen (test code = UA 2.0 0.1-1.0 Urobilinogen) [facility] AND [id number] 02:33:00 Test Item Value Reference Range Interpretation Comments UA Nitrite (test code Negative (02/09/21 9:33 = UA Nitrite) PM) [facility] AND [id number] 02:33:00 Test Item Value Reference Range Interpretation Comments UA Leuk Est (test code Small *ABN*(02/09/21 = UA Leuk Est) 9:33 PM) [facility] AND [id number] 02:33:00 Test Item Value Reference Range Interpretation Comments UA Sq Epi (test code = UA Sq Occasional /LPF Epi) [facility] AND [id number] 02:33:00 Test Item Value Reference Range Interpretation Comments UA WBC (test code = 1 See_Comment [Automa sarah message] The UA WBC) system which ge nerated this result transmit sarah reference range : <=5. The reference range was not used to interpr et this result as felicitas l/abnormal. [facility] [place] [facility] [id number] 02:33:00 Test Item Value Reference Range Interpretation Comments UA RBC (test code = 1 See_Comment [Automa sarah message] The UA RBC) system which ge nerated this result transmit sarah reference range : <=2. The reference range was not used to interpr et this result as felicitas l/abnormal. [facility] AND [id number] 02:33:00 Test Item Value Reference Range Interpretation Comments UA Mucus (test code = UA Mucus) Few /LPF [facility] AND [id number] 02:33:00 Test Item Value Reference Range Interpretation Comments UA Color (test code = Yellow *NA*(02/09/21 UA Color) 9:33 PM) [facility] AND [id number] 02:33:00 Test Item Value Reference Range Interpretation Comments UA Turbidity (test code = Clear (02/09/21 9:33 UA Turbidity) PM) [facility] AND [id number] 02:33:00 Test Item Value Reference Range Interpretation Comments UA Spec Grav (test code = UA Spec 1.017 1 Grav) [facility] AND [id number] 02:33:00 Test Item Value Reference Range Interpretation Comments UA pH (test code = UA pH) 5.0 1 5.0-8.0 [facility] AND [id number] 02:33:00 Test Item Value Reference Range Interpretation Comments UA Protein (test code = UA Negative mg/dL Protein) [facility] AND [id number] 02:33:00 Test Item Value Reference Range Interpretation Comments UA Glucose (test code = UA Negative mg/dL Glucose) [facility] AND [id number] 02:33:00 Test Item Value Reference Range Interpretation Comments UA Ketones (test code = UA Negative mg/dL Ketones) [facility] AND [id number] 02:33:00 Test Item Value Reference Range Interpretation Comments UA Bili (test code = Negative *NA*(02/09/21 UA Bili) 9:33 PM) [facility] [id number] 02:33:00 Test Item Value Reference Range Interpretation Comments UA Blood (test code = Negative (02/09/21 9:33 UA Blood) PM) [facility] [id number] 02:33:00 Test Item Value Reference Range Interpretation Comments UA Urobilinogen (test code = UA 2.0 0.1-1.0 Urobilinogen) [facility] [id number] 02:33:00 Test Item Value Reference Range Interpretation Comments UA Nitrite (test code Negative (02/09/21 9:33 = UA Nitrite) PM) [facility] [id number] 02:33:00 Test Item Value Reference Range Interpretation Comments UA Leuk Est (test code Small *ABN*(02/09/21 = UA Leuk Est) 9:33 PM) [facility] [id number] 02:33:00 Test Item Value Reference Range Interpretation Comments UA Sq Epi (test code = UA Sq Occasional /LPF Epi) [facility] [id number] 02:33:00 Test Item Value Reference Range Interpretation Comments UA WBC (test code = 1 See_Comment [Automa sarah message] The UA WBC) system which ge nerated this result transmit sarah reference range : <=5. The reference range was not used to interpr et this result as felicitas l/abnormal. [facility] [id number] 02:33:00 Test Item Value Reference Range Interpretation Comments UA RBC (test code = 1 See_Comment [Automa sarah message] The UA RBC) system which ge nerated this result transmit sarah reference range : <=2. The reference range was not used to interpr et this result as felicitas l/abnormal. [facility] [id number] 02:33:00 Test Item Value Reference Range Interpretation Comments UA Mucus (test code = UA Mucus) Few /LPF [facility] [id number] 02:33:00 Test Item Value Reference Range Interpretation Comments UA Color (test code = Yellow *NA*(02/09/21 UA Color) 9:33 PM) [facility] [id number] 02:33:00 Test Item Value Reference Range Interpretation Comments UA Turbidity (test code = Clear (02/09/21 9:33 UA Turbidity) PM) [facility] AND [id number] 02:33:00 Test Item Value Reference Range Interpretation Comments UA Spec Grav (test code = UA Spec 1.017 1 Grav) [facility] AND [id number] 02:33:00 Test Item Value Reference Range Interpretation Comments UA pH (test code = UA pH) 5.0 1 5.0-8.0 [facility] AND [id number] 02:33:00 Test Item Value Reference Range Interpretation Comments UA Protein (test code = UA Negative mg/dL Protein) [facility] AND [id number] 02:33:00 Test Item Value Reference Range Interpretation Comments UA Glucose (test code = UA Negative mg/dL Glucose) [facility] AND [id number] 02:33:00 Test Item Value Reference Range Interpretation Comments UA Ketones (test code = UA Negative mg/dL Ketones) [facility] AND [id number] 02:33:00 Test Item Value Reference Range Interpretation Comments UA Bili (test code = Negative *NA*(02/09/21 UA Bili) 9:33 PM) [facility] AND [id number] 02:33:00 Test Item Value Reference Range Interpretation Comments UA Blood (test code = Negative (02/09/21 9:33 UA Blood) PM) [facility] AND [id number] 02:33:00 Test Item Value Reference Range Interpretation Comments UA Urobilinogen (test code = UA 2.0 0.1-1.0 Urobilinogen) [facility] AND [id number] 02:33:00 Test Item Value Reference Range Interpretation Comments UA Nitrite (test code Negative (02/09/21 9:33 = UA Nitrite) PM) [facility] AND [id number] 02:33:00 Test Item Value Reference Range Interpretation Comments UA Leuk Est (test code Small *ABN*(02/09/21 = UA Leuk Est) 9:33 PM) [facility] AND [id number] 02:33:00 Test Item Value Reference Range Interpretation Comments UA Sq Epi (test code = UA Sq Occasional /LPF Epi) [facility] AND [id number] 02:33:00 Test Item Value Reference Range Interpretation Comments UA WBC (test code = 1 See_Comment [Automa sarah message] The UA WBC) system which ge nerated this result transmit sarah reference range : <=5. The reference range was not used to interpr et this result as felicitas l/abnormal. [facility] [place] [facility] [id number] 02:33:00 Test Item Value Reference Range Interpretation Comments UA RBC (test code = 1 See_Comment [Automa sarah message] The UA RBC) system which ge nerated this result transmit sarah reference range : <=2. The reference range was not used to interpr et this result as felicitas l/abnormal. [facility] [id number] 02:33:00 Test Item Value Reference Range Interpretation Comments UA Mucus (test code = UA Mucus) Few /LPF [facility] [place] [facility] [id number] 02:33:00 Test Item Value Reference Range Interpretation Comments UA Color (test code = Yellow *NA*(02/09/21 UA Color) 9:33 PM) [facility] AND [id number] 02:33:00 Test Item Value Reference Range Interpretation Comments UA Turbidity (test code = Clear (02/09/21 9:33 UA Turbidity) PM) [facility] AND [id number] 02:33:00 Test Item Value Reference Range Interpretation Comments UA Spec Grav (test code = UA Spec 1.017 1 Grav) [facility] AND [id number] 02:33:00 Test Item Value Reference Range Interpretation Comments UA pH (test code = UA pH) 5.0 1 5.0-8.0 [facility] AND [id number] 02:33:00 Test Item Value Reference Range Interpretation Comments UA Protein (test code = UA Negative mg/dL Protein) [facility] AND [id number] 02:33:00 Test Item Value Reference Range Interpretation Comments UA Glucose (test code = UA Negative mg/dL Glucose) [facility] AND [id number] 02:33:00 Test Item Value Reference Range Interpretation Comments UA Ketones (test code = UA Negative mg/dL Ketones) [facility] AND [id number] 02:33:00 Test Item Value Reference Range Interpretation Comments UA Bili (test code = Negative *NA*(02/09/21 UA Bili) 9:33 PM) [facility] [id number] 02:33:00 Test Item Value Reference Range Interpretation Comments UA Blood (test code = Negative (02/09/21 9:33 UA Blood) PM) [facility] [id number] 02:33:00 Test Item Value Reference Range Interpretation Comments UA Urobilinogen (test code = UA 2.0 0.1-1.0 Urobilinogen) [facility] [id number] 02:33:00 Test Item Value Reference Range Interpretation Comments UA Nitrite (test code Negative (02/09/21 9:33 = UA Nitrite) PM) [facility] [id number] 02:33:00 Test Item Value Reference Range Interpretation Comments UA Leuk Est (test code Small *ABN*(02/09/21 = UA Leuk Est) 9:33 PM) [facility] [id number] 02:33:00 Test Item Value Reference Range Interpretation Comments UA Sq Epi (test code = UA Sq Occasional /LPF Epi) [facility] [id number] 02:33:00 Test Item Value Reference Range Interpretation Comments UA WBC (test code = 1 See_Comment [Automa sarah message] The UA WBC) system which ge nerated this result transmit sarah reference range : <=5. The reference range was not used to interpr et this result as felicitas l/abnormal. [facility] [id number] 02:33:00 Test Item Value Reference Range Interpretation Comments UA RBC (test code = 1 See_Comment [Automa sarah message] The UA RBC) system which ge nerated this result transmit sarah reference range : <=2. The reference range was not used to interpr et this result as felicitas l/abnormal. [facility] [id number] 02:33:00 Test Item Value Reference Range Interpretation Comments UA Mucus (test code = UA Mucus) Few /LPF [facility] [id number] 02:33:00 Test Item Value Reference Range Interpretation Comments UA Color (test code = Yellow *NA*(02/09/21 UA Color) 9:33 PM) [facility] [id number] 02:33:00 Test Item Value Reference Range Interpretation Comments UA Turbidity (test code = Clear (02/09/21 9:33 UA Turbidity) PM) [facility] [id number] 02:33:00 Test Item Value Reference Range Interpretation Comments UA Spec Grav (test code = UA Spec 1.017 1 Grav) [facility] [place] [facility] [id number] 02:33:00 Test Item Value Reference Range Interpretation Comments UA pH (test code = UA pH) 5.0 1 5.0-8.0 [facility] [place] [facility] [id number] 02:33:00 Test Item Value Reference Range Interpretation Comments UA Protein (test code = UA Negative mg/dL Protein) [facility] [place] [facility] [id number] 02:33:00 Test Item Value Reference Range Interpretation Comments UA Glucose (test code = UA Negative mg/dL Glucose) [facility] AND [id number] 02:33:00 Test Item Value Reference Range Interpretation Comments UA Ketones (test code = UA Negative mg/dL Ketones) [facility] [place] [facility] [id number] 02:33:00 Test Item Value Reference Range Interpretation Comments UA Bili (test code = Negative *NA*(02/09/21 UA Bili) 9:33 PM) [facility] [place] [facility] [id number] 02:33:00 Test Item Value Reference Range Interpretation Comments UA Blood (test code = Negative (02/09/21 9:33 UA Blood) PM) [facility] [place] [facility] [id number] 02:33:00 Test Item Value Reference Range Interpretation Comments UA Urobilinogen (test code = UA 2.0 0.1-1.0 Urobilinogen) [facility] [place] [facility] [id number] 02:33:00 Test Item Value Reference Range Interpretation Comments UA Nitrite (test code Negative (02/09/21 9:33 = UA Nitrite) PM) [facility] [id number] 02:33:00 Test Item Value Reference Range Interpretation Comments UA Leuk Est (test code Small *ABN*(02/09/21 = UA Leuk Est) 9:33 PM) [facility] [place] [facility] [id number] 02:33:00 Test Item Value Reference Range Interpretation Comments UA Sq Epi (test code = UA Sq Occasional /LPF Epi) [facility] AND [id number] 02:33:00 Test Item Value Reference Range Interpretation Comments UA WBC (test code = 1 See_Comment [Automa sarah message] The UA WBC) system which ge nerated this result transmit sarah reference range : <=5. The reference range was not used to interpr et this result as felicitas l/abnormal. [facility] [id number] 02:33:00 Test Item Value Reference Range Interpretation Comments UA RBC (test code = 1 See_Comment [Automa sarah message] The UA RBC) system which ge nerated this result transmit sarah reference range : <=2. The reference range was not used to interpr et this result as felicitas l/abnormal. [facility] [id number] 02:33:00 Test Item Value Reference Range Interpretation Comments UA Mucus (test code = UA Mucus) Few /LPF [facility] AND [id number] 02:33:00 Test Item Value Reference Range Interpretation Comments UA Color (test code = Yellow *NA*(02/09/21 UA Color) 9:33 PM) [facility] AND [id number] 02:33:00 Test Item Value Reference Range Interpretation Comments UA Turbidity (test code = Clear (02/09/21 9:33 UA Turbidity) PM) [facility] AND [id number] 02:33:00 Test Item Value Reference Range Interpretation Comments UA Spec Grav (test code = UA Spec 1.017 1 Grav) [facility] AND [id number] 02:33:00 Test Item Value Reference Range Interpretation Comments UA pH (test code = UA pH) 5.0 1 5.0-8.0 [facility] AND [id number] 02:33:00 Test Item Value Reference Range Interpretation Comments UA Protein (test code = UA Negative mg/dL Protein) [facility] AND [id number] 02:33:00 Test Item Value Reference Range Interpretation Comments UA Glucose (test code = UA Negative mg/dL Glucose) [facility] AND [id number] 02:33:00 Test Item Value Reference Range Interpretation Comments UA Ketones (test code = UA Negative mg/dL Ketones) [facility] [id number] 02:33:00 Test Item Value Reference Range Interpretation Comments UA Bili (test code = Negative *NA*(02/09/21 UA Bili) 9:33 PM) [facility] [id number] 02:33:00 Test Item Value Reference Range Interpretation Comments UA Blood (test code = Negative (02/09/21 9:33 UA Blood) PM) [facility] [id number] 02:33:00 Test Item Value Reference Range Interpretation Comments UA Urobilinogen (test code = UA 2.0 0.1-1.0 Urobilinogen) [facility] [id number] 02:33:00 Test Item Value Reference Range Interpretation Comments UA Nitrite (test code Negative (02/09/21 9:33 = UA Nitrite) PM) [facility] [id number] 02:33:00 Test Item Value Reference Range Interpretation Comments UA Leuk Est (test code Small *ABN*(02/09/21 = UA Leuk Est) 9:33 PM) [facility] [id number] 02:33:00 Test Item Value Reference Range Interpretation Comments UA Sq Epi (test code = UA Sq Occasional /LPF Epi) [facility] [id number] 02:33:00 Test Item Value Reference Range Interpretation Comments UA WBC (test code = 1 See_Comment [Automa sarah message] The UA WBC) system which ge nerated this result transmit sarah reference range : <=5. The reference range was not used to interpr et this result as felicitas l/abnormal. [facility] [id number] 02:33:00 Test Item Value Reference Range Interpretation Comments UA RBC (test code = 1 See_Comment [Automa sarah message] The UA RBC) system which ge nerated this result transmit sarah reference range : <=2. The reference range was not used to interpr et this result as felicitas l/abnormal. [facility] [id number] 02:33:00 Test Item Value Reference Range Interpretation Comments UA Mucus (test code = UA Mucus) Few /LPF [facility] [id number] 02:33:00 Test Item Value Reference Range Interpretation Comments UA Color (test code = Yellow *NA*(02/09/21 UA Color) 9:33 PM) [facility] AND [id number] 02:33:00 Test Item Value Reference Range Interpretation Comments UA Turbidity (test code = Clear (02/09/21 9:33 UA Turbidity) PM) [facility] AND [id number] 02:33:00 Test Item Value Reference Range Interpretation Comments UA Spec Grav (test code = UA Spec 1.017 1 Grav) [facility] AND [id number] 02:33:00 Test Item Value Reference Range Interpretation Comments UA pH (test code = UA pH) 5.0 1 5.0-8.0 [facility] AND [id number] 02:33:00 Test Item Value Reference Range Interpretation Comments UA Protein (test code = UA Negative mg/dL Protein) [facility] AND [id number] 02:33:00 Test Item Value Reference Range Interpretation Comments UA Glucose (test code = UA Negative mg/dL Glucose) [facility] AND [id number] 02:33:00 Test Item Value Reference Range Interpretation Comments UA Ketones (test code = UA Negative mg/dL Ketones) [facility] AND [id number] 02:33:00 Test Item Value Reference Range Interpretation Comments UA Bili (test code = Negative *NA*(02/09/21 UA Bili) 9:33 PM) [facility] AND [id number] 02:33:00 Test Item Value Reference Range Interpretation Comments UA Blood (test code = Negative (02/09/21 9:33 UA Blood) PM) [facility] AND [id number] 02:33:00 Test Item Value Reference Range Interpretation Comments UA Urobilinogen (test code = UA 2.0 0.1-1.0 Urobilinogen) [facility] AND [id number] 02:33:00 Test Item Value Reference Range Interpretation Comments UA Nitrite (test code Negative (02/09/21 9:33 = UA Nitrite) PM) [facility] AND [id number] 02:33:00 Test Item Value Reference Range Interpretation Comments UA Leuk Est (test code Small *ABN*(02/09/21 = UA Leuk Est) 9:33 PM) [facility] [id number] 02:33:00 Test Item Value Reference Range Interpretation Comments UA Sq Epi (test code = UA Sq Occasional /LPF Epi) [facility] [id number] 02:33:00 Test Item Value Reference Range Interpretation Comments UA WBC (test code = 1 See_Comment [Automa sarah message] The UA WBC) system which ge nerated this result transmit sarah reference range : <=5. The reference range was not used to interpr et this result as felicitas l/abnormal. [facility] [id number] 02:33:00 Test Item Value Reference Range Interpretation Comments UA RBC (test code = 1 See_Comment [Automa sarah message] The UA RBC) system which ge nerated this result transmit sarha reference range : <=2. The reference range was not used to interpr et this result as felicitas l/abnormal. [facility] [id number] 02:33:00 Test Item Value Reference Range Interpretation Comments UA Mucus (test code = UA Mucus) Few /LPF [facility] [id number] 02:33:00 Test Item Value Reference Range Interpretation Comments UA Color (test code = Yellow *NA*(02/09/21 UA Color) 9:33 PM) [facility] [id number] 02:33:00 Test Item Value Reference Range Interpretation Comments UA Turbidity (test code = Clear (02/09/21 9:33 UA Turbidity) PM) [facility] [id number] 02:33:00 Test Item Value Reference Range Interpretation Comments UA Spec Grav (test code = UA Spec 1.017 1 Grav) [facility] [id number] 02:33:00 Test Item Value Reference Range Interpretation Comments UA pH (test code = UA pH) 5.0 1 5.0-8.0 [facility] [id number] 02:33:00 Test Item Value Reference Range Interpretation Comments UA Protein (test code = UA Negative mg/dL Protein) [facility] [id number] 02:33:00 Test Item Value Reference Range Interpretation Comments UA Glucose (test code = UA Negative mg/dL Glucose) [facility] [id number] 02:33:00 Test Item Value Reference Range Interpretation Comments UA Ketones (test code = UA Negative mg/dL Ketones) [facility] [id number] 02:33:00 Test Item Value Reference Range Interpretation Comments UA Bili (test code = Negative *NA*(02/09/21 UA Bili) 9:33 PM) [facility] [id number] 02:33:00 Test Item Value Reference Range Interpretation Comments UA Blood (test code = Negative (02/09/21 9:33 UA Blood) PM) [facility] [id number] 02:33:00 Test Item Value Reference Range Interpretation Comments UA Urobilinogen (test code = UA 2.0 0.1-1.0 Urobilinogen) [facility] [id number] 02:33:00 Test Item Value Reference Range Interpretation Comments UA Nitrite (test code Negative (02/09/21 9:33 = UA Nitrite) PM) [facility] [id number] 02:33:00 Test Item Value Reference Range Interpretation Comments UA Leuk Est (test code Small *ABN*(02/09/21 = UA Leuk Est) 9:33 PM) [facility] [id number] 02:33:00 Test Item Value Reference Range Interpretation Comments UA Sq Epi (test code = UA Sq Occasional /LPF Epi) [facility] [id number] 02:33:00 Test Item Value Reference Range Interpretation Comments UA WBC (test code = 1 See_Comment [Automa sarah message] The UA WBC) system which ge nerated this result transmit sarah reference range : <=5. The reference range was not used to interpr et this result as felicitas l/abnormal. [facility] [id number] 02:33:00 Test Item Value Reference Range Interpretation Comments UA RBC (test code = 1 See_Comment [Automa sarah message] The UA RBC) system which ge nerated this result transmit sarah reference range : <=2. The reference range was not used to interpr et this result as felicitas l/abnormal. [facility] [id number] 02:33:00 Test Item Value Reference Range Interpretation Comments UA Mucus (test code = UA Mucus) Few /LPF [facility] AND [id number] 02:33:00 Test Item Value Reference Range Interpretation Comments UA Color (test code = Yellow *NA*(02/09/21 UA Color) 9:33 PM) [facility] AND [id number] 02:33:00 Test Item Value Reference Range Interpretation Comments UA Turbidity (test code = Clear (02/09/21 9:33 UA Turbidity) PM) [facility] AND [id number] 02:33:00 Test Item Value Reference Range Interpretation Comments UA Spec Grav (test code = UA Spec 1.017 1 Grav) [facility] AND [id number] 02:33:00 Test Item Value Reference Range Interpretation Comments UA pH (test code = UA pH) 5.0 1 5.0-8.0 [facility] AND [id number] 02:33:00 Test Item Value Reference Range Interpretation Comments UA Protein (test code = UA Negative mg/dL Protein) [facility] AND [id number] 02:33:00 Test Item Value Reference Range Interpretation Comments UA Glucose (test code = UA Negative mg/dL Glucose) [facility] AND [id number] 02:33:00 Test Item Value Reference Range Interpretation Comments UA Ketones (test code = UA Negative mg/dL Ketones) [facility] AND [id number] 02:33:00 Test Item Value Reference Range Interpretation Comments UA Bili (test code = Negative *NA*(02/09/21 UA Bili) 9:33 PM) [facility] AND [id number] 02:33:00 Test Item Value Reference Range Interpretation Comments UA Blood (test code = Negative (02/09/21 9:33 UA Blood) PM) [facility] AND [id number] 02:33:00 Test Item Value Reference Range Interpretation Comments UA Urobilinogen (test code = UA 2.0 0.1-1.0 Urobilinogen) [facility] AND [id number] 02:33:00 Test Item Value Reference Range Interpretation Comments UA Nitrite (test code Negative (02/09/21 9:33 = UA Nitrite) PM) [facility] AND [id number] 02:33:00 Test Item Value Reference Range Interpretation Comments UA Leuk Est (test code Small *ABN*(02/09/21 = UA Leuk Est) 9:33 PM) [facility] [id number] 02:33:00 Test Item Value Reference Range Interpretation Comments UA Sq Epi (test code = UA Sq Occasional /LPF Epi) [facility] [id number] 02:33:00 Test Item Value Reference Range Interpretation Comments UA WBC (test code = 1 See_Comment [Automa sarah message] The UA WBC) system which ge nerated this result transmit sarah reference range : <=5. The reference range was not used to interpr et this result as felicitas l/abnormal. [facility] [id number] 02:33:00 Test Item Value Reference Range Interpretation Comments UA RBC (test code = 1 See_Comment [Automa sarah message] The UA RBC) system which ge nerated this result transmit sarah reference range : <=2. The reference range was not used to interpr et this result as felicitas l/abnormal. [facility] [id number] 02:33:00 Test Item Value Reference Range Interpretation Comments UA Mucus (test code = UA Mucus) Few /LPF [facility] [id number] 02:33:00 Test Item Value Reference Range Interpretation Comments UA Color (test code = Yellow *NA*(02/09/21 UA Color) 9:33 PM) [facility] [id number] 02:33:00 Test Item Value Reference Range Interpretation Comments UA Turbidity (test code = Clear (02/09/21 9:33 UA Turbidity) PM) [facility] [id number] 02:33:00 Test Item Value Reference Range Interpretation Comments UA Spec Grav (test code = UA Spec 1.017 1 Grav) [facility] [id number] 02:33:00 Test Item Value Reference Range Interpretation Comments UA pH (test code = UA pH) 5.0 1 5.0-8.0 [facility] [id number] 02:33:00 Test Item Value Reference Range Interpretation Comments UA Protein (test code = UA Negative mg/dL Protein) [facility] [id number] 02:33:00 Test Item Value Reference Range Interpretation Comments UA Glucose (test code = UA Negative mg/dL Glucose) [facility] [id number] 02:33:00 Test Item Value Reference Range Interpretation Comments UA Ketones (test code = UA Negative mg/dL Ketones) [facility] [id number] 02:33:00 Test Item Value Reference Range Interpretation Comments UA Bili (test code = Negative *NA*(02/09/21 UA Bili) 9:33 PM) [facility] [id number] 02:33:00 Test Item Value Reference Range Interpretation Comments UA Blood (test code = Negative (02/09/21 9:33 UA Blood) PM) [facility] AND [id number] 02:33:00 Test Item Value Reference Range Interpretation Comments UA Urobilinogen (test code = UA 2.0 0.1-1.0 Urobilinogen) [facility] AND [id number] 02:33:00 Test Item Value Reference Range Interpretation Comments UA Nitrite (test code Negative (02/09/21 9:33 = UA Nitrite) PM) [facility] AND [id number] 02:33:00 Test Item Value Reference Range Interpretation Comments UA Leuk Est (test code Small *ABN*(02/09/21 = UA Leuk Est) 9:33 PM) [facility] AND [id number] 02:33:00 Test Item Value Reference Range Interpretation Comments UA Sq Epi (test code = UA Sq Occasional /LPF Epi) [facility] AND [id number] 02:33:00 Test Item Value Reference Range Interpretation Comments UA WBC (test code = 1 See_Comment [Automa sarah message] The UA WBC) system which ge nerated this result transmit sarah reference range : <=5. The reference range was not used to interpr et this result as felicitas l/abnormal. [facility] [place] [facility] [id number] 02:33:00 Test Item Value Reference Range Interpretation Comments UA RBC (test code = 1 See_Comment [Automa sarah message] The UA RBC) system which ge nerated this result transmit saarh reference range : <=2. The reference range was not used to interpr et this result as felicitas l/abnormal. [facility] [place] [facility] [id number] 02:33:00 Test Item Value Reference Range Interpretation Comments UA Mucus (test code = UA Mucus) Few /LPF [facility] AND [id number] 02:33:00 Test Item Value Reference Range Interpretation Comments UA Color (test code = Yellow *NA*(02/09/21 UA Color) 9:33 PM) [facility] AND [id number] 02:33:00 Test Item Value Reference Range Interpretation Comments UA Turbidity (test code = Clear (02/09/21 9:33 UA Turbidity) PM) [facility] AND [id number] 02:33:00 Test Item Value Reference Range Interpretation Comments UA Spec Grav (test code = UA Spec 1.017 1 Grav) [facility] AND [id number] 02:33:00 Test Item Value Reference Range Interpretation Comments UA pH (test code = UA pH) 5.0 1 5.0-8.0 [facility] AND [id number] 02:33:00 Test Item Value Reference Range Interpretation Comments UA Protein (test code = UA Negative mg/dL Protein) [facility] AND [id number] 02:33:00 Test Item Value Reference Range Interpretation Comments UA Glucose (test code = UA Negative mg/dL Glucose) [facility] AND [id number] 02:33:00 Test Item Value Reference Range Interpretation Comments UA Ketones (test code = UA Negative mg/dL Ketones) [facility] AND [id number] 02:33:00 Test Item Value Reference Range Interpretation Comments UA Bili (test code = Negative *NA*(02/09/21 UA Bili) 9:33 PM) [facility] AND [id number] 02:33:00 Test Item Value Reference Range Interpretation Comments UA Blood (test code = Negative (02/09/21 9:33 UA Blood) PM) [facility] AND [id number] 02:33:00 Test Item Value Reference Range Interpretation Comments UA Urobilinogen (test code = UA 2.0 0.1-1.0 Urobilinogen) [facility] AND [id number] 02:33:00 Test Item Value Reference Range Interpretation Comments UA Nitrite (test code Negative (02/09/21 9:33 = UA Nitrite) PM) [facility] [id number] 02:33:00 Test Item Value Reference Range Interpretation Comments UA Leuk Est (test code Small *ABN*(02/09/21 = UA Leuk Est) 9:33 PM) [facility] [id number] 02:33:00 Test Item Value Reference Range Interpretation Comments UA Sq Epi (test code = UA Sq Occasional /LPF Epi) [facility] [id number] 02:33:00 Test Item Value Reference Range Interpretation Comments UA WBC (test code = 1 See_Comment [Automa sarah message] The UA WBC) system which ge nerated this result transmit sarah reference range : <=5. The reference range was not used to interpr et this result as felicitas l/abnormal. [facility] [id number] 02:33:00 Test Item Value Reference Range Interpretation Comments UA RBC (test code = 1 See_Comment [Automa sarah message] The UA RBC) system which ge nerated this result transmit sarah reference range : <=2. The reference range was not used to interpr et this result as felicitas l/abnormal. [facility] [id number] 02:33:00 Test Item Value Reference Range Interpretation Comments UA Mucus (test code = UA Mucus) Few /LPF [facility] [id number] 02:33:00 Test Item Value Reference Range Interpretation Comments UA Color (test code = Yellow *NA*(02/09/21 UA Color) 9:33 PM) [facility] [id number] 02:33:00 Test Item Value Reference Range Interpretation Comments UA Turbidity (test code = Clear (02/09/21 9:33 UA Turbidity) PM) [facility] [id number] 02:33:00 Test Item Value Reference Range Interpretation Comments UA Spec Grav (test code = UA Spec 1.017 1 Grav) [facility] [id number] 02:33:00 Test Item Value Reference Range Interpretation Comments UA pH (test code = UA pH) 5.0 1 5.0-8.0 [facility] [id number] 02:33:00 Test Item Value Reference Range Interpretation Comments UA Protein (test code = UA Negative mg/dL Protein) [facility] [id number] 02:33:00 Test Item Value Reference Range Interpretation Comments UA Glucose (test code = UA Negative mg/dL Glucose) [facility] [id number] 02:33:00 Test Item Value Reference Range Interpretation Comments UA Ketones (test code = UA Negative mg/dL Ketones) [facility] [place] [facility] [id number] 02:33:00 Test Item Value Reference Range Interpretation Comments UA Bili (test code = Negative *NA*(02/09/21 UA Bili) 9:33 PM) [facility] AND [id number] 02:33:00 Test Item Value Reference Range Interpretation Comments UA Blood (test code = Negative (02/09/21 9:33 UA Blood) PM) [facility] AND [id number] 02:33:00 Test Item Value Reference Range Interpretation Comments UA Urobilinogen (test code = UA 2.0 0.1-1.0 Urobilinogen) [facility] AND [id number] 02:33:00 Test Item Value Reference Range Interpretation Comments UA Nitrite (test code Negative (02/09/21 9:33 = UA Nitrite) PM) [facility] AND [id number] 02:33:00 Test Item Value Reference Range Interpretation Comments UA Leuk Est (test code Small *ABN*(02/09/21 = UA Leuk Est) 9:33 PM) [facility] AND [id number] 02:33:00 Test Item Value Reference Range Interpretation Comments UA Sq Epi (test code = UA Sq Occasional /LPF Epi) [facility] AND [id number] 02:33:00 Test Item Value Reference Range Interpretation Comments UA WBC (test code = 1 See_Comment [Automa sarah message] The UA WBC) system which ge nerated this result transmit sarah reference range : <=5. The reference range was not used to interpr et this result as felicitas l/abnormal. [facility] [place] [id number] 02:33:00 Test Item Value Reference Range Interpretation Comments UA RBC (test code = 1 See_Comment [Automa sarah message] The UA RBC) system which ge nerated this result transmit sarah reference range : <=2. The reference range was not used to interpr et this result as felicitas l/abnormal. [facility] AND [id number] 02:33:00 Test Item Value Reference Range Interpretation Comments UA Mucus (test code = UA Mucus) Few /LPF [facility] AND [id number] 02:33:00 Test Item Value Reference Range Interpretation Comments UA Color (test code = Yellow *NA*(02/09/21 UA Color) 9:33 PM) [facility] AND [id number] 02:33:00 Test Item Value Reference Range Interpretation Comments UA Turbidity (test code = Clear (02/09/21 9:33 UA Turbidity) PM) [facility] AND [id number] 02:33:00 Test Item Value Reference Range Interpretation Comments UA Spec Grav (test code = UA Spec 1.017 1 Grav) [facility] AND [id number] 02:33:00 Test Item Value Reference Range Interpretation Comments UA pH (test code = UA pH) 5.0 1 5.0-8.0 [facility] AND [id number] 02:33:00 Test Item Value Reference Range Interpretation Comments UA Protein (test code = UA Negative mg/dL Protein) [facility] AND [id number] 02:33:00 Test Item Value Reference Range Interpretation Comments UA Glucose (test code = UA Negative mg/dL Glucose) [facility] AND [id number] 02:33:00 Test Item Value Reference Range Interpretation Comments UA Ketones (test code = UA Negative mg/dL Ketones) [facility] AND [id number] 02:33:00 Test Item Value Reference Range Interpretation Comments UA Bili (test code = Negative *NA*(02/09/21 UA Bili) 9:33 PM) [facility] AND [id number] 02:33:00 Test Item Value Reference Range Interpretation Comments UA Blood (test code = Negative (02/09/21 9:33 UA Blood) PM) [facility] AND [id number] 02:33:00 Test Item Value Reference Range Interpretation Comments UA Urobilinogen (test code = UA 2.0 0.1-1.0 Urobilinogen) [facility] AND [id number] 02:33:00 Test Item Value Reference Range Interpretation Comments UA Nitrite (test code Negative (02/09/21 9:33 = UA Nitrite) PM) [facility] [id number] 02:33:00 Test Item Value Reference Range Interpretation Comments UA Leuk Est (test code Small *ABN*(02/09/21 = UA Leuk Est) 9:33 PM) [facility] [id number] 02:33:00 Test Item Value Reference Range Interpretation Comments UA Sq Epi (test code = UA Sq Occasional /LPF Epi) [facility] [id number] 02:33:00 Test Item Value Reference Range Interpretation Comments UA WBC (test code = 1 See_Comment [Automa sarah message] The UA WBC) system which ge nerated this result transmit sarah reference range : <=5. The reference range was not used to interpr et this result as felicitas l/abnormal. [facility] [id number] 02:33:00 Test Item Value Reference Range Interpretation Comments UA RBC (test code = 1 See_Comment [Automa sarah message] The UA RBC) system which ge nerated this result transmit sarah reference range : <=2. The reference range was not used to interpr et this result as felicitas l/abnormal. [facility] [id number] 02:33:00 Test Item Value Reference Range Interpretation Comments UA Mucus (test code = UA Mucus) Few /LPF [facility] [id number] 02:33:00 Test Item Value Reference Range Interpretation Comments UA Color (test code = Yellow *NA*(02/09/21 UA Color) 9:33 PM) [facility] [id number] 02:33:00 Test Item Value Reference Range Interpretation Comments UA Turbidity (test code = Clear (02/09/21 9:33 UA Turbidity) PM) [facility] [id number] 02:33:00 Test Item Value Reference Range Interpretation Comments UA Spec Grav (test code = UA Spec 1.017 1 Grav) [facility] [id number] 02:33:00 Test Item Value Reference Range Interpretation Comments UA pH (test code = UA pH) 5.0 1 5.0-8.0 [facility] [id number] 02:33:00 Test Item Value Reference Range Interpretation Comments UA Protein (test code = UA Negative mg/dL Protein) [facility] AND [id number] 02:33:00 Test Item Value Reference Range Interpretation Comments UA Glucose (test code = UA Negative mg/dL Glucose) [facility] [facility] [id number] 02:33:00 Test Item Value Reference Range Interpretation Comments UA Ketones (test code = UA Negative mg/dL Ketones) [facility] AND [id number] 02:33:00 Test Item Value Reference Range Interpretation Comments UA Bili (test code = Negative *NA*(02/09/21 UA Bili) 9:33 PM) [facility] AND [id number] 02:33:00 Test Item Value Reference Range Interpretation Comments UA Blood (test code = Negative (02/09/21 9:33 UA Blood) PM) [facility] AND [id number] 02:33:00 Test Item Value Reference Range Interpretation Comments UA Urobilinogen (test code = UA 2.0 0.1-1.0 Urobilinogen) [facility] AND [id number] 02:33:00 Test Item Value Reference Range Interpretation Comments UA Nitrite (test code Negative (02/09/21 9:33 = UA Nitrite) PM) [facility] AND [id number] 02:33:00 Test Item Value Reference Range Interpretation Comments UA Leuk Est (test code Small *ABN*(02/09/21 = UA Leuk Est) 9:33 PM) [facility] AND [id number] 02:33:00 Test Item Value Reference Range Interpretation Comments UA Sq Epi (test code = UA Sq Occasional /LPF Epi) [facility] AND [id number] 02:33:00 Test Item Value Reference Range Interpretation Comments UA WBC (test code = 1 See_Comment [Automa sarah message] The UA WBC) system which ge nerated this result transmit sarah reference range : <=5. The reference range was not used to interpr et this result as felicitas l/abnormal. [facility] AND [id number] 02:33:00 Test Item Value Reference Range Interpretation Comments UA RBC (test code = 1 See_Comment [Automa sarah message] The UA RBC) system which ge nerated this result transmit sarah reference range : <=2. The reference range was not used to interpr et this result as felicitas l/abnormal. [facility] AND [id number] 02:33:00 Test Item Value Reference Range Interpretation Comments UA Mucus (test code = UA Mucus) Few /LPF [facility] AND [id number] 02:33:00 Test Item Value Reference Range Interpretation Comments UA Color (test code = Yellow *NA*(02/09/21 UA Color) 9:33 PM) [facility] AND [id number] 02:33:00 Test Item Value Reference Range Interpretation Comments UA Turbidity (test code = Clear (02/09/21 9:33 UA Turbidity) PM) [facility] AND [id number] 02:33:00 Test Item Value Reference Range Interpretation Comments UA Spec Grav (test code = UA Spec 1.017 1 Grav) [facility] AND [id number] 02:33:00 Test Item Value Reference Range Interpretation Comments UA pH (test code = UA pH) 5.0 1 5.0-8.0 [facility] AND [id number] 02:33:00 Test Item Value Reference Range Interpretation Comments UA Protein (test code = UA Negative mg/dL Protein) [facility] AND [id number] 02:33:00 Test Item Value Reference Range Interpretation Comments UA Glucose (test code = UA Negative mg/dL Glucose) [facility] AND [id number] 02:33:00 Test Item Value Reference Range Interpretation Comments UA Ketones (test code = UA Negative mg/dL Ketones) [facility] AND [id number] 02:33:00 Test Item Value Reference Range Interpretation Comments UA Bili (test code = Negative *NA*(02/09/21 UA Bili) 9:33 PM) [facility] AND [id number] 02:33:00 Test Item Value Reference Range Interpretation Comments UA Blood (test code = Negative (02/09/21 9:33 UA Blood) PM) [facility] AND [id number] 02:33:00 Test Item Value Reference Range Interpretation Comments UA Urobilinogen (test code = UA 2.0 0.1-1.0 [facility]ilinogen) [facility] [id number] 02:33:00 Test Item Value Reference Range Interpretation Comments UA Nitrite (test code Negative (02/09/21 9:33 = UA Nitrite) PM) [facility] [id number] 02:33:00 Test Item Value Reference Range Interpretation Comments UA Leuk Est (test code Small *ABN*(02/09/21 = UA Leuk Est) 9:33 PM) [facility] [id number] 02:33:00 Test Item Value Reference Range Interpretation Comments UA Sq Epi (test code = UA Sq Occasional /LPF Epi) [facility] [id number] 02:33:00 Test Item Value Reference Range Interpretation Comments UA WBC (test code = 1 See_Comment [Automa sarah message] The UA WBC) system which ge nerated this result transmit sarah reference range : <=5. The reference range was not used to interpr et this result as felicitas l/abnormal. [facility] [id number] 02:33:00 Test Item Value Reference Range Interpretation Comments UA RBC (test code = 1 See_Comment [Automa sarah message] The UA RBC) system which ge nerated this result transmit sarah reference range : <=2. The reference range was not used to interpr et this result as felicitas l/abnormal. [facility] [place] [id number] 02:33:00 Test Item Value Reference Range Interpretation Comments UA Mucus (test code = UA Mucus) Few /LPF [facility] [id number] 02:33:00 Test Item Value Reference Range Interpretation Comments UA Color (test code = Yellow *NA*(02/09/21 UA Color) 9:33 PM) [facility] [id number] 02:33:00 Test Item Value Reference Range Interpretation Comments UA Turbidity (test code = Clear (02/09/21 9:33 UA Turbidity) PM) [facility] [id number] 02:33:00 Test Item Value Reference Range Interpretation Comments UA Spec Grav (test code = UA Spec 1.017 1 Grav) [facility] [id number] 02:33:00 Test Item Value Reference Range Interpretation Comments UA pH (test code = UA pH) 5.0 1 5.0-8.0 [facility] AND [id number] 02:33:00 Test Item Value Reference Range Interpretation Comments UA Protein (test code = UA Negative mg/dL Protein) [facility] [id number] 02:33:00 Test Item Value Reference Range Interpretation Comments UA Glucose (test code = UA Negative mg/dL Glucose) [facility] [id number] 02:33:00 Test Item Value Reference Range Interpretation Comments UA Ketones (test code = UA Negative mg/dL Ketones) [facility] [id number] 02:33:00 Test Item Value Reference Range Interpretation Comments UA Bili (test code = Negative *NA*(02/09/21 UA Bili) 9:33 PM) [facility] AND [id number] 02:33:00 Test Item Value Reference Range Interpretation Comments UA Blood (test code = Negative (02/09/21 9:33 UA Blood) PM) [facility] AND [id number] 02:33:00 Test Item Value Reference Range Interpretation Comments UA Urobilinogen (test code = UA 2.0 0.1-1.0 Urobilinogen) [facility] AND [id number] 02:33:00 Test Item Value Reference Range Interpretation Comments UA Nitrite (test code Negative (02/09/21 9:33 = UA Nitrite) PM) [facility] AND [id number] 02:33:00 Test Item Value Reference Range Interpretation Comments UA Leuk Est (test code Small *ABN*(02/09/21 = UA Leuk Est) 9:33 PM) [facility] AND [id number] 02:33:00 Test Item Value Reference Range Interpretation Comments UA Sq Epi (test code = UA Sq Occasional /LPF Epi) [facility] AND [id number] 02:33:00 Test Item Value Reference Range Interpretation Comments UA WBC (test code = 1 See_Comment [Automa sarah message] The UA WBC) system which ge nerated this result transmit sarah reference range : <=5. The reference range was not used to interpr et this result as felicitas l/abnormal. [facility] AND [id number] 02:33:00 Test Item Value Reference Range Interpretation Comments UA RBC (test code = 1 See_Comment [Automa sarah message] The UA RBC) system which ge nerated this result transmit sarah reference range : <=2. The reference range was not used to interpr et this result as felicitas l/abnormal. [facility] AND [id number] 02:33:00 Test Item Value Reference Range Interpretation Comments UA Mucus (test code = UA Mucus) Few /LPF [facility] AND [id number] 02:33:00 Test Item Value Reference Range Interpretation Comments UA Color (test code = Yellow *NA*(02/09/21 UA Color) 9:33 PM) [facility] AND [id number] 02:33:00 Test Item Value Reference Range Interpretation Comments UA Turbidity (test code = Clear (02/09/21 9:33 UA Turbidity) PM) [facility] AND [id number] 02:33:00 Test Item Value Reference Range Interpretation Comments UA Spec Grav (test code = UA Spec 1.017 1 Grav) [facility] AND [id number] 02:33:00 Test Item Value Reference Range Interpretation Comments UA pH (test code = UA pH) 5.0 1 5.0-8.0 [facility] AND [id number] 02:33:00 Test Item Value Reference Range Interpretation Comments UA Protein (test code = UA Negative mg/dL Protein) [facility] AND [id number] 02:33:00 Test Item Value Reference Range Interpretation Comments UA Glucose (test code = UA Negative mg/dL Glucose) [facility] AND [id number] 02:33:00 Test Item Value Reference Range Interpretation Comments UA Ketones (test code = UA Negative mg/dL Ketones) [facility] AND [id number] 02:33:00 Test Item Value Reference Range Interpretation Comments UA Bili (test code = Negative *NA*(02/09/21 UA Bili) 9:33 PM) [facility] AND [id number] 02:33:00 Test Item Value Reference Range Interpretation Comments UA Blood (test code = Negative (02/09/21 9:33 UA Blood) PM) [facility] AND [id number] 02:33:00 Test Item Value Reference Range Interpretation Comments UA Urobilinogen (test code = UA 2.0 0.1-1.0 Urobilinogen) [facility] [id number] 02:33:00 Test Item Value Reference Range Interpretation Comments UA Nitrite (test code Negative (02/09/21 9:33 = UA Nitrite) PM) [facility] [id number] 02:33:00 Test Item Value Reference Range Interpretation Comments UA Leuk Est (test code Small *ABN*(02/09/21 = UA Leuk Est) 9:33 PM) [facility] [id number] 02:33:00 Test Item Value Reference Range Interpretation Comments UA Sq Epi (test code = UA Sq Occasional /LPF Epi) [facility] [id number] 02:33:00 Test Item Value Reference Range Interpretation Comments UA WBC (test code = 1 See_Comment [Automa sarah message] The UA WBC) system which ge nerated this result transmit sarah reference range : <=5. The reference range was not used to interpr et this result as felicitas l/abnormal. [facility] [id number] 02:33:00 Test Item Value Reference Range Interpretation Comments UA RBC (test code = 1 See_Comment [Automa sarah message] The UA RBC) system which ge nerated this result transmit sarah reference range : <=2. The reference range was not used to interpr et this result as felicitas l/abnormal. [facility] [id number] 02:33:00 Test Item Value Reference Range Interpretation Comments UA Mucus (test code = UA Mucus) Few /LPF [facility] [id number] 02:33:00 Test Item Value Reference Range Interpretation Comments UA Color (test code = Yellow *NA*(02/09/21 UA Color) 9:33 PM) [facility] [id number] 02:33:00 Test Item Value Reference Range Interpretation Comments UA Turbidity (test code = Clear (02/09/21 9:33 UA Turbidity) PM) [facility] [id number] 02:33:00 Test Item Value Reference Range Interpretation Comments UA Spec Grav (test code = UA Spec 1.017 1 Grav) [facility] [id number] 02:33:00 Test Item Value Reference Range Interpretation Comments UA pH (test code = UA pH) 5.0 1 5.0-8.0 [facility] [id number] 02:33:00 Test Item Value Reference Range Interpretation Comments UA Protein (test code = UA Negative mg/dL Protein) [facility] [place] [id number] 02:33:00 Test Item Value Reference Range Interpretation Comments UA Glucose (test code = UA Negative mg/dL Glucose) [facility] [id number] 02:33:00 Test Item Value Reference Range Interpretation Comments UA Ketones (test code = UA Negative mg/dL Ketones) [facility] [place] [facility] [id number] 02:33:00 Test Item Value Reference Range Interpretation Comments UA Bili (test code = Negative *NA*(02/09/21 UA Bili) 9:33 PM) [facility] AND [id number] 02:33:00 Test Item Value Reference Range Interpretation Comments UA Blood (test code = Negative (02/09/21 9:33 UA Blood) PM) [facility] AND [id number] 02:33:00 Test Item Value Reference Range Interpretation Comments UA Urobilinogen (test code = UA 2.0 0.1-1.0 Urobilinogen) [facility] AND [id number] 02:33:00 Test Item Value Reference Range Interpretation Comments UA Nitrite (test code Negative (02/09/21 9:33 = UA Nitrite) PM) [facility] AND [id number] 02:33:00 Test Item Value Reference Range Interpretation Comments UA Leuk Est (test code Small *ABN*(02/09/21 = UA Leuk Est) 9:33 PM) [facility] AND [id number] 02:33:00 Test Item Value Reference Range Interpretation Comments UA Sq Epi (test code = UA Sq Occasional /LPF Epi) [facility] AND [id number] 02:33:00 Test Item Value Reference Range Interpretation Comments UA WBC (test code = 1 See_Comment [Automa sarah message] The UA WBC) system which ge nerated this result transmit sarah reference range : <=5. The reference range was not used to interpr et this result as felicitas l/abnormal. [facility] AND [id number] 02:33:00 Test Item Value Reference Range Interpretation Comments UA RBC (test code = 1 See_Comment [Automa sarah message] The UA RBC) system which ge nerated this result transmit sarah reference range : <=2. The reference range was not used to interpr et this result as felicitas l/abnormal. [facility] AND [id number] 02:33:00 Test Item Value Reference Range Interpretation Comments UA Mucus (test code = UA Mucus) Few /LPF [facility] AND [id number] 02:33:00 Test Item Value Reference Range Interpretation Comments UA Color (test code = Yellow *NA*(02/09/21 UA Color) 9:33 PM) [facility] AND [id number] 02:33:00 Test Item Value Reference Range Interpretation Comments UA Turbidity (test code = Clear (02/09/21 9:33 UA Turbidity) PM) [facility] AND [id number] 02:33:00 Test Item Value Reference Range Interpretation Comments UA Spec Grav (test code = UA Spec 1.017 1 Grav) [facility] AND [id number] 02:33:00 Test Item Value Reference Range Interpretation Comments UA pH (test code = UA pH) 5.0 1 5.0-8.0 [facility] AND [id number] 02:33:00 Test Item Value Reference Range Interpretation Comments UA Protein (test code = UA Negative mg/dL Protein) [facility] AND [id number] 02:33:00 Test Item Value Reference Range Interpretation Comments UA Glucose (test code = UA Negative mg/dL Glucose) [facility] AND [id number] 02:33:00 Test Item Value Reference Range Interpretation Comments UA Ketones (test code = UA Negative mg/dL Ketones) [facility] AND [id number] 02:33:00 Test Item Value Reference Range Interpretation Comments UA Bili (test code = Negative *NA*(02/09/21 UA Bili) 9:33 PM) [facility] AND [id number] 02:33:00 Test Item Value Reference Range Interpretation Comments UA Blood (test code = Negative (02/09/21 9:33 UA Blood) PM) [facility] [id number] 02:33:00 Test Item Value Reference Range Interpretation Comments UA Urobilinogen (test code = UA 2.0 0.1-1.0 Urobilinogen) [facility] [id number] 02:33:00 Test Item Value Reference Range Interpretation Comments UA Nitrite (test code Negative (02/09/21 9:33 = UA Nitrite) PM) [facility] [id number] 02:33:00 Test Item Value Reference Range Interpretation Comments UA Leuk Est (test code Small *ABN*(02/09/21 = UA Leuk Est) 9:33 PM) [facility] [id number] 02:33:00 Test Item Value Reference Range Interpretation Comments UA Sq Epi (test code = UA Sq Occasional /LPF Epi) [facility] [id number] 02:33:00 Test Item Value Reference Range Interpretation Comments UA WBC (test code = 1 See_Comment [Automa sarah message] The UA WBC) system which ge nerated this result transmit sarah reference range : <=5. The reference range was not used to interpr et this result as felicitas l/abnormal. [facility] [id number] 02:33:00 Test Item Value Reference Range Interpretation Comments UA RBC (test code = 1 See_Comment [Automa sarah message] The UA RBC) system which ge nerated this result transmit sarah reference range : <=2. The reference range was not used to interpr et this result as felicitas l/abnormal. [facility] [id number] 02:33:00 Test Item Value Reference Range Interpretation Comments UA Mucus (test code = UA Mucus) Few /LPF [facility] [id number] 02:33:00 Test Item Value Reference Range Interpretation Comments UA Color (test code = Yellow *NA*(02/09/21 UA Color) 9:33 PM) [facility] [id number] 02:33:00 Test Item Value Reference Range Interpretation Comments UA Turbidity (test code = Clear (02/09/21 9:33 UA Turbidity) PM) [facility] [id number] 02:33:00 Test Item Value Reference Range Interpretation Comments UA Spec Grav (test code = UA Spec 1.017 1 Grav) [facility] AND [id number] 02:33:00 Test Item Value Reference Range Interpretation Comments UA pH (test code = UA pH) 5.0 1 5.0-8.0 [facility] AND [id number] 02:33:00 Test Item Value Reference Range Interpretation Comments UA Protein (test code = UA Negative mg/dL Protein) [facility] AND [id number] 02:33:00 Test Item Value Reference Range Interpretation Comments UA Glucose (test code = UA Negative mg/dL Glucose) [facility] AND [id number] 02:33:00 Test Item Value Reference Range Interpretation Comments UA Ketones (test code = UA Negative mg/dL Ketones) [facility] AND [id number] 02:33:00 Test Item Value Reference Range Interpretation Comments UA Bili (test code = Negative *NA*(02/09/21 UA Bili) 9:33 PM) [facility] AND [id number] 02:33:00 Test Item Value Reference Range Interpretation Comments UA Blood (test code = Negative (02/09/21 9:33 UA Blood) PM) [facility] AND [id number] 02:33:00 Test Item Value Reference Range Interpretation Comments UA Urobilinogen (test code = UA 2.0 0.1-1.0 Urobilinogen) [facility] AND [id number] 02:33:00 Test Item Value Reference Range Interpretation Comments UA Nitrite (test code Negative (02/09/21 9:33 = UA Nitrite) PM) [facility] AND [id number] 02:33:00 Test Item Value Reference Range Interpretation Comments UA Leuk Est (test code Small *ABN*(02/09/21 = UA Leuk Est) 9:33 PM) [facility] AND [id number] 02:33:00 Test Item Value Reference Range Interpretation Comments UA Sq Epi (test code = UA Sq Occasional /LPF Epi) [facility] AND [id number] 02:33:00 Test Item Value Reference Range Interpretation Comments UA WBC (test code = 1 See_Comment [Automa sarah message] The UA WBC) system which ge nerated this result transmit sarah reference range : <=5. The reference range was not used to interpr et this result as felicitas l/abnormal. [facility] [place] [facility] [id number] 02:33:00 Test Item Value Reference Range Interpretation Comments UA RBC (test code = 1 See_Comment [Automa sarah message] The UA RBC) system which ge nerated this result transmit sarah reference range : <=2. The reference range was not used to interpr et this result as felicitas l/abnormal. [facility] [id number] 02:33:00 Test Item Value Reference Range Interpretation Comments UA Mucus (test code = UA Mucus) Few /LPF [facility] [place] [facility] [id number] 02:33:00 Test Item Value Reference Range Interpretation Comments UA Color (test code = Yellow *NA*(02/09/21 UA Color) 9:33 PM) [facility] [place] [facility] [id number] 02:33:00 Test Item Value Reference Range Interpretation Comments UA Turbidity (test code = Clear (02/09/21 9:33 UA Turbidity) PM) [facility] [place] [facility] [id number] 02:33:00 Test Item Value Reference Range Interpretation Comments UA Spec Grav (test code = UA Spec 1.017 1 Grav) [facility] AND [id number] 02:33:00 Test Item Value Reference Range Interpretation Comments UA pH (test code = UA pH) 5.0 1 5.0-8.0 [facility] AND [id number] 02:33:00 Test Item Value Reference Range Interpretation Comments UA Protein (test code = UA Negative mg/dL Protein) [facility] [id number] 02:33:00 Test Item Value Reference Range Interpretation Comments UA Glucose (test code = UA Negative mg/dL Glucose) [facility] [id number] 02:33:00 Test Item Value Reference Range Interpretation Comments UA Ketones (test code = UA Negative mg/dL Ketones) [facility] [place] [facility] [id number] 02:33:00 Test Item Value Reference Range Interpretation Comments UA Bili (test code = Negative *NA*(02/09/21 UA Bili) 9:33 PM) [facility] [id number] 02:33:00 Test Item Value Reference Range Interpretation Comments UA Blood (test code = Negative (02/09/21 9:33 UA Blood) PM) [facility] [id number] 02:33:00 Test Item Value Reference Range Interpretation Comments UA Urobilinogen (test code = UA 2.0 0.1-1.0 Urobilinogen) [facility] [place] [facility] [id number] 02:33:00 Test Item Value Reference Range Interpretation Comments UA Nitrite (test code Negative (02/09/21 9:33 = UA Nitrite) PM) [facility] AND [id number] 02:33:00 Test Item Value Reference Range Interpretation Comments UA Leuk Est (test code Small *ABN*(02/09/21 = UA Leuk Est) 9:33 PM) [facility] AND [id number] 02:33:00 Test Item Value Reference Range Interpretation Comments UA Sq Epi (test code = UA Sq Occasional /LPF Epi) [facility] AND [id number] 02:33:00 Test Item Value Reference Range Interpretation Comments UA WBC (test code = 1 See_Comment [Automa sarah message] The UA WBC) system which ge nerated this result transmit sarah reference range : <=5. The reference range was not used to interpr et this result as felicitas l/abnormal. [facility] AND [id number] 02:33:00 Test Item Value Reference Range Interpretation Comments UA RBC (test code = 1 See_Comment [Automa sarah message] The UA RBC) system which ge nerated this result transmit sarah reference range : <=2. The reference range was not used to interpr et this result as felicitas l/abnormal. [facility] [place] [facility] [id number] 02:33:00 Test Item Value Reference Range Interpretation Comments UA Mucus (test code = UA Mucus) Few /LPF [facility] AND [id number] 02:33:00 Test Item Value Reference Range Interpretation Comments UA Color (test code = Yellow *NA*(02/09/21 UA Color) 9:33 PM) [facility] AND [id number] 02:33:00 Test Item Value Reference Range Interpretation Comments UA Turbidity (test code = Clear (02/09/21 9:33 UA Turbidity) PM) [facility] AND [id number] 02:33:00 Test Item Value Reference Range Interpretation Comments UA Spec Grav (test code = UA Spec 1.017 1 Grav) [facility] AND [id number] 02:33:00 Test Item Value Reference Range Interpretation Comments UA pH (test code = UA pH) 5.0 1 5.0-8.0 [facility] AND [id number] 02:33:00 Test Item Value Reference Range Interpretation Comments UA Protein (test code = UA Negative mg/dL Protein) [facility] AND [id number] 02:33:00 Test Item Value Reference Range Interpretation Comments UA Glucose (test code = UA Negative mg/dL Glucose) [facility] AND [id number] 02:33:00 Test Item Value Reference Range Interpretation Comments UA Ketones (test code = UA Negative mg/dL Ketones) [facility] AND [id number] 02:33:00 Test Item Value Reference Range Interpretation Comments UA Bili (test code = Negative *NA*(02/09/21 UA Bili) 9:33 PM) [facility] AND [id number] 02:33:00 Test Item Value Reference Range Interpretation Comments UA Blood (test code = Negative (02/09/21 9:33 UA Blood) PM) [facility] AND [id number] 02:33:00 Test Item Value Reference Range Interpretation Comments UA Urobilinogen (test code = UA 2.0 0.1-1.0 Urobilinogen) [facility] AND [id number] 02:33:00 Test Item Value Reference Range Interpretation Comments UA Nitrite (test code Negative (02/09/21 9:33 = UA Nitrite) PM) [facility] AND [id number] 02:33:00 Test Item Value Reference Range Interpretation Comments UA Leuk Est (test code Small *ABN*(02/09/21 = UA Leuk Est) 9:33 PM) [facility] AND [id number] 02:33:00 Test Item Value Reference Range Interpretation Comments UA Sq Epi (test code = UA Sq Occasional /LPF Epi) [facility] AND [id number] 02:33:00 Test Item Value Reference Range Interpretation Comments UA WBC (test code = 1 See_Comment [Automa sarah message] The UA WBC) system which ge nerated this result transmit sarah reference range : <=5. The reference range was not used to interpr et this result as felicitas l/abnormal. [facility] [id number] 02:33:00 Test Item Value Reference Range Interpretation Comments UA RBC (test code = 1 See_Comment [Automa sarah message] The UA RBC) system which ge nerated this result transmit sarah reference range : <=2. The reference range was not used to interpr et this result as felicitas l/abnormal. [facility] AND [id number] 02:33:00 Test Item Value Reference Range Interpretation Comments UA Mucus (test code = UA Mucus) Few /LPF [facility] AND [id number] 02:33:00 Test Item Value Reference Range Interpretation Comments UA Color (test code = Yellow *NA*(02/09/21 UA Color) 9:33 PM) [facility] AND [id number] 02:33:00 Test Item Value Reference Range Interpretation Comments UA Turbidity (test code = Clear (02/09/21 9:33 UA Turbidity) PM) [facility] AND [id number] 02:33:00 Test Item Value Reference Range Interpretation Comments UA Spec Grav (test code = UA Spec 1.017 1 Grav) [facility] AND [id number] 02:33:00 Test Item Value Reference Range Interpretation Comments UA pH (test code = UA pH) 5.0 1 5.0-8.0 [facility] AND [id number] 02:33:00 Test Item Value Reference Range Interpretation Comments UA Protein (test code = UA Negative mg/dL Protein) [facility] AND [id number] 02:33:00 Test Item Value Reference Range Interpretation Comments UA Glucose (test code = UA Negative mg/dL Glucose) [facility] AND [id number] 02:33:00 Test Item Value Reference Range Interpretation Comments UA Ketones (test code = UA Negative mg/dL Ketones) [facility] AND [id number] 02:33:00 Test Item Value Reference Range Interpretation Comments UA Bili (test code = Negative *NA*(02/09/21 UA Bili) 9:33 PM) [facility] [id number] 02:33:00 Test Item Value Reference Range Interpretation Comments UA Blood (test code = Negative (02/09/21 9:33 UA Blood) PM) [facility] [id number] 02:33:00 Test Item Value Reference Range Interpretation Comments UA Urobilinogen (test code = UA 2.0 0.1-1.0 Urobilinogen) [facility] [id number] 02:33:00 Test Item Value Reference Range Interpretation Comments UA Nitrite (test code Negative (02/09/21 9:33 = UA Nitrite) PM) [facility] [id number] 02:33:00 Test Item Value Reference Range Interpretation Comments UA Leuk Est (test code Small *ABN*(02/09/21 = UA Leuk Est) 9:33 PM) [facility] [id number] 02:33:00 Test Item Value Reference Range Interpretation Comments UA Sq Epi (test code = UA Sq Occasional /LPF Epi) [facility] [id number] 02:33:00 Test Item Value Reference Range Interpretation Comments UA WBC (test code = 1 See_Comment [Automa sarah message] The UA WBC) system which ge nerated this result transmit sarah reference range : <=5. The reference range was not used to interpr et this result as felicitas l/abnormal. [facility] [id number] 02:33:00 Test Item Value Reference Range Interpretation Comments UA RBC (test code = 1 See_Comment [Automa sarah message] The UA RBC) system which ge nerated this result transmit sarah reference range : <=2. The reference range was not used to interpr et this result as felicitas l/abnormal. [facility] [id number] 02:33:00 Test Item Value Reference Range Interpretation Comments UA Mucus (test code = UA Mucus) Few /LPF [facility] [id number] 02:33:00 Test Item Value Reference Range Interpretation Comments UA Color (test code = Yellow *NA*(02/09/21 UA Color) 9:33 PM) [facility] [id number] 02:33:00 Test Item Value Reference Range Interpretation Comments UA Turbidity (test code = Clear (02/09/21 9:33 UA Turbidity) PM) [facility] AND [id number] 02:33:00 Test Item Value Reference Range Interpretation Comments UA Spec Grav (test code = UA Spec 1.017 1 Grav) [facility] AND [id number] 02:33:00 Test Item Value Reference Range Interpretation Comments UA pH (test code = UA pH) 5.0 1 5.0-8.0 [facility] AND [id number] 02:33:00 Test Item Value Reference Range Interpretation Comments UA Protein (test code = UA Negative mg/dL Protein) [facility] AND [id number] 02:33:00 Test Item Value Reference Range Interpretation Comments UA Glucose (test code = UA Negative mg/dL Glucose) [facility] AND [id number] 02:33:00 Test Item Value Reference Range Interpretation Comments UA Ketones (test code = UA Negative mg/dL Ketones) [facility] AND [id number] 02:33:00 Test Item Value Reference Range Interpretation Comments UA Bili (test code = Negative *NA*(02/09/21 UA Bili) 9:33 PM) [facility] AND [id number] 02:33:00 Test Item Value Reference Range Interpretation Comments UA Blood (test code = Negative (02/09/21 9:33 UA Blood) PM) [facility] AND [id number] 02:33:00 Test Item Value Reference Range Interpretation Comments UA Urobilinogen (test code = UA 2.0 0.1-1.0 Urobilinogen) [facility] AND [id number] 02:33:00 Test Item Value Reference Range Interpretation Comments UA Nitrite (test code Negative (02/09/21 9:33 = UA Nitrite) PM) [facility] AND [id number] 02:33:00 Test Item Value Reference Range Interpretation Comments UA Leuk Est (test code Small *ABN*(02/09/21 = UA Leuk Est) 9:33 PM) [facility] AND [id number] 02:33:00 Test Item Value Reference Range Interpretation Comments UA Sq Epi (test code = UA Sq Occasional /LPF Epi) [facility] [id number] 02:33:00 Test Item Value Reference Range Interpretation Comments UA WBC (test code = 1 See_Comment [Automa sarah message] The UA WBC) system which ge nerated this result transmit sarah reference range : <=5. The reference range was not used to interpr et this result as felicitas l/abnormal. [facility] [id number] 02:33:00 Test Item Value Reference Range Interpretation Comments UA RBC (test code = 1 See_Comment [Automa sarah message] The UA RBC) system which ge nerated this result transmit sarah reference range : <=2. The reference range was not used to interpr et this result as felicitas l/abnormal. [facility] [facility] [id number] 02:33:00 Test Item Value Reference Range Interpretation Comments UA Mucus (test code = UA Mucus) Few /LPF [facility] [id number] 02:33:00 Test Item Value Reference Range Interpretation Comments UA Color (test code = Yellow *NA*(02/09/21 UA Color) 9:33 PM) [facility] [id number] 02:33:00 Test Item Value Reference Range Interpretation Comments UA Turbidity (test code = Clear (02/09/21 9:33 UA Turbidity) PM) [facility] [id number] 02:33:00 Test Item Value Reference Range Interpretation Comments UA Spec Grav (test code = UA Spec 1.017 1 Grav) [facility] AND [id number] 02:33:00 Test Item Value Reference Range Interpretation Comments UA pH (test code = UA pH) 5.0 1 5.0-8.0 [facility] [id number] 02:33:00 Test Item Value Reference Range Interpretation Comments UA Protein (test code = UA Negative mg/dL Protein) [facility] [id number] 02:33:00 Test Item Value Reference Range Interpretation Comments UA Glucose (test code = UA Negative mg/dL Glucose) [facility] [place] [facility] [id number] 02:33:00 Test Item Value Reference Range Interpretation Comments UA Ketones (test code = UA Negative mg/dL Ketones) [facility] [id number] 02:33:00 Test Item Value Reference Range Interpretation Comments UA Bili (test code = Negative *NA*(02/09/21 UA Bili) 9:33 PM) [facility] [id number] 02:33:00 Test Item Value Reference Range Interpretation Comments UA Blood (test code = Negative (02/09/21 9:33 UA Blood) PM) [facility] [id number] 02:33:00 Test Item Value Reference Range Interpretation Comments UA Urobilinogen (test code = UA 2.0 0.1-1.0 Urobilinogen) [facility] [id number] 02:33:00 Test Item Value Reference Range Interpretation Comments UA Nitrite (test code Negative (02/09/21 9:33 = UA Nitrite) PM) [facility] [id number] 02:33:00 Test Item Value Reference Range Interpretation Comments UA Leuk Est (test code Small *ABN*(02/09/21 = UA Leuk Est) 9:33 PM) [facility] [id number] 02:33:00 Test Item Value Reference Range Interpretation Comments UA Sq Epi (test code = UA Sq Occasional /LPF Epi) [facility] [id number] 02:33:00 Test Item Value Reference Range Interpretation Comments UA WBC (test code = 1 See_Comment [Automa sarah message] The UA WBC) system which ge nerated this result transmit sarah reference range : <=5. The reference range was not used to interpr et this result as felicitas l/abnormal. [facility] [id number] 02:33:00 Test Item Value Reference Range Interpretation Comments UA RBC (test code = 1 See_Comment [Automa sarah message] The UA RBC) system which ge nerated this result transmit sarah reference range : <=2. The reference range was not used to interpr et this result as felicitas l/abnormal. [facility] [id number] 02:33:00 Test Item Value Reference Range Interpretation Comments UA Mucus (test code = UA Mucus) Few /LPF [facility] [id number] 02:33:00 Test Item Value Reference Range Interpretation Comments UA Color (test code = Yellow *NA*(02/09/21 UA Color) 9:33 PM) [facility] [place] [id number] 02:33:00 Test Item Value Reference Range Interpretation Comments UA Turbidity (test code = Clear (02/09/21 9:33 UA Turbidity) PM) [facility] [id number] 02:33:00 Test Item Value Reference Range Interpretation Comments UA Spec Grav (test code = UA Spec 1.017 1 Grav) [facility] AND [id number] 02:33:00 Test Item Value Reference Range Interpretation Comments UA pH (test code = UA pH) 5.0 1 5.0-8.0 [facility] AND [id number] 02:33:00 Test Item Value Reference Range Interpretation Comments UA Protein (test code = UA Negative mg/dL Protein) [facility] AND [id number] 02:33:00 Test Item Value Reference Range Interpretation Comments UA Glucose (test code = UA Negative mg/dL Glucose) [facility] AND [id number] 02:33:00 Test Item Value Reference Range Interpretation Comments UA Ketones (test code = UA Negative mg/dL Ketones) [facility] AND [id number] 02:33:00 Test Item Value Reference Range Interpretation Comments UA Bili (test code = Negative *NA*(02/09/21 UA Bili) 9:33 PM) [facility] AND [id number] 02:33:00 Test Item Value Reference Range Interpretation Comments UA Blood (test code = Negative (02/09/21 9:33 UA Blood) PM) [facility] AND [id number] 02:33:00 Test Item Value Reference Range Interpretation Comments UA Urobilinogen (test code = UA 2.0 0.1-1.0 Urobilinogen) [facility] AND [id number] 02:33:00 Test Item Value Reference Range Interpretation Comments UA Nitrite (test code Negative (02/09/21 9:33 = UA Nitrite) PM) [facility] AND [id number] 02:33:00 Test Item Value Reference Range Interpretation Comments UA Leuk Est (test code Small *ABN*(02/09/21 = UA Leuk Est) 9:33 PM) [facility] AND [id number] 02:33:00 Test Item Value Reference Range Interpretation Comments UA Sq Epi (test code = UA Sq Occasional /LPF Epi) [facility] AND [id number] 02:33:00 Test Item Value Reference Range Interpretation Comments UA WBC (test code = 1 See_Comment [Automa sarah message] The UA WBC) system which ge nerated this result transmit sarah reference range : <=5. The reference range was not used to interpr et this result as felicitas l/abnormal. [facility] [id number] 02:33:00 Test Item Value Reference Range Interpretation Comments UA RBC (test code = 1 See_Comment [Automa sarah message] The UA RBC) system which ge nerated this result transmit sarah reference range : <=2. The reference range was not used to interpr et this result as felicitas l/abnormal. [facility] [id number] 02:33:00 Test Item Value Reference Range Interpretation Comments UA Mucus (test code = UA Mucus) Few /LPF [facility] AND [id number] 02:33:00 Test Item Value Reference Range Interpretation Comments UA Color (test code = Yellow *NA*(02/09/21 UA Color) 9:33 PM) [facility] AND [id number] 02:33:00 Test Item Value Reference Range Interpretation Comments UA Turbidity (test code = Clear (02/09/21 9:33 UA Turbidity) PM) [facility] AND [id number] 02:33:00 Test Item Value Reference Range Interpretation Comments UA Spec Grav (test code = UA Spec 1.017 1 Grav) [facility] AND [id number] 02:33:00 Test Item Value Reference Range Interpretation Comments UA pH (test code = UA pH) 5.0 1 5.0-8.0 [facility] AND [id number] 02:33:00 Test Item Value Reference Range Interpretation Comments UA Protein (test code = UA Negative mg/dL Protein) [facility] AND [id number] 02:33:00 Test Item Value Reference Range Interpretation Comments UA Glucose (test code = UA Negative mg/dL Glucose) [facility] AND [id number] 02:33:00 Test Item Value Reference Range Interpretation Comments UA Ketones (test code = UA Negative mg/dL Ketones) [facility] [id number] 02:33:00 Test Item Value Reference Range Interpretation Comments UA Bili (test code = Negative *NA*(02/09/21 UA Bili) 9:33 PM) [facility] [id number] 02:33:00 Test Item Value Reference Range Interpretation Comments UA Blood (test code = Negative (02/09/21 9:33 UA Blood) PM) [facility] [id number] 02:33:00 Test Item Value Reference Range Interpretation Comments UA Urobilinogen (test code = UA 2.0 0.1-1.0 Urobilinogen) [facility] [id number] 02:33:00 Test Item Value Reference Range Interpretation Comments UA Nitrite (test code Negative (02/09/21 9:33 = UA Nitrite) PM) [facility] [id number] 02:33:00 Test Item Value Reference Range Interpretation Comments UA Leuk Est (test code Small *ABN*(02/09/21 = UA Leuk Est) 9:33 PM) [facility] [id number] 02:33:00 Test Item Value Reference Range Interpretation Comments UA Sq Epi (test code = UA Sq Occasional /LPF Epi) [facility] [id number] 02:33:00 Test Item Value Reference Range Interpretation Comments UA WBC (test code = 1 See_Comment [Automa sarah message] The UA WBC) system which ge nerated this result transmit sarah reference range : <=5. The reference range was not used to interpr et this result as felicitas l/abnormal. [facility] [id number] 02:33:00 Test Item Value Reference Range Interpretation Comments UA RBC (test code = 1 See_Comment [Automa sarah message] The UA RBC) system which ge nerated this result transmit sarah reference range : <=2. The reference range was not used to interpr et this result as felicitas l/abnormal. [facility] [id number] 02:33:00 Test Item Value Reference Range Interpretation Comments UA Mucus (test code = UA Mucus) Few /LPF [facility] [id number] 02:33:00 Test Item Value Reference Range Interpretation Comments UA Color (test code = Yellow *NA*(02/09/21 UA Color) 9:33 PM) [facility] AND [id number] 02:33:00 Test Item Value Reference Range Interpretation Comments UA Turbidity (test code = Clear (02/09/21 9:33 UA Turbidity) PM) [facility] AND [id number] 02:33:00 Test Item Value Reference Range Interpretation Comments UA Spec Grav (test code = UA Spec 1.017 1 Grav) [facility] AND [id number] 02:33:00 Test Item Value Reference Range Interpretation Comments UA pH (test code = UA pH) 5.0 1 5.0-8.0 [facility] AND [id number] 02:33:00 Test Item Value Reference Range Interpretation Comments UA Protein (test code = UA Negative mg/dL Protein) [facility] AND [id number] 02:33:00 Test Item Value Reference Range Interpretation Comments UA Glucose (test code = UA Negative mg/dL Glucose) [facility] AND [id number] 02:33:00 Test Item Value Reference Range Interpretation Comments UA Ketones (test code = UA Negative mg/dL Ketones) [facility] AND [id number] 02:33:00 Test Item Value Reference Range Interpretation Comments UA Bili (test code = Negative *NA*(02/09/21 UA Bili) 9:33 PM) [facility] AND [id number] 02:33:00 Test Item Value Reference Range Interpretation Comments UA Blood (test code = Negative (02/09/21 9:33 UA Blood) PM) [facility] AND [id number] 02:33:00 Test Item Value Reference Range Interpretation Comments UA Urobilinogen (test code = UA 2.0 0.1-1.0 Urobilinogen) [facility] AND [id number] 02:33:00 Test Item Value Reference Range Interpretation Comments UA Nitrite (test code Negative (02/09/21 9:33 = UA Nitrite) PM) [facility] AND [id number] 02:33:00 Test Item Value Reference Range Interpretation Comments UA Leuk Est (test code Small *ABN*(02/09/21 = UA Leuk Est) 9:33 PM) [facility] [id number] 02:33:00 Test Item Value Reference Range Interpretation Comments UA Sq Epi (test code = UA Sq Occasional /LPF Epi) [facility] [id number] 02:33:00 Test Item Value Reference Range Interpretation Comments UA WBC (test code = 1 See_Comment [Automa sarah message] The UA WBC) system which ge nerated this result transmit sarah reference range : <=5. The reference range was not used to interpr et this result as felicitas l/abnormal. [facility] [id number] 02:33:00 Test Item Value Reference Range Interpretation Comments UA RBC (test code = 1 See_Comment [Automa sarah message] The UA RBC) system which ge nerated this result transmit sarah reference range : <=2. The reference range was not used to interpr et this result as felicitas l/abnormal. [facility] [id number] 02:33:00 Test Item Value Reference Range Interpretation Comments UA Mucus (test code = UA Mucus) Few /LPF [facility] [id number] 02:33:00 Test Item Value Reference Range Interpretation Comments UA Color (test code = Yellow *NA*(02/09/21 UA Color) 9:33 PM) [facility] [id number] 02:33:00 Test Item Value Reference Range Interpretation Comments UA Turbidity (test code = Clear (02/09/21 9:33 UA Turbidity) PM) [facility] [id number] 02:33:00 Test Item Value Reference Range Interpretation Comments UA Spec Grav (test code = UA Spec 1.017 1 Grav) [facility] [id number] 02:33:00 Test Item Value Reference Range Interpretation Comments UA pH (test code = UA pH) 5.0 1 5.0-8.0 [facility] [id number] 02:33:00 Test Item Value Reference Range Interpretation Comments UA Protein (test code = UA Negative mg/dL Protein) [facility] [id number] 02:33:00 Test Item Value Reference Range Interpretation Comments UA Glucose (test code = UA Negative mg/dL Glucose) [facility] [id number] 02:33:00 Test Item Value Reference Range Interpretation Comments UA Ketones (test code = UA Negative mg/dL Ketones) [facility] [id number] 02:33:00 Test Item Value Reference Range Interpretation Comments UA Bili (test code = Negative *NA*(02/09/21 UA Bili) 9:33 PM) [facility] [id number] 02:33:00 Test Item Value Reference Range Interpretation Comments UA Blood (test code = Negative (02/09/21 9:33 UA Blood) PM) [facility] [id number] 02:33:00 Test Item Value Reference Range Interpretation Comments UA Urobilinogen (test code = UA 2.0 0.1-1.0 Urobilinogen) [facility] [id number] 02:33:00 Test Item Value Reference Range Interpretation Comments UA Nitrite (test code Negative (02/09/21 9:33 = UA Nitrite) PM) [facility] [id number] 02:33:00 Test Item Value Reference Range Interpretation Comments UA Leuk Est (test code Small *ABN*(02/09/21 = UA Leuk Est) 9:33 PM) [facility] [id number] 02:33:00 Test Item Value Reference Range Interpretation Comments UA Sq Epi (test code = UA Sq Occasional /LPF Epi) [facility] [id number] 02:33:00 Test Item Value Reference Range Interpretation Comments UA WBC (test code = 1 See_Comment [Automa sarah message] The UA WBC) system which ge nerated this result transmit sarah reference range : <=5. The reference range was not used to interpr et this result as felicitas l/abnormal. [facility] [id number] 02:33:00 Test Item Value Reference Range Interpretation Comments UA RBC (test code = 1 See_Comment [Automa sarah message] The UA RBC) system which ge nerated this result transmit sarah reference range : <=2. The reference range was not used to interpr et this result as felicitas l/abnormal. [facility] [id number] 02:33:00 Test Item Value Reference Range Interpretation Comments UA Mucus (test code = UA Mucus) Few /LPF [facility] AND [id number] 02:33:00 Test Item Value Reference Range Interpretation Comments UA Color (test code = Yellow *NA*(02/09/21 UA Color) 9:33 PM) [facility] AND [id number] 02:33:00 Test Item Value Reference Range Interpretation Comments UA Turbidity (test code = Clear (02/09/21 9:33 UA Turbidity) PM) [facility] AND [id number] 02:33:00 Test Item Value Reference Range Interpretation Comments UA Spec Grav (test code = UA Spec 1.017 1 Grav) [facility] AND [id number] 02:33:00 Test Item Value Reference Range Interpretation Comments UA pH (test code = UA pH) 5.0 1 5.0-8.0 [facility] AND [id number] 02:33:00 Test Item Value Reference Range Interpretation Comments UA Protein (test code = UA Negative mg/dL Protein) [facility] AND [id number] 02:33:00 Test Item Value Reference Range Interpretation Comments UA Glucose (test code = UA Negative mg/dL Glucose) [facility] AND [id number] 02:33:00 Test Item Value Reference Range Interpretation Comments UA Ketones (test code = UA Negative mg/dL Ketones) [facility] AND [id number] 02:33:00 Test Item Value Reference Range Interpretation Comments UA Bili (test code = Negative *NA*(02/09/21 UA Bili) 9:33 PM) [facility] AND [id number] 02:33:00 Test Item Value Reference Range Interpretation Comments UA Blood (test code = Negative (02/09/21 9:33 UA Blood) PM) [facility] AND [id number] 02:33:00 Test Item Value Reference Range Interpretation Comments UA Urobilinogen (test code = UA 2.0 0.1-1.0 Urobilinogen) [facility] AND [id number] 02:33:00 Test Item Value Reference Range Interpretation Comments UA Nitrite (test code Negative (02/09/21 9:33 = UA Nitrite) PM) [facility] AND [id number] 02:33:00 Test Item Value Reference Range Interpretation Comments UA Leuk Est (test code Small *ABN*(02/09/21 = UA Leuk Est) 9:33 PM) [facility] [id number] 02:33:00 Test Item Value Reference Range Interpretation Comments UA Sq Epi (test code = UA Sq Occasional /LPF Epi) [facility] [id number] 02:33:00 Test Item Value Reference Range Interpretation Comments UA WBC (test code = 1 See_Comment [Automa sarah message] The UA WBC) system which ge nerated this result transmit sarah reference range : <=5. The reference range was not used to interpr et this result as felicitas l/abnormal. [facility] [id number] 02:33:00 Test Item Value Reference Range Interpretation Comments UA RBC (test code = 1 See_Comment [Automa sarah message] The UA RBC) system which ge nerated this result transmit sarah reference range : <=2. The reference range was not used to interpr et this result as felicitas l/abnormal. [facility] [id number] 02:33:00 Test Item Value Reference Range Interpretation Comments UA Mucus (test code = UA Mucus) Few /LPF [facility] [id number] 02:33:00 Test Item Value Reference Range Interpretation Comments UA Color (test code = Yellow *NA*(02/09/21 UA Color) 9:33 PM) [facility] [id number] 02:33:00 Test Item Value Reference Range Interpretation Comments UA Turbidity (test code = Clear (02/09/21 9:33 UA Turbidity) PM) [facility] [id number] 02:33:00 Test Item Value Reference Range Interpretation Comments UA Spec Grav (test code = UA Spec 1.017 1 Grav) [facility] [id number] 02:33:00 Test Item Value Reference Range Interpretation Comments UA pH (test code = UA pH) 5.0 1 5.0-8.0 [facility] [id number] 02:33:00 Test Item Value Reference Range Interpretation Comments UA Protein (test code = UA Negative mg/dL Protein) [facility] [id number] 02:33:00 Test Item Value Reference Range Interpretation Comments UA Glucose (test code = UA Negative mg/dL Glucose) [facility] [id number] 02:33:00 Test Item Value Reference Range Interpretation Comments UA Ketones (test code = UA Negative mg/dL Ketones) [facility] AND [id number] 02:33:00 Test Item Value Reference Range Interpretation Comments UA Bili (test code = Negative *NA*(02/09/21 UA Bili) 9:33 PM) [facility] AND [id number] 02:33:00 Test Item Value Reference Range Interpretation Comments UA Blood (test code = Negative (02/09/21 9:33 UA Blood) PM) [facility] AND [id number] 02:33:00 Test Item Value Reference Range Interpretation Comments UA Urobilinogen (test code = UA 2.0 0.1-1.0 Urobilinogen) [facility] AND [id number] 02:33:00 Test Item Value Reference Range Interpretation Comments UA Nitrite (test code Negative (02/09/21 9:33 = UA Nitrite) PM) [facility] AND [id number] 02:33:00 Test Item Value Reference Range Interpretation Comments UA Leuk Est (test code Small *ABN*(02/09/21 = UA Leuk Est) 9:33 PM) [facility] AND [id number] 02:33:00 Test Item Value Reference Range Interpretation Comments UA Sq Epi (test code = UA Sq Occasional /LPF Epi) [facility] AND [id number] 02:33:00 Test Item Value Reference Range Interpretation Comments UA WBC (test code = 1 See_Comment [Automa sarah message] The UA WBC) system which ge nerated this result transmit sarah reference range : <=5. The reference range was not used to interpr et this result as felicitas l/abnormal. [facility] AND [id number] 02:33:00 Test Item Value Reference Range Interpretation Comments UA RBC (test code = 1 See_Comment [Automa sarah message] The UA RBC) system which ge nerated this result transmit sarah reference range : <=2. The reference range was not used to interpr et this result as felicitas l/abnormal. [facility] AND [id number] 02:33:00 Test Item Value Reference Range Interpretation Comments UA Mucus (test code = UA Mucus) Few /LPF [facility] AND [id number] 02:33:00 Test Item Value Reference Range Interpretation Comments UA Color (test code = Yellow *NA*(02/09/21 UA Color) 9:33 PM) [facility] AND [id number] 02:33:00 Test Item Value Reference Range Interpretation Comments UA Turbidity (test code = Clear (02/09/21 9:33 UA Turbidity) PM) [facility] AND [id number] 02:33:00 Test Item Value Reference Range Interpretation Comments UA Spec Grav (test code = UA Spec 1.017 1 Grav) [facility] AND [id number] 02:33:00 Test Item Value Reference Range Interpretation Comments UA pH (test code = UA pH) 5.0 1 5.0-8.0 [facility] AND [id number] 02:33:00 Test Item Value Reference Range Interpretation Comments UA Protein (test code = UA Negative mg/dL Protein) [facility] AND [id number] 02:33:00 Test Item Value Reference Range Interpretation Comments UA Glucose (test code = UA Negative mg/dL Glucose) [facility] AND [id number] 02:33:00 Test Item Value Reference Range Interpretation Comments UA Ketones (test code = UA Negative mg/dL Ketones) [facility] AND [id number] 02:33:00 Test Item Value Reference Range Interpretation Comments UA Bili (test code = Negative *NA*(02/09/21 UA Bili) 9:33 PM) [facility] AND [id number] 02:33:00 Test Item Value Reference Range Interpretation Comments UA Blood (test code = Negative (02/09/21 9:33 UA Blood) PM) [facility] AND [id number] 02:33:00 Test Item Value Reference Range Interpretation Comments UA Urobilinogen (test code = UA 2.0 0.1-1.0 Urobilinogen) [facility] AND [id number] 02:33:00 Test Item Value Reference Range Interpretation Comments UA Nitrite (test code Negative (02/09/21 9:33 = UA Nitrite) PM) [facility] [id number] 02:33:00 Test Item Value Reference Range Interpretation Comments UA Leuk Est (test code Small *ABN*(02/09/21 = UA Leuk Est) 9:33 PM) [facility] [id number] 02:33:00 Test Item Value Reference Range Interpretation Comments UA Sq Epi (test code = UA Sq Occasional /LPF Epi) [facility] [id number] 02:33:00 Test Item Value Reference Range Interpretation Comments UA WBC (test code = 1 See_Comment [Automa sarah message] The UA WBC) system which ge nerated this result transmit sarah reference range : <=5. The reference range was not used to interpr et this result as felicitas l/abnormal. [facility] [id number] 02:33:00 Test Item Value Reference Range Interpretation Comments UA RBC (test code = 1 See_Comment [Automa sarah message] The UA RBC) system which ge nerated this result transmit sarah reference range : <=2. The reference range was not used to interpr et this result as felicitas l/abnormal. [facility] [id number] 02:33:00 Test Item Value Reference Range Interpretation Comments UA Mucus (test code = UA Mucus) Few /LPF [facility] [id number] 02:33:00 Test Item Value Reference Range Interpretation Comments UA Color (test code = Yellow *NA*(02/09/21 UA Color) 9:33 PM) [facility] [id number] 02:33:00 Test Item Value Reference Range Interpretation Comments UA Turbidity (test code = Clear (02/09/21 9:33 UA Turbidity) PM) [facility] [id number] 02:33:00 Test Item Value Reference Range Interpretation Comments UA Spec Grav (test code = UA Spec 1.017 1 Grav) [facility] [id number] 02:33:00 Test Item Value Reference Range Interpretation Comments UA pH (test code = UA pH) 5.0 1 5.0-8.0 [facility] [id number] 02:33:00 Test Item Value Reference Range Interpretation Comments UA Protein (test code = UA Negative mg/dL Protein) [facility] [place] [facility] [id number] 02:33:00 Test Item Value Reference Range Interpretation Comments UA Glucose (test code = UA Negative mg/dL Glucose) [facility] [id number] 02:33:00 Test Item Value Reference Range Interpretation Comments UA Ketones (test code = UA Negative mg/dL Ketones) [facility] [place] [facility] [id number] 02:33:00 Test Item Value Reference Range Interpretation Comments UA Bili (test code = Negative *NA*(02/09/21 UA Bili) 9:33 PM) [facility] AND [id number] 02:33:00 Test Item Value Reference Range Interpretation Comments UA Blood (test code = Negative (02/09/21 9:33 UA Blood) PM) [facility] AND [id number] 02:33:00 Test Item Value Reference Range Interpretation Comments UA Urobilinogen (test code = UA 2.0 0.1-1.0 Urobilinogen) [facility] AND [id number] 02:33:00 Test Item Value Reference Range Interpretation Comments UA Nitrite (test code Negative (02/09/21 9:33 = UA Nitrite) PM) [facility] AND [id number] 02:33:00 Test Item Value Reference Range Interpretation Comments UA Leuk Est (test code Small *ABN*(02/09/21 = UA Leuk Est) 9:33 PM) [facility] AND [id number] 02:33:00 Test Item Value Reference Range Interpretation Comments UA Sq Epi (test code = UA Sq Occasional /LPF Epi) [facility] AND [id number] 02:33:00 Test Item Value Reference Range Interpretation Comments UA WBC (test code = 1 See_Comment [Automa sarah message] The UA WBC) system which ge nerated this result transmit sarah reference range : <=5. The reference range was not used to interpr et this result as felicitas l/abnormal. [facility] [place] [facility] [id number] 02:33:00 Test Item Value Reference Range Interpretation Comments UA RBC (test code = 1 See_Comment [Automa sarah message] The UA RBC) system which ge nerated this result transmit sarah reference range : <=2. The reference range was not used to interpr et this result as felicitas l/abnormal. [facility] [id number] 02:33:00 Test Item Value Reference Range Interpretation Comments UA Mucus (test code = UA Mucus) Few /LPF [facility] [id number] 01:27:00 Test Item Value Reference Range Interpretation Comments Total Protein (test code = Total 6.3 6.4-8.4 Protein) [facility] [id number] 01:27:00 Test Item Value Reference Range Interpretation Comments Albumin Lvl (test code = Albumin Lvl) 2.9 3.5-5.0 [facility] [id number] 01:27:00 Test Item Value Reference Range Interpretation Comments ALT (test code = ALT) 12 See_Comment [Auto mated message] The system which ge nerated this result transmit sarah reference range : <=65. The reference range was not used to interpr et this result as felicitas l/abnormal. [facility] [id number] 01:27:00 Test Item Value Reference Range Interpretation Comments AST (test code = AST) 8 See_Comment [Auto mated message] The system which ge nerated this result transmit sarah reference range : <=37. The reference range was not used to interpr et this result as felicitas l/abnormal. [facility] [id number] 01:27:00 Test Item Value Reference Range Interpretation Comments Alk Phos (test code = Alk Phos) 73 39-136 [facility] [id number] 01:27:00 Test Item Value Reference Range Interpretation Comments Bili Total (test code = Bili Total) 0.2 0.2-1.3 [facility] [id number] 01:27:00 Test Item Value Reference Range Interpretation Comments AGAP (test code = AGAP) 4.5 10.0-20.0 [facility] [id number] 01:27:00 Test Item Value Reference Range Interpretation Comments B/C Ratio (test code = B/C Ratio) 18 1 6-25 [facility] [id number] 01:27:00 Test Item Value Reference Range Interpretation Comments Globulin (test code = Globulin) 3.4 2.7-4.2 [facility] [id number] 01:27:00 Test Item Value Reference Range Interpretation Comments Troponin-I (test code no gt See_Comment [Auto mated message] The = Troponin-I) system which g enerated this result transmit sarah reference range : <=0.40. The reference r arelis was not used to interpr et this result as felicitas l/abnormal. [facility] [id number] 01:27:00 Test Item Value Reference Range Interpretation Comments Glucose Lvl (test code = Glucose Lvl) 102 70-99 [facility] [id number] 01:27:00 Test Item Value Reference Range Interpretation Comments BUN (test code = BUN) 12 7-22 [facility] [id number] 01:27:00 Test Item Value Reference Range Interpretation Comments Creatinine Lvl (test code = Creatinine 0.66 0.50-1.40 Lvl) [facility] [id number] 01:27:00 Test Item Value Reference Range Interpretation Comments Sodium Lvl (test code = Sodium Lvl) 142 135-145 [facility] [id number] 01:27:00 Test Item Value Reference Range Interpretation Comments Potassium Lvl (test code = Potassium 3.5 3.5-5.1 Lvl) [facility] [id number] 01:27:00 Test Item Value Reference Range Interpretation Comments Chloride Lvl (test code = Chloride Lvl) 116 95-109 [facility] [id number] 01:27:00 Test Item Value Reference Range Interpretation Comments CO2 (test code = CO2) 25 24-32 [facility] [id number] 01:27:00 Test Item Value Reference Range Interpretation Comments Calcium Lvl (test code = Calcium Lvl) 8.6 8.5-10.5 [facility] [id number] 01:27:00 Test Item Value Reference Range Interpretation Comments Total Protein (test code = Total 6.3 6.4-8.4 Protein) [facility] [id number] 01:27:00 Test Item Value Reference Range Interpretation Comments A/G Ratio (test code = A/G Ratio) 0.9 1 0.7-1.6 [facility] [id number] 01:27:00 Test Item Value Reference Range Interpretation Comments Albumin Lvl (test code = Albumin Lvl) 2.9 3.5-5.0 [facility] [employer] [id number] 01:27:00 Test Item Value Reference Range Interpretation Comments ALT (test code = ALT) 12 See_Comment [Auto mated message] The system which ge nerated this result transmit sarah reference range : <=65. The reference range was not used to interpr et this result as felicitas l/abnormal. [facility] [employer] [id number] 01:27:00 Test Item Value Reference Range Interpretation Comments AST (test code = AST) 8 See_Comment [Auto mated message] The system which ge nerated this result transmit sarah reference range : <=37. The reference range was not used to interpr et this result as felicitas l/abnormal. [facility] [id number] 01:27:00 Test Item Value Reference Range Interpretation Comments Alk Phos (test code = Alk Phos) 73 39-136 [facility] [id number] 01:27:00 Test Item Value Reference Range Interpretation Comments Bili Total (test code = Bili Total) 0.2 0.2-1.3 [facility] [id number] 01:27:00 Test Item Value Reference Range Interpretation Comments AGAP (test code = AGAP) 4.5 10.0-20.0 [facility] [id number] 01:27:00 Test Item Value Reference Range Interpretation Comments B/C Ratio (test code = B/C Ratio) 18 1 6-25 [facility] [id number] 01:27:00 Test Item Value Reference Range Interpretation Comments Globulin (test code = Globulin) 3.4 2.7-4.2 [facility] [employer] [id number] 01:27:00 Test Item Value Reference Range Interpretation Comments A/G Ratio (test code = A/G Ratio) 0.9 1 0.7-1.6 [facility] [employer] [id number] 01:27:00 Test Item Value Reference Range Interpretation Comments eGFR (test code = eGFR) 91 [facility] [employer] [id number] 01:27:00 Test Item Value Reference Range Interpretation Comments eGFR (test code = eGFR) 91 [id number] 01:27:00 Test Item Value Reference Range Interpretation Comments Lipase Lvl (test code = Lipase Lvl) 137 73-393 [id number] 01:27:00 Test Item Value Reference Range Interpretation Comments PT (test code = PT) 16.0 s 12.0-14.7 [facility] [id number] 01:27:00 Test Item Value Reference Range Interpretation Comments INR (test code = INR) 1.30 1 0.85-1.17 [facility] [id number] 01:27:00 Test Item Value Reference Range Interpretation Comments PTT (test code = PTT) 22.1 s 22.9-35.8 [facility]YrqklphEJXMVQEXTZ9403-30-02 01:27:00 Test Item Value Reference Range Interpretation Comments Coronavirus (COVID-19) Not Detected (02/09/21 JAVED (test code = 8:27 PM) Coronavirus (COVID-19) JAVED) [facility]2021-08-20 01:27:00 Test Item Value Reference Range Interpretation Comments Lipase Lvl (test code = Lipase Lvl) 137 73-393 [facility] CentralHoagbpiRTYGDLVYFJ6902-31-04 01:27:00 Test Item Value Reference Range Interpretation Comments PT (test code = PT) 16.0 s 12.0-14.7 [facility] [id number] 01:27:00 Test Item Value Reference Range Interpretation Comments INR (test code = INR) 1.30 1 0.85-1.17 [facility] [id number] 01:27:00 Test Item Value Reference Range Interpretation Comments PTT (test code = PTT) 22.1 s 22.9-35.8 [id number] 01:27:00 Test Item Value Reference Range Interpretation Comments Coronavirus (COVID-19) Not Detected (02/09/21 JAVED (test code = 8:27 PM) Coronavirus (COVID-19) JAVED) [id number] 01:27:00 Test Item Value Reference Range Interpretation Comments Troponin-I (test code no gt See_Comment [Auto mated message] The = Troponin-I) system which g enerated this result transmit sarah reference range : <=0.40. The reference r arelis was not used to interpr et this result as felicitas l/abnormal. [place] [id number] 01:27:00 Test Item Value Reference Range Interpretation Comments Glucose Lvl (test code = Glucose Lvl) 102 70-99 [place] 853501-08-20 01:27:00 Test Item Value Reference Range Interpretation Comments BUN (test code = BUN) 12 7-22 [place] 853501-08-20 01:27:00 Test Item Value Reference Range Interpretation Comments Creatinine Lvl (test code = Creatinine 0.66 0.50-1.40 Lvl) [place] 853501-08-20 01:27:00 Test Item Value Reference Range Interpretation Comments Sodium Lvl (test code = Sodium Lvl) 142 135-145 [place] 853501-08-20 01:27:00 Test Item Value Reference Range Interpretation Comments Potassium Lvl (test code = Potassium 3.5 3.5-5.1 Lvl) [place] 853501-08-20 01:27:00 Test Item Value Reference Range Interpretation Comments Chloride Lvl (test code = Chloride Lvl) 116 95-109 [place] 853501-08-20 01:27:00 Test Item Value Reference Range Interpretation Comments CO2 (test code = CO2) 25 24-32 [place] 853501-08-20 01:27:00 Test Item Value Reference Range Interpretation Comments Calcium Lvl (test code = Calcium Lvl) 8.6 8.5-10.5 [place] 853501-08-20 01:27:00 Test Item Value Reference Range Interpretation Comments Total Protein (test code = Total 6.3 6.4-8.4 Protein) [place] 853501-08-20 01:27:00 Test Item Value Reference Range Interpretation Comments Albumin Lvl (test code = Albumin Lvl) 2.9 3.5-5.0 [place] 853501-08-20 01:27:00 Test Item Value Reference Range Interpretation Comments ALT (test code = ALT) 12 See_Comment [Auto mated message] The system which ge nerated this result transmit sarah reference range : <=65. The reference range was not used to interpr et this result as felicitas l/abnormal. [place] 853501-08-20 01:27:00 Test Item Value Reference Range Interpretation Comments AST (test code = AST) 8 See_Comment [Auto mated message] The system which ge nerated this result transmit sarah reference range : <=37. The reference range was not used to interpr et this result as felicitas l/abnormal. [place] 853501-08-20 01:27:00 Test Item Value Reference Range Interpretation Comments Alk Phos (test code = Alk Phos) 73 39-136 [place] 853501-08-20 01:27:00 Test Item Value Reference Range Interpretation Comments Bili Total (test code = Bili Total) 0.2 0.2-1.3 [place] 853501-08-20 01:27:00 Test Item Value Reference Range Interpretation Comments AGAP (test code = AGAP) 4.5 10.0-20.0 [place] 853501-08-20 01:27:00 Test Item Value Reference Range Interpretation Comments B/C Ratio (test code = B/C Ratio) 18 1 6-25 [place] 853501-08-20 01:27:00 Test Item Value Reference Range Interpretation Comments Globulin (test code = Globulin) 3.4 2.7-4.2 [place] 853501-08-20 01:27:00 Test Item Value Reference Range Interpretation Comments A/G Ratio (test code = A/G Ratio) 0.9 1 0.7-1.6 [place] 853501-08-20 01:27:00 Test Item Value Reference Range Interpretation Comments eGFR (test code = eGFR) 91 [place] 853501-08-20 01:27:00 Test Item Value Reference Range Interpretation Comments Lipase Lvl (test code = Lipase Lvl) 137 73-393 [place] 139731-08-20 01:27:00 Test Item Value Reference Range Interpretation Comments PT (test code = PT) 16.0 s 12.0-14.7 [facility] CentralXtaquabHIRNJGHBKE5525-26-40 01:27:00 Test Item Value Reference Range Interpretation Comments INR (test code = INR) 1.30 1 0.85-1.17 [place] 139731-08-20 01:27:00 Test Item Value Reference Range Interpretation Comments PTT (test code = PTT) 22.1 s 22.9-35.8 [facility]PjgejgtRFTFFYEAOM8249-31-86 01:27:00 Test Item Value Reference Range Interpretation Comments Coronavirus (COVID-19) Not Detected (02/09/21 JAVED (test code = 8:27 PM) Coronavirus (COVID-19) JAVED) [facility] [id number] 01:27:00<0.02MeB[facility] CentennialStyleFeeder [id number] 01:27:75027PjjjialvThe Hospitals [facility] CampusStyleFeeder [id number] 01:27:0012 [facility] CampusCARDI [id number] 01:27:00 Test Item Value Reference Range Interpretation Comments Troponin-I (test code no gt See_Comment [Auto mated message] The = Troponin-I) system which g enerated this result transmit sarah reference range : <=0.40. The reference r arelis was not used to interpr et this result as felicitas l/abnormal. [facility] [id number] 01:27:00 Test Item Value Reference Range Interpretation Comments Glucose Lvl (test code = Glucose Lvl) 102 70-99 [facility] CampusStyle[facility] [id number] 01:27:000.66MeohriHCA [facility] Healthcare NorthwestStyleFeeder [facility] 2021-02-10 01:27:00 Test Item Value Reference Range Interpretation Comments BUN (test code = BUN) 12 7-22 [facility]Style[facility] [id number] 01:27:00 Test Item Value Reference Range Interpretation Comments Creatinine Lvl (test code = Creatinine 0.66 0.50-1.40 Lvl) [facility] CampusStyle[facility] [id number] 01:27:00 Test Item Value Reference Range Interpretation Comments Sodium Lvl (test code = Sodium Lvl) 142 135-145 [facility] CampusStyle[facility] [id number] 01:27:00 Test Item Value Reference Range Interpretation Comments Potassium Lvl (test code = Potassium 3.5 3.5-5.1 Lvl) [facility]2021-08-20 01:27:00 Test Item Value Reference Range Interpretation Comments Chloride Lvl (test code = Chloride Lvl) 116 95-109 [facility] CampusStyle[facility] [id number] 01:27:00 Test Item Value Reference Range Interpretation Comments CO2 (test code = CO2) 25 24-32 [place] 853501-08-20 01:27:00 Test Item Value Reference Range Interpretation Comments Calcium Lvl (test code = Calcium Lvl) 8.6 8.5-10.5 [place] 853501-08-20 01:27:00 Test Item Value Reference Range Interpretation Comments Total Protein (test code = Total 6.3 6.4-8.4 Protein) [place] 853501-08-20 01:27:00 Test Item Value Reference Range Interpretation Comments Albumin Lvl (test code = Albumin Lvl) 2.9 3.5-5.0 [place] 853501-08-20 01:27:00 Test Item Value Reference Range Interpretation Comments ALT (test code = ALT) 12 See_Comment [Auto mated message] The system which ge nerated this result transmit sarah reference range : <=65. The reference range was not used to interpr et this result as felicitas l/abnormal. [place] 853501-08-20 01:27:31671ZxlbjasxUnited [facility] 2021-02-10 01:27:00 Test Item Value Reference Range Interpretation Comments AST (test code = AST) 8 See_Comment [Auto mated message] The system which ge nerated this result transmit sarah reference range : <=37. The reference range was not used to interpr et this result as felicitas l/abnormal. [place] 853501-08-20 01:27:00 Test Item Value Reference Range Interpretation Comments Alk Phos (test code = Alk Phos) 73 39-136 [place] 853501-08-20 01:27:00 Test Item Value Reference Range Interpretation Comments Bili Total (test code = Bili Total) 0.2 0.2-1.3 [place] [address]3501-08-20 01:27:00 Test Item Value Reference Range Interpretation Comments AGAP (test code = AGAP) 4.5 10.0-20.0 [place] 853501-08-20 01:27:00 Test Item Value Reference Range Interpretation Comments B/C Ratio (test code = B/C Ratio) 18 1 6-25 [place] 853501-08-20 01:27:00 Test Item Value Reference Range Interpretation Comments Globulin (test code = Globulin) 3.4 2.7-4.2 [facility] HermannCHEM [id number] 01:27:00 Test Item Value Reference Range Interpretation Comments A/G Ratio (test code = A/G Ratio) 0.9 1 0.7-1.6 [facility] HermannCHEM [id number] 01:27:00 Test Item Value Reference Range Interpretation Comments eGFR (test code = eGFR) 91 [facility] HermannCHEM [id number] 01:27:00 Test Item Value Reference Range Interpretation Comments Lipase Lvl (test code = Lipase Lvl) 137 73-393 [facility] VrhdpzhWFNQYUEFWO5772-65-58 01:27:00 Test Item Value Reference Range Interpretation Comments PT (test code = PT) 16.0 s 12.0-14.7 [facility] HermannCHEM [id number] 01:[facility]:003[facility] 2021-02-10 01:27:00 Test Item Value Reference Range Interpretation Comments INR (test code = INR) 1.30 1 0.85-1.17 [facility] [id number] 01:27:00 Test Item Value Reference Range Interpretation Comments PTT (test code = PTT) 22.1 s 22.9-35.8 [facility] YrastwsLZURBVNISS7208-37-19 01:27:00 Test Item Value Reference Range Interpretation Comments Coronavirus (COVID-19) Not Detected (02/09/21 JAVED (test code = 8:27 PM) Coronavirus (COVID-19) JAVED) [facility] HermannCHEM [id number] 01:27:95757Ayxgobfx HermannCHEM PANEL 2021-02-10 01:27:0025[facility] HermannCHEM [id number] 01:27:008.6[facility] HermannCHEM [id number] 01:27:006.3[facility] HermannCHEM [id number] 01:27:002.9[facility] HermannCHEM [id number] 01:27:0012[facility] HermannCHEM [id number] 01:27:008[facility] HermannCHEM [id number] 01:27:0073[facility] HermannCHEM [id number] 01:27:000.2[facility] HermannCHEM [id number] 01:27:004.5[facility] HermannCHEM [id number] 01:27:00 Test Item Value Reference Range Interpretation Comments B/C Ratio (test code = B/C Ratio) 18 1 6-25 [facility] [id number] 01:27:003.4[facility] PAN[facility] 2021-02-10 01:27:00 Test Item Value Reference Range Interpretation Comments A/G Ratio (test code = A/G Ratio) 0.9 1 0.7-1.6 [facility]ann[facility] [id number] 01:27:0091[facility] HospitalannCHEM PANEL 2021-02-10 01:27:48034Dfsgtvty DgcgnygCHNGIHIZEO5916-00-60 01:27:00 Test Item Value Reference Range Interpretation Comments PT (test code = PT) 16.0 s 12.0-14.7 [facility] CampusJdnhdmwEADGUJHNLW5325-74-73 01:27:00 Test Item Value Reference Range Interpretation Comments INR (test code = INR) 1.30 1 0.85-1.17 [facility] HospitalGqixklpCMFQGNYZLU6528-47-25 01:27:00 Test Item Value Reference Range Interpretation Comments PTT (test code = PTT) 22.1 s 22.9-35.8 [facility] CampusBuviftgVKLGHEIDEJ4712-54-91 01:27:00Not Detected (02/09/21 8:27 PM) [facility] CampusCARDIAC [id number] 01:27:00 Test Item Value Reference Range Interpretation Comments Troponin-I (test code no gt See_Comment [Auto mated message] The = Troponin-I) system which g enerated this result transmit sarah reference range : <=0.40. The reference r arelis was not used to interpr et this result as felicitas l/abnormal. [facility] [id number] 01:27:00 Test Item Value Reference Range Interpretation Comments Glucose Lvl (test code = Glucose Lvl) 102 70-99 [facility] [id number] 01:27:00 Test Item Value Reference Range Interpretation Comments BUN (test code = BUN) 12 7-22 [facility] [place] 815091-08-20 01:27:00 Test Item Value Reference Range Interpretation Comments Creatinine Lvl (test code = Creatinine 0.66 0.50-1.40 Lvl) [place] [address]-08-20 01:27:00 Test Item Value Reference Range Interpretation Comments Sodium Lvl (test code = Sodium Lvl) 142 135-145 [place] 853501-08-20 01:27:00 Test Item Value Reference Range Interpretation Comments Potassium Lvl (test code = Potassium 3.5 3.5-5.1 Lvl) [address]08-20 01:27:00 Test Item Value Reference Range Interpretation Comments Chloride Lvl (test code = Chloride Lvl) 116 95-109 [place] 853501-08-20 01:27:00 Test Item Value Reference Range Interpretation Comments CO2 (test code = CO2) 25 24-32 [place] [address]-08-20 01:27:00 Test Item Value Reference Range Interpretation Comments Calcium Lvl (test code = Calcium Lvl) 8.6 8.5-10.5 [place] 853501-08-20 01:27:00 Test Item Value Reference Range Interpretation Comments Total Protein (test code = Total 6.3 6.4-8.4 Protein) [place] [address]-08-20 01:27:00 Test Item Value Reference Range Interpretation Comments Albumin Lvl (test code = Albumin Lvl) 2.9 3.5-5.0 [place] [address]3501-08-20 01:27:00 Test Item Value Reference Range Interpretation Comments ALT (test code = ALT) 12 See_Comment [Auto mated message] The system which ge nerated this result transmit sarah reference range : <=65. The reference range was not used to interpr et this result as felicitas l/abnormal. [place] [address]-08-20 01:27:00 Test Item Value Reference Range Interpretation Comments AST (test code = AST) 8 See_Comment [Auto mated message] The system which ge nerated this result transmit sarah reference range : <=37. The reference range was not used to interpr et this result as felicitas l/abnormal. [place] [address]-08-20 01:27:00 Test Item Value Reference Range Interpretation Comments Alk Phos (test code = Alk Phos) 73 39-136 [facility]2021-08-20 01:27:00 Test Item Value Reference Range Interpretation Comments Bili Total (test code = Bili Total) 0.2 0.2-1.3 [facility]2021-08-20 01:27:00 Test Item Value Reference Range Interpretation Comments AGAP (test code = AGAP) 4.5 10.0-20.0 [facility]2021-08-20 01:27:00 Test Item Value Reference Range Interpretation Comments B/C Ratio (test code = B/C Ratio) 18 1 6-25 [facility]2021-08-20 01:27:00 Test Item Value Reference Range Interpretation Comments Globulin (test code = Globulin) 3.4 2.7-4.2 [facility]2021-08-20 01:27:00 Test Item Value Reference Range Interpretation Comments A/G Ratio (test code = A/G Ratio) 0.9 1 0.7-1.6 [place] [address]3501-08-20 01:27:00 Test Item Value Reference Range Interpretation Comments eGFR (test code = eGFR) 91 [facility]2021-08-20 01:27:00 Test Item Value Reference Range Interpretation Comments Lipase Lvl (test code = Lipase Lvl) 137 73-393 [facility] CentralAelhedyBUGDZWQRGE3515-19-01 01:27:00 Test Item Value Reference Range Interpretation Comments PT (test code = PT) 16.0 s 12.0-14.7 [facility] CentralWwqzwzhBWRLSUMIET4986-33-87 01:27:00 Test Item Value Reference Range Interpretation Comments INR (test code = INR) 1.30 1 0.85-1.17 [facility] CentralViuebpzDRYXVMTJXL6248-62-49 01:27:00 Test Item Value Reference Range Interpretation Comments PTT (test code = PTT) 22.1 s 22.9-35.8 [facility] CampusKhbwuzzROTEITABWY3412-81-35 01:27:00 Test Item Value Reference Range Interpretation Comments Coronavirus (COVID-19) Not Detected (02/09/21 JAVED (test code = 8:27 PM) Coronavirus (COVID-19) JAVED) [facility] CampusCARDIAC [id number] 01:27:00 Test Item Value Reference Range Interpretation Comments Troponin-I (test code no gt See_Comment [Auto mated message] The = Troponin-I) system which g enerated this result transmit sarah reference range : <=0.40. The reference r arelis was not used to interpr et this result as felicitas l/abnormal. [place] [address]3501-08-20 01:27:00 Test Item Value Reference Range Interpretation Comments Glucose Lvl (test code = Glucose Lvl) 102 70-99 [place] 853501-08-20 01:27:00 Test Item Value Reference Range Interpretation Comments BUN (test code = BUN) 12 7-22 [place] 853501-08-20 01:27:00 Test Item Value Reference Range Interpretation Comments Creatinine Lvl (test code = Creatinine 0.66 0.50-1.40 Lvl) [facility]2021-08-20 01:27:00 Test Item Value Reference Range Interpretation Comments Sodium Lvl (test code = Sodium Lvl) 142 135-145 [place] 853501-08-20 01:27:00 Test Item Value Reference Range Interpretation Comments Potassium Lvl (test code = Potassium 3.5 3.5-5.1 Lvl) [facility] HospitalWhoisBONNIE [facility] [address]CMSYE3472-09-12 01:27:00 Test Item Value Reference Range Interpretation Comments Chloride Lvl (test code = Chloride Lvl) 116 95-109 [facility]2021-08-20 01:27:00 Test Item Value Reference Range Interpretation Comments CO2 (test code = CO2) 25 24-32 [place] 853501-08-20 01:27:00 Test Item Value Reference Range Interpretation Comments Calcium Lvl (test code = Calcium Lvl) 8.6 8.5-10.5 [place] [address]3501-08-20 01:27:00 Test Item Value Reference Range Interpretation Comments Total Protein (test code = Total 6.3 6.4-8.4 Protein) [place] 853501-08-20 01:27:00 Test Item Value Reference Range Interpretation Comments Albumin Lvl (test code = Albumin Lvl) 2.9 3.5-5.0 [facility] [id number] 01:27:00 Test Item Value Reference Range Interpretation Comments ALT (test code = ALT) 12 See_Comment [Auto mated message] The system which ge nerated this result transmit sarah reference range : <=65. The reference range was not used to interpr et this result as felicitas l/abnormal. [facility] [employer] [id number] 01:27:00 Test Item Value Reference Range Interpretation Comments AST (test code = AST) 8 See_Comment [Auto mated message] The system which ge nerated this result transmit sarah reference range : <=37. The reference range was not used to interpr et this result as felicitas l/abnormal. [facility] [employer] [id number] 01:27:00 Test Item Value Reference Range Interpretation Comments Alk Phos (test code = Alk Phos) 73 39-136 [facility] [id number] 01:27:00 Test Item Value Reference Range Interpretation Comments Bili Total (test code = Bili Total) 0.2 0.2-1.3 [facility] [id number] 01:27:00 Test Item Value Reference Range Interpretation Comments AGAP (test code = AGAP) 4.5 10.0-20.0 [facility] [id number] 01:27:00 Test Item Value Reference Range Interpretation Comments B/C Ratio (test code = B/C Ratio) 18 1 6-25 [facility] [id number] 01:27:00 Test Item Value Reference Range Interpretation Comments Globulin (test code = Globulin) 3.4 2.7-4.2 [facility] [id number] 01:27:00 Test Item Value Reference Range Interpretation Comments A/G Ratio (test code = A/G Ratio) 0.9 1 0.7-1.6 [facility] [id number] 01:27:00 Test Item Value Reference Range Interpretation Comments eGFR (test code = eGFR) 91 [facility] [id number] 01:27:00 Test Item Value Reference Range Interpretation Comments Lipase Lvl (test code = Lipase Lvl) 137 73-393 [place] 139731-08-20 01:27:00 Test Item Value Reference Range Interpretation Comments PT (test code = PT) 16.0 s 12.0-14.7 [facility] HospitalDfqrugmMFNEPCPFPH2306-25-84 01:27:00 Test Item Value Reference Range Interpretation Comments INR (test code = INR) 1.30 1 0.85-1.17 [facility] CampusFlwunbtUYVNPSFBQU2972-21-64 01:27:00 Test Item Value Reference Range Interpretation Comments PTT (test code = PTT) 22.1 s 22.9-35.8 [facility] CampusIzrohtnOYVVTQCGRR8607-25-85 01:27:00 Test Item Value Reference Range Interpretation Comments Coronavirus (COVID-19) Not Detected (02/09/21 JAVED (test code = 8:27 PM) Coronavirus (COVID-19) JAVED) [facility] CampusCARD[facility]AC [id number] 01:27:00 Test Item Value Reference Range Interpretation Comments Troponin-I (test code no gt See_Comment [Auto mated message] The = Troponin-I) system which g enerated this result transmit sarah reference range : <=0.40. The reference r arelis was not used to interpr et this result as felicitas l/abnormal. [facility] CampusStyleFeeder [id number] 01:27:00 Test Item Value Reference Range Interpretation Comments Glucose Lvl (test code = Glucose Lvl) 102 70-99 [facility]2021-08-20 01:27:00 Test Item Value Reference Range Interpretation Comments BUN (test code = BUN) 12 7-22 [facility]2021-08-20 01:27:00 Test Item Value Reference Range Interpretation Comments Creatinine Lvl (test code = Creatinine 0.66 0.50-1.40 Lvl) [facility]2021-08-20 01:27:00 Test Item Value Reference Range Interpretation Comments Sodium Lvl (test code = Sodium Lvl) 142 135-145 [facility]2021-08-20 01:27:00 Test Item Value Reference Range Interpretation Comments Potassium Lvl (test code = Potassium 3.5 3.5-5.1 Lvl) [facility]2021-08-20 01:27:00 Test Item Value Reference Range Interpretation Comments Chloride Lvl (test code = Chloride Lvl) 116 95-109 [facility]2021-08-20 01:27:00 Test Item Value Reference Range Interpretation Comments CO2 (test code = CO2) 25 24-32 [facility]2021-08-20 01:27:00 Test Item Value Reference Range Interpretation Comments Calcium Lvl (test code = Calcium Lvl) 8.6 8.5-10.5 [facility] [id number] 01:27:00 Test Item Value Reference Range Interpretation Comments Total Protein (test code = Total 6.3 6.4-8.4 Protein) [facility] [id number] 01:27:00 Test Item Value Reference Range Interpretation Comments Albumin Lvl (test code = Albumin Lvl) 2.9 3.5-5.0 [facility] [id number] 01:27:00 Test Item Value Reference Range Interpretation Comments ALT (test code = ALT) 12 See_Comment [Auto mated message] The system which ge nerated this result transmit sarah reference range : <=65. The reference range was not used to interpr et this result as felicitas l/abnormal. [facility] [employer] [id number] 01:27:00 Test Item Value Reference Range Interpretation Comments AST (test code = AST) 8 See_Comment [Auto mated message] The system which ge nerated this result transmit sarah reference range : <=37. The reference range was not used to interpr et this result as felicitas l/abnormal. [facility] [employer] [id number] 01:27:00 Test Item Value Reference Range Interpretation Comments Alk Phos (test code = Alk Phos) 73 39-136 [facility] [employer] [id number] 01:27:00 Test Item Value Reference Range Interpretation Comments Bili Total (test code = Bili Total) 0.2 0.2-1.3 [facility] [employer] [id number] 01:27:00 Test Item Value Reference Range Interpretation Comments AGAP (test code = AGAP) 4.5 10.0-20.0 [facility] [employer] [id number] 01:27:00 Test Item Value Reference Range Interpretation Comments B/C Ratio (test code = B/C Ratio) 18 1 6-25 [facility] [employer] [id number] 01:27:00 Test Item Value Reference Range Interpretation Comments Globulin (test code = Globulin) 3.4 2.7-4.2 [facility] [employer] [id number] 01:27:00 Test Item Value Reference Range Interpretation Comments A/G Ratio (test code = A/G Ratio) 0.9 1 0.7-1.6 [facility]2021-08-20 01:27:00 Test Item Value Reference Range Interpretation Comments eGFR (test code = eGFR) 91 [facility] [id number] 01:27:00 Test Item Value Reference Range Interpretation Comments Lipase Lvl (test code = Lipase Lvl) 137 73-393 [facility]EwnfbfuZSYJCHIBUH8692-99-60 01:27:00 Test Item Value Reference Range Interpretation Comments PT (test code = PT) 16.0 s 12.0-14.7 [facility] CampusBsrsrgvBZKXRQGCZB6631-27-54 01:27:00 Test Item Value Reference Range Interpretation Comments INR (test code = INR) 1.30 1 0.85-1.17 [facility]borLaebtarVPOXMXDAKS1279-85-18 01:27:00 Test Item Value Reference Range Interpretation Comments PTT (test code = PTT) 22.1 s 22.9-35.8 [facility] CampusVoeplyiGOEVKZEVRQ2081-51-00 01:27:00 Test Item Value Reference Range Interpretation Comments Coronavirus (COVID-19) Not Detected (02/09/21 JAVED (test code = 8:27 PM) Coronavirus (COVID-19) JAVED) [facility] CampusCARDI [id number] 01:27:00 Test Item Value Reference Range Interpretation Comments Troponin-I (test code no gt See_Comment [Auto mated message] The = Troponin-I) system which g enerated this result transmit sarah reference range : <=0.40. The reference r arelis was not used to interpr et this result as felicitas l/abnormal. [facility]2021-08-20 01:27:00 Test Item Value Reference Range Interpretation Comments Glucose Lvl (test code = Glucose Lvl) 102 70-99 [facility]2021-08-20 01:27:00 Test Item Value Reference Range Interpretation Comments BUN (test code = BUN) 12 7-22 [facility]2021-08-20 01:27:00 Test Item Value Reference Range Interpretation Comments Creatinine Lvl (test code = Creatinine 0.66 0.50-1.40 Lvl) [facility]2021-08-20 01:27:00 Test Item Value Reference Range Interpretation Comments Sodium Lvl (test code = Sodium Lvl) 142 135-145 [facility]2021-08-20 01:27:00 Test Item Value Reference Range Interpretation Comments Potassium Lvl (test code = Potassium 3.5 3.5-5.1 Lvl) [place] [address]-08-20 01:27:00 Test Item Value Reference Range Interpretation Comments Chloride Lvl (test code = Chloride Lvl) 116 95-109 [place] 853501-08-20 01:27:00 Test Item Value Reference Range Interpretation Comments CO2 (test code = CO2) 25 24-32 [place] 853501-08-20 01:27:00 Test Item Value Reference Range Interpretation Comments Calcium Lvl (test code = Calcium Lvl) 8.6 8.5-10.5 [place] 853501-08-20 01:27:00 Test Item Value Reference Range Interpretation Comments Total Protein (test code = Total 6.3 6.4-8.4 Protein) [place] 853501-08-20 01:27:00 Test Item Value Reference Range Interpretation Comments Albumin Lvl (test code = Albumin Lvl) 2.9 3.5-5.0 [place] 853501-08-20 01:27:00 Test Item Value Reference Range Interpretation Comments ALT (test code = ALT) 12 See_Comment [Auto mated message] The system which ge nerated this result transmit sarah reference range : <=65. The reference range was not used to interpr et this result as felicitas l/abnormal. [place] [address]-08-20 01:27:00 Test Item Value Reference Range Interpretation Comments AST (test code = AST) 8 See_Comment [Auto mated message] The system which ge nerated this result transmit sarah reference range : <=37. The reference range was not used to interpr et this result as felicitas l/abnormal. [facility] [id number] 01:27:00 Test Item Value Reference Range Interpretation Comments Alk Phos (test code = Alk Phos) 73 39-136 [facility] [id number] 01:27:00 Test Item Value Reference Range Interpretation Comments Bili Total (test code = Bili Total) 0.2 0.2-1.3 [place] [address]-08-20 01:27:00 Test Item Value Reference Range Interpretation Comments AGAP (test code = AGAP) 4.5 10.0-20.0 [facility]2021-08-20 01:27:00 Test Item Value Reference Range Interpretation Comments B/C Ratio (test code = B/C Ratio) 18 1 6-25 [facility] [id number] 01:27:00 Test Item Value Reference Range Interpretation Comments Globulin (test code = Globulin) 3.4 2.7-4.2 [facility]2021-08-20 01:27:00 Test Item Value Reference Range Interpretation Comments A/G Ratio (test code = A/G Ratio) 0.9 1 0.7-1.6 [facility]2021-08-20 01:27:00 Test Item Value Reference Range Interpretation Comments eGFR (test code = eGFR) 91 [facility]2021-08-20 01:27:00 Test Item Value Reference Range Interpretation Comments Lipase Lvl (test code = Lipase Lvl) 137 73-393 [facility]fjvknrSNFFDCWLXG1617-15-52 01:27:00 Test Item Value Reference Range Interpretation Comments PT (test code = PT) 16.0 s 12.0-14.7 [facility] CampusJldhlkjPOJGXVSGUO8785-84-20 01:27:00 Test Item Value Reference Range Interpretation Comments INR (test code = INR) 1.30 1 0.85-1.17 [facility]DHZWJV7556-86-25 01:27:00 Test Item Value Reference Range Interpretation Comments PTT (test code = PTT) 22.1 s 22.9-35.8 [facility] CampusRrlkrxmUTMPICLCFW5727-87-24 01:27:00 Test Item Value Reference Range Interpretation Comments Coronavirus (COVID-19) Not Detected (02/09/21 JAVED (test code = 8:27 PM) Coronavirus (COVID-19) JAVED) [facility] CampusCARDIAC [id number] 01:27:00 Test Item Value Reference Range Interpretation Comments Troponin-I (test code no gt See_Comment [Auto mated message] The = Troponin-I) system which g enerated this result transmit sarah reference range : <=0.40. The reference r arelis was not used to interpr et this result as felicitas l/abnormal. [facility]2021-08-20 01:27:00 Test Item Value Reference Range Interpretation Comments Glucose Lvl (test code = Glucose Lvl) 102 70-99 [place] 853501-08-20 01:27:00 Test Item Value Reference Range Interpretation Comments BUN (test code = BUN) 12 7-22 [place] 853501-08-20 01:27:00 Test Item Value Reference Range Interpretation Comments Creatinine Lvl (test code = Creatinine 0.66 0.50-1.40 Lvl) [place] 853501-08-20 01:27:00 Test Item Value Reference Range Interpretation Comments Sodium Lvl (test code = Sodium Lvl) 142 135-145 [place] 853501-08-20 01:27:00 Test Item Value Reference Range Interpretation Comments Potassium Lvl (test code = Potassium 3.5 3.5-5.1 Lvl) [place] 853501-08-20 01:27:00 Test Item Value Reference Range Interpretation Comments Chloride Lvl (test code = Chloride Lvl) 116 95-109 [place] 853501-08-20 01:27:00 Test Item Value Reference Range Interpretation Comments CO2 (test code = CO2) 25 24-32 [place] 853501-08-20 01:27:00 Test Item Value Reference Range Interpretation Comments Calcium Lvl (test code = Calcium Lvl) 8.6 8.5-10.5 [place] 853501-08-20 01:27:00 Test Item Value Reference Range Interpretation Comments Total Protein (test code = Total 6.3 6.4-8.4 Protein) [place] 853501-08-20 01:27:00 Test Item Value Reference Range Interpretation Comments Albumin Lvl (test code = Albumin Lvl) 2.9 3.5-5.0 [place] 853501-08-20 01:27:00 Test Item Value Reference Range Interpretation Comments ALT (test code = ALT) 12 See_Comment [Auto mated message] The system which ge nerated this result transmit sarah reference range : <=65. The reference range was not used to interpr et this result as felicitas l/abnormal. [place] 853501-08-20 01:27:00 Test Item Value Reference Range Interpretation Comments AST (test code = AST) 8 See_Comment [Auto mated message] The system which ge nerated this result transmit sraah reference range : <=37. The reference range was not used to interpr et this result as felicitas l/abnormal. [facility] [id number] 01:27:00 Test Item Value Reference Range Interpretation Comments Alk Phos (test code = Alk Phos) 73 39-136 [facility] [id number] 01:27:00 Test Item Value Reference Range Interpretation Comments Bili Total (test code = Bili Total) 0.2 0.2-1.3 [place] 853501-08-20 01:27:00 Test Item Value Reference Range Interpretation Comments AGAP (test code = AGAP) 4.5 10.0-20.0 [facility] [id number] 01:27:00 Test Item Value Reference Range Interpretation Comments B/C Ratio (test code = B/C Ratio) 18 1 6-25 [facility] [id number] 01:27:00 Test Item Value Reference Range Interpretation Comments Globulin (test code = Globulin) 3.4 2.7-4.2 [facility] [id number] 01:27:00 Test Item Value Reference Range Interpretation Comments A/G Ratio (test code = A/G Ratio) 0.9 1 0.7-1.6 [facility] [id number] 01:27:00 Test Item Value Reference Range Interpretation Comments eGFR (test code = eGFR) 91 [facility] [id number] 01:27:00 Test Item Value Reference Range Interpretation Comments Lipase Lvl (test code = Lipase Lvl) 137 73-393 [facility] CentralBniwhfjXMAPFRKBWY4351-33-73 01:27:00 Test Item Value Reference Range Interpretation Comments PT (test code = PT) 16.0 s 12.0-14.7 [facility] HospitalCsbriehNLGAPOBZVR8310-21-58 01:27:00 Test Item Value Reference Range Interpretation Comments INR (test code = INR) 1.30 1 0.85-1.17 [facility] HospitalPlchluhDRXYXMILPS4409-23-28 01:27:00 Test Item Value Reference Range Interpretation Comments PTT (test code = PTT) 22.1 s 22.9-35.8 [facility] HospitalTtudoylCHEBZCXYEZ5529-23-38 01:27:00 Test Item Value Reference Range Interpretation Comments Coronavirus (COVID-19) Not Detected (02/09/21 JAVED (test code = 8:27 PM) Coronavirus (COVID-19) JAVED) [facility] [id number] 01:27:00 Test Item Value Reference Range Interpretation Comments Troponin-I (test code no gt See_Comment [Auto mated message] The = Troponin-I) system which g enerated this result transmit sarah reference range : <=0.40. The reference r arelis was not used to interpr et this result as felicitas l/abnormal. [facility] [employer] [id number] 01:27:00 Test Item Value Reference Range Interpretation Comments Glucose Lvl (test code = Glucose Lvl) 102 70-99 [facility] [employer] [id number] 01:27:00 Test Item Value Reference Range Interpretation Comments BUN (test code = BUN) 12 7-22 [facility] [id number] 01:27:00 Test Item Value Reference Range Interpretation Comments Creatinine Lvl (test code = Creatinine 0.66 0.50-1.40 Lvl) [facility] [id number] 01:27:00 Test Item Value Reference Range Interpretation Comments Sodium Lvl (test code = Sodium Lvl) 142 135-145 [facility] [employer] [id number] 01:27:00 Test Item Value Reference Range Interpretation Comments Potassium Lvl (test code = Potassium 3.5 3.5-5.1 Lvl) [facility] [id number] 01:27:00 Test Item Value Reference Range Interpretation Comments Chloride Lvl (test code = Chloride Lvl) 116 95-109 [facility] [employer] [id number] 01:27:00 Test Item Value Reference Range Interpretation Comments CO2 (test code = CO2) 25 24-32 [facility] [id number] 01:27:00 Test Item Value Reference Range Interpretation Comments Calcium Lvl (test code = Calcium Lvl) 8.6 8.5-10.5 [facility] [id number] 01:27:00 Test Item Value Reference Range Interpretation Comments Total Protein (test code = Total 6.3 6.4-8.4 Protein) [facility] [id number] 01:27:00 Test Item Value Reference Range Interpretation Comments Albumin Lvl (test code = Albumin Lvl) 2.9 3.5-5.0 [facility] HospitalWhoisCOMMUNITY [id number] 01:27:00 Test Item Value Reference Range Interpretation Comments ALT (test code = ALT) 12 See_Comment [Auto mated message] The system which ge nerated this result transmit sarah reference range : <=65. The reference range was not used to interpr et this result as felicitas l/abnormal. [facility] [id number] 01:27:00 Test Item Value Reference Range Interpretation Comments AST (test code = AST) 8 See_Comment [Auto mated message] The system which ge nerated this result transmit sarah reference range : <=37. The reference range was not used to interpr et this result as felicitas l/abnormal. [facility] [id number] 01:27:00 Test Item Value Reference Range Interpretation Comments Alk Phos (test code = Alk Phos) 73 39-136 [facility] [id number] 01:27:00 Test Item Value Reference Range Interpretation Comments Bili Total (test code = Bili Total) 0.2 0.2-1.3 [facility] [id number] 01:27:00 Test Item Value Reference Range Interpretation Comments AGAP (test code = AGAP) 4.5 10.0-20.0 [facility] [id number] 01:27:00 Test Item Value Reference Range Interpretation Comments B/C Ratio (test code = B/C Ratio) 18 1 6-25 [facility] [id number] 01:27:00 Test Item Value Reference Range Interpretation Comments Globulin (test code = Globulin) 3.4 2.7-4.2 [facility] [id number] 01:27:00 Test Item Value Reference Range Interpretation Comments A/G Ratio (test code = A/G Ratio) 0.9 1 0.7-1.6 [facility] [id number] 01:27:00 Test Item Value Reference Range Interpretation Comments eGFR (test code = eGFR) 91 [facility] [id number] 01:27:00 Test Item Value Reference Range Interpretation Comments Lipase Lvl (test code = Lipase Lvl) 137 73-393 [facility] CentralJhphhmjIAQBEUXWLY6598-84-08 01:27:00 Test Item Value Reference Range Interpretation Comments PT (test code = PT) 16.0 s 12.0-14.7 [facility] CampusPukodwyPNXJDKZWDF2533-91-09 01:27:00 Test Item Value Reference Range Interpretation Comments INR (test code = INR) 1.30 1 0.85-1.17 [facility] CampusRorahvlYFNKVLTVTB0791-25-36 01:27:00 Test Item Value Reference Range Interpretation Comments PTT (test code = PTT) 22.1 s 22.9-35.8 [facility] CampusInjifprEPTOVJEQFJ6883-74-12 01:27:00 Test Item Value Reference Range Interpretation Comments Coronavirus (COVID-19) Not Detected (02/09/21 JAVED (test code = 8:27 PM) Coronavirus (COVID-19) JAVED) [facility] [id number] 01:27:00 Test Item Value Reference Range Interpretation Comments Troponin-I (test code no gt See_Comment [Auto mated message] The = Troponin-I) system which g enerated this result transmit sarah reference range : <=0.40. The reference r arelis was not used to interpr et this result as felicitas l/abnormal. [facility] [id number] 01:27:00 Test Item Value Reference Range Interpretation Comments Glucose Lvl (test code = Glucose Lvl) 102 70-99 [facility] [id number] 01:27:00 Test Item Value Reference Range Interpretation Comments BUN (test code = BUN) 12 7-22 [facility]2021-08-20 01:27:00 Test Item Value Reference Range Interpretation Comments Creatinine Lvl (test code = Creatinine 0.66 0.50-1.40 Lvl) [facility] [id number] 01:27:00 Test Item Value Reference Range Interpretation Comments Sodium Lvl (test code = Sodium Lvl) 142 135-145 [facility] [id number] 01:27:00 Test Item Value Reference Range Interpretation Comments Potassium Lvl (test code = Potassium 3.5 3.5-5.1 Lvl) [facility]2021-08-20 01:27:00 Test Item Value Reference Range Interpretation Comments Chloride Lvl (test code = Chloride Lvl) 116 95-109 [facility]annB[facility] [id number] 01:27:00 Test Item Value Reference Range Interpretation Comments CO2 (test code = CO2) 25 24-32 [place] 853501-08-20 01:27:00 Test Item Value Reference Range Interpretation Comments Calcium Lvl (test code = Calcium Lvl) 8.6 8.5-10.5 [place] 853501-08-20 01:27:00 Test Item Value Reference Range Interpretation Comments Total Protein (test code = Total 6.3 6.4-8.4 Protein) [place] 853501-08-20 01:27:00 Test Item Value Reference Range Interpretation Comments Albumin Lvl (test code = Albumin Lvl) 2.9 3.5-5.0 [facility] [id number] 01:27:00 Test Item Value Reference Range Interpretation Comments ALT (test code = ALT) 12 See_Comment [Auto mated message] The system which ge nerated this result transmit sarah reference range : <=65. The reference range was not used to interpr et this result as felicitas l/abnormal. [place] 853501-08-20 01:27:00 Test Item Value Reference Range Interpretation Comments AST (test code = AST) 8 See_Comment [Auto mated message] The system which ge nerated this result transmit sarah reference range : <=37. The reference range was not used to interpr et this result as felicitas l/abnormal. [place] 853501-08-20 01:27:00 Test Item Value Reference Range Interpretation Comments Alk Phos (test code = Alk Phos) 73 39-136 [facility] [id number] 01:27:00 Test Item Value Reference Range Interpretation Comments Bili Total (test code = Bili Total) 0.2 0.2-1.3 [facility] [id number] 01:27:00 Test Item Value Reference Range Interpretation Comments AGAP (test code = AGAP) 4.5 10.0-20.0 [facility] [id number] 01:27:00 Test Item Value Reference Range Interpretation Comments B/C Ratio (test code = B/C Ratio) 18 1 6-25 [facility] [id number] 01:27:00 Test Item Value Reference Range Interpretation Comments Globulin (test code = Globulin) 3.4 2.7-4.2 [facility] [id number] 01:27:00 Test Item Value Reference Range Interpretation Comments A/G Ratio (test code = A/G Ratio) 0.9 1 0.7-1.6 [facility] [id number] 01:27:00 Test Item Value Reference Range Interpretation Comments eGFR (test code = eGFR) 91 [facility] [id number] 01:27:00 Test Item Value Reference Range Interpretation Comments Lipase Lvl (test code = Lipase Lvl) 137 73-393 [facility]FxqjdvnNIMWFGOZUL5819-56-11 01:27:00 Test Item Value Reference Range Interpretation Comments PT (test code = PT) 16.0 s 12.0-14.7 [id number] 01:27:00 Test Item Value Reference Range Interpretation Comments INR (test code = INR) 1.30 1 0.85-1.17 [id number] 01:27:00 Test Item Value Reference Range Interpretation Comments PTT (test code = PTT) 22.1 s 22.9-35.8 [facility] CampusXyjvkkiGZOCZFILVI2160-43-33 01:27:00 Test Item Value Reference Range Interpretation Comments Coronavirus (COVID-19) Not Detected (02/09/21 JAVED (test code = 8:27 PM) Coronavirus (COVID-19) JAVED) [facility] CampusCARDI [id number] 01:27:00 Test Item Value Reference Range Interpretation Comments Troponin-I (test code no gt See_Comment [Auto mated message] The = Troponin-I) system which g enerated this result transmit sarah reference range : <=0.40. The reference r arelis was not used to interpr et this result as felicitas l/abnormal. [facility] [id number] 01:27:00 Test Item Value Reference Range Interpretation Comments Glucose Lvl (test code = Glucose Lvl) 102 70-99 [facility]2021-08-20 01:27:00 Test Item Value Reference Range Interpretation Comments BUN (test code = BUN) 12 7-22 [facility] [id number] 01:27:00 Test Item Value Reference Range Interpretation Comments Creatinine Lvl (test code = Creatinine 0.66 0.50-1.40 Lvl) [place] 853501-08-20 01:27:00 Test Item Value Reference Range Interpretation Comments Sodium Lvl (test code = Sodium Lvl) 142 135-145 [place] 853501-08-20 01:27:00 Test Item Value Reference Range Interpretation Comments Potassium Lvl (test code = Potassium 3.5 3.5-5.1 Lvl) [place] 853501-08-20 01:27:00 Test Item Value Reference Range Interpretation Comments Chloride Lvl (test code = Chloride Lvl) 116 95-109 [place] [address]-08-20 01:27:00 Test Item Value Reference Range Interpretation Comments CO2 (test code = CO2) 25 24-32 [place] 853501-08-20 01:27:00 Test Item Value Reference Range Interpretation Comments Calcium Lvl (test code = Calcium Lvl) 8.6 8.5-10.5 [place] 853501-08-20 01:27:00 Test Item Value Reference Range Interpretation Comments Total Protein (test code = Total 6.3 6.4-8.4 Protein) [place] 853501-08-20 01:27:00 Test Item Value Reference Range Interpretation Comments Albumin Lvl (test code = Albumin Lvl) 2.9 3.5-5.0 [place] 853501-08-20 01:27:00 Test Item Value Reference Range Interpretation Comments ALT (test code = ALT) 12 See_Comment [Auto mated message] The system which ge nerated this result transmit sarah reference range : <=65. The reference range was not used to interpr et this result as felicitas l/abnormal. [place] 853501-08-20 01:27:00 Test Item Value Reference Range Interpretation Comments AST (test code = AST) 8 See_Comment [Auto mated message] The system which ge nerated this result transmit sarah reference range : <=37. The reference range was not used to interpr et this result as felicitas l/abnormal. [place] [address]-08-20 01:27:00 Test Item Value Reference Range Interpretation Comments Alk Phos (test code = Alk Phos) 73 39-136 [place] 853501-08-20 01:27:00 Test Item Value Reference Range Interpretation Comments Bili Total (test code = Bili Total) 0.2 0.2-1.3 [facility] [id number] 01:27:00 Test Item Value Reference Range Interpretation Comments AGAP (test code = AGAP) 4.5 10.0-20.0 [facility] [id number] 01:27:00 Test Item Value Reference Range Interpretation Comments B/C Ratio (test code = B/C Ratio) 18 1 6-25 [facility] [id number] 01:27:00 Test Item Value Reference Range Interpretation Comments Globulin (test code = Globulin) 3.4 2.7-4.2 [facility] [id number] 01:27:00 Test Item Value Reference Range Interpretation Comments A/G Ratio (test code = A/G Ratio) 0.9 1 0.7-1.6 [facility] [id number] 01:27:00 Test Item Value Reference Range Interpretation Comments eGFR (test code = eGFR) 91 [facility] [id number] 01:27:00 Test Item Value Reference Range Interpretation Comments Lipase Lvl (test code = Lipase Lvl) 137 73-393 [facility] CampusEijqvmhIASDVYKZBM0643-44-73 01:27:00 Test Item Value Reference Range Interpretation Comments PT (test code = PT) 16.0 s 12.0-14.7 [facility] CampusSjosigjNBGZPGCDLU7263-83-82 01:27:00 Test Item Value Reference Range Interpretation Comments INR (test code = INR) 1.30 1 0.85-1.17 [facility] CampusPuzexbjZKEMQEIRIO7698-28-07 01:27:00 Test Item Value Reference Range Interpretation Comments PTT (test code = PTT) 22.1 s 22.9-35.8 [facility] CampusSxmhxjaDBFPVWOGTG6518-29-16 01:27:00 Test Item Value Reference Range Interpretation Comments Coronavirus (COVID-19) Not Detected (02/09/21 JAVED (test code = 8:27 PM) Coronavirus (COVID-19) JAVED) [facility]CARD[facility]AC [id number] 01:27:00 Test Item Value Reference Range Interpretation Comments Troponin-I (test code no gt See_Comment [Auto mated message] The = Troponin-I) system which g enerated this result transmit sarah reference range : <=0.40. The reference r arelis was not used to interpr et this result as felicitas l/abnormal. [place] [address]-08-20 01:27:00 Test Item Value Reference Range Interpretation Comments Glucose Lvl (test code = Glucose Lvl) 102 70-99 [place] 853501-08-20 01:27:00 Test Item Value Reference Range Interpretation Comments BUN (test code = BUN) 12 7-22 [place] [address]-08-20 01:27:00 Test Item Value Reference Range Interpretation Comments Creatinine Lvl (test code = Creatinine 0.66 0.50-1.40 Lvl) [place] [address]-08-20 01:27:00 Test Item Value Reference Range Interpretation Comments Sodium Lvl (test code = Sodium Lvl) 142 135-145 [place] 853501-08-20 01:27:00 Test Item Value Reference Range Interpretation Comments Potassium Lvl (test code = Potassium 3.5 3.5-5.1 Lvl) [place] 853501-08-20 01:27:00 Test Item Value Reference Range Interpretation Comments Chloride Lvl (test code = Chloride Lvl) 116 95-109 [place] 853501-08-20 01:27:00 Test Item Value Reference Range Interpretation Comments CO2 (test code = CO2) 25 24-32 [place] [address]-08-20 01:27:00 Test Item Value Reference Range Interpretation Comments Calcium Lvl (test code = Calcium Lvl) 8.6 8.5-10.5 [place] 853501-08-20 01:27:00 Test Item Value Reference Range Interpretation Comments Total Protein (test code = Total 6.3 6.4-8.4 Protein) [place] [address]-08-20 01:27:00 Test Item Value Reference Range Interpretation Comments Albumin Lvl (test code = Albumin Lvl) 2.9 3.5-5.0 [place] 853501-08-20 01:27:00 Test Item Value Reference Range Interpretation Comments ALT (test code = ALT) 12 See_Comment [Auto mated message] The system which ge nerated this result transmit sarah reference range : <=65. The reference range was not used to interpr et this result as felicitas l/abnormal. [facility]2021-08-20 01:27:00 Test Item Value Reference Range Interpretation Comments AST (test code = AST) 8 See_Comment [Auto mated message] The system which ge nerated this result transmit sarah reference range : <=37. The reference range was not used to interpr et this result as felicitas l/abnormal. [place] 853501-08-20 01:27:00 Test Item Value Reference Range Interpretation Comments Alk Phos (test code = Alk Phos) 73 39-136 [place] 853501-08-20 01:27:00 Test Item Value Reference Range Interpretation Comments Bili Total (test code = Bili Total) 0.2 0.2-1.3 [place] 853501-08-20 01:27:00 Test Item Value Reference Range Interpretation Comments AGAP (test code = AGAP) 4.5 10.0-20.0 [place] 853501-08-20 01:27:00 Test Item Value Reference Range Interpretation Comments B/C Ratio (test code = B/C Ratio) 18 1 6-25 [place] 853501-08-20 01:27:00 Test Item Value Reference Range Interpretation Comments Globulin (test code = Globulin) 3.4 2.7-4.2 [place] 853501-08-20 01:27:00 Test Item Value Reference Range Interpretation Comments A/G Ratio (test code = A/G Ratio) 0.9 1 0.7-1.6 [place] 853501-08-20 01:27:00 Test Item Value Reference Range Interpretation Comments eGFR (test code = eGFR) 91 [place] 853501-08-20 01:27:00 Test Item Value Reference Range Interpretation Comments Lipase Lvl (test code = Lipase Lvl) 137 73-393 [facility]erwpwbWEAIMOCFUK0636-65-00 01:27:00 Test Item Value Reference Range Interpretation Comments PT (test code = PT) 16.0 s 12.0-14.7 [place] 139731-08-20 01:27:00 Test Item Value Reference Range Interpretation Comments INR (test code = INR) 1.30 1 0.85-1.17 [place] 139731-08-20 01:27:00 Test Item Value Reference Range Interpretation Comments PTT (test code = PTT) 22.1 s 22.9-35.8 [facility]WcsyvucZYGENDMOBG7082-93-05 01:27:00 Test Item Value Reference Range Interpretation Comments Coronavirus (COVID-19) Not Detected (02/09/21 JAVED (test code = 8:27 PM) Coronavirus (COVID-19) JAVED) [facility] [id number] 01:27:00 Test Item Value Reference Range Interpretation Comments Troponin-I (test code no gt See_Comment [Auto mated message] The = Troponin-I) system which g enerated this result transmit sarah reference range : <=0.40. The reference r arelis was not used to interpr et this result as felicitas l/abnormal. [facility]Style[facility] [id number] 01:27:00 Test Item Value Reference Range Interpretation Comments Glucose Lvl (test code = Glucose Lvl) 102 70-99 [facility] [id number] 01:27:00 Test Item Value Reference Range Interpretation Comments BUN (test code = BUN) 12 7-22 [facility]2021-08-20 01:27:00 Test Item Value Reference Range Interpretation Comments Creatinine Lvl (test code = Creatinine 0.66 0.50-1.40 Lvl) [facility] [id number] 01:27:00 Test Item Value Reference Range Interpretation Comments Sodium Lvl (test code = Sodium Lvl) 142 135-145 [facility]2021-08-20 01:27:00 Test Item Value Reference Range Interpretation Comments Potassium Lvl (test code = Potassium 3.5 3.5-5.1 Lvl) [facility] [id number] 01:27:00 Test Item Value Reference Range Interpretation Comments Chloride Lvl (test code = Chloride Lvl) 116 95-109 [facility]2021-08-20 01:27:00 Test Item Value Reference Range Interpretation Comments CO2 (test code = CO2) 25 24-32 [place] 853501-08-20 01:27:00 Test Item Value Reference Range Interpretation Comments Calcium Lvl (test code = Calcium Lvl) 8.6 8.5-10.5 [facility] [id number] 01:27:00 Test Item Value Reference Range Interpretation Comments Total Protein (test code = Total 6.3 6.4-8.4 Protein) [facility] [id number] 01:27:00 Test Item Value Reference Range Interpretation Comments Albumin Lvl (test code = Albumin Lvl) 2.9 3.5-5.0 [facility] [id number] 01:27:00 Test Item Value Reference Range Interpretation Comments ALT (test code = ALT) 12 See_Comment [Auto mated message] The system which ge nerated this result transmit sarah reference range : <=65. The reference range was not used to interpr et this result as felicitas l/abnormal. [facility] [employer] [id number] 01:27:00 Test Item Value Reference Range Interpretation Comments AST (test code = AST) 8 See_Comment [Auto mated message] The system which ge nerated this result transmit sarah reference range : <=37. The reference range was not used to interpr et this result as felicitas l/abnormal. [facility] [employer] [id number] 01:27:00 Test Item Value Reference Range Interpretation Comments Alk Phos (test code = Alk Phos) 73 39-136 [facility] [id number] 01:27:00 Test Item Value Reference Range Interpretation Comments Bili Total (test code = Bili Total) 0.2 0.2-1.3 [facility] [id number] 01:27:00 Test Item Value Reference Range Interpretation Comments AGAP (test code = AGAP) 4.5 10.0-20.0 [facility] [employer] [id number] 01:27:00 Test Item Value Reference Range Interpretation Comments B/C Ratio (test code = B/C Ratio) 18 1 6-25 [facility] [id number] 01:27:00 Test Item Value Reference Range Interpretation Comments Globulin (test code = Globulin) 3.4 2.7-4.2 [facility] [employer] [id number] 01:27:00 Test Item Value Reference Range Interpretation Comments A/G Ratio (test code = A/G Ratio) 0.9 1 0.7-1.6 [facility] [employer] [id number] 01:27:00 Test Item Value Reference Range Interpretation Comments eGFR (test code = eGFR) 91 [facility]2021-08-20 01:27:00 Test Item Value Reference Range Interpretation Comments Lipase Lvl (test code = Lipase Lvl) 137 73-393 [facility] CentralTkwngfdAZJLZMHTUQ8362-45-24 01:27:00 Test Item Value Reference Range Interpretation Comments PT (test code = PT) 16.0 s 12.0-14.7 [facility]nkxiyaDMHYGDAQJE3540-15-41 01:27:00 Test Item Value Reference Range Interpretation Comments INR (test code = INR) 1.30 1 0.85-1.17 [id number] 01:27:00 Test Item Value Reference Range Interpretation Comments PTT (test code = PTT) 22.1 s 22.9-35.8 [facility] CampusHwxvjfbOLIJTRXSHV1909-34-42 01:27:00 Test Item Value Reference Range Interpretation Comments Coronavirus (COVID-19) Not Detected (02/09/21 JAVED (test code = 8:27 PM) Coronavirus (COVID-19) JAVED) [facility] [id number] 01:27:00 Test Item Value Reference Range Interpretation Comments Troponin-I (test code no gt See_Comment [Auto mated message] The = Troponin-I) system which g enerated this result transmit sarah reference range : <=0.40. The reference r arelis was not used to interpr et this result as felicitas l/abnormal. [facility]2021-08-20 01:27:00 Test Item Value Reference Range Interpretation Comments Glucose Lvl (test code = Glucose Lvl) 102 70-99 [facility]2021-08-20 01:27:00 Test Item Value Reference Range Interpretation Comments BUN (test code = BUN) 12 7-22 [facility]2021-08-20 01:27:00 Test Item Value Reference Range Interpretation Comments Creatinine Lvl (test code = Creatinine 0.66 0.50-1.40 Lvl) [facility]2021-08-20 01:27:00 Test Item Value Reference Range Interpretation Comments Sodium Lvl (test code = Sodium Lvl) 142 135-145 [facility]2021-08-20 01:27:00 Test Item Value Reference Range Interpretation Comments Potassium Lvl (test code = Potassium 3.5 3.5-5.1 Lvl) [facility]WhoisB[facility] [id number] 01:27:00 Test Item Value Reference Range Interpretation Comments Chloride Lvl (test code = Chloride Lvl) 116 95-109 [place] 853501-08-20 01:27:00 Test Item Value Reference Range Interpretation Comments CO2 (test code = CO2) 25 24-32 [facility]isB[facility] [id number] 01:27:00 Test Item Value Reference Range Interpretation Comments Calcium Lvl (test code = Calcium Lvl) 8.6 8.5-10.5 [facility]WhoisB[facility] [id number] 01:27:00 Test Item Value Reference Range Interpretation Comments Total Protein (test code = Total 6.3 6.4-8.4 Protein) [place] 853501-08-20 01:27:00 Test Item Value Reference Range Interpretation Comments Albumin Lvl (test code = Albumin Lvl) 2.9 3.5-5.0 [facility] [id number] 01:27:00 Test Item Value Reference Range Interpretation Comments ALT (test code = ALT) 12 See_Comment [Auto mated message] The system which ge nerated this result transmit sarah reference range : <=65. The reference range was not used to interpr et this result as felicitas l/abnormal. [facility] [id number] 01:27:00 Test Item Value Reference Range Interpretation Comments AST (test code = AST) 8 See_Comment [Auto mated message] The system which ge nerated this result transmit sarah reference range : <=37. The reference range was not used to interpr et this result as felicitas l/abnormal. [facility] [id number] 01:27:00 Test Item Value Reference Range Interpretation Comments Alk Phos (test code = Alk Phos) 73 39-136 [facility] [id number] 01:27:00 Test Item Value Reference Range Interpretation Comments Bili Total (test code = Bili Total) 0.2 0.2-1.3 [facility] [id number] 01:27:00 Test Item Value Reference Range Interpretation Comments AGAP (test code = AGAP) 4.5 10.0-20.0 [facility] [id number] 01:27:00 Test Item Value Reference Range Interpretation Comments B/C Ratio (test code = B/C Ratio) 18 1 6-25 [facility] [id number] 01:27:00 Test Item Value Reference Range Interpretation Comments Globulin (test code = Globulin) 3.4 2.7-4.2 [facility]2021-08-20 01:27:00 Test Item Value Reference Range Interpretation Comments A/G Ratio (test code = A/G Ratio) 0.9 1 0.7-1.6 [facility]2021-08-20 01:27:00 Test Item Value Reference Range Interpretation Comments eGFR (test code = eGFR) 91 [facility] [id number] 01:27:00 Test Item Value Reference Range Interpretation Comments Lipase Lvl (test code = Lipase Lvl) 137 73-393 [facility] CentralMxbwatpRJVVHLVZKL4650-65-29 01:27:00 Test Item Value Reference Range Interpretation Comments PT (test code = PT) 16.0 s 12.0-14.7 [id number] 01:27:00 Test Item Value Reference Range Interpretation Comments INR (test code = INR) 1.30 1 0.85-1.17 [facility] ArborGrgjfwoNKVZCLXAQX4417-88-18 01:27:00 Test Item Value Reference Range Interpretation Comments PTT (test code = PTT) 22.1 s 22.9-35.8 [facility] CampusRpykbnvYGZAFAXMRS2924-07-69 01:27:00 Test Item Value Reference Range Interpretation Comments Coronavirus (COVID-19) Not Detected (02/09/21 JAVED (test code = 8:27 PM) Coronavirus (COVID-19) JAVED) [facility] [id number] 01:27:00 Test Item Value Reference Range Interpretation Comments Troponin-I (test code no gt See_Comment [Auto mated message] The = Troponin-I) system which g enerated this result transmit sarah reference range : <=0.40. The reference r arelis was not used to interpr et this result as felicitas l/abnormal. [facility]2021-08-20 01:27:00 Test Item Value Reference Range Interpretation Comments Glucose Lvl (test code = Glucose Lvl) 102 70-99 [facility]2021-08-20 01:27:00 Test Item Value Reference Range Interpretation Comments BUN (test code = BUN) 12 7-22 [place] 853501-08-20 01:27:00 Test Item Value Reference Range Interpretation Comments Creatinine Lvl (test code = Creatinine 0.66 0.50-1.40 Lvl) [place] 853501-08-20 01:27:00 Test Item Value Reference Range Interpretation Comments Sodium Lvl (test code = Sodium Lvl) 142 135-145 [place] 853501-08-20 01:27:00 Test Item Value Reference Range Interpretation Comments Potassium Lvl (test code = Potassium 3.5 3.5-5.1 Lvl) [place] 853501-08-20 01:27:00 Test Item Value Reference Range Interpretation Comments Chloride Lvl (test code = Chloride Lvl) 116 95-109 [place] 853501-08-20 01:27:00 Test Item Value Reference Range Interpretation Comments CO2 (test code = CO2) 25 24-32 [place] 853501-08-20 01:27:00 Test Item Value Reference Range Interpretation Comments Calcium Lvl (test code = Calcium Lvl) 8.6 8.5-10.5 [place] 853501-08-20 01:27:00 Test Item Value Reference Range Interpretation Comments Total Protein (test code = Total 6.3 6.4-8.4 Protein) [place] 853501-08-20 01:27:00 Test Item Value Reference Range Interpretation Comments Albumin Lvl (test code = Albumin Lvl) 2.9 3.5-5.0 [place] 853501-08-20 01:27:00 Test Item Value Reference Range Interpretation Comments ALT (test code = ALT) 12 See_Comment [Auto mated message] The system which ge nerated this result transmit sarah reference range : <=65. The reference range was not used to interpr et this result as felicitas l/abnormal. [place] 853501-08-20 01:27:00 Test Item Value Reference Range Interpretation Comments AST (test code = AST) 8 See_Comment [Auto mated message] The system which ge nerated this result transmit sarah reference range : <=37. The reference range was not used to interpr et this result as felicitas l/abnormal. [facility]2021-08-20 01:27:00 Test Item Value Reference Range Interpretation Comments Alk Phos (test code = Alk Phos) 73 39-136 [place] 853501-08-20 01:27:00 Test Item Value Reference Range Interpretation Comments Bili Total (test code = Bili Total) 0.2 0.2-1.3 [place] 853501-08-20 01:27:00 Test Item Value Reference Range Interpretation Comments AGAP (test code = AGAP) 4.5 10.0-20.0 [facility]2021-08-20 01:27:00 Test Item Value Reference Range Interpretation Comments B/C Ratio (test code = B/C Ratio) 18 1 6-25 [place] 853501-08-20 01:27:00 Test Item Value Reference Range Interpretation Comments Globulin (test code = Globulin) 3.4 2.7-4.2 [place] 853501-08-20 01:27:00 Test Item Value Reference Range Interpretation Comments A/G Ratio (test code = A/G Ratio) 0.9 1 0.7-1.6 [facility]2021-08-20 01:27:00 Test Item Value Reference Range Interpretation Comments eGFR (test code = eGFR) 91 [facility]2021-08-20 01:27:00 Test Item Value Reference Range Interpretation Comments Lipase Lvl (test code = Lipase Lvl) 137 73-393 [facility] CentralXhonwviVWODAHWWGJ7431-68-43 01:27:00 Test Item Value Reference Range Interpretation Comments PT (test code = PT) 16.0 s 12.0-14.7 [facility] C[id number] 01:27:00 Test Item Value Reference Range Interpretation Comments INR (test code = INR) 1.30 1 0.85-1.17 [place] 139731-08-20 01:27:00 Test Item Value Reference Range Interpretation Comments PTT (test code = PTT) 22.1 s 22.9-35.8 [facility] CampusXulqrwqUZUQUEYAHE7810-98-34 01:27:00 Test Item Value Reference Range Interpretation Comments Coronavirus (COVID-19) Not Detected (02/09/21 JAVED (test code = 8:27 PM) Coronavirus (COVID-19) JAVED) [facility] [id number] 01:27:00 Test Item Value Reference Range Interpretation Comments Troponin-I (test code no gt See_Comment [Auto mated message] The = Troponin-I) system which g enerated this result transmit sarah reference range : <=0.40. The reference r arelis was not used to interpr et this result as felicitas l/abnormal. [facility] [employer] [id number] 01:27:00 Test Item Value Reference Range Interpretation Comments Glucose Lvl (test code = Glucose Lvl) 102 70-99 [facility] [id number] 01:27:00 Test Item Value Reference Range Interpretation Comments BUN (test code = BUN) 12 7-22 [facility] [id number] 01:27:00 Test Item Value Reference Range Interpretation Comments Creatinine Lvl (test code = Creatinine 0.66 0.50-1.40 Lvl) [facility] [id number] 01:27:00 Test Item Value Reference Range Interpretation Comments Sodium Lvl (test code = Sodium Lvl) 142 135-145 [facility] [id number] 01:27:00 Test Item Value Reference Range Interpretation Comments Potassium Lvl (test code = Potassium 3.5 3.5-5.1 Lvl) [facility] [employer] [id number] 01:27:00 Test Item Value Reference Range Interpretation Comments Chloride Lvl (test code = Chloride Lvl) 116 95-109 [facility] [employer] [id number] 01:27:00 Test Item Value Reference Range Interpretation Comments CO2 (test code = CO2) 25 24-32 [facility] [id number] 01:27:00 Test Item Value Reference Range Interpretation Comments Calcium Lvl (test code = Calcium Lvl) 8.6 8.5-10.5 [facility] [id number] 01:27:00 Test Item Value Reference Range Interpretation Comments Total Protein (test code = Total 6.3 6.4-8.4 Protein) [facility] [id number] 01:27:00 Test Item Value Reference Range Interpretation Comments Albumin Lvl (test code = Albumin Lvl) 2.9 3.5-5.0 [facility] [id number] 01:27:00 Test Item Value Reference Range Interpretation Comments ALT (test code = ALT) 12 See_Comment [Auto mated message] The system which ge nerated this result transmit sarah reference range : <=65. The reference range was not used to interpr et this result as felicitas l/abnormal. [facility] [employer] [id number] 01:27:00 Test Item Value Reference Range Interpretation Comments AST (test code = AST) 8 See_Comment [Auto mated message] The system which ge nerated this result transmit sarah reference range : <=37. The reference range was not used to interpr et this result as felicitas l/abnormal. [facility] [employer] [id number] 01:27:00 Test Item Value Reference Range Interpretation Comments Alk Phos (test code = Alk Phos) 73 39-136 [facility] [employer] [id number] 01:27:00 Test Item Value Reference Range Interpretation Comments Bili Total (test code = Bili Total) 0.2 0.2-1.3 [facility] [employer] [id number] 01:27:00 Test Item Value Reference Range Interpretation Comments AGAP (test code = AGAP) 4.5 10.0-20.0 [facility] [employer] [id number] 01:27:00 Test Item Value Reference Range Interpretation Comments B/C Ratio (test code = B/C Ratio) 18 1 6-25 [facility] [employer] [id number] 01:27:00 Test Item Value Reference Range Interpretation Comments Globulin (test code = Globulin) 3.4 2.7-4.2 [facility] [employer] [id number] 01:27:00 Test Item Value Reference Range Interpretation Comments A/G Ratio (test code = A/G Ratio) 0.9 1 0.7-1.6 [facility] TongalCARDIAC [id number] 01:27:00 Test Item Value Reference Range Interpretation Comments Troponin-I (test code no gt See_Comment [Auto mated message] The = Troponin-I) system which g enerated this result transmit sarah reference range : <=0.40. The reference r arelis was not used to interpr et this result as felicitas l/abnormal. [facility] [employer] [id number] 01:27:00 Test Item Value Reference Range Interpretation Comments eGFR (test code = eGFR) 91 [place] 853501-08-20 01:27:00 Test Item Value Reference Range Interpretation Comments Glucose Lvl (test code = Glucose Lvl) 102 70-99 [place] 853501-08-20 01:27:00 Test Item Value Reference Range Interpretation Comments BUN (test code = BUN) 12 7-22 [place] 853501-08-20 01:27:00 Test Item Value Reference Range Interpretation Comments Creatinine Lvl (test code = Creatinine 0.66 0.50-1.40 Lvl) [place] 853501-08-20 01:27:00 Test Item Value Reference Range Interpretation Comments Sodium Lvl (test code = Sodium Lvl) 142 135-145 [place] 853501-08-20 01:27:00 Test Item Value Reference Range Interpretation Comments Potassium Lvl (test code = Potassium 3.5 3.5-5.1 Lvl) [place] 853501-08-20 01:27:00 Test Item Value Reference Range Interpretation Comments Chloride Lvl (test code = Chloride Lvl) 116 95-109 [place] 853501-08-20 01:27:00 Test Item Value Reference Range Interpretation Comments CO2 (test code = CO2) 25 24-32 [place] 853501-08-20 01:27:00 Test Item Value Reference Range Interpretation Comments Calcium Lvl (test code = Calcium Lvl) 8.6 8.5-10.5 [place] 853501-08-20 01:27:00 Test Item Value Reference Range Interpretation Comments Total Protein (test code = Total 6.3 6.4-8.4 Protein) [place] 853501-08-20 01:27:00 Test Item Value Reference Range Interpretation Comments Albumin Lvl (test code = Albumin Lvl) 2.9 3.5-5.0 [place] 853501-08-20 01:27:00 Test Item Value Reference Range Interpretation Comments Lipase Lvl (test code = Lipase Lvl) 137 73-393 [place] 853501-08-20 01:27:00 Test Item Value Reference Range Interpretation Comments ALT (test code = ALT) 12 See_Comment [Auto mated message] The system which ge nerated this result transmit sarah reference range : <=65. The reference range was not used to interpr et this result as felicitas l/abnormal. [place] 853501-08-20 01:27:00 Test Item Value Reference Range Interpretation Comments AST (test code = AST) 8 See_Comment [Auto mated message] The system which ge nerated this result transmit sarah reference range : <=37. The reference range was not used to interpr et this result as felicitas l/abnormal. [place] 853501-08-20 01:27:00 Test Item Value Reference Range Interpretation Comments Alk Phos (test code = Alk Phos) 73 39-136 [place] 853501-08-20 01:27:00 Test Item Value Reference Range Interpretation Comments Bili Total (test code = Bili Total) 0.2 0.2-1.3 [place] 853501-08-20 01:27:00 Test Item Value Reference Range Interpretation Comments AGAP (test code = AGAP) 4.5 10.0-20.0 [place] 853501-08-20 01:27:00 Test Item Value Reference Range Interpretation Comments B/C Ratio (test code = B/C Ratio) 18 1 6-25 [place] 853501-08-20 01:27:00 Test Item Value Reference Range Interpretation Comments Globulin (test code = Globulin) 3.4 2.7-4.2 [place] 853501-08-20 01:27:00 Test Item Value Reference Range Interpretation Comments A/G Ratio (test code = A/G Ratio) 0.9 1 0.7-1.6 [place] 853501-08-20 01:27:00 Test Item Value Reference Range Interpretation Comments eGFR (test code = eGFR) 91 [place] 853501-08-20 01:27:00 Test Item Value Reference Range Interpretation Comments Lipase Lvl (test code = Lipase Lvl) 137 73-393 [place] 139731-08-20 01:27:00 Test Item Value Reference Range Interpretation Comments PT (test code = PT) 16.0 s 12.0-14.7 [facility]FyhicjlFICXZJCNEC7461-03-45 01:27:00 Test Item Value Reference Range Interpretation Comments PT (test code = PT) 16.0 s 12.0-14.7 [facility]borFcbsjnyCDAQQQKCHX8066-24-15 01:27:00 Test Item Value Reference Range Interpretation Comments INR (test code = INR) 1.30 1 0.85-1.17 [facility]borUlobegePCVNCELRUZ6483-26-98 01:27:00 Test Item Value Reference Range Interpretation Comments PTT (test code = PTT) 22.1 s 22.9-35.8 [facility] CampusKknbfofIOJNWKDOYE4364-87-71 01:27:00 Test Item Value Reference Range Interpretation Comments Coronavirus (COVID-19) Not Detected (02/09/21 JAVED (test code = 8:27 PM) Coronavirus (COVID-19) JAVED) [facility] ArborIqjhmxvOUJRXSUENW1873-86-86 01:27:00 Test Item Value Reference Range Interpretation Comments INR (test code = INR) 1.30 1 0.85-1.17 [facility]QirpqhvJFOCNTWXRI7282-37-21 01:27:00 Test Item Value Reference Range Interpretation Comments PTT (test code = PTT) 22.1 s 22.9-35.8 [facility]RbakidvJLEIWZLSTI2240-39-50 01:27:00 Test Item Value Reference Range Interpretation Comments Coronavirus (COVID-19) Not Detected (02/09/21 JAVED (test code = 8:27 PM) Coronavirus (COVID-19) JAVED) [id number] 01:27:00 Test Item Value Reference Range Interpretation Comments Troponin-I (test code no gt See_Comment [Auto mated message] The = Troponin-I) system which g enerated this result transmit sarah reference range : <=0.40. The reference r arelis was not used to interpr et this result as felicitas l/abnormal. [facility] [id number] 01:27:00 Test Item Value Reference Range Interpretation Comments Glucose Lvl (test code = Glucose Lvl) 102 70-99 [facility] [id number] 01:27:00 Test Item Value Reference Range Interpretation Comments BUN (test code = BUN) 12 - [facility]Style[facility] [id number] 01:27:00 Test Item Value Reference Range Interpretation Comments Creatinine Lvl (test code = Creatinine 0.66 0.50-1.40 Lvl) [facility] [id number] 01:27:00 Test Item Value Reference Range Interpretation Comments Sodium Lvl (test code = Sodium Lvl) 142 135-145 [facility] [id number] 01:27:00 Test Item Value Reference Range Interpretation Comments Potassium Lvl (test code = Potassium 3.5 3.5-5.1 Lvl) [facility] [id number] 01:27:00 Test Item Value Reference Range Interpretation Comments Chloride Lvl (test code = Chloride Lvl) 116 95-109 [facility] [id number] 01:27:00 Test Item Value Reference Range Interpretation Comments CO2 (test code = CO2) 25 24-32 [facility] [id number] 01:27:00 Test Item Value Reference Range Interpretation Comments Calcium Lvl (test code = Calcium Lvl) 8.6 8.5-10.5 [facility] [id number] 01:27:00 Test Item Value Reference Range Interpretation Comments Total Protein (test code = Total 6.3 6.4-8.4 Protein) [facility] [id number] 01:27:00 Test Item Value Reference Range Interpretation Comments Albumin Lvl (test code = Albumin Lvl) 2.9 3.5-5.0 [facility] [id number] 01:27:00 Test Item Value Reference Range Interpretation Comments ALT (test code = ALT) 12 See_Comment [Auto mated message] The system which ge nerated this result transmit sarah reference range : <=65. The reference range was not used to interpr et this result as felicitas l/abnormal. [facility] [id number] 01:27:00 Test Item Value Reference Range Interpretation Comments AST (test code = AST) 8 See_Comment [Auto mated message] The system which ge nerated this result transmit sarah reference range : <=37. The reference range was not used to interpr et this result as felicitas l/abnormal. [facility] [id number] 01:27:00 Test Item Value Reference Range Interpretation Comments Alk Phos (test code = Alk Phos) 73 39-136 [facility] [id number] 01:27:00 Test Item Value Reference Range Interpretation Comments Bili Total (test code = Bili Total) 0.2 0.2-1.3 [facility]2021-08-20 01:27:00 Test Item Value Reference Range Interpretation Comments AGAP (test code = AGAP) 4.5 10.0-20.0 [facility]2021-08-20 01:27:00 Test Item Value Reference Range Interpretation Comments B/C Ratio (test code = B/C Ratio) 18 1 6-25 [facility]2021-08-20 01:27:00 Test Item Value Reference Range Interpretation Comments Globulin (test code = Globulin) 3.4 2.7-4.2 [facility]2021-08-20 01:27:00 Test Item Value Reference Range Interpretation Comments A/G Ratio (test code = A/G Ratio) 0.9 1 0.7-1.6 [place] 853501-08-20 01:27:00 Test Item Value Reference Range Interpretation Comments eGFR (test code = eGFR) 91 [facility]2021-08-20 01:27:00 Test Item Value Reference Range Interpretation Comments Lipase Lvl (test code = Lipase Lvl) 137 73-393 [facility] CentralRfblfrcSIMYCEIYVW6810-35-99 01:27:00 Test Item Value Reference Range Interpretation Comments PT (test code = PT) 16.0 s 12.0-14.7 [id number] 01:27:00 Test Item Value Reference Range Interpretation Comments INR (test code = INR) 1.30 1 0.85-1.17 [id number] 01:27:00 Test Item Value Reference Range Interpretation Comments PTT (test code = PTT) 22.1 s 22.9-35.8 [facility] CampusZgienplPVENEYKUAT0423-98-45 01:27:00 Test Item Value Reference Range Interpretation Comments Coronavirus (COVID-19) Not Detected (02/09/21 JAVED (test code = 8:27 PM) Coronavirus (COVID-19) JAVED) [facility]CARD[facility] [id number] 01:27:00 Test Item Value Reference Range Interpretation Comments Troponin-I (test code no gt See_Comment [Auto mated message] The = Troponin-I) system which g enerated this result transmit sarah reference range : <=0.40. The reference r arelis was not used to interpr et this result as felicitas l/abnormal. [place] 853501-08-20 01:27:00 Test Item Value Reference Range Interpretation Comments Glucose Lvl (test code = Glucose Lvl) 102 70-99 [place] 853501-08-20 01:27:00 Test Item Value Reference Range Interpretation Comments BUN (test code = BUN) 12 7-22 [place] 853501-08-20 01:27:00 Test Item Value Reference Range Interpretation Comments Creatinine Lvl (test code = Creatinine 0.66 0.50-1.40 Lvl) [place] 853501-08-20 01:27:00 Test Item Value Reference Range Interpretation Comments Sodium Lvl (test code = Sodium Lvl) 142 135-145 [place] 853501-08-20 01:27:00 Test Item Value Reference Range Interpretation Comments Potassium Lvl (test code = Potassium 3.5 3.5-5.1 Lvl) [place] 853501-08-20 01:27:00 Test Item Value Reference Range Interpretation Comments Chloride Lvl (test code = Chloride Lvl) 116 95-109 [place] 853501-08-20 01:27:00 Test Item Value Reference Range Interpretation Comments CO2 (test code = CO2) 25 24-32 [place] 853501-08-20 01:27:00 Test Item Value Reference Range Interpretation Comments Calcium Lvl (test code = Calcium Lvl) 8.6 8.5-10.5 [place] 853501-08-20 01:27:00 Test Item Value Reference Range Interpretation Comments Total Protein (test code = Total 6.3 6.4-8.4 Protein) [place] 853501-08-20 01:27:00 Test Item Value Reference Range Interpretation Comments Albumin Lvl (test code = Albumin Lvl) 2.9 3.5-5.0 [place] 853501-08-20 01:27:00 Test Item Value Reference Range Interpretation Comments ALT (test code = ALT) 12 See_Comment [Auto mated message] The system which ge nerated this result transmit sarah reference range : <=65. The reference range was not used to interpr et this result as felicitas l/abnormal. [place] 853501-08-20 01:27:00 Test Item Value Reference Range Interpretation Comments AST (test code = AST) 8 See_Comment [Auto mated message] The system which ge nerated this result transmit sarah reference range : <=37. The reference range was not used to interpr et this result as felicitas l/abnormal. [facility] [id number] 01:27:00 Test Item Value Reference Range Interpretation Comments Alk Phos (test code = Alk Phos) 73 39-136 [facility] [id number] 01:27:00 Test Item Value Reference Range Interpretation Comments Bili Total (test code = Bili Total) 0.2 0.2-1.3 [facility] [id number] 01:27:00 Test Item Value Reference Range Interpretation Comments AGAP (test code = AGAP) 4.5 10.0-20.0 [facility] [id number] 01:27:00 Test Item Value Reference Range Interpretation Comments B/C Ratio (test code = B/C Ratio) 18 1 6-25 [facility] [id number] 01:27:00 Test Item Value Reference Range Interpretation Comments Globulin (test code = Globulin) 3.4 2.7-4.2 [facility] [id number] 01:27:00 Test Item Value Reference Range Interpretation Comments A/G Ratio (test code = A/G Ratio) 0.9 1 0.7-1.6 [facility] [id number] 01:27:00 Test Item Value Reference Range Interpretation Comments eGFR (test code = eGFR) 91 [facility] [id number] 01:27:00 Test Item Value Reference Range Interpretation Comments Lipase Lvl (test code = Lipase Lvl) 137 73-393 [place] 139731-08-20 01:27:00 Test Item Value Reference Range Interpretation Comments PT (test code = PT) 16.0 s 12.0-14.7 [facility] HospitalQejbncuUAWPITENDY8605-97-57 01:27:00 Test Item Value Reference Range Interpretation Comments INR (test code = INR) 1.30 1 0.85-1.17 [facility] HospitalZabddieIPFRGNASJY5480-18-43 01:27:00 Test Item Value Reference Range Interpretation Comments PTT (test code = PTT) 22.1 s 22.9-35.8 [facility] CampusPbjeylzUOAMYNYIHF3836-82-42 01:27:00 Test Item Value Reference Range Interpretation Comments Coronavirus (COVID-19) Not Detected (02/09/21 JAVED (test code = 8:27 PM) Coronavirus (COVID-19) JAVED) [facility]CARD[facility] [id number] 01:27:00 Test Item Value Reference Range Interpretation Comments Troponin-I (test code no gt See_Comment [Auto mated message] The = Troponin-I) system which g enerated this result transmit sarah reference range : <=0.40. The reference r arelis was not used to interpr et this result as felicitas l/abnormal. [facility] [id number] 01:27:00 Test Item Value Reference Range Interpretation Comments Glucose Lvl (test code = Glucose Lvl) 102 70-99 [facility] [id number] 01:27:00 Test Item Value Reference Range Interpretation Comments BUN (test code = BUN) 12 7-22 [facility] [id number] 01:27:00 Test Item Value Reference Range Interpretation Comments Creatinine Lvl (test code = Creatinine 0.66 0.50-1.40 Lvl) [facility] [id number] 01:27:00 Test Item Value Reference Range Interpretation Comments Sodium Lvl (test code = Sodium Lvl) 142 135-145 [facility] [id number] 01:27:00 Test Item Value Reference Range Interpretation Comments Potassium Lvl (test code = Potassium 3.5 3.5-5.1 Lvl) [facility] [id number] 01:27:00 Test Item Value Reference Range Interpretation Comments Chloride Lvl (test code = Chloride Lvl) 116 95-109 [facility] [id number] 01:27:00 Test Item Value Reference Range Interpretation Comments CO2 (test code = CO2) 25 24-32 [facility] [id number] 01:27:00 Test Item Value Reference Range Interpretation Comments Calcium Lvl (test code = Calcium Lvl) 8.6 8.5-10.5 [facility] [id number] 01:27:00 Test Item Value Reference Range Interpretation Comments Total Protein (test code = Total 6.3 6.4-8.4 Protein) [facility] CampusCHEM [id number] 01:27:00 Test Item Value Reference Range Interpretation Comments Albumin Lvl (test code = Albumin Lvl) 2.9 3.5-5.0 [facility] [id number] 01:27:00 Test Item Value Reference Range Interpretation Comments ALT (test code = ALT) 12 See_Comment [Auto mated message] The system which ge nerated this result transmit sarah reference range : <=65. The reference range was not used to interpr et this result as felicitas l/abnormal. [facility] [id number] 01:27:00 Test Item Value Reference Range Interpretation Comments AST (test code = AST) 8 See_Comment [Auto mated message] The system which ge nerated this result transmit sarah reference range : <=37. The reference range was not used to interpr et this result as felicitas l/abnormal. [facility] [id number] 01:27:00 Test Item Value Reference Range Interpretation Comments Alk Phos (test code = Alk Phos) 73 39-136 [facility] [id number] 01:27:00 Test Item Value Reference Range Interpretation Comments Bili Total (test code = Bili Total) 0.2 0.2-1.3 [facility] [employer] [id number] 01:27:00 Test Item Value Reference Range Interpretation Comments AGAP (test code = AGAP) 4.5 10.0-20.0 [facility] [employer] [id number] 01:27:00 Test Item Value Reference Range Interpretation Comments B/C Ratio (test code = B/C Ratio) 18 1 6-25 [facility] [id number] 01:27:00 Test Item Value Reference Range Interpretation Comments Globulin (test code = Globulin) 3.4 2.7-4.2 [facility] [employer] [id number] 01:27:00 Test Item Value Reference Range Interpretation Comments A/G Ratio (test code = A/G Ratio) 0.9 1 0.7-1.6 [facility] [id number] 01:27:00 Test Item Value Reference Range Interpretation Comments eGFR (test code = eGFR) 91 [facility] [id number] 01:27:00 Test Item Value Reference Range Interpretation Comments Lipase Lvl (test code = Lipase Lvl) 137 73-393 [facility] CampusKeavabiVMFCRVLMBI0435-68-14 01:27:00 Test Item Value Reference Range Interpretation Comments PT (test code = PT) 16.0 s 12.0-14.7 [id number] 01:27:00 Test Item Value Reference Range Interpretation Comments INR (test code = INR) 1.30 1 0.85-1.17 [id number] 01:27:00 Test Item Value Reference Range Interpretation Comments PTT (test code = PTT) 22.1 s 22.9-35.8 [facility] CampusZzwbsfwKGZKKXBJHL8590-80-68 01:27:00 Test Item Value Reference Range Interpretation Comments Coronavirus (COVID-19) Not Detected (02/09/21 JAVED (test code = 8:27 PM) Coronavirus (COVID-19) JAVED) [facility] [id number] 01:27:00 Test Item Value Reference Range Interpretation Comments Troponin-I (test code no gt See_Comment [Auto mated message] The = Troponin-I) system which g enerated this result transmit sarah reference range : <=0.40. The reference r arelis was not used to interpr et this result as felicitas l/abnormal. [facility] [id number] 01:27:00 Test Item Value Reference Range Interpretation Comments Glucose Lvl (test code = Glucose Lvl) 102 70-99 [facility]2021-08-20 01:27:00 Test Item Value Reference Range Interpretation Comments BUN (test code = BUN) 12 7-22 [facility]2021-08-20 01:27:00 Test Item Value Reference Range Interpretation Comments Creatinine Lvl (test code = Creatinine 0.66 0.50-1.40 Lvl) [facility]2021-08-20 01:27:00 Test Item Value Reference Range Interpretation Comments Sodium Lvl (test code = Sodium Lvl) 142 135-145 [facility]2021-08-20 01:27:00 Test Item Value Reference Range Interpretation Comments Potassium Lvl (test code = Potassium 3.5 3.5-5.1 Lvl) [facility]2021-08-20 01:27:00 Test Item Value Reference Range Interpretation Comments Chloride Lvl (test code = Chloride Lvl) 116 95-109 [facility] HospitalWhoisBONNIE [place] [id number] 01:27:00 Test Item Value Reference Range Interpretation Comments CO2 (test code = CO2) 25 24-32 [facility] HospitalWhoisCOMMUNITY [id number] 01:27:00 Test Item Value Reference Range Interpretation Comments Calcium Lvl (test code = Calcium Lvl) 8.6 8.5-10.5 [facility] HospitalWhoisBONNIE [place] [id number] 01:27:00 Test Item Value Reference Range Interpretation Comments Total Protein (test code = Total 6.3 6.4-8.4 Protein) [facility] HospitalWhoisCOMMUNITY [id number] 01:27:00 Test Item Value Reference Range Interpretation Comments Albumin Lvl (test code = Albumin Lvl) 2.9 3.5-5.0 [facility] [id number] 01:27:00 Test Item Value Reference Range Interpretation Comments ALT (test code = ALT) 12 See_Comment [Auto mated message] The system which ge nerated this result transmit sarah reference range : <=65. The reference range was not used to interpr et this result as felicitas l/abnormal. [facility] [id number] 01:27:00 Test Item Value Reference Range Interpretation Comments AST (test code = AST) 8 See_Comment [Auto mated message] The system which ge nerated this result transmit sarah reference range : <=37. The reference range was not used to interpr et this result as felicitas l/abnormal. [facility] [id number] 01:27:00 Test Item Value Reference Range Interpretation Comments Alk Phos (test code = Alk Phos) 73 39-136 [facility] [id number] 01:27:00 Test Item Value Reference Range Interpretation Comments Bili Total (test code = Bili Total) 0.2 0.2-1.3 [facility] [id number] 01:27:00 Test Item Value Reference Range Interpretation Comments AGAP (test code = AGAP) 4.5 10.0-20.0 [facility] [id number] 01:27:00 Test Item Value Reference Range Interpretation Comments B/C Ratio (test code = B/C Ratio) 18 1 6-25 [facility]2021-08-20 01:27:00 Test Item Value Reference Range Interpretation Comments Globulin (test code = Globulin) 3.4 2.7-4.2 [facility]2021-08-20 01:27:00 Test Item Value Reference Range Interpretation Comments A/G Ratio (test code = A/G Ratio) 0.9 1 0.7-1.6 [facility]2021-08-20 01:27:00 Test Item Value Reference Range Interpretation Comments eGFR (test code = eGFR) 91 [facility] [id number] 01:27:00 Test Item Value Reference Range Interpretation Comments Lipase Lvl (test code = Lipase Lvl) 137 73-393 [facility] CentralCujxxvyAQIZFMLBBZ6042-37-76 01:27:00 Test Item Value Reference Range Interpretation Comments PT (test code = PT) 16.0 s 12.0-14.7 [facility] Ce[id number] 01:27:00 Test Item Value Reference Range Interpretation Comments INR (test code = INR) 1.30 1 0.85-1.17 [id number] 01:27:00 Test Item Value Reference Range Interpretation Comments PTT (test code = PTT) 22.1 s 22.9-35.8 [facility] CampusSeqvnquXTZZHJFTSW7097-02-36 01:27:00 Test Item Value Reference Range Interpretation Comments Coronavirus (COVID-19) Not Detected (02/09/21 JAVED (test code = 8:27 PM) Coronavirus (COVID-19) JAVED) [facility] [id number] 01:27:00 Test Item Value Reference Range Interpretation Comments Troponin-I (test code no gt See_Comment [Auto mated message] The = Troponin-I) system which g enerated this result transmit sarah reference range : <=0.40. The reference r arelis was not used to interpr et this result as felicitas l/abnormal. [facility]2021-08-20 01:27:00 Test Item Value Reference Range Interpretation Comments Glucose Lvl (test code = Glucose Lvl) 102 70-99 [facility]2021-08-20 01:27:00 Test Item Value Reference Range Interpretation Comments BUN (test code = BUN) 12 7-22 [place] 853501-08-20 01:27:00 Test Item Value Reference Range Interpretation Comments Creatinine Lvl (test code = Creatinine 0.66 0.50-1.40 Lvl) [place] 853501-08-20 01:27:00 Test Item Value Reference Range Interpretation Comments Sodium Lvl (test code = Sodium Lvl) 142 135-145 [place] 853501-08-20 01:27:00 Test Item Value Reference Range Interpretation Comments Potassium Lvl (test code = Potassium 3.5 3.5-5.1 Lvl) [address]08-20 01:27:00 Test Item Value Reference Range Interpretation Comments Chloride Lvl (test code = Chloride Lvl) 116 95-109 [address]08-20 01:27:00 Test Item Value Reference Range Interpretation Comments CO2 (test code = CO2) 25 24-32 [place] [address]-08-20 01:27:00 Test Item Value Reference Range Interpretation Comments Calcium Lvl (test code = Calcium Lvl) 8.6 8.5-10.5 [place] [address]-08-20 01:27:00 Test Item Value Reference Range Interpretation Comments Total Protein (test code = Total 6.3 6.4-8.4 Protein) [address]08-20 01:27:00 Test Item Value Reference Range Interpretation Comments Albumin Lvl (test code = Albumin Lvl) 2.9 3.5-5.0 [place] 853501-08-20 01:27:00 Test Item Value Reference Range Interpretation Comments ALT (test code = ALT) 12 See_Comment [Auto mated message] The system which ge nerated this result transmit sarah reference range : <=65. The reference range was not used to interpr et this result as felicitas l/abnormal. [place] [address]-08-20 01:27:00 Test Item Value Reference Range Interpretation Comments AST (test code = AST) 8 See_Comment [Auto mated message] The system which ge nerated this result transmit sarah reference range : <=37. The reference range was not used to interpr et this result as felicitas l/abnormal. [place] [address]-08-20 01:27:00 Test Item Value Reference Range Interpretation Comments Alk Phos (test code = Alk Phos) 73 39-136 [facility]2021-08-20 01:27:00 Test Item Value Reference Range Interpretation Comments Bili Total (test code = Bili Total) 0.2 0.2-1.3 [facility]2021-08-20 01:27:00 Test Item Value Reference Range Interpretation Comments AGAP (test code = AGAP) 4.5 10.0-20.0 [facility]2021-08-20 01:27:00 Test Item Value Reference Range Interpretation Comments B/C Ratio (test code = B/C Ratio) 18 1 6-25 [facility]2021-08-20 01:27:00 Test Item Value Reference Range Interpretation Comments Globulin (test code = Globulin) 3.4 2.7-4.2 [facility]2021-08-20 01:27:00 Test Item Value Reference Range Interpretation Comments A/G Ratio (test code = A/G Ratio) 0.9 1 0.7-1.6 [facility]2021-08-20 01:27:00 Test Item Value Reference Range Interpretation Comments eGFR (test code = eGFR) 91 [facility]2021-08-20 01:27:00 Test Item Value Reference Range Interpretation Comments Lipase Lvl (test code = Lipase Lvl) 137 73-393 [facility] CentralXmsjifiDLVDTSUALL4377-09-63 01:27:00 Test Item Value Reference Range Interpretation Comments PT (test code = PT) 16.0 s 12.0-14.7 [facility] CentralFbpjtbiFAOAITMFYR4290-76-74 01:27:00 Test Item Value Reference Range Interpretation Comments INR (test code = INR) 1.30 1 0.85-1.17 [facility] CentralQzpkrrcZDUZWOFSCZ8160-43-68 01:27:00 Test Item Value Reference Range Interpretation Comments PTT (test code = PTT) 22.1 s 22.9-35.8 [facility] CampusSrfjfooXHIIZLGHLV6138-85-07 01:27:00 Test Item Value Reference Range Interpretation Comments Coronavirus (COVID-19) Not Detected (02/09/21 JAVED (test code = 8:27 PM) Coronavirus (COVID-19) JAVED) [facility] [id number] 01:27:00 Test Item Value Reference Range Interpretation Comments Troponin-I (test code no gt See_Comment [Auto mated message] The = Troponin-I) system which g enerated this result transmit sarah reference range : <=0.40. The reference r arelis was not used to interpr et this result as felicitas l/abnormal. [facility] [id number] 01:27:00 Test Item Value Reference Range Interpretation Comments Glucose Lvl (test code = Glucose Lvl) 102 70-99 [facility] [id number] 01:27:00 Test Item Value Reference Range Interpretation Comments BUN (test code = BUN) 12 7-22 [place] 853501-08-20 01:27:00 Test Item Value Reference Range Interpretation Comments Creatinine Lvl (test code = Creatinine 0.66 0.50-1.40 Lvl) [place] 853501-08-20 01:27:00 Test Item Value Reference Range Interpretation Comments Sodium Lvl (test code = Sodium Lvl) 142 135-145 [facility] [id number] 01:27:00 Test Item Value Reference Range Interpretation Comments Potassium Lvl (test code = Potassium 3.5 3.5-5.1 Lvl) [facility] [id number] 01:27:00 Test Item Value Reference Range Interpretation Comments Chloride Lvl (test code = Chloride Lvl) 116 95-109 [facility] [id number] 01:27:00 Test Item Value Reference Range Interpretation Comments CO2 (test code = CO2) 25 24-32 [facility] [id number] 01:27:00 Test Item Value Reference Range Interpretation Comments Calcium Lvl (test code = Calcium Lvl) 8.6 8.5-10.5 [facility] [id number] 01:27:00 Test Item Value Reference Range Interpretation Comments Total Protein (test code = Total 6.3 6.4-8.4 Protein) [facility] [id number] 01:27:00 Test Item Value Reference Range Interpretation Comments Albumin Lvl (test code = Albumin Lvl) 2.9 3.5-5.0 [facility] [id number] 01:27:00 Test Item Value Reference Range Interpretation Comments ALT (test code = ALT) 12 See_Comment [Auto mated message] The system which ge nerated this result transmit sarah reference range : <=65. The reference range was not used to interpr et this result as felicitas l/abnormal. [facility] [employer] [id number] 01:27:00 Test Item Value Reference Range Interpretation Comments AST (test code = AST) 8 See_Comment [Auto mated message] The system which ge nerated this result transmit sarah reference range : <=37. The reference range was not used to interpr et this result as felicitas l/abnormal. [facility] [employer] [id number] 01:27:00 Test Item Value Reference Range Interpretation Comments Alk Phos (test code = Alk Phos) 73 39-136 [facility] [employer] [id number] 01:27:00 Test Item Value Reference Range Interpretation Comments Bili Total (test code = Bili Total) 0.2 0.2-1.3 [facility] [employer] [id number] 01:27:00 Test Item Value Reference Range Interpretation Comments AGAP (test code = AGAP) 4.5 10.0-20.0 [facility] [employer] [id number] 01:27:00 Test Item Value Reference Range Interpretation Comments B/C Ratio (test code = B/C Ratio) 18 1 6-25 [facility] [employer] [id number] 01:27:00 Test Item Value Reference Range Interpretation Comments Globulin (test code = Globulin) 3.4 2.7-4.2 [facility] [employer] [id number] 01:27:00 Test Item Value Reference Range Interpretation Comments A/G Ratio (test code = A/G Ratio) 0.9 1 0.7-1.6 [facility] [employer] [id number] 01:27:00 Test Item Value Reference Range Interpretation Comments eGFR (test code = eGFR) 91 [facility] [employer] [id number] 01:27:00 Test Item Value Reference Range Interpretation Comments Lipase Lvl (test code = Lipase Lvl) 137 73-393 [facility]HzxqxnvRPBJEENSGM5558-00-65 01:27:00 Test Item Value Reference Range Interpretation Comments PT (test code = PT) 16.0 s 12.0-14.7 [facility] [id number] 01:27:00 Test Item Value Reference Range Interpretation Comments INR (test code = INR) 1.30 1 0.85-1.17 [facility] [id number] 01:27:00 Test Item Value Reference Range Interpretation Comments PTT (test code = PTT) 22.1 s 22.9-35.8 [facility] CampusVvxeojtYKUXVEMQUB3811-31-07 01:27:00 Test Item Value Reference Range Interpretation Comments Coronavirus (COVID-19) Not Detected (02/09/21 JAVED (test code = 8:27 PM) Coronavirus (COVID-19) JAVED) [facility] [id number] 01:27:00 Test Item Value Reference Range Interpretation Comments Troponin-I (test code no gt See_Comment [Auto mated message] The = Troponin-I) system which g enerated this result transmit sarah reference range : <=0.40. The reference r arelis was not used to interpr et this result as felicitas l/abnormal. [facility] [id number] 01:27:00 Test Item Value Reference Range Interpretation Comments Glucose Lvl (test code = Glucose Lvl) 102 70-99 [facility]2021-08-20 01:27:00 Test Item Value Reference Range Interpretation Comments BUN (test code = BUN) 12 7-22 [facility]2021-08-20 01:27:00 Test Item Value Reference Range Interpretation Comments Creatinine Lvl (test code = Creatinine 0.66 0.50-1.40 Lvl) [facility]2021-08-20 01:27:00 Test Item Value Reference Range Interpretation Comments Sodium Lvl (test code = Sodium Lvl) 142 135-145 [facility]2021-08-20 01:27:00 Test Item Value Reference Range Interpretation Comments Potassium Lvl (test code = Potassium 3.5 3.5-5.1 Lvl) [facility]2021-08-20 01:27:00 Test Item Value Reference Range Interpretation Comments Chloride Lvl (test code = Chloride Lvl) 116 95-109 [facility]2021-08-20 01:27:00 Test Item Value Reference Range Interpretation Comments CO2 (test code = CO2) 25 24-32 [facility]2021-08-20 01:27:00 Test Item Value Reference Range Interpretation Comments Calcium Lvl (test code = Calcium Lvl) 8.6 8.5-10.5 [place] 853501-08-20 01:27:00 Test Item Value Reference Range Interpretation Comments Total Protein (test code = Total 6.3 6.4-8.4 Protein) [place] 853501-08-20 01:27:00 Test Item Value Reference Range Interpretation Comments Albumin Lvl (test code = Albumin Lvl) 2.9 3.5-5.0 [place] 853501-08-20 01:27:00 Test Item Value Reference Range Interpretation Comments ALT (test code = ALT) 12 See_Comment [Auto mated message] The system which ge nerated this result transmit sarah reference range : <=65. The reference range was not used to interpr et this result as felicitas l/abnormal. [place] 853501-08-20 01:27:00 Test Item Value Reference Range Interpretation Comments AST (test code = AST) 8 See_Comment [Auto mated message] The system which ge nerated this result transmit sarah reference range : <=37. The reference range was not used to interpr et this result as felicitas l/abnormal. [place] 853501-08-20 01:27:00 Test Item Value Reference Range Interpretation Comments Alk Phos (test code = Alk Phos) 73 39-136 [place] 853501-08-20 01:27:00 Test Item Value Reference Range Interpretation Comments Bili Total (test code = Bili Total) 0.2 0.2-1.3 [place] 853501-08-20 01:27:00 Test Item Value Reference Range Interpretation Comments AGAP (test code = AGAP) 4.5 10.0-20.0 [facility]WhoisB[facility] [id number] 01:27:00 Test Item Value Reference Range Interpretation Comments B/C Ratio (test code = B/C Ratio) 18 1 6-25 [place] [address]-08-20 01:27:00 Test Item Value Reference Range Interpretation Comments Globulin (test code = Globulin) 3.4 2.7-4.2 [facility] [id number] 01:27:00 Test Item Value Reference Range Interpretation Comments A/G Ratio (test code = A/G Ratio) 0.9 1 0.7-1.6 [facility]2021-08-20 01:27:00 Test Item Value Reference Range Interpretation Comments eGFR (test code = eGFR) 91 [facility] [id number] 01:27:00 Test Item Value Reference Range Interpretation Comments Lipase Lvl (test code = Lipase Lvl) 137 73-393 [facility]MqjpodbMWHPYYTNYX8214-97-19 01:27:00 Test Item Value Reference Range Interpretation Comments PT (test code = PT) 16.0 s 12.0-14.7 [facility]txdiuaNHJDSMDMNU0282-80-74 01:27:00 Test Item Value Reference Range Interpretation Comments INR (test code = INR) 1.30 1 0.85-1.17 [facility] CentralEmdhdzsWSHLCZNHTH0703-04-75 01:27:00 Test Item Value Reference Range Interpretation Comments PTT (test code = PTT) 22.1 s 22.9-35.8 [facility] CampusUzfyjdvWYSYMJNPTG3672-46-03 01:27:00 Test Item Value Reference Range Interpretation Comments Coronavirus (COVID-19) Not Detected (02/09/21 JAVED (test code = 8:27 PM) Coronavirus (COVID-19) JAVED) [facility] [id number] 01:27:00 Test Item Value Reference Range Interpretation Comments Troponin-I (test code no gt See_Comment [Auto mated message] The = Troponin-I) system which g enerated this result transmit sarah reference range : <=0.40. The reference r arelis was not used to interpr et this result as felicitas l/abnormal. [facility]2021-08-20 01:27:00 Test Item Value Reference Range Interpretation Comments Glucose Lvl (test code = Glucose Lvl) 102 70-99 [facility]2021-08-20 01:27:00 Test Item Value Reference Range Interpretation Comments BUN (test code = BUN) 12 7-22 [facility]2021-08-20 01:27:00 Test Item Value Reference Range Interpretation Comments Creatinine Lvl (test code = Creatinine 0.66 0.50-1.40 Lvl) [facility]2021-08-20 01:27:00 Test Item Value Reference Range Interpretation Comments Sodium Lvl (test code = Sodium Lvl) 142 135-145 [place] [address]3501-08-20 01:27:00 Test Item Value Reference Range Interpretation Comments Potassium Lvl (test code = Potassium 3.5 3.5-5.1 Lvl) [place] [address]-08-20 01:27:00 Test Item Value Reference Range Interpretation Comments Chloride Lvl (test code = Chloride Lvl) 116 95-109 [place] 853501-08-20 01:27:00 Test Item Value Reference Range Interpretation Comments CO2 (test code = CO2) 25 24-32 [place] [address]-08-20 01:27:00 Test Item Value Reference Range Interpretation Comments Calcium Lvl (test code = Calcium Lvl) 8.6 8.5-10.5 [facility] [id number] 01:27:00 Test Item Value Reference Range Interpretation Comments Total Protein (test code = Total 6.3 6.4-8.4 Protein) [address]08-20 01:27:00 Test Item Value Reference Range Interpretation Comments Albumin Lvl (test code = Albumin Lvl) 2.9 3.5-5.0 [place] 853501-08-20 01:27:00 Test Item Value Reference Range Interpretation Comments ALT (test code = ALT) 12 See_Comment [Auto mated message] The system which ge nerated this result transmit sarah reference range : <=65. The reference range was not used to interpr et this result as felicitas l/abnormal. [place] [address]3501-08-20 01:27:00 Test Item Value Reference Range Interpretation Comments AST (test code = AST) 8 See_Comment [Auto mated message] The system which ge nerated this result transmit sarah reference range : <=37. The reference range was not used to interpr et this result as felicitas l/abnormal. [place] 853501-08-20 01:27:00 Test Item Value Reference Range Interpretation Comments Alk Phos (test code = Alk Phos) 73 39-136 [place] 853501-08-20 01:27:00 Test Item Value Reference Range Interpretation Comments Bili Total (test code = Bili Total) 0.2 0.2-1.3 [place] [address]-08-20 01:27:00 Test Item Value Reference Range Interpretation Comments AGAP (test code = AGAP) 4.5 10.0-20.0 [facility]2021-08-20 01:27:00 Test Item Value Reference Range Interpretation Comments B/C Ratio (test code = B/C Ratio) 18 1 6-25 [facility] [id number] 01:27:00 Test Item Value Reference Range Interpretation Comments Globulin (test code = Globulin) 3.4 2.7-4.2 [facility]2021-08-20 01:27:00 Test Item Value Reference Range Interpretation Comments A/G Ratio (test code = A/G Ratio) 0.9 1 0.7-1.6 [facility]2021-08-20 01:27:00 Test Item Value Reference Range Interpretation Comments eGFR (test code = eGFR) 91 [facility]2021-08-20 01:27:00 Test Item Value Reference Range Interpretation Comments Lipase Lvl (test code = Lipase Lvl) 137 73-393 [facility] CentralMlyhfutUIVLGKBBFR1736-98-29 01:27:00 Test Item Value Reference Range Interpretation Comments PT (test code = PT) 16.0 s 12.0-14.7 [facility] CampusZaztzmeGUGJFLFCFU6822-11-89 01:27:00 Test Item Value Reference Range Interpretation Comments INR (test code = INR) 1.30 1 0.85-1.17 [facility]UdyzpqaPWXEPPAZVN0302-12-17 01:27:00 Test Item Value Reference Range Interpretation Comments PTT (test code = PTT) 22.1 s 22.9-35.8 [facility] CampusXxxvmtfGBZGWINISS9565-54-87 01:27:00 Test Item Value Reference Range Interpretation Comments Coronavirus (COVID-19) Not Detected (02/09/21 JAVED (test code = 8:27 PM) Coronavirus (COVID-19) JAVED) [facility] [id number] 01:27:00 Test Item Value Reference Range Interpretation Comments Troponin-I (test code no gt See_Comment [Auto mated message] The = Troponin-I) system which g enerated this result transmit sarah reference range : <=0.40. The reference r arelis was not used to interpr et this result as felicitas l/abnormal. [facility]2021-08-20 01:27:00 Test Item Value Reference Range Interpretation Comments Glucose Lvl (test code = Glucose Lvl) 102 70-99 [place] 853501-08-20 01:27:00 Test Item Value Reference Range Interpretation Comments BUN (test code = BUN) 12 7-22 [place] 853501-08-20 01:27:00 Test Item Value Reference Range Interpretation Comments Creatinine Lvl (test code = Creatinine 0.66 0.50-1.40 Lvl) [place] [address]3501-08-20 01:27:00 Test Item Value Reference Range Interpretation Comments Sodium Lvl (test code = Sodium Lvl) 142 135-145 [place] 853501-08-20 01:27:00 Test Item Value Reference Range Interpretation Comments Potassium Lvl (test code = Potassium 3.5 3.5-5.1 Lvl) [place] [address]3501-08-20 01:27:00 Test Item Value Reference Range Interpretation Comments Chloride Lvl (test code = Chloride Lvl) 116 95-109 [place] 853501-08-20 01:27:00 Test Item Value Reference Range Interpretation Comments CO2 (test code = CO2) 25 24-32 [place] 853501-08-20 01:27:00 Test Item Value Reference Range Interpretation Comments Calcium Lvl (test code = Calcium Lvl) 8.6 8.5-10.5 [place] [address]3501-08-20 01:27:00 Test Item Value Reference Range Interpretation Comments Total Protein (test code = Total 6.3 6.4-8.4 Protein) [place] [address]3501-08-20 01:27:00 Test Item Value Reference Range Interpretation Comments Albumin Lvl (test code = Albumin Lvl) 2.9 3.5-5.0 [place] [address]3501-08-20 01:27:00 Test Item Value Reference Range Interpretation Comments ALT (test code = ALT) 12 See_Comment [Auto mated message] The system which ge nerated this result transmit sarah reference range : <=65. The reference range was not used to interpr et this result as felicitas l/abnormal. [place] [address]3501-08-20 01:27:00 Test Item Value Reference Range Interpretation Comments AST (test code = AST) 8 See_Comment [Auto mated message] The system which ge nerated this result transmit sarah reference range : <=37. The reference range was not used to interpr et this result as felicitas l/abnormal. [facility]2021-08-20 01:27:00 Test Item Value Reference Range Interpretation Comments Alk Phos (test code = Alk Phos) 73 39-136 [place] 853501-08-20 01:27:00 Test Item Value Reference Range Interpretation Comments Bili Total (test code = Bili Total) 0.2 0.2-1.3 [place] [address]3501-08-20 01:27:00 Test Item Value Reference Range Interpretation Comments AGAP (test code = AGAP) 4.5 10.0-20.0 [place] [address]3501-08-20 01:27:00 Test Item Value Reference Range Interpretation Comments B/C Ratio (test code = B/C Ratio) 18 1 6-25 [place] 853501-08-20 01:27:00 Test Item Value Reference Range Interpretation Comments Globulin (test code = Globulin) 3.4 2.7-4.2 [facility]2021-08-20 01:27:00 Test Item Value Reference Range Interpretation Comments A/G Ratio (test code = A/G Ratio) 0.9 1 0.7-1.6 [place] [address]3501-08-20 01:27:00 Test Item Value Reference Range Interpretation Comments eGFR (test code = eGFR) 91 [facility]2021-08-20 01:27:00 Test Item Value Reference Range Interpretation Comments Lipase Lvl (test code = Lipase Lvl) 137 73-393 [facility] CentralRfqhrrpCGFGRBPZPR4535-86-17 01:27:00 Test Item Value Reference Range Interpretation Comments PT (test code = PT) 16.0 s 12.0-14.7 [place] 139731-08-20 01:27:00 Test Item Value Reference Range Interpretation Comments INR (test code = INR) 1.30 1 0.85-1.17 [place] 139731-08-20 01:27:00 Test Item Value Reference Range Interpretation Comments PTT (test code = PTT) 22.1 s 22.9-35.8 [facility] CampusSwczwldIIQPCRXJTT3261-99-06 01:27:00 Test Item Value Reference Range Interpretation Comments Coronavirus (COVID-19) Not Detected (02/09/21 JAVED (test code = 8:27 PM) Coronavirus (COVID-19) JAVED) [facility] [id number] 01:27:00 Test Item Value Reference Range Interpretation Comments Troponin-I (test code no gt See_Comment [Auto mated message] The = Troponin-I) system which g enerated this result transmit sarah reference range : <=0.40. The reference r arelis was not used to interpr et this result as felicitas l/abnormal. [facility] [employer] [id number] 01:27:00 Test Item Value Reference Range Interpretation Comments Glucose Lvl (test code = Glucose Lvl) 102 70-99 [facility] [employer] [id number] 01:27:00 Test Item Value Reference Range Interpretation Comments BUN (test code = BUN) 12 7-22 [facility] [id number] 01:27:00 Test Item Value Reference Range Interpretation Comments Creatinine Lvl (test code = Creatinine 0.66 0.50-1.40 Lvl) [facility] [id number] 01:27:00 Test Item Value Reference Range Interpretation Comments Sodium Lvl (test code = Sodium Lvl) 142 135-145 [facility] [employer] [id number] 01:27:00 Test Item Value Reference Range Interpretation Comments Potassium Lvl (test code = Potassium 3.5 3.5-5.1 Lvl) [facility] [id number] 01:27:00 Test Item Value Reference Range Interpretation Comments Chloride Lvl (test code = Chloride Lvl) 116 95-109 [facility] [id number] 01:27:00 Test Item Value Reference Range Interpretation Comments CO2 (test code = CO2) 25 24-32 [facility] [id number] 01:27:00 Test Item Value Reference Range Interpretation Comments Calcium Lvl (test code = Calcium Lvl) 8.6 8.5-10.5 [facility] [id number] 01:27:00 Test Item Value Reference Range Interpretation Comments Total Protein (test code = Total 6.3 6.4-8.4 Protein) [facility] [id number] 01:27:00 Test Item Value Reference Range Interpretation Comments Albumin Lvl (test code = Albumin Lvl) 2.9 3.5-5.0 [facility] [employer] [id number] 01:27:00 Test Item Value Reference Range Interpretation Comments ALT (test code = ALT) 12 See_Comment [Auto mated message] The system which ge nerated this result transmit sarah reference range : <=65. The reference range was not used to interpr et this result as felicitas l/abnormal. [facility] [employer] [id number] 01:27:00 Test Item Value Reference Range Interpretation Comments AST (test code = AST) 8 See_Comment [Auto mated message] The system which ge nerated this result transmit sarah reference range : <=37. The reference range was not used to interpr et this result as felicitas l/abnormal. [facility] [employer] [id number] 01:27:00 Test Item Value Reference Range Interpretation Comments Alk Phos (test code = Alk Phos) 73 39-136 [facility] [employer] [id number] 01:27:00 Test Item Value Reference Range Interpretation Comments Bili Total (test code = Bili Total) 0.2 0.2-1.3 [facility] [employer] [id number] 01:27:00 Test Item Value Reference Range Interpretation Comments AGAP (test code = AGAP) 4.5 10.0-20.0 [facility] [employer] [id number] 01:27:00 Test Item Value Reference Range Interpretation Comments B/C Ratio (test code = B/C Ratio) 18 1 6-25 [facility] [employer] [id number] 01:27:00 Test Item Value Reference Range Interpretation Comments Globulin (test code = Globulin) 3.4 2.7-4.2 [facility] [employer] [id number] 01:27:00 Test Item Value Reference Range Interpretation Comments A/G Ratio (test code = A/G Ratio) 0.9 1 0.7-1.6 [facility] [employer] [id number] 01:27:00 Test Item Value Reference Range Interpretation Comments eGFR (test code = eGFR) 91 [facility] [id number] 01:27:00 Test Item Value Reference Range Interpretation Comments Lipase Lvl (test code = Lipase Lvl) 137 73-393 [facility] CentralTckmotkLEVCYZKQWG0658-25-59 01:27:00 Test Item Value Reference Range Interpretation Comments PT (test code = PT) 16.0 s 12.0-14.7 [facility] HospitalFehdmgkLLDTLXTVZG2124-32-95 01:27:00 Test Item Value Reference Range Interpretation Comments INR (test code = INR) 1.30 1 0.85-1.17 [facility] CampusLunobgzBSRIZENCYF0310-41-16 01:27:00 Test Item Value Reference Range Interpretation Comments PTT (test code = PTT) 22.1 s 22.9-35.8 [facility] HospitalLxtqzqfSOKYBDKFMA2468-42-26 01:27:00 Test Item Value Reference Range Interpretation Comments Coronavirus (COVID-19) Not Detected (02/09/21 JAVED (test code = 8:27 PM) Coronavirus (COVID-19) JAVED) [facility] [id number] 01:27:00 Test Item Value Reference Range Interpretation Comments Troponin-I (test code no gt See_Comment [Auto mated message] The = Troponin-I) system which g enerated this result transmit sarah reference range : <=0.40. The reference r arelis was not used to interpr et this result as felicitas l/abnormal. [facility] [id number] 01:27:00 Test Item Value Reference Range Interpretation Comments Glucose Lvl (test code = Glucose Lvl) 102 70-99 [facility] [id number] 01:27:00 Test Item Value Reference Range Interpretation Comments BUN (test code = BUN) 12 7-22 [facility] [id number] 01:27:00 Test Item Value Reference Range Interpretation Comments Creatinine Lvl (test code = Creatinine 0.66 0.50-1.40 Lvl) [facility] [id number] 01:27:00 Test Item Value Reference Range Interpretation Comments Sodium Lvl (test code = Sodium Lvl) 142 135-145 [facility] [id number] 01:27:00 Test Item Value Reference Range Interpretation Comments Potassium Lvl (test code = Potassium 3.5 3.5-5.1 Lvl) [facility] [id number] 01:27:00 Test Item Value Reference Range Interpretation Comments Chloride Lvl (test code = Chloride Lvl) 116 95-109 [facility] [place] [id number] 01:27:00 Test Item Value Reference Range Interpretation Comments CO2 (test code = CO2) 25 24-32 [place] 853501-08-20 01:27:00 Test Item Value Reference Range Interpretation Comments Calcium Lvl (test code = Calcium Lvl) 8.6 8.5-10.5 [place] 853501-08-20 01:27:00 Test Item Value Reference Range Interpretation Comments Total Protein (test code = Total 6.3 6.4-8.4 Protein) [place] 853501-08-20 01:27:00 Test Item Value Reference Range Interpretation Comments Albumin Lvl (test code = Albumin Lvl) 2.9 3.5-5.0 [place] 853501-08-20 01:27:00 Test Item Value Reference Range Interpretation Comments ALT (test code = ALT) 12 See_Comment [Auto mated message] The system which ge nerated this result transmit sarah reference range : <=65. The reference range was not used to interpr et this result as felicitas l/abnormal. [place] 853501-08-20 01:27:00 Test Item Value Reference Range Interpretation Comments AST (test code = AST) 8 See_Comment [Auto mated message] The system which ge nerated this result transmit sarah reference range : <=37. The reference range was not used to interpr et this result as felicitas l/abnormal. [place] 853501-08-20 01:27:00 Test Item Value Reference Range Interpretation Comments Alk Phos (test code = Alk Phos) 73 39-136 [place] 853501-08-20 01:27:00 Test Item Value Reference Range Interpretation Comments Bili Total (test code = Bili Total) 0.2 0.2-1.3 [place] 853501-08-20 01:27:00 Test Item Value Reference Range Interpretation Comments AGAP (test code = AGAP) 4.5 10.0-20.0 [place] 853501-08-20 01:27:00 Test Item Value Reference Range Interpretation Comments B/C Ratio (test code = B/C Ratio) 18 1 6-25 [place] 853501-08-20 01:27:00 Test Item Value Reference Range Interpretation Comments Globulin (test code = Globulin) 3.4 2.7-4.2 [facility] [id number] 01:27:00 Test Item Value Reference Range Interpretation Comments A/G Ratio (test code = A/G Ratio) 0.9 1 0.7-1.6 [facility] [id number] 01:27:00 Test Item Value Reference Range Interpretation Comments eGFR (test code = eGFR) 91 [facility] [id number] 01:27:00 Test Item Value Reference Range Interpretation Comments Lipase Lvl (test code = Lipase Lvl) 137 73-393 [facility]xx[facility]KTQDPBRVSH2025-65-59 01:27:00 Test Item Value Reference Range Interpretation Comments PT (test code = PT) 16.0 s 12.0-14.7 [id number] 01:27:00 Test Item Value Reference Range Interpretation Comments INR (test code = INR) 1.30 1 0.85-1.17 [facility]borKavtqarRJOCWOTTAY4118-98-72 01:27:00 Test Item Value Reference Range Interpretation Comments PTT (test code = PTT) 22.1 s 22.9-35.8 [facility]ZwlezwiHVXNZAPRWN6361-80-69 01:27:00 Test Item Value Reference Range Interpretation Comments Coronavirus (COVID-19) Not Detected (02/09/21 JAVED (test code = 8:27 PM) Coronavirus (COVID-19) JAVED) [facility] [id number] 01:27:00 Test Item Value Reference Range Interpretation Comments Troponin-I (test code no gt See_Comment [Auto mated message] The = Troponin-I) system which g enerated this result transmit sarah reference range : <=0.40. The reference r arelis was not used to interpr et this result as felicitas l/abnormal. [facility] [id number] 01:27:00 Test Item Value Reference Range Interpretation Comments Glucose Lvl (test code = Glucose Lvl) 102 70-99 [facility]2021-08-20 01:27:00 Test Item Value Reference Range Interpretation Comments BUN (test code = BUN) 12 7-22 [facility] [id number] 01:27:00 Test Item Value Reference Range Interpretation Comments Creatinine Lvl (test code = Creatinine 0.66 0.50-1.40 Lvl) [facility]2021-08-20 01:27:00 Test Item Value Reference Range Interpretation Comments Sodium Lvl (test code = Sodium Lvl) 142 135-145 [facility]2021-08-20 01:27:00 Test Item Value Reference Range Interpretation Comments Potassium Lvl (test code = Potassium 3.5 3.5-5.1 Lvl) [facility]2021-08-20 01:27:00 Test Item Value Reference Range Interpretation Comments Chloride Lvl (test code = Chloride Lvl) 116 95-109 [facility]WhoisCOMMUNITY [id number] 01:27:00 Test Item Value Reference Range Interpretation Comments CO2 (test code = CO2) 25 24-32 [facility]2021-08-20 01:27:00 Test Item Value Reference Range Interpretation Comments Calcium Lvl (test code = Calcium Lvl) 8.6 8.5-10.5 [facility] [id number] 01:27:00 Test Item Value Reference Range Interpretation Comments Troponin-I (test code no gt See_Comment [Auto mated message] The = Troponin-I) system which g enerated this result transmit sarah reference range : <=0.40. The reference r arelis was not used to interpr et this result as felicitas l/abnormal. [facility] CampusStyle[facility] [id number] 01:27:00 Test Item Value Reference Range Interpretation Comments Glucose Lvl (test code = Glucose Lvl) 102 70-99 [facility]2021-08-20 01:27:00 Test Item Value Reference Range Interpretation Comments BUN (test code = BUN) 12 7-22 [facility]2021-08-20 01:27:00 Test Item Value Reference Range Interpretation Comments Creatinine Lvl (test code = Creatinine 0.66 0.50-1.40 Lvl) [facility] [id number] 01:27:00 Test Item Value Reference Range Interpretation Comments Sodium Lvl (test code = Sodium Lvl) 142 135-145 [facility]2021-08-20 01:27:00 Test Item Value Reference Range Interpretation Comments Potassium Lvl (test code = Potassium 3.5 3.5-5.1 Lvl) [place] [address]-08-20 01:27:00 Test Item Value Reference Range Interpretation Comments Chloride Lvl (test code = Chloride Lvl) 116 95-109 [place] [address]-08-20 01:27:00 Test Item Value Reference Range Interpretation Comments CO2 (test code = CO2) 25 24-32 [address]08-20 01:27:00 Test Item Value Reference Range Interpretation Comments Calcium Lvl (test code = Calcium Lvl) 8.6 8.5-10.5 [address]08-20 01:27:00 Test Item Value Reference Range Interpretation Comments Total Protein (test code = Total 6.3 6.4-8.4 Protein) [address]08-20 01:27:00 Test Item Value Reference Range Interpretation Comments Total Protein (test code = Total 6.3 6.4-8.4 Protein) [address]08-20 01:27:00 Test Item Value Reference Range Interpretation Comments Albumin Lvl (test code = Albumin Lvl) 2.9 3.5-5.0 [address]08-20 01:27:00 Test Item Value Reference Range Interpretation Comments ALT (test code = ALT) 12 See_Comment [Auto mated message] The system which ge nerated this result transmit sarah reference range : <=65. The reference range was not used to interpr et this result as felicitas l/abnormal. [address]08-20 01:27:00 Test Item Value Reference Range Interpretation Comments AST (test code = AST) 8 See_Comment [Auto mated message] The system which ge nerated this result transmit sarah reference range : <=37. The reference range was not used to interpr et this result as felicitas l/abnormal. [place] [address]-08-20 01:27:00 Test Item Value Reference Range Interpretation Comments Alk Phos (test code = Alk Phos) 73 39-136 [place] 853501-08-20 01:27:00 Test Item Value Reference Range Interpretation Comments Bili Total (test code = Bili Total) 0.2 0.2-1.3 [place] [address]-08-20 01:27:00 Test Item Value Reference Range Interpretation Comments AGAP (test code = AGAP) 4.5 10.0-20.0 [facility]2021-08-20 01:27:00 Test Item Value Reference Range Interpretation Comments B/C Ratio (test code = B/C Ratio) 18 1 6-25 [place] 853501-08-20 01:27:00 Test Item Value Reference Range Interpretation Comments Globulin (test code = Globulin) 3.4 2.7-4.2 [facility]2021-08-20 01:27:00 Test Item Value Reference Range Interpretation Comments A/G Ratio (test code = A/G Ratio) 0.9 1 0.7-1.6 [place] 853501-08-20 01:27:00 Test Item Value Reference Range Interpretation Comments eGFR (test code = eGFR) 91 [facility]2021-08-20 01:27:00 Test Item Value Reference Range Interpretation Comments Albumin Lvl (test code = Albumin Lvl) 2.9 3.5-5.0 [facility]2021-08-20 01:27:00 Test Item Value Reference Range Interpretation Comments Lipase Lvl (test code = Lipase Lvl) 137 73-393 [facility] Ce[id number] 01:27:00 Test Item Value Reference Range Interpretation Comments PT (test code = PT) 16.0 s 12.0-14.7 [facility] CampusCtpyvbsRWZJXUPYWZ2940-22-79 01:27:00 Test Item Value Reference Range Interpretation Comments INR (test code = INR) 1.30 1 0.85-1.17 [id number] 01:27:00 Test Item Value Reference Range Interpretation Comments PTT (test code = PTT) 22.1 s 22.9-35.8 [facility] CampusPivvlicPHDKGYCNPS4146-84-16 01:27:00 Test Item Value Reference Range Interpretation Comments Coronavirus (COVID-19) Not Detected (02/09/21 JAVED (test code = 8:27 PM) Coronavirus (COVID-19) JAVED) [facility]2021-08-20 01:27:00 Test Item Value Reference Range Interpretation Comments ALT (test code = ALT) 12 See_Comment [Auto mated message] The system which ge nerated this result transmit sarah reference range : <=65. The reference range was not used to interpr et this result as felicitas l/abnormal. [place] 853501-08-20 01:27:00 Test Item Value Reference Range Interpretation Comments AST (test code = AST) 8 See_Comment [Auto mated message] The system which ge nerated this result transmit sarah reference range : <=37. The reference range was not used to interpr et this result as felicitas l/abnormal. [place] 853501-08-20 01:27:00 Test Item Value Reference Range Interpretation Comments Alk Phos (test code = Alk Phos) 73 39-136 [place] 853501-08-20 01:27:00 Test Item Value Reference Range Interpretation Comments Bili Total (test code = Bili Total) 0.2 0.2-1.3 [place] 853501-08-20 01:27:00 Test Item Value Reference Range Interpretation Comments AGAP (test code = AGAP) 4.5 10.0-20.0 [place] 853501-08-20 01:27:00 Test Item Value Reference Range Interpretation Comments B/C Ratio (test code = B/C Ratio) 18 1 6-25 [place] 853501-08-20 01:27:00 Test Item Value Reference Range Interpretation Comments Globulin (test code = Globulin) 3.4 2.7-4.2 [place] 853501-08-20 01:27:00 Test Item Value Reference Range Interpretation Comments A/G Ratio (test code = A/G Ratio) 0.9 1 0.7-1.6 [place] 853501-08-20 01:27:00 Test Item Value Reference Range Interpretation Comments eGFR (test code = eGFR) 91 [place] 853501-08-20 01:27:00 Test Item Value Reference Range Interpretation Comments Lipase Lvl (test code = Lipase Lvl) 137 73-393 [place] 139731-08-20 01:27:00 Test Item Value Reference Range Interpretation Comments PT (test code = PT) 16.0 s 12.0-14.7 [place] 139731-08-20 01:27:00 Test Item Value Reference Range Interpretation Comments INR (test code = INR) 1.30 1 0.85-1.17 [place] 139731-08-20 01:27:00 Test Item Value Reference Range Interpretation Comments PTT (test code = PTT) 22.1 s 22.9-35.8 [facility] CampusPnxktsfMCYDKXDVYE3494-95-48 01:27:00 Test Item Value Reference Range Interpretation Comments Coronavirus (COVID-19) Not Detected (02/09/21 JAVED (test code = 8:27 PM) Coronavirus (COVID-19) JAVED) [facility] [id number] 01:27:00 Test Item Value Reference Range Interpretation Comments Troponin-I (test code no gt See_Comment [Auto mated message] The = Troponin-I) system which g enerated this result transmit sarah reference range : <=0.40. The reference r arelis was not used to interpr et this result as felicitas l/abnormal. [facility] [id number] 01:27:00 Test Item Value Reference Range Interpretation Comments Glucose Lvl (test code = Glucose Lvl) 102 70-99 [facility] [id number] 01:27:00 Test Item Value Reference Range Interpretation Comments BUN (test code = BUN) 12 7-22 [facility]2021-08-20 01:27:00 Test Item Value Reference Range Interpretation Comments Creatinine Lvl (test code = Creatinine 0.66 0.50-1.40 Lvl) [facility] [id number] 01:27:00 Test Item Value Reference Range Interpretation Comments Sodium Lvl (test code = Sodium Lvl) 142 135-145 [facility]2021-08-20 01:27:00 Test Item Value Reference Range Interpretation Comments Potassium Lvl (test code = Potassium 3.5 3.5-5.1 Lvl) [facility]2021-08-20 01:27:00 Test Item Value Reference Range Interpretation Comments Chloride Lvl (test code = Chloride Lvl) 116 95-109 [facility] [id number] 01:27:00 Test Item Value Reference Range Interpretation Comments CO2 (test code = CO2) 25 24-32 [place] 853501-08-20 01:27:00 Test Item Value Reference Range Interpretation Comments Calcium Lvl (test code = Calcium Lvl) 8.6 8.5-10.5 [facility] [id number] 01:27:00 Test Item Value Reference Range Interpretation Comments Total Protein (test code = Total 6.3 6.4-8.4 Protein) [facility] [id number] 01:27:00 Test Item Value Reference Range Interpretation Comments Albumin Lvl (test code = Albumin Lvl) 2.9 3.5-5.0 [facility] [id number] 01:27:00 Test Item Value Reference Range Interpretation Comments ALT (test code = ALT) 12 See_Comment [Auto mated message] The system which ge nerated this result transmit sarah reference range : <=65. The reference range was not used to interpr et this result as felicitas l/abnormal. [facility] [employer] [id number] 01:27:00 Test Item Value Reference Range Interpretation Comments AST (test code = AST) 8 See_Comment [Auto mated message] The system which ge nerated this result transmit sarah reference range : <=37. The reference range was not used to interpr et this result as felicitas l/abnormal. [facility] [employer] [id number] 01:27:00 Test Item Value Reference Range Interpretation Comments Alk Phos (test code = Alk Phos) 73 39-136 [facility] [employer] [id number] 01:27:00 Test Item Value Reference Range Interpretation Comments Bili Total (test code = Bili Total) 0.2 0.2-1.3 [facility] [id number] 01:27:00 Test Item Value Reference Range Interpretation Comments AGAP (test code = AGAP) 4.5 10.0-20.0 [facility] [employer] [id number] 01:27:00 Test Item Value Reference Range Interpretation Comments B/C Ratio (test code = B/C Ratio) 18 1 6-25 [facility] [id number] 01:27:00 Test Item Value Reference Range Interpretation Comments Globulin (test code = Globulin) 3.4 2.7-4.2 [facility] [employer] [id number] 01:27:00 Test Item Value Reference Range Interpretation Comments A/G Ratio (test code = A/G Ratio) 0.9 1 0.7-1.6 [facility] [employer] [id number] 01:27:00 Test Item Value Reference Range Interpretation Comments eGFR (test code = eGFR) 91 [facility]2021-08-20 01:27:00 Test Item Value Reference Range Interpretation Comments Lipase Lvl (test code = Lipase Lvl) 137 73-393 [facility] CentralTxmysmlRNPSAALVKT6771-79-86 01:27:00 Test Item Value Reference Range Interpretation Comments PT (test code = PT) 16.0 s 12.0-14.7 [facility]borOiuwoafJUFDQSTPON4136-01-74 01:27:00 Test Item Value Reference Range Interpretation Comments INR (test code = INR) 1.30 1 0.85-1.17 [facility] [id number] 01:27:00 Test Item Value Reference Range Interpretation Comments PTT (test code = PTT) 22.1 s 22.9-35.8 [facility] CampusAjdjqzuPCMTQJUHQJ4795-55-82 01:27:00 Test Item Value Reference Range Interpretation Comments Coronavirus (COVID-19) Not Detected (02/09/21 JAVED (test code = 8:27 PM) Coronavirus (COVID-19) JAVED) [facility] [id number] 01:27:00 Test Item Value Reference Range Interpretation Comments Troponin-I (test code no gt See_Comment [Auto mated message] The = Troponin-I) system which g enerated this result transmit sarah reference range : <=0.40. The reference r arelis was not used to interpr et this result as felicitas l/abnormal. [facility]2021-08-20 01:27:00 Test Item Value Reference Range Interpretation Comments Glucose Lvl (test code = Glucose Lvl) 102 70-99 [facility]2021-08-20 01:27:00 Test Item Value Reference Range Interpretation Comments BUN (test code = BUN) 12 7-22 [facility]2021-08-20 01:27:00 Test Item Value Reference Range Interpretation Comments Creatinine Lvl (test code = Creatinine 0.66 0.50-1.40 Lvl) [facility]2021-08-20 01:27:00 Test Item Value Reference Range Interpretation Comments Sodium Lvl (test code = Sodium Lvl) 142 135-145 [facility]2021-08-20 01:27:00 Test Item Value Reference Range Interpretation Comments Potassium Lvl (test code = Potassium 3.5 3.5-5.1 Lvl) [facility]WhoisB[facility] [id number] 01:27:00 Test Item Value Reference Range Interpretation Comments Chloride Lvl (test code = Chloride Lvl) 116 95-109 [place] 853501-08-20 01:27:00 Test Item Value Reference Range Interpretation Comments CO2 (test code = CO2) 25 24-32 [place] 853501-08-20 01:27:00 Test Item Value Reference Range Interpretation Comments Calcium Lvl (test code = Calcium Lvl) 8.6 8.5-10.5 [place] 853501-08-20 01:27:00 Test Item Value Reference Range Interpretation Comments Total Protein (test code = Total 6.3 6.4-8.4 Protein) [place] 853501-08-20 01:27:00 Test Item Value Reference Range Interpretation Comments Albumin Lvl (test code = Albumin Lvl) 2.9 3.5-5.0 [facility] [id number] 01:27:00 Test Item Value Reference Range Interpretation Comments ALT (test code = ALT) 12 See_Comment [Auto mated message] The system which ge nerated this result transmit sarah reference range : <=65. The reference range was not used to interpr et this result as felicitas l/abnormal. [facility] [id number] 01:27:00 Test Item Value Reference Range Interpretation Comments AST (test code = AST) 8 See_Comment [Auto mated message] The system which ge nerated this result transmit sarah reference range : <=37. The reference range was not used to interpr et this result as felicitas l/abnormal. [facility] [id number] 01:27:00 Test Item Value Reference Range Interpretation Comments Alk Phos (test code = Alk Phos) 73 39-136 [facility] [id number] 01:27:00 Test Item Value Reference Range Interpretation Comments Bili Total (test code = Bili Total) 0.2 0.2-1.3 [place] 853501-08-20 01:27:00 Test Item Value Reference Range Interpretation Comments AGAP (test code = AGAP) 4.5 10.0-20.0 [facility] [id number] 01:27:00 Test Item Value Reference Range Interpretation Comments B/C Ratio (test code = B/C Ratio) 18 1 6-25 [facility] [id number] 01:27:00 Test Item Value Reference Range Interpretation Comments Globulin (test code = Globulin) 3.4 2.7-4.2 [facility] [id number] 01:27:00 Test Item Value Reference Range Interpretation Comments A/G Ratio (test code = A/G Ratio) 0.9 1 0.7-1.6 [facility] [id number] 01:27:00 Test Item Value Reference Range Interpretation Comments eGFR (test code = eGFR) 91 [facility] [id number] 01:27:00 Test Item Value Reference Range Interpretation Comments Lipase Lvl (test code = Lipase Lvl) 137 73-393 [facility] CentralAnbaurkQWWZIYEDLX8826-59-22 01:27:00 Test Item Value Reference Range Interpretation Comments PT (test code = PT) 16.0 s 12.0-14.7 [facility]borBkvwkkeAGTVVPLYNI2173-03-52 01:27:00 Test Item Value Reference Range Interpretation Comments INR (test code = INR) 1.30 1 0.85-1.17 [facility] [id number] 01:27:00 Test Item Value Reference Range Interpretation Comments PTT (test code = PTT) 22.1 s 22.9-35.8 [facility] CampusMkgsuljEKLIFVWXOT5174-59-82 01:27:00 Test Item Value Reference Range Interpretation Comments Coronavirus (COVID-19) Not Detected (02/09/21 JAVED (test code = 8:27 PM) Coronavirus (COVID-19) JAVED) [facility] [id number] 01:27:00 Test Item Value Reference Range Interpretation Comments Troponin-I (test code no gt See_Comment [Auto mated message] The = Troponin-I) system which g enerated this result transmit sarah reference range : <=0.40. The reference r arelis was not used to interpr et this result as felicitas l/abnormal. [facility]2021-08-20 01:27:00 Test Item Value Reference Range Interpretation Comments Glucose Lvl (test code = Glucose Lvl) 102 70-99 [facility]2021-08-20 01:27:00 Test Item Value Reference Range Interpretation Comments BUN (test code = BUN) 12 7-22 [place] 853501-08-20 01:27:00 Test Item Value Reference Range Interpretation Comments Creatinine Lvl (test code = Creatinine 0.66 0.50-1.40 Lvl) [place] 853501-08-20 01:27:00 Test Item Value Reference Range Interpretation Comments Sodium Lvl (test code = Sodium Lvl) 142 135-145 [facility] [id number] 01:27:00 Test Item Value Reference Range Interpretation Comments Potassium Lvl (test code = Potassium 3.5 3.5-5.1 Lvl) [place] 853501-08-20 01:27:00 Test Item Value Reference Range Interpretation Comments Chloride Lvl (test code = Chloride Lvl) 116 95-109 [facility] [id number] 01:27:00 Test Item Value Reference Range Interpretation Comments CO2 (test code = CO2) 25 24-32 [place] 853501-08-20 01:27:00 Test Item Value Reference Range Interpretation Comments Calcium Lvl (test code = Calcium Lvl) 8.6 8.5-10.5 [facility] [id number] 01:27:00 Test Item Value Reference Range Interpretation Comments Total Protein (test code = Total 6.3 6.4-8.4 Protein) [place] 853501-08-20 01:27:00 Test Item Value Reference Range Interpretation Comments Albumin Lvl (test code = Albumin Lvl) 2.9 3.5-5.0 [facility] [id number] 01:27:00 Test Item Value Reference Range Interpretation Comments ALT (test code = ALT) 12 See_Comment [Auto mated message] The system which ge nerated this result transmit sarah reference range : <=65. The reference range was not used to interpr et this result as felicitas l/abnormal. [facility] [id number] 01:27:00 Test Item Value Reference Range Interpretation Comments AST (test code = AST) 8 See_Comment [Auto mated message] The system which ge nerated this result transmit sarah reference range : <=37. The reference range was not used to interpr et this result as felicitas l/abnormal. [facility] [id number] 01:27:00 Test Item Value Reference Range Interpretation Comments Alk Phos (test code = Alk Phos) 73 39-136 [facility]2021-08-20 01:27:00 Test Item Value Reference Range Interpretation Comments Bili Total (test code = Bili Total) 0.2 0.2-1.3 [facility]2021-08-20 01:27:00 Test Item Value Reference Range Interpretation Comments AGAP (test code = AGAP) 4.5 10.0-20.0 [facility] [id number] 01:27:00 Test Item Value Reference Range Interpretation Comments B/C Ratio (test code = B/C Ratio) 18 1 6-25 [facility] [id number] 01:27:00 Test Item Value Reference Range Interpretation Comments Globulin (test code = Globulin) 3.4 2.7-4.2 [facility] [id number] 01:27:00 Test Item Value Reference Range Interpretation Comments A/G Ratio (test code = A/G Ratio) 0.9 1 0.7-1.6 [facility] [id number] 01:27:00 Test Item Value Reference Range Interpretation Comments eGFR (test code = eGFR) 91 [facility]2021-08-20 01:27:00 Test Item Value Reference Range Interpretation Comments Lipase Lvl (test code = Lipase Lvl) 137 73-393 [id number] 01:27:00 Test Item Value Reference Range Interpretation Comments PT (test code = PT) 16.0 s 12.0-14.7 [facility] HospitalDwrtwyxJKQQLTIEHL4888-01-32 01:27:00 Test Item Value Reference Range Interpretation Comments INR (test code = INR) 1.30 1 0.85-1.17 [facility] H[id number] 01:27:00 Test Item Value Reference Range Interpretation Comments PTT (test code = PTT) 22.1 s 22.9-35.8 [facility] HospitalK[id number] 01:27:00 Test Item Value Reference Range Interpretation Comments Coronavirus (COVID-19) Not Detected (02/09/21 JAVED (test code = 8:27 PM) Coronavirus (COVID-19) JAVED) [facility] [id number] 01:27:00 Test Item Value Reference Range Interpretation Comments Troponin-I (test code no gt See_Comment [Auto mated message] The = Troponin-I) system which g enerated this result transmit sarah reference range : <=0.40. The reference r arelis was not used to interpr et this result as felicitas l/abnormal. [facility] [id number] 01:27:00 Test Item Value Reference Range Interpretation Comments Glucose Lvl (test code = Glucose Lvl) 102 70-99 [facility] [id number] 01:27:00 Test Item Value Reference Range Interpretation Comments BUN (test code = BUN) 12 7-22 [facility] [id number] 01:27:00 Test Item Value Reference Range Interpretation Comments Creatinine Lvl (test code = Creatinine 0.66 0.50-1.40 Lvl) [facility] [id number] 01:27:00 Test Item Value Reference Range Interpretation Comments Sodium Lvl (test code = Sodium Lvl) 142 135-145 [facility] [id number] 01:27:00 Test Item Value Reference Range Interpretation Comments Potassium Lvl (test code = Potassium 3.5 3.5-5.1 Lvl) [facility] [id number] 01:27:00 Test Item Value Reference Range Interpretation Comments Chloride Lvl (test code = Chloride Lvl) 116 95-109 [facility] [id number] 01:27:00 Test Item Value Reference Range Interpretation Comments CO2 (test code = CO2) 25 24-32 [facility] [id number] 01:27:00 Test Item Value Reference Range Interpretation Comments Calcium Lvl (test code = Calcium Lvl) 8.6 8.5-10.5 [facility] [id number] 01:27:00 Test Item Value Reference Range Interpretation Comments Total Protein (test code = Total 6.3 6.4-8.4 Protein) [facility]2021-08-20 01:27:00 Test Item Value Reference Range Interpretation Comments Albumin Lvl (test code = Albumin Lvl) 2.9 3.5-5.0 [facility] [id number] 01:27:00 Test Item Value Reference Range Interpretation Comments ALT (test code = ALT) 12 See_Comment [Auto mated message] The system which ge nerated this result transmit sarah reference range : <=65. The reference range was not used to interpr et this result as felicitas l/abnormal. [place] [address]-08-20 01:27:00 Test Item Value Reference Range Interpretation Comments AST (test code = AST) 8 See_Comment [Auto mated message] The system which ge nerated this result transmit sarah reference range : <=37. The reference range was not used to interpr et this result as felicitas l/abnormal. [place] 853501-08-20 01:27:00 Test Item Value Reference Range Interpretation Comments Alk Phos (test code = Alk Phos) 73 39-136 [place] 853501-08-20 01:27:00 Test Item Value Reference Range Interpretation Comments Bili Total (test code = Bili Total) 0.2 0.2-1.3 [place] 853501-08-20 01:27:00 Test Item Value Reference Range Interpretation Comments AGAP (test code = AGAP) 4.5 10.0-20.0 [place] 853501-08-20 01:27:00 Test Item Value Reference Range Interpretation Comments B/C Ratio (test code = B/C Ratio) 18 1 6-25 [place] [address]-08-20 01:27:00 Test Item Value Reference Range Interpretation Comments Globulin (test code = Globulin) 3.4 2.7-4.2 [facility] [id number] 01:27:00 Test Item Value Reference Range Interpretation Comments A/G Ratio (test code = A/G Ratio) 0.9 1 0.7-1.6 [place] [address]-08-20 01:27:00 Test Item Value Reference Range Interpretation Comments eGFR (test code = eGFR) 91 [place] 853501-08-20 01:27:00 Test Item Value Reference Range Interpretation Comments Lipase Lvl (test code = Lipase Lvl) 137 73-393 [place] 139731-08-20 01:27:00 Test Item Value Reference Range Interpretation Comments PT (test code = PT) 16.0 s 12.0-14.7 [facility] C[id number] 01:27:00 Test Item Value Reference Range Interpretation Comments INR (test code = INR) 1.30 1 0.85-1.17 [facility] [id number] 01:27:00 Test Item Value Reference Range Interpretation Comments PTT (test code = PTT) 22.1 s 22.9-35.8 [facility] C[id number] 01:27:00 Test Item Value Reference Range Interpretation Comments Coronavirus (COVID-19) Not Detected (02/09/21 JAVED (test code = 8:27 PM) Coronavirus (COVID-19) AJVED) [facility] [id number] 01:27:00 Test Item Value Reference Range Interpretation Comments Troponin-I (test code no gt See_Comment [Auto mated message] The = Troponin-I) system which g enerated this result transmit sarah reference range : <=0.40. The reference r arelis was not used to interpr et this result as felicitas l/abnormal. [facility] [id number] 01:27:00 Test Item Value Reference Range Interpretation Comments Glucose Lvl (test code = Glucose Lvl) 102 70-99 [facility] [id number] 01:27:00 Test Item Value Reference Range Interpretation Comments BUN (test code = BUN) 12 7-22 [facility]2021-08-20 01:27:00 Test Item Value Reference Range Interpretation Comments Creatinine Lvl (test code = Creatinine 0.66 0.50-1.40 Lvl) [facility]2021-08-20 01:27:00 Test Item Value Reference Range Interpretation Comments Sodium Lvl (test code = Sodium Lvl) 142 135-145 [facility]2021-08-20 01:27:00 Test Item Value Reference Range Interpretation Comments Potassium Lvl (test code = Potassium 3.5 3.5-5.1 Lvl) [facility]2021-08-20 01:27:00 Test Item Value Reference Range Interpretation Comments Chloride Lvl (test code = Chloride Lvl) 116 95-109 [facility]2021-08-20 01:27:00 Test Item Value Reference Range Interpretation Comments CO2 (test code = CO2) 25 24-32 [facility] [id number] 01:27:00 Test Item Value Reference Range Interpretation Comments Calcium Lvl (test code = Calcium Lvl) 8.6 8.5-10.5 [facility] [id number] 01:27:00 Test Item Value Reference Range Interpretation Comments Total Protein (test code = Total 6.3 6.4-8.4 Protein) [facility] [id number] 01:27:00 Test Item Value Reference Range Interpretation Comments Albumin Lvl (test code = Albumin Lvl) 2.9 3.5-5.0 [facility] [employer] [id number] 01:27:00 Test Item Value Reference Range Interpretation Comments ALT (test code = ALT) 12 See_Comment [Auto mated message] The system which ge nerated this result transmit sarah reference range : <=65. The reference range was not used to interpr et this result as felicitas l/abnormal. [facility] [employer] [id number] 01:27:00 Test Item Value Reference Range Interpretation Comments AST (test code = AST) 8 See_Comment [Auto mated message] The system which ge nerated this result transmit sarah reference range : <=37. The reference range was not used to interpr et this result as felicitas l/abnormal. [facility] [employer] [id number] 01:27:00 Test Item Value Reference Range Interpretation Comments Alk Phos (test code = Alk Phos) 73 39-136 [facility] [employer] [id number] 01:27:00 Test Item Value Reference Range Interpretation Comments Bili Total (test code = Bili Total) 0.2 0.2-1.3 [facility] [employer] [id number] 01:27:00 Test Item Value Reference Range Interpretation Comments AGAP (test code = AGAP) 4.5 10.0-20.0 [facility] [employer] [id number] 01:27:00 Test Item Value Reference Range Interpretation Comments B/C Ratio (test code = B/C Ratio) 18 1 6-25 [facility] [employer] [id number] 01:27:00 Test Item Value Reference Range Interpretation Comments Globulin (test code = Globulin) 3.4 2.7-4.2 [facility] [employer] [id number] 01:27:00 Test Item Value Reference Range Interpretation Comments A/G Ratio (test code = A/G Ratio) 0.9 1 0.7-1.6 [facility] [id number] 01:27:00 Test Item Value Reference Range Interpretation Comments eGFR (test code = eGFR) 91 [facility] [id number] 01:27:00 Test Item Value Reference Range Interpretation Comments Lipase Lvl (test code = Lipase Lvl) 137 73-393 [facility]toq[facility]zyNJVTWBCPFZ7763-55-95 01:27:00 Test Item Value Reference Range Interpretation Comments PT (test code = PT) 16.0 s 12.0-14.7 [id number] 01:27:00 Test Item Value Reference Range Interpretation Comments INR (test code = INR) 1.30 1 0.85-1.17 [facility]L[id number] 01:27:00 Test Item Value Reference Range Interpretation Comments PTT (test code = PTT) 22.1 s 22.9-35.8 [facility] CampusZlzfgkvTQOYRSTJVS3705-26-00 01:27:00 Test Item Value Reference Range Interpretation Comments Coronavirus (COVID-19) Not Detected (02/09/21 JAVED (test code = 8:27 PM) Coronavirus (COVID-19) JAVED) [facility] [id number] 01:27:00 Test Item Value Reference Range Interpretation Comments Troponin-I (test code no gt See_Comment [Auto mated message] The = Troponin-I) system which g enerated this result transmit sarah reference range : <=0.40. The reference r arelis was not used to interpr et this result as felicitas l/abnormal. [facility]2021-08-20 01:27:00 Test Item Value Reference Range Interpretation Comments Glucose Lvl (test code = Glucose Lvl) 102 70-99 [facility]2021-08-20 01:27:00 Test Item Value Reference Range Interpretation Comments BUN (test code = BUN) 12 7-22 [facility]2021-08-20 01:27:00 Test Item Value Reference Range Interpretation Comments Creatinine Lvl (test code = Creatinine 0.66 0.50-1.40 Lvl) [facility]2021-08-20 01:27:00 Test Item Value Reference Range Interpretation Comments Sodium Lvl (test code = Sodium Lvl) 142 135-145 [place] 853501-08-20 01:27:00 Test Item Value Reference Range Interpretation Comments Potassium Lvl (test code = Potassium 3.5 3.5-5.1 Lvl) [place] 853501-08-20 01:27:00 Test Item Value Reference Range Interpretation Comments Chloride Lvl (test code = Chloride Lvl) 116 95-109 [facility] [id number] 01:27:00 Test Item Value Reference Range Interpretation Comments CO2 (test code = CO2) 25 24-32 [place] 853501-08-20 01:27:00 Test Item Value Reference Range Interpretation Comments Calcium Lvl (test code = Calcium Lvl) 8.6 8.5-10.5 [place] 853501-08-20 01:27:00 Test Item Value Reference Range Interpretation Comments Total Protein (test code = Total 6.3 6.4-8.4 Protein) [place] 853501-08-20 01:27:00 Test Item Value Reference Range Interpretation Comments Albumin Lvl (test code = Albumin Lvl) 2.9 3.5-5.0 [facility] [id number] 01:27:00 Test Item Value Reference Range Interpretation Comments ALT (test code = ALT) 12 See_Comment [Auto mated message] The system which ge nerated this result transmit sarah reference range : <=65. The reference range was not used to interpr et this result as felicitas l/abnormal. [facility] [id number] 01:27:00 Test Item Value Reference Range Interpretation Comments AST (test code = AST) 8 See_Comment [Auto mated message] The system which ge nerated this result transmit sarah reference range : <=37. The reference range was not used to interpr et this result as felicitas l/abnormal. [facility] [id number] 01:27:00 Test Item Value Reference Range Interpretation Comments Alk Phos (test code = Alk Phos) 73 39-136 [facility] [id number] 01:27:00 Test Item Value Reference Range Interpretation Comments Bili Total (test code = Bili Total) 0.2 0.2-1.3 [facility]2021-08-20 01:27:00 Test Item Value Reference Range Interpretation Comments AGAP (test code = AGAP) 4.5 10.0-20.0 [facility]2021-08-20 01:27:00 Test Item Value Reference Range Interpretation Comments B/C Ratio (test code = B/C Ratio) 18 1 6-25 [facility] [id number] 01:27:00 Test Item Value Reference Range Interpretation Comments Globulin (test code = Globulin) 3.4 2.7-4.2 [facility]2021-08-20 01:27:00 Test Item Value Reference Range Interpretation Comments A/G Ratio (test code = A/G Ratio) 0.9 1 0.7-1.6 [facility]2021-08-20 01:27:00 Test Item Value Reference Range Interpretation Comments eGFR (test code = eGFR) 91 [facility] [id number] 01:27:00 Test Item Value Reference Range Interpretation Comments Lipase Lvl (test code = Lipase Lvl) 137 73-393 [facility] [id number] 01:27:00 Test Item Value Reference Range Interpretation Comments PT (test code = PT) 16.0 s 12.0-14.7 [id number] 01:27:00 Test Item Value Reference Range Interpretation Comments INR (test code = INR) 1.30 1 0.85-1.17 [id number] 01:27:00 Test Item Value Reference Range Interpretation Comments PTT (test code = PTT) 22.1 s 22.9-35.8 [facility] CampusGcaqoiaAZSFWQJSBE1951-17-12 01:27:00 Test Item Value Reference Range Interpretation Comments Coronavirus (COVID-19) Not Detected (02/09/21 JAVED (test code = 8:27 PM) Coronavirus (COVID-19) JAVED) [facility] [id number] 01:27:00 Test Item Value Reference Range Interpretation Comments Troponin-I (test code no gt See_Comment [Auto mated message] The = Troponin-I) system which g enerated this result transmit sarah reference range : <=0.40. The reference r arelis was not used to interpr et this result as felicitas l/abnormal. [place] 853501-08-20 01:27:00 Test Item Value Reference Range Interpretation Comments Glucose Lvl (test code = Glucose Lvl) 102 70-99 [place] 853501-08-20 01:27:00 Test Item Value Reference Range Interpretation Comments BUN (test code = BUN) 12 7-22 [place] 853501-08-20 01:27:00 Test Item Value Reference Range Interpretation Comments Creatinine Lvl (test code = Creatinine 0.66 0.50-1.40 Lvl) [place] 853501-08-20 01:27:00 Test Item Value Reference Range Interpretation Comments Sodium Lvl (test code = Sodium Lvl) 142 135-145 [place] 853501-08-20 01:27:00 Test Item Value Reference Range Interpretation Comments Potassium Lvl (test code = Potassium 3.5 3.5-5.1 Lvl) [place] 853501-08-20 01:27:00 Test Item Value Reference Range Interpretation Comments Chloride Lvl (test code = Chloride Lvl) 116 95-109 [place] 853501-08-20 01:27:00 Test Item Value Reference Range Interpretation Comments CO2 (test code = CO2) 25 24-32 [place] 853501-08-20 01:27:00 Test Item Value Reference Range Interpretation Comments Calcium Lvl (test code = Calcium Lvl) 8.6 8.5-10.5 [place] 853501-08-20 01:27:00 Test Item Value Reference Range Interpretation Comments Total Protein (test code = Total 6.3 6.4-8.4 Protein) [place] 853501-08-20 01:27:00 Test Item Value Reference Range Interpretation Comments Albumin Lvl (test code = Albumin Lvl) 2.9 3.5-5.0 [place] 853501-08-20 01:27:00 Test Item Value Reference Range Interpretation Comments ALT (test code = ALT) 12 See_Comment [Auto mated message] The system which ge nerated this result transmit sarah reference range : <=65. The reference range was not used to interpr et this result as felicitas l/abnormal. [place] 853501-08-20 01:27:00 Test Item Value Reference Range Interpretation Comments AST (test code = AST) 8 See_Comment [Auto mated message] The system which ge nerated this result transmit sarah reference range : <=37. The reference range was not used to interpr et this result as felicitas l/abnormal. [facility] [id number] 01:27:00 Test Item Value Reference Range Interpretation Comments Alk Phos (test code = Alk Phos) 73 39-136 [facility] [id number] 01:27:00 Test Item Value Reference Range Interpretation Comments Bili Total (test code = Bili Total) 0.2 0.2-1.3 [place] 853501-08-20 01:27:00 Test Item Value Reference Range Interpretation Comments AGAP (test code = AGAP) 4.5 10.0-20.0 [place] 853501-08-20 01:27:00 Test Item Value Reference Range Interpretation Comments B/C Ratio (test code = B/C Ratio) 18 1 6-25 [place] 853501-08-20 01:27:00 Test Item Value Reference Range Interpretation Comments Globulin (test code = Globulin) 3.4 2.7-4.2 [place] 853501-08-20 01:27:00 Test Item Value Reference Range Interpretation Comments A/G Ratio (test code = A/G Ratio) 0.9 1 0.7-1.6 [facility] [id number] 01:27:00 Test Item Value Reference Range Interpretation Comments eGFR (test code = eGFR) 91 [facility] [id number] 01:27:00 Test Item Value Reference Range Interpretation Comments Lipase Lvl (test code = Lipase Lvl) 137 73-393 [place] 139731-08-20 01:27:00 Test Item Value Reference Range Interpretation Comments PT (test code = PT) 16.0 s 12.0-14.7 [place] 139731-08-20 01:27:00 Test Item Value Reference Range Interpretation Comments INR (test code = INR) 1.30 1 0.85-1.17 [place] 139731-08-20 01:27:00 Test Item Value Reference Range Interpretation Comments PTT (test code = PTT) 22.1 s 22.9-35.8 [facility] CampusBndmwjvUUTVJWFSEW1517-19-53 01:27:00 Test Item Value Reference Range Interpretation Comments Coronavirus (COVID-19) Not Detected (02/09/21 JAVED (test code = 8:27 PM) Coronavirus (COVID-19) JAVED) [facility] [id number] 01:27:00 Test Item Value Reference Range Interpretation Comments Troponin-I (test code no gt See_Comment [Auto mated message] The = Troponin-I) system which g enerated this result transmit sarah reference range : <=0.40. The reference r arelis was not used to interpr et this result as felicitas l/abnormal. [facility] [id number] 01:27:00 Test Item Value Reference Range Interpretation Comments Glucose Lvl (test code = Glucose Lvl) 102 70-99 [facility]2021-08-20 01:27:00 Test Item Value Reference Range Interpretation Comments BUN (test code = BUN) 12 7-22 [facility]2021-08-20 01:27:00 Test Item Value Reference Range Interpretation Comments Creatinine Lvl (test code = Creatinine 0.66 0.50-1.40 Lvl) [facility]2021-08-20 01:27:00 Test Item Value Reference Range Interpretation Comments Sodium Lvl (test code = Sodium Lvl) 142 135-145 [facility]2021-08-20 01:27:00 Test Item Value Reference Range Interpretation Comments Potassium Lvl (test code = Potassium 3.5 3.5-5.1 Lvl) [facility]2021-08-20 01:27:00 Test Item Value Reference Range Interpretation Comments Chloride Lvl (test code = Chloride Lvl) 116 95-109 [facility]2021-08-20 01:27:00 Test Item Value Reference Range Interpretation Comments CO2 (test code = CO2) 25 24-32 [facility]2021-08-20 01:27:00 Test Item Value Reference Range Interpretation Comments Calcium Lvl (test code = Calcium Lvl) 8.6 8.5-10.5 [facility]2021-08-20 01:27:00 Test Item Value Reference Range Interpretation Comments Total Protein (test code = Total 6.3 6.4-8.4 Protein) [place] [id number] 01:27:00 Test Item Value Reference Range Interpretation Comments Albumin Lvl (test code = Albumin Lvl) 2.9 3.5-5.0 [place] 853501-08-20 01:27:00 Test Item Value Reference Range Interpretation Comments ALT (test code = ALT) 12 See_Comment [Auto mated message] The system which ge nerated this result transmit sarah reference range : <=65. The reference range was not used to interpr et this result as felicitas l/abnormal. [facility] [id number] 01:27:00 Test Item Value Reference Range Interpretation Comments AST (test code = AST) 8 See_Comment [Auto mated message] The system which ge nerated this result transmit sarah reference range : <=37. The reference range was not used to interpr et this result as felicitas l/abnormal. [facility] [id number] 01:27:00 Test Item Value Reference Range Interpretation Comments Alk Phos (test code = Alk Phos) 73 39-136 [facility] [id number] 01:27:00 Test Item Value Reference Range Interpretation Comments Bili Total (test code = Bili Total) 0.2 0.2-1.3 [facility] [id number] 01:27:00 Test Item Value Reference Range Interpretation Comments AGAP (test code = AGAP) 4.5 10.0-20.0 [facility] [id number] 01:27:00 Test Item Value Reference Range Interpretation Comments B/C Ratio (test code = B/C Ratio) 18 1 6-25 [facility] [id number] 01:27:00 Test Item Value Reference Range Interpretation Comments Globulin (test code = Globulin) 3.4 2.7-4.2 [facility] [id number] 01:27:00 Test Item Value Reference Range Interpretation Comments A/G Ratio (test code = A/G Ratio) 0.9 1 0.7-1.6 [facility] [id number] 01:27:00 Test Item Value Reference Range Interpretation Comments eGFR (test code = eGFR) 91 [facility] [id number] 01:27:00 Test Item Value Reference Range Interpretation Comments Lipase Lvl (test code = Lipase Lvl) 137 73-393 [facility] CampusRsdpcjpQMUMCNBMFB4429-87-76 01:27:00 Test Item Value Reference Range Interpretation Comments PT (test code = PT) 16.0 s 12.0-14.7 [id number] 01:27:00 Test Item Value Reference Range Interpretation Comments INR (test code = INR) 1.30 1 0.85-1.17 [id number] 01:27:00 Test Item Value Reference Range Interpretation Comments PTT (test code = PTT) 22.1 s 22.9-35.8 [facility] CampusEzbcjylQKECMCYZNN8208-28-54 01:27:00 Test Item Value Reference Range Interpretation Comments Coronavirus (COVID-19) Not Detected (02/09/21 JAVED (test code = 8:27 PM) Coronavirus (COVID-19) JAVED) [facility] [id number] 01:27:00 Test Item Value Reference Range Interpretation Comments Troponin-I (test code no gt See_Comment [Auto mated message] The = Troponin-I) system which g enerated this result transmit sarah reference range : <=0.40. The reference r arelis was not used to interpr et this result as felicitas l/abnormal. [facility] [id number] 01:27:00 Test Item Value Reference Range Interpretation Comments Glucose Lvl (test code = Glucose Lvl) 102 70-99 [facility] [id number] 01:27:00 Test Item Value Reference Range Interpretation Comments BUN (test code = BUN) 12 7-22 [facility] [id number] 01:27:00 Test Item Value Reference Range Interpretation Comments Creatinine Lvl (test code = Creatinine 0.66 0.50-1.40 Lvl) [facility] [id number] 01:27:00 Test Item Value Reference Range Interpretation Comments Sodium Lvl (test code = Sodium Lvl) 142 135-145 [facility] [id number] 01:27:00 Test Item Value Reference Range Interpretation Comments Potassium Lvl (test code = Potassium 3.5 3.5-5.1 Lvl) [facility] [id number] 01:27:00 Test Item Value Reference Range Interpretation Comments Chloride Lvl (test code = Chloride Lvl) 116 95-109 [facility] [id number] 01:27:00 Test Item Value Reference Range Interpretation Comments CO2 (test code = CO2) 25 24-32 [facility] [id number] 01:27:00 Test Item Value Reference Range Interpretation Comments Calcium Lvl (test code = Calcium Lvl) 8.6 8.5-10.5 [facility] [id number] 01:27:00 Test Item Value Reference Range Interpretation Comments Total Protein (test code = Total 6.3 6.4-8.4 Protein) [facility] [id number] 01:27:00 Test Item Value Reference Range Interpretation Comments Albumin Lvl (test code = Albumin Lvl) 2.9 3.5-5.0 [facility] [id number] 01:27:00 Test Item Value Reference Range Interpretation Comments ALT (test code = ALT) 12 See_Comment [Auto mated message] The system which ge nerated this result transmit sarah reference range : <=65. The reference range was not used to interpr et this result as felicitas l/abnormal. [facility] [employer] [id number] 01:27:00 Test Item Value Reference Range Interpretation Comments AST (test code = AST) 8 See_Comment [Auto mated message] The system which ge nerated this result transmit sarah reference range : <=37. The reference range was not used to interpr et this result as felicitas l/abnormal. [facility] [employer] [id number] 01:27:00 Test Item Value Reference Range Interpretation Comments Alk Phos (test code = Alk Phos) 73 39-136 [facility] [id number] 01:27:00 Test Item Value Reference Range Interpretation Comments Bili Total (test code = Bili Total) 0.2 0.2-1.3 [facility] [id number] 01:27:00 Test Item Value Reference Range Interpretation Comments AGAP (test code = AGAP) 4.5 10.0-20.0 [facility] [id number] 01:27:00 Test Item Value Reference Range Interpretation Comments B/C Ratio (test code = B/C Ratio) 18 1 6-25 [facility]2021-08-20 01:27:00 Test Item Value Reference Range Interpretation Comments Globulin (test code = Globulin) 3.4 2.7-4.2 [facility]2021-08-20 01:27:00 Test Item Value Reference Range Interpretation Comments A/G Ratio (test code = A/G Ratio) 0.9 1 0.7-1.6 [facility]2021-08-20 01:27:00 Test Item Value Reference Range Interpretation Comments eGFR (test code = eGFR) 91 [facility] [id number] 01:27:00 Test Item Value Reference Range Interpretation Comments Lipase Lvl (test code = Lipase Lvl) 137 73-393 [facility]jxusmKOCXBPPSPQ6130-14-59 01:27:00 Test Item Value Reference Range Interpretation Comments PT (test code = PT) 16.0 s 12.0-14.7 [facility] CentralGiawznjMFETYTUHVX8266-34-37 01:27:00 Test Item Value Reference Range Interpretation Comments INR (test code = INR) 1.30 1 0.85-1.17 [id number] 01:27:00 Test Item Value Reference Range Interpretation Comments PTT (test code = PTT) 22.1 s 22.9-35.8 [facility] CampusPgfpbscUMTGZVDOLF5047-40-08 01:27:00 Test Item Value Reference Range Interpretation Comments Coronavirus (COVID-19) Not Detected (02/09/21 JAVED (test code = 8:27 PM) Coronavirus (COVID-19) JAVED) [facility] [id number] 01:27:00 Test Item Value Reference Range Interpretation Comments Troponin-I (test code no gt See_Comment [Auto mated message] The = Troponin-I) system which g enerated this result transmit sarah reference range : <=0.40. The reference r arelis was not used to interpr et this result as felicitas l/abnormal. [facility]2021-08-20 01:27:00 Test Item Value Reference Range Interpretation Comments Glucose Lvl (test code = Glucose Lvl) 102 70-99 [facility]2021-08-20 01:27:00 Test Item Value Reference Range Interpretation Comments BUN (test code = BUN) 12 7-22 [place] 853501-08-20 01:27:00 Test Item Value Reference Range Interpretation Comments Creatinine Lvl (test code = Creatinine 0.66 0.50-1.40 Lvl) [facility]2021-08-20 01:27:00 Test Item Value Reference Range Interpretation Comments Sodium Lvl (test code = Sodium Lvl) 142 135-145 [facility]2021-08-20 01:27:00 Test Item Value Reference Range Interpretation Comments Potassium Lvl (test code = Potassium 3.5 3.5-5.1 Lvl) [facility]2021-08-20 01:27:00 Test Item Value Reference Range Interpretation Comments Chloride Lvl (test code = Chloride Lvl) 116 95-109 [facility]2021-08-20 01:27:00 Test Item Value Reference Range Interpretation Comments CO2 (test code = CO2) 25 24-32 [facility]2021-08-20 01:27:00 Test Item Value Reference Range Interpretation Comments Calcium Lvl (test code = Calcium Lvl) 8.6 8.5-10.5 [facility] CampusSqblgppVWHMCTUMNL8326-78-63 05:19:27 Test Item Value Reference Range Interpretation Comments APPEARANCE (test code = Clear Clear 0357026342) COLOR (test code = Yellow Yellow 7325132986) PH (test code = 4.8-8.0 6895106777) SP GRAVITY (test code = 1.003-1.030 H 7054898321) GLU U QUAL (test code = Normal Normal 8454465841) BLOOD (test code = Negative Negative 2513133502) KETONES (test code = 5 mg/dL Negative A 5459751974) PROTEIN (test code = Negative Negative 2887-8) UROBILIN (test code = Normal Normal 7540648359) BILIRUBIN (test code = Negative Negative 8410879983) NITRITE (test code = Negative Negative 1532096522) LEUK ALINA (test code = Negative Negative 8339396901) RBC/HPF (test code = See_Comment [Autom ated message] 4882542389) The system Search to Phone generated this result transmitted ref erence range: 0 - 3 HP F. The reference range was not used to int erpret this result as normal/abnormal . WBC/HPF (test code = <1 See_Comment [Autom ated message] 2012100194) The system [employer] generated this result transmitted ref erence range: 0 - 5 HP F. The reference range was not used to int erpret this result as normal/abnormal . BACTERIA (test code = Negative Negative 8276464212) MUCOUS (test code = Slight Negative LPF A 7014695109) SQ EPITH (test code = HPF 4663810134) Lab Interpretation (test Abnormal code = 72594-9) [facility] [id number] 04:16:44 Test Item Value Reference Interpretation Comments Range TROPONIN I (test 0.001 ng/mL See_Comment [Automated code = 4050871461) message] The system which generated this result transmitted reference range : <=0.034. The reference range was not used to interpret this result as normal/abnormal . BRIDGET (test code = Reference (Normal) BRIDGET) Range (defined by the 99th percentile reference limit): <= 0.034 ng/mL Note: Cardiac troponin begins to rise 3-4 hours after the onset of ischemia. Repeat in 4-6 hours if the sample was drawn within 3-4 hours of the onset of the symptom and found normal. Diagnosis of myocardial injury is made with acute changes in cTn concentrations with at least one serial sample above the 99th percentile upper reference limit (URL), taken together with the patient's clinical presentation. Biotin has been reported to cause a negative bias, interpret results relative to patient's use of biotin. Lab Interpretation Normal (test code = 47626-6) [facility] (62926)2021-02-06 04:06:00 Test Item Value Reference Range Interpretation Comments NA (test code = 139 mmol/L 135-145 6134613873) K (test code = 4.1 mmol/L 3.5-5.0 5952669536) CL (test code = 113 mmol/L 98-108 H 9737459081) CO2 TOTAL (test code = 18 mmol/L 23-31 L 5949550571) AGAP (test code = 2-16 3639334257) BUN (test code = 51 mg/dL 7-23 H 8672247327) GLUCOSE (test code = 176 mg/dL 70-110 H 9909558786) CREATININE (test code = 0.81 mg/dL 0.50-1.04 9983773735) TOTAL BILI (test code = 0.3 mg/dL 0.1-1.2 0495514154) CALCIUM (test code = 8.4 mg/dL 8.6-10.6 L 4158990649) T PROTEIN (test code = 5.8 g/dL 6.3-8.2 L 1076906288) ALBUMIN (test code = 3.2 g/dL 3.5-5.0 L 7913841369) ALK PHOS (test code = 58 U/L 34-122 1726800987) ALTv (test code = 11 U/L 5-35 1742-6) AST(SGOT) (test code = 17 U/L 13-40 0359846906) eGFR (test code = mL/min/1.73m2 4993663799) BRIDGET (test code = BRIDGET) Association of Glomerular Filtration Rate (GFR) and Staging of Kidney Disease* + --+ --+ ------+| GFR (mL/min/1.73 m2) ?| With Kidney Damage ?| ?Without Kidney Damage+ --------+ --------+ +| ?>90 ?| ?Stage one ?| ? Normal ?+ ---+ ---+ -------+| ?60-89 ?| ?Stage two ?| ? Decreased GFR ? + --+ --+ ------+| ?30-59 ?| ?Stage three ?| ? Stage three ? + --+ --+ ------+| ?15-29 ?| ?Stage four ? | ? Stage four ?+ ---+ ---+ -------+| ?<15 (or dialysis) ? ?| ?Stage five ? | ? Stage five ?+ ---+ ---+ -------+ *Each stage assumes the associated GFR level has been in effect for at least three months. ?Stages 1 to 5, with or without kidney disease, indicate chronic kidney disease. Notes: Determination of stages one and two (with eGFR >59mL/min/1.73 m2) requires estimation of kidney damage for at least three months as defined by structural or functional abnormalities of the kidney, manifested by either:Pathological abnormalities or Markers of kidney damage (including abnormalities in the composition of the blood or urine or abnormalities in imaging tests). Lab Interpretation Abnormal (test code = 12916-9) [facility] CenterLIP[facility], [id number] 04:05:20 Test Item Value Reference Range Interpretation Comments LIPASE (test code = 5714547176) 48 U/L 0-220 Lab Interpretation (test code = Normal 82231-2) [facility] CenteraPTT2021-[facility] 03:54:39 Test Item Value Reference Range Interpretation Comments APTT Patient (test See_Comment [Automat ed code = 3173-2) message] The system which generated this result transmitted reference range : 23 - 38 Seconds . The reference range was not used to interpr et this result as normal/abnormal . BRIDGET (test code = BRIDGET) The [facility] patient population mean normal value for aPTT is 30 seconds. Lab Interpretation Normal (test code = 94140-5) [facility] CenterPROTHROMBIN TIME / [id number] 03:52:43 Test Item Value Reference Range Interpretation Comments PROTIME PATIENT (test See_Comment H [Auto mated message] code = 5964-2) The system wh ich generated this result transmitted ref erence range: 12.0 - 1 4.7 Seconds. The reference range was not used to int erpret this result as normal/abnormal . INR (test code = 6301-6) Nor mal INR <1.1; Warfarin Therap eutic range 2.0 to 3. 0 or 2.5 to 3.5, dep ending upon the indica tions. Lab Interpretation (test Abnormal code = 66107-9) [facility] CenterCBC WITH [id number] 03:45:20 Test Item Value Reference Range Interpretation Comments WBC (test code = See_Comment H [Automated 7490-2) message] The system which generated this result transmit sarah reference range : 4.30 - 11.10 10*3/?L. The reference range was not used to interpret this result as normal/abnormal . RBC (test code = See_Comment L [Automated 308-8) message] The system which generated this result transmit sarah reference range : 3.93 - 5.25 10*6/?L. The reference range was not used to interpret this result as normal/abnormal . HGB (test code = 8.7 g/dL 11.6-15.0 L 718-7) HCT (test code = 27.8 % 35.7-45.2 L 4544-3) MCV (test code = 88.8 fL 80.6-95.5 787-2) MCH (test code = 27.8 pg 25.9-32.8 785-6) MCHC (test code = 31.3 g/dL 31.6-35.1 L 786-4) RDW-SD (test code = 46.5 fL 39.0-49.9 25036-5) RDW-CV (test code = 14.4 % 12.0-15.5 788-0) PLT (test code = See_Comment H [Automated 777-3) message] The system which generated this result transmit sarah reference range : 166 - 358 10*3/ ?L. The reference range was not u sed to interpret th is result as normal/abnormal . MPV (test code = 10.8 fL 9.5-12.9 26193-8) NRBC/100 WBC (test See_Comment [Automat ed code = 5721430603) message] The system which generated this result transmit sarah reference range : 0.0 - 10.0 /100 WBCs. The reference range was not used to interpret this result as normal/abnormal . NRBC x10^3 (test code <0.01 See_Comment [Auto mated = 7969696138) message] The system which generated this result transmit sarah reference range : 10*3/?L. The reference range was not used to interpret this result as normal/abnormal . GRAN MAT (NEUT) % 82.6 % (test code = 770-8) IMM GRAN % (test code 0.60 % = 7581331583) LYMPH % (test code = 13.2 % 736-9) MONO % (test code = 3.1 % 5905-5) EOS % (test code = 0.1 % 713-8) BASO % (test code = 0.4 % 706-2) GRAN MAT x10^3(ANC) 13.00 10*3/uL 1.88-7.09 H (test code = 7667344506) IMM GRAN x10^3 (test 0.10 10*3/uL 0.00-0.06 H code = 8248324490) LYMPH x10^3 (test code 2.08 10*3/uL 1.32-3.29 = 731-0) MONO x10^3 (test code 0.49 10*3/uL 0.33-0.92 = 742-7) EOS x10^3 (test code = <0.03 0.03-0.39 L 711-2) BASO x10^3 (test code 0.07 10*3/uL 0.01-0.07 = 704-7) Lab Interpretation Abnormal (test code = 22951-0) [facility] Notes Date/Time Note Provider Source 2023-01-29 [facility] 10:17:54-00:00 Patient is here for physical , VSS, medications reconciled, history reviewed. Electronically signed by Ciara Marshall at 2022 10:18 AM CDT 2022-09-18 [facility] 15:36:00-00:00 [facility] ([facility]) Discharge Summary REPORT#:[id number] REPORT STATUS: Signed DATE:09/18/22 TIME: 1536 PATIENT: ZARA QUILES UNIT #: [id number] ROOM/BED: [address] : [address] AGE: 71 SEX: F ATTEND: Noreen Weldon MD ADM AUTHOR: Lisetet Weldon MD * ALL edits or amendments must be made on the el [employer]/computer document * General Information Discharge date: 09/18/22 Discharge diagnosis: L TKA Hospital course: Discharge Diagnosis: Left Knee Degenerative Dise ase Procedure: Left Knee Arthroplasty Hospital Course and Findings The patient underwent the pr ocedure without incident. Findings were significant for degenerative disease of the knee. The patien t was hemodynamically and medically monitored during the postoperative per iod. Anticoagulation was instituted for postoperative DVT prophylaxis. Th e patient was progressively able to tolerate PO pain med ications and the appropriate diet. Physical therapy was instituted, with a progressive ability to am bulate and perform exercises. The patient was eventually deemed stable and saf e for discharge. At discharge, the patient was comfortabl e, with a controlled pain level. There were no chest or abdominal symptoms present. Dis charge physical examination demonstrated stable vital signs and no acute dis tress. The patient had an intact wound with no signifi cant drainage, and no calf tenderness and a negative Yong s sign bilaterally. There were no neurolog ic or vascular deficits or changes from the preoperative state. Disposition: Discharged to home Discharge Condition: Stable Instructions: Instruction sheet given to patient Activity: Ambulate with assistance, with weight- bearing as instructed in the hospital. Diet: As per preoperatively Prescriptions 1. Pain Medications: As per discharge prescription, with progressive weaning as pain decreases 2. Anticoagulation: As per discharge prescription, or PreOp anticoa gulant, as discussed with patient 3. Physical Therapy: Will undergo PT for gait training, mobilization , hiruk-qr-oxjvbl, and strengthening. Patient was i nformed to that they need to arrange for therapy as quickly as possible. The imp ortance of early advancement of iwuzh-ej-esjeaw with home exercises, and physical therapy was stresse d to the patient. Follow-up Appointment: Patient instructe d to arrange appointment for an office visit in 2 weeks Med Rec Med Rec Discharge meds: Continue taking these medications: OXYBUTYNIN (DITROPAN) 5 MG TAB 5 MILLIGRAM ORAL TWICE DAILY. valACYclovir (VALTREX) 500 MG TAB 500 MILLIGRAM ORAL TWICE DAILY. Discharge Instructions PCP )( Discharge to: Home/Self Care Discharge Instructions Additional Discharge Routines: Wound/Dressing Ca re, Add. instructions )( Diet: Regular )( Wound/dressing care: Leave dressing in place )( Additional instructions: None Follow-up Appointments Attending Physician: Attending Physician: Lisette Weldon MD Attending physician follow up timeframe: In 1-2 weeks Electronically Signed by Lisette Weldon MD n 09/18/22 at 1537 RPT #:[id number] END OF REPORT 2022-09-18 [facility] 15:35:00-00:00 [facility] ([facility]) Operative Note REPORT#:[id number] REPORT STATUS: Signed DATE:09/18/22 TIME: 0768 PATIENT: ZARA QUILES UNIT #: [id number] ROOM/BED: [address] : [address] AGE: 71 SEX: F ATTEND: Noreen Weldon MD ADM AUTHOR: Lisette Weldon MD * ALL edits or amendments must be made on the [employer]/computer document * See Addendum Operative Report Operative Note Note: MORGAN Knee Indications for Procedure: She presented to clinic with complaints of left knee pain of increasing severity which failed to respond to conservative measures. She was deemed candidate for total knee replacement. The risks, benefits and alternatives of knee replacement including but not limited to , stroke, heart attack, blood clots, pulmonary embolism, injury to blood vessels and nerves, in fection, revision surgery, failure, fracture and leg alignment changes were explained to the patient in detail and they elected to proceed. Procedure: She was identified in pre-op holding and the lef t knee was marked by myself. She was taken to the block room and spinal and a dductor canal blocks were placed. She was taken to the OR and the left leg was prepped and draped in the standard fashion after time out was performed. Time out c onfirmed site and procedure, antibiotics and TXA. Skin incision was made in th e midline from the tibial tubercle to just proximal to the patella and taken down to the extensor me chanism. Standard medial parapatellar arthrotomy was performed. The knee was extended and standard medial release was performed. The fat pa d was released from the anterior tibia and the patella was everted. The knee was flexed and the ACL was excised. 15 [address] was used to place a lateral retractor through the lateral capsule an d the lateral meniscus was removed. At this point the tibial and femoral pins were p laced for the MORGAN robot. The two tibial pins were placed 4 finger breadths below the tibial tubercle into the anterior tibia and the two f emoral pins were placed within the wound proximal to the medial femoral condyle. The arrays were locked in place for the robotic sensor and the hip center and ankle were registered. The knee was plac ed in flexion and the femur and tibial points were registered. After registration the knee was extended and the gaps were assessed. Releases were done to obtain reasonably symmetric extensi on gap. The implants were adjusted to create approximately 18-20mm medial and lateral extension gaps. The distal femoral and proximal tibial c uts were then completed with the MORGAN. The extension gap was then confirmed to be lashell joselo well. The rotational tensioner was then placed in 90 degrees of flexion and tensioned for a 9mm polyethylene. With the tensioner in place the gaps were assessed with the MORGAN and the implant position of the femur w as adjusted to perfect the flexion gap. The femoral anterior/posteri or and chamfer cuts were then made with the MORGAN saw based on pre- operative sizing. The femur was si zed to be 4. Trial components were placed. The size 4 tibial was confirmed after pre- operative planning with the MORGAN. A 9 mm CR poly was placed followed by a size 4 femoral CR component. The knee was stable throughout range of motion. The knee was extended and the tibial component was mated to the femur and marilu ed for later bone prep on the anterior tibia. The patella tracking was assessed and no latera l release was needed. The trial components were re moved and tibial prep was done using the punch tower and keel punch. Rotation and alignment was confi rmed using a drop fercho. MORGAN confirmed stability throughout rang e of motion and the tibial and femoral pins were removed. Local injection was placed a round the knee joint and the knee was irrigated with normal saline. The final components were then placed us ing press fit. The knee was then again irrigated. The wound was closed with #2 quill, 2.0 Vicryl, 3.0 monocryl and dermabond. A sterile dressing was placed in the OR an d the patient was taken to the PACU in good condition. Electronically Signed by Lisette Weldon MD 09/18/22 at 1536 Addendum 1: 09/18/22 1552 by Lisette Weldon MD 12mm CR Electronically Signed by Lisette Weldon MD 09/18/22 at 1552 [facility] #:[id number] END OF REPORT 2021-05-24 Radiation Dose CTDIVOL = 0 (mGy): DLP = 458.9 (m Gy-cm) [facility] 10:12:00-00:00 Addendum: Bones/joints: Degenerative disc disease L5-S1. T iny Schmorl's node deformities are noted at the superior and inferi or endplates of L2. 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 Stable subcentimet er bone island at the medial left iliac wing. Waqas Soler MD On 05/24/2021 14:58:59; VR-HR [id number] Radiation Dose CTDIVOL = 0 (mGy): DLP = 458.9 ( mGy-cm) PROCEDURE INFORMATION: Exam: CT Abdomen With Contrast Exam date and time: 05/24/2021 12:37 PM Age: 70 years old Clinical indication: Gastro-esophageal reflux di sease without esophagitis; Epigastric pain; Bariatric surgery status; Addit ional info: /r10.13, z98.84, k21.9 TECHNIQUE: Imaging protocol: Computed tomography images of the abdomen with intravenous contrast. Radiation optimization: All CT scans at this facility use at least one of these dose optimization techniques: automated exposure control; mA and/or kV adjustment per patient size (includes targeted e xams where dose is matched to clinical indication); or iterative reconstructio n. Contrast material: OMNI; Contrast volume: 80 ml; Contrast route: INTRAVENOUS (IV); Other contrast: Oral, omni, 50; COMPARISON: ABDOMEN/PELVIS W IV CONTRAST CT 02/09/2021 11:04 PM RADIATION DOSE METRICS: Total DLP (mGy-cm): 458.9 FINDINGS: Tubes, catheters and devices: Left ureteral sten t is noted with the superior pigtail at the left renal pelvis. Lungs: Reticular scarring and/or plate atelectas is at both lung bases. Heart: No cardiomegaly. Diaphragm: Moderate to large hiatal hernia is no sarah associated with air-fluid level. As noted previously, there is asy mmetric wall and rugal fold thickening noted at the ventral aspect of the herniated int rathoracic portion of the stomach (3, 5-11). The location of the EG juncti on is difficult to identify. Liver: Focal fatty infiltration at hepatic segme nt 4b is noted. Mild hepatomegaly. No hepatic mass. Gallbladder and bile ducts: The gallbladder is s urgically absent. There is minimal compensatory dilatation of the extrahepa tic biliary tree. Pancreas: There is mild generalized pancreatic a trophy without mass or ductal dilatation. Spleen: Unremarkable. No splenomegaly. Adrenals: Unremarkable. Kidneys and ureters: Renal c ortical scarring and renal cortical volume loss are present at the kidneys bilat erally. Bilateral extrarenal pelves are noted which is a developmental variant. There is mild nonspe cific smooth wall thickening noted at the left renal pelvis and visualized le ft ureter. Stomach and bowel: Mild stoo l burden at the hepatic flexure, right and proximal transverse colon. The stomach and small bowel ar e otherwise unremarkable. No obstruction. Intraperitoneal space: Unremarkable. No free air . No significant intraperitoneal fluid collection. Lymph nodes: Unremarkable. No enlarged lymph nod es. Vasculature: Unremarkable. No abdominal aortic a neurysm. Reproductive: Left ovarian cyst measuring 3.7 x 2.5 cm. Bones/joints: Unremarkable. No acute osseous abn ormality. Soft tissues: Tiny to small fat filled u mbilical hernia without incarceration. A 4.2 cm transverse abdominal wall defec t in the midline at the supraumbilical ventral abdominal wall is noted conveying fat in to a small hernia sac without incarceration. IMPRESSION: 1. Moderate to large hiatal hernia is noted asso ciated with air-fluid level similar in size to the previous exam. As noted previously, there is asymmetric wall and rugal fold thickening noted at the vent ral aspect of the herniated intrathoracic portion of the stomach (3, 5-11) w hich may represent redundant/collapsed rugal fo lds but is concerning for inflammation or neoplasm. Direct visualization or upper GI examination is recommended. 2. 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 There has been interval placement of a left uret eral stent; the distal stent and pigtail is not imaged. 3. There is mild nonspecific smooth wall thicken ing noted at the left renal pelvis and visualized left ureter which may repr esent nonspecific edema, scarring or an infiltrative process. 4. A 4.2 cm transverse abdominal wall defect in the midline at the supraumbilical ventral abdominal wall is noted c onveying fat into a small hernia sac without incarceration (3, 47). 5. Left ovarian cyst measuring 3.7 x 2.5 cm. Pel bob sonography is recommended for further evaluation. 6. Focal fatty infiltration at hepatic s egment 4b is noted. Mild hepatomegaly. 7. The gallbladder is surgically absent. There i s minimal compensatory dilatation of the extrahepatic biliary tree. 8. Renal cortical scarring and renal cortical vo lume loss are present at the kidneys bilaterally. Waqas Soler MD On 05/24/2021 14:56:43; VR- [id number] 2021-05-24 Radiation Dose CTDIVOL = 0 (mGy): DLP = 458.9 (m Gy-cm) [facility] 10:12:00-00:00 Addendum: Bones/joints: Degenerative disc disease L5-S1. T iny Schmorl's node deformities are noted at the superior and inferi or endplates of L2. 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 Stable subcentimet er bone island at the medial left iliac wing. Waqas Soler MD On 05/24/2021 14:58:59; [facility] [id number] Radiation Dose CTDIVOL = 0 (mGy): DLP = 458.9 ( mGy-cm) PROCEDURE INFORMATION: Exam: CT Abdomen With Contrast Exam date and time: 05/24/2021 12:37 PM Age: 70 years old Clinical indication: Gastro-esophageal reflux di sease without esophagitis; Epigastric pain; Bariatric surgery status; Addit ional info: /r10.13, z98.84, k21.9 TECHNIQUE: Imaging protocol: Computed tomography images of the abdomen with intravenous contrast. Radiation optimization: All CT scans at this facility use at least one of these dose optimization techniques: automated exposure control; mA and/or kV adjustment per patient size (includes targeted e xams where dose is matched to clinical indication); or iterative reconstructio n. Contrast material: OMNI; Contrast volume: 80 ml; Contrast route: INTRAVENOUS (IV); Other contrast: Oral, omni, 50; COMPARISON: ABDOMEN/PELVIS W IV CONTRAST CT 02/09/2021 11:04 PM RADIATION DOSE METRICS: Total DLP (mGy-cm): 458.9 FINDINGS: Tubes, catheters and devices: Left ureteral sten t is noted with the superior pigtail at the left renal pelvis. Lungs: Reticular scarring and/or plate atelectas is at both lung bases. Heart: No cardiomegaly. Diaphragm: Moderate to large hiatal hernia is no sarah associated with air-fluid level. As noted previously, there is asy mmetric wall and rugal fold thickening noted at the ventral aspect of the herniated int rathoracic portion of the stomach (3, 5-11). The location of the EG juncti on is difficult to identify. Liver: Focal fatty infiltration at hepatic segme nt 4b is noted. Mild hepatomegaly. No hepatic mass. Gallbladder and bile ducts: The gallbladder is s urgically absent. There is minimal compensatory dilatation of the extrahepa tic biliary tree. Pancreas: There is mild generalized pancreatic a trophy without mass or ductal dilatation. Spleen: Unremarkable. No splenomegaly. Adrenals: Unremarkable. Kidneys and ureters: Renal c ortical scarring and renal cortical volume loss are present at the kidneys bilat erally. Bilateral extrarenal pelves are noted which is a developmental variant. There is mild nonspe cific smooth wall thickening noted at the left renal pelvis and visualized le ft ureter. Stomach and bowel: Mild stoo l burden at the hepatic flexure, right and proximal transverse colon. The stomach and small bowel ar e otherwise unremarkable. No obstruction. Intraperitoneal space: Unremarkable. No free air . No significant intraperitoneal fluid collection. Lymph nodes: Unremarkable. No enlarged lymph nod es. Vasculature: Unremarkable. No abdominal aortic a neurysm. Reproductive: Left ovarian cyst measuring 3.7 x 2.5 cm. Bones/joints: Unremarkable. No acute osseous abn ormality. Soft tissues: Tiny to small fat filled u mbilical hernia without incarceration. A 4.2 cm transverse abdominal wall defec t in the midline at the supraumbilical ventral abdominal wall is noted conveying fat in to a small hernia sac without incarceration. IMPRESSION: 1. Moderate to large hiatal hernia is noted asso ciated with air-fluid level similar in size to the previous exam. As noted previously, there is asymmetric wall and rugal fold thickening noted at the vent ral aspect of the herniated intrathoracic portion of the stomach (3, 5-11) w hich may represent redundant/collapsed rugal fo lds but is concerning for inflammation or neoplasm. Direct visualization or upper GI examination is recommended. 2. 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 There has been interval placement of a left uret eral stent; the distal stent and pigtail is not imaged. 3. There is mild nonspecific smooth wall thicken ing noted at the left renal pelvis and visualized left ureter which may repr esent nonspecific edema, scarring or an infiltrative process. 4. A 4.2 cm transverse abdominal wall defect in the midline at the supraumbilical ventral abdominal wall is noted c onveying fat into a small hernia sac without incarceration (3, 47). 5. Left ovarian cyst measuring 3.7 x 2.5 cm. Pel bob sonography is recommended for further evaluation. 6. Focal fatty infiltration at hepatic s egment 4b is noted. Mild hepatomegaly. 7. The gallbladder is surgically absent. There i s minimal compensatory dilatation of the extrahepatic biliary tree. 8. Renal cortical scarring and renal cortical vo lume loss are present at the kidneys bilaterally. Waqas Soler MD On 05/24/2021 14:56:43; VR-HR [id number] 2021-05-24 Radiation Dose CTDIVOL = 0 (mGy): DLP = 458.9 (m Gy-cm) [facility] 10:12:00-:00 Addendum: Bones/joints: Degenerative disc disease L5-S1. T iny Schmorl's node deformities are noted at the superior and inferi or endplates of L2. 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 Stable subcentimet er bone island at the medial left iliac wing. Waqas Soler MD On 05/24/2021 14:58:59; VR-HR [id number] Radiation Dose CTDIVOL = 0 (mGy): DLP = 458.9 ( mGy-cm) PROCEDURE INFORMATION: Exam: CT Abdomen With Contrast Exam date and time: 05/24/2021 12:37 PM Age: 70 years old Clinical indication: Gastro-esophageal reflux di sease without esophagitis; Epigastric pain; Bariatric surgery status; Addit ional info: /r10.13, z98.84, k21.9 TECHNIQUE: Imaging protocol: Computed tomography images of the abdomen with intravenous contrast. Radiation optimization: All CT scans at this facility use at least one of these dose optimization techniques: automated exposure control; mA and/or kV adjustment per patient size (includes targeted e xams where dose is matched to clinical indication); or iterative reconstructio n. Contrast material: OMNI; Contrast volume: 80 ml; Contrast route: INTRAVENOUS (IV); Other contrast: Oral, omni, 50; COMPARISON: ABDOMEN/PELVIS W IV CONTRAST CT 02/09/2021 11:04 PM RADIATION DOSE METRICS: Total DLP (mGy-cm): 458.9 FINDINGS: Tubes, catheters and devices: Left ureteral sten t is noted with the superior pigtail at the left renal pelvis. Lungs: Reticular scarring and/or plate atelectas is at both lung bases. Heart: No cardiomegaly. Diaphragm: Moderate to large hiatal hernia is no sarah associated with air-fluid level. As noted previously, there is asy mmetric wall and rugal fold thickening noted at the ventral aspect of the herniated int rathoracic portion of the stomach (3, 5-11). The location of the EG juncti on is difficult to identify. Liver: Focal fatty infiltration at hepatic segme nt 4b is noted. Mild hepatomegaly. No hepatic mass. Gallbladder and bile ducts: The gallbladder is s urgically absent. There is minimal compensatory dilatation of the extrahepa tic biliary tree. Pancreas: There is mild generalized pancreatic a trophy without mass or ductal dilatation. Spleen: Unremarkable. No splenomegaly. Adrenals: Unremarkable. Kidneys and ureters: Renal c ortical scarring and renal cortical volume loss are present at the kidneys bilat erally. Bilateral extrarenal pelves are noted which is a developmental variant. There is mild nonspe cific smooth wall thickening noted at the left renal pelvis and visualized le ft ureter. Stomach and bowel: Mild stoo l burden at the hepatic flexure, right and proximal transverse colon. The stomach and small bowel ar e otherwise unremarkable. No obstruction. Intraperitoneal space: Unremarkable. No free air . No significant intraperitoneal fluid collection. Lymph nodes: Unremarkable. No enlarged lymph nod es. Vasculature: Unremarkable. No abdominal aortic a neurysm. Reproductive: Left ovarian cyst measuring 3.7 x 2.5 cm. Bones/joints: Unremarkable. No acute osseous abn ormality. Soft tissues: Tiny to small fat filled u mbilical hernia without incarceration. A 4.2 cm transverse abdominal wall defec t in the midline at the supraumbilical ventral abdominal wall is noted conveying fat in to a small hernia sac without incarceration. IMPRESSION: 1. Moderate to large hiatal hernia is noted asso ciated with air-fluid level similar in size to the previous exam. As noted previously, there is asymmetric wall and rugal fold thickening noted at the vent ral aspect of the herniated intrathoracic portion of the stomach (3, 5-11) w hich may represent redundant/collapsed rugal fo lds but is concerning for inflammation or neoplasm. Direct visualization or upper GI examination is recommended. 2. 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 There has been interval placement of a left uret eral stent; the distal stent and pigtail is not imaged. 3. There is mild nonspecific smooth wall thicken ing noted at the left renal pelvis and visualized left ureter which may repr esent nonspecific edema, scarring or an infiltrative process. 4. A 4.2 cm transverse abdominal wall defect in the midline at the supraumbilical ventral abdominal wall is noted c onveying fat into a small hernia sac without incarceration (3, 47). 5. Left ovarian cyst measuring 3.7 x 2.5 cm. Pel bob sonography is recommended for further evaluation. 6. Focal fatty infiltration at hepatic s egment 4b is noted. Mild hepatomegaly. 7. The gallbladder is surgically absent. There i s minimal compensatory dilatation of the extrahepatic biliary tree. 8. Renal cortical scarring and renal cortical vo lume loss are present at the kidneys bilaterally. Waqas Soler MD On 05/24/2021 14:56:43; VR-HR [id number] 2021-05-24 Radiation Dose CTDIVOL = 0 (mGy): DLP = 458.9 (m Gy-cm) [facility] 10:12:00-00:00 Addendum: Bones/joints: Degenerative disc disease L5-S1. T iny Schmorl's node deformities are noted at the superior and inferi or endplates of L2. 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 Stable subcentimet er bone island at the medial left iliac wing. Waqas Soler MD On 05/24/2021 14:58:59; VR-HR [id number] Radiation Dose CTDIVOL = 0 (mGy): DLP = 458.9 ( mGy-cm) PROCEDURE INFORMATION: Exam: CT Abdomen With Contrast Exam date and time: 05/24/2021 12:37 PM Age: 70 years old Clinical indication: Gastro-esophageal reflux di sease without esophagitis; Epigastric pain; Bariatric surgery status; Addit ional info: /r10.13, z98.84, k21.9 TECHNIQUE: Imaging protocol: Computed tomography images of the abdomen with intravenous contrast. Radiation optimization: All CT scans at this facility use at least one of these dose optimization techniques: automated exposure control; mA and/or kV adjustment per patient size (includes targeted e xams where dose is matched to clinical indication); or iterative reconstructio n. Contrast material: OMNI; Contrast volume: 80 ml; Contrast route: INTRAVENOUS (IV); Other contrast: Oral, omni, 50; COMPARISON: ABDOMEN/PELVIS W IV CONTRAST CT 02/09/2021 11:04 PM RADIATION DOSE METRICS: Total DLP (mGy-cm): 458.9 FINDINGS: Tubes, catheters and devices: Left ureteral sten t is noted with the superior pigtail at the left renal pelvis. Lungs: Reticular scarring and/or plate atelectas is at both lung bases. Heart: No cardiomegaly. Diaphragm: Moderate to large hiatal hernia is no sarah associated with air-fluid level. As noted previously, there is asy mmetric wall and rugal fold thickening noted at the ventral aspect of the herniated int rathoracic portion of the stomach (3, 5-11). The location of the EG juncti on is difficult to identify. Liver: Focal fatty infiltration at hepatic segme nt 4b is noted. Mild hepatomegaly. No hepatic mass. Gallbladder and bile ducts: The gallbladder is s urgically absent. There is minimal compensatory dilatation of the extrahepa tic biliary tree. Pancreas: There is mild generalized pancreatic a trophy without mass or ductal dilatation. Spleen: Unremarkable. No splenomegaly. Adrenals: Unremarkable. Kidneys and ureters: Renal c ortical scarring and renal cortical volume loss are present at the kidneys bilat erally. Bilateral extrarenal pelves are noted which is a developmental variant. There is mild nonspe cific smooth wall thickening noted at the left renal pelvis and visualized le ft ureter. Stomach and bowel: Mild stoo l burden at the hepatic flexure, right and proximal transverse colon. The stomach and small bowel ar e otherwise unremarkable. No obstruction. Intraperitoneal space: Unremarkable. No free air . No significant intraperitoneal fluid collection. Lymph nodes: Unremarkable. No enlarged lymph nod es. Vasculature: Unremarkable. No abdominal aortic a neurysm. Reproductive: Left ovarian cyst measuring 3.7 x 2.5 cm. Bones/joints: Unremarkable. No acute osseous abn ormality. Soft tissues: Tiny to small fat filled u mbilical hernia without incarceration. A 4.2 cm transverse abdominal wall defec t in the midline at the supraumbilical ventral abdominal wall is noted conveying fat in to a small hernia sac without incarceration. IMPRESSION: 1. Moderate to large hiatal hernia is noted asso ciated with air-fluid level similar in size to the previous exam. As noted previously, there is asymmetric wall and rugal fold thickening noted at the vent ral aspect of the herniated intrathoracic portion of the stomach (3, 5-11) w hich may represent redundant/collapsed rugal fo lds but is concerning for inflammation or neoplasm. Direct visualization or upper GI examination is recommended. 2. 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 There has been interval placement of a left uret eral stent; the distal stent and pigtail is not imaged. 3. There is mild nonspecific smooth wall thicken ing noted at the left renal pelvis and visualized left ureter which may repr esent nonspecific edema, scarring or an infiltrative process. 4. A 4.2 cm transverse abdominal wall defect in the midline at the supraumbilical ventral abdominal wall is noted c onveying fat into a small hernia sac without incarceration (3, 47). 5. Left ovarian cyst measuring 3.7 x 2.5 cm. Pel bob sonography is recommended for further evaluation. 6. Focal fatty infiltration at hepatic s egment 4b is noted. Mild hepatomegaly. 7. The gallbladder is surgically absent. There i s minimal compensatory dilatation of the extrahepatic biliary tree. 8. Renal cortical scarring and renal cortical vo lume loss are present at the kidneys bilaterally. Waqas Soler MD On 05/24/2021 14:56:43; VR-HR [id number] 2021-05-24 Radiation Dose CTDIVOL = 0 (mGy): DLP = 458.9 (m Gy-cm) [facility] 10:12:00-00:00 Addendum: Bones/joints: Degenerative disc disease L5-S1. T iny Schmorl's node deformities are noted at the superior and inferi or endplates of L2. 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 Stable subcentimet er bone island at the medial left iliac wing. Waqas Soler MD On 05/24/2021 14:58:59; VR-HR [id number] Radiation Dose CTDIVOL = 0 (mGy): DLP = 458.9 ( mGy-cm) PROCEDURE INFORMATION: Exam: CT Abdomen With Contrast Exam date and time: 05/24/2021 12:37 PM Age: 70 years old Clinical indication: Gastro-esophageal reflux di sease without esophagitis; Epigastric pain; Bariatric surgery status; Addit ional info: /r10.13, z98.84, k21.9 TECHNIQUE: Imaging protocol: Computed tomography images of the abdomen with intravenous contrast. Radiation optimization: All CT scans at this facility use at least one of these dose optimization techniques: automated exposure control; mA and/or kV adjustment per patient size (includes targeted e xams where dose is matched to clinical indication); or iterative reconstructio n. Contrast material: OMNI; Contrast volume: 80 ml; Contrast route: INTRAVENOUS (IV); Other contrast: Oral, omni, 50; COMPARISON: ABDOMEN/PELVIS W IV CONTRAST CT 02/09/2021 11:04 PM RADIATION DOSE METRICS: Total DLP (mGy-cm): 458.9 FINDINGS: Tubes, catheters and devices: Left ureteral sten t is noted with the superior pigtail at the left renal pelvis. Lungs: Reticular scarring and/or plate atelectas is at both lung bases. Heart: No cardiomegaly. Diaphragm: Moderate to large hiatal hernia is no sarah associated with air-fluid level. As noted previously, there is asy mmetric wall and rugal fold thickening noted at the ventral aspect of the herniated int rathoracic portion of the stomach (3, 5-11). The location of the EG juncti on is difficult to identify. Liver: Focal fatty infiltration at hepatic segme nt 4b is noted. Mild hepatomegaly. No hepatic mass. Gallbladder and bile ducts: The gallbladder is s urgically absent. There is minimal compensatory dilatation of the extrahepa tic biliary tree. Pancreas: There is mild generalized pancreatic a trophy without mass or ductal dilatation. Spleen: Unremarkable. No splenomegaly. Adrenals: Unremarkable. Kidneys and ureters: Renal c ortical scarring and renal cortical volume loss are present at the kidneys bilat erally. Bilateral extrarenal pelves are noted which is a developmental variant. There is mild nonspe cific smooth wall thickening noted at the left renal pelvis and visualized le ft ureter. Stomach and bowel: Mild stoo l burden at the hepatic flexure, right and proximal transverse colon. The stomach and small bowel ar e otherwise unremarkable. No obstruction. Intraperitoneal space: Unremarkable. No free air . No significant intraperitoneal fluid collection. Lymph nodes: Unremarkable. No enlarged lymph nod es. Vasculature: Unremarkable. No abdominal aortic a neurysm. Reproductive: Left ovarian cyst measuring 3.7 x 2.5 cm. Bones/joints: Unremarkable. No acute osseous abn ormality. Soft tissues: Tiny to small fat filled u mbilical hernia without incarceration. A 4.2 cm transverse abdominal wall defec t in the midline at the supraumbilical ventral abdominal wall is noted conveying fat in to a small hernia sac without incarceration. IMPRESSION: 1. Moderate to large hiatal hernia is noted asso ciated with air-fluid level similar in size to the previous exam. As noted previously, there is asymmetric wall and rugal fold thickening noted at the vent ral aspect of the herniated intrathoracic portion of the stomach (3, 5-11) w hich may represent redundant/collapsed rugal fo lds but is concerning for inflammation or neoplasm. Direct visualization or upper GI examination is recommended. 2. 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 There has been interval placement of a left uret eral stent; the distal stent and pigtail is not imaged. 3. There is mild nonspecific smooth wall thicken ing noted at the left renal pelvis and visualized left ureter which may repr esent nonspecific edema, scarring or an infiltrative process. 4. A 4.2 cm transverse abdominal wall defect in the midline at the supraumbilical ventral abdominal wall is noted c onveying fat into a small hernia sac without incarceration (3, 47). 5. Left ovarian cyst measuring 3.7 x 2.5 cm. Pel bob sonography is recommended for further evaluation. 6. Focal fatty infiltration at hepatic s egment 4b is noted. Mild hepatomegaly. 7. The gallbladder is surgically absent. There i s minimal compensatory dilatation of the extrahepatic biliary tree. 8. Renal cortical scarring and renal cortical vo lume loss are present at the kidneys bilaterally. Waqas Soler MD On 05/24/2021 14:56:43; VR-HR [id number] 2021-05-24 Radiation Dose CTDIVOL = 0 (mGy): DLP = 458.9 (m Gy-cm) [facility] 10:12:00-00:00 Addendum: Bones/joints: Degenerative disc disease L5-S1. T iny Schmorl's node deformities are noted at the superior and inferi or endplates of L2. 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 Stable subcentimet er bone island at the medial left iliac wing. Waqas Soler MD On 05/24/2021 14:58:59; VR-HR [id number] Radiation Dose CTDIVOL = 0 (mGy): DLP = 458.9 ( mGy-cm) PROCEDURE INFORMATION: Exam: CT Abdomen With Contrast Exam date and time: 05/24/2021 12:37 PM Age: 70 years old Clinical indication: Gastro-esophageal reflux di sease without esophagitis; Epigastric pain; Bariatric surgery status; Addit ional info: /r10.13, z98.84, k21.9 TECHNIQUE: Imaging protocol: Computed tomography images of the abdomen with intravenous contrast. Radiation optimization: All CT scans at this facility use at least one of these dose optimization techniques: automated exposure control; mA and/or kV adjustment per patient size (includes targeted e xams where dose is matched to clinical indication); or iterative reconstructio n. Contrast material: OMNI; Contrast volume: 80 ml; Contrast route: INTRAVENOUS (IV); Other contrast: Oral, omni, 50; COMPARISON: ABDOMEN/PELVIS W IV CONTRAST CT 02/09/2021 11:04 PM RADIATION DOSE METRICS: Total DLP (mGy-cm): 458.9 FINDINGS: Tubes, catheters and devices: Left ureteral sten t is noted with the superior pigtail at the left renal pelvis. Lungs: Reticular scarring and/or plate atelectas is at both lung bases. Heart: No cardiomegaly. Diaphragm: Moderate to large hiatal hernia is no sarah associated with air-fluid level. As noted previously, there is asy mmetric wall and rugal fold thickening noted at the ventral aspect of the herniated int rathoracic portion of the stomach (3, 5-11). The location of the EG juncti on is difficult to identify. Liver: Focal fatty infiltration at hepatic segme nt 4b is noted. Mild hepatomegaly. No hepatic mass. Gallbladder and bile ducts: The gallbladder is s urgically absent. There is minimal compensatory dilatation of the extrahepa tic biliary tree. Pancreas: There is mild generalized pancreatic a trophy without mass or ductal dilatation. Spleen: Unremarkable. No splenomegaly. Adrenals: Unremarkable. Kidneys and ureters: Renal c ortical scarring and renal cortical volume loss are present at the kidneys bilat erally. Bilateral extrarenal pelves are noted which is a developmental variant. There is mild nonspe cific smooth wall thickening noted at the left renal pelvis and visualized le ft ureter. Stomach and bowel: Mild stoo l burden at the hepatic flexure, right and proximal transverse colon. The stomach and small bowel ar e otherwise unremarkable. No obstruction. Intraperitoneal space: Unremarkable. No free air . No significant intraperitoneal fluid collection. Lymph nodes: Unremarkable. No enlarged lymph nod es. Vasculature: Unremarkable. No abdominal aortic a neurysm. Reproductive: Left ovarian cyst measuring 3.7 x 2.5 cm. Bones/joints: Unremarkable. No acute osseous abn ormality. Soft tissues: Tiny to small fat filled u mbilical hernia without incarceration. A 4.2 cm transverse abdominal wall defec t in the midline at the supraumbilical ventral abdominal wall is noted conveying fat in to a small hernia sac without incarceration. IMPRESSION: 1. Moderate to large hiatal hernia is noted asso ciated with air-fluid level similar in size to the previous exam. As noted previously, there is asymmetric wall and rugal fold thickening noted at the vent ral aspect of the herniated intrathoracic portion of the stomach (3, 5-11) w hich may represent redundant/collapsed rugal fo lds but is concerning for inflammation or neoplasm. Direct visualization or upper GI examination is recommended. 2. 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 There has been interval placement of a left uret eral stent; the distal stent and pigtail is not imaged. 3. There is mild nonspecific smooth wall thicken ing noted at the left renal pelvis and visualized left ureter which may repr esent nonspecific edema, scarring or an infiltrative process. 4. A 4.2 cm transverse abdominal wall defect in the midline at the supraumbilical ventral abdominal wall is noted c onveying fat into a small hernia sac without incarceration (3, 47). 5. Left ovarian cyst measuring 3.7 x 2.5 cm. Pel bob sonography is recommended for further evaluation. 6. Focal fatty infiltration at hepatic s egment 4b is noted. Mild hepatomegaly. 7. The gallbladder is surgically absent. There i s minimal compensatory dilatation of the extrahepatic biliary tree. 8. Renal cortical scarring and renal cortical vo lume loss are present at the kidneys bilaterally. Waqas Soler MD On 05/24/2021 14:56:43; VR- [id number] 2021-05-24 Radiation Dose CTDIVOL = 0 (mGy): DLP = 458.9 (m Gy-cm) [facility] 10:12:00-00:00 Addendum: Bones/joints: Degenerative disc disease L5-S1. T iny Schmorl's node deformities are noted at the superior and inferi or endplates of L2. 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 Stable subcentimet er bone island at the medial left iliac wing. Waqas Soler MD On 05/24/2021 14:58:59; [facility] [id number] Radiation Dose CTDIVOL = 0 (mGy): DLP = 458.9 ( mGy-cm) PROCEDURE INFORMATION: Exam: CT Abdomen With Contrast Exam date and time: 05/24/2021 12:37 PM Age: 70 years old Clinical indication: Gastro-esophageal reflux di sease without esophagitis; Epigastric pain; Bariatric surgery status; Addit ional info: /r10.13, z98.84, k21.9 TECHNIQUE: Imaging protocol: Computed tomography images of the abdomen with intravenous contrast. Radiation optimization: All CT scans at this facility use at least one of these dose optimization techniques: automated exposure control; mA and/or kV adjustment per patient size (includes targeted e xams where dose is matched to clinical indication); or iterative reconstructio n. Contrast material: OMNI; Contrast volume: 80 ml; Contrast route: INTRAVENOUS (IV); Other contrast: Oral, omni, 50; COMPARISON: ABDOMEN/PELVIS W IV CONTRAST CT 02/09/2021 11:04 PM RADIATION DOSE METRICS: Total DLP (mGy-cm): 458.9 FINDINGS: Tubes, catheters and devices: Left ureteral sten t is noted with the superior pigtail at the left renal pelvis. Lungs: Reticular scarring and/or plate atelectas is at both lung bases. Heart: No cardiomegaly. Diaphragm: Moderate to large hiatal hernia is no sarah associated with air-fluid level. As noted previously, there is asy mmetric wall and rugal fold thickening noted at the ventral aspect of the herniated int rathoracic portion of the stomach (3, 5-11). The location of the EG juncti on is difficult to identify. Liver: Focal fatty infiltration at hepatic segme nt 4b is noted. Mild hepatomegaly. No hepatic mass. Gallbladder and bile ducts: The gallbladder is s urgically absent. There is minimal compensatory dilatation of the extrahepa tic biliary tree. Pancreas: There is mild generalized pancreatic a trophy without mass or ductal dilatation. Spleen: Unremarkable. No splenomegaly. Adrenals: Unremarkable. Kidneys and ureters: Renal c ortical scarring and renal cortical volume loss are present at the kidneys bilat erally. Bilateral extrarenal pelves are noted which is a developmental variant. There is mild nonspe cific smooth wall thickening noted at the left renal pelvis and visualized le ft ureter. Stomach and bowel: Mild stoo l burden at the hepatic flexure, right and proximal transverse colon. The stomach and small bowel ar e otherwise unremarkable. No obstruction. Intraperitoneal space: Unremarkable. No free air . No significant intraperitoneal fluid collection. Lymph nodes: Unremarkable. No enlarged lymph nod es. Vasculature: Unremarkable. No abdominal aortic a neurysm. Reproductive: Left ovarian cyst measuring 3.7 x 2.5 cm. Bones/joints: Unremarkable. No acute osseous abn ormality. Soft tissues: Tiny to small fat filled u mbilical hernia without incarceration. A 4.2 cm transverse abdominal wall defec t in the midline at the supraumbilical ventral abdominal wall is noted conveying fat in to a small hernia sac without incarceration. IMPRESSION: 1. Moderate to large hiatal hernia is noted asso ciated with air-fluid level similar in size to the previous exam. As noted previously, there is asymmetric wall and rugal fold thickening noted at the vent ral aspect of the herniated intrathoracic portion of the stomach (3, 5-11) w hich may represent redundant/collapsed rugal fo lds but is concerning for inflammation or neoplasm. Direct visualization or upper GI examination is recommended. 2. 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 There has been interval placement of a left uret eral stent; the distal stent and pigtail is not imaged. 3. There is mild nonspecific smooth wall thicken ing noted at the left renal pelvis and visualized left ureter which may repr esent nonspecific edema, scarring or an infiltrative process. 4. A 4.2 cm transverse abdominal wall defect in the midline at the supraumbilical ventral abdominal wall is noted c onveying fat into a small hernia sac without incarceration (3, 47). 5. Left ovarian cyst measuring 3.7 x 2.5 cm. Pel bob sonography is recommended for further evaluation. 6. Focal fatty infiltration at hepatic s egment 4b is noted. Mild hepatomegaly. 7. The gallbladder is surgically absent. There i s minimal compensatory dilatation of the extrahepatic biliary tree. 8. Renal cortical scarring and renal cortical vo lume loss are present at the kidneys bilaterally. Waqas Soler MD On 05/24/2021 14:56:43; VR-HR [id number] 2021-05-24 Radiation Dose CTDIVOL = 0 (mGy): DLP = 458.9 (m Gy-cm) [facility] 10:12:00-00:00 Addendum: Bones/joints: Degenerative disc disease L5-S1. T iny Schmorl's node deformities are noted at the superior and inferi or endplates of L2. 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 Stable subcentimet er bone island at the medial left iliac wing. Waqas Soler MD On 05/24/2021 14:58:59; VR-HR [id number] Radiation Dose CTDIVOL = 0 (mGy): DLP = 458.9 ( mGy-cm) PROCEDURE INFORMATION: Exam: CT Abdomen With Contrast Exam date and time: 05/24/2021 12:37 PM Age: 70 years old Clinical indication: Gastro-esophageal reflux di sease without esophagitis; Epigastric pain; Bariatric surgery status; Addit ional info: /r10.13, z98.84, k21.9 TECHNIQUE: Imaging protocol: Computed tomography images of the abdomen with intravenous contrast. Radiation optimization: All CT scans at this facility use at least one of these dose optimization techniques: automated exposure control; mA and/or kV adjustment per patient size (includes targeted e xams where dose is matched to clinical indication); or iterative reconstructio n. Contrast material: OMNI; Contrast volume: 80 ml; Contrast route: INTRAVENOUS (IV); Other contrast: Oral, omni, 50; COMPARISON: ABDOMEN/PELVIS W IV CONTRAST CT 02/09/2021 11:04 PM RADIATION DOSE METRICS: Total DLP (mGy-cm): 458.9 FINDINGS: Tubes, catheters and devices: Left ureteral sten t is noted with the superior pigtail at the left renal pelvis. Lungs: Reticular scarring and/or plate atelectas is at both lung bases. Heart: No cardiomegaly. Diaphragm: Moderate to large hiatal hernia is no sarah associated with air-fluid level. As noted previously, there is asy mmetric wall and rugal fold thickening noted at the ventral aspect of the herniated int rathoracic portion of the stomach (3, 5-11). The location of the EG juncti on is difficult to identify. Liver: Focal fatty infiltration at hepatic segme nt 4b is noted. Mild hepatomegaly. No hepatic mass. Gallbladder and bile ducts: The gallbladder is s urgically absent. There is minimal compensatory dilatation of the extrahepa tic biliary tree. Pancreas: There is mild generalized pancreatic a trophy without mass or ductal dilatation. Spleen: Unremarkable. No splenomegaly. Adrenals: Unremarkable. Kidneys and ureters: Renal c ortical scarring and renal cortical volume loss are present at the kidneys bilat erally. Bilateral extrarenal pelves are noted which is a developmental variant. There is mild nonspe cific smooth wall thickening noted at the left renal pelvis and visualized le ft ureter. Stomach and bowel: Mild stoo l burden at the hepatic flexure, right and proximal transverse colon. The stomach and small bowel ar e otherwise unremarkable. No obstruction. Intraperitoneal space: Unremarkable. No free air . No significant intraperitoneal fluid collection. Lymph nodes: Unremarkable. No enlarged lymph nod es. Vasculature: Unremarkable. No abdominal aortic a neurysm. Reproductive: Left ovarian cyst measuring 3.7 x 2.5 cm. Bones/joints: Unremarkable. No acute osseous abn ormality. Soft tissues: Tiny to small fat filled u mbilical hernia without incarceration. A 4.2 cm transverse abdominal wall defec t in the midline at the supraumbilical ventral abdominal wall is noted conveying fat in to a small hernia sac without incarceration. IMPRESSION: 1. Moderate to large hiatal hernia is noted asso ciated with air-fluid level similar in size to the previous exam. As noted previously, there is asymmetric wall and rugal fold thickening noted at the vent ral aspect of the herniated intrathoracic portion of the stomach (3, 5-11) w hich may represent redundant/collapsed rugal fo lds but is concerning for inflammation or neoplasm. Direct visualization or upper GI examination is recommended. 2. 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 There has been interval placement of a left uret eral stent; the distal stent and pigtail is not imaged. 3. There is mild nonspecific smooth wall thicken ing noted at the left renal pelvis and visualized left ureter which may repr esent nonspecific edema, scarring or an infiltrative process. 4. A 4.2 cm transverse abdominal wall defect in the midline at the supraumbilical ventral abdominal wall is noted c onveying fat into a small hernia sac without incarceration (3, 47). 5. Left ovarian cyst measuring 3.7 x 2.5 cm. Pel bob sonography is recommended for further evaluation. 6. Focal fatty infiltration at hepatic s egment 4b is noted. Mild hepatomegaly. 7. The gallbladder is surgically absent. There i s minimal compensatory dilatation of the extrahepatic biliary tree. 8. Renal cortical scarring and renal cortical vo lume loss are present at the kidneys bilaterally. Waqas Soler MD On 05/24/2021 14:56:43; VR-HR [id number] 2021-05-24 Radiation Dose CTDIVOL = 0 (mGy): DLP = 458.9 (m Gy-cm) [facility] 10:12:00-00:00 Addendum: Bones/joints: Degenerative disc disease L5-S1. T iny Schmorl's node deformities are noted at the superior and inferi or endplates of L2. 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 Stable subcentimet er bone island at the medial left iliac wing. Waqas Soler MD On 05/24/2021 14:58:59; VR-HR [id number] Radiation Dose CTDIVOL = 0 (mGy): DLP = 458.9 ( mGy-cm) PROCEDURE INFORMATION: Exam: CT Abdomen With Contrast Exam date and time: 05/24/2021 12:37 PM Age: 70 years old Clinical indication: Gastro-esophageal reflux di sease without esophagitis; Epigastric pain; Bariatric surgery status; Addit ional info: /r10.13, z98.84, k21.9 TECHNIQUE: Imaging protocol: Computed tomography images of the abdomen with intravenous contrast. Radiation optimization: All CT scans at this facility use at least one of these dose optimization techniques: automated exposure control; mA and/or kV adjustment per patient size (includes targeted e xams where dose is matched to clinical indication); or iterative reconstructio n. Contrast material: OMNI; Contrast volume: 80 ml; Contrast route: INTRAVENOUS (IV); Other contrast: Oral, omni, 50; COMPARISON: ABDOMEN/PELVIS W IV CONTRAST CT 02/09/2021 11:04 PM RADIATION DOSE METRICS: Total DLP (mGy-cm): 458.9 FINDINGS: Tubes, catheters and devices: Left ureteral sten t is noted with the superior pigtail at the left renal pelvis. Lungs: Reticular scarring and/or plate atelectas is at both lung bases. Heart: No cardiomegaly. Diaphragm: Moderate to large hiatal hernia is no sarah associated with air-fluid level. As noted previously, there is asy mmetric wall and rugal fold thickening noted at the ventral aspect of the herniated int rathoracic portion of the stomach (3, 5-11). The location of the EG juncti on is difficult to identify. Liver: Focal fatty infiltration at hepatic segme nt 4b is noted. Mild hepatomegaly. No hepatic mass. Gallbladder and bile ducts: The gallbladder is s urgically absent. There is minimal compensatory dilatation of the extrahepa tic biliary tree. Pancreas: There is mild generalized pancreatic a trophy without mass or ductal dilatation. Spleen: Unremarkable. No splenomegaly. Adrenals: Unremarkable. Kidneys and ureters: Renal c ortical scarring and renal cortical volume loss are present at the kidneys bilat erally. Bilateral extrarenal pelves are noted which is a developmental variant. There is mild nonspe cific smooth wall thickening noted at the left renal pelvis and visualized le ft ureter. Stomach and bowel: Mild stoo l burden at the hepatic flexure, right and proximal transverse colon. The stomach and small bowel ar e otherwise unremarkable. No obstruction. Intraperitoneal space: Unremarkable. No free air . No significant intraperitoneal fluid collection. Lymph nodes: Unremarkable. No enlarged lymph nod es. Vasculature: Unremarkable. No abdominal aortic a neurysm. Reproductive: Left ovarian cyst measuring 3.7 x 2.5 cm. Bones/joints: Unremarkable. No acute osseous abn ormality. Soft tissues: Tiny to small fat filled u mbilical hernia without incarceration. A 4.2 cm transverse abdominal wall defec t in the midline at the supraumbilical ventral abdominal wall is noted conveying fat in to a small hernia sac without incarceration. IMPRESSION: 1. Moderate to large hiatal hernia is noted asso ciated with air-fluid level similar in size to the previous exam. As noted previously, there is asymmetric wall and rugal fold thickening noted at the vent ral aspect of the herniated intrathoracic portion of the stomach (3, 5-11) w hich may represent redundant/collapsed rugal fo lds but is concerning for inflammation or neoplasm. Direct visualization or upper GI examination is recommended. 2. 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 There has been interval placement of a left uret eral stent; the distal stent and pigtail is not imaged. 3. There is mild nonspecific smooth wall thicken ing noted at the left renal pelvis and visualized left ureter which may repr esent nonspecific edema, scarring or an infiltrative process. 4. A 4.2 cm transverse abdominal wall defect in the midline at the supraumbilical ventral abdominal wall is noted c onveying fat into a small hernia sac without incarceration (3, 47). 5. Left ovarian cyst measuring 3.7 x 2.5 cm. Pel bob sonography is recommended for further evaluation. 6. Focal fatty infiltration at hepatic s egment 4b is noted. Mild hepatomegaly. 7. The gallbladder is surgically absent. There i s minimal compensatory dilatation of the extrahepatic biliary tree. 8. Renal cortical scarring and renal cortical vo lume loss are present at the kidneys bilaterally. Waqas Soler MD On 05/24/2021 14:56:43; VR-HR [id number] 2021-05-24 Radiation Dose CTDIVOL = 0 (mGy): DLP = 458.9 (m Gy-cm) [facility] 10:12:00-00:00 Addendum: Bones/joints: Degenerative disc disease L5-S1. T iny Schmorl's node deformities are noted at the superior and inferi or endplates of L2. 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 Stable subcentimet er bone island at the medial left iliac wing. Waqas Soler MD On 05/24/2021 14:58:59; VR-HR [id number] Radiation Dose CTDIVOL = 0 (mGy): DLP = 458.9 ( mGy-cm) PROCEDURE INFORMATION: Exam: CT Abdomen With Contrast Exam date and time: 05/24/2021 12:37 PM Age: 70 years old Clinical indication: Gastro-esophageal reflux di sease without esophagitis; Epigastric pain; Bariatric surgery status; Addit ional info: /r10.13, z98.84, k21.9 TECHNIQUE: Imaging protocol: Computed tomography images of the abdomen with intravenous contrast. Radiation optimization: All CT scans at this facility use at least one of these dose optimization techniques: automated exposure control; mA and/or kV adjustment per patient size (includes targeted e xams where dose is matched to clinical indication); or iterative reconstructio n. Contrast material: OMNI; Contrast volume: 80 ml; Contrast route: INTRAVENOUS (IV); Other contrast: Oral, omni, 50; COMPARISON: ABDOMEN/PELVIS W IV CONTRAST CT 02/09/2021 11:04 PM RADIATION DOSE METRICS: Total DLP (mGy-cm): 458.9 FINDINGS: Tubes, catheters and devices: Left ureteral sten t is noted with the superior pigtail at the left renal pelvis. Lungs: Reticular scarring and/or plate atelectas is at both lung bases. Heart: No cardiomegaly. Diaphragm: Moderate to large hiatal hernia is no sarah associated with air-fluid level. As noted previously, there is asy mmetric wall and rugal fold thickening noted at the ventral aspect of the herniated int rathoracic portion of the stomach (3, 5-11). The location of the EG juncti on is difficult to identify. Liver: Focal fatty infiltration at hepatic segme nt 4b is noted. Mild hepatomegaly. No hepatic mass. Gallbladder and bile ducts: The gallbladder is s urgically absent. There is minimal compensatory dilatation of the extrahepa tic biliary tree. Pancreas: There is mild generalized pancreatic a trophy without mass or ductal dilatation. Spleen: Unremarkable. No splenomegaly. Adrenals: Unremarkable. Kidneys and ureters: Renal c ortical scarring and renal cortical volume loss are present at the kidneys bilat erally. Bilateral extrarenal pelves are noted which is a developmental variant. There is mild nonspe cific smooth wall thickening noted at the left renal pelvis and visualized le ft ureter. Stomach and bowel: Mild stoo l burden at the hepatic flexure, right and proximal transverse colon. The stomach and small bowel ar e otherwise unremarkable. No obstruction. Intraperitoneal space: Unremarkable. No free air . No significant intraperitoneal fluid collection. Lymph nodes: Unremarkable. No enlarged lymph nod es. Vasculature: Unremarkable. No abdominal aortic a neurysm. Reproductive: Left ovarian cyst measuring 3.7 x 2.5 cm. Bones/joints: Unremarkable. No acute osseous abn ormality. Soft tissues: Tiny to small fat filled u mbilical hernia without incarceration. A 4.2 cm transverse abdominal wall defec t in the midline at the supraumbilical ventral abdominal wall is noted conveying fat in to a small hernia sac without incarceration. IMPRESSION: 1. Moderate to large hiatal hernia is noted asso ciated with air-fluid level similar in size to the previous exam. As noted previously, there is asymmetric wall and rugal fold thickening noted at the vent ral aspect of the herniated intrathoracic portion of the stomach (3, 5-11) w hich may represent redundant/collapsed rugal fo lds but is concerning for inflammation or neoplasm. Direct visualization or upper GI examination is recommended. 2. 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 There has been interval placement of a left uret eral stent; the distal stent and pigtail is not imaged. 3. There is mild nonspecific smooth wall thicken ing noted at the left renal pelvis and visualized left ureter which may repr esent nonspecific edema, scarring or an infiltrative process. 4. A 4.2 cm transverse abdominal wall defect in the midline at the supraumbilical ventral abdominal wall is noted c onveying fat into a small hernia sac without incarceration (3, 47). 5. Left ovarian cyst measuring 3.7 x 2.5 cm. Pel bob sonography is recommended for further evaluation. 6. Focal fatty infiltration at hepatic s egment 4b is noted. Mild hepatomegaly. 7. The gallbladder is surgically absent. There i s minimal compensatory dilatation of the extrahepatic biliary tree. 8. Renal cortical scarring and renal cortical vo lume loss are present at the kidneys bilaterally. Waqas Soler MD On 05/24/2021 14:56:43; VR-HR [id number] 2021-05-24 Radiation Dose CTDIVOL = 0 (mGy): DLP = 458.9 (m Gy-cm) [facility] 10:12:00-:00 Addendum: Bones/joints: Degenerative disc disease L5-S1. T iny Schmorl's node deformities are noted at the superior and inferi or endplates of L2. 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 Stable subcentimet er bone island at the medial left iliac wing. Waqas Soler MD On 05/24/2021 14:58:59; VR-HR [id number] Radiation Dose CTDIVOL = 0 (mGy): DLP = 458.9 ( mGy-cm) PROCEDURE INFORMATION: Exam: CT Abdomen With Contrast Exam date and time: 05/24/2021 12:37 PM Age: 70 years old Clinical indication: Gastro-esophageal reflux di sease without esophagitis; Epigastric pain; Bariatric surgery status; Addit ional info: /r10.13, z98.84, k21.9 TECHNIQUE: Imaging protocol: Computed tomography images of the abdomen with intravenous contrast. Radiation optimization: All CT scans at this facility use at least one of these dose optimization techniques: automated exposure control; mA and/or kV adjustment per patient size (includes targeted e xams where dose is matched to clinical indication); or iterative reconstructio n. Contrast material: OMNI; Contrast volume: 80 ml; Contrast route: INTRAVENOUS (IV); Other contrast: Oral, omni, 50; COMPARISON: ABDOMEN/PELVIS W IV CONTRAST CT 02/09/2021 11:04 PM RADIATION DOSE METRICS: Total DLP (mGy-cm): 458.9 FINDINGS: Tubes, catheters and devices: Left ureteral sten t is noted with the superior pigtail at the left renal pelvis. Lungs: Reticular scarring and/or plate atelectas is at both lung bases. Heart: No cardiomegaly. Diaphragm: Moderate to large hiatal hernia is no sarah associated with air-fluid level. As noted previously, there is asy mmetric wall and rugal fold thickening noted at the ventral aspect of the herniated int rathoracic portion of the stomach (3, 5-11). The location of the EG juncti on is difficult to identify. Liver: Focal fatty infiltration at hepatic segme nt 4b is noted. Mild hepatomegaly. No hepatic mass. Gallbladder and bile ducts: The gallbladder is s urgically absent. There is minimal compensatory dilatation of the extrahepa tic biliary tree. Pancreas: There is mild generalized pancreatic a trophy without mass or ductal dilatation. Spleen: Unremarkable. No splenomegaly. Adrenals: Unremarkable. Kidneys and ureters: Renal c ortical scarring and renal cortical volume loss are present at the kidneys bilat erally. Bilateral extrarenal pelves are noted which is a developmental variant. There is mild nonspe cific smooth wall thickening noted at the left renal pelvis and visualized le ft ureter. Stomach and bowel: Mild stoo l burden at the hepatic flexure, right and proximal transverse colon. The stomach and small bowel ar e otherwise unremarkable. No obstruction. Intraperitoneal space: Unremarkable. No free air . No significant intraperitoneal fluid collection. Lymph nodes: Unremarkable. No enlarged lymph nod es. Vasculature: Unremarkable. No abdominal aortic a neurysm. Reproductive: Left ovarian cyst measuring 3.7 x 2.5 cm. Bones/joints: Unremarkable. No acute osseous abn ormality. Soft tissues: Tiny to small fat filled u mbilical hernia without incarceration. A 4.2 cm transverse abdominal wall defec t in the midline at the supraumbilical ventral abdominal wall is noted conveying fat in to a small hernia sac without incarceration. IMPRESSION: 1. Moderate to large hiatal hernia is noted asso ciated with air-fluid level similar in size to the previous exam. As noted previously, there is asymmetric wall and rugal fold thickening noted at the vent ral aspect of the herniated intrathoracic portion of the stomach (3, 5-11) w hich may represent redundant/collapsed rugal fo lds but is concerning for inflammation or neoplasm. Direct visualization or upper GI examination is recommended. 2. 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 There has been interval placement of a left uret eral stent; the distal stent and pigtail is not imaged. 3. There is mild nonspecific smooth wall thicken ing noted at the left renal pelvis and visualized left ureter which may repr esent nonspecific edema, scarring or an infiltrative process. 4. A 4.2 cm transverse abdominal wall defect in the midline at the supraumbilical ventral abdominal wall is noted c onveying fat into a small hernia sac without incarceration (3, 47). 5. Left ovarian cyst measuring 3.7 x 2.5 cm. Pel bob sonography is recommended for further evaluation. 6. Focal fatty infiltration at hepatic s egment 4b is noted. Mild hepatomegaly. 7. The gallbladder is surgically absent. There i s minimal compensatory dilatation of the extrahepatic biliary tree. 8. Renal cortical scarring and renal cortical vo lume loss are present at the kidneys bilaterally. Waqas Soler MD On 05/24/2021 14:56:43; VR-HR [id number] 2021-05-24 Radiation Dose CTDIVOL = 0 (mGy): DLP = 458.9 (m Gy-cm) [facility] 10:12:00-00:00 Addendum: Bones/joints: Degenerative disc disease L5-S1. T iny Schmorl's node deformities are noted at the superior and inferi or endplates of L2. 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 Stable subcentimet er bone island at the medial left iliac wing. Waqas Soler MD On 05/24/2021 14:58:59; - [id number] Radiation Dose CTDIVOL = 0 (mGy): DLP = 458.9 ( mGy-cm) PROCEDURE INFORMATION: Exam: CT Abdomen With Contrast Exam date and time: 05/24/2021 12:37 PM Age: 70 years old Clinical indication: Gastro-esophageal reflux di sease without esophagitis; Epigastric pain; Bariatric surgery status; Addit ional info: /r10.13, z98.84, k21.9 TECHNIQUE: Imaging protocol: Computed tomography images of the abdomen with intravenous contrast. Radiation optimization: All CT scans at this facility use at least one of these dose optimization techniques: automated exposure control; mA and/or kV adjustment per patient size (includes targeted e xams where dose is matched to clinical indication); or iterative reconstructio n. Contrast material: OMNI; Contrast volume: 80 ml; Contrast route: INTRAVENOUS (IV); Other contrast: Oral, omni, 50; COMPARISON: ABDOMEN/PELVIS W IV CONTRAST CT 02/09/2021 11:04 PM RADIATION DOSE METRICS: Total DLP (mGy-cm): 458.9 FINDINGS: Tubes, catheters and devices: Left ureteral sten t is noted with the superior pigtail at the left renal pelvis. Lungs: Reticular scarring and/or plate atelectas is at both lung bases. Heart: No cardiomegaly. Diaphragm: Moderate to large hiatal hernia is no sarah associated with air-fluid level. As noted previously, there is asy mmetric wall and rugal fold thickening noted at the ventral aspect of the herniated int rathoracic portion of the stomach (3, 5-11). The location of the EG juncti on is difficult to identify. Liver: Focal fatty infiltration at hepatic segme nt 4b is noted. Mild hepatomegaly. No hepatic mass. Gallbladder and bile ducts: The gallbladder is s urgically absent. There is minimal compensatory dilatation of the extrahepa tic biliary tree. Pancreas: There is mild generalized pancreatic a trophy without mass or ductal dilatation. Spleen: Unremarkable. No splenomegaly. Adrenals: Unremarkable. Kidneys and ureters: Renal c ortical scarring and renal cortical volume loss are present at the kidneys bilat erally. Bilateral extrarenal pelves are noted which is a developmental variant. There is mild nonspe cific smooth wall thickening noted at the left renal pelvis and visualized le ft ureter. Stomach and bowel: Mild stoo l burden at the hepatic flexure, right and proximal transverse colon. The stomach and small bowel ar e otherwise unremarkable. No obstruction. Intraperitoneal space: Unremarkable. No free air . No significant intraperitoneal fluid collection. Lymph nodes: Unremarkable. No enlarged lymph nod es. Vasculature: Unremarkable. No abdominal aortic a neurysm. Reproductive: Left ovarian cyst measuring 3.7 x 2.5 cm. Bones/joints: Unremarkable. No acute osseous abn ormality. Soft tissues: Tiny to small fat filled u mbilical hernia without incarceration. A 4.2 cm transverse abdominal wall defec t in the midline at the supraumbilical ventral abdominal wall is noted conveying fat in to a small hernia sac without incarceration. IMPRESSION: 1. Moderate to large hiatal hernia is noted asso ciated with air-fluid level similar in size to the previous exam. As noted previously, there is asymmetric wall and rugal fold thickening noted at the vent ral aspect of the herniated intrathoracic portion of the stomach (3, 5-11) w hich may represent redundant/collapsed rugal fo lds but is concerning for inflammation or neoplasm. Direct visualization or upper GI examination is recommended. 2. 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 There has been interval placement of a left uret eral stent; the distal stent and pigtail is not imaged. 3. There is mild nonspecific smooth wall thicken ing noted at the left renal pelvis and visualized left ureter which may repr esent nonspecific edema, scarring or an infiltrative process. 4. A 4.2 cm transverse abdominal wall defect in the midline at the supraumbilical ventral abdominal wall is noted c onveying fat into a small hernia sac without incarceration (3, 47). 5. Left ovarian cyst measuring 3.7 x 2.5 cm. Pel bob sonography is recommended for further evaluation. 6. Focal fatty infiltration at hepatic s egment 4b is noted. Mild hepatomegaly. 7. The gallbladder is surgically absent. There i s minimal compensatory dilatation of the extrahepatic biliary tree. 8. Renal cortical scarring and renal cortical vo lume loss are present at the kidneys bilaterally. Waqas Soler MD On 05/24/2021 14:56:43; VR-HR [id number] 2021-05-24 Radiation Dose CTDIVOL = 0 (mGy): DLP = 458.9 (m Gy-cm) [facility] 10:12:00-00:00 Addendum: Bones/joints: Degenerative disc disease L5-S1. T iny Schmorl's node deformities are noted at the superior and inferi or endplates of L2. 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 Stable subcentimet er bone island at the medial left iliac wing. Waqas Soler MD On 05/24/2021 14:58:59; VR-HR [id number] Radiation Dose CTDIVOL = 0 (mGy): DLP = 458.9 ( mGy-cm) PROCEDURE INFORMATION: Exam: CT Abdomen With Contrast Exam date and time: 05/24/2021 12:37 PM Age: 70 years old Clinical indication: Gastro-esophageal reflux di sease without esophagitis; Epigastric pain; Bariatric surgery status; Addit ional info: /r10.13, z98.84, k21.9 TECHNIQUE: Imaging protocol: Computed tomography images of the abdomen with intravenous contrast. Radiation optimization: All CT scans at this facility use at least one of these dose optimization techniques: automated exposure control; mA and/or kV adjustment per patient size (includes targeted e xams where dose is matched to clinical indication); or iterative reconstructio n. Contrast material: OMNI; Contrast volume: 80 ml; Contrast route: INTRAVENOUS (IV); Other contrast: Oral, omni, 50; COMPARISON: ABDOMEN/PELVIS W IV CONTRAST CT 02/09/2021 11:04 PM RADIATION DOSE METRICS: Total DLP (mGy-cm): 458.9 FINDINGS: Tubes, catheters and devices: Left ureteral sten t is noted with the superior pigtail at the left renal pelvis. Lungs: Reticular scarring and/or plate atelectas is at both lung bases. Heart: No cardiomegaly. Diaphragm: Moderate to large hiatal hernia is no sarah associated with air-fluid level. As noted previously, there is asy mmetric wall and rugal fold thickening noted at the ventral aspect of the herniated int rathoracic portion of the stomach (3, 5-11). The location of the EG juncti on is difficult to identify. Liver: Focal fatty infiltration at hepatic segme nt 4b is noted. Mild hepatomegaly. No hepatic mass. Gallbladder and bile ducts: The gallbladder is s urgically absent. There is minimal compensatory dilatation of the extrahepa tic biliary tree. Pancreas: There is mild generalized pancreatic a trophy without mass or ductal dilatation. Spleen: Unremarkable. No splenomegaly. Adrenals: Unremarkable. Kidneys and ureters: Renal c ortical scarring and renal cortical volume loss are present at the kidneys bilat erally. Bilateral extrarenal pelves are noted which is a developmental variant. There is mild nonspe cific smooth wall thickening noted at the left renal pelvis and visualized le ft ureter. Stomach and bowel: Mild stoo l burden at the hepatic flexure, right and proximal transverse colon. The stomach and small bowel ar e otherwise unremarkable. No obstruction. Intraperitoneal space: Unremarkable. No free air . No significant intraperitoneal fluid collection. Lymph nodes: Unremarkable. No enlarged lymph nod es. Vasculature: Unremarkable. No abdominal aortic a neurysm. Reproductive: Left ovarian cyst measuring 3.7 x 2.5 cm. Bones/joints: Unremarkable. No acute osseous abn ormality. Soft tissues: Tiny to small fat filled u mbilical hernia without incarceration. A 4.2 cm transverse abdominal wall defec t in the midline at the supraumbilical ventral abdominal wall is noted conveying fat in to a small hernia sac without incarceration. IMPRESSION: 1. Moderate to large hiatal hernia is noted asso ciated with air-fluid level similar in size to the previous exam. As noted previously, there is asymmetric wall and rugal fold thickening noted at the vent ral aspect of the herniated intrathoracic portion of the stomach (3, 5-11) w hich may represent redundant/collapsed rugal fo lds but is concerning for inflammation or neoplasm. Direct visualization or upper GI examination is recommended. 2. 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 There has been interval placement of a left uret eral stent; the distal stent and pigtail is not imaged. 3. There is mild nonspecific smooth wall thicken ing noted at the left renal pelvis and visualized left ureter which may repr esent nonspecific edema, scarring or an infiltrative process. 4. A 4.2 cm transverse abdominal wall defect in the midline at the supraumbilical ventral abdominal wall is noted c onveying fat into a small hernia sac without incarceration (3, 47). 5. Left ovarian cyst measuring 3.7 x 2.5 cm. Pel bob sonography is recommended for further evaluation. 6. Focal fatty infiltration at hepatic s egment 4b is noted. Mild hepatomegaly. 7. The gallbladder is surgically absent. There i s minimal compensatory dilatation of the extrahepatic biliary tree. 8. Renal cortical scarring and renal cortical vo lume loss are present at the kidneys bilaterally. Waqas Soler MD On 05/24/2021 14:56:43; VR-HR [id number] 2021-05-24 Radiation Dose CTDIVOL = 0 (mGy): DLP = 458.9 (m Gy-cm) [facility] 10:12:00-00:00 Addendum: Bones/joints: Degenerative disc disease L5-S1. T iny Schmorl's node deformities are noted at the superior and inferi or endplates of L2. 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 Stable subcentimet er bone island at the medial left iliac wing. Waqas Soler MD On 05/24/2021 14:58:59; VR-HR [id number] Radiation Dose CTDIVOL = 0 (mGy): DLP = 458.9 ( mGy-cm) PROCEDURE INFORMATION: Exam: CT Abdomen With Contrast Exam date and time: 05/24/2021 12:37 PM Age: 70 years old Clinical indication: Gastro-esophageal reflux di sease without esophagitis; Epigastric pain; Bariatric surgery status; Addit ional info: /r10.13, z98.84, k21.9 TECHNIQUE: Imaging protocol: Computed tomography images of the abdomen with intravenous contrast. Radiation optimization: All CT scans at this facility use at least one of these dose optimization techniques: automated exposure control; mA and/or kV adjustment per patient size (includes targeted e xams where dose is matched to clinical indication); or iterative reconstructio n. Contrast material: OMNI; Contrast volume: 80 ml; Contrast route: INTRAVENOUS (IV); Other contrast: Oral, omni, 50; COMPARISON: ABDOMEN/PELVIS W IV CONTRAST CT 02/09/2021 11:04 PM RADIATION DOSE METRICS: Total DLP (mGy-cm): 458.9 FINDINGS: Tubes, catheters and devices: Left ureteral sten t is noted with the superior pigtail at the left renal pelvis. Lungs: Reticular scarring and/or plate atelectas is at both lung bases. Heart: No cardiomegaly. Diaphragm: Moderate to large hiatal hernia is no sarah associated with air-fluid level. As noted previously, there is asy mmetric wall and rugal fold thickening noted at the ventral aspect of the herniated int rathoracic portion of the stomach (3, 5-11). The location of the EG juncti on is difficult to identify. Liver: Focal fatty infiltration at hepatic segme nt 4b is noted. Mild hepatomegaly. No hepatic mass. Gallbladder and bile ducts: The gallbladder is s urgically absent. There is minimal compensatory dilatation of the extrahepa tic biliary tree. Pancreas: There is mild generalized pancreatic a trophy without mass or ductal dilatation. Spleen: Unremarkable. No splenomegaly. Adrenals: Unremarkable. Kidneys and ureters: Renal c ortical scarring and renal cortical volume loss are present at the kidneys bilat erally. Bilateral extrarenal pelves are noted which is a developmental variant. There is mild nonspe cific smooth wall thickening noted at the left renal pelvis and visualized le ft ureter. Stomach and bowel: Mild stoo l burden at the hepatic flexure, right and proximal transverse colon. The stomach and small bowel ar e otherwise unremarkable. No obstruction. Intraperitoneal space: Unremarkable. No free air . No significant intraperitoneal fluid collection. Lymph nodes: Unremarkable. No enlarged lymph nod es. Vasculature: Unremarkable. No abdominal aortic a neurysm. Reproductive: Left ovarian cyst measuring 3.7 x 2.5 cm. Bones/joints: Unremarkable. No acute osseous abn ormality. Soft tissues: Tiny to small fat filled u mbilical hernia without incarceration. A 4.2 cm transverse abdominal wall defec t in the midline at the supraumbilical ventral abdominal wall is noted conveying fat in to a small hernia sac without incarceration. IMPRESSION: 1. Moderate to large hiatal hernia is noted asso ciated with air-fluid level similar in size to the previous exam. As noted previously, there is asymmetric wall and rugal fold thickening noted at the vent ral aspect of the herniated intrathoracic portion of the stomach (3, 5-11) w hich may represent redundant/collapsed rugal fo lds but is concerning for inflammation or neoplasm. Direct visualization or upper GI examination is recommended. 2. 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 There has been interval placement of a left uret eral stent; the distal stent and pigtail is not imaged. 3. There is mild nonspecific smooth wall thicken ing noted at the left renal pelvis and visualized left ureter which may repr esent nonspecific edema, scarring or an infiltrative process. 4. A 4.2 cm transverse abdominal wall defect in the midline at the supraumbilical ventral abdominal wall is noted c onveying fat into a small hernia sac without incarceration (3, 47). 5. Left ovarian cyst measuring 3.7 x 2.5 cm. Pel bob sonography is recommended for further evaluation. 6. Focal fatty infiltration at hepatic s egment 4b is noted. Mild hepatomegaly. 7. The gallbladder is surgically absent. There i s minimal compensatory dilatation of the extrahepatic biliary tree. 8. Renal cortical scarring and renal cortical vo lume loss are present at the kidneys bilaterally. Waqas Soler MD On 05/24/2021 14:56:43; VR-HR [id number] 2021-05-24 Radiation Dose CTDIVOL = 0 (mGy): DLP = 458.9 (m Gy-cm) [facility] 10:12:00-00:00 Addendum: Bones/joints: Degenerative disc disease L5-S1. T iny Schmorl's node deformities are noted at the superior and inferi or endplates of L2. 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 Stable subcentimet er bone island at the medial left iliac wing. Waqas Soler MD On 05/24/2021 14:58:59; -HR [id number] Radiation Dose CTDIVOL = 0 (mGy): DLP = 458.9 ( mGy-cm) PROCEDURE INFORMATION: Exam: CT Abdomen With Contrast Exam date and time: 05/24/2021 12:37 PM Age: 70 years old Clinical indication: Gastro-esophageal reflux di sease without esophagitis; Epigastric pain; Bariatric surgery status; Addit ional info: /r10.13, z98.84, k21.9 TECHNIQUE: Imaging protocol: Computed tomography images of the abdomen with intravenous contrast. Radiation optimization: All CT scans at this facility use at least one of these dose optimization techniques: automated exposure control; mA and/or kV adjustment per patient size (includes targeted e xams where dose is matched to clinical indication); or iterative reconstructio n. Contrast material: OMNI; Contrast volume: 80 ml; Contrast route: INTRAVENOUS (IV); Other contrast: Oral, omni, 50; COMPARISON: ABDOMEN/PELVIS W IV CONTRAST CT 02/09/2021 11:04 PM RADIATION DOSE METRICS: Total DLP (mGy-cm): 458.9 FINDINGS: Tubes, catheters and devices: Left ureteral sten t is noted with the superior pigtail at the left renal pelvis. Lungs: Reticular scarring and/or plate atelectas is at both lung bases. Heart: No cardiomegaly. Diaphragm: Moderate to large hiatal hernia is no sarah associated with air-fluid level. As noted previously, there is asy mmetric wall and rugal fold thickening noted at the ventral aspect of the herniated int rathoracic portion of the stomach (3, 5-11). The location of the EG juncti on is difficult to identify. Liver: Focal fatty infiltration at hepatic segme nt 4b is noted. Mild hepatomegaly. No hepatic mass. Gallbladder and bile ducts: The gallbladder is s urgically absent. There is minimal compensatory dilatation of the extrahepa tic biliary tree. Pancreas: There is mild generalized pancreatic a trophy without mass or ductal dilatation. Spleen: Unremarkable. No splenomegaly. Adrenals: Unremarkable. Kidneys and ureters: Renal c ortical scarring and renal cortical volume loss are present at the kidneys bilat erally. Bilateral extrarenal pelves are noted which is a developmental variant. There is mild nonspe cific smooth wall thickening noted at the left renal pelvis and visualized le ft ureter. Stomach and bowel: Mild stoo l burden at the hepatic flexure, right and proximal transverse colon. The stomach and small bowel ar e otherwise unremarkable. No obstruction. Intraperitoneal space: Unremarkable. No free air . No significant intraperitoneal fluid collection. Lymph nodes: Unremarkable. No enlarged lymph nod es. Vasculature: Unremarkable. No abdominal aortic a neurysm. Reproductive: Left ovarian cyst measuring 3.7 x 2.5 cm. Bones/joints: Unremarkable. No acute osseous abn ormality. Soft tissues: Tiny to small fat filled u mbilical hernia without incarceration. A 4.2 cm transverse abdominal wall defec t in the midline at the supraumbilical ventral abdominal wall is noted conveying fat in to a small hernia sac without incarceration. IMPRESSION: 1. Moderate to large hiatal hernia is noted asso ciated with air-fluid level similar in size to the previous exam. As noted previously, there is asymmetric wall and rugal fold thickening noted at the vent ral aspect of the herniated intrathoracic portion of the stomach (3, 5-11) w hich may represent redundant/collapsed rugal fo lds but is concerning for inflammation or neoplasm. Direct visualization or upper GI examination is recommended. 2. 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 There has been interval placement of a left uret eral stent; the distal stent and pigtail is not imaged. 3. There is mild nonspecific smooth wall thicken ing noted at the left renal pelvis and visualized left ureter which may repr esent nonspecific edema, scarring or an infiltrative process. 4. A 4.2 cm transverse abdominal wall defect in the midline at the supraumbilical ventral abdominal wall is noted c onveying fat into a small hernia sac without incarceration (3, 47). 5. Left ovarian cyst measuring 3.7 x 2.5 cm. Pel bob sonography is recommended for further evaluation. 6. Focal fatty infiltration at hepatic s egment 4b is noted. Mild hepatomegaly. 7. The gallbladder is surgically absent. There i s minimal compensatory dilatation of the extrahepatic biliary tree. 8. Renal cortical scarring and renal cortical vo lume loss are present at the kidneys bilaterally. Waqas Soler MD On 05/24/2021 14:56:43; VR-HR [id number] 2021-05-24 Radiation Dose CTDIVOL = 0 (mGy): DLP = 458.9 (m Gy-cm) [facility] 10:12:00-00:00 Addendum: Bones/joints: Degenerative disc disease L5-S1. T iny Schmorl's node deformities are noted at the superior and inferi or endplates of L2. 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 Stable subcentimet er bone island at the medial left iliac wing. Waqas Soler MD On 05/24/2021 14:58:59; VR-HR [id number] Radiation Dose CTDIVOL = 0 (mGy): DLP = 458.9 ( mGy-cm) PROCEDURE INFORMATION: Exam: CT Abdomen With Contrast Exam date and time: 05/24/2021 12:37 PM Age: 70 years old Clinical indication: Gastro-esophageal reflux di sease without esophagitis; Epigastric pain; Bariatric surgery status; Addit ional info: /r10.13, z98.84, k21.9 TECHNIQUE: Imaging protocol: Computed tomography images of the abdomen with intravenous contrast. Radiation optimization: All CT scans at this facility use at least one of these dose optimization techniques: automated exposure control; mA and/or kV adjustment per patient size (includes targeted e xams where dose is matched to clinical indication); or iterative reconstructio n. Contrast material: OMNI; Contrast volume: 80 ml; Contrast route: INTRAVENOUS (IV); Other contrast: Oral, omni, 50; COMPARISON: ABDOMEN/PELVIS W IV CONTRAST CT 02/09/2021 11:04 PM RADIATION DOSE METRICS: Total DLP (mGy-cm): 458.9 FINDINGS: Tubes, catheters and devices: Left ureteral sten t is noted with the superior pigtail at the left renal pelvis. Lungs: Reticular scarring and/or plate atelectas is at both lung bases. Heart: No cardiomegaly. Diaphragm: Moderate to large hiatal hernia is no sarah associated with air-fluid level. As noted previously, there is asy mmetric wall and rugal fold thickening noted at the ventral aspect of the herniated int rathoracic portion of the stomach (3, 5-11). The location of the EG juncti on is difficult to identify. Liver: Focal fatty infiltration at hepatic segme nt 4b is noted. Mild hepatomegaly. No hepatic mass. Gallbladder and bile ducts: The gallbladder is s urgically absent. There is minimal compensatory dilatation of the extrahepa tic biliary tree. Pancreas: There is mild generalized pancreatic a trophy without mass or ductal dilatation. Spleen: Unremarkable. No splenomegaly. Adrenals: Unremarkable. Kidneys and ureters: Renal c ortical scarring and renal cortical volume loss are present at the kidneys bilat erally. Bilateral extrarenal pelves are noted which is a developmental variant. There is mild nonspe cific smooth wall thickening noted at the left renal pelvis and visualized le ft ureter. Stomach and bowel: Mild stoo l burden at the hepatic flexure, right and proximal transverse colon. The stomach and small bowel ar e otherwise unremarkable. No obstruction. Intraperitoneal space: Unremarkable. No free air . No significant intraperitoneal fluid collection. Lymph nodes: Unremarkable. No enlarged lymph nod es. Vasculature: Unremarkable. No abdominal aortic a neurysm. Reproductive: Left ovarian cyst measuring 3.7 x 2.5 cm. Bones/joints: Unremarkable. No acute osseous abn ormality. Soft tissues: Tiny to small fat filled u mbilical hernia without incarceration. A 4.2 cm transverse abdominal wall defec t in the midline at the supraumbilical ventral abdominal wall is noted conveying fat in to a small hernia sac without incarceration. IMPRESSION: 1. Moderate to large hiatal hernia is noted asso ciated with air-fluid level similar in size to the previous exam. As noted previously, there is asymmetric wall and rugal fold thickening noted at the vent ral aspect of the herniated intrathoracic portion of the stomach (3, 5-11) w hich may represent redundant/collapsed rugal fo lds but is concerning for inflammation or neoplasm. Direct visualization or upper GI examination is recommended. 2. 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 There has been interval placement of a left uret eral stent; the distal stent and pigtail is not imaged. 3. There is mild nonspecific smooth wall thicken ing noted at the left renal pelvis and visualized left ureter which may repr esent nonspecific edema, scarring or an infiltrative process. 4. A 4.2 cm transverse abdominal wall defect in the midline at the supraumbilical ventral abdominal wall is noted c onveying fat into a small hernia sac without incarceration (3, 47). 5. Left ovarian cyst measuring 3.7 x 2.5 cm. Pel bob sonography is recommended for further evaluation. 6. Focal fatty infiltration at hepatic s egment 4b is noted. Mild hepatomegaly. 7. The gallbladder is surgically absent. There i s minimal compensatory dilatation of the extrahepatic biliary tree. 8. Renal cortical scarring and renal cortical vo lume loss are present at the kidneys bilaterally. Waqas Soler MD On 05/24/2021 14:56:43; VR-HR [id number] 2021-05-24 Radiation Dose CTDIVOL = 0 (mGy): DLP = 458.9 (m Gy-cm) [facility] 10:12:00-00:00 Addendum: Bones/joints: Degenerative disc disease L5-S1. T iny Schmorl's node deformities are noted at the superior and inferi or endplates of L2. 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 Stable subcentimet er bone island at the medial left iliac wing. Waqas Soler MD On 05/24/2021 14:58:59; VR-HR [id number] Radiation Dose CTDIVOL = 0 (mGy): DLP = 458.9 ( mGy-cm) PROCEDURE INFORMATION: Exam: CT Abdomen With Contrast Exam date and time: 05/24/2021 12:37 PM Age: 70 years old Clinical indication: Gastro-esophageal reflux di sease without esophagitis; Epigastric pain; Bariatric surgery status; Addit ional info: /r10.13, z98.84, k21.9 TECHNIQUE: Imaging protocol: Computed tomography images of the abdomen with intravenous contrast. Radiation optimization: All CT scans at this facility use at least one of these dose optimization techniques: automated exposure control; mA and/or kV adjustment per patient size (includes targeted e xams where dose is matched to clinical indication); or iterative reconstructio n. Contrast material: OMNI; Contrast volume: 80 ml; Contrast route: INTRAVENOUS (IV); Other contrast: Oral, omni, 50; COMPARISON: ABDOMEN/PELVIS W IV CONTRAST CT 02/09/2021 11:04 PM RADIATION DOSE METRICS: Total DLP (mGy-cm): 458.9 FINDINGS: Tubes, catheters and devices: Left ureteral sten t is noted with the superior pigtail at the left renal pelvis. Lungs: Reticular scarring and/or plate atelectas is at both lung bases. Heart: No cardiomegaly. Diaphragm: Moderate to large hiatal hernia is no sarah associated with air-fluid level. As noted previously, there is asy mmetric wall and rugal fold thickening noted at the ventral aspect of the herniated int rathoracic portion of the stomach (3, 5-11). The location of the EG juncti on is difficult to identify. Liver: Focal fatty infiltration at hepatic segme nt 4b is noted. Mild hepatomegaly. No hepatic mass. Gallbladder and bile ducts: The gallbladder is s urgically absent. There is minimal compensatory dilatation of the extrahepa tic biliary tree. Pancreas: There is mild generalized pancreatic a trophy without mass or ductal dilatation. Spleen: Unremarkable. No splenomegaly. Adrenals: Unremarkable. Kidneys and ureters: Renal c ortical scarring and renal cortical volume loss are present at the kidneys bilat erally. Bilateral extrarenal pelves are noted which is a developmental variant. There is mild nonspe cific smooth wall thickening noted at the left renal pelvis and visualized le ft ureter. Stomach and bowel: Mild stoo l burden at the hepatic flexure, right and proximal transverse colon. The stomach and small bowel ar e otherwise unremarkable. No obstruction. Intraperitoneal space: Unremarkable. No free air . No significant intraperitoneal fluid collection. Lymph nodes: Unremarkable. No enlarged lymph nod es. Vasculature: Unremarkable. No abdominal aortic a neurysm. Reproductive: Left ovarian cyst measuring 3.7 x 2.5 cm. Bones/joints: Unremarkable. No acute osseous abn ormality. Soft tissues: Tiny to small fat filled u mbilical hernia without incarceration. A 4.2 cm transverse abdominal wall defec t in the midline at the supraumbilical ventral abdominal wall is noted conveying fat in to a small hernia sac without incarceration. IMPRESSION: 1. Moderate to large hiatal hernia is noted asso ciated with air-fluid level similar in size to the previous exam. As noted previously, there is asymmetric wall and rugal fold thickening noted at the vent ral aspect of the herniated intrathoracic portion of the stomach (3, 5-11) w hich may represent redundant/collapsed rugal fo lds but is concerning for inflammation or neoplasm. Direct visualization or upper GI examination is recommended. 2. 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 There has been interval placement of a left uret eral stent; the distal stent and pigtail is not imaged. 3. There is mild nonspecific smooth wall thicken ing noted at the left renal pelvis and visualized left ureter which may repr esent nonspecific edema, scarring or an infiltrative process. 4. A 4.2 cm transverse abdominal wall defect in the midline at the supraumbilical ventral abdominal wall is noted c onveying fat into a small hernia sac without incarceration (3, 47). 5. Left ovarian cyst measuring 3.7 x 2.5 cm. Pel bob sonography is recommended for further evaluation. 6. Focal fatty infiltration at hepatic s egment 4b is noted. Mild hepatomegaly. 7. The gallbladder is surgically absent. There i s minimal compensatory dilatation of the extrahepatic biliary tree. 8. Renal cortical scarring and renal cortical vo lume loss are present at the kidneys bilaterally. Waqas Soler MD On 05/24/2021 14:56:43; VR-HR [id number] 2021-05-24 Radiation Dose CTDIVOL = 0 (mGy): DLP = 458.9 (m Gy-cm) [facility] 10:12:00-00:00 Addendum: Bones/joints: Degenerative disc disease L5-S1. T iny Schmorl's node deformities are noted at the superior and inferi or endplates of L2. 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 Stable subcentimet er bone island at the medial left iliac wing. Waqas Soler MD On 05/24/2021 14:58:59; VR-HR [id number] Radiation Dose CTDIVOL = 0 (mGy): DLP = 458.9 ( mGy-cm) PROCEDURE INFORMATION: Exam: CT Abdomen With Contrast Exam date and time: 05/24/2021 12:37 PM Age: 70 years old Clinical indication: Gastro-esophageal reflux di sease without esophagitis; Epigastric pain; Bariatric surgery status; Addit ional info: /r10.13, z98.84, k21.9 TECHNIQUE: Imaging protocol: Computed tomography images of the abdomen with intravenous contrast. Radiation optimization: All CT scans at this facility use at least one of these dose optimization techniques: automated exposure control; mA and/or kV adjustment per patient size (includes targeted e xams where dose is matched to clinical indication); or iterative reconstructio n. Contrast material: OMNI; Contrast volume: 80 ml; Contrast route: INTRAVENOUS (IV); Other contrast: Oral, omni, 50; COMPARISON: ABDOMEN/PELVIS W IV CONTRAST CT 02/09/2021 11:04 PM RADIATION DOSE METRICS: Total DLP (mGy-cm): 458.9 FINDINGS: Tubes, catheters and devices: Left ureteral sten t is noted with the superior pigtail at the left renal pelvis. Lungs: Reticular scarring and/or plate atelectas is at both lung bases. Heart: No cardiomegaly. Diaphragm: Moderate to large hiatal hernia is no sarah associated with air-fluid level. As noted previously, there is asy mmetric wall and rugal fold thickening noted at the ventral aspect of the herniated int rathoracic portion of the stomach (3, 5-11). The location of the EG juncti on is difficult to identify. Liver: Focal fatty infiltration at hepatic segme nt 4b is noted. Mild hepatomegaly. No hepatic mass. Gallbladder and bile ducts: The gallbladder is s urgically absent. There is minimal compensatory dilatation of the extrahepa tic biliary tree. Pancreas: There is mild generalized pancreatic a trophy without mass or ductal dilatation. Spleen: Unremarkable. No splenomegaly. Adrenals: Unremarkable. Kidneys and ureters: Renal c ortical scarring and renal cortical volume loss are present at the kidneys bilat erally. Bilateral extrarenal pelves are noted which is a developmental variant. There is mild nonspe cific smooth wall thickening noted at the left renal pelvis and visualized le ft ureter. Stomach and bowel: Mild stoo l burden at the hepatic flexure, right and proximal transverse colon. The stomach and small bowel ar e otherwise unremarkable. No obstruction. Intraperitoneal space: Unremarkable. No free air . No significant intraperitoneal fluid collection. Lymph nodes: Unremarkable. No enlarged lymph nod es. Vasculature: Unremarkable. No abdominal aortic a neurysm. Reproductive: Left ovarian cyst measuring 3.7 x 2.5 cm. Bones/joints: Unremarkable. No acute osseous abn ormality. Soft tissues: Tiny to small fat filled u mbilical hernia without incarceration. A 4.2 cm transverse abdominal wall defec t in the midline at the supraumbilical ventral abdominal wall is noted conveying fat in to a small hernia sac without incarceration. IMPRESSION: 1. Moderate to large hiatal hernia is noted asso ciated with air-fluid level similar in size to the previous exam. As noted previously, there is asymmetric wall and rugal fold thickening noted at the vent ral aspect of the herniated intrathoracic portion of the stomach (3, 5-11) w hich may represent redundant/collapsed rugal fo lds but is concerning for inflammation or neoplasm. Direct visualization or upper GI examination is recommended. 2. 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 There has been interval placement of a left uret eral stent; the distal stent and pigtail is not imaged. 3. There is mild nonspecific smooth wall thicken ing noted at the left renal pelvis and visualized left ureter which may repr esent nonspecific edema, scarring or an infiltrative process. 4. A 4.2 cm transverse abdominal wall defect in the midline at the supraumbilical ventral abdominal wall is noted c onveying fat into a small hernia sac without incarceration (3, 47). 5. Left ovarian cyst measuring 3.7 x 2.5 cm. Pel bob sonography is recommended for further evaluation. 6. Focal fatty infiltration at hepatic s egment 4b is noted. Mild hepatomegaly. 7. The gallbladder is surgically absent. There i s minimal compensatory dilatation of the extrahepatic biliary tree. 8. Renal cortical scarring and renal cortical vo lume loss are present at the kidneys bilaterally. Waqas Soler MD On 05/24/2021 14:56:43; VR-HR [id number] 2021-05-24 Radiation Dose CTDIVOL = 0 (mGy): DLP = 458.9 (m Gy-cm) [facility] 10:12:00-00:00 Addendum: Bones/joints: Degenerative disc disease L5-S1. T iny Schmorl's node deformities are noted at the superior and inferi or endplates of L2. 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 Stable subcentimet er bone island at the medial left iliac wing. Waqas Soler MD On 05/24/2021 14:58:59; VR-HR [id number] Radiation Dose CTDIVOL = 0 (mGy): DLP = 458.9 ( mGy-cm) PROCEDURE INFORMATION: Exam: CT Abdomen With Contrast Exam date and time: 05/24/2021 12:37 PM Age: 70 years old Clinical indication: Gastro-esophageal reflux di sease without esophagitis; Epigastric pain; Bariatric surgery status; Addit ional info: /r10.13, z98.84, k21.9 TECHNIQUE: Imaging protocol: Computed tomography images of the abdomen with intravenous contrast. Radiation optimization: All CT scans at this facility use at least one of these dose optimization techniques: automated exposure control; mA and/or kV adjustment per patient size (includes targeted e xams where dose is matched to clinical indication); or iterative reconstructio n. Contrast material: OMNI; Contrast volume: 80 ml; Contrast route: INTRAVENOUS (IV); Other contrast: Oral, omni, 50; COMPARISON: ABDOMEN/PELVIS W IV CONTRAST CT 02/09/2021 11:04 PM RADIATION DOSE METRICS: Total DLP (mGy-cm): 458.9 FINDINGS: Tubes, catheters and devices: Left ureteral sten t is noted with the superior pigtail at the left renal pelvis. Lungs: Reticular scarring and/or plate atelectas is at both lung bases. Heart: No cardiomegaly. Diaphragm: Moderate to large hiatal hernia is no sarah associated with air-fluid level. As noted previously, there is asy mmetric wall and rugal fold thickening noted at the ventral aspect of the herniated int rathoracic portion of the stomach (3, 5-11). The location of the EG juncti on is difficult to identify. Liver: Focal fatty infiltration at hepatic segme nt 4b is noted. Mild hepatomegaly. No hepatic mass. Gallbladder and bile ducts: The gallbladder is s urgically absent. There is minimal compensatory dilatation of the extrahepa tic biliary tree. Pancreas: There is mild generalized pancreatic a trophy without mass or ductal dilatation. Spleen: Unremarkable. No splenomegaly. Adrenals: Unremarkable. Kidneys and ureters: Renal c ortical scarring and renal cortical volume loss are present at the kidneys bilat erally. Bilateral extrarenal pelves are noted which is a developmental variant. There is mild nonspe cific smooth wall thickening noted at the left renal pelvis and visualized le ft ureter. Stomach and bowel: Mild stoo l burden at the hepatic flexure, right and proximal transverse colon. The stomach and small bowel ar e otherwise unremarkable. No obstruction. Intraperitoneal space: Unremarkable. No free air . No significant intraperitoneal fluid collection. Lymph nodes: Unremarkable. No enlarged lymph nod es. Vasculature: Unremarkable. No abdominal aortic a neurysm. Reproductive: Left ovarian cyst measuring 3.7 x 2.5 cm. Bones/joints: Unremarkable. No acute osseous abn ormality. Soft tissues: Tiny to small fat filled u mbilical hernia without incarceration. A 4.2 cm transverse abdominal wall defec t in the midline at the supraumbilical ventral abdominal wall is noted conveying fat in to a small hernia sac without incarceration. IMPRESSION: 1. Moderate to large hiatal hernia is noted asso ciated with air-fluid level similar in size to the previous exam. As noted previously, there is asymmetric wall and rugal fold thickening noted at the vent ral aspect of the herniated intrathoracic portion of the stomach (3, 5-11) w hich may represent redundant/collapsed rugal fo lds but is concerning for inflammation or neoplasm. Direct visualization or upper GI examination is recommended. 2. 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 There has been interval placement of a left uret eral stent; the distal stent and pigtail is not imaged. 3. There is mild nonspecific smooth wall thicken ing noted at the left renal pelvis and visualized left ureter which may repr esent nonspecific edema, scarring or an infiltrative process. 4. A 4.2 cm transverse abdominal wall defect in the midline at the supraumbilical ventral abdominal wall is noted c onveying fat into a small hernia sac without incarceration (3, 47). 5. Left ovarian cyst measuring 3.7 x 2.5 cm. Pel bob sonography is recommended for further evaluation. 6. Focal fatty infiltration at hepatic s egment 4b is noted. Mild hepatomegaly. 7. The gallbladder is surgically absent. There i s minimal compensatory dilatation of the extrahepatic biliary tree. 8. Renal cortical scarring and renal cortical vo lume loss are present at the kidneys bilaterally. Waqas Soler MD On 05/24/2021 14:56:43; VR-HR [id number] 2021-04-10 EXAM: Femur series DX [facility] and 20:07:33-00:00 DATE: 04/10/2021 18:13 CDT. PATIENT INFORMATION: 70 years of age, Female INDICATION OF EXAM: ' - CMN ' COMPARISON: 04/09/2021 TECHNIQUE: 4 view(s) of the left femur submitted for review. FINDINGS: Bones: Status post intramedu llary fercho and screw fixation of the femur for acute intertrochanteric fracture which is still demonstrated on the current exam. No findings concerning for immediate complications. Soft tissues: Mild soft tiss ue air adjacent to the hip in keeping with recent surgery. Additional comments: None. IMPRESSION: 1. Status post intramedullar y fercho and screw fixation of the femur without findings concerning for immediate complications. 2021-04-10 EXAM: Femur series DX [facility] and 20:07:33-00:00 DATE: 04/10/2021 18:13 CDT. PATIENT INFORMATION: 70 years of age, Female INDICATION OF EXAM: ' - CMN ' COMPARISON: 04/09/2021 TECHNIQUE: 4 view(s) of the left femur submitted for review. FINDINGS: Bones: Status post intramedu llary fercho and screw fixation of the femur for acute intertrochanteric fracture which is still demonstrated on the current exam. No findings concerning for immediate complications. Soft tissues: Mild soft tiss ue air adjacent to the hip in keeping with recent surgery. Additional comments: None. IMPRESSION: 1. Status post intramedullar y fercho and screw fixation of the femur without findings concerning for immediate complications. 2021-04-10 EXAM: Femur series DX [facility] and 20:07:33-00:00 DATE: 04/10/2021 18:13 CDT. PATIENT INFORMATION: 70 years of age, Female INDICATION OF EXAM: ' - CMN ' COMPARISON: 04/09/2021 TECHNIQUE: 4 view(s) of the left femur submitted for review. FINDINGS: Bones: Status post intramedu llary fercho and screw fixation of the femur for acute intertrochanteric fracture which is still demonstrated on the current exam. No findings concerning for immediate complications. Soft tissues: Mild soft tiss ue air adjacent to the hip in keeping with recent surgery. Additional comments: None. IMPRESSION: 1. Status post intramedullar y fercho and screw fixation of the femur without findings concerning for immediate complications. 2021-04-10 EXAM: Femur series DX [facility] 20:07:33-00:00 DATE: 04/10/2021 18:13 CDT. PATIENT INFORMATION: 70 years of age, Female INDICATION OF EXAM: ' - CMN ' COMPARISON: 04/09/2021 TECHNIQUE: 4 view(s) of the left femur submitted for review. FINDINGS: Bones: Status post intramedu llary fercho and screw fixation of the femur for acute intertrochanteric fracture which is still demonstrated on the current exam. No findings concerning for immediate complications. Soft tissues: Mild soft tiss ue air adjacent to the hip in keeping with recent surgery. Additional comments: None. IMPRESSION: 1. Status post intramedullar y fercho and screw fixation of the femur without findings concerning for immediate complications. 2021-04-10 EXAM: Femur series DX [facility] 20:07:33-00:00 DATE: 04/10/2021 18:13 CDT. PATIENT INFORMATION: 70 years of age, Female INDICATION OF EXAM: ' - CMN ' COMPARISON: 04/09/2021 TECHNIQUE: 4 view(s) of the left femur submitted for review. FINDINGS: Bones: Status post intramedu llary fercho and screw fixation of the femur for acute intertrochanteric fracture which is still demonstrated on the current exam. No findings concerning for immediate complications. Soft tissues: Mild soft tiss ue air adjacent to the hip in keeping with recent surgery. Additional comments: None. IMPRESSION: 1. Status post intramedullar y fercho and screw fixation of the femur without findings concerning for immediate complications. 2021-04-10 EXAM: Femur series DX [facility] 20:07:33-00:00 DATE: 04/10/2021 18:13 CDT. PATIENT INFORMATION: 70 years of age, Female INDICATION OF EXAM: ' - CMN ' COMPARISON: 04/09/2021 TECHNIQUE: 4 view(s) of the left femur submitted for review. FINDINGS: Bones: Status post intramedu llary fercho and screw fixation of the femur for acute intertrochanteric fracture which is still demonstrated on the current exam. No findings concerning for immediate complications. Soft tissues: Mild soft tiss ue air adjacent to the hip in keeping with recent surgery. Additional comments: None. IMPRESSION: 1. Status post intramedullar y fercho and screw fixation of the femur without findings concerning for immediate complications. 2021-04-10 EXAM: Femur series DX [facility] 20:07:33-00:00 DATE: 04/10/2021 18:13 CDT. PATIENT INFORMATION: 70 years of age, Female INDICATION OF EXAM: ' - CMN ' COMPARISON: 04/09/2021 TECHNIQUE: 4 view(s) of the left femur submitted for review. FINDINGS: Bones: Status post intramedu llary fercho and screw fixation of the femur for acute intertrochanteric fracture which is still demonstrated on the current exam. No findings concerning for immediate complications. Soft tissues: Mild soft tiss ue air adjacent to the hip in keeping with recent surgery. Additional comments: None. IMPRESSION: 1. Status post intramedullar y fercho and screw fixation of the femur without findings concerning for immediate complications. 2021-04-10 EXAM: Femur series DX [facility] 20:07:33-00:00 DATE: 04/10/2021 18:13 CDT. PATIENT INFORMATION: 70 years of age, Female INDICATION OF EXAM: ' - CMN ' COMPARISON: 04/09/2021 TECHNIQUE: 4 view(s) of the left femur submitted for review. FINDINGS: Bones: Status post intramedu llary fercho and screw fixation of the femur for acute intertrochanteric fracture which is still demonstrated on the current exam. No findings concerning for immediate complications. Soft tissues: Mild soft tiss ue air adjacent to the hip in keeping with recent surgery. Additional comments: None. IMPRESSION: 1. Status post intramedullar y fercho and screw fixation of the femur without findings concerning for immediate complications. 2021-04-10 EXAM: Femur series DX [facility] 20:07:33-00:00 DATE: 04/10/2021 18:13 CDT. PATIENT INFORMATION: 70 years of age, Female INDICATION OF EXAM: ' - CMN ' COMPARISON: 04/09/2021 TECHNIQUE: 4 view(s) of the left femur submitted for review. FINDINGS: Bones: Status post intramedu llary fercho and screw fixation of the femur for acute intertrochanteric fracture which is still demonstrated on the current exam. No findings concerning for immediate complications. Soft tissues: Mild soft tiss ue air adjacent to the hip in keeping with recent surgery. Additional comments: None. IMPRESSION: 1. Status post intramedullar y fercho and screw fixation of the femur without findings concerning for immediate complications. 2021-04-10 EXAM: Femur series DX [facility] 20:07:33-00:00 DATE: 04/10/2021 18:13 CDT. PATIENT INFORMATION: 70 years of age, Female INDICATION OF EXAM: ' - CMN ' COMPARISON: 04/09/2021 TECHNIQUE: 4 view(s) of the left femur submitted for review. FINDINGS: Bones: Status post intramedu llary fercho and screw fixation of the femur for acute intertrochanteric fracture which is still demonstrated on the current exam. No findings concerning for immediate complications. Soft tissues: Mild soft tiss ue air adjacent to the hip in keeping with recent surgery. Additional comments: None. IMPRESSION: 1. Status post intramedullar y fercho and screw fixation of the femur without findings concerning for immediate complications. 2021-04-10 EXAM: Femur series DX [facility] 20:07:33-00:00 DATE: 04/10/2021 18:13 CDT. PATIENT INFORMATION: 70 years of age, Female INDICATION OF EXAM: ' - CMN ' COMPARISON: 04/09/2021 TECHNIQUE: 4 view(s) of the left femur submitted for review. FINDINGS: Bones: Status post intramedu llary fercho and screw fixation of the femur for acute intertrochanteric fracture which is still demonstrated on the current exam. No findings concerning for immediate complications. Soft tissues: Mild soft tiss ue air adjacent to the hip in keeping with recent surgery. Additional comments: None. IMPRESSION: 1. Status post intramedullar y fercho and screw fixation of the femur without findings concerning for immediate complications. 2021-04-10 EXAM: Femur series DX [facility] 20:07:33-00:00 DATE: 04/10/2021 18:13 CDT. PATIENT INFORMATION: 70 years of age, Female INDICATION OF EXAM: ' - CMN ' COMPARISON: 04/09/2021 TECHNIQUE: 4 view(s) of the left femur submitted for review. FINDINGS: Bones: Status post intramedu llary fercho and screw fixation of the femur for acute intertrochanteric fracture which is still demonstrated on the current exam. No findings concerning for immediate complications. Soft tissues: Mild soft tiss ue air adjacent to the hip in keeping with recent surgery. Additional comments: None. IMPRESSION: 1. Status post intramedullar y fercho and screw fixation of the femur without findings concerning for immediate complications. 2021-04-10 EXAM: Femur series DX [facility] 20:07:33-00:00 DATE: 04/10/2021 18:13 CDT. PATIENT INFORMATION: 70 years of age, Female INDICATION OF EXAM: ' - CMN ' COMPARISON: 04/09/2021 TECHNIQUE: 4 view(s) of the left femur submitted for review. FINDINGS: Bones: Status post intramedu llary fercho and screw fixation of the femur for acute intertrochanteric fracture which is still demonstrated on the current exam. No findings concerning for immediate complications. Soft tissues: Mild soft tiss ue air adjacent to the hip in keeping with recent surgery. Additional comments: None. IMPRESSION: 1. Status post intramedullar y fercho and screw fixation of the femur without findings concerning for immediate complications. 2021-04-10 EXAM: Femur series DX [facility] 20:07:33-00:00 DATE: 04/10/2021 18:13 CDT. PATIENT INFORMATION: 70 years of age, Female INDICATION OF EXAM: ' - CMN ' COMPARISON: 04/09/2021 TECHNIQUE: 4 view(s) of the left femur submitted for review. FINDINGS: Bones: Status post intramedu llary fercho and screw fixation of the femur for acute intertrochanteric fracture which is still demonstrated on the current exam. No findings concerning for immediate complications. Soft tissues: Mild soft tiss ue air adjacent to the hip in keeping with recent surgery. Additional comments: None. IMPRESSION: 1. Status post intramedullar y fercho and screw fixation of the femur without findings concerning for immediate complications. 2021-04-10 EXAM: Femur series DX [facility] 20:07:33-00:00 DATE: 04/10/2021 18:13 CDT. PATIENT INFORMATION: 70 years of age, Female INDICATION OF EXAM: ' - CMN ' COMPARISON: 04/09/2021 TECHNIQUE: 4 view(s) of the left femur submitted for review. FINDINGS: Bones: Status post intramedu llary fercho and screw fixation of the femur for acute intertrochanteric fracture which is still demonstrated on the current exam. No findings concerning for immediate complications. Soft tissues: Mild soft tiss ue air adjacent to the hip in keeping with recent surgery. Additional comments: None. IMPRESSION: 1. Status post intramedullar y fercho and screw fixation of the femur without findings concerning for immediate complications. 2021-04-10 EXAM: Femur series DX [facility] 20:07:33-00:00 DATE: 04/10/2021 18:13 CDT. PATIENT INFORMATION: 70 years of age, Female INDICATION OF EXAM: ' - CMN ' COMPARISON: 04/09/2021 TECHNIQUE: 4 view(s) of the left femur submitted for review. FINDINGS: Bones: Status post intramedu llary fercho and screw fixation of the femur for acute intertrochanteric fracture which is still demonstrated on the current exam. No findings concerning for immediate complications. Soft tissues: Mild soft tiss ue air adjacent to the hip in keeping with recent surgery. Additional comments: None. IMPRESSION: 1. Status post intramedullar y fercho and screw fixation of the femur without findings concerning for immediate complications. 2021-04-10 EXAM: Femur series DX [facility] 20:07:33-00:00 DATE: 04/10/2021 18:13 CDT. PATIENT INFORMATION: 70 years of age, Female INDICATION OF EXAM: ' - CMN ' COMPARISON: 04/09/2021 TECHNIQUE: 4 view(s) of the left femur submitted for review. FINDINGS: Bones: Status post intramedu llary fercho and screw fixation of the femur for acute intertrochanteric fracture which is still demonstrated on the current exam. No findings concerning for immediate complications. Soft tissues: Mild soft tiss ue air adjacent to the hip in keeping with recent surgery. Additional comments: None. IMPRESSION: 1. Status post intramedullar y fercho and screw fixation of the femur without findings concerning for immediate complications. 2021-04-10 EXAM: Femur series DX [facility] 20:07:33-00:00 DATE: 04/10/2021 18:13 CDT. PATIENT INFORMATION: 70 years of age, Female INDICATION OF EXAM: ' - CMN ' COMPARISON: 04/09/2021 TECHNIQUE: 4 view(s) of the left femur submitted for review. FINDINGS: Bones: Status post intramedu llary fercho and screw fixation of the femur for acute intertrochanteric fracture which is still demonstrated on the current exam. No findings concerning for immediate complications. Soft tissues: Mild soft tiss ue air adjacent to the hip in keeping with recent surgery. Additional comments: None. IMPRESSION: 1. Status post intramedullar y fercho and screw fixation of the femur without findings concerning for immediate complications. 2021-04-10 EXAM: Femur series DX [facility] 20:07:33-00:00 DATE: 04/10/2021 18:13 CDT. PATIENT INFORMATION: 70 years of age, Female INDICATION OF EXAM: ' - CMN ' COMPARISON: 04/09/2021 TECHNIQUE: 4 view(s) of the left femur submitted for review. FINDINGS: Bones: Status post intramedu llary fercho and screw fixation of the femur for acute intertrochanteric fracture which is still demonstrated on the current exam. No findings concerning for immediate complications. Soft tissues: Mild soft tiss ue air adjacent to the hip in keeping with recent surgery. Additional comments: None. IMPRESSION: 1. Status post intramedullar y fercho and screw fixation of the femur without findings concerning for immediate complications. 2021-04-10 No report is required for this exam. [place] 18:33:38-00:00 Technical component complete. 2021-04-10 No report is required for this exam. [place] 18:33:38-00:00 Technical component complete. 2021-04-10 No report is required for this exam. [place] 18:33:38-00:00 Technical component complete. 2021-04-10 No report is required for this exam. [place] 18:33:38-00:00 Technical component complete. 2021-04-10 No report is required for this exam. [place] 18:33:38-00:00 Technical component complete. 2021-04-10 No report is required for this exam. [place] 18:33:38-00:00 Technical component complete. 2021-04-10 No report is required for this exam. [place] 18:33:38-00:00 Technical component complete. 2021-04-10 No report is required for this exam. [place] 18:33:38-00:00 Technical component complete. 2021-04-10 No report is required for this exam. [place] 18:33:38-00:00 Technical component complete. 2021-04-10 No report is required for this exam. [place] 18:33:38-00:00 Technical component complete. 2021-04-10 No report is required for this exam. [place] 18:33:38-00:00 Technical component complete. 2021-04-10 No report is required for this exam. [place] 18:33:38-00:00 Technical component complete. 2021-04-10 No report is required for this exam. [place] 18:33:38-00:00 Technical component complete. 2021-04-10 No report is required for this exam. [place] 18:33:38-00:00 Technical component complete. 2021-04-10 No report is required for this exam. [place] 18:33:38-00:00 Technical component complete. 2021-04-10 No report is required for this exam. [place] 18:33:38-00:00 Technical component complete. 2021-04-10 No report is required for this exam. [place] 18:33:38-00:00 Technical component complete. 2021-04-10 No report is required for this exam. [place] 18:33:38-00:00 Technical component complete. 2021-04-10 No report is required for this exam. [place] 18:33:38-00:00 Technical component complete. 2021-04-09 EXAM: Pelvis AP DX, Femur series DX [facility] 17:04:18-00:00 DATE: 04/09/2021 15:55 CDT. INDICATION: - fracture. COMPARISON: CT abdomen and pelvis from . TECHNIQUE: Frontal pelvis. FINDINGS: * Acute minimally displaced left intertrochanter ic fracture. * Mild degenerative changes of both hips. * Moderate regional soft tissue swelling. IMPRESSION: Acute minimally displaced intertrochanteric frac ture of the left hip. 2021-04-09 EXAM: Pelvis AP DX, Femur series DX [place] 17:04:18-00:00 DATE: 04/09/2021 15:55 CDT. INDICATION: - fracture. COMPARISON: CT abdomen and pelvis from . TECHNIQUE: Frontal pelvis. FINDINGS: * Acute minimally displaced left intertrochanter ic fracture. * Mild degenerative changes of both hips. * Moderate regional soft tissue swelling. IMPRESSION: Acute minimally displaced intertrochanteric frac ture of the left hip. 2021-04-09 EXAM: Pelvis AP DX, Femur series DX [place] 17:04:18-00:00 DATE: 04/09/2021 15:55 CDT. INDICATION: - fracture. COMPARISON: CT abdomen and pelvis from . TECHNIQUE: Frontal pelvis. FINDINGS: * Acute minimally displaced left intertrochanter ic fracture. * Mild degenerative changes of both hips. * Moderate regional soft tissue swelling. IMPRESSION: Acute minimally displaced intertrochanteric frac ture of the left hip. 2021-04-09 EXAM: Pelvis AP DX, Femur series DX [place] 17:04:18-00:00 DATE: 04/09/2021 15:55 CDT. INDICATION: - fracture. COMPARISON: CT abdomen and pelvis from . TECHNIQUE: Frontal pelvis. FINDINGS: * Acute minimally displaced left intertrochanter ic fracture. * Mild degenerative changes of both hips. * Moderate regional soft tissue swelling. IMPRESSION: Acute minimally displaced intertrochanteric frac ture of the left hip. 2021-04-09 EXAM: Pelvis AP DX, Femur series DX [place] 17:04:18-00:00 DATE: 04/09/2021 15:55 CDT. INDICATION: - fracture. COMPARISON: CT abdomen and pelvis from . TECHNIQUE: Frontal pelvis. FINDINGS: * Acute minimally displaced left intertrochanter ic fracture. * Mild degenerative changes of both hips. * Moderate regional soft tissue swelling. IMPRESSION: Acute minimally displaced intertrochanteric frac ture of the left hip. 2021-04-09 EXAM: Pelvis AP DX, Femur series DX [place] 17:04:18-00:00 DATE: 04/09/2021 15:55 CDT. INDICATION: - fracture. COMPARISON: CT abdomen and pelvis from . TECHNIQUE: Frontal pelvis. FINDINGS: * Acute minimally displaced left intertrochanter ic fracture. * Mild degenerative changes of both hips. * Moderate regional soft tissue swelling. IMPRESSION: Acute minimally displaced intertrochanteric frac ture of the left hip. 2021-04-09 EXAM: Pelvis AP DX, Femur series DX [place] 17:04:18-00:00 DATE: 04/09/2021 15:55 CDT. INDICATION: - fracture. COMPARISON: CT abdomen and pelvis from . TECHNIQUE: Frontal pelvis. FINDINGS: * Acute minimally displaced left intertrochanter ic fracture. * Mild degenerative changes of both hips. * Moderate regional soft tissue swelling. IMPRESSION: Acute minimally displaced intertrochanteric frac ture of the left hip. 2021-04-09 EXAM: Pelvis AP DX, Femur series DX [place] 17:04:18-00:00 DATE: 04/09/2021 15:55 CDT. INDICATION: - fracture. COMPARISON: CT abdomen and pelvis from . TECHNIQUE: Frontal pelvis. FINDINGS: * Acute minimally displaced left intertrochanter ic fracture. * Mild degenerative changes of both hips. * Moderate regional soft tissue swelling. IMPRESSION: Acute minimally displaced intertrochanteric frac ture of the left hip. 2021-04-09 EXAM: Pelvis AP DX, Femur series DX [place] 17:04:18-00:00 DATE: 04/09/2021 15:55 CDT. INDICATION: - fracture. COMPARISON: CT abdomen and pelvis from . TECHNIQUE: Frontal pelvis. FINDINGS: * Acute minimally displaced left intertrochanter ic fracture. * Mild degenerative changes of both hips. * Moderate regional soft tissue swelling. IMPRESSION: Acute minimally displaced intertrochanteric frac ture of the left hip. 2021-04-09 EXAM: Pelvis AP DX, Femur series DX [place] 17:04:18-00:00 DATE: 04/09/2021 15:55 CDT. INDICATION: - fracture. COMPARISON: CT abdomen and pelvis from . TECHNIQUE: Frontal pelvis. FINDINGS: * Acute minimally displaced left intertrochanter ic fracture. * Mild degenerative changes of both hips. * Moderate regional soft tissue swelling. IMPRESSION: Acute minimally displaced intertrochanteric frac ture of the left hip. 2021-04-09 EXAM: Pelvis AP DX, Femur series DX [place] 17:04:18-00:00 DATE: 04/09/2021 15:55 CDT. INDICATION: - fracture. COMPARISON: CT abdomen and pelvis from . TECHNIQUE: Frontal pelvis. FINDINGS: * Acute minimally displaced left intertrochanter ic fracture. * Mild degenerative changes of both hips. * Moderate regional soft tissue swelling. IMPRESSION: Acute minimally displaced intertrochanteric frac ture of the left hip. 2021-04-09 EXAM: Pelvis AP DX, Femur series DX [place] 17:04:18-00:00 DATE: 04/09/2021 15:55 CDT. INDICATION: - fracture. COMPARISON: CT abdomen and pelvis from . TECHNIQUE: Frontal pelvis. FINDINGS: * Acute minimally displaced left intertrochanter ic fracture. * Mild degenerative changes of both hips. * Moderate regional soft tissue swelling. IMPRESSION: Acute minimally displaced intertrochanteric frac ture of the left hip. 2021-04-09 EXAM: Pelvis AP DX, Femur series DX [place] 17:04:18-00:00 DATE: 04/09/2021 15:55 CDT. INDICATION: - fracture. COMPARISON: CT abdomen and pelvis from . TECHNIQUE: Frontal pelvis. FINDINGS: * Acute minimally displaced left intertrochanter ic fracture. * Mild degenerative changes of both hips. * Moderate regional soft tissue swelling. IMPRESSION: Acute minimally displaced intertrochanteric frac ture of the left hip. 2021-04-09 EXAM: Pelvis AP DX, Femur series DX [place] 17:04:18-00:00 DATE: 04/09/2021 15:55 CDT. INDICATION: - fracture. COMPARISON: CT abdomen and pelvis from . TECHNIQUE: Frontal pelvis. FINDINGS: * Acute minimally displaced left intertrochanter ic fracture. * Mild degenerative changes of both hips. * Moderate regional soft tissue swelling. IMPRESSION: Acute minimally displaced intertrochanteric frac ture of the left hip. 2021-04-09 EXAM: Pelvis AP DX, Femur series DX [place] 17:04:18-00:00 DATE: 04/09/2021 15:55 CDT. INDICATION: - fracture. COMPARISON: CT abdomen and pelvis from . TECHNIQUE: Frontal pelvis. FINDINGS: * Acute minimally displaced left intertrochanter ic fracture. * Mild degenerative changes of both hips. * Moderate regional soft tissue swelling. IMPRESSION: Acute minimally displaced intertrochanteric frac ture of the left hip. 2021-04-09 EXAM: Pelvis AP DX, Femur series DX [place] 17:04:18-00:00 DATE: 04/09/2021 15:55 CDT. INDICATION: - fracture. COMPARISON: CT abdomen and pelvis from . TECHNIQUE: Frontal pelvis. FINDINGS: * Acute minimally displaced left intertrochanter ic fracture. * Mild degenerative changes of both hips. * Moderate regional soft tissue swelling. IMPRESSION: Acute minimally displaced intertrochanteric frac ture of the left hip. 2021-04-09 EXAM: Pelvis AP DX, Femur series DX [place] 17:04:18-00:00 DATE: 04/09/2021 15:55 CDT. INDICATION: - fracture. COMPARISON: CT abdomen and pelvis from . TECHNIQUE: Frontal pelvis. FINDINGS: * Acute minimally displaced left intertrochanter ic fracture. * Mild degenerative changes of both hips. * Moderate regional soft tissue swelling. IMPRESSION: Acute minimally displaced intertrochanteric frac ture of the left hip. 2021-04-09 EXAM: Pelvis AP DX, Femur series DX [place] 17:04:18-00:00 DATE: 04/09/2021 15:55 CDT. INDICATION: - fracture. COMPARISON: CT abdomen and pelvis from . TECHNIQUE: Frontal pelvis. FINDINGS: * Acute minimally displaced left intertrochanter ic fracture. * Mild degenerative changes of both hips. * Moderate regional soft tissue swelling. IMPRESSION: Acute minimally displaced intertrochanteric frac ture of the left hip. 2021-04-09 EXAM: Pelvis AP DX, Femur series DX [place] 17:04:18-00:00 DATE: 04/09/2021 15:55 CDT. INDICATION: - fracture. COMPARISON: CT abdomen and pelvis from . TECHNIQUE: Frontal pelvis. FINDINGS: * Acute minimally displaced left intertrochanter ic fracture. * Mild degenerative changes of both hips. * Moderate regional soft tissue swelling. IMPRESSION: Acute minimally displaced intertrochanteric frac ture of the left hip. 2021-04-09 EXAM: Pelvis AP DX, Femur series DX [place] 17:04:08-00:00 DATE: 04/09/2021 15:55 CDT. INDICATION: - fracture. COMPARISON: CT abdomen and pelvis from . TECHNIQUE: Frontal pelvis. FINDINGS: * Acute minimally displaced left intertrochanter ic fracture. * Mild degenerative changes of both hips. * Moderate regional soft tissue swelling. IMPRESSION: Acute minimally displaced intertrochanteric frac ture of the left hip. 2021-04-09 EXAM: Pelvis AP DX, Femur series DX [place] 17:04:08-00:00 DATE: 04/09/2021 15:55 CDT. INDICATION: - fracture. COMPARISON: CT abdomen and pelvis from . TECHNIQUE: Frontal pelvis. FINDINGS: * Acute minimally displaced left intertrochanter ic fracture. * Mild degenerative changes of both hips. * Moderate regional soft tissue swelling. IMPRESSION: Acute minimally displaced intertrochanteric frac ture of the left hip. 2021-04-09 EXAM: Pelvis AP DX, Femur series DX [place] 17:04:08-00:00 DATE: 04/09/2021 15:55 CDT. INDICATION: - fracture. COMPARISON: CT abdomen and pelvis from . TECHNIQUE: Frontal pelvis. FINDINGS: * Acute minimally displaced left intertrochanter ic fracture. * Mild degenerative changes of both hips. * Moderate regional soft tissue swelling. IMPRESSION: Acute minimally displaced intertrochanteric frac ture of the left hip. 2021-04-09 EXAM: Pelvis AP DX, Femur series DX [place] 17:04:08-00:00 DATE: 04/09/2021 15:55 CDT. INDICATION: - fracture. COMPARISON: CT abdomen and pelvis from . TECHNIQUE: Frontal pelvis. FINDINGS: * Acute minimally displaced left intertrochanter ic fracture. * Mild degenerative changes of both hips. * Moderate regional soft tissue swelling. IMPRESSION: Acute minimally displaced intertrochanteric frac ture of the left hip. 2021-04-09 EXAM: Pelvis AP DX, Femur series DX [place] 17:04:08-00:00 DATE: 04/09/2021 15:55 CDT. INDICATION: - fracture. COMPARISON: CT abdomen and pelvis from . TECHNIQUE: Frontal pelvis. FINDINGS: * Acute minimally displaced left intertrochanter ic fracture. * Mild degenerative changes of both hips. * Moderate regional soft tissue swelling. IMPRESSION: Acute minimally displaced intertrochanteric frac ture of the left hip. 2021-04-09 EXAM: Pelvis AP DX, Femur series DX [place] 17:04:08-00:00 DATE: 04/09/2021 15:55 CDT. INDICATION: - fracture. COMPARISON: CT abdomen and pelvis from . TECHNIQUE: Frontal pelvis. FINDINGS: * Acute minimally displaced left intertrochanter ic fracture. * Mild degenerative changes of both hips. * Moderate regional soft tissue swelling. IMPRESSION: Acute minimally displaced intertrochanteric frac ture of the left hip. 2021-04-09 EXAM: Pelvis AP DX, Femur series DX [place] 17:04:08-00:00 DATE: 04/09/2021 15:55 CDT. INDICATION: - fracture. COMPARISON: CT abdomen and pelvis from . TECHNIQUE: Frontal pelvis. FINDINGS: * Acute minimally displaced left intertrochanter ic fracture. * Mild degenerative changes of both hips. * Moderate regional soft tissue swelling. IMPRESSION: Acute minimally displaced intertrochanteric frac ture of the left hip. 2021-04-09 EXAM: Pelvis AP DX, Femur series DX [place] 17:04:08-00:00 DATE: 04/09/2021 15:55 CDT. INDICATION: - fracture. COMPARISON: CT abdomen and pelvis from . TECHNIQUE: Frontal pelvis. FINDINGS: * Acute minimally displaced left intertrochanter ic fracture. * Mild degenerative changes of both hips. * Moderate regional soft tissue swelling. IMPRESSION: Acute minimally displaced intertrochanteric frac ture of the left hip. 2021-04-09 EXAM: Pelvis AP DX, Femur series DX [place] 17:04:08-00:00 DATE: 04/09/2021 15:55 CDT. INDICATION: - fracture. COMPARISON: CT abdomen and pelvis from . TECHNIQUE: Frontal pelvis. FINDINGS: * Acute minimally displaced left intertrochanter ic fracture. * Mild degenerative changes of both hips. * Moderate regional soft tissue swelling. IMPRESSION: Acute minimally displaced intertrochanteric frac ture of the left hip. 2021-04-09 EXAM: Pelvis AP DX, Femur series DX [place] 17:04:08-00:00 DATE: 04/09/2021 15:55 CDT. INDICATION: - fracture. COMPARISON: CT abdomen and pelvis from . TECHNIQUE: Frontal pelvis. FINDINGS: * Acute minimally displaced left intertrochanter ic fracture. * Mild degenerative changes of both hips. * Moderate regional soft tissue swelling. IMPRESSION: Acute minimally displaced intertrochanteric frac ture of the left hip. 2021-04-09 EXAM: Pelvis AP DX, Femur series DX [place] 17:04:08-00:00 DATE: 04/09/2021 15:55 CDT. INDICATION: - fracture. COMPARISON: CT abdomen and pelvis from . TECHNIQUE: Frontal pelvis. FINDINGS: * Acute minimally displaced left intertrochanter ic fracture. * Mild degenerative changes of both hips. * Moderate regional soft tissue swelling. IMPRESSION: Acute minimally displaced intertrochanteric frac ture of the left hip. 2021-04-09 EXAM: Pelvis AP DX, Femur series DX [place] 17:04:08-00:00 DATE: 04/09/2021 15:55 CDT. INDICATION: - fracture. COMPARISON: CT abdomen and pelvis from . TECHNIQUE: Frontal pelvis. FINDINGS: * Acute minimally displaced left intertrochanter ic fracture. * Mild degenerative changes of both hips. * Moderate regional soft tissue swelling. IMPRESSION: Acute minimally displaced intertrochanteric frac ture of the left hip. 2021-04-09 EXAM: Pelvis AP DX, Femur series DX [place] 17:04:08-00:00 DATE: 04/09/2021 15:55 CDT. INDICATION: - fracture. COMPARISON: CT abdomen and pelvis from . TECHNIQUE: Frontal pelvis. FINDINGS: * Acute minimally displaced left intertrochanter ic fracture. * Mild degenerative changes of both hips. * Moderate regional soft tissue swelling. IMPRESSION: Acute minimally displaced intertrochanteric frac ture of the left hip. 2021-04-09 EXAM: Pelvis AP DX, Femur series DX [place] 17:04:08-00:00 DATE: 04/09/2021 15:55 CDT. INDICATION: - fracture. COMPARISON: CT abdomen and pelvis from . TECHNIQUE: Frontal pelvis. FINDINGS: * Acute minimally displaced left intertrochanter ic fracture. * Mild degenerative changes of both hips. * Moderate regional soft tissue swelling. IMPRESSION: Acute minimally displaced intertrochanteric frac ture of the left hip. 2021-04-09 EXAM: Pelvis AP DX, Femur series DX [place] 17:04:08-00:00 DATE: 04/09/2021 15:55 CDT. INDICATION: - fracture. COMPARISON: CT abdomen and pelvis from . TECHNIQUE: Frontal pelvis. FINDINGS: * Acute minimally displaced left intertrochanter ic fracture. * Mild degenerative changes of both hips. * Moderate regional soft tissue swelling. IMPRESSION: Acute minimally displaced intertrochanteric frac ture of the left hip. 2021-04-09 EXAM: Pelvis AP DX, Femur series DX [place] 17:04:08-00:00 DATE: 04/09/2021 15:55 CDT. INDICATION: - fracture. COMPARISON: CT abdomen and pelvis from . TECHNIQUE: Frontal pelvis. FINDINGS: * Acute minimally displaced left intertrochanter ic fracture. * Mild degenerative changes of both hips. * Moderate regional soft tissue swelling. IMPRESSION: Acute minimally displaced intertrochanteric frac ture of the left hip. 2021-04-09 EXAM: Pelvis AP DX, Femur series DX [place] 17:04:08-00:00 DATE: 04/09/2021 15:55 CDT. INDICATION: - fracture. COMPARISON: CT abdomen and pelvis from . TECHNIQUE: Frontal pelvis. FINDINGS: * Acute minimally displaced left intertrochanter ic fracture. * Mild degenerative changes of both hips. * Moderate regional soft tissue swelling. IMPRESSION: Acute minimally displaced intertrochanteric frac ture of the left hip. 2021-04-09 EXAM: Pelvis AP DX, Femur series DX [place] 17:04:08-00:00 DATE: 04/09/2021 15:55 CDT. INDICATION: - fracture. COMPARISON: CT abdomen and pelvis from . TECHNIQUE: Frontal pelvis. FINDINGS: * Acute minimally displaced left intertrochanter ic fracture. * Mild degenerative changes of both hips. * Moderate regional soft tissue swelling. IMPRESSION: Acute minimally displaced intertrochanteric frac ture of the left hip. 2021-04-09 EXAM: Pelvis AP DX, Femur series DX [facility] 17:04:08-00:00 DATE: 04/09/2021 15:55 CDT. INDICATION: - fracture. COMPARISON: CT abdomen and pelvis from . TECHNIQUE: Frontal pelvis. FINDINGS: * Acute minimally displaced left intertrochanter ic fracture. * Mild degenerative changes of both hips. * Moderate regional soft tissue swelling. IMPRESSION: Acute minimally displaced intertrochanteric frac ture of the left hip. 2021-02-09 Radiation Dose CTDIVOL = 0 (mGy): DLP = 982.82 ( mGy-cm) [facility] 22:56:53-00:00 PROCEDURE INFORMATION: Exam: CT Head Without Contrast Exam date and time: 02/09/2021 11:02 PM Age: 70 years old Clinical indication: Syncope and collapse; Addit ional info: /syncope TECHNIQUE: Imaging protocol: Computed tomography of the hea d without contrast. Radiation optimization: All CT scans at this facility use at least one of these dose optimization techniques: automated exposure control; mA and/or kV adjustment per patient size (includes targeted e xams where dose is matched to clinical indication); or iterative reconstructio n. COMPARISON: No relevant prior studies available. 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 No defi nite acute transcortical infarct. No intracranial hemorrhage or significa nt fluid collection. No brain parenchymal contusion or madan ma. No intracranial mass. No significant effacement of the basal cisterns or foramen magnum. Age-con sistent global parenchymal volume. Cerebral ventricles: No hydrocephalus. Paranasal sinuses: Visualized sinuses are unrema rkable. No fluid levels. Mastoid air cells: No significant fluid in the i francse mastoid air cells. Bones/joints: No significant abnormality of the calvarium or skull base. Soft tissues: Unremarkable. IMPRESSION: 1. Mild-moderate chronic microangiopathic ischem ic gliosis. 2. No acute intracranial abnormality. COMMENTS: MR is more sensitive for sub tle intracranial abnormality and may be helpful for further assessment if clinically appropriate. Marvin Cabral MD On 02/09/2021 23:32:00; ALBINO [id number] 2021-02-09 Radiation Dose CTDIVOL = 0 (mGy): DLP = 1319.12 (mGy-cm) [facility] 22:56:53-00:00 PROCEDURE INFORMATION: Exam: CT Abdomen And Pelvis With Contrast Exam date and time: 02/09/2021 11:04 PM Age: 70 years old Clinical indication: Abdominal pain; Epigastric; Additional info: /lap band patient, PT only able to dri nk a few sips of oral contrast a few minutes before scan. TECHNIQUE: Imaging protocol: Computed tomography of the abdomen and pelvis with contrast. Radiation optimization: All CT scans at this facility use at least one of these dose optimization techniques: automated exposure control; mA and/or kV adjustment per patient size (includes targeted e xams where dose is matched to clinical indication); or iterative reconstructio n. Contrast material: OMNI; Contrast volume: 80 ml; Contrast route: INTRAVENOUS (IV); Other contrast: Oral, Omni, 20; COMPARISON: ABDOMEN W IV CONTRAST CT 12/22/2020 9:22 AM RADIATION DOSE METRICS: Total DLP (mGy-cm): 1319.12 FINDINGS: Lungs: Mild bilateral basilar subsegmental atele ctasis and scarring. Small calcified granuloma in the right lung base. Heart: Normal size heart. Mediastinal space: Stable moderate sized hiatal hernia with a very thickened irregular wall worrisome for inflammation or esau plasm. Liver: Mildly diffusely enlarged liver measuring 20.1 cm maximum craniocaudal dimension. No focal hepatic lesion is appreciate d. Gallbladder and bile ducts: Postoperative changes of cholecystectomy associated with prominent central bile ducts likely physiol ogical in nature related to reservoir effect. Pancreas: Normal. No ductal dilation. Spleen: Normal size and attenuation without foca l lesion. Adrenal glands: Normal. No mass. Kidneys and ureters: Mild bilateral renal cortic al atrophy associated with right renal cortical scarring in the mid to infe rior pole. No urolithiasis, hydronephrosis, or suspicious focal lesion. Stomach and bowel: The remaining stomach is unde r distended and thick-walled. Mild constipation associated with an oth erwise non-specific bowel gas pattern. Suspect low-attenuation bila teral ovarian cystic lesions measuring up to 3.0 cm on the right and 3.6 cm on the left somewhat dif ficult to differentiate from adjacent fluid-filled small bowel loops. Appendix: Normal appendix. Intraperitoneal space: Felicitas l without free air or significant fluid collection. Vasculature: Normal caliber mildly atherosclerot ic abdominal aorta. Lymph nodes: Scattered subcentimeter central mes enteric and retroperitoneal lymph nodes without lymphadenopathy or mass. Urinary bladder: Contracted thick-walled urinary bladder with a lobulated mildly hyperattenuating focu s measuring up to 11 mm involving the anterior dome of the urinary bladder either representing artif act or focal lesion. Reproductive: Normal retroverted uterus. Bones/joints: Mild lumbar sp ondylosis and facet joint arthrosis greatest in the mid and lower lumbar spine. No acute fracture or dislocation. Soft tissues: Tiny fat containing umbilical nestor ia. IMPRESSION: 1. Stable moderate sized hiatal hernia with a ve ry thickened irregular wall worrisome for inflammation or neoplasm. Follow-u p upper GI or endoscopy would be helpful. 2. Mild constipation associated with an otherwis e non-specific bowel gas pattern. 3. Contracted thick-walled urinary bladder with a lobulated mildly hyperattenuating focus measu ring up to 11 mm involving the anterior dome of the urinary bladder either representing artifact or focal lesion. Follow-up ultrasound during adequate distension would be h elpful. 4. Suspect low-attenuation bilateral ovarian cys ts measuring 3.0 cm on the right and 3.6 cm on the left. Follow-up pelvic u ltrasound would be helpful. 5. Mild hepatomegaly. 6. Postoperative changes of cholecystectomy asso ciated with prominent central bile ducts likely physiological in nature relate d to reservoir effect. Elmer Jaeger MD On 02/09/2021 23:42:29; MICHAEL [id number] 2021-02-09 Radiation Dose CTDIVOL = 0 (mGy): DLP = 982.82 ( mGy-cm) [facility] 22:56:53-00:00 PROCEDURE INFORMATION: Exam: CT Head Without Contrast Exam date and time: 02/09/2021 11:02 PM Age: 70 years old Clinical indication: Syncope and collapse; Addit ional info: /syncope TECHNIQUE: Imaging protocol: Computed tomography of the hea d without contrast. Radiation optimization: All CT scans at this facility use at least one of these dose optimization techniques: automated exposure control; mA and/or kV adjustment per patient size (includes targeted e xams where dose is matched to clinical indication); or iterative reconstructio n. COMPARISON: No relevant prior studies available. 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 No defi nite acute transcortical infarct. No intracranial hemorrhage or significa nt fluid collection. No brain parenchymal contusion or madan ma. No intracranial mass. No significant effacement of the basal cisterns or foramen magnum. Age-con sistent global parenchymal volume. Cerebral ventricles: No hydrocephalus. Paranasal sinuses: Visualized sinuses are unrema rkable. No fluid levels. Mastoid air cells: No significant fluid in the i frances mastoid air cells. Bones/joints: No significant abnormality of the calvarium or skull base. Soft tissues: Unremarkable. IMPRESSION: 1. Mild-moderate chronic microangiopathic ischem ic gliosis. 2. No acute intracranial abnormality. COMMENTS: MR is more sensitive for sub tle intracranial abnormality and may be helpful for further assessment if clinically appropriate. Marvin Cabral MD On 02/09/2021 23:32:00; ALBINO [id number] 2021-02-09 Radiation Dose CTDIVOL = 0 (mGy): DLP = 1319.12 (mGy-cm) [facility] 22:56:53-00:00 PROCEDURE INFORMATION: Exam: CT Abdomen And Pelvis With Contrast Exam date and time: 02/09/2021 11:04 PM Age: 70 years old Clinical indication: Abdominal pain; Epigastric; Additional info: /lap band patient, PT only able to dri nk a few sips of oral contrast a few minutes before scan. TECHNIQUE: Imaging protocol: Computed tomography of the abdomen and pelvis with contrast. Radiation optimization: All CT scans at this facility use at least one of these dose optimization techniques: automated exposure control; mA and/or kV adjustment per patient size (includes targeted e xams where dose is matched to clinical indication); or iterative reconstructio n. Contrast material: OMNI; Contrast volume: 80 ml; Contrast route: INTRAVENOUS (IV); Other contrast: Oral, Omni, 20; COMPARISON: ABDOMEN W IV CONTRAST CT 12/22/2020 9:22 AM RADIATION DOSE METRICS: Total DLP (mGy-cm): 1319.12 FINDINGS: Lungs: Mild bilateral basilar subsegmental atele ctasis and scarring. Small calcified granuloma in the right lung base. Heart: Normal size heart. Mediastinal space: Stable moderate sized hiatal hernia with a very thickened irregular wall worrisome for inflammation or esau plasm. Liver: Mildly diffusely enlarged liver measuring 20.1 cm maximum craniocaudal dimension. No focal hepatic lesion is appreciate d. Gallbladder and bile ducts: Postoperative changes of cholecystectomy associated with prominent central bile ducts likely physiol ogical in nature related to reservoir effect. Pancreas: Normal. No ductal dilation. Spleen: Normal size and attenuation without foca l lesion. Adrenal glands: Normal. No mass. Kidneys and ureters: Mild bilateral renal cortic al atrophy associated with right renal cortical scarring in the mid to infe rior pole. No urolithiasis, hydronephrosis, or suspicious focal lesion. Stomach and bowel: The remaining stomach is unde r distended and thick-walled. Mild constipation associated with an oth erwise non-specific bowel gas pattern. Suspect low-attenuation bila teral ovarian cystic lesions measuring up to 3.0 cm on the right and 3.6 cm on the left somewhat dif ficult to differentiate from adjacent fluid-filled small bowel loops. Appendix: Normal appendix. Intraperitoneal space: Felicitas l without free air or significant fluid collection. Vasculature: Normal caliber mildly atherosclerot ic abdominal aorta. Lymph nodes: Scattered subcentimeter central mes enteric and retroperitoneal lymph nodes without lymphadenopathy or mass. Urinary bladder: Contracted thick-walled urinary bladder with a lobulated mildly hyperattenuating focu s measuring up to 11 mm involving the anterior dome of the urinary bladder either representing artif act or focal lesion. Reproductive: Normal retroverted uterus. Bones/joints: Mild lumbar sp ondylosis and facet joint arthrosis greatest in the mid and lower lumbar spine. No acute fracture or dislocation. Soft tissues: Tiny fat containing umbilical nestor ia. IMPRESSION: 1. Stable moderate sized hiatal hernia with a ve ry thickened irregular wall worrisome for inflammation or neoplasm. Follow-u p upper GI or endoscopy would be helpful. 2. Mild constipation associated with an otherwis e non-specific bowel gas pattern. 3. Contracted thick-walled urinary bladder with a lobulated mildly hyperattenuating focus measu ring up to 11 mm involving the anterior dome of the urinary bladder either representing artifact or focal lesion. Follow-up ultrasound during adequate distension would be h elpful. 4. Suspect low-attenuation bilateral ovarian cys ts measuring 3.0 cm on the right and 3.6 cm on the left. Follow-up pelvic u ltrasound would be helpful. 5. Mild hepatomegaly. 6. Postoperative changes of cholecystectomy asso ciated with prominent central bile ducts likely physiological in nature relate d to reservoir effect. Elmer Jaeger MD On 02/09/2021 23:42:29; MICHAEL [id number] 2021-02-09 Radiation Dose CTDIVOL = 0 (mGy): DLP = 982.82 ( mGy-cm) [facility] 22:56:53-00:00 PROCEDURE INFORMATION: Exam: CT Head Without Contrast Exam date and time: 02/09/2021 11:02 PM Age: 70 years old Clinical indication: Syncope and collapse; Addit ional info: /syncope TECHNIQUE: Imaging protocol: Computed tomography of the hea d without contrast. Radiation optimization: All CT scans at this facility use at least one of these dose optimization techniques: automated exposure control; mA and/or kV adjustment per patient size (includes targeted e xams where dose is matched to clinical indication); or iterative reconstructio n. COMPARISON: No relevant prior studies available. 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 No defi nite acute transcortical infarct. No intracranial hemorrhage or significa nt fluid collection. No brain parenchymal contusion or madan ma. No intracranial mass. No significant effacement of the basal cisterns or foramen magnum. Age-con sistent global parenchymal volume. Cerebral ventricles: No hydrocephalus. Paranasal sinuses: Visualized sinuses are unrema rkable. No fluid levels. Mastoid air cells: No significant fluid in the i frances mastoid air cells. Bones/joints: No significant abnormality of the calvarium or skull base. Soft tissues: Unremarkable. IMPRESSION: 1. Mild-moderate chronic microangiopathic ischem ic gliosis. 2. No acute intracranial abnormality. COMMENTS: MR is more sensitive for sub tle intracranial abnormality and may be helpful for further assessment if clinically appropriate. Marvin Cabral MD On 02/09/2021 23:32:00; VR-SNY [id number] 2021-02-09 Radiation Dose CTDIVOL = 0 (mGy): DLP = 1319.12 (mGy-cm) [facility] 22:56:53-00:00 PROCEDURE INFORMATION: Exam: CT Abdomen And Pelvis With Contrast Exam date and time: 02/09/2021 11:04 PM Age: 70 years old Clinical indication: Abdominal pain; Epigastric; Additional info: /lap band patient, PT only able to dri nk a few sips of oral contrast a few minutes before scan. TECHNIQUE: Imaging protocol: Computed tomography of the abdomen and pelvis with contrast. Radiation optimization: All CT scans at this facility use at least one of these dose optimization techniques: automated exposure control; mA and/or kV adjustment per patient size (includes targeted e xams where dose is matched to clinical indication); or iterative reconstructio n. Contrast material: OMNI; Contrast volume: 80 ml; Contrast route: INTRAVENOUS (IV); Other contrast: Oral, Omni, 20; COMPARISON: ABDOMEN W IV CONTRAST CT 12/22/2020 9:22 AM RADIATION DOSE METRICS: Total DLP (mGy-cm): 1319.12 FINDINGS: Lungs: Mild bilateral basilar subsegmental atele ctasis and scarring. Small calcified granuloma in the right lung base. Heart: Normal size heart. Mediastinal space: Stable moderate sized hiatal hernia with a very thickened irregular wall worrisome for inflammation or esau plasm. Liver: Mildly diffusely enlarged liver measuring 20.1 cm maximum craniocaudal dimension. No focal hepatic lesion is appreciate d. Gallbladder and bile ducts: Postoperative changes of cholecystectomy associated with prominent central bile ducts likely physiol ogical in nature related to reservoir effect. Pancreas: Normal. No ductal dilation. Spleen: Normal size and attenuation without foca l lesion. Adrenal glands: Normal. No mass. Kidneys and ureters: Mild bilateral renal cortic al atrophy associated with right renal cortical scarring in the mid to infe rior pole. No urolithiasis, hydronephrosis, or suspicious focal lesion. Stomach and bowel: The remaining stomach is unde r distended and thick-walled. Mild constipation associated with an oth erwise non-specific bowel gas pattern. Suspect low-attenuation bila teral ovarian cystic lesions measuring up to 3.0 cm on the right and 3.6 cm on the left somewhat dif ficult to differentiate from adjacent fluid-filled small bowel loops. Appendix: Normal appendix. Intraperitoneal space: Felicitas l without free air or significant fluid collection. Vasculature: Normal caliber mildly atherosclerot ic abdominal aorta. Lymph nodes: Scattered subcentimeter central mes enteric and retroperitoneal lymph nodes without lymphadenopathy or mass. Urinary bladder: Contracted thick-walled urinary bladder with a lobulated mildly hyperattenuating focu s measuring up to 11 mm involving the anterior dome of the urinary bladder either representing artif act or focal lesion. Reproductive: Normal retroverted uterus. Bones/joints: Mild lumbar sp ondylosis and facet joint arthrosis greatest in the mid and lower lumbar spine. No acute fracture or dislocation. Soft tissues: Tiny fat containing umbilical nestor ia. IMPRESSION: 1. Stable moderate sized hiatal hernia with a ve ry thickened irregular wall worrisome for inflammation or neoplasm. Follow-u p upper GI or endoscopy would be helpful. 2. Mild constipation associated with an otherwis e non-specific bowel gas pattern. 3. Contracted thick-walled urinary bladder with a lobulated mildly hyperattenuating focus measu ring up to 11 mm involving the anterior dome of the urinary bladder either representing artifact or focal lesion. Follow-up ultrasound during adequate distension would be h elpful. 4. Suspect low-attenuation bilateral ovarian cys ts measuring 3.0 cm on the right and 3.6 cm on the left. Follow-up pelvic u ltrasound would be helpful. 5. Mild hepatomegaly. 6. Postoperative changes of cholecystectomy asso ciated with prominent central bile ducts likely physiological in nature relate d to reservoir effect. Elmer Jaeger MD On 02/09/2021 23:42:29; MICHAEL [id number] 2021-02-09 Radiation Dose CTDIVOL = 0 (mGy): DLP = 982.82 ( mGy-cm) [facility] 22:56:53-00:00 PROCEDURE INFORMATION: Exam: CT Head Without Contrast Exam date and time: 02/09/2021 11:02 PM Age: 70 years old Clinical indication: Syncope and collapse; Addit ional info: /syncope TECHNIQUE: Imaging protocol: Computed tomography of the hea d without contrast. Radiation optimization: All CT scans at this facility use at least one of these dose optimization techniques: automated exposure control; mA and/or kV adjustment per patient size (includes targeted e xams where dose is matched to clinical indication); or iterative reconstructio n. COMPARISON: No relevant prior studies available. 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 No defi nite acute transcortical infarct. No intracranial hemorrhage or significa nt fluid collection. No brain parenchymal contusion or madan ma. No intracranial mass. No significant effacement of the basal cisterns or foramen magnum. Age-con sistent global parenchymal volume. Cerebral ventricles: No hydrocephalus. Paranasal sinuses: Visualized sinuses are unrema rkable. No fluid levels. Mastoid air cells: No significant fluid in the i frances mastoid air cells. Bones/joints: No significant abnormality of the calvarium or skull base. Soft tissues: Unremarkable. IMPRESSION: 1. Mild-moderate chronic microangiopathic ischem ic gliosis. 2. No acute intracranial abnormality. COMMENTS: MR is more sensitive for sub tle intracranial abnormality and may be helpful for further assessment if clinically appropriate. Marvin Cabral MD On 02/09/2021 23:32:00; MOHINI-LEONILA [id number] 2021-02-09 Radiation Dose CTDIVOL = 0 (mGy): DLP = 1319.12 (mGy-cm) [facility] 22:56:53-00:00 PROCEDURE INFORMATION: Exam: CT Abdomen And Pelvis With Contrast Exam date and time: 02/09/2021 11:04 PM Age: 70 years old Clinical indication: Abdominal pain; Epigastric; Additional info: /lap band patient, PT only able to dri nk a few sips of oral contrast a few minutes before scan. TECHNIQUE: Imaging protocol: Computed tomography of the abdomen and pelvis with contrast. Radiation optimization: All CT scans at this facility use at least one of these dose optimization techniques: automated exposure control; mA and/or kV adjustment per patient size (includes targeted e xams where dose is matched to clinical indication); or iterative reconstructio n. Contrast material: OMNI; Contrast volume: 80 ml; Contrast route: INTRAVENOUS (IV); Other contrast: Oral, Omni, 20; COMPARISON: ABDOMEN W IV CONTRAST CT 12/22/2020 9:22 AM RADIATION DOSE METRICS: Total DLP (mGy-cm): 1319.12 FINDINGS: Lungs: Mild bilateral basilar subsegmental atele ctasis and scarring. Small calcified granuloma in the right lung base. Heart: Normal size heart. Mediastinal space: Stable moderate sized hiatal hernia with a very thickened irregular wall worrisome for inflammation or esau plasm. Liver: Mildly diffusely enlarged liver measuring 20.1 cm maximum craniocaudal dimension. No focal hepatic lesion is appreciate d. Gallbladder and bile ducts: Postoperative changes of cholecystectomy associated with prominent central bile ducts likely physiol ogical in nature related to reservoir effect. Pancreas: Normal. No ductal dilation. Spleen: Normal size and attenuation without foca l lesion. Adrenal glands: Normal. No mass. Kidneys and ureters: Mild bilateral renal cortic al atrophy associated with right renal cortical scarring in the mid to infe rior pole. No urolithiasis, hydronephrosis, or suspicious focal lesion. Stomach and bowel: The remaining stomach is unde r distended and thick-walled. Mild constipation associated with an oth erwise non-specific bowel gas pattern. Suspect low-attenuation bila teral ovarian cystic lesions measuring up to 3.0 cm on the right and 3.6 cm on the left somewhat dif ficult to differentiate from adjacent fluid-filled small bowel loops. Appendix: Normal appendix. Intraperitoneal space: Felicitas l without free air or significant fluid collection. Vasculature: Normal caliber mildly atherosclerot ic abdominal aorta. Lymph nodes: Scattered subcentimeter central mes enteric and retroperitoneal lymph nodes without lymphadenopathy or mass. Urinary bladder: Contracted thick-walled urinary bladder with a lobulated mildly hyperattenuating focu s measuring up to 11 mm involving the anterior dome of the urinary bladder either representing artif act or focal lesion. Reproductive: Normal retroverted uterus. Bones/joints: Mild lumbar sp ondylosis and facet joint arthrosis greatest in the mid and lower lumbar spine. No acute fracture or dislocation. Soft tissues: Tiny fat containing umbilical nestor ia. IMPRESSION: 1. Stable moderate sized hiatal hernia with a ve ry thickened irregular wall worrisome for inflammation or neoplasm. Follow-u p upper GI or endoscopy would be helpful. 2. Mild constipation associated with an otherwis e non-specific bowel gas pattern. 3. Contracted thick-walled urinary bladder with a lobulated mildly hyperattenuating focus measu ring up to 11 mm involving the anterior dome of the urinary bladder either representing artifact or focal lesion. Follow-up ultrasound during adequate distension would be h elpful. 4. Suspect low-attenuation bilateral ovarian cys ts measuring 3.0 cm on the right and 3.6 cm on the left. Follow-up pelvic u ltrasound would be helpful. 5. Mild hepatomegaly. 6. Postoperative changes of cholecystectomy asso ciated with prominent central bile ducts likely physiological in nature relate d to reservoir effect. Elmer Jaeger MD On 02/09/2021 23:42:29; VR-TP [id number] 2021-02-09 Radiation Dose CTDIVOL = 0 (mGy): DLP = 982.82 ( mGy-cm) [facility] 22:56:53-00:00 PROCEDURE INFORMATION: Exam: CT Head Without Contrast Exam date and time: 02/09/2021 11:02 PM Age: 70 years old Clinical indication: Syncope and collapse; Addit ional info: /syncope TECHNIQUE: Imaging protocol: Computed tomography of the hea d without contrast. Radiation optimization: All CT scans at this facility use at least one of these dose optimization techniques: automated exposure control; mA and/or kV adjustment per patient size (includes targeted e xams where dose is matched to clinical indication); or iterative reconstructio n. COMPARISON: No relevant prior studies available. 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 No defi nite acute transcortical infarct. No intracranial hemorrhage or significa nt fluid collection. No brain parenchymal contusion or madan ma. No intracranial mass. No significant effacement of the basal cisterns or foramen magnum. Age-con sistent global parenchymal volume. Cerebral ventricles: No hydrocephalus. Paranasal sinuses: Visualized sinuses are unrema rkable. No fluid levels. Mastoid air cells: No significant fluid in the i frances mastoid air cells. Bones/joints: No significant abnormality of the calvarium or skull base. Soft tissues: Unremarkable. IMPRESSION: 1. Mild-moderate chronic microangiopathic ischem ic gliosis. 2. No acute intracranial abnormality. COMMENTS: MR is more sensitive for sub tle intracranial abnormality and may be helpful for further assessment if clinically appropriate. Marvin Cabral MD On 02/09/2021 23:32:00; ALBINO [id number] 2021-02-09 Radiation Dose CTDIVOL = 0 (mGy): DLP = 1319.12 (mGy-cm) [facility] 22:56:53-00:00 PROCEDURE INFORMATION: Exam: CT Abdomen And Pelvis With Contrast Exam date and time: 02/09/2021 11:04 PM Age: 70 years old Clinical indication: Abdominal pain; Epigastric; Additional info: /lap band patient, PT only able to dri nk a few sips of oral contrast a few minutes before scan. TECHNIQUE: Imaging protocol: Computed tomography of the abdomen and pelvis with contrast. Radiation optimization: All CT scans at this facility use at least one of these dose optimization techniques: automated exposure control; mA and/or kV adjustment per patient size (includes targeted e xams where dose is matched to clinical indication); or iterative reconstructio n. Contrast material: OMNI; Contrast volume: 80 ml; Contrast route: INTRAVENOUS (IV); Other contrast: Oral, Omni, 20; COMPARISON: ABDOMEN W IV CONTRAST CT 12/22/2020 9:22 AM RADIATION DOSE METRICS: Total DLP (mGy-cm): 1319.12 FINDINGS: Lungs: Mild bilateral basilar subsegmental atele ctasis and scarring. Small calcified granuloma in the right lung base. Heart: Normal size heart. Mediastinal space: Stable moderate sized hiatal hernia with a very thickened irregular wall worrisome for inflammation or esau plasm. Liver: Mildly diffusely enlarged liver measuring 20.1 cm maximum craniocaudal dimension. No focal hepatic lesion is appreciate d. Gallbladder and bile ducts: Postoperative changes of cholecystectomy associated with prominent central bile ducts likely physiol ogical in nature related to reservoir effect. Pancreas: Normal. No ductal dilation. Spleen: Normal size and attenuation without foca l lesion. Adrenal glands: Normal. No mass. Kidneys and ureters: Mild bilateral renal cortic al atrophy associated with right renal cortical scarring in the mid to infe rior pole. No urolithiasis, hydronephrosis, or suspicious focal lesion. Stomach and bowel: The remaining stomach is unde r distended and thick-walled. Mild constipation associated with an oth erwise non-specific bowel gas pattern. Suspect low-attenuation bila teral ovarian cystic lesions measuring up to 3.0 cm on the right and 3.6 cm on the left somewhat dif ficult to differentiate from adjacent fluid-filled small bowel loops. Appendix: Normal appendix. Intraperitoneal space: Felicitas l without free air or significant fluid collection. Vasculature: Normal caliber mildly atherosclerot ic abdominal aorta. Lymph nodes: Scattered subcentimeter central mes enteric and retroperitoneal lymph nodes without lymphadenopathy or mass. Urinary bladder: Contracted thick-walled urinary bladder with a lobulated mildly hyperattenuating focu s measuring up to 11 mm involving the anterior dome of the urinary bladder either representing artif act or focal lesion. Reproductive: Normal retroverted uterus. Bones/joints: Mild lumbar sp ondylosis and facet joint arthrosis greatest in the mid and lower lumbar spine. No acute fracture or dislocation. Soft tissues: Tiny fat containing umbilical nestor ia. IMPRESSION: 1. Stable moderate sized hiatal hernia with a ve ry thickened irregular wall worrisome for inflammation or neoplasm. Follow-u p upper GI or endoscopy would be helpful. 2. Mild constipation associated with an otherwis e non-specific bowel gas pattern. 3. Contracted thick-walled urinary bladder with a lobulated mildly hyperattenuating focus measu ring up to 11 mm involving the anterior dome of the urinary bladder either representing artifact or focal lesion. Follow-up ultrasound during adequate distension would be h elpful. 4. Suspect low-attenuation bilateral ovarian cys ts measuring 3.0 cm on the right and 3.6 cm on the left. Follow-up pelvic u ltrasound would be helpful. 5. Mild hepatomegaly. 6. Postoperative changes of cholecystectomy asso ciated with prominent central bile ducts likely physiological in nature relate d to reservoir effect. Elmer Jaeger MD On 02/09/2021 23:42:29; VR-TP [id number] 2021-02-09 Radiation Dose CTDIVOL = 0 (mGy): DLP = 982.82 ( mGy-cm) [facility] 22:56:53-00:00 PROCEDURE INFORMATION: Exam: CT Head Without Contrast Exam date and time: 02/09/2021 11:02 PM Age: 70 years old Clinical indication: Syncope and collapse; Addit ional info: /syncope TECHNIQUE: Imaging protocol: Computed tomography of the hea d without contrast. Radiation optimization: All CT scans at this facility use at least one of these dose optimization techniques: automated exposure control; mA and/or kV adjustment per patient size (includes targeted e xams where dose is matched to clinical indication); or iterative reconstructio n. COMPARISON: No relevant prior studies available. 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 No defi nite acute transcortical infarct. No intracranial hemorrhage or significa nt fluid collection. No brain parenchymal contusion or madan ma. No intracranial mass. No significant effacement of the basal cisterns or foramen magnum. Age-con sistent global parenchymal volume. Cerebral ventricles: No hydrocephalus. Paranasal sinuses: Visualized sinuses are unrema rkable. No fluid levels. Mastoid air cells: No significant fluid in the i frances mastoid air cells. Bones/joints: No significant abnormality of the calvarium or skull base. Soft tissues: Unremarkable. IMPRESSION: 1. Mild-moderate chronic microangiopathic ischem ic gliosis. 2. No acute intracranial abnormality. COMMENTS: MR is more sensitive for sub tle intracranial abnormality and may be helpful for further assessment if clinically appropriate. Marvin Cabral MD On 02/09/2021 23:32:00; ALBINO [id number] 2021-02-09 Radiation Dose CTDIVOL = 0 (mGy): DLP = 1319.12 (mGy-cm) [facility] 22:56:53-00:00 PROCEDURE INFORMATION: Exam: CT Abdomen And Pelvis With Contrast Exam date and time: 02/09/2021 11:04 PM Age: 70 years old Clinical indication: Abdominal pain; Epigastric; Additional info: /lap band patient, PT only able to dri nk a few sips of oral contrast a few minutes before scan. TECHNIQUE: Imaging protocol: Computed tomography of the abdomen and pelvis with contrast. Radiation optimization: All CT scans at this facility use at least one of these dose optimization techniques: automated exposure control; mA and/or kV adjustment per patient size (includes targeted e xams where dose is matched to clinical indication); or iterative reconstructio n. Contrast material: OMNI; Contrast volume: 80 ml; Contrast route: INTRAVENOUS (IV); Other contrast: Oral, Omni, 20; COMPARISON: ABDOMEN W IV CONTRAST CT 12/22/2020 9:22 AM RADIATION DOSE METRICS: Total DLP (mGy-cm): 1319.12 FINDINGS: Lungs: Mild bilateral basilar subsegmental atele ctasis and scarring. Small calcified granuloma in the right lung base. Heart: Normal size heart. Mediastinal space: Stable moderate sized hiatal hernia with a very thickened irregular wall worrisome for inflammation or esau plasm. Liver: Mildly diffusely enlarged liver measuring 20.1 cm maximum craniocaudal dimension. No focal hepatic lesion is appreciate d. Gallbladder and bile ducts: Postoperative changes of cholecystectomy associated with prominent central bile ducts likely physiol ogical in nature related to reservoir effect. Pancreas: Normal. No ductal dilation. Spleen: Normal size and attenuation without foca l lesion. Adrenal glands: Normal. No mass. Kidneys and ureters: Mild bilateral renal cortic al atrophy associated with right renal cortical scarring in the mid to infe rior pole. No urolithiasis, hydronephrosis, or suspicious focal lesion. Stomach and bowel: The remaining stomach is unde r distended and thick-walled. Mild constipation associated with an oth erwise non-specific bowel gas pattern. Suspect low-attenuation bila teral ovarian cystic lesions measuring up to 3.0 cm on the right and 3.6 cm on the left somewhat dif ficult to differentiate from adjacent fluid-filled small bowel loops. Appendix: Normal appendix. Intraperitoneal space: Felicitas l without free air or significant fluid collection. Vasculature: Normal caliber mildly atherosclerot ic abdominal aorta. Lymph nodes: Scattered subcentimeter central mes enteric and retroperitoneal lymph nodes without lymphadenopathy or mass. Urinary bladder: Contracted thick-walled urinary bladder with a lobulated mildly hyperattenuating focu s measuring up to 11 mm involving the anterior dome of the urinary bladder either representing artif act or focal lesion. Reproductive: Normal retroverted uterus. Bones/joints: Mild lumbar sp ondylosis and facet joint arthrosis greatest in the mid and lower lumbar spine. No acute fracture or dislocation. Soft tissues: Tiny fat containing umbilical nestor ia. IMPRESSION: 1. Stable moderate sized hiatal hernia with a ve ry thickened irregular wall worrisome for inflammation or neoplasm. Follow-u p upper GI or endoscopy would be helpful. 2. Mild constipation associated with an otherwis e non-specific bowel gas pattern. 3. Contracted thick-walled urinary bladder with a lobulated mildly hyperattenuating focus measu ring up to 11 mm involving the anterior dome of the urinary bladder either representing artifact or focal lesion. Follow-up ultrasound during adequate distension would be h elpful. 4. Suspect low-attenuation bilateral ovarian cys ts measuring 3.0 cm on the right and 3.6 cm on the left. Follow-up pelvic u ltrasound would be helpful. 5. Mild hepatomegaly. 6. Postoperative changes of cholecystectomy asso ciated with prominent central bile ducts likely physiological in nature relate d to reservoir effect. Elmer Jaeger MD On 02/09/2021 23:42:29; MICHAEL [id number] 2021-02-09 Radiation Dose CTDIVOL = 0 (mGy): DLP = 982.82 ( mGy-cm) [facility] 22:56:53-00:00 PROCEDURE INFORMATION: Exam: CT Head Without Contrast Exam date and time: 02/09/2021 11:02 PM Age: 70 years old Clinical indication: Syncope and collapse; Addit ional info: /syncope TECHNIQUE: Imaging protocol: Computed tomography of the hea d without contrast. Radiation optimization: All CT scans at this facility use at least one of these dose optimization techniques: automated exposure control; mA and/or kV adjustment per patient size (includes targeted e xams where dose is matched to clinical indication); or iterative reconstructio n. COMPARISON: No relevant prior studies available. 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 No defi nite acute transcortical infarct. No intracranial hemorrhage or significa nt fluid collection. No brain parenchymal contusion or mdaan ma. No intracranial mass. No significant effacement of the basal cisterns or foramen magnum. Age-con sistent global parenchymal volume. Cerebral ventricles: No hydrocephalus. Paranasal sinuses: Visualized sinuses are unrema rkable. No fluid levels. Mastoid air cells: No significant fluid in the i frances mastoid air cells. Bones/joints: No significant abnormality of the calvarium or skull base. Soft tissues: Unremarkable. IMPRESSION: 1. Mild-moderate chronic microangiopathic ischem ic gliosis. 2. No acute intracranial abnormality. COMMENTS: MR is more sensitive for sub tle intracranial abnormality and may be helpful for further assessment if clinically appropriate. Marvin Cabral MD On 02/09/2021 23:32:00; MOHINI-LEONILA [id number] 2021-02-09 Radiation Dose CTDIVOL = 0 (mGy): DLP = 1319.12 (mGy-cm) [facility] 22:56:53-00:00 PROCEDURE INFORMATION: Exam: CT Abdomen And Pelvis With Contrast Exam date and time: 02/09/2021 11:04 PM Age: 70 years old Clinical indication: Abdominal pain; Epigastric; Additional info: /lap band patient, PT only able to dri nk a few sips of oral contrast a few minutes before scan. TECHNIQUE: Imaging protocol: Computed tomography of the abdomen and pelvis with contrast. Radiation optimization: All CT scans at this facility use at least one of these dose optimization techniques: automated exposure control; mA and/or kV adjustment per patient size (includes targeted e xams where dose is matched to clinical indication); or iterative reconstructio n. Contrast material: OMNI; Contrast volume: 80 ml; Contrast route: INTRAVENOUS (IV); Other contrast: Oral, Omni, 20; COMPARISON: ABDOMEN W IV CONTRAST CT 12/22/2020 9:22 AM RADIATION DOSE METRICS: Total DLP (mGy-cm): 1319.12 FINDINGS: Lungs: Mild bilateral basilar subsegmental atele ctasis and scarring. Small calcified granuloma in the right lung base. Heart: Normal size heart. Mediastinal space: Stable moderate sized hiatal hernia with a very thickened irregular wall worrisome for inflammation or esau plasm. Liver: Mildly diffusely enlarged liver measuring 20.1 cm maximum craniocaudal dimension. No focal hepatic lesion is appreciate d. Gallbladder and bile ducts: Postoperative changes of cholecystectomy associated with prominent central bile ducts likely physiol ogical in nature related to reservoir effect. Pancreas: Normal. No ductal dilation. Spleen: Normal size and attenuation without foca l lesion. Adrenal glands: Normal. No mass. Kidneys and ureters: Mild bilateral renal cortic al atrophy associated with right renal cortical scarring in the mid to infe rior pole. No urolithiasis, hydronephrosis, or suspicious focal lesion. Stomach and bowel: The remaining stomach is unde r distended and thick-walled. Mild constipation associated with an oth erwise non-specific bowel gas pattern. Suspect low-attenuation bila teral ovarian cystic lesions measuring up to 3.0 cm on the right and 3.6 cm on the left somewhat dif ficult to differentiate from adjacent fluid-filled small bowel loops. Appendix: Normal appendix. Intraperitoneal space: Felicitas l without free air or significant fluid collection. Vasculature: Normal caliber mildly atherosclerot ic abdominal aorta. Lymph nodes: Scattered subcentimeter central mes enteric and retroperitoneal lymph nodes without lymphadenopathy or mass. Urinary bladder: Contracted thick-walled urinary bladder with a lobulated mildly hyperattenuating focu s measuring up to 11 mm involving the anterior dome of the urinary bladder either representing artif act or focal lesion. Reproductive: Normal retroverted uterus. Bones/joints: Mild lumbar sp ondylosis and facet joint arthrosis greatest in the mid and lower lumbar spine. No acute fracture or dislocation. Soft tissues: Tiny fat containing umbilical nestor ia. IMPRESSION: 1. Stable moderate sized hiatal hernia with a ve ry thickened irregular wall worrisome for inflammation or neoplasm. Follow-u p upper GI or endoscopy would be helpful. 2. Mild constipation associated with an otherwis e non-specific bowel gas pattern. 3. Contracted thick-walled urinary bladder with a lobulated mildly hyperattenuating focus measu ring up to 11 mm involving the anterior dome of the urinary bladder either representing artifact or focal lesion. Follow-up ultrasound during adequate distension would be h elpful. 4. Suspect low-attenuation bilateral ovarian cys ts measuring 3.0 cm on the right and 3.6 cm on the left. Follow-up pelvic u ltrasound would be helpful. 5. Mild hepatomegaly. 6. Postoperative changes of cholecystectomy asso ciated with prominent central bile ducts likely physiological in nature relate d to reservoir effect. Elmer Jaeger MD On 02/09/2021 23:42:29; MICHAEL [id number] 2021-02-09 Radiation Dose CTDIVOL = 0 (mGy): DLP = 982.82 ( mGy-cm) [facility] 22:56:53-00:00 PROCEDURE INFORMATION: Exam: CT Head Without Contrast Exam date and time: 02/09/2021 11:02 PM Age: 70 years old Clinical indication: Syncope and collapse; Addit ional info: /syncope TECHNIQUE: Imaging protocol: Computed tomography of the hea d without contrast. Radiation optimization: All CT scans at this facility use at least one of these dose optimization techniques: automated exposure control; mA and/or kV adjustment per patient size (includes targeted e xams where dose is matched to clinical indication); or iterative reconstructio n. COMPARISON: No relevant prior studies available. 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 No defi nite acute transcortical infarct. No intracranial hemorrhage or significa nt fluid collection. No brain parenchymal contusion or madan ma. No intracranial mass. No significant effacement of the basal cisterns or foramen magnum. Age-con sistent global parenchymal volume. Cerebral ventricles: No hydrocephalus. Paranasal sinuses: Visualized sinuses are unrema rkable. No fluid levels. Mastoid air cells: No significant fluid in the i frances mastoid air cells. Bones/joints: No significant abnormality of the calvarium or skull base. Soft tissues: Unremarkable. IMPRESSION: 1. Mild-moderate chronic microangiopathic ischem ic gliosis. 2. No acute intracranial abnormality. COMMENTS: MR is more sensitive for sub tle intracranial abnormality and may be helpful for further assessment if clinically appropriate. Marvin Cabral MD On 02/09/2021 23:32:00; ALBINO [id number] 2021-02-09 Radiation Dose CTDIVOL = 0 (mGy): DLP = 1319.12 (mGy-cm) [facility] 22:56:53-00:00 PROCEDURE INFORMATION: Exam: CT Abdomen And Pelvis With Contrast Exam date and time: 02/09/2021 11:04 PM Age: 70 years old Clinical indication: Abdominal pain; Epigastric; Additional info: /lap band patient, PT only able to dri nk a few sips of oral contrast a few minutes before scan. TECHNIQUE: Imaging protocol: Computed tomography of the abdomen and pelvis with contrast. Radiation optimization: All CT scans at this facility use at least one of these dose optimization techniques: automated exposure control; mA and/or kV adjustment per patient size (includes targeted e xams where dose is matched to clinical indication); or iterative reconstructio n. Contrast material: OMNI; Contrast volume: 80 ml; Contrast route: INTRAVENOUS (IV); Other contrast: Oral, Omni, 20; COMPARISON: ABDOMEN W IV CONTRAST CT 12/22/2020 9:22 AM RADIATION DOSE METRICS: Total DLP (mGy-cm): 1319.12 FINDINGS: Lungs: Mild bilateral basilar subsegmental atele ctasis and scarring. Small calcified granuloma in the right lung base. Heart: Normal size heart. Mediastinal space: Stable moderate sized hiatal hernia with a very thickened irregular wall worrisome for inflammation or esau plasm. Liver: Mildly diffusely enlarged liver measuring 20.1 cm maximum craniocaudal dimension. No focal hepatic lesion is appreciate d. Gallbladder and bile ducts: Postoperative changes of cholecystectomy associated with prominent central bile ducts likely physiol ogical in nature related to reservoir effect. Pancreas: Normal. No ductal dilation. Spleen: Normal size and attenuation without foca l lesion. Adrenal glands: Normal. No mass. Kidneys and ureters: Mild bilateral renal cortic al atrophy associated with right renal cortical scarring in the mid to infe rior pole. No urolithiasis, hydronephrosis, or suspicious focal lesion. Stomach and bowel: The remaining stomach is unde r distended and thick-walled. Mild constipation associated with an oth erwise non-specific bowel gas pattern. Suspect low-attenuation bila teral ovarian cystic lesions measuring up to 3.0 cm on the right and 3.6 cm on the left somewhat dif ficult to differentiate from adjacent fluid-filled small bowel loops. Appendix: Normal appendix. Intraperitoneal space: Felicitas l without free air or significant fluid collection. Vasculature: Normal caliber mildly atherosclerot ic abdominal aorta. Lymph nodes: Scattered subcentimeter central mes enteric and retroperitoneal lymph nodes without lymphadenopathy or mass. Urinary bladder: Contracted thick-walled urinary bladder with a lobulated mildly hyperattenuating focu s measuring up to 11 mm involving the anterior dome of the urinary bladder either representing artif act or focal lesion. Reproductive: Normal retroverted uterus. Bones/joints: Mild lumbar sp ondylosis and facet joint arthrosis greatest in the mid and lower lumbar spine. No acute fracture or dislocation. Soft tissues: Tiny fat containing umbilical nestor ia. IMPRESSION: 1. Stable moderate sized hiatal hernia with a ve ry thickened irregular wall worrisome for inflammation or neoplasm. Follow-u p upper GI or endoscopy would be helpful. 2. Mild constipation associated with an otherwis e non-specific bowel gas pattern. 3. Contracted thick-walled urinary bladder with a lobulated mildly hyperattenuating focus measu ring up to 11 mm involving the anterior dome of the urinary bladder either representing artifact or focal lesion. Follow-up ultrasound during adequate distension would be h elpful. 4. Suspect low-attenuation bilateral ovarian cys ts measuring 3.0 cm on the right and 3.6 cm on the left. Follow-up pelvic u ltrasound would be helpful. 5. Mild hepatomegaly. 6. Postoperative changes of cholecystectomy asso ciated with prominent central bile ducts likely physiological in nature relate d to reservoir effect. Elmer Jaeger MD On 02/09/2021 23:42:29; VR-TP [id number] 2021-02-09 Radiation Dose CTDIVOL = 0 (mGy): DLP = 982.82 ( mGy-cm) [facility] 22:56:53-00:00 PROCEDURE INFORMATION: Exam: CT Head Without Contrast Exam date and time: 02/09/2021 11:02 PM Age: 70 years old Clinical indication: Syncope and collapse; Addit ional info: /syncope TECHNIQUE: Imaging protocol: Computed tomography of the hea d without contrast. Radiation optimization: All CT scans at this facility use at least one of these dose optimization techniques: automated exposure control; mA and/or kV adjustment per patient size (includes targeted e xams where dose is matched to clinical indication); or iterative reconstructio n. COMPARISON: No relevant prior studies available. 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 No defi nite acute transcortical infarct. No intracranial hemorrhage or significa nt fluid collection. No brain parenchymal contusion or madan ma. No intracranial mass. No significant effacement of the basal cisterns or foramen magnum. Age-con sistent global parenchymal volume. Cerebral ventricles: No hydrocephalus. Paranasal sinuses: Visualized sinuses are unrema rkable. No fluid levels. Mastoid air cells: No significant fluid in the i frances mastoid air cells. Bones/joints: No significant abnormality of the calvarium or skull base. Soft tissues: Unremarkable. IMPRESSION: 1. Mild-moderate chronic microangiopathic ischem ic gliosis. 2. No acute intracranial abnormality. COMMENTS: MR is more sensitive for sub tle intracranial abnormality and may be helpful for further assessment if clinically appropriate. Marvin Cabral MD On 02/09/2021 23:32:00; VR-Y [id number] 2021-02-09 Radiation Dose CTDIVOL = 0 (mGy): DLP = 1319.12 (mGy-cm) [facility] 22:56:53-00:00 PROCEDURE INFORMATION: Exam: CT Abdomen And Pelvis With Contrast Exam date and time: 02/09/2021 11:04 PM Age: 70 years old Clinical indication: Abdominal pain; Epigastric; Additional info: /lap band patient, PT only able to dri nk a few sips of oral contrast a few minutes before scan. TECHNIQUE: Imaging protocol: Computed tomography of the abdomen and pelvis with contrast. Radiation optimization: All CT scans at this facility use at least one of these dose optimization techniques: automated exposure control; mA and/or kV adjustment per patient size (includes targeted e xams where dose is matched to clinical indication); or iterative reconstructio n. Contrast material: OMNI; Contrast volume: 80 ml; Contrast route: INTRAVENOUS (IV); Other contrast: Oral, Omni, 20; COMPARISON: ABDOMEN W IV CONTRAST CT 12/22/2020 9:22 AM RADIATION DOSE METRICS: Total DLP (mGy-cm): 1319.12 FINDINGS: Lungs: Mild bilateral basilar subsegmental atele ctasis and scarring. Small calcified granuloma in the right lung base. Heart: Normal size heart. Mediastinal space: Stable moderate sized hiatal hernia with a very thickened irregular wall worrisome for inflammation or esau plasm. Liver: Mildly diffusely enlarged liver measuring 20.1 cm maximum craniocaudal dimension. No focal hepatic lesion is appreciate d. Gallbladder and bile ducts: Postoperative changes of cholecystectomy associated with prominent central bile ducts likely physiol ogical in nature related to reservoir effect. Pancreas: Normal. No ductal dilation. Spleen: Normal size and attenuation without foca l lesion. Adrenal glands: Normal. No mass. Kidneys and ureters: Mild bilateral renal cortic al atrophy associated with right renal cortical scarring in the mid to infe rior pole. No urolithiasis, hydronephrosis, or suspicious focal lesion. Stomach and bowel: The remaining stomach is unde r distended and thick-walled. Mild constipation associated with an oth erwise non-specific bowel gas pattern. Suspect low-attenuation bila teral ovarian cystic lesions measuring up to 3.0 cm on the right and 3.6 cm on the left somewhat dif ficult to differentiate from adjacent fluid-filled small bowel loops. Appendix: Normal appendix. Intraperitoneal space: Felicitas l without free air or significant fluid collection. Vasculature: Normal caliber mildly atherosclerot ic abdominal aorta. Lymph nodes: Scattered subcentimeter central mes enteric and retroperitoneal lymph nodes without lymphadenopathy or mass. Urinary bladder: Contracted thick-walled urinary bladder with a lobulated mildly hyperattenuating focu s measuring up to 11 mm involving the anterior dome of the urinary bladder either representing artif act or focal lesion. Reproductive: Normal retroverted uterus. Bones/joints: Mild lumbar sp ondylosis and facet joint arthrosis greatest in the mid and lower lumbar spine. No acute fracture or dislocation. Soft tissues: Tiny fat containing umbilical nestor ia. IMPRESSION: 1. Stable moderate sized hiatal hernia with a ve ry thickened irregular wall worrisome for inflammation or neoplasm. Follow-u p upper GI or endoscopy would be helpful. 2. Mild constipation associated with an otherwis e non-specific bowel gas pattern. 3. Contracted thick-walled urinary bladder with a lobulated mildly hyperattenuating focus measu ring up to 11 mm involving the anterior dome of the urinary bladder either representing artifact or focal lesion. Follow-up ultrasound during adequate distension would be h elpful. 4. Suspect low-attenuation bilateral ovarian cys ts measuring 3.0 cm on the right and 3.6 cm on the left. Follow-up pelvic u ltrasound would be helpful. 5. Mild hepatomegaly. 6. Postoperative changes of cholecystectomy asso ciated with prominent central bile ducts likely physiological in nature relate d to reservoir effect. Elmer Jaeger MD On 02/09/2021 23:42:29; MICHAEL [id number] 2021-02-09 Radiation Dose CTDIVOL = 0 (mGy): DLP = 982.82 ( mGy-cm) [facility] 22:56:53-00:00 PROCEDURE INFORMATION: Exam: CT Head Without Contrast Exam date and time: 02/09/2021 11:02 PM Age: 70 years old Clinical indication: Syncope and collapse; Addit ional info: /syncope TECHNIQUE: Imaging protocol: Computed tomography of the hea d without contrast. Radiation optimization: All CT scans at this facility use at least one of these dose optimization techniques: automated exposure control; mA and/or kV adjustment per patient size (includes targeted e xams where dose is matched to clinical indication); or iterative reconstructio n. COMPARISON: No relevant prior studies available. 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 No defi nite acute transcortical infarct. No intracranial hemorrhage or significa nt fluid collection. No brain parenchymal contusion or madan ma. No intracranial mass. No significant effacement of the basal cisterns or foramen magnum. Age-con sistent global parenchymal volume. Cerebral ventricles: No hydrocephalus. Paranasal sinuses: Visualized sinuses are unrema rkable. No fluid levels. Mastoid air cells: No significant fluid in the i frances mastoid air cells. Bones/joints: No significant abnormality of the calvarium or skull base. Soft tissues: Unremarkable. IMPRESSION: 1. Mild-moderate chronic microangiopathic ischem ic gliosis. 2. No acute intracranial abnormality. COMMENTS: MR is more sensitive for sub tle intracranial abnormality and may be helpful for further assessment if clinically appropriate. Marvin Cabral MD On 02/09/2021 23:32:00; ALBINO [id number] 2021-02-09 Radiation Dose CTDIVOL = 0 (mGy): DLP = 1319.12 (mGy-cm) [facility] 22:56:53-00:00 PROCEDURE INFORMATION: Exam: CT Abdomen And Pelvis With Contrast Exam date and time: 02/09/2021 11:04 PM Age: 70 years old Clinical indication: Abdominal pain; Epigastric; Additional info: /lap band patient, PT only able to dri nk a few sips of oral contrast a few minutes before scan. TECHNIQUE: Imaging protocol: Computed tomography of the abdomen and pelvis with contrast. Radiation optimization: All CT scans at this facility use at least one of these dose optimization techniques: automated exposure control; mA and/or kV adjustment per patient size (includes targeted e xams where dose is matched to clinical indication); or iterative reconstructio n. Contrast material: OMNI; Contrast volume: 80 ml; Contrast route: INTRAVENOUS (IV); Other contrast: Oral, Omni, 20; COMPARISON: ABDOMEN W IV CONTRAST CT 12/22/2020 9:22 AM RADIATION DOSE METRICS: Total DLP (mGy-cm): 1319.12 FINDINGS: Lungs: Mild bilateral basilar subsegmental atele ctasis and scarring. Small calcified granuloma in the right lung base. Heart: Normal size heart. Mediastinal space: Stable moderate sized hiatal hernia with a very thickened irregular wall worrisome for inflammation or esau plasm. Liver: Mildly diffusely enlarged liver measuring 20.1 cm maximum craniocaudal dimension. No focal hepatic lesion is appreciate d. Gallbladder and bile ducts: Postoperative changes of cholecystectomy associated with prominent central bile ducts likely physiol ogical in nature related to reservoir effect. Pancreas: Normal. No ductal dilation. Spleen: Normal size and attenuation without foca l lesion. Adrenal glands: Normal. No mass. Kidneys and ureters: Mild bilateral renal cortic al atrophy associated with right renal cortical scarring in the mid to infe rior pole. No urolithiasis, hydronephrosis, or suspicious focal lesion. Stomach and bowel: The remaining stomach is unde r distended and thick-walled. Mild constipation associated with an oth erwise non-specific bowel gas pattern. Suspect low-attenuation bila teral ovarian cystic lesions measuring up to 3.0 cm on the right and 3.6 cm on the left somewhat dif ficult to differentiate from adjacent fluid-filled small bowel loops. Appendix: Normal appendix. Intraperitoneal space: Felicitas l without free air or significant fluid collection. Vasculature: Normal caliber mildly atherosclerot ic abdominal aorta. Lymph nodes: Scattered subcentimeter central mes enteric and retroperitoneal lymph nodes without lymphadenopathy or mass. Urinary bladder: Contracted thick-walled urinary bladder with a lobulated mildly hyperattenuating focu s measuring up to 11 mm involving the anterior dome of the urinary bladder either representing artif act or focal lesion. Reproductive: Normal retroverted uterus. Bones/joints: Mild lumbar sp ondylosis and facet joint arthrosis greatest in the mid and lower lumbar spine. No acute fracture or dislocation. Soft tissues: Tiny fat containing umbilical nestor ia. IMPRESSION: 1. Stable moderate sized hiatal hernia with a ve ry thickened irregular wall worrisome for inflammation or neoplasm. Follow-u p upper GI or endoscopy would be helpful. 2. Mild constipation associated with an otherwis e non-specific bowel gas pattern. 3. Contracted thick-walled urinary bladder with a lobulated mildly hyperattenuating focus measu ring up to 11 mm involving the anterior dome of the urinary bladder either representing artifact or focal lesion. Follow-up ultrasound during adequate distension would be h elpful. 4. Suspect low-attenuation bilateral ovarian cys ts measuring 3.0 cm on the right and 3.6 cm on the left. Follow-up pelvic u ltrasound would be helpful. 5. Mild hepatomegaly. 6. Postoperative changes of cholecystectomy asso ciated with prominent central bile ducts likely physiological in nature relate d to reservoir effect. Elmer Jaeger MD On 02/09/2021 23:42:29; VR-TP [id number] 2021-02-09 Radiation Dose CTDIVOL = 0 (mGy): DLP = 982.82 ( mGy-cm) [facility] 22:56:53-00:00 PROCEDURE INFORMATION: Exam: CT Head Without Contrast Exam date and time: 02/09/2021 11:02 PM Age: 70 years old Clinical indication: Syncope and collapse; Addit ional info: /syncope TECHNIQUE: Imaging protocol: Computed tomography of the hea d without contrast. Radiation optimization: All CT scans at this facility use at least one of these dose optimization techniques: automated exposure control; mA and/or kV adjustment per patient size (includes targeted e xams where dose is matched to clinical indication); or iterative reconstructio n. COMPARISON: No relevant prior studies available. 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 No defi nite acute transcortical infarct. No intracranial hemorrhage or significa nt fluid collection. No brain parenchymal contusion or madan ma. No intracranial mass. No significant effacement of the basal cisterns or foramen magnum. Age-con sistent global parenchymal volume. Cerebral ventricles: No hydrocephalus. Paranasal sinuses: Visualized sinuses are unrema rkable. No fluid levels. Mastoid air cells: No significant fluid in the i frances mastoid air cells. Bones/joints: No significant abnormality of the calvarium or skull base. Soft tissues: Unremarkable. IMPRESSION: 1. Mild-moderate chronic microangiopathic ischem ic gliosis. 2. No acute intracranial abnormality. COMMENTS: MR is more sensitive for sub tle intracranial abnormality and may be helpful for further assessment if clinically appropriate. Marvin Cabral MD On 02/09/2021 23:32:00; MOHINI-LEONILA [id number] 2021-02-09 Radiation Dose CTDIVOL = 0 (mGy): DLP = 1319.12 (mGy-cm) [facility] 22:56:53-00:00 PROCEDURE INFORMATION: Exam: CT Abdomen And Pelvis With Contrast Exam date and time: 02/09/2021 11:04 PM Age: 70 years old Clinical indication: Abdominal pain; Epigastric; Additional info: /lap band patient, PT only able to dri nk a few sips of oral contrast a few minutes before scan. TECHNIQUE: Imaging protocol: Computed tomography of the abdomen and pelvis with contrast. Radiation optimization: All CT scans at this facility use at least one of these dose optimization techniques: automated exposure control; mA and/or kV adjustment per patient size (includes targeted e xams where dose is matched to clinical indication); or iterative reconstructio n. Contrast material: OMNI; Contrast volume: 80 ml; Contrast route: INTRAVENOUS (IV); Other contrast: Oral, Omni, 20; COMPARISON: ABDOMEN W IV CONTRAST CT 12/22/2020 9:22 AM RADIATION DOSE METRICS: Total DLP (mGy-cm): 1319.12 FINDINGS: Lungs: Mild bilateral basilar subsegmental atele ctasis and scarring. Small calcified granuloma in the right lung base. Heart: Normal size heart. Mediastinal space: Stable moderate sized hiatal hernia with a very thickened irregular wall worrisome for inflammation or esau plasm. Liver: Mildly diffusely enlarged liver measuring 20.1 cm maximum craniocaudal dimension. No focal hepatic lesion is appreciate d. Gallbladder and bile ducts: Postoperative changes of cholecystectomy associated with prominent central bile ducts likely physiol ogical in nature related to reservoir effect. Pancreas: Normal. No ductal dilation. Spleen: Normal size and attenuation without foca l lesion. Adrenal glands: Normal. No mass. Kidneys and ureters: Mild bilateral renal cortic al atrophy associated with right renal cortical scarring in the mid to infe rior pole. No urolithiasis, hydronephrosis, or suspicious focal lesion. Stomach and bowel: The remaining stomach is unde r distended and thick-walled. Mild constipation associated with an oth erwise non-specific bowel gas pattern. Suspect low-attenuation bila teral ovarian cystic lesions measuring up to 3.0 cm on the right and 3.6 cm on the left somewhat dif ficult to differentiate from adjacent fluid-filled small bowel loops. Appendix: Normal appendix. Intraperitoneal space: Felicitas l without free air or significant fluid collection. Vasculature: Normal caliber mildly atherosclerot ic abdominal aorta. Lymph nodes: Scattered subcentimeter central mes enteric and retroperitoneal lymph nodes without lymphadenopathy or mass. Urinary bladder: Contracted thick-walled urinary bladder with a lobulated mildly hyperattenuating focu s measuring up to 11 mm involving the anterior dome of the urinary bladder either representing artif act or focal lesion. Reproductive: Normal retroverted uterus. Bones/joints: Mild lumbar sp ondylosis and facet joint arthrosis greatest in the mid and lower lumbar spine. No acute fracture or dislocation. Soft tissues: Tiny fat containing umbilical nestor ia. IMPRESSION: 1. Stable moderate sized hiatal hernia with a ve ry thickened irregular wall worrisome for inflammation or neoplasm. Follow-u p upper GI or endoscopy would be helpful. 2. Mild constipation associated with an otherwis e non-specific bowel gas pattern. 3. Contracted thick-walled urinary bladder with a lobulated mildly hyperattenuating focus measu ring up to 11 mm involving the anterior dome of the urinary bladder either representing artifact or focal lesion. Follow-up ultrasound during adequate distension would be h elpful. 4. Suspect low-attenuation bilateral ovarian cys ts measuring 3.0 cm on the right and 3.6 cm on the left. Follow-up pelvic u ltrasound would be helpful. 5. Mild hepatomegaly. 6. Postoperative changes of cholecystectomy asso ciated with prominent central bile ducts likely physiological in nature relate d to reservoir effect. Elmer Jaeger MD On 02/09/2021 23:42:29; MICHAEL [id number] 2021-02-09 Radiation Dose CTDIVOL = 0 (mGy): DLP = 982.82 ( mGy-cm) [facility] 22:56:53-00:00 PROCEDURE INFORMATION: Exam: CT Head Without Contrast Exam date and time: 02/09/2021 11:02 PM Age: 70 years old Clinical indication: Syncope and collapse; Addit ional info: /syncope TECHNIQUE: Imaging protocol: Computed tomography of the hea d without contrast. Radiation optimization: All CT scans at this facility use at least one of these dose optimization techniques: automated exposure control; mA and/or kV adjustment per patient size (includes targeted e xams where dose is matched to clinical indication); or iterative reconstructio n. COMPARISON: No relevant prior studies available. 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 No defi nite acute transcortical infarct. No intracranial hemorrhage or significa nt fluid collection. No brain parenchymal contusion or madan ma. No intracranial mass. No significant effacement of the basal cisterns or foramen magnum. Age-con sistent global parenchymal volume. Cerebral ventricles: No hydrocephalus. Paranasal sinuses: Visualized sinuses are unrema rkable. No fluid levels. Mastoid air cells: No significant fluid in the i frances mastoid air cells. Bones/joints: No significant abnormality of the calvarium or skull base. Soft tissues: Unremarkable. IMPRESSION: 1. Mild-moderate chronic microangiopathic ischem ic gliosis. 2. No acute intracranial abnormality. COMMENTS: MR is more sensitive for sub tle intracranial abnormality and may be helpful for further assessment if clinically appropriate. Marvin Cabral MD On 02/09/2021 23:32:00; ALBINO [id number] 2021-02-09 Radiation Dose CTDIVOL = 0 (mGy): DLP = 1319.12 (mGy-cm) [facility] 22:56:53-00:00 PROCEDURE INFORMATION: Exam: CT Abdomen And Pelvis With Contrast Exam date and time: 02/09/2021 11:04 PM Age: 70 years old Clinical indication: Abdominal pain; Epigastric; Additional info: /lap band patient, PT only able to dri nk a few sips of oral contrast a few minutes before scan. TECHNIQUE: Imaging protocol: Computed tomography of the abdomen and pelvis with contrast. Radiation optimization: All CT scans at this facility use at least one of these dose optimization techniques: automated exposure control; mA and/or kV adjustment per patient size (includes targeted e xams where dose is matched to clinical indication); or iterative reconstructio n. Contrast material: OMNI; Contrast volume: 80 ml; Contrast route: INTRAVENOUS (IV); Other contrast: Oral, Omni, 20; COMPARISON: ABDOMEN W IV CONTRAST CT 12/22/2020 9:22 AM RADIATION DOSE METRICS: Total DLP (mGy-cm): 1319.12 FINDINGS: Lungs: Mild bilateral basilar subsegmental atele ctasis and scarring. Small calcified granuloma in the right lung base. Heart: Normal size heart. Mediastinal space: Stable moderate sized hiatal hernia with a very thickened irregular wall worrisome for inflammation or esau plasm. Liver: Mildly diffusely enlarged liver measuring 20.1 cm maximum craniocaudal dimension. No focal hepatic lesion is appreciate d. Gallbladder and bile ducts: Postoperative changes of cholecystectomy associated with prominent central bile ducts likely physiol ogical in nature related to reservoir effect. Pancreas: Normal. No ductal dilation. Spleen: Normal size and attenuation without foca l lesion. Adrenal glands: Normal. No mass. Kidneys and ureters: Mild bilateral renal cortic al atrophy associated with right renal cortical scarring in the mid to infe rior pole. No urolithiasis, hydronephrosis, or suspicious focal lesion. Stomach and bowel: The remaining stomach is unde r distended and thick-walled. Mild constipation associated with an oth erwise non-specific bowel gas pattern. Suspect low-attenuation bila teral ovarian cystic lesions measuring up to 3.0 cm on the right and 3.6 cm on the left somewhat dif ficult to differentiate from adjacent fluid-filled small bowel loops. Appendix: Normal appendix. Intraperitoneal space: Felicitas l without free air or significant fluid collection. Vasculature: Normal caliber mildly atherosclerot ic abdominal aorta. Lymph nodes: Scattered subcentimeter central mes enteric and retroperitoneal lymph nodes without lymphadenopathy or mass. Urinary bladder: Contracted thick-walled urinary bladder with a lobulated mildly hyperattenuating focu s measuring up to 11 mm involving the anterior dome of the urinary bladder either representing artif act or focal lesion. Reproductive: Normal retroverted uterus. Bones/joints: Mild lumbar sp ondylosis and facet joint arthrosis greatest in the mid and lower lumbar spine. No acute fracture or dislocation. Soft tissues: Tiny fat containing umbilical nestor ia. IMPRESSION: 1. Stable moderate sized hiatal hernia with a ve ry thickened irregular wall worrisome for inflammation or neoplasm. Follow-u p upper GI or endoscopy would be helpful. 2. Mild constipation associated with an otherwis e non-specific bowel gas pattern. 3. Contracted thick-walled urinary bladder with a lobulated mildly hyperattenuating focus measu ring up to 11 mm involving the anterior dome of the urinary bladder either representing artifact or focal lesion. Follow-up ultrasound during adequate distension would be h elpful. 4. Suspect low-attenuation bilateral ovarian cys ts measuring 3.0 cm on the right and 3.6 cm on the left. Follow-up pelvic u ltrasound would be helpful. 5. Mild hepatomegaly. 6. Postoperative changes of cholecystectomy asso ciated with prominent central bile ducts likely physiological in nature relate d to reservoir effect. Elmer Jaeger MD On 02/09/2021 23:42:29; MICHAEL [id number] 2021-02-09 Radiation Dose CTDIVOL = 0 (mGy): DLP = 982.82 ( mGy-cm) [facility] 22:56:53-00:00 PROCEDURE INFORMATION: Exam: CT Head Without Contrast Exam date and time: 02/09/2021 11:02 PM Age: 70 years old Clinical indication: Syncope and collapse; Addit ional info: /syncope TECHNIQUE: Imaging protocol: Computed tomography of the hea d without contrast. Radiation optimization: All CT scans at this facility use at least one of these dose optimization techniques: automated exposure control; mA and/or kV adjustment per patient size (includes targeted e xams where dose is matched to clinical indication); or iterative reconstructio n. COMPARISON: No relevant prior studies available. 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 No defi nite acute transcortical infarct. No intracranial hemorrhage or significa nt fluid collection. No brain parenchymal contusion or madan ma. No intracranial mass. No significant effacement of the basal cisterns or foramen magnum. Age-con sistent global parenchymal volume. Cerebral ventricles: No hydrocephalus. Paranasal sinuses: Visualized sinuses are unrema rkable. No fluid levels. Mastoid air cells: No significant fluid in the i frances mastoid air cells. Bones/joints: No significant abnormality of the calvarium or skull base. Soft tissues: Unremarkable. IMPRESSION: 1. Mild-moderate chronic microangiopathic ischem ic gliosis. 2. No acute intracranial abnormality. COMMENTS: MR is more sensitive for sub tle intracranial abnormality and may be helpful for further assessment if clinically appropriate. Marvin Cabral MD On 02/09/2021 23:32:00; MOHINI-LEONILA [id number] 2021-02-09 Radiation Dose CTDIVOL = 0 (mGy): DLP = 1319.12 (mGy-cm) [facility] 22:56:53-00:00 PROCEDURE INFORMATION: Exam: CT Abdomen And Pelvis With Contrast Exam date and time: 02/09/2021 11:04 PM Age: 70 years old Clinical indication: Abdominal pain; Epigastric; Additional info: /lap band patient, PT only able to dri nk a few sips of oral contrast a few minutes before scan. TECHNIQUE: Imaging protocol: Computed tomography of the abdomen and pelvis with contrast. Radiation optimization: All CT scans at this facility use at least one of these dose optimization techniques: automated exposure control; mA and/or kV adjustment per patient size (includes targeted e xams where dose is matched to clinical indication); or iterative reconstructio n. Contrast material: OMNI; Contrast volume: 80 ml; Contrast route: INTRAVENOUS (IV); Other contrast: Oral, Omni, 20; COMPARISON: ABDOMEN W IV CONTRAST CT 12/22/2020 9:22 AM RADIATION DOSE METRICS: Total DLP (mGy-cm): 1319.12 FINDINGS: Lungs: Mild bilateral basilar subsegmental atele ctasis and scarring. Small calcified granuloma in the right lung base. Heart: Normal size heart. Mediastinal space: Stable moderate sized hiatal hernia with a very thickened irregular wall worrisome for inflammation or esau plasm. Liver: Mildly diffusely enlarged liver measuring 20.1 cm maximum craniocaudal dimension. No focal hepatic lesion is appreciate d. Gallbladder and bile ducts: Postoperative changes of cholecystectomy associated with prominent central bile ducts likely physiol ogical in nature related to reservoir effect. Pancreas: Normal. No ductal dilation. Spleen: Normal size and attenuation without foca l lesion. Adrenal glands: Normal. No mass. Kidneys and ureters: Mild bilateral renal cortic al atrophy associated with right renal cortical scarring in the mid to infe rior pole. No urolithiasis, hydronephrosis, or suspicious focal lesion. Stomach and bowel: The remaining stomach is unde r distended and thick-walled. Mild constipation associated with an oth erwise non-specific bowel gas pattern. Suspect low-attenuation bila teral ovarian cystic lesions measuring up to 3.0 cm on the right and 3.6 cm on the left somewhat dif ficult to differentiate from adjacent fluid-filled small bowel loops. Appendix: Normal appendix. Intraperitoneal space: Felicitas l without free air or significant fluid collection. Vasculature: Normal caliber mildly atherosclerot ic abdominal aorta. Lymph nodes: Scattered subcentimeter central mes enteric and retroperitoneal lymph nodes without lymphadenopathy or mass. Urinary bladder: Contracted thick-walled urinary bladder with a lobulated mildly hyperattenuating focu s measuring up to 11 mm involving the anterior dome of the urinary bladder either representing artif act or focal lesion. Reproductive: Normal retroverted uterus. Bones/joints: Mild lumbar sp ondylosis and facet joint arthrosis greatest in the mid and lower lumbar spine. No acute fracture or dislocation. Soft tissues: Tiny fat containing umbilical nestor ia. IMPRESSION: 1. Stable moderate sized hiatal hernia with a ve ry thickened irregular wall worrisome for inflammation or neoplasm. Follow-u p upper GI or endoscopy would be helpful. 2. Mild constipation associated with an otherwis e non-specific bowel gas pattern. 3. Contracted thick-walled urinary bladder with a lobulated mildly hyperattenuating focus measu ring up to 11 mm involving the anterior dome of the urinary bladder either representing artifact or focal lesion. Follow-up ultrasound during adequate distension would be h elpful. 4. Suspect low-attenuation bilateral ovarian cys ts measuring 3.0 cm on the right and 3.6 cm on the left. Follow-up pelvic u ltrasound would be helpful. 5. Mild hepatomegaly. 6. Postoperative changes of cholecystectomy asso ciated with prominent central bile ducts likely physiological in nature relate d to reservoir effect. Elmer Jaeger MD On 02/09/2021 23:42:29; MICHAEL [id number] 2021-02-09 Radiation Dose CTDIVOL = 0 (mGy): DLP = 982.82 ( mGy-cm) [facility] 22:56:53-00:00 PROCEDURE INFORMATION: Exam: CT Head Without Contrast Exam date and time: 02/09/2021 11:02 PM Age: 70 years old Clinical indication: Syncope and collapse; Addit ional info: /syncope TECHNIQUE: Imaging protocol: Computed tomography of the hea d without contrast. Radiation optimization: All CT scans at this facility use at least one of these dose optimization techniques: automated exposure control; mA and/or kV adjustment per patient size (includes targeted e xams where dose is matched to clinical indication); or iterative reconstructio n. COMPARISON: No relevant prior studies available. 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 No defi nite acute transcortical infarct. No intracranial hemorrhage or significa nt fluid collection. No brain parenchymal contusion or madan ma. No intracranial mass. No significant effacement of the basal cisterns or foramen magnum. Age-con sistent global parenchymal volume. Cerebral ventricles: No hydrocephalus. Paranasal sinuses: Visualized sinuses are unrema rkable. No fluid levels. Mastoid air cells: No significant fluid in the i frances mastoid air cells. Bones/joints: No significant abnormality of the calvarium or skull base. Soft tissues: Unremarkable. IMPRESSION: 1. Mild-moderate chronic microangiopathic ischem ic gliosis. 2. No acute intracranial abnormality. COMMENTS: MR is more sensitive for sub tle intracranial abnormality and may be helpful for further assessment if clinically appropriate. Marvin Cabral MD On 02/09/2021 23:32:00; MOHINI-LEONILA [id number] 2021-02-09 Radiation Dose CTDIVOL = 0 (mGy): DLP = 1319.12 (mGy-cm) [facility] 22:56:53-00:00 PROCEDURE INFORMATION: Exam: CT Abdomen And Pelvis With Contrast Exam date and time: 02/09/2021 11:04 PM Age: 70 years old Clinical indication: Abdominal pain; Epigastric; Additional info: /lap band patient, PT only able to dri nk a few sips of oral contrast a few minutes before scan. TECHNIQUE: Imaging protocol: Computed tomography of the abdomen and pelvis with contrast. Radiation optimization: All CT scans at this facility use at least one of these dose optimization techniques: automated exposure control; mA and/or kV adjustment per patient size (includes targeted e xams where dose is matched to clinical indication); or iterative reconstructio n. Contrast material: OMNI; Contrast volume: 80 ml; Contrast route: INTRAVENOUS (IV); Other contrast: Oral, Omni, 20; COMPARISON: ABDOMEN W IV CONTRAST CT 12/22/2020 9:22 AM RADIATION DOSE METRICS: Total DLP (mGy-cm): 1319.12 FINDINGS: Lungs: Mild bilateral basilar subsegmental atele ctasis and scarring. Small calcified granuloma in the right lung base. Heart: Normal size heart. Mediastinal space: Stable moderate sized hiatal hernia with a very thickened irregular wall worrisome for inflammation or esau plasm. Liver: Mildly diffusely enlarged liver measuring 20.1 cm maximum craniocaudal dimension. No focal hepatic lesion is appreciate d. Gallbladder and bile ducts: Postoperative changes of cholecystectomy associated with prominent central bile ducts likely physiol ogical in nature related to reservoir effect. Pancreas: Normal. No ductal dilation. Spleen: Normal size and attenuation without foca l lesion. Adrenal glands: Normal. No mass. Kidneys and ureters: Mild bilateral renal cortic al atrophy associated with right renal cortical scarring in the mid to infe rior pole. No urolithiasis, hydronephrosis, or suspicious focal lesion. Stomach and bowel: The remaining stomach is unde r distended and thick-walled. Mild constipation associated with an oth erwise non-specific bowel gas pattern. Suspect low-attenuation bila teral ovarian cystic lesions measuring up to 3.0 cm on the right and 3.6 cm on the left somewhat dif ficult to differentiate from adjacent fluid-filled small bowel loops. Appendix: Normal appendix. Intraperitoneal space: Felicitas l without free air or significant fluid collection. Vasculature: Normal caliber mildly atherosclerot ic abdominal aorta. Lymph nodes: Scattered subcentimeter central mes enteric and retroperitoneal lymph nodes without lymphadenopathy or mass. Urinary bladder: Contracted thick-walled urinary bladder with a lobulated mildly hyperattenuating focu s measuring up to 11 mm involving the anterior dome of the urinary bladder either representing artif act or focal lesion. Reproductive: Normal retroverted uterus. Bones/joints: Mild lumbar sp ondylosis and facet joint arthrosis greatest in the mid and lower lumbar spine. No acute fracture or dislocation. Soft tissues: Tiny fat containing umbilical nestor ia. IMPRESSION: 1. Stable moderate sized hiatal hernia with a ve ry thickened irregular wall worrisome for inflammation or neoplasm. Follow-u p upper GI or endoscopy would be helpful. 2. Mild constipation associated with an otherwis e non-specific bowel gas pattern. 3. Contracted thick-walled urinary bladder with a lobulated mildly hyperattenuating focus measu ring up to 11 mm involving the anterior dome of the urinary bladder either representing artifact or focal lesion. Follow-up ultrasound during adequate distension would be h elpful. 4. Suspect low-attenuation bilateral ovarian cys ts measuring 3.0 cm on the right and 3.6 cm on the left. Follow-up pelvic u ltrasound would be helpful. 5. Mild hepatomegaly. 6. Postoperative changes of cholecystectomy asso ciated with prominent central bile ducts likely physiological in nature relate d to reservoir effect. Elmer Jaeger MD On 02/09/2021 23:42:29; MICHAEL [id number] 2021-02-09 Radiation Dose CTDIVOL = 0 (mGy): DLP = 982.82 ( mGy-cm) [facility] 22:56:53-00:00 PROCEDURE INFORMATION: Exam: CT Head Without Contrast Exam date and time: 02/09/2021 11:02 PM Age: 70 years old Clinical indication: Syncope and collapse; Addit ional info: /syncope TECHNIQUE: Imaging protocol: Computed tomography of the hea d without contrast. Radiation optimization: All CT scans at this facility use at least one of these dose optimization techniques: automated exposure control; mA and/or kV adjustment per patient size (includes targeted e xams where dose is matched to clinical indication); or iterative reconstructio n. COMPARISON: No relevant prior studies available. 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 No defi nite acute transcortical infarct. No intracranial hemorrhage or significa nt fluid collection. No brain parenchymal contusion or madan ma. No intracranial mass. No significant effacement of the basal cisterns or foramen magnum. Age-con sistent global parenchymal volume. Cerebral ventricles: No hydrocephalus. Paranasal sinuses: Visualized sinuses are unrema rkable. No fluid levels. Mastoid air cells: No significant fluid in the i frances mastoid air cells. Bones/joints: No significant abnormality of the calvarium or skull base. Soft tissues: Unremarkable. IMPRESSION: 1. Mild-moderate chronic microangiopathic ischem ic gliosis. 2. No acute intracranial abnormality. COMMENTS: MR is more sensitive for sub tle intracranial abnormality and may be helpful for further assessment if clinically appropriate. Marvin Cabral MD On 02/09/2021 23:32:00; ALBINO [id number] 2021-02-09 Radiation Dose CTDIVOL = 0 (mGy): DLP = 1319.12 (mGy-cm) [facility] 22:56:53-00:00 PROCEDURE INFORMATION: Exam: CT Abdomen And Pelvis With Contrast Exam date and time: 02/09/2021 11:04 PM Age: 70 years old Clinical indication: Abdominal pain; Epigastric; Additional info: /lap band patient, PT only able to dri nk a few sips of oral contrast a few minutes before scan. TECHNIQUE: Imaging protocol: Computed tomography of the abdomen and pelvis with contrast. Radiation optimization: All CT scans at this facility use at least one of these dose optimization techniques: automated exposure control; mA and/or kV adjustment per patient size (includes targeted e xams where dose is matched to clinical indication); or iterative reconstructio n. Contrast material: OMNI; Contrast volume: 80 ml; Contrast route: INTRAVENOUS (IV); Other contrast: Oral, Omni, 20; COMPARISON: ABDOMEN W IV CONTRAST CT 12/22/2020 9:22 AM RADIATION DOSE METRICS: Total DLP (mGy-cm): 1319.12 FINDINGS: Lungs: Mild bilateral basilar subsegmental atele ctasis and scarring. Small calcified granuloma in the right lung base. Heart: Normal size heart. Mediastinal space: Stable moderate sized hiatal hernia with a very thickened irregular wall worrisome for inflammation or easu plasm. Liver: Mildly diffusely enlarged liver measuring 20.1 cm maximum craniocaudal dimension. No focal hepatic lesion is appreciate d. Gallbladder and bile ducts: Postoperative changes of cholecystectomy associated with prominent central bile ducts likely physiol ogical in nature related to reservoir effect. Pancreas: Normal. No ductal dilation. Spleen: Normal size and attenuation without foca l lesion. Adrenal glands: Normal. No mass. Kidneys and ureters: Mild bilateral renal cortic al atrophy associated with right renal cortical scarring in the mid to infe rior pole. No urolithiasis, hydronephrosis, or suspicious focal lesion. Stomach and bowel: The remaining stomach is unde r distended and thick-walled. Mild constipation associated with an oth erwise non-specific bowel gas pattern. Suspect low-attenuation bila teral ovarian cystic lesions measuring up to 3.0 cm on the right and 3.6 cm on the left somewhat dif ficult to differentiate from adjacent fluid-filled small bowel loops. Appendix: Normal appendix. Intraperitoneal space: Felicitas l without free air or significant fluid collection. Vasculature: Normal caliber mildly atherosclerot ic abdominal aorta. Lymph nodes: Scattered subcentimeter central mes enteric and retroperitoneal lymph nodes without lymphadenopathy or mass. Urinary bladder: Contracted thick-walled urinary bladder with a lobulated mildly hyperattenuating focu s measuring up to 11 mm involving the anterior dome of the urinary bladder either representing artif act or focal lesion. Reproductive: Normal retroverted uterus. Bones/joints: Mild lumbar sp ondylosis and facet joint arthrosis greatest in the mid and lower lumbar spine. No acute fracture or dislocation. Soft tissues: Tiny fat containing umbilical nestor ia. IMPRESSION: 1. Stable moderate sized hiatal hernia with a ve ry thickened irregular wall worrisome for inflammation or neoplasm. Follow-u p upper GI or endoscopy would be helpful. 2. Mild constipation associated with an otherwis e non-specific bowel gas pattern. 3. Contracted thick-walled urinary bladder with a lobulated mildly hyperattenuating focus measu ring up to 11 mm involving the anterior dome of the urinary bladder either representing artifact or focal lesion. Follow-up ultrasound during adequate distension would be h elpful. 4. Suspect low-attenuation bilateral ovarian cys ts measuring 3.0 cm on the right and 3.6 cm on the left. Follow-up pelvic u ltrasound would be helpful. 5. Mild hepatomegaly. 6. Postoperative changes of cholecystectomy asso ciated with prominent central bile ducts likely physiological in nature relate d to reservoir effect. Elmer Jaeger MD On 02/09/2021 23:42:29; MICHAEL [id number] 2021-02-09 Radiation Dose CTDIVOL = 0 (mGy): DLP = 982.82 ( mGy-cm) [facility] 22:56:53-00:00 PROCEDURE INFORMATION: Exam: CT Head Without Contrast Exam date and time: 02/09/2021 11:02 PM Age: 70 years old Clinical indication: Syncope and collapse; Addit ional info: /syncope TECHNIQUE: Imaging protocol: Computed tomography of the hea d without contrast. Radiation optimization: All CT scans at this facility use at least one of these dose optimization techniques: automated exposure control; mA and/or kV adjustment per patient size (includes targeted e xams where dose is matched to clinical indication); or iterative reconstructio n. COMPARISON: No relevant prior studies available. 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 No defi nite acute transcortical infarct. No intracranial hemorrhage or significa nt fluid collection. No brain parenchymal contusion or madan ma. No intracranial mass. No significant effacement of the basal cisterns or foramen magnum. Age-con sistent global parenchymal volume. Cerebral ventricles: No hydrocephalus. Paranasal sinuses: Visualized sinuses are unrema rkable. No fluid levels. Mastoid air cells: No significant fluid in the i frances mastoid air cells. Bones/joints: No significant abnormality of the calvarium or skull base. Soft tissues: Unremarkable. IMPRESSION: 1. Mild-moderate chronic microangiopathic ischem ic gliosis. 2. No acute intracranial abnormality. COMMENTS: MR is more sensitive for sub tle intracranial abnormality and may be helpful for further assessment if clinically appropriate. Marvin Cabral MD On 02/09/2021 23:32:00; VR-SNY [id number] 2021-02-09 Radiation Dose CTDIVOL = 0 (mGy): DLP = 1319.12 (mGy-cm) [facility] 22:56:53-00:00 PROCEDURE INFORMATION: Exam: CT Abdomen And Pelvis With Contrast Exam date and time: 02/09/2021 11:04 PM Age: 70 years old Clinical indication: Abdominal pain; Epigastric; Additional info: /lap band patient, PT only able to dri nk a few sips of oral contrast a few minutes before scan. TECHNIQUE: Imaging protocol: Computed tomography of the abdomen and pelvis with contrast. Radiation optimization: All CT scans at this facility use at least one of these dose optimization techniques: automated exposure control; mA and/or kV adjustment per patient size (includes targeted e xams where dose is matched to clinical indication); or iterative reconstructio n. Contrast material: OMNI; Contrast volume: 80 ml; Contrast route: INTRAVENOUS (IV); Other contrast: Oral, Omni, 20; COMPARISON: ABDOMEN W IV CONTRAST CT 12/22/2020 9:22 AM RADIATION DOSE METRICS: Total DLP (mGy-cm): 1319.12 FINDINGS: Lungs: Mild bilateral basilar subsegmental atele ctasis and scarring. Small calcified granuloma in the right lung base. Heart: Normal size heart. Mediastinal space: Stable moderate sized hiatal hernia with a very thickened irregular wall worrisome for inflammation or esau plasm. Liver: Mildly diffusely enlarged liver measuring 20.1 cm maximum craniocaudal dimension. No focal hepatic lesion is appreciate d. Gallbladder and bile ducts: Postoperative changes of cholecystectomy associated with prominent central bile ducts likely physiol ogical in nature related to reservoir effect. Pancreas: Normal. No ductal dilation. Spleen: Normal size and attenuation without foca l lesion. Adrenal glands: Normal. No mass. Kidneys and ureters: Mild bilateral renal cortic al atrophy associated with right renal cortical scarring in the mid to infe rior pole. No urolithiasis, hydronephrosis, or suspicious focal lesion. Stomach and bowel: The remaining stomach is unde r distended and thick-walled. Mild constipation associated with an oth erwise non-specific bowel gas pattern. Suspect low-attenuation bila teral ovarian cystic lesions measuring up to 3.0 cm on the right and 3.6 cm on the left somewhat dif ficult to differentiate from adjacent fluid-filled small bowel loops. Appendix: Normal appendix. Intraperitoneal space: Felicitas l without free air or significant fluid collection. Vasculature: Normal caliber mildly atherosclerot ic abdominal aorta. Lymph nodes: Scattered subcentimeter central mes enteric and retroperitoneal lymph nodes without lymphadenopathy or mass. Urinary bladder: Contracted thick-walled urinary bladder with a lobulated mildly hyperattenuating focu s measuring up to 11 mm involving the anterior dome of the urinary bladder either representing artif act or focal lesion. Reproductive: Normal retroverted uterus. Bones/joints: Mild lumbar sp ondylosis and facet joint arthrosis greatest in the mid and lower lumbar spine. No acute fracture or dislocation. Soft tissues: Tiny fat containing umbilical nestor ia. IMPRESSION: 1. Stable moderate sized hiatal hernia with a ve ry thickened irregular wall worrisome for inflammation or neoplasm. Follow-u p upper GI or endoscopy would be helpful. 2. Mild constipation associated with an otherwis e non-specific bowel gas pattern. 3. Contracted thick-walled urinary bladder with a lobulated mildly hyperattenuating focus measu ring up to 11 mm involving the anterior dome of the urinary bladder either representing artifact or focal lesion. Follow-up ultrasound during adequate distension would be h elpful. 4. Suspect low-attenuation bilateral ovarian cys ts measuring 3.0 cm on the right and 3.6 cm on the left. Follow-up pelvic u ltrasound would be helpful. 5. Mild hepatomegaly. 6. Postoperative changes of cholecystectomy asso ciated with prominent central bile ducts likely physiological in nature relate d to reservoir effect. Elmer Jaeger MD On 02/09/2021 23:42:29; MICHAEL [id number] 2021-02-09 Radiation Dose CTDIVOL = 0 (mGy): DLP = 982.82 ( mGy-cm) [facility] 22:56:53-00:00 PROCEDURE INFORMATION: Exam: CT Head Without Contrast Exam date and time: 02/09/2021 11:02 PM Age: 70 years old Clinical indication: Syncope and collapse; Addit ional info: /syncope TECHNIQUE: Imaging protocol: Computed tomography of the hea d without contrast. Radiation optimization: All CT scans at this facility use at least one of these dose optimization techniques: automated exposure control; mA and/or kV adjustment per patient size (includes targeted e xams where dose is matched to clinical indication); or iterative reconstructio n. COMPARISON: No relevant prior studies available. 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 No defi nite acute transcortical infarct. No intracranial hemorrhage or significa nt fluid collection. No brain parenchymal contusion or madan ma. No intracranial mass. No significant effacement of the basal cisterns or foramen magnum. Age-con sistent global parenchymal volume. Cerebral ventricles: No hydrocephalus. Paranasal sinuses: Visualized sinuses are unrema rkable. No fluid levels. Mastoid air cells: No significant fluid in the i frances mastoid air cells. Bones/joints: No significant abnormality of the calvarium or skull base. Soft tissues: Unremarkable. IMPRESSION: 1. Mild-moderate chronic microangiopathic ischem ic gliosis. 2. No acute intracranial abnormality. COMMENTS: MR is more sensitive for sub tle intracranial abnormality and may be helpful for further assessment if clinically appropriate. Marvin Cabral MD On 02/09/2021 23:32:00; MOHINI-LEONILA [id number] 2021-02-09 Radiation Dose CTDIVOL = 0 (mGy): DLP = 1319.12 (mGy-cm) [facility] 22:56:53-00:00 PROCEDURE INFORMATION: Exam: CT Abdomen And Pelvis With Contrast Exam date and time: 02/09/2021 11:04 PM Age: 70 years old Clinical indication: Abdominal pain; Epigastric; Additional info: /lap band patient, PT only able to dri nk a few sips of oral contrast a few minutes before scan. TECHNIQUE: Imaging protocol: Computed tomography of the abdomen and pelvis with contrast. Radiation optimization: All CT scans at this facility use at least one of these dose optimization techniques: automated exposure control; mA and/or kV adjustment per patient size (includes targeted e xams where dose is matched to clinical indication); or iterative reconstructio n. Contrast material: OMNI; Contrast volume: 80 ml; Contrast route: INTRAVENOUS (IV); Other contrast: Oral, Omni, 20; COMPARISON: ABDOMEN W IV CONTRAST CT 12/22/2020 9:22 AM RADIATION DOSE METRICS: Total DLP (mGy-cm): 1319.12 FINDINGS: Lungs: Mild bilateral basilar subsegmental atele ctasis and scarring. Small calcified granuloma in the right lung base. Heart: Normal size heart. Mediastinal space: Stable moderate sized hiatal hernia with a very thickened irregular wall worrisome for inflammation or esau plasm. Liver: Mildly diffusely enlarged liver measuring 20.1 cm maximum craniocaudal dimension. No focal hepatic lesion is appreciate d. Gallbladder and bile ducts: Postoperative changes of cholecystectomy associated with prominent central bile ducts likely physiol ogical in nature related to reservoir effect. Pancreas: Normal. No ductal dilation. Spleen: Normal size and attenuation without foca l lesion. Adrenal glands: Normal. No mass. Kidneys and ureters: Mild bilateral renal cortic al atrophy associated with right renal cortical scarring in the mid to infe rior pole. No urolithiasis, hydronephrosis, or suspicious focal lesion. Stomach and bowel: The remaining stomach is unde r distended and thick-walled. Mild constipation associated with an oth erwise non-specific bowel gas pattern. Suspect low-attenuation bila teral ovarian cystic lesions measuring up to 3.0 cm on the right and 3.6 cm on the left somewhat dif ficult to differentiate from adjacent fluid-filled small bowel loops. Appendix: Normal appendix. Intraperitoneal space: Felicitas l without free air or significant fluid collection. Vasculature: Normal caliber mildly atherosclerot ic abdominal aorta. Lymph nodes: Scattered subcentimeter central mes enteric and retroperitoneal lymph nodes without lymphadenopathy or mass. Urinary bladder: Contracted thick-walled urinary bladder with a lobulated mildly hyperattenuating focu s measuring up to 11 mm involving the anterior dome of the urinary bladder either representing artif act or focal lesion. Reproductive: Normal retroverted uterus. Bones/joints: Mild lumbar sp ondylosis and facet joint arthrosis greatest in the mid and lower lumbar spine. No acute fracture or dislocation. Soft tissues: Tiny fat containing umbilical nestor ia. IMPRESSION: 1. Stable moderate sized hiatal hernia with a ve ry thickened irregular wall worrisome for inflammation or neoplasm. Follow-u p upper GI or endoscopy would be helpful. 2. Mild constipation associated with an otherwis e non-specific bowel gas pattern. 3. Contracted thick-walled urinary bladder with a lobulated mildly hyperattenuating focus measu ring up to 11 mm involving the anterior dome of the urinary bladder either representing artifact or focal lesion. Follow-up ultrasound during adequate distension would be h elpful. 4. Suspect low-attenuation bilateral ovarian cys ts measuring 3.0 cm on the right and 3.6 cm on the left. Follow-up pelvic u ltrasound would be helpful. 5. Mild hepatomegaly. 6. Postoperative changes of cholecystectomy asso ciated with prominent central bile ducts likely physiological in nature relate d to reservoir effect. Elmer Jaeger MD On 02/09/2021 23:42:29; VR-TP [id number] 2021-02-09 Radiation Dose CTDIVOL = 0 (mGy): DLP = 982.82 ( mGy-cm) [facility] 22:56:53-00:00 PROCEDURE INFORMATION: Exam: CT Head Without Contrast Exam date and time: 02/09/2021 11:02 PM Age: 70 years old Clinical indication: Syncope and collapse; Addit ional info: /syncope TECHNIQUE: Imaging protocol: Computed tomography of the hea d without contrast. Radiation optimization: All CT scans at this facility use at least one of these dose optimization techniques: automated exposure control; mA and/or kV adjustment per patient size (includes targeted e xams where dose is matched to clinical indication); or iterative reconstructio n. COMPARISON: No relevant prior studies available. 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 No defi nite acute transcortical infarct. No intracranial hemorrhage or significa nt fluid collection. No brain parenchymal contusion or madan ma. No intracranial mass. No significant effacement of the basal cisterns or foramen magnum. Age-con sistent global parenchymal volume. Cerebral ventricles: No hydrocephalus. Paranasal sinuses: Visualized sinuses are unrema rkable. No fluid levels. Mastoid air cells: No significant fluid in the i frances mastoid air cells. Bones/joints: No significant abnormality of the calvarium or skull base. Soft tissues: Unremarkable. IMPRESSION: 1. Mild-moderate chronic microangiopathic ischem ic gliosis. 2. No acute intracranial abnormality. COMMENTS: MR is more sensitive for sub tle intracranial abnormality and may be helpful for further assessment if clinically appropriate. Marvin Cabral MD On 02/09/2021 23:32:00; ALBINO [id number] 2021-02-09 Radiation Dose CTDIVOL = 0 (mGy): DLP = 1319.12 (mGy-cm) [facility] 22:56:53-00:00 PROCEDURE INFORMATION: Exam: CT Abdomen And Pelvis With Contrast Exam date and time: 02/09/2021 11:04 PM Age: 70 years old Clinical indication: Abdominal pain; Epigastric; Additional info: /lap band patient, PT only able to dri nk a few sips of oral contrast a few minutes before scan. TECHNIQUE: Imaging protocol: Computed tomography of the abdomen and pelvis with contrast. Radiation optimization: All CT scans at this facility use at least one of these dose optimization techniques: automated exposure control; mA and/or kV adjustment per patient size (includes targeted e xams where dose is matched to clinical indication); or iterative reconstructio n. Contrast material: OMNI; Contrast volume: 80 ml; Contrast route: INTRAVENOUS (IV); Other contrast: Oral, Omni, 20; COMPARISON: ABDOMEN W IV CONTRAST CT 12/22/2020 9:22 AM RADIATION DOSE METRICS: Total DLP (mGy-cm): 1319.12 FINDINGS: Lungs: Mild bilateral basilar subsegmental atele ctasis and scarring. Small calcified granuloma in the right lung base. Heart: Normal size heart. Mediastinal space: Stable moderate sized hiatal hernia with a very thickened irregular wall worrisome for inflammation or esau plasm. Liver: Mildly diffusely enlarged liver measuring 20.1 cm maximum craniocaudal dimension. No focal hepatic lesion is appreciate d. Gallbladder and bile ducts: Postoperative changes of cholecystectomy associated with prominent central bile ducts likely physiol ogical in nature related to reservoir effect. Pancreas: Normal. No ductal dilation. Spleen: Normal size and attenuation without foca l lesion. Adrenal glands: Normal. No mass. Kidneys and ureters: Mild bilateral renal cortic al atrophy associated with right renal cortical scarring in the mid to infe rior pole. No urolithiasis, hydronephrosis, or suspicious focal lesion. Stomach and bowel: The remaining stomach is unde r distended and thick-walled. Mild constipation associated with an oth erwise non-specific bowel gas pattern. Suspect low-attenuation bila teral ovarian cystic lesions measuring up to 3.0 cm on the right and 3.6 cm on the left somewhat dif ficult to differentiate from adjacent fluid-filled small bowel loops. Appendix: Normal appendix. Intraperitoneal space: Felicitas l without free air or significant fluid collection. Vasculature: Normal caliber mildly atherosclerot ic abdominal aorta. Lymph nodes: Scattered subcentimeter central mes enteric and retroperitoneal lymph nodes without lymphadenopathy or mass. Urinary bladder: Contracted thick-walled urinary bladder with a lobulated mildly hyperattenuating focu s measuring up to 11 mm involving the anterior dome of the urinary bladder either representing artif act or focal lesion. Reproductive: Normal retroverted uterus. Bones/joints: Mild lumbar sp ondylosis and facet joint arthrosis greatest in the mid and lower lumbar spine. No acute fracture or dislocation. Soft tissues: Tiny fat containing umbilical nestor ia. IMPRESSION: 1. Stable moderate sized hiatal hernia with a ve ry thickened irregular wall worrisome for inflammation or neoplasm. Follow-u p upper GI or endoscopy would be helpful. 2. Mild constipation associated with an otherwis e non-specific bowel gas pattern. 3. Contracted thick-walled urinary bladder with a lobulated mildly hyperattenuating focus measu ring up to 11 mm involving the anterior dome of the urinary bladder either representing artifact or focal lesion. Follow-up ultrasound during adequate distension would be h elpful. 4. Suspect low-attenuation bilateral ovarian cys ts measuring 3.0 cm on the right and 3.6 cm on the left. Follow-up pelvic u ltrasound would be helpful. 5. Mild hepatomegaly. 6. Postoperative changes of cholecystectomy asso ciated with prominent central bile ducts likely physiological in nature relate d to reservoir effect. Elmer Jaeger MD On 02/09/2021 23:42:29; MICHAEL [id number] 2021-02-09 Radiation Dose CTDIVOL = 0 (mGy): DLP = 982.82 ( mGy-cm) [facility] 22:56:53-00:00 PROCEDURE INFORMATION: Exam: CT Head Without Contrast Exam date and time: 02/09/2021 11:02 PM Age: 70 years old Clinical indication: Syncope and collapse; Addit ional info: /syncope TECHNIQUE: Imaging protocol: Computed tomography of the hea d without contrast. Radiation optimization: All CT scans at this facility use at least one of these dose optimization techniques: automated exposure control; mA and/or kV adjustment per patient size (includes targeted e xams where dose is matched to clinical indication); or iterative reconstructio n. COMPARISON: No relevant prior studies available. 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 No defi nite acute transcortical infarct. No intracranial hemorrhage or significa nt fluid collection. No brain parenchymal contusion or madan ma. No intracranial mass. No significant effacement of the basal cisterns or foramen magnum. Age-con sistent global parenchymal volume. Cerebral ventricles: No hydrocephalus. Paranasal sinuses: Visualized sinuses are unrema rkable. No fluid levels. Mastoid air cells: No significant fluid in the i frances mastoid air cells. Bones/joints: No significant abnormality of the calvarium or skull base. Soft tissues: Unremarkable. IMPRESSION: 1. Mild-moderate chronic microangiopathic ischem ic gliosis. 2. No acute intracranial abnormality. COMMENTS: MR is more sensitive for sub tle intracranial abnormality and may be helpful for further assessment if clinically appropriate. Marvin Cabral MD On 02/09/2021 23:32:00; ALBINO [id number] 2021-02-09 Radiation Dose CTDIVOL = 0 (mGy): DLP = 1319.12 (mGy-cm) [facility] :56:53-00:00 PROCEDURE INFORMATION: Exam: CT Abdomen And Pelvis With Contrast Exam date and time: 02/09/2021 11:04 PM Age: 70 years old Clinical indication: Abdominal pain; Epigastric; Additional info: /lap band patient, PT only able to dri nk a few sips of oral contrast a few minutes before scan. TECHNIQUE: Imaging protocol: Computed tomography of the abdomen and pelvis with contrast. Radiation optimization: All CT scans at this facility use at least one of these dose optimization techniques: automated exposure control; mA and/or kV adjustment per patient size (includes targeted e xams where dose is matched to clinical indication); or iterative reconstructio n. Contrast material: OMNI; Contrast volume: 80 ml; Contrast route: INTRAVENOUS (IV); Other contrast: Oral, Omni, 20; COMPARISON: ABDOMEN W IV CONTRAST CT 12/22/2020 9:22 AM RADIATION DOSE METRICS: Total DLP (mGy-cm): 1319.12 FINDINGS: Lungs: Mild bilateral basilar subsegmental atele ctasis and scarring. Small calcified granuloma in the right lung base. Heart: Normal size heart. Mediastinal space: Stable moderate sized hiatal hernia with a very thickened irregular wall worrisome for inflammation or esau plasm. Liver: Mildly diffusely enlarged liver measuring 20.1 cm maximum craniocaudal dimension. No focal hepatic lesion is appreciate d. Gallbladder and bile ducts: Postoperative changes of cholecystectomy associated with prominent central bile ducts likely physiol ogical in nature related to reservoir effect. Pancreas: Normal. No ductal dilation. Spleen: Normal size and attenuation without foca l lesion. Adrenal glands: Normal. No mass. Kidneys and ureters: Mild bilateral renal cortic al atrophy associated with right renal cortical scarring in the mid to infe rior pole. No urolithiasis, hydronephrosis, or suspicious focal lesion. Stomach and bowel: The remaining stomach is unde r distended and thick-walled. Mild constipation associated with an oth erwise non-specific bowel gas pattern. Suspect low-attenuation bila teral ovarian cystic lesions measuring up to 3.0 cm on the right and 3.6 cm on the left somewhat dif ficult to differentiate from adjacent fluid-filled small bowel loops. Appendix: Normal appendix. Intraperitoneal space: Felicitas l without free air or significant fluid collection. Vasculature: Normal caliber mildly atherosclerot ic abdominal aorta. Lymph nodes: Scattered subcentimeter central mes enteric and retroperitoneal lymph nodes without lymphadenopathy or mass. Urinary bladder: Contracted thick-walled urinary bladder with a lobulated mildly hyperattenuating focu s measuring up to 11 mm involving the anterior dome of the urinary bladder either representing artif act or focal lesion. Reproductive: Normal retroverted uterus. Bones/joints: Mild lumbar sp ondylosis and facet joint arthrosis greatest in the mid and lower lumbar spine. No acute fracture or dislocation. Soft tissues: Tiny fat containing umbilical nestor ia. IMPRESSION: 1. Stable moderate sized hiatal hernia with a ve ry thickened irregular wall worrisome for inflammation or neoplasm. Follow-u p upper GI or endoscopy would be helpful. 2. Mild constipation associated with an otherwis e non-specific bowel gas pattern. 3. Contracted thick-walled urinary bladder with a lobulated mildly hyperattenuating focus measu ring up to 11 mm involving the anterior dome of the urinary bladder either representing artifact or focal lesion. Follow-up ultrasound during adequate distension would be h elpful. 4. Suspect low-attenuation bilateral ovarian cys ts measuring 3.0 cm on the right and 3.6 cm on the left. Follow-up pelvic u ltrasound would be helpful. 5. Mild hepatomegaly. 6. Postoperative changes of cholecystectomy asso ciated with prominent central bile ducts likely physiological in nature relate d to reservoir effect. Elmer Jaeger MD On 02/09/2021 23:42:29; MICHAEL [id number] 2021-02-09 PROCEDURE INFORMATION: [facility] 20:54:23-00:00 Exam: XR Chest Exam date and time: 02/09/2021 8:58 PM Age: 70 years old Clinical indication: Other: Epigastric p ain; Additional info: /epigastric pain TECHNIQUE: Imaging protocol: XR of the chest. Views: 2 views. PA and Lateral COMPARISON: ABDOMEN W IV CONTRAST CT 12/22/2020 9:22 AM FINDINGS: Lungs: Mild decreased lung volumes. No consolida tion. Mild bibasilar atelectasis. Pleural spaces: No pleural effusion. No pneumoth orax. Heart/Mediastinum: Heart size is within normal l imits. Vasculature is unremarkable. Bones/joints: No acute osseous abnormalities. IMPRESSION: No acute cardiopulmonary findings. Miguelangel Luciano MD On 02/09/2021 21:20:47; MOHINI-ABASHILPA [id number] PROCEDURE INFORMATION: [place] [facility] 20:54:23-00:00 Exam: XR Chest Exam date and time: 02/09/2021 8:58 PM Age: 70 years old Clinical indication: Other: Epigastric p ain; Additional info: /epigastric pain TECHNIQUE: Imaging protocol: XR of the chest. Views: 2 views. PA and Lateral COMPARISON: ABDOMEN W IV CONTRAST CT 12/22/2020 9:22 AM FINDINGS: Lungs: Mild decreased lung volumes. No consolida tion. Mild bibasilar atelectasis. Pleural spaces: No pleural effusion. No pneumoth orax. Heart/Mediastinum: Heart size is within normal l imits. Vasculature is unremarkable. Bones/joints: No acute osseous abnormalities. IMPRESSION: No acute cardiopulmonary findings. Miguelangel Luciano MD On 02/09/2021 21:20:47; [facility] [id number] PROCEDURE INFORMATION: [place] 20:54:23-00:00 Exam: XR Chest Exam date and time: 02/09/2021 8:58 PM Age: 70 years old Clinical indication: Other: Epigastric p ain; Additional info: /epigastric pain TECHNIQUE: Imaging protocol: XR of the chest. Views: 2 views. PA and Lateral COMPARISON: ABDOMEN W IV CONTRAST CT 12/22/2020 9:22 AM FINDINGS: Lungs: Mild decreased lung volumes. No consolida tion. Mild bibasilar atelectasis. Pleural spaces: No pleural effusion. No pneumoth orax. Heart/Mediastinum: Heart size is within normal l imits. Vasculature is unremarkable. Bones/joints: No acute osseous abnormalities. IMPRESSION: No acute cardiopulmonary findings. Miguelangel Luciano MD On 02/09/2021 21:20:47; -ABAXT [id number] PROCEDURE INFORMATION: [place] 20:54:23-00:00 Exam: XR Chest Exam date and time: 02/09/2021 8:58 PM Age: 70 years old Clinical indication: Other: Epigastric p ain; Additional info: /epigastric pain TECHNIQUE: Imaging protocol: XR of the chest. Views: 2 views. PA and Lateral COMPARISON: ABDOMEN W IV CONTRAST CT 12/22/2020 9:22 AM FINDINGS: Lungs: Mild decreased lung volumes. No consolida tion. Mild bibasilar atelectasis. Pleural spaces: No pleural effusion. No pneumoth orax. Heart/Mediastinum: Heart size is within normal l imits. Vasculature is unremarkable. Bones/joints: No acute osseous abnormalities. IMPRESSION: No acute cardiopulmonary findings. Miguelangel Luciano MD On 02/09/2021 21:20:47; VR-ABAXT [id number] PROCEDURE INFORMATION: [facility] 20:54:23-00:00 Exam: XR Chest Exam date and time: 02/09/2021 8:58 PM Age: 70 years old Clinical indication: Other: Epigastric p ain; Additional info: /epigastric pain TECHNIQUE: Imaging protocol: XR of the chest. Views: 2 views. PA and Lateral COMPARISON: ABDOMEN W IV CONTRAST CT 12/22/2020 9:22 AM FINDINGS: Lungs: Mild decreased lung volumes. No consolida tion. Mild bibasilar atelectasis. Pleural spaces: No pleural effusion. No pneumoth orax. Heart/Mediastinum: Heart size is within normal l imits. Vasculature is unremarkable. Bones/joints: No acute osseous abnormalities. IMPRESSION: No acute cardiopulmonary findings. Miguelangel Luciano MD On 02/09/2021 21:20:47; -ABAXT [id number] PROCEDURE INFORMATION: WIL law 20:54:23-00:00 Exam: XR Chest Exam date and time: 02/09/2021 8:58 PM Age: 70 years old Clinical indication: Other: Epigastric p ain; Additional info: /epigastric pain TECHNIQUE: Imaging protocol: XR of the chest. Views: 2 views. PA and Lateral COMPARISON: ABDOMEN W IV CONTRAST CT 12/22/2020 9:22 AM FINDINGS: Lungs: Mild decreased lung volumes. No consolida tion. Mild bibasilar atelectasis. Pleural spaces: No pleural effusion. No pneumoth orax. Heart/Mediastinum: Heart size is within normal l imits. Vasculature is unremarkable. Bones/joints: No acute osseous abnormalities. IMPRESSION: No acute cardiopulmonary findings. Miguelangel Luciano MD On 02/09/2021 21:20:47; -ABAXT [id number] PROCEDURE INFORMATION: WIL law 20:54:23-00:00 Exam: XR Chest Exam date and time: 02/09/2021 8:58 PM Age: 70 years old Clinical indication: Other: Epigastric p ain; Additional info: /epigastric pain TECHNIQUE: Imaging protocol: XR of the chest. Views: 2 views. PA and Lateral COMPARISON: ABDOMEN W IV CONTRAST CT 12/22/2020 9:22 AM FINDINGS: Lungs: Mild decreased lung volumes. No consolida tion. Mild bibasilar atelectasis. Pleural spaces: No pleural effusion. No pneumoth orax. Heart/Mediastinum: Heart size is within normal l imits. Vasculature is unremarkable. Bones/joints: No acute osseous abnormalities. IMPRESSION: No acute cardiopulmonary findings. Miguelangel Luciano MD On 02/09/2021 21:20:47; -ABAXT [id number] PROCEDURE INFORMATION: [place] ast 20:54:23-00:00 Exam: XR Chest Exam date and time: 02/09/2021 8:58 PM Age: 70 years old Clinical indication: Other: Epigastric p ain; Additional info: /epigastric pain TECHNIQUE: Imaging protocol: XR of the chest. Views: 2 views. PA and Lateral COMPARISON: ABDOMEN W IV CONTRAST CT 12/22/2020 9:22 AM FINDINGS: Lungs: Mild decreased lung volumes. No consolida tion. Mild bibasilar atelectasis. Pleural spaces: No pleural effusion. No pneumoth orax. Heart/Mediastinum: Heart size is within normal l imits. Vasculature is unremarkable. Bones/joints: No acute osseous abnormalities. IMPRESSION: No acute cardiopulmonary findings. Miguelangel Luciano MD On 02/09/2021 21:20:47; -ABAXT [id number] PROCEDURE INFORMATION: Sabas thanh 20:54:23-00:00 Exam: XR Chest Exam date and time: 02/09/2021 8:58 PM Age: 70 years old Clinical indication: Other: Epigastric p ain; Additional info: /epigastric pain TECHNIQUE: Imaging protocol: XR of the chest. Views: 2 views. PA and Lateral COMPARISON: ABDOMEN W IV CONTRAST CT 12/22/2020 9:22 AM FINDINGS: Lungs: Mild decreased lung volumes. No consolida tion. Mild bibasilar atelectasis. Pleural spaces: No pleural effusion. No pneumoth orax. Heart/Mediastinum: Heart size is within normal l imits. Vasculature is unremarkable. Bones/joints: No acute osseous abnormalities. IMPRESSION: No acute cardiopulmonary findings. Miguelangel Luciano MD On 02/09/2021 21:20:47; -ABAXT [id number] PROCEDURE INFORMATION: [place] ast 20:54:23-00:00 Exam: XR Chest Exam date and time: 02/09/2021 8:58 PM Age: 70 years old Clinical indication: Other: Epigastric p ain; Additional info: /epigastric pain TECHNIQUE: Imaging protocol: XR of the chest. Views: 2 views. PA and Lateral COMPARISON: ABDOMEN W IV CONTRAST CT 12/22/2020 9:22 AM FINDINGS: Lungs: Mild decreased lung volumes. No consolida tion. Mild bibasilar atelectasis. Pleural spaces: No pleural effusion. No pneumoth orax. Heart/Mediastinum: Heart size is within normal l imits. Vasculature is unremarkable. Bones/joints: No acute osseous abnormalities. IMPRESSION: No acute cardiopulmonary findings. Miguelangel Luciano MD On 02/09/2021 21:20:47; [facility] [id number] PROCEDURE INFORMATION: Sabas thanh 20:54:23-00:00 Exam: XR Chest Exam date and time: 02/09/2021 8:58 PM Age: 70 years old Clinical indication: Other: Epigastric p ain; Additional info: /epigastric pain TECHNIQUE: Imaging protocol: XR of the chest. Views: 2 views. PA and Lateral COMPARISON: ABDOMEN W IV CONTRAST CT 12/22/2020 9:22 AM FINDINGS: Lungs: Mild decreased lung volumes. No consolida tion. Mild bibasilar atelectasis. Pleural spaces: No pleural effusion. No pneumoth orax. Heart/Mediastinum: Heart size is within normal l imits. Vasculature is unremarkable. Bones/joints: No acute osseous abnormalities. IMPRESSION: No acute cardiopulmonary findings. Miguelangel Luciano MD On 02/09/2021 21:20:47; -ABAXT [id number] PROCEDURE INFORMATION: [place] ast 20:54:23-00:00 Exam: XR Chest Exam date and time: 02/09/2021 8:58 PM Age: 70 years old Clinical indication: Other: Epigastric p ain; Additional info: /epigastric pain TECHNIQUE: Imaging protocol: XR of the chest. Views: 2 views. PA and Lateral COMPARISON: ABDOMEN W IV CONTRAST CT 12/22/2020 9:22 AM FINDINGS: Lungs: Mild decreased lung volumes. No consolida tion. Mild bibasilar atelectasis. Pleural spaces: No pleural effusion. No pneumoth orax. Heart/Mediastinum: Heart size is within normal l imits. Vasculature is unremarkable. Bones/joints: No acute osseous abnormalities. IMPRESSION: No acute cardiopulmonary findings. Miguelangel Luciano MD On 02/09/2021 21:20:47; -ABAXT [id number] PROCEDURE INFORMATION: WIL law 20:54:23-00:00 Exam: XR Chest Exam date and time: 02/09/2021 8:58 PM Age: 70 years old Clinical indication: Other: Epigastric p ain; Additional info: /epigastric pain TECHNIQUE: Imaging protocol: XR of the chest. Views: 2 views. PA and Lateral COMPARISON: ABDOMEN W IV CONTRAST CT 12/22/2020 9:22 AM FINDINGS: Lungs: Mild decreased lung volumes. No consolida tion. Mild bibasilar atelectasis. Pleural spaces: No pleural effusion. No pneumoth orax. Heart/Mediastinum: Heart size is within normal l imits. Vasculature is unremarkable. Bones/joints: No acute osseous abnormalities. IMPRESSION: No acute cardiopulmonary findings. Miguelangel Luciano MD On 02/09/2021 21:20:47; RogerABAXT [id number] PROCEDURE INFORMATION: WIL law 20:54:23-00:00 Exam: XR Chest Exam date and time: 02/09/2021 8:58 PM Age: 70 years old Clinical indication: Other: Epigastric p ain; Additional info: /epigastric pain TECHNIQUE: Imaging protocol: XR of the chest. Views: 2 views. PA and Lateral COMPARISON: ABDOMEN W IV CONTRAST CT 12/22/2020 9:22 AM FINDINGS: Lungs: Mild decreased lung volumes. No consolida tion. Mild bibasilar atelectasis. Pleural spaces: No pleural effusion. No pneumoth orax. Heart/Mediastinum: Heart size is within normal l imits. Vasculature is unremarkable. Bones/joints: No acute osseous abnormalities. IMPRESSION: No acute cardiopulmonary findings. Miguelangel Luciano MD On 02/09/2021 21:20:47; [facility] [id number] PROCEDURE INFORMATION: WIL law 20:54:23-00:00 Exam: XR Chest Exam date and time: 02/09/2021 8:58 PM Age: 70 years old Clinical indication: Other: Epigastric p ain; Additional info: /epigastric pain TECHNIQUE: Imaging protocol: XR of the chest. Views: 2 views. PA and Lateral COMPARISON: ABDOMEN W IV CONTRAST CT 12/22/2020 9:22 AM FINDINGS: Lungs: Mild decreased lung volumes. No consolida tion. Mild bibasilar atelectasis. Pleural spaces: No pleural effusion. No pneumoth orax. Heart/Mediastinum: Heart size is within normal l imits. Vasculature is unremarkable. Bones/joints: No acute osseous abnormalities. IMPRESSION: No acute cardiopulmonary findings. Miguelangel Luciano MD On 02/09/2021 21:20:47; [facility] [id number] PROCEDURE INFORMATION: WIL law 20:54:23-00:00 Exam: XR Chest Exam date and time: 02/09/2021 8:58 PM Age: 70 years old Clinical indication: Other: Epigastric p ain; Additional info: /epigastric pain TECHNIQUE: Imaging protocol: XR of the chest. Views: 2 views. PA and Lateral COMPARISON: ABDOMEN W IV CONTRAST CT 12/22/2020 9:22 AM FINDINGS: Lungs: Mild decreased lung volumes. No consolida tion. Mild bibasilar atelectasis. Pleural spaces: No pleural effusion. No pneumoth orax. Heart/Mediastinum: Heart size is within normal l imits. Vasculature is unremarkable. Bones/joints: No acute osseous abnormalities. IMPRESSION: No acute cardiopulmonary findings. Miguelangel Luciano MD On 02/09/2021 21:20:47; -ABAXT [id number] PROCEDURE INFORMATION: WIL law 20:54:23-00:00 Exam: XR Chest Exam date and time: 02/09/2021 8:58 PM Age: 70 years old Clinical indication: Other: Epigastric p ain; Additional info: /epigastric pain TECHNIQUE: Imaging protocol: XR of the chest. Views: 2 views. PA and Lateral COMPARISON: ABDOMEN W IV CONTRAST CT 12/22/2020 9:22 AM FINDINGS: Lungs: Mild decreased lung volumes. No consolida tion. Mild bibasilar atelectasis. Pleural spaces: No pleural effusion. No pneumoth orax. Heart/Mediastinum: Heart size is within normal l imits. Vasculature is unremarkable. Bones/joints: No acute osseous abnormalities. IMPRESSION: No acute cardiopulmonary findings. Miguelangel Luciano MD On 02/09/2021 21:20:47; VR-ABAXT [id number] PROCEDURE INFORMATION: WIL [place] thanh 20:54:23-00:00 Exam: XR Chest Exam date and time: 02/09/2021 8:58 PM Age: 70 years old Clinical indication: Other: Epigastric p ain; Additional info: /epigastric pain TECHNIQUE: Imaging protocol: XR of the chest. Views: 2 views. PA and Lateral COMPARISON: ABDOMEN W IV CONTRAST CT 12/22/2020 9:22 AM FINDINGS: Lungs: Mild decreased lung volumes. No consolida tion. Mild bibasilar atelectasis. Pleural spaces: No pleural effusion. No pneumoth orax. Heart/Mediastinum: Heart size is within normal l imits. Vasculature is unremarkable. Bones/joints: No acute osseous abnormalities. IMPRESSION: No acute cardiopulmonary findings. Miguelangel Luciano MD On 02/09/2021 21:20:47; VR-ABAXT [id number] PROCEDURE INFORMATION: WIL law 20:54:23-00:00 Exam: XR Chest Exam date and time: 02/09/2021 8:58 PM Age: 70 years old Clinical indication: Other: Epigastric p ain; Additional info: /epigastric pain TECHNIQUE: Imaging protocol: XR of the chest. Views: 2 views. PA and Lateral COMPARISON: ABDOMEN W IV CONTRAST CT 12/22/2020 9:22 AM FINDINGS: Lungs: Mild decreased lung volumes. No consolida tion. Mild bibasilar atelectasis. Pleural spaces: No pleural effusion. No pneumoth orax. Heart/Mediastinum: Heart size is within normal l imits. Vasculature is unremarkable. Bones/joints: No acute osseous abnormalities. IMPRESSION: No acute cardiopulmonary findings. Miguelangel Luciano MD On 02/09/2021 21:20:47; VR-[facility]AXT [id number] Radiation Dose CTDIVOL = 0 (mGy): DLP = 499.56 ( mGy-cm) WIL Craig 09:04:00-00:00 PROCEDURE INFORMATION: Exam: CT Abdomen With Contrast Exam date and time: 12/22/2020 9:22 AM Age: 70 years old Clinical indication: Bariatric surgery status; A dditional info: /z98.84 bariatric surgery status; K21.9 gastro-esophagea l reflux disease without esophagitis; R13.10 dysphagia, unspecified; R10. 13 epigastric pain TECHNIQUE: Imaging protocol: Computed tomography images of the abdomen with intravenous contrast. Radiation optimization: All CT scans at this facility use at least one of these dose optimization techniques: automated exposure control; mA and/or kV adjustment per patient size (includes targeted e xams where dose is matched to clinical indication); or iterative reconstructio n. Contrast material: OMNI 300; Contrast volume: 10 0 ml; Contrast route: INTRAVENOUS (IV); Other contrast: Oral, omni/water, 900; COMPARISON: No relevant prior studies available. RADIATION DOSE METRICS: Total DLP (mGy-cm): 499.56 FINDINGS: Lungs: Mild lung base interstitial scarring. Liver: Mild fatty liver Gallbladder and bile ducts: Cholecystectomy, nor mal biliary system. Pancreas: Pancreas normal. Spleen: Spleen normal. Small accessory spleen. Adrenals: Adrenals normal. Kidneys and ureters: Minor right renal cortical scarring. No renal mass, calculus, hydronephrosis or perinephric strandin g. Stomach and bowel: Large hiatal hernia, probable prior fundoplasty. Moderate stool burden. Intraperitoneal space: No ascites Lymph nodes: No adenopathy. Vasculature: Minor atherosclerosis. Bones/joints: Lower lumbar hypertrophic facet ar thropathy, degenerative disc disease lumbosacral junction. Soft tissues: Small fat containing umbilical her emily. Other findings: Lower pelvis not imaged. IMPRESSION: 1. Large hiatal hernia, post presumed fundoplast y. 2. Moderate stool burden. 3. Mild fatty liver, cholecystectomy. 4. Small fat containing umbilical hernia. 5. Spondylosis and degenerative disc disease. Garrick Ronquillo MD On 12/26/2020 12:14:32; [facility] [id number] 2020-12-22 Radiation Dose CTDIVOL = 0 (mGy): DLP = 499.56 ( mGy-cm) WIL Craig 09:04:00-00:00 PROCEDURE INFORMATION: Exam: CT Abdomen With Contrast Exam date and time: 12/22/2020 9:22 AM Age: 70 years old Clinical indication: Bariatric surgery status; A dditional info: /z98.84 bariatric surgery status; K21.9 gastro-esophagea l reflux disease without esophagitis; R13.10 dysphagia, unspecified; R10. 13 epigastric pain TECHNIQUE: Imaging protocol: Computed tomography images of the abdomen with intravenous contrast. Radiation optimization: All CT scans at this facility use at least one of these dose optimization techniques: automated exposure control; mA and/or kV adjustment per patient size (includes targeted e xams where dose is matched to clinical indication); or iterative reconstructio n. Contrast material: OMNI 300; Contrast volume: 10 0 ml; Contrast route: INTRAVENOUS (IV); Other contrast: Oral, omni/water, 900; COMPARISON: No relevant prior studies available. RADIATION DOSE METRICS: Total DLP (mGy-cm): 499.56 FINDINGS: Lungs: Mild lung base interstitial scarring. Liver: Mild fatty liver Gallbladder and bile ducts: Cholecystectomy, nor mal biliary system. Pancreas: Pancreas normal. Spleen: Spleen normal. Small accessory spleen. Adrenals: Adrenals normal. Kidneys and ureters: Minor right renal cortical scarring. No renal mass, calculus, hydronephrosis or perinephric strandin g. Stomach and bowel: Large hiatal hernia, probable prior fundoplasty. Moderate stool burden. Intraperitoneal space: No ascites Lymph nodes: No adenopathy. Vasculature: Minor atherosclerosis. Bones/joints: Lower lumbar hypertrophic facet ar thropathy, degenerative disc disease lumbosacral junction. Soft tissues: Small fat containing umbilical her emily. Other findings: Lower pelvis not imaged. IMPRESSION: 1. Large hiatal hernia, post presumed fundoplast y. 2. Moderate stool burden. 3. Mild fatty liver, cholecystectomy. 4. Small fat containing umbilical hernia. 5. Spondylosis and degenerative disc disease. Garrick Ronquillo MD On 12/26/2020 12:14:32; [facility] [id number] 2020-12-22 Radiation Dose CTDIVOL = 0 (mGy): DLP = 499.56 ( mGy-cm) WIL Craig 09:04:00-00:00 PROCEDURE INFORMATION: Exam: CT Abdomen With Contrast Exam date and time: 12/22/2020 9:22 AM Age: 70 years old Clinical indication: Bariatric surgery status; A dditional info: /z98.84 bariatric surgery status; K21.9 gastro-esophagea l reflux disease without esophagitis; R13.10 dysphagia, unspecified; R10. 13 epigastric pain TECHNIQUE: Imaging protocol: Computed tomography images of the abdomen with intravenous contrast. Radiation optimization: All CT scans at this facility use at least one of these dose optimization techniques: automated exposure control; mA and/or kV adjustment per patient size (includes targeted e xams where dose is matched to clinical indication); or iterative reconstructio n. Contrast material: OMNI 300; Contrast volume: 10 0 ml; Contrast route: INTRAVENOUS (IV); Other contrast: Oral, omni/water, 900; COMPARISON: No relevant prior studies available. RADIATION DOSE METRICS: Total DLP (mGy-cm): 499.56 FINDINGS: Lungs: Mild lung base interstitial scarring. Liver: Mild fatty liver Gallbladder and bile ducts: Cholecystectomy, nor mal biliary system. Pancreas: Pancreas normal. Spleen: Spleen normal. Small accessory spleen. Adrenals: Adrenals normal. Kidneys and ureters: Minor right renal cortical scarring. No renal mass, calculus, hydronephrosis or perinephric strandin g. Stomach and bowel: Large hiatal hernia, probable prior fundoplasty. Moderate stool burden. Intraperitoneal space: No ascites Lymph nodes: No adenopathy. Vasculature: Minor atherosclerosis. Bones/joints: Lower lumbar hypertrophic facet ar thropathy, degenerative disc disease lumbosacral junction. Soft tissues: Small fat containing umbilical her emily. Other findings: Lower pelvis not imaged. IMPRESSION: 1. Large hiatal hernia, post presumed fundoplast y. 2. Moderate stool burden. 3. Mild fatty liver, cholecystectomy. 4. Small fat containing umbilical hernia. 5. Spondylosis and degenerative disc disease. Garrick Ronquillo MD On 12/26/2020 12:14:32; [facility] [id number] 2020-12-22 Radiation Dose CTDIVOL = 0 (mGy): DLP = 499.56 ( mGy-cm) WIL Craig 09:04:00-00:00 PROCEDURE INFORMATION: Exam: CT Abdomen With Contrast Exam date and time: 12/22/2020 9:22 AM Age: 70 years old Clinical indication: Bariatric surgery status; A dditional info: /z98.84 bariatric surgery status; K21.9 gastro-esophagea l reflux disease without esophagitis; R13.10 dysphagia, unspecified; R10. 13 epigastric pain TECHNIQUE: Imaging protocol: Computed tomography images of the abdomen with intravenous contrast. Radiation optimization: All CT scans at this facility use at least one of these dose optimization techniques: automated exposure control; mA and/or kV adjustment per patient size (includes targeted e xams where dose is matched to clinical indication); or iterative reconstructio n. Contrast material: OMNI 300; Contrast volume: 10 0 ml; Contrast route: INTRAVENOUS (IV); Other contrast: Oral, omni/water, 900; COMPARISON: No relevant prior studies available. RADIATION DOSE METRICS: Total DLP (mGy-cm): 499.56 FINDINGS: Lungs: Mild lung base interstitial scarring. Liver: Mild fatty liver Gallbladder and bile ducts: Cholecystectomy, nor mal biliary system. Pancreas: Pancreas normal. Spleen: Spleen normal. Small accessory spleen. Adrenals: Adrenals normal. Kidneys and ureters: Minor right renal cortical scarring. No renal mass, calculus, hydronephrosis or perinephric strandin g. Stomach and bowel: Large hiatal hernia, probable prior fundoplasty. Moderate stool burden. Intraperitoneal space: No ascites Lymph nodes: No adenopathy. Vasculature: Minor atherosclerosis. Bones/joints: Lower lumbar hypertrophic facet ar thropathy, degenerative disc disease lumbosacral junction. Soft tissues: Small fat containing umbilical her emily. Other findings: Lower pelvis not imaged. IMPRESSION: 1. Large hiatal hernia, post presumed fundoplast y. 2. Moderate stool burden. 3. Mild fatty liver, cholecystectomy. 4. Small fat containing umbilical hernia. 5. Spondylosis and degenerative disc disease. Garrick Ronquillo MD On 12/26/2020 12:14:32; [facility] [id number] 2020-12-22 Radiation Dose CTDIVOL = 0 (mGy): DLP = 499.56 ( mGy-cm) WIL Craig 09:04:00-00:00 PROCEDURE INFORMATION: Exam: CT Abdomen With Contrast Exam date and time: 12/22/2020 9:22 AM Age: 70 years old Clinical indication: Bariatric surgery status; A dditional info: /z98.84 bariatric surgery status; K21.9 gastro-esophagea l reflux disease without esophagitis; R13.10 dysphagia, unspecified; R10. 13 epigastric pain TECHNIQUE: Imaging protocol: Computed tomography images of the abdomen with intravenous contrast. Radiation optimization: All CT scans at this facility use at least one of these dose optimization techniques: automated exposure control; mA and/or kV adjustment per patient size (includes targeted e xams where dose is matched to clinical indication); or iterative reconstructio n. Contrast material: OMNI 300; Contrast volume: 10 0 ml; Contrast route: INTRAVENOUS (IV); Other contrast: Oral, omni/water, 900; COMPARISON: No relevant prior studies available. RADIATION DOSE METRICS: Total DLP (mGy-cm): 499.56 FINDINGS: Lungs: Mild lung base interstitial scarring. Liver: Mild fatty liver Gallbladder and bile ducts: Cholecystectomy, nor mal biliary system. Pancreas: Pancreas normal. Spleen: Spleen normal. Small accessory spleen. Adrenals: Adrenals normal. Kidneys and ureters: Minor right renal cortical scarring. No renal mass, calculus, hydronephrosis or perinephric strandin g. Stomach and bowel: Large hiatal hernia, probable prior fundoplasty. Moderate stool burden. Intraperitoneal space: No ascites Lymph nodes: No adenopathy. Vasculature: Minor atherosclerosis. Bones/joints: Lower lumbar hypertrophic facet ar thropathy, degenerative disc disease lumbosacral junction. Soft tissues: Small fat containing umbilical her emily. Other findings: Lower pelvis not imaged. IMPRESSION: 1. Large hiatal hernia, post presumed fundoplast y. 2. Moderate stool burden. 3. Mild fatty liver, cholecystectomy. 4. Small fat containing umbilical hernia. 5. Spondylosis and degenerative disc disease. Garrick Ronquillo MD On 12/26/2020 12:14:32; [facility] [id number] 2020-12-22 Radiation Dose CTDIVOL = 0 (mGy): DLP = 499.56 ( mGy-cm) VERA Craig 09:04:00-00:00 PROCEDURE INFORMATION: Exam: CT Abdomen With Contrast Exam date and time: 12/22/2020 9:22 AM Age: 70 years old Clinical indication: Bariatric surgery status; A dditional info: /z98.84 bariatric surgery status; K21.9 gastro-esophagea l reflux disease without esophagitis; R13.10 dysphagia, unspecified; R10. 13 epigastric pain TECHNIQUE: Imaging protocol: Computed tomography images of the abdomen with intravenous contrast. Radiation optimization: All CT scans at this facility use at least one of these dose optimization techniques: automated exposure control; mA and/or kV adjustment per patient size (includes targeted e xams where dose is matched to clinical indication); or iterative reconstructio n. Contrast material: OMNI 300; Contrast volume: 10 0 ml; Contrast route: INTRAVENOUS (IV); Other contrast: Oral, omni/water, 900; COMPARISON: No relevant prior studies available. RADIATION DOSE METRICS: Total DLP (mGy-cm): 499.56 FINDINGS: Lungs: Mild lung base interstitial scarring. Liver: Mild fatty liver Gallbladder and bile ducts: Cholecystectomy, nor mal biliary system. Pancreas: Pancreas normal. Spleen: Spleen normal. Small accessory spleen. Adrenals: Adrenals normal. Kidneys and ureters: Minor right renal cortical scarring. No renal mass, calculus, hydronephrosis or perinephric strandin g. Stomach and bowel: Large hiatal hernia, probable prior fundoplasty. Moderate stool burden. Intraperitoneal space: No ascites Lymph nodes: No adenopathy. Vasculature: Minor atherosclerosis. Bones/joints: Lower lumbar hypertrophic facet ar thropathy, degenerative disc disease lumbosacral junction. Soft tissues: Small fat containing umbilical her emily. Other findings: Lower pelvis not imaged. IMPRESSION: 1. Large hiatal hernia, post presumed fundoplast y. 2. Moderate stool burden. 3. Mild fatty liver, cholecystectomy. 4. Small fat containing umbilical hernia. 5. Spondylosis and degenerative disc disease. Garrick Ronquillo MD On 12/26/2020 12:14:32; MOHINI-Supriya [id number] 2020-12-22 Radiation Dose CTDIVOL = 0 (mGy): DLP = 499.56 ( mGy-cm) WIL Craig 09:04:00-00:00 PROCEDURE INFORMATION: Exam: CT Abdomen With Contrast Exam date and time: 12/22/2020 9:22 AM Age: 70 years old Clinical indication: Bariatric surgery status; A dditional info: /z98.84 bariatric surgery status; K21.9 gastro-esophagea l reflux disease without esophagitis; R13.10 dysphagia, unspecified; R10. 13 epigastric pain TECHNIQUE: Imaging protocol: Computed tomography images of the abdomen with intravenous contrast. Radiation optimization: All CT scans at this facility use at least one of these dose optimization techniques: automated exposure control; mA and/or kV adjustment per patient size (includes targeted e xams where dose is matched to clinical indication); or iterative reconstructio n. Contrast material: OMNI 300; Contrast volume: 10 0 ml; Contrast route: INTRAVENOUS (IV); Other contrast: Oral, omni/water, 900; COMPARISON: No relevant prior studies available. RADIATION DOSE METRICS: Total DLP (mGy-cm): 499.56 FINDINGS: Lungs: Mild lung base interstitial scarring. Liver: Mild fatty liver Gallbladder and bile ducts: Cholecystectomy, nor mal biliary system. Pancreas: Pancreas normal. Spleen: Spleen normal. Small accessory spleen. Adrenals: Adrenals normal. Kidneys and ureters: Minor right renal cortical scarring. No renal mass, calculus, hydronephrosis or perinephric strandin g. Stomach and bowel: Large hiatal hernia, probable prior fundoplasty. Moderate stool burden. Intraperitoneal space: No ascites Lymph nodes: No adenopathy. Vasculature: Minor atherosclerosis. Bones/joints: Lower lumbar hypertrophic facet ar thropathy, degenerative disc disease lumbosacral junction. Soft tissues: Small fat containing umbilical her emily. Other findings: Lower pelvis not imaged. IMPRESSION: 1. Large hiatal hernia, post presumed fundoplast y. 2. Moderate stool burden. 3. Mild fatty liver, cholecystectomy. 4. Small fat containing umbilical hernia. 5. Spondylosis and degenerative disc disease. Garrick Ronquillo MD On 12/26/2020 12:14:32; [facility] [id number] 2020-12-22 Radiation Dose CTDIVOL = 0 (mGy): DLP = 499.56 ( mGy-cm) VERA [place] 09:04:00-00:00 PROCEDURE INFORMATION: Exam: CT Abdomen With Contrast Exam date and time: 12/22/2020 9:22 AM Age: 70 years old Clinical indication: Bariatric surgery status; A dditional info: /z98.84 bariatric surgery status; K21.9 gastro-esophagea l reflux disease without esophagitis; R13.10 dysphagia, unspecified; R10. 13 epigastric pain TECHNIQUE: Imaging protocol: Computed tomography images of the abdomen with intravenous contrast. Radiation optimization: All CT scans at this facility use at least one of these dose optimization techniques: automated exposure control; mA and/or kV adjustment per patient size (includes targeted e xams where dose is matched to clinical indication); or iterative reconstructio n. Contrast material: OMNI 300; Contrast volume: 10 0 ml; Contrast route: INTRAVENOUS (IV); Other contrast: Oral, omni/water, 900; COMPARISON: No relevant prior studies available. RADIATION DOSE METRICS: Total DLP (mGy-cm): 499.56 FINDINGS: Lungs: Mild lung base interstitial scarring. Liver: Mild fatty liver Gallbladder and bile ducts: Cholecystectomy, nor mal biliary system. Pancreas: Pancreas normal. Spleen: Spleen normal. Small accessory spleen. Adrenals: Adrenals normal. Kidneys and ureters: Minor right renal cortical scarring. No renal mass, calculus, hydronephrosis or perinephric strandin g. Stomach and bowel: Large hiatal hernia, probable prior fundoplasty. Moderate stool burden. Intraperitoneal space: No ascites Lymph nodes: No adenopathy. Vasculature: Minor atherosclerosis. Bones/joints: Lower lumbar hypertrophic facet ar thropathy, degenerative disc disease lumbosacral junction. Soft tissues: Small fat containing umbilical her emily. Other findings: Lower pelvis not imaged. IMPRESSION: 1. Large hiatal hernia, post presumed fundoplast y. 2. Moderate stool burden. 3. Mild fatty liver, cholecystectomy. 4. Small fat containing umbilical hernia. 5. Spondylosis and degenerative disc disease. Garrick Ronquillo MD On 12/26/2020 12:14:32; [facility] [id number] 2020-12-22 Radiation Dose CTDIVOL = 0 (mGy): DLP = 499.56 ( mGy-cm) KACIEAna Lansford 09:04:00-00:00 PROCEDURE INFORMATION: Exam: CT Abdomen With Contrast Exam date and time: 12/22/2020 9:22 AM Age: 70 years old Clinical indication: Bariatric surgery status; A dditional info: /z98.84 bariatric surgery status; K21.9 gastro-esophagea l reflux disease without esophagitis; R13.10 dysphagia, unspecified; R10. 13 epigastric pain TECHNIQUE: Imaging protocol: Computed tomography images of the abdomen with intravenous contrast. Radiation optimization: All CT scans at this facility use at least one of these dose optimization techniques: automated exposure control; mA and/or kV adjustment per patient size (includes targeted e xams where dose is matched to clinical indication); or iterative reconstructio n. Contrast material: OMNI 300; Contrast volume: 10 0 ml; Contrast route: INTRAVENOUS (IV); Other contrast: Oral, omni/water, 900; COMPARISON: No relevant prior studies available. RADIATION DOSE METRICS: Total DLP (mGy-cm): 499.56 FINDINGS: Lungs: Mild lung base interstitial scarring. Liver: Mild fatty liver Gallbladder and bile ducts: Cholecystectomy, nor mal biliary system. Pancreas: Pancreas normal. Spleen: Spleen normal. Small accessory spleen. Adrenals: Adrenals normal. Kidneys and ureters: Minor right renal cortical scarring. No renal mass, calculus, hydronephrosis or perinephric strandin g. Stomach and bowel: Large hiatal hernia, probable prior fundoplasty. Moderate stool burden. Intraperitoneal space: No ascites Lymph nodes: No adenopathy. Vasculature: Minor atherosclerosis. Bones/joints: Lower lumbar hypertrophic facet ar thropathy, degenerative disc disease lumbosacral junction. Soft tissues: Small fat containing umbilical her emily. Other findings: Lower pelvis not imaged. IMPRESSION: 1. Large hiatal hernia, post presumed fundoplast y. 2. Moderate stool burden. 3. Mild fatty liver, cholecystectomy. 4. Small fat containing umbilical hernia. 5. Spondylosis and degenerative disc disease. Garrick Ronquillo MD On 12/26/2020 12:14:32; [facility] [id number] 2020-12-22 Radiation Dose CTDIVOL = 0 (mGy): DLP = 499.56 ( mGy-cm) VERA Rafa 09:04:00-00:00 PROCEDURE INFORMATION: Exam: CT Abdomen With Contrast Exam date and time: 12/22/2020 9:22 AM Age: 70 years old Clinical indication: Bariatric surgery status; A dditional info: /z98.84 bariatric surgery status; K21.9 gastro-esophagea l reflux disease without esophagitis; R13.10 dysphagia, unspecified; R10. 13 epigastric pain TECHNIQUE: Imaging protocol: Computed tomography images of the abdomen with intravenous contrast. Radiation optimization: All CT scans at this facility use at least one of these dose optimization techniques: automated exposure control; mA and/or kV adjustment per patient size (includes targeted e xams where dose is matched to clinical indication); or iterative reconstructio n. Contrast material: OMNI 300; Contrast volume: 10 0 ml; Contrast route: INTRAVENOUS (IV); Other contrast: Oral, omni/water, 900; COMPARISON: No relevant prior studies available. RADIATION DOSE METRICS: Total DLP (mGy-cm): 499.56 FINDINGS: Lungs: Mild lung base interstitial scarring. Liver: Mild fatty liver Gallbladder and bile ducts: Cholecystectomy, nor mal biliary system. Pancreas: Pancreas normal. Spleen: Spleen normal. Small accessory spleen. Adrenals: Adrenals normal. Kidneys and ureters: Minor right renal cortical scarring. No renal mass, calculus, hydronephrosis or perinephric strandin g. Stomach and bowel: Large hiatal hernia, probable prior fundoplasty. Moderate stool burden. Intraperitoneal space: No ascites Lymph nodes: No adenopathy. Vasculature: Minor atherosclerosis. Bones/joints: Lower lumbar hypertrophic facet ar thropathy, degenerative disc disease lumbosacral junction. Soft tissues: Small fat containing umbilical her emily. Other findings: Lower pelvis not imaged. IMPRESSION: 1. Large hiatal hernia, post presumed fundoplast y. 2. Moderate stool burden. 3. Mild fatty liver, cholecystectomy. 4. Small fat containing umbilical hernia. 5. Spondylosis and degenerative disc disease. Garrick Ronquillo MD On 12/26/2020 12:14:32; [facility] [id number] 2020-12-22 Radiation Dose CTDIVOL = 0 (mGy): DLP = 499.56 ( mGy-cm) VERA [place] 09:04:00-00:00 PROCEDURE INFORMATION: Exam: CT Abdomen With Contrast Exam date and time: 12/22/2020 9:22 AM Age: 70 years old Clinical indication: Bariatric surgery status; A dditional info: /z98.84 bariatric surgery status; K21.9 gastro-esophagea l reflux disease without esophagitis; R13.10 dysphagia, unspecified; R10. 13 epigastric pain TECHNIQUE: Imaging protocol: Computed tomography images of the abdomen with intravenous contrast. Radiation optimization: All CT scans at this facility use at least one of these dose optimization techniques: automated exposure control; mA and/or kV adjustment per patient size (includes targeted e xams where dose is matched to clinical indication); or iterative reconstructio n. Contrast material: OMNI 300; Contrast volume: 10 0 ml; Contrast route: INTRAVENOUS (IV); Other contrast: Oral, omni/water, 900; COMPARISON: No relevant prior studies available. RADIATION DOSE METRICS: Total DLP (mGy-cm): 499.56 FINDINGS: Lungs: Mild lung base interstitial scarring. Liver: Mild fatty liver Gallbladder and bile ducts: Cholecystectomy, nor mal biliary system. Pancreas: Pancreas normal. Spleen: Spleen normal. Small accessory spleen. Adrenals: Adrenals normal. Kidneys and ureters: Minor right renal cortical scarring. No renal mass, calculus, hydronephrosis or perinephric strandin g. Stomach and bowel: Large hiatal hernia, probable prior fundoplasty. Moderate stool burden. Intraperitoneal space: No ascites Lymph nodes: No adenopathy. Vasculature: Minor atherosclerosis. Bones/joints: Lower lumbar hypertrophic facet ar thropathy, degenerative disc disease lumbosacral junction. Soft tissues: Small fat containing umbilical her emily. Other findings: Lower pelvis not imaged. IMPRESSION: 1. Large hiatal hernia, post presumed fundoplast y. 2. Moderate stool burden. 3. Mild fatty liver, cholecystectomy. 4. Small fat containing umbilical hernia. 5. Spondylosis and degenerative disc disease. Garrick Ronquillo MD On 12/26/2020 12:14:32; [facility] [id number] 2020-12-22 Radiation Dose CTDIVOL = 0 (mGy): DLP = 499.56 ( mGy-cm) VERA [place] 09:04:00-00:00 PROCEDURE INFORMATION: Exam: CT Abdomen With Contrast Exam date and time: 12/22/2020 9:22 AM Age: 70 years old Clinical indication: Bariatric surgery status; A dditional info: /z98.84 bariatric surgery status; K21.9 gastro-esophagea l reflux disease without esophagitis; R13.10 dysphagia, unspecified; R10. 13 epigastric pain TECHNIQUE: Imaging protocol: Computed tomography images of the abdomen with intravenous contrast. Radiation optimization: All CT scans at this facility use at least one of these dose optimization techniques: automated exposure control; mA and/or kV adjustment per patient size (includes targeted e xams where dose is matched to clinical indication); or iterative reconstructio n. Contrast material: OMNI 300; Contrast volume: 10 0 ml; Contrast route: INTRAVENOUS (IV); Other contrast: Oral, omni/water, 900; COMPARISON: No relevant prior studies available. RADIATION DOSE METRICS: Total DLP (mGy-cm): 499.56 FINDINGS: Lungs: Mild lung base interstitial scarring. Liver: Mild fatty liver Gallbladder and bile ducts: Cholecystectomy, nor mal biliary system. Pancreas: Pancreas normal. Spleen: Spleen normal. Small accessory spleen. Adrenals: Adrenals normal. Kidneys and ureters: Minor right renal cortical scarring. No renal mass, calculus, hydronephrosis or perinephric strandin g. Stomach and bowel: Large hiatal hernia, probable prior fundoplasty. Moderate stool burden. Intraperitoneal space: No ascites Lymph nodes: No adenopathy. Vasculature: Minor atherosclerosis. Bones/joints: Lower lumbar hypertrophic facet ar thropathy, degenerative disc disease lumbosacral junction. Soft tissues: Small fat containing umbilical her emily. Other findings: Lower pelvis not imaged. IMPRESSION: 1. Large hiatal hernia, post presumed fundoplast y. 2. Moderate stool burden. 3. Mild fatty liver, cholecystectomy. 4. Small fat containing umbilical hernia. 5. Spondylosis and degenerative disc disease. Garrick Ronquillo MD On 12/26/2020 12:14:32; [facility] [id number] 2020-12-22 Radiation Dose CTDIVOL = 0 (mGy): DLP = 499.56 ( mGy-cm) VERA Craig 09:04:00-00:00 PROCEDURE INFORMATION: Exam: CT Abdomen With Contrast Exam date and time: 12/22/2020 9:22 AM Age: 70 years old Clinical indication: Bariatric surgery status; A dditional info: /z98.84 bariatric surgery status; K21.9 gastro-esophagea l reflux disease without esophagitis; R13.10 dysphagia, unspecified; R10. 13 epigastric pain TECHNIQUE: Imaging protocol: Computed tomography images of the abdomen with intravenous contrast. Radiation optimization: All CT scans at this facility use at least one of these dose optimization techniques: automated exposure control; mA and/or kV adjustment per patient size (includes targeted e xams where dose is matched to clinical indication); or iterative reconstructio n. Contrast material: OMNI 300; Contrast volume: 10 0 ml; Contrast route: INTRAVENOUS (IV); Other contrast: Oral, omni/water, 900; COMPARISON: No relevant prior studies available. RADIATION DOSE METRICS: Total DLP (mGy-cm): 499.56 FINDINGS: Lungs: Mild lung base interstitial scarring. Liver: Mild fatty liver Gallbladder and bile ducts: Cholecystectomy, nor mal biliary system. Pancreas: Pancreas normal. Spleen: Spleen normal. Small accessory spleen. Adrenals: Adrenals normal. Kidneys and ureters: Minor right renal cortical scarring. No renal mass, calculus, hydronephrosis or perinephric strandin g. Stomach and bowel: Large hiatal hernia, probable prior fundoplasty. Moderate stool burden. Intraperitoneal space: No ascites Lymph nodes: No adenopathy. Vasculature: Minor atherosclerosis. Bones/joints: Lower lumbar hypertrophic facet ar thropathy, degenerative disc disease lumbosacral junction. Soft tissues: Small fat containing umbilical her emily. Other findings: Lower pelvis not imaged. IMPRESSION: 1. Large hiatal hernia, post presumed fundoplast y. 2. Moderate stool burden. 3. Mild fatty liver, cholecystectomy. 4. Small fat containing umbilical hernia. 5. Spondylosis and degenerative disc disease. Garrick Ronquillo MD On 12/26/2020 12:14:32; [facility] [id number] 2020-12-22 Radiation Dose CTDIVOL = 0 (mGy): DLP = 499.56 ( mGy-cm) VERA Craig 09:04:00-00:00 PROCEDURE INFORMATION: Exam: CT Abdomen With Contrast Exam date and time: 12/22/2020 9:22 AM Age: 70 years old Clinical indication: Bariatric surgery status; A dditional info: /z98.84 bariatric surgery status; K21.9 gastro-esophagea l reflux disease without esophagitis; R13.10 dysphagia, unspecified; R10. 13 epigastric pain TECHNIQUE: Imaging protocol: Computed tomography images of the abdomen with intravenous contrast. Radiation optimization: All CT scans at this facility use at least one of these dose optimization techniques: automated exposure control; mA and/or kV adjustment per patient size (includes targeted e xams where dose is matched to clinical indication); or iterative reconstructio n. Contrast material: OMNI 300; Contrast volume: 10 0 ml; Contrast route: INTRAVENOUS (IV); Other contrast: Oral, omni/water, 900; COMPARISON: No relevant prior studies available. RADIATION DOSE METRICS: Total DLP (mGy-cm): 499.56 FINDINGS: Lungs: Mild lung base interstitial scarring. Liver: Mild fatty liver Gallbladder and bile ducts: Cholecystectomy, nor mal biliary system. Pancreas: Pancreas normal. Spleen: Spleen normal. Small accessory spleen. Adrenals: Adrenals normal. Kidneys and ureters: Minor right renal cortical scarring. No renal mass, calculus, hydronephrosis or perinephric strandin g. Stomach and bowel: Large hiatal hernia, probable prior fundoplasty. Moderate stool burden. Intraperitoneal space: No ascites Lymph nodes: No adenopathy. Vasculature: Minor atherosclerosis. Bones/joints: Lower lumbar hypertrophic facet ar thropathy, degenerative disc disease lumbosacral junction. Soft tissues: Small fat containing umbilical her emily. Other findings: Lower pelvis not imaged. IMPRESSION: 1. Large hiatal hernia, post presumed fundoplast y. 2. Moderate stool burden. 3. Mild fatty liver, cholecystectomy. 4. Small fat containing umbilical hernia. 5. Spondylosis and degenerative disc disease. Garrick Ronquillo MD On 12/26/2020 12:14:32; [facility] [id number] 2020-12-22 Radiation Dose CTDIVOL = 0 (mGy): DLP = 499.56 ( mGy-cm) IWL KACIEAna Craig 09:04:00-00:00 PROCEDURE INFORMATION: Exam: CT Abdomen With Contrast Exam date and time: 12/22/2020 9:22 AM Age: 70 years old Clinical indication: Bariatric surgery status; A dditional info: /z98.84 bariatric surgery status; K21.9 gastro-esophagea l reflux disease without esophagitis; R13.10 dysphagia, unspecified; R10. 13 epigastric pain TECHNIQUE: Imaging protocol: Computed tomography images of the abdomen with intravenous contrast. Radiation optimization: All CT scans at this facility use at least one of these dose optimization techniques: automated exposure control; mA and/or kV adjustment per patient size (includes targeted e xams where dose is matched to clinical indication); or iterative reconstructio n. Contrast material: OMNI 300; Contrast volume: 10 0 ml; Contrast route: INTRAVENOUS (IV); Other contrast: Oral, omni/water, 900; COMPARISON: No relevant prior studies available. RADIATION DOSE METRICS: Total DLP (mGy-cm): 499.56 FINDINGS: Lungs: Mild lung base interstitial scarring. Liver: Mild fatty liver Gallbladder and bile ducts: Cholecystectomy, nor mal biliary system. Pancreas: Pancreas normal. Spleen: Spleen normal. Small accessory spleen. Adrenals: Adrenals normal. Kidneys and ureters: Minor right renal cortical scarring. No renal mass, calculus, hydronephrosis or perinephric strandin g. Stomach and bowel: Large hiatal hernia, probable prior fundoplasty. Moderate stool burden. Intraperitoneal space: No ascites Lymph nodes: No adenopathy. Vasculature: Minor atherosclerosis. Bones/joints: Lower lumbar hypertrophic facet ar thropathy, degenerative disc disease lumbosacral junction. Soft tissues: Small fat containing umbilical her emily. Other findings: Lower pelvis not imaged. IMPRESSION: 1. Large hiatal hernia, post presumed fundoplast y. 2. Moderate stool burden. 3. Mild fatty liver, cholecystectomy. 4. Small fat containing umbilical hernia. 5. Spondylosis and degenerative disc disease. Garrick Ronquillo MD On 12/26/2020 12:14:32; [facility] [id number] 2020-12-22 Radiation Dose CTDIVOL = 0 (mGy): DLP = 499.56 ( mGy-cm) WIL Craig 09:04:00-00:00 PROCEDURE INFORMATION: Exam: CT Abdomen With Contrast Exam date and time: 12/22/2020 9:22 AM Age: 70 years old Clinical indication: Bariatric surgery status; A dditional info: /z98.84 bariatric surgery status; K21.9 gastro-esophagea l reflux disease without esophagitis; R13.10 dysphagia, unspecified; R10. 13 epigastric pain TECHNIQUE: Imaging protocol: Computed tomography images of the abdomen with intravenous contrast. Radiation optimization: All CT scans at this facility use at least one of these dose optimization techniques: automated exposure control; mA and/or kV adjustment per patient size (includes targeted e xams where dose is matched to clinical indication); or iterative reconstructio n. Contrast material: OMNI 300; Contrast volume: 10 0 ml; Contrast route: INTRAVENOUS (IV); Other contrast: Oral, omni/water, 900; COMPARISON: No relevant prior studies available. RADIATION DOSE METRICS: Total DLP (mGy-cm): 499.56 FINDINGS: Lungs: Mild lung base interstitial scarring. Liver: Mild fatty liver Gallbladder and bile ducts: Cholecystectomy, nor mal biliary system. Pancreas: Pancreas normal. Spleen: Spleen normal. Small accessory spleen. Adrenals: Adrenals normal. Kidneys and ureters: Minor right renal cortical scarring. No renal mass, calculus, hydronephrosis or perinephric strandin g. Stomach and bowel: Large hiatal hernia, probable prior fundoplasty. Moderate stool burden. Intraperitoneal space: No ascites Lymph nodes: No adenopathy. Vasculature: Minor atherosclerosis. Bones/joints: Lower lumbar hypertrophic facet ar thropathy, degenerative disc disease lumbosacral junction. Soft tissues: Small fat containing umbilical her emily. Other findings: Lower pelvis not imaged. IMPRESSION: 1. Large hiatal hernia, post presumed fundoplast y. 2. Moderate stool burden. 3. Mild fatty liver, cholecystectomy. 4. Small fat containing umbilical hernia. 5. Spondylosis and degenerative disc disease. Garrick Ronquillo MD On 12/26/2020 12:14:32; [facility] [id number] 2020-12-22 Radiation Dose CTDIVOL = 0 (mGy): DLP = 499.56 ( mGy-cm) VERA [place] 09:04:00-00:00 PROCEDURE INFORMATION: Exam: CT Abdomen With Contrast Exam date and time: 12/22/2020 9:22 AM Age: 70 years old Clinical indication: Bariatric surgery status; A dditional info: /z98.84 bariatric surgery status; K21.9 gastro-esophagea l reflux disease without esophagitis; R13.10 dysphagia, unspecified; R10. 13 epigastric pain TECHNIQUE: Imaging protocol: Computed tomography images of the abdomen with intravenous contrast. Radiation optimization: All CT scans at this facility use at least one of these dose optimization techniques: automated exposure control; mA and/or kV adjustment per patient size (includes targeted e xams where dose is matched to clinical indication); or iterative reconstructio n. Contrast material: OMNI 300; Contrast volume: 10 0 ml; Contrast route: INTRAVENOUS (IV); Other contrast: Oral, omni/water, 900; COMPARISON: No relevant prior studies available. RADIATION DOSE METRICS: Total DLP (mGy-cm): 499.56 FINDINGS: Lungs: Mild lung base interstitial scarring. Liver: Mild fatty liver Gallbladder and bile ducts: Cholecystectomy, nor mal biliary system. Pancreas: Pancreas normal. Spleen: Spleen normal. Small accessory spleen. Adrenals: Adrenals normal. Kidneys and ureters: Minor right renal cortical scarring. No renal mass, calculus, hydronephrosis or perinephric strandin g. Stomach and bowel: Large hiatal hernia, probable prior fundoplasty. Moderate stool burden. Intraperitoneal space: No ascites Lymph nodes: No adenopathy. Vasculature: Minor atherosclerosis. Bones/joints: Lower lumbar hypertrophic facet ar thropathy, degenerative disc disease lumbosacral junction. Soft tissues: Small fat containing umbilical her emily. Other findings: Lower pelvis not imaged. IMPRESSION: 1. Large hiatal hernia, post presumed fundoplast y. 2. Moderate stool burden. 3. Mild fatty liver, cholecystectomy. 4. Small fat containing umbilical hernia. 5. Spondylosis and degenerative disc disease. Garrick Ronquillo MD On 12/26/2020 12:14:32; MOHINI-Supriya [id number] 2020-12-22 Radiation Dose CTDIVOL = 0 (mGy): DLP = 499.56 ( mGy-cm) VERA [place] 09:04:00-00:00 PROCEDURE INFORMATION: Exam: CT Abdomen With Contrast Exam date and time: 12/22/2020 9:22 AM Age: 70 years old Clinical indication: Bariatric surgery status; A dditional info: /z98.84 bariatric surgery status; K21.9 gastro-esophagea l reflux disease without esophagitis; R13.10 dysphagia, unspecified; R10. 13 epigastric pain TECHNIQUE: Imaging protocol: Computed tomography images of the abdomen with intravenous contrast. Radiation optimization: All CT scans at this facility use at least one of these dose optimization techniques: automated exposure control; mA and/or kV adjustment per patient size (includes targeted e xams where dose is matched to clinical indication); or iterative reconstructio n. Contrast material: OMNI 300; Contrast volume: 10 0 ml; Contrast route: INTRAVENOUS (IV); Other contrast: Oral, omni/water, 900; COMPARISON: No relevant prior studies available. RADIATION DOSE METRICS: Total DLP (mGy-cm): 499.56 FINDINGS: Lungs: Mild lung base interstitial scarring. Liver: Mild fatty liver Gallbladder and bile ducts: Cholecystectomy, nor mal biliary system. Pancreas: Pancreas normal. Spleen: Spleen normal. Small accessory spleen. Adrenals: Adrenals normal. Kidneys and ureters: Minor right renal cortical scarring. No renal mass, calculus, hydronephrosis or perinephric strandin g. Stomach and bowel: Large hiatal hernia, probable prior fundoplasty. Moderate stool burden. Intraperitoneal space: No ascites Lymph nodes: No adenopathy. Vasculature: Minor atherosclerosis. Bones/joints: Lower lumbar hypertrophic facet ar thropathy, degenerative disc disease lumbosacral junction. Soft tissues: Small fat containing umbilical her emily. Other findings: Lower pelvis not imaged. IMPRESSION: 1. Large hiatal hernia, post presumed fundoplast y. 2. Moderate stool burden. 3. Mild fatty liver, cholecystectomy. 4. Small fat containing umbilical hernia. 5. Spondylosis and degenerative disc disease. Garrick Ronquillo MD On 12/26/2020 12:14:32; [facility] [id number] 2020-12-22 Radiation Dose CTDIVOL = 0 (mGy): DLP = 499.56 ( mGy-cm) VERA Lansford 09:04:00-00:00 PROCEDURE INFORMATION: Exam: CT Abdomen With Contrast Exam date and time: 12/22/2020 9:22 AM Age: 70 years old Clinical indication: Bariatric surgery status; A dditional info: /z98.84 bariatric surgery status; K21.9 gastro-esophagea l reflux disease without esophagitis; R13.10 dysphagia, unspecified; R10. 13 epigastric pain TECHNIQUE: Imaging protocol: Computed tomography images of the abdomen with intravenous contrast. Radiation optimization: All CT scans at this facility use at least one of these dose optimization techniques: automated exposure control; mA and/or kV adjustment per patient size (includes targeted e xams where dose is matched to clinical indication); or iterative reconstructio n. Contrast material: OMNI 300; Contrast volume: 10 0 ml; Contrast route: INTRAVENOUS (IV); Other contrast: Oral, omni/water, 900; COMPARISON: No relevant prior studies available. RADIATION DOSE METRICS: Total DLP (mGy-cm): 499.56 FINDINGS: Lungs: Mild lung base interstitial scarring. Liver: Mild fatty liver Gallbladder and bile ducts: Cholecystectomy, nor mal biliary system. Pancreas: Pancreas normal. Spleen: Spleen normal. Small accessory spleen. Adrenals: Adrenals normal. Kidneys and ureters: Minor right renal cortical scarring. No renal mass, calculus, hydronephrosis or perinephric strandin g. Stomach and bowel: Large hiatal hernia, probable prior fundoplasty. Moderate stool burden. Intraperitoneal space: No ascites Lymph nodes: No adenopathy. Vasculature: Minor atherosclerosis. Bones/joints: Lower lumbar hypertrophic facet ar thropathy, degenerative disc disease lumbosacral junction. Soft tissues: Small fat containing umbilical her emily. Other findings: Lower pelvis not imaged. IMPRESSION: 1. Large hiatal hernia, post presumed fundoplast y. 2. Moderate stool burden. 3. Mild fatty liver, cholecystectomy. 4. Small fat containing umbilical hernia. 5. Spondylosis and degenerative disc disease. Garrick Ronquillo MD On 12/26/2020 12:14:32; [facility] [id number]
[2023-02-17 04:33] LABS: Albumin 3.2 g/dL (3.4-5.0); Bilirubin Direct 0.2 mg/dL (0-0.2); Bilirubin Indirect, Calculated 0.1 mg/dL (0.2-0.8); Bilirubin Total 0.3 mg/dL (0.2-1.0); Magnesium 2.9 mg/dL (1.6-2.4); Protein, Total 6.8 g/dL (6.4-8.2); Troponin High Sensitivity 22.8 pg/mL (<58.9)
[2023-02-17] MEDS ORDERED: KCL 20 MEQ/100 mL IVPB 100 ML IV ONE (04:59)
[2023-02-17 05:17] LABS: Blood Morphology Comment NOT SEEN (NOT SEEN); Platelet Estimate ADEQ
[2023-02-17 06:34] LABS: Blood Gas Oxyhemoglobin 95.1 % (94-97); Blood O2 Saturation 96.6 % (92-98.5)
[2023-02-17 06:49] LABS: Specific Gravity 1.013 (1.005-1.030); Urine Bacteria >50 /HPF (<20); Urine Bilirubin NEGATIVE (Negative); Urine Blood 3+ (Negative); Urine Clarity Extremely Turbid (Clear); Urine Color Light-Yellow (Yellow); Urine Glucose 4+ (Over) (Negative); Urine Mucus Slight /HPF (None Seen); Urine Protein 2+ (Negative); Urine Urobilinogen Normal (Normal); Urine pH 5.5 (5.0-7.0)
[2023-02-17] MEDS ORDERED: NA CHLORIDE 0.9% 100 ML ONE (06:49)
[2023-02-17] MEDS ORDERED: CEFEPIME 1 GM/VIAL ONE (06:50)
[2023-02-17 06:53] LABS: Barbiturates NEGATIVE (NEGATIVE); Benzodiazepines POSITIVE (NEGATIVE); Cocaine NEGATIVE (NEGATIVE); METHAMPHETAM NEGATIVE (NEGATIVE); Methadone NEGATIVE (NEGATIVE); Opiates NEGATIVE (NEGATIVE); Phencyclidine NEGATIVE (NEGATIVE); THC Cannibis NEGATIVE (NEGATIVE)
[2023-02-17] MEDS ORDERED: NA CHLORIDE 0.9% 250 ML ONE (06:54)
[2023-02-17] MEDS ORDERED: VANCOMYCIN 1 GM/VIAL ONE (06:54)
[2023-02-17] MEDS ORDERED: EPINEPHrine 4 MG in NA CHLORIDE 0.9% 250 ML IV SCH (08:00)
[2023-02-17 08:52] VITALS: BP 166/72; TEMP 94.3; O2SAT 96
--- NOTE | 2023-02-17 15:04 | EKG ---
Test Date: 2023-02-17 Test Time: 02:36:06 Scrap Worker: MARTA MEASUREMENT RESULTS: Intervals: Rate: 124 MA: 164 QRSD: 150 QT: 332 QTc: 476 [place]: P: 67 MA: 164 QRS: 141 T: -7 INTERPRETIVE STATEMENTS: Sinus tachycardia with fusion complexes Right atrial enlargement Right bundle branch block Possible Lateral infarct, age undetermined Cannot rule out Inferior infarct, age undetermined Abnormal ECG No previous ECG available for comparison Electronically Signed On 02-17-23 15:04:35 CDT by Michele Pickard
--- NOTE | 2023-02-18 09:55 | RAD REPORT ---
EXAM DESCRIPTION: CT - Angio Aorta For Dissection - 02/17/2023 6:52 am CLINICAL HISTORY: Cardiac arrest COMPARISON: None Available. TECHNIQUE: CTA of the chest obtained following IV administration of iodinated contrast. 3-D/MIP refo rmatted images available. CT of the abdomen and pelvis was then performed in the portal venous phase This exam was performed according to our departmental dose-optimization program, which includes autom ated exposure control, adjustment of the mA and/or kV according to patient size and/or use of iterati ve reconstruction technique. FINDINGS: Chest: Pulmonary arteries: Contrast bolus is adequate.No filling defects identified in the pulmonary arterie s to suggest pulmonary embolus. Thyroid: No abnormalities of the visualized thyroid. Great Vessels: Great vessels have normal anatomic configuration. Thoracic Aorta: Atherosclerotic calcification. Normal caliber thoracic aorta. No thoracic aortic diss ection. Heart: No cardiomegaly, significant pericardial effusion, or coronary artery atherosclerosis Lymph Nodes: No enlarged mediastinal lymph nodes identified. Esophagus: Large hiatal hernia. Patulous esophagus which is fluid-filled. Other: No additional findings. Lungs: Bilateral dependent consolidation throughout the upper and lower lobes with air bronchograms a nd mild adjacent groundglass opacities. Pleura: No pleural effusion or pneumothorax. Trachea/Airways: Endotracheal tube with tip terminating above the jose. Abdomen: Liver: Hepatomegaly with diffusely decreased density. Gallbladder: No calcified gallstones. Spleen, Pancreas, and Adrenal Glands: The spleen, pancreas, and adrenal glands are unremarkable. Kidneys: Mild bilateral hydronephrosis. Vasculature: Normal caliber abdominal aorta aortoiliac atherosclerosis. There is straight-line flow i nto the common iliac, external iliac, common femoral, proximal superficial femoral arteries. The visc eral and renal arteries are patent. IVC is normal caliber. Stomach: Large hiatal hernia. Other: No free intraperitoneal air. No free fluid or lymphadenopathy. Tiny fat-containing umbilic al hernia. Pelvis: Bladder: Urinary bladder is unremarkable. Bowel: Long segment mild wall thickening and enhancement of the small bowel. Large amount of stool in the rectum. Appendix: Normal appendix. Pelvis: Uterus is not enlarged. Bones: Acute fractures of the right third through seventh ribs. Acute fractures of the left fourth th rough ninth ribs. Proximal left femoral fixation. Mild endplate spondylosis and facet arthropathy. Os teoarthritic change of the hips. IMPRESSION: 1. No evidence of aortic dissection or aneurysm. No pulmonary embolus. 2. Bilateral dependent consolidation throughout the upper and lower lobes with air bronchograms and mild adjacent groundglass opacities. Findings concerning for aspiration. 3. Long segment mild wall thickening and enhancement of the small bowel. Findings suggestive of ent eritis. Ischemic enteritis on the basis of systemic hypovolemia could produce this appearance. Contin ued follow-up recommended. 4. Large hiatal hernia. 5. Hepatomegaly and hepatic steatosis. 6. Mild bilateral hydronephrosis. 7. Large amount of stool in the rectum. 8. Acute fractures of the right third through seventh ribs and left fourth through ninth ribs. 9. Patulous esophagus which is fluid-filled. This places the patient at risk for aspiration. Electronically signed by: Glen Teague 02/17/2023 6:38 AM CDT Due to temporary technical issues with the PACS/Fluency reporting system, reports are being signed by the in house radiologist without review as a courtesy to ensure prompt reporting. The interpreting r adiologist is fully responsible for the content of the report.
--- NOTE | 2023-02-18 10:00 | RAD REPORT ---
EXAM DESCRIPTION: CT - Head Brain Wo Cont - 02/17/2023 6:53 am CLINICAL HISTORY: Cardiac Arrest COMPARISON: 11/04/2020 TECHNIQUE: Axial CT of the head obtained from the skull apex to the skull base without contrast. Thi s exam was performed according to our departmental dose-optimization program, which includes automate d exposure control, adjustment of the mA and/or kV according to patient size and/or use of iterative reconstruction technique. FINDINGS: No acute intracranial hemorrhage identified. No mass effect or midline shift. Loss of kaur -white matter differentiation involving the cerebral hemispheres as well as the basal ganglia. The ve ntricular system and sulcal spaces are mildly enlarged compatible with mild cerebral atrophy. Scatt ered areas of hypodensity throughout the supratentorial white matter are nonspecific and may be relat ed to chronic small vessel ischemic change. The visualized paranasal sinuses and mastoid air cells are well aerated. No skull fracture identifi ed. Visualized orbits and globes are unremarkable. Atherosclerotic calcification of the intracranial internal carotid arteries. Partial visualization of endotracheal tube. IMPRESSION: 1. No acute intracranial hemorrhage. 2. Loss of kaur-white matter differentiation involving the cerebral hemispheres as well as the basal ganglia. These findings suggest hypoxic ischemic encephalopathy. Electronically signed by: Glen Teague 02/17/2023 4:37 AM CDT Due to temporary technical issues with the PACS/Fluency reporting system, reports are being signed by the in house radiologist without review as a courtesy to ensure prompt reporting. The interpreting r adiologist is fully responsible for the content of the report.
--- NOTE | 2023-02-18 10:09 | RAD REPORT ---
EXAM DESCRIPTION: CT - C Spine Wo Con - 02/17/2023 6:53 am ADDENDUM #1 Findings were discussed with Dr. Dionisio Damon by telephone at 6:28 AM central standard time on 02/18/20 Electronically signed by: Vanda Herrera MD 02/17/2023 6:31 AM CDT End of Addendum EXAM DESCRIPTION: CT CERVICAL SPINE WITHOUT IV CONTRAST TECHNIQUE: Computerized tomography of the cervical spine was performed from the skull base to T1 wit hout contrast material. This exam was performed according to our department optimization program whic h includes automated exposure control, adjustment of the mA and/or kV according to patient size, and/ or use of iterative reconstruction technique. CLINICAL HISTORY: Fall and pain COMPARISONS: None. FINDINGS: There is an acute displaced fracture through the C2 vertebra at the base of the odontoid p rocess, extending into the body. There is 3 mm retropulsion of a fracture fragment. There is no exten varghese to the pedicles/posterior elements. There is a small acute 2 mm fracture fragment projecting off the C5 anterior inferior endplate. The vertebral body heights and alignment are otherwise preserved. Underlying multilevel degenerative disc changes are present. There are bilateral upper lung infiltrates, right greater than left. IMPRESSION: Acute displaced fracture through the base of the odontoid process of C2, extending into the body. There is 3 mm retropulsion of the cortex of the fracture site. Small fracture identified projecting off the anterior inferior endplate of C5 . Electronically signed by: Vanda Herrera MD 02/17/2023 6:26 AM CDT Due to temporary technical issues with the PACS/Fluency reporting system, reports are being signed by the in house radiologist without review as a courtesy to ensure prompt reporting. The interpreting r adiologist is fully responsible for the content of the report.
--- NOTE | 2023-02-18 10:10 | RAD REPORT ---
EXAM DESCRIPTION: CT - Facial Bones W/ Mpr - 02/17/2023 6:52 am CLINICAL HISTORY: The patient is 72 years old and is Female; fall, cardiac arrest TECHNIQUE: Axial computed tomography images of the face without intravenous contrast. Sagittal and coronal reformatted images were created and reviewed. This CT exam was performed using one or more of the following dose reduction techniques: automated exposure control, adjustment of the mA and/o r kV according to patient size, and/or use of iterative reconstruction technique. COMPARISON: No relevant prior studies available. FINDINGS: Bones/joints: No acute facial fracture visualized. Acute C2 fracture. Degenerative changes in the visualized cervical spine. Soft tissues: Unremarkable. Orbits: Unremarkable. Sinuses: Unremarkable. No air-fluid levels. Tubes, lines and devices: ET tube visualized. IMPRESSION: 1. No acute facial fracture visualized. 2. Acute C2 fracture. The finding of C2 fracture was communicated to Dr. Damon by Dr. Vanda Herrera at 6:35 AM central time [facility] 2022. Electronically signed by: Namrata Plascencia MD 02/17/2023 6:36 AM CDT Due to temporary technical issues with the PACS/Fluency reporting system, reports are being signed by the in house radiologist without review as a courtesy to ensure prompt reporting. The interpreting r adiologist is fully responsible for the content of the report.
--- NOTE | 2023-02-18 10:13 | RAD REPORT ---
EXAM DESCRIPTION: RAD - Chest Single View - 02/17/2023 2:58 am CLINICAL HISTORY: The patient is 72 years old and is Female; POST ETT TECHNIQUE: Frontal view of the chest. COMPARISON: No relevant prior studies available. FINDINGS: Lungs: Hazy opacification of the upper right lung and left lung base. Prominent interstitial markings suggestive of interstitial edema. Pleural space: Left hemidiaphragm is obscured which can be seen with left pleural effusion, as we ll as left lower lobe consolidation or atelectasis. No pneumothorax. Heart: Unremarkable. Mediastinum: Unremarkable. Bones/joints: Unremarkable. Tubes, lines and devices: Endotracheal tube with tip 2.4 cm above the jose. IMPRESSION: 1. Hazy opacification of the upper right lung and left lung base. 2. Prominent interstitial markings suggestive of interstitial edema. 3. Left hemidiaphragm is obscured which can be seen with left pleural effusion, as well as left low er lobe consolidation or atelectasis. Electronically signed by: Chin Montilla MD 02/17/2023 3:24 AM CDT Due to temporary technical issues with the PACS/Fluency reporting system, reports are being signed by the in house radiologist without review as a courtesy to ensure prompt reporting. The interpreting r adiologist is fully responsible for the content of the report.
--- NOTE | 2023-02-18 10:14 | RAD REPORT ---
EXAM DESCRIPTION: RAD - Chest Single View - 02/17/2023 3:53 am CLINICAL HISTORY: The patient is 72 years old and is Female; line insertion TECHNIQUE: Frontal view of the chest. COMPARISON: February 17, 2023 2:51 AM FINDINGS: Lungs: Prominent interstitial markings suggestive of interstitial edema. Hazy opacification of the right upper lung and left lung base. Pleural space: Left hemidiaphragm is obscured which can be seen with left pleural effusion, as we ll as left lower lobe consolidation or atelectasis. No pneumothorax. Heart: Unremarkable. Mediastinum: Unremarkable. Bones/joints: Unremarkable. Tubes, lines and devices: Left central venous catheter with tip at the cavoatrial junction or in the right atrium. Endotracheal tube with tip 4.8 cm above the jose. IMPRESSION: 1. Left central venous catheter with tip at the cavoatrial junction or in the right at rium. 2. Prominent interstitial markings suggestive of interstitial edema. 3. Hazy opacification of the right upper lung and left lung base. 4. Left hemidiaphragm is obscured which can be seen with left pleural effusion, as well as left low er lobe consolidation or atelectasis. Electronically signed by: Chin Montilla MD 02/17/2023 4:05 AM CDT Due to temporary technical issues with the PACS/Fluency reporting system, reports are being signed by the in house radiologist without review as a courtesy to ensure prompt reporting. The interpreting r adiologist is fully responsible for the content of the report.
== END 2023-02-17 08:28 | disposition short-term general hospital (02) ==
LOC: ER 02:33
PROC: 05HN33Z Insertion of Infusion Device into Left Internal Jugular Vein, Percutaneous Approach (ICD-10-PCS; principal; 2023-02-17)
DX: I46.9 Cardiac arrest, cause unspecified (principal); I95.9 Hypotension, unspecified; E87.20 Acidosis, unspecified; S12.100A Unspecified displaced fracture of second cervical vertebra, initial encounter for closed fracture
CPT/HCPCS: 93005; 87040 ×2; 87088; 85025; 81001; 87086; 80048; 36415; 86900; 83735; 86850; 85610; 86901; 80076; 83605; 84484; 80307; 70450; 72125; 70486; 76377; 71275; 74175; 71045 ×2; 82805 ×2; 36600 ×2; 94002; 36556; Q9967; J3480; J2250; J0171 ×2; J7060; J7050 ×2; J0692; 51702; 87077; 87186; 99291; 99292